=== PATIENT | female | born 1950 | race Caucasian/White ===

== ENCOUNTER → 2018-02-03 10:30 | Outpatient (CLI) | payer MEDICARE, MEDICAID, SELFPAY | PROVIDERS: PCP Nurse Practitioner Family; Visit Provider Nurse Practitioner Gerontology | DX: R33.9 Retention of urine, unspecified (principal); E11.9 Type 2 diabetes mellitus without complications | CPT/HCPCS: 51705 ==

== ENCOUNTER 2018-03-01 09:16 | Outpatient (CLI) | payer MEDICARE, MEDICAID, SELFPAY | END 2018-03-01 09:36 | PROVIDERS: PCP Nurse Practitioner Family; Visit Provider Nurse Practitioner Gerontology | DX: R33.9 Retention of urine, unspecified (principal) | CPT/HCPCS: 51705; 99213 ==

== ENCOUNTER → 2018-03-24 09:18 | Outpatient (BNVA) | payer MEDICARE, MEDICAID, SELFPAY | PROVIDERS: Visit Provider Nurse Practitioner Gerontology | DX: R33.9 Retention of urine, unspecified (principal) | CPT/HCPCS: 51705; 99213 ==

== ENCOUNTER → 2018-04-19 09:18 | Outpatient (BNVA) | payer MEDICARE, MEDICAID, SELFPAY | PROVIDERS: PCP Nurse Practitioner Family; Visit Provider Urology | DX: R33.9 Retention of urine, unspecified (principal) | CPT/HCPCS: 51705; 99211 ==

== ENCOUNTER → 2018-05-10 09:15 | Outpatient (BNVA) | payer MEDICARE, MEDICAID, SELFPAY | PROVIDERS: PCP Nurse Practitioner Family; Visit Provider Nurse Practitioner Gerontology | DX: R33.9 Retention of urine, unspecified (principal) | CPT/HCPCS: 51705; 99213 ==

== ENCOUNTER 2018-05-16 19:58 | Emergency (ER) | payer MEDICARE, MEDICAID, SELFPAY ==
[2018-05-16 20:00] VITALS: BP 107/50; PULSE 79; RESP 20; TEMP 36.2; O2SAT 97
--- NOTE | 2018-05-16 20:11 | W.ED.GENAD ---
Discharge Plan Disposition Patient Disposition: HOME Condition: Stable Discharge Details Chief Complaint: Diabetes Clinical Impression: Hypoglycemia Reason For Visit: SAVANA Primary Care Provider: Bruna Cardenas ED Provider: Guillermo Ford Home Meds and New Rx's Prescriptions: Continue nystatin (bulk) 1 EACH powder 1 ea Miscellaneous QID PRNQty: 1 RF: 12 diaper,brief,adult,disposable [Depend Underwear For Women S-M] 1 EACH misc 1 ea Miscellaneous TID Qty: 100 RF: 12 omeprazole 20 MG capsule,delayed release(DR/EC) 20 mg PO DAILY RF: 0 rivaroxaban [Xarelto] 20 MG tablet 20 mg PO DAILY RF: 0 diltiazem HCl [Cartia XT] 120 MG capsule,extended release 24hr 240 mg PO DAILY Qty: 0 RF: 0 metformin [Glucophage] 1,000 MG tablet 1 tab PO BID RF: 0 metoprolol succinate [Toprol XL] 100 MG tablet extended release 24 hr 100 mg PO BID RF: 0 magnesium oxide [MagOx] 400 MG tablet 400 mg PO DAILY Qty: 30 RF: 0 insulin glargine [Lantus Solostar U-100 Insulin] 300 UNITS/3 ML insulin pen 40 units Sub-Q HS RF: 0 atorvastatin 20 mg Tablet 20 mg PO DAILY RF: 0 insulin aspart U-100 [Novolog PenFill U-100 Insulin] 100 UNIT/ML cartridge 10 - 12 units Sub-Q BID RF: 0 Discharge Instructions Instructions: Diabetic Hypoglycemia (ED) Additional Instructions: follow up with your primary care provider within 1-2 weeks IF you have difficulty breathing, chest pain/pressure, or fevers return to the emergency department Medical Decision Making 68 yo female comes in after she started to feel general weaknes and became sweaty. She states her normal blood sugar is 130, didn't eat dinner and when she had these symptoms she called ems. EMS reports sugar was 70 on their arrival and she states these symptmos are typical for her when she is in the 70's. Was givfen maple syrup and is now with bgfs of 130 and has no complaints. Denies loc, headache, fevers, urinary symptoms, chest pain or sob. Given her symptoms resolved with improvement in her blood sugar and has no residual symptoms will have her eat and d/c home Differential Diagnosis hypoglycemia, diabetes HPI General Mode of arrival: EMS. Date/Time Provider Initiated Documentation: 05/16/18 20:07. Limitations to Documentation: no limitations. Information obtained by: patient. History of Present Illness 68 year old F presents to the emergency department with the chief complaint of weakness, described as moderate, with intensity rated at 4. Patient started experiencing this hour(s) (1) and it has been now resolved. No relieving factors improve symptom(s), Other factors that worsen symptoms (low blood sugar) . Patient did receive the following treatments prior to arrival, other (maple syrup) Related Data Home Medications Medication Instructions Recorded Confirmed omeprazole 20 mg PO DAILY 09/22/12 05/16/18 rivaroxaban [Xarelto] 20 mg PO DAILY 04/20/15 05/16/18 diltiazem HCl [Cartia XT] 240 mg PO DAILY #0 09/16/15 05/16/18 metformin [Glucophage] 1 tab PO BID 11/24/16 05/16/18 metoprolol succinate [Toprol XL] 100 mg PO BID 05/18/17 05/16/18 magnesium oxide [MagOx] 400 mg PO DAILY #30 tab 05/19/17 05/16/18 insulin glargine [Lantus Solostar 40 units SUB-Q HS 07/19/17 05/16/18 U-100 Insulin] nystatin (bulk) 1 ea MISCELLANEOUS QID PRN #1 09/21/17 05/16/18 bottle diaper,brief,adult,disposable #100 ea 10/19/17 05/10/18 [Depend Underwear For Women S-M] atorvastatin 20 mg PO DAILY 05/16/18 05/16/18 insulin aspart U-100 [Novolog 10 - 12 units SUB-Q BID 05/16/18 05/16/18 PenFill U-100 Insulin] Previous Rx's Medication Instructions Recorded diltiazem HCl [Cartia XT] 240 mg PO DAILY #0 09/16/15 magnesium oxide [MagOx] 400 mg PO DAILY #30 tab 05/19/17 diaper,brief,adult,disposable #100 ea 10/19/17 [Depend Underwear For Women S-M] Allergies Allergy/AdvReac Type Severity Reaction Status Date / Time trazodone AdvReac Intermediate NIGHTMARES Verified 05/16/18 20:08 General Stated Complaint: Diabetes ARGENIS: 3 Review of Systems Review of Systems All systems reviewed & are unremarkable except as noted in HPI and below Constitutional Denies chills and Denies fever(s) Eyes Denies loss of vision Cardiovascular Denies chest pain and Denies dyspnea Respiratory Denies dyspnea Gastrointestinal Denies abdominal pain, Denies nausea and Denies vomiting Genitourinary Denies dysuria Musculoskeletal Denies joint swelling Integumentary/Breasts Denies rash Neurologic Denies loss of vision Psychiatric Denies depression Endocrine Denies cold intolerance and Denies heat intolerance Exam Const General: no acute distress Orientation: alert [facility] Head: normal to inspection Ears: external ears normal General nose exam: external nose normal Mouth: moist mucous membranes Eyes General: appearance normal, both eyes and all related structures Neck Neck: normal visual inspection Resp Effort & Inspection: normal respiratory effort and able to speak in complete sentences Cardio Rate: regular rate Skin General skin exam: no rashes or lesions noted Neuro General: alert and oriented x3 Extrem General: normal to inspection Psych Mental Status: mental status grossly normal Course Vital Signs Temperature 36.2 C L 05/16/18 20:00 Pulse 79 05/16/18 20:00 Respiratory Rate 20 05/16/18 20:00 Blood Pressure 107/50 L 05/16/18 20:00 Pulse Oximetry 97 05/16/18 20:00 Temperature 36.2 C L 05/16/18 20:00 Temperature Source Temporal Artery Scan 05/16/18 20:00 Pulse 79 05/16/18 20:00 Respiratory Rate 20 05/16/18 20:00 Respiratory Effort Non-Labored 05/16/18 20:03 Blood Pressure 107/50 L 05/16/18 20:00 Blood Pressure Position Sitting 05/16/18 20:00 Pulse Oximetry 97 05/16/18 20:00 Oxygen Delivery Method Room Air 05/16/18 20:00 Oxygen Flow Rate 0 05/16/18 20:00 Pain Level 0 05/16/18 20:00
--- NOTE | 2018-05-16 20:15 | ED.GENADUL_ITS ---
Discharge Plan Disposition Patient Disposition: HOME Condition: Stable Discharge Details Chief Complaint: Diabetes Clinical Impression: Hypoglycemia Reason For Visit: SAVANA Primary Care Provider: Bruna Cardenas ED Provider: Guillermo Ford Home Meds and New Rx's Prescriptions: Continue nystatin (bulk) 1 EACH powder 1 ea Miscellaneous QID PRNQty: 1 RF: 12 diaper,brief,adult,disposable [Depend Underwear For Women S-M] 1 EACH misc 1 ea Miscellaneous TID Qty: 100 RF: 12 omeprazole 20 MG capsule,delayed release(DR/EC) 20 mg PO DAILY RF: 0 rivaroxaban [Xarelto] 20 MG tablet 20 mg PO DAILY RF: 0 diltiazem HCl [Cartia XT] 120 MG capsule,extended release 24hr 240 mg PO DAILY Qty: 0 RF: 0 metformin [Glucophage] 1,000 MG tablet 1 tab PO BID RF: 0 metoprolol succinate [Toprol XL] 100 MG tablet extended release 24 hr 100 mg PO BID RF: 0 magnesium oxide [MagOx] 400 MG tablet 400 mg PO DAILY Qty: 30 RF: 0 insulin glargine [Lantus Solostar U-100 Insulin] 300 UNITS/3 ML insulin pen 40 units Sub-Q HS RF: 0 atorvastatin 20 mg Tablet 20 mg PO DAILY RF: 0 insulin aspart U-100 [Novolog PenFill U-100 Insulin] 100 UNIT/ML cartridge 10 - 12 units Sub-Q BID RF: 0 Discharge Instructions Instructions: Diabetic Hypoglycemia (ED) Additional Instructions: follow up with your primary care provider within 1-2 weeks IF you have difficulty breathing, chest pain/pressure, or fevers return to the emergency department Medical Decision Making 68 yo female comes in after she started to feel general weaknes and became sweaty. She states her normal blood sugar is 130, didn't eat dinner and when she had these symptoms she called ems. EMS reports sugar was 70 on their arrival and she states these symptmos are typical for her when she is in the 70' s. Was givfen maple syrup and is now with bgfs of 130 and has no complaints. Denies loc, headache, fevers, urinary symptoms, chest pain or sob. Given her symptoms resolved with improvement in her blood sugar and has no residual symptoms will have her eat and d/c home Differential Diagnosis hypoglycemia, diabetes HPI General Mode of arrival: EMS . Date/Time Provider Initiated Documentation: 05/16/18 20:07 . Limitations to Documentation: no limitations . Information obtained by: patient . History of Present Illness 68 year old F presents to the emergency department with the chief complaint of weakness, described as moderate, with intensity rated at 4. Patient started experiencing this hour(s) (1) and it has been now resolved. No relieving factors improve symptom(s), Other factors that worsen symptoms (low blood sugar) . Patient did receive the following treatments prior to arrival , other (maple syrup) Related Data Home Medications Medication Instructions Recorded Confirmed omeprazole 20 mg PO DAILY 09/22/12 05/16/18 rivaroxaban [Xarelto] 20 mg PO DAILY 04/20/15 05/16/18 diltiazem HCl [Cartia XT] 240 mg PO DAILY #0 09/16/15 05/16/18 metformin [Glucophage] 1 tab PO BID 11/24/16 05/16/18 metoprolol succinate [Toprol XL] 100 mg PO BID 05/18/17 05/16/18 magnesium oxide [MagOx] 400 mg PO DAILY #30 tab 05/19/17 05/16/18 insulin glargine [Lantus Solostar 40 units SUB-Q HS 07/19/17 05/16/18 U-100 Insulin] nystatin (bulk) 1 ea MISCELLANEOUS QID PRN #1 09/21/17 05/16/18 bottle diaper,brief,adult,disposable #100 ea 10/19/17 05/10/18 [Depend Underwear For Women S-M] atorvastatin 20 mg PO DAILY 05/16/18 05/16/18 insulin aspart U-100 [Novolog 10 - 12 units SUB-Q BID 05/16/18 05/16/18 PenFill U-100 Insulin] Previous Rx's Medication Instructions Recorded diltiazem HCl [Cartia XT] 240 mg PO DAILY #0 09/16/15 magnesium oxide [MagOx] 400 mg PO DAILY #30 tab 05/19/17 diaper,brief,adult,disposable #100 ea 10/19/17 [Depend Underwear For Women S-M] Allergies Allergy/AdvReac Type Severity Reaction Status Date / Time trazodone AdvReac Intermediate NIGHTMARES Verified 05/16/18 20:08 General Stated Complaint: Diabetes ARGENIS: 3 Review of Systems Review of Systems All systems reviewed & are unremarkable except as noted in HPI and below Constitutional Denies chills and Denies fever(s) Eyes Denies loss of vision Cardiovascular Denies chest pain and Denies dyspnea Respiratory Denies dyspnea Gastrointestinal Denies abdominal pain, Denies nausea and Denies vomiting Genitourinary Denies dysuria Musculoskeletal Denies joint swelling Integumentary/Breasts Denies rash Neurologic Denies loss of vision Psychiatric Denies depression Endocrine Denies cold intolerance and Denies heat intolerance Exam Const General: no acute distress Orientation: alert [facility] Head: normal to inspection Ears: external ears normal General nose exam: external nose normal Mouth: moist mucous membranes Eyes General: appearance normal, both eyes and all related structures Neck Neck: normal visual inspection Resp Effort & Inspection: normal respiratory effort and able to speak in complete sentences Cardio Rate: regular rate Skin General skin exam: no rashes or lesions noted Neuro General: alert and oriented x3 Extrem General: normal to inspection Psych Mental Status: mental status grossly normal Course Vital Signs Temperature 36.2 C L 05/16/18 20:00 Pulse 79 05/16/18 20:00 Respiratory Rate 20 05/16/18 20:00 Blood Pressure 107/50 L 05/16/18 20:00 Pulse Oximetry 97 05/16/18 20:00 Temperature 36.2 C L 05/16/18 20:00 Temperature Source Temporal Artery Scan 05/16/18 20:00 Pulse 79 05/16/18 20:00 Respiratory Rate 20 05/16/18 20:00 Respiratory Effort Non-Labored 05/16/18 20:03 Blood Pressure 107/50 L 05/16/18 20:00 Blood Pressure Position Sitting 05/16/18 20:00 Pulse Oximetry 97 05/16/18 20:00 Oxygen Delivery Method Room Air 05/16/18 20:00 Oxygen Flow Rate 0 05/16/18 20:00 Pain Level 0 05/16/18 20:00
== END 2018-05-16 20:53 | disposition home or self-care (01) ==
LOC: ER 20:52
PROVIDERS: Emergency Provider Emergency Medicine; PCP Nurse Practitioner Family
DX: E11.649 Type 2 diabetes mellitus with hypoglycemia without coma (principal); Z79.4 Long term (current) use of insulin; I10 Essential (primary) hypertension
CPT/HCPCS: 99283

== ENCOUNTER → 2018-06-02 09:26 | Outpatient (BNVA) | payer MEDICARE, MEDICAID, SELFPAY | PROVIDERS: PCP Nurse Practitioner Family; Visit Provider Nurse Practitioner Gerontology | DX: R33.9 Retention of urine, unspecified (principal) | CPT/HCPCS: 51705; 99213 ==

== ENCOUNTER → 2018-07-12 09:18 | Outpatient (BNVA) | payer MEDICARE, MEDICAID, SELFPAY | PROVIDERS: PCP Nurse Practitioner Family; Visit Provider Urology | DX: R33.9 Retention of urine, unspecified (principal); Z46.6 Encounter for fitting and adjustment of urinary device | CPT/HCPCS: 51705; 99212 ==

== ENCOUNTER → 2018-08-09 09:17 | Outpatient (BNVA) | payer MEDICARE, MEDICAID, SELFPAY | PROVIDERS: PCP Nurse Practitioner Family; Visit Provider Nurse Practitioner Gerontology | DX: R33.9 Retention of urine, unspecified (principal) | CPT/HCPCS: 51705; 99213 ==

== ENCOUNTER 2018-09-07 13:50 | Outpatient (REF) | payer MEDICARE, MEDICAID, SELFPAY ==
[2018-09-07 13:36] LABS: HCT 35.9 % (36.0-46.0); HGB 11.1 g/dL (12.0-15.5); Mean Corp. HGB Concentration 30.9 g/dL (32.0-36.0); Mean Corpuscular Hemoglobin 26.3 pg (27.0-33.0); Mean Corpuscular Volume 85.1 fL (80-95); Platelet Count 423 x1000/uL (130-400); RBC 4.22 m/cumm (4.00-5.20); RBC Distribution Width 14.7 % (11.7-14.6); White Blood Cell Count 7.85 k/cumm (4.4-10.8)
[2018-09-07 14:09] LABS: TSH (W/Ref FT4) 0.88 uIU/mL (0.358-3.74)
== END 2018-09-07 14:10 ==
LOC: NCHCN 13:50
PROVIDERS: PCP Nurse Practitioner Family; Visit Provider Nurse Practitioner Family
DX: D64.9 Anemia, unspecified (principal); R53.83 Other fatigue
CPT/HCPCS: 85027; 84443

== ENCOUNTER → 2018-09-20 09:17 | Outpatient (BNVA) | payer MEDICARE, MEDICAID, SELFPAY | PROVIDERS: PCP Nurse Practitioner Family; Visit Provider Urology | DX: R33.9 Retention of urine, unspecified (principal) | CPT/HCPCS: 51705; 99211 ==

== ENCOUNTER 2018-10-10 19:45 | Emergency (ER) | payer MEDICARE, MEDICAID, SELFPAY ==
[2018-10-10] VITALS (37 sets, daily range): BP systolic 112–133; BP diastolic 46–75; PULSE 71–98; RESP 9–28; TEMP 36.8; O2SAT 93–97
--- NOTE | 2018-10-10 20:02 | DI.RAD_ITS ---
SYMPTOM/DIAGNOSIS: CHEST PAIN PA AND LATERAL CHEST: Comparison is made with 01/07/18. The heart size is within normal limits. The lungs are clear. No infiltrate, effusion or pulmonary edema is seen. There are degenerative changes in the spine. IMPRESSION: No acute abnormality.
[2018-10-10 20:14] LABS: Abs Immature Grans 0.02 k/cumm (0.0-0.09); Absolute Basophil Count 0.04 k/cumm (0.0-0.2); Absolute Eosinophil Count 0.15 k/cumm (0.0-0.7); Absolute Monocyte Count 1.02 k/cumm (0.11-0.7); Absolute Neutrophil Count 7.16 k/cumm (1.2-6.7); Basophils % 0.4; Eosinophils % 1.4; HCT 40.7 % (36.0-46.0); HGB 12.6 g/dL (12.0-15.5); Immature Grans % 0.2; Lymphocytes % 22.9; Mean Corpuscular Volume 83.9 fL (80-95); Mean Platelet Volume 10.7 fL (8.0-11.0); Monocytes % 9.4; Neutrophils % 65.7; Platelet Count 417 x1000/uL (130-400); RBC 4.85 m/cumm (4.00-5.20)
--- NOTE | 2018-10-10 20:17 | ED.GENADUL_ITS ---
Discharge Plan Disposition Patient Disposition: [facility] Condition: Stable Discharge Details Chief Complaint: Chest Pain Clinical Impression: Chest pain Primary Care Provider: Bruna Cardenas ED Provider: Cullen Ponce Home Meds and New Rx's Prescriptions: No Action calcium citrate 200 mg (950 mg) tablet 200 mg PO DAILY RF: 0 nystatin (bulk) 1 EACH powder 1 ea Miscellaneous QID PRNQty: 1 RF: 12 Depend Underwear For Women S-M 1 EACH misc 1 ea Miscellaneous TID Qty: 100 RF: 12 omeprazole 20 MG capsule,delayed release(DR/EC) 20 mg PO DAILY RF: 0 Xarelto 20 MG tablet 20 mg PO DAILY RF: 0 diltiazem HCl [Cartia XT] 120 MG capsule,extended release 24hr 240 mg PO DAILY Qty: 0 RF: 0 metformin [Glucophage] 1,000 MG tablet 1 tab PO BID RF: 0 metoprolol succinate [Toprol XL] 100 MG tablet extended release 24 hr 100 mg PO BID RF: 0 magnesium oxide [MagOx] 400 MG tablet 400 mg PO DAILY Qty: 30 RF: 0 Lantus Solostar U-100 Insulin 300 UNITS/3 ML insulin pen 40 units Sub-Q HS RF: 0 atorvastatin 20 mg Tablet 20 mg PO DAILY RF: 0 Novolog PenFill U-100 Insulin 100 UNIT/ML cartridge 10 - 12 units Sub-Q BID RF: 0 Medical Decision Making This is a 68-year-old female with a past medical history of diabetes, hypertension, high cholesterol, A. fib on Xarelto, who presents today for karen luation of chest symptoms. At noon the patient had notable fatigue multiple episodes of nonexertional diaphoresis. She denied any fever or chills otherwise. And then roughly 2 hours ago she had episodes of notable severe chest tightness over her left chest, with no radiation. She has no history of cardiac ischemia however she has a strong family history of it. In addition to multiple risk factors. Exam demonstrates no evidence of shingles, no reproducible component of her chest pain. Vital signs are reassuring. No significant PE red flags on clinical history or exam. Differential certainly includes cardiac etiology, infectious etiology, versus mild musculoskeletal component. Patient will receive serial troponins here in the ED, evaluate for the aforementioned potential etiologies. We will do a nitroglycerin trial. 10:03 PM Chest x-ray is negative, EKG shows no evidence of STEMI. Initial troponin is less than 0.02. Vital signs remained stable. Patient was given nitroglycerin and had complete resolution of her symptoms. With the patient's risk factors of age, diabetes, high cholesterol, hypertension, and strong family history, in conjunction with symptoms relieved with nitroglycerin and a concerning story with diaphoresis and chest pain, I do feel that the patient would benefit from serial troponins, serial EKGs, and not provocative stress testing. Unfortunate ly at this time we have no telemetry beds available, no ICU beds available, and I do feel that this patient would qualify for telemetry needs. We have contacted [facility] and they do not have any beds available. We have [place] [facility] [place] are not accepting transfers until tomorrow morning, we have contacted [facility], they do have some bed availability will reach back to us for acceptance potentially. 11:09 PM The [facility] hospitalist , he and the nurse practitioner agree with the assessment and plan. Patient will be transferred to [facility] for further management, serial troponins and EKG, and provocative stress testing. Of note a urinalysis was drawn from her chronic Barber, there is a small amount of leuk esterase, negative nitrate, WBCs are 20-50, RBCs of 3-5, since this is a chronic Barber we will not immediately start antibiotics, we will wait for cultures return. I have extensively reviewed the treatment plan and discharge instructions with the patient. I have addressed all patient concerns at this time. The patient was made aware of what symptoms to monitor for that would warrant a return to the emergency department. Discussed the plan with the mandy t, they demonstrate verbal understanding and agreement with our assessment and plan at this time. EKG 19: 44 Rate 76, QTc 420, QRS 86, atrial fibrillation, no significant ST elevations or depressions, inverted T wave is present in lead III. Small questionable Q waves in lead III. No other significant abnormalities Comparison: [place] CHEST 2 VIEWS PA,LAT 01/07/2018 8:25 PM Findings: Lungs: Lungs are adequately inflated and symmetric. No focal consolidation or pulmonary edema. Mild eventration right hemidiaphragm. Pleural space: No pleural effusion. No pneumothorax. Heart/Mediastinum: Cardiomediastinal contours within normal limits. Bones/joints: No acute osseous finding. Soft tissues: No focal soft tissue abnormailty. Impression: No acute findings. Dictated and Authenticated by: Tahir Salcedo MD. HPI General Date/Time Provider Initiated Documentation: 10/10/18 19:50 . HPI Narrative: This is a 68-year-old female with a past medical history of A. fib, on Xarelto, congestive heart failure, hypertension, high cholesterol, who presents today for evaluation of chest tightness, fatigue, diaphoresis, and lightheadedness. The patient states that at noon she was feeling poorly and had multiple episodes of unprovoked diaphoresis. It was while sitting and doing nothing, and not during exertional episodes. She did have a mild cough, but denies any pleuritic chest pain, or productivity. She denies any fever or chills. She does admit to occasional diarrhea over the last day. At 6:30 PM roughly 2 hours ago the patient had a notable chest tightness which she describes as a tight-like sensation in the left chest and under the left breast. No radiation to her arm neck or shoulders. No vomiting or diarrhea. No numbness, tingling, or weakness. She denies any history of cardiac disease in regards to cardiac ischemia, she has not had any stents. She does admit to a strong family history of cardiac disease and myocardial infarction. She denies any other complaints or modifying factors at this time. Denies PE risk factors such as recent long car rides, immobilization, recent surgery, prior history of DVT or PE, family history of PE or DVT, morbid obesity, exogenous estrogen and smoking, hemoptysis, history of cancer. Related Data Home Medications Medication Instructions Recorded Confirmed omeprazole 20 mg PO DAILY 09/22/12 10/10/18 Xarelto 20 mg PO DAILY 04/20/15 10/10/18 diltiazem HCl [Cartia XT] 240 mg PO DAILY #0 09/16/15 10/10/18 metformin [Glucophage] 1 tab PO BID 11/24/16 10/10/18 metoprolol succinate [Toprol XL] 100 mg PO BID 05/18/17 10/10/18 magnesium oxide [MagOx] 400 mg PO DAILY #30 tab 05/19/17 10/10/18 Lantus Solostar U-100 Insulin 40 units SUB-Q HS 07/19/17 10/10/18 nystatin (bulk) 1 ea MISCELLANEOUS QID PRN #1 09/21/17 10/10/18 bottle Depend Underwear For Women S-M #100 ea 10/19/17 10/10/18 Novolog PenFill U-100 Insulin 10 - 12 units SUB-Q BID 05/16/18 10/10/18 atorvastatin 20 mg PO DAILY 05/16/18 10/10/18 calcium citrate 200 mg (950 mg) 200 mg PO DAILY tab 09/20/18 10/10/18 tablet Previous Rx's Medication Instructions Recorded diltiazem HCl [Cartia XT] 240 mg PO DAILY #0 09/16/15 magnesium oxide [MagOx] 400 mg PO DAILY #30 tab 05/19/17 Depend Underwear For Women S-M #100 ea 10/19/17 Allergies Allergy/AdvReac Type Severity Reaction Status Date / Time trazodone AdvReac Intermediate NIGHTMARES Verified 10/10/18 19:47 General Stated Complaint: Chest Pain ARGENIS: 2 Review of Systems Review of Systems All systems reviewed & are unremarkable except as noted in HPI and below PFSH Social History Smoking/Tobacco Use Status: Former Tobacco Use Alcohol Intake: never Drug use: Never Substance use type: does not use Do you feel safe at home: Yes Do you feel safe in your relationship?: Yes Exam Narrative Exam Narrative: 1.Const: Well-nourished, Well-developed, appearing stated age 2.Eyes: PERRL, no conjunctival injection, and symmetrical lids. 3.ENT: Atraumatic external nose and ears. Moist MM. Neck: Symmetric, trachea midline, No thyromegaly. 4.CVS: +S1/S2, No murmurs or gallops. Peripheral pulses 2+ and equal in all extremities. Brisk capillary refill in all extremities. 5.RESP: Unlabored respiratory effort. crackles in the left base, no wheezes or ronchi 6.GI: Soft, Nontender/Nondistended, No hepatosplenomegaly. No guarding or rebound. 7.MSK: Normocephalic/Atraumatic, Extremities w/o deformity or ttp No cyanosis or clubbing, Normal movement of all extremities 8.Skin: Warm, Dry. No rashes or lesions. 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 Sensation grossly intact, no focal neurologic deficits. 10.Psych: (AAO) x3. Appropriate mood and affect Course Vital Signs Temperature 36.8 C 10/10/18 19:47 Pulse 88 10/10/18 19:47 Respiratory Rate 16 10/10/18 19:47 Blood Pressure 125/46 L 10/10/18 19:47 Pulse Oximetry 96 10/10/18 19:47 Temperature 36.8 C 10/10/18 19:47 Temperature Source Temporal Artery Scan 10/10/18 19:47 Pulse 88 10/10/18 19:47 Respiratory Rate 18 10/10/18 19:50 Respiratory Effort 10/10/18 19:50 Respiratory Depth Normal 10/10/18 19:50 Respiratory Pattern Normal 10/10/18 19:50 Blood Pressure 125/46 L 10/10/18 19:47 Blood Pressure Position Sitting 10/10/18 19:47 Pulse Oximetry 96 10/10/18 19:47 Oxygen Delivery Method Room Air 10/10/18 19:47 Oxygen Flow Rate 0 10/10/18 19:47 Lab/Test Results Lab/Test Results: Laboratory Tests Range/Units 10/10/18 19:58 WBC (4.4-10.8) k/cumm 10.90 H RBC (4.00-5.20) m/cumm 4.85 Hgb (12.0-15.5) g/dL 12.6 Hct (36.0-46.0) % 40.7 MCV (80-95) fL 83.9 MCH (27.0-33.0) pg 26.0 L MCHC (32.0-36.0) g/dL 31.0 L RDW (11.7-14.6) % 15.0 H Plt Count (130-400) x1000/uL 417 H MPV (8.0-11.0) fL 10.7 Immature Gran % 0.2 Neutrophils % 65.7 Lymphocytes % 22.9 Monocytes % 9.4 Eosinophils % 1.4 Basophils % 0.4 Absolute Neutrophils (1.2-6.7) k/cumm 7.16 H Absolute Lymphocytes (1.2-3.4) k/cumm 2.50 Absolute Monocytes (0.11-0.7) k/cumm 1.02 H Absolute Eosinophils (0.0-0.7) k/cumm 0.15 Absolute Basophils (0.0-0.2) k/cumm 0.04
[2018-10-10 20:27] LABS: ALT 18 U/L (12-78); AST 17 U/L (15-37); Albumin 3.6 g/dL (3.4-5.0); Alkaline Phosphatase 58 U/L (46-116); Anion Gap 14.6 mmol/L (3-11); BUN 21 mg/dL (7-18); Bilirubin, Total 0.2 mg/dL (0.2-1.0); CO2 24.4 mmol/L (21.0-32.0); CREATININE 1.18 mg/dL (0.55-1.02); Calcium 8.9 mg/dL (8.5-10.1); Chloride 101 mmol/L (98-107); Estimated GFR 45.28 (mL/min/1.73m2); Glucose 70 mg/dL (70-100); Potassium 4.4 mmol/L (3.5-5.1); Sodium 140 mmol/L (136-145)
[2018-10-10 20:28] LABS: INR 1.1 (0.9-1.1); PTT Activated 26.3 sec (21.0-31.4); Prothrombin Time 10.6 sec (9.3-11.0)
--- NOTE | 2018-10-10 20:39 | DI.VRAD_ITS ---
EXAM: XR Chest, 2 Views EXAM DATE/TIME: 10/10/2018 8:13 PM CLINICAL HISTORY: 68 years old, female; Chest pain; Type not specified TECHNIQUE: Imaging protocol: XR of the chest, 2 views. COMPARISON: [facility] CHEST 2 VIEWS PA,LAT 01/07/2018 8:25 PM FINDINGS: Lungs: Lungs are adequately inflated and symmetric. No focal consolidation or pulmonary edema. Mild eventration right hemidiaphragm. Pleural space: No pleural effusion. No pneumothorax. Heart/Mediastinum: Cardiomediastinal contours within normal limits. Bones/joints: No acute osseous finding. Soft tissues: No focal soft tissue abnormailty. IMPRESSION: No acute findings. Dictated and Authenticated by: Tahir Salcedo MD. Ordering:CARLEY Berman MD
[2018-10-10 21:03] LABS: Troponin I < 0.02 ng/mL (0.00-0.06)
[2018-10-10] MEDS: Aspirin 325 MG TAB PO (21:07)
[2018-10-10 22:40] LABS: Bilirubin Negative (Negative); Blood Trace-intact (Negative); Clarity Sl Cloudy; Glucose Negative (Negative); Ketones Trace mg/dL (Negative); Leukocyte Esterase Small (Negative); Nitrite Negative (Negative)
[2018-10-10 22:47] LABS: Bacteria Many HPF (Negative); C & S Indicated? Yes; Casts Negative LPF (Negative); Crystals Negative HPF (Negative); Epithelial Cells Few HPF (Negative); Mucus Heavy (Negative); WBC 20-50 HPF (0-5)
[2018-10-10 23:34] LABS: Troponin I 0.02 ng/mL (0.00-0.06)
== END 2018-10-10 23:34 | disposition short-term general hospital (02) ==
PROVIDERS: Emergency Provider Student in an Organized Health Care Education/Training Program; PCP Nurse Practitioner Family
DX: R07.9 Chest pain, unspecified (principal); R42 Dizziness and giddiness; I10 Essential (primary) hypertension; I50.9 Heart failure, unspecified
CPT/HCPCS: 36415; 80053; 87077; 93005; 99285; 71046; 81003; 81015; 84443; 84484; 85025; 85610; 85730; 87086; 87186; 93010

== ENCOUNTER → 2018-10-20 09:36 | Outpatient (BNVA) | payer MEDICARE, MEDICAID, SELFPAY | PROVIDERS: PCP Nurse Practitioner Family; Visit Provider Nurse Practitioner Gerontology | DX: R33.9 Retention of urine, unspecified (principal); Z46.6 Encounter for fitting and adjustment of urinary device | CPT/HCPCS: 51705; 99213 ==

== ENCOUNTER → 2018-11-17 09:17 | Outpatient (BNVA) | payer MEDICARE, MEDICAID, SELFPAY | PROVIDERS: PCP Nurse Practitioner Family; Visit Provider Nurse Practitioner Gerontology | DX: R33.9 Retention of urine, unspecified (principal); R32 Unspecified urinary incontinence; Z43.5 Encounter for attention to cystostomy | CPT/HCPCS: 51705; 99213 ==

== ENCOUNTER → 2018-12-14 09:19 | Outpatient (BNVA) | payer MEDICARE, MEDICAID, SELFPAY | PROVIDERS: PCP Nurse Practitioner Family; Visit Provider Urology | DX: Z46.6 Encounter for fitting and adjustment of urinary device (principal); R33.9 Retention of urine, unspecified | CPT/HCPCS: 99211; 51705 ==

== ENCOUNTER → 2019-01-07 09:19 | Outpatient (BNVA) | payer MEDICARE, MEDICAID, SELFPAY | PROVIDERS: PCP Nurse Practitioner Family; Visit Provider Urology | DX: R33.9 Retention of urine, unspecified (principal); Z46.6 Encounter for fitting and adjustment of urinary device | CPT/HCPCS: 51705; 99211 ==

== ENCOUNTER → 2019-02-01 09:24 | Outpatient (BNVA) | payer MEDICARE, MEDICAID, SELFPAY | PROVIDERS: PCP Nurse Practitioner Family; Visit Provider Nurse Practitioner Gerontology | DX: R33.9 Retention of urine, unspecified (principal); R32 Unspecified urinary incontinence; Z46.6 Encounter for fitting and adjustment of urinary device | CPT/HCPCS: 51705; 99202; 99213 ==

== ENCOUNTER → 2019-02-25 09:27 | Outpatient (BNVA) | payer MEDICARE, MEDICAID, SELFPAY | PROVIDERS: PCP Nurse Practitioner Family; Visit Provider Urology | DX: R33.9 Retention of urine, unspecified (principal); Z46.6 Encounter for fitting and adjustment of urinary device | CPT/HCPCS: 51705; 99212 ==

== ENCOUNTER → 2019-03-28 09:23 | Outpatient (BNVA) | payer MEDICARE, MEDICAID, SELFPAY | PROVIDERS: PCP Nurse Practitioner Family; Referring Provider Nurse Practitioner Family; Visit Provider Nurse Practitioner Gerontology | DX: R33.9 Retention of urine, unspecified (principal); R32 Unspecified urinary incontinence; Z46.6 Encounter for fitting and adjustment of urinary device | CPT/HCPCS: 51705; 99212 ==

== ENCOUNTER 2019-04-21 12:30 | Outpatient (REF) | payer MEDICARE, MEDICAID, SELFPAY ==
[2019-04-21 20:09] LABS: HCT 38.3 % (36.0-46.0); HGB 11.5 g/dL (12.0-15.5); Mean Corpuscular Hemoglobin 25.4 pg (27.0-33.0); Mean Corpuscular Volume 84.5 fL (80-95); Mean Platelet Volume 11.3 fL (8.0-11.0); Platelet Count 463 x1000/uL (130-400); RBC 4.53 m/cumm (4.00-5.20); RBC Distribution Width 14.9 % (11.7-14.6); White Blood Cell Count 6.86 k/cumm (4.4-10.8)
[2019-04-21 20:41] LABS: ALT 23 U/L (14-59); AST 17 U/L (15-37); Albumin 3.8 g/dL (3.4-5.0); Alkaline Phosphatase 52 U/L (46-116); Anion Gap 9.9 mmol/L (3-11); BUN 5 mg/dL (7-18); Bilirubin, Total 0.3 mg/dL (0.2-1.0); CO2 28.1 mmol/L (21.0-32.0); CREATININE 0.87 mg/dL (0.55-1.02); Calcium 8.9 mg/dL (8.5-10.1); Chloride 103 mmol/L (98-107); Glucose 194 mg/dL (70-100); Potassium 4.3 mmol/L (3.5-5.1); Sodium 141 mmol/L (136-145); Total Protein 7.8 g/dL (6.4-8.2)
[2019-04-21 20:53] LABS: COMMENT (LAB VIEW ONLY) 192.32 mg/dL; PROTEIN 72.2 mg/dL; Prot/Crea Ur Ratio 0.37
[2019-04-21 21:03] LABS: COMMENT (LAB VIEW ONLY) 191.91 mg/dL
[2019-04-21 21:05] LABS: Microalb ug/mg Crea 111.7 ug/mg Cr
[2019-04-25 16:12] LABS: Hepatitis C Ab w Rflx HCV PCR Negative (NEGAT)
== END 2019-04-21 12:50 ==
LOC: NCHCN 12:30
PROVIDERS: PCP Nurse Practitioner Family; Visit Provider Nurse Practitioner Family
DX: E11.9 Type 2 diabetes mellitus without complications (principal); I10 Essential (primary) hypertension; D64.9 Anemia, unspecified; R94.4 Abnormal results of kidney function studies; Z11.59 Encounter for screening for other viral diseases
CPT/HCPCS: 80053; 85027; 86803; 82043; 82565; 82570; 84156

== ENCOUNTER → 2019-04-25 09:20 | Outpatient (BNVA) | payer MEDICARE, MEDICAID, SELFPAY | PROVIDERS: PCP Nurse Practitioner Family; Referring Provider Nurse Practitioner Family; Visit Provider Nurse Practitioner Gerontology | DX: R33.9 Retention of urine, unspecified (principal); R32 Unspecified urinary incontinence; Z46.6 Encounter for fitting and adjustment of urinary device | CPT/HCPCS: 51705; 99212 ==

== ENCOUNTER 2019-05-12 09:11 | Emergency (ER) | payer MEDICARE, MEDICAID, SELFPAY ==
[2019-05-12] VITALS (41 sets, daily range): BP systolic 122–144; BP diastolic 61–88; PULSE 79–113; RESP 11–26; TEMP 36.5; O2SAT 94–99
[2019-05-12] MEDS: Normal Saline 1,000 ML 1000 ML IV (09:15)
--- NOTE | 2019-05-12 09:40 | DI.RAD_ITS ---
EXAM: XR CHEST 2V PA LATERAL INDICATION: dizziness, nausea. COMPARISON: XR CHEST 2V PA LATERAL from 10/10/2018 TECHNIQUE: 2D digital imaging was performed. FINDINGS: The heart size and pulmonary vasculature are within normal limits. The lungs are clear. No pleural effusion or pneumothorax is identified. Degenerative changes are seen in the spine. IMPRESSION: No acute pulmonary process.
--- NOTE | 2019-05-12 09:45 | ED.GENADUL_ITS ---
Discharge Plan Disposition Patient Disposition: HOME Condition: Good Discharge Details Chief Complaint: Urinary Clinical Impression: Medication reaction, Acute dehydration Primary Care Provider: Raheem Lew ED Provider: Meenakshi Hammond Home Meds and New Rx's Prescriptions: Discontinued Ozempic 1 mg/dose (2 mg/1.5 mL) Pen Injector 1 mg SUBCUT .WEEKLY RF: 0 No Action nystatin 100,000 unit/gram powder 1 applic TP TID PRN (Reason: rash) Qty: 60 RF: 6 calcium citrate 200 mg (950 mg) tablet 200 mg PO DAILY RF: 0 (DME) Depend Underwear For Women S-M 1 EACH misc 1 ea Miscellaneous TID Qty: 100 RF: 12 omeprazole 20 MG capsule,delayed release(DR/EC) 20 mg PO DAILY RF: 0 Xarelto 20 MG tablet 20 mg PO DAILY RF: 0 diltiazem HCl [Cartia XT] 120 MG capsule,extended release 24hr 240 mg PO DAILY Qty: 0 RF: 0 metformin [Glucophage] 1,000 MG tablet 1 tab PO BID RF: 0 metoprolol succinate [Toprol XL] 100 MG tablet extended release 24 hr 100 mg PO BID RF: 0 magnesium oxide [MagOx] 400 MG tablet 400 mg PO DAILY Qty: 30 RF: 0 Lantus Solostar U-100 Insulin 300 UNITS/3 ML insulin pen 40 units Sub-Q HS RF: 0 lisinopril 10 mg Tablet 10 mg PO DAILY RF: 0 Tresiba FlexTouch U-200 200 unit/mL (3 mL) Insulin Pen 45 unit SUBCUT DAILY RF: 0 atorvastatin 20 mg Tablet 20 mg PO DAILY RF: 0 Novolog PenFill U-100 Insulin 100 UNIT/ML cartridge 10 - 12 units Sub-Q BID RF: 0 Discharge Instructions Instructions: Dehydration (ED) Additional Instructions: Drink plenty of fluids by mouth. Rest activities as tolerated. Please follow-up promptly with your primary care doctor for reevaluation. Stop your new diabetic medication as discussed. Continue your other daily medications. Closely monitor your blood sugars. Return to the emergency room for any worsening, alarming or increase in your symptoms. Medical Decision Making 69-year-old patient who presents for 1 week of vague nausea. Patient attributes this nausea and mild malaise to starting a new diabetic medication. Patient reports she recently started Ozempic 2 weeks ago. Patient reports she has tried this medication once in the past and was unsuccessful due to side effects. Patient reports she receives subcu injection once a week. Patient reports in the last week she noted onset of nausea and mild malaise. Denies any focal pain. She did report a single episode of diarrhea 2 days ago. No associated blood with bowel movements. Patient reports due to the nausea she has had decreased p.o. intake of food and fluid. Patient reports today she is feeling quite dehydrated. Patient has a chronic indwelling urinary catheter which is changed once monthly. Patient reports overnight urine output was very scant when she awoke this morning. Urine was noted to be darker with a bit of a malodorous scent. Patient initially reported mild abdominal discomfort but reports no significant abdominal pain on exam. Patient describes her abdominal discomfort is mild. Patient denies fever or chills. Patient reports no active chest pain, difficulty breathing with shortness of breath or wheezing. She does report mild dizziness without associated headache. No gait instability. Patient denies any back pain. She denies any swelling of her legs. Denies any pain in her legs. Of note patient is on Xarelto for history of A. fib. She denies palpitations. On exam patient appears to have mildly dry mucous membranes. Clear breath sounds bilaterally. No regular rhythm is noted. Patient has a benign abdominal exam. No obvious abdominal distention. Patient provided 1 L of IV fluid. She reports her symptoms are significantly improved. Trial of p.o. fluids was successful, no difficulty drinking. Patient given a few crackers after p.o. trial of fluids which she also tolerated without difficulty. Patient now reports she has an increase in her appetite. I spoke with patient's primary care doctor EKG reveals atrial fibrillation. Heart rate of 92. Irregular rhythm. No ST segment changes noted. No significant change compared to EKG on on 01/07/2018. This was reviewed with Dr. Guillermo Ford Spoke with patient's primary care practitioner, Raheem. Discussed patient's symptoms. She recommends discontinuation of the new medication at this time. We will follow-up with the patient in the office. Patient's urinalysis is not noted to have leukocyte esterase, white blood cells as well as bacteria which has been seen on her previous urinalysis. Patient's urine is normal-appearing at this time. Patient continues to have benign abdominal exam, no CVA tenderness. Is feeling significantly improved. Has no elevated leukocytosis or fever. I do not feel this patient needs to be treated aggressively with antibiotics rather will send urine culture given her complaints of malodorous urine however I do suspect the patient was likely dehydrated which is the cause of her urinary changes and decreased urine output. Patient agrees with plan of care of holding on antibiotic treatment at this time, will follow up with Dr. Monaco. Again patient has no associated leukocytosis. Troponin initially was negative. Patient's creatinine mildly elevated which is consistent with likely dehydration but this is not a significant change compared to her baseline. Initial and repeat troponins both negative. Patient feeling significantly improved. The patient was stable and requested discharge. Prior to discharge, my usual and customary return precautions were reviewed with the patient - this included follow-up instructions and reasons to return to the Emergency Department if conditions worsens, does not improve as expected, or other new concerns arise. HPI General Date/Time Provider Initiated Documentation: 05/12/19 09:14 . HPI Narrative: This is a 69-year-old medically complicated patient who has a history of A. fib as well as type 2 diabetes managed both with metformin and insulin history of CHF, hyperlipidemia. Patient is currently taking Xarelto for her A. fib management. Patient presents to the emergency room today for complaints of 1 week of vague nausea without vomiting which is interfering with her ability to eat and drink. Patient reports she can drink fluids by mouth however has food aversion at this time due to her nausea. No active vomiting. Patient denies significant abdominal pain. Patient is concerned as she has very scant urine output overnight significantly less than she expected. Patient reports foul odo r to the urine was noted this morning. Patient's indwelling urine catheter was placed 2 weeks ago and is changed once monthly. Patient reports symptoms began when she started a new diabetes medication once a week SC insulin. Patient reports the medication, Ozempic, she had taken once in the past and was unable to tolerate the medication therefore it was discontinued. Patient restarted this medication 2 weeks ago. Patient reports vague nausea and ill feeling for the last week. Patient specifically denies headache. Admits to mild dizziness. Admits to feeling dehydrated. Patient denies any chest pain or palpitations at this time. No associated back pain. Patient denies any obvious sites of pain. Patient denies any fluid in the legs or swelling in the legs distally. Related Data Home Medications Medication Instructions Recorded Confirmed omeprazole 20 mg PO DAILY 09/22/12 05/12/19 Xarelto 20 mg PO DAILY 04/20/15 05/12/19 diltiazem HCl [Cartia XT] 240 mg PO DAILY #0 09/16/15 05/12/19 metformin [Glucophage] 1 tab PO BID 11/24/16 05/12/19 metoprolol succinate [Toprol XL] 100 mg PO BID 05/18/17 05/12/19 magnesium oxide [MagOx] 400 mg PO DAILY #30 tab 05/19/17 05/12/19 Lantus Solostar U-100 Insulin 40 units SUB-Q HS 07/19/17 05/12/19 Depend Underwear For Women S-M #100 ea 10/19/17 04/25/19 Novolog PenFill U-100 Insulin 10 - 12 units SUB-Q BID 05/16/18 05/12/19 atorvastatin 20 mg PO DAILY 05/16/18 05/12/19 calcium citrate 200 mg (950 mg) 200 mg PO DAILY tab 09/20/18 05/12/19 tablet nystatin 100,000 unit/gram topical 1 applic TP TID PRN #60 gm 11/17/18 05/12/19 powder insulin degludec [Tresiba 45 unit SUBCUT DAILY 05/12/19 05/12/19 FlexTouch U-200] lisinopril 10 mg PO DAILY 05/12/19 05/12/19 Previous Rx's Medication Instructions Recorded diltiazem HCl [Cartia XT] 240 mg PO DAILY #0 09/16/15 magnesium oxide [MagOx] 400 mg PO DAILY #30 tab 05/19/17 Depend Underwear For Women S-M #100 ea 10/19/17 nystatin 100,000 unit/gram topical 1 applic TP TID PRN #60 gm 11/17/18 powder Allergies Allergy/AdvReac Type Severity Reaction Status Date / Time trazodone AdvReac Intermediate NIGHTMARES Verified 10/10/18 19:47 General Stated Complaint: Urinary ARGENIS: 3 Review of Systems All systems reviewed & are unremarkable except as noted in HPI and below Constitutional Constitutional: Denies chills, Reports excessive sweating, Denies fever(s), Den ies headache(s) and Reports malaise ENT Ears, Nose, Mouth, and Throat: Denies vertigo, Denies dizziness, Denies headache(s), Reports nasal discharge, Reports post nasal drip, Denies sinus pain, Denies sinus pressure, Denies sore throat and Denies throat swelling Cardiovascular Cardiovascular: Denies chest pain, Denies chest pain at rest, Denies syncope, Denies edema and Denies palpitations Respiratory Respiratory: Denies cough, Denies pain with cough and Denies wheezing Gastrointestinal Gastrointestinal: Reports abdominal pain, Reports diarrhea, Reports nausea and Denies vomiting Genitourinary Genitourinary: Denies hematuria and Denies flank pain Neurologic Neurologic: Denies vertigo, Denies dizziness, Denies syncope and Denies headache(s) Endocrine Endocrine: Reports excessive sweating and Denies palpitations Allergic/Immunologic Allergic/Immunologic: Denies throat swelling and Denies wheezing [facility] Medical History Atrial fibrillation Cataracts, bilateral CHF (congestive heart failure) Diabetes Hyperlipidemia Social History Smoking/Tobacco Use Status: Former Tobacco Use Alcohol Intake: never Drug use: Never Substance use type: does not use Do you feel safe at home: Yes Do you feel safe in your relationship?: Yes Exam Narrative Exam Narrative: CONST: Healthy appearing patient, in no acute distress. Alert and alert. HENMT: Head nomocephalic, normal to inspection. Atraumatic. Hearing grossly normal. External ear canal no erythema or swelling. TM normal bilaterally. Nose normal to inspection. No rhinnorhea. Normal facial exam. Oral mucosa normal. Tounge normal. Dentition normal. Normal posterior oropharynx. Uvula midline. EYES: General normal appearance. Alignment normal. Eyelids normal. Conjunctiva normal. Sclera normal. PERRL. NECK: Normal visual inspection. FROM. No lymphadenopathy. Trachea midline. No Midline tenderness. CHEST: Normal insepection of the chest. RESP: Normal respiratory effort. Speaking full sentences. No cough. No wheezing. No retractions. Clear to auscaltation. Breath sound equal and present bilaterally. CARDIO: No JVD. Normal PMI. Regular Rate. Irregular rhythm. Normal peripheral pulses. GI: Normal inspection of abdomen. No distension. Soft. Nontender. Bowel sounds present in all 4 quadrants. No rebound. No gaurding. MUSCULOSKELETAL: Normal Gait. FROM of all extremities. Distal neurovascularly intact. Sensation intact distally. No distal edema in lower extremities noted SKIN: Normal. Dry. No rashes. NEURO: Alert and awake. Speech clear. PSYCH: Normal affect. Cooperative. Course Vital Signs Vital signs: Vital Signs Temperature 36.5 C 05/12/19 09:16 Pulse 91 H 05/12/19 09:16 Respiratory Rate 16 05/12/19 09:16 Blood Pressure 134/68 05/12/19 09:16 Pulse Oximetry 94 L 05/12/19 09:16 Temperature 36.5 C 05/12/19 09:16 Temperature Source Oral 05/12/19 09:16 Pulse 91 H 05/12/19 09:16 Respiratory Rate 16 05/12/19 09:16 Respiratory Effort Non-Labored 05/12/19 09:16 Blood Pressure 134/68 05/12/19 09:16 Blood Pressure Position Sitting 05/12/19 09:16 Pulse Oximetry 94 L 05/12/19 09:16 Oxygen Delivery Method Room Air 05/12/19 09:16 Oxygen Flow Rate 0 05/12/19 09:16 Pain Level 0 05/12/19 09:16
[2019-05-12 09:58] LABS: Abs Immature Grans 0.01 k/cumm (0.0-0.09); Absolute Basophil Count 0.02 k/cumm (0.0-0.2); Absolute Eosinophil Count 0.04 k/cumm (0.0-0.7); Absolute Lymphocyte Count 2.46 k/cumm (1.2-3.4); Absolute Monocyte Count 1.04 k/cumm (0.11-0.7); Absolute Neutrophil Count 5.13 k/cumm (1.2-6.7); Basophils % 0.2; Eosinophils % 0.5; HCT 38.3 % (36.0-46.0); HGB 11.8 g/dL (12.0-15.5); Immature Grans % 0.1; Lymphocytes % 28.3; Mean Corp. HGB Concentration 30.8 g/dL (32.0-36.0); Mean Corpuscular Hemoglobin 25.6 pg (27.0-33.0); Mean Corpuscular Volume 83.1 fL (80-95); Mean Platelet Volume 10.3 fL (8.0-11.0); Neutrophils % 58.9; Platelet Count 515 x1000/uL (130-400); RBC 4.61 m/cumm (4.00-5.20); RBC Distribution Width 15.3 % (11.7-14.6)
[2019-05-12 10:10] LABS: ALT 18 U/L (14-59); AST 17 U/L (15-37); Albumin 3.5 g/dL (3.4-5.0); Alkaline Phosphatase 47 U/L (46-116); BUN 24 mg/dL (7-18); Bilirubin, Total 0.3 mg/dL (0.2-1.0); CREATININE 1.28 mg/dL (0.55-1.02); Calcium 8.5 mg/dL (8.5-10.1); Chloride 103 mmol/L (98-107); Estimated GFR 41.11 (mL/min/1.73m2); Glucose 85 mg/dL (74-106); Lipase 423 U/L (73-393); Sodium 139 mmol/L (136-145); Total Protein 7.7 g/dL (6.4-8.2)
[2019-05-12 10:10] LABS: Bilirubin Small (Negative); Blood Trace-lysed (Negative); Clarity Cloudy (Clear); Glucose Negative (Negative); Ketones Trace mg/dL (Negative); Leukocyte Esterase Moderate (Negative); Nitrite Negative (Negative); Urobilinogen 0.2 EU/dL (Up TO 0.2); pH 7.5 (5-8)
[2019-05-12 10:11] LABS: Troponin I < 0.05 ng/Ml (<0.06)
[2019-05-12 10:14] LABS: NT-proBNP 640 pg/mL (<300)
[2019-05-12 10:20] LABS: WBC >50 HPF (0-5)
[2019-05-12 10:21] LABS: Bacteria Many HPF (Negative); C & S Indicated? C&S Done As Ordered; Epithelial Cells Few HPF (Negative)
--- NOTE | 2019-05-12 12:47 | NUR.NOTE ---
Nursing Note: provided pt with snack. pt tolerated well.
[2019-05-12 13:49] LABS: Troponin I < 0.05 ng/Ml (<0.06)
== END 2019-05-12 14:19 | disposition home or self-care (01) ==
PROVIDERS: Emergency Provider Physician Assistant; PCP Nurse Practitioner Family
DX: E86.0 Dehydration (principal); R11.0 Nausea; R53.81 Other malaise; T50.995A Adverse effect of other drugs, medicaments and biological substances, initial encounter; E11.9 Type 2 diabetes mellitus without complications; Z79.4 Long term (current) use of insulin; Z79.01 Long term (current) use of anticoagulants; I48.91 Unspecified atrial fibrillation; Z96.0 Presence of urogenital implants
CPT/HCPCS: 36415; 36416; 80053; 82962; 83690; 93005; 96360; 96361; 99285; 71046; 81003; 81015; 83880; 84484; 85025; 87086; 93010

== ENCOUNTER → 2019-05-23 09:22 | Outpatient (BNVA) | payer MEDICARE, MEDICAID, SELFPAY | PROVIDERS: PCP Nurse Practitioner Family; Referring Provider Nurse Practitioner Family; Visit Provider Nurse Practitioner Gerontology | DX: R33.9 Retention of urine, unspecified (principal); R32 Unspecified urinary incontinence; Z46.6 Encounter for fitting and adjustment of urinary device | CPT/HCPCS: 51705; 99213 ==

== ENCOUNTER → 2019-06-16 09:27 | Outpatient (BNVA) | payer MEDICARE, MEDICAID, SELFPAY | PROVIDERS: PCP Nurse Practitioner Family; Referring Provider Nurse Practitioner Family; Visit Provider Urology | DX: R33.9 Retention of urine, unspecified (principal); Z46.6 Encounter for fitting and adjustment of urinary device | CPT/HCPCS: 51705; 99212 ==

== ENCOUNTER 2019-07-14 09:24 | Inpatient (IN) | payer MEDICARE, MEDICAID, SELFPAY ==
[2019-07-14] VITALS (26 sets, daily range): BP systolic 136–177; BP diastolic 81–113; PULSE 93–140; RESP 13–25; TEMP 36–37.3; O2SAT 93–99
--- NOTE | 2019-07-14 09:25 | ED.GENADUL_ITS ---
Discharge Plan Disposition Patient Disposition: [facility] INPATIENT Condition: Stable Discharge Details Chief Complaint: CVA/TIA Clinical Impression: TIA (transient ischemic attack), UTI (urinary tract infection) Admit Date/Time: 07/14/19 11:26 Admit Provider: Amarilis May Attending Provider: Amarilis May Primary Care Provider: Raheem Lew ED Provider: Stephanie Crenshaw Discharge Data Discharge Date/Time-TO BE ENTERED AT DEPARTURE: 07/14/19 12:37 Medical Decision Making <Stephanie Crenshaw - Last Filed: 07/15/19 08:23> 69-year-old female presents with resolving left-sided weakness and left thigh vi sual disturbance. Onset was approximately 8 AM this morning upon wakening. Patient does have a history of diabetes atrial fibrillation is and on Xarelto for anticoagulation. Upon arrival she is deficit free. 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 And vision loss is resolved. CT ordered and labs. ABCD2 score is 6 points, high risk CT Head negative for mass or bleed, no change from previous. EXAM: XR CHEST 2V AP LATERAL CLINICAL HISTORY: Weakness. TECHNIQUE: 2D digital imaging was performed. COMPARISON: XR CHEST 2V PA LATERAL from 05/12/2019 FINDINGS: LUNGS: Clear. No pleural abnormality seen. HEART: Normal. MEDIASTINUM: Normal. OTHER FINDINGS:Normal. BONE:Normal. IMPRESSION: No acute pulmonary findings. Ordered By: Stephanie Crenshaw EXAM: CT HEAD WO CLINICAL HISTORY: Resolving left sided weakness TECHNIQUE: The exam was performed without contrast. COMPARISON: HEAD WITHOUT CONTRAST from 01/07/2018 FINDINGS: The ventricles and sulci are consistent with the patient's age. There are areas of decreased attenuation in the white matter consistent with small vessel ischemic disease. No evidence of an acute territorial infarct are seen. No acute intracranial hemorrhage is present. There is no acute midline shift or mass effect. The ventricles are intact. The calvarium is intact. There is mild mucosal thickening in the visualized paranasal sinuses. No fluid levels are seen. The mastoid air cells are well pneumatized. IMPRESSION: No acute intracranial process. The findings were discussed with the emergency department on the date of the examination. [id number]: Total DLP = 0.00 mGy-cm Ordered By: Stephanie Crenshaw CC: Dictated By: Andi Shelley M.D. Plan is to consult with hospitalist for possible TIA EXAM: XR SHOULDER LT COMPLETE 2+V INDICATION: Fall, pain. COMPARISON: XR CHEST 2V PA LATERAL from 05/12/2019 TECHNIQUE: 2D digital imaging was performed. FINDINGS: There are degenerative changes seen at the acromioclavicular joint and the glenohumeral joint. No acute fracture or dislocation is present. The soft tissues are unremarkable. IMPRESSION: No acute abnormality. Ordered By: Stephanie Crenshaw [id number]: Spoke with Dr. May who is on for hospitalist services she agrees to admit patient for TIA and UTI due to patient being at high risk with a history of Diabetes and A-fib. Patient aware of plan for admission and verbalizes understanding. Lab Data Lab results reviewed: Yes I reviewed the patient's lab results. <Cullen Ponce DO - Last Filed: 07/14/19 09:40> EKG 9: 32 Rate 100, atrial fibrillation, QTc 451, QRS 86, no significant ST elevations or depressions, no evidence of STEMI. No significant inverted T waves. <KATHLEEN Lrasen - Last Filed: 07/14/19 11:35> My name was added to this chart is error. HPI <Stephanie Crenshaw - Last Filed: 07/15/19 08:23> General Mode of arrival: EMS . Date/Time Provider Initiated Documentation: 07/14/19 09:28 . Limitations to Documentation: no limitations . Information obtained by: patient . HPI Narrative: 69-year-old female presents via EMS for left-sided weakness which began this morning after waking up. It has since resolved. She reports that her left side felt numb and out of control. Upon arrival there is no facial droop, no slurred speech, no complaints of headache. No observed arm drift. She is alert and oriented x4 and able to follow all commands. CT ordered. Related Data Home Medications Medication Instructions Recorded Confirmed omeprazole 20 mg PO DAILY 09/22/12 07/14/19 Xarelto 20 mg PO DAILY 04/20/15 07/14/19 metformin [Glucophage] 1 tab PO BID 11/24/16 07/14/19 metoprolol succinate [Toprol XL] 100 mg PO BID 05/18/17 07/14/19 magnesium oxide [MagOx] 400 mg PO DAILY #30 tab 05/19/17 07/14/19 Depend Underwear For Women S-M #100 ea 10/19/17 05/23/19 atorvastatin 20 mg PO DAILY 05/16/18 07/14/19 insulin aspart U-100 [Novolog 12 units SUB-Q BID 05/16/18 07/14/19 PenFill U-100 Insulin] insulin degludec [Tresiba 45 unit SUBCUT DAILY 05/12/19 07/14/19 FlexTouch U-200] lisinopril 10 mg PO DAILY 05/12/19 07/14/19 diltiazem HCl 180 mg PO DAILY 07/14/19 07/14/19 Previous Rx's Medication Instructions Recorded magnesium oxide [MagOx] 400 mg PO DAILY #30 tab 05/19/17 Depend Underwear For Women S-M #100 ea 10/19/17 Allergies Allergy/AdvReac Type Severity Reaction Status Date / Time trazodone AdvReac Intermediate NIGHTMARES Verified 07/14/19 09:59 General ARGENIS: 3 Review of Systems <Stephanie Crenshaw - Last Filed: 07/15/19 08:23> Constitutional Constitutional: Reports as per HPI and Reports weakness Eyes Eyes: Reports loss of vision (Left eye, now resolved) ENT Ears, Nose, Mouth, and Throat: Reports system reviewed and no additional complaints, except as docu, Denies vertigo, Denies dizziness and Denies nasal trauma Cardiovascular Cardiovascular: Denies chest pain, Denies syncope, Reports irregular heart rhythm (History of atrial fibrillation) and Denies dyspnea Respiratory Respiratory: Denies cough, Denies hemoptysis and Denies dyspnea Gastrointestinal Gastrointestinal: Reports system reviewed and no additional complaints, except as docu Genitourinary Genitourinary: Reports other (Has hodge in place, reports cloudy output last couple of days. Gets Hodge c) Musculoskeletal Musculoskeletal: Reports numbness and Reports tingling Neurologic Neurologic: Denies vertigo, Denies dizziness, Denies syncope, Reports loss of vision (Left eye, now resolved), Reports numbness, Denies convulsions, Reports tingling and Reports weakness PFSH <Stephanie Den - Last Filed: 07/15/19 08:23> Medical History Atrial fibrillation Cataracts, bilateral CHF (congestive heart failure) Diabetes Hyperlipidemia Social History Smoking/Tobacco Use Status: Former Tobacco Use Alcohol Intake: never Drug use: Never Substance use type: does not use Do you feel safe at home: Yes Do you feel safe in your relationship?: Yes Exam <Stephanie Crenshaw - Last Filed: 07/15/19 08:23> Const General: cooperative and no acute distress Orientation: alert, awake and oriented x3 HENMT Head: normal to inspection Eyes General: appearance normal, both eyes and all related structures Alignment and Position: alignment normal Pupils: PERRL Resp Effort & Inspection: normal respiratory effort Auscultation: clear to auscultation bilaterally Cardio Rate: regular rate (irregular) Rhythm: regular rhythm Heart Sounds: S1 normal and S2 normal Neuro General: alert, awake, oriented x3, moves all extremities and CN's II-XI intact bilaterally Cranial Nerves: PERRL, EOM intact bilaterally, no nystagmus, facial strength normal and tongue midline Cognition: normal cognition Speech: speech normal Pupils: Normal pupillary reactivity/response: bilateral Other: Intact finger to nose Extrem Left upper extremity: shoulder/upper arm Details: tenderness and abnormal ROM; no deformity
[2019-07-14 10:10] LABS: Abs Immature Grans 0.08 k/cumm (0.0-0.09); Absolute Basophil Count 0.02 k/cumm (0.0-0.2); Absolute Eosinophil Count 0.05 k/cumm (0.0-0.7); Absolute Lymphocyte Count 2.07 k/cumm (1.2-3.4); Absolute Monocyte Count 0.62 k/cumm (0.11-0.7); Absolute Neutrophil Count 5.33 k/cumm (1.2-6.7); Basophils % 0.2; Eosinophils % 0.6; HCT 39.3 % (36.0-46.0); HGB 12.1 g/dL (12.0-15.5); Lymphocytes % 25.3; Mean Corp. HGB Concentration 30.8 g/dL (32.0-36.0); Mean Corpuscular Hemoglobin 26.1 pg (27.0-33.0); Mean Corpuscular Volume 84.7 fL (80-95); Mean Platelet Volume 10.4 fL (8.0-11.0); Monocytes % 7.6; Neutrophils % 65.3; Platelet Count 431 x1000/uL (130-400); RBC 4.64 m/cumm (4.00-5.20); RBC Distribution Width 16.4 % (11.7-14.6); White Blood Cell Count 8.17 k/cumm (4.4-10.8)
--- NOTE | 2019-07-14 10:12 | DI.CT_ITS ---
EXAM: CT HEAD WO CLINICAL HISTORY: Resolving left sided weakness TECHNIQUE: The exam was performed without contrast. COMPARISON: HEAD WITHOUT CONTRAST from 01/07/2018 FINDINGS: The ventricles and sulci are consistent with the patient's age. There are areas of decreased attenua tion in the white matter consistent with small vessel ischemic disease. No evidence of an acute terr itorial infarct are seen. No acute intracranial hemorrhage is present. There is no acute midline sh ift or mass effect. The ventricles are intact. The calvarium is intact. There is mild mucosal thic kening in the visualized paranasal sinuses. No fluid levels are seen. The mastoid air cells are wel l pneumatized. IMPRESSION: No acute intracranial process. The findings were discussed with the emergency department on the date of the examination.
[2019-07-14 10:15] LABS: ALT 20 U/L (14-59); AST 22 U/L (15-37); Albumin 3.5 g/dL (3.4-5.0); Alkaline Phosphatase 58 U/L (46-116); Anion Gap 12.6 mmol/L (3-11); BUN 23 mg/dL (7-18); Bilirubin, Total 0.3 mg/dL (0.2-1.0); CO2 26.4 mmol/L (21.0-32.0); CREATININE 1.36 mg/dL (0.55-1.02); Calcium 8.7 mg/dL (8.5-10.1); Chloride 103 mmol/L (98-107); Estimated GFR 38.33 (mL/min/1.73m2); Glucose 86 mg/dL (74-106); Potassium 4.3 mmol/L (3.5-5.1); Sodium 142 mmol/L (136-145); Total Protein 7.9 g/dL (6.4-8.2)
--- NOTE | 2019-07-14 10:18 | DI.RAD_ITS ---
EXAM: XR SHOULDER LT COMPLETE 2+V INDICATION: Fall, pain. COMPARISON: XR CHEST 2V PA LATERAL from 05/12/2019 TECHNIQUE: 2D digital imaging was performed. FINDINGS: There are degenerative changes seen at the acromioclavicular joint and the glenohumeral joint. No ac nils fracture or dislocation is present. The soft tissues are unremarkable. IMPRESSION: No acute abnormality.
[2019-07-14] MEDS: Normal Saline Flush 10 ML SYR IVP ×3 (10:30→19:31)
[2019-07-14] MEDS: Doxycycline Hyclate 100 MG CAP PO (10:30)
[2019-07-14] MEDS: Acetaminophen 500 MG TAB 1000 MG PO (10:30)
[2019-07-14] MEDS: cefTRIAXone 1 GM/50 ML BAG IVPB (10:31)
--- NOTE | 2019-07-14 10:42 | DI.RAD_ITS ---
EXAM: XR CHEST 2V AP LATERAL CLINICAL HISTORY: Weakness. TECHNIQUE: 2D digital imaging was performed. COMPARISON: XR CHEST 2V PA LATERAL from 05/12/2019 FINDINGS: LUNGS: Clear. No pleural abnormality seen. HEART: Normal. MEDIASTINUM: Normal. OTHER FINDINGS:Normal. BONE:Normal. IMPRESSION: No acute pulmonary findings.
[2019-07-14 10:57] LABS: Bilirubin Negative (Negative); Blood Small (Negative); Clarity Clear (Clear); Glucose Negative (Negative); Ketones Negative (Negative); Leukocyte Esterase Large (Negative); Nitrite Positive (Negative); Specific Gravity 1.025 (1.005-1.025); Urobilinogen 0.2 EU/dL (Up TO 0.2)
[2019-07-14 11:26] LABS: Bacteria Moderate HPF (Negative); C & S Indicated? Yes; Casts Negative LPF (Negative); Crystals Negative HPF (Negative); Epithelial Cells Few HPF (Negative); Mucus Negative (Negative); RBC 0-2 HPF (0-2); WBC >50 HPF (0-5)
--- NOTE | 2019-07-14 13:53 | PDOC.CMIN ---
- If Service Date Differs Date of service: 07/14/19 Time of Service: 13:53 Care Management Initial Assess REASON FOR HOSPITALIZATION:: Transient neurologic deficit, UTI PAST MEDICAL HISTORY/PAST SURGICAL HISTORY:: UTI, Atrial flutter/fib, PSVT, abnormal vaginal bleeding, DM, hypomagnesemia, right hip fracture, urine retention, supra pubic cath PREVIOUS FUNCTIONAL STATUS/SOCIAL/FAMILY SUPPORTS:: Hope lives by herself with her cat, rabbit and pariot (echo). She has a walker and a cane for ambulation. She is independent with ADL's uses [facility] for transportation and recieves supports through [facility], [facility] [facility] aging and moderate needs home and school visitor services. CURRENT FUNCTIONAL STATUS:: Hope, is alert and engaged during assessment she states that she has people that will feed her animals. Hope states she has regular visits with Nathaly from [facility] and that she has lots of friends and supports in the building. Hope receives supports from Julio at [facility] as well as a wellness nurse, they are trying to establish life line for her. ADVANCE DIRECTIVES:: None on file, patient states she does not want one and when she dies she dies Has patient been provided with information about the portal?: Yes Did the patient sign up for the portal?: No CODE STATUS:: Full Code INSURANCE COVERAGE / FINANCIAL ISSUES:: Medicare and Medicaid CURRENT HOME/COMMUNITY SERVICES/EQUIPMENT:: [facility], [facility], [facility], Moderate Needs, [facility] therapy PRIMARY CARE PHYSICIAN:: Raheem Lew NP POTENTIAL DISCHARGE NEEDS:: Follow up with primary care, and specility as directed. PATIENT/FAMILY EDUCATION NEEDS:: Discharge education, limitations, follow-up medications, ask me 3 and self-management. ANTICIPATED BARRIERS TO DISCHARGE:: None identified TRANSPORTATION:: Via [facility] coordinated by CM at time of discharge PLAN:: Hope is being observed anticipate she will be discharged home with no additional services. Hope has community support, including counseling aging and [facility]. CM to continue to provide support ongoing discharge planning and disposition.
--- NOTE | 2019-07-14 14:07 | DI.US_ITS ---
EXAM: US CAROTID CLINICAL HISTORY: TIA TECHNIQUE: Ultrasound performed using standard protocol. COMPARISON: [facility] DES[facility] ENGINEER ULTRASOUND from 04/26/2015 FINDINGS: On the right, no significant calcific plaque is present. No hemodynamically significant velocity berna vations are present. The right vertebral artery is antegrade. On the left, there is calcific plaque seen in the carotid bulb. No hemodynamically significant veloc ity elevations are present. Left vertebral artery is antegrade. IMPRESSION: No evidence of hemodynamically significant cervical carotid artery stenosis.
[2019-07-14 14:36] LABS: TSH 0.94 uIU/mL (0.36-3.74)
[2019-07-14 14:46] LABS: Troponin I < 0.05 ng/Ml (<0.06)
[2019-07-14] MEDS: LORazepam 2 MG/ML VIAL 0.5 MG IVP (15:35)
--- NOTE | 2019-07-14 16:12 | DI.MRI_ITS ---
EXAM: MR ANGIO BRAIN WO CLINICAL HISTORY: TIA. TECHNIQUE: Multiplanar multisequence MRI was performed. COMPARISON: No exams were available for comparison FINDINGS: MR angiography of the region [place] of [place] was performed according to the usual protocol. Interna l carotid, anterior middle and posterior cerebral, basilar, and vertebral arteries are within normal limits bilaterally. No evidence of aneurysm, dissection, or stenosis. IMPRESSION: Negative MRA [place] of [place] region
--- NOTE | 2019-07-14 16:14 | NCONE_ITS ---
Date of service: 07/14/19 Time of Service: 16:14 History of Present Illness History of Present Illness Chief Complaint: TIA Narrative: Handedness: right. Consults Requesting physician: Amarilis May [facility] Social History Smoking/Tobacco Use Status: Former Tobacco Use Alcohol Intake: never Drug use: Never Substance use type: does not use Do you feel safe at home: Yes Do you feel safe in your relationship?: Yes Visit Medication and Allergies Active Medications Generic Name Dose Route Start Last Admin Trade Name Freq PRN Reason Stop Dose Admin Acetaminophen 0 mg 07/14/19 11:23 Tylenol PO Q4H PRN PRN Al Hydrox/Mg Hydrox/Simethicone 30 ml 07/14/19 11:23 Mylanta Liquid PO Q2H PRN PRN Aspirin 81 mg 07/15/19 08:30 Ecotrin PO DAILY DANNI Aspirin 325 mg 07/14/19 17:00 Ecotrin PO 07/14/19 17:01 NOW ONE Dimethicone/Zinc Oxide 0 gm 07/14/19 11:23 Carol Protect Cream TP PRN PRN Docusate Sodium 100 mg 07/14/19 11:23 Colace PO TID PRN PRN Ceftriaxone Sodium/Dextrose 1 gm in 50 mls @ 100 mls/hr 07/15/19 10:00 Rocephin IVPB Q24H DANNI IV Miscellaneous Supplies 1 each 07/14/19 09:30 IV DIRECTED DANNI Magnesium Hydroxide 30 ml 07/14/19 11:23 Milk Of Magnesia PO DAILY PRN PRN Sodium Chloride 0 ml 07/14/19 09:28 07/14/19 10:30 Saline Flush 10 Ml Syringe IVP 10 ml PRN PRN Administration Allergies trazodone Adverse Reaction (Intermediate, Verified 07/14/19 09:59) NIGHTMARES Results Last Vital Signs Temp 36.8 C 07/14/19 12:57 Pulse 114 H 07/14/19 12:57 Resp 18 07/14/19 12:57 BP 157/90 H 07/14/19 12:57 Pulse Ox 96 07/14/19 12:57 Labs Result diagrams: 07/14/19 09:53 07/14/19 09:53 Labs: Laboratory Results - last 24 hr 07/14/19 07/14/19 07/14/19 09:53 09:53 09:53 WBC 8.17 RBC 4.64 Hgb 12.1 Hct 39.3 MCV 84.7 MCH 26.1 L MCHC 30.8 L RDW 16.4 H Plt Count 431 H MPV 10.4 Immature Gran % 1.0 Neutrophils % 65.3 Lymphocytes % 25.3 Monocytes % 7.6 Eosinophils % 0.6 Basophils % 0.2 Absolute Neutrophils 5.33 Absolute Lymphocytes 2.07 Absolute Monocytes 0.62 Absolute Eosinophils 0.05 Absolute Basophils 0.02 Sodium 142 Potassium 4.3 Chloride 103 Carbon Dioxide 26.4 Anion Gap 12.6 H BUN 23 H Creatinine 1.36 H Estimated GFR/1.73 m2 38.33 Glucose 86 Calcium 8.7 Total Bilirubin 0.3 AST 22 ALT 20 Alkaline Phosphatase 58 Troponin I < 0.05 Total Protein 7.9 Albumin 3.5 TSH 0.94 Free T4 1.20 Urine Color Urine Clarity Urine pH Ur Specific [place] Urine Protein Urine Ketones Urine Blood Urine Nitrite Urine Bilirubin Urine Urobilinogen Ur Leukocyte Esterase Urine RBC Urine WBC Ur Epithelial Cells Urine Crystals Urine Bacteria Urine Casts Urine Mucus Ur Culture Indicated? Urine Glucose 07/14/19 10:47 WBC RBC Hgb Hct MCV MCH MCHC RDW Plt Count MPV Immature Gran % Neutrophils % Lymphocytes % Monocytes % Eosinophils % Basophils % Absolute Neutrophils Absolute Lymphocytes Absolute Monocytes Absolute Eosinophils Absolute Basophils Sodium Potassium Chloride Carbon Dioxide Anion Gap BUN Creatinine Estimated GFR/1.73 m2 Glucose Calcium Total Bilirubin AST ALT Alkaline Phosphatase Troponin I Total Protein Albumin TSH Free T4 Urine Color Yellow Urine Clarity Clear Urine pH 6.0 Ur Specific [place] 1.025 Urine Protein 30 H Urine Ketones Negative Urine Blood Small H Urine Nitrite Positive H Urine Bilirubin Negative Urine Urobilinogen 0.2 Ur Leukocyte Esterase Large H Urine RBC 0-2 Urine WBC >50 H Ur Epithelial Cells Few Urine Crystals Negative Urine Bacteria Moderate Urine Casts Negative Urine Mucus Negative Ur Culture Indicated? Yes Urine Glucose Negative
--- NOTE | 2019-07-14 16:25 | DI.VRAD_ITS ---
PROCEDURE INFORMATION: Exam: MR Angiogram Head Without Contrast, Arteries Exam date and time: 07/14/2019 4:15 PM Age: 69 years old Clinical indication: Other: TIA TECHNIQUE: Imaging protocol: MR angiogram head without contrast. Exam focused on the arteries. 3D rendering: MIP and/or 3D reconstructed images were created by the technologist. COMPARISON: MRA HEAD WO 05/19/2017 4:04 PM FINDINGS: Right internal carotid artery: Unremarkable. Intracranial segment is patent with no significant stenosis. No aneurysm. Right anterior cerebral artery: Unremarkable. No occlusion or significant stenosis. No aneurysm. Right middle cerebral artery: Unremarkable. No occlusion or significant stenosis. No aneurysm. Right posterior cerebral artery: Unremarkable. No occlusion or significant stenosis. No aneurysm. Right vertebral artery: Unremarkable. No occlusion or significant stenosis. No aneurysm. Left internal carotid artery: Unremarkable. Intracranial segment is patent with no significant stenosis. No aneurysm. Left anterior cerebral artery: Unremarkable. No occlusion or significant stenosis. No aneurysm. Left middle cerebral artery: Unremarkable. No occlusion or significant stenosis. No aneurysm. Left posterior cerebral artery: Unremarkable. No occlusion or significant stenosis. No aneurysm. Left vertebral artery: Unremarkable. No occlusion or significant stenosis. No aneurysm. Basilar artery: Unremarkable. No occlusion or significant stenosis. No aneurysm. IMPRESSION: No acute abnormality. Dictated and Authenticated by: Pillo Coronado MD. Ordering:JODY Olmos MD
--- NOTE | 2019-07-14 16:37 | DI.MRI_ITS ---
EXAM: MR BRAIN WO CLINICAL HISTORY: TIA. TECHNIQUE: Multiplanar multisequence MRI was performed. COMPARISON: No exams were available for comparison FINDINGS: MR examination of brain was performed according to the usual protocol. There is moderate generalized cerebral atrophy. There are multiple areas of abnormal signal in periventricular white matter bilat erally in a pattern consistent with microvascular ischemic change. No other significant signal abnor mality identified in the brain. Diffusion weighted imaging shows no evidence of infarction. Suscept ibility weighted imaging shows no evidence intracranial hemorrhage. The orbital and temporal bone structures appear intact. Pituitary is unremarkable as visualized. IMPRESSION: Cerebral atrophy and diffuse mitral grow vascular ischemic changes. No acute findings.
--- NOTE | 2019-07-14 16:48 | DI.VRAD_ITS ---
PROCEDURE INFORMATION: Exam: MR Head Without Contrast Exam date and time: 07/14/2019 4:30 PM Age: 69 years old Clinical indication: Other: TIA TECHNIQUE: Imaging protocol: MR of the head without contrast. 3D rendering: MIP and/or 3D reconstructed images were created by the technologist. COMPARISON: MRI - BRAIN WO CONTRAST 05/19/2017 4:03 PM FINDINGS: Brain: No acute infarct. Minimal chronic microvascular ischemic changes. Ventricles: Normal. No ventriculomegaly. Bones/joints: Unremarkable. Soft tissues: Unremarkable. Sinuses: Normal as visualized. No acute sinusitis. Mastoid air cells: Normal as visualized. No mastoid effusion. Orbits: Unremarkable. Other findings: No hemorrhage. IMPRESSION: No acute intracranial abnormality. Mild chronic microvascular ischemic changes. Dictated and Authenticated by: Pillo Coronado MD. Ordering:JODY Olmos MD
[2019-07-14] MEDS: Aspirin E.C. 325 MG TABEC PO (16:51)
[2019-07-14] MEDS: Acetaminophen 325 MG TAB PO (17:01)
--- NOTE | 2019-07-14 18:39 | HPE_ITS ---
Date of service: 07/14/19 Time of Service: 18:40 Assessment and Plan Assessment and plan (1) Transient neurologic deficit: Status: Acute Assessment and plan: MRI/MRA negative for acute CVA. My impression is that this was due to toxic metabolic encephalopathy due to UTI - however, will await a formal neurology opinion. Will monitor on tele, monitor neuro checks. For echocardiogram/US carotid. Continue xarelto; likely ok to d/c asa, but will await results of the ultrasound of the carotids.. (2) UTI (urinary tract infection): Status: Acute Assessment and plan: present on admission, associated with indwelling suprapubic catheter. Consult urology for exchange of catheter. Continue empiric ceftriaxone. Await urine C&S. (3) Atrial fibrillation and flutter: Status: Acute Assessment and plan: Mildly rapid since arrival - likely, in setting of missed am meds. Will monitor on tele. As we are also trying to pursue permissive hypertension, we will slowly reintroduce AV tasia agents. Has prn IV lopressor for tonight. R/o ACS. (4) Poorly controlled type 2 diabetes mellitus: Status: Acute Assessment and plan: Continue home regimen; add moderate sliding scale. Check A1C. (5) Left shoulder pain: Status: Acute Assessment and plan: No evidence of fx on XR. If pain persists, consider ortho consult. PT consulted. (6) Fungal dermatitis: Status: Acute Assessment and plan: Rx'ed clotrimazole/vitamin A/zinc ointment. May do better with nystatin powder - will monitor. (7) Urinary retention: Status: Acute Assessment and plan: Urology consulted for exchange of suprapubic catheter. (8) DVT prophylaxis: Status: Acute Assessment and plan: On therapeutic xarelto (9) Discharge planning issues: Status: Acute Assessment and plan: Full code May be able to discharge home tomorrow if clinically better. History of Present Illness History of Present Illness Chief Complaint: I couldn't get out of bed Narrative: Ms Busby is a 69 year old female with PMHx of Afib on xarelto, IDDM2, indwelling suprapubic catheter for urinary retention, mention of CHF in the medical record, but unknown EF, who woke up this morning with a sensation of numbness in tingling in her LUE, LLE, and the left side of her face/eye. She states that her speech has been slurred as well. Denies dysphagia. She could move both the LUE and LLE, but they did not quite move in the way she expected. She also said that they were restless. The symptoms lasted for about an hour. They resolved by the time the patient arrived to [facility] ED by EMS. In the ED, she had a negative CT of the head, which was negative. She was found to have a UTI and was initiated on ceftriaxone. We were asked to admit the patient for further care. Review of Systems Narrative: 12 systems reviewed. Pertinent positives and negatives are as per HPI. Additionally, the patient endorses palpitations at home. She states that she fell when she was being helped up by ambulance, hitting her left side of the back on the floor. Her left shoulder hurts to move. Her suprapubic catheter was last changed on 06/17/2019. [facility] Social History Smoking/Tobacco Use Status: Former Tobacco Use Alcohol Intake: never Drug use: Never Substance use type: does not use Do you feel safe at home: Yes Do you feel safe in your relationship?: Yes Meds Home Medications and Allergies Home Medications Medication Instructions Recorded Confirmed Type omeprazole 20 mg PO DAILY 09/22/12 07/14/19 History Xarelto 20 mg PO DAILY 04/20/15 07/14/19 History metformin [Glucophage] 1 tab PO BID 11/24/16 07/14/19 History metoprolol succinate [Toprol XL] 100 mg PO BID 05/18/17 07/14/19 History magnesium oxide [MagOx] 400 mg PO DAILY #30 tab 05/19/17 07/14/19 Rx Depend Underwear For Women S-M #100 ea 10/19/17 05/23/19 Rx atorvastatin 20 mg PO DAILY 05/16/18 07/14/19 History insulin aspart U-100 [Novolog 12 units SUB-Q BID 05/16/18 07/14/19 History PenFill U-100 Insulin] insulin degludec [Tresiba 45 unit SUBCUT DAILY 05/12/19 07/14/19 History FlexTouch U-200] lisinopril 10 mg PO DAILY 05/12/19 07/14/19 History diltiazem HCl 180 mg PO DAILY 07/14/19 07/14/19 History Allergies Allergy/AdvReac Type Severity Reaction Status Date / Time trazodone AdvReac Intermediate NIGHTMARES Verified 07/14/19 09:59 Exam Narrative Exam Narrative: General: Obese female who is uncomfortable moving her LUE, otherwise, providing her story fluently Neurological: A&Ox3, CN II - XII intact, PERRLA, sensory intact, 1+ DTRs B, no clonus, plantar response flexion B, no pronator drift, finger to nose intact B Psychiatric: anxious Skin: visible skin intact, including B feet, with the exception of what appears to be fungal dermatitis around suprapubic catheter HEENT: Atraumatic, normocephalic, EOMI, MMM, clear oropharynx, so submandibular or cervical lymphadenopathy; hirsutism, + mild goiter, no JVD Cardiovascular: irregularly irregular rhythm, no m/r/g Lungs: CTAB Gastrointestinal: abdomen is soft, nontender, nondistended Genitourinary: suprapubic catheter in place Extremities: no e/c/c BLE's, 1+ pedal pulses B, no skin lesions Results Imaging Additional studies: CT head without contrast: No acute intracranial process. XR L shoulder: No acute abnormality. CXR: No acute pulmonary findings. US carotid: No evidence of hemodynamically significant cervical carotid artery stenosis. MRI brain: No acute intracranial abnormality. Mild chronic microvascular ischemic changes. MRA brain: No acute abnormality. EKG: HR 100, Afib,no acute ischemia Labs Result diagrams: 07/14/19 09:53 07/14/19 09:53 Labs: Laboratory Results - last 24 hr 07/14/19 07/14/19 07/14/19 09:53 09:53 09:53 WBC 8.17 RBC 4.64 Hgb 12.1 Hct 39.3 MCV 84.7 MCH 26.1 L MCHC 30.8 L RDW 16.4 H Plt Count 431 H MPV 10.4 Immature Gran % 1.0 Neutrophils % 65.3 Lymphocytes % 25.3 Monocytes % 7.6 Eosinophils % 0.6 Basophils % 0.2 Absolute Neutrophils 5.33 Absolute Lymphocytes 2.07 Absolute Monocytes 0.62 Absolute Eosinophils 0.05 Absolute Basophils 0.02 Sodium 142 Potassium 4.3 Chloride 103 Carbon Dioxide 26.4 Anion Gap 12.6 H BUN 23 H Creatinine 1.36 H Estimated GFR/1.73 m2 38.33 Glucose 86 Calcium 8.7 Total Bilirubin 0.3 AST 22 ALT 20 Alkaline Phosphatase 58 Troponin I < 0.05 Total Protein 7.9 Albumin 3.5 TSH 0.94 Free T4 1.20 Urine Color Urine Clarity Urine pH Ur Specific [place] Urine Protein Urine Ketones Urine Blood Urine Nitrite Urine Bilirubin Urine Urobilinogen Ur Leukocyte Esterase Urine RBC Urine WBC Ur Epithelial Cells Urine Crystals Urine Bacteria Urine Casts Urine Mucus Ur Culture Indicated? Urine Glucose 07/14/19 10:47 WBC RBC Hgb Hct MCV MCH MCHC RDW Plt Count MPV Immature Gran % Neutrophils % Lymphocytes % Monocytes % Eosinophils % Basophils % Absolute Neutrophils Absolute Lymphocytes Absolute Monocytes Absolute Eosinophils Absolute Basophils Sodium Potassium Chloride Carbon Dioxide Anion Gap BUN Creatinine Estimated GFR/1.73 m2 Glucose Calcium Total Bilirubin AST ALT Alkaline Phosphatase Troponin I Total Protein Albumin TSH Free T4 Urine Color Yellow Urine Clarity Clear Urine pH 6.0 Ur Specific [place] 1.025 Urine Protein 30 H Urine Ketones Negative Urine Blood Small H Urine Nitrite Positive H Urine Bilirubin Negative Urine Urobilinogen 0.2 Ur Leukocyte Esterase Large H Urine RBC 0-2 Urine WBC >50 H Ur Epithelial Cells Few Urine Crystals Negative Urine Bacteria Moderate Urine Casts Negative Urine Mucus Negative Ur Culture Indicated? Yes Urine Glucose Negative Last Vital Signs Temp 36.8 C 07/14/19 12:57 Pulse 114 H 07/14/19 16:45 Resp 18 07/14/19 12:57 BP 157/90 H 07/14/19 12:57 Pulse Ox 96 07/14/19 12:57
[2019-07-14 18:51] LABS: Troponin I < 0.05 ng/Ml (<0.06)
[2019-07-14] MEDS: dilTIAZem 30 MG TAB PO (18:51)
[2019-07-14] MEDS: Metoprolol 5 MG/5 ML VIAL 2.5 MG IVP (19:30)
[2019-07-14] MEDS: Atorvastatin 20 MG TAB PO (20:17)
[2019-07-14] MEDS: dilTIAZem 60 MG TAB PO (20:53)
[2019-07-14] MEDS: Insulin Aspart 300 UNITS/3 ML PEN SC (22:03)
[2019-07-14 22:27] LABS: Troponin I < 0.05 ng/Ml (<0.06)
[2019-07-15] VITALS (90 sets, daily range): BP systolic 103–177; BP diastolic 53–102; PULSE 74–150; RESP 8–28; TEMP 36.2–36.8; O2SAT 91–98
[2019-07-15] MEDS: Acetaminophen 325 MG TAB PO ×3 (00:47→22:22)
[2019-07-15] MEDS: Normal Saline Flush 10 ML SYR IVP ×3 (04:48→15:19)
[2019-07-15] MEDS: Metoprolol 5 MG/5 ML VIAL 2.5 MG IVP ×2 (04:48→08:34)
[2019-07-15 07:39] LABS: Abs Immature Grans 0.04 k/cumm (0.0-0.09); Absolute Eosinophil Count 0.03 k/cumm (0.0-0.7); Absolute Lymphocyte Count 1.22 k/cumm (1.2-3.4); Absolute Monocyte Count 0.93 k/cumm (0.11-0.7); Absolute Neutrophil Count 10.51 k/cumm (1.2-6.7); Basophils % 0.2; Eosinophils % 0.2; HCT 38.5 % (36.0-46.0); HGB 12.2 g/dL (12.0-15.5); Immature Grans % 0.3 %; Lymphocytes % 9.6; Mean Corp. HGB Concentration 31.7 g/dL (32.0-36.0); Mean Corpuscular Hemoglobin 26.3 pg (27.0-33.0); Mean Platelet Volume 10.9 fL (8.0-11.0); Monocytes % 7.3; Neutrophils % 82.4; Platelet Count 420 x1000/uL (130-400); RBC 4.64 m/cumm (4.00-5.20); RBC Distribution Width 16.4 % (11.7-14.6); White Blood Cell Count 12.75 k/cumm (4.4-10.8)
[2019-07-15 07:42] LABS: Absolute Basophil Count 0.03 k/cumm (0.0-0.2)
[2019-07-15 07:46] LABS: Anion Gap 13.9 mmol/L (3-11); BUN 19 mg/dL (7-18); CO2 25.1 mmol/L (21.0-32.0); CREATININE 1.07 mg/dL (0.55-1.02); Chloride 98 mmol/L (98-107); Estimated GFR 50.55 (mL/min/1.73m2); Glucose 234 mg/dL (74-106); Magnesium 0.8 mg/dL (1.8-2.4); Sodium 137 mmol/L (136-145)
[2019-07-15] MEDS: Lidocaine 5% Patch 1 PATCH TP (08:15)
[2019-07-15] MEDS: Insulin Aspart 300 UNITS/3 ML PEN SC ×3 (08:18→17:05)
[2019-07-15] MEDS: Insulin Aspart 300 UNITS/3 ML PEN 12 UNITS SC ×2 (08:19→17:05)
--- NOTE | 2019-07-15 08:47 | NT_ITS ---
Date of service: 07/15/19 Time of Service: 08:20 Occupational Therapy Notes 07/15/19 OT consult received and pt's chart was reviewed. OT attempted to consult with pt this morning and was put on hold per RN due to rapid A-Fib. Pt was then placed back into her bed. OT and pt discussed pts living situation which she notes that she lives in an apartment building and has a cat, rabbit and parrot named echo. 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 She states that she has a difficult time performing her own laundry. She has a tub/shower and states that she sits when she performs this. She has fair ROM of (B) UE but OT was unable to get an accurate assessment due to pts pain in her chest. Pt states that she feels like she is going to vomit. RN comes into room to administer medication and OT will hold on consult for this morning. Pt is in agreement with this plan. Maribell Hernandez, OTR/L [facility]
--- NOTE | 2019-07-15 09:00 | DI.US_ITS ---
APPROVED REPORT EXAM: Comprehensive 2D, Doppler, and color-flow Echocardiogram Patient Location: In-Patient [facility] Fire Management Officer: Mindi Ahmadi RDCS (AE) Rhythm: afib tachy Indications: TIA, bubble study please Conclusion Left Ventricle : The left ventricle is normal size. The left ventricular systolic function is normal. Mild concentric ventricular hypertrophy. There is normal LV segmental wall motion. Diastolic functi on could not be determined due to atrial fibrillation but there is evidence of elevated filling press ures. LVEF is estimated to be 50-55%. Right Ventricle : The right ventricle is normal size. The right ventricular systolic function appears normal. Atria : Left atrium is mildly dilated. The right atrium size is normal. There is no evidence of PFO/A SD on color Doppler. Bubble study was not performed. Aortic Valve : Aortic valve is trileaflet. The Aortic valve is sclerotic. Mild aortic regurgitation. There is no aortic valvular stenosis. Mitral Valve : Mitral valve leaflets are mildly thickened, but seem to open well. Mild mitral annular calcification. cordal calcifications. Moderate mitral regurgitation. Tricuspid Valve : The tricuspid valve is normal in structure. Mild to moderate tricuspid regurgitatio n. There is no prior echocardiogram available for comparison. Wall motion Left Ventricle The left ventricle is normal size. The left ventricular systolic function is normal. Mild concentric ventricular hypertrophy. There is normal LV segmental wall motion. Diastolic function could not be de termined due to atrial fibrillation but there is evidence of elevated filling pressures. LVEF is torrey mated to be 50-55%. Right Ventricle The right ventricle is normal size. The right ventricular systolic function appears normal. Atria Left atrium is mildly dilated. The right atrium size is normal. There is no evidence of PFO/ASD on co [place] Doppler. Bubble study was not performed. Aortic Valve Aortic valve is trileaflet. The Aortic valve is sclerotic. There is no aortic valvular stenosis. Mild aortic regurgitation. Mitral Valve Mitral valve leaflets are mildly thickened, but seem to open well. Mild mitral annular calcification. cordal calcifications. Moderate mitral regurgitation. Tricuspid Valve The tricuspid valve is normal in structure. Mild to moderate tricuspid regurgitation. Pulmonic Valve Pulmonic valve is not well visualized. Great Vessels The aortic root is normal in size. IVC is normal in size and collapses >50% with inspiration. Estimat ed RVSP is 45-50 mmHg. Pericardium Prominent anterior epicardial fat pad is present. 2D Dimensions IVSd 1.20 cm F: 0.6-1.0 LV EDV A2C 53.7 mL PWd 1.15 cm F: 0.6 - 1.0 LV EDV A4C 60.8 mL LVDd 3.95 cm F: 3.8 - 5.2 LA Volume Index Biplane 37.3 mL/m2 LVDs 3.00 cm F: 2.2 - 3.5 LA Area A4C 23.84 cm2 Aortic Root 3.35 cm F: 2.7 - 3.3 LA Area A2C 22.32 cm2 RVID Base (AP4) 3.46 cm (M/F) 2.5-4.1 EF AP4 65.5 % RA Area A4C 18.05 cm2 EF AP2 41.2 % LVOT 1.75 cm (M/F) 1.5-2.5 EF BP 51.3 % LVEF (Teich) 47.4 % IVC 1.57 cm LVEF (Parry's) 51.26 % F: 54 - 74 LV Volume 43.70 mL F: 46 - 106 LV Volume Index 21.52 mL/m2 F: 29 - 61 FS 23.35 % LV Diastology MV E' medial 0.090 (>0.07 m/s) PV S/D Ratio 0.87 LV E/e MED 16.00 (<14) TR Peak Velocity 3.45 m/s Pulm Vein s 0.46 m/s Pulm Vein d 0.52 m/s LA vol/ BSA A2C s A-L 34.9 mL/m2 LA vol/ BSA A4C s A-L 38.9 mL/m2 Aortic Valve LVOT Area 2.48 cm2 AoV Area Vmax 1.48 cm2 LVOT Vmax 0.89 m/s AoV Area/ BSA (Vmax) 0.73 cm2/m2 LVOT Mean Alfredo. 0.68 m/s GREGORIO Mean Alfredo. 1.48 cm2 LVOT Peak Gr. 3.2 mmHg GREGORIO Mean Alfredo. Index 0.73 cm2/m2 LVOT Mean Gr. 2.0 mmHg LVOT VTI 0.159 m AoV Vmax 1.49 (0.5-1.3 m/s) AoV Mean Alfredo. 1.14 m/s AoV Peak Grad 8.9 mmHg LVOT SV 39.29 mL AoV Mean Grad 5.6 (<5 mmHg) AoV VTI 0.245 (0.18-0.25 m) AoV Area VTI 1.60 (2.5-4.5 cm2) AoV Area/ BSA (VTI) 0.79 cm/m2 Mitral Valve MV E Max Alfredo. 1.44 (0.4-1.3 m/s) MVA VTI 3.56 (4.0-6.0 cm2) MV Regurg Volume 42.91 mL MV RF 52.00 % Tricuspid Valve TR P. Gradient 47.5 mmHg TV Regurg Vmax 3.45 m/s RAP Estimate 3.00 mmHg RVSP 50.5 mmHg
--- NOTE | 2019-07-15 09:01 | W.NEUROCONSU ---
Date of service: 07/15/19 Time of Service: 09:01 Assessment and Plan Assessment and plan (1) TIA (transient ischemic attack): Status: Acute (2) Atrial flutter: Status: Acute (3) UTI (urinary tract infection): Status: Acute (4) Hypomagnesemia: Status: Acute (5) Poorly controlled diabetes mellitus: Status: Acute Assessment and plan: Ms. Busby is a 69 year-old, left-handed woman with complicated PMH including atrial fibrillation on Xarelto as well as hypertension, hyperlipidemia, and poorly controlled diabetes who was admitted with apparent transient focal neurological deficits in the setting of a UTI and hypomagnesmia. She has no prior clinical or radiographical history of stroke. I don't think that we can reliably blame her symptoms on either of her metabolic conditions given lack of prior focal injury. Her symptoms, while not entirely clear, have all been consistently focal in their description. Thus, I think we have to assume that this is a TIA and treat her so. Her TTE is pending along with updated A1c/LDL. I don't have any reason to think this is a Xarelto failure and she reports good medication adherence. Thus, I recommend adding 81mg daily aspirin for secondary stroke prevention. ADRs were discussed including further risk of bleeding. Her statin should be titrated to a goal LDL <70. Goal A1c <7.0. Ok to re-start BP/rate control meds. She should follow-up in the neurology clinic in 4-6 weeks. Please call with any questions or concerns. History of Present Illness History of Present Illness Chief Complaint: TIA Narrative: Handedness: LEFT (son and grandson also LH) HPI: Ms. Busby is a 69 year-old with a past medical history of hypertension, hyperlipidemia, poorly-controlled DM, atrial fibrillation on Xarelto 20mg daily, reported CHF, urinary retention with a suprapubic catheter, and cataracts. She presented to the [facility] ER by ambulance on 07/14/19 after waking up with various transient symptoms. The exact symptoms are unclear and different variations have been told. To the ER, she reported left sided weakness and left eye vision problems. To the hospitalist, she reported L F/A/L numbness x1 hour. Today, she tells me she had L leg weakness and prickling below the knee [id number], with L eye vision loss x5min, L face prickling [id number], and slurred speech lasting 5min. She denies any arm symptoms today. In the ER, she had a CTH which was unremarkable. Her BP was at her baseline of 145/133. She was in afib. Labs were significant for Cr 1.36 (baseline) and magnesium 0.8 (very low). She was also found to have a UTI. She was started on aspirin 81mg daily along with Xarelto and admitted for further work-up. She is already on atorvastatin. She has been on Xarleto for 5+ years. She has not been on any other anticoagulants. She lives alone at the [facility]. She does not drive. Work-up: -CTH: no acute findings. I reviewed these images personally. -MRI brain w/o : no acute findings, mild atrophy and chronic white matter changes. I reviewed these images personally. -MRA head w/o: unremarkable. I reviewed these images personally. -CUS: no stenosis. -Labs (2017): LDL 68 and A1c 7.7. Consults Requesting physician: Amarilis May Review of Systems All systems reviewed & are unremarkable except as noted in HPI and below PFSH Medical History Atrial fibrillation Cataracts, bilateral CHF (congestive heart failure) Diabetes Hyperlipidemia Hypertension (Chronic) PSVT (paroxysmal supraventricular tachycardia) (Acute) S/P right hip fracture (Acute) Urinary retention (Acute 03/31/16) Surgical History History of suprapubic catheter (Acute) Status post right hip replacement (Acute) Family History Other Diabetes Heart disease Hyperlipidemia Hypertension Stroke Social History Smoking/Tobacco Use Status: Former Tobacco Use Alcohol Intake: never Drug use: Never Substance use type: does not use Household members: none Do you feel safe at home: Yes Do you feel safe in your relationship?: Yes Additional Social history: Lives alone. [address] Does not drive. Visit Medication and Allergies Active Medications Generic Name Dose Route Start Last Admin Trade Name Emily PRN Reason Stop Dose Admin Acetaminophen 0 mg 07/14/19 11:23 07/15/19 04:38 Tylenol PO 650 mg Q4H PRN PRN Administration Al Hydrox/Mg Hydrox/Simethicone 30 ml 07/14/19 11:23 Mylanta Liquid PO Q2H PRN PRN Aspirin 81 mg 07/15/19 08:30 Ecotrin PO DAILY [facility] Atorvastatin Calcium 20 mg 07/14/19 20:00 07/14/19 20:17 Lipitor PO 20 mg QPM [facility] Administration Clotrimazole 60 gm/ Zinc Oxide 0 gm 07/14/19 20:00 07/14/19 20:55 60 gm/ Vitamin A/Vitamin D 60 TP 1 applicatio gm TID [facility] Administration Dextrose 0 gm 07/14/19 18:39 Insta-Glucose PO DIRECTED PRN Dextrose/Water 0 gm 07/14/19 18:39 IVP DIRECTED PRN Diltiazem HCl 180 mg 07/15/19 08:30 Cardizem Cd PO DAILY [facility] Dimethicone/Zinc Oxide 0 gm 07/14/19 11:23 Carol Protect Cream TP PRN PRN Docusate Sodium 100 mg 07/14/19 11:23 Colace PO TID PRN PRN Ceftriaxone Sodium/Dextrose 1 gm in 50 mls @ 100 mls/hr 07/15/19 10:00 Rocephin IVPB Q24H [facility] IV Miscellaneous Supplies 1 each 07/14/19 09:30 IV DIRECTED [facility] Insulin Aspart 0 units 07/14/19 22:00 07/15/19 08:18 Novolog Flexpen SC 6 units AC & HS [facility] Administration Protocol Insulin Aspart 12 units 07/15/19 08:00 07/15/19 08:19 Novolog Flexpen SC 12 units BID INSULIN [facility] Administration Lidocaine 1 patch 07/15/19 08:30 07/15/19 08:15 Lidoderm 5% Patch TP 1 patch DAILY [facility] Administration Magnesium Hydroxide 30 ml 07/14/19 11:23 Milk Of Magnesia PO DAILY PRN PRN Magnesium Oxide 400 mg 07/15/19 08:30 Mag-Ox 400 PO DAILY [facility] Metoprolol Succinate 100 mg 07/15/19 08:30 Toprol Xl PO BID [facility] Metoprolol Tartrate 2.5 mg 07/14/19 18:50 07/15/19 04:48 Lopressor Injection IVP 2.5 mg Q6H PRN PRN Administration Miscellaneous 1 each 07/14/19 20:00 07/14/19 20:18 Remove Patch TP Not Given QPM DANNI [Tresiba Flextouch U 45 unit 07/15/19 08:30 -200] Patient Own SC Medication DAILY DANNI Omeprazole 20 mg 07/15/19 08:30 Prilosec PO DAILY [facility] Rivaroxaban 20 mg 07/15/19 08:30 Xarelto PO DAILY [facility]AN[facility] Sodium Chloride 0 ml 07/14/19 09:28 07/15/19 08:38 Saline Flush 10 Ml Syringe IVP 20 ml PRN PRN Administration Allergies trazodone Adverse Reaction (Intermediate, Verified 07/14/19 09:59) NIGHTMARES Exam Narrative Exam Narrative: Physical Exam: Gen: Patient of apparent stated age, NAD Head and face: no facial or cranial abnormalities Neck: Supple, no meningismus, no occipital tenderness CV: irregular Resp: CTA B/L Abd: soft, nontender, nondistended Ext: Compression stockings on up to knees. No clubbing or cyanosis. No bony deformity. Neuro Exam: Language: fluency, naming, repetition, and comprehension intact; Mental Status: AAOx3, current events intact and fund of knowledge somewhat muddied; thought she came to the hospital 2 days ago initially Speech: no dysarthria Cranial nerves: Funduscopy: not performed CN II: visual michel intact CN III, IV, : extraocular movements intact, no nystagmus, pupils symmetric and reactive to light CN V: face sensation intact to LT and PP CN VII: no facial asymmetry noted CN VIII: hearing intact bilaterally CN IX, X: palate rises symmetrically CN XI: trapezius/SCM 5/5 bilaterally CN XII: protrudes tongue symmetrically Sensory: intact to LT, PP (above knee - had compression stockings on), and joint position in all extremities; absent vibration in the toes and reduced below the knees Motor: bulk and tone intact. Fine motor movements reduced bilaterally. No pronator drift. Strength 5/5 throughout including the deltoids, biceps, triceps, wrist extensors, hip flexors, knee flexors, knee extensors, ankle flexors, and ankle extensors. Hampered by left shoulder pain. Reflexes: 2+ at the biceps, triceps, and brachioradialis; absent at the patella and achilles tendons bilaterally; toes neutral bilaterally; Coordination: FTN and HTS intact bilaterally Gait: not performed Results Last Vital Signs Temp 36.3 C L 07/15/19 08:46 Pulse 132 H 07/15/19 08:46 Resp 20 07/15/19 08:46 BP 169/82 H 07/15/19 08:46 Pulse Ox 92 L 07/15/19 08:46 Labs Result diagrams: 07/15/19 07:00 07/15/19 07:00 Labs: Laboratory Results - last 24 hr 07/14/19 07/14/19 07/14/19 09:53 09:53 09:53 WBC 8.17 RBC 4.64 Hgb 12.1 Hct 39.3 MCV 84.7 MCH 26.1 L MCHC 30.8 L RDW 16.4 H Plt Count 431 H MPV 10.4 Immature Gran % 1.0 Neutrophils % 65.3 Lymphocytes % 25.3 Monocytes % 7.6 Eosinophils % 0.6 Basophils % 0.2 Absolute Neutrophils 5.33 Absolute Lymphocytes 2.07 Absolute Monocytes 0.62 Absolute Eosinophils 0.05 Absolute Basophils 0.02 Sodium 142 Potassium 4.3 Chloride 103 Carbon Dioxide 26.4 Anion Gap 12.6 H BUN 23 H Creatinine 1.36 H Estimated GFR/1.73 m2 38.33 Glucose 86 Calcium 8.7 Magnesium Total Bilirubin 0.3 AST 22 ALT 20 Alkaline Phosphatase 58 Troponin I < 0.05 Total Protein 7.9 Albumin 3.5 TSH 0.94 Free T4 1.20 Urine Color Urine Clarity Urine pH Ur Specific [place] Urine Protein Urine Ketones Urine Blood Urine Nitrite Urine Bilirubin Urine Urobilinogen Ur Leukocyte Esterase Urine RBC Urine WBC Ur Epithelial Cells Urine Crystals Urine Bacteria Urine Casts Urine Mucus Ur Culture Indicated? Urine Glucose 07/14/19 07/14/19 07/14/19 10:47 18:30 22:05 WBC RBC Hgb Hct MCV MCH MCHC RDW Plt Count MPV Immature Gran % Neutrophils % Lymphocytes % Monocytes % Eosinophils % Basophils % Absolute Neutrophils Absolute Lymphocytes Absolute Monocytes Absolute Eosinophils Absolute Basophils Sodium Potassium Chloride Carbon Dioxide Anion Gap BUN Creatinine Estimated GFR/1.73 m2 Glucose Calcium Magnesium Total Bilirubin AST ALT Alkaline Phosphatase Troponin I < 0.05 < 0.05 Total Protein Albumin TSH Free T4 Urine Color Yellow Urine Clarity Clear Urine pH 6.0 Ur Specific [place] 1.025 Urine Protein 30 H Urine Ketones Negative Urine Blood Small H Urine Nitrite Positive H Urine Bilirubin Negative Urine Urobilinogen 0.2 Ur Leukocyte Esterase Large H Urine RBC 0-2 Urine WBC >50 H Ur Epithelial Cells Few Urine Crystals Negative Urine Bacteria Moderate Urine Casts Negative Urine Mucus Negative Ur Culture Indicated? Yes Urine Glucose Negative 07/15/19 07/15/19 07:00 07:00 WBC 12.75 H D RBC 4.64 Hgb 12.2 Hct 38.5 MCV 83.0 MCH 26.3 L MCHC 31.7 L RDW 16.4 H Plt Count 420 H MPV 10.9 Immature Gran % 0.3 Neutrophils % 82.4 Lymphocytes % 9.6 Monocytes % 7.3 Eosinophils % 0.2 Basophils % 0.2 Absolute Neutrophils 10.51 H Absolute Lymphocytes 1.22 Absolute Monocytes 0.93 H Absolute Eosinophils 0.03 Absolute Basophils 0.03 Sodium 137 Potassium 4.0 Chloride 98 Carbon Dioxide 25.1 Anion Gap 13.9 H BUN 19 H Creatinine 1.07 H Estimated GFR/1.73 m2 50.55 Glucose 234 H D Calcium 9.0 Magnesium 0.8 L Total Bilirubin AST ALT Alkaline Phosphatase Troponin I Total Protein Albumin TSH Free T4 Urine Color Urine Clarity Urine pH Ur Specific [place] Urine Protein Urine Ketones Urine Blood Urine Nitrite Urine Bilirubin Urine Urobilinogen Ur Leukocyte Esterase Urine RBC Urine WBC Ur Epithelial Cells Urine Crystals Urine Bacteria Urine Casts Urine Mucus Ur Culture Indicated? Urine Glucose
[2019-07-15] MEDS: Aspirin E.C. 81 MG TABEC PO (09:09)
[2019-07-15] MEDS: Rivaroxaban 10 MG TABLET 20 MG PO (09:10)
[2019-07-15] MEDS: Metoprolol CR 100 MG TABCR PO (09:10)
[2019-07-15] MEDS: Magnesium Oxide 400 MG TAB PO (09:10)
[2019-07-15] MEDS: Omeprazole 20 MG CAPCR PO (09:10)
[2019-07-15] MEDS: dilTIAZem CD 180 MG CAPCR PO (09:10)
[2019-07-15 10:46] LABS: Calculated LDL 56 mg/dL; Cholesterol 127 mg/dL (<200); HDL Cholesterol 62 mg/dL (40-60); Triglyceride 47 mg/dL (<150)
[2019-07-15] MEDS: cefTRIAXone 1 GM/50 ML BAG IVPB (10:48)
[2019-07-15 10:51] LABS: Hemoglobin A1C 7.9 % (3.8-5.6)
[2019-07-15] MEDS: Magnesium Chloride 64 MG TABCR 128 MG PO ×2 (10:52→20:28)
[2019-07-15] MEDS: Lisinopril 10 MG TAB PO (10:52)
[2019-07-15] MEDS: MAGNESIUM SULFATE 4 GM/100 ML BAG IVPB (11:38)
[2019-07-15] MEDS: dilTIAZem 30 MG TAB PO (12:25)
--- NOTE | 2019-07-15 13:23 | PDOC.CMPRO ---
- If Service Date Differs Date of service: 07/15/19 Time of Service: 13:23 Care Management Progress Note S/O: Hope was changed to inpatient today, she continues to need abx to treat UTI, she gonzales have her supra pubic cath changed today. She will resume supports through [facility], [facility] and [facility] at time of discharge and coordination of transportation home through [facility] at time of discharge. A: Hope is a 69 year old male Neurological Transient deficit and UTI P:Hope is being observed anticipate she will be discharged home with no additional services. Hope [facility] provide support ongoing discharge planning and disposition.
--- NOTE | 2019-07-15 13:48 | W.NUTCONSULT ---
Date of service: 07/19/19 Time of Service: 15:13
--- NOTE | 2019-07-15 14:45 | UCONE_ITS ---
Date of service: 07/15/19 Time of Service: 13:09 Assessment and Plan Assessment and plan (1) Urinary retention: Status: Acute Assessment and plan: We will cancel this months suprapubic tube change and arrange for a tube change about a month from now. History of Present Illness History of Present Illness Chief Complaint: Urunary retention Narrative: This is a 69-year-old woman who has a history of urinary retention. She was unable to perform intermittent catheterization, so she was treated with placement of an suprapubic tube. She comes into our office monthly to have the tube changed. Her next scheduled tube change would have been in the next week. She was admitted to the hospital with concerns for urinary tract infection. We have been asked to change her catheter while she is hospitalized. [facility] Medical History Atrial fibrillation Cataracts, bilateral CHF (congestive heart failure) Diabetes Hyperlipidemia Social History Smoking/Tobacco Use Status: Former Tobacco Use Alcohol Intake: never Drug use: Never Substance use type: does not use Do you feel safe at home: Yes Do you feel safe in your relationship?: Yes Exam Narrative Exam Narrative: The patient is seen sitting in a recliner at her bedside She does not appear septic or toxic She is awake and alert The urine in her current drainage bag is grossly clear. Results Last Vital Signs Temp 36.6 C 07/15/19 12:00 Pulse 125 H 07/15/19 12:00 Resp 18 07/15/19 12:00 BP 121/61 07/15/19 12:00 Pulse Ox 98 07/15/19 12:00 Labs Result diagrams: 07/15/19 07:00 07/15/19 07:00 Labs: Laboratory Results - last 24 hr 07/14/19 07/14/19 07/14/19 09:53 18:30 22:05 WBC RBC Hgb Hct MCV MCH MCHC RDW Plt Count MPV Immature Gran % Neutrophils % Lymphocytes % Monocytes % Eosinophils % Basophils % Absolute Neutrophils Absolute Lymphocytes Absolute Monocytes Absolute Eosinophils Absolute Basophils Sodium Potassium Chloride Carbon Dioxide Anion Gap BUN Creatinine Estimated GFR/1.73 m2 Glucose Hemoglobin A1c Calcium Magnesium Troponin I < 0.05 < 0.05 < 0.05 Triglycerides Total Cholesterol LDL Cholesterol, Calc HDL Cholesterol TSH 0.94 Free T4 1.20 07/15/19 07/15/19 07/15/19 07:00 07:00 07:00 WBC 12.75 H D RBC 4.64 Hgb 12.2 Hct 38.5 MCV 83.0 MCH 26.3 L MCHC 31.7 L RDW 16.4 H Plt Count 420 H MPV 10.9 Immature Gran % 0.3 Neutrophils % 82.4 Lymphocytes % 9.6 Monocytes % 7.3 Eosinophils % 0.2 Basophils % 0.2 Absolute Neutrophils 10.51 H Absolute Lymphocytes 1.22 Absolute Monocytes 0.93 H Absolute Eosinophils 0.03 Absolute Basophils 0.03 Sodium 137 Potassium 4.0 Chloride 98 Carbon Dioxide 25.1 Anion Gap 13.9 H BUN 19 H Creatinine 1.07 H Estimated GFR/1.73 m2 50.55 Glucose 234 H D Hemoglobin A1c 7.9 H Calcium 9.0 Magnesium 0.8 L Troponin I Triglycerides 47 Total Cholesterol 127 LDL Cholesterol, Calc 56 HDL Cholesterol 62 TSH Free T4 Insert Bladder Catheter Text: The patient's indwelling suprapubic tube was identified. We deflated the balloon and remove the suprapubic tube in its entirety We then prepped the suprapubic tract with Betadine. We instilled 2% Xylocaine jelly into the bladder and passed a new 16 [place] catheter through the suprapubic tract into the bladder. The catheter balloon was inflated with 10 cc of sterile water. Clear urine was seen draining from the end of the catheter. The catheter was then hooked to a new drainage bag. The patient tolerated this procedure well.
--- NOTE | 2019-07-15 15:55 | IN_ITS ---
Date of service: 07/15/19 Time of Service: 14:35 PT Notes Visit Reasons: transient neurologic deficit, uti Physical Therapy Inpatient Initial Evaluation Date: 07/15/2019 Referring Doctor: Amarilis May M.D. PT Orders: PT CONSULT: Limited Ability Precautions: Fall. Standard. Activity as tolerated. Patient Profile/Admitting Diagnosis: Pt is a 69-year-old female who presented to the ER on 07/14/2019 for left-sided weakness and left vision problems. She was admitted to the hospital with diagnoses of TIA, UTI, atrial flutter, and poorly controlled diabetes mellitus. PMHX: Diabetes mellitus Fungal dermatitis Urinary retention Atrial flutter Paroxysmal supraventricular tachycardia Vaginal bleeding Hypomagnesemia Fracture of femoral neck, right Hyperkalemia Social History/Home Situation: Pt lives alone at [address] on the third floor with her parrot, rabbit, and cat. She notes there is a ramp and elevators to enter the apartment. Equipment Owned/DME: rollator, front-wheeled walker, cane Subjective: Pt notes that she had initially called emergency services as she could feel that her heart was ?acting up,? felt weak, and that she needed to get to the ER. She states that on the way out of her apartment she fell onto her back and hit her head. Now experiences back pain on the left side from her shoulder down. Notes that she has only had one fall within the past years. Pt states that she is no longer experiencing numbness and her weakness feels as if it is now equal to the right side. She states that she needs to get better to get home. Reports that she uses a cane when walking outside and a walker when she will be walking longer distances. Objective: General Observation: suprapubic catheter and telemonitor in place. Lidocaine patch on L scapular area. Mental Status: alert and oriented x4 Pain: reports experiencing pain in her left scapula and below Vital Signs: at rest: BP 151/86 mmHg, HR 110 bpm, SpO2 90% ROM: Right Upper Extremity: Shoulder Flexion WFL. Shoulder abduction WFL. Elbow flexion WFL. Wrist flexion WFL. Opening and closing of hand WFL. Left Upper Extremity: Shoulder Flexion WFL. Shoulder abduction WFL. Elbow flexion WFL. Wrist flexion WFL. Opening and closing of hand WFL. Right Lower Extremity: Hip flexion WFL. Hip abduction WFL. Knee flexion WFL. Ankle dorsiflexion WFL. Ankle plantarflexion WFL. Left Lower Extremity: Hip flexion WFL. Hip abduction WFL. Knee flexion WFL. Ankle dorsiflexion WFL. Ankle plantarflexion WFL. Strength: Right Upper Extremity: Shoulder flexors 3-/5. Shoulder abductors 3-/5. Elbow flexors 4+/5. Elbow extensors 4/5. [place] Inspector strong. Left Upper Extremity: Shoulder flexors 3-/5. Shoulder abductors 3-/5. Elbow flexors 4+/5. Elbow extensors 4/5. [place] Inspector strong. Right Lower Extremity: Hip flexors 4+/5. Hip abductors 5/5. Knee flexors 5/5. Knee extensors 4+/5. Ankle dorsiflexors 5/5. Ankle plantarflexors 5/5. Left Lower Extremity: Hip flexors 4+/5. Hip abductors 5/5. Knee flexors 5/5. Knee extensors 4+/5. Ankle dorsiflexors 5/5. Ankle plantarflexors 5/5. Sensation: Intact as to pain and pressure on bilateral lower extremities. Bed Mobility/Transfers: Rolling CGA Supine to sit CGA Sit to supine CGA Sit to stand CGA Stand to sit CGA Bed to chair CGA Chair to bed CGA Gait: Pt was only able tolerate ambulating 25 feet + 5 feet FWB using a front- wheeled walker. Demonstrates decreased tiffany. CGA provided by PT with wheelchair follow by PT student. BP remained within her normal limits, however, HR dropped to 50 bpm and gradually increased to 100 bpm after a standing rest break. Pt denied chest pain, SOB, and dizziness. Exercise was discontinued and the patient transferred back to her chair. Balance: Static Sitting: Normal Dynamic Sitting: Normal Static Standing: Fair Dynamic Standing: Fair Special Tests: Mobility Limitations Standardized Measure [facility] AM-PAC 6 clicks Basic Mobility Inpatient Short Form: Raw Score: 18 CMS Score: 47% deficit Informed Consent/Education: Patient instructed in purpose of PT consult and plan of care. Assessment: Pt is a 69-year-old female who presented to the ER on 07/14/2019 for left-sided weakness and left vision problems. She was admitted to the hospital with diagnoses of TIA, UTI, atrial flutter, and poorly controlled diabetes mellitus. Pt presents to physical therapy on initial evaluation with impairment level findings that limit her ability to safely return home. She would benefit from skilled physical therapy at this time. L shoulder and scapular muscles are in guarding due to recent fall and is contributing to pain. Strength is symmetric on B UE/LE. No focal neurologic deficits seen on evaluation. Patient presents with clinical signs and symptoms consistent with current/admitting diagnoses that have resulted to mobility limitations, gait instability, and generalized weakness, as demonstrated by the following impairment level findings: 1. Decreased strength to B LE and UE major muscle groups 2. Impaired sitting/standing balance 3. Impaired activity tolerance 4. Impaired cardiovascular endurance Impairments are contributing to the following functional limitations: 1. Dependent bed mobility skills 2. Increased dependence with transfers 3. Inability to safely ambulate without assistive device and physical assistance 4. Increase completion time for mobility ADL performance 5. Increased fall risk Patient is assessed as a 26521 moderate complexity based on the following: History: Pt is a 69-year-old female who presented to the ER on 07/14/2019 for left-sided weakness and left vision problems. She was admitted to the hospital with diagnoses of TIA, UTI, atrial flutter, and poorly controlled diabetes mellitus. She presents with impairment level finings. AM-PAC raw score of 18 with 47% deficit. Examination: Demonstrable impairment in strength, balance, and range of motion with underlying impairments and functional limitations as documented above Presentation: Evolving Decision Makin moderate complexity Goals: Goals X1 week 1. Supine-Sit independent 2. Sit-Supine independent 3. Sit-Stand independent 4. Stand-Sit independent 5. Bed-Chair independent 6. Chair-Bed independent 7. Independent gait on level surface with use of least restrictive device for at least 300 feet without report of pain nor dyspnea 8. Independent stair negotiation while holding onto bilateral rails for at least 5 steps without report of pain nor dyspnea 9. Independent with home exercise program 10. Good static and dynamic standing balance/tolerance Plan of Care/Treatment Plan: 1-2x/day, 7 days/week x 1 week. Plan of care has been reviewed with the ORGAN PIPE FINISHER providing the service under Physical Therapy direction. Initiate Physical Therapy intervention for strengthening, bed mobility, transfers, gait, stairs, balance training, use of assistive device. DISCHARGE RECOMMENDATIONS: Discharge to home when medically cleared. Recommend home health physical therapy for continued strengthening and improved cardiovascular endurance. No assistive devices recommendations. TREATMENT CODE/TIME: 33187 x 25 minutes beginning at 14:35 P.M. Thank you very much for this referral. Brianda Hawk, SPT Doctor of Physical Therapy Student [facility] Supervision provided by Sue Dejesus PT, DPT, CLT [facility] [place], [place]
--- NOTE | 2019-07-15 16:01 | W.PM.PROGNOT ---
Date of Service Date of service: 07/15/19 Time of Service: 16:01 Assessment and Plan Assessment and plan (1) Atrial fibrillation and flutter: Status: Acute Assessment and plan: Not rate controlled - rapid. Transfer to ICU for cardizem gtt, increase dose of beta blockers. Treat underlying infection and hydrate gently. (2) Transient neurologic deficit: Status: Acute Assessment and plan: Likely due to a TIA, per neurology. Continue asa and anticoagulation. Awaiting results of fasting lipid panel and A1C. (3) UTI (urinary tract infection): Status: Acute Assessment and plan: present on admission, associated with indwelling suprapubic catheter. Polymicrobial. WBC went up since yesterday, however, so I feel I have to change coverage - change to levofloxacin. S/p suprapubic catheter exchange today. (4) Poorly controlled type 2 diabetes mellitus: Status: Acute Assessment and plan: Await A1c. Continue current regimen. (5) Left shoulder pain: Status: Acute Assessment and plan: Post-fall. No evidence of fx on XR. Pain is better. PT consulted (6) Fungal dermatitis: Status: Acute Assessment and plan: Rx'ed clotrimazole/vitamin A/zinc ointment. (7) Urinary retention: Status: Acute Assessment and plan: Suprapubic catheter exchanged today (8) Hypomagnesemia: Status: Acute Assessment and plan: Replete both PO and IV. (9) DVT prophylaxis: Status: Acute Assessment and plan: On therapeutic xarelto (10) Discharge planning issues: Status: Acute Assessment and plan: Full code Transfer to ICU. Total Critical Care time 35 minutes. Subjective Subjective Interval history since last seen: Denies dizziness, chest pain, shortness of breath. Had nausea earlier today - and now, she states, all week. Denies abdominal pain, vomiting. HR have been elevated through the night and most of the morning. Afib - up to 150's, despite aggressive AV tasia blockade with oral meds. Being transferred to ICU for better rate control Exam Narrative Exam Narrative: General: Very pleasant elderly female, A&Ox3, sitting comfortably in a chair, no focal neuro deficits HEENT: EOMI, MMM Heart: irregularly irregular rhythm, tachycardic Lungs: CTAB Abdomen: soft, nontender, nondistended Extremities: no e/c/c BLE's Objective Objective Clinical Data: Abnormal lab results 07/15/19 07/15/19 07/15/19 Range/Units 07:00 07:00 07:00 WBC 12.75 H D (4.4-10.8) k/cumm MCH 26.3 L (27.0-33.0) pg MCHC 31.7 L (32.0-36.0) g/dL RDW 16.4 H (11.7-14.6) % Plt Count 420 H (130-400) x1000/uL Absolute Neutrophils 10.51 H (1.2-6.7) k/cumm Absolute Monocytes 0.93 H (0.11-0.7) k/cumm Anion Gap 13.9 H (3-11) mmol/L BUN 19 H (7-18) mg/dL Creatinine 1.07 H (0.55-1.02) mg/dL Glucose 234 H D (74-106) mg/dL Hemoglobin A1c 7.9 H (3.8-5.6) % Magnesium 0.8 L (1.8-2.4) mg/dL Vital Signs Temperature 36.6 C 07/15/19 15:38 Temperature Source Temporal Artery Scan 07/15/19 15:38 Pulse 121 H 07/15/19 15:38 Pulse Rhythm Irregular 07/15/19 08:30 Pulse 108 H 07/14/19 12:20 Respiratory Rate 18 07/15/19 15:38 Respiratory Effort Non-Labored 07/15/19 08:30 Respiratory Depth Normal 07/15/19 08:30 Respiratory Pattern Normal 07/15/19 08:30 Blood Pressure 154/97 H 07/15/19 15:38 Blood Pressure Mean 120 07/14/19 09:36 Blood Pressure Position Supine 07/14/19 09:33 Pulse Oximetry 96 07/15/19 15:38 Oxygen Delivery Method Room Air 07/15/19 15:38 Oxygen Flow Rate 0 07/15/19 15:38 Pain Level 8 07/15/19 15:38 Comment 07/15/19 15:38 Intake & Output 07/14/19 07/15/19 07/15/19 23:59 11:59 23:59 Intake Total 250 / 260 63 / 83.417 20.417 / 83.417 Output Total 850 / 850 1225 / 1225 Balance -600 / -590 -1162 / -1141.583 20.417 / -1141.583 Weight 92.2 kg 92.5 kg Intake: IV 63 / 83.417 20.417 / 83.417 Oral 240 / 240 Output: Urine 850 / 850 1225 / 1225 Other: Urine Color Straw Yellow Light Anna Urine Appearance Clear Clear Comment hodge bag changed Stool Size Small Small Stool Characteristics Soft Soft Brown Laboratory Results WBC 12.75 k/cumm (4.4-10.8) H D 07/15/19 07:00 RBC 4.64 m/cumm (4.00-5.20) 07/15/19 07:00 Hgb 12.2 g/dL (12.0-15.5) 07/15/19 07:00 Hct 38.5 % (36.0-46.0) 07/15/19 07:00 MCV 83.0 fL (80-95) 07/15/19 07:00 MCH 26.3 pg (27.0-33.0) L 07/15/19 07:00 MCHC 31.7 g/dL (32.0-36.0) L 07/15/19 07:00 RDW 16.4 % (11.7-14.6) H 07/15/19 07:00 Plt Count 420 x1000/uL (130-400) H 07/15/19 07:00 MPV 10.9 fL (8.0-11.0) 07/15/19 07:00 Immature Gran % 0.3 % 07/15/19 07:00 Neutrophils % 82.4 07/15/19 07:00 Lymphocytes % 9.6 07/15/19 07:00 Monocytes % 7.3 07/15/19 07:00 Eosinophils % 0.2 07/15/19 07:00 Basophils % 0.2 07/15/19 07:00 Absolute Neutrophils 10.51 k/cumm (1.2-6.7) H 07/15/19 07:00 Absolute Lymphocytes 1.22 k/cumm (1.2-3.4) 07/15/19 07:00 Absolute Monocytes 0.93 k/cumm (0.11-0.7) H 07/15/19 07:00 Absolute Eosinophils 0.03 k/cumm (0.0-0.7) 07/15/19 07:00 Absolute Basophils 0.03 k/cumm (0.0-0.2) 07/15/19 07:00 Sodium 137 mmol/L (136-145) 07/15/19 07:00 Potassium 4.0 mmol/L (3.5-5.1) 07/15/19 07:00 Chloride 98 mmol/L (98-107) 07/15/19 07:00 Carbon Dioxide 25.1 mmol/L (21.0-32.0) 07/15/19 07:00 Anion Gap 13.9 mmol/L (3-11) H 07/15/19 07:00 BUN 19 mg/dL (7-18) H 07/15/19 07:00 Creatinine 1.07 mg/dL (0.55-1.02) H 07/15/19 07:00 Estimated GFR/1.73 m2 50.55 (mL/min/1.73m2) 07/15/19 07:00 Glucose 234 mg/dL (74-106) H D 07/15/19 07:00 Hemoglobin A1c 7.9 % (3.8-5.6) H 07/15/19 07:00 Calcium 9.0 mg/dL (8.5-10.1) 07/15/19 07:00 Magnesium 0.8 mg/dL (1.8-2.4) L 07/15/19 07:00 Total Bilirubin 0.3 mg/dL (0.2-1.0) 07/14/19 09:53 AST 22 U/L (15-37) 07/14/19 09:53 ALT 20 U/L (14-59) 07/14/19 09:53 Alkaline Phosphatase 58 U/L (46-116) 07/14/19 09:53 Troponin I < 0.05 ng/Ml (<0.06) 07/14/19 22:05 Total Protein 7.9 g/dL (6.4-8.2) 07/14/19 09:53 Albumin 3.5 g/dL (3.4-5.0) 07/14/19 09:53 Triglycerides 47 mg/dL (<150) 07/15/19 07:00 Total Cholesterol 127 mg/dL (<200) 07/15/19 07:00 LDL Cholesterol, Calc 56 mg/dL 07/15/19 07:00 HDL Cholesterol 62 mg/dL (40-60) 07/15/19 07:00 TSH 0.94 uIU/mL (0.36-3.74) 07/14/19 09:53 Free T4 1.20 ng/dL (0.76-1.46) 07/14/19 09:53 Urine Color Yellow (Yellow) 07/14/19 10:47 Urine Clarity Clear (Clear) 07/14/19 10:47 Urine pH 6.0 (5-8) 07/14/19 10:47 Ur Specific [place] 1.025 (1.005-1.025) 07/14/19 10:47 Urine Protein 30 mg/dL (Negative) H 07/14/19 10:47 Urine Ketones Negative mg/dL (Negative) 07/14/19 10:47 Urine Blood Small (Negative) H 07/14/19 10:47 Urine Nitrite Positive (Negative) H 07/14/19 10:47 Urine Bilirubin Negative (Negative) 07/14/19 10:47 Urine Urobilinogen 0.2 EU/dL (Up TO 0.2) 07/14/19 10:47 Ur Leukocyte Esterase Large (Negative) H 07/14/19 10:47 Urine RBC 0-2 HPF (0-2) 07/14/19 10:47 Urine WBC >50 HPF (0-5) H 07/14/19 10:47 Ur Epithelial Cells Few HPF (Negative) 07/14/19 10:47 Urine Crystals Negative HPF (Negative) 07/14/19 10:47 Urine Bacteria Moderate HPF (Negative) 07/14/19 10:47 Urine Casts Negative LPF (Negative) 07/14/19 10:47 Urine Mucus Negative (Negative) 07/14/19 10:47 Ur Culture Indicated? Yes 07/14/19 10:47 Urine Glucose Negative mg/dL (Negative) 07/14/19 10:47
--- NOTE | 2019-07-15 17:36 | NUR.NOTE ---
Nursing Note: Report given to Fariba Talbot, [employer] SUPPORT SPECIALIST and then patient transferred into ICU room 221 at 1730
[2019-07-15] MEDS: dilTIAZem 125 MG in Normal Saline 100 ML IV (18:05)
[2019-07-15] MEDS: Atorvastatin 20 MG TAB PO (20:28)
[2019-07-15] MEDS: levoFLOXacin 750 MG/150 ML BAG 100 MG IVPB (20:29)
[2019-07-15] MEDS: Patch Removal 1 EACH TP (21:35)
[2019-07-16] VITALS (123 sets, daily range): BP systolic 101–153; BP diastolic 52–96; PULSE 57–114; RESP 7–29; TEMP 36.2–36.8; O2SAT 87–97
[2019-07-16] MEDS: dilTIAZem 125 MG in Normal Saline 100 ML 15 MG IV (02:28)
[2019-07-16] MEDS: Omeprazole 20 MG CAPCR PO (06:38)
[2019-07-16 07:41] LABS: Anion Gap 8.9 mmol/L (3-11); BUN 22 mg/dL (7-18); CO2 27.1 mmol/L (21.0-32.0); CREATININE 1.24 mg/dL (0.55-1.02); Calcium 8.8 mg/dL (8.5-10.1); Chloride 96 mmol/L (98-107); Estimated GFR 42.64 (mL/min/1.73m2); Glucose 187 mg/dL (74-106); Magnesium 1.9 mg/dL (1.8-2.4); Potassium 3.9 mmol/L (3.5-5.1); Sodium 132 mmol/L (136-145); Vitamin B12 134 pg/mL (193-986)
[2019-07-16] MEDS: Lidocaine 5% Patch 1 PATCH TP (07:59)
[2019-07-16] MEDS: Acetaminophen 325 MG TAB PO ×3 (08:02→19:56)
[2019-07-16] MEDS: Aspirin E.C. 81 MG TABEC PO (08:02)
[2019-07-16] MEDS: Magnesium Chloride 64 MG TABCR 128 MG PO ×2 (08:02→19:57)
[2019-07-16] MEDS: Lisinopril 10 MG TAB PO (08:27)
[2019-07-16] MEDS: Rivaroxaban 10 MG TABLET 20 MG PO (08:27)
[2019-07-16] MEDS: dilTIAZem CD 120 MG CAPCR 240 MG PO (09:35)
[2019-07-16] MEDS: Normal Saline 500 ML IV (10:22)
[2019-07-16] MEDS: Insulin Aspart 300 UNITS/3 ML PEN SC ×5 (11:57→21:13)
--- NOTE | 2019-07-16 12:48 | PHARADMIT ---
Admission Pharmacy Clinical Review transient neurologic deficit, UTI Code Status Full Code Current Weight 92.5 kg Renally Cleared and Narrow Therapeutic Index Meds Crcl ~48.2 mL/min using adjusted body weight -tramadol dosing: max dose entered due to age, renal function, opioid status -levofloxacin dosing was okay when initiated, now boarderline for adjustments. will mention to MD -rivaroxaban dosing also boarderline for adjustments. will mention to MD QTc Value / Action Taken QTc 418 BP Control, Fever BP 144/82 afebrile Electrolytes reviewed Na 132 Cl96 DVT Prophylaxis pt is on rivaroxaban Opiate Usage / Scheduled Bowel Regimen Ordered prn/prn Plt/SCr for Heparin / Enoxaparin plt 420 SCr 1.24 INR for Warfarin n/a H/H stable, WBC/Bands h/h 12.2/38.5 WBC 12.75 Antibiotic appropriateness levofloxacin for UTI Cultures and Sensitivities urine culture growing E.coli and other gram negative rods Surgical ABX d/c within 24 hr n/a DM control / Insulin Dosing BG 187 scheduled and sliding scale aspart; pts own tresiba ordered but not available Heart Failure (Check EF%) (PARUL's, B-Block, Diuretics) diltiazem, lisinopril, metoprolol, IV to PO Switch n/a Home Meds Reviewed atorvastatin and diltiazem may increase the serum concentrations of each other, consider lower doses when used in combination Home Meds Not Ordered tesiba(discontinued as was unavailable), magnesium oxide (has mag chloride ordered), metformin Comments -md to enter order for lantus as pts own tresiba unavailable -watch renal function and for dosing adjustments if needed, MD aware -watch for stop of dilt drip since PO dilt started -watch for abx adjustments as cultures results/sensitivities return
--- NOTE | 2019-07-16 12:51 | PGE_ITS ---
Date of Service Date of service: 07/16/19 Time of Service: 12:51 Assessment and Plan Assessment and plan (1) Atrial fibrillation and flutter: Status: Acute Assessment and plan: Rate is under improved control. She has been weaned off of her IV diltiazem. I have converted her to diltiazem CD 240 mg every morning and Toprol-XL 200 mg in the evening. Continue current anticoagulation with Xarelto and baby aspirin.. (2) Transient neurologic deficit: Status: Acute Assessment and plan: As for her diabetes her A1c isNo further transient neurologic defects. MRA of the brain was negative for occlusive cerebrovascular disease. MRI of the brain demonstrated cerebral atrophy and microvascular changes. Echocardiogram showed normal left ventricular systolic function with an ejection fraction of 55 to 50% with mild concentric LVH. No PFO was seen by color Doppler but a bubble study was not performed. RV function and size was normal. She has moderate mitral regurgitation and MAC as well as tricuspid regurgitation. Lipid profile shows her lipids are well controlled with an LDL under 60 and triglycerides of 47. I will continue current dose of atorvastatin 20 mg nightly. 7.9% which is less than optimal. Currently we have added de-escalate her insulin dosing because of poor oral intake. (3) UTI (urinary tract infection): Status: Acute Assessment and plan: She remains afebrile. She was switched to Levaquin 750 mg daily beginning yesterday. However her white cell count was elevated yesterday but not repeated today. Urine culture taken after her suprapubic catheter exchange is now growing 3 different gram-negative rods 1 of which is an E. coli. Sensitivities are pending. I would recheck her CBC as well as other inflammatory markers including procalcitonin ESR and CRP. If her white count is higher or at least if it is not declining I may need to broaden her antibiotic coverage pending the culture and sensitivity results. Qualifiers: Encounter type: initial encounter Indwelling urinary catheter type: cy stostomy catheter Urinary tract infection type: catheter-associated UTI Qualified Code(s): T83.510A - Infection and inflammatory reaction due to cys tostomy catheter, initial encounter; N39.0 - Urinary tract infection, site not specified (4) Poorly controlled type 2 diabetes mellitus: Status: Acute Assessment and plan: Because of poor oral intake I had to de-escalate her insulin dosing. I put her on carb coverage at a 1-10 ratio and put her on sen sitive sliding scale. However will reorder her long-acting insulin. Apparently she was on Tresiba which is not available so I will put her on Lantus 45 units nightly which would be a one-to-one ratio to her Tresiba. Her A1c is not well controlled at 7.9%. (5) Left shoulder pain: Status: Acute Assessment and plan: Pain is less than optimally controlled. I added tramadol in addition to her Lidoderm patches. Will check x-ray of her thoracic spine as her pain seems to be more centered over the left upper thoracic area. (6) Fungal dermatitis: Status: Acute Assessment and plan: Rx'ed clotrimazole/vitamin A/zinc ointment. (7) Urinary retention: Status: Acute Assessment and plan: Suprapubic catheter exchanged yesterday (8) Hypomagnesemia: Status: Acute Assessment and plan: Replete both PO (9) DVT prophylaxis: Status: Acute Assessment and plan: On therapeutic xarelto (10) Discharge planning issues: Status: Acute Assessment and plan: She will resume supports through [facility], [facility] and [facility] [place] at time of discharge and coordination of transportation home through [facility] at time of discharge. (11) Epigastric abdominal pain: Status: Acute (12) Fracture, lumbar vertebra, compression: Status: Acute Assessment and plan: Patient has L1 and L2 vertebral compression fractures probably due to underlying osteoporosis and complicated by frequent falls. I will start her on calcitonin and calcium with vitamin D while here in the hospital. She should be evaluated with a bone DEXA scan as an outpatient and started on either a bisphosphonate or a parathyroid hormone analog. (13) Multiple rib fractures involving four or more ribs: Status: Acute Assessment and plan: We will treat her vertebral back pain and multiple left-sided rib fractures with narcotic analgesics and Lidoderm patches. We will start her on calcitonin along with vitamin D and calcium carbonate. Subjective Subjective Interval history since last seen: Patient's had poor oral intake this morning. I did resume her IV fluids. She has had nausea just has no appetite. She has some mild epigastric and left upper quadrant tenderness. She is also complaining of increased upper back pain status post recent fall. Will check a x-ray of her thoracic spine. She already has Lidoderm patches applied Ambien and tramadol to her pain regimen. She states she already had a bowel movement this morning. Her atrial fibrillation rate is come under improved control. I will to consolidate her treatment by putting her on long-acting diltiazem CD 180 mg in the morning and Toprol-XL 200 mg each evening. Her atrial fibrillation is anticoagulated chronically with Xarelto we will continue the same. Of note her B12 is low this morning at 134. I will put her on daily shots of B12 for the next week and then start her on oral supplementation. Exam Narrative Exam Narrative: Elderly female who is kyphotic sitting up in her chair has an indwelling suprapubic catheter which was changed during this admission. Lungs are clear to auscultation She has parathoracic tenderness over her left upper back. Heart is irregularly irregular at a controlled rate in the 90s. Abdomen is obese soft with normoactive bowel sounds with some slight tenderness in the epigastrium and left upper quadrant. No guarding or rebound tenderness. Legs without peripheral edema. Objective Objective Clinical Data: Abnormal lab results 07/16/19 Range/Units 06:20 Sodium 132 L (136-145) mmol/L Chloride 96 L (98-107) mmol/L BUN 22 H (7-18) mg/dL Creatinine 1.24 H (0.55-1.02) mg/dL Glucose 187 H (74-106) mg/dL Vitamin B12 134 L (193-986) pg/mL Vital Signs Temperature 36.5 C 07/16/19 08:30 Temperature Source Temporal Artery Scan 07/16/19 08:30 Pulse 98 H 07/16/19 11:00 Pulse Rhythm Irregular 07/15/19 08:30 Pulse 100 H 07/16/19 11:00 Respiratory Rate 15 07/16/19 11:00 Respiratory Effort Non-Labored 07/16/19 08:30 Respiratory Depth Normal 07/16/19 08:30 Respiratory Pattern Normal 07/16/19 08:30 Blood Pressure 144/82 H 07/16/19 11:00 Blood Pressure Mean 98 07/16/19 11:00 Blood Pressure Position Sitting 07/16/19 08:30 Pulse Oximetry 96 07/16/19 10:10 Oxygen Delivery Method Room Air 07/16/19 08:30 Oxygen Flow Rate 0 07/16/19 08:30 Pain Level 10 07/16/19 11:56 Comment 07/15/19 15:38 Intake & Output 07/15/19 07/16/19 07/16/19 23:59 11:59 23:59 Intake Total 506.125 / 671.969 0196.917 / 1227.917 Output Total 650 / 650 Balance 506.125 / -655.875 577.917 / 577.917 Weight 92.5 kg Intake: IV 206.125 / 269.125 637.917 / 637.917 Oral 300 / 300 590 / 590 Output: Urine 650 / 650 Other: Urine Color Yellow Yellow Urine Appearance Clear Clear Comment Draining clear yellow urine Patient has supra pubic catheter--draining clear yellow urine. Stool Occult Blood Negative Stool Size Small Stool Characteristics Soft Formed Laboratory Results WBC 12.75 k/cumm (4.4-10.8) H D 07/15/19 07:00 RBC 4.64 m/cumm (4.00-5.20) 07/15/19 07:00 Hgb 12.2 g/dL (12.0-15.5) 07/15/19 07:00 Hct 38.5 % (36.0-46.0) 07/15/19 07:00 MCV 83.0 fL (80-95) 07/15/19 07:00 MCH 26.3 pg (27.0-33.0) L 07/15/19 07:00 MCHC 31.7 g/dL (32.0-36.0) L 07/15/19 07:00 RDW 16.4 % (11.7-14.6) H 07/15/19 07:00 Plt Count 420 x1000/uL (130-400) H 07/15/19 07:00 MPV 10.9 fL (8.0-11.0) 07/15/19 07:00 Immature Gran % 0.3 % 07/15/19 07:00 Neutrophils % 82.4 07/15/19 07:00 Lymphocytes % 9.6 07/15/19 07:00 Monocytes % 7.3 07/15/19 07:00 Eosinophils % 0.2 07/15/19 07:00 Basophils % 0.2 07/15/19 07:00 Absolute Neutrophils 10.51 k/cumm (1.2-6.7) H 07/15/19 07:00 Absolute Lymphocytes 1.22 k/cumm (1.2-3.4) 07/15/19 07:00 Absolute Monocytes 0.93 k/cumm (0.11-0.7) H 07/15/19 07:00 Absolute Eosinophils 0.03 k/cumm (0.0-0.7) 07/15/19 07:00 Absolute Basophils 0.03 k/cumm (0.0-0.2) 07/15/19 07:00 Sodium 132 mmol/L (136-145) L 07/16/19 06:20 Potassium 3.9 mmol/L (3.5-5.1) 07/16/19 06:20 Chloride 96 mmol/L (98-107) L 07/16/19 06:20 Carbon Dioxide 27.1 mmol/L (21.0-32.0) 07/16/19 06:20 Anion Gap 8.9 mmol/L (3-11) 07/16/19 06:20 BUN 22 mg/dL (7-18) H 07/16/19 06:20 Creatinine 1.24 mg/dL (0.55-1.02) H 07/16/19 06:20 Estimated GFR/1.73 m2 42.64 (mL/min/1.73m2) 07/16/19 06:20 Glucose 187 mg/dL (74-106) H 07/16/19 06:20 Hemoglobin A1c 7.9 % (3.8-5.6) H 07/15/19 07:00 Calcium 8.8 mg/dL (8.5-10.1) 07/16/19 06:20 Magnesium 1.9 mg/dL (1.8-2.4) 07/16/19 06:20 Total Bilirubin 0.3 mg/dL (0.2-1.0) 07/14/19 09:53 AST 22 U/L (15-37) 07/14/19 09:53 ALT 20 U/L (14-59) 07/14/19 09:53 Alkaline Phosphatase 58 U/L (46-116) 07/14/19 09:53 Troponin I < 0.05 ng/Ml (<0.06) 07/14/19 22:05 Total Protein 7.9 g/dL (6.4-8.2) 07/14/19 09:53 Albumin 3.5 g/dL (3.4-5.0) 07/14/19 09:53 Triglycerides 47 mg/dL (<150) 07/15/19 07:00 Total Cholesterol 127 mg/dL (<200) 07/15/19 07:00 LDL Cholesterol, Calc 56 mg/dL 07/15/19 07:00 HDL Cholesterol 62 mg/dL (40-60) 07/15/19 07:00 Vitamin B12 134 pg/mL (193-986) L 07/16/19 06:20 TSH 0.94 uIU/mL (0.36-3.74) 07/14/19 09:53 Free T4 1.20 ng/dL (0.76-1.46) 07/14/19 09:53 Urine Color Yellow (Yellow) 07/14/19 10:47 Urine Clarity Clear (Clear) 07/14/19 10:47 Urine pH 6.0 (5-8) 07/14/19 10:47 Ur Specific [place] 1.025 (1.005-1.025) 07/14/19 10:47 Urine Protein 30 mg/dL (Negative) H 07/14/19 10:47 Urine Ketones Negative mg/dL (Negative) 07/14/19 10:47 Urine Blood Small (Negative) H 07/14/19 10:47 Urine Nitrite Positive (Negative) H 07/14/19 10:47 Urine Bilirubin Negative (Negative) 07/14/19 10:47 Urine Urobilinogen 0.2 EU/dL (Up TO 0.2) 07/14/19 10:47 Ur Leukocyte Esterase Large (Negative) H 07/14/19 10:47 Urine RBC 0-2 HPF (0-2) 07/14/19 10:47 Urine WBC >50 HPF (0-5) H 07/14/19 10:47 Ur Epithelial Cells Few HPF (Negative) 07/14/19 10:47 Urine Crystals Negative HPF (Negative) 07/14/19 10:47 Urine Bacteria Moderate HPF (Negative) 07/14/19 10:47 Urine Casts Negative LPF (Negative) 07/14/19 10:47 Urine Mucus Negative (Negative) 07/14/19 10:47 Ur Culture Indicated? Yes 07/14/19 10:47 Urine Glucose Negative mg/dL (Negative) 07/14/19 10:47
[2019-07-16] MEDS: traMADol 50 MG TAB PO ×4 (13:00→23:49)
[2019-07-16] MEDS: POTASSIUM CHLORIDE/0.9% NACL 1,000 ML 75 MEQ IV (13:01)
[2019-07-16 13:30] LABS: Abs Immature Grans 0.06 k/cumm (0.0-0.09); Absolute Eosinophil Count 0.08 k/cumm (0.0-0.7); Absolute Monocyte Count 1.11 k/cumm (0.11-0.7); Absolute Neutrophil Count 11.45 k/cumm (1.2-6.7); Basophils % 0.1; Eosinophils % 0.6; HCT 35.7 % (36.0-46.0); HGB 11.6 g/dL (12.0-15.5); Immature Grans % 0.4 %; Lymphocytes % 9.3; Mean Corp. HGB Concentration 32.5 g/dL (32.0-36.0); Mean Corpuscular Hemoglobin 26.8 pg (27.0-33.0); Mean Corpuscular Volume 82.4 fL (80-95); Mean Platelet Volume 10.6 fL (8.0-11.0); Monocytes % 7.9; Neutrophils % 81.7; Platelet Count 380 x1000/uL (130-400); RBC 4.33 m/cumm (4.00-5.20); RBC Distribution Width 16.2 % (11.7-14.6); White Blood Cell Count 14.02 k/cumm (4.4-10.8)
[2019-07-16 13:31] LABS: Absolute Basophil Count 0.01 k/cumm (0.0-0.2)
[2019-07-16 13:39] LABS: BUN 26 mg/dL (7-18); C-Reactive Protein 3.32 mg/dL (0.0-0.3); CREATININE 1.28 mg/dL (0.55-1.02); Calcium 8.7 mg/dL (8.5-10.1); Chloride 93 mmol/L (98-107); Estimated GFR 41.11 (mL/min/1.73m2); Glucose 320 mg/dL (74-106); Potassium 4.3 mmol/L (3.5-5.1); Sodium 128 mmol/L (136-145)
[2019-07-16 14:07] LABS: ESR 45 mm/hr (0-30)
--- NOTE | 2019-07-16 14:31 | DI.CT_ITS ---
EXAM: CT ABDOMEN AND PELVIS WO CLINICAL HISTORY: NAUSEA AND ABDOMINAL PAIN TECHNIQUE: Noncontrast COMPARISON: CHEST FOR PULMONARY EMBOLUS from 11/24/2016 XR CHEST 2V PA LATERAL from 05/12/2019 FINDINGS: There are mild dependent changes at the lung bases. No pneumothorax is visible. There are fractures of the left anterior 6th and 7th ribs. There are fractures of the posterior left 8th and 9th ribs. There is an acute-appearing fracture of the superior endplate of L1 without evidence of retropulsion or posterior element involvement. No pleural or pericardial effusions are seen. The liver, spleen, kidneys, pancreas and adrenals appear intact. The gallbladder is unremarkable. There is no evidenc e of biliary dilatation. No free air, free fluid or bowel dilatation is seen. IMPRESSION: Left rib fractures. No visible pneumothorax or internal organ injury. L1 superior endplate fracture .
--- NOTE | 2019-07-16 14:39 | DI.RAD_ITS ---
EXAM: XR THORACIC SPINE COMPLETE INDICATION: Upper back pain. COMPARISON: XR SHOULDER LT COMPLETE 2+V from 07/14/2019 XR CHEST 2V PA LATERAL from 07/14/2019 CT ABDOMEN PELVIS WO from 07/16/2019 TECHNIQUE: 2D digital imaging was performed. FINDINGS: There is mild wedging of the anterior superior endplate of L1 which was not seen on the previous exa m. Degenerative changes are noted, greatest at T11-12. The remaining vertebral bodies appear unchan ged from previous chest x-ray. IMPRESSION: Mild compression of the anterosuperior endplate of L1.
--- NOTE | 2019-07-16 14:45 | DI.RAD_ITS ---
EXAM: XR RIBS ONLY LT INDICATION: rib fx. COMPARISON: CT ABDOMEN PELVIS WO from 07/16/2019 XR THORACIC SPINE COMPLETE from 07/16/2019 CT ABDOMEN PELVIS WO from 07/16/2019 TECHNIQUE: 2D digital imaging was performed. FINDINGS: There are fractures of the left 5th through 8th ribs. The exam is limited by multiple leads overlyin g the chest. Lower ribs are not well seen. No pneumothorax is visible. No focal area of consolidat ion or pulmonary contusion is seen. IMPRESSION: Mildly displaced fractures of the left 5th through 8th ribs.
--- NOTE | 2019-07-16 15:21 | DI.VRAD_ITS ---
Addendum created by Gil Sheikh MD on 07/16/2019 3:22:22 PM EST The vertebral body fracture is actually at L1 not L2. Initial report created on 07/16/2019 3:20:48 PM EST PROCEDURE INFORMATION: Exam: CT Abdomen And Pelvis Without Contrast Exam date and time: 07/16/2019 12:45 PM Age: 69 years old Clinical indication: Pain and injury or trauma; Fall; Initial encounter; Nausea; Blunt; Luq; Abdominal pain TECHNIQUE: Imaging protocol: Computed tomography of the abdomen and pelvis without contrast. COMPARISON: CR RT HIP COMPLETE AP PELVIS 04/03/2016 11:08 AM FINDINGS: No basilar pneumothorax. Mild left basilar atelectasis posteriorly. Liver, spleen, and kidneys appear intact allowing for the lack of IV contrast. Mild lobulation of the right kidney. Suggestion of mild acute compression of the L2 vertebral body without significant posterior bony protrusion. Mildly displaced left posterior 8th and 9th rib fractures. Minimal left pleural effusion possibly representing a tiny hemothorax. IMPRESSION: Left-sided posterior rib fractures and a minimally depressed fracture of the L2 vertebral body as outlined above. Dictated and Authenticated by: Gil Sheikh MD. Ordering:[facility] Yelitza Canchola MD
--- NOTE | 2019-07-16 15:23 | DI.VRAD_ITS ---
PROCEDURE INFORMATION: Exam: XR Thoracic Spine, 3 Views Exam date and time: 07/16/2019 2:43 PM Age: 69 years old Clinical indication: Other: Fall pain subscapular TECHNIQUE: Imaging protocol: XR of the thoracic spine, 3 views. COMPARISON: No relevant prior studies available. FINDINGS: Slight irregularity to the anterior superior aspect of the L1 vertebral body suggesting a minimally displaced compression fracture. No other acute fracture identified. Degenerative spurring of the thoracic spine. IMPRESSION: Mild acute compression of the L1 vertebral body. Dictated and Authenticated by: Gil Sheikh MD. Ordering:[facility] Yelitza Canchola MD
--- NOTE | 2019-07-16 15:24 | DI.VRAD_ITS ---
PROCEDURE INFORMATION: Exam: XR Left Ribs with PA Chest, 3 Views Exam date and time: 07/16/2019 2:50 PM Age: 69 years old Clinical indication: Other: Pain, fall, subscapular TECHNIQUE: Imaging protocol: XR Left ribs 3 views with PA chest. COMPARISON: CR XR CHEST 2V PA LATERAL 07/14/2019 10:18 AM FINDINGS: Mildly displaced left 5th through 8th rib fractures posteriorly. No evidence of pneumothorax. No focal consolidation. IMPRESSION: Left-sided posterior rib fractures. Dictated and Authenticated by: Gil Sheikh MD. Ordering:AIDE Clark MD
--- NOTE | 2019-07-16 16:52 | CMPROGNOTE_ITS ---
- If Service Date Differs Date of service: 07/16/19 Time of Service: 16:52 Care Management Progress Note S/O: Hope was sitting up in a chair when CM met with her. She stated that the pain in her back is getting worse. She was given Tylenol with no relief. Orders were written by provider for prn Dilaudid which she received about 1530. Hope did state that her heart rate is lower and that she feels better in that way. She talked about a bit about her pets; rabbit, parrot and cat A: Hope is a 69 year old male Neurological Transient deficit and UTI P:Hope will likely be discharged home with no additional services. She has community support, including [place] [facility] and [facility]. CM to continue to provide support to patient, ongoing discharge planning and disposition.
[2019-07-16 17:08] LABS: Procalcitonin 0.1 ng/mL
[2019-07-16] MEDS: Normal Saline Flush 10 ML SYR IVP (17:34)
[2019-07-16] MEDS: levoFLOXacin 750 MG/150 ML BAG 100 MG IVPB (17:34)
[2019-07-16] MEDS: Patch Removal 1 EACH TP (19:56)
[2019-07-16] MEDS: Calcium 600mg/Vit D 200U TAB 1 TAB PO (19:56)
[2019-07-16] MEDS: Atorvastatin 20 MG TAB PO (19:58)
[2019-07-16] MEDS: Metoprolol CR 100 MG TABCR 200 MG PO (19:58)
[2019-07-16] MEDS: Insulin Glargine 300 UNITS/3 ML PEN 45 UNITS SC (21:14)
[2019-07-16] MEDS: Docusate Sodium 100 MG CAP PO (23:49)
[2019-07-17] VITALS (15 sets, daily range): BP systolic 119–132; BP diastolic 63–79; PULSE 78–104; RESP 10–18; TEMP 35.5–36.8; O2SAT 92–97
[2019-07-17] MEDS: HYDROmorphone 2 MG TAB PO (02:26)
[2019-07-17] MEDS: POTASSIUM CHLORIDE/0.9% NACL 1,000 ML 75 MEQ IV (04:09)
[2019-07-17] MEDS: Omeprazole 20 MG CAPCR PO (06:00)
[2019-07-17] MEDS: Acetaminophen 325 MG TAB PO ×3 (06:00→23:10)
[2019-07-17] MEDS: Normal Saline Flush 10 ML SYR IVP ×3 (06:01→20:19)
[2019-07-17 07:02] LABS: Abs Immature Grans 0.04 k/cumm (0.0-0.09); Absolute Eosinophil Count 0.25 k/cumm (0.0-0.7); Absolute Monocyte Count 1.36 k/cumm (0.11-0.7); Absolute Neutrophil Count 8.44 k/cumm (1.2-6.7); Basophils % 0.3; Eosinophils % 2.1; HCT 36.1 % (36.0-46.0); HGB 11.6 g/dL (12.0-15.5); Immature Grans % 0.3 %; Mean Corp. HGB Concentration 32.1 g/dL (32.0-36.0); Mean Corpuscular Hemoglobin 26.7 pg (27.0-33.0); Mean Corpuscular Volume 83.2 fL (80-95); Monocytes % 11.4; Neutrophils % 70.9; Platelet Count 343 x1000/uL (130-400); RBC 4.34 m/cumm (4.00-5.20); RBC Distribution Width 16.1 % (11.7-14.6)
[2019-07-17 07:12] LABS: Absolute Basophil Count 0.04 k/cumm (0.0-0.2); Absolute Lymphocyte Count 1.79 k/cumm (1.2-3.4); BUN 23 mg/dL (7-18); CREATININE 1.03 mg/dL (0.55-1.02); Calcium 8.7 mg/dL (8.5-10.1); Chloride 98 mmol/L (98-107); Estimated GFR 52.82 (mL/min/1.73m2); Glucose 214 mg/dL (74-106); Potassium 4.6 mmol/L (3.5-5.1); Sodium 133 mmol/L (136-145)
[2019-07-17] MEDS: Insulin Aspart 300 UNITS/3 ML PEN SC ×7 (07:41→21:31)
[2019-07-17] MEDS: Aspirin E.C. 81 MG TABEC PO (08:01)
[2019-07-17] MEDS: Calcium 600mg/Vit D 200U TAB 1 TAB PO ×2 (08:01→20:00)
[2019-07-17] MEDS: Cyanocobalamin 1000 MCG/ML VIAL IM/SC (08:02)
[2019-07-17] MEDS: dilTIAZem CD 120 MG CAPCR 240 MG PO (08:02)
[2019-07-17] MEDS: Cholecalciferol (Vitamin D3) 400 UNIT TAB PO (08:02)
[2019-07-17] MEDS: Lidocaine 5% Patch 2 PATCH TP (08:03)
[2019-07-17] MEDS: Lisinopril 10 MG TAB PO (08:05)
[2019-07-17] MEDS: Magnesium Chloride 64 MG TABCR 128 MG PO ×2 (08:05→19:59)
[2019-07-17] MEDS: Rivaroxaban 10 MG TABLET 20 MG PO (08:06)
[2019-07-17] MEDS: Calcitonin-Salmon, Synthetic 3.7 ML BTL NS (08:26)
--- NOTE | 2019-07-17 08:48 | PDOC.CMPRO ---
- If Service Date Differs Date of service: 07/17/19 Time of Service: 08:48 Care Management Progress Note S/O: Hope was sitting up in a chair when CM met with her. She stated that the pain in her back is slowly improving. Her pain medication has been adjusted and seems to be working. Yesterday Dr. Torre ordered x-rays and discovered that Hope has several posterior rib fractures as well as a lumbar compression fracture. Hope shared that she checked on her animals today and they are all well, and she feels better knowing they are OK. A: Hope is a 69 year old male Neurological Transient deficit and UTI P:Hope will likely be discharged home with no additional services. She has community support, including [place] [facility] and [facility]. CM to continue to provide support to patient, ongoing discharge planning and disposition.
--- NOTE | 2019-07-17 08:56 | PGE_ITS ---
Date of Service Date of service: 07/17/19 Time of Service: 08:57 Assessment and Plan Assessment and plan (1) Atrial fibrillation and flutter: Status: Acute Assessment and plan: Atrial fibrillation rate is under much improved control on the increased dose of diltiazem CD 240 mg every morning and Toprol-XL 200 mg every afternoon. She remains anticoagulated with Xarelto and low-dose aspirin. She has been off IV diltiazem for over 24 hours therefore she can be transferred out to the medical/surgical floor on continued telemetry monitoring. 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 She is complete a work-up including carotid Doppler scan, MRI/MRA of the brain and echocardiogram. She has no evidence of acute stroke. She has microvascular disease by MRI and hemodynamically significant cerebral vascular occlusive disease. (3) UTI (urinary tract infection): Status: Acute Assessment and plan: Urine culture is growing 3 different gram-negative species. 2 of them have been identified as [place] and E. coli both of which are sensitive to Levaquin. She remains afebrile and her leukocytosis is trending downward. I will switch her over from IV Levaquin to oral Levaquin.. Qualifiers: Urinary tract infection type: catheter-associated UTI Indwelling urinary catheter type: cystostomy catheter Encounter type: initial encounter Qualified Code(s): T83.510A - Infection and inflammatory reaction due to cystostomy catheter, initial encounter; N39.0 - Urinary tract infection, site not specified (4) Poorly controlled type 2 diabetes mellitus: Status: Acute Assessment and plan: I am going to resume her metformin and continue to treat her with basal bolus insulin while she is here in the hospital.. (5) Left shoulder pain: Status: Acute Assessment and plan: Pain is under much better control. We found the root cause of her pain is due to multiple left-sided rib fractures ribs 5 through 8. She also has L1 and L2 vertebral compression fractures. I started her on calcitonin nasal spray along with vitamin D and calcium carbonate supplements. Tramadol seems to be controlling her pain pretty well for breakthrough pain she has oral Dilaudid.. Qualifiers: Chronicity: acute Qualified Code(s): M25.512 - Pain in left shoulder (6) Fungal dermatitis: Status: Acute Assessment and plan: Rx'ed clotrimazole/vitamin A/zinc ointment. Nursing requested nystatin powder for under her breasts. (7) Urinary retention: Status: Acute Assessment and plan: Suprapubic catheter exchanged on Thursday (8) Hypomagnesemia: Status: Acute Assessment and plan: Replete both PO (9) DVT prophylaxis: Status: Acute Assessment and plan: On therapeutic xarelto (10) Epigastric abdominal pain: Status: Resolved (11) Fracture, lumbar vertebra, compression: Status: Acute Assessment and plan: Patient has L1 and L2 vertebral compression fractures probably due to underlying osteoporosis and complicated by frequent falls. I will start her on calcitonin and calcium with vitamin D while here in the hospital. She should be evaluated with a bone DEXA scan as an outpatient and started on either a bisphosphonate or a parathyroid hormone analog. Qualifiers: Encounter type: initial encounter Lumbar vertebra fracture level: L1 Qualified Code(s): S32.010A - Wedge compression fracture of first lumbar vertebra, initial encounter for closed fracture (12) Multiple rib fractures involving four or more ribs: Status: Acute Assessment and plan: We will treat her vertebral back pain and multiple left-sided rib fractures with narcotic analgesics and Lidoderm patches. We will start her on calcitonin along with vitamin D and calcium carbonate. (13) Discharge planning issues: Status: Acute Assessment and plan: She will resume supports through [facility], [facility] and [facility] at time of discharge and coordination of transportation home through [facility] at time of discharge. Subjective Subjective Interval history since last seen: Patient continues to improve. She has much better control of her pain. X-rays yesterday confirmed that she has multiple rib fractures on her left side as well as lumbar compression fractures. I started on calcitonin nasal spray along with vitamin D and calcium carbonate supplements. I put her on tramadol for mild to moderate pain and oral Dilaudid for severe pain. She slept well overnight. Appetite is still only fair but no nausea or vomiting. Heart rate and blood pressure been well controlled. A. fib rate is well controlled in the 90s. But a transfer out of the ICU to the medical/surgical floor on continued telemetry. I will increase her activity level. She lives at home alone and is fearful of being sent home too soon. However she refuses to go to a rehab center. Will encourage participation in PT and OT while she is here. Hopefully she will continue to progress over the next 1 to 2 days and be able to be discharged home with home health services early part of this week. Exam Narrative Exam Narrative: Elderly female who is kyphotic sitting up in her chair has an indwelling suprapubic catheter which was changed during this admission. Lungs are clear to auscultation Her parathoracic chest wall tenderness is much better.. Heart is irregularly irregular at a controlled rate in the 90s. Abdomen is obese soft with normoactive bowel and nontender to palpation Legs without peripheral edema. Objective Objective Clinical Data: Abnormal lab results 07/16/19 07/16/19 07/16/19 Range/Units 13:25 13:25 13:25 WBC 14.02 H (4.4-10.8) k/cumm Hgb 11.6 L (12.0-15.5) g/dL Hct 35.7 L (36.0-46.0) % MCH 26.8 L (27.0-33.0) pg RDW 16.2 H (11.7-14.6) % Absolute Neutrophils 11.45 H (1.2-6.7) k/cumm Absolute Monocytes 1.11 H (0.11-0.7) k/cumm ESR 45 H (0-30) mm/hr Sodium 128 L (136-145) mmol/L Chloride 93 L (98-107) mmol/L Anion Gap 12.0 H (3-11) mmol/L BUN 26 H (7-18) mg/dL Creatinine 1.28 H (0.55-1.02) mg/dL Glucose 320 H D (74-106) mg/dL C-Reactive Protein 3.32 H (0.0-0.3) mg/dL 07/17/19 07/17/19 Range/Units 06:25 06:25 WBC 11.90 H (4.4-10.8) k/cumm Hgb 11.6 L (12.0-15.5) g/dL Hct (36.0-46.0) % MCH 26.7 L (27.0-33.0) pg RDW 16.1 H (11.7-14.6) % Absolute Neutrophils 8.44 H (1.2-6.7) k/cumm Absolute Monocytes 1.36 H (0.11-0.7) k/cumm ESR (0-30) mm/hr Sodium 133 L (136-145) mmol/L Chloride (98-107) mmol/L Anion Gap (3-11) mmol/L BUN 23 H (7-18) mg/dL Creatinine 1.03 H (0.55-1.02) mg/dL Glucose 214 H D (74-106) mg/dL C-Reactive Protein (0.0-0.3) mg/dL Vital Signs Temperature 35.5 C L 07/17/19 07:46 Temperature Source Temporal Artery Scan 07/17/19 07:46 Pulse 97 H 07/17/19 07:46 Pulse Rhythm Irregular 07/15/19 08:30 Pulse 92 H 07/17/19 06:01 Respiratory Rate 11 L 07/17/19 07:46 Respiratory Effort 07/17/19 03:12 Respiratory Depth Shallow 07/17/19 03:12 Respiratory Pattern Normal 07/17/19 03:12 Blood Pressure 128/71 07/17/19 07:46 Blood Pressure Mean 78 07/17/19 06:01 Blood Pressure Position Sitting 07/16/19 13:13 Pulse Oximetry 95 07/17/19 07:46 Oxygen Delivery Method Room Air 07/17/19 07:46 Oxygen Flow Rate 0 07/17/19 07:46 Pain Level 6 07/17/19 07:46 Comment 07/15/19 15:38 Intake & Output 07/16/19 07/16/19 07/17/19 11:59 23:59 11:59 Intake Total 1227.917 / 3556.367 2328.45 / 3556.367 982.75 / 982.75 Output Total 650 / 1040 390 / 1040 1450 / 1450 Balance 577.917 / 2516.367 1938.45 / 2516.367 -467.25 / -467.25 Intake: IV 637.917 / 1136.367 498.45 / 1136.367 658.75 / 658.75 Oral 590 / 2420 1830 / 2420 324 / 324 Output: Urine 650 / 1040 390 / 1040 1450 / 1450 Other: Urine Color Yellow Yellow Pale Urine Appearance Clear Clear Clear Comment Patient has supra pubic catheter--draining clear yellow urine. Suprapubic catheter draining clear yellow urine. Insertion site viewed. Cream has been applied. No reddening noted. Stool Occult Blood Negative Stool Size Small Stool Characteristics Soft Formed Laboratory Results WBC 11.90 k/cumm (4.4-10.8) H 07/17/19 06:25 RBC 4.34 m/cumm (4.00-5.20) 07/17/19 06:25 Hgb 11.6 g/dL (12.0-15.5) L 07/17/19 06:25 Hct 36.1 % (36.0-46.0) 07/17/19 06:25 MCV 83.2 fL (80-95) 07/17/19 06:25 MCH 26.7 pg (27.0-33.0) L 07/17/19 06:25 MCHC 32.1 g/dL (32.0-36.0) 07/17/19 06:25 RDW 16.1 % (11.7-14.6) H 07/17/19 06:25 Plt Count 343 x1000/uL (130-400) 07/17/19 06:25 MPV 11.0 fL (8.0-11.0) 07/17/19 06:25 Immature Gran % 0.3 % 07/17/19 06:25 Neutrophils % 70.9 07/17/19 06:25 Lymphocytes % 15.0 07/17/19 06:25 Monocytes % 11.4 07/17/19 06:25 Eosinophils % 2.1 07/17/19 06:25 Basophils % 0.3 07/17/19 06:25 Absolute Neutrophils 8.44 k/cumm (1.2-6.7) H 07/17/19 06:25 Absolute Lymphocytes 1.79 k/cumm (1.2-3.4) 07/17/19 06:25 Absolute Monocytes 1.36 k/cumm (0.11-0.7) H 07/17/19 06:25 Absolute Eosinophils 0.25 k/cumm (0.0-0.7) 07/17/19 06:25 Absolute Basophils 0.04 k/cumm (0.0-0.2) 07/17/19 06:25 ESR 45 mm/hr (0-30) H 07/16/19 13:25 Sodium 133 mmol/L (136-145) L 07/17/19 06:25 Potassium 4.6 mmol/L (3.5-5.1) 07/17/19 06:25 Chloride 98 mmol/L (98-107) 07/17/19 06:25 Carbon Dioxide 24.0 mmol/L (21.0-32.0) 07/17/19 06:25 Anion Gap 11.0 mmol/L (3-11) 07/17/19 06:25 BUN 23 mg/dL (7-18) H 07/17/19 06:25 Creatinine 1.03 mg/dL (0.55-1.02) H 07/17/19 06:25 Estimated GFR/1.73 m2 52.82 (mL/min/1.73m2) 07/17/19 06:25 Glucose 214 mg/dL (74-106) H D 07/17/19 06:25 Hemoglobin A1c 7.9 % (3.8-5.6) H 07/15/19 07:00 Calcium 8.7 mg/dL (8.5-10.1) 07/17/19 06:25 Magnesium 1.9 mg/dL (1.8-2.4) 07/16/19 06:20 Total Bilirubin 0.3 mg/dL (0.2-1.0) 07/14/19 09:53 AST 22 U/L (15-37) 07/14/19 09:53 ALT 20 U/L (14-59) 07/14/19 09:53 Alkaline Phosphatase 58 U/L (46-116) 07/14/19 09:53 Troponin I < 0.05 ng/Ml (<0.06) 07/14/19 22:05 C-Reactive Protein 3.32 mg/dL (0.0-0.3) H 07/16/19 13:25 Total Protein 7.9 g/dL (6.4-8.2) 07/14/19 09:53 Albumin 3.5 g/dL (3.4-5.0) 07/14/19 09:53 Triglycerides 47 mg/dL (<150) 07/15/19 07:00 Total Cholesterol 127 mg/dL (<200) 07/15/19 07:00 LDL Cholesterol, Calc 56 mg/dL 07/15/19 07:00 HDL Cholesterol 62 mg/dL (40-60) 07/15/19 07:00 Vitamin B12 134 pg/mL (193-986) L 07/16/19 06:20 TSH 0.94 uIU/mL (0.36-3.74) 07/14/19 09:53 Free T4 1.20 ng/dL (0.76-1.46) 07/14/19 09:53 Procalcitonin 0.1 ng/mL 07/16/19 13:25 Urine Color Yellow (Yellow) 07/14/19 10:47 Urine Clarity Clear (Clear) 07/14/19 10:47 Urine pH 6.0 (5-8) 07/14/19 10:47 Ur Specific [place] 1.025 (1.005-1.025) 07/14/19 10:47 Urine Protein 30 mg/dL (Negative) H 07/14/19 10:47 Urine Ketones Negative mg/dL (Negative) 07/14/19 10:47 Urine Blood Small (Negative) H 07/14/19 10:47 Urine Nitrite Positive (Negative) H 07/14/19 10:47 Urine Bilirubin Negative (Negative) 07/14/19 10:47 Urine Urobilinogen 0.2 EU/dL (Up TO 0.2) 07/14/19 10:47 Ur Leukocyte Esterase Large (Negative) H 07/14/19 10:47 Urine RBC 0-2 HPF (0-2) 07/14/19 10:47 Urine WBC >50 HPF (0-5) H 07/14/19 10:47 Ur Epithelial Cells Few HPF (Negative) 07/14/19 10:47 Urine Crystals Negative HPF (Negative) 07/14/19 10:47 Urine Bacteria Moderate HPF (Negative) 07/14/19 10:47 Urine Casts Negative LPF (Negative) 07/14/19 10:47 Urine Mucus Negative (Negative) 07/14/19 10:47 Ur Culture Indicated? Yes 07/14/19 10:47 Urine Glucose Negative mg/dL (Negative) 07/14/19 10:47
[2019-07-17] MEDS: Nystatin POWDER 60 GM JAR TP ×2 (10:14→20:05)
[2019-07-17] MEDS: Normal Saline 1,000 ML 50 ML IV ×2 (10:33→20:20)
[2019-07-17] MEDS: traMADol 50 MG TAB PO ×4 (11:16→23:11)
--- NOTE | 2019-07-17 13:00 | W.INDIABCONS ---
Date of service: 07/17/19 Time of Service: 13:02 Diabetes Inpatient Consult DESCRIPTION/ASSESSMENT: Appreciate diabetes consult for Hope Busby who is hospitalized with heart concerns and UTI. BMI 32 A1c 7.9 for 69 year old. At admission Hope had blood sugar 82, subsequently in 299s and now with blood sugar in 100s occasionally taking her usual 45u basal insulin as well as mealtime insulin at 1 unit for 120 grams carbohydrate and sensitive insulin correction. At home she takes 12u Novolog twice daily according to outpatient medication list in addition to Metformin. Met with Hope briefly. She is content with current regimen while hospitalized. INTERVENTION: She may benefit from higher insulin correction to moderate to address persistent hyperglycemia. If that does not correct hyperglycemia, a more resistant insulin:carb of 1 unit covers 5 grams may be beneficial. She has had self management support in the past. PLAN: Will follow blood sugars; suggest increase in insulin correction. Time Spent in Nutritional Counseling and Treatment: 5 minutes face to face
[2019-07-17] MEDS: metFORMIN 500 MG TAB 1000 MG PO (17:16)
--- NOTE | 2019-07-17 19:32 | NUR.NOTE ---
Nursing Note: Patient transferred from unit to floor via wheelchair. Patient alert and oriented. HR irregular. Lungs clear. Normal bowel sounds. Barber in place. Reports pain getting better. Up with 1 assist and a walker. Sitting in chair. Reports is comfortable.
[2019-07-17] MEDS: levoFLOXacin 500 MG, levoFLOXacin 250 MG 750 MG PO (19:59)
[2019-07-17] MEDS: Metoprolol CR 100 MG TABCR 200 MG PO (20:00)
[2019-07-17] MEDS: Atorvastatin 20 MG TAB PO (20:01)
[2019-07-17] MEDS: Patch Removal 1 EACH TP (20:05)
[2019-07-17] MEDS: Insulin Glargine 300 UNITS/3 ML PEN 45 UNITS SC (21:32)
[2019-07-18] VITALS (7 sets, daily range): BP systolic 106–124; BP diastolic 69–87; PULSE 72–100; RESP 17–19; TEMP 36–37; O2SAT 93–96
--- NOTE | 2019-07-18 00:04 | NUR.NOTE ---
At approx 2230 on 07/17 pt became unresponsive for a period of 5-7 seconds while in bed. Pt had just ambulated back to bed from [facility]. Pt was with PIG MACHINE OPERATOR HELPER at the time, this RN was called to the room and pt was fully responsive when I arrived. Per pt, she was repositioning in bed when she turned and had a sharp pain in her Left shoulder, she remembers closing her eyes then hearing her name and opening them up. PIG MACHINE OPERATOR HELPER reports closed eyes and lack of response lasting only 5-7 seconds, and response to verbal stimuli. VS were WNL. FS 231. No changes on tele. Pt denies dizziness, nausea, SMITH, any odd sensations or changes in vision or hearing either before or after event. Pt was monitored by this RN for approx 5 minutes, VS were retaken, no changes. Pt was then medicated for pain per MAR as her pain level remained a 9/10 and a heating pad was given. At 0010 07/18 pts pain down to 4/10 which she states is comfortable. Bed alarms remain ON, increased supervision, [id number].
[2019-07-18] MEDS: traMADol 50 MG TAB PO ×2 (03:20→12:26)
[2019-07-18] MEDS: Acetaminophen 325 MG TAB PO (03:21)
[2019-07-18 06:59] LABS: Abs Immature Grans 0.05 k/cumm (0.0-0.09); Absolute Basophil Count 0.01 k/cumm (0.0-0.2); Absolute Eosinophil Count 0.26 k/cumm (0.0-0.7); Absolute Lymphocyte Count 1.66 k/cumm (1.2-3.4); Absolute Monocyte Count 1.06 k/cumm (0.11-0.7); Absolute Neutrophil Count 7.58 k/cumm (1.2-6.7); Basophils % 0.1; Eosinophils % 2.4; HCT 36.5 % (36.0-46.0); HGB 11.6 g/dL (12.0-15.5); Immature Grans % 0.5 %; Lymphocytes % 15.6; Mean Corp. HGB Concentration 31.8 g/dL (32.0-36.0); Mean Corpuscular Hemoglobin 26.7 pg (27.0-33.0); Mean Corpuscular Volume 84.1 fL (80-95); Mean Platelet Volume 10.7 fL (8.0-11.0); Neutrophils % 71.4; Platelet Count 396 x1000/uL (130-400); RBC 4.34 m/cumm (4.00-5.20); RBC Distribution Width 15.9 % (11.7-14.6); White Blood Cell Count 10.62 k/cumm (4.4-10.8)
[2019-07-18 07:09] LABS: Anion Gap 9.1 mmol/L (3-11); BUN 24 mg/dL (7-18); CO2 24.9 mmol/L (21.0-32.0); CREATININE 1.14 mg/dL (0.55-1.02); Calcium 8.9 mg/dL (8.5-10.1); Chloride 102 mmol/L (98-107); Estimated GFR 46.99 (mL/min/1.73m2); Glucose 125 mg/dL (74-106); Potassium 4.3 mmol/L (3.5-5.1); Sodium 136 mmol/L (136-145)
--- NOTE | 2019-07-18 07:40 | NT_ITS ---
Date of service: 07/18/19 Time of Service: 07:40 Occupational Therapy Notes 07/18/19 Pt was transferred to the ICU on 07/16/19. Due to a decline in medical status, OT will need a new referral if MD feels that pt is appropriate for skilled OT services at this time. Maribell Hernandez, OTR/L [facility]
[2019-07-18] MEDS: dilTIAZem CD 120 MG CAPCR 240 MG PO (08:51)
[2019-07-18] MEDS: Omeprazole 20 MG CAPCR PO (08:51)
[2019-07-18] MEDS: Rivaroxaban 10 MG TABLET 20 MG PO (08:51)
[2019-07-18] MEDS: metFORMIN 500 MG TAB 1000 MG PO ×2 (08:51→16:55)
[2019-07-18] MEDS: Calcium 600mg/Vit D 200U TAB 1 TAB PO ×2 (08:51→20:23)
[2019-07-18] MEDS: Lisinopril 10 MG TAB PO (08:52)
[2019-07-18] MEDS: Aspirin E.C. 81 MG TABEC PO (08:52)
[2019-07-18] MEDS: Cholecalciferol (Vitamin D3) 400 UNIT TAB PO (08:52)
[2019-07-18] MEDS: Magnesium Chloride 64 MG TABCR 128 MG PO ×2 (08:52→20:19)
[2019-07-18] MEDS: Cyanocobalamin 1000 MCG/ML VIAL IM/SC (08:52)
[2019-07-18] MEDS: Insulin Aspart 300 UNITS/3 ML PEN SC ×5 (09:00→21:36)
[2019-07-18] MEDS: Lidocaine 5% Patch 2 PATCH TP (09:01)
[2019-07-18] MEDS: Calcitonin-Salmon, Synthetic 3.7 ML BTL NS (09:27)
[2019-07-18] MEDS: Nystatin POWDER 60 GM JAR TP ×2 (09:28→20:24)
--- NOTE | 2019-07-18 12:46 | PDOC.CMPRO ---
- If Service Date Differs Date of service: 07/18/19 Time of Service: 12:46 Care Management Progress Note S/O:Hope remains inpatient today, no change in the plan of care. A: Hope is a 69 year old male Neurological Transient deficit, UTI, Afib, and found to have multiple fractured ribs and compression fracture of L1, L2. P:Hope will likely be discharged home with no additional services. She has community support, including [place] [facility] and [facility]. to continue to provide support to patient, ongoing discharge planning and disposition.
--- NOTE | 2019-07-18 13:03 | INDS_ITS ---
Date of service: 07/18/19 Time of Service: 08:00 PT Notes Visit Reasons: transient neurologic deficit, uti Physical Therapy Inpatient Discharge Summary Date: 07/18/2019 Dates of Service: 07/15/2019 This is a clinical summary of care provided on the duration of dates listed abov emili. No charge was made in the completion of this documentation. Patient Profile/Admitting Diagnosis: Patient is discharged from acute care level to ICU level on 07/15/2019 for close cardiac monitoring and management. She was sent back to the med surg unit on 07/17/2019. Pt is a 69-year-old female who presented to the ER on 07/14/2019 for left-sided weakness and left vision problems. She was admitted to the hospital with diagnoses of TIA, UTI, atrial flutter, and poorly controlled diabetes mellitus. PMHX: Diabetes mellitus Fungal dermatitis Urinary retention Atrial flutter Paroxysmal supraventricular tachycardia Vaginal bleeding Hypomagnesemia Fracture of femoral neck, right Hyperkalemia Social History/Home Situation: Pt lives alone at [address] on the third floor with her parrot, rabbit, and cat. She notes there is a ramp and elevators to enter the apartment. Equipment Owned/DME: rollator, front-wheeled walker, cane Objective: General Observation: suprapubic catheter and telemonitor in place. Pain: reports experiencing pain in her left scapula and below Vital Signs: at rest: BP 151/86 mmHg, HR 110 bpm, SpO2 90% ROM: Right Upper Extremity: Shoulder Flexion WFL. Shoulder abduction WFL. Elbow flexion WFL. Wrist flexion WFL. Opening and closing of hand WFL. Left Upper Extremity: Shoulder Flexion WFL. Shoulder abduction WFL. Elbow flexion WFL. Wrist flexion WFL. Opening and closing of hand WFL. Right Lower Extremity: Hip flexion WFL. Hip abduction WFL. Knee flexion WFL. Ankle dorsiflexion WFL. Ankle plantarflexion WFL. Left Lower Extremity: Hip flexion WFL. Hip abduction WFL. Knee flexion WFL. Ankle dorsiflexion WFL. Ankle plantarflexion WFL. Strength: Right Upper Extremity: Shoulder flexors 3-/5. Shoulder abductors 3-/5. Elbow flexors 4+/5. Elbow extensors 4/5. Parliamentary Counsel strong. Left Upper Extremity: Shoulder flexors 3-/5. Shoulder abductors 3-/5. Elbow flexors 4+/5. Elbow extensors 4/5. Parliamentary Counsel strong. Right Lower Extremity: Hip flexors 4+/5. Hip abductors 5/5. Knee flexors 5/5. Knee extensors 4+/5. Ankle dorsiflexors 5/5. Ankle plantarflexors 5/5. Left Lower Extremity: Hip flexors 4+/5. Hip abductors 5/5. Knee flexors 5/5. Knee extensors 4+/5. Ankle dorsiflexors 5/5. Ankle plantarflexors 5/5. Sensation: Intact as to pain and pressure on bilateral lower extremities. Bed Mobility/Transfers: Rolling CGA Supine to sit CGA Sit to supine CGA Sit to stand CGA Stand to sit CGA Bed to chair CGA Chair to bed CGA Gait: Pt was only able tolerate ambulating 25 feet + 5 feet FWB using a front- wheeled walker. Demonstrates decreased tiffany. CGA provided by PT with wheelchair follow by PT student. BP remained within her normal limits, however, HR dropped to 50 bpm and gradually increased to 100 bpm after a standing rest break. Pt denied chest pain, SOB, and dizziness. Exercise was discontinued and the patient transferred back to her chair. Balance: Static Sitting: Normal Dynamic Sitting: Normal Static Standing: Fair Dynamic Standing: Fair Assessment: Pt is a 69-year-old female who presented to the ER on 07/14/2019 for left-sided weakness and left vision problems. She was admitted to the hospital with diagnoses of TIA, UTI, atrial flutter, and poorly controlled diabetes mellitus. Pt presents to physical therapy on initial evaluation with impairment level findings that limit her ability to safely return home. She would continue benefit from skilled physical therapy at this time, however, was transferred to the ICU and will require a second referral due to decline in the pt status. Patient presented with clinical signs and symptoms consistent with current/admitting diagnoses that have resulted to mobility limitations, gait instability, and generalized weakness, as demonstrated by the following impairment level findings: 1. Decreased strength to B LE and UE major muscle groups 2. Impaired sitting/standing balance 3. Impaired activity tolerance 4. Impaired cardiovascular endurance Impairments continue to contribute to the following functional limitations: 1. Dependent bed mobility skills 2. Increased dependence with transfers 3. Inability to safely ambulate without assistive device and physical assistance 4. Increase completion time for mobility ADL performance 5. Increased fall risk Patient is assessed as a 28011 moderate complexity based on the following: History: Pt is a 69-year-old female who presented to the ER on 07/14/2019 for left-sided weakness and left vision problems. She was admitted to the hospital with diagnoses of TIA, UTI, atrial flutter, and poorly controlled diabetes mellitus. She presented with impairment level finings. AM-PAC raw score of 18 with 47% deficit on initial evaluation. Examination: Demonstrable impairment in strength, balance, and range of motion with underlying impairments and functional limitations as documented above Presentation: Evolving Decision Makin moderate complexity Goals: Goals X1 week 1. Supine-Sit independent -NOT MET 2. Sit-Supine independent -NOT MET 3. Sit-Stand independent -NOT MET 4. Stand-Sit independent -NOT MET 5. Bed-Chair independent -NOT MET 6. Chair-Bed independent -NOT MET 7. Independent gait on level surface with use of least restrictive device for at least 300 feet without report of pain nor dyspnea -NOT MET 8. Independent stair negotiation while holding onto bilateral rails for at least 5 steps without report of pain nor dyspnea -NOT MET 9. Independent with home exercise program -NOT MET 10. Good static and dynamic standing balance/tolerance -NOT MET DISCHARGE RECOMMENDATIONS: Pt would continue to benefit from skilled physical therapy, due to decline in status and transfer to ICU she will require a second referral to physical therapy. Discharge to home when medically cleared. Recom mend home health physical therapy for continued strengthening and improved cardiovascular endurance. No assistive devices recommendations as pt currently has a front-wheeled walker, rollator, and cane at home. Thank you very much for this referral. Brianda Hawk, JUANITA Doctor of Physical Therapy Student [facility] Supervision provided by Sue Dejesus PT, DPT, CLT [facility] [place], [place]
--- NOTE | 2019-07-18 13:07 | PT.INIE ---
Date of service: 07/18/19 Time of Service: 11:40 PT Notes Visit Reasons: transient neurologic deficit, uti Physical Therapy Inpatient Initial EValuation Date: 07/18/2019 Referring Doctor: Sushant Torre M.D. PT Orders: PT CONSULT: Safety consult for D/C Precautions: Fall. Standard. Activity as tolerated. Patient Profile/Admitting Diagnosis: Pt is a 69-year-old female who presented to the ER on 07/14/2019 for left-sided weakness and left vision problems. She was transferred from [facility] on 07/15/2019 to the ICU for three days and transferred back to the unit on 07/17/2019 with diagnoses of atrial fibrillation and flutter, transient neurologic deficit, UTI, poorly controlled diabetes mellitus, L shoulder pain due to L1-2 vertebral compression fracture and mildly displaced ribs 5-8 posteriorly, fungal dermatitis, and urinary retention. PMHX: PMHX: Diabetes mellitus Fungal dermatitis Urinary retention Atrial flutter Paroxysmal supraventricular tachycardia Vaginal bleeding Hypomagnesemia Fracture of femoral neck, right Hyperkalemia Social History/Home Situation: Pt lives alone at [facility] [address] on the third floor with her parrot, rabbit, and cat. She notes there is a ramp and elevators to enter the apartment. Equipment Owned/DME: rollator, front-wheeled walker, cane Subjective: Pt notes that she had initially called emergency services as she could feel that her heart was ?acting up,? felt weak, and that she needed to get to the ER. She states that on the way out of her apartment she fell onto her back and hit her head. Now experiences back pain on the left side from her shoulder down. Notes that she has only had one fall within the past years. Pt states that she is no longer experiencing numbness and her weakness feels as if it is now equal to the right side. She states that she needs to get better to get home. Reports that she uses a cane when walking outside and a walker when she will be walking longer distances. She states that she is feeling much better today than she had been on Thursday and over the weekend. Objective: General Observation: suprapubic catheter and telemonitor in place. IV line in LUE Mental Status: alert and oriented x4 Pain: 7/10 Vital Signs: at rest: BP 138/87 mmHg, HR 90 bpm, SpO2 95% ROM: Right Upper Extremity: Shoulder Flexion WFL. Shoulder abduction WFL. Elbow flexion WFL. Wrist flexion WFL. Opening and closing of hand WFL. Left Upper Extremity: Shoulder Flexion WFL. Shoulder abduction WFL. Elbow flexion WFL. Wrist flexion WFL. Opening and closing of hand WFL. Right Lower Extremity: Hip flexion WFL. Hip abduction WFL. Knee flexion WFL. Ankle dorsiflexion WFL. Ankle plantarflexion WFL. Left Lower Extremity: Hip flexion WFL. Hip abduction WFL. Knee flexion WFL. Ankle dorsiflexion WFL. Ankle plantarflexion WFL. Strength: Right Upper Extremity: Shoulder flexors 3-/5. Shoulder abductors 3-/5. Elbow flexors 5/5. Elbow extensors 5/5. Utility Locate Technician strong. Left Upper Extremity: Shoulder flexors 3-/5. Shoulder abductors 3-/5. Elbow flexors 5/5. Elbow extensors 5/5. Utility Locate Technician strong. Right Lower Extremity: Hip flexors 4+/5. Hip abductors 5/5. Knee flexors 5/5. Knee extensors 4+/5. Ankle dorsiflexors 5/5. Ankle plantarflexors 5/5. Left Lower Extremity: Hip flexors 4+/5. Hip abductors 5/5. Knee flexors 5/5. Knee extensors 4+/5. Ankle dorsiflexors 5/5. Ankle plantarflexors 5/5. Sensation: Intact as to pain and pressure on bilateral lower extremities. Bed Mobility/Transfers: Rolling SBA Supine to sit SBA Sit to supine SBA Sit to stand SBA Stand to sit SBA Bed to chair CGA Chair to bed CGA Gait: Pt was only able tolerate ambulating 25 feet + 120 feet + 25 feet using a front-wheeled walker. Demonstrates decreased tiffany. CGA provided by PT with wheelchair follow by PT student. Pt required one standing rest break due to complaints of feeling ?winded? and one standing rest break to adjust the height of the walker. Pt denied chest pain, SOB, and dizziness with exertion. Vitals following exercise: BP 134/86, HR initially following exercise was 30bpm, but rapidly recovered and ranged from 85-95 bpm, SpO2 97%. Balance: Static Sitting: Normal Dynamic Sitting: Normal Static Standing: Fair Dynamic Standing: Fair Special Tests: Mobility Limitations Standardized Measure [facility] 6 clicks Basic Mobility Inpatient Short Form: Raw Score: 21 CMS Score: 29% deficit Informed Consent/Education: Patient instructed in purpose of PT consult and plan of care. Assessment: Pt is a 69-year-old female who presented to the ER on 07/14/2019 for left-sided weakness and left vision problems. She was admitted to the hospital with diagnoses of TIA, UTI, atrial flutter, and poorly controlled diabetes mellitus. Pt presents to physical therapy on initial evaluation with impairment level findings that limit her ability to safely return home. She does not appear to present with any neurological deficits at the time of initial evaluation, strength and sensation are equal bilaterally. Pt demonstrates improves in strength and endurance compared to PT evaluation on Thursday. She would continue to benefit from skilled physical therapy at this time. Patient presents with clinical signs and symptoms consistent with current/admitting diagnoses that have resulted to mobility limitations, gait instability, and generalized weakness, as demonstrated by the following impairment level findings: 1. Decreased strength to B LE and UE major muscle groups 2. Impaired standing balance 3. Impaired activity tolerance 4. Impaired cardiovascular endurance Impairments are contributing to the following functional limitations: 1. Dependent bed mobility skills 2. Increased dependence with transfers 3. Inability to safely ambulate without assistive device and physical assistance 4. Increase completion time for mobility ADL performance 5. Increased fall risk Patient is assessed as a [id number] moderate complexity based on the following: History: Pt is a 69-year-old female who presented to the ER on 07/14/2019 for left-sided weakness and left vision problems. She presents with impairment level finings. AM-PAC raw score of 21 with 29% deficit. She was transferred from med-surg on 07/15/2019 to the ICU for three days and transferred back to the unit on 07/17/2019 with diagnoses of atrial fibrillation and flutter, transient neurologic deficit, UTI, poorly controlled diabetes mellitus, L shoulder pain due to L1-2 vertebral compression fracture and mildly displaced ribs 5-8 posteriorly, fungal dermatitis, and urinary retention. Examination: Demonstrable impairment in strength, balance, and range of motion with underlying impairments and functional limitations as documented above Presentation: Evolving Decision Makin moderate complexity Goals: Goals X1 week 1. Supine-Sit independent 2. Sit-Supine independent 3. Sit-Stand independent 4. Stand-Sit independent 5. Bed-Chair independent 6. Chair-Bed independent 7. Independent gait on level surface with use of least restrictive device for at least 300 feet without report of pain nor dyspnea 8. Independent stair negotiation while holding onto bilateral rails for at least 5 steps without report of pain nor dyspnea 9. Independent with home exercise program 10. Good static and dynamic standing balance/tolerance Plan of Care/Treatment Plan: 1-2x/day, 7 days/week x 1 week. Plan of care has been reviewed with the INSTRUMENT TECH providing the service under Physical Therapy direction. Initiate Physical Therapy intervention for strengthening, bed mobility, transfers, gait, stairs, balance training, use of assistive device. DISCHARGE RECOMMENDATIONS: Discharge to home when medically cleared. Recommend home health physical therapy for continued strengthening and improved cardiovascular endurance. No assistive devices recommendations. TREATMENT CODE/TIME: 11236 x22 minutes beginning at 11:40 A.M. Thank you very much for this referral. Brianda Hawk, SPT Doctor of Physical Therapy Student [facility] Supervision provided by Sue Dejesus PT, DPT, CLT [facility]
--- NOTE | 2019-07-18 13:35 | W.PM.PROGNOT ---
Date of Service Date of service: 07/18/19 Time of Service: 13:36 Assessment and Plan Assessment and plan (1) Atrial fibrillation and flutter: Status: Acute Assessment and plan: Continue rate control with metoprolol XL and anticoagulation with Xarelto. 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 She is complete a work-up including carotid Doppler scan, MRI/MRA of the brain and echocardiogram. She has no evidence of acute stroke. She has microvascular disease by MRI and hemodynamically significant cerebral vascular occlusive disease. (3) UTI (urinary tract infection): Status: Acute Assessment and plan: Continue Levaquin for a total of 7 days for a UTI associated with chronic indwelling suprapubic catheter. Last dose will be July 20, 2019 Qualifiers: Urinary tract infection type: catheter-associated UTI Indwelling urinary catheter type: cystostomy catheter Encounter type: initial encounter Qualified Code(s): T83.510A - Infection and inflammatory reaction due to cystostomy catheter, initial encounter; N39.0 - Urinary tract infection, site not specified (4) Poorly controlled type 2 diabetes mellitus: Status: Acute Assessment and plan: I am going to resume her metformin and continue to treat her with basal bolus insulin while she is here in the hospital.. (5) Left shoulder pain: Status: Ruled-out Assessment and plan: Pain is under much better control. We found the root cause of her pain is due to multiple left-sided rib fractures ribs 5 through 8. She also has L1 and L2 vertebral compression fractures. I started her on calcitonin nasal spray along with vitamin D and calcium carbonate supplements. Tramadol seems to be controlling her pain pretty well for breakthrough pain she has oral Dilaudid.. Qualifiers: Chronicity: acute Qualified Code(s): M25.512 - Pain in left shoulder (6) Fungal dermatitis: Status: Acute Assessment and plan: Rx'ed clotrimazole/vitamin A/zinc ointment. Nursing requested nystatin powder for under her breasts. (7) Urinary retention: Status: Acute Assessment and plan: Suprapubic catheter exchanged on Thursday (8) Hypomagnesemia: Status: Acute Assessment and plan: Replete both PO (9) DVT prophylaxis: Status: Acute Assessment and plan: On therapeutic xarelto (10) Epigastric abdominal pain: Status: Resolved (11) Fracture, lumbar vertebra, compression: Status: Acute Assessment and plan: Patient has L1 and L2 vertebral compression fractures probably due to underlying osteoporosis and complicated by frequent falls. I will start her on calcitonin and calcium with vitamin D while here in the hospital. She should be evaluated with a bone DEXA scan as an outpatient and started on either a bisphosphonate or a parathyroid hormone analog. Qualifiers: Encounter type: initial encounter Lumbar vertebra fracture level: L1 Qualified Code(s): S32.010A - Wedge compression fracture of first lumbar vertebra, initial encounter for closed fracture (12) Multiple rib fractures involving four or more ribs: Status: Acute Assessment and plan: We will treat her vertebral back pain and multiple left-sided rib fractures with narcotic analgesics and Lidoderm patches. We will start her on calcitonin along with vitamin D and calcium carbonate. (13) Discharge planning issues: Status: Acute Assessment and plan: She will resume supports through [facility], [facility] and [facility] at time of discharge and coordination of transportation home through [facility] at time of discharge. We will plan for discharge tomorrow Subjective Subjective Patient reports: still having pain and pain is less Interval history since last seen: Patient is moving around a little better with physical therapy using a front wheel walker. She is still fearful of going home because of worried about having increased pain. She is currently receiving oral pain medications including tramadol and Dilaudid for severe pain in addition to the Lidoderm patches to treat her pain from her vertebral compression fractures and multiple rib fractures. I agreed to give her 1 more day of to continue with therapy as the patient lives alone and I want to be sure that she is able to perform her ADLs independently. She no longer drives but has a neighbor bring in groceries for but otherwise she does all of her own cooking and housekeeping. Exam Narrative Exam Narrative: Elderly female who is kyphotic sitting up in her chair has an indwelling suprapubic catheter which was changed during this admission. Lungs are clear to auscultation Her parathoracic chest wall tenderness is much better.. Heart is irregularly irregular at a controlled rate in the 90s. Abdomen is obese soft with normoactive bowel and nontender to palpation Legs without peripheral edema. Objective Objective Clinical Data: Abnormal lab results 07/18/19 07/18/19 Range/Units 06:05 06:05 Hgb 11.6 L (12.0-15.5) g/dL MCH 26.7 L (27.0-33.0) pg MCHC 31.8 L (32.0-36.0) g/dL RDW 15.9 H (11.7-14.6) % Absolute Neutrophils 7.58 H (1.2-6.7) k/cumm Absolute Monocytes 1.06 H (0.11-0.7) k/cumm BUN 24 H (7-18) mg/dL Creatinine 1.14 H (0.55-1.02) mg/dL Glucose 125 H D (74-106) mg/dL Vital Signs Temperature 36.0 C L 07/18/19 11:08 Temperature Source Tympanic 07/18/19 11:08 Pulse 77 07/18/19 11:08 Pulse Rhythm Irregular 07/18/19 10:40 Pulse 92 H 07/17/19 06:01 Respiratory Rate 18 07/18/19 11:08 Respiratory Effort Non-Labored 07/18/19 10:40 Respiratory Depth Shallow 07/18/19 10:40 Respiratory Pattern Bradypnea 07/18/19 10:40 Blood Pressure 124/87 07/18/19 11:08 Blood Pressure Mean 90 07/17/19 08:00 Blood Pressure Position Sitting 07/17/19 08:00 Pulse Oximetry 95 07/18/19 11:08 Oxygen Delivery Method Room Air 07/18/19 11:08 Oxygen Flow Rate 0 07/18/19 11:08 Pain Level 8 07/18/19 12:26 Comment 07/15/19 15:38 Intake & Output 07/17/19 07/18/19 07/18/19 23:59 11:59 23:59 Intake Total 729.167 / 2155.667 250 / 250 Output Total 2049 Balance 729.167 / 505.667 -1800 / -1800 Weight 93.8 kg Intake: IV 489.167 / 1591.667 10 Oral 240 / 564 240 / 240 Output: Urine 2049 Other: Urine Color Yellow Yellow Urine Appearance Cloudy Clear Comment Not drained at this time, clear yellow/lt carin urine in bag Stool Occult Blood Negative Stool Size Small Stool Characteristics Soft Liquid Laboratory Results WBC 10.62 k/cumm (4.4-10.8) 07/18/19 06:05 RBC 4.34 m/cumm (4.00-5.20) 07/18/19 06:05 Hgb 11.6 g/dL (12.0-15.5) L 07/18/19 06:05 Hct 36.5 % (36.0-46.0) 07/18/19 06:05 MCV 84.1 fL (80-95) 07/18/19 06:05 MCH 26.7 pg (27.0-33.0) L 07/18/19 06:05 MCHC 31.8 g/dL (32.0-36.0) L 07/18/19 06:05 RDW 15.9 % (11.7-14.6) H 07/18/19 06:05 Plt Count 396 x1000/uL (130-400) 07/18/19 06:05 MPV 10.7 fL (8.0-11.0) 07/18/19 06:05 Immature Gran % 0.5 % 07/18/19 06:05 Neutrophils % 71.4 07/18/19 06:05 Lymphocytes % 15.6 07/18/19 06:05 Monocytes % 10.0 07/18/19 06:05 Eosinophils % 2.4 07/18/19 06:05 Basophils % 0.1 07/18/19 06:05 Absolute Neutrophils 7.58 k/cumm (1.2-6.7) H 07/18/19 06:05 Absolute Lymphocytes 1.66 k/cumm (1.2-3.4) 07/18/19 06:05 Absolute Monocytes 1.06 k/cumm (0.11-0.7) H 07/18/19 06:05 Absolute Eosinophils 0.26 k/cumm (0.0-0.7) 07/18/19 06:05 Absolute Basophils 0.01 k/cumm (0.0-0.2) 07/18/19 06:05 ESR 45 mm/hr (0-30) H 07/16/19 13:25 Sodium 136 mmol/L (136-145) 07/18/19 06:05 Potassium 4.3 mmol/L (3.5-5.1) 07/18/19 06:05 Chloride 102 mmol/L (98-107) 07/18/19 06:05 Carbon Dioxide 24.9 mmol/L (21.0-32.0) 07/18/19 06:05 Anion Gap 9.1 mmol/L (3-11) 07/18/19 06:05 BUN 24 mg/dL (7-18) H 07/18/19 06:05 Creatinine 1.14 mg/dL (0.55-1.02) H 07/18/19 06:05 Estimated GFR/1.73 m2 46.99 (mL/min/1.73m2) 07/18/19 06:05 Glucose 125 mg/dL (74-106) H D 07/18/19 06:05 Hemoglobin A1c 7.9 % (3.8-5.6) H 07/15/19 07:00 Calcium 8.9 mg/dL (8.5-10.1) 07/18/19 06:05 Magnesium 1.9 mg/dL (1.8-2.4) 07/16/19 06:20 Total Bilirubin 0.3 mg/dL (0.2-1.0) 07/14/19 09:53 AST 22 U/L (15-37) 07/14/19 09:53 ALT 20 U/L (14-59) 07/14/19 09:53 Alkaline Phosphatase 58 U/L (46-116) 07/14/19 09:53 Troponin I < 0.05 ng/Ml (<0.06) 07/14/19 22:05 C-Reactive Protein 3.32 mg/dL (0.0-0.3) H 07/16/19 13:25 Total Protein 7.9 g/dL (6.4-8.2) 07/14/19 09:53 Albumin 3.5 g/dL (3.4-5.0) 07/14/19 09:53 Triglycerides 47 mg/dL (<150) 07/15/19 07:00 Total Cholesterol 127 mg/dL (<200) 07/15/19 07:00 LDL Cholesterol, Calc 56 mg/dL 07/15/19 07:00 HDL Cholesterol 62 mg/dL (40-60) 07/15/19 07:00 Vitamin B12 134 pg/mL (193-986) L 07/16/19 06:20 TSH 0.94 uIU/mL (0.36-3.74) 07/14/19 09:53 Free T4 1.20 ng/dL (0.76-1.46) 07/14/19 09:53 Procalcitonin 0.1 ng/mL 07/16/19 13:25 Urine Color Yellow (Yellow) 07/14/19 10:47 Urine Clarity Clear (Clear) 07/14/19 10:47 Urine pH 6.0 (5-8) 07/14/19 10:47 Ur Specific [place] 1.025 (1.005-1.025) 07/14/19 10:47 Urine Protein 30 mg/dL (Negative) H 07/14/19 10:47 Urine Ketones Negative mg/dL (Negative) 07/14/19 10:47 Urine Blood Small (Negative) H 07/14/19 10:47 Urine Nitrite Positive (Negative) H 07/14/19 10:47 Urine Bilirubin Negative (Negative) 07/14/19 10:47 Urine Urobilinogen 0.2 EU/dL (Up TO 0.2) 07/14/19 10:47 Ur Leukocyte Esterase Large (Negative) H 07/14/19 10:47 Urine RBC 0-2 HPF (0-2) 07/14/19 10:47 Urine WBC >50 HPF (0-5) H 07/14/19 10:47 Ur Epithelial Cells Few HPF (Negative) 07/14/19 10:47 Urine Crystals Negative HPF (Negative) 07/14/19 10:47 Urine Bacteria Moderate HPF (Negative) 07/14/19 10:47 Urine Casts Negative LPF (Negative) 07/14/19 10:47 Urine Mucus Negative (Negative) 07/14/19 10:47 Ur Culture Indicated? Yes 07/14/19 10:47 Urine Glucose Negative mg/dL (Negative) 07/14/19 10:47
--- NOTE | 2019-07-18 14:01 | PT.INTREAT ---
Date of service: 07/18/19 Time of Service: 14:02 PT Notes Visit Reasons: transient neurologic deficit, uti 07/18/19 SUBJECTIVE: Hope stating she is doing pretty good today. She thinks she will go home later today or tomorrow. OBJECTIVE: Seated in her chair. Agreeable to PT treatment. TRANSFERS Sit to stand: SBA Stand to sit: SBA GAIT Device: FWW Weight bearing. Full Assist: CGA Distance: 150' Deviation: No rest breaks required this afternoon. VITALS: 63-95 b/m, 95% Sa02. ASSESSMENT: Pt progressing with her mobility despite some discomfort through the left flank. No rest required this PM with pt increasing her gait distance and tiffany. PLAN: Continue current POC. Treatment time: 15 Nicike Spear PTA
--- NOTE | 2019-07-18 15:13 | CHAPLAIN ---
Hope was sitting up in a chair when I visited. She told me about her fall when the secondary school special ed teacher were with her. She said she just dropped while walking with an EMT in front of her and one behind her, at her apartment. She fractured some ribs and she said even breathing is sore. oHpe lives in the [facility]. She said she is not sure anyone will be in to visit her. I will continue to visit.
[2019-07-18] MEDS: Atorvastatin 20 MG TAB PO (20:22)
[2019-07-18] MEDS: levoFLOXacin 500 MG, levoFLOXacin 250 MG 750 MG PO (20:22)
[2019-07-18] MEDS: Metoprolol CR 100 MG TABCR 200 MG PO (20:22)
[2019-07-18] MEDS: Patch Removal 1 EACH TP (20:26)
[2019-07-18] MEDS: Insulin Glargine 300 UNITS/3 ML PEN 45 UNITS SC (21:37)
[2019-07-18] MEDS: HYDROmorphone 2 MG TAB PO (22:10)
[2019-07-19 04:00] VITALS: BP 132/75; PULSE 88; RESP 18; TEMP 35.9; O2SAT 95
[2019-07-19] MEDS: Acetaminophen 325 MG TAB PO ×2 (04:53→09:16)
[2019-07-19 07:27] VITALS: PULSE 78
[2019-07-19 07:30] VITALS: BP 136/85; PULSE 81; RESP 18; TEMP 36.9; O2SAT 96
[2019-07-19] MEDS: Rivaroxaban 10 MG TABLET 20 MG PO (09:00)
[2019-07-19] MEDS: metFORMIN 500 MG TAB 1000 MG PO (09:00)
[2019-07-19] MEDS: dilTIAZem CD 120 MG CAPCR 240 MG PO (09:00)
[2019-07-19] MEDS: Lidocaine 5% Patch 2 PATCH TP (09:00)
[2019-07-19] MEDS: Lisinopril 10 MG TAB PO (09:01)
[2019-07-19] MEDS: Cholecalciferol (Vitamin D3) 400 UNIT TAB PO (09:01)
[2019-07-19] MEDS: Calcium 600mg/Vit D 200U TAB 1 TAB PO (09:01)
[2019-07-19] MEDS: Magnesium Chloride 64 MG TABCR 128 MG PO (09:01)
[2019-07-19] MEDS: Aspirin E.C. 81 MG TABEC PO (09:01)
[2019-07-19] MEDS: Nystatin POWDER 60 GM JAR TP (09:02)
[2019-07-19] MEDS: Cyanocobalamin 1000 MCG/ML VIAL IM/SC (09:06)
[2019-07-19] MEDS: Calcitonin-Salmon, Synthetic 3.7 ML BTL NS (09:17)
[2019-07-19] MEDS: Insulin Aspart 300 UNITS/3 ML PEN SC ×2 (09:18→13:09)
[2019-07-19] MEDS: Omeprazole 20 MG CAPCR PO (09:49)
--- NOTE | 2019-07-19 10:44 | PTTR_ITS ---
Date of service: 07/19/19 Time of Service: 10:45 PT Notes Visit Reasons: transient neurologic deficit, uti 07/19/19 SUBJECTIVE: Hope stating she continues to do better. She thinks she may be going home today. OBJECTIVE: Seated in her chair. Agreeable to PT treatment. TRANSFERS Sit to stand: SBA Stand to sit: SBA GAIT Device: FWW Weight bearing: Full Assist: CGA Distance: 75'x2 Deviation: 1 sit rest break due to fatigue in her LE's ASSESSMENT: Doing well with her functional mobility today. No LOB during gait although does require one sit rest break due to fatigue in her LE's. Some sharp discomfort in her left flank with sit to stand transfers. PLAN: Continue current POC. Treatment time: 20 minutes [id number] Nickie Spear, BRIM WELT SEWING MACHINE OPERATOR
[2019-07-19 11:30] VITALS: BP 110/73; PULSE 89; RESP 20; TEMP 36.5; O2SAT 96
--- NOTE | 2019-07-19 14:28 | PT.INTREAT ---
Date of service: 07/19/19 Time of Service: 14:28 PT Notes Visit Reasons: transient neurologic deficit, uti 07/19/19 SUBJECTIVE: Complains of rib and and back discomfort with ambulation. Notes she is going to rehab to get stronger prior to going home. OBJECTIVE: Seated in her chair. Agreeable to PT treatment. TRANSFERS Sit to stand: SBA Stand to sit: SBA GAIT Device: FWW Weight bearing: Full Assist: CGA Distance: 75'x2 Deviation: 1 sit rest break ASSESSMENT: Continues to experience discomfort with ambulation although no LOB noted. Her tiffany is normalizing. PLAN: [facility] today. See discharge summary for details. Treatment time: 15 minutes [id number] Nickie Spear, FOREMAN SHIPPING DEPARTMENT
--- NOTE | 2019-07-19 16:29 | W.PM.DS.N ---
Date of service: 07/19/19 Time of Service: 16:29 DS: Diagnosis Discharge Diagnosis (1) Atrial fibrillation and flutter: Status: Acute Asessment and Plan: Patient developed a rapid ventricular response and required IV diltiazem briefly. Her metoprolol and Cardizem doses were increased. She continues on anticoagulation. (2) Transient neurologic deficit: Status: Acute Asessment and Plan: Patient had about 1 hour of transient right upper and lower extremity numbness and tingling. She had no recurrence of symptoms. Her work-up for cerebrovascular disease was negative including head CT, head MRI, carotid ultrasound, echocardiogram. Prolonged telemetry monitoring revealed atrial fibrillation. (3) UTI (urinary tract infection): Status: Acute Asessment and Plan: Urine culture grew out procidentia stuartii, greater than 100,000 colonies, E. coli, greater than 100,000 colonies, gram-negative chanell #3, less than 10,000 colonies. Sensitive to levofloxacin. She had her suprapubic catheter changed during this admission by Dr. Monaco. Antibiotics were stopped at the time of discharge. (4) Poorly controlled type 2 diabetes mellitus: Status: Acute (5) Left shoulder pain: Status: Ruled-out (6) Fungal dermatitis: Status: Acute (7) Urinary retention: Status: Acute Asessment and Plan: Chronic indwelling suprapubic catheter, changed during this admission. 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 She was found to have multiple fractures on the left fifth through eighth ribs. She was started on a lidocaine patch and tramadol with reasonably good pain control. Discharge Plan Disposition Patient Disposition: SNF (LEVEL 1) [facility] Condition: Stable Discharge Details Chief Complaint: CVA/TIA Clinical Impression: TIA (transient ischemic attack), UTI (urinary tract infection) Reason For Visit: transient neurologic deficit, uti, rib fractures Admit Date/Time: 07/15/19 10:00 Admit Provider: Amarilis May Attending Provider: Amarilis May Primary Care Provider: Raheem Lew ED Provider: [facility] Course Hospital Course: This is a 69-year-old woman who presented for admission on 07/15/2019. Her chief complaint was I could not get out of bed. She notified EMS and was being transported to the emergency room when she fell backwards onto the stretcher. She suffered some left-sided rib pain. In the emergency room she complained of numbness and tingling in her left upper extremity and left lower extremity as well as the left side of her face. She stated that her speech had been slurred as well. The symptoms lasted for about an hour and resolved completely by the time the patient arrived in the emergency room. She had a negative head CT. Her urine was positive and she was started empirically on ceftriaxone. She is followed by Dr. Fredis Monaco for chronic urinary retention. She has an indwelling suprapubic catheter. Dr. Monaco saw her on 07/15/2019 and changed her catheter. Her coverage was changed to levofloxacin. The patient had issues with atrial fibrillation with rapid ventricular response. She got transferred to the ICU for a Cardizem drip and modification of her beta-alicia dosing. Her work-up for the neurologic event was completely negative and was presumed due to a transient ischemic attack. Dr. Myers recommended aspirin 81 mg daily for secondary stroke prevention. She was found to have L1 and L2 vertebral compression fractures likely secondary to underlying osteoporosis and complicated by frequent falls. She was started on calcitonin and calcium with vitamin D. She continued to have some left shoulder pain and x-rays revealed multiple left-sided rib fractures on ribs 5 through 8. She was started on tramadol and a lidocaine patch. This seem to be limiting her mobility to some extent. Physical therapy worked with her extensively. Because she lives alone and has these new fractures the plan is to transition to [facility] and rehab for continued rehabilitation. Home Meds and New Rx's Prescriptions: New metoprolol succinate 100 mg Tablet Extended Release 24 Hr 200 mg PO QPM Qty: 60 RF: 0 calcium carbonate-vitamin D3 [Calcium 600 + D(3)] 600 mg(1,500mg) -200 unit Tablet 1 tab PO BID Qty: 60 RF: 0 aspirin 81 mg Tablet,Delayed Release (Dr/Ec) 81 mg PO DAILY Qty: 30 RF: 0 tramadol 50 mg Tablet 50 - 100 mg PO Q4H PRN PRN (Reason: pain) Qty: 60 RF: 0 calcitonin (salmon) 200 unit/actuation [place],Non-Aerosol 0 ml NS DAILY Qty: 30 RF: 0 lidocaine [Lidoderm] 5 % Adhesive Patch,Medicated 2 patch topical DAILY Qty: 60 RF: 0 diltiazem HCl 120 mg Capsule,Extended Release 24hr 240 mg PO QAM Qty: 60 RF: 0 Continued (DME) Depend Underwear For Women S-M 1 EACH misc 1 ea Miscellaneous TID Qty: 100 RF: 12 omeprazole 20 MG capsule,delayed release(DR/EC) 20 mg PO DAILY RF: 0 Xarelto 20 MG tablet 20 mg PO DAILY RF: 0 metformin [Glucophage] 1,000 MG tablet 1 tab PO BID RF: 0 magnesium oxide [MagOx] 400 MG tablet 400 mg PO DAILY Qty: 30 RF: 0 lisinopril 10 mg Tablet 10 mg PO DAILY RF: 0 Tresiba FlexTouch U-200 200 unit/mL (3 mL) Insulin Pen 45 unit SUBCUT DAILY RF: 0 atorvastatin 20 mg Tablet 20 mg PO DAILY RF: 0 insulin aspart U-100 [Novolog PenFill U-100 Insulin] 100 UNIT/ML cartridge 12 units Sub-Q BID RF: 0 Discontinued metoprolol succinate [Toprol XL] 100 MG tablet extended release 24 hr 100 mg PO BID RF: 0 diltiazem HCl 180 mg Capsule,Extended Release 24hr 180 mg PO DAILY RF: 0 Discharge Instructions Instructions: Rib Fracture (DC) Stand Alone Forms: Nursing Discharge Form Referrals: Raheem Lew NP [Primary Care Provider] - 07/25/19 9:00 am Activity:: Activity as Tolerated Equipment/Supplies:: No Equipment Needed Diet:: Carb Counting Discharge Orders Discharge Orders: Discharge Order (Routine); Ordered 07/19/19 Ordered By: Guillermo aPppas Discharge Data Discharge Date/Time-TO BE ENTERED AT DEPARTURE: 07/19/19 15:40 DS: Summary Status at Discharge Functional status at discharge: uses cane/walker Overall status at discharge: patient is not back to baseline Mental Status: mental status grossly normal Speech and Movement: speech and movement normal Mood: congruent mood Affect: normal affect Time Spent with Patient providing and/or coordinating discharge services: Greater than 30 minutes Exam Narrative Exam Narrative: On the day of discharge patient was sitting up in the chair with reasonable comfort. Most of her discomfort comes from movement such as getting up and down from the chair. She had no respiratory difficulties. Her lung exam was clear on the right and left. Her heart sounds were regular. Abdomen quite massively obese but nontender. Her lower extremities show fat replacement but no significant edema. Otherwise well perfused. Neurologically she had normal and equal upper motor strength and normal straight leg raising on the right and left lower extremities. No focal deficits were found. Psych Mental Status: mental status grossly normal Speech and Movement: speech and movement normal Mood: congruent mood Affect: normal affect DS: Data Vitals/I&O Vitals and I&O: Vital Signs Temperature 36.5 C 07/19/19 11:30 Temperature Source Tympanic 07/19/19 11:30 Pulse 89 07/19/19 11:30 Pulse Rhythm Irregular 07/19/19 08:40 Pulse 92 H 07/17/19 06:01 Respiratory Rate 20 07/19/19 11:30 Respiratory Effort Non-Labored 07/19/19 08:40 Respiratory Depth Normal 07/19/19 08:40 Respiratory Pattern Normal 07/19/19 08:40 Blood Pressure 110/73 07/19/19 11:30 Blood Pressure Mean 90 07/17/19 08:00 Blood Pressure Position Sitting 07/17/19 08:00 Pulse Oximetry 96 07/19/19 11:30 Oxygen Delivery Method Room Air 07/19/19 11:30 Oxygen Flow Rate 0 07/19/19 11:30 Pain Level 7 07/19/19 11:30 Comment 07/15/19 15:38 Intake & Output 07/18/19 07/19/19 07/19/19 23:59 11:59 23:59 Intake Total 250 / 500 450 / 930 480 / 930 Output Total 300 / 2350 650 / 650 Balance -50 / -1850 -200 / 280 480 / 280 Weight 94.8 kg Intake: IV 10 Oral 240 / 480 440 / 920 480 / 920 Output: Urine 300 / 2350 650 / 650 Other: Urine Color Light Anna Yellow Urine Appearance Clear Clear Stool Size Small Moderate Small Stool Characteristics Mucoid Soft Liquid Formed Data Completed and Pending Completed studies during hospitalization [Text1]: Chest x-ray 07/14/2019, brain MRI with MRA 07/14/2019, shoulder x-ray 07/14/2019, head CT 07/14/2019, carotid artery ultrasound 07/14/2019, echocardiogram 07/14/2019, rib x-rays 07/19/2019, abdominal pelvic CT 07/19/2019 [facility] Medical History Atrial fibrillation Cataracts, bilateral CHF (congestive heart failure) Diabetes Hyperlipidemia Hypertension (Chronic) PSVT (paroxysmal supraventricular tachycardia) (Acute) S/P right hip fracture (Acute) Urinary retention (Acute 03/31/16) Surgical History History of suprapubic catheter (Acute) Status post right hip replacement (Acute) Family History Other Diabetes Heart disease Hyperlipidemia Hypertension Stroke Social History Smoking/Tobacco Use Status: Former Tobacco Use Alcohol Intake: never Drug use: Never Substance use type: does not use Household members: none Do you feel safe at home: Yes Do you feel safe in your relationship?: Yes Additional Social history: Lives alone. [address] Does not drive.
--- NOTE | 2019-07-19 16:34 | INDS_ITS ---
Date of service: 07/19/19 Time of Service: 16:34 PT Notes Visit Reasons: transient neurologic deficit, uti, rib fractures Physical Therapy Inpatient Discharge summary Date: 07/19/2019 Dates of Service: 07/18/2019 through 07/19/2019 This is a clinical summary of care provided on the duration of dates listed above. No charge was made in the completion of this documentation. Referring Doctor: Sushant Torre M.D. PT Orders: PT CONSULT: Safety consult for D/C Precautions: Fall. Standard. Activity as tolerated. Patient Profile/Admitting Diagnosis: Pt is a 69-year-old female who presented to the ER on 07/14/2019 for left-sided weakness and left vision problems. She was transferred from [facility] on 07/15/2019 to the ICU for three days and transferred back to the unit on 07/17/2019 with diagnoses of atrial fibrillation and flutter, transient neurologic deficit, UTI, poorly controlled diabetes mellitus, L shoulder pain due to L1-2 vertebral compression fracture and mildly displaced ribs 5-8 posteriorly, fungal dermatitis, and urinary retention. PMHX: Diabetes mellitus Fungal dermatitis Urinary retention Atrial flutter Paroxysmal supraventricular tachycardia Vaginal bleeding Hypomagnesemia Fracture of femoral neck, right Hyperkalemia Social History/Home Situation: Pt lives alone at [address] on the third floor with her parrot, rabbit, and cat. She notes there is a ramp and elevators to enter the apartment. Equipment Owned/DME: rollator, front-wheeled walker, cane Subjective: Per [employer], pt is anxious about returning home as she is still experiencing pain. Objective: General Observation: suprapubic catheter and telemonitor in place. IV line in LUE Pain: 7/10 Vital Signs: at rest: BP 138/87 mmHg, HR 90 bpm, SpO2 95% ROM: Right Upper Extremity: Shoulder Flexion WFL. Shoulder abduction WFL. Elbow flexion WFL. Wrist flexion WFL. Opening and closing of hand WFL. Left Upper Extremity: Shoulder Flexion WFL. Shoulder abduction WFL. Elbow flexion WFL. Wrist flexion WFL. Opening and closing of hand WFL. Right Lower Extremity: Hip flexion WFL. Hip abduction WFL. Knee flexion WFL. Ankle dorsiflexion WFL. Ankle plantarflexion WFL. Left Lower Extremity: Hip flexion WFL. Hip abduction WFL. Knee flexion WFL. Ankle dorsiflexion WFL. Ankle plantarflexion WFL. Strength: Right Upper Extremity: Shoulder flexors 3-/5. Shoulder abductors 3-/5. Elbow flexors 5/5. Elbow extensors 5/5. Supervisor Treating And Pumping strong. Left Upper Extremity: Shoulder flexors 3-/5. Shoulder abductors 3-/5. Elbow flexors 5/5. Elbow extensors 5/5. Supervisor Treating And Pumping strong. Right Lower Extremity: Hip flexors 4+/5. Hip abductors 5/5. Knee flexors 5/5. Knee extensors 4+/5. Ankle dorsiflexors 5/5. Ankle plantarflexors 5/5. Left Lower Extremity: Hip flexors 4+/5. Hip abductors 5/5. Knee flexors 5/5. Knee extensors 4+/5. Ankle dorsiflexors 5/5. Ankle plantarflexors 5/5. Sensation: Intact as to pain and pressure on bilateral lower extremities. Bed Mobility/Transfers: Rolling SBA Supine to sit SBA Sit to supine SBA Sit to stand SBA Stand to sit SBA Bed to chair CGA Chair to bed CGA Gait: Pt was only able tolerate ambulating 75 feet FWB using a front-wheeled walker. Demonstrates decreased tiffany. CGA provided by [employer]. Required only one rest break. Balance: Static Sitting: Normal Dynamic Sitting: Normal Static Standing: Fair Dynamic Standing: Fair Assessment: Pt is a 69-year-old female who presented to the ER on 07/14/2019 for left-sided weakness and left vision problems. She was admitted to the hospital with diagnoses of TIA, UTI, atrial flutter, and poorly controlled diabetes mellitus. Pt presented to physical therapy on initial evaluation with impairment level findings that limited her ability to safely return home. She does not appear to present with any neurological deficits at the time of initial evaluation, strength and sensation were equal bilaterally. Pt demonstrated improvements in strength and endurance compared to her PT evaluation on the previous Thursday. She continues to require contact guard assistance with ambulation. Patient presented with clinical signs and symptoms consistent with current/admitting diagnoses that have resulted to mobility limitations, gait instability, and generalized weakness, as demonstrated by the following impairment level findings: 1. Decreased strength to B LE and UE major muscle groups 2. Impaired standing balance 3. Impaired activity tolerance 4. Impaired cardiovascular endurance Impairments continue to contribute to the following functional limitations: 1. Dependent bed mobility skills 2. Increased dependence with transfers 3. Inability to safely ambulate without assistive device and physical assistance 4. Increase completion time for mobility ADL performance 5. Increased fall risk Patient is assessed as a 04560 moderate complexity based on the following: History: Pt is a 69-year-old female who presented to the ER on 07/14/2019 for left-sided weakness and left vision problems. She presents with impairment level finings. AM-PAC raw score of 21 with 29% deficit. She was transferred from med- surg on 07/15/2019 to the ICU for three days and transferred back to the unit on 07/17/2019 with diagnoses of atrial fibrillation and flutter, transient neurologic deficit, UTI, poorly controlled diabetes mellitus, L shoulder pain due to L1-2 vertebral compression fracture and mildly displaced ribs 5-8 posteriorly, fungal dermatitis, and urinary retention. Examination: Demonstrable impairment in strength, balance, and range of motion with underlying impairments and functional limitations as documented above Presentation: Evolving Decision Makin moderate complexity Goals: Goals X1 week 1. Supine-Sit independent -NOT MET 2. Sit-Supine independent -NOT MET 3. Sit-Stand independent -NOT MET 4. Stand-Sit independent -NOT MET 5. Bed-Chair independent -NOT MET 6. Chair-Bed independent -NOT MET 7. Independent gait on level surface with use of least restrictive device for at least 300 feet without report of pain nor dyspnea -NOT MET 8. Independent stair negotiation while holding onto bilateral rails for at least 5 steps without report of pain nor dyspnea -NOT MET 9. Independent with home exercise program -NOT MET 10. Good static and dynamic standing balance/tolerance -NOT MET Plan of Care/Treatment Plan: 1-2x/day, 7 days/week x 1 week. Plan of care has been reviewed with the [employer] providing the service under Physical Therapy direction. Initiate Physical Therapy intervention for strengthening, bed mobility, transfers, gait, stairs, balance training, use of assistive device. DISCHARGE RECOMMENDATIONS: Discharge to home when medically cleared. Recommend home health physical therapy for continued strengthening and improved cardiovascular endurance. No assistive devices recommendations. TREATMENT CODE/TIME: 96918 x22 minutes beginning at 11:40 A.M. Thank you very much for this referral. Brianda Hawk, SPT Doctor of Physical Therapy Student [facility] Supervision provided by Sue Dejesus PT, DPT, CLT [facility] [place], [place]
--- NOTE | 2019-07-19 16:38 | CMDISCH_ITS ---
- If Service Date Differs Date of service: 07/19/19 Time of Service: 16:38 LACE Index Scoring Tool - Questions: Length of Stay (in days): 4 - 6 Acuity (Admit via E.D.?): Yes Comorbidities: Cerebrovascular Disease, Diabetes w/o Complication E.D. Visits: 3 - Answers: Total Score: 12 Risk of Readmission: High Risk Care Management Discharge Reason for Hospitalization: Transient neurologic deficit, UTI Discharge Plan: Hope will go to [facility] for a short, skilled stay prior to returning home. She will transport by [facility] w/c van. She is agreeable to the plan. Patient/Family Education Needs: Review discharge instructions with [facility] and [facility] staff, discussion of self care needs including Ask Me Three and goals of care. Services Needed at Discharge: [facility] Facility - MH Services (Omit if N/A) Current MH Services: [facility]
== END 2019-07-19 15:40 | disposition skilled nursing facility (03) | DRG 69 ==
LOC: ER 12:30 → MS 12:40 → ICU 07-17 10:00 → MS 07-18 12:00 → ICU 07-20 14:26
PROVIDERS: Internal Medicine; Admitting Provider Internal Medicine; Emergency Provider Registered Nurse Emergency; PCP Nurse Practitioner Family; Visit Provider Family Medicine
DX: G45.9 Transient cerebral ischemic attack, unspecified (principal); S32.010A Wedge compression fracture of first lumbar vertebra, initial encounter for closed fracture; S22.41XA Multiple fractures of ribs, right side, initial encounter for closed fracture; T83.510A Infection and inflammatory reaction due to cystostomy catheter, initial encounter; N39.0 Urinary tract infection, site not specified; Z16.11 Resistance to penicillins; Z16.19 Resistance to other specified beta lactam antibiotics; Z16.29 Resistance to other single specified antibiotic; I48.92 Unspecified atrial flutter; B96.89 Other specified bacterial agents as the cause of diseases classified elsewhere; B96.20 Unspecified Escherichia coli [E. coli] as the cause of diseases classified elsewhere; E83.42 Hypomagnesemia; W08.XXXA Fall from other furniture, initial encounter; Z87.440 Personal history of urinary (tract) infections; Z93.51 Cutaneous-vesicostomy status; R29.818 Other symptoms and signs involving the nervous system; I48.91 Unspecified atrial fibrillation; E11.65 Type 2 diabetes mellitus with hyperglycemia; M25.512 Pain in left shoulder; B36.9 Superficial mycosis, unspecified; R33.9 Retention of urine, unspecified; M81.0 Age-related osteoporosis without current pathological fracture; R29.6 Repeated falls; Z60.2 Problems related to living alone; Z79.4 Long term (current) use of insulin; E78.5 Hyperlipidemia, unspecified; I10 Essential (primary) hypertension; Z79.01 Long term (current) use of anticoagulants; I08.1 Rheumatic disorders of both mitral and tricuspid valves; Z71.3 Dietary counseling and surveillance
CPT/HCPCS: 36415; 36416; 51705; 70544; 80048; 80053; 80061; 82962; 84145; 85652; 87077; 93005; 93306; 96365; 96366; 97162; 97530; 99220; 99221; 99223; 99232; 99233; 99239; 99285; 99291; 70450; 70551; 71046; 71100; 72072; 73030; 74176; 81003; 81015; 82607; 83036; 83735; 84439; 84443; 84484; 85025; 86140; 87086; 87186; 93010; 93880; J0696; J1956; J2060; J3420; J3475; J3490

== ENCOUNTER → 2019-08-22 09:24 | Outpatient (BNVA) | payer MEDICARE, MEDICAID, SELFPAY | PROVIDERS: PCP Nurse Practitioner Family; Referring Provider Nurse Practitioner Family; Visit Provider Nurse Practitioner Gerontology | DX: R33.8 Other retention of urine (principal); R32 Unspecified urinary incontinence; Z46.6 Encounter for fitting and adjustment of urinary device | CPT/HCPCS: 51705; 99213 ==

== ENCOUNTER → 2019-10-11 11:47 | Outpatient (BNVA) | payer MEDICARE, MEDICAID, SELFPAY | PROVIDERS: PCP Nurse Practitioner Family; Referring Provider Nurse Practitioner Family; Visit Provider Nurse Practitioner Gerontology | DX: R33.8 Other retention of urine (principal); R32 Unspecified urinary incontinence; Z46.6 Encounter for fitting and adjustment of urinary device | CPT/HCPCS: 51705; 99213 ==

== ENCOUNTER → 2019-11-07 10:30 | Outpatient (BNVA) | payer MEDICARE, MEDICAID, SELFPAY | PROVIDERS: PCP Nurse Practitioner Family; Referring Provider Nurse Practitioner Family; Visit Provider Nurse Practitioner Gerontology | DX: R33.8 Other retention of urine (principal); R32 Unspecified urinary incontinence; Z46.6 Encounter for fitting and adjustment of urinary device | CPT/HCPCS: 51705; 99213 ==

== ENCOUNTER → 2019-12-06 09:44 | Outpatient (BNVA) | payer MEDICARE, MEDICAID, SELFPAY | PROVIDERS: PCP Nurse Practitioner Family; Referring Provider Nurse Practitioner Family; Visit Provider Nurse Practitioner Gerontology | DX: R33.8 Other retention of urine (principal); R32 Unspecified urinary incontinence; Z46.6 Encounter for fitting and adjustment of urinary device | CPT/HCPCS: 51705; 99213 ==

== ENCOUNTER → 2020-01-05 10:43 | Outpatient (BNVA) | payer MEDICARE, MEDICAID, SELFPAY | PROVIDERS: PCP Nurse Practitioner Family; Referring Provider Nurse Practitioner Family; Visit Provider Nurse Practitioner Gerontology | DX: R33.8 Other retention of urine (principal); R32 Unspecified urinary incontinence; Z46.6 Encounter for fitting and adjustment of urinary device | CPT/HCPCS: 51705; 99213 ==

== ENCOUNTER → 2020-01-30 09:24 | Outpatient (BNVA) | payer MEDICARE, MEDICAID, SELFPAY | PROVIDERS: PCP Nurse Practitioner Family; Referring Provider Nurse Practitioner Family; Visit Provider Nurse Practitioner Gerontology | DX: R33.8 Other retention of urine (principal); Z46.6 Encounter for fitting and adjustment of urinary device; R32 Unspecified urinary incontinence; E11.9 Type 2 diabetes mellitus without complications; I11.0 Hypertensive heart disease with heart failure; I50.9 Heart failure, unspecified | CPT/HCPCS: 51705; 99213 ==

== ENCOUNTER → 2020-02-21 09:20 | Outpatient (BNVA) | payer MEDICARE, MEDICAID, SELFPAY | PROVIDERS: PCP Nurse Practitioner Family; Referring Provider Nurse Practitioner Family; Visit Provider Nurse Practitioner Gerontology | DX: R33.8 Other retention of urine (principal); R32 Unspecified urinary incontinence; Z46.6 Encounter for fitting and adjustment of urinary device; E11.9 Type 2 diabetes mellitus without complications; I11.0 Hypertensive heart disease with heart failure; I50.9 Heart failure, unspecified | CPT/HCPCS: 51705; 99213 ==

== ENCOUNTER → 2020-03-19 09:18 | Outpatient (BNVA) | payer MEDICARE, MEDICAID, SELFPAY | PROVIDERS: PCP Nurse Practitioner Family; Referring Provider Nurse Practitioner Family; Visit Provider Nurse Practitioner Gerontology | DX: R33.8 Other retention of urine (principal); R32 Unspecified urinary incontinence; E11.9 Type 2 diabetes mellitus without complications; Z46.6 Encounter for fitting and adjustment of urinary device; I11.0 Hypertensive heart disease with heart failure; I50.9 Heart failure, unspecified | CPT/HCPCS: 51705; 99213 ==

== ENCOUNTER 2020-03-29 14:46 | Emergency (ER) | payer MEDICARE, MEDICAID, SELFPAY ==
[2020-03-29] VITALS (27 sets, daily range): BP systolic 44–161; BP diastolic 28–131; PULSE 60–89; RESP 11–22; TEMP 36.5–36.7; O2SAT 95–98
--- NOTE | 2020-03-29 14:45 | RT.EKG_ITS ---
APPROVED REPORT Exam: Resting ECG Patient Location: E HR:83 bpm ECG Measurements Heart Rate 83 AXIS NC [id number] P [id number] QRSd 84 QRS 14 QT 368 T 13 QTc 433 Conclusion Atrial fibrillation. Rate 83 Low voltage
--- NOTE | 2020-03-29 14:53 | ED.GENADUL_ITS ---
Discharge Plan Disposition Patient Disposition: HOME Condition: Stable Discharge Details Clinical Impression: Acute hyperglycemia Primary Care Provider: Raheem Lew ED Provider: Roni Isaac Home Meds and New Rx's Prescriptions: Continued (DME) Depend Underwear For Women S-M Misc 1 ea Miscellaneous TID Qty: 100 RF: 12 nystatin 100,000 unit/gram powder 1 applic Topical BID PRN (Reason: itching) Qty: 60 RF: 11 omeprazole 20 MG capsule,delayed release(DR/EC) 20 mg PO DAILY RF: 0 Xarelto 20 MG tablet 20 mg PO DAILY RF: 0 metformin [Glucophage] 1,000 MG tablet 1 tab PO BID RF: 0 magnesium oxide [MagOx] 400 MG tablet 400 mg PO DAILY Qty: 30 RF: 0 lisinopril 10 mg Tablet 10 mg PO DAILY RF: 0 Tresiba FlexTouch U-200 200 unit/mL (3 mL) Insulin Pen 45 unit SUBCUT DAILY RF: 0 atorvastatin 20 mg Tablet 20 mg PO DAILY RF: 0 insulin aspart U-100 [Novolog PenFill U-100 Insulin] 100 UNIT/ML cartridge 12 units Sub-Q BID RF: 0 metoprolol succinate 100 mg Tablet Extended Release 24 Hr 200 mg PO QPM Qty: 60 RF: 0 calcium carbonate-vitamin D3 [Calcium 600 + D(3)] 600 mg(1,500mg) -200 unit Tablet 1 tab PO BID Qty: 60 RF: 0 aspirin 81 mg Tablet,Delayed Release (Dr/Ec) 81 mg PO DAILY Qty: 30 RF: 0 calcitonin (salmon) 200 unit/actuation [place],Non-Aerosol 0 ml NS DAILY Qty: 30 RF: 0 lidocaine [Lidoderm] 5 % Adhesive Patch,Medicated 2 patch topical DAILY Qty: 60 RF: 0 diltiazem HCl 120 mg Capsule,Extended Release 24hr 240 mg PO QAM Qty: 60 RF: 0 Discharge Instructions Instructions: Diabetic Hyperglycemia (ED) Additional Instructions: Your medication refills are ready for pickup at [facility] pharmacy, open till 8pm. Moving forward, your prescriptions have been switched to [facility] so that they may be delivered. [place] eat an evening meal. 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 Follow-up with Raheem Lew in the office next week. We will ask care management to arrange a follow-up appointment for you. Return to the ER for any acute concerns. Medical Decision Making 69-year-old female diabetic who has a history of A. fib for which he is anticoagulated. She states she ran out of her medications and is only been taking her insulin as prescribed, but not taking her heart medications or metformin. She felt generally weak and foggy headed this morning. She called her primary care office and had refills phoned to her pharmacy. Due to some question of slurred speech EMS was called and the patient was transported to the ED. She arrives to the ER slightly hypertensive but engaging and in no acute distress without evidence of focal neurologic deficit. Likely this is related to hyperglycemia and may have some associated metabolic changes. Must exclude TIA. Patient IV access established, given fluid bolus, peripheral laboratory testing, EKG, screen chest x-ray and CT scan of the head. Patient has a white count of 8, hematocrit 36, platelets are 429. Probable pseudohyponatremia with a glucose of 575 and sodium 132. BUN is 26 and creatinine 1.49. Hemoglobin A1c 12.8%. CT scan of the head without acute findings. Chest x-ray without acute findings. Patient given 20 units regular insulin for hyperglycemia without anion gap. She was seen in consultation by care management and arrangements made to ease her ability to get her medications in the community. After insulin and fluids, patient's glucose improving to 300s. She feels dramatically better and has no complaints. We will arrange outpatient follow-up for her for recheck as she may need tighter long-term control of her diabetes.. Lab Data Lab results reviewed: Yes I reviewed the patient's lab results. Labs: Laboratory Results - last 24 hr 03/29/20 03/29/20 03/29/20 14:50 14:50 14:50 WBC 8.23 RBC 4.43 Hgb 11.5 Hct 36.5 MCV 82.4 MCH 26.0 L MCHC 31.5 L RDW 14.1 Plt Count 429 H MPV 10.9 Immature Gran % 0.4 Neutrophils % 60.1 Lymphocytes % 26.6 Monocytes % 10.7 Eosinophils % 1.6 Basophils % 0.6 Nucleated RBC % 0 Absolute Neutrophils 4.95 Absolute Lymphocytes 2.19 Absolute Monocytes 0.88 H Absolute Eosinophils 0.13 Absolute Basophils 0.05 Sodium 132 L Potassium 4.6 Chloride 97 L Carbon Dioxide 24.7 Anion Gap 10.3 BUN 26 H Creatinine 1.49 H Estimated GFR/1.73 m2 34.50 Glucose 575 H* Hemoglobin A1c 12.8 H Calcium 9.1 Magnesium 1.7 L Total Bilirubin 0.3 AST 11 L ALT 18 Alkaline Phosphatase 62 Troponin I < 0.05 Total Protein 8.0 Albumin 3.7 Urine Color Urine Clarity Urine pH Ur Specific [place] Urine Protein Urine Ketones Urine Blood Urine Nitrite Urine Bilirubin Urine Urobilinogen Ur Leukocyte Esterase Urine Glucose 03/29/20 15:25 WBC RBC Hgb Hct MCV MCH MCHC RDW Plt Count MPV Immature Gran % Neutrophils % Lymphocytes % Monocytes % Eosinophils % Basophils % Nucleated RBC % Absolute Neutrophils Absolute Lymphocytes Absolute Monocytes Absolute Eosinophils Absolute Basophils Sodium Potassium Chloride Carbon Dioxide Anion Gap BUN Creatinine Estimated GFR/1.73 m2 Glucose Hemoglobin A1c Calcium Magnesium Total Bilirubin AST ALT Alkaline Phosphatase Troponin I Total Protein Albumin Urine Color Yellow Urine Clarity Clear Urine pH 5.5 Ur Specific [place] 1.010 Urine Protein Negative Urine Ketones Negative Urine Blood Negative Urine Nitrite Negative Urine Bilirubin Negative Urine Urobilinogen 0.2 Ur Leukocyte Esterase Negative Urine Glucose 500 H HPI General Mode of arrival: EMS . Date/Time Provider Initiated Documentation: 03/29/20 15:01 . Limitations to Documentation: no limitations . Information obtained by: patient and EMS . History of Present Illness 69 year old F presents to the emergency department with the chief complaint of Elevated blood glucose, ran out of medicines, head feels foggy, described as mild and similar to prior episodes, Quality is described as dull and constant, and is localized to the head. Patient reports no radiation. Patient started experiencing this hour(s) and it has been constant. No relieving factors improve symptom(s), No exacerbating factors reported . Patient notes denies headaches, shortness of breath and syncope. Patient did receive the following treatments prior to arrival, none Related Data Home Medications Medication Instructions Recorded Confirmed omeprazole 20 mg PO DAILY 09/22/12 03/29/20 Xarelto 20 mg PO DAILY 04/20/15 03/29/20 metformin [Glucophage] 1 tab PO BID 11/24/16 03/29/20 magnesium oxide [MagOx] 400 mg PO DAILY #30 tab 05/19/17 03/29/20 atorvastatin 20 mg PO DAILY 05/16/18 03/29/20 insulin aspart U-100 [Novolog 12 units SUB-Q BID 05/16/18 03/29/20 PenFill U-100 Insulin] Tresiba FlexTouch U-200 45 unit SUBCUT DAILY 05/12/19 03/29/20 lisinopril 10 mg PO DAILY 05/12/19 03/29/20 aspirin 81 mg PO DAILY #30 tab 07/19/19 03/29/20 calcitonin (salmon) 0 ml NS DAILY #30 ml 07/19/19 03/29/20 calcium carbonate-vitamin D3 1 tab PO BID #60 tab 07/19/19 03/29/20 [Calcium 600 + D(3)] diltiazem HCl 240 mg PO QAM #60 cap 07/19/19 03/29/20 lidocaine [Lidoderm] 2 patch TOPICAL DAILY #60 ea 07/19/19 03/19/20 metoprolol succinate 200 mg PO QPM #60 tab 07/19/19 03/29/20 diaper,brief,adult,disposable #100 ea 10/11/19 03/19/20 nystatin 100,000 unit/gram topical 1 applic TOPICAL BID PRN #60 gm 10/11/19 03/29/20 powder Previous Rx's Medication Instructions Recorded magnesium oxide [MagOx] 400 mg PO DAILY #30 tab 05/19/17 aspirin 81 mg PO DAILY #30 tab 07/19/19 calcitonin (salmon) 0 ml NS DAILY #30 ml 07/19/19 calcium carbonate-vitamin D3 1 tab PO BID #60 tab 07/19/19 [Calcium 600 + D(3)] diltiazem HCl 240 mg PO QAM #60 cap 07/19/19 lidocaine [Lidoderm] 2 patch TOPICAL DAILY #60 ea 07/19/19 metoprolol succinate 200 mg PO QPM #60 tab 07/19/19 diaper,brief,adult,disposable #100 ea 10/11/19 nystatin 100,000 unit/gram topical 1 applic TOPICAL BID PRN #60 gm 10/11/19 powder Allergies Allergy/AdvReac Type Severity Reaction Status Date / Time trazodone AdvReac Intermediate NIGHTMARES Verified 03/29/20 14:59 General ARGENIS: 2 Review of Systems Narrative: Ran out of medications except for insulin. No other significant pain. No fall, no headache. 6 systems reviewed and otherwise negative [facility] Medical History (Updated 03/29/20 @ 17:19 by Roni Isaac MD) Atrial fibrillation Cataracts, bilateral CHF (congestive heart failure) Diabetes Hyperlipidemia Hypertension PSVT (paroxysmal supraventricular tachycardia) S/P right hip fracture Urinary retention (03/31/16) Surgical History History of suprapubic catheter Status post right hip replacement Family History Other Diabetes Heart disease Hyperlipidemia Hypertension Stroke Social History Smoking/Tobacco Use Status: Former Tobacco Use Alcohol Intake: never Drug use: Never Substance use type: does not use Household members: none Do you feel safe at home: Yes Do you feel safe in your relationship?: Yes Additional Social history: Lives alone[address] Does not drive. Exam Narrative Exam Narrative: GEN: awake, alert, oriented 3. Pleasant, well groomed, interactive. HEAD: Normocephalic, atraumatic ENT: Mucous membranes moist, oropharynx unremarkable, External ear exam unremarkable EYES: PERRL, EOMI NECK: Full ROM, no WAI, no menigismus CHEST/RESP: Nontender, clear to auscultation bilateral, no wheeze/rhonchi/rales CARDIOVASCULAR: Irregularly irregular, no murmur, rub valencia. 2+ Rad pulse bilateral ABDOMEN: Soft, nontender, no mass. +Bowel sounds EXT: Full ROM, no edema, no rash Neuro: Grossly normal neurologic exam, conversant, interactive. No focal neurologic deficits appreciated. Psych: Speech fluent, thoughts congruent, affect normal
[2020-03-29 15:01] LABS: Abs Immature Grans 0.03 10^3/uL (0.0-0.06); Absolute Basophil Count 0.05 10^3/uL (0.0-0.2); Absolute Eosinophil Count 0.13 10^3/uL (0.0-0.7); Absolute Lymphocyte Count 2.19 10^3/uL (1.2-3.4); Absolute Monocyte Count 0.88 10^3/uL (0.1-0.8); Absolute Neutrophil Count 4.95 10^3/uL (1.2-6.7); Basophils % 0.6; Eosinophils % 1.6; HCT 36.5 % (36.0-46.0); HGB 11.5 g/dL (11.2-15.7); Immature Grans % 0.4; Lymphocytes % 26.6; MCHC 31.5 % (32.0-36.0); MCV 82.4 fL (80-95); MPV 10.9 fL (8.0-11.0); Monocytes % 10.7; Neutrophils % 60.1; Nucleated RBC 0 %; Platelet Count 429 10^3/uL (130-400); RBC 4.43 10^6/uL (3.93-5.22); RDW 14.1 % (11.7-14.6); RDW-SD 42.3 fL; WBC 8.23 10^3/uL (4.4-10.8)
[2020-03-29] MEDS: Normal Saline 1,000 ML 1000 ML IV (15:10)
[2020-03-29 15:16] LABS: ALT 18 U/L (14-59); AST 11 U/L (15-37); Albumin 3.7 g/dL (3.4-5.0); Alkaline Phosphatase 62 U/L (46-116); Anion Gap 10.3 mmol/L (3-11); BUN 26 mg/dL (7-18); Bilirubin, Total 0.3 mg/dL (0.2-1.0); CO2 24.7 mmol/L (21.0-32.0); CREATININE 1.49 mg/dL (0.55-1.02); Calcium 9.1 mg/dL (8.5-10.1); Chloride 97 mmol/L (98-107); Magnesium 1.7 mg/dL (1.8-2.4); Potassium 4.6 mmol/L (3.5-5.1); Sodium 132 mmol/L (136-145)
--- NOTE | 2020-03-29 15:30 | CMPROGNOTE_ITS ---
- If Service Date Differs Date of service: 03/29/20 Time of Service: 15:30 Care Management Progress Note CM meets with Hope at the request of JENNIFER Barry nurse. Hope reports she is having difficulty getting her prescriptions picked up from the [facility]. She doesn't drive and the nearest family member lives 40 miles away. Hope expresses a desire to change her pharmacy from [facility] to [facility] as they deliver. We discuss that in the meantime, she can set up rides with [facility] to the pharmacy. She states she frequently uses [facility] for rides to and from doctor's appointments and knows how to contact them.
--- NOTE | 2020-03-29 15:31 | NUR.NOTE ---
Nursing Note: Care management has seen pt- pt states wants to change pharmacy for any subsequent Rx fills to [facility] in [place] so that she can get delivery. UBALDO aware, spoke with Jolie - [facility] nurse.
[2020-03-29 15:36] LABS: Bilirubin Negative (Negative); Blood Negative (Negative); Clarity Clear (Clear); Glucose 500 mg/dL (Negative); Ketones Negative (Negative); Leukocyte Esterase Negative (Negative); Nitrite Negative (Negative); Urobilinogen 0.2 EU/dL (Up TO 0.2); pH 5.5 (5-8)
[2020-03-29 15:38] LABS: Glucose 575 mg/dL (74-106); Hemoglobin A1C 12.8 % (<5.7); Troponin I < 0.05 ng/mL (<0.06)
--- NOTE | 2020-03-29 15:45 | DI.RAD_ITS ---
EXAM: XR CHEST 2V PA LATERAL CLINICAL HISTORY: weakness, elev blood glucose TECHNIQUE: COMPARISON: CR XR CHEST 2V PA LATERAL from 07/14/2019 CR,XR XR RIBS ONLY LT from 07/16/2019 FINDINGS: Heart is not enlarged. Lungs are clear. There are multiple old healed left rib fractures. No pleur al effusion seen IMPRESSION: Negative examination of the chest. RADIATION DOSE DELIVERED: Total DLP
[2020-03-29] MEDS: Insulin REGULAR-Human 100 UNITS/ML UNIT 10 UNITS IV ×2 (15:52→17:01)
--- NOTE | 2020-03-29 17:06 | NUR.NOTE ---
Nursing Note: Referral faxed to PCP for follow up next week. Ciera Hutchins
[2020-03-29] MEDS: Normal Saline Flush 10 ML SYR IVP (17:09)
--- NOTE | 2020-03-29 18:35 | DI.CT_ITS ---
EXAM: CT HEAD WO CLINICAL HISTORY: slurred speech, elev glucose, hx tia TECHNIQUE: COMPARISON: CT CT HEAD WO from 07/14/2019 FINDINGS: Noncontrast cranial CT was performed. There is mild generalized cerebral atrophy. There is no evide nce of acute intracranial hemorrhage, mass effect, midline shift. The orbital and temporal bone stru ctures appear intact. Visualized mastoid air cells and paranasal sinuses are clear. IMPRESSION: No evidence of acute intracranial process. RADIATION DOSE DELIVERED: 709.45mGy.cm Total DLP
== END 2020-03-29 18:16 | disposition home or self-care (01) ==
PROVIDERS: Emergency Provider Emergency Medicine; PCP Nurse Practitioner Family
DX: E11.65 Type 2 diabetes mellitus with hyperglycemia (principal); Z76.0 Encounter for issue of repeat prescription; Z79.4 Long term (current) use of insulin; Z79.01 Long term (current) use of anticoagulants; I48.91 Unspecified atrial fibrillation
CPT/HCPCS: 36415; 36416; 80053; 82962; 93005; 96361; 96374; 96376; 99285; 70450; 71046; 81003; 83036; 83735; 84484; 85025; 93010; 99284

== ENCOUNTER → 2020-04-10 09:19 | Outpatient (BNVA) | payer MEDICARE, MEDICAID, SELFPAY | PROVIDERS: PCP Nurse Practitioner Family; Referring Provider Nurse Practitioner Family; Visit Provider Nurse Practitioner Gerontology | DX: R33.8 Other retention of urine (principal); R32 Unspecified urinary incontinence; Z46.6 Encounter for fitting and adjustment of urinary device; I11.0 Hypertensive heart disease with heart failure; I50.9 Heart failure, unspecified | CPT/HCPCS: 51705; 99213 ==

== ENCOUNTER → 2020-05-30 09:21 | Outpatient (BNVA) | payer MEDICARE, MEDICAID, SELFPAY | PROVIDERS: PCP Nurse Practitioner Family; Referring Provider Nurse Practitioner Family; Visit Provider Nurse Practitioner Gerontology | DX: R33.8 Other retention of urine (principal); R32 Unspecified urinary incontinence; Z43.5 Encounter for attention to cystostomy | CPT/HCPCS: 51705; 99213 ==

== ENCOUNTER → 2020-07-04 12:13 | Outpatient (BNVA) | payer OTHER, MEDICAID, SELFPAY | PROVIDERS: PCP Nurse Practitioner Family; Referring Provider Nurse Practitioner Family; Visit Provider Nurse Practitioner Gerontology | DX: R33.9 Retention of urine, unspecified (principal); R32 Unspecified urinary incontinence; Z43.5 Encounter for attention to cystostomy | CPT/HCPCS: 51705 ==

== ENCOUNTER 2020-07-08 19:06 | Observation (INO) | payer OTHER, MEDICAID, SELFPAY ==
[2020-07-08] VITALS (33 sets, daily range): BP systolic 104–138; BP diastolic 55–79; PULSE 49–101; RESP 8–21; TEMP 36.1–36.5; O2SAT 94–98
--- NOTE | 2020-07-08 19:09 | ED.GENADUL_ITS ---
Discharge Plan Disposition Patient Disposition: [facility] INPATIENT Condition: Fair Discharge Details Chief Complaint: GI Bleed Clinical Impression: MELVA (acute kidney injury), GI bleed, Hyperkalemia, Atrial flutter Admit Date/Time: 07/08/20 22:03 Admit Provider: Sunil Borrero Attending Provider: Sunil Borrero Primary Care Provider: Raheem Lew ED Provider: Yuliana Braxton Medical Decision Making Patient is a pleasant 70-year-old female presenting today with chief complaint of diarrhea and rectal bleeding. She reports that she had diarrhea for the past 3 days. At baseline, patient reports that she had 5 bowel movements a per day. She reports that this is increased approximately 9/day. Describes it as soft but nonwatery. She reports that today she started noting some bright red blood per rectum. Some of the past few hours. States that she does have some the leaks out of her rectum when she is not having a bowel movement. Patient is anticoagulated as she has had TIAs historically and is in atrial fibrillation. She denies feeling lightheaded or weak. Unclear how much blood has passed. No clots. Reports that she does have some rectal pain but this seems to be primarily elicited with wiping. She denies any fevers or chills. No cough. No chest pain or shortness of breath. No recent antibiotics. On exam, patient is resting comfortably. She appears to be no acute distress. Patient is known to have a low pulse at 58 which is irregularly irregular. Patient is on a beta-alicia. States that her blood pressure and pulse are typically low. Abdomen is benign. She is denying any abdominal pain at this time. She does have a suprapubic catheter which appears to be normal. She denies any feelings of UTI. Rectal exam reveals some raw and irritated skin. We will apply a barrier cream to this area. She does have blood-tinged stool on rectal exam. I do feel a internal hemorrhoid. No external hemorrhoids. I discussed the findings with the patient. Unclear how much blood she has passed at this point. Plan to obtain a CBC to evaluate for potential anemia. She has been having diarrhea for the past 3 days loss obtain a CMP look for any electrolyte abnormalities and give a small 500 cc bolus. Not see any evidence to suggest an acute surgical abdomen. Patient does not have bleeding or bruising elsewhere and she denies any easy bruising historically. Labs reviewed. Patient has a white count of 12.14. She is slightly anemic with hemoglobin of 10.4. She has been anemic like this historically but her most recent reading last fall was 11.5. Patient's BUN is elevated 28 with a creatinine of 1.9. Patient baseline creatinine is around 1.3. I discussed the findings with the patient. Given her age and comorbidities, I am concerned for potential mass or other source of bleeding. Will obtain a noncontrast CT of her abdomen for further evaluation. FINDINGS: Tubes, catheters and devices: There is a suprapubic catheter in place with its tip within the anterior aspect of the bladder lumen. Liver: Normal. No mass. Gallbladder and bile ducts: Normal. No calcified stones. No ductal dilation. Pancreas: The pancreas is moderately atrophic but appears otherwise unremarkable without focal lesion or evidence of acute inflammation. Spleen: Normal. No splenomegaly. Adrenal glands: Normal. No mass. Kidneys and ureters: There is a 2.9 cm right lower pole renal cyst as well as a sub cm low-dense right upper pole renal lesion which is too small to characterize but likely represents a cyst. There are no urinary tract stones. There is no hydronephrosis or hydroureter. Stomach and bowel: There is no evidence for small or large bowel inflammation. Again noted are multiple prominent air-filled loops of small bowel, which could reflect some degree of ileus. There is no evidence obstruction. Appendix: The appendix is well visualized and appears. Intraperitoneal space: Unremarkable. No free air. No significant fluid collection. Vasculature: There is mild atherosclerotic calcification of the abdominal aorta iliac arteries without aneurysm formation. Lymph nodes: Unremarkable. No enlarged lymph nodes. Urinary bladder: Bladder contains a small to moderate amount of urine. There may be mild diffuse bladder wall thickening. Reproductive: Unremarkable as visualized. Bones/joints: The prior left posterior 8th and 9th rib fractures appear mostly healed, as seen on axial images 4 and 10, series 2. There is a moderate anterior wedge compression fracture the L1 vertebra with 34% loss of anterior vertebral body height. The fracture appears subacute. Again noted is moderate facet arthrosis of lower lumbar spine with multilevel [id number] spondylosis of the lower thoracic and upper lumbar spine. Soft tissues: Unremarkable. IMPRESSION: 1. No acute process within the abdomen or pelvis identified. 2. The suprapubic catheter appears in good position. There may be mild diffuse bladder wall thickening which can be seen in the setting of cystitis. Recommend clinical correlation. 3. New moderate compression fracture of the L1 vertebra which appears subacute. 4. Prior left posterior rib fractures now appear mostly healed. Discussed these findings with the patient. She and I discussed disposition at length. She lives alone and I am concerned that she is anticoagulated has had bright red blood per rectum today. She does feel a small amount of blood near her rectum at this time has not had any bowel movements since being here. She is hemodynamically stable. She does not have any orthostatic hypotension on testing by nursing staff. I feel that patient would best be served with inp atient observation. She agrees to this plan. Consulted with Dr. Borrero who agrees to admission. HPI General Mode of arrival: EMS . Date/Time Provider Initiated Documentation: 07/08/20 19:08 . Limitations to Documentation: no limitations . Information obtained by: patient, EMS and RN notes reviewed . History of Present Illness 70 year old F presents to the emergency department with the chief complaint of diarrhea and recal bleeding, described as moderate, Quality is described as other (denies any pain currently), and is localized to the buttocks (states that she has some pain from frequent wiping). Patient reports no radiation. Patient started experiencing this day(s) (diarrhea x 3 days, BRBPR today) and it has been intermittent. No relieving factors improve symptom(s), No exacerbating factors reported . Patient notes denies chest pain, cough, fever/chills, headaches, loss of appetite, nausea/vomiting, shortness of breath, syncope and weakness. Patient did receive the following treatments prior to arrival, none Related Data Home Medications Medication Instructions Recorded Confirmed omeprazole 20 mg PO DAILY 09/22/12 07/08/20 Xarelto 20 mg PO DAILY 04/20/15 07/08/20 metformin [Glucophage] 1 tab PO BID 11/24/16 07/08/20 magnesium oxide [MagOx] 400 mg PO DAILY #30 tab 05/19/17 07/08/20 atorvastatin 20 mg PO DAILY 05/16/18 07/08/20 insulin aspart U-100 [Novolog 12 units SUB-Q BID 05/16/18 07/08/20 PenFill U-100 Insulin] Tresiba FlexTouch U-200 45 unit SUBCUT DAILY 05/12/19 07/08/20 lisinopril 10 mg PO DAILY 05/12/19 07/08/20 aspirin 81 mg PO DAILY #30 tab 07/19/19 07/08/20 calcitonin (salmon) 0 ml NS DAILY #30 ml 07/19/19 07/08/20 calcium carbonate-vitamin D3 1 tab PO BID #60 tab 07/19/19 07/08/20 [Calcium 600 + D(3)] diltiazem HCl 240 mg PO QAM #60 cap 07/19/19 07/08/20 lidocaine [Lidoderm] 2 patch TOPICAL DAILY #60 ea 07/19/19 07/08/20 metoprolol succinate 200 mg PO QPM #60 tab 07/19/19 07/08/20 diaper,brief,adult,disposable #100 ea 10/11/19 05/30/20 nystatin 100,000 unit/gram topical 1 applic TOPICAL BID PRN #60 gm 10/11/19 07/08/20 powder Previous Rx's Medication Instructions Recorded magnesium oxide [MagOx] 400 mg PO DAILY #30 tab 05/19/17 aspirin 81 mg PO DAILY #30 tab 07/19/19 calcitonin (salmon) 0 ml NS DAILY #30 ml 07/19/19 calcium carbonate-vitamin D3 1 tab PO BID #60 tab 07/19/19 [Calcium 600 + D(3)] diltiazem HCl 240 mg PO QAM #60 cap 07/19/19 lidocaine [Lidoderm] 2 patch TOPICAL DAILY #60 ea 07/19/19 metoprolol succinate 200 mg PO QPM #60 tab 07/19/19 diaper,brief,adult,disposable #100 ea 10/11/19 nystatin 100,000 unit/gram topical 1 applic TOPICAL BID PRN #60 gm 10/11/19 powder Allergies Allergy/AdvReac Type Severity Reaction Status Date / Time trazodone AdvReac Intermediate NIGHTMARES Verified 07/08/20 19:15 General ARGENIS: 3 Review of Systems Constitutional Constitutional: Reports as per HPI, Denies chills, Denies fatigue, Denies fever(s) and Denies headache(s) ENT Ears, Nose, Mouth, and Throat: Denies headache(s) Cardiovascular Cardiovascular: Reports as per HPI, Denies chest pain and Denies dyspnea Respiratory Respiratory: Reports as per HPI, Denies cough and Denies dyspnea Gastrointestinal Gastrointestinal: Reports as per HPI Musculoskeletal Musculoskeletal: Reports as per HPI and Denies back pain Integumentary/Breasts Skin/Breast: Reports as per HPI and Denies rash Neurologic Neurologic: Reports as per HPI and Denies headache(s) Endocrine Endocrine: Denies fatigue [facility] Medical History (Updated 07/08/20 @ 23:24 by KATHLEEN Larsen) Atrial fibrillation Cataracts, bilateral CHF (congestive heart failure) Diabetes Hyperlipidemia Hypertension PSVT (paroxysmal supraventricular tachycardia) S/P right hip fracture Urinary retention (03/31/16) Surgical History History of suprapubic catheter Status post right hip replacement Family History Other Diabetes Heart disease Hyperlipidemia Hypertension Stroke Social History Smoking/Tobacco Use Status: Former Tobacco Use Smoking risk assessment performed?: Yes Alcohol Intake: never Drug use: Never Substance use type: does not use Household members: none Do you feel safe at home: Yes Do you feel safe in your relationship?: Yes Additional Social history: Lives alone[address] Does not drive. Exam Const General: cooperative, healthy appearing, comfortable, no acute distress and well developed Nutritional Appearance: well nourished and overweight Orientation: alert and awake HENMA Head: normal to inspection Mouth: moist mucous membranes and tongue abnormal (round growth on the back of her tongue, pink, no bleeding or pain) Resp Effort & Inspection: normal respiratory effort, able to speak in complete sentences and no respiratory distress Auscultation: clear to auscultation bilaterally, no rales, no rhonchi and no wheezes Cardio Rate: regular rate Rhythm: abnormal rhythm irregularly irregular Heart Sounds: S1 normal and S2 normal GI Inspection: normal to inspection and non-distended Palpation: soft, no hepatosplenomegaly, not firm, no guarding and nontender Percussion: normal to percussion Auscultation: normal bowel sounds Rectal Exam - female: visual inspection normal, normal sphincter tone, abnormal stool Rectal exam abnormal stool - female: blood-tinged stool, No fecal impaction, No fissure, heme positive stool and hemorrhoids (internal hemorrhoid palpated) Back/Spine/Pelvis Back: no CVA tenderness Skin General skin exam: erythema (skin around her anus is raw and irritated, not consistent with infection, n) Neuro General: patient alert and patient awake Cognition: normal cognition Speech: speech normal Psych Appearance: grossly normal and well kempt Mental Status: mental status grossly normal Speech and Movement: speech and movement normal
--- NOTE | 2020-07-08 19:15 | RT.EKG_ITS ---
APPROVED REPORT Exam: Resting ECG Patient Location: E HR:43 bpm ECG Measurements Heart Rate 43 AXIS MD [id number] P [id number] QRSd 89 QRS 11 QT 455 T 19 QTc 406 Conclusion Atrial fibrillation...V-rate 34- 70, irreg A-activity Probable lateral infarct, old...Q>35mS, abnormal ST-T, V5-6 I aVL I have reviewed and interpreted ECG and agree with software generated interpretation.
[2020-07-08] MEDS: Normal Saline 500 ML IV (19:50)
[2020-07-08 20:08] LABS: Abs Immature Grans 0.06 10^3/uL (0.0-0.06); Absolute Basophil Count 0.06 10^3/uL (0.0-0.2); Absolute Eosinophil Count 0.28 10^3/uL (0.0-0.7); Absolute Lymphocyte Count 2.89 10^3/uL (1.2-3.4); Absolute Monocyte Count 1.26 10^3/uL (0.1-0.8); Absolute Neutrophil Count 7.59 10^3/uL (1.2-6.7); Basophils % 0.5; Eosinophils % 2.3; HCT 34.4 % (36.0-46.0); HGB 10.4 g/dL (11.2-15.7); Immature Grans % 0.5; Lymphocytes % 23.8; MCHC 30.2 % (32.0-36.0); MPV 11.8 fL (8.0-11.0); Monocytes % 10.4; Neutrophils % 62.5; Nucleated RBC 0 %; Platelet Count 394 10^3/uL (130-400); RDW 15.5 % (11.7-14.6); RDW-SD 48.9 fL; WBC 12.14 10^3/uL (4.4-10.8)
[2020-07-08 20:17] LABS: ALT 28 U/L (14-59); AST 24 U/L (15-37); Albumin 3.7 g/dL (3.4-5.0); Alkaline Phosphatase 49 U/L (46-116); Anion Gap 12.1 mmol/L (3-11); BUN 28 mg/dL (7-18); Bilirubin, Total 0.2 mg/dL (0.2-1.0); CO2 23.9 mmol/L (21.0-32.0); Calcium 8.7 mg/dL (8.5-10.1); Chloride 99 mmol/L (98-107); Estimated GFR 25.98 (mL/min/1.73m2); Glucose 206 mg/dL (74-106); PTT Activated 34.5 sec (21.0-27.5); Potassium 5.4 mmol/L (3.5-5.1); Prothrombin Time 14.4 sec (9.3-11.0); Sodium 135 mmol/L (136-145); Total Protein 8.2 g/dL (6.4-8.2)
[2020-07-08 20:18] LABS: INR 1.4 (0.9-1.1)
--- NOTE | 2020-07-08 20:45 | DI.CT_ITS ---
EXAM: CT ABDOMEN PELVIS WO CLINICAL HISTORY: diarrhea, discomfort, rectal bleeding. TECHNIQUE: Imaging Protocol: Axial computed tomography images with coronal and sagittal reformatted images were created and reviewed. COMPARISON: CT CT ABDOMEN PELVIS WO from 07/16/2019 CR XR CHEST 2V PA LATERAL from 03/29/2020 FINDINGS: The examination is limited due to patient motion artifact. ABDOMEN: Lung Bases: Normal where visualized. Liver: Normal density. No measurable mass. Gallbladder and biliary tract: No radiodense calculus or biliary ductal dilation. Pancreas: Normal density, no abnormal calcifications or inflammatory process. Spleen: Normal. Kidneys: Normal size, contour and axis.No radiodense stones or obstructive uropathy. Stable 3 cm cyst in the right kidney. Adrenal glands: No mass is seen. Lymph nodes: Within normal limits. Abdominal Aorta: Abdominal portion non-dilated. Atherosclerosis. PELVIS: Bladder:There is diffuse thickening of the wall of the urinary bladder. This may be due to chronic b ladder outlet obstruction. Inflammatory infectious process cannot be excluded. Please correlate cli nically. There is a suprapubic catheter. Bowel: No obstruction or bowel wall thickening. Normal appendix is visualized. Peritoneal cavity: No ascites, collection or mesenteric inflammatory response Reproductive organs: Within normal limits. Bones: Patient has a right total hip arthroplasty. Degenerative changes are seen in the spine. Ther e has been further decrease in height of the L1 compression fracture when compared to the chest x-ray from 03/29/2020. There is now approximately 30 percent loss of height of the anterior vertebral body . Stable grade 1 anterolisthesis of L4 on L5 is noted. Soft Tissues: Within normal limits. IMPRESSION: 1. No acute abdominal pelvic process. 2. Mild diffuse urinary bladder wall thickening. This may be due to chronic bladder outlet obstructi on, infectious or inflammatory process. Please correlate clinically. 3. Suprapubic catheter in good position. 4. Continued loss of height of the L1 compression fracture since 03/29/2020. There is now approximate ly 30 percent loss of height of the vertebral body. RADIATION DOSE DELIVERED: 1,291.59mGy.cm Total DLP DATA REPOSITORY: All CT scans at this facility are submitted to the National Radiology Data Registry (NRDR) Dose Index Registry (DIR) with the [employer] (A[employer]). RADIATION OPTIMIZATION: All CT scans at this facility use at least one of these dose optimization te chniques: automated exposure control; mA and/or kV adjustment per patient size (includes targeted exa ms where dose is matched to clinical indication); or iterative reconstruction.
--- NOTE | 2020-07-08 21:50 | DI.VRAD_ITS ---
PROCEDURE INFORMATION: Exam: CT Abdomen And Pelvis Without Contrast Exam date and time: 07/08/2020 8:47 PM Age: 70 years old Clinical indication: Other: Diarrhea and rectal bleeding; Abdominal pain; Generalized; Prior surgery; Surgery date: 6+ months; Surgery type: Supra pubic cath, hip replacement, and c section; Patient HX: Diarrhea, rectal bleeding, abdominal discomfort TECHNIQUE: Imaging protocol: Computed tomography of the abdomen and pelvis without contrast. Radiation optimization: All CT scans at this facility use at least one of these dose optimization techniques: automated exposure control; mA and/or kV adjustment per patient size (includes targeted exams where dose is matched to clinical indication); or iterative reconstruction. COMPARISON: CT ABDOMEN PELVIS WO 07/16/2019 2:31 PM FINDINGS: Tubes, catheters and devices: There is a suprapubic catheter in place with its tip within the anterior aspect of the bladder lumen. Liver: Normal. No mass. Gallbladder and bile ducts: Normal. No calcified stones. No ductal dilation. Pancreas: The pancreas is moderately atrophic but appears otherwise unremarkable without focal lesion or evidence of acute inflammation. Spleen: Normal. No splenomegaly. Adrenal glands: Normal. No mass. Kidneys and ureters: There is a 2.9 cm right lower pole renal cyst as well as a sub cm low-dense right upper pole renal lesion which is too small to characterize but likely represents a cyst. There are no urinary tract stones. There is no hydronephrosis or hydroureter. Stomach and bowel: There is no evidence for small or large bowel inflammation. Again noted are multiple prominent air-filled loops of small bowel, which could reflect some degree of ileus. There is no evidence obstruction. Appendix: The appendix is well visualized and appears. Intraperitoneal space: Unremarkable. No free air. No significant fluid collection. Vasculature: There is mild atherosclerotic calcification of the abdominal aorta iliac arteries without aneurysm formation. Lymph nodes: Unremarkable. No enlarged lymph nodes. Urinary bladder: Bladder contains a small to moderate amount of urine. There may be mild diffuse bladder wall thickening. Reproductive: Unremarkable as visualized. Bones/joints: The prior left posterior 8th and 9th rib fractures appear mostly healed, as seen on axial images 4 and 10, series 2. There is a moderate anterior wedge compression fracture the L1 vertebra with 34% loss of anterior vertebral body height. The fracture appears subacute. Again noted is moderate facet arthrosis of lower lumbar spine with multilevel [id number] spondylosis of the lower thoracic and upper lumbar spine. Soft tissues: Unremarkable. IMPRESSION: 1. No acute process within the abdomen or pelvis identified. 2. The suprapubic catheter appears in good position. There may be mild diffuse bladder wall thickening which can be seen in the setting of cystitis. Recommend clinical correlation. 3. New moderate compression fracture of the L1 vertebra which appears subacute. 4. Prior left posterior rib fractures now appear mostly healed. Dictated and Authenticated by: Sonny Ocampo MD. Ordering:DOUG Bridges MD
--- NOTE | 2020-07-08 22:18 | HPE_ITS ---
Date of service: 07/08/20 Time of Service: 22:18 Assessment and Plan Assessment and plan (1) GI bleed: Start date: 07/08/20 Status: Acute Assessment and plan: This is a 70-year-old lady who has had a bout of diarrhea recently with blood in her stools. This was concerning to her and she came to the ED for evaluation. She has had no evidence of cardiovascular compromise from bloody stools with chronic atrial fibrillation and on Xarelto along with aspirin as possible contributors to GI blood loss. She has no upper GI symptoms. She will be observed overnight with type and screen performed. Surgical consultation should be entertained in the morning especially if she drops her hemoglobin or continues to have blood in her stools. She appears to be stable. She is a full code. Qualifiers: GI bleed type/associated pathology: unspecified gastrointestinal hemorrhage type Qualified Code(s): K92.2 - Gastrointestinal hemorrhage, unspecified (2) MELVA (acute kidney injury): Start date: 07/08/20 Status: Acute Assessment and plan: Patient appears to have increased her creatinine and has acute kidney injury on chronic kidney disease with her fluid loss. Gentle IV hydration and follow-up labs in the morning. Watch for fluid overload. (3) Atrial fibrillation and flutter: Status: Chronic Assessment and plan: Patient appears to have rate controlled atrial fibrillation will have anticoagulation held Xarelto and aspirin not being given during this hospital stay. Long-term she will need at least lower GI evaluation before restarting Xarelto. (4) Poorly controlled diabetes mellitus: Status: Chronic Assessment and plan: Patient is on basal insulin and short-acting insulin for treatment of her diabetes which by history is poorly controlled. Hold basal insulin while in the hospital and cover with sliding scale short acting insulin before meals at bedtime. If patient is n.p.o. for GI endoscopies this should be a safe approach to treating her hyperglycemia. She will be on a diabetic diet. History of Present Illness History of Present Illness Chief Complaint: Diarrheal stools with bright red blood Narrative: This is a 70-year-old female patient who presented to the ED with a 3-day history of diarrhea and up to 5 bowel movements a day with increase in 9 bowel movements a day and blood in her stool. The blood began later during her diarrheal history. In the ED she did have some bright red blood on rectal exam which were thought to be from hemorrhoids. She was asymptomatic other than her reported history though she was on Xarelto for atrial fibrillation. She also was on aspirin for TIAs. She has had no palpitations or dizziness. Did have some rectal pain with wiping only. She denies any fever or nausea and vomiting. She has had no respiratory or GI complaints. After evaluation in the ED, the patient was more comfortable staying overnight for observation and trending her lab work in the morning with a type and screen performed. If she has no further bleeding or significant drop in her hemoglobin she could be karen luated further by surgery as an outpatient for possible sources of her bloody stool. CT of the abdomen was performed in the ED and did not reveal any acute process but did reveal the suprapubic catheter in place for chronic urinary retention. Review of Systems Narrative: 13 point review of systems otherwise unrevealing or stable. [facility] Medical History (Updated 07/09/20 @ 00:44 by Sunil Borrero) Atrial fibrillation Cataracts, bilateral CHF (congestive heart failure) Diabetes Hyperlipidemia Hypertension PSVT (paroxysmal supraventricular tachycardia) S/P right hip fracture Urinary retention (03/31/16) Surgical History History of suprapubic catheter Status post right hip replacement Family History Other Diabetes Heart disease Hyperlipidemia Hypertension Stroke Social History Smoking/Tobacco Use Status: Former Tobacco Use Smoking risk assessment performed?: Yes Alcohol Intake: never Drug use: Never Substance use type: does not use Household members: none Do you feel safe at home: Yes Do you feel safe in your relationship?: Yes Additional Social history: Lives alone. [address] Does not drive. Meds Home Medications and Allergies Home Medications Medication Instructions Recorded Confirmed Type omeprazole 20 mg PO DAILY 09/22/12 07/08/20 History Xarelto 20 mg PO DAILY 04/20/15 07/08/20 History metformin [Glucophage] 1 tab PO BID 11/24/16 07/08/20 History magnesium oxide [MagOx] 400 mg PO DAILY #30 tab 05/19/17 07/08/20 Rx atorvastatin 20 mg PO DAILY 05/16/18 07/08/20 History insulin aspart U-100 [Novolog 12 units SUB-Q BID 05/16/18 07/08/20 History PenFill U-100 Insulin] Tresiba FlexTouch U-200 45 unit SUBCUT DAILY 05/12/19 07/08/20 History lisinopril 10 mg PO DAILY 05/12/19 07/08/20 History aspirin 81 mg PO DAILY #30 tab 07/19/19 07/08/20 Rx calcitonin (salmon) 0 ml NS DAILY #30 ml 07/19/19 07/08/20 Rx calcium carbonate-vitamin D3 1 tab PO BID #60 tab 07/19/19 07/08/20 Rx [Calcium 600 + D(3)] diltiazem HCl 240 mg PO QAM #60 cap 07/19/19 07/08/20 Rx lidocaine [Lidoderm] 2 patch TOPICAL DAILY #60 ea 07/19/19 07/08/20 Rx metoprolol succinate 200 mg PO QPM #60 tab 07/19/19 07/08/20 Rx diaper,brief,adult,disposable #100 ea 10/11/19 05/30/20 Rx nystatin 100,000 unit/gram topical 1 applic TOPICAL BID PRN #60 gm 10/11/19 07/08/20 Rx powder Allergies Allergy/AdvReac Type Severity Reaction Status Date / Time trazodone AdvReac Intermediate NIGHTMARES Verified 07/08/20 19:15 Exam Narrative Exam Narrative: General: Patient appears older than stated age and is hard of hearing. She appears alert and oriented to person place and time. She is in no acute distress. HEENT: Normocephalic, coarsened features, eyes with pupils equal and reactive to light symmetrically, extraocular movement intact and sclera anicteric. Oropharynx with moist mucosa. Neck: Supple without JVD. Lungs: Clear to auscultation and percussion. Back: Stooped posture without CVA tenderness. Breast: Exam deferred but nurse reports intertriginous rash consistent with candidiasis under both breasts. Heart: Irregular irregular rhythm with normal rate. No appreciable murmurs or gallops. Abdomen: Obese contour, soft and nontender to palpation with no palpable hepato splenomegaly. Suprapubic catheter in place with yellow urine draining. Genitalia/rectal: Exam deferred. ED did examine the rectal with some irritated skin around the rectum and probable hemorrhoid palpated. There was some streaky blood on the glove with exam. Extremities: Without clubbing, cyanosis or pitting edema. Joints do have fair range of motion. Peripheral pulses intact. Skin: Slightly pale, warm and dry with intertriginous rash under breasts as mentioned. Neuro: Cranial nerves II through XII grossly intact except decreased hearing acuity, no focalizing motor deficits. Psych: Speech is loud patient appears to have normal mood and no abnormal thought processes. Remote and recent memory appear to be grossly intact. Results Imaging Imaging Studies: Exam: CT Abdomen And Pelvis Without Contrast Exam date and time: 07/08/2020 8:47 PM Age: 70 years old Clinical indication: Other: Diarrhea and rectal bleeding; Abdominal pain; Generalized; Prior surgery; Surgery date: 6+ months; Surgery type: Supra pubic cath, hip replacement, and c section; Patient HX: Diarrhea, rectal bleeding, abdominal discomfort TECHNIQUE: Imaging protocol: Computed tomography of the abdomen and pelvis without contrast. Radiation optimization: All CT scans at this facility use at least one of these dose optimization techniques: automated exposure control; mA and/or kV adjustment per patient size (includes targeted exams where dose is matched to clinical indication); or iterative reconstruction. COMPARISON: CT ABDOMEN PELVIS WO 07/16/2019 2:31 PM FINDINGS: Tubes, catheters and devices: There is a suprapubic catheter in place with its tip within the anterior aspect of the bladder lumen. Liver: Normal. No mass. Gallbladder and bile ducts: Normal. No calcified stones. No ductal dilation. Pancreas: The pancreas is moderately atrophic but appears otherwise unremarkable without focal lesion or evidence of acute inflammation. Spleen: Normal. No splenomegaly. Adrenal glands: Normal. No mass. Kidneys and ureters: There is a 2.9 cm right lower pole renal cyst as well as a sub cm low-dense right upper pole renal lesion which is too small to characterize but likely represents a cyst. There are no urinary tract stones. There is no hydronephrosis or hydroureter. Stomach and bowel: There is no evidence for small or large bowel inflammation. Again noted are multiple prominent air-filled loops of small bowel, which could reflect some degree of ileus. There is no evidence obstruction. Appendix: The appendix is well visualized and appears. Intraperitoneal space: Unremarkable. No free air. No significant fluid collection. Vasculature: There is mild atherosclerotic calcification of the abdominal aorta iliac arteries without aneurysm formation. Lymph nodes: Unremarkable. No enlarged lymph nodes. Urinary bladder: Bladder contains a small to moderate amount of urine. There may be mild diffuse bladder wall thickening. Reproductive: Unremarkable as visualized. Bones/joints: The prior left posterior 8th and 9th rib fractures appear mostly healed, as seen on axial images 4 and 10, series 2. There is a moderate anterior wedge compression fracture the L1 vertebra with 34% loss of anterior vertebral body height. The fracture appears subacute. Again noted is moderate facet arthrosis of lower lumbar spine with multilevel [id number] spondylosis of the lower thoracic and upper lumbar spine. Soft tissues: Unremarkable. IMPRESSION: 1. No acute process within the abdomen or pelvis identified. 2. The suprapubic catheter appears in good position. There may be mild diffuse bladder wall thickening which can be seen in the setting of cystitis. Recommend clinical correlation. 3. New moderate compression fracture of the L1 vertebra which appears subacute. 4. Prior left posterior rib fractures now appear mostly healed. Dictated and Authenticated by: Sonny Ocampo MD. Labs Result diagrams: 07/08/20 19:20 07/08/20 19:20 Labs: Laboratory Results - last 24 hr 07/08/20 07/08/20 07/08/20 19:20 19:20 19:20 WBC 12.14 H RBC 4.00 Hgb 10.4 L Hct 34.4 L MCV 86.0 MCH 26.0 L MCHC 30.2 L RDW 15.5 H Plt Count 394 MPV 11.8 H Immature Gran % 0.5 Neutrophils % 62.5 Lymphocytes % 23.8 Monocytes % 10.4 Eosinophils % 2.3 Basophils % 0.5 Nucleated RBC % 0 Absolute Neutrophils 7.59 H Absolute Lymphocytes 2.89 Absolute Monocytes 1.26 H Absolute Eosinophils 0.28 Absolute Basophils 0.06 PT 14.4 H INR 1.4 H APTT 34.5 H Sodium 135 L Potassium 5.4 H Chloride 99 Carbon Dioxide 23.9 Anion Gap 12.1 H BUN 28 H Creatinine 1.90 H Estimated GFR/1.73 m2 25.98 Glucose 206 H Calcium 8.7 Total Bilirubin 0.2 AST 24 ALT 28 Alkaline Phosphatase 49 Total Protein 8.2 Albumin 3.7 Last Vital Signs Temp 36.5 C 07/08/20 19:06 Pulse 60 07/08/20 20:46 Resp 20 07/08/20 21:20 BP 138/62 07/08/20 20:46 Pulse Ox 96 07/08/20 21:20 COVID-19 Screening Have you, or household traveled for leisure in last 14 days?: No Had IN PERSON contact w/suspected or confirmed C-19 person: No
[2020-07-09 00:13] VITALS: PULSE 90
[2020-07-09] MEDS: Normal Saline 1,000 ML 125 ML IV (01:03)
[2020-07-09 03:58] VITALS: BP 128/78; PULSE 90; RESP 17; TEMP 36.1; O2SAT 93
[2020-07-09 07:11] LABS: Abs Immature Grans 0.03 10^3/uL (0.0-0.06); Absolute Basophil Count 0.05 10^3/uL (0.0-0.2); Absolute Eosinophil Count 0.29 10^3/uL (0.0-0.7); Absolute Lymphocyte Count 2.25 10^3/uL (1.2-3.4); Absolute Monocyte Count 0.95 10^3/uL (0.1-0.8); Basophils % 0.6; Eosinophils % 3.4; HCT 31.8 % (36.0-46.0); HGB 9.8 g/dL (11.2-15.7); Immature Grans % 0.4; Lymphocytes % 26.3; MCH 26.6 pg (27.0-33.0); MCHC 30.8 % (32.0-36.0); MCV 86.4 fL (80-95); MPV 10.7 fL (8.0-11.0); Monocytes % 11.1; Neutrophils % 58.2; Nucleated RBC 0 %; Platelet Count 377 10^3/uL (130-400); RBC 3.68 10^6/uL (3.93-5.22); RDW 15.4 % (11.7-14.6); RDW-SD 48.9 fL; WBC 8.57 10^3/uL (4.4-10.8)
[2020-07-09 07:25] LABS: ALT 22 U/L (14-59); AST 16 U/L (15-37); Albumin 2.9 g/dL (3.4-5.0); Alkaline Phosphatase 39 U/L (46-116); Anion Gap 8.5 mmol/L (3-11); BUN 24 mg/dL (7-18); Bilirubin, Total 0.2 mg/dL (0.2-1.0); CO2 26.5 mmol/L (21.0-32.0); CREATININE 1.34 mg/dL (0.55-1.02); Calcium 8.1 mg/dL (8.5-10.1); Chloride 106 mmol/L (98-107); Estimated GFR 38.88 (mL/min/1.73m2); Glucose 139 mg/dL (74-106); Potassium 4.4 mmol/L (3.5-5.1); Sodium 141 mmol/L (136-145); Total Protein 6.8 g/dL (6.4-8.2)
[2020-07-09 07:41] VITALS: PULSE 87
[2020-07-09 07:47] VITALS: BP 146/86; PULSE 82; RESP 18; TEMP 36.6; O2SAT 91
[2020-07-09] MEDS: Atorvastatin 20 MG TAB PO (07:55)
[2020-07-09] MEDS: dilTIAZem CD 120 MG CAPCR 240 MG PO (07:55)
[2020-07-09] MEDS: Magnesium Oxide 400 MG TAB PO (07:55)
[2020-07-09] MEDS: Omeprazole 20 MG CAPCR PO (07:56)
[2020-07-09] MEDS: Nystatin POWDER 60 GM JAR TP (09:29)
[2020-07-09 09:45] LABS: Hemoglobin A1C 10.6 % (<5.7)
[2020-07-09 11:13] LABS: Bilirubin Negative (Negative); Blood Small (Negative); Clarity Cloudy (Clear); Glucose 250 mg/dL (Negative); Ketones Negative (Negative); Leukocyte Esterase Large (Negative); Nitrite Negative (Negative); Urobilinogen 0.2 EU/dL (Up TO 0.2)
[2020-07-09 11:22] LABS: Bacteria Many HPF (Negative)
[2020-07-09 11:24] LABS: C & S Indicated? Yes; WBC >50 HPF (0-5)
[2020-07-09 11:32] VITALS: BP 127/79; PULSE 81; RESP 18; TEMP 36.4; O2SAT 91
--- NOTE | 2020-07-09 11:34 | W.PM.DS.N ---
Date of service: 07/09/20 Time of Service: 11:35 DS: Diagnosis Discharge Diagnosis (1) GI bleed: Status: Acute (2) MELVA (acute kidney injury): Status: Acute (3) Atrial fibrillation and flutter: Status: Chronic (4) Poorly controlled diabetes mellitus: Status: Chronic Discharge Plan Disposition Patient Disposition: HOME Condition: Stable Discharge Details Reason For Visit: GI BLEED, ACUTE KIDNEY INJURY, ATRIAL FIBRILATATIO Admit Date/Time: 07/08/20 22:03 Admit Provider: Sunil Borreor Attending Provider: Sunil Borrero Primary Care Provider: Raheem Lew Hospital Course Hospital Course: This is a 70-year-old female patient who presented to the ED with a 3-day history of diarrhea and up to 5 bowel movements a day with increase in 9 bowel movements a day and blood in her stool. The blood began later during her diarrheal history. In the ED she did have some bright red blood on rectal exam which were thought to be from hemorrhoids. She was asymptomatic other than her reported history though she was on Xarelto for atrial fibrillation. She also was on aspirin for TIAs. She has had no palpitations or dizziness. Did have some rectal pain with wiping only. She denies any fever or nausea and vomiting. She has had no respiratory or GI complaints. After evaluation in the ED, the patient was more comfortable staying overnight for observation and trending her lab work in the morning with a type and screen performed. She had no further bleeding or significant drop in her hemoglobin so she can be evaluated further by surgery as an outpatient for possible sources of her bloody stool. CT of the abdomen was performed in the ED and did not reveal any acute process. Her suprapubic catheter was replaced while here. Of note urine culture pending but no fever and normalized white count. Her xarelto and asa has been place on hold pending this evaluation. discharge discussed with Dr Ruggiero Home Meds and New Rx's Prescriptions: New ferrous sulfate 325 mg (65 mg iron) Tablet 325 mg PO BID Qty: 60 RF: 0 Continued (DME) Depend Underwear For Women S-M Misc 1 ea Miscellaneous TID Qty: 100 RF: 12 nystatin 100,000 unit/gram powder 1 applic Topical BID PRN (Reason: itching) Qty: 60 RF: 11 omeprazole 20 MG capsule,delayed release(DR/EC) 20 mg PO DAILY RF: 0 metformin [Glucophage] 1,000 MG tablet 1 tab PO BID RF: 0 magnesium oxide [MagOx] 400 MG tablet 400 mg PO DAILY Qty: 30 RF: 0 lisinopril 10 mg Tablet 10 mg PO DAILY RF: 0 Tresiba FlexTouch U-200 200 unit/mL (3 mL) Insulin Pen 45 unit SUBCUT DAILY RF: 0 atorvastatin 20 mg Tablet 20 mg PO DAILY RF: 0 insulin aspart U-100 [Novolog PenFill U-100 Insulin] 100 UNIT/ML cartridge 12 units Sub-Q BID RF: 0 metoprolol succinate 100 mg Tablet Extended Release 24 Hr 200 mg PO QPM Qty: 60 RF: 0 calcium carbonate-vitamin D3 [Calcium 600 + D(3)] 600 mg(1,500mg) -200 unit Tablet 1 tab PO BID Qty: 60 RF: 0 calcitonin (salmon) 200 unit/actuation [place],Non-Aerosol 0 ml NS DAILY Qty: 30 RF: 0 lidocaine [Lidoderm] 5 % Adhesive Patch,Medicated 2 patch topical DAILY Qty: 60 RF: 0 diltiazem HCl 120 mg Capsule,Extended Release 24hr 240 mg PO QAM Qty: 60 RF: 0 Discontinued Xarelto 20 MG tablet 20 mg PO DAILY RF: 0 aspirin 81 mg Tablet,Delayed Release (Dr/Ec) 81 mg PO DAILY Qty: 30 RF: 0 Discharge Instructions Instructions: Rectal Bleeding (DC) Additional Instructions: continue to hold your aspirin and xarelto until instructed by your doctor. return for new or worsening symptoms including but not limited to ongoing bleeding, lightheadedness, shortness of breath or chest pain. your urine culture is pending but you had no fevers and a normal white count. should you develop symptoms of urinary tract infection, please call Dr Monaco or your primary care provider Stand Alone Forms: Nursing Discharge Form Referrals: Raheem Lew NP [Primary Care Provider] - 07/23/20 8:30 am Zoey Alberto DO [OSTEOPATHIC DOCTOR] - 07/19/20 9:30 am Activity:: Activity as Tolerated Equipment/Supplies:: No Equipment Needed Diet:: Carb Counting Discharge Orders Discharge Orders: Discharge Order (Routine); Ordered 07/09/20 Ordered By: Rema Santana DS: Summary Status at Discharge Functional status at discharge: independent ambulation Overall status at discharge: patient is back to baseline Mental Status: mental status grossly normal Speech and Movement: speech and movement normal Mood: congruent mood Affect: normal affect Exam Const General: cooperative, healthy appearing, comfortable, no acute distress and well developed Nutritional Appearance: well nourished and overweight Orientation: alert and awake HENMT Head: normal to inspection Mouth: moist mucous membranes Resp Effort & Inspection: normal respiratory effort, able to speak in complete sentences and no respiratory distress Auscultation: clear to auscultation bilaterally, no rales, no rhonchi and no wheezes Cardio Rate: regular rate Rhythm: abnormal rhythm irregularly irregular Heart Sounds: S1 normal and S2 normal GI Inspection: normal to inspection and non-distended Palpation: soft, no hepatosplenomegaly, not firm, no guarding and nontender Percussion: normal to percussion Auscultation: normal bowel sounds General: other (suprapubic catheter intact, draining clear yellow urine) Back/Spine/Pelvis Back: no CVA tenderness Neuro General: patient alert and patient awake Cognition: normal cognition Speech: speech normal Psych Appearance: grossly normal and well kempt Mental Status: mental status grossly normal Speech and Movement: speech and movement normal Mood: congruent mood Affect: normal affect DS: Data Vitals/I&O Vitals and I&O: Vital Signs Temperature 36.6 C 07/09/20 07:47 Temperature Source Tympanic 07/09/20 07:47 Pulse 82 07/09/20 07:47 Pulse Rhythm Irregular 07/09/20 08:00 Pulse 79 07/08/20 22:41 Respiratory Rate 18 07/09/20 07:47 Respiratory Effort Non-Labored 07/09/20 08:00 Respiratory Depth Normal 07/09/20 08:00 Respiratory Pattern Normal 07/09/20 08:00 Blood Pressure 146/86 H 07/09/20 07:47 Blood Pressure Mean 85 07/08/20 22:40 Blood Pressure Position Sitting 07/08/20 19:06 Pulse Oximetry 91 L 07/09/20 07:47 Oxygen Delivery Method Room Air 07/09/20 07:47 Oxygen Flow Rate 0 07/09/20 07:47 Pain Level 0 07/09/20 07:47 Intake & Output 07/08/20 07/08/20 07/09/20 11:59 23:59 11:59 Intake Total 500 / 500 1000 / 1000 Output Total 2300 / 2300 Balance 500 / 500 -1300 / -1300 Weight 97.522 kg 108 kg Intake: IV 500 / 500 1000 / 1000 Output: Urine 2300 / 2300 Other: Urine Color Yellow Urine Appearance Cloudy Stool Size Moderate Stool Characteristics Soft Formed Brown Verduzco Emesis Description None Data Completed and Pending Labs on day of discharge: Labs from last 24 hours 07/09/20 07/09/20 07/09/20 12:00 10:44 06:45 WBC RBC Hgb Pending Hct Pending MCV MCH MCHC RDW Plt Count MPV Immature Gran % Neutrophils % Lymphocytes % Monocytes % Eosinophils % Basophils % Nucleated RBC % Absolute Neutrophils Absolute Lymphocytes Absolute Monocytes Absolute Eosinophils Absolute Basophils PT INR APTT Sodium Potassium Chloride Carbon Dioxide Anion Gap BUN Creatinine Estimated GFR/1.73 m2 Glucose Hemoglobin A1c 10.6 H Calcium Total Bilirubin AST ALT Alkaline Phosphatase Total Protein Albumin Urine Color Yellow Urine Clarity Cloudy Urine pH 6.0 Ur Specific [place] 1.020 Urine Protein Trace H Urine Ketones Negative Urine Blood Small H Urine Nitrite Negative Urine Bilirubin Negative Urine Urobilinogen 0.2 Ur Leukocyte Esterase Large H Urine RBC Not Applicable Urine WBC >50 H Ur Epithelial Cells Not Applicable Urine Crystals Not Applicable Urine Bacteria Many Urine Mucus Not Applicable Ur Culture Indicated? Yes Urine Glucose 250 H SARS-CoV-2 (PCR) Nasopharyn COVID-19 PCR Ref Test Perform Site Patient ABO/Rh Antibody Screen 07/09/20 07/09/20 07/08/20 06:45 06:45 22:15 WBC 8.57 RBC 3.68 L Hgb 9.8 L Hct 31.8 L MCV 86.4 MCH 26.6 L MCHC 30.8 L RDW 15.4 H Plt Count 377 MPV 10.7 Immature Gran % 0.4 Neutrophils % 58.2 Lymphocytes % 26.3 Monocytes % 11.1 Eosinophils % 3.4 Basophils % 0.6 Nucleated RBC % 0 Absolute Neutrophils 5.00 Absolute Lymphocytes 2.25 Absolute Monocytes 0.95 H Absolute Eosinophils 0.29 Absolute Basophils 0.05 PT INR APTT Sodium 141 Potassium 4.4 Chloride 106 Carbon Dioxide 26.5 Anion Gap 8.5 BUN 24 H Creatinine 1.34 H Estimated GFR/1.73 m2 38.88 Glucose 139 H Hemoglobin A1c Calcium 8.1 L Total Bilirubin 0.2 AST 16 ALT 22 Alkaline Phosphatase 39 L Total Protein 6.8 Albumin 2.9 L Urine Color Urine Clarity Urine pH Ur Specific [place] Urine Protein Urine Ketones Urine Blood Urine Nitrite Urine Bilirubin Urine Urobilinogen Ur Leukocyte Esterase Urine RBC Urine WBC Ur Epithelial Cells Urine Crystals Urine Bacteria Urine Mucus Ur Culture Indicated? Urine Glucose SARS-CoV-2 (PCR) Pending Nasopharyn COVID-19 PCR Pending Ref Test Perform Site Pending Patient ABO/Rh Antibody Screen 07/08/20 07/08/20 07/08/20 19:20 19:20 19:20 WBC 12.14 H RBC 4.00 Hgb 10.4 L Hct 34.4 L MCV 86.0 MCH 26.0 L MCHC 30.2 L RDW 15.5 H Plt Count 394 MPV 11.8 H Immature Gran % 0.5 Neutrophils % 62.5 Lymphocytes % 23.8 Monocytes % 10.4 Eosinophils % 2.3 Basophils % 0.5 Nucleated RBC % 0 Absolute Neutrophils 7.59 H Absolute Lymphocytes 2.89 Absolute Monocytes 1.26 H Absolute Eosinophils 0.28 Absolute Basophils 0.06 PT 14.4 H INR 1.4 H APTT 34.5 H Sodium Potassium Chloride Carbon Dioxide Anion Gap BUN Creatinine Estimated GFR/1.73 m2 Glucose Hemoglobin A1c Calcium Total Bilirubin AST ALT Alkaline Phosphatase Total Protein Albumin Urine Color Urine Clarity Urine pH Ur Specific [place] Urine Protein Urine Ketones Urine Blood Urine Nitrite Urine Bilirubin Urine Urobilinogen Ur Leukocyte Esterase Urine RBC Urine WBC Ur Epithelial Cells Urine Crystals Urine Bacteria Urine Mucus Ur Culture Indicated? Urine Glucose [facility] Ref Test Perform Site Patient ABO/Rh A Positive Antibody Screen Negative 07/08/20 19:20 WBC RBC Hgb Hct MCV MCH MCHC RDW Plt Count MPV Immature Gran % Neutrophils % Lymphocytes % Monocytes % Eosinophils % Basophils % Nucleated RBC % Absolute Neutrophils Absolute Lymphocytes Absolute Monocytes Absolute Eosinophils Absolute Basophils PT INR APTT Sodium 135 L Potassium 5.4 H Chloride 99 Carbon Dioxide 23.9 Anion Gap 12.1 H BUN 28 H Creatinine 1.90 H Estimated GFR/1.73 m2 25.98 Glucose 206 H Hemoglobin A1c Calcium 8.7 Total Bilirubin 0.2 AST 24 ALT 28 Alkaline Phosphatase 49 Total Protein 8.2 Albumin 3.7 Urine Color Urine Clarity Urine pH Ur Specific [place] Urine Protein Urine Ketones Urine Blood Urine Nitrite Urine Bilirubin Urine Urobilinogen Ur Leukocyte Esterase Urine RBC Urine WBC Ur Epithelial Cells Urine Crystals Urine Bacteria Urine Mucus Ur Culture Indicated? Urine Glucose SARS-CoV-2 (PCR) Nasopharyn COVID-19 PCR Ref Test Perform Site Patient ABO/Rh Antibody Screen 07/09/20 10:44 Urine - Reflex from Ua Urine Culture - Pending Preliminary micro results at discharge 07/09/20 10:44 Urine Culture - Pending Urine - Reflex from [facility] Medical History (Updated 07/09/20 @ 00:44 by Sunil Borrero) Atrial fibrillation Cataracts, bilateral CHF (congestive heart failure) Diabetes Hyperlipidemia Hypertension PSVT (paroxysmal supraventricular tachycardia) S/P right hip fracture Urinary retention (03/31/16) Surgical History History of suprapubic catheter Status post right hip replacement Family History Other Diabetes Heart disease Hyperlipidemia Hypertension Stroke Social History Smoking/Tobacco Use Status: Former Tobacco Use Smoking risk assessment performed?: Yes Alcohol Intake: never Drug use: Never Substance use type: does not use Household members: none Do you feel safe at home: Yes Do you feel safe in your relationship?: Yes Additional Social history: Lives alone. [address] Does not drive.
[2020-07-09] MEDS: Insulin Aspart 300 UNITS/3 ML PEN SC (11:54)
[2020-07-09] MEDS: Ferrous Sulfate 325 MG TAB PO (11:54)
[2020-07-09 12:21] LABS: HCT 35.8 % (36.0-46.0); HGB 10.8 g/dL (11.2-15.7)
[2020-07-09 13:19] VITALS: PULSE 66
--- NOTE | 2020-07-09 17:36 | PDOC.CMIN ---
- If Service Date Differs Date of service: 07/09/20 Time of Service: 17:36 Care Management Initial Assess REASON FOR HOSPITALIZATION:: GI bleed, MELVA, Atrial Fibrilation PAST MEDICAL HISTORY/PAST SURGICAL HISTORY:: Medical History. Atrial fibrillation. Cataracts, bilateral. CHF (congestive heart failure). Diabetes. Hyperlipidemia. Hypertension. PSVT (paroxysmal supraventricular tachycardia). S/P right hip fracture. Urinary retention (03/31/16). Surgical History. History of suprapubic catheter. Status post right hip replacement. Family History . Other. Diabetes. Heart disease. Hyperlipidemia. Hypertension. Stroke PREVIOUS FUNCTIONAL STATUS/SOCIAL/FAMILY SUPPORTS:: Hope lives in the [facility] with her talking parrot. She is independent with ADL's and uses a cane for ambulation. She has many community supports including [facility] moderate needs, SASH, [facility] and [facility] for transportation. CURRENT FUNCTIONAL STATUS:: Hope was sitting up in her chair when CM met with her. She reported that she was feeling well, and was ready to retrun home. She requested that CM coordinate a ride for her. CM called and provided her with a ride with private vehicle by [facility]. She stated that she received very good care while at [facility]. CM will continue to follow. ADVANCE DIRECTIVES:: None on file, patient states she does not want one and when she dies she dies Has patient been provided with info about the portal/API?: Yes Did the patient sign up for the portal?: No CODE STATUS:: Full Code INSURANCE COVERAGE / FINANCIAL ISSUES:: [facility]/ [facility] CURRENT HOME/COMMUNITY SERVICES/EQUIPMENT:: [facility], Cane, Walker, [employer] Moderate needs, COA, MOW, SASH. PRIMARY CARE PHYSICIAN:: Raheem Lew POTENTIAL DISCHARGE NEEDS:: Evaluations for further needs, follow up appointments. PATIENT/FAMILY EDUCATION NEEDS:: Review discharge instructions regarding activitiy levels and medications, discussion of self care needs including ask me three. ANTICIPATED BARRIERS TO DISCHARGE:: None identified. TRANSPORTATION:: Via private vehicle vs Bus RCT PLAN:: Anticipate Hope will return home when medically cleared with a resumption of community supports. She will be driven home via private vehicle [facility], coordinated by CM. She will follow up with her PCP and discharge plan of care. CM will continue to follow.
--- NOTE | 2020-07-09 17:54 | PDOC.CMDIS ---
- If Service Date Differs Date of service: 07/09/20 Time of Service: 17:54 LACE Index Scoring Tool - Questions: Length of Stay (in days): 2 Acuity (Admit via E.D.?): Yes Comorbidities: Cerebrovascular Disease, Diabetes w/o Complication E.D. Visits: 3 - Answers: Total Score: 10 Risk of Readmission: High Risk Care Management Discharge Reason for Hospitalization: GI bleed, MELVA, Atrial Fibrilation Discharge Plan: Hope will return home with a resumption of community supports including COA, MOW, and C moderate needs. CM coordinated [facility] private vehicle to drive her home. She will follow up with her PCP and discharge plan of care. She is happy to be going home. Patient/Family Education Needs: Review discharge instructions regarding activity levels and medications, discussion of self care needs and goals of care. Services Needed at Discharge: Home Delivered Meals (MOW), Homemaking Services ([employer] moderate needs), Transportation ([facility] private vehicle)
[2020-07-09 21:15] LABS: COVID-19 RT-PCR UVMMC Result Negative (Negative)
== END 2020-07-09 14:12 | disposition home or self-care (01) ==
LOC: ER 22:16 → MS 23:16
PROVIDERS: Family Medicine; Admitting Provider Family Medicine; Emergency Provider Physician Assistant; PCP Nurse Practitioner Family; Visit Provider Family Medicine
DX: K92.1 Melena (principal); N17.9 Acute kidney failure, unspecified; E11.65 Type 2 diabetes mellitus with hyperglycemia; I48.91 Unspecified atrial fibrillation; I11.0 Hypertensive heart disease with heart failure; I50.9 Heart failure, unspecified; E78.5 Hyperlipidemia, unspecified; Z79.01 Long term (current) use of anticoagulants; Z79.82 Long term (current) use of aspirin; Z93.51 Cutaneous-vesicostomy status; R33.9 Retention of urine, unspecified; I48.92 Unspecified atrial flutter
CPT/HCPCS: 36415; 80053; 86850; 86900; 86901; 93005; 96360; 96361; 99220; 99239; 99285; U0003; 74176; 81003; 81015; 83036; 85014; 85018; 85025; 85610; 85730; 87086; 93010; 99217; G0378

== ENCOUNTER → 2020-07-30 09:20 | Outpatient (BNVA) | payer OTHER, MEDICAID, SELFPAY | PROVIDERS: PCP Nurse Practitioner Family; Referring Provider Nurse Practitioner Family; Visit Provider Nurse Practitioner Gerontology | DX: R33.9 Retention of urine, unspecified (principal); R32 Unspecified urinary incontinence; Z43.5 Encounter for attention to cystostomy | CPT/HCPCS: 51705 ==

== ENCOUNTER → 2020-08-27 09:20 | Outpatient (BNVA) | payer OTHER, MEDICAID, SELFPAY | PROVIDERS: PCP Nurse Practitioner Family; Referring Provider Nurse Practitioner Family; Visit Provider Nurse Practitioner Gerontology | DX: R33.8 Other retention of urine (principal); R32 Unspecified urinary incontinence; Z43.5 Encounter for attention to cystostomy | CPT/HCPCS: 51705 ==

== ENCOUNTER → 2020-10-17 09:20 | Outpatient (BNVA) | payer OTHER, MEDICAID, SELFPAY | PROVIDERS: PCP Nurse Practitioner Family; Referring Provider Nurse Practitioner Family; Visit Provider Nurse Practitioner Gerontology | DX: R33.8 Other retention of urine (principal); R32 Unspecified urinary incontinence; Z43.5 Encounter for attention to cystostomy; Z65.8 Other specified problems related to psychosocial circumstances | CPT/HCPCS: 51705; 99213 ==

== ENCOUNTER → 2020-10-31 09:23 | Outpatient (BNVA) | payer OTHER, MEDICAID, SELFPAY | PROVIDERS: PCP Nurse Practitioner Family; Referring Provider Nurse Practitioner Family; Visit Provider Nurse Practitioner Gerontology | DX: R33.8 Other retention of urine (principal); Z46.6 Encounter for fitting and adjustment of urinary device | CPT/HCPCS: 51705; 99213 ==

== ENCOUNTER 2020-11-25 19:31 | Inpatient (IN) | payer OTHER, MEDICAID, SELFPAY ==
[2020-11-25] VITALS (39 sets, daily range): BP systolic 90–138; BP diastolic 44–94; PULSE 31–101; RESP 8–23; TEMP 36.6; O2SAT 87–99
--- NOTE | 2020-11-25 19:30 | RT.EKG_ITS ---
APPROVED REPORT Exam: Resting ECG Reason for Exam: chest heavy Patient Location: E HR:33 bpm ECG Measurements Heart Rate 33 AXIS MI 256 P 0 QRSd 88 QRS 9 QT 551 T 26 QTc 403 Conclusion Sinus bradycardia...rate< 60 Atrial premature complex...SV complex w/ short R-R interval Prolonged MI interval...MI >230, V-rate 30- 49 Low voltage, extremity and precordial leads...extremity<0.5mV, precordial<1.0mV. No STEMI I have reviewed and interpreted ECG and agree with software generated interpretation.
[2020-11-25] MEDS: Normal Saline 1,000 ML 1000 ML IV (19:35)
[2020-11-25] MEDS: Atropine 1 MG/10 ML SYRINGE ×2 (19:35→19:40)
[2020-11-25] MEDS: fentaNYL 100 MCG/2 ML VIAL IVP (19:53)
[2020-11-25] MEDS: Lactated Ringers 1,000 ML 1000 ML IV (20:20)
[2020-11-25 20:28] LABS: BE (Venous) -8 mmol/L (-2-3); HCO3 (Venous) 18 mmol/L (23-28); O2 Sat (Venous) 77 %; TCO2 (Venous) 17 mmol/L (24-29); pCO2 (Venous) 35 mmHg (41-51); pH (Venous) 7.32 (7.31-7.41); pO2 (Venous) 44 mmHg
[2020-11-25 20:32] LABS: Abs Immature Grans 0.12 10^3/uL (0.0-0.06); Absolute Eosinophil Count 0.11 10^3/uL (0.0-0.7); Absolute Lymphocyte Count 1.92 10^3/uL (1.2-3.4); Absolute Monocyte Count 1.14 10^3/uL (0.1-0.8); Basophils % 0.4; HCT 36.4 % (36.0-46.0); HGB 11.3 g/dL (11.2-15.7); Immature Grans % 1.1; Lymphocytes % 17.2; MCH 27.8 pg (27.0-33.0); MCV 89.4 fL (80-95); MPV 11.3 fL (8.0-11.0); Monocytes % 10.2; Neutrophils % 70.1; Nucleated RBC 0 %; Platelet Count 332 10^3/uL (130-400); RBC 4.07 10^6/uL (3.93-5.22); RDW 14.9 % (11.7-14.6); RDW-SD 49.2 fL; WBC 11.19 10^3/uL (4.4-10.8)
--- NOTE | 2020-11-25 20:32 | W.ED.GENAD ---
Discharge Plan Disposition Patient Disposition: [facility] INPATIENT Condition: Serious Discharge Details Clinical Impression: MELVA (acute kidney injury), Hypomagnesemia, Hyperkalemia, Hyperosmolar hyperglycemic state (HHS) Admit Date/Time: 11/25/20 22:26 Admit Provider: Sunil Hair Attending Provider: Sunil Hair Primary Care Provider: Raheem Lew ED Provider: nAdi Contreras Discharge Data Discharge Date/Time-TO BE ENTERED AT DEPARTURE: 11/25/20 23:00 Medical Decision Making Patient presenting with bradycardia and hypotension. Initially treated with atropine and 500 of fluid. No real response in terms of heart rate. Transcutaneous pacer was applied but not started. I feel that this is a slow atrial fibrillation. She has history of same. She is on Cardizem and metoprolol. She is mentating perfectly fine. Her sugar is too high to read and blood pressure is low and I suspect the heart rate is a red lopez and the patient is just dehydrated, may be some renal insufficiency causing the buildup of metoprolol and diltiazem. My plan is to hydrate and wait for labs to return. 21:15 - Patient remained stable. Heart rate now in the 40s. Blood pressure has been sustained in the high 90s. Laboratory studies significant for MELVA with bicarb of 18.6, potassium 7.4, anion gap 12.4. Glucose is 636. Trace ketones in urine. This is not DKA. This is hyperosmolar hyperglycemia with dehydration and MELVA. Suspect the hyperkalemia is not helping with the patient's bradycardia though she is stable. Will treat with IV calcium, IV bicarbonate, IV insulin and p.o. Lokelma. Patient also with low magnesium which we will need to replace. Her venous pH is 7.32 and venous PCO2 35 so she is compensating. Urine with greater than 50 white blood cells but she is a suprapubic catheter and likely colonized. She has no fever and no significantly elevated white count. Will not treat at this point but will follow cultures. Will discuss with hospitalist for ICU admission and further management. Medical Records Medical records reviewed: Yes I reviewed the patient's medical records. Lab Data Lab results reviewed: Yes I reviewed the patient's lab results. ECG Data Attestation: I personally reviewed and interpreted this ECG (s) as follows: Prior ECG tracings: available for review Interpretation: see EKG: slow a-fib with NS ST changes but no acute elevation HPI General Mode of arrival: EMS. Date/Time Provider Initiated Documentation: 11/25/20 19:35. Limitations to Documentation: no limitations. Information obtained by: patient, EMS, RN notes reviewed and old records reviewed. HPI Narrative: Patient brought in by EMS with bradycardia and hypotension. 911 had been activated due to weakness and chest heaviness. Patient transported in with fluid running and 1 dose of atropine given. Patient initially seen by Dr. Nair as patient arrived about 10 minutes before my shift started. Patient received 2 more doses of atropine without significant response. Blood pressure reportedly 60-70 systolic. Blood sugar too high to read for EMS glucometer. Transcutaneous pacer pads were in place and patient had just received fentanyl. I arrived and care was transitioned to me. Patient states that her mouth is extremely dry and she is having trouble swallowing. Denies significant chest pain or pressure currently. She is awake and conversant. She reports no vomiting or diarrhea. She reports continued urine output. She denies fever or cough. Quick review of her medication shows that she is on metoprolol and Cardizem both for atrial fibrillation. My review of EMS rhythm strip, cafeteria monitor in the room, EKG performed here suggest patient is in a slow atrial fibrillation. I do not feel that she is in heart block. She has had about 500 mL's of saline. Forearm blood pressure with a systolic in the 90s. I elected not to start transcutaneous pacing. My suspicion is that the patient has been running high sugars for days with dehydration and probable MELVA leading to the metoprolol and diltiazem effects lasting longer with resultant bradycardia. Previous EKGs reveal bradycardia at baseline. Suspect blood pressure will resolve and normalize with fluids. Patient does report weakness and chest heaviness. She denies chest pain. Again denies fever, cough, headache, abdominal pain, vomiting, diarrhea, focal weakness, confusion. Related Data Home Medications Medication Instructions Recorded Confirmed omeprazole 20 mg PO DAILY 09/22/12 10/31/20 metformin [Glucophage] 1 tab PO BID 11/24/16 11/25/20 magnesium oxide [MagOx] 400 mg PO DAILY #30 tab 05/19/17 10/31/20 atorvastatin 20 mg PO DAILY 05/16/18 11/25/20 insulin aspart U-100 [Novolog 12 units SUB-Q BID 05/16/18 11/25/20 PenFill U-100 Insulin] Tresiba FlexTouch U-200 45 unit SUBCUT DAILY 05/12/19 10/31/20 lisinopril 10 mg PO DAILY 05/12/19 11/25/20 calcitonin (salmon) 0 ml NS DAILY #30 ml 07/19/19 11/25/20 calcium carbonate-vitamin D3 1 tab PO BID #60 tab 07/19/19 10/31/20 [Calcium 600 + D(3)] diltiazem HCl 240 mg PO QAM #60 cap 07/19/19 11/25/20 lidocaine [Lidoderm] 2 patch TOPICAL DAILY #60 ea 07/19/19 11/25/20 ferrous sulfate 325 mg PO BID #60 tab 07/09/20 11/25/20 diaper,brief,adult,disposable #100 ea 10/31/20 10/31/20 nystatin 100,000 unit/gram topical 1 applic TOPICAL BID PRN #60 gm 10/31/20 10/31/20 powder aspirin [Aspir-81] 81 mg PO DAILY 11/25/20 11/25/20 insulin degludec [Tresiba 20 unit SUBCUT DAILY 11/25/20 11/25/20 FlexTouch U-200] metoprolol succinate 100 mg PO BID 11/25/20 11/25/20 rivaroxaban [Xarelto] 20 mg PO DAILY 11/25/20 11/25/20 Previous Rx's Medication Instructions Recorded magnesium oxide [MagOx] 400 mg PO DAILY #30 tab 05/19/17 calcitonin (salmon) 0 ml NS DAILY #30 ml 07/19/19 calcium carbonate-vitamin D3 1 tab PO BID #60 tab 07/19/19 [Calcium 600 + D(3)] diltiazem HCl 240 mg PO QAM #60 cap 07/19/19 lidocaine [Lidoderm] 2 patch TOPICAL DAILY #60 ea 07/19/19 ferrous sulfate 325 mg PO BID #60 tab 07/09/20 diaper,brief,adult,disposable #100 ea 10/31/20 nystatin 100,000 unit/gram topical 1 applic TOPICAL BID PRN #60 gm 10/31/20 powder Allergies Allergy/AdvReac Type Severity Reaction Status Date / Time trazodone AdvReac Intermediate NIGHTMARES Verified 07/08/20 19:15 General Stated Complaint: Chest Pain ARGENIS: 1 Review of Systems Narrative: 04/04 Review of Systems completed and is negative except as stated above in HPI (Systems reviewed: Const, Eyes, ENT, Resp, CV, GI, , MSK, Skin, Neuro) [facility] Medical History Atrial fibrillation Cataracts, bilateral CHF (congestive heart failure) Diabetes Hyperlipidemia Hypertension PSVT (paroxysmal supraventricular tachycardia) S/P right hip fracture Urinary retention (03/31/16) Surgical History History of suprapubic catheter Status post right hip replacement Family History Other Diabetes Heart disease Hyperlipidemia Hypertension Stroke Social History Smoking/Tobacco Use Status: Former Tobacco Use Smoking risk assessment performed?: Yes Alcohol Intake: never Drug use: Never Substance use type: does not use Household members: none Do you feel safe at home: Yes Do you feel safe in your relationship?: Yes Additional Social history: Lives alone. [address] Does not drive. Exam Narrative Exam Narrative: Const: Elderly female in NAD. HEENT: NC/AT. Normal facial exam. Dry MM. Eyes: Normal conjunctiva and sclera. Neck: Supple. Trachea midline. Lungs: Normal respiratory effort. Lungs are clear. Cor: Irregular, very slow, no murmur. GI: Soft. NT/ND. Neuro: A+O x 3. Normal speech, mentation. Cranial nerves II - XII grossly intact. No gross motor or sensory deficit. Ext: No C/C/E. Skin: Warm and dry without rash. Course Vital Signs Vital signs: Vital Signs Respiratory Rate 9 L 11/25/20 19:35 Pulse Oximetry 87 L 11/25/20 19:35 Pulse 43 L 11/25/20 20:16 Pulse 70 11/25/20 20:20 Respiratory Rate 13 11/25/20 20:20 Respiratory Effort Non-Labored 11/25/20 20:06 Blood Pressure 98/50 L 11/25/20 20:16 Blood Pressure Mean 62 11/25/20 20:16 Blood Pressure Position Sitting 11/25/20 19:39 Pulse Oximetry 97 11/25/20 20:20 Oxygen Delivery Method Room Air 11/25/20 19:39 Oxygen Flow Rate 0 11/25/20 19:39 Critical Care Time Critical Care Time Critical Care Time: Yes Total Critical Care Time: 60 Attestation: Upon my evaluation, this patient had a high probability of imminent or life-threatening deterioration, which required my direct attention, intervention, and personal management. I have personally provided 60 minutes of critical care time exclusive of time spent on separately billable procedures. Time includes review of laboratory data, radiology results, discussion with consultants, and monitoring for potential decompensation. Interventions were performed as documented above.
[2020-11-25 20:35] LABS: Absolute Basophil Count 0.04 10^3/uL (0.0-0.2); Absolute Neutrophil Count 7.84 10^3/uL (1.2-6.7)
[2020-11-25 20:36] LABS: Lactate 5.4 mmol/L (0.6-1.4)
[2020-11-25 20:54] LABS: Troponin I < 0.05 ng/mL (<0.06)
[2020-11-25 20:57] LABS: ALT 63 U/L (14-59); AST 61 U/L (15-37); Albumin 3.2 g/dL (3.4-5.0); Alkaline Phosphatase 52 U/L (46-116); Anion Gap 12.4 mmol/L (3-11); BUN 33 mg/dL (7-18); Bilirubin, Total 0.4 mg/dL (0.2-1.0); CO2 18.6 mmol/L (21.0-32.0); Calcium 8.3 mg/dL (8.5-10.1); Chloride 100 mmol/L (98-107); Estimated GFR 24.49 (mL/min/1.73m2); Magnesium 1.4 mg/dL (1.8-2.4); Sodium 131 mmol/L (136-145); TSH (W/Ref FT4) 1.82 uIU/mL (0.36-3.74); Total Protein 6.8 g/dL (6.4-8.2)
--- NOTE | 2020-11-25 20:58 | DI.RAD_ITS ---
Exam(s) XR PORTABLE CHEST AP EXAM: XR PORTABLE CHEST AP CLINICAL HISTORY: chest tightness, r/o acute disease TECHNIQUE: 2D digital imaging was performed. COMPARISON: No exams were available for comparison FINDINGS: MEDIASTINUM: Normal. HEART: Normal. PULMONARY VASCULATURE: Normal. LUNGS: Clear. PLEURAL SPACE: No pleural effusion or pneumothorax. BONE:There are old left healed rib fractures. No acute osseous abnormalities identified. OTHER FINDINGS:Normal. IMPRESSION: No acute pulmonary findings. DATA REPOSITORY: RADIATION DOSE DELIVERED:
[2020-11-25 21:01] LABS: Glucose 636 mg/dL (74-106); Potassium 7.4 mmol/L (3.5-5.1)
[2020-11-25 21:09] LABS: Bilirubin Negative (Negative); Blood Large (Negative); Clarity Cloudy (Clear); Glucose 500 mg/dL (Negative); Ketones Trace mg/dL (Negative); Leukocyte Esterase Trace (Negative); Nitrite Negative (Negative); Specific Gravity >= 1.030 (1.005-1.025); Urobilinogen 0.2 EU/dL (Up TO 0.2); pH 5.5 (5-8)
[2020-11-25 21:19] LABS: C & S Indicated? Yes; WBC >50 HPF (0-5)
[2020-11-25] MEDS: Insulin REGULAR-Human 100 UNITS/ML UNIT 10 UNITS IV (21:23)
[2020-11-25] MEDS: Normal Saline 50 ML 100 ML (21:26)
[2020-11-25] MEDS: Sodium Bicarbonate 50 MEQ/50 ML SYR IVP (21:26)
[2020-11-25] MEDS: Calcium Gluconate 4.65 MEQ/10 ML VIAL 4.65 MG IVP (21:26)
[2020-11-25] MEDS: MAGNESIUM SULFATE 2 GM/50 ML BAG IVPB (21:29)
--- NOTE | 2020-11-25 22:07 | HPE_ITS ---
Date of service: 11/25/20 Time of Service: 22:07 Assessment and Plan Assessment and plan (1) Hyperosmolar hyperglycemic state (HHS): Status: Acute Assessment and plan: HHS. Will continue aggressive fluid replacement, begin insulin qtt and monitor electrolytes closely; I suspect probably total body potassium deficient, will hold on any further Lokelma, and d/c PARUL. Pyuria noted, will cover for presumed UTI with Rocephin pending cxx AF with slow rate, combination of tasia blocking agents plus HHS electrolyte disturbances. Resolving, will monitor as is for now. History of Present Illness History of Present Illness Chief Complaint: weakness Narrative: 70 female with h/o poorly controlled DM, h/o AF -- EMS called for unspecified period of weakness. On arrival pulse in 30s noted, received Atropine en route x 2. In ER pulse 31, BP 90/sys on arrival. Findings of note for glucose 636, K 7.4, Mg 1.4, HCO3 18, pH 7.32, EKG AF. Given Atropine x 1, Ca Gluconate, amp HCO3, regular insulin 10 IV, 2 gm Mg, 10 gm Lokelma and bolus IVF. Patient states she is feeling better. Cannot provide any detail as to how she has been feeling unwell. States she takes most of her meds. Review of Systems All systems reviewed & are unremarkable except as noted in HPI and below PFSH Medical History Atrial fibrillation Cataracts, bilateral CHF (congestive heart failure) Diabetes Hyperlipidemia Hypertension PSVT (paroxysmal supraventricular tachycardia) S/P right hip fracture Urinary retention (03/31/16) Surgical History History of suprapubic catheter Status post right hip replacement Family History Other Diabetes Heart disease Hyperlipidemia Hypertension Stroke Social History Smoking/Tobacco Use Status: Former Tobacco Use Smoking risk assessment performed?: Yes Alcohol Intake: never Drug use: Never Substance use type: does not use Household members: none Do you feel safe at home: Yes Do you feel safe in your relationship?: Yes Additional Social history: Lives alone. [address] Does not drive. Meds Allergies and Home Medications Allergies Allergy/AdvReac Type Severity Reaction Status Date / Time trazodone AdvReac Intermediate NIGHTMARES Verified 07/08/20 19:15 Home Medications Medication Instructions Recorded Confirmed Type omeprazole 20 mg PO DAILY 09/22/12 10/31/20 History metformin [Glucophage] 1 tab PO BID 11/24/16 11/25/20 History magnesium oxide [MagOx] 400 mg PO DAILY #30 tab 05/19/17 10/31/20 Rx atorvastatin 20 mg PO DAILY 05/16/18 11/25/20 History insulin aspart U-100 [Novolog 12 units SUB-Q BID 05/16/18 11/25/20 History PenFill U-100 Insulin] Tresiba FlexTouch U-200 45 unit SUBCUT DAILY 05/12/19 10/31/20 History lisinopril 10 mg PO DAILY 05/12/19 11/25/20 History calcitonin (salmon) 0 ml NS DAILY #30 ml 07/19/19 11/25/20 Rx calcium carbonate-vitamin D3 1 tab PO BID #60 tab 07/19/19 10/31/20 Rx [Calcium 600 + D(3)] diltiazem HCl 240 mg PO QAM #60 cap 07/19/19 11/25/20 Rx lidocaine [Lidoderm] 2 patch TOPICAL DAILY #60 ea 07/19/19 11/25/20 Rx ferrous sulfate 325 mg PO BID #60 tab 07/09/20 11/25/20 Rx diaper,brief,adult,disposable #100 ea 10/31/20 10/31/20 Rx nystatin 100,000 unit/gram topical 1 applic TOPICAL BID PRN #60 gm 10/31/20 10/31/20 Rx powder aspirin [Aspir-81] 81 mg PO DAILY 11/25/20 11/25/20 History insulin degludec [Tresiba 20 unit SUBCUT DAILY 11/25/20 11/25/20 History FlexTouch U-200] metoprolol succinate 100 mg PO BID 11/25/20 11/25/20 History rivaroxaban [Xarelto] 20 mg PO DAILY 11/25/20 11/25/20 History Exam Narrative Exam Narrative: 132/71, 72, 36.4, 23, 91-97% RA. HEENT atraumatic, oral mucosa dry; neck supple; lungs clear; heart irr/irr; abdomen soft and NT, suprapubic tube in place; extremities trace pedal edema; neuro Ox3, moves all 4s Results Labs Result diagrams: 11/25/20 20:00 11/25/20 20:00 Labs: Laboratory Results - last 24 hr 11/25/20 11/25/20 11/25/20 20:00 20:00 20:00 WBC 11.19 H RBC 4.07 Hgb 11.3 Hct 36.4 MCV 89.4 MCH 27.8 MCHC 31.0 L RDW 14.9 H Plt Count 332 MPV 11.3 H Immature Gran % 1.1 Neutrophils % 70.1 Lymphocytes % 17.2 Monocytes % 10.2 Eosinophils % 1.0 Basophils % 0.4 Nucleated RBC % 0 Absolute Neutrophils 7.84 H Absolute Lymphocytes 1.92 Absolute Monocytes 1.14 H Absolute Eosinophils 0.11 Absolute Basophils 0.04 VBG pH VBG pCO2 VBG pO2 VBG HCO3 VBG Total CO2 VBG O2 Saturation VBG Base Excess VBG Lactate 5.4 H* Sodium 131 L Potassium 7.4 H* Chloride 100 Carbon Dioxide 18.6 L Anion Gap 12.4 H BUN 33 H Creatinine 2.0 H Estimated GFR/1.73 m2 24.49 Glucose 636 H* Calcium 8.3 L Magnesium 1.4 L Total Bilirubin 0.4 AST 61 H ALT 63 H Alkaline Phosphatase 52 Troponin I Total Protein 6.8 Albumin 3.2 L TSH 1.82 Urine Color Urine Clarity Urine pH Ur Specific [place] Urine Protein Urine Ketones Urine Blood Urine Nitrite Urine Bilirubin Urine Urobilinogen Ur Leukocyte Esterase Urine RBC Urine WBC Ur Epithelial Cells Urine Crystals Urine Bacteria Urine Mucus Ur Culture Indicated? Urine Glucose 11/25/20 11/25/20 11/25/20 20:00 20:00 20:40 WBC RBC Hgb Hct MCV MCH MCHC RDW Plt Count MPV Immature Gran % Neutrophils % Lymphocytes % Monocytes % Eosinophils % Basophils % Nucleated RBC % Absolute Neutrophils Absolute Lymphocytes Absolute Monocytes Absolute Eosinophils Absolute Basophils VBG pH 7.32 VBG pCO2 35 L VBG pO2 44 VBG HCO3 18 L VBG Total CO2 17 L VBG O2 Saturation 77 VBG Base Excess -8 L VBG Lactate Sodium Potassium Chloride Carbon Dioxide Anion Gap BUN Creatinine Estimated GFR/1.73 m2 Glucose Calcium Magnesium Total Bilirubin AST ALT Alkaline Phosphatase Troponin I < 0.05 Total Protein Albumin TSH Urine Color Yellow Urine Clarity Cloudy Urine pH 5.5 Ur Specific [place] >= 1.030 H Urine Protein >=300 H Urine Ketones Trace H Urine Blood Large H Urine Nitrite Negative Urine Bilirubin Negative Urine Urobilinogen 0.2 Ur Leukocyte Esterase Trace H Urine RBC Not Applicable Urine WBC >50 H Ur Epithelial Cells Not Applicable Urine Crystals Not Applicable Urine Bacteria Not Applicable Urine Mucus Not Applicable Ur Culture Indicated? Yes Urine Glucose 500 H Last Vital Signs Pulse 48 L 11/25/20 21:06 Resp 19 11/25/20 21:01 BP 107/51 L 11/25/20 21:01 Pulse Ox 97 11/25/20 21:01 COVID-19 Screening Have you, or household traveled for leisure in last 14 days?: No
--- NOTE | 2020-11-25 22:15 | DI.VRAD_ITS ---
PROCEDURE INFORMATION: Exam: XR Chest Exam date and time: 11/25/2020 7:49 PM Age: 70 years old Clinical indication: Other: Chest tightness TECHNIQUE: Imaging protocol: XR of the chest. Views: 1 view. COMPARISON: CR XR CHEST 2V PA LATERAL 03/29/2020 3:39 PM FINDINGS: Lungs: Unremarkable. No consolidation. Pleural spaces: Unremarkable. No pleural effusion. No pneumothorax. Heart/Mediastinum: Unremarkable. No cardiomegaly. Bones/joints: Old left rib fractures. IMPRESSION: No acute finding Dictated and Authenticated by: Patsy Sanchez MD. Ordering:BRENDA Golden MD
[2020-11-25 22:34] LABS: Anion Gap 8.7 mmol/L (3-11); BUN 33 mg/dL (7-18); CO2 22.3 mmol/L (21.0-32.0); Calcium 8.5 mg/dL (8.5-10.1); Chloride 103 mmol/L (98-107); Estimated GFR 24.49 (mL/min/1.73m2); Potassium 5.8 mmol/L (3.5-5.1); Sodium 134 mmol/L (136-145)
[2020-11-25] MEDS: Sodium Zirconium Cyclosilicate 10 GM PKT PO (22:35)
[2020-11-25 22:36] LABS: Glucose 538 mg/dL (74-106)
[2020-11-25 22:40] LABS: Troponin I < 0.05 ng/mL (<0.06)
[2020-11-26] VITALS (33 sets, daily range): BP systolic 102–163; BP diastolic 78–103; PULSE 70–100; RESP 11–22; TEMP 36.3–36.7; O2SAT 90–97
[2020-11-26 00:14] LABS: COVID-19 PCR Negative (Negative); Source Nasal/Nares
[2020-11-26] MEDS: INSULIN REGULAR IN 0.9 % NACL 100 UNIT/100 ML BAG IV (00:27)
[2020-11-26] MEDS: Lactated Ringers 1,000 ML 200 ML IV ×4 (00:28→16:20)
[2020-11-26] MEDS: Normal Saline 250 ML 500 ML IV (00:36)
[2020-11-26] MEDS: cefTRIAXone 1,000 MG in Normal Saline 50 ML 100 MG IVPB (00:44)
[2020-11-26 02:11] LABS: Anion Gap 9.8 mmol/L (3-11); CO2 23.2 mmol/L (21.0-32.0); Chloride 102 mmol/L (98-107); Potassium 5.9 mmol/L (3.5-5.1); Sodium 135 mmol/L (136-145)
[2020-11-26] MEDS: Normal Saline Flush 10 ML SYR IVP ×2 (04:19→09:47)
[2020-11-26 07:15] LABS: Anion Gap 7.3 mmol/L (3-11); BUN 27 mg/dL (7-18); CO2 25.7 mmol/L (21.0-32.0); CREATININE 1.5 mg/dL (0.55-1.02); Calcium 8.5 mg/dL (8.5-10.1); Chloride 104 mmol/L (98-107); Estimated GFR 34.13 (mL/min/1.73m2); Glucose 325 mg/dL (74-106); Potassium 4.8 mmol/L (3.5-5.1); Sodium 137 mmol/L (136-145)
[2020-11-26] MEDS: Metoprolol CR 100 MG TABCR PO (07:43)
[2020-11-26] MEDS: Aspirin E.C. 81 MG TABEC PO (07:44)
[2020-11-26 11:58] LABS: Anion Gap 10.2 mmol/L (3-11); BUN 20 mg/dL (7-18); CO2 24.8 mmol/L (21.0-32.0); CREATININE 1.3 mg/dL (0.55-1.02); Calcium 8.5 mg/dL (8.5-10.1); Chloride 104 mmol/L (98-107); Estimated GFR 40.26 (mL/min/1.73m2); Glucose 249 mg/dL (74-106); Potassium 4.1 mmol/L (3.5-5.1); Sodium 139 mmol/L (136-145)
--- NOTE | 2020-11-26 12:49 | DM INPTCON_ITS ---
Date of service: 11/26/20 Time of Service: 12:49 Diabetes Inpatient Consult DESCRIPTION/ASSESSMENT: 70 year old female admitted with HHS with BS of 538 mg/dl in ER. PMH: IDDM, HLD, HTN, CHF. BMI indicates class 1 obesity. Lives with her niece who cares for her. Reports in future, would like to have her niece involved in diabetic self management education. Has lost 30 lbs in last 6 months by reducing portions. Dm meds: 12 u novolog BID, 45 u tresiba qd, metformin 500 mg BID. Most recent A1C; 10.6% indicating poorly controlled IDDM. Hope reports it has been difficult keeping her numbers in check as niece makes the meals and includes a lot of simple carbs. Hope is interested in getting a CGM to help her with day to day glycemic management. She would like to follow up as outpatient after discharge and would like senior mortgage underwriter to contact PCP and start process of getting script for Katheryn 2 CGM. Plan: senior mortgage underwriter will follow up with PCP and start process of referral to [facility] to provide CGM. Physical Damage Appraiser to call pt next week and set up outpatient diabetes self management education with herself and niece. Recommend novolog at all meals, along with tresiba for better glycemic management. Time Spent in Nutritional Counseling and Treatment: 20
--- NOTE | 2020-11-26 13:55 | INITIAL_ITS ---
- If Service Date Differs Date of service: 11/26/20 Time of Service: 13:55 Care Management Initial Assess REASON FOR HOSPITALIZATION:: [facility] PAST MEDICAL HISTORY/PAST SURGICAL HISTORY:: Medical History. Atrial fibrillation. Cataracts, bilateral. CHF (congestive heart failure). Diabetes. Hyperlipidemia. Hypertension. PSVT (paroxysmal supraventricular tachycardia). S/P right hip fracture. Urinary retention (03/31/16). Surgical History. History of suprapubic catheter. Status post right hip replacement PREVIOUS FUNCTIONAL STATUS/SOCIAL/FAMILY SUPPORTS:: Hope [place] the [place] with her nejazlyn, who lives with her rent free in exchange for help around the house including cooking, cleaning, and support when she needs it. She has a community health advocate, Zoey Noyola, who supports her in the community. S he also has support from [facility] and [facility]. She is independent at baseline, and uses a cane at baseline. CURRENT FUNCTIONAL STATUS:: Hope was sitting up in bed when CM met with her. She was pleasant and engaged in conversation. She stated that she feels much better today, and is unsure of her plan at this time, as she has not yet seen her provider. She is having a diabetes assessment today. She remains at ICU level of care at this time. CM will continue to follow. ADVANCE DIRECTIVES:: None on file, patient states she does not want one and when she dies she dies Has patient been provided with info about the portal/API?: Yes Did the patient sign up for the portal?: No CODE STATUS:: Full Code INSURANCE COVERAGE / FINANCIAL ISSUES:: MCR/ FRANCISCO J CURRENT HOME/COMMUNITY SERVICES/EQUIPMENT:: RCT, [facility], [employer], [facility] eds, [facility], [facility], [facility]. PRIMARY CARE PHYSICIAN:: Raheem Lew POTENTIAL DISCHARGE NEEDS:: Evaluations for further needs, follow up appointments. PATIENT/FAMILY EDUCATION NEEDS:: Review discharge instructions regarding activity levels and medications, discussion of self care needs including ask me three. ANTICIPATED BARRIERS TO DISCHARGE:: None identified. TRANSPORTATION:: Via private vehicle vs Bus RCT PLAN:: Anticipate Hope will return home when medically cleared with a resumption of community supports. She will be driven home via private vehicle RCT, coordinated by CM. She will follow up with her PCP and discharge plan of care. CM will continue to follow.
--- NOTE | 2020-11-26 14:50 | W.PM.PROGNOT ---
Date of Service Date of service: 11/26/20 Time of Service: 14:50 Assessment and Plan Assessment and plan (1) Hyperosmolar hyperglycemic state (HHS): Status: Acute Assessment and plan: cont. iv fluids and insulin; will convert to basal/bolus insulin this evening; decr. iv fluids. Patient admit to 3 or 4 days of missing some doses of her insulin. (2) MELVA (acute kidney injury): Status: Acute Assessment and plan: improving. she is now taking po; can decr. her iv fluid rate this evening (3) UTI (urinary tract infection): Status: Acute Assessment and plan: patient on ceftriaxone for possible UTI. she denies any hx of dysuria but admitted to occasional hematuria. I will check bladder and renal US in the a.m. check urine C&s results (right now mixed gram positives and gram negatives 10,000 to 50,000 CFU Qualifiers: Urinary tract infection type: catheter-associated UTI Indwelling urinary catheter type: cystostomy catheter Encounter type: initial encounter Qualified Code(s): T83.510A - Infection and inflammatory reaction due to cystostomy catheter, initial encounter; N39.0 - Urinary tract infection, site not specified (4) Atrial fibrillation: Status: None Assessment and plan: rate now controlled. I am not sure why she is getting bid dosing of Toprol XL. I will decr to 100 mg once per day. I will withold starting her back on her diltiazem for now. She usually is anticoagulated w/ Rivaroxaban but it is unclear as to why Dr. Hair did not reorder this. I have resumed this dose of Xarelto 20 mg daily beginning today. Qualifiers: Atrial fibrillation type: persistent (not longstanding) Qualified Code(s): I48.19 - Other persistent atrial fibrillation Subjective Subjective Interval history since last seen: Patient presented w/ HNKH w/ glucose of 636 and hyperkalemia w/ K+ of 7.4 and MELVA w/ BUN 33 and creatinine 2.0. She had mild incr. AG of 12.4 but no ketones on her urine. Her original sx included nausea, vomiting and dizziness and slow HR. On EMS evaluation she was found to be in slow afib in the 30's. See ER notes and Dr. Hair's H&P for details. She had been treated w/ multiple doses of atropine between the EMS and ER and was put on external pacer but never required pacing. Her hyperkalemia was treated w/ Lokelma and iv calcium gluconate and an ampule of bicarbonate 50 meq. She was started on iv fluids and insulin drip. Her labs have continued to improve and she is making a large amount of urine. She is feeling better. Her bradycardia resolved and Dr. Hair had to put her back on her beta alicia. She remains in afib in the 70's. She is still on insulin drip at 3 units/hr but her glucose continues to improve. Now down to 153 and her BUN and creatinine are down to 20 and 1.3 and her potassium is down to 4.1. Sodium is at 139. She should be able to come off the insulin drip and converted to basal/bolus insulin this evening. She remains on LR at 200 mL/hr. This also can be decreased. Exam Narrative Exam Narrative: Elderly white female lying in bed. She is very hard of hearing. She is watching TV. Lungs clear Heart irregularly irregular Abdomen: benign Legs/feet w/out ulcers but normal pedal pulses; thickened toenails Objective Last Vital Signs Temp 36.3 C L 11/26/20 12:00 Pulse 95 H 11/26/20 12:00 Resp 16 11/26/20 13:00 BP 143/95 H 11/26/20 12:00 Pulse Ox 97 11/26/20 13:00 Laboratory Results - last 24 hr 11/25/20 11/25/20 11/25/20 20:00 20:00 20:00 WBC 11.19 H RBC 4.07 Hgb 11.3 Hct 36.4 MCV 89.4 MCH 27.8 MCHC 31.0 L RDW 14.9 H Plt Count 332 MPV 11.3 H Immature Gran % 1.1 Neutrophils % 70.1 Lymphocytes % 17.2 Monocytes % 10.2 Eosinophils % 1.0 Basophils % 0.4 Nucleated RBC % 0 Absolute Neutrophils 7.84 H Absolute Lymphocytes 1.92 Absolute Monocytes 1.14 H Absolute Eosinophils 0.11 Absolute Basophils 0.04 VBG pH VBG pCO2 VBG pO2 VBG HCO3 VBG Total CO2 VBG O2 Saturation VBG Base Excess VBG Lactate 5.4 H* Sodium 131 L Potassium 7.4 H* Chloride 100 Carbon Dioxide 18.6 L Anion Gap 12.4 H BUN 33 H Creatinine 2.0 H Estimated GFR/1.73 m2 24.49 Glucose 636 H* Calcium 8.3 L Magnesium 1.4 L Total Bilirubin 0.4 AST 61 H ALT 63 H Alkaline Phosphatase 52 Troponin I Total Protein 6.8 Albumin 3.2 L TSH 1.82 Urine Color Urine Clarity Urine pH Ur Specific [place] Urine Protein Urine Ketones Urine Blood Urine Nitrite Urine Bilirubin Urine Urobilinogen Ur Leukocyte Esterase Urine RBC Urine WBC Ur Epithelial Cells Urine Crystals Urine Bacteria Urine Mucus Ur Culture Indicated? Urine Glucose COVID-19 Source SARS-CoV-2 (PCR) 11/25/20 11/25/20 11/25/20 20:00 20:00 20:40 WBC RBC Hgb Hct MCV MCH MCHC RDW Plt Count MPV Immature Gran % Neutrophils % Lymphocytes % Monocytes % Eosinophils % Basophils % Nucleated RBC % Absolute Neutrophils Absolute Lymphocytes Absolute Monocytes Absolute Eosinophils Absolute Basophils VBG pH 7.32 VBG pCO2 35 L VBG pO2 44 VBG HCO3 18 L VBG Total CO2 17 L VBG O2 Saturation 77 VBG Base Excess -8 L VBG Lactate Sodium Potassium Chloride Carbon Dioxide Anion Gap BUN Creatinine Estimated GFR/1.73 m2 Glucose Calcium Magnesium Total Bilirubin AST ALT Alkaline Phosphatase Troponin I < 0.05 Total Protein Albumin TSH Urine Color Yellow Urine Clarity Cloudy Urine pH 5.5 Ur Specific [place] >= 1.030 H Urine Protein >=300 H Urine Ketones Trace H Urine Blood Large H Urine Nitrite Negative Urine Bilirubin Negative Urine Urobilinogen 0.2 Ur Leukocyte Esterase Trace H Urine RBC Not Applicable Urine WBC >50 H Ur Epithelial Cells Not Applicable Urine Crystals Not Applicable Urine Bacteria Not Applicable Urine Mucus Not Applicable Ur Culture Indicated? Yes Urine Glucose 500 H COVID-19 Source SARS-CoV-2 (PCR) 11/25/20 11/25/20 11/25/20 21:40 22:10 22:10 WBC RBC Hgb Hct MCV MCH MCHC RDW Plt Count MPV Immature Gran % Neutrophils % Lymphocytes % Monocytes % Eosinophils % Basophils % Nucleated RBC % Absolute Neutrophils Absolute Lymphocytes Absolute Monocytes Absolute Eosinophils Absolute Basophils VBG pH VBG pCO2 VBG pO2 VBG HCO3 VBG Total CO2 VBG O2 Saturation VBG Base Excess VBG Lactate Sodium 134 L Potassium 5.8 H Chloride 103 Carbon Dioxide 22.3 Anion Gap 8.7 BUN 33 H Creatinine 2.0 H Estimated GFR/1.73 m2 24.49 Glucose 538 H* Calcium 8.5 Magnesium Total Bilirubin AST ALT Alkaline Phosphatase Troponin I < 0.05 Total Protein Albumin TSH Urine Color Urine Clarity Urine pH Ur Specific [place] Urine Protein Urine Ketones Urine Blood Urine Nitrite Urine Bilirubin Urine Urobilinogen Ur Leukocyte Esterase Urine RBC Urine WBC Ur Epithelial Cells Urine Crystals Urine Bacteria Urine Mucus Ur Culture Indicated? Urine Glucose COVID-19 Source Nasal/nares SARS-CoV-2 (PCR) Negative 11/25/20 11/26/20 11/26/20 22:28 01:59 06:18 WBC RBC Hgb Hct MCV MCH MCHC RDW Plt Count MPV Immature Gran % Neutrophils % Lymphocytes % Monocytes % Eosinophils % Basophils % Nucleated RBC % Absolute Neutrophils Absolute Lymphocytes Absolute Monocytes Absolute Eosinophils Absolute Basophils VBG pH VBG pCO2 VBG pO2 VBG HCO3 VBG Total CO2 VBG O2 Saturation VBG Base Excess VBG Lactate Sodium Cancelled 135 L 137 Potassium Cancelled 5.9 H 4.8 Chloride Cancelled 102 104 Carbon Dioxide Cancelled 23.2 25.7 Anion Gap Cancelled 9.8 7.3 BUN 27 H Creatinine 1.5 H Estimated GFR/1.73 m2 34.13 Glucose 325 H D Calcium 8.5 Magnesium Total Bilirubin AST ALT Alkaline Phosphatase Troponin I Total Protein Albumin TSH Urine Color Urine Clarity Urine pH Ur Specific [place] Urine Protein Urine Ketones Urine Blood Urine Nitrite Urine Bilirubin Urine Urobilinogen Ur Leukocyte Esterase Urine RBC Urine WBC Ur Epithelial Cells Urine Crystals Urine Bacteria Urine Mucus Ur Culture Indicated? Urine Glucose COVID-19 Source SARS-CoV-2 (PCR) 11/26/20 11:30 WBC RBC Hgb Hct MCV MCH MCHC RDW Plt Count MPV Immature Gran % Neutrophils % Lymphocytes % Monocytes % Eosinophils % Basophils % Nucleated RBC % Absolute Neutrophils Absolute Lymphocytes Absolute Monocytes Absolute Eosinophils Absolute Basophils VBG pH VBG pCO2 VBG pO2 VBG HCO3 VBG Total CO2 VBG O2 Saturation VBG Base Excess VBG Lactate Sodium 139 Potassium 4.1 Chloride 104 Carbon Dioxide 24.8 Anion Gap 10.2 BUN 20 H D Creatinine 1.3 H Estimated GFR/1.73 m2 40.26 Glucose 249 H D Calcium 8.5 Magnesium Total Bilirubin AST ALT Alkaline Phosphatase Troponin I Total Protein Albumin TSH Urine Color Urine Clarity Urine pH Ur Specific [place] Urine Protein Urine Ketones Urine Blood Urine Nitrite Urine Bilirubin Urine Urobilinogen Ur Leukocyte Esterase Urine RBC Urine WBC Ur Epithelial Cells Urine Crystals Urine Bacteria Urine Mucus Ur Culture Indicated? Urine Glucose COVID-19 Source SARS-CoV-2 (PCR)
[2020-11-26 16:39] LABS: Lactate 1.9 mmol/L (0.6-1.4)
[2020-11-26 16:48] LABS: Anion Gap 7.7 mmol/L (3-11); BUN 18 mg/dL (7-18); CO2 28.3 mmol/L (21.0-32.0); CREATININE 1.2 mg/dL (0.55-1.02); Calcium 8.8 mg/dL (8.5-10.1); Chloride 106 mmol/L (98-107); Estimated GFR 44.16 (mL/min/1.73m2); Glucose 113 mg/dL (74-106); Potassium 3.7 mmol/L (3.5-5.1); Sodium 142 mmol/L (136-145)
[2020-11-26] MEDS: Insulin Glargine 300 UNITS/3 ML PEN 20 UNITS SC (22:43)
[2020-11-26] MEDS: Insulin Aspart 300 UNITS/3 ML PEN SC (22:45)
[2020-11-26] MEDS: Lactated Ringers 1,000 ML 100 ML IV (23:54)
[2020-11-26] MEDS: cefTRIAXone 1 GM/50 ML BAG IVPB (23:54)
[2020-11-27] VITALS (8 sets, daily range): BP systolic 147–160; BP diastolic 79–94; PULSE 69–93; RESP 12–19; TEMP 36.4–36.5; O2SAT 92–98
[2020-11-27] MEDS: Aspirin E.C. 81 MG TABEC PO (09:17)
[2020-11-27] MEDS: Insulin Aspart 300 UNITS/3 ML PEN SC ×3 (09:17→13:04)
[2020-11-27] MEDS: Metoprolol CR 100 MG TABCR PO (09:18)
--- NOTE | 2020-11-27 11:30 | PT.INIE ---
Date of service: 11/27/20 Time of Service: 09:35 PT Notes Visit Reasons: [facility] Physical Therapy Inpatient Initial Evaluation Date: 11/27/2020 Referring Doctor: Sushant Torre MD PT Orders: PT CONSULT: Safety consult for D/C Precautions: Fall. Standard. Activity as tolerated. Patient Profile/Admitting Diagnosis: Hope is a 70-year-old female who presented to the ED on 11/25/2020 with low heart rate, low blood pressure, and generalized weakness. Patient diagnosed with hyperosmolar hyperglycemic state, acute kidney injury, urinary tract infection, and atrial fibrillation. PMHX: Medical History Atrial fibrillation Cataracts, bilateral CHF (congestive heart failure) Diabetes Hyperlipidemia Hypertension PSVT (paroxysmal supraventricular tachycardia) S/P right hip fracture Urinary retention (03/31/16) Surgical History History of suprapubic catheter Status post right hip replacement Social History/Home Situation: Lives on the third floor of the [facility] apartment. She has a ramp to enter in an elevator that leads to her apartment. Niece lives with her and does house chores and laundry. Goes to doctor's appointments through [facility]. Equipment Owned/DME: Standard walker, 4WW, FWW, SPC Subjective: Agreeable to PT consult. Denies headache, chest pain, and dizziness throughout session. Indicnates that she has had 2 falls in the past year. Objective: General Observation: Seated on chair. Telemetry monitoring in place. Mental Status: Alert and oriented as to person, place, time, and purpose. Able to pay attention, focus, and respond appropriately. Pain: 0/10 Vital Signs: WFL as closely monitored ROM: Right Upper Extremity: Shoulder Flexion WFL. Shoulder abduction WFL. Shoulder ER/IR WFL. Elbow flexion WFL. Forearm pronation/supination WFL. Wrist flexion WFL. Opening and closing of hand WFL. Left Upper Extremity: Shoulder Flexion WFL. Shoulder abduction WFL. Shoulder ER/IR WFL. Elbow flexion WFL. Forearm pronation/supination WFL. Wrist flexion WFL. Opening and closing of hand WFL. Right Lower Extremity: Hip flexion WFL. Hip abduction WFL. Hip ER/IR WFL. Knee flexion WFL. Knee extension. Ankle dorsiflexion/eversion WFL. Ankle plantarflexion/inversion WFL. Left Lower Extremity: Hip flexion WFL. Hip abduction WFL. Hip ER/IR WFL. Knee flexion WFL. Knee extension. Ankle dorsiflexion WFL. Ankle plantarflexion WFL. Strength: Right Upper Extremity: Grossly 4/5 Left Upper Extremity: Grossly 4/5 Right Lower Extremity: Grossly 4/5 Left Lower Extremity: Grossly 4/5 Bed Mobility/Transfers: Rolling independent Supine to sit independent Sit to supine independent Sit to stand independent Stand to sit independent Bed to chair supervision Chair to bed supervision Gait: Distance of 200 feet requiring standby assist. Anna decreased decreased. Step height . Step length decreased. Balance: Static Sitting: Normal Dynamic Sitting: Normal Static Standing: Good Dynamic Standing: Fair Special Tests: Mobility Limitations Standardized Measure [facility] AM-PAC 6 clicks Basic Mobility Inpatient Short Form: Raw Score: 23 CMS Score: 11% deficit Informed Consent/Education: Patient instructed in purpose of PT consult and plan of care. Agreeable to proceed with established PT POC to achieve personal goals. Assessment: Hope requires the use of a front wheeled walker for all mobility ADL performance and standby assist only of PT at time of evaluation. She is in no need of any equipment as she has them all at home. Patient presents with clinical signs and symptoms consistent with current/admitting diagnoses that have resulted to mobility limitations, gait instability, generalized weakness, and impairment of motor control as demonstrated by the following impairment level findings: 1. Decreased strength to B LE major muscle groups 2. Impaired sitting/standing balance 3. Impaired activity tolerance Impairments are contributing to the following functional limitations: 1. Inability to safely ambulate without assistive device 2. Increase completion time for mobility ADL performance [place] [id number] moderate complexity based on the following: History: 70 [id number] with past medical history as indicated above Examination: Demonstrable impairment in strength, balance, and mobility level with underlying impairments and functional limitations as exhibited above as well as deficit score of 11% utilizing the [facility] Mobility Inpatient Short Form Presentation: Stable Decision Makin moderate complexity Goals: N/A. PT evaluation and 1 treatment session only for pre-discharge safety assessment and planning. Plan of Care/Treatment Plan: N/A. PT evaluation and 1 treatment session only for predischarge safety assessment and planning. DISCHARGE RECOMMENDATIONS: Patient will benefit from home health PT services in order to progress mobility level using least restrictive assistive ambulatory device, assess home safety, identify additional equipment needs, and establish a functional maintenance program that will increase ability of patient to remain at home. TREATMENT CODE/TIME: 90616 x 29 minutes beginning at 11:30 AM. Thank you for the opportunity to participate in the care of this patient. Sue Dejesus PT, DPT, CLT [facility] [place], [place]
[2020-11-27] MEDS: Fosfomycin Tromethamine 3 GM PACKET PO (12:35)
[2020-11-27] MEDS: dilTIAZem 30 MG TAB 60 MG PO (14:33)
--- NOTE | 2020-11-27 14:33 | DSE_ITS ---
Date of service: 11/27/20 Time of Service: 14:30 DS: Diagnosis Discharge Diagnosis (1) Hyperosmolar hyperglycemic state (HHS): Status: Resolved Asessment and Plan: readily corrected w/ iv fluid hydration and iv insulin (2) MELVA (acute kidney injury): Status: Resolved Asessment and Plan: readily corrected w/ iv hydration. discharge BUN 18, creatinine 1.2 (3) UTI (urinary tract infection): Status: Resolved Asessment and Plan: treated w/ Rocephin iv and given fosfomycin on the day of discharge. no further antibiotics needed. (4) Atrial fibrillation: Status: Chronic Asessment and Plan: patient's Toprol XL dose was resumed at decr. frequency of 100 mg daily. At discharge patient was resumed on diltiazem cd at reduced dose of 120 mg daily. Discharge Plan Disposition Patient Disposition: HOME W/HOME HEALTH SERVICE Condition: Improving Discharge Details Reason For Visit: [facility] Admit Date/Time: 11/25/20 22:26 Admit Provider: Sunil Hair Attending Provider: Sunil Hair Primary Care Provider: Raheem Lew Hospital Course Hospital Course: This 70-year-old white female with a history of poorly controlled diabetes mellitus requiring insulin, history of atrial fibrillation called EMS for complaints of generalized weakness. On arrival EMS noted her pulse to be in the 30s and gave her atropine x2 doses. In the ER her pulse remained 31 in atrial fibrillation with a systolic blood pressure of 90. Blood glucose was noted to be elevated at 636 with a potassium of 7.4 and a magnesium of 1.4 and a bicarbonate of 18 with a pH of 7.32. She was given additional dose of atropine and was given calcium gluconate and an amp of bicarbonate and 10 units of regular insulin and 2 g of magnesium along with Lokelma and IV fluid bolus. She was admitted to the intensive care unit for treatment of hyperosmolar nonketotic hyperglycemia and atrial fibrillation with severe bradycardia. 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 Hair resumed her Toprol-XL to 100 mg twice a day which I reduced down to once a day. Diltiazem was withheld. Potassium level came down to 4.8 the next day. While her anion gap was minimally elevated on admission at 12.4 it rapidly corrected with IV fluids and came down to 8.7. Carbon dioxide charly to 22.3 and remained within normal limits the rest of her hospitalization. She did not require any further doses of Lokelma. Blood glucose came down overnight to 113 and she was taken off insulin drip. She was started back on basal bolus insulin therapy. She was watched for another day on basal bolus insulin treatment. On the day of discharge her fasting glucose was 96 and her lunchtime blood sugar was 241. It was learned that the patient had been skipping doses of her insulin and it sounds like she may not have had her basal insulin at home which has been Tresiba. Is unclear as to whether or not she was able to afford this. At the time of discharge I switched her to Lantus at the same dose of 20 units nightly. She was kept on her usual dose of NovoLog 12 units twice a day. Request was made for home health to follow-up with the patient as an outpatient to include nursing as well as diabetic education and home physical therapy. Physical therapy consult was obtained on the day of discharge. Please see their note for recommendations. At the time of discharge her diltiazem dose was reduced to 120 mg daily and her Toprol-XL dose was decreased in the frequency down to 100 mg once a day. An outpatient Holter was ordered for her to monitor the stability of her atrial fibrillation. Is unclear as to why she had the severe bradycardia whether it was a case of taking too many of her diltiazem and Toprol-XL or whether it was due to the acute kidney injury decreasing her clearance. Either way her renal function returned to normal and her discharge BUN was 18 and creatinine 1.2. Her atrial fibrillation was reasonably controlled at the time of discharge. Home Meds and New Rx's Prescriptions: New Lantus Solostar U-100 Insulin 100 unit/mL (3 mL) Insulin Pen 20 unit subcut HS Qty: 15 RF: 1 Continued nystatin 100,000 unit/gram powder 1 applic Topical BID PRN (Reason: itching) Qty: 60 RF: 11 (DME) Depend Underwear For Women S-M Misc 1 ea Miscellaneous TID Qty: 100 RF: 12 omeprazole 20 MG capsule,delayed release(DR/EC) 20 mg PO DAILY RF: 0 metformin [Glucophage] 1,000 MG tablet 1 tab PO BID RF: 0 magnesium oxide [MagOx] 400 MG tablet 400 mg PO DAILY Qty: 30 RF: 0 lisinopril 10 mg Tablet 10 mg PO DAILY RF: 0 aspirin 81 mg Tablet,Delayed Release (Dr/Ec) 81 mg PO DAILY RF: 0 Xarelto 20 mg tablet 20 mg PO DAILY RF: 0 atorvastatin 20 mg Tablet 20 mg PO DAILY RF: 0 insulin aspart U-100 [Novolog PenFill U-100 Insulin] 100 UNIT/ML cartridge 12 units Sub-Q BID RF: 0 calcium carbonate-vitamin D3 [Calcium 600 + D(3)] 600 mg(1,500mg) -200 unit Tablet 1 tab PO BID Qty: 60 RF: 0 calcitonin (salmon) 200 unit/actuation Wilkinson,Non-Aerosol 0 ml NS DAILY Qty: 30 RF: 0 lidocaine [Lidoderm] 5 % Adhesive Patch,Medicated 2 patch topical DAILY Qty: 60 RF: 0 ferrous sulfate 325 mg (65 mg iron) tablet,delayed release (DR/EC) 325 mg PO BID Qty: 60 RF: 0 Changed metoprolol succinate 100 mg tablet extended release 24 hr 100 mg PO DAILY Qty: 0 RF: 0 diltiazem HCl 120 mg Capsule,Extended Release 24hr 120 mg PO QAM Qty: 60 RF: 0 Discontinued Tresiba FlexTouch U-200 200 unit/mL (3 mL) Insulin Pen 45 unit SUBCUT DAILY RF: 0 Tresiba FlexTouch U-200 200 unit/mL (3 mL) insulin pen 20 unit SUBCUT DAILY RF: 0 Discharge Instructions Instructions: A-fib (Atrial Fibrillation) (DC), Diabetic Hyperglycemia (DC) Additional Instructions: you are being discharged w/ folllow up with home health nursing and physical therapy to assist you in home. You should make an appointment to see your primary care provider within the next week and you should follow up with the community nutrition educator for further instruction in management of your high glucose and what to do for sick day management w/ your insulin. Referrals: Dean Camilo [ NON-[facility] STAFF PHYSICIAN] - 12/18/20 11:30 am ([facility] will schedule your Diabetic Education appointment.) Activity:: Activity as Tolerated Equipment/Supplies:: No Equipment Needed Diet:: Carb Counting Discharge Orders Discharge Orders: Discharge Order (Routine); Ordered 11/27/20 Ordered By: Sushant Torre Discharge Data Discharge Date/Time-TO BE ENTERED AT DEPARTURE: 11/27/20 16:30 Discharge Comment: picked up from RCT DS: Summary Time Spent with Patient providing and/or coordinating discharge services: Less than 30 minutes Status at Discharge Functional status at discharge: uses cane/walker Overall status at discharge: patient is progressing back to baseline Mental Status: mental status grossly normal Speech and Movement: speech and movement normal Mood: congruent mood Affect: normal affect Exam Narrative Exam Narrative: Elderly white female sitting up in her chaire. She is very hard of hearing. She is watching TV. Lungs clear Heart irregularly irregular but controlled rate Abdomen: benign Legs/feet w/out edema Psych Mental Status: mental status grossly normal Speech and Movement: speech and movement normal Mood: congruent mood Affect: normal affect DS: Data Vitals/I&O Vitals and I&O: Vital Signs Temperature 36.4 C L 11/27/20 04:00 Temperature Source Temporal Artery Scan 11/27/20 04:00 Pulse 69 11/27/20 04:01 Pulse Rhythm Irregular 11/25/20 22:15 Pulse Strength Weak 11/25/20 22:15 Pulse 82 11/27/20 04:01 Respiratory Rate 13 11/27/20 04:01 Respiratory Effort 11/27/20 04:00 Respiratory Depth Normal 11/27/20 04:00 Respiratory Pattern Normal 11/27/20 04:00 Blood Pressure 147/80 H 11/27/20 04:01 Blood Pressure Mean 97 11/27/20 04:01 Blood Pressure Position Supine 11/26/20 16:08 Pulse Oximetry 98 11/27/20 04:01 Oxygen Delivery Method Nasal Cannula 11/27/20 06:45 Oxygen Flow Rate 2 11/27/20 06:45 Pain Level 0 11/27/20 04:00 Comment 11/25/20 21:06 Intake & Output 11/26/20 11/27/20 11/27/20 23:59 11:59 23:59 Intake Total 5.783 / 5537.016 2160 / 2210 50 / 2210 Output Total 5925 / 8225 185 / 1850 Balance -3829.217 / -2687.984 310 / 360 50 / 360 Intake: IV 1855.783 / 4202.016 1680 / 1730 50 / 1730 Oral 240 / 1335 480 / 480 Output: Urine 5925 / 8225 185 / 1850 Other: Urine Color Pale Pale Yellow Yellow Urine Appearance Clear Stool Size Small Stool Characteristics Soft Formed Brown Data Completed and Pending Labs on day of discharge: Labs from last 24 hours 11/26/20 11/26/20 16:15 16:15 VBG Lactate 1.9 H Sodium 142 Potassium 3.7 Chloride 106 Carbon Dioxide 28.3 Anion Gap 7.7 BUN 18 Creatinine 1.2 H Estimated GFR/1.73 m2 44.16 Glucose 113 H D Calcium 8.8 PFS Medical History (Updated 11/28/20 @ 07:48 by Sushant Torre) Atrial fibrillation Cataracts, bilateral CHF (congestive heart failure) Diabetes Hyperlipidemia Hypertension PSVT (paroxysmal supraventricular tachycardia) S/P right hip fracture Urinary retention (03/31/16) Surgical History History of suprapubic catheter Status post right hip replacement Family History Other Diabetes Heart disease Hyperlipidemia Hypertension Stroke Social History Smoking/Tobacco Use Status: Former Tobacco Use Smoking risk assessment performed?: Yes Alcohol Intake: never Drug use: Never Substance use type: does not use Household members: none Do you feel safe at home: Yes Do you feel safe in your relationship?: Yes Additional Social history: Lives alone. [address] Does not [address].
--- NOTE | 2020-11-27 14:41 | CHAPLAIN ---
Hope was sitting up in her chair when I visited. She said she is feeling better and described feeling like she'd snapped and was having crisscrossing thoughts before but is feeling more like her usual self now. She expects to go home today. She lives in the [facility] [address] and looks out over [facility] where she can see people using the labyrinth at the [place], and watch weddings there. Hope said her niece lives with her.
--- NOTE | 2020-11-27 15:45 | HOLTER_ITS ---
APPROVED REPORT Conclusion There is a 48-hour monitor ordered for indication of atrial fibrillation. ???The patient was in atrial fibrillation for almost the entirety of the recording with an average he art rate of 103 bpm. Peak heart rate while in atrial fibrillation was 133 bpm (for a total of 2 subha lisandro) ???There were no episodes of ventricular tachycardia and rare (1.3%) PVCs. ???There were no pauses greater than 3 seconds and no evidence of high degree heart block. ???There was 1 patient triggered event associated with baseline atrial fibrillation and a couplet.
--- NOTE | 2020-11-27 15:45 | CMDISCH_ITS ---
- If Service Date Differs Date of service: 11/27/20 Time of Service: 15:45 LACE Index Scoring Tool - Questions: Length of Stay (in days): 2 Acuity (Admit via E.D.?): Yes Comorbidities: Diabetes w/o Complication, Congestive Heart Failure E.D. Visits: 3 - Answers: Total Score: 11 Risk of Readmission: High Risk Care Management Discharge Reason for Hospitalization: [facility] Discharge Plan: Hope will return home today with new RN and PT. CM called and informed of the new referral. She will be transported via [facility] private vehicle, coordinated by RONNIE. She will follow up with her PCP, diabetic education, and her discharge plan of care. She is happy to be going home. Patient/Family Education Needs: Review discharge instructions regarding activity levels and medications, discussion of self care needs including ask me three. Services Needed at Discharge: Home Health Care Services ([facility] RN, PT), Transportation ([facility] private vehicle)
--- NOTE | 2020-11-28 08:54 | PDOC.HHF2F_ITS ---
Home Health Certification Home Health Certification: 1. Encounter Date and Reason I certify that Hope Busby was seen by Sushant Torre on 11/28/20 and that I had a [id number] encounter with this patient that meets the physician face to face encounter requirements. 2. Clinical Findings Supporting Skilled Need and Homebound Status I certify that home health services are medically necessary, include either intermittent senior care and/or physical/speech therapy, and that this pa tient is homebound in that absences from the home require considerable and taxing effort and are infrequent or of short duration, or are attributable to the need to receive medical care. [X] (a) Attached documentation from encounter provides clinical findings supporting skilled need and homebound status (including what assistance patient requires to leave the home). The encounter with the patient was in whole, or in part, for the following medical condition, which is the primary reason for home health care: [facility] Snf: to assess patient's glycemic control and to educate patient and her family on handling sick day management and adjustment of basal/bolus dosing and how to watch for hyperglycemia/hypoglycemia Physical Therapy: physical therapy to evaluate and treat for generalized weakness Speech Therapy: Homebound: patient's generalized weakness from hyperglycemia has caused her to be unsafe for travel outside her home due to ambulatory dyfunction. 3. Certification and Authentication I certify that I composed the above information based on my clinical judgement relating to this patient's medical condition and, if applicable, clinical findings communicated to me by the NPP or inpatient physician who performed the Home Health Referral. All further orders will be obtained through ____Louann Maciel NP (Community Based Physician - PCP)
== END 2020-11-27 16:30 | disposition home health service (06) | DRG 682 ==
LOC: ER 22:11 → ICU 23:01
PROVIDERS: Internal Medicine; Physician Assistant; Admitting Provider General Practice; Emergency Provider Emergency Medicine; PCP Nurse Practitioner Family; Visit Provider General Practice
DX: N17.9 Acute kidney failure, unspecified (principal); E11.00 Type 2 diabetes mellitus with hyperosmolarity without nonketotic hyperglycemic-hyperosmolar coma (NKHHC); I47.1 Supraventricular tachycardia; T83.510A Infection and inflammatory reaction due to cystostomy catheter, initial encounter; N39.0 Urinary tract infection, site not specified; E83.42 Hypomagnesemia; E87.6 Hypokalemia; R00.1 Bradycardia, unspecified; I95.9 Hypotension, unspecified; I48.91 Unspecified atrial fibrillation; I11.0 Hypertensive heart disease with heart failure; I50.9 Heart failure, unspecified; E78.5 Hyperlipidemia, unspecified; Z96.641 Presence of right artificial hip joint; R33.9 Retention of urine, unspecified; H26.8 Other specified cataract; Z79.4 Long term (current) use of insulin; Z20.822 Contact with and (suspected) exposure to COVID-19
CPT/HCPCS: 36415; 36416; 80048; 80051; 80053; 82805; 82962; 87635; 93005; 96361; 96365; 96375; 97162; 99291; 71045; 81003; 81015; 83605; 83735; 84443; 84484; 85025; 87086; 93010; 93225; 93226; 99223; 99233; J0610; J0696; J3010; J3490

== ENCOUNTER 2020-11-30 03:41 | Emergency (ER) | payer OTHER, MEDICAID, SELFPAY ==
[2020-11-30 03:42] VITALS: BP 155/83; PULSE 114; RESP 18; TEMP 36.6; O2SAT 96
--- NOTE | 2020-11-30 03:49 | W.ED.GENAD ---
Discharge Plan Disposition Patient Disposition: HOME Condition: Good Discharge Details Clinical Impression: Hip pain, right Primary Care Provider: Raheem Lew ED Provider: Cullen Ponce Home Meds and New Rx's Prescriptions: Continued nystatin 100,000 unit/gram powder 1 applic Topical BID PRN (Reason: itching) Qty: 60 RF: 11 (DME) Depend Underwear For Women S-M Misc 1 ea Miscellaneous TID Qty: 100 RF: 12 omeprazole 20 MG capsule,delayed release(DR/EC) 20 mg PO DAILY RF: 0 metformin [Glucophage] 1,000 MG tablet 1 tab PO BID RF: 0 magnesium oxide [MagOx] 400 MG tablet 400 mg PO DAILY Qty: 30 RF: 0 lisinopril 10 mg Tablet 10 mg PO DAILY RF: 0 aspirin 81 mg Tablet,Delayed Release (Dr/Ec) 81 mg PO DAILY RF: 0 Xarelto 20 mg tablet 20 mg PO DAILY RF: 0 Lantus Solostar U-100 Insulin 100 unit/mL (3 mL) Insulin Pen 20 unit subcut HS Qty: 15 RF: 1 metoprolol succinate 100 mg tablet extended release 24 hr 100 mg PO DAILY Qty: 0 RF: 0 diltiazem HCl 120 mg Capsule,Extended Release 24hr 120 mg PO QAM Qty: 60 RF: 0 atorvastatin 20 mg Tablet 20 mg PO DAILY RF: 0 insulin aspart U-100 [Novolog PenFill U-100 Insulin] 100 UNIT/ML cartridge 12 units Sub-Q BID RF: 0 calcium carbonate-vitamin D3 [Calcium 600 + D(3)] 600 mg(1,500mg) -200 unit Tablet 1 tab PO BID Qty: 60 RF: 0 calcitonin (salmon) 200 unit/actuation Herman,Non-Aerosol 0 ml NS DAILY Qty: 30 RF: 0 lidocaine [Lidoderm] 5 % Adhesive Patch,Medicated 2 patch topical DAILY Qty: 60 RF: 0 ferrous sulfate 325 mg (65 mg iron) tablet,delayed release (DR/EC) 325 mg PO BID Qty: 60 RF: 0 Discharge Instructions Instructions: Hip Pain (ED) Additional Instructions: Your x-ray shows no evidence of new problem or fracture. Please follow-up closely with the administrative program specialist for reassessment. Please use your cane and walker at all times. If you notice any worsening of your symptoms, or any new symptoms such as vomiting, diarrhea, fever, chills, shortness of breath, chest pain, numbness, weakness, or fainting , please return immediately to the emergency department for reevaluation. Please follow up with your primary care provider as soon as possible for reassessment and reevaluation. As always, it was a pleasure participating in your medical care today. Referrals: Raheem Lew NP [Primary Care Provider] - Kiko Cho MD [ [facility] STAFF PHYSICIAN] - Medical Decision Making This is a 70-year-old female with a past medical history of atrial fibrillation, poorly controlled type 2 diabetes, Xarelto use, previous right hip fracture and subsequent replacement, who presents today for evaluation of right hip pain. Patient was recently discharged from the hospital. She states that when she was discharged she was discharged without her cane. While going home she noticed some pain in her right hip. No falls, no trauma. She states that she sits throughout most of the day and does not get up much or ambulate, however this evening she felt that her leg was somewhat sore compared to normal in the hip region. She called EMS for further assistance and requested transfer to the ED for further assessment. Currently the patient admits to a small amount of pain in the right hip, but is able to move her leg. She states that the pain is worse with movement and palpation. She denies taking any Tylenol for the pain. She denies any numbness or tingling. No saddle anesthesia. No back pain. No falls or trauma. No other complaints at this time. Exam is fairly unremarkable. Patient has mild tenderness over the greater trochanter of the right hip. Otherwise no pain with logroll or any significant pain with movement. Mild achiness. Normal sensation and strength throughout the knee foot and leg in general. Suspect potential degradation of joint from previous hip replacement due to the natural course of time, less likely loosening of the orthotic device. We will get an x-ray to evaluate for any significant cracks changes or fractures although I feel this less likely as the patient has had no falls. We will give Tylenol. Of note patient does have both a cane and a walker at home. 4 4:50 AM Patient's pain is notably relieved with Tylenol. Patient feels much better. X-ray negative for acute process. Patient ambulates well and at baseline. Recommend close follow-up with her administrative program specialist and PCP. Recommend continued acetaminophen throughout the day. Discussed red flags for which to return. No evidence of acute fracture, infection, or other etiology requiring admission at this time. I have extensively reviewed the treatment plan and discharge instructions with the patient. I have addressed all patient concerns at this time. The patient was made aware of what symptoms to monitor for that would warrant a return to the emergency department. Discussed the plan with the patient, they demonstrate verbal understanding and agreement with our assessment and plan at this time. The documentation in this chart was dictated using [employer] dictation software. Please excuse any dictation errors. HPI General Date/Time Provider Initiated Documentation: 11/30/20 03:56. HPI Narrative: This is a 70-year-old female with a past medical history of atrial fibrillation, poorly controlled type 2 diabetes, Xarelto use, previous right hip fracture and subsequent replacement, who presents today for evaluation of right hip pain. Patient was recently discharged from the hospital. She states that when she was discharged she was discharged without her cane. While going home she noticed some pain in her right hip. No falls, no trauma. She states that she sits throughout most of the day and does not get up much or ambulate, however this evening she felt that her leg was somewhat sore compared to normal in the hip region. She called EMS for further assistance and requested transfer to the ED for further assessment. Currently the patient admits to a small amount of pain in the right hip, but is able to move her leg. She states that the pain is worse with movement and palpation. She denies taking any Tylenol for the pain. She denies any numbness or tingling. No saddle anesthesia. No back pain. No falls or trauma. No other complaints at this time. Related Data Home Medications Medication Instructions Recorded Confirmed omeprazole 20 mg PO DAILY 09/22/12 10/31/20 metformin [Glucophage] 1 tab PO BID 11/24/16 11/25/20 magnesium oxide [MagOx] 400 mg PO DAILY #30 tab 05/19/17 10/31/20 atorvastatin 20 mg PO DAILY 05/16/18 11/25/20 insulin aspart U-100 [Novolog 12 units SUB-Q BID 05/16/18 11/25/20 PenFill U-100 Insulin] lisinopril 10 mg PO DAILY 05/12/19 11/25/20 calcitonin (salmon) 0 ml NS DAILY #30 ml 07/19/19 11/25/20 calcium carbonate-vitamin D3 1 tab PO BID #60 tab 07/19/19 10/31/20 [Calcium 600 + D(3)] lidocaine [Lidoderm] 2 patch TOPICAL DAILY #60 ea 07/19/19 11/25/20 ferrous sulfate 325 mg PO BID #60 tab 07/09/20 11/25/20 diaper,brief,adult,disposable #100 ea 10/31/20 10/31/20 nystatin 100,000 unit/gram topical 1 applic TOPICAL BID PRN #60 gm 10/31/20 10/31/20 powder Xarelto 20 mg PO DAILY 11/25/20 11/25/20 aspirin 81 mg PO DAILY 11/25/20 11/25/20 Lantus Solostar U-100 Insulin 20 unit SUBCUT HS #15 ml 11/27/20 diltiazem HCl 120 mg PO QAM #60 cap 11/27/20 11/25/20 metoprolol succinate 100 mg PO DAILY #0 tab 11/27/20 11/25/20 Previous Rx's Medication Instructions Recorded magnesium oxide [MagOx] 400 mg PO DAILY #30 tab 05/19/17 calcitonin (salmon) 0 ml NS DAILY #30 ml 07/19/19 calcium carbonate-vitamin D3 1 tab PO BID #60 tab 07/19/19 [Calcium 600 + D(3)] lidocaine [Lidoderm] 2 patch TOPICAL DAILY #60 ea 07/19/19 ferrous sulfate 325 mg PO BID #60 tab 07/09/20 diaper,brief,adult,disposable #100 ea 10/31/20 nystatin 100,000 unit/gram topical 1 applic TOPICAL BID PRN #60 gm 10/31/20 powder Lantus Solostar U-100 Insulin 20 unit SUBCUT HS #15 ml 11/27/20 diltiazem HCl 120 mg PO QAM #60 cap 11/27/20 metoprolol succinate 100 mg PO DAILY #0 tab 11/27/20 Allergies Allergy/AdvReac Type Severity Reaction Status Date / Time trazodone AdvReac Intermediate NIGHTMARES Verified 07/08/20 19:15 General Stated Complaint: Orthopedic ARGENIS: 4 Review of Systems All systems reviewed & are unremarkable except as noted in HPI and below PFSH Medical History Atrial fibrillation Cataracts, bilateral CHF (congestive heart failure) Diabetes Hyperlipidemia Hypertension PSVT (paroxysmal supraventricular tachycardia) S/P right hip fracture Urinary retention (03/31/16) Surgical History History of suprapubic catheter Status post right hip replacement Family History Other Diabetes Heart disease Hyperlipidemia Hypertension Stroke Social History Smoking/Tobacco Use Status: Former Tobacco Use Smoking risk assessment performed?: Yes Alcohol Intake: never Drug use: Never Substance use type: does not use Household members: none Do you feel safe at home: Yes Do you feel safe in your relationship?: Yes Additional Social history: Lives alone. [address] Does not [address]. Exam Narrative Exam Narrative: 1.Const: Well-nourished, Well-developed, appearing stated age 2.Eyes: PERRL, no conjunctival injection, and symmetrical lids. 3.ENT: Atraumatic external nose and ears. Moist MM. Neck: Symmetric, trachea midline, No thyromegaly. 4.CVS: +S1/S2, No murmurs or gallops. Peripheral pulses 2+ and equal in all extremities. Brisk capillary refill in all extremities. 5.RESP: Unlabored respiratory effort. Clear to auscultation bilaterally. No wheezes rales or rhonchi 6.GI: Soft, Nontender/Nondistended, No hepatosplenomegaly. No guarding or rebound. 7.MSK: Normocephalic/Atraumatic, Extremities w/o deformity or ttp No cyanosis or clubbing, Normal movement of all extremities. Patient is able to flex and extend hip without pain or difficulty. Logroll is negative for pain for the right hip. Mild tenderness over the greater trochanter. Normal sensation for the foot, saddle region, and leg. Good dorsalis pedis and posterior tibial pulse. Good capillary refill. Good movement of the knee and foot. Normal strength throughout. 8.Skin: Warm, Dry. No rashes or lesions. 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 Sensation grossly intact, no focal neurologic deficits. 10.Psych: (AAO) x3. Appropriate mood and affect Course Vital Signs Vital signs: Vital Signs Temperature 36.6 C 11/30/20 03:42 Pulse 114 H 11/30/20 03:42 Respiratory Rate 18 11/30/20 03:42 Blood Pressure 155/83 H 11/30/20 03:42 Pulse Oximetry 96 11/30/20 03:42 Temperature 36.6 C 11/30/20 03:42 Temperature Source Skin 11/30/20 03:42 Pulse 114 H 11/30/20 03:42 Respiratory Rate 18 11/30/20 03:42 Respiratory Effort Non-Labored 11/30/20 03:47 Blood Pressure 155/83 H 11/30/20 03:42 Pulse Oximetry 96 11/30/20 03:42 Oxygen Delivery Method Room Air 11/30/20 03:42 Oxygen Flow Rate 0 11/30/20 03:42 Pain Level 8 11/30/20 03:48
--- NOTE | 2020-11-30 04:11 | DI.RAD_ITS ---
Exam(s) XR HIP RT COMPLETE AP PELVIS EXAM: XR HIP RT COMPLETE AP PELVIS CLINICAL HISTORY: right hip pain, r/o fx. TECHNIQUE: 2D digital imaging was performed. COMPARISON: No exams were available for comparison FINDINGS: BONES: No acute fracture is present. No bony destructive lesion is seen. JOINTS: No dislocation present. The patient has a right hip replacement which appears intact. SOFT TISSUE: Normal. IMPRESSION: No acute fracture or dislocation. DATA REPOSITORY: RADIATION DOSE DELIVERED:
[2020-11-30] MEDS: Acetaminophen 500 MG TAB 1000 MG PO (04:16)
--- NOTE | 2020-11-30 04:37 | DI.VRAD_ITS ---
PROCEDURE INFORMATION: Exam: XR Right Hip Exam date and time: 11/30/2020 3:48 AM Age: 70 years old Clinical indication: Hip pain; Right hip; Prior surgery; Surgery date: 6+ months; Surgery type: Thr TECHNIQUE: Imaging protocol: XR Right hip. Views: 2 or 3 views hip with pelvis when performed. COMPARISON: CT ABDOMEN PELVIS WO 07/08/2020 9:04 PM FINDINGS: Bones/joints: right hip prosthesis with intact hardware. No acute fracture. Soft tissues: Unremarkable. IMPRESSION: No acute finding. Dictated and Authenticated by: Guillermo Anderson MD. Ordering:CARLEY Berman MD
[2020-11-30 06:20] VITALS: PULSE 100; RESP 20; O2SAT 97
== END 2020-11-30 06:20 | disposition home or self-care (01) ==
LOC: ER 04:51
PROVIDERS: Emergency Provider Student in an Organized Health Care Education/Training Program; PCP Nurse Practitioner Family
DX: M25.551 Pain in right hip (principal)
CPT/HCPCS: 99283; 73502; 99282

== ENCOUNTER → 2020-12-05 09:21 | Outpatient (BNVA) | payer OTHER, MEDICAID, SELFPAY | PROVIDERS: PCP Nurse Practitioner Family; Referring Provider Nurse Practitioner Family; Visit Provider Nurse Practitioner Gerontology | DX: R33.8 Other retention of urine (principal); R32 Unspecified urinary incontinence; Z43.5 Encounter for attention to cystostomy | CPT/HCPCS: 51705 ==

== ENCOUNTER → 2021-01-02 09:18 | Outpatient (BNVA) | payer OTHER, MEDICAID, SELFPAY | PROVIDERS: PCP Nurse Practitioner Family; Referring Provider Nurse Practitioner Family; Visit Provider Nurse Practitioner Gerontology | DX: R33.8 Other retention of urine (principal); R32 Unspecified urinary incontinence; Z43.5 Encounter for attention to cystostomy | CPT/HCPCS: 51705 ==

== ENCOUNTER 2021-01-14 16:04 | Outpatient (CLI) | payer OTHER, MEDICAID, MEDICARE, SELFPAY ==
--- NOTE | 2021-01-14 15:45 | DI.RAD_ITS ---
Exam(s) XR ANKLE RT COMPLETE EXAM: XR ANKLE RT COMPLETE CLINICAL HISTORY: right ankle pain. TECHNIQUE: 2D digital imaging was performed. COMPARISON: CR RIGHT ANKLE COMPLETE from 01/07/2018 FINDINGS: BONES: No acute fracture is present. No bony destructive lesion is seen. There is an enthesophyte at the Achilles insertion site. There is a small plantar calcaneal spur. JOINTS: The ankle mortise is normally aligned. SOFT TISSUE: Mild soft tissue swelling about the ankle. IMPRESSION: No acute fracture or dislocation. Mild soft tissue swelling about the ankle. DATA REPOSITORY: RADIATION DOSE DELIVERED:
--- NOTE | 2021-01-14 15:45 | DI.RAD_ITS ---
Exam(s) XR KNEE RT 3V AP,LAT,NADEGE EXAM: XR KNEE RT 3V AP,LAT,NADEGE CLINICAL HISTORY: right ankle pain. TECHNIQUE: 2D digital imaging was performed. COMPARISON: No exams were available for comparison FINDINGS: BONES: No acute fracture is present. No bony destructive lesion is seen. Enthesophytes are seen at jose th the superior and inferior patella. JOINTS: The knee is normally aligned. No joint effusion is seen. Minimal degenerative changes are see n in the knee. SOFT TISSUE: Atherosclerosis. IMPRESSION: Minimal degenerative changes of the right knee. DATA REPOSITORY: RADIATION DOSE DELIVERED:
== END 2021-01-14 16:05 | disposition home or self-care (01) ==
LOC: DIORS 16:05
PROVIDERS: PCP Nurse Practitioner Family; Referring Provider Nurse Practitioner Family; Visit Provider Student in an Organized Health Care Education/Training Program
DX: M25.571 Pain in right ankle and joints of right foot (principal); S93.401A Sprain of unspecified ligament of right ankle, initial encounter; M70.61 Trochanteric bursitis, right hip; W19.XXXA Unspecified fall, initial encounter; E11.69 Type 2 diabetes mellitus with other specified complication; M25.561 Pain in right knee
CPT/HCPCS: 73562; 99214; 73610

== ENCOUNTER → 2021-03-07 09:26 | Outpatient (BNVA) | payer OTHER, MEDICAID, MEDICARE, SELFPAY | PROVIDERS: PCP Physician Assistant; Referring Provider Nurse Practitioner Family; Visit Provider Nurse Practitioner Gerontology | DX: R33.8 Other retention of urine (principal); R32 Unspecified urinary incontinence; Z43.5 Encounter for attention to cystostomy | CPT/HCPCS: 51705 ==

== ENCOUNTER → 2021-04-04 09:20 | Outpatient (BNVA) | payer MEDICARE, MEDICAID, SELFPAY | PROVIDERS: PCP Physician Assistant; Referring Provider Physician Assistant; Visit Provider Nurse Practitioner Gerontology | DX: R33.8 Other retention of urine (principal); Z43.5 Encounter for attention to cystostomy; R32 Unspecified urinary incontinence; R21 Rash and other nonspecific skin eruption | CPT/HCPCS: 51705; 99213 ==

== ENCOUNTER → 2021-05-02 09:19 | Outpatient (BNVA) | payer MEDICARE, MEDICAID, SELFPAY | PROVIDERS: PCP Physician Assistant; Referring Provider Physician Assistant; Visit Provider Nurse Practitioner Gerontology | DX: R33.9 Retention of urine, unspecified (principal); R32 Unspecified urinary incontinence; Z43.5 Encounter for attention to cystostomy | CPT/HCPCS: 51705 ==

== ENCOUNTER 2021-05-03 14:50 | Outpatient (REF) | payer MEDICARE, MEDICAID, SELFPAY ==
[2021-05-03 15:14] LABS: HCT 37.6 % (36.0-46.0); HGB 11.6 g/dL (11.2-15.7); MCH 27.9 pg (27.0-33.0); MCHC 30.9 % (32.0-36.0); MCV 90.4 fL (80-95); MPV 11.3 fL (8.0-11.0); Platelet Count 326 10^3/uL (130-400); RBC 4.16 10^6/uL (3.93-5.22); RDW 13.4 % (11.7-14.6); RDW-SD 44.5 fL; WBC 6.79 10^3/uL (4.4-10.8)
[2021-05-03 15:59] LABS: Albumin 3.6 g/dL (3.4-5.0); Alkaline Phosphatase 56 U/L (46-116); BUN 22 mg/dL (7-18); Bilirubin, Total 0.3 mg/dL (0.2-1.0); CREATININE 1.1 mg/dL (0.55-1.02); Calcium 9.2 mg/dL (8.5-10.1); Calculated LDL 52 mg/dL (<100); Cholesterol 129 mg/dL (<200); Estimated GFR 48.82 (mL/min/1.73m2); Glucose 350 mg/dL (74-106); HDL Cholesterol 60 mg/dL (40-60); Total Protein 7.4 g/dL (6.4-8.2); Triglyceride 85 mg/dL (<150)
[2021-05-03 16:00] LABS: ALT 19 U/L (14-59); AST 13 U/L (15-37); Anion Gap 9.8 mmol/L (3-11); CO2 25.2 mmol/L (21.0-32.0); Chloride 102 mmol/L (98-107); Potassium 5.3 mmol/L (3.5-5.1); Sodium 137 mmol/L (136-145)
[2021-05-03 17:17] LABS: Hemoglobin A1C 10.9 % (<5.7)
== END 2021-05-03 14:51 | disposition home or self-care (01) ==
LOC: NCHCN 14:50
PROVIDERS: PCP Physician Assistant; Visit Provider Physician Assistant
DX: D64.9 Anemia, unspecified; E11.40 Type 2 diabetes mellitus with diabetic neuropathy, unspecified; E78.5 Hyperlipidemia, unspecified
CPT/HCPCS: 80053; 80061; 85027; 83036

== ENCOUNTER → 2021-05-30 09:19 | Outpatient (BNVA) | payer MEDICARE, MEDICAID, SELFPAY | PROVIDERS: PCP Physician Assistant; Referring Provider Physician Assistant; Visit Provider Nurse Practitioner Gerontology | DX: R33.8 Other retention of urine (principal); R32 Unspecified urinary incontinence; Z43.5 Encounter for attention to cystostomy | CPT/HCPCS: 51705 ==

== ENCOUNTER 2021-06-13 00:44 | Emergency (ER) | payer MEDICARE, MEDICAID, SELFPAY ==
--- NOTE | 2021-06-13 00:45 | DI.CT_ITS ---
Exam(s) CT HEAD FACIAL WO EXAM: CT HEAD FACIAL WO CLINICAL HISTORY: trauma/fall. TECHNIQUE: Imaging Protocol: Axial computed tomography images with coronal and sagittal reformatted images were created and reviewed COMPARISON: CT CT HEAD WO from 03/29/2020 FINDINGS: Head CT: Ventricles and Extra axial spaces: Normal in size and morphology for the patient's age. Hemorrhage: None. Cerebral parenchyma: Minimal atrophy. Mild white matter changes consistent with small vessel disea se. Midline shift: None. Brainstem/Cerebellum: Normal. Calvarium: Normal. Visualized Paranasal sinuses/Mastoids: Mucous retention anteromedial right maxillary sinus. Facial CT: No facial fractures. Globes are intact. Mucosal thickening and mucous retention in the right maxill geronimo sinus. IMPRESSION: No acute intracranial abnormality.No facial fractures. RADIATION DOSE DELIVERED: 1,199.39mGy.cm Total DLP DATA REPOSITORY: All CT scans at this facility are submitted to the National Radiology Data Registry (NRDR) Dose Index Registry (DIR) with the [employer] (A[employer]). RADIATION OPTIMIZATION: All CT scans at this facility use at least one of these dose optimization te chniques: automated exposure control; mA and/or kV adjustment per patient size (includes targeted exa ms where dose is matched to clinical indication); or iterative reconstruction.
--- NOTE | 2021-06-13 00:45 | ED.GENADUL_ITS ---
Discharge Plan Disposition Patient Disposition: HOME Condition: Good Discharge Details Clinical Impression: Scalp contusion, Abrasion of face, Fall at home Primary Care Provider: Dean Camilo ED Provider: Andi Contreras [place] Meds and New Rx's Prescriptions: Continued nystatin 100,000 unit/gram powder 1 applic Topical BID PRN (Reason: itching) Qty: 60 RF: 11 (DME) Depend Underwear For Women S-M Misc 1 ea Miscellaneous TID Qty: 100 RF: 12 diclofenac sodium 1 % gel 4 g topical QID Qty: 100 RF: 1 Chair liners (CHUX) 1 ea miscellaneous BID PRN Qty: 60 RF: 11 omeprazole 20 MG capsule,delayed release(DR/EC) 20 mg PO DAILY RF: 0 metformin [Glucophage] 1,000 MG tablet 1 tab PO BID RF: 0 magnesium oxide [MagOx] 400 MG tablet 400 mg PO DAILY Qty: 30 RF: 0 lisinopril 10 mg Tablet 10 mg PO DAILY RF: 0 aspirin 81 mg Tablet,Delayed Release (Dr/Ec) 81 mg PO DAILY RF: 0 Xarelto 20 mg tablet 20 mg PO DAILY RF: 0 Lantus Solostar U-100 Insulin 100 unit/mL (3 mL) Insulin Pen 20 unit subcut HS Qty: 15 RF: 1 metoprolol succinate 100 mg tablet extended release 24 hr 100 mg PO DAILY Qty: 0 RF: 0 diltiazem HCl 120 mg Capsule,Extended Release 24hr 120 mg PO QAM Qty: 60 RF: 0 atorvastatin 20 mg Tablet 20 mg PO DAILY RF: 0 insulin aspart U-100 [Novolog PenFill U-100 Insulin] 100 UNIT/ML cartridge 12 units Sub-Q BID RF: 0 calcium carbonate-vitamin D3 [Calcium 600 + D(3)] 600 mg(1,500mg) -200 unit Tablet 1 tab PO BID Qty: 60 RF: 0 calcitonin (salmon) 200 unit/actuation [place],Non-Aerosol 0 ml NS DAILY Qty: 30 RF: 0 lidocaine [Lidoderm] 5 % Adhesive Patch,Medicated 2 patch topical DAILY Qty: 60 RF: 0 ferrous sulfate 325 mg (65 mg iron) tablet,delayed release (DR/EC) 325 mg PO BID Qty: 60 RF: 0 Discharge Instructions Instructions: Head Injury (ED) Additional Instructions: CT scan of the head and face reveal no traumatic injury, specifically no bleeding within the skull and no fractures. You may apply ice to the hematoma of your scalp to help with pain and swelling. You may take Tylenol if needed. Return to ED for severe worsening headache, confusion, persistent vomiting, neurologic change. Follow-up with primary care as needed. Medical Decision Making Status post fall out of her recliner with head and face injury. She is on Xarelto but has no neurologic symptoms and minimal if any headache. Pain is related to the hematoma of the left parietal scalp. Cervical spine is cleared clinically. CT scan of head and face ordered. CT head and face are negative for acute traumatic injury. Patient will be discharged home with instructions to return for worsening headache, persistent vomiting, confusion, neurologic change. HPI General Mode of arrival: EMS . Date/Time Provider Initiated Documentation: 06/13/21 00:45 . Limitations to Documentation: no limitations . Information obtained by: patient, RN notes reviewed and old records reviewed . HPI Narrative: Patient presents to ED by ambulance after falling out of her recliner and striking her head and face. She had fallen asleep in the recliner when she fell out of it. She was not able to get up. She dragged herself across the floor to the phone and called EMS. She complains of head and face pain. She is on Xarelto. She has no neurologic change, neck pain, chest pain, shortness of breath, extremity pain or deformity. Related Data Home Medications Medication Instructions Recorded Confirmed omeprazole 20 mg PO DAILY 09/22/12 06/13/21 metformin [Glucophage] 1 tab PO BID 11/24/16 06/13/21 magnesium oxide [MagOx] 400 mg PO DAILY #30 tab 05/19/17 06/13/21 atorvastatin 20 mg PO DAILY 05/16/18 06/13/21 insulin aspart U-100 [Novolog 12 units SUB-Q BID 05/16/18 06/13/21 PenFill U-100 Insulin] lisinopril 10 mg PO DAILY 05/12/19 06/13/21 calcitonin (salmon) 0 ml NS DAILY #30 ml 07/19/19 06/13/21 calcium carbonate-vitamin D3 1 tab PO BID #60 tab 07/19/19 06/13/21 [Calcium 600 + D(3)] lidocaine [Lidoderm] 2 patch TOPICAL DAILY #60 ea 07/19/19 06/13/21 ferrous sulfate 325 mg PO BID #60 tab 07/09/20 06/13/21 diaper,brief,adult,disposable #100 ea 10/31/20 05/02/21 nystatin 100,000 unit/gram topical 1 applic TOPICAL BID PRN #60 gm 10/31/20 06/13/21 powder Xarelto 20 mg PO DAILY 11/25/20 06/13/21 aspirin 81 mg PO DAILY 11/25/20 06/13/21 Lantus Solostar U-100 Insulin 20 unit SUBCUT HS #15 ml 11/27/20 06/13/21 diltiazem HCl 120 mg PO QAM #60 cap 11/27/20 06/13/21 metoprolol succinate 100 mg PO DAILY #0 tab 11/27/20 06/13/21 Chair liners (CHUX) 1 ea MISCELLANEOUS BID PRN #60 ea 12/06/20 05/02/21 diclofenac sodium 1 % topical gel 4 g TOPICAL QID #100 g 01/14/21 06/13/21 Previous Rx's Medication Instructions Recorded magnesium oxide [MagOx] 400 mg PO DAILY #30 tab 05/19/17 calcitonin (salmon) 0 ml NS DAILY #30 ml 07/19/19 calcium carbonate-vitamin D3 1 tab PO BID #60 tab 07/19/19 [Calcium 600 + D(3)] lidocaine [Lidoderm] 2 patch TOPICAL DAILY #60 ea 07/19/19 ferrous sulfate 325 mg PO BID #60 tab 07/09/20 diaper,brief,adult,disposable #100 ea 10/31/20 nystatin 100,000 unit/gram topical 1 applic TOPICAL BID PRN #60 gm 10/31/20 powder Lantus Solostar U-100 Insulin 20 unit SUBCUT HS #15 ml 11/27/20 diltiazem HCl 120 mg PO QAM #60 cap 11/27/20 metoprolol succinate 100 mg PO DAILY #0 tab 11/27/20 Chair liners (CHUX) 1 ea MISCELLANEOUS BID PRN #60 ea 12/06/20 diclofenac sodium 1 % topical gel 4 g TOPICAL QID #100 g 01/14/21 Allergies Allergy/AdvReac Type Severity Reaction Status Date / Time trazodone AdvReac Intermediate NIGHTMARES Verified 06/13/21 00:49 General ARGENIS: 4 Review of Systems Narrative: As documented in HPI otherwise negative as below. Const: no fever, chills, weakness Resp: no cough, SOB, pleuritic pain CV: no CP, diaphoresis, edema, syncope GI: no abdominal pain, nausea, vomiting, diarrhea Neuro: no numbness, focal weakness, confusion PFSH All Active Problems (Updated 06/13/21 @ 01:59 by Andi Contreras MD) Scalp contusion (Acute) Abrasion of face (Acute) Fall at home (Acute) Trochanteric bursitis, right hip (Acute) Right ankle sprain (Acute) Hip pain, right (Acute) GI bleed (Acute) Fracture, lumbar vertebra, compression (Acute) Multiple rib fractures involving four or more ribs (Acute) Hypomagnesemia (Acute) PSVT (paroxysmal supraventricular tachycardia) (Acute) Urinary retention (Acute 03/31/16) Poorly controlled diabetes mellitus (Chronic) Transient neurologic deficit (Acute) Fungal dermatitis (Acute) Atrial flutter (Acute) Vaginal bleeding, abnormal (Acute) Atrial fibrillation and flutter (Chronic) Poorly controlled type 2 diabetes mellitus (Acute) Hypomagnesemia (Acute) Diabetes mellitus type 2 in obese (Acute) Fracture of femoral neck, right (Acute) Retention, urine (Acute) Hyperkalemia (Acute) Medical History Atrial fibrillation Cataracts, bilateral CHF (congestive heart failure) Diabetes Hyperlipidemia Hypertension S/P right hip fracture TIA (transient ischemic attack) Surgical History History of suprapubic catheter Status post right hip replacement Family History Other Diabetes Heart disease Hyperlipidemia Hypertension Stroke Social History Smoking/Tobacco Use Status: Former Tobacco Use Smoking risk assessment performed?: Yes Alcohol Intake: never Drug use: Never Substance use type: does not use Household members: none Do you feel safe at home: Yes Do you feel safe in your relationship?: Yes Additional Social history: Lives alone[address] Does not drive. Exam Narrative Exam Narrative: Const: Obese elderly female in NAD. HEENT: NC. Left sided parietal hematoma/abrasion. Left periorbital abrasion with some tenderness. Eyes: EOMI Neck: Supple. Trachea midline. No posterior midline tenderness. Lungs: Normal respiratory effort. Lungs are clear. No chest wall tenderness. Cor: RRR without murmur/gallop. Good radial pulses. GI: Soft. NT/ND Neuro: A+O x 3. Normal speech, mentation, gait. Cranial nerves II - XII grossly intact. No gross motor or sensory deficit. Ext: No deformity or tenderness with good ROM Skin: Warm and dry without lacs.
[2021-06-13 00:46] VITALS: BP 147/88; PULSE 95; RESP 18; TEMP 36.2; O2SAT 96
--- NOTE | 2021-06-13 01:53 | DI.VRAD_ITS ---
PROCEDURE INFORMATION: Exam: CT Head Without Contrast Exam date and time: 06/13/2021 12:55 AM Age: 71 years old Clinical indication: Other: Fall TECHNIQUE: Imaging protocol: Computed tomography of the head without contrast. COMPARISON: CT HEAD WO 03/29/2020 3:34 PM FINDINGS: Brain: Normal. No hemorrhage. Unremarkable white matter. No mass effect. Extra-axial space: No evidence of subdural hemorrhage. Cerebral ventricles: No ventriculomegaly. Paranasal sinuses: Moderate mucosal thickening noted in the right maxillary sinus. Mastoid air cells: Visualized mastoid air cells are well aerated. Vasculature: Moderate calcifications noted in the vertebral and carotid arteries. Bones/joints: Unremarkable. No acute fracture. Soft tissues: Unremarkable. IMPRESSION: Negative for intracranial hemorrhage or other acute intracranial abnormality. PROCEDURE INFORMATION: Exam: CT Maxillofacial Without Contrast Exam date and time: 06/13/2021 12:55 AM Age: 71 years old Clinical indication: Other: Fall TECHNIQUE: Imaging protocol: Computed tomography images of the face without contrast. COMPARISON: CT HEAD WO 03/29/2020 3:34 PM FINDINGS: Orbital cavity: Orbits are normal. Globes are unremarkable. Bones/joints: No acute fracture. Maxillary and mandibular alveolar ridges are atrophic. Patient is edentulous. Paranasal sinuses: Moderate mucosal thickening noted in the right maxillary sinus. Mild mucosal thickening present in ethmoid air cells. No air-fluid levels. Soft tissues: Unremarkable. IMPRESSION: No acute osseous abnormality. If symptoms persist, follow-up imaging advised. Dictated and Authenticated by: Guillermo Monaco MD. Ordering:AKOSUA Escamilla MD
[2021-06-13 02:38] VITALS: BP 138/76; PULSE 68; RESP 18; TEMP 36.4; O2SAT 98
== END 2021-06-13 02:39 | disposition home or self-care (01) ==
LOC: ER 02:06
PROVIDERS: Emergency Provider Emergency Medicine; PCP Physician Assistant
DX: S00.03XA Contusion of scalp, initial encounter (principal); S00.212A Abrasion of left eyelid and periocular area, initial encounter; W07.XXXA Fall from chair, initial encounter; I48.91 Unspecified atrial fibrillation; Z79.01 Long term (current) use of anticoagulants
CPT/HCPCS: 99284; 70450; 70486; 99283

== ENCOUNTER → 2021-06-26 09:24 | Outpatient (BNVA) | payer MEDICARE, MEDICAID, SELFPAY | PROVIDERS: PCP Physician Assistant; Visit Provider Nurse Practitioner Gerontology | DX: R33.9 Retention of urine, unspecified (principal); R32 Unspecified urinary incontinence; Z43.5 Encounter for attention to cystostomy | CPT/HCPCS: 51705 ==

== ENCOUNTER 2021-07-10 16:05 | Outpatient (REF) | payer MEDICARE, MEDICAID, SELFPAY | END 2021-07-10 16:06 | disposition home or self-care (01) | LOC: NCHCN 16:05 | PROVIDERS: PCP Physician Assistant; Visit Provider Family Medicine | DX: E11.622 Type 2 diabetes mellitus with other skin ulcer (principal) | CPT/HCPCS: 87077; 87070; 87186; 87205 ==

== ENCOUNTER 2021-07-30 23:15 | Inpatient (IN) | payer MEDICARE, MEDICAID, SELFPAY ==
[2021-07-30] VITALS (7 sets, daily range): BP systolic 180–193; BP diastolic 112–120; PULSE 96–141; RESP 10–20; TEMP 36.6; O2SAT 95–98
--- NOTE | 2021-07-30 23:00 | RT.EKG_ITS ---
APPROVED REPORT Exam: Resting ECG Reason for Exam: confusion Patient Location: E HR:108 bpm ECG Measurements Heart Rate 108 AXIS TN [id number] P [id number] QRSd 88 QRS 34 QT 336 T 51 QTc 450 Conclusion Atrial fibrillation...V-rate 71-124, irreg A-activity Low voltage, extremity and precordial leads...extremity<0.5mV, precordial<1.0mV
--- NOTE | 2021-07-30 23:35 | ED.GENADUL_ITS ---
Discharge Plan Disposition Patient Disposition: [facility] INPATIENT Condition: Serious Discharge Details Chief Complaint: Diabetes Clinical Impression: Retention, urine, Hyperglycemia, Urinary tract infection, Altered mental status, Hyperkalemia Primary Care Provider: Dean Camilo ED Provider: Guillermo Ford Home Meds and New Rx's Prescriptions: No Action nystatin 100,000 unit/gram powder 1 applic Topical BID PRN (Reason: itching) Qty: 60 RF: 11 (DME) Depend Underwear For Women S-M Misc 1 ea Miscellaneous TID Qty: 100 RF: 12 diclofenac sodium 1 % gel 4 g topical QID Qty: 100 RF: 1 Chair liners (CHUX) 1 ea miscellaneous BID PRN Qty: 60 RF: 11 omeprazole 20 MG capsule,delayed release(DR/EC) 20 mg PO DAILY RF: 0 metformin [Glucophage] 1,000 MG tablet 1 tab PO BID RF: 0 magnesium oxide [MagOx] 400 MG tablet 400 mg PO DAILY Qty: 30 RF: 0 lisinopril 10 mg Tablet 10 mg PO DAILY RF: 0 aspirin 81 mg Tablet,Delayed Release (Dr/Ec) 81 mg PO DAILY RF: 0 Lantus Solostar U-100 Insulin 100 unit/mL (3 mL) Insulin Pen 20 unit subcut HS Qty: 15 RF: 1 metoprolol succinate 100 mg tablet extended release 24 hr 100 mg PO DAILY Qty: 0 RF: 0 furosemide 20 mg tablet 20 mg PO DAILY RF: 0 Xarelto 15 mg Tablet 15 mg PO DAILY RF: 0 diltiazem HCl 120 mg capsule,extended release 24hr 240 mg PO QAM RF: 0 atorvastatin 20 mg Tablet 20 mg PO DAILY RF: 0 insulin aspart U-100 [Novolog PenFill U-100 Insulin] 100 UNIT/ML cartridge 12 units Sub-Q BID RF: 0 calcium carbonate-vitamin D3 [Calcium 600 + D(3)] 600 mg(1,500mg) -200 unit Tablet 1 tab PO BID Qty: 60 RF: 0 calcitonin (salmon) 200 unit/actuation [place],Non-Aerosol 0 ml NS DAILY Qty: 30 RF: 0 lidocaine [Lidoderm] 5 % Adhesive Patch,Medicated 2 patch topical DAILY Qty: 60 RF: 0 ferrous sulfate 325 mg (65 mg iron) tablet,delayed release (DR/EC) 325 mg PO BID Qty: 60 RF: 0 Medical Decision Making 71 yo female with multiple medical problems and has an indwelling suprapubic catheter in place due to urinary retention and unable to self cath, comes in with ems with altered mental status for unknown length of time. Apparently PD was called as neighbors noted she was yelling out her [place], when pd arrived they noted she was not oriented so called ems who brought her here and noted a finger stick glucose of 500. She had a urology visit at the beginning of June and apparently gets monthly catheter changes and doesn't appear she's had her appointment yet this month. Her catheter was noted to be capped off and not draining and she is unable to answer when she last drained the catheter and there is sediment in the catheter. Nursing flushed easily and after a bag was placed urine did drain. She arrives oriented only to place, when I ask her name she says she's not here and when I ask the month or year she says I need to pee. She is moving all her extremities equally, and can say that she feels me touching all her extremities. She is quite agitated in the bed constantly moving around. I suspect her source of the altered mental status is a urinary tract infection, will evaluate as well for electrolyte abnormalities. She has no signs of head trauma, perrl, doubt ich but given unclear story will obtain ct head to evaluate for this and also ct renal colic to evaluate for possible infected kidney stone. pt would not hold still for CT so was given Iv ativan to assist with this pt stable after CT, labs show glucose over 800 with reassuring Vbg, K of 6.0, Na of 122, mild [place] with creatinine of 1.6 and urine with evidence of uti, no leukocytosis and reassuring procalcitonin. CT head unremarkable, CT renal colic shows right sided obstructing calculus in the right ureter, bilateral hydronephrosis with bladder distention. She did have over 2400 drained from the catheter after CT per nursing so it is draining. IV insulin initated for likely HHS, and will consult with urology about if this kidney stone needs emergent transfer for intervention spoke with Dr. [place] [facility] [place] urologist who reviewed case and did not feel she required emergent transfer given no evidence of sepsis at this time and needs treatment of her other medical issues (hyponatremia, hhs), if worsening or no improvement with treatment of other causes would consider possible urostomy tube. Discussed with Dr. Torres who accepts for admission Differential Diagnosis Differential Diagnosis: uti, electrolyte abnormality, sdh Medical Records Medical records reviewed: Yes I reviewed the patient's medical records. Imaging Data Radiologic Study: Attestation: I personally reviewed and interpreted this imaging study as follows: Imaging: CT Scan Radiologist's impression: IMPRESSION: No acute intracranial abnormality on head ct Radiologic Study #2: Attestation: I personally reviewed and interpreted this imaging study as follows: Imaging: CT Scan Radiologist's impression: IMPRESSION: 1. Motion limited study. 2. Obstructing calculus in distal right ureter. 3. Bilateral hydronephrosis and hydroureter, worse on the left, at least in part due to bladder distension on the left and to obstructing calculus on the right. 4. Distended urinary bladder. Correlate clinically for proper functioning of the catheter or if it was clamped at the time of imaging. 5. Perinephric stranding of fat which could have several possible etiologies including scarring, third spacing of fluid, inflammatory process/infection and obstructive uropathy Lab Data Lab results reviewed: Yes I reviewed the patient's lab results. ECG Data Attestation: I personally reviewed and interpreted this ECG (s) as follows: Prior ECG tracings: available for review Interpretation: afib, rate of 108, no acute st t wave ischemic findings HPI General Mode of arrival: EMS . Date/Time Provider Initiated Documentation: 07/30/21 23:35 . Limitations to Documentation: altered mental status . Information obtained by: EMS . History of Present Illness 71 year old F presents to the emergency department with the chief complaint of altered mental status, described as moderate, Patient started experiencing this unknown and it has been constant. No relieving factors improve symptom(s), No exacerbating factors reported . Patient notes confusion; denies shortness of breath. Patient did receive the following treatments prior to arrival, none Related Data Home Medications Medication Instructions Recorded Confirmed omeprazole 20 mg PO DAILY 09/22/12 07/31/21 metformin [Glucophage] 1 tab PO BID 11/24/16 06/26/21 magnesium oxide [MagOx] 400 mg PO DAILY #30 tab 05/19/17 06/26/21 atorvastatin 20 mg PO DAILY 05/16/18 06/26/21 insulin aspart U-100 [Novolog 12 units SUB-Q BID 05/16/18 06/26/21 PenFill U-100 Insulin] lisinopril 10 mg PO DAILY 05/12/19 07/31/21 calcitonin (salmon) 0 ml NS DAILY #30 ml 07/19/19 06/26/21 calcium carbonate-vitamin D3 1 tab PO BID #60 tab 07/19/19 06/26/21 [Calcium 600 + D(3)] lidocaine [Lidoderm] 2 patch TOPICAL DAILY #60 ea 07/19/19 06/26/21 ferrous sulfate 325 mg PO BID #60 tab 07/09/20 06/26/21 diaper,brief,adult,disposable #100 ea 10/31/20 06/26/21 nystatin 100,000 unit/gram topical 1 applic TOPICAL BID PRN #60 gm 10/31/20 07/31/21 powder aspirin 81 mg PO DAILY 11/25/20 06/26/21 Lantus Solostar U-100 Insulin 20 unit SUBCUT HS #15 ml 11/27/20 06/26/21 metoprolol succinate 100 mg PO DAILY #0 tab 11/27/20 07/31/21 Chair liners (CHUX) 1 ea MISCELLANEOUS BID PRN #60 ea 12/06/20 06/26/21 diclofenac sodium 1 % topical gel 4 g TOPICAL QID #100 g 01/14/21 06/26/21 diltiazem HCl 240 mg PO QAM 07/31/21 07/31/21 furosemide 20 mg PO DAILY 07/31/21 07/31/21 rivaroxaban [Xarelto] 15 mg PO DAILY 07/31/21 07/31/21 Previous Rx's Medication Instructions Recorded magnesium oxide [MagOx] 400 mg PO DAILY #30 tab 05/19/17 calcitonin (salmon) 0 ml NS DAILY #30 ml 07/19/19 calcium carbonate-vitamin D3 1 tab PO BID #60 tab 07/19/19 [Calcium 600 + D(3)] lidocaine [Lidoderm] 2 patch TOPICAL DAILY #60 ea 07/19/19 ferrous sulfate 325 mg PO BID #60 tab 07/09/20 diaper,brief,adult,disposable #100 ea 10/31/20 nystatin 100,000 unit/gram topical 1 applic TOPICAL BID PRN #60 gm 10/31/20 powder Lantus Solostar U-100 Insulin 20 unit SUBCUT HS #15 ml 11/27/20 metoprolol succinate 100 mg PO DAILY #0 tab 11/27/20 Chair liners (CHUX) 1 ea MISCELLANEOUS BID PRN #60 ea 12/06/20 diclofenac sodium 1 % topical gel 4 g TOPICAL QID #100 g 01/14/21 Allergies Allergy/AdvReac Type Severity Reaction Status Date / Time trazodone AdvReac Intermediate NIGHTMARES Verified 06/13/21 00:49 General Stated Complaint: Diabetes ARGENIS: 3 Review of Systems Unobtainable due to mental status PFS All Active Problems (Updated 07/31/21 @ 01:18 by Guillermo Ford MD) Hyperglycemia (Acute) Urinary tract infection (Acute) Altered mental status (Acute) Trochanteric bursitis, right hip (Acute) Right ankle sprain (Acute) Hip pain, right (Acute) GI bleed (Acute) Fracture, lumbar vertebra, compression (Acute) Multiple rib fractures involving four or more ribs (Acute) Hypomagnesemia (Acute) PSVT (paroxysmal supraventricular tachycardia) (Acute) Urinary retention (Acute 03/31/16) Poorly controlled diabetes mellitus (Chronic) Transient neurologic deficit (Acute) Fungal dermatitis (Acute) Atrial flutter (Acute) Vaginal bleeding, abnormal (Acute) Atrial fibrillation and flutter (Chronic) Poorly controlled type 2 diabetes mellitus (Acute) Hypomagnesemia (Acute) Diabetes mellitus type 2 in obese (Acute) Fracture of femoral neck, right (Acute) Retention, urine (Acute) Hyperkalemia (Acute) Medical History Atrial fibrillation Cataracts, bilateral CHF (congestive heart failure) Diabetes Hyperlipidemia Hypertension S/P right hip fracture TIA (transient ischemic attack) Surgical History History of suprapubic catheter Status post right hip replacement Family History Other Diabetes Heart disease Hyperlipidemia Hypertension Stroke Social History Smoking/Tobacco Use Status: Former Tobacco Use Smoking risk assessment performed?: Yes Alcohol Intake: never Drug use: Never Substance use type: does not use Household members: none Do you feel safe at home: Yes Do you feel safe in your relationship?: Yes Additional Social history: Lives alone[address] Does not drive. Exam Const General: no acute distress Orientation: alert HENMT Head: normal to inspection Ears: external ears normal General nose exam: external nose normal Mouth: moist mucous membranes Eyes General: appearance normal, both eyes and all related structures Neck Neck: normal visual inspection Resp Effort & Inspection: normal respiratory effort Cardio Rate: regular rate Skin General skin exam: turgor normal Neuro General: patient alert Extrem General: normal to inspection Psych Mental Status: mental status grossly normal Course Vital Signs Vital signs: Vital Signs Temperature 36.6 C 07/30/21 23:15 Pulse 105 H 07/30/21 23:15 Respiratory Rate 20 07/30/21 23:15 Blood Pressure 193/112 H 07/30/21 23:15 Pulse Oximetry 95 07/30/21 23:15 Temperature 36.6 C 07/30/21 23:15 Temperature Source Temporal Artery Scan 07/30/21 23:15 Pulse 105 H 07/30/21 23:15 Respiratory Rate 20 07/30/21 23:15 Respiratory Effort 07/30/21 23:27 Blood Pressure 193/112 H 07/30/21 23:15 Blood Pressure Position Supine 07/30/21 23:15 Pulse Oximetry 95 07/30/21 23:15 Oxygen Delivery Method Room Air 07/30/21 23:15 Oxygen Flow Rate 0 07/30/21 23:15 Pain Level 3 07/30/21 23:15 Critical Care Time Critical Care Time Critical Care Time: Yes Total Critical Care Time: 60 (minutes) Attestation: time spent initiating insulin infusion for patient with hyperglycemic and likely hyperosmolar state and requiring frequent reassessments and hemodynamic monitoring with potential to deteriorate at any time
[2021-07-30 23:41] LABS: Abs Immature Grans 0.02 10^3/uL (0.0-0.06); Absolute Basophil Count 0.04 10^3/uL (0.0-0.2); Absolute Eosinophil Count 0.11 10^3/uL (0.0-0.7); Absolute Lymphocyte Count 1.73 10^3/uL (1.2-3.4); Absolute Neutrophil Count 4.92 10^3/uL (1.2-6.7); Basophils % 0.5; Bilirubin Negative (Negative); Blood Small (Negative); Clarity Cloudy (Clear); Eosinophils % 1.4; Glucose 500 mg/dL (Negative); HCT 38.8 % (36.0-46.0); HGB 11.7 g/dL (11.2-15.7); Immature Grans % 0.3; Ketones Negative (Negative); Leukocyte Esterase Trace (Negative); Lymphocytes % 22.7; MCH 27.7 pg (27.0-33.0); MCHC 30.2 % (32.0-36.0); MCV 91.7 fL (80-95); Monocytes % 10.5; Neutrophils % 64.6; Nitrite Negative (Negative); Nucleated RBC 0 %; Platelet Count 345 10^3/uL (130-400); RBC 4.23 10^6/uL (3.93-5.22); RDW 13.5 % (11.7-14.6); RDW-SD 45.6 fL; Urobilinogen 0.2 EU/dL (Up TO 0.2); WBC 7.62 10^3/uL (4.4-10.8); pH 6.5 (5-8)
[2021-07-30] MEDS: Normal Saline 1,000 ML 1000 ML IV (23:44)
--- NOTE | 2021-07-30 23:45 | DI.CT_ITS ---
Exam(s) CT HEAD WO EXAM: CT HEAD WO CLINICAL HISTORY: ams. TECHNIQUE: Imaging Protocol: Axial computed tomography images with coronal and sagittal reformatted images were created and reviewed COMPARISON: CT CT HEAD FACIAL WO from 06/13/2021 FINDINGS: There are no skull fractures nor fluid in the visualized paranasal sinuses. There is no evidence of intracranial hemorrhage, mass effect, or shift of midline structures. There are no extra-axial fluid collections. The ventricles are not enlarged or shifted and there is no blo od within the ventricular system nor within the basal cisterns. Mild periventricular hypo density consistent with chronic small vessel disease. Mild asymmetry in th e size of lateral ventricles, unchanged from the prior study. Vascular calcification is noted in both vertebral arteries at the skull base. IMPRESSION: No acute intracranial findings on this noninfused CT scan of the brain. RADIATION DOSE DELIVERED: 1,545.81mGy.cm Total DLP DATA REPOSITORY: All CT scans at this facility are submitted to the National Radiology Data Registry (NRDR) Dose Index Registry (DIR) with the [employer] [place] [employer] ([employer]). RADIATION OPTIMIZATION: All CT scans at this facility use at least one of these dose optimization te chniques: automated exposure control; mA and/or kV adjustment per patient size (includes targeted exa ms where dose is matched to clinical indication); or iterative reconstruction.
--- NOTE | 2021-07-30 23:45 | DI.CT_ITS ---
Exam(s) CT RENAL COLIC WO EXAM: CT RENAL COLIC WO CLINICAL HISTORY: ?infected kidney stone. TECHNIQUE: Imaging Protocol: Axial computed tomography images with coronal and sagittal reformatted images were created and reviewed CONTRAST MATERIAL: Intravenous: none Oral: None COMPARISON: CT CT ABDOMEN PELVIS WO from 07/08/2020 FINDINGS: Motion artifact limits interpretation VISUALIZED LUNG BASES: No nodules nor pleural effusions evident. ABDOMEN: There is no ascites. LIVER: There are no obvious focal hepatic lesions evident of this noninfused study. GALLBLADDER/BILIARY: No obvious gallbladder pathology. CBD is not dilated. PANCREAS: No evidence of pancreatic mass nor dilatation of the pancreatic duct. SPLEEN: Spleen is not enlarged. No obvious intrasplenic lesions. ADRENALS: There are no significant adrenal masses. KIDNEYS:There is a 2.5 cm diameter cyst in the right kidney again noted. There are no solid renal ma sses. No intrarenal calculi. Bilateral hydronephrosis and hydroureter noted. This may in part be r elated to the fact that the urinary bladder is quite distended in this patient who has a suprapubic c atheter. This suprapubic catheter appears to be in satisfactory position in the urinary bladder but may be clamped, this responsible for the distension.. On the right side there is a 4 millimeter calc ulus in the lower right ureter just above the ureterovesical junction. There are no calculi seen in the somewhat dilated left ureter.. ABDOMINAL AORTA: Abdominal aorta is not enlarged. LYMPH NODES: There is no retroperitoneal nor paraaortic adenopathy. ABDOMINAL WALL: No evidence of significant anterior abdominal wall nor inguinal hernia. GI: There is no evidence of bowel obstruction, free air, nor abscess. PELVIS: LYMPH NODES: There is no intrapelvic nor inguinal adenopathy. GI: No evidence of appendicitis.No evidence of sigmoid diverticulitis. URINARY BLADDER: Distended. Suprapubic catheter is probably occluded or clamped REPRODUCTIVE: Age-appropriate OSSEOUS: No significant osseous lesions. L1 a compression fracture again noted. Also mild degenerat davi anterolisthesis of L4 upon L5 with approximately 4-5 millimeters slippage again noted at this lev el. No pars defects Right hip prosthesis noted. IMPRESSION: 1. Bilateral hydronephrosis and bilateral hydroureter which is most probably related to the urinary b ladder which distended, possibly due to obstruction or clamping of the well position suprapubic bridgette ter. 2. There appears to be a 4 millimeter calculus in the lower right ureter a few cm above the UVJ. Giv en the amount of motion here is difficult to determine if this is a calculus within the lower right u reter or and intimately associated phlebolith immediately adjacent to the right ureter.. 3. Benign 2.5 cm cyst is again noted in the right kidney. There are no solid renal masses. RADIATION DOSE DELIVERED: 1,232.99mGy.cm Total DLP DATA REPOSITORY: All CT scans at this facility are submitted to the National Radiology Data Registry (NRDR) Dose Index Registry (DIR) with the [employer] ([employer]). RADIATION OPTIMIZATION: All CT scans at this facility use at least one of these dose optimization te chniques: automated exposure control; mA and/or kV adjustment per patient size (includes targeted exa ms where dose is matched to clinical indication); or iterative reconstruction.
[2021-07-30 23:48] LABS: BE (Venous) 1 mmol/L (-2-3); Bacteria Packed HPF (Negative); C & S Indicated? Yes; Crystals Negative HPF (Negative); Epithelial Cells Negative HPF (Negative); HCO3 (Venous) 26 mmol/L (23-28); Mucus Negative (Negative); O2 Sat (Venous) 62 %; TCO2 (Venous) 25 mmol/L (24-29); WBC >50 HPF (0-5); pCO2 (Venous) 49 mmHg (41-51); pH (Venous) 7.34 (7.31-7.41); pO2 (Venous) 34 mmHg
[2021-07-30 23:50] LABS: Lactate 1.7 mmol/L (0.6-1.4)
[2021-07-30 23:59] LABS: INR 1.1 (0.9-1.1); PTT Activated 26.5 sec (21.0-27.5); Prothrombin Time 11.2 sec (9.3-11.0)
[2021-07-31] VITALS (75 sets, daily range): BP systolic 89–173; BP diastolic 41–138; PULSE 74–147; RESP 9–23; TEMP 36.6–37.7; O2SAT 89–100
[2021-07-31 00:17] LABS: Procalcitonin 0.1 ng/mL
[2021-07-31] MEDS: LORazepam 2 MG/ML VIAL 1 MG IVP (00:20)
[2021-07-31 00:28] LABS: ALT 17 U/L (14-59); AST 11 U/L (15-37); Albumin 3.5 g/dL (3.4-5.0); Alkaline Phosphatase 70 U/L (46-116); Anion Gap 9.7 mmol/L (3-11); BUN 36 mg/dL (7-18); Bilirubin, Total 0.3 mg/dL (0.2-1.0); CO2 25.3 mmol/L (21.0-32.0); CREATININE 1.6 mg/dL (0.55-1.02); Chloride 87 mmol/L (98-107); Magnesium 1.5 mg/dL (1.8-2.4); TSH (W/Ref FT4) 0.84 uIU/mL (0.36-3.74); Total Protein 8.3 g/dL (6.4-8.2)
[2021-07-31 00:30] LABS: Sodium 122 mmol/L (136-145)
[2021-07-31] MEDS: cefTRIAXone 2 GM/50 ML BAG IVPB (00:40)
--- NOTE | 2021-07-31 00:41 | DI.VRAD_ITS ---
PROCEDURE INFORMATION: Exam: CT Head Without Contrast Exam date and time: 07/30/2021 11:48 PM Age: 71 years old Clinical indication: Altered mental status/memory loss; Confusion or disorientation; Patient HX: AMS TECHNIQUE: Imaging protocol: Computed tomography of the head without contrast. Radiation optimization: All CT scans at this facility use at least one of these dose optimization techniques: automated exposure control; mA and/or kV adjustment per patient size (includes targeted exams where dose is matched to clinical indication); or iterative reconstruction. COMPARISON: CT HEAD FACIAL WO 06/13/2021 1:03 AM FINDINGS: Mildly limited due to motion artifact Brain: Mild volume loss No hemorrhage. Mild white matter disease. No mass effect. Cerebral ventricles: Mild asymmetry in the left lateral ventricle, grossly stable Paranasal sinuses: Visualized sinuses are unremarkable. No fluid levels. Mastoid air cells: Visualized mastoid air cells are well aerated. Bones/joints: Unremarkable. No acute fracture. Soft tissues: Unremarkable. IMPRESSION: No acute intracranial abnormality. Dictated and Authenticated by: Palmer Jaquez MD. Ordering:CHANDAN Li MD
[2021-07-31 00:47] LABS: Glucose 882 mg/dL (74-106)
[2021-07-31] MEDS: MAGNESIUM SULFATE 1 GM/100 ML BAG IVPB (00:52)
--- NOTE | 2021-07-31 01:01 | DI.VRAD_ITS ---
PROCEDURE INFORMATION: Exam: CT Abdomen And Pelvis Without Contrast Exam date and time: 07/30/2021 11:48 PM Age: 71 years old Clinical indication: Other: AMS; Prior surgery; Surgery date: 6+ months; Surgery type: Hip replacement and suprapubic cath; Patient HX: ? Infected kidney stone TECHNIQUE: Imaging protocol: Computed tomography of the abdomen and pelvis without contrast. Radiation optimization: All CT scans at this facility use at least one of these dose optimization techniques: automated exposure control; mA and/or kV adjustment per patient size (includes targeted exams where dose is matched to clinical indication); or iterative reconstruction. Other technique: Study is limited due to motion degradation of multiple images. COMPARISON: CT ABDOMEN PELVIS WO 07/08/2020 9:04 PM FINDINGS: Tubes, catheters and devices: Suprapubic catheter with balloon tip in bladder lumen. Liver: Normal. No mass. Gallbladder and bile ducts: Normal. No calcified stones. No ductal dilation. Pancreas: Normal. No ductal dilation. Spleen: Normal. No splenomegaly. Adrenal glands: Normal. No mass. Kidneys and ureters: 4 mm radiopaque calculus in distal right ureter, 2/124. No radiopaque renal or left ureteric calculi. Mild to moderate left hydroureter and hydronephrosis. Mild right hydronephrosis and hydroureter. 3 cm simple cyst in right kidney. There is bilateral perinephric stranding which is nonspecific. Stomach and bowel: Unremarkable. No obstruction. No mucosal thickening. Appendix: Normal appendix. Intraperitoneal space: Unremarkable. No free air. No significant fluid collection. Vasculature: Unremarkable. No abdominal aortic aneurysm. Lymph nodes: Unremarkable. No enlarged lymph nodes. Urinary bladder: Urinary bladder distended without wall thickening. Reproductive: Unremarkable as visualized. Bones/joints: Status post total right hip replacement. Chronic L1 vertebral body compression fracture. 5 mm anterior subluxation of L4 on L5 is unchanged.The spine demonstrates mild degenerative changes at multiple levels. Soft tissues: Unremarkable. IMPRESSION: 1. Motion limited study. 2. Obstructing calculus in distal right ureter. 3. Bilateral hydronephrosis and hydroureter, worse on the left, at least in part due to bladder distension on the left and to obstructing calculus on the right. 4. Distended urinary bladder. Correlate clinically for proper functioning of the catheter or if it was clamped at the time of imaging. 5. Perinephric stranding of fat which could have several possible etiologies including scarring, third spacing of fluid, inflammatory process/infection and obstructive uropathy. Dictated and Authenticated by: Jose Manuel Michele MD. Ordering:CHANDAN Li MD
[2021-07-31 01:07] LABS: Source Nasal/Nares
[2021-07-31] MEDS: INSULIN REGULAR IN 0.9 % NACL 100 UNIT/100 ML BAG 9 UNIT IV ×2 (01:08→02:46)
[2021-07-31 01:47] LABS: COVID-19 PCR Negative (Negative)
--- NOTE | 2021-07-31 02:05 | HPE_ITS ---
Date of service: 07/31/21 Time of Service: 02:06 Assessment and Plan Assessment and plan (1) HHNC (hyperglycemic hyperosmolar nonketotic coma): Status: Acute Assessment and plan: Admit to the ICU with insulin gtt, IVF, serial glucose and chemistry checks. Check A1C. Consult DM educator. Will clarify which medications the patient takes through the PCP - it is not clear if she is still on long acting insulin. (2) Toxic metabolic encephalopathy: Status: Acute Assessment and plan: In setting of HHNK, obstructive uropathy, possible UTI. Monitor mental status as all of the above are getting treated. I do not suspect an acute CVA at this time. (3) Obstructive uropathy: Status: Acute Assessment and plan: in setting of a clamped suprapubic catheter. There does seem to also be a 4 mm stone causing ureteral obstruction on the R. [place] [facility] [place] that the patient did not require immediate intervention since there were no clear signs of infection/sepsis. Will consult urology. Continue empiric ceftriaxone. Urology consulted for a suprapubic catheter exchange given presence of leucocyte esterase. (4) Pyuria: Status: Acute Assessment and plan: Trace leucocyte esterase in the UA collected from suprapubic catheter which was clamped for an unknown amount of time. No clear UTI. As above - urology consulted for suprapubic catheter exchange. Continue empiric ceftriaxone. (5) Atrial fibrillation: Assessment and plan: Rates slightly rapid. Continue home diltiazem and metoprolol. Will give a dose of metoprolol IV now and write for prn IV metoprolol. Continue home xarelto. Qualifiers: Atrial fibrillation type: persistent (not longstanding) Qualified Code(s): I48.19 - Other persistent atrial fibrillation (6) Wound of right lower extremity: Status: Acute Assessment and plan: Consult wound care. (7) Sacral decubitus ulcer, stage II: Status: Acute Assessment and plan: Consult wound care (8) Poorly controlled type 2 diabetes mellitus: Status: Chronic Assessment and plan: Check a1c. Consult DM educator. (9) Hyponatremia: Status: Acute Assessment and plan: Component of pseudohyponatremia. Should improve with correction of glucose. (10) Hypomagnesemia: Status: Acute Assessment and plan: Replete. Recheck in am (11) Hyperkalemia: Status: Resolved Assessment and plan: Resolved with IV hydration. Repeat potassium is 5.0. May require repletion as we continue to treat hyperglycemia. (12) DVT prophylaxis: Status: Acute Assessment and plan: Continue home xarelto (13) Discharge planning issues: Status: Acute Assessment and plan: Full code Admit to ICU. Consult palliative care. Consult physical therapy. Total Critical Care Time 60 minutes. 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 ED by ambulance after neighbors requested a well check on the patient, having heard her yelling out of her window. Per EMS, the patient was confused and had a BG of 500. On arrival to the ED, she was unable to provide any history, but moved all 4 extremities. Her blood sugar was actually 882. Her suprapubic catheter had been clamped - unclear for how long - and, when unclamped, drained [address] head w/o contrast was negative. CT abdomen/pelvis revealed a possible 4 mm obstructing calculus in the distal right ureter, bilateral hydronephrosis and hydroureters, worse on the left, due to bladder distention and the obstructing calculus on the R, and nonspecific perinephric stranding. The patient's case was discussed with [facility] [place] who felt that, since the patient does not have evidence of sepsis, given her overall medical picture, she would need to have those concerns addressed first. If she deteriorates, a nephrostomy tube could be considered, but it was not felt to be emergently necessary. As far as sepsis, she does not have a fever, a white count, and her UA is positive for trace leucocyte esterase - collected on the urine from the home suprapubic catheter. She was empirically treated for a UTI. She was initiated on IVF and insulin infusion. She is in rapid Afib, and her HR has improved from 140s to 110s just with above interventions. Hospitalist admission to the ICU was requested. At the time of my exam, the patient is asleep, arousable briefly, but immediately falls back asleep. She did not provide any history. Review of Systems All systems reviewed & are unremarkable except as noted in HPI and below PFSH All Active Problems (Updated 07/31/21 @ 03:18 by Amarilis May MD) Sacral decubitus ulcer, stage II (Acute) Wound of right lower extremity (Acute) Hyponatremia (Acute) Discharge planning issues (Acute) DVT prophylaxis (Acute) Pyuria (Acute) Obstructive uropathy (Acute) Toxic metabolic encephalopathy (Acute) HHNC (hyperglycemic hyperosmolar nonketotic coma) (Acute) Hyperglycemia (Acute) Urinary tract infection (Acute) Altered mental status (Acute) Trochanteric bursitis, right hip (Acute) Right ankle sprain (Acute) Hip pain, right (Acute) GI bleed (Acute) Fracture, lumbar vertebra, compression (Acute) Multiple rib fractures involving four or more ribs (Acute) Hypomagnesemia (Acute) PSVT (paroxysmal supraventricular tachycardia) (Acute) Urinary retention (Acute 03/31/16) Poorly controlled diabetes mellitus (Chronic) Transient neurologic deficit (Acute) Fungal dermatitis (Acute) Atrial flutter (Acute) Vaginal bleeding, abnormal (Acute) Atrial fibrillation and flutter (Chronic) Poorly controlled type 2 diabetes mellitus (Chronic) Hypomagnesemia (Acute) Diabetes mellitus type 2 in obese (Acute) Fracture of femoral neck, right (Acute) Retention, urine (Acute) Medical History (Updated 07/31/21 @ 03:18 by Amarilis May MD) Atrial fibrillation Cataracts, bilateral CHF (congestive heart failure) LVEF 50-55%, diastolic dysfunction Diabetes Hyperlipidemia Hypertension Pulmonary hypertension S/P right hip fracture TIA (transient ischemic attack) Surgical History History of suprapubic catheter Status post right hip replacement Family History Other Diabetes Heart disease Hyperlipidemia Hypertension Stroke Social History Smoking/Tobacco Use Status: Former Tobacco Use Smoking risk assessment performed?: Yes Alcohol Intake: never Drug use: Never Substance use type: does not use Household members: none Do you feel safe at home: Yes Do you feel safe in your relationship?: Yes Additional Social history: Lives alone. [address] Does not drive. Meds Allergies and Home Medications Allergies Allergy/AdvReac Type Severity Reaction Status Date / Time trazodone AdvReac Intermediate NIGHTMARES Verified 06/13/21 00:49 Home Medications Medication Instructions Recorded Confirmed Type omeprazole 20 mg PO DAILY 09/22/12 07/31/21 History metformin [Glucophage] 1 tab PO BID 11/24/16 06/26/21 History magnesium oxide [MagOx] 400 mg PO DAILY #30 tab 05/19/17 06/26/21 Rx atorvastatin 20 mg PO DAILY 05/16/18 06/26/21 History insulin aspart U-100 [Novolog 12 units SUB-Q BID 05/16/18 06/26/21 History PenFill U-100 Insulin] lisinopril 10 mg PO DAILY 05/12/19 07/31/21 History calcitonin (salmon) 0 ml NS DAILY #30 ml 07/19/19 06/26/21 Rx calcium carbonate-vitamin D3 1 tab PO BID #60 tab 07/19/19 06/26/21 Rx [Calcium 600 + D(3)] lidocaine [Lidoderm] 2 patch TOPICAL DAILY #60 ea 07/19/19 06/26/21 Rx ferrous sulfate 325 mg PO BID #60 tab 07/09/20 06/26/21 Rx diaper,brief,adult,disposable #100 ea 10/31/20 06/26/21 Rx nystatin 100,000 unit/gram topical 1 applic TOPICAL BID PRN #60 gm 10/31/20 07/31/21 Rx powder aspirin 81 mg PO DAILY 11/25/20 06/26/21 History Lantus Solostar U-100 Insulin 20 unit SUBCUT HS #15 ml 11/27/20 06/26/21 Rx metoprolol succinate 100 mg PO DAILY #0 tab 11/27/20 07/31/21 Rx Chair liners (CHUX) 1 ea MISCELLANEOUS BID PRN #60 ea 12/06/20 06/26/21 Rx diclofenac sodium 1 % topical gel 4 g TOPICAL QID #100 g 01/14/21 06/26/21 Rx diltiazem HCl 240 mg PO QAM 07/31/21 07/31/21 History furosemide 20 mg PO DAILY 07/31/21 07/31/21 History rivaroxaban [Xarelto] 15 mg PO DAILY 07/31/21 07/31/21 History Exam Narrative Exam Narrative: General: Elderly female who is asleep when I came to examine her, wakes up to tactile stimulation, opens her eyes and moves all 4 extremities, briefly follows commands before falling back asleep; does not verbalize at all during my visit with her Neurological: Somnolent, arousable, no obvious focal deficits; unable to assess speech Psychiatric: Difficult to assess given mental status Skin: dry; facial skin with evidence of mild seborrheic dermatitis, sacral decubitous wound - looks like it is old and already healing stage 2; erythema in the sacram/buttocks, R tibial surface has a wound with dry scab and dry brown secretions and mild erythema of surrounding skin. There is another small open area medially on RLE. HEENT: Atraumatic, normocephalic, EOMI, dry MM, unable to examine oropharynx as the patient did not open her mouth, no submandibular or cervical lymphadenopathy, no goiter or JVD Cardiovascular: irregularly irregular rhythm, mildly tachycardic, no m/r/g Lungs: CTAB Gastrointestinal: soft, nontender, nondistended Genitourinary: suprapubic catheter in place Extremities: trace edema BLE's, see skin exam RLE; both feet with dry skin, no leions, 1+ pedal pulses B, broken toe nails Results Imaging Additional studies: CT abdomen/pelvis w/o contrast: 1. Motion limited study. 2. Obstructing calculus in distal right ureter. 3. Bilateral hydronephrosis and hydroureter, worse on the left, at least in part due to bladder distension on the left and to obstructing calculus on the right. 4. Distended urinary bladder. Correlate clinically for proper functioning of the catheter or if it was clamped at the time of imaging. 5. Perinephric stranding of fat which could have several possible etiologies including scarring, third spacing of fluid, inflammatory process/infection and obstructive uropathy. CT head: No acute intracranial abnormality. EKG: Afib, HR 108, no acute ischemia, T wave morphology is her baseline Labs Result diagrams: 07/30/21 23:34 07/30/21 23:34 Labs: Laboratory Results - last 24 hr 07/30/21 07/30/21 07/30/21 23:34 23:34 23:34 WBC 7.62 RBC 4.23 Hgb 11.7 Hct 38.8 MCV 91.7 MCH 27.7 MCHC 30.2 L RDW 13.5 Plt Count 345 MPV 11.0 Immature Gran % 0.3 Neutrophils % 64.6 Lymphocytes % 22.7 Monocytes % 10.5 Eosinophils % 1.4 Basophils % 0.5 Nucleated RBC % 0 Absolute Neutrophils 4.92 Absolute Lymphocytes 1.73 Absolute Monocytes 0.80 Absolute Eosinophils 0.11 Absolute Basophils 0.04 PT INR APTT VBG pH VBG pCO2 VBG pO2 VBG HCO3 VBG Total CO2 VBG O2 Saturation VBG Base Excess VBG Lactate 1.7 H Sodium 122 L* Potassium 6.0 H Chloride 87 L Carbon Dioxide 25.3 Anion Gap 9.7 BUN 36 H Creatinine 1.6 H Estimated GFR/1.73 m2 31.60 Glucose 882 H* Calcium 9.0 Magnesium 1.5 L Total Bilirubin 0.3 AST 11 L ALT 17 Alkaline Phosphatase 70 Total Protein 8.3 H Albumin 3.5 Procalcitonin 0.1 TSH 0.84 Urine Color Urine Clarity Urine pH Ur Specific [place] Urine Protein Urine Ketones Urine Blood Urine Nitrite Urine Bilirubin Urine Urobilinogen Ur Leukocyte Esterase Urine RBC Urine WBC Ur Epithelial Cells Urine Crystals Urine Bacteria Urine Mucus Ur Culture Indicated? Urine Glucose COVID-19 Source SARS-CoV-2 (PCR) 07/30/21 07/30/21 07/30/21 23:34 23:34 23:34 WBC RBC Hgb Hct MCV MCH MCHC RDW Plt Count MPV Immature Gran % Neutrophils % Lymphocytes % Monocytes % Eosinophils % Basophils % Nucleated RBC % Absolute Neutrophils Absolute Lymphocytes Absolute Monocytes Absolute Eosinophils Absolute Basophils PT 11.2 H INR 1.1 APTT 26.5 VBG pH 7.34 VBG pCO2 49 VBG pO2 34 VBG HCO3 26 VBG Total CO2 25 VBG O2 Saturation 62 VBG Base Excess 1 VBG Lactate Sodium Potassium Chloride Carbon Dioxide Anion Gap BUN Creatinine Estimated GFR/1.73 m2 Glucose Calcium Magnesium Total Bilirubin AST ALT Alkaline Phosphatase Total Protein Albumin Procalcitonin TSH Urine Color Straw Urine Clarity Cloudy Urine pH 6.5 Ur Specific [place] 1.010 Urine Protein Negative Urine Ketones Negative Urine Blood Small H Urine Nitrite Negative Urine Bilirubin Negative Urine Urobilinogen 0.2 Ur Leukocyte Esterase Trace H Urine RBC 3-5 H Urine WBC >50 H Ur Epithelial Cells Negative Urine Crystals Negative Urine Bacteria Packed Urine Mucus Negative Ur Culture Indicated? Yes Urine Glucose 500 H COVID-19 Source SARS-CoV-2 (PCR) 07/31/21 01:03 WBC RBC Hgb Hct MCV MCH MCHC RDW Plt Count MPV Immature Gran % Neutrophils % Lymphocytes % Monocytes % Eosinophils % Basophils % Nucleated RBC % Absolute Neutrophils Absolute Lymphocytes Absolute Monocytes Absolute Eosinophils Absolute Basophils PT INR APTT VBG pH VBG pCO2 VBG pO2 VBG HCO3 VBG Total CO2 VBG O2 Saturation VBG Base Excess VBG Lactate Sodium Potassium Chloride Carbon Dioxide Anion Gap BUN Creatinine Estimated GFR/1.73 m2 Glucose Calcium Magnesium Total Bilirubin AST ALT Alkaline Phosphatase Total Protein Albumin Procalcitonin TSH Urine Color Urine Clarity Urine pH Ur Specific [place] Urine Protein Urine Ketones Urine Blood Urine Nitrite Urine Bilirubin Urine Urobilinogen Ur Leukocyte Esterase Urine RBC Urine WBC Ur Epithelial Cells Urine Crystals Urine Bacteria Urine Mucus Ur Culture Indicated? Urine Glucose COVID-19 Source Nasal/Nares SARS-CoV-2 (PCR) Negative Last Vital Signs Temp 36.6 C 07/30/21 23:15 Pulse 105 H 07/30/21 23:15 Resp 20 07/30/21 23:15 BP 193/112 H 07/30/21 23:15 Pulse Ox 95 07/30/21 23:15
[2021-07-31 02:31] LABS: Lactate 2.8 mmol/L (0.6-1.4)
[2021-07-31 03:04] LABS: NT-proBNP 1990 pg/mL (<300); Troponin I < 50 ng/L (<or=60)
[2021-07-31 03:07] LABS: Glucose 712 mg/dL (74-106)
[2021-07-31 03:09] LABS: Anion Gap 11.8 mmol/L (3-11); BUN 33 mg/dL (7-18); CO2 23.2 mmol/L (21.0-32.0); CREATININE 1.5 mg/dL (0.55-1.02); Calcium 9.5 mg/dL (8.5-10.1); Chloride 91 mmol/L (98-107); Estimated GFR 34.04 (mL/min/1.73m2); Magnesium 1.9 mg/dL (1.8-2.4); PHOSPHORUS 3.4 mg/dL (2.6-4.7); Sodium 126 mmol/L (136-145)
[2021-07-31 03:10] LABS: Glucose 712 mg/dL (74-106)
[2021-07-31] MEDS: Metoprolol 5 MG/5 ML VIAL 2.5 MG IVP ×2 (03:23→09:13)
[2021-07-31] MEDS: MAGNESIUM SULFATE 2 GM/50 ML BAG IVPB (04:18)
[2021-07-31] MEDS: Lactated Ringers 1,000 ML 150 ML IV (04:18)
[2021-07-31 05:36] LABS: Abs Immature Grans 0.02 10^3/uL (0.0-0.06); Absolute Basophil Count 0.03 10^3/uL (0.0-0.2); Absolute Eosinophil Count 0.03 10^3/uL (0.0-0.7); Absolute Lymphocyte Count 1.18 10^3/uL (1.2-3.4); Absolute Monocyte Count 0.61 10^3/uL (0.1-0.8); Absolute Neutrophil Count 6.74 10^3/uL (1.2-6.7); Basophils % 0.3; Eosinophils % 0.3; HCT 38.2 % (36.0-46.0); Immature Grans % 0.2; Lymphocytes % 13.7; MCH 27.1 pg (27.0-33.0); MCHC 31.4 % (32.0-36.0); MCV 86.4 fL (80-95); MPV 10.9 fL (8.0-11.0); Monocytes % 7.1; Neutrophils % 78.4; Nucleated RBC 0 %; Platelet Count 352 10^3/uL (130-400); RBC 4.42 10^6/uL (3.93-5.22); RDW 12.8 % (11.7-14.6); RDW-SD 40.4 fL; WBC 8.61 10^3/uL (4.4-10.8)
[2021-07-31 06:02] LABS: Anion Gap 8.1 mmol/L (3-11); BUN 27 mg/dL (7-18); CO2 26.9 mmol/L (21.0-32.0); CREATININE 1.3 mg/dL (0.55-1.02); Calcium 9.3 mg/dL (8.5-10.1); Chloride 98 mmol/L (98-107); Estimated GFR 40.15 (mL/min/1.73m2); Magnesium 2.2 mg/dL (1.8-2.4); PHOSPHORUS 2.5 mg/dL (2.6-4.7); Potassium 4.6 mmol/L (3.5-5.1); Sodium 133 mmol/L (136-145)
[2021-07-31 06:04] LABS: Glucose 475 mg/dL (74-106)
[2021-07-31 06:05] LABS: Glucose 475 mg/dL (74-106); Hemoglobin A1C 13.4 % (<5.7)
--- NOTE | 2021-07-31 08:41 | PDOC.CMIN ---
- If Service Date Differs Date of service: 07/31/21 Time of Service: 08:41 Care Management Initial Assess REASON FOR HOSPITALIZATION:: Diabetes,Hyperglycemia PAST MEDICAL HISTORY/PAST SURGICAL HISTORY:: All Active Problems (Updated 07/31/21 @ 01:18 by Guillermo Ford MD). Hyperglycemia (Acute). Urinary tract infection (Acute). Altered mental status (Acute). Trochanteric bursitis, right hip (Acute). Right ankle sprain (Acute). Hip pain, right (Acute). GI bleed (Acute). Fracture, lumbar vertebra, compression (Acute). Multiple rib fractures involving four or more ribs (Acute). Hypomagnesemia (Acute). PSVT (paroxysmal supraventricular tachycardia) (Acute). Urinary retention (Acute 03/31/16). Poorly controlled diabetes mellitus (Chronic). Transient neurologic deficit (Acute). Fungal dermatitis (Acute). Atrial flutter (Acute). Vaginal bleeding, abnormal (Acute). Atrial fibrillation and flutter (Chronic). Poorly controlled type 2 diabetes mellitus (Acute). Hypomagnesemia (Acute). Diabetes mellitus type 2 in obese (Acute). Fracture of femoral neck, right (Acute). Retention, urine (Acute). Hyperkalemia (Acute). Medical History . Atrial fibrillation. Cataracts, bilateral. CHF (congestive heart failure). Diabetes. Hyperlipidemia. Hypertension. S/P right hip fracture. TIA (transient ischemic attack). Surgical History . History of suprapubic catheter. Status post right hip replacement PREVIOUS FUNCTIONAL STATUS/SOCIAL/FAMILY SUPPORTS:: Hope [facility] alone [facility]. She has a disease case manager rn, Zoey Noyola, through [place] [employer], who supports her in the community. She also has support from [facility] and [facility] and has [facility] moderate needs. She is independent at baseline, and uses a cane. CURRENT FUNCTIONAL STATUS:: Hope was lying in bed when CM met with her. She was pleasant and agreeable to conversation. Hope stated that she is feeling much better than when she arrived. She acknowledged that she had been pretty sick - sicker than I realized. Hope's niece had been living with her but moved out about 6 months ago. 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 She receives some Meals on Wheels and also does some of her own cooking. ADVANCE DIRECTIVES:: none on file Has patient been provided with info about the portal/API?: Yes Did the patient sign up for the portal?: No INSURANCE COVERAGE / FINANCIAL ISSUES:: AARP Medicare Replacement. Medicaid CURRENT HOME/COMMUNITY SERVICES/EQUIPMENT:: RCT, [employer], [employer], [employer] Moderate needs, COA, MOW, SASH. Case management with Zoey Noyola from [facility] PRIMARY CARE PHYSICIAN:: Dean Camilo POTENTIAL DISCHARGE NEEDS:: follow up with PCP and plan of care PATIENT/FAMILY EDUCATION NEEDS:: Review of discharge instructions, limitations, medications, follow up plan, Ask Me Three TRANSPORTATION:: via RCT coordinated by CM PLAN:: Anticipate Hope will return home when medically cleared with a resumption of community supports. She will be driven home via private vehicle RCT, coordinated by CM. She will follow up with her PCP and discharge plan of care. CM will continue to support Hope and her discharge needs.
[2021-07-31] MEDS: Insulin Glargine 300 UNITS/3 ML PEN 20 UNITS SC (09:13)
--- NOTE | 2021-07-31 09:14 | W.PULMCC ---
General Date of Service Date of service: 07/31/21 Time of Service: 08:00 Reason for Admission to ICU: HHS pyelonephritis AMS Assessment and Plan Assessment and plan (1) Sacral decubitus ulcer, stage II: Status: Acute (2) HHNC (hyperglycemic hyperosmolar nonketotic coma): Status: Acute (3) Altered mental status: Status: Acute (4) Obstructive uropathy: Status: Acute (5) Pyelonephritis: Status: Acute (6) Hypomagnesemia: Status: Acute (7) Poorly controlled diabetes mellitus: Status: Chronic (8) Nephrolithiasis: Status: Chronic Assessment and plan: This is a 71 yo female admitted to the ICU for HHS, confusion and pyelonephritis. She is still confused today, however per reports, possibly slightly improved from yesterday. Head CT was normal and it seems most likely the AMS is due to the HHS and possibly infection. There is bilateral perinephric stranding on CT, which is concerning for pyelonephritis. This is likely directly related to the obstructive nephropathy. She was placed on ceftriaxone, but given the kidney involvement and complicated urologic history, I would recommend broadening antibiotic to Zosyn. Her HHS is significantly improved with insulin. She had yet to be placed on a dextrose infusion and had not been given long acting insulin. I would recommend long acting insulin for her, weight based dosing would be for 20U Lantus daily. Additionally her glucose is improved and so D51/2NS can be started in conjunction with the insulin gtt. As soon as she is able to eat, she should do so. Hopefully she can eat today with plans to then discontinue the insulin gtt and D51/2NS at that time. I am hopeful that her mental status clears. I would recommend contacting next of kin to assess what her baseline is. If she remains altered from baseline then I would recommend an LP for further investigation into this. She also has a small 4mm kidney stone that is non-obstructive, does not need intervention currently. Recommendations Pulmonary: No acute concerns Cardiac: A. fib with RVR - likely in response to acute medical issues ongoing - agree continuing metoprolol, diltiazem and Xarelto Renal: Obstructive uropathy - suprapubic catheter remains unclamped now - agree with urology consultation - hold nephrotoxic home meds Nephrolithiasis - non obstructing, no acute intervention required Hypomagnesemia - replete to 2.0 I&O: Intake & Output 07/28/21 07/29/21 07/30/21 07/31/21 23:59 23:59 23:59 23:59 Intake Total 1233.834 / 1233.834 Output Total 4275 / 4275 Balance -3041.166 / -3041.166 Weight 92 kg 83 kg Daily Fluid Goal:: Will be positive today GI Nutrition: Encourage PO diet Infectious Disease: Pyelonephritis - recommend broadening ceftriaxone to Zosyn for now - should resolve now that obstruction is resolved Hematologic: No acute concerns Neurologic: AMS - likely metabolic encephalopathy, negative head CT - if mental status does not improve over course of the day and remains different than her baseline then I would recommend an LP to rule out infectious etiology Endocrine: HHS - remains on insulin gtt - GAP closed - recommend weight based Lantus subq - 20U - recommend starting D51/2 NS - will D/C LR - recommend PO intake as soon as able - if eating can discontinue both D51/2NS and insulin gtt - once off insulin gtt start ac/hs fingersticks with sliding scale Lines: PIV Prophylaxis: on Xarelto on home omeprazole Code Status: Resuscitation Status Full Code Subjective Critical and life-threatening events over the past 24 hours: This is a 71 yo with a medical history of type 2 DM on insulin, A.fib on Xarelto, CHF, urinary retension with suprapubic catheter who was found to be confused by neighbours. Her suprapubic catheter was clamped for an unknown amount of time, and her CT shows perinephric stranding with bilateral hydronephrosis. This was unclamped with over 2L of urine drained. She was started on ceftriaxone. In the ED she was also found to be in HHS and started on an insulin drip. On my assessment she awoke to touch, not voice. She was not participatory in an interview, however did say no, no, no several times. She also shook her head yes when I asked if she was tired. I am unsure of her baseline mental status. She was having her diabetes management adjusted and was not on any long acting insulin. Exam Const General: no acute distress Nutritional Appearance: well nourished [facility] Head: normocephalic Ears: external ears normal and no periauricular adenopathy General nose exam: nasal mucous membranes and turbinates normal Face and sinus: sinuses nontender Mouth: oropharynx normal and other (dry lips and mouth) Eyes General: appearance normal, both eyes and all related structures Pupils: PERRL Neck Neck: normal visual inspection and no lymphadenopathy Chest Chest: normal inspection of the chest Resp Effort & Inspection: normal respiratory effort Auscultation: clear to auscultation bilaterally, no rales, no rhonchi and no wheezes Cardio Rate: regular rate Rhythm: regular rhythm Heart Sounds: S1 normal, S2 normal and no murmurs Pulses: radial pulses present bilaterally GI Inspection: other (suprapubic catheter in place and draining) Palpation: soft Skin General skin exam: no rashes or lesions noted Neuro General: patient alert, patient awake and patient oriented x3 Extrem General: no clubbing, no cyanosis and edema Psych Mental Status: mental status grossly normal Affect: normal affect Attitude: cooperative Most Recent VS/Results Last Vital Signs Temp 36.6 C 07/31/21 03:35 Pulse 116 H 07/31/21 07:01 Resp 13 07/31/21 07:01 BP 125/51 L 07/31/21 07:01 Pulse Ox 91 L 07/31/21 07:01 Laboratory Results - last 24 hr 07/30/21 07/30/21 07/30/21 23:34 23:34 23:34 WBC 7.62 RBC 4.23 Hgb 11.7 Hct 38.8 MCV 91.7 MCH 27.7 MCHC 30.2 L RDW 13.5 Plt Count 345 MPV 11.0 Immature Gran % 0.3 Neutrophils % 64.6 Lymphocytes % 22.7 Monocytes % 10.5 Eosinophils % 1.4 Basophils % 0.5 Nucleated RBC % 0 Absolute Neutrophils 4.92 Absolute Lymphocytes 1.73 Absolute Monocytes 0.80 Absolute Eosinophils 0.11 Absolute Basophils 0.04 PT INR APTT VBG pH VBG pCO2 VBG pO2 VBG HCO3 VBG Total CO2 VBG O2 Saturation VBG Base Excess VBG Lactate 1.7 H Sodium 122 L* Potassium 6.0 H Chloride 87 L Carbon Dioxide 25.3 Anion Gap 9.7 BUN 36 H Creatinine 1.6 H Estimated GFR/1.73 m2 31.60 Glucose 882 H* Hemoglobin A1c Calcium 9.0 Phosphorus Magnesium 1.5 L Total Bilirubin 0.3 AST 11 L ALT 17 Alkaline Phosphatase 70 Troponin I NT-Pro-B Natriuret Pep Total Protein 8.3 H Albumin 3.5 Procalcitonin 0.1 TSH 0.84 Urine Color Urine Clarity Urine pH Ur Specific [place] Urine Protein Urine Ketones Urine Blood Urine Nitrite Urine Bilirubin Urine Urobilinogen Ur Leukocyte Esterase Urine RBC Urine WBC Ur Epithelial Cells Urine Crystals Urine Bacteria Urine Mucus Ur Culture Indicated? Urine Glucose COVID-19 Source SARS-CoV-2 (PCR) 07/30/21 07/30/21 07/30/21 23:34 23:34 23:34 WBC RBC Hgb Hct MCV MCH MCHC RDW Plt Count MPV Immature Gran % Neutrophils % Lymphocytes % Monocytes % Eosinophils % Basophils % Nucleated RBC % Absolute Neutrophils Absolute Lymphocytes Absolute Monocytes Absolute Eosinophils Absolute Basophils PT 11.2 H INR 1.1 APTT 26.5 VBG pH 7.34 VBG pCO2 49 VBG pO2 34 VBG HCO3 26 VBG Total CO2 25 VBG O2 Saturation 62 VBG Base Excess 1 VBG Lactate Sodium Potassium Chloride Carbon Dioxide Anion Gap BUN Creatinine Estimated GFR/1.73 m2 Glucose Hemoglobin A1c Calcium Phosphorus Magnesium Total Bilirubin AST ALT Alkaline Phosphatase Troponin I NT-Pro-B Natriuret Pep Total Protein Albumin Procalcitonin TSH Urine Color Straw Urine Clarity Cloudy Urine pH 6.5 Ur Specific [place] 1.010 Urine Protein Negative Urine Ketones Negative Urine Blood Small H Urine Nitrite Negative Urine Bilirubin Negative Urine Urobilinogen 0.2 Ur Leukocyte Esterase Trace H Urine RBC 3-5 H Urine WBC >50 H Ur Epithelial Cells Negative Urine Crystals Negative Urine Bacteria Packed Urine Mucus Negative Ur Culture Indicated? Yes Urine Glucose 500 H COVID-19 Source SARS-CoV-2 (PCR) 07/31/21 07/31/21 07/31/21 01:03 02:20 02:20 WBC RBC Hgb Hct MCV MCH MCHC RDW Plt Count MPV Immature Gran % Neutrophils % Lymphocytes % Monocytes % Eosinophils % Basophils % Nucleated RBC % Absolute Neutrophils Absolute Lymphocytes Absolute Monocytes Absolute Eosinophils Absolute Basophils PT INR APTT VBG pH VBG pCO2 VBG pO2 VBG HCO3 VBG Total CO2 VBG O2 Saturation VBG Base Excess VBG Lactate 2.8 H* Sodium 126 L Potassium 5.0 Chloride 91 L Carbon Dioxide 23.2 Anion Gap 11.8 H BUN 33 H Creatinine 1.5 H Estimated GFR/1.73 m2 34.04 Glucose 712 H* Hemoglobin A1c Calcium 9.5 Phosphorus 3.4 Magnesium 1.9 Total Bilirubin AST ALT Alkaline Phosphatase Troponin I NT-Pro-B Natriuret Pep Total Protein Albumin Procalcitonin TSH Urine Color Urine Clarity Urine pH Ur Specific [place] Urine Protein Urine Ketones Urine Blood Urine Nitrite Urine Bilirubin Urine Urobilinogen Ur Leukocyte Esterase Urine RBC Urine WBC Ur Epithelial Cells Urine Crystals Urine Bacteria Urine Mucus Ur Culture Indicated? Urine Glucose COVID-19 Source Nasal/Nares SARS-CoV-2 (PCR) Negative 07/31/21 07/31/21 07/31/21 02:20 02:20 05:20 WBC RBC Hgb Hct MCV MCH MCHC RDW Plt Count MPV Immature Gran % Neutrophils % Lymphocytes % Monocytes % Eosinophils % Basophils % Nucleated RBC % Absolute Neutrophils Absolute Lymphocytes Absolute Monocytes Absolute Eosinophils Absolute Basophils PT INR APTT VBG pH VBG pCO2 VBG pO2 VBG HCO3 VBG Total CO2 VBG O2 Saturation VBG Base Excess VBG Lactate Sodium 133 L Potassium 4.6 Chloride 98 Carbon Dioxide 26.9 Anion Gap 8.1 BUN 27 H Creatinine 1.3 H Estimated GFR/1.73 m2 40.15 Glucose 712 H* 475 H D Hemoglobin A1c Calcium 9.3 Phosphorus 2.5 L Magnesium 2.2 Total Bilirubin AST ALT Alkaline Phosphatase Troponin I < 50 NT-Pro-B Natriuret Pep 1990 H Total Protein Albumin Procalcitonin TSH Urine Color Urine Clarity Urine pH Ur Specific [place] Urine Protein Urine Ketones Urine Blood Urine Nitrite Urine Bilirubin Urine Urobilinogen Ur Leukocyte Esterase Urine RBC Urine WBC Ur Epithelial Cells Urine Crystals Urine Bacteria Urine Mucus Ur Culture Indicated? Urine Glucose COVID-19 Source SARS-CoV-2 (PCR) 07/31/21 07/31/21 07/31/21 05:20 05:20 05:20 WBC 8.61 RBC 4.42 Hgb 12.0 Hct 38.2 MCV 86.4 D MCH 27.1 MCHC 31.4 L RDW 12.8 Plt Count 352 MPV 10.9 Immature Gran % 0.2 Neutrophils % 78.4 Lymphocytes % 13.7 Monocytes % 7.1 Eosinophils % 0.3 Basophils % 0.3 Nucleated RBC % 0 Absolute Neutrophils 6.74 H Absolute Lymphocytes 1.18 L Absolute Monocytes 0.61 Absolute Eosinophils 0.03 Absolute Basophils 0.03 PT INR APTT VBG pH VBG pCO2 VBG pO2 VBG HCO3 VBG Total CO2 VBG O2 Saturation VBG Base Excess VBG Lactate Sodium Potassium Chloride Carbon Dioxide Anion Gap BUN Creatinine Estimated GFR/1.73 m2 Glucose 475 H Hemoglobin A1c 13.4 H Calcium Phosphorus Magnesium Total Bilirubin AST ALT Alkaline Phosphatase Troponin I NT-Pro-B Natriuret Pep Total Protein Albumin Procalcitonin TSH Urine Color Urine Clarity Urine pH Ur Specific [place] Urine Protein Urine Ketones Urine Blood Urine Nitrite Urine Bilirubin Urine Urobilinogen Ur Leukocyte Esterase Urine RBC Urine WBC Ur Epithelial Cells Urine Crystals Urine Bacteria Urine Mucus Ur Culture Indicated? Urine Glucose COVID-19 Source SARS-CoV-2 (PCR) 07/31/21 06:00 WBC RBC Hgb Hct MCV MCH MCHC RDW Plt Count MPV Immature Gran % Neutrophils % Lymphocytes % Monocytes % Eosinophils % Basophils % Nucleated RBC % Absolute Neutrophils Absolute Lymphocytes Absolute Monocytes Absolute Eosinophils Absolute Basophils PT INR APTT VBG pH VBG pCO2 VBG pO2 VBG HCO3 VBG Total CO2 VBG O2 Saturation VBG Base Excess VBG Lactate Sodium Cancelled Potassium Cancelled Chloride Cancelled Carbon Dioxide Cancelled Anion Gap Cancelled BUN Cancelled Creatinine Cancelled Estimated GFR/1.73 m2 Cancelled Glucose Cancelled Hemoglobin A1c Calcium Cancelled Phosphorus Cancelled Magnesium Cancelled Total Bilirubin AST ALT Alkaline Phosphatase Troponin I NT-Pro-B Natriuret Pep Total Protein Albumin Procalcitonin TSH Urine Color Urine Clarity Urine pH Ur Specific [place] Urine Protein Urine Ketones Urine Blood Urine Nitrite Urine Bilirubin Urine Urobilinogen Ur Leukocyte Esterase Urine RBC Urine WBC Ur Epithelial Cells Urine Crystals Urine Bacteria Urine Mucus Ur Culture Indicated? Urine Glucose COVID-19 Source SARS-CoV-2 (PCR) Review of Systems Unobtainable due to mental status Time spent with patient Time spent in Critical Care: 45 Time spent in Critical care included: Coordination of care, Chart review, Documenting critically ill care, Time at immediate bedside and Discussing critically ill care with other medical staff
[2021-07-31] MEDS: Normal Saline Flush 10 ML SYR IVP ×2 (09:15→15:59)
[2021-07-31] MEDS: Rivaroxaban 15 MG TABLET PO (09:34)
[2021-07-31] MEDS: dilTIAZem CD 120 MG CAPCR 240 MG PO (09:34)
[2021-07-31] MEDS: Metoprolol CR 100 MG TABCR PO (09:34)
[2021-07-31] MEDS: Magnesium Oxide 400 MG TAB PO (09:34)
[2021-07-31] MEDS: Calcium 600mg/Vit D 200U TAB 1 TAB PO ×2 (09:34→19:37)
[2021-07-31] MEDS: Omeprazole 20 MG CAPCR PO (09:34)
[2021-07-31] MEDS: Aspirin E.C. 81 MG TABEC PO (09:34)
[2021-07-31] MEDS: PIPERACILLIN/TAZO 3.375 GM in Normal Saline 50 ML IVPB ×3 (09:36→21:14)
[2021-07-31 10:19] LABS: Lactate 1.3 mmol/L (0.6-1.4)
[2021-07-31 10:33] LABS: BUN 23 mg/dL (7-18); CREATININE 1.2 mg/dL (0.55-1.02); Chloride 99 mmol/L (98-107); Estimated GFR 44.04 (mL/min/1.73m2); Glucose 324 mg/dL (74-106); Magnesium 2.2 mg/dL (1.8-2.4); PHOSPHORUS 3.2 mg/dL (2.6-4.7); Potassium 4.3 mmol/L (3.5-5.1); Sodium 133 mmol/L (136-145)
[2021-07-31] MEDS: DEXTROSE 5%-0.45% SALINE 1,000 ML 125 ML IV (11:15)
--- NOTE | 2021-07-31 12:04 | WOUNDCONS_ITS ---
- If Service Date Differs Date of service: 07/31/21 Time of Service: 10:00 Wound Initial Evaluation Narrative: Patient is a 71 yof , she was brought to the ED by ambulance after neighbors her her yelling at the window and called for a welfare check. She is in the ICU on an insulin drip for HHNC and is also seen for Toxic metabolic encephalopathy. Patient is alert and oriented 2 to 3. Knows she lives in [facility], Knows she's in the hospital, but cannot identify the hospital. She is open to the wound consult. Calls her wounds poisoning by bed bugs. Reviewed goals of treatment with her and she signs the consent. H&P labs and other pertinent information were reviewed prior to the consult. - Wound Right Lower Tib/Fib(lower leg) Wound Type: Statis Ulcer Wound General Appearance: Reddened, Draining, Bleeding, Unapproximated Wound Bed Greatest Portion: Yellow (Slough) Wound Bed Lesser Portion: Red (Granulation) Percent of Wound Bed Granulated/Red: 40 Percent of Wound Bed Slough/Yellow: 60 Wound Length: 5.2 cm Wound Width: 1.7 cm Wound Depth: 0.2 cm Wound Drainage Amount: Minimal Wound Drainage Odor: None/Absent Wound Drainage Description: Bloody Wound Topical Solution/Irrigant: Antibiotic Irrigant (Anasept) Wound Debridement Method: Mechanical (Debrisoft sponge) Wound Debridement Result: Healthy Tissue Revealed Wound Debridement Amount of Tissue Removed: Moderate Additional Other Comments: Scabbed area removed leaving area of granulation and slough beneath Lumbar/Sacral Wound Type: Pressure Ulcer Pressure Ulcer Stage: II Wound General Appearance: Reddened, Unapproximated Wound Bed Greatest Portion: Pale [place] Wound Surrounding Tissue Appearance: [place] Percent of Wound Bed Granulated/Red: 0 Wound Length: 3.4 cm Wound Width: 2.2 cm Wound Depth: 0.3 cm Wound Drainage Amount: None Wound Drainage Odor: None/Absent Wound Drainage Description: No drainage Wound Topical Solution/Irrigant: Antibiotic Irrigant (Anasept) Wound Debridement Method: Gauze Wound Debridement Result: Healthy Tissue Revealed Wound Debridement Amount of Tissue Removed: None Left Lumbar/Sacral Wound Type: Pressure Ulcer Pressure Ulcer Stage: II Wound General Appearance: Unapproximated Wound Bed Greatest Portion: Pale [place] Wound Bed Lesser Portion: Red (Granulation) Wound Surrounding Tissue Appearance: [place] Percent of Wound Bed Granulated/Red: 40 Wound Length: 3.7 cm Wound Width: 0.9 cm Wound Depth: 0.1 cm Wound Drainage Amount: None Wound Drainage Odor: None/Absent Wound Drainage Description: No drainage Wound Topical Solution/Irrigant: Antibiotic Irrigant (Anasept) Wound Debridement Method: Gauze Wound Debridement Result: Healthy Tissue Revealed Wound Debridement Amount of Tissue Removed: None Right Lumbar/Sacral Wound Type: Pressure Ulcer Pressure Ulcer Stage: II Wound General Appearance: Reddened, Bleeding, Unapproximated, Other Wound Bed Greatest Portion: Red (Granulation) Wound Bed Lesser Portion: Pale [place] Wound Surrounding Tissue Appearance: [place] Percent of Wound Bed Granulated/Red: 50 Wound Length: 1.6 cm Wound Width: 0.8 cm Wound Depth: 0.1 cm Wound Drainage Amount: None Wound Drainage Odor: None/Absent Wound Drainage Description: No drainage Wound Topical Solution/Irrigant: Antibiotic Irrigant (Anasept) Wound Debridement Method: Gauze Wound Debridement Result: Healthy Tissue Revealed Wound Debridement Amount of Tissue Removed: None - Circulation, Sensation, Motion Edema Degree: 2+ Peripheral Pulse Strength: Weak Capillary Refill: Less than 3 seconds Sensation Description: Within Normal Limits (Patient denied neuropathy) Skin Temperature: Warm Skin Color: Pale - Pain Pain Level: 0 Patient Who is a diabetic, Needs encouragement to offload pressure. She remains in the ICU on an insulin drip. Patient is open to wound consult, she wants the wounds healed. - Photo Photo: - Treatment/Dressing Change Topicals/Ointments: Anasept Gel Cleanse With: Anasept Dressing Types: Hydrocollid (Duoderm), Mepilex (contact layer) - Recomendation Recomendation:: Sacral and Buttock Wounds. Cleanse with Anasept spray and gauze, pat dry. Apply skin prep to the Gabriella skin. Cover with Duoderm. Change every 3 days or PRN. Right Lower Leg. Cleanse with Anasept spray, allow to dwell for 2 minutes. Scrub with Debrisoft sponge, pat dry. Apply nickel layer of Anasept gel to the wound bed. Cover with Mepilex border. Change every other day or PRN. Physcian/Nurse Practioner Notified: Yes (Dr. Ruggiero) Treatment Time - Time Total Time Spent with Patient: 1 hour - Patient Will be Seen Weekly Treatment: 3x/wk - For: For:: 1 week
--- NOTE | 2021-07-31 12:15 | PGE_ITS ---
Date of Service Date of service: 07/31/21 Time of Service: 12:16 Assessment and Plan Assessment and plan (1) HHNC (hyperglycemic hyperosmolar nonketotic coma): Status: Acute Assessment and plan: Glucose trending down Continuing insulin drip. Initiated basal insulin Initiated diet with plan to stop drip 1 hour after eating. A1c 13.4 (2) Toxic metabolic encephalopathy: Status: Acute Assessment and plan: In the setting of HHNC; much improved. Approaching baseline it appears. (3) Obstructive uropathy: Status: Acute Assessment and plan: in setting of a clamped suprapubic catheter. There does seem to also be a 4 mm stone causing ureteral obstruction on the R. Urology at [facility] [place] felt that the patient did not require immediate intervention since there were no clear signs of infection/sepsis. KATHLEEN Owen changed the catheter. Continue empiric ceftriaxone. (4) Atrial fibrillation: Assessment and plan: Rate now in the low 100's to 110's. Continue home diltiazem and metoprolol. Prn IV metoprolol. Continue home xarelto. Qualifiers: Atrial fibrillation type: persistent (not longstanding) Qualified Code(s): I48.19 - Other persistent atrial fibrillation (5) Wound of right lower extremity: Status: Acute Assessment and plan: wound care appreciated. (6) Sacral decubitus ulcer, stage II: Status: Acute Assessment and plan: Wound care appreciated. (7) Poorly controlled type 2 diabetes mellitus: Status: Chronic Assessment and plan: See [facility] tobacco educator consulted. (8) Hyponatremia: Status: Acute Assessment and plan: Component of pseudohyponatremia. Improved with glucose improvement. Now 134. (9) Hypomagnesemia: Status: Acute Assessment and plan: Repleted; now 2.2. (10) Hyperkalemia: Status: Resolved Assessment and plan: Resolved with IV hydration. Repeat potassium is 5.0 > 4.0. May require repletion as we continue to treat hyperglycemia. (11) DVT prophylaxis: Status: Acute Assessment and plan: Continue home xarelto (12) Discharge planning issues: Status: Acute Assessment and plan: Full code Admit to ICU. Consult palliative care. Consult physical therapy. (13) Urinary tract infection: Status: Acute Assessment and plan: Culture growing E.Coli. Does not appear to be pyelonephritis Cont Rocephin Subjective Subjective Patient reports: no new complaints and afebrile; denies diarrhea, nausea, vomiting and shortness of breath Interval history since last seen: No flank pain. Exam Const General: no acute distress Nutritional Appearance: obese Orientation: awake (arouses with verbal commands) Eyes General: appearance normal, both eyes and all related structures Sclera: sclerae normal Resp Effort & Inspection: normal respiratory effort Auscultation: clear to auscultation bilaterally Cardio Rate: regular rate Rhythm: regular rhythm Heart Sounds: S1 normal and S2 normal GI Inspection: other (suprapubic catheter in place) Palpation: soft and nontender Skin Rashes: no rashes Full body images: 1. appx 1/2 cm red base with small amt of bloody discharge. 2. Stage II pressure ulcer Neuro General: moves all extremities Speech: speech normal Extrem General: no pedal edema and no calf tenderness Psych Appearance: grossly normal Affect: blunted Objective Last Vital Signs Temp 37.3 C 07/31/21 11:31 Pulse 103 H 07/31/21 11:31 Resp 12 07/31/21 11:31 BP 108/56 L 07/31/21 11:31 Pulse Ox 94 07/31/21 11:31 Laboratory Results - last 24 hr 07/30/21 07/30/21 07/30/21 23:34 23:34 23:34 WBC 7.62 RBC 4.23 Hgb 11.7 Hct 38.8 MCV 91.7 MCH 27.7 MCHC 30.2 L RDW 13.5 Plt Count 345 MPV 11.0 Immature Gran % 0.3 Neutrophils % 64.6 Lymphocytes % 22.7 Monocytes % 10.5 Eosinophils % 1.4 Basophils % 0.5 Nucleated RBC % 0 Absolute Neutrophils 4.92 Absolute Lymphocytes 1.73 Absolute Monocytes 0.80 Absolute Eosinophils 0.11 Absolute Basophils 0.04 PT INR APTT VBG pH VBG pCO2 VBG pO2 VBG HCO3 VBG Total CO2 VBG O2 Saturation VBG Base Excess VBG Lactate 1.7 H Sodium 122 L* Potassium 6.0 H Chloride 87 L Carbon Dioxide 25.3 Anion Gap 9.7 BUN 36 H Creatinine 1.6 H Estimated GFR/1.73 m2 31.60 Glucose 882 H* Hemoglobin A1c Calcium 9.0 Phosphorus Magnesium 1.5 L Total Bilirubin 0.3 AST 11 L ALT 17 Alkaline Phosphatase 70 Troponin I NT-Pro-B Natriuret Pep Total Protein 8.3 H Albumin 3.5 Procalcitonin 0.1 TSH 0.84 Urine Color Urine Clarity Urine pH Ur Specific [place] Urine Protein Urine Ketones Urine Blood Urine Nitrite Urine Bilirubin Urine Urobilinogen Ur Leukocyte Esterase Urine RBC Urine WBC Ur Epithelial Cells Urine Crystals Urine Bacteria Urine Mucus Ur Culture Indicated? Urine Glucose COVID-19 Source SARS-CoV-2 (PCR) 07/30/21 07/30/21 07/30/21 23:34 23:34 23:34 WBC RBC Hgb Hct MCV MCH MCHC RDW Plt Count MPV Immature Gran % Neutrophils % Lymphocytes % Monocytes % Eosinophils % Basophils % Nucleated RBC % Absolute Neutrophils Absolute Lymphocytes Absolute Monocytes Absolute Eosinophils Absolute Basophils PT 11.2 H INR 1.1 APTT 26.5 VBG pH 7.34 VBG pCO2 49 VBG pO2 34 VBG HCO3 26 VBG Total CO2 25 VBG O2 Saturation 62 VBG Base Excess 1 VBG Lactate Sodium Potassium Chloride Carbon Dioxide Anion Gap BUN Creatinine Estimated GFR/1.73 m2 Glucose Hemoglobin A1c Calcium Phosphorus Magnesium Total Bilirubin AST ALT Alkaline Phosphatase Troponin I NT-Pro-B Natriuret Pep Total Protein Albumin Procalcitonin TSH Urine Color Straw Urine Clarity Cloudy Urine pH 6.5 Ur Specific [place] 1.010 Urine Protein Negative Urine Ketones Negative Urine Blood Small H Urine Nitrite Negative Urine Bilirubin Negative Urine Urobilinogen 0.2 Ur Leukocyte Esterase Trace H Urine RBC 3-5 H Urine WBC >50 H Ur Epithelial Cells Negative Urine Crystals Negative Urine Bacteria Packed Urine Mucus Negative Ur Culture Indicated? Yes Urine Glucose 500 H COVID-19 Source SARS-CoV-2 (PCR) 07/31/21 07/31/21 07/31/21 01:03 02:20 02:20 WBC RBC Hgb Hct MCV MCH MCHC RDW Plt Count MPV Immature Gran % Neutrophils % Lymphocytes % Monocytes % Eosinophils % Basophils % Nucleated RBC % Absolute Neutrophils Absolute Lymphocytes Absolute Monocytes Absolute Eosinophils Absolute Basophils PT INR APTT VBG pH VBG pCO2 VBG pO2 VBG HCO3 VBG Total CO2 VBG O2 Saturation VBG Base Excess VBG Lactate 2.8 H* Sodium 126 L Potassium 5.0 Chloride 91 L Carbon Dioxide 23.2 Anion Gap 11.8 H BUN 33 H Creatinine 1.5 H Estimated GFR/1.73 m2 34.04 Glucose 712 H* Hemoglobin A1c Calcium 9.5 Phosphorus 3.4 Magnesium 1.9 Total Bilirubin AST ALT Alkaline Phosphatase Troponin I NT-Pro-B Natriuret Pep Total Protein Albumin Procalcitonin TSH Urine Color Urine Clarity Urine pH Ur Specific [place] Urine Protein Urine Ketones Urine Blood Urine Nitrite Urine Bilirubin Urine Urobilinogen Ur Leukocyte Esterase Urine RBC Urine WBC Ur Epithelial Cells Urine Crystals Urine Bacteria Urine Mucus Ur Culture Indicated? Urine Glucose COVID-19 Source Nasal/Nares SARS-CoV-2 (PCR) Negative 07/31/21 07/31/21 07/31/21 02:20 02:20 05:20 WBC RBC Hgb Hct MCV MCH MCHC RDW Plt Count MPV Immature Gran % Neutrophils % Lymphocytes % Monocytes % Eosinophils % Basophils % Nucleated RBC % Absolute Neutrophils Absolute Lymphocytes Absolute Monocytes Absolute Eosinophils Absolute Basophils PT INR APTT VBG pH VBG pCO2 VBG pO2 VBG HCO3 VBG Total CO2 VBG O2 Saturation VBG Base Excess VBG Lactate Sodium 133 L Potassium 4.6 Chloride 98 Carbon Dioxide 26.9 Anion Gap 8.1 BUN 27 H Creatinine 1.3 H Estimated GFR/1.73 m2 40.15 Glucose 712 H* 475 H D Hemoglobin A1c Calcium 9.3 Phosphorus 2.5 L Magnesium 2.2 Total Bilirubin AST ALT Alkaline Phosphatase Troponin I < 50 NT-Pro-B Natriuret Pep 1990 H Total Protein Albumin Procalcitonin TSH Urine Color Urine Clarity Urine pH Ur Specific [place] Urine Protein Urine Ketones Urine Blood Urine Nitrite Urine Bilirubin Urine Urobilinogen Ur Leukocyte Esterase Urine RBC Urine WBC Ur Epithelial Cells Urine Crystals Urine Bacteria Urine Mucus Ur Culture Indicated? Urine Glucose COVID-19 Source SARS-CoV-2 (PCR) 07/31/21 07/31/21 07/31/21 05:20 05:20 05:20 WBC 8.61 RBC 4.42 Hgb 12.0 Hct 38.2 MCV 86.4 D MCH 27.1 MCHC 31.4 L RDW 12.8 Plt Count 352 MPV 10.9 Immature Gran % 0.2 Neutrophils % 78.4 Lymphocytes % 13.7 Monocytes % 7.1 Eosinophils % 0.3 Basophils % 0.3 Nucleated RBC % 0 Absolute Neutrophils 6.74 H Absolute Lymphocytes 1.18 L Absolute Monocytes 0.61 Absolute Eosinophils 0.03 Absolute Basophils 0.03 PT INR APTT VBG pH VBG pCO2 VBG pO2 VBG HCO3 VBG Total CO2 VBG O2 Saturation VBG Base Excess VBG Lactate Sodium Potassium Chloride Carbon Dioxide Anion Gap BUN Creatinine Estimated GFR/1.73 m2 Glucose 475 H Hemoglobin A1c 13.4 H Calcium Phosphorus Magnesium Total Bilirubin AST ALT Alkaline Phosphatase Troponin I NT-Pro-B Natriuret Pep Total Protein Albumin Procalcitonin TSH Urine Color Urine Clarity Urine pH Ur Specific [place] Urine Protein Urine Ketones Urine Blood Urine Nitrite Urine Bilirubin Urine Urobilinogen Ur Leukocyte Esterase Urine RBC Urine WBC Ur Epithelial Cells Urine Crystals Urine Bacteria Urine Mucus Ur Culture Indicated? Urine Glucose COVID-19 Source SARS-CoV-2 (PCR) 07/31/21 07/31/21 07/31/21 06:00 10:10 10:10 WBC RBC Hgb Hct MCV MCH MCHC RDW Plt Count MPV Immature Gran % Neutrophils % Lymphocytes % Monocytes % Eosinophils % Basophils % Nucleated RBC % Absolute Neutrophils Absolute Lymphocytes Absolute Monocytes Absolute Eosinophils Absolute Basophils PT INR APTT VBG pH VBG pCO2 VBG pO2 VBG HCO3 VBG Total CO2 VBG O2 Saturation VBG Base Excess VBG Lactate 1.3 Sodium Cancelled 133 L Potassium Cancelled 4.3 Chloride Cancelled 99 Carbon Dioxide Cancelled 27.0 Anion Gap Cancelled 7.0 BUN Cancelled 23 H Creatinine Cancelled 1.2 H Estimated GFR/1.73 m2 Cancelled 44.04 Glucose Cancelled 324 H D Hemoglobin A1c Calcium Cancelled 9.0 Phosphorus Cancelled 3.2 Magnesium Cancelled 2.2 Total Bilirubin AST ALT Alkaline Phosphatase Troponin I NT-Pro-B Natriuret Pep Total Protein Albumin Procalcitonin TSH Urine Color Urine Clarity Urine pH Ur Specific [place] Urine Protein Urine Ketones Urine Blood Urine Nitrite Urine Bilirubin Urine Urobilinogen Ur Leukocyte Esterase Urine RBC Urine WBC Ur Epithelial Cells Urine Crystals Urine Bacteria Urine Mucus Ur Culture Indicated? Urine Glucose COVID-19 Source SARS-CoV-2 (PCR)
--- NOTE | 2021-07-31 12:41 | W.UROLOGYCON ---
Date of service: 07/31/21 Time of Service: 12:00 Assessment and Plan Assessment and plan (1) Urinary retention: Status: Acute Assessment and plan: Suprapubic catheter was changed. We will plan on scheduling this individual for her next suprapubic catheter change in the outpatient clinic for 1 month from now. Recommend at this point that the suprapubic tube be hooked to continuous bedside drainage to allow the hydronephrosis bilaterally time to resolve. Also it appears that she has a 4 millimeter calculus in the lower right ureter a few cm above the UVJ. At this point she is not having any flank pain concerns. Stone the size has a good chance to pass on its own. Dictation was done by [employer] voice recognition. Errors may be present within the note. History of Present Illness Narrative: Hope is a 71-year-old female with a long history of urinary retention. She was unable to perform intermittent catheterization, so she was treated with placement of an suprapubic tube. She comes into our office monthly to have the tube changed. She, however, missed her appointment last week to have her suprapubic tube changed. She was admitted to the hospital for altered mental status. During the emergency room evaluation her suprapubic tube was found to be plugged at the end of the catheter as it typically is to allow Hope to plug and unplug to empty out her bladder. Because of the wheezes mental altered status she reports that she was unable to unplug and was found to have 2400 mils of urine in her bladder. On imaging there was note of bilateral hydronephrosis related to the distention of her bladder with his high volume. We have been asked to change her catheter while she is hospitalized. Currently her suprapubic tube is hooked to continuous drainage. Patient reports no suprapubic discomfort or or concerns for urology. Consults Consult date: 07/31/21 Requesting physician: Amarilis May Review of Systems Constitutional Constitutional: Reports as per HPI Genitourinary Genitourinary: Reports as per HPI PFSH All Active Problems (Updated 07/31/21 @ 10:59 by Estela Decker MD) Nephrolithiasis (Chronic) Pyelonephritis (Acute) Sacral decubitus ulcer, stage II (Acute) Wound of right lower extremity (Acute) Hyponatremia (Acute) Discharge planning issues (Acute) DVT prophylaxis (Acute) Pyuria (Acute) Obstructive uropathy (Acute) Toxic metabolic encephalopathy (Acute) HHNC (hyperglycemic hyperosmolar nonketotic coma) (Acute) Hyperglycemia (Acute) Urinary tract infection (Acute) Altered mental status (Acute) Trochanteric bursitis, right hip (Acute) Right ankle sprain (Acute) Hip pain, right (Acute) GI bleed (Acute) Fracture, lumbar vertebra, compression (Acute) Multiple rib fractures involving four or more ribs (Acute) Hypomagnesemia (Acute) PSVT (paroxysmal supraventricular tachycardia) (Acute) Urinary retention (Acute 03/31/16) Poorly controlled diabetes mellitus (Chronic) Transient neurologic deficit (Acute) Fungal dermatitis (Acute) Atrial flutter (Acute) Vaginal bleeding, abnormal (Acute) Atrial fibrillation and flutter (Chronic) Poorly controlled type 2 diabetes mellitus (Chronic) Hypomagnesemia (Acute) Diabetes mellitus type 2 in obese (Acute) Fracture of femoral neck, right (Acute) Retention, urine (Acute) Medical History (Updated 07/31/21 @ 10:59 by Estela Decker MD) Atrial fibrillation Cataracts, bilateral CHF (congestive heart failure) LVEF 50-55%, diastolic dysfunction Diabetes Hyperlipidemia Hypertension Pulmonary hypertension S/P right hip fracture TIA (transient ischemic attack) Surgical History History of suprapubic catheter Status post right hip replacement Family History Other Diabetes Heart disease Hyperlipidemia Hypertension Stroke Social History Smoking/Tobacco Use Status: Former Tobacco Use Smoking risk assessment performed?: Yes Alcohol Intake: never Drug use: Never Substance use type: does not use Household members: none Do you feel safe at home: Yes Do you feel safe in your relationship?: Yes Additional Social history: Lives alone. [address] Does not drive. Exam Const Orientation: alert, awake and oriented x3 Eyes Sclera: sclerae normal Resp Effort & Inspection: normal respiratory effort GI Inspection: normal to inspection and non-distended Palpation: soft, nontender and other (Suprapubic tube clean dry and intact) Results Last Vital Signs Temp 99.1 F 07/31/21 11:31 Pulse 103 H 07/31/21 11:31 Resp 12 07/31/21 11:31 BP 108/56 L 07/31/21 11:31 Pulse Ox 94 07/31/21 11:31 Labs Result diagrams: 07/31/21 05:20 07/31/21 10:10 Labs: Laboratory Results - last 24 hr 07/30/21 07/30/21 07/30/21 23:34 23:34 23:34 WBC 7.62 RBC 4.23 Hgb 11.7 Hct 38.8 MCV 91.7 MCH 27.7 MCHC 30.2 L RDW 13.5 Plt Count 345 MPV 11.0 Immature Gran % 0.3 Neutrophils % 64.6 Lymphocytes % 22.7 Monocytes % 10.5 Eosinophils % 1.4 Basophils % 0.5 Nucleated RBC % 0 Absolute Neutrophils 4.92 Absolute Lymphocytes 1.73 Absolute Monocytes 0.80 Absolute Eosinophils 0.11 Absolute Basophils 0.04 PT INR APTT VBG pH VBG pCO2 VBG pO2 VBG HCO3 VBG Total CO2 VBG O2 Saturation VBG Base Excess VBG Lactate 1.7 H Sodium 122 L* Potassium 6.0 H Chloride 87 L Carbon Dioxide 25.3 Anion Gap 9.7 BUN 36 H Creatinine 1.6 H Estimated GFR/1.73 m2 31.60 Glucose 882 H* Hemoglobin A1c Calcium 9.0 Phosphorus Magnesium 1.5 L Total Bilirubin 0.3 AST 11 L ALT 17 Alkaline Phosphatase 70 Troponin I NT-Pro-B Natriuret Pep Total Protein 8.3 H Albumin 3.5 Procalcitonin 0.1 TSH 0.84 Urine Color Urine Clarity Urine pH Ur Specific [place] Urine Protein Urine Ketones Urine Blood Urine Nitrite Urine Bilirubin Urine Urobilinogen Ur Leukocyte Esterase Urine RBC Urine WBC Ur Epithelial Cells Urine Crystals Urine Bacteria Urine Mucus Ur Culture Indicated? Urine Glucose COVID-19 Source SARS-CoV-2 (PCR) 07/30/21 07/30/21 07/30/21 23:34 23:34 23:34 WBC RBC Hgb Hct MCV MCH MCHC RDW Plt Count MPV Immature Gran % Neutrophils % Lymphocytes % Monocytes % Eosinophils % Basophils % Nucleated RBC % Absolute Neutrophils Absolute Lymphocytes Absolute Monocytes Absolute Eosinophils Absolute Basophils PT 11.2 H INR 1.1 APTT 26.5 VBG pH 7.34 VBG pCO2 49 VBG pO2 34 VBG HCO3 26 VBG Total CO2 25 VBG O2 Saturation 62 VBG Base Excess 1 VBG Lactate Sodium Potassium Chloride Carbon Dioxide Anion Gap BUN Creatinine Estimated GFR/1.73 m2 Glucose Hemoglobin A1c Calcium Phosphorus Magnesium Total Bilirubin AST ALT Alkaline Phosphatase Troponin I NT-Pro-B Natriuret Pep Total Protein Albumin Procalcitonin TSH Urine Color Straw Urine Clarity Cloudy Urine pH 6.5 Ur Specific [place] 1.010 Urine Protein Negative Urine Ketones Negative Urine Blood Small H Urine Nitrite Negative Urine Bilirubin Negative Urine Urobilinogen 0.2 Ur Leukocyte Esterase Trace H Urine RBC 3-5 H Urine WBC >50 H Ur Epithelial Cells Negative Urine Crystals Negative Urine Bacteria Packed Urine Mucus Negative Ur Culture Indicated? Yes Urine Glucose 500 H COVID-19 Source SARS-CoV-2 (PCR) 07/31/21 07/31/21 07/31/21 01:03 02:20 02:20 WBC RBC Hgb Hct MCV MCH MCHC RDW Plt Count MPV Immature Gran % Neutrophils % Lymphocytes % Monocytes % Eosinophils % Basophils % Nucleated RBC % Absolute Neutrophils Absolute Lymphocytes Absolute Monocytes Absolute Eosinophils Absolute Basophils PT INR APTT VBG pH VBG pCO2 VBG pO2 VBG HCO3 VBG Total CO2 VBG O2 Saturation VBG Base Excess VBG Lactate 2.8 H* Sodium 126 L Potassium 5.0 Chloride 91 L Carbon Dioxide 23.2 Anion Gap 11.8 H BUN 33 H Creatinine 1.5 H Estimated GFR/1.73 m2 34.04 Glucose 712 H* Hemoglobin A1c Calcium 9.5 Phosphorus 3.4 Magnesium 1.9 Total Bilirubin AST ALT Alkaline Phosphatase Troponin I NT-Pro-B Natriuret Pep Total Protein Albumin Procalcitonin TSH Urine Color Urine Clarity Urine pH Ur Specific [place] Urine Protein Urine Ketones Urine Blood Urine Nitrite Urine Bilirubin Urine Urobilinogen Ur Leukocyte Esterase Urine RBC Urine WBC Ur Epithelial Cells Urine Crystals Urine Bacteria Urine Mucus Ur Culture Indicated? Urine Glucose COVID-19 Source Nasal/Nares SARS-CoV-2 (PCR) Negative 07/31/21 07/31/21 07/31/21 02:20 02:20 05:20 WBC RBC Hgb Hct MCV MCH MCHC RDW Plt Count MPV Immature Gran % Neutrophils % Lymphocytes % Monocytes % Eosinophils % Basophils % Nucleated RBC % Absolute Neutrophils Absolute Lymphocytes Absolute Monocytes Absolute Eosinophils Absolute Basophils PT INR APTT VBG pH VBG pCO2 VBG pO2 VBG HCO3 VBG Total CO2 VBG O2 Saturation VBG Base Excess VBG Lactate Sodium 133 L Potassium 4.6 Chloride 98 Carbon Dioxide 26.9 Anion Gap 8.1 BUN 27 H Creatinine 1.3 H Estimated GFR/1.73 m2 40.15 Glucose 712 H* 475 H D Hemoglobin A1c Calcium 9.3 Phosphorus 2.5 L Magnesium 2.2 Total Bilirubin AST ALT Alkaline Phosphatase Troponin I < 50 NT-Pro-B Natriuret Pep 1990 H Total Protein Albumin Procalcitonin TSH Urine Color Urine Clarity Urine pH Ur Specific [place] Urine Protein Urine Ketones Urine Blood Urine Nitrite Urine Bilirubin Urine Urobilinogen Ur Leukocyte Esterase Urine RBC Urine WBC Ur Epithelial Cells Urine Crystals Urine Bacteria Urine Mucus Ur Culture Indicated? Urine Glucose COVID-19 Source SARS-CoV-2 (PCR) 07/31/21 07/31/21 07/31/21 05:20 05:20 05:20 WBC 8.61 RBC 4.42 Hgb 12.0 Hct 38.2 MCV 86.4 D MCH 27.1 MCHC 31.4 L RDW 12.8 Plt Count 352 MPV 10.9 Immature Gran % 0.2 Neutrophils % 78.4 Lymphocytes % 13.7 Monocytes % 7.1 Eosinophils % 0.3 Basophils % 0.3 Nucleated RBC % 0 Absolute Neutrophils 6.74 H Absolute Lymphocytes 1.18 L Absolute Monocytes 0.61 Absolute Eosinophils 0.03 Absolute Basophils 0.03 PT INR APTT VBG pH VBG pCO2 VBG pO2 VBG HCO3 VBG Total CO2 VBG O2 Saturation VBG Base Excess VBG Lactate Sodium Potassium Chloride Carbon Dioxide Anion Gap BUN Creatinine Estimated GFR/1.73 m2 Glucose 475 H Hemoglobin A1c 13.4 H Calcium Phosphorus Magnesium Total Bilirubin AST ALT Alkaline Phosphatase Troponin I NT-Pro-B Natriuret Pep Total Protein Albumin Procalcitonin TSH Urine Color Urine Clarity Urine pH Ur Specific [place] Urine Protein Urine Ketones Urine Blood Urine Nitrite Urine Bilirubin Urine Urobilinogen Ur Leukocyte Esterase Urine RBC Urine WBC Ur Epithelial Cells Urine Crystals Urine Bacteria Urine Mucus Ur Culture Indicated? Urine Glucose COVID-19 Source SARS-CoV-2 (PCR) 07/31/21 07/31/21 07/31/21 06:00 10:10 10:10 WBC RBC Hgb Hct MCV MCH MCHC RDW Plt Count MPV Immature Gran % Neutrophils % Lymphocytes % Monocytes % Eosinophils % Basophils % Nucleated RBC % Absolute Neutrophils Absolute Lymphocytes Absolute Monocytes Absolute Eosinophils Absolute Basophils PT INR APTT VBG pH VBG pCO2 VBG pO2 VBG HCO3 VBG Total CO2 VBG O2 Saturation VBG Base Excess VBG Lactate 1.3 Sodium Cancelled 133 L Potassium Cancelled 4.3 Chloride Cancelled 99 Carbon Dioxide Cancelled 27.0 Anion Gap Cancelled 7.0 BUN Cancelled 23 H Creatinine Cancelled 1.2 H Estimated GFR/1.73 m2 Cancelled 44.04 Glucose Cancelled 324 H D Hemoglobin A1c Calcium Cancelled 9.0 Phosphorus Cancelled 3.2 Magnesium Cancelled 2.2 Total Bilirubin AST ALT Alkaline Phosphatase Troponin I NT-Pro-B Natriuret Pep Total Protein Albumin Procalcitonin TSH Urine Color Urine Clarity Urine pH Ur Specific [place] Urine Protein Urine Ketones Urine Blood Urine Nitrite Urine Bilirubin Urine Urobilinogen Ur Leukocyte Esterase Urine RBC Urine WBC Ur Epithelial Cells Urine Crystals Urine Bacteria Urine Mucus Ur Culture Indicated? Urine Glucose COVID-19 Source SARS-CoV-2 (PCR) Change Bladder Catheter Procedure performed by: Paola Owen Informed consent given: Yes Position of patient: supine Inplace catheter size (Fr): 16 Inplace catheter type: supra pubic Water amount removed from catheter balloon: 9cc Catheter removed: without difficulty Catheter intact: Yes Sterilizing agent: Yes Type of anesthesia: topical gel Catheter size (Fr): 16 Catheter type: supra pubic Lubrication: Yes Catheter inserted: without difficulty Volume instilled into catheter balloon: 10cc Urine color: yellow Urine clarity: clear Clots present: No Irrigation: No Catheter attached to: bedside drainage bag Patient tolerated procedure: well Complications: No
[2021-07-31 12:45] LABS: Anion Gap 5.5 mmol/L (3-11); BUN 23 mg/dL (7-18); CO2 27.5 mmol/L (21.0-32.0); CREATININE 1.1 mg/dL (0.55-1.02); Calcium 8.9 mg/dL (8.5-10.1); Chloride 101 mmol/L (98-107); Estimated GFR 48.69 (mL/min/1.73m2); Glucose 297 mg/dL (74-106); Sodium 134 mmol/L (136-145)
--- NOTE | 2021-07-31 13:40 | PT.INIE ---
Date of service: 07/31/21 Time of Service: 13:40 PT Notes Visit Reasons: HHNK,Toxic Metabolic Encephalopathy,Obstructive Physical Therapy Inpatient Initial Evaluation Date: 07/31/2021 Referring Doctor: Amarilis May MD PT Orders: PT CONSULT: Limited ability Precautions: Fall. Standard. Activity as tolerated. Patient Profile/Admitting Diagnosis: Hope is a 71-year-old female who presented to the ED via EMS on 07/24/2021 with altered mental status and generalized weakness. Patient is diagnosed with hyperglycemic hyperosmolar nonketotic coma, also metabolic encephalopathy, obstructive uropathy, pyuria, right lower extremity wound, stage II sacral decubitus, poorly controlled type is mellitus type II, hyponatremia,-hyperkalemia and atrial fibrillation. PMHX: All Active Problems (Updated 07/31/21 @ 03:18 by Amarilis May MD) Sacral decubitus ulcer, stage II (Acute) Wound of right lower extremity (Acute) Hyponatremia (Acute) Discharge planning issues (Acute) DVT prophylaxis (Acute) Pyuria (Acute) Obstructive uropathy (Acute) Toxic metabolic encephalopathy (Acute) HHNC (hyperglycemic hyperosmolar nonketotic coma) (Acute) Hyperglycemia (Acute) Urinary tract infection (Acute) Altered mental status (Acute) Trochanteric bursitis, right hip (Acute) Right ankle sprain (Acute) Hip pain, right (Acute) GI bleed (Acute) Fracture, lumbar vertebra, compression (Acute) Multiple rib fractures involving four or more ribs (Acute) Hypomagnesemia (Acute) PSVT (paroxysmal supraventricular tachycardia) (Acute) Urinary retention (Acute 03/31/16) Poorly controlled diabetes mellitus (Chronic) Transient neurologic deficit (Acute) Fungal dermatitis (Acute) Atrial flutter (Acute) Vaginal bleeding, abnormal (Acute) Atrial fibrillation and flutter (Chronic) Poorly controlled type 2 diabetes mellitus (Chronic) Hypomagnesemia (Acute) Diabetes mellitus type 2 in obese (Acute) Fracture of femoral neck, right (Acute) Retention, urine (Acute) Medical History (Updated 07/31/21 @ 03:18 by Amarilis May MD) Atrial fibrillation Cataracts, bilateral CHF (congestive heart failure) LVEF 50-55%, diastolic dysfunction Diabetes Hyperlipidemia Hypertension Pulmonary hypertension S/P right hip fracture TIA (transient ischemic attack) Surgical History History of suprapubic catheter Status post right hip replacement Social History/Home Situation: Lives on the third floor of the [facility] apartment. She has a ramp to enter and an elevator that leads to her apartment. Transportation via RCT. Modified independent using single-point cane prior to admission. Equipment Owned/DME: Standard walker, 4WW, FWW, SPC Subjective: Agreeable to PT consult. Reports being a little woozy when she first stood up from the edge of the bed. Denies headache and chest pain throughout session. Objective: General Observation: Supine in bed. Telemetry monitoring in place. Dressing to skin breakdown sacral area and left distal third of anterior leg Mental Status: Alert but disoriented as to place and time. Able to follow single step commands. Pain: 0/10 Vital Signs: WFL as closely monitored by telemetry ROM: Right Upper Extremity: Shoulder Flexion WFL. Shoulder abduction WFL. Shoulder ER/IR WFL. Elbow flexion WFL. Forearm pronation/supination WFL. Wrist flexion WFL. Opening and closing of hand WFL. Left Upper Extremity: Shoulder Flexion WFL. Shoulder abduction WFL. Shoulder ER/IR WFL. Elbow flexion WFL. Forearm pronation/supination WFL. Wrist flexion WFL. Opening and closing of hand WFL. Right Lower Extremity: Hip flexion WFL. Hip abduction WFL. Hip ER/IR WFL. Knee flexion 10 to 90 degrees. Knee extension -10 degrees. Ankle dorsiflexion to neutral only. Ankle plantarflexion/inversion WFL. Left Lower Extremity: Hip flexion WFL. Hip abduction WFL. Hip ER/IR WFL. Knee flexion 30 to 90 degrees. Knee extension -30 degrees. Ankle dorsiflexion to neutral only. Ankle plantarflexion WFL. Strength: Right Upper Extremity: Shoulder flexors 4-/5. Shoulder abductors 4-/5. Elbow flexors 4-/5. Elbow extensors 4-/5. B2B Outside Sales Representative strong. Left Upper Extremity: Shoulder flexors 4-/5. Shoulder abductors 4-/5. Elbow flexors 4-/5. Elbow extensors 4-/5. B2B Outside Sales Representative strong. Right Lower Extremity: Hip flexors 4-/5. Hip abductors 4-/5. Knee flexors 3-/5. Knee extensors 3-/5. Ankle dorsiflexors 3-/5. Ankle plantarflexors 4-/5. Left Lower Extremity: Hip flexors 4-/5. Hip abductors 4-/5. Knee flexors 3-/5. Knee extensors 3-/5. Ankle dorsiflexors 3-/5. Ankle plantarflexors 4-/5. Sensation: Intact as to pain and light pressure in bilateral lower extremities Bed Mobility/Transfers: Supine to sit contact-guard HOB at 30 degrees Sit to stand contact-guard assist Stand to sit contact-guard assist Bed to chair contact-guard assist Chair to bed contact-guard assist Gait: Distance of 12 feet requiring contact-guard assist. Anna decreased decreased. Step height . Step length decreased. Balance: Static Sitting: Normal Dynamic Sitting: Normal Static Standing: Fair Dynamic Standing: Fair Special Tests: Mobility Limitations Standardized Measure [facility] AM-PAC 6 clicks Basic Mobility Inpatient Short Form: Raw Score: 18 CMS Score: 47 % deficit 4-Stage Balance test: Unable to do 4 positions indicating high risk for falls at this time. Informed Consent/Education: Patient instructed in purpose of PT consult and plan of care. Agreeable to proceed with established PT POC to achieve personal goals. Assessment: Hope requires the use of a front-wheeled walker for all mobility ADL performance and s contact-guard assist PT at time of evaluation. She is in no need of any equipment as she has them all at home. Patient presents with clinical signs and symptoms consistent with current/admitting diagnoses that have resulted to mobility limitations, gait instability, generalized weakness, and impairment of motor control as demonstrated by the following impairment level findings: 1. Decreased strength to B LE major muscle groups 2. Impaired standing balance 3. Impaired activity tolerance 4. Skin breakdown to sacral area and left anterior distal leg 5. Mild confusion Impairments are contributing to the following functional limitations: 1. Inability to safely ambulate without assistive device and physical assistance 2. Increase completion time for mobility ADL performance 3. Increased risk for falls Patient is assessed as a 57482 moderate complexity based on the following: History: 71 [id number] with past medical history as indicated above Examination: Demonstrable impairment in strength, balance, and mobility level with underlying impairments and functional limitations as exhibited above as well as deficit score of 47% utilizing the [facility] Mobility Inpatient Short Form Presentation: Evolving Decision Makin moderate complexity Goals: Goals X1 week 1. Supine-Sit independent 2. Sit-Supine independent 3. Sit-Stand independent 4. Stand-Sit independent 5. Bed-Chair independent 6. Chair-Bed independent 7. Independent gait on level surface with use of least restrictive device for at least 300 feet without report of pain nor dyspnea 8. Independent stair negotiation while holding onto bilateral rails for at least 10 steps without report of pain nor dyspnea 9. Independent with home exercise program 10. Good static and dynamic standing balance/tolerance Plan of Care/Treatment Plan: 1-2x/day, 7 days/week x 1 week. Plan of care has been reviewed with the THERMAL INTELLIGENCE ANALYST providing the service under Physical Therapy direction. Initiate Physical Therapy intervention for pain management as needed, strengthening, bed mobility, transfers, gait, stairs, balance training, and use of assistive device. DISCHARGE RECOMMENDATIONS: [] Home with no services [] [X] Home with services. Patient will benefit from home health PT services in order to progress mobility level using least restrictive assistive ambulatory device, assess home safety, identify additional equipment needs, and establish a functional maintenance program that will increase ability of patient to remain at home. [] Home with outpatient PT [] [] SNF for continued rehabilitation [] [] [facility] [] [] SNF versus LTC based on ability to participate and progress [] TREATMENT CODE/TIME: 02425 x 20 minutes, 74145 x 10 minutes beginning at 13:40 PM. Thank you for the opportunity to participate in the care of this patient. Sue Dejesus PT, DPT, CLT [facility] [place], [place]
--- NOTE | 2021-07-31 13:44 | NUR.NOTE ---
Urology called in regards to patients follow up appointment. Appointment is on Friday, September 03, 2021 Appointment card was made and put in patients chart to go with her when discharged. Nursing Note:
[2021-07-31 14:15] LABS: BUN 23 mg/dL (7-18); CREATININE 1.3 mg/dL (0.55-1.02); Calcium 8.6 mg/dL (8.5-10.1); Chloride 100 mmol/L (98-107); Estimated GFR 40.15 (mL/min/1.73m2); Glucose 355 mg/dL (74-106); Magnesium 2.1 mg/dL (1.8-2.4); Sodium 135 mmol/L (136-145)
[2021-07-31] MEDS: Insulin Glargine 300 UNITS/3 ML PEN 10 UNITS SC (14:34)
--- NOTE | 2021-07-31 14:39 | PHA.REVIEW ---
Pharmacy Admission Review - Admission Clinical Review (Last Updated 07/31/21 @ 02:21 by Amarilis May MD) Pyelonephritis (Acute) Sacral decubitus ulcer, stage II (Acute) Wound of right lower extremity (Acute) Hyponatremia (Acute) Discharge planning issues (Acute) DVT prophylaxis (Acute) Pyuria (Acute) Obstructive uropathy (Acute) Toxic metabolic encephalopathy (Acute) HHNC (hyperglycemic hyperosmolar nonketotic coma) (Acute) Hyperglycemia (Acute) Urinary tract infection (Acute) Altered mental status (Acute) Hypomagnesemia (Acute) Urinary retention (Acute 03/31/16) Hypomagnesemia (Acute) trazodone Adverse Reaction (Intermediate, Verified 06/13/21 00:49) NIGHTMARES Resuscitation Status Full Code Height 5 ft 2 in Weight 83 kg - Renal Dosing Renal Dosing: BUN 23 mg/dL (7-18) H 07/31/21 14:00 Creatinine 1.3 mg/dL (0.55-1.02) H 07/31/21 14:00 Medications needing adjustments: Reviewed List of meds needing interventions: eCrCl 45.5 ml/min using abw - Anticoagulation Anticoagulation: Hgb 12.0 g/dL (11.2-15.7) 07/31/21 05:20 Hct 38.2 % (36.0-46.0) 07/31/21 05:20 Plt Count 352 10^3/uL (130-400) 07/31/21 05:20 INR 1.1 (0.9-1.1) 07/30/21 23:34 Creatinine 1.3 mg/dL (0.55-1.02) H 07/31/21 14:00 DVT Prophylaxis: N/A Therapeutic Anticoagulation: Reviewed Medications: Rivaroxaban - Opiate Usage Evaluate Pain Scale/Pains Meds: N/A - Relevant Labs Sodium 135 mmol/L (136-145) L 07/31/21 14:00 Potassium 4.0 mmol/L (3.5-5.1) 07/31/21 14:00 Chloride 100 mmol/L (98-107) 07/31/21 14:00 Phosphorus 3.2 mg/dL (2.6-4.7) 07/31/21 10:10 Magnesium 2.1 mg/dL (1.8-2.4) 07/31/21 14:00 Electrolytes, C-Reactive P, ESR: Reviewed - DM Control DM Control: Glucose 355 mg/dL (74-106) H 07/31/21 14:00 Hemoglobin A1c 13.4 % (<5.7) H 07/31/21 05:20 Finger Stick Blood Glucose 371 Finger Stick Blood Glucose 371 Finger Stick Blood Glucose 371 Finger Stick Blood Glucose 287 Finger Stick Blood Glucose 287 Finger Stick Blood Glucose 265 Finger Stick Blood Glucose 265 Finger Stick Blood Glucose 316 Finger Stick Blood Glucose 316 Finger Stick Blood Glucose 290 Finger Stick Blood Glucose 290 Finger Stick Blood Glucose 370 Finger Stick Blood Glucose 370 Finger Stick Blood Glucose 370 Finger Stick Blood Glucose 314 Finger Stick Blood Glucose 314 Insulin Dosing: Reviewed (weaning insulin gtt, starting basal lantus and scheduled aspart with meals) - Heart Failure/AR Heart Failure/AR: Troponin I < 50 ng/L (<or=60) 07/31/21 02:20 NT-Pro-B Natriuret Pep 1990 pg/mL (<300) H 07/31/21 02:20 - BP Control BP Control: Blood Pressure [Left Arm] 108/56 Blood Pressure [Left Arm] 112/64 Blood Pressure 117/63 Blood Pressure 104/73 Blood Pressure 108/56 Blood Pressure 108/59 Blood Pressure 120/66 Blood Pressure 116/68 Blood Pressure 112/64 Blood Pressure 112/64 Blood Pressure 124/66 Blood Pressure 125/51 Blood Pressure 110/97 Blood Pressure 165/80 Blood Pressure 144/84 Blood Pressure 144/84 Blood Pressure 140/117 Blood Pressure 163/85 If elevated: Reviewed List meds needing interventions: home med list from [facility] lists only diltiazem 120mg ER capsule but pharmacy records reveal shes been filling BOTH 120 + 240 within days of eachother for the past 9 months... - Qtc Review If Elevated: Reviewed - IV to PO Switch IV Medications: Reviewed - Home Meds Home Med List reviewed: Intervened Relevent Home Meds Not ordered & why?: Reviewed med list from [facility] and updated accordingly; she has several active meds that she should be well past due for according to her pharmacy record: lantus (last filled 02/09 x75 days), humalog (LF 03/06 x90 days), jardiance (LF 05/24 x30 days), metformin (LF 03/21 x90 days), atorvastatin (LF 03/05 x 90 days), I will mention this to the care mgmt team in the AM and will hopefully address any medication barriers she may be facing prior to discharge - Current meds Current Medication Order Review: Reviewed (Aura started this AM at 3.375G Q6H)
[2021-07-31] MEDS: Insulin Aspart 300 UNITS/3 ML PEN 10 UNITS SC (15:39)
[2021-07-31] MEDS: Insulin Aspart 300 UNITS/3 ML PEN 15 UNITS SC (16:29)
[2021-07-31 17:58] LABS: Glucose 360 mg/dL (74-106)
[2021-07-31] MEDS: Atorvastatin 20 MG TAB PO (19:37)
[2021-07-31] MEDS: Normal Saline 500 ML 250 ML IV (19:38)
[2021-08-01] VITALS (50 sets, daily range): BP systolic 82–129; BP diastolic 47–101; PULSE 61–111; RESP 9–25; TEMP 36.2–37.1; O2SAT 87–99
[2021-08-01] MEDS: PIPERACILLIN/TAZO 3.375 GM in Normal Saline 50 ML IVPB ×4 (03:23→22:28)
[2021-08-01 07:16] LABS: Anion Gap 7.9 mmol/L (3-11); BUN 25 mg/dL (7-18); CO2 27.1 mmol/L (21.0-32.0); CREATININE 1.2 mg/dL (0.55-1.02); Calcium 8.5 mg/dL (8.5-10.1); Chloride 102 mmol/L (98-107); Estimated GFR 44.04 (mL/min/1.73m2); Glucose 256 mg/dL (74-106); Magnesium 1.8 mg/dL (1.8-2.4); Sodium 137 mmol/L (136-145)
[2021-08-01] MEDS: Rivaroxaban 15 MG TABLET PO (08:25)
[2021-08-01] MEDS: Magnesium Oxide 400 MG TAB PO (08:25)
[2021-08-01] MEDS: dilTIAZem CD 120 MG CAPCR 240 MG PO (08:25)
[2021-08-01] MEDS: Aspirin E.C. 81 MG TABEC PO (08:25)
[2021-08-01] MEDS: Calcium 600mg/Vit D 200U TAB 1 TAB PO ×2 (08:26→19:56)
[2021-08-01] MEDS: Metoprolol CR 100 MG TABCR PO (08:26)
[2021-08-01] MEDS: Insulin Glargine 300 UNITS/3 ML PEN 30 UNITS SC (08:26)
[2021-08-01] MEDS: Insulin Aspart 300 UNITS/3 ML PEN SC ×2 (08:28→12:17)
[2021-08-01] MEDS: Insulin Aspart 300 UNITS/3 ML PEN 20 UNITS SC ×3 (08:30→17:06)
--- NOTE | 2021-08-01 09:52 | PDOC.CMPRO ---
- If Service Date Differs Date of service: 08/01/21 Time of Service: 16:10 Care Management Progress Note S/O: Hope is more alert and oriented today, she will meet with Ellen of Palliative Care to discuss goals of care. Hope was lying in bed when CM met with her, she reported not being willing to discharge to SNF if recommended upon discharge. She reviewed previous stays and shared confidence that she could recover better at home. She was pleasant in interaction and fully engaged with the headline writer. She continues to be followed by wound care and to work with PT. CM continues to follow. A: 71 year old admitted to [facility] on 07/31/21 for HHNK, Toxic Metabolic Encephalopathy, Obstructive P: Anticipate Hope will return home when medically cleared with a resumption of community supports including SASH, RCT, [facility] Mod, and [facility] urology for catheter changes. She will be driven home via private vehicle RCT, coordinated by RONNIE. She will follow up with her PCP and discharge plan of care. CM will continue to support Hope and her discharge needs.
--- NOTE | 2021-08-01 10:31 | W.PALLCONSUL ---
Date of service: 08/01/21 Time of Service: 10:30 History of Present Illness Narrative: Ms. Arnett is a 71 y/o new to [facility] pt currently inpatient at [facility] ICU unit 2/2 toxic metabolic encephalopathy; PMHx include IDDM2, a fib, CHF w/EF 50-55% on 2019 echo, HTN, urinary retention w/suprapubic cath Pt presented to ER 2/8 w/altered MS, found to have BS of 882; suprapubic catheter clamped; rapid A fib and wounds; on IVF and insulin infusion, BS improving; CT abd found possible 4mm obstructing calculus w/bilateral hydronephrosis and hydroureters, L >R, [facility] consulted: d/t no sepsis can address more urgent things first, f/u w/urology, if deteriorates consider nephrostomy tube but not consider emergent; empirically being treated for UTI w/ceftriaxone; rapid A fib improved w/tx above; wound care consulted RLE lower leg stasis ulcer, lumbar/sacral 3 stage II pressure ulcers; goal to transition from ICU to med surg as was cleared from toxic metabolic encephalopathy this morning; overall pt is doing much better throughout hospital course, consult placed for code status and goals of care, specifically discharge care needs: SNF vs home on Pt aware that ?I was looney? on admission to hospital, was unsure of cause, thinking it could be low BS d/t h/o low BS and feeling similar, reports ?does alright? w/insulins at home, not interested in checking BS, would prefer to call and present to hospital in the setting of feeling unwell; Reports has suprapubic catheter changed 1x/mo at [facility], denies concerns w/resuming these visits, able to present to hospital w/RCT or bus; reports wounds 2/2 bed bugs in apartment, have been appropriately treated, but sores remain, agreeable to wound care assistance; Pt reports [facility], iADLs at baseline; pt is adamant to not return to SNF, has had 2 previous experiences, ?I want no part of it?; agreeable to RN, PT/OT, SW, is currently f/b CM Zoey Noyola w/ [facility], has MONSERRAT RN coming in 1x/mo, [facility] moderate needs, MOW and help w/laundry and some chores; reports feels safe returning home, w/services; Pts biggest concern is cecelia Echo at home, needs to be fed in 1-2 days; 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 who could be helpful in working w/landlord to improve living conditions; pt reports ?I don?t want to ? however would like to be DNR/I today, COLST and HCA completed: Katharina Busby [phone] Assessment and Plan Assessment and plan (1) Poorly controlled diabetes mellitus: Status: Chronic Assessment and plan: BS improving, continue to monitor, recommend f/u w/PCP, HH RN for assistance w/medications (2) Hyperglycemia: Status: Acute (3) Sacral decubitus ulcer, stage II: Status: Acute Assessment and plan: f/b wound care, HH RN for wound care f/u on discharge (4) Wound of right lower extremity: Status: Acute (5) Urinary retention: Status: Acute Assessment and plan: suprapubic catheter in place, continue q1mo changes at [facility] (6) Atrial fibrillation and flutter: Status: Chronic Assessment and plan: improved (7) Palliative care encounter: Status: Acute Assessment and plan: continue to follow, home visit 1-2 wks upon discharge home (8) Need for home health care: Status: Acute Assessment and plan: recommend [facility], PT, OT, SW, RN; continue SASH, RCT< CFC, MOW (9) Decreased activities of daily living (ADL): Status: Acute Assessment and plan: need for HH on discharge continue to follow; called janis Posadas in visit, agrees to care plan, will visit pt tomorrow and check in on cecelia Blackmon at [facility] to assist w/heating complaints, Zoey Noyola w/[place] [facility] following for additional assistance HCA and COLST completed, DNR/I Review of Systems Narrative: Const?All systems are reviewed & are unremarkable except as noted in HPI and below? PFSH All Active Problems (Updated 08/03/21 @ 10:51 by Ellen Prince NP) Decreased activities of daily living (ADL) (Acute) Need for home health care (Acute) Palliative care encounter (Acute) Nephrolithiasis (Chronic) Sacral decubitus ulcer, stage II (Acute) Wound of right lower extremity (Acute) Hyperglycemia (Acute) Trochanteric bursitis, right hip (Acute) Right ankle sprain (Acute) Hip pain, right (Acute) GI bleed (Acute) Fracture, lumbar vertebra, compression (Acute) Multiple rib fractures involving four or more ribs (Acute) PSVT (paroxysmal supraventricular tachycardia) (Acute) Urinary retention (Acute 03/31/16) Poorly controlled diabetes mellitus (Chronic) Transient neurologic deficit (Acute) Fungal dermatitis (Acute) Atrial flutter (Acute) Vaginal bleeding, abnormal (Acute) Atrial fibrillation and flutter (Chronic) Diabetes mellitus type 2 in obese (Acute) Fracture of femoral neck, right (Acute) Retention, urine (Acute) Medical History Atrial fibrillation Cataracts, bilateral CHF (congestive heart failure) LVEF 50-55%, diastolic dysfunction Diabetes Hyperlipidemia Hypertension Pulmonary hypertension S/P right hip fracture TIA (transient ischemic attack) Surgical History History of suprapubic catheter Status post right hip replacement Family History Other Diabetes Heart disease Hyperlipidemia Hypertension Stroke Social History Smoking/Tobacco Use Status: Former Tobacco Use Smoking risk assessment performed?: Yes Alcohol Intake: never Drug use: Never Substance use type: does not use Household members: none Do you feel safe at home: Yes Do you feel safe in your relationship?: Yes Additional Social history: Lives alone. [address] Does not drive. Exam Narrative Exam Narrative: Const?Other: pt walking w/PT w/walker on first arrival in ICU, sitting comfortably in chair on return?Resp?Effort & Inspection: normal respiratory effort, able to speak in complete sentences, no audible wheezes and no cough??Other: pale yellow urine noted in catheter?Skin?Other: wound care following, wounds not visualized today?HENMT?Head: normal to inspection, normocephalic and atraumatic?Ears: hearing grossly normal bilaterally?Psych?Speech and Movement: speech clear?Thought Process: normal?Insight: fair?Judgment: fair?Other: struggles w/use of phone w/causes short bursts of frustration, able to calm self Affect: normal affect?Const?General: cooperative, comfortable and no acute distress?Orientation: alert, awake, oriented to time and other (required reinorientation to [facility])? Results Last Vital Signs Temp 97.5 F L 08/02/21 07:37 Pulse 83 08/02/21 07:37 Resp 14 08/02/21 07:37 BP 117/71 08/02/21 07:37 Pulse Ox 97 08/02/21 07:37 Labs Result diagrams: 07/31/21 05:20 08/01/21 06:10
[2021-08-01] MEDS: Normal Saline Flush 10 ML SYR IVP ×2 (11:40→22:29)
--- NOTE | 2021-08-01 12:14 | W.INDIABCONS ---
Date of service: 08/01/21 Time of Service: 12:15 Diabetes Inpatient Consult Reason for Visit: Diabetes Management Consult DESCRIPTION/ASSESSMENT: Ms. Busby was admitted with NK. Blood sugars are improving but not yet at target. She also has a stage II sacral decubitus ulcer so of course tight blood sugar control is extremely important. Weight has been stable over the years. She has lost 9 kg on this admission likely r/t diuresis with HHNK. Her BMI is 33.5 kg/m2 which is c/w class 1 (mild) obesity. PO intake has been good. Ms. Busby is getting 30 units of Glargine at HS. 20 units Aspart with meals as well as a correction scale with Aspart. A1C on admission was 13.4 indicating poor glycemic control. Her A1C two years ago was 7.9 and has increased consistently each time. I am not sure if Ms. Busby was taking her Glargine at home as well as her 12 units of lispro with meals. I will talk about home with her when she is feeling better. INTERVENTION: Will check in with Ms. Busby when she is feeling better to review her home regimen as well as her DSMES needs. If in fact she had been taking the Glargine and the Lispro consistently, she will need to titrate up her dosing of those at home which I can help her with. If her home regimen has been too intensive for her to manage, perhaps she could be better served by a 70/30 twice a day for more simplicity. PLAN: Will continue to monitor her progress. Will follow up with her as she is feeling better to assess her DSMES needs. Will evaluate nutrition and diabetes care plan ongoing and adjust as needed. Time Spent in Nutritional Counseling and Treatment: 0
--- NOTE | 2021-08-01 12:44 | PGE_ITS ---
Date of Service Date of service: 08/01/21 Time of Service: 12:44 Assessment and Plan Assessment and plan (1) HHNC (hyperglycemic hyperosmolar nonketotic coma): Status: Acute Assessment and plan: Now on basal/bolus insulin; adjusting dosage Diabetic diet. She endorses not using her insulin for appx 2 weeks. Pharmacy states she hasn't refilled Glargine insulin since Feb. A1c 13.4 (2) Toxic metabolic encephalopathy: Status: Acute Assessment and plan: In the setting of HHNC Resolved. (3) Obstructive uropathy: Status: Acute Assessment and plan: in setting of a clamped suprapubic catheter. There does seem to also be a 4 mm stone causing ureteral obstruction on the R. She tells me she has had left sided symptoms. [facility] at [facility] felt that the patient did not require immediate intervention since there were no clear signs of infection/sepsis. KATHLEEN Owen changed the catheter. Continue empiric ceftriaxone. (4) Atrial fibrillation: Assessment and plan: Rate now in the 90 to low 100's range. Continue home diltiazem and metoprolol. Prn IV metoprolol. Continue home xarelto. Qualifiers: Atrial fibrillation type: persistent (not longstanding) Qualified Co de(s): I48.19 - Other persistent atrial fibrillation (5) Wound of right lower extremity: Status: Acute Assessment and plan: wound care appreciated. (6) Sacral decubitus ulcer, stage II: Status: Acute Assessment and plan: Wound care appreciated. (7) Poorly controlled type 2 diabetes mellitus: Status: Chronic Assessment and plan: See [facility] timber hand consulted. (8) Hyponatremia: Status: Acute Assessment and plan: Component of pseudohyponatremia. Now normalized. (9) Hypomagnesemia: Status: Acute Assessment and plan: Repleted; now 2.2. (10) Hyperkalemia: Status: Resolved Assessment and plan: Resolved with IV hydration. Repeat potassium is 5.0 > 4.0. May require repletion as we continue to treat hyperglycemia. (11) DVT prophylaxis: Status: Acute Assessment and plan: Continue home xarelto (12) Discharge planning issues: Status: Acute Assessment and plan: Full code Admit to ICU. Consult palliative care. Consult physical therapy. (13) Urinary tract infection: Status: Acute Assessment and plan: Culture growing E.Coli / pansensitive Does not appear to be pyelonephritis Cont Rocephin Subjective Subjective Patient reports: no new complaints, feels better, tolerating a regular diet and afebrile; denies nausea, vomiting or shortness of breath Interval history since last seen: She descrbes that she had been experiencing intermittent L flank pain into the groin. No pain today. Exam Const General: no acute distress Nutritional Appearance: obese Orientation: alert and oriented x3 Eyes General: appearance normal, both eyes and all related structures Sclera: sclerae normal Resp Effort & Inspection: normal respiratory effort Auscultation: clear to auscultation bilaterally Cardio Rate: regular rate Rhythm: regular rhythm Heart Sounds: S1 normal and S2 normal GI Inspection: other (suprapubic catheter in place) Palpation: soft and nontender Skin Rashes: no rashes Neuro General: moves all extremities Speech: speech normal Extrem General: no pedal edema and no calf tenderness Psych Appearance: grossly normal Affect: blunted Objective Last Vital Signs Temp 36.8 C 08/01/21 08:00 Pulse 98 H 08/01/21 12:00 Resp 20 08/01/21 12:01 BP 99/62 L 08/01/21 12:00 Pulse Ox 98 08/01/21 12:01 Laboratory Results - last 24 hr 07/31/21 07/31/21 07/31/21 12:30 14:00 17:25 Sodium 134 L 135 L Potassium 4.0 4.0 Chloride 101 100 Carbon Dioxide 27.5 26.0 Anion Gap 5.5 9.0 BUN 23 H 23 H Creatinine 1.1 H 1.3 H Estimated GFR/1.73 m2 48.69 40.15 Glucose 297 H 355 H 360 H Calcium 8.9 8.6 Magnesium 2.1 08/01/21 06:10 Sodium 137 Potassium 4.0 Chloride 102 Carbon Dioxide 27.1 Anion Gap 7.9 BUN 25 H Creatinine 1.2 H Estimated GFR/1.73 m2 44.04 Glucose 256 H D Calcium 8.5 Magnesium 1.8
--- NOTE | 2021-08-01 15:38 | PTTR_ITS ---
Date of service: 08/01/21 Time of Service: 15:38 PT Notes Visit Reasons: HHNK,Toxic Metabolic Encephalopathy,Obstructive Physical Therapy Inpatient Treatment Note Date: 08/01/2021 Precautions: Fall. Standard. Activity as tolerated. Subjective: Agreeable to PT session.? Denies wooziness but complained of being queasy in the stomach which disappeared when she had a bowel movement later in the morning. Denies headache and chest pain throughout session. Objective: General Observation: Supine in bed.? Telemetry monitoring in place.? Wound dressing to skin breakdown in sacral area and left distal third of anterior leg Mental Status: Alert but disoriented as to place and time.? Able to follow single step commands. Pain: 0/10 Vital Signs: WFL as closely monitored by telemetry Bed Mobility/Transfers: Supine to sit stand by assist with HOB at 30 degrees Sit to stand stand by assist Stand to sit stand by assist Bed to chair stand by assist Chair to bed stand by assist Gait: Distance of 120 feet in the morning and 200 feet + 75 feet in the afternoon requiring stand by assist. Anna increasing. Step height increasing. Mild SOB. Balance: Static Sitting: Normal Dynamic Sitting: Normal Static Standing: Fair Dynamic Standing: Fair Assessment: Confusion subsiding. Per Nurse, BP has been softening at least 2-3x today. Hope exhibits increasing activity tolerance for mobility ADL performance and exercise participation. requires the use of a front-wheeled walker for all mobility ADL performance with contact-guard assist She is in no need of any equipment as she has them all at home. DISCHARGE RECOMMENDATIONS: [] ? Home with no services [] [X] ? Home with services.? Patient will benefit from home health PT services in order to progress mobility level using least restrictive assistive ambulatory device, assess home safety, identify additional equipment needs, and establish a functional maintenance program that will increase ability of patient to remain at home. [] ? Home with outpatient PT [] [] ? SNF for continued rehabilitation [] [] ? [facility] [] [] ? SNF versus LTC based on ability to participate and progress [] TREATMENT CODE/TIME: Session 1--96574 x 15 minutes, 35714 x 13 minutes beginning at 10:08 AM. Session 2--[id number] x 23 minutes beginning at 15:38 PM.
[2021-08-01] MEDS: Atorvastatin 20 MG TAB PO (19:56)
--- NOTE | 2021-08-01 23:52 | NUR.NOTE ---
pt was wheeled into the unit with a wheelchair by the nurse at about 2114. she was alert and oriented with no obvious distress. suprapubic catheter insitu draining clear yellow urine. wound covered with mepilex on the right chin. she was made comfortable and tuck in the room
[2021-08-02] MEDS: Normal Saline Flush 10 ML SYR IVP (03:54)
[2021-08-02] MEDS: PIPERACILLIN/TAZO 3.375 GM in Normal Saline 50 ML IVPB (03:54)
[2021-08-02 07:37] VITALS: BP 117/71; PULSE 83; RESP 14; TEMP 36.4; O2SAT 97
[2021-08-02] MEDS: Insulin Aspart 300 UNITS/3 ML PEN 20 UNITS SC ×2 (09:00→14:16)
[2021-08-02] MEDS: Calcium 600mg/Vit D 200U TAB 1 TAB PO (09:52)
[2021-08-02] MEDS: Omeprazole 20 MG CAPCR PO (09:52)
[2021-08-02] MEDS: dilTIAZem CD 120 MG CAPCR 240 MG PO (09:52)
[2021-08-02] MEDS: Magnesium Oxide 400 MG TAB PO (09:52)
[2021-08-02] MEDS: Aspirin E.C. 81 MG TABEC PO (09:53)
[2021-08-02] MEDS: Metoprolol CR 100 MG TABCR PO (09:53)
[2021-08-02] MEDS: Rivaroxaban 15 MG TABLET PO (09:53)
--- NOTE | 2021-08-02 10:03 | W.PM.DS.N ---
Date of service: 08/02/21 Time of Service: 10:04 DS: Diagnosis Discharge Diagnosis (1) HHNC (hyperglycemic hyperosmolar nonketotic coma): Status: Acute (2) Toxic metabolic encephalopathy: Status: Acute (3) Obstructive uropathy: Status: Acute (4) Atrial fibrillation: (5) Wound of right lower extremity: Status: Acute (6) Sacral decubitus ulcer, stage II: Status: Acute (7) Poorly controlled type 2 diabetes mellitus: Status: Chronic (8) Hyponatremia: Status: Acute (9) Hypomagnesemia: Status: Acute (10) Hyperkalemia: Status: Resolved (11) DVT prophylaxis: Status: Acute (12) Discharge planning issues: Status: Acute (13) Urinary tract infection: Status: Acute Discharge Plan Disposition Patient Disposition: HOME W/HOME HEALTH SERVICE Condition: Fair Discharge Details Reason For Visit: HHNK,Toxic Metabolic Encephalopathy,Obstructive Admit Date/Time: 07/31/21 01:52 Admit Provider: Amarilis May Attending Provider: Amarilis May Primary Care Provider: Dean Camilo Hospital Course Hospital Course: Ms Busby is a 71 year old female with PMHx of IDDM2, Afib on xarelto, 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 Per EMS, the patient was confused and had a BG of 500. On arrival to the ED, she was unable to provide any history, but moved all 4 extremities. Her blood sugar was actually 882. Her suprapubic catheter had been clamped - unclear for how long - and, when unclamped, drained [address] head w/o contrast was negative. CT abdomen/pelvis revealed a possible 4 mm obstructing calculus in the distal right ureter, bilateral hydronephrosis and hydroureters, worse on the left, due to bladder distention and the obstructing calculus on the R, and nonspecific perinephric stranding. The patient's case was discussed with [facility] urology who felt that, since the patient does not have evidence of sepsis, given her overall medical picture, she would need to have those concerns addressed first. If she deteriorates, a nephrostomy tube could be considered, but it was not felt to be emergently necessary. As far as sepsis, she does not have a fever, a white count, and her UA is positive for trace leucocyte esterase - collected on the urine from the home suprapubic catheter. She was empirically treated for a UTI. She was initiated on IVF and insulin infusion. She is in rapid Afib, and her HR has improved from 140s to 110s just with above interventions. Hospitalist admission to the ICU was requested. At the time of hospitalists initial exam the patient was asleep, arousable briefly, but immediately falls back asleep. She did not provide any history. Glargine insulin initiated. Glucose improved and insulin drip stopped. Basal/bolus insulin continued. She endorsed not taking her insulin for several weeks. outreach educator consulted. Urology consulted and her suprapubic catheter was changed. Urine culture grew E.Coli; pansensitive. She had been empirically started on Zosyn and it was felt she had adequate treatment during the course of the hospitalization. She will continue her home dosing of basal/bolus insulin. Home Health nursing and PT F/U with PCP in 1-2 weeks. Cont routine f/u with urology for suprapubic catheter changes. Home Meds and New Rx's Prescriptions: Continued nystatin 100,000 unit/gram powder 1 applic Topical BID PRN (Reason: itching) Qty: 60 11RF Rx Instructions: Apply to abdominal fold and under breasts. (DME) Depend Underwear For Women S-M Misc 1 ea Miscellaneous TID Qty: 100 12RF Rx Instructions: DEPEND PULL UP FOR WOMEN SIZE LARGE insulin lispro [Humalog KwikPen Insulin] 100 unit/mL insulin pen 12 unit SUBCUT QMEALS 0RF Label Comments: INJECT 12 UNITS SUBCUTANEOUSLY DIRECTED WITH MEALS lisinopril 10 mg Tablet 10 mg PO DAILY 0RF aspirin 81 mg Tablet,Delayed Release (Dr/Ec) 81 mg PO DAILY 0RF Lantus Solostar U-100 Insulin 100 unit/mL (3 mL) Insulin Pen 20 unit subcut HS Qty: 15 1RF metoprolol succinate 100 mg tablet extended release 24 hr 100 mg PO DAILY Qty: 0 0RF Xarelto 15 mg Tablet 15 mg PO DAILY 0RF atorvastatin 20 mg Tablet 20 mg PO HS Qty: 30 0RF magnesium oxide [MagOx] 400 MG tablet 400 mg PO DAILY Qty: 30 0RF omeprazole 20 MG capsule,delayed release(DR/EC) 20 mg PO DAILY Qty: 30 0RF furosemide 20 mg tablet 20 mg PO DAILY Qty: 30 0RF calcitonin (salmon) 200 unit/actuation [place],Non-Aerosol 0 ml NS DAILY Qty: 30 0RF Rx Instructions: active on PCPs med list but no recent fill history per pharmacy record -Pharm 08/01/21 Changed metformin 1,000 mg tablet 1,000 mg PO BID Qty: 60 0RF diltiazem HCl 120 mg capsule,extended release 24hr 240 mg PO QAM Qty: 60 0RF Discontinued metronidazole 1 % gel 1 applic topical DAILY 0RF Label Comments: APPLY A THIN LAYER TOFACE ONCE DAILY UNTIL RASH RESOLVES No Action calcium carbonate-vitamin D3 [Calcium 600 + D(3)] 600 mg(1,500mg) -200 unit Tablet 1 tab PO BID Qty: 60 0RF Discharge Instructions Instructions: Encephalopathy (DC) Stand Alone Forms: Nursing Discharge Form Referrals: Dean Camilo [Primary Care Provider] - 08/07/21 9:15 am Activity:: Activity as Tolerated Equipment/Supplies:: No Equipment Needed Diet:: diabetic diet Discharge Orders Discharge Orders: Discharge Order (Routine); Ordered 08/02/21 Ordered By: Bebeto Ruggiero Discharge Data Discharge Date/Time-TO BE ENTERED AT DEPARTURE: 08/02/21 14:22 DS: Summary Time Spent with Patient providing and/or coordinating discharge services: Greater than 30 minutes Status at Discharge Functional status at discharge: independent ambulation Overall status at discharge: patient is progressing back to baseline Mental Status: mental status grossly normal Speech and Movement: speech and movement normal Mood: congruent mood Affect: normal affect Exam Const General: no acute distress Nutritional Appearance: obese Orientation: alert, awake (arouses with verbal commands) and oriented x3 Eyes General: appearance normal, both eyes and all related structures Sclera: sclerae normal Resp Effort & Inspection: normal respiratory effort Auscultation: clear to auscultation bilaterally Cardio Rate: regular rate Rhythm: regular rhythm Heart Sounds: S1 normal and S2 normal GI Inspection: other (suprapubic catheter in place) Palpation: soft and nontender Skin Rashes: no rashes Neuro General: moves all extremities Speech: speech normal Extrem General: no pedal edema and no calf tenderness Psych Appearance: grossly normal Mental Status: mental status grossly normal Speech and Movement: speech and movement normal Mood: congruent mood Affect: normal affect DS: Data Vitals/I&O Vitals and I&O: Vital Signs Temperature 36.4 C L 08/02/21 07:37 Temperature Source Tympanic 08/02/21 07:37 Pulse 83 08/02/21 07:37 Pulse Rhythm Irregular 08/02/21 00:07 Pulse 85 08/01/21 18:00 Respiratory Rate 14 08/02/21 07:37 Respiratory Effort 08/02/21 00:07 Respiratory Depth Normal 08/02/21 00:07 Respiratory Pattern Normal 08/02/21 00:07 Blood Pressure 117/71 08/02/21 07:37 Blood Pressure Mean 61 08/01/21 19:52 Blood Pressure Position Sitting 08/01/21 13:18 Pulse Oximetry 97 08/02/21 07:37 Oxygen Delivery Method Room Air 08/02/21 07:37 Oxygen Flow Rate 0 08/02/21 07:37 Pain Level 2 08/02/21 07:37 Comment 08/01/21 23:35 Intake & Output 08/01/21 08/01/21 08/02/21 11:59 23:59 11:59 Intake Total 860 / 1730 870 / 1730 50 / 50 Output Total 175 / 425 250 / 425 2049 Balance 685 / 1305 620 / 1305 -1999 / Intake: IV 600 / 750 150 / 750 50 / 50 Oral 260 / 980 720 / 980 Output: Urine 175 / 425 250 / 425 2049 Other: Urine Color Yellow Yellow Yellow Urine Appearance Clear Clear Clear Urine Odor Normal None Comment suprapubic cath in place and patent. suprapubic cath in place and patent. Stool Occult Blood Negative Stool Size Large Moderate Stool Characteristics Formed Soft Verduzco Formed Brown Data Completed and Pending Labs on day of discharge: Preliminary micro results at discharge 07/31/21 03:00 Blood Culture - Preliminary Blood NO GROWTH 48 HOURS 07/31/21 02:20 Blood Culture - Preliminary Blood NO GROWTH 48 HOURS PFSH All Active Problems Nephrolithiasis (Chronic) Pyelonephritis (Acute) Sacral decubitus ulcer, stage II (Acute) Wound of right lower extremity (Acute) Hyponatremia (Acute) Discharge planning issues (Acute) DVT prophylaxis (Acute) Pyuria (Acute) Obstructive uropathy (Acute) Toxic metabolic encephalopathy (Acute) HHNC (hyperglycemic hyperosmolar nonketotic coma) (Acute) Hyperglycemia (Acute) Urinary tract infection (Acute) Altered mental status (Acute) Trochanteric bursitis, right hip (Acute) Right ankle sprain (Acute) Hip pain, right (Acute) GI bleed (Acute) Fracture, lumbar vertebra, compression (Acute) Multiple rib fractures involving four or more ribs (Acute) Hypomagnesemia (Acute) PSVT (paroxysmal supraventricular tachycardia) (Acute) Urinary retention (Acute 03/31/16) Poorly controlled diabetes mellitus (Chronic) Transient neurologic deficit (Acute) Fungal dermatitis (Acute) Atrial flutter (Acute) Vaginal bleeding, abnormal (Acute) Atrial fibrillation and flutter (Chronic) Poorly controlled type 2 diabetes mellitus (Chronic) Hypomagnesemia (Acute) Diabetes mellitus type 2 in obese (Acute) Fracture of femoral neck, right (Acute) Retention, urine (Acute) Medical History Atrial fibrillation Cataracts, bilateral CHF (congestive heart failure) LVEF 50-55%, diastolic dysfunction Diabetes Hyperlipidemia Hypertension Pulmonary hypertension S/P right hip fracture TIA (transient ischemic attack) Surgical History History of suprapubic catheter Status post right hip replacement Family History Other Diabetes Heart disease Hyperlipidemia Hypertension Stroke Social History Smoking/Tobacco Use Status: Former Tobacco Use Smoking risk assessment performed?: Yes Alcohol Intake: never Drug use: Never Substance use type: does not use Household members: none Do you feel safe at home: Yes Do you feel safe in your relationship?: Yes Additional Social history: Lives alone. [address] Does not [address].
[2021-08-02] MEDS: Insulin Aspart 300 UNITS/3 ML PEN SC ×2 (10:51→14:16)
--- NOTE | 2021-08-02 10:52 | PDOC.HHF2F_ITS ---
Home Health Certification Home Health Certification: 1. Encounter Date and Reason I certify that Hope Busby was seen by Bebeto Ruggiero MD on 08/02/21 and that I had a [id number] encounter with this patient that meets the physician face to face encounter requirements. 2. Clinical Findings Supporting Skilled Need and Homebound Status I certify that home health services are medically necessary, include either intermittent [place] [facility] and/or physical/speech therapy, and that this patient is homebound in that absences from the home require considerable and taxing effort and are infrequent or of short duration, or are attributable to the need to receive medical care. [X] (a) Attached documentation from encounter provides clinical findings supporting skilled need and homebound status (including what assistance patient requires to leave the home). The encounter with the patient was in whole, or in part, for the following medical condition, which is the primary reason for home health care: HHNK,Toxic Metabolic Encephalopathy,Obstructive Alf: Monitor compliance with medications, blood glucose control, wound on padilla. Physical Therapy:Evaluate for generalized weakness d/t recent illness and hospitalization. Implement therapy. Speech Therapy: Homebound: Requires another person to assist in safe ambulation outside of the home. 3. Certification and Authentication I certify that I composed the above information based on my clinical judgement relating to this patient's medical condition and, if applicable, clinical findings communicated to me by the NPP or inpatient physician who performed the Home Health Referral. All further orders will be obtained through Dean Camilo (Community Based Physician - PCP)
--- NOTE | 2021-08-02 14:51 | CHAPLAIN ---
Hope was sitting up in the chair watching tv when I visited. We remembered meeting each other some where before, she thought it was at the [facility], for an event there. Hope told me that bedbugs has been found in her apartment building and she'd reacted to what was used to kill them. Hope was very pleasant and we had a friendly conversation. I received a page while we were talking, and she was later discharged before I could return to see her again.
--- NOTE | 2021-08-02 16:43 | PDOC.CMDIS ---
- If Service Date Differs Date of service: 08/02/21 Time of Service: 16:43 LACE Index Scoring Tool - Questions: Length of Stay (in days): 2 Acuity (Admit via E.D.?): Yes Comorbidities: Diabetes w/o Complication, Congestive Heart Failure E.D. Visits: 1 - Answers: Total Score: 9 Risk of Readmission: Low Risk Care Management Discharge Reason for Hospitalization: Diabetes,Hyperglycemia Discharge Plan: Hope will return home when medically cleared with a resumption of community supports. She will be driven home via private vehicle RCT, coordinated by CM. She will follow up with her PCP and discharge plan of care. Patient/Family Education Needs: Review of discharge instructions, limitations, medications, follow up plan, Ask Me Three Services Needed at Discharge: Home Health Care Services (Resumption)
--- NOTE | 2021-08-05 08:09 | INDS_ITS ---
Date of service: 08/05/21 PT Notes Visit Reasons: HHNK,Toxic Metabolic Encephalopathy,Obstructive Physical Therapy Inpatient Initial Evaluation Date: 08/05/2021 Dates of Service: 07/31/2021 through 08/02/2021 This is a clinical summary of care provided for the duration of dates listed ab ove. No charge was made in the completion of this documentation. Referring Doctor: Amarilis May MD PT Orders: PT CONSULT: Limited ability Precautions: Fall. Standard. Activity as tolerated. Patient Profile/Admitting Diagnosis: Hope is a 71-year-old female who presented to the ED via EMS on 07/24/2021 with altered mental status and generalized weakness.? Patient is diagnosed with hyperglycemic hyperosmolar nonketotic coma, also metabolic encephalopathy, obstructive uropathy, pyuria, right lower extremity wound, stage II sacral decubitus, poorly controlled type is mellitus type II, hyponatremia,-hyperkalemia and atrial fibrillation. PMHX: All Active Problems?(Updated 07/31/21 @ 03:18 by Amarilis May MD) Sacral decubitus ulcer, stage II (Acute) Wound of right lower extremity (Acute) Hyponatremia (Acute) Discharge planning issues (Acute) DVT prophylaxis (Acute) Pyuria (Acute) Obstructive uropathy (Acute) Toxic metabolic encephalopathy (Acute) HHNC (hyperglycemic hyperosmolar nonketotic coma) (Acute) Hyperglycemia (Acute) Urinary tract infection (Acute) Altered mental status (Acute) Trochanteric bursitis, right hip (Acute) Right ankle sprain (Acute) Hip pain, right (Acute) GI bleed (Acute) Fracture, lumbar vertebra, compression (Acute) Multiple rib fractures involving four or more ribs (Acute) Hypomagnesemia (Acute) PSVT (paroxysmal supraventricular tachycardia) (Acute) Urinary retention (Acute 03/31/16) Poorly controlled diabetes mellitus (Chronic) Transient neurologic deficit (Acute) Fungal dermatitis (Acute) Atrial flutter (Acute) Vaginal bleeding, abnormal (Acute) Atrial fibrillation and flutter (Chronic) Poorly controlled type 2 diabetes mellitus (Chronic) Hypomagnesemia (Acute) Diabetes mellitus type 2 in obese (Acute) Fracture of femoral neck, right (Acute) Retention, urine (Acute) Medical History?(Updated 07/31/21 @ 03:18 by Amarilis May MD) Atrial fibrillation Cataracts, bilateral CHF (congestive heart failure) LVEF 50-55%, diastolic dysfunction Diabetes Hyperlipidemia Hypertension Pulmonary hypertension S/P right hip fracture TIA (transient ischemic attack) Surgical History? History of suprapubic catheter Status post right hip replacement Social History/Home Situation: Lives on the third floor of the [facility] apartment.? She has a ramp to enter and an elevator that leads to her apartment.? Transportation via [facility].? Modified independent using single-point ca ne prior to admission. Equipment Owned/DME: Standard walker, 4WW, FWW, SPC Subjective: NT. See most recent [employer] notes. Objective: General Observation: NT. See most recent [employer] notes. Mental Status: NT. See most recent [employer] notes. Pain: NT. See most recent [employer] notes. Vital Signs: NT. See most recent [employer] notes. ROM: Right Upper Extremity: ? Shoulder Flexion WFL. Shoulder abduction WFL. Shoulder ER/IR WFL. Elbow flexion WFL. Forearm pronation/supination WFL. Wrist flexion WFL. Opening and closing of hand WFL. Left Upper Extremity:? Shoulder Flexion WFL. Shoulder abduction WFL. Shoulder ER/IR WFL. Elbow flexion WFL. Forearm pronation/supination WFL. Wrist flexion WFL. Opening and closing of hand WFL. Right Lower Extremity: Hip flexion WFL. Hip abduction WFL. Hip ER/IR WFL. Knee flexion 10 to 90 degrees. Knee extension -10 degrees. Ankle dorsiflexion to neutral only. Ankle plantarflexion/inversion WFL. Left Lower Extremity: Hip flexion WFL. Hip abduction WFL. Hip ER/IR WFL. Knee flexion 30 to 90 degrees. Knee extension -30 degrees. Ankle dorsiflexion to neutral only. Ankle plantarflexion WFL. Strength: Right Upper Extremity: Shoulder flexors 4-/5. Shoulder abductors 4-/5. Elbow flexors 4-/5. Elbow extensors 4-/5. Broth Mixer strong. Left Upper Extremity: Shoulder flexors 4-/5. Shoulder abductors 4-/5. Elbow flexors 4-/5. Elbow extensors 4-/5. Broth Mixer strong. Right Lower Extremity: Hip flexors 4-/5. Hip abductors 4-/5. Knee flexors 3-/5. Knee extensors 3-/5. Ankle dorsiflexors 3-/5. Ankle plantarflexors 4-/5. Left Lower Extremity: Hip flexors 4-/5. Hip abductors 4-/5. Knee flexors 3-/5. Knee extensors 3-/5. Ankle dorsiflexors 3-/5. Ankle plantarflexors 4-/5. Sensation: Intact as to pain and light pressure in bilateral lower extremities Bed Mobility/Transfers: Supine to sit contact-guard HOB at 30 degrees Sit to stand contact-guard assist Stand to sit contact-guard assist Bed to chair contact-guard assist Chair to bed contact-guard assist Gait: Distance of 100 feet requiring stand by assist. Anna decreased decreased. Step height . Step length decreased. Balance: Static Sitting: Normal Dynamic Sitting: Normal Static Standing: Fair Dynamic Standing: Fair Assessment: Hope requires the use of a front-wheeled walker for all mobility ADL performance and stand by assist PT at time of evaluation.? She is in no need of any equipment as she has them all at home. Patient presents with clinical signs and symptoms consistent with current/admitting diagnoses that have resulted to mobility limitations, gait instability, generalized weakness, and impairment of motor control as demonstrated by the following impairment level findings: 1.? Decreased strength to B LE major muscle groups 2.? Impaired standing balance 3.? Impaired activity tolerance 4.? Skin breakdown to sacral area and left anterior distal leg 5.? Mild confusion Impairments are contributing to the following functional limitations: 1.? Inability to safely ambulate without assistive device and physical as sistance 2.? Increase completion time for mobility ADL performance 3.? Increased risk for falls Goals: Goals X1 week 1. Supine-Sit independent NOT MET 2. Sit-Supine independent NOT MET 3. Sit-Stand independent NOT MET 4. Stand-Sit independent NOT MET 5. Bed-Chair independent NOT MET 6. Chair-Bed independent NOT MET 7. Independent gait on level surface with use of least restrictive device for at least 300 feet without report of pain nor dyspnea NOT MET 8. Independent stair negotiation while holding onto bilateral rails for at least 10 steps without report of pain nor dyspnea NOT MET 9. Independent with home exercise program NOT MET 10. Good static and dynamic standing balance/tolerance NOT MET DISCHARGE RECOMMENDATIONS: [] ? Home with no services [] [X] ? Home with services.? Patient will benefit from home health PT services in order to progress mobility level using least restrictive assistive ambulatory device, assess home safety, identify additional equipment needs, and establish a functional maintenance program that will increase ability of patient to remain at home. [] ? Home with outpatient PT [] [] ? SNF for continued rehabilitation [] [] ? [facility] [] [] ? SNF versus LTC based on ability to participate and progress [] TREATMENT CODE/TIME: [place] Thank you for the opportunity to participate in the care of this patient. Sue Dejesus PT, DPT, CLT [facility] [place], [place]
== END 2021-08-02 14:22 | disposition home health service (06) | DRG 637 ==
LOC: ER 07-31 01:54 → ICU 07-31 03:32 → MS 08-01 21:20
PROVIDERS: Family Medicine; Admitting Provider Internal Medicine; Emergency Provider Emergency Medicine; PCP Physician Assistant; Visit Provider Internal Medicine
DX: E11.01 Type 2 diabetes mellitus with hyperosmolarity with coma; G92.8 Other toxic encephalopathy; I48.19 Other persistent atrial fibrillation; I47.1 Supraventricular tachycardia; I48.92 Unspecified atrial flutter; E87.1 Hypo-osmolality and hyponatremia; I50.42 Chronic combined systolic (congestive) and diastolic (congestive) heart failure; L97.811 Non-pressure chronic ulcer of other part of right lower leg limited to breakdown of skin; T83.090A Other mechanical complication of cystostomy catheter, initial encounter; N20.1 Calculus of ureter; T83.510A Infection and inflammatory reaction due to cystostomy catheter, initial encounter; L89.152 Pressure ulcer of sacral region, stage 2; E11.65 Type 2 diabetes mellitus with hyperglycemia; M70.61 Trochanteric bursitis, right hip; R33.9 Retention of urine, unspecified; E83.42 Hypomagnesemia; I11.0 Hypertensive heart disease with heart failure; E78.5 Hyperlipidemia, unspecified; Z86.73 Personal history of transient ischemic attack (TIA), and cerebral infarction without residual deficits; Z93.51 Cutaneous-vesicostomy status; Z79.4 Long term (current) use of insulin; Z79.01 Long term (current) use of anticoagulants; I83.018 Varicose veins of right lower extremity with ulcer other part of lower leg; I87.2 Venous insufficiency (chronic) (peripheral)
CPT/HCPCS: 51705; 36415; 36416; 80048; 80053; 82805; 82947; 82962; 84145; 87040; 87077; 87635; 93005; 96361; 96365; 96366; 96368; 96375; 97110; 97162; 97530; 99221; 99291; 70450; 74176; 81003; 81015; 83036; 83605; 83735; 83880; 84100; 84443; 84484; 85025; 85610; 85730; 87086; 87186; 93010; 99233; 99239; J2060; J2543; J3475; J3490

== ENCOUNTER → 2021-10-18 10:11 | Outpatient (BNVA) | payer MEDICARE, MEDICAID, SELFPAY | PROVIDERS: PCP Physician Assistant; Referring Provider Physician Assistant; Visit Provider Physical Therapy Assistant | DX: Z51.89 Encounter for other specified aftercare (principal); E11.65 Type 2 diabetes mellitus with hyperglycemia; I10 Essential (primary) hypertension | CPT/HCPCS: 99213 ==

== ENCOUNTER 2022-01-05 18:13 | Emergency (ER) | payer MEDICARE, MEDICAID, SELFPAY ==
[2022-01-05 17:47] VITALS: BP 132/80; PULSE 87; RESP 18; TEMP 36.6; O2SAT 97
--- NOTE | 2022-01-05 18:00 | RT.EKG_ITS ---
APPROVED REPORT Exam: Resting ECG Reason for Exam: dizzy Patient Location: E HR:88 bpm ECG Measurements Heart Rate 88 AXIS NM [id number] P [id number] QRSd 81 QRS 25 QT 367 T 29 QTc 445 Conclusion Atrial fibrillation...? atrial activity Low voltage, extremity and precordial leads...extremity<0.5mV, precordial<1.0mV Consider anteroseptal infarct...Q >30mS, dimin R, V1-V2. Afib. No STEMI. I have reviewed and interpreted ECG and agree with software generated interpretation.
--- NOTE | 2022-01-05 18:10 | ED.GENADUL_ITS ---
Discharge Plan Disposition Patient Disposition: HOME Condition: Stable Discharge Details Clinical Impression: Hypoglycemia, UTI (urinary tract infection) Primary Care Provider: Dean Camilo ED Provider: Cullen Ponce Home Meds and New Rx's Prescriptions: New cephalexin 500 mg capsule 500 mg PO QID 7 Days Qty: 28 0RF No Action nystatin 100,000 unit/gram powder 1 applic Topical BID PRN (Reason: itching) Qty: 60 11RF Rx Instructions: Apply to abdominal fold and under breasts. (DME) Depend Underwear For Women S-M Misc 1 ea Miscellaneous TID Qty: 100 12RF Rx Instructions: DEPEND PULL UP FOR WOMEN SIZE LARGE diltiazem HCl 120 mg capsule,extended release 24hr 120 mg PO DAILY Jardiance 10 mg tablet 10 mg PO DAILY insulin lispro [Humalog KwikPen Insulin] 100 unit/mL insulin pen See Rx Instructions SUBCUT QMEALS Label Comments: INJECT 12 UNITS SUBCUTANEOUSLY DIRECTED WITH MEALS Rx Instructions: 12 units in AM and 6 units PM subcutaneously with meals; lisinopril 10 mg Tablet 10 mg PO DAILY insulin glargine [Lantus Solostar U-100 Insulin] 100 unit/mL (3 mL) Insulin Pen 20 unit subcut HS Qty: 15 1RF metoprolol succinate 100 mg tablet extended release 24 hr 100 mg PO DAILY Qty: 0 0RF Xarelto 15 mg Tablet 15 mg PO DAILY atorvastatin 20 mg Tablet 20 mg PO HS Qty: 30 0RF magnesium oxide [MagOx] 400 MG tablet 400 mg PO DAILY Qty: 30 0RF metformin 1,000 mg tablet 1,000 mg PO BID Qty: 60 0RF omeprazole 20 MG capsule,delayed release(DR/EC) 20 mg PO DAILY Qty: 30 0RF furosemide 20 mg tablet 20 mg PO DAILY Qty: 30 0RF Discharge Instructions Instructions: Urinary Tract Infection in Women (ED), Hypoglycemia in a Person with Diabetes (ED) Additional Instructions: At this time you have a urinary tract infection. This may have been a component of the cause of your hypoglycemia, but it is more likely secondary to your diabetes medications. Please eat food regularly to maintain a good blood sugar level. Please monitor your sugar closely to prevent any significant hypoglycemia. Please take the antibiotic as directed to help with your urinary tract infection. It is been sent to your pharmacy on file. You have been given a small amount of antibiotic to hold you over until then. If you notice any worsening of your symptoms, or any new symptoms such as vomiting, diarrhea, fever, chills, shortness of breath, chest pain, numbness, weakness, or fainting , please return immediately to the emergency department for reevaluation. Please follow up with your primary care provider as soon as possible for reassessment and reevaluation. As always, it was a pleasure participating in your medical care today. Referrals: Dean Camilo [Primary Care Provider] - Medical Decision Making <Chantel Nair DO - Last Filed: 01/05/22 20:11> 1800 -- 71-year-old female with a history of diabetes, hypertension, hyperlipidemia, GERD, CHF, atrial fibrillation who presents for hypoglycemia with glucose of 30 this evening. Ate peanut butter at home and given D50 per E MS and glucose 60 on arrival. Patient appears comfortable and nontoxic. She states her symptoms of headache and dizziness have improved. As she denies any complaint of cough, shortness of breath or fever, history and presentation not consistent with pneumonia. She denies any vomiting, abdominal pain or urinary symptoms that does not appear consistent with acute abdominal abnormality but will obtain a urinalysis to rule out UTI. History and presentation does not appear consistent with CVA, ACS, PE or meningitis. Patient given juice and peanut butter on arrival. We will give a dinner tray and continue to monitor glucose. 1999 -- labs reviewed. Normal white blood cell count. Anion gap 14.4. Creatinine 1.4. Repeat glucose after eating is 93. Plan on recheck of glucose 1-2 more times to ensure that it is uptrending. Urinalysis noted 10-20 WBCs, many bacteria, small leukocyte esterase and positive nitrite. We will plan for treatment of UTI. Dose of keflex ordered. Case endorsed to Dr. Ponce to follow-up on repeat glucose 1-2 more times to make sure that it stabilizes. Plan is for follow-up with primary care doctor for reevaluation and diabetes management as she may need adjustment of her insulin. Medical Records Medical records reviewed: Yes I reviewed the patient's medical records. Lab Data Lab results reviewed: Yes I reviewed the patient's lab results. Labs: 01/05/22 19:40 Urine - Reflex from Ua Urine Culture - Pending Laboratory Tests Range/Units 01/05/22 01/05/22 01/05/22 18:48 18:48 19:40 WBC (4.4-10.8) 10^3/uL 9.05 RBC (3.93-5.22) 10^6/uL 4.35 Hgb (11.2-15.7) g/dL 12.1 Hct (36.0-46.0) % 38.5 MCV (80-95) fL 89 MCH (27.0-33.0) pg 27.8 MCHC (32.0-36.0) % 31.4 L RDW (11.7-14.6) % 14.6 Plt Count (130-400) 10^3/uL 342 MPV (8.0-11.0) fL 10.5 Immature Gran % 0.3 Neutrophils % 64.2 Lymphocytes % 21.8 Monocytes % 11.8 Eosinophils % 1.3 Basophils % 0.6 Nucleated RBC % (0.0-0.3) % 0.0 Absolute Neutrophils (1.2-6.7) 10^3/uL 5.81 Absolute Lymphocytes (1.2-3.4) 10^3/uL 1.97 Absolute Monocytes (0.1-0.8) 10^3/uL 1.07 H Absolute Eosinophils (0.0-0.7) 10^3/uL 0.12 Absolute Basophils (0.0-0.2) 10^3/uL 0.05 Sodium (136-145) mmol/L 138 Potassium (3.5-5.1) mmol/L 4.6 Chloride (98-107) mmol/L 101 Carbon Dioxide (21.0-32.0) mmol/L 22.6 Anion Gap (3-11) mmol/L 14.4 H BUN (7-18) mg/dL 30 H Creatinine (0.55-1.02) mg/dL 1.4 H Estimated GFR/1.73 m2 (mL/min/1.73m2) 36.86 Glucose (74-106) mg/dL 96 Calcium (8.5-10.1) mg/dL 9.3 Total Bilirubin (0.2-1.0) mg/dL 0.2 AST (15-37) U/L 18 ALT (14-59) U/L 20 Alkaline Phosphatase (46-116) U/L 51 Total Protein (6.4-8.2) g/dL 7.3 Albumin (3.4-5.0) g/dL 3.3 L Lipase (73-393) U/L 188 Urine Color (Yellow) Yellow Urine Clarity (Clear) Sl Cloudy Urine pH (5-8) 5.5 Ur Specific [place] (1.005-1.025) 1.015 Urine Protein (Negative) mg/dL Negative Urine Ketones (Negative) mg/dL Negative Urine Blood (Negative) Trace-intact H Urine Nitrite (Negative) Positive H Urine Bilirubin (Negative) Negative Urine Urobilinogen (Up TO 0.2) EU/dL 0.2 Ur Leukocyte Esterase (Negative) Small H Urine RBC (0-2) HPF 0-2 Urine WBC (0-5) HPF 10-20 H Ur Epithelial Cells (Negative) HPF Negative Urine Crystals (Negative) HPF Negative Urine Bacteria (Negative) HPF Many Urine Mucus (Negative) Negative Urine Other (Negative) Moderate Yeast Ur Culture Indicated? Yes Urine Glucose (Negative) mg/dL 500 H ECG Data Attestation: I personally reviewed and interpreted this ECG (s) as follows: Interpretation: Rate of 88, atrial fibrillation, no STEMI <Cullen Ponce DO - Last Filed: 01/05/22 20:55> 1800 -- 71-year-old female with a history of diabetes, hypertension, hyperlipidemia, GERD, CHF, atrial fibrillation who presents for hypoglycemia with glucose of 30 this evening. Ate peanut butter at home and given D50 per EMS and glucose 60 on arrival. Patient appears comfortable and nontoxic. She states her symptoms of headache and dizziness have improved. As she denies any complaint of cough, shortness of breath or fever, history and presentation not consistent with pneumonia. She denies any vomiting, abdominal pain or urinary symptoms that does not appear consistent with acute abdominal abnormality but will obtain a urinalysis to rule out UTI. History and presentation does not appear consistent with CVA, ACS, PE or meningitis. Patient given juice and peanut butter on arrival. We will give a dinner tray and continue to monitor glucose. 1999 -- labs reviewed. Normal white blood cell count. Anion gap 14.4. Creatinine 1.4. Repeat glucose after eating is 93. Plan on recheck of glucose 1-2 more times to ensure that it is uptrending. Urinalysis noted 10-20 WBCs, many bacteria, small leukocyte esterase and positive nitrite. We will plan for treatment of UTI. Dose of keflex ordered. Case endorsed to Dr. Ponce to follow-up on repeat glucose 1-2 more times to xander dykes sure that it stabilizes. Plan is for follow-up with primary care doctor for reevaluation and diabetes management as she may need adjustment of her insulin. Dr. La documentation 8:54 PM Patient does have a urinary tract infection, Keflex will be given. Patient's repeat blood sugars x3 have returned increasingly going up. Patient shows no clinical evidence of hypoglycemia at this time. Patient stable for discharge. She is eating well. I have extensively reviewed the treatment plan and discharge instructions with the patient. I have addressed all patient concerns at this time. The patient was made aware of what symptoms to monitor for that would warrant a return to the emergency department. Discussed the plan with the patient, they demonstrate verbal understanding and agreement with our assessment and plan at this time. The documentation in this chart was dictated using [employer] dictation software. Please excuse any dictation errors. HPI <Chantel Nair, - Last Filed: 01/05/22 20:11> General Mode of arrival: ambulatory . Date/Time Provider Initiated Documentation: 01/05/22 19:19 . Limitations to Documentation: no limitations . Information obtained by: patient . HPI Narrative: Patient is a 71-year-old female with a history of diabetes, GERD, hypertension, hyperlipidemia, CHF, atrial fibrillation who presents for hypoglycemia this evening. Patient states her baseline glucoses usually between 60 and 70 but occasionally is 90-100. She states she felt foggy with headache and dizziness and checked her sugar this evening and it was 30. She states she ate peanut butter and called EMS. EMS gave D50 in the field. Patient states her symptoms are currently improved. She states she takes 12 units of lispro insulin in the morning and 6 units of lispro insulin at dinnertime with 20 units of Lantus before bed. She states she took her nighttime insulin last night and her morning insulin this morning but has not yet taken her dinnertime insulin today. She states she has been eating and drinking normally and denies any decreased intake. She denies fever, chest pain, shortness of breath, coughing, abdominal pain, vomiting, diarrhea or urinary symptoms. Related Data Home Medications Medication Instructions Recorded Confirmed lisinopril 10 mg tablet 10 mg PO DAILY 05/12/19 12/17/21 diaper,brief,adult,disposable #100 ea 10/31/20 12/17/21 (Depend Underwear For Women Small-Medium) nystatin 100,000 unit/gram topical 1 applic topical BID PRN itching 10/31/20 12/17/21 powder #60 grams insulin glargine 100 unit/mL (3 20 unit (0.2 mL) subcut HS #15 mL 11/27/20 12/17/21 mL) subcutaneous pen (Lantus Solostar U-100 Insulin) metoprolol succinate 100 mg 100 mg PO DAILY #0 tabs 11/27/20 12/17/21 tablet,extended release 24 hr rivaroxaban 15 mg tablet (Xarelto) 15 mg PO DAILY 07/31/21 12/17/21 atorvastatin 20 mg tablet 20 mg PO HS #30 tabs 08/02/21 12/17/21 furosemide 20 mg tablet 20 mg PO DAILY #30 tabs 08/02/21 12/17/21 magnesium oxide 400 mg (241.3 mg 400 mg PO DAILY #30 tabs 08/02/21 12/17/21 magnesium) tablet (MagOx) metformin 1,000 mg tablet 1,000 mg PO BID #60 tabs 08/02/21 12/17/21 omeprazole 20 mg capsule,delayed 20 mg PO DAILY #30 caps 08/02/21 12/17/21 release diltiazem HCl 120 mg 120 mg PO DAILY 10/16/21 12/17/21 capsule,extended release 24 hr empagliflozin 10 mg tablet 10 mg PO DAILY 10/16/21 12/17/21 (Jardiance) insulin lispro 100 unit/mL See Rx Instructions subcut QMEALS 12/17/21 12/17/21 subcutaneous pen (Humalog KwikPen (U-100) Insulin) cephalexin 500 mg capsule 500 mg PO QID 7 days #28 caps 01/05/22 Previous Rx's Medication Instructions Recorded diaper,brief,adult,disposable #100 ea 10/31/20 (Depend Underwear For Women Small-Medium) nystatin 100,000 unit/gram topical 1 applic topical BID PRN itching 10/31/20 powder #60 grams insulin glargine 100 unit/mL (3 20 unit (0.2 mL) subcut HS #15 mL 11/27/20 mL) subcutaneous pen (Lantus Solostar U-100 Insulin) metoprolol succinate 100 mg 100 mg PO DAILY #0 tabs 11/27/20 tablet,extended release 24 hr atorvastatin 20 mg tablet 20 mg PO HS #30 tabs 08/02/21 furosemide 20 mg tablet 20 mg PO DAILY #30 tabs 08/02/21 magnesium oxide 400 mg (241.3 mg 400 mg PO DAILY #30 tabs 08/02/21 magnesium) tablet (MagOx) metformin 1,000 mg tablet 1,000 mg PO BID #60 tabs 08/02/21 omeprazole 20 mg capsule,delayed 20 mg PO DAILY #30 caps 08/02/21 release cephalexin 500 mg capsule 500 mg PO QID 7 days #28 caps 01/05/22 Allergies Allergy/AdvReac Type Severity Reaction Status Date / Time trazodone AdvReac Intermediate NIGHTMARES Verified 10/18/21 10:22 General Stated Complaint: Diabetes ARGENIS: 3 Review of Systems <Chantel Nair, - Last Filed: 01/05/22 20:11> All systems reviewed & are unremarkable except as noted in HPI and below Constitutional Constitutional: Denies chills, Denies excessive sweating, Denies fatigue, Denies fever(s), Reports headache(s), Denies weakness and Denies weight loss Eyes Eyes: Reports system reviewed and no additional complaints, except as documented and Denies blurry vision ENT Ears, Nose, Mouth, and Throat: Denies vertigo, Reports dizziness, Denies otalgia, Reports headache(s), Denies nasal congestion, Denies sore throat and Denies throat swelling Cardiovascular Cardiovascular: Denies chest pain, Denies syncope, Denies rapid heart rate and Denies dyspnea Respiratory Respiratory: Denies chest congestion, Denies cough, Denies pain on inspiration and Denies dyspnea Gastrointestinal Gastrointestinal: Denies abdominal pain, Denies diarrhea and Denies vomiting Genitourinary Genitourinary: Denies hematuria, Denies dysuria and Denies flank pain Musculoskeletal Musculoskeletal: Denies back pain and Denies joint swelling Integumentary/Breasts Skin/Breast: Denies lesions and Denies rash Neurologic Neurologic: Denies behavioral changes, Denies confusion, Denies vertigo, Reports dizziness, Denies syncope, Reports headache(s), Denies localized weakness and Denies weakness Psychiatric Psychiatric: Denies behavioral changes, Denies confusion and Denies depression Endocrine Endocrine: Denies excessive sweating and Denies fatigue Hematologic/Lymphatic Hematologic/Lymphatic: Denies easy bruising and Denies lymphadenopathy Allergic/Immunologic Allergic/Immunologic: Denies throat swelling PFSH <Chantel Nair DO - Last Filed: 01/05/22 20:11> All Active Problems (Updated 01/05/22 @ 20:11 by Chantel Nair DO) Hypoglycemia (Acute) UTI (urinary tract infection) (Acute) Chronic kidney disease (CKD) (Chronic) Diabetic ulcer of left lower leg (Acute) Venous stasis dermatitis (Acute) Decreased activities of daily living (ADL) (Acute) Need for home health care (Acute) Palliative care encounter (Acute) Nephrolithiasis (Chronic) Sacral decubitus ulcer, stage II (Acute) Wound of right lower extremity (Acute) Hyperglycemia (Acute) Trochanteric bursitis, right hip (Acute) Right ankle sprain (Acute) Hip pain, right (Acute) GI bleed (Acute) Fracture, lumbar vertebra, compression (Acute) Multiple rib fractures involving four or more ribs (Acute) PSVT (paroxysmal supraventricular tachycardia) (Acute) Urinary retention (Acute 03/31/16) Poorly controlled diabetes mellitus (Chronic) Transient neurologic deficit (Acute) Fungal dermatitis (Acute) Atrial flutter (Acute) Vaginal bleeding, abnormal (Acute) Atrial fibrillation and flutter (Chronic) Diabetes mellitus type 2 in obese (Acute) Fracture of femoral neck, right (Acute) Retention, urine (Acute) Medical History Anemia Atrial fibrillation Cataracts, bilateral CHF (congestive heart failure) LVEF 50-55%, diastolic dysfunction Diabetes GERD (gastroesophageal reflux disease) H/O menorrhagia Hard of hearing History of traumatic fracture of hip Hx of malignant melanoma Hyperlipidemia Hypertension Pulmonary hypertension S/P right hip fracture Seronegative rheumatoid arthritis Supraventricular tachycardia TIA (transient ischemic attack) Unsteady gait Vision changes Surgical History History of bilateral cataract extraction History of suprapubic catheter Status post right hip replacement Family History Other Diabetes Heart disease Hyperlipidemia Hypertension Stroke Social History Smoking/Tobacco Use Status: Former Tobacco Use Smoking risk assessment performed?: Yes Alcohol Intake: never Drug use: Never Substance use type: does not use Household members: none Do you feel safe at home: Yes Do you feel safe in your relationship?: Yes Additional Social history: Lives alone[address] Exam <Chantel Nair DO - Last Filed: 01/05/22 20:11> Const General: cooperative and no acute distress Orientation: alert, awake and oriented x3 HENMT Head: normal to inspection Ears: hearing grossly normal bilaterally and external ears normal General nose exam: external nose normal Face and sinus: normal facial exam Mouth: oral mucosae normal Teeth and gingiva: dentition normal Throat: posterior oropharynx normal Eyes General: appearance normal, both eyes and all related structures Eyelids: eyelids normal Pupils: PERRL EOM: EOM intact bilaterally Neck Neck: normal visual inspection Lymphatic: no lymphadenopathy noted Chest Chest: normal inspection of the chest Resp Effort & Inspection: normal respiratory effort and able to speak in complete sentences Auscultation: clear to auscultation bilaterally Cardio Rate: regular rate Rhythm: regular rhythm GI Inspection: normal to inspection Palpation: soft, not firm, no guarding, no hepatosplenomegaly, no masses and nontender Auscultation: normal bowel sounds Skin General skin exam: no rashes or lesions noted Neuro General: patient alert, patient awake, moves all extremities, no meningeal signs and no focal motor deficits Cognition: normal cognition Speech: speech normal Gait: normal gait Motor: muscle tone normal throughout Sensory Exam: no sensory deficits noted Extrem General: full ROM and capillary refill normal Ankle/foot/toe images: 1. 4mm crusted nontender erosion. 2. Erythema. Warm to touch. Nontender. Psych Appearance: grossly normal Mental Status: mental status grossly normal Speech and Movement: speech and movement normal Affect: normal affect Thought Process: normal Course <Chantel Nair DO - Last Filed: 01/05/22 20:11> Vital Signs Vital signs: Vital Signs Temperature 97.8 F 01/05/22 17:47 Pulse 87 01/05/22 17:47 Respiratory Rate 18 01/05/22 17:47 Pulse Oximetry 97 01/05/22 17:47 Temperature 97.8 F 01/05/22 17:47 Temperature Source Temporal Artery Scan 01/05/22 17:47 Pulse 87 01/05/22 17:47 Respiratory Rate 18 01/05/22 17:47 Pulse Oximetry 97 01/05/22 17:47 Oxygen Delivery Method Room Air 01/05/22 17:47 Oxygen Flow Rate 0 01/05/22 17:47 Sign Out <Chantel Nair DO - Last Filed: 01/05/22 20:11> Sign Out Data: Sign Out Comment: Hypoglycemia with glucose of 30 at home. Follow-up on urinalysis and recheck glucose another 1-2 times. If glucose remains stable and patient continues to feel better, will plan for discharge home. Patient will need follow-up with her PCP for diabetes medication management and potential adjusting of her insulin. Last updated by Chantel Nair DO at 01/05/22 19:40
[2022-01-05 19:09] LABS: Abs Immature Grans 0.03 10^3/uL (0.0-0.06); Absolute Basophil Count 0.05 10^3/uL (0.0-0.2); Absolute Eosinophil Count 0.12 10^3/uL (0.0-0.7); Absolute Lymphocyte Count 1.97 10^3/uL (1.2-3.4); Absolute Monocyte Count 1.07 10^3/uL (0.1-0.8); Absolute Neutrophil Count 5.81 10^3/uL (1.2-6.7); Basophils % 0.6; Eosinophils % 1.3; HCT 38.5 % (36.0-46.0); HGB 12.1 g/dL (11.2-15.7); Immature Grans % 0.3; Lymphocytes % 21.8; MCH 27.8 pg (27.0-33.0); MCHC 31.4 % (32.0-36.0); MCV 89 fL (80-95); MPV 10.5 fL (8.0-11.0); Monocytes % 11.8; Neutrophils % 64.2; Platelet Count 342 10^3/uL (130-400); RBC 4.35 10^6/uL (3.93-5.22); RDW 14.6 % (11.7-14.6); RDW-SD 46.9 fL; WBC 9.05 10^3/uL (4.4-10.8)
--- NOTE | 2022-01-05 19:11 | NUR.NOTE ---
Nursing Note: blood glucose 61 in triage - up to 75 after orange juice. Pt is currently eating a full meal.
[2022-01-05 19:26] LABS: ALT 20 U/L (14-59); AST 18 U/L (15-37); Albumin 3.3 g/dL (3.4-5.0); Alkaline Phosphatase 51 U/L (46-116); Anion Gap 14.4 mmol/L (3-11); BUN 30 mg/dL (7-18); Bilirubin, Total 0.2 mg/dL (0.2-1.0); CO2 22.6 mmol/L (21.0-32.0); CREATININE 1.4 mg/dL (0.55-1.02); Calcium 9.3 mg/dL (8.5-10.1); Chloride 101 mmol/L (98-107); Estimated GFR 36.86 (mL/min/1.73m2); Glucose 96 mg/dL (74-106); Lipase 188 U/L (73-393); Potassium 4.6 mmol/L (3.5-5.1); Sodium 138 mmol/L (136-145); Total Protein 7.3 g/dL (6.4-8.2)
[2022-01-05 19:46] LABS: Bilirubin Negative (Negative); Blood Trace-intact (Negative); Clarity Sl Cloudy (Clear); Glucose 500 mg/dL (Negative); Ketones Negative (Negative); Leukocyte Esterase Small (Negative); Nitrite Positive (Negative); Specific Gravity 1.015 (1.005-1.025); Urobilinogen 0.2 EU/dL (Up TO 0.2); pH 5.5 (5-8)
[2022-01-05 19:56] LABS: Bacteria Many HPF (Negative); Crystals Negative HPF (Negative); Epithelial Cells Negative HPF (Negative); Other Cells Moderate Yeast (Negative); RBC 0-2 HPF (0-2)
[2022-01-05 19:57] LABS: C & S Indicated? Yes; Mucus Negative (Negative)
[2022-01-05] MEDS: Cephalexin 500 MG CAP, 4 CAPS/BTL PO (20:57)
--- OUTSIDE RECORDS SUMMARY | 2022-01-05 21:00 | XMS_ITS | Clinical Summary ---
:1950 Author Organization [facility] [place] [address] Care Team Providers Name Role Phone Dean Camilo Primary Care Provider Allergies Active Allergy Reactions Severity Noted Date Comments Trazodone Medium hallucinations Medications Medication Sig Dispensed Refills Start Date End Date Status metFORMIN Take 1,000 mg by 0 Act davi (GLUCOPHAGE) 500 mg mouth 2 times daily tablet (with meals). 1000 mg = 2 tablets MAGNESIUM GLUCONATE Take 500 mg by 0 Active ORAL mouth 3 times daily. omeprazole (PRILOSEC) Take 20 mg by mouth 0 Active 20 mg Capsule, daily. Delayed Release(E.C.) insulin glargine Inject 35 units every mornin g. Check blood glucose before breakfast 3 mL 0 04/03/2014 Active (LANTUS SOLOSTAR) If blood glucose before colt kfast is over 150 for 2 days in a row, add 2 units of insulin to the next LANTUS dose. This increased dose becomes your new dose. Cont. to increase as needed. Insulin Pen If blood glucose before colt kfast is under 90 for 2 days in a row, subtract 2 units of insulin from the next LANTUS dose. This lower dose becomes your new dose, cont. to decrease as needed. Additional Information Patient taking differently: 40 Units, Inject 35 units every morning. Check blood glucose before breakfastIf blood glucose before breakfast is over 150 for 2 days in a row, add 2 units of insulin to the next LANTUS dose. This increased dos e becomes your new dose. Con t. to increase as needed.If blood glucose before breakfast is under 90 for 2 days in a row, subtract 2 units of insulin from the next LANTUS dose. This lower dose becomes you r new dose, cont. to decreas e as needed., Reported on 01/08/2018 insulin aspart (NOVOLOG) Check blood glucose before each meal. 3 mL 0 04/03/2014 Active Insulin Pen Inject 8 units of novolog by pen for breakfast, 8 units for lunch and 8 units for dinner. rivaroxaban 20 mg Take 1 tablet by mouth 90 tablet 3 4 Active TabletIndications: Atrial every evening. With fibrillation meals. (Please run Rx for pricing) metoprolol succinate Take 100 mg by mouth 2 0 Active (TOPROL-XL) 100 mg Tablet times daily. Indications: Sustained Release 24 Ventricular Rate Control hrIndications: ventricular in Atrial Fibrillation rate control in atrial fibrillation DILTiazem (CARDIZEM CD) 180 Take 1 capsule by mouth 30 capsule 3 01/12/2018 Active mg Capsule, Sust. Release daily. 24 hr lisinopril Take 1 tablet by mouth 90 tablet 3 01/12/2018 Active (PRINIVIL;ZESTRIL) 10 mg daily. Tablet atorvastatin (LIPITOR) 20 Take 1 tablet by mouth 90 tablet 3 0 02/02/2018 Active mg TabletIndications: daily. 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 02/15/2021 mellitus, with fat layer exposed Seronegative rheumatoid arthritis 02/01/2018 Heart murmur 02/01/2018 Gastroesophageal reflux 02/01/2018 Pseudophakia, both eyes 02/01/2018 Diabetic peripheral neuropathy 02/01/2018 Hypertension, essential, benign 02/01/2018 Hyperlipidemia 02/01/2018 Syncope 01/08/2018 Symptomatic bradycardia 01/08/2018 Morbid obesity 01/08/2018 SVT (supraventricular tachycardia) 03/29/2014 Diabetes mellitus 03/29/2014 Atrial fibrillation 03/29/2014 Gait instability 10/06/2011 Seronegative arthritis 10/06/2011 Osteoarthrosis, unspecified whether generalized or loc alized, pelvic 10/06/2011 region and thigh Osteoarthrosis, unspecified whether generalized or loc alized, lower leg 10/06/2011 Osteoarthrosis, unspecified whether generalized or loc alized, ankle and 10/06/2011 foot Nevus 07/29/2011 History of malignant melanoma 07/17/2011 History of basal cell carcinoma 07/17/2011 Personal history of malignant melanoma 01/01/2011 Rosacea 01/01/2011 Basal cell carcinoma of back 01/01/2011 Malignant melanoma 12/31/2010 Overview: Apr 2010 - upper central back Immunizations Name Administration Dates Next Due Influenza Vaccine, Unspecified Formulation 03/16/2017 Influenza Vaccine, Whole 05/05/2007 Tdap Vaccine 11/20/2006 Zoster Vaccine, Live 03/26/2015 Family History Medical History Relation Comments Diabetes Mother Heart Disease Mother Multiple Sclerosis Sister Relation Status Comments Mother Sister Social History Tobacco Use Types Packs/Day Years Used Date Former Smoker Cigarettes Quit: 06/22/18 78 Smokeless Tobacco: Never Used Comments: per phone call 01/02/2011 Alcohol Use Standard Drinks/Week Comments Yes 0 (1 standard drink = 0.6 oz pure alcoho l) 1 drink every 3-4 months Alcohol Habits Answer Date Recorded How often do you have a drink containing Not asked alcohol? How many drinks containing alcohol do you have Not asked on a typical day when you are drinking? How often do you have six or more drinks on Not asked one occasion? Comment: 1 drink every 3-4 months 03/29/2014 Sex Assigned at Date Recorded Not on file Last Filed Vital Signs Vital Sign Reading Time Taken Comments Blood Pressure 151/92 02/28/2021 2:15 PM EDT Pulse 61 02/28/2021 2:15 PM EDT Temperature 36.1 ??C (97 ??F) 02/28/2021 2:15 PM EDT Respiratory Rate 18 01/11/2018 11:50 AM EDT Oxygen Saturation 95% 02/28/2021 2:15 PM EDT Inhaled Oxygen Concentration - - Weight 94.7 kg (208 lb 12.4 oz) 01/11/2018 5:00 AM EDT Height 167.6 cm (5' 6) 01/08/2018 1:59 AM EDT Body Mass Index 33.7 01/08/2018 1:59 AM EDT Plan of Treatment Health Maintenance Due Date Last Done Comments Covid-19 Vaccine (#1) 1953 Pneumoccocal Vaccine: 65+ (1 - 1954 PCV) DM Opthalmology Exam 1958 DM Urine Microalbumin yearly 1958 Hepatitis C Screening 1966 Breast Cancer Share Decision 1988 Needed Colonoscopy 1993 Breast Cancer screening 1998 Advance Directive 2003 Bone Density Scan 2013 Zoster vaccine (2 of 3) 05/21/2015 03/26/2015 Tetanus vaccine 11/20/2016 11/20/2006 DM Hemoglobin A1c 04/10/2018 01/08/2018, 03/29/2014 DM Creatinine yearly 01/11/2019 01/11/2018, 01/10/2018, 01/09/2018, Additional history exists Influenza (Flu) vaccine (1 of 1 - 02/20/2022 03/16/2017, Influenza standard series) Tdap adult Completed 11/20/2006 Insurance Payer Benefit Plan / Subscriber ID Effective Dates Phone Addre ss Type Group [facility] [id number] 2020-Presen [phone] [address] [address] MEDICARE MEDICARE t 5 [place] [address] [place] [id number] 2019-Prese [phone] [address] [place] [address] Advance Directives Latest Code Status on File Code Status Date Activated Date Inactivated Comments Full Code 01/08/2018 12:56 AM 01/11/2018 4:40 PM Does patient have capacity to make decision: Yes Full Code 03/29/2014 3:41 AM 03/30/2014 5:27 PM Order Status: Initial Order Does patient have decision making capacity? Yes, Order is based on Patients wishes. Care Teams Automotive Dismantler Relationship Specialty Start Date End Date Dean Camilo PA PCP - General Internal Medicine 02/01/21 [address] [place], [place] [address]
--- OUTSIDE RECORDS SUMMARY | 2022-01-05 21:00 | XMS_ITS | Encounter Summary ---
:1950 Author Organization [facility] [place] [address] Care Team Providers Name Role Phone Dean Camilo Primary Care Provider Encounter Details Date Type Department Care Team Description 07/31/2021 Ancillary Procedure Radiology Library at Sunil Cuba MD [facility] [place] [address] [place] [address] [phone] (Wo rk) Social History Tobacco Use Types Packs/Day Years [...] Assigned at Date Recorded Not on file documented as of this encounter Plan of Treatment Not on filedocumented as of this encounter Procedures Procedure Name Priority Date/Time Associated Diagnosis Comme nts FILM LIBRARY Routine 07/31/2021 2:01 AM Results f or this STORAGE ONLY CT EST procedure ar e in ABDOMEN AND PELVIS the resul ts section. documented in this encounter Results Film Library- Storage Only CT Abdomen & Pelvis (07/31/2021 2:01 AM EST) Specimen (Source) Anatomical Location Collection Method / Collectio n Time Received Time / Laterality Volume Narrative RAD - 07/31/2021 2:01 AM EST This exam is auto-finalizing. It's purpo se is for storage only. Sunil Cuba MD IMG FILM LIBRARY ORDERABLES Performing Organization Address City/State/ZIP Code Phon e Number [place], [place] documented in this encounter Visit Diagnoses Not on filedocumented in this encounter Care Teams Oxidation Engineer Relationship Specialty Start Date End Date Dean Camilo PA PCP - General Internal Medicine 02/01/21 [address] [place] [address] documented as of this encounter
--- OUTSIDE RECORDS SUMMARY | 2022-01-05 21:00 | XMS_ITS | Encounter Summary ---
:1950 Author Organization [place] [address] Care Team Providers Name Role Phone Dean Camilo Primary Care Provider Encounter Details Date Type Department Care Team Description 07/31/2021 Ancillary Procedure Radiology Library at Sunil Cuba MD [facility] PEDIATRIC [place] [address] [place] [address] [phone] (Wo rk) Social History Tobacco Use Types [...] Diagnosis Comme nts FILM LIBRARY Routine 07/31/2021 2:04 AM Results f or this STORAGE ONLY CT EST procedure ar e in HEAD the results section. documented in this encounter Results Film Library- Storage Only CT Head (07/31/2021 2:04 AM EST) Specimen (Source) Anatomical Location Collection Method / Collectio n Time Received Time / Laterality Volume Narrative DH RAD - 07/31/2021 2:04 AM EST This exam is auto-finalizing. It's purpo se is for storage only. Sunil Cuba MD IMG FILM LIBRARY ORDERABLES Performing Organization Address City/State/ZIP Code Phon e Number RAD [place], [place] documented in this encounter Visit Diagnoses Not on filedocumented in this encounter Care Teams Produce Field Merchandiser Relationship Specialty Start Date End Date Dean Camilo PA PCP - General Internal Medicine 02/01/21 [address] [place] [address] documented as of this encounter
--- OUTSIDE RECORDS SUMMARY | 2022-01-05 21:01 | XMS_ITS | Encounter Summary ---
:1950 Author Organization [facility] [place] [address] Care Team Providers Name Role Phone Hoa Jacques APRN Primary Care Provider [phone] Reason for Visit Reason Onset Date Comments Medication Refill 05/01/2014 Encounter Details Date Type Department Care Team Description 05/01/2014 Refill Cardiology at [facility] Cathie Venegas, Medication Refill [facility] [place] [address] [facility] [phone] CARDIOLOGY DEPT [place] [id number] (Wo rk) Social History Tobacco Use Types Packs/Day Years Used Date Former Smoker Cigarettes Quit: 06/22/18 80 Comments: per phone call 01/02/2011 Alcohol Use [...] on file documented as of this encounter Miscellaneous Notes Telephone Encounter - Cathie Venegas MD - 05/01/2014 10:53 AM EST Refilled rivaroxaban and sent out call to patient to ask her to stop her low dose aspirin. She has diabetes, and no history of stroke or CAD, and takes other NSAIDs for arthritis. documented in this encounter Plan of Treatment Not on filedocumented as of this encounter Visit Diagnoses Diagnosis Atrial fibrillation documented in this encounter Care Teams Printing Machine Operator Relationship Specialty Start Date End Date Hoa Jacques, SHO PCP - General 06/24/10 12/19/17 documented as of this encounter
--- OUTSIDE RECORDS SUMMARY | 2022-01-05 21:01 | XMS_ITS | Encounter Summary ---
:1950 [place] [address] Care Team Providers Name Role Phone Ruben Gillette MD Primary Care Provider [phone] Reason for Referral Diagnostic Test (Routine) - Closed Specialty Diagnoses / Procedures Referred By Contact Refer red To Contact Diagnoses Symptomatic bradycardia Myra Cobb APRN Procedures [facility] [place] [address] Referral ID Status Reason Start Date Expiration Date Visits V isits Requested Authorized [id number] Closed Specialty 01/11/2018 01/11/2019 1 1 Service Requested Reason for Visit Auth/Cert Specialty Diagnoses / Procedures Referred By Contact Refer red To Contact Diagnoses Symptomatic bradycardia BRADYCARDIA HYPOTENSION Referral ID Status Reason Start Date Expiration Date Visits Requ ested Visits Authorized [id number] 1 1 Encounter Details Date Type Department Care Team Description 01/11/2018 Hospital Encounter Non-Invasive Symptomat ic brady[place] [address] Social History Tobacco Use Types Packs/Day Years [...] on file documented as of this encounter Medications at Time of Discharge Medication Sig Dispensed Refills Start Date End Date DILTiazem (CARDIZEM Take 1 capsule by 30 capsule 3 8 CD) 180 mg Capsule, mouth daily. Sust. Release 24 hr lisinopril Take 1 tablet by mouth 90 tablet 3 01/12/2018 (PRINIVIL;ZESTRIL) 10 daily. mg Tablet metoprolol succinate Take 100 mg by mouth 2 0 (TOPROL-XL) 100 mg times daily. Tablet Sustained Indications: Release 24 Ventricular Rate hrIndications: Control in Atrial ventricular rate Fibrillation control in atrial fibrillation rivaroxaban 20 mg Take 1 tablet by mouth 90 tablet 3 2013 TabletIndications: every evening. With Atrial fibrillation meals. (Please run Rx for pricing) insulin glargine Inject 35 units every mornin g. Check blood glucose before breakfast 3 mL 0 04/03/2014 (LANTUS SOLOSTAR) If blood glucose before colt [...] new dose, cont. to decrease as needed. insulin aspart Check blood glucose before each meal. 3 mL 0 04/03/2014 (NOVOLOG) Insulin Pen Inject 8 units of novolog by pen for breakfast, 8 units for lunch and 8 units for dinner. MAGNESIUM GLUCONATE Take 500 mg by mouth 3 0 ORAL times daily. omeprazole (PRILOSEC) Take 20 mg by mouth 0 20 mg Capsule, Delayed daily. Release(E.C.) metFORMIN (GLUCOPHAGE) Take 1,000 mg by mouth 0 500 mg tablet 2 times daily (with meals). 1000 mg = 2 tablets atorvastatin (LIPITOR) Take 1 tablet by mouth 30 tablet 3 0 01/11/2018 02/02/2018 20 mg Tablet daily. documented as of this encounter Plan of Treatment Not on filedocumented as of this encounter Procedures Procedure Name Priority Date/Time Associated Diagnosis Comme nts ZIOPATCH Routine 01/11/2018 3:10 PM Symptomatic Results f or this EDT bradycardia procedure are i n the results section. documented in this encounter Results Ziopatch (01/11/2018 3:10 PM EDT) Specimen (Source) Anatomical Location Collection Method / Collectio n Time Received Time / Laterality Volume Narrative Ibrahima Miller MD - 02/01/2018 9:20 PM EDT Cardiac Electrophysiology Zio Monitor Study Initiated: ??11 January 2018 Duration: ?? 1 days 10 hours (after jacobo domingo of ~52 hours of artifact) Indication: Bradycardia Result: The overall heart rate range was 55-171/ minute, and averaged 92/minute. The predominant underlying rhythm throug hout the monitoring period was conducted atrial fibrillation. Artifact and the limited duration of recording interfered with the assessment for diurnal variation of heart rate and heart rate variation. No pauses >3 seconds were seen. There was a <1.0% burden of isolated ect opic ventricular beats detected, but no couplets, triplets, nor runs were detected. The patient wrote in no timed diary entr ies for symptoms. There was 1 patient-triggered event that corresponde d to atrial fibrillation with ventricular rates 96-135/minute. Conclusion: This monitor study was remarkable for pe rsistent atrial fibrillation with a mean ventricular rate of 92/minute. A low overall burden of ventricular ectopy was detected. This evaluation was hampered by substantial artifact and a relatively short duration of signa l collection. ____ Interpreted by Ibrahima Miller MD, [facility] Myra Cobb APRN CARDIAC SERVICES ORDERABLES documented in this encounter Visit Diagnoses Diagnosis Symptomatic bradycardia Other specified cardiac dysrhythmias documented in this encounter Care Teams Glazier Supervisor Relationship Specialty Start Date End Date Ruben Gillette MD PCP - General General Internal Medicine 01/11/[address] [facility] [place] [address] documented as of this encounter
--- OUTSIDE RECORDS SUMMARY | 2022-01-05 21:01 | XMS_ITS | Encounter Summary ---
:1950 Author Organization [facility] [place] [address] Care Team Providers Name Role Phone Bruna Cardenas APRN Primary Care Provider Encounter Details Date Type Department Care Team Description 01/07/2018 Telephone Cardiology Sunshine Rea MD [facility] [place] [address] CARDIOLOGY DEPT [phone] [place] [id number] (Wo rk) Social History Tobacco Use Types [...] this encounter Miscellaneous Notes Telephone Encounter - Sunshine Rea MD - 01/07/2018 8:10 PM EDT Telephone Triage Note Initial Contact Date: 01/07/18 Initial contact time: 8:20pm Referring Provider: Dr. Rascon Patient Location: [facility] Presenting Symptoms per OSH: 67 year old woman with a history of SVT, atrial fibrillation/flutter (on metoprolol and diltiazem usually, eliquis; last took meds 12pm 01/07), DM who presented with symptomatic bradycardia. 2 hours PTAdeveloped dizziness, feeling unwell, chest discomfort (ache, felt like heart wasn't beating), had syncopal episode, called EMS when woke. EMS found her BP 80's, HR 30-40; poor mentation. Gave her 0.5mgatropine x3; HR increased some with each dose, upper 50-60's on arrival to OSH. No chest pain since arrival to OSH ED, mentating OK, HR 50's. Received IVF for hypotension (baseline 90 systolic). EKG with slow afib. Labs notable for Mg 1.3. Troponin negative. Plan: Patient now stable but unclear trigger for today's episode. Recommend repleting magnesium and holding BB/CCB. OSH is without ICU level bed availability. [facility] on level 1. Recommend transfer to [place] for further monitoring. Sunshine Rea MD Marine Underwriter documented in this encounter Plan of Treatment Not on filedocumented as of this encounter Visit Diagnoses Not on filedocumented in this encounter Care Teams Photolettering Machine Operator Relationship Specialty Start Date End Date Bruna Cardenas APRN PCP - General Family Medicine 12/20/17 01/10/18 documented as of this encounter
--- OUTSIDE RECORDS SUMMARY | 2022-01-05 21:01 | XMS_ITS | Encounter Summary ---
:1950 Author Organization [facility] [place] [address] Care Team Providers Name Role Phone Hoa Jacques APRN Primary Care Provider [phone] Reason for Visit Reason Comments Medication Refill Encounter Details Date Type Department Care Team Description 04/09/2015 Refill Internal Medicine at [place], Chronic atrial [facility] MD fibrillation [facility] [place] [address] GENERAL INTERNAL [phone] MEDICINE [place] [phone] (Wo rk) Social History Tobacco Use Types [...] as of this encounter Visit Diagnoses Diagnosis Chronic atrial fibrillation Atrial fibrillation documented in this encounter Care Teams Direct Support Staff Member Relationship Specialty Start Date End Date Hoa Jacques APRN PCP - General 06/24/10 12/19/17 documented as of this encounter
--- OUTSIDE RECORDS SUMMARY | 2022-01-05 21:01 | XMS_ITS | Encounter Summary ---
:1950 Author Organization [facility] [place] [address] Care Team Providers Name Role Phone Dean Camilo Primary Care Provider Reason for Visit Reason Comments Medication Refill Encounter Details Date Type Department Care Team Description 10/21/2014 Refill Cardiology at [facility] Cathie Venegas, Medication Refill [facility] [place] [address] [facility] [phone] CARDIOLOGY DEPT [place], [place] [address] (Wo rk) Social History Tobacco Use Types [...] on filedocumented in this encounter Care Teams Library Media Technician Relationship Specialty Start Date End Date Dean Camilo PA PCP - General Internal Medicine 02/01/21 [address] [place], [place] [id number] documented as of this encounter
--- OUTSIDE RECORDS SUMMARY | 2022-01-05 21:01 | XMS_ITS | Encounter Summary ---
:1950 Author Organization [facility] [place] [address] Care Team Providers Name Role Phone Ruben Gillette MD Primary Care Provider [phone] Reason for Visit Reason Onset Date Comments Transitional Care Management 01/12/2018 Encounter Details Date Type Department Care Team Description 01/12/2018 Patient Outreach Internal Medicine Jessie Bernard ransitional Care at [facility] [place] [address] Social History Tobacco Use Types Packs/Day Years [...] this encounter Miscellaneous Notes Telephone Encounter - Jessie Gonzalez [facility] - 01/12/2018 3:33 PM EDT Post Hospital Discharge Call Transitional Care 01/12/2018 Date of Current Admission 01/08/2018 Facility [facility] Date of most recent discharge to home 01/11/2018 Date of TCM phone call 01/12/2018 Person providing information: patient Discharge Diagnosis: Symptomatic bradycardia Health Status: (Comprehension of reason for hospitalization) Appreciates phone call and reports doing really good FB And yesterday was 168 Reports eating healthy Home health nurse came today and he brought new medicines and set them up for pt to take as directed Aware of med changes Except will review diltiazem dose to ensure taking as directed. Medication Reconciliation: New Medication started: Yes Atorvastatin 20 mg 1 tab daily Lisinopril 10 mg 1 tab daily New dosing: Diltiazem 180 mg 1 capsule daily Lantus 35 units QAM Discontinued Medication: Yes Simvastatin Adherence Issues: (financial/transportation): None identified Clarify Appointments: Assure that patient understands reason for followup appointments and contact information ??? PCP: Yes, 02/04/18 (outside of TCM window) Ruben Gillette MD ??? Specialist: Yes, 02/09/18 Cardiology per DC summary consider referral to EP for bradycardia ??? Diagnostic (lab/radiology) Yes, HR, BP, DC'd on ziopatch Are coordination of discharge services (home care/DME/meals on wheels, example) needed? ?? Yes; if yes assure that patient understands reason for services and contact information and fill out information below HOME HEALTH CARE AGENCY: [facility]. PHONE: [phone] FAX: [phone] Action Plan - assure patient understands action plan ??? What to do if emergent symptoms occur discussed Yes ??? What to do if urgent symptoms occur discussed Yes ??? Plan ahead for your office visit by bringing in your written questions. ??? Bring list of all medications or bring in actual medications to each office visit. Jessie Gonzalez RPH, BCACP 01/12/18 3:33 PM documented in this encounter Plan of Treatment Not on filedocumented as of this encounter Visit Diagnoses Not on filedocumented in this encounter Care Teams Senior Marketing Data Analyst Relationship Specialty Start Date End Date Ruben Gillette MD PCP - General General Internal Medicine 01/11/18 9 [facility] GENERAL INTERNAL [place] [address] documented as of this encounter
--- OUTSIDE RECORDS SUMMARY | 2022-01-05 21:01 | XMS_ITS | Encounter Summary ---
:1950 Author Organization [facility] Address [address] [place] [address] Care Team Providers Name Role Phone Dean Camilo Primary Care Provider Encounter Details Date Type Department Care Team Description 02/28/2021 Tech Visit Vascular Lab at [facility] Dia betic ulcer of toe [facility] associated with type [address] [facility] diabetes mellitus, [place] [address] Social History Tobacco Use Types Packs/Day [...] Name Priority Date/Time Associated Diagnosis Comme nts PATRICK, LEGS, MULTIPLE Routine 02/28/2021 12:51 PM Diabetic ulcer of Results for this LEVELS EDT toe of right foot procedure are in associated with type the res ults 2 diabetes mellitus, section . with fat layer exposed documented in this encounter Results PATRICK, legs, multiple levels (02/28/2021 12:51 PM EDT) Component Value Ref Test Analysis Performed At [facility] Range Method Time Signature VB Text Department: Vascular Surgery Lab VASCUBASE Report Patient: [id number] (DHAVAL YEE) CPT: 52907 ICD10: L97.512;E11.621 Referring Physician: NANCY JEFFRIES ?? Phone: Indications: Patient with right 5th digit ulcer and nocturna l pain, ? PVD Diabetes mellitus: Yes ICD10 Diagnosis Code: L97.512, E11.621 Findings: Right ?Pressure (mm Hg) ?? PATRICK ??Waveform ? TBI ?? Brachial Artery ?143 ? Common Femoral Artery ?Bi- Triphasic ? Popliteal Artery ? Bi-Triphasic ? Dorsalis Pedis (Ankle) Arter y ?173 ? 1.21 ??Bi-Triphasic ? Posterior Tibial (Ankle) Art ray ??185 ? 1.29 ??Bi-Triphasic ? Great Toe ?107 ? 0.75 ?? Left ? Pressure (mm Hg) ?? PATRICK ??Waveform ? TBI ?? Brachial Artery ?138 ? Common Femoral Artery ?Bi- Triphasic ? Popliteal Artery ? Bi-Triphasic ? Dorsalis Pedis (Ankle) Arter y ?173 ? 1.21 ??Bi-Triphasic ? Posterior Tibial (Ankle) Art ray ??175 ? 1.22 ??Bi-Triphasic ? Great Toe ?109 ? 0.76 ?? Interpretation: RIGHT: No significant lower extremity arterial occlusive dis ease. Normal ankle/brachial pressure ratios, ankle Doppler waveforms and toe pressures. LEFT: No significant lower extremity arterial occlusive dise ase. Normal ankle/brachial pressure ratios, ankle Doppler waveforms and toe pressures. Comparison: ??No previous study in our vascular lab da gustavo for comparison. Electronically Signed by: NANCY PORTILLO on 2021-03-04 09:37:53 AM VB Text End of Report VASCUBASE Report Specimen (Source) Anatomical Collection Method Collection Time Re ceived Time Location / / Volume Laterality 02/28/2021 12:51 PM EDT Nancy Jeffries HEAD OF ACQUISITIONS VASCULAR ORDERABLES Performing Organization Address City/State/ZIP Code Phon e Number VASCUBASE documented in this encounter Visit Diagnoses Diagnosis Diabetic ulcer of toe of right foot asso ciated with type 2 diabetes mellitus, with fat layer exposed documented in this encounter Care Teams Surgical Technologist Relationship Specialty Start Date End Date Dean Camilo PA PCP - General Internal Medicine 02/01/21 [address] [place] [address] documented as of this encounter
--- OUTSIDE RECORDS SUMMARY | 2022-01-05 21:01 | XMS_ITS | Encounter Summary ---
:1950 Author Organization [facility] [place] [address] Care Team Providers Name Role Phone Dean Camilo Primary Care Provider Reason for Visit Reason Comments Medication Refill Encounter Details Date Type Department Care Team Description 05/09/2018 Refill Cardiology at [facility] [place] Myra Cobb APRN Medication Refill [facility] [place] [address] [place] [address] [phone] (Wo rk) Social History Tobacco Use Types [...] on filedocumented in this encounter Care Teams Truck Driver Rubbish Collector Relationship Specialty Start Date End Date Dean Camilo PA PCP - General Internal Medicine 02/01/21 [address] [place] [address] documented as of this encounter
--- OUTSIDE RECORDS SUMMARY | 2022-01-05 21:01 | XMS_ITS | Encounter Summary ---
:1950 Author Organization [facility] [place] [address] Care Team Providers Name Role Phone Ruben Gillette MD Primary Care Provider [phone] Reason for Visit Consultation (Routine) - Closed Specialty Diagnoses / Procedures Referred By Contact Refer red To Contact Internal Medicine Diagnoses Symptomatic bradycardia Myra Cobb APRN [address] [place] [address] [place] [address] Phone: Fax: Referral ID Status Reason Start Date Expiration Date Visits V isits Requested Authorized [id number] Closed Consult, 01/11/2018 01/11/2019 1 1 Test & Treat Encounter Details Date Type Department Care Team Description 02/04/2018 Office Visit Internal Medicine at Ruben Gillette PATIENT NOT SEEN Jermaine Vegas MD [address] [place] [address] GENERAL INTERNAL MEDICINE [place] [id number] (Wo rk) Social History Tobacco Use Types [...] on file documented as of this encounter Progress Notes Vanessa Owens MD - 02/05/2018 1:16 PM EDT This patient was not seen in this encounter. This patient was not seen in this encounter. This patient was not seen in this encounter. documented in this encounter Plan of Treatment Not on filedocumented as of this encounter Visit Diagnoses Diagnosis DH PATIENT NOT SEEN documented in this encounter Care Teams Securities Adviser Relationship Specialty Start Date End Date Ruben Gillette MD PCP - General Internal Medicine 01/11/18 9 [facility] GENERAL [place] [address] documented as of this encounter
--- OUTSIDE RECORDS SUMMARY | 2022-01-05 21:01 | XMS_ITS | Encounter Summary ---
:1950 Author Organization [facility] [place] [address] Care Team Providers Name Role Phone Dean Camilo Primary Care Provider Reason for Referral Diagnostic Test (Routine) - New Request Specialty Diagnoses / Procedures Referred By Contact Refer red To Contact Diagnoses Diabetic ulcer of toe of right foot associated with type 2 diabetes mellitus, with fat layer exposed Nancy Jeffries APRN [facility] Vascular Lab 3v Procedures PATRICK, legs, multiple levels [facility] [place] [address] [place] [address] Referral ID Status Reason Start Expiration Visits Visits Date Date Requested Authorized [id number] New Request Specialty 02/15/2021 02/15/2022 1 1 Service Requested Reason for Visit Consultation (Routine) - Closed Specialty Diagnoses / Procedures Referred By Contact Refer red To Contact Wound Care Diagnoses Type 2 diabetes mellitus with hyperglycemia, with long-term current use of insulin Skin ulcer of toe of right foot, limited to breakdown of skin Roni Vargas MD [facility] [place] [address] [place] [address] Referral ID Status Reason Start Date Expiration Date Visits V isits Requested Authorized [id number] Closed Consult, 02/07/2021 02/07/2022 1 1 Test & Treat Encounter Details Date Type Department Care Team Description 02/15/2021 Office Visit Wound Care at [facility] Nancy Jeffries Di abetic ulcer of toe of right foot associated with type 2 diabetes mellitus, with fat layer exposed; [facility] TRANSPORT MEDIC Type 2 diabetes mellitus with hyperglyce robert, with long-term current use of insulin [facility] [address] [place], [place] [address] [phone] Social History Tobacco Use Types Packs/Day Years [...] on file documented as of this encounter Last Filed Vital Signs Vital Sign Reading Time Taken Comments Blood Pressure 172/97 02/15/2021 4:20 PM EDT Pulse 98 02/15/2021 4:20 PM EDT Temperature - - Respiratory Rate - - Oxygen Saturation 99% 02/15/2021 4:20 PM EDT Inhaled Oxygen Concentration - - Weight - - Height - - Body Mass Index - - documented in this encounter Patient Instructions Patient InstructionsNancy Jeffries APRN - 02/15/2021 4:00 PM EDT custodial assesment 3 per week to assess for s/s infection and general nursing assessment as well as wound care. If coming to wound care only need to come twice that week. Right 5th toe Change dressing every 2-3 days or sooner for 50% or greater strike through drainage. 1. Remove old dressing. 2. Cleanser wound bed with wound cleanser or normal saline and gauze. 3. Apply skin prep to periwound skin. 4. Apply 1/8 - 1/4 inch thickness of Iodosorb gel to wound bed(s). 5. Cover wound bed(s) with Mepilex non-bordered foam and Medipore tape OR Mepilex border dressing ORsimilar. 6. Secure edges with skin prep. Please report to the Emergency Department if you develop signs/symptoms of infection, this may include the following: Fever Sweats Chills Nausea, Vomiting or Diarrhea: general malaise Spiking Blood Glucose levels, unprovoked Around the wound site: Redness Warmth Purulent drainage Malodor Try to eat 5-6 servings of following foods: High Protein foods: Beef, chicken, fish Beans, Lentils, peanut butter Uzbek and regular yogurt Cheese, eggs Boost, Ensure shakes Protein powder in a smoothie of your choice Diabetic Foot Care ?? If you have high blood pressure and/or high cholesterol, work with your health care provider to lower it. ?? Never walk barefoot, neither indoors or outdoors. ?? Examine your feet daily for redness, warmth, blisters, ulcers, scratches, cuts and nail problems from shoes or other sources. Look at the bottoms and between toes. Use a mirror or have someone else look for you. ?? Call your doctor immediately if you experience any injury to your feet. Even a minor injury is anemergency for a patient at high risk. ?? Examine your shoes for foreign objects, protruding nails and rough spots inside before putting them one. Look and feel. ?? Buy shoes late in the day. Never buy shoes that need ???breaking in?? . They should be immediately comfortable. Request shoes with deep toe boxes and made of soft leather upper material. ?? Lubricate your entire foot after bathing or if your skin is dry, but avoid putting cream between toes. Avoid Vaseline, petroleum jelly, mineral oil and baby oil. Mike???s wool may be used between toes. Diabetaderm is one good foot cream option. ?? Do not soak your feet. Skin can break down and won???t heal well. ?? Avoid direct heat (heating pads, hot water pads, electric blankets, radiator, fireplaces). You can burn your feet without knowing it. Water temperature should be less than 92 degrees. Estimate with your elbow or bath thermometer (You can get one in any store that sells products.) ?? Don???t use any tape or sticky products such as corn plasters on your feet. The can tear your skin. ?? Do not file, remove or shave calluses or corns yourself, unless instructed otherwise. These should be taken care of by your physician or patcher bowling ball. ?? Avoid using any chemical or strong antiseptic solutions on your feet. Iodine, salicylic acid, corn/callus removers may burn the skin. documented in this encounter Progress Notes Nancy Jeffries APRN - 02/15/2021 4:00 PM EDT Images from the original note were not included. [facility] Initial Consultation Note HPI: Dhaval Yee is a 70 y.o. female referred by Roni Vargas for evaluation of right toe ulcer. She reports about two weeks ago she was wearing a foot brace which caused a wound to her right 5th toethere was bone sticking out. She reports VNA has been covering it with dressing from a shinny package. She reports the wound was more red, but did improve after soaking it. The medical history and recent labs were reviewed prior to the patient's appointment. Home Care: [facility] Patient Active Problem List Diagnosis Code ??? Malignant melanoma C43.9 ??? Personal history of malignant melanoma Z85.820 ??? Rosacea L71.9 ??? Basal cell carcinoma of back C44.519 ??? History of malignant melanoma Z85.820 ??? History of basal cell carcinoma Z85.828 ??? Nevus D22.9 ??? Gait instability R26.81 ??? Seronegative arthritis M13.80 ??? Osteoarthrosis, unspecified whether generalized or localized, pelvic region and thigh M16.9 ??? Osteoarthrosis, unspecified whether generalized or localized, lower leg M17.10 ??? Osteoarthrosis, unspecified whether generalized or localized, ankle and foot M19.079 ??? SVT (supraventricular tachycardia) I47.1 ??? Diabetes mellitus E11.9 ??? Atrial fibrillation I48.91 ??? Syncope R55 ??? Symptomatic bradycardia R00.1 ??? Morbid obesity E66.01 ??? 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 Heart murmur R01.1 ??? Gastroesophageal reflux K21.9 ??? Pseudophakia, both eyes Z96.1 ??? Diabetic peripheral neuropathy E11.42 ??? Hypertension, essential, benign I10 ??? Hyperlipidemia E78.5 Diagnostics: PATRICK's: none Imaging: none Pertinent labs: 11/26/20 01/11/21 Review Of Systems: Denies constitutional symptoms of fever, chills, sweats, fatigue. Neuro: denies SMITH, dizziness CV: Denies CP, SOB GI: denies N/V, diarrhea : Denies voiding issues Diet: Reports she eats well. Wound care: VNA for dressing changes. Leg fatigue + foot pain +, calf cramping +, skin itching - Neuropathy: some to feet Pain: + to bilateral feet and right 5th toe PE: BP (!) 172/97 (BP Location (NBP): Right arm, Patient Position: Sitting, BP Cuff Sizes: Adult (25-34 cm)) Pulse 98 SpO2 99% General: pleasant, 70 y.o. female in NAD. Arrives alone. Mobility: Ambulates with cane. Edema: slight to right 5th toe DP, PT pulses faintly palpable Varicosities: minimal Hemosiderin staining: none Stasis dermatitis: none Callus: + to right 5th toe Nails: long, thick 5.07 filament [place] monofilament exam: 01/29 Wound location Measurement 02/15/21 (Initial) Wound Bed Exudate Periwound skin Odor Right 5th toe 0.2 x 0.2 x 0.1 cm 95% yellow 5% pink Moderate serous Skin tone, dry peeling none Measurements (cm) Right Left Calf girth 38.0 cm 40.0 cm Ankle girth 27.0 cm 26.0 cm The following photo was taken: Right 5th Toe Wound treatment: Wound Location: Cleansed wound with NS. Analgesia: 2% topical lidocain Conservative sharp debridement of necrotic, devitalized tissue on wound bed with #15 scalpel down toand including subcutaneous tissue <20 sq cm. Bleeding easily resolved with normal saline Patient tolerated treatment well. Dressing: Applied Iodosorb, foam and tape. Assessment/ Plan: Dhaval Yee is a 70 y.o. female with diabetic right 5th toe ulcer, suspect due to recent brace causing increased pressure to area. A1C 01/11/21 of 11.8. no recent imaging available. Wound without local signs of infection. Will initiate Iodosorb for debridement, exudate and antimicrobial properties, followed by non border foam and tape for exudate and protection. We reviewed wound healing, signs of infection, nutrition/protein/glucose management and effects on wound care, as well as diabetic foot care. Plan Wound Care PATRICK's prior to next visit Consider Xray if no improvement in wound. Verbal and written wound care instructions were provided. He/she will call with any questions or concerns. Follow up: 7-10 days or sooner with question or concerns. Instructions: custodial assesment 3 per week to assess for s/s infection and general nursing assessment as well as wound care. If coming to wound care only need to come twice that week. Right 5th toe Change dressing every 2-3 days or sooner for 50% or greater strike through drainage. 1. Remove old dressing. 2. Cleanser wound bed with wound cleanser or normal saline and gauze. 3. Apply skin prep to periwound skin. 4. Apply 1/8 - 1/4 inch thickness of Iodosorb gel to wound bed(s). 5. Cover wound bed(s) with Mepilex non-bordered foam and Medipore tape OR Mepilex border dressing ORsimilar. 6. Secure edges with skin prep. Please report to the Emergency Department if you develop signs/symptoms of infection, this may include the following: Fever Sweats Chills Nausea, Vomiting or Diarrhea: general malaise Spiking Blood Glucose levels, unprovoked Around the wound site: Redness Warmth Purulent drainage Malodor Try to eat 5-6 servings of following foods: High Protein foods: Beef, chicken, fish Beans, Lentils, peanut butter Uzbek and regular yogurt Cheese, eggs Boost, Ensure shakes Protein powder in a smoothie of your choice Diabetic Foot Care ?? If you have high blood pressure and/or high cholesterol, work with your health care provider to lower it. ?? Never walk barefoot, neither indoors or outdoors. ?? Examine your feet daily for redness, warmth, blisters, ulcers, scratches, cuts and nail problems from shoes or other sources. Look at the bottoms and between toes. Use a mirror or have someone else look for you. ?? Call your doctor immediately if you experience any injury to your feet. Even a minor injury is anemergency for a patient at high risk. ?? Examine your shoes for foreign objects, protruding nails and rough spots inside before putting them one. Look and feel. ?? Buy shoes late in the day. Never buy shoes that need ???breaking in?? . They should be immediately comfortable. Request shoes with deep toe boxes and made of soft leather upper material. ?? Lubricate your entire foot after bathing or if your skin is dry, but avoid putting cream between toes. Avoid Vaseline, petroleum jelly, mineral oil and baby oil. Mike???s wool may be used between toes. Diabetaderm is one good foot cream option. ?? Do not soak your feet. Skin can break down and won???t heal well. ?? Avoid direct heat (heating pads, hot water pads, electric blankets, radiator, fireplaces). You can burn your feet without knowing it. Water temperature should be less than 92 degrees. Estimate with your elbow or bath thermometer (You can get one in any store that sells infant products.) ?? Don???t use any tape or sticky products such as corn plasters on your feet. The can tear your skin. ?? Do not file, remove or shave calluses or corns yourself, unless instructed otherwise. These should be taken care of by your physician or patcher bowling ball. ?? Avoid using any chemical or strong antiseptic solutions on your feet. Iodine, salicylic acid, corn/callus removers may burn the skin. Cc: Roni Vargas MD [facility] DR ENDO[place]IN[place] [address] PCP: KATHLEEN Retana documented in this encounter Plan of Treatment Not on filedocumented as of this encounter Results PATRICK, legs, multiple levels (02/28/2021 12:51 PM EDT) Component Value Ref Test Analysis Performed At [facility] Range Method Time Signature VB Text Department: Vascular Surgery Lab VASCUBASE Report Patient: [id number] (DHAVAL YEE) CPT: 11145 ICD10: L97.512;E11.621 Referring Physician: NANCY JEFFRIES ?? [...] previous study in our vascular lab da tabase for comparison. Electronically Signed by: NANCY PORTILLO on 2021-03-04 09:37:53 AM VB Text End of Report VASCUBASE Report Specimen (Source) Anatomical Collection Method Collection Time Re ceived Time Location / / Volume Laterality 02/28/2021 12:51 PM EDT Nancy Jeffries TRANSPORT MEDIC VASCULAR ORDERABLES Performing Organization Address City/State/ZIP Code Phon e Number VASCUBASE documented in this encounter Visit Diagnoses Diagnosis Diabetic ulcer of toe of right foot asso ciated with type 2 diabetes mellitus, with fat layer exposed Type 2 diabetes mellitus with hyperglyce robert, with long-term current use of insulin documented in this encounter Care Teams Metal Reed Tuner Relationship Specialty Start Date End Date Dean Camilo PA PCP - General Internal Medicine 02/01/21 [address]irt[address] [place] [address] documented as of this encounter
--- OUTSIDE RECORDS SUMMARY | 2022-01-05 21:01 | XMS_ITS | Encounter Summary ---
:1950 [place] [address] Care Team Providers Name Role Phone Dean Camilo Primary Care Provider Reason for Visit Reason Comments Wound Check Encounter Details Date Type Department Care Team Description 02/28/2021 Office Visit Wound Care at [facility], Type 2 diabetes mellitus with hyperglycemia, with long-term current use of insulin; [facility] Diabetic ulcer of toe of right foot asso ciated with type 2 diabetes mellitus, with fat layer exposed; [facility] Diabetic peripheral neuropat [facility] WOUND [place] [id number] [phone] Social History Tobacco Use Types Packs/Day Years [...] ??F) 02/28/2021 2:15 PM EDT Respiratory Rate - - Oxygen Saturation 95% 02/28/2021 2:15 PM EDT Inhaled Oxygen Concentration - - Weight - - Height - - Body Mass Index - - documented in this encounter Patient Instructions Patient InstructionsCarol Langford APRN - 02/28/2021 2:30 PM EDT Wound care instructions: Right fifth toe - apply bandaid to the right fifth toe, change daily Left fifth toe - Change dressing every 2 days or sooner for 50% or greater strike through drainage. 1. Remove old dressing. 2. Cleanser wound bed with wound cleanser or normal saline and gauze. 3. Apply 1/8 - 1/4 inch thickness of Iodosorb gel to wound bed(s). 4. Cover wound bed(s) with Mepilex non-bordered foam and Medipore tape . Monitor for signs of infection which may include: Fever Sweats Chills Nausea, Vomiting or Diarrhea Unexplained increase in Blood Glucose levels At or around the wound site: Increased pain Swelling or edema Redness Warmth Purulent drainage (thick yellow/green drainage) Malodor Contact the [facility] with any above symptoms Thursday- Thursday 8:00AM-4:30PM ([phone]). If weekends / holidays / evenings, please report to the Emergency Department. documented in this encounter Progress Notes Carol Langford APRN - 02/28/2021 2:30 PM EDT Images from the original note were not included. [facility] Progress Note Chief Complaint: Hope Busby is a 70 y.o. female returns for follow up of right toe ulcer. HPI: Patient was initially referred by Roni Vargas for evaluation of right toe ulcer. She reports about mid January that she was wearing a foot brace which caused a wound to her right 5th toe there was bone sticking out. She reports [facility] has been covering it with dressing from a shinny package. She reports the wound was more red, but did improve after soaking it. ?? The medical history and recent labs were reviewed prior to the patient's appointment. ?? Home Care: [facility] ROS: Negative for constitutional symptoms Appetite: fair, she just fired her caregiver who did cook her meals Pain: no FBS: 220 today and 440 yesterday (due to dietary indiscretion upon discussing with patient) PE: Vital Signs:BP (!) 151/92 (BP Location (NBP): Right arm, Patient Position: Sitting, BP Cuff Sizes: Adult (25-34 cm)) Pulse 61 Temp 36.1 ??C (97 ??F) (Temporal) SpO2 95% Pleasant, 70 y.o., in NAD. Arrives alone. Mobility: wheelchair Edema: none DP/PT pulses: + Venous stasis rash: none Wound location Measurement 02/28/21 Measurement 02/15/21 (Initial) Wound Bed Exudate Periwound skin Odor Right 5th toe ?? healed 0.2 x 0.2 x 0.1 cm 100% epithelial none Skin tone, dry peeling none Left fifth toe 0.4 x 0.6 x < 0.1 cm x 25% adherent slough, 75% pink serous White, macerated, peeling none ?? The following photos were taken: Right fifth toe Left fifth toe Treatment: Cleansed wound with normal saline and gauze. Wound cleansed with VASHE wound cleanser Lidocaine 2% gel applied Removed devitalized tissue, slough with curette down to and including subcutaneous tissue < 20 sqcm. Bleeding: none Dsg: applied adhesive dressing to the right fifth toe Left fifth toe - iodosorb, foam and tape Assessment/Plan: Hope Busby is a 70 y.o. female with healed ulcer on the Right fifth toe and new ulcer on the left fifth toe. No sign of local infection. Will protect the fragile epithelial on the right toe with an adhesive dressing and initiate treatment on the left toe with the iodosorb, foamand tape. Follow up: weekly Wound care instructions: Right fifth toe - apply bandaid to the right fifth toe, change daily Left fifth toe - Change dressing every 2 days or sooner for 50% or greater strike through drainage. 1. Remove old dressing. 2. Cleanser wound bed with wound cleanser or normal saline and gauze. 3. Apply 1/8 - 1/4 inch thickness of Iodosorb gel to wound bed(s). 4. Cover wound bed(s) with Mepilex non-bordered foam and Medipore tape . Monitor for signs of infection which may include: Fever Sweats Chills Nausea, Vomiting or Diarrhea Unexplained increase in Blood Glucose levels At or around the wound site: Increased pain Swelling or edema Redness Warmth Purulent drainage (thick yellow/green drainage) Malodor [facility] with any above symptoms Thursday- Thursday 8:00AM-4:30PM ([phone]). If weekends / holidays / evenings, please report to the Emergency Department. 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
--- OUTSIDE RECORDS SUMMARY | 2022-01-05 21:01 | XMS_ITS | Encounter Summary ---
:1950 Author Organization [facility] [place] [address] Care Team Providers Name Role Phone Dean Camilo Primary Care Provider Reason for Visit Reason Comments Medication Refill Encounter Details Date Type Department Care Team Description 01/11/2019 Refill [place]iology at [facility] Myra Cobb APRN Medication Refill [facility] [place] [address] [place] [address] [phone] (Wo rk) Social History Tobacco Use Types [...] on filedocumented in this encounter Care Teams Tobacco Sieve Operator Relationship Specialty Start Date End Date Dean Camilo PA PCP - General Internal Medicine 02/01/21 [address] [place] [address] documented as of this encounter
--- OUTSIDE RECORDS SUMMARY | 2022-01-05 21:01 | XMS_ITS | Encounter Summary ---
:1950 Author Organization [facility] [place] [address] Care Team Providers Name Role Phone Ruben Gillette MD Primary Care Provider [phone] Reason for Visit Reason Onset Date Comments Other 02/02/2018 Encounter Details Date Type Department Care Team Description 02/02/2018 Telephone Internal Medicine at [facility] [place] [address] Social History Tobacco Use Types Packs/Day [...] this encounter Miscellaneous Notes Telephone Encounter - Mraika Hensley RN - 02/02/2018 11:10 AM EDT Spoke w/ pt-verified name and . Pt would like someone from clinic to call [facility] to schedule transportation to her appointment. Called [facility] and went online to get more information. Relayed to patient that [facility] only requires that patient call ahead to schedule w/c transportation. Did not require telephone call from provider to schedule transportation. Agreed to call and schedule transportation. Will call with further questions or concerns. Telephone Encounter - Avis Kline RN - 02/02/2018 10:41 AM EDT Message forwarded to nurse Htr 2N. Telephone Encounter - Lora Beaulieu - 02/02/2018 7:50 AM EDT Message: pt calling, requesting someone call [facility] to give permission for her transportation to her appt on 02/04. States she spoke with them yesterday and they asked someone from this office call them [phone] Caller and relationship (if other than patient-full name): self Best time to call back: any Ok to leave a message: [y] Ok to send my- message: [] Offered Appointment: MA/Nurse contacted via: Message: y Call: n Pager: n documented in this encounter Plan of Treatment Not on filedocumented as of this encounter Visit Diagnoses Not on filedocumented in this encounter Care Teams Shift Mgr Relationship Specialty Start Date End Date Ruben Gillette MD PCP - General Internal Medicine 01/11/18 9 [facility] [place] [address] documented as of this encounter
--- OUTSIDE RECORDS SUMMARY | 2022-01-05 21:01 | XMS_ITS | Encounter Summary ---
:1950 Author Organization [facility] Address [address] [place] [address] Care Team Providers Name Role Phone Ruben Gillette MD Primary Care Provider [phone] Reason for Visit Reason Comments Atrial Fibrillation Dizziness Hypertension Follow-up Ekg Encounter Details Date Type Department Care Team Description 02/09/2018 Office Visit Cardiology at [facility] Satnam Brady MD Atrial fibrillation, unspecified type (P rimary Dx); [facility] Sym ptomatic bradycardia; Drive Syncope, unspecified syncope type; [place], [place] CARDIOLOGY DEPT. Hypertension, essential, benign; [id number] [place] [address] PATIENT NOT SEEN [phone] Social History Tobacco Use Types Packs/Day Years [...] documented as of this encounter Progress Notes Satnam Brady MD - 02/10/2018 10:47 AM EDT This patient was not seen in this encounter. documented in this encounter Plan of Treatment Not on filedocumented as of this encounter Visit Diagnoses Diagnosis Atrial fibrillation, unspecified type - Primary Symptomatic bradycardia Other specified cardiac dysrhythmias Syncope, unspecified syncope type Hypertension, essential, benign Essential hypertension, benign DH PATIENT NOT SEEN documented in this encounter Care Teams Glass Etcher Helper Relationship Specialty Start Date End Date Ruben Gillette MD PCP - General General Internal Medicine 01/11/18 9 [facility] [place] [address] documented as of this encounter
--- OUTSIDE RECORDS SUMMARY | 2022-01-05 21:01 | XMS_ITS | Encounter Summary ---
:1950 Author Organization [facility] [place] [address] Care Team Providers Name Role Phone Hoa Jacques APRN Primary Care Provider [phone] Reason for Visit Reason Onset Date Comments Medication Refill 04/03/2014 Encounter Details Date Type Department Care Team Description 04/03/2014 Refill Cardiology at [facility] Cathie Venegas, Medication Refill [facility] [place] [address] [facility] [phone] CARDIOLOGY DEPT [place] [address] (Wo rk) Social History Tobacco Use Types [...] on filedocumented in this encounter Care Teams Rubber Flap Cutter Relationship Specialty Start Date End Date Hoa Jacques APRN PCP - General 06/24/10 12/19/17 documented as of this encounter
--- OUTSIDE RECORDS SUMMARY | 2022-01-05 21:01 | XMS_ITS | Encounter Summary ---
:1950 Author Organization [facility] [place] [address] Care Team Providers Name Role Phone None Primary Care Provider Unavailable Encounter Details Date Type Department Care Team Description 11/02/2018 Telephone Internal Medicine at [facility] Myra Clark [address] [place] [address] Social History Tobacco Use Types Packs/Day Years [...] this encounter Miscellaneous Notes Telephone Encounter - Myra Clark - 11/02/2018 8:08 AM EDT Spoke to pt about schedule new patient appt. PCP schedule is not out past the end of November so I will contact her when his schedule is released. Telephone Encounter - Myra Clark - 11/02/2018 8:08 AM EDT ----- Message from Rosalinda Sheikh sent at 11/02/2018 7:57 AM EDT ----- Regarding: No showed Hi, Can one of you please call this patient and see if she wants to reschedule her appointment that she NO SHOWED back in january, if she does not please take him out of the PCP field. If she does want to reschedule please reschedule her with Farhat, or you can also give her the options of the other accepting providers as well! Trudi Evans documented in this encounter Plan of Treatment Not on filedocumented as of this encounter Visit Diagnoses Not on filedocumented in this encounter Care Teams Ornamenter Hand Relationship Specialty Start Date End Date None PCP - General 11/02/18 01/31/21 None documented as of this encounter
--- OUTSIDE RECORDS SUMMARY | 2022-01-05 21:01 | XMS_ITS | Encounter Summary ---
:1950 Author Organization [facility] [place] [address] Care Team Providers Name Role Phone Dean Camilo Primary Care Provider Reason for Visit Reason Comments Medication Refill Encounter Details Date Type Department Care Team Description 01/17/2019 Refill Cardiology at [facility] Myra Cobb APRN Medication Refill [facility] [place] [address] [place] [address] [phone] (Wo rk) Social History Tobacco Use Types [...] on filedocumented in this encounter Care Teams Mortgage Processing Clerk Relationship Specialty Start Date End Date Dean Camilo PA PCP - General Internal Medicine 02/01/21 [address] [place] [address] documented as of this encounter
--- OUTSIDE RECORDS SUMMARY | 2022-01-05 21:01 | XMS_ITS | Encounter Summary ---
:1950 Author Organization [facility] [place] [address] Care Team Providers Name Role Phone Ruben Gillette MD Primary Care Provider [phone] Encounter Details Date Type Department Care Team Description 02/01/2018 Abstract Internal Medicine at [facility], aSra mock , [facility] [address] [place] [address] Social History Tobacco Use Types Packs/Day [...] on filedocumented in this encounter Care Teams Instrument Repair Technician Relationship Specialty Start Date End Date Ruben Gillette MD PCP - General General Internal Medicine 01/11/18 9 [facility] [place] [address] documented as of this encounter
--- OUTSIDE RECORDS SUMMARY | 2022-01-05 21:01 | XMS_ITS | Encounter Summary ---
:1950 [place] [address] Care Team Providers Name Role Phone Ruben Gillette MD Primary Care Provider Reason for Referral Diagnostic Test (Routine) - Closed Specialty Diagnoses / Procedures Referred By Contact Refer red To Contact Diagnoses Symptomatic bradycardia Myra Cobb APRN Procedures [facility] [place] [address] Referral ID Status Reason Start Date Expiration Date Visits V isits Requested Authorized [id number] Closed Specialty 01/11/2018 01/11/2019 1 1 Service Requested Consultation (Routine) - Closed Specialty Diagnoses / Procedures Referred By Contact Refer red To Contact Internal Medicine Diagnoses Symptomatic brady[place] [address] [place] [address] Phone: Fax: Referral ID Status Reason Start Date Expiration Date Visits V isits Requested Authorized [id number] Closed Consult, 01/11/2018 01/11/2019 1 1 Test & Treat Reason for Visit Auth/Cert Specialty Diagnoses / Procedures Referred By Contact Refer red To Contact Diagnoses Symptomatic bradycardia BRADYCARDIA HYPOTENSION Referral ID Status Reason Start Date Expiration Date Visits Requ ested Visits Authorized [id number] 1 1 Encounter Details Date Type Department Care Team Description 01/08/2018 - Hospital Encounter Cardiac Special Joanne Jerome MD [facility] [address] Symptomatic 01/11/2018 Care Unit Satnam Sandoval MD [facility] [place] [address] [address] [facility] [address] Social History Tobacco Use Types Packs/Day Years [...] Sign Reading Time Taken Comments Blood Pressure 144/82 01/11/2018 8:00 AM EDT Pulse 108 01/11/2018 8:00 AM EDT Temperature 36.7 ??C (98.1 ??F) 01/11/2018 11:50 AM EDT Respiratory Rate 18 01/11/2018 11:50 AM EDT Oxygen Saturation 96% 01/11/2018 4:00 AM EDT Inhaled Oxygen Concentration - - Weight 94.7 kg (208 lb 12.4 oz) 01/11/2018 5:00 AM EDT Height 167.6 cm (5' 6) 01/08/2018 1:59 AM EDT Body Mass Index 33.7 01/08/2018 1:59 AM EDT documented in this encounter Discharge Summaries Satnam Brady MD - 01/09/2018 8:49 AM EDT Images from the original note were not included. Discharge Summary Patient Name: Hope Busby Patient Age: 67 y.o. Language: Palauan Race: White Ethnicity: Not nor Admit date: 01/08/2018 Discharge date and time: 01/11/2018 2:25 PM Attending Physician: Satnam Brady MD Discharge Physician: Satnam Brady MD Follow-up Recommendations for Providers: 1. Discharge weight 208 lb 2. Symptomatic Bradycardia -- Discharged on metoprolol succinate 100 mg and diltiazem 180 mg (reduced from metoprolol succinate 100 mg twice a day and diltiazem 240 mg once a day which she was taking prior to admission) 3. Consider referral to EP if patient continues to have significant bradycardia on medical management 4. Please monitor HR and BP. Dose of diltiazem reduced to 240 mg. Please note patient is also on apixaban. 5. Home with zio-patch Inpatient Provider Contact Information: Myra Crook, FAMILY PRACTICE NURSE PRACTITIONER Discharge Diagnoses (Hospital Problems) and Secondary Diagnoses (Chronic Problems): Active Hospital Problems Diagnosis ??? Symptomatic bradycardia ??? Syncope ??? Diabetes mellitus ??? Morbid obesity ??? Atrial fibrillation Resolved Hospital Problems Diagnosis Date Resolved No resolved problems to display. Active Non-Hospital Problems Diagnosis ??? SVT (supraventricular tachycardia) ??? Gait instability ??? Seronegative arthritis ??? Osteoarthrosis, unspecified whether generalized or localized, pelvic region and thigh ??? Osteoarthrosis, unspecified whether generalized or localized, lower leg ??? Osteoarthrosis, unspecified whether generalized or localized, ankle and foot ??? Nevus ??? History of malignant melanoma ??? History of basal cell carcinoma ??? Personal history of malignant melanoma ??? Rosacea ??? Basal cell carcinoma of back ??? Malignant melanoma Operations/Major Procedures: None Studies ?? TTE 01/11/2018 1. There is mild septal hypertrophy of the left ventricle. ?There is normal global left ventricular systolic function. ??e quantitative left ventricular ejection fraction by biplane Parry's method is 70%. ??There are no left ventricular segmental wall motion abnormalities. 2. Right ventricular chamber size, wall thickness, and systolic function are within normal limits. 3. The left atrium is severely dilated.(49.6 ml/m2) 4. There is no hemodynamically significant valve disease. 5. When compared with study dated 03/2014, no significant change was found. ?? History of Presentation: Mrs Hope Busby is a 67 y/o F with h/o Persistent A fib(on metoprolol,cardizem and Xarelto), SVT, DM-2,HTN,HLD and Obesity got transferred from [facility] ([facility]) for syncope and symptomatic bradycardia.She was completely asymptomatic until yesterday evening. She went f or shopping and came home on a bus and started feeling dizziness, chest discomfort and headache.Symptoms lasted for around 15-20 minutes, she checked her blood sugars and they were normal.She found herself on the ground and thought she lost consciousness for few minutes. She was still having symptomsof chest discomfort, headache and dizziness and felt her pulses were very low( as usually measures her pulses by herself ) and then she called EMS. On arrival of EMS she was found to be bradycardic with few episodes of pre syncope and dizziness and her heart rate was around 37-40 and hypotensive (SBP-80 mm of hg).She got 3 does of 0.5mg of atropine by EMS on site. On arrival to [facility] ER ,she denies having any dizziness or chest discomfort but her rate was around 50- 60's and her blood pressure improved to SBP of 110-120 mm of hg. Her troponins were negative and her ekg consistent with bradycardia with a rate of 59/minute. ?? She denies any recent change of medications, denies any fever ,chills or rigors. Denies any palpitations,seizure like activity of bladder/bowel disturbances.She had few episodes of A fib with RVR in the past but denies having any episodEs of bradycardia.She was hospitalized to [facility] in last year for an episode of A fib with RVR and her dose of metoprolol was increased from 50mg to 100mg daily. ?? Labs and Medications from [facility]; ?? Labs; Wbc; 10.66 Hg; 10.9 Platelets; 394 Troponin I; <0.02(0.00-0.06) Mag; 1.3 Na; 139 K; 4.7 Co2; 25.3 BUN; 17 Creatinine; 1.35 LFT's; Normal Glucose; 215 TSH; 1.89 ?? Medications given; Atropine; 0.5mg x 3 by EMS 2gm of magnesium Normal saline; 1 litre ?? Chest X ray; Prominent interstitial markings. ?? X Ray Right Tibia and Fibula;No acute abnormality ?? X ray right ankle; Soft tissue swelling, no fracture ?? CT Head; No acute intra cranial hemorrhage or abnormality ?? Home medications; Omeprazole; 20mg Simvastatin; 20mg Xarelto; 20mg-last dose Thursday evening Cardizem; 240mg Metoprolol XL; 100mg daily Metformin; 1gm BID Insulin aspart Lantus 40 units Magnesium oxide; 400mg ? Hospital Course: Symptomatic Bradycardia with presyncope/syncope Hope Busby is a 67 y.o. female with a history of persistent atrial fibrillation ([id number], on Xarelto), SVT , diabetes type 2, hypertension, hyperlipidemia and obesity who was transferred from [facility] for presyncope/syncope and symptomatic bradycardia. Ms. Gastelum wnsend was admitted to [facility] overnight after being transferred from [facility]. She has a history of atrialfibrillation, on xarelto and does not skip a dose. Her initial symptoms were dizziness, with chest discomfort and a headache which she experienced after getting back to her house from shopping earlier in the day. Glucose was normal. She felt dizzy and later found herself on the ground. She is unsure if she is lost consciousness during this time. She called EMS who found her to be bradycardic with heart rates 37-40 she is on diltiazem 240 mg and metoprolol 100 mg at home. Heart rate found to be in the 30s-40s by EMS, given atropine ??3 with improvement in heart rate. After transfer to [facility] for further workup, diltiazem was reduced to 30mg q6 and metoprolol 100 mg daily (patient was tachycardic withHR 110 at the time). The dose was since increased to 180/day and HR has remained between Heart Rate:[85-108] on the day of discharge with metoprolol 100 mg continued. On the day of discharge the patient ambulated around the unit and was free on anginal/syncopal symptoms. Dysarthric speech CT head and lower extremity x-rays negative for acute abnormality at OSH, head CT repeated here which was negative. Neurology was consulted and noted they thought this was due to poor dentition rather than a neurological deficit. Chest discomfort - NOS Thought to be in the setting of symptomatic bradycardia. Echo showed EF 70% with no wall motion abnormalities. Troponins negative x2. EKG without ischemic changes. The chest discomfort was thought to be in the setting of her tachy- hernán syndrome. Medications have been adjusted. Consider a pacemaker asneeded if symptomatic bradycardia persists. ? Persistent A fib [id number], on xarelto which was held during her inpatient stay due to the possibility of a pacemaker (transitioned to heparin). Medications were adjusted to metoprolol succinate 100 mg daily, diltiazem 180 mg. A pacemaker should be considered if the patient continues to have symptomatic bradycardia in the setting of medical therapy for her atrial fibrillation. ? DM II PO medications held during inpatient stay and the patient was placed on an insulin sliding scale with continuous glucose monitoring. This was well controlled as per her history and denies any recent hypoglycemic episodes to cause dizziness. She will resume her home medications upon discharge. ?? Hx of urinary Retention S/p right hip arthroplasty. She has been using her supra pubic catheter for the last 2 years. ? Hypertension Noted to be hypotensive during her episodes of bradycardia. BP: (118-144)/(58-82) . Discharge meds include diltiazem 180 mg and metoprolol 100 mg. Functional and Cognitive Status: Patient is alert and oriented x3, ambulatory and free of chest painprior to discharge. Important Studies and Lab Data: Labs: Lab Results Component Value Date WBC 7.9 01/10/2018 HGB 11.6 (L) 01/10/2018 HCT 37.3 01/10/2018 PLATELET 371 (H) 01/10/2018 Recent Labs 01/08/18 0129 INR 1.2 Lab Results Component Value Date NA 138 01/11/2018 K 4.4 01/11/2018 CL 102 01/11/2018 CO2 22 01/11/2018 BUN 15 01/11/2018 CREATININE 0.72 01/11/2018 Recent Labs 01/08/18 0129 TSH 1.37 Recent Labs 01/08/18 0129 HA1C 10.8* Recent Labs 01/08/18 1529 01/08/18 0941 01/08/18 0129 CK 101 112 107 TROPONINT <0.01 <0.01 <0.01 Lab Results Component Value Date CHLPL 118 01/08/2018 HDL 51 01/08/2018 CHOLHDL 2.3 01/08/2018 TRIG 51 01/08/2018 LDLCHOL 57 01/08/2018 LDLDIRECT 62 01/08/2018 Pending Studies and Lab Data: Home with zio patch Discharge Conditions/Prognosis: The patient was discharged in stable condition Discharge to: Home Updated Allergies/ADRs: Allergies Allergen Reactions ??? Trazodone hallucinations Immunizations Given this Hospitalization: Immunization History Administered Date(s) Administered ??? Influenza Vaccine, Whole 05/05/2007 Discharge Medications: Your Medications New Medications Dose Details atorvastatin 20 mg Tab Commonly known as: LIPITOR Take 1 tablet by mouth daily. 20 mg Quantity: 30 tablet Refills: 3 lisinopril 10 mg Tab Commonly known as: PRINIVIL;ZESTRIL Take 1 tablet by mouth daily. Start taking on: 01/12/2018 10 mg Quantity: 90 tablet Refills: 3 Continued medications with new dosing Dose Details DILTiazem 180 mg Cp24 Commonly known as: CARDIZEM CD Take 1 capsule by mouth daily. Start taking on: 01/12/2018 What changed: - medication strength - how much to take 180 mg Quantity: 30 capsule Refills: 3 insulin glargine 100 unit/mL (3 mL) pen Commonly known as: LANTUS SOLOSTAR U-100 INSULIN Inject 35 units every morning. Check blood glucose before breakfast If blood glucose before breakfast is over 150 for 2 days in a row, add 2 units of insulin to the next LANTUS dose. This increased dose becomes your new dose. Cont. to increase as needed. If blood glucose before breakfast is under 90 for 2 days in a row, subtract 2 units of insulin from the next LANTUS dose. This lower dose becomes your new dose, cont. to decrease as needed. What changed: - how much to take - additional instructions Quantity: 3 mL Refills: 0 Continued medications, unchanged Dose Details insulin aspart U-100 Inpn Commonly known as: NovoLOG Check blood glucose before each meal. Inject 8 units of novolog by pen for breakfast, 8 units for lunch and 8 units for dinner. Quantity: 3 mL Refills: 0 MAGNESIUM GLUCONATE ORAL Take 500 mg by mouth 3 times daily. 500 mg Refills: 0 metFORMIN 500 mg Tab Commonly known as: GLUCOPHAGE Take 1,000 mg by mouth 2 times daily (with meals). 1000 mg = 2 tablets 1000 mg Refills: 0 metoprolol succinate 100 mg Tablet sr Commonly known as: TOPROL-XL Take 100 mg by mouth 2 times daily. Indications: Ventricular Rate Control in Atrial Fibrillation 100 mg Refills: 0 omeprazole 20 mg Cpdr Commonly known as: PriLOSEC Take 20 mg by mouth daily. 20 mg Refills: 0 rivaroxaban 20 mg Tab Commonly known as: XARELTO Take 1 tablet by mouth every evening. With meals. (Please run Rx for pricing) 20 mg Quantity: 90 tablet Refills: 3 STOPPED Medications simvastatin 20 mg Tab Commonly known as: ZOCOR Smoking Status at Discharge: History Smoking Status ??? Former Smoker ??? Types: Cigarettes ??? Quit date: 06/22/1979 Smokeless Tobacco ??? Never Used Comment: per phone call 01/02/2011 Instructions Given to Patient at Discharge: There are no outpatient Patient Instructions on file for this admission. General Instructions Anti-coagulation follow up: None Call your doctor if: Chest pain, shortness of breath, pain or swelling in legs occurs. If you have non-emergent questions between now and the time of your follow up appointments: During 8am-5pm Thursday through Thursday call [phone] to speak with a nurse in the cardiology clinic All other times call [phone] and ask to speak to the buff wheel fabricator advertising consultant. Return to work: One week Driving: Ok to resume if previously driving Follow up Appointments: PCP -- Dr. Gillette ([facility]) -- Your follow up appointment is scheduled for January at 3:15 Cardiology -- Dr Brady Your follow up appointment is scheduled for January at 3:20 pm Home oxygen therapy: N/A Arrangements for VNA/home care: see orders Future Appointments and Orders Future Appointments Provider Department Dept Phone 02/04/2018 3:30 PM Ruben Gillette MD Primary Care at [facility] [phone] 02/09/2018 3:20 PM Satnam Brady MD Cardiology at [place] [phone] Future Orders Complete By [place] [CAR40 Custom] 01/11/2018 (Approximate) 07/13/2018 Process Instructions: Scheduling Instructions: Questions: Does the patient have a pacemaker? If yes provide HI/LO settings: Which location will this be performed?: [place] Referral to General Internal Medicine [REF40 Custom] As directed Process Instructions: If no progress note charted, please enter Clinical details in comments. Scheduling Instructions: Questions: My question or request is: patient would like to establish with PCP Referral to Home Health - at DISCHARGE [DTD7548 CPT(R)] As directed Process Instructions: Scheduling Instructions: Comments: DOCUMENTATION FOR VNA SERVICES (INCLUDING THOSE PATIENTS WITH MEDICARE COVERAGE REQUIRING HOME VNA SERVICES AND/OR HOSPICE SERVICES) PATIENT'S LOCATION: [facility] [address] [facility] [address] (home) Cloth Winder Machine Operator's Name: self In discussion with the attending physician, it is certified that this patient is under their care and that they, or a Nurse Practitioner,Clinical Nurse specialist or Physician Coding Analyst who is working directly with them, had a face to face encounter that meets the physician face to face encounter requirements with this patient on 01/11/2018 The encounter with the patient was in whole, or in part, for the following medical condition, which is the primary reason for home health care services: 01/11 In discussion with the provider, it is certified that, based on their findings, the following services are medically necessary for home health services. To provide the following care/treatments with the clinical findings supporting the need for servicesas follows: HOME CARE ORDERS: RN ORDERS:Assess wound or incision, vital signs, cardiopulmonary status, nutrition, hydration, elimination, meds effectiveness and management; reinforce education re health issues HOME HEALTH CARE AGENCY: [facility]. PHONE: [phone] FAX: [phone] Start of care:in 48 hrs of d/c FOR MEDICARE ONLY: In discussion with the attending physician, it is certified that the clinical findings support that this patient is homebound because absences from home require considerable and taxing effort due to: post hospitalization for syncope, heart arhythmia evaluation now with new medication regimen for whom home rest is part of initial recovery resolution with the exception of medical appts. Please note that any additional orders needs or changes will need to be obtained from this patient'sPCP: Ruben Gillette MD [facility] INTERNAL MEDICINE / [place]* [phone] All VNA agencies which cover the area of patient's residence have been reviewed, either verbally or in writing, and patient/family have chosen the home health care agency noted Questions: Agency name and contact information: [facility] Patient location post discharge: own home What services are requested: Registered Nurse Start date: Responsible MD post discharge contact info: PCP and [facility] Cardiology Service Discharge References/Attachments Kamini Crook APRN 01/11/2018 documented in this encounter Discharge Instructions Discharge InstructionsMyra Crook APRN - 01/11/2018 2:11 PM EDT Anti-coagulation follow up: None Call your doctor if: Chest pain, shortness of breath, pain or swelling in legs occurs. If you have non-emergent questions between now and the time of your follow up appointments: During 8am-5pm Thursday through Thursday call [phone] to speak with a nurse in the cardiology clinic All other times call [phone] and ask to speak to the buff wheel fabricator advertising consultant. Return to work: One week Driving: Ok to resume if previously driving Follow up Appointments: PCP -- Dr. Gillette ([facility]) -- Your follow up appointment is scheduled for January at 3:15 Cardiology -- Dr Brady Your follow up appointment is scheduled for January at 3:20 pm Home oxygen therapy: N/A Arrangements for VNA/home care: see orders documented in this encounter Medications at Time of Discharge [...] Tablet daily. documented as of this encounter Progress Notes Nasreen Shipley RN - 01/11/2018 2:21 PM EDT Office of Care Management(OCM)/Registered Nurse Renal(CM)/Discharge Planning Service: Cardiology S1 Pager # [phone] RONNIE Shipley RN,BSN,MA,ACM pgr [phone] Referral from RADIO RIGGER CArdiology and AUTO CAMP ATTENDANT that pt would benefit from home RN services as she is on new medication regimen, lives alone and is continuing recovery from hospitalization from syncopal episode. Met w pt to discuss recommendation for home RN services f/u post hospitalization. She agreed and requests the agency she has had in the past and is aware of the homebound expectation. [facility] PHONE: [phone] FAX: [phone] Orders pended for home RN services and info to be made available via [employer] by [facility] Resource Specialists for:above agency. Andi Encinas MSW - 01/11/2018 1:01 PM EDT AUTO CAMP ATTENDANT arranging hospital DC ride with [facility] [phone] ([place] medicaid)R...they will call back with time/warehouse delivery driver info Myra Crook APRN - 01/11/2018 10:25 AM EDT Images from the original note were not included. Inpatient Cardiology Progress Note Patient Name: Hope Busby Service: [employer] RIGGER / PA Responsible Attending: Satnam Brady MD Reason for continued hospitalization: Evaluation and management of arrhythmia / atrial fibrillation Medication adjustment Ambulate today for safety assessment Pending discharge home today Active Problems: Active Hospital Problems Diagnosis ??? Symptomatic bradycardia ??? Syncope ??? Diabetes mellitus ??? Morbid obesity ??? Atrial fibrillation Resolved Hospital Problems Diagnosis Date Resolved No resolved problems to display. Interval History: Patient sitting up in chair, no c/o chest pressure/pain, no trouble breathing. Metoprolol changed to 100 mg succinate today. No presyncope symptoms during admission. Anticipates goinghome today. Patient will need ride arranged with medicaid. Care management team aware. Review of Systems: Review of Systems Constitutional: Negative for activity change, appetite change, chills, diaphoresis and fatigue. HENT: Negative for sore throat and trouble swallowing. Eyes: Negative. Respiratory: Negative for cough, chest tightness (will have chest tightness with presyncopal episodes) and shortness of breath. Cardiovascular: Negative for chest pain, palpitations and leg swelling. Gastrointestinal: Negative for abdominal distention and abdominal pain. Endocrine: Negative. Genitourinary: Negative for difficulty urinating (suprapubic catheter). Musculoskeletal: Negative for back pain. Skin: Negative for color change and pallor. Neurological: Positive for dizziness and speech difficulty (states she gets this underpressure). Negative for syncope, weakness, light-headedness and numbness. Psychiatric/Behavioral: Negative for dysphoric mood. Telemetry: Heart Rate: [77-108] atrial fibrillation Meds: Scheduled Meds: ??? metoprolol succinate 100 mg Oral Daily ??? dilTIAZem 180 mg Oral Daily ??? insulin lispro 3-12 Units Subcutaneous TID AC ??? insulin lispro 8 Units Subcutaneous TID WC ??? insulin glargine 40 Units Subcutaneous Q24H ??? rivaroxaban 20 mg Oral QPM ??? sodium chloride 0.9 % 5 mL Intravenous BID ??? sodium chloride 0.9 % 5 mL Intravenous Q12H ??? famotidine 20 mg Oral Daily ??? docusate sodium 100 mg Oral BID ??? simvastatin 20 mg Oral Nightly ??? lisinopril 10 mg Oral Daily ??? aspirin 81 mg Oral Daily ??? magnesium oxide 400 mg Oral BID Continuous Infusions: PRN Meds:dextrose 50% OR glucagon (human recombinant), sodium chloride 0.9 %, lidocaine, nitroGLYcerin, sodium chloride 0.9 %, acetaminophen Physical Exam: Vital Signs: Last value Range last 24 hrs Temperature Temp: 36.2 ??C (97.2 ??F) Temp: [36.2 ??C (97.2 ??F)-36.8 ??C (98.2 ??F)] Heart Rate Heart Rate: (!) 108 Heart Rate: [73-108] Blood Pressure BP: 144/82 BP: (113-144)/(58-82) Respiratory Rate Resp: 16 Resp: [16-18] SpO2 SpO2: 96 % SpO2: [95 %-96 %] Intake/Output Summary (Last 24 hours) at 01/11/18 1028 Last data filed at 01/11/18 0836 Gross per 24 hour Intake 1900 ml Output 2900 ml Net -1000 ml Patient Vitals for the past 168 hrs: Weight 01/11/18 0500 94.7 kg (208 lb 12.4 oz) 01/08/18 0500 87.8 kg (193 lb 9 oz) 01/08/18 0048 100.9 kg (222 lb 7.1 oz) 01/08/18 0047 100.9 kg (222 lb 7.1 oz) Intake/Output Summary (Last 24 hours) at 01/11/18 1028 Last data filed at 01/11/18 0836 Gross per 24 hour Intake 1900 ml Output 2900 ml Net -1000 ml Patient Vitals for the past 168 hrs: Weight 01/11/18 0500 94.7 kg (208 lb 12.4 oz) 01/08/18 0500 87.8 kg (193 lb 9 oz) 01/08/18 0048 100.9 kg (222 lb 7.1 oz) 01/08/18 0047 100.9 kg (222 lb 7.1 oz) Physical Exam Constitutional: She is oriented to person, place, and time. She appears well- developed. No distress. HENT: Head: Normocephalic and atraumatic. Eyes: Right eye exhibits no discharge. Left eye exhibits no discharge. Neck: Normal range of motion. Neck supple. No JVD present. Cardiovascular: Intact distal pulses. An irregular rhythm present. Exam reveals distant heart sounds. Exam reveals no gallop and no friction rub. No murmur heard. Mild tachycardia pre morning medications Pulmonary/Chest: Effort normal and breath sounds normal. No respiratory distress. She has no wheezes. She has no rales. Abdominal: Soft. Bowel sounds are normal. She exhibits no distension. There is no tenderness. There is no rebound and no guarding. Musculoskeletal: Normal range of motion. She exhibits no edema. Right ankle: She exhibits swelling. She exhibits no ecchymosis and normal pulse. Tenderness (medialand anterior aspect). Feet: Neurological: She is alert and oriented to person, place, and time. Strength RUE 5/5 Strength LUE 5/5 Strength RLE 5/5 Strength LLE 5/5 Denies numbness or tingling Dysarthric Skin: Skin is warm and dry. No rash noted. She is not diaphoretic. No erythema. Nursing note and vitals reviewed. Lab Comments: Recent Labs 01/10/18 0528 01/09/18 0847 01/08/18 0941 WBC 7.9 7.6 7.8 HGB 11.6* 12.3 10.8* HCT 37.3 40.3 35.6* PLATELET 371* 320 383* Recent Labs 01/08/18 0129 INR 1.2 Recent Labs 01/11/18 0437 01/10/18 0528 01/09/18 0847 NA 138 138 137 K 4.4 4.0 4.2 CL 102 101 96* CO2 22 24 24 BUN 15 19* 12 CREATININE 0.72 0.66* 0.91 Recent Labs 01/08/18 0129 AST 11 ALT 13 ALKPHOS 48 BILITOT 0.2 BILIDIR 0.1 Recent Labs 01/11/18 0437 01/10/18 0528 01/09/18 0847 01/08/18 0129 CALCIUM 9.2 9.1 8.7 8.8 MAGNESIUM 0.68* 0.62* 0.65* 0.67* PHOS -- -- -- 3.9 Recent Labs 01/08/18 1529 01/08/18 0941 01/08/18 0129 CK 101 112 107 TROPONINT <0.01 <0.01 <0.01 Pertinent Radiographic/Diagnostic Results: I have independently visualized the following studies: EKG 01/11/2018 Pre-discharge EKG ordered and pending at this time TTE 01/11/2018 1. There is mild septal hypertrophy of the left ventricle. There is normal global left ventricular systolic function. e quantitative left ventricular ejection fraction by biplane Parry's method is 70%. ere are no left ventricular segmental wall motion abnormalities. 2. Right ventricular chamber size, wall thickness, and systolic function are within normal limits. 3. The left atrium is severely dilated.(49.6 ml/m2) 4. There is no hemodynamically significant valve disease. 5. When compared with study dated 03/2014, no significant change was found. Assessment: Hope Busby is a 67 y.o. female with a history of persistent atrial fibrillation ([id number] 4, on Xarelto), SVT , diabetes type 2, hypertension, hyperlipidemia and obesity who was transferred from [facility] for presyncope/syncope and symptomatic bradycardia. Her initial symptoms were dizziness, with chest discomfort and a headache which she experienced after getting back to her house from shopping. Glucose was normal. She felt dizzy and later found herself on the ground. She is unsure if she is lost consciousness during this time. She called EMS whofound her to be bradycardic with heart rates 37-40 she is on diltiazem 240 mg and metoprolol 100 mg at home. She was given0.5mg of atropine by EMS on site. On arrival to [facility] ER ,she denies having any dizziness or chest discomfort but her rate was around 50- 60's and her blood pressure improved to SBP of 110-120 mm of hg. Troponins negative.Initial EKG consistent with bradycardia with a rate of 59/minute. CT head negative at OSH. She was seen by Neuro for some speech difficulties which are chronic for her with no further workup recommended or concerns for CVA. The patient needs to walk some loops on nursing unit, assess exertional HR, as meds continue to be adjusted tailored to avoiding bradycardia, but not too tachy as well as once daily dosing. She has also been somewhat limited with physical activity due to right ankle sprain/discomfort. This has improved overnight with PARUL wrap and icing. She will require assistance with a ride home up north of [facility] and will also need a Ziopatch at discharge. ?? Symptomatic bradycardia with presyncope/syncope Tele: persistent AF, resting rates improving, exertion rates 120'-130's, rare dropped beats, no bradycardia overnight Adjust meds: Metoprolol 50 mg BID and increase diltiazem to goal of 180mg daily (start long acting on 01/10) Ziopatch at discharge F/u with cardiology as outpatient- she wishes to return to [facility] for her PCP/Cardiology care Neuro to consult, no suspicion of CVA or need for further workup at this time ?? Chest discomfort - NOS Troponin negative ECG without ischemic changes Symptom related to presyncopal episode, none since Continue ASA, statin, ACEi, BB ?? Persistent A fib [id number] 4, resume rivaroxiban-stop heparin Continue metoprolol/diltiazem for better rate control-dose adjustments as discussed Telemetry, monitor rate trends She had multiple episodes of SVT before and diagnosed with A fib in 2014 Reports having a cardioversion and adenosine in the past Consider tachy-hernán syndrome, [place] at [place], f/u with cardiology ?? DM II Hold metformin lantus 40 mg daily Insulin sliding scale, + 8 units with meals ACHS BS checks Hx of urinary Retention S/p right hip arthroplasty She has been using her supra pubic catheter for the last 2 years. ?? Hypertension Noted to be hypotensive during her episodes of bradycardia. BP: (118-144)/(58-82) over the last 12 hours. Resumed on lisinopril Right Ankle sprain Symptoms improving Injured during syncopal episode/fall Xray at OSH no Fx Soft tissue swelling noted on medial aspect PARUL wrap, cool compresses Tylenol as needed Discussed with Satnam Brady MD Emily Lubell, APRN 01/11/2018 Associated attestation - Satnam Brady MD - 01/11/2018 11:07 PM EDT Cardiology Attending Addendum I shared this visit with Myra Crook APRN and guided the medical decision-making. More than 30 minutes were spent in [id number] contact with patient and with arranging discharge and coordinating follow-up. Michelle Torres, SHO - 01/10/2018 9:15 AM EDT Inpatient Cardiology Progress Note Patient Name: Hope Busby Service: RADIO RIGGER / PA Responsible Attending: Satnam Brady MD Reason for continued hospitalization: Evaluation and management of arrhythmia / atrial fibrillation Medication adjustment Ambulate today for safety assessment Active Problems: Active Hospital Problems Diagnosis ??? Symptomatic bradycardia ??? Syncope ??? Diabetes mellitus ??? Morbid obesity ??? Atrial fibrillation Resolved Hospital Problems Diagnosis Date Resolved No resolved problems to display. Interval History: Patient sitting up in chair, no c/o chest pressure/pain, no trouble breathing. No presyncope symptoms during admission. Anticipates going home today or tomorrow. Her right ankle is feeling better, but her right knee is a little sore with weightbearing. For now, need more medication adjustment as she does get more tachy with talking and walking to bathroom, late discharge is not likely due to need of ride arrangement 1 hour and a half away. She verbalize understanding Review of Systems: Review of Systems Constitutional: Negative for activity change, appetite change, chills, diaphoresis and fatigue. HENT: Negative for sore throat and trouble swallowing. Eyes: Negative. Respiratory: Negative for cough, chest tightness (will have chest tightness with presyncopal episodes) and shortness of breath. Cardiovascular: Negative for chest pain, palpitations and leg swelling. Gastrointestinal: Negative for abdominal distention and abdominal pain. Endocrine: Negative. Genitourinary: Negative for difficulty urinating (suprapubic catheter). Musculoskeletal: Negative for back pain. Skin: Negative for color change and pallor. Neurological: Positive for dizziness and speech difficulty (states she gets this underpressure). Negative for syncope, weakness, light-headedness and numbness. Psychiatric/Behavioral: Negative for dysphoric mood. Telemetry: HR: 80's-100's, with burst of 120'-130's,atrial fibrillation Meds: Scheduled Meds: ??? metoprolol tartrate 50 mg Oral 2 times per day ??? dilTIAZem 60 mg Oral Q8H DANNI ??? dilTIAZem 30 mg Oral Once ??? dilTIAZem 180 mg Oral Daily ??? insulin lispro 3-12 Units Subcutaneous TID AC ??? insulin lispro 8 Units Subcutaneous TID WC ??? insulin glargine 40 Units Subcutaneous Q24H ??? rivaroxaban 20 mg Oral QPM ??? sodium chloride 0.9 % 5 mL Intravenous BID ??? sodium chloride 0.9 % 5 mL Intravenous Q12H ??? famotidine 20 mg Oral Daily ??? docusate sodium 100 mg Oral BID ??? simvastatin 20 mg Oral Nightly ??? lisinopril 10 mg Oral Daily ??? aspirin 81 mg Oral Daily ??? magnesium oxide 400 mg Oral BID Continuous Infusions: PRN Meds:dextrose 50% OR glucagon (human recombinant), sodium chloride 0.9 %, lidocaine, nitroGLYcerin, sodium chloride 0.9 %, acetaminophen, heparin (porcine) AND [] heparin (porcine) Physical Exam: Vital Signs: Last value Range last 24 hrs Temperature Temp: 36.9 ??C (98.4 ??F) Temp: [36.5 ??C (97.7 ??F)-37 ??C (98.6 ??F)] Heart Rate Heart Rate: 89 Heart Rate: [89-111] Blood Pressure BP: 139/70 BP: (115-140)/(62-83) Respiratory Rate Resp: 18 Resp: [16-18] SpO2 SpO2: 96 % SpO2: [95 %-97 %] Intake/Output Summary (Last 24 hours) at 01/10/18 0916 Last data filed at 01/10/18 0827 Gross per 24 hour Intake 1484 ml Output 1725 ml Net -241 ml Patient Vitals for the past 168 hrs: Weight 01/08/18 0500 87.8 kg (193 lb 9 oz) 01/08/18 0048 100.9 kg (222 lb 7.1 oz) 01/08/18 0047 100.9 kg (222 lb 7.1 oz) Physical Exam Constitutional: She is oriented to person, place, and time. She appears well- developed. No distress. HENT: Head: Normocephalic and atraumatic. Eyes: Right eye exhibits no discharge. Left eye exhibits no discharge. Neck: Normal range of motion. Neck supple. No JVD present. Cardiovascular: Intact distal pulses. An irregular rhythm present. Tachycardia present. Exam revealsdistant heart sounds. Exam reveals no gallop and no friction rub. No murmur heard. Pulmonary/Chest: Effort normal and breath sounds normal. No respiratory distress. She has no wheezes. She has no rales. Abdominal: Soft. Bowel sounds are normal. She exhibits no distension. There is no tenderness. There is no rebound and no guarding. Musculoskeletal: Normal range of motion. She exhibits no edema. Right ankle: She exhibits swelling. She exhibits no ecchymosis and normal pulse. Tenderness (medialand anterior aspect). Feet: Neurological: She is alert and oriented to person, place, and time. Strength RUE 5/5 Strength LUE 5/5 Strength RLE 5/5 Strength LLE 5/5 Denies numbness or tingling Dysarthric Skin: Skin is warm and dry. No rash noted. She is not diaphoretic. No erythema. Nursing note and vitals reviewed. Lab Comments: Recent Labs 01/10/18 0528 01/09/18 0847 01/08/18 0941 WBC 7.9 7.6 7.8 HGB 11.6* 12.3 10.8* HCT 37.3 40.3 35.6* PLATELET 371* 320 383* Recent Labs 01/08/18 0129 INR 1.2 Recent Labs 01/10/18 0528 01/09/18 0847 01/08/18 0129 NA 138 137 137 K 4.0 4.2 4.3 CL 101 96* 98 CO2 24 24 23 BUN 19* 12 16 CREATININE 0.66* 0.91 0.91 Recent Labs 01/08/18 0129 AST 11 ALT 13 ALKPHOS 48 BILITOT 0.2 BILIDIR 0.1 Recent Labs 01/10/18 0528 01/09/18 0847 01/08/18 0129 CALCIUM 9.1 8.7 8.8 MAGNESIUM 0.62* 0.65* 0.67* PHOS -- -- 3.9 Recent Labs 01/08/18 1529 01/08/18 0941 01/08/18 0129 CK 101 112 107 TROPONINT <0.01 <0.01 <0.01 Pertinent Radiographic/Diagnostic Results: I have independently visualized the following studies: TTE: 1. There is mild septal hypertrophy of the left ventricle. There is normal global left ventricular systolic function. e quantitative left ventricular ejection fraction by biplane Parry's method is 70%. ere are no left ventricular segmental wall motion abnormalities. 2. Right ventricular chamber size, wall thickness, and systolic function are within normal limits. 3. The left atrium is severely dilated.(49.6 ml/m2) 4. There is no hemodynamically significant valve disease. 5. When compared with study dated 03/2014, no significant change was found. Assessment: Hope Busby is a 67 y.o. female with a history of persistent atrial fibrillation ([id number] 4, on Xarelto), SVT , diabetes type 2, hypertension, hyperlipidemia and obesity who was transferred from [facility] for presyncope/syncope and symptomatic bradycardia. Her initial symptoms were dizziness, with chest discomfort and a headache which she experienced after getting back to her house from shopping. Glucose was normal. She felt dizzy and later found herself on the ground. She is unsure if she is lost consciousness during this time. She called EMS whofound her to be bradycardic with heart rates 37-40 she is on diltiazem 240 mg and metoprolol 100 mg at home. She was given0.5mg of atropine by EMS on site. On arrival to [facility] ER ,she denies having any dizziness or chest discomfort but her rate was around 50- 60's and her blood pressure improved to SBP of 110-120 mm of hg. Troponins negative.Initial EKG consistent with bradycardia with a rate of 59/minute. CT head negative at OSH. She was seen by Neuro for some speech difficulties which are chronic for her with no further workup recommended or concerns for CVA. The patient needs to walk some loops on nursing unit, assess exertional HR, as meds continue to be adjusted tailored to avoiding bradycardia, but not too tachy as well as once daily dosing. She has also been somewhat limited with physical activity due to right ankle sprain/discomfort. This has improved overnight with PARUL wrap and icing. She will require assistance with a ride home [facility] and will also need a Ziopatch at discharge. ?? Symptomatic bradycardia with presyncope/syncope Tele: persistent AF, resting rates improving, exertion rates 120'-130's, rare dropped beats, no bradycardia overnight Adjust meds: Metoprolol 50 mg BID and increase diltiazem to goal of 180mg daily (start long acting on 01/10) Ziopatch at discharge F/u with cardiology as outpatient- she wishes to return to [facility] for her PCP/Cardiology care Neuro to consult, no suspicion of CVA or need for further workup at this time ?? Chest discomfort - NOS Troponin negative ECG without ischemic changes Symptom related to presyncopal episode, none since Continue ASA, statin, ACEi, BB ?? 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 DM II Hold metformin lantus 40 mg daily Insulin sliding scale, + 8 units with meals ACHS BS checks Hx of urinary Retention S/p right hip arthroplasty She has been using her supra pubic catheter for the last 2 years. ?? Hypertension Noted to be hypotensive during her episodes of bradycardia. BP: (115-139)/(70) over the last 12 hours. Resumed on lisinopril Right Ankle sprain Symptoms improving Injured during syncopal episode/fall Xray at OSH no Fx Soft tissue swelling noted on medial aspect PARUL wrap, cool compresses Tylenol as needed Discussed with Satnam Brady MD Shannon C. SHO Torres 01/10/2018 Associated attestation - Satnam Brady MD - 01/11/2018 12:02 AM EDT Cardiology Attending Addendum I shared this visit with Michelle Torres APRN, and guided the medical decision-making. Michelle Torres APRN - 01/09/2018 10:00 AM EDT Images from the original note were not included. Inpatient Cardiology Progress Note Patient Name: Hope Busby Service: RADIO RIGGER / PA Responsible Attending: Satnam Brady MD Reason for continued hospitalization: Evaluation and management of arrhythmia / atrial fibrillation Medication adjustment Active Problems: Active Hospital Problems Diagnosis ??? Symptomatic bradycardia ??? Syncope ??? Diabetes mellitus ??? Morbid obesity ??? Atrial fibrillation Resolved Hospital Problems Diagnosis Date Resolved No resolved problems to display. Interval History: Patient sitting up in chair, no c/o chest pressure/pain, no trouble breathing. No presyncope symptoms during admission. Review of Systems: Review of Systems Constitutional: Negative for activity change, appetite change, chills, diaphoresis and fatigue. HENT: Negative for sore throat and trouble swallowing. Eyes: Negative. Respiratory: Negative for cough, chest tightness (will have chest tightness with presyncopal episodes) and shortness of breath. Cardiovascular: Negative for chest pain, palpitations and leg swelling. Gastrointestinal: Negative for abdominal distention and abdominal pain. Endocrine: Negative. Genitourinary: Negative for difficulty urinating (suprapubic catheter). Musculoskeletal: Negative for back pain. Skin: Negative for color change and pallor. Neurological: Positive for dizziness and speech difficulty (states she gets this underpressure). Negative for syncope, weakness, light-headedness and numbness. Psychiatric/Behavioral: Negative for dysphoric mood. Telemetry: HR: 51-140,atrial fibrillation, SB Meds: Scheduled Meds: ??? sodium chloride 0.9 % 5 mL Intravenous BID ??? sodium chloride 0.9 % 5 mL Intravenous Q12H ??? famotidine 20 mg Oral Daily ??? docusate sodium 100 mg Oral BID ??? simvastatin 20 mg Oral Nightly ??? lisinopril 10 mg Oral Daily ??? aspirin 81 mg Oral Daily ??? magnesium oxide 400 mg Oral BID ??? metoprolol tartrate 25 mg Oral Q6H DANNI ??? dilTIAZem 30 mg Oral Q6H DANNI ??? insulin lispro 2-8 Units Subcutaneous TID AC Continuous Infusions: ??? heparin (porcine) 1,300 Units/hr (01/09/18 0136) PRN Meds:sodium chloride 0.9 %, lidocaine, nitroGLYcerin, sodium chloride 0.9 %, acetaminophen, heparin (porcine) AND heparin (porcine), dextrose 50% OR glucagon (human recombinant) Physical Exam: Vital Signs: Last value Range last 24 hrs Temperature Temp: 36.4 ??C (97.5 ??F) Temp: [36.4 ??C (97.5 ??F)-37 ??C (98.6 ??F)] Heart Rate Heart Rate: 95 Heart Rate: [83-100] Blood Pressure BP: 120/67 BP: (120-146)/(65-84) Respiratory Rate Resp: 12 Resp: [11-21] SpO2 SpO2: 97 % SpO2: [97 %-98 %] Intake/Output Summary (Last 24 hours) at 01/09/18 1000 Last data filed at 01/09/18 0829 Gross per 24 hour Intake 1483 ml Output 2450 ml Net -967 ml Patient Vitals for the past 168 hrs: Weight 01/08/18 0500 87.8 kg (193 lb 9 oz) 01/08/18 0048 100.9 kg (222 lb 7.1 oz) 01/08/18 0047 100.9 kg (222 lb 7.1 oz) Physical Exam Constitutional: She is oriented to person, place, and time. She appears well- developed. No distress. HENT: Head: Normocephalic and atraumatic. Eyes: Right eye exhibits no discharge. Left eye exhibits no discharge. Neck: Normal range of motion. Neck supple. No JVD present. Cardiovascular: Intact distal pulses. An irregular rhythm present. Tachycardia present. Exam revealsdistant heart sounds. Exam reveals no gallop and no friction rub. No murmur heard. Pulmonary/Chest: Effort normal and breath sounds normal. No respiratory distress. She has no wheezes. She has no rales. Abdominal: Soft. Bowel sounds are normal. She exhibits no distension. There is no tenderness. There is no rebound and no guarding. Musculoskeletal: Normal range of motion. She exhibits no edema. Right ankle: She exhibits swelling. She exhibits no ecchymosis and normal pulse. Tenderness (medialand anterior aspect). Feet: Neurological: She is alert and oriented to person, place, and time. Strength RUE 5/5 Strength LUE 5/5 Strength RLE 5/5 Strength LLE 5/5 Denies numbness or tingling Dysarthric Skin: Skin is warm and dry. No rash noted. She is not diaphoretic. No erythema. Nursing note and vitals reviewed. Lab Comments: Recent Labs 01/09/18 0847 01/08/18 0941 01/08/18 0129 WBC 7.6 7.8 9.1 HGB 12.3 10.8* 10.4* HCT 40.3 35.6* 34.3* PLATELET 320 383* 391* Recent Labs 01/08/18 012 INR 1.2 Recent Labs 01/09/18 0847 01/08/18 0129 NA 137 137 K 4.2 4.3 CL 96* 98 CO2 24 23 BUN 12 16 CREATININE 0.91 0.91 Recent Labs 01/08/18 012 AST 11 ALT 13 ALKPHOS 48 BILITOT 0.2 BILIDIR 0.1 Recent Labs 01/09/18 0847 01/08/18 0129 CALCIUM 8.7 8.8 MAGNESIUM 0.65* 0.67* PHOS -- 3.9 Recent Labs 01/08/18 1529 01/08/18 0941 01/08/18 0129 CK 101 112 107 TROPONINT <0.01 <0.01 <0.01 Pertinent Radiographic/Diagnostic Results: I have independently visualized the following studies: TTE: 1. There is mild septal hypertrophy of the left ventricle. There is normal global left ventricular systolic function. e quantitative left ventricular ejection fraction by biplane Parry's method is 70%. ere are no left ventricular segmental wall motion abnormalities. 2. Right ventricular chamber size, wall thickness, and systolic function are within normal limits. 3. The left atrium is severely dilated.(49.6 ml/m2) 4. There is no hemodynamically significant valve disease. 5. When compared with study dated 03/2014, no significant change was found. Assessment: Hope Busby is a 67 y.o. female with a history of persistent atrial fibrillation ([id number] 4, on Xarelto), SVT , diabetes type 2, hypertension, hyperlipidemia and obesity who was transferred from [facility] for presyncope/syncope and symptomatic bradycardia. Her initial symptoms were dizziness, with chest discomfort and a headache which she experienced after getting back to her house from shopping. Glucose was normal. She felt dizzy and later found herself on the ground. She is unsure if she is lost consciousness during this time. She called EMS whofound her to be bradycardic with heart rates 37-40 she is on diltiazem 240 mg and metoprolol 100 mg at home. She was given0.5mg of atropine by EMS on site. On arrival to [facility] ER ,she denies having any dizziness or chest discomfort but her rate was around 50- 60's and her blood pressure improved to SBP of 110-120 mm of hg. Troponins negative.Initial EKG consistent with bradycardia with a rate of 59/minute. CT head negative at OSH. She was seen by Neuro for some speech difficulties which are chronic for her with no further workup recommended or concerns for CVA. ?? Symptomatic bradycardia with presyncope/syncope Tele: persistent AF rates 110-130's, rare dropped beats, no bradycardia overnight Adjust meds: Metoprolol 50 mg BID and diltiazem 30 mg q6 (change to 120 mg XR tomorrow) Ziopatch at discharge F/u with EP for consideration of PPM for ongoing bradycardia Neuro to consult, no suspicion of CVA or need for further workup at this time ?? Chest discomfort - NOS Troponin negative ECG without ischemic changes Symptom related to presyncopal episode, none since Continue ASA, statin, ACEi, BB ?? 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 DM II Hold metformin lantus 40 mg daily Insulin sliding scale, + 8 units with meals ACHS BS checks Hx of urinary Retention S/p right hip arthroplasty She has been using her supra pubic catheter for the last 2 years. ?? Hypertension Noted to be hypotensive during her episodes of bradycardia. BP: (120-146)/(65-84) over the last 12 hours. Resumed on lisinopril Right Ankle sprain Injured during syncopal episode/fall Xray at OSH no Fx Soft tissue swelling noted on medial aspect PARUL wrap, cool compresses Tylenol as needed Discussed with Satnam Brady MD Shannon C. Schachtner, APRN 01/09/2018 Associated attestation - Satnam Brady MD - 01/09/2018 11:02 PM EDT Cardiology Attending Addendum I shared this visit with Michelle Torres APRN, and guided the medical decision-making. Myra Crook APRN - 01/08/2018 8:04 AM EDT Images from the original note were not included. Inpatient Cardiology Progress Note Patient Name: Hope Busby Service: RADIO RIGGER / PA Responsible Attending: Satnam Brady MD Reason for continued hospitalization: Evaluation and management of arrhythmia / atrial fibrillation Active Problems: Active Hospital Problems Diagnosis ??? Symptomatic bradycardia ??? Syncope ??? Diabetes mellitus ??? Morbid obesity ??? Atrial fibrillation Resolved Hospital Problems Diagnosis Date Resolved No resolved problems to display. Interval History: Admitted overnight from [facility] in the setting of tachybradycardia syndrome, (A. fibwith RVR, symptomatic bradycardia) and recent presyncope versus syncopal event. This morning she is feeling okay, is noted to have garbled speech on rounds. CT negative outside hospital. The patient also states that she tends to have trouble speaking when she feels like she is under pressure and that this is not new for her. Will speak with neuro regarding further workup. Review of Systems: Review of Systems Constitutional: Negative for activity change, appetite change, chills, diaphoresis and fatigue. HENT: Negative for sore throat and trouble swallowing. Eyes: Negative. Respiratory: Positive for chest tightness (with presyncopal episode). Negative for cough and shortness of breath. Cardiovascular: Negative for chest pain, palpitations and leg swelling. Gastrointestinal: Negative for abdominal distention and abdominal pain. Endocrine: Negative. Genitourinary: Negative for difficulty urinating. Musculoskeletal: Negative for back pain. Skin: Negative for color change and pallor. Neurological: Positive for dizziness, speech difficulty (states she gets this underpressure) and light-headedness. Negative for syncope, weakness and numbness. Psychiatric/Behavioral: Negative for dysphoric mood. Telemetry: HR: 51-140,atrial fibrillation, SB Meds: Scheduled Meds: ??? sodium chloride 0.9 % 5 mL Intravenous BID ??? sodium chloride 0.9 % 5 mL Intravenous Q12H ??? famotidine 20 mg Oral Daily ??? docusate sodium 100 mg Oral BID ??? simvastatin 20 mg Oral Nightly ? ? insulin lispro 2-8 Units Subcutaneous 4 Times Daily AC & HS ??? insulin glargine 20 Units Subcutaneous Q24H ??? lisinopril 10 mg Oral Daily ??? aspirin 81 mg Oral Daily ??? magnesium oxide 400 mg Oral BID ??? metoprolol tartrate 25 mg Oral Q6H DANNI ??? dilTIAZem 30 mg Oral Q6H DANNI Continuous Infusions: ??? heparin (porcine) 1,000 Units/hr (01/08/18 0213) PRN Meds:sodium chloride 0.9 %, lidocaine, nitroGLYcerin, sodium chloride 0.9 %, acetaminophen, dextrose 50% OR glucagon (human recombinant), heparin (porcine) AND heparin (porcine) Physical Exam: Vital Signs: Last value Range last 24 hrs Temperature Temp: 36.7 ??C (98.1 ??F) Temp: [36.7 ??C (98.1 ??F)] Heart Rate Heart Rate: (!) 110 Heart Rate: [97-110] Blood Pressure BP: 121/79 BP: (121-139)/(75-79) Respiratory Rate Resp: 20 Resp: [20-21] SpO2 SpO2: 94 % SpO2: [94 %-96 %] Intake/Output Summary (Last 24 hours) at 01/08/18 0806 Last data filed at 01/08/18 0530 Gross per 24 hour Intake 503.33 ml Output 2150 ml Net -1646.67 ml Patient Vitals for the past 168 hrs: Weight 01/08/18 0500 87.8 kg (193 lb 9 oz) 01/08/18 0048 100.9 kg (222 lb 7.1 oz) 01/08/18 0047 100.9 kg (222 lb 7.1 oz) Physical Exam Constitutional: She is oriented to person, place, and time. She appears well- developed. No distress. HENT: Head: Normocephalic and atraumatic. Eyes: Right eye exhibits no discharge. Left eye exhibits no discharge. Neck: Normal range of motion. Neck supple. No JVD present. Cardiovascular: Normal rate, regular rhythm, normal heart sounds and intact distal pulses. Exam reveals no gallop and no friction rub. No murmur heard. Pulmonary/Chest: Effort normal and breath sounds normal. No respiratory distress. She has no wheezes. She has no rales. Abdominal: Soft. Bowel sounds are normal. She exhibits no distension. There is no tenderness. There is no rebound and no guarding. Musculoskeletal: Normal range of motion. She exhibits no edema. Neurological: She is alert and oriented to person, place, and time. Strength RUE 5/5 Strength LUE 5/5 Strength RLE 5/5 Strength LLE 5/5 Denies numbness or tingling Dysarthric Skin: Skin is warm and dry. No rash noted. She is not diaphoretic. No erythema. Nursing note and vitals reviewed. Lab Comments: Recent Labs 01/08/18128 WBC 9.1 HGB 10.4* HCT 34.3* PLATELET 391* Recent Labs 01/08/18128 INR 1.2 Recent Labs 01/08/18128 NA 137 K 4.3 CL 98 CO2 23 BUN 16 CREATININE 0.91 Recent Labs 01/08/18128 AST 11 ALT 13 ALKPHOS 48 BILITOT 0.2 BILIDIR 0.1 Recent Labs 01/08/18128 CALCIUM 8.8 MAGNESIUM 0.67* PHOS 3.9 Recent Labs 01/08/18128 CK 107 TROPONINT <0.01 Pertinent Radiographic/Diagnostic Results: I have independently visualized the following studies: ECG: Atrial fibrillation 96bpm, no ischemic changes noted ECHO: ordered and pending Assessment: Hope Busby is a 67 y.o. female with a history of persistent atrial fibrillation ([id number] 4, on Xarelto), SVT , diabetes type 2, hypertension, hyperlipidemia and obesity who was transferred from [facility] for presyncope/syncope and symptomatic bradycardia. Ms. Busby was admitted to [facility] overnight after being transferred from [facility]. She has a history of atrial fibrillation, on xarelto and does not skip a dose. Her initial symptoms were dizziness, with chest discomfort and a headache which she experienced after getting back to her house from shopping earlier in the day. Glucose was normal. She felt dizzy and later found herself on the ground. Sheis unsure if she is lost consciousness during this time. She called EMS who found her to be bradycardic with heart rates 37-40 she is on diltiazem 240 mg and metoprolol 100 mg at home. She was given0.5mg of atropine by EMS on site. On arrival to [facility] ER ,she denies having any dizziness or chest discomfort but her rate was around 50-60's and her blood pressure improved to SBP of 110-120 mm of hg. Troponins negative.EKG consistent with bradycardia with a rate of 59/minute. CT head negative at OSH. Upon rounds this morning she had no focal deficits. It appears she is having some difficulty with garbled speech,however notes she has trouble getting words out when she is under pressure. ?? Symptomatic bradycardia with presyncope/syncope Patient reports she blacked out however remembers falling to the ground, unclear whether she lost consciousness has been taking diltiazem 240 mg and metoprolol 100 mg daily Heart rate found to be in the 30s-40s by EMS, given atropine ??3 with improvement in heart rate Diltiazem put on hold, patient continued on metoprolol for now as she had heart rates up to [address] head and lower extremity x-rays negative for acute abnormality at OSH, images requested to be sent Consult to neuro given dysarthria on exam Neuro - patient to be sent for a repeat head CT here Trops negative x 2 TSH-1.89 at out side hospital Echo pending Continue on telemetry monitoring She started having A fib with RVR and requiring metoprolol to control her heart rate. ?? Chest discomfort - NOS Thought to be in the setting of symptomatic bradycardia Will hold diltiazem Continue metoprolol 25 mg q6 Pending echocardiogram today, if new wall motion abnormalities found, may require an ischemic work up Troponins negative x 2 EKG without ischemic changes ?? Persistent A fib [id number] 4, on xarelto held at this time transitioned to heparin (now on hold while awaiting repeat head CT) She had multiple episodes of SVT before and diagnosed with A fib in 2014 Reports having a cardioversion and adenosine in the past On Xarelto for anticoagulation with [id number] score of 4. This is likely to be Tachy-Hernán syndrome May require a pacemaker within a few months ?? DM II PO medications held during inpatient stay Insulin sliding scale Continuous glucose monitoring Relatively well controlled as per her history and denies any recent hypoglycemic episodes to cause dizziness. Hx of urinary Retention S/p right hip arthroplasty She has been using her supra pubic catheter for the last 2 years. ?? Hypertension Noted to be hypotensive during her episodes of bradycardia. BP: (121-139)/(72-79) over the last 12 hours. Resumed on lisinopril Discussed with Satnam Brady MD Emily Lubell, SHO 01/08/2018 Associated attestation - Satnam Brady MD - 01/08/2018 3:10 PM EDT Cardiology Attending Addendum I shared this visit with Myra Crook APRN and guided the medical decision-making. Neurology will see patient regarding her history of intermittent dysarthria. Wiliam Benson RN - 01/08/2018 1:18 AM EDT Pt arrived from [facility] 0030 via ambulance. Denied CP or SOB. Placed on tele and noted on afib with HR 90s-110s. BP WNL, see flowsheet. Oriented to room and call puckett system and verbalized understanding. Dr. Rodriguez at bedside. Pt has a port/supra pubic catheter, made aware. documented in this encounter H&P Notes Megan Rodriguez MD - 01/08/2018 12:27 AM EDT Cardiology Admission H&P Patient Name: Hope Busby Date of : 1950 Age: 67 y.o. Hospital Admit Date: 01/08/2018 Inpatient Attending: Rafat Jerome MD PCP: Hoa Jacques APRN Presenting Diagnosis/Chief Complaint: Syncope from possible symptomatic bradycardia. Active Problem List: Active Hospital Problems Diagnosis ??? Symptomatic bradycardia ??? Syncope ??? Diabetes mellitus ??? Morbid obesity ??? Atrial fibrillation Resolved Hospital Problems Diagnosis Date Resolved No resolved problems to display. History of Present Illness: [facility] Mrs Hope Busby is a 67 y/o F with h/o Persistent A fib(on metoprolol,cardizem and Xarelto), SVT, DM-2,HTN,HLD and Obesity got transferred from [facility] ([facility]) for syncope and symptomatic bradycardia.She was completely asymptomatic until yesterday evening. She went f or shopping and came home on a bus and started feeling dizziness, chest discomfort and headache.Symptoms lasted for around 15-20 minutes, she checked her blood sugars and they were normal.She found herself on the ground and thought she lost consciousness for few minutes. She was still having symptomsof chest discomfort, headache and dizziness and felt her pulses were very low( as usually measures her pulses by herself ) and then she called EMS. On arrival of EMS she was found to be bradycardic with few episodes of pre syncope and dizziness and her heart rate was around 37-40 and hypotensive (SBP-80 mm of hg).She got 3 does of 0.5mg of atropine by EMS on site. On arrival to [facility] ER ,she denies having any dizziness or chest discomfort but her rate was around 50- 60's and her blood pressure improved to SBP of 110-120 mm of hg. Her troponins were negative and her ekg consistent with bradycardia with a rate of 59/minute. She denies any recent change of medications, denies any fever ,chills or rigors. Denies any palpitations,seizure like activity of bladder/bowel disturbances.She had few episodes of A fib with RVR in the past but denies having any episodEs of bradycardia.She was hospitalized to [facility] in last year for an episode of A fib with RVR and her dose of metoprolol was increased from 50mg to 100mg daily. Labs and Medications from [facility]; Labs; Wbc; 10.66 Hg; 10.9 Platelets; 394 Troponin I; <0.02(0.00-0.06) Mag; 1.3 Na; 139 K; 4.7 Co2; 25.3 BUN; 17 Creatinine; 1.35 LFT's; Normal Glucose; 215 TSH; 1.89 Medications given; Atropine; 0.5mg x 3 by EMS 2gm of magnesium Normal saline; 1 litre Chest X ray; Prominent interstitial markings. X Ray Right Tibia and Fibula;No acute abnormality X ray right ankle; Soft tissue swelling, no fracture CT Head; No acute intra cranial hemorrhage or abnormality Home medications; Omeprazole; 20mg Simvastatin; 20mg Xarelto; 20mg-last dose Thursday evening Cardizem; 240mg Metoprolol XL; 100mg daily Metformin; 1gm BID Insulin aspart Lantus 40 units Magnesium oxide; 400mg Past Medical History: Past Medical History: Diagnosis Date ??? Atrial fibrillation ??? Diabetes mellitus ??? GERD (gastroesophageal reflux disease) ??? Hypertension ??? Melanoma in situ s/p removal ??? Rheumatoid arthritis ??? SVT (supraventricular tachycardia) Previous Diagnostics: Stress:Had a exercise stress test 8-9 years back and had an episode of SVT during the test Echo:2014 Indication(s): Atrial fibrillation Rhythm: HR BP 131/76 ?? SUMMARY: ?? 1. The left ventricular chamber size is normal. There is mild septal hypertrophy of the left ventricle. There are no left ventricular segmental wall motion abnormalities. There is normal global left ventricular systolic function. The quantitative left ventricular ejection fraction by biplane Parry's method is 74%. Doppler assessment is consistent with elevated left sided filling pressure. 2. Right ventricular chamber size, wall thickness, and systolic function are within normal limits. 3. The left atrium is severely dilated (44 ml/m2) The right atrium is normal in size. 4. There is no hemodynamically significant valve disease. Cath:Never had one Surgical History/Problems: Past Surgical History: Procedure Laterality Date ??? SECTION ??? JOINT REPLACEMENT Significant Family History: Family History Problem Relation Age of Onset ??? Diabetes Mother ??? Heart Disease Mother ??? Multiple Sclerosis Sister Social History: Social History Social History ??? Marital status: Spouse name: N/A ??? Number of children: N/A ??? Years of education: N/A Occupational History ??? Not on file. Social History Main Topics ??? Smoking status: Former Smoker Types: Cigarettes Quit date: 06/22/1979 ??? Smokeless tobacco: Not on file Comment: per phone call 01/02/2011 ??? Alcohol use Yes Comment: 1 drink every 3-4 months ??? Drug use: Yes Special: Marijuana Comment: Rare use when Arthritis acts up ??? Sexual activity: Not on file Comment: Deferred Other Topics Concern ??? Not on file Social History Narrative REVIEW OF SYSTEMS: General ROS: No fatigue or weakness. Psychological: no anxiety / Depression Ophthalmic: No blurred vision or watery or red eyes. ENT: Negative for ear discharge or running nose or cold or throat swelling. Allergy: negative for itchy/watery eyes Heme: Negative for bleeding, bruising, fatigue, jaundice, night sweats Endocrine: negative for polydipsia/polyuria/ heat intolerance Respiratory: Denies any shortness of breath CVS: Chest tightness associated with dizziness and headache GI: No abd pain, change in bowel habits, or black or bloody stools Genitourinary: H/o trouble voiding with supra pubic catheter in place for the last 2 years(after hipsurgery) MSK: negative for joint pain, joint stiffness or joint swelling Neurological: Lost consciousness after that episode of dizziness Medications: Prescriptions Prior to Admission Medication Sig Dispense Refill Last Dose ??? rivaroxaban 20 mg Tablet Take 1 tablet by mouth every evening. With meals. (Please run Rx for pricing) 90 tablet 3 01/06/2018 at Unknown time ??? insulin aspart (NOVOLOG) Insulin Pen Check blood glucose before each meal. Inject 8 units of novolog by pen for breakfast, 8 units for lunch and 8 units for dinner. 3 mL 0 01/07/2018 at Unknown time ??? metoprolol succinate (TOPROL-XL) 50 mg Tablet Sustained Release 24 hr Take 3 tablets by mouth daily. (Patient taking differently: Take 100 mg by mouth daily.) 90 tablet 6 01/07/2018 at Unknown time ??? DILTiazem (TIAZAC) 120 mg Capsule, Sustained Release Take 1 capsule by mouth daily. (Patient taking differently: Take 240 mg by mouth daily.) 30 capsule 6 01/07/2018 at Unknown time ??? MAGNESIUM GLUCONATE ORAL Take 500 mg by mouth 3 times daily. 01/07/2018 at Unknown time ??? omeprazole (PRILOSEC) 20 mg Capsule, Delayed Release(E.C.) Take 20 mg by mouth daily. 01/07/2018 at Unknown time ??? simvastatin (ZOCOR) 20 mg tablet Take 20 mg by mouth nightly. 01/07/2018 at Unknown time ??? metFORMIN (GLUCOPHAGE) 500 mg tablet Take 1,000 mg by mouth 2 times daily (with meals). 1000 mg = 2 tablets 01/07/2018 at Unknown time ??? insulin glargine (LANTUS SOLOSTAR) Insulin Pen Inject 35 units every morning. Check blood glucose before breakfast If blood glucose before breakfast is over 150 for 2 days in a row, add 2 units of insulin to the next LANTUS dose. This increased dose becomes your new dose. Cont. to increase as needed. If blood glucose before breakfast is under 90 for 2 days in a row, subtract 2 units of insulin from the next LANTUS dose. This lower dose becomes your new dose, cont. to decrease as needed. (Patient taking differently: 40 Units. Inject 35 units every morning. Check blood glucose before breakfast If blood glucose before breakfast is over 150 for 2 days in a row, add 2 units of insulin to the next LANTUS dose. This increased dose becomes your new dose. Cont. to increase as needed. If blood glucose before breakfast is under 90 for 2 days in a row, subtract 2 units of insulin from the next LANTUS dose. This lower dose becomes your new dose, cont. to decrease as needed.) 3 mL 0 Allergies: Allergies Allergen Reactions ??? Trazodone hallucinations PHYSICAL EXAM: Last set of vital signs: BP 121/79 (BP Location (NBP): Right arm, Patient Position: Lying) Pulse (!) 110 Temp 36.7 ??C (98.1 ??F) (Oral) Resp 20 Ht 167.6 cm (5' 6) Wt 87.8 kg (193 lb 9 oz) SpO2 94% BMI 31.24 kg/m2 Gen/Constitutional: Alert, appears comfortable-obese. HEENT: ELMER, EOMI, No conjunctival pallor or scleral icterus Cardiac/CVS: Irregularly irregular, S1 S2 No murmurs JVP-9cm Pulm/Chest: No crackles or wheezing Abd/GI: No tenderness, mildly distended, soft, BS present, no organomegaly-supra pubic catheter in place Musculoskeletal: no edema . Pulses palpable, no calf tenderness Neuro/FIELD SERVICE TECH: AAO x 3, No evident deficits Skin/Integumentary: No rash Diagnostics: EKG; Atrial fibrillation, normal axis, low amplitude from her obesity LABS: Recent Results (from the past 24 hour(s)) POCT Glucose Result Value Ref Range POC Glucose 234 (H) 65 - 199 mg/dL Magnesium Result Value Ref Range Magnesium 0.67 (L) 0.69 - 1.07 mmol/L Phosphorus Result Value Ref Range Phosphorus 3.9 2.5 - 4.5 mg/dL TSH Result Value Ref Range TSH 1.37 0.27 - 4.20 mlU/ML pro-Brain Natriuretic Peptide Result Value Ref Range ProBNP 609 (H) <=125 pg/mL Hepatic Function Panel Result Value Ref Range Total Protein 6.9 6.1 - 8.0 gm/dL Albumin 3.6 3.2 - 5.2 gm/dL AST 11 0 - 30 unit/L ALT 13 0 - 30 unit/L Alk Phos 48 40 - 104 unit/L Total Bilirubin 0.2 0.2 - 1.3 mg/dL Bili, Direct 0.1 0.0 - 0.3 mg/dL Prothrombin Time Result Value Ref Range PT 13.1 (H) 9.4 - 12.5 sec INR 1.2 APTT Result Value Ref Range PTT 31 25 - 37 sec Lipid Panel Result Value Ref Range Chol, Total 118 mg/dL Triglycerides 51 mg/dL HDL 51 mg/dL LDL Cholesterol 57 mg/dL Chol/HDL Ratio 2.3 ratio Lipid Interpretation See Note Cardiac Enzymes (LEB/CGP) Result Value Ref Range Troponin-T <0.01 0.00 - 0.00 ng/mL CK, Total 107 0 - 160 unit/L Hemoglobin A1c Result Value Ref Range Hemoglobin A1C 10.8 (H) 4.3 - 5.6 % Est Avg Gluc 263 mg/dL LDL Cholesterol, Direct Result Value Ref Range LDL Chol Direct 62 mg/dL Hemogram Result Value Ref Range WBC 9.1 4.0 - 9.5 x10(3)/mcL RBC 4.22 4.00 - 5.21 x10(6)/mcL Hemoglobin 10.4 (L) 11.7 - 15.5 gm/dL Hematocrit 34.3 (L) 35.7 - 45.8 % MCV 81.3 (L) 82.6 - 94.4 fL MCH 24.6 (L) 27.1 - 32.0 pg MCHC 30.3 (L) 31.7 - 35.0 gm/dL Platelets 391 (H) 145 - 357 x10(3)/mcL RDWSD 43.3 37.0 - 46.0 fL RDWCV 14.8 (H) 11.5 - 14.1 % MPV 10.4 7.6 - 12.9 fL nRBC % Auto 0.0 % nRBC Abs Auto 0.000 0.000 - 0.000 x10(3)/mcL Differential, Automated Result Value Ref Range Neutrophils % 66.1 % Neutr Abs (ANC) 6.01 1.70 - 6.10 x10(3)/mcL Lymphocytes % 23.2 % Lymphocytes Abs 2.1 0.9 - 3.2 x10(3)/mcL Monocytes % 9.0 % Monocyte Abs 0.8 0.3 - 0.9 x10(3)/mcL Eosinophils % 0.7 % Eosinophils Abs 0.1 0.0 - 0.4 x10(3)/mcL Basophils % 0.7 % Basophils Abs 0.1 0.0 - 0.1 x10(3)/mcL Immature Gran % 0.30 % Haley Gran Abs 0.03 0.00 - 0.04 x10(3)/mcL BMP w/fasting Glucose Result Value Ref Range Glucose Fasting 241 (H) 65 - 99 mg/dL BUN 16 8 - 18 mg/dL Creatinine 0.91 0.70 - 1.20 mg/dL Sodium 137 135 - 145 mmol/L Potassium 4.3 3.5 - 5.0 mmol/L Chloride 98 98 - 107 mmol/L CO2 23 22 - 31 mmol/L Anion Gap 16 (H) 5 - 15 mmol/L Calcium 8.8 8.5 - 10.5 mg/dL eGFR 64 >=60 mL/min/1.73 m?? eGFR 75 >=60 mL/min/1.73 m?? A&P: Mrs Hope Busby is a 67 y/o F with h/o Persistent A fib(on metoprolol,cardizem and Xarelto), SVT, DM-2,HTN,HLD and Obesity got transferred from [facility] ([facility]) for syncope and symptomatic bradycardia.She got 3 doses of atropine by EMS at her home with improvement of her heart rate and blood pressure. Denies any further episodes of chest pressure or dizziness.She is almost back to her baseline and denies any complaints at this time. 1; Symptomatic bradycardia with syncope; Mostly from her medications which include high dose of cardizem 240mg and metoprolol 100mg. She was responsive to atropine and heart now went up to low 100's. Will hold tasia blocking agents for now.Will start on low dose of single dose once heart rate started to go up significantly. She had CT head and lower extremity X rays' and all of them were negative for any acute abnormality. Trending troponins TSH-1.89 at out side hospital TTE Tele monitoring Needs ZIO patch for evaluation of her rhythm disturbances. No evidene of pauses or symptomatic bradycardia for the last few hours and unable to find rhythm strips from EMS. She started having A fib with RVR and requiring metoprolol to control her heart rate. Will request EP evalution 2; Chest discomfort with symptomatic bradycardia; Her symptoms are mostly from symptomatic bradycardia but because of the multiple risk factors and she denies having any recent ischemic work up. Trending troponins Aspirin 81mg Lipitor-20mg TTE Will get non ambulating nuclear stress test before discharge. 3; Persistent A fib; She had multiple episodes of SVT before and diagnosed with A fib in 2013. She denies having any cardioversion , she has been taking X arelto for anticoagulation with [id number] score of 4. Her metoprolol and cardizem are held because of her bradycardia but she will need atleast one rate controlling medication with in few hours. Holding X arelto and starting on heparin as a precaution -if she needs any pacemaker. She seems like developing Tachy-Hernán syndrome and she will needs pacemaker with in few months. 4; DM-2 ; Relatively well controlled as per her history and denies any recent hypoglycemic episodes to cause dizziness. Will hold metformin and started on sliding scale of insulin. 5;H/O Urinary retention after right hip arthroplasty; She has been using her supra pubic catheter for the last 2 years. 6; Hypotension with known pt of hypertension;She was mostly hypotensive during her episodes of bradycardia. Her blood pressure will be significantly increased in few hours, started on lisinopril for blood pressure control as we discontinued cardizem and metoprolol because of her bradycardia. 7; Code status; Wants to be full code.Discused with her in detail about the plan of care. She wants her daughter Miss Katharina Busby as her next of kin (her ph no; [phone]). Megan Rodriguez MD Provider #: [id number] 01/08/2018 documented in this encounter Miscellaneous Notes Plan of Care - Amber Burns RN - 01/11/2018 3:05 AM EDT Problem: Patient Care Overview Goal: Plan of Care Review 01/10/18 1808 01/11/18 0301 Plan of Care Review Progress progress toward functional goals as expected -- Coping/Psychosocial Plan Of Care Reviewed With -- patient OUTCOME EVALUATION NOTE: OUTCOME SUMMARY: Overall good night, pt slept most of the night. Afib continues with rates 80's resting and 110-120'swith activity. PLAN MOVING FORWARD: Discharge today with [facility]iop[facility] INDIVIDUALIZED FALL PREVENTION INTERVENTIONS: Patient-specific fall risk factors per assessment: [current deficits]: SP cath, tele Assistance [level of assistance required for transfers and ambulation]: Stand by with walker Supervision [direct monitoring required during toileting and ADLs]: indirect Surveillance [continuous indirect monitoring]: Tele, pulse ox Patient-specific fall prevention interventions for sensory deficits provided, if applicable: [X] N/A [facility] GOAL OUTCOME EVALUATION: Goal: Fall Prevention-Safe Patient Handling 01/11/18 0200 Restraint Interventions Safety Promotion/Fall Prevention activity supervised;safety round/check completed Positioning Body Position supine, head elevated Activity Activity Type activity adjusted per tolerance Activity Assistance Provided assistance, stand-by Assistive Device Utilized front-wheel walker Goal: Infection Control 01/10/181999 Safety Interventions Isolation Precautions standard precautions maintained Infection Prevention single patient room provided Coping Strategies Supportive Measures active listening utilized;positive reinforcement provided Plan of Care - Skye Paris RN - 01/10/2018 6:15 PM EDT Problem: Patient Care Overview Goal: Plan of Care Review Outcome: Ongoing (Interventions Implemented as Appropriate) 01/10/18 1808 Plan of Care Review Progress progress toward functional goals as expected Coping/Psychosocial Plan Of Care Reviewed With patient OUTCOME EVALUATION NOTE: OUTCOME SUMMARY: Pt had a good day, continues to be afib on tele, resting rated 70-90, with activity, HR up to 130, pt otherwise asymptomatic. Pt ambulated around unit a few times, tolerated well. Right ankle pain controlled with ice and tylenol. PLAN MOVING FORWARD: DC with zio patch tomorrow INDIVIDUALIZED FALL PREVENTION INTERVENTIONS: Patient-specific fall risk factors per assessment: [current deficits]: unfamiliar envio, suprapubic catheter, generalized weakness Assistance [level of assistance required for transfers and ambulation]: SBA with front wheel walker Supervision [direct monitoring required during toileting and ADLs]: ind Surveillance [continuous indirect monitoring]: Tele, continuous pulse ox, purposeful rounding Patient-specific fall prevention interventions for sensory deficits provided, if applicable: [X] N/A [facility]PG GOAL OUTCOME EVALUATION: Ongoing Goal: Fall Prevention-Safe Patient Handling 01/10/18 0827 Johns Fall Risk History of Falling 25 Secondary Diagnosis 15 Ambulatory Aids 15 Intravenous Therapy/Heparin/Saline Lock 20 Gait/Transferring 10 Mental Status 0 Score 85 OTHER Johns Fall Risk High Restraint Interventions Safety Promotion/Fall Prevention activity supervised;elopement precautions initiated;fall preventionprogram maintained;safety round/check completed;nonskid shoes/slippers when out of bed Positioning Body Position up in chair Activity Activity Type activity adjusted per tolerance Activity Assistance Provided assistance, stand-by Assistive Device Utilized front-wheel walker Plan of Care - Alana Santoyo RN - 01/10/2018 4:56 AM EDT Problem: Patient Care Overview Goal: Plan of Care Review Outcome: Ongoing (Interventions Implemented as Appropriate) 01/09/18181401/09/182029 Plan of Care Review Progress progress toward functional goals as expected -- Coping/Psychosocial Plan Of Care Reviewed With -- patient OUTCOME EVALUATION NOTE: OUTCOME SUMMARY: VSS, pt c/o right ankle pain, refused PRN acetaminophen, ice pack applied with goodeffect. SP cath with scant amount of drainage, area cleaned, intra-dry placed under skin folds. Pt able to rest between care. PLAN MOVING FORWARD: Discharge planning as appropriate INDIVIDUALIZED FALL PREVENTION INTERVENTIONS: Patient-specific fall risk factors per assessment: [current deficits]: Telemetry, pulse ox, unfamiliar environment Assistance [level of assistance required for transfers and ambulation]: SBA, non-stick socks/slippers Supervision [direct monitoring required during toileting and ADLs]: Eyes on, arms reach, hand on Surveillance [continuous indirect monitoring]: Hourly purposeful rounding, call puckett in reach Patient-specific fall prevention interventions for sensory deficits provided, if applicable: Lighting adjusted for task/safety, glasses CPG GOAL OUTCOME EVALUATION: Ongoing Goal: Fall Prevention-Safe Patient Handling Outcome: Ongoing (Interventions Implemented as Appropriate) 01/09/182029 Johns Fall Risk History of Falling 25 Secondary Diagnosis 15 Ambulatory Aids 15 Intravenous Therapy/Heparin/Saline Lock 20 Gait/Transferring 10 Mental Status 0 Score 85 OTHER Johns Fall Risk High Restraint Interventions Safety Promotion/Fall Prevention activity supervised;fall prevention program maintained;nonskid shoes/slippers when out of bed;safety round/check completed Positioning Body Position up in chair Activity Activity Type activity adjusted per tolerance Activity Assistance Provided assistance, stand-by Assistive Device Utilized front-wheel walker Goal: Infection Control Outcome: Ongoing (Interventions Implemented as Appropriate) 01/09/18 2030 Safety Interventions Isolation Precautions standard precautions maintained Infection Prevention rest/sleep promoted;single patient room provided;environmental surveillance performed Coping Strategies Supportive Measures active listening utilized;decision-making supported;positive reinforcement provided;self-reflection promoted;verbalization of feelings encouraged Plan of Care - Skye Paris RN - 01/09/2018 6:24 PM EDT Problem: Patient Care Overview Goal: Plan of Care Review Outcome: Ongoing (Interventions Implemented as Appropriate) 01/09/181814 Plan of Care Review Progress progress toward functional goals as expected Coping/Psychosocial Plan Of Care Reviewed With patient OUTCOME EVALUATION NOTE: OUTCOME SUMMARY: Pt denies CP or SOB. BG high throughout the day, Insulin sliding scale orders increased per pt home routine with good effect, see MAR/ results review. Heparin gtt discontinued, see MAR. Hot pack applied to right ankle and secured with parul bandage with good effect. PLAN MOVING FORWARD: DC tomorrow? Zio patch? INDIVIDUALIZED FALL PREVENTION INTERVENTIONS: Patient-specific fall risk factors per assessment: [current deficits]: unfamiliar enviro, suprapubiccatheter, tele leads, continuous pulse ox Assistance [level of assistance required for transfers and ambulation]: SBA with walker Supervision [direct monitoring required during toileting and ADLs]: SBA Surveillance [continuous indirect monitoring]: Tele, continuous pulse ox, purposeful rounding Patient-specific fall prevention interventions for sensory deficits provided, if applicable: [X] N/A [facility]PG GOAL OUTCOME EVALUATION: Ongoing Goal: Fall Prevention-Safe Patient Handling 01/09/18 0829 01/09/18 0900 Johns Fall Risk History of Falling 25 -- Secondary Diagnosis 15 -- Ambulatory Aids 15 -- Intravenous Therapy/Heparin/Saline Lock 20 -- Gait/Transferring 10 -- Mental Status 0 -- Score 85 -- OTHER Johns Fall Risk High -- Restraint Interventions Safety Promotion/Fall Prevention activity supervised;fall prevention program maintained;safety round/check completed -- Positioning Body Position -- up in chair Activity Activity Type activity adjusted per tolerance -- Activity Assistance Provided assistance, stand-by -- Assistive Device Utilized front-wheel walker -- Goal: Infection Control 01/09/18 0829 Safety Interventions Isolation Precautions standard precautions maintained Infection Prevention barrier precautions utilized;cohorting utilized;environmental surveillance performed;personal protective equipment utilized;equipment surfaces disinfected;rest/sleep promoted;single patient room provided;visitors restricted/screened Coping Strategies Supportive Measures active listening utilized;decision-making supported;positive reinforcement provided;problem solving facilitated;relaxation techniques promoted;self-care encouraged;self-reflection promoted;self-responsibility promoted Plan of Care - Wiliam Benson RN - 01/09/2018 5:42 AM EDT Problem: Patient Care Overview Goal: Plan of Care Review Outcome: Ongoing (Interventions Implemented as Appropriate) 01/08/18199901/09/18 0536 Plan of Care Review Progress -- progress toward functional goals as expected Coping/Psychosocial Plan Of Care Reviewed With patient -- . OUTCOME EVALUATION NOTE: OUTCOME SUMMARY: Uneventful night. Denied CP and sob. Slept in between care. VS WNL, see flowsheet. Heparin drip maintained per order. Afib on tele, HR 80-105 with rare PVCs/pair PVCs. PLAN MOVING FORWARD: Monitor HR. Discharge planning. INDIVIDUALIZED FALL PREVENTION INTERVENTIONS: Patient-specific fall risk factors per assessment: [current deficits]: Generalized weakness, tele wires, new environment Assistance [level of assistance required for transfers and ambulation]: Standby with walker Supervision [direct monitoring required during toileting and ADLs]: Standby with call puckett within reach Surveillance [continuous indirect monitoring]: Tele, purposeful rounding, call puckett in reach Patient-specific fall prevention interventions for sensory deficits provided, if applicable: no [facility] GOAL OUTCOME EVALUATION: ongoing Goal: Fall Prevention-Safe Patient Handling Outcome: Ongoing (Interventions Implemented as Appropriate) 01/08/181999 Johns Fall Risk History of Falling 25 Secondary Diagnosis 15 Ambulatory Aids 15 Intravenous Therapy/Heparin/Saline Lock 20 Gait/Transferring 10 Mental Status 0 Score 85 OTHER Johns Fall Risk High Restraint Interventions Safety Promotion/Fall Prevention activity supervised;safety round/check completed;nonskid shoes/slippers when out of bed Positioning Body Position independent Activity Activity Type activity adjusted per tolerance;ambulated to bathroom Activity Assistance Provided assistance, 1 person Assistive Device Utilized standard walker Plan of Care - Sánchez Solis RN - 01/08/2018 6:56 PM EDT OUTCOME EVALUATION NOTE: OUTCOME SUMMARY: Pt MD Tristan's questioned garbled speech on rounds, otherwise no neuro deficits. Heparin paused and Head CT performed, no intracranial process seen. Heparin gtt restarted. Pt able to ambulate w/walker to bathroom w/o incident. No episodes of bradycardia or hypotension. No acute events. PLAN MOVING FORWARD: Assess readiness for discharge INDIVIDUALIZED FALL PREVENTION INTERVENTIONS: Patient-specific fall risk factors per assessment: [current deficits]: Weakness Assistance [level of assistance required for transfers and ambulation]: Stand-by w/walker Supervision [direct monitoring required during toileting and ADLs]: Stand-by Surveillance [continuous indirect monitoring]: Purposeful rounding Patient-specific fall prevention interventions for sensory deficits provided, if applicable: [X] No [facility] GOAL OUTCOME EVALUATION: Consult Note - Augie-Rigoberto Britt MD - 01/08/2018 10:01 AM EDT Neurology Admission History and Physical Patient name: Hope Busby Date of : 1950 PCP: Hoa Jacques APRN Onset of symptoms (if witnessed) or time of symptom discovery: 730 AM Last known well: 700 AM CC: Dysarthria HPI: Hope Busby is a 67 y.o. female with past medical history significant for diabetes mellitus, GERD, hypertension, hyperlipidemia, rheumatoid arthritis, and atrial fibrillation (on Xarelto) who is currently admitted to the cardiology service for tachybradycardia syndrome. Patient presents as a transfer from outside hospital from an episode of syncope. Notes that at timesof heart rate is down to the 40s and at times comes to A. fib with RVR in the 140s. Timing is not quite clear, but sometime this morning on evaluation the patient had garbled speech. Patient notes that this is not necessarily new for her and often occurs when she feels anxious/pressured. No other focal neurological deficits were noted on exam at the time of evaluation. Of note CT hadobtained at outside hospital (currently not in our system at the time of this note) was negative fora acute hemorrhage. Initial recommendations prior to seeing the patient were to obtain a CT head. Upon discussion with the patient, she notes that her speech difficulty happens on and off even priorto this hospitalization. She notes that when she talking to someone and she is excited or annoyed itcan happen. She notes that speaking becomes harder when there are 3-4 people around. She notes that her first problem with her speech was about 35 years ago. Notes that right behind her eyes and top of her head and down through the neck, she feels some tightening up and pain. Denies history of headaches and migraines. Notes that she has lacrimation and green seeds when this happens. Denies nausea and vomiting. Patient notes auras, which she describes as circles coming in from all directions which are whitish/silver in color but can be pinkish/bluish as well. Patient also notes that sometimes her imagination with the pain in the head runs wild (i pictureall these circles coming in and I'm just amazed of how it happens. I'm not psych or looney or anything). Sometimes they last for 20 minutes but can last up to 3 hours. Tylenol and advil don't touch itso she just waits till they go away. Sun makes the headaches worse once they have come on. Also notes a trigger for headaches being in a crowd. Sleep: 4.5 - 8 hours of sleep usually, patient notes that she snores. Currently takes xarelto for atrial fibrillation. Notes that she does not miss a dose. Has a pet parrot. Current Medications: Scheduled Meds: ??? sodium chloride 0.9 % 5 mL Intravenous BID ??? sodium chloride 0.9 % 5 mL Intravenous Q12H ??? famotidine 20 mg Oral Daily ??? docusate sodium 100 mg Oral BID ??? simvastatin 20 mg Oral Nightly ? ? insulin lispro 2-8 Units Subcutaneous 4 Times Daily AC & HS ??? insulin glargine 20 Units Subcutaneous Q24H ??? lisinopril 10 mg Oral Daily ??? aspirin 81 mg Oral Daily ??? magnesium oxide 400 mg Oral BID ??? metoprolol tartrate 25 mg Oral Q6H DANNI ??? dilTIAZem 30 mg Oral Q6H DANNI Continuous Infusions: ??? heparin (porcine) 1,000 Units/hr (01/08/18 0218) PRN Meds:.sodium chloride 0.9 %, lidocaine, nitroGLYcerin, sodium chloride 0.9 %, acetaminophen, dextrose 50% OR glucagon (human recombinant), heparin (porcine) AND heparin (porcine) Past Medical & Surgical History: Past Medical History: Diagnosis Date ??? Atrial fibrillation ??? Diabetes mellitus ??? GERD (gastroesophageal reflux disease) ??? Hypertension ??? Melanoma in situ s/p removal ??? Rheumatoid arthritis ??? SVT (supraventricular tachycardia) Past Surgical History: Procedure Laterality Date ??? SECTION ??? JOINT REPLACEMENT Home Medications: No current facility-administered medications on file prior to encounter. Current Outpatient Prescriptions on File Prior to Encounter Medication Sig Dispense Refill ??? rivaroxaban 20 mg Tablet Take 1 tablet by mouth every evening. With meals. (Please run Rx for pricing) 90 tablet 3 ??? insulin aspart (NOVOLOG) Insulin Pen Check blood glucose before each meal. Inject 8 units of novolog by pen for breakfast, 8 units for lunch and 8 units for dinner. 3 mL 0 ??? metoprolol succinate (TOPROL-XL) 50 mg Tablet Sustained Release 24 hr Take 3 tablets by mouth daily. (Patient taking differently: Take 100 mg by mouth daily.) 90 tablet 6 ??? DILTiazem (TIAZAC) 120 mg Capsule, Sustained Release Take 1 capsule by mouth daily. (Patient taking differently: Take 240 mg by mouth daily.) 30 capsule 6 ??? MAGNESIUM GLUCONATE ORAL Take 500 mg by mouth 3 times daily. ??? omeprazole (PRILOSEC) 20 mg Capsule, Delayed Release(E.C.) Take 20 mg by mouth daily. ??? simvastatin (ZOCOR) 20 mg tablet Take 20 mg by mouth nightly. ??? metFORMIN (GLUCOPHAGE) 500 mg tablet Take 1,000 mg by mouth 2 times daily (with meals). 1000 mg = 2 tablets ??? insulin glargine (LANTUS SOLOSTAR) Insulin Pen Inject 35 units every morning. Check blood glucose before breakfast If blood glucose before breakfast is over 150 for 2 days in a row, add 2 units of insulin to the next LANTUS dose. This increased dose becomes your new dose. Cont. to increase as needed. If blood glucose before breakfast is under 90 for 2 days in a row, subtract 2 units of insulin from the next LANTUS dose. This lower dose becomes your new dose, cont. to decrease as needed. (Patient taking differently: 40 Units. Inject 35 units every morning. Check blood glucose before breakfast If blood glucose before breakfast is over 150 for 2 days in a row, add 2 units of insulin to the next LANTUS dose. This increased dose becomes your new dose. Cont. to increase as needed. If blood glucose before breakfast is under 90 for 2 days in a row, subtract 2 units of insulin from the next LANTUS dose. This lower dose becomes your new dose, cont. to decrease as needed.) 3 mL 0 Allergy: Allergies Allergen Reactions ??? Trazodone hallucinations Family History: Family History Problem Relation Age of Onset ??? Diabetes Mother ??? Heart Disease Mother ??? Multiple Sclerosis Sister Social History: Smoking: Former smoker EtOH: Occasionally Illicits: Denies Living situation: Lives alone and has a pet parrot Occupation: Retired and on disability Social History Social History ??? Marital status: Spouse name: N/A ??? Number of children: N/A ??? Years of education: N/A Occupational History ??? Retired Social History Main Topics ??? Smoking status: Former Smoker Types: Cigarettes Quit date: 06/22/1979 ??? Smokeless tobacco: Not on file Comment: per phone call 01/02/2011 ??? Alcohol use Yes Comment: 1 drink every 3-4 months ??? Drug use: Yes Special: Marijuana Comment: Rare use when Arthritis acts up ??? Sexual activity: Not on file Comment: Deferred Other Topics Concern ??? 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 Review of systems: Constitutional: No fevers or chills Eyes: No vision changes, no diplopia, no blurry vision ENT: No rhinorrhea or pharyngitis, no meningismus CV: No chest pain or palpitations Resp: No cough, no shortness of breath GI: No nausea, vomiting, diarrhea or constipation : No dysuria, no incontinence Heme: No bleeding or bruising Endo: No polyuria or cold intolerance Neuro: See HPI Psych: No depression [x] Review of systems otherwise negative Physical Exam: Vitals: Temp: [36.7 ??C (98.1 ??F)] Heart Rate: [97-110] Resp: [20-21] BP: (121-139)/(75-79) SpO2: [94 %-96 %] Heart Rate from SPO2: [128 bpm] Gen: Patient of apparent stated age, well nourished, well developed, awake, alert, NAD HEENT: Supple, no meningismus, no carotid bruit, no occipital tenderness noted; missing all teeth-nodentures in place at time of assessment CV: Regular rate, no murmurs, gallops, or rubs appreciated Resp: CTA B/L with good respiratory effort Abd: +normoactive bowel sounds, soft, nontender, nondistended Ext: No edema. No bony deformity Neuro Exam: MS: AAOx4, clear language and did not have a good quality finding words, no aphasia,, minimal dysarthria (? Dentures not in place), follows commands appropriately CN: PERRL, EOMI, visual michel full Facial sensation intact, no facial asymmetry Hearing intact to voice Palate elevates symmetrically, tongue protrudes midline SCM and trap strength intact Motor: Normal bulk and tone. Able to keep hands up per NIHSS for 10 seconds each without drift UE: 5/5 R, 5/5 L Arm abduction at shoulder 5/5 R, 5/5 L Elbow extension 5/5 R, 5/5 L Elbow flexion 5/5 R, 5/5 L Occupational Health And Safety Manager LE: 5/5 R, 5/5 L Hip flexion 5/5 R, 5/5 L Knee extension 5/5 R, 5/5 L Knee flexion 5/5 R, 5/5 L Foot dorsiflexion 5/5 R, 5/5 L Foot plantar flexion Sensation: Intact to light touch, temperature, and vibration throughout Reflexes: DTRs 2+ R, 2+ L Biceps 2+ R, 2+ L Brachioradialis 2+ R, 2+ L Triceps 2+ R, 2+ L Patellar 1+ R, 2+ L Achilles tendon Toes - R down, L down Coordination: Finger to nose intact, no dysmetria Rapid alternating movements & finger tapping smooth and symmetric Heel-padilla intact No tremor Gait: Not assessed NIH Stroke Scale: (bold applicable choices) NIH Stroke Scale at Initial Evaluation: 1.a. Level of consciousness: 0-Alert 1-Not alert, but arousable with minimal stimulation 2-Not alert, requires repeat stimulation to attend 3-Coma 1.b. Ask patient the month and their age: 0-Answers both correctly 1-Answers one correctly 2-Both incorrect 1.c. Ask patient to open and close eyes: 0-Obeys both correctly 1-Obeys one correctly 2-Both incorrect 2. Best gaze (horizontal eye movement): 0-Normal 1-Partial gaze palsy 2-Forced deviation 3. Visual field testin-No visual field loss 1-Partial hemianopia 2-Complete hemianopia 3-Bilateral hemianopia (blind including cortical blindness) 4. Facial paresis (Ask patient to show teeth or raise eyebrows and close eyes tightly): 0-Normal symmetrical movement 1-Minor paralysis (flattened nasolabial fold, asymmetry on smiling) 2-Partial paralysis (total or near paralysis of lower face) 3-Complete paralysis of one or both sides (absence of facial movement in the upper and lower face) 5. Motor function right arm: 0-Normal (extends arm 90 degrees for 10 seconds without drift) 1-Drift 2-Some effort against gravity 3-No effort against gravity 4-No movement UT-Untestable (Joint fused or limb amputated) 5. Motor function- left arm: 0-Normal (extends arm 90 degrees for 10 seconds without drift) 1-Drift 2-Some effort against gravity 3-No effort against gravity (but baseline) 4-No movement UT-Untestable (Joint fused or limb amputated) 6. Motor function right le-Normal (extends leg 30 degrees for 5 seconds without drift) 1-Drift 2-Some effort against gravity 3-No effort against gravity 4-No movement UT-Untestable (Joint fused or limb amputated) 6. Motor function-left le-Normal (extends leg 30 degrees for 5 seconds without drift) 1-Drift 2-Some effort against gravity 3-No effort against gravity 4-No movement UT-Untestable (Joint fused or limb amputated) 7. Limb ataxia: 0-No ataxia 1-Present in one limb 2-Present in two limbs 8. Sensory (Use pinprick to test arms, legs, trunk and face compare side to side): 0-Normal 1-Mild to moderate decrease in sensation 2-Severe to total sensory loss 9. Best language (describe picture, name items, read sentences): 0-No aphasia 1-Mild to moderate aphasia 2-Severe aphasia 3-Mute 10. Dysarthria (read several words): 0-Normal articulation 1-Mild to moderate slurring of words 2-Near unintelligible or unable to speak UT-Intubated or other physical barrier 11. Extinction and inattention: 0-Normal 1-Inattention or extinction to bilateral simultaneous in one of the sensory modalities 2-Severe igor-inattention or igor-inattention to more than one modality TOTAL SCORE: 1 Labs: Recent Results (from the past 24 hour(s)) POCT Glucose Result Value Ref Range POC Glucose 234 (H) 65 - 199 mg/dL Magnesium Result Value Ref Range Magnesium 0.67 (L) 0.69 - 1.07 mmol/L Phosphorus Result Value Ref Range Phosphorus 3.9 2.5 - 4.5 mg/dL TSH Result Value Ref Range TSH 1.37 0.27 - 4.20 mlU/ML pro-Brain Natriuretic Peptide Result Value Ref Range ProBNP 609 (H) <=125 pg/mL Hepatic Function Panel Result Value Ref Range Total Protein 6.9 6.1 - 8.0 gm/dL Albumin 3.6 3.2 - 5.2 gm/dL AST 11 0 - 30 unit/L ALT 13 0 - 30 unit/L Alk Phos 48 40 - 104 unit/L Total Bilirubin 0.2 0.2 - 1.3 mg/dL Bili, Direct 0.1 0.0 - 0.3 mg/dL Prothrombin Time Result Value Ref Range PT 13.1 (H) 9.4 - 12.5 sec INR 1.2 APTT Result Value Ref Range PTT 31 25 - 37 sec Lipid Panel Result Value Ref Range Chol, Total 118 mg/dL Triglycerides 51 mg/dL HDL 51 mg/dL LDL Cholesterol 57 mg/dL Chol/HDL Ratio 2.3 ratio Lipid Interpretation See Note Cardiac Enzymes (LEB/CGP) Result Value Ref Range Troponin-T <0.01 0.00 - 0.00 ng/mL CK, Total 107 0 - 160 unit/L Hemoglobin A1c Result Value Ref Range Hemoglobin A1C 10.8 (H) 4.3 - 5.6 % Est Avg Gluc 263 mg/dL LDL Cholesterol, Direct Result Value Ref Range LDL Chol Direct 62 mg/dL Hemogram Result Value Ref Range WBC 9.1 4.0 - 9.5 x10(3)/mcL RBC 4.22 4.00 - 5.21 x10(6)/mcL Hemoglobin 10.4 (L) 11.7 - 15.5 gm/dL Hematocrit 34.3 (L) 35.7 - 45.8 % MCV 81.3 (L) 82.6 - 94.4 fL MCH 24.6 (L) 27.1 - 32.0 pg MCHC 30.3 (L) 31.7 - 35.0 gm/dL Platelets 391 (H) 145 - 357 x10(3)/mcL RDWSD 43.3 37.0 - 46.0 fL RDWCV 14.8 (H) 11.5 - 14.1 % MPV 10.4 7.6 - 12.9 fL nRBC % Auto 0.0 % nRBC Abs Auto 0.000 0.000 - 0.000 x10(3)/mcL Differential, Automated Result Value Ref Range Neutrophils % 66.1 % Neutr Abs (ANC) 6.01 1.70 - 6.10 x10(3)/mcL Lymphocytes % 23.2 % Lymphocytes Abs 2.1 0.9 - 3.2 x10(3)/mcL Monocytes % 9.0 % Monocyte Abs 0.8 0.3 - 0.9 x10(3)/mcL Eosinophils % 0.7 % Eosinophils Abs 0.1 0.0 - 0.4 x10(3)/mcL Basophils % 0.7 % Basophils Abs 0.1 0.0 - 0.1 x10(3)/mcL Immature Gran % 0.30 % Haley Gran Abs 0.03 0.00 - 0.04 x10(3)/mcL BMP w/fasting Glucose Result Value Ref Range Glucose Fasting 241 (H) 65 - 99 mg/dL BUN 16 8 - 18 mg/dL Creatinine 0.91 0.70 - 1.20 mg/dL Sodium 137 135 - 145 mmol/L Potassium 4.3 3.5 - 5.0 mmol/L Chloride 98 98 - 107 mmol/L CO2 23 22 - 31 mmol/L Anion Gap 16 (H) 5 - 15 mmol/L Calcium 8.8 8.5 - 10.5 mg/dL eGFR 64 >=60 mL/min/1.73 m?? eGFR 75 >=60 mL/min/1.73 m?? POCT Glucose Result Value Ref Range POC Glucose 272 (H) 65 - 199 mg/dL Diagnostic Tests and Imaging: Head CT w/out: [address] Reid IMPRESSION No acute intracranial process. Swallow Screen Results: PASSED (All YES responses) Time 1123AM Assessment and Plan: Hope Busby is a 67 y.o. female with past medical history significant for diabetes mellitus, GERD, hypertension, hyperlipidemia, rheumatoid arthritis, and atrial fibrillation (on Xarelto) who is currently admitted to the cardiology service for tachybradycardia syndrome. CT head obtained here at [facility] has been reviewed and there is no noted hemorrhage. During my assessment of the patient, I noted minimal dysarthria that appears to be more due to her lack of dentition than a central cause. I did not not any aphasia and she was able to tell me her thought clearly and wasable to perform the tasks for aphasia assessment on the NIHSS without difficulty. She notes a 35 year history of difficulty getting her thoughts/words out when she is surrounded by 3-4 people or when she is excited/annoyed. Taking her atrial fibrillation into account, in addition to her exam, I do notbelieve that further workup is needed at this time to rule out a stroke. If her speech becomes more d ysarthric or she develops weakness on one side vs the other, numbness/tingling on one side vs the other or facial droop, then I think it would be reasonable to obtain a repeat head CT. The above has been discussed with the primary team. Please feel free to page us at the number below if you have any questions or concerns about the above or if you have a new consult question for our vascular neurology team regarding the patient. Thrombolytics were considered and not given secondary to diagnosis unclear . # Possible dysarthria -Neuro check & vitals Q4hrs / Q4hrs for 24 hours then ok to stop -CT head - obtained The above was discussed with Dr. Mendoza prior to the signing of this note. Rigoberto Carrillo MD Neurology Resident - PGY-2 Vascular Neurology (Stroke) team pager: [phone] 01/08/18 Standard [facility] Swallow Screen: This screen is to be used to document a Swallow Screen prior to ingestion of water and /or oral medications for patients with possible stroke (Ischemic or Hemorrhagic). Exclusion Criteria: A swallow screen is not to be performed on patients who: ?? have a decreased level of consciousness. ?? are not able to follow simple commands. ?? are hypoxic, or have increasing O2 needs or may need to be intubated. ?? have a G/J tube for nutrition. ?? have a recent history of a swallowing disorder *These patients should remain NPO (HOLD MEDS) and the physician notified for further orders. Swallow Screen Using Water: None of the Exclusion Criteria as mentioned above is present? Patient is alert and sitting upright? Able to close lips and tongue is midline? Able to cough, manage oral secretions with dry voice? ONLY IF ABOVE ALL YES, Able to swallow 30 ml of water without coughing, displaying a wet voice or choking? Repeat Twice. ??? If YES to all responses, proceed with water and oral medications as well as diet as medical provider deems appropriate. Consider STEAM BOX TENDER consult for full evaluation and diet recommendations. ??? If NO to any of the responses, stop immediately, keep patient NPO and notify physician. ??? Associated attestation - Dinah Mendoza MD - 01/24/2018 6:18 AM EDT I evaluated the patient with the Neurology Residents during bedside rounds on 01/08/2018. I have reviewed the medical records and patient's history, as well as the resident???s and student's history andexamination findings and I agree with the details as written. My neurologic examination confirms theresident???s findings. We formulated the assessment and plan after a detailed discussion, as documented. Initial Assessments - Andi Encinas MSW - 01/08/2018 9:13 AM EDT Office of Care Management Initial Assessment GERMAN Romero reviewed record and discussed patient with Care Team. Source of Information: Patient, Chart, Treatment Team Introduced self/reviewed role; services accepted. Reason for Hospitalization: Syncope from possible symptomatic bradycardia. Past Medical History: Diagnosis Date ??? Atrial fibrillation ??? Diabetes mellitus ??? GERD (gastroesophageal reflux disease) ??? Hypertension ??? Melanoma in situ s/p removal ??? Rheumatoid arthritis ??? SVT (supraventricular tachycardia) Hospitalizations Within the Past 30 Days: n9one Anticipated Length Of Stay (If known): 3 days Current Decision-Making Capacity: A&OX4 Advance Care Planning: none- will consider Current Coping/Education/Information Needs: none Current Functional Ability: SBA Functional Status Prior to Admission: Independent in ADL's Home Environment: skilled nursing housing with elevator Social & Family Supports/Community Resources: 4 children, grandchildren, sister, friends and neighbors Behavioral Health History: had a very bad depression when my SO shot and killed himself Substance Use/Abuse: ??? Smoking status: Former Smoker ? Types: Cigarettes ? Quit date: 06/22/1979 ??? Smokeless tobacco: Not on file ? Comment: per phone call 01/02/2011 ??? Alcohol use Yes ? Comment: 1 drink every 3-4 months ??? Drug use: Yes ? Special: Marijuana ? Comment: Rare use when Arthritis acts up Other Pertinent/Service Specific Information:none Health/Prescription Coverage: Primary Insurance: MEDICARE Secondary Insurance: MEDICAID [place] Prescription Coverage:yes Preferred Pharmacy: [facility] Primary Care Provider: Hoa Jacques, FAMILY PRACTICE NURSE PRACTITIONER [phone] Patient/Caregiver Goals of Treatment: I want to keep my heart level Potential Needs for Transition of Care: Rehab/SNF: NA Home Health: NA DME: NA Dialysis:NA Community Resources: Available Transportation: RCT Anticipated Barriers to Discharge/Special Considerations: none Assessment: 67 y/o F with h/o Persistent A fib(on metoprolol,cardizem and Xarelto), SVT, DM-2,HTN,HLD and Obesity got transferred from [facility]) for syncope and symptomatic bradycardia Plan: Likely home with assistance and follow up A member of the Care Management team will continue to monitor progress, follow for continuity of care and assist with transition of care planning. GERMAN Romero Pager: [phone] documented in this encounter Plan of Treatment Scheduled Orders Name Type Priority Associated Diagnoses Order S chedule EKG 12 Lead ECG Routine Symptomatic bradycardia One Time for 1 Occurrences starting 01/11/2018 unti l 01/11/2018 Scheduled Referrals Name Type Priority Associated Diagnoses Order S chedule Referral to Outpatient Referral Routine Symptomatic Ordered: General Internal bradycardia 01/11/2018 Medicine documented as of this encounter Procedures Procedure Name Priority Date/Time Associated Comments Diagnosis DATABASE MODELER SCAN 01/12/2018 12:00 Res ults for this AM EDT procedure are i n the results section. POCT GLUCOSE Routine 01/11/2018 11:51 Results for this AM EDT procedure are i n the results section. EKG 12-LEAD STAT 01/11/2018 11:06 Symptomatic Results for this AM EDT bradycardia procedure are i n the results section. POCT GLUCOSE Routine 01/11/2018 7:24 Results for this AM EDT procedure are i n the results section. BMP W/FASTING GLUCOSE Routine 01/11/2018 4:37 Res ults for this AM EDT procedure are i n the results section. MAGNESIUM Routine 01/11/2018 4:37 Results for this AM EDT procedure are i n the results section. POCT GLUCOSE Routine 01/10/2018 8:34 Results for this PM EDT procedure are i n the results section. POCT GLUCOSE Routine 01/10/2018 4:37 Results for this PM EDT procedure are i n the results section. POCT GLUCOSE Routine 01/10/2018 1:49 Results for this PM EDT procedure are i n the results section. POCT GLUCOSE Routine 01/10/2018 11:23 Results for this AM EDT procedure are i n the results section. POCT GLUCOSE Routine 01/10/2018 7:10 Results for this AM EDT procedure are i n the results section. BMP W/FASTING GLUCOSE Routine 01/10/2018 5:28 Res ults for this AM EDT procedure are i n the results section. HEMOGRAM Routine 01/10/2018 5:28 Results for this AM EDT procedure are i n the results section. DIFFERENTIAL, AUTOMATED Routine 01/10/2018 5:28 R esults for this AM EDT procedure are i n the results section. LAVENDER TUBE HOLD Routine 01/10/2018 5:28 Result s for this AM EDT procedure are i n the results section. MAGNESIUM Routine 01/10/2018 5:28 Results for this AM EDT procedure are i n the results section. POCT GLUCOSE Routine 01/09/2018 8:29 Results for this PM EDT procedure are i n the results section. POCT GLUCOSE Routine 01/09/2018 4:36 Results for this PM EDT procedure are i n the results section. POCT GLUCOSE Routine 01/09/2018 1:51 Results for this PM EDT procedure are i n the results section. POCT GLUCOSE Routine 01/09/2018 11:33 Results for this AM EDT procedure are i n the results section. POCT GLUCOSE Routine 01/09/2018 10:35 Results for this AM EDT procedure are i n the results section. HEPARIN STAT 01/09/2018 8:47 Results for this (UNFRACTIONATED) LEVEL AM EDT proce dure are in the results section. BMP W/FASTING GLUCOSE Routine 01/09/2018 8:47 Res ults for this AM EDT procedure are i n the results section. HEMOGRAM Routine 01/09/2018 8:47 Results for this AM EDT procedure are i n the results section. DIFFERENTIAL, AUTOMATED Routine 01/09/2018 8:47 R esults for this AM EDT procedure are i n the results section. CBC (WITH DIFF) Routine 01/09/2018 8:47 AM EDT MAGNESIUM Routine 01/09/2018 8:47 Results for this AM EDT procedure are i n the results section. POCT GLUCOSE Routine 01/09/2018 7:42 Results for this AM EDT procedure are i n the results section. DATABASE MODELER SCAN 01/09/2018 12:00 Res ults for this AM EDT procedure are i n the results section. POCT GLUCOSE Routine 01/08/2018 9:00 Results for this PM EDT procedure are i n the results section. HEPARIN STAT 01/08/2018 6:38 Results for this (UNFRACTIONATED) LEVEL PM EDT proce dure are in the results section. POCT GLUCOSE Routine 01/08/2018 6:05 Results for this PM EDT procedure are i n the results section. POCT GLUCOSE Routine 01/08/2018 4:20 Results for this PM EDT procedure are i n the results section. CARDIAC ENZYMES Routine 01/08/2018 3:29 Results f or this ([facility]) PM EDT procedure are i n the results section. POCT GLUCOSE Routine 01/08/2018 12:04 Results for this PM EDT procedure are i n the results section. CT HEAD WO CONTRAST STAT 01/08/2018 11:09 Resu lts for this (GENERIC) AM EDT procedure are i n the results section. ECHOCARDIOGRAM COMPLETE Routine 01/08/2018 9:42 Symptomatic R esults for this W CONTRAST AM EDT bradycardia procedure are i n the results section. HEPARIN STAT 01/08/2018 9:41 Results for this (UNFRACTIONATED) LEVEL AM EDT proce dure are in the results section. HEMOGRAM Routine 01/08/2018 9:41 Results for this AM EDT procedure are i n the results section. DIFFERENTIAL, AUTOMATED Routine 01/08/2018 9:41 R esults for this AM EDT procedure are i n the results section. CARDIAC ENZYMES Routine 01/08/2018 9:41 Results f or this ([facility]) AM EDT procedure are i n the results section. CBC (WITH DIFF) Routine 01/08/2018 9:41 AM EDT POCT GLUCOSE Routine 01/08/2018 7:56 Results for this AM EDT procedure are i n the results section. EKG 12-LEAD Routine 01/08/2018 1:33 Symptomatic Results for this AM EDT bradycardia procedure are i n the results section. BMP W/FASTING GLUCOSE Routine 01/08/2018 1:29 Res ults for this AM EDT procedure are i n the results section. HEMOGRAM Routine 01/08/2018 1:29 Results for this AM EDT procedure are i n the results section. DIFFERENTIAL, AUTOMATED Routine 01/08/2018 1:29 R esults for this AM EDT procedure are i n the results section. CARDIAC ENZYMES Routine 01/08/2018 1:29 Results f or this ([facility]) AM EDT procedure are i n the results section. APTT Routine 01/08/2018 1:29 Results for this AM EDT procedure are i n the results section. PROTHROMBIN TIME Routine 01/08/2018 1:29 Results for this AM EDT procedure are i n the results section. CBC (WITH DIFF) Routine 01/08/2018 1:29 AM EDT TSH Routine 01/08/2018 1:29 Results for this AM EDT procedure are i n the results section. PHOSPHORUS Routine 01/08/2018 1:29 Results for this AM EDT procedure are i n the results section. PRO-BRAIN NATRIURETIC Routine 01/08/2018 1:29 Res ults for this PEPTIDE AM EDT procedure are i n the results section. MAGNESIUM Routine 01/08/2018 1:29 Results for this AM EDT procedure are i n the results section. LDL CHOLESTEROL, DIRECT Routine 01/08/2018 1:29 R esults for this AM EDT procedure are i n the results section. HEMOGLOBIN A1C Routine 01/08/2018 1:29 Results fo r this AM EDT procedure are i n the results section. HEPATIC FUNCTION PANEL Routine 01/08/2018 1:29 Re sults for this AM EDT procedure are i n the results section. LIPID PANEL (REFLEX Routine 01/08/2018 1:29 Resul ts for this DIRECT LDL) AM EDT procedure are i n the results section. POCT GLUCOSE Routine 01/08/2018 1:28 Results for this AM EDT procedure are i n the results section. documented in this encounter Results SCAN DOC: DATABASE MODELER (01/12/2018 12:00 AM EDT) Narrative 01/12/2018 12:00 AM EDT This result has an attachment that is no t available. Ordered by an unspecified provider. Scanning Provider MEDIA MGR SCAN EXT ORDR/RSLT [place] (01/11/2018 3:10 PM EDT) Specimen (Source) [...] collection. ____ Interpreted by Ibrahima Miller MD, [facility] Myra Cobb FAMILY PRACTICE NURSE PRACTITIONER CARDIAC SERVICES ORDERABLES (ABNORMAL) POCT Glucose (01/11/2018 11:51 AM EDT) athologist Signature POC Glucose 248 (H) 65 - 199 [facility] mg/dL [facility] Comment: Supplemental ranges: <140 mg/dL before meals <180 mg/dL all other times of the day Specimen Anatomical Collection Method Collection Time Receive d Time (Source) Location / / Volume Laterality Blood specimen 01/11/2018 11:51 8 (specimen) AM EDT 11:51 AM EDT Satnam Brady MD POINT OF CARE TEST ORDERABLE S Performing Organization Address City/State/[place] [address] EKG 12 Lead (01/11/2018 11:06 AM EDT) Component Value Ref Range Test Analysis Performed Pathologis t Method Time At Signature Ventricular rate 113 BPM MUSE SYSTEM QRS Duration 76 ms MUSE SYSTEM Q-T Interval 324 ms MUSE SYSTEM QTC Calculated 444 ms MUSE SYSTEM (Bezet) Calculated R [place] 9 degrees MUSE SYSTEM Calculated T [place] 6 degrees MUSE SYSTEM INTERPRETATION Atrial fibrillation with rapid ventricular response MUSE SYSTEM Low voltage QRS Abnormal ECG When compared with ECG of 08-JAN-2018 01:33, Nonspecific T wave abnormality, worse in Inferior leads Confirmed by fellow MD Pizano Kristy ([id number]) on 01/11/2018 2:47:42 PM Confirmed by José Manuel Jett MD ([id number]) on 01/11/2018 3:46:00 PM Specimen Anatomical Collection Method Collection Time Receive d Time (Source) Location / / Volume Laterality 01/11/2018 11:06 01/11/2018 3:46 AM EDT PM EDT Megan Rodriguez MD ECG ORDERABLES Performing Organization Address City/State/ZIP Code Phon e Number MUSE SYSTEM POCT Glucose (01/11/2018 7:24 AM EDT) P athologist Signature POC Glucose 161 65 - 199 [facility] mg/dL [facility] Comment: Supplemental ranges: <140 mg/dL before meals <180 mg/dL all other times of the day Specimen Anatomical Collection Method Collection Time Receive d Time (Source) Location / / Volume Laterality Blood specimen 01/11/2018 7:24 AM 018 7:24 (specimen) EDT AM EDT Satnam Brady MD POINT OF CARE TEST ORDERABLE S Performing Organization Address City/[facility]/[place] [address] BMP w/fasting Glucose (01/11/2018 4:37 AM EDT) P athologist Signature Glucose 91 65 - 99 [facility] Fasting mg/dL [facility] Comment: ?Fasting* Glucose Interpretive C riteria Normal ?65-99 mg/dL Impaired Fasting glucose ?100-125 mg/dL Consistent with Diabetes Mellitus ? >or= 126 mg/dL *Fasting is defined as no caloric intake for at least 8 hours In the absence of unequivocal hypergly cemia a plasma glucose value of >or= 126 mg/dL should be repeated on a subseq u day. Diagnosis and Classification of Diabetes Mellitus, Position Statement from the [place] [employer]. ??Diabete s Care, Volume 33, Supplement 1, Jun 2009 BUN 15 8 - 18 mg/dL [facility] Creatinine 0.72 0.70 - 1.20 mg/dL [facility] Sodium 138 135 - 145 mmol/L [facility] Potassium 4.4 3.5 - 5.0 mmol/L [facility] Comment: Please note: ??Patients with WBC >100,00 0 may have falsely elevated Potassium levels. ??For accurate Potassium quantif ication in these patients send serum separator tube (gold top) for subsequent determinations. ??Contact the Clinical Chemistry Laboratory if there are any qu estions. Chloride 102 98 - 107 mmol/L [facility] CO2 22 22 - 31 mmol/L [facility] Anion Gap 14 5 - 15 mmol/L [facility] Calcium 9.2 8.5 - 10.5 mg/dL [facility] Estimated GFR 85 >=60 mL/min/1.73 m?? [facility] Comment: The eGFR was calculated using the CKD-EP I equation. As with all creatinine based estimates of kidney function, eGFR values calculated with the CKD-EPI equation are not accurate in patients wi th acute kidney failure, extremes of body mass or the acutely ill. [email or web address] [email or web address] eGFR 99 >=60 mL/min/1.73 m?? [facility] Comment: The eGFR was calculated using the CKD-EP I equation. As with all creatinine based estimates of kidney function, eGFR values calculated with the CKD-EPI equation are not accurate in patients wi th acute kidney failure, extremes of body mass or the acutely ill. [email or web address] Specimen Anatomical Collection Method Collection Time Receive d Time (Source) Location / / Volume Laterality Blood specimen 01/11/2018 4:37 AM 018 4:55 (specimen) EDT AM EDT Resulting Agency Comment Spec In Lab Michelle Torres APRN CHEMISTRY ORDERABLES Performing Organization Address City/State/[place] [address] (ABNORMAL) Magnesium (01/11/2018 4:37 AM EDT) athologist Signature Magnesium 0.68 (L) 0.69 - 1.07 [facility] mmol/L [facility] Specimen Anatomical Collection Method Collection Time Receive d Time (Source) Location / / Volume Laterality Blood specimen 01/11/2018 4:37 AM 018 4:55 (specimen) EDT AM EDT Resulting Agency Comment Spec In Lab Micehlle Torres APRN CHEMISTRY ORDERABLES Performing Organization Address City/State/ZIP Code Phon e Number [address] POCT Glucose (01/10/2018 8:34 PM EDT) athologist Signature POC Glucose 176 65 - 199 [facility] mg/dL [facility] Comment: Supplemental ranges: <140 mg/dL before meals <180 mg/dL all other times of the day Specimen Anatomical Collection Method Collection Time Receive d Time (Source) Location / / Volume Laterality Blood specimen 01/10/2018 8:34 PM 018 8:34 (specimen) EDT PM EDT Satnam Brady MD POINT OF CARE TEST ORDERABLE S Performing Organization Address City/[facility]/ZIP Code Phon e Number [address] POCT Glucose (01/10/2018 4:37 PM EDT) athologist Signature POC Glucose 173 65 - 199 [facility] mg/dL [facility] Comment: Supplemental ranges: <140 mg/dL before meals <180 mg/dL all other times of the day Specimen Anatomical Collection Method Collection Time Receive d Time (Source) Location / / Volume Laterality Blood specimen 01/10/2018 4:37 PM 018 4:37 (specimen) EDT PM EDT Satnam Brady MD POINT OF CARE TEST ORDERABLE S Performing Organization Address City/[facility]/ZIP Code Phon e Number [address] (ABNORMAL) POCT Glucose (01/10/2018 1:49 PM EDT) athologist Signature POC Glucose 239 (H) 65 - 199 [facility] [place] mg/dL [facility] Comment: Supplemental ranges: <140 mg/dL before meals <180 mg/dL all other times of the day Specimen Anatomical Collection Method Collection Time Receive d Time (Source) Location / / Volume Laterality Blood specimen 01/10/2018 1:49 PM 018 1:49 (specimen) EDT PM EDT Satnam Brady MD POINT OF CARE TEST ORDERABLE S Performing Organization Address City/State/[place] [address] (ABNORMAL) POCT Glucose (01/10/2018 11:23 AM EDT) P athologist Signature POC Glucose 260 (H) 65 - [address] [facility] mg/dL [facility] Comment: Supplemental ranges: <140 mg/dL before meals <180 mg/dL all other times of the day Specimen Anatomical Collection Method Collection Time Receive d Time (Source) Location / / Volume Laterality Blood specimen 01/10/2018 11:23 8 (specimen) AM EDT 11:23 AM EDT Satnam Brady MD POINT OF CARE TEST ORDERABLE S Performing Organization Address City/State/[place] [address] (ABNORMAL) POCT Glucose (01/10/2018 7:10 AM EDT) P athologist Signature POC Glucose 235 (H) 65 - 199 [facility] mg/dL [facility] Comment: Supplemental ranges: <140 mg/dL before meals <180 mg/dL all other times of the day Specimen Anatomical Collection Method Collection Time Receive d Time (Source) Location / / Volume Laterality Blood specimen 01/10/2018 7:10 AM 018 7:10 (specimen) EDT AM EDT Satnam Brady MD POINT OF CARE TEST ORDERABLE S Performing Organization Address City/State/[place] [address] (ABNORMAL) Differential, Automated (01/10/2018 5:28 AM EDT) [facility] gist Method Time Signature Neutrophils % 43.8 % [facility] Neutr Abs (ANC) 3.45 1.70 - [facility] 6.10 [facility] x10(3)/[facility] LABORATORY Lymphocytes % 39.8 % [facility] Lymphocytes Abs 3.1 0.9 - 3.2 [facility] x10(3)/[facility] LABORATORY Monocytes % 12.5 % [facility] Monocyte Abs 1.0 (H) 0.3 - 0.9 [facility] x10(3)/[facility] LABORATORY Eosinophils % 2.9 % [facility] Eosinophils Abs 0.2 0.0 - 0.4 [facility] x10(3)/[facility] LABORATORY Basophils % 0.6 % [facility] Basophils Abs 0.0 0.0 - 0.1 [facility] x10(3)/[facility] LABORATORY Immature Gran % 0.40 % [facility] Comment: Immature granulocytes(IG's)percentage an d absolute count will include metamyelocytes, myelocytes, and promyelo cytes. Blood smears from CBCs yielding IG's will be scanned manually for concor dance. If this scan disagrees with the automated IG or if promyelocytes are not ed, a manual differential will be performed. Haley Gran Abs 0.03 0.00 - 0.04 x10(3)/[facility] Specimen Anatomical Collection Method Collection Time Receive d Time (Source) Location / / Volume Laterality Blood specimen Venous Draw / 01/10/2018 5:28 AM 2017 5:43 (specimen) Unknown EDT AM EDT Resulting Agency Comment Spec In Lab Satnam Brady MD HEMATOLOGY ORDERABLES Performing Organization Address City/State/[place] [address] (ABNORMAL) Hemogram (01/10/2018 5:28 AM EDT) Analysis Performed At Patho logist Time Signature WBC 7.9 4.0 - 9.5 [facility] x10(3)/[facility] LABORATORY RBC 4.54 4.00 - [facility] 5.21 [facility] x10(6)/[facility] LABORATORY Hemoglobin 11.6 (L) 11.7 - [facility] 15.5 gm/dL [facility] LABORATORY Hematocrit 37.3 35.7 - [facility] 45.8 % [facility] LABORATORY MCV 82.2 (L) 82.6 - [facility] 94.4 [facility] LABORATORY MCH 25.6 (L) 27.1 - [facility] 32.0 pg [facility] LABORATORY MCHC 31.1 (L) 31.7 - [facility] 35.0 gm/dL [facility] LABORATORY Platelets 371 (H) 145 - 357 [facility] x10(3)/[facility] LABORATORY RDWSD 44.8 37.0 - [facility] 46.0 [facility] LABORATORY RDWCV 15.0 (H) 11.5 - [facility] 14.1 % [facility] LABORATORY MPV 10.7 7.6 - 12.9 [facility] LABORATORY nRBC % Auto 0.0 % [facility] LABORATORY nRBC Abs Auto 0.000 0.000 [facility] x10(3)/[facility] LABORATORY Specimen Anatomical Collection Method Collection Time Receive d Time (Source) Location / / Volume Laterality Blood specimen Venous Draw / 01/10/2018 5:28 AM 2017 5:43 (specimen) Unknown EDT AM EDT Resulting Agency Comment Spec In Lab Satnam Brady MD HEMATOLOGY ORDERABLES Performing Organization Address City/State/[place] [address] Lavender Tube HOLD (01/10/2018 5:28 AM EDT) [facility] gist Method Time Signature Lavender Hold Sample in [facility] lab. [facility] LABORATORY Specimen Anatomical Collection Method Collection Time Receive d Time (Source) Location / / Volume Laterality Blood specimen Venous Draw / 01/10/2018 5:28 AM 2017 5:43 (specimen) Unknown EDT AM EDT Michelle Torres APRN HEMATOLOGY ORDERABLES Performing Organization Address City/State/[place] [address] (ABNORMAL) BMP w/fasting Glucose (01/10/2018 5:28 AM EDT) athologist Signature Glucose 194 (H) 65 - 99 [facility] Fasting mg/dL [facility] LABORATORY Comment: ?Fasting* Glucose Interpretive C riteria Normal ?65-99 mg/dL Impaired Fasting glucose ?100-125 mg/dL Consistent with Diabetes Mellitus ? >or= 126 mg/dL *Fasting is defined as no caloric intake for at least 8 hours In the absence of unequivocal hypergly cemia a plasma glucose value of >or= 126 mg/dL should be repeated on a subseq uent day. Diagnosis and Classification of Diabetes Mellitus, Position Statement from the [place] [employer]. ??Diabete s Care, Volume 33, Supplement 1, Jun 2009 BUN 19 (H) 8 - 18 mg/dL [facility] LABORATORY Creatinine 0.66 (L) 0.70 - 1.20 mg/dL [facility] LABORATORY Sodium 138 135 - 145 mmol/L [facility] LABORATORY Potassium 4.0 3.5 - 5.0 mmol/L [facility] LABORATORY Comment: Please note: ??Patients with WBC >100,00 0 may have falsely elevated Potassium levels. ??For accurate Potassium quantif ication in these patients send serum separator tube (gold top) for subsequent determinations. ??Contact the Clinical Chemistry Laboratory if there are any qu estions. Chloride 101 98 - 107 mmol/L [facility] LABORATORY CO2 24 22 - 31 mmol/L [facility] LABORATORY Anion Gap 13 5 - 15 mmol/L [facility] LABORATORY Calcium 9.1 8.5 - 10.5 mg/dL [facility] LABORATORY Estimated GFR 90 >=60 mL/min/1.73 m?? [facility] LABORATORY Comment: The eGFR was calculated using the CKD-EP I equation. As with all creatinine based estimates of kidney function, eGFR values calculated with the CKD-EPI equation are not accurate in patients wi th acute kidney failure, extremes of body mass or the acutely ill. [email or web address] eGFR 104 >=60 mL/min/1.73 m?? [facility] LABORATORY Comment: The eGFR was calculated using the CKD-EP I equation. As with all creatinine based estimates of kidney function, eGFR values calculated with the CKD-EPI equation are not accurate in patients wi th acute kidney failure, extremes of body mass or the acutely ill. [email or web address] CITYnkf Specimen Anatomical Collection Method Collection Time Receive d Time (Source) Location / / Volume Laterality Blood specimen 01/10/2018 5:28 AM 018 5:43 (specimen) EDT AM EDT Resulting Agency Comment Spec In Lab Michelle Torres APRN CHEMISTRY ORDERABLES Performing Organization Address City/State/[place] [address] (ABNORMAL) Magnesium (01/10/2018 5:28 AM EDT) P athologist Signature Magnesium 0.62 (L) 0.69 - 1.07 [facility] mmol/L [facility] LABORATORY Specimen Anatomical Collection Method Collection Time Receive d Time (Source) Location / / Volume Laterality Blood specimen 01/10/2018 5:28 AM 018 5:43 (specimen) EDT AM EDT Resulting Agency Comment Spec In Lab Michelle Torres APRN CHEMISTRY ORDERABLES Performing Organization Address City/State/[place] [address] (ABNORMAL) POCT Glucose (01/09/2018 8:29 PM EDT) P athologist Signature POC Glucose 220 (H) 65 - 199 [facility] mg/dL [facility] LABORATORY Comment: Supplemental ranges: <140 mg/dL before meals <180 mg/dL all other times of the day Specimen Anatomical Collection Method Collection Time Receive d Time (Source) Location / / Volume Laterality Blood specimen 01/09/2018 8:29 PM 018 8:29 (specimen) EDT PM EDT Satnam Brady MD POINT OF CARE TEST ORDERABLE S Performing Organization Address City/State/[place] [address] POCT Glucose (01/09/2018 4:36 PM EDT) athologist Signature POC Glucose 181 65 - 199 [facility] mg/dL [facility] LABORATORY Comment: Supplemental ranges: <140 mg/dL before meals <180 mg/dL all other times of the day Specimen Anatomical Collection Method Collection Time Receive d Time (Source) Location / / Volume Laterality Blood specimen 01/09/2018 4:36 PM 018 4:36 (specimen) EDT PM EDT Satnam Brady MD POINT OF CARE TEST ORDERABLE S Performing Organization Address City/State/[place] [address] (ABNORMAL) POCT Glucose (01/09/2018 1:51 PM EDT) athologist Signature POC Glucose 291 (H) 65 - 199 [facility] mg/dL [facility] LABORATORY Comment: Supplemental ranges: <140 mg/dL before meals <180 mg/dL all other times of the day Specimen Anatomical Collection Method Collection Time Receive d Time (Source) Location / / Volume Laterality Blood specimen 01/09/2018 1:51 PM 018 1:51 (specimen) EDT PM EDT Satnam Brady MD POINT OF CARE TEST ORDERABLE S Performing Organization Address City/State/[place] [address] (ABNORMAL) POCT Glucose (01/09/2018 11:33 AM EDT) athologist Signature POC Glucose 298 (H) 65 - 199 [facility] mg/dL [facility] LABORATORY Comment: Supplemental ranges: <140 mg/dL before meals <180 mg/dL all other times of the day Specimen Anatomical Collection Method Collection Time Receive d Time (Source) Location / / Volume Laterality Blood specimen 01/09/2018 11:33 8 (specimen) AM EDT 11:33 AM EDT Satnam Brady MD POINT OF CARE TEST ORDERABLE S Performing Organization Address City/State/[place] [address] (ABNORMAL) POCT Glucose (01/09/2018 10:35 AM EDT) P athologist Signature POC Glucose 329 (H) 65 - 199 [facility] mg/dL [facility] LABORATORY Comment: Supplemental ranges: <140 mg/dL before meals <180 mg/dL all other times of the day Specimen Anatomical Collection Method Collection Time Receive d Time (Source) Location / / Volume Laterality Blood specimen 01/09/2018 10:35 8 (specimen) AM EDT 10:35 AM EDT Satnam Brady MD POINT OF CARE TEST ORDERABLE S Performing Organization Address City/[facility]/[place] [address] (ABNORMAL) BMP w/fasting Glucose (01/09/2018 8:47 AM EDT) P athologist Signature Glucose 315 (H) 65 - 99 [facility] Fasting mg/dL [facility] LABORATORY Comment: ?Fasting* Glucose Interpretive C riteria Normal ?65-99 mg/dL Impaired Fasting glucose ?100-125 mg/dL Consistent with Diabetes Mellitus ? >or= 126 mg/dL *Fasting is defined as no caloric intake for at least 8 hours In the absence of unequivocal hypergly cemia a plasma glucose value of >or= 126 mg/dL should be repeated on a subseq uent day. Diagnosis and Classification of Diabetes Mellitus, Position Statement from the [place] [employer]. ??Diabete s Care, Volume 33, Supplement 1, Jun 2009 BUN 12 8 - 18 mg/dL [facility] LABORATORY Creatinine 0.91 0.70 - 1.20 mg/dL [facility] LABORATORY Sodium 137 135 - 145 mmol/L [facility] LABORATORY Potassium 4.2 3.5 - 5.0 mmol/L [facility] LABOR[facility]ORY Comment: Please note: ??Patients with WBC >100,00 0 may have falsely elevated Potassium levels. ??For accurate Potassium quantif ication in these patients send serum separator tube (gold top) for subsequent determinations. ??Contact the Clinical Chemistry Laboratory if there are any qu estions. Chloride 96 (L) 98 - 107 mmol/L [facility]OR[facility] CO2 24 22 - 31 mmol/L [facility]OR[facility] Anion Gap 17 (H) 5 - 15 mmol/L [facility] LABORATORY Calcium 8.7 8.5 - 10.5 mg/dL [facility] LABORATORY Estimated GFR 64 >=60 mL/min/1.73 m?? [facility] Comment: The eGFR was calculated using the CKD-EP I equation. As with all creatinine based estimates of kidney function, eGFR values calculated with the CKD-EPI equation are not accurate in patients wi th acute kidney failure, extremes of body mass or the acutely ill. [email or web address] [place]f eGFR 75 >=60 mL/min/1.73 m?? [facility] Comment: The eGFR was calculated using the CKD-EP I equation. As with all creatinine based estimates of kidney function, eGFR values calculated with the CKD-EPI equation are not accurate in patients wi th acute kidney failure, extremes of body mass or the acutely ill. [email or web address] Specimen Anatomical Collection Method Collection Time Receive d Time (Source) Location / / Volume Laterality Blood specimen 01/09/2018 8:47 AM 018 9:19 (specimen) EDT AM EDT Resulting Agency Comment Spec In Lab Michelle Torres APRN CHEMISTRY ORDERABLES Performing Organization Address City/State/ZIP Code Phon e Number [address] (ABNORMAL) Magnesium (01/09/2018 8:47 AM EDT) athologist Signature Magnesium 0.65 (L) 0.69 - 1.07 [facility] mmol/L [facility] LABORATORY Specimen Anatomical Collection Method Collection Time Receive d Time (Source) Location / / Volume Laterality Blood specimen 01/09/2018 8:47 AM 018 9:19 (specimen) EDT AM EDT Resulting Agency Comment Spec In Lab Michelle Torres FAMILY PRACTICE NURSE PRACTITIONER CHEMISTRY ORDERABLES Performing Organization Address City/State/ZIP Code Phon e Number [address] Heparin (unfractionated) Level (01/09/2018 8:47 AM EDT) athologist Signature Heparin UFH 0.78 IU/mL [facility] LABORATORY Comment: Guidelines for therapeutic unfractionate d heparin levels are summarized below. Heparin (Anti-Xa) levels should be deter mined in a plasma sample that has been drawn 6 hours after a dose change i.e., steady-state has been reached. DRUG ?Dos ing Schedule ? [facility] Steady-State ?Heparin (Anti-Xa) Levels (Units/mL) Unfractionated ?Continuous inf usion ?0.3-0.7 Heparin ?0.3-0.6 fo r some neurology indications Specimen Anatomical Collection Method Collection Time Receive d Time (Source) Location / / Volume Laterality Blood specimen 01/09/2018 8:47 AM 018 9:19 (specimen) EDT AM EDT Resulting Agency Comment Spec In Lab Myra Cobb FAMILY PRACTICE NURSE PRACTITIONER HEMATOLOGY ORDERABLES Performing Organization Address City/State/ZIP Code Phon e Number [place] [id number] Differential, Automated (01/09/2018 8:47 AM EDT) P athologist Signature Neutrophils % 49.3 % [facility] LABORATORY Neutr Abs (ANC) 3.72 1.70 - [facility] 6.10 [facility] x10(3)/[facility] LABORATORY Lymphocytes % 38.4 % [facility] LABORATORY Lymphocytes Abs 2.9 0.9 - 3.2 [facility] x10(3)/[facility] LABORATORY Monocytes % 8.3 % [facility] LABORATORY Monocyte Abs 0.6 0.3 - 0.9 [facility] x10(3)/[facility] LABORATORY Eosinophils % 3.2 % [facility] LABORATORY Eosinophils Abs 0.2 0.0 - 0.4 [facility] x10(3)/[facility] LABORATORY Basophils % 0.7 % [facility] LABORATORY Basophils Abs 0.0 0.0 - 0.1 [facility] x10(3)/[facility] LABORATORY Immature Gran % 0.10 % [facility] LABORATORY Comment: Immature granulocytes(IG's)percentage an d absolute count will include metamyelocytes, myelocytes, and promyelo cytes. Blood smears from CBCs yielding IG's will be scanned manually for concor dance. If this scan disagrees with the automated IG or if promyelocytes are not ed, a manual differential will be performed. Haley Gran Abs 0.01 0.00 - 0.04 x10(3)/[facility] LABORATORY Specimen Anatomical Collection Method Collection Time Receive d Time (Source) Location / / Volume Laterality Blood specimen 01/09/2018 8:47 AM 018 9:19 (specimen) EDT AM EDT Resulting Agency Comment Spec In Lab Myra Cobb FAMILY PRACTICE NURSE PRACTITIONER HEMATOLOGY ORDERABLES Performing Organization Address City/[facility]/[place] [address] (ABNORMAL) Hemogram (01/09/2018 8:47 AM EDT) Analysis Performed At Patho logist Time Signature WBC 7.6 4.0 - 9.5 [facility] x10(3)/[facility] LABORATORY RBC 4.92 4.00 - [facility] 5.21 [facility] x10(6)/[facility] LABORATORY Hemoglobin 12.3 11.7 - [facility] 15.5 gm/dL [facility] LABORATORY Hematocrit 40.3 35.7 - [facility] 45.8 % [facility] LABORATORY MCV 81.9 (L) 82.6 - [facility] 94.4 [facility] LABORATORY MCH 25.0 (L) 27.1 - [facility] 32.0 pg [facility] LABORATORY MCHC 30.5 (L) 31.7 - [facility]/dL [facility] LAB[facility]ATORY Platelets 320 145 - 357 [facility] x10(3)/[facility] LABORATORY RDWSD 44.8 37.0 - [facility]0 [facility] LABORATORY RDWCV 15.0 (H) 11.5 - [facility] 14.1 % [facility] LABORATORY MPV 11.9 7.6 - 12.9 [facility] LABORATORY nRBC % Auto 0.0 % [facility] LABORATORY nRBC Abs Auto 0.000 0.000 - [facility] x10(3)/[facility] LABORATORY Specimen Anatomical Collection Method Collection Time Receive d Time (Source) Location / / Volume Laterality Blood specimen 01/09/2018 8:47 AM 018 9:19 (specimen) EDT AM EDT Resulting Agency Comment Spec In Lab Myra Cobb APRN HEMATOLOGY ORDERABLES Performing Organization Address City/State/[place] [address] (ABNORMAL) POCT Glucose (01/09/2018 7:42 AM EDT) P athologist Signature POC Glucose 292 (H) 65 - 199 [facility] mg/dL [facility] LABORATORY Comment: Supplemental ranges: <140 mg/dL before meals <180 mg/dL all other times of the day Specimen Anatomical Collection Method Collection Time Receive d Time (Source) Location / / Volume Laterality Blood specimen 01/09/2018 7:42 AM 018 7:42 (specimen) EDT AM EDT Satnam Brady MD POINT OF CARE TEST ORDERABLE S Performing Organization Address [facility]/ZIP [place] [address] SCAN DOC: DATABASE MODELER (01/09/2018 12:00 AM EDT) Narrative 01/09/2018 12:00 AM EDT This result has an attachment that is no t available. Ordered by an unspecified provider. Scanning Provider MEDIA MGR SCAN EXT ORDR/RSLT POCT Glucose (01/08/2018 9:00 PM EDT) athologist Signature POC Glucose 173 65 - 199 [facility] mg/dL [facility] LABORATORY Comment: Supplemental ranges: <140 mg/dL before meals <180 mg/dL all other times of the day Specimen Anatomical Collection Method Collection Time Receive d Time (Source) Location / / Volume Laterality Blood specimen 01/08/2018 9:00 PM 018 9:00 (specimen) EDT PM EDT Satnam Brady MD POINT OF CARE TEST ORDERABLE S Performing Organization Address City/[facility]/[place] [address] Heparin (unfractionated) Level (01/08/2018 6:38 PM EDT) P athologist Signature Heparin UFH 0.46 IU/mL [facility] LABORATORY Comment: Guidelines for therapeutic unfractionate d heparin levels are summarized below. Heparin (Anti-Xa) levels should be deter mined in a plasma sample that has been drawn 6 hours after a dose change i.e., steady-state has been reached. DRUG ?Dos ing Schedule ? [facility] Steady-State ?Heparin (Anti-Xa) Levels (Units/mL) Unfractionated ?Continuous inf usion ?0.3-0.7 Heparin ?0.3-0.6 fo r some neurology indications Specimen Anatomical Collection Method Collection Time Receive d Time (Source) Location / / Volume Laterality Blood specimen 01/08/2018 6:38 PM 018 6:58 (specimen) EDT PM EDT Resulting Agency Comment Spec In Lab Myra Cobb APRN HEMATOLOGY ORDERABLES Performing Organization Address City/[facility]/[place] [address] (ABNORMAL) POCT Glucose (01/08/2018 6:05 PM EDT) P athologist Signature POC Glucose 295 (H) 65 - 199 [facility] mg/dL [facility] LABORATORY Comment: Supplemental ranges: <140 mg/dL before meals <180 mg/dL all other times of the day Specimen Anatomical Collection Method Collection Time Receive d Time (Source) Location / / Volume Laterality Blood specimen 01/08/2018 6:05 PM 018 6:05 (specimen) EDT PM EDT Satnam Brady MD POINT OF CARE TEST ORDERABLE S Performing Organization Address [facility]/[place] [address] (ABNORMAL) POCT Glucose (01/08/2018 4:20 PM EDT) P athologist Signature POC Glucose 288 (H) 65 - 199 [facility] mg/dL [facility] LABORATORY Comment: Supplemental ranges: <140 mg/dL before meals <180 mg/dL all other times of the day Specimen Anatomical Collection Method Collection Time Receive d Time (Source) Location / / Volume Laterality Blood specimen 01/08/2018 4:20 PM 018 4:20 (specimen) EDT PM EDT Satnam Brady MD POINT OF CARE TEST ORDERABLE S Performing Organization Address City/[facility]/[place] [address] Cardiac Enzymes (LEB/CGP) (01/08/2018 3:29 PM EDT) athologist Signature Troponin-T <0.01 0.00 - 0.00 [facility] ng/mL [facility] LABORATORY Comment: The 99th percentile for Troponin T is le ss than 0.01 ng/mL, any detectable cTnT concentration using this assay should be considered elevated. According to the third universal definit ion of myocardial infarction the following criteria with a clinical prese ntation consistent with acute myocardial ischemia meets the diagnosis for a myocardial infarction (AK). Detection of a rise and/or fall of cTnT, with at least one value greater than the 99th percentile (> or = 0.01) and wi th at least one of the following ?? Symptoms of ischemia ?? New or presumed new significant ST-se gment-T wave (ST-T) changes or new left bundle branch block (LBBB) ?? Development of pathologic Q waves in the ECG ?? Imaging evidence of new loss of viabl e myocardium or new regional wall motion abnormality ?? Identification of an intracoronary th rombus by angiography or autopsy Samples for cTnT testing should be obtai bunny serially upon first assessment and again 3 to 6 hours later. If the clinica l suspicion is high and previous samples have been negative an additional sample may be indicated. Reference: Third Clayton Definition of Myocardial Infarction. Journal of the [place] [employer] 2012;60:1581-98 CK, Total 101 0 - 160 unit/L [facility] LABORATORY Specimen Anatomical Collection Method Collection Time Receive d Time (Source) Location / / Volume Laterality Blood specimen 01/08/2018 3:29 PM 018 4:00 (specimen) EDT PM EDT Resulting Agency Comment Spec In Lab Megan Rodriguez MD CHEMISTRY ORDERABLES Performing Organization Address City/State/ZIP Code Phon e Number [address] POCT Glucose (01/08/2018 12:04 PM EDT) athologist Signature POC Glucose 133 65 - [address] [facility] mg/dL [facility] LABORATORY Comment: Supplemental ranges: <140 mg/dL before meals <180 mg/dL all other times of the day Specimen Anatomical Collection Method Collection Time Receive d Time (Source) Location / / Volume Laterality Blood specimen 01/08/2018 12:04 8 (specimen) PM EDT 12:04 PM EDT Satnam Brady MD POINT OF CARE TEST ORDERABLE S Performing Organization Address City/State/[place] [address] Head wo Contrast (Generic) (01/08/2018 11:09 AM EDT) Anatomical Region Laterality Modality Head Computed Tomography Specimen (Source) Anatomical Location Collection Method / Collectio n Time Received Time / Laterality Volume Impressions 01/08/2018 11:17 AM EDT No acute intracranial process. Narrative 01/08/2018 11:17 AM EDT EXAMINATION: CT HEAD WO CONTRAST (GENERIC) CLINICAL HISTORY: patient has dysphagia TECHNIQUE: CT Head was performed without contrast COMPARISON: None FINDINGS: There is no acute intracranial hemorrhage. ??There is no mass effect, midline shift or extra-axial fluid colle ction. The ventricles are normal in size. The visualized paranasal sinuses a nd mastoid air cells are clear. The visualized orbits are unremarkable in ap pearance. ??The campos-white differentiation is preserved. ??No osseo us abnormalities. Procedure Note Sunil Reid MD - 01/08/2018Formatti ng of this note might be different from the original. EXAMINATION: CT HEAD WO CONTRAST (GENERI C) CLINICAL HISTORY: patient has dysphagia TECHNIQUE: CT Head was performed without contrast COMPARISON: None FINDINGS: There is no acute intracranial hemorrhage. There is no mass effect, midline shift or extra-axial fluid colle ction. The ventricles are normal in size. The visualized paranasal sinuses a nd mastoid air cells are clear. The visualized orbits are unremarkable in ap pearance. The campos-white differentiation is preserved. No osseous abnormalities. IMPRESSION No acute intracranial process. Myra Cobb FAMILY PRACTICE NURSE PRACTITIONER IMG CT ORDERABLES ECHOCARDIOGRAM COMPLETE W CONTRAST (01/08/2018 9:42 AM EDT) P athologist Signature EF 70 HEARTLAB SYSTEM Specimen (Source) Anatomical Location Collection Method / Collectio n Time Received Time / Laterality Volume 01/08/2018 Narrative HEARTLAB SYSTEM - 01/08/2018 9:47 AM EDT Procedure: ?Transthoracic Echocardiogram Patient: ?NAKIA Calix ? (Age): 1950(67y) Med Rec#: ? [id number] ?Sex: ?F ? Site Loc: ? [facility] ?Ht / Wt: ??168(cm)/88(kg) Pt. Loc: ?Adult Floor ? BSA: ?1.98 Study Date: ?? 01/08/2018 ?Pt. Type: Inpatient Tape: ? Referring: CAMRON Reading: Jorge Alberto Perry ([id number]) Credit Associate: Audie Mir RDCS Diagnosis: *Bradycardia, unspecified (R00.1) CPT Codes: *Echo Full (80641) *Spectral Doppler (15561) *Color Doppler (89975) *Optison ([id number]) Rhythm: ? A-Fib BP: ? 153/99 SUMMARY: 1. There is mild septal hypertrophy of t he left ventricle. ?? There is normal global left ventricular systolic function. ??e quantitative left ventricular ejection fraction by biplane Parry's method is 70%. ??ere are no left ventricular segmental wall m otion abnormalities. 2. Right ventricular chamber size, wall thickness, and systolic function are within normal limits. 3. The left atrium is severely dilated.( 49.6 ml/m2) 4. There is no hemodynamically significa nt valve disease. 5. When compared with study dated , no significant change was found. 6. See remainder of report for additiona l findings. Findings ? : Study Quality: ? Technically limited Left Ventricle: ? The left ventricul ar chamber size is normal. ?There is mild septal hypertrophy o f the left ventricle. ?No ventricular septal defect is vi sualized. ?There is normal global left ventri cular systolic function. ?The quantitative left ventricular ejection fraction by biplane Parry's method is 70%. ?There are no left ventricular segm ental wall motion abnormalities. ?Left ventricular diastolic functio n is abnormal. ?Doppler assessment is consistent w ith elevated left sided filling pressure. Left Atrium: ? The left atrium is se verely dilated.(49.6 ml/m2) ?No atrial septal defect is visuali zed. Right Ventricle: ? Right ventricular chamber size, wall thickness, and systolic function are within normal limi ts. ?The estimated pulmonary artery sys tolic pressure is 35 mmHg. ?The estimated right atrial pressur e is 3 mmHg. Right Atrium: ? The right atrium is normal in size. Aortic Valve: ? The aortic valve is tricuspid. ?The aortic valve leaflets are mild ly thickened. ?Systolic excursion of the aortic v alve is normal. ?There is no evidence of aortic domingo ve stenosis. ?Mild (1+/4+) aortic valve regurgit ation is present. Mitral Valve: ? The mitral valve tray ears normal in structure and function. ?There is no evidence of mitral domingo ve leaflet prolapse. ?There is mild (1+/4+) mitral regur gitation present. Tricuspid Valve: ? The tricuspid domingo ve appears normal in structure and function. ?There is mild (1+/4+) tricuspid re gurgitation present. Pulmonic Valve: ? The pulmonic valve appears normal in structure and function. ?There is trace pulmonic regurgitat ion present. Pericardium: ? The pericardium appea rs normal and there is no evidence of a pericardial effusion. Aorta: ? The aortic root is normal i n size. ?The ascending aorta is normal in s ize. ?There is no evidence of coarctatio n of the aorta. Pulmonary Artery: ? The main pulmona ry artery appears normal. Venous: ? The inferior vena cava tray ears normal in size. ?There is a greater than 50% respir atory change in the inferior vena cava dimension. Misc: ? See remainder of report for additional findings. ?Two-dimensional echo, spectral Dop pler and color Doppler performed. ?Optison contrast (one 3 ml vial) w as used to enhance endocardial definition. Excess contrast was discarde d. Chambers 2D ?Value ?Units (Range) ? IVSd (2D) ? 1.2 ?cm ? LVPWd (2D) ?1.2 ?cm ? IVS:LVPW ratio (2D) 1 ?ratio ? RWT (2D) ?0.5 ?ratio ? RWT PW (2D) ? 0.5 ?ratio ? LVIDd (2D) ?4.6 ?cm ? LVIDs (2D) ?2.7 ?cm ? LVIDd (2D) index ?2.3 ?cm/m2 ? LVIDs (2D) index ?1.4 ?cm/m2 ? LV FS (2D) ?42 ? % ? EF Teichholz (2D) ?? 73 ? % ? Ao root diameter (2D3.8 ?cm (2.1 - 3.6) ? Ascending Ao ?3.5 ?cm (2 - 3.5) ? Volumes/Mass ?Value ?Units (Range) ? LA Area 4 CH ?27.8 ? cm2 (<21) ? LA ESV BP (A/L) inde49.6 ? ml/m2 ? RA AREA 4CH ? 12.9 ? cm2 ? LV ESV SP 4CH (MOD) 34 ? ml ? LV ESV SP 2CH (MOD) 26 ? ml ? LV EDV BP ? 100.8 ?ml ? LV ESV BP ? 30.6 ? ml ? LV EDV BP index ? 50.9 ? ml/m2 ? LV ESV BP index ? 15.5 ? ml/m2 ? BP EF (MOD) ? 70 ? % ? LV mass (2D) ?204.2 ?g ? LV mass (2D) index ??103.1 ?g/m2 ? Diastolic/Systolic Function ?Value ?Units (Range) ? MV E-wave Vmax ?1.5 ?m/sec ? LV septal e' Vmax ?? 0.1 ?m/sec ? LV lateral e' Vmax ??0.1 ?m/sec ? LV average e' Vmax ??0.1 ?m/sec ? LV E:e' septal ratio18.7 ? ratio ? LV E:e' lateral rati18.7 ? ratio ? LV average E:e' rati18.7 ? ratio ? Tricuspid Valve ?Value ?Units (Range) ? TR Vmax ? 2.8 ?m/sec ? TR peak gradient ?31.8 ? mmHg ? RAP ? 3 ?mmHg ? RVSP ?35 ? mmHg ? Wall Motion: Segment Name ?Rest ? Base-Anteroseptal ?? Normal ? Base-Anterior ? Normal ? Base-Anterolateral ??Normal ? Base-Posterolateral Normal ? Base-Inferior ? Normal ? Base-Inferoseptal ?? Normal ? Mid-Anteroseptal ?Normal ? Mid-Anterior ?Normal ? Mid-Anterolateral ?? Normal ? Mid-Posterolateral ??Normal ? Mid-Inferior ?Normal ? Mid-Inferoseptal ?Normal ? [place]-Septal ? Normal ? [place]-Anterior ? Normal ? [place]-Lateral ?Normal ? [place]-Inferior ? Normal ? [place]-Tip ?Normal ? This report has been electronically sign ed by: _ Jorge Alberto Perry M.D. ? 01/08/2018 09:46:49 Images reviewed and interpretation meghann fonseca [facility] Cardiac Ultrasound Laboratory Procedure Note Jorge Alberto Perry MD - 01/08/2018Format ting of this note might be different from the original. Procedure: Transthoracic Echocardiogram Patient: NAKIA Calix DOB(Age): (67y) Med Rec#: [id number] Sex: F [place] Loc: [facility] [place] Ht / Wt: 168(cm)/88(kg) Pt. Loc: Adult Floor BSA: 1.98 Study Date: 01/08/2018 Pt. Type: Inpatie nt Tape: [facility] Reading: Jorge Alberto Perry ([id number]) Credit Associate: Audie Mir [facility] Diagnosis: *Bradycardia, unspecified (R00.1) CPT Codes: *Echo Full (80473) *Spectral Doppler (36261) *Color Doppler (10717) *Optison ([id number]) Rhythm: A-Fib BP: 153/99 SUMMARY: 1. There is mild septal hypertrophy of t he left ventricle. There is normal global left ventricular systolic function. e quantitative left ventricular ejection fraction by biplane Parry's method is 70%. ere are no left ventricular segmental wall m otion abnormalities. 2. Right ventricular chamber size, wall thickness, and systolic function are within normal limits. 3. The left atrium is severely dilated.( 49.6 ml/m2) 4. There is no hemodynamically significa nt valve disease. 5. When compared with study dated , no significant change was found. 6. See remainder of report for additiona l findings. Findings : Study Quality: Technically limited Left Ventricle: The left ventricular natasha mber size is normal. There is mild septal hypertrophy of the left ventricle. No ventricular septal defect is visuali zed. There is normal global left ventricular systolic function. The quantitative left ventricular eject ion fraction by biplane Parry's method is 70%. There are no left ventricular segmental wall motion abnormalities. Left ventricular diastolic function is abnormal. Doppler assessment is consistent with e levated left sided filling pressure. Left Atrium: The left atrium is severely dilated.(49.6 ml/m2) No atrial septal defect is visualized. Right Ventricle: Right ventricular chamb er size, wall thickness, and systolic function are within normal limi ts. The estimated pulmonary artery systolic pressure is 35 mmHg. The estimated right atrial pressure is 3 mmHg. Right Atrium: The right atrium is normal in size. Aortic Valve: The aortic valve is tricus pid. The aortic valve leaflets are mildly th ickened. Systolic excursion of the aortic valve is normal. There is no evidence of aortic valve st enosis. Mild (1+/4+) aortic valve regurgitation is present. Mitral Valve: The mitral valve appears n ormal in structure and function. There is no evidence of mitral valve le aflet prolapse. There is mild (1+/4+) mitral regurgitat ion present. Tricuspid Valve: The tricuspid valve tray ears normal in structure and function. There is mild (1+/4+) tricuspid regurgi tation present. Pulmonic Valve: The pulmonic valve appea rs normal in structure and function. There is trace pulmonic regurgitation p resent. Pericardium: The pericardium appears nor mal and there is no evidence of a pericardial effusion. Aorta: The aortic root is normal in size . The ascending aorta is normal in size. There is no evidence of coarctation of the aorta. Pulmonary Artery: The main pulmonary art ray appears normal. Venous: The inferior vena cava appears n ormal in size. There is a greater than 50% respiratory change in the inferior vena cava dimension. Misc: See remainder of report for additi onal findings. Two-dimensional echo, spectral Doppler and color Doppler performed. Optison contrast (one 3 ml vial) was us ed to enhance endocardial definition. Excess contrast was discarde d. Chambers 2D Value Units (Range) IVSd (2D) 1.2 cm LVPWd (2D) 1.2 cm IVS:LVPW ratio (2D) 1 ratio RWT (2D) 0.5 ratio RWT PW (2D) 0.5 ratio LVIDd (2D) 4.6 cm LVIDs (2D) 2.7 cm LVIDd (2D) index 2.3 cm/m2 LVIDs (2D) index 1.4 cm/m2 LV FS (2D) 42 % EF Teichholz (2D) 73 % Ao root diameter (2D3.8 cm (2.1 - 3.6) Ascending Ao 3.5 cm (2 - 3.5) Volumes/Mass Value Units (Range) LA Area 4 CH 27.8 cm2 (<21) LA ESV BP (A/L) inde49.6 ml/m2 RA AREA 4CH 12.9 cm2 LV ESV SP 4CH (MOD) 34 ml LV ESV SP 2CH (MOD) 26 ml LV EDV BP 100.8 ml LV ESV BP 30.6 ml LV EDV BP index 50.9 ml/m2 LV ESV BP index 15.5 ml/m2 BP EF (MOD) 70 % LV mass (2D) 204.2 g LV mass (2D) index 103.1 g/m2 Diastolic/Systolic Function Value Units (Range) MV E-wave Vmax 1.5 m/sec LV septal e' Vmax 0.1 m/sec LV lateral e' Vmax 0.1 m/sec LV average e' Vmax 0.1 m/sec LV E:e' septal ratio18.7 ratio LV E:e' lateral rati18.7 ratio LV average E:e' rati18.7 ratio Tricuspid Valve Value Units (Range) TR Vmax 2.8 m/sec TR peak gradient 31.8 mmHg RAP 3 mmHg RVSP 35 mmHg Wall Motion: Segment Name Rest Base-Anteroseptal Normal Base-Anterior Normal Base-Anterolateral Normal Base-Posterolateral Normal Base-Inferior Normal Base-Inferoseptal Normal Mid-Anteroseptal Normal Mid-Anterior Normal Mid-Anterolateral Normal Mid-Posterolateral Normal Mid-Inferior Normal Mid-Inferoseptal Normal [place]-Septal Normal [place]-Anterior Normal [place]-Lateral Normal [place]-Inferior Normal [place]-Tip Normal This report has been electronically sign ed by: _ Jorge Alberto Perry M.D. 01/08/2018 09:46: 49 Images reviewed and interpretation verpierre fonseca [facility] Cardiac Ultrasound Laboratory Megan Rodriguez MD ECHO ORDERABLES Performing Organization Address City/State/ZIP Code Phon e Number HEARTLAB SYSTEM Differential, Automated (01/08/2018 9:41 AM EDT) P athologist Signature Neutrophils % 60.0 % [facility] Neutr Abs (ANC) 4.67 1.70 - [facility] 6.10 [facility] x10(3)/[facility] LABORATORY Lymphocytes % 29.0 % [facility] Lymphocytes Abs 2.2 0.9 - 3.2 [facility] x10(3)/[facility] LABORATORY Monocytes % 8.9 % [facility] Monocyte Abs 0.7 0.3 - 0.9 [facility] x10(3)/[facility] LABORATORY Eosinophils % 1.2 % [facility] Eosinophils Abs 0.1 0.0 - 0.4 [facility] x10(3)/[facility] LABORATORY Basophils % 0.6 % [facility] Basophils Abs 0.0 0.0 - 0.1 [facility] x10(3)/[facility] LABORATORY Immature Gran % 0.30 % [facility] Comment: Immature granulocytes(IG's)percentage an d absolute count will include metamyelocytes, myelocytes, and promyelo cytes. Blood smears from CBCs yielding IG's will be scanned manually for concor dance. If this scan disagrees with the automated IG or if promyelocytes are not ed, a manual differential will be performed. Haley Gran Abs 0.02 0.00 - 0.04 x10(3)/[facility] LABORATORY Specimen Anatomical Collection Method Collection Time Receive d Time (Source) Location / / Volume Laterality Blood specimen 01/08/2018 9:41 AM 018 9:56 (specimen) EDT AM EDT Resulting Agency Comment Spec In Lab Megan Rodriguez MD HEMATOLOGY ORDERABLES Performing Organization Address City/State/[place] [address] (ABNORMAL) Hemogram (01/08/2018 9:41 AM EDT) Analysis Performed At Patho logist Time Signature WBC 7.8 4.0 - 9.5 [facility] x10(3)/[facility] LABORATORY RBC 4.40 4.00 - [facility] 5.21 [facility] x10(6)/[facility] LABORATORY Hemoglobin 10.8 (L) 11.7 - [facility] g[facility]/dL [facility] Hematocrit 35.6 (L) 35.7 - [facility] 45.8 % [facility] MCV 80.9 (L) 82.6 - [facility] 94.4 [facility] LABORATORY MCH 24.5 (L) 27.1 - [facility] 32.0 pg [facility] MCHC 30.3 (L) 31.7 - [facility] 35.0 gm/dL [facility] Platelets 383 (H) 145 - 357 [facility] x10(3)/[facility] LABORATORY RDWSD 44.7 37.0 - [facility] 46.0 [facility] LABORATORY RDWCV 15.0 (H) 11.5 - [facility]A ELE[facility] 14.1 % [facility] MPV 10.5 7.6 - 12.9 [facility] LABORATORY nRBC % Auto 0.0 % [facility] nRBC Abs Auto 0.000 0.000 - KAYE RING 0.000 [facility] x10(3)/[facility] LABORATORY Specimen Anatomical Collection Method Collection Time Receive d Time (Source) Location / / Volume Laterality Blood specimen 01/08/2018 9:41 AM 018 9:56 (specimen) EDT AM EDT Resulting Agency Comment Spec In Lab Megan Rodriguez MD HEMATOLOGY ORDERABLES Performing Organization Address City/State/[place] [address] Heparin (unfractionated) Level (01/08/2018 9:41 AM EDT) P athologist Signature Heparin UFH 0.40 IU/mL [facility] LABORATORY Comment: Guidelines for therapeutic unfractionate d heparin levels are summarized below. Heparin (Anti-Xa) levels should be deter mined in a plasma sample that has been drawn 6 hours after a dose change i.e., steady-state has been reached. DRUG ?Dos ing Schedule ? Target Peak Steady-State ?Heparin (Anti-Xa) Levels (Units/mL) Unfractionated ?Continuous inf usion ?0.3-0.7 Heparin ?0.3-0.6 fo r some neurology indications Specimen Anatomical Collection Method Collection Time Receive d Time (Source) Location / / Volume Laterality Blood specimen 01/08/2018 9:41 AM 018 9:56 (specimen) EDT AM EDT Resulting Agency Comment Spec In Lab Megan Rodriguez MD HEMATOLOGY ORDERABLES Performing Organization Address City/[facility]/ZIP Code Phon e Number [address] Cardiac Enzymes (LEB/CGP) (01/08/2018 9:41 AM EDT) athologist Signature Troponin-T <0.01 0.00 - 0.00 [facility] ng/mL [facility] Comment: The 99th percentile for Troponin T is le ss than 0.01 ng/mL, any detectable cTnT concentration using this assay should be considered elevated. According to the third universal definit ion of myocardial infarction the following criteria with a clinical prese ntation consistent with acute myocardial ischemia meets the diagnosis for a myocardial infarction (AK). Detection of a rise and/or fall of cTnT, with at least one value greater than the 99th percentile (> or = 0.01) and wi th at least one of the following ?? Symptoms of ischemia ?? New or presumed new significant ST-se gment-T wave (ST-T) changes or new left bundle branch block (LBBB) ?? Development of pathologic Q waves in the ECG ?? Imaging evidence of new loss of viabl e myocardium or new regional wall motion abnormality ?? Identification of an intracoronary th rombus by angiography or autopsy Samples for cTnT testing should be obtai bunny serially upon first assessment and again 3 to 6 hours later. If the clinica l suspicion is high and previous samples have been negative an additional sample may be indicated. Reference: Third Clayton Definition of Myocardial Infarction. Journal of the [place] [employer] 2012;60:1581-98 CK, Total 112 0 - 160 unit/L [facility] Specimen Anatomical Collection Method Collection Time Receive d Time (Source) Location / / Volume Laterality Blood specimen 01/08/2018 9:41 AM 018 9:56 (specimen) EDT AM EDT Resulting Agency Comment Spec In Lab Megan Rodriguez MD CHEMISTRY ORDERABLES Performing Organization Address City/[facility]/[place] [address] (ABNORMAL) POCT Glucose (01/08/2018 7:56 AM EDT) P athologist Signature POC Glucose 272 (H) 65 - 199 [facility] mg/dL [facility] Comment: Supplemental ranges: <140 mg/dL before meals <180 mg/dL all other times of the day Specimen Anatomical Collection Method Collection Time Receive d Time (Source) Location / / Volume Laterality Blood specimen 01/08/2018 7:56 AM 018 7:56 (specimen) EDT AM EDT Satnam Brady MD POINT OF CARE TEST ORDERABLE S Performing Organization Address City/State/[place] [address] EKG 12 Lead (01/08/2018 1:33 AM EDT) Component Value Ref Range Test Analysis Performed Pathologis t Method Time At Signature Ventricular rate 96 BPM MUSE SYSTEM Atrial Rate 89 BPM MUSE SYSTEM QRS Duration 74 ms MUSE SYSTEM Q-T Interval 352 ms MUSE SYSTEM QTC Calculated 444 ms MUSE SYSTEM (Bezet) Calculated R [place] 12 degrees MUSE SYSTEM Calculated T [place] 0 degrees MUSE SYSTEM INTERPRETATION Atrial fibrillation MUSE SYSTEM Low voltage QRS Abnormal ECG When compared with ECG of 30-MAR-2014 06:40, Atrial fibrillation has replaced Sinus rhythm Vent. rate has increased BY ??33 BPM Confirmed by José Manuel Jett MD ([id number]) on 01/08/2018 9:22:43 AM Specimen Anatomical Collection Method Collection Time Receive d Time (Source) Location / / Volume Laterality 01/08/2018 1:33 AM 8 9:22 EDT AM EDT Megan Rodriguez MD ECG ORDERABLES Performing Organization Address City/State/ZIP Code Phon e Number MUSE SYSTEM (ABNORMAL) BMP w/fasting Glucose (01/08/2018 1:29 AM EDT) P athologist Signature Glucose 241 (H) 65 - 99 [facility] Fasting mg/dL [facility] Comment: ?Fasting* Glucose Interpretive C riteria Normal ?65-99 mg/dL Impaired Fasting glucose ?100-125 mg/dL Consistent with Diabetes Mellitus ? >or= 126 mg/dL *Fasting is defined as no caloric intake for at least 8 hours In the absence of unequivocal hypergly cemia a plasma glucose value of >or= 126 mg/dL should be repeated on a subseq uent day. Diagnosis and Classification of Diabetes Mellitus, Position Statement from the [place] [employer]. ??Diabete s Care, Volume 33, Supplement 1, Jun 2009 BUN 16 8 - 18 mg/dL [facility] Creatinine 0.91 0.70 - 1.20 mg/dL [facility] Sodium 137 135 - 145 mmol/L [facility] Potassium 4.3 3.5 - 5.0 mmol/L [facility] Comment: Please note: ??Patients with WBC >100,00 0 may have falsely elevated Potassium levels. ??For accurate Potassium quantif ication in these patients send serum separator tube (gold top) for subsequent determinations. ??Contact the Clinical Chemistry Laboratory if there are any qu estions. Chloride 98 98 - 107 mmol/L [facility] CO2 23 22 - 31 mmol/L [facility] Anion Gap 16 (H) 5 - 15 mmol/L [facility] Calcium 8.8 8.5 - 10.5 mg/dL [facility] Estimated GFR 64 >=60 mL/min/1.73 m?? [facility] Comment: The eGFR was calculated using the CKD-EP I equation. As with all creatinine based estimates of kidney function, eGFR values calculated with the CKD-EPI equation are not accurate in patients wi th acute kidney failure, extremes of body mass or the acutely ill. [email or web address] eGFR 75 >=60 mL/min/1.73 m?? [facility] Comment: The eGFR was calculated using the CKD-EP I equation. As with all creatinine based estimates of kidney function, eGFR values calculated with the CKD-EPI equation are not accurate in patients wi th acute kidney failure, extremes of body mass or the acutely ill. [email or web address] Specimen Anatomical Collection Method Collection Time Receive d Time (Source) Location / / Volume Laterality Blood specimen 01/08/2018 1:29 AM 018 1:42 (specimen) EDT AM EDT Resulting Agency Comment Spec In Lab Megan Rodriguez MD CHEMISTRY ORDERABLES Performing Organization Address City/State/[place] [address] Differential, Automated (01/08/2018 1:29 AM EDT) P athologist Signature Neutrophils % 66.1 % [facility] Neutr Abs (ANC) 6.01 1.70 - [facility] 6.10 [facility] x10(3)/[facility] LABORATORY Lymphocytes % 23.2 % [facility] Lymphocytes Abs 2.1 0.9 - 3.2 [facility] x10(3)/[facility] LABORATORY Monocytes % 9.0 % [facility] Monocyte Abs 0.8 0.3 - 0.9 [facility] x10(3)/[facility] LABORATORY Eosinophils % 0.7 % [facility] Eosinophils Abs 0.1 0.0 - 0.4 [facility] x10(3)/[facility] LABORATORY Basophils % 0.7 % [facility] Basophils Abs 0.1 0.0 - 0.1 [facility] x10(3)/[facility] LABORATORY Immature Gran % 0.30 % [facility] Comment: Immature granulocytes(IG's)percentage an d absolute count will include metamyelocytes, myelocytes, and promyelo cytes. Blood smears from CBCs yielding IG's will be scanned manually for concor dance. If this scan disagrees with the automated IG or if promyelocytes are not ed, a manual differential will be performed. Haley Gran Abs 0.03 0.00 - 0.04 x10(3)/[facility] LABORATORY Specimen Anatomical Collection Method Collection Time Receive d Time (Source) Location / / Volume Laterality Blood specimen 01/08/2018 1:29 AM 018 1:42 (specimen) EDT AM EDT Resulting Agency Comment Spec In Lab Megan Rodriguez MD HEMATOLOGY ORDERABLES Performing Organization Address City/State/[place] [address] (ABNORMAL) Hemogram (01/08/2018 1:29 AM EDT) Analysis Performed At Patho logist Time Signature WBC 9.1 4.0 - 9.5 [facility] x10(3)/[facility] LABORATORY RBC 4.22 4.00 - [facility] 5.21 [facility] x10(6)/[facility] LABORATORY Hemoglobin 10.4 (L) 11.7 - [facility] 15.5 gm/dL [facility] Hematocrit 34.3 (L) 35.7 - [facility] 45.8 % [facility] MCV 81.3 (L) 82.6 - [facility] 94.4 [facility] LABORATORY MCH 24.6 (L) 27.1 - [facility] 32.0 pg [facility] LABORAT[facility] MCHC 30.3 (L) 31.7 - [facility] 35.0 gm/dL [facility] LABOR[facility] Platelets 391 (H) 145 - 357 [facility] x10(3)/[facility] LABORATORY RDWSD 43.3 37.[address] [facility] 46.0 [facility] LABORATORY RDWCV 14.8 (H) 11.5 - [facility] 14.1 % [facility] LABORATORY MPV 10.4 7.6 - 12.9 [facility] LABORATORY nRBC % Auto 0.0 % [facility] LABORATORY nRBC Abs Auto 0.000 0.000 - [facility] 0.000 [facility] x10(3)/[facility] LABORATORY Specimen Anatomical Collection Method Collection Time Receive d Time (Source) Location / / Volume Laterality Blood specimen 01/08/2018 1:29 AM 018 1:42 (specimen) EDT AM EDT Resulting Agency Comment Spec In Lab Megan Rodriguez MD HEMATOLOGY ORDERABLES Performing Organization Address City/State/[place] [address] LDL Cholesterol, Direct (01/08/2018 1:29 AM EDT) P athologist Signature LDL Chol 62 mg/dL [facility] LABORATORY Comment: Lowest Risk: <100 mg/dL Lower Risk: 100-129 mg/dL Borderline High Risk: 130-159 mg/dL High Risk: 160-189 mg/dL Very High Risk: >sq=698 mg/dL Specimen Anatomical Collection Method Collection Time Receive d Time (Source) Location / / Volume Laterality Blood specimen 01/08/2018 1:29 AM 018 1:42 (specimen) EDT AM EDT Resulting Agency Comment Spec In Lab Megan Rodriguez MD CHEMISTRY ORDERABLES Performing Organization Address City/State/ZIP Code Phon e Number [address] (ABNORMAL) Hemoglobin A1c (01/08/2018 1:29 AM EDT) Patholo gist Method Time Signature Hemoglobin A1C 10.8 (H) 4.3 - 5.6 [facility] LABORATORY Comment: Reference Range: 4.3 - 5.6% 5.7 - 6.4% - Increased Risk of Developin g Diabetes Mellitus >=6.5% - Consistent with diagnosis of Di abetes Mellitus In the absence of hyperglycemia (i.e. pl asma glucose > 200 mg/dL) or classic symptoms of hyperglycemia a repeat measu rement of HbA1c should be performed on a separate sample to confirm the diagnos is. Diagnosis and Classification of Diabetes Mellitus, Diabetes Care 2013; 36: Suppl. 1, S67-74 Est Avg Gluc 263 mg/dL [facility] LABORATORY Comment: eAG equivalents for HbA1c percentages: HbA1c(%) ?eAG(mg/dL) 6.0 ?126 6.5 ?140 7.0 ?154 7.5 ?169 8.0 ?183 8.5 ?197 9.0 ?212 9.5 ?226 10.0 ? 240 Limitations: The eAG calculation has not been validated on women, individuals below 18 years old and above 70 years old, and individuals with hemoglobinopathies. Additional resources are available on e ADA website. Mike NGUYEN, Jacqueline J, Kadi R, et al. ??Tr anslating the A1C assay into estimated average glucose values. ??Diabetes Care 2008:31(8):1794-4639. Specimen Anatomical Collection Method Collection Time Receive d Time (Source) Location / / Volume Laterality Blood specimen 01/08/2018 1:29 AM 018 1:42 (specimen) EDT AM EDT Resulting Agency Comment Spec In Lab Megan Rodriguez MD CHEMISTRY ORDERABLES Performing Organization Address City/State/ZIP Code Phon e Number [place] [id number]ITAL LAB[address]ORY [address] Cardiac Enzymes (LEB/CGP) (01/08/2018 1:29 AM EDT) P athologist Signature Troponin-T <0.01 0.00 - 0.00 [facility] ng/mL [facility] LABORATORY Comment: The 99th percentile for Troponin T is le ss than 0.01 ng/mL, any detectable cTnT concentration using this assay should be considered elevated. According to the third universal definit ion of myocardial infarction the following criteria with a clinical prese ntation consistent with acute myocardial ischemia meets the diagnosis for a myocardial infarction (AK). Detection of a rise and/or fall of cTnT, with at least one value greater than the 99th percentile (> or = 0.01) and wi th at least one of the following ?? Symptoms of ischemia ?? New or presumed new significant ST-se gment-T wave (ST-T) changes or new left bundle branch block (LBBB) ?? Development of pathologic Q waves in the ECG ?? Imaging evidence of new loss of viabl e myocardium or new regional wall motion abnormality ?? Identification of an intracoronary th rombus by angiography or autopsy Samples for cTnT testing should be obtai bunny serially upon first assessment and again 3 to 6 hours later. If the clinica l suspicion is high and previous samples have been negative an additional sample may be indicated. Reference: Third Clayton Definition of Myocardial Infarction. Journal of the [place] [employer] 2012;60:1581-98 CK, Total 107 0 - 160 unit/L [facility] LABORATORY Specimen Anatomical Collection Method Collection Time Receive d Time (Source) Location / / Volume Laterality Blood specimen 01/08/2018 1:29 AM 018 1:42 (specimen) EDT AM EDT Resulting Agency Comment Spec In Lab Megan Rodriguez MD CHEMISTRY ORDERABLES Performing Organization Address City/State/[place] [address] Lipid Panel (01/08/2018 1:29 AM EDT) athologist Signature Chol, Total 118 mg/dL [facility] LABOR[facility]ORY Comment: Lower Risk: <200 mg/dL Average Risk: 200-239 mg/dL Higher Risk: >tx=785 mg/dL Triglycerides 51 mg/dL [facility] LABORATORY Comment: Average Risk/Lower Risk: <150 mg/dL Borderline High Risk: 150-199 mg/dL High Risk: 200-499 mg/dL Very High Risk: >jd=696 mg/dL HDL 51 mg/dL [facility] LABORATORY Comment: Males: ?? Higher Risk: <40 mg/dL Females: ?? HIgher Risk: <50 mg/dL LDL Cholesterol 57 mg/dL [facility] Comment: Lowest Risk: <100 mg/dL Lower Risk: 100-129 mg/dL Borderline High Risk: 130-159 mg/dL High Risk: 160-189 mg/dL Very High Risk: >oo=053 mg/dL Chol/HDL Ratio 2.3 ratio [facility] Lipid Interpretation See Note [facility] LABORATORY Comment: Lipid management should be guided by a p atient? s ASCVD risk, goals and preferences. ACC/AHA Guidelines recommend high intens ity statin if clinical ASCVD or LDL greater than or equal to 190 mg/dL. [email or web address] Adults aged 40-75 with LDL 70-189 mg/dL should have their 10 year ASCVD risk estimated with the ACC/AHA ASCVD risk es timator http://tools.acc.org/TQTFW-Orsy-Kikkbrrj r/ Statin should be discussed if risk great er than or equal to 7.5% in non-diabetics. With diabetes, moderate i ntensity statin is recommended if risk less than 7.5%, high intensity if risk g reater than or equal to 7.5%. Annual lipid monitoring on statins is no t necessary. Evaluate secondary causes of Triglycerid es greater than 500 mg/dL or LDL greater than 190 mg/dL: See table 6 of A CC/AHA Guideline. Lifestyle modification is a critical com ponent of ASCVD risk reduction. Specimen Anatomical Collection Method Collection Time Receive d Time (Source) Location / / Volume Laterality Blood specimen 01/08/2018 1:29 AM 018 1:42 (specimen) EDT AM EDT Resulting Agency Comment Spec In Lab Megan Rodriguze MD CHEMISTRY ORDERABLES Performing Organization Address City/[facility]/[place] [address] APTT (01/08/2018 1:29 AM EDT) P athologist Signature PTT 31 25 - 37 sec [facility] LAB[facility] Comment: The PTT is NOT appropriate for heparin m onitoring. Use the Anti-Xa level for heparin monitoring (HEP UFH) or LMWH mon itoring (HEP LMW). A PTT less than 37 seconds generally indicates adequate hem ostasis. Specimen Anatomical Collection Method Collection Time Receive d Time (Source) Location / / Volume Laterality Blood specimen 01/08/2018 1:29 AM 018 1:42 (specimen) EDT AM EDT Resulting Agency Comment Spec In Lab Megan Rodriguez MD HEMATOLOGY ORDERABLES Performing Organization Address City/[facility]/[place] [address] (ABNORMAL) Prothrombin Time (01/08/2018 1:29 AM EDT) P athologist Signature PT 13.1 (H) 9.4 - 12.5 [facility] sec [facility] INR 1.2 [facility] Comment: An INR <2.0 indicates adequate procoagul ant activity for hemostasis in most patients without underlying bleeding dis orders, though the INR may not adequately reflect hemostatic capacity i n patients with liver disease and synthetic impairment. The recommended ta rget INR range for therapeutic anticoagulation is 2.0 ? 3.0 for most applications, though lower and higher ranges may be appropriate depending on c linical circumstances. Specimen Anatomical Collection Method Collection Time Receive d Time (Source) Location / / Volume Laterality Blood specimen 01/08/2018 1:29 AM 018 1:42 (specimen) EDT AM EDT Resulting Agency Comment Spec In Lab Megan Rodriguez MD HEMATOLOGY ORDERABLES Performing Organization Address City/[facility]/[place] [address] Hepatic Function Panel (01/08/2018 1:29 AM EDT) P athologist Signature Total Protein 6.9 6.1 - 8.0 [facility] gm/dL [facility] Albumin 3.6 3.2 - 5.2 [facility] gm/dL [facility] AST 11 0 - 30 [facility] unit/L [facility] ALT 13 0 - 30 [facility] unit/L [facility] Alk Phos 48 40 - 104 [facility] unit/L [facility] Total 0.2 0.2 - 1.3 [facility] Bilirubin mg/dL [facility] Bili, Direct 0.1 0.0 - 0.3 [facility] mg/dL [facility]OR[facility]ORY Specimen Anatomical Collection Method Collection Time Receive d Time (Source) Location / / Volume Laterality Blood specimen 01/08/2018 1:29 AM 018 1:42 (specimen) EDT AM EDT Resulting Agency Comment Spec In Lab Megan Rodriguez MD CHEMISTRY ORDERABLES Performing Organization Address City/[facility]/ZIP Code Phon e Number [address] (ABNORMAL) pro-Brain Natriuretic Peptide (01/08/2018 1:29 AM EDT) athologist Signature ProBNP 609 (H) <=125 pg/mL [facility] LABORATORY Specimen Anatomical Collection Method Collection Time Receive d Time (Source) Location / / Volume Laterality Blood specimen 01/08/2018 1:29 AM 018 1:42 (specimen) EDT AM EDT Resulting Agency Comment Spec In Lab Megan Rodriguez MD CHEMISTRY ORDERABLES Performing Organization Address City/State/ZIP Code Phon e Number [address] TSH (01/08/2018 1:29 AM EDT) athologist Signature TSH 1.37 0.27 - 4.20 [facility] mlU/ML [facility] LABORATORY Specimen Anatomical Collection Method Collection Time Receive d Time (Source) Location / / Volume Laterality Blood specimen 01/08/2018 1:29 AM 018 1:42 (specimen) EDT AM EDT Resulting Agency Comment Spec In Lab Megan Rodriguez MD CHEMISTRY ORDERABLES Performing Organization Address City/State/ZIP Code Phon e Number [address] Phosphorus (01/08/2018 1:29 AM EDT) athologist Signature Phosphorus 3.9 2.5 - 4.5 [facility] Specimen Anatomical Collection Method Collection Time Receive d Time (Source) Location / / Volume Laterality Blood specimen 01/08/2018 1:29 AM 018 1:42 (specimen) EDT AM EDT Resulting Agency Comment Spec In Lab Megan Rodriguez MD CHEMISTRY ORDERABLES Performing Organization Address City/[facility]/ZIP Code Phon e Number [address] (ABNORMAL) Magnesium (01/08/2018 1:29 AM EDT) athologist Signature Magnesium 0.67 (L) 0.69 - 1.07 [facility] mmol/L [facility] Specimen Anatomical Collection Method Collection Time Receive d Time (Source) Location / / Volume Laterality Blood specimen 01/08/2018 1:29 AM 018 1:42 (specimen) EDT AM EDT Resulting Agency Comment Spec In Lab Megan Rodriguez MD CHEMISTRY ORDERABLES Performing Organization Address City/State/[place] [address] (ABNORMAL) POCT Glucose (01/08/2018 1:28 AM EDT) P athologist Signature POC Glucose 234 (H) 65 - 199 [facility] mg/dL [facility] LAB[facility]ORY Comment: Supplemental ranges: <140 mg/dL before meals <180 mg/dL all other times of the day Specimen Anatomical Collection Method Collection Time Receive d Time (Source) Location / / Volume Laterality Blood specimen 01/08/2018 1:28 AM 018 1:28 (specimen) EDT AM EDT Rafat Jerome MD POINT OF CARE TEST ORDERABLE S Performing Organization Address City/State/[place] [address] documented in this encounter Visit Diagnoses Diagnosis Symptomatic bradycardia - Primary Other specified cardiac dysrhythmias Diabetes mellitus Type II or unspecified type diabetes michelle litus without mention of complication, not stated as uncontrolled Atrial fibrillation Syncope Syncope and collapse Morbid obesity Symptomatic bradycardia Other specified cardiac dysrhythmias documented in this encounter Administered Medications Inactive Administered Medications - up to 3 most recent administrations Medication Order MAR Action Action Date Dose Rate Site acetaminophen (TYLENOL) tablet 650 Given 01/10/2018 9:32 AM EDT 650 mg mg 650 mg, Oral, EVERY 4 HOURS PRN, Starting on Thu01/08/18 at 0055, Until Thu01/11/18 at 1442, Pain, Headaches, Maximum dose of acetaminophen is 4000 mg from all sources in 24 hours., Routine aspirin chewable tablet 81 mg Given 01/11/2018 8:28 AM EDT 81 mg 81 mg, Oral, DAILY, First dose on Thu01/08/18 at 0145, Until Discontinued, Routine Given 01/10/2018 9:31 AM EDT 81 mg Given 01/09/2018 8:21 AM EDT 81 mg dextrose 50% IV syringe 25-50 mL 25-50 mL (12.5-25 g), Intravenous, EVERY 1 HOUR PRN, S tarting on Thu01/09/18 at 1354, Until Thu01/11/18 at 1442, Low blo od sugar, For BG 50-70: 120 mL Juice or Regular (not diet) soda OR 12.5 gram (25 mL) Dextrose 50% IV OR, if no IV access, 1 mg Glucagon IM. Recheck BG in 30 minut es. May repeat juice, dextrose or glucagon once per episode For BG less than 50: 240 mL Juice or Regular (not diet) soda OR 25 grams (50 mL) Dextrose 50% IV OR, if no IV access, 1 mg Glucagon IM. Recheck BG in 30 minutes. May repeat juice, dext charly, or glucagon once per episode. To avoid extravasation, push Dextrose 50% SLOWLY (3 mL ov er 1 minute) in a patent, running IV, preferably a central line. For persisten t hypoglycemia, consider longer-acting treatment for the duration of the active insulin., Routine DILTiazem (CARDIZEM CD) ER capsule 180 m g Given 01/11/2018 8:29 AM EDT 180 mg 180 mg, Oral, DAILY, First dose on Thu01/11/18 at 0900, Until Discontinued, DO NOT CRUSH OR OPEN, Routine dilTIAZem (CARDIZEM) tablet 30 mg Given 01/10/2018 5:13 AM EDT 30 mg 30 mg, Oral, EVERY 6 HOURS SCHEDULED, First dose on Thu01/08/18 at 0800, Until Discontinued, Routine Given 01/09/2018 11:27 PM EDT 30 mg Given 01/09/2018 5:26 PM EDT 30 mg dilTIAZem (CARDIZEM) tablet 30 mg Given 01/10/2018 9:31 AM EDT 30 mg 30 mg, Oral, ONCE, 1 dose, On Thu01/10/18 at 0900, Routine DILTiazem (CARDIZEM) tablet 60 mg Given 01/10/2018 8:49 PM EDT 60 mg 60 mg, Oral, EVERY 8 HOURS SCHEDULED, 2 doses, First dose (after last modification) on Thu01/10/18 at 1400, Last dose on Thu01/10/18 at 2200, Routine Given 01/10/2018 2:56 PM EDT 60 mg docusate sodium (COLACE) capsule 100 mg Given 01/08/2018 9:44 AM EDT 100 mg 100 mg, Oral, 2 TIMES DAILY, First dose on Thu01/08/18 at 0115, Until Discontinued, Routine famotidine (PEPCID) tablet 20 mg Given 01/11/2018 8:29 AM EDT 20 mg 20 mg, Oral, DAILY, First dose on Thu01/08/18 at 0900, Until Discontinued, Routine Given 01/10/2018 9:32 AM EDT 20 mg Given 01/09/2018 8:21 AM EDT 20 mg glucagon (human recombinant) injection S olR 1 mg 1 mg, Intramuscular, EVERY 1 HOUR PRN, S tarting on Thu01/09/18 at 1354, Until 01/11/18 at 1442, Low blood sugar, For BG 50-70: 120 mL Juice or Regular (not diet) soda OR 12.5 gram (25 mL) Dextrose 50% IV OR, if no IV access, 1 mg Glucagon IM. Recheck BG in 30 minutes. May repeat juice, dext charly or glucagon once per episode For BG less than 50: 240 mL Ju ice or Regular (not diet) soda OR 25 grams (50 mL) Dextrose 50% IV OR, if no IV acc ess, 1 mg Glucagon IM. Recheck BG in 30 minutes. May repeat juice, dextrose, or glucagon once per episode. To avoid extravasation, push Dextrose 50% SLOWLY (3 mL over 1 minute) in a patent, running IV, preferably a central line. For persistent hypogl ycemia, consider longer-acting treatment for the duration of the active insulin., Routine heparin 25,000 units in New Bag 01/08/2018 2:18 AM EDT 1,000 Units /hr 20 mL/hr dextrose 5% 500 mL infusion 0-5,000 Units/hr (0-100 mL/hr), Intravenous, CONTINUOUS, Starting on Thu01/08/18 at 0230, Until Thu01/08/18 at 1008, BEGIN infusion at 1,000 units per hr (12 units/kg/hr). MAX INITIAL infusion rate is 1,000 units/hr. Target Heparin UFH Level (anti-Xa activity) = 0.3 - 0.7 IU/mL Start adjustment schedule 6 hours after starting infusion. If Heparin UFH Level is: - less than 0.1 IU/mL, administer PRN bolus and increase rate by 400 units per hr (4 units/kg/hr) - 0.1 - 0.29 IU/mL, administer PRN bolus and increase rate by 200 units per hr (2 units/kg/hr) - 0.3 - 0.7 IU/mL, No Change - 0.71 - 0.85 IU/mL, decrease rate by 100 units per hr (1 units/kg/hr) - 0.86 - 1.05 IU/mL, stop infusion for 30 minutes, then decrease rate by 200 units per hr (2 units/kg/hr) - Greater than 1.05 IU/mL, stop infusion for 60 minutes, then decrease rate by 300 units per hour (3 units/kg/hr) Repeat Heparin UFH Level 6 hours after initiating heparin. Then 6 hours after each dose adjustment. When 2 consecutive Heparin UFH Level within target range of 0.3 - 0.7 IU/mL, change Heparin UFH Level to once every 24 hours with A.M. labs while on heparin. RN to order required Heparin UFH Level - Per Protocol, Routine heparin 25,000 units in New Bag 01/09/2018 1:36 AM EDT 1,300 Units /hr 26 mL/hr dextrose 5% 500 mL infusion 0-5,000 Units/hr (0-100 mL/hr), Intravenous, CONTINUOUS, Starting on Thu01/08/18 at 1315, Until Thu01/10/18 at 1501, Discontinue 30 minutes after giving Rivaroxiban Begin infusion at 1,300 units per hr (15 units/kg/hr). MAX INITIAL infusion rate is 1,750 units/hr Target Heparin UFH Level (anti-Xa activity) = 0.3 - 0.7 IU/mL Start adjustment schedule 6 hours after starting infusion. If Heparin UFH Level is: - less than 0.1 IU/mL, administer PRN bolus and increase rate by 350 units per hr (4 units/kg/hr) - 0.1 - 0.29 IU/mL, administer PRN bolus and increase rate by 200 units per hr (2 units/kg/hr) - 0.3 - 0.7 IU/mL, No Change - 0.71 - 0.85 IU/mL, decrease rate by 100 units per hr (1 units/kg/hr) - 0.86 - 1.05 IU/mL, stop infusion for 30 minutes, then decrease rate by 200 units per hr (2 units/kg/hr) - Greater than 1.05 IU/mL, stop infusion for 60 minutes, then decrease rate by 250 units per hour (3 units/kg/hr) Repeat Heparin UFH Level 6 hours after initiating heparin. Then 6 hours after each dose adjustment. When 2 consecutive Heparin UFH Level within target range of 0.3 - 0.7 IU/mL, change Heparin UFH Level to once every 24 hours with A.M. labs while on heparin. RN to order required Heparin UFH Level - Per Protocol, Routine Restarted 01/08/2018 1:01 PM EDT 1,300 Units/hr 26 mL/hr insulin glargine VIAL injection 20 Units Given 01/08/2018 2:09 AM EDT 20 Units 20 Units, Subcutaneous, EVERY 24 HOURS, First dose on Thu01/08/18 at 0130, Until Discontinued, Routine insulin glargine VIAL injection 40 Units Given 01/10/2018 8:49 PM EDT 40 Units 40 Units, Subcutaneous, EVERY 24 HOURS, First dose on Thu01/09/18 at 2100, Until Discontinued, Routine Given 01/09/2018 8:22 PM EDT 40 Units insulin lispro (HumaLOG) VIAL injection 2-8 Given 12/21 4:22 PM EDT 8 Units Units 2-8 Units, Subcutaneous, 4 TIMES DAILY BEFORE MEALS & NIGHTLY, First dose on Thu01/08/18 at 0130, Until Discontinued, CORRECTION BOLUS Moderate BG 140 - 160 Give 2 units BG 161 - 200 Give 4 units BG 201 - 240 Give 6 units BG greater than 240, give 8 units and recheck BG in 2 hours.If BG less than 240 after two hours, give no insulin and resume prior schedule. If BG remains greater than 240, repeat 8 units (no more than three times) & call for new basal insulin orders. DO NOT hold if NPO, unless specifically told to do so., Routine Given 01/08/2018 8:39 AM EDT 8 Units Given 01/08/2018 2:04 AM EDT 6 Units insulin lispro (HumaLOG) VIAL injection 2-8 Given 12/21 11:51 AM EDT 8 Units Units 2-8 Units, Subcutaneous, 3 TIMES DAILY BEFORE MEALS, First dose on Thu01/08/18 at 1730, Until Discontinued, CORRECTION BOLUS Moderate BG 140 - 160 Give 2 units BG 161 - 200 Give 4 units BG 201 - 240 Give 6 units BG greater than 240, give 8 units and recheck BG in 2 hours.If BG less than 240 after two hours, give no insulin and resume prior schedule. If BG remains greater than 240, repeat 8 units (no more than three times) & call for new basal insulin orders. DO NOT hold if NPO, unless specifically told to do so., Routine Given 01/09/2018 10:35 AM EDT 8 Units Given 01/09/2018 8:00 AM EDT 8 Units insulin lispro (HumaLOG) VIAL injection Given 01/11/2018 12:18 P M EDT 12 Units 3-12 Units 3-12 Units, Subcutaneous, 3 TIMES DAILY BEFORE MEALS, First dose on Thu01/09/18 at 1630, Until Discontinued, CORRECTION BOLUS Resistant to insulin obese patient or TDD (total daily dose of all insulin needed to achieve glycemic control) greater than 60 units BG 140 - 160 Give 3 units BG 161 - 200 Give 6 units BG 201 - 240 Give 9 units BG greater than 240, give 12 units and recheck BG in 2 hours.If BG less than 240 after two hours, give no insulin and resume prior schedule. If BG remains greater than 240, repeat 12 units (no more than three times) & call for new basal insulin orders. DO NOT hold if NPO, unless specifically told to do so., Routine Given 01/11/2018 8:36 AM EDT 6 Units Given 01/10/2018 5:09 PM EDT 6 Units insulin lispro (HumaLOG) VIAL injection 8 Given 01/11/2018 1:24 PM EDT 8 Units Units 8 Units, Subcutaneous, 3 TIMES DAILY WITH MEALS, First dose on Thu01/09/18 at 1700, Until Discontinued, [employer] If a range is ordered, give smaller dose with less carbohydrate intake. Hold if not eating, Routine Given 01/11/2018 8:37 AM EDT 8 Units Given 01/10/2018 5:09 PM EDT 8 Units lidocaine (XYLOCAINE) 10 mg/mL (1 %) inj ection 3 mg 3 mg (0.3 mL), Subcutaneous, ONCE PRN, 1 dose, Startin g on Thu01/08/18 at 0053, Until Thu01/11/18 at 1442, for discomfort with PIV ins ertion, Routine lisinopril (PRINIVIL;ZESTRIL) tablet 10 mg Given 01/11/2018 8:28 AM EDT 10 mg 10 mg, Oral, DAILY, First dose on Thu01/08/18 at 0900, Until Discontinued, Routine Given 01/10/2018 9:31 AM EDT 10 mg Given 01/09/2018 8:22 AM EDT 10 mg magnesium oxide (MAG-OX) tablet 400 mg Given 01/11/2018 8:28 AM EDT 400 mg 400 mg, Oral, 2 TIMES DAILY, First dose on Thu01/08/18 at 0245, Until Discontinued, Routine Given 01/10/2018 8:49 PM EDT 400 mg Given 01/10/2018 9:32 AM EDT 400 mg magnesium sulfate 1g in dextrose 5% New Bag 01/08/2018 6:32 AM EDT 1 g 100 mL/hr 100mL 1 g, Intravenous, EVERY 2 HOURS, 3 doses, First dose on Thu01/08/18 at 0245, Last dose on Thu01/08/18 at 0645, Administer over 60 Minutes New Bag 01/08/2018 4:28 AM EDT 1 g 100 mL/hr New Bag 01/08/2018 2:42 AM EDT 1 g 100 mL/hr magnesium sulfate 1g in dextrose 5% New Bag 01/10/2018 7:53 AM EDT 1 g 100 mL/hr 100mL 1 g, Intravenous, ONCE, 1 dose, On Thu01/10/18 at 0800, Administer over 60 Minutes metoprolol succinate (TOPROL-XL) XL tablet Given 01/11/2018 8:38 AM EDT 100 mg 100 mg 100 mg, Oral, DAILY, First dose on Thu01/11/18 at 0900, Until Discontinued, DO NOT CRUSH OR OPEN, Routine metoprolol tartrate (LOPRESSOR) tablet 2 5 mg Given 01/08/2018 2:53 AM EDT 25 mg 25 mg, Oral, EVERY 12 HOURS SCHEDULED (2 times per day), First dose on Thu01/08/18 at 0300, Until Discontinued, Routine metoprolol tartrate (LOPRESSOR) tablet 2 5 mg Given 01/09/2018 11:51 AM EDT 25 mg 25 mg, Oral, EVERY 6 HOURS SCHEDULED, First dose (after last modification) on Thu01/08/18 at 0745, Until Discontinued, Routine Given 01/09/2018 6:07 AM EDT 25 mg Given 01/08/2018 11:56 PM EDT 25 mg metoprolol tartrate (LOPRESSOR) tablet 2 5 mg Given 01/09/2018 2:47 PM EDT 25 mg 25 mg, Oral, ONCE, 1 dose, On 01/09/18 at 1245, Routine metoprolol tartrate (LOPRESSOR) tablet 5 0 mg Given 01/09/2018 8:30 PM EDT 50 mg 50 mg, Oral, EVERY 12 HOURS SCHEDULED (2 times per day), First dose (after last modification) on 01/09/18 at 1415, Until Discontinued, Routine metoprolol tartrate (LOPRESSOR) tablet 5 0 mg Given 01/10/2018 8:49 PM EDT 50 mg 50 mg, Oral, EVERY 12 HOURS SCHEDULED (2 times per day), First dose (after last modification) on Thu01/10/18 at 0900, Until Discontinued, Routine Given 01/10/2018 9:31 AM EDT 50 mg nitroGLYcerin (NITROSTAT) SL tablet 0.4 mg 0.4 mg, Sublingual, EVERY 5 MIN PRN, Starting on Thu at 0053, Until Thu01/11/18 at 1442, Chest pain, May repeat every 5 minutes for a total of three doses. Notify provider if chest pain not reliev ed with nitroglycerin. Do not administer nitroglycerin if the patient has received or taken jolly sphodiesterase (PDE-5) inhibitors such as sildenafil, tadalafil or vardenafil within the last 24 to 72 hours., Routine perflutren protein-A microspheres (OPTISON) Given 12/21 9:15 AM EDT 1.5 mLs 0.22 mg/mL injection 1.5 mL 1.5 mL, Intravenous, ONCE PRN, 1 dose, Starting on Thu01/08/18 at 0942, Until Thu01/08/18 at 0915, for enhancement of sub-optimal echo images, Echo Lab (Intra-Procedure), Routine rivaroxaban (XARELTO) tablet 20 mg Given 01/10/2018 5:09 PM EDT 20 mg 20 mg, Oral, EVERY EVENING, First dose on Thu01/09/18 at 1500, Until Discontinued, Routine Given 01/09/2018 2:46 PM EDT 20 mg simvastatin (ZOCOR) tablet 20 mg Given 01/10/2018 8:49 PM EDT 20 mg 20 mg, Oral, NIGHTLY, First dose on Thu01/08/18 at 2100, Until Discontinued, Routine Given 01/09/2018 8:23 PM EDT 20 mg Given 01/08/2018 9:18 PM EDT 20 mg sodium chloride 0.9 % flush 5 mL Given 01/11/2018 1:15 AM EDT 5 mLs 5 mL, Intravenous, EVERY 12 HOURS, First dose on Thu01/08/18 at 0115, Until Discontinued, Routine Given 01/10/2018 8:50 PM EDT 5 mLs Given 01/08/2018 12:23 PM EDT 5 mLs sodium chloride 0.9 % flush 5 mL Given 01/11/2018 9:00 AM EDT 5 mLs 5 mL, Intravenous, 2 TIMES DAILY, First dose on Thu01/08/18 at 0115, Until Discontinued, Routine Given 01/10/2018 8:51 PM EDT 5 mLs Given 01/09/2018 8:24 PM EDT 5 mLs sodium chloride 0.9 % flush 5-20 mL 5-20 mL, Intravenous, EVERY 1 MIN PRN, S tarting on Thu01/08/18 at 0054, Until Thu01/11/18 at 1442, flush, Flush pertains t o all indwelling lines. Flush per protocol found in the job aid using the link prov ided on this medication record., Routine sodium chloride 0.9 % flush 5-20 mL 5-20 mL, Intravenous, EVERY 1 MIN PRN, S tarting on Thu01/08/18 at 0053, Until Thu01/11/18 at 1442, flush, Flush pertains t o all indwelling lines. Flush per protocol found in the job aid using the link prov ided on this medication record., Routine documented in this encounter Active and Recently Administered Medications Times are shown in EDT. Scheduled Medication Order 01/09/2018 01/10/2018 01/11/2018 aspirin chewable tablet 81 mg 0821 (Given - Provider: Skye Paris, RN) 0931 (Given - Provider: Skye Paris RN) 0828 (Given - Provider: Memo Márquez, RN) 81 mg, Oral, DAILY, First dose on Thu at 0145, Until Discontinued, Routine DILTiazem (CARDIZEM CD) ER capsule 180 mg 0829 (Given - Provider: Memo Márquez, RN) 180 mg, Oral, DAILY, First dose on Thu at 0900, Until Discontinued, DO NOT CRUSH OR OPEN, Routine dilTIAZem (CARDIZEM) tablet 30 mg (CANCELED) 0607 (Giv en - Provider: Wiliam Benson RN)1151 (Given - Provider: Skye Paris, KRIS)1726 (Given - Provider: Skye Paris RN)2327 (Given - Provider: Alana Santoyo, KRIS) 0513 (Given - Provider: Alana Santoyo, KRIS) 30 mg, Oral, EVERY 6 HOURS SCHEDULED, Fi rst dose on Thu01/08/18 at 0800, Until Discontinued, Routine dilTIAZem (CARDIZEM) tablet 30 mg (COMPLETED) 09 (Given - Provider: Skye Paris RN) 30 mg, Oral, ONCE, 1 dose, 01/10/18 at 0900, Routine DILTiazem (CARDIZEM) tablet 60 mg (COMPLETED) 1456 (Given - Provider: Skye Paris RN)2049 (Given - Provider: Amber Burns, KRIS)2200 (Not Given - Provider: Amber Burns, KRIS - Reason: See comment - Comment: given [id number] (see mar) per pt request) 60 mg, Oral, EVERY 8 HOURS SCHEDULED, 2 doses, First dose on 01/10/18 at 1400, Last dose on 01/10/18 at 2200, Routine docusate sodium (COLACE) capsule 100 mg 0822 (Not Give n - Provider: Skye Paris RN - Reason: Patient/family refused)2100 (Not Given - Provider: Alana Santoyo RN - Reason: Patient/family refused) 0900 (Not Given - Provider: Skye Paris RN - Reason: Contraindicated)2100 (Not Given - Provider: Amber Burns RN - Reason: Patient/family refused) 0900 (Not Given - Provider: Memo Márquez RN - Reason: Patient/family refused) 100 mg, Oral, 2 TIMES DAILY, First dose on Thu01/08/18 at 0115, Until Discontinued, Routine famotidine (PEPCID) tablet 20 mg 0821 (Given - Provider: Carlin Paris, KRIS) 0932 (Given - Provider: Skye Paris, KRIS) 0829 (Given - Provider: Memo Márquez, RN) 20 mg, Oral, DAILY, First dose on Thu at 0900, Until Discontinued, Routine insulin glargine VIAL injection 40 Units 2021 (Given - Provider: Alana Santoyo RN) 2048 (Given - Provider: Amber Burns RN) 40 Units, Subcutaneous, EVERY 24 HOURS, First dose on Thu01/09/18 at 2100, Until Discontinued, Routine insulin lispro (HumaLOG) VIAL injection 2-8 Units (CAN CELED) 0800 (Given - Provider: Skye Paris RN - Comment: [phone] (Given - Provider: Skye Paris RN - Comment: [phone] (Given - Provider: Skye Paris RN - Comment: [phone]) 2-8 Units, Subcutaneous, 3 TIMES DAILY B EFORE MEALS, First dose on Thu01/08/18 at 1730, Until Discontinued, CORRECTION BOLUS Moderate BG 140 - 160 Give 2 units BG 161 - 200 Give 4 units BG 201 - 240 Give 6 units BG greater than 240, give 8 units and recheck BG in 2 hours.If BG less than 240 after two hours, give no insulin and resume prior schedule. If BG remains greater than 240, repeat 8 units ( no more than three times) & call for new basal insulin orders. DO NOT hold if NPO, unless specifically told to do so., Routine insulin lispro (HumaLOG) VIAL injection 3-12 Units(Christina ked Group 1) 1653 (Given - Provider: Skye Paris RN) 0752 (Given - Provider: Skye Paris RN)1152 (Given - Provider: Skye Paris, KRIS)1709 (Given - Provider: Skye Paris RN) 0836 (Given - Provider: Memo Márquez , RN)1218 (Given - Provider: Memo Márquez, RN) 3-12 Units, Subcutaneous, 3 TIMES DAILY BEFORE MEALS, First dose on 01/09/18 at 1630, Until Discontinued, CORRECTION BOLUS Resistant to insulin obese patient or TDD (total daily dose of all insul in needed to achieve glycemic control) g reater than 60 units BG 140 - 160 Give 3 units BG 161 - 200 Give 6 units BG 201 - 240 Give 9 units BG greater than 240, give 12 units and recheck BG in 2 hours.If BG less than 240 after two hours, give no insulin and resume prior schedule. If BG remains greater than 240, repeat 12 units (no more than three times) & call for new basal insulin orders. DO NOT h old if NPO, unless specifically told to do so., Routine insulin lispro (HumaLOG) VIAL injection 8 Units 1726 ( Given - Provider: Skye Paris, KRIS) 0753 (Given - Provider: Skye Paris RN)1152 (Given - Provider: Skye Paris RN)1709 (Given - Provider: Skye Paris RN) 0837 (Given - Provider: Memo Márquez, RN)1324 (Given - Provider: Sonal Dooley RN) 8 Units, Subcutaneous, 3 TIMES DAILY WIT H MEALS, First dose on 01/09/18 at 1700, Until Discontinued, ME[employer] If a range is ordered, give smaller dose with less carbohydrate intake. Hold if not eating, Routine lisinopril (PRINIVIL;ZESTRIL) tablet 10 mg 0822 (Given - Provider: Skye Paris RN) 0931 (Given - Provider: Skye Paris, KRIS) 0828 (Gi ady - Provider: Memo Márquez, RN) 10 mg, Oral, DAILY, First dose on Thu at 0900, Until Discontinued, Routine magnesium oxide (MAG-OX) tablet 400 mg 0821 (Given - P rovider: Skye Paris RN)2022 (Given - Provider: Alana Santoyo, RN) 09 (Given - Provider: Skye Paris RN)2048 (Given - Provider: Amber Burns, RN) 08 (Given - Provider: Memo Márquez, RN) 400 mg, Oral, 2 TIMES DAILY, First dose on Thu01/08/18 at 0245, Until Discontinued, Routine magnesium sulfate 1g in dextrose 5% 100mL (COMPLETED) 0753 (New Bag - Provider: Skye Paris RN)0853 (Stopped - Provider: Skye Paris RN) 1 g, Intravenous, ONCE, 1 dose, 01/10/18 at 0800, A dminister over 60 Minutes metoprolol succinate (TOPROL-XL) XL tablet 100 mg 0838 (Given - Provider: Memo Márquez RN) 100 mg, Oral, DAILY, First dose on Thu at 0900, Until Discontinued, DO NOT CRUSH OR OPEN, Routine metoprolol tartrate (LOPRESSOR) tablet 25 mg (CANCELED ) 0607 (Given - Provider: Wiliam Benson RN)1151 (Given - Provider: Skye Paris RN) 25 mg, Oral, EVERY 6 HOURS SCHEDULED, Fi rst dose on Thu01/08/18 at 0745, Until Discontinued, Routine metoprolol tartrate (LOPRESSOR) tablet 25 mg (COMPLETE D) 1447 (Given - Provider: Skye Paris, KRIS) 25 mg, Oral, ONCE, 1 dose, 01/09/18 at 1245, Routine metoprolol tartrate (LOPRESSOR) tablet 50 mg (CANCELED ) 2029 (Given - Provider: Alana Santoyo, KRIS) 50 mg, Oral, EVERY 12 HOURS SCHEDULED (2 times per day), First dose on Thu01/09/18 at 1415, Until Discontinued, Routine metoprolol tartrate (LOPRESSOR) tablet 50 mg (CANCELED) 930 (Given - Provider: Skye Paris, KRIS)2048 (Given - Provider: Amber Burns, KRIS) 50 mg, Oral, EVERY 12 HOURS SCHEDULED (2 times per day), First dose on Thu01/10/18 at 0900, Until Discontinued, Routine rivaroxaban (XARELTO) tablet 20 mg 1446 (Given - Provi tacho: Skye Paris RN) 170 (Given - Provider: Skye Paris RN) 20 mg, Oral, EVERY EVENING, First dose o n 01/09/18 at 1500, Until Discontinued, Routine simvastatin (ZOCOR) tablet 20 mg 2022 (Given - Provider: Frank Santoyo RN) 2048 (Given - Provider: Amber Burns RN) 20 mg, Oral, NIGHTLY, First dose on Thu01/08/18 at 2100, Until Discontinued, Routine sodium chloride 0.9 % flush 5 mL 0115 (Not Given - Pro vider: Wiliam Benson RN - Reason: Order parameters not met)131 (Not Given - Provider: Skye Paris RN - Reason: Contraindicated) 011 (Not Given - Provider: Alana Lala erd, RN - Reason: See comment - Comment: given earlier)131 (Not Given - Provider: Skye Paris RN - Reason: Contraindicated)2049 (Given - Provider: Amber Burns RN) 011 (Given - Provider: Amber Burns RN)1315 (Not Given - Provider: Sonal Dooley RN - Reason: Patient/family refused) 5 mL, Intravenous, EVERY 12 HOURS, First dose on Thu01/08/18 at 0115, Until Discontinued, Routine sodium chloride 0.9 % flush 5 mL 0822 (Given - Provide r: Skye Paris RN)2023 (Given - Provider: Alana Santoyo RN) 09 (Not Given - Provider: Skye Paris RN - Reason: Contraindicated)2050 (Given - Provider: Amber Burns RN) 0900 (Given - Provider: Memo Márquez RN) 5 mL, Intravenous, 2 TIMES DAILY, First dose on Thu01/08/18 at 0115, Until Discontinued, Routine Continuous Medication Order 01/09/2018 01/10/2018 01/11/2018 heparin 25,000 units in dextrose 5% 500 mL infusion (C ANCELED) 0136 (New Bag - Provider: Wiliam Benson RN)1518 (Stopped - Provider: Skye Paris RN) 0-5,000 Units/hr (0-100 mL/hr), Intraven ous, at 0-100 mL/hr, CONTINUOUS, Starting Thu01/08/18 at 1315, Until 01/10/18 at 1501, Discontinue 30 minutes after giving Rivaroxiban Begin infusion at 1,300 units per hr (15 units/kg/hr). MAX INITI AL infusion rate is 1,750 units/hr Target Heparin UFH Level (anti-Xa activity) = 0.3 - 0.7 IU/mL Start adjustment schedule 6 hours after starting infusion. If Hep sinan UFH Level is: - less than 0.1 IU/mL , administer PRN bolus and increase rate by 350 units per hr (4 units/kg/hr) - 0.1 - 0.29 IU/mL, administer PRN bolus and increase rate by 200 units per hr (2 uni ts/kg/hr) - 0.3 - 0.7 IU/mL, No Change - 0.71 - 0.85 IU/mL, decrease rate by 100 units per hr (1 units/kg/hr) - 0.86 - 1.05 IU/mL, stop infusion for 30 minutes, then decrease rate by 200 units per hr (2 units/kg/hr) - Greater than 1.05 IU/mL, stop infusion for 60 minutes, then decrease rate by 250 units per hour (3 units/kg/hr) Repeat Heparin UFH Level 6 hours after initiating heparin. Then [address] each dose adjustment. When 2 consecu tive Heparin UFH Level within target range of 0.3 - 0.7 IU/mL, change Heparin UFH Level to once every 24 hours with A.M. labs while on heparin. RN to order required Heparin UFH Level - Per Protocol, Routine PRN Medication Order 01/09/2018 01/10/2018 01/11/2018 acetaminophen (TYLENOL) tablet 650 mg 09 32 (Given - Provider: Skye Paris RN) 650 mg, Oral, EVERY 4 HOURS PRN, Startin g Thu01/08/18 at 0055, Until 01/11/18 at 1442, Pain, Headaches, Maximum dose of acetaminophen is 4000 mg from all sources in 24 hours., Routine dextrose 50% IV syringe 25-50 mL(Linked Group 2) 25-50 mL (12.5-25 g), Intravenous, EVERY 1 HOUR PRN, Starting 01/09/18 at 1354, Until Thu01/11/18 at 1442, Low blood sugar, For BG 50-70: 120 mL Juice or Regular (not diet) soda OR 12.5 gram (25 mL ) Dextrose 50% IV OR, if no IV access, 1 mg Glucagon IM. Recheck BG in 30 minutes. May repeat juice, dextrose or glucagon once per episode For BG less than 50: 240 mL Juice or Regular (not diet) sod a OR 25 grams (50 mL) Dextrose 50% IV OR , if no IV access, 1 mg Glucagon IM. Recheck BG in 30 minutes. May repeat juice, dextrose, or glucagon once per episode. To avoid extravasation, push Dextrose 50% SLOWLY (3 mL over 1 minute) in a pa tent, running IV, preferably a central line. For persistent hypoglycemia, consider longer-acting treatment for the duration of the active insulin., Routine glucagon (human recombinant) injection SolR 1 mg(Linked Group 2) 1 mg, Intramuscular, EVERY 1 HOUR PRN, S tarting 01/09/18 at 1354, Until Thu01/11/18 at 1442, Low blood sugar, For BG 50-70: 120 mL Juice or Regular (not diet) soda OR 12.5 gram (25 mL) Dextrose 50% IV OR, if no IV access, 1 mg Glucagon I M. Recheck BG in 30 minutes. May repeat juice, dextrose or glucagon once per episode For BG less than 50: 240 mL Juice or Regular (not diet) soda OR 25 grams (50 mL) Dextrose 50% IV OR, if no IV acc ess, 1 mg Glucagon IM. Recheck BG in 30 minutes. May repeat juice, dextrose, or glucagon once per episode. To avoid extravasation, push Dextrose 50% SLOWLY (3 mL over 1 minute) in a patent, running IV, preferably a central line. For persistent hypoglycemia, consider longer-acting treatment for the duration of the active insulin., Routine lidocaine (XYLOCAINE) 10 mg/mL (1 %) injection 3 mg 3 mg (0.3 mL), Subcutaneous, ONCE PRN, 1 dose, Starting Thu01/08/18 at 0053, Until Thu01/11/18 at 1442, for discomfort with PIV insertion, Routine nitroGLYcerin (NITROSTAT) SL tablet 0.4 mg 0.4 mg, Sublingual, EVERY 5 MIN PRN, Sta rting Thu01/08/18 at 0053, Until Thu01/11/18 at 1442, Chest pain, May repeat every 5 minutes for a total of three doses. Notify provider if chest pain not relieve d with nitroglycerin. Do not administer nitroglycerin if the patient has received or taken phosphodiesterase (PDE-5) inhibitors such as sildenafil, tadalafil or vardenafil within the last 24 to 72 hours., Routine sodium chloride 0.9 % flush 5-20 mL 5-20 mL, Intravenous, EVERY 1 MIN PRN, S tarting Thu01/08/18 at 0054, Until Thu01/11/18 at 1442, flush, Flush pertains to all indwelling lines. Flush per protocol found in the job aid using the link provided on this medication record., Routine sodium chloride 0.9 % flush 5-20 mL 5-20 mL, Intravenous, EVERY 1 MIN PRN, S tarting Thu01/08/18 at 0053, Until Thu01/11/18 at 1442, flush, Flush pertains to all indwelling lines. Flush per protocol found in the job aid using the link provided on this medication record., Routine Linked Groups Order Group 1: POCT Fingerstick Glucose (CANCELED) Routine, 4 TIMES DAILY BEFORE MEALS & AT BEDTIME, First occurrence on 01/09/18 at 1700, Until Specified
Consider choosing FOUR TIMES A DAY BEFORE MEALS AND AT BEDTIME as frequency fo r: Patients who have a good hypoglycemia awareness: -Patients who are eating meals during the day and sleeping at night -Patient who are otherwise stable And insulin lispro (HumaLOG) VIAL injection 3-12 UnitsJump to med 3-12 Units, Subcutaneous, 3 TIMES DAILY BEFORE MEALS, First dose on 01/09/18 at 1630, Until Discontinued
CORRECTION BOLUS Resistant to insulin obese patient or TDD (to libra daily dose of all insulin needed to achieve glycemic control) greater than 60 units BG 140 - 160 Give 3 units BG 161 - 200 Give 6 units BG 201 - 240 Give 9 units BG greater than 240, give 12 units and recheck BG in 2 hours.If BG less than 240 after two hours, give no insulin and resume prior schedule. If BG remains greater carissa n 240, repeat 12 units (no more than thr ee times) & call for new basal insulin orders. DO NOT hold if NPO, unless specifically told to do so.
Routine Group 2: dextrose 50% IV syringe 25-50 mLJump to med 25-50 mL (12.5-25 g), Intravenous, EVERY 1 HOUR PRN, Starting 01/09/18 at 1354, Until 01/11/18 at 1442, Low blood sugar
For BG 50- 70: 120 mL Juice or Regular (not t) soda OR 12.5 gram (25 mL) Dextrose 50 % IV OR, if no IV access, 1 mg Glucagon IM. Recheck BG in 30 minutes. May repeat juice, dextrose or glucagon once per epis ode For BG less than 50: 240 mL J uice or Regular (not diet) soda OR 25 grams (50 mL) Dextrose 50% IV OR, if no IV access, 1 mg Glucagon IM. Recheck BG in 30 minutes. & nbsp;May repeat juice, dextrose, or gluc agon once per episode. To avoid extravasation, push Dextrose 50% SLOWLY (3 mL over 1 minute) in a patent, running IV, preferably a central line.&nb sp;For persistent hypoglycemia, consid er longer-acting treatment for the duration of the active insulin.
Routine Or glucagon (human recombinant) injection SolR 1 mgJump to med 1 mg, Intramuscular, EVERY 1 HOUR PRN, S tarting 01/09/18 at 1354, Until 01/11/18 at 1442, Low blood sugar
For BG 50-70: 120 mL Juice or Regular (not diet) soda OR 12. 5 gram (25 mL) Dextrose 50% IV OR, if no IV access, 1 mg Glucagon IM. Recheck BG in 30 minutes. May repeat juice, dextrose or glucagon once per episode * *For BG less than 50: 240 mL Juice or Re gular (not diet) soda OR 25 grams (50 mL) Dextrose 50% IV OR, if no IV access, 1 mg Glucagon IM. Recheck BG in 30 minutes. May repea t juice, dextrose, or glucagon once per episode. To avoid extravasation, push Dextrose 50% SLOWLY (3 mL over 1 minute) in a patent, running IV, preferably a central line. For persi stent hypoglycemia, consider longer-acti ng treatment for the duration of the active insulin.
Routine documented in this encounter Care Teams Veneer Layer Relationship Specialty Start Date End Date Ruben Gillette MD PCP - General General Internal Medicine 01/11/18 9 [facility] [place] [address] documented as of this encounter
--- OUTSIDE RECORDS SUMMARY | 2022-01-05 21:01 | XMS_ITS | Encounter Summary ---
:1950 Author Organization [facility] [place] [address] Care Team Providers Name Role Phone Ruben Gillette MD Primary Care Provider Reason for Visit Reason Onset Date Comments VNA Calls 01/21/2018 Encounter Details Date Type Department Care Team Description 01/21/2018 Telephone Internal Medicine at [facility] Charity Landa VNA Calls [address] [place] [address] Social History Tobacco Use Types Packs/Day [...] this encounter Miscellaneous Notes Telephone Encounter - Charity Landa - 01/21/2018 1:44 PM EDT VNA or Hospice nurse calling from patients home: no Name of person calling: Lilibeth Call back number: [phone] ext [phone] Reason for call: calling stating patient has been doing great and completely normal every visit. They are wondering if she can be discharged from [facility] Nurse Contacted via: Message: y Call: n Pager: n documented in this encounter Plan of Treatment Not on filedocumented as of this encounter Visit Diagnoses Not on filedocumented in this encounter Care Teams Tank Builder Relationship Specialty Start Date End Date Ruben Gillette MD PCP - General General Internal Medicine 01/11/[address] [facility] GENERAL [place]NAL [place] [address] documented as of this encounter
--- OUTSIDE RECORDS SUMMARY | 2022-01-05 21:01 | XMS_ITS | Encounter Summary ---
:1950 [place] [address] Care Team Providers Name Role Phone Dean Camilo Primary Care Provider Encounter Details Date Type Department Care Team Description 03/07/2021 Telephone Wound Care at [facility], [facility] [place] [address] Social History Tobacco Use Types Packs/Day [...] this encounter Miscellaneous Notes Telephone Encounter - Kaleigh Sahni LPN - 03/07/2021 2:40 PM EDT Phone call from [place] [employer] [place] [employer]. They need a letter of medical necessity faxed to [place] to get a ride for her appointment tomorrow. Letter written and faxed to [phone]. Kaleigh Sahni LPN documented in this encounter Plan of Treatment Not on filedocumented as of this encounter Visit Diagnoses Not on filedocumented in this encounter Care Teams Crisis Clinician Relationship Specialty Start Date End Date Dean Camilo PA PCP - General Internal Medicine 02/01/21 [facility] [address] [place] [address] documented as of this encounter
--- OUTSIDE RECORDS SUMMARY | 2022-01-05 21:01 | XMS_ITS | Encounter Summary ---
:1950 Author Organization [facility] [place] [address] Care Team Providers Name Role Phone Dean Camilo Primary Care Provider Reason for Referral Consultation (Routine) - Closed Specialty Diagnoses / Procedures Referred By Contact Refer red To Contact Wound Care Diagnoses Type 2 diabetes mellitus with hyperglycemia, with long-term current use of insulin Skin ulcer of toe of right foot, limited to breakdown of skin Roni Vargas MD [facility] [place] [address] [place] [address] Referral ID Status Reason Start Date Expiration Date Visits V isits Requested Authorized [id number] Closed Consult, 02/07/2021 02/07/2022 1 1 Test & Treat Encounter Details Date Type Department Care Team Description 02/07/2021 TH Visit Endocrinology at [facility] Roni Germain, Type 2 diabetes mellitus wit h hyperglycemia, with long-term current use of insulin; (TeleHealth) [facility] Skin ulcer of toe of right foot, limited [place] [address] CENTER [phone] [place] [address] Social History Tobacco Use Types Packs/Day Years [...] documented as of this encounter Progress Notes Roin Vargas MD - 02/07/2021 10:00 AM EDT Images from the original note were not included. We are seeing this 70 year old woman to review diabetes care as part of the [facility] Diabetes Outreach Program: Preliminary material: From Court Correa: Pt lives with her Niece, Alicia. Alicia moved in with Hope 6 years ago. At that time Hope had stage 3 ulcer that took 4 months to heal. Primary Care Provider: Dean Camilo Physician Intervention Nurse Date of Diabetes Diagnosis: Gestational diabetes 1966, Gestational Diabetes 1986, 1991 Diabetes dx Current Diabetes Regimen: ???I have no idea what most of my medications are for, but I take them.? Tresiba 20 units between 10:30pm-3:00am ???before bed when my eyes decide to shut? Humalo units typically eats 2 meals/day, 24 units total. ???If I remember, I take it beforethe meal. Sometimes I take it after the meal? Metformin 2000mg total. 1000mg 9:30am-11:30am takes with breakfast and night time 1000mg egpmxks59:30pm and 3am ??? Current Other Medications: ??? Metoprolol succinate 100mg 1x/day (different than med list) Diabetes Medications Previously tried or failed in the past (indicated if too expensive): ??? She can???t think of any ??? Weight and weight pattern for the past year: (Court insert GRAPH) Summary of diabetes labs and problem list: cre 1.2-1.9 HA1c 11.2, 10 .6 eGFR 30-44 Summary of Home Monitoring: Recent HGBA1c: Not on CGM: Average BG: ____mg/dL (7d), ____ mg/dL (14d), ____ mg/dL (30d - if available) 2-week glucometer report all Fasting BGs and, if available, Average glucose post-meal: (Court Insert CHART as much information as we have) When upset her BGs are high 01/22/2021 3:05am 133 01/16 7:18am 231 01/15 7:08am 143 01/14 6:14pm 177 01/14 8:32am 137 01/13 6:38pm 206 01/13 6:45am 244 01/12 9:48am 95 01/11 9:11am 135 01/10 8:04am 82 01/09 9:32am 122 01/08 7:39am 95 01/07 5:57pm 116 01/07 9:02am 114 01/06 7:44am 141 17 9:07pm 276 01/05 7:04am 124 16 8:34am 85 16 8:05am 70 /15 8:50am 93 Other Information: Diet: Both Alicia and Hope do the grocery shopping. Eats twice a day, sometimes 3x/day Ham mashed potato and mixed vegetables Cereal rice chex 1.5 cups, 2% milk 4oz. There is fruit in the house, doesn???t eat fruit, doesn???t like fruit. Likes vegetables and eats vegetables. 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 Mental Health: did not ask Dental: no teeth, has dentures, they do not fit so she does not wear them. they hurt her mouth and tear her gums. Dr. Gregory made them and is now retired. Pt is willing to see a new dental provider;she suggests [facility]. Court will help facilitate a visit. Feet: states she would like to see a service member for ingrown toenails. She can feel feet, however they are sensitive. Wants/needs new pair of shoes. Current sneakers hurt her feet. she is ok with Aliciasetting up podiatry referral. Diabetes Distress Scale: (CORUT will insert) TODAYS VISIT: Infected R 5th toe ulcer- blister ulcer Needs appt w podiatry Regimen ??? Tresiba 20 units between 10:30pm-3:00am ???before bed when my eyes decide to shut? Humalo units typically eats 2 meals/day, 24 units total. ???If I remember, I take it beforethe meal. Sometimes I take it after the meal? Metformin 2000mg total. 1000mg 9:30am-11:30am takes with breakfast and night time 1000mg [id number]:30pm and 3am Home glucose monitoring: Recommended frequency fbs Results Episodes of hypoglycemia Warning signs: Frequency of self treated episodes Frequency of episodes needing assistance A couple in the past Dietary plan: 24 hour diet recall: 2 x a day, occ popcorn snack Uses MOW Breakast 2 toast Coffee oj AM snack Lunch Grilled cheese Afternoon snack Dinner Hamburger Rice green After dinner snack Exercise routine Preferred exercise walking Frequency A few times a week Diabetes complications review eyes No retinopathy feet NO Abnormal shape NO Symptoms but likely insensate Foot ulcers: YES active ulcer Prior amputations Overall risk of foot problems Low Medium High IN PAST Used prescription Inserts Shoes kidneys none Autonomic neuropathies : NO Early satiety /nausea (gastroparesis) ? Problems emptying bladder NO Unable to detect low sugars cardiac NO chest pain on exertion ? shortness of breath on 1 flight of stairs NO Shortness of breath at rest YES history of AF but NO Cardiac stent NO Cardiac bypass surgery NOCongestive heart failure ?Peripheral vascular disease: Neck arteries (carotids) NO Stroke PE TELEMED Pleasant elderly woman who has trouble hearing R foot 5th toe has a 1.5 x 1 cm shallow appearing ulcer on dorsolateral surface No surrounding erythema 1) DM2 - Ms Kehinde has very poorly controlled diabetes by HA1c (> 10 %) but her fbs looks reasonable and she has had low glucose levels in the past. Her diet is heavy on carbs - meals on wheels, toast, sandwiches , and she may not always be taking her meal insulin with good timing. In addition she has significant diarrhea with incontinence which may be related to using metformin at high dose rather than metformin extended release The goal for her is an HA1c under 8 % but if we can get this under 9 % her risk of signficant dehydration would be diminished and that should be the preliminary goal. To avoid frequent low sugars, I recommend adding a GLP1 like trulicuty 1.5 once a week or ozempic 1 mg a week, while cutting back on the treisba by 10 %. I also recommend reducing The metformin dose to 500 mg of ER form bid to reduce di arrhea. The GLP1 shoud sensitize her to insulin plus induce a 10-15 lb weight loss. A dietary consult to see what can be done to have better diet composition (less reliacne on carbs) would be helpful. 2) foot ulcer - she says there are no available podiatrists. While her current foot lesion seems well contained , it could worsen , never heal or recur unless she gets proper footwear. I will refer [facility] podiatry to get a consultation for a footwear prescription. Recommend trulicity 0.75 go to 1.5 Change metformin to ER or XL Metformin 500 bid Reduce tresiba 10 % [employer] Dates for 2020 ___ consultation with primary care physician practice- 3 x a year ___ consultation with endocrinology/marketing automation specialist- 1-2 times a year ___ consultation with informatics educator 2 times per year ___ consultation with diabetes dietitian 2 times per year documented in this encounter Plan of Treatment Scheduled Referrals Name Type Priority Associated Diagnoses Order S chedule Referral to Outpatient Referral Routine Type 2 diabetes Order ed: Podiatry mellitus with 02/07/2021 hyperglycemia, with long-term current use of insulin Skin ulcer of toe of right foot, limited to breakdown of skin documented as of this encounter Visit Diagnoses Diagnosis Type 2 diabetes mellitus with hyperglyce robert, with long-term current use of insulin Skin ulcer of toe of right foot, limited to breakdown of skin documented in this encounter Care Teams Insurance Sales Manager Relationship Specialty Start Date End Date Dean Camilo PA PCP - General Internal Medicine 02/01/21 [address] [place] [address] documented as of this encounter
--- OUTSIDE RECORDS SUMMARY | 2022-01-05 21:02 | XMS_ITS | Encounter Summary ---
:1950 Author Organization [facility] Address [address] [place] [address] Care Team Providers Name Role Phone Hoa Jacques APRN Primary Care Provider [phone] Encounter Details Date Type Department Care Team Description 10/06/2011 Hospital XRay at [facility] Seronegative arthritis; Encounter [facility] Orlando Encinas MD [facility] [place] [address] Osteoarthrosis, unspecified whether gene ralized or localized, [place] [id number] Social History Tobacco Use Types Packs/Day Years Used Date Former Smoker Cigarettes Quit: 06/22/18 78 Comments: per phone call 01/02/2011 Alcohol Use Standard Drinks/Week Comments Not Asked 0 (1 standard drink = 0.6 oz pure alcoho l) Sex Assigned at Date Recorded Not on file documented as of this encounter Medications at Time of Discharge Medication Sig Dispensed Refills Start Date End Date metFORMIN (GLUCOPHAGE) Take 1,000 mg by 0 500 mg tablet mouth 2 times daily (with meals). 1000 mg = 2 tablets simvastatin (ZOCOR) 20 mg Take 20 mg by mouth 0 01/11/2018 tablet nightly. pioglitazone (ACTOS) 30 Take 30 mg by mouth 0 03/29/2014 mg tablet daily. metoprolol tartrate Take 50 mg by mouth 0 03/30/2014 (LOPRESSOR) 50 mg tablet 2 times daily. glipiZIDE (GLUCOTROL) 10 Take 10 mg by mouth 0 03/29/2014 mg 24 hr tablet daily. CIS Free Text Med - BD 0 05/16/2007 alcohol swabs insulin glargine (LANTUS) 0 05/16/2007 03/29/2014 100 unit/mL injection folic acid (FOLVITE) 1 mg 0 05/16/2007 03/29/2014 tablet CALCIUM ORAL 0 05/16/2007 03/29/2014 documented as of this encounter Plan of Treatment Not on filedocumented as of this encounter Procedures Procedure Name Priority Date/Time Associated Diagnosis Comme nts XR HANDS MIN 3 Routine 10/06/2011 4:06 PM Seronegative Results for this VIEWS BILAT EDT arthritis procedure are in Osteoarthrosis, the results unspecified whether section. generalized or localized, hand documented in this encounter Results XR hands bilateral (10/06/2011 4:06 PM EDT) Anatomical Region Laterality Modality Hand Bilateral Radiographic Imaging Specimen (Source) Anatomical Collection Method Collection Time Re ceived Time Location / / Volume Laterality 10/06/2011 4:06 PM EDT Narrative 10/06/2011 5:18 PM EDT Examination BILATERAL HANDS/BILAT Clinical History Reason for exam and clinical history: H/ O seronegative RA. ?erosions.; Comparison April 2007. Findings The bone mineralization is normal. ??The soft tissues surrounding the right 3rd PIP joint is swollen. Joints- ? 1. Interphalangeal joints-diffuse DIP joint osteoarthropathy characterized by small osteophyte formation and eccent charisma joint space narrowing. ??The cystic changes in the right 2nd and 3rd middle phalangeal heads are more prominent. ?? No ankylosis or periostitis. ??The osteo phytes arising from the right 3rd DIP joint hve also increased. ??And there is newly developed narrowed 3rd PIP joint space narrowing. ??The osteoarthropathy of scattered remaining PIP joints are similar. ? 2. MCP joints-no erosions. ? 3. Radiocarpal joint-there are no erosions. ??Specifically, the ulnar styloid normal. Impression ? 1. Osteoarthropathy of multiple I P joints. ? 2. These cystic change and osteop hyte formation, most prominent in the right 2nd and 5th DIP and right 5th PIP joints have progressed since the last examination. ? 3. Findings likely represent prog ression of osteoarthropathy rather than inflammatory osteoarthropathy. Procedure Note Mary Kay Ding MD - 10/06/2011Formatt ing of this note might be different from the original. Examination BILATERAL HANDS/BILAT Clinical History Reason for exam and clinical history: H/ O seronegative RA. ?erosions.; Comparison April 2007. Findings The bone mineralization is normal. The s oft tissues surrounding the right 3rd PIP joint is swollen. Joints- 1. Interphalangeal joints-diffuse DIP j oint osteoarthropathy characterized by small osteophyte formation and eccent charisma joint space narrowing. The cystic changes in the right 2nd and 3rd middle phalangeal heads are more prominent. No ankylosis or periostitis. The osteoph ytes arising from the right 3rd DIP joint hve also increased. And there is n ewly developed narrowed 3rd PIP joint space narrowing. The osteoarthropathy of scattered remaining PIP joints are similar. 2. MCP joints-no erosions. 3. Radiocarpal joint-there are no erosi ons. Specifically, the ulnar styloid normal. Impression 1. Osteoarthropathy of multiple IP join ts. 2. These cystic change and osteophyte f ormation, most prominent in the right 2nd and 5th DIP and right 5th PIP joints have progressed since the last examination. 3. Findings likely represent progressio n of osteoarthropathy rather than inflammatory osteoarthropathy. Orlando Encinas MD IMG DX ORDERABLES documented in this encounter Visit Diagnoses Diagnosis Seronegative arthritis Other specified arthropathy, site unspec ified Osteoarthrosis, unspecified whether gene ralized or localized, hand documented in this encounter Care Teams Stretcher And Drier Relationship Specialty Start Date End Date Hoa Jacques APRN PCP - General 06/24/10 12/19/17 documented as of this encounter
--- OUTSIDE RECORDS SUMMARY | 2022-01-05 21:02 | XMS_ITS | Encounter Summary ---
:1950 Author Organization [facility] [place] [address] Care Team Providers Name Role Phone Hoa Jacques APRN Primary Care Provider [phone] Reason for Visit Reason Comments Suture / Staple Removal Encounter Details Date Type Department Care Team Description 08/05/2011 Office Visit Dermatology David Ayoub, Visit for suture [address] MD removal (Primary Dx) [address] [place], [place] DERMATOLOGY [id number] [place] [address] [phone] (Wo rk) Social History Tobacco Use Types [...] as of this encounter Visit Diagnoses Diagnosis Visit for suture removal - Primary Encounter for removal of sutures documented in this encounter Care Teams Osteopathic Physician Relationship Specialty Start Date End Date Hoa Jacques APRN PCP - General 06/24/10 12/19/17 documented as of this encounter
--- OUTSIDE RECORDS SUMMARY | 2022-01-05 21:02 | XMS_ITS | Encounter Summary ---
:1950 Author Organization [facility] [place] [address] Care Team Providers Name Role Phone Hoa Jacques APRN Primary Care Provider [phone] Reason for Visit Reason Comments Procedure Encounter Details Date Type Department Care Team Description 07/29/2011 Office Visit Dermatology David Ayoub Nevus (Primary Dx) [address] [place], [place] [address] DERMATOLOGY [phone] [place], [place] [address] (Wo rk) Social History Tobacco Use Types Packs/Day Years Used Date Former Smoker Cigarettes Quit: 06/22/18 80 Comments: per phone call 01/02/2011 Alcohol Use Standard Drinks/Week Comments Not Asked 0 (1 standard drink = 0.6 oz pure alcoho l) Sex Assigned at Date Recorded Not on file documented as of this encounter Progress Notes David Ayoub MD - 07/29/2011 11:10 AM EST Clinical Impression: Painful bothersome nevi: site A right nasal tip, site B right upper nasolabial fold. Presurgical size of lesions: 4mm each Deep Suture: 5-0 vicryl on site A only Surface Suture: 5-0 ethilon both sites A and B F/U: One week for suture removal and biopsy results. Indications for surgery, possible adverse outcomes, and activity restrictions discussed. Informed verbal consent was obtained. Skin surface was prepared with 4% Chlorhexidine and draped in the usual sterile manner. Local anesthesia with 1% Lidocaine, 1/100/000 Epinephrine and 0.1mEq/ml Bicarbonate. Using a number fifteen blade, an elliptical excision was carried out first around site B and then around site A. Undermining performed on site A with specimen to pathology. Cutaneous closure was performed on both sites A and B. End length of suture line of site A was 8cm. Follow-up in seven days for suture removal and biopsy results by Dr. Ayoub in [facility]. Pathology Addendum per [facility] 08/01/11 : Sites A and B : Intradermal nevus documented in this encounter Plan of Treatment Not on filedocumented as of this encounter Visit Diagnoses Diagnosis Nevus - Primary Benign neoplasm of skin, site unspecifie d documented in this encounter Care Teams Artist Mannequin Coloring Relationship Specialty Start Date End Date Hoa Jacques APRN PCP - General 06/24/10 12/19/17 documented as of this encounter
--- OUTSIDE RECORDS SUMMARY | 2022-01-05 21:02 | XMS_ITS | Encounter Summary ---
:1950 Author Organization [facility] [place] [address] Care Team Providers Name Role Phone Lana Ramos MD Primary Care Provider Encounter Details Date Type Department Care Team Description 06/20/2010 Office Visit Dermatology David Ayoub MD [address] DERMATOLOGY [place], [place] [address] [place] [address] [phone] (Wo rk) Social History Tobacco Use Types Packs/Day Years Used Date Never Assessed Sex Assigned at Date Recorded Not on file documented as of this encounter Plan of Treatment Not on filedocumented as of this encounter Visit Diagnoses Not on filedocumented in this encounter Care Teams Carpenter Assistant Relationship Specialty Start Date End Date Lana Ramos MD PCP - General 05/14/10 06/23/10 [address] [place], [place] [id number] documented as of this encounter
--- OUTSIDE RECORDS SUMMARY | 2022-01-05 21:02 | XMS_ITS | Encounter Summary ---
:1950 Author Organization [facility] [place] [address] Care Team Providers Name Role Phone Quin Gordon APRN Primary Care Provider [phone] Reason for Referral Physical Therapy (Routine) - Closed by system - unspecified Specialty Diagnoses / Procedures Referred By Contact Refer red To Contact Physical Therapy Diagnoses Gait instability Osteoarthrosis, unspecified whether generalized or localized, lower leg Proximal leg weakness Orlando Encinas MD [facility] [place] [address] Referral ID Status Reason Start Expiration Visits Visits Date Date Requested Authorized [id number] Closed by Evaluate and 04/03/2012 1 1 system - Treat 2 unspecified Reason for Visit Reason Comments Advice Only Encounter Details Date Type Department Care Team Description 10/06/2011 Office Visit Rheumatology at [facility] Orlando Encinas Gait instability; [facility] MD Zoila Seronegative arthritis; [facility] Osteoarth NOS-l/leg; [place], [place] Osteoarth NOS-ankle; [id number] RHEUMATOLOGY DEPT. Osteoarthrosis, unspecified whether gene ralized or localized, hand; [phone] [place], [place] [address] Proximal leg weakness [phone] (Wo rk) Social History Tobacco Use Types [...] Sign Reading Time Taken Comments Blood Pressure 139/77 10/06/2011 1:53 PM EDT Pulse 85 10/06/2011 1:53 PM EDT Temperature - - Respiratory Rate 20 10/06/2011 1:53 PM EDT Oxygen Saturation - - Inhaled Oxygen Concentration - - Weight 96.6 kg (213 lb) 10/06/2011 1:53 PM EDT Height 171.5 cm (5' 7.5) 10/06/2011 1:53 PM EDT Body Mass Index 32.87 10/06/2011 1:53 PM EDT documented in this encounter Patient Instructions Patient InstructionsOrlando Encinas MD - 10/06/2011 3:17 PM EDT Get labs and x-rays today. Call next week for results. Go to PT for leg strengthening. Follow up in 2 months. Call if problems. documented in this encounter Progress Notes Orlando Encinas MD - 10/06/2011 3:36 PM EDT Rheumatology Clinic: Dr. Encinas 10/06/2011 [id number] Dhaval Yee is a 61 y.o. female patient whom we see in consultation for QUIN GORDON APRN in evaluation of a couple of issues. First of all, this is a woman who we've seen intermittently in the clinic since 1997 with a diagnosis of seronegative rheumatoid arthritis, first treated with Plaquenil and then methotrexate. When I last saw her on 05/05/2007, she was doing well in terms of her inflammatory arthritis, but was having more degenerative symptoms. Interestingly, even at that time she brought up problems with both legs, right greater than left. She complained of a sense of the legs being rubbery, uncomfortable, and jumpy. And most of what she sees us about today is perhaps a continuation of that issue. From the inflammatory arthritis perspective, she reports today that she stoppedthe plaquenil and methotrexate about 2-3 years ago, and really noted no untoward effects from that. Nowadays, she treats her arthritic pain with marijuana. When things act up, she'll smoke some marijuana, and it usually only takes 3-4 good hits for her pain to subside. She is not particularly interested in going back on any remittive medications at the moment. We then talked about some falls that she's taken over the last few months. This began with one in July. She then had 3 in August. She had two last week and one the week before. It's very difficult to pin her down on exactly what happens with these falls, but they usually occur when she's out in [employer] [place] working with her rabbits. 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 Initially we thought she was telling us this occurred when she was squatting or kneeling and going to stand up. But when we actually had her recreate what happens, it's clear that it's when she is standing at the cages and then goes to turn to do something else. She'll have a sense of her legs being wobbly, almost a sense of locking in the knees, some numbness, and some muscle spasm, and then she goes down. She always falls forward. She is able to get herself up off the ground after that. Thus far at least, she has not suffered any serious injuries from these falls, but she is reasonably concerned. She has long-standing diabetes, but doesn't seem to have very significant neuropathy. She complains of some numbness in the third, fourth, and fifth toes on the left side, but that's about it. She still senses temperature and can feel the hot water in a bath or shower. She does not have nocturnal peripheral neuropathy symptoms. She does have charley horses in her leg muscles at night and has to get out of bed to relieve those. Having said that, she does not describe vascular claudication. She can walk pretty much as far she wants without any calf pain etc. She has had problems over the years with some clamminess and sweatiness when she exerts herself. She is rarely short of breath with this. She denies chest pain. Hot weather makes this worse. We then went into specific joints and it's clear that at least one component of this leg unsteadiness is related to her knees. They do bother her, left greater than right. She does experience locking phenomena. When she's had one of these falls and she goes to get up the knees will feel almost as if they are stuck, and that she'll have to stand for a while and flex and extend her knees to loosen it up. She then hears a snap and she's able to continue on. I mentioned the leg cramps which are more common on the right than the left. She does not believe that she is weak in the lower extremities. She has been on simvastatin for about a year, by her recollection, but she doesn't feel the symptoms are re ally coming from the muscles. Past Medical History: Diabetes for 23+ years. Previously in good control on Lantus, but now on 3 oral agents. Insulin has again been discussed. Hypertension. Intermittent atrial fibrillation, by her description. She was cardioverted 3 times, twice on one occasion, and once on another occasion. Now rate-controlled in sinus on metoprolol Hyperlipidemia now on simvastatin for ~1 year. Sleep disorder. Cataracts, S/P removal, npw with excellent vision. Skin cancers. Rosacea. Rheumatic fever at age 4 GERD. Menorrhagia and fibroids. Status post 1986. History of endometrial biopsy Medications Actos. Metformin. Glypizide. Metoprolol. Simvastatin. Updated Social History: She is . She is on disability for her arthritis and diabetes. She smoked, but stopped over 25 years ago. She does not drink. She denies using drugs,other than the marijuana for her arthritis. She had taken care of her father for a long time, but had to put him in a home when it became too diffi cult for her to lift him. He 3 years ago on 's Day. She takes care of her own rabbits in her barn, which is actually her garage. She previously worked at a [employer] selling [employer], et cetera. 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 She walks regularly. She gets around 7 hours of sleep a night and feels she does get goodrest. Updated Family History: She has 4 children, including a now 24-year-old daughter, a 29-year-old daughter, 41-year-old son, and a 43-year-old daughter. They are healthy. I mentioned that her father since the last visit. Her mother . She had vascular disease including stroke, hypertension, and heart disease. Her father also had a stroke. Her mother and grandmother had diabetes. Her grandmother had cancer. Her sister has alcoholism. Review of Systems As on the last visit, remarkably negative except as in HPI, with nocturnal leg cramps, falling episodes, and pain in her hands, shoulders, knees, and left foot. Otherwise, the rheumatology, cardiology,pulmonary, GI, , neurology, dermatology, and hematology review of systems is negative or non-contributory. Physical Exam: She is a pleasant woman, quite talkative, in no acute distress. Blood pressure 139/77, pulse 85, resp. rate 20, height 171.5 cm (5' 7.5), weight 96.616 kg (213 lb). Skin: Facial rosacea of a significant degree. HEENT: PERRL, EOM+, no eye inflammation, no oral ulcers, good moisture, edentulous. Neck: Supple. No lymphadenopathy or thyromegaly. Lungs: Clear. Heart: Regular rhythm and rate with occasional runs of bigeminy. No murmur, gallop, or rub. Abdomen: Overweight. Benign. No masses, tenderness, or organomegaly. Extremities: Trace edema. Good distal pulses, dorsalis pedis less than posterior tibials. Musculoskeletal: She has mild degenerative changes in her hands, particularly affecting the DIPs andthe thumb joints, especially the basilar thumb joint. The real puzzle is her PIP joints where she does have soft tissue swelling and tenderness at the PIPs #2 and 3 bilaterally, as well as #4 on the left and possibly #4 on the right. Her MCPs are spared. Her wrists move well. She intermittently has pain on motion on the right, although that's not reproducible. Her elbows are fine. She's lost significant abduction in both shoulders, left greater than right. She has diminished range of motion of the ne ck in all modalities. It is not painful. There is crepitance with range of motion. Her hips move well. Her right knee is slightly warm and has a small but definite effusion. She has pain on some range of motion there. The left knee is not warm. It has a trace effusion. She does have pain on range of motion there and she's tender along the medial joint line. Her ankles are fine. Midfoot on the right is normal. She has some pain at the distal lateral midfoot on the left to palpation. She has no tenderness at the MTPs on the right. She does have some mild DJD there. On the left side, though, she has fairly exquisite tenderness to direct palpation of the third and fourth MTP and possibly the fifth. She does have lateral squeeze tenderness on that side. Having said that, there is no definite synovitis. She also has some mild DJD on that left side, particularly at the first MTP. She can bend over at the waist and touch her toes. Neuro: 5/5 proximal muscle strength in the upper and lower extremities. DTRs trace and symmetrical at the knees and the ankle jerks. Toes downgoing. Negative Romberg. Assessment & Plan: First of all, in terms of her arthritis, I am not getting a good flavor for alot of activity here. The only really questionable areas are the second and third PIP joints bilaterally, as well as the left third and fourth MTPs. Certainly she is not requesting any further medications. The marijuana seems to control her symptoms when she needs it. We will get x-rays of her hands and feet, but I would not change anything unless they were to show erosions. We do have good baseline films from 5 years ago of the hands that did not show erosions. She also obviously has some definite background osteoarthritis of the hands, the neck, the knees, more symptomatic on the left, but by exam little worse on the right, and the feet. We'll also check some lab work today checking her inflammatory markers, rheumatoid factor, CCP, et cetera. The trouble with falling is a little bit more tricky. We spent a great deal of time today trying to tease this out and yet it's very confusing. This only seems to be happening when she is doing certainactivities, particularly taking care of her rabbits. Initially she indicated it was when she was bending down or squatting, but that's really is not the case. We asked her to demonstrate what she does in the garage when taking care of the rabbits, there is really very little bending over or squatting.Most of it is done at around chest level or higher as the cages are elevated. It sounds like it's more when she turns it starts to walk that she runs into the falling issue. I'm not sure if she's just not paying attention or if, more likely, it's related to her degenerative arthritis of the knees. We'll get x-rays of the knees to see just how bad they are. I asked her to call in a week or two to go over the results of the testing. We agreed not to make any changes now. At the moment at least, I doubt she has active inflammatory arthritis. Several other things are going on which may well be more important. We'll see. I'll see her in followup in 2 months but I asked her to call next week to review the results. She can call the interim if she has any problems. 1. Gait instability (781.2CW) Vitamin B12, TSH, CK, Comprehensive metabolic panel (non-fasting), REFERRAL TO PHYSICAL THERAPY, Vitamin B12, TSH, CK, Comprehensive metabolic panel (non-fasting) 2. Seronegative arthritis (716.80M) XR hands bilateral, XR knee diagnostic 1 or 2 view, XR feet bilateral minimum 3 views, CBC (with Diff), Sedimentation rate, High Sensitivity CRP, Vitamin B12, TSH, CK, Rheumatoid factor, quant, Cyclic Citrullinated Peptide, Comprehensive metabolic panel (non-fasting), CBC (with Diff), Sedimentation rate, High Sensitivity CRP, Vitamin B12, TSH, CK, Rheumatoid factor, quant, Cyclic Citrullinated Peptide, Comprehensive metabolic panel (non-fasting) 3. Osteoarth NOS-l/leg (715.96) XR knee diagnostic 1 or 2 view, REFERRAL TO PHYSICAL THERAPY 4. Osteoarth NOS-ankle (715.97) XR feet bilateral minimum 3 views 5. Osteoarthrosis, unspecified whether generalized or localized, hand (715.94) XR hands bilateral 6. Proximal leg weakness (729.89BG) REFERRAL TO PHYSICAL THERAPY Results for DHAVAL YEE ( ) Ref. Range 10/06/2011 15:38 WBC Latest Range: 4.0-10.0 x10(3)/mcL 7.8 RBC Latest Range: 3.93-5.22 x10(6)/mcL 4.46 Hemoglobin Latest Range: 11.2-15.7 gm/dL 13.1 Hematocrit Latest Range: 34.0-45.0 % 39.0 MCV Latest Range: 79.0-94.0 fL 87.4 MCH Latest Range: 26.6-32.2 pg 29.4 MCHC Latest Range: 32.0-36.5 gm/dL 33.6 RDWSD Latest Range: 35.0-46.0 fL 42.2 RDWCV Latest Range: 10.9-14.4 % 13.2 Platelets Latest Range: 145-370 x10(3)/mcL 324 MPV Latest Range: 9.0-12.0 fL 10.7 Neutr Abs (ANC) Latest Range: 1.50-6.30 x10(3)/mcL 3.85 Neutrophils % Latest Range: 34.0-71.0 % 49.1 Immature Gran % Latest Range: 0.00-0.66 % 0.30 Lymphocytes % Latest Range: 19.0-53.0 % 37.3 Monocytes % Latest Range: 4.0-13.0 % 10.4 Eosinophils % Latest Range: 0.0-7.0 % 2.6 Basophils % Latest Range: 0.0-2.0 % 0.3 Haley Gran Abs Latest Range: 0.00-0.05 x10(3)/mcL 0.02 Lymphocytes Abs Latest Range: 1.0-3.6 x10(3)/mcL 2.9 Monocyte Abs Latest Range: 0.2-1.0 x10(3)/mcL 0.8 Eosinophils Abs Latest Range: 0.0-0.5 x10(3)/mcL 0.2 Basophils Abs Latest Range: 0.0-0.2 x10(3)/mcL 0.0 Sed Rate Latest Range: 0-20 mm/hr 15 Total Bilirubin Latest Range: 0.2-1.3 mg/dL 0.1 (L) Bili, Direct Latest Range: 0.0-0.3 mg/dL <0.1 Alk Phos Latest Range: 40-104 unit/L 43 AST Latest Range: 0-30 unit/L 19 ALT Latest Range: 0-30 unit/L 18 Sodium Latest Range: 135-145 mmol/L 138 Potassium Latest Range: 3.5-5.0 mmol/L 4.7 Chloride Latest Range: 98-107 mmol/L 101 CO2 Latest Range: 22-31 mmol/L 24 Anion Gap Latest Range: 5-15 mmol/L 13 BUN Latest Range: 8-18 mg/dL 19 (H) Creatinine Latest Range: 0.70-1.20 mg/dL 0.85 Estimated GFR Latest Range: >=60 >60 Glucose Lvl Latest Range: 60-199 mg/dL 211 (H) Calcium Latest Range: 8.5-10.5 mg/dL 9.4 Total Protein Latest Range: 6.4-8.3 gm/dL 7.5 Albumin Latest Range: 3.2-5.2 gm/dL 4.3 CK, Total Latest Range: 0-160 unit/L 132 CRP High Sens No range found 0.3 TSH Latest Range: 0.27-4.20 mcIU/mL 0.98 YUNIOR STONE Oct 07, 2011 10:06 AM EDT [phone] BILATERAL FEET, THREE VIEWS EACH SIDE, 10/06/2011 CLINICAL HISTORY: Seronegative rheumatoid arthritis. TECHNIQUE: Three views of the feet were acquired bilaterally with the patient weightbearing and compared to 05/05/2007. FINDINGS: As seen on the previous study, there is proliferative bone at the Achilles insertion bilaterally and there are plantar spurs bilaterally. The contour of the Achilles tendon is normal in appearance bilaterally and no retrocalcaneal bursal fluid is identified. I do not see erosive destruction at the heel. At the ankle no effusion is seen in either foot. There is joint space narrowing, sclerosis and osteophyte formation at the first metatarsophalangeal joints bilaterally. The appearance is most consistent with osteoarthritis. I do not see any definite erosive destruction of bone. There is periarticular calcification at the MTP joint of the left fourth toe. This is a new finding. It suggests hydroxyapatite deposition. The clinical significance is unclear to me. KRISTA JOSE ARMANDO You Oct 06, 2011 5:18 PM EDT [phone] Reason for exam and clinical history: H/O seronegative RA. ?erosions.; Comparison April 2007. Findings The bone mineralization is normal. The soft tissues surrounding the right 3rd PIP joint is swollen. Joints- 1. Interphalangeal joints-diffuse DIP joint osteoarthropathy characterized by small osteophyte formation and eccentric joint space narrowing. The cystic changes in the right 2nd and 3rd middle phalangeal heads are more prominent. No ankylosis or periostitis. The osteophytes arising from the right 3rd DIP joint hve also increased. And there is newly developed narrowed 3rd PIP joint space narrowing. The osteoarthropathy of scattered remaining PIP joints are similar. 2. MCP joints-no erosions. 3. Radiocarpal joint-there are no erosions. Specifically, the ulnar styloid normal. Impression 1. Osteoarthropathy of multiple IP joints. 2. These cystic change and osteophyte formation, most prominent in the right 2nd and 5th DIP and right 5th PIP joints have progressed since the last examination. 3. Findings likely represent progression of osteoarthropathy rather than inflammatory osteoarthropathy. KNEE BILATERAL 1 OR 2 VIEWS/BILAT Reason for exam and clinical history: Pain, instability. OA?; Findings Slightly narrowed medial joint spaces of both knees with small osteophyte formation. No knee effusion. Impression Bilateral osteoarthropathy with medial joint space narrowing. documented in this encounter Plan of Treatment Scheduled Referrals Name Type Priority Associated Diagnoses Order S chedule REFERRAL TO Outpatient Referral Routine Gait instabi lity Ordered: PHYSICAL THERAPY Osteoarth NOS-l /leg 10/06/2011 Proximal leg weakness documented as of this encounter Procedures Procedure Name Priority Date/Time Associated Diagnosis Comme nts DIFFERENTIAL, Routine 10/06/2011 3:38 Results for this AUTOMATED PM EDT procedure are i n the results section. SEDIMENTATION RATE Routine 10/06/2011 3:38 Seronegative Result s for this PM EDT arthritis procedure are i n the results section. CBC (WITH DIFF) Routine 10/06/2011 3:38 Seronegative Results f or this PM EDT arthritis procedure are i n the results section. CRP, CARDIAC RISK (HS Routine 10/06/2011 3:38 Seronegative Res ults for this CRP) PM EDT arthritis procedure are i n the results section. TSH Routine 10/06/2011 3:38 Gait instability Results for this PM EDT Seronegative procedure are i n arthritis the results section. CK Routine 10/06/2011 3:38 Gait instability Results for this PM EDT Seronegative procedure are i n arthritis the results section. COMPREHENSIVE Routine 10/06/2011 3:38 Gait instability Results for this METABOLIC PANEL PM EDT Seronegative procedure ar e in (NON-FASTING) arthritis the results section. documented in this encounter Results XR feet bilateral minimum 3 views (10/06/2011 4:06 PM EDT) Anatomical Region Laterality Modality Foot Bilateral Radiographic Imaging Specimen (Source) Anatomical Collection Method Collection Time Re ceived Time Location / / Volume Laterality 10/06/2011 4:06 PM EDT Narrative 10/07/2011 10:06 AM EDT BILATERAL FEET, THREE VIEWS EACH SIDE, 10/06/2011 CLINICAL HISTORY: ??Seronegative rheumat oid arthritis. TECHNIQUE: ??Three views of the feet wer e acquired bilaterally with the patient weightbearing and compared to 05/05/2007 . FINDINGS: ??As seen on the previous stud y, there is proliferative bone at the Achilles insertion bilaterally and there are plantar spurs bilaterally. ??The contour of the Achilles tendon is normal in appearance bilaterally and no retrocalcaneal bursal fluid is identifie d. ??I do not see erosive destruction at the heel. ??At the ankle no effusion is seen in either foot. ??There is joint space narrowing, sclerosis and osteophyt e formation at the first metatarsophalangeal joints bilaterally. ??The appearance is most consistent with osteoarthritis. ??I do not see any defin ite erosive destruction of bone. ??There is periarticular calcification at the MT P joint of the left fourth toe. ??This is a new finding. ??It suggests hydroxya patite deposition. ??The clinical significance is unclear to me. Procedure Note Yunior Stone MD - 10/07/2011Forma tting of this note might be different from the original. BILATERAL FEET, THREE VIEWS EACH SIDE, 0 10/06/2011 CLINICAL HISTORY: Seronegative rheumatoi d arthritis. TECHNIQUE: Three views of the feet were acquired bilaterally with the patient weightbearing and compared to 05/05/2007 . FINDINGS: As seen on the previous study, there is proliferative bone at the Achilles insertion bilaterally and there are plantar spurs bilaterally. The contour of the Achilles tendon is normal in appearance bilaterally and no retrocalcaneal bursal fluid is identifie d. I do not see erosive destruction at the heel. At the ankle no effusion is se en in either foot. There is joint space narrowing, sclerosis and osteophyt e formation at the first metatarsophalangeal joints bilaterally. The appearance is most consistent with osteoarthritis. I do not see any definit e erosive destruction of bone. There is periarticular calcification at the MT P joint of the left fourth toe. This is a new finding. It suggests hydroxyapa tite deposition. The clinical significance is unclear to me. Orlando Encinas MD IMG DX ORDERABLES XR hands bilateral (10/06/2011 4:06 PM EDT) [...] osteoarthropathy rather than inflammatory osteoarthropathy. Procedure Note Jose Armando Ding MD - 10/06/2011Formatt ing of this [...] osteoarthropathy. Orlando Encinas MD IMG DX ORDERABLES DIFFERENTIAL, AUTOMATED (10/06/2011 3:38 PM EDT) P athologist Signature Neutrophils % 49.1 34.0 - CERNER 71.0 % MILLENNIUM Neutr Abs (ANC) 3.85 1.50 - CERNER 6.30 MILLENNIUM x10(3)/mcL Lymphocytes % 37.3 19.0 - CERNER 53.0 % MILLENNIUM Lymphocytes Abs 2.9 1.0 - 3.6 CERNER x10(3)/mcL MILLENNIUM Monocytes % 10.4 4.0 - 13.0 CERNER % MILLENNIUM Monocyte Abs 0.8 0.2 - 1.0 CERNER x10(3)/mcL MILLENNIUM Eosinophils % 2.6 0.0 - 7.0 CERNER % MILLENNIUM Eosinophils Abs 0.2 0.0 - 0.5 CERNER x10(3)/mcL MILLENNIUM Basophils % 0.3 0.0 - 2.0 CERNER % MILLENNIUM Basophils Abs 0.0 0.0 - 0.2 CERNER x10(3)/mcL MILLENNIUM Immature Gran % 0.30 0.00 - CERNER 0.66 % MILLENNIUM Comment: Immature granulocytes(IG's)percentage an d absolute count will include metamyelocytes, myelocytes, and promyelo cytes. Blood smears from CBCs yielding IG's will be scanned manually for conctomer danchristiano. If this scan disagrees with the automated IG or if promyelocytes are not ed, a manual differential will be performed. Haley Gran Abs 0.02 0.00 - 0.05 x10(3)/mcL CER NER MILLENNIUM Specimen Anatomical Collection Method Collection Time Receive d Time (Source) Location / / Volume Laterality Blood specimen 10/06/2011 3:38 PM 012 3:47 (specimen) EDT PM EDT Orlando Encinas MD HEMATOLOGY ORDERABLES Performing Organization Address City/State/Z[place] [address] CERNER MILLENNIUM (ABNORMAL) Comprehensive metabolic panel (non-fasting) (10/06/2011 3:38 PM EDT) P athologist Signature Glucose Lvl 211 (H) 60 - 199 CERNER mg/dL MILLENNIUM Comment: Diabetes: >=200 mg/dL plus symp toms BUN 19 (H) 8 - 18 mg/dL CERNER MILLENNIUM Creatinine 0.85 0.70 - 1.20 mg/dL CERNER MILL ENNIUM Sodium 138 135 - 145 mmol/L CERNER LUIS ANTONIO NIUM Potassium 4.7 3.5 - 5.0 mmol/L CERNER LUIS ANTONIO NIUM Comment: Please note: ??Patients with WBC >100,00 0 may have falsely elevated Potassium levels. ??For accurate Potassium quantif ication in these patients send serum separator tube (gold top) for subsequent determinations. ??Contact the Clinical Chemistry Laboratory if there are any qu estions. Chloride 101 98 - 107 mmol/L CERNER MILLENN IUM CO2 24 22 - 31 mmol/L CERNER MILLENNI UM Anion Gap 13 5 - 15 mmol/L CERNER MILLENNIU M Calcium 9.4 8.5 - 10.5 mg/dL CERNER LUIS ANTONIO NIUM Total Protein 7.5 6.4 - 8.3 gm/dL CERNER MIL LENNIUM Albumin 4.3 3.2 - 5.2 gm/dL CERNER MILLENN IUM AST 19 0 - 30 unit/L CERNER MILLENNIU M ALT 18 0 - 30 unit/L CERNER MILLENNIU M Alk Phos 43 40 - 104 unit/L CERNER MILLENN IUM Total Bilirubin 0.1 (L) 0.2 - 1.3 mg/dL CERNER M ILLENNIUM Bili, Direct <0.1 0.0 - 0.3 mg/dL CERNER MILL ENNIUM Estimated GFR >60 >=60 CERNER MILLENNIU M Comment: The National Kidney Disease Education Pr ogram (NKDEP) has recommended all laboratories report estimated GFR (eGFR) along with plasma creatinine measurements to assist you with recognit ion of early kidney disease. Caveats: ??Plasma creatinine should be a t steady-state (unchanged within the past week). For patient s multiply eGFR by 1.2. The MDRD equation was developed using patients be tween the ages of 18 and 70 years. ?? The MDRD equation has not been validated for patients < 18 years of age and should not be used to assess renal function in the pediatric population. ??The MDRD eGFR equation will also overestimate the true GFR of patients above the age of 70. ??This overestimation is variable bu t increases with age. At present, NKDEP does NOT recommend usi ng the MDRD equation for drug dosing purposes and pharmacists should continue to use their current dosing methods. In addition, numerical eGFR values great er than 60 ml/min/1.73 square meters should be treated as > 60, and not an ex act number due to greater inaccuracies at these higher values. Per NKDEP, they classify normal renal function as any GFR >60ml/min/1.73 square meters; chronic kidney disease wh en GFR <60, and renal failure when GFR <15. ??This calculation may not be valid for patients with atypical muscle mass (very lean or obese), acute renal failur e, and in patients with diabetic kidney disease. References: http://nkdep.nih.gov/resources/NKDEP_Sug gestn4Labs_0606_508.pdf http://www.kidney.org/professionals/kls/ pdf/faq_gfr.pdf Ольга Javed, Philip NA, Radha AK, Daniel TS, Heather AD, Rissa SHIRA. Relative performance of the MDRD and CKD-EPI equa tions for estimating glomerular filtration rate among patients with vari ed clinical presentations. Clin J Am Soc Nephrol;6:1963-72. Specimen Anatomical Collection Method Collection Time Receive d Time (Source) Location / / Volume Laterality Blood specimen 10/06/2011 3:38 PM 012 3:47 (specimen) EDT PM EDT Resulting Agency Comment Spec In Lab Orlando Encinas MD CHEMISTRY ORDERABLES Performing Organization Address City/[facility]/ZIP [place] [address] CERNER MILLENNIUM CK (10/06/2011 3:38 PM EDT) athologist Signature CK, Total 132 0 - 160 CERNER unit/L MILLENNIUM Specimen Anatomical Collection Method Collection Time Receive d Time (Source) Location / / Volume Laterality Blood specimen 10/06/2011 3:38 PM 012 3:47 (specimen) EDT PM EDT Resulting Agency Comment Spec In Lab Orlando Encinas MD CHEMISTRY ORDERABLES Performing Organization Address City/[facility]/ZIP Code Phon e Number [address] CERNER MILLENNIUM TSH (10/06/2011 3:38 PM EDT) athologist Signature TSH 0.98 0.27 - 4.20 CERNER mcIU/mL MILLENNIUM Specimen Anatomical Collection Method Collection Time Receive d Time (Source) Location / / Volume Laterality Blood specimen 10/06/2011 3:38 PM 012 3:47 (specimen) EDT PM EDT Resulting Agency Comment Spec In Lab Orlando Encinas MD CHEMISTRY ORDERABLES Performing Organization Address City/[facility]/ZIP [facility] Phon e Number [address] CERNER MILLENNIUM High Sensitivity CRP (10/06/2011 3:38 PM EDT) athologist Signature CRP High Sens 0.3 mg/L CERNER MILLENNIUM Comment: Interpretations: 1) For cardiac risk assessment, two valu es (fasting or nonfasting sample acceptable) taken at least 2 weeks apart , should be averaged to provide a more reliable estimate of marker level. ??Thi s laboratory uses the recommendations from the AHA/CDC Scientific Statement fo r interpretations of future risks of cardiovascular events: ? <1.0 mg/L: low risk 1.0 - 3.0 mg/L: moderate risk >3.0 mg/L: high risk groups for future c ardiovascular events 2) The general reference range of appare ntly healthy individuals using this test is <5.0 mg/L (derived from the test package insert) A few words of caution: For cardiac asse ssment, when a value >10 mg/L is encountered, there should be a search fo r an acute inflammatory condition or infection (in patients with acute inflam mation, the concentration can increase to >500 mg/L). ??The >10 mg/L should be discarded if such a situation exists, since the risk for coronary heart diseas e cannot be provided, and a repeat specimen, taken at least two weeks after resolution of the acute inflammatory condition, may allow for appraisal of co ronary risk information. Please note that significantly decreased CRP values may be obtained from samples taken from patients who have bee n treated with carboxypenicillins. References: 1. Nilda HOWE et. al. ??AHA/CDC Scientif ic Statement: Markers of Inflammation and Cardiovascular Disease. ??Circulatio n 2003; 107:499-511 2. Ridker PM. ??Clinical applications of C-reactive protein for cardiovascular disease detection and prevention. ??Circ ulation 2003; 107:363-369 Specimen Anatomical Collection Method Collection Time Receive d Time (Source) Location / / Volume Laterality Blood specimen 10/06/2011 3:38 PM 012 3:47 (specimen) EDT PM EDT Resulting Agency Comment Spec In Lab Orlando Encinas MD CHEMISTRY ORDERABLES Performing Organization Address City/State/[place] [address] CERNER MILLENNIUM Sedimentation rate (10/06/2011 3:38 PM EDT) P athologist Signature Sed Rate 15 0 - 20 CERNER mm/hr MILLENNIUM Specimen Anatomical Collection Method Collection Time Receive d Time (Source) Location / / Volume Laterality Blood specimen 10/06/2011 3:38 PM 012 3:47 (specimen) EDT PM EDT Resulting Agency Comment Spec In Lab Orlando Encinas MD HEMATOLOGY ORDERABLES Performing Organization Address City/[facility]/ZIP Code Phon e Number [address] CERNER MILLENNIUM CBC (with Diff) (10/06/2011 3:38 PM EDT) P athologist Signature WBC 7.8 4.0 - 10.0 CERNER x10(3)/mcL MILLENNIUM RBC 4.46 3.93 - 5.22 CERNER x10(6)/mcL MILLENNIUM Hemoglobin 13.1 11.2 - 15.7 CERNER gm/dL MILLENNIUM Hematocrit 39.0 34.0 - 45.0 CERNER % MILLENNIUM MCV 87.4 79.0 - 94.0 CERNER fL MILLENNIUM MCH 29.4 26.6 - 32.2 CERNER pg MILLENNIUM MCHC 33.6 32.0 - 36.5 CERNER gm/dL MILLENNIUM Platelets 324 145 - 370 CERNER x10(3)/mcL MILLENNIUM RDWSD 42.2 35.0 - 46.0 CERNER fL MILLENNIUM RDWCV 13.2 10.9 - 14.4 CERNER % MILLENNIUM MPV 10.7 9.0 - 12.0 CERNER fL MILLENNIUM Specimen Anatomical Collection Method Collection Time Receive d Time (Source) Location / / Volume Laterality Blood specimen 10/06/2011 3:38 PM 012 3:47 (specimen) EDT PM EDT Resulting Agency Comment Spec In Lab Orlando Encinas MD HEMATOLOGY ORDERABLES Performing Organization Address City/[facility]/ZIP [place] [address] CERNER MILLENNIUM documented in this encounter Visit Diagnoses Diagnosis Gait instability Abnormality of gait Seronegative arthritis Other specified arthropathy, site unspec ified Osteoarthrosis, unspecified whether gene ralized or localized, lower leg Osteoarthrosis, unspecified whether gene ralized or localized, ankle and foot Osteoarthrosis, unspecified whether gene ralized or localized, hand Proximal leg weakness Other musculoskeletal symptoms referable to limbs Seronegative arthritis Other specified arthropathy, site unspec ified Osteoarthrosis, unspecified whether gene ralized or localized, hand Seronegative arthritis Other specified arthropathy, site unspec ified Osteoarthrosis, unspecified whether gene ralized or localized, ankle and foot documented in this encounter Care Teams Video Game Producer Relationship Specialty Start Date End Date Quin Gordon, DIRECTOR INSURANCE PCP - General 06/24/10 12/19/17 documented as of this encounter
--- OUTSIDE RECORDS SUMMARY | 2022-01-05 21:02 | XMS_ITS | Encounter Summary ---
:1950 Author Organization [facility] [place] [address] Care Team Providers Name Role Phone Hoa Jacques APRN Primary Care Provider [phone] Reason for Visit Reason Comments Skin Check Encounter Details Date Type Department Care Team Description 01/01/2011 Office Visit Dermatology David Ayoub, Personal history of malignan t melanoma (Primary Dx); [address] MD Mej[place]; [address] Basal cell carcinoma of back [place], [place] DERMATOLOGY [address] [place] [address] [phone] (Wo rk) Social History Tobacco Use Types Packs/Day Years Used Date Never Assessed Sex Assigned at Date Recorded Not on file documented as of this encounter Progress Notes aDvid Ayoub MD - 01/01/2011 11:13 AM EDT Problems: 1. Six-month skin checkup. 2. History of malignant melanoma 0.48mm Breslow depth, central upper back, 05/2010. 3. 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 Hope follows up and is here for a six-month check. She has noted some new bothersome itchy lesions on the upper central back. Physical examination reveals a pearly flesh colored papule of the left upper back, adjacent to the nape of the neck, consistent with a possible BCCa. Adjacent to it are three skin tags. Below that on the upper central back is a well healed surgical excision site from the melanoma in May. There is no recurrent pigmentation there. Examination of the face reveals moderate inflammatory papular and pustular Rosacea. Examination of the head, neck, chest, back, hands, arms, forearms, thighs and calves is otherwise unremarkable. Assessment & Plan: History of malignant melanoma, 0.48mm Breslow depth, central upper back, 05/2010. a. No evidence of recurrence. b. Patient reassured. c. RTC in six months for repeat check. Rosacea facial, moderate inflammatory papular. a. Recommended that we treat this today with Metronidazole 0.75% Gel applying on a twice daily basis, 30gm dispensed with p.r.n. refills. Probable BCCa, left upper back. a. After obtaining patient consent, the site was anesthetized and shave C & D x3 performed. b. Triple antibiotic ointment and Band-Aid placed. c. Wound care instructions and supplies given. d. RTC in six months. NOTE: Bothersome tags removed today with shave biopsy and electrodesiccation, not submitted for pathologic analysis. Pathology Addendum per [facility] 01/09/11 : Basal Cell Carcinoma, nape of neck documented in this encounter Plan of Treatment Not on filedocumented as of this encounter Visit Diagnoses Diagnosis Personal history of malignant melanoma - Primary Personal history of malignant melanoma o f skin Rosacea Basal cell carcinoma of back Basal cell carcinoma of skin of trunk, e xcept scrotum documented in this encounter Care Teams Operations Officer Relationship Specialty Start Date End Date Hoa Jacques, SHO PCP - General 06/24/10 12/19/17 documented as of this encounter
--- OUTSIDE RECORDS SUMMARY | 2022-01-05 21:02 | XMS_ITS | Encounter Summary ---
:1950 Author Organization [place] [address] Care Team Providers Name Role Phone Hoa Jacques APRN Primary Care Provider [phone] Encounter Details Date Type Department Care Team Description 01/02/2011 Abstract Radiation Oncology a t [facility] Lisbet Cortez, RN [address] [place], [place] [phone] Social History Tobacco Use Types Packs/Day Years [...] on filedocumented in this encounter Care Teams Research Engineer Marine Equipment Relationship Specialty Start Date End Date Hoa Jacques APRN PCP - General 06/24/10 12/19/17 documented as of this encounter
--- OUTSIDE RECORDS SUMMARY | 2022-01-05 21:02 | XMS_ITS | Encounter Summary ---
:1950 [place] [address] Care Team Providers Name Role Phone Hoa Jacques APRN Primary Care Provider [phone] Encounter Details Date Type Department Care Team Description 06/20/2010 Orders Only Lab Tracy Huerta MD [address] [place] [address] [place] [address] [phone] (Wo rk) Social History Tobacco Use Types Packs/Day Years Used Date Never Assessed Sex Assigned at Date Recorded Not on file documented as of this encounter Plan of Treatment Not on filedocumented as of this encounter Procedures Procedure Name Priority Date/Time Associated Diagnosis Comme [facility] SURGICAL PATHOLOGY Routine 06/20/2010 6:37 PM Res ults for this REPORT EST procedure are i n the results section. documented in this encounter Results PATHOLOGY SURGICAL PATHOLOGY FINAL REPORT (06/20/2010 6:37 PM EST) Component Value Ref Test Analysis Performed At [facility] Range Method Time Signature Surgical CERNER Pathology ? [facility] Report ? Provider: ?? PERI MONSALVE ?? Pt. Name: ?? DHAVAL PASCUAL ND ? Acc #: ?[id number] ? Pt. ? Col Date: ?? 06/20/2010 ?/Sex: ?1 07/04/1949,(60 ? years),Female ? Rec Date: ?? 06/24/2010 ?LOC: ?[facility] ? SURGICAL PATHOLOGY ? ---Pathologic Diagnosis--- ? Specimen: ? Central upper back, ex cision ? Histologic Type: ?Malignant melanoma, superficial spreading type ? Ulceration: ? Absent ? Depth of Invasion: ?0.48 mm ? Memo's Level: ?III ? Regression: ? Present ? Vascular Invasion: ?Not identified ? Perineural Invasion: ?Not identified ? Microscopic Satellites: Not identified ? Dermal mitoses per mm2: Less than 1 ? Tumor infiltrating ? lymphocytes: ?Non-brisk ? Solar Elastosis: ?Absent ? Associated Nevus: ? Not identified ? Peripheral Margins: ? Melanoma in situ approaches to 2.8 mm from the ? nearest periph eral margin. ? Invasive melanoma approaches to 6.5 mm from the ? nearest periph eral margin. ? Deep Margin: ?Not involved ? Pathologic TNM Codes: ?? pT1a ? Additional Findings: ?Scar, consistent with prior biopsy site ? CR-0 ? 06/26/10 ? ALEX ? 06/26/10 Verified by: ? Memo Dukes MD ? Dermatopatholo gist ? (Electronic Si gnature) ? The attending pathologist whose signature appears o n this report has ? reviewed all diagnostic slides and has edited the sharon ss and/or ? microscopic portion of the report in rendering the fi nal pathologic ? diagnosis. ? ---Microscopic Description--- ? Slides reviewed, microscopic description not recorded . ? ---Gross Description--- ? Labeled/Fixative: ? Central upper back, formalin. ? Qty/Size/Weight: ?Single, 4.0 x 2.3 x 0.8 cm. ? Tissue Description: ?? Ellipse of unoriented, campos-white, wrinkled skin ? demonstrating centrally circumscribed, variegated, ? [facility] ? Provider: ?? PERI MONSALVE ?? Pt. Name: ?? ANKUR DO, DHAVAL Calix ? Acc #: ?[id number] ? Pt. ? Col Date: ?? 06/20/2010 ?/Sex: ?1 07/04/1949,(60 ? years),Female ? Rec Date: ?? 06/24/2010 ?LOC: ?[facility] ? brown-black macule, covering a 2.0 x 1.6-cm, central ? SURGICAL PATHOLOGY ? area of the skin ell ipse. ? Sections/Processing: ??The specimen is inked and serially sectioned. ??The ? ends are submitted in (1); the remainder of the ? specimen submitted in (2-7). ??(T7) ??aje/SHB ? ---Clinical Information--- ? Specimen Submitted: ? A - Central upper back, excision ? Clinical History: ? Malignant melanoma 0. 41 mm Breslow per FA [id number] punch BX for excision ? Clinical Diagnosis: ? Malignant melanoma ? Report to: ? Peri Monsalve MD, III ? [facility] ? Dermatology ? . [place], [place] ??[address] Specimen (Source) Anatomical Collection Method Collection Time Re ceived Time Location / / Volume Laterality 06/20/2010 6:37 PM EST Peri Monsalve MD PATHOLOGY/CYTOLOGY ORDERABLE S Performing Organization Address City/State/[place] [address] [facility] documented in this encounter Visit Diagnoses Not on filedocumented in this encounter Care Teams Administrative Nursing Supervisor Relationship Specialty Start Date End Date Hoa Jacques, MANAGER PHOTO PCP - General 06/24/10 12/19/17 documented as of this encounter
--- OUTSIDE RECORDS SUMMARY | 2022-01-05 21:02 | XMS_ITS | Encounter Summary ---
:1950 Author Organization [facility] Address [address] [facility] [place] [address] Care Team Providers Name Role Phone Hoa Jacques APRN Primary Care Provider [phone] Encounter Details Date Type Department Care Team Description 10/06/2011 Hospital Encounter XRay at [facility] Seronegative arthritis; [address] [place] [address] Social History Tobacco Use Types Packs/Day [...] Priority Date/Time Associated Diagnosis Comme nts XR FOOT MIN 3 VIEWS Routine 10/06/2011 4:06 PM Seronegative Re sults for this BILAT EDT arthritis procedure are in Osteoarth NOS-ankle the resu lts section. documented in this encounter Results XR [...] significance is unclear to me. Procedure Note Silvano Stone MD - 10/07/2011Forma tting of this [...] me. Orlando Encinas MD IMG DX ORDERABLES documented in this encounter Visit Diagnoses Diagnosis Seronegative arthritis Other specified arthropathy, site unspec ified Osteoarthrosis, unspecified whether gene ralized or localized, ankle and foot documented in this encounter Care Teams Industrial Roof Plumber Relationship Specialty Start Date End Date Hoa Jacques, SCISSORS GRINDER PCP - General 06/24/10 12/19/17 documented as of this encounter
--- OUTSIDE RECORDS SUMMARY | 2022-01-05 21:02 | XMS_ITS | Encounter Summary ---
:1950 Author Organization [facility] [place] [address] Care Team Providers Name Role Phone Hoa Jacques APRN Primary Care Provider [phone] Reason for Visit Reason Comments Skin Check Encounter Details Date Type Department Care Team Description 04/29/2013 Office Visit Dermatology at [facility] Ayoub, History of malignant melanoma (Primary Dx); Jolly REYNOSO History of basal cell carcinoma; [address] [place] Nik [address] DERMATOLOGY [place], [place] [phone] Social History Tobacco Use Types Packs/Day Years Used Date Former Smoker Cigarettes Quit: 06/22/18 80 Comments: per phone call 01/02/2011 Alcohol Use Standard Drinks/Week Comments Not Asked 0 (1 standard drink = 0.6 oz pure alcoho l) Sex Assigned at Date Recorded Not on file documented as of this encounter Progress Notes David Ayoub MD - 04/29/2013 12:00 PM EST Problems: 1. Repeat skin checkup. 2. History of malignant melanoma, 0.48-mm Breslow depth, central upper back, May 2010. 3. History of BCCA, nape of neck, December 2010. 4. 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 Hope follows up for a roughly six-month check. She has been doing well. The nape of neck excision sites have healed well. Her rosacea is mostly controlled with metronidazole. Physical examination reveals a pleasant, now 62-year-old woman who has no evidence of recurrence at either the BCCA treatment site on the nape of her neck, nor the melanoma site on the central upper back. Careful examination of the head and the neck, the chest, the back, hands, arms, forearms, thighs, and calves is otherwise benign. Her rosacea is mildly active, but she is satisfied with the level of control with just the topical MetroGel. Assessment and Plan: 1. History of malignant melanoma/history of BCCA. a. No evidence of recurrence at either site. b. Patient reassured about benign examination. c. It has been now over three years since her melanoma was excised. I recommended now we go to just once-yearly visits for repeat skin checks. 2. Rosacea. a. Patient was given refills for the metronidazole 0.75% gel to apply b.i.d. to her face; 45 grams dispensed with five refills. b. Kxazsr-oc-mfatat reminder in one year. COPY: Lana Ramos M.D. documented in this encounter Plan of Treatment Not on filedocumented as of this encounter Visit Diagnoses Diagnosis History of malignant melanoma - Primary Personal history of malignant melanoma o f skin History of basal cell carcinoma Personal history of other malignant neop lasm of skin Rosacea documented in this encounter Care Teams Postal Supervisor Relationship Specialty Start Date End Date Hoa Jacques APRN PCP - General 06/24/10 12/19/17 documented as of this encounter
--- OUTSIDE RECORDS SUMMARY | 2022-01-05 21:02 | XMS_ITS | Encounter Summary ---
:1950 Author Organization [facility] [place] [address] Care Team Providers Name Role Phone Hoa Jacques APRN Primary Care Provider [phone] Encounter Details Date Type Department Care Team Description 12/31/2010 Abstract Dermatology Lisbet Cortez RN Malignant melanoma [address] [place], [place] [address] Social History Tobacco Use Types Packs/Day Years Used Date Never Assessed Sex Assigned at Date Recorded Not on file documented as of this encounter Plan of Treatment Not on filedocumented as of this encounter Visit Diagnoses Diagnosis Malignant melanoma Melanoma of skin, site unspecified documented in this encounter Care Teams Wire Machine Cutter Relationship Specialty Start Date End Date Hoa Jacques APRN PCP - General 06/24/10 12/19/17 documented as of this encounter
--- OUTSIDE RECORDS SUMMARY | 2022-01-05 21:02 | XMS_ITS | Encounter Summary ---
:1950 Author Organization [facility] Address [address] [place] [address] Care Team Providers Name Role Phone Hoa Jacques APRN Primary Care Provider [phone] Reason for Visit Reason Onset Date Comments Results 10/13/2011 labs and xrays Encounter Details Date Type Department Care Team Description 10/13/2011 Telephone Rheumatology at [facility]ke, Brittany (labs and [facility] Lidia Early LPN xrays) [place] [address] Social History Tobacco Use Types Packs/Day Years Used Date Former Smoker Cigarettes Quit: 06/22/18 80 Comments: per phone call 01/02/2011 Alcohol Use Standard Drinks/Week Comments Not Asked 0 (1 standard drink = 0.6 oz pure alcoho l) Sex Assigned at Date Recorded Not on file documented as of this encounter Miscellaneous Notes Telephone Encounter - Celeste Alanis LPN - 10/13/2011 9:31 AM EDT Called and spoke with patient relayed info below per Dr Espinoza. Patient will call if she has any further questions or concerns. Telephone Encounter - Celeste Alanis LPN - 10/13/2011 9:30 AM EDT Message copied by CELESTE ALANIS on ThuOct 13, 2011 9:30 AM ------ Message from: JERICHO ESPINOZA Created: ThuOct 13, 2011 9:01 AM Please call. Labs all normal. X-rays show wear and tear (OA) of her hands, feet, and knees. I'll see her back in 2 months. Call if problems. Thanks! documented in this encounter Plan of Treatment Not on filedocumented as of this encounter Visit Diagnoses Not on filedocumented in this encounter Care Teams Software Verification Engineer Relationship Specialty Start Date End Date Hoa Jacques APRN PCP - General 06/24/10 12/19/17 documented as of this encounter
--- OUTSIDE RECORDS SUMMARY | 2022-01-05 21:02 | XMS_ITS | Encounter Summary ---
:1950 Author Organization [facility] Address [facility] [place] [address] Care Team Providers Name Role Phone Hoa Jacques APRN Primary Care Provider [phone] Encounter Details Date Type Department Care Team Description 10/06/2011 Hospital Encounter XRay at [facility] [place] Seronegative arthritis; [address] [place] [address] Social History Tobacco Use Types Packs/Day [...] Priority Date/Time Associated Diagnosis Comme nts XR KNEE AP AND LAT Routine 10/06/2011 4:06 PM Other specified Results for this BILAT EDT arthropathy, site procedure are in unspecified the results Osteoarth NOS-l/leg section. documented in this encounter Results XR KNEE BILATERAL1 OR 2 VIEW (10/06/2011 4:06 PM EDT) Anatomical Region Laterality Modality Knee Bilateral Radiographic Imaging Specimen (Source) Anatomical Collection Method Collection Time Re ceived Time Location / / Volume Laterality 10/06/2011 4:06 PM EDT Narrative 10/06/2011 5:19 PM EDT Examination KNEE BILATERAL 1 OR 2 VIEWS/BILAT Clinical History Reason for exam and clinical history: Pa in, instability. OA?; Comparison NONE Findings Slightly narrowed medial joint spaces of both knees with small osteophyte formation. ??No knee effusion. Impression Bilateral osteoarthropathy with medial j oint space narrowing. Procedure Note Mary Kay Ding MD - 10/06/2011Formatt ing of this note might be different from the original. Examination KNEE BILATERAL 1 OR 2 VIEWS/BILAT Clinical History Reason for exam and clinical history: Pa in, instability. OA?; Comparison NONE Findings Slightly narrowed medial joint spaces of both knees with small osteophyte formation. No knee effusion. Impression Bilateral osteoarthropathy with medial j oint space narrowing. Orlando Encinas MD IMG DX ORDERABLES documented in this encounter Visit Diagnoses Diagnosis Seronegative arthritis Other specified arthropathy, site unspec ified Osteoarthrosis, unspecified whether gene ralized or localized, lower leg documented in this encounter Care Teams [place] Measurer Relationship Specialty Start Date End Date Hoa Jacques APRN PCP - General 06/24/10 12/19/17 documented as of this encounter
--- OUTSIDE RECORDS SUMMARY | 2022-01-05 21:02 | XMS_ITS | Encounter Summary ---
:1950 Author Organization [facility] Address [facility] [place] [address] Care Team Providers Name Role Phone Quin Gordon APRN Primary Care Provider [phone] Encounter Details Date Type Department Care Team Description 03/29/2014 - Hospital Encounter [facility] 4 Flex Unit [place], Atrial fibrillation; 03/30/2014 [facility] Cathie Orta MD SVT (supraventricular tachycardia); [facility] Diabetes mellitus [facility] [id number] CARDIOLOGY DEPT [phone] [place] [address] Social History Tobacco Use Types Packs/Day Years [...] Sign Reading Time Taken Comments Blood Pressure 127/73 03/30/2014 11:43 AM EDT Pulse 76 03/30/2014 11:43 AM EDT Temperature 36.6 ??C (97.9 ??F) 03/30/2014 11:43 AM EDT Respiratory Rate 18 03/30/2014 11:43 AM EDT Oxygen Saturation 98% 03/30/2014 11:43 AM EDT Inhaled Oxygen Concentration - - Weight 91.4 kg (201 lb 8 oz) 03/30/2014 5:00 AM EDT Height 170.2 cm (5' 7) 03/29/2014 2:26 AM EDT Body Mass Index 31.56 03/29/2014 2:26 AM EDT documented in this encounter Discharge Instructions Discharge InstructionsLeticia Paz APRN - 03/30/2014 2:55 PM EDT Insulin Discharge Instructions You have a follow-up appointment in Endocrine Clinic Section (5C) with Katy Dickey APRN May 11 at 2:30 pmPlease take your meter, glucose and insulin log with you to the appointment. Resume your metformin 1000 mg by mouth. Take with breakfast and supper Do not take if you are not eating Instructions for Lantus Insulin (LONG ACTING) 1. Inject LANTUS 35 units insulin every morning. Check blood glucose (BG) before breakfast 3. If the blood glucose before breakfast is over 150 for two days in a row, add TWO units of insulinto the next LANTUS dose. This increased dose becomes your new dose, continue to increase as needed. 4. If the blood glucose before breakfast is under 90 for two days in a row, subtract TWO units of insulin from the next LANTUS dose. This lower dose becomes your new dose, continue to decrease as needed. Instructions for Mealtime Novolog insulin (RAPID ACTING) 1. Check blood glucose before each meal. 2. Inject 8 units of novolog by pen for breakfast, 3. 8 units for lunch and 4. 8 units for dinner. ADD the following dose if your blood glucose is over 140 at meal time. Blood Sugar NOVOLOG DOSE 140-159 ADD 2 unit 160-179 ADD 3 units 180-199 ADD 4 units 200-219 ADD 5 units 220-239 ADD 6 units 240-259 ADD 7 units 260-279 ADD 8 units 280-299 ADD 9 units >300 ADD 10 units and call Doctor 6. If you should forget to take your Novolog. If it is less than an hour since you ate your meal, take the calculated dose If more than an hour has passed since you ate, recheck blood glucose and dose accordingly. Try to get some extra exercise and drink a lot of water to help with the high blood sugar. Treatment of Low Blood Sugar (Hypoglycemia) If your BG is lower than 80, you are likely to feel shaky, sweaty and lightheaded. This is a signal that your body needs more sugar. Quickly eat or drink a small serving of something sweet, such as: 4 ounces fruit juice or regular (not diet) soda 6 lifesavers small box of raisins 4 glucose tablets (~15 gm of glucose) If your BG is very low <50, you can double the amount above or take 30 gm of glucose gel/tablets. Sit and rest and you should feel better within a few minutes. Once you are feeling better, try to determine why your BG was so low. Common causes of hypoglycemia include skipping a meal, lots of exercise, too much insulin or any combination of these things. Understanding the cause my help you to avoidanother low BG in the future. Call your doctor for blood sugars less than 80 or greater than 300 twice in one day to have your insulin doses adjusted. [facility] Endocrine clinic office Patient InstructionsKerr, Lana Espinal MD - 03/29/2014 5:33 PM EDT Patient Instructions on Discharge to Home Why you were hospitalized: Fast heart rhythm (arrhythmia due to multiple causes) When to call your doctor: -Chest pain, worsening shortness of breath, fatigue with usual exertion, or new rest/night time symptoms. -If you become short of breath, cannot lie down to sleep, or have swelling in your legs/ankles or abdomen, contact your health care provider. -Call if you have reduced urination during the day or increased urination at night. -Call for signs of increased wound drainage, redness, swelling, or increased pain at the site of your cardiac cath. -Call if you develop a temp >100.5 Activity level: -No heavy lifting (more than five pounds) for 48 hours; no more than 10 pounds for one week. -You may return to work in 1 week. Use common sense. Don't exhaust yourself. -No hunting, skiing, jogging, snow shoveling, snowmobiling, lawn mowing, swimming, golf or tennis until after your return appointment with your family doctor. -Do not ride motorcycles, tractors or horses until cleared by your doctor. Diet: -Heart healthy: low salt, low fat, low concentrated sweets. Remember to avoid added salt, canned foods, processed foods (ie hot dogs, sausage, cold meats), and foods naturally high in salt, such as potato chips or pizza. Driving: -Per your routine after 48 hrs Smoking cessation: -If you are currently a smoker, you are strongly urged to stop smoking! Smoking increases the severity and incidence of heart disease, and is a risk factor for cancer and emphysema. Your health care provider can provide specific measures to assist you, including nicotine supplements, anti-anxiety meds, and support groups in your community. Follow up Appointments: Future Appointments Date Time Provider Department Center 05/01/2014 10:45 AM David Ayoub MD Lit Derm None 05/01/2014 2:30 PM Katy Dickey APRN Le[facility] Endo [facility] 05/11/2014 1:10 PM Jeff Feliciano MD Leb Cardio [facility] With Gracie Gordon at [phone] on Friday, April 04, 2014 at 08:00am PCP: QUIN GORDON APRN at [phone] Your Inpatient Medical Team at [facility] Name(s) of your inpatient provider(s): Dr. Cathie Venegas - Attending Dr. Cornelia Messer - Fellow Dr. González Craven - Resident Dr. Lana Suarez - Wilderness Guide For questions regarding issues relating to your hospitalization on the Cardiology, please contact your inpatient physician through the [facility] Crime Laboratory Analyst [phone]. Issues after hours and on weekends will be handled by the cardiology technician on-call. Your Primary Care Provider QUIN GORDON APRN [phone] documented in this encounter Medications at Time of Discharge Medication Sig Dispensed Refills Start Date End Date MAGNESIUM GLUCONATE Take 500 mg by mouth 0 ORAL 3 times daily. omeprazole (PRILOSEC) Take 20 mg by mouth 0 20 mg Capsule, Delayed daily. Release(E.C.) metFORMIN (GLUCOPHAGE) Take 1,000 mg by 0 500 mg tablet mouth 2 times daily (with meals). 1000 mg = 2 tablets rivaroxaban 20 mg Take 1 tablet by 30 tablet 12 03/30/2014 1 07/01/2013 Tablet mouth every evening. With meals. (Please run Rx for pricing) insulin glargine Inject 35 units every mornin g. Check blood glucose before breakfast 3 mL 12 03/30/2014 04/03/2014 (LANTUS SOLOSTAR) If blood glucose before [...] blood glucose before each meal. 3 mL 12 03/30/2014 04/03/2014 (NOVOLOG) Insulin Pen Inject 8 units of novolog by pen for breakfast, 8 units for lunch and 8 units for dinner. metoprolol succinate Take 3 tablets by 90 tablet 6 03/30/20 14 04/03/2014 (TOPROL-XL) 50 mg mouth daily. Tablet Sustained Release 24 hr DILTiazem (TIAZAC) 120 Take 1 capsule by 30 capsule 6 201304/03/2014 mg Capsule, Sustained mouth daily. Release simvastatin (ZOCOR) 20 Take 20 mg by mouth 0 01/11/2018 mg tablet nightly. documented as of this encounter Progress Notes Kimberly Mejias RN - 03/30/2014 3:07 PM EDT Community Educator assumed care of pt at 0700. A&OX3. VSS on RA. Pt calm and cooperative in care. Pt OOB with standby assist to bathroom. Pt voiding without difficulties. Pt on heparin drip with PTTs checked and heparin adjusted per MAR. Pt with good appetite. Pt continues to be receptive to diabetic teaching. Pt able to make needs known, call light within reach. Please see MAR and interactive view for additional information. 1430: BG rechecked 2hrs after lunch dose because BG was >240 for lunch. Repeat BG was >240 when rechecked ad 8 units of insulin was given per MAR. Attending MD Venegas at bedside and aware ofelevated BG and is ok with pt being discharged with elevated BG. Discharge order and discontinue IV order placed by MD. IVs removed for discharge. Discharge paperwork reviewed with pt. Pt understands and agrees with discharge and discharge paperwork. Pt given medication from outpatient pharmacy to go home with . Pt wheeled out to [facility] for ride home. Pt had belongings with her on discharge. Cathie Venegas MD - 03/30/2014 2:39 PM EDT Cardiology Attending Note I interviewed and examined the patient during comprehensive bedside rounds. I concur with the summary of interval events, active hospital-focused problem list and plan of care. I personally reviewed the medications, laboratory results, treatment decisions and updated the patient on all of these elements. The process of reviewing all findings, answering all questions, and explaining activity limitations and follow up plans required 20 minutes. Cathie Venegas MD [facility] staff boat person/ pager [phone] Lana Suarez MD - 03/30/2014 2:36 PM EDT Cardiology Inpatient- Day of Discharge Note S: The patient was seen with team during rounds. Medications were reviewed. The patient feels ready for discharge. O: Last value 24hr range T 36.6 ??C (97.9 ??F) Temp: [36.5 ??C (97.7 ??F)-36.6 ??C (97.9 ??F)] HR 76 Heart Rate: [58-76] BP 127/73 mmHg BP: (109-150)/(45-73) RR 18 Resp: [12-18] SpO2 98 % SpO2: [97 %-99 %] PE: Gen: female in NAD pleasant conversant HEENT: MMM CV: RRR no m/r/g no JVD Resp: CTA bilaterally Abdomen: soft, non-distended +BS BLE: 2+ DP pulses, no edema Neuro: AOx3 non-focal A: - All questions answered. - OK for discharge - See discharge summary for details and follow-up plans. P: Discharge to home in stable condition on rivaroxiban - Follow-up appointments have been scheduled - Return precautions for worsening or changing symptoms Team pager 201003/30/2014 >30 minutes spent in organizing her discharge Dennis Mitchell MSW - 03/30/2014 12:04 PM EDT Arrangements made for RCT to transport patient home to [place], [place] at 3 pm. Leticia Paz APRN - 03/30/2014 9:46 AM EDT Images from the original note were not included. Follow Up Diabetes Consult Patient Interview Hope was up in her chair anticipating discharge. She has been working with nursing and states she is comfortable with calculating her correction with her meal time dosing, this is confirmed by nursing. Objective Temp: [36.5 ??C (97.7 ??F)-36.6 ??C (97.9 ??F)] Heart Rate: [58-74] Resp: [12-18] BP: (109-150)/(45-76) SpO2: [97 %-99 %] Current Regimen Lantus:28 units at 2100 Novolog 1:8 insulin to carbohydrate ratio Novolog for correction q 4 hours using sensitive sliding scale Recent Glucose Levels ASSESSMENT Patient is a 63 y.o. years old female with PMH significant for DM (Last A1C of 10.4) who was admitted on 03/29/2014 for a-fib and SVT. Diabetes suboptimally controlled and complicated by stress of hospitalization. Currently with variability of blood glucose levels while hospitalized requiring adjustment of insulin regimen and DM medications. Her BG levels remained elevated over night with a FBG of 239 indicating she requires and increase inboth basal and bolus insulin. Discharge instructions provided and reviewed. Appreciate nurse teaching. She will follow up in endocrine clinic, she knows she may call with any questions. PLAN Lantus: 35 units at 2100 Novolog 1:6 insulin to carbohydrate ratio Novolog for correction q 4 hours using moderate sliding scale Leticia Paz APRN [facility] Endocrinology Diabetes Management 20 minutes of this 35 minute visit was spent with the patient in counseling on diabetes and treatment plan, reviewing all glucose and insulin data as well as relevant laboratory results with the patient, and coordination of care on the inpatient unit Insulin Discharge Instructions You have a follow-up appointment in Endocrine Clinic Section (5C) with Katy Dickey APRN May 11 at 2:30 pmPlease take your meter, glucose and insulin log with you to the appointment. Resume your metformin 1000 mg by mouth. Take with breakfast and supper Do not take if you are not eating Instructions for Lantus Insulin (LONG ACTING) 1. Inject LANTUS 35 units insulin every morning. Check blood glucose (BG) before breakfast 3. If the blood glucose before breakfast is over 150 for two days in a row, add TWO units of insulinto the next LANTUS dose. This increased dose becomes your new dose, continue to increase as needed. 4. If the blood glucose before breakfast is under 90 for two days in a row, subtract TWO units of insulin from the next LANTUS dose. This lower dose becomes your new dose, continue to decrease as needed. Instructions for Mealtime Novolog insulin (RAPID ACTING) 1. Check blood glucose before each meal. 2. Inject 8 units of novolog by pen for breakfast, 3. 8 units for lunch and 4. 8 units for dinner. ADD the following dose if your blood glucose is over 140 at meal time. Blood Sugar NOVOLOG DOSE 140-159 ADD 2 unit 160-179 ADD 3 units 180-199 ADD 4 units 200-219 ADD 5 units 220-239 ADD 6 units 240-259 ADD 7 units 260-279 ADD 8 units 280-299 ADD 9 units >300 ADD 10 units and call Doctor 6. If you should forget to take your Novolog. If it is less than an hour since you ate your meal, take the calculated dose If more than an hour has passed since you ate, recheck blood glucose and dose accordingly. Try to get some extra exercise and drink a lot of water to help with the high blood sugar. Treatment of Low Blood Sugar (Hypoglycemia) If your BG is lower than 80, you are likely to feel shaky, sweaty and lightheaded. This is a signal that your body needs more sugar. Quickly eat or drink a small serving of something sweet, such as: 4 ounces fruit juice or regular (not diet) soda 6 lifesavers small box of raisins 4 glucose tablets (~15 gm of glucose) If your BG is very low <50, you can double the amount above or take 30 gm of glucose gel/tablets. Sit and rest and you should feel better within a few minutes. Once you are feeling better, try to determine why your BG was so low. Common causes of hypoglycemia include skipping a meal, lots of exercise, too much insulin or any combination of these things. Understanding the cause my help you to avoidanother low BG in the future. Call your doctor for blood sugars less than 80 or greater than 300 twice in one day to have your insulin doses adjusted. [facility] Endocrine clinic office arghese Jo - 03/29/2014 8:49 AM EDT Nursing Student Encounter Note Patient Name: Hope Busby : [id number] MR#: [id number] Admit Date: 03/29/2014 2:04 AM Hospital Day 0 days Narrative:Visited to introduce and assess acceptance of Nursing Student services. Pt was awake, alert, oriented and in bed. Pt says that she is feeling better now. Pt shared that her three daughters are living in same area [facility] and they are supportive. Assessment:Patient coping positively with stresses of illness/hospitalization at this time. Pt has family care and support and appreciative of family. Pt is hoping to get better and go home. Intervention and Outcome:Provided emotional support and encouraging presence. Nursing Student services accepted. Conversation to build trusting relationship. Provided pastoral presence. Provided spiritual guidance. Follow-up: Yes Time in Direct Care:10 Mins Varghese Chanel 03/29/2014 documented in this encounter H&P Notes Cathie Venegas MD - 03/29/2014 2:30 AM EDT Inpatient Cardiology - Admission History & Physical - M1S1 - Pager [phone] Presenting diagnosis/chief complaint: Atrial Fibrillation/SVT History of present illness: Hope Busby is a 63 y.o. female with PMH of HTN, HLD, DM Type II, SVT/AFib, Rheumatoid Arthritis, GERD, among others, who presents with heart racing/palpitations and not feeling well. Patient states she was having a lazy Deborah at home, not doing much. She was taking a nap on the couch in the afternoon. She awoke and states she had a really bad headache. She didn't feel quite right, but couldn't states specifically what was wrong. She denied CP at that time and states her heart r ate was normal. She states she just felt foggy and had no ambition. She then went back to sleep and woke up again around 1800. She continued to not feel well with dry mouth and shakiness. At that point she tried to eat, but that did not settle how she was feeling. At that point, she went back to sleep on the couch until 2100, when she awoke, still feeling poorly. She states at that time she had a SMITH, stomach turning/nausea and diaphoresis. Then she began to notice her heart racing and tried to stop with vagal and carotid massage (as she was taught to do before). She then became cold and clammy and states her HR was out of control. She denied CP or SOB. Since this was similar to previous episodes, but not resolving, she called 911 and was taken to [facility]. En route, patient was found have a HR of 160-170 range and was given Dilt IV push, which helped reduced her HR and her symptoms. Per EMS report, at that time the rhythm was clearly AFib. Her BP was stable during transport in the 120-130 SBP. When she arrived there, she still felt poorly. Her HR was still elevated. Patient was given Dilt 20 mg IV bolus and started on a gtt. She also received Metoprolol 5 mg IV and Metoprolol 100 mg PO. Her heart rate continued to be elevated in the 130-140 range, again with stable BP. Patient was then discussed with [facility] Cardiology and transferred for further evaluation. En route to [facility], patient spontaneously converted to NSR with rates in the 80-90's and all of her symptoms resolved. She was continued on the Dilt gtt. Upon arrival, patient states she feels back to normal. She only complains of being thirsty and having a dry mouth. OSH Labs/Studies: - WBC 10.4, Hgb 13.5, Hct 41.6, Plt 390 - Na 139, K 4.6, Cl 104, CO2 23, BUN 23, Cr 0.8, Glu 248, Ca 8.6, Mg 1.3 L, Trop <0.02 - EKG: AFib with RVR @ 140; no acute ST-T changes, no delta waves Of note, patient states she has had this problem off and on for 4-5 years. Initially when it started, she was able to control it with carotid massage or vagal maneuvers. She only had to go to the hospital 3-4 times during that period. However, this summer the frequency of the episodes appears to have i ncreased, as she had 4-5 episodes and had to go the hospital many times. She would call EMS after she tried carotid massage and/or vagal maneuvers without effect. She states when she went to the hospital, the doctors called it either SVT or AFib at different times and she is unsure which it is. She states no new medications were started after these episodes. Per a Cardiology note sent with her transfer packet date 03/01/14, she has received Dilt IV and Adenosine during some of these hospital visits with good effect. One particular episode, her HR was found to be in the 190-210 range. She believes there is a correlation between the episodes and heat/humidity. She states she tries to stay in and not go out in the sun. In the Cardiology note, the physician mentions a correlation with low Mg and how her rhythm appears responsive to correction of low Mg. Cardiac History: - SVT/AFib - No history of CAD - No history of COPD, Asthma or other lung pathology Past medical/surgical history: Past Medical History Diagnosis Date ??? Hypertension ??? Diabetes mellitus ??? GERD (gastroesophageal reflux disease) ??? Rheumatoid arthritis ??? SVT (supraventricular tachycardia) ??? Melanoma in situ s/p removal Review of systems: General: -fevers/chills/sweats, -weight loss, -fatigue Eyes: -change in vision, -blurry vision, -loss of vision ENT: -dysphagia, -sore throat, -hearing Cardiovascular: -CP, -palpitations, -orthopnea, -PND, -edema Respiratory: -dyspnea, -cough, -sputum production, -hemoptysis, -wheeze GI: -abdominal pain, +nausea/vomiting, -diarrhea, -constipation, -hematochezia, -melena : -hematuria, -dysuria, -frequency, -urgency Musculoskeletal: +joint pains: feet, knees, arms, shoulders, fingers, +joint swelling, -muscular pain Neuro: +numbness/tingling: feet, -focal weakness Hem/Lymph: no easy bruising or bleeding Medications: - Acarbose 25 mg TID - ASA 81 mg QD - Glipizide 10 mg BID - Ibuprofen 800 mg q8h PRN - Lantus 28U qHS - Lisinopril 5 mg QD - Mag Gluc 500 mg TID - Meloxicam 15 mg QD - Metformin 1000 mg BID - Metoprolol 50 mg BID - Omeprazole 20 mg QD - Simvastatin 20 mg QD Allergies: Allergies Allergen Reactions ??? Trazodone hallucinations Social history: - Tobacco: Quit smoking about 30 years; Smoked 2 ppd for 15 years - EtOH: Quit heavy drinking 30 years ago; rare drink when she goes out (1 drink/3-4 months) - Illicits: Rare Marijuana - Living Situation: Lives at home alone, has 1 cat and a blue crest [employer] parrot - Occupation: Disability Significant family history: - No family history of arrhythmia - Mother had heart disease and diabetes, passed at 65 from both - Father at 92, natural causes - Youngest sister with MS - 2nd youngest sister with diabetes and lazy heart valve - Oldest sister passed from Lung Cancer - No siblings with heart disease Physical Exam: Vitals: Filed Vitals: 03/29/14 0226 BP: 133/82 Pulse: 83 Temp: 37 ??C (98.6 ??F) Resp: 18 Gen: ANOx3, NAD, Obese, Pleasant Eyes: PERRL, EOMI, anicteric ENT: MMM, -erythema/exudate, neck supple, no LAD, no JVD CV: RRR, Regular Rate, Normal S1/S2, -m/r/g appreciated Respiratory: Good Aeration, CTAB posteriorly, -w/r/r GI: Soft, NT/ ND, + BS, -r/g Skin: Warm and Dry, no lesions Neuro: CN 2-12 intact, nl Strength/Sensation, no focal deficits Ext: No edema, 2+ PT pulses Laboratory: - CBC 8.7, Hgb 12.8, Hct 39.4, Plt 407 - PT 12.7, INR 0.9, PTT 27 - Na 138, K 4.8, Cl 103, CO2 22, BUN 23, Cr 0.74, Glu 416, Ca 8.9, Mg 0.66 - Hgb A1c 10.4% - Trop <0.03, CK 77 - TChol 124, HDL 56, TG 102, LDL 48 - TSH 0.62 Microbiology: None Radiology/Other Pertinent Studies: - CXR 03/29: Pending - TTE 03/29: Pending - EKG 03/29: NSR with PACs Assessment/Plan: Hope Busby is a 63 y.o. female with PMH of HTN, HLD, DM Type II, SVT/AFib, Rheumatoid Arthritis, GERD, among others, who presents with heart racing/palpitations and not feeling well. Her history of heart racing/palpitations is consistent with an SVT. It is unclear whether this is truly AFib or another paroxysmal SVT. Her EKG from the OSH is at a rate of 140 and is mostly irregular, which means it is likely Afib vs MAT. There are P-waves that can be found, but they are not similar in any fashion, do not march out nicely and are not present throughout, leading to AFib being more likely. The paroxysmal nature of her episodes can speak to either pAF or pSVT, but her having episodes with HR near 200 (per report) does not sound like AFib/AFlutter. Also, termination with vagal maneuvers, carotid massage (and potentially Adenosine) speak against AFib/AFlutter. Speaking for AFib is the irregular rhythm, lack of regular P-waves and the rate. Her current EKG shows NSR with frequentPACs, however these PACs have a P-wave with different morphology, which means it is conduction from another focus. For now, will continue with rate control and replete her electrolytes. It may be of benefit to have EP see her regardless of the rhythm to talk about strategies (rate vs rhythm) to control these episodes (as she dramatically symptomatic) and consider ablation. If this is truly AFib, willneed to discuss outpatient anticoagulation with her as her [id number] score is 4 (age = 1, sex = 1, HTN = 1, DM = 1) with a 9.3% risk of stroke. #SVT/AFib - Continue Rate control with Dilt gtt - Increased PO Metoprolol to 37.5 mg q6h - Consider EP evaluation - Discuss outpatient anti-coagulation if only AFib/AFlutter; Heparin gtt - Replete Electrolytes PRN - Obtain OSH records from previous episodes #HTN - Continue Lisinopril and Metoprolol #DM Type II - Holding home oral agents - SSI - Lantus 20U nightly (2/3 home) - Consider Diabetes consult and education #HLD - Changed to Atorvastatin while on Dilt gtt #GERD - Esomeprazole 20 mg QD #RA - Ibuprofen PRN - Holding Meloxicam #Diet: NPO #DVT: Heparin gtt #Dispo: Home pending resolution #Code Status: FULL CODE HECTOR COX MD Cardiology S1 Night Float - 3011 03/29/2014 Cardiology Attending Note I interviewed and examined the patient during comprehensive bedside rounds. I concur with the summary of interval events, active hospital-focused problem list and plan of care. I personally reviewed the medications, laboratory results, treatment decisions and updated the patient on all of these elements. Interesting 12 lead ECG demonstrating a very short VA suggesting a tasia- dependent pathway. I appreciate input from EP. Cathie Venegas MD [facility] staff boat person/ pager [phone] documented in this encounter Procedure Notes Provider, Scanning - 03/31/2014 2:06 PM EDTAssociated Order(s): SCAN DOC: ECG Provider, Scanning - 03/31/2014 12:51 PM EDTAssociated Order(s): SCAN DOC: MOCCASIN SEWER documented in this encounter Consult Notes Provider, Scanning - 03/31/2014 2:04 PM EDT documented in this encounter Miscellaneous Notes Discharge Summary - Cathie Venegas MD - 03/30/2014 1:52 PM EDT Discharge Summary Patient Name: Hope Busby Patient Age: 63 y.o. Language: Ukrainian Race: White Ethnicity: Not nor Admit date: 03/29/2014 Discharge date and time: 03/30/2014 Attending Physician: Cathie Venegas MD Discharge Physician: Lana Suarez MD Follow-up Recommendations for Providers: Discussed with triage nurse at [facility] ([phone]) that would appreciate outpatient Holter monitor prior to her appointment with EP. Inpatient Provider Contact Information: Dr. Cathie Venegas - Attending Dr. Cornelia Messer - Fellow Dr. González Craven - Resident Dr. Lana Suarez - Wilderness Guide Discharge Diagnoses (Hospital Problems) and Secondary Diagnoses (Chronic Problems): Active Hospital Problems Diagnosis ??? SVT (supraventricular tachycardia) ??? Diabetes mellitus ??? Atrial fibrillation Resolved Hospital Problems Diagnosis Date Resolved No resolved problems to display. Active Non-Hospital Problems Diagnosis ??? Gait instability ??? Seronegative arthritis ??? Osteoarth NOS-pelvis ??? Osteoarth NOS-l/leg ??? Osteoarth NOS-ankle ??? Nevus ??? History of malignant melanoma ??? History of basal cell carcinoma ??? Personal history of malignant melanoma ??? Rosacea ??? Basal cell carcinoma of back ??? Malignant melanoma Apr 2010 - upper central back Operations/Major Procedures: Operations: * No surgery found * Other Major Procedures: None History of Presentation: Hope Busby is a 63 y.o. female with PMH of HTN, HLD, DM Type II, SVT/AFib, Rheumatoid Arthritis, GERD, among others, who presents with heart racing/palpitations and not feeling well. Patient states she was having a lazy Deborah at home, not doing much. She was taking a nap on the couch in the afternoon. She awoke and states she had a really bad headache. She didn't feel quite right, but couldn't states specifically what was wrong. She denied CP at that time and states her heart r ate was normal. She states she just felt foggy and had no ambition. She then went back to sleep and woke up again around 1800. She continued to not feel well with dry mouth and shakiness. At that point she tried to eat, but that did not settle how she was feeling. At that point, she went back to sleep on the couch until 2100, when she awoke, still feeling poorly. She states at that time she had a SMITH, stomach turning/nausea and diaphoresis. Then she began to notice her heart racing and tried to stop with vagal and carotid massage (as she was taught to do before). She then became cold and clammy and states her HR was out of control. She denied CP or SOB. Since this was similar to previous episodes, but not resolving, she called 911 and was taken to [facility]. En route, patient was found have a HR of 160-170 range and was given Dilt IV push, which helped reduced her HR and her symptoms. Per EMS report, at that time the rhythm was clearly AFib. Her BP was stable during transport in the 120-130 SBP. When she arrived there, she still felt poorly. Her HR was still elevated. Patient was given Dilt 20 mg IV bolus and started on a gtt. She also received Metoprolol 5 mg IV and Metoprolol 100 mg PO. Her heart rate continued to be elevated in the 130-140 range, again with stable BP. Patient was then discussed with [facility] and transferred for further evaluation. En route to [facility], patient spontaneously converted to NSR with rates in the 80-90's and all of her symptoms resolved. She was continued on the Dilt gtt. Upon arrival, patient states she feels back to normal. She only complains of being thirsty and having a dry mouth. OSH Labs/Studies: - WBC 10.4, Hgb 13.5, Hct 41.6, Plt 390 - Na 139, K 4.6, Cl 104, CO2 23, BUN 23, Cr 0.8, Glu 248, Ca 8.6, Mg 1.3 L, Trop <0.02 - EKG: AFib with RVR @ 140; no acute ST-T changes, no delta waves Of note, patient states she has had this problem off and on for 4-5 years. Initially when it started, she was able to control it with carotid massage or vagal maneuvers. She only had to go to the hospital 3-4 times during that period. However, this summer the frequency of the episodes appears to have i ncreased, as she had 4-5 episodes and had to go the hospital many times. She would call EMS after she tried carotid massage and/or vagal maneuvers without effect. She states when she went to the hospital, the doctors called it either SVT or AFib at different times and she is unsure which it is. She states no new medications were started after these episodes. Per a Cardiology note sent with her transfer packet date 03/01/14, she has received Dilt IV and Adenosine during some of these hospital visits with good effect. One particular episode, her HR was found to be in the 190-210 range. She believes there is a correlation between the episodes and heat/humidity. She states she tries to stay in and not go out in the sun. In the Cardiology note, the physician mentions a correlation with low Mg and how her rhythm appears responsive to correction of low Mg. Hospital Course: SVT: The patient was admitted and the patient was found to be in a sinus rhythm on EKG. The diltiazem gttwas continued on HD#1 as she was in sinus rhythm. The EP team was consulted and recommended a Holtermonitor and a follow up appointment in 4-6 weeks. We discussed this with the nurse at the patient's PCP office and she is going to help facilitate prescribing the Holter monitor at her appointment scheduled this week. She was given metoprolol and diltiazem orally while inpatient. She was continued on a heparin gtt during her inpatient stay and prescribed a dose of rivaroxaban. Risks and benefits of detention anticoagulation options were discussed and the patient elected for rivaroxaban as she has a non-valvular arrhythmia. The patient was monitored on tele and found to have no further episodes and was deemed stable for discharge home on metoprolol and diltiazem. Hyperglycemia On admission the patient's HgA1C was >10. The diabetes management team was consulted who went anddiscussed options with the patient. They recommended stopping her sulfanuria (which was done) and discharging her home on meal associated insulin in addition to her lantus and metformin. Functional and Cognitive Status: At baseline Important Studies and Lab Data: Labs: Lab Results Component Value Date WBC 9.1 03/30/2014 HGB 13.1 03/30/2014 HCT 40.2 03/30/2014 PLATELET 386* 03/30/2014 Recent Labs Basename 03/29/14 0319 INR 0.9 Lab Results Component Value Date NA 140 03/30/2014 K 4.1 03/30/2014 CL 103 03/30/2014 CO2 23 03/30/2014 BUN 15 03/30/2014 CREATININE 0.62* 03/30/2014 Recent Labs Basename 03/29/14 031 TSH 0.62 Recent Labs Basename 03/29/14318 HA1C 10.4* Recent Labs Basename 03/29/14318 CK 77 TROPONINT <0.03 Lab Results Component Value Date CHLPL 124 03/29/2014 HDL 56 03/29/2014 CHOLHDL 2.2 03/29/2014 TRIG 102 03/29/2014 LDLCHOL 48 03/29/2014 Pending Studies and Lab Data: Holter-to be completed as an outpatient Discharge Conditions/Prognosis: Stable Discharge to: Home Updated Allergies/ADRs: Allergies Allergen Reactions ??? Trazodone hallucinations Immunizations Given this Hospitalization: Immunization History Administered Date(s) Administered ??? Influenza Vaccine, Whole 05/05/2007 Discharge Medications: Your Medications As of 03/30/2014 2:27 PM Notice Some of the medications listed here do not show instructions, such as how often to take the medication. Ask your doctor or nurse how to use these medications. New Medications Dose Details DILTiazem 120 mg Cpsr Commonly known as: TIAZAC Take 1 capsule by mouth daily. 120 mg Quantity: 30 capsule Refills: 6 insulin aspart Inpn Commonly known as: novoLOG Check blood glucose before each meal. Inject 8 units of novolog by pen for breakfast, 8 units for lunch and 8 units for dinner. Quantity: 3 mL Refills: 12 metoprolol succinate 50 mg Tablet sr Commonly known as: TOPROL-XL Take 3 tablets by mouth daily. 150 mg Quantity: 90 tablet Refills: 6 rivaroxaban 20 mg Tab Take 1 tablet by mouth every evening. With meals. (Please run Rx for pricing) 20 mg Quantity: 30 tablet Refills: 12 Continued medications with new dosing Dose Details insulin glargine Inpn Commonly known as: LANTUS Inject 35 units every morning. Check blood [...] to decrease as needed. What changed: - dose - route (how to take the med) - how often to take the med - doctor's instructions Quantity: 3 mL Refills: 12 Continued medications, unchanged Dose Details aspirin 81 mg Tbec Take 81 mg by mouth daily. 81 mg Refills: 0 lisinopril 5 mg Tab Commonly known as: PRINIVIL;ZESTRIL Take 5 mg by mouth daily. 5 mg Refills: 0 MAGNESIUM GLUCONATE ORAL Take 500 mg by mouth 3 times daily. 500 mg Refills: 0 meloxicam 15 mg Tab Commonly known as: MOBIC Take 15 mg by mouth daily. 15 mg Refills: 0 metFORMIN 500 mg Tab Commonly known as: GLUCOPHAGE Take 1,000 mg by mouth 2 times daily (with meals). 1000 mg = 2 tablets 1000 mg Refills: 0 omeprazole 20 mg Cpdr Commonly known as: PriLOSEC Take 20 mg by mouth daily. 20 mg Refills: 0 simvastatin 20 mg Tab Commonly known as: ZOCOR Take 20 mg by mouth nightly. 20 mg Refills: 0 STOPPED Medications acarbose 25 mg Tab Commonly known as: PRECOSE glipiZIDE 10 mg Tab Commonly known as: GLUCOTROL ibuprofen 800 mg Tab Commonly known as: ADVIL;MOTRIN metoprolol tartrate 50 mg Tab Commonly known as: LOPRESSOR Smoking Status at Discharge: History Smoking status ??? Former Smoker ??? Types: Cigarettes ??? Quit date: 06/22/1979 Smokeless tobacco ??? Not on file Comment: per phone call 01/02/2011 Instructions Given to Patient at Discharge: Patient Instructions Patient Instructions on Discharge to Home Why you were hospitalized: Fast heart rhythm (arrhythmia due to multiple causes) When to call your doctor: -Chest pain, worsening shortness of breath, fatigue with usual exertion, or new rest/night time symptoms. -If you become short of breath, cannot lie down to sleep, or have swelling in your legs/ankles or abdomen, contact your health care provider. -Call if you have reduced urination during the day or increased urination at night. -Call for signs of increased wound drainage, redness, swelling, or increased pain at the site of your cardiac cath. -Call if you develop a temp >100.5 Activity level: -No heavy lifting (more than five pounds) for 48 hours; no more than 10 pounds for one week. -You may return to work in 1 week. Use common sense. Don't exhaust yourself. -No hunting, skiing, jogging, snow shoveling, snowmobiling, lawn mowing, swimming, golf or tennis until after your return appointment with your family doctor. -Do not ride motorcycles, tractors or horses until cleared by your doctor. Diet: -Heart healthy: low salt, low fat, low concentrated sweets. Remember to avoid added salt, canned foods, processed foods (ie hot dogs, sausage, cold meats), and foods naturally high in salt, such as potato chips or pizza. Driving: -Per your routine after 48 hrs Smoking cessation: -If you are currently a smoker, you are strongly urged to stop smoking! Smoking increases the severity and incidence of heart disease, and is a risk factor for cancer and emphysema. Your health care provider can provide specific measures to assist you, including nicotine supplements, anti-anxiety meds, and support groups in your community. Follow up Appointments: Future Appointments Date Time Provider Department Center 05/01/2014 10:45 AM David Ayoub MD Lit Derm None 05/01/2014 2:30 PM Katy Dickey APRN [facility] End[facility] 05/11/2014 1:10 PM Jeff Feliciano MD Leb Cardio [facility] With Gracie Gordon at [phone] on Friday, April 04, 2014 at 08:00am PCP: QUIN GORDON APRN at [phone] Your Inpatient Medical Team at [facility] Name(s) of your inpatient provider(s): Dr. Cathie Venegas - Attending Dr. Cornelia Messer - Fellow Dr. González Craven - Resident Dr. Lana Suarez - Wilderness Guide For questions regarding issues relating to your hospitalization on the Cardiology, please contact your inpatient physician through the [facility] Crime Laboratory Analyst [phone]. Issues after hours and on weekends will be handled by the cardiology technician on-call. Your Primary Care Provider QUIN GORDON APRN [phone] General Instructions Insulin Discharge Instructions You have a follow-up appointment in Endocrine Clinic Section (5C) with Katy Dickey SHO May 11 at 2:30 pmPlease take your meter, glucose and insulin log with you to the appointment. Instructions for Lantus Insulin (LONG ACTING) 1. Inject LANTUS 35 units insulin every morning. Check blood glucose (BG) before breakfast 3. If the blood glucose before breakfast is over 150 for two days in a row, add TWO units of insulinto the next LANTUS dose. This increased dose becomes your new dose, continue to increase as needed. 4. If the blood glucose before breakfast is under 90 for two days in a row, subtract TWO units of insulin from the next LANTUS dose. This lower dose becomes your new dose, continue to decrease as needed. Instructions for Mealtime Novolog insulin (RAPID ACTING) 1. Check blood glucose before each meal. 2. Inject 8 units of novolog by pen for breakfast, 3. 8 units for lunch and 4. 8 units for dinner. ADD the following dose if your blood glucose is over 140 at meal time. Blood Sugar NOVOLOG DOSE 140-159 ADD 2 unit 160-179 ADD 3 units 180-199 ADD 4 units 200-219 ADD 5 units 220-239 ADD 6 units 240-259 ADD 7 units 260-279 ADD 8 units 280-299 ADD 9 units >300 ADD 10 units and call Doctor 6. If you should forget to take your Novolog. If it is less than an hour since you ate your meal, take the calculated dose If more than an hour has passed since you ate, recheck blood glucose and dose accordingly. Try to get some extra exercise and drink a lot of water to help with the high blood sugar. Treatment of Low Blood Sugar (Hypoglycemia) If your BG is lower than 80, you are likely to feel shaky, sweaty and lightheaded. This is a signal that your body needs more sugar. Quickly eat or drink a small serving of something sweet, such as: 4 ounces fruit juice or regular (not diet) soda 6 lifesavers small box of raisins 4 glucose tablets (~15 gm of glucose) If your BG is very low <50, you can double the amount above or take 30 gm of glucose gel/tablets. Sit and rest and you should feel better within a few minutes. Once you are feeling better, try to determine why your BG was so low. Common causes of hypoglycemia include skipping a meal, lots of exercise, too much insulin or any combination of these things. Understanding the cause my help you to avoidanother low BG in the future. Call your doctor for blood sugars less than 80 or greater than 300 twice in one day to have your insulin doses adjusted. [facility] [place] [place] Future Appointments and Orders Future Appointments: Provider: Department: Dept Phone: Center: 05/01/2014 10:45 AM David Ayoub MD [facility] [phone] None 05/01/2014 2:30 PM Katy Dickey APRN Endocrinology [phone] [facility] 05/11/2014 1:10 PM Jeff Feliciano MD Cardiology [phone] [facility] Joint Appt Nurse One Cardiology Intake, RN [place] [phone] [facility] Discharge References/Attachments None Plan of Care - Natalie Zepeda RN - 03/30/2014 6:29 AM EDT Problem: Pain, Acute (Adult, Obstetrics) Goal: Acceptable Pain Control/Comfort Level Patient will demonstrate the desired outcomes. 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 She appeared to sleep well during the night. Addendum - no signs of obstructive sleep apnea observed during the night. Consult Note - Leticia Paz APRN - 03/29/2014 3:16 PM EDT Diabetes Management Team Inpatient Consult Date of Consultation: 03/29/2014 Consult Requested by: Dr Suarez cardiology Reason for Consultation: Hope Busby is a 63 y.o. years old female with PMH significant for Type 2 DM who was admitted on 03/29/2014 currently being treated for a-fib and SVT. We are being consulted to assist with diabetes management and to provide a review of detention diabetes care. Diabetes History: Hope Busby has had diabetes for about 33 years. She had gestational diabetes with both pregnancies then it returned 4 years later. She controlled it by diet for about 4 years. She then started metformin and enjoyed good control for about 10-12 years. She was then started on lots of meds that made me gain weight She reached a maximum weight of 347 lbs and decided to wean myself off the pills. She started walking, horse backriding changed her diet and lost 187 lbs. Then she got sick and heractivity level significantly decreased. She realized she could not ignore her diabetes any more. Grupoesumed metformin, started actos and hated it for the weight gain stopped that and after numerous medication changes she is now on metformin glipizide acarbose and lantus. She states she takes her metformin and glipizide at 10 am and 10 pm and her acarbose before meals and lantus at night. Her diet ismoderately high in carbohydrates. Current outpatient diabetes regimen: Medications: metformin 1000 mg, glipizide 10 mg po bid 10 am 10 pm, acarbose 25 mg po tid before meals Lantus 28 units q pm Monitoring is done 2 times a day Most recent HA1c was done on 03/29/14 and was 10.4%, suggesting an average glucose of 252 mg/dL for the past 6-8 weeks. Typical diet is: 3 meals and rarely snacks a day Typical exercise regimen is walks 1 mile 1-2 times a week, mall in winter time Trouble with hypoglycemia occasionally, last one 2 weeks ago treats with peanut butter. Diabetes Complications Status: Eyes: None Kidneys: None Feet: None Sensory: None Autonomic: neuropathy Cardiac: No known CAD, +dysrhythmias Current Hospital Diabetes Care: Medications: Novolog resistant sliding scale q 4 hrs Monitoring: q 4 hrs Diet: level 2 carb control ROS: Constitutional: No recent weight change Endocrine: No thyroid problems Eyes: No recent vision change ENT: No dysphagia, dental issues Cardiovascular: No chest pain Respiratory: No wheezing , shortness of breath GI: No nausea, vomiting, diarrhea, constipation : No frequent urinary tract infections Neurological: No weakness or numbness PMH Past Medical History Diagnosis Date ??? Hypertension ??? Diabetes mellitus ??? GERD (gastroesophageal reflux disease) ??? Rheumatoid arthritis ??? SVT (supraventricular tachycardia) ??? Melanoma in situ s/p removal Current Hospital Medications: ASA lipitor nexium aspart lisinopril lopressor Allergy: Allergies Allergen Reactions ??? Trazodone hallucinations Social history: History Substance Use Topics ??? Smoking status: Former Smoker Types: Cigarettes Quit date: 06/22/1979 ??? Smokeless tobacco: Not on file Comment: per phone call 01/02/2011 ??? Alcohol Use: Yes Comment: 1 drink every 3-4 months Family history: History reviewed. No pertinent family history. Vitals Last value Range last 24 hrs Temperature Temp: 36.6 ??C (97.9 ??F) Temp: [36.6 ??C (97.9 ??F)-37 ??C (98.6 ??F)] Heart Rate Heart Rate: 68 Heart Rate: [68-83] Blood Pressure BP: 139/61 mmHg BP: (125-139)/(61-82) Respiratory Rate Resp: 16 Resp: [16-18] SpO2 SpO2: 98 % SpO2: [96 %-98 %] Physical Exam: Gen: NAD, talking in clear sentences. Laying in bed comfortably HEENT: no LAD, no thyromegaly Heart: RRR, no murmurs. Radial pulses +2. Lungs: CTAB, breathing non-labored. No wheezes or rhonchi. Good aeration Abd: Soft, non-distended, non-tender x4 quadrants, +bs Ext: No edema Neuro: Moving all extremities. Grossly non-focal Labs: Recent Labs Basename 03/29/14318 WBC 8.7 HGB 12.8 HCT 39.4 PLATELET 407* NEUTROABS 6.50* Recent Labs Basename 03/29/14318 NA 138 K 4.8 CL 103 CO2 22 BUN 23* CREATININE 0.74 GLUCOSE -- Recent Labs Basename 03/29/14318 CALCIUM 8.9 MAGNESIUM 0.66* PHOS 2.6 Recent Labs Basename 03/29/14318 PROT 6.9 ALBUMIN 3.8 AST 15 ALT 16 ALKPHOS 47 BILITOT <0.2* BILIDIR <0.1 Recent Labs Basename 03/29/14318 INR 0.9 PT 12.7 PTT 27 Recent Labs Basename 03/29/14318 TROPONINT <0.03 CK 77 No results found for this basename: GLUCOSE:10 in the last 168 hours Assessment: Patient is a 63 y.o. years old female with PMH significant for DM (Last A1C of 10.4) who was admitted on 03/29/2014 for a-fib and SVT. Diabetes suboptimally controlled and complicated by stress of hospitalization. Currently with variability of blood glucose levels while hospitalized requiring adjustment of insulin regimen and DM medications. Hope had an appointment today to establish care in [facility]. We will reschedule this for her as she states she would like to be followed here. We discussed treating hypoglycemia with a fast acting sugar such as life savers, juice or soda. We also discussed that the metformin and glipizide should be taken before a meal. 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 The [place] [employer] (ADA) and the Association for the Study of Diabetes (EASD) have released a position statement for a patient centered approach to management of hyperglycemia in type 2 diabetes. (Diabetes Care Volume November) This position statement provided a truly holistic approach to choosing treatment options taking into consideration patients attitude and expected treatment efforts, risks potentially associated with hypoglycemia or other adverse events, disease duration (new diabetic or lang standing) life expectancy, important co morbidities, established vascular complications and resources and support systems. They support less stringent HgbA1C goals of 7.5%-8.0% or even slightly higher in patients with history of or risk for severe hypoglycemia, limited life expectancy, advanced complications or extensive comorbid conditions. They recommend initiation of metformin as single agent first line therapy noting that if HgbA1C if >9 combination therapy would bejustified. Insulin therapy as first line treatment should be considered if the patient presents withsignificant hyperglycemic symptoms and/or has dramatically elevated plasma blood glucose > 300-350 or HgbA1C >10-12%. Since her Hgb is >10 on several medications it would be prudent to initiate basal bolus insulin to achieve improved glycemic control. She is only 63 and so far has escaped many of the complications associated with diabetes. She agrees to this approach. We should continue her metformin as this will help decrease her totally daily insulin needs and help combat the weight gain associated with insulin. Since her FBG have been well controlled at 80 to 120 she is likely on the appropriate lantus dose indicating a total daily insulin requirement of 56. Using the rule of 500 she would require 1unit of insulin for every 8 grams of carbohydrates. Using the rule of 1800 she would have a sensitivity of 32 meaning 1 unit of insulin would decrease her BG by 32 points. She may prove to be more insulin resistant since we will be stopping 2 of her oral agents, glipizide and acarbose, but this would be a safe dosing to start with to avoid hypoglycemia. We will continue to follow. Discussed with primary team, they will enter orders. On discharge she will need rapid acting insulin, she would like this in vial with syringes. Plan: 1. Lantus 28 units qd at 2100 may give today's dose early as she missed last night 2. Novolog sensitive sliding scale for BG>140 3. 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 Monitoring - continue BG tid ac & hs Diet - low fat/low carb diet Exercise - weight-bearing exercise 30 min/day, as tolerated Thank you for allowing us to provide care for your patient Consult Note - Jeff Feliciano MD - 03/29/2014 2:40 PM EDT Inpatient Cardiology Consult Note Date of Consultation: 03/29/2014 Admit Date: 03/29/2014 Place of Service: Inpatient Unit Responsible Attending: Gi Feliciano MD Reason for Consult: We are seeing Hope Busby at the request of Dr. Venegas for the evaluation of intermittent tachycardia. I have reviewed the available records, interviewed and examined thepatient. Active Problem List: Active Hospital Problems Diagnosis ??? SVT (supraventricular tachycardia) ??? Diabetes mellitus ??? Atrial fibrillation Resolved Hospital Problems Diagnosis Date Resolved No resolved problems to display. History of Present Illness: Hope Busby is a 63 y.o. female admitted with tachycardia to 170bpm rate controlled with IV diltiazem. She has had many previous episodes of sudden onset tachycardia for which she has sought ED evaluation and these were often, if not always, an apparently adenosine responsive SVT. This episode was slightly different in that she initially felt fatigued and nauseous with a headache, then noted tachycardia. She attempted both vagal and CSM which did not terminate the rhythm. Diltiazem IV slowed the rhythm but did not break to sinus initially. She received additional IV metoprolol and broke sinus during [place] [facility] Since arrival she has remained in sinus rhythm and is now off IV diltiazem. Review of Systems Constitutional: Negative for fever, diaphoresis and fatigue. Respiratory: Negative for cough, choking, chest tightness, shortness of breath, wheezing and stridor. Cardiovascular: Positive for palpitations. Negative for chest pain and leg swelling. Gastrointestinal: Negative for nausea, vomiting, abdominal pain and diarrhea. Genitourinary: Negative for dysuria, frequency and hematuria. Neurological: Negative for dizziness, syncope, speech difficulty and light-headedness. PMH: Past Medical History Diagnosis Date ??? Hypertension ??? Diabetes mellitus ??? GERD (gastroesophageal reflux disease) ??? Rheumatoid arthritis ??? SVT (supraventricular tachycardia) ??? Melanoma in situ s/p removal Pertinent Medications: Current Facility-Administered Medications Ordered in [facility] Medication Dose Route Frequency Provider Last Rate Last Dose ??? aspirin EC tablet 81 mg 81 mg Oral Daily Hector Cox MD 81 mg at 03/29/14 0800 ??? ibuprofen (ADVIL;MOTRIN) tablet 800 mg 800 mg Oral Q8H PRN Hector Cox MD ??? lisinopril (PRINIVIL;ZESTRIL) tablet 5 mg 5 mg Oral Daily Hector Cox MD 5 mg at 03/29/14 0800 ??? metoprolol (LOPRESSOR) pre-split tablet 37.5 mg 37.5 mg Oral Q6H [facility] Hector Cox MD 37.5 mg at 03/29/14 1137 ??? esomeprazole (NexIUM) capsule 20 mg 20 mg Oral Daily Hector Cox MD 20 mg at 03/29/14 0800 ??? nitroGLYcerin (NITROSTAT) SL tablet 0.4 mg 0.4 mg Sublingual Q5 Min PRN Hector Cox MD ??? acetaminophen (TYLENOL) tablet 650 mg 650 mg Oral Q4H PRN Hector Cox MD ??? heparin (porcine) subcutaneous injection 5,000 Units 5,000 Units Subcutaneous Q8H [facility] Hector Cxo MD ??? [COMPLETED] magnesium sulfate 1g in dextrose 5% 100mL 1 g Intravenous Once Hector Cox MD 1 g at 03/29/14 0454 ??? atorvastatin (LIPITOR) tablet 10 mg 10 mg Oral QPM Hector Cox MD ??? heparin (porcine) injection 3,200-6,400 Units 3,200-6,400 Units Intravenous BOLUS HEPARIN PP Hector Cox MD 6,400 Units at 03/29/14 0649 ??? heparin 25,000 units in dextrose 5% 500 mL infusion 500-7,000 Units/hr Intravenous Continuous Hector Cox MD 28 mL/hr at 03/29/14 0650 1,400 Units/hr at 03/29/14 0650 ??? insulin glargine (LANTUS) VIAL injection 28 Units 28 Units Subcutaneous Nightly Hector Cox MD ??? dextrose 50% injection 25-50 mL 12.5-25 g Intravenous Q1H PRN Lana Suarez MD Or ??? glucagon (human recombinant) injection 1 mg 1 mg Intramuscular Q1H PRN Lana Suarez MD ??? insulin aspart (novoLOG) VIAL injection 3-12 Units 3-12 Units Subcutaneous Q4H Lana Ziegler MD 3 Units at 03/29/14 1028 ??? [COMPLETED] perflutren protein-A microspheres (OPTISON) 0.22 mg/mL injection 2.3 mL 2.3 mL Intravenous Once PRN José Manuel Jett MD 2.3 mL at 03/29/14 1139 ??? [DISCONTINUED] dextrose 50% injection 25-50 mL 12.5-25 g Intravenous Q1H PRN Hector Cox MD ??? [DISCONTINUED] glucagon (human recombinant) injection 1 mg 1 mg Intramuscular Q1H PRN Hector Cox MD ??? [DISCONTINUED] insulin aspart (novoLOG) VIAL injection 2-8 Units 2-8 Units Subcutaneous Q4H Hector Canada MD 8 Units at 03/29/14 0758 ??? [DISCONTINUED] simvastatin (ZOCOR) tablet 20 mg 20 mg Oral QPM Hector Cox MD ??? [DISCONTINUED] DILTiazem (CARDIZEM) 125 mg in D5W 125 mL infusion 5 mg/hr Intravenous ContinuousHector Cox MD 5 mg/hr at 03/29/14 0615 ??? [DISCONTINUED] insulin glargine (LANTUS) VIAL injection 20 Units 20 Units Subcutaneous Nightly Hector Cox MD No current Epic-ordered outpatient prescriptions on file. Family History: History reviewed. No pertinent family history. Social History: History Social History ??? Marital Status: Spouse Name: N/A Number of Children: N/A ??? Years of Education: N/A Occupational History ??? Not on file. Social History Main Topics ??? Smoking status: Former Smoker Types: Cigarettes Quit date: 06/22/1979 ??? Smokeless tobacco: Not on file Comment: per phone call 01/02/2011 ??? Alcohol Use: Yes Comment: 1 drink every 3-4 months ??? Drug Use: Yes Special: Marijuana Comment: Rare use when Arthritis acts up ??? Sexually Active: Not on file Other Topics Concern ??? Not on file Social History Narrative ??? No narrative on file Physical Exam: Vital signs: Last value Range last 8 hrs Temperature Temp: 36.6 ??C (97.9 ??F) Temp: [36.6 ??C (97.9 ??F)-36.9 ??C (98.4 ??F)] Heart Rate Heart Rate: 68 Heart Rate: [68-72] Blood Pressure BP: 132/62 mmHg BP: (131-132)/(62-76) Respiratory Rate Resp: 18 Resp: [18] SpO2 SpO2: 98 % SpO2: [97 %-98 %] Physical Exam Nursing note and vitals reviewed. Constitutional: She is oriented to person, place, and time. No distress. Neck: No JVD present. Cardiovascular: Normal rate, regular rhythm, normal heart sounds and intact distal pulses. Pulmonary/Chest: Effort normal and breath sounds normal. Abdominal: Soft. There is no tenderness. Musculoskeletal: Normal range of motion. She exhibits no edema. Neurological: She is alert and oriented to person, place, and time. Skin: Skin is warm and dry. She is not diaphoretic. Labs: Lab Results Component Value Date WBC 8.7 03/29/2014 HGB 12.8 03/29/2014 HCT 39.4 03/29/2014 PLATELET 407* 03/29/2014 Recent Labs Basename 03/29/14 0319 INR 0.9 Lab Results Component Value Date NA 138 03/29/2014 K 4.8 03/29/2014 CL 103 03/29/2014 BUN 23* 03/29/2014 CREATININE 0.74 03/29/2014 MAGNESIUM 0.66* 03/29/2014 Pertinent Radiographic/Diagnostic Results: Echocardiogram: 03/29/2014 1. The left ventricular chamber size is [...] There is no hemodynamically significant valve disease. 12 lead EK03/29/2014 67 BPM Preliminary Atrial Rate 67 BPM Preliminary P-R Interval 200 ms Preliminary QRS Duration 70 msPreliminary Q-T Interval 416 ms Preliminary QTC Calculated (Bezet) 439 CXR: 03/29/2014 Lungs clear, no acute findings Assessment: Hope Busby is a 63 y.o. female admitted with symptomatic atrial fibrillation with RVR. By history she has also had a recurrent, adenosine responsive SVT since childhood that was quiescent for many years until about five years ago and then became more frequent. As she now has evidence of symptomatic atrial fibrillation with elevated [id number] score of 4(age, sex, HTN, DM) she should be formally anticoagulated and be started on regularly dosed rate control medication(beta alicia intially). Severely dilated LA is suggestive of increased likelihood of recurrent atrial arrythmia. Recommendation: Agree with beta alicia - would trial 25mg PO q6 metoprolol tartrate while hospitalized and preferably discharge on long acting metoprolol succinate 100mg QD if tolerated. Coumadin or NOAC for anticoagulation. Bridge is not required as she is currently in sinus rhythm. If SVT is recurrent on rate control medication, can review for feasibility for ablation. I do not currently have EKGs or telemetry data that demonstrates ablatable flutter or AVNRT/ORT. Outpatient monitoring(e.g. Zio) may be useful as would be OSH records related to previous ED visits([facility]; she also indicates she has been evaluated by Dr. Hammond several years ago). Consult service will continue to follow patient. Provider: KATHLEEN Beard Provider#: [id number] Consult attending physician: Gi Feliciano MD Addendum I have personally interviewed and examined the patient and reviewed the available records 63 y.o. woman with DM, HTN, obesity, admitted with symptomatic rapid heart rhythm. Her history is consistent with a nodally dependent re-entry rhythm ; her ecg from [facility] appears to be coarse atrial fibrillation. We had a nice discussion about possible treatment approaches including medical management (eg metoprolol, diltiazem), and invasive procedures (ablation). Her preference at present is for more conservative management and this seems reasonable. She understands that if there were frequent recurrences on medical management, my inclination would be to proceed to the EP lab for ablation of SVT (which mighthave an impact in atrial fibrillation as well) I would note that she has a markedly enlarged left atrium and probably has sleep apnea on the basis of her symptoms She indicates that would like to go home tomorrow. Recs: as above - could transition to oral anticoagulation, treat with beta alicia or calcium channel alicia as tolerated. Outpatient ambulatory monitor to evaluate for symptomatic and asymptomatic arrhythmias Overnight sleep oximetry for sleep apnea might be reasonable to do while here Can follow up in EP clinic in about 6-8 weeks JEFF FELICIANO MD Melissacellaneous - Provider, Scanning - 03/29/2014 6:01 AM EDT Alex - Provider, Scanning - 03/29/2014 6:00 AM EDT documented in this encounter Plan of Treatment Not on filedocumented as of this encounter Procedures Procedure Name Priority Date/Time Associated Diagnosis Comme nts ECG SCAN 03/31/2014 2:06 Results for this PM EDT procedure are i n the results section. MOCCASIN SEWER SCAN 03/31/2014 12:51 Res ults for this PM EDT procedure are i n the results section. POCT GLUCOSE Routine 03/30/2014 2:22 Results for this PM EDT procedure are i n the results section. POCT GLUCOSE Routine 03/30/2014 11:58 Results for this AM EDT procedure are i n the results section. POCT GLUCOSE Routine 03/30/2014 7:32 Results for this AM EDT procedure are i n the results section. HEMOGRAM Routine 03/30/2014 7:14 Results for this AM EDT procedure are i n the results section. DIFFERENTIAL, Routine 03/30/2014 7:14 Results for this AUTOMATED AM EDT procedure are i n the results section. APTT STAT 03/30/2014 7:14 Results for this AM EDT procedure are i n the results section. CBC (WITH DIFF) Routine 03/30/2014 7:14 AM EDT PHOSPHORUS Routine 03/30/2014 7:14 Results for this AM EDT procedure are i n the results section. MAGNESIUM Routine 03/30/2014 7:14 Results for this AM EDT procedure are i n the results section. BASIC METABOLIC PANEL Routine 03/30/2014 7:14 Res ults for this (NON-FASTING) AM EDT procedure are in the results section. EKG 12-LEAD Routine 03/30/2014 6:40 SVT Results for this AM EDT (supraventricular procedure are in tachycardia) the results section. POCT GLUCOSE Routine 03/30/2014 3:47 Results for this AM EDT procedure are i n the results section. POCT GLUCOSE Routine 03/30/2014 12:08 Results for this AM EDT procedure are i n the results section. APTT Routine 03/29/2014 10:18 Results for this PM EDT procedure are i n the results section. POCT GLUCOSE Routine 03/29/2014 9:56 Results for this PM EDT procedure are i n the results section. POCT GLUCOSE Routine 03/29/2014 8:08 Results for this PM EDT procedure are i n the results section. POCT GLUCOSE Routine 03/29/2014 4:15 Results for this PM EDT procedure are i n the results section. APTT STAT 03/29/2014 3:56 Results for this PM EDT procedure are i n the results section. EKG 12-LEAD Routine 03/29/2014 1:03 Atrial fibrillation Resul ts for this PM EDT procedure are i n the results section. POCT GLUCOSE Routine 03/29/2014 12:19 Results for this PM EDT procedure are i n the results section. ECHOCARDIOGRAM Routine 03/29/2014 11:38 Atrial fibrillation Re sults for this TRANSTHORACIC(LEB) AM EDT procedure are in the results section. POCT GLUCOSE Routine 03/29/2014 10:25 Results for this AM EDT procedure are i n the results section. EKG 12-LEAD Routine 03/29/2014 10:21 Atrial fibrillation Resu lts for this AM EDT procedure are i n the results section. POCT GLUCOSE Routine 03/29/2014 7:56 Results for this AM EDT procedure are i n the results section. XR CHEST PA AND Routine 03/29/2014 6:49 Results f or this LATERAL AM EDT procedure are i n the results section. POCT GLUCOSE Routine 03/29/2014 6:22 Results for this AM EDT procedure are i n the results section. EKG 12-LEAD STAT 03/29/2014 4:36 Atrial fibrillation Resul ts for this AM EDT procedure are i n the results section. BMP W/FASTING GLUCOSE STAT 03/29/2014 3:19 Res ults for this AM EDT procedure are i n the results section. HEMOGRAM STAT 03/29/2014 3:19 Results for this AM EDT procedure are i n the results section. DIFFERENTIAL, STAT 03/29/2014 3:19 Results for this AUTOMATED AM EDT procedure are i n the results section. CARDIAC ENZYMES STAT 03/29/2014 3:19 Results f or this ([facility]) AM EDT procedure are i n the results section. APTT STAT 03/29/2014 3:19 Results for this AM EDT procedure are i n the results section. PROTHROMBIN TIME STAT 03/29/2014 3:19 Results for this AM EDT procedure are i n the results section. CBC (WITH DIFF) STAT 03/29/2014 3:19 AM EDT TSH STAT 03/29/2014 3:19 Results for this AM EDT procedure are i n the results section. PHOSPHORUS STAT 03/29/2014 3:19 Results for this AM EDT procedure are i n the results section. MAGNESIUM STAT 03/29/2014 3:19 Results for this AM EDT procedure are i n the results section. HEMOGLOBIN A1C STAT 03/29/2014 3:19 Results fo r this AM EDT procedure are i n the results section. HEPATIC FUNCTION PANEL STAT 03/29/2014 3:19 Re sults for this AM EDT procedure are i n the results section. LIPID PANEL (REFLEX STAT 03/29/2014 3:19 Resul ts for this DIRECT LDL) AM EDT procedure are i n the results section. POCT GLUCOSE Routine 03/29/2014 3:06 Results for this AM EDT procedure are i n the results section. documented in this encounter Results SCAN DOC: ECG (03/31/2014 2:06 PM EDT) Narrative 03/31/2014 2:08 PM EDT Procedure Note Provider, Scanning - 03/31/2014 2:06 PM EDT Scanning Provider MEDIA MGR SCAN EXT ORDR/RSLT SCAN DOC: MOCCASIN SEWER (03/31/2014 12:51 PM EDT) Narrative 03/31/2014 1:07 PM EDT Procedure Note Provider, Scanning - 03/31/2014 12:51 PM EDT Scanning Provider MEDIA MGR SCAN EXT ORDR/RSLT (ABNORMAL) POCT Glucose (03/30/2014 2:22 PM EDT) P athologist Signature POC Glucose 291 (H) 60 - 199 CERNER mg/dL [facility] Comment: Supplemental ranges: <140 mg/dL before meals <180 mg/dL all other times of the day Specimen Anatomical Collection Method Collection Time Receive d Time (Source) Location / / Volume Laterality Blood specimen 03/30/2014 2:22 PM 014 2:22 (specimen) EDT PM EDT Cathie Venegas MD POINT OF CARE TEST ORDERABLE S Performing Organization Address City/State/[place] [address] CERNER MILLENNIUM (ABNORMAL) POCT Glucose (03/30/2014 11:58 AM EDT) athologist Signature POC Glucose 266 (H) 60 - 199 CERNER mg/dL MILLENNIUM Comment: Supplemental ranges: <140 mg/dL before meals <180 mg/dL all other times of the day Specimen Anatomical Collection Method Collection Time Receive d Time (Source) Location / / Volume Laterality Blood specimen 03/30/2014 11:58 4 (specimen) AM EDT 11:58 AM EDT Cathie Venegas MD POINT OF CARE TEST ORDERABLE S Performing Organization Address City/[facility]/ZIP Code Phon e Number [address] CERNER MILLENNIUM (ABNORMAL) POCT Glucose (03/30/2014 7:32 AM EDT) athologist Signature POC Glucose 239 (H) 60 - 199 CERNER mg/dL MILLENNIUM Comment: Supplemental ranges: <140 mg/dL before meals <180 mg/dL all other times of the day Specimen Anatomical Collection Method Collection Time Receive d Time (Source) Location / / Volume Laterality Blood specimen 03/30/2014 7:32 AM 014 7:32 (specimen) EDT AM EDT Cathie Venegas MD POINT OF CARE TEST ORDERABLE S Performing Organization Address City/State/[place] [address] CERNER MILLENNIUM Differential, Automated (03/30/2014 7:14 AM EDT) athologist Signature Neutrophils % 52.8 % CERNER MILLENNIUM Neutr Abs (ANC) 4.82 1.50 - CERNER 6.30 MILLENNIUM x10(3)/mcL Lymphocytes % 32.1 % CERNER MILLENNIUM Lymphocytes Abs 2.9 1.0 - 3.6 CERNER x10(3)/mcL MILLENNIUM Monocytes % 9.7 % CERNER MILLENNIUM Monocyte Abs 0.9 0.2 - 1.0 CERNER x10(3)/mcL MILLENNIUM Eosinophils % 4.9 % CERNER MILLENNIUM Eosinophils Abs 0.4 0.0 - 0.5 CERNER x10(3)/mcL MILLENNIUM Basophils % 0.3 % CERNER MILLENNIUM Basophils Abs 0.0 0.0 - 0.2 CERNER x10(3)/mcL MILLENNIUM Immature Gran % 0.20 % CERNER MILLENNIUM Comment: Immature granulocytes(IG's)percentage an d absolute [...] Location / / Volume Laterality Blood specimen 03/30/2014 7:14 AM 014 7:25 (specimen) EDT AM EDT Resulting Agency Comment Spec In Lab Cathie Venegas MD HEMATOLOGY ORDERABLES Performing Organization Address City/State/ZIP Code Phon e Number [place] [phone] CERNER MILLENNIUM (ABNORMAL) Hemogram (03/30/2014 7:14 AM EDT) P athologist Signature WBC 9.1 4.0 - 10.0 CERNER x10(3)/mcL MILLENNIUM RBC 4.50 3.93 - 5.22 CERNER x10(6)/mcL MILLENNIUM Hemoglobin 13.1 11.2 - 15.7 CERNER gm/dL MILLENNIUM Hematocrit 40.2 34.0 - 45.0 CERNER % MILLENNIUM MCV 89.3 79.0 - 94.0 CERNER fL MILLENNIUM MCH 29.1 26.6 - 32.2 CERNER pg MILLENNIUM MCHC 32.6 32.0 - 36.5 CERNER gm/dL MILLENNIUM Platelets 386 (H) 145 - 370 CERNER x10(3)/mcL MILLENNIUM RDWSD 42.0 35.0 - 46.0 CERNER fL MILLENNIUM RDWCV 13.0 10.9 - 14.4 CERNER % MILLENNIUM MPV 10.4 9.0 - 12.0 [facility] Specimen Anatomical Collection Method Collection Time Receive d Time (Source) Location / / Volume Laterality Blood specimen 03/30/2014 7:14 AM 014 7:25 (specimen) EDT AM EDT Resulting Agency Comment Spec In Lab Cathie Venegas MD HEMATOLOGY ORDERABLES Performing Organization Address City/State/ZIP Code Phon e Number [address] CERNER MILLENNIUM (ABNORMAL) APTT (03/30/2014 7:14 AM EDT) P athologist Signature PTT 61 (H) 25 - 35 sec CERNER MILLENNIUM Comment: Recommended therapeutic PTT range for fu ll dose unfractionated heparin is 80-114 seconds. Specimen Anatomical Collection Method Collection Time Receive d Time (Source) Location / / Volume Laterality Blood specimen 03/30/2014 7:14 AM 014 7:25 (specimen) EDT AM EDT Resulting Agency Comment Spec In Lab Cathie Venegas MD HEMATOLOGY ORDERABLES Performing Organization Address City/[facility]/ZIP Code Phon e Number [address] [facility] MILLENNIUM Phosphorus (03/30/2014 7:14 AM EDT) P athologist Signature Phosphorus 3.5 2.5 - 4.5 CERNER mg/dL [facility] Specimen Anatomical Collection Method Collection Time Receive d Time (Source) Location / / Volume Laterality Blood specimen 03/30/2014 7:14 AM 014 7:25 (specimen) EDT AM EDT Resulting Agency Comment Spec In Lab Cathie Venegas MD CHEMISTRY ORDERABLES Performing Organization Address City/[facility]/ZIP Code Phon e Number [address] CERNER MILLENNIUM Magnesium (03/30/2014 7:14 AM EDT) P athologist Signature Magnesium 0.74 0.69 - 1.07 CERNER mmol/L MILLENNIUM Specimen Anatomical Collection Method Collection Time Receive d Time (Source) Location / / Volume Laterality Blood specimen 03/30/2014 7:14 AM 014 7:25 (specimen) EDT AM EDT Resulting Agency Comment Spec In Lab Cathie Venegas MD CHEMISTRY ORDERABLES Performing Organization Address City/State/ZIP Code Phon e Number [place] [phone] CERNER MILLENNIUM (ABNORMAL) Basic Metabolic Panel (non-fasting) (03/30/2014 7:14 AM EDT) athologist Signature Glucose Lvl 231 (H) 60 - 199 CERNER mg/dL MILLENNIUM Comment: Diabetes: >=200 mg/dL plus symp toms BUN 15 8 - 18 mg/dL CERNER MILLENNIUM Creatinine 0.62 (L) 0.70 - 1.20 mg/dL CERNER MILL ENNIUM Comment: Please note that the pediatric reference intervals supplied above were not validated at [facility]. Results from pediatri c patients should be interpreted in conjunction to the patient's age, height and muscle mass. Sodium 140 135 - 145 mmol/L CERNER LUIS ANTONIO NIUM Potassium 4.1 3.5 - 5.0 mmol/L CERNER LUIS ANTONIO NIUM Comment: Please note: ??Patients with WBC >100,00 0 may have falsely elevated Potassium levels. ??For accurate Potassium quantif ication in these patients send serum separator tube (gold top) for subsequent determinations. ??Contact the Clinical Chemistry Laboratory if there are any qu estions. Chloride 103 98 - 107 mmol/L CERNER MILLENN IUM CO2 23 22 - 31 mmol/L CERNER MILLENNI UM Anion Gap 14 5 - 15 mmol/L CERNER MILLENNIU M Calcium 9.1 8.5 - 10.5 mg/dL CERNER LUIS ANTONIO NIUM Estimated GFR >60 >=60 CERNER MILLENNIU M Comment: This estimated GFR (eGFR) value was calc ulated using the MDRD equation which has been validated on patients between t he ages of 18 and 70. The MDRD should not be used to assess kidney function in patients < 18 years of age or in patients with extremes of body mass, or in patients with acute kidney failure. This value should be multiplied by 1.2 f or patients. For further information please copy and past e the following links into your internet browser. [email or web address] [email or web address] Specimen Anatomical Collection Method Collection Time Receive d Time (Source) Location / / Volume Laterality Blood specimen 03/30/2014 7:14 AM 014 7:25 (specimen) EDT AM EDT Resulting Agency Comment Spec In Lab Cathie Venegas MD CHEMISTRY ORDERABLES Performing Organization Address City/[facility]/ZIP Code Phon e Number [address] CERNER MILLENNIUM EKG 12 Lead (03/30/2014 6:40 AM EDT) Component Value Ref Range Test Analysis Performed Pathologis t Method Time At Signature Ventricular rate 63 BPM MUSE SYSTEM Atrial Rate 63 BPM MUSE SYSTEM P-R Interval 200 ms MUSE SYSTEM QRS Duration 74 ms MUSE SYSTEM Q-T Interval 420 ms MUSE SYSTEM QTC Calculated 429 ms MUSE SYSTEM (Bezet) Calculated P [place] 32 degrees MUSE SYSTEM Calculated R [place] 11 degrees MUSE SYSTEM Calculated T [place] 30 degrees MUSE SYSTEM INTERPRETATION Normal sinus rhythm MUSE SYSTEM Low voltage QRS Borderline ECG When compared with ECG of 29-MAR-2014 13:03, No significant change was found Confirmed by MD CARLOS, NIC ([id number]) on 03/31/2014 5:37:35 AM Specimen Anatomical Collection Method Collection Time Receive d Time (Source) Location / / Volume Laterality 03/30/2014 6:40 AM 4 5:37 EDT AM EDT Cathie Venegas MD ECG ORDERABLES Performing Organization Address City/[facility]/ZIP Code Phon e Number MUSE SYSTEM POCT Glucose (03/30/2014 3:47 AM EDT) P athologist Signature POC Glucose 154 60 - 199 CERNER mg/dL Screen Fix [place] Comment: Supplemental ranges: <140 mg/dL before meals <180 mg/dL all other times of the day Specimen Anatomical Collection Method Collection Time Receive d Time (Source) Location / / Volume Laterality Blood specimen 03/30/2014 3:47 AM 014 3:47 (specimen) EDT AM EDT Cathie Venegas MD POINT OF CARE TEST ORDERABLE S Performing Organization Address City/State/[place] [address] CERNER MILLENNIUM POCT Glucose (03/30/2014 12:08 AM EDT) P athologist Signature POC Glucose 194 60 - 199 CERNER mg/dL [facility] Comment: Supplemental ranges: <140 mg/dL before meals <180 mg/dL all other times of the day Specimen Anatomical Collection Method Collection Time Receive d Time (Source) Location / / Volume Laterality Blood specimen 03/30/2014 12:08 4 (specimen) AM EDT 12:08 AM EDT Cathie Venegas MD POINT OF CARE TEST ORDERABLE S Performing Organization Address City/[facility]/ZIP Code Phon e Number [address] CERNER MILLENNIUM (ABNORMAL) APTT (03/29/2014 10:18 PM EDT) P athologist Signature PTT >160 25 - 35 CERNER (Critical) sec ENNIUM Comment: Called by: AUTUMN, Read back by: TOMAS BRYANT ROOM, Date/Time:03/29/14 23:36. Recommended therapeutic PTT range for fu ll dose unfractionated heparin is 80-114 seconds. Specimen Anatomical Collection Method Collection Time Receive d Time (Source) Location / / Volume Laterality Blood specimen 03/29/2014 10:18 4 (specimen) PM EDT 11:02 PM EDT Resulting Agency Comment Spec In Lab Cathie Venegas MD HEMATOLOGY ORDERABLES Performing Organization Address City/[facility]/ZIP Code Phon e Number [address] CERNER MILLENNIUM (ABNORMAL) POCT Glucose (03/29/2014 9:56 PM EDT) P athologist Signature POC Glucose 275 (H) 60 - 199 CERNER mg/dL [facility] Comment: Supplemental ranges: <140 mg/dL before meals <180 mg/dL all other times of the day Specimen Anatomical Collection Method Collection Time Receive d Time (Source) Location / / Volume Laterality Blood specimen 03/29/2014 9:56 PM 014 9:56 (specimen) EDT PM EDT aCthie Venegas MD POINT OF CARE TEST ORDERABLE S Performing Organization Address City/State/[place] [address] CERNER MILLENNIUM (ABNORMAL) POCT Glucose (03/29/2014 8:08 PM EDT) P athologist Signature POC Glucose 297 (H) 60 - 199 CERNER mg/dL MILLENNIUM Comment: Supplemental ranges: <140 mg/dL before meals <180 mg/dL all other times of the day Specimen Anatomical Collection Method Collection Time Receive d Time (Source) Location / / Volume Laterality Blood specimen 03/29/2014 8:08 PM 014 8:08 (specimen) EDT PM EDT Cathie Venegas MD POINT OF CARE TEST ORDERABLE S Performing Organization Address City/[facility]/[place] [address] CERNER MILLENNIUM (ABNORMAL) POCT Glucose (03/29/2014 4:15 PM EDT) P athologist Signature POC Glucose 273 (H) 60 - 199 CERNER mg/dL MILLENNIUM Comment: Supplemental ranges: <140 mg/dL before meals <180 mg/dL all other times of the day Specimen Anatomical Collection Method Collection Time Receive d Time (Source) Location / / Volume Laterality Blood specimen 03/29/2014 4:15 PM 014 4:15 (specimen) EDT PM EDT Cathie Venegas MD POINT OF CARE TEST ORDERABLE S Performing Organization Address City/State/[place] [address] CERNER MILLENNIUM (ABNORMAL) APTT (03/29/2014 3:56 PM EDT) P athologist Signature PTT 81 (H) 25 - 35 sec CERNER MILLENNIUM Comment: Recommended therapeutic PTT range for fu ll dose unfractionated heparin is 80-114 seconds. Specimen Anatomical Collection Method Collection Time Receive d Time (Source) Location / / Volume Laterality Blood specimen 03/29/2014 3:56 PM 014 4:31 (specimen) EDT PM EDT Resulting Agency Comment Spec In Lab Cathie Venegas MD HEMATOLOGY ORDERABLES Performing Organization Address City/[facility]/[place] [address] CERNER MILLENNIUM EKG 12 Lead (03/29/2014 1:03 PM EDT) Component Value Ref Range Test Analysis Performed Pathologis t Method Time At Signature Ventricular rate 67 BPM MUSE SYSTEM Atrial Rate 67 BPM MUSE SYSTEM P-R Interval 200 ms MUSE SYSTEM QRS Duration 70 ms MUSE SYSTEM Q-T Interval 416 ms MUSE SYSTEM QTC Calculated 439 ms MUSE SYSTEM (Bezet) Calculated P [place] 26 degrees MUSE SYSTEM Calculated R [place] 15 degrees MUSE SYSTEM Calculated T [place] 21 degrees MUSE SYSTEM INTERPRETATION Normal sinus rhythm MUSE SYSTEM Normal ECG When compared with ECG of 29-MAR-2014 10:21, (unconfirmed) No significant change was found Confirmed by MD CARLOS, NIC ([id number]) on 03/29/2014 9:16:12 PM Specimen Anatomical Collection Method Collection Time Receive d Time (Source) Location / / Volume Laterality 03/29/2014 1:03 PM 4 9:16 EDT PM EDT Cathie Venegas MD ECG ORDERABLES Performing Organization Address [facility]/ZIP Code Phon e Number MUSE SYSTEM POCT Glucose (03/29/2014 12:19 PM EDT) P athologist Signature POC Glucose 66 60 - 199 CERNER mg/dL [facility] Comment: Supplemental ranges: <140 mg/dL before meals <180 mg/dL all other times of the day Specimen Anatomical Collection Method Collection Time Receive d Time (Source) Location / / Volume Laterality Blood specimen 03/29/2014 12:19 4 (specimen) PM EDT 12:19 PM EDT Cathie Venegas MD POINT OF CARE TEST ORDERABLE S Performing Organization Address City/[facility]/[place] [address] [facility] Echocardiogram Transthoracic(Leb) (03/29/2014 11:38 AM EDT) athologist Signature EF 74 HEARTLAB SYSTEM Specimen (Source) Anatomical Location Collection Method / Collectio n Time Received Time / Laterality Volume 03/29/2014 Narrative HEARTLAB SYSTEM - 03/29/2014 11:53 AM ED T Procedure: ? Transthoracic Echocardiogram Patient: ? ANKIA Calix ?(Age): 1950(63) Med Rec#: ?[id number] ? Sex: ?F ? [place] [place] Ht / Wt: ??170(cm)/94(kg) Pt. Loc: ? Adult Floor ?BSA: ?2.11 Study Date: ?03/29/2014 ? Pt. Type: Inpatient Tape: ? Referring: Cathie Venegas ?? Referring: CELINA DE LEON A Lap Cutter: Mariama Spicer Diagnosis:CPT Code(s): ??Echo Full (9330 7), ??Spectral Doppler (57103), Color Doppler (49577), ??Optison ([id number]), Indication(s): ??Atrial fibrillation Rhythm: HR ?BP ?131/76 ?? SUMMARY: 1. The left ventricular chamber size is normal. There is mild septal hypertrophy of the left ventricle. ??The re are no left ventricular segmental wall motion abnormalities. The re is normal global left ventricular systolic function. The quant itative left ventricular ejection fraction by biplane Parry's m ethod is 74%. Doppler assessment is consistent with elevated left sided f illing pressure. 2. Right ventricular chamber size, wall thickness, and systolic function are within normal limits. 3. The left atrium is severely dilated ( 44 ml/m2) The right atrium is normal in size. 4. There is no hemodynamically significa nt valve disease. 5. See remainder of report for additiona l findings. FINDINGS: Study Quality ?Technically limited Left Ventricle ?The left ventricular chamber size is normal. ?There is mild septal hypertrophy o f the left ventricle. ?No ventricular septal defect is vi sualized. ?There is normal global left ventri cular systolic function. ?The quantitative left ventricular ejection fraction by biplane Parry's method is 74%. ?There are no left ventricular segm ental wall motion abnormalities. ?Doppler assessment is consistent w ith elevated left sided filling pressure. Left Atrium ?The left atrium is severely dilate d.(44 ml/m2) ?No atrial septal defect is visuali zed. Right Ventricle ?Right ventricular chamber size, wa ll thickness, and systolic function are within normal limits. Right Atrium ?The right atrium is normal in size . Aortic Valve ?The aortic valve is tricuspid. ?The aortic valve leaflets are mild ly thickened. ?Systolic excursion of the aortic v alve is normal. ?There is no evidence of aortic domingo ve stenosis. ?There is a trace of aortic regurgi tation present. Mitral Valve ?The mitral valve appears normal in structure and function. ?There is no evidence of mitral domingo ve leaflet prolapse. ?There is trace mitral regurgitatio n present. Tricuspid Valve ?The tricuspid valve appears normal in structure and function. ?There is trace tricuspid regurgita tion present. Pulmonic Valve ?The pulmonic valve appears normal in structure and function. Pericardium ?The pericardium appears normal and there is no evidence of a pericardial effusion. Aorta ?The aortic root is normal in size. ?The ascending aorta is normal in s ize. ?There is no evidence of coarctatio n of the aorta. Pulmonary Artery ?The main pulmonary artery appears normal. Venous ?The inferior vena cava appears nor mal in size. ?There is a greater than 50% respir atory change in the inferior vena cava dimension. Misc ?Two-dimensional echo, spectral Dop pler and color Doppler performed. ?Optison contrast (one 3 ml vial) w as used to enhance endocardial definition. Excess contrast was discarde d. Wall Motion: Segment Name ?Rest ? Base-Anteroseptal ?? Normal ? Base-Anterior ? Normal ? Base-Anterolateral ??Normal ? Base-Posterolateral Normal ? Base-Inferior ? Normal ? Base-Inferoseptal ?? Normal ? Mid-Anteroseptal ?Normal ? Mid-Anterior ?Normal ? Mid-Anterolateral ?? Normal ? Mid-Posterolateral ??Normal ? Mid-Inferior ?Normal ? Mid-Inferoseptal ?Normal ? Dolores-Septal ? Normal ? Dolores-Anterior ? Normal ? Dolores-Lateral ?Normal ? Dolores-Inferior ? Normal ? Dolores-Tip ?Normal ? Chambers ?Value ?Units (Range) ? EF ??Bi-p Simp ? 74 ? % (55 to 80) ? IVSd 2D ? 1.4 ?cm ? LVIDd 2D ?3.7 ?cm ? PWd 2D ?1.1 ?cm ? LVIDs 2D ?2.6 ?cm ? LVFS 2D ? 31 ? % ? LA area ? 25 ? cm2 (<21) ? RA area ? 13.8 ? cm2 (<18) ? Ao root ? 3.2 ?cm (2.1 to 3.6) ? Asc Ao ?3.2 ?cm (2 to 3.5) ? Mitral Valve ?Value ?Units (Range) ? E peak ?0.85 ? m/sec ? E/A ratio ? 0.8 ?ratio ? MVDT ?187 ?msec ? E1 ?0.05 ? m/sec ? E/E1 ?17 ? ratio ? Tricuspid/Pulmonic Valves ?Value ?Units (Range) ? RAP ? 3 ?mmHg ? This report has been electronically sign ed by: _ Sunil Barriga MD ? 03/29/2014 11 :53:09 Images reviewed and interpretation verif ied [facility] Cardiac Ultrasound Laboratory Procedure Note Sunil Barriga MD - 03/29/2014Formatt ing of this note might be different from the original. Procedure: Transthoracic Echocardiogram Patient: NAKIA SOLOMON(Age): (63) Med Rec#: [id number] Sex: F [place] [facility] [place]t / Wt: 170(cm)/94(kg) Pt. Loc: Adult Floor BSA: 2.11 Study Date: 03/29/2014 Pt. Type: Inpatie nt Tape: Referring: Cathie Venegas Referring: CELINA DE LEON A Lap Cutter: Mariama Spicer Diagnosis:CPT Code(s): Echo Full (37487) , Spectral Doppler (52718), Color Doppler (15739), Optison ([id number]) , Indication(s): Atrial fibrillation Rhythm: HR BP 131/76 SUMMARY: 1. The left ventricular chamber size is normal. There is mild septal hypertrophy of the left ventricle. There are no left ventricular segmental wall motion abnormalities. The re is normal global left ventricular systolic function. The quant itative left ventricular ejection fraction by biplane Parry's m ethod is 74%. Doppler assessment is consistent with elevated left sided f illing pressure. 2. Right ventricular chamber size, wall thickness, and systolic function are within normal limits. 3. The left atrium is severely dilated ( 44 ml/m2) The right atrium is normal in size. 4. There is no hemodynamically significa nt valve disease. 5. See remainder of report for additiona l findings. FINDINGS: Study Quality Technically limited Left Ventricle The left ventricular chamber size is no rmal. There is mild septal hypertrophy of the left ventricle. No ventricular septal defect is visuali zed. There is normal global left ventricular systolic function. The quantitative left ventricular eject ion fraction by biplane Parry's method is 74%. There are no left ventricular segmental wall motion abnormalities. Doppler assessment is consistent with e levated left sided filling pressure. Left Atrium The left atrium is severely dilated.(44 ml/m2) No atrial septal defect is visualized. Right Ventricle Right ventricular chamber size, wall th ickness, and systolic function are within normal limits. Right Atrium The right atrium is normal in size. Aortic Valve The aortic valve is tricuspid. The aortic valve leaflets are mildly th ickened. Systolic excursion of the aortic valve is normal. There is no evidence of aortic valve st enosis. There is a trace of aortic regurgitatio n present. Mitral Valve The mitral valve appears normal in stru cture and function. There is no evidence of mitral valve le aflet prolapse. There is trace mitral regurgitation pre sent. Tricuspid Valve The tricuspid valve appears normal in s tructure and function. There is trace tricuspid regurgitation present. Pulmonic Valve The pulmonic valve appears normal in st ructure and function. Pericardium The pericardium appears normal and ther e is no evidence of a pericardial effusion. Aorta The aortic root is normal in size. The ascending aorta is normal in size. There is no evidence of coarctation of the aorta. Pulmonary Artery The main pulmonary artery appears man l. Venous The inferior vena cava appears normal i n size. There is a greater than 50% respiratory change in the inferior vena cava dimension. Misc Two-dimensional echo, spectral Doppler and color Doppler performed. Optison contrast (one 3 ml vial) was us ed to enhance endocardial definition. Excess contrast was discarde d. Wall Motion: Segment Name Rest Base-Anteroseptal Normal Base-Anterior Normal Base-Anterolateral Normal Base-Posterolateral Normal Base-Inferior Normal Base-Inferoseptal Normal Mid-Anteroseptal Normal Mid-Anterior Normal Mid-Anterolateral Normal Mid-Posterolateral Normal Mid-Inferior Normal Mid-Inferoseptal Normal Dolores-Septal Normal Dolores-Anterior Normal Dolores-Lateral Normal Dolores-Inferior Normal Dolores-Tip Normal Chambers Value Units (Range) EF Bi-p Simp 74 % (55 to 80) IVSd 2D 1.4 cm LVIDd 2D 3.7 cm PWd 2D 1.1 cm LVIDs 2D 2.6 cm LVFS 2D 31 % LA area 25 cm2 (<21) RA area 13.8 cm2 (<18) Ao root 3.2 cm (2.1 to 3.6) Asc Ao 3.2 cm (2 to 3.5) Mitral Valve Value Units (Range) E peak 0.85 m/sec E/A ratio 0.8 ratio MVDT 187 msec E1 0.05 m/sec E/E1 17 ratio Tricuspid/Pulmonic Valves Value Units (Range) RAP 3 mmHg This report has been electronically sign ed by: _ Sunil Barriga MD 03/29/2014 11:53:09 Images reviewed and interpretation verif ied [facility] Cardiac Ultrasound Laboratory Cathie Venegas MD ECHO ORDERABLES Performing Organization Address City/State/ZIP Code Phon e Number HEARTLAB SYSTEM POCT Glucose (03/29/2014 10:25 AM EDT) athologist Signature POC Glucose 159 60 - 199 CERNER mg/dL [facility] Comment: Supplemental ranges: <140 mg/dL before meals <180 mg/dL all other times of the day Specimen Anatomical Collection Method Collection Time Receive d Time (Source) Location / / Volume Laterality Blood specimen 03/29/2014 10:25 4 (specimen) AM EDT 10:25 AM EDT Cathie Venegas MD POINT OF CARE TEST ORDERABLE S Performing Organization Address City/State/[place] [address] CERNER MILLENNIUM EKG 12 Lead (03/29/2014 10:21 AM EDT) [facility] gist Method Time Signature Ventricular rate 69 BPM MUSE SYSTEM Atrial Rate 69 BPM MUSE SYSTEM P-R Interval 176 ms MUSE SYSTEM QRS Duration 74 ms MUSE SYSTEM Q-T Interval 410 ms MUSE SYSTEM QTC Calculated 439 ms MUSE SYSTEM (Bezet) Calculated P [place] 8 degrees MUSE SYSTEM Calculated R [place] 20 degrees MUSE SYSTEM Calculated T [place] 26 degrees MUSE SYSTEM INTERPRETATION Normal sinus rhythm MUSE SYSTEM Normal ECG When compared with ECG of 29-MAR-2014 04:36, Premature atrial complexes are no longer Present Confirmed by MD ANAYELI, USHA ([id number]) on 03/29/2014 2:33:09 PM Specimen Anatomical Collection Method Collection Time Receive d Time (Source) Location / / Volume Laterality 03/29/2014 10:21 03/29/2014 2:33 AM EDT PM EDT Cathie Venegas MD ECG ORDERABLES Performing Organization Address City/State/ZIP Code Phon e Number MUSE SYSTEM (ABNORMAL) POCT Glucose (03/29/2014 7:56 AM EDT) P athologist Signature POC Glucose 345 (H) 60 - 199 CERNER mg/dL [facility] Comment: Supplemental ranges: <140 mg/dL before meals <180 mg/dL all other times of the day Specimen Anatomical Collection Method Collection Time Receive d Time (Source) Location / / Volume Laterality Blood specimen 03/29/2014 7:56 AM 014 7:56 (specimen) EDT AM EDT Cathie Venegas MD POINT OF CARE TEST ORDERABLE S Performing Organization Address City/State/[place] [address] CERNER MILLENNIUM XR chest routine PA & lateral (03/29/2014 6:49 AM EDT) Anatomical Region Laterality Modality Chest N/A Radiographic Imaging Specimen (Source) Anatomical Collection Method Collection Time Re ceived Time Location / / Volume Laterality 03/29/2014 6:49 AM EDT Narrative 03/29/2014 7:44 AM EDT Examination CHEST ROUTINE 2 VIEWS Clinical History 63 yo female with AFIB Comparison None Technique AP and lateral chest radiograph Findings The cardiomediastinal silhouette and pul monary vasculature are normal. The lungs are clear without focal consolidat ion. No pleural effusion or pneumothorax. Bones are unremarkable. Impression No acute cardiopulmonary process. Procedure Note Marlin Keller MD - 03/29/2014 Examination CHEST ROUTINE 2 VIEWS Clinical History 63 yo female with AFIB Comparison None Technique AP and lateral chest radiograph Findings The cardiomediastinal silhouette and pul monary vasculature are normal. The lungs are clear without focal consolidat ion. No pleural effusion or pneumothorax. Bones are unremarkable. Impression No acute cardiopulmonary process. Cathie Venegas MD IMG DX ORDERABLES (ABNORMAL) POCT Glucose (03/29/2014 6:22 AM EDT) athologist Signature POC Glucose 373 (H) 60 - 199 CERNER mg/dL [facility] Comment: Supplemental ranges: <140 mg/dL before meals <180 mg/dL all other times of the day Specimen Anatomical Collection Method Collection Time Receive d Time (Source) Location / / Volume Laterality Blood specimen 03/29/2014 6:22 AM 014 6:22 (specimen) EDT AM EDT Cathie Venegas MD POINT OF CARE TEST ORDERABLE S Performing Organization Address City/State/[place] [address] CERNER [facility] EKG 12 Lead (03/29/2014 4:36 AM EDT) [facility] Method Time Signature Ventricular rate 75 BPM MUSE SYSTEM Atrial Rate 75 BPM MUSE SYSTEM P-R Interval 196 ms MUSE SYSTEM QRS Duration 68 ms MUSE SYSTEM Q-T Interval 388 ms MUSE SYSTEM QTC Calculated 433 ms MUSE SYSTEM (Bezet) Calculated P [place] -21 degrees MUSE SYSTEM Calculated R [place] 31 degrees MUSE SYSTEM Calculated T [place] 14 degrees MUSE SYSTEM INTERPRETATION Sinus rhythm with Premature atrial complexes MUSE SYSTEM Low voltage QRS Borderline ECG No previous ECGs available Confirmed by MD ANAYELI, USHA ([id number]) on 03/29/2014 8:23:52 AM Specimen Anatomical Collection Method Collection Time Receive d Time (Source) Location / / Volume Laterality 03/29/2014 4:36 AM 4 8:23 EDT AM EDT Cathie Venegas MD ECG ORDERABLES Performing Organization Address City/State/ZIP Code Phon e Number MUSE SYSTEM Cardiac Enzymes (03/29/2014 3:19 AM EDT) athologist Signature Troponin-T <0.03 <=0.03 CERNER ng/mL [facility] Comment: 0.03 ng/mL: Represents the 99th percenti le upper reference limit for normals. >0.03 ng/mL: Elevated cardiac troponin T level indicative of myocardial damage. Diagnosis of acute, evolving or recent M I requires a typical rise and gradual fall of cTnT with at least ONE of the fo llowing: a) Ischemic symptoms b) Development of pathologic Q waves on the ECG c) ECG changes indicative of eschemia (S -T segment elevation/depression) d) Coronary artery intervention Serial bloods should be obtained for lisandro ting on admission, at 6 to 9 hrs and again at 12 to 24 hrs if earlier samples are negative and the clinical index of suspicion is high. Reference: [Myocardial infarction redefined? a consensus document of the Joint Society of Cardiology/[employer] [place] [employer] Committee for the redefinition of myocardial infarction. ? ?Journal of the [employer] [place] [employer] 2000; 36: 959-969] CK, Total 77 0 - 160 unit/L CERNER MILLENNI UM Specimen Anatomical Collection Method Collection Time Receive d Time (Source) Location / / Volume Laterality Blood specimen 03/29/2014 3:19 AM 014 3:27 (specimen) EDT AM EDT Resulting Agency Comment Spec In Lab Cathie Venegas MD CHEMISTRY ORDERABLES Performing Organization Address City/State/[place] [address] CERNER MILLENNIUM (ABNORMAL) Differential, Automated (03/29/2014 3:19 AM EDT) [facility] Method Time Signature Neutrophils % 74.7 % CERNER MILLENNIUM Neutr Abs (ANC) 6.50 (H) 1.50 - CERNER 6.30 MILLENNIUM x10(3)/mc L Lymphocytes % 16.6 % CERNER MILLENNIUM Lymphocytes Abs 1.4 1.0 - 3.6 CERNER x10(3)/mc MILLENNIUM L Monocytes % 7.3 % CERNER MILLENNIUM Monocyte Abs 0.6 0.2 - 1.0 CERNER x10(3)/mc MILLENNIUM L Eosinophils % 1.0 % CERNER MILLENNIUM Eosinophils Abs 0.1 0.0 - 0.5 CERNER x10(3)/mc MILLENNIUM L Basophils % 0.2 % CERNER MILLENNIUM Basophils Abs 0.0 0.0 - 0.2 CERNER x10(3)/mc MILLENNIUM L Immature Gran % 0.20 % CERNER MILLENNIUM Comment: Immature granulocytes(IG's)percentage an d absolute [...] Location / / Volume Laterality Blood specimen 03/29/2014 3:19 AM 014 3:25 (specimen) EDT AM EDT Resulting Agency Comment Spec In Lab Cathie Venegas MD HEMATOLOGY ORDERABLES Performing Organization Address City/State/ZIP [facility] Phon e Number [place] [phone] CERNER MILLENNIUM (ABNORMAL) Hemogram (03/29/2014 3:19 AM EDT) P athologist Signature WBC 8.7 4.0 - 10.0 CERNER x10(3)/mcL MILLENNIUM RBC 4.46 3.93 - 5.22 CERNER x10(6)/mcL MILLENNIUM Hemoglobin 12.8 11.2 - 15.7 CERNER gm/dL MILLENNIUM Hematocrit 39.4 34.0 - 45.0 CERNER % MILLENNIUM MCV 88.3 79.0 - 94.0 CERNER fL MILLENNIUM MCH 28.7 26.6 - 32.2 CERNER pg MILLENNIUM MCHC 32.5 32.0 - 36.5 CERNER gm/dL MILLENNIUM Platelets 407 (H) 145 - 370 CERNER x10(3)/mcL MILLENNIUM RDWSD 41.2 35.0 - 46.0 CERNER fL MILLENNIUM RDWCV 12.9 10.9 - 14.4 CERNER % MILLENNIUM MPV 10.2 9.0 - 12.0 CERNER fL MILLENNIUM Specimen Anatomical Collection Method Collection Time Receive d Time (Source) Location / / Volume Laterality Blood specimen 03/29/2014 3:19 AM 014 3:25 (specimen) EDT AM EDT Resulting Agency Comment Spec In Lab Cathie Venegas MD HEMATOLOGY ORDERABLES Performing Organization Address City/State/ZIP [place] [address] [facility] (ABNORMAL) Hemoglobin A1c (03/29/2014 3:19 AM EDT) [facility] Method Time Signature Hemoglobin A1C 10.4 (H) <=5.6 % [facility] Comment: Reference Range: 4.3 - 5.6% 5.7 - 6.4% - Increased Risk of Developin g Diabetes Mellitus 6.5% - Consistent with diagnosis of Diab etes Mellitus In the absence of hyperglycemia (i.e. pl asma glucose > 200 mg/dL) or classic symptoms of hyperglycemia a repeat measu rement of HbA1c should be performed on a separate sample to confirm the diagnos is. Diagnosis and Classification of Diabetes Mellitus, Diabetes Care 2013; 36: Suppl. 1, T17-71 Est Avg Gluc 252 mg/dL [facility] Comment: eAG equivalents for HbA1c percentages: HbA1c(%) ?eAG(mg/dL) 6.0 ?126 6.5 ?140 7.0 ?154 7.5 ?169 8.0 ?183 8.5 ?197 9.0 ?212 9.5 ?226 10.0 ? 240 Limitations: The eAG calculation has not been validated on women, individuals below 18 years old and above 70 years old, and individuals with hemoglobinopathies. Additional resources are available on ADA website: http://[employer]/DHMCadacalc Mike NGUYEN, Jacqueline J, Kadi R, et al. ??Tr anslating the A1C assay into estimated average glucose values. ??Diabetes Care 2008:31(8):2120-3563. Specimen Anatomical Collection Method Collection Time Receive d Time (Source) Location / / Volume Laterality Blood specimen 03/29/2014 3:19 AM 014 3:25 (specimen) EDT AM EDT Resulting Agency Comment Spec In Lab Cathie Venegas MD CHEMISTRY ORDERABLES Performing Organization Address City/State/[place] [address] CERWYATT LIZARRAGAIUM Lipid panel (fasting) (03/29/2014 3:19 AM EDT) P athologist Signature Chol, Total 124 <=199 mg/dL CERWYATT MARIANENNIUM Comment: Recommendations of the NCEP Adult Treatm ent Panel for the following risk cutoff thresholds for the [place] populatio n: Desirable: <200 mg/dL Borderline High: 200-239 mg/dL High: > or = 240 mg/dL Triglycerides 102 <=149 mg/dL CERWYATT MILLENN [facility] Comment: Reference Range: Normal triglycerides: ??<150 mg/dL Borderline high: ??150-199 mg/dL High: ??200-499 mg/dL Very high: ??>dq=715 mg/dL WAYNE 2001; 285(19):6711-1238 HDL 56 >=40 mg/dL CERWYATT MARIANENNIUM Comment: Reference range: ??Low HDL: ?? < 40 mg/dL ??Normal: ?40-60 mg/dL ??Desirable: > 60 mg/dL WAYNE 2001; 285(19):2829-2428 LDL Cholesterol 48 <=99 mg/dL BRADLEY SALMON NICOLLIN Comment: Reference range: ?? Optimal: ?<100 mg/dL ?? Near Optimal/Above Optimal: ?? 100-1 29 mg/dL ?? Borderline high: ?130-159 mg/dL ?? High: ? 160-189 mg/dL ?? Very high: ?>zf=271 mg/dL WAYNE 2001: 285(19):6441-8505 Chol/HDL Ratio 2.2 ratio CERNER MILLENNI UM Comment: A Cholesterol to HDL ratio below 4:1 is desirable. ??Studies suggest that increased CAD risk occurs at ratios abov e 5 for females and above 6 for men. ? [place] [employer] Association ??(htt p://www.americanheart.org) ? Laura Int Med, 1994; 121:641 ? AM J Med, 1998; 105(1A):48S Specimen Anatomical Collection Method Collection Time Receive d Time (Source) Location / / Volume Laterality Blood specimen 03/29/2014 3:19 AM 3:25 (specimen) EDT AM EDT Resulting Agency Comment Spec In Lab Cathie Venegas MD CHEMISTRY ORDERABLES Performing Organization Address [facility] Phon e Number [address] CERNER MILLENNIUM (ABNORMAL) Hepatic Function Panel (03/29/2014 3:19 AM EDT) Analysis Performed At Patho logist Time Signature Total Protein 6.9 6.4 - 8.3 CERNER gm/dL MILLENNIUM Albumin 3.8 3.2 - 5.2 CERNER gm/dL MILLENNIUM AST 15 0 - 30 CERNER unit/L MILLENNIUM ALT 16 0 - 30 CERNER unit/L MILLENNIUM Alk Phos 47 40 - 104 CERNER unit/L MILLENNIUM Total <0.2 (L) 0.2 - 1.3 CERNER Bilirubin mg/dL MILLENNIUM Bili, Direct <0.1 0.0 - 0.3 CERNER mg/dL MILLENNIUM Specimen Anatomical Collection Method Collection Time Receive d Time (Source) Location / / Volume Laterality Blood specimen 03/29/2014 3:19 AM 3:25 (specimen) EDT AM EDT Resulting Agency Comment Spec In Lab Cathie Venegas MD CHEMISTRY ORDERABLES Performing Organization Address [facility] [place] [address] CERNER MILLENNIUM TSH (03/29/2014 3:19 AM EDT) athologist Signature TSH 0.62 0.27 - 4.20 CERNER mcIU/mL [facility] Specimen Anatomical Collection Method Collection Time Receive d Time (Source) Location / / Volume Laterality Blood specimen 03/29/2014 3:19 AM 014 3:25 (specimen) EDT AM EDT Resulting Agency Comment Spec In Lab Cathie Venegas MD CHEMISTRY ORDERABLES Performing Organization Address [facility] Phon e Number [address] [facility] APTT (03/29/2014 3:19 AM EDT) athologist Signature PTT 27 25 - 35 sec [facility] Comment: Recommended therapeutic PTT range for fu ll dose unfractionated heparin is 80-114 seconds. Specimen Anatomical Collection Method Collection Time Receive d Time (Source) Location / / Volume Laterality Blood specimen 03/29/2014 3:19 AM 3:25 (specimen) EDT AM EDT Resulting Agency Comment Spec In Lab Cathie Venegas MD HEMATOLOGY ORDERABLES Performing Organization Address City/[facility] Phon e Number [address] [facility] Prothrombin Time (03/29/2014 3:19 AM EDT) athologist Signature PT 12.7 12.5 - 15.[address] [facility] Comment: [facility] Transfusion Committee Guidelines: I NR less than 2.0, PTT less than OR equal to 43.5 seconds, or Fibrinogen gre ater than or equal to 100 mg/dl indicate adequate procoagulant activity for hemostasis in patients without underlying bleeding disorders. INR 0.9 0.9 - 1.1 [facility] Specimen Anatomical Collection Method Collection Time Receive d Time (Source) Location / / Volume Laterality Blood specimen 03/29/2014 3:19 AM 014 3:25 (specimen) EDT AM EDT Resulting Agency Comment Spec In Lab Cathie Venegas MD HEMATOLOGY ORDERABLES Performing Organization Address City/[facility]/[place] [address] CERNER MILLENNIUM Phosphorus (03/29/2014 3:19 AM EDT) P athologist Signature Phosphorus 2.6 2.5 - 4.5 CERNER mg/dL MILLENNIUM Specimen Anatomical Collection Method Collection Time Receive d Time (Source) Location / / Volume Laterality Blood specimen 03/29/2014 3:19 AM 014 3:25 (specimen) EDT AM EDT Resulting Agency Comment Spec In Lab Cathie Venegas MD CHEMISTRY ORDERABLES Performing Organization Address City/[facility]/[place] [address] CERNER MILLENNIUM (ABNORMAL) Magnesium (03/29/2014 3:19 AM EDT) P athologist Signature Magnesium 0.66 (L) 0.69 - 1.07 CERNER mmol/L [facility] Specimen Anatomical Collection Method Collection Time Receive d Time (Source) Location / / Volume Laterality Blood specimen 03/29/2014 3:19 AM 3:25 (specimen) EDT AM EDT Resulting Agency Comment Spec In Lab Cathie Venegas MD CHEMISTRY ORDERABLES Performing Organization Address City/[facility]/[place] [address] CERNER MILLENNIUM (ABNORMAL) BMP w/fasting Glucose (03/29/2014 3:19 AM EDT) P athologist Signature Glucose 416 (H) 65 - 99 CERNER Fasting mg/dL MILLENNIUM Comment: ?Fasting* Glucose Interpretive C riteria Normal [...] of Diabetes Mellitus, Position Statement from the [place] Diabetes Association. ??Diabete s Care, Volume 33, Supplement 1, Jun 2009 BUN 23 (H) 8 - 18 mg/dL CERNER MILLENNIUM Creatinine 0.74 0.70 - 1.20 mg/dL CERNER MILL ENNIUM Comment: Please note that the pediatric reference intervals supplied above were not validated at [facility]. Results from pediatri c patients should be interpreted in conjunction to the patient's age, height and muscle mass. Sodium 138 135 - 145 mmol/L CERNER LUIS ANTONIO NIUM Potassium 4.8 3.5 - 5.0 mmol/L CERNER LUIS ANTONIO NIUM Comment: Please note: ??Patients with WBC >100,00 0 may have falsely elevated Potassium levels. ??For accurate Potassium quantif ication in these patients send serum separator tube (gold top) for subsequent determinations. ??Contact the Clinical Chemistry Laboratory if there are any qu estions. Chloride 103 98 - 107 mmol/L CERNER MILLENN IUM CO2 22 22 - 31 mmol/L CERNER MILLENNI UM Anion Gap 13 5 - 15 mmol/L CERNER MILLENNIU M Calcium 8.9 8.5 - 10.5 mg/dL CERNER LUIS ANTONIO NIUM Estimated GFR >60 >=60 CERNER MILLENNIU M Comment: This estimated GFR (eGFR) value was calc ulated using the MDRD equation which has been validated on patients between t he ages of 18 and 70. The MDRD should not be used to assess kidney function in patients < 18 years of age or in patients with extremes of body mass, or in patients with acute kidney failure. This value should be multiplied by 1.2 f or patients. For further information please copy and past e the following links into your internet browser. http://[employer]/DHnkdep http://[employer]/DHMCnkf Specimen Anatomical Collection Method Collection Time Receive d Time (Source) Location / / Volume Laterality Blood specimen 03/29/2014 3:19 AM 014 3:25 (specimen) EDT AM EDT Resulting Agency Comment Spec In Lab Cathie Venegas MD CHEMISTRY ORDERABLES Performing Organization Address City/State/ZIP Code Phon e Number [address] [facility] (ABNORMAL) POCT Glucose (03/29/2014 3:06 AM EDT) athologist Signature POC Glucose 362 (H) 60 - 199 CERNER mg/dL [facility] Comment: Supplemental ranges: <140 mg/dL before meals <180 mg/dL all other times of the day Specimen Anatomical Collection Method Collection Time Receive d Time (Source) Location / / Volume Laterality Blood specimen 03/29/2014 3:06 AM 014 3:06 (specimen) EDT AM EDT Cathie Venegas MD POINT OF CARE TEST ORDERABLE S Performing Organization Address City/[facility]/ZIP Code Phon e Number [address] [facility] documented in this encounter Visit Diagnoses Diagnosis SVT (supraventricular tachycardia) - Violeta kaye Other specified cardiac dysrhythmias Atrial fibrillation Diabetes mellitus Type II or unspecified type diabetes michelle litus without mention of complication, not stated as uncontrolled documented in this encounter Administered Medications Inactive Administered Medications - up to 3 most recent administrations Medication Order MAR Action Action Date Dose Rate Site aspirin EC tablet 81 mg Given 03/30/2014 8:26 AM EDT 81 mg 81 mg, Oral, DAILY, First dose on Thu03/29/14 at 0900, Until Discontinued, Routine Given 03/29/2014 8:00 AM EDT 81 mg atorvastatin (LIPITOR) tablet 10 mg Given 03/29/2014 4:18 PM EDT 10 mg 10 mg, Oral, EVERY EVENING, First dose on Thu03/29/14 at 1700, Until Discontinued, Routine DILTiazem (CARDIZEM) 125 mg in D5W New Bag 03/29/2014 6:15 AM EDT 5 mg/hr 5 mL/hr 125 mL infusion 5 mg/hr (rounded to 5 mL/hr), Intravenous, CONTINUOUS, Starting on Thu03/29/14 at 0445, Until Thu03/29/14 at 1006, Infusion: ? ? Titrate to maintain heart rate of 110 ; Call MD for heart less than 60. Initiate infusion at 5 mg/hr and increase every 30 minutes by 5 mg/hr to a maximum dose of 15 mg/hr., Routine DILTiazem (CARDIZEM) tablet 30 mg Given 03/30/2014 11:52 AM EDT 30 mg 30 mg, Oral, EVERY 6 HOURS SCHEDULED, First dose on Thu03/29/14 at 2000, Until Discontinued, Hold for SBP<95, Routine Given 03/30/2014 5:50 AM EDT 30 mg Given 03/30/2014 1:04 AM EDT 30 mg esomeprazole (NexIUM) capsule 20 mg Given 03/30/2014 8:26 AM EDT 20 mg 20 mg, Oral, DAILY, First dose on Thu03/29/14 at 0900, Until Discontinued, Routine Given 03/29/2014 8:00 AM EDT 20 mg heparin (porcine) injection 3,200-6,400 Given 03/29/20 6:49 AM EDT 6,400 Units Units 3,200-6,400 Units, Intravenous, BOLUS PER HEPARIN PROTOCOL, Starting on Thu03/29/14 at 0526, Until Cathy 03/30/14 at 1407, Per Protocol, Adjust to dosing chart, Patient Weight 90-94 kg aPTT less than 60 seconds - 6,400 units aPTT 60-79 seconds - 3,200 units aPTT 80-114 seconds - no bolus Repeat aPTT 6 hours after initiating heparin. Then 6 hours after each dose adjustment. When 2 consecutive aPTT within target range of 80 - 114 seconds, change aPTT to once every 24 hours with A.M. labs while on heparin., RN to order required aPTT - Per Protocol, Routine heparin 25,000 units in Rate/Dose Change 03/30/2014 8:15 1,300 Unit s/hr 26 mL/hr dextrose 5% 500 mL AM EDT infusion 500-7,000 Units/hr (rounded to 10-140 mL/hr), Intravenous, CONTINUOUS, Starting on Thu03/29/14 at 0600, Until Cathy 03/30/14 at 1407, Patient Weight 90-94 kg Initial dose - 1,400 units/hr = 28 mL/hr aPTT less than 60 sec - increase by 350 units/hr = 7 mL/hr aPTT 60-79 sec- increase by 200 units/hr = 4 mL/hr aPTT 80-114 sec - no change aPTT 115-129 sec - decrease by 100 units/hr = 2 mL/hr aPTT 130-145 sec - stop infusion for 30 min then decrease by 200 units/hr = 4 mL/hr aPTT greater than 145 sec - stop infusion for 60 min then decrease by 300 units/hr = 6 mL/hr aPTT greater than 145 sec X 2 - call supervisor vat house See Bolus dosing guidance for aPTT values less than 80 seconds under PRN medications Repeat aPTT 6 hours after initiating heparin. Then 6 hours after each dose adjustment. When 2 consecutive aPTT within target range of 80 - 114 seconds, change aPTT to once every 24 hours with A.M. labs while on heparin. RN to order required aPTT - Per Protocol, Routine New Bag 03/30/2014 12:49 AM EDT 1,100 Units/hr 22 mL/hr Restarted 03/30/2014 12:46 AM EDT 1,100 Units/hr 22 mL/hr insulin aspart (novoLOG) VIAL injection 1-10 Given 02/2014 8:23 AM EDT 7 Units Units 1-10 Units, Subcutaneous, 3 TIMES DAILY WITH MEALS, First dose on Thu03/29/14 at 1700, Until Discontinued, MEAL ASSOCIATED Give 1 unit for every 8 grams carbohydrate. Hold if not eating Given 03/29/2014 5:34 PM EDT 9 Units insulin aspart (novoLOG) VIAL injection Given 03/30/2014 12:28 P M EDT 10 Units 1-12 Units 1-12 Units, Subcutaneous, 3 TIMES DAILY WITH MEALS, First dose on Thu03/30/14 at 1200, Until Discontinued, MEAL ASSOCIATED Give 1 unit for every 6 grams carbohydrate. Hold if not eating insulin aspart (novoLOG) VIAL injection 1-4 Given 02/2014 7:51 AM EDT 3 Units Units 1-4 Units, Subcutaneous, EVERY 4 HOURS SCHEDULED, First dose on Thu03/29/14 at 1600, Until Discontinued, CORRECTION BOLUS Sensitive to insulin lean patient or total daily dose of all insulin needed to achieve glycemic control less than 30 units BG 140 - 160 Give 1 unit BG 161 - 200 Give 2 units BG 201 - 240 Give 3 units BG greater than 240, give 4 units and recheck BG in 2 hours. If BG remains greater than 240, repeat 4 units (no more than three times) & call for new basal insulin orders. If less than 240 after two hours, give no insulin and resume prior schedule. Given 03/30/2014 12:12 AM EDT 2 Units Given 03/29/2014 10:01 PM EDT 4 Units insulin aspart (novoLOG) VIAL injection 2-8 Given 01/2014 7:58 AM EDT 8 Units Units 2-8 Units, Subcutaneous, EVERY 4 HOURS SCHEDULED, First dose on Thu03/29/14 at 0400, Until Discontinued, CORRECTION BOLUS Moderate BG 140 - 160 Give 2 units BG 161 - 200 Give 4 units BG 201 - 240 Give 6 units BG greater than 240, give 8 units and recheck BG in 2 hours. If BG remains greater than 240, repeat 8 units (no more than three times) & call for new basal insulin orders. If less than 240 after two hours, give no insulin and resume prior schedule. Given 03/29/2014 6:29 AM EDT 8 Units Given 03/29/2014 4:33 AM EDT 8 Units insulin aspart (novoLOG) VIAL injection 2-8 Given 02/2014 2:28 PM EDT 8 Units Units 2-8 Units, Subcutaneous, EVERY 4 HOURS SCHEDULED, First dose on Thu03/30/14 at 0900, Until Discontinued, CORRECTION BOLUS Moderate BG 140 - 160 Give 2 units BG 161 - 200 Give 4 units BG 201 - 240 Give 6 units BG greater than 240, give 8 units and recheck BG in 2 hours. If BG remains greater than 240, repeat 8 units (no more than three times) & call for new basal insulin orders. If less than 240 after two hours, give no insulin and resume prior schedule. Given 03/30/2014 12:28 PM EDT 8 Units insulin aspart (novoLOG) VIAL injection Given 03/29/2014 10:28 A M EDT 3 Units 3-12 Units 3-12 Units, Subcutaneous, EVERY 4 HOURS SCHEDULED, First dose on Thu03/29/14 at 0915, Until Discontinued, CORRECTION BOLUS Resistant to insulin obese patient and TDD (total daily dose of all insulin needed to achieve glycemic control) greater than 60 units BG 140 - 160 Give 3 units BG 161 - 200 Give 6 units BG 201 - 240 Give 9 units BG greater than 240, give 12 units and recheck BG in 2 hours. If BG remains greater than 240, repeat 12 units (no more than three times) & call for new basal insulin orders. If less than 240 after two hours, give no insulin and resume prior schedule. insulin glargine (LANTUS) VIAL injection 28 Given 01/2014 9:59 PM EDT 28 Units Units 28 Units, Subcutaneous, NIGHTLY, First dose (after last modification) on Thu03/29/14 at 2100, Until Discontinued, Routine lisinopril (PRINIVIL;ZESTRIL) tablet 5 m g Given 03/30/2014 8:26 AM EDT 5 mg 5 mg, Oral, DAILY, First dose on Thu03/29/14 at 0900, Until Discontinued, Routine Given 03/29/2014 8:00 AM EDT 5 mg magnesium sulfate 1g in dextrose 5% Given 03/29/2014 4:54 AM EDT 1 g 100 mL/hr 100mL 1 g, Intravenous, ONCE, 1 dose, On Thu03/29/14 at 0430, Administer over 60 Minutes magnesium sulfate 2 g in sterile water Given 03/30/2014 11:4 6 AM EDT 2 g 25 mL/hr 50 mL 2 g, Intravenous, ONCE, 1 dose, On Cathy 03/30/14 at 1200, Administer over 120 Minutes metoprolol (LOPRESSOR) pre-split tablet Given 03/30/2014 11:51 A M EDT 37.5 mg 37.5 mg 37.5 mg, Oral, EVERY 6 HOURS SCHEDULED, First dose on Thu03/29/14 at 0600, Until Discontinued, Hold for SBP <90 or HR <55, Routine Given 03/30/2014 6:05 AM EDT 37.5 mg Given 03/30/2014 12:12 AM EDT 37.5 mg perflutren protein-A microspheres (OPTISON) Given 01/2014 11:39 AM EDT 2.3 mLs 0.22 mg/mL injection 2.3 mL 2.3 mL, Intravenous, ONCE PRN, 1 dose, Starting on Thu03/29/14 at 1138, Until Thu03/29/14 at 1139, for enhancement of sub-optimal echo images, Echo Lab (Intra-Procedure), Routine documented in this encounter Active and Recently Administered Medications Times are shown in EDT. Scheduled Medication Order 03/28/2014 03/29/2014 03/30/2014 aspirin EC tablet 81 mg (CANCELED) 0800 (Given - Provider: Liana Hagen RN) 0826 (Given - Provider: Kimberly villavicencio RN) 81 mg, Oral, DAILY, First dose on Thu at 0900, Until Discontinued, Routine atorvastatin (LIPITOR) tablet 10 mg (CANCELED) 1618 (Given - Provider: Liana Hagen RN) 10 mg, Oral, EVERY EVENING, First dose o n Thu03/29/14 at 1700, Until Discontinued, Routine DILTiazem (CARDIZEM) tablet 30 mg (CANCELED) 1946 (Given - Provider: Natalie Zepeda RN) 0104 (Given - Provider: Natalie Zepeda RN)0550 (Given - Provider: Natalie Zepeda RN)1152 (Given - Provider: Kimberly Mejias RN) 30 mg, Oral, EVERY 6 HOURS SCHEDULED, Fi rst dose on Thu03/29/14 at 2000, Until Discontinued, Hold for SBP<95, Routine esomeprazole (NexIUM) capsule 20 mg (CANCELED) 0800 (Given - Provider: Liana Hagen RN) 0826 (Given - Provider: Kimberly villavicencio RN) 20 mg, Oral, DAILY, First dose on Thu at 0900, Until Discontinued, Routine insulin aspart (novoLOG) VIAL injection 1-10 Units (CANCELED ) 1734 (Given - Provider: Liana Hagen RN) 0823 (Given - Provider: Kimberly villavicencio RN - Comment: 56grams carbs /8 =7units) 1-10 Units, Subcutaneous, 3 TIMES DAILY WITH MEALS, First dose on Thu03/29/14 at 1700, Until Discontinued, MEAL ASSOCIATED Give 1 unit for every 8 grams carbohydrate. Hold if not eating, Routine insulin aspart (novoLOG) VIAL injection 1-12 Units (CANCELED) 1228 (Given - Provider: Kimberly Mejias RN - Comment: 59 carbs/ 6 = 10 units) 1-12 Units, Subcutaneous, 3 TIMES DAILY WITH MEALS, First dose on Thu03/30/14 at 1200, Until Discontinued, MEAL ASSOCIATED Give 1 unit for every 6 grams carbohydrate. Hold if not eating, Routine insulin aspart (novoLOG) VIAL injection 1-4 Units (CANCELED) 161 (Given - Provider: Liana Hagen RN)2011 (Given - Provider: Natalie Zepeda, KRIS)2200 (Given - Provider: Natalie Zepeda, KRIS) 11 (Given - Provider: Natalie Zepeda RN)040 (Not Given - Provider: Natalie Zepeda RN - Reason: Patient/family refused)075 (Given - Provider: Kimberly Mejias RN) 1-4 Units, Subcutaneous, EVERY 4 HOURS S CHEDULED, First dose on Thu03/29/14 at 1600, Until Discontinued, CORRECTION BOLUS Sensitive to insulin lean patient or total daily dose of all insulin needed to achieve glycemic control less than 30 units BG 140 - 160 Give 1 unit BG 161 - 200 Give 2 units BG 201 - 240 Give 3 units BG greater than 240, give 4 units and recheck BG in 2 hours. If BG remains gre ater than 240, repeat 4 units (no more t mendoza three times) & call for new basal insulin orders. If less than 240 after two hours, give no insulin and resume prior schedule., Routine insulin aspart (novoLOG) VIAL injection 2-8 Units (CANCELED) 0433 (Given - Provider: Kelly Shelley RN)06 (Given - Provider: Kelly Shelley RN)075 (Given - Provider: Liana Hagen RN) 2-8 Units, Subcutaneous, EVERY 4 HOURS S CHEDULED, First dose on Thu03/29/14 at 0400, Until Discontinued, CORRECTION BOLUS Moderate BG 140 - 160 Give 2 units BG 161 - 200 Give 4 units BG 201 - 240 Gi ve 6 units BG greater than 240, give 8 u nits and recheck BG in 2 hours. If BG remains greater than 240, repeat 8 units (no more than three times) & call for new basal insulin orders. If less than 24 0 after two hours, give no insulin and resume prior schedule., R outine insulin aspart (novoLOG) VIAL injection 2-8 Units (CANCELED) 0900 (Not Given - Provider: Kimberly Mejias RN - Reason: See comment - Comment: coverage given already this am)1228 (Given - Provider: Kimberly Mejias RN) 2-8 Units, Subcutaneous, EVERY 4 HOURS S CHEDULED, First dose on Thu03/30/14 at 0900, Until Discontinued, CORRECTION BOLUS Moderate BG 140 - 160 Give 2 units BG 161 - 200 Give 4 units BG 201 - 240 Gi 1428 (Given - Provider: Kimberly Mejias RN - Comment: BG rechecked 2hrs later for BG >240) ve 6 units BG greater than 240, give 8 u nits and recheck BG in 2 hours. If BG remains greater than 240, repeat 8 units (no more than three times) & call for new basal insulin orders. If less than 24 0 after two hours, give no insulin and resume prior schedule., R outine insulin aspart (novoLOG) VIAL injection 3-12 Units (CANCELED ) 1028 (Given - Provider: Liana Hagen RN)1200 (Not Given - Provider: Liana Hagen RN - Reason: Order parameters not met) 3-12 Units, Subcutaneous, EVERY 4 HOURS SCHEDULED, First dose on Thu03/29/14 at 0915, Until Discontinued, CORRECTION BOLUS Resistant to insulin obese patient and TDD (total daily dose of all insulin needed to achieve glycemic control) gre ater than 60 units BG 140 - 160 Give 3 units BG 161 - 200 Give 6 units BG 201 - 240 Give 9 units BG greater than 240, give 12 units and recheck BG in 2 hours. If BG remains greater than 240, repeat 12 u nits (no more than three times) & call for new basal insulin orders. If less than 240 after two hours, give no insulin and resume prior schedule., Routine insulin glargine (LANTUS) VIAL injection 28 Units (CANCELED) 9 (Given - Provider: Natalie Zepeda RN) 28 Units, Subcutaneous, NIGHTLY, First d ose on Thu03/29/14 at 2100, Until Discontinued, Routine lisinopril (PRINIVIL;ZESTRIL) tablet 5 mg (CANCELED) 0800 (Given - Provider: Liana Hagen RN) 0826 (Given - Provider: Kimberly villavicencio RN) 5 mg, Oral, DAILY, First dose on 02/02 at 0900, Until Discontinued, Routine magnesium sulfate 1g in dextrose 5% 100mL (COMPLETED) 0454 (Given - Provider: Kelly Shelley RN) 1 g, Intravenous, ONCE, 1 dose, Thu03/29/14 at 0430, for 60 Rachael lisandro magnesium sulfate 2 g in sterile water 50 mL (COMPLETED) 1146 (Given - Provider: Kimberly Mejias RN) 2 g, Intravenous, ONCE, 1 dose, Cathy 03/30/14 at 1200, for 120 Min utes metoprolol (LOPRESSOR) pre-split tablet 37.5 mg (CANCELED) 0654 (Given - Provider: Kelly Shelley RN)1137 (Given - Provider: Liana Hagen RN)1741 (Given - Provider: Liana Hagen RN) 0012 (Given - Provider: Natalie Zepeda RN)0605 (Given - Provider: Natalie Zepeda RN)1151 (Given - Provider: Kimberly Mejias RN) 37.5 mg, Oral, EVERY 6 HOURS SCHEDULED, First dose on Thu03/29/14 at 0600, Hold for SBP <90 or HR <55 Continuous Medication Order 03/28/2014 03/29/2014 03/30/2014 DILTiazem (CARDIZEM) 125 mg in D5W 125 mL infusion (CANCELED ) 0615 (New Bag - Provider: Kelly Shelley RN)1009 (Stopped - Provider: Liana Hagen RN) 5 mg/hr = 5 mL/hr, Intravenous, at 5 mL/ hr, CONTINUOUS, Starting Thu03/29/14 at 0445, Until Thu03/29/14 at 1006, Infusion: ? ? Titrate to maintain heart rate of 110 ; Call MD for heart less than 60. Ini tiate infusion at 5 mg/hr and increase e very 30 minutes by 5 mg/hr to a maximum dose of 15 mg/hr., Routine heparin 25,000 units in dextrose 5% 500 mL infusion (CANCELE D) 0650 (New Bag - Provider: Kelly Shelley RN)1600 (Rate/Dose Verify - Provider: Liana Hagen RN)1711 (Rate/Dose Verify - Provider: Liana Hagen RN - Comment: ptt 81) 0046 (Restarted - Provider: Natalie Zepeda, RN)0049 (New Bag - Provider: Natalie Zepeda, KRIS)0815 (Rate/Dose Change - Provider: Kimberly Mejias, RN)1435 (Stopped - Provider: Kimberly Mejias, RN) 500-7,000 Units/hr = 10-140 mL/hr, Intra venous, at 10-140 mL/hr, CONTINUOUS, Starting 03/29/14 at 0600, Until Cathy 03/30/14 at 1407, Patient Weight 90-94 kg Initial dose - 1,400 units/hr = 28 mL/hr aP 2339 (S topped - Provider: Natalie Zepeda RN - Comment: per protocol for PTT>160.) TT less than 60 sec - increase by 350 un its/hr = 7 mL/hr aPTT 60-79 sec- increase by 200 units/hr = 4 mL/hr aPTT 80-114 sec - no change aPTT 115-129 sec - decrease by 100 units/hr = 2 mL/hr aPTT 130-145 sec - stop infusion for 30 min then dec rease by 200 units/hr = 4 mL/hr aPTT greater than 145 sec - stop infusion for 60 min then decrease by 300 units/hr = 6 mL/hr aPTT greater than 145 sec X 2 - call supervisor vat house See Bolus dosing alberta alvarado for aPTT values less than 80 seconds under PRN medications Repeat aPTT 6 hours after initiating heparin. Then 6 hours after each dose adjustment. When 2 consec utive aPTT within target range of 80 - 1 14 seconds, change aPTT to once every 24 hours with A.M. labs while on heparin. RN to order required aPTT - Per Protocol, Routine PRN Medication Order 03/28/2014 03/29/2014 03/30/2014 heparin (porcine) injection 3,200-6,400 Units (CANCELED) 0649 (Given - Provider: Kelly Shelley RN - Comment: PTT 27) 3,200-6,400 Units, Intravenous, BOLUS PE R HEPARIN PROTOCOL, Starting 03/29/14 at 0526, Until Cathy 03/30/14 at 1407, Per Protocol, Adjust to dosing chart, Patient Weight 90-94 kg aPTT less than 60 seco nds - 6,400 units aPTT 60-79 seconds - 3 ,200 units aPTT 80-114 seconds - no bolus Repeat aPTT 6 hours after initiating heparin. Then 6 hours after each dose adjustment. When 2 consecutive aPTT within t arget range of 80 - 114 seconds, change aPTT to once every 24 hours with A.M. labs while on heparin., RN to order required aPTT - Per Protocol, Routine perflutren protein-A microspheres (OPTIS ON) 0.22 mg/mL injection 2.3 mL (COMPLETED) 1139 (Given - Provider: Mariama Spicer) 2.3 mL, Intravenous, ONCE PRN, 1 dose, S tarting Thu03/29/14 at 1138, Until Thu03/29/14 at 1139, for enhancement of sub-optimal echo images, Echo Lab (Intra- Procedure), Routine documented in this encounter Care Teams Sales Representative Publications Relationship Specialty Start Date End Date Quin Gordon, DOPE DRY HOUSE OPERATOR PCP - General 06/24/10 12/19/17 documented as of this encounter
--- OUTSIDE RECORDS SUMMARY | 2022-01-05 21:03 | XMS_ITS | Clinical Summary ---
:1950 Author Organization [facility] Address [address] [place] [address] Care Team Providers Name Role Phone Unknown, Provider Primary Care Provider Social History Tobacco Use Types Packs/Day Years Used Date Never Assessed Sex Assigned at Date Recorded Not on file Plan of Treatment Health Maintenance Due Date Last Done Comments Fall Risk Screening 2013 Care Teams Architecture Drafter Relationship Specialty Start Date End Date Unknown, Provider, PCP - General 05/21/10
--- OUTSIDE RECORDS SUMMARY | 2022-01-05 21:03 | XMS_ITS | Encounter Summary ---
:1950 Author Organization [facility] Address [address] [place] [address] Care Team Providers Name Role Phone Unknown, Provider Primary Care Provider Encounter Details Date Type Department Care Team Description 01/08/2018 Results Only Imaging [facility]- Unknown, PRISM ProviderMD [phone] Social History Tobacco Use Types Packs/Day Years Used Date Never Assessed Sex Assigned at Date Recorded Not on file documented as of this encounter Plan of Treatment Pending Results Name Type Priority Associated Diagnoses Date/Ti me OUTSIDE IMAGES - OTHER Imaging 01/08 8:55 EDT CHEST OUTSIDE IMAGES - CT NEURO Imaging 8:55 EDT documented as of this encounter Visit Diagnoses Not on filedocumented in this encounter Care Teams Mortgage Clerk Relationship Specialty Start Date End Date Unknown, Provider, PCP - General 05/21/10 documented as of this encounter
--- OUTSIDE RECORDS SUMMARY | 2022-01-05 21:03 | XMS_ITS | Encounter Summary ---
:1950 Author Organization [facility] Address [address] [place] [address] Care Team Providers Name Role Phone Unknown, Provider Primary Care Provider Encounter Details Date Type Department Care Team Description 05/20/2010 Results Only [facility]- PRISM Guillermo Valladares MD [phone] [address] [place] [phone] Social History Tobacco Use Types Packs/Day Years Used Date Never Assessed Sex Assigned at Date Recorded Not on file documented as of this encounter Plan of Treatment Not on filedocumented as of this encounter Procedures Procedure Name Priority Date/Time Associated Diagnosis Comme nts SURGICAL PATHOLOGY Routine 05/20/2010 0:00 EST Re sults for this procedure are i n the results section. documented in this encounter Results SURGICAL PATHOLOGY (05/20/2010 0:00 EST) Pathology SURGICAL PATHOLOGY REPORT ? [facility] Report: Reports generated via electr Wickr interface contain original data; ? LAB however they are lacking the format of the original report. ? Caution should be taken when reading/interpreting unformatted reports. ? Name: ? NAKIA, DHAVAL P ? Accession #: ? [id number] ? : ? 1950 (Age: 60) ??F ? Collec t Date: ? 05/20/2010 ? Location: ? [facility] ? R eceive Date: ? 05/20/2010 ? Provider: GUILLERMO P KENIA M D ? Copy to: AARTI CELE MD ? Final Pathologic Diagnosis: ? Skin of back, punch b iopsy: ? 1. ?Malignant m elanoma, invasive (superficial spreading type) (AJCC: ? pT1a, pNX). ??See comment. ? - Maximum tumor (Bres low) thickness: ??0.41 mm. ? - Anatomic (Memo) level: ?? II. ? - Epidermal ulceration: ??No t identified. ? - Lymphovascular invasion: ? ?Not identified. ? - In-transit metastases/sate llite metastases: ??Not able to assess. ? - Desmoplasia: ??Not identif ied. ? - Neurotropism: ??Not identi fied. ? - Tumor regression: ??Not id entified. ? - Mitotic index: ??Less than 1 per millimeter squared. ? - Associated nevus: ??Not id entified. ? - Lymphocytic infiltrate: ?? Present, non-brisk. ? - Margins of punch biopsy sp ecimen: ?- Peripheral margins: ?- Positive for invasiv e melanoma. ?- Invasive melanoma extends to peripheral tissue edge. ?- Positive for melanom a in situ. ?- Melanoma in situ extends to peripheral tissue edge. ?- Deep margin: ?- Negative for invasiv e melanoma. ?- Invasive melanoma present approximately 4.0 mm from deep tissue edge. ? Comment: ? Multiple sections of the biopsy were reviewed. ??The biopsy consists of ? malignant melanoma with a rush perficially invasive component. ??The melanoma is ? transected at the peripheral edges of the punch biopsy specimen. ??(Dr. Mitchell)/luiz ? Microscopic Description: ? Sections consist of a bisected punch biopsy of skin to the deep reticular ?? dermis. ??The epidermis vari es in thickness, with a mildly hyperplastic rete ? ridge pattern in some areas. ??There is a highly cellular compound proliferation of melanocytes that spans th e biopsy specimen. ??The intraepidermal component ? predominates and consists of irregular nests and individual cells. ??Some of the nests are poorly formed and loosely cohesive. ??In many areas, individual cells ?? predominate and are crowded along the dermal-epidermal junction with areas of ?? confluent growth. ??There is focally prominent upward migration of melanocytes ?? into the upper levels of the epidermis, up to and including the granular layer. The proliferation extends in to the epithelium of follicular units. ??The ? melanocytes are enlarged and some are spindle shaped. ??They have high nuclear to ? cytoplasmic ratios with dark irregular nuclei. ??The dermis is expanded by ? fibroplasia. ??At one edge o f the biopsy, there is an invasive component ? consisting of irregular nest s of similar melanocytes. ??No definitive mitotic ? figures are evident. ??There is a patchy lymphomononuclear infiltrate with ? clusters of melanophages. ?? Deeper sections show similar features. ? Immunohistochemical staining was performed on this case to further characterize the lesion. ??Positive and n egative controls stained appropriately. ??( ? Mc/luiz ? Antibody (Clone) ? Result ? Machipongo-1 (Melan-A)(A103 , Lab [facility]) ? Highlights architectural ?? features of melanocytic ?proliferation with well developed ? pagetoid migration ? NOTE: ??One or more of the reagents used in immunohistochemical testing in this case may not have been clear ed or approved by the U.S. Food and Drug ? Administration (FDA). ??The FDA has determined that such clearance or approval is not necessary. ??These tests are used for clinical purposes. ??They should not be regarded as investigational or for research. ??These reagents' ??performance ? characteristics have been de termined by [facility]. ??This ? laboratory is certified unde r the Clinical Laboratory Improvement Amendments of 1988 (CLIA-88) as qualified to perform high complexity clinical laboratory ? testing. ? Document reviewed and electr onically signed by: ? BOBBY L SANJAY MD ? Report ??Date: 05/23/2010 16 :22 ? By the signature above, the attending physician certifies that he/she has ? personally conducted a gross and/or microscopic examination of the described ? specimens and rendered or co nfirmed the above diagnosis. ? Specimen(s) Received: ? Back skin ? Clinical History: ? Nevus ? Gross Description: ? Received in formalin labelled Busby, Dhaval and back ??skin is a ? punch biopsy of rupert sk in measuring 0.4 cm in diameter and 0.4 cm in ? thickness. ??The specimen is bisected and submitted entirely in one cassette. ? /luiz ? End of Report ? Specimen Performing Organization Address City/State/ZIP Code Phon e Number [facility] [address] [place] [address] SERVICES [facility] [address] [place] [address] documented in this encounter Visit Diagnoses Not on filedocumented in this encounter Care Teams Electrocardiograph Repairer Relationship Specialty Start Date End Date Unknown, Provider, PCP - General 05/21/10 documented as of this encounter
--- OUTSIDE RECORDS SUMMARY | 2022-01-05 21:03 | XMS_ITS | Encounter Summary ---
:1950 Author Organization [facility] Address [address] [place] [id number] Care Team Providers Name Role Phone Unavailable Primary Care Provider Unavailable Encounter Details Date Type Department Care Team Description 01/17/2002 Results Only [facility] - Quin Bobby, MAITE conversion [address] [facility] [address] [place] [phone] (Wo rk) Social History Tobacco Use Types Packs/Day Years Used Date Never Assessed Sex Assigned at Date Recorded Not on file documented as of this encounter Plan of Treatment Not on filedocumented as of this encounter Procedures Procedure Name Priority Date/Time Associated Diagnosis Comme nts CYTOPATHOLOGY Routine 01/17/2002 0:00 EDT Results for this procedure are i n the results section . documented in this encounter Results CYTOPATHOLOGY (01/17/2002 0:00 EDT) Pathology Report: CYTOPATHOLOGY REPORT [facility] Reports generated via electronic interface contain alejandro ginal data; however they are lacking the format of the original re port. Caution should be taken when reading/interpreting unfo rmatted reports. Name: ? DHAVAL YEE ? Accession #: ? [id number] : ? 1950 (Age: 51) ??F ?Collect Date: ? 12/21 Location: ? [facility] ? Receive Date : ? 01/19/2002 Provider: ?QUIN GORDON EXTRACTOR PULLER Copy to: ? Specimen/Source: ?ThinPrep Pap Test, Cervix/ Endocervix Last Menstrual Period: ? 06/22 ? SPECIMEN ADEQUACY ? Satisfactory for Evaluation - transformation zone component present GENERAL CATEGORIZATION ? Negative for Intraepithelial Lesion or Malignan cy ? Document reviewed and electronically signed by: ? YOLANDA Warren(ASCP) ? Report Date: ??01/24/2002 11:45 End of Report Specimen Performing Organization Address City/State/ZIP Code Phon e Number [facility] [address] [place] [address] SERVICES [facility] [address] [place] [phone] documented in this encounter Visit Diagnoses Not on filedocumented in this encounter
--- OUTSIDE RECORDS SUMMARY | 2022-01-05 21:03 | XMS_ITS | Encounter Summary ---
:1950 Author Organization [facility] Address [address] [place] [address] Care Team Providers Name Role Phone Unavailable Primary Care Provider Unavailable Encounter Details Date Type Department Care Team Description 05/14/2010 Results Only [facility] Benny Jacques NP Laboratory Services - [address] [place] [address] [address] [facility] [phone] [place] [address] [phone] Social History Tobacco Use Types Packs/Day Years Used Date Never Assessed Sex Assigned at Date Recorded Not on file documented as of this encounter Plan of Treatment Not on filedocumented as of this encounter Procedures Procedure Name Priority Date/Time Associated Diagnosis Comme nts CYTOPATHOLOGY Routine 05/14/2010 0:00 EST Results for this procedure are i n the results section . documented in this encounter Results CYTOPATHOLOGY (05/14/2010 0:00 EST) Pathology Report: CYTOPATHOLOGY REPORT ? [facility] ? LAB Reports generated via [employer] interface contain original data; ? however they are lacking the format of the original report. ? Caution should be taken when reading/interpreting unformatted reports. ? Name: ? DHAVAL YEE Hilaria ? Accession #: ? [id number] ? : ? 1950 (Age: 60) ??F ?Collect Date: ? 05/14/2010 ? Location: ? [facility] ? R eceive Date: ? 05/20/2010 ? Provider: QUIN Orr P ? Copy to: ? Final Report ? SPECIMEN ADEQUACY ? Satisfactory for Eval uation ? - assessment of transformati on zone component not applicable ( e.g. atrophy, ? vaginal sample, hysterectomy ) ? GENERAL CATEGORIZATION ? Negative for Intraepi thelial Lesion or Malignancy ? Last Menstural Period: 2001 ? Hormonal/Contraceptive statu s: Tubal ligation ? Specimen/Source: ??Pap Test, Cervix/Endocervix, ThinPrep Imaging System with ? manual evaluation ? Document reviewed and electr onically signed by: ? Andi Ferguson CT( CP) ? Report ??Date: 11/30/ 2010 11:42 ? HPV with Pap Test ? Date Ordered: ? 1 07/21/2009 ? Status: ?? Signed Out ?Date Complete: ? 05/28/2010 ? By: ??System Interface ? Date Reported: ? 05/28/2010 ? Interpretation ? RESULT: Quantity not suffici ent. ? Comments ? Document reviewed and electr onically signed by: ? System Interface ? Report date: 12/20 10 ? By the signature above, the attending physician certifies that he/she has ? personally conducted a gross and/or microscopic examination of the described ? specimens and rendered or co nfirmed the above diagnosis. ? End of Report ? Specimen Performing Organization Address City/State/ZIP Code Phon e Number [facility] [address] [place] [address] SERVICES [facility] [address] [place] [address] documented in this encounter Visit Diagnoses Not on filedocumented in this encounter
--- OUTSIDE RECORDS SUMMARY | 2022-01-05 21:03 | XMS_ITS | Encounter Summary ---
:1950 Author Organization [facility] Address [address] [place] [address] Care Team Providers Name Role Phone Unavailable Primary Care Provider Unavailable Encounter Details Date Type Department Care Team Description 12/18/1999 Results Only [facility] - Aidee Estrada MD conversion [address] [facility] [address] [place] [phone] Social History Tobacco Use Types Packs/Day Years Used Date Never Assessed Sex Assigned at Date Recorded Not on file documented as of this encounter Plan of Treatment Not on filedocumented as of this encounter Procedures Procedure Name Priority Date/Time Associated Diagnosis Comme nts CYTOPATHOLOGY Routine 12/18/1999 0:00 EDT Results for this procedure are i n the results section . documented in this encounter Results CYTOPATHOLOGY (12/18/1999 0:00 EDT) Pathology Report: CYTOPATHOLOGY REPORT [facility] Reports generated via electronic interface contain alejandro ginal data; however they are lacking the format of the original re port. Caution should be taken when reading/interpreting unfo rmatted reports. Name: ? DHAVAL YEE ? Accession #: ? [id number] : ? 1950 (Age: 49) ??F ?Collect Date: ? 11/21 Location: ? [facility] ? Receive Date : ? 12/20/1999 Provider: ?AIDEE SCHAEFER VIDEO COORDINATOR Copy to: ? Specimen/Source: ?Conventional Pap Test, Cer vix/Endocervix Last Menstrual Period: ? 11/02/99 ? SPECIMEN ADEQUACY ? Satisfactory for evaluation. GENERAL CATEGORIZATION ? Benign Cellular Changes DESCRIPTIVE DIAGNOSIS ? Reactive cellular natasha nges associated with inflammation present (includes repair). ? Document reviewed and electronically signed by: ? ROHIT METZGER MD ? Report Date: ??12/27/1999 15:27 End of Report Specimen Performing Organization Address City/State/ZIP Code Phon e Number [facility] [address] [place] [address] SERVICES [facility] [address] [place] [address] documented in this encounter Visit Diagnoses Not on filedocumented in this encounter
--- OUTSIDE RECORDS SUMMARY | 2022-01-05 21:03 | XMS_ITS | Encounter Summary ---
:1950 Author Organization [facility] Address [address] [place] [address] Care Team Providers Name Role Phone Unavailable Primary Care Provider Unavailable Encounter Details Date Type Department Care Team Description 11/23/[address] [facility] - Quin Bobby, MAITE conversion [address] [phone] (Wo rk) Social History Tobacco Use Types Packs/Day Years Used Date Never Assessed Sex Assigned at Date Recorded Not on file documented as of this encounter Plan of Treatment Not on filedocumented as of this encounter Procedures Procedure Name Priority Date/Time Associated Diagnosis Comme nts CYTOPATHOLOGY Routine 11/23/2000 0:00 EDT Results for this procedure are i n the results section . documented in this encounter Results CYTOPATHOLOGY (11/23/2000 0:00 EDT) Pathology Report: CYTOPATHOLOGY REPORT [facility] Reports generated via electronic interface contain alejandro ginal data; however they are lacking the format of the original re port. Caution should be taken when reading/interpreting unfo rmatted reports. Name: ? DHAVAL YEE ? Accession #: ? [id number] : ? 1950 (Age: 50) ??F ?Collect Date: ? 09/2000 Location: ? [facility] ? Receive Date : ? 11/25/2000 Provider: ?QUIN GORDON OUTSIDE SALES EXECUTIVE Copy to: ? Specimen/Source: ?Conventional Pap Test, Cer vix/Endocervix Last Menstrual Period: ? 09/20 Menstrual/ Status: ? Menorrhagia: Hormonal/Contraceptive Status: ? Provera Treatment History: ? Miscellaneous treatment: Endometrial biopsy ? SPECIMEN ADEQUACY ? Satisfactory for evaluation. GENERAL CATEGORIZATION ? Benign Cellular Changes DESCRIPTIVE DIAGNOSIS ? Atrophy with inflammation (Atrophic Vaginitis). ? Document reviewed and electronically signed by: ? YARIEL JO MD [facility] ? Report Date: ??11/27/2000 18:28 End of Report Specimen Performing Organization Address City/State/ZIP Code Phon e Number [facility] [address] [place] [address] SERVICES [facility] [address] [place] [address] documented in this encounter Visit Diagnoses Not on filedocumented in this encounter
--- OUTSIDE RECORDS SUMMARY | 2022-01-05 21:03 | XMS_ITS | Encounter Summary ---
:1950 Author Organization [facility] Address [address] [place] [address] Care Team Providers Name Role Phone Unknown, Provider Primary Care Provider Encounter Details Date Type Department Care Team Description 07/09/2020 Lab Requisition [facility] Outr Resulting Lab, Pathology & Laboratory Provider [facility] [address] [place] [address] Social History Tobacco Use Types Packs/Day Years Used Date Never Assessed Sex Assigned at Date Recorded Not on file documented as of this encounter Plan of Treatment Not on filedocumented as of this encounter Procedures Procedure Name Priority Date/Time Associated Diagnosis Comme nts COVID-19 TEST [facility] Today 07/08/2020 22:15 LAB PCR EST COVID-19 TESTING Routine 07/08/2020 22:15 Results for this EST procedure are i n the results section. documented in this encounter Results COVID-19 TEST [facility] PCR (07/08/2020 22:15 EST) Specimen Swab - Entire nasopharynx (body structur e) Performing Organization Address City/State/ZIP Code Phon e Number [facility] [address] [place] [address] SERVICES COVID-19 TESTING (07/08/2020 22:15 EST) COVID-19 rt-PCR Negative Negative [facility] Result Comment: [facility] This test has not been FDA c leared or approved. This test has been authorized by FDA under an EUA for use by authorized laboratories. This test has been authorized only for detection of nucleic acid fro SERVICES m 2019-nCoV, not for any oth er viruses or pathogens. This test is only authorized for the duration of the declaration that circumstances exist justifying the authorization of emergency use of in vitro d iagnostic tests for detectio n and/or diagnosis of 2019-nCoV under section 564(b)(1) of Act, 21 U.S.C ?? 360bbb-3(b) (1), unless the authorization is terminated or revoked sooner. Negative results do not prec lude 2019-nCoV infection and should not be used as the sole basis for treatment or other patient management decisions. Negative results must be combined with clinical observa tions, patient history, and epidemiological informatio n. Performed on the Synterventionher Fusion instrument Performing Lab [facility] SERVICES Specimen Swab Performing Organization Address City/State/ZIP Code Phon e Number [facility] [address] [place] [address] SERVICES documented in this encounter Visit Diagnoses Not on filedocumented in this encounter Care Teams Industrial Radiographer Relationship Specialty Start Date End Date Unknown, Provider, PCP - General 05/21/10 documented as of this encounter
[2022-01-05 21:33] VITALS: BP 138/80; PULSE 78; RESP 18; TEMP 36.6; O2SAT 99
== END 2022-01-05 21:30 | disposition home or self-care (01) ==
LOC: ER 20:59
PROVIDERS: Physician Assistant; Emergency Provider Student in an Organized Health Care Education/Training Program; PCP Physician Assistant
DX: E11.649 Type 2 diabetes mellitus with hypoglycemia without coma (principal); N39.0 Urinary tract infection, site not specified; B96.1 Klebsiella pneumoniae [K. pneumoniae] as the cause of diseases classified elsewhere; R42 Dizziness and giddiness
CPT/HCPCS: 36416; 80053; 82962; 83690; 87077; 93005; 99283; 81003; 81015; 85025; 87086; 87186; 93010

== ENCOUNTER 2022-01-20 22:55 | Emergency (ER) | payer MEDICARE, MEDICAID, SELFPAY ==
[2022-01-20 23:02] VITALS: BP 144/81; PULSE 105; RESP 18; TEMP 36.2; O2SAT 96
--- NOTE | 2022-01-20 23:04 | ED.GENADUL_ITS ---
Discharge Plan Disposition Patient Disposition: HOME Condition: Improving Discharge Details Clinical Impression: Blocked urinary catheter, Acute UTI Primary Care Provider: Dean Camilo ED Provider: Bebeto Curtis Home Meds and New Rx's Prescriptions: New cefpodoxime 200 mg tablet 200 mg PO BID 5 Days Qty: 10 0RF Rx Instructions: must administer with a meal/food No Action nystatin 100,000 unit/gram powder 1 applic Topical BID PRN (Reason: itching) Qty: 60 11RF Rx Instructions: Apply to abdominal fold and under breasts. (DME) Depend Underwear For Women S-M Misc 1 ea Miscellaneous TID Qty: 100 12RF Rx Instructions: DEPEND PULL UP FOR WOMEN SIZE LARGE diltiazem HCl 120 mg capsule,extended release 24hr 120 mg PO DAILY Jardiance 10 mg tablet 10 mg PO DAILY insulin lispro [Humalog KwikPen Insulin] 100 unit/mL insulin pen See Rx Instructions SUBCUT QMEALS Label Comments: INJECT 12 UNITS SUBCUTANEOUSLY DIRECTED WITH MEALS Rx Instructions: 12 units in AM and 6 units PM subcutaneously with meals; lisinopril 10 mg Tablet 10 mg PO DAILY insulin glargine [Lantus Solostar U-100 Insulin] 100 unit/mL (3 mL) Insulin Pen 20 unit subcut HS Qty: 15 1RF metoprolol succinate 100 mg tablet extended release 24 hr 100 mg PO DAILY Qty: 0 0RF Xarelto 15 mg Tablet 15 mg PO DAILY atorvastatin 20 mg Tablet 20 mg PO HS Qty: 30 0RF magnesium oxide [MagOx] 400 MG tablet 400 mg PO DAILY Qty: 30 0RF metformin 1,000 mg tablet 1,000 mg PO BID Qty: 60 0RF omeprazole 20 MG capsule,delayed release(DR/EC) 20 mg PO DAILY Qty: 30 0RF furosemide 20 mg tablet 20 mg PO DAILY Qty: 30 0RF Discharge Instructions Instructions: How to Care for Your Suprapubic Catheter (DC) Additional Instructions: Please follow-up with your primary care physician. Please return the emergency department you develop any worsening symptoms such as clogged urinary catheter, dark cloudy or bloody urine, back pain fevers chills nausea vomiting or other abnormal symptoms. Medical Decision Making 71-year-old female history of longstanding suprapubic catheter presents with decreased output out of her urinary catheter. Also feels that she is having overflow urination natively from her urethra. Resulting in some burning in the vaginal region. No discharge or bleeding. Normal external genitalia without signs of bleeding or discharge. Suprapubic catheter stoma clean dry intact, some proteinaceous/calcific deposits within catheter tubing. Slightly cloudy urine. Consider clogged catheter. Will attempt to flush at bedside. If unable to flush will replace at bedside. No systemic signs of illness at this time however given poor compliance with outpatient antibiotics will assess UA for persistent urinary tract infection. Disposition pending results 0: 15 patient resting comfortably no acute distress. Urinary catheter flushed now flowing spontaneously without issue. Evidence of persistent UTI high clinical suspicion for chronic colonization. However given report of intermittent adherence to most recent antibiotic regiment will place on a second regiment. Patient follows up with her HPI General Date/Time Provider Initiated Documentation: 01/20/22 22:55 . HPI Narrative: 71-year-old female history of longstanding suprapubic catheter presents with decreased urine output into catheter bag believes that she is having some urination from her urethra and felt some burning in the vaginal region. No discharge or bleeding. Currently is being treated for UTI however she is not taking her antibiotics as prescribed and still has some leftover. Denies fevers chills nausea vomiting or other systemic symptoms. Is scheduled to have her suprapubic catheter changed early this month as an outpatient. Related Data Home Medications Medication Instructions Recorded Confirmed lisinopril 10 mg tablet 10 mg PO DAILY 05/12/19 01/20/22 diaper,brief,adult,disposable #100 ea 10/31/20 12/17/21 (Depend Underwear For Women Small-Medium) nystatin 100,000 unit/gram topical 1 applic topical BID PRN itching 10/31/20 01/20/22 powder #60 grams insulin glargine 100 unit/mL (3 20 unit (0.2 mL) subcut HS #15 mL 11/27/20 01/20/22 mL) subcutaneous pen (Lantus Solostar U-100 Insulin) metoprolol succinate 100 mg 100 mg PO DAILY #0 tabs 11/27/20 01/20/22 tablet,extended release 24 hr rivaroxaban 15 mg tablet (Xarelto) 15 mg PO DAILY 07/31/21 01/20/22 atorvastatin 20 mg tablet 20 mg PO HS #30 tabs 08/02/21 01/20/22 furosemide 20 mg tablet 20 mg PO DAILY #30 tabs 08/02/21 01/20/22 magnesium oxide 400 mg (241.3 mg 400 mg PO DAILY #30 tabs 08/02/21 01/20/22 magnesium) tablet (MagOx) metformin 1,000 mg tablet 1,000 mg PO BID #60 tabs 08/02/21 01/20/22 omeprazole 20 mg capsule,delayed 20 mg PO DAILY #30 caps 08/02/21 01/20/22 release diltiazem HCl 120 mg 120 mg PO DAILY 10/16/21 01/20/22 capsule,extended release 24 hr empagliflozin 10 mg tablet 10 mg PO DAILY 10/16/21 01/20/22 (Jardiance) insulin lispro 100 unit/mL See Rx Instructions subcut QMEALS 12/17/21 01/20/22 subcutaneous pen (Humalog KwikPen (U-100) Insulin) cefpodoxime 200 mg tablet 200 mg PO BID 5 days #10 tabs 01/21/22 Previous Rx's Medication Instructions Recorded diaper,brief,adult,disposable #100 ea 10/31/20 (Depend Underwear For Women Small-Medium) nystatin 100,000 unit/gram topical 1 applic topical BID PRN itching 10/31/20 powder #60 grams insulin glargine 100 unit/mL (3 20 unit (0.2 mL) subcut HS #15 mL 11/27/20 mL) subcutaneous pen (Lantus Solostar U-100 Insulin) metoprolol succinate 100 mg 100 mg PO DAILY #0 tabs 11/27/20 tablet,extended release 24 hr atorvastatin 20 mg tablet 20 mg PO HS #30 tabs 08/02/21 furosemide 20 mg tablet 20 mg PO DAILY #30 tabs 08/02/21 magnesium oxide 400 mg (241.3 mg 400 mg PO DAILY #30 tabs 08/02/21 magnesium) tablet (MagOx) metformin 1,000 mg tablet 1,000 mg PO BID #60 tabs 08/02/21 omeprazole 20 mg capsule,delayed 20 mg PO DAILY #30 caps 08/02/21 release cefpodoxime 200 mg tablet 200 mg PO BID 5 days #10 tabs 01/21/22 Allergies Allergy/AdvReac Type Severity Reaction Status Date / Time trazodone AdvReac Intermediate NIGHTMARES Verified 01/20/22 23:09 General ARGENIS: 3 Review of Systems Narrative: Review of Systems Constitutional: negative Eyes: negative ENT: negative Cardiovascular: negative Respiratory: negative Gastrointestinal: negative : Decreased output from suprapubic catheter Musculoskeletal: negative Skin: negative Neurologic: negative Psych: negative PFSH All Active Problems (Updated 01/21/22 @ 00:16 by Bebeto Curtis MD) Hypoglycemia (Acute) UTI (urinary tract infection) (Acute) Blocked urinary catheter (Acute) Acute UTI (Acute) Chronic kidney disease (CKD) (Chronic) Diabetic ulcer of left lower leg (Acute) Venous stasis dermatitis (Acute) Decreased activities of daily living (ADL) (Acute) Need for home health care (Acute) Palliative care encounter (Acute) Nephrolithiasis (Chronic) Sacral decubitus ulcer, stage II (Acute) Wound of right lower extremity (Acute) Hyperglycemia (Acute) Trochanteric bursitis, right hip (Acute) Right ankle sprain (Acute) Hip pain, right (Acute) GI bleed (Acute) Fracture, lumbar vertebra, compression (Acute) Multiple rib fractures involving four or more ribs (Acute) PSVT (paroxysmal supraventricular tachycardia) (Acute) Urinary retention (Acute 03/31/16) Poorly controlled diabetes mellitus (Chronic) Transient neurologic deficit (Acute) Fungal dermatitis (Acute) Atrial flutter (Acute) Vaginal bleeding, abnormal (Acute) Atrial fibrillation and flutter (Chronic) Diabetes mellitus type 2 in obese (Acute) Fracture of femoral neck, right (Acute) Retention, urine (Acute) Medical History Anemia Atrial fibrillation Cataracts, bilateral CHF (congestive heart failure) LVEF 50-55%, diastolic dysfunction Diabetes GERD (gastroesophageal reflux disease) H/O menorrhagia Hard of hearing History of traumatic fracture of hip Hx of malignant melanoma Hyperlipidemia Hypertension Pulmonary hypertension S/P right hip fracture Seronegative rheumatoid arthritis Supraventricular tachycardia TIA (transient ischemic attack) Unsteady gait Vision changes Surgical History History of bilateral cataract extraction History of suprapubic catheter Status post right hip replacement Family History Other Diabetes Heart disease Hyperlipidemia Hypertension Stroke Social History Smoking/Tobacco Use Status: Former Tobacco Use Smoking risk assessment performed?: Yes Alcohol Intake: never Drug use: Never Substance use type: does not use Household members: none Do you feel safe at home: Yes Do you feel safe in your relationship?: Yes Additional Social history: Lives alone. [address] Does not drive. Exam Narrative Exam Narrative: Physical Examination General: alert, awake, cooperative, resting comfortably, no acute distress HEENT: normocephalic, atraumatic; PERRL, EOM intact, conjunctiva normal; no nasal discharge; moist mucous membranes, oral and pharyngeal mucosa normal, tolerating secretions Neck: supple, trachea midline; full ROM Chest: normal to inspection Respiratory: normal respiratory effort, speaking in full sentences, clear to auscultation, no wheezing, rales or rhonchi Cardiac: regular rate, regular rhythm, S1S2 intact, no murmurs rubs or gallops GI: abdomen soft, non-tender, non-distended; no palpable mass or hepatosplenomegaly : Suprapubic catheter in place, stoma clean dry intact, normal external genitalia no evidence of bleeding or discharge, cloudy proteinaceous/calcific deposits in catheter tubing Skin: no lesions, rashes or trauma appreciated Neuro: AAOx3, normal speech, moving all extremities Psych: Appropriate mood and affect
[2022-01-20 23:24] LABS: Bilirubin Negative (Negative); Blood Moderate (Negative); Clarity Cloudy (Clear); Glucose 500 mg/dL (Negative); Ketones Negative (Negative); Leukocyte Esterase Small (Negative); Nitrite Positive (Negative); Specific Gravity 1.015 (1.005-1.025); Urobilinogen 0.2 EU/dL (Up TO 0.2)
[2022-01-20 23:33] LABS: C & S Indicated? Yes; WBC >50 HPF (0-5)
--- NOTE | 2022-01-24 09:20 | W.ED.FU ---
Follow Up Plan: Urine culture result from 01/20/2022 noted multidrug resistant ESBL which is usually resistant to cephalosporins. She was given cefpodoxime in on her ED visit on 01/20/22. Called patient at home on number provided and she was advised to stop taking the cefpodoxime. She has no history of antibiotic allergies and no interactions of her medications with ciprofloxacin. We will send a prescription for ciprofloxacin 500 mg twice daily for 7 days to her pharmacy. She has a follow-up appointment with her primary care doctor later this month. Advised to return to the ED with any concerns.
== END 2022-01-21 00:58 | disposition home or self-care (01) ==
LOC: ER 01-21 01:28
PROVIDERS: Emergency Provider Emergency Medicine; PCP Physician Assistant
DX: T83.098A Other mechanical complication of other urinary catheter, initial encounter (principal); N39.0 Urinary tract infection, site not specified; B96.20 Unspecified Escherichia coli [E. coli] as the cause of diseases classified elsewhere; Z16.19 Resistance to other specified beta lactam antibiotics
CPT/HCPCS: 87077; 99283; 81003; 81015; 87086; 87186

== ENCOUNTER 2022-02-04 13:14 | Outpatient (REF) | payer MEDICARE, MEDICAID, SELFPAY | END 2022-02-04 13:15 | disposition home or self-care (01) | LOC: NCHCN 13:14 | PROVIDERS: PCP Physician Assistant; Visit Provider Physician Assistant | DX: N39.0 Urinary tract infection, site not specified (principal) | CPT/HCPCS: 87086 ==

== ENCOUNTER → 2022-03-04 09:24 | Outpatient (BNVA) | payer MEDICARE, MEDICAID, SELFPAY | PROVIDERS: PCP Physician Assistant; Referring Provider Physician Assistant; Visit Provider Nurse Practitioner Gerontology | DX: R33.8 Other retention of urine (principal); R32 Unspecified urinary incontinence | CPT/HCPCS: 51705 ==

== ENCOUNTER → 2022-04-03 09:15 | Outpatient (BNVA) | payer MEDICARE, MEDICAID, SELFPAY | PROVIDERS: PCP Physician Assistant; Referring Provider Physician Assistant; Visit Provider Nurse Practitioner Gerontology | DX: Z46.6 Encounter for fitting and adjustment of urinary device (principal); R33.8 Other retention of urine; L03.116 Cellulitis of left lower limb; E11.9 Type 2 diabetes mellitus without complications; R32 Unspecified urinary incontinence | CPT/HCPCS: 51705; 99214 ==

== ENCOUNTER → 2022-04-30 09:17 | Outpatient (BNVA) | payer MEDICARE, MEDICAID, SELFPAY | PROVIDERS: PCP Physician Assistant; Referring Provider Physician Assistant; Visit Provider Nurse Practitioner Gerontology | DX: R32 Unspecified urinary incontinence; R33.8 Other retention of urine | CPT/HCPCS: 51705 ==

== ENCOUNTER 2022-05-06 13:39 | Outpatient (REF) | payer MEDICARE, MEDICAID, SELFPAY ==
[2022-05-06 15:38] LABS: ALT 15 U/L (14-59); AST 14 U/L (15-37); Albumin 3.7 g/dL (3.4-5.0); Alkaline Phosphatase 53 U/L (46-116); Anion Gap 9.7 mmol/L (3-11); BUN 27 mg/dL (7-18); Bilirubin, Total 0.3 mg/dL (0.2-1.0); CO2 29.3 mmol/L (21.0-32.0); CREATININE 1.3 mg/dL (0.55-1.02); Calcium 9.5 mg/dL (8.5-10.1); Calculated LDL 45 mg/dL (<100); Chloride 98 mmol/L (98-107); Cholesterol 123 mg/dL (<200); Estimated GFR 43.15 (mL/min/1.73m2); Glucose 148 mg/dL (74-106); HDL Cholesterol 62 mg/dL (40-60); Hemoglobin A1C 8.7 % (<5.7); Potassium 4.6 mmol/L (3.5-5.1); Sodium 137 mmol/L (136-145); Total Protein 7.6 g/dL (6.4-8.2); Triglyceride 82 mg/dL (<150)
== END 2022-05-06 13:40 | disposition home or self-care (01) ==
LOC: NCHCN 13:39
PROVIDERS: PCP Physician Assistant; Visit Provider Physician Assistant
DX: E11.8 Type 2 diabetes mellitus with unspecified complications (principal)
CPT/HCPCS: 80053; 80061; 83036

== ENCOUNTER → 2022-05-27 09:22 | Outpatient (BNVA) | payer MEDICARE, MEDICAID, SELFPAY | PROVIDERS: PCP Physician Assistant; Referring Provider Physician Assistant; Visit Provider Urology | DX: Z43.5 Encounter for attention to cystostomy (principal); R33.9 Retention of urine, unspecified | CPT/HCPCS: 99211 ==

== ENCOUNTER → 2022-06-25 09:18 | Outpatient (BNVA) | payer MEDICARE, MEDICAID, SELFPAY | PROVIDERS: PCP Physician Assistant; Referring Provider Physician Assistant; Visit Provider Nurse Practitioner Gerontology | DX: Z43.5 Encounter for attention to cystostomy (principal); R33.9 Retention of urine, unspecified; R32 Unspecified urinary incontinence | CPT/HCPCS: 99212 ==

== ENCOUNTER → 2022-09-23 11:31 | Outpatient (BNVA) | payer MEDICARE, MEDICAID, SELFPAY | PROVIDERS: PCP Physician Assistant; Referring Provider Physician Assistant; Visit Provider Nurse Practitioner Gerontology | DX: Z43.5 Encounter for attention to cystostomy (principal); R33.9 Retention of urine, unspecified | CPT/HCPCS: 99211 ==

== ENCOUNTER → 2022-11-19 09:19 | Outpatient (BNVA) | payer MEDICARE, MEDICAID, SELFPAY | PROVIDERS: PCP Physician Assistant; Visit Provider Nurse Practitioner Gerontology | DX: Z43.5 Encounter for attention to cystostomy (principal); R33.9 Retention of urine, unspecified; R32 Unspecified urinary incontinence | CPT/HCPCS: 99211 ==

== ENCOUNTER → 2022-12-17 09:16 | Outpatient (BNVA) | payer MEDICARE, MEDICAID, SELFPAY | PROVIDERS: PCP Physician Assistant; Visit Provider Nurse Practitioner Gerontology | DX: Z43.5 Encounter for attention to cystostomy (principal); R33.9 Retention of urine, unspecified; R32 Unspecified urinary incontinence | CPT/HCPCS: 99211 ==

== ENCOUNTER 2022-12-30 13:37 | Observation (INO) | payer MEDICARE, MEDICAID, SELFPAY ==
[2022-12-30 13:43] VITALS: BP 99/60; PULSE 114; RESP 20; TEMP 36.9; O2SAT 96
--- NOTE | 2022-12-30 13:45 | RT.EKG_ITS ---
APPROVED REPORT Exam: Resting ECG Reason for Exam: Shortness of breath, dizzy Patient Location: E HR:111 bpm ECG Measurements Heart Rate 111 AXIS VT [id number] P [id number] QRSd 78 QRS 2 QT 329 T 23 QTc 447 Conclusion Atrial fibrillation...V-rate 83-139, irreg A-activity Low voltage, extremity and precordial leads...extremity<0.5mV, precordial<1.0mV A FLUTTER
--- NOTE | 2022-12-30 14:00 | DI.CT_ITS ---
Exam(s) CT HEAD WO EXAM: CT HEAD WO CLINICAL HISTORY: left sided paresthesias. TECHNIQUE: Imaging Protocol: Axial computed tomography images with coronal and sagittal reformatted images were created and reviewed COMPARISON: CT CT HEAD WO from 07/31/2021 FINDINGS: There are no skull fractures. There is no fluid in the visualized paranasal sinuses. There is no evidence of intracranial hemorrhage, mass effect, or shift of midline structures. There are no extra-axial fluid collections. The ventricles are not enlarged or shifted and there is no blo od within the ventricular system nor within the basal cisterns. Again noted is mild periventricular hypodensity consistent with chronic small vessel disease. Also a gain noted is mild asymmetry in the size of the lateral ventricles, unchanged from prior studies. Va scular calcification is again noted in both vertebral arteries at the skull base. IMPRESSION: No acute intracranial findings on this noninfused CT scan of the brain. No significant change from previous study. RADIATION DOSE DELIVERED: 704.72mGy.cm Total DLP DATA REPOSITORY: All CT scans at this facility are submitted to the National Radiology Data Registry (NRDR) Dose Index Registry (DIR) with the [employer] ([employer]). RADIATION OPTIMIZATION: All CT scans at this facility use at least one of these dose optimization te chniques: automated exposure control; mA and/or kV adjustment per patient size (includes targeted exa ms where dose is matched to clinical indication); or iterative reconstruction.
--- NOTE | 2022-12-30 14:15 | DI.RAD_ITS ---
Exam(s) XR PORTABLE CHEST AP EXAM: XR PORTABLE CHEST AP CLINICAL HISTORY: chest pain. TECHNIQUE: 2D digital imaging was performed. COMPARISON: CR,XR XR PORTABLE CHEST AP from 11/25/2020 FINDINGS: Single AP portable view. Heart size is upper normal. The mediastinum is not widened. Multiple healed left-sided rib fractures are noted. No fractures on the right side. Mild increased markings bilaterally are most probably related to suboptimal inspiratory effort. There are no conflu ent infiltrates nor pleural effusions. There is no pneumothorax. IMPRESSION: No acute pulmonary findings on this single AP portable view of the chest. Multiple healed left-sided rib fractures noted. DATA REPOSITORY: RADIATION DOSE DELIVERED:
[2022-12-30] MEDS: Normal Saline 1,000 ML 1000 ML IV (14:25)
[2022-12-30 14:41] LABS: Abs Immature Grans 0.03 10^3/uL (0.0-0.06); Absolute Basophil Count 0.06 10^3/uL (0.0-0.2); Absolute Eosinophil Count 0.12 10^3/uL (0.0-0.7); Absolute Lymphocyte Count 1.44 10^3/uL (1.2-3.4); Absolute Monocyte Count 0.97 10^3/uL (0.1-0.8); Absolute Neutrophil Count 5.32 10^3/uL (1.2-6.7); Basophils % 0.8; Eosinophils % 1.5; HCT 35.8 % (36.0-46.0); HGB 11.2 g/dL (11.2-15.7); Immature Grans % 0.4; Lymphocytes % 18.1; MCHC 31.3 % (32.0-36.0); MCV 83 fL (80-95); MPV 10.6 fL (8.0-11.0); Monocytes % 12.2; Platelet Count 388 10^3/uL (130-400); RDW 16.1 % (11.7-14.6); RDW-SD 48.6 fL; WBC 7.94 10^3/uL (4.4-10.8)
--- NOTE | 2022-12-30 14:45 | DI.MRI_ITS ---
Exam(s) MR BRAIN WO EXAM: MR BRAIN WO CLINICAL HISTORY: left sided paresthesias TECHNIQUE: Multiplanar multisequence MRI of the brain was performed. COMPARISON: CT CT HEAD WO from 07/31/2021 MR MR ANGIO BRAIN WO from 12/30/2022 FINDINGS: CEREBRAL PARENCHYMA: There is no evidence of intracranial hemorrhage, mass effect, or shift of midline structures. There are no extra-axial fluid collections. Ventricles are not enlarged or shifted. There is no significant focal signal abnormality in the cerebellar hemispheres nor within the cristhian, m idbrain, and thalami. Are multiple sub cm patchy FLAIR bright foci of signal abnormality bilateral periventricular white ma tter consistent small vessel disease, not associated with hemorrhage, surrounding edema, nor restrict ed diffusion There is no significant focal signal abnormality evident on diffusion imaging to suggest acute ischem ic event. SWI: No microhemorrhages evident. PITUITARY GLAND: No mass nor parasellar abnormality. No obvious abnormality in the cavernous sinuses. FLOW VOIDS: The expected flow void are noted. No evidence of obvious aneurysm nor obvious vascular ma lformation. PARANASAL SINUSES: The visualized paranasal sinuses appear unremarkable. No obvious finding ORBITS: No obvious findings. IMPRESSION: No acute intracranial findings on this noninfused MRI scan of the brain. Patchy bilateral periventricular signal abnormalities consistent with chronic small vessel ischemic c hanges. No evidence of acute territorial infarct. DATA REPOSITORY:
[2022-12-30 15:08] LABS: ALT 18 U/L (14-59); AST 18 U/L (15-37); Albumin 3.4 g/dL (3.4-5.0); Alkaline Phosphatase 54 U/L (46-116); Anion Gap 10.9 mmol/L (3-11); BUN 28 mg/dL (7-18); Bilirubin, Total 0.4 mg/dL (0.2-1.0); CO2 24.1 mmol/L (21.0-32.0); CREATININE 1.6 mg/dL (0.55-1.02); Calcium 9.2 mg/dL (8.5-10.1); Chloride 102 mmol/L (98-107); Estimated GFR 33.63 (mL/min/1.73m2); Glucose 299 mg/dL (74-106); Potassium 4.2 mmol/L (3.5-5.1); Sodium 137 mmol/L (136-145); TSH 1.03 uIU/mL (0.36-3.74); Total Protein 7.5 g/dL (6.4-8.2); Troponin I < 50 ng/L (<or=60)
--- NOTE | 2022-12-30 15:30 | DI.MRI_ITS ---
Exam(s) MR ANGIO BRAIN WO EXAM: MR ANGIO BRAIN WO CLINICAL HISTORY: left paresthesias TECHNIQUE: Performed on 1.5 vicente unit [id number] technique. COMPARISON: MR MR BRAIN WO from 07/14/2019 FINDINGS: Both internal carotid arteries are patent in the skull base-carotid canals as well as within the cave rnous sinuses. Supraclinoid aspects of these vessels are also patent. Both A1 segments are patent a s are both anterior cerebral arteries. There is no aneurysm at the level of the anterior communicati ng artery nor elsewhere in the plldbf-hy-Rmmiwf. Both middle cerebral arteries are patent without significant stenosis. No aneurysms. Posterior circulation: At the skull base both vertebral arteries exhibit equal luminal diameters in b oth vertebral arteries contribute to the formation of the basilar artery. Basilar artery ascends in the midline with no significant stenosis. Distally the basilar artery gives off patent superior cere bellar arteries and above this level terminates as patent posterior cerebellar arteries. The left P1 segment is hypoplastic. There are posterior communicating arteries noted on both sides of the circl e-of-Garner, larger on the left than the right. There is no aneurysm at the tip of the basilar arter y. IMPRESSION: 1. Patent intracranial arteries. No significant stenosis. 2. No aneurysms evident. DATA REPOSITORY:
--- NOTE | 2022-12-30 15:43 | DI.MRI_ITS ---
Exam(s) MR ANGIO NECK WO EXAM: MRA NECK WITHOUT IV CONTRAST CLINICAL HISTORY: paresthesias left. TECHNIQUE: Performed on 1.5 vicente unit [id number] technique CONTRAST MATERIAL: None COMPARISON: None. FINDINGS: Both common carotid arteries ascend normal luminal diameters. There is no significant stenosis at the carotid bulbs and proximal internal carotid arteries. Both i nternal carotid arteries are also patent in the upper neck. No evidence of significant stenosis nor dissection. Both vertebral arteries are patent and of equal diameters. Both contribute to the formation of the b asilar artery at the skull base. No evidence of vertebral artery thrombosis nor dissection. IMPRESSION: 1. No evidence of significant carotid artery stenosis, thrombosis, nor dissection in the neck 2. No evidence of vertebral artery stenosis, thrombosis, nor dissection. DATA REPOSITORY:
--- NOTE | 2022-12-30 16:22 | W.ED.GENAD ---
Discharge Plan Disposition Patient Disposition: Admit to [facility] Discharge Details Clinical Impression: Atrial fibrillation and flutter, Brain TIA Admit Date/Time: 12/30/22 15:56 Admit Provider: Bebeto Ruggiero Attending Provider: Bebeto Ruggiero Primary Care Provider: Dean Camilo ED Provider: Paola Rajput Discharge Data Discharge Date/Time-TO BE ENTERED AT DEPARTURE: 12/30/22 19:35 Medical Decision Making 72-year-old female with multiple comorbidities presents with left-sided paresthesias Secondary concern for acute stroke I did order CT head which does not show evidence of acute abnormality per radiology interpretation and my review Patient's neurological exam has not changed She was interestingly slightly hypertensive upon arrival, she is in rate controlled atrial fibrillation, her blood pressure stable at time of reassessment Case is discussed with Dr. Myers, neurology and recommendation for MRI and MRA of patient's head and neck I did review patient's prior echocardiogram and vascular studies which do not show evidence of acute abnormality, patient does not endorse dizziness at this time She denies any current chest pain or shortness of breath. She is slightly nauseous. She denies any change in her symptoms other she does report her speech is improved At this time she is pending MRI MRA, case is discussed with Dr. Osborne, he is excepted the patient Recommendation to give high-dose atorvastatin now, aspirin, Xarelto, and telemetry monitoring Patient did receive 324 of aspirin in route via EMS Agreeable to admission at this time pending MRI Confirmed DNR DNI status BUN and creatinine slightly increased, may be some slight dehydration, creatinine typically 1.4 Hyperglycemia, known diabetic, no evidence of diabetic ketoacidosis HPI General Date/Time Provider Initiated Documentation: 12/30/22 14:08. HPI Narrative: This 72-year-old female with multiple comorbidities, CKD, paroxysmal SVT, GI bleed atrial fibrillation, diabetes presents with reports of acute onset of palpitations and left-sided paresthesias which started approximately 1:00 today while patient was standing at the bus stop. She states she had a mild headache. She denies any weakness. She states that her speech is slightly more slurred. She denies any fever or chills. She denies any chest pain and she states that she had strong palpitations. She is chronically anticoagulated received aspirin in route via EMS per patient. She denies any falls or injuries. She denies any difficulty swallowing. She denies any known tick bites or chills. Related Data Home Medications Medication Instructions Recorded Confirmed lisinopril 10 mg tablet 10 mg PO DAILY 05/12/19 12/30/22 nystatin 100,000 unit/gram topical 1 applic topical BID PRN itching 10/31/20 12/30/22 powder #60 grams insulin glargine 100 unit/mL (3 20 unit (0.2 mL) subcut HS #15 mL 11/27/20 12/30/22 mL) subcutaneous pen (Lantus Solostar U-100 Insulin) metoprolol succinate 100 mg 100 mg PO DAILY #0 tabs 11/27/20 12/30/22 tablet,extended release 24 hr rivaroxaban 15 mg tablet (Xarelto) 15 mg PO DAILY 07/31/21 12/30/22 atorvastatin 20 mg tablet 20 mg PO HS #30 tabs 08/02/21 12/30/22 furosemide 20 mg tablet 20 mg PO DAILY #30 tabs 08/02/21 12/30/22 magnesium oxide 400 mg (241.3 mg 400 mg PO DAILY #30 tabs 08/02/21 12/30/22 magnesium) tablet (MagOx) metformin 1,000 mg tablet 1,000 mg PO BID #60 tabs 08/02/21 12/30/22 omeprazole 20 mg capsule,delayed 20 mg PO DAILY #30 caps 08/02/21 12/30/22 release diltiazem HCl 120 mg 120 mg PO DAILY 10/16/21 12/30/22 capsule,extended release 24 hr empagliflozin 10 mg tablet 10 mg PO DAILY 10/16/21 12/30/22 (Jardiance) insulin lispro 100 unit/mL See Rx Instructions subcut QMEALS 12/17/21 12/30/22 subcutaneous pen (Humalog KwikPen (U-100) Insulin) diaper,brief,adult,disposable #100 ea 09/30/22 11/19/22 (Depend Underwear For Women Large) aspirin 81 mg chewable tablet 81 mg PO DAILY #0 tabs 12/31/22 (Children's Aspirin) ciprofloxacin HCl 250 mg tablet 250 mg PO BID #11 tabs 12/31/22 (Cipro) Previous Rx's Medication Instructions Recorded nystatin 100,000 unit/gram topical 1 applic topical BID PRN itching 10/31/20 powder #60 grams insulin glargine 100 unit/mL (3 20 unit (0.2 mL) subcut HS #15 mL 11/27/20 mL) subcutaneous pen (Lantus Solostar U-100 Insulin) metoprolol succinate 100 mg 100 mg PO DAILY #0 tabs 11/27/20 tablet,extended release 24 hr atorvastatin 20 mg tablet 20 mg PO HS #30 tabs 08/02/21 furosemide 20 mg tablet 20 mg PO DAILY #30 tabs 08/02/21 magnesium oxide 400 mg (241.3 mg 400 mg PO DAILY #30 tabs 08/02/21 magnesium) tablet (MagOx) metformin 1,000 mg tablet 1,000 mg PO BID #60 tabs 08/02/21 omeprazole 20 mg capsule,delayed 20 mg PO DAILY #30 caps 08/02/21 release diaper,brief,adult,disposable #100 ea 09/30/22 (Depend Underwear For Women Large) aspirin 81 mg chewable tablet 81 mg PO DAILY #0 tabs 12/31/22 (Children's Aspirin) ciprofloxacin HCl 250 mg tablet 250 mg PO BID #11 tabs 12/31/22 (Cipro) Allergies Allergy/AdvReac Type Severity Reaction Status Date / Time trazodone AdvReac Intermediate NIGHTMARES Verified 12/30/22 13:51 General Stated Complaint: Chest Pain ARGENIS: 3 PFSH All Active Problems (Updated 12/31/22 @ 23:33 by KATHLEEN Curry) Brain TIA (Acute) Vitamin B12 deficiency (Acute) CVA (cerebral vascular accident) (Chronic) Impaired instrumental activities of daily living (Acute) DNR (do not resuscitate) (Acute) Loneliness (Acute) Chronic kidney disease (CKD) (Chronic) Venous stasis dermatitis (Acute) Decreased activities of daily living (ADL) (Acute) Need for home health care (Acute) Palliative care encounter (Acute) Nephrolithiasis (Chronic) Sacral decubitus ulcer, stage II (Acute) Wound of right lower extremity (Acute) Hyperglycemia (Acute) Trochanteric bursitis, right hip (Acute) Right ankle sprain (Acute) Hip pain, right (Acute) GI bleed (Acute) Fracture, lumbar vertebra, compression (Acute) Multiple rib fractures involving four or more ribs (Acute) PSVT (paroxysmal supraventricular tachycardia) (Acute) Urinary retention (Acute 03/31/16) Poorly controlled diabetes mellitus (Chronic) Transient neurologic deficit (Acute) Fungal dermatitis (Acute) Atrial flutter (Acute) Vaginal bleeding, abnormal (Acute) Atrial fibrillation and flutter (Chronic) Diabetes mellitus type 2 in obese (Acute) Fracture of femoral neck, right (Acute) Retention, urine (Acute) Medical History Anemia Atrial fibrillation Cataracts, bilateral CHF (congestive heart failure) LVEF 50-55%, diastolic dysfunction Diabetes Diabetic ulcer of left lower leg GERD (gastroesophageal reflux disease) H/O menorrhagia Hard of hearing History of traumatic fracture of hip Hx of malignant melanoma Hyperlipidemia Hypertension Infestation by bed bug Pulmonary hypertension S/P right hip fracture Seronegative rheumatoid arthritis Supraventricular tachycardia TIA (transient ischemic attack) Unsteady gait Vision changes Surgical History History of bilateral cataract extraction History of suprapubic catheter Status post right hip replacement Family History Other Diabetes Heart disease Hyperlipidemia Hypertension Stroke Social History Smoking/Tobacco Use Status: Former Tobacco Use Smoking risk assessment performed?: Yes Alcohol Intake: never Drug use: Never Substance use type: does not use Household members: none Housing: apartment Do you feel safe at home: Yes Do you feel safe in your relationship?: Yes Additional Social history: Lives alone[address] Does not drive. Course Vital Signs Vital signs: Vital Signs Temperature 36.9 C 12/30/22 13:43 Pulse 114 H 12/30/22 13:43 Respiratory Rate 20 12/30/22 13:43 Blood Pressure 99/60 L 12/30/22 13:43 Pulse Oximetry 96 12/30/22 13:43 Temperature 36.9 C 12/30/22 13:43 Temperature Source Skin 12/30/22 13:43 Pulse 114 H 12/30/22 13:43 Respiratory Rate 20 12/30/22 13:43 Blood Pressure 99/60 L 12/30/22 13:43 Blood Pressure Position Supine 07/11/23 13:43 Pulse Oximetry 96 12/30/22 13:43 Oxygen Delivery Method Room Air 12/30/22 13:43 Oxygen Flow Rate 0 12/30/22 13:43 Pain Level 8 12/30/22 13:43 Lab/Test Results Lab/Test Results: Laboratory Tests Range/Units 12/30/22 12/30/22 14:00 14:00 WBC (4.4-10.8) 10^3/uL 7.94 RBC (3.93-5.22) 10^6/uL 4.30 Hgb (11.2-15.7) g/dL 11.2 Hct (36.0-46.0) % 35.8 L MCV (80-95) fL 83 MCH (27.0-33.0) pg 26.0 L MCHC (32.0-36.0) % 31.3 L RDW (11.7-14.6) % 16.1 H Plt Count (130-400) 10^3/uL 388 MPV (8.0-11.0) fL 10.6 Immature Gran % 0.4 Neutrophils % 67.0 Lymphocytes % 18.1 Monocytes % 12.2 Eosinophils % 1.5 Basophils % 0.8 Nucleated RBC % (0.0-0.3) % 0.0 Absolute Neutrophils (1.2-6.7) 10^3/uL 5.32 Absolute Lymphocytes (1.2-3.4) 10^3/uL 1.44 Absolute Monocytes (0.1-0.8) 10^3/uL 0.97 H Absolute Eosinophils (0.0-0.7) 10^3/uL 0.12 Absolute Basophils (0.0-0.2) 10^3/uL 0.06 Sodium (136-145) mmol/L 137 Potassium (3.5-5.1) mmol/L 4.2 Chloride (98-107) mmol/L 102 Carbon Dioxide (21.0-32.0) mmol/L 24.1 Anion Gap (3-11) mmol/L 10.9 BUN (7-18) mg/dL 28 H Creatinine (0.55-1.02) mg/dL 1.6 H Est GFR (CKD-EPI 2020) (mL/min/1.73m2) 33.63 Glucose (74-106) mg/dL 299 H Calcium (8.5-10.1) mg/dL 9.2 Magnesium (1.8-2.4) mg/dL 2.0 Total Bilirubin (0.2-1.0) mg/dL 0.4 AST (15-37) U/L 18 ALT (14-59) U/L 18 Alkaline Phosphatase (46-116) U/L 54 Troponin I (<or=60) ng/L < 50 Total Protein (6.4-8.2) g/dL 7.5 Albumin (3.4-5.0) g/dL 3.4 TSH (0.36-3.74) uIU/mL 1.03
--- NOTE | 2022-12-30 18:47 | DI.VRAD_ITS ---
PROCEDURE INFORMATION: Exam: MR Head Without Contrast Exam date and time: 12/30/2022 5:51 PM Age: 72 years old Clinical indication: Other: Left sided paresthesias TECHNIQUE: Imaging protocol: Magnetic resonance imaging of the head without contrast. COMPARISON: CT HEAD WO 12/30/2022 2:17 PM FINDINGS: Mildly limited due to motion artifact Brain: No acute infarct. No hemorrhage. Mild white matter disease. No edema. Cerebral ventricles: Normal. No ventriculomegaly. Bones/joints: Unremarkable. Paranasal sinuses: Normal as visualized. No acute sinusitis. Mastoid air cells: Normal as visualized. No mastoid effusion. Orbital cavities: Bilateral lens extractions are noted. Soft tissues: Unremarkable. IMPRESSION: No acute findings. Dictated and Authenticated by: Palmer Jaquez MD. Ordering:PIERRE Guevara MD
--- NOTE | 2022-12-30 18:48 | DI.VRAD_ITS ---
PROCEDURE INFORMATION: Exam: MRA Head Without Contrast; Arteriography Exam date and time: 12/30/2022 5:37 PM Age: 72 years old Clinical indication: Other: Left sided paresthesias TECHNIQUE: Imaging protocol: Magnetic resonance angiography head without contrast. Cczu-[id number]-wqtjmv (TOF) technique was utilized for this exam. Exam focused on the arteries. COMPARISON: MR ANGIO BRAIN WO 07/14/2019 3:57 PM FINDINGS: ANTERIOR CIRCULATION: Right internal carotid artery: Intracranial segment is patent with no significant stenosis. No aneurysm. Right middle cerebral artery: No occlusion or significant stenosis. No aneurysm. Right anterior cerebral artery: No occlusion or significant stenosis. No aneurysm. Left internal carotid artery: Intracranial segment is patent with no significant stenosis. No aneurysm. Left middle cerebral artery: No occlusion or significant stenosis. No aneurysm. Left anterior cerebral artery: No occlusion or significant stenosis. No aneurysm. POSTERIOR CIRCULATION: Right vertebral artery: No occlusion or significant stenosis. No aneurysm. Left vertebral artery: No occlusion or significant stenosis. No aneurysm. Basilar artery: No occlusion or significant stenosis. No aneurysm. Right posterior cerebral artery: No occlusion or significant stenosis. No aneurysm. Left posterior cerebral artery: origin with hypoplasia of the P1 segment, a normal variation No occlusion or significant stenosis. No aneurysm. IMPRESSION: No stenosis or occlusion. Dictated and Authenticated by: Palmer Jaquez MD. Ordering:PIERRE Guevara MD
--- NOTE | 2022-12-30 18:49 | DI.VRAD_ITS ---
PROCEDURE INFORMATION: Exam: MRA Neck Without Contrast Exam date and time: 12/30/2022 5:17 PM Age: 72 years old Clinical indication: Other: Left sided paresthesias TECHNIQUE: Imaging protocol: Magnetic resonance angiography of the neck without contrast. Xfoo-vk-[id number] (TOF) technique was utilized for this exam. COMPARISON: MRA NECK WO 05/19/2017 4:05 PM FINDINGS: Right common carotid artery: No stenosis. No dissection or occlusion. Right internal carotid artery: No stenosis of the extracranial segment. No dissection or occlusion. Right external carotid artery: No stenosis. No dissection or occlusion of the origin. Right vertebral artery: No stenosis. No dissection or occlusion. Left common carotid artery: No stenosis. No dissection or occlusion. Left internal carotid artery: No stenosis of the extracranial segment. No dissection or occlusion. Left external carotid artery: No stenosis. No dissection or occlusion of the origin. Left vertebral artery: No stenosis. No dissection or occlusion. IMPRESSION: No stenosis or occlusion. REFERENCES: NASCET CRITERIA. The degree of stenosis in the cervical segment of the internal carotid artery is based on NASCET criteria. Normal is no stenosis. Mild is less than 50% stenosis. Moderate is 50-69% stenosis. Severe is 70% to 99% stenosis. Total occlusion is no detectable patent lumen. Dictated and Authenticated by: Palmer Jaquez MD. Ordering:PIERRE Guevara MD
[2022-12-30 18:52] VITALS: BP 128/68; PULSE 86; RESP 16; O2SAT 98
[2022-12-30 19:16] LABS: Troponin I < 50 ng/L (<or=60)
--- NOTE | 2022-12-30 19:18 | HPE_ITS ---
Date of service: 12/30/22 Time of Service: 19:18 Assessment and Plan Assessment and plan (1) Chronic kidney disease (CKD): Status: Chronic Assessment and plan: Creatinine 1.6; appears to be mildly higher than baseline. She received 1L NS in ED. Monitor. (2) Atrial fibrillation: Assessment and plan: Ventricular response variablly in the 90's to low 100's. No c/o palpitations or CP. Cont Diltiazem and metoprolol. Cot. Xarelto Telemetry. Qualifiers: Atrial fibrillation type: persistent (not longstanding) Qualified Code(s): I48.19 - Other persistent atrial fibrillation (3) Hyperlipidemia: Assessment and plan: Cont atorvastatin. (4) Hypertension: Assessment and plan: Cont diltiazem and metoprolol Monitor. (5) Multiple rib fractures involving four or more ribs: Status: Acute Assessment and plan: Not acute. No c/o pain. (6) Diabetes mellitus type 2 in obese: Status: Acute Assessment and plan: Cont basal/bolus insulin. Hold metformin. She also states she hasn't had metformin for appx 2 weeks d/t pharmacy issue. Monitor. (7) Sacral decubitus ulcer, stage II: Status: Acute Assessment and plan: History of ulceration that she states opens periodically. Currently using a protective barrier on the area. Nursing to evaluate. (8) Retention, urine: Status: Acute Assessment and plan: Suprapubic catheter; changed at urology office 12/17/22. UA with tr Leuk Est, 10-20 WBCs, many bacteria. Culture pending. Previous Urine Cx on 01/20/22 grew E.Coli resistant to ceftriaxone. Sensitive to cipro. on 01/05/22 grew klebsiella pneum. and Enterococcus faecalis. Both sensitive to cipro. Initiate cipro and monitor current culture. History of Present Illness History of Present Illness Chief Complaint: Left sided parasthesia, palpitations. 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 While standing at the bus stop at appx 1300 on day of admission she noted palpitations and felt numbness sensation of her left side; arm and leg. She also endorsed a mild headache. No weakness of an extremity noted. No F/C, abd pain/N/V. No recent falls. No recent tick bite. ED VS: Temperature ?36.9 C ?12/30/22 13:43 Pulse ?114 H ?12/30/22 13:43 Respiratory Rate ?20 ?12/30/22 13:43 Blood Pressure ?99/60 L ?12/30/22 13:43 Pulse Oximetry ?96 ?12/30/22 13:43 WBC count 7.94. Hgb 11.2. INR 1.1. Lytes normal. BUN 28. Creatinine 1.6. Glucose 299. LFTs normal. TSH 1.03. UA pending. EKG: Afib rate 83-139 CXR: No acute pulmonary findings on this single AP portable view of the chest.Multiple healed left-sided rib fractures noted. CT head w/o acute findings. MR head w/o acute findings. MRA brain w/o stenosis or occlusion. MRA neck w/o stenosis or occlusion. PFSH All Active Problems (Updated 09/30/22 @ 10:57 by Ellen Prince NP) Impaired instrumental activities of daily living (Acute) DNR (do not resuscitate) (Acute) Loneliness (Acute) Chronic kidney disease (CKD) (Chronic) Venous stasis dermatitis (Acute) Decreased activities of daily living (ADL) (Acute) Need for home health care (Acute) Palliative care encounter (Acute) Nephrolithiasis (Chronic) Sacral decubitus ulcer, stage II (Acute) Wound of right lower extremity (Acute) Hyperglycemia (Acute) Trochanteric bursitis, right hip (Acute) Right ankle sprain (Acute) Hip pain, right (Acute) GI bleed (Acute) Fracture, lumbar vertebra, compression (Acute) Multiple rib fractures involving four or more ribs (Acute) PSVT (paroxysmal supraventricular tachycardia) (Acute) Urinary retention (Acute 03/31/16) Poorly controlled diabetes mellitus (Chronic) Transient neurologic deficit (Acute) Fungal dermatitis (Acute) Atrial flutter (Acute) Vaginal bleeding, abnormal (Acute) Atrial fibrillation and flutter (Chronic) Diabetes mellitus type 2 in obese (Acute) Fracture of femoral neck, right (Acute) Retention, urine (Acute) Medical History (Updated 09/30/22 @ 10:57 by Ellen Prince NP) Anemia Atrial fibrillation Cataracts, bilateral CHF (congestive heart failure) LVEF 50-55%, diastolic dysfunction Diabetes Diabetic ulcer of left lower leg GERD (gastroesophageal reflux disease) H/O menorrhagia Hard of hearing History of traumatic fracture of hip Hx of malignant melanoma Hyperlipidemia Hypertension Infestation by bed bug Pulmonary hypertension S/P right hip fracture Seronegative rheumatoid arthritis Supraventricular tachycardia TIA (transient ischemic attack) Unsteady gait Vision changes Surgical History History of bilateral cataract extraction History of suprapubic catheter Status post right hip replacement Family History Other Diabetes Heart disease Hyperlipidemia Hypertension Stroke Social History Smoking/Tobacco Use Status: Former Tobacco Use Smoking risk assessment performed?: Yes Alcohol Intake: never Drug use: Never Substance use type: does not use Household members: none Housing: apartment Do you feel safe at home: Yes Do you feel safe in your relationship?: Yes Additional Social history: Lives alone[address] Does not drive. Meds Allergies and Home Medications Allergies Allergy/AdvReac Type Severity Reaction Status Date / Time trazodone AdvReac Intermediate NIGHTMARES Verified 12/30/22 13:51 Home Medications Medication Instructions Recorded Confirmed Type lisinopril 10 mg tablet 10 mg PO DAILY 05/12/19 12/30/22 History nystatin 100,000 unit/gram topical 1 applic topical BID PRN itching 10/31/20 12/30/22 Rx powder #60 grams insulin glargine 100 unit/mL (3 20 unit (0.2 mL) subcut HS #15 mL 11/27/20 12/30/22 Rx mL) subcutaneous pen (Lantus Solostar U-100 Insulin) metoprolol succinate 100 mg 100 mg PO DAILY #0 tabs 11/27/20 12/30/22 Rx tablet,extended release 24 hr rivaroxaban 15 mg tablet (Xarelto) 15 mg PO DAILY 07/31/21 12/30/22 History atorvastatin 20 mg tablet 20 mg PO HS #30 tabs 08/02/21 12/30/22 Rx furosemide 20 mg tablet 20 mg PO DAILY #30 tabs 08/02/21 12/30/22 Rx magnesium oxide 400 mg (241.3 mg 400 mg PO DAILY #30 tabs 08/02/21 12/30/22 Rx magnesium) tablet (MagOx) metformin 1,000 mg tablet 1,000 mg PO BID #60 tabs 08/02/21 12/30/22 Rx omeprazole 20 mg capsule,delayed 20 mg PO DAILY #30 caps 08/02/21 12/30/22 Rx release diltiazem HCl 120 mg 120 mg PO DAILY 10/16/21 12/30/22 History capsule,extended release 24 hr empagliflozin 10 mg tablet 10 mg PO DAILY 10/16/21 12/30/22 History (Jardiance) insulin lispro 100 unit/mL See Rx Instructions subcut QMEALS 12/17/21 12/30/22 History subcutaneous pen (Humalog KwikPen (U-100) Insulin) diaper,brief,adult,disposable #100 ea 09/30/22 11/19/22 Rx (Depend Underwear For Women Large) Exam Narrative Exam Narrative: Lying in bed. NAD. Conversant and cooperative. Const Nutritional Appearance: obese Orientation: alert and oriented x3 HENMT Head: normocephalic and atraumatic Ears: hearing grossly abnormal bilaterally (mild diminished acuity) Eyes General: appearance normal, both eyes and all related structures Sclera: sclerae normal Resp Effort & Inspection: normal respiratory effort Auscultation: clear to auscultation bilaterally Cardio Rate: tachycardic Rhythm: abnormal rhythm irregularly irregular GI Palpation: soft Auscultation: normal bowel sounds Skin General skin exam: no rashes or lesions noted Neuro General: abnormal to light touch, pain or propio. (diminished on left; face/arm/leg.) and no focal motor deficits Cranial Nerves: facial strength normal Cognition: normal cognition Speech: expressive aphasia (pauses. States she has difficulty at times finding words.) and other (dysarthric. She endorses intermittent chronic slurring. ) Motor: strength 5/5 throughout Results Labs 12/30/22 14:00 12/30/22 14:00 Labs: Laboratory Results - last 24 hr 12/30/22 12/30/22 14:00 14:00 WBC 7.94 RBC 4.30 Hgb 11.2 Hct 35.8 L MCV 83 MCH 26.0 L MCHC 31.3 L RDW 16.1 H Plt Count 388 MPV 10.6 Immature Gran % 0.4 Neutrophils % 67.0 Lymphocytes % 18.1 Monocytes % 12.2 Eosinophils % 1.5 Basophils % 0.8 Nucleated RBC % 0.0 Absolute Neutrophils 5.32 Absolute Lymphocytes 1.44 Absolute Monocytes 0.97 H Absolute Eosinophils 0.12 Absolute Basophils 0.06 Sodium 137 Potassium 4.2 Chloride 102 Carbon Dioxide 24.1 Anion Gap 10.9 BUN 28 H Creatinine 1.6 H Est GFR (CKD-EPI 2020) 33.63 Glucose 299 H Calcium 9.2 Magnesium 2.0 Total Bilirubin 0.4 AST 18 ALT 18 Alkaline Phosphatase 54 Troponin I < 50 Total Protein 7.5 Albumin 3.4 TSH 1.03 Last Vital Signs Temp 36.9 C 12/30/22 13:43 Pulse 86 12/30/22 18:52 Resp 16 12/30/22 18:52 BP 128/68 12/30/22 18:52 Pulse Ox 98 12/30/22 18:52 Time Spent Time spent with Patient: 40-54 minutes Time was spent: preparing to see the patient(eg.review tests), obtaining and/or reviewing separately otained hiistory, ordering medications,tests, procedures, referring, communicating with other health sub acute care nurse, indepentently i nterpreting results and counseling the patient
[2022-12-30 21:00] VITALS: BP 138/80; PULSE 95; RESP 16; TEMP 36; O2SAT 96
[2022-12-30] MEDS: Atorvastatin 20 MG TAB PO (21:21)
[2022-12-30] MEDS: Rivaroxaban 15 MG TABLET PO (21:21)
[2022-12-30 22:06] LABS: Bilirubin Negative (Negative); Blood Trace-intact (Negative); Clarity Clear (Clear); Glucose >=1000 mg/dL (Negative); Ketones Negative (Negative); Leukocyte Esterase Trace (Negative); Nitrite Negative (Negative); Specific Gravity 1.015 (1.005-1.025); Urobilinogen 0.2 mg/dL (Up to 0.2)
[2022-12-30 22:15] VITALS: PULSE 105
[2022-12-30] MEDS: Insulin Glargine 300 UNITS/3 ML PEN 20 UNITS SC (22:15)
[2022-12-30 22:25] LABS: Bacteria Many HPF (Negative); C & S Indicated? Yes; Crystals Negative HPF (Negative); Epithelial Cells Rare HPF (Negative); Mucus Negative (Negative); RBC 0-2 HPF (0-2)
[2022-12-30 23:20] VITALS: BP 126/70; PULSE 84; RESP 16; TEMP 36.6; O2SAT 98
[2022-12-31 07:00] VITALS: PULSE 94
[2022-12-31 07:41] LABS: Anion Gap 9.1 mmol/L (3-11); BUN 22 mg/dL (7-18); CO2 25.9 mmol/L (21.0-32.0); CREATININE 1.2 mg/dL (0.55-1.02); Calcium 9.2 mg/dL (8.5-10.1); Chloride 107 mmol/L (98-107); Glucose 100 mg/dL (74-106); Sodium 142 mmol/L (136-145)
[2022-12-31 07:49] VITALS: BP 119/67; PULSE 93; RESP 16; TEMP 36.7; O2SAT 97
[2022-12-31] MEDS: Magnesium Oxide 400 MG TAB PO (08:19)
[2022-12-31] MEDS: Furosemide 20 MG TAB PO (08:20)
[2022-12-31] MEDS: Empaglifozin 10 MG TAB PO (08:20)
[2022-12-31] MEDS: dilTIAZem CD 120 MG CAPCR PO (08:20)
[2022-12-31] MEDS: Metoprolol CR 100 MG TABCR PO (08:20)
[2022-12-31] MEDS: Omeprazole 20 MG CAPCR PO (08:20)
[2022-12-31] MEDS: CIPROFLOXACIN 200 MG/100 ML BAG 100 MG IVPB (08:59)
--- NOTE | 2022-12-31 09:49 | PDOC.CMIN ---
Date of service: 12/31/22 Time of Service: 09:49 Care Management Initial Assmt Initial Assessment REASON FOR HOSPITALIZATION:: palpitations, left sided paresthesia PREVIOUS FUNCTIONAL STATUS/SOCIAL/FAMILY SUPPORTS:: Hope lives alone in the [address] in [facility]. She has a ed case manager, Zoey Noyola, through [place] [facility] [employer], who supports her in the community. She also has support from [facility] and [facility] and has CF moderate needs. She is independent at baseline, and uses a cane. CURRENT FUNCTIONAL STATUS:: Hope was sitting up in bed when CM met with her. She was open and friendly and engaged well with CM. Hope shared that although she has CFC moderate needs, she is not currently receiving any services. She stated that she was told by her lead case manager, Zoey Noyola with [facility], that they did not have the staffing or money to provide her with the homemaker supports or home health services she had before. Hope stated that she is managing, but really needs the extra help. At discharge, the provider will place new orders for home health services for nursing and PT. CM also contacted her ed case manager at [facility] to inquire if any additional services would be available through her [facility] benefit. ADVANCE DIRECTIVES:: Katharina GAINES Has patient been provided with info about the portal/API?: Yes Did the patient sign up for the portal?: No CODE STATUS:: DNR/DNI INSURANCE COVERAGE / FINANCIAL ISSUES:: [facility] Medicare Replacement Plan CURRENT HOME/COMMUNITY SERVICES/EQUIPMENT:: RCT, Cane, Walker, [facility] Moderate needs, COA, MOW, [facility]. Case management with Zoey Noyola from [facility] PRIMARY CARE PHYSICIAN:: Dean Camilo POTENTIAL DISCHARGE NEEDS:: follow up with PCP and plan of care PATIENT/FAMILY EDUCATION NEEDS:: Review of discharge instructions, limitations, medications, follow up plan, Ask Me Three TRANSPORTATION:: via RCT coordinated by CM PLAN:: Anticipate Hope will return home when medically cleared with a resumption of community supports. She will be driven home via private vehicle RCT, coordinated by . She will follow up with her PCP and discharge plan of care. CM will continue to support Hope and her discharge needs. PFSH All Active Problems (Updated 12/31/22 @ 13:20 by Bebeto Ruggiero MD) CVA (cerebral vascular accident) (Chronic) Impaired instrumental activities of daily living (Acute) DNR (do not resuscitate) (Acute) Loneliness (Acute) Chronic kidney disease (CKD) (Chronic) Venous stasis dermatitis (Acute) Decreased activities of daily living (ADL) (Acute) Need for home health care (Acute) Palliative care encounter (Acute) Nephrolithiasis (Chronic) Sacral decubitus ulcer, stage II (Acute) Wound of right lower extremity (Acute) Hyperglycemia (Acute) Trochanteric bursitis, right hip (Acute) Right ankle sprain (Acute) Hip pain, right (Acute) GI bleed (Acute) Fracture, lumbar vertebra, compression (Acute) Multiple rib fractures involving four or more ribs (Acute) PSVT (paroxysmal supraventricular tachycardia) (Acute) Urinary retention (Acute 03/31/16) Poorly controlled diabetes mellitus (Chronic) Transient neurologic deficit (Acute) Fungal dermatitis (Acute) Atrial flutter (Acute) Vaginal bleeding, abnormal (Acute) Atrial fibrillation and flutter (Chronic) Diabetes mellitus type 2 in obese (Acute) Fracture of femoral neck, right (Acute) Retention, urine (Acute) Medical History Anemia Atrial fibrillation Cataracts, bilateral CHF (congestive heart failure) LVEF 50-55%, diastolic dysfunction Diabetes Diabetic ulcer of left lower leg GERD (gastroesophageal reflux disease) H/O menorrhagia Hard of hearing History of traumatic fracture of hip Hx of malignant melanoma Hyperlipidemia Hypertension Infestation by bed bug Pulmonary hypertension S/P right hip fracture Seronegative rheumatoid arthritis Supraventricular tachycardia TIA (transient ischemic attack) Unsteady gait Vision changes Surgical History History of bilateral cataract extraction History of suprapubic catheter Status post right hip replacement Family History Other Diabetes Heart disease Hyperlipidemia Hypertension Stroke Social History Smoking/Tobacco Use Status: Former Tobacco Use Smoking risk assessment performed?: Yes Alcohol Intake: never Drug use: Never Substance use type: does not use Household members: none Housing: apartment Do you feel safe at home: Yes Do you feel safe in your relationship?: Yes Additional Social history: Lives alone. [address] Does not drive.
[2022-12-31 11:14] LABS: Lab Add On Test DONE
[2022-12-31 11:29] LABS: Hemoglobin A1C 10.1 % (<5.7)
[2022-12-31 11:32] VITALS: BP 106/68; PULSE 84; RESP 17; TEMP 36.9; O2SAT 97
[2022-12-31] MEDS: Insulin Aspart 300 UNITS/3 ML PEN SC (11:35)
[2022-12-31] MEDS: Insulin Aspart 300 UNITS/3 ML PEN 12 UNITS SC (11:35)
[2022-12-31 11:46] LABS: Calculated LDL 65 mg/dL (<100); Cholesterol 139 mg/dL (<200); HDL Cholesterol 63 mg/dL (40-60); Triglyceride 58 mg/dL (<150)
[2022-12-31 11:54] LABS: Vitamin B12 199 pg/mL (193-986)
--- NOTE | 2022-12-31 12:52 | W.NEUROCONSU ---
Date of service: 12/31/22 Time of Service: 12:53 Assessment and Plan Assessment and plan (1) CVA (cerebral vascular accident): Status: Chronic (2) Vitamin B12 deficiency: Status: Acute Assessment and plan: Ms. Busby presents with acute onset L hemisensory loss secondary to acute ischemic stroke. Though the brain MRI shows no acute findings, I suspect that she may have had a small R brainstem (above the mid-cristhian) vs thalamic stroke between slices. I discussed this with her. Most likely etiology of stroke is due to small vessel disease, complicated by her poorly controlled DM. She should continue aspirin 81mg daily in addition to Xarelto for secondary stroke prevention along with statin therapy. Goal LDL <70. Goal SBP 120-140. Goal A1c <7. Agree with PT/OT. She otherwise has low B12. Recommend PO 1000mcg daily supplement. She should follow-up in neurology clinic in 4-6 weeks. History of Present Illness History of Present Illness Chief Complaint: left body numbness Narrative: Handedness: LEFT. HPI: Ms. Busby is a 72 year-old with hypertension, hyperlipidemia, poorly-controlled DM, atrial fibrillation/aflutter on Xarelto 15mg daily, paroxysmal SVT, CHF, urinary retention s/p suprapubic catheter, prior GI bleed, sacral decubitus ulcer, and cataracts.? Yesterday afternoon while waiting for the base, Ms. Busby noted acute onset numbness of the left face, arm, and leg. There was a question of associated dysarthria, but she notes waxing/waning dysarthria of some duration. She had a mild SMITH at that time which has resolved. She notes persistent numbness today though with perhaps some improvement in the leg. She was seen previously here in Jun 2019 for presumed TIA with L hemibody numbness/weakness. Aspirin was added to Xarelto at that time for secondary stroke prevention. She had a GI bleed in Jun 2021 at which time ASA + Xarelto were held. But both were re-started. It appears aspirin fell off her medication list between Jul and September 2021. She is not sure why. She has undergone the work-up as below. Work-up: -MRI brain w/o (12/30/22): No acute findings. Mild-moderate atrophy and chronic vascular changes. L ventricle larger than the right. I reviewed these images personally and this is my personal interpretation. -MRA head/neck (12/30/22): unremarkable. I reviewed these images personally and this is my personal interpretation. -B12 199, A1c 10.1, LDL 65 Review of Systems All systems reviewed & are unremarkable except as noted in HPI and below PFSH All Active Problems (Updated 12/31/22 @ 14:24 by Alcira Myers MD) Vitamin B12 deficiency (Acute) CVA (cerebral vascular accident) (Chronic) Impaired instrumental activities of daily living (Acute) DNR (do not resuscitate) (Acute) Loneliness (Acute) Chronic kidney disease (CKD) (Chronic) Venous stasis dermatitis (Acute) Decreased activities of daily living (ADL) (Acute) Need for home health care (Acute) Palliative care encounter (Acute) Nephrolithiasis (Chronic) Sacral decubitus ulcer, stage II (Acute) Wound of right lower extremity (Acute) Hyperglycemia (Acute) Trochanteric bursitis, right hip (Acute) Right ankle sprain (Acute) Hip pain, right (Acute) GI bleed (Acute) Fracture, lumbar vertebra, compression (Acute) Multiple rib fractures involving four or more ribs (Acute) PSVT (paroxysmal supraventricular tachycardia) (Acute) Urinary retention (Acute 03/31/16) Poorly controlled diabetes mellitus (Chronic) Transient neurologic deficit (Acute) Fungal dermatitis (Acute) Atrial flutter (Acute) Vaginal bleeding, abnormal (Acute) Atrial fibrillation and flutter (Chronic) Diabetes mellitus type 2 in obese (Acute) Fracture of femoral neck, right (Acute) Retention, urine (Acute) Medical History Anemia Atrial fibrillation Cataracts, bilateral CHF (congestive heart failure) LVEF 50-55%, diastolic dysfunction Diabetes Diabetic ulcer of left lower leg GERD (gastroesophageal reflux disease) H/O menorrhagia Hard of hearing History of traumatic fracture of hip Hx of malignant melanoma Hyperlipidemia Hypertension Infestation by bed bug Pulmonary hypertension S/P right hip fracture Seronegative rheumatoid arthritis Supraventricular tachycardia TIA (transient ischemic attack) Unsteady gait Vision changes Surgical History History of bilateral cataract extraction History of suprapubic catheter Status post right hip replacement Family History Other Diabetes Heart disease Hyperlipidemia Hypertension Stroke Social History Smoking/Tobacco Use Status: Former Tobacco Use Smoking risk assessment performed?: Yes Alcohol Intake: never Drug use: Never Substance use type: does not use Household members: none Housing: apartment Do you feel safe at home: Yes Do you feel safe in your relationship?: Yes Additional Social history: Lives alone. [address] Does not [address]. Visit Medication and Allergies Active Medications Generic Name Dose Route Start Last Admin Trade Name Freq PRN Reason Stop Dose Admin Acetaminophen 0 mg 12/30/22 16:01 Acetaminophen 325 Mg Tab PO Q4H PRN PRN Al Hydrox/Mg Hydrox/Simethicone 30 ml 12/30/22 16:01 Mylanta Suspension 30 Ml Cup PO Q2H PRN PRN Aspirin 81 mg 01/01/23 08:30 Aspirin 81 Mg Chew PO DAILY DANNI Atorvastatin Calcium 20 mg 12/30/22 22:00 12/30/22 21:21 Atorvastatin 20 Mg Tab PO 20 mg HS DANNI Administration Dextrose 0 gm 12/30/22 19:48 Glucose Oral Gel 15 Gm/37.5 Gm Tube PO DIRECTED PRN Dextrose/Water 0 gm 12/30/22 19:48 Dextrose 50%-Water 25 Gm/50 Ml Syr IVP DIRECTED PRN Diltiazem HCl 120 mg 12/31/22 08:30 12/31/22 08:20 Diltiazem Cd 120 Mg Capcr PO 120 mg DAILY DANNI Administration Dimethicone/Zinc Oxide 0 gm 12/30/22 15:56 Carol Protect Cream 142 Gm Tube TP PRN PRN Empagliflozin 10 mg 12/31/22 08:30 12/31/22 08:20 Empaglifozin 10 Mg Tab PO 10 mg DAILY DANNI Administration Furosemide 20 mg 12/31/22 08:30 12/31/22 08:20 Furosemide 20 Mg Tab PO 20 mg DAILY DANNI Administration Ciprofloxacin 200 mg in 100 mls @ 100 mls/hr 12/31/22 08:00 12/31/22 08:59 Cipro I.V. IVPB 100 mls/hr Q12H DANNI Administration Insulin Aspart 0 units 12/31/22 08:00 12/31/22 11:35 Insulin Aspart 300 Units/3 Ml Pen SC 3 unit 0800,1200,1700 [facility] Administration Protocol Insulin Aspart 12 units 12/31/22 11:00 12/31/22 11:35 Insulin Aspart 300 Units/3 Ml Pen SC 12 unit 1100 [facility] Administration Insulin Aspart 6 units 12/31/22 17:00 Insulin Aspart 300 Units/3 Ml Pen SC 1700 [facility] Insulin Glargine 20 units 12/30/22 22:00 12/30/22 22:15 Insulin Glargine 300 Units/3 Ml Pen SC 20 units HS [facility] Administration Magnesium Oxide 400 mg 12/31/22 08:30 12/31/22 08:19 Magnesium Oxide 400 Mg Tab PO 400 mg DAILY [facility] Administration Metoprolol Succinate 100 mg 12/31/22 08:30 12/31/22 08:20 Metoprolol Cr 100 Mg Tabcr PO 100 mg DAILY [facility] Administration Nystatin 0 gm 12/30/22 16:01 Nystatin Powder 15 Gm Jar TP BID PRN PRN itching Omeprazole 20 mg 12/31/22 07:30 12/31/22 08:20 Omeprazole 20 Mg Capcr PO 20 mg DAILY@0730 [facility] Administration Polyethylene Glycol 17 gm 12/30/22 16:01 Polyethylene Glycol 3350 17 Gm Packet PO DAILY PRN PRN Constipation Rivaroxaban 15 mg 12/30/22 17:00 12/30/22 21:22 Rivaroxaban 15 Mg Tablet PO Not Given DAILY@1700 [facility] Allergies trazodone Adverse Reaction (Intermediate, Verified 12/30/22 13:51) [place] Exam Narrative Exam Narrative: Physical Exam: Gen: Patient of apparent stated age, NAD Head and face: no facial or cranial abnormalities Neck: Supple, no meningismus, no occipital tenderness CV: + S1, S2, RRR, no murmur Resp: CTA B/L Abd: soft, nontender, nondistended Ext: No edema. No clubbing or cyanosis. No bony deformity. Neuro Exam: Language: fluency, naming, repetition, and comprehension intact; Mental Status: AAOx3, current events intact, fund of knowledge intact; Speech: no dysarthria Cranial nerves: Funduscopy: not performed CN II: visual michel intact CN III, IV, : extraocular movements intact, no nystagmus, pupils symmetric and reactive to light CN V: reduced PP L V1-V3 CN VII: no facial asymmetry noted CN VIII: hearing intact bilaterally CN IX, X: palate rises symmetrically CN XI: trapezius/SCM 5/5 bilaterally CN XII: protrudes tongue symmetrically Sensory: reduced PP in L arm and L leg Motor: bulk and tone intact. Fine motor movements intact bilaterally. No pronator drift. Strength 5/5 throughout the UE and 4++/5 bilateral LE. Reflexes: hyporeflexic throughout with absent ankle reflexes; toes neutral bilaterally; Coordination: FTN and HTS intact bilaterally Gait: not seen Results Last Vital Signs Temp 98.5 F 12/31/22 11:32 Pulse 84 12/31/22 11:32 Resp 17 12/31/22 11:32 BP 106/68 12/31/22 11:32 Pulse Ox 97 12/31/22 11:32 Labs 12/30/22 14:00 12/31/22 07:00 Labs: Laboratory Results - last 24 hr 12/30/22 12/30/22 12/30/22 14:00 14:00 14:00 WBC 7.94 RBC 4.30 Hgb 11.2 Hct 35.8 L MCV 83 MCH 26.0 L MCHC 31.3 L RDW 16.1 H Plt Count 388 MPV 10.6 Immature Gran % 0.4 Neutrophils % 67.0 Lymphocytes % 18.1 Monocytes % 12.2 Eosinophils % 1.5 Basophils % 0.8 Nucleated RBC % 0.0 Absolute Neutrophils 5.32 Absolute Lymphocytes 1.44 Absolute Monocytes 0.97 H Absolute Eosinophils 0.12 Absolute Basophils 0.06 Sodium 137 Potassium 4.2 Chloride 102 Carbon Dioxide 24.1 Anion Gap 10.9 BUN 28 H Creatinine 1.6 H Est GFR (CKD-EPI 2020) 33.63 Glucose 299 H Hemoglobin A1c 10.1 H Calcium 9.2 Magnesium 2.0 Total Bilirubin 0.4 AST 18 ALT 18 Alkaline Phosphatase 54 Troponin I < 50 Total Protein 7.5 Albumin 3.4 Triglycerides Total Cholesterol LDL Cholesterol, Calc HDL Cholesterol Vitamin B12 TSH 1.03 Urine Color Urine Clarity Urine pH Ur Specific [place] Urine Protein Urine Ketones Urine Blood Urine Nitrite Urine Bilirubin Urine Urobilinogen Ur Leukocyte Esterase Urine RBC Urine WBC Ur Epithelial Cells Urine Crystals Urine Bacteria Urine Mucus Ur Culture Indicated? Urine Glucose Add-On Test Request 12/30/22 12/30/22 12/30/22 14:00 18:47 21:30 WBC RBC Hgb Hct MCV MCH MCHC RDW Plt Count MPV Immature Gran % Neutrophils % Lymphocytes % Monocytes % Eosinophils % Basophils % Nucleated RBC % Absolute Neutrophils Absolute Lymphocytes Absolute Monocytes Absolute Eosinophils Absolute Basophils Sodium Potassium Chloride Carbon Dioxide Anion Gap BUN Creatinine Est GFR (CKD-EPI 2020) Glucose Hemoglobin A1c Calcium Magnesium Total Bilirubin AST ALT Alkaline Phosphatase Troponin I < 50 Total Protein Albumin Triglycerides Total Cholesterol LDL Cholesterol, Calc HDL Cholesterol Vitamin B12 199 TSH Urine Color Yellow Urine Clarity Clear Urine pH 7.0 Ur Specific [place] 1.015 Urine Protein Trace H Urine Ketones Negative Urine Blood Trace-intact H Urine Nitrite Negative Urine Bilirubin Negative Urine Urobilinogen 0.2 Ur Leukocyte Esterase Trace H Urine RBC 0-2 Urine WBC 10-20 H Ur Epithelial Cells Rare Urine Crystals Negative Urine Bacteria Many Urine Mucus Negative Ur Culture Indicated? Yes Urine Glucose >=1000 H Add-On Test Request 12/31/22 12/31/22 12/31/22 07:00 07:00 07:00 WBC RBC Hgb Hct MCV MCH MCHC RDW Plt Count MPV Immature Gran % Neutrophils % Lymphocytes % Monocytes % Eosinophils % Basophils % Nucleated RBC % Absolute Neutrophils Absolute Lymphocytes Absolute Monocytes Absolute Eosinophils Absolute Basophils Sodium 142 Potassium 4.0 Chloride 107 Carbon Dioxide 25.9 Anion Gap 9.1 BUN 22 H Creatinine 1.2 H Est GFR (CKD-EPI 2020) 47.50 Glucose 100 Hemoglobin A1c Calcium 9.2 Magnesium Total Bilirubin AST ALT Alkaline Phosphatase Troponin I Total Protein Albumin Triglycerides 58 Total Cholesterol 139 LDL Cholesterol, Calc 65 HDL Cholesterol 63 Vitamin B12 TSH Urine Color Urine Clarity Urine pH Ur Specific [place] Urine Protein Urine Ketones Urine Blood Urine Nitrite Urine Bilirubin Urine Urobilinogen Ur Leukocyte Esterase Urine RBC Urine WBC Ur Epithelial Cells Urine Crystals Urine Bacteria Urine Mucus Ur Culture Indicated? Urine Glucose Add-On Test Request DONE
--- NOTE | 2022-12-31 13:02 | PDOC.HHF2F ---
Home Health Referral Home Health Orders Clinical synopsis of why skilled professionals are needed: Clinically experienced a small brainstem CVA with symptom of parasthesia of the left side / face, arm and leg. MRI negative. Medical diagnosis necessitation home health referral: CVA clinically. Registered Nurse: Check all that apply Instruct on new or changed medication(s)/assess compliance: Ordered Assess for exacerbation of medical condition, instruct patient/caregivers on signs and symptoms to report for early detection: Ordered Physical Therapist: Check all that apply Increase strength & endurance for safe mobility at home: Ordered Home Bound Status Assistance of another person (Describe assistance and medical necessity): Altered sensation of left face/arm/leg. Leg involved concerning for gait instability and need for standby assistance when outside of her home. Describe why leaving home would require a considerable and taxing effort: Requires frequent rest periods Encounter Date and Reason: I certify that a FTF encounter for this patient was performed on December 31, 2022 and that such encounter was related to the primary reason the patient requires home health services. The encounter was conducted in the following manner: By me as the certifying physician, SHOE REPAIRER HELPER, PA or By an inpatient physician, SHOE REPAIRER HELPER or PA during an inpatient stay who communicated findings to me, Certification And Authentication I certify that I composed the above information based on my clinical judgment relating to this patient's medical condition and, if applicable, clinical findings communicated to me by the NPP or inpatient physician who performed the FTF encounter. Name of Provider that will be monitoring home health services: Bebeto Ruggiero
--- NOTE | 2022-12-31 13:05 | DSE_ITS ---
Date of service: 12/31/22 Time of Service: 13:06 DS: Diagnosis Discharge Diagnosis (1) CVA (cerebral vascular accident): Status: Chronic Asessment and Plan: Presented with left facial/arm/leg parasthesia. Decreased sensation to touch. Numb sensation. No motor deficits. CT head, MRI brain, MRA brain and neck all negative for acute findings. Dr Myers consulte / Neurology. Recommends staring aspirin 81mg daily given this is likely a small brainstem CVA. Also encouraged her to optimize her glucose control. (2) Urinary tract infection: Status: Resolved Asessment and Plan: Has chronic indwelling hodge catheter last changed by urology on 12/17/22. Changed during this stay Cipro 200mg IV BID initiated. Home on 250mg po BID for 5 days. (3) Chronic kidney disease (CKD): Status: Chronic Asessment and Plan: Presented with creatinine 1.6 which is above her typical baseline. Improved back to 1.2. (4) Atrial fibrillation: Asessment and Plan: Controlled rate Cont diltiazem, metoprolol and rivaroxaban. (5) Hyperlipidemia: Asessment and Plan: On atorvastatin 20mg daily. LDL cholesterol 65 (6) Hypertension: Asessment and Plan: Cont lisinopril, metoprolol and diltiazem (7) Multiple rib fractures involving four or more ribs: Status: Acute Asessment and Plan: Not acute. No current pain. (8) Diabetes mellitus type 2 in obese: Status: Acute Asessment and Plan: Cont basal/bolus insulin, jardiance and metformin A1c 10.1. Discuss with PCP. Encouraged better control. (9) Sacral decubitus ulcer, stage II: Status: Acute Asessment and Plan: Not currently open. She stated it comes and goes. Cont using protective barrier. (10) Retention, urine: Status: Acute Asessment and Plan: Supprapuci catheter. Changed. 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 [place] the bus stop [place] appx 1300 on day of admission she noted palpitations and felt numbness sensation of her left side; arm and leg.? She also endorsed a mild headache.? No weakness of an extremity noted.? No F/C, abd pain/N/V.? No recent falls.? No recent tick bite. ED VS: Temperature ?36.9 CC ?12/30/22 13:43 Pulse ?114 H ?12/30/22 13:43 Respiratory Rate ?20 ?12/30/22 13:43 Blood Pressure ?99/60 L ?12/30/22 13:43 Pulse Oximetry ?96 ?12/30/22 13:43 WBC count 7.94.? Hgb 11.2. INR 1.1. Lytes normal.? BUN 28. Creatinine 1.6.? Glucose 299. LFTs normal. TSH 1.03. UA pending EKG: Afib rate 83-139 CXR:?No acute pulmonary findings on this single AP portable view of the chest.Multiple healed left-sided rib fractures noted. CT head w/o acute findings. MR head w/o acute findings. MRA brain w/o stenosis or occlusion.? MRA neck w/o stenosis or occlusion. See Diagnosis PCP f/u in 1-2 weeks. Home Meds and New Rx's Prescriptions: New aspirin [Children's Aspirin] 81 mg Tablet,Chewable 81 mg PO DAILY Qty: 0 0RF ciprofloxacin HCl [Cipro] 250 mg tablet 250 mg PO BID Qty: 11 0RF Rx Instructions: First tab tonight; 12/31/22. Continued nystatin 100,000 unit/gram powder 1 applic Topical BID PRN (Reason: itching) Qty: 60 11RF Rx Instructions: Apply to abdominal fold and under breasts. diltiazem HCl 120 mg capsule,extended release 24hr 120 mg PO DAILY Jardiance 10 mg tablet 10 mg PO DAILY insulin lispro [Humalog KwikPen Insulin] 100 unit/mL insulin pen See Rx Instructions SUBCUT QMEALS Patient Comments: INJECT 12 UNITS SUBCUTANEOUSLY DIRECTED WITH MEALS Rx Instructions: 12 units in AM and 6 units PM subcutaneously with meals; (DME) Depend Underwear For Women Lrg Misc See Rx Instructions .Route Qty: 100 11RF Rx Instructions: Depends pull up large lisinopril 10 mg Tablet 10 mg PO DAILY insulin glargine [Lantus Solostar U-100 Insulin] 100 unit/mL (3 mL) Insulin Pen 20 unit subcut HS Qty: 15 1RF metoprolol succinate 100 mg tablet extended release 24 hr 100 mg PO DAILY Qty: 0 0RF Xarelto 15 mg Tablet 15 mg PO DAILY atorvastatin 20 mg Tablet 20 mg PO HS Qty: 30 0RF magnesium oxide [MagOx] 400 MG tablet 400 mg PO DAILY Qty: 30 0RF metformin 1,000 mg tablet 1,000 mg PO BID Qty: 60 0RF omeprazole 20 MG capsule,delayed release(DR/EC) 20 mg PO DAILY Qty: 30 0RF furosemide 20 mg tablet 20 mg PO DAILY Qty: 30 0RF Discharge Instructions Instructions: Urinary Tract Infection in Older Adults (DC) Activity:: Activity as Tolerated Equipment/Supplies:: No Equipment Needed Diet:: resume usual diet Discharge Orders Discharge Orders: Discharge Order (Routine); Ordered 12/31/22 Ordered By: Bebeto Ruggiero DS: Summary Time Spent with Patient providing and/or coordinating discharge services: Greater than 30 minutes Status at Discharge Functional status at discharge: independent ambulation Overall status at discharge: patient is progressing back to baseline Mental Status: mental status grossly normal Speech and Movement: speech and movement normal Mood: congruent mood Affect: normal affect Exam Narrative Exam Narrative: Lying in bed. NAD. Conversant and cooperative. Const Nutritional Appearance: obese Orientation: alert and oriented x3 HENMT Head: normocephalic and atraumatic Ears: hearing grossly abnormal bilaterally (mild diminished acuity) Eyes General: appearance normal, both eyes and all related structures Sclera: sclerae normal Resp Effort & Inspection: normal respiratory effort Auscultation: clear to auscultation bilaterally Cardio Rate: tachycardic Rhythm: abnormal rhythm irregularly irregular GI Palpation: soft Auscultation: normal bowel sounds Skin General skin exam: no rashes or lesions noted Neuro General: abnormal to light touch, pain or propio. (diminished on left; face/arm/leg.) and no focal motor deficits Cranial Nerves: facial strength normal Cognition: normal cognition Speech: expressive aphasia (pauses. States she has difficulty at times finding words.) and other (dysarthric. She endorses intermittent chronic slurring. ) Motor: strength 5/5 throughout Psych Mental Status: mental status grossly normal Speech and Movement: speech and movement normal Mood: congruent mood Affect: normal affect DS: Data Vitals/I&O Vitals and I&O: Vital Signs Temperature 36.9 C 12/31/22 11:32 Temperature Source Tympanic 12/31/22 11:32 Pulse 84 12/31/22 11:32 Pulse Rhythm Regular 12/31/22 08:30 Respiratory Rate 17 12/31/22 11:32 Respiratory Effort Normal, Non-Labored 12/31/22 08:30 Respiratory Depth Normal 12/31/22 08:30 Respiratory Pattern Normal 12/31/22 08:30 Blood Pressure 106/68 12/31/22 11:32 Blood Pressure Position Supine 12/30/22 13:43 Pulse Oximetry 97 12/31/22 11:32 Oxygen Delivery Method Room Air 12/31/22 11:32 Oxygen Flow Rate 0 12/31/22 11:32 Pain Level 4 12/31/22 11:32 Intake & Output 12/30/22 12/31/22 12/31/22 23:59 11:59 23:59 Intake Total 1000 / 1000 Output Total 1350 / 1820 470 / 1820 Balance 1000 / 1000 -1350 / -1820 -470 / -1820 Weight 86.835 kg Intake: IV 1000 / 1000 Output: Urine 1350 / 1820 470 / 1820 Other: Urine Color Yellow Pale Urine Appearance Clear Cloudy Clear Cloudy Sediment Stool Size Large Stool Characteristics Formed Brown Data Completed and Pending Labs on day of discharge: Labs from last 24 hours 12/31/22 12/31/22 12/31/22 07:00 07:00 07:00 WBC RBC Hgb Hct MCV MCH MCHC RDW Plt Count MPV Immature Gran % Neutrophils % Lymphocytes % Monocytes % Eosinophils % Basophils % Nucleated RBC % Absolute Neutrophils Absolute Lymphocytes Absolute Monocytes Absolute Eosinophils Absolute Basophils Sodium 142 Potassium 4.0 Chloride 107 Carbon Dioxide 25.9 Anion Gap 9.1 BUN 22 H Creatinine 1.2 H Est GFR (CKD-EPI 2020) 47.50 Glucose 100 Hemoglobin A1c Calcium 9.2 Magnesium Total Bilirubin AST ALT Alkaline Phosphatase Troponin I Total Protein Albumin Triglycerides 58 Total Cholesterol 139 LDL Cholesterol, Calc 65 HDL Cholesterol 63 Vitamin B12 TSH Urine Color Urine Clarity Urine pH Ur Specific [place] Urine Protein Urine Ketones Urine Blood Urine Nitrite Urine Bilirubin Urine Urobilinogen Ur Leukocyte Esterase Urine RBC Urine WBC Ur Epithelial Cells Urine Crystals Urine Bacteria Urine Mucus Ur Culture Indicated? Urine Glucose Add-On Test Request DONE 12/30/22 12/30/22 12/30/22 21:30 18:47 14:00 WBC RBC Hgb Hct MCV MCH MCHC RDW Plt Count MPV Immature Gran % Neutrophils % Lymphocytes % Monocytes % Eosinophils % Basophils % Nucleated RBC % Absolute Neutrophils Absolute Lymphocytes Absolute Monocytes Absolute Eosinophils Absolute Basophils Sodium Potassium Chloride Carbon Dioxide Anion Gap BUN Creatinine Est GFR (CKD-EPI 2020) Glucose Hemoglobin A1c Calcium Magnesium Total Bilirubin AST ALT Alkaline Phosphatase Troponin I < 50 Total Protein Albumin Triglycerides Total Cholesterol LDL Cholesterol, Calc HDL Cholesterol Vitamin B12 199 TSH Urine Color Yellow Urine Clarity Clear Urine pH 7.0 Ur Specific [place] 1.015 Urine Protein Trace H Urine Ketones Negative Urine Blood Trace-intact H Urine Nitrite Negative Urine Bilirubin Negative Urine Urobilinogen 0.2 Ur Leukocyte Esterase Trace H Urine RBC 0-2 Urine WBC 10-20 H Ur Epithelial Cells Rare Urine Crystals Negative Urine Bacteria Many Urine Mucus Negative Ur Culture Indicated? Yes Urine Glucose >=1000 H Add-On Test Request 12/30/22 12/30/22 12/30/22 14:00 14:00 14:00 WBC 7.94 RBC 4.30 Hgb 11.2 Hct 35.8 L MCV 83 MCH 26.0 L MCHC 31.3 L RDW 16.1 H Plt Count 388 MPV 10.6 Immature Gran % 0.4 Neutrophils % 67.0 Lymphocytes % 18.1 Monocytes % 12.2 Eosinophils % 1.5 Basophils % 0.8 Nucleated RBC % 0.0 Absolute Neutrophils 5.32 Absolute Lymphocytes 1.44 Absolute Monocytes 0.97 H Absolute Eosinophils 0.12 Absolute Basophils 0.06 Sodium 137 Potassium 4.2 Chloride 102 Carbon Dioxide 24.1 Anion Gap 10.9 BUN 28 H Creatinine 1.6 H Est GFR (CKD-EPI 2020) 33.63 Glucose 299 H Hemoglobin A1c 10.1 H Calcium 9.2 Magnesium 2.0 Total Bilirubin 0.4 AST 18 ALT 18 Alkaline Phosphatase 54 Troponin I < 50 Total Protein 7.5 Albumin 3.4 Triglycerides Total Cholesterol LDL Cholesterol, Calc HDL Cholesterol Vitamin B12 TSH 1.03 Urine Color Urine Clarity Urine pH Ur Specific [place] Urine Protein Urine Ketones Urine Blood Urine Nitrite Urine Bilirubin Urine Urobilinogen Ur Leukocyte Esterase Urine RBC Urine WBC Ur Epithelial Cells Urine Crystals Urine Bacteria Urine Mucus Ur Culture Indicated? Urine Glucose Add-On Test Request 12/30/22 21:30 Urine - Reflex from [facility] Urine Culture - Pending Preliminary micro results at discharge 12/30/22 21:30 Urine Culture - Pending Urine - Reflex from [facility] All Active Problems (Updated 12/31/22 @ 13:20 by Bebeto Ruggiero MD) CVA (cerebral vascular accident) (Chronic) Impaired instrumental activities of daily living (Acute) DNR (do not resuscitate) (Acute) Loneliness (Acute) Chronic kidney disease (CKD) (Chronic) Venous stasis dermatitis (Acute) Decreased activities of daily living (ADL) (Acute) Need for home health care (Acute) Palliative care encounter (Acute) Nephrolithiasis (Chronic) Sacral decubitus ulcer, stage II (Acute) Wound of right lower extremity (Acute) Hyperglycemia (Acute) Trochanteric bursitis, right hip (Acute) Right ankle sprain (Acute) Hip pain, right (Acute) GI bleed (Acute) Fracture, lumbar vertebra, compression (Acute) Multiple rib fractures involving four or more ribs (Acute) PSVT (paroxysmal supraventricular tachycardia) (Acute) Urinary retention (Acute 03/31/16) Poorly controlled diabetes mellitus (Chronic) Transient neurologic deficit (Acute) Fungal dermatitis (Acute) Atrial flutter (Acute) Vaginal bleeding, abnormal (Acute) Atrial fibrillation and flutter (Chronic) Diabetes mellitus type 2 in obese (Acute) Fracture of femoral neck, right (Acute) Retention, urine (Acute) Medical History Anemia Atrial fibrillation Cataracts, bilateral CHF (congestive heart failure) LVEF 50-55%, diastolic dysfunction Diabetes Diabetic ulcer of left lower leg GERD (gastroesophageal reflux disease) H/O menorrhagia Hard of hearing History of traumatic fracture of hip Hx of malignant melanoma Hyperlipidemia Hypertension Infestation by bed bug Pulmonary hypertension S/P right hip fracture Seronegative rheumatoid arthritis Supraventricular tachycardia TIA (transient ischemic attack) Unsteady gait Vision changes Surgical History History of bilateral cataract extraction History of suprapubic catheter Status post right hip replacement Family History Other Diabetes Heart disease Hyperlipidemia Hypertension Stroke Social History Smoking/Tobacco Use Status: Former Tobacco Use Smoking risk assessment performed?: Yes Alcohol Intake: never Drug use: Never Substance use type: does not use Household members: none Housing: apartment Do you feel safe at home: Yes Do you feel safe in your relationship?: Yes Additional Social history: Lives alone. [address] Does not [address]. Time Spent with Patient Time Spent with Patient: 45-69 minutes Time was spent: preparing to see the patient(eg.review tests), obtaining and/or reviewing separately otained hiistory, referring, communicating with other health caregivers homecare, indepentently interpreting results, counseling the patient and care coordination
== END 2022-12-31 14:17 | disposition home health service (06) ==
LOC: ER 14:39 → MS 19:43
PROVIDERS: Admitting Provider Family Medicine; Emergency Provider Physician Assistant; PCP Physician Assistant; Visit Provider Family Medicine
DX: I67.89 Other cerebrovascular disease (principal); R51.9 Headache, unspecified; I48.19 Other persistent atrial fibrillation; R20.0 Anesthesia of skin; E78.5 Hyperlipidemia, unspecified; N18.9 Chronic kidney disease, unspecified; E11.65 Type 2 diabetes mellitus with hyperglycemia; N39.0 Urinary tract infection, site not specified; I50.40 Unspecified combined systolic (congestive) and diastolic (congestive) heart failure; I48.92 Unspecified atrial flutter; Z79.01 Long term (current) use of anticoagulants; I47.1 Supraventricular tachycardia; I13.0 Hypertensive heart and chronic kidney disease with heart failure and stage 1 through stage 4 chronic kidney disease, or unspecified chronic kidney disease; Z93.51 Cutaneous-vesicostomy status; R33.9 Retention of urine, unspecified; L89.152 Pressure ulcer of sacral region, stage 2; I87.2 Venous insufficiency (chronic) (peripheral)
CPT/HCPCS: 36415; 70544; 70547; 80048; 80053; 80061; 87077; 93005; 96360; 96361; 96365; 99223; 99285; 70450; 70551; 71045; 81003; 81015; 82607; 83036; 83735; 84443; 84484; 85025; 87086; 87186; 93010; 99239; G0378; J0744

== ENCOUNTER → 2022-12-31 07:11 | Outpatient (BNVA) | payer MEDICARE, MEDICAID, SELFPAY | PROVIDERS: PCP Physician Assistant; Referring Provider Physician Assistant; Visit Provider Psychiatry & Neurology Neurology ==

== ENCOUNTER → 2023-01-14 09:19 | Outpatient (BNVA) | payer MEDICARE, MEDICAID, SELFPAY | PROVIDERS: PCP Physician Assistant; Visit Provider Nurse Practitioner Gerontology | DX: Z43.5 Encounter for attention to cystostomy (principal); R33.9 Retention of urine, unspecified; R32 Unspecified urinary incontinence | CPT/HCPCS: 99211 ==

== ENCOUNTER 2023-01-26 20:28 | Emergency (ER) | payer MEDICARE, MEDICAID, SELFPAY ==
[2023-01-26] VITALS (18 sets, daily range): BP systolic 106–138; BP diastolic 51–92; PULSE 91–107; RESP 18; TEMP 36.3–36.8; O2SAT 86–100
--- NOTE | 2023-01-26 20:30 | DI.CT_ITS ---
Exam(s) CT HEAD WO EXAM: CT HEAD WO CLINICAL HISTORY: right frontal headache. TECHNIQUE: Imaging Protocol: Axial computed tomography images with coronal and sagittal reformatted images were created and reviewed COMPARISON: MR MR BRAIN WO from 12/30/[address] HEAD WO from 12/30/2022 FINDINGS: Ventricles and Extra axial spaces: Normal in size and morphology for the patient's age. Hemorrhage: None. Cerebral parenchyma: No evidence of an acute intracranial infarct. There are areas of decreased atte nuation in the white matter most consistent with small vessel ischemic disease. Midline shift: None. Brainstem/Cerebellum: Normal. Calvarium: Normal. Visualized Paranasal sinuses/Mastoids: Clear. Soft Tissues: Unremarkable. IMPRESSION: No acute intracranial process. RADIATION DOSE DELIVERED: 668.03mGy.cm Total DLP DATA REPOSITORY: All CT scans at this facility are submitted to the National Radiology Data Registry (NRDR) Dose Index Registry (DIR) with the [employer] (ACR). RADIATION OPTIMIZATION: All CT scans at this facility use at least one of these dose optimization te chniques: automated exposure control; mA and/or kV adjustment per patient size (includes targeted exa ms where dose is matched to clinical indication); or iterative reconstruction.
[2023-01-26] MEDS: Acetaminophen 500 MG TAB 1000 MG PO (20:50)
--- NOTE | 2023-01-26 21:02 | ED.GENADUL_ITS ---
Discharge Plan Disposition Patient Disposition: Home Condition: Good Discharge Details Chief Complaint: Headache Clinical Impression: Decubitus ulcer Primary Care Provider: Dean Camilo ED Provider: Cullen Ponce Home Meds and New Rx's Prescriptions: No Action nystatin 100,000 unit/gram powder 1 applic Topical BID PRN (Reason: itching) Qty: 60 11RF Rx Instructions: Apply to abdominal fold and under breasts. diltiazem HCl 120 mg capsule,extended release 24hr 120 mg PO DAILY Jardiance 10 mg tablet 10 mg PO DAILY insulin lispro [Humalog KwikPen Insulin] 100 unit/mL insulin pen See Rx Instructions SUBCUT QMEALS Patient Comments: INJECT 12 UNITS SUBCUTANEOUSLY DIRECTED WITH MEALS Rx Instructions: 12 units in AM and 6 units PM subcutaneously with meals; (DME) Depend Underwear For Women Lrg Misc See Rx Instructions .Route Qty: 100 11RF Rx Instructions: Depends pull up large lisinopril 10 mg Tablet 10 mg PO DAILY insulin glargine [Lantus Solostar U-100 Insulin] 100 unit/mL (3 mL) Insulin Pen 20 unit subcut HS Qty: 15 1RF metoprolol succinate 100 mg tablet extended release 24 hr 100 mg PO DAILY Qty: 0 0RF Xarelto 15 mg Tablet 15 mg PO DAILY magnesium oxide [MagOx] 400 MG tablet 400 mg PO DAILY Qty: 30 0RF metformin 1,000 mg tablet 1,000 mg PO BID Qty: 60 0RF omeprazole 20 MG capsule,delayed release(DR/EC) 20 mg PO DAILY Qty: 30 0RF furosemide 20 mg tablet 20 mg PO DAILY Qty: 30 0RF aspirin [Children's Aspirin] 81 mg Tablet,Chewable 81 mg PO DAILY Qty: 0 0RF ciprofloxacin HCl [Cipro] 250 mg tablet 250 mg PO BID Qty: 11 0RF Rx Instructions: First tab tonight; 12/31/22. atorvastatin 20 mg tablet 80 mg PO HS Discharge Instructions Instructions: How to Prevent Pressure Injuries (ED) Additional Instructions: At this time your decubitus ulcer you are stable. It is been cleaned and r ebandaged. Please continue to apply barrier cream 2-3 times per day. If you notice any worsening of your symptoms, or any new symptoms such as vomiting, diarrhea, fever, chills, shortness of breath, chest pain, numbness, weakness, or fainting , please return immediately to the emergency department for reevaluation. Please follow up with your primary care provider as soon as possible for reassessment and reevaluation. As always, it was a pleasure participating in your medical care today. Referrals: Dean Camilo [Primary Care Provider] - Medical Decision Making 72-year-old female with a past medical history of chronic kidney disease, previous TIA and stroke, DNR/DNI, with a chronic decubitus ulcer, presents today for burning at her ulcer site. Patient states that has been burning for the last day. She does have Mepilex on but this has not been helping today. She also does complain of a mild headache that started when EMS came to get her. It is in her right latter-day. It is notably improved since she has been here, but she is concerned about a stroke. She denies any numbness tingling or weakness. She denies any other complaints. Exam demonstrates well-appearing female, no nuchal rigidity or focal neurologic deficits on exam. Normal neurologic exam. Rectal exam demonstrates evidence of a grade 1 to grade 2 pressure ulcer, there is notable amount of feces around the buttock, bandage, and under the bandage. This was removed and the burning resolved. The feces were cleaned and the burning resolved. Area was given barrier cream, and new bandage was applied. Symptoms notably inconsistent with intracranial bleed, however with patient's concern for headache, we will get a quick CAT scan to rule out any acute process or bleed from previous trauma. We will give Tylenol for pain control. Patient otherwise notably stable. 10:[address] scan negative for acute process. Patient feeling better. Symptoms inconsistent with stroke or bleed clinically. Patient has had her wound dressed. Patient feels well. Patient will be discharged home. I have extensively reviewed the treatment plan and discharge instructions with the patient. I have addressed all patient concerns at this time. The patient was made aware of what symptoms to monitor for that would warrant a return to the emergency department. Discussed the plan with the patient, they demonstrate verbal understanding and agreement with our assessment and plan at this time. The documentation in this chart was dictated using [employer] dictation software. Please excuse any dictation errors. FINDINGS: Brain: Moderate generalized cerebral/cerebellar atrophy. Minimal bilateral white matter hypodensities which are nonspecific but most commonly associated with chronic microvascular ischemia in this age group. The IACs are grossly normal. No extra-axial fluid collections. No evidence of acute intracranial hemorrhage. No CT evidence of large territory acute or subacute intracranial ischemia/infarct. No intracranial mass lesions. No midline shift or herniation. Cerebral ventricles: Moderate compensatory ventriculomegaly secondary to central atrophy. There is mild normal variant lateral ventricular asymmetry. Pituitary gland and sella: The sella is grossly normal. Paranasal sinuses: Visualized paranasal sinuses are clear. Mastoid air cells: Visualized mastoid air cells are clear. Orbital cavities: No acute intraorbital findings. Prior bilateral ocular lens extraction. Bones/joints: The calvarium and visualized facial bones are intact. Soft tissues: The scalp and visualized soft tissues demonstrate no acute abnormality. Vasculature: Moderate calcific atherosclerosis. No asymmetric vascular hyperdensities suggestive of thrombosis are identified. Other findings: Elliott-white matter differentiation is well maintained. IMPRESSION: 1. No acute intracranial process. No intracranial hemorrhage or mass effect. 2. Atrophy and minor microvascular changes consistent with age. 3. Moderate calcific atherosclerosis. Thank you for allowing us to participate in the care of your patient. Dictated and Authenticated by: Sonny Smith MD 01/26/2023 9:57 PM Eastern Time ([place] & [place]) HPI General Date/Time Provider Initiated Documentation: 01/26/23 20:42 . HPI Narrative: 72-year-old female with a past medical history of chronic kidney disease, previous TIA and stroke, DNR/DNI, with a chronic decubitus ulcer, presents today for burning at her ulcer site. Patient states that has been burning for the last day. She does have Mepilex on but this has not been helping today. She also does complain of a mild headache that started when EMS came to get her. It is in her right latter-day. It is notably improved since she has been here, but she is concerned about a stroke. She denies any numbness ti ngling or weakness. She denies any other complaints. Related Data Home Medications Medication Instructions Recorded Confirmed lisinopril 10 mg tablet 10 mg PO DAILY 05/12/19 01/26/23 nystatin 100,000 unit/gram topical 1 applic topical BID PRN itching 10/31/20 01/26/23 powder #60 grams insulin glargine 100 unit/mL (3 20 unit (0.2 mL) subcut HS #15 mL 06/08/21 08/07/23 mL) subcutaneous pen (Lantus Solostar U-100 Insulin) metoprolol succinate 100 mg 100 mg PO DAILY #0 tabs 11/27/20 01/26/23 tablet,extended release 24 hr rivaroxaban 15 mg tablet (Xarelto) 15 mg PO DAILY 07/31/21 01/26/23 furosemide 20 mg tablet 20 mg PO DAILY #30 tabs 08/02/21 01/26/23 magnesium oxide 400 mg (241.3 mg 400 mg PO DAILY #30 tabs 08/02/21 01/26/23 magnesium) tablet (MagOx) metformin 1,000 mg tablet 1,000 mg PO BID #60 tabs 08/02/21 01/26/23 omeprazole 20 mg capsule,delayed 20 mg PO DAILY #30 caps 08/02/21 01/26/23 release diltiazem HCl 120 mg 120 mg PO DAILY 10/16/21 01/26/23 capsule,extended release 24 hr empagliflozin 10 mg tablet 10 mg PO DAILY 10/16/21 01/26/23 (Jardiance) insulin lispro 100 unit/mL See Rx Instructions subcut QMEALS 12/17/21 01/26/23 subcutaneous pen (Humalog KwikPen (U-100) Insulin) diaper,brief,adult,disposable #100 ea 09/30/22 01/26/23 (Depend Underwear For Women Large) aspirin 81 mg chewable tablet 81 mg PO DAILY #0 tabs 12/31/22 01/26/23 (Children's Aspirin) ciprofloxacin HCl 250 mg tablet 250 mg PO BID #11 tabs 12/31/22 01/26/23 (Cipro) atorvastatin 20 mg tablet 80 mg PO HS 01/26/23 01/26/23 Previous Rx's Medication Instructions Recorded nystatin 100,000 unit/gram topical 1 applic topical BID PRN itching 10/31/20 powder #60 grams insulin glargine 100 unit/mL (3 20 unit (0.2 mL) subcut HS #15 mL 11/27/20 mL) subcutaneous pen (Lantus Solostar U-100 Insulin) metoprolol succinate 100 mg 100 mg PO DAILY #0 tabs 11/27/20 tablet,extended release 24 hr furosemide 20 mg tablet 20 mg PO DAILY #30 tabs 08/02/21 magnesium oxide 400 mg (241.3 mg 400 mg PO DAILY #30 tabs 08/02/21 magnesium) tablet (MagOx) metformin 1,000 mg tablet 1,000 mg PO BID #60 tabs 08/02/21 omeprazole 20 mg capsule,delayed 20 mg PO DAILY #30 caps 08/02/21 release diaper,brief,adult,disposable #100 ea 09/30/22 (Depend Underwear For Women Large) aspirin 81 mg chewable tablet 81 mg PO DAILY #0 tabs 12/31/22 (Children's Aspirin) ciprofloxacin HCl 250 mg tablet 250 mg PO BID #11 tabs 12/31/22 (Cipro) Allergies Allergy/AdvReac Type Severity Reaction Status Date / Time trazodone AdvReac Intermediate NIGHTMARES Verified 01/26/23 20:38 General Stated Complaint: Headache ARGENIS: 3 Review of Systems All systems reviewed & are unremarkable except as noted in HPI and below PFSH All Active Problems (Updated 01/26/23 @ 22:32 by Cullen Ponce DO) Decubitus ulcer (Acute) Full code status (Acute) Advance care planning (Acute) Brain TIA (Acute) Vitamin B12 deficiency (Acute) CVA (cerebral vascular accident) (Chronic) Impaired instrumental activities of daily living (Acute) DNR (do not resuscitate) (Acute) Loneliness (Acute) Chronic kidney disease (CKD) (Chronic) Venous stasis dermatitis (Acute) Decreased activities of daily living (ADL) (Acute) Need for home health care (Acute) Palliative care encounter (Acute) Nephrolithiasis (Chronic) Sacral decubitus ulcer, stage II (Acute) Wound of right lower extremity (Acute) Hyperglycemia (Acute) Trochanteric bursitis, right hip (Acute) Right ankle sprain (Acute) Hip pain, right (Acute) GI bleed (Acute) Fracture, lumbar vertebra, compression (Acute) PSVT (paroxysmal supraventricular tachycardia) (Acute) Urinary retention (Acute 03/31/16) Poorly controlled diabetes mellitus (Chronic) Transient neurologic deficit (Acute) Fungal dermatitis (Acute) Atrial flutter (Acute) Vaginal bleeding, abnormal (Acute) Atrial fibrillation and flutter (Chronic) Diabetes mellitus type 2 in obese (Acute) Fracture of femoral neck, right (Acute) Retention, urine (Acute) Medical History Anemia Atrial fibrillation Cataracts, bilateral CHF (congestive heart failure) LVEF 50-55%, diastolic dysfunction Diabetes Diabetic ulcer of left lower leg GERD (gastroesophageal reflux disease) H/O menorrhagia Hard of hearing History of traumatic fracture of hip Hx of malignant melanoma Hyperlipidemia Hypertension Infestation by bed bug Multiple rib fractures involving four or more ribs Pulmonary hypertension S/P right hip fracture Seronegative rheumatoid arthritis Supraventricular tachycardia TIA (transient ischemic attack) Unsteady gait Vision changes Surgical History History of bilateral cataract extraction History of suprapubic catheter Status post right hip replacement Family History Other Diabetes Heart disease Hyperlipidemia Hypertension Stroke Social History Smoking/Tobacco Use Status: Former Tobacco Use Smoking risk assessment performed?: Yes Alcohol Intake: never Drug use: Never Substance use type: does not use Household members: none Housing: apartment Do you feel safe at home: Yes Do you feel safe in your relationship?: Yes Additional Social history: Lives alone. [address] Does not drive. Exam Narrative Exam Narrative: 1.Const: Well-nourished, Well-developed, appearing stated age 2.Eyes: PERRL, no conjunctival injection, and symmetrical lids. 3.ENT: Atraumatic external nose and ears. Moist MM. Neck: Symmetric, trachea midline, No thyromegaly. Patient demonstrates good movement of cervical neck. There is no nuchal rigidity, no nuchal tenderness. Patient is able to flex the neck without any difficulty or significant pain. Negative Kernig's and Brudzinski sign. 4.CVS: +S1/S2, No murmurs or gallops. Peripheral pulses 2+ and equal in all extremities. Brisk capillary refill in all extremities. 5.RESP: Unlabored respiratory effort. Clear to auscultation bilaterally. No wheezes rales or rhonchi 6.GI: Soft, Nontender/Nondistended, No hepatosplenomegaly. No guarding or rebound. Patient's buttock demonstrates a grade 1 to a may be early grade 2 pressure ulcer between her gluteal clefts. There was notable amount of feces in the buttock, as well as on around and under the Mepilex bandage. 7.MSK: Normocephalic/Atraumatic, Extremities w/o deformity or ttp No cyanosis or clubbing, Normal movement of all extremities 8.Skin: Warm, Dry. No rashes or lesions. 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 Sensation grossly intact, no focal neurologic deficits. All 6 cardinal planes of vision are fully intact. No evidence of rotatory or vertical nystagmus. The patient demonstrated a normal [id number], good dexterity. There was no evidence of dysdiadochokinesia. Patient was able to ambulate without difficulty. There was no wide-based gait. Romberg testing was normal. [id number] testing was normal. Sensation was intact bilaterally as well as muscle strength bilaterally for all extremities. Patient was able to verbalize butter cup with no slurring, or miss pronunciation. 10.Psych: (AAO) x3. Appropriate mood and affect Course Vital Signs Vital signs: Vital Signs Temperature 36.3 C L 01/26/23 20:20 Pulse 106 H 01/26/23 20:20 Respiratory Rate 18 01/26/23 20:20 Blood Pressure 122/92 H 01/26/23 20:20 Pulse Oximetry 100 01/26/23 20:20 Temperature 36.3 C L 01/26/23 20:20 Temperature Source Oral 01/26/23 20:20 Pulse 106 H 01/26/23 20:20 Respiratory Rate 18 01/26/23 20:20 Respiratory Effort Normal, Non-Labored 01/26/23 20:24 Blood Pressure 122/92 H 01/26/23 20:20 Blood Pressure Position Supine 01/26/23 20:20 Pulse Oximetry 100 01/26/23 20:20 Oxygen Delivery Method Room Air 01/26/23 20:20 Oxygen Flow Rate 0 01/26/23 20:20 Pain Level 7 01/26/23 20:33
--- NOTE | 2023-01-26 21:58 | DI.VRAD_ITS ---
PROCEDURE INFORMATION: Exam: CT Head Without Contrast Exam date and time: 01/26/2023 9:24 PM Age: 72 years old Clinical indication: Pain; Headache not specified; Patient HX: R frontal headache TECHNIQUE: Imaging protocol: Computed tomography of the head without contrast. Radiation optimization: All CT scans at this facility use at least one of these dose optimization techniques: automated exposure control; mA and/or kV adjustment per patient size (includes targeted exams where dose is matched to clinical indication); or iterative reconstruction. COMPARISON: MR BRAIN WO 12/30/2022 5:51 PM FINDINGS: Brain: Moderate generalized cerebral/cerebellar atrophy. Minimal bilateral white matter hypodensities which are nonspecific but most commonly associated with chronic microvascular ischemia in this age group. The IACs are grossly normal. No extra-axial fluid collections. No evidence of acute intracranial hemorrhage. No CT evidence of large territory acute or subacute intracranial ischemia/infarct. No intracranial mass lesions. No midline shift or herniation. Cerebral ventricles: Moderate compensatory ventriculomegaly secondary to central atrophy. There is mild normal variant lateral ventricular asymmetry. Pituitary gland and sella: The sella is grossly normal. Paranasal sinuses: Visualized paranasal sinuses are clear. Mastoid air cells: Visualized mastoid air cells are clear. Orbital cavities: No acute intraorbital findings. Prior bilateral ocular lens extraction. Bones/joints: The calvarium and visualized facial bones are intact. Soft tissues: The scalp and visualized soft tissues demonstrate no acute abnormality. Vasculature: Moderate calcific atherosclerosis. No asymmetric vascular hyperdensities suggestive of thrombosis are identified. Other findings: Elliott-white matter differentiation is well maintained. IMPRESSION: 1. No acute intracranial process. No intracranial hemorrhage or mass effect. 2. Atrophy and minor microvascular changes consistent with age. 3. Moderate calcific atherosclerosis. Dictated and Authenticated by: Sonny Smith MD. Ordering:CARLEY Berman MD
== END 2023-01-26 23:37 | disposition home or self-care (01) ==
LOC: ER 22:32
PROVIDERS: Emergency Provider Student in an Organized Health Care Education/Training Program; PCP Physician Assistant
DX: L89.152 Pressure ulcer of sacral region, stage 2 (principal)
CPT/HCPCS: 99284; 70450; 99283

== ENCOUNTER → 2023-01-30 12:07 | Outpatient (BNVA) | payer MEDICARE, MEDICAID, SELFPAY | PROVIDERS: PCP Physician Assistant; Referring Provider Physician Assistant; Visit Provider Urology | DX: Z43.5 Encounter for attention to cystostomy (principal); R33.9 Retention of urine, unspecified | CPT/HCPCS: 99211 ==

== ENCOUNTER → 2023-02-18 09:18 | Outpatient (BNVA) | payer MEDICARE, MEDICAID, SELFPAY | PROVIDERS: PCP Physician Assistant; Referring Provider Physician Assistant; Visit Provider Nurse Practitioner Gerontology | DX: Z43.5 Encounter for attention to cystostomy (principal); R33.9 Retention of urine, unspecified; R32 Unspecified urinary incontinence | CPT/HCPCS: 51705 ==

== ENCOUNTER → 2023-04-08 09:27 | Outpatient (BNVA) | payer MEDICARE, MEDICAID, SELFPAY | PROVIDERS: PCP Physician Assistant; Visit Provider Nurse Practitioner Gerontology | DX: Z43.5 Encounter for attention to cystostomy (principal); R33.9 Retention of urine, unspecified; R32 Unspecified urinary incontinence | CPT/HCPCS: 99211 ==

== ENCOUNTER 2023-04-23 06:00 | Inpatient (IN) | payer MEDICARE, MEDICAID, SELFPAY ==
[2023-04-23] VITALS (33 sets, daily range): BP systolic 94–160; BP diastolic 56–99; PULSE 86–147; RESP 9–26; TEMP 36.3–37.7; O2SAT 92–98
--- NOTE | 2023-04-23 | DI.CT_ITS ---
Exam(s) CT HEAD WO EXAM: CT HEAD WO CLINICAL HISTORY: AMS. TECHNIQUE: Imaging Protocol: Axial computed tomography images with coronal and sagittal reformatted images were created and reviewed COMPARISON: CT CT HEAD WO from 01/26/2023 FINDINGS: Ventricles and Extra axial spaces: Normal in size and morphology for the patient's age. Hemorrhage: None. Cerebral parenchyma: There is small vessel ischemic disease. No acute mass effect or midline shift i s seen. Midline shift: None. Brainstem/Cerebellum: Normal. Calvarium: Normal. Visualized Paranasal sinuses/Mastoids: Clear. Soft Tissues: Unremarkable. IMPRESSION: No acute intracranial process. RADIATION DOSE DELIVERED: Total DLP DATA REPOSITORY: All CT scans at this facility are submitted to the National Radiology Data Registry (NRDR) Dose Index Registry (DIR) with the [employer] (A[employer]). RADIATION OPTIMIZATION: All CT scans at this facility use at least one of these dose optimization te chniques: automated exposure control; mA and/or kV adjustment per patient size (includes targeted exa ms where dose is matched to clinical indication); or iterative reconstruction.
--- NOTE | 2023-04-23 05:45 | RT.EKG_ITS ---
APPROVED REPORT Exam: Resting ECG Reason for Exam: tachy Patient Location: E HR:130 bpm ECG Measurements Heart Rate 130 AXIS IA [id number] P [id number] QRSd 86 QRS 19 QT 310 T 57 QTc 456 Conclusion Atrial fibrillation...V-rate 90-146, irreg A-activity Low voltage, extremity and precordial leads...extremity<0.5mV, precordial<1.0mV afib rvr, normal axis, normal intervals, non ischemic
--- NOTE | 2023-04-23 06:00 | DI.RAD_ITS ---
Exam(s) XR PORTABLE CHEST AP EXAM: XR PORTABLE CHEST AP CLINICAL HISTORY: tachycardia, chf, hyperglycemia TECHNIQUE: 2D digital imaging was performed of the chest. One image was obtained. An AP view was ob tained. COMPARISON: CR XR PORTABLE CHEST AP from 12/30/2022 FINDINGS: There is poor inspiration. MEDIASTINUM: Normal. HEART: Normal. PULMONARY VASCULATURE: Normal. LUNGS: Clear. PLEURAL SPACE: No pleural effusion or pneumothorax. BONE:Within normal limits for the patient's age. There are old healed left rib fractures. OTHER FINDINGS:Normal. IMPRESSION: No acute pulmonary findings. DATA REPOSITORY: RADIATION DOSE DELIVERED:
--- NOTE | 2023-04-23 06:15 | W.ED.GENAD ---
Discharge Plan Disposition Patient Disposition: Admit to [facility] Condition: Stable Discharge Details Chief Complaint: GenMedical Clinical Impression: Acute hyperglycemia, Acute UTI, AMS (altered mental status), Diabetic hyperosmolar non-ketotic state Primary Care Provider: Dean Camilo ED Provider: Bebeto Curtis Home Meds and New Rx's Prescriptions: No Action nystatin 100,000 unit/gram powder 1 applic Topical BID PRN (Reason: itching) Qty: 60 11RF Rx Instructions: Apply to abdominal fold and under breasts. diltiazem HCl 120 mg capsule,extended release 24hr 120 mg PO DAILY Jardiance 10 mg tablet 10 mg PO DAILY insulin lispro [Humalog KwikPen Insulin] 100 unit/mL insulin pen See Rx Instructions SUBCUT QMEALS Patient Comments: INJECT 12 UNITS SUBCUTANEOUSLY DIRECTED WITH MEALS Rx Instructions: 12 units in AM and 6 units PM subcutaneously with meals; (DME) Depend Underwear For Women Lrg Misc See Rx Instructions .Route Qty: 100 11RF Rx Instructions: Depends pull up large lisinopril 10 mg Tablet 10 mg PO DAILY insulin glargine [Lantus Solostar U-100 Insulin] 100 unit/mL (3 mL) Insulin Pen 20 unit subcut HS Qty: 15 1RF metoprolol succinate 100 mg tablet extended release 24 hr 100 mg PO DAILY Qty: 0 0RF Xarelto 15 mg Tablet 15 mg PO DAILY magnesium oxide [MagOx] 400 MG tablet 400 mg PO DAILY Qty: 30 0RF metformin 1,000 mg tablet 1,000 mg PO BID Qty: 60 0RF omeprazole 20 MG capsule,delayed release(DR/EC) 20 mg PO DAILY Qty: 30 0RF furosemide 20 mg tablet 20 mg PO DAILY Qty: 30 0RF aspirin [Children's Aspirin] 81 mg Tablet,Chewable 81 mg PO DAILY Qty: 0 0RF ciprofloxacin HCl [Cipro] 250 mg tablet 250 mg PO BID Qty: 11 0RF Rx Instructions: First tab tonight; 12/31/22. atorvastatin 20 mg tablet 80 mg PO HS Medical Decision Making 72-year-old female history of diabetes, TIA, A-fib, presents brought in by EMS for altered mental status, unknown duration, patient is not been taking her medications, patient is suprapubic Barber catheter in place, copious yellow cloudy urine in bag, dry oral mucosa and skin, tachycardic A-fib RVR hypertense on arrival fingerstick reading high, consider hyperosmotic nonketotic versus DKA was also consider UTI versus viral syndrome versus pneumonia patient appears clinically dry will start 1 L of normal saline despite history of CHF, echo in 2019 showing normal LVEF and right ventricular function, no shortness of breath no rales; low suspicion for CVA/TIA no evidence of trauma lower suspicion for ACS PE or aortic pathology. Screening labs imaging fluids will start home meds beginning with diltiazem p.o., will administer subcutaneous insulin 6: 56 patient was comfortably no acute distress, portable chest x-ray clear; blood sugar 723 potassium 5.1 7: 21 patient resting comfortably no acute distress, corrected sodium 134. Covering patient with ceftriaxone given urine appearance and presence of bacteria and leuk esterase. Rate improving to low 120s from the high 140s. Will need admission for fluid hydration blood sugar management and reassessment of mental status. HPI General Date/Time Provider Initiated Documentation: 04/23/23 06:08. HPI Narrative: 72-year-old female brought in by EMS for altered mental status found to be hyperglycemic, suprapubic catheter in place, patient lives alone; no signs of trauma; patient alert to self however not situation; endorses not taking her medications Related Data Home Medications Medication Instructions Recorded Confirmed lisinopril 10 mg tablet 10 mg PO DAILY 05/12/19 04/23/23 nystatin 100,000 unit/gram topical 1 applic topical BID PRN itching 10/31/20 01/26/23 powder #60 grams insulin glargine 100 unit/mL (3 20 unit (0.2 mL) subcut HS #15 mL 11/27/20 01/26/23 mL) subcutaneous pen (Lantus Solostar U-100 Insulin) metoprolol succinate 100 mg 100 mg PO DAILY #0 tabs 11/27/20 04/23/23 tablet,extended release 24 hr rivaroxaban 15 mg tablet (Xarelto) 15 mg PO DAILY 07/31/21 01/26/23 furosemide 20 mg tablet 20 mg PO DAILY #30 tabs 08/02/21 01/26/23 magnesium oxide 400 mg (241.3 mg 400 mg PO DAILY #30 tabs 08/02/21 04/23/23 magnesium) tablet (MagOx) metformin 1,000 mg tablet 1,000 mg PO BID #60 tabs 08/02/21 04/23/23 omeprazole 20 mg capsule,delayed 20 mg PO DAILY #30 caps 08/02/21 01/26/23 release diltiazem HCl 120 mg 120 mg PO DAILY 10/16/21 01/26/23 capsule,extended release 24 hr empagliflozin 10 mg tablet 10 mg PO DAILY 10/16/21 04/23/23 (Jardiance) insulin lispro 100 unit/mL See Rx Instructions subcut QMEALS 12/17/21 01/26/23 subcutaneous pen (Humalog KwikPen (U-100) Insulin) diaper,brief,adult,disposable #100 ea 09/30/22 01/26/23 (Depend Underwear For Women Large) aspirin 81 mg chewable tablet 81 mg PO DAILY #0 tabs 12/31/22 01/26/23 (Children's Aspirin) ciprofloxacin HCl 250 mg tablet 250 mg PO BID #11 tabs 12/31/22 01/26/23 (Cipro) atorvastatin 20 mg tablet 80 mg PO HS 01/26/23 01/26/23 Previous Rx's Medication Instructions Recorded nystatin 100,000 unit/gram topical 1 applic topical BID PRN itching 10/31/20 powder #60 grams insulin glargine 100 unit/mL (3 20 unit (0.2 mL) subcut HS #15 mL 11/27/20 mL) subcutaneous pen (Lantus Solostar U-100 Insulin) metoprolol succinate 100 mg 100 mg PO DAILY #0 tabs 11/27/20 tablet,extended release 24 hr furosemide 20 mg tablet 20 mg PO DAILY #30 tabs 08/02/21 magnesium oxide 400 mg (241.3 mg 400 mg PO DAILY #30 tabs 08/02/21 magnesium) tablet (MagOx) metformin 1,000 mg tablet 1,000 mg PO BID #60 tabs 08/02/21 omeprazole 20 mg capsule,delayed 20 mg PO DAILY #30 caps 08/02/21 release diaper,brief,adult,disposable #100 ea 09/30/22 (Depend Underwear For Women Large) aspirin 81 mg chewable tablet 81 mg PO DAILY #0 tabs 12/31/22 (Children's Aspirin) ciprofloxacin HCl 250 mg tablet 250 mg PO BID #11 tabs 12/31/22 (Cipro) Allergies Allergy/AdvReac Type Severity Reaction Status Date / Time trazodone AdvReac Intermediate NIGHTMARES Verified 04/23/23 06:03 General Stated Complaint: GenMedical ARGENIS: 2 Review of Systems Narrative: Review of Systems Constitutional: AMS Eyes: negative ENT: negative Cardiovascular: Tachycardia Respiratory: negative Gastrointestinal: negative : negative Musculoskeletal: negative Skin: negative Neurologic: AMS Psych: negative PFSH All Active Problems (Updated 04/23/23 @ 07:36 by Bbeeto Curtis MD) Diabetic hyperosmolar non-ketotic state (Acute) AMS (altered mental status) (Acute) Acute UTI (Acute) Acute hyperglycemia (Acute) Full code status (Acute) Advance care planning (Acute) Brain TIA (Acute) Vitamin B12 deficiency (Acute) CVA (cerebral vascular accident) (Chronic) Impaired instrumental activities of daily living (Acute) DNR (do not resuscitate) (Acute) Loneliness (Acute) Chronic kidney disease (CKD) (Chronic) Venous stasis dermatitis (Acute) Decreased activities of daily living (ADL) (Acute) Need for home health care (Acute) Nephrolithiasis (Chronic) Sacral decubitus ulcer, stage II (Acute) Wound of right lower extremity (Acute) Hyperglycemia (Acute) Trochanteric bursitis, right hip (Acute) Right ankle sprain (Acute) Hip pain, right (Acute) GI bleed (Acute) Fracture, lumbar vertebra, compression (Acute) PSVT (paroxysmal supraventricular tachycardia) (Acute) Urinary retention (Acute 03/31/16) Poorly controlled diabetes mellitus (Chronic) Transient neurologic deficit (Acute) Fungal dermatitis (Acute) Atrial flutter (Acute) Vaginal bleeding, abnormal (Acute) Atrial fibrillation and flutter (Chronic) Diabetes mellitus type 2 in obese (Acute) Fracture of femoral neck, right (Acute) Retention, urine (Acute) Medical History (Updated 04/23/23 @ 07:36 by Bebeto Curtis MD) Infestation by bed bug Hx of malignant melanoma GERD (gastroesophageal reflux disease) H/O menorrhagia Supraventricular tachycardia History of traumatic fracture of hip Unsteady gait Hard of hearing Vision changes Anemia 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 Palliative care encounter Pulmonary hypertension Multiple rib fractures involving four or more ribs Hypertension S/P right hip fracture TIA (transient ischemic attack) Hyperlipidemia Atrial fibrillation CHF (congestive heart failure) LVEF 50-55%, diastolic dysfunction Diabetes Cataracts, bilateral Surgical History History of bilateral cataract extraction History of suprapubic catheter Status post right hip replacement Family History Other Diabetes Heart disease Hyperlipidemia Hypertension Stroke Social History Smoking/Tobacco Use Status: Former Tobacco Use Smoking risk assessment performed?: Yes Alcohol Intake: never Drug use: Never Substance use type: does not use Household members: none Housing: apartment Do you feel safe at home: Yes Do you feel safe in your relationship?: Yes Additional Social history: Lives alone. [address] Does not drive. Exam Narrative Exam Narrative: Physical Examination General: alert, awake, cooperative, resting comfortably, no acute distress HEENT: normocephalic, atraumatic; PERRL, EOM intact, conjunctiva normal; no nasal discharge; dry oral mucosa Neck: supple, trachea midline; full ROM Chest: normal to inspection Respiratory: normal respiratory effort, speaking in full sentences, clear to auscultation, no wheezing, rales or rhonchi Cardiac: Tachycardia, regular rhythm, S1S2 intact, no murmurs rubs or gallops GI: abdomen soft, non-tender, non-distended; no palpable mass or hepatosplenomegaly : Suprapubic catheter in place, copious cloudy yellow urine in bag Skin: Dry Neuro: Alert to self however not alert to situation, moving all extremities out of 5 strength following commands Extremities: Chronic appearing edema bilateral ankles and lower extremities with chronic venous stasis changes Course Vital Signs Vital signs: Vital Signs Temperature 37.0 C 04/23/23 06:03 Pulse 144 H 04/23/23 06:03 Respiratory Rate 19 04/23/23 06:03 Blood Pressure 160/99 H 04/23/23 06:03 Temperature 37.0 C 04/23/23 06:05 Temperature Source Temporal Artery Scan 04/23/23 06:05 Pulse 133 H 04/23/23 06:05 Respiratory Rate 19 04/23/23 06:05 Respiratory Effort Normal, Non-Labored 04/23/23 06:05 Respiratory Depth Normal 04/23/23 06:05 Respiratory Pattern Normal 04/23/23 06:05 Blood Pressure 160/99 H 04/23/23 06:05 Blood Pressure Position Sitting 04/23/23 06:05 Pulse Oximetry 98 04/23/23 06:05 Oxygen Delivery Method Room Air 04/23/23 06:05 Oxygen Flow Rate 0 04/23/23 06:03 Pain Level 0 04/23/23 06:05
[2023-04-23] MEDS: Normal Saline 1,000 ML 1000 ML IV (06:22)
--- NOTE | 2023-04-23 06:22 | NUR.NOTE ---
PTs catheter bag that was in place was emptied. the bag contained 2700ml of cloudy pale yellow urine Nursing Note:
[2023-04-23 06:24] LABS: BE (Venous) -3 mmol/L (-2-3); HCO3 (Venous) 22 mmol/L (23-28); O2 Sat (Venous) 68 %; TCO2 (Venous) 21 mmol/L (24-29); pCO2 (Venous) 40 mmHg (41-51); pH (Venous) 7.35 (7.31-7.41); pO2 (Venous) 39 mmHg
[2023-04-23 06:26] LABS: Abs Immature Grans 0.05 10^3/uL (0.0-0.06); Absolute Basophil Count 0.04 10^3/uL (0.0-0.2); Absolute Eosinophil Count 0.04 10^3/uL (0.0-0.7); Absolute Lymphocyte Count 1.11 10^3/uL (1.2-3.4); Absolute Monocyte Count 0.54 10^3/uL (0.1-0.8); Absolute Neutrophil Count 7.15 10^3/uL (1.2-6.7); Basophils % 0.4; Eosinophils % 0.4; HCT 37.8 % (36.0-46.0); HGB 11.9 g/dL (11.2-15.7); Immature Grans % 0.6; Lymphocytes % 12.4; MCH 25.5 pg (27.0-33.0); MCHC 31.5 % (32.0-36.0); MCV 81 fL (80-95); MPV 10.8 fL (8.0-11.0); Neutrophils % 80.2; Platelet Count 406 10^3/uL (130-400); RBC 4.67 10^6/uL (3.93-5.22); RDW 15.5 % (11.7-14.6); RDW-SD 45.8 fL; WBC 8.93 10^3/uL (4.4-10.8)
[2023-04-23 06:34] LABS: Bilirubin Negative (Negative); Blood Trace-intact (Negative); Clarity Cloudy (Clear); Glucose 500 mg/dL (Negative); Ketones 15 mg/dL (Negative); Leukocyte Esterase Small (Negative); Nitrite Negative (Negative); Urobilinogen 0.2 mg/dL (Up to 0.2)
[2023-04-23 06:41] LABS: Bacteria Moderate HPF (Negative); Epithelial Cells Negative HPF (Negative)
[2023-04-23 06:42] LABS: C & S Indicated? Yes; Crystals Moderate Amorphous HPF (Negative); Mucus Negative (Negative)
[2023-04-23 06:43] LABS: INR 1.1 (0.9-1.1); PTT Activated 26.3 sec (23.6-32.8); Prothrombin Time 11.4 sec (9.1-11.1)
--- NOTE | 2023-04-23 06:48 | DI.VRAD_ITS ---
PROCEDURE INFORMATION: Exam: XR Chest Exam date and time: 04/23/2023 6:34 AM Age: 72 years old Clinical indication: Other: Tachycardia, chf, hyperglycemia TECHNIQUE: Imaging protocol: Radiologic exam of the chest. Views: 1 view. COMPARISON: CR XR PORTABLE CHEST AP 12/30/2022 3:29 PM FINDINGS: Lungs: Low lung volumes. Mildly increased pulmonary markings, likely secondary to low lung volumes. Pleural spaces: No large pleural effusion seen. Heart/Mediastinum: No cardiomegaly. Bones/joints: Rib deformities appear nonacute. IMPRESSION: No acute findings to explain reported symptoms. Dictated and Authenticated by: Penny Celestin MD. Ordering:HERNAN Tate MD
--- NOTE | 2023-04-23 06:50 | NUR.NOTE ---
0643: Pt demonstrated 12 beat run of VTACH that spontaneously resolved. MD Curtis updated and aware. Pt denies sxs, but remains very confused. MD at bedside to assess.
[2023-04-23 06:52] LABS: *AMPHETAMINES SCREEN URINE Negative (Negative); *BARBITURATES SCREEN URINE Negative (Negative); *BENZODIAZEPINES SCREEN URINE Negative (Negative); Cannabinoids THC Negative (Negative); Cocaine Screen,Urine Negative (Negative); METHADONE URINE SCREEN Negative (Negative); OPIATES URINE SCREEN Negative (Negative)
[2023-04-23 06:53] LABS: Tricyclic Antidepressants Negative (Negative)
[2023-04-23 06:54] LABS: ALT 22 U/L (14-59); AST 18 U/L (15-37); Albumin 3.8 g/dL (3.4-5.0); Alkaline Phosphatase 66 U/L (46-116); Anion Gap 13.6 mmol/L (3-11); BUN 29 mg/dL (7-18); Bilirubin, Total 0.5 mg/dL (0.2-1.0); CO2 21.4 mmol/L (21.0-32.0); CREATININE 1.6 mg/dL (0.55-1.02); Calcium 9.9 mg/dL (8.5-10.1); Chloride 89 mmol/L (98-107); Estimated GFR 33.63 (mL/min/1.73m2); Magnesium 1.9 mg/dL (1.8-2.4); NT-proBNP 524 pg/mL (<300); Potassium 5.1 mmol/L (3.5-5.1); TSH (W/Ref FT4) 0.64 uIU/mL (0.36-3.74); Total Protein 8.1 g/dL (6.4-8.2)
[2023-04-23 06:57] LABS: Glucose 723 mg/dL (74-106)
[2023-04-23 06:58] LABS: Sodium 124 mmol/L (136-145)
[2023-04-23 07:06] LABS: COVID-19 PCR Negative (Negative); Influenza A PCR Negative (Negative); Influenza B PCR Negative (Negative); RSV PCR Negative (Negative)
[2023-04-23] MEDS: cefTRIAXone 1 GM/50 ML BAG IVPB ×2 (07:16→12:39)
[2023-04-23] MEDS: dilTIAZem CD 120 MG CAPCR PO (07:22)
[2023-04-23 07:23] LABS: Source Nasopharynx
[2023-04-23] MEDS: Insulin REGULAR-Human 100 UNITS/ML UNIT 8 UNITS SC (07:27)
--- NOTE | 2023-04-23 07:54 | NUR.NOTE ---
patient stated she had workman in her wallet. Money was counted with patient, 2 nurses and security. Money was placed in envelope by security officers and guards. Nursing Note:
[2023-04-23] MEDS: Insulin Glargine 300 UNITS/3 ML PEN 20 UNITS SC ×2 (08:31→23:00)
--- NOTE | 2023-04-23 10:28 | HPE_ITS ---
Date of service: 04/23/23 Time of Service: 10:28 Assessment and Plan Assessment and plan (1) Encephalopathy acute: Status: Acute Assessment and plan: multifactorial with acute infection, hyperosmolar state, (2) Acute UTI: Status: Acute Assessment and plan: chronic indwelling suprapubic catheter. cultures pending. will continue ceftriaxone day 06/28 will need catheter change (3) Diabetic hyperosmolar non-ketotic state: Status: Acute Assessment and plan: likely d/t poor compliance and altered mental status. will hydrate, provide insulin with blood sugar checks ac/hs diabetic diet diabetes counseling. hemoglobin A1C 10.1 in December 2022 (4) Chronic kidney disease (CKD): Status: Chronic Assessment and plan: above baseline at 1.6 insetting of dehydration likely. will hydrate, avoid nephrotoxic drugs, renal dosing per pharmacy recommendations close intake and output. maintain hodge catheter. (5) Urinary retention: Status: Acute Assessment and plan: chronic suprapubic catheter will be changed out. monitor I&O, no sign of obstruction (6) Atrial fibrillation and flutter: Status: Chronic Assessment and plan: continue cardizem and metoprolol and monitor fully anticoagulated on xarelto discussed with Dr Bonilla. History of Present Illness History of Present Illness Chief Complaint: altered mental status Review of Systems All systems reviewed & are unremarkable except as noted in HPI and below PFSH All Active Problems (Updated 04/24/23 @ 12:08 by Rema Santana NP) Encephalopathy acute (Acute) Diabetic hyperosmolar non-ketotic state (Acute) AMS (altered mental status) (Acute) Acute UTI (Acute) Acute hyperglycemia (Acute) Full code status (Acute) Advance care planning (Acute) Brain TIA (Acute) Vitamin B12 deficiency (Acute) CVA (cerebral vascular accident) (Chronic) Impaired instrumental activities of daily living (Acute) DNR (do not resuscitate) (Acute) Loneliness (Acute) Chronic kidney disease (CKD) (Chronic) Venous stasis dermatitis (Acute) Decreased activities of daily living (ADL) (Acute) Need for home health care (Acute) Nephrolithiasis (Chronic) Sacral decubitus ulcer, stage II (Acute) Wound of right lower extremity (Acute) Hyperglycemia (Acute) Trochanteric bursitis, right hip (Acute) Right ankle sprain (Acute) Hip pain, right (Acute) GI bleed (Acute) Fracture, lumbar vertebra, compression (Acute) PSVT (paroxysmal supraventricular tachycardia) (Acute) Urinary retention (Acute 03/31/16) Poorly controlled diabetes mellitus (Chronic) Transient neurologic deficit (Acute) Fungal dermatitis (Acute) Atrial flutter (Acute) Vaginal bleeding, abnormal (Acute) Atrial fibrillation and flutter (Chronic) Diabetes mellitus type 2 in obese (Acute) Fracture of femoral neck, right (Acute) Retention, urine (Acute) Medical History (Updated 04/24/23 @ 12:08 by Rema Santana NP) Infestation by bed bug Hx of malignant melanoma GERD (gastroesophageal reflux disease) H/O menorrhagia Supraventricular tachycardia History of traumatic fracture of hip Unsteady gait Hard of hearing Vision changes Anemia 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 Palliative care encounter Pulmonary hypertension Multiple rib fractures involving four or more ribs Hypertension S/P right hip fracture TIA (transient ischemic attack) Hyperlipidemia Atrial fibrillation CHF (congestive heart failure) LVEF 50-55%, diastolic dysfunction Diabetes Cataracts, bilateral Surgical History History of bilateral cataract extraction History of suprapubic catheter Status post right hip replacement Family History Other Diabetes Heart disease Hyperlipidemia Hypertension Stroke Social History Smoking/Tobacco Use Status: Former Tobacco Use Smoking risk assessment performed?: Yes Alcohol Intake: never Drug use: Never Substance use type: does not use Household members: none Housing: apartment Do you feel safe at home: Yes Do you feel safe in your relationship?: Yes Additional Social history: Lives alone. [address] Does not drive. Meds Allergies and Home Medications Allergies Allergy/AdvReac Type Severity Reaction Status Date / Time trazodone AdvReac Intermediate NIGHTMARES Verified 04/23/23 06:03 Home Medications Medication Instructions Recorded Confirmed Type lisinopril 10 mg tablet 10 mg PO DAILY 05/12/19 04/23/23 History nystatin 100,000 unit/gram topical 1 applic topical BID PRN itching 10/31/20 01/26/23 Rx powder #60 grams insulin glargine 100 unit/mL (3 20 unit (0.2 mL) subcut HS #15 mL 06/08/21 08/07/23 Rx mL) subcutaneous pen (Lantus Solostar U-100 Insulin) metoprolol succinate 100 mg 100 mg PO DAILY #0 tabs 11/27/20 04/23/23 Rx tablet,extended release 24 hr rivaroxaban 15 mg tablet (Xarelto) 15 mg PO DAILY 07/31/21 01/26/23 History furosemide 20 mg tablet 20 mg PO DAILY #30 tabs 08/02/21 01/26/23 Rx magnesium oxide 400 mg (241.3 mg 400 mg PO DAILY #30 tabs 08/02/21 04/23/23 Rx magnesium) tablet (MagOx) metformin 1,000 mg tablet 1,000 mg PO BID #60 tabs 08/02/21 04/23/23 Rx omeprazole 20 mg capsule,delayed 20 mg PO DAILY #30 caps 08/02/21 01/26/23 Rx release diltiazem HCl 120 mg 120 mg PO DAILY 10/16/21 01/26/23 History capsule,extended release 24 hr empagliflozin 10 mg tablet 10 mg PO DAILY 10/16/21 04/23/23 History (Jardiance) insulin lispro 100 unit/mL See Rx Instructions subcut QMEALS 12/17/21 01/26/23 History subcutaneous pen (Humalog KwikPen (U-100) Insulin) diaper,brief,adult,disposable #100 ea 09/30/22 01/26/23 Rx (Depend Underwear For Women Large) aspirin 81 mg chewable tablet 81 mg PO DAILY #0 tabs 12/31/22 01/26/23 Rx (Children's Aspirin) ciprofloxacin HCl 250 mg tablet 250 mg PO BID #11 tabs 12/31/22 01/26/23 Rx (Cipro) atorvastatin 20 mg tablet 80 mg PO HS 01/26/23 01/26/23 History Results Labs 04/24/23 06:10 04/24/23 06:10 Labs: Laboratory Results - last 24 hr 04/23/23 04/23/23 04/23/23 06:10 06:10 06:10 WBC 8.93 RBC 4.67 Hgb 11.9 Hct 37.8 MCV 81 MCH 25.5 L MCHC 31.5 L RDW 15.5 H Plt Count 406 H MPV 10.8 Immature Gran % 0.6 Neutrophils % 80.2 Lymphocytes % 12.4 Monocytes % 6.0 Eosinophils % 0.4 Basophils % 0.4 Nucleated RBC % 0.0 Absolute Neutrophils 7.15 H Absolute Lymphocytes 1.11 L Absolute Monocytes 0.54 Absolute Eosinophils 0.04 Absolute Basophils 0.04 PT 11.4 H INR 1.1 APTT 26.3 VBG pH 7.35 VBG pCO2 40 L VBG pO2 39 VBG HCO3 22 L VBG Total CO2 21 L VBG O2 Saturation 68 VBG Base Excess -3 L Sodium 124 L* Potassium 5.1 Chloride 89 L Carbon Dioxide 21.4 Anion Gap 13.6 H BUN 29 H Creatinine 1.6 H Est GFR (CKD-EPI 2020) 33.63 Glucose 723 H* Calcium 9.9 Magnesium 1.9 Cancelled Total Bilirubin 0.5 AST 18 ALT 22 Alkaline Phosphatase 66 NT-Pro-B Natriuret Pep 524 H Cancelled Total Protein 8.1 Albumin 3.8 TSH 0.64 Urine Color Straw Urine Clarity Cloudy Urine pH 6.0 Ur Specific [place] 1.010 Urine Protein Negative Urine Ketones 15 H Urine Blood Trace-intact H Urine Nitrite Negative Urine Bilirubin Negative Urine Urobilinogen 0.2 Ur Leukocyte Esterase Small H Urine RBC Urine WBC 5-10 Ur Epithelial Cells Negative Urine Crystals Moderate Amorphous Urine Bacteria Moderate Urine Mucus Negative Urine Other Many Yeast Ur Culture Indicated? Yes Urine Glucose 500 H Urine Opiates Screen Negative Urine Methadone Screen Negative Ur Barbiturates Screen Negative Ur Tricyclics Screen Negative Ur Amphetamines Screen Negative U Benzodiazepines Scrn Negative Urine Cocaine Screen Negative Ur THC Screen Negative COVID-19 Source Nasopharynx SARS-CoV-2 (PCR) Negative Influenza Type A (PCR) Negative Influenza Type B (PCR) Negative RSV (PCR) Negative Last Vital Signs Temp 37.0 C 04/23/23 06:05 Pulse 134 H 04/23/23 08:30 Resp 16 04/23/23 08:40 BP 132/77 04/23/23 08:30 Pulse Ox 92 04/23/23 08:40 Time Spent Time spent with Patient: 55-74 minutes Time was spent: preparing to see the patient(eg.review tests), obtaining and/or reviewing separately otained hiistory, ordering medications,tests, procedures, referring, communicating with other health wound care coordinator and indepentently interpreting results
[2023-04-23] MEDS: Normal Saline 1,000 ML 250 ML IV (11:23)
[2023-04-23] MEDS: Omeprazole 20 MG CAPCR PO (11:27)
[2023-04-23] MEDS: Metoprolol CR 100 MG TABCR PO (11:27)
[2023-04-23] MEDS: Aspirin 81 MG CHEW PO (11:27)
[2023-04-23] MEDS: Lisinopril 10 MG TAB PO (11:27)
[2023-04-23] MEDS: Insulin Aspart 300 UNITS/3 ML PEN SC ×3 (11:27→21:00)
[2023-04-23] MEDS: Empaglifozin 10 MG TAB PO (11:27)
[2023-04-23] MEDS: Rivaroxaban 15 MG TABLET PO (11:27)
--- NOTE | 2023-04-23 12:00 | W.INDIABCONS ---
Date of service: 04/23/23 Time of Service: 12:00 Diabetes Inpatient Consult Reason for Visit: diabetes education DESCRIPTION/ASSESSMENT: Consult acknowledged for diabetes education for Ms. Busby. She is currently with altered mental status. Her blood sugars are very high and hyperosmolar non ketotic state is noted in her h and P. A1C in December was 10.1. She is ordered for a cho consistent low sodium diet. There is no data yet on how she is eating. BMI is 36.6. kg/m2 which is c/w class 2 obesity. Looking at her weight history, her weight has been stable over the past year. She is getting 20 mg of Glargine SC HS, 10 mg of Empaglifozin daily, and aspart at meal times. INTERVENTION: Will meet with Ms. Busby about her diabetes management when her mental status clears. If not, we can meet with a family member or caregiver. She may end up requiring an increase in her Glargine while she is an inpatient as well as meal time carbohydrate correction in addition to her mealtime correction. PLAN: Will monitor her progress. Will monitor weight, PO, blood sugars and will evaluate her nutrition and diabetes careplan ongoing and adjust as needed. Time Spent in Nutritional Counseling and Treatment: 0
[2023-04-23] MEDS: Insulin Glargine 300 UNITS/3 ML PEN 10 UNITS SC (13:38)
[2023-04-23] MEDS: Insulin Aspart 300 UNITS/3 ML PEN 18 UNITS SC (13:39)
[2023-04-23 13:47] LABS: Anion Gap 15.3 mmol/L (3-11); BUN 26 mg/dL (7-18); CO2 16.7 mmol/L (21.0-32.0); CREATININE 1.5 mg/dL (0.55-1.02); Calcium 9.4 mg/dL (8.5-10.1); Chloride 94 mmol/L (98-107); Estimated GFR 36.34 (mL/min/1.73m2); Potassium 5.7 mmol/L (3.5-5.1); Sodium 126 mmol/L (136-145)
[2023-04-23 13:48] LABS: Glucose 537 mg/dL (74-106)
[2023-04-23] MEDS: Acetaminophen 325 MG TAB PO (20:53)
[2023-04-23] MEDS: Atorvastatin 40 MG TAB 80 MG PO (23:27)
[2023-04-24] VITALS (8 sets, daily range): BP systolic 82–118; BP diastolic 52–88; PULSE 72–110; RESP 16–18; TEMP 36.1–36.4; O2SAT 94–99
[2023-04-24 06:34] LABS: HCT 34.9 % (36.0-46.0); HGB 10.9 g/dL (11.2-15.7); MCH 25.1 pg (27.0-33.0); MCHC 31.2 % (32.0-36.0); MCV 80 fL (80-95); MPV 10.8 fL (8.0-11.0); Platelet Count 379 10^3/uL (130-400); RBC 4.34 10^6/uL (3.93-5.22); RDW 15.4 % (11.7-14.6); RDW-SD 44.9 fL; WBC 9.31 10^3/uL (4.4-10.8)
[2023-04-24 06:54] LABS: Anion Gap 9.6 mmol/L (3-11); BUN 20 mg/dL (7-18); CO2 24.4 mmol/L (21.0-32.0); CREATININE 1.2 mg/dL (0.55-1.02); Calcium 9.3 mg/dL (8.5-10.1); Chloride 102 mmol/L (98-107); Glucose 121 mg/dL (74-106); Magnesium 1.9 mg/dL (1.8-2.4); Potassium 4.1 mmol/L (3.5-5.1); Sodium 136 mmol/L (136-145)
[2023-04-24] MEDS: dilTIAZem CD 120 MG CAPCR PO (08:16)
[2023-04-24] MEDS: Rivaroxaban 15 MG TABLET PO (08:16)
[2023-04-24] MEDS: Aspirin 81 MG CHEW PO (08:16)
[2023-04-24] MEDS: Omeprazole 20 MG CAPCR PO (08:17)
[2023-04-24] MEDS: Empaglifozin 10 MG TAB PO (08:17)
[2023-04-24] MEDS: Lisinopril 10 MG TAB PO (08:17)
[2023-04-24] MEDS: Metoprolol CR 100 MG TABCR PO (08:17)
[2023-04-24] MEDS: Magnesium Oxide 400 MG TAB PO (08:17)
[2023-04-24] MEDS: Insulin Aspart 300 UNITS/3 ML PEN SC ×4 (08:20→21:53)
--- NOTE | 2023-04-24 08:30 | IN_ITS ---
PT Notes Visit Reasons: Hyperglycemic hyperosmolar non-ketotic syndrome, U Physical Therapy Inpatient Initial Evaluation Date:04/24/2023 Referring Doctor: Bebeto Ruggiero MD PT Orders: PT CONSULT: Eval/Treat Precautions: Fall. Standard. Activity as tolerated. Patient Profile/Admitting Diagnosis: Hope is a 72-year-old female who presented to the ED via EMS on 04/23/2023 with altered mental status and generalized weakness. Patient is diagnosed with urinary tract infection, altered mental status, CKD, urinary retention, atrial flutter/fibrillation. PMHX: All Active Problems (Updated 04/24/23 @ 12:08 by Rema Santana NP) Encephalopathy acute (Acute) Diabetic hyperosmolar non-ketotic state (Acute) AMS (altered mental status) (Acute) Acute UTI (Acute) Acute hyperglycemia (Acute) Full code status (Acute) Advance care planning (Acute) Brain TIA (Acute) Vitamin B12 deficiency (Acute) CVA (cerebral vascular accident) (Chronic) Impaired instrumental activities of daily living (Acute) DNR (do not resuscitate) (Acute) Loneliness (Acute) Chronic kidney disease (CKD) (Chronic) Venous stasis dermatitis (Acute) Decreased activities of daily living (ADL) (Acute) Need for home health care (Acute) Nephrolithiasis (Chronic) Sacral decubitus ulcer, stage II (Acute) Wound of right lower extremity (Acute) Hyperglycemia (Acute) Trochanteric bursitis, right hip (Acute) Right ankle sprain (Acute) Hip pain, right (Acute) GI bleed (Acute) Fracture, lumbar vertebra, compression (Acute) PSVT (paroxysmal supraventricular tachycardia) (Acute) Urinary retention (Acute 03/31/16) Poorly controlled diabetes mellitus (Chronic) Transient neurologic deficit (Acute) Fungal dermatitis (Acute) Atrial flutter (Acute) Vaginal bleeding, abnormal (Acute) Atrial fibrillation and flutter (Chronic) Diabetes mellitus type 2 in obese (Acute) Fracture of femoral neck, right (Acute) Retention, urine (Acute) Medical History (Updated 04/24/23 @ 12:08 by Rema Santana NP) Infestation by bed bug Hx of malignant melanoma GERD (gastroesophageal reflux disease) H/O menorrhagia Supraventricular tachycardia History of traumatic fracture of hip Unsteady gait Hard of hearing Vision changes Anemia 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 Palliative care encounter Pulmonary hypertension Multiple rib fractures involving four or more ribs Hypertension S/P right hip fracture TIA (transient ischemic attack) Hyperlipidemia Atrial fibrillation CHF (congestive heart failure) LVEF 50-55%, diastolic dysfunctionDiabetes Cataracts, bilateral Surgical History History of bilateral cataract extraction History of suprapubic catheter Status post right hip replacement Social History/Home Situation: Lives on the third floor of the [facility] apartment. She has a ramp to enter and an elevator that leads to her apartment. Transportation via [facility]. Modified independent using single-point cane prior to admission. Equipment Owned/DME: Standard walker, 4WW, FWW, SPC Subjective: Agreeable to PT consult. Feels much better. Hoping to try out walking using 4WW. Denies headache and chest pain throughout session. Objective: General Observation: Resting on bedside chair. Telemetry monitoring in place. Erythema to L leg. Mental Status: Alert and orieneted x 4 Pain: Denies Vital Signs: WFL as closely monitored by telemetry ROM: Right Upper Extremity: Shoulder Flexion WFL. Shoulder abduction WFL. Shoulder ER/IR WFL. Elbow flexion WFL. Forearm pronation/supination WFL. Wrist flexion WFL. Opening and closing of hand WFL. Left Upper Extremity: Shoulder Flexion WFL. Shoulder abduction WFL. Shoulder ER/IR WFL. Elbow flexion WFL. Forearm pronation/supination WFL. Wrist flexion WFL. Opening and closing of hand WFL. Right Lower Extremity: Hip flexion WFL. Hip abduction WFL. Hip ER/IR WFL. Knee flexion 10 to 90 degrees. Knee extension -10 degrees. Ankle dorsiflexion to neutral only. Ankle plantarflexion/inversion WFL. Left Lower Extremity: Hip flexion WFL. Hip abduction WFL. Hip ER/IR WFL. Knee flexion 30 to 90 degrees. Knee extension -30 degrees. Ankle dorsiflexion to neutral only. Ankle plantarflexion WFL. Strength: Right Upper Extremity: Shoulder flexors 4-/5. Shoulder abductors 4-/5. Elbow flexors 4-/5. Elbow extensors 4-/5. Automobile Racer strong. Left Upper Extremity: Shoulder flexors 4-/5. Shoulder abductors 4-/5. Elbow flexors 4-/5. Elbow extensors 4-/5. Automobile Racer strong. Right Lower Extremity: Hip flexors 4-/5. Hip abductors 4-/5. Knee flexors 3-/5. Knee extensors 3-/5. Ankle dorsiflexors 3-/5. Ankle plantarflexors 4-/5. Left Lower Extremity: Hip flexors 4-/5. Hip abductors 4-/5. Knee flexors 3-/5. Knee extensors 3-/5. Ankle dorsiflexors 3-/5. Ankle plantarflexors 4-/5. Sensation: Intact as to pain and light pressure in bilateral lower extremities Bed Mobility/Transfers: Sit to stand stand by assist with cues provided for use of B hands for support Stand to sit stand by assist with cues provided for use of B hands for support Bed to chair stand by assist with cues provided for use of B hands for support Chair to bed stand by assist with cues provided for use of B hands for support Gait: Facilitated safe and correct performance of level surface ambulation covering a distance of 300 feet using 4 wheeled walker with no report of increased pain, chest pain, and lightheadedness; minimal verbal cueing provided for walker management, posture, and limb advancement. Balance: Static Sitting: Normal Dynamic Sitting: Normal Static Standing: Fair Dynamic Standing: Fair Special Tests: Mobility Limitations Standardized Measure [facility] 6 clicks Basic Mobility Inpatient Short Form: Raw Score: 23 CMS Score: 11% deficit 4-Stage Balance test: Feet together 10 seconds Semi-tandem unable Full tandem unable One-legged stance unable Informed Consent/Education: Patient instructed in purpose of PT consult and plan of care. Agreeable to proceed with established PT POC to achieve personal goals. ASSESSMENT: Hope requires the use of a four-wheeled walker for all mobility ADL performance and s contact-guard assist PT at time of evaluation. She is in no need of any equipment as she has them all at home. She will benefit from PT services to progress mobility level using SPC per prior levl of function. Patient presents with clinical signs and symptoms consistent with current/admitting diagnoses that have resulted to mobility limitations, gait instability, generalized weakness, and impairment of motor control as demonstrated by the following impairment level findings: 1. Decreased strength to B LE major muscle groups 2. Impaired standing balance 3. Impaired activity tolerance Impairments are contributing to the following functional limitations: 1. Inability to safely ambulate without assistive device and physical assistance 2. Increase completion time for mobility ADL performance 3. Increased risk for falls Patient is assessed as a 08522 moderate complexity based on the following: History: 71 [id number] with past medical history as indicated above Examination: Demonstrable impairment in strength, balance, and mobility level with underlying impairments and functional limitations as exhibited above as well as deficit score of 47% utilizing the [facility] Mobility Inpatient Short Form Presentation: Evolving Decision Makin moderate complexity Goals: Goals X1 week 1. Supine-Sit independent 2. Sit-Supine independent 3. Sit-Stand independent 4. Stand-Sit independent 5. Bed-Chair independent 6. Chair-Bed independent 7. Independent gait on level surface with use of least restrictive device for at least 300 feet without report of pain nor dyspnea 8. Independent stair negotiation while holding onto bilateral rails for at least 10 steps without report of pain nor dyspnea 9. Independent with home exercise program 10. Good static and dynamic standing balance/tolerance Plan of Care/Treatment Plan: 1-2x/day, 7 days/week x 1 week. Plan of care has been reviewed with the PLASTIC TECHNICIAN providing the service under Physical Therapy direction. Initiate Physical Therapy intervention for pain management as needed, strengthening, bed mobility, transfers, gait, stairs, balance training, and use of assistive device. DISCHARGE RECOMMENDATIONS: Home with no services [] [X] Home with services. Patient will benefit from home health PT services in order to progress mobility level using least restrictive assistive ambulatory device, assess home safety, identify additional equipment needs, and establish a functional maintenance program that will increase ability of patient to remain at home. [] Home with outpatient PT [] [] SNF for continued rehabilitation [] [] [facility] [] [] SNF versus LTC based on ability to participate and progress [] TREATMENT CODE/TIME: 97119 x 20 minutes for 1 unit beginning at 8:30 AM. Thank you for the opportunity to participate in the care of this patient. Sue Dejesus PT, DPT, CLT [facility] [place], [place]
[2023-04-24] MEDS: cefTRIAXone 2 GM/50 ML BAG IVPB (09:00)
--- NOTE | 2023-04-24 10:27 | INITIAL_ITS ---
Date of service: 04/24/23 Time of Service: 10:27 Care Management Initial Assmt Initial Assessment REASON FOR HOSPITALIZATION:: Hyperglycemic hyperosmolar non-ketotic syndrome, AMS PREVIOUS FUNCTIONAL STATUS/SOCIAL/FAMILY SUPPORTS:: Hope lives alone in the [address] in [facility]. She had a rn case manager hospice, Zoey Noyola, through [employer] [facility], who recently retired; Hope is not sure who has been reassigned; CM will send referral for follow up. She also has support from [facility] and [facility] and has [facility] moderate needs. She is independent at baseline, and uses a cane. CURRENT FUNCTIONAL STATUS:: Hope was sitting up in her chair when CM met with her. She stated that she is doing well today, and that per provider, she will likely be ready for discharge tomorrow. She is happy with this plan. CM discussed HH services with Hope. She stated that she has been doing ok at home without services, but she feels that she may benefit from HH PT for a short time post hospitalization. CM will continue to follow. ADVANCE DIRECTIVES:: Katharina GAINES Has patient been provided with info about the portal/API?: Yes Did the patient sign up for the portal?: No CODE STATUS:: Full Code INSURANCE COVERAGE / FINANCIAL ISSUES:: [facility] MCR replacement. FRANCISCO J. CURRENT HOME/COMMUNITY SERVICES/EQUIPMENT:: [employer] case management, [facility], [facility] PRIMARY CARE PHYSICIAN:: Dean Camilo POTENTIAL DISCHARGE NEEDS:: New services; [facility] transport, follow up appointments. PATIENT/FAMILY EDUCATION NEEDS:: Review discharge instructions and limitations, discussion of self care needs including ask me three. ANTICIPATED BARRIERS TO DISCHARGE:: None identified. TRANSPORTATION:: Via private vehicle [facility] PLAN:: Anticipate Hope will return home when medically cleared. CM will coordinate her [facility] private vehicle transport home. She will follow up with her PCP and discharge plan of care. CM will continue to follow. PFSH All Active Problems (Updated 04/24/23 @ 12:14 by Rema Santana NP) DVT prophylaxis (Acute) Discharge planning issues (Acute) Diabetic hyperosmolar non-ketotic state (Acute) AMS (altered mental status) (Acute) Acute UTI (Acute) Acute hyperglycemia (Acute) Full code status (Acute) Advance care planning (Acute) Brain TIA (Acute) Vitamin B12 deficiency (Acute) CVA (cerebral vascular accident) (Chronic) Impaired instrumental activities of daily living (Acute) DNR (do not resuscitate) (Acute) Loneliness (Acute) Chronic kidney disease (CKD) (Chronic) Venous stasis dermatitis (Acute) Decreased activities of daily living (ADL) (Acute) Need for home health care (Acute) Nephrolithiasis (Chronic) Sacral decubitus ulcer, stage II (Acute) Wound of right lower extremity (Acute) Hyperglycemia (Acute) Trochanteric bursitis, right hip (Acute) Right ankle sprain (Acute) Hip pain, right (Acute) GI bleed (Acute) Fracture, lumbar vertebra, compression (Acute) PSVT (paroxysmal supraventricular tachycardia) (Acute) Urinary retention (Chronic 03/31/16) Poorly controlled diabetes mellitus (Chronic) Transient neurologic deficit (Acute) Fungal dermatitis (Acute) Atrial flutter (Acute) Vaginal bleeding, abnormal (Acute) Atrial fibrillation and flutter (Chronic) Diabetes mellitus type 2 in obese (Acute) Fracture of femoral neck, right (Acute) Retention, urine (Acute) Medical History (Updated 04/24/23 @ 12:14 by Rema Santana NP) Infestation by bed bug Hx of malignant melanoma GERD (gastroesophageal reflux disease) H/O menorrhagia Supraventricular tachycardia History of traumatic fracture of hip Unsteady gait Hard of hearing Vision changes Anemia 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 Palliative care encounter Pulmonary hypertension Multiple rib fractures involving four or more ribs Hypertension S/P right hip fracture TIA (transient ischemic attack) Hyperlipidemia Atrial fibrillation CHF (congestive heart failure) LVEF 50-55%, diastolic dysfunction Diabetes Cataracts, bilateral Surgical History History of bilateral cataract extraction History of suprapubic catheter Status post right hip replacement Family History Other Diabetes Heart disease Hyperlipidemia Hypertension Stroke Social History Smoking/Tobacco Use Status: Former Tobacco Use Smoking risk assessment performed?: Yes Alcohol Intake: never Drug use: Never Substance use type: does not use Household members: none Housing: apartment Do you feel safe at home: Yes Do you feel safe in your relationship?: Yes Additional Social history: Lives alone. [address] Does not drive.
--- NOTE | 2023-04-24 10:58 | NUR.NOTE ---
[employer]EM[employer] places new leads on patient that resolves non stop alarming. Patient's actual heart rate is now showing in the 80's. Telemetry had been counting the T wave but same is no longer the case.Nursing Note:
--- NOTE | 2023-04-24 12:10 | PGE_ITS ---
Date of Service Date of service: 04/24/23 Time of Service: 12:10 Assessment and Plan Assessment and plan (1) Encephalopathy acute: Status: Resolved Assessment and plan: multifactorial with acute infection, hyperosmolar state, resolved and at baseline (2) Acute UTI: Status: Acute Assessment and plan: chronic indwelling suprapubic catheter. cultures pending. will continue ceftriaxone day 2/7 catheter change yesterday (3) Diabetic hyperosmolar non-ketotic state: Status: Acute Assessment and plan: blood sugars improved continue to provide insulin with blood sugar checks ac/hs diabetic diet diabetes counseling. hemoglobin A1C 10.1 in December 2022 (4) Chronic kidney disease (CKD): Status: Chronic Assessment and plan: improved after hydration avoid nephrotoxic drugs, renal dosing per pharmacy recommendations close intake and output. maintain hodge catheter. (5) Urinary retention: Status: Chronic Assessment and plan: chronic suprapubic catheter will be changed out. monitor I&O, no sign of obstruction (6) Atrial fibrillation and flutter: Status: Chronic Assessment and plan: continue cardizem and metoprolol and monitor fully anticoagulated on xarelto (7) DVT prophylaxis: Status: Acute Assessment and plan: fully anticoagulated on xarelto (8) Discharge planning issues: Status: Acute Assessment and plan: palliative pateint, will place consult while hospitalized for continuity of care anticipate discharge to home tomorrow if remains medically stable discussed with Dr Knight Subjective Subjective Patient reports: no new complaints, feels better, tolerating liquids well, tolerating a regular diet and afebrile Interval history since last seen: appears back to her baseline with no current c/o. tolerating oral well, out of bed and ambulating Exam Const General: cooperative and no acute distress Orientation: alert, awake and oriented x3 HENMT Head: normal to inspection General nose exam: external nose normal Face and sinus: normal facial exam Mouth: oral mucosae normal Eyes General: appearance normal, both eyes and all related structures Eyelids: eyelids normal EOM: EOM intact bilaterally Neck Neck: normal visual inspection Lymphatic: no lymphadenopathy noted Chest Chest: normal inspection of the chest Resp Effort & Inspection: normal respiratory effort and able to speak in complete sentences Auscultation: clear to auscultation bilaterally Cardio Rate: regular rate Rhythm: regular rhythm GI Inspection: normal to inspection Palpation: soft and nontender Auscultation: normal bowel sounds Skin General skin exam: no rashes or lesions noted Neuro General: patient alert, patient awake and moves all extremities Cognition: normal cognition Speech: speech normal Gait: normal gait Motor: muscle tone normal throughout Sensory Exam: no sensory deficits noted Extrem General: full ROM and capillary refill normal Psych Appearance: grossly normal Mental Status: mental status grossly normal Speech and Movement: speech and movement normal Affect: normal affect Thought Process: normal Objective Last Vital Signs Temp 36.4 C L 04/24/23 10:59 Pulse 95 H 04/24/23 10:59 Resp 18 04/24/23 10:59 BP 82/53 L 04/24/23 10:59 Pulse Ox 99 04/24/23 10:59 Laboratory Results - last 24 hr 04/23/23 04/24/23 13:05 06:10 WBC 9.31 RBC 4.34 Hgb 10.9 L Hct 34.9 L MCV 80 MCH 25.1 L MCHC 31.2 L RDW 15.4 H Plt Count 379 MPV 10.8 Sodium 126 L 136 D Potassium 5.7 H 4.1 D Chloride 94 L 102 Carbon Dioxide 16.7 L 24.4 Anion Gap 15.3 H 9.6 BUN 26 H 20 H Creatinine 1.5 H 1.2 H Est GFR (CKD-EPI 2020) 36.34 47.50 Glucose 537 H* 121 H Calcium 9.4 9.3 Magnesium 1.9 Time Spent with Patient Time Spent with Patient: 35-49 minutes Time was spent: preparing to see the patient(eg.review tests), obtaining and/or reviewing separately otained hiistory, ordering medications,tests, procedures, referring, communicating with other health district manager primary care sales and indepentently interpreting results
--- NOTE | 2023-04-24 14:18 | PT.INTREAT ---
Date of service: 04/24/23 Time of Service: 14:00 PT Notes Visit Reasons: Hyperglycemic hyperosmolar non-ketotic syndrome, U Inpatient Physical Therapy Treatment Note [facility] Date: 04/24/23 PRECAUTIONS: Fall, standard, activity as tolerated SUBJECTIVE: Patient appears to be very hard of hearing. Reports that she is relieved to be going home tomorrow. OBJECTIVE: Sitting up in chair. Barber in place. IV access LUE. Agreeable to therapy. ? PAIN: none reported VITALS: monitored by nursing staff. ? BED MOBILITY/TRANSFERS? Rolling L/R: not assessed Supine-sit: not assessed ? Sit-supine: not assessed ? Sit-stand: SBA ? Stand-sit: SBA ? Bed-Chair: SBA ? Chair-bed: SBA Gait Training ([id number]): Direct one-on-one instruction and skilled instruction in: [x] employing an assistive device [] modified weight-bearing status [] movement sequencing [x] turning and movement with proper form [x] Provided verbal cues for equipment management and technique [] Provided instruction in gait pattern [] Patient education regarding pacing and breathing techniques to maximize activity tolerance? GAIT? Assistive Device: 4ww, SPC? Weight bearing: full Assist: SBA ? Distance:? 300 feet with 4ww, 150 feet with SPC? Deviation: Gait with 4ww largely unremarkable - adequate toe off, heel strike, symmetrical gait pattern, even step length of approximately 1.5 feet, no LOB, no SOB. Gait with SPC asymmetrical and unsteady, with much shorter step length of ~8-10 inches. Toe out becomes more pronounced, base of support widens. LOB observed x3, patient able to recover independently each time. Recommended that patient use 4ww or fww preferentially over SPC. ? ASSESSMENT:? Patient tolerates therapy well, no c/o pain or dyspnea although she does mention feeling tired especially on her left side, upper and lower extremeties. PLAN: Continue global strengthening per plan of care until patient is medically cleared for discharge. Continue to educate on safe gait patterns, observe ambulation with SPC at least once more. TREATMENT CODE/TIME: 16 minutes beginning at 14:00.
--- NOTE | 2023-04-24 16:28 | CHAPLAIN ---
Hope was up in the chair when I visited. She was very pleasant. We remembered meeting each other on her previous admission. Hope lives at [address] [facility] [address] and said she fell and couldn't get up so she yelled for help and eventually a man came and called 911 for her. Hope said she is getting some good rest and here and feeling better.
[2023-04-24] MEDS: Atorvastatin 40 MG TAB 80 MG PO (21:53)
[2023-04-24] MEDS: Insulin Glargine 300 UNITS/3 ML PEN 20 UNITS SC (21:53)
[2023-04-25 03:10] VITALS: BP 97/61; PULSE 91; RESP 18; TEMP 36.4; O2SAT 92
[2023-04-25 07:39] VITALS: BP 116/78; PULSE 93; RESP 18; TEMP 36.2; O2SAT 97
[2023-04-25] MEDS: Magnesium Oxide 400 MG TAB PO (07:46)
[2023-04-25] MEDS: Metoprolol CR 100 MG TABCR PO (07:46)
[2023-04-25] MEDS: Omeprazole 20 MG CAPCR PO (07:46)
[2023-04-25] MEDS: dilTIAZem CD 120 MG CAPCR PO (07:46)
[2023-04-25] MEDS: Aspirin 81 MG CHEW PO (07:46)
[2023-04-25] MEDS: Lisinopril 10 MG TAB PO (07:46)
[2023-04-25] MEDS: Empaglifozin 10 MG TAB PO (07:47)
[2023-04-25] MEDS: Rivaroxaban 15 MG TABLET PO (07:47)
[2023-04-25] MEDS: Insulin Aspart 300 UNITS/3 ML PEN SC ×4 (07:47→21:22)
[2023-04-25] MEDS: cefTRIAXone 2 GM/50 ML BAG IVPB (11:12)
[2023-04-25] MEDS: Normal Saline Flush 10 ML SYR IVP (11:14)
--- NOTE | 2023-04-25 11:29 | W.PM.DS.N ---
Date of service: 04/26/23 Time of Service: 11:29 DS: Diagnosis Discharge Diagnosis (1) Encephalopathy acute: Status: Resolved (2) Acute UTI: Status: Acute (3) Diabetic hyperosmolar non-ketotic state: Status: Acute (4) Chronic kidney disease (CKD): Status: Chronic (5) Urinary retention: Status: Chronic (6) Atrial fibrillation and flutter: Status: Chronic Discharge Plan Disposition Patient Disposition: Home W/Home Health Services Condition: Stable Discharge Details Reason For Visit: Hyperglycemic hyperosmolar non-ketotic syndrome, U Admit Date/Time: 04/23/23 07:39 Admit Provider: Bebeto Ruggiero Attending Provider: Bebeto Ruggiero Primary Care Provider: Dean Camilo Hospital Course Hospital Course: This is a 72-year-old female with a past medical history significant for diabetes mellitus type 2 urinary retention with suprapubic catheter chronic kidney disease TIA who presented to the emergency department with altered mental status. Her work-up in the emergency department did show diabetic hyperosmolar nonketotic state and urinary tract infection. On admission sodium of 124 but when corrected for glucose was in the normal range. She was given IV fluids, started on ceftriaxone while urine cultures pending. Her suprapubic catheter was changed out, hospitalist services was contacted and she was admitted to the medical surgical unit for further management. Hemodynamically she was stable with no signs of sepsis. Overnight her encephalopathy resolved. Blood sugars better managed. She was thought to be at her baseline. She has been safely really ambulated. She is eating and drinking. She has remained afebrile. Her urine culture grew Serratia marcescens which was sensitive to the cephalosporins. She will be down stepped to cefpodoxime at discharge to complete a 7-day course. There have been no changes to her outpatient medication regimen. She is being discharged to home with home health services including nursing for oversight of her diabetes management and new addition of antibiotic for 5 days and PT OT for routine evaluation including home safety eval and gait training and home exercise program. discussed with DR May Home Meds and New Rx's Prescriptions: New cefpodoxime 200 mg tablet 200 mg PO BID Qty: 10 0RF Rx Instructions: must administer with a meal/food Continued nystatin 100,000 unit/gram powder 1 applic Topical BID PRN (Reason: itching) Qty: 60 11RF Rx Instructions: Apply to abdominal fold and under breasts. diltiazem HCl 120 mg capsule,extended release 24hr 120 mg PO DAILY Jardiance 10 mg tablet 10 mg PO DAILY insulin lispro [Humalog KwikPen Insulin] 100 unit/mL insulin pen See Rx Instructions SUBCUT QMEALS Patient Comments: INJECT 12 UNITS SUBCUTANEOUSLY DIRECTED WITH MEALS Rx Instructions: 12 units in AM and 6 units PM subcutaneously with meals; (DME) Depend Underwear For Women Lrg Misc See Rx Instructions .Route Qty: 100 11RF Rx Instructions: Depends pull up large lisinopril 10 mg Tablet 10 mg PO DAILY insulin glargine [Lantus Solostar U-100 Insulin] 100 unit/mL (3 mL) Insulin Pen 20 unit subcut HS Qty: 15 1RF metoprolol succinate 100 mg tablet extended release 24 hr 100 mg PO DAILY Qty: 0 0RF Xarelto 15 mg Tablet 15 mg PO DAILY magnesium oxide [MagOx] 400 MG tablet 400 mg PO DAILY Qty: 30 0RF metformin 1,000 mg tablet 1,000 mg PO BID Qty: 60 0RF omeprazole 20 MG capsule,delayed release(DR/EC) 20 mg PO DAILY Qty: 30 0RF aspirin [Children's Aspirin] 81 mg Tablet,Chewable 81 mg PO DAILY Qty: 0 0RF atorvastatin 20 mg tablet 80 mg PO HS No Action furosemide 20 mg tablet 20 mg PO DAILY Qty: 30 0RF Patient Comments: pt unsure if they are taking this medication Discharge Instructions Instructions: Catheter-associated Urinary Tract Infection (DC) Additional Instructions: finish antibiotics as prescribed even if you feel better take all your medication as prescribed even if you feel better monitor your blood sugar as directed Stand Alone Forms: Nursing Discharge Form Referrals: Dean Camilo [Primary Care Provider] - Activity:: Activity as Tolerated Equipment/Supplies:: No Equipment Needed Diet:: As Tolerated Discharge Orders Discharge Orders: Discharge Order (Routine); Ordered 04/26/23 Ordered By: Rema Santana DS: Summary Time Spent with Patient providing and/or coordinating discharge services: Greater than 30 minutes Status at Discharge Functional status at discharge: independent ambulation Overall status at discharge: patient is back to baseline Mental Status: mental status grossly normal Speech and Movement: speech and movement normal Mood: congruent mood Affect: normal affect Exam Const General: cooperative and no acute distress Orientation: alert, awake and oriented x3 HENMT Head: normal to inspection General nose exam: external nose normal Face and sinus: normal facial exam Mouth: oral mucosae normal Eyes General: appearance normal, both eyes and all related structures Eyelids: eyelids normal EOM: EOM intact bilaterally Neck Neck: normal visual inspection Lymphatic: no lymphadenopathy noted Chest Chest: normal inspection of the chest Resp Effort & Inspection: normal respiratory effort and able to speak in complete sentences Auscultation: clear to auscultation bilaterally Cardio Rate: regular rate Rhythm: regular rhythm GI Inspection: normal to inspection Palpation: soft and nontender Auscultation: normal bowel sounds Skin General skin exam: no rashes or lesions noted Neuro General: patient alert, patient awake and moves all extremities Cognition: normal cognition Speech: speech normal Gait: normal gait Motor: muscle tone normal throughout Sensory Exam: no sensory deficits noted Extrem General: full ROM and capillary refill normal Psych Appearance: grossly normal Mental Status: mental status grossly normal Speech and Movement: speech and movement normal Mood: congruent mood Affect: normal affect Thought Process: normal DS: Data Vitals/I&O Vitals and I&O: Vital Signs Temperature 36.2 C L 04/25/23 07:39 Temperature Source Tympanic 04/25/23 07:39 Pulse 93 H 04/25/23 07:39 Pulse Rhythm Irregular 04/25/23 07:57 Pulse 123 H 04/23/23 08:40 Respiratory Rate 18 04/25/23 07:39 Respiratory Effort Normal 04/25/23 07:57 Respiratory Depth Normal 04/25/23 07:57 Respiratory Pattern Normal 04/25/23 07:57 Blood Pressure 116/78 04/25/23 07:39 Blood Pressure Mean 95 04/23/23 08:30 Blood Pressure Position Sitting 04/23/23 06:05 Pulse Oximetry 97 04/25/23 07:39 Oxygen Delivery Method Room Air 04/25/23 07:39 Oxygen Flow Rate 0 04/25/23 07:39 Pain Level 6 04/25/23 07:39 Intake & Output 04/24/23 04/24/23 04/25/23 11:59 23:59 11:59 Intake Total 230 / 450 220 / 450 Output Total 1600 / 3225 1625 / 3225 2300 / 2300 Balance -1370 / -2775 -1405 / -2775 -2300 / -2300 Weight 88.5 kg Intake: IV 50 / 50 Oral 180 / 400 220 / 400 Output: Urine 1600 / 3225 1625 / 3225 2300 / 2300 Other: Urine Color Yellow Pale Yellow Urine Appearance Clear Cloudy Mucous Threads Urine Odor Normal Normal Stool Size Small Small Stool Characteristics Hard Formed Brown Hard Voiding Methods Indwelling Catheter Data Completed and Pending Labs on day of discharge: Preliminary micro results at discharge 04/23/23 06:10 Urine Culture - Preliminary Urine - Reflex from Ua Gram Negative Camacho Gram Positive Kristine,Mixed Gram Negative Camacho#2 PFSH All Active Problems (Updated 04/24/23 @ 12:14 by Rema Santana NP) DVT prophylaxis (Acute) Discharge planning issues (Acute) Diabetic hyperosmolar non-ketotic state (Acute) AMS (altered mental status) (Acute) Acute UTI (Acute) Acute hyperglycemia (Acute) Full code status (Acute) Advance care planning (Acute) Brain TIA (Acute) Vitamin B12 deficiency (Acute) CVA (cerebral vascular accident) (Chronic) Impaired instrumental activities of daily living (Acute) DNR (do not resuscitate) (Acute) Loneliness (Acute) Chronic kidney disease (CKD) (Chronic) Venous stasis dermatitis (Acute) Decreased activities of daily living (ADL) (Acute) Need for home health care (Acute) Nephrolithiasis (Chronic) Sacral decubitus ulcer, stage II (Acute) Wound of right lower extremity (Acute) Hyperglycemia (Acute) Trochanteric bursitis, right hip (Acute) Right ankle sprain (Acute) Hip pain, right (Acute) GI bleed (Acute) Fracture, lumbar vertebra, compression (Acute) PSVT (paroxysmal supraventricular tachycardia) (Acute) Urinary retention (Chronic 03/31/16) Poorly controlled diabetes mellitus (Chronic) Transient neurologic deficit (Acute) Fungal dermatitis (Acute) Atrial flutter (Acute) Vaginal bleeding, abnormal (Acute) Atrial fibrillation and flutter (Chronic) Diabetes mellitus type 2 in obese (Acute) Fracture of femoral neck, right (Acute) Retention, urine (Acute) Medical History (Updated 04/24/23 @ 12:14 by Rema Santana NP) Infestation by bed bug Hx of malignant melanoma GERD (gastroesophageal reflux disease) H/O menorrhagia Supraventricular tachycardia History of traumatic fracture of hip Unsteady gait Hard of hearing Vision changes Anemia 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 Palliative care encounter Pulmonary hypertension Multiple rib fractures involving four or more ribs Hypertension S/P right hip fracture TIA (transient ischemic attack) Hyperlipidemia Atrial fibrillation CHF (congestive heart failure) LVEF 50-55%, diastolic dysfunction Diabetes Cataracts, bilateral Surgical History History of bilateral cataract extraction History of suprapubic catheter Status post right hip replacement Family History Other Diabetes Heart disease Hyperlipidemia Hypertension Stroke Social History Smoking/Tobacco Use Status: Former Tobacco Use Smoking risk assessment performed?: Yes Alcohol Intake: never Drug use: Never Substance use type: does not use Household members: none Housing: apartment Do you feel safe at home: Yes Do you feel safe in your relationship?: Yes Additional Social history: Lives alone[address] Does not [address]. Time Spent with Patient Time Spent with Patient: 45-69 minutes Time was spent: preparing to see the patient(eg.review tests), ordering medications,tests, procedures, referring, communicating with other health healthcare sales representative, indepentently interpreting results, counseling the patient and care coordination
--- NOTE | 2023-04-25 11:31 | PTTR_ITS ---
Date of service: 04/25/23 Time of Service: 11:09 PT Notes Visit Reasons: Hyperglycemic hyperosmolar non-ketotic syndrome, U Inpatient Physical Therapy Treatment Note [facility] Date: 04/25/23 PRECAUTIONS: Fall, standard, activity as tolerated. SUBJECTIVE: Patient reports being frustrated. Thought she was going home today, but due to delays and more delays she suspects that she will not be going home today after all. OBJECTIVE: Sitting up in chair, agreeable to therapy. ? PAIN: none reported. VITALS: monitored by nursing staff. ? ? BED MOBILITY/TRANSFERS? Rolling L/R: not assessed Supine-sit: not assessed ? Sit-supine: not assessed ? Sit-stand: SBA ? Stand-sit: SBA ? Bed-Chair: SBA with SPC ? Chair-bed: SBA with SPC ? Therapeutic Exercises (56173e3): Direct one-on-one instruction in therapeutic exercises to develop strength, endurance, range of motion and flexibility. ? Exercises: * LAQ 2x10, cues for full extension, control of velocity of descent * Ankle pumps 2x10. Tactile cues to recruit only the muscles of the ankles. Tactile cues for directionality of movement. * seated marching x10 * sit to stands x5. Verbal cues for respiratory control. Provided skilled instruction in proper exercise performance Provided skilled manual cues to facilitate proper muscle recruitment and/or form. ASSESSMENT:? Patient tolerates therapy well, no c/o pain or dyspnea. PLAN: Continue global strengthening per plan of care until patient is medically cleared for discharge. TREATMENT CODE/TIME: 10 minutes beginning at 11:09
[2023-04-25 11:32] VITALS: BP 100/64; PULSE 89; RESP 18; TEMP 35.9; O2SAT 99
--- NOTE | 2023-04-25 12:01 | W.PM.PROGNOT ---
Date of Service Date of service: 04/25/23 Time of Service: 12:01 Assessment and Plan Assessment and plan (1) Encephalopathy acute: Status: Resolved Assessment and plan: multifactorial with acute infection, hyperosmolar state, resolved and at baseline (2) Acute UTI: Status: Acute Assessment and plan: chronic indwelling suprapubic catheter. cultures pending. will continue ceftriaxone day 3/ catheter change yesterday (3) Diabetic hyperosmolar non-ketotic state: Status: Acute Assessment and plan: blood sugars improved continue to provide insulin with blood sugar checks ac/hs diabetic diet diabetes counseling. hemoglobin A1C 10.1 in December 2022 (4) Chronic kidney disease (CKD): Status: Chronic Assessment and plan: improved after hydration avoid nephrotoxic drugs, renal dosing per pharmacy recommendations close intake and output. maintain hodge catheter. (5) Urinary retention: Status: Chronic Assessment and plan: chronic suprapubic catheter will be changed out. monitor I&O, no sign of obstruction (6) Atrial fibrillation and flutter: Status: Chronic Assessment and plan: continue cardizem and metoprolol and monitor fully anticoagulated on xarelto (7) DVT prophylaxis: Status: Acute Assessment and plan: fully anticoagulated on xarelto (8) Discharge planning issues: Status: Acute Assessment and plan: palliative patient with consult placed anticipate discharge to home tomorrow if remains medically stable discussed with Dr May Subjective Subjective Patient reports: no new complaints, tolerating liquids well, tolerating a regular diet and afebrile; denies shortness of breath Exam Const General: cooperative and no acute distress Orientation: alert, awake and oriented x3 HENMT Head: normal to inspection General nose exam: external nose normal Face and sinus: normal facial exam Mouth: oral mucosae normal Eyes General: appearance normal, both eyes and all related structures Eyelids: eyelids normal EOM: EOM intact bilaterally Neck Neck: normal visual inspection Lymphatic: no lymphadenopathy noted Chest Chest: normal inspection of the chest Resp Effort & Inspection: normal respiratory effort and able to speak in complete sentences Auscultation: clear to auscultation bilaterally Cardio Rate: regular rate Rhythm: regular rhythm GI Inspection: normal to inspection Palpation: soft and nontender Auscultation: normal bowel sounds Skin General skin exam: no rashes or lesions noted Neuro General: patient alert, patient awake and moves all extremities Cognition: normal cognition Speech: speech normal Gait: normal gait Motor: muscle tone normal throughout Sensory Exam: no sensory deficits noted Extrem General: full ROM and capillary refill normal Psych Appearance: grossly normal Mental Status: mental status grossly normal Speech and Movement: speech and movement normal Affect: normal affect Thought Process: normal Objective Last Vital Signs Temp 35.9 C L 04/25/23 11:32 Pulse 89 04/25/23 11:32 Resp 18 04/25/23 11:32 BP 100/64 04/25/23 11:32 Pulse Ox 99 04/25/23 11:32 Time Spent with Patient Time Spent with Patient: 25-34 minutes Time was spent: preparing to see the patient(eg.review tests), ordering medications,tests, procedures, indepentently interpreting results and counseling the patient
--- NOTE | 2023-04-25 14:41 | PDOC.CMDIS ---
Date of service: 04/25/23 Time of Service: 14:41 LACE Index Scoring Tool Questions: Length of Stay (in days): 2 Was the patient admitted via the E.D.?: Yes Comorbidities: Cerebrovascular Disease, Diabetes w/o Complication and Liver or Renal Disease E.D. Visits: 2 Answers: Total Score: 12 Risk of Readmission: High Risk Care Management Discharge Plan Reason for Hospitalization: Hyperglycemic hyperosmolar non-ketotic syndrome, AMS Discharge Plan: Hope will return home when ready per MD. She will follow up with community services and plan of care as prescribed. She will have new orders for VNA RN and PT; CM faxed to [facility]. She will transport via private vehicle with [facility], coordinated by this conventional mortgage underwriter. Patient/Family Education Needs: Review discharge instructions, discuss Ask Me Three. Services Needed at Discharge: Home Health Care Services and Transportation
[2023-04-25 15:31] VITALS: BP 97/61; PULSE 83; RESP 16; TEMP 36.6; O2SAT 97
[2023-04-25 20:00] VITALS: BP 112/76; PULSE 89; RESP 16; TEMP 36.7; O2SAT 96
[2023-04-25] MEDS: Insulin Glargine 300 UNITS/3 ML PEN 20 UNITS SC (21:21)
[2023-04-25] MEDS: Atorvastatin 40 MG TAB 80 MG PO (21:21)
[2023-04-25 23:30] VITALS: BP 118/79; PULSE 85; RESP 16; TEMP 36.4; O2SAT 93
[2023-04-26 03:07] VITALS: BP 132/81; PULSE 99; RESP 16; TEMP 36.4; O2SAT 94
[2023-04-26] MEDS: dilTIAZem CD 120 MG CAPCR PO (06:26)
[2023-04-26] MEDS: Insulin Aspart 300 UNITS/3 ML PEN SC ×2 (07:24→11:50)
[2023-04-26] MEDS: Acetaminophen 325 MG TAB PO (07:25)
[2023-04-26] MEDS: Magnesium Oxide 400 MG TAB PO (07:25)
[2023-04-26] MEDS: Omeprazole 20 MG CAPCR PO (07:26)
[2023-04-26] MEDS: Lisinopril 10 MG TAB PO (07:26)
[2023-04-26] MEDS: cefTRIAXone 2 GM/50 ML BAG IVPB (07:26)
[2023-04-26] MEDS: Metoprolol CR 100 MG TABCR PO (07:26)
[2023-04-26] MEDS: Rivaroxaban 15 MG TABLET PO (07:26)
[2023-04-26] MEDS: Aspirin 81 MG CHEW PO (07:26)
[2023-04-26] MEDS: Empaglifozin 10 MG TAB PO (07:26)
--- NOTE | 2023-04-26 09:31 | PT.INTREAT ---
Date of service: 04/26/23 Time of Service: 09:18 PT Notes Visit Reasons: Hyperglycemic hyperosmolar non-ketotic syndrome, U Inpatient Physical Therapy Treatment Note [facility] Date: 04/26/23 PRECAUTIONS: Fall, standard, activity as tolerated SUBJECTIVE: Patient reports that she should be going home today. Eager to get home to her parrot. OBJECTIVE: Sitting up in chair. IV attached RUE. Barber in place. Chair alarm in place.? PAIN: none initially, then c/o left hip feeling solid and pulling. VITALS: monitored by nursing staff ? BED MOBILITY/TRANSFERS? Rolling L/R: not assessed Supine-sit: not assessed ? Sit-supine: not assessed] ? Sit-stand: SBA ? Stand-sit: SBA ? Bed-Chair: SBA with SPC and assistance managing Barber and IV ? Chair-bed: SBA with SPC and assistance managing Barber and IV Provided skilled cues and instruction on performance and technique throughout. Gait Training ([id number]): Direct one-on-one instruction and skilled instruction in: [x] employing an assistive device [] modified weight-bearing status [x] movement sequencing [x] turning and movement with proper form [x] Provided verbal cues for equipment management and technique [x] Provided instruction in gait pattern [] Patient education regarding pacing and breathing techniques to maximize activity tolerance? GAIT? Assistive Device: SPC?held in Left hand ? Weight bearing: full Assist: SBA with SPC and assistance managing Barber and IV ? Distance:? 200 feet? Deviation: Bilateral trunk lurch noted, R>L, short stride length, wide GINI. In the last ~40 feet, patient feels the need to furniture surf with RUE, becomes increasingly unsteady. ASSESSMENT:? Patient should stick to FWW or 4WW for all ambulation. Patient reports her FWW is buried in the back of a closet somewhere. Encouraged patient to get it out and significantly limit the use of the SPC. PLAN: Continue global strengthening per plan of care until patient is medically cleared for discharge. TREATMENT CODE/TIME: 12 minutes beginning at 9:18
[2023-04-26 11:25] VITALS: BP 109/73; PULSE 88; RESP 17; TEMP 36.7; O2SAT 93
--- NOTE | 2023-04-26 11:49 | PDOC.HHF2F_ITS ---
Home Health Referral Home Health Orders Clinical synopsis of why skilled professionals are needed: oversight of diabetes management, ensuring accurate dosing and self administration of injectable insulin, new antibiotic. Medical diagnosis necessitation home health referral: diabetes mellitus with presentation in hyperosmolar diabetic state. urinary tract infection Registered Nurse: Check all that apply Instruct on new or changed medication(s)/assess compliance: Ordered Assess for exacerbation of medical condition, instruct patient/caregivers on signs and symptoms to report for early detection: Ordered Physical Therapist: Check all that apply Increase strength & endurance for safe mobility at home: Ordered To design/establish home maintenance program: Ordered Fall reduction therapy program for patient with history of frequent falls: Ordered Home safety evaluation and teaching/gait training including stair management (if applicable): Ordered Occupational Therapist: Evaluate and treat for patient unable to perform ADL/IADL/self-care: Ordered Upper extremity strengthening, range and motion: Ordered Home Bound Status Describe why leaving home would require a considerable and taxing effort: Safety Concerns: describe Encounter Date and Reason: I certify that a FTF encounter for this patient was performed on April 26, 2023 and that such encounter was related to the primary reason the patient requires home health services. The encounter was conducted in the following manner: * By me as the certifying physician, CONTACT CENTER ASSOCIATE, PA or * By an inpatient physician, CONTACT CENTER ASSOCIATE or PA during an inpatient stay who communicated findings to me, Certification And Authentication I certify that I composed the above information based on my clinical judgment relating to this patient's medical condition and, if applicable, clinical findings communicated to me by the NPP or inpatient physician who performed the FTF encounter. Name of Provider that will be monitoring home health services: Dean Camilo
== END 2023-04-26 13:54 | disposition home health service (06) | DRG 698 ==
LOC: ER 07:55 → MS 08:46
PROVIDERS: Admitting Provider Family Medicine; Emergency Provider Emergency Medicine; PCP Physician Assistant; Visit Provider Family Medicine
DX: E11.00 Type 2 diabetes mellitus with hyperosmolarity without nonketotic hyperglycemic-hyperosmolar coma (NKHHC) (principal); G93.40 Encephalopathy, unspecified; N39.0 Urinary tract infection, site not specified; I48.92 Unspecified atrial flutter; I47.19 Other supraventricular tachycardia; I50.30 Unspecified diastolic (congestive) heart failure; T83.510A Infection and inflammatory reaction due to cystostomy catheter, initial encounter; I13.0 Hypertensive heart and chronic kidney disease with heart failure and stage 1 through stage 4 chronic kidney disease, or unspecified chronic kidney disease; E11.22 Type 2 diabetes mellitus with diabetic chronic kidney disease; N18.9 Chronic kidney disease, unspecified; R33.9 Retention of urine, unspecified; Z86.73 Personal history of transient ischemic attack (TIA), and cerebral infarction without residual deficits; I48.91 Unspecified atrial fibrillation; Z79.01 Long term (current) use of anticoagulants; E53.8 Deficiency of other specified B group vitamins; Z66 Do not resuscitate; I87.2 Venous insufficiency (chronic) (peripheral); M70.61 Trochanteric bursitis, right hip; K21.9 Gastro-esophageal reflux disease without esophagitis; R26.81 Unsteadiness on feet; D64.9 Anemia, unspecified; M06.00 Rheumatoid arthritis without rheumatoid factor, unspecified site; I27.20 Pulmonary hypertension, unspecified; E78.5 Hyperlipidemia, unspecified; Z79.4 Long term (current) use of insulin; B36.9 Superficial mycosis, unspecified; B96.89 Other specified bacterial agents as the cause of diseases classified elsewhere; Z79.84 Long term (current) use of oral hypoglycemic drugs
CPT/HCPCS: 00123; 36415; 80048; 80053; 80307; 82805; 82962; 85027; 87077; 87637; 93005; 96360; 96365; 97110; 97116; 97162; 99285; 70450; 71045; 81003; 81015; 83735; 83880; 84443; 85025; 85610; 85730; 87086; 87186; 93010; 99223; 99233; 99239; J0696

== ENCOUNTER 2023-05-12 09:41 | Emergency (ER) | payer MEDICARE, MEDICAID, SELFPAY ==
[2023-05-12 09:48] VITALS: BP 110/81; PULSE 107; O2SAT 98
[2023-05-12 10:16] VITALS: BP 110/81; PULSE 86; RESP 16; TEMP 36.5; O2SAT 98
--- NOTE | 2023-05-12 10:30 | RT.EKG_ITS ---
APPROVED REPORT Exam: Resting ECG Reason for Exam: weakness Patient Location: E HR:85 bpm ECG Measurements Heart Rate 85 [place] [id number] P [id number] QRSd 82 QRS 14 QT 352 T 2 QTc 431 Conclusion Atrial fibrillation...? atrial activity Low voltage, extremity leads...all extremity leads <0.5mV Consider anteroseptal infarct...Q >30mS, dimin R, V1-V2
[2023-05-12 11:04] LABS: Abs Immature Grans 0.06 10^3/uL (0.0-0.06); Absolute Basophil Count 0.06 10^3/uL (0.0-0.2); Absolute Eosinophil Count 0.16 10^3/uL (0.0-0.7); Absolute Lymphocyte Count 1.62 10^3/uL (1.2-3.4); Absolute Monocyte Count 0.88 10^3/uL (0.1-0.8); Absolute Neutrophil Count 4.76 10^3/uL (1.2-6.7); Basophils % 0.8; Eosinophils % 2.1; HCT 33.2 % (36.0-46.0); HGB 10.1 g/dL (11.2-15.7); Immature Grans % 0.8; Lymphocytes % 21.5; MCH 25.2 pg (27.0-33.0); MCHC 30.4 % (32.0-36.0); MCV 83 fL (80-95); MPV 10.4 fL (8.0-11.0); Monocytes % 11.7; Neutrophils % 63.1; Platelet Count 428 10^3/uL (130-400); RBC 4.01 10^6/uL (3.93-5.22); RDW-SD 48.7 fL; WBC 7.54 10^3/uL (4.4-10.8)
[2023-05-12 11:07] LABS: Bilirubin Negative (Negative); Blood Small (Negative); Clarity Sl Cloudy (Clear); Glucose 500 mg/dL (Negative); Ketones Negative (Negative); Leukocyte Esterase Trace (Negative); Nitrite Negative (Negative); Specific Gravity 1.015 (1.005-1.025); Urobilinogen 0.2 mg/dL (Up to 0.2)
[2023-05-12 11:15] LABS: Bacteria Few HPF (Negative); C & S Indicated? Yes; Casts Negative LPF (Negative); Crystals Negative HPF (Negative); Epithelial Cells Few HPF (Negative); Mucus Negative (Negative); Other Cells Few Yeast (Negative); WBC >50 HPF (0-5)
[2023-05-12 11:19] LABS: ALT 28 U/L (14-59); AST 17 U/L (15-37); Albumin 2.9 g/dL (3.4-5.0); Alkaline Phosphatase 77 U/L (46-116); Anion Gap 8.8 mmol/L (3-11); BUN 24 mg/dL (7-18); Bilirubin, Total 0.4 mg/dL (0.2-1.0); CO2 25.2 mmol/L (21.0-32.0); CREATININE 1.2 mg/dL (0.55-1.02); Calcium 9.6 mg/dL (8.5-10.1); Chloride 97 mmol/L (98-107); Estimated GFR 47.21 (mL/min/1.73m2); Glucose 387 mg/dL (74-106); Potassium 4.8 mmol/L (3.5-5.1); Sodium 131 mmol/L (136-145); Total Protein 7.6 g/dL (6.4-8.2)
--- NOTE | 2023-05-12 11:32 | DI.CT_ITS ---
Exam(s) CT ABDOMEN PELVIS WO EXAM: CT ABDOMEN PELVIS WO CLINICAL HISTORY: recurrent uti, urinary retention. TECHNIQUE: Imaging Protocol: Axial computed tomography images with coronal and sagittal reformatted images were created and reviewed. COMPARISON: CT CT RENAL COLIC WO from 07/31/2021 FINDINGS: The examination is limited due to patient motion artifact. ABDOMEN: Lung Bases: Normal where visualized. Liver: Normal density. No measurable mass. Gallbladder and biliary tract: Gallstones are present. There is no significant biliary ductal dilata tion. Pancreas: Normal density, no abnormal calcifications or inflammatory process. Spleen: Normal. Kidneys: Normal size, contour and axis.No radiodense stones or obstructive uropathy. Stable right josiah al cysts. Adrenal glands: No mass is seen. Lymph nodes: Within normal limits. Abdominal Aorta: Abdominal portion non-dilated. Atherosclerosis. PELVIS: Bladder:The urinary bladder is markedly distended. There is a suprapubic catheter in place. Bowel: No obstruction or bowel wall thickening. Appendix is unremarkable. Peritoneal cavity: No ascites, collection or mesenteric inflammatory response. No free air. Reproductive organs: Unremarkable as visualized. Bones: Within normal limits. The patient has a right total hip replacement. There is a stable L1 com pression fracture deformity. Grade 1 anterolisthesis of L4 on L5 is present. Soft Tissues: Within normal limits. IMPRESSION: 1. No evidence of nephrolithiasis or hydronephrosis. 2. Marked distension of the urinary bladder. There is a suprapubic catheter in place. 3. Incidental findings in the abdomen and pelvis as described above. 4. Findings were discussed with Paola Rajput at 12:20 p.m. on 05/12/2023. RADIATION DOSE DELIVERED: Total DLP DATA REPOSITORY: All CT scans at this facility are submitted to the National Radiology Data Registry (NRDR) Dose Index Registry (DIR) with the [employer] (A[employer]). RADIATION OPTIMIZATION: All CT scans at this facility use at least one of these dose optimization te chniques: automated exposure control; mA and/or kV adjustment per patient size (includes targeted exa ms where dose is matched to clinical indication); or iterative reconstruction.
--- NOTE | 2023-05-12 14:04 | ED.GENADUL_ITS ---
Discharge Plan Disposition Patient Disposition: Home Discharge Details Clinical Impression: Retention, urine, Blocked suprapubic catheter, Hx of tinea corporis, Hyperglycemia, Diabetes mellitus type 2 in obese Primary Care Provider: Dean Camilo ED Provider: Paola Rajput Home Meds and New Rx's Prescriptions: New fluconazole [Diflucan] 200 mg tablet 200 mg PO DAILY Qty: 7 0RF Rx Instructions: take 1 tablet every 48 hours until completed nystatin 100,000 unit/gram powder 1 applic topical BID Qty: 60 0RF Continued nystatin 100,000 unit/gram powder 1 applic Topical BID PRN (Reason: itching) Qty: 60 11RF Rx Instructions: Apply to abdominal fold and under breasts. diltiazem HCl 120 mg capsule,extended release 24hr 120 mg PO DAILY Jardiance 10 mg tablet 10 mg PO DAILY insulin lispro [Humalog KwikPen Insulin] 100 unit/mL insulin pen See Rx Instructions SUBCUT QMEALS Patient Comments: INJECT 12 UNITS SUBCUTANEOUSLY DIRECTED WITH MEALS Rx Instructions: 12 units in AM and 6 units PM subcutaneously with meals; (DME) Depend Underwear For Women Lrg Misc See Rx Instructions .Route Qty: 100 11RF Rx Instructions: Depends pull up large lisinopril 10 mg Tablet 10 mg PO DAILY insulin glargine [Lantus Solostar U-100 Insulin] 100 unit/mL (3 mL) Insulin Pen 20 unit subcut HS Qty: 15 1RF metoprolol succinate 100 mg tablet extended release 24 hr 100 mg PO DAILY Qty: 0 0RF Xarelto 15 mg Tablet 15 mg PO DAILY magnesium oxide [MagOx] 400 MG tablet 400 mg PO DAILY Qty: 30 0RF metformin 1,000 mg tablet 1,000 mg PO BID Qty: 60 0RF omeprazole 20 MG capsule,delayed release(DR/EC) 20 mg PO DAILY Qty: 30 0RF furosemide 20 mg tablet 20 mg PO DAILY Qty: 30 0RF Patient Comments: pt unsure if they are taking this medication aspirin [Children's Aspirin] 81 mg Tablet,Chewable 81 mg PO DAILY Qty: 0 0RF atorvastatin 20 mg tablet 80 mg PO HS Discharge Instructions Additional Instructions: try to check your blood sugars more frequently If your blood sugars are significantly high, you are at increased risk for having yeast and developing a yeast infection in her suprapubic catheter and urine I am giving you a regimen of Diflucan, recommendation is to take a dose every 48 hours until completed Use the nystatin powder in your skin folds twice daily for the next several weeks, this will likely improve if you have tighter control of your blood glucose Follow-up with urology in 3 weeks, this is very important Should you develop new or worsening complaints, the recommendation is your reevaluated earlier in the emergency department Referrals: Paola Owen, DNP [NURSE PRACTITIONER] - Medical Decision Making This 73-year-old female presenting with report of urinary complaints labs are stable for patient, hyperglycemia without evidence of diabetic ketoacidosis, alert and oriented, ambulatory Creatinine at baseline for patient Tinea corporis noted with suspected yeast along suprapubic catheter Urinalysis with greater than 50 red blood cells, likely colonized secondary to chronic indwelling suprapubic catheter, urinalysis with some yeast noted, init lucinda tried to change suprapubic catheter, however there was resistance and Paola Owen, nurse practitioner was consulted and did evaluate and place new suprapubic catheter, please see her documentation Will after discussion of urinalysis findings, Paola recommends Diflucan, will give a dose every 48 hours Patient's not exhibiting signs of systemic illness Will supply nystatin, Diflucan, 1 tablet every 48 hours, number 7 tablets until completed Lung coverage today Tahir and jonahus care Recheck in 48 hours with primary care physician Will follow-up with urology in 3 weeks Return precautions reviewed and patient expressed understanding HPI General Date/Time Provider Initiated Documentation: 05/12/23 10:21 . HPI Narrative: This 73-year-old female presents with report of urinary retention and malfunctioning suprapubic catheter. Had some lightheadedness today. Denies fever or chills. Denies chest pain or shortness of breath. States Barber catheter was changed approximately 2 weeks ago. She is now having urinary incontinence to her actual urethra per patient. Denies any abdominal pain or weakness. Related Data Home Medications Medication Instructions Recorded Confirmed lisinopril 10 mg tablet 10 mg PO DAILY 05/12/19 05/12/23 nystatin 100,000 unit/gram topical 1 applic topical BID PRN itching 10/31/20 05/12/23 powder #60 grams insulin glargine 100 unit/mL (3 20 unit (0.2 mL) subcut HS #15 mL 11/27/20 05/12/23 mL) subcutaneous pen (Lantus Solostar U-100 Insulin) metoprolol succinate 100 mg 100 mg PO DAILY #0 tabs 11/27/20 05/12/23 tablet,extended release 24 hr rivaroxaban 15 mg tablet (Xarelto) 15 mg PO DAILY 07/31/21 05/12/23 furosemide 20 mg tablet 20 mg PO DAILY #30 tabs 08/02/21 05/12/23 magnesium oxide 400 mg (241.3 mg 400 mg PO DAILY #30 tabs 08/02/21 05/12/23 magnesium) tablet (MagOx) metformin 1,000 mg tablet 1,000 mg PO BID #60 tabs 08/02/21 05/12/23 omeprazole 20 mg capsule,delayed 20 mg PO DAILY #30 caps 08/02/21 05/12/23 release diltiazem HCl 120 mg 120 mg PO DAILY 10/16/21 05/12/23 capsule,extended release 24 hr empagliflozin 10 mg tablet 10 mg PO DAILY 10/16/21 05/12/23 (Jardiance) insulin lispro 100 unit/mL See Rx Instructions subcut QMEALS 12/17/21 05/12/23 subcutaneous pen (Humalog KwikPen (U-100) Insulin) diaper,brief,adult,disposable #100 ea 09/30/22 05/12/23 (Depend Underwear For Women Large) aspirin 81 mg chewable tablet 81 mg PO DAILY #0 tabs 12/31/22 05/12/23 (Children's Aspirin) atorvastatin 20 mg tablet 80 mg PO HS 01/26/23 05/12/23 fluconazole 200 mg tablet 200 mg PO DAILY #7 tabs 05/12/23 (Diflucan) nystatin 100,000 unit/gram topical 1 applic topical BID #60 grams 05/12/23 powder Previous Rx's Medication Instructions Recorded nystatin 100,000 unit/gram topical 1 applic topical BID PRN itching 10/31/20 powder #60 grams insulin glargine 100 unit/mL (3 20 unit (0.2 mL) subcut HS #15 mL 11/27/20 mL) subcutaneous pen (Lantus Solostar U-100 Insulin) metoprolol succinate 100 mg 100 mg PO DAILY #0 tabs 11/27/20 tablet,extended release 24 hr furosemide 20 mg tablet 20 mg PO DAILY #30 tabs 08/02/21 magnesium oxide 400 mg (241.3 mg 400 mg PO DAILY #30 tabs 08/02/21 magnesium) tablet (MagOx) metformin 1,000 mg tablet 1,000 mg PO BID #60 tabs 08/02/21 omeprazole 20 mg capsule,delayed 20 mg PO DAILY #30 caps 08/02/21 release diaper,brief,adult,disposable #100 ea 09/30/22 (Depend Underwear For Women Large) aspirin 81 mg chewable tablet 81 mg PO DAILY #0 tabs 12/31/22 (Children's Aspirin) fluconazole 200 mg tablet 200 mg PO DAILY #7 tabs 05/12/23 (Diflucan) nystatin 100,000 unit/gram topical 1 applic topical BID #60 grams 05/12/23 powder Allergies Allergy/AdvReac Type Severity Reaction Status Date / Time trazodone AdvReac Intermediate NIGHTMARES Verified 05/12/23 10:16 General Stated Complaint: Urinary ARGENIS: 3 PFSH All Active Problems (Updated 05/12/23 @ 14:12 by KATHLEEN Curry) Hx of tinea corporis (Acute) Blocked suprapubic catheter (Acute) Diabetic hyperosmolar non-ketotic state (Acute) AMS (altered mental status) (Acute) Acute UTI (Acute) Acute hyperglycemia (Acute) Full code status (Acute) Advance care planning (Acute) Brain TIA (Acute) Vitamin B12 deficiency (Acute) CVA (cerebral vascular accident) (Chronic) Impaired instrumental activities of daily living (Acute) DNR (do not resuscitate) (Acute) Loneliness (Acute) Chronic kidney disease (CKD) (Chronic) Venous stasis dermatitis (Acute) Decreased activities of daily living (ADL) (Acute) Need for home health care (Acute) Nephrolithiasis (Chronic) Sacral decubitus ulcer, stage II (Acute) Wound of right lower extremity (Acute) Hyperglycemia (Acute) Trochanteric bursitis, right hip (Acute) Right ankle sprain (Acute) Hip pain, right (Acute) GI bleed (Acute) Fracture, lumbar vertebra, compression (Acute) PSVT (paroxysmal supraventricular tachycardia) (Acute) Urinary retention (Chronic 03/31/16) Poorly controlled diabetes mellitus (Chronic) Transient neurologic deficit (Acute) Fungal dermatitis (Acute) Atrial flutter (Acute) Vaginal bleeding, abnormal (Acute) Atrial fibrillation and flutter (Chronic) Diabetes mellitus type 2 in obese (Acute) Fracture of femoral neck, right (Acute) Retention, urine (Acute) Medical History (Updated 05/12/23 @ 14:12 by KATHLEEN Curry) Infestation by bed bug Hx of malignant melanoma GERD (gastroesophageal reflux disease) H/O menorrhagia Supraventricular tachycardia History of traumatic fracture of hip Unsteady gait Hard of hearing Vision changes Anemia 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 Palliative care encounter Pulmonary hypertension Multiple rib fractures involving four or more ribs Hypertension S/P right hip fracture TIA (transient ischemic attack) Hyperlipidemia Atrial fibrillation CHF (congestive heart failure) LVEF 50-55%, diastolic dysfunction Diabetes Cataracts, bilateral Surgical History History of bilateral cataract extraction History of suprapubic catheter Status post right hip replacement Family History Other Diabetes Heart disease Hyperlipidemia Hypertension Stroke Social History Smoking/Tobacco Use Status: Former Tobacco Use Smoking risk assessment performed?: Yes Alcohol Intake: never Drug use: Never Substance use type: does not use Household members: none Housing: apartment Do you feel safe at home: Yes Do you feel safe in your relationship?: Yes Additional Social history: Lives alone[address] Does not drive. Course Vital Signs Vital signs: Vital Signs Pulse 107 H 05/12/23 09:48 Blood Pressure 110/81 05/12/23 09:48 Pulse Oximetry 98 05/12/23 09:48 Temperature 36.5 C 05/12/23 10:16 Temperature Source Oral 05/12/23 10:16 Pulse 86 05/12/23 10:16 Respiratory Rate 16 05/12/23 10:16 Respiratory Effort Normal, Non-Labored 05/12/23 09:52 Blood Pressure 110/81 05/12/23 10:16 Blood Pressure Position Sitting 05/12/23 10:16 Pulse Oximetry 98 05/12/23 10:16 Oxygen Delivery Method Room Air 05/12/23 10:16 Oxygen Flow Rate 0 05/12/23 10:16 Pain Level 0 05/12/23 10:23 Lab/Test Results Lab/Test Results: 05/12/23 10:57 Urine - Reflex from Ua Urine Culture - Pending Laboratory Tests Range/Units 05/12/23 05/12/23 10:55 10:57 WBC (4.4-10.8) 10^3/uL 7.54 RBC (3.93-5.22) 10^6/uL 4.01 Hgb (11.2-15.7) g/dL 10.1 L Hct (36.0-46.0) % 33.2 L MCV (80-95) fL 83 MCH (27.0-33.0) pg 25.2 L MCHC (32.0-36.0) % 30.4 L RDW (11.7-14.6) % 16.0 H Plt Count (130-400) 10^3/uL 428 H MPV (8.0-11.0) fL 10.4 Immature Gran % 0.8 Neutrophils % 63.1 Lymphocytes % 21.5 Monocytes % 11.7 Eosinophils % 2.1 Basophils % 0.8 Nucleated RBC % (0.0-0.3) % 0.0 Absolute Neutrophils (1.2-6.7) 10^3/uL 4.76 Absolute Lymphocytes (1.2-3.4) 10^3/uL 1.62 Absolute Monocytes (0.1-0.8) 10^3/uL 0.88 H Absolute Eosinophils (0.0-0.7) 10^3/uL 0.16 Absolute Basophils (0.0-0.2) 10^3/uL 0.06 Sodium (136-145) mmol/L 131 L Potassium (3.5-5.1) mmol/L 4.8 Chloride (98-107) mmol/L 97 L Carbon Dioxide (21.0-32.0) mmol/L 25.2 Anion Gap (3-11) mmol/L 8.8 BUN (7-18) mg/dL 24 H Creatinine (0.55-1.02) mg/dL 1.2 H Est GFR (CKD-EPI 2020) (mL/min/1.73m2) 47.21 Glucose (74-106) mg/dL 387 H Calcium (8.5-10.1) mg/dL 9.6 Total Bilirubin (0.2-1.0) mg/dL 0.4 AST (15-37) U/L 17 ALT (14-59) U/L 28 Alkaline Phosphatase (46-116) U/L 77 Total Protein (6.4-8.2) g/dL 7.6 Albumin (3.4-5.0) g/dL 2.9 L Urine Color (Yellow) Yellow Urine Clarity (Clear) Sl Cloudy Urine pH (5-8) 7.0 Ur Specific [place] (1.005-1.025) 1.015 Urine Protein (Negative) mg/dL Negative Urine Ketones (Negative) mg/dL Negative Urine Blood (Negative) Small H Urine Nitrite (Negative) Negative Urine Bilirubin (Negative) Negative Urine Urobilinogen (Up to 0.2) mg/dL 0.2 Ur Leukocyte Esterase (Negative) Trace H Urine RBC (0-2) HPF 5-10 H Urine WBC (0-5) HPF >50 H Ur Epithelial Cells (Negative) HPF Few Urine Crystals (Negative) HPF Negative Urine Bacteria (Negative) HPF Few Urine Casts (Negative) LPF Negative Urine Mucus (Negative) Negative Urine Other (Negative) Few Yeast Ur Culture Indicated? Yes Urine Glucose (Negative) mg/dL 500 H
[2023-05-12 14:28] VITALS: BP 142/86; PULSE 94; RESP 16; TEMP 37.2; O2SAT 98
[2023-05-12] MEDS: Fluconazole 100 MG TAB 200 MG PO (14:28)
--- NOTE | 2023-05-12 16:00 | W.UROLOGYCON ---
Date of service: 05/12/23 Time of Service: 13:30 Assessment and Plan Assessment and plan (1) Urinary retention: Status: Chronic Assessment and plan: Suprapubic catheter was changed. See procedure section for more information. We will plan on scheduling this individual for her next suprapubic catheter change in the outpatient clinic for 3 weeks from now. Discussed with patient her amount of no-shows to her appointments and the need to be consistent with making her catheter change appointments to help reduce catheter complications. She expresses understanding. ER provider notes concerns for yeast in the urine. Provided Diflucan recommendation for treatment not only for urine but also for skin folds. Dictation was done by [employer] voice recognition. Errors may be present within the note. History of Present Illness Narrative: Hope is a 73-year-old female with a long history of urinary retention. She was unable to perform intermittent catheterization, so she was treated with placement of an suprapubic tube. She however has missed several appointments over the course of the year to be consistent with changing her suprapubic tube monthly. She recently was inpatient due to altered mental status. While inpatient her suprapubic catheter was changed. She however noted that the catheter was not draining well shortly after getting out of the hospital. She had appointments in the urology clinic to have her catheter evaluated but did not show. She presents to the emergency room noting that her catheter has been plugged. She however has been voiding through her urethra. She notes that today the pressure on her bladder has been really discomforting and she has not had the ability to void through her urethra. Emergency room provider called for consult. Recommended that catheter be changed. Provider attempted to change catheter but was unsuccessful and requested that urology provider assist with changing suprapubic. Patient reports no fevers, chills, nausea, vomiting or flank pain. She notes that she has been ill with other non urology related concerns. Consults Consult date: 05/12/23 Requesting physician: Paola Rajput Review of Systems Narrative: See HPI PFSH All Active Problems (Updated 05/12/23 @ 14:12 by KATHLEEN Curry) Hx of tinea corporis (Acute) Blocked suprapubic catheter (Acute) Diabetic hyperosmolar non-ketotic state (Acute) AMS (altered mental status) (Acute) Acute UTI (Acute) Acute hyperglycemia (Acute) Full code status (Acute) Advance care planning (Acute) Brain TIA (Acute) Vitamin B12 deficiency (Acute) CVA (cerebral vascular accident) (Chronic) Impaired instrumental activities of daily living (Acute) DNR (do not resuscitate) (Acute) Loneliness (Acute) Chronic kidney disease (CKD) (Chronic) Venous stasis dermatitis (Acute) Decreased activities of daily living (ADL) (Acute) Need for home health care (Acute) Nephrolithiasis (Chronic) Sacral decubitus ulcer, stage II (Acute) Wound of right lower extremity (Acute) Hyperglycemia (Acute) Trochanteric bursitis, right hip (Acute) Right ankle sprain (Acute) Hip pain, right (Acute) GI bleed (Acute) Fracture, lumbar vertebra, compression (Acute) PSVT (paroxysmal supraventricular tachycardia) (Acute) Urinary retention (Chronic 03/31/16) Poorly controlled diabetes mellitus (Chronic) Transient neurologic deficit (Acute) Fungal dermatitis (Acute) Atrial flutter (Acute) Vaginal bleeding, abnormal (Acute) Atrial fibrillation and flutter (Chronic) Diabetes mellitus type 2 in obese (Acute) Fracture of femoral neck, right (Acute) Retention, urine (Acute) Medical History (Updated 05/12/23 @ 14:12 by KATHLEEN Curry) Infestation by bed bug Hx of malignant melanoma GERD (gastroesophageal reflux disease) H/O menorrhagia Supraventricular tachycardia History of traumatic fracture of hip Unsteady gait Hard of hearing Vision changes Anemia 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 Palliative care encounter Pulmonary hypertension Multiple rib fractures involving four or more ribs Hypertension S/P right hip fracture TIA (transient ischemic attack) Hyperlipidemia Atrial fibrillation CHF (congestive heart failure) LVEF 50-55%, diastolic dysfunction Diabetes Cataracts, bilateral Surgical History History of bilateral cataract extraction History of suprapubic catheter Status post right hip replacement Family History Other Diabetes Heart disease Hyperlipidemia Hypertension Stroke Social History Smoking/Tobacco Use Status: Former Tobacco Use Smoking risk assessment performed?: Yes Alcohol Intake: never Drug use: Never Substance use type: does not use Household members: none Housing: apartment Do you feel safe at home: Yes Do you feel safe in your relationship?: Yes Additional Social history: Lives alone[address] Does not drive. Exam Const Orientation: alert, awake and oriented x3 Eyes Sclera: sclerae normal Resp Effort & Inspection: normal respiratory effort GI Inspection: normal to inspection and non-distended Palpation: firm other (suprapubic) and tender suprapubicly Skin Other: Erythemic skin folds with white discharge Results Last Vital Signs Temp 99.0 F 05/12/23 14:28 Pulse 94 H 05/12/23 14:28 Resp 16 05/12/23 14:28 BP 142/86 H 05/12/23 14:28 Pulse Ox 98 05/12/23 14:28 Labs 05/12/23 10:55 05/12/23 10:55 Labs: Laboratory Results - last 24 hr 05/12/23 05/12/23 10:55 10:57 WBC 7.54 RBC 4.01 Hgb 10.1 L Hct 33.2 L MCV 83 MCH 25.2 L MCHC 30.4 L RDW 16.0 H Plt Count 428 H MPV 10.4 Immature Gran % 0.8 Neutrophils % 63.1 Lymphocytes % 21.5 Monocytes % 11.7 Eosinophils % 2.1 Basophils % 0.8 Nucleated RBC % 0.0 Absolute Neutrophils 4.76 Absolute Lymphocytes 1.62 Absolute Monocytes 0.88 H Absolute Eosinophils 0.16 Absolute Basophils 0.06 Sodium 131 L Potassium 4.8 Chloride 97 L Carbon Dioxide 25.2 Anion Gap 8.8 BUN 24 H Creatinine 1.2 H Est GFR (CKD-EPI 2020) 47.21 Glucose 387 H Calcium 9.6 Total Bilirubin 0.4 AST 17 ALT 28 Alkaline Phosphatase 77 Total Protein 7.6 Albumin 2.9 L Urine Color Yellow Urine Clarity Sl Cloudy Urine pH 7.0 Ur Specific [place] 1.015 Urine Protein Negative Urine Ketones Negative Urine Blood Small H Urine Nitrite Negative Urine Bilirubin Negative Urine Urobilinogen 0.2 Ur Leukocyte Esterase Trace H Urine RBC 5-10 H Urine WBC >50 H Ur Epithelial Cells Few Urine Crystals Negative Urine Bacteria Few Urine Casts Negative Urine Mucus Negative Urine Other Few Yeast Ur Culture Indicated? Yes Urine Glucose 500 H Change Bladder Catheter Procedure performed by: Paola Owen Indication for procedure: cath change Informed consent given: Yes Position of patient: supine Inplace catheter size (Fr): 16 Inplace catheter type: supra pubic Water amount removed from catheter balloon: 9cc Catheter removed: without difficulty (Slight cuff from deflated balloon ) Catheter intact: Yes Sterilizing agent: Yes Type of anesthesia: topical gel Catheter size (Fr): 16 Catheter type: supra pubic Lubrication: Yes Catheter inserted: without difficulty Volume instilled into catheter balloon: 10cc Amount of urine out: 1400cc total. Catheter clamped at 1000cc then unclamped for remainder. Catheter attached to: other Patient tolerated procedure: well Complications: No
== END 2023-05-12 14:32 | disposition home or self-care (01) ==
PROVIDERS: Emergency Provider Physician Assistant; PCP Physician Assistant
DX: T83.098A Other mechanical complication of other urinary catheter, initial encounter (principal); B35.4 Tinea corporis; R33.9 Retention of urine, unspecified; R42 Dizziness and giddiness; E11.65 Type 2 diabetes mellitus with hyperglycemia; I11.0 Hypertensive heart disease with heart failure; I50.9 Heart failure, unspecified; E66.9 Obesity, unspecified; Z68.30 Body mass index [BMI] 30.0-30.9, adult; Z79.4 Long term (current) use of insulin; Z79.899 Other long term (current) drug therapy; Z79.82 Long term (current) use of aspirin; I48.91 Unspecified atrial fibrillation
CPT/HCPCS: 51705; 80053; 93005; 99283; 99285; 74176; 81003; 81015; 85025; 87086; 93010; 99284

== ENCOUNTER → 2023-06-03 09:15 | Outpatient (BNVA) | payer MEDICARE, MEDICAID, SELFPAY | PROVIDERS: PCP Physician Assistant; Visit Provider Nurse Practitioner Gerontology | DX: Z46.6 Encounter for fitting and adjustment of urinary device (principal); R33.8 Other retention of urine | CPT/HCPCS: 51705 ==

== ENCOUNTER → 2023-07-01 09:16 | Outpatient (BNVA) | payer MEDICARE, MEDICAID, SELFPAY | PROVIDERS: PCP Physician Assistant; Visit Provider Nurse Practitioner Gerontology | DX: Z46.6 Encounter for fitting and adjustment of urinary device (principal); R33.8 Other retention of urine; R32 Unspecified urinary incontinence | CPT/HCPCS: 51705 ==

== ENCOUNTER 2023-11-04 22:45 | Emergency (ER) | payer MEDICARE, MEDICAID, SELFPAY ==
[2023-11-04] VITALS (21 sets, daily range): BP systolic 55–114; BP diastolic 20–50; PULSE 37–83; RESP 13–23; TEMP 35.3; O2SAT 92–98
--- NOTE | 2023-11-04 22:30 | RT.EKG_ITS ---
APPROVED REPORT Exam: Resting ECG Reason for Exam: CHEST PAIN Patient Location: E HR:40 bpm ECG Measurements Heart Rate 40 AXIS VT 208 P 120 QRSd 89 QRS 13 QT 480 T 26 QTc 384 Conclusion Sinus bradycardia...rate< 60 Atrial premature complex...SV complex w/ short R-R interval Anteroseptal infarct, age indeterminate...Q >35mS, T neg, V1-V2 Physician: 3rd degree heart block
[2023-11-04] MEDS: Normal Saline 1,000 ML 1000 ML IV (23:09)
[2023-11-04 23:11] LABS: Abs Immature Grans 0.11 10^3/uL (0.0-0.06); Absolute Basophil Count 0.06 10^3/uL (0.0-0.2); Absolute Eosinophil Count 0.13 10^3/uL (0.0-0.7); Absolute Lymphocyte Count 2.36 10^3/uL (1.2-3.4); Absolute Monocyte Count 1.16 10^3/uL (0.1-0.8); Absolute Neutrophil Count 7.68 10^3/uL (1.2-6.7); Basophils % 0.5 %; Eosinophils % 1.1 %; HCT 33.8 % (36.0-46.0); HGB 9.7 g/dL (11.2-15.7); Lymphocytes % 20.5 %; MCH 23.3 pg (27.0-33.0); MCHC 28.7 % (32.0-36.0); MCV 81 fL (80-95); MPV 10.8 fL (8.0-11.0); Monocytes % 10.1 %; Neutrophils % 66.8 %; Platelet Count 465 10^3/uL (130-400); RBC 4.17 10^6/uL (3.93-5.22); RDW 19.2 % (11.7-14.6)
[2023-11-04] MEDS: Atropine 1 MG/10 ML SYRINGE 0.5 MG IVP (23:11)
[2023-11-04 23:25] LABS: INR 1.4 (0.9-1.1); PTT Activated 33.4 sec (23.6-32.8)
[2023-11-04 23:36] LABS: ALT 77 U/L (14-59); AST 130 U/L (15-37); Albumin 2.8 g/dL (3.4-5.0); Alkaline Phosphatase 88 U/L (46-116); Anion Gap 13.8 mmol/L (3-11); BUN 38 mg/dL (7-18); Bilirubin, Total 0.5 mg/dL (0.2-1.0); CO2 18.2 mmol/L (21.0-32.0); Calcium 8.3 mg/dL (8.5-10.1); Chloride 97 mmol/L (98-107); Estimated GFR 25.57 (mL/min/1.73m2); Sodium 129 mmol/L (136-145); TSH (W/Ref FT4) 1.78 uIU/mL (0.36-3.74); Total Protein 6.7 g/dL (6.4-8.2); Troponin I < 50 ng/L (< or =60)
[2023-11-04 23:40] LABS: Glucose 696 mg/dL (74-106); Potassium 6.8 mmol/L (3.5-5.1)
[2023-11-04] MEDS: Hydrocortisone SOD SUC. 100 MG VIAL IVP (23:50)
[2023-11-04] MEDS: Insulin REGULAR-Human 100 UNITS/ML UNIT 10 UNITS IV (23:51)
[2023-11-05] VITALS (22 sets, daily range): BP systolic 95–132; BP diastolic 33–62; PULSE 46–65; RESP 12–24; O2SAT 90–100
[2023-11-05] MEDS: Calcium Gluconate 4.65 MEQ/10 ML VIAL 4.65 MG IVP (00:05)
--- NOTE | 2023-11-05 00:15 | DI.RAD_ITS ---
Exam(s) XR PORTABLE CHEST AP POST LINE EXAM: XR PORTABLE CHEST AP POST LINE CLINICAL HISTORY: post line. TECHNIQUE: 2D digital imaging was performed. COMPARISON: CR,XR XR PORTABLE CHEST AP POST LINE from 11/05/2023 FINDINGS: Single AP portable view. Cardiac pad noted over the left hemithorax. Heart size is upper normal. The mediastinum is not widened. Distal tip of the right jugular pacemaker has been repositioned and presently in satisfactory positio n in the right atrium. Pulmonary venous hypertension pattern noted. No pleural effusions. No pneumothorax. Multiple heale d left-sided rib fractures again noted. IMPRESSION: Improved position of the pacemaker lead. DATA REPOSITORY: RADIATION DOSE DELIVERED:
--- NOTE | 2023-11-05 00:49 | ED.GENADUL_ITS ---
Discharge Plan Disposition Patient Disposition: Transfer-Acute Inpatient Care Specific Acute Inpt Facility: [facility] Condition: Critical Discharge Details Clinical Impression: Symptomatic bradycardia, Urinary tract infection, Hyperosmolar hyperglycemic state (HHS), Septic shock, Dehydration Primary Care Provider: Dean Camilo ED Provider: Cullen Ponce Home Meds and New Rx's Prescriptions: No Action nystatin 100,000 unit/gram powder 1 applic Topical BID PRN (Reason: itching) Qty: 60 11RF Rx Instructions: Apply to abdominal fold and under breasts. diltiazem HCl 120 mg capsule,extended release 24hr 120 mg PO DAILY Jardiance 10 mg tablet 10 mg PO DAILY insulin lispro [Humalog KwikPen Insulin] 100 unit/mL insulin pen See Rx Instructions SUBCUT QMEALS Patient Comments: INJECT 12 UNITS SUBCUTANEOUSLY DIRECTED WITH MEALS Rx Instructions: 12 units in AM and 6 units PM subcutaneously with meals; (DME) Depend Underwear For Women Lrg Misc See Rx Instructions .Route Qty: 100 11RF Rx Instructions: Depends pull up large lisinopril 10 mg Tablet 10 mg PO DAILY insulin glargine [Lantus Solostar U-100 Insulin] 100 unit/mL (3 mL) Insulin Pen 20 unit subcut HS Qty: 15 1RF metoprolol succinate 100 mg tablet extended release 24 hr 100 mg PO DAILY Qty: 0 0RF Xarelto 15 mg Tablet 15 mg PO DAILY magnesium oxide [MagOx] 400 MG tablet 400 mg PO DAILY Qty: 30 0RF metformin 1,000 mg tablet 1,000 mg PO BID Qty: 60 0RF omeprazole 20 MG capsule,delayed release(DR/EC) 20 mg PO DAILY Qty: 30 0RF furosemide 20 mg tablet 20 mg PO DAILY Qty: 30 0RF Patient Comments: pt unsure if they are taking this medication aspirin [Children's Aspirin] 81 mg Tablet,Chewable 81 mg PO DAILY Qty: 0 0RF atorvastatin 20 mg tablet 80 mg PO HS fluconazole [Diflucan] 200 mg tablet 200 mg PO DAILY Qty: 7 0RF Rx Instructions: take 1 tablet every 48 hours until completed nystatin 100,000 unit/gram powder 1 applic topical BID Qty: 60 0RF Discharge Data Discharge Date/Time-TO BE ENTERED AT DEPARTURE: 11/05/23 02:08 HPI General Date/Time Provider Initiated Documentation: 11/04/23 22:46 . HPI Narrative: This is a 73-year-old female with a past medical history of type 2 diabetes, chronic kidney disease, previously DNR/DNI but now full code on last admission, chronic indwelling Barber catheter, chronic ulcers of the lower extremities, atrial fibrillation on Xarelto, previous TIA/stroke, presents today for evaluation of weakness. Patient states that for the last week or 2 she has been having mild to moderate diarrhea, and then this evening she felt notably weak and lightheaded. Patient called EMS, on their arrival patient was bradycardic in the 30s, hypotensive, blood sugar was measured to be too high to read. Patient was given 0.5 mg of atropine with no effect. She was brought in by EMS. Patient denies any chest pain, headache, syncope, or vomiting. She states that she has been taking her medications as directed but not her nighttime medications tonight. She does feel notably lightheaded and weak every time she gets up or tries to do something. No other complaints at this time. No other modifying factors. Of note patient is on diltiazem 120 mg and metoprolol 100 mg. Related Data Home Medications Medication Instructions Recorded Confirmed lisinopril 10 mg tablet 10 mg PO DAILY 05/12/19 05/12/23 nystatin 100,000 unit/gram topical 1 applic topical BID PRN itching 10/31/20 05/12/23 powder #60 grams insulin glargine 100 unit/mL (3 20 unit (0.2 mL) subcut HS #15 mL 11/27/20 05/12/23 mL) subcutaneous pen (Lantus Solostar U-100 Insulin) metoprolol succinate 100 mg 100 mg PO DAILY #0 tabs 11/27/20 05/12/23 tablet,extended release 24 hr rivaroxaban 15 mg tablet (Xarelto) 15 mg PO DAILY 07/31/21 05/12/23 furosemide 20 mg tablet 20 mg PO DAILY #30 tabs 08/02/21 05/12/23 magnesium oxide 400 mg (241.3 mg 400 mg PO DAILY #30 tabs 08/02/21 05/12/23 magnesium) tablet (MagOx) metformin 1,000 mg tablet 1,000 mg PO BID #60 tabs 08/02/21 05/12/23 omeprazole 20 mg capsule,delayed 20 mg PO DAILY #30 caps 08/02/21 05/12/23 release diltiazem HCl 120 mg 120 mg PO DAILY 10/16/21 05/12/23 capsule,extended release 24 hr empagliflozin 10 mg tablet 10 mg PO DAILY 10/16/21 05/12/23 (Jardiance) insulin lispro 100 unit/mL See Rx Instructions subcut QMEALS 12/17/21 05/12/23 subcutaneous pen (Humalog KwikPen (U-100) Insulin) diaper,brief,adult,disposable #100 ea 09/30/22 05/12/23 (Depend Underwear For Women Large) aspirin 81 mg chewable tablet 81 mg PO DAILY #0 tabs 12/31/22 05/12/23 (Children's Aspirin) atorvastatin 20 mg tablet 80 mg PO HS 01/26/23 05/12/23 fluconazole 200 mg tablet 200 mg PO DAILY #7 tabs 05/12/23 (Diflucan) nystatin 100,000 unit/gram topical 1 applic topical BID #60 grams 05/12/23 powder Previous Rx's Medication Instructions Recorded nystatin 100,000 unit/gram topical 1 applic topical BID PRN itching 10/31/20 powder #60 grams insulin glargine 100 unit/mL (3 20 unit (0.2 mL) subcut HS #15 mL 11/27/20 mL) subcutaneous pen (Lantus Solostar U-100 Insulin) metoprolol succinate 100 mg 100 mg PO DAILY #0 tabs 11/27/20 tablet,extended release 24 hr furosemide 20 mg tablet 20 mg PO DAILY #30 tabs 08/02/21 magnesium oxide 400 mg (241.3 mg 400 mg PO DAILY #30 tabs 08/02/21 magnesium) tablet (MagOx) metformin 1,000 mg tablet 1,000 mg PO BID #60 tabs 08/02/21 omeprazole 20 mg capsule,delayed 20 mg PO DAILY #30 caps 08/02/21 release diaper,brief,adult,disposable #100 ea 09/30/22 (Depend Underwear For Women Large) aspirin 81 mg chewable tablet 81 mg PO DAILY #0 tabs 12/31/22 (Children's Aspirin) fluconazole 200 mg tablet 200 mg PO DAILY #7 tabs 05/12/23 (Diflucan) nystatin 100,000 unit/gram topical 1 applic topical BID #60 grams 05/12/23 powder Allergies Allergy/AdvReac Type Severity Reaction Status Date / Time trazodone AdvReac Intermediate NIGHTMARES Verified 11/04/23 22:57 General Stated Complaint: GenMedical ARGENIS: 2 Exam Narrative Exam Narrative: 1.Const: Well-nourished, Well-developed, appearing stated age 2.Eyes: PERRL, no conjunctival injection, and symmetrical lids. 3.ENT: Atraumatic external nose and ears. Notably dry MM. Neck: Symmetric, trachea midline, No thyromegaly. 4.CVS: +S1/S2, No murmurs or gallops. Peripheral pulses 2+ and equal in all extremities. Brisk capillary refill in all extremities. 5.RESP: Unlabored respiratory effort. Clear to auscultation bilaterally. No wheezes rales or rhonchi 6.GI: Soft, Nontender/Nondistended, No hepatosplenomegaly. No guarding or rebound. 7.MSK: Normocephalic/Atraumatic, Extremities w/o deformity or ttp No cyanosis or clubbing, Normal movement of all extremities 8.Skin: Warm, Dry. Chronic wounds are noted on the lower extremities bilaterally. Fungal infection/dermatitis noted under the breast bilaterally. 9.Neuro: compression molding machine tender II-XII grossly intact. Sensation grossly intact, no focal neurologic deficits. 10.Psych: (AAO) x3. Appropriate mood and affect which is slightly surprising considering her vital sign abnormalities. Course Vital Signs Vital signs: Vital Signs Temperature 35.3 C L 11/04/23 22:46 Pulse 50 L 11/04/23 22:46 Respiratory Rate 18 11/04/23 22:46 Blood Pressure 91/37 L 11/04/23 22:46 Pulse Oximetry 95 11/04/23 22:46 Temperature 35.3 C L 11/04/23 22:46 Temperature Source Temporal Artery Scan 11/04/23 22:46 Pulse 44 L 11/04/23 23:00 Pulse 83 11/04/23 23:10 Respiratory Rate 23 11/04/23 23:10 Respiratory Effort Normal 11/04/23 22:55 Respiratory Depth Normal 11/04/23 22:55 Respiratory Pattern Normal 11/04/23 22:55 Blood Pressure 102/35 L 11/04/23 23:00 Blood Pressure Mean 51 11/04/23 23:00 Pulse Oximetry 97 11/04/23 23:10 Pain Level 0 11/04/23 22:46 Lab/Test Results Lab/Test Results: 11/04/23 23:08 Blood Blood Culture - Pending 11/04/23 23:08 Blood Blood Culture - Pending Laboratory Tests Range/Units 11/04/23 22:55 WBC (4.4-10.8) 10^3/uL 11.50 H RBC (3.93-5.22) 10^6/uL 4.17 Hgb (11.2-15.7) g/dL 9.7 L Hct (36.0-46.0) % 33.8 L MCV (80-95) fL 81 MCH (27.0-33.0) pg 23.3 L MCHC (32.0-36.0) % 28.7 L RDW (11.7-14.6) % 19.2 H Plt Count (130-400) 10^3/uL 465 H MPV (8.0-11.0) fL 10.8 Immature Gran % % 1.0 Neutrophils % % 66.8 Lymphocytes % % 20.5 Monocytes % % 10.1 Eosinophils % % 1.1 Basophils % % 0.5 Nucleated RBC % (0.0-0.3) % 0.0 Absolute Neutrophils (1.2-6.7) 10^3/uL 7.68 H Absolute Lymphocytes (1.2-3.4) 10^3/uL 2.36 Absolute Monocytes (0.1-0.8) 10^3/uL 1.16 H Absolute Eosinophils (0.0-0.7) 10^3/uL 0.13 Absolute Basophils (0.0-0.2) 10^3/uL 0.06 PT (9.1-11.1) sec 14.0 H INR (0.9-1.1) 1.4 H APTT (23.6-32.8) sec 33.4 H Sodium (136-145) mmol/L 129 L Potassium (3.5-5.1) mmol/L 6.8 H* Chloride (98-107) mmol/L 97 L Carbon Dioxide (21.0-32.0) mmol/L 18.2 L Anion Gap (3-11) mmol/L 13.8 H BUN (7-18) mg/dL 38 H Creatinine (0.55-1.02) mg/dL 2.0 H Est GFR (CKD-EPI 2020) (mL/min/1.73m2) 25.57 Glucose (74-106) mg/dL 696 H* Calcium (8.5-10.1) mg/dL 8.3 L Total Bilirubin (0.2-1.0) mg/dL 0.5 AST (15-37) U/L 130 H ALT (14-59) U/L 77 H Alkaline Phosphatase (46-116) U/L 88 Troponin I (< or =60) ng/L < 50 Total Protein (6.4-8.2) g/dL 6.7 Albumin (3.4-5.0) g/dL 2.8 L TSH (0.36-3.74) uIU/mL 1.78 Procedures Central Line Placement Right IJ: Time Out Performed: Yes Patient Placed on Monitor/Pulse Ox: Yes MD Prep: mask, gown and gloves Central Line Prep: Chlorhexidine scrub Local Anesthetic: Lidocaine 1% Amount of anesthesia used (mL): 5 Ultrasound Used for Placement: Yes Central Line Lumen Inserted: single Post Procedure: good blood return, all ports aspirated, flushed, capped and sutured in place with 2-0 silk Post Procedure X-Ray: tip of catheter in good position Patient Tolerated Procedure: well Complications: none Other Description: After Cordis was placed, utilizing sterile technique the transducer was placed through the sheath and advanced to 20 cm. Balloon was then inflated, utilizing ultrasound the balloon was advanced forward until we visualized it going into the right atria. Unfortunately after this despite continued advancement of the wire the tip would not pass the mitral valve. It continued to get hung up on the medial aspect of the mitral valve. Were unable to advance it forward past this. We retracted, rotated, and readvanced with no success. We were able to sweet pickle maker the electrical component on the monitor and EKG, however there was no capture that we are able to perform since it would not pass through the mitral valve. Catheter was left in place. Despite all of this patient tolerated the procedure notably well. Medical Decision Making This is a 73-year-old female with a past medical history of type 2 diabetes, chronic kidney disease, previously DNR/DNI but now full code on last admission, chronic indwelling Barber catheter, chronic ulcers of the lower extremities, atrial fibrillation on Xarelto, previous TIA/stroke, presents today for evaluation of weakness. Patient states that for the last week or 2 she has been having mild to moderate diarrhea, and then this evening she felt notably weak and lightheaded. Patient called EMS, on their arrival patient was bradycardic in the 30s, hypotensive, blood sugar was measured to be too high to read. Patient was given 0.5 mg of atropine with no effect. She was brought in by EMS. Patient denies any chest pain, headache, syncope, or vomiting. She states that she has been taking her medications as directed but not her nighttime medications tonight. She does feel notably lightheaded and weak every time she gets up or tries to do something. No other complaints at this time. No other modifying factors. Of note patient is on diltiazem 120 mg and metoprolol 100 mg. Physical exam demonstrates a bradycardic hypotensive symptomatic patient. Chronic indwelling Barber catheter demonstrates sludge noted in the catheter itself. Patient's blood sugar is over 600, she surprisingly does not demonstrate any focal neurologic deficits. Although she states that she feels lightheaded, she has no significant slurring of her speech, she is able to communicate and interact well, and is moving all extremities without focal deficit. Differential is broad, however severe dehydration, severe electrolyte abnormality versus HHNK, suspect hyperkalemia. EKG shows evidence of sinus bradycardia versus third-degree block. Urinary tract infection is also of high concern. We will place pacer pads, rehydrate with a liter of normal saline, give 0.5 mg of atropine, monitor closely and reassess. 12:30 AM Laboratory workup returned, patient's white count is 11.5, platelets normal, hemoglobin 9.7. Potassium is 6.8, creatinine up at 2. Mild transaminitis of AST of 130 and ALT of 77. Troponin normal, TSH normal. With the patient's potassium of 6.8, we will give calcium gluconate, because her sugar is high will not do additional D50. Will give 10 units of IV insulin, 3 albuterol nebulizers, and continue hydration. Unfortunately after the atropine administration the patient had no improvement whatsoever. Discussed risk and benefits of transvenous pacer, patient still remains notably bradycardic and mildly hypotensive. Patient accepts/consents for procedure. A Cordis was placed in the right IJ without complication, then with the help of my colleague Dr. Ford I floated the pacer and he monitored for cardiac visualization with the ultrasound. Pacer was identified on ultrasound at around 28 to 22 cm, unfortunately despite advancement, rotation of the wire, circular rotation of the wire, and pulling back and replacement we were not able to get the inflated tip to past the medial aspect of the tricuspid valve. The catheter tip kept getting stuck in that area. With the desire to not cause further problems we decided to hold and leave the tip in the right atria. Currently the measured depth of the pacer wire is at 30 cm. During procedure the patient's heart rate improved as therapies were given for her hyperkalemia, heart rate is now in the 50s to 60s, blood pressure has increased to the low 100s systolic. 2 g of ceft riaxone were administered for her suspected urinary tract infection. We contacted cardiology at [facility] and spoke with , she agrees and accepts the patient for admission under . Patient will be transferred via paramedics for further management. 1:20 AM Of note we are pending VBG, there was a delay as the initial order was not able to be run on the first set of blood, there was then a delay getting the second set. Anion gap is only 12-13, VBG has now returned and is 7.2. Will hold off on insulin drip for the time being. Patient remains hemodynamically stable compared to her initial assessment. Patient will be transferred. I have extensively reviewed the treatment plan with the patient. I have addressed all patient concerns at this time. I have also discussed the plan with the admitting physician and they agree with the current assessment and plan and have agreed to assume responsibility for the patient. All parties demonstrate verbal understanding and agreement with our assessment and plan at this time. The documentation in this chart was dictated using [employer] dictation software. Please excuse any dictation errors. At time of transfer the patient was reassessed and continued to demonstrate No signs of acute respiratory distress requiring intubation or rapidly declining mental status. 2 AM After discharge the patient's repeat labs returned, potassium had improved at 5.9, glucose had improved to 520. Quality:SDOH Health Related Social Needs: No Data to Display Critical Care Time Critical Care Time Critical Care Time: Yes Total Critical Care Time: 120 Attestation: Upon my evaluation, this patient had a high probability of imminent or life- threatening deterioration, which required my direct attention, intervention, and personal management. I have personally provided 120 minutes of critical care time exclusive of time spent on separately billable procedures. Time includes review of laboratory data, radiology results, discussion with consultants, and monitoring for potential decompensation. Interventions were performed as documented. [facility] All Active Problems (Updated 11/05/23 @ 01:46 by Cullen Ponce DO) Dehydration (Acute) Septic shock (Acute) Hyperosmolar hyperglycemic state (HHS) (Acute) Urinary tract infection (Acute) Symptomatic bradycardia (Acute) Diabetic hyperosmolar non-ketotic state (Acute) AMS (altered mental status) (Acute) Acute UTI (Acute) Acute hyperglycemia (Acute) Full code status (Acute) Advance care planning (Acute) Brain TIA (Acute) Vitamin B12 deficiency (Acute) CVA (cerebral vascular accident) (Chronic) Impaired instrumental activities of daily living (Acute) DNR (do not resuscitate) (Acute) Loneliness (Acute) Chronic kidney disease (CKD) (Chronic) Venous stasis dermatitis (Acute) Decreased activities of daily living (ADL) (Acute) Need for home health care (Acute) Nephrolithiasis (Chronic) Sacral decubitus ulcer, stage II (Acute) Wound of right lower extremity (Acute) Hyperglycemia (Acute) Trochanteric bursitis, right hip (Acute) Right ankle sprain (Acute) Hip pain, right (Acute) GI bleed (Acute) Fracture, lumbar vertebra, compression (Acute) PSVT (paroxysmal supraventricular tachycardia) (Acute) Urinary retention (Chronic 03/31/16) Poorly controlled diabetes mellitus (Chronic) Transient neurologic deficit (Acute) Fungal dermatitis (Acute) Atrial flutter (Acute) Vaginal bleeding, abnormal (Acute) Atrial fibrillation and flutter (Chronic) Diabetes mellitus type 2 in obese (Acute) Fracture of femoral neck, right (Acute) Retention, urine (Acute) Medical History (Updated 11/05/23 @ 01:46 by Cullen Ponce DO) Infestation by bed bug Hx of malignant melanoma GERD (gastroesophageal reflux disease) H/O menorrhagia Supraventricular tachycardia History of traumatic fracture of hip Unsteady gait Hard of hearing Vision changes Anemia 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 Palliative care encounter Pulmonary hypertension Multiple rib fractures involving four or more ribs Hypertension S/P right hip fracture TIA (transient ischemic attack) Hyperlipidemia Atrial fibrillation CHF (congestive heart failure) LVEF 50-55%, diastolic dysfunction Diabetes Cataracts, bilateral Surgical History History of bilateral cataract extraction History of suprapubic catheter Status post right hip replacement Family History Other Diabetes Heart disease Hyperlipidemia Hypertension Stroke Social History Smoking/Tobacco Use Status: Former Tobacco Use Smoking risk assessment performed?: Yes Alcohol Intake: never Drug use: Never Substance use type: does not use Household members: none Housing: apartment Do you feel safe at home: Yes Do you feel safe in your relationship?: Yes Additional Social history: Lives alone. [address] Does not drive. POCUS Exam (ED) Limited Cardiac Exam DATE OF EXAM: 11/05/23 TIME OF EXAM: 03:16 PROVIDER THAT PERFORMED THE STUDY: Cullen Ponce IS THIS A REPEAT EXAM DURING THIS ENCOUNTER: no REASON FOR EXAM: Syncope VISUALIZED STRUCTURES: Left atrium, Left ventricle, Right atrium, Right ventricle and Interventricular septum VIEW OBTAINED: Subxiphoid PERTINENT FINDINGS/IMPRESSION: No apparent abnormalities INCIDENTAL FINDINGS: Please see procedure note for discussion of transvenous pacer findings Exam complete
[2023-11-05 01:22] LABS: BE (Venous) -11 mmol/L (-2-3); HCO3 (Venous) 17 mmol/L (23-28); O2 Sat (Venous) 44 %; TCO2 (Venous) 16 mmol/L (24-29); pCO2 (Venous) 40 mmHg (41-51); pH (Venous) 7.24 (7.31-7.41); pO2 (Venous) 32 mmHg
[2023-11-05] MEDS: cefTRIAXone 2 GM/50 ML BAG IVPB (01:25)
[2023-11-05] MEDS: Albuterol 2.5 MG/3 ML INH SOLN VIAL 7.5 MG UPD (01:25)
[2023-11-05 01:27] LABS: Bilirubin Negative (Negative); Blood Small (Negative); Clarity Cloudy (Clear); Glucose 500 mg/dL (Negative); Ketones Negative (Negative); Leukocyte Esterase Small (Negative); Nitrite Negative (Negative); Specific Gravity <= 1.005 (1.005-1.025); Urobilinogen 0.2 mg/dL (Up to 0.2)
--- NOTE | 2023-11-05 01:33 | DI.VRAD_ITS ---
PROCEDURE INFORMATION: Exam: XR Chest Exam date and time: 11/05/2023 12:20 AM Age: 73 years old Clinical indication: Device placement; Other: Central line; Patient HX: Post line TECHNIQUE: Imaging protocol: Radiologic exam of the chest. Views: 1 view. COMPARISON: CR XR PORTABLE CHEST AP 04/23/2023 6:34 AM FINDINGS: Tubes, catheters and devices: There is a transvenous pacemaker arising from the right internal jugular vein and present. The tip appears to lie within the right atrium versus right ventricle. Lateral film would be helpful for further evaluation. Clinical correlation is recommended. Lungs: There is pulmonary venous congestion. There is diffuse interstitial edema. Underlying inflammatory or infectious process not excluded. Pleural spaces: There are no pleural effusions. No evidence of pneumothorax. Heart/Mediastinum: The heart is enlarged. There is prominence of the mediastinum. Bones/joints: The skeletal structures and soft tissues show no evidence of fracture or other acute processes. Soft tissues: The soft tissues of the extrathoracic region are unremarkable. IMPRESSION: 1. Probable congestive heart failure. Underlying inflammatory or infectious process not excluded. 2. There is a transvenous pacemaker arising from the right internal jugular vein and present. The tip appears to lie within the right atrium versus right ventricle. Lateral film would be helpful for further evaluation. Clinical correlation is recommended. Dictated and Authenticated by: Sebastian Russell MD. Ordering:CARLEY Berman MD
--- NOTE | 2023-11-05 01:34 | DI.VRAD_ITS ---
PROCEDURE INFORMATION: Exam: XR Chest Exam date and time: 11/05/2023 12:24 AM Age: 73 years old Clinical indication: Device placement; Patient HX: Repositioning of central line TECHNIQUE: Imaging protocol: Radiologic exam of the chest. Views: 1 view. COMPARISON: CR XR PORTABLE CHEST AP 11/05/2023 12:20 AM FINDINGS: Tubes, catheters and devices: The right internal jugular transvenous pacemaker has been reposition and appears to lie at the right atrium. Lungs: There is pulmonary venous congestion. There is diffuse interstitial edema. Underlying inflammatory or infectious process not excluded. Pleural spaces: There are no pleural effusions. No evidence of pneumothorax. Heart/Mediastinum: The heart is enlarged. There is prominence of the mediastinum. Bones/joints: The skeletal structures and soft tissues show no evidence of fracture or other acute processes. Soft tissues: The soft tissues of the extrathoracic region are unremarkable. IMPRESSION: 1. Probable congestive heart failure. Underlying inflammatory or infectious process not excluded. 2. The right internal jugular transvenous pacemaker has been reposition and appears to lie at the right atrium. Dictated and Authenticated by: Sebastian Russell MD. Ordering:CARLEY Berman MD
[2023-11-05 01:36] LABS: Bacteria Moderate HPF (Negative); WBC >50 HPF (0-5)
[2023-11-05 01:37] LABS: C & S Indicated? Yes; Crystals Negative HPF (Negative); Mucus Negative (Negative)
[2023-11-05 01:44] LABS: Anion Gap 14.9 mmol/L (3-11); BUN 37 mg/dL (7-18); CO2 17.1 mmol/L (21.0-32.0); CREATININE 1.8 mg/dL (0.55-1.02); Chloride 101 mmol/L (98-107); Estimated GFR 29.02 (mL/min/1.73m2); Potassium 5.9 mmol/L (3.5-5.1); Sodium 133 mmol/L (136-145)
[2023-11-05 01:46] LABS: Glucose 520 mg/dL (74-106); Troponin I < 50 ng/L (< or =60)
[2023-11-05] MEDS: Nystatin POWDER 15 GM JAR (01:54)
[2023-11-05] MEDS: Ondansetron 4 MG/2 ML VIAL (01:54)
[2023-11-05] MEDS: Normal Saline 50 ML 100 ML (01:55)
--- NOTE | 2023-11-05 04:58 | NUR.NOTE ---
Pt placed on care management referral list, pt needs assistance with taking care a pet bird while she is admitted to [facility]
--- NOTE | 2023-11-05 10:34 | PDOC.CMPRO ---
Date of service: 11/05/23 Time of Service: 10:34 Care Management Progress Note Progress Note Text Progress Note Text: CM was consulted via ED referral regarding Hope's pets at home; Hope was transferred to [facility] last night. CM attempted to call her daughter, who is listed as contact and on HIPAA, with no answer/no VM available. CM contacted her community health nursing director, Nola Castro ([phone]), who stated that he would attempt to reach Hope's supports to check in on her bird. SDOH(Care Management) Screening Will the Patient Participate in the Screening?: Declined to provide
--- NOTE | 2023-11-05 23:00 | DI.RAD_ITS ---
Exam(s) XR PORTABLE CHEST AP POST LINE EXAM: XR PORTABLE CHEST AP POST LINE CLINICAL HISTORY: post procedure. TECHNIQUE: 2D digital imaging was performed. COMPARISON: CR,XR XR PORTABLE CHEST AP from 04/23/2023 CR,XR XR PORTABLE CHEST AP POST LINE from 11/05/2023 FINDINGS: Single AP portable view. There is a right jugular transvenous pacemaker wire which appears coiled in the right atrium. Heart size is upper normal. The mediastinum is not widened. There is a pulmonary venous hypertension pattern but no airspace pulmonary edema. There are multiple healed left-sided rib fractures noted. IMPRESSION: As above. Pacemaker wire requires repositioning DATA REPOSITORY: RADIATION DOSE DELIVERED:
== END 2023-11-05 02:08 | disposition short-term general hospital (02) ==
PROVIDERS: Emergency Provider Student in an Organized Health Care Education/Training Program; PCP Physician Assistant
DX: R00.1 Bradycardia, unspecified (principal); N39.0 Urinary tract infection, site not specified; E11.00 Type 2 diabetes mellitus with hyperosmolarity without nonketotic hyperglycemic-hyperosmolar coma (NKHHC); R65.21 Severe sepsis with septic shock; E86.0 Dehydration; I11.0 Hypertensive heart disease with heart failure; I50.9 Heart failure, unspecified; Z86.73 Personal history of transient ischemic attack (TIA), and cerebral infarction without residual deficits; Z95.0 Presence of cardiac pacemaker; Z79.899 Other long term (current) drug therapy
CPT/HCPCS: 71045; 80048; 80053; 82805; 87040; 87077; 93005; 93308; 94640; 96361; 96365; 99285; 81003; 81015; 84443; 84484; 85025; 85610; 85730; 87086; 87186; 93010; J0461; J0612; J0696; J1720; J1815; J2405; J7613

== ENCOUNTER 2024-02-08 15:12 | Outpatient (REF) | payer MEDICARE, MEDICAID, SELFPAY ==
--- OUTSIDE RECORDS SUMMARY | 2024-02-08 15:29 | XMS_ITS | Clinical Summary ---
Author Organization [facility] [place] [address] Care Team Providers Care Treatment Coordinator Name Role Phone Dean Camilo Primary Care Provider Allergies Active Allergy Reactions Criticality Noted Date Comments Trazodone Medium hallucinations Medications Medication Sig Dispensed Refills Start Date End Date Status MAGNESIUM GLUCONATE ORAL Take 500 mg by mouth 3 times daily. Active omeprazole (PRILOSEC) 20 mg Capsule, Delayed Release(E.C.) Take 20 mg by mouth daily. Active atorvastatin (Lipitor) 20 mg tabletIndications:Hy perlipidemia, unspecified hyperlipidemia type Take 1 tablet by mouth daily. 90 tablet 3 11/23/2023 Active metFORMIN (Glucophage) 500 mg tablet Take 1 tablet by mouth 2 times daily (with meals). 1000 mg = 2 tablets 60 tablet 3 11/23/2023 Active metoprolol succinate XL (Toprol-XL) 100 mg ER 24 hr tabletIndications:ve ntricular rate control in atrial fibrillation Take 3 tablets by mouth daily. Indications: ventricular rate control in atrial fibrillation 90 tablet 3 11/23/2023 Active rivaroxaban (Xarelto) 20 mg tabletIndications:At rial fibrillation Take 1 tablet by mouth every evening. With meals. (Please run Rx for pricing) 90 tablet 3 11/23/2023 Active cyanocobalamin, Vitamin B-12, (Vitamin B-12) 1,000 mcg tablet Take 1 tablet by mouth daily. 30 tablet 3 11/24/2023 Active insulin aspart U-100 (NovoLOG) 100 unit/mL (3 mL) Insulin Pen Check blood glucose before each meal. Inject 12 units of novolog by pen for lunch, 6 units for dinner 3 mL 11/23/2023 Active insulin glargine (Lantus Solostar U-100 Insulin) 100 unit/mL (3 mL) pen Inject 30 units every morning. Check blood glucose before [...] new dose, cont. to decrease as needed. 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, with fat layer exposed 02/15/2021 Seronegative rheumatoid arthritis 02/01/2018 Heart murmur 02/01/2018 Gastroesophageal reflux 02/01/2018 Pseudophakia, both eyes 02/01/2018 Diabetic peripheral neuropathy 02/01/2018 Hypertension, essential, benign 02/01/2018 Hyperlipidemia 02/01/2018 Syncope 01/08/2018 Symptomatic bradycardia 01/08/2018 Morbid obesity 01/08/2018 SVT (supraventricular tachycardia) 03/29/2014 Diabetes mellitus 03/29/2014 Permanent atrial fibrillation 03/29/2014 Gait instability 10/06/2011 Seronegative arthritis 10/06/2011 Osteoarthrosis, unspecified whether generalized or localized, pelvic region and thigh 10/06/2011 Osteoarthrosis, unspecified whether generalized or localized, lower leg 10/06/2011 Osteoarthrosis, unspecified whether generalized or localized, ankle and foot 10/06/2011 Nevus 07/29/2011 History of malignant melanoma 07/17/2011 History of basal cell carcinoma 07/17/2011 Personal history of malignant melanoma 1 Rosacea 01/01/2011 Basal cell carcinoma of back 01/01/2011 Malignant melanoma 12/31/2010 Overview (12/31/2010): Apr 2010 - upper central back Encounters Date Type Department Care Team Description 11/05/2023 2:58 AM EDT - 11/23/2023 2:00 PM EDT Hospital Encounter Surgical Unit Level [address] [place] [address] Kiko Che MD Yang, MD Mark Chatman, MD Armando Inman, MD Cassie Couch, MD Saniya Resendiz, Nicolás Rodriguez MD Persistent atrial fibrillation; Wound of right lower extremity, initial encounter; Chest discomfort; Hyperlipidemia, unspecified hyperlipidemia type; Atrial fibrillation; Diabetic ketoacidosis with coma associated with other specified diabetes mellitus Discharge Disposition: Home with [facility] from Last 3 Months Immunizations Name Administration Dates Next Due Influenza Unspecified Formulation 03/16/2017 Influenza Vaccine, Whole 05/05/2007 Tdap 11/20/2006 Zoster (Zostavax) LIVE 03/26/2015 Family History Medical History Relation Comments Diabetes Mother Heart Disease Mother Multiple Sclerosis Sister Relation Status Comments Mother Sister Social History Tobacco Use Types Packs/Day Years Used Date Smoking Tobacco: Former Cigarettes Q uit: 06/22/1979 Smokeless Tobacco: Never Comments:per phone call 01/02 Alcohol Use Standard Drinks/Week Comments Not Currently 0 (1 standard drink = 0.6 oz pur e alcohol) 1 drink every 3-4 months [facility] Utilities Answer Date Recorded In the past 12 months has th e electric, gas, oil, or water [employer] threatened to shut off services in your home? No 11/05/2023 Hunger Vital Sign Answer Date Recorded Within the past 12 months, y ou worried that your food would run out before you got the money to buy more. Never true 11/05/19 24 Within the past 12 months, t he food you bought just didn't last and you didn't have money to get more. Never true 11/05/2023 PRAPARE - Transportation Answer Date Re corded In the past 12 months, has l ack of transportation kept you from medical appointments or from getting medications? No 10/20 In the past 12 months, has l ack of transportation kept you from meetings, work, or from getting things needed for daily living? No 11/05/2023 Housing Stability Vital Sign Answer Carlos e Recorded In the last 12 months, was t here a time when you were not able to pay the mortgage or rent on time? No 11/05/2023 In the last 12 months, how many places have you lived? 1 11/05/2023 In the last 12 months, was t here a time when you did not have a steady place to sleep or slept in a half-way (including now)? No 11/05/2023 DH IPV Inpatient Questions Answer Date Recorded Does Anyone Try to Keep You From Having Contact with Others or Doing Things Outside Your Home? no 11/06/2023 Feels Threatened by Someone no 10/20 Feels Unsafe at Home or Work/School no 11/06/2023 Physical Signs of Abuse Present no 11/06/2023 Sex and Gender Information Value Date Recorded Sex Assigned at Not on file Gender Identity Not on file Sexual Orientation Not on file Last Filed Vital Signs Vital Sign Reading Time Taken Comments Blood Pressure 114/66 11/23/2023 11:17 AM EDT Pulse 96 11/19/2023 3:29 PM EDT Temperature 36.3 ??C (97.3 ??F) 11/23/2023 11:17 AM E DT Respiratory Rate 18 11/23/2023 11:17 AM EDT Oxygen Saturation 99% 11/23/2023 11:17 AM EDT Inhaled Oxygen Concentration - - Weight 86.2 kg (190 lb) 11/21/2023 2:29 PM EDT Height 168.9 cm (5' 6.5) 11/11/2023 10:46 AM ED T Body Mass Index 30.21 11/11/2023 10:46 AM EDT Plan of Treatment Health Maintenance Due Date Last Done Comments CT Colonography 1948 Colonoscopy 1948 Colorectal Cancer Screening 1948 FIT DNA 1948 FIT 1948 Sigmoidoscopy (10 year) with FIT yearly 1948 Sigmoidoscopy 1948 Pneumoccocal Vaccine: 65+ (1 of 2 - PCV) 1954 DM Opthalmology Exam 1958 DM Urine Microalbumin yearly 1958 Hepatitis C Screening 1966 Bone Density Scan 2013 Zoster vaccine (2 of 3) 05/21/2015 03/26/2015 Tetanus vaccine 11/20/2016 11/20/2006 DM Hemoglobin A1c 02/05/2024 11/05/2023, , 03/29/2014 Influenza (Flu) vaccine (1 o f 1 - Influenza standard series) 02/21/2024 03/16/2017, 05/05/2007 DM Creatinine yearly 11/21/2024 11/22/2023, 11/21/2023, 11/20/2023, Additional history exists Tdap adult Completed 11/20/2006 Covid-19 Vaccine Completed 10/27/2023, 12/2022, 09/23/2022, Additional history exists Procedures Procedure Name Priority Date/Time Associated Diagnosis Comments INTRINSIC FACTOR BLOCKING ANTIBODY STAT 11/23/2023 12:18 PM EDT POCT GLUCOSE Routine 11/23/2023 11:18 AM EDT POCT GLUCOSE Routine 11/23/2023 7:18 AM EDT POCT GLUCOSE Routine 11/22/2023 9:28 PM EDT POCT GLUCOSE Routine 11/22/2023 6:30 PM EDT POCT GLUCOSE Routine 11/22/2023 11:36 AM EDT POCT GLUCOSE Routine 11/22/2023 7:48 AM EDT DIFFERENTIAL, AUTOMATED Routine 11/22/2023 4:25 AM EDT HEMOGRAM Routine 11/22/2023 4:25 AM EDT CBC (WITH DIFF) Routine 11/22/2023 4:25 AM EDT MAGNESIUM Routine 11/22/2023 4:25 AM EDT BASIC METABOLIC PANEL Routine 11/22/2023 4:25 AM EDT POCT GLUCOSE Routine 11/21/2023 11:02 PM EDT POCT GLUCOSE Routine 11/21/2023 10:32 PM EDT POCT GLUCOSE Routine 11/21/2023 3:56 PM EDT POCT GLUCOSE Routine 11/21/2023 12:04 PM EDT POCT GLUCOSE Routine 11/21/2023 8:11 AM EDT POCT GLUCOSE Routine 11/21/2023 4:15 AM EDT DIFFERENTIAL, AUTOMATED Routine 11/21/2023 4:13 AM EDT HEMOGRAM Routine 11/21/2023 4:13 AM EDT CBC (WITH DIFF) Routine 11/21/2023 4:13 AM EDT MAGNESIUM Routine 11/21/2023 4:13 AM EDT BASIC METABOLIC PANEL Routine 11/21/2023 4:13 AM EDT POCT GLUCOSE Routine 11/20/2023 7:37 PM EDT POCT GLUCOSE Routine 11/20/2023 4:14 PM EDT POCT GLUCOSE Routine 11/20/2023 11:13 AM EDT POCT GLUCOSE Routine 11/20/2023 7:34 AM EDT DIFFERENTIAL, AUTOMATED Routine 11/20/2023 5:58 AM EDT HEMOGRAM Routine 11/20/2023 5:58 AM EDT CBC (WITH DIFF) Routine 11/20/2023 5:58 AM EDT MAGNESIUM Routine 11/20/2023 5:58 AM EDT BASIC METABOLIC PANEL Routine 11/20/2023 5:58 AM EDT POCT GLUCOSE Routine 11/19/2023 9:22 PM EDT POCT GLUCOSE Routine 11/19/2023 3:31 PM EDT POCT GLUCOSE Routine 11/19/2023 11:40 AM EDT POCT GLUCOSE Routine 11/19/2023 7:29 AM EDT DIFFERENTIAL, AUTOMATED Routine 11/19/2023 1:48 AM EDT HEMOGRAM Routine 11/19/2023 1:48 AM EDT CBC (WITH DIFF) Routine 11/19/2023 1:48 AM EDT MAGNESIUM Routine 11/19/2023 1:48 AM EDT BASIC METABOLIC PANEL Routine 11/19/2023 1:48 AM EDT POCT GLUCOSE Routine 11/18/2023 7:34 PM EDT POCT GLUCOSE Routine 11/18/2023 5:16 PM EDT POCT GLUCOSE Routine 11/18/2023 3:26 PM EDT POCT GLUCOSE Routine 11/18/2023 12:50 PM EDT POCT GLUCOSE Routine 11/18/2023 11:03 AM EDT POCT GLUCOSE Routine 11/18/2023 7:32 AM EDT DIFFERENTIAL, AUTOMATED Routine 11/18/2023 5:21 AM EDT HEMOGRAM Routine 11/18/2023 5:21 AM EDT CBC (WITH DIFF) Routine 11/18/2023 5:21 AM EDT MAGNESIUM Routine 11/18/2023 5:21 AM EDT BASIC METABOLIC PANEL Routine 11/18/2023 5:21 AM EDT POCT GLUCOSE Routine 11/17/2023 11:36 PM EDT POCT GLUCOSE Routine 11/17/2023 4:35 PM EDT POCT GLUCOSE Routine 11/17/2023 1:49 PM EDT POCT GLUCOSE Routine 11/17/2023 11:44 AM EDT POCT GLUCOSE Routine 11/17/2023 8:08 AM EDT DIFFERENTIAL, AUTOMATED Routine 11/17/2023 5:13 AM EDT HEMOGRAM Routine 11/17/2023 5:13 AM EDT CBC (WITH DIFF) Routine 11/17/2023 5:13 AM EDT MAGNESIUM Routine 11/17/2023 5:13 AM EDT BASIC METABOLIC PANEL Routine 11/17/2023 5:13 AM EDT POCT GLUCOSE Routine 11/17/2023 3:50 AM EDT POCT GLUCOSE Routine 11/16/2023 11:45 PM EDT POCT GLUCOSE Routine 11/16/2023 7:29 PM EDT POCT GLUCOSE Routine 11/16/2023 3:05 PM EDT POCT GLUCOSE Routine 11/16/2023 11:31 AM EDT POCT GLUCOSE Routine 11/16/2023 8:00 AM EDT POCT GLUCOSE Routine 11/16/2023 3:36 AM EDT DIFFERENTIAL, AUTOMATED Routine 11/16/2023 3:22 AM EDT HEMOGRAM Routine 11/16/2023 3:22 AM EDT CBC (WITH DIFF) Routine 11/16/2023 3:22 AM EDT MAGNESIUM Routine 11/16/2023 3:22 AM EDT BASIC METABOLIC PANEL Routine 11/16/2023 3:22 AM EDT POCT GLUCOSE Routine 11/15/2023 11:27 PM EDT POCT GLUCOSE Routine 11/15/2023 8:03 PM EDT POCT GLUCOSE Routine 11/15/2023 6:38 PM EDT POCT GLUCOSE Routine 11/15/2023 6:18 PM EDT POCT GLUCOSE Routine 11/15/2023 6:02 PM EDT POCT GLUCOSE Routine 11/15/2023 3:42 PM EDT EKG 12-LEAD STAT 11/15/2023 2:56 PM EDT Chest discomfort POCT GLUCOSE Routine 11/15/2023 2:38 PM EDT POCT GLUCOSE Routine 11/15/2023 12:28 PM EDT POCT GLUCOSE Routine 11/15/2023 10:32 AM EDT POCT GLUCOSE Routine 11/15/2023 8:24 AM EDT DIFFERENTIAL, AUTOMATED Routine 11/15/2023 3:57 AM EDT HEMOGRAM Routine 11/15/2023 3:57 AM EDT CBC (WITH DIFF) Routine 11/15/2023 3:57 AM EDT MAGNESIUM Routine 11/15/2023 3:57 AM EDT BASIC METABOLIC PANEL Routine 11/15/2023 3:57 AM EDT POCT GLUCOSE Routine 11/15/2023 3:42 AM EDT POCT GLUCOSE Routine 11/15/2023 1:01 AM EDT POCT GLUCOSE Routine 11/15/2023 12:37 AM EDT POCT GLUCOSE Routine 11/14/2023 8:36 PM EDT POCT GLUCOSE Routine 11/14/2023 4:33 PM EDT POCT GLUCOSE Routine 11/14/2023 12:09 PM EDT POCT GLUCOSE Routine 11/14/2023 9:16 AM EDT POCT GLUCOSE Routine 11/14/2023 7:38 AM EDT DIFFERENTIAL, AUTOMATED Routine 11/14/2023 4:33 AM EDT HEMOGRAM Routine 11/14/2023 4:33 AM EDT CBC (WITH DIFF) Routine 11/14/2023 4:33 AM EDT MAGNESIUM Routine 11/14/2023 4:33 AM EDT BASIC METABOLIC PANEL Routine 11/14/2023 4:33 AM EDT POCT GLUCOSE Routine 11/14/2023 4:21 AM EDT POCT GLUCOSE Routine 11/14/2023 12:10 AM EDT POCT GLUCOSE Routine 11/13/2023 9:45 PM EDT POCT GLUCOSE Routine 11/13/2023 7:20 PM EDT POCT GLUCOSE Routine 11/13/2023 4:17 PM EDT POCT GLUCOSE Routine 11/13/2023 1:53 PM EDT POCT GLUCOSE Routine 11/13/2023 11:41 AM EDT POCT GLUCOSE Routine 11/13/2023 9:34 AM EDT POCT GLUCOSE Routine 11/13/2023 7:56 AM EDT POCT GLUCOSE Routine 11/13/2023 3:39 AM EDT POCT GLUCOSE Routine 11/13/2023 12:23 AM EDT DIFFERENTIAL, AUTOMATED Routine 11/13/2023 12:08 AM EDT HEMOGRAM Routine 11/13/2023 12:08 AM EDT MAGNESIUM Routine 11/13/2023 12:08 AM EDT BASIC METABOLIC PANEL Routine 11/13/2023 12:08 AM EDT CBC (WITH DIFF) Routine 11/13/2023 12:08 AM EDT POCT GLUCOSE Routine 11/12/2023 8:21 PM EDT POCT GLUCOSE Routine 11/12/2023 5:58 PM EDT POCT GLUCOSE Routine 11/12/2023 3:48 PM EDT POCT GLUCOSE Routine 11/12/2023 1:41 PM EDT POCT GLUCOSE Routine 11/12/2023 12:26 PM EDT POCT GLUCOSE Routine 11/12/2023 8:17 AM EDT POCT GLUCOSE Routine 11/12/2023 4:07 AM EDT DIFFERENTIAL, AUTOMATED Routine 11/12/2023 12:54 AM EDT HEMOGRAM Routine 11/12/2023 12:54 AM EDT CBC (WITH DIFF) Routine 11/12/2023 12:54 AM EDT MAGNESIUM Routine 11/12/2023 12:54 AM EDT BASIC METABOLIC PANEL Routine 11/12/2023 12:54 AM EDT POCT GLUCOSE Routine 11/12/2023 12:52 AM EDT POCT GLUCOSE Routine 11/11/2023 9:41 PM EDT POCT GLUCOSE Routine 11/11/2023 8:11 PM EDT POCT GLUCOSE Routine 11/11/2023 6:28 PM EDT POCT GLUCOSE Routine 11/11/2023 4:18 PM EDT POCT GLUCOSE Routine 11/11/2023 2:[address] ABDOMEN AND PELVIS WO CONTRAST STAT 11/11/2023 12:20 PM EDT POCT GLUCOSE Routine 11/11/2023 11:51 AM EDT POCT GLUCOSE Routine 11/11/2023 8:17 AM EDT SCAN DOC: TELEMETRY STRIPS 11/11/2023 6:57 AM EDT SHIGA TOXIN ASSAY Routine 11/11/2023 5:4 1 AM EDT CAMPYLOBACTER ANTIGEN Routine 11/11/2023 5:41 AM EDT STOOL CULTURE Routine 11/11/2023 5:41 AM EDT HC STOOL CULTURE Routine 11/11/2023 5:41 AM EDT DIFFERENTIAL, AUTOMATED Routine 11/11/2023 5:13 AM EDT HEMOGRAM Routine 11/11/2023 5:13 AM EDT CBC (WITH DIFF) Routine 11/11/2023 5:13 AM EDT POCT GLUCOSE Routine 11/11/2023 3:00 AM EDT MAGNESIUM Routine 11/11/2023 12:20 AM EDT BASIC METABOLIC PANEL Routine 11/11/2023 12:20 AM EDT POCT GLUCOSE Routine 11/11/2023 12:13 AM EDT POCT GLUCOSE Routine 11/10/2023 7:23 PM EDT POCT GLUCOSE Routine 11/10/2023 3:01 PM EDT POCT GLUCOSE Routine 11/10/2023 11:06 AM EDT OSMOLALITY, URINE, RANDOM Routine 11/10/2023 9:39 AM EDT SODIUM, URINE, RANDOM Routine 11/10/2023 9:39 AM EDT POCT GLUCOSE Routine 11/10/2023 7:33 AM EDT POCT GLUCOSE Routine 11/10/2023 4:08 AM EDT POCT GLUCOSE Routine 11/10/2023 12:18 AM EDT OSMOLALITY Routine 11/10/2023 12:00 AM EDT SCAN, PERIPHERAL BLOOD Routine 12:00 AM EDT DIFFERENTIAL, AUTOMATED Routine 11/10/2023 12:00 AM EDT HEMOGRAM Routine 11/10/2023 12:00 AM EDT CBC (WITH DIFF) Routine 11/10/2023 12:00 AM EDT MAGNESIUM Routine 11/10/2023 12:00 AM EDT BASIC METABOLIC PANEL Routine 11/10/2023 12:00 AM EDT FERRITIN Routine 11/10/2023 12:00 AM EDT FOLATE, SERUM Routine 11/10/2023 12:00 AM EDT VITAMIN B12 Routine 11/10/2023 12:00 AM EDT POCT GLUCOSE Routine 11/09/2023 7:36 PM EDT POCT GLUCOSE Routine 11/09/2023 4:53 PM EDT PATRICK, LEGS, MULTIPLE LEVELS Routine 11/09/2023 4:43 PM EDT Wound of right lower extremity, initial encounter POCT GLUCOSE Routine 11/09/2023 11:53 AM EDT POCT GLUCOSE Routine 11/09/2023 7:41 AM EDT SCAN DOC: TELEMETRY STRIPS 11/09/2023 6:46 AM EDT POCT GLUCOSE Routine 11/09/2023 4:07 AM EDT DIFFERENTIAL, AUTOMATED Routine 11/09/2023 12:00 AM EDT HEMOGRAM Routine 11/09/2023 12:00 AM EDT CBC (WITH DIFF) Routine 11/09/2023 12:00 AM EDT MAGNESIUM Routine 11/09/2023 12:00 AM EDT BASIC METABOLIC PANEL Routine 11/09/2023 12:00 AM EDT HEPATIC FUNCTION PANEL Routine 12:00 AM EDT POCT GLUCOSE Routine 11/08/2023 10:06 PM EDT POCT GLUCOSE Routine 11/08/2023 4:06 PM EDT POCT GLUCOSE Routine 11/08/2023 12:12 PM EDT POCT GLUCOSE Routine 11/08/2023 8:13 AM EDT POCT GLUCOSE Routine 11/08/2023 3:51 AM EDT POCT GLUCOSE Routine 11/08/2023 12:18 AM EDT DIFFERENTIAL, AUTOMATED Routine 11/08/2023 12:18 AM EDT HEMOGRAM Routine 11/08/2023 12:18 AM EDT CBC (WITH DIFF) Routine 11/08/2023 12:18 AM EDT MAGNESIUM Routine 11/08/2023 12:18 AM EDT BASIC METABOLIC PANEL Routine 11/08/2023 12:18 AM EDT HEMOGLOBIN A1C Routine 11/05/2023 6:00 AM EDT from Last 3 Months or Most Recently Relevant to Health Maintenance Results * Intrinsic Factor Blocking Antibody (11/23/2023 12:18 PM EDT) [facility] IF Ab Negative Negative [facility] Comment: Test Performed by: [facility] [address] [place] [address] Electrode Cleaning Machine Operator: Mark Cooney M.D. Ph.D.; CLIA# [id number] IF Ab Comment SEE COMMENTS [facility] Comment: Intrinsic Factor Blocking Antibody (IFBA) antibodies are absent in approximately 50% of individuals with pernicious anemia (PA). The absence of elevated IFBA antibodies does not rule out the presence of PA; further studies such as gastrin testing may be indicated. Test Performed by: [facility] [address] [place] [address] Electrode Cleaning Machine Operator: Mark Cooney M.D. Ph.D.; CLIA# [id number] Blood 11/23/2023 12:1 8 PM EDT 11/23/2023 12:48 PM EDT Nicolás Rodriguez MD LAB SEND OUT ORDERAB LES Performing Organization Address [facility] Co de Phone Number [facility] [place] [address] * POCT Glucose (11/23/2023 11:18 AM EDT) Only the most recent of101 resultswithin the time period is included. Glucose, POC 196 65 - 199 mg/dL [facility] Comment: Supplemental ranges: <140 mg/dL before meals <180 mg/dL all other times of the day Blood 11/23/2023 11:1 8 AM EDT 11/23/2023 11:18 AM EDT Nicolás Rodriguez MD POINT OF CARE TEST O RDERABLES Performing Organization Address City/[facility] Co de Phone Number [facility] [place] [address] * (ABNORMAL) Hemogram (11/22/2023 4:25 AM EDT) Only the most recent of15 resultswithin the time period is included. White Blood Cell 8.7 4.0 - 9.5 x10(3)/mc L [facility] Red Blood Cell 4.16 4.00 - 5.21 x10(6)/mc L [facility] Hemoglobin 9.6(L) 11.7 - 15.5 g/dL [facility] Hematocrit 33.7(L) 35.7 - 45.8 % [facility] Mean Cell Volume 81.0(L) 82.6 - 94.4 fL [facility] Mean Cell Hemoglobin 23.1(L) 27.1 - 32.0 pg [facility] Mean Cell Hemoglobin Concentration 28.5(L) 31.7 - 35.0 g/dL [facility] Platelet 697(H) 145 - 357 x10(3)/mc L [facility] RDW Standard Deviation 55.0(H) 37.0 - 46.0 fL [facility] RDW coefficient of variation 18.6(H) 11.5 - 14.1 % [facility] Mean Platelet Volume 10.1 7.6 - 12.9 fL [facility] NRBC% auto 0.0 % [facility] NRBC Absolute 0.000 0.000 - 0.000 x10(3)/ L [facility] Blood 11/22/2023 4:25 AM EDT 11/22/2023 5:02 AM EDT Narrative Resulting Agency Comment Spec In Lab Francis Roberts MD HEMATOLOGY ORDERABL ES [facility] [place] [address] * (ABNORMAL) Differential, Automated (11/22/2023 4:25 AM EDT) Only the most recent of15 resultswithin the time period is included. Neutrophil % 61.8 % [facility] Neutrophil Absolute 5.37 1.70 - 6.10 x10(3)/mc L [facility] Lymph % 22.4 % [facility] Lymphocytes Abs 2.0 0.9 - 3.2 x10(3)/mc L [facility] Monocyte % 11.5 % [facility] Monocyte Abs 1.0(H) 0.3 - 0.9 x10(3)/ L [facility] Eos % 2.6 % [facility] Eosinophils Abs 0.2 0.0 - 0.4 x10(3)/[facility] Basophil % 0.9 % [facility] Baso Absolute 0.1 0.0 - 0.1 x10(3)/[facility] Immature Gran % 0.80 % [facility] Comment: Immature granulocytes(IG's)percentage and absolute count will include metamyelocytes, myelocytes, and promyelocytes. Blood smears from CBCs yielding IG's will be scanned manually for concordance. If this scan disagrees with the automated IG or if promyelocytes are noted, a manual differential will be performed. Immature Gran Absolute 0.07(H) 0.00 - 0.04 x10(3)/ L [facility] Blood 11/22/2023 4:25 AM EDT 11/22/2023 5:02 AM EDT Narrative Resulting Agency Comment Spec In Lab Francis Roberts MD HEMATOLOGY ORDERABL ES Performing Organization Address City/[facility]/ZIP Co de Phone Number [facility] [place] [address] * Magnesium (11/22/2023 4:25 AM EDT) Only the most recent of15 resultswithin the time period is included. Magnesium 0.75 0.69 - 1.07 mmol/L [facility] Blood 11/22/2023 4:25 AM EDT 11/22/2023 5:02 AM EDT Narrative Resulting Agency Comment Spec In Lab Francis Roberts MD CHEMISTRY ORDERABLE S Performing Organization Address City/[facility]/ZIP Co de Phone Number [facility] [place] [address] * (ABNORMAL) Basic Metabolic Panel (non-fasting) (11/22/2023 4:25 AM EDT) Only the most recent of15 resultswithin the time period is included. Glucose 59(L) 65 - 199 mg/dL [facility] Comment:Diabetes: >=200 mg/d L plus symptoms Blood Urea Nitrogen 38(H) 8 - 18 mg/dL [facility] Creatinine 1.02 0.70 - 1.20 mg/dL [facility] Sodium 137 135 - 145 mmol/L [facility] Potassium 4.4 3.5 - 5.0 mmol/L [facility] Comment: Please note: ??Patients with WBC >100,000 may have falsely elevated Potassium levels. ??For accurate Potassium quantification in these patients send serum separator tube (gold top) for subsequent determinations. ??Contact the Clinical Chemistry Laboratory if there are any questions. Chloride 104 98 - 107 mmol/L [facility] Carbon Dioxide 22 22 - 31 mmol/L [facility] Anion Gap 11 5 - 15 mmol/L [facility] Calcium 9.2 8.5 - 10.5 mg/dL [facility] Est Glomerular Filtration Rate 57(L) >=60 mL/min/1. 73 m?? [facility] Comment: This patient's estimated GFR was calculated using the 2020 CKD-EPI equation. The estimated GFR can vary from the measured GFR by up to 30% in the absence of rapidly changing kidney function. Assessment of the estimated GFR is not appropriate when creatinine concentrations are rapidly changing. For clinical situations in which a more precise estimate of GFR is necessary, consider alternative methods of GFR estimation such as a 24-hour urine creatinine clearance. Assignment of CKD stage 1-5 for patients with an eGFR near the transition point between stages may be based on clinical assessment of muscle mass and symptoms in addition to eGFR. Blood 11/22/2023 4:25 AM EDT 11/22/2023 5:02 AM EDT Narrative Resulting Agency Comment Spec In Lab Francis Roberts MD CHEMISTRY ORDERABLE S Performing Organization Address [facility]/ZIP Co de Phone Number [facility] [place] [address] * EKG 12 Lead (11/15/2023 2:56 PM EDT) Ventricular rate 100 BPM MUSE SYSTEM QRS Duration 74 ms MUSE SYSTEM Q-T Interval 352 ms MUSE SYSTEM QTC Calculated (Bezet) 454 ms MUSE SYSTEM Calculated R [place] 34 degrees MUSE SYSTEM Calculated T [place] 8 degrees MUSE SYSTEM INTERPRETATION Atrial fibrillation Low voltage QRS Abnormal ECG When compared with ECG of 05-NOV-2023 03:10, No significant change was found Confirmed by MD Justus, Rafat ([id number]) on 12/18/2023 11:15:26 AM MUSE SYSTEM 11/15/2023 2:56 PM EDT 12/18/2023 11:15 AM EDT Idania Matthews MD ECG ORDERABLES Performing Organization Address [facility] Co de Phone Number MUSE SYSTEM * CT Abdomen & Pelvis wo Contrast (11/11/2023 12:20 PM EDT) Pathologist [facility] WORKSTATION ID [id number] RAD Anatomical Region Laterality Modality Abdomen, Pelvis Computed Tomogra phy Impressions 11/11/2023 1:06 PM EDT Appropriate position of the suprapubic catheter, however, persistent moderate bladder distention. Possible catheter obstruction/clog; correlate with ability to flush catheter. The overall appearance is similar to 202 when the catheter was in appropriate position and the bladder was distended. Thank you for letting us participate in the care of this patient. ??If you are a health care provider and have any questions regarding this report, please contact the number below. ??For patients who have questions please contact the health disabilities caregiver that requested your imaging first. ? Electronically signed by: SUNSHINE ALEGRE MD, [facility] ([phone]), at 11/11/2023 1:06 PM Narrative 11/11/2023 1:06 PM EDT EXAMINATION: CT ABDOMEN AND PELVIS WO CONTRAST CLINICAL HISTORY: Low urine outpatient from suprapubic catheter, concern or obstruction TECHNIQUE: Helical CT of the abdomen and pelvis without intravenous contrast. Oral contrast was not administered. Multiplanar reformatted images were generated. COMPARISON: CT abdomen pelvis 07/30/2021. FINDINGS: The absence of intravenous contrast limits the evaluation of solid viscera and vasculature. Lower chest: Atelectasis at the lung bases. Mild coronary artery calcification. Liver: Normal size and attenuation. Bile ducts: Nondilated. Gallbladder: Small dependent calculus versus trace dense sludge. Normal caliber wall. Pancreas: Normal attenuation without ductal dilatation. Spleen: Normal size. Low-density lesion in the anterior spleen may represent a cyst or hemangioma. Adrenals: Normal. Right kidney/ureter: No collecting system dilation or calculi. A few cysts are present. Left kidney/ureter: No collecting system dilation or calculi. Urinary Bladder: No bladder or proximal urethral calculi. Despite the presence of a suprapubic catheter with balloon inflated within the bladder lumen, there remains moderate bladder distention with urine. Limited assessment of the bladder wall related to streak artifact. Visualized aspects are normal. Vasculature: No abdominal aortic aneurysm. Lymph Nodes: No enlarged lymph nodes. Bowel: Nondilated small and large bowel. Normal appendix. Peritoneum and retroperitoneum: No free fluid or loculated fluid collection. No pneumoperitoneum. No mesenteric inflammation. Abdominal wall: Nodular opacity in the anterior abdominal wall, possibly a medication injection site. Reproductive organs: Normal uterus. No adnexal mass. Osseous structures: Partially imaged right hip total arthroplasty with well aligned components. Moderate compression deformity of L1 vertebral body is unchanged. Grade 1 anterolisthesis at L4-L5 related to facet arthropathy. Procedure Note Sunshine Alegre MD - 11/11/2023 EXAMINATION: CT ABDOMEN AND PELVIS WO CONTRAST CLINICAL HISTORY: Low urine outpatient from suprapubic catheter, concernor obstruction TECHNIQUE: Helical CT of the abdomen and pelvis without intravenouscontrast. Oral contrast was not administered. Multiplanar reformatted images were generated. COMPARISON: CT abdomen pelvis 07/30/2021. FINDINGS: The absence of intravenous contrast limits the evaluation of solid visceraand vasculature. Lower chest: Atelectasis at the lung bases. Mild coronary arterycalcification. Liver: Normal size and attenuation. Bile ducts: Nondilated. Gallbladder: Small dependent calculus versus trace dense sludge. Normalcaliber wall. Pancreas: Normal attenuation without ductal dilatation. Spleen: Normal size. Low-density lesion in the anterior spleen mayrepresent a cyst or hemangioma. Adrenals: Normal. Right kidney/ureter: No collecting system dilation or calculi. A few cystsare present. Left kidney/ureter: No collecting system dilation or calculi. Urinary Bladder: No bladder or proximal urethral calculi. Despite thepresence of a suprapubic catheter with balloon inflated within the bladder lumen,there remains moderate bladder distention with urine. Limited assessment ofthe bladder wall related to streak artifact. Visualized aspects are normal. Vasculature: No abdominal aortic aneurysm. Lymph Nodes: No enlarged lymph nodes. Bowel: Nondilated small and large bowel. Normal appendix. Peritoneum and retroperitoneum: No free fluid or loculated fluidcollection. No pneumoperitoneum. No mesenteric inflammation. Abdominal wall: Nodular opacity in the anterior abdominal wall, possiblya medication injection site. Reproductive organs: Normal uterus. No adnexal mass. Osseous structures: Partially imaged right hip total arthroplasty withwell aligned components. Moderate compression deformity of L1 vertebral bodyis unchanged. Grade 1 anterolisthesis at L4-L5 related to facetarthropathy. IMPRESSION Appropriate position of the suprapubic catheter, however, persistentmoderate bladder distention. Possible catheter obstruction/clog; correlate withability to flush catheter. The overall appearance is similar to 2021 when thecatheter was in appropriate position and the bladder was distended. Thank you for letting us participate in the care of this patient. If youare a health care provider and have any questions regarding this report,please contact the number below. For patients who have questions please contactthe health disabilities caregiver that requested your imaging first. Electronically signed by: SUNSHINE ALEGRE MD, [facility]([phone]), at 11/11/2023 1:06 PM Francis Roberts MD IMG CT ORDERABLES * Scan Doc: Telemetry Strips (11/11/2023 6:57 AM EDT) Only the most recent of2 resultswithin the time period is included. Narrative 11/11/2023 6:57 AM EDT Ordered by an unspecified provider. Scanning Provider MEDIA MGR SCAN EXT O RDR/RSLT * Campylobacter Antigen (11/11/2023 5:41 AM EDT) Campylobacter Ag Immunoassay Negative for Campylobacter Antigen [facility] Stool 11/11/2023 5:41 AM EDT 11/11/2023 8:06 AM EDT Narrative Resulting Agency Comment Spec In Lab Tad Greenwood MD MICROBIOLOGY - GENE [employer] ORDERABLES Performing Organization Address City/[facility]/ZIP Co de Phone Number [facility] [place] [address] * Shiga Toxin Detection (11/11/2023 5:41 AM EDT) Shiga Toxin Assay Test not performed due to no enteric growth. [facility] Stool 11/11/2023 5:41 AM EDT 11/11/2023 8:06 AM EDT Narrative Resulting Agency Comment Spec In Lab Tad Greenwood MD MICROBIOLOGY - GENE RAL ORDERABLES [facility] [place] [address] * Stool culture (11/11/2023 5:41 AM EDT) Pathologist [facility] Stool Culture No enteric pathogens isolated Reduced normal enteric kb isolated [facility] Stool 11/11/2023 5:41 AM EDT 11/11/2023 8:06 AM EDT Narrative Resulting Agency Comment Spec In Lab Tad Greenwood MD MICROBIOLOGY - GENE RAL ORDERABLES [facility] [place] [address] * Sodium, urine, random (11/10/2023 9:39 AM EDT) Sodium, Urine 108 mmol/L [facility] Urine 11/10/2023 9:39 AM EDT 11/10/2023 9:47 AM EDT Narrative Resulting Agency Comment Spec In Lab Francis Roberts MD URINE ORDERABLES Performing Organization Address [facility]/ZIP Co de Phone Number [facility] [place] [address] * Osmolality, urine, random (11/10/2023 9:39 AM EDT) Osmolality, Urine 454 50 - 1,200 mOsm/kg [facility] Urine Urine / Unknown 11/10/2023 9 :39 AM EDT 11/10/2023 10:09 AM EDT Narrative Resulting Agency Comment Spec In Lab Francis Roberts MD URINE ORDERABLES Performing Organization Address City/[facility]/ZIP Co de Phone Number [facility] [place] [address] * Scan, Peripheral Blood (11/10/2023 12:00 AM EDT) Plat estimate Increased [facility] RBC Morphology Abnormal [facility] Microcyte 1-5 /HPF [facility] Hypochromia Slight [facility] Polychromasia Present >5/HPF [facility] Ovalocytes 1-5 /HPF [facility] Tear Cell 1-5 /HPF [facility] Living[place] Cells 1-5 /HPF [facility] Acanthocytes 1-5 /HPF [facility] Stippled RBC Present >1/HPF [facility] Blood 11/10/2023 11/10/2023 12: 30 AM EDT Narrative Resulting Agency Comment Spec In Lab Francis Roberts MD HEMATOLOGY ORDERABL ES [facility] [place] [address] * Osmolality (11/10/2023 12:00 AM EDT) Osmolality 287 275 - 295 mOsm/kg [facility] Blood Venous Draw / Unknown 11/10/2023 11/10/2023 12:37 AM EDT Narrative Resulting Agency Comment Spec In Lab Francis Roberts MD CHEMISTRY ORDERABLE S Performing Organization Address [facility] Co de Phone Number [facility] [place] [address] * Folate, serum (11/10/2023 12:00 AM EDT) Folate 10.2 4.8 - 24.2 ng/mL [facility] Blood 11/10/2023 11/10/2023 12: 30 AM EDT Narrative Resulting Agency Comment Spec In Lab Francis Roberts MD CHEMISTRY ORDERABLE S Performing Organization Address [facility]/ZIP Co de Phone Number [facility] [place] [address] * Ferritin (11/10/2023 12:00 AM EDT) Ferritin 32 11 - 328 ng/mL [facility] Comment: Please note that as of 05/27/2023, the reference intervals for Ferritin have been updated. Blood 11/10/2023 11/10/2023 12: 30 AM EDT Narrative Resulting Agency Comment Spec In Lab Francis Roberts MD CHEMISTRY ORDERABLE S [facility] [place] [address] * (ABNORMAL) Vitamin B12 (11/10/2023 12:00 AM EDT) [facility] Vitamin B12 200(L) 232 - 1,245 pg/mL [facility] Blood 11/10/2023 11/10/2023 12: 30 AM EDT Narrative Resulting Agency Comment Spec In Lab Francis Roberts MD CHEMISTRY ORDERABLE S Performing Organization Address [facility] Co de Phone Number [facility] [place] [address] * PATRICK, legs, multiple levels (11/09/2023 4:43 PM EDT) [facility] VB Text Report Department: Vascular Surgery Lab Patient: [id number] (DHAVAL YEE) CPT: 45963 Referring Physician: CESAR GEORGES ?? Phone: Indications: Chronic LE wound ? perfusion Diabetes mellitus: Yes Findings: Right ?Pressure (mm Hg) ??Waveform ?TBI ?? Brachial Artery ?134 ? Dorsalis Pedis (Ankle) Artery ?>254 ?Triphasic ? Posterior Tibial (Ankle) Artery ??>254 ?Triphasic ? Great Toe ?113 ?0.84 ?? Left ? Pressure (mm Hg) ??Waveform ?TBI ?? Brachial Artery ?IV ? Dorsalis Pedis (Ankle) Artery ?>254 ?Triphasic ? Posterior Tibial (Ankle) Artery ??>254 ?Triphasic ? Great Toe ?111 ?0.83 ?? Interpretation: RIGHT: No significant lower extremity arterial occlusive disease identifiable at rest. Normal ankle Doppler waveforms. No significant change compared to previous exam on 02/28/2021. LEFT: No significant lower extremity arterial occlusive disease identifiable at rest. Normal ankle Doppler waveforms. No significant change compared to previous exam on 02/28/2021. Comment: The ankle pressures are falsely elevated compared to the Doppler waveforms, most likely due to calcified tibial arteries. Thus, disease severity is based on Doppler waveforms and toe pressures. Previous ABIs with change from previous value: Date ?RIGHT DP ?? RIGHT PT ?? RT GR TOE ??RT Sec TOE ??1.21 ? 1.29 ? 0.75 ? ---- Current ? ---- ? ---- ? 0.84(+.09) ---- Date ?LEFT DP ?LEFT PT ?LT GR TOE LT Sec TOE ??1.21 ? 1.22 ? 0.76 ? ---- Current ? ---- ? ---- ? 0.83(+.07) ---- Electronically Signed by: NANCY PORTILLO on 2023-11-12 10:54:55 AM [facility] VB Text Report End of Report [facility] 11/09/2023 4:43 PM EDT Cesar Georges MD VASCULAR ORDERABLES Performing Organization Address City/[facility]/ZIP Co de Phone Number [facility] * (ABNORMAL) Hepatic Function Panel (11/09/2023 12:00 AM EDT) Protein, Total 6.2 6.1 - 8.0 g/dL [facility] Albumin 3.1(L) 3.2 - 5.2 g/dL [facility] Aspartate Aminotransferase 20 0 - 30 unit/L [facility] Alanine Aminotransferase 47(H) 0 - 30 unit/L [facility] Alkaline Phosphatase 76 35 - 105 unit/L [facility] Bilirubin, Total <0.2(L) 0.2 - 1.3 mg/dL [facility] Bilirubin, Direct <0.1 0.0 - 0.3 mg/dL [facility] Blood 11/09/2023 11/09/2023 12: 19 AM EDT Narrative Resulting Agency Comment Spec In Lab Francis Roberts MD CHEMISTRY ORDERABLE S Performing Organization Address City/[facility] Co de Phone Number [facility] [place] [address] * (ABNORMAL) Hemoglobin A1c (11/05/2023 6:00 AM EDT) Hemoglobin A1c 13.1(H) 4.3 - 5.6 % [facility] Comment: Reference Range: 4.3 - 5.6% 5.7 - 6.4% - Increased Risk of Developing Diabetes Mellitus >= 6.5% - Consistent with diagnosis of Diabetes Mellitus In the absence of hyperglycemia (i.e. plasma glucose > 200 mg/dL) or classic symptoms of hyperglycemia a repeat measurement of HbA1c should be performed on a separate sample to confirm the diagnosis. Diagnosis and Classification of Diabetes Mellitus, Diabetes Care 2013; 36: Suppl. 1, S47-59 Estimated Average Glucose See note mg/dL [facility] Comment: Estimated Average Glucose not appropriate for patients over 70 years of age. 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 Yes PRE Arrest Intubation Permitted? Yes * Do NOT Attempt CPR - Inpatient Date Activated Date Inactivated Comments 11/05/2023 3:29 AM 11/05/2023 3:33 AM Question Answer Comments Code Status decision made by: Patient Independent of Code Status d ecision, are there any PRE Arrest limitations (Intubation, Pressors, Cardioversion / Pacing, etc)? Yes PRE Arrest Intubation Permitted? Yes * Full Code Date Activated Date Inactivated Comments 01/08/2018 12:56 AM 01/11/2018 4:40 PM Question Answer Comments Does patient have capacity to make decision: Yes * Full Code Date Activated Date Inactivated Comments 03/29/2014 3:41 AM 03/30/2014 5:27 PM Question Answer Comments Order Status: Initial Order Does patient have decision m aking capacity? Yes, Order is based on Patients wishes. Care Teams Treatment Coordinator Relationship Specialty Start Date End Date Dean Camilo PA [address] [place] [address] PCP - General Internal Medicine 02/01/21
--- OUTSIDE RECORDS SUMMARY | 2024-02-08 15:31 | XMS_ITS | Encounter Summary ---
[place] [address] Care Team Providers Care Mds Rn Name Role Phone Dean Camilo Primary Care Provider [phone] Reason for Visit * Reason Comments Wound Check Encounter Details Date Type Department Care Team (Late st Contact Info) Description 02/28/2021 2:30 PM EDT Office [place] [address] Carol Langford APRN [facility] [place] [address] Type 2 diabetes mellitus with hyperglycemia, with long-term current use of insulin; Diabetic ulcer of toe of right foot associated with type 2 diabetes mellitus, with fat layer exposed; Diabetic peripheral neuropathy Social History Tobacco Use Types Packs/Day Years Used Date Smoking Tobacco: Former Cigarettes Q uit: 06/22/1979 Smokeless Tobacco: Never Comments:per phone call 01/02 Alcohol Use Standard Drinks/Week Comments Yes 0 (1 standard drink = 0.6 oz pur e alcohol) 1 drink every 3-4 months Sex and Gender Information Value Date Recorded Sex Assigned at Not on file Gender Identity Not on file Sexual Orientation Not on file documented as of this [...] - documented in this encounter Patient Instructions * Patient Instructions* Carol Langford APRN - 02/28/2021 2:30 PM [...] drainage (thick yellow/green drainage) Malodor Contact the [facility] with any above symptoms Thursday- Thursday 8:00AM-4:30PM ([phone]). If weekends / holidays / evenings, please report to the Emergency Department. documented in this encounter Progress Notes * Carol Langford APRN - 02/28/2021 2:30 PM EDT Images from the original note were not included. [facility] Progress Note Chief Complaint: Hope Busby is a 70 y.o. female returns for follow up of right toe ulcer. HPI: Patient was initially referred by Roni Vargas for evaluation of right toe ulcer. She reportsabout mid January that she was wearing a foot brace which caused a wound to her right 5th toe therewas bone sticking out. She reports [facility] has been covering it with dressing from a shinny package. She reports the wound was more red, but did improve after soaking it. ?? The medical history and recent labs were reviewed prior to the patient's appointment. ?? Home Care: [facility] ROS: Negative for constitutional symptoms [...] to and including subcutaneous tissue < 20 sq cm. Bleeding: none Dsg: applied adhesive dressing to the right fifth toe Left fifth toe - iodosorb, foam and tape Assessment/Plan: Hope Busby is a 70 y.o. female with healed ulcer on the Right fifth toe andnew ulcer on the left fifth toe. No sign of local infection. Will protect the fragile epithelial onthe right toe with an adhesive dressing and initiate treatment on the left toe with the iodosorb, foam and tape. Follow up: weekly Wound care instructions: [...] drainage (thick yellow/green drainage) Malodor Contact the [facility] with any above symptoms Thursday- Thursday 8:00AM-4:30PM ([phone]). If weekends / holidays / evenings, please report to the Emergency Department. documented in this encounter Plan of Treatment Not on file documented as of this encounter Visit Diagnoses Diagnosis Type 2 diabetes mellitus with hyperglycemia, with long-term current use of insulin Diabetic ulcer of toe of right foot associated with type 2 diabetes mellitus, with fat layer exposed Diabetic peripheral neuropathy Type II or unspecified type diabetes mellitus with neurological manifestations, not stated as uncontrolled documented in this encounter Care Teams Mds Rn Relationship Specialty Start Date End Date Dean Camilo PA [address] [place] [address] PCP - General Internal Medicine 02/01/21 documented as of this encounter
--- OUTSIDE RECORDS SUMMARY | 2024-02-08 15:31 | XMS_ITS | Encounter Summary ---
Author Organization [facility] Address [facility] [place] [address] Care Team Providers Care Subway Repair Supervisor Name Role Phone Dean Camilo Primary Care Provider Reason for Visit * Reason Comments Medication Refill Encounter Details Date Type Department Care Team (Late st Contact Info) Description 05/09/2018 Refill Cardiology at [address] [phone] Myra Cobb APRN [facility] [place] [address] Medication Refill Social History Tobacco Use Types Packs/Day Years [...] on filedocumented in this encounter Care Teams Subway Repair Supervisor Relationship Specialty Start Date End Date Dean Camilo PA Kirti [address] [place] [id number] PCP - General Internal Medicine 02/01/21 documented as of this encounter
--- OUTSIDE RECORDS SUMMARY | 2024-02-08 15:31 | XMS_ITS | Encounter Summary ---
[place] [address] Care Team Providers Care Dock Pumper Name Role Phone Dean Camilo Primary Care Provider [phone] Reason for Referral * Home Health Care (Routine) - Authorized Specialty Diagnoses / Procedures Referred By Rommel bhat Referred To Contact Diagnoses Diabetic ketoacidosis with coma associated with other specified diabetes mellitus Nicolás Kothari MD [facility] [place] [address] Referral ID Status Reason Start Date Expiration Date Visits Requested Visits Authorized [id number] Authorized Consult, Test & Treat 11/23/2023 05/21/2024 999 999 Reason for Visit * Auth/Cert (Routine) Specialty Diagnoses / Procedures Referred By Rommel bhat Referred To Contact Diagnoses DKA (diabetic ketoacidosis) Bradycardia Procedures ER CHEMOI Kiko Che MD [facility] [place] [address] [facility] Referral ID Status Reason Start Date Expiration Date Visits Re quested Visits Authorized [id number] 1 1 Encounter Details Date Type Department Care Team (Late st Contact Info) Description 11/05/2023 2:58 AM EDT - 11/23/2023 2:00 PM EDT Hospital Encounter Surgical Unit Level 4 [place] [address] Kiko Che MD [facility] [place] [address] [place] [address] [place] [address] [place] [address] [place] [address] [place]ás [place] [address] Persistent atrial fibrillation; Wound of right lower extremity, initial encounter; Chest discomfort; Hyperlipidemia, unspecified hyperlipidemia type; Atrial fibrillation; Diabetic ketoacidosis with coma associated with other specified diabetes mellitus Discharge Disposition: Home with VNA Social History Tobacco Use Types Packs/Day Years Used Date Smoking Tobacco: Former Cigarettes Q uit: 06/22/1979 Smokeless Tobacco: Never Comments:per phone call 01/02 Alcohol Use Standard Drinks/Week Comments Not Currently 0 (1 standard drink = 0.6 oz pur e alcohol) 1 drink every 3-4 months [facility] Utilities Answer Date Recorded In the past 12 months has [employer], gas, oil, or water company threatened to shut off services in your [...] place to sleep or slept in a correction (including now)? No 11/05/2023 DH IPV Inpatient [...] PM EDT Height 168.9 cm (5' 6.5) 11/05/2023 2:59 AM EDT Body Mass Index 30.21 11/11/2023 10:46 AM EDT documented in this encounter Discharge Summaries * Nicolás Kothari MD - 11/23/2023 12:43 PM EDT Discharge Summary Patient Name: Hope Yee Patient Age: 73 y.o. Language: Algerian Race: White Ethnicity: Not nor Admit date: 11/05/2023 Discharge date and time: 11/23/2023 12:42 PM Attending Physician: Nicolás Rodriguez MD Discharge Physician: Nicolás Kothari MD Follow-up Recommendations for Providers: PCP -Consider referral back to [facility] endocrinology if patient's diabetes is still not well-managed -Please restart Farxiga and Trulicity at time of PCP F/U, and consider increase dose of metformin -DKA thought to be due to medication noncompliance, and dietary excess (daughter gives an example of patient eating a whole tub of ice cream without coverage) -B12 deficiency identified, patient started on oral supplementation, intrinsic factor pending at time of discharge. If patient were identified to have pernicious anemia, will need injectable B12 -Please note that lisinopril and diltiazem were discontinued, dosage of metoprolol increased -Patient likely does need assistance in the future, and family has started looking for assisted living facilities. Inpatient Provider Contact Information: For questions regarding this document or issues relating to this hospitalization on the Medical Service, please contact your inpatient physician through the [facility] Scrap Handler . Issues afterhours and on weekends will be handled by the Hospitalist staff on-call. Discharge Diagnoses (Hospital Problems) and Secondary Diagnoses (Chronic Problems): Active Hospital Problems Diagnosis DKA (diabetic ketoacidosis) Permanent atrial fibrillation Resolved Hospital Problems No resolved problems to display. Active Non-Hospital Problems Diagnosis Syncope Symptomatic bradycardia Diabetes mellitus Morbid obesity Diabetic ulcer of toe of right foot associated with type 2 diabetes mellitus, with fat layer exposed Seronegative rheumatoid arthritis Heart murmur Gastroesophageal reflux Pseudophakia, both eyes Diabetic peripheral neuropathy Hypertension, essential, benign Hyperlipidemia SVT (supraventricular tachycardia) Gait instability Seronegative arthritis Osteoarthrosis, unspecified whether generalized or localized, pelvic region and thigh Osteoarthrosis, unspecified whether generalized or localized, lower leg Osteoarthrosis, unspecified whether generalized or localized, ankle and foot Nevus History of malignant melanoma History of basal cell carcinoma Personal history of malignant melanoma Rosacea Basal cell carcinoma of back Malignant melanoma History of Presentation: Per HPI, Hope Yee is a 73 y.o. female with PMH of HTN, atrial fibrillation on rivaroxaban,poorly-controlled T2DM, CKD, chronic indwelling suprapubic catheter, and prior TIA presenting in transfer from [facility] with bradycardia, hypotension, and hyperglycemia. Hope reports severe diarrhea that started about three weeks ago. It started when her Trulicity was on backorder, so she was started on an oral antihyperglycemic (unclear from chart review which this is; she is listed as filling Trulicity, Jardiance, and metformin). She has has decreased PO intake over this time as well. Then yesterday, she was making dinner for herself and her parrot, Echo, when she started to feel out of it. She also had some nausea and chest pain over this time, promptingher to call EMS. When EMS arrived patient noted to be bradycardic in the 30s and hypotensive blood glucose was too high to be read. Patient was given 0.5 mg of atropine without resolution of bradycardia. On arrival to the [facility] ED, patient noted to be hypothermic with a temperature of 35.3 heart rate 44, respiratory rate 18 O2 sat of 95% on room air, blood pressure 91/37. Initial labs were significantfor WBC 11.5, H&H 9.7/33.8, sodium 129, potassium 6.8, CO2 18, anion gap 14 creatinine 2, BUN 38, blood glucose 696, AST 130, ALT 77 and troponin was normal. Patient received dose of calcium gluconate and 10 units of IV insulin 3 units of albuterol nebulizers for her hyperkalemia. A transvenouspacer was placed via Cordis but team was unable to advance past the medial aspect of the tricuspid valve. CXR was notable for pulmonary vascular congestion. Patient also received 2 g of IV ceftriaxone for suspected UTI. [facility] cardiology was consulted who reached out to critical care services. While in the ED patient received a total of 2 L of IV crystalloid fluid boluses but was not started on a insulin infusion. Upon arrival to the MICU, her HR was in the 60s, transvenous pacer wire in place via Cordis. Home metoprolol and diltiazem were held. Glucose was in the 500s, so she was started on an insulin drip, which has brought sugars back down to the 100s. Insulin gtt stopped the afternoon of 11/04. Labs were notable for Na in the 130s, K 6.2->5.3, bicarb 116, Cr 1.4 -> 1.13. She has been eating PO meals. Hope reported feeling much better. No longer having diarrhea, now feeling a bit constipated. No nausea, vomiting, or abdominal pain. She remains in atrial fibrillation with HR in the 90s-100s. At home, Hope says that her blood sugars range anywhere from 100-600. Last A1C was 13.9. She has had 8-9 readings this month as high as 600. She says that she misses doses of her diabetes medications about twice per week. She does check her sugars regularly. Diabetes management team has been consulted while inpatient. She lives alone in [facility]. She has VNA come on Mondays and Fridays for her leg wounds and suprapubic catheter, which was last changed earlier this month. She thinks she did have a fever this week; unclear if she checked her temperature. No hematuria or other color changes to her urine. She thinks that the volume has been her usual amount. Hope quit smoking and drinking over 35 years ago. Hospital Course: #Bradycardia - resolved #Atrial fibrillation # Elevated BNP #Hx of tachybrady syndrome HR in the 30s-40s at [facility], meds were held and temporary pacing wire was placed. HR normalized to 90s-100s after hyperglycemia tx. Temp pacing wire removed 11/04. Bradycardia was likely the result of accumulation of beta blockade and calcium channel blockade in the setting of a prerenal MELVA. Beta-blocking medications were slowly restarted, with metoprolol titrated to 300mg metoprolol succinate XL QD. Diltiazem was held and not restarted. Anticoagulated on home dose of 20mg rivaroxaban nightly. No further episodes of bradycardia on telemetry. Cardiology was consulted for management of recurrent symptomatic bradycardia, potentially in the context of tachybrady symptom, and recommended against permanent pacemaker at this time. #Hyperglycemia #Probable HHS #Poorly-controlled T2DM Glucose in the 500s-700s at presentation, more likely HHS than DKA due to normal AG and no ketones.Last A1C 13.1. Insulin gtt started then stopped afternoon of 11/04, restarted in evening then stopped on 11/05 morning. This episode seems to have been precipitated by both a course of diarrhea due to a new medication along with missing multiple doses of her medications per week. Additionally, in discussion with daughter, it appears that medication noncompliance and dietary indiscretion could be atplay. Patient also does not easily share these details. Patient's oral agents were stopped and in collaboration with the diabetes management team, she was discharged on X units glargine, 1:5mg carb ratio for each meal and snack, and 1:10>140 correctionfactor. Diabetes team advised against restarting an SGLT-2 inhibitor, as those would put patient athigher risk of DKA. Patient's diabetes medications are largely unchanged on discharge. Discussed the importance of compliance with medications and dietary control of diabetes. Consider referral back to [facility] endocrinology if patient's diabetes is still not well-managed. Please restart Agatha and Benjamin at time of PCP F/U #B12 deficiency Intrinsic factor still pending at time of discharge. B12 level of 200. Patient started on oral repletion, but if patient has positive intrinsic factor, and pernicious anemia is identified, will need injectable B12. #MELVA - improving, likely prerenal #Hyperkalemia #Pseudohyponatremia Her blood sugars have been very elevated at home, seemingly in the 400s-600s quite frequently, which would have led to an osmotic diuresis. All of this would have contributed to a prerenal MELVA and associated hyperkalemia. Lokelma used daily until potassium normalized. Patient's hyponatremia on admission was likely pseudohyponatremia in setting of hyperglycemia and improved with treatment of her HHS. However during this admission, patient was intermittently hyponatremic, likely due to a combination of continued hyperglycemia and low PO intake cause hypovolemia. Patient's creatinine was 1.43 on admission, normalized after treatment of her HHS but has been bouncing between 0.76 and 1.18, also likely due to hypovolemia from poor PO intake and intermittent catheter obstruction. #Cognitive impairment MoCA of 15/30 on 11/17. However, patient deemed to have capacity to take care of herself. Additionally, she is able to tell providers in great detail her insulin regimen and what steps she has done toprevent high blood sugars. Patient likely does need assistance in the future, and family has started looking for assisted living facilities. #Potential UTI, possibly associated with suprapubic catheter Patient had slight WBC on admission and soft BPs. Unclear whether she was having symptoms, but she did endorse possible fevers. Urinalysis likely shows contamination over infection, but patient is athigh infection risk with indwelling catheter. Patient's potential UTI was treated with ceftriaxone 2g daily for total 5 day course (11/04-11/08). Suprapubic catheter was exchanged on 11/05 and again on 11/11 after concerns for obstruction due to low UOP and rising creatinine, although CT scan showed catheter in correct position. Patient's catheter intermittently gets obstructed, with decent output with repositioning. #Wounds Followed peripherally by wound care during her hospital stay for her chronic wounds. Vital Signs at Discharge: BP: 114/66, Heart Rate: 96, Temp: 36.3 ??C (97.3 ??F), Resp: 18, Height: 168.9 cm (5' 6.5) (11/05/23 0259) Weight: 86.2 kg (190 lb) (11/21/23 1429) Functional and Cognitive Status: MoCA of on 11/17 Important Studies and Lab Data: Labs: Recent Labs 11/22/2342411/21/23 0413 11/20/23 0558 WBC 8.7 8.5 9.0 HGB 9.6* 10.4* 10.0* PLATELET 697* 674* 607* Recent Labs 11/22/2342411/21/23 0413 11/20/23 0558 NA 137 137 140 K 4.4 4.5 4.2 CL 104 105 105 CO2 22 22 23 BUN 38* 31* 26* CREATININE 1.02 0.92 0.95 Recent Labs 11/22/2342411/21/23 0413 11/20/23 0558 CALCIUM 9.2 9.5 9.6 MAGNESIUM 0.75 0.76 0.73 No results for input(s): AST, ALT, ALKPHOS, BILITOT, BILIDIR in the last 168 hours. No results for input(s): TROPONINT, CK in the last 168 hours. No results for input(s): PHART, ZRI1JIQ, PO2ART, FVW7JLW in the last 168 hours. Pending Studies and Lab Data: Intrinsic factor Discharge Conditions/Prognosis: Stable condition Discharge to: home with services Updated Allergies/ADRs: Allergies Allergen Reactions Trazodone hallucinations Immunizations Given this Hospitalization: Immunization History Administered Date(s) Administered Influenza Unspecified Formulation 03/16/2017 Influenza Vaccine, Whole 05/05/2007 Moderna Covid-19 Monovalent 12Yr+ (Business Relations Manager 100mcg) 05/24/2021, 11/01/2021 Pfizer Covid-19 Bivalent 12Yrs+ (Elliott Cap 30mcg) 09/23/2022 Pfizer(COMIRNATY) Covid-19 Vaccine 12yrs+ (30mcg) 05/28/2023, 10/27/2023 Tdap 11/20/2006 Zoster (Zostavax) LIVE 03/26/2015 Discharge Medications: Your Medications New Medications Dose Details cyanocobalamin (Vitamin B-12) 1,000 mcg tablet Commonly known as: Vitamin B-12 Take 1 tablet by mouth daily. Start taking on: November 24, 2023 1,000 mcg Quantity: 30 tablet Refills: 3 Continued medications with new dosing Dose Details insulin aspart U-100 100 unit/mL (3 mL) Insulin Pen Commonly known as: NovoLOG Check blood glucose before each meal. Inject 12 units of novolog by pen for lunch, 6 units for dinner What changed: additional instructions Quantity: 3 mL Refills: 0 Lantus Solostar U-100 Insulin 100 unit/mL (3 mL) pen Inject 30 [...] new dose, cont. to decrease as needed. Generic drug: insulin glargine What changed: additional instructions Quantity: 3 mL Refills: 0 metFORMIN 500 mg tablet Commonly known as: Glucophage Take 1 tablet by mouth 2 times daily (with meals). 1000 mg = 2 tablets What changed: how much to take 500 mg Quantity: 60 tablet Refills: 3 metoprolol succinate XL 100 mg ER 24 hr tablet Commonly known as: Toprol-XL Take 3 tablets by mouth daily. Indications: ventricular rate control in atrial fibrillation What changed: how much to take when to take this 300 mg Quantity: 90 tablet Refills: 3 Continued medications, unchanged Dose Details atorvastatin 20 mg tablet Commonly known as: Lipitor Take 1 tablet by mouth daily. 20 mg Quantity: 90 tablet Refills: 3 MAGNESIUM GLUCONATE ORAL Take 500 mg by mouth 3 times daily. 500 mg Refills: [address] capsule Commonly known as: PriLOSEC Take 20 mg by mouth daily. 20 mg Refills: 0 rivaroxaban 20 mg tablet Commonly known as: Xarelto Take 1 tablet by mouth every evening. With meals. (Please run Rx for pricing) 20 mg Quantity: 90 tablet Refills: 3 STOPPED Medications dilTIAZem CD 180 mg CD (ER) 24 hr casule Commonly known as: Cardizem CD lisinopriL 10 mg tablet Commonly known as: Zestril Smoking Status at Discharge: Social History Tobacco Use Smoking Status Former Current packs/day: 0.00 Types: Cigarettes Quit date: 06/22/1979 Years since quittin.4 Smokeless Tobacco Never Tobacco Comments per phone call 01/02/2011 Instructions Given to Patient at Discharge: Patient Instructions Instruction after leaving the hospital Why you were hospitalized: You were hospitalized with DKA. Is important to consistently take your diabetes medications. Please do not eat excessive carbohydrates and simple sugars (such as a tub of ice cream) Diabetes Regimen: Lantus 30 units at night Humalog (short acting insulin) 12 units at lunch, 6 units with dinner Metformin 500 mg twice daily (increase dose to 1000 mg if you do not have symptoms as directed by your primary care) Your primary care will restart Trulicity and also Farxiga Please check your blood sugar at least daily, ideally 3 times before meals Call your doctor or seek medical attention if you develop the following: chest pain, shortness of breath, passing out, feeling dizzy upon standing, passing out, diarrhea, constipation lasting longer than 2 days, fevers (temperature over 100.3), chills, abdominal pain, vomiting, difficulty or discomfort when urinating, bloody or black bowel movements, or any other acute or concerning symptom. Activity level: No restrictions Diet: No restrictions Driving: No restrictions, as before admission Shower/Bath: No restrictions Wound Care: VNA services Home Oxygen therapy: None Follow-Up Appointments You have a Primary Care follow up appointment scheduled for 11/25 at 3:00 pm. Your Inpatient Doctor(s) at [facility]: Dr. Nicolás Kothari The Section of Hospital Medicine hopes you have a safe and stress free transition out of the hospital. As an additional safeguard to help this transition happen seamlessly we have created a tool to help us stay in communication in case there are any questions or concerns after your discharge. If you are not being discharged to another care setting, where they will take over your medical care, please anticipate a brief questionnaire from our Section that will help us ensure you do not have any issues with your discharge and are as safe and healthy as possible. This questionnaire will be sent out after your discharge, and will be delivered via text primarily but also email if texting is not possible. If there do happen to be any issues or concerns once you leave [facility], we apologize for any undue stress this may cause. Please do not hesitate to call your PCP office or seek further medical assistance if there are any [facility]. This questionnaire is not meant to provide immediate access to a physician, but has been created to help us ease the transition out of the hospital. Someone from our Section will reach out after the questionnaire is completed if you have raised any concerns, or have requested a callback, to help ensure your concerns are addressed and a plan is made to keep you safe and healthy. Thankyou in advance for your time completing this questionnaire. General Instructions None Future Appointments and Orders Future Orders Complete By Expires Referral to Home Health [REF34 Custom] As directed Process Instructions: If no progress note charted, please enter Clinical details in comments. Scheduling Instructions: Comments: Please evaluate Hope Yee for admission to Home Health. Pts home address is below: [address] [place] [address] [address] [facility] [address] FYI- PT WILL BE DISCHARGING TO HER DAUGHTERS' HOME: at address [address] [place], [place] Beat[place], Phone Number: [phone] (home) [phone] (work) Date of : 1950 Inpatient DOCUMENTATION FOR VNA SERVICES (INCLUDING THOSE PATIENTS WITH MEDICARE COVERAGE REQUIRING HOME VNA SERVICES AND/OR HOSPICE SERVICES) PATIENT'S LOCATION: Hope Yee [address] [place] [phone] (home) Cell: Telephone Information: Register Clerk's Name:self In discussion with the attending physician, it is certified that this patient is under their care and that they, or a Nurse Practitioner, Clinical Nurse specialist or Physician Parimutuel Ticket Seller who is working directly with them, had a face to face encounter that meets the physician face to face encounter requirements with this patient on 11/23/2023 (MD please enter DC date here) The encounter with the patient was in whole, or in part, for the following medical condition, whichis the primary reason for home health care services: DKA In discussion with the provider, it is certified that, based on their findings, the following services are medically necessary for home health services. To provide the following care/treatments with the clinical findings supporting the need for services as follows: HOME CARE ORDERS: RN ORDERS: Assess vital signs, cardiopulmonary status, nutrition, hydration, elimination -Additional Orders: Monitor medication effectiveness and management, Reinforce education regarding health issues, and blood sugars and general ability to administer and remember to administer insulin Wound care: Dermafit Size D Remove Dermafit to assess legs for pressure related injury daily. 1. Cleanse leg(s) with Dermal Wound Cleanser, pat dry. 2. Place Dermafit by pulling Dermafit onto leg up to popliteal space, like you would place a sock. (Keep in single layer, preventing bunching behind the knee). 3. Double back Dermafit upon itself, creating a two layer sock. Make sure the top of the second layer is 1 inch below the top of the first layer to allow for a graduated compression at the proximal end. PT ORDERS: Continue rehab for endurance, gait stability and strength with mobility and transfers. Home safety evaluation. Home exercise program if appropriate. OT ORDERS: Assess and continue rehab for managing ADLs. HOME HEALTH CARE AGENCY: [facility]. [address] [place] [address] START OF CARE: Home Health services requested to start in 24-72 hours form Laura.IF VNA agency/ Home Health, with limited availability of this service at this time, plan for a SOC as soon as possible after that timeframe. The multidisciplinary team members and patient are aware. In discussion with the attending physician, it is certified that the clinical findings support thatthis patient is homebound because absences from home require considerable and taxing effort due to:Unable to ambulate community surfaces or distances unassisted due to pain, lower extermity weaknessor decreased balance and risk for falls Unsteady gait, poor balance, requiring assistive devices and/or assistance of another. Please note that any additional orders needs or changes will need to be obtained from this patient's PCP: KATHLEEN Retana DR [facility] [id number] . All VNA agencies which cover the area of patient's residence have been reviewed, either verbally or in writing, and patient/family have chosen the home health care agency noted. Questions: Disciplines Requested: Nursing Physical Therapy Occupational Therapy Discharge References/Attachments None documented in this encounter Discharge Instructions * Patient Instructions* Nicolás Kothari MD - 11/06/2023 8:27 AM EDT Instruction after leaving the hospital Why you were hospitalized: You were hospitalized with DKA. Is important to consistently take your diabetes medications. Please do not eat excessive carbohydrates and simple sugars (such as a tub of ice cream) Diabetes Regimen: Lantus 30 units at night Humalog (short acting insulin) 12 units at lunch, 6 units with dinner Metformin 500 mg twice daily (increase dose to 1000 mg if you do not have symptoms as directed by your primary care) Your primary care will restart Trulicity and also Farxiga Please check your blood sugar at least daily, ideally 3 times before meals Call your doctor or seek medical attention if you develop the following: chest pain, shortness of breath, passing out, feeling dizzy upon standing, passing out, diarrhea, constipation lasting longer than 2 days, fevers (temperature over 100.3), chills, abdominal pain, vomiting, difficulty or discomfort when urinating, bloody or black bowel movements, or any other acute or concerning symptom. Activity level: No restrictions Diet: No restrictions Driving: No restrictions, as before admission Shower/Bath: No restrictions Wound Care: VNA services Home Oxygen therapy: None Follow-Up Appointments You have a Primary Care follow up appointment scheduled for 11/25 at 3:00 pm. Your Inpatient Doctor(s) at [facility]: Dr. Nicolás Kothari The Section of Hospital Medicine hopes you have a safe and stress free transition out of the hospital. As an additional safeguard to help this transition happen seamlessly we have created a tool to help us stay in communication in case there are any questions or concerns after your discharge. If you are not being discharged to another care setting, where they will take over your medical care, please anticipate a brief questionnaire from our Section that will help us ensure you do not have any issues with your discharge and are as safe and healthy as possible. This questionnaire will be sent out after your discharge, and will be delivered via text primarily but also email if texting is not possible. If there do happen to be any issues or concerns once you leave [facility], we apologize for any undue stress this may cause. Please do not hesitate to call your PCP office or seek further medical assistance if there are any [facility]. This questionnaire is not meant to provide immediate access to a physician, but has been created to help us ease the transition out of the hospital. Someone from our Section will reach out after the questionnaire is completed if you have raised any concerns, or have requested a callback, to help ensure your concerns are addressed and a plan is made to keep you safe and healthy. Thankyou in advance for your time completing this questionnaire. documented in this encounter Medications at Time of Discharge Medication Sig Dispensed Refills Start Date End Date atorvastatin (Lipitor) 20 mg tabletIndications:Hyperl ipidemia, unspecified hyperlipidemia type Take 1 tablet by mouth daily. 90 tablet 3 11/23/2023 metFORMIN (Glucophage) 500 mg tablet Take 1 tablet by mouth 2 times daily (with meals). 1000 mg = 2 tablets 60 tablet 3 11/23/2023 metoprolol succinate XL (Toprol-XL) 100 mg ER 24 hr tabletIndications:ventri cular rate control in atrial fibrillation Take 3 tablets by mouth daily. Indications: ventricular rate control in atrial fibrillation 90 tablet 3 11/23/2023 rivaroxaban (Xarelto) 20 mg tabletIndications:Atrial fibrillation Take 1 tablet by mouth every evening. With meals. (Please run Rx for pricing) 90 tablet 3 11/23/2023 cyanocobalamin, Vitamin B-12, (Vitamin B-12) 1,000 mcg tablet Take 1 tablet by mouth daily. 30 tablet 3 11/24/2023 insulin aspart U-100 (NovoLOG) 100 unit/mL (3 mL) Insulin Pen Check blood glucose before each meal. Inject 12 units of novolog by pen for lunch, 6 units for dinner 3 mL 11/23/2023 insulin glargine (Lantus Solostar U-100 Insulin) 100 [...] to decrease as needed. 3 mL 11/23/2023 MAGNESIUM GLUCONATE ORAL Take 500 mg by mouth 3 times daily. omeprazole (PRILOSEC) 20 mg Capsule, Delayed Release(E.C.) Take 20 mg by mouth daily. documented as of this encounter Progress Notes * Artem Patel RN - 11/23/2023 2:10 PM EDT A&Ox4, cooperative w/ cares. VSS, RA. Pt reporting mild pain to BLE, denies need for PRN Tylenol. OOB x1 assist w/ RW, ambulating in the room and to BR. +BM, suprapubic catheter intact. Pt discharged to daughter's house. Transported off unit via wheelchair, assisted into car. PIV removed. Discharge paperwork given and questions answered. * Nicolás Kothari MD - 11/22/2023 2:49 PM EDT Hospital Medicine Attending Daily Progress Note Admit Date: 11/05/2023 Hospital Day 17 days Active Hospital Problems Diagnosis DKA (diabetic ketoacidosis) Permanent atrial fibrillation Resolved Hospital Problems No resolved problems to display. 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 2 diabetes mellitus, with fat layer exposed Seronegative rheumatoid arthritis Heart murmur Gastroesophageal reflux Pseudophakia, both eyes Diabetic peripheral neuropathy Hypertension, essential, benign Hyperlipidemia SVT (supraventricular tachycardia) Gait instability Seronegative arthritis Osteoarthrosis, unspecified whether generalized or localized, pelvic region and thigh Osteoarthrosis, unspecified whether generalized or localized, lower leg Osteoarthrosis, unspecified whether generalized or localized, ankle and foot Nevus History of malignant melanoma History of basal cell carcinoma Personal history of malignant melanoma Rosacea Basal cell carcinoma of back Malignant melanoma Inpatient Medications: Scheduled metFORMIN 1,000 mg Oral BID WC insulin glargine (Lantus;Semglee) (100 unit/mL) subcutaneous injection 34 Units Subcutaneous Daily rivaroxaban 20 mg Oral Daily with dinner insulin lispro 1-6 Units Subcutaneous TID AC insulin lispro 0-20 Units Subcutaneous TID WC metoprolol succinate XL 300 mg Oral Daily cyanocobalamin (Vitamin B-12) 1,000 mcg Oral Daily sodium chloride 0.9 % (flush) 5 mL Intravenous BID Continuous infusions: PRN: acetaminophen, calcium carbonate, insulin lispro, glucose 40% oral geL OR dextrose OR glucagon, sodium chloride 0.9 % (flush), lidocaine Interval History Patient is able to describe diabetic regimen in detail, including the amount of nighttime insulin she takes, noontime meal associated insulin, and recent changes to nighttime insulin. She also was able to tell me that she takes a shot (likely Victoza), and also takes metformin. Says she would like to go home and could potentially live with her daughter No acute physical concerns on my exam. No CP, SOB, abdominal pain, fevers, chills. Physical Exam Vitals Range last 24 hrs Temperature Temp: [36.3 ??C (97.3 ??F)-36.6 ??C (97.9 ??F)] Heart Rate Heart Rate: -- Blood Pressure BP: (105-116)/(62-73) Respiratory Rate Resp: [18-20] SpO2 SpO2: [94 %-97 %] Intake/Output Summary (Last 24 hours) at 11/22/2023 1449 Last data filed at 11/22/2023 1145 Gross per 24 hour Intake 360 ml Output 2050 ml Net -1690 ml Patient Vitals for the past 168 hrs: Weight 11/21/23 1429 86.2 kg (190 lb) Body mass index is 30.21 kg/m??. Physical Exam General: NAD, oriented HEENT: Anicteric sclera CV: irreg irreg Lungs: CTA bilaterally Abd: Non-tender Ext: no edema, stockings on LABS: Last 3 wbc, hgb, hct plt Recent Labs 11/22/23 0425 11/21/23 0413 11/20/23 0558 WBC 8.7 8.5 9.0 HGB 9.6* 10.4* 10.0* HCT 33.7* 35.9 33.9* PLATELET 697* 674* 607* Last 3 Lytes Recent Labs 11/22/23 0425 11/21/23 0413 11/20/23 0558 NA 137 137 140 K 4.4 4.5 4.2 CL 104 105 105 CO2 22 22 23 BUN 38* 31* 26* CREATININE 1.02 0.92 0.95 Last 3 LFTs Recent Labs 11/09/23 0000 11/05/23 0335 AST 20 268* ALT 47* 174* ALKPHOS 76 119* BILITOT <0.2* 0.3 BILIDIR <0.1 0.2 FSBG Trend Recent Labs 11/22/23 1136 11/22/23 0748 11/21/23 2302 11/21/23 2232 11/21/23 1556 11/21/23 1204 11/21/23 0811 11/21/23 0415 11/20/23 1937 11/20/23 1614 POCGLU 133 89 78 67 180 246* 136 82 168 189 MICRO: No results for input(s): URINECULTURE in the last 720 hours. No results for input(s): GRAMSTAIN, BFCX, LOWERRESPCX, TISSUECX in the last 720 hours. Recent Labs 11/05/23 0400 11/05/23 0415 BLOODCX No growth at 5 days. No growth at 5 days. ECG: Recent Labs 11/15/23 1456 DIAGLINE Atrial fibrillation Low voltage QRS Abnormal ECG When compared with ECG of 05-NOV-2023 03:10, No significant change was found QTCCALC 454 VASCULAR: Recent Labs 11/09/23 1643 VBTEXTRPT Department: Vascular Surgery Lab Patient: [id number] (HOPE YEE) CPT: 84080 Referring Physician: JOAQUIM GEORGES Phone: Indications: Chronic LE wound ? perfusion Diabetes mellitus: Yes Findings: Right Pressure (mm Hg) Waveform TBI Brachial Artery 134 Dorsalis Pedis (Ankle) Artery >254 Triphasic Posterior Tibial (Ankle) Artery >254 Triphasic Great Toe 113 0.84 Left Pressure (mm Hg) Waveform TBI Brachial Artery IV Dorsalis Pedis (Ankle) Artery >254 Triphasic Posterior Tibial (Ankle) Artery >254 Triphasic Great Toe 111 0.83 Interpretation: RIGHT: No significant lower extremity arterial [...] ABIs with change from previous value: Date RIGHT DP RIGHT PT RT GR TOE RT Sec TOE 1.21 1.29 0.75 ---- Current ---- ---- 0.84(+.09) ---- Date LEFT DP LEFT PT LT GR TOE LT Sec TOE 1.21 1.22 0.76 ---- Current ---- ---- 0.83(+.07) ---- End of Report IMAGING: Results for orders placed or performed during the hospital encounter of 11/05/23 XR Chest One View (Exam End: 11/05/2023 3:58 AM) Result Value WORKSTATION ID [id number] Impression Right IJ central venous catheter with tip projecting over the right atrium. I have personally reviewed the image(s) and the resident's interpretation and agree with the findings, Emeka Wolfe MD at 11/05/2023 4:37 AM Thank you for letting us participate in the care of this patient. If you are a health care provider and have any questions regarding this report, please contact the number below. For patients who have questions please contact the health adult day care worker that requested your imaging first. Abdomen & Pelvis wo Contrast (Exam End: 11/11/2023 12:20 PM) Result Value WORKSTATION ID [id number] Impression Appropriate position of the suprapubic catheter, however, persistent moderate bladder distention. Possible catheter obstruction/clog; correlate with ability to flush catheter. The overall appearance is similar to 2021 when the catheter was in appropriate position and the bladder was distended. Thank you for letting us participate in the care of this patient. If you are a health care provider and have any questions regarding this report, please contact the number below. For patients who have questions please contact the health adult day care worker that requested your imaging first. Electronically signed by: SUNSHINE ALCOCER MD, [facility] ([phone]), at 11/11/2023 1:06 PM TTE 11/05/23 Interpretation Summary Normal left ventricular size with hyperdynamic systolic function. Ejection fraction is visually 70%. There are no regional wall motion abnormalities. The right ventricle is mildly dilated with normal systolic function. There is no significant valvular disease. Compared to prior echo from 01/08/18, there are no major changes. ASSESSMENT and PLAN: Hope is a 73 y/o with HTN, AF on rivaroxaban, poorly-controlled T2DM (A1C 13), CKD, chronic indwelling suprapubic catheter requiring exchange this admission, and prior TIA presenting in transfer from [facility] with bradycardia, hypotension, and hyperglycemia. Hyperglycemia improving but with some hypoglycemia and adjusting insulin - appreciate DM assistance. HR overall improved once patient is normoglycemic. Patient describes that medication noncompliance was not the issue that brings her in. Is difficult for me to discern. She is able to describe her complex diabetes regimen in detail. No big changes per diabetes management team. Safe for home alone per PT/OT with daily check-ins and explore daughter if can help support (for DMmanagement and rate control/medications) as worry about her managing her insulin. Son is reportedlyworking on getting her into a [facility] near him in [place]. Anticipate if daughter could stay withher while son explores [facility] that may be viable. 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 #Atrial fibrillation - consulted EP earlier in admit, no ppm for now - Temp pacing wire removed 11/04 - Holding home diltiazem - metop succinate qD, uptitrating for goal HR < 110 at rest - increased to 300mg 11/17 and monitor - consider 200mg BID - Rivaroxaban 20 mg nightly #MELVA obstructive 2/2 malfunctioning SPC, resolved #MELVA, suspect prerenal #Hyperkalemia, possibly 2/2 labile hyperglyclemia - Lokelma intermittent last week - continue to monitor off - ctm K and Cr - Urology consult, tray recs, replaced SPC 11/11 - off mIVF #Hyperglycemia #Probable HHS, resolved #Poorly-controlled T2DM Last A1C 13.1 - Diabetes management following; appreciate recs - Holding home Trulicity, Jardiance, and metformin - SSI and meal associated - adjust as needed - Hypoglycemia on higher lantus - decrease 36U to 34U (was as high as 58U last week) #UTI, possibly associated with suprapubic catheter, in place for prior hx recurrent urinary retention - s/p Ceftriaxone 2g daily for 5 days (completed 11/08) # Sacral decub ulcer: - appreciate wound care consult #Housekeeping: - DVT PPx: Home rivaroxaban - Diet: Carb Control diet 60/60/75 CHO counting level 2 - Level of care: Med/ surg - Code Status: DNR but pre-arrest intubation is permitted Team Pager( Coverage 12/01): #[phone] PCP: KATHLEEN Retana [phone] IPI Certification I certify that I am a D-H credentialed attending provider with admitting privileges and that the patient meets or has met medical necessity to require an inpatient IPI level of care meeting a minimumof two midnights or is on the [facility] inpatient only procedure list (status C) due to: acute kidney injury necessitating close monitoring of fluid balance such as intravenous fluids and/or titration of medication to achieve optimal effect and minimize the chance of immediate or severe side effects Nicolás Kothari MD 11/22/2023 * Nicolás Kothari MD - 11/21/2023 5:01 PM EDT Hospital Medicine Attending Daily Progress Note Admit Date: 11/05/2023 Hospital Day 16 days Active Hospital Problems Diagnosis DKA (diabetic ketoacidosis) Permanent atrial fibrillation Resolved Hospital Problems No resolved problems to display. 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 2 diabetes mellitus, with fat layer exposed Seronegative rheumatoid arthritis Heart murmur Gastroesophageal reflux Pseudophakia, both eyes Diabetic peripheral neuropathy Hypertension, essential, benign Hyperlipidemia SVT (supraventricular tachycardia) Gait instability Seronegative arthritis Osteoarthrosis, unspecified whether generalized or localized, pelvic region and thigh Osteoarthrosis, unspecified whether generalized or localized, lower leg Osteoarthrosis, unspecified whether generalized or localized, ankle and foot Nevus History of malignant melanoma History of basal cell carcinoma Personal history of malignant melanoma Rosacea Basal cell carcinoma of back Malignant melanoma Inpatient Medications: Scheduled insulin glargine (Lantus;Semglee) (100 unit/mL) subcutaneous injection 34 Units Subcutaneous Daily rivaroxaban 20 mg Oral Daily with dinner insulin lispro 1-6 Units Subcutaneous TID AC insulin lispro 0-20 Units Subcutaneous TID WC metoprolol succinate XL 300 mg Oral Daily cyanocobalamin (Vitamin B-12) 1,000 mcg Oral Daily sodium chloride 0.9 % (flush) 5 mL Intravenous BID Continuous infusions: PRN: acetaminophen, calcium carbonate, insulin lispro, glucose 40% oral geL OR dextrose OR glucagon, sodium chloride 0.9 % (flush), lidocaine Interval History Decreased lantus to 34U No acute physical concerns on my exam. No CP, SOB, abdominal pain, fevers, chills. Physical Exam Vitals Range last 24 hrs Temperature Temp: [36.3 ??C (97.3 ??F)-36.9 ??C (98.4 ??F)] Heart Rate Heart Rate: -- Blood Pressure BP: (103-132)/(63-81) Respiratory Rate Resp: [16-18] SpO2 SpO2: [94 %-98 %] Intake/Output Summary (Last 24 hours) at 11/21/2023 1701 Last data filed at 11/21/2023 1600 Gross per 24 hour Intake 1522 ml Output 2095 ml Net -573 ml Patient Vitals for the past 168 hrs: Weight 11/21/23 1429 86.2 kg (190 lb) Body mass index is 30.21 kg/m??. Physical Exam General: NAD, oriented HEENT: Anicteric sclera CV: irreg irreg Lungs: CTA bilaterally Abd: Non-tender Ext: no edema, stockings on LABS: Last 3 wbc, hgb, hct plt Recent Labs 11/21/23 0413 11/20/23 0558 11/19/23 0148 WBC 8.5 9.0 9.8* HGB 10.4* 10.0* 9.6* HCT 35.9 33.9* 32.7* PLATELET 674* 607* 534* Last 3 Lytes Recent Labs 11/21/23 0413 11/20/23 0558 11/19/23 0148 NA 137 140 138 K 4.5 4.2 4.4 CL 105 105 104 CO2 22 23 24 BUN 31* 26* 32* CREATININE 0.92 0.95 0.91 Last 3 LFTs Recent Labs 11/09/23 0000 11/05/23 0335 AST 20 268* ALT 47* 174* ALKPHOS 76 119* BILITOT <0.2* 0.3 BILIDIR <0.1 0.2 FSBG Trend Recent Labs 11/21/23 1556 11/21/23 1204 11/21/23 0811 11/21/23 0415 11/20/23 1937 11/20/23 1614 11/20/23 1113 11/20/23 0734 11/19/23 2122 11/19/23 1531 POCGLU 180 246* 136 82 168 189 137 77 207* 135 MICRO: No results for input(s): URINECULTURE in the last 720 hours. No results for input(s): GRAMSTAIN, BFCX, LOWERRESPCX, TISSUECX in the last 720 hours. Recent Labs 11/05/23 0400 11/05/23 0415 BLOODCX No growth at 5 days. No growth at 5 days. ECG: Recent Labs 11/15/23 1456 DIAGLINE Atrial fibrillation Low voltage QRS Abnormal ECG When compared with ECG of 05-NOV-2023 03:10, No significant change was found QTCCALC 454 VASCULAR: Recent Labs 11/09/23 1643 VBTEXTRPT Department: Vascular Surgery Lab Patient: [id number] (HOPE YEE) CPT: 37405 Referring Physician: JOAQUIM GEORGES Phone: Indications: Chronic LE wound ? perfusion Diabetes mellitus: Yes Findings: Right Pressure (mm Hg) Waveform TBI Brachial Artery 134 Dorsalis Pedis (Ankle) Artery >254 Triphasic Posterior Tibial (Ankle) Artery >254 Triphasic Great Toe 113 0.84 Left Pressure (mm Hg) Waveform TBI Brachial Artery IV Dorsalis Pedis (Ankle) Artery >254 Triphasic Posterior Tibial (Ankle) Artery >254 Triphasic Great Toe 111 0.83 Interpretation: RIGHT: No significant lower extremity arterial [...] ABIs with change from previous value: Date RIGHT DP RIGHT PT RT GR TOE RT Sec TOE 1.21 1.29 0.75 ---- Current ---- ---- 0.84(+.09) ---- Date LEFT DP LEFT PT LT GR TOE LT Sec TOE 1.21 1.22 0.76 ---- Current ---- ---- 0.83(+.07) ---- End of Report IMAGING: Results for orders placed or performed during the hospital encounter of 11/05/23 XR Chest One View (Exam End: 11/05/2023 3:58 AM) Result Value WORKSTATION ID [id number] Impression Right IJ central venous catheter with tip projecting over the right atrium. I have personally reviewed the image(s) and the resident's interpretation and agree with the findings, Emeka Wolfe MD at 11/05/2023 4:37 AM Thank you for letting us participate in the care of this patient. If you are a health care provider and have any questions regarding this report, please contact the number below. For patients who have questions please contact the health adult day care worker that requested your imaging first. Abdomen & Pelvis wo Contrast (Exam End: 11/11/2023 12:20 PM) Result Value WORKSTATION ID [id number] Impression Appropriate position of the suprapubic catheter, however, persistent moderate bladder distention. Possible catheter obstruction/clog; correlate with ability to flush catheter. The overall appearance is similar to 2021 when the catheter was in appropriate position and the bladder was distended. Thank you for letting us participate in the care of this patient. If you are a health care provider and have any questions regarding this report, please contact the number below. For patients who have questions please contact the health adult day care worker that requested your imaging first. Electronically signed by: SUNSHINE ALCOCER MD, [facility] ([phone]), at 11/11/2023 1:06 PM TTE 11/05/23 Interpretation Summary Normal left ventricular size with hyperdynamic systolic function. Ejection fraction is visually 70%. There are no regional wall motion abnormalities. The right ventricle is mildly dilated with normal systolic function. There is no significant valvular disease. Compared to prior echo from 01/08/18, there are no major changes. ASSESSMENT and PLAN: Hope is a 73 y/o with HTN, AF on rivaroxaban, poorly-controlled T2DM (A1C 13), CKD, chronic indwelling suprapubic catheter requiring exchange this admission, and prior TIA presenting in transfer from [facility] with bradycardia, hypotension, and hyperglycemia. Hyperglycemia improving but with some hypoglycemia and adjusting insulin - appreciate DM assistance. HR overall improved. Safe for home alone per PT/OT with daily check-ins and explore daughter if can help support (for DMmanagement and rate control/medications) as worry about her managing her insulin. Son is reportedlyworking on getting her into a [facility] near him in [place]. Anticipate if daughter could stay withher while son explores [facility] that may be viable. 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 #Atrial fibrillation - consulted EP earlier in admit, no ppm for now - Temp pacing wire removed 11/04 - Holding home diltiazem - metop succinate qD, uptitrating for goal HR < 110 at rest - increased to 300mg 11/17 and monitor - consider 200mg BID - Rivaroxaban 20 mg nightly #MELVA obstructive 2/2 malfunctioning SPC, resolved #MELVA, suspect prerenal #Hyperkalemia, possibly 2/2 labile hyperglyclemia - Lokelma intermittent last week - continue to monitor off - ctm K and Cr - Urology consult, tray recs, replaced SPC 11/11 - off mIVF #Hyperglycemia #Probable HHS, resolved #Poorly-controlled T2DM Last A1C 13.1 - Diabetes management following; appreciate recs - Holding home Trulicity, Jardiance, and metformin - SSI and meal associated - adjust as needed - Hypoglycemia on higher lantus - decrease 36U to 34U (was as high as 58U last week) #UTI, possibly associated with suprapubic catheter, in place for prior hx recurrent urinary retention - s/p Ceftriaxone 2g daily for 5 days (completed 11/08) # Sacral decub ulcer: - appreciate wound care consult #Housekeeping: - DVT PPx: Home rivaroxaban - Diet: Carb Control diet 60/60/75 CHO counting level 2 - Level of care: Med/ surg - Code Status: DNR but pre-arrest intubation is permitted Team Pager( Coverage 12/01): #[phone] PCP: KATHLEEN Retana [phone] IPI Certification I certify that I am a D-H credentialed attending provider with admitting privileges and that the patient meets or has met medical necessity to require an inpatient IPI level of care meeting a minimumof two midnights or is on the [facility] inpatient only procedure list (status C) due to: acute kidney injury necessitating close monitoring of fluid balance such as intravenous fluids and/or titration of medication to achieve optimal effect and minimize the chance of immediate or severe side effects Nicolás Kothari MD 11/21/2023 * Paola Ramirez, DT - 11/21/2023 2:00 PM EDT Nutrition Services Note - Low Nutrition Acuity Hope Yee is a 73 y.o. female Reason for intervention: follow up Nutrition Plan: Continue current diet Encourage good po Vitamin B12, insulin noted Monitor wt- requested updated wt Support and encouragement provided Patient screened for follow up and scenario writer spoke with pt over the phone. Pt states her appetite is really good, her UBW is 191-197lbs and she has no nutritional questions or concerns. Pt voiced she is able to finish 100% of her meals and denies difficulty chewing/swallowing or nausea/vomiting. Pt has varying po intakes recorded at either 0 or 100% over the last 4 days per flowsheets. According to dining services pt ordered ~ 1706kcals/day within the same duration. Unable to assess wt changes d/t last recorded wt on 11/10. Please update and trend wts to allow for ongoing assessment of wt changes. Requested updated wt from Rn. Clinical Nutrition to monitor and follow up Active Orders Diet Carb Control diet 60/60/75 CHO counting level 2 Frequency: Effective Now Number of Occurrences: Until Specified Admit Weight: 87.8 kg Estimated body mass index is 30.77 kg/m?? as calculated from the following: Height as of this encounter: 168.9 cm (5' 6.5). Weight as of this encounter: 87.8 kg (193 lb 9 oz). Wt Readings from Last 5 Encounters: 11/05/23 87.8 kg (193 lb 9 oz) 11/11/23 87.8 kg (193 lb 9 oz) 01/11/18 94.7 kg (208 lb 12.4 oz) 10/06/11 96.6 kg (213 lb) Weight loss: Unable to assess d/t last recorded wt on 11/10 Appetite: varying, 0% or 100% Food allergies:no known food allergies Chewing/Swallowing difficulty: none Nausea/Vomiting: no nausea and no vomiting Last Bowel Movement: 11/20/23 Patient education / questions: all nutrition related questions answered at this time Nutrition services to follow weekly through hospital course unless consulted in the interim. [facility] Child Care Provider * Angelika Woody P - 11/20/2023 2:59 PM EDT Called patient's daughter Beatriz around 2pm to assess readiness and willingness to have her mother stay at her house. Beatriz stated she is open to having her mother stay in a camper in [facility] for as long as she needs. Reports she lives on the [place] side of [facility] so would not be living on the same property as her mother, but could provide some support. Beatriz also states that from the camper, her mother would have access to some public transportation to get herself to [facility] or other places to get her medications. Beatriz also reported she would be willing to help her mother clean her apartment. Discussed situation with Mrs Yee herself, who says she would be okay with living in the camper. She wants to have time to go through her things in her apartment and decide what she wants to keep. Mrs. Yee also described sending a money order of around $800 every month to a man named 'Braulio Cristina' or '[employer]' in [place]. She reports that she is somebody who has been helping her since her 'troubles' with the federal government 'a long time ago'. Reports having paid part of a large loan (total loan over $20,000) with a remaining $13,000 to pay off. Although she does not provide a detailed explanation for what the loan is for, she believes that she would go backto residential if she stops paying it. Additionally, she believes that if she does not finish paying off her debt, that all the money she has 'put in' will have been for nothing and she will still have to pay the full loan. She believes Brualio Cristina's business to be legal, as she has known him for multiple decades. Discussed with Hope the importance of understanding what she is spending money on in order to be eligible for Medicaid. Hope expressed understanding that in order to be eligible for Medicaid, herfinances need to be more transparent. She agrees she would benefit from a 'fresh start'. Angelika Woody, Medical Student Pager #[phone] * Idania Matthews MD - 11/20/2023 1:15 PM EDT Hospital Medicine Attending Daily Progress Note Admit Date: 11/05/2023 Hospital Day 15 days Active Hospital Problems Diagnosis DKA (diabetic ketoacidosis) Permanent atrial fibrillation Resolved Hospital Problems No resolved problems to display. 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 2 diabetes mellitus, with fat layer exposed Seronegative rheumatoid arthritis Heart murmur Gastroesophageal reflux Pseudophakia, both eyes Diabetic peripheral neuropathy Hypertension, essential, benign Hyperlipidemia SVT (supraventricular tachycardia) Gait instability Seronegative arthritis Osteoarthrosis, unspecified whether generalized or localized, pelvic region and thigh Osteoarthrosis, unspecified whether generalized or localized, lower leg Osteoarthrosis, unspecified whether generalized or localized, ankle and foot Nevus History of malignant melanoma History of basal cell carcinoma Personal history of malignant melanoma Rosacea Basal cell carcinoma of back Malignant melanoma Inpatient Medications: Scheduled insulin glargine (Lantus;Semglee) (100 unit/mL) subcutaneous injection 36 Units Subcutaneous Daily rivaroxaban 20 mg Oral Daily with dinner insulin lispro 1-6 Units Subcutaneous TID AC insulin lispro 0-20 Units Subcutaneous TID WC metoprolol succinate XL 300 mg Oral Daily cyanocobalamin (Vitamin B-12) 1,000 mcg Oral Daily sodium chloride 0.9 % (flush) 5 mL Intravenous BID Continuous infusions: PRN: acetaminophen, calcium carbonate, insulin lispro, glucose 40% oral geL OR dextrose OR glucagon, sodium chloride 0.9 % (flush), lidocaine Interval History Decreased lantus to 36U - 70s this morning No acute physical concerns on my exam. No CP, SOB, abdominal pain, fevers, chills. Physical Exam Vitals Range last 24 hrs Temperature Temp: [36.3 ??C (97.3 ??F)-36.9 ??C (98.4 ??F)] Heart Rate Heart Rate: [87-96] Blood Pressure BP: (101-137)/(60-76) Respiratory Rate Resp: [16-19] SpO2 SpO2: [96 %-98 %] Intake/Output Summary (Last 24 hours) at 11/20/2023 0847 Last data filed at 11/20/2023 0737 Gross per 24 hour Intake 390 ml Output 1920 ml Net -1530 ml No data found. Body mass index is 30.77 kg/m??. Physical Exam General: NAD, oriented HEENT: Anicteric sclera CV: irreg irreg Lungs: CTA bilaterally Abd: Non-tender Ext: no edema, stockings on LABS: Last 3 wbc, hgb, hct plt Recent Labs 11/20/23 0558 11/19/23 0148 11/18/23 0521 WBC 9.0 9.8* 9.9* HGB 10.0* 9.6* 9.9* HCT 33.9* 32.7* 33.4* PLATELET 607* 534* 472* Last 3 Lytes Recent Labs 11/20/23 0558 11/19/23 0148 11/18/23 0521 NA 140 138 135 K 4.2 4.4 4.9 CL 105 104 101 CO2 BUN 26* 32* 35* CREATININE 0.95 0.91 1.32* Last 3 LFTs Recent Labs 11/09/23 0000 11/05/23 0335 AST 20 268* ALT 47* 174* ALKPHOS 76 119* BILITOT <0.2* 0.3 BILIDIR <0.1 0.2 FSBG Trend Recent Labs 11/20/23 0734 11/19/23 2122 11/19/23 1531 11/19/23 1140 11/19/23 0729 11/18/23 1934 11/18/23 1716 11/18/23 1526 11/18/23 1250 11/18/23 1103 POCGLU 77 207* 135 212* 79 95 152 268* 240* 258* MICRO: No results for input(s): URINECULTURE in the last 720 hours. No results for input(s): GRAMSTAIN, BFCX, LOWERRESPCX, TISSUECX in the last 720 hours. Recent Labs 11/05/23 0400 11/05/23 0415 BLOODCX No growth at 5 days. No growth at 5 days. ECG: Recent Labs 11/15/23 1456 DIAGLINE Atrial fibrillation Low voltage QRS Abnormal ECG When compared with ECG of 05-NOV-2023 03:10, No significant change was found QTCCALC 454 VASCULAR: Recent Labs 11/09/23 1643 VBTEXTRPT Department: Vascular Surgery Lab Patient: [id number] (HOPE YEE) CPT: 09006 Referring Physician: JOAQUIM GEORGES Phone: Indications: Chronic LE wound ? perfusion Diabetes mellitus: Yes Findings: Right Pressure (mm Hg) Waveform TBI Brachial Artery 134 Dorsalis Pedis (Ankle) Artery >254 Triphasic Posterior Tibial (Ankle) Artery >254 Triphasic Great Toe 113 0.84 Left Pressure (mm Hg) Waveform TBI Brachial Artery IV Dorsalis Pedis (Ankle) Artery >254 Triphasic Posterior Tibial (Ankle) Artery >254 Triphasic Great Toe 111 0.83 Interpretation: RIGHT: No significant lower extremity arterial [...] ABIs with change from previous value: Date RIGHT DP RIGHT PT RT GR TOE RT Sec TOE 1.21 1.29 0.75 ---- Current ---- ---- 0.84(+.09) ---- Date LEFT DP LEFT PT LT GR TOE LT Sec TOE 1.21 1.22 0.76 ---- Current ---- ---- 0.83(+.07) ---- End of Report IMAGING: Results for orders placed or performed during the hospital encounter of 05/16/24 XR Chest One View (Exam End: 11/05/2023 3:58 AM) Result Value WORKSTATION ID [id number] Impression Right IJ central venous catheter with tip projecting over the right atrium. I have personally reviewed the image(s) and the resident's interpretation and agree with the findings, Emeka Wolfe MD at 11/05/2023 4:37 AM Thank you for letting us participate in the care of this patient. If you are a health care provider and have any questions regarding this report, please contact the number below. For patients who have questions please contact the health adult day care worker that requested your imaging first. Abdomen & Pelvis wo Contrast (Exam End: 11/11/2023 12:20 PM) Result Value WORKSTATION ID [id number] Impression Appropriate position of the suprapubic catheter, however, persistent moderate bladder distention. Possible catheter obstruction/clog; correlate with ability to flush catheter. The overall appearance is similar to 202 when the catheter was in appropriate position and the bladder was distended. Thank you for letting us participate in the care of this patient. If you are a health care provider and have any questions regarding this report, please contact the number below. For patients who have questions please contact the health adult day care worker that requested your imaging first. Electronically signed by: SUNSHINE ALCOCER MD, [facility] ([phone]), at 11/11/2023 1:06 PM TTE 11/05/23 Interpretation Summary Normal left ventricular size with hyperdynamic systolic function. Ejection fraction is visually 70%. There are no regional wall motion abnormalities. The right ventricle is mildly dilated with normal systolic function. There is no significant valvular disease. Compared to prior echo from 01/08/18, there are no major changes. ASSESSMENT and PLAN: Hope is a 73 y/o with HTN, AF on rivaroxaban, poorly-controlled T2DM (A1C 13), CKD, chronic indwelling suprapubic catheter requiring exchange this admission, and prior TIA presenting in transfer from [facility] with bradycardia, hypotension, and hyperglycemia. Hyperglycemia improving but with some hypoglycemia and adjusting insulin - appreciate DM assistance. HR overall improved. Safe for home alone per PT/OT with daily check-ins and explore daughter if can help support (for DMmanagement and rate control/medications) as worry about her managing her insulin. Son is reportedlyworking on getting her into a [facility] near him in [place]. Anticipate if daughter could stay withher while son explores [facility] that may be viable but continue to explore. 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 #Atrial fibrillation - consulted EP earlier in admit, no ppm for now - Temp pacing wire removed 11/04 - Holding home diltiazem - metop succinate qD, uptitrating for goal HR < 110 at rest - increased to 300mg 11/17 and monitor - consider 200mg BID - Rivaroxaban 20 mg nightly #MELVA obstructive 2/2 malfunctioning SPC, resolved #MELVA, suspect prerenal #Hyperkalemia, possibly 2/2 labile hyperglyclemia - Lokelma intermittent last week - continue to monitor off - ctm K and Cr - Urology consult, tray recs, replaced SPC 11/11 - off mIVF #Hyperglycemia #Probable HHS, resolved #Poorly-controlled T2DM Last A1C 13.1 - Diabetes management following; appreciate recs - Holding home Trulicity, Jardiance, and metformin - SSI and meal associated - adjust as needed - Hypoglycemia on higher lantus - decrease 36U to 34U (was as high as 58U last week) #UTI, possibly associated with suprapubic catheter, in place for prior hx recurrent urinary retention - s/p Ceftriaxone 2g daily for 5 days (completed 11/08) # Sacral decub ulcer: - appreciate wound care consult #Housekeeping: - DVT PPx: Home rivaroxaban - Diet: Carb Control diet 60/60/75 CHO counting level 2 - Level of care: Med/ surg - Code Status: DNR but pre-arrest intubation is permitted Team Pager( Coverage 12/01): #[phone] PCP: KATHLEEN Retana [phone] IPI Certification I certify that I am a [facility] credentialed attending provider with admitting privileges and that the patient meets or has met medical necessity to require an inpatient IPI level of care meeting a minimumof two midnights or is on the CMS inpatient only procedure list (status C) due to: acute kidney injury necessitating close monitoring of fluid balance such as intravenous fluids and/or titration of medication to achieve optimal effect and minimize the chance of immediate or severe side effects Idania Matthews MD 11/20/2023 * Kendra Peterson, OT - 11/20/2023 11:45 AM EDT Occupational Therapy Treatment Note Treatment Number OT: 4 Patient Dx: Hope Yee is a 73 y.o. female with PMH of HTN, atrial fibrillation on rivaroxaban, poorly-controlled T2DM, CKD, chronic indwelling suprapubic catheter, and prior TIA presenting intransfer from [facility] with bradycardia, hypotension, and hyperglycemia. Past Medical History Past Medical History: Diagnosis Date Atrial fibrillation Diabetes mellitus GERD (gastroesophageal reflux disease) Hypertension Melanoma in situ s/p removal Rheumatoid arthritis SVT (supraventricular tachycardia) Past Surgical History Past Surgical History: Procedure Laterality Date SECTION JOINT REPLACEMENT Social History: Patient lives alone in [place], [place] with her Aggie rai Home Setup: apt building w/ elevator access. She has a tub shower with grab bars, no seat DME: cane, 4WW Baseline ADL/Mobility: Pt was independent w/ ADL's and IADL's, though she doesn't drive. She manages her medications, though does admit to having some difficulty at times related to her vision. She receives driving services 2x/month. She enjoys watching TV and going shopping. She has been receivingVNA for her LE wounds Precautions/Special Considerations: at risk to fall, DNR (code limitations), suprapubic catheter (chronic), carb control diet S: Patient agreed to participate in cognitive assessment. O: Patient participated in MoCA (Pasquale Cognitive Assessment) version 8.2 today. Pasquale Cognitive Assessment (MoCA) Results: Comments Visuospatial/Exec 0/1 Trails Test Lenny a line going from [id number] 0/1 Cube Copy Chair orientation was off in the drawing. 0/1 Clock: Contour Noted to be no contour drawn. 0/1 Clock: Numbers Numbers repeated within a circular format with no clock contour drawn. 0/1 Clock: Hands Hands show nine fifty-five instead of ten past nine. Naming 3/3 (of 3) Attention 1/1 Repeat forward 1/ Repeat backwards 06/22 Tapping for letter A 1/3 Serial 7 Subtraction (3pts=4+; 2pts=2+; 1pt=1) Patient able to subtract from 70 once. Language 1/2 Repeating Sentences Fluency 0/1 Word Naming (1pt=11+ words) Patient able to state 8 words within one minutes time. Abstraction 0/2 Similarities (Associations) Delayed Recall 1/5 (uncued) Orientation 06/22 Month 06/22 Date 06/22 Year 06/22 Day of the week 0 Location 06/22 City +1 Add 1 point if 12 years of education or less Less than 12 years TOTAL 15/30 Score of 26 or greater considered normal Cognition: Behavior / Mood: alert and cooperative Alert and oriented to: person, place, and situation Follows commands: 1 step and requires repetition with multi-step Attention: WFL Safety awareness: decreased insight into deficits Scored 15/30 for MoCA version 8.2 on 11/19 Vision: Glasses for reading wore during session. Endurance:Limited standing tolerance Vitals: VSS on RA Pain: denies pain Education: Pt/family/caregiver education ongoing regarding: Role of occupational therapy/rehabilitation, Transfers, Assistive device/technique, ADL, Safety, Functional Mobility, Activity pacing/Energy conservation, Recommendations, and Discharge planning. Staff Communication: Patient status, treatment, and mobility recommendations discussed with nursing/other staff. ASSESSMENT: . Pt participated in the administration of the [place] Cognitive Assessment, (MOCA). Pt received a score of 15/30, with a score of 26 or greater being considered a normal score. Pt demonstrated impairments in the areas of visuospatial/ executive functioning , attention, language, fluency, abstraction, delayed recall, and orientation. The patient reported having a difficult time remembering the instructions at times, but was able to attend throughout the entire session. At this time, still continue to recommend rehab to maximize her safety and help her train in self-management behaviors unless family can step up and provide necessary assistance. Pt will benefit from ongoing therapeutic interventions to achieve pt's and therapy goals Equipment needs at discharge: walker, front wheeled, shower chair Anticipated Discharge Disposition: swing bed rehabilitation facility Daily schedule / Staff Recommendations: Encourage participation in ADL's by providing set up A on tray table and physical assist only as needed. EPM Level 5: Ambulate, Participate in self care Occupational Therapy Goals: Goals: To be achieved within 2 weeks, by 11/23/23: Patient will be modified independent for standing grooming tasks at the sink. (Working on) Patient will be modified independent with LB dressing. (Progressing) Patient will be modified independent with toileting. (Progressing) Patient will be modified independent with sponge bath or shower. (Working on) Patient will participate in further health literacy and self-management assessment. Therapy Frequency (OT): 2-3 times/wk Total Minutes, Occupational Therapy: 25 (cog x2 ([id number])) Pager: [phone] Kendra Peterson, OT 11/21/2023 Occupational Therapy Rehabilitation Department * Siria Peres, PSYCHOLOGICAL OPERATIONS SPECIALIST - 11/20/2023 11:15 AM EDT Follow Up Diabetes Consult Patient Interview Blood glucose values and insulin use reviewed. Lantus reduced for tomorrow with fasting BG of 72. Checks are 4 x daily, Will add a one time overnight POC BG check to evaluate basal coverage. Still spiking after meals suggesting need for tighter carb ratio, will adjust to 1:4. Previously tolerated this carb ratio from previous notes. Objective Temp: [36.3 ??C (97.3 ??F)-36.9 ??C (98.4 ??F)] Heart Rate: [87-96] Resp: [16-19] BP: (101-137)/(60-76) SpO2: [96 %-98 %] Heart Rate from SpO2: [85 bpm-98 bpm] Current Regimen from previous note Lantus: DECREASE 36 units Lispro 1:5 insulin to carbohydrate ratio Lispro for correction q 4 hours based on a correction factor of 20 Diet CC Monitoring: ADJUST correction from TID to 4 x daily ac/hs Recent Glucose Levels Recent Labs 11/20/23 1113 11/20/23 0734 11/19/23 2122 11/19/23 1531 11/19/23 1140 11/19/23 0729 11/18/23 1934 11/18/23 1716 11/18/23 1526 11/18/23 1250 11/18/23 1103 11/18/23 0732 POCGLU 137 77 207* 135 212* 79 95 152 268* 240* 258* 109 ASSESSMENT Patient is a 73 y.o. years old female with PMH significant for DM (Last A1C of 13.1%) who was admitted on 11/05/2023 for DKA. Diabetes uncontrolled and currently complicated by unknown insulin requirements. Currently with variability of blood glucose levels while hospitalized requiring adjustment of insulin regimen and DM medications. We do not think she met criteria for DKA-she did have HHS and osm was 315 at admit Lantus reduced for tomorrow with fasting BG of 72. Checks are 4 x daily, Will add a one time overnight POC BG check to evaluate basal coverage. Still spiking after meals suggesting need for tighter carb ratio, will adjust to 1:4. Previously tolerated this carb ratio from previous notes. PLAN - Adjustments made One time overnight BG check Lantus: DECREASE 34 units Lispro 1:5--> 1:4 insulin to carbohydrate ratio Lispro for correction q 4 hours based on a correction factor of 20 Diet CC Monitoring: correction from TID ac Discharge Considerations: Getting ready for home: She may restart her GLP-1 at the start dose (Trulicity back to 0.75 mg weekly dose from her previous 1.5-ask PCP to do that PA) She may restart her Farxiga at D/C as long as is eating and drinking Her Long acting insulin (Lantus) is 30 units in the night time-this is not AM Metformin is 1000 mg PO BID-she could restart at half doses when goes home Uses humalog 12 units at lunch-suggest using 5-15 based upon coverage once her SGLT-2 is up and working Has worked with [address] up in [facility] and should re-engage Siria Peres APRN [facility] Endocrinology Diabetes Management Pager [phone] Weekends please page [phone] * Jonathan Fall PTA - 11/20/2023 10:53 AM EDT Physical Therapy Intervention Note Treatment Number PT: 4 Total duration of encounter: 15 days Patient profile: Hope Yee is a 73 y.o. female with PMH of HTN, atrial fibrillation on rivaroxaban, poorly-controlled T2DM, CKD, chronic indwelling suprapubic catheter, and prior TIA presenting in transfer from [facility] with bradycardia, hypotension, and hyperglycemia. Interval History: per Hospital Medicine note 11/19 BGs okay overnight, POC glucose low of 79 in the AM. Appropriate output from SPT per nursing with appropriate positioning of catheter. Feeling well this morning. No chest pain, sob, abdominal pain, flank pain, dysuria. Concerned aboutfinances and where she will go upon discharge. Social History: Patient lives alone with her parrot Echo. Lives in [facility] in apt building with elevator access. Normally uses elevator. Uses cane vs 4WW (when carrying things). Does not drive - uses senior bus for appts, groceries etc. Limited social supports. Enjoys watching TV and going shopping. Managesown medications. Some bowel incontinence/urgency. Has VNA (nursing only) for LE wounds. Dtr caring for Zanarot at the moment at her home. Dtr lives 40 miles away, son lives in [place] Precautions/Special Considerations: DNR/limited code, fall risk, PIV, suprapubic catheter, carb control diet Mobility and Positioning Recommendations: Pt. to utilize FWW w/ SBA for transfers and ambulation with nursing. Please encourage up to chair for meal times as able. EPM Level 5: Ambulate, Participate in self care Subjective: My daughter is taking care of my parrot right now Objective: Pt seen for physical therapy treatment today and presented as follows: Pain: No report of pain Vital Signs: VSS on RA Behavior / Mood: alert and cooperative, pleasant, simple Bed Mobility: Supine <> Sit: N/A, pt already OOB and remains in recliner chair at end of session Transfers: Sit to Stand: supervised from recliner chair with FWW. Performed x1 Stand to Sit: supervised with FWW to recliner chair, use of UE for eccentric control Bed to Chair: N/A Gait: Distance: 300 ft Device Used: FWW Level of Assist: SBA Gait Comments: no overt LOB, slow tiffany and gait speed, forward flexed posture Stairs: Ascent/Descent 6 step/stairs with single railing to B railing, step by step gait, min A initially to CGA, cues for techniques. Slightly unsteady Balance: Sitting Static: good Sitting Dynamic: good Standing Static: fair with FWW, SBA Standing Dynamic / Gait: fair with FWW, SBA Education: patient educated on role of therapy, safety, therex, use of protective foot wear, use of walker. Ongoing activity, and DC planning with fair understanding/demonstration. Pt left sitting in recliner chair with RN at bedside, call puckett in reach, all needs met, following visit. Assessment: Hope Yee was seen today for physical therapy intervention. Pt alert and highlymotivated to participated in therapy interventions. Pt demos ability to mobilize fairly well aroundthe unit with FWW with SBA level. No LOB noted with gait training. Pt ambulated up/down 6 step/stairs, she needed min A initially at first few steps up and then CGA. Based on current finding, recommen d home health PT/OT/RN and social work for DC. Would benefit from at least daily check in from family members/social supports. Would also suggest eventual transition to more assisted type living setting. Will continue to follow up with patient for ongoing PT if remains hospitalized for extended period. Pt will benefit from skilled therapy services throughout hospitalization to promote safety, independence, and provide developmental support/caregiver education. Discharge Recommendations: Based on the current findings, Anticipated Discharge Disposition (PT): home with daily check in, home with home health when medically ready for hospital discharge. *recommend resources/looking into [facility] Discharge recommendation is based on the patient's current physical impairments, prior functional status, potential to return to prior level of function, patient motivation, reported home support, potential for functional gains, current level of endurance, reported home environment and anticipated trajectory of progress and may change based on patient progress during this hospitalization. Consult Recommendations: Social Work - needs resources due to low income and can't afford glasses etc. Lives alone with minimal social supports. Diabetes team - education in management Wound care - for LE Equipment Needs: Anticipated Equipment Needs at Discharge (PT): None (has all DME) Inpatient/Acute Care PT Plan: Therapy Frequency (PT): 1-2 more times for therapy. x Consult service will continue to follow patient. PT signing off. Recommendations above, page if further consultation required. Goals: Goals ongoing as of 11/20/23 unless otherwise noted Goals: To be achieved by 11/21/23: Pt. to demonstrate knowledge of safety limitations and precautions Pt. to demonstrate understanding of appropriate exercises. Pt. to perform supine to/from sitting EOB with modified independence MET 11/10 Pt. to perform sit to/from stand transfers with supervision and LRAD MET 11/10 Pt. to ambulate 150 feet with supervision and least restrictive assistive device Pt. to ambulate up/down 3 step/stairs using single railing and/or cane with SBA (not essential for DC home but should be able to for emergency purposes) -Progressing Pt to tolerate upright positioning with VSS MET 11/10 Total Minutes, Physical Therapy: 18 ([id number]) Billing Code: [email or web address] Thank you for this consult. Jonathan Fall PTA Pager: [phone] Physical Therapy Inpatient Rehabilitation Department * Angelika Woody P - 11/20/2023 8:57 AM EDT Inpatient Medicine Progress Note Interval Events/Subjective: BGs okay overnight, POC glucose low of 79 in the AM. Appropriate output from SPT per nursing with appropriate positioning of catheter. Feeling well this morning. No chest pain, sob, abdominal pain, flank pain, dysuria. Concerned aboutfinances and where she will go upon discharge. Physical Exam: Last value Range last 24 hrs Temperature Temp: 36.3 ??C (97.3 ??F) Temp: [36.3 ??C (97.3 ??F)-36.9 ??C (98.4 ??F)] Heart Rate Heart Rate: 96 Heart Rate: [87-96] Blood Pressure BP: 114/75 BP: (101-137)/(60-76) Respiratory Rate Resp: 17 Resp: [16-19] SpO2 SpO2: 97 % SpO2: [96 %-98 %] Intake/Output Summary (Last 24 hours) at 11/20/2023 0857 Last data filed at 11/20/2023 0737 Gross per 24 hour Intake 390 ml Output 1920 ml Net -1530 ml - nursing notes and vitals reviewed Constitutional: NAD, sitting in chair eating breakfast Neck: No JVD Respiratory: no wheezing or crackles CV: irregular, no murmurs GI: soft, NT, ND. Ext: irregular radial pulses 2+ Lymph: no peripheral edema, wearing compression bandages Musculoskeletal: no gross deformities noted Neuro: A+O x3, no neuro deficits noted Skin/Lines: multiple chronic wounds, sacral ulcer with dressing in place, suprapubic catheter in place draining clear urine Labs: Labs reviewed and notable for: - POC glucose: 77 - 212, lab gluc 72 - WBC 9 (from 9.8) - Hb 10.0 (stable 9-10 during this admission) - Lytes normal - Cr 0.95, BUN 26 - Mag 0.73 Microbiology: BCx: NGTD UCx: Not done Pertinent radiology/diagnostic studies: NA Assessment: Hope Yee is a 73 y.o. female with PMH of HTN, atrial fibrillation on rivaroxaban, poorly-controlled T2DM, CKD, chronic indwelling suprapubic catheter, and prior TIA presenting in transfer from [facility] with bradycardia, hypotension, and hyperglycemia. Plan: #Bradycardia - resolved #Atrial fibrillation # Elevated BNP #Hx of ?tachybrady syndrome HR in the 30s-40s at [facility], meds were held and temporary pacing wire was placed. HR normalized to 90s-100s after hyperglycemia tx. Temp pacing wire removed 11/04. Bradycardia was likely the result of accumulation of beta blockade and calcium channel blockade in the setting of a prerenal MELVA. Slowly uptrating home medications (home dose of metoprolol succinate 100mg BID and diltiazem 300mg QD). Anticoagulated on home dose of rivaroxaban, reduced on 11/17 due to decreased renal function. EP consulted, not recommending pacemaker placement at this time. - Holding home diltiazem - 300mg metoprolol succinate QD, titrate as needed - Rivaroxaban 20 mg nightly #MELVA - improving, likely prerenal #Hyperkalemia #Pseudohyponatremia Her blood sugars have been very elevated at home, seemingly in the 400s-600s quite frequently, which would have led to an osmotic diuresis. All of this would have contributed to a prerenal MELVA and associated hyperkalemia. Cr 1.43 on admission, now improved to 0.91. Seems most likely that her hyponatremia was pseudohyponatremia in setting of hyperglycemia. Discontinued daily lokelma on 11/07 due tonormalizing potassium. On 11/09, increasing BUN and O>I, although normal creatinine. On 11/10, increasing creatinine >0.3 over 48 hours, meeting the definition for MELVA, coupled with decreased UOPand bladder scan showing 905mL although interpretation difficult in the context of morbid obesity. CT showed distended bladder with SPT in correct place. Urology consulted, recommended bladder decompression with barber and replaced SPT on 11/11. Creatinine and BUN intermittently elevated in the setting of limited PO intake and dehydration, tends to resolve with fluid administration and catheter repositioning. - Urology consulted, appreciate recs - Daily BMP - Monitor for retention #Hyperglycemia #Probable HHS #Poorly-controlled T2DM Glucose in the 500s-700s at presentation, more likely HHS than DKA due to normal AG and no ketones.Last A1C 13.1. Insulin gtt started then stopped afternoon of 11/04, restarted in evening then stopped on 11/05 morning. This episode seems to have been precipitated by both a course of diarrhea due to a new medication along with missing multiple doses of her medications per week. - Diabetes management following; appreciate the assistance - Holding home Trulicity, Jardiance, and metformin - 1:4 mealtime and snack insulin, added snack insulin on 11/08. 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 Unclear whether she was having symptoms, but she did endorse possible fevers. Urinalysis likely shows contamination over infection, but patient is athigh infection risk with indwelling catheter. Completed 5-day course of ceftriaxone 2g daily 11/04-11/08. Changed suprapubic catheter 11/05, again on 11/11. #Wounds - Followed peripherally by wound care #Vitamin B12 - Started B12 oral supplementation on 11/09 #Cognitive Impairment Patient scored MoCA 16/30 on 11/17, indicating moderate cognitive impairment although baseline is unknown. This is likely the patient's new baseline rather than a temporary state in the setting of hospitalization as patient has not been experiencing delirium. # Housekeeping Diet: Carb-controlled full diet Family Update: NA DVT: Xarelto Code Status: Do NOT Attempt CPR - Inpatient PCP: KATHLEEN Retana at [phone] Angelika Varneret Pager # [phone] * Idania Matthews MD - 11/19/2023 5:29 PM EDT Hospital Medicine Attending Daily Progress Note Admit Date: 11/05/2023 Hospital Day 14 days Active Hospital Problems Diagnosis DKA (diabetic ketoacidosis) Permanent atrial fibrillation Resolved Hospital Problems No resolved problems to display. 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 2 diabetes mellitus, with fat layer exposed Seronegative rheumatoid arthritis Heart murmur Gastroesophageal reflux Pseudophakia, both eyes Diabetic peripheral neuropathy Hypertension, essential, benign Hyperlipidemia SVT (supraventricular tachycardia) Gait instability Seronegative arthritis Osteoarthrosis, unspecified whether generalized or localized, pelvic region and thigh Osteoarthrosis, unspecified whether generalized or localized, lower leg Osteoarthrosis, unspecified whether generalized or localized, ankle and foot Nevus History of malignant melanoma History of basal cell carcinoma Personal history of malignant melanoma Rosacea Basal cell carcinoma of back Malignant melanoma Inpatient Medications: Scheduled insulin glargine (Lantus;Semglee) (100 unit/mL) subcutaneous injection 36 Units Subcutaneous Daily rivaroxaban 20 mg Oral Daily with dinner insulin lispro 1-6 Units Subcutaneous TID AC insulin lispro 0-20 Units Subcutaneous TID WC metoprolol succinate XL 300 mg Oral Daily cyanocobalamin (Vitamin B-12) 1,000 mcg Oral Daily sodium chloride 0.9 % (flush) 5 mL Intravenous BID Continuous infusions: PRN: acetaminophen, calcium carbonate, insulin lispro, glucose 40% oral geL OR dextrose OR glucagon, sodium chloride 0.9 % (flush), lidocaine Interval History Decreased insulin to 40U lantus and decreased SSI. Glc 39 at 1am and 79 at 7am She is asking about discharge planning and what has been heard from her son about MA. Also if someone cleaned out her apt. No other new physical complaints. Physical Exam Vitals Range last 24 hrs Temperature Temp: [36.1 ??C (97 ??F)-36.6 ??C (97.9 ??F)] Heart Rate Heart Rate: [87-96] Blood Pressure BP: (102-152)/(60-80) Respiratory Rate Resp: [15-18] SpO2 SpO2: [91 %-98 %] Intake/Output Summary (Last 24 hours) at 11/19/2023 1729 Last data filed at 11/19/2023 1533 Gross per 24 hour Intake 550 ml Output 2645 ml Net -2095 ml No data found. Body mass index is 30.77 kg/m??. Physical Exam General: NAD, oriented HEENT: Anicteric sclera CV: irreg irreg Lungs: CTA bilaterally Abd: Non-tender Ext: no edema, stockings on LABS: Last 3 wbc, hgb, hct plt Recent Labs 11/19/23 0148 11/18/23 0521 11/17/23 0513 WBC 9.8* 9.9* 8.6 HGB 9.6* 9.9* 10.6* HCT 32.7* 33.4* 36.3 PLATELET 534* 472* 524* Last 3 Lytes Recent Labs 11/19/23 0148 11/18/23 0521 11/17/23 0513 NA 138 135 139 K 4.4 4.9 4.7 CL 104 101 103 CO2 BUN 32* 35* 25* CREATININE 0.91 1.32* 0.96 Last 3 LFTs Recent Labs 11/09/23 0000 11/05/23 0335 AST 20 268* ALT 47* 174* ALKPHOS 76 119* BILITOT <0.2* 0.3 BILIDIR <0.1 0.2 FSBG Trend Recent Labs 11/19/23 1531 11/19/23 1140 11/19/23 0729 11/18/23 1934 11/18/23 1716 11/18/23 1526 11/18/23 1250 11/18/23 1103 11/18/23 0732 11/17/23 2336 POCGLU 135 212* 79 95 152 268* 240* 258* 109 109 MICRO: No results for input(s): URINECULTURE in the last 720 hours. No results for input(s): GRAMSTAIN, BFCX, LOWERRESPCX, TISSUECX in the last 720 hours. Recent Labs 11/05/23 0400 11/05/23 0415 BLOODCX No growth at 5 days. No growth at 5 days. ECG: Recent Labs 11/15/23 1456 DIAGLINE Atrial fibrillation Low voltage QRS Abnormal ECG When compared with ECG of 05-NOV-2023 03:10, No significant change was found QTCCALC 454 VASCULAR: Recent Labs 11/09/23 1643 VBTEXTRPT Department: Vascular Surgery Lab Patient: [id number] (HOPE YEE) CPT: 85933 Referring Physician: JOAQUIM GEORGES Phone: Indications: Chronic LE wound ? perfusion Diabetes mellitus: Yes Findings: Right Pressure (mm Hg) Waveform TBI Brachial Artery 134 Dorsalis Pedis (Ankle) Artery >254 Triphasic Posterior Tibial (Ankle) Artery >254 Triphasic Great Toe 113 0.84 Left Pressure (mm Hg) Waveform TBI Brachial Artery IV Dorsalis Pedis (Ankle) Artery >254 Triphasic Posterior Tibial (Ankle) Artery >254 Triphasic Great Toe 111 0.83 Interpretation: RIGHT: No significant lower extremity arterial [...] ABIs with change from previous value: Date RIGHT DP RIGHT PT RT GR TOE RT Sec TOE 1.21 1.29 0.75 ---- Current ---- ---- 0.84(+.09) ---- Date LEFT DP LEFT PT LT GR TOE LT Sec TOE 1.21 1.22 0.76 ---- Current ---- ---- 0.83(+.07) ---- End of Report IMAGING: Results for orders placed or performed during the hospital encounter of 11/05/23 XR Chest One View (Exam End: 11/05/2023 3:58 AM) Result Value WORKSTATION ID [id number] Impression Right IJ central venous catheter with tip projecting over the right atrium. I have personally reviewed the image(s) and the resident's interpretation and agree with the findings, Emeka Wolfe MD at 11/05/2023 4:37 AM Thank you for letting us participate in the care of this patient. If you are a health care provider and have any questions regarding this report, please contact the number below. For patients who have questions please contact the health adult day care worker that requested your imaging first. Abdomen & Pelvis wo Contrast (Exam End: 11/11/2023 12:20 PM) Result Value WORKSTATION ID [id number] Impression Appropriate position of the suprapubic catheter, however, persistent moderate bladder distention. Possible catheter obstruction/clog; correlate with ability to flush catheter. The overall appearance is similar to 2021 when the catheter was in appropriate position and the bladder was distended. Thank you for letting us participate in the care of this patient. If you are a health care provider and have any questions regarding this report, please contact the number below. For patients who have questions please contact the health adult day care worker that requested your imaging first. Electronically signed by: SUNSHINE ALCOCER MD, [facility] ([phone]), at 11/11/2023 1:06 PM TTE 11/05/23 Interpretation Summary Normal left ventricular size with hyperdynamic systolic function. Ejection fraction is visually 70%. There are no regional wall motion abnormalities. The right ventricle is mildly dilated with normal systolic function. There is no significant valvular disease. Compared to prior echo from 01/08/18, there are no major changes. ASSESSMENT and PLAN: Hope is a 73 y/o with HTN, AF on rivaroxaban, poorly-controlled T2DM (A1C 13), CKD, chronic indwelling suprapubic catheter requiring exchange this admission, and prior TIA presenting in transfer from [facility] with bradycardia, hypotension, and hyperglycemia. Hyperglycemia improving but with some hypoglycemia and adjusting insulin - appreciate DM assistance. HR overall improved. Safe for home alone per PT/OT with daily check-ins and explore daughter if can help support (for DMmanagement and rate control/medications) as worry about her managing her insulin. Son is reportedlyworking on getting her into a [facility] near him in [place]. Anticipate if daughter could stay withher while son explores [facility] that may be viable but continue to explore. 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 #Atrial fibrillation - consulted EP earlier in admit, no ppm for now - Temp pacing wire removed 11/04 - Holding home diltiazem - metop succinate qD, uptitrating for goal HR < 110 at rest - increased to 300mg 11/17 and monitor - consider 200mg BID - Rivaroxaban 20 mg nightly #MELVA obstructive 2/2 malfunctioning SPC, resolved #MELVA, suspect prerenal #Hyperkalemia, possibly 2/2 labile hyperglyclemia - Lokelma intermittent last week - continue to monitor off - ctm K and Cr - Urology consult, tray recs, replaced SPC 11/11 - off mIVF #Hyperglycemia #Probable HHS, resolved #Poorly-controlled T2DM Last A1C 13.1 - Diabetes management following; appreciate recs - Holding home Trulicity, Jardiance, and metformin - SSI and meal associated - adjust as needed - Hypoglycemia on higher lantus - decrease 40U to 36U #UTI, possibly associated with suprapubic catheter, in place for prior hx recurrent urinary retention - s/p Ceftriaxone 2g daily for 5 days (completed 11/08) # Sacral decub ulcer: - appreciate wound care consult #Housekeeping: - DVT PPx: Home rivaroxaban - Diet: Carb Control diet 60/60/75 CHO counting level 2 - Level of care: Med/ surg - Code Status: DNR but pre-arrest intubation is permitted Team Pager( Coverage 12/01): #[phone] PCP: KATHLEEN Retana [phone] IPI Certification I certify that I am a D-H credentialed attending provider with admitting privileges and that the patient meets or has met medical necessity to require an inpatient IPI level of care meeting a minimumof two midnights or is on the CMS inpatient only procedure list (status C) due to: acute kidney injury necessitating close monitoring of fluid balance such as intravenous fluids and/or titration of medication to achieve optimal effect and minimize the chance of immediate or severe side effects Idania Matthews MD 11/19/2023 * Angelika Woody P - 11/19/2023 7:55 AM EDT Inpatient Medicine Progress Note Interval Events/Subjective: BGs okay overnight, POC glucose low of 79 in the AM. Appropriate output from SPT per nursing with appropriate positioning of catheter. Feeling well this morning. No chest pain, sob, abdominal pain, flank pain, dysuria. Concerned that her belongings have been removed from her apartment per report from a neighbor. Physical Exam: Last value Range last 24 hrs Temperature Temp: 36.6 ??C (97.9 ??F) Temp: [36.1 ??C (97 ??F)-36.7 ??C (98.1 ??F)] Heart Rate Heart Rate: 91 Heart Rate: [89-91] Blood Pressure BP: 126/73 BP: (110-152)/(64-80) Respiratory Rate Resp: 15 Resp: [15-18] SpO2 SpO2: 95 % SpO2: [91 %-97 %] Intake/Output Summary (Last 24 hours) at 11/19/2023 0755 Last data filed at 11/19/2023 0726 Gross per 24 hour Intake 325 ml Output 2825 ml Net -2500 ml - nursing notes and vitals reviewed Constitutional: NAD, sitting in chair eating breakfast Neck: No JVD Respiratory: no wheezing or crackles CV: irregular, no murmurs GI: soft, NT, ND. Ext: irregular radial pulses 2+ Lymph: no peripheral edema, wearing compression bandages Musculoskeletal: no gross deformities noted Neuro: A+O x3, no neuro deficits noted Skin/Lines: multiple chronic wounds, sacral ulcer with dressing in place, suprapubic catheter in place draining clear urine Labs: Labs reviewed and notable for: - POC glucose: 79 - 268, lab gluc 59 - WBC 9.8 (from 9.9) - Hb 9.6 (stable 9-10 during this admission) - Lytes normal - normalizing Cr 0.91 (from 1.32), elevated BUN 32 - Mag 0.71 Microbiology: BCx: NGTD UCx: Not done Pertinent radiology/diagnostic studies: NA Assessment: Hope O Yee is a 73 y.o. female with PMH of HTN, atrial fibrillation on rivaroxaban, poorly-controlled T2DM, CKD, chronic indwelling suprapubic catheter, and prior TIA presenting in transfer from [facility] with bradycardia, hypotension, and hyperglycemia. Plan: #Bradycardia - resolved #Atrial fibrillation # Elevated BNP #Hx of ?tachybrady syndrome HR in the 30s-40s at [facility], meds were held and temporary pacing wire was placed. HR normalized to 90s-100s after hyperglycemia tx. Temp pacing wire removed 11/04. Bradycardia was likely the result of accumulation of beta blockade and calcium channel blockade in the setting of a prerenal MELVA. Slowly uptrating home medications (home dose of metoprolol succinate 100mg BID and diltiazem 300mg QD). Anticoagulated on home dose of rivaroxaban, reduced on 11/17 due to decreased renal function. EP consulted, not recommending pacemaker placement at this time. - Holding home diltiazem - 300mg metoprolol succinate QD, titrate as needed - Rivaroxaban 20 mg nightly #MELVA - improving, likely prerenal #Hyperkalemia #Pseudohyponatremia Her blood sugars have been very elevated at home, seemingly in the 400s-600s quite frequently, which would have led to an osmotic diuresis. All of this would have contributed to a prerenal MELVA and associated hyperkalemia. Cr 1.43 on admission, now improved to 0.91. Seems most likely that her hyponatremia was pseudohyponatremia in setting of hyperglycemia. Discontinued daily lokelma on 11/07 due tonormalizing potassium. On 11/09, increasing BUN and O>I, although normal creatinine. On 11/10, increasing creatinine >0.3 over 48 hours, meeting the definition for MELVA, coupled with decreased UOPand bladder scan showing 905mL although interpretation difficult in the context of morbid obesity. CT showed distended bladder with SPT in correct place. Urology consulted, recommended bladder decompression with barber and replaced SPT on 11/11. Creatinine and BUN intermittently elevated in the setting of limited PO intake and dehydration, tends to resolve with fluid administration and catheter repositioning. - Urology consulted, appreciate recs - Daily BMP - Monitor for retention #Hyperglycemia #Probable HHS #Poorly-controlled T2DM Glucose in the 500s-700s at presentation, more likely HHS than DKA due to normal AG and no ketones.Last A1C 13.1. Insulin gtt started then stopped afternoon of 11/04, restarted in evening then stopped on 11/05 morning. This episode seems to have been precipitated by both a course of diarrhea due to a new medication along with missing multiple doses of her medications per week. - Diabetes management following; appreciate the assistance - Holding home Trulicity, Jardiance, and metformin - 1:5 mealtime and snack insulin, added snack insulin on 11/08. 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 Unclear whether she was having symptoms, but she did endorse possible fevers. Urinalysis likely shows contamination over infection, but patient is athigh infection risk with indwelling catheter. Completed 5-day course of ceftriaxone 2g daily 11/04-11/08. Changed suprapubic catheter 11/05, again on 11/11. #Wounds - Followed peripherally by wound care #Vitamin B12 - Started B12 oral supplementation on 11/09 #Cognitive Impairment Patient scored MoCA 16/30 on 11/17, indicating moderate cognitive impairment although baseline is unknown. This is likely the patient's new baseline rather than a temporary state in the setting of hospitalization as patient has not been experiencing delirium. # Housekeeping Diet: Carb-controlled full diet Family Update: NA DVT: Xarelto Code Status: Do NOT Attempt CPR - Inpatient PCP: KATHLEEN Retana at [phone] Angelika Woody Pager # [phone] * Siria Peres APRN - 11/19/2023 7:10 AM EDT Images from the original note were not included. Follow Up Diabetes Consult Patient Interview Blood glucose values and insulin use reviewed. Low BG early am suggesting basal insulin dosing is too strong though pt still spiking BGs following meals with strong insulin to carb ratio. TDD insulinyesterday was 75 units. Suggest a decrease in TDD by 10% and administering 50% of this as basal insulin - adjusting glargine dose to 34 units. Objective Temp: [36.1 ??C (97 ??F)-36.7 ??C (98.1 ??F)] Heart Rate: [89-98] Resp: [16-18] BP: (110-152)/(64-80) SpO2: [91 %-97 %] Heart Rate from SpO2: [82 bpm-96 bpm] Current Regimen from previous note 1. Glargine 40 units in the morning 2.Lispro 1unit: 8 gm carb ratio for each meal and snack 3.Lispro 1:20>140 Recent Glucose Levels Recent Labs 11/18/23 1934 11/18/23 1716 11/18/23 1526 11/18/23 1250 11/18/23 1103 11/18/23 0732 11/17/23 2336 11/17/23 1635 11/17/23 1349 11/17/23 1144 11/17/23 0808 11/17/23 0350 POCGLU 95 152 268* 240* 258* 109 109 212* 310* 259* 117 69 ASSESSMENT Patient is a 73 y.o. years old female with PMH significant for DM (Last A1C of 13.1%) who was admitted on 11/05/2023 for DKA. Diabetes uncontrolled and currently complicated by unknown insulin requirements. Currently with variability of blood glucose levels while hospitalized requiring adjustment of insulin regimen and DM medications. We do not think she met criteria for DKA-she did have HHS and osm was 315 at admit Low BG early am suggesting basal insulin dosing is too strong though pt still spiking BGs followingmeals with strong insulin to carb ratio. TDD insulin yesterday was 75 units. Suggest a decrease in TDD by 10% and administering 50% of this as basal insulin - adjusting glargine dose to 34 units. PLAN - suggested - no changes made Lantus: DECREASE 36 units Lispro 1:5 insulin to carbohydrate ratio Lispro for correction q 4 hours based on a correction factor of 20 Diet CC Monitoring: ADJUST correction from TID to 4 x daily ac/hs Discharge Considerations: Getting ready for home: She may restart her GLP-1 at the start dose (Trulicity back to 0.75 mg weekly dose from her previous 1.5-ask PCP to do that PA) She may restart her Farxiga at D/C as long as is eating and drinking Her Long acting insulin (Lantus) is 30 units in the night time-this is not AM Metformin is 1000 mg PO BID-she could restart at half doses when goes home Uses humalog 12 units at lunch-suggest using 5-15 based upon coverage once her SGLT-2 is up and working Has worked with [facility] up [facility] and should re-engage Siria Peres APRN [facility] [place] [facility] Diabetes Management Pager [phone] Weekends please page [phone] * Idania Matthews MD - 11/18/2023 6:17 PM EDT Hospital Medicine Attending Daily Progress Note Admit Date: 11/05/2023 Hospital Day 13 days Active Hospital Problems Diagnosis DKA (diabetic ketoacidosis) Permanent atrial fibrillation Resolved Hospital Problems No resolved problems to display. 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 2 diabetes mellitus, with fat layer exposed Seronegative rheumatoid arthritis Heart murmur Gastroesophageal reflux Pseudophakia, both eyes Diabetic peripheral neuropathy Hypertension, essential, benign Hyperlipidemia SVT (supraventricular tachycardia) Gait instability Seronegative arthritis Osteoarthrosis, unspecified whether generalized or localized, pelvic region and thigh Osteoarthrosis, unspecified whether generalized or localized, lower leg Osteoarthrosis, unspecified whether generalized or localized, ankle and foot Nevus History of malignant melanoma History of basal cell carcinoma Personal history of malignant melanoma Rosacea Basal cell carcinoma of back Malignant melanoma Inpatient Medications: Scheduled rivaroxaban 15 mg Oral Daily with dinner insulin glargine (Lantus;Semglee) (100 unit/mL) subcutaneous injection 40 Units Subcutaneous Daily insulin lispro 1-6 Units Subcutaneous TID AC insulin lispro 0-20 Units Subcutaneous TID WC metoprolol succinate XL 300 mg Oral Daily cyanocobalamin (Vitamin B-12) 1,000 mcg Oral Daily sodium chloride 0.9 % (flush) 5 mL Intravenous BID Continuous infusions: PRN: acetaminophen, calcium carbonate, insulin lispro, glucose 40% oral geL OR dextrose OR glucagon, sodium chloride 0.9 % (flush), lidocaine Interval History Decreased insulin to 40U lantus and decreased SSI. She is asking about discharge planning and what has been heard from her son about MA. No f/c, n/v. Legs can ache. Physical Exam Vitals Range last 24 hrs Temperature Temp: [36.2 ??C (97.2 ??F)-36.9 ??C (98.4 ??F)] Heart Rate Heart Rate: [89-98] Blood Pressure BP: (110-128)/(64-83) Respiratory Rate Resp: [16-18] SpO2 SpO2: [94 %-97 %] Intake/Output Summary (Last 24 hours) at 11/18/2023 1817 Last data filed at 11/18/2023 1524 Gross per 24 hour Intake 515 ml Output 1000 ml Net -485 ml No data found. Body mass index is 30.77 kg/m??. Physical Exam General: NAD, oriented HEENT: Anicteric sclera CV: irreg irreg Lungs: CTA bilaterally Abd: Non-tender Ext: no edema, stockings on LABS: Last 3 wbc, hgb, hct plt Recent Labs 11/18/23 0521 11/17/23 0513 11/16/23 0322 WBC 9.9* 8.6 8.1 HGB 9.9* 10.6* 9.9* HCT 33.4* 36.3 33.9* PLATELET 472* 524* 555* Last 3 Lytes Recent Labs 11/18/23 0521 11/17/23 0513 11/16/23 0322 NA 135 139 140 K 4.9 4.7 4.3 CL 101 103 105 CO2 24 23 25 BUN 35* 25* 19* CREATININE 1.32* 0.96 0.71 Last 3 LFTs Recent Labs 11/09/23 0000 11/05/23 0335 AST 20 268* ALT 47* 174* ALKPHOS 76 119* BILITOT <0.2* 0.3 BILIDIR <0.1 0.2 FSBG Trend Recent Labs 11/18/23 1716 11/18/23 1526 11/18/23 1250 11/18/23 1103 11/18/23 0732 11/17/23 2336 11/17/23 1635 11/17/23 1349 11/17/23 1144 11/17/23 0808 POCGLU 152 268* 240* 258* 109 109 212* 310* 259* 117 MICRO: No results for input(s): URINECULTURE in the last 720 hours. No results for input(s): GRAMSTAIN, BFCX, LOWERRESPCX, TISSUECX in the last 720 hours. Recent Labs 11/05/23 0400 11/05/23 0415 BLOODCX No growth at 5 days. No growth at 5 days. ECG: Recent Labs 11/15/23 1456 DIAGLINE Atrial fibrillation Low voltage QRS Abnormal ECG When compared with ECG of 05-NOV-2023 03:10, No significant change was found QTCCALC 454 VASCULAR: Recent Labs 11/09/23 1643 VBTEXTRPT Department: Vascular Surgery Lab Patient: [id number] (HOPE YEE) CPT: 22818 Referring Physician: JOAQUIM GEORGES Phone: Indications: Chronic LE wound ? perfusion Diabetes mellitus: Yes Findings: Right Pressure (mm Hg) Waveform TBI Brachial Artery 134 Dorsalis Pedis (Ankle) Artery >254 Triphasic Posterior Tibial (Ankle) Artery >254 Triphasic Great Toe 113 0.84 Left Pressure (mm Hg) Waveform TBI Brachial Artery IV Dorsalis Pedis (Ankle) Artery >254 Triphasic Posterior Tibial (Ankle) Artery >254 Triphasic Great Toe 111 0.83 Interpretation: RIGHT: No significant lower extremity arterial [...] ABIs with change from previous value: Date RIGHT DP RIGHT PT RT GR TOE RT Sec TOE 1.21 1.29 0.75 ---- Current ---- ---- 0.84(+.09) ---- Date LEFT DP LEFT PT LT GR TOE LT Sec TOE 1.21 1.22 0.76 ---- Current ---- ---- 0.83(+.07) ---- End of Report IMAGING: Results for orders placed or performed during the hospital encounter of 11/05/23 XR Chest One View (Exam End: 11/05/2023 3:58 AM) Result Value WORKSTATION ID [id number] Impression Right IJ central venous catheter with tip projecting over the right atrium. I have personally reviewed the image(s) and the resident's interpretation and agree with the findings, Emeka Wolfe MD at 11/05/2023 4:37 AM Thank you for letting us participate in the care of this patient. If you are a health care provider and have any questions regarding this report, please contact the number below. For patients who have questions please contact the health adult day care worker that requested your imaging first. Abdomen & Pelvis wo Contrast (Exam End: 11/11/2023 12:20 PM) Result Value WORKSTATION ID [id number] Impression Appropriate position of the suprapubic catheter, however, persistent moderate bladder distention. Possible catheter obstruction/clog; correlate with ability to flush catheter. The overall appearance is similar to 2021 when the catheter was in appropriate position and the bladder was distended. Thank you for letting us participate in the care of this patient. If you are a health care provider and have any questions regarding this report, please contact the number below. For patients who have questions please contact the health adult day care worker that requested your imaging first. Electronically signed by: SUNSHINE ALCOCER MD, [facility] ([phone]), at 11/11/2023 1:06 PM TTE 11/05/23 Interpretation Summary Normal left ventricular size with hyperdynamic systolic function. Ejection fraction is visually 70%. There are no regional wall motion abnormalities. The right ventricle is mildly dilated with normal systolic function. There is no significant valvular disease. Compared to prior echo from 01/08/18, there are no major changes. ASSESSMENT and PLAN: Hope is a 73 y/o with HTN, AF on rivaroxaban, poorly-controlled T2DM (A1C 13), CKD, chronic indwelling suprapubic catheter requiring exchange this admission, and prior TIA presenting in transfer from [facility] with bradycardia, hypotension, and hyperglycemia. Hyperglycemia improving but with some hypoglycemia and adjusting insulin - appreciate DM assistance. HR overall improved. Safe for home alone per PT/OT with daily check-ins and explore daughter if can help support (for DMmanagement and rate control/medications). Son is reportedly working on getting her into a [facility] near him in [place]. Anticipate if daughter could stay with her while son explores [facility] that may be viable. Check MOCA today. 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 #Atrial fibrillation - consulted EP earlier in admit, no ppm for now - Temp pacing wire removed 11/04 - Holding home diltiazem - metop succinate qD, uptitrating for goal HR < 110 at rest - increased to 300mg and monitor - consider 200mg BID - Rivaroxaban 20 mg nightly (does adjust to 15 when has MELVA) #MELVA obstructive 2/2 malfunctioning SPC, resolved #MELVA, suspect prerenal #Hyperkalemia, possibly 2/2 labile hyperglyclemia - Lokelma intermittent last week - continue to monitor off - ctm K and Cr - Urology consult, tray recs, replaced SPC 11/11 - off mIVF #Hyperglycemia #Probable HHS, resolved #Poorly-controlled T2DM Last A1C 13.1 - Diabetes management following; appreciate recs - Holding home Trulicity, Jardiance, and metformin - SSI and meal associated - adjust as needed - Hypoglycemia on higher lantus - currently lantus 40U #UTI, possibly associated with suprapubic catheter, in place for prior hx recurrent urinary retention - s/p Ceftriaxone 2g daily for 5 days (completed 11/08) # Sacral decub ulcer: - appreciate wound care consult #Housekeeping: - DVT PPx: Home rivaroxaban - Diet: Carb Control diet 60/60/75 CHO counting level 2 - Level of care: Med/ surg - Code Status: DNR but pre-arrest intubation is permitted Team Pager( Coverage 12/01): #[phone] PCP: KATHLEEN Retana [phone] IPI Certification I certify that I am a D-H credentialed attending provider with admitting privileges and that the patient meets or has met medical necessity to require an inpatient IPI level of care meeting a minimumof two midnights or is on the [facility] inpatient only procedure list (status C) due to: acute kidney injury necessitating close monitoring of fluid balance such as intravenous fluids and/or titration of medication to achieve optimal effect and minimize the chance of immediate or severe side effects Idania Matthews MD 11/18/2023 * Angelika Woody P - 11/18/2023 12:56 PM EDT Inpatient Medicine Progress Note Interval Events/Subjective: BGs okay overnight, no lows in the AM. Appropriate output from SPT per nursing after appropriate repositioning of catheter. Feeling well this morning. No chest pain, sob, abdominal pain, flank pain, dysuria. Physical Exam: Last value Range last 24 hrs Temperature Temp: 36.7 ??C (98.1 ??F) Temp: [36.2 ??C (97.2 ??F)-36.9 ??C (98.4 ??F)] Heart Rate Heart Rate: 89 Heart Rate: [89-98] Blood Pressure BP: 118/67 BP: (110-128)/(64-83) Respiratory Rate Resp: 16 Resp: [16-18] SpO2 SpO2: 96 % SpO2: [93 %-97 %] Intake/Output Summary (Last 24 hours) at 11/18/2023 1256 Last data filed at 11/18/2023 1105 Gross per 24 hour Intake 680 ml Output 1025 ml Net -345 ml - nursing notes and vitals reviewed Constitutional: NAD Neck: No JVD Respiratory: no wheezing or crackles CV: irregular, no murmurs GI: soft, NT, ND. Ext: irregular radial pulses 2+ Lymph: no peripheral edema, wearing compression bandages Musculoskeletal: no gross deformities noted Neuro: A+O x3, no neuro deficits noted Skin/Lines: multiple chronic wounds, sacral ulcer with dressing in place, suprapubic catheter in place draining clear urine Labs: Labs reviewed and notable for: - POC glucose: 117 - 310 - WBC 9.9 (from 8.6) - Hb 9,9 (stable 9-10 during this admission) - Lytes normal - increased Cr 1.32, BUN 35 - Mag 0.79 Microbiology: BCx: NGTD UCx: Not done Pertinent radiology/diagnostic studies: NA Assessment: Hope Yee is a 73 y.o. female with PMH of HTN, atrial fibrillation on rivaroxaban, poorly-controlled T2DM, CKD, chronic indwelling suprapubic catheter, and prior TIA presenting in transfer from [facility] with bradycardia, hypotension, and hyperglycemia. Plan: #Bradycardia - resolved #Atrial fibrillation # Elevated BNP #Hx of ?tachybrady syndrome HR in the 30s-40s at [facility], meds were held and temporary pacing wire was placed. HR normalized to 90s-100s after hyperglycemia tx. Temp pacing wire removed 11/04. Bradycardia was likely the result of accumulation of beta blockade and calcium channel blockade in the setting of a prerenal MELVA. Slowly uptrating home medications (home dose of metoprolol succinate 100mg BID and diltiazem 300mg QD). Anticoagulated on home dose of rivaroxaban, reduced on 11/17 due to decreased renal function. EP consulted, not recommending pacemaker placement at this time. - Holding home diltiazem - 300mg metoprolol succinate QD, titrate as needed - Rivaroxaban 15 mg nightly due to increased creatinine #MELVA - improving, likely prerenal #Hyperkalemia #Pseudohyponatremia Her blood sugars have been very elevated at home, seemingly in the 400s-600s quite frequently, which would have led to an osmotic diuresis. All of this would have contributed to a prerenal MELVA and associated hyperkalemia. Cr 1.43 on admission, now improved to 0.91. Seems most likely that her hyponatremia was pseudohyponatremia in setting of hyperglycemia. Discontinued daily lokelma on 11/07 due tonormalizing potassium. On 11/09, increasing BUN and O>I, although normal creatinine. On 11/10, increasing creatinine >0.3 over 48 hours, meeting the definition for MELVA, coupled with decreased UOPand bladder scan showing 905mL although interpretation difficult in the context of morbid obesity. CT showed distended bladder with SPT in correct place. Urology consulted, recommended bladder decompression with barber and replaced SPT on 11/11. Creatinine and BUN intermittently elevated in the setting of limited PO intake and dehydration, tends to resolve with fluid administration. - Urology consulted, appreciate recs - Daily BMP - Monitor for retention - Holding off on additional IV fluids given pulmonary vascular congestion #Hyperglycemia #Probable HHS #Poorly-controlled T2DM Glucose in the 500s-700s at presentation, more likely HHS than DKA due to normal AG and no ketones.Last A1C 13.1. Insulin gtt started then stopped afternoon of 11/04, restarted in evening then stopped on 11/05 morning. This episode seems to have been precipitated by both a course of diarrhea due to a new medication along with missing multiple doses of her medications per week. - Diabetes management following; appreciate the assistance - Holding home Trulicity, Jardiance, and metformin - 1:5 mealtime and snack insulin, added snack insulin on 11/08. 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 Unclear whether she was having symptoms, but she did endorse possible fevers. Urinalysis likely shows contamination over infection, but patient is athigh infection risk with indwelling catheter. Completed 5-day course of ceftriaxone 2g daily 11/04-11/08. Changed suprapubic catheter 11/05, again on 11/11. #Wounds - Followed peripherally by wound care #Vitamin B12 - Started B12 oral supplementation on 11/09 # Housekeeping Diet: Carb-controlled full diet Family Update: NA DVT: Xarelto Code Status: Do NOT Attempt CPR - Inpatient PCP: KATHLEEN Retana at [phone] Angelika Woody Pager # [phone] * Idania Matthews MD - 11/17/2023 5:45 PM EDT Hospital Medicine Attending Daily Progress Note Admit Date: 11/05/2023 Hospital Day 12 days Active Hospital Problems Diagnosis DKA (diabetic ketoacidosis) Permanent atrial fibrillation Resolved Hospital Problems No resolved problems to display. 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 2 diabetes mellitus, with fat layer exposed Seronegative rheumatoid arthritis Heart murmur Gastroesophageal reflux Pseudophakia, both eyes Diabetic peripheral neuropathy Hypertension, essential, benign Hyperlipidemia SVT (supraventricular tachycardia) Gait instability Seronegative arthritis Osteoarthrosis, unspecified whether generalized or localized, pelvic region and thigh Osteoarthrosis, unspecified whether generalized or localized, lower leg Osteoarthrosis, unspecified whether generalized or localized, ankle and foot Nevus History of malignant melanoma History of basal cell carcinoma Personal history of malignant melanoma Rosacea Basal cell carcinoma of back Malignant melanoma Inpatient Medications: Scheduled insulin glargine (Lantus;Semglee) (100 unit/mL) subcutaneous injection 40 Units Subcutaneous Daily insulin lispro 1-6 Units Subcutaneous TID AC insulin lispro 0-20 Units Subcutaneous TID WC metoprolol succinate XL 300 mg Oral Daily cyanocobalamin (Vitamin B-12) 1,000 mcg Oral Daily sodium chloride 0.9 % (flush) 5 mL Intravenous BID rivaroxaban 20 mg Oral Daily with dinner Continuous infusions: PRN: acetaminophen, calcium carbonate, insulin lispro, glucose 40% oral geL OR dextrose OR glucagon, sodium chloride 0.9 % (flush), lidocaine Interval History Glc 69 at 3am - decreased lantus 48 to 40 this am No acute complaints other than some urine from urethra when having BM/sitting for BR. No dysuria and SPC draining. Physical Exam Vitals Range last 24 hrs Temperature Temp: [36.3 ??C (97.3 ??F)-36.6 ??C (97.9 ??F)] Heart Rate Heart Rate: -- Blood Pressure BP: (122-139)/(77-86) Respiratory Rate Resp: [18] SpO2 SpO2: [90 %-98 %] Intake/Output Summary (Last 24 hours) at 11/17/2023 1745 Last data filed at 11/17/2023 1639 Gross per 24 hour Intake 1000 ml Output 475 ml Net 525 ml No data found. Body mass index is 30.77 kg/m??. Physical Exam General: NAD, oriented HEENT: Anicteric sclera CV: irreg irreg Lungs: CTA bilaterally Abd: Non-tender Ext: no edema, stockings on LABS: Last 3 wbc, hgb, hct plt Recent Labs 11/17/23 0513 11/16/23 0322 11/15/23 0357 WBC 8.6 8.1 9.6* HGB 10.6* 9.9* 11.1* HCT 36.3 33.9* 38.9 PLATELET 524* 555* 555* Last 3 Lytes Recent Labs 11/17/23 0513 11/16/23 0322 11/15/23 0357 NA 139 140 137 K 4.7 4.3 5.0 CL 103 105 104 CO2 24 BUN 25* 19* 21* CREATININE 0.96 0.71 0.79 Last 3 LFTs Recent Labs 11/09/23 0000 11/05/23 0335 AST 20 268* ALT 47* 174* ALKPHOS 76 119* BILITOT <0.2* 0.3 BILIDIR <0.1 0.2 FSBG Trend Recent Labs 11/17/23 1635 11/17/23 1349 11/17/23 1144 11/17/23 0808 11/17/23 0350 11/16/23 2345 11/16/23 1929 11/16/23 1505 11/16/23 1131 11/16/23 0800 POCGLU 212* 310* 259* 117 69 90 128 122 227* 86 MICRO: No results for input(s): URINECULTURE in the last 720 hours. No results for input(s): GRAMSTAIN, BFCX, LOWERRESPCX, TISSUECX in the last 720 hours. Recent Labs 11/05/23 0400 11/05/23 0415 BLOODCX No growth at 5 days. No growth at 5 days. ECG: Recent Labs 11/15/23 1456 DIAGLINE Atrial fibrillation Low voltage QRS Abnormal ECG When compared with ECG of 05-NOV-2023 03:10, No significant change was found QTCCALC 454 VASCULAR: Recent Labs 11/09/23 1643 VBTEXTRPT Department: Vascular Surgery Lab Patient: [id number] (HOPE YEE) CPT: 95542 Referring Physician: JOAQUIM GEORGES Phone: Indications: Chronic LE wound ? perfusion Diabetes mellitus: Yes Findings: Right Pressure (mm Hg) Waveform TBI Brachial Artery 134 Dorsalis Pedis (Ankle) Artery >254 Triphasic Posterior Tibial (Ankle) Artery >254 Triphasic Great Toe 113 0.84 Left Pressure (mm Hg) Waveform TBI Brachial Artery IV Dorsalis Pedis (Ankle) Artery >254 Triphasic Posterior Tibial (Ankle) Artery >254 Triphasic Great Toe 111 0.83 Interpretation: RIGHT: No significant lower extremity arterial [...] ABIs with change from previous value: Date RIGHT DP RIGHT PT RT GR TOE RT Sec TOE 1.21 1.29 0.75 ---- Current ---- ---- 0.84(+.09) ---- Date LEFT DP LEFT PT LT GR TOE LT Sec TOE 1.21 1.22 0.76 ---- Current ---- ---- 0.83(+.07) ---- End of Report IMAGING: Results for orders placed or performed during the hospital encounter of 11/05/23 XR Chest One View (Exam End: 11/05/2023 3:58 AM) Result Value WORKSTATION ID [id number] Impression Right IJ central venous catheter with tip projecting over the right atrium. I have personally reviewed the image(s) and the resident's interpretation and agree with the findings, Emeka Wolfe MD at 11/05/2023 4:37 AM Thank you for letting us participate in the care of this patient. If you are a health care provider and have any questions regarding this report, please contact the number below. For patients who have questions please contact the health adult day care worker that requested your imaging first. Abdomen & Pelvis wo Contrast (Exam End: 11/11/2023 12:20 PM) Result Value WORKSTATION ID [id number] Impression Appropriate position of the suprapubic catheter, however, persistent moderate bladder distention. Possible catheter obstruction/clog; correlate with ability to flush catheter. The overall appearance is similar to 2021 when the catheter was in appropriate position and the bladder was distended. Thank you for letting us participate in the care of this patient. If you are a health care provider and have any questions regarding this report, please contact the number below. For patients who have questions please contact the health adult day care worker that requested your imaging first. Electronically signed by: SUNSHINE ALCOCER MD, [facility] ([phone]), at 11/11/2023 1:06 PM TTE 11/05/23 Interpretation Summary Normal left ventricular size with hyperdynamic systolic function. Ejection fraction is visually 70%. There are no regional wall motion abnormalities. The right ventricle is mildly dilated with normal systolic function. There is no significant valvular disease. Compared to prior echo from 01/08/18, there are no major changes. ASSESSMENT and PLAN: Hope is a 73 y/o with HTN, AF on rivaroxaban, poorly-controlled T2DM (A1C 13), CKD, chronic indwelling suprapubic catheter requiring exchange this admission, and prior TIA presenting in transfer from [facility] with bradycardia, hypotension, and hyperglycemia. Hyperglycemia improving and appreciate DM assistance. HR overall improved. Increased to 300mg today. Safe for home alone per PT/OT with daily check-ins and explore daughter if can help support (for DMmanagement and rate control/medications). Son is reportedly working on getting her into a [facility] near him in [place]. Anticipate if daughter could stay with her while son explores [facility] that may be viable. Ensure stable glc and HR for discharge. 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 #Atrial fibrillation - consult EP tray recs, no ppm for now - Temp pacing wire removed 11/04 - Holding home diltiazem - metop succinate qD, uptitrating for goal HR < 110 at rest - increased to 300mg and monitor - consider 200mg BID - Rivaroxaban 20 mg nightly #MELVA obstructive 2/2 malfunctioning SPC, resolved #MELVA, suspect prerenal #Hyperkalemia, possibly 2/2 labile hyperglyclemia - Lokelma intermittent last week - continue to monitor off - ctm K and Cr - Urology consult, tray recs, replaced SPC 11/11 - off mIVF #Hyperglycemia #Probable HHS, resolved #Poorly-controlled T2DM Last A1C 13.1 - Diabetes management following; appreciate recs - Holding home Trulicity, Jardiance, and metformin - SSI and meal associated - adjust as needed - Hypoglycemia - decrease lantus 40U #UTI, possibly associated with suprapubic catheter, in place for prior hx recurrent urinary retention - s/p Ceftriaxone 2g daily for 5 days (completed 11/08) # Sacral decub ulcer: - appreciate wound care consult #Housekeeping: - DVT PPx: Home rivaroxaban - Diet: Carb Control diet 60/60/75 CHO counting level 2 - Level of care: Med/ surg - Code Status: DNR but pre-arrest intubation is permitted Team Pager(MD Coverage 12/01): #[phone] PCP: KATHLEEN Retana [phone] IPI Certification I certify that I am a D-H credentialed attending provider with admitting privileges and that the patient meets or has met medical necessity to require an inpatient IPI level of care meeting a minimumof two midnights or is on the [facility] inpatient only procedure list (status C) due to: acute kidney injury necessitating close monitoring of fluid balance such as intravenous fluids and/or titration of medication to achieve optimal effect and minimize the chance of immediate or severe side effects Idania Matthews MD 11/17/2023 * Varghese Chanel - 11/17/2023 2:24 PM EDT Job Lithographer Encounter Note Patient Name: Hope Yee : [id number] MR#: [id number] Admit Date: 11/05/2023 2:58 AM Hospital Day 12 days Narrative:Visited to introduce and assess acceptance of Job Lithographer services. Pt was not available and I will visit another time. Assessment: Intervention and Outcome: Follow-up: Time in Direct Care: Varghese Chanel 11/17/2023 * Eugenie Mauricio, PSYCHOLOGICAL OPERATIONS SPECIALIST - 11/17/2023 11:41 AM EDT Images from the original note were not included. .Follow Up Diabetes Consult Patient Interview Patient blood sugar is variable and tendin to low She was admitted for DKA and was thought to NOW be a T1/ or questioned if that was Eu DKA (was on Jardiance)-however her C-peptide is 2 suggesting she is capable of manufacturing insulin and her BOHBwas only 0.45 at admit. She is requiring less insulin now that she has cleaned up her hyperglycemia. She is on a GLP-1 and and SGLT-2 at home as well as short and long acting acting insulin Objective Temp: [36.3 ??C (97.3 ??F)-36.6 ??C (97.9 ??F)] Heart Rate: -- Resp: [16-18] BP: (124-139)/(79-91) SpO2: [90 %-98 %] Heart Rate from SpO2: [84 bpm-103 bpm] Current Regimen 1. Glargine units in the morning 2.Lispro 1unit: 4 gm carb ratio for each meal and snack 3.Lispro 1:10>140 Recent Glucose Levels Recent Labs 11/17/23 0808 11/17/23 0350 11/16/23 2345 11/16/23 1929 11/16/23 1505 11/16/23 1131 11/16/23 0800 11/16/23 0336 11/15/23 2327 11/15/23200211/15/23 1838 11/15/23 1818 POCGLU 117 69 90 128 122 227* 86 105 264* 174 70 52* ASSESSMENT Patient is a 73 y.o. years old female with PMH significant for DM (Last A1C of 13.1%) who was admitted on 11/05/2023 for DKA. Diabetes uncontrolled and currently complicated by unknown insulin requirements. Currently with variability of blood glucose levels while hospitalized requiring adjustment of insulin regimen and DM medications. Patient used 94 units insulin yesterday. Has not had GLP-1 in > 2 weeks We do not think she met criteria for DKA-she did have HHS and osm was 315 at admit. PLAN SUGGEST 1. Glargine 40 units in the morning 2.Lispro 1unit: 8 gm carb ratio for each meal and snack 3.Lispro 1:20>140 Getting ready for home: She may restart her GLP-1 at the start dose (Trulicity back to 0.75 mg weekly dose from her previous 1.5-ask PCP to do that PA) She may restart her Farxiga at D/C as long as is eating and drinking Her Long acting insulin (Lantus) is 30 units in the night time-this is not AM Metformin is 1000 mg PO BID-she could restart at half doses when goes home Uses humalog 12 units at lunch-suggest using 5-15 based upon coverage once her SGLT-2 is up and working Has worked with Court sánchez in [facility] and should re-engage 40 minutes of this 50 minute visit was spent with the patient in counseling on diabetes and treatment plan, reviewing all glucose and insulin data as well as relevant laboratory results with the patient, and coordination of care on the inpatient unit including nursing and primary team. * Kendra Peterson, OT - 11/17/2023 11:03 AM EDT Occupational Therapy Treatment Note Treatment Number OT: 3 Patient Dx: Hope Yee is a 73 y.o. female with PMH of HTN, atrial fibrillation on rivaroxaban, poorly-controlled T2DM, CKD, chronic indwelling suprapubic catheter, and prior TIA presenting intransfer from [facility] with bradycardia, hypotension, and hyperglycemia. Past Medical History Past Medical History: Diagnosis Date Atrial fibrillation Diabetes mellitus GERD (gastroesophageal reflux disease) Hypertension Melanoma in situ s/p removal Rheumatoid arthritis SVT (supraventricular tachycardia) Past Surgical History Past Surgical History: Procedure Laterality Date SECTION JOINT REPLACEMENT Social History: Patient lives alone in [place], [place] with her Aggie rai Home Setup: apt building w/ elevator access. She has a tub shower with grab bars, no seat DME: cane, 4WW Baseline ADL/Mobility: Pt was independent w/ ADL's and IADL's, though she doesn't drive. She manages her medications, though does admit to having some difficulty at times related to her vision. She receives driving services 2x/month. She enjoys watching TV and going shopping. She has been receiving[facility] for her LE wounds Precautions/Special Considerations: at risk to fall, DNR (code limitations), suprapubic catheter (chronic), carb control diet S: Just my feet hurt re: when asked about pain O: Patient seen for skilled OT treatment, and demonstrated the following: Self-care: Pt up in recliner upon arrival, on room air. Pt still with suprapubic catheter to gravity bag. Sit to Stand with CGA and increased time with verbal cues for hand placement on walker Patient walked to the bathroom ~10ft total with CGA and verbal cues for staying close to the walker Stand to Sit onto the toilet with CGA with good use of grab bar Patient reported headache (4/10 pain) and RN provided meds. Toileting routine performed with CGA and minimal verbal cues for wiping front to back direction. Patient has difficulty reaching from the side for wiping. Patient stood at the sink for hand hygiene Stand to Sit onto commode for short rest break Sponge bathing routine seated with set-up assistance to minimal assistance Donned pants threading catheter bag through the left side with minimal to moderate assistance and instructions on sequencing the task. Patient reports she usually keeps the catheter through the top of her pants versus threading through pant legs. Patient walked back to the recliner chair with needs met, call puckett, and RN notified. Cognition: Behavior / Mood: alert and cooperative Alert and oriented to: person, place, and situation Follows commands: 1 step and requires repetition with multi-step Attention: WFL Safety awareness: decreased insight into deficits Vision:limited as noted on evaluation, unable to read mouthwash container. Asking therapist what itwas before using it. Endurance:Limited standing tolerance Vitals: Patient reported some dizziness with BP: 125/86. HR: 90s and Spo2: 96% on RA Pain: denies pain Education: Pt/family/caregiver education ongoing regarding: Role of occupational therapy/rehabilitation, Transfers, Assistive device/technique, ADL, Safety, Functional Mobility, Activity pacing/Energy conservation, Recommendations, and Discharge planning. Staff Communication: Patient status, treatment, and mobility recommendations discussed with nursing/other staff. ASSESSMENT: Patient seen today for OT treatment focused on self care and functional mobility. The patient demonstrated toileting routine, bathing and dressing in the bathroom performed seated with intermitted standing. Patient performed lower body dressing with minimal to moderate assistance with managing the catheter bag with the pants. The patient demonstrates decreased standing tolerance and endurance for performing self care tasks. The patient benefits from verbal cues to participate in self care tasks in the room and encouragement from staffing branch manager. Pt lives alone with limited social support. At this time, still continue to recommend rehab to maximize her safety and help her train in self-m anagement behaviors unless family can step up and provide necessary assistance. Pt will benefit from ongoing therapeutic interventions to achieve pt's and therapy goals Equipment needs at discharge: walker, front wheeled, shower chair Anticipated Discharge Disposition: swing bed rehabilitation facility (versus home with family support and home health services) Daily schedule / Staff Recommendations: Encourage participation in ADL's by providing set up A on tray table and physical assist only as needed. EPM Level 5: Ambulate, Participate in self care Occupational Therapy Goals: Goals: To be achieved within 2 weeks, by 11/23/23: Patient will be modified independent for standing grooming tasks at the sink. (Working on) Patient will be modified independent with LB dressing. (Progressing) Patient will be modified independent with toileting. (Progressing) Patient will be modified independent with sponge bath or shower. (Working on) Patient will participate in further health literacy and self-management assessment. Therapy Frequency (OT): 2-3 times/wk Total Minutes, Occupational Therapy: 43 ([facility] x3 ([phone])) Pager: [phone] Kendra Peterson OT 11/17/2023 Occupational Therapy Rehabilitation Department * [place] P - 11/17/2023 7:45 AM EDT Inpatient Medicine Progress Note Interval Events/Subjective: BGs okay overnight, with low of 69 this AM. Appropriate output from SPT per nursing note. Feeling well this morning. No chest pain, sob, abdominal pain, flank pain, dysuria. Concerned that she is having some urine voiding through urethra and not just through SPT. Physical Exam: Last value Range last 24 hrs Temperature Temp: 36.5 ??C (97.7 ??F) Temp: [36.3 ??C (97.3 ??F)-36.6 ??C (97.9 ??F)] Heart Rate Heart Rate: 100 Heart Rate: -- Blood Pressure BP: 133/83 BP: (124-167)/(79-96) Respiratory Rate Resp: 18 Resp: [16-18] SpO2 SpO2: 96 % SpO2: [90 %-97 %] Intake/Output Summary (Last 24 hours) at 11/17/2023 0745 Last data filed at 11/17/2023 0400 Gross per 24 hour Intake 1051 ml Output 1000 ml Net 51 ml - nursing notes and vitals reviewed Constitutional: NAD Neck: No JVD Respiratory: no wheezing or crackles CV: irregular, no murmurs GI: soft, NT, ND. Ext: irregular radial pulses 2+ Lymph: no peripheral edema, wearing compression bandages Musculoskeletal: no gross deformities noted Neuro: A+O x3, no neuro deficits noted Skin/Lines: multiple chronic wounds, sacral ulcer with dressing in place, suprapubic catheter in place draining clear urine Labs: Labs reviewed and notable for: - POC glucose: 69 - 227 - WBC 8.6 - Hb 10.6 (stable 9-10 during this admission) - Lytes normal - Cr 0.96, BUN 25 - Mag 0.73 Microbiology: BCx: NGTD UCx: Not done Pertinent radiology/diagnostic studies: NA Assessment: Hope Yee is a 73 y.o. female with PMH of HTN, atrial fibrillation on rivaroxaban, poorly-controlled T2DM, CKD, chronic indwelling suprapubic catheter, and prior TIA presenting in transfer from [facility] with bradycardia, hypotension, and hyperglycemia. Plan: #Bradycardia - resolved #Atrial fibrillation # Elevated BNP #Hx of ?tachybrady syndrome HR in the 30s-40s at [facility], meds were held and temporary pacing wire was placed. HR normalized to 90s-100s after hyperglycemia tx. Temp pacing wire removed 11/04. Bradycardia was likely the result of accumulation of beta blockade and calcium channel blockade in the setting of a prerenal MELVA. Slowly uptrating home medications (home dose of metoprolol succinate 100mg BID and diltiazem 300mg QD). Anticoagulated on home dose of rivaroxaban. EP consulted, not recommending pacemaker placement at this time. - Telemetry - Holding home diltiazem - 300mg metoprolol succinate QD, titrate as needed - Rivaroxaban 20 mg nightly #MELVA - improving, likely prerenal #Hyperkalemia #Pseudohyponatremia Her blood sugars have been very elevated at home, seemingly in the 400s-600s quite frequently, which would have led to an osmotic diuresis. All of this would have contributed to a prerenal MELVA and associated hyperkalemia. Cr 1.43 on admission, now improved to 0.91. Seems most likely that her hyponatremia was pseudohyponatremia in setting of hyperglycemia. Discontinued daily lokelma on 11/07 due tonormalizing potassium. On 11/09, increasing BUN and O>I, although normal creatinine. On 11/10, increasing creatinine >0.3 over 48 hours, meeting the definition for MELVA, coupled with decreased UOPand bladder scan showing 905mL although interpretation difficult in the context of morbid obesity. CT showed distended bladder with SPT in correct place. Urology consulted, recommended bladder decompression with barber and replaced SPT on 11/11. Creatinine and BUN intermittently elevated in the setting of limited PO intake and dehydration, resolved with fluid administration. - Urology consulted, appreciate recs - Daily BMP - Monitor for retention - Holding off on additional IV fluids given pulmonary vascular congestion #Hyperglycemia #Probable HHS #Poorly-controlled T2DM Glucose in the 500s-700s at presentation, more likely HHS than DKA due to normal AG and no ketones.Last A1C 13.1. Insulin gtt started then stopped afternoon of 11/04, restarted in evening then stopped on 11/05 morning. This episode seems to have been precipitated by both a course of diarrhea due to a new medication along with missing multiple doses of her medications per week. - Diabetes management following; appreciate the assistance - Holding home Trulicity, Jardiance, and metformin - 1:5 mealtime and snack insulin, added snack insulin on 11/08. 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 Unclear whether she was having symptoms, but she did endorse possible fevers. Urinalysis likely shows contamination over infection, but patient is athigh infection risk with indwelling catheter. Completed 5-day course of ceftriaxone 2g daily 11/04-11/08. Changed suprapubic catheter 11/05, again on 11/11. #Wounds - Followed peripherally by wound care #Vitamin B12 - Started B12 oral supplementation on 11/09 # Housekeeping Diet: Carb-controlled full diet Family Update: NA DVT: Xarelto Code Status: Do NOT Attempt CPR - Inpatient PCP: KATHLEEN Retana at [phone] Angelika Manrique [place] Pager # [phone] * Idania Matthews MD - 11/16/2023 9:31 AM EDT Hospital Medicine Attending Daily Progress Note Admit Date: 11/05/2023 Hospital Day 11 days Active Hospital Problems Diagnosis DKA (diabetic ketoacidosis) Permanent atrial fibrillation Resolved Hospital Problems No resolved problems to display. 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 2 diabetes mellitus, with fat layer exposed Seronegative rheumatoid arthritis Heart murmur Gastroesophageal reflux Pseudophakia, both eyes Diabetic peripheral neuropathy Hypertension, essential, benign Hyperlipidemia SVT (supraventricular tachycardia) Gait instability Seronegative arthritis Osteoarthrosis, unspecified whether generalized or localized, pelvic region and thigh Osteoarthrosis, unspecified whether generalized or localized, lower leg Osteoarthrosis, unspecified whether generalized or localized, ankle and foot Nevus History of malignant melanoma History of basal cell carcinoma Personal history of malignant melanoma Rosacea Basal cell carcinoma of back Malignant melanoma Inpatient Medications: Scheduled metoprolol succinate XL 300 mg Oral Daily insulin lispro 2-12 Units Subcutaneous Q4H DANNI insulin glargine (Lantus;Semglee) (100 unit/mL) subcutaneous injection 48 Units Subcutaneous Daily insulin lispro 0-25 Units Subcutaneous TID WC cyanocobalamin (Vitamin B-12) 1,000 mcg Oral Daily sodium chloride 0.9 % (flush) 5 mL Intravenous BID rivaroxaban 20 mg Oral Daily with dinner Continuous infusions: PRN: acetaminophen, calcium carbonate, insulin lispro, glucose 40% oral geL OR dextrose OR glucagon, sodium chloride 0.9 % (flush), lidocaine Interval History Glc to 52 last evening - 90s this am; up to 270s during day. Decreased lantus 58 to 48 today and meal associated 1:5 from 1:4 Chest discomfort improved with tums - no current chest discomfort. Noting how variable her glc is. No other acute concerns. Asking if we know anything from bother for JAIL. Physical Exam Vitals Range last 24 hrs Temperature Temp: [35.9 ??C (96.6 ??F)-36.6 ??C (97.9 ??F)] Heart Rate Heart Rate: [100-107] Blood Pressure BP: (132-167)/(70-99) Respiratory Rate Resp: [12-20] SpO2 SpO2: [96 %-99 %] Intake/Output Summary (Last 24 hours) at 11/16/2023 09 Last data filed at 11/16/2023 0900 Gross per 24 hour Intake 1382 ml Output 3625 ml Net -2243 ml No data found. Body mass index is 30.77 kg/m??. Physical Exam General: NAD, oriented HEENT: Anicteric sclera CV: irreg irreg Lungs: CTA bilaterally Abd: Non-tender Ext: no edema, stockings on LABS: Last 3 wbc, hgb, hct plt Recent Labs 11/16/23 0322 11/15/23 0357 11/14/23 0433 WBC 8.1 9.6* 8.8 HGB 9.9* 11.1* 10.0* HCT 33.9* 38.9 34.3* PLATELET 555* 555* 530* Last 3 Lytes Recent Labs 11/16/23 0322 11/15/23 0357 11/14/23 0433 NA 140 137 142 K 4.3 5.0 4.4 CL 105 104 107 CO2 BUN 19* 21* 26* CREATININE 0.71 0.79 0.79 Last 3 LFTs Recent Labs 11/09/23 0000 11/05/23 0335 AST 20 268* ALT 47* 174* ALKPHOS 76 119* BILITOT <0.2* 0.3 BILIDIR <0.1 0.2 FSBG Trend Recent Labs 11/16/23 0800 11/16/23 0336 11/15/23 2327 11/15/23200211/15/23 1838 11/15/23 1818 11/15/23 1802 11/15/23 1542 11/15/23 1438 11/15/23 1228 POCGLU 86 105 264* 174 70 52* 55* 159 193 249* MICRO: No results for input(s): URINECULTURE in the last 720 hours. No results for input(s): GRAMSTAIN, BFCX, LOWERRESPCX, TISSUECX in the last 720 hours. Recent Labs 11/05/23 0400 11/05/23 0415 BLOODCX No growth at 5 days. No growth at 5 days. ECG: Recent Labs 11/15/23 1456 DIAGLINE Atrial fibrillation Low voltage QRS Abnormal ECG When compared with ECG of 05-NOV-2023 03:10, No significant change was found QTCCALC 454 VASCULAR: Recent Labs 11/09/23 1643 VBTEXTRPT Department: Vascular Surgery Lab Patient: [id number] (HOPE YEE) CPT: 16505 Referring Physician: JOAQUIM GEORGES Phone: Indications: Chronic LE wound ? perfusion Diabetes mellitus: Yes Findings: Right Pressure (mm Hg) Waveform TBI Brachial Artery 134 Dorsalis Pedis (Ankle) Artery >254 Triphasic Posterior Tibial (Ankle) Artery >254 Triphasic Great Toe 113 0.84 Left Pressure (mm Hg) Waveform TBI Brachial Artery IV Dorsalis Pedis (Ankle) Artery >254 Triphasic Posterior Tibial (Ankle) Artery >254 Triphasic Great Toe 111 0.83 Interpretation: RIGHT: No significant lower extremity arterial [...] ABIs with change from previous value: Date RIGHT DP RIGHT PT RT GR TOE RT Sec TOE 1.21 1.29 0.75 ---- Current ---- ---- 0.84(+.09) ---- Date LEFT DP LEFT PT LT GR TOE LT Sec TOE 1.21 1.22 0.76 ---- Current ---- ---- 0.83(+.07) ---- End of Report IMAGING: Results for orders placed or performed during the hospital encounter of 11/05/23 XR Chest One View (Exam End: 11/05/2023 3:58 AM) Result Value WORKSTATION ID [id number] Impression Right IJ central venous catheter with tip projecting over the right atrium. I have personally reviewed the image(s) and the resident's interpretation and agree with the findings, Emeka Wolfe MD at 11/05/2023 4:37 AM Thank you for letting us participate in the care of this patient. If you are a health care provider and have any questions regarding this report, please contact the number below. For patients who have questions please contact the health adult day care worker that requested your imaging first. Abdomen & Pelvis wo Contrast (Exam End: 11/11/2023 12:20 PM) Result Value WORKSTATION ID [id number] Impression Appropriate position of the suprapubic catheter, however, persistent moderate bladder distention. Possible catheter obstruction/clog; correlate with ability to flush catheter. The overall appearance is similar to 2021 when the catheter was in appropriate position and the bladder was distended. Thank you for letting us participate in the care of this patient. If you are a health care provider and have any questions regarding this report, please contact the number below. For patients who have questions please contact the health adult day care worker that requested your imaging first. Electronically signed by: SUNSHINE ALCOCER MD, [facility] ([phone]), at 11/11/2023 1:06 PM TTE 11/05/23 Interpretation Summary Normal left ventricular size with hyperdynamic systolic function. Ejection fraction is visually 70%. There are no regional wall motion abnormalities. The right ventricle is mildly dilated with normal systolic function. There is no significant valvular disease. Compared to prior echo from 01/08/18, there are no major changes. ASSESSMENT and PLAN: Hope is a 73 y/o with HTN, AF on rivaroxaban, poorly-controlled T2DM (A1C 13), CKD, chronic indwelling suprapubic catheter requiring exchange this admission, and prior TIA presenting in transfer from [facility] with bradycardia, hypotension, and hyperglycemia. Hyperglycemia improving and appreciate DM assistance. HR overall improved. For ease of dosing will change to 300mg for tomorrow and monitor (instead of 5 50mg tabs or 100mg and 50mg tabs for 250mg). Safe for home alone per PT/OT with daily check-ins and explore daughter if can help support (for DMmanagement and rate control/medications). Son is working on getting her into a JAIL near him in [place]. Anticipate if daughter could stay with her while son explores JAIL that may be viable. Also report of bed bugs thus would need to ensure home is suitable. Ensure stable glc and HR for discharge. 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 #Atrial fibrillation - consult EP tray recs, no ppm for now - Temp pacing wire removed 11/04 - Holding home diltiazem - metop succinate qD, uptitrating for goal HR < 110 at rest - increase to 300mg today for ease of dosing - if remains elevated in am - consider succinate 200mg BID - Rivaroxaban 20 mg nightly #MELVA obstructive 2/2 malfunctioning SPC, resolved #MELVA, suspect prerenal #Hyperkalemia, possibly 2/2 labile hyperglyclemia - Lokelma intermittent last week - continue to monitor off - ctm K and Cr - Urology consult, tray recs, replaced SPC 11/11 - off mIVF #Hyperglycemia #Probable HHS, resolved #Poorly-controlled T2DM Last A1C 13.1 - Diabetes management following; appreciate recs - Holding home Trulicity, Jardiance, and metformin - SSI and meal associated - Hypoglycemia - decrease lantus 58U to 48U #UTI, possibly associated with suprapubic catheter, in place for prior hx recurrent urinary retention - s/p Ceftriaxone 2g daily for 5 days (completed 11/08) # Sacral decub ulcer: - appreciate wound care consult #Housekeeping: - DVT PPx: Home rivaroxaban - Diet: Carb Control diet 60/60/75 CHO counting level 2 - Level of care: Med/ surg - Code Status: DNR but pre-arrest intubation is permitted Team Pager(MD Coverage 12/01): #[phone] PCP: KATHLEEN Retana [phone] IPI Certification I certify that I am a [facility] credentialed attending provider with admitting privileges and that the patient meets or has met medical necessity to require an inpatient IPI level of care meeting a minimumof two midnights or is on the [facility] inpatient only procedure list (status C) due to: acute kidney injury necessitating close monitoring of fluid balance such as intravenous fluids and/or titration of medication to achieve optimal effect and minimize the chance of immediate or severe side effects Idania Matthews MD 11/16/2023 * Judy Gould RN - 11/15/2023 3:43 PM EDT 11/15/23 1501 Adult Vital Signs Heart Rate from SpO2 98 bpm Heart Rate Source Monitor BP (!) 163/97 MAP (NBP) 119 mmHg BP Method Automatic BP Location (NBP) Right arm Patient Position Sitting SpO2 99 % Pt returned to chair from commode and started reporting a strange feeling in L chest. Denied pain, vision changes or SOB. MD paged. EKG done showing afib (known history). Neuro WNL other than pt reporting a dry mouth and some difficulty swallowing. Thin liquids given while upright in chair and patient able to swallow without coughing, but reported feeling like it got stuck before going down. Repeat VS show BP elevated to 163/97. Pt reported feeling SOB when laying down, O2 sats 98% on RA. HOB sat up with resolution of SOB, but continues to feel tightness in throat. updated and advised will assess at bedside. Pt resting in bed comfortably with this RN at bedside. * Idania Matthews MD - 11/15/2023 12:35 PM EDT Hospital Medicine Attending Daily Progress Note Admit Date: 11/05/2023 Hospital Day 10 days Active Hospital Problems Diagnosis DKA (diabetic ketoacidosis) Permanent atrial fibrillation Resolved Hospital Problems No resolved problems to display. 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 2 diabetes mellitus, with fat layer exposed Seronegative rheumatoid arthritis Heart murmur Gastroesophageal reflux Pseudophakia, both eyes Diabetic peripheral neuropathy Hypertension, essential, benign Hyperlipidemia SVT (supraventricular tachycardia) Gait instability Seronegative arthritis Osteoarthrosis, unspecified whether generalized or localized, pelvic region and thigh Osteoarthrosis, unspecified whether generalized or localized, lower leg Osteoarthrosis, unspecified whether generalized or localized, ankle and foot Nevus History of malignant melanoma History of basal cell carcinoma Personal history of malignant melanoma Rosacea Basal cell carcinoma of back Malignant melanoma Inpatient Medications: Scheduled insulin glargine (Lantus;Semglee) (100 unit/mL) subcutaneous injection 58 Units Subcutaneous Daily insulin lispro 0-25 Units Subcutaneous TID WC metoprolol succinate XL 250 mg Oral Daily insulin lispro 2-12 Units Subcutaneous Q4H DANNI cyanocobalamin (Vitamin B-12) 1,000 mcg Oral Daily sodium chloride 0.9 % (flush) 5 mL Intravenous BID rivaroxaban 20 mg Oral Daily with dinner Continuous infusions: PRN: insulin lispro, glucose 40% oral geL OR dextrose OR glucagon, sodium chloride 0.9 % (flush), lidocaine Interval History Glc to 58 MN; to 275 today Remains on 250mg Toprol - HR 90s-100s. Denied CP, SOB, fevers, chills, abdominal pain on initial visit. After lunch and commode noted discomfort chest and upper neck - wondered if indigestion. Has been drinking more diet soda. No SOB or palpitations - EKG unchanged with AF. Physical Exam Vitals Range last 24 hrs Temperature Temp: [36.2 ??C (97.2 ??F)-36.8 ??C (98.2 ??F)] Heart Rate Heart Rate: -- Blood Pressure BP: (104-146)/(70-91) Respiratory Rate Resp: [18-20] SpO2 SpO2: [90 %-100 %] Intake/Output Summary (Last 24 hours) at 11/15/2023 1235 Last data filed at 11/15/2023 1232 Gross per 24 hour Intake 1972 ml Output 3400 ml Net -1428 ml No data found. Body mass index is 30.77 kg/m??. Physical Exam General: NAD, oriented HEENT: Anicteric sclera CV: irreg irreg Lungs: CTA bilaterally Abd: Non-tender Ext: no edema LABS: Last 3 wbc, hgb, hct plt Recent Labs 11/15/23 0357 11/14/23 0433 11/13/23 0008 WBC 9.6* 8.8 9.7* HGB 11.1* 10.0* 9.3* HCT 38.9 34.3* 31.6* PLATELET 555* 530* 448* Last 3 Lytes Recent Labs 11/15/23 0357 11/14/23 0433 11/13/23 0008 NA 137 142 136 K 5.0 4.4 5.0 CL 104 107 103 CO2 BUN 21* 26* 34* CREATININE 0.79 0.79 1.17 Last 3 LFTs Recent Labs 11/09/23 0000 11/05/23 0335 AST 20 268* ALT 47* 174* ALKPHOS 76 119* BILITOT <0.2* 0.3 BILIDIR <0.1 0.2 FSBG Trend Recent Labs 11/15/23 1228 11/15/23 1032 11/15/23 0824 11/15/23 0342 11/15/23 0101 11/15/23 0037 11/14/23 2036 11/14/23 1633 11/14/23 1209 11/14/23 0916 POCGLU 249* 275* 254* 128 81 58* 149 175 162 109 MICRO: No results for input(s): URINECULTURE in the last 720 hours. No results for input(s): GRAMSTAIN, BFCX, LOWERRESPCX, TISSUECX in the last 720 hours. Recent Labs 11/05/23 0400 11/05/23 0415 BLOODCX No growth at 5 days. No growth at 5 days. ECG: Recent Labs 11/05/23 0310 DIAGLINE Atrial fibrillation Low voltage QRS Prolonged QTc Abnormal ECG When compared with ECG of 11-JAN-2018 11:06, Nonspecific T wave abnormality no longer evident in Inferior leads Confirmed by fellow DeLago, MD, Mateo ([id number]) on 11/05/2023 2:07:55 PM Confirmed by MD Funk Danette ([id number]) on 11/06/2023 5:30:09 PM QTCCALC 492 VASCULAR: Recent Labs 11/09/23 1643 VBTEXTRPT Department: Vascular Surgery Lab Patient: [id number] (HOPE YEE) CPT: 01829 Referring Physician: JOAQUIM GEORGES Phone: Indications: Chronic LE wound ? perfusion Diabetes mellitus: Yes Findings: Right Pressure (mm Hg) Waveform TBI Brachial Artery 134 Dorsalis Pedis (Ankle) Artery >254 Triphasic Posterior Tibial (Ankle) Artery >254 Triphasic Great Toe 113 0.84 Left Pressure (mm Hg) Waveform TBI Brachial Artery IV Dorsalis Pedis (Ankle) Artery >254 Triphasic Posterior Tibial (Ankle) Artery >254 Triphasic Great Toe 111 0.83 Interpretation: RIGHT: No significant lower extremity arterial [...] ABIs with change from previous value: Date RIGHT DP RIGHT PT RT GR TOE RT Sec TOE 1.21 1.29 0.75 ---- Current ---- ---- 0.84(+.09) ---- Date LEFT DP LEFT PT LT GR TOE LT Sec TOE 1.21 1.22 0.76 ---- Current ---- ---- 0.83(+.07) ---- End of Report IMAGING: Results for orders placed or performed during the hospital encounter of 11/05/23 XR Chest One View (Exam End: 11/05/2023 3:58 AM) Result Value WORKSTATION ID [id number] Impression Right IJ central venous catheter with tip projecting over the right atrium. I have personally reviewed the image(s) and the resident's interpretation and agree with the findings, Emeka Wolfe MD at 11/05/2023 4:37 AM Thank you for letting us participate in the care of this patient. If you are a health care provider and have any questions regarding this report, please contact the number below. For patients who have questions please contact the health adult day care worker that requested your imaging first. Abdomen & Pelvis wo Contrast (Exam End: 11/11/2023 12:20 PM) Result Value WORKSTATION ID [id number] Impression Appropriate position of the suprapubic catheter, however, persistent moderate bladder distention. Possible catheter obstruction/clog; correlate with ability to flush catheter. The overall appearance is similar to 2021 when the catheter was in appropriate position and the bladder was distended. Thank you for letting us participate in the care of this patient. If you are a health care provider and have any questions regarding this report, please contact the number below. For patients who have questions please contact the health adult day care worker that requested your imaging first. Electronically signed by: SUNSHINE ALCOCER MD, [facility] ([phone]), at 11/11/2023 1:06 PM TTE 11/05/23 Interpretation Summary Normal left ventricular size with hyperdynamic systolic function. Ejection fraction is visually 70%. There are no regional wall motion abnormalities. The right ventricle is mildly dilated with normal systolic function. There is no significant valvular disease. Compared to prior echo from 01/08/18, there are no major changes. ASSESSMENT and PLAN: Hope is a 73 y/o with HTN, AF on rivaroxaban, poorly-controlled T2DM (A1C 13), CKD, chronic indwelling suprapubic catheter requiring exchange this admission, and prior TIA presenting in transfer from [facility] with bradycardia, hypotension, and hyperglycemia. Hyperglycemia improving and appreciate DM assistance. HR overall improved. For ease of dosing will change to 300mg for tomorrow and monitor (instead of 5 50mg tabs or 100mg and 50mg tabs for 250mg). Safe for home alone per PT/OT with daily check-ins and explore daughter if can help support (for DMmanagement and rate control/medications). Son is working on getting her into a [facility] near him in [place]. Anticipate if daughter could stay with her while son explores JAIL that may be viable. Also report of bed bugs thus would need to ensure home is suitable. Ensure stable glc and HR for discharge. 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 #Atrial fibrillation - consult EP tray recs, no ppm for now - Temp pacing wire removed 11/04 - Holding home diltiazem - metop succinate qD, uptitrating for goal HR < 110 at rest - increase to 300mg for ease of dosing - Rivaroxaban 20 mg nightly #MELVA obstructive 2/2 malfunctioning SPC, resolved #MELVA, suspect prerenal #Hyperkalemia, possibly 2/2 labile hyperglyclemia - Lokelma intermittent last week - continue to monitor off - ctm K and Cr - Urology consult, tray recs, replaced SPC 11/11 - off mIVF #Hyperglycemia #Probable HHS, resolved #Poorly-controlled T2DM Last A1C 13.1 - Diabetes management following; appreciate recs - Holding home Trulicity, Jardiance, and metformin - SSI and meal associated - 58 at MN - may need to decrease short acting at night - glargine 58U - keep for now with hyperglycemia in day but monitor hypoglycemia #UTI, possibly associated with suprapubic catheter, in place for prior hx recurrent urinary retention - s/p Ceftriaxone 2g daily for 5 days (completed 11/08) # Sacral decub ulcer: - appreciate wound care consult #Housekeeping: - DVT PPx: Home rivaroxaban - Diet: Carb Control diet 60/60/75 CHO counting level 2 - Level of care: Med/ surg - Code Status: DNR but pre-arrest intubation is permitted Team Pager( Coverage 12/01): #[phone] PCP: KATHLEEN Retana [phone] IPI Certification I certify that I am a D-H credentialed attending provider with admitting privileges and that the patient meets or has met medical necessity to require an inpatient IPI level of care meeting a minimumof two midnights or is on the CMS inpatient only procedure list (status C) due to: acute kidney injury necessitating close monitoring of fluid balance such as intravenous fluids and/or titration of medication to achieve optimal effect and minimize the chance of immediate or severe side effects Idania Matthews MD 11/15/2023 * Idania Matthews MD - 11/14/2023 4:32 PM EDT Hospital Medicine Attending Daily Progress Note Admit Date: 11/05/2023 Hospital Day 9 days Active Hospital Problems Diagnosis DKA (diabetic ketoacidosis) Permanent atrial fibrillation Resolved Hospital Problems No resolved problems to display. 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 2 diabetes mellitus, with fat layer exposed Seronegative rheumatoid arthritis Heart murmur Gastroesophageal reflux Pseudophakia, both eyes Diabetic peripheral neuropathy Hypertension, essential, benign Hyperlipidemia SVT (supraventricular tachycardia) Gait instability Seronegative arthritis Osteoarthrosis, unspecified whether generalized or localized, pelvic region and thigh Osteoarthrosis, unspecified whether generalized or localized, lower leg Osteoarthrosis, unspecified whether generalized or localized, ankle and foot Nevus History of malignant melanoma History of basal cell carcinoma Personal history of malignant melanoma Rosacea Basal cell carcinoma of back Malignant melanoma Inpatient Medications: Scheduled insulin glargine (Lantus;Semglee) (100 unit/mL) subcutaneous injection 58 Units Subcutaneous Daily insulin lispro 0-25 Units Subcutaneous TID WC metoprolol succinate XL 250 mg Oral Daily insulin lispro 2-12 Units Subcutaneous Q4H DANNI cyanocobalamin (Vitamin B-12) 1,000 mcg Oral Daily sodium chloride 0.9 % (flush) 5 mL Intravenous BID rivaroxaban 20 mg Oral Daily with dinner Continuous infusions: PRN: insulin lispro, glucose 40% oral geL OR dextrose OR glucagon, sodium chloride 0.9 % (flush), lidocaine Interval History Seen by DM team Remains on 250mg Toprol - HR 90s-100s. Denies CP, SOB, fevers, chills, abdominal pain. Physical Exam Vitals Range last 24 hrs Temperature Temp: [36.4 ??C (97.5 ??F)-36.9 ??C (98.4 ??F)] Heart Rate Heart Rate: -- Blood Pressure BP: (104-146)/(70-86) Respiratory Rate Resp: [16-18] SpO2 SpO2: [93 %-100 %] Intake/Output Summary (Last 24 hours) at 11/14/2023 1632 Last data filed at 11/14/2023 1537 Gross per 24 hour Intake 2870 ml Output 1970 ml Net 900 ml No data found. Body mass index is 30.77 kg/m??. Physical Exam General: NAD, oriented HEENT: Anicteric sclera (No stethoscope on initial exam and on contact) Pulse irreg irreg Abd: Non-tender Ext: no edema LABS: Last 3 wbc, hgb, hct plt Recent Labs 11/14/23 0433 11/13/23 0008 11/12/23 0054 WBC 8.8 9.7* 10.8* HGB 10.0* 9.3* 9.3* HCT 34.3* 31.6* 31.2* PLATELET 530* 448* 441* Last 3 Lytes Recent Labs 11/14/23 0433 11/13/23 0008 11/12/23 0054 NA 142 136 136 K 4.4 5.0 5.0 CL 107 103 104 CO2 BUN 26* 34* 27* CREATININE 0.79 1.17 0.85 Last 3 LFTs Recent Labs 11/09/23 0000 11/05/23 0335 AST 20 268* ALT 47* 174* ALKPHOS 76 119* BILITOT <0.2* 0.3 BILIDIR <0.1 0.2 FSBG Trend Recent Labs 11/14/23 1209 11/14/23 0916 11/14/23 0738 11/14/23 0421 11/14/23 0010 11/13/23 2145 11/13/23 1920 11/13/23 1617 11/13/23 1353 11/13/23 1141 POCGLU 162 109 93 81 126 200* 245* 263* 171 199 MICRO: No results for input(s): URINECULTURE in the last 720 hours. No results for input(s): GRAMSTAIN, BFCX, LOWERRESPCX, TISSUECX in the last 720 hours. Recent Labs 11/05/23 0400 11/05/23 0415 BLOODCX No growth at 5 days. No growth at 5 days. ECG: Recent Labs 11/05/23 0310 DIAGLINE Atrial fibrillation Low voltage QRS Prolonged QTc Abnormal ECG When compared with ECG of 11-JAN-2018 11:06, Nonspecific T wave abnormality no longer evident in Inferior leads Confirmed by fellow MD Johnson Augustin ([id number]) on 11/05/2023 2:07:55 PM Confirmed by MD Funk Danette ([id number]) on 11/06/2023 5:30:09 PM QTCCALC 492 VASCULAR: Recent Labs 11/09/23 1643 VBTEXTRPT Department: Vascular Surgery Lab Patient: [id number] (HOPE YEE) CPT: 91390 Referring Physician: JOAQUIM GEORGES Phone: Indications: Chronic LE wound ? perfusion Diabetes mellitus: Yes Findings: Right Pressure (mm Hg) Waveform TBI Brachial Artery 134 Dorsalis Pedis (Ankle) Artery >254 Triphasic Posterior Tibial (Ankle) Artery >254 Triphasic Great Toe 113 0.84 Left Pressure (mm Hg) Waveform TBI Brachial Artery IV Dorsalis Pedis (Ankle) Artery >254 Triphasic Posterior Tibial (Ankle) Artery >254 Triphasic Great Toe 111 0.83 Interpretation: RIGHT: No significant lower extremity arterial [...] ABIs with change from previous value: Date RIGHT DP RIGHT PT RT GR TOE RT Sec TOE 1.21 1.29 0.75 ---- Current ---- ---- 0.84(+.09) ---- Date LEFT DP LEFT PT LT GR TOE LT Sec TOE 1.21 1.22 0.76 ---- Current ---- ---- 0.83(+.07) ---- End of Report IMAGING: Results for orders placed or performed during the hospital encounter of 11/05/23 XR Chest One View (Exam End: 11/05/2023 3:58 AM) Result Value WORKSTATION ID [id number] Impression Right IJ central venous catheter with tip projecting over the right atrium. I have personally reviewed the image(s) and the resident's interpretation and agree with the findings, Emeka Wolfe MD at 11/05/2023 4:37 AM Thank you for letting us participate in the care of this patient. If you are a health care provider and have any questions regarding this report, please contact the number below. For patients who have questions please contact the health adult day care worker that requested your imaging first. Abdomen & Pelvis wo Contrast (Exam End: 11/11/2023 12:20 PM) Result Value WORKSTATION ID [id number] Impression Appropriate position of the suprapubic catheter, however, persistent moderate bladder distention. Possible catheter obstruction/clog; correlate with ability to flush catheter. The overall appearance is similar to 2021 when the catheter was in appropriate position and the bladder was distended. Thank you for letting us participate in the care of this patient. If you are a health care provider and have any questions regarding this report, please contact the number below. For patients who have questions please contact the health adult day care worker that requested your imaging first. Electronically signed by: SUNSHINE ALCOCER MD, [facility] ([phone]), at 11/11/2023 1:06 PM TTE 11/05/23 Interpretation Summary Normal left ventricular size with hyperdynamic systolic function. Ejection fraction is visually 70%. There are no regional wall motion abnormalities. The right ventricle is mildly dilated with normal systolic function. There is no significant valvular disease. Compared to prior echo from 01/08/18, there are no major changes. ASSESSMENT and PLAN: Hope is a 73 y/o with HTN, AF on rivaroxaban, poorly-controlled T2DM (A1C 13), CKD, chronic indwelling suprapubic catheter requiring exchange this admission, and prior TIA presenting in transfer from [facility] with bradycardia, hypotension, and hyperglycemia. Hyperglycemia improving and appreciate DM assistance. HR overall improved. Consider from 250mg to 300mg in coming days as may be easier for dosing. Safe for home alone per PT/OT with daily check-ins and would be helpful to address with daughter ifcan help support (for DM management and rate control/medications. Son is working on getting her into a [facility] near him in [place]. Anticipate if daughter could stay with her while son explores JAIL that may be viable. Also report of bed bugs thus would need to ensure home is suitable. 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 #Atrial fibrillation - consult EP tray recs, no ppm for now - Temp pacing wire removed 11/04 - Holding home diltiazem - metop succinate qD, uptitrating for goal HR < 110 at rest - for dosing 300mg may be easier (instead of 2 dosages with 200mg and a 50mg tab) - Rivaroxaban 20 mg nightly #MELVA obstructive 2/2 malfunctioning SPC, resolved #MELVA, suspect prerenal #Hyperkalemia, possibly 2/2 labile hyperglyclemia - Lokelma 5 g - K improved today - ctm K and Cr - Urology consult, tray recs, replaced SPC 11/11 - mIVF - stop today #Hyperglycemia #Probable HHS, resolved #Poorly-controlled T2DM Last A1C 13.1 - Diabetes management following; appreciate recs - Holding home Trulicity, Jardiance, and metformin - SSI - MC - glargine #UTI, possibly associated with suprapubic catheter, in place for prior hx recurrent urinary retention - s/p Ceftriaxone 2g daily for 5 days (completed 11/08) # Sacral decub ulcer: - appreciate wound care consult #Housekeeping: - DVT PPx: Home rivaroxaban - Diet: Carb Control diet 60/60/75 CHO counting level 2 - Level of care: Med/ surg - Code Status: DNR but pre-arrest intubation is permitted Team Pager( Coverage 12/01): #[phone] PCP: KATHLEEN Retana [phone] IPI Certification I certify that I am a D-H credentialed attending provider with admitting privileges and that the patient meets or has met medical necessity to require an inpatient IPI level of care meeting a minimumof two midnights or is on the [facility] inpatient only procedure list (status C) due to: acute kidney injury necessitating close monitoring of fluid balance such as intravenous fluids and/or titration of medication to achieve optimal effect and minimize the chance of immediate or severe side effects Idania Matthews MD 11/14/2023 * Angelika Woody - 11/14/2023 7:50 AM EDT Inpatient Medicine Progress Note Interval Events/Subjective: BGs okay overnight, with low of 72 this AM. Appropriate output from SPT per nursing note. Feeling well this morning. No chest pain, sob, abdominal pain, flank pain, dysuria. Wondering if she can take the pressure stockings off. Physical Exam: Last value Range last 24 hrs Temperature Temp: 36.9 ??C (98.4 ??F) Temp: [36.4 ??C (97.5 ??F)-36.9 ??C (98.4 ??F)] Heart Rate Heart Rate: 91 Heart Rate: -- Blood Pressure BP: 136/82 BP: (122-146)/(68-86) Respiratory Rate Resp: 17 Resp: [16-18] SpO2 SpO2: 100 % SpO2: [93 %-100 %] Intake/Output Summary (Last 24 hours) at 11/14/2023 1149 Last data filed at 11/14/2023 1046 Gross per 24 hour Intake 2930 ml Output 2410 ml Net 520 ml - nursing notes and vitals reviewed Constitutional: NAD Neck: No JVD Respiratory: no wheezing or crackles CV: irregular, no murmurs GI: soft, NT, ND. Ext: irregular radial pulses 2+ Lymph: no peripheral edema, wearing compression bandages Musculoskeletal: no gross deformities noted Neuro: A+O x3, no neuro deficits noted Skin/Lines: multiple chronic wounds, sacral ulcer with dressing in place, suprapubic catheter in place draining clear urine Labs: Labs reviewed and notable for: - POC glucose: 72 - 263 - WBC 8.8 - Hb 10 (stable 9-10 during this admission) - Lytes normal - Cr 0.79, BUN 26 - Mag 0.66 (repleted) Microbiology: BCx: NGTD UCx: Not done Pertinent radiology/diagnostic studies: NA Assessment: Hope Yee is a 73 y.o. female with PMH of HTN, atrial fibrillation on rivaroxaban, poorly-controlled T2DM, CKD, chronic indwelling suprapubic catheter, and prior TIA presenting in transfer from [facility] with bradycardia, hypotension, and hyperglycemia. Plan: #Bradycardia - resolved #Atrial fibrillation # Elevated BNP #Hx of ?tachybrady syndrome HR in the 30s-40s at [facility], meds were held and temporary pacing wire was placed. HR normalized to 90s-100s after hyperglycemia tx. Temp pacing wire removed 11/04. Bradycardia was likely the result of accumulation of beta blockade and calcium channel blockade in the setting of a prerenal MELAV. Slowly uptrating home medications (home dose of metoprolol succinate 100mg BID and diltiazem 300mg QD). Anticoagulated on home dose of rivaroxaban. EP consulted, not recommending pacemaker placement at this time. - Telemetry - Holding home diltiazem - 250mg metoprolol succinate QD, titrate as needed - Rivaroxaban 20 mg nightly #MELVA - improving, likely prerenal #Hyperkalemia #Pseudohyponatremia Her blood sugars have been very elevated at home, seemingly in the 400s-600s quite frequently, which would have led to an osmotic diuresis. All of this would have contributed to a prerenal MELVA and associated hyperkalemia. Cr 1.43 on admission, now improved to 0.91. Seems most likely that her hyponatremia was pseudohyponatremia in setting of hyperglycemia. Discontinued daily lokelma on 11/07 due tonormalizing potassium. On 11/09, increasing BUN and O>I, although normal creatinine. On 11/10, increasing creatinine >0.3 over 48 hours, meeting the definition for MELVA, coupled with decreased UOPand bladder scan showing 905mL although interpretation difficult in the context of morbid obesity. CT showed distended bladder with SPT in correct place. Urology consulted, recommended bladder decompression with barber and replaced SPT on 11/11. Creatinine and BUN elevated on 11/12, no evidence of obstruction at this time so potentially pre- renal, resolved on 11/13 after fluid administration. - Urology consulted, appreciate recs - Daily BMP - Monitor for retention - Holding off on additional IV fluids given pulmonary vascular congestion #Hyperglycemia #Probable HHS #Poorly-controlled T2DM Glucose in the 500s-700s at presentation, more likely HHS than DKA due to normal AG and no ketones.Last A1C 13.1. Insulin gtt started then stopped afternoon of 11/04, restarted in evening then stopped on 11/05 morning. This episode seems to have been precipitated by both a course of diarrhea due to a new medication along with missing multiple doses of her medications per week. - Diabetes management following; appreciate the assistance - Holding home Trulicity, Jardiance, and metformin - 1:4 mealtime and snack insulin, added snack insulin on 11/08. 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 Unclear whether she was having symptoms, but she did endorse possible fevers. Urinalysis likely shows contamination over infection, but patient is athigh infection risk with indwelling catheter. Completed 5-day course of ceftriaxone 2g daily 11/04-11/08. Changed suprapubic catheter 11/05, again on 11/11. #Wounds - Followed peripherally by wound care #Vitamin B12 - Started B12 oral supplementation on 11/09 # Housekeeping Diet: Carb-controlled full diet Family Update: NA DVT: Xarelto Code Status: Do NOT Attempt CPR - Inpatient PCP: KATHLEEN Retana at [phone] Angelika Woody Pager # [phone] * Paola Ramirez DT - 11/13/2023 3:21 PM EDT Nutrition Services Note - Low Nutrition Acuity Hope eYe is a 73 y.o. female Reason for intervention: hospital day 9 Nutrition Plan: Continue current diet Encourage good po Vitamin B12 and insulin noted Wound noted Patient screened for hospital length of stay and scenario writer attempted to meet pt at bedside, unsuccessful. Chart reviewed per formed. Pt has excellent po intakes recorded at 75-100% over the last 4 days per flowsheets. According to dining services, pt ordered ~ 1812kcals/day within the same duration. No wt loss observed per graph. Clinical Nutrition to monitor and follow up Active Orders Diet Carb Control diet 60/60/75 CHO counting level 2 Frequency: Effective Now Number of Occurrences: Until Specified Admit Weight: 87.8 kg Estimated body mass index is 30.77 kg/m?? as calculated from the following: Height as of this encounter: 168.9 cm (5' 6.5). Weight as of this encounter: 87.8 kg (193 lb 9 oz). Wt Readings from Last 5 Encounters: 11/05/23 87.8 kg (193 lb 9 oz) 11/11/23 87.8 kg (193 lb 9 oz) 01/11/18 94.7 kg (208 lb 12.4 oz) 10/06/11 96.6 kg (213 lb) *The following information was obtained via pt chart* Weight loss: none Appetite: Excellent (75%-100%) Food allergies:no known food allergies Chewing/Swallowing difficulty: none Nausea/Vomiting: no nausea and no vomiting Last Bowel Movement: 11/12/23 Patient education / questions: all nutrition related questions answered at this time Nutrition services to follow weekly through hospital course unless consulted in the interim. [facility] Provider * Zoe Cleveland, PSYCHOLOGICAL OPERATIONS SPECIALIST - 11/13/2023 1:55 PM EDT Follow Up Diabetes Consult Patient Interview Spent time today reviewing patient's glucose levels, insulin use and chart notes. Reviewed recommendations with patient . Objective Temp: [36.4 ??C (97.5 ??F)-37.1 ??C (98.8 ??F)] Heart Rate: -- Resp: [18] BP: (118-137)/(69-87) SpO2: [93 %-97 %] Heart Rate from SpO2: [82 bpm-104 bpm] Current Regimen from previous note 1. Glargine 40 units in the morning (starting tomorrow) 2.Lispro 1unit: 5 gm carb ratio for each meal and snack 3.Lispro 1:10>140 Recent Glucose Levels Recent Labs 11/13/23 1353 11/13/23 1141 11/13/23 0934 11/13/23 0756 11/13/23 0339 11/13/23 0023 11/12/23 20211/12/23 1758 11/12/23 1548 11/12/23 1341 11/12/23 1226 11/12/23 0817 POCGLU 171 199 115 101 99 94 88 215* 338* 284* 245* 147 ASSESSMENT Patient is a 73 y.o. years old female with PMH significant for DM (Last A1C of 13.1%) who was admitted on 11/05/2023 for DKA. Diabetes uncontrolled and currently complicated by unknown insulin requirements. Currently with variability of blood glucose levels while hospitalized requiring adjustment of insulin regimen and DM medications. Patient used 117 units yesterday. Recommend 58 of glargine and 1:4 carb ratio PLAN 1. Glargine 58 units in the morning (starting tomorrow) 2.Lispro 1unit: 4 gm carb ratio for each meal and snack 3.Lispro 1:10>140 Zoe Cleveland APRN [facility] [facility] Diabetes Management Pager [phone] 35 minute visit was spent evaluating diabetes and treatment plan, reviewing all glucose and insulindata as well as relevant laboratory results , and coordination of care on the inpatient unit including nursing and primary team. Discharge considerations: discontinue SGLT2. Consider reducing Metformin. Diabetes Discharge Instructions Please test blood sugars 4 times daily prior to breakfast, lunch, dinner, and bedtime. Please test blood sugars with any symptoms. Please work on eating a diet that is lower in fat and carbohydrates. Please work on staying active.The goal is thirty minutes daily, as tolerated. Instructions for Lantus Insulin (LONG ACTING) Please inject Lantus 58 units every morning. If your fasting blood sugars are above 150mg/dl two days in a row, please increase your Lantus by 2units. If your fasting blood sugars are below 90mg/dl two days in a row, please decrease your Lantus by 2 units. This dose now becomes your new daily dose unless it need to be further adjusted based on future glucose readings. Instructions for Mealtime Humalog Insulin While in the hospital: Your insulin was based on 1 units for every 4 grams of carbohydrates. Your average meal sizes were between 40-70 grams of carbohydrates. The below meal doses are based on that information. Please inject a base dose of Humalog 12 units with meals. If you are eating a larger meal, please increase your Humalog to 15units. If you are eating a smaller meal, please decrease your Humalog to 10 units. If you are not eating any carbohydrates or skipping a meal, please skip base dose of Humalog. If your blood sugar before a meal is elevated, please add the following correction of 1 unit for every 10 points above a blood sugar of 140mg/dl . Please follow the scale below. This is to be added to you base dose of Humalog. Your correction dose is 1 unit for every 10 points that your BG is above 140. Which means 1 units of insulin will decrease your blood glucose level by 10 points. ADD the following insulin if your before-meal BG is higher than 140: Blood Sugar HUMALOG DOSE 141-150 ADD 1 unit 151-160 ADD 2 units 161-170 ADD 3 units 171-180 ADD 4 units 181-190 ADD 5 units 191-200 ADD 6 units 201-210 ADD 7 units 211-220 ADD 8 units 221-230 ADD 9 units 231-240 ADD 10 units 241-250 ADD 11 units 251-260 ADD 12 units 261-270 ADD 13 units 271-280 ADD 14 units 281-290 ADD 15 units 291-300 ADD 16 units >300 or HI ADD 17 units and call Doctor Please remember to take your Humalog at the start of your meal. 1. If you forget to take it at the start of your meal and it has been less than an hour, please take the full amount of insulin you had calculated before starting to eat. 2. If it has been over an hour since you started eating, please recheck your blood sugar and give acorrection only. 3. Try to stay active and drink lots of water, this will help bring down your blood sugars. Also try an avoid eating additional carbohydrates. Remember that blood sugars can be elevated by other thing than carbohydrates. So it is important tocheck prior to meal times even if you are not eating and give correction dose. NEW TO YOU : High Blood Sugar (Hyperglycemia) and Ketones When blood sugar is >180 the kidneys attempt to rid the body of excess glucose by producing moreurine. You may to need to use the bathroom more frequently. These occasions include periods of stress, illness, over-eating, fasting, and lack of exercise. High blood sugars are generally not an emergency. You could become hernandez or experience emotional swings. Occasionally, high blood sugars indicate a more serious problem! KETONES Ketones are made when the body lacks insulin and is using fat for energy. If allowed to build up inthe body, they can cause YOU to have nausea, vomiting, and severe illness. CHECK FOR KETONES with ketone blood strips or ketone urine strips When blood sugar is > 250 When YOU ARE ill, don't feel well or are having abdominal pain. If no ketones are present, this is not an urgent situation. Drink sugar-free fluids such as water. If ketones are positive TAKE extra insulin for high blood sugars - add 25-50% more to your correction. Example. If correction dose for 200 is 2 units, take 3 units. Continue taking extra correction until Ketones are negative and BG are back under 200. Drink lots of sugar-free fluids Continue testing ketones every 4 hours until negative. If Ketones are positive, and you cannot eat or drink because of nausea/vomiting, go to the emergency room. Treatment of Low Blood Sugar (Hypoglycemia) If your BG is lower than 80, you are likely to feel shaky, sweaty and lightheaded. This is a signalthat your body needs more sugar. Quickly eat [...] Understanding the cause my help you to avoid another low BG in the future. Please test blood sugars prior to driving, make sure glucose levels are greater than 100mg/dl. If not have a snack and retest blood sugars in 15 minutes. Please carry a glucose source on you at all times. If blood sugar prior to bed is less than 110mg/dl, have a small 15 g of carbohydrate snack. Call your doctor for blood sugars less than 80 or greater than 300 twice in one day to have your insulin doses adjusted. * Francis Roberts MD - 11/13/2023 1:43 PM EDT Hospital Medicine Attending Daily Progress Note Admit Date: 11/05/2023 Hospital Day 8 days Active Hospital Problems Diagnosis DKA (diabetic ketoacidosis) Permanent atrial fibrillation Resolved Hospital Problems No resolved problems to display. 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 2 diabetes mellitus, with fat layer exposed Seronegative rheumatoid arthritis Heart murmur Gastroesophageal reflux Pseudophakia, both eyes Diabetic peripheral neuropathy Hypertension, essential, benign Hyperlipidemia SVT (supraventricular tachycardia) Gait instability Seronegative arthritis Osteoarthrosis, unspecified whether generalized or localized, pelvic region and thigh Osteoarthrosis, unspecified whether generalized or localized, lower leg Osteoarthrosis, unspecified whether generalized or localized, ankle and foot Nevus History of malignant melanoma History of basal cell carcinoma Personal history of malignant melanoma Rosacea Basal cell carcinoma of back Malignant melanoma Inpatient Medications: Scheduled insulin glargine (Lantus;Semglee) (100 unit/mL) subcutaneous injection 58 Units Subcutaneous Daily insulin lispro 0-25 Units Subcutaneous TID WC metoprolol succinate XL 250 mg Oral Daily insulin lispro 2-12 Units Subcutaneous Q4H DANNI cyanocobalamin (Vitamin B-12) 1,000 mcg Oral Daily sodium chloride 0.9 % (flush) 5 mL Intravenous BID rivaroxaban 20 mg Oral Daily with dinner Continuous infusions: sodium chloride 0.9% PRN: insulin lispro, glucose 40% oral geL OR dextrose OR glucagon, sodium chloride 0.9 % (flush), lidocaine Interval History NAEO No complaints Physical Exam Vitals Range last 24 hrs Temperature Temp: [36.4 ??C (97.5 ??F)-37.1 ??C (98.8 ??F)] Heart Rate Heart Rate: -- Blood Pressure BP: (118-137)/(69-87) Respiratory Rate Resp: [18] SpO2 SpO2: [93 %-97 %] Intake/Output Summary (Last 24 hours) at 11/13/2023 1343 Last data filed at 11/13/2023 1200 Gross per 24 hour Intake 1540 ml Output 1735 ml Net -195 ml No data found. Body mass index is 30.77 kg/m??. Physical Exam General: NAD, alert and oriented HEENT: EOMI, MMM CV: radial pulses 2+ bl, IRR Lungs: norm WOB Abd: NTND Ext: no edema LABS: Last 3 wbc, hgb, hct plt Recent Labs 11/13/23 0008 11/12/23 0054 11/11/23 0513 WBC 9.7* 10.8* 11.0* HGB 9.3* 9.3* 10.0* HCT 31.6* 31.2* 33.4* PLATELET 448* 441* 431* Last 3 Lytes Recent Labs 11/13/23 0008 11/12/23 0054 11/11/23 0020 NA 136 136 133* K 5.0 5.0 4.9 CL 103 104 99 CO2 BUN 34* 27* 22* CREATININE 1.17 0.85 1.18 Last 3 LFTs Recent Labs 11/09/23 0000 11/05/23 0335 AST 20 268* ALT 47* 174* ALKPHOS 76 119* BILITOT <0.2* 0.3 BILIDIR <0.1 0.2 FSBG Trend Recent Labs 11/13/23 1141 11/13/23 0934 11/13/23 0756 11/13/23 0339 11/13/23 0023 11/12/23 2021 11/12/23 1758 11/12/23 1548 11/12/23 1341 11/12/23 1226 POCGLU 199 115 101 99 94 88 215* 338* 284* 245* MICRO: No results for input(s): URINECULTURE in the last 720 hours. No results for input(s): GRAMSTAIN, BFCX, LOWERRESPCX, TISSUECX in the last 720 hours. Recent Labs 11/05/23 0400 11/05/23 0415 BLOODCX No growth at 5 days. No growth at 5 days. ECG: Recent Labs 11/05/23 0310 DIAGLINE Atrial fibrillation Low voltage QRS Prolonged QTc Abnormal ECG When compared with ECG of 11-JAN-2018 11:06, Nonspecific T wave abnormality no longer evident in Inferior leads Confirmed by fellow MD Johnson Augustin ([id number]) on 11/05/2023 2:07:55 PM Confirmed by MD Funk Danette ([id number]) on 11/06/2023 5:30:09 PM QTCCALC 492 VASCULAR: Recent Labs 11/09/23 1643 VBTEXTRPT Department: Vascular Surgery Lab Patient: [id number] (HOPE YEE) CPT: 28291 Referring Physician: JOAQUIM GEORGES Phone: Indications: Chronic LE wound ? perfusion Diabetes mellitus: Yes Findings: Right Pressure (mm Hg) Waveform TBI Brachial Artery 134 Dorsalis Pedis (Ankle) Artery >254 Triphasic Posterior Tibial (Ankle) Artery >254 Triphasic Great Toe 113 0.84 Left Pressure (mm Hg) Waveform TBI Brachial Artery IV Dorsalis Pedis (Ankle) Artery >254 Triphasic Posterior Tibial (Ankle) Artery >254 Triphasic Great Toe 111 0.83 Interpretation: RIGHT: No significant lower extremity arterial [...] ABIs with change from previous value: Date RIGHT DP RIGHT PT RT GR TOE RT Sec TOE 1.21 1.29 0.75 ---- Current ---- ---- 0.84(+.09) ---- Date LEFT DP LEFT PT LT GR TOE LT Sec TOE 1.21 1.22 0.76 ---- Current ---- ---- 0.83(+.07) ---- End of Report IMAGING: Results for orders placed or performed during the hospital encounter of 11/05/23 XR Chest One View (Exam End: 11/05/2023 3:58 AM) Result Value WORKSTATION ID [id number] Impression Right IJ central venous catheter with tip projecting over the right atrium. I have personally reviewed the image(s) and the resident's interpretation and agree with the findings, Emeka Wolfe MD at 11/05/2023 4:37 AM Thank you for letting us participate in the care of this patient. If you are a health care provider and have any questions regarding this report, please contact the number below. For patients who have questions please contact the health adult day care worker that requested your imaging first. Abdomen & Pelvis wo Contrast (Exam End: 11/11/2023 12:20 PM) Result Value WORKSTATION ID [id number] Impression Appropriate position of the suprapubic catheter, however, persistent moderate bladder distention. Possible catheter obstruction/clog; correlate with ability to flush catheter. The overall appearance is similar to 2021 when the catheter was in appropriate position and the bladder was distended. Thank you for letting us participate in the care of this patient. If you are a health care provider and have any questions regarding this report, please contact the number below. For patients who have questions please contact the health adult day care worker that requested your imaging first. Electronically signed by: SUNSHINE ALCOCER MD, [facility] ([phone]), at 11/11/2023 1:06 PM TTE 11/05/23 Interpretation Summary Normal left ventricular size with hyperdynamic systolic function. Ejection fraction is visually 70%. There are no regional wall motion abnormalities. The right ventricle is mildly dilated with normal systolic function. There is no significant valvular disease. Compared to prior echo from 01/08/18, there are no major changes. ASSESSMENT and PLAN: Hope Yee is a 73 y.o. female with PMH of HTN, atrial fibrillation on rivaroxaban, poorly-controlled T2DM, CKD, chronic indwelling suprapubic catheter, and prior TIA presenting in transfer from [facility] with bradycardia, hypotension, and hyperglycemia. Somewhat challenge disposition. Safe for home alone per PT/OT with daily check- ins but I have concerns she will not be able to manage her home or medications on her own as she likely was taking her rate control and diabetes medications inconsistently and family reported her home is infested with bed bugs. Son is working on getting her into a [facility] near him in [place] which would be her preferred discharge plan as well. 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 #Atrial fibrillation - consult EP tray recs, no ppm for now - Temp pacing wire removed 11/04 - Holding home diltiazem - metop succinate qD, uptitrating for goal HR < 110 at rest - Rivaroxaban 20 mg nightly #MELVA obstructive 2/2 malfunctioning SPC, resolved #MELVA, suspect prerenal #Hyperkalemia, possibly 2/2 labile hyperglyclemia - Lokelma 5 g today - ctm K and Cr - Urology consult, tray recs, replaced SPC 11/11 - mIVF until tomorrow morning #Hyperglycemia #Probable HHS, resolved #Poorly-controlled T2DM Last A1C 13.1 - Diabetes management following; appreciate recs - Holding home Trulicity, Jardiance, and metformin - SSI - MC - glargine #UTI, possibly associated with suprapubic catheter, in place for prior hx recurrent urinary retention - s/p Ceftriaxone 2g daily for 5 days (completed 11/08) # Sacral decub ulcer: - appreciate wound care consult #Housekeeping: - DVT PPx: Home rivaroxaban - Diet: Carb Control diet 60/60/75 CHO counting level 2 - Level of care: Med/ surg - Code Status: DNR but pre-arrest intubation is permitted Team Pager( Coverage 12/01): #[phone] PCP: KATHLEEN Retana [phone] IPI Certification I certify that I am a [facility] credentialed attending provider with admitting privileges and that the patient meets or has met medical necessity to require an inpatient IPI level of care meeting a minimumof two midnights or is on the [facility] inpatient only procedure list (status C) due to: acute kidney injury necessitating close monitoring of fluid balance such as intravenous fluids and/or titration of medication to achieve optimal effect and minimize the chance of immediate or severe side effects Francis Roberts MD 11/13/2023 * Angelika Woody - 11/13/2023 7:48 AM EDT Inpatient Medicine Progress Note Interval Events/Subjective: BGs okay overnight. Appropriate output from SPT per nursing note. Feeling well this morning. No chest pain, sob, abdominal pain, flank pain, dysuria. Physical Exam: Last value Range last 24 hrs Temperature Temp: 36.8 ??C (98.2 ??F) Temp: [36.4 ??C (97.5 ??F)-37.3 ??C (99.1 ??F)] Heart Rate Heart Rate: 91 Heart Rate: -- Blood Pressure BP: 137/87 BP: (118-137)/(69-87) Respiratory Rate Resp: 18 Resp: [18] SpO2 SpO2: 96 % SpO2: [93 %-99 %] Intake/Output Summary (Last 24 hours) at 11/13/2023 1139 Last data filed at 11/13/2023 0753 Gross per 24 hour Intake 440 ml Output 1625 ml Net -1185 ml - nursing notes and vitals reviewed Constitutional: NAD Neck: No JVD Respiratory: no wheezing or crackles CV: irregular, no murmurs GI: soft, NT, ND. Ext: irregular radial pulses 2+ Lymph: no peripheral edema, wearing compression bandages Musculoskeletal: no gross deformities noted Neuro: A+O x3, no neuro deficits noted Skin/Lines: multiple chronic wounds, sacral ulcer with dressing in place, suprapubic catheter in place draining clear urine Labs: Labs reviewed and notable for: - POC glucose: 133-306 - WBC 9.7 (from 10.8 yesterday) - Hb 9.3 (stable 9-10 during this admission) - Lytes normal - Cr 1.17 uptrending (0.85 yesterday), but BUN increased from 27 to 34 - Mag 0.72 Microbiology: BCx: NGTD UCx: Not done Pertinent radiology/diagnostic studies: NA Assessment: Hope Yee is a 73 y.o. female with PMH of HTN, atrial fibrillation on rivaroxaban, poorly-controlled T2DM, CKD, chronic indwelling suprapubic catheter, and prior TIA presenting in transfer from [facility] with bradycardia, hypotension, and hyperglycemia. Plan: #Bradycardia - resolved #Atrial fibrillation # Elevated BNP #Hx of ?tachybrady syndrome HR in the 30s-40s at [facility], meds were held and temporary pacing wire was placed. HR normalized to 90s-100s after hyperglycemia tx. Temp pacing wire removed 11/04. Bradycardia was likely the result of accumulation of beta blockade and calcium channel blockade in the setting of a prerenal MELVA. Slowly uptrating home medications (home dose of metoprolol succinate 100mg BID and diltiazem 300mg QD). Anticoagulated on home dose of rivaroxaban. EP consulted, not recommending pacemaker placement at this time. - Telemetry - Holding home diltiazem - 250mg metoprolol succinate QD, titrate as needed - Rivaroxaban 20 mg nightly #MELVA - improving, likely prerenal #Hyperkalemia #Pseudohyponatremia Her blood sugars have been very elevated at home, seemingly in the 400s-600s quite frequently, which would have led to an osmotic diuresis. All of this would have contributed to a prerenal MELVA and associated hyperkalemia. Cr 1.43 on admission, now improved to 0.91. Seems most likely that her hyponatremia was pseudohyponatremia in setting of hyperglycemia. Discontinued daily lokelma on 11/07 due tonormalizing potassium. On 11/09, increasing BUN and O>I, although normal creatinine. On 11/10, increasing creatinine >0.3 over 48 hours, meeting the definition for MELVA, coupled with decreased UOPand bladder scan showing 905mL although interpretation difficult in the context of morbid obesity. CT showed distended bladder with SPT in correct place. Urology consulted, recommended bladder decompression with barber and replaced SPT on 11/11. Creatinine and BUN elevated on 11/12, no evidence of obstruction at this time so potentially pre-renal. - Urology consulted, appreciate recs - Daily BMP - Monitor for retention - Holding off on additional IV fluids given pulmonary vascular congestion #Hyperglycemia #Probable HHS #Poorly-controlled T2DM Glucose in the 500s-700s at presentation, more likely HHS than DKA due to normal AG and no ketones.Last A1C 13.1. Insulin gtt started then stopped afternoon of 11/04, restarted in evening then stopped on 11/05 morning. This episode seems to have been precipitated by both a course of diarrhea due to a new medication along with missing multiple doses of her medications per week. - Diabetes management following; appreciate the assistance - Holding home Trulicity, Jardiance, and metformin - 1:4 mealtime and snack insulin, added snack insulin on 11/08. 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 Unclear whether she was having symptoms, but she did endorse possible fevers. Urinalysis likely shows contamination over infection, but patient is athigh infection risk with indwelling catheter. Completed 5-day course of ceftriaxone 2g daily 11/04-11/08. Changed suprapubic catheter 11/05, again on 11/11. #Wounds - Followed peripherally by wound care #Vitamin B12 - Started B12 oral supplementation on 11/09 # Housekeeping Diet: Carb-controlled full diet Family Update: NA DVT: Xarelto Code Status: Do NOT Attempt CPR - Inpatient PCP: KATHLEEN Retana at [phone] Angelika Manrique [place] Pager # [phone] * Francis Roberts MD - 11/12/2023 3:55 PM EDT Hospital Medicine Attending Daily Progress Note Admit Date: 11/05/2023 Hospital Day 7 days Active Hospital Problems Diagnosis DKA (diabetic ketoacidosis) Permanent atrial fibrillation Resolved Hospital Problems No resolved problems to display. 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 2 diabetes mellitus, with fat layer exposed Seronegative rheumatoid arthritis Heart murmur Gastroesophageal reflux Pseudophakia, both eyes Diabetic peripheral neuropathy Hypertension, essential, benign Hyperlipidemia SVT (supraventricular tachycardia) Gait instability Seronegative arthritis Osteoarthrosis, unspecified whether generalized or localized, pelvic region and thigh Osteoarthrosis, unspecified whether generalized or localized, lower leg Osteoarthrosis, unspecified whether generalized or localized, ankle and foot Nevus History of malignant melanoma History of basal cell carcinoma Personal history of malignant melanoma Rosacea Basal cell carcinoma of back Malignant melanoma Inpatient Medications: Scheduled [START ON 11/13/2023] metoprolol succinate XL 250 mg Oral Daily insulin lispro 0-20 Units Subcutaneous TID WC [START ON 11/13/2023] insulin glargine (Lantus;Semglee) (100 unit/mL) subcutaneous injection 55 Units Subcutaneous Daily insulin lispro 2-12 Units Subcutaneous Q4H DANNI cyanocobalamin (Vitamin B-12) 1,000 mcg Oral Daily sodium chloride 0.9 % (flush) 5 mL Intravenous BID rivaroxaban 20 mg Oral Daily with dinner Continuous infusions: PRN: insulin lispro, glucose 40% oral geL OR dextrose OR glucagon, sodium chloride 0.9 % (flush), lidocaine Interval History NAEO No complaints Physical Exam Vitals Range last 24 hrs Temperature Temp: [36.6 ??C (97.9 ??F)-37.3 ??C (99.1 ??F)] Heart Rate Heart Rate: -- Blood Pressure BP: (118-134)/(69-80) Respiratory Rate Resp: -- SpO2 SpO2: [93 %-99 %] Intake/Output Summary (Last 24 hours) at 11/12/20231954 Last data filed at 11/12/2023 1553 Gross per 24 hour Intake 400 ml Output 1585 ml Net -1185 ml No data found. Body mass index is 30.77 kg/m??. Physical Exam General: NAD, alert and oriented HEENT: EOMI, MMM CV: radial pulses 2+ bl, IRR Lungs: norm WOB Abd: NTND Ext: no edema LABS: Last 3 wbc, hgb, hct plt Recent Labs 11/12/23 0054 11/11/23 0513 11/10/23 0000 WBC 10.8* 11.0* 9.3 HGB 9.3* 10.0* 9.4* HCT 31.2* 33.4* 31.1* PLATELET 441* 431* 401* Last 3 Lytes Recent Labs 11/12/23 0054 11/11/23 0020 11/10/23 0000 NA 136 133* 134* K 5.0 4.9 4.6 CL 104 99 100 CO2 BUN 27* 22* 21* CREATININE 0.85 1.18 0.95 Last 3 LFTs Recent Labs 11/09/23 0000 11/05/23 0335 AST 20 268* ALT 47* 174* ALKPHOS 76 119* BILITOT <0.2* 0.3 BILIDIR <0.1 0.2 FSBG Trend Recent Labs 11/12/23 1758 11/12/23 1548 11/12/23 1341 11/12/23 1226 11/12/23 0817 11/12/23 0407 11/12/23 0052 11/11/23 2141 11/11/23201011/11/23 1828 POCGLU 215* 338* 284* 245* 147 108 95 162 263* 245* MICRO: No results for input(s): URINECULTURE in the last 720 hours. No results for input(s): GRAMSTAIN, BFCX, LOWERRESPCX, TISSUECX in the last 720 hours. Recent Labs 11/05/23 0400 11/05/23 0415 BLOODCX No growth at 5 days. No growth at 5 days. ECG: Recent Labs 11/05/23 0310 DIAGLINE Atrial fibrillation Low voltage QRS Prolonged QTc Abnormal ECG When compared with ECG of 11-JAN-2018 11:06, Nonspecific T wave abnormality no longer evident in Inferior leads Confirmed by fellow MD Johnson Augustin ([id number]) on 11/05/2023 2:07:55 PM Confirmed by MD Funk Danette ([id number]) on 11/06/2023 5:30:09 PM QTCCALC 492 VASCULAR: Recent Labs 11/09/23 1643 VBTEXTRPT Department: Vascular Surgery Lab Patient: [id number] (HOPE YEE) CPT: 66872 Referring Physician: JOAQUIM GEORGES Phone: Indications: Chronic LE wound ? perfusion Diabetes mellitus: Yes Findings: Right Pressure (mm Hg) Waveform TBI Brachial Artery 134 Dorsalis Pedis (Ankle) Artery >254 Triphasic Posterior Tibial (Ankle) Artery >254 Triphasic Great Toe 113 0.84 Left Pressure (mm Hg) Waveform TBI Brachial Artery IV Dorsalis Pedis (Ankle) Artery >254 Triphasic Posterior Tibial (Ankle) Artery >254 Triphasic Great Toe 111 0.83 Interpretation: RIGHT: No significant lower extremity arterial [...] ABIs with change from previous value: Date RIGHT DP RIGHT PT RT GR TOE RT Sec TOE 1.21 1.29 0.75 ---- Current ---- ---- 0.84(+.09) ---- Date LEFT DP LEFT PT LT GR TOE LT Sec TOE 1.21 1.22 0.76 ---- Current ---- ---- 0.83(+.07) ---- End of Report IMAGING: Results for orders placed or performed during the hospital encounter of 11/05/23 XR Chest One View (Exam End: 11/05/2023 3:58 AM) Result Value WORKSTATION ID [id number] Impression Right IJ central venous catheter with tip projecting over the right atrium. I have personally reviewed the image(s) and the resident's interpretation and agree with the findings, Emeka Wolfe MD at 11/05/2023 4:37 AM Thank you for letting us participate in the care of this patient. If you are a health care provider and have any questions regarding this report, please contact the number below. For patients who have questions please contact the health adult day care worker that requested your imaging first. Abdomen & Pelvis wo Contrast (Exam End: 11/11/2023 12:20 PM) Result Value WORKSTATION ID [id number] Impression Appropriate position of the suprapubic catheter, however, persistent moderate bladder distention. Possible catheter obstruction/clog; correlate with ability to flush catheter. The overall appearance is similar to 2021 when the catheter was in appropriate position and the bladder was distended. Thank you for letting us participate in the care of this patient. If you are a health care provider and have any questions regarding this report, please contact the number below. For patients who have questions please contact the health adult day care worker that requested your imaging first. 11/05/23 Interpretation Summary Normal left ventricular size with hyperdynamic systolic function. Ejection fraction is visually 70%. There are no regional wall motion abnormalities. The right ventricle is mildly dilated with normal systolic function. There is no significant valvular disease. Compared to prior echo from 01/08/18, there are no major changes. ASSESSMENT and PLAN: Hope Yee is a 73 y.o. female with PMH of HTN, atrial fibrillation on rivaroxaban, poorly-controlled T2DM, CKD, chronic indwelling suprapubic catheter, and prior TIA presenting in transfer from [facility] with bradycardia, hypotension, and hyperglycemia. 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 #Atrial fibrillation - consult EP tray recs, no ppm for now - Temp pacing wire removed 11/04 - Holding home diltiazem - metop succinate qD, uptitrating for goal HR < 110 at rest - Rivaroxaban 20 mg nightly #MELVA suspect obstructive 2/2 malfunctioning SPC #Hyperkalemia, possible 2/2 labile hyperglyclemia - Lokelma 5 g today - ctm K and Cr - Urology consult, tray recs, replaced SPC 11/11 #Hyperglycemia #Probable HHS, resolved #Poorly-controlled T2DM Last A1C 13.1 - Diabetes management following; appreciate recs - Holding home Trulicity, Jardiance, and metformin - SSI - MC - glargine #UTI, possibly associated with suprapubic catheter, in place for prior hx recurrent urinary retention - s/p Ceftriaxone 2g daily for 5 days (completed 11/08) # Sacral decub ulcer: - appreciate wound care consult #Housekeeping: - DVT PPx: Home rivaroxaban - Diet: Carb Control diet 60/60/75 CHO counting level 2 - Level of care: Med/ surg - Code Status: DNR but pre-arrest intubation is permitted Team Pager( Coverage 12/01): #[phone] PCP: KATHLEEN Retana [phone] Attestation: IPI Certification I certify that I am a D-H credentialed attending provider with admitting privileges and that the patient meets or has met medical necessity to require an inpatient IPI level of care meeting a minimumof two midnights or is on the [facility] inpatient only procedure list (status C) due to: labile serum glucose with frequent hyperglycemia c/b hyperkalemia and monitoring new suprapubic catheter for proper functioning w/o obstruction Francis Roberts MD 11/12/2023 * Angelika Woody - 11/12/2023 7:59 AM EDT Inpatient Medicine Progress Note Interval Events/Subjective: High Bgs overnight (high 200s), insulin dosage increased. UOP throughout night (200mL through SPT, 1L through barber since 8pm). Feeling well this morning, like she is getting stronger. No chest pain, sob, abdominal pain, flank pain, dysuria. Physical Exam: Last value Range last 24 hrs Temperature Temp: 36.6 ??C (97.9 ??F) Temp: [36.6 ??C (97.9 ??F)-36.9 ??C (98.4 ??F)] Heart Rate Heart Rate: 91 Heart Rate: -- Blood Pressure BP: 130/71 BP: (115-130)/(69-78) Respiratory Rate Resp: 13 Resp: -- SpO2 SpO2: 99 % SpO2: [95 %-99 %] - nursing notes and vitals reviewed Constitutional: NAD Neck: No JVD Respiratory: no wheezing or crackles CV: irregular, no murmurs GI: soft, NT, ND. Ext: irregular radial pulses 2+ Lymph: no peripheral edema, wearing compression bandages Musculoskeletal: no gross deformities noted Neuro: A+O x3, no neuro deficits noted Skin/Lines: multiple chronic wounds, sacral ulcer, suprapubic and barber catheter in place draining clear urine Labs: Labs reviewed and notable for: - POC glucose: 133-306 - WBC 10.8 (from 11 yesterday) - Hb 9.3 (stable 9-10 during this admission) - Lytes normal - Cr 0.85 downtrending (1.18 yesterday), but BUN increased from 22 to 27 - Mag 0.72 Microbiology: BCx: NGTD UCx: Not done Pertinent radiology/diagnostic studies: NA Assessment: Hope Yee is a 73 y.o. female with PMH of HTN, atrial fibrillation on rivaroxaban, poorly-controlled T2DM, CKD, chronic indwelling suprapubic catheter, and prior TIA presenting in transfer from [facility] with bradycardia, hypotension, and hyperglycemia. Plan: #Bradycardia - resolved #Atrial fibrillation # Elevated BNP #Hx of ?tachybrady syndrome HR in the 30s-40s at [facility], meds were held and temporary pacing wire was placed. HR normalized to 90s-100s after hyperglycemia tx. Temp pacing wire removed 11/04. Bradycardia was likely the result of accumulation of beta blockade and calcium channel blockade in the setting of a prerenal MELVA. Slowly uptrating home medications (home dose of metoprolol succinate 100mg BID and diltiazem 300mg QD). Anticoagulated on home dose of rivaroxaban. EP consulted, not recommending pacemaker placement at this time. - Telemetry - Holding home diltiazem - 50mg metoprolol tartrate Q6H, titrate as needed - Rivaroxaban 20 mg nightly #MELVA - improving, likely prerenal #Hyperkalemia #Pseudohyponatremia Her blood sugars have been very elevated at home, seemingly in the 400s-600s quite frequently, which would have led to an osmotic diuresis. All of this would have contributed to a prerenal MELVA and associated hyperkalemia. Cr 1.43 on admission, now improved to 0.91. Seems most likely that her hyponatremia was pseudohyponatremia in setting of hyperglycemia. Discontinued daily lokelma on 11/07 due tonormalizing potassium. On 11/09, increasing BUN and O>I, although normal creatinine. On 11/10, increasing creatinine >0.3 over 48 hours, meeting the definition for MELVA, coupled with decreased UOPand bladder scan showing 905mL although interpretation difficult in the context of morbid obesity. CT showed distended bladder with SPT in correct place. Urology consulted, recommended bladder decompression with barber and replaced SPT on 11/11. - Urology consulted, appreciate recs - Daily BMP - D/c barber, Monitor for retention - Holding off on additional IV fluids given pulmonary vascular congestion and concern for obstruction #Hyperglycemia #Probable HHS #Poorly-controlled T2DM Glucose in the 500s-700s at presentation, more likely HHS than DKA due to normal AG and no ketones.Last A1C 13.1. Insulin gtt started then stopped afternoon of 11/04, restarted in evening then stopped on 11/05 morning. This episode seems to have been precipitated by both a course of diarrhea due to a new medication along with missing multiple doses of her medications per week. - Diabetes management following; appreciate the assistance - Holding home Trulicity, Jardiance, and metformin - 1:6 mealtime and snack insulin, added snack insulin on 11/08. - Sensitive SSI (lispro 1:20>140) - 40 units of basal insulin daily based on diabetes team recs (30u at home) - Daily BMP, mag, phos #UTI Patient had slight WBC on admission and soft BPs. Unclear whether she was having symptoms, but she did endorse possible fevers. Urinalysis likely shows contamination over infection, but patient is athigh infection risk with indwelling catheter. Completed 5-day course of ceftriaxone 2g daily 11/04-11/08. Changed suprapubic catheter 11/05, again on 11/11. #Wounds - Followed peripherally by wound care #Vitamin B12 - Started B12 oral supplementation on 11/09 # Housekeeping Diet: Carb-controlled full diet Family Update: NA DVT: Xarelto Code Status: Do NOT Attempt CPR - Inpatient PCP: KATHLEEN Retana at [phone] Angelika Woody Pager # [phone] * Zoe Cleveland, PSYCHOLOGICAL OPERATIONS SPECIALIST - 11/12/2023 7:14 AM EDT Follow Up Diabetes Consult Patient Interview Spent time today reviewing patient's glucose levels, insulin use and chart notes. Reviewed recommendations with patient . Objective Temp: [36.6 ??C (97.9 ??F)-36.9 ??C (98.4 ??F)] Heart Rate: [91] Resp: -- BP: (109-126)/(60-78) SpO2: [95 %-99 %] Heart Rate from SpO2: [81 bpm-97 bpm] Current Regimen from previous note 1. Glargine 30 units 2.Lispro 1unit: 6 gm carb ratio for each snack, changed to 1:10 for meal 3.Lispro 1:20>140 Recent Glucose Levels Recent Labs 11/12/23 0407 11/12/23 0052 11/11/23 2141 11/11/23 2011 11/11/23 1828 11/11/23 1618 11/11/23 1420 11/11/23 1151 11/11/23 0817 11/11/23 0300 11/11/23 0013 11/10/23 1923 POCGLU 108 95 162 263* 245* 295* 306* 268* 133 258* 195 278* ASSESSMENT Patient is a 73 y.o. years old female with PMH significant for DM (Last A1C of 13.1%) who was admitted on 11/05/2023 for DKA. Diabetes uncontrolled and currently complicated by unknown insulin requirements. Currently with variability of blood glucose levels while hospitalized requiring adjustment of insulin regimen and DM medications. Pt used 100 units. Increased glargine to 40 and carb ratio back to 1:6 Glucose still elevated, recommend changing carb ratio to 1:5 and glargine to 55 untis tomorrow morning. PLAN 1. Glargine 55 units in the morning (starting tomorrow) 2.Lispro 1unit: 5 gm carb ratio for each meal and snack 3.Lispro 1:10>140 Zoe Cleveland APRN [facility] End[facility]ology Diabetes Management Pager [phone] 35 minute visit was spent evaluating diabetes and treatment plan, reviewing all glucose and insulindata as well as relevant laboratory results , and coordination of care on the inpatient unit including nursing and primary team. * Francis Roberts MD - 11/11/2023 4:38 PM EDT Hospital Medicine Attending Daily Progress Note Admit Date: 11/05/2023 Hospital Day 6 days Active Hospital Problems Diagnosis DKA (diabetic ketoacidosis) Permanent atrial fibrillation Resolved Hospital Problems No resolved problems to display. 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 2 diabetes mellitus, with fat layer exposed Seronegative rheumatoid arthritis Heart murmur Gastroesophageal reflux Pseudophakia, both eyes Diabetic peripheral neuropathy Hypertension, essential, benign Hyperlipidemia SVT (supraventricular tachycardia) Gait instability Seronegative arthritis Osteoarthrosis, unspecified whether generalized or localized, pelvic region and thigh Osteoarthrosis, unspecified whether generalized or localized, lower leg Osteoarthrosis, unspecified whether generalized or localized, ankle and foot Nevus History of malignant melanoma History of basal cell carcinoma Personal history of malignant melanoma Rosacea Basal cell carcinoma of back Malignant melanoma Inpatient Medications: Scheduled insulin lispro 0-15 Units Subcutaneous TID WC insulin glargine (Lantus;Semglee) (100 unit/mL) subcutaneous injection 30 Units Subcutaneous Daily cyanocobalamin (Vitamin B-12) 1,000 mcg Oral Daily metoprolol succinate XL 200 mg Oral Daily insulin lispro 1-6 Units Subcutaneous Q4H DANNI sodium chloride 0.9 % (flush) 5 mL Intravenous BID rivaroxaban 20 mg Oral Daily with dinner Continuous infusions: PRN: insulin lispro, glucose 40% oral geL OR dextrose OR glucagon, sodium chloride 0.9 % (flush), lidocaine Interval History NAEO No complaints Physical Exam Vitals Range last 24 hrs Temperature Temp: [36.6 ??C (97.9 ??F)-36.9 ??C (98.4 ??F)] Heart Rate Heart Rate: [91-111] Blood Pressure BP: (109-142)/(60-105) Respiratory Rate Resp: -- SpO2 SpO2: [97 %-99 %] Intake/Output Summary (Last 24 hours) at 11/11/20232037 Last data filed at 11/11/20231999 Gross per 24 hour Intake 210 ml Output 1675 ml Net -1465 ml Patient Vitals for the past 168 hrs: Weight 11/05/23 0305 87.8 kg (193 lb 9 oz) Body mass index is 30.77 kg/m??. Physical Exam General: NAD, alert and oriented HEENT: EOMI, MMM CV: radial pulses 2+ bl, IRR Lungs: norm WOB Abd: NTND Ext: no edema LABS: Last 3 wbc, hgb, hct plt Recent Labs 11/11/23 0513 11/10/23 0000 11/09/23 0000 WBC 11.0* 9.3 9.7* HGB 10.0* 9.4* 9.7* HCT 33.4* 31.1* 32.0* PLATELET 431* 401* 391* Last 3 Lytes Recent Labs 11/11/23 0020 11/10/23 0000 11/09/23 0000 NA 133* 134* 135 K 4.9 4.6 4.5 CL 99 100 102 CO2 24 BUN 22* 21* 17 CREATININE 1.18 0.95 0.86 Last 3 LFTs Recent Labs 11/09/23 0000 11/05/23 0335 AST 20 268* ALT 47* 174* ALKPHOS 76 119* BILITOT <0.2* 0.3 BILIDIR <0.1 0.2 FSBG Trend Recent Labs 11/11/23201011/11/23 1828 11/11/23 1618 11/11/23 1420 11/11/23 1151 11/11/23 0817 11/11/23 0300 11/11/23 0013 11/10/23 1923 11/10/23 1501 POCGLU 263* 245* 295* 306* 268* 133 258* 195 278* 264* MICRO: No results for input(s): URINECULTURE in the last 720 hours. No results for input(s): GRAMSTAIN, BFCX, LOWERRESPCX, TISSUECX in the last 720 hours. Recent Labs 11/05/23 0400 11/05/23 0415 BLOODCX No growth at 5 days. No growth at 5 days. ECG: Recent Labs 11/05/23 0310 DIAGLINE Atrial fibrillation Low voltage QRS Prolonged QTc Abnormal ECG When compared with ECG of 11-JAN-2018 11:06, Nonspecific T wave abnormality no longer evident in Inferior leads Confirmed by fellow MD Johnson Augustin ([id number]) on 11/05/2023 2:07:55 PM Confirmed by MD Funk Danette ([id number]) on 11/06/2023 5:30:09 PM QTCCALC 492 VASCULAR: Recent Labs 11/09/23 1643 VBTEXTRPT Department: Vascular Surgery Lab Patient: [id number] (HOPE YEE) CPT: 85578 Referring Physician: JOAQUIM GEORGES Phone: Indications: Chronic LE wound ? perfusion Diabetes mellitus: Yes Findings: Right Pressure (mm Hg) Waveform TBI Brachial Artery 134 Dorsalis Pedis (Ankle) Artery >254 Triphasic Posterior Tibial (Ankle) Artery >254 Triphasic Great Toe 113 0.84 Left Pressure (mm Hg) Waveform TBI Brachial Artery IV Dorsalis Pedis (Ankle) Artery >254 Triphasic Posterior Tibial (Ankle) Artery >254 Triphasic Great Toe 111 0.83 Interpretation: RIGHT: No significant lower extremity arterial [...] ABIs with change from previous value: Date RIGHT DP RIGHT PT RT GR TOE RT Sec TOE 1.21 1.29 0.75 ---- Current ---- ---- 0.84(+.09) ---- Date LEFT DP LEFT PT LT GR TOE LT Sec TOE 1.21 1.22 0.76 ---- Current ---- ---- 0.83(+.07) ---- End of Report IMAGING: Results for orders placed or performed during the hospital encounter of 11/05/23 XR Chest One View (Exam End: 11/05/2023 3:58 AM) Result Value WORKSTATION ID [id number] Impression Right IJ central venous catheter with tip projecting over the right atrium. I have personally reviewed the image(s) and the resident's interpretation and agree with the findings, Emeka Wolfe MD at 11/05/2023 4:37 AM Thank you for letting us participate in the care of this patient. If you are a health care provider and have any questions regarding this report, please contact the number below. For patients who have questions please contact the health adult day care worker that requested your imaging first. Abdomen & Pelvis wo Contrast (Exam End: 11/11/2023 12:20 PM) Result Value WORKSTATION ID [id number] Impression Appropriate position of the suprapubic catheter, however, persistent moderate bladder distention. Possible catheter obstruction/clog; correlate with ability to flush catheter. The overall appearance is similar to 2021 when the catheter was in appropriate position and the bladder was distended. Thank you for letting us participate in the care of this patient. If you are a health care provider and have any questions regarding this report, please contact the number below. For patients who have questions please contact the health adult day care worker that requested your imaging first. Electronically signed by: SUNSHINE ALCOCER MD, [facility] ([phone]), at 11/11/2023 1:06 PM TTE 11/05/23 Interpretation Summary Normal left ventricular size with hyperdynamic systolic function. Ejection fraction is visually 70%. There are no regional wall motion abnormalities. The right ventricle is mildly dilated with normal systolic function. There is no significant valvular disease. Compared to prior echo from 01/08/18, there are no major changes. ASSESSMENT and PLAN: Hope Yee is a 73 y.o. female with PMH of HTN, atrial fibrillation on rivaroxaban, poorly-controlled T2DM, CKD, chronic indwelling suprapubic catheter, and prior TIA presenting in transfer from [facility] with bradycardia, hypotension, and hyperglycemia. 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 #Atrial fibrillation - consult EP tray recs, no ppm for now - Temp pacing wire removed 11/04 - Holding home diltiazem - metop tartrate q6h, uptitrating for goal HR < 110 at rest - Rivaroxaban 20 mg nightly #MELVA suspect obstructive 2/2 malfunctioning SPC #Hyperkalemia, improving - hold lokelma - ctm K and Cr - straight cathed for 800 cc urine, barber placed - Urology consult, tray recs, plan to replaced SPC 11/11 #Hyperglycemia #Probable HHS, resolved #Poorly-controlled T2DM Last A1C 13.1 - Diabetes management following; appreciate recs - Holding home Trulicity, Jardiance, and metformin - SSI - MC - glargine #UTI, possibly associated with suprapubic catheter, in place for prior hx recurrent urinary retention - s/p Ceftriaxone 2g daily for 5 days (completed 11/08) # Sacral decub ulcer: - appreciate wound care consult #Housekeeping: - DVT PPx: Home rivaroxaban - Diet: Carb Control diet 60/60/75 CHO counting level 2 - Level of care: Med/ surg - Code Status: DNR but pre-arrest intubation is permitted Team Pager( Coverage 12/01): #[phone] PCP: KATHLEEN Retana [phone] Attestation: IPI Certification I certify that I am a D-H credentialed attending provider with admitting privileges and that the patient meets or has met medical necessity to require an inpatient IPI level of care meeting a minimumof two midnights or is on the [facility] inpatient only procedure list (status C) due to: arranging supervision for home prior to discharge Francis Roberts MD 11/11/2023 * Laurie Perez, PT - 11/11/2023 2:37 PM EDT Physical Therapy Intervention Note Treatment Number PT: 3 Total duration of encounter: 6 days Patient profile: Hope Yee is a 73 y.o. female with PMH of HTN, atrial fibrillation on rivaroxaban, poorly-controlled T2DM, CKD, chronic indwelling suprapubic catheter, and prior TIA presenting in transfer from [facility] with bradycardia, hypotension, and hyperglycemia. Interval History/Events: -rule out c diff, MELVA, contact precautions due to bed bugs at home, malfunctioning suprapubic catheter. Not yet MR today Social History: Patient lives alone with her bridget Echo. Lives in [facility] in [facility] building with elevator access. Normally uses elevator. Uses cane vs 4WW (when carrying things). Does not drive - uses senior bus for appts, groceries etc. Limited social supports. Enjoys watching TV and going shopping. Managesown medications. Some bowel incontinence/urgency. Has VNA (nursing only) for LE wounds. Dtr caring for Bridget at the moment at her home. Dtr lives 40 miles away, son lives in [place] Precautions/Special Considerations: DNR/limited code, Contact precautions (bed bugs), fall risk, PIV, suprapubic catheter, carb controldiet Mobility and Positioning Recommendations: Pt. to utilize FWW w/ SBA for transfers and ambulation with nursing. Please encourage up to chair for meal times as able. EPM Level 5: Ambulate, Participate in self care Subjective: ???see I could stand at the sink and do dishes or cook just like this Objective: Pt seen for physical therapy treatment today and presented as follows: Pain: Number Location At rest none With activity Discomfort/stretching Lower back with standing therex Vital Signs: At Rest With Activity SpO2 (RA) 99% 95% BP (MAP) 115/69 (83)mmHg HR 90bpm 95bpm Behavior / Mood: alert and cooperative, pleasant, simple Oriented to: person, place, and date Follows commands: multi step and 100% of the time Attention: WFL Safety awareness: WFL RASS: 0 CAM: N/A Vision: had cataracts removed, needs glasses but can't afford Skin: intact but at risk for breakdown, dressings to bilateral LE below knees (reports hx of bilateral Le wound and edema) Musculoskeletal: ROM: WFL full AROM UE and LE Sensation: diminished protective sensation to bilateral feet, at risk for DFU, recommended use of shoes at all times for patient Tone: normal Strength: WFL UE and LE Bed Mobility: Supine to Sit: modified independent to L side EOB, increased time needed, min use of bed rail Sit to Supine: modified independent to flat bed, used feet on EOB/bed rail to assist herself Transfers: Sit to Stand: supervised from EOB with FWW, slow, increased time needed, increased forward trunk flexion. Performed x8 stands total during session Stand to Sit: supervised to EOB with use of UE for eccentric control Bed to Chair: n/A - chair deferred at this time Other: 5 x STS performed Five Times Sit to Stand Test Time to complete 5 stands: 28 seconds Comments: from EOB with use of UE Normal Values: Greater than 13.6 seconds indicates increased disability and morbidity. - (Kyree, 2000) The optimal cutoff time for performing the FTSS test in predicting recurrent falls is 15 seconds. -(Zion et al., 2008) References: Loni Adorno L. Ferrucci, et al. (2000). Lower extremity function and subsequent disability: consistency across studies, predictive models, and value of gait speed alone compared with the short physical performance battery. J Gerontol A Biol Sci Med Sci 55(4): M221-31. Zion S, Bakari D, Yohannes P, Casimiro R, Aravind P, Nora G et al. Five times sit to stand test is a predictor of recurrent falls in healthy community?living subjects aged 65 and older. J Am Geriatr Soc 2008; 56(8):1575?1577 Gait: Distance: 20 feet (limited to in room due to contact precautions) Device Used: FWW Level of Assist: supervised Gait Comments: no overt LOB, slow tiffany and gait speed Stairs: N/A Balance: Sitting Static: good Sitting Dynamic: fair/good - no use of UE at EOB Standing Static: fair with single UE support, SBA Standing Dynamic / Gait: fair with bilateral UE support (leaning on counter) SBA Self Care: Washed hands standing at sink with bilateral elbow support, supervision otherwise indep. Discussed self management of suprapubic catheter during transfers bed mobility gait etc. Therex: (VC and demo for proper technique throughout) x10 each standing: - bilateral hip ABD - bilateral hip ext -bilateral hip flexion -alternating standing marches -heel raises -mini squat with walker support x5 Education: patient educated on role of therapy, safety, therex, use of protective foot wear, use of walker. Ongoing activity, and DC planning (rehab vs home), with fair understanding/demonstration. Patient status, treatment, and mobility recommendations discussed with nursing. Pt left supine in bed, with all needs met, with call puckett in reach, and with bed alarm active following visit. Team Communication: communication with nursing staff pre/post session regarding readiness and response to therapy intervention. Assessment: Hope Yogi ChoiYee was seen today for physical therapy intervention. Pt continues to be pleasant and motivated to participate in therapy interventions. Pt eager to regain independence and progress toward a home DC. Able to perform all mobility tasks today without physical hands-on assistance. Tolerated several standing transfers and standing exercises, with minimal rest breaks. Ambulation distance limited due to new contact precautions.Otherwise, pt has met acute PT goals sufficiently for DC home. Recommend home health PT/OT/RN and social work for DC. Would benefit from at least daily check in from family members/social supports. Would also suggest eventual transition to more assisted type living setting. Will continue to follow up with patient for ongoing PT if remains hospitalized for extended period. Pt will benefit from skilled therapy services throughout hospitalization to promote safety, independence, and provide developmental support/caregiver education. Discharge Recommendations: Based on the current findings, Anticipated Discharge Disposition (PT): home with daily check in, home with home health when medically ready for hospital discharge. *recommend resources/looking into [facility] Discharge recommendation is based on the patient's current physical impairments, prior functional status, potential to return to prior level of function, patient motivation, reported home support, potential for functional gains, current level of endurance, reported home environment and anticipated trajectory of progress and may change based on patient progress during this hospitalization. Consult Recommendations: Social Work - needs resources due to low income and can't afford glasses etc. Lives alone with minimal social supports. Diabetes team - education in management Wound care - for LE Equipment Needs: Anticipated Equipment Needs at Discharge (PT): None (has all DME) Inpatient/Acute Care PT Plan: Therapy Frequency (PT): 1-2 more times for therapy. x Consult service will continue to follow patient. PT signing off. Recommendations above, page if further consultation required. Goals: Goals ongoing as of 11/11/23 unless otherwise noted Goals: To be achieved by 11/21/23: Pt. to demonstrate knowledge of safety limitations and precautions Pt. to demonstrate understanding of appropriate exercises. Pt. to perform supine to/from sitting EOB with modified independence MET 11/10 Pt. to perform sit to/from stand transfers with supervision and LRAD MET 11/10 Pt. to ambulate 150 feet with supervision and least restrictive assistive device Pt. to ambulate up/down 3 step/stairs using single railing and/or cane with SBA (not essential for DC home but should be able to for emergency purposes) Pt to tolerate upright positioning with VSS MET 11/10 Time IN / OUT: 2105-5660 Total Minutes, Physical Therapy: 30 Billing Code: x2 TEF Thank you for this consult. Laurie Perez, PT Pager: [phone] Physical Therapy Inpatient Rehabilitation Department * Zoe Cleveland, PSYCHOLOGICAL OPERATIONS SPECIALIST - 11/11/2023 12:19 PM EDT Follow Up Diabetes Consult Patient Interview Spent time today reviewing patient's glucose levels, insulin use and chart notes. Reviewed recommendations with patient. Objective Temp: [36.6 ??C (97.9 ??F)-36.9 ??C (98.4 ??F)] Heart Rate: [91-111] Resp: -- BP: (109-142)/(60-105) SpO2: [97 %-98 %] Heart Rate from SpO2: [90 bpm-116 bpm] Current Regimen from previous note 1. Glargine 26 untis 2.Lispro 1unit: 8 gm carb ratio for each meal and snack 3.Lispro 1:20>140 Recent Glucose Levels Recent Labs 11/11/23 1151 11/11/23 0817 11/11/23 0300 11/11/23 0013 11/10/23 1923 11/10/23 1501 11/10/23 1106 11/10/23 0733 11/10/23 0408 11/10/23 0018 11/09/23 1936 11/09/23 1653 POCGLU 268* 133 258* 195 278* 264* 256* 126 201* 147 264* 213* ASSESSMENT Patient is a 73 y.o. years old female with PMH significant for DM (Last A1C of 13.1%) who was admitted on 11/05/2023 for DKA. Diabetes uncontrolled and currently complicated by unknown insulin requirements. Currently with variability of blood glucose levels while hospitalized requiring adjustment of insulin regimen and DM medications. Due to elevated base line, increased glargine to 30 units and changed carb ratio to 1:6 PLAN 1. Glargine 30 units 2.Lispro 1unit: 6 gm carb ratio for each meal and snack 3.Lispro 1:20>140 Zoe Cleveland APRN [facility] [facility] Diabetes Management Pager [phone] 35 minute visit was spent evaluating diabetes and treatment plan, reviewing all glucose and insulindata as well as relevant laboratory results , and coordination of care on the inpatient unit including nursing and primary team. * Angelika Woody - 11/11/2023 11:04 AM EDT Inpatient Medicine Progress Note Interval Events/Subjective: Decreasing UOP, with no urine output from 11pm to 3am through catheter, although patient was able to void a little bit via urethra. Urine has remained clear although with some sediments in draining tube. Feeling well this morning. No chest pain, sob, abdominal pain, flank pain, dysuria. Physical Exam: Last value Range last 24 hrs Temperature Temp: 36.9 ??C (98.4 ??F) Temp: [36.6 ??C (97.9 ??F)-36.9 ??C (98.4 ??F)] Heart Rate Heart Rate: 91 Heart Rate: [91-111] Blood Pressure BP: 109/60 BP: (106-142)/(60-105) Respiratory Rate Resp: 13 Resp: -- SpO2 SpO2: 97 % SpO2: [97 %-99 %] - nursing notes and vitals reviewed Constitutional: NAD Neck: No JVD Respiratory: no wheezing or crackles CV: irregular, no murmurs GI: soft, NT, ND. Ext: irregular radial pulses 2+ Lymph: no peripheral edema, wearing compression bandages Musculoskeletal: no gross deformities noted Neuro: A+O x3, no neuro deficits noted Skin/Lines: multiple chronic wounds, suprapubic catheter in place draining clear urine Labs: Labs reviewed and notable for: - POC glucose: 200-278 - WBC 11 (from 9.3 - Hb 10 (from 9.4) - Na 133, other lytes normal. - Cr 1.18 (0.95 yesterday), BUN 22 - Mag 0.71 Microbiology: BCx: NGTD UCx: Not done Pertinent radiology/diagnostic studies: NA Assessment: Hope Yee is a 73 y.o. female with PMH of HTN, atrial fibrillation on rivaroxaban, poorly-controlled T2DM, CKD, chronic indwelling suprapubic catheter, and prior TIA presenting in transfer from [facility] with bradycardia, hypotension, and hyperglycemia. Plan: #Bradycardia - resolved #Atrial fibrillation # Elevated BNP #Hx of ?tachybrady syndrome HR in the 30s-40s at [facility], meds were held and temporary pacing wire was placed. HR normalized to 90s-100s after hyperglycemia tx. Temp pacing wire removed 11/04. Bradycardia was likely the result of accumulation of beta blockade and calcium channel blockade in the setting of a prerenal MELVA. Slowly uptrating home medications (home dose of metoprolol succinate 100mg BID and diltiazem 180mg QD). Anticoagulated on home dose of rivaroxaban. EP consulted, not recommending pacemaker placement at this time. - Telemetry - Holding home diltiazem - 50mg metoprolol tartrate Q6H, titrate as needed - Rivaroxaban 20 mg nightly #MELVA - improving, likely prerenal #Hyperkalemia #Pseudohyponatremia Her blood sugars have been very elevated at home, seemingly in the 400s-600s quite frequently, which would have led to an osmotic diuresis. All of this would have contributed to a prerenal MELVA and associated hyperkalemia. Cr 1.43 on admission, now improved to 0.91. Seems most likely that her hyponatremia was pseudohyponatremia in setting of hyperglycemia. Discontinued daily lokelma on 11/07 due tonormalizing potassium. On 11/09, increasing BUN and O>I, although normal creatinine. On 11/10, increasing creatinine >0.3 over 48 hours, meeting the definition for MELVA, coupled with decreased UOP. Bladder scan showing 905mL although interpretation difficult in the context of morbid obesity. Concern for obstruction. - Daily BMP - Urine lytes - Non-contrast CT scan of abdomen/ pelvis - Holding off on additional IV fluids given pulmonary vascular congestion and concern for obstruction #Hyperglycemia #Probable HHS #Poorly-controlled T2DM Glucose in the 500s-700s at presentation, more likely HHS than DKA due to normal AG and no ketones.Last A1C 13.1. Insulin gtt started then stopped afternoon of 11/04, restarted in evening then stopped on 11/05 morning. This episode seems to have been precipitated by both a course of diarrhea due to a new medication along with missing multiple doses of her medications per week. - Diabetes management following; appreciate the assistance - Holding home Trulicity, Jardiance, and metformin - 1:8 mealtime and snack insulin, added snack insulin on 11/08. - Sensitive SSI (lispro 1:20>140) - 26 units of basal insulin daily based on diabetes team recs (home dose 30u of lantus nightly) - Daily BMP, mag, phos #UTI Patient had slight WBC on admission and soft BPs. Unclear whether she was having symptoms, but she did endorse possible fevers. Urinalysis likely shows contamination over infection, but patient is athigh infection risk with indwelling catheter. Completed 5-day course of ceftriaxone 2g daily 11/04-11/08. Changed suprapubic catheter 11/05. #Wounds - Followed peripherally by wound care #Vitamin B12 - Started B12 oral supplementation on 11/09 # Housekeeping Diet: Carb-controlled full diet Family Update: NA DVT: Xarelto Code Status: Do NOT Attempt CPR - Inpatient PCP: KATHLEEN Retana at [phone] Angelika Woody Pager # [phone] * Ita Qiu - 11/11/2023 9:31 AM EDT 11/11/23921 Director Career Services Care Medicaid Referral Date 11/11/23 Referral By Jania Stout Received a referral to assist patient and their family in applying for [facility] Medicaid. * Francis Roberts MD - 11/10/2023 4:20 PM EDT Hospital Medicine Attending Daily Progress Note Admit Date: 11/05/2023 Hospital Day 5 days Active Hospital Problems Diagnosis DKA (diabetic ketoacidosis) Permanent atrial fibrillation Resolved Hospital Problems No resolved problems to display. 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 2 diabetes mellitus, with fat layer exposed Seronegative rheumatoid arthritis Heart murmur Gastroesophageal reflux Pseudophakia, both eyes Diabetic peripheral neuropathy Hypertension, essential, benign Hyperlipidemia SVT (supraventricular tachycardia) Gait instability Seronegative arthritis Osteoarthrosis, unspecified whether generalized or localized, pelvic region and thigh Osteoarthrosis, unspecified whether generalized or localized, lower leg Osteoarthrosis, unspecified whether generalized or localized, ankle and foot Nevus History of malignant melanoma History of basal cell carcinoma Personal history of malignant melanoma Rosacea Basal cell carcinoma of back Malignant melanoma Inpatient Medications: Scheduled insulin glargine (Lantus;Semglee) (100 unit/mL) subcutaneous injection 26 Units Subcutaneous Daily cyanocobalamin (Vitamin B-12) 1,000 mcg Oral Daily [START ON 11/11/2023] metoprolol succinate XL 200 mg Oral Daily metoproloL tartrate 50 mg Oral Q6H DANNI insulin lispro 0-10 Units Subcutaneous TID WC insulin lispro 1-6 Units Subcutaneous Q4H DANNI sodium chloride 0.9 % (flush) 5 mL Intravenous BID rivaroxaban 20 mg Oral Daily with dinner Continuous infusions: PRN: insulin lispro, glucose 40% oral geL OR dextrose OR glucagon, sodium chloride 0.9 % (flush), lidocaine Interval History NAEO No complaints Physical Exam Vitals Range last 24 hrs Temperature Temp: [36.6 ??C (97.9 ??F)-36.9 ??C (98.4 ??F)] Heart Rate Heart Rate: -- Blood Pressure BP: (106-145)/(71-89) Respiratory Rate Resp: [13] SpO2 SpO2: [98 %-100 %] Intake/Output Summary (Last 24 hours) at 11/10/20232019 Last data filed at 11/10/2023 1300 Gross per 24 hour Intake 266 ml Output 1400 ml Net -1134 ml Patient Vitals for the past 168 hrs: Weight 11/05/23 0305 87.8 kg (193 lb 9 oz) Body mass index is 30.77 kg/m??. Physical Exam General: NAD, alert and oriented HEENT: EOMI, MMM CV: radial pulses 2+ bl, IRR Lungs: norm WOB Abd: NTND Ext: no edema LABS: Last 3 wbc, hgb, hct plt Recent Labs 11/10/23 0000 11/09/23 0000 11/08/23 0018 WBC 9.3 9.7* 10.7* HGB 9.4* 9.7* 10.1* HCT 31.1* 32.0* 33.6* PLATELET 401* 391* 389* Last 3 Lytes Recent Labs 11/10/23 0000 11/09/23 0000 11/08/23 0018 NA 134* 135 137 K 4.6 4.5 4.3 CL 100 102 103 CO2 24 24 25 BUN 21* 17 11 CREATININE 0.95 0.86 0.76 Last 3 LFTs Recent Labs 11/09/23 0000 11/05/23 0335 AST 20 268* ALT 47* 174* ALKPHOS 76 119* BILITOT <0.2* 0.3 BILIDIR <0.1 0.2 FSBG Trend Recent Labs 11/10/23 1923 11/10/23 1501 11/10/23 1106 11/10/23 0733 11/10/23 0408 11/10/23 0018 11/09/23 1936 11/09/23 1653 11/09/23 1153 11/09/23 0741 POCGLU 278* 264* 256* 126 201* 147 264* 213* 193 108 MICRO: No results for input(s): URINECULTURE in the last 720 hours. No results for input(s): GRAMSTAIN, BFCX, LOWERRESPCX, TISSUECX in the last 720 hours. Recent Labs 11/05/23 0400 11/05/23 0415 BLOODCX No growth at 5 days. No growth at 5 days. ECG: Recent Labs 11/05/23 0310 DIAGLINE Atrial fibrillation Low voltage QRS Prolonged QTc Abnormal ECG When compared with ECG of 11-JAN-2018 11:06, Nonspecific T wave abnormality no longer evident in Inferior leads Confirmed by fellow MD Johnson Augustin ([id number]) on 11/05/2023 2:07:55 PM Confirmed by MD Funk Danette ([id number]) on 11/06/2023 5:30:09 PM QTCCALC 492 VASCULAR: Recent Labs 11/09/23 1643 VBTEXTRPT Department: Vascular Surgery Lab Patient: [id number] (HOPE YEE) CPT: 24670 Referring Physician: JOAQUIM GEORGES Phone: Indications: Chronic LE wound ? perfusion Diabetes mellitus: Yes Findings: Right Pressure (mm Hg) Waveform TBI Brachial Artery 134 Dorsalis Pedis (Ankle) Artery >254 Triphasic Posterior Tibial (Ankle) Artery >254 Triphasic [place] Toe 113 0.84 Left Pressure (mm Hg) Waveform TBI Brachial Artery IV Dorsalis Pedis (Ankle) Artery >254 Triphasic Posterior Tibial (Ankle) Artery >254 Triphasic [place]e 111 0.83 Interpretation: RIGHT: No significant lower extremity arterial [...] ABIs with change from previous value: Date RIGHT DP RIGHT PT RT GR TOE RT Sec TOE 1.21 1.29 0.75 ---- Current ---- ---- 0.84(+.09) ---- Date LEFT DP LEFT PT LT GR TOE LT Sec TOE 1.21 1.22 0.76 ---- Current ---- ---- 0.83(+.07) ---- End of Report IMAGING: Results for orders placed or performed during the hospital encounter of 11/05/23 XR Chest One View (Exam End: 11/05/2023 3:58 AM) Result Value WORKSTATION ID [id number] Impression Right IJ central venous catheter with tip projecting over the right atrium. I have personally reviewed the image(s) and the resident's interpretation and agree with the findings, Emeka Wolfe MD at 11/05/2023 4:37 AM Thank you for letting us participate in the care of this patient. If you are a health care provider and have any questions regarding this report, please contact the number below. For patients who have questions please contact the health adult day care worker that requested your imaging first. 11/05/23 Interpretation Summary Normal left ventricular size with hyperdynamic systolic function. Ejection fraction is visually 70%. There are no regional wall motion abnormalities. The right ventricle is mildly dilated with normal systolic function. There is no significant valvular disease. Compared to prior echo from 01/08/18, there are no major changes. ASSESSMENT and PLAN: Hope Yee is a 73 y.o. female with PMH of HTN, atrial fibrillation on rivaroxaban, poorly-controlled T2DM, CKD, chronic indwelling suprapubic catheter, and prior TIA presenting in transfer from [facility] with bradycardia, hypotension, and hyperglycemia. 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 #Atrial fibrillation - Telemetry - consult EP tray recs, no ppm for now - Temp pacing wire removed 11/04 - Holding home diltiazem - metop tartrate q6h, uptitrating for goal HR < 110 at rest - Rivaroxaban 20 mg nightly #MELVA suspect prerenal, resolved #Hyperkalemia, improving - hold lokelma - ctm K and Cr #Hyperglycemia #Probable HHS, resolved #Poorly-controlled T2DM Last A1C 13.1 - Diabetes management following; appreciate recs - Holding home Trulicity, Jardiance, and metformin - SSI - MC - glargine #UTI, possibly associated with suprapubic catheter, in place for prior hx recurrent urinary retention - s/p Ceftriaxone 2g daily for 5 days (completed 11/08) # Sacral decub ulcer: - appreciate wound care consult #Housekeeping: - DVT PPx: Home rivaroxaban - Diet: Carb Control diet 60/60/75 CHO counting level 2 - Level of care: Med/ surg - Code Status: DNR but pre-arrest intubation is permitted Team Pager( Coverage 12/01): #[phone] PCP: KATHLEEN Retana [phone] Attestation: IPI Certification I certify that I am a D-H credentialed attending provider with admitting privileges and that the patient meets or has met medical necessity to require an inpatient IPI level of care meeting a minimumof two midnights or is on the [facility] inpatient only procedure list (status C) due to: arranging supervision for home prior to discharge Francis Roberts MD 11/10/2023 * Rebel Marrero, OT - 11/10/2023 10:47 AM EDT Occupational Therapy Treatment Note Treatment Number OT: 2 Patient Dx:Hope Yee is a 73 y.o. female with PMH of HTN, atrial fibrillation on rivaroxaban, poorly-controlled T2DM, CKD, chronic indwelling suprapubic catheter, and prior TIA presenting in transfer from [facility] with bradycardia, hypotension, and hyperglycemia. Past Medical History Past Medical History: Diagnosis Date Atrial fibrillation Diabetes mellitus GERD (gastroesophageal reflux disease) Hypertension Melanoma in situ s/p removal Rheumatoid arthritis SVT (supraventricular tachycardia) Past Surgical History Past Surgical History: Procedure Laterality Date SECTION JOINT REPLACEMENT Social History: Patient lives alone in [place], [place] with her bridgetAggie Home Setup: apt building w/ elevator access. She has a tub shower with grab bars, no seat DME: cane, 4WW Baseline ADL/Mobility: Pt was independent w/ ADL's and IADL's, though she doesn't drive. She manages her medications, though does admit to having some difficulty at times related to her vision. She receives driving services 2x/month. She enjoys watching TV and going shopping. She has been receiving[facility]NA for her LE wounds Precautions/Special Considerations: at risk to fall, DNR (code limitations), suprapubic catheter (chronic), carb control diet S: Much better today.' O: Patient seen for skilled OT treatment, and demonstrated the following: Self-care: Pt up in recliner upon arrival, on room air. Pt still with suprapubic catheter to gravity bag. Pt was able to stand from chair with CG A to walker, transition slow. Pt was able to ambulate to the sink and back using walker with CG A/stand by assistance and cues tostay close to the walker. Pt was able to stand at sink to rinse her mouth, wash her face, and comb her hair with prompts, andstand by assistance. Pt seeking to sit vs. Stand for bathing 2' fatigue. Pt usually stands to shower at home and states a shower seat won't fit in the shower. Pt requiring min A 2' difficulties reaching her back, and verbal prompts for sequencing to completeCHG bath seated on commode at the sink. Pt required CG A and cues for technique with completing jocelyn-care in stance, as again wiped from from back to front. Pt left in recliner at end of session, alarmed. Cognition: Behavior / Mood: alert and cooperative Alert and oriented to: person, place, and situation Follows commands: 1 step and requires repetition with multi-step Attention: WFL Safety awareness: decreased insight into deficits Vision:limited as noted on evaluation, unable to read mouthwash container. Asking therapist what itwas before using it. Endurance:Limited standing tolerance Vitals: stable on room air. 96%, HR 100. BP 136/118 upon arrival, and 120/72 when repeated prior togetting up. Pain: denies pain Education: Pt/family/caregiver education ongoing regarding: Role of occupational therapy/rehabilitation, Transfers, Assistive device/technique, ADL, Safety, Functional Mobility, Activity pacing/Energy conservation, Recommendations, and Discharge planning. Staff Communication: Patient status, treatment, and mobility recommendations discussed with nursing/other staff. ASSESSMENT: Pt feeling stronger than yesterday, but still requiring CG A, and modifications at times to complete ADLs that she usually does standing (ie. Bathing) 2' limited standing tolerance. Pt has poor vision and is in need of glasses prescription but can't afford them. Today she struggled withidentifying what the ADL items were on the counter. Pt lives alone with limited social support. At this time, still continue to recommend rehab to maximize her safety and help her train in self-management behaviors unless family can step up and provide necessary assistance. Pt will benefit from ongoing therapeutic interventions to achieve pt's and therapy goals Equipment needs at discharge: walker, front wheeled, shower chair Anticipated Discharge Disposition: swing bed rehabilitation facility (vs. home to [facility] with home health services.) Daily schedule / Staff Recommendations: Encourage participation in ADL's by providing set up A on tray table and physical assist only as needed. EPM Level 5: Ambulate, Participate in self care Occupational Therapy Goals: Goals: To be achieved within 2 weeks, by 11/23/23: Patient will be modified independent for standing grooming tasks at the sink. (Working on) Patient will be modified independent with LB dressing. Patient will be modified independent with toileting. Patient will be modified independent with sponge bath or shower. (Working on) Patient will participate in further health literacy and self-management assessment. Therapy Frequency (OT): 2-3 times/wk Total Minutes, Occupational Therapy: 33 (10:47-11:20 (self care mgmt x2)) Pager: [phone] REBEL MARRERO, YVONNE 11/10/2023 Occupational Therapy Rehabilitation Department * Laurie Perez, PT - 11/10/2023 8:31 AM EDT Physical Therapy Intervention Note Treatment Number PT: 2 Total duration of encounter: 5 days Patient profile: Hope Yee is a 73 y.o. female with PMH of HTN, atrial fibrillation on rivaroxaban, poorly-controlled T2DM, CKD, chronic indwelling suprapubic catheter, and prior TIA presenting in transfer from [facility] with bradycardia, hypotension, and hyperglycemia. Interval History/Events: No significant events Social History: Patient lives alone with her bridget Echo. Lives in [facility] in apt building with elevator access. Normally uses elevator. Uses cane vs 4WW (when carrying things). Does not drive - uses senior bus for appts, groceries etc. Limited social supports. Enjoys watching TV and going shopping. Managesown medications. Some bowel incontinence/urgency. Has [facility] (nursing only) for LE wounds. Dtr caring for Bridget at the moment at her home. Dtr lives 40 miles away, son lives in [place] Precautions/Special Considerations: DNR/limited code, fall risk, PIV, suprapubic catheter, carb control diet Mobility and Positioning Recommendations: Pt. to utilize FWW w/ 1A for transfers and ambulation with nursing. Please encourage up to chair for meal times as able. EPM Level 5: Ambulate, Participate in self care Subjective: ???I have to feel really safe before going home. I take care of myself?? Objective: Pt seen for physical therapy treatment today and presented as follows: Pain: Number Location At rest none With activity none Vital Signs: At Rest With Activity SpO2 (RA) 95% 93% BP (MAP) 139/83 (99)mmHg 136/118 (126)mmHg HR 97bpm 120sbpm Behavior / Mood: alert and cooperative Oriented to: person, place, and date Follows commands: multi step and 100% of the time Attention: WFL Safety awareness: WFL RASS: 0 CAM: N/A Vision: had cataracts removed, needs glasses but can't afford Skin: intact but at risk for breakdown, dressings to bilateral LE below knees (reports hx of bilateral Le wound and edema) Musculoskeletal: ROM: WFL full AROM UE and LE Sensation: diminished protective sensation to bilateral feet, at risk for DFU, recommended use of shoes at all times for patient Tone: normal Strength: WFL UE and LE Bed Mobility: Supine to Sit: supervised to L side EOB, increased time needed, HOB elevated Sit to Supine: N/A - left OOB after PT Transfers: Sit to Stand: CGA from EOB and toilet and recliner with FWW, increased time and effort with flexionof trunk Stand to Sit: CGA to recliner, toilet Bed to Chair: stand step with FWW, CGA Other: commode transfer with CGA and FWW Gait: Distance: 150 feet Device Used: FWW Level of Assist: CGAx1 Gait Comments: no overt LOB, slow tiffany and gait speed. x1 seated rest break Timed Up & Go (TUG) Average of two trials (seconds): 67 seconds Assistive device used: FWW Comments: from recliner chair, use of UE to push up, CGA provided for safety Normal test = < 10 seconds > 13.5 seconds = fall risk References: Maribeth Bishop, Sharda SANDERS, Kaushik Muse. Balance in Elderly Patients:THe Get-up and Go Test. Arch Phys MedRehabil 1986; [phone]. Stairs: N/A Balance: Sitting Static: good Sitting Dynamic: fair -posterior lean and near LOB while attempting to don socks in figure-4 Standing Static: fair with FWW, CGA Standing Dynamic / Gait: fair with FWW, CGA. [place] on two-handed assistive device Self Care: Changed gown with assist, able to perform pericare after commode use with set up and CGA for standing balance Education: patient educated on role of therapy, safety, use of protective foot wear, use of walker. Ongoing activity, and DC planning (rehab vs home), with fair understanding/demonstration. Patient status, treatment, and mobility recommendations discussed with nursing. Pt left in bedside recliner chair, with all needs met, with call puckett in reach, and with chair alarm active following visit. Team Communication: communication with nursing staff pre/post session regarding readiness and response to therapy intervention. Assessment: Hope Calix Yee was seen today for physical therapy intervention. Pt continues to be very pleasant and motivated to participate in therapy interventions. HR much improved today allowingfor further activity. Able to mobilize well needing only CGA/SBA with walker for activity. Pt did score poorly on Timed Up and Go Test, however, indicating an increased risk of falling. Despite this,anticipate she is relatively close to her baseline level of functioning, but would recommend use ofwalker instead of cane on DC home. Overall progressing toward rehab goals and a DC home w/ services/check ins. Recommend eventual transition to more assisted type living setting. Pt will benefit from skilled therapy services throughout hospitalization to promote safety, independence, and provide developmental support/caregiver education. Discharge Recommendations: Based on the current findings, Anticipated Discharge Disposition (PT): home with daily check in, home with home health (phone call check in from family) when medically ready for hospital discharge. *recommend resources/looking into [facility] Discharge recommendation is based on the patient's current physical impairments, prior functional status, potential to return to prior level of function, patient motivation, reported home support, potential for functional gains, current level of endurance, reported home environment and anticipated trajectory of progress and may change based on patient progress during this hospitalization. Consult Recommendations: Social Work - needs resources due to low income and can't afford glasses etc. Lives alone with minimal social supports. Diabetes team - education in management Wound care - for LE Equipment Needs: Anticipated Equipment Needs at Discharge (PT): None (plans to use 4WW) Inpatient/Acute Care PT Plan: Therapy Frequency (PT): 1-3 more times for therapy. x Consult service will continue to follow patient. PT signing off. Recommendations above, page if further consultation required. Goals: Goals ongoing as of 11/10/23 unless otherwise noted Goals: To be achieved by 11/21/23: Pt. to demonstrate knowledge of safety limitations and precautions Pt. to demonstrate understanding of appropriate exercises. Pt. to perform supine to/from sitting EOB with modified independence Pt. to perform sit to/from stand transfers with supervision and LRAD Pt. to ambulate 150 feet with supervision and least restrictive assistive device Pt. to ambulate up/down 3 step/stairs using single railing and/or cane with SBA (not essential for DC home but should be able to for emergency purposes) Pt to tolerate upright positioning with VSS Time IN / OUT: 6543-3571 Total Minutes, Physical Therapy: 35 Billing Code: x2 TEF Thank you for this consult. Laurie Perez, PT Pager: [phone] Physical Therapy Inpatient Rehabilitation Department * Angelika Woody - 11/10/2023 7:53 AM EDT Inpatient Medicine Progress Note Interval Events/Subjective: Mag repleted overnight. Feeling well this morning. No chest pain, sob, abdominal pain. No catheter leaking, urine has been clear. Physical Exam: Last value Range last 24 hrs Temperature Temp: 36.8 ??C (98.3 ??F) Temp: [36.6 ??C (97.9 ??F)-37.1 ??C (98.8 ??F)] Heart Rate Heart Rate: 97 Heart Rate: [96-106] Blood Pressure BP: 139/83 BP: (123-145)/(67-89) Respiratory Rate Resp: 13 Resp: [11-20] SpO2 SpO2: 100 % SpO2: [96 %-100 %] - nursing notes and vitals reviewed Constitutional: NAD Neck: No JVD Respiratory: no wheezing or crackles CV: irregular, no murmurs GI: soft, NT, ND. Ext: irregular radial pulses 2+ Lymph: no peripheral edema, wearing compression bandages Musculoskeletal: no gross deformities noted Neuro: A+O x3, no neuro deficits noted Skin/Lines: multiple chronic wounds, suprapubic catheter in place draining clear urine Labs: Labs reviewed and notable for: - POC glucose: 102-236 overnight, 412 around 2200 - WBC 9.3 - Hb 9.4 - K normalizing 4.6 - Mag 0.63 (repleted) - Na normal 134 - Cr normal at 0.95 Microbiology: BCx: NGTD UCx: Not done Pertinent radiology/diagnostic studies: NA Assessment: Hope Yee is a 73 y.o. female with PMH of HTN, atrial fibrillation on rivaroxaban, poorly-controlled T2DM, CKD, chronic indwelling suprapubic catheter, and prior TIA presenting in transfer from [facility] with bradycardia, hypotension, and hyperglycemia. Plan: #Bradycardia - resolved #Atrial fibrillation # Elevated BNP #Hx of ?tachybrady syndrome HR in the 30s-40s at [facility], meds were held and temporary pacing wire was placed. HR normalized to 90s-100s after hyperglycemia tx. Temp pacing wire removed 11/04. Bradycardia was likely the result of accumulation of beta blockade and calcium channel blockade in the setting of a prerenal MELVA. Slowly uptrating home medications (home dose of metoprolol succinate 100mg BID and diltiazem 180mg QD). Anticoagulated on home dose of rivaroxaban. EP consulted, not recommending pacemaker placement at this time. - Telemetry - Holding home diltiazem - 50mg metoprolol tartrate Q6H, titrate as needed - Rivaroxaban 20 mg nightly #MELVA - improving, likely prerenal #Hyperkalemia #Pseudohyponatremia Her blood sugars have been very elevated at home, seemingly in the 400s-600s quite frequently, which would have led to an osmotic diuresis. All of this would have contributed to a prerenal MELVA and associated hyperkalemia. Cr 1.43 on admission, now improved to 0.91. Seems most likely that her hyponatremia was pseudohyponatremia in setting of hyperglycemia. Discontinued daily lokelma on 11/07 due tonormalizing potassium. On 11/09, increasing BUN and O>I, although normal creatinine. - Daily BMP - Urine lytes - Holding off on additional IV fluids given pulmonary vascular congestion #Hyperglycemia #Probable HHS #Poorly-controlled T2DM Glucose in the 500s-700s at presentation, more likely HHS than DKA due to normal AG and no ketones.Last A1C 13.1. Insulin gtt started then stopped afternoon of 11/04, restarted in evening then stopped on 11/05 morning. This episode seems to have been precipitated by both a course of diarrhea due to a new medication along with missing multiple doses of her medications per week. - Diabetes management following; appreciate the assistance - Holding home Trulicity, Jardiance, and metformin - 1:8 mealtime and snack insulin, added snack insulin on 11/08. - Sensitive SSI (lispro 1:20>140) - 23 units of basal insulin daily based on diabetes team recs (home dose 30u of lantus nightly) - Daily BMP, mag, phos #UTI Patient had slight WBC on admission and soft BPs. Unclear whether she was having symptoms, but she did endorse possible fevers. Urinalysis likely shows contamination over infection, but patient is athigh infection risk with indwelling catheter. Completed 5-day course of ceftriaxone 2g daily 11/04-11/08. - Changed suprapubic catheter 11/05 #Wounds - Followed peripherally by wound care #Vitamin B12 - Start B12 oral supplementation # Housekeeping Diet: Carb-controlled full diet Family Update: NA DVT: Xarelto Code Status: Do NOT Attempt CPR - Inpatient PCP: KATHLEEN Retana at [phone] Angelika Woody Pager # [phone] * Zoe Cleveland, PSYCHOLOGICAL OPERATIONS SPECIALIST - 11/10/2023 6:42 AM EDT Follow Up Diabetes Consult Patient Interview Spent time today reviewing patient's glucose levels, insulin use and chart notes. Reviewed recommendations with patient . Objective Temp: [36.4 ??C (97.5 ??F)-37.1 ??C (98.8 ??F)] Heart Rate: [96-106] Resp: [11-20] BP: (123-145)/(67-91) SpO2: [96 %-100 %] Heart Rate from SpO2: [92 bpm-107 bpm] Current Regimen from previous note 1. Glargine 23 untis 2.Lispro 1unit: 8 gm carb ratio for each meal and snack 3.Lispro 1:20>140 Recent Glucose Levels Recent Labs 11/10/23 0408 11/10/23 0018 11/09/23 1936 11/09/23 1653 11/09/23 1153 11/09/23 0741 11/09/23 0407 11/08/23 2206 11/08/23 1606 11/08/23 1212 11/08/23 0813 11/08/23 0351 POCGLU 201* 147 264* 213* 193 108 188 412* 236* 221* 126 108 ASSESSMENT Patient is a 73 y.o. years old female with PMH significant for DM (Last A1C of 13.1%) who was admitted on 11/05/2023 for DKA. Diabetes uncontrolled and currently complicated by unknown insulin requirements. Currently with variability of blood glucose levels while hospitalized requiring adjustment of insulin regimen and DM medications. Patient used 54 units and 56 units of insulin respectively in last couple of days. Recommend increasing glargine to 26 untis. PLAN 1. Glargine 26 untis 2.Lispro 1unit: 8 gm carb ratio for each meal and snack 3.Lispro 1:20>140 Zoe Cleveland APRN [facility] Diabetes Management Pager [phone] Recommend discontinuing Farxiga or any SGLT2 due to DKA. Diabetes Discharge Instructions Please test blood sugars 4 times daily prior to breakfast, lunch, dinner, and bedtime. Please test blood sugars with any symptoms. Please work on eating a diet that is lower in fat and carbohydrates. Please work on staying active.The goal is thirty minutes daily, as tolerated. Instructions for Lantus Insulin (LONG ACTING) Please inject Lantus 26 units every morning. If your fasting blood sugars are above 150mg/dl two days in a row, please increase your Lantus by 2units. If your fasting blood sugars are below 90mg/dl two days in a row, please decrease your Lantus by 2 units. This dose now becomes your new daily dose unless it need to be further adjusted based on future glucose readings. Instructions for Mealtime Humalog Insulin Please inject a base dose of Humalog 6 units with meals. If you are eating a larger meal, please increase your Humalog to 8 units. If you are eating a smaller meal, please decrease your Humalog to 4 units. If you are not eating any carbohydrates or skipping a meal, please skip base dose of Humalog. If your blood sugar before a meal is elevated, please add the following correction of 1 unit for every 20 points above a blood sugar of 140mg/dl . Please follow the scale below. This is to be added to you base dose of Humalog. Blood Sugar HUMALOG DOSE 140-160 ADD 1 unit 161-180 ADD 2 units 181-200 ADD 3 units 201-220 ADD 4 units 221-240 ADD 5 units 241- 260 ADD 6 units 261-280 ADD 7 units 281-300 ADD 8 units >300 or HI ADD 9 units and call Doctor Please remember to take your Humalog at the start of your meal. 1. If you forget to take it at the start of your meal and it has been less than an hour, please take the full amount of insulin you had calculated before starting to eat. 2. If it has been over an hour since you started eating, please recheck your blood sugar and give acorrection only. 3. Try to stay active and drink lots of water, this will help bring down your blood sugars. Also try an avoid eating additional carbohydrates. Remember that blood sugars can be elevated by other thing than carbohydrates. So it is important tocheck prior to meal times even if you are not eating and give correction dose. Treatment of Low Blood Sugar (Hypoglycemia) If your BG is lower than 80, you are likely to feel shaky, sweaty and lightheaded. This is a signalthat your body needs more sugar. Quickly eat [...] Understanding the cause my help you to avoid another low BG in the future. Please test blood sugars prior to driving, make sure glucose levels are greater than 100mg/dl. If not have a snack and retest blood sugars in 15 minutes. Please carry a glucose source on you at all times. If blood sugar prior to bed is less than 110mg/dl, have a small 15 g of carbohydrate snack. Call your doctor for blood sugars less than 80 or greater than 300 twice in one day to have your insulin doses adjusted. 35 minute visit was spent evaluating diabetes and treatment plan, reviewing all glucose and insulindata as well as relevant laboratory results , and coordination of care on the inpatient unit including nursing and primary team. * Raysa Urban OT - 11/09/2023 2:24 PM EDT Occupational Therapy Evaluation Patient profile:Hope Yee is a 73 y.o. female with PMH of HTN, atrial fibrillation on rivaroxaban, poorly-controlled T2DM, CKD, chronic indwelling suprapubic catheter, and prior TIA presenting in transfer from [facility] with bradycardia, hypotension, and hyperglycemia. Past Medical History: Diagnosis Date Atrial fibrillation Diabetes mellitus GERD (gastroesophageal reflux disease) Hypertension Melanoma in situ s/p removal Rheumatoid arthritis SVT (supraventricular tachycardia) Past Surgical History: Procedure Laterality Date SECTION JOINT REPLACEMENT Social History: Patient lives alone in [place], [place] with her Aggie rai Home Setup: apt building w/ elevator access. She has a tub shower with grab bars, no seat DME: cane, 4WW Baseline ADL/Mobility: Pt was independent w/ ADL's and IADL's, though she doesn't drive. She manages her medications, though does admit to having some difficulty at times related to her vision. She receives driving services 2x/month. She enjoys watching TV and going shopping. She has been receiving[facility] for her LE wounds Precautions/Special Considerations: at risk to fall, DNR (code limitations), suprapubic catheter (chronic), carb control diet Subjective: My bones don't feel like they can hold me. Objective: Seen today for OT evaluation. Cognitive Status/Behavior: Behavior / Mood: alert and cooperative Alert and oriented to: person, place, date, month, year, day of week, time of day, and situation Follows commands: 1 step, 100% of the time, and requires repetition Attention: grossly WFL Safety awareness: decreased insight into deficits ? 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 Health literacy--has poorly managed DM Vision & Perception: H/o cataract surgery Reports she had a prescription for glasses but can't afford them Reports low vision r/t Diabetic Retinopathy-endorses some difficulty drawing her insulin accurately--benefits form extra light--discussed potential for a task light-may benefit from and/or [place] [employer] referral Communication: WFL Range of motion, strength, coordination: Hand dominance: left Bilateral UEs are within functional limitations for ROM, strength is grossly 4/5, coordination grossly intat LE limitations: max A Sensation: reports tingling in her R hand and poor sensation in her feet; has leg wounds that are wrapped; discussed need for her to wear shoes/slippers w/ heavy soles all the time to avoid stepping on things and causing a wound (she reports preferring to be barefoot) Activities of Daily Living: Self-feeding: carb control diet; not observed; do not anticipate deficits Grooming: seated w/ setup, edentulous Dressing: unable to reach her feet to don socks; reports she doesn't wear them; reviewed strong recommendation to wear a slip on shoe or slipper at all times to avoid wounds on her feet Bathing: anticipate mod A Toileting: has suprapubic catheter for urine-needs to empty /manage herself Transfer: min to commode w/ FWW Hygiene: difficulty w/ perineal hygiene; provided education re: front to back--may benefit from a toilet aid Self-management: h/o uncontrolled DM with variable blood sugar levels, neuropathy and visual impairment (assumed Diabetic Retinopathy); 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 Functional Mobility: Supine to sit: to L EOB w/ mod A (handhold) Sit to stand: CGA w/ FWW, increased time, pulling up on FWW Ambulation: pt pivoted bed to chair w/ FWW and CGA, increased time, tachycardic Stand to sit: decreased eccentric control, cue for positioning on commode then chair Pt was left sitting upright in the chair at the end of session Balance: Sitting balance: CGA, tendency to lean posteriorly during dynamic tasks Standing balance:CGA w/ FWW Vitals: HR: 104-120 sitting EOB, 139-165 w/ transfer to the chair--RN was made aware (limited further activity), BP: 125/71 (87), 122/91 (107) s/p transfer; Sp02: 97% on RA Pain: no c/o pain Skin: LE wounds dressed; suprpapubic catheter, long toenails Education: patient was educated on Role of occupational therapy/rehabilitation, Transfers, Assistive device/technique, ADL, Exercise, Positioning, Safety, Precautions/Protocol, Functional Mobility, Balance, Recommendations, and Discharge planning and needs reinforcement. Patient status, treatment, and mobility recommendations discussed with nursing. Assessment: Hope was seen for occupational therapy evaluation. Hope Yee presents with the following performance skill deficits and client factors: decreased activity tolerance, decreased flexibility/ROM, decreased strength, decreased sitting/standing balance, tachycardia, visual deficits, cognitive deficits, compromised mobility status, and skin integrity. Pt was limited this session by tachycardia but was able to transfer with CGA to min A and is currently requiring min-mod A for ADL's. She reports having low vision and being unable to afford her glasses prescription. She may alsobenefit from further diabetes and self-management education and practice. She lives alone with limited social support. At this time, recommend acute rehab before home to maximize her safety and help her train in self-management behaviors. Pt will benefit from further inpatient OT interventions to address performance deficits and maximize participation and independence with occupations of daily living. Equipment Recommendations: Equipment Needs Upon Discharge (OT): to be determined Anticipated Discharge Disposition (OT): acute rehabilitation facility, assisted living facility EP Level 4: Pivot to chair/commode, Participate in self care Other Recommendations: Transfer to recliner chair as appropriate with CGA to min A and FWW, ambulate as tolerated Encourage participation in ADL's by providing set up A on tray table and physical assist only as needed. Other Recommendations: No other consults recommended at this time Goals: To be achieved within 2 weeks, by 11/23/23: Patient will be modified independent for standing grooming tasks at the sink. Patient will be modified independent with LB dressing. Patient will be modified independent with toileting. Patient will be modified independent with sponge bath or shower. Patient will participate in further health literacy and self-management assessment. Plan: OT: Therapy Frequency (OT): 2-3 times/wk Planned OT interventions: Role of occupational therapy/rehabilitation, Transfers, Assistive device/technique, Adaptive equipment training, ADL, Exercise, Safety, Precautions/Protocol, Functional Mobility, Activity pacing/Energy conservation, Home Management, Balance, Recommendations, and Discharge planning. Total Minutes, Occupational Therapy: 36 (initial evaluation, 14:24-15:00) OT Evaluation Code Rationale: Diagnosis & Pertinent Co-Morbidities affecting Plan of Care: see PMHx Occupational Profile & Client History: Brief Expanded Extensive x Assessment of Occupational Performance: 1-3 performance deficits 3-5 performance deficits 5 + performance deficits x Clinical Decision Making: Low Moderate High x Clinical decision making of high complexity using standardized patient assessment instrument and measurable assessment of functional outcome. Pager: [phone] RAYSA URBAN OT 11/09/2023 Occupational Therapy Rehabilitation Department * Francis Roberts MD - 11/09/2023 1:33 PM EDT Hospital Medicine Attending Daily Progress Note Admit Date: 11/05/2023 Hospital Day 4 days Active Hospital Problems Diagnosis DKA (diabetic ketoacidosis) Permanent atrial fibrillation Resolved Hospital Problems No resolved problems to display. 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 2 diabetes mellitus, with fat layer exposed Seronegative rheumatoid arthritis Heart murmur Gastroesophageal reflux Pseudophakia, both eyes Diabetic peripheral neuropathy Hypertension, essential, benign Hyperlipidemia SVT (supraventricular tachycardia) Gait instability Seronegative arthritis Osteoarthrosis, unspecified whether generalized or localized, pelvic region and thigh Osteoarthrosis, unspecified whether generalized or localized, lower leg Osteoarthrosis, unspecified whether generalized or localized, ankle and foot Nevus History of malignant melanoma History of basal cell carcinoma Personal history of malignant melanoma Rosacea Basal cell carcinoma of back Malignant melanoma Inpatient Medications: Scheduled metoproloL tartrate 50 mg Oral Q6H DANNI insulin lispro 1-6 Units Subcutaneous Q4H DANNI insulin lispro 0-8 Units Subcutaneous TID WC insulin glargine (Lantus;Semglee) (100 unit/mL) subcutaneous injection 23 Units Subcutaneous Daily sodium chloride 0.9 % (flush) 5 mL Intravenous BID rivaroxaban 20 mg Oral Daily with dinner Continuous infusions: PRN: insulin lispro, glucose 40% oral geL OR dextrose OR glucagon, sodium chloride 0.9 % (flush), lidocaine Interval History NAEO No complaints Physical Exam Vitals Range last 24 hrs Temperature Temp: [36.4 ??C (97.5 ??F)-36.7 ??C (98.1 ??F)] Heart Rate Heart Rate: [102-112] Blood Pressure BP: (127-153)/(77-113) Respiratory Rate Resp: [11-27] SpO2 SpO2: [96 %-99 %] Intake/Output Summary (Last 24 hours) at 11/09/2023 1333 Last data filed at 11/09/2023 1155 Gross per 24 hour Intake 688 ml Output 3025 ml Net -2337 ml Patient Vitals for the past 168 hrs: Weight 11/05/23 0305 87.8 kg (193 lb 9 oz) Body mass index is 30.77 kg/m??. Physical Exam General: NAD, alert and oriented HEENT: EOMI, MMM CV: radial pulses 2+ bl, IRR Lungs: norm WOB Abd: NTND Ext: no edema LABS: Last 3 wbc, hgb, hct plt Recent Labs 11/09/23 0000 11/08/23 0018 11/07/23 0022 WBC 9.7* 10.7* 10.7* HGB 9.7* 10.1* 9.5* HCT 32.0* 33.6* 31.7* PLATELET 391* 389* 368* Last 3 Lytes Recent Labs 11/09/23 0000 11/08/23 0018 11/07/23 0754 NA 135 137 139 K 4.5 4.3 4.7 CL 102 103 103 CO2 24 25 28 BUN 17 11 12 CREATININE 0.86 0.76 0.89 Last 3 LFTs Recent Labs 11/09/23 0000 11/05/23 0335 AST 20 268* ALT 47* 174* ALKPHOS 76 119* BILITOT <0.2* 0.3 BILIDIR <0.1 0.2 FSBG Trend Recent Labs 11/09/23 1153 11/09/23 0741 11/09/23 0407 11/08/23 2206 11/08/23 1606 11/08/23 1212 11/08/23 0813 11/08/23 0351 11/08/23 0018 11/07/23 1924 POCGLU 193 108 188 412* 236* 221* 126 108 99 188 MICRO: No results for input(s): URINECULTURE in the last 720 hours. No results for input(s): GRAMSTAIN, BFCX, LOWERRESPCX, TISSUECX in the last 720 hours. Recent Labs 11/05/23 0400 11/05/23 0415 BLOODCX No growth at 4 days. No growth at 4 days. ECG: Recent Labs 11/05/23 0310 DIAGLINE Atrial fibrillation Low voltage QRS Prolonged QTc Abnormal ECG When compared with ECG of 11-JAN-2018 11:06, Nonspecific T wave abnormality no longer evident in Inferior leads Confirmed by fellow MD Johnson Augustin ([id number]) on 11/05/2023 2:07:55 PM Confirmed by MD Funk Danette ([id number]) on 11/06/2023 5:30:09 PM QTCCALC 492 VASCULAR: Recent Labs 11/09/23 1643 VBTEXTRPT Department: Vascular Surgery Lab Patient: [id number] (HOPE YEE) CPT: 08418 Referring Physician: JOAQUIM GEORGES Phone: Indications: Chronic LE wound ? perfusion Diabetes mellitus: Yes Findings: Right Pressure (mm Hg) Waveform TBI Brachial Artery 134 Dorsalis Pedis (Ankle) Artery >254 Triphasic Posterior Tibial (Ankle) Artery >254 Triphasic Great Toe 113 0.84 Left Pressure (mm Hg) Waveform TBI Brachial Artery IV Dorsalis Pedis (Ankle) Artery >254 Triphasic Posterior Tibial (Ankle) Artery >254 Triphasic Great Toe 111 0.83 Interpretation: RIGHT: No significant lower extremity arterial [...] ABIs with change from previous value: Date RIGHT DP RIGHT PT RT GR TOE RT Sec TOE 1.21 1.29 0.75 ---- Current ---- ---- 0.84(+.09) ---- Date LEFT DP LEFT PT LT GR TOE LT Sec TOE 1.21 1.22 0.76 ---- Current ---- ---- 0.83(+.07) ---- End of Report IMAGING: Results for orders placed or performed during the hospital encounter of 11/05/23 XR Chest One View (Exam End: 11/05/2023 3:58 AM) Result Value WORKSTATION ID [id number] Impression Right IJ central venous catheter with tip projecting over the right atrium. I have personally reviewed the image(s) and the resident's interpretation and agree with the findings, Emeka Wolfe MD at 11/05/2023 4:37 AM Thank you for letting us participate in the care of this patient. If you are a health care provider and have any questions regarding this report, please contact the number below. For patients who have questions please contact the health adult day care worker that requested your imaging first. 11/05/23 Interpretation Summary Normal left ventricular size with hyperdynamic systolic function. Ejection fraction is visually 70%. There are no regional wall motion abnormalities. The right ventricle is mildly dilated with normal systolic function. There is no significant valvular disease. Compared to prior echo from 01/08/18, there are no major changes. ASSESSMENT and PLAN: Hope Yee is a 73 y.o. female with PMH of HTN, atrial fibrillation on rivaroxaban, poorly-controlled T2DM, CKD, chronic indwelling suprapubic catheter, and prior TIA presenting in transfer from [facility] with bradycardia, hypotension, and hyperglycemia. 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 #Atrial fibrillation - Telemetry - consult EP tray recs, no ppm for now - Temp pacing wire removed 11/04 - Holding home diltiazem - metop tartrate q6h, uptitrating for goal HR < 110 at rest - Rivaroxaban 20 mg nightly #MELVA suspect prerenal, resolved #Hyperkalemia, improving - hold lokelma - ctm K and Cr #Hyperglycemia #Probable HHS, resolved #Poorly-controlled T2DM Last A1C 13.1 - Diabetes management following; appreciate recs - Holding home Trulicity, Jardiance, and metformin - SSI - MC - glargine #UTI, possibly associated with suprapubic catheter, in place for prior hx recurrent urinary retention - s/p Ceftriaxone 2g daily for 5 days (completed 11/08) # Sacral decub ulcer: - appreciate wound care consult #Housekeeping: - DVT PPx: Home rivaroxaban - Diet: Carb Control diet 60/60/75 CHO counting level 2 - Level of care: Med/ surg - Code Status: DNR but pre-arrest intubation is permitted Team Pager( Coverage 12/01): #[phone] PCP: KATHLEEN Retana [phone] Attestation: IPI Certification I certify that I am a D-H credentialed attending provider with admitting privileges and that the patient meets or has met medical necessity to require an inpatient IPI level of care meeting a minimumof two midnights or is on the [facility] inpatient only procedure list (status C) due to: afib RVR and awaiting PT eval. Francis Roberts MD 11/09/2023 * Laurie Perez, PT - 11/09/2023 1:04 PM EDT Physical Therapy Evaluation Total duration of encounter: 4 days Patient profile: Hope Yee is a 73 y.o. female with PMH of HTN, atrial fibrillation on rivaroxaban, poorly-controlled T2DM, CKD, chronic indwelling suprapubic catheter, and prior TIA presenting in transfer from [facility] with bradycardia, hypotension, and hyperglycemia. Patient with the following active problems: Past Medical History: Diagnosis Date Atrial fibrillation Diabetes mellitus GERD (gastroesophageal reflux disease) Hypertension Melanoma in situ s/p removal Rheumatoid arthritis SVT (supraventricular tachycardia) Past Surgical History: Procedure Laterality Date SECTION JOINT REPLACEMENT Social History: Patient lives alone with her parrot Echo. Lives in [facility] in apt building with elevator access. Normally uses elevator. Uses cane vs 4WW (when carrying things). Does not drive - uses senior bus for appts, groceries etc. Limited social supports. Enjoys watching TV and going shopping. Managesown medications. Some bowel incontinence/urgency. Has VNA (nursing only) for LE wounds Precautions/Special Considerations: DNR/limited code, fall risk, PIV, suprapubic catheter, carb control diet Mobility and Positioning Recommendations: Pt. to utilize FWW w/ 1A for transfers and ambulation with nursing. Please encourage up to chair for meal times as able. EPM Level 5: Ambulate, Participate in self care Subjective: ???my bones don't feel like they'll hold me up?? Objective: Pt seen for initial evaluation today. Pain: Number Location At rest none With activity none Vital Signs: At Rest With Activity SpO2 (RA) 98% 98% BP (MAP) 125/71 (87)mmHg 122/92 mmHg HR 110bpm 140s-160 bpm Behavior / Mood: alert and cooperative Oriented to: person, place, and date Follows commands: multi step and 100% of the time Attention: WFL Safety awareness: WFL RASS: 0 CAM: N/A Vision: had cataracts removed, needs glasses but can't afford Skin: intact but at risk for breakdown, dressings to bilateral LE below knees (reports hx of bilateral Le wound and edema) Musculoskeletal: ROM: WFL full AROM UE and LE Sensation: diminished protective sensation to bilateral feet, at risk for DFU, recommended use of shoes at all times for patient Tone: normal Strength: WFL UE and LE Bed Mobility: Supine to Sit: to L side EOB, mod A x1 vis hand hold Sit to Supine: N/A - left up in chair after PT Transfers: Sit to Stand: CGA from EOB with walker, increased time and effort, reliance on UE Stand to Sit: min A x1 for eccentric control and lowering Bed to Chair: stand step/ambulated with x1 min A and walker Other: commode transfer with x1 min A and walker Gait: Distance: 5 feet in room Device Used: FWW Level of Assist: CGAx1 Gait Comments: shortened step length, decreased tiffany. Limited due to tachycardia otherwise anticipate could ambulate household distances Stairs: N/A Balance: Sitting Static: good Sitting Dynamic: fair -posterior lean and near LOB while attempting to don socks in figure-4 Standing Static: fair with FWW, CGA Standing Dynamic / Gait: fair with FWW, min A Self Care: See OT note for details Education: patient educated on role of therapy, safety, use of protective foot wear, use of walker. Ongoing activity, and DC planning (rehab vs home), with fair understanding/demonstration. Patient status, treatment, and mobility recommendations discussed with nursing. Assessment: Hope Yee was seen today for physical therapy evaluation. Pt presented with impairments of balance, activity tolerance, hemodynamic instability, fatigue, activity tolerance, whichare currently contributing to functional limitations. Pt very pleasant and motivated to participatein therapy evaluation. Able to mobilize fairly well, with anticipation that she is near functional baseline (though deconditioned from prolonged bedrest/hospital stay). Mobility ultimately limited bytachycardia to 160s with activity, therefore unable to progress further. Expect once more hemodynamically stable will progress well. Should be able to make enough progress during hospital course to DC home. Recommend home health follow up for OT, PT, and nursing. Also recommend SW follow up due to limited resources. Additionally, would benefit from ongoing diabetes education and resources for assisted living environments. Pt will benefit from skilled therapy services throughout hospitalization to promote safety, independence, and provide developmental support/caregiver education. Discharge Recommendations: Based on the current findings, Anticipated Discharge Disposition (PT): home with home health (recommend start exploring assisted living environments) when medically ready for hospital discharge. Discharge recommendation is based on the patient's current physical impairments, prior functional status, potential to return to prior level of function, patient motivation, reported home support, potential for functional gains, current level of endurance, reported home environment and anticipated trajectory of progress and may change based on patient progress during this hospitalization. Consult Recommendations: Social Work - needs resources due to low income and can't afford glasses etc. Lives alone with minimal social supports. Diabetes team - education in management Wound care - for LE Equipment Needs: Anticipated Equipment Needs at Discharge (PT): None Inpatient/Acute Care PT Plan: Therapy Frequency (PT): 2-4 times/wk for therapy including balance training, bed mobility training, gait training, home exercise program, patient/family education, stairtraining, strengthening, and transfer training. X Consult service will continue to follow patient. PT signing off. Recommendations above, page if further consultation required. Goals: To be achieved by 11/21/23: Pt. to demonstrate knowledge of safety limitations and precautions Pt. to demonstrate understanding of appropriate exercises. Pt. to perform supine to/from sitting EOB with modified independence Pt. to perform sit to/from stand transfers with supervision and LRAD Pt. to ambulate 150 feet with supervision and least restrictive assistive device Pt. to ambulate up/down 3 step/stairs using single railing and/or cane with SBA (not essential for DC home but should be able to for emergency purposes) Pt to tolerate upright positioning with VSS 2017 PT Evaluation Code Rationale: Diagnosis & Pertinent Co-Morbidities, personal factors, and present illness affecting Plan of Care: (see above); Additional personal factors or co- morbidities that impact plan: Total # of Factors: (lives alone, DM, vision, poor sensation, hx LE wounds) 0 1-2 3+ x Examination of body system impairments, functional limitations and behaviors, and/or participation restrictions. Addressing 1-2 elements Addressing 3 + elements Addressing 4 + elements x Clinical presentation: See assessment above. (tachycardia) Stable/Uncomplicated Evolving/Fluctuating Symptoms Unstable/Unpredictable x Clinical decision making of high complexity based on pt's functional performance as outlined in this evaluation. Time IN / OUT: 7038-0353 Total Minutes, Physical Therapy: 38 Billing Code: x1 [place] Thank you for this consult. Laurie Perez, PT Pager: [phone] Physical Therapy Inpatient Rehabilitation Department * Zoe Cleveland, PSYCHOLOGICAL OPERATIONS SPECIALIST - 11/09/2023 8:08 AM EDT Follow Up Diabetes Consult Patient Interview Spent time today reviewing patient's glucose levels, insulin use and chart notes. Reviewed recommendations with patient. Patient denies any snacks. Had one small glass of diet soda. Objective Temp: [36.4 ??C (97.5 ??F)-36.7 ??C (98.1 ??F)] Heart Rate: [102-112] Resp: [11-27] BP: (127-153)/(77-113) SpO2: [96 %-99 %] Heart Rate from SpO2: [100 bpm-114 bpm] Current Regimen from previous note 1. Glargine 23 untis 2.Lispro 1unit: 10 gm carb ratio for each meal and snack 3.Lispro 1:20>160 Recent Glucose Levels Recent Labs 11/09/23 1153 11/09/23 0741 11/09/23 0407 11/08/23 2206 11/08/23 1606 11/08/23 1212 11/08/23 0813 11/08/23 0351 11/08/23 0018 11/07/23 1924 11/07/23 1742 11/07/23 1542 POCGLU 193 108 188 412* 236* 221* 126 108 99 188 153 176 ASSESSMENT Patient is a 73 y.o. years old female with PMH significant for DM (Last A1C of 13.1%) who was admitted on 11/05/2023 for DKA. Diabetes uncontrolled and currently complicated by unknown insulin requirements. Currently with variability of blood glucose levels while hospitalized requiring adjustment of insulin regimen and DM medications. Due to elevated baseline, changed carb ratio to 1:8 and added snack insulin. PLAN 1. Glargine 23 untis 2.Lispro 1unit: 8 gm carb ratio for each meal and snack 3.Lispro 1:20>140 Zoe Cleveland APRN [facility] End[facility]ology Diabetes Management Pager [phone] 35 minute visit was spent evaluating diabetes and treatment plan, reviewing all glucose and insulindata as well as relevant laboratory results , and coordination of care on the inpatient unit including nursing and primary team. * Angelika Woody P - 11/09/2023 7:51 AM EDT Inpatient Medicine Progress Note Interval Events/Subjective: BG 412 at 2200, received 6 units. Feeling well this morning. No chest pain, sob, abdominal pain. No catheter leaking, urine has been clear. Physical Exam: Last value Range last 24 hrs Temperature Temp: 36.4 ??C (97.5 ??F) Temp: [36.4 ??C (97.5 ??F)-37 ??C (98.6 ??F)] Heart Rate Heart Rate: (!) 106 Heart Rate: [102-112] Blood Pressure BP: (!) 127/91 BP: (127-153)/(77-113) Respiratory Rate Resp: 15 Resp: [13-27] SpO2 SpO2: 98 % SpO2: [96 %-99 %] - nursing notes and vitals reviewed Constitutional: NAD Neck: No JVD Respiratory: no wheezing or crackles CV: irregular, no murmurs GI: soft, NT, ND. Ext: irregular radial pulses 2+ Lymph: no peripheral edema, wearing compression bandages Musculoskeletal: no gross deformities noted Neuro: A+O x3, no neuro deficits noted Skin/Lines: multiple chronic wounds, suprapubic catheter in place draining clear urine Labs: Labs reviewed and notable for: - POC glucose: 102-236 overnight, 412 around 2200 - WBC 9.7 - Hb 9.7 - K normalizing 4.5 - Mag 0.68 (repleted) - Na normal 135 - Cr normal at 0.86 Microbiology: BCx: NGTD UCx: Not done Pertinent radiology/diagnostic studies: NA Assessment: Hope Yee is a 73 y.o. female with PMH of HTN, atrial fibrillation on rivaroxaban, poorly-controlled T2DM, CKD, chronic indwelling suprapubic catheter, and prior TIA presenting in transfer from [facility] with bradycardia, hypotension, and hyperglycemia. Plan: #Bradycardia - resolved #Atrial fibrillation # Elevated BNP #Hx of ?tachybrady syndrome HR in the 30s-40s at [facility], meds were held and temporary pacing wire was placed. HR normalized to 90s-100s after hyperglycemia tx. Temp pacing wire removed 11/04. Bradycardia was likely the result of accumulation of beta blockade and calcium channel blockade in the setting of a prerenal MELVA. Slowly uptrating home medications (home dose of metoprolol succinate 100mg BID and diltiazem 180mg QD). Anticoagulated on home dose of rivaroxaban. EP consulted, not recommending pacemaker placement at this time. - Telemetry - Holding home diltiazem - 37.25mg metoprolol tartrate Q6H, titrate as needed - Rivaroxaban 20 mg nightly #MELVA - improving, likely prerenal #Hyperkalemia #Pseudohyponatremia Her blood sugars have been very elevated at home, seemingly in the 400s-600s quite frequently, which would have led to an osmotic diuresis. All of this would have contributed to a prerenal MELVA and associated hyperkalemia. Cr 1.43 on admission, now improved to 0.91. Seems most likely that her hyponatremia was pseudohyponatremia in setting of hyperglycemia. Discontinued daily lokelma on 11/07 due tonormalizing potassium. - Daily BMP - Holding off on additional IV fluids given pulmonary vascular congestion #Hyperglycemia #Probable HHS #Poorly-controlled T2DM Glucose in the 500s-700s at presentation, more likely HHS than DKA due to normal AG and no ketones.Last A1C 13.1. Insulin gtt started then stopped afternoon of 11/04, restarted in evening then stopped on 11/05 morning. This episode seems to have been precipitated by both a course of diarrhea due to a new medication along with missing multiple doses of her medications per week. - Diabetes management following; appreciate the assistance - Holding home Trulicity, Jardiance, and metformin - 1:10 mealtime insulin, added snack insulin on 11/08. - Sensitive SSI - Starting 23 units of basal insulin daily based on diabetes team recs (home dose 30u of lantus nightly) - Daily BMP, mag, phos #UTI Patient had slight WBC on admission and soft BPs. Unclear whether she was having symptoms, but she did endorse possible fevers. Urinalysis likely shows contamination over infection, but patient is athigh infection risk with indwelling catheter. - Ceftriaxone 2g daily for total 5 day course (11/04-11/08) - Changed suprapubic catheter 11/05 #Wounds - Followed peripherally by wound care # Housekeeping Diet: Carb-controlled full diet Family Update: NA DVT: Xarelto Code Status: Do NOT Attempt CPR - Inpatient PCP: KATHLEEN Retana at [phone] Angelika Woody Pager # [phone] * Francis Roberts MD - 11/08/2023 3:44 PM EDT Hospital Medicine Attending Daily Progress Note Admit Date: 11/05/2023 Hospital Day 3 days Active Hospital Problems Diagnosis DKA (diabetic ketoacidosis) Permanent atrial fibrillation Resolved Hospital Problems No resolved problems to display. 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 2 diabetes mellitus, with fat layer exposed Seronegative rheumatoid arthritis Heart murmur Gastroesophageal reflux Pseudophakia, both eyes Diabetic peripheral neuropathy Hypertension, essential, benign Hyperlipidemia SVT (supraventricular tachycardia) Gait instability Seronegative arthritis Osteoarthrosis, unspecified whether generalized or localized, pelvic region and thigh Osteoarthrosis, unspecified whether generalized or localized, lower leg Osteoarthrosis, unspecified whether generalized or localized, ankle and foot Nevus History of malignant melanoma History of basal cell carcinoma Personal history of malignant melanoma Rosacea Basal cell carcinoma of back Malignant melanoma Inpatient Medications: Scheduled sodium zirconium cyclosilicate 10 g Oral Daily insulin lispro 1-6 Units Subcutaneous TID AC metoproloL tartrate 37.5 mg Oral Q6H DANNI insulin lispro 0-8 Units Subcutaneous TID WC insulin glargine (Lantus;Semglee) (100 unit/mL) subcutaneous injection 23 Units Subcutaneous Daily sodium chloride 0.9 % (flush) 5 mL Intravenous BID cefTRIAXone 2 g Intravenous Q24H rivaroxaban 20 mg Oral Daily with dinner Continuous infusions: PRN: glucose 40% oral geL OR dextrose OR glucagon, sodium chloride 0.9 % (flush), lidocaine Interval History NAEO No complaints Physical Exam Vitals Range last 24 hrs Temperature Temp: [36.7 ??C (98.1 ??F)-37 ??C (98.6 ??F)] Heart Rate Heart Rate: [98-131] Blood Pressure BP: (127-144)/(81-96) Respiratory Rate Resp: [13-32] SpO2 SpO2: [94 %-100 %] Intake/Output Summary (Last 24 hours) at 11/08/2023 1544 Last data filed at 11/08/2023 1200 Gross per 24 hour Intake 1216 ml Output 3375 ml Net -2159 ml Patient Vitals for the past 168 hrs: Weight 11/05/23 0305 87.8 kg (193 lb 9 oz) Body mass index is 30.77 kg/m??. Physical Exam General: NAD, alert and oriented HEENT: EOMI, MMM CV: radial pulses 2+ bl, IRR Lungs: norm WOB Abd: NTND Ext: no edema LABS: Last 3 wbc, hgb, hct plt Recent Labs 11/08/23 0018 11/07/23 0022 11/05/23 0335 WBC 10.7* 10.7* 10.3* HGB 10.1* 9.5* 9.7* HCT 33.6* 31.7* 32.4* PLATELET 389* 368* 428* Last 3 Lytes Recent Labs 11/08/23 0018 11/07/23 0754 11/07/23 0022 NA 137 139 140 K 4.3 4.7 5.0 CL 103 103 106 CO2 25 28 26 BUN 11 12 17 CREATININE 0.76 0.89 0.96 Last 3 LFTs Recent Labs 11/05/23 0335 AST 268* ALT 174* ALKPHOS 119* BILITOT 0.3 BILIDIR 0.2 FSBG Trend Recent Labs 11/08/23 1212 11/08/23 0813 11/08/23 0351 11/08/23 0018 11/07/23 1924 11/07/23 1742 11/07/23 1542 11/07/23 1146 11/07/23 0752 11/07/23 0410 POCGLU 221* 126 108 99 188 153 176 167 97 98 MICRO: No results for input(s): URINECULTURE in the last 720 hours. No results for input(s): GRAMSTAIN, BFCX, LOWERRESPCX, TISSUECX in the last 720 hours. Recent Labs 11/05/23 0400 11/05/23 0415 BLOODCX No growth at 3 days. No growth at 3 days. ECG: Recent Labs 11/05/23 0310 DIAGLINE Atrial fibrillation Low voltage QRS Prolonged QTc Abnormal ECG When compared with ECG of 11-JAN-2018 11:06, Nonspecific T wave abnormality no longer evident in Inferior leads Confirmed by fellow MD Johnson Augustin ([id number]) on 11/05/2023 2:07:55 PM Confirmed by MD Funk Danette ([id number]) on 11/06/2023 5:30:09 PM QTCCALC 492 VASCULAR: No results for input(s): VBTEXTRPT in the last 720 hours. IMAGING: Results for orders placed or performed during the hospital encounter of 11/05/23 XR Chest One View (Exam End: 11/05/2023 3:58 AM) Result Value WORKSTATION ID [id number] Impression Right IJ central venous catheter with tip projecting over the right atrium. I have personally reviewed the image(s) and the resident's interpretation and agree with the findings, Emeka Wolfe MD at 11/05/2023 4:37 AM Thank you for letting us participate in the care of this patient. If you are a health care provider and have any questions regarding this report, please contact the number below. For patients who have questions please contact the health adult day care worker that requested your imaging first. 11/05/23 Interpretation Summary Normal left ventricular size with hyperdynamic systolic function. Ejection fraction is visually 70%. There are no regional wall motion abnormalities. The right ventricle is mildly dilated with normal systolic function. There is no significant valvular disease. Compared to prior echo from 01/08/18, there are no major changes. ASSESSMENT and PLAN: Hope Yee is a 73 y.o. female with PMH of HTN, atrial fibrillation on rivaroxaban, poorly-controlled T2DM, CKD, chronic indwelling suprapubic catheter, and prior TIA presenting in transfer from [facility] with bradycardia, hypotension, and hyperglycemia. 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 #Atrial fibrillation - Telemetry - consult EP tray recs - Temp pacing wire removed 11/04 - Holding home diltiazem - metop tartrate q6h - Rivaroxaban 20 mg nightly #MELVA suspect prerenal, resolved #Hyperkalemia - Lokelma daily - ctm K and Cr #Hyperglycemia #Probable HHS, resolved #Poorly-controlled T2DM Last A1C 13.1 - Diabetes management following; appreciate recs - Holding home Trulicity, Jardiance, and metformin - SSI - MC - glargine #UTI, possibly associated with suprapubic catheter, in place for prior hx recurrent urinary retention - Ceftriaxone 2g daily for 5 days # Sacral decub ulcer: - appreciate wound care consult #Housekeeping: - DVT PPx: Home rivaroxaban - Diet: Carb Control diet 60/60/75 CHO counting level 2 - Level of care: Med/ surg - Code Status: DNR but pre-arrest intubation is permitted Team Pager( Coverage 12/01): #[phone] PCP: KATHLEEN Retana [phone] Attestation: IPI Certification I certify that I am a D-H credentialed attending provider with admitting privileges and that the patient meets or has met medical necessity to require an inpatient IPI level of care meeting a minimumof two midnights or is on the [facility] inpatient only procedure list (status C) due to: afib RVR Francis Roberts MD 11/08/2023 * Francis Roberts MD - 11/07/2023 3:57 PM EDT Hospital Medicine Attending Daily Progress Note Admit Date: 11/05/2023 Hospital Day 2 days Active Hospital Problems Diagnosis DKA (diabetic ketoacidosis) Resolved Hospital Problems No resolved problems to display. PMH Active Non-Hospital Problems Diagnosis Syncope Symptomatic bradycardia Diabetes mellitus Morbid obesity Atrial fibrillation Diabetic ulcer of toe of right foot associated with type 2 diabetes mellitus, with fat layer exposed Seronegative rheumatoid arthritis Heart murmur Gastroesophageal reflux Pseudophakia, both eyes Diabetic peripheral neuropathy Hypertension, essential, benign Hyperlipidemia SVT (supraventricular tachycardia) Gait instability Seronegative arthritis Osteoarthrosis, unspecified whether generalized or localized, pelvic region and thigh Osteoarthrosis, unspecified whether generalized or localized, lower leg Osteoarthrosis, unspecified whether generalized or localized, ankle and foot Nevus History of malignant melanoma History of basal cell carcinoma Personal history of malignant melanoma Rosacea Basal cell carcinoma of back Malignant melanoma Inpatient Medications: Scheduled insulin lispro 0-8 Units Subcutaneous TID WC insulin glargine (Lantus;Semglee) (100 unit/mL) subcutaneous injection 23 Units Subcutaneous Daily insulin lispro 1-6 Units Subcutaneous Q4H DANNI metoproloL tartrate 25 mg Oral Q6H DANNI sodium chloride 0.9 % (flush) 5 mL Intravenous BID cefTRIAXone 2 g Intravenous Q24H sodium zirconium cyclosilicate 10 g Oral Daily rivaroxaban 20 mg Oral Daily with dinner Continuous infusions: PRN: glucose 40% oral geL OR dextrose OR glucagon, sodium chloride 0.9 % (flush), lidocaine Interval History NAEO No complaints. Denies CP, SOB Physical Exam Vitals Range last 24 hrs Temperature Temp: [36.4 ??C (97.5 ??F)-36.9 ??C (98.4 ??F)] Heart Rate Heart Rate: [90-118] Blood Pressure BP: (127-143)/(65-96) Respiratory Rate Resp: [11-20] SpO2 SpO2: [94 %-100 %] Intake/Output Summary (Last 24 hours) at 11/07/20232057 Last data filed at 11/07/20231999 Gross per 24 hour Intake 1296 ml Output 3850 ml Net -2554 ml Patient Vitals for the past 168 hrs: Weight 11/05/23 0305 87.8 kg (193 lb 9 oz) Body mass index is 30.77 kg/m??. Physical Exam General: NAD, alert and oriented HEENT: EOMI, MMM CV: RRR, nrml S1/2, no MRGs Lungs: CTAB, no w/r/s/r Abd: NTND Ext: no edema LABS: Last 3 wbc, hgb, hct plt Recent Labs 11/07/23 0022 11/05/23 0335 WBC 10.7* 10.3* HGB 9.5* 9.7* HCT 31.7* 32.4* PLATELET 368* 428* Last 3 Lytes Recent Labs 11/07/23 0754 11/07/23 0022 11/06/23 1533 NA 139 140 135 K 4.7 5.0 4.8 CL 103 106 103 CO2 28 26 23 BUN 12 17 17 CREATININE 0.89 0.96 0.92 Last 3 LFTs Recent Labs 11/05/23 0335 AST 268* ALT 174* ALKPHOS 119* BILITOT 0.3 BILIDIR 0.2 FSBG Trend Recent Labs 11/07/23 1924 11/07/23 1742 11/07/23 1542 11/07/23 1146 11/07/23 0752 11/07/23 0410 11/07/23 0018 11/06/23 1930 11/06/23 1810 11/06/23 1552 POCGLU 188 153 176 167 97 98 117 192 186 179 MICRO: No results for input(s): URINECULTURE in the last 720 hours. No results for input(s): GRAMSTAIN, BFCX, LOWERRESPCX, TISSUECX in the last 720 hours. Recent Labs 11/05/23 0400 11/05/23 0415 BLOODCX No growth at 2 days. No growth at 2 days. ECG: Recent Labs 11/05/23 0310 DIAGLINE Atrial fibrillation Low voltage QRS Prolonged QTc Abnormal ECG When compared with ECG of 11-JAN-2018 11:06, Nonspecific T wave abnormality no longer evident in Inferior leads Confirmed by fellow MD Johnson Augustin ([id number]) on 11/05/2023 2:07:55 PM Confirmed by MD Funk Danette ([id number]) on 11/06/2023 5:30:09 PM QTCCALC 492 VASCULAR: No results for input(s): VBTEXTRPT in the last 720 hours. IMAGING: Results for orders placed or performed during the hospital encounter of 11/05/23 XR Chest One View (Exam End: 11/05/2023 3:58 AM) Result Value WORKSTATION ID [id number] Impression Right IJ central venous catheter with tip projecting over the right atrium. I have personally reviewed the image(s) and the resident's interpretation and agree with the findings, Emeka Wolfe MD at 11/05/2023 4:37 AM Thank you for letting us participate in the care of this patient. If you are a health care provider and have any questions regarding this report, please contact the number below. For patients who have questions please contact the health adult day care worker that requested your imaging first. 11/05/23 Interpretation Summary Normal left ventricular size with hyperdynamic systolic function. Ejection fraction is visually 70%. There are no regional wall motion abnormalities. The right ventricle is mildly dilated with normal systolic function. There is no significant valvular disease. Compared to prior echo from 01/08/18, there are no major changes. ASSESSMENT and PLAN: Hope Yee is a 73 y.o. female with PMH of HTN, atrial fibrillation on rivaroxaban, poorly-controlled T2DM, CKD, chronic indwelling suprapubic catheter, and prior TIA presenting in transfer from [facility] with bradycardia, hypotension, and hyperglycemia. 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 #Atrial fibrillation - Telemetry - consult EP tray recs - Temp pacing wire removed 11/04 - Holding home diltiazem - metop tartrate q6h - Rivaroxaban 20 mg nightly #MELVA suspect prerenal, resolved #Hyperkalemia - Lokelma daily - ctm K and Cr #Hyperglycemia #Probable HHS, resolved #Poorly-controlled T2DM Last A1C 13.1 - Diabetes management following; appreciate recs - Holding home Trulicity, Jardiance, and metformin - SSI - MC - glargine #UTI with suprapubic catheter in place for prior hx recurrent urinary retention - Ceftriaxone 2g daily for 5 days # Sacral decub ulcer: - appreciate wound care consult #Housekeeping: - DVT PPx: Home rivaroxaban - Diet: Carb Control diet 60/60/75 CHO counting level 2 - Level of care: Med/ surg - Code Status: DNR but pre-arrest intubation is permitted Team Pager( Coverage 12/01): #[phone] PCP: KATHLEEN Retana [phone] Attestation: IPI Certification I certify that I am a D-H credentialed attending provider with admitting privileges and that the patient meets or has met medical necessity to require an inpatient IPI level of care meeting a minimumof two midnights or is on the [facility] inpatient only procedure list (status C) due to: recent symptomatic bradycardia and concern for tachybrady syndrome with ongoing urgent work-up Francis Roberts MD 11/07/2023 * Angelika Woody P - 11/07/2023 8:01 AM EDT Inpatient Medicine Progress Note Interval Events/Subjective: Mag 0.68, repleted overnight. Feeling well this morning. No chest pain, sob, abdominal pain. No catheter leaking after replacement yesterday. Physical Exam: Last value Range last 24 hrs Temperature Temp: 36.8 ??C (98.2 ??F) Temp: [36.4 ??C (97.5 ??F)-36.9 ??C (98.4 ??F)] Heart Rate Heart Rate: 90 Heart Rate: [90-132] Blood Pressure BP: 128/65 BP: (121-144)/(65-113) Respiratory Rate Resp: 13 Resp: [13-22] SpO2 SpO2: 99 % SpO2: [88 %-99 %] - nursing notes and vitals reviewed Constitutional: NAD Neck: No JVD Respiratory: no wheezing or crackles CV: irregular, no murmurs GI: soft, NT, ND. Ext: irregular radial pulses 2+ and DP pulses 1+ bilaterally Lymph: no peripheral edema, wearing compression bandages Musculoskeletal: no gross deformities noted Neuro: A+O x3, no neuro deficits noted Skin/Lines: multiple chronic wounds, suprapubic catheter in place Labs: Labs reviewed and notable for: - BNP 4733 - POC glucose: 97-107 overnight, 138 around 8am after drip stopped WBC 10.7 Hb 9.5 - K normalizing (5.3 -> 5) - Mag 0.68 (repleted) - Na normal (140) - Cr normal at 0.96 Microbiology: BCx: NGTD UCx: Not done Pertinent radiology/diagnostic studies: NA Assessment: Hope Yee is a 73 y.o. female with PMH of HTN, atrial fibrillation on rivaroxaban, poorly-controlled T2DM, CKD, chronic indwelling suprapubic catheter, and prior TIA presenting in transfer from [facility] with bradycardia, hypotension, and hyperglycemia. Plan: #Bradycardia - resolved #Atrial fibrillation # Elevated BNP #Hx of ?tachybrady syndrome HR in the 30s-40s at [facility], meds were held and temporary pacing wire was placed. HR normalized to 90s-100s after hyperglycemia tx. Temp pacing wire removed 11/04. Bradycardia was likely the result of accumulation of beta blockade and calcium channel blockade in the setting of a prerenal MELVA. Slowly uptrating home medications (home dose of metoprolol succinate 100mg BID and diltiazem 180mg QD). Anticoagulated on home dose of rivaroxaban. - Telemetry - Holding home diltiazem - 25mg metoprolol tartrate Q6H, titrate as needed - Rivaroxaban 20 mg nightly - consulted cardiology EP, appreciate recs #MELVA - improving, likely prerenal #Hyperkalemia #Pseudohyponatremia Her blood sugars have been very elevated at home, seemingly in the 400s-600s quite frequently, which would have led to an osmotic diuresis. All of this would have contributed to a prerenal MELVA and associated hyperkalemia. Cr 1.43 on admission, now improved to 0.91. Seems most likely that her hyponatremia was pseudohyponatremia in setting of hyperglycemia. - Daily BMP - Lokelma daily until potassium normalizes - Holding off on additional IV fluids given pulmonary vascular congestion #Hyperglycemia #Probable HHS #Poorly-controlled T2DM Glucose in the 500s-700s at presentation, more likely HHS than DKA due to normal AG and no ketones.Last A1C 13.1. Insulin gtt started then stopped afternoon of 11/04, restarted in evening then stopped on 11/05 morning. This episode seems to have been precipitated by both a course of diarrhea due to a new medication along with missing multiple doses of her medications per week. - Diabetes management following; appreciate the assistance - Holding home Trulicity, Jardiance, and metformin - 1:10 mealtime insulin - Sensitive SSI - Starting 23 units of basal insulin daily based on diabetes team recs (home dose 30u of lantus nightly) - Daily BMP, mag, phos #UTI Patient had slight WBC on admission and soft BPs. Unclear whether she was having symptoms, but she did endorse possible fevers. Urinalysis likely shows contamination over infection, but patient is athigh infection risk with indwelling catheter. - Ceftriaxone 2g daily for total 5 day course (11/04-11/08) - Changed suprapubic catheter 11/05 #Wounds - Followed peripherally by wound care # Housekeeping Diet: Carb-controlled full diet Family Update: NA DVT: Xarelto Code Status: Do NOT Attempt CPR - Inpatient PCP: KATHLEEN Retana at [phone] Angelika Woody Pager # [phone] * Darlyn Flores MD - 11/06/2023 12:16 PM EDT Hospital Medicine Attending Daily Progress Note Admit Date: 11/05/2023 Hospital Day 1 day Active Hospital Problems Diagnosis DKA (diabetic ketoacidosis) Resolved Hospital Problems No resolved problems to display. PMH Active Non-Hospital Problems Diagnosis Syncope Symptomatic bradycardia Diabetes mellitus Morbid obesity Atrial fibrillation Diabetic ulcer of toe of right foot associated with type 2 diabetes mellitus, with fat layer exposed Seronegative rheumatoid arthritis Heart murmur Gastroesophageal reflux Pseudophakia, both eyes Diabetic peripheral neuropathy Hypertension, essential, benign Hyperlipidemia SVT (supraventricular tachycardia) Gait instability Seronegative arthritis Osteoarthrosis, unspecified whether generalized or localized, pelvic region and thigh Osteoarthrosis, unspecified whether generalized or localized, lower leg Osteoarthrosis, unspecified whether generalized or localized, ankle and foot Nevus History of malignant melanoma History of basal cell carcinoma Personal history of malignant melanoma Rosacea Basal cell carcinoma of back Malignant melanoma Inpatient Medications: Scheduled insulin lispro 0-8 Units Subcutaneous TID WC insulin glargine (Lantus;Semglee) (100 unit/mL) subcutaneous injection 23 Units Subcutaneous Daily insulin lispro 1-6 Units Subcutaneous Q4H DANNI sodium chloride 0.9 % (flush) 5 mL Intravenous BID cefTRIAXone 2 g Intravenous Q24H sodium zirconium cyclosilicate 10 g Oral Daily metoproloL tartrate 12.5 mg Oral Q6H DANNI rivaroxaban 20 mg Oral Daily with dinner Continuous infusions: PRN: glucose 40% oral geL OR dextrose OR glucagon, sodium chloride 0.9 % (flush), lidocaine Interval History feeling better today. SP cath leaking, thinks that urine got in her wounds and is burning. Otherwise no sob, chest pain, abd pain, n/v/d Physical Exam Vitals Range last 24 hrs Temperature Temp: [36.3 ??C (97.3 ??F)-37.3 ??C (99.1 ??F)] Heart Rate Heart Rate: [83-132] Blood Pressure BP: (108-144)/(57-96) Respiratory Rate Resp: [11-22] SpO2 SpO2: [91 %-98 %] Intake/Output Summary (Last 24 hours) at 11/06/2023 1216 Last data filed at 11/06/2023 1100 Gross per 24 hour Intake 970.3 ml Output 2352 ml Net -1381.7 ml Patient Vitals for the past 168 hrs: Weight 11/05/23 0305 87.8 kg (193 lb 9 oz) Body mass index is 30.77 kg/m??. Physical Exam General: Awake, alert, sitting up in bed in no apparent distress HEENT: atraumatic and normocephalic; anicteric sclera, oropharynx clear with moist mucous membranes Cardiovascular: Regular rate, irregularly irregular rhythm, normal S1 and S2, no murmurs, gallops, or rubs; 2+ radial pulse Respiratory: Lungs clear to auscultation bilaterally with good air movement; no wheezes, crackles, or rhonchi, normal work of breathing on NC GI: Abdomen soft, non-tender, and non-distended without rebound or guarding; normoactive bowel sounds, SP cath in place Extremities: Legs wrapped in compression bandages; sensation intact in distal feet; chronic wounds present under bandages Skin: sacrum , RLE pressure ulcers - see photos in wound care note Neuro: A&0x3, speech grossly intact, moving all extremities against gravity Studies reviewed in eDH. Remarkable for the following: LABS: Last 3 wbc, hgb, hct plt Recent Labs 11/05/23 0335 WBC 10.3* HGB 9.7* HCT 32.4* PLATELET 428* Last 3 Lytes Recent Labs 11/06/23 0745 11/06/23 0144 11/05/23 2345 11/05/23 1224 NA 141 -- 140 137 K 5.3* 4.9 Not Perf 4.8 CL 106 -- 109* 106 CO2 24 -- 24 21* BUN 19* -- 22* 27* CREATININE 0.91 -- 1.03 1.13 Last 3 LFTs Recent Labs 11/05/23 0335 AST 268* ALT 174* ALKPHOS 119* BILITOT 0.3 BILIDIR 0.2 FSBG Trend Recent Labs 11/06/23 0748 11/06/23 0419 11/06/23 0308 11/06/23 0204 11/06/23 0116 11/06/23 0046 11/06/23 0018 11/05/23 2343 11/05/23 2304 11/05/23 2203 POCGLU 138 107 97 102 86 75 75 91 114 179 MICRO: No results for input(s): URINECULTURE in the last 720 hours. No results for input(s): GRAMSTAIN, BFCX, LOWERRESPCX, TISSUECX in the last 720 hours. Recent Labs 11/05/23 0400 11/05/23 0415 BLOODCX No growth at 1 day. No growth at 1 day. ECG: No results for input(s): DIAGLINE, QTCCALC in the last 720 hours. VASCULAR: No results for input(s): VBTEXTRPT in the last 720 hours. IMAGING: Results for orders placed or performed during the hospital encounter of 11/05/23 XR Chest One View (Exam End: 11/05/2023 3:58 AM) Result Value WORKSTATION ID [id number] Impression Right IJ central venous catheter with tip projecting over the right atrium. I have personally reviewed the image(s) and the resident's interpretation and agree with the findings, Emeka Wolfe MD at 11/05/2023 4:37 AM Thank you for letting us participate in the care of this patient. If you are a health care provider and have any questions regarding this report, please contact the number below. For patients who have questions please contact the health adult day care worker that requested your imaging first. 11/05/23 Interpretation Summary Normal left ventricular size with hyperdynamic systolic function. Ejection fraction is visually 70%. There are no regional wall motion abnormalities. The right ventricle is mildly dilated with normal systolic function. There is no significant valvular disease. Compared to prior echo from 01/08/18, there are no major changes. ASSESSMENT and PLAN: Hope Yee is a 73 y.o. female with PMH of HTN, atrial fibrillation on rivaroxaban, poorly-controlled T2DM, CKD, chronic indwelling suprapubic catheter, and prior TIA presenting in transfer from [facility] with bradycardia, hypotension, and hyperglycemia. It seems that her bradycardia is the result of accumulation of beta blockade and calcium channel blockade in the setting of a prerenal MELVA. She has been having several days of diarrhea, likely a sideeffect of her outpatient diabetes medications. Her blood sugars have been very elevated at home, seemingly in the 400s-600s quite frequently, which would have led to an osmotic diuresis. All of this would have contributed to a prerenal MELVA and associated hyperkalemia. Reassuringly, her HR has been in the 80s-100s since arrival, and her MELVA and electrolyte derangements are improving. Seems most likely that her hyponatremia was pseudohyponatremia in setting of hyperglycemia. We will slowly re-introduce beta blockade as her kidney function is improving. Continuing home rivaroxaban for AC for herAF. Given that her anion gap and BOHB were not elevated, it is unlikely that her presentation was DKA. More likely HHS or just chronically subobtimally controlled T2DM. She will need close blood sugar monitoring and titration of her home diabetes regimen. Appreciate Diabetes Management team's assistance. Her insulin gtt was stopped this afternoon due to persistent blood glucose in the low 100s. We will continue meal-time insulin and start SSI for dose finding, with a plan to restart basal insulin tomorrow. She will benefit from a simplified outpatient regimen and ongoing education. Hope is being treated with CTX for a possible UTI. It is unclear whether she was having symptoms,but she did endorse possible fevers. Will plan for 5-day course of abx. #Bradycardia - resolved #Atrial fibrillation - HR in the 30s-40s at [facility], now in the 90s-100s - Telemetry - Temp pacing wire removed 11/04 - Holding home diltiazem - Restart metoprolol tartrate 12.5 mg q6h, increase very slowly - Rivaroxaban 20 mg nightly #MELVA - improving, likely prerenal #Hyperkalemia #Pseudohyponatremia - Cr 1.43 on admission, now improving - Daily BMP - Lokelma daily - Holding off on additional IV fluids given pulmonary vascular congestion - K slightly worse today but creatinine improved #Hyperglycemia #Probable HHS #Poorly-controlled T2DM - Glucose in the 500s-700s at presentation - Last A1C 13.1 - Insulin gtt stopped afternoon of 11/04 - Diabetes management following; appreciate the assistance - Holding home Trulicity, Jardiance, and metformin - 1:10 mealtime insulin - Sensitive SSI - restart basal inusiln at 23 units today - d/c the gtt. D/w DM team and appreciate their input - Daily BMP, mag, phos #UTI with suprapubic catheter in place for prior hx recurrent urinary retention - Ceftriaxone 2g daily for 5 days # Sacral decub: appreciate wound care consult #Housekeeping: - DVT PPx: Home rivaroxaban - GI PPx: Not indicated - Diet: Carb Control diet 60/60/75 CHO counting level 2 - Level of care: Med/ surg - Vitals: q4h Team Pager( Coverage 12/01): #[phone] PCP: KATHLEEN Retana [phone] Attestation: IPI Certification I certify that I am a D-H credentialed attending provider with admitting privileges and that the patient meets or has met medical necessity to require an inpatient IPI level of care meeting a minimumof two midnights or is on the [facility] inpatient only procedure list (status C) due to: hyperglycemia DARLYN Flores MD 11/06/2023 * Zoe Cleveland, PSYCHOLOGICAL OPERATIONS SPECIALIST - 11/06/2023 8:16 AM EDT Follow Up Diabetes Consult Patient Interview Spent time today reviewing patient's glucose levels, insulin use and chart notes. Reviewed recommendations with patient . Objective Temp: [36.4 ??C (97.5 ??F)-37.3 ??C (99.1 ??F)] Heart Rate: [83-132] Resp: [11-22] BP: (108-144)/(57-88) SpO2: [91 %-98 %] Heart Rate from SpO2: [83 bpm-111 bpm] Current Regimen from previous note 1. Continue titratable drip 2.Lispro 1unit: 10 gm carb ratio for each meal and snack 3.Recommend ordering a fasting glucose and cpeptide Recent Glucose Levels Recent Labs 11/06/23 1552 11/06/23 1219 11/06/23 0748 11/06/23 0419 11/06/23 0308 11/06/23 0204 11/06/23 0116 11/06/23 0046 11/06/23 0018 11/05/23 2343 11/05/23 2304 11/05/23 2203 POCGLU 179 215* 138 107 97 102 86 75 75 91 114 179 ASSESSMENT Patient is a 73 y.o. years old female with PMH significant for DM (Last A1C of 13.1%) who was admitted on 11/05/2023 for DKA. Diabetes uncontrolled and currently complicated by unknown insulin requirements. Currently with variability of blood glucose levels while hospitalized requiring adjustment of insulin regimen and DM medications. Patient used 47 units in 24 hours. This translates 23 of glargine and lispro 1:10 CR and 1:30 correction Plan: 1. Glargine 23 untis 2.Lispro 1unit: 10 gm carb ratio for each meal and snack 3.Lispro 1;30>160 Zoe Cleveland APRN [facility] Diabetes Management Pager [phone] 35 minute visit was spent evaluating diabetes and treatment plan, reviewing all glucose and insulindata as well as relevant laboratory results , and coordination of care on the inpatient unit including nursing and primary team. * Angelika Woody - 11/06/2023 7:59 AM EDT Inpatient Medicine Progress Note Interval Events/Subjective: Insulin drip stopped around 3am due to BG around 100. Feeling well this AM. Reporting itchiness on left neck near dressing. Also reporting burning with suprapubic catheter leaks. Physical Exam: Last value Range last 24 hrs Temperature Temp: 37.3 ??C (99.1 ??F) Temp: [36.3 ??C (97.3 ??F)-37.3 ??C (99.1 ??F)] Heart Rate Heart Rate: (!) 132 Heart Rate: [83-132] Blood Pressure BP: 144/88 BP: (108-144)/(57-96) Respiratory Rate Resp: 16 Resp: [11-22] SpO2 SpO2: 97 % SpO2: [91 %-98 %] - nursing notes and vitals reviewed Constitutional: NAD Neck: No JVD Respiratory: no wheezing or crackles CV: irregular, no murmurs GI: soft, NT, ND. Ext: irregular radial pulses 2+ and DP pulses 1+ bilaterally Lymph: no peripheral edema, wearing compression bandages Musculoskeletal: no gross deformities noted Neuro: A+O x3, no neuro deficits noted Skin/Lines: multiple chronic wounds, suprapubic catheter in place Labs: Labs reviewed and notable for: - POC glucose: 97-107 overnight, 138 around 8am after drip stopped - K elevated 5.3 (up from 4.9) - Na normalizing (140-141) - Cr normalizing at 0.91 Microbiology: BCx: NGTD UCx: Not done Pertinent radiology/diagnostic studies: NA Assessment: Hope Yee is a 73 y.o. female with PMH of HTN, atrial fibrillation on rivaroxaban, poorly-controlled T2DM, CKD, chronic indwelling suprapubic catheter, and prior TIA presenting in transfer from [facility] with bradycardia, hypotension, and hyperglycemia. Plan: #Bradycardia - resolved #Atrial fibrillation HR in the 30s-40s at [facility], meds were held and temporary pacing wire was placed. HR normalized to 90s-100s after hyperglycemia tx. Temp pacing wire removed 11/04. Has been stating at HR of 110-130 without bradycardia on 50mg total dose of metoprolol tartrate. Bradycardia was likely the result of accumulation of beta blockade and calcium channel blockade in the setting of a prerenal MELVA. Anticoagulated on home dose of rivaroxaban. - Telemetry - Holding home diltiazem - Alternate metoprolol tartrate between 12.5mg and 25mg every 6 hours, titrate as needed - Rivaroxaban 20 mg nightly #MELVA - improving, likely prerenal #Hyperkalemia #Pseudohyponatremia Her blood sugars have been very elevated at home, seemingly in the 400s-600s quite frequently, which would have led to an osmotic diuresis. All of this would have contributed to a prerenal MELVA and associated hyperkalemia. Cr 1.43 on admission, now improved to 0.91. Seems most likely that her hyponatremia was pseudohyponatremia in setting of hyperglycemia. - Daily BMP - Lokelma daily until potassium normalizes - Holding off on additional IV fluids given pulmonary vascular congestion #Hyperglycemia #Probable HHS #Poorly-controlled T2DM Glucose in the 500s-700s at presentation, more likely HHS than DKA due to normal AG and no ketones.Last A1C 13.1. Insulin gtt started then stopped afternoon of 11/04, restarted in evening then stopped on 11/05 morning. This episode seems to have been precipitated by both a course of diarrhea due to a new medication along with missing multiple doses of her medications per week. - Diabetes management following; appreciate the assistance - Holding home Trulicity, Jardiance, and metformin - 1:10 mealtime insulin - Sensitive SSI - Starting 23 units of basal insulin daily based on diabetes team recs (home dose 30u of lantus nightly) - Daily BMP, mag, phos #UTI Patient had slight WBC on admission and soft BPs. Unclear whether she was having symptoms, but she did endorse possible fevers. Urinalysis likely shows contamination over infection, but patient is athigh infection risk with indwelling catheter. - Ceftriaxone 2g daily for total 5 day course (11/04-11/08) - Changed suprapubic catheter #Wounds - Followed peripherally by wound care # Housekeeping Diet: Carb-controlled full diet Family Update: NA DVT: Xarelto Code Status: Do NOT Attempt CPR - Inpatient PCP: KATHLEEN Retana at [phone] Angelika Woody Pager # [phone] * Ruben Wright MD - 11/05/2023 7:06 AM EDT MICU STAFF PROGRESS NOTE Critical Care Medicine Author: RUBEN WRIGHT Patient seen and examined on critical care rounds. Active problems: Symptomatic bradycardia, possible beta alicia toxicity Hypotension Hyperkalemia DKA vs HHS Lactic acidosis, ? Metformin toxicity UTI MELVA Chronic indwelling barber Interval Events: Admitted to MICU. HR has been in the normal range without intervention. Reports she feels better. Denies nausea, chest pain, chest pressure. Intake/output in past 24 hours: +627 Vitals: Last value Range last 24 hrs Temperature Temp: 36.4 ??C (97.5 ??F) Temp: [36.4 ??C (97.5 ??F)-37 ??C (98.6 ??F)] Heart Rate Heart Rate: 78 Heart Rate: [71-78] Blood Pressure BP: 119/70 BP: (88-126)/(47-73) Respiratory Rate Resp: 17 Resp: [16-21] SpO2 SpO2: 96 % SpO2: [82 %-97 %] Art BP BP (Arterial Line): -- Ventilator: 3L NC Current Drips: insulin Physical Exam: Sleeping but easily arousable Lungs clear anterolaterally Heart regular, not bradycardic Abdomen soft, non-tender No extremity edema Labs/studies: WBC 10.3 Hg 9.7 plt 428 Na 130 --> 134 K 6.2 --> 5.3 Cl 99 CO2 16 BUN 35 Creat 1.41 --> 1.23 AST 268 ALT 174 TB 0.3 Alk phos 119 VBG 7.29/34/48 INR 1.7 BOHB 0.45 lactate 4.1 CK 90 trop 29 U/A with 92 WBCs glucose >1000 rare bacteria +cystine crystals CXR - pacing wire extending into the RA, central pulmonary vascular congestion TTE - normal LV size, hyperdynamic function, RV mildly dilated with normal RV function ASSESSMENT, MANAGEMENT, and DECISION MAKIN73 y/o woman with poorly controlled diabetes presenting with unstable bradycardia in the context ofmetabolic acidosis, MELVA, hyperkalemia, and ongoing tasia-blocking therapy with both diltiazem and metoprolol. The picture is more consistent with hyperosmolar syndrome and a UTI precipitating hypovolemia, pre- renal azotemia with resulting poor clearance of her medications and hyperkalemia which in turn led to symptomatic bradycarcdia. 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 Her HR and BP have improved with time and improvement in her volume status and potassium levels. She can safely transition out of the ICU and have her temporary pacemaker removed. She will need careful attention to her home DM regimen and sequential re-introduction of her calcium channel blockers and beta blockers. The diabetes management team has been consulted and will continue tofollow after transfer. We will also continue her home anticoagulation and ceftriaxone for a UTI. Urine and blood cultures are pending. MICU Quality Checklist Unnecessary medications discontinued? Medications reviewed, all felt appropriate Antibiotics narrowed/discontinued? No, already narrowed Unnecessary lines or urinary catheter removed? NA, no lines Sedation/analgesia reduced if possible? NA, no sedation or analgesia SBT planned or done? NA, not on ventilator Glycemic control reviewed and optimized (140 to 180) No, insulin adjusted Nutrition plan in place? Advancing diet GI prophylaxis indication reviewed and treatment adjusted? Not indicated DVT prophylaxis ordered? On full anticoagulation Mobility/PT/OT plan discussed? Mobilize from bed to chair/sitting Family communication plan in place? Patient updated Serial Labs Serial labs reviewed and felt appropriate IS PATIENT CRITICALLY ILL ? Is there a high potential of sudden, clinically significant, or life threatening deterioration? Yes Is there a need for direct personal assessment and management to treat/prevent multiple vital organfailure/deterioration? No If this patient is not critically ill, I certify the patient requires continued in-patient hospitalization for hyperosmolar syndrome, poorly controlled diabetes, hyperkalemia, renal failure. RUBEN WRIGHT * Deny Pierre MD - 11/05/2023 4:04 AM EDT [facility] TeleICU Initial Assessment Note I established audio/visual communication with the patient's room, reviewed the eDH, and discussed the patient's case with bedside RN. HPI: The patient just arrived to ICU as a direct admit awaiting for orders, labs and imaging. Briefly, a73 y.o. female with a history of persistent atrial fibrillation ([id number], on Xarelto), SVT ,diabetes type 2, hypertension, hyperlipidemia and obesity who was transferred from [facility] for diarrhea and fatigue. In the OSH her vitals were notable for bradycardia with HR in 30's and hypotension with SBP in 70s. Home meds include Metoprolol 100 mg daily and Diltiazem 120 mg daily. Also found to have metabolic derangements including BG >700, K 6.8. Received Calcium Gluconate, IVF at OSH with placement of TVP for bradycardia. Camera: On brief telemetry exam, patient is awake, alert, currently on RA, in no apparent distress. She is comfortably resting in bed, moving all 4 extremities, has bilaterally symmetrical chest rise. Vitals: Reviewed. Temp 37 C, HR 60/min, paced. BP 104/55 mmHg, RR 16/min on RA. Labs: OSH labs Reviewed, notable for BG >700, K 6.8. Most of the admit labs here are still pending. Hb10.9, Na 130, K 6.0, Cl 100, lactate 5.2. VBG with pH 7.25, PCO2 40, PO2 33. Imaging: Imaging studies pending. Assessment/Plan: # Bradycardia / Hypotension: - 12 lead EKG s/o high grade AV block per transfer records. - Now s/p TVP and HR in 60s, paced rhythm. Hypotension now resolved. - Likely from metabolic derangements including hyperkalemia as well as from AV tasia blocking meds (home meds metoprolol and Diltiazem). - Hold all AV tasia blocking agents for time being. - Consider Dopamine or isupril infusion if TVP not capturing. - Correct underlying metabolic issues including DKA and hyperkalemia. - Order TTE and Cardiology consultation. # DKA at OSH: - Still awaiting for admit labs here in . - Once DKA confirmed, start IVF and insulin drip per DKA protocol. - Correct electrolytes aggressively per DKA protocol. ICU Bundle: # FEN: NPO except meds. Start IVF per DKA protocol. # Glucose: Uncontrolled. C/w Q1 hours Accu checks, insulin drip per DKA protocol and BG goal 120-180. # Prophylaxis: Start heparin subcu + SCDs for DVT prophylaxis. No strong indication for stress ulcer prophylaxis. # Lines/Tubes: PIV, TVP # Code status: Full Code # Disposition: Admit to ICU Deny Pierre MD eICU, Critical Care Medicine This is a non-billable note. documented in this encounter H&P Notes * Ivy Peres MD - 11/05/2023 2:16 PM EDT Medicine Admission H&P Patient Name: HOPE YEE Date of : 1950 Age: 73 y.o. Hospital Admit Date: 11/05/2023 Inpatient Attending: Kiko Che MD PCP: KATHLEEN Retana Presenting Diagnosis/Chief Complaint: Diarrhea, malaise History of Present Illness: Hope Yee is a 73 y.o. female with PMH of HTN, atrial fibrillation on rivaroxaban, poorly-controlled T2DM, CKD, chronic indwelling suprapubic catheter, and prior TIA presenting in transfer from [facility] with bradycardia, hypotension, and hyperglycemia. Hope reports severe diarrhea that started about three weeks ago. It started when her Trulicity was on backorder, so she was started on an oral antihyperglycemic (unclear from chart review which this is; she is listed as filling Trulicity, Jardiance, and metformin). She has has decreased PO intake over this time as well. Then yesterday, she was making dinner for herself and her parrot, Echo, when she started to feel out of it. She also had some nausea and chest pain over this time, promptingher to call EMS. At [facility], she was found to be bradycardic in the 30s-40s with hypotension (91/37). A transvenous pacing wire was placed. Glucose was in the 700s with low Na, elevated K, and non-anion gap acidosis. AST 120, ALT 77. CXR was notable for pulmonary vascular congestion. She was given calcium gluconate and insulin, as well as 2L IV fluids. She received 2g CTX for a possible UTI and transferred to [facility] for further management of her bradycardia. Upon arrival to the MICU, her HR was in the 80s. Home metoprolol and diltiazem were held. Glucose was in the 500s, so she was started on an insulin drip, which has brought sugars back down to the 100s. Insulin gtt stopped the afternoon of 11/04. Labs were notable for Na in the 130s, K 6.2->5.3, bicarb 116, Cr 1.4 -> 1.13. She has been eating PO meals. On my interview today, Hope says she is feeling much better. No longer having diarrhea, now feeling a bit constipated. No nausea, vomiting, or abdominal pain. She remains in atrial fibrillation with HR in the 90s-100s. At home, Hope says that her blood sugars range anywhere from 100-600. Last A1C was 13.9. She has had 8-9 readings this month as high as 600. She says that she misses doses of her diabetes medications about twice per week. She does check her sugars regularly. Diabetes management team has been consulted while inpatient. She lives alone in [facility]. She has VNA come on Mondays and Fridays for her leg wounds and suprapubic catheter, which was last changed earlier this month. She thinks she did have a fever this week; unclear if she checked her temperature. No hematuria or other color changes to her urine. She thinks that the volume has been her usual amount. Hope quit smoking and drinking over 35 years ago. Past Medical History: Past Medical History: Diagnosis Date Atrial fibrillation Diabetes mellitus GERD (gastroesophageal reflux disease) Hypertension Melanoma in situ s/p removal Rheumatoid arthritis SVT (supraventricular tachycardia) Patient Active Problem List Diagnosis Code Malignant melanoma C43.9 Personal history of malignant melanoma Z85.820 Rosacea L71.9 Basal cell carcinoma of back C44.519 History of malignant melanoma Z85.820 History of basal cell carcinoma Z85.828 Nevus D22.9 Gait instability R26.81 Seronegative arthritis M13.80 Osteoarthrosis, unspecified whether generalized or localized, pelvic region and thigh M16.10 Osteoarthrosis, unspecified whether generalized or localized, lower leg [id number] Osteoarthrosis, unspecified whether generalized or localized, ankle and foot M19.079 SVT (supraventricular tachycardia) I47.10 Diabetes mellitus E11.9 Atrial fibrillation I48.91 Syncope R55 Symptomatic bradycardia R00.1 Morbid obesity E66.01 Seronegative rheumatoid arthritis M06.00 Heart murmur R01.1 Gastroesophageal reflux K21.9 Pseudophakia, both eyes Z96.1 Diabetic peripheral neuropathy E11.42 Hypertension, essential, benign I10 Hyperlipidemia E78.5 Diabetic ulcer of toe of right foot associated with type 2 diabetes mellitus, with fat layer exposed E11.621, L97.512 DKA (diabetic ketoacidosis) E11.10 Past Surgical History: Past Surgical History: Procedure Laterality Date SECTION JOINT REPLACEMENT Social History: Social History Socioeconomic History Marital status: Spouse name: Not on file Number of children: Not on file Years of education: Not on file Highest education level: Not on file Occupational History Occupation: Retired Tobacco Use Smoking status: Former Types: Cigarettes Quit date: 06/22/1979 Years since quittin.4 Smokeless tobacco: Never Tobacco comments: per phone call 01/02/2011 Vaping Use Vaping Use: Never used Substance and Sexual Activity Alcohol use: Yes Comment: 1 drink every 3-4 months Drug use: Yes Types: Marijuana Comment: Rare use when Arthritis acts up Sexual activity: Not on file Comment: Deferred Other Topics Concern Not on file Social History Narrative Lives by herself.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 Social Determinants of Health Financial Resource Strain: Not on file Food Insecurity: No Food Insecurity (11/05/2023) Hunger Vital Sign Worried About Running Out of Food in the Last Year: Never true Ran Out of Food in the Last Year: Never true Transportation Needs: No Transportation Needs (11/05/2023) PRAPARE - Transportation Lack of Transportation (Medical): No Lack of Transportation (Non-Medical): No Physical Activity: Not on file Intimate Partner Violence: Not on file Housing Stability: Low Risk (11/05/2023) Housing Stability Vital Sign Unable to Pay for Housing in the Last Year: No Number of Places Lived in the Last Year: 1 Unstable Housing in the Last Year: No Family History: Family History Problem Relation Age of Onset Diabetes Mother Heart Disease Mother Multiple Sclerosis Sister Allergies: Allergies Allergen Reactions Trazodone hallucinations Medications: Medications Prior to Admission Medication Sig Dispense Refill Last Dose atorvastatin (LIPITOR) 20 mg Tablet Take 1 tablet by mouth daily. 90 tablet 3 DILTiazem (CARDIZEM CD) 180 mg Capsule, Sust. Release 24 hr Take 1 capsule by mouth daily. 30 capsule 3 lisinopril (PRINIVIL;ZESTRIL) 10 mg Tablet Take 1 tablet by mouth daily. 90 tablet 3 metoprolol succinate (TOPROL-XL) 100 mg Tablet Sustained Release 24 hr Take 100 mg by mouth 2 timesdaily. Indications: Ventricular Rate Control in Atrial Fibrillation rivaroxaban 20 mg Tablet Take 1 tablet by mouth every evening. With meals. (Please run Rx for pricing) 90 tablet 3 insulin glargine (LANTUS SOLOSTAR) Insulin Pen Inject [...] a row, subtract 2 units of insulin fromthe next LANTUS dose. This lower dose becomes [...] a row, subtract 2 units of insulin fromthe next LANTUS dose. This lower dose becomes your new dose, cont. to decrease as needed.) 3 mL 0 insulin aspart (NOVOLOG) Insulin Pen Check blood glucose before each meal. Inject 8 units of novolog by pen for breakfast, 8 units for lunch and 8 units for dinner. 3 mL 0 MAGNESIUM GLUCONATE ORAL Take 500 mg by mouth 3 times daily. omeprazole (PRILOSEC) 20 mg Capsule, Delayed Release(E.C.) Take 20 mg by mouth daily. metFORMIN (GLUCOPHAGE) 500 mg tablet Take 1,000 mg by mouth 2 times daily (with meals). 1000 mg = 2tablets PHYSICAL EXAM: Last value Range last 24 hrs Temperature Temp: 36.3 ??C (97.3 ??F) Temp: [36.3 ??C (97.3 ??F)-37 ??C (98.6 ??F)] Heart Rate Heart Rate: 90 Heart Rate: [71-92] Blood Pressure BP: 123/71 BP: (88-128)/(47-94) Respiratory Rate Resp: 19 Resp: [13-21] SpO2 SpO2: 96 % SpO2: [82 %-97 %] I/O last 3 completed shifts: In: 1002 [I.V.:1002] Out: 375 [Urine:375] General: Awake, alert, sitting up in bed in no apparent distress HEENT: atraumatic and normocephalic; anicteric sclera, oropharynx clear with moist mucous membranes Cardiovascular: Regular rate, irregularly irregular rhythm, normal S1 and S2, no murmurs, gallops, or rubs; 2+ radial pulse Respiratory: Lungs clear to auscultation bilaterally with good air movement; no wheezes, crackles, or rhonchi, normal work of breathing on NC GI: Abdomen soft, non-tender, and non-distended without rebound or guarding; normoactive bowel sounds Extremities: Legs wrapped in compression bandages; sensation intact in distal feet; chronic wounds present under bandages Skin: Warm and dry; no rashes, ecchymosis, or lesions Neuro: A&0x3, speech grossly intact, moving all extremities against gravity LABS: Recent Labs 11/05/23 0335 WBC 10.3* HGB 9.7* HCT 32.4* PLATELET 428* Recent Labs 11/05/23 1224 11/05/23 0800 11/05/23 0335 NA 137 134* 130* K 4.8 5.3* 6.2* CL 106 103 99 CO2 21* 18* 16* BUN 27* 30* 35* CREATININE 1.13 1.23* 1.41* Recent Labs 11/05/23 1224 11/05/23 0800 11/05/23 0335 CALCIUM 8.3* 8.3* 8.6 MAGNESIUM -- -- 0.62* PHOS -- -- 4.0 Recent Labs 11/05/23 0335 PT 18.9* PTT 37 Recent Labs 11/05/23 0335 INR 1.7 Recent Labs 11/05/23 0335 AST 268* ALT 174* ALKPHOS 119* BILITOT 0.3 BILIDIR 0.2 Recent Labs 11/05/23 0335 CK 90 Recent Labs 11/05/23 0600 HA1C 13.1* Lab Results Component Value Date CHLPL 118 01/08/2018 HDL 51 01/08/2018 CHOLHDL 2.3 01/08/2018 TRIG 51 01/08/2018 LDLCHOL 57 01/08/2018 LDLDIRECT 62 01/08/2018 Imaging/Diagnostics: CXR 11/15/23 Low lung volumes with central pulmonary vascular congestion. No focal consolidation. No pneumothorax or pleural effusion. Cardiac mediastinal silhouette is within normal limits. Multiple mildly displaced age-indeterminate left rib fractures. TTE 11/05/23 Interpretation Summary Normal left ventricular size with hyperdynamic systolic function. Ejection fraction is visually 70%. There are no regional wall motion abnormalities. The right ventricle is mildly dilated with normal systolic function. There is no significant valvular disease. Compared to prior echo from 01/08/18, there are no major changes. ASSESSMENT and PLAN: Hope Yee is a 73 y.o. female with PMH of HTN, atrial fibrillation on rivaroxaban, poorly-controlled T2DM, CKD, chronic indwelling suprapubic catheter, and prior TIA presenting in transfer from [facility] with bradycardia, hypotension, and hyperglycemia. It seems that her bradycardia is the result of accumulation of beta blockade and calcium channel blockade in the setting of a prerenal MELVA. She has been having several days of diarrhea, likely a sideeffect of her outpatient diabetes medications. Her blood sugars have been very elevated at home, seemingly in the 400s-600s quite frequently, which would have led to an osmotic diuresis. All of this would have contributed to a prerenal MELVA and associated hyperkalemia. Reassuringly, her HR has been in the 80s-100s since arrival, and her MELVA and electrolyte derangements are improving. Seems most likely that her hyponatremia was pseudohyponatremia in setting of hyperglycemia. We will slowly re-introduce beta blockade as her kidney function is improving. Continuing home rivaroxaban for AC for herAF. Given that her anion gap and BOHB were not elevated, it is unlikely that her presentation was DKA. More likely HHS or just chronically subobtimally controlled T2DM. She will need close blood sugar monitoring and titration of her home diabetes regimen. Appreciate Diabetes Management team's assistance. Her insulin gtt was stopped this afternoon due to persistent blood glucose in the low 100s. We will continue meal-time insulin and start SSI for dose finding, with a plan to restart basal insulin tomorrow. She will benefit from a simplified outpatient regimen and ongoing education. Hope is being treated with CTX for a possible UTI. It is unclear whether she was having symptoms,but she did endorse possible fevers. Will plan for 5-day course of abx. #Bradycardia - resolved #Atrial fibrillation - HR in the 30s-40s at [facility], now in the 90s-100s - Telemetry - Temp pacing wire removed 11/04 - Holding home diltiazem - Restart metoprolol tartrate 12.5 mg q6h - Rivaroxaban 20 mg nightly #MELVA - improving, likely prerenal #Hyperkalemia #Pseudohyponatremia - Cr 1.43 on admission, now improving - Daily BMP - Lokelma daily - Holding off on additional IV fluids given pulmonary vascular congestion #Hyperglycemia #Probable HHS #Poorly-controlled T2DM - Glucose in the 500s-700s at presentation - Last A1C 13.1 - Insulin gtt stopped afternoon of 11/04 - Diabetes management following; appreciate the assistance - Holding home Trulicity, Jardiance, and metformin - 1:10 mealtime insulin - Sensitive SSI - Will plan to start basal insulin tomorrow after 24 hours of dose finding - She takes 30 U lantus nightly - It seems that she has been missing multiple doses of her medications per week - Daily BMP, mag, phos #UTI - Ceftriaxone 2g daily for 5 days #Housekeeping: - DVT PPx: Home rivaroxaban - GI PPx: Not indicated - Diet: Carb Control diet 60/60/75 CHO counting level 2 - Level of care: Med/ surg - Vitals: q4h Discussed Advanced Directives and Code Status. The patient wishes to be Do NOT Attempt CPR - Inpatient, OK for trial of intubation. Ivy Peres MD Internal Medicine PGY-2 Pager: #[phone] 11/05/23 Associated attestation - Joaquim Georges MD - 11/05/2023 4:19 PM EDT Attending Attestation and Certification Please see Ivy Peres MD's note for details of the patient history of presentation and data. I have discussed, reviewed and agree with the documented History, Physical findings, Assessmentand Plan of care. I have examined the patient myself and personally reviewed all studies. In addition, I certify thatI am a [facility] credentialed attending provider with admitting privileges and that the patient meets or has met medical necessity to require an inpatient IPI level of care meeting a minimum of two midnights or is on the CMS inpatient only procedure list (status C) due to: monitoring of fluid status given an inability to regulate fluid balance and the need for administration or restriction of fluids, acute kidney injury necessitating close monitoring of fluid balance such as intravenous fluids and/ortitration of medication to achieve optimal effect and minimize the chance of immediate or severe side effects, and HHS Insulin drip paused due to drop to normoglycemia, will monitor trend on meal- associated insulin + sliding scale for now. Interestingly patient seems well- versed in her home insulin regimen, however acknowledges missing at least 1-2 doses of basal insulin weekly and also reports blood glucoses in the 600s on average. Will need careful adjustment of insulin regimen here and education. Presentation is largely due to volume depletion related to weeks of severe diarrhea, resulting in prerenal MELVA (now resolved) associated with hyperkalemia (also resolved), which potentiated activity of home beta alicia leading to high grade AV block. Had temp pacing wire placed prior to transfer, though ultimately this was not able to be positioned in the ventricle and she never required pacing.Has been stable in Afib with rates 70s-90s here. Given resolved bradycardia and MELVA/hyperkalemia, will cautiously reintroduce beta blockade with tartrate at reduced dose. Joaquim Georges MD [facility] Medicine 11/05/2023 * Abran Reyna APRN - 11/05/2023 3:33 AM EDT Images from the original note were not included. Critical Care Admission Note Hope Yee is a 73 y.o. female with a PMH significant for Obesity (BMI30.7), HTN, Afib (on Xeralto), SVT, bradycardia, DM type 2, CKD, chronic indwelling Barber catheter, TIA, who presented to [facility] with bradycardia, hypotension and hyperglycemia now transferring to the ICU with Bradycardia and presumed DKA vs HHS. HPI:Hope Yee is a 73-year-old female with the above past medical history who presented to the [facility] ED via EMS with a few days of weakness, diarrhea, and dry heaving. As per patient and outside hospital records she has not been feeling well she was noted to have a cough, diarrhea, dry heaving late last night and also developed some mild chest pain ultimately called EMS. When EMS arrived patient noted to be bradycardic in the 30s and hypotensive blood glucose was too high to be read. Patient was given 0.5 mg of atropine without resolution of bradycardia. On arrival to the ED patient noted to be hypothermic with a temperature of 35.3 heart rate 44, respiratory rate 18 O2 sat of 95% on room air blood pressure 91/37. Initial labs were significant for WBC 11.5, H&H 9.7/33.8, sodium 129, potassium 6.8, CO2 18, anion gap 14 creatinine 2, BUN 38, blood glucose 696, AST 130, ALT 77 and troponin was normal. Patient received dose of calcium gluconate and 10 units of IV insulin 3 units of albuterol nebulizers for her hyperkalemia. A transvenous pacer was placed via Cordis but team was unable to advance past the medial aspect of the tricuspid valve. A follow-up chest x-ray revealed the transvenous pacemaker tip to lie within the right atrium vs vent ricle, also revealed diffuse interstitial edema/venous congestion. Patient also received 2 g of IV ceftriaxone for suspected UTI. [facility] cardiology was consulted who reached out to critical care services. While in the ED patient received a total of 2 L of IV crystalloid fluid boluses but was not started on a insulin infusion. No significant events in route. On arrival to the ICU patient is hemodynamically stable, with a heart rate in the 60s, transvenous pacer wire in place via Cordis. ROS: .Review of Systems - History obtained from chart review and the patient General ROS: positive for - fatigue and malaise Psychological ROS: negative Ophthalmic ROS: negative ENT ROS: positive for - sore throat Allergy and Immunology ROS: negative Hematological and Lymphatic ROS: negative Endocrine ROS: negative Breast ROS: negative Respiratory ROS: positive for - cough Cardiovascular ROS: positive for - chest pain Gastrointestinal ROS: positive for - diarrhea and dry heaving Genito-Urinary ROS: positive for - chronic indwelling barber Musculoskeletal ROS: positive for - muscle pain Neurological ROS: no TIA or stroke symptoms Dermatological ROS: negative Last value Range last 24 hrs Temperature Temp: 37 ??C (98.6 ??F) Temp: [37 ??C (98.6 ??F)] Heart Rate Heart Rate: 74 Heart Rate: [71-75] Blood Pressure BP: 104/70 BP: (88-104)/(47-73) Respiratory Rate Resp: 16 Resp: [16-21] SpO2 SpO2: 97 % SpO2: [82 %-97 %] Art BP BP (Arterial Line): -- Past Medical History: Diagnosis Date Atrial fibrillation Diabetes mellitus GERD (gastroesophageal reflux disease) Hypertension Melanoma in situ s/p removal Rheumatoid arthritis SVT (supraventricular tachycardia) Past Surgical History: Procedure Laterality Date SECTION JOINT REPLACEMENT Family History Problem Relation Age of Onset Diabetes Mother Heart Disease Mother Multiple Sclerosis Sister Social History: Patient lives alone Ventilator Settings: Room air Physical Exam: General: No acute distress HEENT: Normocephalic, trachea midline, no JVD noted Neuro: Awake and alert oriented x 3, PERRL, nonfocal Pulmonary: Chest Wall symmetrical, clear bilateral breath sounds Cardiovascular: Irregular rate and rhythm, no murmur/gallop/rub appreciated Abdomen: Soft, nontender, obese : Chronic indwelling Barebr present, draining yellow urine Extremities: 2+ edema Skin: Intact Labs: Last 3 wbc, hgb, hct plt Recent Labs 11/05/23 0335 WBC 10.3* HGB 9.7* HCT 32.4* PLATELET 428* Last 3 Lytes Recent Labs 11/05/23 033 NA 130* K 6.2* CL 99 CO2 16* BUN 35* CREATININE 1.41* Last 3 LFTs Recent Labs 11/05/23 033 AST 268* ALT 174* ALKPHOS 119* BILITOT 0.3 BILIDIR 0.2 Last Ca, Mg, Phos Recent Labs 11/05/23 0335 CALCIUM 8.6 PHOS 4.0 MAGNESIUM 0.62* Last 3 Coags Recent Labs 11/05/23 0335 PT 18.9* INR 1.7 PTT 37 Last 3 ProBNP, Trop, CK Recent Labs 11/05/23 033 CK 90 EKG: Twelve-lead EKG negative for ACS-atrial fibrillation Results for orders placed or performed during the hospital encounter of 11/05/23 XR Chest One View (Exam End: 11/05/2023 3:58 AM) Result Value WORKSTATION ID [id number] Impression Right IJ central venous catheter with tip projecting over the right atrium. I have personally reviewed the image(s) and the resident's interpretation and agree with the findings, Emeka Wolfe MD at 11/05/2023 4:37 AM Thank you for letting us participate in the care of this patient. If you are a health care provider and have any questions regarding this report, please contact the number below. For patients who have questions please contact the health adult day care worker that requested your imaging first. Assessment: Hope Yee is a 73 y.o. female with a significant history for HTN, Afib (on Xeralto), SVT, bradycardia, DM type 2, CKD, chronic indwelling Barber, TIA, who presented to [facility] with bradycardia, hypotension and hyperglycemia now transferring to the ICU with Bradycardia and presumed DKA. Patient bradycardia seem to be resolved most likely was in the setting of metabolic derangementsnotably hyperkalemia, MELVA and home beta and calcium channel blockers. Although her blood glucose isquite elevated her BOH be is barely high and her anion gap is normal still waiting for UA but this may be more consistent with HHS rather than DKA although her lactate is also elevated.will start patient on DKA protocol and continue with IV fluid resuscitation. Patient had leukocytosis and reportedly a UA that was indicative of a possible UTI, will follow culture data, we will continue with antibiotics for now but is unclear if patient has an infection. Had goals of care conversation with the patient would be amenable for short-term intubation, however patient requested to be DNR would be okay with cardioversion. Plan: Neuro: History of TIA Tylenol for pain and fever Pulm: ? Pulmonary edema Outside hospital chest x-ray reveals pulmonary venous congestion and diffuse additional edema Repeat chest x-ray Titrate oxygen to SpO2 greater than 92% VBG CV: Atrial fibrillation/SVT/bradycardia Repeat twelve-lead EKG Transvenous pacer placed by outside hospital team Cardiac enzymes Formal TTE Cardiology initially consulted by outside hospital-felt bradycardia and block is secondary to disturbances Hold home beta-blockers for now Hold home calcium channel blockers for now GI: Diarrhea/transaminitis Advance diet as tolerated LFTs Renal/FEK: Acute on chronic renal failure/hyperkalemia/lactic acidosis/DKA/chronic indwelling Barber Continue with IV fluids resuscitation Serial BMPs UA Correct sodium 6 to 8 mmol per 24 hours Lokelma for hyperkalemia Hematology: Systemic anticoagulation for atrial fibrillation Continue home Xarelto adjust renally as needed Coags Transfuse for hemoglobin less than 7 ID: possible UTI Continue Ceftriaxone Collect blood cultures Collect sputum sample Respiratory viral panel UA Endocrine: DKA DKA protocol Insulin infusion A1c Diabetes management team TSH in outside hospital 1.78 Other prophylaxis: Xarelto for DVT prophylaxis No GI prophylaxis indicated HOB > 30 Chlorhexidine mouth care Mepliex to sacrum PT/OT Patient Lines/Drains/Airways Status Active Tubes/Lines/Drains Name Placement date Placement time Site Days PIV 11/04/23 2200 18 gauge basilic vein (medial side of arm), left 11/04/23 2200 -- 1 PIV 11/05/23 0000 20 gauge median cubital vein (antecubital fossa), left 11/05/23 0000 -- less than1 Suprapubic Catheter 01/08/18 0030 01/08/18 0030 -- 2126 Consults: Diabetes management team Decision Making: Self Code Status: DNR/okay with short-term intubation IS PATIENT CRITICALLY ILL ? Is there a high potential of sudden, clinically significant, or life threatening deterioration? Yes Is there a need for direct personal assessment and management to treat/prevent multiple vital organfailure/deterioration? Yes PATIENT IS CRITICALLY ILL WITH THESE DIAGNOSES BEING MANAGED BY [facility] TEAM: Acidosis Metabolic Lactic Arrhythmia Atrial fibrillation Chronic and Bradycardia Hyperkalemia Hyponatremia Hypotension Unspecified Renal Disease/Failure Unspecified I personally performed 50 of aggregate critical care time exclusive of procedures and teaching [id number]. This includes time spent during direct patient evaluation and reassessment, interpreting diagnostic tests, directing life and/or organ supporting interventions and documentation on the unit. ABRAN REYNA APRN November 05, 2023 Critical Care [place] Team (pager [phone]) Dr. Che is the attending of record for this admission documented in this encounter Procedure Notes * Vincenzo Plaza MD - 11/12/2023 10:17 AM EDT Urology Consult Note Urology Procedure Note Hope Yee is a 73 y.o. female we are asked to assist with suprapubic tube exchange. The suprapubic tube and urethral catheter were clamped. The abdomen was prepped and draped to include the catheter. ~100cc of sterile saline were instilled through the SPT into the bladder and the catheter was removed from the patient. An 18Fr barber catheter was then inserted through the SPT tract with immediate efflux of fibrinous urine. 10cc of sterile water were instilled through the balloon port and the catheter was seated in the bladder. The SPT was connected to the bag and hazy urine was drained. The urethral catheter was unclamped. She tolerated the tube exchange without complications. Findings: - SPT placed with ease Recommendations: - Consider removing urethral catheter to see if SPT manages bladder decompression - Continue SPT to gravity, next planned change in 1 month (if she discharges, she will need to have[facility]NA reordered, who previously managed this for her) - follow up with Urologist at [facility] for further SPT care Urology will sign off at this time, please reach out further with additional concerns as needed. Vincenzo Plaza MD 11/12/2023 documented in this encounter Miscellaneous Notes * Care Management - Chanell Acosta - 11/23/2023 12:46 PM EDTSummary: Discharge ride A medicaid discharge ride was scheduled through [facility] ([phone]) by [employer] for 2:00pm at entrance #2. * Care Management Discharge - Jolie Woods RN - 11/23/2023 11:28 AM EDT CARE MANAGEMENT FINAL DISCHARGE NOTE Chart reviewed, care reviewed with primary team and at interdisciplinary rounds. Patient is medically ready for discharge to her daughter , Pelon' home ( [address] [place], [place]). Needs for Transition of Care: home health Plan for discharge is: Home w/ Services Outpatient Agency/Support Group Needs: Homecare agency Home Health Services: Occupational Therapy, Registered Nurse, Physical Therapy Agency Referrals & Follow-up Care: I reviewed a list of Home Health Agencies/DME vendors with patients daughter, which serve the preferred geographic area. If patient chooses one of our affiliates, I will provide our affiliate letter.Education was provided about the right to choose where referrals are placed. Patient requests referral to [facility] [address] [place] [address] PHONE: [phone] FAX: [phone]. Expected date of discharge: 11/23/2023. Referral routed to the [employer] for matching with agency/vendor and to provide any required information. Transportation: health plan transportation MacrinaANNALEE, has set up Medicaid ride to transport pt to her daughters' home ( see address above) at 1400 today on 11/23/2023. KRIS TRUJILLO called and spoke to Beatriz to update on planned DC time, Wheelchair van/Ambulance? No Functional status prior to admission: Assistive Equipment Home Environment: Others in the home: pet(s). Current Living Arrangements: home/apartment/condo. Accessibility Concerns:Pt lives in 3rd floor apartment with elevator access and no NIKI. Current Functional Ability: FWW/supervision DME used at home: (Pt uses a walker outside, a cane inside, and has shower bars) DME Needed at Discharge: n/a Patient is insured through: Primary Insurance: [facility] Payor: [facility] / Plan: [facility] MEDICARE / Product Type: *No Product type* / Secondary Insurance: MEDICAID [place] Prescription Coverage: Yes This plan was formulated with input from patient, MD team. All are in agreement with plan. I have reviewed the Important Message from Medicare (IMM) with patient. Patient verbalizes understanding of right to appeal this discharge if feeling not medically ready. Offered a copy of this letter. Jolie Woods RN CM, BSN, [facility]- Ext [phone] * Care Management - Chanell Acosta - 11/23/2023 11:10 AM EDTSummary: Advance Directive Patient completed Advance Directive with [employer]. Sunil Boyd (son) named as primary agent. Beatriz Boyd (daughter) named as secondary agent. * Plan of Care - Torsten Mendenhall RN - 11/22/2023 11:05 AM EDT OUTCOME EVALUATION NOTE: OUTCOME SUMMARY: Pt. Is resting comfortably in chair. Vss. BS monitored per order. Wound dressing done, wound healing. Pt . Is encouraged to ask questions and verbalizes understanding of POC PLAN MOVING FORWARD: Placement INDIVIDUALIZED FALL PREVENTION INTERVENTIONS: Patient-specific fall risk factors per assessment: [current deficits]: 1 assist with walker and catheter Assistance [level of assistance required for transfers and ambulation]: 1 assist Supervision [direct monitoring required during toileting and ADLs]: 1 assist Surveillance [continuous indirect monitoring]: masimo Patient-specific fall prevention interventions for sensory deficits provided, if applicable: [X] No CARE PLAN GOAL OUTCOME EVALUATION: ongoing Problem: Adult Inpatient Plan of Care Goal: Plan of Care Review Outcome: Ongoing (Interventions Implemented as Appropriate) Flowsheets (Taken 11/13/2023444 by Marry Oquendo, RN) Plan of Care Reviewed With: patient Goal: Patient-Specific Goal (Individualized) Outcome: Ongoing (Interventions Implemented as Appropriate) Goal: Absence of Hospital-Acquired Illness or Injury Outcome: Ongoing (Interventions Implemented as Appropriate) Intervention: Identify and Manage Fall Risk Flowsheets (Taken 11/22/2023 110) Safety Promotion/Fall Prevention: assistive device/personal items within reach fall prevention program maintained Intervention: Prevent and Manage VTE (Venous Thromboembolism) Risk Flowsheets (Taken 11/20/20231999 by Keerthi Sinclair, RN) VTE Prevention/Management: compression stockings on Intervention: Prevent Infection Flowsheets (Taken 11/21/20231944 by Andrade Ramirez, RN) Infection Prevention: hand hygiene promoted single patient room provided Goal: Optimal Comfort and Wellbeing Outcome: Ongoing (Interventions Implemented as Appropriate) Goal: Readiness for Transition of Care Outcome: Ongoing (Interventions Implemented as Appropriate) Intervention: Mutually Develop Transition Plan Flowsheets Taken 11/22/2023 110 by Torsten Mendenhall RN Readmission Within the Last 30 Days: no previous admission in last 30 days Taken 11/05/2023 1328 by Elodia Dahl MSW Transportation Anticipated: health plan transportation Problem: Fall Injury Risk Goal: Absence of Fall and Fall-Related Injury Outcome: Ongoing (Interventions Implemented as Appropriate) Intervention: Identify and Manage Contributors Flowsheets (Taken 11/22/2023 1103) Medication Review/Management: medications reviewed Self-Care Promotion: independence encouraged Intervention: Promote Injury-Free Environment Flowsheets (Taken 11/22/2023 1103) Safety Promotion/Fall Prevention: assistive device/personal items within reach fall prevention program maintained Problem: Diabetes Comorbidity Goal: Blood Glucose Level Within Targeted Range Outcome: Ongoing (Interventions Implemented as Appropriate) Intervention: Monitor and Manage Glycemia Flowsheets (Taken 11/22/2023 110) Glycemic Management: blood glucose monitored Problem: Hypertension Comorbidity Goal: Blood Pressure in Desired Range Outcome: Ongoing (Interventions Implemented as Appropriate) Intervention: Maintain Blood Pressure Management Flowsheets (Taken 11/22/2023 1103) Medication Review/Management: medications reviewed * Plan of Care - Artem Patel RN - 11/20/2023 5:58 PM EDT A&Ox4, cooperative w/ cares. RA. Suprapubic catheter intact w/ adequate output. Fingersticks ACHS w/ sliding scale given per orders. New order for blood sugar check @0200. OOB x1 assist w/ RW, PT/OT following. Call puckett within reach, safety maintained. Problem: Adult Inpatient Plan of Care Goal: Plan of Care Review Outcome: Ongoing (Interventions Implemented as Appropriate) Goal: Patient-Specific Goal (Individualized) Outcome: Ongoing (Interventions Implemented as Appropriate) Goal: Absence of Hospital-Acquired Illness or Injury Outcome: Ongoing (Interventions Implemented as Appropriate) Goal: Optimal Comfort and Wellbeing Outcome: Ongoing (Interventions Implemented as Appropriate) Goal: Readiness for Transition of Care Outcome: Ongoing (Interventions Implemented as Appropriate) Problem: Fall Injury Risk Goal: Absence of Fall and Fall-Related Injury Outcome: Ongoing (Interventions Implemented as Appropriate) Problem: Diabetes Comorbidity Goal: Blood Glucose Level Within Targeted Range Outcome: Ongoing (Interventions Implemented as Appropriate) Problem: Hypertension Comorbidity Goal: Blood Pressure in Desired Range Outcome: Ongoing (Interventions Implemented as Appropriate) * Plan of Care - Doris Miranda RN - 11/20/2023 3:58 AM EDT OUTCOME EVALUATION NOTE: OUTCOME SUMMARY: Hope reported lower back pain, was medicated with PRN Tylenol and was repositioned in bed. Had a formed BM this shift. Suprapubic catheter intact, UOP adequate. NO acute events overnight. Repositioned q2hrs. PLAN MOVING FORWARD: FSBG 4x/day. Wound care, RLE dressing change q3days due on 11/22/23. Discharge planning. INDIVIDUALIZED FALL PREVENTION INTERVENTIONS: Patient-specific fall risk factors per assessment: [current deficits]: needs assistance getting OOB, tethering lines Assistance [level of assistance required for transfers and ambulation]: SBA with FWW Supervision [direct monitoring required during toileting and ADLs]: arms reach Surveillance [continuous indirect monitoring]: purposeful rounding, call puckett within reach Patient-specific fall prevention interventions for sensory deficits provided, if applicable: YES. Light adjusted for tasks/safety CPG GOAL OUTCOME EVALUATION: Problem: Adult Inpatient Plan of Care Goal: Plan of Care Review Outcome: Ongoing (Interventions Implemented as Appropriate) Goal: Patient-Specific Goal (Individualized) Outcome: Ongoing (Interventions Implemented as Appropriate) Goal: Absence of Hospital-Acquired Illness or Injury Outcome: Ongoing (Interventions Implemented as Appropriate) Goal: Optimal Comfort and Wellbeing Outcome: Ongoing (Interventions Implemented as Appropriate) Goal: Readiness for Transition of Care Outcome: Ongoing (Interventions Implemented as Appropriate) Problem: Fall Injury Risk Goal: Absence of Fall and Fall-Related Injury Outcome: Ongoing (Interventions Implemented as Appropriate) Problem: Diabetes Comorbidity Goal: Blood Glucose Level Within Targeted Range Outcome: Ongoing (Interventions Implemented as Appropriate) Problem: Hypertension Comorbidity Goal: Blood Pressure in Desired Range Outcome: Ongoing (Interventions Implemented as Appropriate) * Plan of Care - Artem Patel RN - 11/19/2023 6:15 PM EDT A&Ox4, cooperative w/ cares. VSS. OOB x1 assist w/ RW. +BM in bathroom this shift. Suprapubic catheter intact. Fingersticks ACHS w/ sliding scale given per orders. Dressings changed. Call puckett within reach, safety maintained. Problem: Adult Inpatient Plan of Care Goal: Plan of Care Review Outcome: Ongoing (Interventions Implemented as Appropriate) Goal: Patient-Specific Goal (Individualized) Outcome: Ongoing (Interventions Implemented as Appropriate) Goal: Absence of Hospital-Acquired Illness or Injury Outcome: Ongoing (Interventions Implemented as Appropriate) Goal: Optimal Comfort and Wellbeing Outcome: Ongoing (Interventions Implemented as Appropriate) Goal: Readiness for Transition of Care Outcome: Ongoing (Interventions Implemented as Appropriate) Problem: Fall Injury Risk Goal: Absence of Fall and Fall-Related Injury Outcome: Ongoing (Interventions Implemented as Appropriate) Problem: Diabetes Comorbidity Goal: Blood Glucose Level Within Targeted Range Outcome: Ongoing (Interventions Implemented as Appropriate) Problem: Hypertension Comorbidity Goal: Blood Pressure in Desired Range Outcome: Ongoing (Interventions Implemented as Appropriate) * Plan of Care - Erma Vargas RN - 11/19/2023 3:01 AM EDT OUTCOME EVALUATION NOTE: OUTCOME SUMMARY: Pt A&Ox4 throughout shift. Pt tolerating cc diet w/out complaints of N/V. Pts PIV saline locked, tolerating well. Pt did not ambulate during shift. Pt w/Coccyx Wound and LE ulcer, tolerating w/out complaints of pain. Pt voiding QS via suprapubic catheter, no c/o pain. Pt has moved bowels over this shift. Pt able to rest between care. PLAN MOVING FORWARD: Monitor Pain, Monitor I&O, Encourage Ambulation, Monitor PO tolerance, Maintain Safety, Discharge Planning INDIVIDUALIZED FALL PREVENTION INTERVENTIONS: Patient-specific fall risk factors per assessment: [current deficits]: Needs assistance getting outof bed or chair, Pain with movement/ambulation. Assistance [level of assistance required for transfers and ambulation]: Walker, on-skid shoes/slippers, 1 person assist Supervision [direct monitoring required during toileting and ADLs]: Hands on Surveillance [continuous indirect monitoring]: Purposeful rounding, Call puckett in reach, Direct observation Patient-specific fall prevention interventions for sensory deficits provided, if applicable: [X] Yes Light adjusted for task/safety CPG GOAL OUTCOME EVALUATION: Problem: Adult Inpatient Plan of Care Goal: Plan of Care Review Outcome: Ongoing (Interventions Implemented as Appropriate) Goal: Patient-Specific Goal (Individualized) Outcome: Ongoing (Interventions Implemented as Appropriate) Goal: Absence of Hospital-Acquired Illness or Injury Outcome: Ongoing (Interventions Implemented as Appropriate) Goal: Optimal Comfort and Wellbeing Outcome: Ongoing (Interventions Implemented as Appropriate) Goal: Readiness for Transition of Care Outcome: Ongoing (Interventions Implemented as Appropriate) Problem: Fall Injury Risk Goal: Absence of Fall and Fall-Related Injury Outcome: Ongoing (Interventions Implemented as Appropriate) Problem: Diabetes Comorbidity Goal: Blood Glucose Level Within Targeted Range Outcome: Ongoing (Interventions Implemented as Appropriate) Problem: Hypertension Comorbidity Goal: Blood Pressure in Desired Range Outcome: Ongoing (Interventions Implemented as Appropriate) * Plan of Care - Jourdan Domingo RN - 11/18/2023 11:41 AM EDT OUTCOME EVALUATION NOTE: OUTCOME SUMMARY: I assumed care at 0700. Patient is alert and orient. Currently on room air. The patient has a suprapubic cath present. The patient is a blood sugar check. She is a one person assist up. Has a stage two pressure injury on sacrum. On my shift I monitor vitals. Monitor inns and outs. Monitor blood sugar. Turned patient as appropriate. Gave medication as prescribed. Made sure barber care was done. Patient is currently resting. Will continue to monitor. PLAN MOVING FORWARD: Monitor pain Monitor I&O Encourage ambulation INDIVIDUALIZED FALL PREVENTION INTERVENTIONS: Patient-specific fall risk factors per assessment: [current deficits]: Needs assistance getting outof bed Assistance [level of assistance required for transfers and ambulation]: Walker, up x 1 assist Supervision [direct monitoring required during toileting and ADLs]: Hands on Surveillance [continuous indirect monitoring]: Call light within reach, bed alarm on Patient-specific fall prevention interventions for sensory deficits provided, if applicable: [X] Yes CPG GOAL OUTCOME EVALUATION: Problem: Adult Inpatient Plan of Care Goal: Plan of Care Review Outcome: Ongoing (Interventions Implemented as Appropriate) Goal: Patient-Specific Goal (Individualized) Outcome: Ongoing (Interventions Implemented as Appropriate) Goal: Absence of Hospital-Acquired Illness or Injury Outcome: Ongoing (Interventions Implemented as Appropriate) Goal: Optimal Comfort and Wellbeing Outcome: Ongoing (Interventions Implemented as Appropriate) Goal: Readiness for Transition of Care Outcome: Ongoing (Interventions Implemented as Appropriate) Problem: Fall Injury Risk Goal: Absence of Fall and Fall-Related Injury Outcome: Ongoing (Interventions Implemented as Appropriate) Problem: Diabetes Comorbidity Goal: Blood Glucose Level Within Targeted Range Outcome: Ongoing (Interventions Implemented as Appropriate) Problem: Hypertension Comorbidity Goal: Blood Pressure in Desired Range Outcome: Ongoing (Interventions Implemented as Appropriate) * Plan of Care - Naman Ireland RN - 11/18/2023 1:07 AM EDT OUTCOME EVALUATION NOTE: OUTCOME SUMMARY: A&0x4. VSS. RA. BM tonoc. Repositioned indep in bed. Ambulated to BR multiple times w/SBA &FWW. Wt shifting indep,. SP Catheter yielding moderate volume yellow/sediment urine.Denies c/o pain/discomfort. Denies c/o N/V. Sacral Mepilex remains CDI. BLE compression wraps intact. PLAN Moving forward Pain Management Monitor I&0 D/C Planning Encourage Ambulation INDIVIDUALIZED FALL PREVENTION INTERVENTIONS: Patient-specific fall risk factors per assessment: [current deficits]: Generalized weakness, Deconditioned, Unfamiliar environment, Tethering drain. Assistance [level of assistance required for transfers and ambulation]: SBA w/ fww Supervision [direct monitoring required during toileting and ADLs]: FWW Surveillance [continuous indirect monitoring]: Bertram Santana lt within reach, Purposeful rounding Patient-specific fall prevention interventions for sensory deficits provided, if applicable: Yes CARE PLAN GOAL OUTCOME EVALUATION: Problem: Adult Inpatient Plan of Care Goal: Plan of Care Review Outcome: Ongoing (Interventions Implemented as Appropriate) Goal: Patient-Specific Goal (Individualized) Outcome: Ongoing (Interventions Implemented as Appropriate) Goal: Absence of Hospital-Acquired Illness or Injury Outcome: Ongoing (Interventions Implemented as Appropriate) Goal: Optimal Comfort and Wellbeing Outcome: Ongoing (Interventions Implemented as Appropriate) Goal: Readiness for Transition of Care Outcome: Ongoing (Interventions Implemented as Appropriate) Problem: Fall Injury Risk Goal: Absence of Fall and Fall-Related Injury Outcome: Ongoing (Interventions Implemented as Appropriate) Problem: Diabetes Comorbidity Goal: Blood Glucose Level Within Targeted Range Outcome: Ongoing (Interventions Implemented as Appropriate) Problem: Hypertension Comorbidity Goal: Blood Pressure in Desired Range Outcome: Ongoing (Interventions Implemented as Appropriate) * Plan of Care - Jany Perez RN - 11/17/2023 5:24 PM EDT OUTCOME EVALUATION NOTE: OUTCOME SUMMARY: Patient alert and oriented x 4, on room air. Patient walked to the bathroom this shift with 1 assist and walker. No complaints of pain. Patient had BM this shift. Voids per suprapubic catheter. No complaints of pain. Patient up to chair for meals. PLAN MOVING FORWARD: Monitor pain Monitor I&O Encourage ambulation INDIVIDUALIZED FALL PREVENTION INTERVENTIONS: Patient-specific fall risk factors per assessment: [current deficits]: Needs assistance getting outof bed Assistance [level of assistance required for transfers and ambulation]: Walker, up x 1 assist Supervision [direct monitoring required during toileting and ADLs]: Hands on Surveillance [continuous indirect monitoring]: Call light within reach, bed alarm on Patient-specific fall prevention interventions for sensory deficits provided, if applicable: [X] Yes CPG GOAL OUTCOME EVALUATION: Problem: Adult Inpatient Plan of Care Goal: Plan of Care Review Outcome: Ongoing (Interventions Implemented as Appropriate) Goal: Patient-Specific Goal (Individualized) Outcome: Ongoing (Interventions Implemented as Appropriate) Goal: Absence of Hospital-Acquired Illness or Injury Outcome: Ongoing (Interventions Implemented as Appropriate) Goal: Optimal Comfort and Wellbeing Outcome: Ongoing (Interventions Implemented as Appropriate) Goal: Readiness for Transition of Care Outcome: Ongoing (Interventions Implemented as Appropriate) Problem: Fall Injury Risk Goal: Absence of Fall and Fall-Related Injury Outcome: Ongoing (Interventions Implemented as Appropriate) Problem: Diabetes Comorbidity Goal: Blood Glucose Level Within Targeted Range Outcome: Ongoing (Interventions Implemented as Appropriate) Problem: Hypertension Comorbidity Goal: Blood Pressure in Desired Range Outcome: Ongoing (Interventions Implemented as Appropriate) * Consult Note - Marlin Cabrera MSW - 11/17/2023 4:49 PM EDTSummary: RESORT HOST consult RESORT HOST spoke with out patient family caseworker Alexis from [facility] [facility]. CM noted that they have not [place] able to [place] due to [place]'s current financial situation and her giving money toa scam monthly. Pt has been paying them roughly $800 monthly and is not open to discussing the situation per CM. CM also reports that pt's current housing situation includes hoarding and bed bugs. RESORT HOST concerned that home situation will be a barrier to VNA services if d/c to home. RESORT HOST to follow up with pt and pt's daughter and son as there has been discussion of going to live with them. RESORT HOST will follow with pt, family, and pt's outpatient team for continuation of care. [facility], Social Work Office of Care Management Pager: [phone] * Consult Note - Marlin Cabrera MSW - 11/17/2023 4:22 PM EDTSummary: RESORT HOST consult follow up RESORT HOST spoke to PCP Dr. Stapleton, who shared some psychosocial background regarding patients current situation and barriers to d/c planning/ factors to please consider. Per Dr. Stapleton: Prior to this admission Hope was in an apartment with mostly independent living. But, she is very much in danger of losing that housing. She has not been paying that rent. There has been a real fear for months that landlord would start eviction process. We think it would be great if she could bein assisted living. Not really sure if the family is aware that Hope has been getting scammed. Dr. Stapleton gave further insight into the past couple months of Jose Rafael's social situation, and shared that Hope is service connected to a welfare case worker through the [place] [facility] [place]. Per PCP: I would like to give you a phone number for her [place] [facility] welfare case worker, who may beaware of if senior property accountant medicaid is started. His name is Alexis, and number is [phone] My understanding was that she had wanted to go to her son's in [place]. RESORT HOST thanked PCP for the background information and plans to follow up with Alexis (welfare case worker) and ideally with the family regarding a goals of care/ senior property accountant plan for Hope at d/c. [facility], Social Work Office of Care Management Pager: [phone] * Consult Note - Marlin Cabrera MSW - 11/17/2023 1:25 PM EDTSummary: RESORT HOST consult follow up This RESORT HOST was asked by colleague to follow up with pt's PCP per a message left on her answering machine regarding pt and pt's d/c plan/background. RESORT HOST called PCP (Pieter) at the number provided by [facility] RESORT HOST ([phone]) -- no answer so RESORT HOST left a message requesting a return call. RESORT HOST will continue to follow up. [facility], Social Work Office of Care Management Pager: [phone] * Plan of Care - Erma Vargas RN - 11/17/2023 4:15 AM EDT OUTCOME EVALUATION NOTE: OUTCOME SUMMARY: Pt A&Ox4 throughout shift. Pt tolerating cc diet w/out complaints of N/V. Pts PIV saline locked, tolerating well. Pt did have fingerstick glucose of 69 at 0400 check, pt given OJ. Pt did not ambulate during shift. Pt w/Coccyx Wound and LE ulcer, tolerating w/out complaints of pain. Pt voiding QS via suprapubic catheter, no c/o pain. Pt has not moved bowels over this shift. Pt able to rest between care. Bed Alarm activated for safety. PLAN MOVING FORWARD: Monitor Pain, Monitor I&O, Encourage Ambulation, Monitor PO tolerance, Maintain Safety, Discharge Planning INDIVIDUALIZED FALL PREVENTION INTERVENTIONS: Patient-specific fall risk factors per assessment: [current deficits]: Mobility aid at home, History of falls, Needs assistance getting out of bed or chair, Pain with movement/ambulation. Assistance [level of assistance required for transfers and ambulation]: Walker, Non-skid shoes/slippers, 1 person assist Supervision [direct monitoring required during toileting and ADLs]: Hands on Surveillance [continuous indirect monitoring]: Purposeful rounding, Call puckett in reach, Bed alarm, Direct observation Patient-specific fall prevention interventions for sensory deficits provided, if applicable: [X] Yes Light adjusted for task/safety CPG GOAL OUTCOME EVALUATION: Problem: Adult Inpatient Plan of Care Goal: Plan of Care Review Outcome: Ongoing (Interventions Implemented as Appropriate) Goal: Patient-Specific Goal (Individualized) Outcome: Ongoing (Interventions Implemented as Appropriate) Goal: Absence of Hospital-Acquired Illness or Injury Outcome: Ongoing (Interventions Implemented as Appropriate) Goal: Optimal Comfort and Wellbeing Outcome: Ongoing (Interventions Implemented as Appropriate) Goal: Readiness for Transition of Care Outcome: Ongoing (Interventions Implemented as Appropriate) Problem: Fall Injury Risk Goal: Absence of Fall and Fall-Related Injury Outcome: Ongoing (Interventions Implemented as Appropriate) Problem: Diabetes Comorbidity Goal: Blood Glucose Level Within Targeted Range Outcome: Ongoing (Interventions Implemented as Appropriate) Problem: Hypertension Comorbidity Goal: Blood Pressure in Desired Range Outcome: Ongoing (Interventions Implemented as Appropriate) * Plan of Care - Judy Gould RN - 11/16/2023 6:09 PM EDT OUTCOME EVALUATION NOTE: OUTCOME SUMMARY: Hope is A&Ox4. VSS on RA. Reported SMITH this AM resolved with tylenol. Denies CP, SOB or nausea. Up to chair this AM and HR noted to reach 150's. BP stable. Pt denies chest pain or fluttering. HRreturned to 80-110's at rest. notified. Adequate UOP via SP catheter. No BM today. BLE with compression stockings. FS treated per AUG today. RLE dsg changed today. [facility] PLAN MOVING FORWARD: Q4 FS D/C planning for [facility] INDIVIDUALIZED FALL PREVENTION INTERVENTIONS: Patient-specific fall risk factors per assessment: [current deficits]: Tethering lines and drains, generalized weakness, unfamiliar environment. Assistance [level of assistance required for transfers and ambulation]: 1 assist w/ FWW Supervision [direct monitoring required during toileting and ADLs]: Hands on Surveillance [continuous indirect monitoring]: Environmental monitoring, purposeful rounding, ringscall puckett appropriately Patient-specific fall prevention interventions for sensory deficits provided, if applicable: Non-skid slippers on, lighting adjusted, belongings within reach. CPG GOAL OUTCOME EVALUATION: Problem: Adult Inpatient Plan of Care Goal: Plan of Care Review Outcome: Ongoing (Interventions Implemented as Appropriate) Goal: Patient-Specific Goal (Individualized) Outcome: Ongoing (Interventions Implemented as Appropriate) Goal: Absence of Hospital-Acquired Illness or Injury Outcome: Ongoing (Interventions Implemented as Appropriate) Goal: Optimal Comfort and Wellbeing Outcome: Ongoing (Interventions Implemented as Appropriate) Goal: Readiness for Transition of Care Outcome: Ongoing (Interventions Implemented as Appropriate) Problem: Fall Injury Risk Goal: Absence of Fall and Fall-Related Injury Outcome: Ongoing (Interventions Implemented as Appropriate) Problem: Diabetes Comorbidity Goal: Blood Glucose Level Within Targeted Range Outcome: Ongoing (Interventions Implemented as Appropriate) Problem: Hypertension Comorbidity Goal: Blood Pressure in Desired Range Outcome: Ongoing (Interventions Implemented as Appropriate) * Plan of Care - Judy Gould RN - 11/15/2023 6:46 PM EDT OUTCOME EVALUATION NOTE: OUTCOME SUMMARY: Hope is A&Ox4. VSS on RA. Denies CP, SOB or nausea. Reports some pain in bilateral feet managed with scheduled meds. Suprapubic catheter draining cloudy, yellow urine. BM x1 today. Mepilex applied to sacrum, skin intact. Interdry applied along IMF. BLE stockings in place. Contact precautions maintained - no evidence of bed bugs. Up in chair today. WCTM Pt c/o a strange sensation in L chest this afternoon after using commode. See other note from this RN. MD at bedside and tums ordered with good effect. 1800 - dinner brought to patient. Noted to be diaphoretic. FS 55. OJ given and pt eating dinner. Re-check 52. More OJ given and pt drinking milk from dinner. Remains diaphoretic, but alert. MD notified. Re-check 70, pt given more OJ and pudding. PLAN MOVING FORWARD: D/C planning Contact precautions INDIVIDUALIZED FALL PREVENTION INTERVENTIONS: Patient-specific fall risk factors per assessment: [current deficits]: Tethering lines and drains, generalized weakness, unfamiliar environment. Assistance [level of assistance required for transfers and ambulation]: 1 assist w/ FWW Supervision [direct monitoring required during toileting and ADLs]: hands on Surveillance [continuous indirect monitoring]: Environmental monitoring, purposeful rounding, ringscall puckett appropriately Patient-specific fall prevention interventions for sensory deficits provided, if applicable: Non-skid slippers on, lighting adjusted, belongings within reach. CPG GOAL OUTCOME EVALUATION: Problem: Adult Inpatient Plan of Care Goal: Plan of Care Review Outcome: Ongoing (Interventions Implemented as Appropriate) Goal: Patient-Specific Goal (Individualized) Outcome: Ongoing (Interventions Implemented as Appropriate) Goal: Absence of Hospital-Acquired Illness or Injury Outcome: Ongoing (Interventions Implemented as Appropriate) Goal: Optimal Comfort and Wellbeing Outcome: Ongoing (Interventions Implemented as Appropriate) Goal: Readiness for Transition of Care Outcome: Ongoing (Interventions Implemented as Appropriate) Problem: Fall Injury Risk Goal: Absence of Fall and Fall-Related Injury Outcome: Ongoing (Interventions Implemented as Appropriate) Problem: Diabetes Comorbidity Goal: Blood Glucose Level Within Targeted Range Outcome: Ongoing (Interventions Implemented as Appropriate) Problem: Hypertension Comorbidity Goal: Blood Pressure in Desired Range Outcome: Ongoing (Interventions Implemented as Appropriate) * Plan of Care - Marry Oquendo RN - 11/15/2023 2:16 AM EDT OUTCOME SUMMARY: Pt A&Ox4, able to make needs known, uses call puckett appropriately, appropriate and jovial with staff. VSS. Afebrile. No c/o nausea. Pt voiding adequate amounts via suprapubic barber. Pt passing gas; pt had 0 BMs this shift, had BM during day shift Patient denies pain Wounds clean,dry,intact to sacrum and RLE Suprapubic barber in place, output charted for shift Pt up in chair for majority of day, tolerated well. Assisted patient back to bed with walker -tolerated well Patient had hypoglycemic episode at 0037 - blood sugar 58 - patient alert and oriented x 4, followscommands, woke up and drank 236cc of orange juice - took blood sugar 15min after intervention and blood sugar came up to 81. MD notified and made aware through page and epic chat (Sammy Bose MD) Call puckett in ann, verbalized understanding of POC, Will continue with the current plan of care and update as indicated. Patient Vitals for the past 8 hrs: BP Temp Temp src Resp SpO2 11/15/23 0215 -- -- -- -- 94 % 11/15/23 0101 -- -- -- -- 91 % 11/15/23 0100 -- -- -- -- 90 % 11/15/23 0042 146/85 36.2 ??C (97.2 ??F) Oral 18 90 % 11/14/232099 -- -- -- -- 96 % 11/14/232041 113/71 -- -- 18 98 % 11/14/232038 -- 36.5 ??C (97.7 ??F) Oral -- 98 % PLAN MOVING FORWARD: Encourage independence. Encourage ambulation. Encourage fluids/nutrition. Maintain pain control. Monitor blood sugar levels INDIVIDUALIZED FALL PREVENTION INTERVENTIONS: Patient-specific fall risk factors per assessment: [current deficits]: Tethering of lines, new environment, assistive devices, generalized weakness, unsteady gait Assistance [level of assistance required for transfers and ambulation]: SBA with walker Supervision [direct monitoring required during toileting and ADLs]: (eyes on/arms reach/hands on) Surveillance [continuous indirect monitoring]: Room near nurses station purposeful rounding call puckett in reach Patient-specific fall prevention interventions for sensory deficits provided, if applicable: [X] Yes, environmental modifications, lights adjusted to task, non- skid socks CPG GOAL OUTCOME EVALUATION: Ongoing Problem: Adult Inpatient Plan of Care Goal: Plan of Care Review Outcome: Ongoing (Interventions Implemented as Appropriate) Flowsheets (Taken 11/13/2023 0445) Plan of Care Reviewed With: patient Progress: improving Goal: Patient-Specific Goal (Individualized) Outcome: Ongoing (Interventions Implemented as Appropriate) Flowsheets (Taken 11/06/2023 1514 by Sun Aviles RN) Anxieties, Fears or Concerns: none, I feel comfortable about what is going on Individualized Care Needs: none Patient-Specific Goals (Include Timeframe): none Goal: Absence of Hospital-Acquired Illness or Injury Outcome: Ongoing (Interventions Implemented as Appropriate) Intervention: Identify and Manage Fall Risk Flowsheets (Taken 11/14/20232041) Safety Promotion/Fall Prevention: activity supervised assistive device/personal items within reach clutter free environment maintained elopement precautions initiated fall prevention program maintained lighting adjusted mobility aid in reach nonskid shoes/slippers when out of bed room organization consistent safety round/check completed toileting scheduled Intervention: Prevent Skin Injury Flowsheets (Taken 11/15/2023 0215) Body Position: position changed independently side-lying up in chair Intervention: Prevent and Manage VTE (Venous Thromboembolism) Risk Flowsheets (Taken 11/14/20232041) VTE Prevention/Management: anticoagulant therapy Intervention: Prevent Infection Flowsheets (Taken 11/14/20232041) Infection Prevention: environmental surveillance performed equipment surfaces disinfected hand hygiene promoted personal protective equipment utilized rest/sleep promoted single patient room provided Goal: Optimal Comfort and Wellbeing Outcome: Ongoing (Interventions Implemented as Appropriate) Intervention: Provide Person-Centered Care Flowsheets (Taken 11/14/20232041) Trust Relationship/Rapport: care explained choices provided emotional support provided empathic listening provided questions encouraged reassurance provided questions answered thoughts/feelings acknowledged Goal: Readiness for Transition of Care Outcome: Ongoing (Interventions Implemented as Appropriate) Problem: Fall Injury Risk Goal: Absence of Fall and Fall-Related Injury Outcome: Ongoing (Interventions Implemented as Appropriate) Intervention: Identify and Manage Contributors Flowsheets (Taken 11/14/20232041) Medication Review/Management: medications reviewed Self-Care Promotion: BADL personal objects within reach independence encouraged BADL personal routines maintained meal set-up provided safe use of adaptive equipment encouraged Intervention: Promote Injury-Free Environment Flowsheets (Taken 11/14/20232041) Safety Promotion/Fall Prevention: activity supervised assistive device/personal items within reach clutter free environment maintained elopement precautions initiated fall prevention program maintained lighting adjusted mobility aid in reach nonskid shoes/slippers when out of bed room organization consistent safety round/check completed toileting scheduled Problem: Diabetes Comorbidity Goal: Blood Glucose Level Within Targeted Range Outcome: Ongoing (Interventions Implemented as Appropriate) Intervention: Monitor and Manage Glycemia Flowsheets (Taken 11/14/20232041) Glycemic Management: blood glucose monitored Problem: Hypertension Comorbidity Goal: Blood Pressure in Desired Range Outcome: Ongoing (Interventions Implemented as Appropriate) Intervention: Maintain Blood Pressure Management Flowsheets (Taken 11/14/20232041) Medication Review/Management: medications reviewed * Plan of Care - Jeanine Mejias RN - 11/14/2023 2:31 PM EDT Patient aao x 4. Speech clear. Denies pain. Chg bath given. Suprapubic cath in place . Po fluids provided. Diabetic management in progress. Appetite good. Patient sitting in chair. Magnesium replaced. Iv fluids discontinued. BM x1. Denies pain . Safety and comfort maintained. Bed in lowest position. Problem: Adult Inpatient Plan of Care Goal: Plan of Care Review Outcome: Unable to achieve outcome by discharge Goal: Patient-Specific Goal (Individualized) Outcome: Unable to achieve outcome by discharge Goal: Absence of Hospital-Acquired Illness or Injury Outcome: Unable to achieve outcome by discharge Goal: Optimal Comfort and Wellbeing Outcome: Unable to achieve outcome by discharge Goal: Readiness for Transition of Care Outcome: Unable to achieve outcome by discharge Problem: Fall Injury Risk Goal: Absence of Fall and Fall-Related Injury Outcome: Unable to achieve outcome by discharge Problem: Diabetes Comorbidity Goal: Blood Glucose Level Within Targeted Range Outcome: Unable to achieve outcome by discharge Problem: Hypertension Comorbidity Goal: Blood Pressure in Desired Range Outcome: Unable to achieve outcome by discharge * Plan of Care - Marry Oquendo RN - 11/14/2023 2:21 AM EDT OUTCOME SUMMARY: Pt A&Ox4, able to make needs known, uses call puckett appropriately, appropriate and jovial with staff. VSS. Afebrile. No c/o nausea. Pt voiding adequate amounts via suprapubic catheter. Pt passing gas; pt had 0 BMs this shift. Pain denies any pain throughout shift Barber in place, CDI, draining well. Patient on continous IV fluids, tolerating okay Blood sugars checked every 4 hours and more frequently per protocol Call puckett in reach, verbalized understanding of POC, Will continue with the current plan of care and update as indicated. Patient Vitals for the past 8 hrs: BP Temp Temp src Resp SpO2 11/14/23 0012 146/80 36.6 ??C (97.9 ??F) Oral 18 93 % 11/13/23 1950 130/71 36.4 ??C (97.5 ??F) Oral 18 97 % PLAN MOVING FORWARD: Encourage independence. Encourage ambulation. Encourage fluids/nutrition. Maintain pain control. Monitor blood glucose levels INDIVIDUALIZED FALL PREVENTION INTERVENTIONS: Patient-specific fall risk factors per assessment: [current deficits]: Tethering of lines, new environment, assistive devices, generalized weakness Assistance [level of assistance required for transfers and ambulation]: SBA for tethering of lines, x1 asst with walker/cane Supervision [direct monitoring required during toileting and ADLs]: eyes on/arms reach/hands on Surveillance [continuous indirect monitoring]: Room near nurses station purposeful rounding call puckett in reach Patient-specific fall prevention interventions for sensory deficits provided, if applicable: [X] Yes, environmental modifications, lights adjusted to task, non- skid socks CPG GOAL OUTCOME EVALUATION: Ongoing Problem: Adult Inpatient Plan of Care Goal: Plan of Care Review Outcome: Ongoing (Interventions Implemented as Appropriate) Flowsheets (Taken 11/13/2023444) Plan of Care Reviewed With: patient Progress: improving Goal: Patient-Specific Goal (Individualized) Outcome: Ongoing (Interventions Implemented as Appropriate) Goal: Absence of Hospital-Acquired Illness or Injury Outcome: Ongoing (Interventions Implemented as Appropriate) Intervention: Identify and Manage Fall Risk Flowsheets (Taken 11/13/20231949) Safety Promotion/Fall Prevention: activity supervised clutter free environment maintained assistive device/personal items within reach elopement precautions initiated fall prevention program maintained lighting adjusted mobility aid in reach nonskid shoes/slippers when out of bed room organization consistent toileting scheduled safety round/check completed Intervention: Prevent Skin Injury Flowsheets (Taken 11/13/20231949) Body Position: position changed independently Intervention: Prevent and Manage VTE (Venous Thromboembolism) Risk Flowsheets (Taken 11/13/20231949) VTE Prevention/Management: anticoagulant therapy Intervention: Prevent Infection Flowsheets (Taken 11/13/20231949) Infection Prevention: environmental surveillance performed equipment surfaces disinfected hand hygiene promoted personal protective equipment utilized single patient room provided rest/sleep promoted Goal: Optimal Comfort and Wellbeing Outcome: Ongoing (Interventions Implemented as Appropriate) Intervention: Provide Person-Centered Care Flowsheets (Taken 11/13/20231949) Trust Relationship/Rapport: care explained choices provided emotional support provided empathic listening provided questions answered reassurance provided questions encouraged thoughts/feelings acknowledged Goal: Readiness for Transition of Care Outcome: Ongoing (Interventions Implemented as Appropriate) Problem: Fall Injury Risk Goal: Absence of Fall and Fall-Related Injury Outcome: Ongoing (Interventions Implemented as Appropriate) Intervention: Identify and Manage Contributors Flowsheets (Taken 11/13/20231949) Medication Review/Management: medications reviewed Self-Care Promotion: independence encouraged BADL personal objects within reach BADL personal routines maintained meal set-up provided safe use of adaptive equipment encouraged Intervention: Promote Injury-Free Environment Flowsheets (Taken 11/13/20231949) Safety Promotion/Fall Prevention: activity supervised clutter free environment maintained assistive device/personal items within reach elopement precautions initiated fall prevention program maintained lighting adjusted mobility aid in reach nonskid shoes/slippers when out of bed room organization consistent toileting scheduled safety round/check completed Problem: Diabetes Comorbidity Goal: Blood Glucose Level Within Targeted Range Outcome: Ongoing (Interventions Implemented as Appropriate) Intervention: Monitor and Manage Glycemia Flowsheets (Taken 11/13/20231949) Glycemic Management: blood glucose monitored Problem: Hypertension Comorbidity Goal: Blood Pressure in Desired Range Outcome: Ongoing (Interventions Implemented as Appropriate) Intervention: Maintain Blood Pressure Management Flowsheets (Taken 11/13/20231949) Medication Review/Management: medications reviewed * Plan of Care - Jeanine Mejias RN - 11/13/2023 5:09 PM EDT Patient aao x 4. Denies pain. Wound care provided. Remains on every 4 hour blood glucose monitoring. Assist of one with transfers. Bm x 1 for shift. Suprapubic catheter care rendered. Straight cath x1 as ordered. Fluids started on shift ns @ 75ml/hr. Po fluid encouraged. CHG bath provided. Safety and comfort maintained Problem: Adult Inpatient Plan of Care Goal: Plan of Care Review Outcome: Ongoing (Interventions Implemented as Appropriate) Goal: Patient-Specific Goal (Individualized) Outcome: Ongoing (Interventions Implemented as Appropriate) Goal: Absence of Hospital-Acquired Illness or Injury Outcome: Ongoing (Interventions Implemented as Appropriate) Goal: Optimal Comfort and Wellbeing Outcome: Ongoing (Interventions Implemented as Appropriate) Goal: Readiness for Transition of Care Outcome: Ongoing (Interventions Implemented as Appropriate) Problem: Fall Injury Risk Goal: Absence of Fall and Fall-Related Injury Outcome: Ongoing (Interventions Implemented as Appropriate) Problem: Diabetes Comorbidity Goal: Blood Glucose Level Within Targeted Range Outcome: Ongoing (Interventions Implemented as Appropriate) Problem: Hypertension Comorbidity Goal: Blood Pressure in Desired Range Outcome: Ongoing (Interventions Implemented as Appropriate) * Plan of Care - Marry Oquendo RN - 11/13/2023 4:46 AM EDT OUTCOME SUMMARY: Pt A&Ox4, able to make needs known, uses call puckett appropriately, appropriate and jovial with staff. VSS. Afebrile. No c/o nausea. Pt voiding adequate amounts via suprapubic catheter. Pt passing gas; pt had 1 BMs this shift Patient denies any pain/shortness of breath Suprapubic barber in place, draining well/output charted for shift Pt ambulates with walker, standby assist, tolerated well-unsteady gait Call puckett in reach, verbalized understanding of POC, Will continue with the current plan of care and update as indicated. Patient Vitals for the past 8 hrs: BP Temp Temp src Resp SpO2 11/13/23 0325 120/69 36.4 ??C (97.5 ??F) Axillary 18 95 % 11/13/23 0323 -- -- -- -- 95 % 11/13/23 0000 126/73 36.7 ??C (98.1 ??F) Axillary -- 97 % PLAN MOVING FORWARD: Encourage independence. Encourage ambulation. Encourage fluids/nutrition. Maintain pain control Monitor blood glucose levels INDIVIDUALIZED FALL PREVENTION INTERVENTIONS: Patient-specific fall risk factors per assessment: [current deficits]: new environment, assistive devices, generalized weakness, unsteady gait Assistance [level of assistance required for transfers and ambulation]: SBA with walker - to bedside commode Supervision [direct monitoring required during toileting and ADLs]: (eyes on/arms reach/hands on) Surveillance [continuous indirect monitoring]: Room near nurses station purposeful rounding call puckett in reach Patient-specific fall prevention interventions for sensory deficits provided, if applicable: [X] Yes, environmental modifications, lights adjusted to task, non- skid socks CPG GOAL OUTCOME EVALUATION: Ongoing Problem: Adult Inpatient Plan of Care Goal: Plan of Care Review Outcome: Ongoing (Interventions Implemented as Appropriate) Flowsheets (Taken 11/13/2023444) Plan of Care Reviewed With: patient Progress: improving Goal: Patient-Specific Goal (Individualized) Outcome: Ongoing (Interventions Implemented as Appropriate) Flowsheets (Taken 11/06/2023 1514 by Sun Aviles, RN) Anxieties, Fears or Concerns: none, I feel comfortable about what is going on Individualized Care Needs: none Patient-Specific Goals (Include Timeframe): none Goal: Absence of Hospital-Acquired Illness or Injury Outcome: Ongoing (Interventions Implemented as Appropriate) Intervention: Identify and Manage Fall Risk Flowsheets (Taken 11/13/2023324) Safety Promotion/Fall Prevention: activity supervised assistive device/personal items within reach clutter free environment maintained elopement precautions initiated fall prevention program maintained lighting adjusted mobility aid in reach room organization consistent nonskid shoes/slippers when out of bed toileting scheduled safety round/check completed Intervention: Prevent Skin Injury Flowsheets (Taken 11/13/2023444) Body Position: position changed independently right side-lying Intervention: Prevent and Manage VTE (Venous Thromboembolism) Risk Flowsheets (Taken 11/13/2023324) VTE Prevention/Management: anticoagulant therapy compression stockings on Intervention: Prevent Infection Flowsheets (Taken 11/13/2023324) Infection Prevention: environmental surveillance performed equipment surfaces disinfected hand hygiene promoted personal protective equipment utilized single patient room provided rest/sleep promoted Goal: Optimal Comfort and Wellbeing Outcome: Ongoing (Interventions Implemented as Appropriate) Intervention: Provide Person-Centered Care Flowsheets (Taken 11/13/2023324) Trust Relationship/Rapport: care explained emotional support provided choices provided empathic listening provided questions answered questions encouraged reassurance provided thoughts/feelings acknowledged Goal: Readiness for Transition of Care Outcome: Ongoing (Interventions Implemented as Appropriate) Problem: Fall Injury Risk Goal: Absence of Fall and Fall-Related Injury Outcome: Ongoing (Interventions Implemented as Appropriate) Intervention: Identify and Manage Contributors Flowsheets (Taken 11/13/2023324) Medication Review/Management: medications reviewed Self-Care Promotion: independence encouraged BADL personal objects within reach BADL personal routines maintained Intervention: Promote Injury-Free Environment Flowsheets (Taken 11/13/2023324) Safety Promotion/Fall Prevention: activity supervised assistive device/personal items within reach clutter free environment maintained elopement precautions initiated fall prevention program maintained lighting adjusted mobility aid in reach room organization consistent nonskid shoes/slippers when out of bed toileting scheduled safety round/check completed Problem: Diabetes Comorbidity Goal: Blood Glucose Level Within Targeted Range Outcome: Ongoing (Interventions Implemented as Appropriate) Intervention: Monitor and Manage Glycemia Flowsheets (Taken 11/06/20231999 by Rema Cedeno, RN) Glycemic Management: blood glucose monitored Problem: Hypertension Comorbidity Goal: Blood Pressure in Desired Range Outcome: Ongoing (Interventions Implemented as Appropriate) Intervention: Maintain Blood Pressure Management Flowsheets (Taken 11/13/2023324) Medication Review/Management: medications reviewed * Plan of Care - Beth Quarles RN - 11/13/2023 3:15 AM EDT OUTCOME EVALUATION NOTE: OUTCOME SUMMARY: Pt with no acute events overnight. A/Ox4. VSS on RA. Suprapubic cath with AUOP. 1 soft BM overnight. Safety maintained, pt able to rest between care. Pt received bed on 4W. Report given to receiving RN. Pt transported via wheelchair with transporter driver and pt belongings, all double bagged. PLAN MOVING FORWARD: Q4 vitals Q4 BGL Contact precautions - bed bugs Transfer to floor INDIVIDUALIZED FALL PREVENTION INTERVENTIONS: Patient-specific fall risk factors per assessment: [current deficits]: Lines, drains, pain, generalized weakness, altered mental status, medication effects, hospital equipment, and mobility limitations Assistance [level of assistance required for transfers and ambulation]: 2 assist Supervision [direct monitoring required during toileting and ADLs]: Hands on Surveillance [continuous indirect monitoring]: [facility], bed alarm, purposeful rounding, room near nurses station Patient-specific fall prevention interventions for sensory deficits provided, if applicable: [X] Yes CARE PLAN GOAL OUTCOME EVALUATION: Problem: Adult Inpatient Plan of Care Goal: Plan of Care Review Outcome: Ongoing (Interventions Implemented as Appropriate) Goal: Patient-Specific Goal (Individualized) Outcome: Ongoing (Interventions Implemented as Appropriate) Goal: Absence of Hospital-Acquired Illness or Injury Outcome: Ongoing (Interventions Implemented as Appropriate) Goal: Optimal Comfort and Wellbeing Outcome: Ongoing (Interventions Implemented as Appropriate) Goal: Readiness for Transition of Care Outcome: Ongoing (Interventions Implemented as Appropriate) Problem: Fall Injury Risk Goal: Absence of Fall and Fall-Related Injury Outcome: Ongoing (Interventions Implemented as Appropriate) Problem: Diabetes Comorbidity Goal: Blood Glucose Level Within Targeted Range Outcome: Ongoing (Interventions Implemented as Appropriate) Problem: Hypertension Comorbidity Goal: Blood Pressure in Desired Range Outcome: Ongoing (Interventions Implemented as Appropriate) Beth Quarles, KRIS * Plan of Care - Rere Saavedra RN - 11/12/2023 5:49 PM EDT OUTCOME EVALUATION NOTE: OUTCOME SUMMARY: Pt remains on room air. Up to chair with walker and stand by assist. Suprapubic cath exchanged by urology at bedside. Barber dc. Pt up to commode for BM multiple times. Multiple high glucose rechecks,insulin given protocol. Pt seen by wound care. Diet adjusted. PLAN MOVING FORWARD: Q4 FS Transfer to floor INDIVIDUALIZED FALL PREVENTION INTERVENTIONS: Patient-specific fall risk factors per assessment: [current deficits]: Lines, drains, generalized weakness, medication effects, hospital equipment, mobility limitations. Assistance [level of assistance required for transfers and ambulation]: Walker stand by assist Supervision [direct monitoring required during toileting and ADLs]: Hands on Surveillance [continuous indirect monitoring]: [facility], bed alarm, purposeful rounding, room near nurses station. Patient-specific fall prevention interventions for sensory deficits provided, if applicable: YES CARE PLAN GOAL OUTCOME EVALUATION: Problem: Adult Inpatient Plan of Care Goal: Plan of Care Review Outcome: Ongoing (Interventions Implemented as Appropriate) Goal: Patient-Specific Goal (Individualized) Outcome: Ongoing (Interventions Implemented as Appropriate) Goal: Absence of Hospital-Acquired Illness or Injury Outcome: Ongoing (Interventions Implemented as Appropriate) Goal: Optimal Comfort and Wellbeing Outcome: Ongoing (Interventions Implemented as Appropriate) Goal: Readiness for Transition of Care Outcome: Ongoing (Interventions Implemented as Appropriate) Problem: Fall Injury Risk Goal: Absence of Fall and Fall-Related Injury Outcome: Ongoing (Interventions Implemented as Appropriate) Problem: Diabetes Comorbidity Goal: Blood Glucose Level Within Targeted Range Outcome: Ongoing (Interventions Implemented as Appropriate) Problem: Hypertension Comorbidity Goal: Blood Pressure in Desired Range Outcome: Ongoing (Interventions Implemented as Appropriate) * Consult Note - Patty Cornelius RN - 11/12/2023 3:20 PM EDT Images from the original note were not included. Certified Wound Care Nurse Note Situation: Follow up to see Hope Yee for stage 2 sacral pressure injury and right lower leg venous wound. Background: eD-H notes reviewed for history, admitting diagnosis and active problem list. Per MD note of today: Hope Yee is a 73 y.o. female with PMH of HTN, atrial fibrillation on rivaroxaban, poorly-controlled T2DM, CKD, chronic indwelling suprapubic catheter, and prior TIA presenting in transfer from [facility] with bradycardia, hypotension, and hyperglycemia. Noted PATRICK's have been updated, patient has no significant arterial disease. Wound Assessment and Care Provided: Patient seen this morning in room IC15-A in bed, reason for visit explained to patient, permission received to assess skin. Patient on the phone during visit. Dermafits remain on the bilateral lower legs. Patient has no complaints about the Dermafits. Dermafit moved up to assess the right lower leg wound, Mepilex Border removed. This wound has resurfaced, Mepilex Border applied to protect the area and Dermafit placed back. Patient was able to turn to the right with assist. Mepilex Border Sacrum changed. Pressure injury at the sacrum is resolved and the buttocks wounds are near resolution. Right lower leg: Sacrum and buttocks: Antony Score: 18 Last Pressure Ulcer Prevention assessment: Shift Pressure Injury Prevention Occiput: No Injury Thoracic Spine: No Injury Sacral: Existing Injury prior to this admission Ischial - left: No Injury Ischial - right: No Injury Heel - left: No Injury Heel - right: No Injury Elbow - left: No Injury Elbow - right: No Injury Device Sites: BP Cuff, barber, IV sites, O2 sat monitor, SCD's / venodynes Other Sites: (SPC, IDB) Existing Wounds: Wound 11/05/23 1642 Right;medial;lower leg ulceration, venous (Active) Base epithelialization;closed/resurfaced 11/12/23 1500 Dressing dressing removed;dressing applied;foam 11/12/23 1500 Pressure Injury 11/05/23 0309 coccyx Stage 2 (Active) Pressure Injury Appearance closed/resurfaced 11/12/23 1500 Dressing foam 11/12/23 1500 Nutritional Status Wt Readings from Last 1 Encounters: 11/05/23 87.8 kg (193 lb 9 oz) Body mass index is 30.77 kg/m??. Nutritional Intake Nutrition Diet/Nutrition Received: consistent carb/diabetic diet Diet/Feeding Assistance: none Diet/Feeding Tolerance: good Intake (%): 100% Nutrition Interventions Glycemic Management: blood glucose monitored Current bed: Progressa Assessment: Right leg venous wound is now resurfaced. PATRICK's indicate it continues to be safe to apply compression, continue with Dermafits. Sacral pressure injury is resolved and moisture damage to the buttocks close to resolution. Excellent nursing care provided has most likely contributed to healing. Wound Care Recommendations: Mepilex Border Sacrum dressing to sacrum-Assess beneath the dressing daily and reapply, sealing edges with skin prep. Change every 3 days and PRN: 1. Cleanse skin with dermal wound cleanser. 2. Apply Mepilex Border Sacrum dressing making sure to apply directly against the skin. 3. Seal edges with skin prep. If the Mepilex Border Sacrum needs to be changed more than once a day due to soiling then discontinue and use shield barrier wipes and apply zinc barrier cream to denuded skin Dermafit Size D Remove Dermafit to assess legs for pressure related injury daily. 1. Cleanse leg(s) with Dermal Wound Cleanser, pat dry. 2. Place Dermafit by pulling Dermafit onto leg up to popliteal space, like you would place a sock. (Keep in single layer, preventing bunching behind the knee). 3. Double back Dermafit upon itself, creating a two layer sock. Make sure the top of the second layer is 1 inch below the top of the first layer to allow for a graduated compression at the proximal end. Refer to adult/pediatric pressure ulcer prevention job aid in the clinical policy library highlighting the following points: Mobility: Turn and reposition every 2 hours and document in ED-H. Place a pillow above and below sacral area while in bed to off load pressure to the sacrum Offload pressure from heels by placing pillows lengthwise beneath legs while in bed. Offload pressure from heels by adjusting length of foot of bed. Activity: Implement reminder system for repositioning every two hours while in bed Limit time OOB to the chair to 2 hour intervals. (Including placing bed in chair position, or having HOB higher than 30 degrees) Use a K121 chair cushion beneath patient at all times while in the chair. Reinforce teaching to shift weight every 15 minutes while in the chair. This can be done by shifting weight side to side to off load pressure to ischial tuberosities. Place a pillow at the lumbar spine to off load pressure to the sacral spine. Moisture: Follow a bowel and bladder schedule for incontinence patients and document. Cleanse skin gently after each incontinence episode with Shield Barrier Wipes. Apply Zinc Oxide Protect Paste to denuded perineal skin bid and prn. Assess skin for fungal infections, notify provider. Use disposable air pads with low air loss or fluidized air surfaces to maintain dry skin and prevent fungal infections. Avoid adult diapers except when patient is out of bed to ambulate or in a chair. Place InterDry Ag in a single layer into skin folds, making sure that 2 inches of the fabric extends out beyond the skin fold to the air. Follow up: Wound Care will follow peripherally as an inpatient (will not see weekly) please notify Wound Care if there are issues with the plan of care. Secure chat with: /ABRAHAM/PA: Francis Roberts RN: Please contact PATTY CORNELIUS RN on pager [phone] or the wound care team at [phone] or pager [phone] with skin and wound care concerns or questions. Electronically Signed By: PATTY CORNELIUS RN * Care Management - Elodia Dahl MSW - 11/12/2023 11:56 AM EDTSummarjerrod: VICKI Consult Response Social Work Response to Consult Consult: needs resources due to low income and can't afford glasses etc. Lives alone with minimal social supports. Social Work Response: RESORT HOST re-introduced self, role, and reason for consult to pt. RESORT HOST and pt discussed pt's finances: her monthly social security and SNAP benefits income versus her monthly expenses (rent, electricity, cable, phone, and tv). Pt expressed that when all of her expenses are paid, she has an extra $280 per month. RESORT HOST and pt discussed pt's short and half-way plan for discharge. In the short term, pt will stay with her daughter Beatriz for a bit in [place], [place]. In the half-way, pt will relocate to [place] to be closer to her son Sunil and will likely move into low income housing or the assisted living facility across the street from the housing, whichever is appropriate. RN RONNIE Jania Stout and pt's son Sunil are working on these two options in [place]. Pt expressed that she is okay with both of these plans and that her end goal is to end up in [place]. Pt expressed that at the moment, she is able to pay her bills and put a little bit of money away herberth time to be able to build her savings. Since she is planning on discharging to Beatriz's house then to [place], she denies the need for [place] resources. Follow Up Needed: None at this time. RESORT HOST encouraged pt to reach out should she decide that she doeswant [place] resources or with any questions, concerns, and/or need for support. GERMAN [employer] Supervisor Office of Care Management * Plan of Care - Beth Quarles RN - 11/12/2023 6:36 AM EDT OUTCOME EVALUATION NOTE: OUTCOME SUMMARY: No acute events overnight. A/Ox4. VSS on RA. Urethral and suprapubic catheter draining cloudy/yellow urine. BMx1 overnight. Sliding scale insulin increased d/t elevated BS throughout the day and intothe night. Pt able to rest between care. PLAN MOVING FORWARD: Tx to floor INDIVIDUALIZED FALL PREVENTION INTERVENTIONS: Patient-specific fall risk factors per assessment: [current deficits]: Lines, drains, pain, generalized weakness, altered mental status, medication effects, hospital equipment, and mobility limitations Assistance [level of assistance required for transfers and ambulation]: 2 assist Supervision [direct monitoring required during toileting and ADLs]: Hands on Surveillance [continuous indirect monitoring]: [facility], bed alarm, purposeful rounding, room near nurses station Patient-specific fall prevention interventions for sensory deficits provided, if applicable: [X] Yes CARE PLAN GOAL OUTCOME EVALUATION: Problem: Adult Inpatient Plan of Care Goal: Plan of Care Review Outcome: Ongoing (Interventions Implemented as Appropriate) Goal: Patient-Specific Goal (Individualized) Outcome: Ongoing (Interventions Implemented as Appropriate) Goal: Absence of Hospital-Acquired Illness or Injury Outcome: Ongoing (Interventions Implemented as Appropriate) Goal: Optimal Comfort and Wellbeing Outcome: Ongoing (Interventions Implemented as Appropriate) Goal: Readiness for Transition of Care Outcome: Ongoing (Interventions Implemented as Appropriate) Problem: Fall Injury Risk Goal: Absence of Fall and Fall-Related Injury Outcome: Ongoing (Interventions Implemented as Appropriate) Problem: Diabetes Comorbidity Goal: Blood Glucose Level Within Targeted Range Outcome: Ongoing (Interventions Implemented as Appropriate) Problem: Hypertension Comorbidity Goal: Blood Pressure in Desired Range Outcome: Ongoing (Interventions Implemented as Appropriate) Beth Quarles RN * Plan of Care - Rere Saavedra RN - 11/11/2023 5:48 PM EDT OUTCOME EVALUATION NOTE: OUTCOME SUMMARY: Pt on RA, not endorsing pain, AOx4. Pt up to commode for multiple BM/hr. Sample sent last night, unable to be run by per lab (too solid), soap and water precautions dc per Medicine. Suprapubic cath not flowing, flushed x2 with clear/ cloudy return, wo resistance, team notified. Bladder scan for 905ml, team aware. CT scan performed (see results). Urology consult placed. Straight cath for 800ml. Barber placed per Medicine. Pt glucose high throughout shift, multiple rechecks, team notified, no changes to insulin orders. PLAN MOVING FORWARD: FS Q4 Monitor UO INDIVIDUALIZED FALL PREVENTION INTERVENTIONS: Patient-specific fall risk factors per assessment: [current deficits]: Lines, drains, pain, generalized weakness, altered mental status, medication effects, hospital equipment, mobility limitations. Assistance [level of assistance required for transfers and ambulation]: 2 assist Supervision [direct monitoring required during toileting and ADLs]: Hands on Surveillance [continuous indirect monitoring]: [facility], bed alarm, purposeful rounding, room near nurses station. Patient-specific fall prevention interventions for sensory deficits provided, if applicable: YES CARE PLAN GOAL OUTCOME EVALUATION: Problem: Adult Inpatient Plan of Care Goal: Plan of Care Review Outcome: Ongoing (Interventions Implemented as Appropriate) Goal: Patient-Specific Goal (Individualized) Outcome: Ongoing (Interventions Implemented as Appropriate) Goal: Absence of Hospital-Acquired Illness or Injury Outcome: Ongoing (Interventions Implemented as Appropriate) Goal: Optimal Comfort and Wellbeing Outcome: Ongoing (Interventions Implemented as Appropriate) Goal: Readiness for Transition of Care Outcome: Ongoing (Interventions Implemented as Appropriate) Problem: Fall Injury Risk Goal: Absence of Fall and Fall-Related Injury Outcome: Ongoing (Interventions Implemented as Appropriate) Problem: Diabetes Comorbidity Goal: Blood Glucose Level Within Targeted Range Outcome: Ongoing (Interventions Implemented as Appropriate) Problem: Hypertension Comorbidity Goal: Blood Pressure in Desired Range Outcome: Ongoing (Interventions Implemented as Appropriate) * Consult Note - Vincenzo Plaza MD - 11/11/2023 3:34 PM EDT Images from the original note were not included. UROLOGY CONSULT NOTE Reason for Consultation: obstructed SPT, urinary retention Referring Provider: Francis Roberts MD History of Present Illness: Hope Yee is a 73 y.o. female with a PMH significant for Obesity (BMI30.7), HTN, Afib (on Xeralto), SVT, bradycardia, DM type 2, CKD, chronic indwelling Barber catheter, TIA, who presented to [facility] with bradycardia, hypotension and hyperglycemia now transferring to the ICU with Bradycardia and presumed DKA vs HHS. Urology was consulted for assistance with obstructed SPT and urinary retention. Hope states that she had abdominal trauma causing bladder rupture 8-9 years ago and has been managed with a suprapubic tube since, with routine changes every month (last changed during this admission on 11/05). She was treated for ?UTI with 5 days Cftx earlier this admission.The tube was noted to be draining spontaneously until today when she was found to be retaining 800cc urine on bladder scan. Denies fevers, chills, abdominal pain. CT imaging obtained that demonstrates the tube/balloon appropriately within a dilated bladder. Notably she was straight cath'd x1 per urethra by the SICU RN for ~800cc Past Medical History: Past Medical History: Diagnosis Date Atrial fibrillation Diabetes mellitus GERD (gastroesophageal reflux disease) Hypertension Melanoma in situ s/p removal Rheumatoid arthritis SVT (supraventricular tachycardia) Past Surgical History: Past Surgical History: Procedure Laterality Date SECTION JOINT REPLACEMENT Social History: Social History Socioeconomic History Marital status: Spouse name: None Number of children: None Years of education: None Highest education level: None Occupational History Occupation: Retired Tobacco Use Smoking status: Former Current packs/day: 0.00 Types: Cigarettes Quit date: 06/22/1979 Years since quittin.4 Smokeless tobacco: Never Tobacco comments: per phone call 01/02/2011 Vaping Use Vaping status: Never Used Substance and Sexual Activity Alcohol use: Not Currently Comment: 1 drink every 3-4 months Drug use: Not Currently Comment: Rare use when Arthritis acts up Sexual activity: Not Currently Comment: Deferred Other Topics Concern None Social History Narrative Lives by herself.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 Social Determinants of Health Financial Resource Strain: Not on file Food Insecurity: No Food Insecurity (11/05/2023) Hunger Vital Sign Worried About Running Out of Food in the Last Year: Never true Ran Out of Food in the Last Year: Never true Transportation Needs: No Transportation Needs (11/05/2023) PRAPARE - Transportation Lack of Transportation (Medical): No Lack of Transportation (Non-Medical): No Physical Activity: Not on file Intimate Partner Violence: Not At Risk (11/06/2023) IPV Inpatient Questions Prevent Contact with Others: no Feels Threatened by Someone: no Feels Unsafe at Home: no Physical Signs of Abuse Present: no Housing Stability: Low Risk (11/05/2023) Housing Stability Vital Sign Unable to Pay for Housing in the Last Year: No Number of Places Lived in the Last Year: 1 Unstable Housing in the Last Year: No Family History: Family History Problem Relation Age of Onset Diabetes Mother Heart Disease Mother Multiple Sclerosis Sister Allergies: Allergies Allergen Reactions Trazodone hallucinations Review of Systems: As indicated in HPI, otherwise negative. Physical Exam: Temp: [36.6 ??C (97.9 ??F)-36.9 ??C (98.4 ??F)] Heart Rate: [91-111] Resp: -- BP: (109-142)/(60-105) SpO2: [97 %-99 %] Heart Rate from SpO2: [83 bpm-116 bpm] Physical Exam: General: Awake, alert, NAD Cardiac: RRR, no m/g/r Pulm: CTAB, no adventitial respiratory sounds Abd: Soft, nontender, nondistended : SPT in place to gravity with cloudy urine in bag. Extremities: WWPx4 Neuro: AOx3, moves all extremities to command, conversing appropriately Labs: Recent Labs 11/11/23 0513 11/11/23 0020 11/10/23 0000 11/09/23 0000 WBC 11.0* -- 9.3 9.7* HGB 10.0* -- 9.4* 9.7* PLATELET 431* -- 401* 391* NA -- 133* 134* 135 K -- 4.9 4.6 4.5 CL -- 99 100 102 CO2 -- BUN -- 22* 21* 17 CREATININE -- 1.18 0.95 0.86 CALCIUM -- 9.9 9.4 8.8 MAGNESIUM -- 0.71 0.63* 0.68* Kidney function Recent Labs 11/11/23 0020 11/10/23 0000 11/09/23 0000 BUN 22* 21* 17 CREATININE 1.18 0.95 0.86 Estimated Creatinine Clearance: 46.4 mL/min (by Cockcroft-Gault based on SCr of 1.18 mg/dL). Imaging: Non-con CT A/P 11/11/23. IMPRESSION Appropriate position of the suprapubic catheter, however, persistent moderate bladder distention. Possible catheter obstruction/clog; correlate with ability to flush catheter. The overall appearance is similar to 2021 when the catheter was in appropriate position and the bladder was distended. Assessment: Hope Yee is a 73 y.o. female with a PMH significant for Obesity (BMI30.7), HTN, Afib (on Xeralto), SVT, bradycardia, DM type 2, CKD, chronic indwelling Barber catheter, TIA, who presented to [facility] with bradycardia, hypotension and hyperglycemia now transferring to the ICU with Bradycardia and presumed DKA vs HHS. Urology was consulted for assistance with obstructed SPT and urinary retention. The tube appears to be in appropriate position on imaging. The tube was irrigated with saline and cloudy urine was withdrawn via kike syringe. Unclear why she was obstructed earlier but would benefit from catheter exchange. Recommendations: - We will perform SPT exchange on 11/12/23 This patient has been discussed with Dr. Hyman, Urology Attending. x Consult service will continue to follow patient. Recommendations are above, please page if further consultation required. Vincenzo Plaza MD Urology PGY-2 Daytime Consult Pager #[phone] * Care Management - Sunshine Stout RN - 11/11/2023 10:04 AM EDT OFFICE OF CARE MANAGEMENT PROGRESS NOTE LOS: Hospital Day 6 days Chart reviewed, care reviewed with primary team and at interdisciplinary rounds. Patient continues to meet inpatient level of care related to: Patient with pending stool sample for rule out c-diff, new MELVA, and suprapubic cath was plugged. Decision Maker: Self Functional status prior to admission: Assistive Equipment Home Environment: Others in the home: pet(s). Current Living Arrangements: home/apartment/condo. Accessibility Concerns: Pt lives in 3rd floor apartment with elevator access and no NIKI. Current Functional Ability: *2 assist DME used at home: (Pt uses a walker outside, a cane inside, and has shower bars) DME Needed at Discharge: No Patient is insured through: Primary Insurance: [facility] Payor: [facility] / Plan: [facility]IC[facility] / Product Type: *No Product type* / Secondary Insurance: MEDICAID [place] Last Physical Therapy Recommendation: home with daily check in, home with home health (phone call check in from family) with None (plans to use [facility]) Last Occupational Therapy Recommendation: swing bed rehabilitation facility (vs. home to children'oren with home health services.) with walker, front wheeled, shower chair Plan for discharge is: Home w/ Services Outpatient Agency/Support Group Needs: None Agency Referrals: Not Applicable - patient will be going to her daughters at time of discharge. Transportation: health plan transportation Barriers to discharge: Discharge planning Plan going forward: Patient will be able to go to her daughter Beatriz's home at time of discharge. Son is looking into low in come housing at [facility] in [facility]. Reached out to Patric at ext [phone] to speak to him about the chance of getting her an apt. Care Management will continue to follow and assist with discharge planning and coordination of care as indicated. Anticipated Date of Discharge: 11/16/2023 Sunshine MACSORRO, RN CM Phone: [phone] Pager: [phone] * Plan of Care - Kimberly Weaver RN - 11/11/2023 5:55 AM EDT OUTCOME EVALUATION NOTE: OUTCOME SUMMARY: Pt had multiple lose bm over the coarse of the night, cbc sent which showed increase in WBC, Cdiff rule out ordered, stool sample sent. Suprapubic catheter stopped working, per pt she said that this happens sometimes, and it usually fixes itself, team made aware. Pt able to pee via urethra when catheter not working. Pt able to rest b/t care. PLAN MOVING FORWARD: C diff rule out Maintain contact precautions INDIVIDUALIZED FALL PREVENTION INTERVENTIONS: Patient-specific fall risk factors per assessment: [current deficits]: ICU environment Assistance [level of assistance required for transfers and ambulation]: x1 assist Supervision [direct monitoring required during toileting and ADLs]: eyes on Surveillance [continuous indirect monitoring]: purposeful hourly rounding Patient-specific fall prevention interventions for sensory deficits provided, if applicable: [X] N/A CPG GOAL OUTCOME EVALUATION: Problem: Adult Inpatient Plan of Care Goal: Plan of Care Review Outcome: Ongoing (Interventions Implemented as Appropriate) Goal: Patient-Specific Goal (Individualized) Outcome: Ongoing (Interventions Implemented as Appropriate) Goal: Absence of Hospital-Acquired Illness or Injury Outcome: Ongoing (Interventions Implemented as Appropriate) Goal: Optimal Comfort and Wellbeing Outcome: Ongoing (Interventions Implemented as Appropriate) Goal: Readiness for Transition of Care Outcome: Ongoing (Interventions Implemented as Appropriate) Problem: Fall Injury Risk Goal: Absence of Fall and Fall-Related Injury Outcome: Ongoing (Interventions Implemented as Appropriate) Problem: Diabetes Comorbidity Goal: Blood Glucose Level Within Targeted Range Outcome: Ongoing (Interventions Implemented as Appropriate) Problem: Hypertension Comorbidity Goal: Blood Pressure in Desired Range Outcome: Ongoing (Interventions Implemented as Appropriate) * Plan of Care - Kimberly Weaver RN - 11/10/2023 4:53 AM EDT OUTCOME EVALUATION NOTE: OUTCOME SUMMARY: BM x1. Mag replaced, see mar. Pt able to rest b/t care. PLAN MOVING FORWARD: Q4 FS Discharge to rehab Side to side turns INDIVIDUALIZED FALL PREVENTION INTERVENTIONS: Patient-specific fall risk factors per assessment: [current deficits]: ICU environment Assistance [level of assistance required for transfers and ambulation]: x1 assist Supervision [direct monitoring required during toileting and ADLs]: eyes on Surveillance [continuous indirect monitoring]: purposeful hourly rounding Patient-specific fall prevention interventions for sensory deficits provided, if applicable: [X] N/A CPG GOAL OUTCOME EVALUATION: Problem: Adult Inpatient Plan of Care Goal: Plan of Care Review Outcome: Ongoing (Interventions Implemented as Appropriate) Goal: Patient-Specific Goal (Individualized) Outcome: Ongoing (Interventions Implemented as Appropriate) Goal: Absence of Hospital-Acquired Illness or Injury Outcome: Ongoing (Interventions Implemented as Appropriate) Goal: Optimal Comfort and Wellbeing Outcome: Ongoing (Interventions Implemented as Appropriate) Goal: Readiness for Transition of Care Outcome: Ongoing (Interventions Implemented as Appropriate) Problem: Fall Injury Risk Goal: Absence of Fall and Fall-Related Injury Outcome: Ongoing (Interventions Implemented as Appropriate) Problem: Diabetes Comorbidity Goal: Blood Glucose Level Within Targeted Range Outcome: Ongoing (Interventions Implemented as Appropriate) Problem: Hypertension Comorbidity Goal: Blood Pressure in Desired Range Outcome: Ongoing (Interventions Implemented as Appropriate) * Plan of Care - Leslie Carcamo RN - 11/09/2023 5:44 PM EDT Pt. A+O x4; follows x4. Afib. RA once awake. Suprapubic cath patent and draining. Side to side turns continued. Up to chair x1. PLAN MOVING FORWARD: Side to side turns Q4 BG Patient-specific fall risk factors per assessment: [current deficits]: bed in low position, call puckett within reach, side rails raised, room near nursing station, frequent purposeful rounding Assistance [level of assistance required for transfers and ambulation]: dependent, 2 assist Supervision [direct monitoring required during toileting and ADLs]: Direct Surveillance [continuous indirect monitoring]: telemetry, pulse oximetry, apnea Patient-specific fall prevention interventions for sensory deficits provided, if applicable: yes Problem: Adult Inpatient Plan of Care Goal: Plan of Care Review Outcome: Ongoing (Interventions Implemented as Appropriate) Goal: Absence of Hospital-Acquired Illness or Injury Outcome: Ongoing (Interventions Implemented as Appropriate) Goal: Optimal Comfort and Wellbeing Outcome: Ongoing (Interventions Implemented as Appropriate) Goal: Readiness for Transition of Care Outcome: Ongoing (Interventions Implemented as Appropriate) * Care Management - Sunshine Stout RN - 11/09/2023 1:11 PM EDT OFFICE OF CARE MANAGEMENT PROGRESS NOTE LOS: Hospital Day 4 days Chart reviewed, care reviewed with primary team and at interdisciplinary rounds. Patient continues to meet inpatient level of care related to: Close monitoring of BG, will need to work with PT/OT. Decision Maker: Self Functional status prior to admission: Assistive Equipment Home Environment: Others in the home: pet(s). Current Living Arrangements: home/apartment/condo. Accessibility Concerns: Pt lives in 3rd floor apartment with elevator access and no NIKI. Current Functional Ability: *2 assist DME used at home: (Pt uses a walker outside, a cane inside, and has shower bars) DME Needed at Discharge: No Patient is insured through: Primary Insurance: [facility] Payor: [facility] / Plan: [facility] MEDICARE / Product Type: *No Product type* / Secondary Insurance: MEDICAID [place] Plan for discharge is: Pending Hospital Course and PT/OT Recommendations Outpatient Agency/Support Group Needs: None Agency Referrals: Not Applicable Transportation: health plan transportation Barriers to discharge: Discharge planning Plan going forward: Patient will need to work with PT/OT to determine next level of care. Care Management will continue to follow and assist with discharge planning and coordination of care as indicated. Anticipated Date of Discharge: 11/10/2023 Sunshine MASCORRO RN Phone: [phone] Pager: [phone] * Plan of Care - Kimberly Weaver RN - 11/09/2023 5:07 AM EDT OUTCOME EVALUATION NOTE: OUTCOME SUMMARY: Pt BG at 2200 was 412, team made aware, pt switched back to q4 FS. Pt able to rest b/t care. PLAN MOVING FORWARD: Q4 BG Side to side turns only INDIVIDUALIZED FALL PREVENTION INTERVENTIONS: Patient-specific fall risk factors per assessment: [current deficits]: ICU environment Assistance [level of assistance required for transfers and ambulation]: x1 assist Supervision [direct monitoring required during toileting and ADLs]: eyes on Surveillance [continuous indirect monitoring]: purposeful hourly rounding Patient-specific fall prevention interventions for sensory deficits provided, if applicable: [X] N/A CPG GOAL OUTCOME EVALUATION: Problem: Adult Inpatient Plan of Care Goal: Plan of Care Review Outcome: Ongoing (Interventions Implemented as Appropriate) Goal: Patient-Specific Goal (Individualized) Outcome: Ongoing (Interventions Implemented as Appropriate) Goal: Absence of Hospital-Acquired Illness or Injury Outcome: Ongoing (Interventions Implemented as Appropriate) Goal: Optimal Comfort and Wellbeing Outcome: Ongoing (Interventions Implemented as Appropriate) Goal: Readiness for Transition of Care Outcome: Ongoing (Interventions Implemented as Appropriate) Problem: Fall Injury Risk Goal: Absence of Fall and Fall-Related Injury Outcome: Ongoing (Interventions Implemented as Appropriate) Problem: Diabetes Comorbidity Goal: Blood Glucose Level Within Targeted Range Outcome: Ongoing (Interventions Implemented as Appropriate) Problem: Hypertension Comorbidity Goal: Blood Pressure in Desired Range Outcome: Ongoing (Interventions Implemented as Appropriate) * Plan of Care - Michelle Martinez RN - 11/08/2023 3:37 PM EDT Hope has had a good day. Back and forth from bed to chair multiple times. When in bed she will beturned to her side but will instantly scoot her bottom off the pillows. She is aware that she needsto be offloading her bottom but still does it. The pressure sore on her sacrum is healing well and Mepilex was changed. The other sore on her bottom is healing as well. New Mepilex applied there as well however, stool keeps getting up under the dressing so it was removed and zinc oxide applied Bothcompression socks were removed and the Mepilex on her RLE was changed. This wound is granulating but more slowly and tends to be more wet then her other wounds. Legs moisturized after wound redressedand compression sleeves reapplied. She has periods of apnea when sleeping that causes her O2 Sat to drop to mid/low 80s. 1L NC keeps her at 99%. I took her for a walk using her walker. She was able to do 40 feet with noted HR increaseto the 160s (asymptomatic) and increase in tiredness. She did great though and had a good nap after. At dinner Hope started choking on a piece of lettuce. Multiple staff in to assist. Other than herHR going into the 180's, she maintained her oxygen levels and was able to cough up the lettuce on her own. Problem: Adult Inpatient Plan of Care Goal: Plan of Care Review Outcome: Ongoing (Interventions Implemented as Appropriate) Goal: Patient-Specific Goal (Individualized) Outcome: Ongoing (Interventions Implemented as Appropriate) Goal: Absence of Hospital-Acquired Illness or Injury Outcome: Ongoing (Interventions Implemented as Appropriate) Goal: Optimal Comfort and Wellbeing Outcome: Ongoing (Interventions Implemented as Appropriate) Problem: Diabetes Comorbidity Goal: Blood Glucose Level Within Targeted Range Outcome: Ongoing (Interventions Implemented as Appropriate) * Consult Note - Alex Blackburn MD - 11/08/2023 8:35 AM EDT Images from the original note were not included. Inpatient Cardiac Electrophysiology Consult Note Date of Consultation: 11/08/2023 Admit Date: 11/05/2023 Place of Service: [facility] Responsible Attending: Dr. Morro Roberts Reason for Consult: We are seeing Hope Yee at the request of Dr. Roberts for the evaluationof atrial fibrillation. I have reviewed the available records, interviewed and examined the patient. Active Problem List: Active Hospital Problems Diagnosis DKA (diabetic ketoacidosis) Resolved Hospital Problems No resolved problems to display. History of Present Illness: Hope Yee is a 73 y.o. woman, admitted in transfer from [facility] on 516, for evaluation and treatment of DKA, bradycardia and hypotension. She had initially presented at [facility] for evaluation of diarrhea and fatigue. On presentation she was noted to be bradycardic with a heart rate of 30 to 40s, hypotensive and with a blood glucose level that was too high to read. Initial serum potassium was 6.8, with a creatinine of 2.0, and anion gap of 14, elevated transaminases, and with a normal troponin. Her initial temperature was 35.3, WBCs 11.5 and she was treated empirically with 2 g of IV ceftriaxone for suspected UTI. Her hyperkalemia was acutely treated with calcium gluconate, IV insulin, IV hydration and albuterol. She received 2 doses of IV atropine 0.5 mg without improvement and a transvenous pacing wire was placed, and she was transferred to for additional evaluation and treatment. Her HR improved and her pacing wire was removed. Note: EKG with bradycardia on transfer is read as sinus with HB however it is actually atrial fibrillation with slow ventricular response. Significant history includes persistent atrial fibrillation (which on review of EKGs Holter and ZIO appears to be permanent), SVT, DM type II, hypertension, previous TIA, suprapubic catheter, hyperlipidemia and obesity (BMI 30.8). Her home cardiac medications include metoprolol succinate 100 mg daily, diltiazem 120 mg daily and anticoagulation with rivaroxaban. Review of Systems Constitutional: Positive for fatigue. Negative for chills, diaphoresis and fever. Respiratory: Negative for chest tightness. Neurological: Negative for syncope and light-headedness. PMH: Past Medical History: Diagnosis Date Atrial fibrillation Diabetes mellitus GERD (gastroesophageal reflux disease) Hypertension Melanoma in situ s/p removal Rheumatoid arthritis SVT (supraventricular tachycardia) Pertinent Medications: Current Facility-Administered Medications Ordered in [facility] Medication Dose Route Frequency Provider Last Rate Last Admin sodium zirconium cyclosilicate (Lokelma) oral powder packet 10 g 10 g Oral Daily Francis Roberts MD glucose (Glutose) 40% oral geL 15-30 g of glucose Buccal Q15 Min PRN Sammy Bose MD Or dextrose 10% infusion 250 mL Intravenous Q15 Min PRN Sammy Bose MD Or glucagon (Glucagen) (1 mg/mL) injection solution 1 mg 1 mg Intramuscular Q15 Min PRN Sammy Bose MD insulin lispro (HumaLOG;Admelog) (100 unit/mL) subcutaneous injection vial 0-8 Units 0-8 Units Subcutaneous TID Sammy Bose MD 4 Units at 11/07/23 1742 insulin glargine-ygfn (Semglee) (100 unit/mL) subcutaneous injection vial 23 Units 23 Units Subcutaneous Daily Zoe Cleveland APRN 23 Units at 11/07/23 0836 insulin lispro (HumaLOG;Admelog) (100 unit/mL) subcutaneous injection vial 1-6 Units 1-6 Units Subcutaneous Q4H [facility] Zoe Cleveland, PSYCHOLOGICAL OPERATIONS SPECIALIST 1 Units at 11/07/23 1929 metoproloL tartrate (Lopressor) tablet 25 mg 25 mg Oral Q6H [facility] Darlyn Flores MD 25 mg at 11/08/23 0626 sodium chloride 0.9 % (flush) (BD PosiFlush Normal Saline 0.9) flush 5 mL 5 mL Intravenous BID Ivy Peres MD 5 mL at 11/07/23 2034 sodium chloride 0.9 % (flush) (BD PosiFlush Normal Saline 0.9) flush 5-20 mL 5- 20 mL Intravenous Q1Min PRN Ivy Peres MD lidocaine (Xylocaine) 1% (10 mg/mL) injection 3 mg 0.3 mL Subcutaneous Once PRN Ivy Peres MD cefTRIAXone (Rocephin) 2 g vial attach to sodium chloride 0.9% 50 mL Mini-Bag Plus 2 g Intravenous Q24H Ivy Peres MD Stopped at 11/08/23 0656 rivaroxaban (Xarelto) tablet 20 mg 20 mg Oral Daily with dinner Ivy Peres MD 20 mg at 11/07/23 1739 No current [facility]-ordered outpatient medications on file. Family History: Family History Problem Relation Age of Onset Diabetes Mother Heart Disease Mother Multiple Sclerosis Sister Social History: Social History Socioeconomic History Marital status: Spouse name: Not on file Number of children: Not on file Years of education: Not on file Highest education level: Not on file Occupational History Occupation: Retired Tobacco Use Smoking status: Former Current packs/day: 0.00 Types: Cigarettes Quit date: 06/22/1979 Years since quittin.4 Smokeless tobacco: Never Tobacco comments: per phone call 01/02/2011 Vaping Use Vaping status: Never Used Substance and Sexual Activity Alcohol use: Not Currently Comment: 1 drink every 3-4 months Drug use: Not Currently Comment: Rare use when Arthritis acts up Sexual activity: Not Currently Comment: Deferred Other Topics Concern Not on file Social History Narrative Lives by herself.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 Social Determinants of Health Financial Resource Strain: Not on file Food Insecurity: No Food Insecurity (11/05/2023) Hunger Vital Sign Worried About Running Out of Food in the Last Year: Never true Ran Out of Food in the Last Year: Never true Transportation Needs: No Transportation Needs (11/05/2023) PRAPARE - Transportation Lack of Transportation (Medical): No Lack of Transportation (Non-Medical): No Physical Activity: Not on file Intimate Partner Violence: Not At Risk (11/06/2023) IPV Inpatient Questions Prevent Contact with Others: no Feels Threatened by Someone: no Feels Unsafe at Home: no Physical Signs of Abuse Present: no Housing Stability: Low Risk (11/05/2023) Housing Stability Vital Sign Unable to Pay for Housing in the Last Year: No Number of Places Lived in the Last Year: 1 Unstable Housing in the Last Year: No Physical Exam: Vital signs: Last value Range last 12 hrs Temperature Temp: 36.9 ??C (98.4 ??F) Temp: [36.9 ??C (98.4 ??F)] Heart Rate Heart Rate: (!) 131 Heart Rate: [104-131] Blood Pressure BP: 127/86 BP: (127-144)/(86-96) Respiratory Rate Resp: 13 Resp: [13-19] SpO2 SpO2: 98 % SpO2: [95 %-98 %] Physical Exam Vitals and nursing note reviewed. Constitutional: Appearance: She is ill-appearing. Cardiovascular: Rate and Rhythm: Tachycardia present. Rhythm irregularly irregular. Pulses: Normal pulses. Heart sounds: Normal heart sounds. Pulmonary: Effort: Pulmonary effort is normal. Breath sounds: Normal breath sounds. Genitourinary: Comments: Suprapubic catheter in place Musculoskeletal: General: Normal range of motion. Skin: General: Skin is warm and dry. Comments: Sacral and lower extremity skin reddening and mild breakdown Neurological: General: No focal deficit present. Mental Status: She is alert and oriented to person, place, and time. Labs: Recent Results (from the past 24 hour(s)) POCT Glucose Result Value Ref Range POC Glucose 167 65 - 199 mg/dL Green Tube HOLD Result Value Ref Range Green Hold Sample in lab. POCT Glucose Result Value Ref Range POC Glucose 176 65 - 199 mg/dL POCT Glucose Result Value Ref Range POC Glucose 153 65 - 199 mg/dL POCT Glucose Result Value Ref Range POC Glucose 188 65 - 199 mg/dL Basic Metabolic Panel (non-fasting) Result Value Ref Range Glucose Lvl 102 65 - 199 mg/dL BUN 11 8 - 18 mg/dL Creatinine 0.76 0.70 - 1.20 mg/dL Sodium 137 135 - 145 mmol/L Potassium 4.3 3.5 - 5.0 mmol/L Chloride 103 98 - 107 mmol/L CO2 25 22 - 31 mmol/L Anion Gap 9 5 - 15 mmol/L Calcium 8.5 8.5 - 10.5 mg/dL Estimated GFR 82 >=60 mL/min/1.73 m?? Magnesium Result Value Ref Range Magnesium 0.71 0.69 - 1.07 mmol/L POCT Glucose Result Value Ref Range POC Glucose 99 65 - 199 mg/dL Hemogram Result Value Ref Range WBC 10.7 (H) 4.0 - 9.5 x10(3)/mcL RBC 4.34 4.00 - 5.21 x10(6)/mcL Hemoglobin 10.1 (L) 11.7 - 15.5 g/dL Hematocrit 33.6 (L) 35.7 - 45.8 % MCV 77.4 (L) 82.6 - 94.4 fL MCH 23.3 (L) 27.1 - 32.0 pg MCHC 30.1 (L) 31.7 - 35.0 g/dL Platelets 389 (H) 145 - 357 x10(3)/mcL RDWSD 52.9 (H) 37.0 - 46.0 fL RDWCV 18.9 (H) 11.5 - 14.1 % MPV 10.2 7.6 - 12.9 fL nRBC % Auto 0.0 % nRBC Abs Auto 0.000 0.000 - 0.000 x10(3)/mcL Differential, Automated Result Value Ref Range Neutrophils % 67.2 % Neutr Abs (ANC) 7.18 (H) 1.70 - 6.10 x10(3)/mcL Lymphocytes % 16.9 % Lymphocytes Abs 1.8 0.9 - 3.2 x10(3)/mcL Monocytes % 12.9 % Monocyte Abs 1.4 (H) 0.3 - 0.9 x10(3)/mcL Eosinophils % 2.1 % Eosinophils Abs 0.2 0.0 - 0.4 x10(3)/mcL Basophils % 0.5 % Basophils Abs 0.0 0.0 - 0.1 x10(3)/mcL Immature Gran % 0.40 % Haley Gran Abs 0.04 0.00 - 0.04 x10(3)/mcL POCT Glucose Result Value Ref Range POC Glucose 108 65 - 199 mg/dL POCT Glucose Result Value Ref Range POC Glucose 126 65 - 199 mg/dL Pertinent Radiographic/Diagnostic Results: 12 lead EK11/05/2023 12 lead EKG: [facility] 07/30/2021 atrial fibrillation 01/05/2022 atrial fibrillation 12/30/2022 atrial fibrillation 04/23/2023 atrial fibrillation 05/12/2023 atrial fibrillation Telemetry: 11/06/2023 @ 1233 Echocardiogram: 11/05/2023 Normal left ventricular size with hyperdynamic systolic function. Ejection fraction is visually 70%. There are no regional wall motion abnormalities. The right ventricle is mildly dilated with normal systolic function. LA mildly dilated. There is no significant valvular disease. Compared to prior echo from 01/08/18, there are no major changes. Zio: 01/11/2018 Duration: 1 days 10 hours (after removal of ~52 hours of artifact) Indication: Bradycardia The overall heart rate range was 55-171/minute, and averaged 92/minute. The predominant underlying rhythm throughout the monitoring period was conducted atrial fibrillation. Artifact and the limited duration of recording interfered with the assessment for diurnal variation of heart rate and heart rate variation. No pauses >3 seconds were seen. 48 hr Holter: 11/27/2020 100% AF; no sustained bradycardia; upper rates to 140 Assessment: Hope Yee is a 73 y.o. woman admitted in transfer on 11/04 with acute DKA, bradycardia and hypotension. Her hyperglycemia was aggressively treated and her home beta alicia and calcium channel blockers were held. Her heart rates and blood pressure subsequently improved. Recent systolic blood pressures are 130s to 140s with heart rates from 90-140. Metoprolol tartrate has been reintroduced at 25 mg p.o. every 6 H. She remains anticoagulated with rivaroxaban. It is not completely clear whether this may have been briefly interrupted. Updated echocardiogram reveals LVEF of 70% with a mildly dilated left atrium and no significant valvular disease. I was able to review twelve-lead EKGs and ambulatory monitor data directly from the [facility] portal. There are a number of studies dating back to 2018, all of which demonstrate atrial fibrillation with rates from 50-140 without sustained bradycardia. Despite only a mildly dilated left atrium, I suspect her atrial fibrillation is now permanent. I believe it would be futile to attempt cardioversion without an antiarrhythmic. She currently has a transaminitis and I would not favor amiodarone. It seems most likely that her bradycardic events are related to her comorbid DKA and hyperkalemia. Reintroduction of beta-alicia has moderated but not yet achieved excellent rate control. As she continues to have good blood pressure and has a preserved LVEF, it would be reasonable to continue to uptitrate her beta-alicia to 50mg p.o. every 6 H, and if insufficient then reintroduce diltiazem. If she indeed develops recurrent profound sustained bradycardia, permanent pacing could be considered. She is at extremely high risk for infection given her history of diabetes, current/recent UTI, chronic suprapubic catheter and existing sacral and leg lesions. If pacing were considered, a leadless Medtronic Micra would be most appropriate(permanent AF). Plan: #1 continue up titration of metoprolol to tartrate from 25 mg to 50 mg every 6h #2 If rate control is inadequate with persistent heart rate greater than 100 bpm, would reintroduce diltiazem 120 mg daily #3 current blood pressures appear adequate to tolerate increased beta-alicia or calcium channel alicia, however if hypotension occurs, could consider using digoxin #4 if adequate rate control is achieved, would defer permanent pacing at this time and continue with rate control strategy Consult service will continue to follow patient. Provider: KATHLEEN Beard EP Consult attending physician: Estee Blackburn MD EP Consult positional pager #[phone](EPMD) EP Device interrogation positional pager # [phone] I met with the patient today and independently confirmed the history, physical exam, and testing. Ipersonally reviewed and interpreted the available ECGs and additional cardiac testing (echo), as well as the labs. I agree with the detailed management plan as written in the PA note today. I discussed this plan with the patient, who is also in agreement. These notes are in addition to the history, exam and plan that I reviewed in detail, listed above: Ms. Yee presents with transient, symptomatic bradycardia in the setting of renal failure, metabolic disarray, hyperkalemia. She has not, to my knowledge, had documented symptomatic bradycardia in the past. She is at high risk for pacemaker infection, if this were pursued in the future. She prefers to avoid pacemaker implantation if possible. For now, I recommend cautious rate control of whatis likely permanent atrial fibrillation. Goal heart rate is <110 bpm at rest. This can be achieved with beta and calcium channel blockers. Pacemaker implantation is not recommended at this time but can be considered in the future if symptomatic bradycardia recurs. She should follow up with her primary doctor and with EP as needed. EP will sign off at this time. Dr. Alex Blackburn, electrophysiology attending ([id number]) * Plan of Care - Rema Cedeno RN - 11/08/2023 6:52 AM EDT OUTCOME EVALUATION NOTE: OUTCOME SUMMARY: Q2 side to side turns maintained, pt educated on not shifting herself off pillows to help her sacral wound heal. BM x2 overnight. PLAN MOVING FORWARD: Q4 vitals Q4 I/Os Q4 BG Q2 side to side turns Discharge planning PT/OT? INDIVIDUALIZED FALL PREVENTION INTERVENTIONS: Patient-specific fall risk factors per assessment: [current deficits]: Hospital environment, lines/drains, weakness, medications Assistance [level of assistance required for transfers and ambulation]: 2 assist Supervision [direct monitoring required during toileting and ADLs]: Moderate assistance Surveillance [continuous indirect monitoring]: Pulse oximetry, telemetry, call light in reach, bed alarm set, room near nurses station, frequent rounding CARE PLAN GOAL OUTCOME EVALUATION: Problem: Adult Inpatient Plan of Care Goal: Plan of Care Review Outcome: Ongoing (Interventions Implemented as Appropriate) Goal: Patient-Specific Goal (Individualized) Outcome: Ongoing (Interventions Implemented as Appropriate) Goal: Absence of Hospital-Acquired Illness or Injury Outcome: Ongoing (Interventions Implemented as Appropriate) Goal: Optimal Comfort and Wellbeing Outcome: Ongoing (Interventions Implemented as Appropriate) Goal: Readiness for Transition of Care Outcome: Ongoing (Interventions Implemented as Appropriate) Problem: Fall Injury Risk Goal: Absence of Fall and Fall-Related Injury Outcome: Ongoing (Interventions Implemented as Appropriate) Problem: Diabetes Comorbidity Goal: Blood Glucose Level Within Targeted Range Outcome: Ongoing (Interventions Implemented as Appropriate) Problem: Hypertension Comorbidity Goal: Blood Pressure in Desired Range Outcome: Ongoing (Interventions Implemented as Appropriate) * Plan of Care - Leslie Carcamo RN - 11/07/2023 6:10 PM EDT OUTCOME SUMMARY: Pt. A+O x4; follows x4. Afib. RA once awake. Suprapubic cath patent and draining with some new red tinged output. Team was made aware. Side to side turns continued- Pt. Self adjusts back onto rear end despite education. PLAN MOVING FORWARD: Side to side turns Q4 BG Patient-specific fall risk factors per assessment: [current deficits]: bed in low position, call puckett within reach, side rails raised, room near nursing station, frequent purposeful rounding Assistance [level of assistance required for transfers and ambulation]: dependent, 2 assist Supervision [direct monitoring required during toileting and ADLs]: Direct Surveillance [continuous indirect monitoring]: telemetry, pulse oximetry, apnea Patient-specific fall prevention interventions for sensory deficits provided, if applicable: yes Problem: Adult Inpatient Plan of Care Goal: Plan of Care Review Outcome: Ongoing (Interventions Implemented as Appropriate) Goal: Absence of Hospital-Acquired Illness or Injury Outcome: Ongoing (Interventions Implemented as Appropriate) Goal: Optimal Comfort and Wellbeing Outcome: Ongoing (Interventions Implemented as Appropriate) Goal: Readiness for Transition of Care Outcome: Ongoing (Interventions Implemented as Appropriate) * Plan of Care - Rema Cedeno RN - 11/07/2023 6:35 AM EDT OUTCOME EVALUATION NOTE: OUTCOME SUMMARY: Mg+ replaced. Q2 side to side turns maintain. PLAN MOVING FORWARD: Q4 vitals Q4 I/Os Q4 BG Q8 BMP Q2 side to side turns Discharge planning PT/OT? INDIVIDUALIZED FALL PREVENTION INTERVENTIONS: Patient-specific fall risk factors per assessment: [current deficits]: Hospital environment, lines/drains, weakness, medications Assistance [level of assistance required for transfers and ambulation]: 2 assist Supervision [direct monitoring required during toileting and ADLs]: Moderate assistance Surveillance [continuous indirect monitoring]: Pulse oximetry, telemetry, call light in reach, bed alarm set, room near nurses station, frequent rounding CARE PLAN GOAL OUTCOME EVALUATION: Problem: Adult Inpatient Plan of Care Goal: Plan of Care Review Outcome: Ongoing (Interventions Implemented as Appropriate) Goal: Patient-Specific Goal (Individualized) Outcome: Ongoing (Interventions Implemented as Appropriate) Goal: Absence of Hospital-Acquired Illness or Injury Outcome: Ongoing (Interventions Implemented as Appropriate) Goal: Optimal Comfort and Wellbeing Outcome: Ongoing (Interventions Implemented as Appropriate) Goal: Readiness for Transition of Care Outcome: Ongoing (Interventions Implemented as Appropriate) Problem: Fall Injury Risk Goal: Absence of Fall and Fall-Related Injury Outcome: Ongoing (Interventions Implemented as Appropriate) Problem: Diabetes Comorbidity Goal: Blood Glucose Level Within Targeted Range Outcome: Ongoing (Interventions Implemented as Appropriate) Problem: Hypertension Comorbidity Goal: Blood Pressure in Desired Range Outcome: Ongoing (Interventions Implemented as Appropriate) * Plan of Care - Sun Aviles RN - 11/06/2023 6:21 PM EDT OUTCOME EVALUATION NOTE: OUTCOME SUMMARY: Pt A/O x4, able to follow commands. Pt on RA - 2L NC. Pt afib RVR 90s-140s, team aware, MAP >65.Pt suprapubic catheter leaking & causing wound irritation/ burning despite pt repositioning, catheter repositioning, balloon check; team aware & catheter exchanged. Pt AUOP & BM x2. Pt OOB to chair with x1 assist. PLAN MOVING FORWARD: Q4 VS, I/O & FS AM Labs INDIVIDUALIZED FALL PREVENTION INTERVENTIONS: Patient-specific fall risk factors per assessment: [current deficits]: generalized weakness Assistance [level of assistance required for transfers and ambulation]: x1 assist Supervision [direct monitoring required during toileting and ADLs]: x1 assist Surveillance [continuous indirect monitoring]: telemetry & pulse-ox Patient-specific fall prevention interventions for sensory deficits provided, if applicable: [X] No CARE PLAN GOAL OUTCOME EVALUATION: Problem: Adult Inpatient Plan of Care Goal: Plan of Care Review Outcome: Ongoing (Interventions Implemented as Appropriate) Goal: Patient-Specific Goal (Individualized) Outcome: Ongoing (Interventions Implemented as Appropriate) Goal: Absence of Hospital-Acquired Illness or Injury Outcome: Ongoing (Interventions Implemented as Appropriate) Goal: Optimal Comfort and Wellbeing Outcome: Ongoing (Interventions Implemented as Appropriate) Goal: Readiness for Transition of Care Outcome: Ongoing (Interventions Implemented as Appropriate) Problem: Fall Injury Risk Goal: Absence of Fall and Fall-Related Injury Outcome: Ongoing (Interventions Implemented as Appropriate) Problem: Diabetes Comorbidity Goal: Blood Glucose Level Within Targeted Range Outcome: Ongoing (Interventions Implemented as Appropriate) * Plan of Care - Rema Cedeno RN - 11/06/2023 6:45 AM EDT OUTCOME EVALUATION NOTE: OUTCOME SUMMARY: BG 254 @ 2015, insulin gtt restarted per medicine team, titrated throughout shift per protocol, seeflowsheets, gtt off at 0315, sliding scale insulin ordered by team. Q2 side to side turns continued. PLAN MOVING FORWARD: Q4 vitals Q4 I/Os Q4 BG Q8 BMP Q2 side to side turns Discharge planning PT/OT? INDIVIDUALIZED FALL PREVENTION INTERVENTIONS: Patient-specific fall risk factors per assessment: [current deficits]: Hospital environment, lines/drains, weakness, medications Assistance [level of assistance required for transfers and ambulation]: 2 assist Supervision [direct monitoring required during toileting and ADLs]: Moderate assistance Surveillance [continuous indirect monitoring]: Pulse oximetry, telemetry, call light in reach, bed alarm set, room near nurses station, frequent rounding CARE PLAN GOAL OUTCOME EVALUATION: Problem: Adult Inpatient Plan of Care Goal: Plan of Care Review Outcome: Ongoing (Interventions Implemented as Appropriate) Goal: Patient-Specific Goal (Individualized) Outcome: Ongoing (Interventions Implemented as Appropriate) Goal: Absence of Hospital-Acquired Illness or Injury Outcome: Ongoing (Interventions Implemented as Appropriate) Goal: Optimal Comfort and Wellbeing Outcome: Ongoing (Interventions Implemented as Appropriate) Goal: Readiness for Transition of Care Outcome: Ongoing (Interventions Implemented as Appropriate) Problem: Fall Injury Risk Goal: Absence of Fall and Fall-Related Injury Outcome: Ongoing (Interventions Implemented as Appropriate) Problem: Diabetes Comorbidity Goal: Blood Glucose Level Within Targeted Range Outcome: Ongoing (Interventions Implemented as Appropriate) Problem: Hypertension Comorbidity Goal: Blood Pressure in Desired Range Outcome: Ongoing (Interventions Implemented as Appropriate) * Plan of Care - Sun Aviles RN - 11/05/2023 6:36 PM EDT OUTCOME EVALUATION NOTE: OUTCOME SUMMARY: Pt intermittently A/Ox4 this shift, team aware. Pt able to follow commands, PERRLA. Pt on 2L NC. Ptafib, HR 80s-100s, MAP>65, afebrile. Pt tolerating carb/count diet. Insulin gtt off at 1340. PLAN MOVING FORWARD: Q4 VS & I/O Q4 FS Wound dressing change every third day INDIVIDUALIZED FALL PREVENTION INTERVENTIONS: Patient-specific fall risk factors per assessment: [current deficits]: generalized weakness Assistance [level of assistance required for transfers and ambulation]: x2 assist Supervision [direct monitoring required during toileting and ADLs]: x1 assist Surveillance [continuous indirect monitoring]: pulse-ox, telemetry Patient-specific fall prevention interventions for sensory deficits provided, if applicable: [X] No CARE PLAN GOAL OUTCOME EVALUATION: Problem: Adult Inpatient Plan of Care Goal: Plan of Care Review Outcome: Ongoing (Interventions Implemented as Appropriate) Goal: Patient-Specific Goal (Individualized) Outcome: Ongoing (Interventions Implemented as Appropriate) Goal: Absence of Hospital-Acquired Illness or Injury Outcome: Ongoing (Interventions Implemented as Appropriate) Goal: Optimal Comfort and Wellbeing Outcome: Ongoing (Interventions Implemented as Appropriate) Goal: Readiness for Transition of Care Outcome: Ongoing (Interventions Implemented as Appropriate) Problem: Fall Injury Risk Goal: Absence of Fall and Fall-Related Injury Outcome: Ongoing (Interventions Implemented as Appropriate) * Consult Note - Patty Cornelius RN - 11/05/2023 3:13 PM EDT Images from the original note were not included. Certified Wound Care Nurse Note Situation: Asked to see Hope Yee by Kendra Harding RN for sacrum, open wounds, present on admission. Background: [facility] notes reviewed for history, admitting diagnosis and active problem list. Per MD note: Hope Yee is a 73 y.o. female with a PMH significant for Obesity (BMI30.7), HTN, Afib (on Xeralto), SVT, bradycardia, DM type 2, CKD, chronic indwelling Barber catheter, TIA, [facility], [facility] and hyperglycemia now transferring to the ICU with Bradycardia and presumed DKA vs HHS. Wound Assessment and Care Provided: Patient seen this afternoon in room IC15-A in bed, reason for visit explained to patient, permission received to assess skin. RN requested skin under breasts and pannus be checked and also assess leg wounds, states patient has a suprapubic catheter. Patient on the phone periodically during visit. Skin under breasts and pannus moist, Interdry Ag in place. Some pinkness under the left breast. 2 layer compression wraps on (Coflex), permission received to remove. Patient does confirm she getsedema if wraps not on. Bilateral pedal pulses present. Only one open area noted on the right medialleg, partial thickness with epidermal loss. Cleansed and a Mepilex Border applied, Silicone cream applied to the legs. Left calf measures 31 cm, right calf measures 32 cm. Dermafits size D applied toprovide 20-30 mmHg of compression. Patient uses pull ups at home. States she had diarrhea x 3 weeks and that her bed sore was present 2 weeks before the diarrhea started. She does have visiting nurses that help with her wounds at home. She was able to turn to the left side for assessment, partial thickness wounds noted at the bilateral buttocks and coccyx. Mepilex Borders present. Right medial leg: Legs: Buttocks and coccyx: Antony Score: 13 Last Pressure Ulcer Prevention assessment: Shift Pressure Injury Prevention Occiput: No Injury Thoracic Spine: No Injury Sacral: Existing Injury prior to this admission Ischial - left: No Injury Ischial - right: No Injury Heel - left: other (see comment) (NIKKY, Richar wrap) Heel - right: other (see comment) (NIKKY, RICHAR wrap) Elbow - left: No Injury Elbow - right: No Injury Device Sites: richar wraps, BP Cuff, ECG Leads, IV sites, O2 sat monitor, SCD's / venodynes, oxygen tubing Other Sites: suprpubic catheter Existing Wounds: Pressure Injury 11/05/23 0309 coccyx Stage 2 (Active) Pressure Injury Appearance yellow;moist;pink 11/05/23 1500 Wound Length (cm) 0.3 cm 11/05/23 1500 Wound Width (cm) 0.3 cm 11/05/23 1500 Wound Surface Area (cm^2) 0.09 cm^2 11/05/23 1500 Dressing foam 11/05/23 1500 Wound Image 11/05/23 1500 Nutritional Status Wt Readings from Last 1 Encounters: 11/05/23 87.8 kg (193 lb 9 oz) Body mass index is 30.77 kg/m??. Labs Lab Results Component Value Date ALBUMIN 3.7 11/05/2023 ALBUMIN 3.6 01/08/2018 ALBUMIN 3.8 03/29/2014 CRP 0.3 10/06/2011 HA1C 13.1 (H) 11/05/2023 HA1C 10.8 (H) 01/08/2018 HA1C 10.4 (H) 03/29/2014 WBC 10.3 (H) 11/05/2023 WBC 7.9 01/10/2018 WBC 7.6 01/09/2018 HGB 9.7 (L) 11/05/2023 HGB 11.6 (L) 01/10/2018 HGB 12.3 01/09/2018 HCT 32.4 (L) 11/05/2023 HCT 37.3 01/10/2018 HCT 40.3 01/09/2018 PLATELET 428 (H) 11/05/2023 PLATELET 371 (H) 01/10/2018 PLATELET 320 01/09/2018 INR 1.7 11/05/2023 INR 1.2 01/08/2018 INR 0.9 03/29/2014 PT 18.9 (H) 11/05/2023 PT 13.1 (H) 01/08/2018 PT 12.7 03/29/2014 Nutritional Intake Nutrition Diet/Nutrition Received: NPO Current bed: Progressa Assessment: Patient has pinkness on the lower legs and has edema without compression, most likely a mix of lymphedema and chronic venous insufficiency. Compression is appropriate, recommend obtaining updated PATRICK's. Buttocks and coccyx wounds with moisture playing a part due to diarrhea, the moisture most likely weakened the skin leading to a stage 2 pressure injury on the coccyx present on admission. Wound Care Recommendations: Wound Related Tests: PATRICK/TBI's (vascular lab) Mepilex Border Sacrum dressing to sacrum-Assess beneath the dressing daily and reapply, sealing edges with skin prep. Change every 3 days and PRN: 1. Cleanse skin with dermal wound cleanser. 2. Apply Mepilex Border Sacrum dressing making sure to apply directly against the skin. 3. Seal edges with skin prep. If the Mepilex Border Sacrum needs to be changed more than once a day due to soiling then discontinue and use shield barrier wipes and apply zinc barrier cream to denuded skin Mepilex Border dressing to right lower leg-nursing to change every 3 days and as needed for dressing with 50% or greater strike though drainage. 1. Cleanse wound with dermal wound cleanser and gauze. 2. Apply Mepilex Border dressing Dermafit Size D Remove Dermafit to assess legs for pressure related injury daily. 1. Cleanse leg(s) with Dermal Wound Cleanser, pat dry. 2. Place Dermafit by pulling Dermafit onto leg up to popliteal space, like you would place a sock. (Keep in single layer, preventing bunching behind the knee). 3. Double back Dermafit upon itself, creating a two layer sock. Make sure the top of the second layer is 1 inch below the top of the first layer to allow for a graduated compression at the proximal end. Refer to adult/pediatric pressure ulcer prevention job aid in the clinical policy library highlighting the following points: Mobility: Turn and reposition every 2 hours and document in ED-H, side to side only. Place a pillow above and below sacral area while in bed to off load pressure to the sacrum Offload pressure from heels by placing pillows lengthwise beneath legs while in bed. Offload pressure from heels by adjusting length of foot of bed. Activity: Implement reminder system for repositioning every two hours while in bed Limit time OOB to the chair to 1 hour intervals. (Including placing bed in chair position, or having HOB higher than 30 degrees) Use a K121 chair cushion beneath patient at all times while in the chair. Reinforce teaching to shift weight every 15 minutes while in the chair. This can be done by shifting weight side to side to off load pressure to ischial tuberosities. Place a pillow at the lumbar spine to off load pressure to the sacral spine. Moisture: Follow a bowel and bladder schedule for incontinence patients and document. Cleanse skin gently after each incontinence episode with Shield Barrier Wipes. Apply Zinc Oxide Protect Paste to denuded perineal skin bid and prn. Assess skin for fungal infections, notify provider. Use disposable air pads with low air loss or fluidized air surfaces to maintain dry skin and prevent fungal infections. Avoid adult diapers except when patient is out of bed to ambulate or in a chair. Place InterDry Ag in a single layer into skin folds, making sure that 2 inches of the fabric extends out beyond the skin fold to the air. Follow up: Wound Care will follow peripherally as an inpatient (will not see weekly) please notify Wound Care if there are issues with the plan of care. Discussed plan with: /ABRAHAM/PA: Ivy Peres RN: Sun Please contact PATTY CORNELIUS RN on pager [phone] or the wound care team at [phone] or pager [phone] skin and wound care concerns or questions. Electronically Signed By: PATTY CORNELIUS RN * Initial Assessments - Elodia Dahl MSW - 11/05/2023 1:33 PM EDT Summary: Initial Assessment Office of Care Management Initial Assessment GERMAN Stewart reviewed record and discussed patient with Care Team. Source of Information: Team, bedside nurse, medical record, and Patient GERMAN Introduced self/reviewed role; services accepted. Admitted From: Transfer from another hospital Location: [facility] Reason for Hospitalization: my heart was going too slow Covid Vaccination Status: (Pt up to date all doses, most recent booster 10 days ago) Last COVID test: Past medical History: Past Medical History: Diagnosis Date Atrial fibrillation Diabetes mellitus GERD (gastroesophageal reflux disease) Hypertension Melanoma in situ s/p removal Rheumatoid arthritis SVT (supraventricular tachycardia) Hospitalizations Within the Past 30 Days: no previous admission in last 30 days Current Decision-Making Capacity: Self If AD's have not been completed the following surrogate would be surrogate decision maker per [place] surrogate decision making law. (Only good for 180 days) Any patient receiving care in [place] must abide by [place] law. The hierarchy for surrogate decision making is: (a) Patient???s spouse or civil union partner unless there is a divorce proceeding, separation agreement, or restraining order limiting that person???s relationship with the patient. (b) Any adult son or daughter of the patient. (c) Either parent of the patient. (d) Any adult brother or sister of the patient. (e) Any adult grandchild of the patient. (f) Any grandparent of the patient. (g) Any adult aunt, uncle, niece, or nephew of the patient. (h) A close friend of the patient. (i) The agent with financial power of attorney lawyer or a conservator appointed in accordance with RSA 464-A. (j) The guardian of the patient???s estate. Advance Care Planning: Do NOT Attempt CPR - Inpatient <no information> -Advanced Directive: No, need to discuss Current Coping/Education/Information Needs: Pt awake, alert, and conversant; expresses understanding of circumstances of hospitalization Current Functional Ability: 2 assist Functional Status Prior to Admission: Assistive Equipment Prior ADLs & IADLs: Independent with all ADLs & IADLs Home Environment: Others in the home: pet(s). Current Living Arrangements: home/apartment/condo. Accessibility Concerns:Pt lives in 3rd floor apartment with elevator access and no NIKI. In the last 12 months, was there a time when you were not able to pay the mortgage or rent on time?: No In the last 12 months, how many places have you lived?: 1 In the last 12 months, was there a time when you did not have a steady place to sleep or slept in [place] (including now)?: No In the past 12 months has the electric, gas, oil, or water company threatened to shut off services in your home?: No Within the past 12 months, you worried that your food would run out before you got the money to buymore.: Never true Within the past 12 months, the food you bought just didn't last and you didn't have money to get more.: Never true Resource / Environmental Concerns: Resource/Environmental Concerns: none In the past 12 months, has lack of transportation kept you from medical appointments or from getting medications?: No In the past 12 months, has lack of transportation kept you from meetings, work, or from getting things needed for daily living?: No Current DME: (Pt uses a walker outside, a cane inside, and has shower bars) Home Address confirmed as: [address] [place] [id number] Social & Family Supports: All names listed below confirmed with patient as current and correct Extended Emergency Contact Information Primary Emergency Contact: Katharina Yee Relation: Child Secondary Emergency Contact: Sunil Boyd Mobile Relation: Child Current Care Provided by: self Provides Primary Care For: no one Caregiver if needed: child(josiha), adult Quality of Family relationships: helpful, involved, supportive Community Resources being provided currently: none Behavioral Health History: Pt denied Substance Use/Abuse confirmed: Pt denied. Social History Tobacco Use Smoking Status Former Types: Cigarettes Quit date: 06/22/1979 Years since quittin.4 Smokeless Tobacco Never Tobacco Comments per phone call 01/02/2011 0 No problems reported 1-2 Low level 3-5 Moderate level 6-8 Substantial level 9- 10 Severe level 0 to 7 points: Low risk 8 to 15 points: Medium risk 16 to 19 points: High risk 20 to 40 points: Addiction likely Other Pertinent/Service Specific Information: Pt lives alone with her parrot Echo in an apartment in [facility]. Pt has four children: Ciera ([place]) - estranged Katharina ([place]) - point of contact Sunil VILLEDA) - helping pt to find animal care for parrot while pt is hospitalized Beatriz ([place]) don't talk a lot Health/Prescription Coverage: Primary Insurance: [facility] MEDIC[facility] Payor: [facility] MED[facility] / Plan: [facility]IC[facility] / Product Type: *No Product type* / Secondary Insurance: MEDICAID [place] ; Prescription Coverage: Yes Preferred Pharmacy: [id number] - [place], [place] - [address] [facility] [id number] [facility] - [place], [place] - [address] [facility] [address] [facility] [id number] [id number] - [place], [place] - [address] [facility] [address] [facility] [id number] [place] Status: Patient is a : No Primary Care Provider confirmed: KATHLEEN Retana [phone] Patient/Caregiver Goals of Treatment: Pt's goal is to return back to apartment at discharge to be with parrot Echo Potential Needs for Transition of Care: (Pending) Agency Referrals: Not Applicable Transportation: no concerns Pt uses Medicaid rides and public bus system. Transportation Anticipated: health plan transportation Concerns to be Addressed: pet needs Assessment: Ms. Yee is a 73 year old female who was transferred from [facility] and [facility] ([facility]abetic [facility]eto[facility]osis). Plan: Pt is currently alert and oriented. Team will continue to monitor and discharge planning willfollow. A member of the Care Management team will continue to monitor progress, follow for continuity of care and assist with transition of care planning. GERMAN [employer] Supervisor Office of Care Management * Consult Note - Zoe Cleveland APRN - 11/05/2023 11:34 AM EDT Diabetes Management Team Inpatient Consult Date of Consultation: 11/05/2023 Consult Requested by: Critical Care Green Reason for Consultation: Hope Yee is a 73 y.o. female with PMH significant for T2DM who was admitted on 11/05/2023 currently being treated for DKA. We are being consulted to assist with diabetes management and to provide a review of half-way diabetes care. Diabetes History: Hope Yee has had diabetes since 1991.. Current outpatient diabetes regimen: Diabetes Provider: was previously seen by Dr Vargas in 2020. Currently follows with PCP Medications: Trulicity 1.5mg weekly, Farxiga 5mg daily, Metformin 1000mg twice daily, Lantus 30 units at bedtime, Humalog 12 units with lunch. Monitoring is done 1 times a day (FBS) Most recent HA1c was done on 11/05/23 and was 13.1%, suggesting an average glucose of 329 mg/dL. Trouble with hypoglycemia no Current Weight 87.8kg Diabetes Complications Status: Eyes: None, last eye exam was 4 years ago Kidneys: GFR 39 on 11/05/23 Sensory: denies, notes +neuropathy Autonomic: None Cardiovascular : +Afib Current Hospital Diabetes Care: Medications: DKA protocol Monitoring: every 1 hour Diet: NPO ROS: deferred PMH Past Medical History: Diagnosis Date Atrial fibrillation Diabetes mellitus GERD (gastroesophageal reflux disease) Hypertension Melanoma in situ s/p removal Rheumatoid arthritis SVT (supraventricular tachycardia) Current Hospital Medications: sodium chloride 0.9 % (flush) 5 mL Intravenous BID sodium chloride 0.9 % (flush) 5 mL Intravenous BID cefTRIAXone 2 g Intravenous Q24H sodium zirconium cyclosilicate 10 g Oral Daily PRN: sodium chloride 0.9 % (flush), lidocaine, sodium chloride 0.9 % (flush), lidocaine, glucose 40% oral geL OR dextrose OR glucagon, insulin regular human Allergy: Allergies Allergen Reactions Trazodone hallucinations Social history: Social History Tobacco Use Smoking status: Former Types: Cigarettes Quit date: 06/22/1979 Years since quittin.4 Smokeless tobacco: Never Tobacco comments: per phone call 01/02/2011 Vaping Use Vaping Use: Never used Substance Use Topics Alcohol use: Yes Comment: 1 drink every 3-4 months Drug use: Yes Types: Marijuana Comment: Rare use when Arthritis acts up Family history: Family History Problem Relation Age of Onset Diabetes Mother Heart Disease Mother Multiple Sclerosis Sister Vitals Last value Range last 24 hrs Temperature Temp: 36.7 ??C (98.1 ??F) Temp: [36.4 ??C (97.5 ??F)-37 ??C (98.6 ??F)] Heart Rate Heart Rate: 81 Heart Rate: [71-81] Blood Pressure BP: 111/59 BP: (88-126)/(47-94) Respiratory Rate Resp: 13 Resp: [13-21] SpO2 SpO2: 93 % SpO2: [82 %-97 %] Physical Exam: Gen: talking in clear sentences. Laying in bed comfortably Lungs: breathing non-labored. Neuro: Moving all extremities. Grossly non-focal Labs: Lab Results Component Value Date BUN 30 (H) 11/05/2023 CREATININE 1.23 (H) 11/05/2023 GLUCOSE 301 (H) 11/05/2023 GLUCFASTING 91 01/11/2018 ESTGFR 46 (L) 11/05/2023 Lab Results Component Value Date HA1C 13.1 (H) 11/05/2023 No results found for: MICROALBUR Lab Results Component Value Date CHLPL 118 01/08/2018 Lab Results Component Value Date HDL 51 01/08/2018 Lab Results Component Value Date LDLCHOL 57 01/08/2018 Lab Results Component Value Date TRIG 51 01/08/2018 Lab Results Component Value Date CHOLHDL 2.3 01/08/2018 Assessment: Patient is a 73 y.o. years old female with PMH significant for DM (Last A1C of 13.1%) who was admitted on 11/05/2023 for DKA. Diabetes uncontrolled and currently complicated by unknown insulin requirements. Currently with variability of blood glucose levels while hospitalized requiring adjustment of insulin regimen and DM medications. Weight based considerations: Calculated TDD would be: 60 Glargine dosin Carb ratio: 8.3 Correction Scale:25 Patient's home TDD is 42 units recommend starting with weight based dosing. Glargine 30 units. Keeping 1;25 correction scale. Being a little more conservative with meals and starting at 1:10 carb ratio. Due to unknown insulin requirement and elevated A1c, recommend titratable drip and meal insulin Plan: Primary team to enter in orders 1. Continue titratable drip 2.Lispro 1unit: 10 gm carb ratio for each meal and snack 3.Recommend ordering a fasting glucose and cpeptide Diabetes Discharge Planning Medications - Discontinue SGLT2, Dependent on kidney function metfomrin may need to be reduced. Monitoring - continue BG 4 times daily, ac & hs Diet - low fat/low carb diet Exercise - weight-bearing exercise 30 min/day, as tolerated Thank you for allowing us to provide care for your patient Zoe Cleveland APRN [facility] Endocrinology Diabetes Management Pager [phone] 80 minute visit was spent evaluating diabetes and treatment plan, reviewing all glucose and insulindata as well as relevant laboratory results , and coordination of care on the inpatient unit including nursing and primary team. * Plan of Care - Antoinette Jones RN - 11/05/2023 7:37 AM EDT OUTCOME EVALUATION NOTE: OUTCOME SUMMARY: Assumed care of pt 0300. Pt arrived via EMS as transfer from [facility]. A+Ox4. Afib on tele, O2 weaned to 2L NC. Labs collected. Insulin gtt and fluids per order. Pt denies pain, CP, SOB. Q1 BG checks, Q2VS and I/O. Wound care consult placed. Pt able to rest between care. documented in this encounter Plan of Treatment Scheduled Referrals Name Type Priority Associated Diagnoses Orde r Schedule Referral to Home Health Outpatient Referral Routine Diabetic ketoacidosis with coma associated with other specified diabetes mellitus Ordered: 11/23/2023 documented as of this encounter Procedures Procedure [...] POCT GLUCOSE Routine 11/22/2023 7:48 AM EDT HEMOGRAM Routine 11/22/2023 4:25 AM EDT DIFFERENTIAL, AUTOMATED Routine 11/22/19 4:25 AM EDT CBC (WITH DIFF) Routine [...] POCT GLUCOSE Routine 11/21/2023 4:15 AM EDT HEMOGRAM Routine 11/21/2023 4:13 AM EDT DIFFERENTIAL, AUTOMATED Routine 11/21/19 24 4:13 AM EDT CBC (WITH DIFF) Routine 11/21/2023 4:13 AM EDT MAGNESIUM Routine 11/21/2023 4:13 AM EDT BASIC METABOLIC PANEL Routine 11/21/2023 4:13 AM EDT POCT GLUCOSE Routine 11/20/2023 7:37 PM EDT POCT GLUCOSE Routine 11/20/2023 4:14 PM EDT POCT GLUCOSE Routine 11/20/2023 11:13 AM EDT POCT GLUCOSE Routine 11/20/2023 7:34 AM EDT HEMOGRAM Routine 11/20/2023 5:58 AM EDT DIFFERENTIAL, AUTOMATED Routine 11/20/19 24 5:58 AM EDT CBC (WITH DIFF) Routine 11/20/2023 5:58 AM EDT MAGNESIUM Routine 11/20/2023 5:58 AM EDT BASIC METABOLIC PANEL Routine 11/20/2023 5:58 AM EDT POCT GLUCOSE Routine 11/19/2023 9:22 PM EDT POCT GLUCOSE Routine 11/19/2023 3:31 PM EDT POCT GLUCOSE Routine 11/19/2023 11:40 AM EDT POCT GLUCOSE Routine 11/19/2023 7:29 AM EDT HEMOGRAM Routine 11/19/2023 1:48 AM EDT DIFFERENTIAL, AUTOMATED Routine 11/19/19 24 1:48 AM EDT CBC (WITH DIFF) Routine [...] POCT GLUCOSE Routine 11/18/2023 7:32 AM EDT HEMOGRAM Routine 11/18/2023 5:21 AM EDT DIFFERENTIAL, AUTOMATED Routine 11/18/19 5:21 AM EDT CBC (WITH DIFF) Routine 11/18/2023 5:21 AM EDT MAGNESIUM Routine 11/18/2023 5:21 AM EDT BASIC METABOLIC PANEL Routine 11/18/2023 5:21 AM EDT POCT GLUCOSE Routine 11/17/2023 11:36 PM EDT POCT GLUCOSE Routine 11/17/2023 4:35 PM EDT POCT GLUCOSE Routine 11/17/2023 1:49 PM EDT POCT GLUCOSE Routine 11/17/2023 11:44 AM EDT POCT GLUCOSE Routine 11/17/2023 8:08 AM EDT HEMOGRAM Routine 11/17/2023 5:13 AM EDT DIFFERENTIAL, AUTOMATED Routine 11/17/19 5:13 AM EDT CBC (WITH DIFF) Routine [...] POCT GLUCOSE Routine 11/16/2023 3:36 AM EDT HEMOGRAM Routine 11/16/2023 3:22 AM EDT DIFFERENTIAL, AUTOMATED Routine 11/16/19 3:22 AM EDT CBC (WITH DIFF) Routine [...] POCT GLUCOSE Routine 11/15/2023 8:24 AM EDT HEMOGRAM Routine 11/15/2023 3:57 AM EDT DIFFERENTIAL, AUTOMATED Routine 11/15/19 3:57 AM EDT CBC (WITH DIFF) Routine [...] POCT GLUCOSE Routine 11/14/2023 7:38 AM EDT HEMOGRAM Routine 11/14/2023 4:33 AM EDT DIFFERENTIAL, AUTOMATED Routine 11/14/19 4:33 AM EDT CBC (WITH DIFF) Routine [...] POCT GLUCOSE Routine 11/13/2023 12:23 AM EDT HEMOGRAM Routine 11/13/2023 12:08 AM EDT DIFFERENTIAL, AUTOMATED Routine 11/13/19 12:08 AM EDT CBC (WITH DIFF) Routine 11/13/2023 12:08 AM EDT MAGNESIUM Routine 11/13/2023 12:08 AM EDT BASIC METABOLIC PANEL Routine 11/13/2023 12:08 AM EDT POCT GLUCOSE Routine 11/12/2023 8:21 PM EDT POCT GLUCOSE Routine 11/12/2023 5:58 PM EDT POCT GLUCOSE Routine 11/12/2023 3:48 PM EDT POCT GLUCOSE Routine 11/12/2023 1:41 PM EDT POCT GLUCOSE Routine 11/12/2023 12:26 PM EDT POCT GLUCOSE Routine 11/12/2023 8:17 AM EDT POCT GLUCOSE Routine 11/12/2023 4:07 AM EDT HEMOGRAM Routine 11/12/2023 12:54 AM EDT DIFFERENTIAL, AUTOMATED Routine 11/12/19 12:54 AM EDT CBC (WITH DIFF) Routine [...] POCT GLUCOSE Routine 11/11/2023 8:17 AM EDT HC STOOL CULTURE Routine 11/11/2023 5:41 AM EDT CAMPYLOBACTER ANTIGEN Routine 11/11/2023 5:41 AM EDT SHIGA TOXIN ASSAY Routine 11/11/2023 5:4 1 AM EDT STOOL CULTURE Routine 11/11/2023 5:41 AM EDT HEMOGRAM Routine 11/11/2023 5:13 AM EDT DIFFERENTIAL, AUTOMATED Routine 11/11/19 5:13 AM EDT CBC (WITH DIFF) Routine 11/11/2023 5:13 AM EDT POCT GLUCOSE Routine 11/11/2023 3:00 AM EDT MAGNESIUM Routine 11/11/2023 12:20 AM EDT BASIC METABOLIC PANEL Routine 11/11/2023 12:20 AM EDT POCT GLUCOSE Routine 11/11/2023 12:13 AM EDT POCT GLUCOSE Routine 11/10/2023 7:23 PM EDT POCT GLUCOSE Routine 11/10/2023 3:01 PM EDT POCT GLUCOSE Routine 11/10/2023 11:06 AM EDT SODIUM, URINE, RANDOM Routine 11/10/2023 9:39 AM EDT OSMOLALITY, URINE, RANDOM Routine 11/10/2023 9:39 AM EDT POCT GLUCOSE Routine 11/10/2023 7:33 AM EDT POCT GLUCOSE Routine 11/10/2023 4:08 AM EDT POCT GLUCOSE Routine 11/10/2023 12:18 AM EDT SCAN, PERIPHERAL BLOOD Routine 12:00 AM EDT HEMOGRAM Routine 11/10/2023 12:00 AM EDT DIFFERENTIAL, AUTOMATED Routine 11/10/19 12:00 AM EDT CBC (WITH DIFF) Routine 11/10/2023 12:00 AM EDT OSMOLALITY Routine 11/10/2023 12:00 AM EDT MAGNESIUM Routine 11/10/2023 12:00 AM EDT FOLATE, SERUM Routine 11/10/2023 12:00 AM EDT FERRITIN Routine 11/10/2023 12:00 AM EDT VITAMIN B12 Routine 11/10/2023 12:00 AM EDT BASIC METABOLIC PANEL Routine 11/10/2023 12:00 AM EDT POCT GLUCOSE Routine 11/09/2023 7:36 PM EDT POCT GLUCOSE Routine 11/09/2023 4:53 PM EDT PATRICK, LEGS, MULTIPLE LEVELS Routine 11/09/2023 4:43 PM EDT Wound of right lower extremity, initial encounter POCT GLUCOSE Routine 11/09/2023 11:53 AM EDT POCT GLUCOSE Routine 11/09/2023 7:41 AM EDT POCT GLUCOSE Routine 11/09/2023 4:07 AM EDT HEMOGRAM Routine 11/09/2023 12:00 AM EDT DIFFERENTIAL, AUTOMATED Routine 11/09/19 12:00 AM EDT CBC (WITH DIFF) Routine 11/09/2023 12:00 AM EDT MAGNESIUM Routine 11/09/2023 12:00 AM EDT HEPATIC FUNCTION PANEL Routine 12:00 AM EDT BASIC METABOLIC PANEL Routine 11/09/2023 12:00 AM EDT POCT GLUCOSE Routine 11/08/2023 10:06 PM EDT POCT GLUCOSE Routine 11/08/2023 4:06 PM EDT POCT GLUCOSE Routine 11/08/2023 12:12 PM EDT POCT GLUCOSE Routine 11/08/2023 8:13 AM EDT POCT GLUCOSE Routine 11/08/2023 3:51 AM EDT POCT GLUCOSE Routine 11/08/2023 12:18 AM EDT HEMOGRAM Routine 11/08/2023 12:18 AM EDT DIFFERENTIAL, AUTOMATED Routine 11/08/19 12:18 AM EDT CBC (WITH DIFF) Routine 11/08/2023 12:18 AM EDT MAGNESIUM Routine 11/08/2023 12:18 AM EDT BASIC METABOLIC PANEL Routine 11/08/2023 12:18 AM EDT POCT GLUCOSE Routine 11/07/2023 7:24 PM EDT POCT GLUCOSE Routine 11/07/2023 5:42 PM EDT POCT GLUCOSE Routine 11/07/2023 3:42 PM EDT GREEN TUBE HOLD Routine 11/07/2023 3:40 PM EDT POCT GLUCOSE Routine 11/07/2023 11:46 AM EDT PRO-BRAIN NATRIURETIC PEPTIDE STAT 11/07/2023 7:54 AM EDT BASIC METABOLIC PANEL STAT 11/07/2023 7:54 AM EDT POCT GLUCOSE Routine 11/07/2023 7:52 AM EDT POCT GLUCOSE Routine 11/07/2023 4:10 AM EDT HEMOGRAM Routine 11/07/2023 12:22 AM EDT DIFFERENTIAL, AUTOMATED Routine 11/07/19 12:22 AM EDT CBC (WITH DIFF) Routine 11/07/2023 12:22 AM EDT PHOSPHORUS Routine 11/07/2023 12:22 AM EDT MAGNESIUM Routine 11/07/2023 12:22 AM EDT BASIC METABOLIC PANEL STAT 11/07/2023 12:22 AM EDT POCT GLUCOSE Routine 11/07/2023 12:18 AM EDT POCT GLUCOSE Routine 11/06/2023 7:30 PM EDT POCT GLUCOSE Routine 11/06/2023 6:10 PM EDT POCT GLUCOSE Routine 11/06/2023 3:52 PM EDT BASIC METABOLIC PANEL STAT 11/06/2023 3:33 PM EDT POCT GLUCOSE Routine 11/06/2023 12:19 PM EDT POCT GLUCOSE Routine 11/06/2023 7:48 AM EDT BASIC METABOLIC PANEL STAT 11/06/2023 7:45 AM EDT POCT GLUCOSE Routine 11/06/2023 4:19 AM EDT POCT GLUCOSE Routine 11/06/2023 3:08 AM EDT POCT GLUCOSE Routine 11/06/2023 2:04 AM EDT C-PEPTIDE Routine 11/06/2023 1:44 AM EDT POTASSIUM Routine 11/06/2023 1:44 AM EDT POCT GLUCOSE Routine 11/06/2023 1:16 AM EDT POCT GLUCOSE Routine 11/06/2023 12:46 AM EDT POCT GLUCOSE Routine 11/06/2023 12:18 AM EDT PHOSPHORUS Routine 11/05/2023 11:45 PM EDT MAGNESIUM Routine 11/05/2023 11:45 PM EDT BASIC METABOLIC PANEL STAT 11/05/2023 11:45 PM EDT POCT GLUCOSE Routine 11/05/2023 11:43 PM EDT POCT GLUCOSE Routine 11/05/2023 11:04 PM EDT POCT GLUCOSE Routine 11/05/2023 10:03 PM EDT POCT GLUCOSE Routine 11/05/2023 9:09 PM EDT POCT GLUCOSE Routine 11/05/2023 8:15 PM EDT POCT GLUCOSE Routine 11/05/2023 6:46 PM EDT POCT GLUCOSE Routine 11/05/2023 5:55 PM EDT BLOOD GAS VENOUS POC Routine 11/05/2023 4:16 PM EDT POCT GLUCOSE Routine 11/05/2023 4:11 PM EDT POCT GLUCOSE Routine 11/05/2023 2:58 PM EDT POCT GLUCOSE Routine 11/05/2023 2:01 PM EDT POCT GLUCOSE Routine 11/05/2023 1:29 PM EDT POCT GLUCOSE Routine 11/05/2023 1:02 PM EDT BMP W/FASTING GLUCOSE Routine 11/05/2023 12:24 PM EDT C-PEPTIDE Routine 11/05/2023 12:24 PM EDT POCT GLUCOSE Routine 11/05/2023 12:09 PM EDT POCT GLUCOSE Routine 11/05/2023 11:40 AM EDT POCT GLUCOSE Routine 11/05/2023 11:03 AM EDT ECHO COMPLETE W CONTRAST Routine 11/05/2023 10:22 AM EDT Persistent atrial fibrillation POCT GLUCOSE Routine 11/05/2023 10:03 AM EDT POCT GLUCOSE Routine 11/05/2023 9:13 AM EDT BASIC METABOLIC PANEL STAT 11/05/2023 8:00 AM EDT POCT GLUCOSE Routine 11/05/2023 7:52 AM EDT POCT GLUCOSE Routine 11/05/2023 6:55 AM EDT BLOOD GAS VENOUS POC Routine 11/05/2023 6:04 AM EDT HC TROPONIN T STAT 11/05/2023 6:00 AM EDT HEMOGLOBIN A1C Routine 11/05/2023 6:00 AM EDT POCT GLUCOSE Routine 11/05/2023 5:58 AM EDT HC URINALYSIS ROUTINE STAT 11/05/2023 5:35 AM EDT POCT GLUCOSE Routine 11/05/2023 5:08 AM EDT POCT GLUCOSE Routine 11/05/2023 4:25 AM EDT RESPIRATORY PANEL PCR Routine 11/05/2023 4:20 AM EDT BLOOD CULTURE STAT 11/05/2023 4:15 AM EDT BLOOD CULTURE STAT 11/05/2023 4:00 AM EDT XR CHEST ONE VIEW STAT 11/05/2023 3:5 8 AM EDT BLOOD GAS VENOUS POC Routine 11/05/2023 3:39 AM EDT HC TROPONIN T STAT 11/05/2023 3:35 AM EDT SCAN, PERIPHERAL BLOOD STAT 4 3:35 AM EDT HEMOGRAM STAT 11/05/2023 3:35 AM EDT DIFFERENTIAL, AUTOMATED STAT 11/05/19 3:35 AM EDT BETA HYDROXYBUTYRATE STAT 11/05/2023 3:35 AM EDT HC PARTIAL THROMBOPLASTIN TIME STAT 11/05/2023 3:35 AM EDT PROTHROMBIN TIME STAT 11/05/2023 3:35 AM EDT CBC (WITH DIFF) STAT 11/05/2023 3:35 AM EDT PHOSPHORUS STAT 11/05/2023 3:35 AM EDT OSMOLALITY STAT 11/05/2023 3:35 AM EDT MAGNESIUM STAT 11/05/2023 3:35 AM EDT CK Routine 11/05/2023 3:35 AM EDT HEPATIC FUNCTION PANEL Routine 3:35 AM EDT BASIC METABOLIC PANEL STAT 11/05/2023 3:35 AM EDT POCT GLUCOSE Routine 11/05/2023 3:30 AM EDT EKG 12-LEAD STAT 11/05/2023 3:10 AM EDT Persistent atrial fibrillation POCT GLUCOSE Routine 11/05/2023 3:03 AM EDT documented in this encounter Results * Intrinsic Factor Blocking Antibody (11/23/2023 12:18 PM EDT) IF Ab Negative Negative [facility] Comment: Test Performed by: [facility] [place] [address] [employer]ence Manufact[employer] Supervisor: Mark Cooney M.D. Ph.D.; CLIA# [id number] IF Ab Comment SEE COMMENTS [facility] Comment: Intrinsic Factor Blocking Antibody (IFBA) antibodies are absent in approximately 50% of individuals with pernicious anemia (PA). The absence of elevated IFBA antibodies does not rule out the presence of PA; further studies such as gastrin testing may be indicated. Test Performed by: [facility] - [address] [address] [employer]ence Manufact[employer] Supervisor: Mark Cooney M.D. Ph.D.; CLIA# [id number] Blood 11/23/2023 12:1 8 PM EDT 11/23/2023 12:48 PM EDT Nicolás Rodriguez MD LAB SEND OUT ORDERAB LES [facility] [place] [address] * POCT Glucose (11/23/2023 11:18 AM EDT) Glucose, POC 196 65 - 199 mg/dL [facility] Comment: Supplemental ranges: <140 mg/dL before meals <180 mg/dL all other times of the day Blood 11/23/2023 11:1 8 AM EDT 11/23/2023 11:18 AM EDT Nicolás Rodriguez MD POINT OF CARE TEST O RDERABLES Performing Organization Address City/[facility]/ZIP Co de Phone Number [facility] [place] [address] * POCT Glucose (11/23/2023 7:18 AM EDT) Glucose, POC 112 65 - 199 mg/dL [facility] Comment: Supplemental ranges: <140 mg/dL before meals <180 mg/dL all other times of the day Blood 11/23/2023 7:18 AM EDT 11/23/2023 7:18 AM EDT Nicolás Rodriguez MD POINT OF CARE TEST O RUBEN [facility] [place] [place] [address] * POCT Glucose (11/22/2023 9:28 PM EDT) Glucose, POC 118 65 - 199 mg/dL [facility] Comment: Supplemental ranges: <140 mg/dL before meals <180 mg/dL all other times of the day Blood 11/22/2023 9:28 PM EDT 11/22/2023 9:28 PM EDT Nicolás Rodriguez MD POINT OF CARE TEST O RUBEN Performing Organization Address [facility]/ZIP Co de Phone Number [facility] [place] [address] * POCT Glucose (11/22/2023 6:30 PM EDT) Glucose, POC 110 65 - 199 mg/dL [facility] Comment: Supplemental ranges: <140 mg/dL before meals <180 mg/dL all other times of the day Blood 11/22/2023 6:30 PM EDT 11/22/2023 6:30 PM EDT Nicolás Rodriguez MD POINT OF CARE TEST O RDERAMICHELE [facility] [place] [address] * POCT Glucose (11/22/2023 11:36 AM EDT) Glucose, POC 133 65 - 199 mg/dL [facility] Comment: Supplemental ranges: <140 mg/dL before meals <180 mg/dL all other times of the day Blood 11/22/2023 11:3 6 AM EDT 11/22/2023 11:36 AM EDT Nicolás Rodriguez MD POINT OF CARE TEST O RUBEN Performing Organization Address City/[facility] Co de Phone Number [facility] [place] [address] * POCT Glucose (11/22/2023 7:48 AM EDT) Glucose, POC 89 65 - 199 mg/dL [facility] Comment: Supplemental ranges: <140 mg/dL before meals <180 mg/dL all other times of the day Blood 11/22/2023 7:48 AM EDT 11/22/2023 7:48 AM EDT Nicolás Rodriguez MD POINT OF CARE TEST O RUBEN Performing Organization Address City/[facility] Co de Phone Number [facility] [place] [address] * (ABNORMAL) Differential, Automated (11/22/2023 4:25 AM EDT) Pathologist [facility] Neutrophil % 61.8 % [facility] Neutrophil Absolute 5.37 1.70 - 6.10 x10(3)/mc L [facility] Lymph % 22.4 % [facility] Lymphocytes Abs 2.0 0.9 - 3.2 x10(3)/mc L [facility] Monocyte % 11.5 % [facility] Monocyte Abs 1.0(H) 0.3 - 0.9 x10(3)/mc L [facility] Eos % 2.6 % [facility] Eosinophils Abs 0.2 0.0 - 0.4 x10(3)/mc L [facility] Basophil % 0.9 % [facility] Baso Absolute 0.1 0.0 - 0.1 x10(3)/mc L [facility] Immature Gran % 0.80 % [facility] Comment: Immature granulocytes(IG's)percentage and absolute count will include metamyelocytes, myelocytes, and promyelocytes. Blood smears from CBCs yielding IG's will be scanned manually for concordance. If this scan disagrees with the automated IG or if promyelocytes are noted, a manual differential will be performed. Immature Gran Absolute 0.07(H) 0.00 - 0.04 x10(3)/[facility] Blood 11/22/2023 4:25 AM EDT 11/22/2023 5:02 AM EDT Narrative Resulting Agency Comment Spec In Lab Francis Roberts MD HEMATOLOGY ORDERABL ES [facility] [place] [place] [address] * (ABNORMAL) Hemogram (11/22/2023 4:25 AM EDT) White Blood Cell 8.7 4.0 - 9.5 x10(3)/[facility] Red Blood Cell 4.16 4.00 - 5.21 x10(6)/[facility] Hemoglobin 9.6(L) 11.7 - 15.5 g/dL [facility] Hematocrit 33.7(L) 35.7 - 45.8 % [facility] Mean Cell Volume 81.0(L) 82.6 - 94.4 fL [facility] Mean Cell Hemoglobin 23.1(L) 27.1 - 32.0 pg [facility] Mean Cell Hemoglobin Concentration 28.5(L) 31.7 - 35.0 g/dL [facility] Platelet 697(H) 145 - 357 x10(3)/ L [facility] RDW Standard Deviation 55.0(H) 37.0 - 46.0 fL [facility] RDW coefficient of variation 18.6(H) 11.5 - 14.1 % [facility] Mean Platelet Volume 10.1 7.6 - 12.9 fL [facility] NRBC% auto 0.0 % [facility] NRBC Absolute 0.000 0.000 - 0.000 x10(3)/mc L [facility] Blood 11/22/2023 4:25 AM EDT 11/22/2023 5:02 AM EDT Narrative Resulting Agency Comment Spec In Lab Francis Roberts MD HEMATOLOGY ORDERABL ES Performing Organization Address [facility]/ZIP Co de Phone Number [facility] [place] [address] * Magnesium (11/22/2023 4:25 AM EDT) Magnesium 0.75 0.69 - 1.07 mmol/L [facility] Blood 11/22/2023 4:25 AM EDT 11/22/2023 5:02 AM EDT Narrative Resulting Agency Comment Spec In Lab Francis Roberts MD CHEMISTRY ORDERABLE S Performing Organization Address [facility] Co de Phone Number [facility] [place] [address] * (ABNORMAL) Basic Metabolic Panel (non-fasting) (11/22/2023 4:25 AM EDT) Glucose 59(L) 65 - 199 mg/dL [facility] Comment:Diabetes: >=200 mg/d L plus symptoms Blood Urea Nitrogen 38(H) 8 - 18 mg/dL [facility] Creatinine 1.02 0.70 - 1.20 mg/dL [facility] Sodium 137 135 - 145 mmol/L [facility] Potassium 4.4 3.5 - 5.0 mmol/L [facility] Comment: Please note: ??Patients with WBC >100,000 may have falsely elevated Potassium levels. ??For accurate Potassium quantification in these patients send serum separator tube (gold top) for subsequent determinations. ??Contact the Clinical Chemistry Laboratory if there are any questions. Chloride 104 98 - 107 mmol/L [facility] Carbon Dioxide 22 22 - 31 mmol/L [facility] Anion Gap 11 5 - 15 mmol/L [facility] Calcium 9.2 8.5 - 10.5 mg/dL [facility] Est Glomerular Filtration Rate 57(L) >=60 mL/min/1. 73 m?? [facility] Comment: This patient's estimated GFR was [...] MD CHEMISTRY ORDERABLE S Performing Organization Address City/[facility]/ZIP Co de Phone Number [facility] [place] [address] * POCT Glucose (11/21/2023 11:02 PM EDT) Glucose, POC 78 65 - 199 mg/dL [facility] Comment: Supplemental ranges: <140 mg/dL before meals <180 mg/dL all other times of the day Blood 11/21/2023 11:0 2 PM EDT 11/21/2023 11:02 PM EDT Nicolás Rodriguez MD POINT OF CARE TEST O RDERABLES Performing Organization Address City/[facility]/ZIP Co de Phone Number [facility] [place] [address] * POCT Glucose (11/21/2023 10:32 PM EDT) Glucose, POC 67 65 - 199 mg/dL [facility] Comment: Supplemental ranges: <140 mg/dL before meals <180 mg/dL all other times of the day Blood 11/21/2023 10:3 2 PM EDT 11/21/2023 10:32 PM EDT Nicolás Rodriguez MD POINT OF CARE TEST O RDERICKA [facility] [place] [address] * POCT Glucose (11/21/2023 3:56 PM EDT) Glucose, POC 180 65 - 199 mg/dL [facility] Comment: Supplemental ranges: <140 mg/dL before meals <180 mg/dL all other times of the day Blood 11/21/2023 3:56 PM EDT 11/21/2023 3:56 PM EDT Nicolás Rodriguez MD POINT OF CARE TEST O RUBEN Performing Organization Address [facility] Co de Phone Number [facility] [place] [address] * (ABNORMAL) POCT Glucose (11/21/2023 12:04 PM EDT) Glucose, POC 246(H) 65 - 199 mg/dL [facility] Comment: Supplemental ranges: <140 mg/dL before meals <180 mg/dL all other times of the day Blood 11/21/2023 12:0 4 PM EDT 11/21/2023 12:04 PM EDT Nicolás Rodriguez MD POINT OF CARE TEST O JUAN MANUELERAMICHELE Performing Organization Address City/[facility]/ZIP Co de Phone Number [facility] [place] [address] * POCT Glucose (11/21/2023 8:11 AM EDT) Glucose, POC 136 65 - 199 mg/dL [facility] Comment: Supplemental ranges: <140 mg/dL before meals <180 mg/dL all other times of the day Blood 11/21/2023 8:11 AM EDT 11/21/2023 8:11 AM EDT Idania Matthews MD POINT OF CARE TEST ORDERABLES [facility] [place] [place] [address] * POCT Glucose (11/21/2023 4:15 AM EDT) Glucose, POC 82 65 - 199 mg/dL [facility] Comment: Supplemental ranges: <140 mg/dL before meals <180 mg/dL all other times of the day Blood 11/21/2023 4:15 AM EDT 11/21/2023 4:15 AM EDT Idania Matthews MD POINT OF CARE TEST ORDERABLES Performing Organization Address City/[facility]/ZIP Co de Phone Number [facility] [place] [address] * (ABNORMAL) Differential, Automated (11/21/2023 4:13 AM EDT) Neutrophil % 72.4 % [facility] Neutrophil Absolute 6.17(H) 1.70 - 6.10 x10(3)/mc L [facility] Lymph % 17.5 % [facility] Lymphocytes Abs 1.5 0.9 - 3.2 x10(3)/mc L [facility] Monocyte % 7.5 % [facility] Monocyte Abs 0.6 0.3 - 0.9 x10(3)/mc L [facility] Eos % 1.3 % [facility] Eosinophils Abs 0.1 0.0 - 0.4 x10(3)/mc L [facility] Basophil % 0.6 % [facility] Baso Absolute 0.0 0.0 - 0.1 x10(3)/[facility] Immature Gran % 0.70 % [facility] Comment: Immature granulocytes(IG's)percentage and absolute count will include metamyelocytes, myelocytes, and promyelocytes. Blood smears from CBCs yielding IG's will be scanned manually for concordance. If this scan disagrees with the automated IG or if promyelocytes are noted, a manual differential will be performed. Immature Gran Absolute 0.06(H) 0.00 - 0.04 x10(3)/[facility] Blood 11/21/2023 4:13 AM EDT 11/21/2023 4:41 AM EDT Narrative Resulting Agency Comment Spec In Lab Francis Roberts MD HEMATOLOGY ORDERABL ES Performing Organization Address City/State/[facility] Co de Phone Number [facility] [place] [address] * (ABNORMAL) Hemogram (11/21/2023 4:13 AM EDT) White Blood Cell 8.5 4.0 - 9.5 x10(3)/[facility] Red Blood Cell 4.42 4.00 - 5.21 x10(6)/[facility] Hemoglobin 10.4(L) 11.7 - 15.5 g/dL [facility] Hematocrit 35.9 35.7 - 45.8 % [facility] Mean Cell Volume 81.2(L) 82.6 - 94.4 fL [facility] Mean Cell Hemoglobin 23.5(L) 27.1 - 32.0 pg [facility] Mean Cell Hemoglobin Concentration 29.0(L) 31.7 - 35.0 g/dL [facility] Platelet 674(H) 145 - 357 x10(3)/[facility] RDW Standard Deviation 54.4(H) 37.0 - 46.0 fL [facility] RDW coefficient of variation 18.5(H) 11.5 - 14.1 % [facility] Mean Platelet Volume 9.9 7.6 - 12.9 fL [facility] NRBC% auto 0.0 % [facility] NRBC Absolute 0.000 0.000 - 0.000 x10(3)/mc L [facility] Blood 11/21/2023 4:13 AM EDT 11/21/2023 4:41 AM EDT Narrative Resulting Agency Comment Spec In Lab Francis Roberts MD HEMATOLOGY ORDERABL ES Performing Organization Address [facility]/ZIP Co de Phone Number [facility] [place] [address] * Magnesium (11/21/2023 4:13 AM EDT) Magnesium 0.76 0.69 - 1.07 mmol/L [facility] Blood 11/21/2023 4:13 AM EDT 11/21/2023 4:41 AM EDT Narrative Resulting Agency Comment Spec In Lab Francis Roberts MD CHEMISTRY ORDERABLE S Performing Organization Address [facility]/ZIP Co de Phone Number [facility] [place] [address] * (ABNORMAL) Basic Metabolic Panel (non-fasting) (11/21/2023 4:13 AM EDT) Glucose 76 65 - 199 mg/dL [facility] Comment:Diabetes: >=200 mg/d L plus symptoms Blood Urea Nitrogen 31(H) 8 - 18 mg/dL [facility] Creatinine 0.92 0.70 - 1.20 mg/dL [facility] Sodium 137 135 - 145 mmol/L [facility] Potassium 4.5 3.5 - 5.0 mmol/L [facility] Comment: Please note: ??Patients with WBC >100,000 may have falsely elevated Potassium levels. ??For accurate Potassium quantification in these patients send serum separator tube (gold top) for subsequent determinations. ??Contact the Clinical Chemistry Laboratory if there are any questions. Chloride 105 98 - 107 mmol/L [facility] Carbon Dioxide 22 22 - 31 mmol/L [facility] Anion Gap 10 5 - 15 mmol/L [facility] Calcium 9.5 8.5 - 10.5 mg/dL [facility] Est Glomerular Filtration Rate 65 >=60 mL/min/1. 73 m?? [facility] Comment: This patient's estimated GFR was [...] and symptoms in addition to eGFR. Blood 11/21/2023 4:13 AM EDT 11/21/2023 4:41 AM EDT Narrative Resulting Agency Comment Spec In Lab Francis Roberts MD CHEMISTRY ORDERABLE S [facility] [address] * POCT Glucose (11/20/2023 7:37 PM EDT) Glucose, POC 168 65 - 199 mg/dL [facility] Comment: Supplemental ranges: <140 mg/dL before meals <180 mg/dL all other times of the day Blood 11/20/2023 7:37 PM EDT 11/20/2023 7:37 PM EDT Idania Matthews MD POINT OF CARE TEST ORDERABLES Performing Organization Address City/[facility]/ZIP Co de Phone Number [facility] [place] [address] * POCT Glucose (11/20/2023 4:14 PM EDT) Glucose, POC 189 65 - 199 mg/dL [facility] Comment: Supplemental ranges: <140 mg/dL before meals <180 mg/dL all other times of the day Blood 11/20/2023 4:14 PM EDT 11/20/2023 4:14 PM EDT Idania Matthews MD POINT OF CARE TEST ORDERABLES Performing Organization Address City/[facility] Co de Phone Number [facility] [place] [address] * POCT Glucose (11/20/2023 11:13 AM EDT) Glucose, POC 137 65 - 199 mg/dL [facility] Comment: Supplemental ranges: <140 mg/dL before meals <180 mg/dL all other times of the day Blood 11/20/2023 11:1 3 AM EDT 11/20/2023 11:13 AM EDT Idania Matthews MD POINT OF CARE TEST ORDERABLES Performing Organization Address City/[facility] Co de Phone Number [facility] [place] [address] * POCT Glucose (11/20/2023 7:34 AM EDT) Glucose, POC 77 65 - 199 mg/dL [facility] Comment: Supplemental ranges: <140 mg/dL before meals <180 mg/dL all other times of the day Blood 11/20/2023 7:34 AM EDT 11/20/2023 7:34 AM EDT Idania Matthews MD POINT OF CARE TEST ORDERABLES [facility] [address] * (ABNORMAL) Differential, Automated (11/20/2023 5:58 AM EDT) Neutrophil % 58.2 % [facility] Neutrophil Absolute 5.22 1.70 - 6.10 x10(3)/mc L [facility] Lymph % 28.1 % [facility] Lymphocytes Abs 2.5 0.9 - 3.2 x10(3)/mc L [facility] Monocyte % 9.3 % [facility] Monocyte Abs 0.8 0.3 - 0.9 x10(3)/mc L [facility] Eos % 3.0 % [facility] Eosinophils Abs 0.3 0.0 - 0.4 x10(3)/ L [facility] Basophil % 0.7 % [facility] Baso Absolute 0.1 0.0 - 0.1 x10(3)/mc L [facility] Immature Gran % 0.70 % [facility] Comment: Immature granulocytes(IG's)percentage and absolute count will include metamyelocytes, myelocytes, and promyelocytes. Blood smears from CBCs yielding IG's will be scanned manually for concordance. If this scan disagrees with the automated IG or if promyelocytes are noted, a manual differential will be performed. Immature Gran Absolute 0.06(H) 0.00 - 0.04 x10(3)/mc L [facility] Blood 11/20/2023 5:58 AM EDT 11/20/2023 6:31 AM EDT Narrative Resulting Agency Comment Spec In Lab Francis Roberts MD HEMATOLOGY ORDERABL ES Performing Organization Address City/[facility]/ZIP Co de Phone Number [facility] [place] [address] * (ABNORMAL) Hemogram (11/20/2023 5:58 AM EDT) White Blood Cell 9.0 4.0 - 9.5 x10(3)/[facility] Red Blood Cell 4.20 4.00 - 5.21 x10(6)/ L [facility] Hemoglobin 10.0(L) 11.7 - 15.5 g/dL [facility] Hematocrit 33.9(L) 35.7 - 45.8 % [facility] Mean Cell Volume 80.7(L) 82.6 - 94.4 fL [facility] Mean Cell Hemoglobin 23.8(L) 27.1 - 32.0 pg [facility] Mean Cell Hemoglobin Concentration 29.5(L) 31.7 - 35.0 g/dL [facility] Platelet 607(H) 145 - 357 x10(3)/[facility] RDW Standard Deviation 53.7(H) 37.0 - 46.0 [facility] RDW coefficient of variation 18.5(H) 11.5 - 14.1 % [facility] Mean Platelet Volume 9.7 7.6 - 12.9 fL [facility] NRBC% auto 0.0 % [facility] NRBC Absolute 0.000 0.000 - 0.000 x10(3)/[facility] Blood 11/20/2023 5:58 AM EDT 11/20/2023 6:31 AM EDT Narrative Resulting Agency Comment Spec In Lab Francis Roberts MD HEMATOLOGY ORDERABL ES [facility] [place] [address] * Magnesium (11/20/2023 5:58 AM EDT) Magnesium 0.73 0.69 - 1.07 mmol/L [facility] Blood 11/20/2023 5:58 AM EDT 11/20/2023 6:31 AM EDT Narrative Resulting Agency Comment Spec In Lab Francis Roberts MD CHEMISTRY ORDERABLE S [facility] [place] [address] * (ABNORMAL) Basic Metabolic Panel (non-fasting) (11/20/2023 5:58 AM EDT) Glucose 72 65 - 199 mg/dL [facility] Comment:Diabetes: >=200 mg/d L plus symptoms Blood Urea Nitrogen 26(H) 8 - 18 mg/dL [facility] Creatinine 0.95 0.70 - 1.20 mg/dL [facility] Sodium 140 135 - 145 mmol/L [facility] Potassium 4.2 3.5 - 5.0 mmol/L [facility] Comment: Please note: ??Patients with WBC >100,000 may have falsely elevated Potassium levels. ??For accurate Potassium quantification in these patients send serum separator tube (gold top) for subsequent determinations. ??Contact the Clinical Chemistry Laboratory if there are any questions. Chloride 105 98 - 107 mmol/L [facility] Carbon Dioxide 23 22 - 31 mmol/L [facility] Anion Gap 12 5 - 15 mmol/L [facility] Calcium 9.6 8.5 - 10.5 mg/dL [facility] Est Glomerular Filtration Rate 62 >=60 mL/min/1. 73 m?? [facility] Comment: This patient's estimated GFR was [...] and symptoms in addition to eGFR. Blood 11/20/2023 5:58 AM EDT 11/20/2023 6:31 AM EDT Narrative Resulting Agency Comment Spec In Lab Francis Roberts MD CHEMISTRY ORDERABLE S [facility] [place] [address] * (ABNORMAL) POCT Glucose (11/19/2023 9:22 PM EDT) Glucose, POC 207(H) 65 - 199 mg/dL [facility] Comment: Supplemental ranges: <140 mg/dL before meals <180 mg/dL all other times of the day Blood 11/19/2023 9:22 PM EDT 11/19/2023 9:22 PM EDT Idania Matthews MD POINT OF CARE TEST ORDERABLES Performing Organization Address [facility]/ZIP Co de Phone Number [facility] [place] [address] * POCT Glucose (11/19/2023 3:31 PM EDT) Glucose, POC 135 65 - 199 mg/dL [facility] Comment: Supplemental ranges: <140 mg/dL before meals <180 mg/dL all other times of the day Blood 11/19/2023 3:31 PM EDT 11/19/2023 3:31 PM EDT Idania Matthews MD POINT OF CARE TEST ORDERABLES Performing Organization Address City/[facility]/ZIP Co de Phone Number [facility] [place] [address] * (ABNORMAL) POCT Glucose (11/19/2023 11:40 AM EDT) Glucose, POC 212(H) 65 - 199 mg/dL [facility] Comment: Supplemental ranges: <140 mg/dL before meals <180 mg/dL all other times of the day Blood 11/19/2023 11:4 0 AM EDT 11/19/2023 11:40 AM EDT Idania Matthews MD POINT OF CARE TEST ORDERABLES [facility] [place] [address] * POCT Glucose (11/19/2023 7:29 AM EDT) Glucose, POC 79 65 - 199 mg/dL [facility] Comment: Supplemental ranges: <140 mg/dL before meals <180 mg/dL all other times of the day Blood 11/19/2023 7:29 AM EDT 11/19/2023 7:29 AM EDT Idania Matthews MD POINT OF CARE TEST ORDERABLES Performing Organization Address City/[facility] Co de Phone Number [facility] [place] [place] [address] * (ABNORMAL) Differential, Automated (11/19/2023 1:48 AM EDT) Neutrophil % 57.0 % [facility] Neutrophil Absolute 5.60 1.70 - 6.10 x10(3)/mc L [facility] Lymph % 29.9 % [facility] Lymphocytes Abs 2.9 0.9 - 3.2 x10(3)/mc L [facility] Monocyte % 9.0 % [facility] Monocyte Abs 0.9 0.3 - 0.9 x10(3)/mc L [facility] Eos % 2.7 % [facility] Eosinophils Abs 0.3 0.0 - 0.4 x10(3)/mc L [facility] Basophil % 0.7 % [facility] Baso Absolute 0.1 0.0 - 0.1 x10(3)/mc L [facility] Immature Gran % 0.70 % [facility] Comment: Immature granulocytes(IG's)percentage and absolute count will include metamyelocytes, myelocytes, and promyelocytes. Blood smears from CBCs yielding IG's will be scanned manually for concordance. If this scan disagrees with the automated IG or if promyelocytes are noted, a manual differential will be performed. Immature Gran Absolute 0.07(H) 0.00 - 0.04 x10(3)/ L [facility] Blood 11/19/2023 1:48 AM EDT 11/19/2023 2:11 AM EDT Narrative Resulting Agency Comment Spec In Lab Francis Roberts MD HEMATOLOGY ORDERABL ES [facility] [place] [place] [address] * (ABNORMAL) Hemogram (11/19/2023 1:48 AM EDT) White Blood Cell 9.8(H) 4.0 - 9.5 x10(3)/[facility] Red Blood Cell 4.05 4.00 - 5.21 x10(6)/ L [facility] Hemoglobin 9.6(L) 11.7 - 15.5 g/dL [facility] Hematocrit 32.7(L) 35.7 - 45.8 % [facility] Mean Cell Volume 80.7(L) 82.6 - 94.4 fL [facility] Mean Cell Hemoglobin 23.7(L) 27.1 - 32.0 pg [facility] Mean Cell Hemoglobin Concentration 29.4(L) 31.7 - 35.0 g/dL [facility] Platelet 534(H) 145 - 357 x10(3)/ L [facility] RDW Standard Deviation 54.8(H) 37.0 - 46.0 fL [facility] RDW coefficient of variation 18.6(H) 11.5 - 14.1 % [facility] Mean Platelet Volume 9.8 7.6 - 12.9 fL [facility] NRBC% auto 0.0 % [facility] NRBC Absolute 0.000 0.000 - 0.000 x10(3)/mc L [facility] Blood 11/19/2023 1:48 AM EDT 11/19/2023 2:11 AM EDT Narrative Resulting Agency Comment Spec In Lab Francis Roberts MD HEMATOLOGY ORDERABL ES Performing Organization Address [facility] Co de Phone Number [facility] [place] [address] * Magnesium (11/19/2023 1:48 AM EDT) Pathologist [facility] Magnesium 0.71 0.69 - 1.07 mmol/L [facility] Blood 11/19/2023 1:48 AM EDT 11/19/2023 2:11 AM EDT Narrative Resulting Agency Comment Spec In Lab Francis Roberts MD CHEMISTRY ORDERABLE S Performing Organization Address [facility] de Phone Number [facility] [place] [place] [address] * (ABNORMAL) Basic Metabolic Panel (non-fasting) (11/19/2023 1:48 AM EDT) Glucose 59(L) 65 - 199 mg/dL [facility] Comment:Diabetes: >=200 mg/d L plus symptoms Blood Urea Nitrogen 32(H) 8 - 18 mg/dL [facility] Creatinine 0.91 0.70 - 1.20 mg/dL [facility] Sodium 138 135 - 145 mmol/L [facility] Potassium 4.4 3.5 - 5.0 mmol/L [facility] Comment: Please note: ??Patients with WBC >100,000 may have falsely elevated Potassium levels. ??For accurate Potassium quantification in these patients send serum separator tube (gold top) for subsequent determinations. ??Contact the Clinical Chemistry Laboratory if there are any questions. Chloride 104 98 - 107 mmol/L [facility] Carbon Dioxide 24 22 - 31 mmol/L [facility] Anion Gap 10 5 - 15 mmol/L [facility] Calcium 9.4 8.5 - 10.5 mg/dL [facility] Est Glomerular Filtration Rate 66 >=60 mL/min/1. 73 m?? [facility] Comment: This patient's estimated GFR was [...] and symptoms in addition to eGFR. Blood 11/19/2023 1:48 AM EDT 11/19/2023 2:11 AM EDT Narrative Resulting Agency Comment Spec In Lab Francis Roberts MD CHEMISTRY ORDERABLE S [facility] [place] [address] * POCT Glucose (11/18/2023 7:34 PM EDT) Glucose, POC 95 65 - 199 mg/dL [facility] Comment: Supplemental ranges: <140 mg/dL before meals <180 mg/dL all other times of the day Blood 11/18/2023 7:34 PM EDT 11/18/2023 7:34 PM EDT Idania Matthews MD POINT OF CARE TEST ORDERABLES [facility] [place] [address] * POCT Glucose (11/18/2023 5:16 PM EDT) Glucose, POC 152 65 - 199 mg/dL [facility] Comment: Supplemental ranges: <140 mg/dL before meals <180 mg/dL all other times of the day Blood 11/18/2023 5:16 PM EDT 11/18/2023 5:16 PM EDT Idania Matthews MD POINT OF CARE TEST ORDERABLES [facility] [place] [address] * (ABNORMAL) POCT Glucose (11/18/2023 3:26 PM EDT) Glucose, POC 268(H) 65 - 199 mg/dL [facility] Comment: Supplemental ranges: <140 mg/dL before meals <180 mg/dL all other times of the day Blood 11/18/2023 3:26 PM EDT 11/18/2023 3:26 PM EDT Idania Matthews MD POINT OF CARE TEST ORDERABLES Performing Organization Address City/[facility]/ZIP Co de Phone Number [facility] [place] [address] * (ABNORMAL) POCT Glucose (11/18/2023 12:50 PM EDT) Glucose, POC 240(H) 65 - 199 mg/dL [facility] Comment: Supplemental ranges: <140 mg/dL before meals <180 mg/dL all other times of the day Blood 11/18/2023 12:5 0 PM EDT 11/18/2023 12:50 PM EDT Idania Matthews MD POINT OF CARE TEST ORDERABLES Performing Organization Address City/[facility]/ZIP Co de Phone Number [facility] [place] [place] [address] * (ABNORMAL) POCT Glucose (11/18/2023 11:03 AM EDT) Glucose, POC 258(H) 65 - 199 mg/dL [facility] Comment: Supplemental ranges: <140 mg/dL before meals <180 mg/dL all other times of the day Blood 11/18/2023 11:0 3 AM EDT 11/18/2023 11:03 AM EDT Idania Matthews MD POINT OF CARE TEST ORDERABLES Performing Organization Address [facility] Co de Phone Number [facility] [place] [address] * POCT Glucose (11/18/2023 7:32 AM EDT) Glucose, POC 109 65 - 199 mg/dL [facility] Comment: Supplemental ranges: <140 mg/dL before meals <180 mg/dL all other times of the day Blood 11/18/2023 7:32 AM EDT 11/18/2023 7:32 AM EDT Idania Matthews MD POINT OF CARE TEST ORDERABLES Performing Organization Address [facility] de Phone Number [facility] [place] [place] [address] * (ABNORMAL) Differential, Automated (11/18/2023 5:21 AM EDT) Neutrophil % 53.4 % [facility] Neutrophil Absolute 5.29 1.70 - 6.10 x10(3)/mc L [facility] Lymph % 31.7 % [facility] Lymphocytes Abs 3.1 0.9 - 3.2 x10(3)/mc L [facility] Monocyte % 11.0 % [facility] Monocyte Abs 1.1(H) 0.3 - 0.9 x10(3)/mc L [facility] Eos % 2.3 % [facility] Eosinophils Abs 0.2 0.0 - 0.4 x10(3)/[facility] Basophil % 0.8 % [facility] Baso Absolute 0.1 0.0 - 0.1 x10(3)/[facility] Immature Gran % 0.80 % [facility] Comment: Immature granulocytes(IG's)percentage and absolute count will include metamyelocytes, myelocytes, and promyelocytes. Blood smears from CBCs yielding IG's will be scanned manually for concordance. If this scan disagrees with the automated IG or if promyelocytes are noted, a manual differential will be performed. Immature Gran Absolute 0.08(H) 0.00 - 0.04 x10(3)/[facility] Blood 11/18/2023 5:21 AM EDT 11/18/2023 5:33 AM EDT Narrative Resulting Agency Comment Spec In Lab Francis Roberts MD HEMATOLOGY ORDERABL ES [facility] [place] [address] * (ABNORMAL) Hemogram (11/18/2023 5:21 AM EDT) White Blood Cell 9.9(H) 4.0 - 9.5 x10(3)/[facility] Red Blood Cell 4.16 4.00 - 5.21 x10(6)/[facility] Hemoglobin 9.9(L) 11.7 - 15.5 g/dL [facility] Hematocrit 33.4(L) 35.7 - 45.8 % [facility] Mean Cell Volume 80.3(L) 82.6 - 94.4 fL [facility] Mean Cell Hemoglobin 23.8(L) 27.1 - 32.0 pg [facility] Mean Cell Hemoglobin Concentration 29.6(L) 31.7 - 35.0 g/dL [facility] Platelet 472(H) 145 - 357 x10(3)/mc L [facility] RDW Standard Deviation 54.4(H) 37.0 - 46.0 fL [facility] RDW coefficient of variation 18.9(H) 11.5 - 14.1 % [facility] Mean Platelet Volume 10.2 7.6 - 12.9 [facility] NRBC% auto 0.0 % [facility] NRBC Absolute 0.000 0.000 - 0.000 x10(3)/mc L [facility] Blood 11/18/2023 5:21 AM EDT 11/18/2023 5:33 AM EDT Narrative Resulting Agency Comment Spec In Lab Francis Roberts MD HEMATOLOGY ORDERABL ES Performing Organization Address [facility] de Phone Number [facility] [place] [place] [address] * Magnesium (11/18/2023 5:21 AM EDT) Magnesium 0.79 0.69 - 1.07 mmol/L [facility] Blood 11/18/2023 5:21 AM EDT 11/18/2023 5:33 AM EDT Narrative Resulting Agency Comment Spec In Lab Francis Roberts MD CHEMISTRY ORDERABLE S Performing Organization Address [facility] Co de Phone Number [facility] [place] [address] * (ABNORMAL) Basic Metabolic Panel (non-fasting) (11/18/2023 5:21 AM EDT) Glucose 104 65 - 199 mg/dL [facility] Comment:Diabetes: >=200 mg/d L plus symptoms Blood Urea Nitrogen 35(H) 8 - 18 mg/dL [facility] Creatinine 1.32(H) 0.70 - 1.20 mg/dL [facility] Sodium 135 135 - 145 mmol/L [facility] Potassium 4.9 3.5 - 5.0 mmol/L [facility] Comment: Please note: ??Patients with WBC >100,000 may have falsely elevated Potassium levels. ??For accurate Potassium quantification in these patients send serum separator tube (gold top) for subsequent determinations. ??Contact the Clinical Chemistry Laboratory if there are any questions. Chloride 101 98 - 107 mmol/L [facility] Carbon Dioxide 24 22 - 31 mmol/L [facility] Anion Gap 10 5 - 15 mmol/L [facility] Calcium 10.2 8.5 - 10.5 mg/dL [facility] Est Glomerular Filtration Rate 42(L) >=60 mL/min/1. 73 m?? [facility] Comment: This patient's estimated GFR was [...] and symptoms in addition to eGFR. Blood 11/18/2023 5:21 AM EDT 11/18/2023 5:33 AM EDT Narrative Resulting Agency Comment Spec In Lab Francis Roberts MD CHEMISTRY ORDERABLE S [facility] [place] [address] * POCT Glucose (11/17/2023 11:36 PM EDT) Glucose, POC 109 65 - 199 mg/dL [facility] Comment: Supplemental ranges: <140 mg/dL before meals <180 mg/dL all other times of the day Blood 11/17/2023 11:3 6 PM EDT 11/17/2023 11:36 PM EDT Idania Matthews MD POINT OF CARE TEST ORDERABLES Performing Organization Address City/[facility] Co de Phone Number [facility] [place] [address] * (ABNORMAL) POCT Glucose (11/17/2023 4:35 PM EDT) Glucose, POC 212(H) 65 - 199 mg/dL [facility] Comment: Supplemental ranges: <140 mg/dL before meals <180 mg/dL all other times of the day Blood 11/17/2023 4:35 PM EDT 11/17/2023 4:35 PM EDT Idania Matthews MD POINT OF CARE TEST ORDERABLES Performing Organization Address [facility] Co de Phone Number [facility] [place] [address] * (ABNORMAL) POCT Glucose (11/17/2023 1:49 PM EDT) Glucose, POC 310(H) 65 - 199 mg/dL [facility] Comment: Supplemental ranges: <140 mg/dL before meals <180 mg/dL all other times of the day Blood 11/17/2023 1:49 PM EDT 11/17/2023 1:49 PM EDT Idania Matthews MD POINT OF CARE TEST ORDERABLES Performing Organization Address City/[facility] Co de Phone Number [facility] [place] [place] [address] * (ABNORMAL) POCT Glucose (11/17/2023 11:44 AM EDT) Glucose, POC 259(H) 65 - 199 mg/dL [facility] Comment: Supplemental ranges: <140 mg/dL before meals <180 mg/dL all other times of the day Blood 11/17/2023 11:4 4 AM EDT 11/17/2023 11:44 AM EDT Idania Matthews MD POINT OF CARE TEST ORDERABLES [facility] [place] [address] * POCT Glucose (11/17/2023 8:08 AM EDT) Glucose, POC 117 65 - 199 mg/dL [facility] Comment: Supplemental ranges: <140 mg/dL before meals <180 mg/dL all other times of the day Blood 11/17/2023 8:08 AM EDT 11/17/2023 8:08 AM EDT Idania Matthews MD POINT OF CARE TEST ORDERABLES Performing Organization Address City/[facility]/ZIP Co de Phone Number [facility] [place] [address] * (ABNORMAL) Differential, Automated (11/17/2023 5:13 AM EDT) [facility] Neutrophil % 57.9 % [facility] Neutrophil Absolute 4.96 1.70 - 6.10 x10(3)/mc L [facility] Lymph % 27.8 % [facility] Lymphocytes Abs 2.4 0.9 - 3.2 x10(3)/mc L [facility] Monocyte % 10.0 % [facility] Monocyte Abs 0.9 0.3 - 0.9 x10(3)/mc L [facility] Eos % 2.6 % [facility] Eosinophils Abs 0.2 0.0 - 0.4 x10(3)/mc L [facility] Basophil % 0.8 % [facility] Baso Absolute 0.1 0.0 - 0.1 x10(3)/mc L [facility] Immature Gran % 0.90 % [facility] Comment: Immature granulocytes(IG's)percentage and absolute count will include metamyelocytes, myelocytes, and promyelocytes. Blood smears from CBCs yielding IG's will be scanned manually for concordance. If this scan disagrees with the automated IG or if promyelocytes are noted, a manual differential will be performed. Immature Gran Absolute 0.08(H) 0.00 - 0.04 x10(3)/[facility] Blood 11/17/2023 5:13 AM EDT 11/17/2023 5:44 AM EDT Narrative Resulting Agency Comment Spec In Lab Francis Roberts MD HEMATOLOGY ORDERABL ES [facility] [place] [address] * (ABNORMAL) Hemogram (11/17/2023 5:13 AM EDT) White Blood Cell 8.6 4.0 - 9.5 x10(3)/[facility] Red Blood Cell 4.46 4.00 - 5.21 x10(6)/[facility] Hemoglobin 10.6(L) 11.7 - 15.5 g/dL [facility] Hematocrit 36.3 35.7 - 45.8 % [facility] Mean Cell Volume 81.4(L) 82.6 - 94.4 fL [facility] Mean Cell Hemoglobin 23.8(L) 27.1 - 32.0 pg [facility] Mean Cell Hemoglobin Concentration 29.2(L) 31.7 - 35.0 g/dL [facility] Platelet 524(H) 145 - 357 x10(3)/[facility] RDW Standard Deviation 55.8(H) 37.0 - 46.0 fL [facility] RDW coefficient of variation 19.0(H) 11.5 - 14.1 % [facility] Mean Platelet Volume 10.3 7.6 - 12.9 fL [facility] NRBC% auto 0.0 % [facility] NRBC Absolute 0.000 0.000 - 0.000 x10(3)/mc L [facility] Blood 11/17/2023 5:13 AM EDT 11/17/2023 5:44 AM EDT Narrative Resulting Agency Comment Spec In Lab Francis Roberts MD HEMATOLOGY ORDERABL ES Performing Organization Address City/[facility]/ZIP Co de Phone Number [facility] [place] [address] * Magnesium (11/17/2023 5:13 AM EDT) Magnesium 0.73 0.69 - 1.07 mmol/L [facility] Blood 11/17/2023 5:13 AM EDT 11/17/2023 5:44 AM EDT Narrative Resulting Agency Comment Spec In Lab Francis Roberts MD CHEMISTRY ORDERABLE S Performing Organization Address City/[facility] Co de Phone Number [facility] [place] [address] * (ABNORMAL) Basic Metabolic Panel (non-fasting) (11/17/2023 5:13 AM EDT) Glucose 111 65 - 199 mg/dL [facility] Comment:Diabetes: >=200 mg/d L plus symptoms Blood Urea Nitrogen 25(H) 8 - 18 mg/dL [facility] Creatinine 0.96 0.70 - 1.20 mg/dL [facility] Sodium 139 135 - 145 mmol/L [facility] Potassium 4.7 3.5 - 5.0 mmol/L [facility] Comment: Please note: ??Patients with WBC >100,000 may have falsely elevated Potassium levels. ??For accurate Potassium quantification in these patients send serum separator tube (gold top) for subsequent determinations. ??Contact the Clinical Chemistry Laboratory if there are any questions. Chloride 103 98 - 107 mmol/L [facility] Carbon Dioxide 23 22 - 31 mmol/L [facility] Anion Gap 13 5 - 15 mmol/L [facility] Calcium 9.8 8.5 - 10.5 mg/dL [facility] Est Glomerular Filtration Rate 62 >=60 mL/min/1. 73 m?? [facility] Comment: This patient's estimated GFR was [...] and symptoms in addition to eGFR. Blood 11/17/2023 5:13 AM EDT 11/17/2023 5:44 AM EDT Narrative Resulting Agency Comment Spec In Lab Francis Roberts MD CHEMISTRY ORDERABLE S [facility] [place] [address] * POCT Glucose (11/17/2023 3:50 AM EDT) Glucose, POC 69 65 - 199 mg/dL [facility] Comment: Supplemental ranges: <140 mg/dL before meals <180 mg/dL all other times of the day Blood 11/17/2023 3:50 AM EDT 11/17/2023 3:50 AM EDT Idania Matthews MD POINT OF CARE TEST ORDERABLES [facility] [place] [address] * POCT Glucose (11/16/2023 11:45 PM EDT) Glucose, POC 90 65 - 199 mg/dL [facility] Comment: Supplemental ranges: <140 mg/dL before meals <180 mg/dL all other times of the day Blood 11/16/2023 11:4 5 PM EDT 11/16/2023 11:45 PM EDT Idania Matthews MD POINT OF CARE TEST ORDERABLES Performing Organization Address City/[facility]/ZIP Co de Phone Number [facility] [place] [address] * POCT Glucose (11/16/2023 7:29 PM EDT) Glucose, POC 128 65 - 199 mg/dL [facility] Comment: Supplemental ranges: <140 mg/dL before meals <180 mg/dL all other times of the day Blood 11/16/2023 7:29 PM EDT 11/16/2023 7:29 PM EDT Idania Matthews MD POINT OF CARE TEST ORDERABLES Performing Organization Address City/[facility]/ZIP Co de Phone Number [facility] [place] [address] * POCT Glucose (11/16/2023 3:05 PM EDT) Glucose, POC 122 65 - 199 mg/dL [facility] Comment: Supplemental ranges: <140 mg/dL before meals <180 mg/dL all other times of the day Blood 11/16/2023 3:05 PM EDT 11/16/2023 3:05 PM EDT Idania Matthews MD POINT OF CARE TEST ORDERABLES [facility] [address] * (ABNORMAL) POCT Glucose (11/16/2023 11:31 AM EDT) Glucose, POC 227(H) 65 - 199 mg/dL [facility] Comment: Supplemental ranges: <140 mg/dL before meals <180 mg/dL all other times of the day Blood 11/16/2023 11:3 1 AM EDT 11/16/2023 11:31 AM EDT Idania Matthews MD POINT OF CARE TEST ORDERABLES Performing Organization Address City/[facility]/ZIP Co de Phone Number [facility] [place] [address] * POCT Glucose (11/16/2023 8:00 AM EDT) Glucose, POC 86 65 - 199 mg/dL [facility] Comment: Supplemental ranges: <140 mg/dL before meals <180 mg/dL all other times of the day Blood 11/16/2023 8:00 AM EDT 11/16/2023 8:00 AM EDT Idania Matthews MD POINT OF CARE TEST ORDERABLES Performing Organization Address [facility] Co de Phone Number [facility] [place] [place] [address] * POCT Glucose (11/16/2023 3:36 AM EDT) Glucose, POC 105 65 - 199 mg/dL [facility] Comment: Supplemental ranges: <140 mg/dL before meals <180 mg/dL all other times of the day Blood 11/16/2023 3:36 AM EDT 11/16/2023 3:36 AM EDT Idania Matthews MD POINT OF CARE TEST ORDERABLES Performing Organization Address City/[facility] Co de Phone Number [facility] [place] [address] * (ABNORMAL) Differential, Automated (11/16/2023 3:22 AM EDT) Neutrophil % 59.5 % [facility] Neutrophil Absolute 4.81 1.70 - 6.10 x10(3)/[facility] Lymph % 27.5 % [facility] Lymphocytes Abs 2.2 0.9 - 3.2 x10(3)/[facility] Monocyte % 10.4 % [facility] Monocyte Abs 0.8 0.3 - 0.9 x10(3)/[facility] Eos % 1.1 % [facility] Eosinophils Abs 0.1 0.0 - 0.4 x10(3)/[facility] Basophil % 0.6 % [facility] Baso Absolute 0.0 0.0 - 0.1 x10(3)/[facility] Immature Gran % 0.90 % [facility] Comment: Immature granulocytes(IG's)percentage and absolute count will include metamyelocytes, myelocytes, and promyelocytes. Blood smears from CBCs yielding IG's will be scanned manually for concordance. If this scan disagrees with the automated IG or if promyelocytes are noted, a manual differential will be performed. Immature Gran Absolute 0.07(H) 0.00 - 0.04 x10(3)/[facility] Blood 11/16/2023 3:22 AM EDT 11/16/2023 3:51 AM EDT Narrative Resulting Agency Comment Spec In Lab Francis Roberts MD HEMATOLOGY ORDERABL ES [facility] [place] [address] * (ABNORMAL) Hemogram (11/16/2023 3:22 AM EDT) White Blood Cell 8.1 4.0 - 9.5 x10(3)/[facility] Red Blood Cell 4.29 4.00 - 5.21 x10(6)/[facility] Hemoglobin 9.9(L) 11.7 - 15.5 g/dL [facility] Hematocrit 33.9(L) 35.7 - 45.8 % [facility] Mean Cell Volume 79.0(L) 82.6 - 94.4 fL [facility] Mean Cell Hemoglobin 23.1(L) 27.1 - 32.0 pg [facility] Mean Cell Hemoglobin Concentration 29.2(L) 31.7 - 35.0 g/dL [facility] Platelet 555(H) 145 - 357 x10(3)/mc L [facility] RDW Standard Deviation 53.9(H) 37.0 - 46.0 fL [facility] RDW coefficient of variation 18.9(H) 11.5 - 14.1 % [facility] Mean Platelet Volume 10.0 7.6 - 12.9 fL [facility] NRBC% auto 0.0 % [facility] NRBC Absolute 0.000 0.000 - 0.000 x10(3)/mc L [facility] Blood 11/16/2023 3:22 AM EDT 11/16/2023 3:51 AM EDT Narrative Resulting Agency Comment Spec In Lab Francis Roberts MD HEMATOLOGY ORDERABL ES Performing Organization Address [facility] Co de Phone Number [facility] [place] [address] * Magnesium (11/16/2023 3:22 AM EDT) Magnesium 0.72 0.69 - 1.07 mmol/L [facility] Blood 11/16/2023 3:22 AM EDT 11/16/2023 3:50 AM EDT Narrative Resulting Agency Comment Spec In Lab Francis Roberts MD CHEMISTRY ORDERABLE S Performing Organization Address [facility]/ZIP Co de Phone Number [facility] [place] [address] * (ABNORMAL) Basic Metabolic Panel (non-fasting) (11/16/2023 3:22 AM EDT) Glucose 125 65 - 199 mg/dL [facility] Comment:Diabetes: >=200 mg/d L plus symptoms Blood Urea Nitrogen 19(H) 8 - 18 mg/dL [facility] Creatinine 0.71 0.70 - 1.20 mg/dL [facility] Sodium 140 135 - 145 mmol/L [facility] Potassium 4.3 3.5 - 5.0 mmol/L [facility] Comment: Please note: ??Patients with WBC >100,000 may have falsely elevated Potassium levels. ??For accurate Potassium quantification in these patients send serum separator tube (gold top) for subsequent determinations. ??Contact the Clinical Chemistry Laboratory if there are any questions. Chloride 105 98 - 107 mmol/L [facility] Carbon Dioxide 25 22 - 31 mmol/L [facility] Anion Gap 10 5 - 15 mmol/L [facility] Calcium 9.9 8.5 - 10.5 mg/dL [facility] Est Glomerular Filtration Rate 89 >=60 mL/min/1. 73 m?? [facility] Comment: This patient's estimated GFR was [...] and symptoms in addition to eGFR. Blood 11/16/2023 3:22 AM EDT 11/16/2023 3:50 AM EDT Narrative Resulting Agency Comment Spec In Lab Francis Roberts MD CHEMISTRY ORDERABLE S [facility] [place] [address] * (ABNORMAL) POCT Glucose (11/15/2023 11:27 PM EDT) Glucose, POC 264(H) 65 - 199 mg/dL [facility] Comment: Supplemental ranges: <140 mg/dL before meals <180 mg/dL all other times of the day Blood 11/15/2023 11:2 7 PM EDT 11/15/2023 11:27 PM EDT Idania Matthews MD POINT OF CARE TEST ORDERABLES [facility] [place] [address] * POCT Glucose (11/15/2023 8:03 PM EDT) Glucose, POC 174 65 - 199 mg/dL [facility] Comment: Supplemental ranges: <140 mg/dL before meals <180 mg/dL all other times of the day Blood 11/15/2023 8:03 PM EDT 11/15/2023 8:03 PM EDT Idania Matthews MD POINT OF CARE TEST ORDERABLES [facility] [place] [address] * POCT Glucose (11/15/2023 6:38 PM EDT) Glucose, POC 70 65 - 199 mg/dL [facility] Comment: Supplemental ranges: <140 mg/dL before meals <180 mg/dL all other times of the day Blood 11/15/2023 6:38 PM EDT 11/15/2023 6:38 PM EDT Idania Matthews MD POINT OF CARE TEST ORDERABLES [facility] [place] [address] * (ABNORMAL) POCT Glucose (11/15/2023 6:18 PM EDT) Glucose, POC 52(Critica l) 65 - 199 mg/dL [facility] Comment: Supplemental ranges: <140 mg/dL before meals <180 mg/dL all other times of the day Blood 11/15/2023 6:18 PM EDT 11/15/2023 6:18 PM EDT Idania Matthews MD POINT OF CARE TEST ORDERABLES [facility] [place] [address] * (ABNORMAL) POCT Glucose (11/15/2023 6:02 PM EDT) Glucose, POC 55(L) 65 - 199 mg/dL [facility] Comment: Supplemental ranges: <140 mg/dL before meals <180 mg/dL all other times of the day Blood 11/15/2023 6:02 PM EDT 11/15/2023 6:02 PM EDT Idania Matthews MD POINT OF CARE TEST ORDERABLES [facility] [place] [address] * POCT Glucose (11/15/2023 3:42 PM EDT) Glucose, POC 159 65 - 199 mg/dL [facility] Comment: Supplemental ranges: <140 mg/dL before meals <180 mg/dL all other times of the day Blood 11/15/2023 3:42 PM EDT 11/15/2023 3:42 PM EDT Idania Matthews MD POINT OF CARE TEST ORDERABLES [facility] [place] [address] * EKG 12 Lead (11/15/2023 2:56 PM EDT) Ventricular rate 100 BPM MUSE SYSTEM QRS Duration 74 ms MUSE SYSTEM Q-T Interval 352 ms MUSE SYSTEM QTC Calculated (Bezet) 454 ms MUSE SYSTEM Calculated R Kennett 34 degrees MUSE SYSTEM Calculated T Kennett 8 degrees MUSE SYSTEM INTERPRETATION Atrial fibrillation Low voltage QRS Abnormal ECG When compared with ECG of 05-NOV-2023 03:10, No significant change was found Confirmed by MD Justus, Rafat ([id number]) on 12/18/2023 11:15:26 AM MUSE SYSTEM 11/15/2023 2:56 PM EDT 12/18/2023 11:15 AM EDT Idania Matthews MD ECG ORDERABLES MUSE SYSTEM * POCT Glucose (11/15/2023 2:38 PM EDT) Glucose, POC 193 65 - 199 mg/dL [facility] Comment: Supplemental ranges: <140 mg/dL before meals <180 mg/dL all other times of the day Blood 11/15/2023 2:38 PM EDT 11/15/2023 2:38 PM EDT Idania Matthews MD POINT OF CARE TEST ORDERABLES [facility] [place] [address] * (ABNORMAL) POCT Glucose (11/15/2023 12:28 PM EDT) Glucose, POC 249(H) 65 - 199 mg/dL [facility] Comment: Supplemental ranges: <140 mg/dL before meals <180 mg/dL all other times of the day Blood 11/15/2023 12:2 8 PM EDT 11/15/2023 12:28 PM EDT Idania Matthews MD POINT OF CARE TEST ORDERABLES Performing Organization Address [facility] Co de Phone Number [facility] [place] [address] * (ABNORMAL) POCT Glucose (11/15/2023 10:32 AM EDT) Glucose, POC 275(H) 65 - 199 mg/dL [facility] Comment: Supplemental ranges: <140 mg/dL before meals <180 mg/dL all other times of the day Blood 11/15/2023 10:3 2 AM EDT 11/15/2023 10:32 AM EDT Idania Matthews MD POINT OF CARE TEST ORDERABLES Performing Organization Address [facility] Co de Phone Number [facility] [place] [address] * (ABNORMAL) POCT Glucose (11/15/2023 8:24 AM EDT) Glucose, POC 254(H) 65 - 199 mg/dL [facility] Comment: Supplemental ranges: <140 mg/dL before meals <180 mg/dL all other times of the day Blood 11/15/2023 8:24 AM EDT 11/15/2023 8:24 AM EDT Idania Matthews MD POINT OF CARE TEST ORDERABLES Performing Organization Address [facility] Co de Phone Number [facility] [place] [address] * (ABNORMAL) Differential, Automated (11/15/2023 3:57 AM EDT) Neutrophil % 75.7 % [facility] Neutrophil Absolute 7.24(H) 1.70 - 6.10 x10(3)/mc L [facility] Lymph % 13.4 % [facility] Lymphocytes Abs 1.3 0.9 - 3.2 x10(3)/mc L [facility] Monocyte % 8.9 % [facility] Monocyte Abs 0.8 0.3 - 0.9 x10(3)/[facility] Eos % 0.6 % [facility] Eosinophils Abs 0.1 0.0 - 0.4 x10(3)/[facility] Basophil % 0.5 % [facility] Baso Absolute 0.0 0.0 - 0.1 x10(3)/[facility] Immature Gran % 0.90 % [facility] Comment: Immature granulocytes(IG's)percentage and absolute count will include metamyelocytes, myelocytes, and promyelocytes. Blood smears from CBCs yielding IG's will be scanned manually for concordance. If this scan disagrees with the automated IG or if promyelocytes are noted, a manual differential will be performed. Immature Gran Absolute 0.09(H) 0.00 - 0.04 x10(3)/[facility] Blood 11/15/2023 3:57 AM EDT 11/15/2023 4:07 AM EDT Narrative Resulting Agency Comment Spec In Lab Francis Roberts MD HEMATOLOGY ORDERABL ES [facility] [place] [address] * (ABNORMAL) Hemogram (11/15/2023 3:57 AM EDT) White Blood Cell 9.6(H) 4.0 - 9.5 x10(3)/[facility] Red Blood Cell 4.76 4.00 - 5.21 x10(6)/[facility] Hemoglobin 11.1(L) 11.7 - 15.5 g/dL [facility] Hematocrit 38.9 35.7 - 45.8 % [facility] Mean Cell Volume 81.7(L) 82.6 - 94.4 fL [facility] Mean Cell Hemoglobin 23.3(L) 27.1 - 32.0 pg [facility] Mean Cell Hemoglobin Concentration 28.5(L) 31.7 - 35.0 g/dL [facility] Platelet 555(H) 145 - 357 x10(3)/mc L [facility] RDW Standard Deviation 55.8(H) 37.0 - 46.0 fL [facility] RDW coefficient of variation 18.8(H) 11.5 - 14.1 % [facility] Mean Platelet Volume 9.9 7.6 - 12.9 fL [facility] NRBC% auto 0.0 % [facility] NRBC Absolute 0.000 0.000 - 0.000 x10(3)/mc L [facility] Blood 11/15/2023 3:57 AM EDT 11/15/2023 4:07 AM EDT Narrative Resulting Agency Comment Spec In Lab Francis Roberts MD HEMATOLOGY ORDERABL ES Performing Organization Address City/[facility]/ZIP Co de Phone Number [facility] [place] [address] * Magnesium (11/15/2023 3:57 AM EDT) Pathologist [facility] Magnesium 0.84 0.69 - 1.07 mmol/L [facility] Blood 11/15/2023 3:57 AM EDT 11/15/2023 4:07 AM EDT Narrative Resulting Agency Comment Spec In Lab Francis Roberts MD CHEMISTRY ORDERABLE S Performing Organization Address City/[facility]/ZIP Co de Phone Number [facility] [place] [address] * (ABNORMAL) Basic Metabolic Panel (non-fasting) (11/15/2023 3:57 AM EDT) Glucose 135 65 - 199 mg/dL [facility] Comment:Diabetes: >=200 mg/d L plus symptoms Blood Urea Nitrogen 21(H) 8 - 18 mg/dL [facility] Creatinine 0.79 0.70 - 1.20 mg/dL [facility] Sodium 137 135 - 145 mmol/L [facility] Potassium 5.0 3.5 - 5.0 mmol/L [facility] Comment: Please note: ??Patients with WBC >100,000 may have falsely elevated Potassium levels. ??For accurate Potassium quantification in these patients send serum separator tube (gold top) for subsequent determinations. ??Contact the Clinical Chemistry Laboratory if there are any questions. Chloride 104 98 - 107 mmol/L [facility] Carbon Dioxide 24 22 - 31 mmol/L [facility] Anion Gap 9 5 - 15 mmol/L [facility] Calcium 9.8 8.5 - 10.5 mg/dL [facility] Est Glomerular Filtration Rate 78 >=60 mL/min/1. 73 m?? [facility] Comment: This patient's estimated GFR was [...] and symptoms in addition to eGFR. Blood 11/15/2023 3:57 AM EDT 11/15/2023 4:07 AM EDT Narrative Resulting Agency Comment Spec In Lab Francis Roberts MD CHEMISTRY ORDERABLE S [facility] [place] [address] * POCT Glucose (11/15/2023 3:42 AM EDT) Glucose, POC 128 65 - 199 mg/dL [facility] Comment: Supplemental ranges: <140 mg/dL before meals <180 mg/dL all other times of the day Blood 11/15/2023 3:42 AM EDT 11/15/2023 3:42 AM EDT Idania Matthews MD POINT OF CARE TEST ORDERABLES Performing Organization Address City/[facility]/ZIP Co de Phone Number [facility] [place] [address] * POCT Glucose (11/15/2023 1:01 AM EDT) Glucose, POC 81 65 - 199 mg/dL [facility] Comment: Supplemental ranges: <140 mg/dL before meals <180 mg/dL all other times of the day Blood 11/15/2023 1:01 AM EDT 11/15/2023 1:01 AM EDT Idania Matthews MD POINT OF CARE TEST ORDERABLES Performing Organization Address City/[facility]/ZIP Co de Phone Number [facility] [place] [address] * (ABNORMAL) POCT Glucose (11/15/2023 12:37 AM EDT) Glucose, POC 58(L) 65 - 199 mg/dL [facility] Comment: Supplemental ranges: <140 mg/dL before meals <180 mg/dL all other times of the day Blood 11/15/2023 12:3 7 AM EDT 11/15/2023 12:37 AM EDT Idania Matthews MD POINT OF CARE TEST ORDERABLES Performing Organization Address City/[facility]/ZIP Co de Phone Number [facility] [place] [address] * POCT Glucose (11/14/2023 8:36 PM EDT) Glucose, POC 149 65 - 199 mg/dL [facility] Comment: Supplemental ranges: <140 mg/dL before meals <180 mg/dL all other times of the day Blood 11/14/2023 8:36 PM EDT 11/14/2023 8:36 PM EDT Idania Matthews MD POINT OF CARE TEST ORDERABLES [facility] [place] [address] * POCT Glucose (11/14/2023 4:33 PM EDT) Glucose, POC 175 65 - 199 mg/dL [facility] Comment: Supplemental ranges: <140 mg/dL before meals <180 mg/dL all other times of the day Blood 11/14/2023 4:33 PM EDT 11/14/2023 4:33 PM EDT Idania Matthews MD POINT OF CARE TEST ORDERABLES [facility] [place] [address] * POCT Glucose (11/14/2023 12:09 PM EDT) Glucose, POC 162 65 - 199 mg/dL [facility] Comment: Supplemental ranges: <140 mg/dL before meals <180 mg/dL all other times of the day Blood 11/14/2023 12:0 9 PM EDT 11/14/2023 12:09 PM EDT dIania Matthews MD POINT OF CARE TEST ORDERABLES [facility] [address] * POCT Glucose (11/14/2023 9:16 AM EDT) Glucose, POC 109 65 - 199 mg/dL [facility] Comment: Supplemental ranges: <140 mg/dL before meals <180 mg/dL all other times of the day Blood 11/14/2023 9:16 AM EDT 11/14/2023 9:16 AM EDT Idania Matthews MD POINT OF CARE TEST ORDERABLES [facility] [place] [address] * POCT Glucose (11/14/2023 7:38 AM EDT) Glucose, POC 93 65 - 199 mg/dL [facility] Comment: Supplemental ranges: <140 mg/dL before meals <180 mg/dL all other times of the day Blood 11/14/2023 7:38 AM EDT 11/14/2023 7:38 AM EDT Idania Matthews MD POINT OF CARE TEST ORDERABLES Performing Organization Address City/[facility]/ZIP Co de Phone Number [facility] [place] [phone] * (ABNORMAL) Differential, Automated (11/14/2023 4:33 AM EDT) Pathologist [facility] Neutrophil % 57.8 % [facility] Neutrophil Absolute 5.08 1.70 - 6.10 x10(3)/mc L [facility] Lymph % 25.2 % [facility] Lymphocytes Abs 2.2 0.9 - 3.2 x10(3)/mc L [facility] Monocyte % 12.4 % [facility] Monocyte Abs 1.1(H) 0.3 - 0.9 x10(3)/mc L [facility] Eos % 2.7 % [facility] Eosinophils Abs 0.2 0.0 - 0.4 x10(3)/mc L [facility] Basophil % 0.8 % [facility] Baso Absolute 0.1 0.0 - 0.1 x10(3)/mc L [facility] Immature Gran % 1.10 % [facility] Comment: Immature granulocytes(IG's)percentage and absolute count will include metamyelocytes, myelocytes, and promyelocytes. Blood smears from CBCs yielding IG's will be scanned manually for concordance. If this scan disagrees with the automated IG or if promyelocytes are noted, a manual differential will be performed. Immature Gran Absolute 0.10(H) 0.00 - 0.04 x10(3)/ L [facility] Blood 11/14/2023 4:33 AM EDT 11/14/2023 5:31 AM EDT Narrative Resulting Agency Comment Spec In Lab Francis Roberts MD HEMATOLOGY ORDERABL ES [facility] [place] [address] * (ABNORMAL) Hemogram (11/14/2023 4:33 AM EDT) White Blood Cell 8.8 4.0 - 9.5 x10(3)/[facility] Red Blood Cell 4.33 4.00 - 5.21 x10(6)/ L [facility] Hemoglobin 10.0(L) 11.7 - 15.5 g/dL [facility] Hematocrit 34.3(L) 35.7 - 45.8 % [facility] Mean Cell Volume 79.2(L) 82.6 - 94.4 fL [facility] Mean Cell Hemoglobin 23.1(L) 27.1 - 32.0 pg [facility] Mean Cell Hemoglobin Concentration 29.2(L) 31.7 - 35.0 g/dL [facility] Platelet 530(H) 145 - 357 x10(3)/ L [facility] RDW Standard Deviation 54.4(H) 37.0 - 46.0 fL [facility] RDW coefficient of variation 18.8(H) 11.5 - 14.1 % [facility] Mean Platelet Volume 10.2 7.6 - 12.9 fL [facility] NRBC% auto 0.0 % [facility] NRBC Absolute 0.000 0.000 - 0.000 x10(3)/mc L [facility] Blood 11/14/2023 4:33 AM EDT 11/14/2023 5:31 AM EDT Narrative Resulting Agency Comment Spec In Lab Francis Roberts MD HEMATOLOGY ORDERABL ES Performing Organization Address [facility] Co de Phone Number [facility] [place] [address] * (ABNORMAL) Magnesium (11/14/2023 4:33 AM EDT) Magnesium 0.66(L) 0.69 - 1.07 mmol/L [facility] Blood 11/14/2023 4:33 AM EDT 11/14/2023 5:31 AM EDT Narrative Resulting Agency Comment Spec In Lab Francis Roberts MD CHEMISTRY ORDERABLE S Performing Organization Address [facility] de Phone Number [facility] [place] [address] * (ABNORMAL) Basic Metabolic Panel (non-fasting) (11/14/2023 4:33 AM EDT) Glucose 72 65 - 199 mg/dL [facility] Comment:Diabetes: >=200 mg/d L plus symptoms Blood Urea Nitrogen 26(H) 8 - 18 mg/dL [facility] Creatinine 0.79 0.70 - 1.20 mg/dL [facility] Sodium 142 135 - 145 mmol/L [facility] Potassium 4.4 3.5 - 5.0 mmol/L [facility] Comment: Please note: ??Patients with WBC >100,000 may have falsely elevated Potassium levels. ??For accurate Potassium quantification in these patients send serum separator tube (gold top) for subsequent determinations. ??Contact the Clinical Chemistry Laboratory if there are any questions. Chloride 107 98 - 107 mmol/L [facility] Carbon Dioxide 24 22 - 31 mmol/L [facility] Anion Gap 11 5 - 15 mmol/L [facility] Calcium 9.5 8.5 - 10.5 mg/dL [facility] Est Glomerular Filtration Rate 78 >=60 mL/min/1. 73 m?? [facility] Comment: This patient's estimated GFR was [...] and symptoms in addition to eGFR. Blood 11/14/2023 4:33 AM EDT 11/14/2023 5:31 AM EDT Narrative Resulting Agency Comment Spec In Lab Francis Roberts MD CHEMISTRY ORDERABLE S [facility] [place] [id number] * POCT Glucose (11/14/2023 4:21 AM EDT) Glucose, POC 81 65 - 199 mg/dL [facility] Comment: Supplemental ranges: <140 mg/dL before meals <180 mg/dL all other times of the day Blood 11/14/2023 4:21 AM EDT 11/14/2023 4:21 AM EDT Francis Roberts MD POINT OF CARE TEST ORDERABLES [facility] [place] [address] * POCT Glucose (11/14/2023 12:10 AM EDT) Glucose, POC 126 65 - 199 mg/dL [facility] Comment: Supplemental ranges: <140 mg/dL before meals <180 mg/dL all other times of the day Blood 11/14/2023 12:1 0 AM EDT 11/14/2023 12:10 AM EDT Francis Roberts MD POINT OF CARE TEST ORDERABLES Performing Organization Address City/[facility]/ZIP Co de Phone Number [facility] [place] [address] * (ABNORMAL) POCT Glucose (11/13/2023 9:45 PM EDT) Glucose, POC 200(H) 65 - 199 mg/dL [facility] Comment: Supplemental ranges: <140 mg/dL before meals <180 mg/dL all other times of the day Blood 11/13/2023 9:45 PM EDT 11/13/2023 9:45 PM EDT Francis Roberts MD POINT OF CARE TEST ORDERABLES Performing Organization Address [facility] Co de Phone Number [facility] [place] [address] * (ABNORMAL) POCT Glucose (11/13/2023 7:20 PM EDT) Glucose, POC 245(H) 65 - 199 mg/dL [facility] Comment: Supplemental ranges: <140 mg/dL before meals <180 mg/dL all other times of the day Blood 11/13/2023 7:20 PM EDT 11/13/2023 7:20 PM EDT Francis Roberts MD POINT OF CARE TEST ORDERABLES Performing Organization Address City/[facility]/ZIP Co de Phone Number [facility] [place] [place] [address] * (ABNORMAL) POCT Glucose (11/13/2023 4:17 PM EDT) Glucose, POC 263(H) 65 - 199 mg/dL [facility] Comment: Supplemental ranges: <140 mg/dL before meals <180 mg/dL all other times of the day Blood 11/13/2023 4:17 PM EDT 11/13/2023 4:17 PM EDT Francis Roberts MD POINT OF CARE TEST ORDERABLES [facility] [place] [address] * POCT Glucose (11/13/2023 1:53 PM EDT) Glucose, POC 171 65 - 199 mg/dL [facility] Comment: Supplemental ranges: <140 mg/dL before meals <180 mg/dL all other times of the day Blood 11/13/2023 1:53 PM EDT 11/13/2023 1:53 PM EDT Francis Roberts MD POINT OF CARE TEST ORDERABLES [facility] [place] [address] * POCT Glucose (11/13/2023 11:41 AM EDT) Glucose, POC 199 65 - 199 mg/dL [facility] Comment: Supplemental ranges: <140 mg/dL before meals <180 mg/dL all other times of the day Blood 11/13/2023 11:4 1 AM EDT 11/13/2023 11:41 AM EDT Francis Roberts MD POINT OF CARE TEST ORDERABLES [facility] [place] [address] * POCT Glucose (11/13/2023 9:34 AM EDT) Glucose, POC 115 65 - 199 mg/dL [facility] Comment: Supplemental ranges: <140 mg/dL before meals <180 mg/dL all other times of the day Blood 11/13/2023 9:34 AM EDT 11/13/2023 9:34 AM EDT Francis Roberts MD POINT OF CARE TEST ORDERABLES Performing Organization Address City/[facility]/ZIP Co de Phone Number [facility] [place] [address] * POCT Glucose (11/13/2023 7:56 AM EDT) Glucose, POC 101 65 - 199 mg/dL [facility] Comment: Supplemental ranges: <140 mg/dL before meals <180 mg/dL all other times of the day Blood 11/13/2023 7:56 AM EDT 11/13/2023 7:56 AM EDT Joaquim Georges MD POINT OF CARE TEST O RDERABLES Performing Organization Address [facility] Co de Phone Number [facility] [place] [address] * POCT Glucose (11/13/2023 3:39 AM EDT) Glucose, POC 99 65 - 199 mg/dL [facility] Comment: Supplemental ranges: <140 mg/dL before meals <180 mg/dL all other times of the day Blood 11/13/2023 3:39 AM EDT 11/13/2023 3:39 AM EDT Joaquim Georges MD POINT OF CARE TEST O RDERABLES Performing Organization Address City/[facility]/ZIP Co de Phone Number [facility] [place] [address] * POCT Glucose (11/13/2023 12:23 AM EDT) Glucose, POC 94 65 - 199 mg/dL [facility] Comment: Supplemental ranges: <140 mg/dL before meals <180 mg/dL all other times of the day Blood 11/13/2023 12:2 3 AM EDT 11/13/2023 12:23 AM EDT Francis Roberts MD POINT OF CARE TEST ORDERABLES [facility] [place] [address] * (ABNORMAL) Differential, Automated (11/13/2023 12:08 AM EDT) Neutrophil % 59.6 % [facility] Neutrophil Absolute 5.76 1.70 - 6.10 x10(3)/ L [facility] Lymph % 24.9 % [facility] Lymphocytes Abs 2.4 0.9 - 3.2 x10(3)/ L [facility] Monocyte % 11.4 % [facility] Monocyte Abs 1.1(H) 0.3 - 0.9 x10(3)/ L [facility] Eos % 2.5 % [facility] Eosinophils Abs 0.2 0.0 - 0.4 x10(3)/[facility] Basophil % 0.8 % [facility] Baso Absolute 0.1 0.0 - 0.1 x10(3)/ L [facility] Immature Gran % 0.80 % [facility] Comment: Immature granulocytes(IG's)percentage and absolute count will include metamyelocytes, myelocytes, and promyelocytes. Blood smears from CBCs yielding IG's will be scanned manually for concordance. If this scan disagrees with the automated IG or if promyelocytes are noted, a manual differential will be performed. Immature Gran Absolute 0.08(H) 0.00 - 0.04 x10(3)/mc L [facility] Blood 11/13/2023 12:0 8 AM EDT 11/13/2023 12:30 AM EDT Narrative Resulting Agency Comment Spec In Lab Emily Mckenna MD HEMATOLOGY ORDERABLE S [facility] [place] [address] * (ABNORMAL) Hemogram (11/13/2023 12:08 AM EDT) White Blood Cell 9.7(H) 4.0 - 9.5 x10(3)/mc L [facility] Red Blood Cell 3.98(L) 4.00 - 5.21 x10(6)/mc L [facility] Hemoglobin 9.3(L) 11.7 - 15.5 g/dL [facility] Hematocrit 31.6(L) 35.7 - 45.8 % [facility] Mean Cell Volume 79.4(L) 82.6 - 94.4 fL [facility] Mean Cell Hemoglobin 23.4(L) 27.1 - 32.0 pg [facility] Mean Cell Hemoglobin Concentration 29.4(L) 31.7 - 35.0 g/dL [facility] Platelet 448(H) 145 - 357 x10(3)/mc L [facility] RDW Standard Deviation 54.3(H) 37.0 - 46.0 fL [facility] RDW coefficient of variation 18.8(H) 11.5 - 14.1 % [facility] Mean Platelet Volume 10.1 7.6 - 12.9 fL [facility] NRBC% auto 0.0 % [facility] NRBC Absolute 0.000 0.000 - 0.000 x10(3)/mc L [facility] Blood 11/13/2023 12:0 8 AM EDT 11/13/2023 12:30 AM EDT Narrative Resulting Agency Comment Spec In Lab Emily Mckenna MD HEMATOLOGY ORDERABLE S [facility] [place] [address] * Magnesium (11/13/2023 12:08 AM EDT) Magnesium 0.70 0.69 - 1.07 mmol/L [facility] Blood 11/13/2023 12:0 8 AM EDT 11/13/2023 12:31 AM EDT Narrative Resulting Agency Comment Spec In Lab Francis Roberts MD CHEMISTRY ORDERABLE S Performing Organization Address City/[facility]/ZIP Co de Phone Number [facility] [place] [address] * (ABNORMAL) Basic Metabolic Panel (non-fasting) (11/13/2023 12:08 AM EDT) Glucose 97 65 - 199 mg/dL [facility] Comment:Diabetes: >=200 mg/d L plus symptoms Blood Urea Nitrogen 34(H) 8 - 18 mg/dL [facility] Creatinine 1.17 0.70 - 1.20 mg/dL [facility] Sodium 136 135 - 145 mmol/L [facility] Potassium 5.0 3.5 - 5.0 mmol/L [facility] Comment: Please note: ??Patients with WBC >100,000 may have falsely elevated Potassium levels. ??For accurate Potassium quantification in these patients send serum separator tube (gold top) for subsequent determinations. ??Contact the Clinical Chemistry Laboratory if there are any questions. Chloride 103 98 - 107 mmol/L [facility] Carbon Dioxide 23 22 - 31 mmol/L [facility] Anion Gap 10 5 - 15 mmol/L [facility] Calcium 9.4 8.5 - 10.5 mg/dL [facility] Est Glomerular Filtration Rate 49(L) >=60 mL/min/1. 73 m?? [facility] Comment: This patient's estimated GFR was [...] and symptoms in addition to eGFR. Blood 11/13/2023 12:0 8 AM EDT 11/13/2023 12:30 AM EDT Narrative Resulting Agency Comment Spec In Lab Francis Roberts MD CHEMISTRY ORDERABLE S Performing Organization Address [facility] Co de Phone Number [facility] [place] [address] * POCT Glucose (11/12/2023 8:21 PM EDT) Glucose, POC 88 65 - 199 mg/dL [facility] Comment: Supplemental ranges: <140 mg/dL before meals <180 mg/dL all other times of the day Blood 11/12/2023 8:21 PM EDT 11/12/2023 8:21 PM EDT Francis Roberts MD POINT OF CARE TEST ORDERABLES Performing Organization Address [facility] Co de Phone Number [facility] [place] [address] * (ABNORMAL) POCT Glucose (11/12/2023 5:58 PM EDT) Glucose, POC 215(H) 65 - 199 mg/dL [facility] Comment: Supplemental ranges: <140 mg/dL before meals <180 mg/dL all other times of the day Blood 11/12/2023 5:58 PM EDT 11/12/2023 5:58 PM EDT Francis Roberts MD POINT OF CARE TEST ORDERABLES Performing Organization Address City/[facility]/ZIP Co de Phone Number [facility] [address] * (ABNORMAL) POCT Glucose (11/12/2023 3:48 PM EDT) Glucose, POC 338(H) 65 - 199 mg/dL [facility] Comment: Supplemental ranges: <140 mg/dL before meals <180 mg/dL all other times of the day Blood 11/12/2023 3:48 PM EDT 11/12/2023 3:48 PM EDT Francis Roberts MD POINT OF CARE TEST ORDERABLES Performing Organization Address City/[facility]/ZIP Co de Phone Number [facility] [place] [address] * (ABNORMAL) POCT Glucose (11/12/2023 1:41 PM EDT) Glucose, POC 284(H) 65 - 199 mg/dL [facility] Comment: Supplemental ranges: <140 mg/dL before meals <180 mg/dL all other times of the day Blood 11/12/2023 1:41 PM EDT 11/12/2023 1:41 PM EDT Francis Roberts MD POINT OF CARE TEST ORDERABLES Performing Organization Address City/[facility]/ZIP Co de Phone Number [facility] [place] [address] * (ABNORMAL) POCT Glucose (11/12/2023 12:26 PM EDT) Glucose, POC 245(H) 65 - 199 mg/dL [facility] Comment: Supplemental ranges: <140 mg/dL before meals <180 mg/dL all other times of the day Blood 11/12/2023 12:2 6 PM EDT 11/12/2023 12:26 PM EDT Francis Roberts MD POINT OF CARE TEST ORDERABLES [facility] [place] [address] * POCT Glucose (11/12/2023 8:17 AM EDT) Glucose, POC 147 65 - 199 mg/dL [facility] Comment: Supplemental ranges: <140 mg/dL before meals <180 mg/dL all other times of the day Blood 11/12/2023 8:17 AM EDT 11/12/2023 8:17 AM EDT Francis Roberts MD POINT OF CARE TEST ORDERABLES [facility] [place] [address] * POCT Glucose (11/12/2023 4:07 AM EDT) Glucose, POC 108 65 - 199 mg/dL [facility] Comment: Supplemental ranges: <140 mg/dL before meals <180 mg/dL all other times of the day Blood 11/12/2023 4:07 AM EDT 11/12/2023 4:07 AM EDT Francis Roberts MD POINT OF CARE TEST ORDERABLES [facility] [place] [address] * (ABNORMAL) Differential, Automated (11/12/2023 12:54 AM EDT) Neutrophil % 63.2 % [facility] Neutrophil Absolute 6.81(H) 1.70 - 6.10 x10(3)/mc L [facility] Lymph % 21.6 % [facility] Lymphocytes Abs 2.3 0.9 - 3.2 x10(3)/mc L [facility] Monocyte % 12.1 % [facility] Monocyte Abs 1.3(H) 0.3 - 0.9 x10(3)/mc L [facility] Eos % 1.9 % [facility] Eosinophils Abs 0.2 0.0 - 0.4 x10(3)/[facility] Basophil % 0.6 % [facility] Baso Absolute 0.1 0.0 - 0.1 x10(3)/ L [facility] Immature Gran % 0.60 % [facility] Comment: Immature granulocytes(IG's)percentage and absolute count will include metamyelocytes, myelocytes, and promyelocytes. Blood smears from CBCs yielding IG's will be scanned manually for concordance. If this scan disagrees with the automated IG or if promyelocytes are noted, a manual differential will be performed. Immature Gran Absolute 0.07(H) 0.00 - 0.04 x10(3)/[facility] Blood 11/12/2023 12:5 4 AM EDT 11/12/2023 1:01 AM EDT Narrative Resulting Agency Comment Spec In Lab Emily Mckenna MD HEMATOLOGY ORDERABLE S [facility] [place] [address] * (ABNORMAL) Hemogram (11/12/2023 12:54 AM EDT) White Blood Cell 10.8(H) 4.0 - 9.5 x10(3)/ L [facility] Red Blood Cell 4.00 4.00 - 5.21 x10(6)/ L [facility] Hemoglobin 9.3(L) 11.7 - 15.5 g/dL [facility] Hematocrit 31.2(L) 35.7 - 45.8 % [facility] Mean Cell Volume 78.0(L) 82.6 - 94.4 fL [facility] Mean Cell Hemoglobin 23.3(L) 27.1 - 32.0 pg [facility] Mean Cell Hemoglobin Concentration 29.8(L) 31.7 - 35.0 g/dL [facility] Platelet 441(H) 145 - 357 x10(3)/mc L [facility] RDW Standard Deviation 52.8(H) 37.0 - 46.0 fL [facility] RDW coefficient of variation 18.8(H) 11.5 - 14.1 % [facility] Mean Platelet Volume 10.5 7.6 - 12.9 fL [facility] NRBC% auto 0.0 % [facility] NRBC Absolute 0.000 0.000 - 0.000 x10(3)/mc L [facility] Blood 11/12/2023 12:5 4 AM EDT 11/12/2023 1:01 AM EDT Narrative Resulting Agency Comment Spec In Lab Emily Mckenna MD HEMATOLOGY ORDERABLE S Performing Organization Address City/[facility]/ZIP Co de Phone Number [facility] [place] [address] * Magnesium (11/12/2023 12:54 AM EDT) Magnesium 0.72 0.69 - 1.07 mmol/L [facility] Blood 11/12/2023 12:5 4 AM EDT 11/12/2023 1:01 AM EDT Narrative Resulting Agency Comment Spec In Lab Francis Roberts MD CHEMISTRY ORDERABLE S [facility] [place] [address] * (ABNORMAL) Basic Metabolic Panel (non-fasting) (11/12/2023 12:54 AM EDT) Glucose 94 65 - 199 mg/dL [facility] Comment:Diabetes: >=200 mg/d L plus symptoms Blood Urea Nitrogen 27(H) 8 - 18 mg/dL [facility] Creatinine 0.85 0.70 - 1.20 mg/dL [facility] Sodium 136 135 - 145 mmol/L [facility] Potassium 5.0 3.5 - 5.0 mmol/L [facility] Comment: Please note: ??Patients with WBC >100,000 may have falsely elevated Potassium levels. ??For accurate Potassium quantification in these patients send serum separator tube (gold top) for subsequent determinations. ??Contact the Clinical Chemistry Laboratory if there are any questions. Chloride 104 98 - 107 mmol/L [facility] Carbon Dioxide 24 22 - 31 mmol/L [facility] Anion Gap 8 5 - 15 mmol/L [facility] Calcium 9.8 8.5 - 10.5 mg/dL [facility] Est Glomerular Filtration Rate 71 >=60 mL/min/1. 73 m?? [facility] Comment: This patient's estimated GFR was [...] and symptoms in addition to eGFR. Blood 11/12/2023 12:5 4 AM EDT 11/12/2023 1:01 AM EDT Narrative Resulting Agency Comment Spec In Lab Francis Roberts MD CHEMISTRY ORDERABLE S [facility] [place] [address] * POCT Glucose (11/12/2023 12:52 AM EDT) Glucose, POC 95 65 - 199 mg/dL [facility] Comment: Supplemental ranges: <140 mg/dL before meals <180 mg/dL all other times of the day Blood 11/12/2023 12:5 2 AM EDT 11/12/2023 12:52 AM EDT Francis Roberts MD POINT OF CARE TEST ORDERABLES Performing Organization Address City/[facility]/ZIP Co de Phone Number [facility] [place] [address] * POCT Glucose (11/11/2023 9:41 PM EDT) Glucose, POC 162 65 - 199 mg/dL [facility] Comment: Supplemental ranges: <140 mg/dL before meals <180 mg/dL all other times of the day Blood 11/11/2023 9:41 PM EDT 11/11/2023 9:41 PM EDT Francis Roberts MD POINT OF CARE TEST ORDERABLES Performing Organization Address [facility] Co de Phone Number [facility] [place] [address] * (ABNORMAL) POCT Glucose (11/11/2023 8:11 PM EDT) Glucose, POC 263(H) 65 - 199 mg/dL [facility] Comment: Supplemental ranges: <140 mg/dL before meals <180 mg/dL all other times of the day Blood 11/11/2023 8:11 PM EDT 11/11/2023 8:11 PM EDT Francis Roberts MD POINT OF CARE TEST ORDERABLES Performing Organization Address City/[facility]/ZIP Co de Phone Number [facility] [place] [address] * (ABNORMAL) POCT Glucose (11/11/2023 6:28 PM EDT) Glucose, POC 245(H) 65 - 199 mg/dL [facility] Comment: Supplemental ranges: <140 mg/dL before meals <180 mg/dL all other times of the day Blood 11/11/2023 6:28 PM EDT 11/11/2023 6:28 PM EDT Francis Roberts MD POINT OF CARE TEST ORDERABLES Performing Organization Address City/[facility] Co de Phone Number [facility] [place] [address] * (ABNORMAL) POCT Glucose (11/11/2023 4:18 PM EDT) Glucose, POC 295(H) 65 - 199 mg/dL [facility] Comment: Supplemental ranges: <140 mg/dL before meals <180 mg/dL all other times of the day Blood 11/11/2023 4:18 PM EDT 11/11/2023 4:18 PM EDT Francis Roberts MD POINT OF CARE TEST ORDERABLES Performing Organization Address [facility] Co de Phone Number [facility] [place] [address] * (ABNORMAL) POCT Glucose (11/11/2023 2:20 PM EDT) Glucose, POC 306(H) 65 - 199 mg/dL [facility] Comment: Supplemental ranges: <140 mg/dL before meals <180 mg/dL all other times of the day Blood 11/11/2023 2:20 PM EDT 11/11/2023 2:20 PM EDT Francis Roberts MD POINT OF CARE TEST ORDERABLES Performing Organization Address City/[facility]/ZIP Co de Phone Number [facility] [place] [address] * CT Abdomen & Pelvis wo Contrast (11/11/2023 12:20 PM EDT) WORKSTATION ID [id number] RAD Anatomical Region Laterality Modality Abdomen, Pelvis Computed Tomogra phy Impressions 11/11/2023 1:06 PM EDT Appropriate position of the suprapubic catheter, however, persistent moderate bladder distention. Possible catheter obstruction/clog; correlate with ability to flush catheter. The overall appearance is similar to 2021 when the catheter was in appropriate position and the bladder was distended. Thank you for letting us participate in the care of this patient. ??If you are a health care provider and have any questions regarding this report, please contact the number below. ??For patients who have questions please contact the health adult day care worker that requested your imaging first. ? Electronically signed by: SUNSHINE ALCOCER MD, [facility] ([phone]), at 11/11/2023 1:06 PM Narrative 11/11/2023 1:06 [...] related to facet arthropathy. Procedure Note Sunshine Alcocer MD - 11/11/2023 EXAMINATION: CT ABDOMEN AND [...] overall appearance is similar to 202 when thecatheter was in appropriate position and the bladder was distended. Thank you for letting us participate in the care of this patient. If youare a health care provider and have any questions regarding this report,please contact the number below. For patients who have questions please contactthe health adult day care worker that requested your imaging first. Francis Roberts MD IMG CT ORDERABLES * (ABNORMAL) POCT Glucose (11/11/2023 11:51 AM EDT) Glucose, POC 268(H) 65 - 199 mg/dL [facility] Comment: Supplemental ranges: <140 mg/dL before meals <180 mg/dL all other times of the day Blood 11/11/2023 11:5 1 AM EDT 11/11/2023 11:51 AM EDT Francis Roberts MD POINT OF CARE TEST ORDERABLES Performing Organization Address [facility]/ZIP Co de Phone Number [facility] [place] [address] * POCT Glucose (11/11/2023 8:17 AM EDT) Glucose, POC 133 65 - 199 mg/dL [facility] Comment: Supplemental ranges: <140 mg/dL before meals <180 mg/dL all other times of the day Blood 11/11/2023 8:17 AM EDT 11/11/2023 8:17 AM EDT Francis Roberts MD POINT OF CARE TEST ORDERABLES [facility] [place] [address] * Shiga Toxin Detection (11/11/2023 5:41 AM EDT) Pathologist [facility] Shiga Toxin Assay Test not performed due to no enteric growth. [facility] Stool 11/11/2023 5:41 AM EDT 11/11/2023 8:06 AM EDT Narrative Resulting Agency Comment Spec In Lab Tad Greenwood MD MICROBIOLOGY - GENE RAL ORDERABLES Performing Organization Address [facility]/ZIP Co de Phone Number [facility] [place] [address] * Campylobacter Antigen (11/11/2023 5:41 AM EDT) Pathologist [place] Emergency Department Campylobacter Ag Immunoassay Negative for Campylobacter Antigen [facility] Stool 11/11/2023 5:41 AM EDT 11/11/2023 8:06 AM EDT Narrative Resulting Agency Comment Spec In Lab Tad Greenwood MD MICROBIOLOGY - GENE RAL ORDERABLES Performing Organization Address [facility]/ZIP Co de Phone Number [facility] [place] [address] * Stool culture (11/11/2023 5:41 AM EDT) Pathologist [facility] Stool Culture No enteric pathogens isolated Reduced normal enteric kb isolated [facility] Stool 11/11/2023 5:41 AM EDT 11/11/2023 8:06 AM EDT Narrative Resulting Agency Comment Spec In Lab Tad Greenwood MD MICROBIOLOGY - GENE RAL ORDERABLES Performing Organization Address [facility] Co de Phone Number [facility] [place] [place] [address] * (ABNORMAL) Differential, Automated (11/11/2023 5:13 AM EDT) Neutrophil % 68.0 % [facility] Neutrophil Absolute 7.51(H) 1.70 - 6.10 x10(3)/ L [facility] Lymph % 15.2 % [facility] Lymphocytes Abs 1.7 0.9 - 3.2 x10(3)/[facility] Monocyte % 14.1 % [facility] Monocyte Abs 1.6(H) 0.3 - 0.9 x10(3)/[facility] Eos % 1.7 % [facility] Eosinophils Abs 0.2 0.0 - 0.4 x10(3)/[facility] Basophil % 0.5 % [facility] Baso Absolute 0.0 0.0 - 0.1 x10(3)/[facility] Immature Gran % 0.50 % [facility] Comment: Immature granulocytes(IG's)percentage and absolute count will include metamyelocytes, myelocytes, and promyelocytes. Blood smears from CBCs yielding IG's will be scanned manually for concordance. If this scan disagrees with the automated IG or if promyelocytes are noted, a manual differential will be performed. Immature Gran Absolute 0.05(H) 0.00 - 0.04 x10(3)/[facility] Blood 11/11/2023 5:13 AM EDT 11/11/2023 5:25 AM EDT Narrative Resulting Agency Comment Spec In Lab Tad Greenwood MD HEMATOLOGY ORDERABL ES [facility] [place] [address] * (ABNORMAL) Hemogram (11/11/2023 5:13 AM EDT) White Blood Cell 11.0(H) 4.0 - 9.5 x10(3)/[facility] Red Blood Cell 4.26 4.00 - 5.21 x10(6)/[facility] Hemoglobin 10.0(L) 11.7 - 15.5 g/dL [facility] Hematocrit 33.4(L) 35.7 - 45.8 % [facility] Mean Cell Volume 78.4(L) 82.6 - 94.4 fL [facility] Mean Cell Hemoglobin 23.5(L) 27.1 - 32.0 pg [facility] Mean Cell Hemoglobin Concentration 29.9(L) 31.7 - 35.0 g/dL [facility] Platelet 431(H) 145 - 357 x10(3)/mc L [facility] RDW Standard Deviation 53.0(H) 37.0 - 46.0 fL [facility] RDW coefficient of variation 18.8(H) 11.5 - 14.1 % [facility] Mean Platelet Volume 10.4 7.6 - 12.9 fL [facility] NRBC% auto 0.0 % [facility] NRBC Absolute 0.000 0.000 - 0.000 x10(3)/mc L [facility] Blood 11/11/2023 5:13 AM EDT 11/11/2023 5:25 AM EDT Narrative Resulting Agency Comment Spec In Lab Tad Greenwood MD HEMATOLOGY ORDERABL ES [facility] [place] [place] [address] * (ABNORMAL) POCT Glucose (11/11/2023 3:00 AM EDT) Glucose, POC 258(H) 65 - 199 mg/dL [facility] Comment: Supplemental ranges: <140 mg/dL before meals <180 mg/dL all other times of the day Blood 11/11/2023 3:00 AM EDT 11/11/2023 3:00 AM EDT Francis Roberts MD POINT OF CARE TEST ORDERABLES [facility] [place] [address] * Magnesium (11/11/2023 12:20 AM EDT) Magnesium 0.71 0.69 - 1.07 mmol/L [facility] Blood 11/11/2023 12:2 0 AM EDT 11/11/2023 12:22 AM EDT Narrative Resulting Agency Comment Spec In Lab Francis Roberts MD CHEMISTRY ORDERABLE S Performing Organization Address City/[facility]/ZIP Co de Phone Number [facility] [place] [address] * (ABNORMAL) Basic Metabolic Panel (non-fasting) (11/11/2023 12:20 AM EDT) Glucose 200(H) 65 - 199 mg/dL [facility] Comment:Diabetes: >=200 mg/d L plus symptoms Blood Urea Nitrogen 22(H) 8 - 18 mg/dL [facility] Creatinine 1.18 0.70 - 1.20 mg/dL [facility] Sodium 133(L) 135 - 145 mmol/L [facility] Potassium 4.9 3.5 - 5.0 mmol/L [facility] Comment: Please note: ??Patients with WBC >100,000 may have falsely elevated Potassium levels. ??For accurate Potassium quantification in these patients send serum separator tube (gold top) for subsequent determinations. ??Contact the Clinical Chemistry Laboratory if there are any questions. Chloride 99 98 - 107 mmol/L [facility] Carbon Dioxide 24 22 - 31 mmol/L [facility] Anion Gap 10 5 - 15 mmol/L [facility] Calcium 9.9 8.5 - 10.5 mg/dL [facility] Est Glomerular Filtration Rate 48(L) >=60 mL/min/1. 73 m?? [facility] Comment: This patient's estimated GFR was calculated using the 2021 CKD-EPI equation. The estimated GFR can vary [...] and symptoms in addition to eGFR. Blood 11/11/2023 12:2 0 AM EDT 11/11/2023 12:22 AM EDT Narrative Resulting Agency Comment Spec In Lab Francis Roberts MD CHEMISTRY ORDERABLE S Performing Organization Address [facility] Co de Phone Number [facility] [place] [place] [address] * POCT Glucose (11/11/2023 12:13 AM EDT) Glucose, POC 195 65 - 199 mg/dL [facility] Comment: Supplemental ranges: <140 mg/dL before meals <180 mg/dL all other times of the day Blood 11/11/2023 12:1 3 AM EDT 11/11/2023 12:13 AM EDT Francis Roberts MD POINT OF CARE TEST ORDERABLES Performing Organization Address [facility] Co de Phone Number [facility] [place] [address] * (ABNORMAL) POCT Glucose (11/10/2023 7:23 PM EDT) Glucose, POC 278(H) 65 - 199 mg/dL [facility] Comment: Supplemental ranges: <140 mg/dL before meals <180 mg/dL all other times of the day Blood 11/10/2023 7:23 PM EDT 11/10/2023 7:23 PM EDT Francis Roberts MD POINT OF CARE TEST ORDERABLES Performing Organization Address City/[facility]/ZIP Co de Phone Number [facility] [place] [address] * (ABNORMAL) POCT Glucose (11/10/2023 3:01 PM EDT) Glucose, POC 264(H) 65 - 199 mg/dL [facility] Comment: Supplemental ranges: <140 mg/dL before meals <180 mg/dL all other times of the day Blood 11/10/2023 3:01 PM EDT 11/10/2023 3:01 PM EDT Francis Roberts MD POINT OF CARE TEST ORDERABLES Performing Organization Address [facility] Co de Phone Number [facility] [place] [address] * (ABNORMAL) POCT Glucose (11/10/2023 11:06 AM EDT) Glucose, POC 256(H) 65 - 199 mg/dL [facility] Comment: Supplemental ranges: <140 mg/dL before meals <180 mg/dL all other times of the day Blood 11/10/2023 11:0 6 AM EDT 11/10/2023 11:06 AM EDT Francis Roberts MD POINT OF CARE TEST ORDERABLES Performing Organization Address [facility] Co de Phone Number [facility] [place] [address] * Osmolality, urine, random (11/10/2023 9:39 AM EDT) Osmolality, Urine 454 50 - 1,200 mOsm/kg [facility] Urine Urine / Unknown 11/10/2023 9 :39 AM EDT 11/10/2023 10:09 AM EDT Narrative Resulting Agency Comment Spec In Lab Francis Roberts MD URINE ORDERABLES Performing Organization Address City/[facility]/ZIP Co de Phone Number [facility] [place] [address] * Sodium, urine, random (11/10/2023 9:39 AM EDT) Sodium, Urine 108 mmol/L [facility] Urine 11/10/2023 9:39 AM EDT 11/10/2023 9:47 AM EDT Narrative Resulting Agency Comment Spec In Lab Francis Roberts MD URINE ORDERABLES [facility] [place] [address] * POCT Glucose (11/10/2023 7:33 AM EDT) Glucose, POC 126 65 - 199 mg/dL [facility] Comment: Supplemental ranges: <140 mg/dL before meals <180 mg/dL all other times of the day Blood 11/10/2023 7:33 AM EDT 11/10/2023 7:33 AM EDT Francis Roberts MD POINT OF CARE TEST ORDERABLES Performing Organization Address City/[facility]/ZIP Co de Phone Number [facility] [place] [address] * (ABNORMAL) POCT Glucose (11/10/2023 4:08 AM EDT) Glucose, POC 201(H) 65 - 199 mg/dL [facility] Comment: Supplemental ranges: <140 mg/dL before meals <180 mg/dL all other times of the day Blood 11/10/2023 4:08 AM EDT 11/10/2023 4:08 AM EDT Francis Roberts MD POINT OF CARE TEST ORDERABLES [facility] [place] [address] * POCT Glucose (11/10/2023 12:18 AM EDT) Glucose, POC 147 65 - 199 mg/dL [facility] Comment: Supplemental ranges: <140 mg/dL before meals <180 mg/dL all other times of the day Blood 11/10/2023 12:1 8 AM EDT 11/10/2023 12:18 AM EDT Francis Roberts MD POINT OF CARE TEST ORDERABLES Performing Organization Address [facility] Co de Phone Number [facility] [place] [address] * Osmolality (11/10/2023 12:00 AM EDT) [facility] Osmolality 287 275 - 295 mOsm/kg [facility] Blood Venous Draw / Unknown 11/10/2023 11/10/2023 12:37 AM EDT Narrative Resulting Agency Comment Spec In Lab Francis Roberts MD CHEMISTRY ORDERABLE S Performing Organization Address [facility] de Phone Number [facility] [place] [address] * Scan, Peripheral Blood (11/10/2023 12:00 AM EDT) [facility] Plat estimate Increased [facility] RBC Morphology Abnormal [facility] Microcyte 1-5 /HPF [facility] Hypochromia Slight [facility] Polychromasia Present >5/HPF [facility] Ovalocytes 1-5 /HPF [facility] Tear Cell 1-5 /HPF [facility] Taberg Cells 1-5 /HPF [facility] Acanthocytes 1-5 /HPF [facility] Stippled RBC Present >1/HPF [facility] Blood 11/10/2023 11/10/2023 12: 30 AM EDT Narrative Resulting Agency Comment Spec In Lab Francis Roberts MD HEMATOLOGY ORDERABL ES Performing Organization Address City/[facility] Co de Phone Number [facility] [place] [address] * (ABNORMAL) Differential, Automated (11/10/2023 12:00 AM EDT) [facility] Neutrophil % 57.0 % [facility] Neutrophil Absolute 5.31 1.70 - 6.10 x10(3)/mc L [facility] Lymph % 22.4 % [facility] Lymphocytes Abs 2.1 0.9 - 3.2 x10(3)/ L [facility] Monocyte % 17.2 % [facility] Monocyte Abs 1.6(H) 0.3 - 0.9 x10(3)/ L [facility] Eos % 2.2 % [facility] Eosinophils Abs 0.2 0.0 - 0.4 x10(3)/[facility] Basophil % 0.4 % [facility] Baso Absolute 0.0 0.0 - 0.1 x10(3)/ L [facility] Immature Gran % 0.80 % [facility] Comment: Immature granulocytes(IG's)percentage and absolute count will include metamyelocytes, myelocytes, and promyelocytes. Blood smears from CBCs yielding IG's will be scanned manually for concordance. If this scan disagrees with the automated IG or if promyelocytes are noted, a manual differential will be performed. Immature Gran Absolute 0.07(H) 0.00 - 0.04 x10(3)/mc L [facility] Blood 11/10/2023 11/10/2023 12: 30 AM EDT Narrative Resulting Agency Comment Spec In Lab Francis Roberts MD HEMATOLOGY ORDERABL ES [facility] [place] [address] * (ABNORMAL) Hemogram (11/10/2023 12:00 AM EDT) White Blood Cell 9.3 4.0 - 9.5 x10(3)/[facility] Red Blood Cell 4.07 4.00 - 5.21 x10(6)/[facility] Hemoglobin 9.4(L) 11.7 - 15.5 g/dL [facility] Hematocrit 31.1(L) 35.7 - 45.8 % [facility] Mean Cell Volume 76.4(L) 82.6 - 94.4 fL [facility] Mean Cell Hemoglobin 23.1(L) 27.1 - 32.0 pg [facility] Mean Cell Hemoglobin Concentration 30.2(L) 31.7 - 35.0 g/dL [facility] Platelet 401(H) 145 - 357 x10(3)/[facility] RDW Standard Deviation 51.8(H) 37.0 - 46.0 [facility] RDW coefficient of variation 18.9(H) 11.5 - 14.1 % [facility] Mean Platelet Volume 10.3 7.6 - 12.9 fL [facility] NRBC% auto 0.0 % [facility] NRBC Absolute 0.000 0.000 - 0.000 x10(3)/[facility] Blood 11/10/2023 11/10/2023 12: 30 AM EDT Narrative Resulting Agency Comment Spec In Lab Francis Roberts MD HEMATOLOGY ORDERABL ES [facility] [place] [address] * (ABNORMAL) Magnesium (11/10/2023 12:00 AM EDT) Pathologist [facility] Magnesium 0.63(L) 0.69 - 1.07 mmol/L [facility] Blood 11/10/2023 11/10/2023 12: 30 AM EDT Narrative Resulting Agency Comment Spec In Lab Francis Roberts MD CHEMISTRY ORDERABLE S [facility] [place] [address] * (ABNORMAL) Basic Metabolic Panel (non-fasting) (11/10/2023 12:00 AM EDT) Glucose 155 65 - 199 mg/dL [facility] Comment:Diabetes: >=200 mg/d L plus symptoms Blood Urea Nitrogen 21(H) 8 - 18 mg/dL [facility] Creatinine 0.95 0.70 - 1.20 mg/dL [facility] Sodium 134(L) 135 - 145 mmol/L [facility] Potassium 4.6 3.5 - 5.0 mmol/L [facility] Comment: Please note: ??Patients with WBC >100,000 may have falsely elevated Potassium levels. ??For accurate Potassium quantification in these patients send serum separator tube (gold top) for subsequent determinations. ??Contact the Clinical Chemistry Laboratory if there are any questions. Chloride 100 98 - 107 mmol/L [facility] Carbon Dioxide 24 22 - 31 mmol/L [facility] Anion Gap 10 5 - 15 mmol/L [facility] Calcium 9.4 8.5 - 10.5 mg/dL [facility] Est Glomerular Filtration Rate 62 >=60 mL/min/1. 73 m?? [facility] Comment: This patient's estimated GFR was [...] and symptoms in addition to eGFR. Blood 11/10/2023 11/10/2023 12: 30 AM EDT Narrative Resulting Agency Comment Spec In Lab Francis Roberts MD CHEMISTRY ORDERABLE S [facility] [place] [address] * Ferritin (11/10/2023 12:00 AM EDT) Ferritin 32 11 - 328 ng/mL [facility] Comment: Please note that as of 05/27/2023, the reference intervals for Ferritin have been updated. Blood 11/10/2023 11/10/2023 12: 30 AM EDT Narrative Resulting Agency Comment Spec In Lab Francis Roberts MD CHEMISTRY ORDERABLE S Performing Organization Address City/[facility]/ZIP Co de Phone Number [facility] [place] [address] * Folate, serum (11/10/2023 12:00 AM EDT) Folate 10.2 4.8 - 24.2 ng/mL [facility] Blood 11/10/2023 11/10/2023 12: 30 AM EDT Narrative Resulting Agency Comment Spec In Lab Francis Roberts MD CHEMISTRY ORDERABLE S [facility] [place] [address] * (ABNORMAL) Vitamin B12 (11/10/2023 12:00 AM EDT) Vitamin B12 200(L) 232 - 1,245 pg/mL [facility] Blood 11/10/2023 11/10/2023 12: 30 AM EDT Narrative Resulting Agency Comment Spec In Lab Francis Roberts MD CHEMISTRY ORDERABLE S [facility] [place] [place] [address] * (ABNORMAL) POCT Glucose (11/09/2023 7:36 PM EDT) Glucose, POC 264(H) 65 - 199 mg/dL [facility] Comment: Supplemental ranges: <140 mg/dL before meals <180 mg/dL all other times of the day Blood 11/09/2023 7:36 PM EDT 11/09/2023 7:36 PM EDT Francis Roberts MD POINT OF CARE TEST ORDERABLES Performing Organization Address [facility] Co de Phone Number [facility] [place] [address] * (ABNORMAL) POCT Glucose (11/09/2023 4:53 PM EDT) Glucose, POC 213(H) 65 - 199 mg/dL [facility] Comment: Supplemental ranges: <140 mg/dL before meals <180 mg/dL all other times of the day Blood 11/09/2023 4:53 PM EDT 11/09/2023 4:53 PM EDT Francis Roberts MD POINT OF CARE TEST ORDERABLES Performing Organization Address [facility] Co de Phone Number [facility] [place] [address] * PATRICK, legs, multiple levels (11/09/2023 4:43 PM EDT) VB Text Report Department: Vascular Surgery Lab Patient: [id number] (HOPE YEE) CPT: 27771 Referring Physician: JOAQUIM GEORGES ?? Phone: Indications: Chronic LE wound [...] of Report [facility] 11/09/2023 4:43 PM EDT Joaquim Georges MD VASCULAR ORDERABLES Performing Organization Address [facility]/ZIP Co de Phone Number [email or web address] * POCT Glucose (11/09/2023 11:53 AM EDT) Glucose, POC 193 65 - 199 mg/dL [facility] Comment: Supplemental ranges: <140 mg/dL before meals <180 mg/dL all other times of the day Blood 11/09/2023 11:5 3 AM EDT 11/09/2023 11:53 AM EDT Francis Roberts MD POINT OF CARE TEST ORDERABLES Performing Organization Address [facility] Co de Phone Number [facility] [place] [address] * POCT Glucose (11/09/2023 7:41 AM EDT) Glucose, POC 108 65 - 199 mg/dL [facility] Comment: Supplemental ranges: <140 mg/dL before meals <180 mg/dL all other times of the day Blood 11/09/2023 7:41 AM EDT 11/09/2023 7:41 AM EDT Francis Roberts MD POINT OF CARE TEST ORDERABLES [facility] [place] [address] * POCT Glucose (11/09/2023 4:07 AM EDT) Pathologist [facility] Glucose, POC 188 65 - 199 mg/dL [facility] Comment: Supplemental ranges: <140 mg/dL before meals <180 mg/dL all other times of the day Blood 11/09/2023 4:07 AM EDT 11/09/2023 4:07 AM EDT Francis Roberts MD POINT OF CARE TEST ORDERABLES Performing Organization Address City/[facility]/ZIP Co de Phone Number [facility] [place] [address] * (ABNORMAL) Differential, Automated (11/09/2023 12:00 AM EDT) [facility] Neutrophil % 65.6 % [facility] Neutrophil Absolute 6.35(H) 1.70 - 6.10 x10(3)/mc L [facility] Lymph % 17.3 % [facility] Lymphocytes Abs 1.7 0.9 - 3.2 x10(3)/mc L [facility] Monocyte % 15.1 % [facility] Monocyte Abs 1.5(H) 0.3 - 0.9 x10(3)/mc L [facility] Eos % 1.1 % [facility] Eosinophils Abs 0.1 0.0 - 0.4 x10(3)/mc L [facility] Basophil % 0.5 % [facility] Baso Absolute 0.0 0.0 - 0.1 x10(3)/ L [facility] Immature Gran % 0.40 % [facility] Comment: Immature granulocytes(IG's)percentage and absolute count will include metamyelocytes, myelocytes, and promyelocytes. Blood smears from CBCs yielding IG's will be scanned manually for concordance. If this scan disagrees with the automated IG or if promyelocytes are noted, a manual differential will be performed. Immature Gran Absolute 0.04 0.00 - 0.04 x10(3)/[facility] Blood 11/09/2023 11/09/2023 12: 19 AM EDT Narrative Resulting Agency Comment Spec In Lab Francis Roberts MD HEMATOLOGY ORDERABL ES [facility] [place] [address] * (ABNORMAL) Hemogram (11/09/2023 12:00 AM EDT) White Blood Cell 9.7(H) 4.0 - 9.5 x10(3)/[facility] Red Blood Cell 4.12 4.00 - 5.21 x10(6)/[facility] Hemoglobin 9.7(L) 11.7 - 15.5 g/dL [facility] Hematocrit 32.0(L) 35.7 - 45.8 % [facility] Mean Cell Volume 77.7(L) 82.6 - 94.4 fL [facility] Mean Cell Hemoglobin 23.5(L) 27.1 - 32.0 pg [facility] Mean Cell Hemoglobin Concentration 30.3(L) 31.7 - 35.0 g/dL [facility] Platelet 391(H) 145 - 357 x10(3)/[facility] RDW Standard Deviation 52.9(H) 37.0 - 46.0 fL [facility] RDW coefficient of variation 19.0(H) 11.5 - 14.1 % [facility] Mean Platelet Volume 10.2 7.6 - 12.9 fL [facility] NRBC% auto 0.0 % [facility] NRBC Absolute 0.000 0.000 - 0.000 x10(3)/mc L [facility] Blood 11/09/2023 11/09/2023 12: 19 AM EDT Narrative Resulting Agency Comment Spec In Lab Francis Roberts MD HEMATOLOGY ORDERABL ES Performing Organization Address [facility] Co de Phone Number [facility] [place] [address] * (ABNORMAL) Magnesium (11/09/2023 12:00 AM EDT) Magnesium 0.68(L) 0.69 - 1.07 mmol/L [facility] Blood 11/09/2023 11/09/2023 12: 19 AM EDT Narrative Resulting Agency Comment Spec In Lab Francis Roberts MD CHEMISTRY ORDERABLE S Performing Organization Address [facility] Co de Phone Number [facility] [place] [address] * (ABNORMAL) Basic Metabolic Panel (non-fasting) (11/09/2023 12:00 AM EDT) Glucose 202(H) 65 - 199 mg/dL [facility] Comment:Diabetes: >=200 mg/d L plus symptoms Blood Urea Nitrogen 17 8 - 18 mg/dL [facility] Creatinine 0.86 0.70 - 1.20 mg/dL [facility] Sodium 135 135 - 145 mmol/L [facility] Potassium 4.5 3.5 - 5.0 mmol/L [facility] Comment: Please note: ??Patients with WBC >100,000 may have falsely elevated Potassium levels. ??For accurate Potassium quantification in these patients send serum separator tube (gold top) for subsequent determinations. ??Contact the Clinical Chemistry Laboratory if there are any questions. Chloride 102 98 - 107 mmol/L [facility] Carbon Dioxide 24 22 - 31 mmol/L [facility] Anion Gap 9 5 - 15 mmol/L [facility] Calcium 8.8 8.5 - 10.5 mg/dL [facility] Est Glomerular Filtration Rate 70 >=60 mL/min/1. 73 m?? [facility] Comment: This patient's estimated GFR was [...] and symptoms in addition to eGFR. Blood 11/09/2023 11/09/2023 12: 19 AM EDT Narrative Resulting Agency Comment Spec In Lab Francis Roberts MD CHEMISTRY ORDERABLE S [facility] [place] [address] * (ABNORMAL) Hepatic Function Panel (11/09/2023 12:00 AM EDT) Protein, Total 6.2 6.1 - 8.0 g/dL [facility] Albumin 3.1(L) 3.2 - 5.2 g/dL [facility] Aspartate Aminotransferase 20 0 - 30 unit/L [facility] Alanine Aminotransferase 47(H) 0 - 30 unit/L [facility] Alkaline Phosphatase 76 35 - 105 unit/L [facility] Bilirubin, Total <0.2(L) 0.2 - 1.3 mg/dL [facility] Bilirubin, Direct <0.1 0.0 - 0.3 mg/dL [facility] Blood 11/09/2023 11/09/2023 12: 19 AM EDT Narrative Resulting Agency Comment Spec In Lab Francis Roberts MD CHEMISTRY ORDERABLE S Performing Organization Address City/[facility]/ZIP Co de Phone Number [facility] [place] [address] * (ABNORMAL) POCT Glucose (11/08/2023 10:06 PM EDT) Glucose, POC 412(H) 65 - 199 mg/dL [facility] Comment: Supplemental ranges: <140 mg/dL before meals <180 mg/dL all other times of the day Blood 11/08/2023 10:0 6 PM EDT 11/08/2023 10:06 PM EDT Francis Roberts MD POINT OF CARE TEST ORDERABLES Performing Organization Address [facility]/ZIP Co de Phone Number [facility] [place] [address] * (ABNORMAL) POCT Glucose (11/08/2023 4:06 PM EDT) Glucose, POC 236(H) 65 - 199 mg/dL [facility] Comment: Supplemental ranges: <140 mg/dL before meals <180 mg/dL all other times of the day Blood 11/08/2023 4:06 PM EDT 11/08/2023 4:06 PM EDT Francis Roberts MD POINT OF CARE TEST ORDERABLES Performing Organization Address [facility]/ZIP Co de Phone Number [facility] [place] [address] * (ABNORMAL) POCT Glucose (11/08/2023 12:12 PM EDT) Glucose, POC 221(H) 65 - 199 mg/dL [facility] Comment: Supplemental ranges: <140 mg/dL before meals <180 mg/dL all other times of the day Blood 11/08/2023 12:1 2 PM EDT 11/08/2023 12:12 PM EDT Francis Roberts MD POINT OF CARE TEST ORDERABLES Performing Organization Address City/[facility] Co de Phone Number [facility] [place] [address] * POCT Glucose (11/08/2023 8:13 AM EDT) Glucose, POC 126 65 - 199 mg/dL [facility] Comment: Supplemental ranges: <140 mg/dL before meals <180 mg/dL all other times of the day Blood 11/08/2023 8:13 AM EDT 11/08/2023 8:13 AM EDT Francis Roberts MD POINT OF CARE TEST ORDERABLES Performing Organization Address [facility] Co de Phone Number [facility] [place] [address] * POCT Glucose (11/08/2023 3:51 AM EDT) Glucose, POC 108 65 - 199 mg/dL [facility] Comment: Supplemental ranges: <140 mg/dL before meals <180 mg/dL all other times of the day Blood 11/08/2023 3:51 AM EDT 11/08/2023 3:51 AM EDT Francis Roberts MD POINT OF CARE TEST ORDERABLES Performing Organization Address City/[facility] Co de Phone Number [facility] [place] [address] * (ABNORMAL) Differential, Automated (11/08/2023 12:18 AM EDT) Neutrophil % 67.2 % [facility] Neutrophil Absolute 7.18(H) 1.70 - 6.10 x10(3)/mc L [facility] Lymph % 16.9 % [facility] Lymphocytes Abs 1.8 0.9 - 3.2 x10(3)/[facility] Monocyte % 12.9 % [facility] Monocyte Abs 1.4(H) 0.3 - 0.9 x10(3)/[facility] Eos % 2.1 % [facility] Eosinophils Abs 0.2 0.0 - 0.4 x10(3)/[facility] Basophil % 0.5 % [facility] Baso Absolute 0.0 0.0 - 0.1 x10(3)/[facility] Immature Gran % 0.40 % [facility] Comment: Immature granulocytes(IG's)percentage and absolute count will include metamyelocytes, myelocytes, and promyelocytes. Blood smears from CBCs yielding IG's will be scanned manually for concordance. If this scan disagrees with the automated IG or if promyelocytes are noted, a manual differential will be performed. Immature Gran Absolute 0.04 0.00 - 0.04 x10(3)/[facility] Blood 11/08/2023 12:1 8 AM EDT 11/08/2023 12:45 AM EDT Narrative Resulting Agency Comment Spec In Lab Francis Roberts MD HEMATOLOGY ORDERABL ES [facility] [place] [address] * (ABNORMAL) Hemogram (11/08/2023 12:18 AM EDT) White Blood Cell 10.7(H) 4.0 - 9.5 x10(3)/[facility] Red Blood Cell 4.34 4.00 - 5.21 x10(6)/[facility] Hemoglobin 10.1(L) 11.7 - 15.5 g/dL [facility] Hematocrit 33.6(L) 35.7 - 45.8 % [facility] Mean Cell Volume 77.4(L) 82.6 - 94.4 fL [facility] Mean Cell Hemoglobin 23.3(L) 27.1 - 32.0 pg [facility] Mean Cell Hemoglobin Concentration 30.1(L) 31.7 - 35.0 g/dL [facility] Platelet 389(H) 145 - 357 x10(3)/mc L [facility] RDW Standard Deviation 52.9(H) 37.0 - 46.0 fL [facility] RDW coefficient of variation 18.9(H) 11.5 - 14.1 % [facility] Mean Platelet Volume 10.2 7.6 - 12.9 [facility] NRBC% auto 0.0 % [facility] NRBC Absolute 0.000 0.000 - 0.000 x10(3)/mc L [facility] Blood 11/08/2023 12:1 8 AM EDT 11/08/2023 12:45 AM EDT Narrative Resulting Agency Comment Spec In Lab Francis Roberts MD HEMATOLOGY ORDERABL ES Performing Organization Address City/[facility]/ZIP Co de Phone Number [facility] [place] [address] * POCT Glucose (11/08/2023 12:18 AM EDT) Glucose, POC 99 65 - 199 mg/dL [facility] Comment: Supplemental ranges: <140 mg/dL before meals <180 mg/dL all other times of the day Blood 11/08/2023 12:1 8 AM EDT 11/08/2023 12:18 AM EDT Francis Roberts MD POINT OF CARE TEST ORDERABLES Performing Organization Address City/[facility]/ZIP Co de Phone Number [facility] [place] [address] * Magnesium (11/08/2023 12:18 AM EDT) Magnesium 0.71 0.69 - 1.07 mmol/L [facility] Blood 11/08/2023 12:1 8 AM EDT 11/08/2023 12:45 AM EDT Narrative Resulting Agency Comment Spec In Lab Francis Roberts MD CHEMISTRY ORDERABLE S [facility] [place] [address] * Basic Metabolic Panel (non-fasting) (11/08/2023 12:18 AM EDT) Glucose 102 65 - 199 mg/dL [facility] Comment:Diabetes: >=200 mg/d L plus symptoms Blood Urea Nitrogen 11 8 - 18 mg/dL [facility] Creatinine 0.76 0.70 - 1.20 mg/dL [facility] Sodium 137 135 - 145 mmol/L [facility] Potassium 4.3 3.5 - 5.0 mmol/L [facility] Comment: Please note: ??Patients with WBC >100,000 may have falsely elevated Potassium levels. ??For accurate Potassium quantification in these patients send serum separator tube (gold top) for subsequent determinations. ??Contact the Clinical Chemistry Laboratory if there are any questions. Chloride 103 98 - 107 mmol/L [facility] Carbon Dioxide 25 22 - 31 mmol/L [facility] Anion Gap 9 5 - 15 mmol/L [facility] Calcium 8.5 8.5 - 10.5 mg/dL [facility] Est Glomerular Filtration Rate 82 >=60 mL/min/1. 73 m?? [facility] Comment: This patient's estimated GFR was [...] and symptoms in addition to eGFR. Blood 11/08/2023 12:1 8 AM EDT 11/08/2023 12:45 AM EDT Narrative Resulting Agency Comment Spec In Lab Francis Roberts MD CHEMISTRY ORDERABLE S [facility] [place] [address] * POCT Glucose (11/07/2023 7:24 PM EDT) Glucose, POC 188 65 - 199 mg/dL [facility] Comment: Supplemental ranges: <140 mg/dL before meals <180 mg/dL all other times of the day Blood 11/07/2023 7:24 PM EDT 11/07/2023 7:24 PM EDT Francis Roberts MD POINT OF CARE TEST ORDERABLES Performing Organization Address [facility]/ZIP Co de Phone Number [facility] [place] [address] * POCT Glucose (11/07/2023 5:42 PM EDT) Glucose, POC 153 65 - 199 mg/dL [facility] Comment: Supplemental ranges: <140 mg/dL before meals <180 mg/dL all other times of the day Blood 11/07/2023 5:42 PM EDT 11/07/2023 5:42 PM EDT Francis Roberts MD POINT OF CARE TEST ORDERABLES [facility] [place] [address] * POCT Glucose (11/07/2023 3:42 PM EDT) Glucose, POC 176 65 - 199 mg/dL [facility] Comment: Supplemental ranges: <140 mg/dL before meals <180 mg/dL all other times of the day Blood 11/07/2023 3:42 PM EDT 11/07/2023 3:42 PM EDT Francis Roberts MD POINT OF CARE TEST ORDERABLES Performing Organization Address City/[facility]/ZIP Co de Phone Number [facility] [place] [address] * Green Tube HOLD (11/07/2023 3:40 PM EDT) Green Hold Sample in lab. [facility] Blood No Charge / Unknown 11/07/2023 3:40 PM EDT 11/07/2023 3:46 PM EDT Ivy Peres MD CHEMISTRY ORDERAB LES Performing Organization Address City/[facility] Co de Phone Number [facility] [place] [address] * POCT Glucose (11/07/2023 11:46 AM EDT) Glucose, POC 167 65 - 199 mg/dL [facility] Comment: Supplemental ranges: <140 mg/dL before meals <180 mg/dL all other times of the day Blood 11/07/2023 11:4 6 AM EDT 11/07/2023 11:46 AM EDT Francis Roberts MD POINT OF CARE TEST ORDERABLES Performing Organization Address [facility] Co de Phone Number [facility] [place] [address] * (ABNORMAL) pro-Brain Natriuretic Peptide (11/07/2023 7:54 AM EDT) NT-proBNP 4,733(H) <=124 pg/mL [facility] Blood Venous Draw / Unknown 11/07/2023 7:54 AM EDT 11/07/2023 8:34 AM EDT Narrative Resulting Agency Comment Spec In Lab Francis Roberts MD CHEMISTRY ORDERABLE S [facility] [place] [address] * Basic Metabolic Panel (non-fasting) (11/07/2023 7:54 AM EDT) Glucose 111 65 - 199 mg/dL [facility] Comment:Diabetes: >=200 mg/d L plus symptoms Blood Urea Nitrogen 12 8 - 18 mg/dL [facility] Creatinine 0.89 0.70 - 1.20 mg/dL [facility] Sodium 139 135 - 145 mmol/L [facility] Potassium 4.7 3.5 - 5.0 mmol/L [facility] Comment: Please note: ??Patients with WBC >100,000 may have falsely elevated Potassium levels. ??For accurate Potassium quantification in these patients send serum separator tube (gold top) for subsequent determinations. ??Contact the Clinical Chemistry Laboratory if there are any questions. Chloride 103 98 - 107 mmol/L [facility] Carbon Dioxide 28 22 - 31 mmol/L [facility] Anion Gap 8 5 - 15 mmol/L [facility] Calcium 9.3 8.5 - 10.5 mg/dL [facility] Est Glomerular Filtration Rate 68 >=60 mL/min/1. 73 m?? [facility] Comment: This patient's estimated GFR was [...] and symptoms in addition to eGFR. Blood 11/07/2023 7:54 AM EDT 11/07/2023 8:01 AM EDT Narrative Resulting Agency Comment Spec In Lab Joaquim Georges MD CHEMISTRY ORDERABLES Performing Organization Address City/[facility]/ZIP Co de Phone Number [facility] [place] [address] * POCT Glucose (11/07/2023 7:52 AM EDT) Glucose, POC 97 65 - 199 mg/dL [facility] Comment: Supplemental ranges: <140 mg/dL before meals <180 mg/dL all other times of the day Blood 11/07/2023 7:52 AM EDT 11/07/2023 7:52 AM EDT Darlyn Flores MD POINT OF CARE CHANCE T ORDERABLES Performing Organization Address [facility] Co de Phone Number [facility] [place] [address] * POCT Glucose (11/07/2023 4:10 AM EDT) Glucose, POC 98 65 - 199 mg/dL [facility] Comment: Supplemental ranges: <140 mg/dL before meals <180 mg/dL all other times of the day Blood 11/07/2023 4:10 AM EDT 11/07/2023 4:10 AM EDT Darlyn Flores MD POINT OF CARE CHANCE T ORDERABLES Performing Organization Address City/[facility] Co de Phone Number [facility] [place] [address] * (ABNORMAL) Differential, Automated (11/07/2023 12:22 AM EDT) Neutrophil % 64.8 % [facility] Neutrophil Absolute 6.96(H) 1.70 - 6.10 x10(3)/mc L [facility] Lymph % 21.7 % [facility] Lymphocytes Abs 2.3 0.9 - 3.2 x10(3)/ L [facility] Monocyte % 10.6 % [facility] Monocyte Abs 1.1(H) 0.3 - 0.9 x10(3)/ L [facility] Eos % 2.0 % [facility] Eosinophils Abs 0.2 0.0 - 0.4 x10(3)/[facility] Basophil % 0.5 % [facility] Baso Absolute 0.0 0.0 - 0.1 x10(3)/[facility] Immature Gran % 0.40 % [facility] Comment: Immature granulocytes(IG's)percentage and absolute count will include metamyelocytes, myelocytes, and promyelocytes. Blood smears from CBCs yielding IG's will be scanned manually for concordance. If this scan disagrees with the automated IG or if promyelocytes are noted, a manual differential will be performed. Immature Gran Absolute 0.04 0.00 - 0.04 x10(3)/[facility] Blood 11/07/2023 12:2 2 AM EDT 11/07/2023 12:42 AM EDT Narrative Resulting Agency Comment Spec In Lab Darlyn Flores MD HEMATOLOGY ORDERA BLES [facility] [place] [address] * (ABNORMAL) Hemogram (11/07/2023 12:22 AM EDT) White Blood Cell 10.7(H) 4.0 - 9.5 x10(3)/[facility] Red Blood Cell 4.05 4.00 - 5.21 x10(6)/[facility] Hemoglobin 9.5(L) 11.7 - 15.5 g/dL [facility] Hematocrit 31.7(L) 35.7 - 45.8 % [facility] Mean Cell Volume 78.3(L) 82.6 - 94.4 fL [facility] Mean Cell Hemoglobin 23.5(L) 27.1 - 32.0 pg [facility] Mean Cell Hemoglobin Concentration 30.0(L) 31.7 - 35.0 g/dL [facility] Platelet 368(H) 145 - 357 x10(3)/mc L [facility] RDW Standard Deviation 53.1(H) 37.0 - 46.0 fL [facility] RDW coefficient of variation 18.9(H) 11.5 - 14.1 % [facility] Mean Platelet Volume 10.1 7.6 - 12.9 fL [facility] NRBC% auto 0.0 % [facility] NRBC Absolute 0.000 0.000 - 0.000 x10(3)/mc L [facility] Blood 11/07/2023 12:2 2 AM EDT 11/07/2023 12:42 AM EDT Narrative Resulting Agency Comment Spec In Lab Darlyn Flores MD HEMATOLOGY ORDERA BLES [facility] [place] [address] * Basic Metabolic Panel (non-fasting) (11/07/2023 12:22 AM EDT) Glucose 123 65 - 199 mg/dL [facility] Comment:Diabetes: >=200 mg/d L plus symptoms Blood Urea Nitrogen 17 8 - 18 mg/dL [facility] Creatinine 0.96 0.70 - 1.20 mg/dL [facility] Sodium 140 135 - 145 mmol/L [facility] Potassium 5.0 3.5 - 5.0 mmol/L [facility] Comment: Please note: ??Patients with WBC >100,000 may have falsely elevated Potassium levels. ??For accurate Potassium quantification in these patients send serum separator tube (gold top) for subsequent determinations. ??Contact the Clinical Chemistry Laboratory if there are any questions. Chloride 106 98 - 107 mmol/L [facility] Carbon Dioxide 26 22 - 31 mmol/L [facility] Anion Gap 8 5 - 15 mmol/L [facility] Calcium 8.7 8.5 - 10.5 mg/dL [facility] Est Glomerular Filtration Rate 62 >=60 mL/min/1. 73 m?? [facility] Comment: This patient's estimated GFR was [...] and symptoms in addition to eGFR. Blood 11/07/2023 12:2 2 AM EDT 11/07/2023 12:42 AM EDT Narrative Resulting Agency Comment Spec In Lab Joaquim Georges MD CHEMISTRY ORDERABLES Performing Organization Address [facility]/ZIP Co de Phone Number [facility] [place] [address] * Phosphorus (11/07/2023 12:22 AM EDT) Phosphorus 3.1 2.5 - 4.5 mg/dL [facility] Blood 11/07/2023 12:2 2 AM EDT 11/07/2023 12:42 AM EDT Narrative Resulting Agency Comment Spec In Lab Amber Pulido APRN CHEMISTRY ORDERABL ES Performing Organization Address City/[facility]/ZIP Co de Phone Number [facility] [place] [address] * (ABNORMAL) Magnesium (11/07/2023 12:22 AM EDT) Magnesium 0.68(L) 0.69 - 1.07 mmol/L [facility] Blood 11/07/2023 12:2 2 AM EDT 11/07/2023 12:42 AM EDT Narrative Resulting Agency Comment Spec In Lab Amber Pulido APRN CHEMISTRY ORDERABL ES Performing Organization Address City/[facility]/ZIP Co de Phone Number [facility] [address] * POCT Glucose (11/07/2023 12:18 AM EDT) Glucose, POC 117 65 - 199 mg/dL [facility] Comment: Supplemental ranges: <140 mg/dL before meals <180 mg/dL all other times of the day Blood 11/07/2023 12:1 8 AM EDT 11/07/2023 12:18 AM EDT Darlyn Flores MD POINT OF CARE CHANCE T ORDERABLES Performing Organization Address [facility]/ZIP Co de Phone Number [facility] [address] * POCT Glucose (11/06/2023 7:30 PM EDT) Glucose, POC 192 65 - 199 mg/dL [facility] Comment: Supplemental ranges: <140 mg/dL before meals <180 mg/dL all other times of the day Blood 11/06/2023 7:30 PM EDT 11/06/2023 7:30 PM EDT Darlyn Flores MD POINT OF CARE CHANCE T ORDERABLES Performing Organization Address City/[facility]/ZIP Co de Phone Number [facility] [place] [address] * POCT Glucose (11/06/2023 6:10 PM EDT) Glucose, POC 186 65 - 199 mg/dL [facility] Comment: Supplemental ranges: <140 mg/dL before meals <180 mg/dL all other times of the day Blood 11/06/2023 6:10 PM EDT 11/06/2023 6:10 PM EDT Darlyn Flores MD POINT OF CARE CHANCE T ORDERABLES Performing Organization Address City/[facility] Co de Phone Number [facility] [place] [address] * POCT Glucose (11/06/2023 3:52 PM EDT) Glucose, POC 179 65 - 199 mg/dL [facility] Comment: Supplemental ranges: <140 mg/dL before meals <180 mg/dL all other times of the day Blood 11/06/2023 3:52 PM EDT 11/06/2023 3:52 PM EDT Darlyn Flores MD POINT OF CARE CHANCE T ORDERABLES Performing Organization Address City/[facility] Co de Phone Number [facility] [address] * Basic Metabolic Panel (non-fasting) (11/06/2023 3:33 PM EDT) Glucose 178 65 - 199 mg/dL [facility] Comment:Diabetes: >=200 mg/d L plus symptoms Blood Urea Nitrogen 17 8 - 18 mg/dL [facility] Creatinine 0.92 0.70 - 1.20 mg/dL [facility] Sodium 135 135 - 145 mmol/L [facility] Potassium 4.8 3.5 - 5.0 mmol/L [facility] Comment: Please note: ??Patients with WBC >100,000 may have falsely elevated Potassium levels. ??For accurate Potassium quantification in these patients send serum separator tube (gold top) for subsequent determinations. ??Contact the Clinical Chemistry Laboratory if there are any questions. Chloride 103 98 - 107 mmol/L [facility] Carbon Dioxide 23 22 - 31 mmol/L [facility] Anion Gap 9 5 - 15 mmol/L [facility] Calcium 8.6 8.5 - 10.5 mg/dL [facility] Est Glomerular Filtration Rate 65 >=60 mL/min/1. 73 m?? [facility] Comment: This patient's estimated GFR was [...] and symptoms in addition to eGFR. Blood 11/06/2023 3:33 PM EDT 11/06/2023 4:06 PM EDT Narrative Resulting Agency Comment Spec In Lab Joaquim Georges MD CHEMISTRY ORDERABLES [facility] [place] [address] * (ABNORMAL) POCT Glucose (11/06/2023 12:19 PM EDT) Glucose, POC 215(H) 65 - 199 mg/dL [facility] Comment: Supplemental ranges: <140 mg/dL before meals <180 mg/dL all other times of the day Blood 11/06/2023 12:1 9 PM EDT 11/06/2023 12:19 PM EDT Darlyn Flores MD POINT OF CARE CHANCE T ORDERABLES [facility] [place] [address] * POCT Glucose (11/06/2023 7:48 AM EDT) Glucose, POC 138 65 - 199 mg/dL [facility] Comment: Supplemental ranges: <140 mg/dL before meals <180 mg/dL all other times of the day Blood 11/06/2023 7:48 AM EDT 11/06/2023 7:48 AM EDT Joaquim Georges MD POINT OF CARE TEST O RDERABLES [facility] [place] [address] * (ABNORMAL) Basic Metabolic Panel (non-fasting) (11/06/2023 7:45 AM EDT) Glucose 137 65 - 199 mg/dL [facility] Comment:Diabetes: >=200 mg/d L plus symptoms Blood Urea Nitrogen 19(H) 8 - 18 mg/dL [facility] Creatinine 0.91 0.70 - 1.20 mg/dL [facility] Sodium 141 135 - 145 mmol/L [facility] Potassium 5.3(H) 3.5 - 5.0 mmol/L [facility] Comment: Please note: ??Patients with WBC >100,000 may have falsely elevated Potassium levels. ??For accurate Potassium quantification in these patients send serum separator tube (gold top) for subsequent determinations. ??Contact the Clinical Chemistry Laboratory if there are any questions. Chloride 106 98 - 107 mmol/L [facility] Carbon Dioxide 24 22 - 31 mmol/L [facility] Anion Gap 11 5 - 15 mmol/L [facility] Calcium 8.5 8.5 - 10.5 mg/dL [facility] Est Glomerular Filtration Rate 66 >=60 mL/min/1. 73 m?? [facility] Comment: This patient's estimated GFR was [...] and symptoms in addition to eGFR. Blood 11/06/2023 7:45 AM EDT 11/06/2023 7:54 AM EDT Narrative Resulting Agency Comment Spec In Lab Joaquim Georges MD CHEMISTRY ORDERABLES Performing Organization Address City/[facility]/ZIP Co de Phone Number [facility] [place] [address] * POCT Glucose (11/06/2023 4:19 AM EDT) Glucose, POC 107 65 - 199 mg/dL [facility] Comment: Supplemental ranges: <140 mg/dL before meals <180 mg/dL all other times of the day Blood 11/06/2023 4:19 AM EDT 11/06/2023 4:19 AM EDT Joaquim Georges MD POINT OF CARE TEST O RDERABLES Performing Organization Address [facility] Co de Phone Number [facility] [place] [address] * POCT Glucose (11/06/2023 3:08 AM EDT) Glucose, POC 97 65 - 199 mg/dL [facility] Comment: Supplemental ranges: <140 mg/dL before meals <180 mg/dL all other times of the day Blood 11/06/2023 3:08 AM EDT 11/06/2023 3:08 AM EDT Joaquim Georges MD POINT OF CARE TEST O RDERAMICHELE Performing Organization Address [facility]/ZIP Co de Phone Number [facility] [place] [address] * POCT Glucose (11/06/2023 2:04 AM EDT) Pathologist [facility] Glucose, POC 102 65 - 199 mg/dL [facility] Comment: Supplemental ranges: <140 mg/dL before meals <180 mg/dL all other times of the day Blood 11/06/2023 2:04 AM EDT 11/06/2023 2:04 AM EDT Joaqumi Georges MD POINT OF CARE TEST O RDERABLES [facility] [place] [address] * C-peptide (11/06/2023 1:44 AM EDT) [facility] C-Peptide 2.0 1.1 - 4.4 ng/mL [facility] Comment:Reference intervals derived from fasting individuals Blood Venous Draw / Unknown 11/06/2023 1:44 AM EDT 11/06/2023 1:50 AM EDT Narrative Resulting Agency Comment Spec In Lab Zoe Cleveland APRN CHEMISTRY ORDERABLE S Performing Organization Address [facility]/ZIP Co de Phone Number [facility] [place] [address] * Potassium (11/06/2023 1:44 AM EDT) [facility] Potassium 4.9 3.5 - 5.0 mmol/L [facility] Comment: Please note: ??Patients with WBC >100,000 may have falsely elevated Potassium levels. ??For accurate Potassium quantification in these patients send serum separator tube (gold top) for subsequent determinations. ??Contact the Clinical Chemistry Laboratory if there are any questions. Blood 11/06/2023 1:44 AM EDT 11/06/2023 1:49 AM EDT Narrative Resulting Agency Comment Spec In Lab Joaquim Georges MD CHEMISTRY ORDERABLES Performing Organization Address City/[facility]/ZIP Co de Phone Number [facility] [place] [address] * POCT Glucose (11/06/2023 1:16 AM EDT) Glucose, POC 86 65 - 199 mg/dL [facility] Comment: Supplemental ranges: <140 mg/dL before meals <180 mg/dL all other times of the day Blood 11/06/2023 1:16 AM EDT 11/06/2023 1:16 AM EDT Joaquim Georges MD POINT OF CARE TEST O RDERICKA [facility] [place] [address] * POCT Glucose (11/06/2023 12:46 AM EDT) Glucose, POC 75 65 - 199 mg/dL [facility] Comment: Supplemental ranges: <140 mg/dL before meals <180 mg/dL all other times of the day Blood 11/06/2023 12:4 6 AM EDT 11/06/2023 12:46 AM EDT Joaquim Georges MD POINT OF CARE TEST O RUBEN [facility] [place] [address] * POCT Glucose (11/06/2023 12:18 AM EDT) Glucose, POC 75 65 - 199 mg/dL [facility] Comment: Supplemental ranges: <140 mg/dL before meals <180 mg/dL all other times of the day Blood 11/06/2023 12:1 8 AM EDT 11/06/2023 12:18 AM EDT Joaquim Georges MD POINT OF CARE TEST O RUBEN [facility] [place] [address] * (ABNORMAL) Basic Metabolic Panel (non-fasting) (11/05/2023 11:45 PM EDT) Glucose 85 65 - 199 mg/dL [facility] Comment:Diabetes: >=200 mg/d L plus symptoms Blood Urea Nitrogen 22(H) 8 - 18 mg/dL [facility] Creatinine 1.03 0.70 - 1.20 mg/dL [facility] Sodium 140 135 - 145 mmol/L [facility] Potassium Not Perf 3.5 - 5.0 [facility] Comment: Unable to quantitate due to sample hemolysis. ??Sample redraw suggested. Called by: , Read back by: Rema Cedeno, Date/Time:11/06/23 00:33. Please note: ??Patients with WBC >100,000 may have falsely elevated Potassium levels. ??For accurate Potassium quantification in these patients send serum separator tube (gold top) for subsequent determinations. ??Contact the Clinical Chemistry Laboratory if there are any questions. Chloride 109(H) 98 - 107 mmol/L [facility] Carbon Dioxide 24 22 - 31 mmol/L [facility] Anion Gap 7 5 - 15 mmol/L [facility] Calcium 8.6 8.5 - 10.5 mg/dL [facility] Est Glomerular Filtration Rate 57(L) >=60 mL/min/1. 73 m?? [facility] Comment: This patient's estimated GFR was [...] and symptoms in addition to eGFR. Blood 11/05/2023 11:4 5 PM EDT 11/05/2023 11:56 PM EDT Narrative Resulting Agency Comment Spec In Lab Joaquim Georges MD CHEMISTRY ORDERABLES Performing Organization Address [facility] Co de Phone Number [facility] [place] [address] * Phosphorus (11/05/2023 11:45 PM EDT) Phosphorus 3.3 2.5 - 4.5 mg/dL [facility] Blood 11/05/2023 11:4 5 PM EDT 11/05/2023 11:56 PM EDT Narrative Resulting Agency Comment Spec In Lab Amber Rangel Pulido PSYCHOLOGICAL OPERATIONS SPECIALIST CHEMISTRY ORDERABL ES Performing Organization Address [facility] Phone Number [facility] [place] [address] * Magnesium (11/05/2023 11:45 PM EDT) Magnesium 0.88 0.69 - 1.07 mmol/L [facility] Blood 11/05/2023 11:4 5 PM EDT 11/05/2023 11:56 PM EDT Narrative Resulting Agency Comment Spec In Lab Amber Pulido PSYCHOLOGICAL OPERATIONS SPECIALIST CHEMISTRY ORDERABL ES Performing Organization Address [facility] de Phone Number [facility] [place] [address] * POCT Glucose (11/05/2023 11:43 PM EDT) Glucose, POC 91 65 - 199 mg/dL [facility] Comment: Supplemental ranges: <140 mg/dL before meals <180 mg/dL all other times of the day Blood 11/05/2023 11:4 3 PM EDT 11/05/2023 11:43 PM EDT Joaquim Georges MD POINT OF CARE TEST O RDERABLES Performing Organization Address [facility] Co de Phone Number [facility] [place] [address] * POCT Glucose (11/05/2023 11:04 PM EDT) Glucose, POC 114 65 - 199 mg/dL [facility] Comment: Supplemental ranges: <140 mg/dL before meals <180 mg/dL all other times of the day Blood 11/05/2023 11:0 4 PM EDT 11/05/2023 11:04 PM EDT Joaquim Georges MD POINT OF CARE TEST O RDERAMICHELE [facility] [place] [address] * POCT Glucose (11/05/2023 10:03 PM EDT) Glucose, POC 179 65 - 199 mg/dL [facility] Comment: Supplemental ranges: <140 mg/dL before meals <180 mg/dL all other times of the day Blood 11/05/2023 10:0 3 PM EDT 11/05/2023 10:03 PM EDT Joaquim Georges MD POINT OF CARE TEST O RDERAMICHELE [facility] [place] [address] * (ABNORMAL) POCT Glucose (11/05/2023 9:09 PM EDT) Glucose, POC 247(H) 65 - 199 mg/dL [facility] Comment: Supplemental ranges: <140 mg/dL before meals <180 mg/dL all other times of the day Blood 11/05/2023 9:09 PM EDT 11/05/2023 9:09 PM EDT Joaquim Georges MD POINT OF CARE TEST O RDERAMICHELE [facility] [place] [address] * (ABNORMAL) POCT Glucose (11/05/2023 8:15 PM EDT) Glucose, POC 254(H) 65 - 199 mg/dL [facility] Comment: Supplemental ranges: <140 mg/dL before meals <180 mg/dL all other times of the day Blood 11/05/2023 8:15 PM EDT 11/05/2023 8:15 PM EDT Joaquim Georges MD POINT OF CARE TEST O RDERAMICHELE [facility] [place] [address] * POCT Glucose (11/05/2023 6:46 PM EDT) Glucose, POC 165 65 - 199 mg/dL [facility] Comment: Supplemental ranges: <140 mg/dL before meals <180 mg/dL all other times of the day Blood 11/05/2023 6:46 PM EDT 11/05/2023 6:46 PM EDT Joaquim Georges MD POINT OF CARE TEST O JUAN MANUELERAMICHELE Performing Organization Address City/[facility]/ZIP Co de Phone Number [facility] [place] [address] * POCT Glucose (11/05/2023 5:55 PM EDT) Glucose, POC 131 65 - 199 mg/dL [facility] Comment: Supplemental ranges: <140 mg/dL before meals <180 mg/dL all other times of the day Blood 11/05/2023 5:55 PM EDT 11/05/2023 5:55 PM EDT Joaquim Georges MD POINT OF CARE TEST O RDERAMICHELE [facility] [place] [address] * (ABNORMAL) BLOOD GAS 2 VENOUS (11/05/2023 4:16 PM EDT) pH, Venous 7.34 7.32 - 7.42 [facility] PCO2, Venous 42 41 - 51 mmHg [facility] PO2, Venous 32 25 - 40 mmHg [facility] Bicarbonate, Venous 22.0 mmol/L [facility] Base Excess, Venous -3.7 mmol/L [facility] Hgb Blood Gas 10.0(L) 11.7 - 15.5 g/dL [facility] Oxyhemoglobin, Venous 53.9 % [facility] Carboxyhemoglob in, Venous 0.3 % [facility] Comment: Nonsmokers: 0.5-1.5% COHB Smokers: Variable, but usually less than 10% Toxic: 20-30% COHB Lethal: Greater than 60% COHB Methemoglobin, Venous 0.7 <=1.5 % [facility] Na Whole Blood 134(L) 135 - 145 mmol/L [facility] K Whole Blood 4.8 3.5 - 5.0 mmol/L [facility] Comment: Please note: Patients with WBC >100,000 may have falsely elevated Potassium levels. Contact the Clinical Chemistry Laboratory if there are any questions. ICa Whole Blood 1.17 1.15 - 1.33 mmol/L [facility] Comment: Note: ??Total bilirubin higher than 20 mg/dL may lead to falsely low ionized calcium. CL Whole Blood 104 98 - 107 mmol/L [facility] Gluc Whole Bld 143 65 - 199 mg/dL [facility] Comment:Diabetes: >=200 mg/d L plus symptoms Lactate WB 1.6 0.5 - 2.2 mmol/L [facility] Flow, Jorge 2.0 LPM [facility] Blood Gas Source Venous [facility] Blood 11/05/2023 4:16 PM EDT 11/05/2023 4:16 PM EDT Joaquim Georges MD POINT OF CARE TEST O RUBEN Performing Organization Address City/[facility]/ZIP Co de Phone Number [facility] [place] [address] * POCT Glucose (11/05/2023 4:11 PM EDT) Glucose, POC 143 65 - 199 mg/dL [facility] Comment: Supplemental ranges: <140 mg/dL before meals <180 mg/dL all other times of the day Blood 11/05/2023 4:11 PM EDT 11/05/2023 4:11 PM EDT Joaquim Georges MD POINT OF CARE TEST O RUBEN Performing Organization Address [facility]/ZIP Co de Phone Number [facility] [place] [place] [address] * POCT Glucose (11/05/2023 2:58 PM EDT) Glucose, POC 188 65 - 199 mg/dL [facility] Comment: Supplemental ranges: <140 mg/dL before meals <180 mg/dL all other times of the day Blood 11/05/2023 2:58 PM EDT 11/05/2023 2:58 PM EDT Joaquim Georges MD POINT OF CARE TEST O RUBEN Performing Organization Address City/[facility]/ZIP Co de Phone Number [facility] [place] [address] * POCT Glucose (11/05/2023 2:01 PM EDT) Glucose, POC 107 65 - 199 mg/dL [facility] Comment: Supplemental ranges: <140 mg/dL before meals <180 mg/dL all other times of the day Blood 11/05/2023 2:01 PM EDT 11/05/2023 2:01 PM EDT Kiko Che MD POINT OF CARE TEST ORDERABLES Performing Organization Address [facility] Co de Phone Number [facility] [place] [address] * POCT Glucose (11/05/2023 1:29 PM EDT) Glucose, POC 106 65 - 199 mg/dL [facility] Comment: Supplemental ranges: <140 mg/dL before meals <180 mg/dL all other times of the day Blood 11/05/2023 1:29 PM EDT 11/05/2023 1:29 PM EDT Kiko Che MD POINT OF CARE TEST ORDERABLES Performing Organization Address [facility] de Phone Number [facility] [place] [address] * POCT Glucose (11/05/2023 1:02 PM EDT) Glucose, POC 110 65 - 199 mg/dL [facility] Comment: Supplemental ranges: <140 mg/dL before meals <180 mg/dL all other times of the day Blood 11/05/2023 1:02 PM EDT 11/05/2023 1:02 PM EDT Kiko Che MD POINT OF CARE TEST ORDERABLES Performing Organization Address [facility] Co de Phone Number [facility] [place] [address] * (ABNORMAL) BMP w/fasting Glucose (11/05/2023 12:24 PM EDT) Glucose Fasting 115(H) 65 - 99 mg/dL [facility] Comment: ?Fasting* Glucose Interpretive Criteria Normal ?65-99 mg/dL Impaired Fasting glucose ?100-125 mg/dL Consistent with Diabetes Mellitus ? >or= 126 mg/dL *Fasting is defined as no caloric intake for at least 8 hours In the absence of unequivocal hyperglycemia a plasma glucose value of >or= 126 mg/dL should be repeated on a subsequent day. Diagnosis and Classification of Diabetes Mellitus, Position Statement from the [place] [employer]. ??Diabetes Care, Volume 33, Supplement 1, Jun 2009 Blood Urea Nitrogen 27(H) 8 - 18 mg/dL [facility] Creatinine 1.13 0.70 - 1.20 mg/dL [facility] Sodium 137 135 - 145 mmol/L [facility] Potassium 4.8 3.5 - 5.0 mmol/L [facility] Comment: Please note: ??Patients with WBC >100,000 may have falsely elevated Potassium levels. ??For accurate Potassium quantification in these patients send serum separator tube (gold top) for subsequent determinations. ??Contact the Clinical Chemistry Laboratory if there are any questions. Chloride 106 98 - 107 mmol/L [facility] Carbon Dioxide 21(L) 22 - 31 mmol/L [facility] Anion Gap 10 5 - 15 mmol/L [facility] Calcium 8.3(L) 8.5 - 10.5 mg/dL [facility] Est Glomerular Filtration Rate 51(L) >=60 mL/min/1. 73 m?? [facility] Comment: This patient's estimated GFR was [...] and symptoms in addition to eGFR. Blood 11/05/2023 12:2 4 PM EDT 11/05/2023 12:41 PM EDT Narrative Resulting Agency Comment Spec In Lab Kianna WANG CHEMISTRY ORDERABLES Performing Organization Address City/[facility]/ZIP Co de Phone Number [facility] [place] [address] * C-peptide (11/05/2023 12:24 PM EDT) C-Peptide 1.5 1.1 - 4.4 ng/mL [facility] Comment:Reference intervals derived from fasting individuals Blood 11/05/2023 12:2 4 PM EDT 11/05/2023 12:34 PM EDT Narrative Resulting Agency Comment Spec In Lab Kiko Che MD CHEMISTRY ORDERABL ES Performing Organization Address [facility] Co de Phone Number [facility] [place] [address] * POCT Glucose (11/05/2023 12:09 PM EDT) Glucose, POC 135 65 - 199 mg/dL [facility] Comment: Supplemental ranges: <140 mg/dL before meals <180 mg/dL all other times of the day Blood 11/05/2023 12:0 9 PM EDT 11/05/2023 12:09 PM EDT Kiko Che MD POINT OF CARE TEST ORDERABLES Performing Organization Address [facility]/ZIP Co de Phone Number [facility] [place] [place] [address] * POCT Glucose (11/05/2023 11:40 AM EDT) Glucose, POC 130 65 - 199 mg/dL [facility] Comment: Supplemental ranges: <140 mg/dL before meals <180 mg/dL all other times of the day Blood 11/05/2023 11:4 0 AM EDT 11/05/2023 11:40 AM EDT Kiko Che MD POINT OF CARE TEST ORDERABLES [facility] [place] [address] * POCT Glucose (11/05/2023 11:03 AM EDT) Glucose, POC 137 65 - 199 mg/dL [facility] Comment: Supplemental ranges: <140 mg/dL before meals <180 mg/dL all other times of the day Blood 11/05/2023 11:0 3 AM EDT 11/05/2023 11:03 AM EDT Kiko Che MD POINT OF CARE TEST ORDERABLES Performing Organization Address [facility] de Phone Number [facility] [place] [place] [address] * ECHO COMPLETE W CONTRAST (11/05/2023 10:22 AM EDT) EF 70 HEARTLAB SYSTEM Anatomical Region Laterality Modality Cardiac Other 11/05/2023 8:42 AM EDT Narrative 11/05/2023 10:39 AM [place] [address] [place] [address] ? Echocardiogram Report Name: HOPE YEE ?Study Date: 11/05/2023 08:42 AM ? Patient Location: [facility] IC15 A : 1950 ? Height: 168 cm ? Account: [id number] Age: 73 yrs ? Weight: 88 kg Gender: Female ?BSA: 2.0 m2 Ordering Physician: ABRAN REYNA Referring Physician: ELSIE OLIVARES Performed By: Chio Ibanez RDCS Reason For Study: atrial fibrillation Interpreting Fellow: Andrade Osborn. Exam Location: [facility]. Interpretation Summary Normal left ventricular size with hyperdynamic systolic function. Ejection fraction is visually 70%. There are no regional wall motion abnormalities. The right ventricle is mildly dilated with normal systolic function. There is no significant valvular disease. Compared to prior echo from 01/08/18, there are no major changes. Procedure Complete-[id number]. Image enhancement Optison was used for left ventricular opacification. Suboptimal quality. Left Ventricle Left ventricle is of normal size. Wall thickness is normal. Left ventricular systolic function is hyperdynamic. Left ventricular ejection fraction is estimated visually at 70%. There are no segmental wall motion abnormalities. Right Ventricle Right ventricle is mildly dilated. Right ventricular systolic function is normal. Left Atrium The left atrium is mildly dilated. No abnormality of the interatrial septum is identified. Right Atrium The right atrium is probably normal in size. Aortic Valve The aortic valve is structurally and functionally normal. There is no aortic stenosis. There is no aortic regurgitation. Mitral Valve The mitral valve is structurally and functionally normal. There is no mitral stenosis. There is mild mitral regurgitation. Tricuspid Valve The tricuspid valve is structurally and functionally normal. There is no tricuspid stenosis. There is mild tricuspid regurgitation. Pulmonic Valve The pulmonic valve is not well visualized. There is trace pulmonic valve regurgitation. Great Arteries The aortic root is of normal size. No abnormalities are identified. The ascending aorta is not well visualized. Venous Inferior vena cava is normal in size. Inferior vena cava collapse greater than 50% with respiration. Pericardium/Pleural A pericardial fat pad is present. Ejection Fraction ?2D Measurements ? Volumes EF(MOD-bp): 77.6 % ?IVSd: 0.91 cm ?LAV(MOD- bp) Indexed: ?LVIDd: 3.9 cm ?35.6 ml/m2 ?LVIDs: 2.2 cm ?EDV(MOD-bp) Indexed: ?LVPWd: 0.84 cm ?RWT: 0.43 {ratio} ?32.7 ml/m2 ?LV mass(C)d: 102.0 grams ? ESV(MOD- bp) Indexed: ? 7.3 ml/m2 ?LV mass(C)dI: 51.8 grams/m2 ?SV(LVOT): 59.0 ml ?Ao root diam: 2.8 cm ?Ao root diam index: 1.4 ?SI(LVOT): 29.9 ml/m2 ?LVOT diam: 1.9 cm ?TAPSE_phl: 1.8 cm Doppler LV V1 VTI: 21.3 cm Ao V2 VTI: 25.3 cm Ao Max: 151.7 cm/sec Ao valve max: 9.2 mmHg Ao valve mean: 4.8 mmHg MV E max rebecca: 145.8 cm/sec MV dec time: 0.21 sec Lat Peak E' Rebecca: 9.9 cm/sec E/ e' (lat): 14.7 Med Peak E' Rebecca: 9.9 cm/sec E/e' (med): 14.7 E/e' Average: 14.7 GREGORIO(I,D): 2.3 cm2 Dimensionless index Aov: 0.84 TR max rebecca: 270.3 cm/sec I ?WMSI = 1.00 ? % Normal = 100 ?Segments ??Size X - Cannot ?? 1 - Normal ?? 2 - ? 3 - Akinetic 4 - ?1-2 ? small Interpret ? Hypokinetic ?Dyskinetic ?? 3-5 ? moderate 5 - ? 6-14 ?large Aneurysmal ?15-16 ?? diffuse Procedure Note Ran Tran MD - 11/05/2023 [address] [place] [address] Echocardiogram Report Name: HOPE YEE Study Date: 408:42 AM Patient Location: [address] : 1950 Height: 168 cm Account: [id number] Age: 73 yrs Weight: 88 kg Gender: Female BSA: 2.0 m2 Ordering Physician: ABRAN REYNA Referring Physician: ELSIE OLIVARES Performed By: Chio Ibanez RDCS Reason For Study: atrial fibrillation Interpreting Fellow: Andrade Osborn. Exam Location: [facility]. Interpretation Summary Normal left ventricular size with hyperdynamic systolic function.Ejection fraction is visually 70%. There are no regional wall motionabnormalities. The right ventricle is mildly dilated with normal systolic function. There is no significant valvular disease. Compared to prior echo from 01/08/18, there are no major changes. Procedure Complete-[id number]. Image enhancement Optison was used for left ventricular opacification. Suboptimal quality. Left Ventricle Left ventricle is of normal size. Wall thickness is normal. Leftventricular systolic function is hyperdynamic. Left ventricular ejection fraction isestimated visually at 70%. There are no segmental wall motion abnormalities. Right Ventricle Right ventricle is mildly dilated. Right ventricular systolic function isnormal. Left Atrium The left atrium is mildly dilated. No abnormality of the interatrialseptum is identified. Right Atrium The right atrium is probably normal in size. Aortic Valve The aortic valve is structurally and functionally normal. There is noaortic stenosis. There is no aortic regurgitation. Mitral Valve The mitral valve is structurally and functionally normal. There is nomitral stenosis. There is mild mitral regurgitation. Tricuspid Valve The tricuspid valve is structurally and functionally normal. There is notricuspid stenosis. There is mild tricuspid regurgitation. Pulmonic Valve The pulmonic valve is not well visualized. There is trace pulmonic valve regurgitation. Great Arteries The aortic root is of normal size. No abnormalities are identified. Theascending aorta is not well visualized. Venous Inferior vena cava is normal in size. Inferior vena cava collapse greaterthan 50% with respiration. Pericardium/Pleural A pericardial fat pad is present. Ejection Fraction 2D Measurements Volumes EF(MOD-bp): 77.6 % IVSd: 0.91 cm LAV(MOD-bp)Indexed: LVIDd: 3.9 cm 35.6 ml/m2 LVIDs: 2.2 cm EDV(MOD-bp)Indexed: LVPWd: 0.84 cm RWT: 0.43 {ratio} 32.7 ml/m2 LV mass(C)d: 102.0 grams ESV(MOD-bp)Indexed: 7.3 ml/m2 LV mass(C)dI: 51.8 grams/m2 SV(LVOT): 59.0ml Ao root diam: 2.8 cm Ao root diam index: 1.4 SI(LVOT): 29.9ml/m2 LVOT diam: 1.9 cm TAPSE_phl: 1.8 cm Doppler LV V1 VTI: 21.3 cm Ao V2 VTI: 25.3 cm Ao Max: 151.7 cm/sec Ao valve max: 9.2 mmHg Ao valve mean: 4.8 mmHg MV E max rebecca: 145.8 cm/sec MV dec time: 0.21 sec Lat Peak E' Rebecca: 9.9 cm/sec E/ e' (lat): 14.7 Med Peak E' Rebecca: 9.9 cm/sec E/e' (med): 14.7 E/e' Average: 14.7 GREGORIO(I,D): 2.3 cm2 Dimensionless index Aov: 0.84 TR max rebecca: 270.3 cm/sec I WMSI = 1.00 % Normal = 100 SegmentsSize X - Cannot 1 - Normal 2 - 3 - Akinetic 4 - 1-2small Interpret Hypokinetic Dyskinetic 3-5moderate 5 - 6-14large Aneurysmal 15-16diffuse Abran Reyna APRN ECHO ORDERABLES * POCT Glucose (11/05/2023 10:03 AM EDT) Glucose, POC 165 65 - 199 mg/dL [facility] Comment: Supplemental ranges: <140 mg/dL before meals <180 mg/dL all other times of the day Blood 11/05/2023 10:0 3 AM EDT 11/05/2023 10:03 AM EDT Kiko Che MD POINT OF CARE TEST ORDERABLES [facility] [place] [address] * (ABNORMAL) POCT Glucose (11/05/2023 9:13 AM EDT) Glucose, POC 204(H) 65 - 199 mg/dL [facility] Comment: Supplemental ranges: <140 mg/dL before meals <180 mg/dL all other times of the day Blood 11/05/2023 9:13 AM EDT 11/05/2023 9:13 AM EDT Kiko Che MD POINT OF CARE TEST ORDERABLES [facility] [place] [address] * (ABNORMAL) Basic Metabolic Panel (non-fasting) (11/05/2023 8:00 AM EDT) Glucose 301(H) 65 - 199 mg/dL [facility] Comment:Diabetes: >=200 mg/d L plus symptoms Blood Urea Nitrogen 30(H) 8 - 18 mg/dL [facility] Creatinine 1.23(H) 0.70 - 1.20 mg/dL [facility] Sodium 134(L) 135 - 145 mmol/L [facility] Potassium 5.3(H) 3.5 - 5.0 mmol/L [facility] Comment: Please note: ??Patients with WBC >100,000 may have falsely elevated Potassium levels. ??For accurate Potassium quantification in these patients send serum separator tube (gold top) for subsequent determinations. ??Contact the Clinical Chemistry Laboratory if there are any questions. Chloride 103 98 - 107 mmol/L [facility] Carbon Dioxide 18(L) 22 - 31 mmol/L [facility] Anion Gap 13 5 - 15 mmol/L [facility] Calcium 8.3(L) 8.5 - 10.5 mg/dL [facility] Est Glomerular Filtration Rate 46(L) >=60 mL/min/1. 73 m?? [facility] Comment: This patient's estimated GFR was [...] and symptoms in addition to eGFR. Blood 11/05/2023 8:00 AM EDT 11/05/2023 8:19 AM EDT Narrative Resulting Agency Comment Spec In Lab Abran Reyna APRN CHEMISTRY ORDERABLES [facility] [place] [address] * (ABNORMAL) POCT Glucose (11/05/2023 7:52 AM EDT) Glucose, POC 276(H) 65 - 199 mg/dL [facility] Comment: Supplemental ranges: <140 mg/dL before meals <180 mg/dL all other times of the day Blood 11/05/2023 7:52 AM EDT 11/05/2023 7:52 AM EDT Kiko Che MD POINT OF CARE TEST ORDERABLES [facility] [place] [address] * (ABNORMAL) POCT Glucose (11/05/2023 6:55 AM EDT) Glucose, POC 333(H) 65 - 199 mg/dL [facility] Comment: Supplemental ranges: <140 mg/dL before meals <180 mg/dL all other times of the day Blood 11/05/2023 6:55 AM EDT 11/05/2023 6:55 AM EDT Kiko Che MD POINT OF CARE TEST ORDERABLES [facility] [place] [address] * (ABNORMAL) BLOOD GAS 2 VENOUS (11/05/2023 6:04 AM EDT) pH, Venous 7.29(Criti sanjuana) 7.32 - 7.42 [facility] Comment:Noted by brass wind instruments tube bender. PCO2, Venous 34(L) 41 - 51 mmHg [facility] PO2, Venous 48(H) 25 - 40 mmHg [facility] Bicarbonate, Venous 15.9 mmol/L [facility] Base Excess, Venous -10.7 mmol/L [facility] Hgb Blood Gas 10.5(L) 11.7 - 15.5 g/dL [facility] Oxyhemoglobin, Venous 76.9 % [facility] Carboxyhemoglo bin, Venous 0.3 % [facility] Comment: Nonsmokers: 0.5-1.5% COHB Smokers: Variable, but usually less than 10% Toxic: 20-30% COHB Lethal: Greater than 60% COHB Methemoglobin, Venous 0.5 <=1.5 % [facility] Na Whole Blood 129(L) 135 - 145 mmol/L [facility] K Whole Blood 5.5(H) 3.5 - 5.0 mmol/L [facility] Comment: Please note: Patients with WBC >100,000 may have falsely elevated Potassium levels. Contact the Clinical Chemistry Laboratory if there are any questions. ICa Whole Blood 1.14(L) 1.15 - 1.33 mmol/L [facility] Comment: Note: ??Total bilirubin higher than 20 mg/dL may lead to falsely low ionized calcium. CL Whole Blood 100 98 - 107 mmol/L [facility] Gluc Whole Bld 450(H) 65 - 199 mg/dL [facility] Comment:Diabetes: >=200 mg/d L plus symptoms Lactate WB 4.1(Critic al) 0.5 - 2.2 mmol/L [facility] Comment:Noted by brass wind instruments tube bender. Flow, Jorge 3.0 LPM [facility] Blood Gas Source Venous [facility] Temperature, Venous 37.0 Celsius [facility] Blood 11/05/2023 6:04 AM EDT 11/05/2023 6:04 AM EDT Kiko Che MD POINT OF CARE TEST ORDERABLES [facility] [place] [address] * (ABNORMAL) Hemoglobin A1c (11/05/2023 6:00 AM EDT) Hemoglobin A1c 13.1(H) 4.3 - 5.6 % [facility] Comment: Reference Range: 4.3 - 5.6% [...] Mellitus, Diabetes Care 2013; 36: Suppl. 1, S65-52 Estimated Average Glucose See note mg/dL [facility] Comment: Estimated Average Glucose not appropriate for patients over 70 years of age. Blood 11/05/2023 6:00 AM EDT 11/05/2023 6:06 AM EDT Narrative Resulting Agency Comment Spec In Lab Abran Reyna SHO CHEMISTRY ORDERABLES [facility] [place] [id number] * (ABNORMAL) Troponin (11/05/2023 6:00 AM EDT) Troponin-T, High Sensitivity 29(H) <=14 ng/L [facility] Comment: This patient's troponin T concentration was determined using the Michelle 5th Generation troponin T assay. The 99th percentile for Troponin T for this test is 14 ng/L for females, and 22 ng/L for males. According to the fourth universal definition of myocardial infarction, the term acute myocardial infarction should be used when there is acute myocardial injury with clinical evidence of acute myocardial ischemia and with detection of a rise and/or fall of cardiac troponin values with at least one value above the 99th percentile and at least one of the following: - Symptoms of myocardial ischemia; - New ischemic ECG changes; - Development of pathological Q waves; - Imaging evidence of new loss of viable myocardium or new regional wall motion abnormality in a pattern consistent with an ischemic etiology; - Identification of a coronary thrombus by angiography or autopsy (not for type 2 or 3 MIs) Serial measurement of troponin and the change in troponin concentration over time (delta) is crucial for the diagnosis of acute myocardial infarction. Guidance on the interpretation of the new 5th Generation Troponin T values and the delta troponin value can be found in the [facility] Test Catalog Troponin - [facility] Test Catalog Reference: Fourth [place] Definition of Myocardial Infarction. Journal of the [place] College [employer] 2018;72:4731-4510 Blood 11/05/2023 6:00 AM EDT 11/05/2023 6:06 AM EDT Narrative Resulting Agency Comment Spec In Lab Abran Reyna APRN CHEMISTRY ORDERABLES Performing Organization Address City/[facility]/ZIP Co de Phone Number [facility] [place] [address] * (ABNORMAL) POCT Glucose (11/05/2023 5:58 AM EDT) Glucose, POC 443(H) 65 - 199 mg/dL [facility] Comment: Supplemental ranges: <140 mg/dL before meals <180 mg/dL all other times of the day Blood 11/05/2023 5:58 AM EDT 11/05/2023 5:58 AM EDT Kiko Che MD POINT OF CARE TEST ORDERABLES Performing Organization Address [facility]/ZIP Co de Phone Number [facility] [place] [address] * (ABNORMAL) _Urinalysis with microscopic (11/05/2023 5:35 AM EDT) Glucose, Urine Dipstick >=1000(Criti sanjuana) Negative mg/dL [facility] Comment: Urinalysis result NOT critical without a combination of Glucose greater than or equal to 500 mg/dL AND Ketones greater than or equal to 80 mg/dL Protein, Urine Dipstick Negative Negative mg/dL [facility] Bilirubin, Urine Dipstick Negative Negative mg/dL [facility] Comment: Clinical correlation required for positive Urine Bilirubin results as false positive may occur with some drugs and drug related products. If a false positive is suspected a serum total bilirubin should be considered if clinically indicated. Urobilinogen, Urine Dipstick Normal Normal mg/dL [facility] pH, Urn (dipstick) 5.5 5.0 - 8.0 [facility] Blood, Urine Dipstick Negative Negative mg/dL [facility] Ketone, Urine Dipstick Negative Negative mg/dL [facility] Nitrite, Urine Dipstick Negative Negative [facility] Leukocytes, Urine Dipstick Small(A) Negative [facility] Appearance, Urine Dipstick Clear Clear [facility] Specific [place] Urine Automated 1.026 1.005 - 1.030 [facility] Color, Urine Dipstick Yellow Yellow [facility] RBC, Urine 2 0 - 4 /HPF [facility] WBC, Urine 92(H) 0 - 5 /HPF [facility] Bacteria, Urine Rare(A) None /HPF [facility] Hyaline Casts, Urine 4(H) 0 - 2 /LPF [facility] Cystine Crystal, Urine Positive(A) None /HPF [facility] Urine 11/05/2023 5:35 AM EDT 11/05/2023 6:07 AM EDT Narrative Resulting Agency Comment Spec In Lab Abran Reyna APRN URINE ORDERABLES [facility] [place] [address] * (ABNORMAL) POCT Glucose (11/05/2023 5:08 AM EDT) Glucose, POC 490(H) 65 - 199 mg/dL [facility] Comment: Supplemental ranges: <140 mg/dL before meals <180 mg/dL all other times of the day Blood 11/05/2023 5:08 AM EDT 11/05/2023 5:08 AM EDT Kiko Che MD POINT OF CARE TEST ORDERABLES [facility] [place] [address] * (ABNORMAL) POCT Glucose (11/05/2023 4:25 AM EDT) Pathologist [facility] Glucose, POC 532(Critic al) 65 - 199 mg/dL [facility] Comment: Supplemental ranges: <140 mg/dL before meals <180 mg/dL all other times of the day Blood 11/05/2023 4:25 AM EDT 11/05/2023 4:25 AM EDT Kiko Che MD POINT OF CARE TEST ORDERABLES Performing Organization Address [facility] Co de Phone Number [facility] [place] [address] * Respiratory Panel PCR (11/05/2023 4:20 AM EDT) [facility] Respiratory Panel Source INSTRUMENTATION TECHNOLOGIST Swab [facility] Respiratory Panel PCR Negative Negative [facility] Comment: Respiratory Panels are performed on the Vint, using multiplexed PCR nucleic acid detection. ??Negative results do not preclude respiratory infection and should not be used as the sole basis for diagnosis, treatment or other management decisions. Adenovirus Not Detected Not Detected [facility] Coronavirus HKU1 Not Detected Not Detected [facility] Coronavirus NL63 Not Detected Not Detected [facility] Coronavirus 229E Not Detected Not Detected [facility] Coronavirus OC43 Not Detected Not Detected [facility] SARS-CoV-2 Not Detected Not Detected [facility] Comment: Testing for SARS-CoV-2 (Severe acute respiratory syndrome coronavirus 2) to aid in the diagnosis of COVID-19 is performed using the Bio[employer] Respiratory Panel 2.1 (VMTurbo) as authorized by the FDA issued Emergency Use Authorization (EUA). This panel also tests for multiple other viral and bacterial pathogens. This assay is intended for In-vitro Diagnostic (IVD) use with nasopharyngeal swabs in viral transport media. The assay is performed based on the instructions for use and additional guidance provided by the FDA. Testing is performed in laboratories within the [facility], each of which is certified under the Clinical Laboratory Improvement Amendments of 1988 (CLIA), 42 U.S.C. section 263a, to perform high-complexity tests. Assay performance has been verified according to clinical laboratory regulatory requirements. The test result for SARS-CoV-2 provided above should be interpreted in combination with the clinical observation, patient history and epidemiological information. For testing of asymptomatic individuals, assay performance characteristics and clinical utility have not been evaluated. ??A result of Not Detected indicates that the viral RNA target is not present but does not preclude SARS-CoV-2 infection. False negative results may occur if a specimen is improperly collected, transported or handled; if amplification inhibitors are present; or if inadequate numbers of viral particles are present in the specimen. When a diagnostic test is negative, the possibility of a false negative result should be considered in the context of a patient's recent exposures and the presence of clinical signs and symptoms consistent with COVID-19. A result of Detected suggests a current or recent infection. Positive and negative predictive values for this test are dependent on disease prevalence. A result of Invalid indicates the inability to conclusively determine the presence or absence of SARS-CoV-2 RNA in the sample which can be due to a variety of factors. ??Collection of a new sample for repeat testing is recommended in the case of an invalid result. CDC COVID-19 criteria for testing on human specimens and clinical management guidance information are available at the CDC Coronavirus Disease 2019 (COVID-19) webpage under Information for Healthcare Professionals (https://www.cdc.gov/coronavirus/2019-ncov/hcp/index.html). Additional information about this and other EUA tests can be found in provider and patient fact sheets at the following FDA website: https://www.fda.gov/medical-devices/moopmwqskcy-rjtiwxb-5741-ahipk-58-cmhsgxecw- use-a nayqmdgluxfed-bblfaie-ngaftus/zuqmo-rbhtpchlwvf-ezds Human Metapneumovirus Not Detected Not Detected [facility] Human Rhinovirus/Enterov irus Not Detected Not Detected [facility] Influenza A Not Detected Not Detected [facility] Influenza B Not Detected Not Detected [facility] Parainfluenza 1 Not Detected Not Detected [facility] Parainfluenza 2 Not Detected Not Detected [facility] Parainfluenza 3 Not Detected Not Detected [facility] Parainfluenza 4 Not Detected Not Detected [facility] Respiratory Syncytial Virus Not Detected Not Detected [facility] Chlamydophila pneumoniae Not Detected Not Detected [facility] Mycoplasma pneumoniae Not Detected Not Detected [facility] Nasopharyngeal Swab 11/05/19 4:20 AM EDT 11/05/2023 5:06 AM EDT Narrative Resulting Agency Comment Spec In Lab Abran Reyna APRN MICROBIOLOGY - [place] [address] * Blood culture (11/05/2023 4:15 AM EDT) Blood Culture No growth at 5 days. [facility] Blood STRUCTURE OF LEFT FOREARM / Unknown 11/05/2023 4:15 AM EDT 11/05/2023 5:05 AM EDT Narrative Resulting Agency Comment Spec In Lab Abran Reyna APRN MICROBIOLOGY - BLOOD ORDERABLES Performing Organization Address City/[facility]/ZIP [place] [address] * Blood culture (11/05/2023 4:00 AM EDT) Blood Culture No growth at 5 days. [facility] Blood STRUCTURE OF LEFT UPPER LIMB / Unknown 11/05/2023 4:00 AM EDT 11/05/2023 5:03 AM EDT Narrative Resulting Agency Comment Spec In Lab Abran Reyna APRN MICROBIOLOGY - BLOOD ORDERABLES [place] [address] * XR Chest One View (11/05/2023 3:58 AM EDT) WORKSTATION ID [id number] RAD Anatomical Region Laterality Modality Chest N/A Digital Radiogra phy Impressions 11/05/2023 4:37 AM EDT Right IJ central venous catheter with tip projecting over the right atrium. I have personally reviewed the image(s) and the resident's interpretation and agree with the findings, Emeka Wolfe MD at 11/05/2023 4:37 AM Thank you for letting us participate in the care of this patient. ??If you are a health care provider and have any questions regarding this report, please contact the number below. ??For patients who have questions please contact the health adult day care worker that requested your imaging first. ? Narrative 11/05/2023 4:37 AM EDT EXAMINATION: XR CHEST ONE VIEW CLINICAL HISTORY: s/p transvenous pacer placement TECHNIQUE: 1 view of the chest COMPARISON: Radiographs of the chest 03/29/2014 FINDINGS: There is a right IJ central venous catheter with tip projecting over the right atrium. Defibrillation pad and EKG wires project over the chest. Low lung volumes with central pulmonary vascular congestion. No focal consolidation. No pneumothorax or pleural effusion. Cardiac mediastinal silhouette is within normal limits. Multiple mildly displaced age-indeterminate left rib fractures. Procedure Note Emeka Wolfe MD - 11/05/2023 EXAMINATION: XR CHEST ONE VIEW CLINICAL HISTORY: s/p transvenous pacer placement TECHNIQUE: 1 view of the chest COMPARISON: Radiographs of the chest 03/29/2014 FINDINGS: There is a right IJ central venous catheter with tip projecting over theright atrium. Defibrillation pad and EKG wires project over the chest. Low lung volumes with central pulmonary vascular congestion. No focal consolidation. No pneumothorax or pleural effusion. Cardiac mediastinal silhouette is within normal limits. Multiple mildly displacedage-indeterminate left rib fractures. IMPRESSION Right IJ central venous catheter with tip projecting over the rightatrium. I have personally reviewed the image(s) and the resident's interpretationand agree with the findings, Emeka Wolfe MD at 11/05/2023 4:37 AM Thank you for letting us participate in the care of this patient. If youare a health care provider and have any questions regarding this report,please contact the number below. For patients who have questions please contactthe health adult day care worker that requested your imaging first. Abran Reyna SHO IMG DX ORDERABLES * (ABNORMAL) BLOOD GAS 2 VENOUS (11/05/2023 3:39 AM EDT) pH, Venous 7.25(Criti sanjuana) 7.32 - 7.42 [facility] Comment:Noted by brass wind instruments tube bender. PCO2, Venous 40(L) 41 - 51 mmHg [facility] PO2, Venous 33 25 - 40 mmHg [facility] Bicarbonate, Venous 16.9 mmol/L [facility] Base Excess, Venous -10.4 mmol/L [facility] Hgb Blood Gas 10.9(L) 11.7 - 15.5 g/dL [facility] Oxyhemoglobin, Venous 51.9 % [facility] Carboxyhemoglob in, Venous 0.3 % [facility] Comment: Nonsmokers: 0.5-1.5% COHB Smokers: Variable, but usually less than 10% Toxic: 20-30% COHB Lethal: Greater than 60% COHB Methemoglobin, Venous 0.7 <=1.5 % [facility] Na Whole Blood 130(L) 135 - 145 mmol/L [facility] K Whole Blood 6.0(H) 3.5 - 5.0 mmol/L [facility] Comment: Please note: Patients with WBC >100,000 may have falsely elevated Potassium levels. Contact the Clinical Chemistry Laboratory if there are any questions. ICa Whole Blood 1.15 1.15 - 1.33 mmol/L [facility] Comment: Note: ??Total bilirubin higher than 20 mg/dL may lead to falsely low ionized calcium. CL Whole Blood 100 98 - 107 mmol/L [facility] Gluc Whole Bld 573(Critic al) 65 - 199 mg/dL [facility] Comment: Noted by brass wind instruments tube bender. Diabetes: >=200 mg/dL plus symptoms Lactate WB 5.2(Critic al) 0.5 - 2.2 mmol/L [facility] Comment:Noted by brass wind instruments tube bender. Flow, Jorge 6.0 LPM [facility] Blood Gas Source Venous [facility] Blood 11/05/2023 3:39 AM EDT 11/05/2023 3:39 AM EDT Kiko Che MD POINT OF CARE TEST ORDERABLES [facility] [place] [address] * Scan, Peripheral Blood (11/05/2023 3:35 AM EDT) Plat estimate Increased [facility] RBC Morphology Abnormal [facility] Hypochromia Slight [facility] Ovalocytes 1-5 /HPF [facility] Sidney Cells gtr than 10 /HPF [facility] Blood 11/05/2023 3:35 AM EDT 11/05/2023 3:59 AM EDT Narrative Resulting Agency Comment Spec In Lab Abran Reyna PSYCHOLOGICAL OPERATIONS SPECIALIST HEMATOLOGY ORDERABLE S [facility] [place] [address] * (ABNORMAL) Differential, Automated (11/05/2023 3:35 AM EDT) Neutrophil % 87.3 % [facility] Neutrophil Absolute 8.98(H) 1.70 - 6.10 x10(3)/mc L [facility] Lymph % 7.6 % [facility] Lymphocytes Abs 0.8(L) 0.9 - 3.2 x10(3)/mc L [facility] Monocyte % 3.6 % [facility] Monocyte Abs 0.4 0.3 - 0.9 x10(3)/mc L [facility] Eos % 0.1 % [facility] Eosinophils Abs 0.0 0.0 - 0.4 x10(3)/mc L [facility] Basophil % 0.4 % [facility] Baso Absolute 0.0 0.0 - 0.1 x10(3)/mc L [facility] Immature Gran % 1.00 % [facility] Comment: Immature granulocytes(IG's)percentage and absolute count will include metamyelocytes, myelocytes, and promyelocytes. Blood smears from CBCs yielding IG's will be scanned manually for concordance. If this scan disagrees with the automated IG or if promyelocytes are noted, a manual differential will be performed. Immature Gran Absolute 0.10(H) 0.00 - 0.04 x10(3)/mc L [facility] Blood 11/05/2023 3:35 AM EDT 11/05/2023 3:59 AM EDT Narrative Resulting Agency Comment Spec In Lab Abran Reyna APRN HEMATOLOGY ORDERABLE S Performing Organization Address City/[facility]/ZIP Co de Phone Number [facility] [place] [address] * (ABNORMAL) Hemogram (11/05/2023 3:35 AM EDT) White Blood Cell 10.3(H) 4.0 - 9.5 x10(3)/mc L [facility] Red Blood Cell 4.09 4.00 - 5.21 x10(6)/mc L [facility] Hemoglobin 9.7(L) 11.7 - 15.5 g/dL [facility] Hematocrit 32.4(L) 35.7 - 45.8 % [facility] Mean Cell Volume 79.2(L) 82.6 - 94.4 fL [facility] Mean Cell Hemoglobin 23.7(L) 27.1 - 32.0 pg [facility] Mean Cell Hemoglobin Concentration 29.9(L) 31.7 - 35.0 g/dL [facility] Platelet 428(H) 145 - 357 x10(3)/mc L [facility] RDW Standard Deviation 54.1(H) 37.0 - 46.0 fL [facility] RDW coefficient of variation 18.8(H) 11.5 - 14.1 % [facility] Mean Platelet Volume 10.3 7.6 - 12.9 fL [facility] NRBC% auto 0.0 % [facility] NRBC Absolute 0.000 0.000 - 0.000 x10(3)/ L [facility] Blood 11/05/2023 3:35 AM EDT 11/05/2023 3:59 AM EDT Narrative Resulting Agency Comment Spec In Lab Abran Reyna APRN HEMATOLOGY ORDERABLE S [facility] [place] [address] * (ABNORMAL) Osmolality (11/05/2023 3:35 AM EDT) Osmolality 315(H) 275 - 295 mOsm/kg [facility] Blood 11/05/2023 3:35 AM EDT 11/05/2023 3:58 AM EDT Narrative Resulting Agency Comment Spec In Lab Abran Reyna PSYCHOLOGICAL OPERATIONS SPECIALIST CHEMISTRY ORDERABLES Performing Organization Address City/[facility]/ZIP Co de Phone Number [facility] [place] [address] * (ABNORMAL) Troponin (11/05/2023 3:35 AM EDT) Troponin-T, High Sensitivity 34(H) <=14 ng/L [facility] Comment: This patient's troponin T concentration was determined using the Michelle 5th Generation troponin T assay. The 99th percentile for Troponin T for this test is 14 ng/L for females, and 22 ng/L for males. According to the fourth universal definition of myocardial infarction, the term acute myocardial infarction should be used when there is acute myocardial injury with clinical evidence of acute myocardial ischemia and with detection of a rise and/or fall of cardiac troponin values with at least one value above the 99th percentile and at least one of the following: - Symptoms of myocardial ischemia; - New ischemic ECG changes; - Development of pathological Q waves; - Imaging evidence of new loss of viable myocardium or new regional wall motion abnormality in a pattern consistent with an ischemic etiology; - Identification of a coronary thrombus by angiography or autopsy (not for type 2 or 3 MIs) Serial measurement of troponin and the change in troponin concentration over time (delta) is crucial for the diagnosis of acute myocardial infarction. Guidance on the interpretation of the new 5th Generation Troponin T values and the delta troponin value can be found in the [facility] Test Catalog Troponin - [facility] Test Catalog Reference: Fourth [place] Definition of Myocardial Infarction. Journal of the [place] [employer] 2018;72:9673-0489 Blood 11/05/2023 3:35 AM EDT 11/05/2023 3:58 AM EDT Narrative Resulting Agency Comment Spec In Lab Abran Reyna PSYCHOLOGICAL OPERATIONS SPECIALIST CHEMISTRY ORDERABLES [facility] [place] [address] * CK (11/05/2023 3:35 AM EDT) Pathologist [facility] Creatine Kinase 90 0 - 160 unit/L [facility] Blood 11/05/2023 3:35 AM EDT 11/05/2023 3:58 AM EDT Narrative Resulting Agency Comment Spec In Lab Abran Reyna APRN CHEMISTRY ORDERABLES Performing Organization Address [facility] de Phone Number [facility] [place] [address] * (ABNORMAL) Beta Hydroxybutyrate (11/05/2023 3:35 AM EDT) [facility] Beta-hydroxybuturat e 0.45(H) 0.00 - 0.30 mmol/L [facility] Comment: This test has not been cleared by the [place] FDA. Performance characteristics of this test were determined by [facility] in accordance with CLIA requirements. This laboratory is qualified under CLIA to perform high-complexity testing. Blood 11/05/2023 3:35 AM EDT 11/05/2023 3:58 AM EDT Narrative Resulting Agency Comment Spec In Lab Abran Reyna PSYCHOLOGICAL OPERATIONS SPECIALIST CHEMISTRY ORDERABLES Performing Organization Address [facility] de Phone Number [facility] [place] [address] * (ABNORMAL) Hepatic Function Panel (11/05/2023 3:35 AM EDT) Pathologist [facility] Protein, Total 6.6 6.1 - 8.0 g/dL [facility] Albumin 3.7 3.2 - 5.2 g/dL [facility] Aspartate Aminotransferase 268(H) 0 - 30 unit/L [facility] Alanine Aminotransferase 174(H) 0 - 30 unit/L [facility] Alkaline Phosphatase 119(H) 35 - 105 unit/L [facility] Bilirubin, Total 0.3 0.2 - 1.3 mg/dL [facility] Bilirubin, Direct 0.2 0.0 - 0.3 mg/dL [facility] Blood 11/05/2023 3:35 AM EDT 11/05/2023 3:59 AM EDT Narrative Resulting Agency Comment Spec In Lab Abran Reyna PSYCHOLOGICAL OPERATIONS SPECIALIST CHEMISTRY ORDERABLES [facility] [place] [address] * Phosphorus (11/05/2023 3:35 AM EDT) Phosphorus 4.0 2.5 - 4.5 mg/dL [facility] Blood 11/05/2023 3:35 AM EDT 11/05/2023 3:59 AM EDT Narrative Resulting Agency Comment Spec In Lab Abran Reyna PSYCHOLOGICAL OPERATIONS SPECIALIST CHEMISTRY ORDERABLES Performing Organization Address City/[facility]/ZIP Co de Phone Number [facility] [place] [address] * (ABNORMAL) Magnesium (11/05/2023 3:35 AM EDT) Magnesium 0.62(L) 0.69 - 1.07 mmol/L [facility] Blood 11/05/2023 3:35 AM EDT 11/05/2023 3:59 AM EDT Narrative Resulting Agency Comment Spec In Lab Abran Reyna PSYCHOLOGICAL OPERATIONS SPECIALIST CHEMISTRY ORDERABLES Performing Organization Address City/[facility]/ZIP Co de Phone Number [facility] [place] [address] * (ABNORMAL) Basic Metabolic Panel (non-fasting) (11/05/2023 3:35 AM EDT) Glucose 574(Criti sanjuana) 65 - 199 mg/dL [facility] Comment: called by HADLEY/read back by Maribel Jones / 11/05/23 0456 Diabetes: >=200 mg/dL plus symptoms Blood Urea Nitrogen 35(H) 8 - 18 mg/dL [facility] Creatinine 1.41(H) 0.70 - 1.20 mg/dL [facility] Sodium 130(L) 135 - 145 mmol/L [facility] Potassium 6.2(Criti sanjuana) 3.5 - 5.0 mmol/L [facility] Comment: called by [place] /read back by maribel Jones / 11/05/23 0456 Please note: ??Patients with WBC >100,000 may have falsely elevated Potassium levels. ??For accurate Potassium quantification in these patients send serum separator tube (gold top) for subsequent determinations. ??Contact the Clinical Chemistry Laboratory if there are any questions. Chloride 99 98 - 107 mmol/L [facility] Carbon Dioxide 16(L) 22 - 31 mmol/L [facility] Anion Gap 15 5 - 15 mmol/L [facility] Calcium 8.6 8.5 - 10.5 mg/dL [facility] Est Glomerular Filtration Rate 39(L) >=60 mL/min/1. 73 m?? [facility] Comment: This patient's estimated GFR was [...] and symptoms in addition to eGFR. Blood 11/05/2023 3:35 AM EDT 11/05/2023 3:59 AM EDT Narrative Resulting Agency Comment Spec In Lab Abran Reyna APRN CHEMISTRY ORDERABLES [facility] [place] [address] * APTT (11/05/2023 3:35 AM EDT) Partial Thromboplastin Time 37 25 - 37 sec [facility] Comment: The PTT is NOT appropriate for heparin monitoring. Use the Anti-Xa level for heparin monitoring (HEP UFH) or LMWH monitoring (HEP LMW). A PTT less than 37 seconds generally indicates adequate hemostasis. Blood 11/05/2023 3:35 AM EDT 11/05/2023 3:59 AM EDT Narrative Resulting Agency Comment Spec In Lab Abran Reyna SHO HEMATOLOGY ORDERABLE S Performing Organization Address [facility] Co de Phone Number [facility] [place] [address] * (ABNORMAL) Prothrombin Time (11/05/2023 3:35 AM EDT) Prothrombin Time 18.9(H) 9.4 - 12.5 sec [facility] International Normalization Ratio 1.7 [facility] Comment: An INR <2.0 indicates adequate procoagulant activity for hemostasis in most patients without underlying bleeding disorders, though the INR may not adequately reflect hemostatic capacity in patients with liver disease and synthetic impairment. The recommended target INR range for therapeutic anticoagulation is 2.0 ? 3.0 for most applications, though lower and higher ranges may be appropriate depending on clinical circumstances. Blood 11/05/2023 3:35 AM EDT 11/05/2023 3:59 AM EDT Narrative Resulting Agency Comment Spec In Lab Abran Reyna APRN HEMATOLOGY ORDERABLE S Performing Organization Address City/[facility]/ZIP Co de Phone Number [facility] [place] [address] * (ABNORMAL) POCT Glucose (11/05/2023 3:30 AM EDT) Glucose, POC 508(Critic al) 65 - 199 mg/dL [facility] Comment: Supplemental ranges: <140 mg/dL before meals <180 mg/dL all other times of the day Blood 11/05/2023 3:30 AM EDT 11/05/2023 3:30 AM EDT Kiko Che MD POINT OF CARE TEST ORDERABLES Performing Organization Address [facility] Co de Phone Number [facility] [place] [address] * EKG 12 Lead (11/05/2023 3:10 AM EDT) Ventricular rate 92 BPM MUSE SYSTEM QRS Duration 74 ms MUSE SYSTEM Q-T Interval 398 ms MUSE SYSTEM QTC Calculated (Bezet) 492 ms MUSE SYSTEM Calculated R Kennett 84 degrees MUSE SYSTEM Calculated T Kennett 33 degrees MUSE SYSTEM INTERPRETATION Atrial fibrillation Low voltage QRS Prolonged QTc Abnormal ECG When compared with ECG of 11-JAN-2018 11:06, Nonspecific T wave abnormality no longer evident in Inferior leads Confirmed by fellow MD Johnson Augustin ([id number]) on 11/05/2023 2:07:55 PM Confirmed by MD Funk Danette ([id number]) on 11/06/2023 5:30:09 PM MUSE SYSTEM 11/05/2023 3:10 AM EDT 11/06/2023 5:30 PM EDT Joaquim Georges MD ECG ORDERABLES Performing Organization Address [facility] Co de Phone Number MUSE SYSTEM * (ABNORMAL) POCT Glucose (11/05/2023 3:03 AM EDT) Glucose, POC 496(H) 65 - 199 mg/dL [facility] Comment: Supplemental ranges: <140 mg/dL before meals <180 mg/dL all other times of the day Blood 11/05/2023 3:03 AM EDT 11/05/2023 3:03 AM EDT Kiko Che MD POINT OF CARE TEST ORDERABLES [facility] [address] [place] [address] documented in this encounter Visit Diagnoses Diagnosis DKA (diabetic ketoacidosis)- Primary Type II or unspecified type diabetes mellitus with ketoacidosis, not stated as uncontrolled Persistent atrial fibrillation Atrial fibrillation Wound of right lower extremity, initial encounter Chest discomfort Other chest pain Hyperlipidemia, unspecified hyperlipidemia type Atrial fibrillation Diabetic ketoacidosis with coma associated with other specified diabetes mellitus Permanent atrial fibrillation Atrial fibrillation documented in this encounter Admitting Diagnoses Diagnosis DKA (diabetic ketoacidosis) Type II or unspecified type diabetes mellitus with ketoacidosis, not stated as uncontrolled documented in this encounter Administered Medications Inactive Administered Medications - up to 3 most recent administrations Medication Order MAR Action Action Date Dose Rate Site acetaminophen (Tylenol) tablet 650 mg 650 mg, Oral, EVERY 4 HOURS PRN, Starting on 11/15/23 at 1444, Until 11/23/23 at 1655, Pain, Maximum dose of acetaminophen is 4,000 mg from all sources in 24 hours. When ordered for pain, acetaminophen should be given even when other ordered pain medications are indicated., Routine Given 11/22/2023 8:22 AM EDT 650 mg Given 11/20/2023 3:50 AM EDT 650 mg Given 11/17/2023 10:33 AM EDT 650 mg calcium carbonate (TUMS) chewable tablet 500-1,000 mg 500-1,000 mg, Oral, EVERY 4 HOURS PRN, Starting on 11/15/23 at 1619, Until Thu11/23/23 at 1655, Heartburn, Give 500 mg (1 tablet) for mild to moderate heartburn. Give 1,000 mg (2 tablets) for severe heartburn., Routine Given 11/17/2023 7:54 PM EDT 1,000 mg Given 11/15/2023 8:57 PM EDT 1,000 mg Given 11/15/2023 4:46 PM EDT 1,000 mg cefTRIAXone (Rocephin) 2 g vial attach to sodium chloride 0.9% 50 mL Mini-Bag Plus 2 g, Intravenous, EVERY 24 HOURS, 5 doses, First dose on Cathy 11/05/23 at 0600, Last dose on 11/09/23 at 0600, Administer over 30 Minutes, Indication for (Active or Suspected): Bacteremia/Sepsis New Bag 11/09/2023 6:03 AM EDT 2 g 100 mL/hr New Bag 11/08/2023 6:26 AM EDT 2 g 100 mL/hr New Bag 11/07/2023 6:14 AM EDT 2 g 100 mL/hr cyanocobalamin (Vitamin B-12) (Vitamin B-12) tablet 1,000 mcg 1,000 mcg, Oral, DAILY, First dose on Thu11/10/23 at 1000, Until Discontinued, Routine Given 11/23/2023 8:23 AM EDT 1,000 mcg Given 11/22/2023 8:22 AM EDT 1,000 mcg Given 11/21/2023 9:45 AM EDT 1,000 mcg dextrose 10% infusion 250 mL, at 1,000 mL/hr, Intravenous, EVERY 15 MIN PRN, Starting on Thu11/11/23 at 2041, Until Thu11/23/23 at 1655, For BG 50-70 mg/dL: Oral treatment preferred: If able to drink, give 120 mL juice or regular (not diet) soda OR if NPO, give 15 gram glucose 40% oral gel massaged into buccal mucosa OR if unconscious or uncooperative, give 25 gram (250 mL) dextrose 10% IV over 15 minutes per protocol OR, if no IV access, 1 mg glucagon IM. For BG less than 50 mg/dL: Oral treatment preferred: If able to drink, give 240 mL juice or regular (not diet) soda OR if NPO, give 30 gram glucose 40% oral gel massaged in buccal mucosa OR if unconscious or uncooperative, give 25 gram (250 mL) dextrose 10% IV over 15 minutes per protocol OR, if no IV access, 1 mg glucagon IM. Recheck BG in 15 minutes. May repeat juice/soda, gel, dextrose or glucagon once per episode. Notify provider if hypoglycemia does not resolve after two treatments. Providers should consider the following: administering longer-acting treatments for the duration of active insulin or hypoglycemia agent for persistent hypoglycemia and re-evaluating active insulin orders before administering the next dose. glucagon (Glucagen) (1 mg/mL) injection solution 1 mg 1 mg, Intramuscular, EVERY 15 MIN PRN, Starting on Thu11/11/23 at 2041, Until Thu11/23/23 at 1655, Low blood sugar, For BG 50-70 mg/dL: Oral treatment preferred: If able to drink, give 120 mL juice or regular (not diet) soda OR if NPO, give 15 gram glucose 40% oral gel massaged into buccal mucosa OR if unconscious or uncooperative, give 25 gram (250 mL) dextrose 10% IV over 15 minutes per protocol OR, if no IV access, 1 mg glucagon IM. For BG less than 50 mg/dL: Oral treatment preferred: If able to drink, give 240 mL juice or regular (not diet) soda OR if NPO, give 30 gram glucose 40% oral gel massaged in buccal mucosa OR if unconscious or uncooperative, give 25 gram (250 mL) dextrose 10% IV over 15 minutes per protocol OR, if no IV access, 1 mg glucagon IM. Recheck BG in 15 minutes. May repeat juice/soda, gel, dextrose or glucagon once per episode. Notify provider if hypoglycemia does not resolve after two treatments. Providers should consider the following: administering longer-acting treatments for the duration of active insulin or hypoglycemia agent for persistent hypoglycemia and re-evaluating active insulin orders before administering the next dose. , Routine glucose (Glutose) 40% oral geL 15-30 g of glucose, Buccal, EVERY 15 MIN PRN, Starting on Thu11/11/23 at 204, Until Thu11/23/23 at 1655, Low blood sugar, For BG 50-70 mg/dL: Oral treatment preferred: If able to drink, give 120 mL juice or regular (not diet) soda OR if NPO, give 15 gram glucose 40% oral gel massaged into buccal mucosa OR if unconscious or uncooperative, give 25 gram (250 mL) dextrose 10% IV over 15 minutes per protocol OR, if no IV access, 1 mg glucagon IM. For BG less than 50 mg/dL: Oral treatment preferred: If able to drink, give 240 mL juice or regular (not diet) soda OR if NPO, give 30 gram glucose 40% oral gel massaged in buccal mucosa OR if unconscious or uncooperative, give 25 gram (250 mL) dextrose 10% IV over 15 minutes per protocol OR, if no IV access, 1 mg glucagon IM. Recheck BG in 15 minutes. May repeat juice/soda, gel, dextrose or glucagon once per episode. Notify provider if hypoglycemia does not resolve after two treatments. Providers should consider the following: administering longer-acting treatments for the duration of active insulin or hypoglycemia agent for persistent hypoglycemia and re-evaluating active insulin orders before administering the next dose. 1 tube of Glutose-15 contains 15 grams of glucose (net weight of tube = 37.5 grams.), Routine hydrALAZINE (Apresoline) tablet 25 mg 25 mg, Oral, ONCE, 1 dose, On Thu11/15/23 at 2100, Take with Food, Routine Given 11/15/2023 8:58 PM EDT 25 mg insulin glargine-ygfn (Semglee) (100 unit/mL) subcutaneous injection vial 23 Units 23 Units, Subcutaneous, DAILY, First dose on Thu11/06/23 at 1000, Until Discontinued, Routine Given 11/09/2023 7:52 AM EDT 23 Units Given 11/08/2023 8:53 AM EDT 23 Units Given 11/07/2023 8:36 AM EDT 23 Units insulin glargine-ygfn (Semglee) (100 unit/mL) subcutaneous injection vial 26 Units 26 Units, Subcutaneous, DAILY, First dose (after last modification) on Thu11/10/23 at 0900, Until Discontinued, Routine Given 11/10/2023 8:26 AM EDT 26 Units insulin glargine-ygfn (Semglee) (100 unit/mL) subcutaneous injection vial 30 Units 30 Units, Subcutaneous, DAILY, First dose (after last modification) on Thu11/11/23 at 0900, Until Discontinued, Routine Given 11/11/2023 8:18 AM EDT 30 Units insulin glargine-ygfn (Semglee) (100 unit/mL) subcutaneous injection vial 34 Units 34 Units, Subcutaneous, DAILY, First dose (after last modification) on Thu11/21/23 at 0900, Until Discontinued, Routine Given 11/23/2023 8:26 AM EDT 34 Units Given 11/22/2023 8:26 AM EDT 34 Units Given 11/21/2023 9:45 AM EDT 34 Units insulin glargine-ygfn (Semglee) (100 unit/mL) subcutaneous injection vial 36 Units 36 Units, Subcutaneous, DAILY, First dose (after last modification) on Thu11/19/23 at 0900, Until Discontinued, Routine Given 11/20/2023 9:44 AM EDT 36 Units Given 11/19/2023 8:47 AM EDT 36 Units insulin glargine-ygfn (Semglee) (100 unit/mL) subcutaneous injection vial 40 Units 40 Units, Subcutaneous, DAILY, First dose (after last modification) on Thu11/12/23 at 0900, Until Discontinued, Routine Given 11/12/2023 8:30 AM EDT 40 Units insulin glargine-ygfn (Semglee) (100 unit/mL) subcutaneous injection vial 40 Units 40 Units, Subcutaneous, DAILY, First dose (after last modification) on Thu11/17/23 at 0900, Until Discontinued, Routine Given 11/18/2023 8:34 AM EDT 40 Units Given 11/17/2023 9:17 AM EDT 40 Units insulin glargine-ygfn (Semglee) (100 unit/mL) subcutaneous injection vial 48 Units 48 Units, Subcutaneous, DAILY, First dose (after last modification) on Thu11/16/23 at 0900, Until Discontinued, Routine Given 11/16/2023 8:58 AM EDT 48 Units insulin glargine-ygfn (Semglee) (100 unit/mL) subcutaneous injection vial 58 Units 58 Units, Subcutaneous, DAILY, First dose (after last modification) on Thu11/13/23 at 0900, Until Discontinued, Routine Given 11/15/2023 8:27 AM EDT 58 Units Given 11/14/2023 9:16 AM EDT 58 Units Given 11/13/2023 9:39 AM EDT 58 Units insulin lispro (HumaLOG;Admelog) (100 unit/mL) subcutaneous injection vial 0-10 Units 0-10 Units, Subcutaneous, 3 TIMES DAILY WITH MEALS, First dose (after last modification) on Thu11/09/23 at 1700, Until Discontinued, MEAL ASSOCIATED Give 1 unit for every 8 grams carbohydrate. Hold if not eating or if BG less than 70 mg/dL. , Routine Given 11/10/2023 6:03 PM EDT 9 Units Given 11/10/2023 1:18 PM EDT 7 Units Given 11/10/2023 8:24 AM EDT 8 Units insulin lispro (HumaLOG;Admelog) (100 unit/mL) subcutaneous injection vial 0-15 Units 0-15 Units, Subcutaneous, 3 TIMES DAILY WITH MEALS, First dose (after last modification) on Thu11/11/23 at 0800, Until Discontinued, MEAL ASSOCIATED Give 1 unit for every 6 grams carbohydrate. Hold if not eating or if BG less than 70 mg/dL. , Routine Given 11/11/2023 5:33 PM EDT 13 Units Given 11/11/2023 12:54 PM EDT 9 Units Given 11/11/2023 10:13 AM EDT 7 Units insulin lispro (HumaLOG;Admelog) (100 unit/mL) subcutaneous injection vial 0-15 Units 0-15 Units, Subcutaneous, 3 TIMES DAILY WITH MEALS, First dose (after last modification) on Thu11/12/23 at 0800, Until Discontinued, MEAL ASSOCIATED Give 1 unit for every 6 grams carbohydrate. Hold if not eating or if BG less than 70 mg/dL. , Routine Given 11/12/2023 12:28 PM EDT 10 Units Given 11/12/2023 8:20 AM EDT 10 Units insulin lispro (HumaLOG;Admelog) (100 unit/mL) subcutaneous injection vial 0-20 Units 0-20 Units, Subcutaneous, 3 TIMES DAILY WITH MEALS, First dose (after last modification) on Thu11/12/23 at 1700, Until Discontinued, MEAL ASSOCIATED Give 1 unit for every 5 grams carbohydrate. Hold if not eating or if BG less than 70 mg/dL. , Routine Given 11/12/2023 5:59 PM EDT 11 Units insulin lispro (HumaLOG;Admelog) (100 unit/mL) subcutaneous injection vial 0-20 Units 0-20 Units, Subcutaneous, 3 TIMES DAILY WITH MEALS, First dose (after last modification) on Thu11/17/23 at 1700, Until Discontinued, MEAL ASSOCIATED Give 1 unit for every 6 grams carbohydrate. Hold if not eating or if BG less than 70 mg/dL. , Routine Given 11/23/2023 12:30 PM EDT 6 Units Given 11/23/2023 8:26 AM EDT 10 Units Given 11/22/2023 6:30 PM EDT 11 Units insulin lispro (HumaLOG;Admelog) (100 unit/mL) subcutaneous injection vial 0-25 Units 0-25 Units, Subcutaneous, 3 TIMES DAILY PRN, Starting on Thu11/13/23 at 0724, Until Thu11/23/23 at 1655, with snacks, SNACK ASSOCIATED Give 1 unit for every 6 grams carbohydrate. Hold if not eating or if BG less than 70 mg/dL., Routine Given 11/21/2023 6:22 PM EDT 15 Uni ts insulin lispro (HumaLOG;Admelog) (100 unit/mL) subcutaneous injection vial 0-25 Units 0-25 Units, Subcutaneous, 3 TIMES DAILY WITH MEALS, First dose (after last modification) on Thu11/13/23 at 0815, Until Discontinued, MEAL ASSOCIATED Give 1 unit for every 5 grams carbohydrate. Hold if not eating or if BG less than 70 mg/dL. , Routine Given 11/17/2023 12:00 PM EDT 10 Units Given 11/17/2023 9:16 AM EDT 5 Units Given 11/16/2023 6:27 PM EDT 3 Units insulin lispro (HumaLOG;Admelog) (100 unit/mL) subcutaneous injection vial 0-8 Units 0-8 Units, Subcutaneous, 3 TIMES DAILY WITH MEALS, First dose on Thu11/05/23 at 1300, Until Discontinued, MEAL ASSOCIATED Give 1 unit for every 10 grams carbohydrate. Hold if not eating or if BG less than 70 mg/dL. , Routine Given 11/05/2023 6:44 PM EDT 6 Units Given 11/05/2023 2:55 PM EDT 0 Units insulin lispro (HumaLOG;Admelog) (100 unit/mL) subcutaneous injection vial 0-8 Units 0-8 Units, Subcutaneous, 3 TIMES DAILY WITH MEALS, First dose on Thu11/06/23 at 0800, Until Discontinued, MEAL ASSOCIATED Give 1 unit for every 10 grams carbohydrate. Hold if not eating or if BG less than 70 mg/dL. , Routine Given 11/09/2023 12:16 PM EDT 3 Units Given 11/09/2023 7:51 AM EDT 5 Units Given 11/08/2023 6:04 PM EDT 7 Units insulin lispro (HumaLOG;Admelog) (100 unit/mL) subcutaneous injection vial 1-6 Units 1-6 Units, Subcutaneous, EVERY 4 HOURS SCHEDULED, First dose (after last modification) on Thu11/06/23 at 1200, Until Discontinued, CORRECTION BOLUS [1-5 Units] Custom Sliding Scale (BG in mg/dL): Correction factor 30 (1 unit of insulin is expected to drop the glucose 30 mg/dL) BG 160 - 190 Give 1 units BG 191 - 220 Give 2 units BG 221 - 250 Give 3 units BG 251 - 280 Give 4 units BG 281 - 310 Give 5 units BG greater than 310, give 6 units and recheck BG in 2 hours. If recheck BG remains GREATER THAN 240, GIVE 3 units & call for new insulin orders. If recheck BG is less than 240 after two hours, give no insulin and resume prior schedule. DO NOT hold if NPO, unless specifically directed to do so by written order. Per Blood Glucose Monitoring Policy, re-check a BG of > 240 mg/dL in 2 hours. , Routine Given 11/07/2023 7:29 PM EDT 1 Units Given 11/07/2023 3:43 PM EDT 1 Units Given 11/07/2023 11:47 AM EDT 1 Units insulin lispro (HumaLOG;Admelog) (100 unit/mL) subcutaneous injection vial 1-6 Units 1-6 Units, Subcutaneous, 3 TIMES DAILY BEFORE MEALS, First dose on Thu11/08/23 at 1130, Until Discontinued, CORRECTION BOLUS [1-6 Units] Moderate Sliding Scale (BG in mg/dL): Correction factor 20 (1 unit of insulin is expected to drop the glucose 20 mg/dL) BG 140 - 160 Give 1 unit BG 161 - 180 Give 2 units BG 181 - 200 Give 3 units BG 201 - 220 Give 4 units BG 221 - 240 Give 5 units BG greater than 240, give 6 units and recheck BG in 2 hours. - If recheck BG is LESS than 240, give no insulin and resume schedule. - If recheck BG is GREATER than or EQUAL to 240, give 6 units and repeat BG in 2 hours & call for new insulin orders. DO NOT hold if NPO, unless specifically told to do so. ?? Per Inpatient Subcutaneous Insulin Policy, recheck a BG of greater than 240 mg/dL in 2 hours., Routine Given 11/08/2023 4:09 PM EDT 5 Units Given 11/08/2023 12:23 PM EDT 5 Units insulin lispro (HumaLOG;Admelog) (100 unit/mL) subcutaneous injection vial 1-6 Units 1-6 Units, Subcutaneous, EVERY 4 HOURS SCHEDULED, First dose on Thu11/08/23 at 2230, Until Discontinued, CORRECTION BOLUS [1-6 Units] Moderate Sliding Scale (BG in mg/dL): Correction factor 20 (1 unit of insulin is expected to drop the glucose 20 mg/dL) BG 140 - 160 Give 1 unit BG 161 - 180 Give 2 units BG 181 - 200 Give 3 units BG 201 - 220 Give 4 units BG 221 - 240 Give 5 units BG greater than 240, give 6 units and recheck BG in 2 hours. - If recheck BG is LESS than 240, give no insulin and resume schedule. - If recheck BG is GREATER than or EQUAL to 240, give 6 units and repeat BG in 2 hours (no more than 3 times) & call for new insulin orders. DO NOT hold if NPO, unless specifically directed to do so by written order. ?? Per Inpatient Subcutaneous Insulin Policy, recheck a BG of greater than 240 mg/dL in 2 hours., Routine Given 11/11/2023 8:12 PM EDT 6 Units Given 11/11/2023 6:29 PM EDT 6 Units Given 11/11/2023 4:19 PM EDT 6 Units insulin lispro (HumaLOG;Admelog) (100 unit/mL) subcutaneous injection vial 1-6 Units 1-6 Units, Subcutaneous, 3 TIMES DAILY BEFORE MEALS, First dose on Thu11/17/23 at 1245, Until Discontinued, CORRECTION BOLUS [1-6 Units] Moderate Sliding Scale (BG in mg/dL): Correction factor 20 (1 unit of insulin is expected to drop the glucose 20 mg/dL) BG 140 - 160 Give 1 unit BG 161 - 180 Give 2 units BG 181 - 200 Give 3 units BG 201 - 220 Give 4 units BG 221 - 240 Give 5 units BG greater than 240, give 6 units and recheck BG in 2 hours. - If recheck BG is LESS than 240, give no insulin and resume schedule. - If recheck BG is GREATER than or EQUAL to 240, give 6 units and repeat BG in 2 hours & call for new insulin orders. DO NOT hold if NPO, unless specifically told to do so. ?? Per Inpatient Subcutaneous Insulin Policy, recheck a BG of greater than 240 mg/dL in 2 hours., Routine Given 11/23/2023 11:24 AM EDT 3 Units Given 11/21/2023 4:56 PM EDT 3 Units Given 11/21/2023 12:09 PM EDT 6 Units insulin lispro (HumaLOG;Admelog) (100 unit/mL) subcutaneous injection vial 2-12 Units 2-12 Units, Subcutaneous, EVERY 4 HOURS SCHEDULED, First dose on Thu11/11/23 at 2130, Until Discontinued, CORRECTION BOLUS [2-12 Units] Resistant Sliding Scale (BG in mg/dL) Correction Factor 10 (1 unit of insulin is expected to drop the glucose 10 mg/dL) ?? BG 140 - 160 Give 2 units BG 161 - 180 Give 4 units BG 181 - 200 Give 6 units BG 201 - 220 Give 8 units BG 221 - 240 Give 10 units BG greater than 240, give 12 units and recheck BG in 2 hours. - If recheck BG is LESS than 240, give no insulin and resume schedule. - If recheck BG is GREATER than or EQUAL to 240, give 12 units and repeat BG in 2 hours (no more than 3 times) & call for new insulin orders. DO NOT hold if NPO, unless specifically directed to do so by written order. ?? Per Inpatient Subcutaneous Insulin Policy, recheck a BG of greater than 240 mg/dL in 2 hours, Routine Given 11/15/2023 12:28 PM EDT 12 Units Given 11/15/2023 10:33 AM EDT 12 Units Given 11/15/2023 8:26 AM EDT 12 Units insulin lispro (HumaLOG;Admelog) (100 unit/mL) subcutaneous injection vial 2-12 Units 2-12 Units, Subcutaneous, EVERY 4 HOURS SCHEDULED, First dose (after last modification) on Thu11/15/23 at 2000, Until Discontinued, CORRECTION BOLUS [2-12 Units] Resistant Sliding Scale (BG in mg/dL) Correction Factor 10 (1 unit of insulin is expected to drop the glucose 10 mg/dL) ?? BG 140 - 160 Give 2 units BG 161 - 180 Give 4 units BG 181 - 200 Give 6 units BG 201 - 220 Give 8 units BG 221 - 240 Give 10 units BG greater than 240, give 12 units and recheck BG in 2 hours. - If recheck BG is LESS than 240, give no insulin and resume schedule. - If recheck BG is GREATER than or EQUAL to 240, give 10 units and repeat BG in 2 hours (no more than 3 times) & call for new insulin orders. DO NOT hold if NPO, unless specifically directed to do so by written order. ?? Per Inpatient Subcutaneous Insulin Policy, recheck a BG of greater than 240 mg/dL in 2 hours, Routine Given 11/17/2023 11:46 AM EDT 12 Units Given 11/16/2023 11:32 AM EDT 10 Units Given 11/16/2023 12:35 AM EDT 12 Units insulin regular (Myxredlin) (1 unit/mL) bolus from infusion 0-16 Units 0-16 Units, Intravenous, PER INSULIN PROTOCOL, Starting on Cathy 11/05/23 at 0822, Until Cathy 11/05/23 at 1512, Per Protocol, BOLUS order. Type 2 Initial bolus 8 Units. Adjustment bolus per insulin infusion protocol: IV insulin Bolus scale: For blood glucose (BG) in mg/dL (250-299 = 8 units, 300-359 = 12 units, greater than 360 = 16 units), Routine Bolus from Bag 11/05/2023 8:32 AM EDT 8 Units insulin regular (Myxredlin) (1 unit/mL) bolus from infusion 8.8 Units 8.8 Units (rounded from 8.78 Units = 0.1 Units/kg ? 87.8 kg), Intravenous, ONCE PRN, 1 dose, Starting on Cathy 11/05/23 at 0434, Until Cathy 11/05/23 at 0521, Per Protocol, Hyperglycemia - see infusion admin instr, See insulin infusion admin instructions for bolus guidance., Routine Bolus from Bag 11/05/2023 5:21 AM EDT 8.8 Units insulin regular (Myxredlin) (1 unit/mL) in sodium chloride 0.9% 100 mL infusion 0-0.1 Units/kg/hr ? 87.8 kg (0-8.78 mL/hr, rounded to 0-8.8 mL/hr), Intravenous, CONTINUOUS, Starting on Cathy 11/05/23 at 0430, Until Cathy 11/05/23 at 0731, Initiate insulin infusion at 0.1 units/kg/hr (8.78 units per hr, max rate of 30 units per hr); Hold insulin drip if potassium level is less than 3.3 mMol/L. ?? If GLUCOSE level does not decrease by at least 50 mg/dL from the initial value after the first hour: - Administer bolus 0.1 unit/kg & document on Bolus Dose order. - Continue same infusion rate and follow IV fluids titration. ?? GLUCOSE GREATER THAN OR EQUAL TO 150 mg/dL: - Continue same infusion rate and follow IV fluids titration. ?? GLUCOSE 70 - 149 mg/dL: - DECREASE insulin infusion rate by 50% ONLY ONCE if not already done and follow IV fluids titration. - Notify team if continues to be LESS than 100 mg/dL consecutively x2 readings with the next POC for further adjustments ?? GLUCOSE LESS than 70 mg/dL: - Pause insulin. Treat Hypoglycemia. Recheck blood glucose in 20 minutes. - If glucose is GREATER than 70 mg/dL on Recheck AND anion gap greater than 12, Restart insulin at 50% of prior infusion rate. - Notify team if continues to be LESS than 70 mg/dL with the next POC for further adjustments. ?? GLUCOSE level LESS than 200 mg/dL and anion gap is LESS than 12 and/or BHOB LESS than 1 (RESOLUTION OF DKA) - Notify team to consider transition to basal-bolus insulin. - Discontinue insulin drip 2 hours after initiation of long acting insulin., Routine New Bag 11/05/2023 3:51 AM EDT 0.1 Units/kg/hr 8.8 mL/hr insulin regular (Myxredlin) (1 unit/mL) in sodium chloride 0.9% 100 mL infusion 0.5-16 Units/hr (0.5-16 mL/hr), Intravenous, CONTINUOUS, Starting on Cathy 11/05/23 at 0915, Until Cathy 11/05/23 at 1512, CHANGE BAG EVERY EVENING. Type 2 diabetes. Current blood glucose (BG) 240 - 299 Titration- aim for target range of 140 - 180 mg/dL. Check BG every hour unless otherwise indicated. [[ Initial bolus of 8 units, then begin continuous infusion at 5 units/hour. ]] If BG at the time the infusion is started outside of the CURRENT BLOOD GLUCOSE range above, contact MD for new starting rate/bolus order. When infusion is paused, turn it back on as soon as possible per protocol. If BG at the time the infusion is started is outside of the CURRENT BLOOD GLUCOSE range above, contact provider for new starting rate/bolus order. Current BG less than 80 - Stop insulin. If BG less than 70, treat per hypoglycemia protocol. Re-check BG in 30 minutes and as soon as BG is greater than 80, restart with rate 50% of previous rate. If infusion stopped after previous rate had been 0.5 unit/hour, recheck every hour and when BG greater than 100 and higher than last test restart at 0.5 unit/hour. IF INFUSION IS PAUSED, TURN IT BACK ON SOON POSSIBLE, PER PROTOCOL. Current BG 80 - 139 - If BG dropped 10 mg/dL or more since last test, decrease rate by 50% and re-check in 30 minutes. Otherwise, decrease rate by 0.5 units/hour. Current BG 140 - 180 - If BG dropped 50 mg/dL or more since last test, decrease rate by 1 unit/hour. Otherwise, maintain same rate. Current BG 181 - 220 - If BG is lower than last test, maintain same rate. Otherwise, increase rate by 0.5 units/hour. Current BG 221 - 250 - If BG dropped 30 mg/dL or more since last test, maintain same rate. Otherwise, increase rate by 1 unit/hour. Current BG greater than 250 - Increase rate by 1 unit/hour AND bolus with Regular insulin IV as per IV Bolus Scale. Re-check BG in 30 minutes. THE FIRST DOSE OF SC INSULIN OUGHT TO BE ADMINISTERED BEFORE DISCONTINUING THE INFUSION. AN OVERLAP OF 2-3 HOURS IS RECOMMENDED. Continue to monitor the BG hourly., Routine Rate/Dose Change 11/05/2023 1:03 PM EDT 0.75 Units/hr 0.8 mL/hr Rate/Dose Change 11/05/2023 12:15 PM EDT 1.5 Units/hr 1.5 mL/hr Rate/Dose Change 11/05/2023 11:41 AM EDT 2 Units/hr 2 mL/h r insulin regular (Myxredlin) (1 unit/mL) in sodium chloride 0.9% 100 mL infusion 0.5-16 Units/hr (0.5-16 mL/hr), Intravenous, CONTINUOUS, Starting on Cathy 11/05/23 at 1815, Until Thu11/06/23 at 0332, CHANGE BAG EVERY EVENING. Type 2 diabetes. Current blood glucose (BG) 140 - 179 Titration- aim for target range of 140 - 180 mg/dL. Check BG every hour unless otherwise indicated. [[ No initial bolus. Begin continuous infusion at 4 units/hour. ]] If BG at the time the infusion is started outside of the CURRENT BLOOD GLUCOSE range above, contact MD for new starting rate/bolus order. When infusion is paused, turn it back on as soon as possible per protocol. If BG at the time the infusion is started is outside of the CURRENT BLOOD GLUCOSE range above, contact provider for new starting rate/bolus order. Current BG less than 80 - Stop insulin. If BG less than 70, treat per hypoglycemia protocol. Re-check BG in 30 minutes and as soon as BG is greater than 80, restart with rate 50% of previous rate. If infusion stopped after previous rate had been 0.5 unit/hour, recheck every hour and when BG greater than 100 and higher than last test restart at 0.5 unit/hour. IF INFUSION IS PAUSED, TURN IT BACK ON SOON POSSIBLE, PER PROTOCOL. Current BG 80 - 139 - If BG dropped 10 mg/dL or more since last test, decrease rate by 50% and re-check in 30 minutes. Otherwise, decrease rate by 0.5 units/hour. Current BG 140 - 180 - If BG dropped 50 mg/dL or more since last test, decrease rate by 1 unit/hour. Otherwise, maintain same rate. Current BG 181 - 220 - If BG is lower than last test, maintain same rate. Otherwise, increase rate by 0.5 units/hour. Current BG 221 - 250 - If BG dropped 30 mg/dL or more since last test, maintain same rate. Otherwise, increase rate by 1 unit/hour. Current BG greater than 250 - Increase rate by 1 unit/hour AND bolus with Regular insulin IV as per IV Bolus Scale. Re-check BG in 30 minutes. THE FIRST DOSE OF SC INSULIN OUGHT TO BE ADMINISTERED BEFORE DISCONTINUING THE INFUSION. AN OVERLAP OF 2-3 HOURS IS RECOMMENDED. Continue to monitor the BG hourly., Routine Restarted 11/06/2023 2:12 AM EDT 0.5 Units/hr 0.5 mL/hr Rate/Dose Change 11/05/2023 11:44 PM EDT 1 Units/hr 1 mL/h r Rate/Dose Change 11/05/2023 11:04 PM EDT 2 Units/hr 2 mL/h r lactated ringers infusion 0-250 mL/hr, Intravenous, CONTINUOUS, Starting on Thu11/05/23 at 0445, Until Thu11/05/23 at 0731, There are two IV fluid orders for this patient. The TOTAL RATE for IV fluids combined is 250 mL/hr. If blood glucose is greater than 250: - Infuse LR at full rate of 250 mL/hr. AND - HOLD infusion of D10 + LR. If blood glucose is between 150 - 250: - Infuse LR at 125 mL/hr AND - Infuse D10 + LR at 125 mL/hr. If blood glucose is less than 150, - HOLD infusion of LR. AND - Infuse D10 + LR at full rate of 250 mL/hr. New Bag 11/05/2023 3:51 AM EDT 250 mL/hr 250 mL/hr lidocaine (Xylocaine) 1% (10 mg/mL) injection 3 mg 3 mg (0.3 mL), Subcutaneous, ONCE PRN, 1 dose, Starting on Thu11/05/23 at 0330, Until Thu11/23/23 at 1655, for discomfort with PIV insertion, Routine magnesium oxide (Mag-Ox) tablet 200 mg 200 mg, Oral, ONCE, 1 dose, On Thu11/13/23 at 1045, Routine Given 11/13/2023 11:36 AM EDT 200 mg magnesium oxide (Mag-Ox) tablet 400 mg 400 mg, Oral, ONCE, 1 dose, On Thu11/09/23 at 1030, Routine Given 11/09/2023 10:46 AM EDT 400 mg magnesium sulfate 2 g in sterile water 50 mL infusion 2 g, Intravenous, EVERY 2 HOURS, 2 doses, First dose on Thu11/05/23 at 0545, Last dose on Thu11/05/23 at 0745, Administer over 120 Minutes New Bag 11/05/2023 8:38 AM EDT 2 g 25 mL/hr New Bag 11/05/2023 6:23 AM EDT 2 g 25 mL/hr magnesium sulfate 2 g in sterile water 50 mL infusion 2 g, Intravenous, EVERY 2 HOURS, 2 doses, First dose on Thu11/07/23 at 0230, Last dose on Thu11/07/23 at 0430, Administer over 120 Minutes New Bag 11/07/2023 5:31 AM EDT 2 g 25 mL/hr New Bag 11/07/2023 3:25 AM EDT 2 g 25 mL/hr magnesium sulfate 2 g in sterile water 50 mL infusion 2 g, Intravenous, ONCE, 1 dose, On Thu11/10/23 at 0215, Administer over 120 Minutes New Bag 11/10/2023 2:15 AM EDT 2 g 25 mL/hr magnesium sulfate 2 g in sterile water 50 mL infusion 2 g, Intravenous, ONCE, 1 dose, On Thu11/14/23 at 1100, Administer over 120 Minutes New Bag 11/14/2023 12:04 PM EDT 2 g 25 mL/hr metFORMIN (Glucophage) tablet 1,000 mg 1,000 mg, Oral, 2 TIMES DAILY WITH MEALS, First dose (after last modification) on Thu11/22/23 at 1145, Until Discontinued, Routine Given 11/23/2023 8:23 AM EDT 1,000 mg Given 11/22/2023 1:16 PM EDT 1,000 mg metoprolol succinate XL (Toprol-XL) tablet 200 mg 200 mg, Oral, DAILY, First dose on Thu11/11/23 at 1200, Until Discontinued, DO NOT CRUSH OR OPEN, Routine Given 11/12/2023 8:29 AM EDT 200 mg Given 11/11/2023 11:53 AM EDT 200 mg metoprolol succinate XL (Toprol-XL) tablet 250 mg 250 mg, Oral, DAILY, First dose (after last modification) on Thu11/13/23 at 0900, Until Discontinued, DO NOT CRUSH OR OPEN, Routine Given 11/15/2023 8:18 AM EDT 250 mg Given 11/14/2023 9:07 AM EDT 250 mg Given 11/13/2023 9:30 AM EDT 250 mg metoprolol succinate XL (Toprol-XL) tablet 300 mg 300 mg, Oral, DAILY, First dose (after last modification) on Thu11/16/23 at 0900, Until Discontinued, DO NOT CRUSH OR OPEN, Routine Given 11/23/2023 8:23 AM EDT 300 mg Given 11/22/2023 8:22 AM EDT 300 mg Given 11/21/2023 9:45 AM EDT 300 mg metoproloL tartrate (Lopressor) tablet 12.5 mg 12.5 mg, Oral, EVERY 6 HOURS SCHEDULED, First dose on Thu11/05/23 at 1800, Until Discontinued, Routine Given 11/06/2023 11:15 AM EDT 12.5 mg Given 11/06/2023 6:16 AM EDT 12.5 mg Given 11/06/2023 12:47 AM EDT 12.5 mg metoproloL tartrate (Lopressor) tablet 25 mg 25 mg, Oral, EVERY 6 HOURS SCHEDULED, First dose (after last modification) on Thu11/06/23 at 1430, Until Discontinued, Routine Given 11/08/2023 12:22 PM EDT 25 mg Given 11/08/2023 6:26 AM EDT 25 mg Given 11/08/2023 12:19 AM EDT 25 mg metoproloL tartrate (Lopressor) tablet 37.5 mg 37.5 mg, Oral, EVERY 6 HOURS SCHEDULED, First dose (after last modification) on Thu11/08/23 at 1800, Until Discontinued, Routine Given 11/09/2023 6:03 AM EDT 37.5 mg Given 11/09/2023 12:01 AM EDT 37.5 mg Given 11/08/2023 5:27 PM EDT 37.5 mg metoprolol tartrate (Lopressor) tablet 50 mg 50 mg, Oral, EVERY 6 HOURS SCHEDULED, 8 doses, First dose (after last modification) on Thu11/09/23 at 1245, Last dose on Thu11/11/23 at 0600, Routine Given 11/11/2023 5:15 AM EDT 50 mg Given 11/10/2023 11:51 PM EDT 50 mg Given 11/10/2023 6:02 PM EDT 50 mg perflutren protein-A microsphers (Optison) (0.22 mg/mL) injection 0.5 mL 0.5 mL, Intravenous, ONCE PRN, 1 dose, Starting on Thu11/05/23 at 1022, Until Thu11/05/23 at 1022, for enhancement of sub-optimal echo images, Echo Lab (Intra-Procedure), Routine Given 11/05/2023 10:22 AM EDT 0.5 mLs rivaroxaban (Xarelto) tablet 15 mg 15 mg, Oral, DAILY WITH DINNER, First dose (after last modification) on Thu11/18/23 at 1700, Until Discontinued, Must be administered with food., Routine, rivaroxabain (Xarelto) Indication: Non-Valvular Atrial Fibrillation Given 11/18/2023 5:17 PM EDT 15 mg rivaroxaban (Xarelto) tablet 20 mg 20 mg, Oral, DAILY WITH DINNER, First dose on Thu11/05/23 at 1700, Until Discontinued, Must be administered with food., Routine, rivaroxabain (Xarelto) Indication: Non-Valvular Atrial Fibrillation Given 11/17/2023 4:36 PM EDT 20 mg Given 11/16/2023 5:37 PM EDT 20 mg Given 11/15/2023 6:05 PM EDT 20 mg rivaroxaban (Xarelto) tablet 20 mg 20 mg, Oral, DAILY WITH DINNER, First dose (after last modification) on Thu11/19/23 at 1700, Until Discontinued, Must be administered with food., Routine, rivaroxabain (Xarelto) Indication: Non-Valvular Atrial Fibrillation Given 11/22/2023 6:32 PM EDT 20 mg Given 11/21/2023 6:13 PM EDT 20 mg Given 11/20/2023 4:15 PM EDT 20 mg sodium chloride 0.9 % (flush) (BD PosiFlush Normal Saline 0.9) flush 5 mL 5 mL, Intravenous, 2 TIMES DAILY, First dose on Thu11/05/23 at 0900, Until Discontinued, Routine Given 11/23/2023 8:26 AM EDT 5 mLs Given 11/22/2023 9:26 PM EDT 5 mLs Given 11/22/2023 8:29 AM EDT 5 mLs sodium chloride 0.9 % (flush) (BD PosiFlush Normal Saline 0.9) flush 5 mL 5 mL, Intravenous, 2 TIMES DAILY, First dose on Thu11/05/23 at 0900, Until Discontinued, Routine Given 11/05/2023 8:38 AM EDT 5 mLs sodium chloride 0.9 % (flush) (BD PosiFlush Normal Saline 0.9) flush 5-20 mL 5-20 mL, Intravenous, EVERY 1 MIN PRN, Starting on Cathy 11/05/23 at 0330, Until 11/23/23 at 1655, flush, Flush pertains to all indwelling lines. Flush per protocol found in the job aid using the link provided on this medication record., Routine sodium chloride 0.9% infusion 75 mL/hr, Intravenous, CONTINUOUS, Starting on Thu11/13/23 at 1345, Until 11/14/23 at 0744 Rate/Dose Verify 11/14/2023 5:24 AM EDT 75 mL/hr 75 mL/hr Rate/Dose Verify 11/14/2023 3:04 AM EDT 75 mL/hr 75 mL/h r Rate/Dose Verify 11/14/2023 2:23 AM EDT 75 mL/hr 75 mL/h r sodium zirconium cyclosilicate (Lokelma) oral powder packet 10 g 10 g, Oral, DAILY, First dose on Cathy 11/05/23 at 0600, Until Discontinued, Empty entire contents of packet into cup containing at least 3 tablespoons (45 mL) or more of water. Stir well and have patient drink immediately. If powder remains, add water, stir and drink. Repeat until no powder remains. Avoid giving other oral medications 2 hours before or after sodium zirconium cyclosilicate., STAT Given 11/07/2023 7:41 AM EDT 10 g Given 11/06/2023 7:51 AM EDT 10 g Given 11/05/2023 6:16 AM EDT 10 g sodium zirconium cyclosilicate (Lokelma) oral powder packet 10 g 10 g, Oral, DAILY, First dose (after last reorder) on Thu11/08/23 at 0900, Until Discontinued, Empty entire contents of packet into cup containing at least 3 tablespoons (45 mL) or more of water. Stir well and have patient drink immediately. If powder remains, add water, stir and drink. Repeat until no powder remains. Avoid giving other oral medications 2 hours before or after sodium zirconium cyclosilicate., Routine Given 11/08/2023 8:55 AM EDT 10 g sodium zirconium cyclosilicate (Lokelma) oral powder packet 5 g 5 g, Oral, ONCE, 1 dose, On Cathy 11/12/23 at 1445, Empty entire contents of packet into cup containing at least 3 tablespoons (45 mL) or more of water. Stir well and have patient drink immediately. If powder remains, add water, stir and drink. Repeat until no powder remains. Avoid giving other oral medications 2 hours before or after sodium zirconium cyclosilicate., Routine Given 11/12/2023 2:19 PM EDT 5 g sodium zirconium cyclosilicate (Lokelma) oral powder packet 5 g 5 g, Oral, ONCE, 1 dose, On 11/13/23 at 1445, Empty entire contents of packet into cup containing at least 3 tablespoons (45 mL) or more of water. Stir well and have patient drink immediately. If powder remains, add water, stir and drink. Repeat until no powder remains. Avoid giving other oral medications 2 hours before or after sodium zirconium cyclosilicate., Routine Given 11/13/2023 3:45 PM EDT 5 g documented in this encounter Active and Recently Administered Medications Times are shown in EDT. Scheduled Medication Order 11/21/2023 11/22/2023 11/23/2023 cyanocobalamin (Vitamin B-12) (Vitamin B-12) tablet 1,000 mcg 1,000 mcg, Oral, DAILY, First dose on Thu11/10/23 at 1000, Until Discontinued, Routine 0945 (Given - Provider: Eliel Abreu RN) 08 (Given - Provider: Torsten Mendenhall RN) 0823 (Given - Provider: Artem Patel RN) insulin glargine-ygfn (Semglee) (100 unit/mL) subcutaneous injection vial 34 Units 34 Units, Subcutaneous, DAILY, First dose (after last modification) on Thu11/21/23 at 0900, Until Discontinued, Routine 0945 (Given - Provider: Eliel Abreu RN) 0826 (Given - Provider: Torsten Mendenhall RN) 0826 (Given - Provider: Artem Patel RN) insulin lispro (HumaLOG;Admelog) (100 unit/mL) subcutaneous injection vial 0-20 Units 0-20 Units, Subcutaneous, 3 TIMES DAILY WITH MEALS, First dose (after last modification) on Thu11/17/23 at 1700, Until Discontinued, MEAL ASSOCIATED Give 1 unit for every 6 grams carbohydrate. Hold if not eating or if BG less than 70 mg/dL. , Routine 0946 (Given - Provider: Eliel Abreu RN)1402 (Given - Provider: Eliel Abreu RN)1700 (Not Given - Provider: Eliel Abreu RN - Reason: Contraindicated) 0825 (Given - Provider: Torsten Mendenhall, KRIS)1316 (Given - Provider: Torsten Mendenhall, KRIS)1830 (Given - Provider: Torsten Mendenhall RN) 0826 (Given - Provider: Artem Patel, KRIS)1230 (Given - Provider: Artem Patel, KRIS) insulin lispro (HumaLOG;Admelog) (100 unit/mL) subcutaneous injection vial 1-6 Units(Linked Group 1) 1-6 Units, Subcutaneous, 3 TIMES DAILY BEFORE MEALS, First dose on Thu11/17/23 at 1245, Until Discontinued, CORRECTION BOLUS [1-6 Units] Moderate Sliding Scale (BG in mg/dL): Correction factor 20 (1 unit of insulin is expected to drop the glucose 20 mg/dL) BG 140 - 160 Give 1 unit BG 161 - 180 Give 2 units BG 181 - 200 Give 3 units BG 201 - 220 Give 4 units BG 221 - 240 Give 5 units BG greater than 240, give 6 units and recheck BG in 2 hours. - If recheck BG is LESS than 240, give no insulin and resume schedule. - If recheck BG is GREATER than or EQUAL to 240, give 6 units and repeat BG in 2 hours & call for new insulin orders. DO NOT hold if NPO, unless specifically told to do so. ?? Per Inpatient Subcutaneous Insulin Policy, recheck a BG of greater than 240 mg/dL in 2 hours., Routine 0730 (Not Given - Provider: Eliel Abreu RN - Reason: Order parameters not met)1209 (Given - Provider: Eliel Abreu RN)1656 (Given - Provider: Eliel Abreu RN) 0730 (Not Given - Provider: Torsten Mendenhall RN - Reason: Contraindicated)1130 (Not Given - Provider: Torsten Mendenhall RN - Reason: Contraindicated)1630 (Not Given - Provider: Torsten Mendenhall RN - Reason: Contraindicated) 0730 (Not Given - Provider: Artem Patel RN - Reason: Order parameters not met)1124 (Given - Provider: Artem Patel RN - Comment: 196) metFORMIN (Glucophage) tablet 1,000 mg 1,000 mg, Oral, 2 TIMES DAILY WITH MEALS, First dose (after last modification) on Thu11/22/23 at 1145, Until Discontinued, Routine 1316 (Given - Provider: Torsten Mendenhall RN)1700 (Hold - Provider: Torsten Mendenhall RN - Reason: Contraindicated) 0823 (Given - Provider: Artem Patel RN) metoprolol succinate XL (Toprol-XL) tablet 300 mg 300 mg, Oral, DAILY, First dose (after last modification) on Thu11/16/23 at 0900, Until Discontinued, DO NOT CRUSH OR OPEN, Routine 0945 (Given - Provider: Eliel Abreu RN) 0822 (Given - Provider: Torsten Mendenhall RN) 0823 (Given - Provider: Artem Patel RN) rivaroxaban (Xarelto) tablet 20 mg 20 mg, Oral, DAILY WITH DINNER, First dose (after last modification) on Cathy 11/19/23 at 1700, Until Discontinued, Must be administered with food., Routine, rivaroxabain (Xarelto) Indication: Non-Valvular Atrial Fibrillation 1812 (Given - Provider: Eliel Abreu RN) 183 (Given - Provider: Torsten Mendenhall RN) sodium chloride 0.9 % (flush) (BD PosiFlush Normal Saline 0.9) flush 5 mL 5 mL, Intravenous, 2 TIMES DAILY, First dose on Cathy 11/05/23 at 0900, Until Discontinued, Routine 0949 (Given - Provider: Eliel Abreu RN)194 (Given - Provider: Andrade Ramirez RN) 08 (Given - Provider: Torsten Mendenhall RN)212 (Given - Provider: Andrade Ramirez RN) 825 (Given - Provider: Artem Patel RN) PRN Medication Order 11/21/2023 11/22/2023 11/23/2023 acetaminophen (Tylenol) tablet 650 mg 650 mg, Oral, EVERY 4 HOURS PRN, Starting on 11/15/23 at 1444, Until Thu11/23/23 at 1655, Pain, Maximum dose of acetaminophen is 4,000 mg from all sources in 24 hours. When ordered for pain, acetaminophen should be given even when other ordered pain medications are indicated., Routine 821 (Given - Provider: Torsten Mendenhall RN) calcium carbonate (TUMS) chewable tablet 500-1,000 mg 500-1,000 mg, Oral, EVERY 4 HOURS PRN, Starting on 11/15/23 at 1619, Until 11/23/23 at 1655, Heartburn, Give 500 mg (1 tablet) for mild to moderate heartburn. Give 1,000 mg (2 tablets) for severe heartburn., Routine dextrose 10% infusion(Linked Group 2) 250 mL, at 1,000 mL/hr, Intravenous, EVERY 15 MIN PRN, Starting on 11/11/23 at 2042, Until Thu11/23/23 at 1655, For BG 50-70 mg/dL: Oral treatment preferred: If able to drink, give 120 mL juice or regular (not diet) soda OR if NPO, give 15 gram glucose 40% oral gel massaged into buccal mucosa OR if unconscious or uncooperative, give 25 gram (250 mL) dextrose 10% IV over 15 minutes per protocol OR, if no IV access, 1 mg glucagon IM. For BG less than 50 mg/dL: Oral treatment preferred: If able to drink, give 240 mL juice or regular (not diet) soda OR if NPO, give 30 gram glucose 40% oral gel massaged in buccal mucosa OR if unconscious or uncooperative, give 25 gram (250 mL) dextrose 10% IV over 15 minutes per protocol OR, if no IV access, 1 mg glucagon IM. Recheck BG in 15 minutes. May repeat juice/soda, gel, dextrose or glucagon once per episode. Notify provider if hypoglycemia does not resolve after two treatments. Providers should consider the following: administering longer-acting treatments for the duration of active insulin or hypoglycemia agent for persistent hypoglycemia and re-evaluating active insulin orders before administering the next dose. glucagon (Glucagen) (1 mg/mL) injection solution 1 mg(Linked Group 2) 1 mg, Intramuscular, EVERY 15 MIN PRN, Starting on Thu11/11/23 at 2041, Until Thu11/23/23 at 1655, Low blood sugar, For BG 50-70 mg/dL: Oral treatment preferred: If able to drink, give 120 mL juice or regular (not diet) soda OR if NPO, give 15 gram glucose 40% oral gel massaged into buccal mucosa OR if unconscious or uncooperative, give 25 gram (250 mL) dextrose 10% IV over 15 minutes per protocol OR, if no IV access, 1 mg glucagon IM. For BG less than 50 mg/dL: Oral treatment preferred: If able to drink, give 240 mL juice or regular (not diet) soda OR if NPO, give 30 gram glucose 40% oral gel massaged in buccal mucosa OR if unconscious or uncooperative, give 25 gram (250 mL) dextrose 10% IV over 15 minutes per protocol OR, if no IV access, 1 mg glucagon IM. Recheck BG in 15 minutes. May repeat juice/soda, gel, dextrose or glucagon once per episode. Notify provider if hypoglycemia does not resolve after two treatments. Providers should consider the following: administering longer-acting treatments for the duration of active insulin or hypoglycemia agent for persistent hypoglycemia and re-evaluating active insulin orders before administering the next dose. , Routine glucose (Glutose) 40% oral geL(Linked Group 2) 15-30 g of glucose, Buccal, EVERY 15 MIN PRN, Starting on Thu11/11/23 at 2041, Until Thu11/23/23 at 1655, Low blood sugar, For BG 50-70 mg/dL: Oral treatment preferred: If able to drink, give 120 mL juice or regular (not diet) soda OR if NPO, give 15 gram glucose 40% oral gel massaged into buccal mucosa OR if unconscious or uncooperative, give 25 gram (250 mL) dextrose 10% IV over 15 minutes per protocol OR, if no IV access, 1 mg glucagon IM. For BG less than 50 mg/dL: Oral treatment preferred: If able to drink, give 240 mL juice or regular (not diet) soda OR if NPO, give 30 gram glucose 40% oral gel massaged in buccal mucosa OR if unconscious or uncooperative, give 25 gram (250 mL) dextrose 10% IV over 15 minutes per protocol OR, if no IV access, 1 mg glucagon IM. Recheck BG in 15 minutes. May repeat juice/soda, gel, dextrose or glucagon once per episode. Notify provider if hypoglycemia does not resolve after two treatments. Providers should consider the following: administering longer-acting treatments for the duration of active insulin or hypoglycemia agent for persistent hypoglycemia and re-evaluating active insulin orders before administering the next dose. 1 tube of Glutose-15 contains 15 grams of glucose (net weight of tube = 37.5 grams.), Routine insulin lispro (HumaLOG;Admelog) (100 unit/mL) subcutaneous injection vial 0-25 Units 0-25 Units, Subcutaneous, 3 TIMES DAILY PRN, Starting on Thu11/13/23 at 0724, Until Thu11/23/23 at 1655, with snacks, SNACK [employer]IATED Give 1 unit for every 6 grams carbohydrate. Hold if not eating or if BG less than 70 mg/dL., Routine 1822 (Given - Provider: Eliel Abreu RN) lidocaine (Xylocaine) 1% (10 mg/mL) injection 3 mg 3 mg (0.3 mL), Subcutaneous, ONCE PRN, 1 dose, Starting on Thu11/05/23 at 0330, Until Thu11/23/23 at 1655, for discomfort with PIV insertion, Routine sodium chloride 0.9 % (flush) (BD PosiFlush Normal Saline 0.9) flush 5-20 mL 5-20 mL, Intravenous, EVERY 1 MIN PRN, Starting on Thu11/05/23 at 0330, Until Thu11/23/23 at 1655, flush, Flush pertains to all indwelling lines. Flush per protocol found in the job aid using the link provided on this medication record., Routine Linked Groups Order Group 1: POCT Fingerstick Glucose (CANCELED) Routine, 4 TIMES DAILY BEFORE MEALS & AT BEDTIME, First occurrence on Thu11/17/23 at 1700, Until Specified, Consider choosing FOUR TIMES A DAY BEFORE MEALS AND AT BEDTIME as frequency for: Patients who have a good hypoglycemia awareness: -Patients who are eating meals during the day and sleeping at night -Patients who are otherwise stable And insulin lispro (HumaLOG;Admelog) (100 unit/mL) subcutaneous injection vial 1-6 UnitsJump to med 1-6 Units, Subcutaneous, 3 TIMES DAILY BEFORE MEALS, First dose on Thu11/17/23 at 1245, Until Discontinued, CORRECTION BOLUS [1-6 Units] Moderate Sliding Scale (BG in mg/dL): Correction factor 20 (1 unit of insulin is expected to drop the glucose 20 mg/dL) BG 140 - 160 Give 1 unit BG 161 - 180 Give 2 units BG 181 - 200 Give 3 units BG 201 - 220 Give 4 units BG 221 - 240 Give 5 units BG greater than 240, give 6 units and recheck BG in 2 hours. - If recheck BG is LESS than 240, give no insulin and resume schedule. - If recheck BG is GREATER than or EQUAL to 240, give 6 units and repeat BG in 2 hours & call for new insulin orders. DO NOT hold if NPO, unless specifically told to do so. ?? Per Inpatient Subcutaneous Insulin Policy, recheck a BG of greater than 240 mg/dL in 2 hours., Routine Group 2: glucose (Glutose) 40% oral geLJump to med 15-30 g of glucose, Buccal, EVERY 15 MIN PRN, Starting on Thu11/11/23 at 2042, Until Thu11/23/23 at 1655, Low blood sugar, For BG 50-70 mg/dL: Oral treatment preferred: If able to drink, give 120 mL juice or regular (not diet) soda OR if NPO, give 15 gram glucose 40% oral gel massaged into buccal mucosa OR if unconscious or uncooperative, give 25 gram (250 mL) dextrose 10% IV over 15 minutes per protocol OR, if no IV access, 1 mg glucagon IM. For BG less than 50 mg/dL: Oral treatment preferred: If able to drink, give 240 mL juice or regular (not diet) soda OR if NPO, give 30 gram glucose 40% oral gel massaged in buccal mucosa OR if unconscious or uncooperative, give 25 gram (250 mL) dextrose 10% IV over 15 minutes per protocol OR, if no IV access, 1 mg glucagon IM. Recheck BG in 15 minutes. May repeat juice/soda, gel, dextrose or glucagon once per episode. Notify provider if hypoglycemia does not resolve after two treatments. Providers should consider the following: administering longer-acting treatments for the duration of active insulin or hypoglycemia agent for persistent hypoglycemia and re-evaluating active insulin orders before administering the next dose. 1 tube of Glutose-15 contains 15 grams of glucose (net weight of tube = 37.5 grams.), Routine Or dextrose 10% infusionJump to med 250 mL, at 1,000 mL/hr, Intravenous, EVERY 15 MIN PRN, Starting on Thu11/11/23 at 2041, Until Thu11/23/23 at 1655, For BG 50-70 mg/dL: Oral treatment preferred: If able to drink, give 120 mL juice or regular (not diet) soda OR if NPO, give 15 gram glucose 40% oral gel massaged into buccal mucosa OR if unconscious or uncooperative, give 25 gram (250 mL) dextrose 10% IV over 15 minutes per protocol OR, if no IV access, 1 mg glucagon IM. For BG less than 50 mg/dL: Oral treatment preferred: If able to drink, give 240 mL juice or regular (not diet) soda OR if NPO, give 30 gram glucose 40% oral gel massaged in buccal mucosa OR if unconscious or uncooperative, give 25 gram (250 mL) dextrose 10% IV over 15 minutes per protocol OR, if no IV access, 1 mg glucagon IM. Recheck BG in 15 minutes. May repeat juice/soda, gel, dextrose or glucagon once per episode. Notify provider if hypoglycemia does not resolve after two treatments. Providers should consider the following: administering longer-acting treatments for the duration of active insulin or hypoglycemia agent for persistent hypoglycemia and re-evaluating active insulin orders before administering the next dose. Or glucagon (Glucagen) (1 mg/mL) injection solution 1 mgJump to med 1 mg, Intramuscular, EVERY 15 MIN PRN, Starting on Thu11/11/23 at 2041, Until Thu11/23/23 at 1655, Low blood sugar, For BG 50-70 mg/dL: Oral treatment preferred: If able to drink, give 120 mL juice or regular (not diet) soda OR if NPO, give 15 gram glucose 40% oral gel massaged into buccal mucosa OR if unconscious or uncooperative, give 25 gram (250 mL) dextrose 10% IV over 15 minutes per protocol OR, if no IV access, 1 mg glucagon IM. For BG less than 50 mg/dL: Oral treatment preferred: If able to drink, give 240 mL juice or regular (not diet) soda OR if NPO, give 30 gram glucose 40% oral gel massaged in buccal mucosa OR if unconscious or uncooperative, give 25 gram (250 mL) dextrose 10% IV over 15 minutes per protocol OR, if no IV access, 1 mg glucagon IM. Recheck BG in 15 minutes. May repeat juice/soda, gel, dextrose or glucagon once per episode. Notify provider if hypoglycemia does not resolve after two treatments. Providers should consider the following: administering longer-acting treatments for the duration of active insulin or hypoglycemia agent for persistent hypoglycemia and re-evaluating active insulin orders before administering the next dose. , Routine documented in this encounter Additional Health Concerns Infection Onset Date Last Indicated Resolved Time Rule Out Respiratory 11/05/2023 11/05/2023 024 6:01 AM EDT Rule Out COVID-19 11/05/2023 11/05/2023 11/05/2023 6:01 AM EDT Rule Out C. difficile 11/11/2023 11/11/20232023 10:49 AM EDT documented as of this encounter Care Teams Dock Pumper Relationship Specialty Start Date End Date Dean Camilo PA [address] [place] [address] PCP - General Internal Medicine 02/01/21 documented as of this encounter
--- OUTSIDE RECORDS SUMMARY | 2024-02-08 15:31 | XMS_ITS | Encounter Summary ---
Author Organization [facility] [place] [address] Care Team Providers Care Security Rep Name Role Phone Dean Camilo Primary Care Provider Encounter Details Date Type Department Care Team (Late st Contact Info) Description 11/06/2023 Telephone [place] [id number] Edwige Rand, RN Social History Tobacco Use Types Packs/Day Years Used Date Smoking Tobacco: Former Cigarettes Q uit: 06/22/1979 Smokeless Tobacco: Never Comments:per phone call 01/02 Alcohol Use Standard Drinks/Week Comments Not Currently 0 (1 standard drink = 0.6 oz pur e alcohol) 1 drink every 3-4 months [facility] Utilities Answer Date Recorded In the past 12 months has [employer], gas, oil, or water [employer] threatened to shut off services in your [...] place to sleep or slept in a long-term (including now)? No 11/05/2023 IPV Inpatient Questions Answer Date Recorded Does [...] documented as of this encounter Miscellaneous Notes * Telephone Encounter - Edwige Rand, RN - 11/06/2023 2:27 PM EDT Copied from [facility] #[id number]. Topic: Specialty Dept CRMs - Generic Call >> November 06, 2023 1:57 PM Bebeto Javed wrote: Specialist: None Relationship (if other than patient-full name): Shayla - charge nurse [facility] Surgical ICU - [phone] Reason for Call: Shayla called to ask if the clinic has an 18 greenlandic hodge catheter they could have. Please contact Shayla to advise. documented in this encounter Plan of Treatment Not on file documented as of this encounter Visit Diagnoses Not on filedocumented in this encounter Care Teams Security Rep Relationship Specialty Start Date End Date Dean Camilo PA [address] [place] [address] PCP - General Internal Medicine 02/01/21 documented as of this encounter
--- OUTSIDE RECORDS SUMMARY | 2024-02-08 15:31 | XMS_ITS | Encounter Summary ---
Author Organization [facility] [place] [address] Care Team Providers Care Field Consultant Name Role Phone Ruben Gillette MD Primary Care Provider + Reason for Visit * Reason Onset Date Comments VNA Calls 01/21/2018 Encounter Details Date Type Department Care Team ([facility] Contact Info) Description 01/21/[address] [facility] [address] [place] [phone] Charity Landa VNA Calls Social History Tobacco Use Types Packs/Day Years [...] encounter Miscellaneous Notes * Telephone Encounter - Charity Landa - 01/21/2018 1:44 PM EDT VNA or Hospice nurse calling from patients home: no Name of person calling: Lilibeth Call back number: [phone] ext [phone] Reason for call: calling stating patient has been doing great and completely normal every visit. They are wondering if she can be discharged from [facility] Nurse Contacted via: Message: y Call: n Pager: n documented in this encounter Plan of Treatment Not on file documented as of this encounter Visit Diagnoses Not on filedocumented in this encounter Care Teams Field Consultant Relationship Specialty Start Date End Date Ruben Gillette MD [facility] [place] [address] PCP - General General Internal Medicine 01/11/1810/20 documented as of this encounter
--- OUTSIDE RECORDS SUMMARY | 2024-02-08 15:31 | XMS_ITS | Encounter Summary ---
Author Organization [facility] [place] [address] Care Team Providers Care E Business Consultant Name Role Phone Dean Camilo Primary Care Provider [phone] Reason for Referral * Consultation (Routine) - Closed Specialty Diagnoses / Procedures Referred By Rommel bhat Referred To Contact Wound Care Diagnoses Type 2 diabetes mellitus with hyperglycemia, with long-term current use of insulin Skin ulcer of toe of right foot, limited to breakdown of skin Roni Vargas MD [facility] [place] [address] [facility] [place] [address] Referral ID Status Reason Start Date Expiration Date V isits Requested Visits Authorized [id number] Closed Consult, Test & Treat 02/07/2021 02/07/2022 1 1 Encounter Details Date Type Department Care Team (Latest Contact Info) Description 02/07/2021 10:00 AM EDT TH Visit (TeleHealth) [place] [address] Roni Vargas MD [facility] [place] [address] Type 2 diabetes mellitus with hyperglycemia, with long-term current use of insulin; Skin ulcer of toe of right foot, limited to breakdown of skin Social History Tobacco Use Types Packs/Day Years [...] as of this encounter Progress Notes * Roni Vargas MD - 02/07/2021 10:00 AM EDT Images from the original note were not included. We are seeing this 70 year old woman to review diabetes care as part of the [facility] Diabetes Outreach Program: Preliminary material: From Court Correa: Pt lives with her Niece, Alicia. Alicia moved in with Hope 6 years ago. At that time Hope had stage 3 ulcer that took 4 months to heal. Primary Care Provider: Dean Camilo Physician Certified Teacher Assistant Date of Diabetes Diagnosis: Gestational diabetes 1966, Gestational Diabetes 1986, 1991 Diabetes dx Current Diabetes Regimen: ???I have no idea what most of my medications are for, but I take them.? Tresiba 20 units between 10:30pm-3:00am ???before bed when my eyes decide to shut? Humalo units typically eats 2 meals/day, 24 units total. ???If I remember, I take it before the meal. Sometimes I take it after the meal? Metformin 2000mg total. 1000mg 9:30am-11:30am takes with breakfast and night time 1000mg between 10:30pm and 3am ??? Current Other Medications: ??? 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 Mental Health: did not ask Dental: no teeth, has dentures, they do not fit so she does not wear them. they hurt her mouth and tear her gums. Dr. Gregory made them and is now retired. Pt is willing to see a new dental provider; she suggests [facility]. Court will help facilitate a visit. Feet: states she would like to see a active directory specialist for ingrown toenails. She can feel feet, however they are sensitive. Wants/needs new pair of shoes. Current sneakers hurt her feet. she is ok with Court setting up podiatry referral. Diabetes Distress Scale: (COURT will insert) TODAYS VISIT: Infected R 5th toe ulcer- blister ulcer Needs appt w podiatry Regimen ??? Tresiba 20 units between 10:30pm-3:00am ???before bed when my eyes decide to shut? Humalo units typically eats 2 meals/day, 24 units total. ???If I remember, I take it before the meal. Sometimes I take it after the meal? Metformin 2000mg total. 1000mg 9:30am-11:30am takes with breakfast and night time 1000mg between 10:30pm and 3am Home glucose monitoring: Recommended frequency [...] is heavy on carbs - meals on wheels,toast, sandwiches , and she may not always be taking her meal insulin with good timing. In additionshe has significant diarrhea with incontinence which may be related to using metformin at high doserather than metformin extended release The goal for her is an HA1c under 8 % but if we can get this under 9 % her risk of signficant dehydration would be diminished and that should be the preliminary goal. To avoid frequent low sugars, I recommend adding a GLP1 like trulicuty 1.5 once a week or ozempic 1 mg a week, while cutting back onthe treisba by 10 %. I also recommend reducing The metformin dose to 500 mg of ER form bid to reduce diarrhea. The GLP1 shoud sensitize her to insulin [...] she gets proper footwear. I will refer her to [facility] podiatry to get a consultation for a footwear prescription. Recommend trulicity 0.75 go to 1.5 Change metformin to ER or XL Metformin 500 bid Reduce tresiba 10 % [employer] Dates for 2020 ___ consultation with primary care physician practice- 3 x a year ___ consultation with endocrinology/supervisory training specialist- 1-2 times a year ___ consultation with extension educator 2 times per year ___ consultation with diabetes dietitian 2 times per year documented in this encounter Plan of Treatment Scheduled Referrals Name Type Priority Associated Diagnoses Orde r Schedule Referral to Podiatry Outpatient Referral Routine Type 2 diabetes mellitus with hyperglycemia, with long-term current use of insulin Skin ulcer of toe of right foot, limited to breakdown of skin Ordered: 02/07/2021 documented as of this encounter Visit Diagnoses Diagnosis Type 2 diabetes mellitus with hyperglycemia, with long-term current use of insulin Skin ulcer of toe of right foot, limited to breakdown of skin documented in this encounter Care Teams E Business Consultant Relationship Specialty Start Date End Date Dean Camilo PA [address] [place] [address] PCP - General Internal Medicine 02/01/21 documented as of this encounter
--- OUTSIDE RECORDS SUMMARY | 2024-02-08 15:31 | XMS_ITS | Encounter Summary ---
[place] [address] Care Team Providers Care Fuel Verification Technician Name Role Phone Ruben Gillette MD Primary Care Provider + Reason for Referral * Diagnostic Test (Routine) - Closed Specialty Diagnoses / Procedures Referred By Rommel bhat Referred To Contact Diagnoses Symptomatic bradycardia Procedures Myra Fournier APRN [facility] [place] [address] Referral ID Status Reason Start Date Expiration Date V isits Requested Visits Authorized [id number] Closed Specialty Service Requested 01/11/2018 01/11/2019 1 1 Reason for Visit * Auth/Cert Specialty Diagnoses / Procedures Referred By Rommel bhat Referred To Contact Diagnoses Symptomatic bradycardia BRADYCARDIA HYPOTENSION Referral ID Status Reason Start Date Expiration Date Visits Re quested Visits Authorized [id number] 1 1 Encounter Details Date Type Department Care Team (Latest Contact Info) Description 01/11/2018 2:30 PM EDT - 01/11/2018 11:59 PM EDT Hospital Encounter [place] [address] Symptomatic bradycardia Discharge Disposition: Home Social History Tobacco Use Types Packs/Day Years [...] Refills Start Date End Date MAGNESIUM GLUCONATE ORAL Take 500 mg by mouth 3 times daily. omeprazole (PRILOSEC) 20 mg Capsule, Delayed Release(E.C.) Take 20 mg by mouth daily. DILTiazem (CARDIZEM CD) 180 mg Capsule, Sust. Release 24 hr Take 1 capsule by mouth daily. 30 capsule 3 01/12/2018 11/23/2023 lisinopril (PRINIVIL;ZESTRIL) 10 mg Tablet Take 1 tablet by mouth daily. 90 tablet 3 01/12/2018 11/23/2023 atorvastatin (LIPITOR) 20 mg Tablet Take 1 tablet by mouth daily. 30 tablet 3 01/11/2018 02/02/2018 metoprolol succinate (TOPROL-XL) 100 mg Tablet Sustained Release 24 hrIndications:ventric ular rate control in atrial fibrillation Take 100 mg by mouth 2 times daily. Indications: Ventricular Rate Control in Atrial Fibrillation 11/23/2023 rivaroxaban 20 mg TabletIndications:Atr ial fibrillation Take 1 tablet by mouth every evening. With meals. (Please run Rx for pricing) 90 tablet 3 05/01/2014 11/23/2023 insulin glargine (LANTUS SOLOSTAR) Insulin Pen Inject [...] cont. to decrease as needed. 3 mL 0 04/03/2014 11/23/2023 insulin aspart (NOVOLOG) Insulin Pen Check blood glucose before each meal. Inject 8 units of novolog by pen for breakfast, 8 units for lunch and 8 units for dinner. 3 mL 0 04/03/2014 11/23/2023 metFORMIN (GLUCOPHAGE) 500 mg tablet Take 1,000 mg by mouth 2 times daily (with meals). 1000 mg = 2 tablets 11/23/2023 documented as of this encounter Plan of Treatment Not on file documented as of this encounter Procedures Procedure Name Priority Date/Time Associated Diagnosis Comments ZIOPATCH Routine 01/11/2018 3:10 PM EDT Symptomatic bradycardia documented in this encounter Results * Ziopatch (01/11/2018 3:10 PM EDT) Anatomical Region Laterality Modality Other Narrative 02/01/2018 9:20 PM EDT Cardiac Electrophysiology Zio Monitor Study Initiated: ??11 January 2018 Duration: ?? 1 days 10 hours (after removal of ~52 hours of artifact) Indication: Bradycardia Result: The overall heart rate range was 55-171/minute, and averaged 92/minute. The predominant underlying rhythm throughout the monitoring period was conducted atrial fibrillation. Artifact and the limited duration of recording interfered with the assessment for diurnal variation of heart rate and heart rate variation. No pauses >3 seconds were seen. There was a <1.0% burden of isolated ectopic ventricular beats detected, but no couplets, triplets, nor runs were detected. The patient wrote in no timed diary entries for symptoms. There was 1 patient-triggered event that corresponded to atrial fibrillation with ventricular rates 96-135/minute. Conclusion: This monitor study was remarkable for persistent atrial fibrillation with a mean ventricular rate of 92/minute. A low overall burden of ventricular ectopy was detected. This evaluation was hampered by substantial artifact and a relatively short duration of signal collection. ____ Interpreted by Ibrahima Miller MD, [facility] Myra Cobb APRN CARDIAC SERVICES ORD ERABLES documented in this encounter Visit Diagnoses Diagnosis Symptomatic bradycardia Other specified cardiac dysrhythmias documented in this encounter Care Teams Fuel Verification Technician Relationship Specialty Start Date End Date Ruben Gillette MD [facility] [place] [address] PCP - General General Internal Medicine 01/11/1810/20 documented as of this encounter
--- OUTSIDE RECORDS SUMMARY | 2024-02-08 15:31 | XMS_ITS | Encounter Summary ---
Author Organization [facility] Address [facility] [place] [address] Care Team Providers Care Marine Rigger Name Role Phone None Primary Care Provider Unavailabl e Encounter Details Date Type Department Care Team (Late st Contact Info) Description 11/02/2018 Telephone Internal Medicine at [facility] [address] [place] [phone] Myra Clark Social History Tobacco Use Types Packs/Day Years [...] encounter Miscellaneous Notes * Telephone Encounter - Myra Clark - 11/02/2018 8:08 AM EDT Spoke to pt about schedule new patient appt. PCP schedule is not out past the end of November so I willcontact her when his schedule is released. * Telephone Encounter - Myra Clark - 11/02/2018 8:08 AM EDT ----- Message from Rosalinda Sheikh sent at 11/02/2018 7:57 AM EDT ----- Regarding: No showed Hi, Can one of you please call this patient and see if she wants to reschedule her appointment that Odell SHOWED back in january, if she does not please take him out of the PCP field. If she does want toreschedule please reschedule her with Farhat, or you can also give her the options of the other accepting providers as well! Thanks, Trudi documented in this encounter Plan of Treatment Not on file documented as of this encounter Visit Diagnoses Not on filedocumented in this encounter Care Teams Marine Rigger Relationship Specialty Start Date End Date None None PCP - General 11/02/18 01/31/21 documented as of this encounter
--- OUTSIDE RECORDS SUMMARY | 2024-02-08 15:31 | XMS_ITS | Encounter Summary ---
[place] [address] Care Team Providers Care Fisheries Specialist Name Role Phone Ruben Gillette MD Primary Care Provider + Reason for Visit * Reason Onset Date Comments Other 02/02/2018 Encounter Details Date Type Department Care Team ([facility] st Contact Info) Description 02/02/2018 Telephone [place] [address] Lora Beaulieu Other Social History Tobacco Use Types Packs/Day Years [...] encounter Miscellaneous Notes * Telephone Encounter - Marika Hensley RN - 02/02/2018 11:10 AM EDT [...] Will call with further questions or concerns. * Telephone Encounter - Avis Kline RN - 02/02/2018 10:41 AM EDT Message forwarded to nurse Linsey 2N. * Telephone Encounter - Lora Beaulieu - 02/02/2018 7:50 AM EDT Message: pt calling, requesting someone call RTC to give permission for her transportation to her appt on 02/04. States she spoke with them yesterday and they asked someone from this office call them at [phone] Caller and relationship (if other than patient-full name): self Best time to call back: any Ok to leave a message: [y] Ok to send my- message: [] Offered Appointment: MA/Nurse contacted via: Message: y Call: n Pager: n documented in this encounter Plan of Treatment Not on file documented as of this encounter Visit Diagnoses Not on filedocumented in this encounter Care Teams Fisheries Specialist Relationship Specialty Start Date End Date Ruben Gillette MD [facility] GENERAL [place] [address] PCP - General General Internal Medicine 01/11/1810/20 documented as of this encounter
--- OUTSIDE RECORDS SUMMARY | 2024-02-08 15:31 | XMS_ITS | Encounter Summary ---
Author Organization [facility] [place] [address] Care Team Providers Care Development Assistant Name Role Phone Ruben Gillette MD Primary Care Provider + Encounter Details Date Type Department Care Team (Late st Contact Info) Description 01/14/2018 Telephone Cardiology at [address] [phone] Mandy Peterson, RN Social History Tobacco Use Types Packs/Day [...] encounter Miscellaneous Notes * Telephone Encounter - Mandy Peterson, RN - 01/14/2018 1:41 PM EDT [facility] Health nurse calling on behalf of patient Calling to report HR 104 irregularly irregular. BP 108/64, O2 97%. Afebrile at 97.3 Feels good, denies CP, dizziness, SOB. Denies fevers, chills, N/V. Pt is keeping adequately hydrated but it was discovered that pt drank half a pot of caffeinated coffee. Pt currently wearing Zio. Took metoprolol, diltiazem this AM. Will take Xarelto this PM. 01/11 EKG shows Afib RVR vent rate 113, at the time of DC note from Myra Crook APRN on 01/11 statesAn irregular rhythm present. Pt has f/u w/ Dr. Brady scheduled 02/09. Notified nurse that if pt becomes symptomatic or if heartrate increases to call our office or have pt visit nearest ED. Home health nurse will visit pt tomorrow and call [facility] w/ update. Spoke with KRIS Cleveland (cell [phone]). If any issues/orders arise triage nurse for [facility] can be called at [phone]. documented in this encounter Plan of Treatment Not on file documented as of this encounter Visit Diagnoses Not on filedocumented in this encounter Care Teams Development Assistant Relationship Specialty Start Date End Date Ruben Gillette MD [facility] GENER[place] [address] PCP - General General Internal Medicine 01/11/1810/20 documented as of this encounter
--- OUTSIDE RECORDS SUMMARY | 2024-02-08 15:31 | XMS_ITS | Encounter Summary ---
[place] [address] Care Team Providers Care Truck Driver Name Role Phone Dean Camilo Primary Care Provider Encounter Details Date Type Department Care Team (Late st Contact Info) Description 03/07/2021 Telephone [place] [phone] Kaleigh Sahni LPN Social History Tobacco Use Types Packs/Day Years [...] encounter Miscellaneous Notes * Telephone Encounter - Kaleigh Sahni LPN - 03/07/2021 2:40 PM EDT Phone call from [place] medicaid ride share. They need a letter of medical necessity faxed to [place] Medicaid for patient to get a ride for her appointment tomorrow. Letter written and faxed to [phone]. Kaleigh Sahni LPN documented in this encounter Plan of Treatment Not on file documented as of this encounter Visit Diagnoses Not on filedocumented in this encounter Care Teams Truck Driver Relationship Specialty Start Date End Date Dean Camilo PA [address] [place] [address] PCP - General Internal Medicine 02/01/21 documented as of this encounter
--- OUTSIDE RECORDS SUMMARY | 2024-02-08 15:31 | XMS_ITS | Encounter Summary ---
Author [facility] Address [facility] [place] [address] Care Team Providers Care Cribber Name Role Phone Dean Cmailo Primary Care Provider Reason for Visit * Reason Comments Medication Refill Encounter Details Date Type Department Care Team (Late st Contact Info) Description 01/17/2019 Refill Cardiology at [address] [address] Myra Cobb APRN [facility] [place] [address] Medication Refill Social History Tobacco Use Types [...] on filedocumented in this encounter Care Teams Cribber Relationship Specialty Start Date End Date Dean Camilo PA Kirti [address] [place] [id number] PCP - General Internal Medicine 02/01/21 documented as of this encounter
--- OUTSIDE RECORDS SUMMARY | 2024-02-08 15:31 | XMS_ITS | Encounter Summary ---
Author Organization [facility] [place] [address] Care Team Providers Care Assayer Name Role Phone Dean Camilo Primary Care Provider Encounter Details Date Type Department Care Team (Late st Contact Info) Description 07/31/2021 2:05 AM EST Ancillary Procedure [place] [address] Sunil Cuba MD [facility] [place] [address] Social History Tobacco Use Types Packs/Day Years [...] Procedure Name Priority Date/Time Associated Diagnosis Comments FILM LIBRARY STORAGE ONLY CT ABDOMEN AND PELVIS Routine 07/31/2021 2:01 AM EST documented in this encounter Results * Film Library- Storage Only CT Abdomen & Pelvis (07/31/2021 2:01 AM EST) Narrative RAD - 07/31/2021 2:01 AM EST This exam is auto-finalizing. It's purpose is for storage only. Sunil Cuba MD IM FILM LIBRARY ORD ERABLES [place], [place] documented in this encounter Visit Diagnoses Not on filedocumented in this encounter Care Teams Assayer Relationship Specialty Start Date End Date Dean Camilo PA [address] [place] [address] PCP - General Internal Medicine 02/01/21 documented as of this encounter
--- OUTSIDE RECORDS SUMMARY | 2024-02-08 15:31 | XMS_ITS | Encounter Summary ---
Author Organization [facility] Address [facility] [place] [address] Care Team Providers Care Geotechnical Field Technician Name Role Phone Dean Camilo Primary Care Provider [phone] Encounter Details Date Type Department Care Team (Late st Contact Info) Description 11/05/2023 Telephone Cardiology at [address] [address] MD [facility] [place] [address] Social History Tobacco Use Types Packs/Day Years Used Date Smoking Tobacco: Former Cigarettes Q uit: 06/22/1979 Smokeless Tobacco: Never Comments:per phone call 01/02 Alcohol Use Standard Drinks/Week Comments Yes 0 (1 standard drink = 0.6 oz pur e alcohol) 1 drink every 3-4 months [facility] Utilities Answer Date Recorded In the past 12 months has th e electric, gas, oil, or water company threatened [...] place to sleep or slept in a longterm (including now)? No 11/05/2023 DH IPV Inpatient [...] encounter Miscellaneous Notes * Telephone Encounter - Marlen St MD - 11/05/2023 12:17 AM EDT Images from the original note were not included. Initial Contact Date: 11/05/23 Referring Provider: [facility] Patient Location: [facility], HPI: Hope Busby is a 73 y.o. female with a history of persistent atrial fibrillation ([id number] 4, on Xarelto), SVT , diabetes type 2, hypertension, hyperlipidemia and obesity who was transferred from [facility] for diarrhea and fatigue. In the OSH her vitals were notable for bradycardia and hypotension- course as follows: OSH findings/interventions: HR 30's BP 70 S/p 0.5 atropine x2 Started IVF K 6.8 Gluc 700 VBG pending - started on IVF and insulin. S/p calcium gluconate TVP floated to the atria but got stuck on valve. Home meds include: Metop 100 daily and Dilt 120 which patient has been taking. BP most recently is 106/39 Assessment: Ms. Busby presents to OSH with HHS/DKA and metabolic derrangements with what appears to be high grade heart block. She is now hemodynamically stable and her HR's are ~40-50. Patient's presentation is most concerning for HHS/DKA, and I believe her heart block is likely due to (1) AV tasia blockade medications and (2) electrolyte abnormalities. I reached out to our MICU colleagues who agreed to accept this patient to their service for furthertreatment. Provided OSH the contingency to trial Dobutamine or Epi if patient is extremely bradycardic and hemodynamically unstable and not responding to Atropine. Would not utilize the TVP if it is not capturing in the LV. Would recommend holding all AVNB until bradycardia is resolved and gently re- introduce. Please feelfree to reach out to Cardiology as needed for further assistance for high grade heart block. Marlen St MD [employer] documented in this encounter Plan of Treatment Not on file documented as of this encounter Visit Diagnoses Not on filedocumented in this encounter Care Teams Geotechnical Field Technician Relationship Specialty Start Date End Date Dean Camilo PA [address] [place] [address] PCP - General Internal Medicine 02/01/21 documented as of this encounter
--- OUTSIDE RECORDS SUMMARY | 2024-02-08 15:31 | XMS_ITS | Encounter Summary ---
[place] [address] Care Team Providers Care Value Advisor Name Role Phone Dean Camilo Primary Care Provider [phone] Reason for Visit * Reason Onset Date Comments Appointment 02/06/2021 Encounter Details Date Type Department Care Team ([facility] Contact Info) Description 02/06/2021 Telephone [place] [address] Zaynab Jerome I Appointment Social History Tobacco Use Types Packs/Day Years [...] encounter Miscellaneous Notes * Telephone Encounter - Zaynab Lau I - 02/06/2021 9:06 AM EDT Unable to contact patient to schedule from referral. Letter sent and referral closed documented in this encounter Plan of Treatment Not on file documented as of this encounter Visit Diagnoses Not on filedocumented in this encounter Care Teams Value Advisor Relationship Specialty Start Date End Date Dean Camilo PA [address] [place] [address] PCP - General Internal Medicine 02/01/21 documented as of this encounter
--- OUTSIDE RECORDS SUMMARY | 2024-02-08 15:31 | XMS_ITS | Encounter Summary ---
Author Organization [facility] [place] [address] Care Team Providers Care Nursery School Attendant Name Role Phone Dean Camilo Primary Care Provider Encounter Details Date Type Department Care Team (Late st Contact Info) Description 07/31/2021 2:10 AM EST Ancillary Procedure [place] [address] Sunil Cuba MD [facility] DR [place] [address] Social History Tobacco Use Types Packs/Day Years [...] Diagnosis Comments FILM LIBRARY STORAGE ONLY CT HEAD Routine 07/31/2021 2:04 AM EST documented in this encounter Results * Film Library- Storage Only CT Head (07/31/2021 2:04 AM EST) Narrative RAD - 07/31/2021 2:04 AM EST This exam is auto-finalizing. It's purpose is for storage only. Sunil Cuba MD IMG FILM LIBRARY ORD ERABLES [place], [place] documented in this encounter Visit Diagnoses Not on filedocumented in this encounter Care Teams Nursery School Attendant Relationship Specialty Start Date End Date Dean Camilo PA [address] [place] [address] PCP - General Internal Medicine 02/01/21 documented as of this encounter
--- OUTSIDE RECORDS SUMMARY | 2024-02-08 15:31 | XMS_ITS | Encounter Summary ---
Author Organization [facility] Address [facility] [place] [address] Care Team Providers Care Double Reamer Operator Name Role Phone Ruben Gillette MD Primary Care Provider + Encounter Details Date Type Department Care Team ([facility] st Contact Info) Description 02/01/2018 Abstract Internal Medicine at [facility] [address] [place] [address] Rosalinda Martino, [facility] Social History Tobacco Use Types Packs/Day Years [...] on filedocumented in this encounter Care Teams Double Reamer Operator Relationship Specialty Start Date End Date Ruben Gillette MD [facility] [place] [address] PCP - General General Internal Medicine 01/11/1810/20 documented as of this encounter
--- OUTSIDE RECORDS SUMMARY | 2024-02-08 15:31 | XMS_ITS | Encounter Summary ---
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 Phone: Indications: Patient with right 5th digit ulcer and nocturnal pain, ? PVD Diabetes mellitus: Yes ICD10 Diagnosis Code: L97.512, E11.621 Findings: Right ?Pressure (mm Hg) ?? PATRICK ??Waveform ? TBI ?? Brachial Artery ?143 ? Common Femoral Artery ?Bi-Triphasic ? Popliteal Artery ? Bi-Triphasic ? Dorsalis Pedis (Ankle) Artery ?173 ? 1.21 ??Bi-Triphasic ? Posterior Tibial (Ankle) Artery ??185 ? 1.29 ??Bi-Triphasic ? Great Toe ?107 ? 0.75 ?? Left ? Pressure (mm Hg) ?? PATRICK ??Waveform ? TBI ?? Brachial Artery ?138 ? Common Femoral Artery ?Bi-Triphasic ? Popliteal Artery ? Bi-Triphasic ? Dorsalis Pedis (Ankle) Artery ?173 ? 1.21 ??Bi-Triphasic ? Posterior Tibial (Ankle) Artery ??175 ? 1.22 ??Bi-Triphasic ? Great Toe ?109 ? 0.76 ?? Interpretation: RIGHT: No significant lower extremity arterial occlusive disease. Normal ankle/brachial pressure ratios, ankle Doppler waveforms and toe pressures. LEFT: No significant lower extremity arterial occlusive disease. Normal ankle/brachial pressure ratios, ankle Doppler waveforms and toe pressures. Comparison: ??No previous study in our vascular lab database for comparison. Electronically Signed by: NANCY PORTILLO on 2021-03-04 09:37:53 AM VASCUBASE VB Text Report End of Report VASCUBASE 02/28/2021 12:5 1 PM EDT Nancy Jeffries HANDLE LATHE OPERATOR VASCULAR ORDERABL ES VASCUBASE documented in this encounter Visit Diagnoses Diagnosis Diabetic ulcer of toe of right foot associated with type 2 diabetes mellitus, with fat layer exposed documented in this encounter Care Teams M1 Armor Crewman Relationship Specialty Start Date End Date Dean Camilo PA [address] [place] [address] PCP - General Internal Medicine 02/01/21 documented as of this encounter
--- OUTSIDE RECORDS SUMMARY | 2024-02-08 15:31 | XMS_ITS | Encounter Summary ---
[place] [address] Care Team Providers Care Optical Glass Wet Inspector Name Role Phone Dean Camilo Primary Care Provider [phone] Encounter Details Date Type Department Care Team (Late st Contact Info) Description 11/04/2023 External [place] [address] Social History Tobacco Use Types Packs/Day Years Used Date Smoking Tobacco: Former Cigarettes Q uit: 06/22/1979 Smokeless Tobacco: Never Comments:per phone call 01/02 Alcohol Use Standard Drinks/Week Comments Yes 0 (1 standard drink = 0.6 oz pur e alcohol) 1 drink every 3-4 months [facility] Utilities Answer Date Recorded In the past 12 months has e [employer]!, gas, oil, or water [employer] threatened to shut off services in your [...] place to sleep or slept in a fpc (including now)? No 11/05/2023 DH IPV Inpatient [...] Procedure Name Priority Date/Time Associated Diagnosis Comments ECG SCAN Routine 11/04/2023 11:34 PM EDT documented in this encounter Results * Scan Doc: ECG (11/04/2023 11:34 PM EDT) Historical Provider MD ROBBINS MGR SCAN EX T ORDR/RSLT documented in this encounter Visit Diagnoses Not on filedocumented in this encounter Additional Health Concerns Infection Onset Date Last Indicated Resolved Time Rule Out Respiratory 11/05/2023 11/05/2023 024 6:01 AM EDT Rule Out COVID-19 11/05/2023 11/05/2023 11/05/2023 6:01 AM EDT documented as of this encounter Care Teams Optical Glass Wet Inspector Relationship Specialty Start Date End Date Dean Camilo PA [address] [place] [address] PCP - General Internal Medicine 02/01/21 documented as of this encounter
--- OUTSIDE RECORDS SUMMARY | 2024-02-08 15:31 | XMS_ITS | Encounter Summary ---
Author Organization [facility] Address [facility] [place] [address] Care Team Providers Care Field Irrigation Worker Name Role Phone Dean Camilo Primary Care Provider Reason for Referral * Diagnostic Test (Routine) - Closed Specialty Diagnoses / Procedures Referred By Romeml bhat Referred To Contact Diagnoses Diabetic ulcer of toe of right foot associated with type 2 diabetes mellitus, with fat layer exposed Procedures PATRICK, legs, multiple levels Nancy Jeffries APRN [facility] [place] [address] [facility] Vascular Lab [address] [place] [address] Referral ID Status Reason Start Date Expiration Date V isits Requested Visits Authorized [id number] Closed Specialty Service Requested 02/15/2021 02/15/2022 1 1 Reason for Visit * Consultation (Routine) - Closed Specialty Diagnoses / Procedures Referred By Contjohn t Referred To Contact Wound Care Diagnoses Type 2 diabetes mellitus with hyperglycemia, with long-term current use of insulin Skin ulcer of toe of right foot, limited to breakdown of skin Roni Vargas MD [facility] [place] [address] [facility] [place] [address] Referral ID Status Reason Start Date Expiration Date V isits Requested Visits Authorized [id number] Closed Consult, Test & Treat 02/07/2021 02/07/2022 1 1 Encounter Details Date Type Department Care Team (Late st Contact Info) Description 02/15/2021 4:00 PM EDT Office [place] [address] Nancy Jeffries APRN [facility] [place] [address] Diabetic ulcer of toe of right foot associated with type 2 diabetes mellitus, with fat layer exposed; Type 2 diabetes mellitus with hyperglycemia, with long-term current use of insulin Social History Tobacco Use Types Packs/Day Years [...] this encounter Patient Instructions * Patient Instructions* Nancy Jeffries APRN - 02/15/2021 4:00 PM [...] and Medipore tape OR Mepilex border dressing OR similar. 6. Secure edges with skin prep. Please [...] Beef, chicken, fish Beans, Lentils, peanut butter Portuguese and regular yogurt Cheese, eggs Boost, Ensure shakes Protein powder in a smoothie of your choice Diabetic Foot Care ?? If you have high blood pressure and/or high cholesterol, work with your health care provider to lower it. ?? Never walk barefoot, neither indoors or outdoors. ?? Examine your feet daily for redness, warmth, blisters, ulcers, scratches, cuts and nail problemsfrom shoes or other sources. Look at the bottoms and between toes. Use a mirror or have someone else look for you. ?? Call your doctor immediately if you experience any injury to your feet. Even a minor injury is an emergency for a patient at high risk. ?? [...] skin is dry, but avoid putting cream betweentoes. Avoid Vaseline, petroleum jelly, mineral oil and [...] taken care of by your physician or director of corporate sales. ?? Avoid using any chemical or strong antiseptic solutions on your feet. Iodine, salicylic acid, corn/callus removers may burn the skin. documented in this encounter Progress Notes * Nancy Jeffries APRN - 02/15/2021 4:00 PM [...] prior to the patient's appointment. Home Care: [facility] Patient Active Problem List Diagnosis Code [...] Patient Position: Sitting, BP Cuff Sizes: Adult (25-34cm)) Pulse 98 SpO2 99% General: pleasant, 70 y.o. female in NAD. Arrives alone. Mobility: Ambulates with cane. Edema: slight to right 5th toe DP, PT pulses faintly palpable Varicosities: minimal Hemosiderin staining: none Stasis dermatitis: none Callus: + to right 5th toe Nails: long, thick 5.07 filament Montandon Lorne monofilament exam: 01/29 Wound location Measurement [...] on wound bed with #15 scalpel down to and including subcutaneous tissue <20 sq cm. Bleeding [...] and Medipore tape OR Mepilex border dressing OR similar. 6. Secure edges with skin prep. Please [...] Beef, chicken, fish Beans, Lentils, peanut butter Portuguese and regular yogurt Cheese, eggs Boost, Ensure shakes Protein powder in a smoothie of your choice Diabetic Foot Care ?? If you have high blood pressure and/or high cholesterol, work with your health care provider to lower it. ?? Never walk barefoot, neither indoors or outdoors. ?? Examine your feet daily for redness, warmth, blisters, ulcers, scratches, cuts and nail problemsfrom shoes or other sources. Look at the bottoms and between toes. Use a mirror or have someone else look for you. ?? Call your doctor immediately if you experience any injury to your feet. Even a minor injury is an emergency for a patient at high risk. ?? [...] skin is dry, but avoid putting cream betweentoes. Avoid Vaseline, petroleum jelly, mineral oil and [...] taken care of by your physician or director of corporate sales. ?? Avoid using any chemical or strong antiseptic solutions on your feet. Iodine, salicylic acid, corn/callus removers may burn the skin. Cc: Roni Vargas MD [facility] [place] [address] PCP: KATHLEEN Retana documented in this encounter Plan of Treatment Not on file documented as of this encounter Results * PATRICK, legs, multiple levels (02/28/2021 12:51 PM EDT) VB Text Report Department: Vascular Surgery Lab Patient: [id number] (DHAVAL YEE) CPT: 73066 ICD10: L97.512;E11.621 Referring Physician: NANCY JEFFRIES ?? [...] 02/28/2021 12:5 1 PM EDT Nancy Jeffries LAY OUT HELPER VASCULAR ORDERABL ES VASCUBASE documented in this encounter Visit Diagnoses Diagnosis Diabetic ulcer of toe of right foot associated with type 2 diabetes mellitus, with fat layer exposed Type 2 diabetes mellitus with hyperglycemia, with long-term current use of insulin documented in this encounter Care Teams Field Irrigation Worker Relationship Specialty Start Date End Date Dean Camilo PA [address] [place] [address] PCP - General Internal Medicine 02/01/21 documented as of this encounter
--- OUTSIDE RECORDS SUMMARY | 2024-02-08 15:31 | XMS_ITS | Encounter Summary ---
Author Organization [facility] Address [facility] [place] [address] Care Team Providers Care Train Operations Supervisor Name Role Phone Dean Camilo Primary Care Provider [phone] Reason for Visit * Reason Comments Medication Refill Encounter Details Date Type Department Care Team (Late st Contact Info) Description 01/11/2019 Refill Cardiology at [address] [address] Myra Cobb APRN [facility] [place] [address] Medication Refill Social History Tobacco Use Types [...] on filedocumented in this encounter Care Teams Train Operations Supervisor Relationship Specialty Start Date End Date Dean Camilo PA [address] [place] [phone] PCP - General Internal Medicine 02/01/21 documented as of this encounter
--- OUTSIDE RECORDS SUMMARY | 2024-02-08 15:31 | XMS_ITS | Encounter Summary ---
Author Organization [facility] Address [facility] [place] [address] Care Team Providers Care Lead Dental Assistant Name Role Phone Ruben Gillette MD Primary Care Provider + Reason for Visit * Reason Onset Date Comments Medication Refill 02/02/2018 Encounter Details Date Type Department Care Team (Late st Contact Info) Description 02/02/2018 Refill Cardiology at [address] [address] Myra Cobb, UNDERGROUND DISTRIBUTION ENGINEER [facility] [place] [address] Medication Refill Social History Tobacco Use Types [...] encounter Miscellaneous Notes * Telephone Encounter - Radha Hernandez RN - 02/02/2018 1:31 PM EDT Patient requesting 90 day supply of atorvastatin 20 mg tablet once daily-. Reviewed patient 01/08/18 hospital discharge. Patient is due for post-hospital check with Dr. Brady on 02/09/18- Ordered prepped for 90 days with refills and forwarded to Dr. Brady for approval Radha Hernandez RN, BSN Ambulatory Cardiology Department documented in this encounter Plan of Treatment Not on file documented as of this encounter Visit Diagnoses Diagnosis Hyperlipidemia, unspecified hyperlipidemia type- Primary documented in this encounter Care Teams Lead Dental Assistant Relationship Specialty Start Date End Date Ruben Gillette MD [facility] [place] [address] PCP - General General Internal Medicine 01/11/1810/20 documented as of this encounter
--- OUTSIDE RECORDS SUMMARY | 2024-02-08 15:31 | XMS_ITS | Encounter Summary ---
[place] [address] Care Team Providers Care River Pilot Name Role Phone Ruben Gillette MD Primary Care Provider + Reason for Visit * Reason Onset Date Comments Transitional Care Management 01/12/2018 Encounter Details Date Type Department Care Team (Late st Contact Info) Description 01/12/2018 Patient Outreach [place] [address] Jessie Bernard [facility] Transitional Care Management Social History Tobacco Use Types Packs/Day Years [...] encounter Miscellaneous Notes * Telephone Encounter - Jessie Gonzalez [facility] - 01/12/2018 3:33 PM EDT Post Hospital Discharge Call Transitional Care 01/12/2018 Date of Current Admission 01/08/2018 Facility [facility] [place] of most recent discharge to home [...] reason for services and contact information and fillout information below HOME HEALTH CARE AGENCY: [facility] PHONE: [phone] FAX: [phone] Action Plan - assure patient understands action [...] on filedocumented in this encounter Care Teams River Pilot Relationship Specialty Start Date End Date Ruben Gillette MD [facility] [place] [address] PCP - General General Internal Medicine 01/11/1810/20 documented as of this encounter
--- OUTSIDE RECORDS SUMMARY | 2024-02-08 15:31 | XMS_ITS | Encounter Summary ---
Author Organization [facility] [place] [address] Care Team Providers Care Rotary Drum Tanner Name Role Phone Dean Camilo Primary Care Provider [phone] Encounter Details Date Type Department Care Team (Late st Contact Info) Description 07/31/2021 Telephone [place] [address] Karley Cuba MD [facility] [place] [address] Social History Tobacco Use Types Packs/Day Years [...] encounter Miscellaneous Notes * Telephone Encounter - Karley Cuba MD - 07/31/2021 1:44 AM EST 71 yo female present to ED with a clamped chronic SP tube with altered mental status, serum Na 122,glucose of > 800, nl WBC, HR of 105, R 20, BP 160/72 and a 4 mm right distal obstructing ureteral stone. No films are available to review. We have no beds for transfers at this time according to the Transfer Center. I suggested if their hospitalist was uncomfortable admitting this patient and jesus calix treating her multiple medical issues that could be the cause of the altered mental status in Mrs. Busby they needed to consult another hospital that can offer internal medical services and possibly place a right PCN. In her present condition see is not a good candidate for surgical placement of a right internal ureteral stent under general or spinal anesthesia. If we had a bed and if our MICU or Hospitalist service had a bed we could offer more assistance. KARLEY CUBA MD documented in this encounter Plan of Treatment Not on file documented as of this encounter Visit Diagnoses Not on filedocumented in this encounter Care Teams Rotary Drum Tanner Relationship Specialty Start Date End Date Dean Camilo PA [address] [place] [address] PCP - General Internal Medicine 02/01/21 documented as of this encounter
--- OUTSIDE RECORDS SUMMARY | 2024-02-08 15:32 | XMS_ITS | Encounter Summary ---
Author Organization [facility] [place] [address] Care Team Providers Care Sales Agent Trading Stamps Name Role Phone Bruna Cardenas APRN Primary Care Provider [phone] Encounter Details Date Type Department Care Team (Late st Contact Info) Description 01/07/2018 [place] [address] Sunshine Rea MD [facility] [place] [address] Social History Tobacco Use Types Packs/Day Years Used Date Smoking Tobacco: Former Cigarettes Q uit: 06/22/1979 Comments:per phone call 01/02 Alcohol Use Standard Drinks/Week Comments Yes 0 (1 standard drink = 0.6 oz pur e alcohol) 1 drink every 3-4 months Sex and Gender Information Value Date Recorded Sex Assigned at Not on file Gender Identity Not on file Sexual Orientation Not on file documented as of this encounter Miscellaneous Notes * Telephone Encounter - Sunshine Rea - 01/07/2018 8:10 PM EDT Telephone Triage Note Initial Contact Date: 01/07/18 Initial contact time: 8:20pm Referring Provider: Dr. Rascon Patient [facility]: [facility] Presenting Symptoms per OSH: 67 year old woman with a history of SVT, atrial fibrillation/flutter (on metoprolol and diltiazem usually, eliquis; last took meds 12pm 01/07), DM who presented with symptomatic bradycardia. 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 EMS found her BP 80's, HR 30-40; poor mentation. Gave her 0.5mg atropine x3; HR increased some with each dose, [...] OSH is without ICU level bed availability. [facility] on level 1. Recommend transfer to [place] for further monitoring. Sunshine Rea MD Billposting Supervisor documented in this encounter Plan of Treatment Not on file documented as of this encounter Visit Diagnoses Not on filedocumented in this encounter Care Teams Sales Agent Trading Stamps Relationship Specialty Start Date End Date Bruna Cardenas APRN PCP - General Family Medicine 12/20/17 01/10/18 documented as of this encounter
--- OUTSIDE RECORDS SUMMARY | 2024-02-08 15:32 | XMS_ITS | Encounter Summary ---
Author Organization [facility] Address One [facility] [place] [address] Care Team Providers Care Dental Office Manager Name Role Phone Hoa Jacques APRN Primary Care Provider + Encounter Details Date Type Department Care Team (Latest Contact Info) Description 10/06/2011 3:45 PM EDT - 10/06/2011 11:59 PM EDT Hospital Encounter XRay at [address] [place] [address] Seronegative arthritis; Osteoarth NOS-l/leg Social History Tobacco Use Types Packs/Day Years Used Date Smoking Tobacco: Former Cigarettes Q uit: 06/22/1979 Comments:per phone call 01/02 Alcohol Use Standard Drinks/Week Comments Not Asked 0 (1 standard drink = 0.6 oz pur e alcohol) Sex and Gender Information Value Date Recorded Sex Assigned at Not on file Gender Identity Not on file Sexual Orientation Not on file documented as of this encounter Medications at Time of Discharge Medication Sig Dispensed Refills Start Date End Date simvastatin (ZOCOR) 20 mg tablet Take 20 mg by mouth nightly. 01/11/2018 pioglitazone (ACTOS) 30 mg tablet Take 30 mg by mouth daily. 03/29/2014 metoprolol tartrate (LOPRESSOR) 50 mg tablet Take 50 mg by mouth 2 times daily. 03/30/2014 glipiZIDE (GLUCOTROL) 10 mg 24 hr tablet Take 10 mg by mouth daily. 03/29/2014 metFORMIN (GLUCOPHAGE) 500 mg tablet Take 1,000 mg by mouth 2 times daily (with meals). 1000 mg = 2 tablets 11/23/2023 CIS Free Text Med - BD alcohol swabs 05/16/2007 03/29/2014 insulin glargine (LANTUS) 100 unit/mL injection 05/16/2007 03/29/2014 folic acid (FOLVITE) 1 mg tablet 05/16/2007 03/29/2014 CALCIUM ORAL 05/16/2007 03/29/2014 documented as of this encounter Plan of Treatment Not on file documented as of this encounter Procedures Procedure Name Priority Date/Time Associated Diagnosis Comments XR KNEE AP AND LAT BILAT Routine 10/06/2011 4:06 PM EDT Other specified arthropathy, site unspecified Osteoarth NOS-l/leg documented in this encounter Results * XR KNEE BILATERAL1 OR 2 VIEW (10/06/2011 4:06 PM EDT) Anatomical Region Laterality Modality Knee Bilateral Radiographic Shawna ging 10/06/2011 4:06 PM EDT Narrative 10/06/2011 5:19 PM EDT Examination KNEE BILATERAL 1 OR 2 VIEWS/BILAT Clinical History Reason for exam and clinical history: Pain, instability. OA?; Comparison NONE Findings Slightly narrowed medial joint spaces of both knees with small osteophyte formation. ??No knee effusion. Impression Bilateral osteoarthropathy with medial joint space narrowing. Procedure Note Mary Kay Ding MD - 10/06/2011 Examination KNEE BILATERAL 1 OR 2 VIEWS/BILAT Clinical History Reason for exam and clinical history: Pain, instability. OA?; Comparison NONE Findings Slightly narrowed medial joint spaces of both knees with small osteophyte formation. No knee effusion. Impression Bilateral osteoarthropathy with medial joint space narrowing. Orlando Encinas MD IMG DX ORDERABLES documented in this encounter Visit Diagnoses Diagnosis Seronegative arthritis Other specified arthropathy, site unspecified Osteoarthrosis, unspecified whether generalized or localized, lower leg documented in this encounter Care Teams Dental Office Manager Relationship Specialty Start Date End Date Hoa Jacques APRN PCP - General 06/24/10 12/19/17 documented as of this encounter
--- OUTSIDE RECORDS SUMMARY | 2024-02-08 15:32 | XMS_ITS | Encounter Summary ---
[place] [address] Care Team Providers Care Garden Labourer Name Role Phone Hoa Jacques APRN Primary Care Provider + Reason for Visit * Reason Comments Skin Check Encounter Details Date Type Department Care Team (Late st Contact Info) Description 04/29/2013 11:15 AM EST Office Visit Dermatology at [address] [place] [address] David Ayoub MD [address] [place] [address], [place] [address] History of malignant melanoma (Primary Dx); History of basal cell carcinoma; Rosacea Social History Tobacco Use Types Packs/Day Years [...] as of this encounter Progress Notes * David Ayoub MD - 04/29/2013 12:00 PM [...] 45 grams dispensed with five refills. b. [id number] reminder in one year. COPY: Lana Ramos M.D. documented in this encounter Plan of Treatment Not on file documented as of this encounter Visit Diagnoses Diagnosis History of malignant melanoma- Primary Personal history of malignant melanoma of skin History of basal cell carcinoma Personal history of other malignant neoplasm of skin Rosacea documented in this encounter Care Teams Garden Labourer Relationship Specialty Start Date End Date Hoa Jacques APRN PCP - General 06/24/10 12/19/17 documented as of this encounter
--- OUTSIDE RECORDS SUMMARY | 2024-02-08 15:32 | XMS_ITS | Encounter Summary ---
Author Organization [facility] [place] [address] Care Team Providers Care Ticket Manager Name Role Phone Hoa Jacques APRN Primary Care Provider + Reason for Visit * Reason Onset Date Comments Medication Refill 04/03/2014 Encounter Details Date Type Department Care Team (Late st Contact Info) Description 04/03/2014 Refill Cardiology at [address] [address] Cathie Venegas MD [facility] [place] [address] Medication Refill Social History Tobacco Use Types [...] on filedocumented in this encounter Care Teams Ticket Manager Relationship Specialty Start Date End Date Hoa Jacques APRN PCP - General 06/24/10 12/19/17 documented as of this encounter
--- OUTSIDE RECORDS SUMMARY | 2024-02-08 15:32 | XMS_ITS | Encounter Summary ---
Author Organization [facility] [place] [address] Care Team Providers Care Leather Goods Sales Representative Name Role Phone Bruna Cardenas APRN Primary Care Provider [phone] Encounter Details Date Type Department Care Team ([facility] st Contact Info) Description 01/07/2018 External [place] [address] Perry Greene MD [address] [place] [id number] Social History Tobacco Use Types Packs/Day Years [...] Date/Time Associated Diagnosis Comments ECG SCAN Routine 01/07/2018 documented in this encounter Results * Scan Doc: ECG (01/07/2018) Perry Greene MD MEDIA MGR SCAN EXT O RDR/RSLT documented in this encounter Visit Diagnoses Not on filedocumented in this encounter Care Teams Leather Goods Sales Representative Relationship Specialty Start Date End Date Bruna Cardenas APRN PCP - General Family Medicine 12/20/17 01/10/18 documented as of this encounter
--- OUTSIDE RECORDS SUMMARY | 2024-02-08 15:32 | XMS_ITS | Encounter Summary ---
Author Organization [facility] Address [facility] [place] [address] Care Team Providers Care Mapping Analyst Name Role Phone Hoa Jacques APRN Primary Care Provider + Encounter Details Date Type Department Care Team (Late st Contact Info) Description 10/06/2011 3:44 PM EDT - 10/06/2011 11:59 PM EDT Hospital Encounter XRay at [address] [place] [address] CLINIC, Orlando Hogue MD [facility] [place] [address] Seronegative arthritis; Osteoarthrosis, unspecified whether generalized or localized, hand Discharge Disposition: Home Social History Tobacco Use [...] Name Priority Date/Time Associated Diagnosis Comments XR HANDS MIN 3 VIEWS BILAT Routine 10/06/2011 4:06 PM EDT Seronegative arthritis Osteoarthrosis, unspecified whether generalized or localized, hand documented in this encounter Results * XR hands bilateral (10/06/2011 4:06 PM EDT) Anatomical Region Laterality Modality Hand Bilateral Radiographic Shawna ging 10/06/2011 4:06 PM EDT Narrative 10/06/2011 5:18 PM EDT Examination BILATERAL HANDS/BILAT Clinical History Reason for exam and clinical history: H/O seronegative RA. ?erosions.; Comparison April 2007. Findings The bone mineralization is normal. ??The soft tissues surrounding the right 3rd PIP joint is swollen. Joints- ? 1. Interphalangeal joints-diffuse DIP joint osteoarthropathy characterized by small osteophyte formation and eccentric joint space narrowing. ??The cystic changes in the right 2nd and 3rd middle phalangeal heads are more prominent. ?? No ankylosis or periostitis. ??The osteophytes arising from the right 3rd DIP joint hve also increased. ??And there is newly developed narrowed 3rd PIP joint space narrowing. ??The osteoarthropathy of scattered remaining PIP joints are similar. ? 2. MCP joints-no erosions. ? 3. Radiocarpal joint-there are no erosions. ??Specifically, the ulnar styloid normal. Impression ? 1. Osteoarthropathy of multiple IP joints. ? 2. These cystic change and osteophyte formation, most prominent in the right 2nd and 5th DIP and right 5th PIP joints have progressed since the last examination. ? 3. Findings likely represent progression of osteoarthropathy rather than inflammatory osteoarthropathy. Procedure Note Mary Kay Ding MD - 10/06/2011 Examination BILATERAL HANDS/BILAT Clinical History Reason for exam and clinical history: H/O seronegative RA. ?erosions.; Comparison April 2007. Findings The bone mineralization is normal. The soft tissues surrounding the [id number] PIP joint is swollen. Joints- 1. Interphalangeal joints-diffuse DIP joint osteoarthropathycharacterized by small osteophyte formation and eccentric joint space narrowing. Thecystic changes in the right 2nd and 3rd middle phalangeal heads are moreprominent. No ankylosis or periostitis. The osteophytes arising from the right 3rdDIP joint hve also increased. And there is newly developed narrowed 3rd PIPjoint space narrowing. The osteoarthropathy of scattered remaining PIP jointsare similar. 2. MCP joints-no erosions. 3. Radiocarpal joint-there are no erosions. Specifically, the ulnar styloid normal. Impression 1. Osteoarthropathy of multiple IP joints. 2. These cystic change and osteophyte formation, most prominent inthe right 2nd and 5th DIP and right 5th PIP joints have progressed since thelast examination. 3. Findings likely represent progression of osteoarthropathy ratherthan inflammatory osteoarthropathy. Orlando Encinas MD IMG DX ORDERABLES documented in this encounter Visit Diagnoses Diagnosis Seronegative arthritis Other specified arthropathy, site unspecified Osteoarthrosis, unspecified whether generalized or localized, hand documented in this encounter Care Teams Mapping Analyst Relationship Specialty Start Date End Date Hoa Jacques, SUPERVISOR ESTIMATOR AND DRAFTER PCP - General 06/24/10 12/19/17 documented as of this encounter
--- OUTSIDE RECORDS SUMMARY | 2024-02-08 15:32 | XMS_ITS | Encounter Summary ---
[place] [address] Care Team Providers Care Mental Health Associate Name Role Phone Hoa Jacques APRN Primary Care Provider + Reason for Visit * Reason Onset Date Comments Results 10/13/2011 labs and xrays Encounter Details Date Type Department Care Team (Late st Contact Info) Description 10/13/2011 Telephone [place] [phone] Celeste Alanis LPN Results (labs and xrays) Social History Tobacco Use Types Packs/Day Years [...] encounter Miscellaneous Notes * Telephone Encounter - Celeste Alanis LPN - 10/13/2011 9:31 AM EDT Called and spoke with patient relayed info below per Dr Espinoza. Patient will call if she has any further questions or concerns. * Telephone Encounter - Celeste Alanis LPN - [...] on filedocumented in this encounter Care Teams Mental Health Associate Relationship Specialty Start Date End Date Hoa Jacques APRN PCP - General 06/24/10 12/19/17 documented as of this encounter
--- OUTSIDE RECORDS SUMMARY | 2024-02-08 15:32 | XMS_ITS | Encounter Summary ---
Author Organization [facility] Address One [facility] [place] [address] Care Team Providers Care Barn And Property Manager Name Role Phone Hoa Jacques APRN Primary Care Provider + Encounter Details Date Type Department Care Team (Latest Contact Info) Description 10/06/2011 3:45 PM EDT - 10/06/2011 11:59 PM EDT Hospital Encounter XRay at [address] [place] [address] Seronegative arthritis; Osteoarth NOS-ankle Social History Tobacco Use Types Packs/Day Years [...] Name Priority Date/Time Associated Diagnosis Comments XR FOOT MIN 3 VIEWS BILAT Routine 10/06/2011 4:06 PM EDT Seronegative arthritis Osteoarth NOS-ankle documented in this encounter Results * XR feet bilateral minimum 3 views (10/06/2011 4:06 PM EDT) Anatomical Region Laterality Modality Foot Bilateral Radiographic Shawna ging 10/06/2011 4:06 PM EDT Narrative 10/07/2011 10:06 AM EDT BILATERAL FEET, THREE VIEWS EACH SIDE, 10/06/2011 CLINICAL HISTORY: ??Seronegative rheumatoid arthritis. TECHNIQUE: ??Three views of the feet were acquired bilaterally with the patient weightbearing and compared to 05/05/2007. FINDINGS: ??As seen on the previous study, there is proliferative bone at the Achilles insertion bilaterally and there are plantar spurs bilaterally. ??The contour of the Achilles tendon is normal in appearance bilaterally and no retrocalcaneal bursal fluid is identified. ??I do not see erosive destruction at the heel. ??At the ankle no effusion is seen in either foot. ??There is joint space narrowing, sclerosis and osteophyte formation at the first metatarsophalangeal joints bilaterally. ??The appearance is most consistent with osteoarthritis. ??I do not see any definite erosive destruction of bone. ??There is periarticular calcification at the MTP joint of the left fourth toe. ??This is a new finding. ??It suggests hydroxyapatite deposition. ??The clinical significance is unclear to me. Procedure Note Silvano Stone MD - 10/07/2011 BILATERAL FEET, THREE VIEWS EACH SIDE, 10/06/2011 CLINICAL HISTORY: Seronegative rheumatoid arthritis. TECHNIQUE: Three views of the feet were acquired bilaterally with thepatient weightbearing and compared to 05/05/2007. FINDINGS: As seen on the previous study, there is proliferative bone atthe Achilles insertion bilaterally and there are plantar spurs bilaterally.The contour of the Achilles tendon is normal in appearance bilaterally and no retrocalcaneal bursal fluid is identified. I do not see erosivedestruction at the heel. At the ankle no effusion is seen in either foot. There isjoint space narrowing, sclerosis and osteophyte formation at the first metatarsophalangeal joints bilaterally. The appearance is most consistentwith osteoarthritis. I do not see any definite erosive destruction of bone.There is periarticular calcification at the MTP joint of the left fourth toe.This is a new finding. It suggests hydroxyapatite deposition. The clinical significance is unclear to me. Orlando Encinas MD IMG DX ORDERABLES documented in this encounter Visit Diagnoses Diagnosis Seronegative arthritis Other specified arthropathy, site unspecified Osteoarthrosis, unspecified whether generalized or localized, ankle and foot documented in this encounter Care Teams Barn And Property Manager Relationship Specialty Start Date End Date Hoa Jacques APRN PCP - General 06/24/10 12/19/17 documented as of this encounter
--- OUTSIDE RECORDS SUMMARY | 2024-02-08 15:32 | XMS_ITS | Encounter Summary ---
Author Organization [facility] [place] [address] Care Team Providers Care Electrical Cad Technician Name Role Phone Dean Camilo Primary Care Provider Reason for Visit * Reason Comments Medication Refill Encounter Details Date Type Department Care Team (Late st Contact Info) Description 06/09/2014 Refill Cardiology at [address] [address] Cathie Venegas MD [facility] [place] [address] Medication Refill Social History Tobacco Use Types [...] on filedocumented in this encounter Care Teams Electrical Cad Technician Relationship Specialty Start Date End Date Dean Camilo PA [address] [place] [id number] PCP - General Internal Medicine 02/01/21 documented as of this encounter
--- OUTSIDE RECORDS SUMMARY | 2024-02-08 15:32 | XMS_ITS | Encounter Summary ---
Author Organization [facility] [place] [address] Care Team Providers Care Protozoologist Name Role Phone Quin Gordon APRN Primary Care Provider + Encounter Details Date Type Department Care Team (Latest Contact Info) Description 03/29/2014 2:04 AM EDT - 03/30/2014 3:27 PM EDT Hospital Encounter [facility] [address] [place] [address] Cathie Venegas MD [facility] [place] [address] Atrial fibrillation; SVT (supraventricular tachycardia); Diabetes mellitus Discharge Disposition: Home Social History Tobacco Use [...] 36.6 ??C (97.9 ??F) 03/30/2014 11:43 AM E DT Respiratory Rate 18 03/30/2014 11:43 AM EDT Oxygen Saturation 98% 03/30/2014 11:43 AM EDT Inhaled Oxygen Concentration - - Weight 91.4 kg (201 lb 8 oz) 03/30/2014 5:00 AM EDT Height 170.2 cm (5' 7) 03/29/2014 2:26 AM EDT Body Mass Index 31.56 03/29/2014 2:26 AM EDT documented in this encounter Discharge Instructions * Discharge Instructions* Leticia Paz APRN - 03/30/2014 2:55 PM EDT [...] in a row, add TWO units of insulin to the next LANTUS [...] avoid another low BG in the future. Call your doctor for blood sugars less than 80 or greater than 300 twice in one day to have your insulin doses adjusted. [facility] Endocrine clinic office * Patient Instructions* Lana Suarez - 03/29/2014 5:33 PM EDT Patient Instructions [...] [facility] With Gracie Gordon at [phone] on Friday, April 04, 2014 at 08:00am PCP: QUIN GORDON APRN at [phone] Your Inpatient Medical Team at [facility] Name(s) of your inpatient provider(s): Dr. Cathie Venegas - Attending Dr. Cornelia Messer - Fellow Dr. González Craven - Resident Dr. Lana Suarez - Plasterer Spray Gun For questions regarding issues relating to your hospitalization on the Cardiology, please contact your inpatient physician through the [facility] Road Supervisor Of Engines [phone]. Issues after hours and on weekendswill be handled by the gas meter installer helper on-call. Your Primary Care Provider QUIN GORDON APRN [phone] documented in this encounter Medications at Time of Discharge Medication Sig Dispensed Refills Start Date End Date MAGNESIUM GLUCONATE ORAL Take 500 mg by mouth 3 times daily. omeprazole (PRILOSEC) 20 mg Capsule, Delayed Release(E.C.) Take 20 mg by mouth daily. rivaroxaban 20 mg Tablet Take 1 tablet by mouth every evening. With meals. (Please run Rx for pricing) 30 tablet 12 03/30/2014 05/01/2014 insulin glargine (LANTUS SOLOSTAR) Insulin Pen Inject [...] cont. to decrease as needed. 3 mL 12 03/30/2014 04/03/2014 insulin aspart (NOVOLOG) Insulin Pen Check blood glucose before each meal. Inject 8 units of novolog by pen for breakfast, 8 units for lunch and 8 units for dinner. 3 mL 12 03/30/2014 04/03/2014 metoprolol succinate (TOPROL-XL) 50 mg Tablet Sustained Release 24 hr Take 3 tablets by mouth daily. 90 tablet 6 03/30/2014 04/03/2014 DILTiazem (TIAZAC) 120 mg Capsule, Sustained Release Take 1 capsule by mouth daily. 30 capsule 6 03/30/2014 04/03/2014 simvastatin (ZOCOR) 20 mg tablet Take 20 mg by mouth nightly. 01/11/2018 metFORMIN (GLUCOPHAGE) 500 mg tablet Take 1,000 mg by mouth 2 times daily (with meals). 1000 mg = 2 tablets 11/23/2023 documented as of this encounter Progress Notes * Kimberly Mejias RN - 03/30/2014 3:07 PM EDT Drum Straightener assumed care of pt at 0700. A&OX3. VSS on RA. Pt calm and cooperative in care. Pt OOB with standby assist to bathroom. Pt voiding without difficulties. Pt on heparin drip with PTTs checkedand heparin adjusted per AUG. Pt with good appetite. Pt continues to be receptive to diabetic teaching. Pt able to make needs known, call light within reach. Please see MAR and interactive view for ad ditional information. 1430: BG rechecked 2hrs after lunch dose because BG was >240 for lunch. Repeat BG was >240 when rechecked ad 8 units of insulin was given per MAR. Attending MD Venegas at bedside and aware of elevated BG and is ok with pt being discharged with elevated BG. Discharge order and discontinue IV order placed by MD. IVs removed for discharge. Discharge paperwork reviewed with pt. Pt understands and agrees with discharge and discharge paperwork. Pt given medication from outpatient pharmacy to go home with . Pt wheeled [facility] to major hospital for ride home. Pthad belongings with her on discharge. * Cathie Venegas MD - 03/30/2014 2:39 PM [...] findings, answering all questions, and explaining activity limitationsand follow up plans required 20 minutes. Cathie Venegas MD [facility] staff diversified crops farmworker/ pager [phone] * Lana Suarez - 03/30/2014 2:36 PM EDT Cardiology Inpatient- [...] >30 minutes spent in organizing her discharge * Dennis Mitchell MSW - 03/30/2014 12:04 PM EDT Arrangements made for RCT to transport patient home to [place], [place] at 3 pm. * Leticia Paz APRN - 03/30/2014 9:46 AM EDT Images from the original note were not included. Follow Up Diabetes Consult Patient Interview Dhaval was up in her chair anticipating discharge. She has been working with nursing and states sheis comfortable with calculating her correction with her [...] of 239 indicating she requires and increase in both basal and bolus insulin. Discharge instructions provided and reviewed. Appreciate nurse teaching. She will follow up in endocrine clinic, she knows she may call with any questions. PLAN Lantus: 35 units at 2100 Novolog 1:6 insulin to carbohydrate ratio Novolog for correction q 4 hours using moderate sliding scale Leticia Paz APRN [facility] Endocrinology Diabetes Management 20 minutes of this [...] in a row, add TWO units of insulin to the next LANTUS [...] avoid another low BG in the future. Call your doctor for blood sugars less than 80 or greater than 300 twice in one day to have your insulin doses adjusted. [facility] Endocrine clinic office * Varghese Chanel - 03/29/2014 8:49 AM EDT Backwinder Encounter Note Patient Name: Dhaval Yee : [id number] MR#: [id number] Admit Date: 03/29/2014 2:04 AM Hospital Day 0 days Narrative:Visited to introduce and assess acceptance of Backwinder services. Pt was awake, alert, oriented and in bed. Pt says that she is feeling better now. Pt shared that her three daughters are living in same area [facility] and they are supportive. Assessment:Patient coping positively with stresses of illness/hospitalization at this time. Pt has family care and support and appreciative of family. Pt is hoping to get better and go home. Intervention and Outcome:Provided emotional support and encouraging presence. Backwinder services accepted. Conversation to build trusting relationship. Provided pastoral presence. Provided spiritualguidance. Follow-up: Yes Time in Direct Care:10 Mins Varghese Chanel 03/29/2014 documented in this encounter H&P Notes * Cathie Venegas MD - 03/29/2014 2:30 AM EDT Inpatient Cardiology - Admission History & Physical - M1S1 - Pager [phone] Presenting diagnosis/chief complaint: Atrial Fibrillation/SVT History of present illness: Dhaval Yee is a 63 y.o. female with PMH of HTN, HLD, DM Type II,SVT/AFib, Rheumatoid Arthritis, GERD, among others, who presents with heart racing/palpitations andnot feeling well. Patient states she was having a lazy Deborah at home, not doing much. She was taking a nap on the couch in the afternoon. She awoke and states she had a really bad headache. She didn't feel quite right, but couldn't states specifically what was wrong. She denied CP at that time and states her heart rate was normal. She states she just felt [...] poorly. She states at that time she h ad a SMITH, stomach turning/nausea and diaphoresis. Then [...] she called 911 and was taken to [facility]. En route, patient was found have a HR of 160-170 range and was given Dilt IV push, which helped reduced her HR and her symptoms. Per EMS report, at that time the rhythm was clearly AFib. Her BP was stable during transport in the 120-130 SBP. When she arrived there, she still felt poorly. Her HR was still elevated. Patient was given Dilt 20mg IV bolus and started on a gtt. She also received Metoprolol 5 mg IV and Metoprolol 100 mg PO. Her heart rate continued to be elevated in the 130-140 range, again with stable BP. Patient was then discussed with [facility] Cardiology and transferred for further evaluation. En route to [facility], patient spontaneously converted to NSR with rates [...] frequency of the episodes appears to have increased, as she had 4-5 episodes and had [...] episodes. Per a Cardiology note sent with hertransfer packet date 03/01/14, she has received Dilt [...] - EKG 03/29: NSR with PACs Assessment/Plan: Dhaval Yee is a 63 y.o. female with PMH [...] to either pAF or pSVT, but her havin g episodes with HR near 200 (per report) does not sound like AFib/AFlutter. Also, termination with vagal maneuvers, carotid massage (and potentially Adenosine) speak against AFib/AFlutter. Speaking for AFib is the irregular rhythm, lack of regular P-waves and the rate. Her current EKG shows NSR with frequent PACs, however these PACs have a P-wave with [...] consider ablation. If this is truly AFib, will need to discuss outpatient anticoagulation with her as her [id number] score is 4 (age = 1, sex [...] 12 lead ECG demonstrating a very short CA suggesting a tasia- dependent pathway. I appreciate input from EP. Cathie Venegas MD [facility] staff diversified crops farmworker/ pager [phone] documented in this encounter Procedure Notes * Provider, Scanning - 03/31/2014 2:06 PM EDTAssociated Order(s): SCAN DOC: ECG * Provider, Scanning - 03/31/2014 12:51 PM EDTAssociated Order(s): SCAN DOC: ANTIQUE FURNITURE RESTORER documented in this encounter Consult Notes * Provider, Scanning - 03/31/2014 2:04 PM EDT documented in this encounter Miscellaneous Notes * Discharge Summary - Cathie Venegas MD - 03/30/2014 1:52 PM EDT Discharge Summary Patient Name: Dhaval Yee Patient Age: 63 y.o. Language: Sri Lankan Race: White Ethnicity: Not nor Admit date: 03/29/2014 Discharge date and time: 03/30/2014 Attending Physician: Cathie Venegas MD Discharge Physician: Lana Suarez MD Follow-up Recommendations for Providers: [phone][facility] that would appreciate outpatient Holter monitor prior to her appointment with EP. Inpatient Provider Contact Information: Dr. Cathie Venegas - Attending Dr. Cornelia Messer - Fellow Dr. González Craven - Resident Dr. Lana Suarez - Plasterer Spray Gun Discharge Diagnoses (Hospital Problems) and Secondary Diagnoses [...] Other Major Procedures: None History of Presentation: Dhaval Yee is a 63 y.o. female with PMH of HTN, HLD, DM Type II, SVT/AFib, Rheumatoid Arthritis, GERD, among others, who presents with heart racing/palpitations and not feeling well. Patient states she was having a lazy Thursday at home, not doing much. She was taking a nap on the couch in the afternoon. She awoke and states she had a really bad headache. She didn't feel quite right, but couldn't states specifically what was wrong. She denied CP at that time and states her heart rate was normal. She states she just felt [...] poorly. She states at that time she h ad a SMITH, stomach turning/nausea and diaphoresis. Then [...] she called 911 and was taken to [facility]. En route, patient was found have a HR of 160-170 range and was given Dilt IV push, which helped reduced her HR and her symptoms. Per EMS report, at that time the rhythm was clearly AFib. Her BP was stable during transport in the 120-130 SBP. When she arrived there, she still felt poorly. Her HR was still elevated. Patient was given Dilt 20mg IV bolus and started on a gtt. She also received Metoprolol 5 mg IV and Metoprolol 100 mg PO. Her heart rate continued to be elevated in the 130-140 range, again with stable BP. Patient was then discussed with [facility] Cardiology and transferred for further evaluation. En route to [facility], patient spontaneously converted to NSR with rates [...] frequency of the episodes appears to have increased, as she had 4-5 episodes and had [...] episodes. Per a Cardiology note sent with hertransfer packet date 03/01/14, she has received Dilt [...] a sinus rhythm on EKG. The diltiazem gtt was continued on HD#1 as she was in sinus rhythm. The EP team was consulted and recommended a Holter monitor and a follow up appointment in 4-6 [...] dose of rivaroxaban. Risks and benefits of substitute nurse anticoagulation options were discussed and the patient elected for rivaroxaban as shehas a non-valvular arrhythmia. The patient was monitored on tele and found to have no further episodes and was deemed stable for discharge home on metoprolol and diltiazem. Hyperglycemia On admission the patient's HgA1C was >10. The diabetes management team was consulted who went and discussed options with the patient. They recommended stopping [...] 03/30/2014 CREATININE 0.62* 03/30/2014 Recent Labs Basename 03/29/14318 TSH 0.62 Recent Labs Basename 03/29/14318 HA1C [...] [facility] With Gracie Gordon at [phone] on Friday, April 04, 2014 at 08:00am PCP: QUIN GORDON APRN at [phone] Your Inpatient Medical Team at [facility] Name(s) of your inpatient provider(s): Dr. Cathie Venegas - Attending Dr. Cornelia Messer - Fellow Dr. González Craven - Resident Dr. Lana Suarez - Plasterer Spray Gun For questions regarding issues relating to your hospitalization on the Cardiology, please contact your inpatient physician through the [facility] Road Supervisor Of Engines [phone]. Issues after hours and on weekendswill be handled by the gas meter installer helper on-call. Your Primary Care Provider QUIN GORDON APRN [phone] General Instructions Insulin Discharge Instructions You have [...] in a row, add TWO units of insulin to the next LANTUS [...] avoid another low BG in the future. Call your doctor for blood sugars less than 80 or greater than 300 twice in one day to have your insulin doses adjusted. [facility] Endocrine clinic office Future Appointments and Orders Future Appointments: Provider: Department: Dept Phone: Center: 05/01/2014 10:45 AM David Ayoub MD [facility] [phone] None 05/01/2014 2:30 PM Katy Dickey APRN Endocrinology [phone] [facility] 05/11/2014 1:10 PM Jeff Feliciano MD Cardiology [phone] [facility] Joint Appt Nurse One Cardiology Intake, RN [place] [phone] [facility] Discharge References/Attachments None * Plan of Care - Natalie Zepeda RN - 03/30/2014 6:29 AM EDT Problem: Pain, Acute (Adult, Obstetrics) Goal: Acceptable Pain Control/Comfort Level Patient will demonstrate the desired outcomes. Outcome: Absent and monitoring Ms. Yee has consistnelty denied pain thoughout this certified surgical technologist. She appeared to sleep well during the night. Addendum - no signs of obstructive sleep apnea observed during the night. * Consult Note - Leticia Paz APRN - 03/29/2014 3:16 PM EDT Diabetes Management Team Inpatient Consult Date of Consultation: 03/29/2014 Consult Requested by: Dr Suarez cardiology Reason for Consultation: Dhaval Yee is a 63 y.o. years old female with PMH significant for Type 2 DM who was admitted on 03/29/2014 currently being treated for a-fib and SVT. We are being consulted to assist with diabetes management and to provide a review of fdc diabetes care. Diabetes History: Dhaval Yee has had diabetes for about 33 years. She had gestational diabetes with both pregnancies then it returned 4 years later. She controlled it by diet for about 4 years. She then startedmetformin and enjoyed good control for about 10-12 years. She was then started on lots of meds that made me gain weight She reached a maximum weight of 347 lbs and decided to wean myself off the pills. She started walking, horse backriding changed her diet and lost 187 lbs. Then she got sick and her activity level significantly decreased. She realized she could not ignore her diabetes any more. She resumed metformin, started actos and hated it for the weight gain stopped that and after numerous medication changes she is now on metformin glipizide acarbose and lantus. She states she takes her metformin and glipizide at 10 am and 10 pm and her acarbose before meals and lantus at night. Her diet is moderately high in carbohydrates. Current outpatient diabetes regimen: [...] adjustment of insulin regimen and DM medications. Dhaval had an appointment today to establish care in [facility] Endocrinology clinic. We will reschedule this for her as she states she would like to be followed here. We discussed treating hypoglycemia with a fast acting sugar such as life savers, juice or soda. We also discussed that the metformin and glipizide should be taken before a meal. She agrees to increase her walking to 3-4 times a week if OK with her diversified crops farmworker. The [place] Diabetes Association (ADA) and the Association for the Study of Diabetes (EASD) have released a position statement for a patient centered approach to management of hyperglycemiain type 2 diabetes. (Diabetes Care Volume November) [...] if HgbA1C if >9 combination therapy would be justified. Insulin therapy as first line treatment should be considered if the patient presents with significant hyperglycemic symptoms and/or has dramatically elevated plasma blood glucose> 300-350 or HgbA1C >10-12%. Since her Hgb [...] 8 gm carb ratio for each meal) single pointed operator diabetes care: Medications - Outpatient treatment regimen recommendations pending based on the hospital course. Monitoring - continue BG tid ac & hs Diet - low fat/low carb diet Exercise - weight-bearing exercise 30 min/day, as tolerated Thank you for allowing us to provide care for your patient * Consult Note - Jeff Feliciano MD - 03/29/2014 2:40 PM EDT Inpatient Cardiology Consult Note Date of Consultation: 03/29/2014 Admit Date: 03/29/2014 Place of Service: Inpatient Unit Responsible Attending: Gi Feliciano MD Reason for Consult: We are seeing Dhaval Yee at the request of Dr. Venegas for the evaluation of intermittent tachycardia. I have reviewed the available records, interviewed and examined the patient. Active Problem List: Active Hospital Problems Diagnosis ??? SVT (supraventricular tachycardia) ??? Diabetes mellitus ??? Atrial fibrillation Resolved Hospital Problems Diagnosis Date Resolved No resolved problems to display. History of Present Illness: Dhaval Yee is a 63 y.o. female admitted with [...] metoprolol and broke sinus during transfer to [facility]. Since arrival she has remained in sinus [...] Pertinent Medications: Current Facility-Administered Medications Ordered in Epic Medication Dose Route Frequency Provider Last Rate Last Dose ??? aspirin EC tablet 81 mg 81 mg Oral Daily Hector Cox MD 81 mg at 03/29/14 0800 ??? ibuprofen (ADVIL;MOTRIN) tablet 800 mg 800 mg Oral Q8H PRN Hector Cox MD ??? lisinopril (PRINIVIL;ZESTRIL) tablet 5 mg 5 mg Oral Daily Hector Cox MD 5 mg at [id number] ??? metoprolol (LOPRESSOR) pre-split tablet 37.5 mg 37.5 mg Oral Q6H [facility] Hector Cox MD 37.5 mg at 03/29/14 [...] injection 5,000 Units 5,000 Units Subcutaneous Q8H [facility] Hector Cox MD ??? [COMPLETED] magnesium sulfate 1g in dextrose 5% 100mL 1 g Intravenous Once Hector Cox MD1 g at 03/29/14 0454 ??? atorvastatin (LIPITOR) [...] 2-8 Units 2-8 Units Subcutaneous Q4H Hector Cr MD 8 Units at 03/29/14 0758 ??? [DISCONTINUED] simvastatin (ZOCOR) tablet 20 mg 20 mg Oral QPM eHctor Cox MD ??? [DISCONTINUED] DILTiazem (CARDIZEM) 125 mg in D5W 125 mL infusion 5 mg/hr Intravenous Continuous Hector Cox MD 5 mg/hr at 03/29/14 0615 [...] Interval 200 ms Preliminary QRS Duration 70 ms Preliminary Q-T Interval 416 ms Preliminary QTC Calculated (Bezet) 439 CXR: 03/29/2014 Lungs clear, no acute findings Assessment: Dhaval Yee is a 63 y.o. female admitted with symptomatic atrial fibrillation with RVR. By history she has also had a recurrent, adenosine responsive SVT since childhood that was quiescent for many years until about five years ago and then became more frequent. As she now has evidence of sympt omatic atrial fibrillation with elevated [id number] score of 4(age, sex, HTN, DM) she [...] be OSH records related to previous ED visits([facility]; she also indicates she has been evaluated by Dr. Hammond several years ago). Consult service will continue to follow patient. Provider: KATHLEEN Beard Provider#: [id number] Consult attending physician: Gi Feliciano MD Addendum I have personally interviewed and examined the patient and reviewed the available records 63 y.o. woman with DM, HTN, obesity, admitted with symptomatic rapid heart rhythm. Her history is consistent with a nodally dependent re-entry rhythm ; her ecg from [facility] appears to be coarse atrial fibrillation. [...] EP lab for ablation of SVT (which might have an impact in atrial fibrillation as well) I would note that she has a markedly enlarged left atrium and probably has sleep apnea on the basisof her symptoms She indicates that would like [...] in about 6-8 weeks JEFF FELICIANO MD * Miscellaneous - Provider, Scanning - 03/29/2014 6:01 AM EDT * Miscellaneous - Provider, Scanning - 03/29/2014 6:00 AM EDT documented in this encounter Plan of Treatment Not on file documented as of this encounter Procedures Procedure Name Priority Date/Time Associated Diagnosis Comments ECG SCAN 03/31/2014 2:06 PM EDT ANTIQUE FURNITURE RESTORER SCAN 03/31/2014 12:51 PM EDT POCT GLUCOSE Routine 03/30/2014 2:22 PM EDT POCT GLUCOSE Routine 03/30/2014 11:58 AM EDT POCT GLUCOSE Routine 03/30/2014 7:32 AM EDT HEMOGRAM Routine 03/30/2014 7:14 AM EDT DIFFERENTIAL, AUTOMATED Routine 03/30/2014 7:14 AM EDT APTT STAT 03/30/2014 7:14 AM EDT CBC (WITH DIFF) Routine 03/30/2014 7:14 AM EDT PHOSPHORUS Routine 03/30/2014 7:14 AM EDT MAGNESIUM Routine 03/30/2014 7:14 AM EDT BASIC METABOLIC PANEL Routine 03/30/2014 7:14 AM EDT EKG 12-LEAD Routine 03/30/2014 6:40 AM EDT SVT (supraventricular tachycardia) POCT GLUCOSE Routine 03/30/2014 3:47 AM EDT POCT GLUCOSE Routine 03/30/2014 12:08 AM EDT APTT Routine 03/29/2014 10:18 PM EDT POCT GLUCOSE Routine 03/29/2014 9:56 PM EDT POCT GLUCOSE Routine 03/29/2014 8:08 PM EDT POCT GLUCOSE Routine 03/29/2014 4:15 PM EDT APTT STAT 03/29/2014 3:56 PM EDT EKG 12-LEAD Routine 03/29/2014 1:03 PM EDT Atrial fibrillation POCT GLUCOSE Routine 03/29/2014 12:19 PM EDT ECHOCARDIOGRAM TRANSTHORACIC Routine 03/29/2014 11:38 AM EDT Atrial fibrillation POCT GLUCOSE Routine 03/29/2014 10:25 AM EDT EKG 12-LEAD Routine 03/29/2014 10:21 AM EDT Atrial fibrillation POCT GLUCOSE Routine 03/29/2014 7:56 AM EDT XR CHEST PA AND LATERAL Routine 03/29/2014 6:49 AM EDT POCT GLUCOSE Routine 03/29/2014 6:22 AM EDT EKG 12-LEAD STAT 03/29/2014 4:36 AM EDT Atrial fibrillation BMP W/FASTING GLUCOSE STAT 03/29/2014 3:19 AM EDT HEMOGRAM STAT 03/29/2014 3:19 AM EDT DIFFERENTIAL, AUTOMATED STAT 03/29/2014 3:19 AM EDT CARDIAC ENZYMES ([facility]/CGP) STAT 03/29/2014 3:19 AM EDT APTT STAT 03/29/2014 3:19 AM EDT PROTHROMBIN TIME STAT 03/29/2014 3:19 AM EDT CBC (WITH DIFF) STAT 03/29/2014 3:19 AM EDT TSH STAT 03/29/2014 3:19 AM EDT PHOSPHORUS STAT 03/29/2014 3:19 AM EDT MAGNESIUM STAT 03/29/2014 3:19 AM EDT HEMOGLOBIN A1C STAT 03/29/2014 3:19 AM EDT HEPATIC FUNCTION PANEL STAT 4 3:19 AM EDT LIPID PANEL (REFLEX DIRECT LDL) STAT 03/29/2014 3:19 AM EDT POCT GLUCOSE Routine 03/29/2014 3:06 AM EDT documented in this encounter Results * SCAN DOC: ECG (03/31/2014 2:06 PM EDT) Narrative 03/31/2014 2:08 PM EDT Procedure Note Provider, Scanning - 03/31/2014 2:06 PM EDT Scanning Provider MEDIA MGR SCAN EXT O RDR/RSLT * SCAN DOC: ANTIQUE FURNITURE RESTORER (03/31/2014 12:51 PM EDT) Anatomical Region Laterality Modality Other Narrative 03/31/2014 1:07 PM EDT Procedure Note Provider, Scanning - 03/31/2014 12:51 PM EDT Scanning Provider MEDIA MGR SCAN EXT O RDR/RSLT * (ABNORMAL) POCT Glucose (03/30/2014 2:22 PM EDT) [facility] Glucose, POC 291(H) 60 - 199 mg/dL [facility] Comment: Supplemental ranges: <140 mg/dL before meals <180 mg/dL all other times of the day Blood specimen (specimen) 03/30/2014 2:22 PM EDT 03/30/2014 2:22 PM EDT Cathie Venegas MD POINT OF CARE CHANCE T ORDERABLES Performing Organization Address [facility] Co de Phone Number BRADLEY LIZARRAGAIUM * (ABNORMAL) POCT Glucose (03/30/2014 11:58 AM EDT) Glucose, POC 266(H) 60 - 199 mg/dL CERNER MARIANENNIUM Comment: Supplemental ranges: <140 mg/dL before meals <180 mg/dL all other times of the day Blood specimen (specimen) 03/30/2014 11:58 AM EDT 03/30/2014 11:58 AM EDT Cathie Venegas MD POINT OF CARE CHANCE T ORDERABLES Performing Organization Address [facility] de Phone Number BRADLEY LIZARRAGAIUM * (ABNORMAL) POCT Glucose (03/30/2014 7:32 AM EDT) Glucose, POC 239(H) 60 - 199 mg/dL [facility] Comment: Supplemental ranges: <140 mg/dL before meals <180 mg/dL all other times of the day Blood specimen (specimen) 03/30/2014 7:32 AM EDT 03/30/2014 7:32 AM EDT Cathie Venegas MD POINT OF CARE CHANCE T ORDERABLES Performing Organization Address [facility] de Phone Number BRADLEY LIZARRAGAIUM * Differential, Automated (03/30/2014 7:14 AM EDT) Neutrophil % 52.8 % CERNER MILLENNIUM Neutrophil Absolute 4.82 1.50 - 6.30 x10(3)/mcL CERNER MILLENNIUM Lymph % 32.1 % CERNER MILLENNIUM Lymphocytes Abs 2.9 1.0 - 3.6 x10(3)/mcL CERNER MILLENNIUM Monocyte % 9.7 % CERNER MILLENNIUM Monocyte Abs 0.9 0.2 - 1.0 x10(3)/mcL CERNER MILLENNIUM Eos % 4.9 % CERNER MILLENNIUM Eosinophils Abs 0.4 0.0 - 0.5 x10(3)/mcL CERNER MILLENNIUM Basophil % 0.3 % CERNER MILLENNIUM Baso Absolute 0.0 0.0 - 0.2 x10(3)/mcL CERNER MILLENNIUM Immature Gran % 0.20 % CERN ER MILLENNIUM Comment: Immature granulocytes(IG's)percentage and absolute count will include metamyelocytes, myelocytes, and promyelocytes. Blood smears from CBCs yielding IG's will be scanned manually for concordance. If this scan disagrees with the automated IG or if promyelocytes are noted, a manual differential will be performed. Immature Gran Absolute 0.02 0.00 - 0.05 x10(3)/mcL CERNER MILLENNIUM Blood specimen (specimen) 03/30/2014 7:14 AM EDT 03/30/2014 7:25 AM EDT Narrative Resulting Agency Comment Spec In Lab Cathie Venegas MD HEMATOLOGY ORDERA BLES [facility] MILLENNIUM * (ABNORMAL) Hemogram (03/30/2014 7:14 AM EDT) White Blood Cell 9.1 4.0 - 10.0 x10(3)/mc L CERNER MILLENNIUM Red Blood Cell 4.50 3.93 - 5.22 x10(6)/mc L CERNER MILLENNIUM Hemoglobin 13.1 11.2 - 15.7 gm/dL CERNER MILLENNIUM Hematocrit 40.2 34.0 - 45.0 % CERNER MILLENNIUM Mean Cell Volume 89.3 79.0 - 94.0 fL CERNER MILLENNIUM Mean Cell Hemoglobin 29.1 26.6 - 32.2 pg CERNER MILLENNIUM Mean Cell Hemoglobin Concentration 32.6 32.0 - 36.5 gm/dL CERNER MILLENNIUM Platelet 386(H) 145 - 370 x10(3)/mc L CERNER MILLENNIUM RDW Standard Deviation 42.0 35.0 - 46.0 fL CERNER MILLENNIUM RDW coefficient of variation 13.0 10.9 - 14.4 % CERNER MILLENNIUM Mean Platelet Volume 10.4 9.0 - 12.0 fL CERNER MILLENNIUM Blood specimen (specimen) 03/30/2014 7:14 AM EDT 03/30/2014 7:25 AM EDT Narrative Resulting Agency Comment Spec In Lab Cathie Venegas MD HEMATOLOGY ORDERA BLES Performing Organization Address [facility] Co de Phone Number BRADLEY HESTER * (ABNORMAL) APTT (03/30/2014 7:14 AM EDT) Partial Thromboplastin Time 61(H) 25 - 35 sec CERWYATT FONSECAENNIUM Comment: Recommended therapeutic PTT range for full dose unfractionated heparin is 80-114 seconds. Blood specimen (specimen) 03/30/2014 7:14 AM EDT 03/30/2014 7:25 AM EDT Narrative Resulting Agency Comment Spec In Lab Cathie Venegas MD HEMATOLOGY ORDERA BLES Performing Organization Address [facility] de Phone Number BRADLEY LIZARRAGAIUM * Phosphorus (03/30/2014 7:14 AM EDT) Phosphorus 3.5 2.5 - 4.5 mg/dL [facility] Blood specimen (specimen) 03/30/2014 7:14 AM EDT 03/30/2014 7:25 AM EDT Narrative Resulting Agency Comment Spec In Lab Cathie Venegas MD CHEMISTRY ORDERAB LES Performing Organization Address [facility] de Phone Number BRADLEY LIZARRAGAIUM * Magnesium (03/30/2014 7:14 AM EDT) Magnesium 0.74 0.69 - 1.07 mmol/L BRADLEY LIZARRAGAIUM Blood specimen (specimen) 03/30/2014 7:14 AM EDT 03/30/2014 7:25 AM EDT Narrative Resulting Agency Comment Spec In Lab Cathie Venegas MD CHEMISTRY ORDERAB LES Performing Organization Address [facility] Co de Phone Number BRADLEY LIZARRAGAIUM * (ABNORMAL) Basic Metabolic Panel (non-fasting) (03/30/2014 7:14 AM EDT) Glucose 231(H) 60 - 199 mg/dL CERNER MILLENNIUM Comment:Diabetes: >=200 mg/d L plus symptoms Blood Urea Nitrogen 15 8 - 18 mg/dL CERNER MILLENNIUM Creatinine 0.62(L) 0.70 - 1.20 mg/dL CERNER MILLENNIUM Comment: Please note that the pediatric reference intervals supplied above were not validated at [facility]. Results from pediatric patients should be interpreted in conjunction to the patient's age, height and muscle mass. Sodium 140 135 - 145 mmol/L CERNER MILLENNIUM Potassium 4.1 3.5 - 5.0 mmol/L CERNER MILLENNIUM Comment: Please note: ??Patients with WBC >100,000 may have falsely elevated Potassium levels. ??For accurate Potassium quantification in these patients send serum separator tube (gold top) for subsequent determinations. ??Contact the Clinical Chemistry Laboratory if there are any questions. Chloride 103 98 - 107 mmol/L CERNER MILLENNIUM Carbon Dioxide 23 22 - 31 mmol/L CERNER MILLENNIUM Anion Gap 14 5 - 15 mmol/L CERNER MILLENNIUM Calcium 9.1 8.5 - 10.5 mg/dL CERNER MILLENNIUM Est Glomerular Filtration Rate >60 >=60 CERNER MILLENNIUM Comment: This estimated GFR (eGFR) value was calculated using the MDRD equation which has been validated on patients between the ages of 18 and 70. The MDRD should not be used to assess kidney function in patients < 18 years of age or in patients with extremes of body mass, or in patients with acute kidney failure. This value should be multiplied by 1.2 for patients. For further information please copy and paste the following links into your internet browser. [email or web address] Blood specimen (specimen) 03/30/2014 7:14 AM EDT 03/30/2014 7:25 AM EDT Narrative Resulting Agency Comment Spec In Lab Cathie Venegas MD CHEMISTRY ORDERAB LES BRADLEY LIZARRAGAIUM * EKG 12 Lead (03/30/2014 6:40 AM EDT) Ventricular rate 63 BPM MUSE SYSTEM Atrial Rate 63 BPM MUSE SYSTEM P-R Interval 200 ms MUSE SYSTEM QRS Duration 74 ms MUSE SYSTEM Q-T Interval 420 ms MUSE SYSTEM QTC Calculated (Bezet) 429 ms MUSE SYSTEM Calculated P [place] 32 degrees MUSE SYSTEM Calculated R [place] 11 degrees MUSE SYSTEM Calculated T [place] 30 degrees MUSE SYSTEM INTERPRETATION Normal sinus rhythm Low voltage QRS Borderline ECG When compared with ECG of 29-MAR-2014 13:03, No significant change was found Confirmed by MD GONZALEZ ALAN ([id number]) on 03/31/2014 5:37:35 AM MUSE SYSTEM 03/30/2014 6:40 AM EDT 03/31/2014 5:37 AM EDT Cathie Venegas MD ECG ORDERABLES Performing Organization Address [facility] Phone Number MUSE SYSTEM * POCT Glucose (03/30/2014 3:47 AM EDT) Glucose, POC 154 60 - 199 mg/dL [facility] Comment: Supplemental ranges: <140 mg/dL before meals <180 mg/dL all other times of the day Blood specimen (specimen) 03/30/2014 3:47 AM EDT 03/30/2014 3:47 AM EDT Cathie Venegas MD POINT OF CARE CHANCE T ORDERABLES Performing Organization Address [facility] Phone Number [facility] [employer] [facility] * POCT Glucose (03/30/2014 12:08 AM EDT) Glucose, POC 194 60 - 199 mg/dL [facility] Comment: Supplemental ranges: <140 mg/dL before meals <180 mg/dL all other times of the day Blood specimen (specimen) 03/30/2014 12:08 AM EDT 03/30/2014 12:08 AM EDT Cathie Venegas MD POINT OF CARE CHANCE T ORDERABLES Performing Organization Address [facility] Phone Number [facility] * (ABNORMAL) APTT (03/29/2014 10:18 PM EDT) Partial Thromboplastin Time >160(Crit ical) 25 - 35 sec [facility] Comment: Called by: AUTUMN, Read back by: TOMAS KAYE, Date/Time:03/29/14 23:36. Recommended therapeutic PTT range for full dose unfractionated heparin is 80-114 seconds. Blood specimen (specimen) 03/29/2014 10:18 PM EDT 03/29/2014 11:02 PM EDT Narrative Resulting Agency Comment Spec In Lab Cathie Venegas MD HEMATOLOGY ORDERA BLES Performing Organization Address [facility] Phone Number [facility] * (ABNORMAL) POCT Glucose (03/29/2014 9:56 PM EDT) Glucose, POC 275(H) 60 - 199 mg/dL [facility] Comment: Supplemental ranges: <140 mg/dL before meals <180 mg/dL all other times of the day Blood specimen (specimen) 03/29/2014 9:56 PM EDT 03/29/2014 9:56 PM EDT Cathie Venegas MD POINT OF CARE CHANCE T ORDERABLES Performing Organization Address [facility] Phone Number [facility] * (ABNORMAL) POCT Glucose (03/29/2014 8:08 PM EDT) Glucose, POC 297(H) 60 - 199 mg/dL [facility] Comment: Supplemental ranges: <140 mg/dL before meals <180 mg/dL all other times of the day Blood specimen (specimen) 03/29/2014 8:08 PM EDT 03/29/2014 8:08 PM EDT Cathie Venegas MD POINT OF CARE CHANCE T ORDERABLES Performing Organization Address [facility] de Phone Number [facility] * (ABNORMAL) POCT Glucose (03/29/2014 4:15 PM EDT) Glucose, POC 273(H) 60 - 199 mg/dL [facility] Comment: Supplemental ranges: <140 mg/dL before meals <180 mg/dL all other times of the day Blood specimen (specimen) 03/29/2014 4:15 PM EDT 03/29/2014 4:15 PM EDT Cathie Venegas MD POINT OF CARE CHANCE T ORDERABLES Performing Organization Address [facility] Co de Phone Number [facility] * (ABNORMAL) APTT (03/29/2014 3:56 PM EDT) Pathologist [facility] Partial Thromboplastin Time 81(H) 25 - 35 sec [facility] Comment: Recommended therapeutic PTT range for full dose unfractionated heparin is 80-114 seconds. Blood specimen (specimen) 03/29/2014 3:56 PM EDT 03/29/2014 4:31 PM EDT Narrative Resulting Agency Comment Spec In Lab Cathie Venegas MD HEMATOLOGY ORDERA BLES Performing Organization Address [facility] Phone Number [facility] * EKG 12 Lead (03/29/2014 1:03 PM EDT) Ventricular rate 67 BPM MUSE SYSTEM Atrial Rate 67 BPM MUSE SYSTEM P-R Interval 200 ms MUSE SYSTEM QRS Duration 70 ms MUSE SYSTEM Q-T Interval 416 ms MUSE SYSTEM QTC Calculated (Bezet) 439 ms MUSE SYSTEM Calculated P [place] 26 degrees MUSE SYSTEM Calculated R [place] 15 degrees MUSE SYSTEM Calculated T [place] 21 degrees MUSE SYSTEM INTERPRETATION Normal sinus rhythm Normal ECG When compared with ECG of 29-MAR-2014 10:21, (unconfirmed) No significant change was found Confirmed by MD CARLOS, NIC ([id number]) on 03/29/2014 9:16:12 PM MUSE SYSTEM 03/29/2014 1:03 PM EDT 03/29/2014 9:16 PM EDT Cathie Venegas MD ECG ORDERABLES MUSE SYSTEM * POCT Glucose (03/29/2014 12:19 PM EDT) Glucose, POC 66 60 - 199 mg/dL [facility] Comment: Supplemental ranges: <140 mg/dL before meals <180 mg/dL all other times of the day Blood specimen (specimen) 03/29/2014 12:19 PM EDT 03/29/2014 12:19 PM EDT Cathie Venegas MD POINT OF CARE CHANCE T ORDERABLES Performing Organization Address [facility] Co de Phone Number [facility] * Echocardiogram Transthoracic(Leb) (03/29/2014 11:38 AM EDT) EF 74 HEARTLAB SYSTEM Anatomical Region Laterality Modality Other 03/29/2014 Narrative 03/29/2014 11:53 AM EDT Procedure: ? Transthoracic Echocardiogram Patient: ? YEE DHAVAL O ?(Age): 1950(63) Med Rec#: ?[id number] ? Sex: ?F ? Site Loc: ?[facility] ? Ht / Wt: ??170(cm)/94(kg) Pt. Loc: ? Adult Floor ?BSA: ?2.11 Study Date: ?03/29/2014 ? Pt. Type: Inpatient Tape: ? Referring: Cathie Venegas ?? Referring: CELINA DE LEON A Thread Winder Automatic: Mariama Spicer Diagnosis:CPT Code(s): ??Echo Full (99432), ??Spectral Doppler (83349), Color Doppler (24938), ??Optison (85131FS), Indication(s): ??Atrial fibrillation Rhythm: HR ?BP ?131/76 ?? SUMMARY: 1. The left ventricular chamber size is normal. There is mild septal hypertrophy of the left ventricle. ??There are no left ventricular segmental wall [...] is no hemodynamically significant valve disease. 5. See remainder of report for additional findings. FINDINGS: Study Quality ?Technically limited Left Ventricle ?The left ventricular chamber size is normal. ?There is mild septal hypertrophy of the left ventricle. ?No ventricular septal defect is visualized. ?There is normal global left ventricular systolic function. ?The quantitative left ventricular ejection fraction by biplane Parry's method is 74%. ?There are no left ventricular segmental wall motion abnormalities. ?Doppler assessment is consistent with elevated left sided filling pressure. Left Atrium ?The left atrium is severely dilated.(44 ml/m2) ?No atrial septal defect is visualized. Right Ventricle ?Right ventricular chamber size, wall thickness, and systolic function are within normal limits. Right Atrium ?The right atrium is normal in size. Aortic Valve ?The aortic valve is tricuspid. ?The aortic valve leaflets are mildly thickened. ?Systolic excursion of the aortic valve is normal. ?There is no evidence of aortic valve stenosis. ?There is a trace of aortic regurgitation present. Mitral Valve ?The mitral valve appears normal in structure and function. ?There is no evidence of mitral valve leaflet prolapse. ?There is trace mitral regurgitation present. Tricuspid Valve ?The tricuspid valve appears normal in structure and function. ?There is trace tricuspid regurgitation present. Pulmonic Valve ?The pulmonic valve appears normal in structure and function. Pericardium ?The pericardium appears normal and there is no evidence of a pericardial effusion. Aorta ?The aortic root is normal in size. ?The ascending aorta is normal in size. ?There is no evidence of coarctation of the aorta. Pulmonary Artery ?The main pulmonary artery appears normal. Venous ?The inferior vena cava appears normal in size. ?There is a greater than 50% respiratory change in the inferior vena cava dimension. Misc ?Two-dimensional echo, spectral Doppler and color Doppler performed. ?Optison contrast (one 3 ml vial) was used to enhance endocardial definition. Excess contrast was discarded. Wall Motion: Segment Name ?Rest ? Base-Anteroseptal ?? Normal ? Base-Anterior ? Normal ? Base-Anterolateral ??Normal ? Base-Posterolateral Normal ? Base-Inferior ? Normal ? Base-Inferoseptal ?? Normal ? Mid-Anteroseptal ?Normal ? Mid-Anterior ?Normal ? Mid-Anterolateral ?? Normal ? Mid-Posterolateral ??Normal ? Mid-Inferior ?Normal ? Mid-Inferoseptal ?Normal ? [place]-Septal ? Normal ? [place]-Anterior ? Normal ? [place]-Lateral ?Normal ? [place]-Inferior ? Normal ? [place]-Tip ?Normal ? Chambers ?Value ?Units (Range) ? [...] ?mmHg ? This report has been electronically signed by: Sunil Barriga MD ? 03/29/2014 11:53:09 Images reviewed and interpretation verified [facility] Cardiac Ultrasound Laboratory Procedure Note Sunil Barriga MD - 03/29/2014 Procedure: Transthoracic Echocardiogram Patient: NAKIA Calix DOB(Age): 1950(63) Med Rec#: [id number] Sex: F Site Loc: [facility] Ht / Wt: 170(cm)/94(kg) Pt. Loc: Adult Floor BSA: 2.11 Study Date: 03/29/2014 Pt. Type: Inpatient Tape: Referring: Cathie Venegas Referring: CELINA DE LEON A Thread Winder Automatic: Mariama Spicer Diagnosis:CPT Code(s): Echo Full (57270), Spectral Doppler (74701), Color Doppler (89295), Optison ([id number]), Indication(s): Atrial fibrillation Rhythm: HR BP 131/76 [...] is no hemodynamically significant valve disease. 5. See remainder of report for additional findings. FINDINGS: Study Quality Technically limited Left Ventricle The left ventricular chamber size is normal. There is mild septal hypertrophy of the left ventricle. No ventricular septal defect is visualized. There is normal global left ventricular systolic function. The quantitative left ventricular ejection fraction by biplane Parry's method is 74%. There are no left ventricular segmental wall motion abnormalities. Doppler assessment is consistent with elevated left sided filling pressure. Left Atrium The left atrium is severely dilated.(44 ml/m2) No atrial septal defect is visualized. Right Ventricle Right ventricular chamber size, wall thickness, and systolic function are within normal limits. Right Atrium The right atrium is normal in size. Aortic Valve The aortic valve is tricuspid. The aortic valve leaflets are mildly thickened. Systolic excursion of the aortic valve is normal. There is no evidence of aortic valve stenosis. There is a trace of aortic regurgitation present. Mitral Valve The mitral valve appears normal in structure and function. There is no evidence of mitral valve leaflet prolapse. There is trace mitral regurgitation present. Tricuspid Valve The tricuspid valve appears normal in structure and function. There is trace tricuspid regurgitation present. Pulmonic Valve The pulmonic valve appears normal in structure and function. Pericardium The pericardium appears normal and there is no evidence of a pericardial effusion. Aorta The aortic root is normal in size. The ascending aorta is normal in size. There is no evidence of coarctation of the aorta. Pulmonary Artery The main pulmonary artery appears normal. Venous The inferior vena cava appears normal in size. There is a greater than 50% respiratory change in the inferior vena cava dimension. [facility] Two-dimensional echo, spectral Doppler and color Doppler performed. Optison contrast (one 3 ml vial) was used to enhance endocardial definition. Excess contrast was discarded. Wall Motion: Segment Name Rest Base-Anteroseptal Normal Base-Anterior Normal Base-Anterolateral Normal Base-Posterolateral Normal Base-Inferior Normal Base-Inferoseptal Normal Mid-Anteroseptal Normal Mid-Anterior Normal Mid-Anterolateral Normal Mid-Posterolateral Normal Mid-Inferior Normal Mid-Inferoseptal Normal [place]-Septal Normal [place]-Anterior Normal [place]-Lateral Normal [place]-Inferior Normal [place]-Tip Normal Chambers Value Units (Range) EF Bi-p [...] 3 mmHg This report has been electronically signed by: Sunil Barriga MD 03/29/2014 11:53:09 Images reviewed and interpretation verified [facility] Cardiac Ultrasound Laboratory Cathie Venegas MD ECHO ORDERABLES * POCT Glucose (03/29/2014 10:25 AM EDT) Pathologist [facility] Glucose, POC 159 60 - 199 mg/dL [facility] Comment: Supplemental ranges: <140 mg/dL before meals <180 mg/dL all other times of the day Blood specimen (specimen) 03/29/2014 10:25 AM EDT 03/29/2014 10:25 AM EDT Cathie Venegas MD POINT OF CARE CHANCE T ORDERABLES [facility] * EKG 12 Lead (03/29/2014 10:21 AM EDT) Ventricular rate 69 BPM MUSE SYSTEM Atrial Rate 69 BPM MUSE SYSTEM P-R Interval 176 ms MUSE SYSTEM QRS Duration 74 ms MUSE SYSTEM Q-T Interval 410 ms MUSE SYSTEM QTC Calculated (Bezet) 439 ms MUSE SYSTEM Calculated P [place] 8 degrees MUSE SYSTEM Calculated R [place] 20 degrees MUSE SYSTEM Calculated T [place] 26 degrees MUSE SYSTEM INTERPRETATION Normal sinus rhythm Normal ECG When compared with ECG of 29-MAR-2014 04:36, Premature atrial complexes are no longer Present Confirmed by MD ANAYELI, USHA ([id number]) on 03/29/2014 2:33:09 PM MUSE SYSTEM 03/29/2014 10:2 1 AM EDT 03/29/2014 2:33 PM EDT Cathie Venegas MD ECG ORDERABLES Performing Organization Address [facility] Co de Phone Number MUSE SYSTEM * (ABNORMAL) POCT Glucose (03/29/2014 7:56 AM EDT) Glucose, POC 345(H) 60 - 199 mg/dL [facility] Comment: Supplemental ranges: <140 mg/dL before meals <180 mg/dL all other times of the day Blood specimen (specimen) 03/29/2014 7:56 AM EDT 03/29/2014 7:56 AM EDT Cathie Venegas MD POINT OF CARE CHANCE T ORDERABLES Performing Organization Address [facility] de Phone Number [facility] * XR chest routine PA & lateral (03/29/2014 6:49 AM EDT) Anatomical Region Laterality Modality Chest N/A Radiographic Shawna ging 03/29/2014 6:49 AM EDT Narrative 03/29/2014 7:44 AM EDT Examination CHEST ROUTINE 2 VIEWS Clinical History 63 yo female with AFIB Comparison None Technique AP and lateral chest radiograph Findings The cardiomediastinal silhouette and pulmonary vasculature are normal. The lungs are clear without focal consolidation. No pleural effusion or pneumothorax. Bones are unremarkable. Impression No acute cardiopulmonary process. Procedure Note Marlin Keller MD - 03/29/2014 Examination CHEST ROUTINE 2 VIEWS Clinical History 63 yo female with AFIB Comparison None Technique AP and lateral chest radiograph Findings The cardiomediastinal silhouette and pulmonary vasculature are normal. The lungs are clear without focal consolidation. No pleural effusion or pneumothorax. Bones are unremarkable. Impression No acute cardiopulmonary process. Cathie Venegas MD IMG DX ORDERABLES * (ABNORMAL) POCT Glucose (03/29/2014 6:22 AM EDT) [facility] Glucose, POC 373(H) 60 - 199 mg/dL [facility] Comment: Supplemental ranges: <140 mg/dL before meals <180 mg/dL all other times of the day Blood specimen (specimen) 03/29/2014 6:22 AM EDT 03/29/2014 6:22 AM EDT Cathie Venegas MD POINT OF CARE CHANCE T ORDERABLES Performing Organization Address [facility] Phone Number [facility] * EKG 12 Lead (03/29/2014 4:36 AM EDT) [facility] Ventricular rate 75 BPM MUSE SYSTEM Atrial Rate 75 BPM MUSE SYSTEM P-R Interval 196 ms MUSE SYSTEM QRS Duration 68 ms MUSE SYSTEM Q-T Interval 388 ms MUSE SYSTEM QTC Calculated (Bezet) 433 ms MUSE SYSTEM Calculated P [place] -21 degrees MUSE SYSTEM Calculated R [place] 31 degrees MUSE SYSTEM Calculated T [place] 14 degrees MUSE SYSTEM INTERPRETATION Sinus rhythm with Premature atrial complexes Low voltage QRS Borderline ECG No previous ECGs available Confirmed by MD ANAYELI, USHA ([id number]) on 03/29/2014 8:23:52 AM MUSE SYSTEM 03/29/2014 4:36 AM EDT 03/29/2014 8:23 AM EDT Cathie Venegas MD ECG ORDERABLES Performing Organization Address [facility] Phone Number MUSE SYSTEM * Cardiac Enzymes (03/29/2014 3:19 AM EDT) [facility] Troponin-T <0.03 <=0.03 ng/mL [facility] Comment: 0.03 ng/mL: Represents the 99th percentile upper reference limit for normals. >0.03 ng/mL: Elevated cardiac troponin T level indicative of myocardial damage. Diagnosis of acute, evolving or recent PR requires a typical rise and gradual fall of cTnT with at least ONE of the following: a) Ischemic symptoms b) Development of pathologic Q waves on the ECG c) ECG changes indicative of eschemia (S-T segment elevation/depression) d) Coronary artery intervention Serial bloods should be obtained for testing on admission, at 6 to 9 hrs and again at 12 to 24 hrs if earlier samples are negative and the clinical index of suspicion is high. Reference: [Myocardial infarction redefined? a consensus document of the Joint Society of Cardiology/[place] College [employer] Committee for the redefinition of myocardial infarction. ??Journal of the [place] College of [employer]iology 2000; 36: 959-969] Creatine Kinase 77 0 - 160 unit/L CERNER MILLENNIUM Blood specimen (specimen) 03/29/2014 3:19 AM EDT 03/29/2014 3:27 AM EDT Narrative Resulting Agency Comment Spec In Lab Cathie Venegas MD CHEMISTRY ORDERAB LES CERNER MILLENNIUM * (ABNORMAL) Differential, Automated (03/29/2014 3:19 AM EDT) Neutrophil % 74.7 % CERNER MILLENNIUM Neutrophil Absolute 6.50(H) 1.50 - 6.30 x10(3)/mc L CERNER MILLENNIUM Lymph % 16.6 % CERNER MILLENNIUM Lymphocytes Abs 1.4 1.0 - 3.6 x10(3)/mc L CERNER MILLENNIUM Monocyte % 7.3 % CERNER MILLENNIUM Monocyte Abs 0.6 0.2 - 1.0 x10(3)/mc L CERNER MILLENNIUM Eos % 1.0 % CERNER MILLENNIUM Eosinophils Abs 0.1 0.0 - 0.5 x10(3)/mc L CERNER MILLENNIUM Basophil % 0.2 % CERNER MILLENNIUM Baso Absolute 0.0 0.0 - 0.2 x10(3)/mc L CERNER MILLENNIUM Immature Gran % 0.20 % CERN ER MILLENNIUM Comment: Immature granulocytes(IG's)percentage and absolute count will include metamyelocytes, myelocytes, and promyelocytes. Blood smears from CBCs yielding IG's will be scanned manually for concordance. If this scan disagrees with the automated IG or if promyelocytes are noted, a manual differential will be performed. Immature Gran Absolute 0.02 0.00 - 0.05 x10(3)/mc L CERNER MILLENNIUM Blood specimen (specimen) 03/29/2014 3:19 AM EDT 03/29/2014 3:25 AM EDT Narrative Resulting Agency Comment Spec In Lab Cathie Venegas MD HEMATOLOGY ORDERA BLES Performing Organization Address [facility] Co de Phone Number CERNER MILLENNIUM * (ABNORMAL) Hemogram (03/29/2014 3:19 AM EDT) White Blood Cell 8.7 4.0 - 10.0 x10(3)/mc L CERNER MILLENNIUM Red Blood Cell 4.46 3.93 - 5.22 x10(6)/mc L CERNER MILLENNIUM Hemoglobin 12.8 11.2 - 15.7 gm/dL CERNER MILLENNIUM Hematocrit 39.4 34.0 - 45.0 % CERNER MILLENNIUM Mean Cell Volume 88.3 79.0 - 94.0 fL CERNER MILLENNIUM Mean Cell Hemoglobin 28.7 26.6 - 32.2 pg CERNER MILLENNIUM Mean Cell Hemoglobin Concentration 32.5 32.0 - 36.5 gm/dL CERNER MILLENNIUM Platelet 407(H) 145 - 370 x10(3)/mc L CERNER MILLENNIUM RDW Standard Deviation 41.2 35.0 - 46.0 fL CERNER MILLENNIUM RDW coefficient of variation 12.9 10.9 - 14.4 % CERNER MILLENNIUM Mean Platelet Volume 10.2 9.0 - 12.0 fL CERNER MILLENNIUM Blood specimen (specimen) 03/29/2014 3:19 AM EDT 03/29/2014 3:25 AM EDT Narrative Resulting Agency Comment Spec In Lab Cathie Venegas MD HEMATOLOGY ORDERA BLES Performing Organization Address [facility]/ZIP Co de Phone Number CERNER MILLENNIUM * (ABNORMAL) Hemoglobin A1c (03/29/2014 3:19 AM EDT) Hemoglobin A1c 10.4(H) <=5.6 % CERNE R MILLENNIUM Comment: Reference Range: 4.3 - 5.6% 5.7 - 6.4% - Increased Risk of Developing Diabetes Mellitus 6.5% - Consistent with diagnosis of Diabetes Mellitus In the absence of hyperglycemia (i.e. plasma glucose > 200 mg/dL) or classic symptoms of hyperglycemia a repeat measurement of HbA1c should be performed on a separate sample to confirm the diagnosis. Diagnosis and Classification of Diabetes Mellitus, Diabetes Care 2013; 36: Suppl. 1, S67-42 Estimated Average Glucose 252 mg/dL [facility] Comment: eAG equivalents for HbA1c percentages: HbA1c(%) ?eAG(mg/dL) 6.0 ?126 6.5 ?140 7.0 ?154 7.5 ?169 8.0 ?183 8.5 ?197 9.0 ?212 9.5 ?226 10.0 ? 240 Limitations: The eAG calculation has not been validated on women, individuals below 18 years old and above 70 years old, and individuals with hemoglobinopathies. Additional resources are available on the ADA website: http://[email or web address].com/DHMCadacalc Mike NGUYEN, Jacqueline J, Kadi R, et al. ??Translating the A1C assay into estimated average glucose values. ??Diabetes Care 2008:31(8):8241-3710. Blood specimen (specimen) 03/29/2014 3:19 AM EDT 03/29/2014 3:25 AM EDT Narrative Resulting Agency Comment Spec In Lab Cathie Venegas MD CHEMISTRY ORDERAB LES [facility] * Lipid panel (fasting) (03/29/2014 3:19 AM EDT) Cholesterol, Total 124 <=199 mg/dL CERNER MILLENNIUM Comment: Recommendations of the NCEP Adult Treatment Panel for the following risk cutoff thresholds for the [place] population: Desirable: <200 mg/dL Borderline High: 200-239 mg/dL High: > or = 240 mg/dL Triglyceride 102 <=149 mg/dL CERNER MILLENNIUM Comment: Reference Range: Normal triglycerides: ??<150 mg/dL Borderline high: ??150-199 mg/dL High: ??200-499 mg/dL Very high: ??>hh=614 mg/dL WAYNE 2001; 285(19):0754-2125 HDL Cholesterol 56 >=40 mg/dL CER NER MILLENNIUM Comment: Reference range: ??Low HDL: ?? < 40 mg/dL ??Normal: ?40-60 mg/dL ??Desirable: > 60 mg/dL WAYNE 2001; 285(19):8820-0372 LDL Cholesterol 48 <=99 mg/dL CER NER MILLENNIUM Comment: Reference range: ?? Optimal: ?<100 mg/dL ?? Near Optimal/Above Optimal: ?? 100-129 mg/dL ?? Borderline high: ?130-159 mg/dL ?? High: ? 160-189 mg/dL ?? Very high: ?>lq=949 mg/dL WAYNE 2001: 285(19):0747-3691 Cholesterol/HDL Ratio 2.2 ratio CERNER MILLENNIUM Comment: A Cholesterol to HDL ratio below 4:1 is desirable. ??Studies suggest that increased CAD risk occurs at ratios above 5 for females and above 6 for men. ? [place] Heart Association ??(http://www.americanheart.org) ? Laura Int Med, 1994; 121:641 ? AM J Med, 1998; 105(1A):48S Blood specimen (specimen) 03/29/2014 3:19 AM EDT 03/29/2014 3:25 AM EDT Narrative Resulting Agency Comment Spec In Lab Cathie Venegas MD CHEMISTRY ORDERAB LES Performing Organization Address [facility] Co de Phone Number BRADLEY FONSECAENNIUM * (ABNORMAL) Hepatic Function Panel (03/29/2014 3:19 AM EDT) Protein, Total 6.9 6.4 - 8.3 gm/dL CERNER MILLENNIUM Albumin 3.8 3.2 - 5.2 gm/dL CERNER MILLENNIUM Aspartate Aminotransferase 15 0 - 30 unit/L CERNER MILLENNIUM Alanine Aminotransferase 16 0 - 30 unit/L CERNER MILLENNIUM Alkaline Phosphatase 47 40 - 104 unit/L CERNER MILLENNIUM Bilirubin, Total <0.2(L) 0.2 - 1.3 mg/dL CERNER MILLENNIUM Bilirubin, Direct <0.1 0.0 - 0.3 mg/dL CERNER MILLENNIUM Blood specimen (specimen) 03/29/2014 3:19 AM EDT 03/29/2014 3:25 AM EDT Narrative Resulting Agency Comment Spec In Lab Cathie Venegas MD CHEMISTRY ORDERAB LES Performing Organization Address [facility] de Phone Number BRADLEY FONSECAENNIUM * TSH (03/29/2014 3:19 AM EDT) Thyroid Stimulating Hormone 0.62 0.27 - 4.20 mcIU/mL CERNER MILLENNIUM Blood specimen (specimen) 03/29/2014 3:19 AM EDT 03/29/2014 3:25 AM EDT Narrative Resulting Agency Comment Spec In Lab Cathie Venegas MD CHEMISTRY ORDERAB LES Performing Organization Address [facility] Co de Phone Number BRADLEY FONSECAENNIUM * APTT (03/29/2014 3:19 AM EDT) Partial Thromboplastin Time 27 25 - 35 sec CERNER MILLENNIUM Comment: Recommended therapeutic PTT range for full dose unfractionated heparin is 80-114 seconds. Blood specimen (specimen) 03/29/2014 3:19 AM EDT 03/29/2014 3:25 AM EDT Narrative Resulting Agency Comment Spec In Lab Cathie Venegas MD HEMATOLOGY ORDERA BLES Performing Organization Address [facility] de Phone Number BRADLEY HESTER * Prothrombin Time (03/29/2014 3:19 AM EDT) Prothrombin Time 12.7 12.5 - 15.5 sec CERWYATT FONSECAENNIUM Comment: [facility] Transfusion Committee Guidelines: INR less than 2.0, PTT less than OR equal to 43.5 seconds, or Fibrinogen greater than or equal to 100 mg/dl indicate adequate procoagulant activity for hemostasis in patients without underlying bleeding disorders. International Normalization Ratio 0.9 0.9 - 1.1 CERWYATT FONSECAENNIUM Blood specimen (specimen) 03/29/2014 3:19 AM EDT 03/29/2014 3:25 AM EDT Narrative Resulting Agency Comment Spec In Lab Cathie Venegas MD HEMATOLOGY ORDERA BLES Performing Organization Address [facility] Phone Number BRADLEY HESTER * Phosphorus (03/29/2014 3:19 AM EDT) Phosphorus 2.6 2.5 - 4.5 mg/dL CERWYATT FONSECAENNIUM Blood specimen (specimen) 03/29/2014 3:19 AM EDT 03/29/2014 3:25 AM EDT Narrative Resulting Agency Comment Spec In Lab Cathie Venegas MD CHEMISTRY ORDERAB LES Performing Organization Address [facility] de Phone Number BRADLEY HESTER * (ABNORMAL) Magnesium (03/29/2014 3:19 AM EDT) Magnesium 0.66(L) 0.69 - 1.07 mmol/L BRADLEY FONSECAENNIUM Blood specimen (specimen) 03/29/2014 3:19 AM EDT 03/29/2014 3:25 AM EDT Narrative Resulting Agency Comment Spec In Lab Cathie Venegas MD CHEMISTRY ORDERAB LES BRADLEY HESTER * (ABNORMAL) BMP w/fasting Glucose (03/29/2014 3:19 AM EDT) Glucose Fasting 416(H) 65 - 99 mg/dL CERNER MILLENNIUM Comment: ?Fasting* Glucose Interpretive Criteria Normal ?65-99 [...] of Diabetes Mellitus, Position Statement from the [place] Diabetes Association. ??Diabetes Care, Volume 33, Supplement 1, Jun 2009 Blood Urea Nitrogen 23(H) 8 - 18 mg/dL CERNER MILLENNIUM Creatinine 0.74 0.70 - 1.20 mg/dL CERNER MILLENNIUM Comment: Please note that the pediatric reference intervals supplied above were not validated at [facility]. Results from pediatric patients should be interpreted in conjunction to the patient's age, height and muscle mass. Sodium 138 135 - 145 mmol/L CERNER MILLENNIUM Potassium 4.8 3.5 - 5.0 mmol/L CERNER MILLENNIUM Comment: Please note: ??Patients with WBC >100,000 may have falsely elevated Potassium levels. ??For accurate Potassium quantification in these patients send serum separator tube (gold top) for subsequent determinations. ??Contact the Clinical Chemistry Laboratory if there are any questions. Chloride 103 98 - 107 mmol/L CERNER MILLENNIUM Carbon Dioxide 22 22 - 31 mmol/L CERNER MILLENNIUM Anion Gap 13 5 - 15 mmol/L CERNER MILLENNIUM Calcium 8.9 8.5 - 10.5 mg/dL CERNER MILLENNIUM Est Glomerular Filtration Rate >60 >=60 CERNER MILLENNIUM Comment: This estimated GFR (eGFR) value was calculated using the MDRD equation which has been validated on patients between the ages of 18 and 70. The MDRD should not be used to assess kidney function in patients < 18 years of age or in patients with extremes of body mass, or in patients with acute kidney failure. This value should be multiplied by 1.2 for patients. For further information please copy and paste the following links into your internet browser. [email or web address]://[email or web address]/[email or web address] [email or web address]://[email or web address]/[email or web address] Blood specimen (specimen) 03/29/2014 3:19 AM EDT 03/29/2014 3:25 AM EDT Narrative Resulting Agency Comment Spec In Lab Cathie Venegas MD CHEMISTRY ORDERAB LES Performing Organization Address [facility] Phone Number BRADLEY vendome [phone] * (ABNORMAL) POCT Glucose (03/29/2014 3:06 AM EDT) Glucose, POC 362(H) 60 - 199 mg/dL CERWYATT MILLENNIUM Comment: Supplemental ranges: <140 mg/dL before meals <180 mg/dL all other times of the day Blood specimen (specimen) 03/29/2014 3:06 AM EDT 03/29/2014 3:06 AM EDT Cathie Venegas MD POINT OF CARE CHANCE T ORDERABLES Performing Organization Address [facility] Phone Number BRADLEY HESTER documented in this encounter Visit Diagnoses Diagnosis SVT (supraventricular tachycardia)- Primary Other specified cardiac dysrhythmias Atrial fibrillation SVT (supraventricular tachycardia) Other specified cardiac dysrhythmias Diabetes mellitus Type II or unspecified type diabetes mellitus without mention of complication, not stated as uncontrolled Diabetes mellitus Type II or unspecified type diabetes mellitus without mention of complication, not stated as uncontrolled Atrial fibrillation documented in this encounter Administered Medications Inactive Administered Medications - up to 3 most recent administrations Medication Order MAR Action Action Date Dose Rate Site aspirin EC tablet 81 mg 81 mg, Oral, DAILY, First dose on Thu03/29/14 at 0900, Until Discontinued, Routine Given 03/30/2014 8:26 AM EDT 81 mg Given 03/29/2014 8:00 AM EDT 81 mg atorvastatin (LIPITOR) tablet 10 mg 10 mg, Oral, EVERY EVENING, First dose on Thu03/29/14 at 1700, Until Discontinued, Routine Given 03/29/2014 4:18 PM EDT 10 mg DILTiazem (CARDIZEM) 125 mg in D5W 125 mL infusion 5 mg/hr (rounded to 5 mL/hr), Intravenous, CONTINUOUS, Starting on Thu03/29/14 at 0445, Until Thu03/29/14 at 1006, Infusion: ? ? Titrate to maintain heart rate of 110 ; Call MD for heart less than 60. Initiate infusion at 5 mg/hr and increase every 30 minutes by 5 mg/hr to a maximum dose of 15 mg/hr., Routine New Bag 03/29/2014 6:15 AM EDT 5 mg/hr 5 mL/hr DILTiazem (CARDIZEM) tablet 30 mg 30 mg, Oral, EVERY 6 HOURS SCHEDULED, First dose on Thu03/29/14 at 2000, Until Discontinued, Hold for SBP<95, Routine Given 03/30/2014 11:52 AM EDT 30 mg Given 03/30/2014 5:50 AM EDT 30 mg Given 03/30/2014 1:04 AM EDT 30 mg esomeprazole (NexIUM) capsule 20 mg 20 mg, Oral, DAILY, First dose on Thu03/29/14 at 0900, Until Discontinued, Routine Given 03/30/2014 8:26 AM EDT 20 mg Given 03/29/2014 8:00 AM EDT 20 mg heparin (porcine) injection 3,200-6,400 Units 3,200-6,400 Units, Intravenous, BOLUS PER HEPARIN [...] order required aPTT - Per Protocol, Routine Given 03/29/2014 6:49 AM EDT 6,400 Units heparin 25,000 units in dextrose 5% 500 mL infusion 500-7,000 Units/hr (rounded to 10-140 mL/hr), [...] than 145 sec X 2 - call char house supervisor See Bolus dosing guidance for aPTT values less than 80 seconds under PRN medications Repeat aPTT 6 hours after initiating heparin. Then 6 hours after each dose adjustment. When 2 consecutive aPTT within target range of 80 - 114 seconds, change aPTT to once every 24 hours with A.M. labs while on heparin. RN to order required aPTT - Per Protocol, Routine Rate/Dose Change 03/30/2014 8:15 AM EDT 1,300 Units/hr 26 mL/hr New Bag 03/30/2014 12:49 AM EDT 1,100 Units/hr 22 mL/hr Restarted 03/30/2014 12:46 AM EDT 1,100 Units/hr 22 mL/hr insulin aspart (novoLOG) VIAL injection 1-10 Units 1-10 Units, Subcutaneous, 3 TIMES DAILY WITH MEALS, First dose on Thu03/29/14 at 1700, Until Discontinued, MEAL ASSOCIATED Give 1 unit for every 8 grams carbohydrate. Hold if not eating Given 03/30/2014 8:23 AM EDT 7 Units Given 03/29/2014 5:34 PM EDT 9 Units insulin aspart (novoLOG) VIAL injection 1-12 Units 1-12 Units, Subcutaneous, 3 TIMES DAILY WITH MEALS, First dose on Thu03/30/14 at 1200, Until Discontinued, MEAL ASSOCIATED Give 1 unit for every 6 grams carbohydrate. Hold if not eating Given 03/30/2014 12:28 PM EDT 10 Units insulin aspart (novoLOG) VIAL injection 1-4 Units 1-4 Units, Subcutaneous, EVERY 4 HOURS [...] insulin and resume prior schedule. Given 03/30/2014 7:51 AM EDT 3 Units Given 03/30/2014 12:12 AM EDT 2 Units Given 03/29/2014 10:01 PM EDT 4 Units insulin aspart (novoLOG) VIAL injection 2-8 Units 2-8 Units, Subcutaneous, EVERY 4 HOURS [...] insulin and resume prior schedule. Given 03/29/2014 7:58 AM EDT 8 Units Given 03/29/2014 6:29 AM EDT 8 Units Given 03/29/2014 4:33 AM EDT 8 Units insulin aspart (novoLOG) VIAL injection 2-8 Units 2-8 Units, Subcutaneous, EVERY 4 HOURS [...] insulin and resume prior schedule. Given 03/30/2014 2:28 PM EDT 8 Units Given 03/30/2014 12:28 PM EDT 8 Units insulin aspart (novoLOG) VIAL injection 3-12 Units 3-12 Units, Subcutaneous, EVERY 4 [...] insulin and resume prior schedule. Given 03/29/2014 10:28 AM EDT 3 Units insulin glargine (LANTUS) VIAL injection 28 Units 28 Units, Subcutaneous, NIGHTLY, First dose (after last modification) on Thu03/29/14 at 2100, Until Discontinued, Routine Given 03/29/2014 9:59 PM EDT 28 Units lisinopril (PRINIVIL;ZESTRIL) tablet 5 mg 5 mg, Oral, DAILY, First dose on Thu03/29/14 at 0900, Until Discontinued, Routine Given 03/30/2014 8:26 AM EDT 5 mg Given 03/29/2014 8:00 AM EDT 5 mg magnesium sulfate 1g in dextrose 5% 100mL 1 g, Intravenous, ONCE, 1 dose, On Thu03/29/14 at 0430, Administer over 60 Minutes Given 03/29/2014 4:54 AM EDT 1 g 100 mL/hr magnesium sulfate 2 g in sterile water 50 mL 2 g, Intravenous, ONCE, 1 dose, On Thu03/30/14 at 1200, Administer over 120 Minutes Given 03/30/2014 11:46 AM EDT 2 g 25 mL/hr metoprolol (LOPRESSOR) pre-split tablet 37.5 mg 37.5 mg, Oral, EVERY 6 HOURS SCHEDULED, First dose on Thu03/29/14 at 0600, Until Discontinued, Hold for SBP <90 or HR <55, Routine Given 03/30/2014 11:51 AM EDT 37.5 mg Given 03/30/2014 6:05 AM EDT 37.5 mg Given 03/30/2014 12:12 AM EDT 37.5 mg perflutren protein-A microspheres (OPTISON) 0.22 mg/mL injection 2.3 mL 2.3 mL, Intravenous, ONCE PRN, 1 dose, Starting on Thu03/29/14 at 1138, Until Thu03/29/14 at 1139, for enhancement of sub-optimal echo images, Echo Lab (Intra-Procedure), Routine Given 03/29/2014 11:39 AM EDT 2.3 mLs documented in this encounter Active and Recently Administered Medications Times are shown in EDT. Scheduled Medication Order 03/28/2014 03/29/2014 03/30/2014 aspirin EC tablet 81 mg (CANCELED) 81 mg, Oral, DAILY, First dose on Thu03/29/14 at 0900, Until Discontinued, Routine 0800 (Given - Provider: Liana Hagen RN) 0826 (Given - Provider: Kimberly Mejias RN) atorvastatin (LIPITOR) tablet 10 mg (CANCELED) 10 mg, Oral, EVERY EVENING, First dose on Thu03/29/14 at 1700, Until Discontinued, Routine 1618 (Given - Provider: Liana Hagen RN) DILTiazem (CARDIZEM) tablet 30 mg (CANCELED) 30 mg, Oral, EVERY 6 HOURS SCHEDULED, First dose on Thu03/29/14 at 2000, Until Discontinued, Hold for SBP<95, Routine 1946 (Given - Provider: Natalie Zepeda RN) 0104 (Given - Provider: Natalie Zepeda RN)0550 (Given - Provider: Natalie Zepeda, KRIS)1152 (Given - Provider: Kimberly Mejias, KRIS) esomeprazole (NexIUM) capsule 20 mg (CANCELED) 20 mg, Oral, DAILY, First dose on Thu03/29/14 at 0900, Until Discontinued, Routine 0800 (Given - Provider: Liana Hagen RN) 0826 (Given - Provider: Kimberly Mjeias, KRIS) insulin aspart (novoLOG) VIAL injection 1-10 Units (CANCELED) 1-10 Units, Subcutaneous, 3 TIMES DAILY WITH MEALS, First dose on Thu03/29/14 at 1700, Until Discontinued, MEAL ASSOCIATED Give 1 unit for every 8 grams carbohydrate. Hold if not eating 1734 (Given - Provider: Liana Hagen RN) 0823 (Given - Provider: Kimberly Mejias RN - Comment: 56grams carbs /8 =7units) insulin aspart (novoLOG) VIAL injection 1-12 Units (CANCELED) 1-12 Units, Subcutaneous, 3 TIMES DAILY WITH MEALS, First dose on Thu03/30/14 at 1200, Until Discontinued, MEAL ASSOCIATED Give 1 unit for every 6 grams carbohydrate. Hold if not eating 1228 (Given - Provid er: Kimberly Mejias RN - Comment: 59 carbs/ 6 = 10 units) insulin aspart (novoLOG) VIAL injection 1-4 Units (CANCELED) 1-4 Units, Subcutaneous, EVERY 4 HOURS SCHEDULED, [...] give no insulin and resume prior schedule. 1618 (Given - Provider: Liana Hagen RN)2011 (Given - Provider: Natalie Zepeda, KRIS)2200 (Given - Provider: Natalie Zepeda, KRIS) 11 (Given - Provider: Natalie Zepeda, KRIS)0400 (Not Given - Provider: Natalie eZpeda RN - Reason: Patient/family refused)0751 (Given - Provider: Kimberly Mejias RN) insulin aspart (novoLOG) VIAL injection 2-8 Units (CANCELED) 2-8 Units, Subcutaneous, EVERY 4 HOURS SCHEDULED, [...] give no insulin and resume prior schedule. 0433 (Given - Provider: Kelly Shelley RN)0629 (Given - Provider: Kelly Shelley RN)0758 (Given - Provider: Liana Hagen RN) insulin aspart (novoLOG) VIAL injection 2-8 Units (CANCELED) 2-8 Units, Subcutaneous, EVERY 4 HOURS SCHEDULED, [...] give no insulin and resume prior schedule. 0900 (Not Given - Provider: Kimberly Mejias RN - Reason: See comment - Comment: coverage given already this am)1228 (Given - Provider: Kimberly Mejias RN)1428 (Given - Provider: Kimberly Mejias RN - Comment: BG rechecked 2hrs later for BG >240) insulin aspart (novoLOG) VIAL injection 3-12 Units (CANCELED) 3-12 Units, Subcutaneous, EVERY 4 HOURS SCHEDULED, [...] give no insulin and resume prior schedule. 1028 (Given - Provider: Liana Hagen RN)1200 (Not Given - Provider: Liana Hagen RN - Reason: Order parameters not met) insulin glargine (LANTUS) VIAL injection 28 Units (CANCELED) 28 Units, Subcutaneous, NIGHTLY, First dose (after last modification) on Thu03/29/14 at 2100, Until Discontinued, Routine 2159 (Given - Provider: Natalie Zepeda, KRIS) lisinopril (PRINIVIL;ZESTRIL) tablet 5 mg (CANCELED) 5 mg, Oral, DAILY, First dose on Thu03/29/14 at 0900, Until Discontinued, Routine 0800 (Given - Provider: Liana Hagen RN) 0826 (Given - Provider: Kimberly Mejias, KRIS) magnesium sulfate 1g in dextrose 5% 100mL (COMPLETED) 1 g, Intravenous, ONCE, 1 dose, On Thu03/29/14 at 0430, Administer over 60 Minutes 0454 (Given - Provider: Kelly Shelley RN) magnesium sulfate 2 g in sterile water 50 mL (COMPLETED) 2 g, Intravenous, ONCE, 1 dose, On Thu03/30/14 at 1200, Administer over 120 Minutes 1146 (Given - Provid er: Kimberly Mejias RN) metoprolol (LOPRESSOR) pre-split tablet 37.5 mg (CANCELED) 37.5 mg, Oral, EVERY 6 HOURS SCHEDULED, First dose on Thu03/29/14 at 0600, Until Discontinued, Hold for SBP <90 or HR <55, Routine 0654 (Given - Provider: Kelly Shelley RN)1137 (Given - Provider: Liana Hagen RN)1741 (Given - Provider: Liana Hagen RN) 0012 (Given - Provider: Natalie Zepeda, KRIS)0605 (Given - Provider: Natalie Zepeda, KRIS)1151 (Given - Provider: Kimberly Mejias RN) Continuous Medication Order 03/28/2014 03/29/2014 03/30/2014 DILTiazem (CARDIZEM) 125 mg in D5W 125 mL infusion (CANCELED) 5 mg/hr (rounded to 5 mL/hr), Intravenous, CONTINUOUS, Starting on Thu03/29/14 at 0445, Until Thu03/29/14 at 1006, Infusion: ? ? Titrate to maintain heart rate of 110 ; Call MD for heart less than 60. Initiate infusion at 5 mg/hr and increase every 30 minutes by 5 mg/hr to a maximum dose of 15 mg/hr., Routine 0615 (New Bag - Provider: Kelly Shelley RN)1009 (Stopped - Provider: Liana Hagen RN) heparin 25,000 units in dextrose 5% 500 mL infusion (CANCELED) 500-7,000 Units/hr (rounded to 10-140 mL/hr), Intravenous, [...] than 145 sec X 2 - call char house supervisor See Bolus dosing guidance for aPTT values less than 80 seconds under PRN medications Repeat aPTT 6 hours after initiating heparin. Then 6 hours after each dose adjustment. When 2 consecutive aPTT within target range of 80 - 114 seconds, change aPTT to once every 24 hours with A.M. labs while on heparin. RN to order required aPTT - Per Protocol, Routine 0650 (New Bag - Provider: Kelly Shelley RN)1600 (Rate/Dose Verify - Provider: Liana Hagen RN)1711 (Rate/Dose Verify - Provider: Liana Hagen RN - Comment: ptt 81)2339 (Stopped - Provider: Natalie Zepeda RN - Comment: per protocol for PTT>160.) 0046 (Restarted - Provider: Natalie Zepeda RN)0049 (New Bag - Provider: Natalie Zepeda, KRIS)0815 (Rate/Dose Change - Provider: Kimberly Mejisa RN)1435 (Stopped - Provider: Kimberly Mejias RN) PRN Medication Order 03/28/2014 03/29/2014 03/30/2014 heparin (porcine) injection 3,200-6,400 Units (CANCELED) 3,200-6,400 Units, Intravenous, BOLUS PER HEPARIN PROTOCOL, Starting on 03/29/14 at 0526, Until Cathy 03/30/14 at [...] order required aPTT - Per Protocol, Routine 0649 (Given - Provider: Kelly Shelley RN - Comment: PTT 27) perflutren protein-A microspheres (OPTISON) 0.22 mg/mL injection 2.3 mL (COMPLETED) 2.3 mL, Intravenous, ONCE PRN, 1 dose, Starting on Thu03/29/14 at 1138, Until 03/29/14 at 1139, for enhancement of sub-optimal echo images, Echo Lab (Intra-Procedure), Routine 1139 (Given - Provider: Winifred Spicer) documented in this encounter Care Teams Protozoologist Relationship Specialty Start Date End Date Quin Gordon APRN PCP - General 06/24/10 12/19/17 documented as of this encounter
--- OUTSIDE RECORDS SUMMARY | 2024-02-08 15:32 | XMS_ITS | Encounter Summary ---
Author Organization [facility] [place] [address] Care Team Providers Care Signal Supervisor Name Role Phone Dean Camilo Primary Care Provider Reason for Visit * Reason Comments Medication Refill Encounter Details Date Type Department Care Team (Late st Contact Info) Description 10/21/2014 Refill Cardiology at [address] [phone] Cathie Venegas MD [facility] [place] [address] Medication Refill Social History Tobacco Use Types [...] on filedocumented in this encounter Care Teams Signal Supervisor Relationship Specialty Start Date End Date Dean Camilo PA [address] [place] [address] [id number] PCP - General Internal Medicine 02/01/21 documented as of this encounter
--- OUTSIDE RECORDS SUMMARY | 2024-02-08 15:32 | XMS_ITS | Encounter Summary ---
[place] [address] Care Team Providers Care Flat Finisher Name Role Phone Ruben Gillette MD Primary Care Provider + Reason for Referral * Diagnostic Test (Routine) - Closed Specialty Diagnoses / Procedures Referred By Rommel bhat Referred To Contact Diagnoses Symptomatic bradycardia Procedures Myra Fournier BABY COUNSELOR [facility] [place] [address] Referral ID Status Reason Start Date Expiration Date V isits Requested Visits Authorized [id number] Closed Specialty Service Requested 01/11/2018 01/11/2019 1 1 * Consultation (Routine) - Closed Specialty Diagnoses / Procedures Referred By Rommel bhat Referred To Contact Internal Medicine Diagnoses Symptomatic bradycardia Myra Cobb [facility] [place] [address] [address] Referral ID Status Reason Start Date Expiration Date V isits Requested Visits Authorized [id number] Closed Consult, Test & Treat 01/11/2018 01/11/2019 1 1 Reason for Visit * Auth/Cert Specialty Diagnoses / Procedures Referred By Contac t Referred To Contact Diagnoses Symptomatic bradycardia BRADYCARDIA HYPOTENSION Referral ID Status Reason Start Date Expiration Date Visits Re quested Visits Authorized [id number] 1 1 Encounter Details Date Type Department Care Team (Latest Contact Info) Description 01/08/2018 12:22 AM EDT - 01/11/2018 2:40 PM EDT Hospital Encounter [place] [address] Rafat Jerome MD [facility] [place] [address] Satnam Brady MD [facility] [place] [address] Symptomatic bradycardia Discharge Disposition: Home Social History [...] EDT Temperature 36.7 ??C (98.1 ??F) 01/11/2018 1 1:50 AM EDT Respiratory Rate 18 01/11/2018 11:5 0 AM EDT Oxygen Saturation 96% 01/11/2018 4:00 AM EDT Inhaled Oxygen Concentration - - Weight 94.7 kg (208 lb 12.4 oz) 01/11/2018 5:00 AM EDT Height 167.6 cm (5' 6) 01/08/2018 1:59 AM EDT Body Mass Index 33.7 01/08/2018 1:59 AM EDT documented in this encounter Discharge Summaries * Satnam Brady MD - 01/09/2018 8:49 AM EDT Images from the original note were not included. Discharge Summary Patient Name: Hope Busby Patient Age: 67 y.o. Language: Gabonese Race: White Ethnicity: Not nor Admit date: [...] mg once a day which she was takingprior to admission) 3. Consider referral to EP if patient continues to have significant bradycardia on medical management 4. Please monitor HR and BP. Dose of diltiazem reduced to 240 mg. Please note patient is also on apixaban. 5. Home with zio-patch Inpatient Provider Contact Information: Myra Crook, BABY COUNSELOR Discharge Diagnoses (Hospital Problems) and Secondary Diagnoses [...] SVT, DM-2,HTN,HLD and Obesity got transferred from [facility] ([facility]) forsyncope and symptomatic bradycardia.She was completely asymptomatic until yesterday evening. She went for shopping and came home on a bus and started feeling dizziness, chest discomfort and headache.Symptoms lasted for around 15-20 minutes, she checked her blood sugars and they were normal.She found her self on the ground and thought she lost consciousness for few minutes. She was still having symptoms of chest discomfort, headache and dizziness and felt [...] by EMS on site. On arrival to [facility] ER ,she denies having any [...] any episodEs of bradycardia.She was hospitalized to [facility] in last year for an episode of A fib with RVR and her dose of metoprolol was increased from 50mg to 100mg daily. ?? Labs and Medications from [facility]; ?? Labs; Wbc; 10.66 Hg; 10.9 [...] with a history of persistent atrial fibrillation ([id number] 4, on Xarelto), SVT , diabetes type 2, hypertension, hyperlipidemia and obesity who was transferred from [facility] for presyncope/syncope and symptomatic bradycardia. Ms. Busby was [place] [facility] [place] after being transferred from [facility]. She has a history of atrial [...] 100 mg at home. Heart rate found nir in the 30s-40s by EMS, given atropine ??3 with improvement in heart rate. [place] [facility] [place] diltiazem was reduced to 30mg q6 and metoprolol 100 mg daily (patient was tachycardic with HR 110 at the time). The dose was since increased to 180/day and HR has remained betweenHeart Rate: [85-108] on the day of discharge with metoprolol [...] ischemic changes. The chest discomfort was thought nir in the setting of her tachy-hernán syndrome. Medications have been adjusted. Consider a pacemakeras needed if symptomatic bradycardia persists. ? Persistent A fib [id number] 4, on xarelto which was held during [...] oriented x3, ambulatory and free of chest pain prior to discharge. Important Studies and Lab Data: [...] appointments: During 8am-5pm Thursday through Thursday call [phone] to speak with a nurse in the cardiology clinic All other times call [phone] and ask to speak to the doweling machine operator concrete mixer operator helper. Return to work: One week Driving: Ok to resume if previously driving Follow up Appointments: PCP -- Dr. Gillette ([facility]) -- Your follow up appointment is scheduled for Januaryat 3:15 Cardiology -- Dr Brady Your follow up appointment is scheduled for January at 3:20 pm Home oxygen therapy: N/A Arrangements for VNA/home care: see orders Future Appointments and Orders Future Appointments Provider Department Dept Phone 02/04/2018 3:30 PM Ruben Gillette MD Primary Care at [facility] [phone] 02/09/2018 3:20 PM Satnam Brady MD Cardiology at [place] [phone] Future Orders Complete By [place] [CAR40 Custom] 01/11/2018 (Approximate) 07/13/2018 Process Instructions: Scheduling Instructions: Questions: Does the patient have a pacemaker? If yes provide HI/LO settings: Which location will this be performed?: [place] Referral to General Internal Medicine [REF40 Custom] As directed Process Instructions: If no progress note charted, please enter Clinical details in comments. Scheduling Instructions: Questions: My question or request is: patient would like to establish with PCP Referral to Home Health - at DISCHARGE [GTB8803 CPT(R)] As directed Process Instructions: Scheduling Instructions: Comments: DOCUMENTATION FOR VNA SERVICES (INCLUDING THOSE PATIENTS WITH MEDICARE COVERAGE REQUIRING HOME VNA SERVICES AND/OR HOSPICE SERVICES) PATIENT'S LOCATION: [facility] [address] [place] [phone] (home) Blanking Press Operator's Name: self In discussion with the attending physician, it is certified that this patient is under their care and that they, or a Nurse Practitioner,Clinical Nurse specialist or Physician Anger Control Counselor who is working directly with them, had [...] services as follows: HOME CARE ORDERS: RN ORDERS:Assess wound or incision, vital signs, cardiopulmonary status, nutrition, hydration, elimination, meds effectiveness and management; reinforce education re health issues HOME HEALTH CARE AGENCY: [facility]. PHONE: [phone] FAX: [phone] Start of care:in 48 hrs of d/c FOR MEDICARE ONLY: In discussion with the attending physician, it is certified that the clinical findings support thatthis patient is homebound because absences from home require considerable and taxing effort due to:post hospitalization for syncope, heart arhythmia evaluation now with new medication regimen for whom home rest is part of initial recovery resolution with the exception of medical appts. Please note that any additional orders needs or changes will need to be obtained from this patient's PCP: Ruben Gillette MD [facility] GENER[facility] INTERNAL MEDICINE / NEGIN N* [phone] All VNA agencies which cover the area of patient's residence have been reviewed, either verbally christine writing, and patient/family have chosen the home health care agency noted Questions: Agency name and contact information: [place] Patient location post discharge: own home What services are requested: Registered Nurse Start date: Responsible MD post discharge contact info: PCP and [facility] [place] Service Discharge References/Attachments None Myra Crook APRN 01/11/2018 documented in this encounter Discharge Instructions * Discharge Instructions* Myra Crook APRN - 01/11/2018 2:11 PM EDT Anti-coagulation follow up: None Call your doctor if: Chest pain, shortness of breath, pain or swelling in legs occurs. If you have non-emergent questions between now and the time of your follow up appointments: During 8am-5pm Thursday through Thursday call [phone] to speak with a nurse in the cardiology clinic All other times call [phone] and ask to speak to the doweling machine operator concrete mixer operator helper. Return to work: One week Driving: Ok to resume if previously driving Follow up Appointments: PCP -- Dr. Gillette ([facility]) -- Your follow up appointment is scheduled for Januaryat 3:15 Cardiology -- Dr Brady Your follow [...] as of this encounter Progress Notes * Nasreen Shipley RN - 01/11/2018 2:21 PM EDT Office of Care Management(OCM)/Composition Floor Setter(CM)/Discharge Planning Service: Cardiology S1 Pager # [phone] RONNIE ShipleyRN,BSN,MA,[facility] pgr [phone] Referral from MANIFEST/ORDER ORGANIZER [employer] and [employer] that pt would benefit from home RN services as she is on new medication regimen, lives alone and is continuing recovery from hospitalization from syncopal episode. Met w pt to discuss recommendation for home RN services f/u post hospitalization. She agreed and requests the agency she has had in the past and is aware of the homebound expectation. [facility] PHONE: [phone] FAX: [phone] Orders pended for home RN services and info to be made available via [employer] by [facility] Resource Specialists for:above agency. * Andi Encinas MSW - 01/11/2018 1:01 PM EDT [employer] arranging hospital DC ride with [facility] [phone] ([place] medicaid)R...they will call back with time/hazmat cdl a driver info * Myra Crook APRN - 01/11/2018 10:25 AM EDT Images from the original note were not included. Inpatient Cardiology Progress Note Patient Name: Hope Busby Service: MANIFEST/ORDER ORGANIZER [employer] / PA Responsible Attending: Satnam Brady MD [...] today. No presyncope symptoms during admission. Anticipates going home today. Patient will need ride arranged with [...] exhibits no distension. There is no tenderness. Thereis no rebound and no guarding. Musculoskeletal: Normal [...] with a history of persistent atrial fibrillation ([id number] 4, on Xarelto), SVT , diabetes type 2, hypertension, hyperlipidemia and obesity who was transferred from [facility] for presyncope/syncope and symptomatic bradycardia. Her initial [...] by EMS on site. On arrival to [facility] ER ,she denies having any dizziness or chest discomfort but her rate was around 50- 60's and her blood pressure improved to SBP of 110-120 mm of hg. Troponins negative.Initial EKG consistent with bradycardia with a rateof 59/minute. CT head negative at OSH. She was seen by Neuro for some speech difficulties which arechronic for her with no further workup recommended [...] with a ride home up north of [facility] and will also need a Ziopatch at discharge. ?? Symptomatic bradycardia with presyncope/syncope Tele: persistent AF, resting rates improving, exertion rates 120'-130's, rare dropped beats, no bradycardia overnight Adjust meds: Metoprolol 50 mg BID and increase diltiazem to goal of 180mg daily (start long acting on 01/10) Ziopatch at discharge F/u with cardiology as outpatient- she wishes to return [place] [facility] [place] her [place]CP/Cardiology care Neuro to consult, no suspicion of CVA or need for further workup at this time ?? Chest discomfort - NOS Troponin negative ECG without ischemic changes Symptom related to presyncopal episode, none since Continue ASA, statin, ACEi, BB ?? 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 DM II Hold [...] More than 30 minutes were spent in ngjo-py-bupe contact with patient and with arranging discharge and coordinating follow-up. * Michelle Torres APRN - 01/10/2018 9:15 AM EDT Inpatient Cardiology Progress Note Patient Name: Hope Busby Service: MANIFEST/ORDER ORGANIZER [employer] / PA Responsible Attending: Satnam Brady MD [...] no c/o chest pressure/pain, no trouble breathing. Nopresyncope symptoms during admission. Anticipates going home today [...] An irregular rhythm present. Tachycardia present. Exam reveals distant heart sounds. Exam reveals no gallop and no friction rub. No murmur heard. Pulmonary/Chest: Effort normal and breath sounds normal. No respiratory distress. She has no wheezes. She has no rales. Abdominal: Soft. Bowel sounds are normal. She exhibits no distension. There is no tenderness. Thereis no rebound and no guarding. Musculoskeletal: Normal [...] PLATELET 371* 320 383* Recent Labs 01/08/18 012 INR 1.2 Recent Labs 01/10/18 0528 01/09/18 [...] with a history of persistent atrial fibrillation ([id number] 4, on Xarelto), SVT , diabetes type 2, hypertension, hyperlipidemia and obesity who was transferred from [facility] for presyncope/syncope and symptomatic bradycardia. Her initial [...] by EMS on site. On arrival to [facility] ER ,she denies having any dizziness or chest discomfort but her rate was around 50- 60's and her blood pressure improved to SBP of 110-120 mm of hg. Troponins negative.Initial EKG consistent with bradycardia with a rateof 59/minute. CT head negative at OSH. She was seen by Neuro for some speech difficulties which arechronic for her with no further workup recommended [...] with a ride home up north of [facility] and will also need a Ziopatch at discharge. ?? Symptomatic bradycardia with presyncope/syncope Tele: persistent AF, resting rates improving, exertion rates 120'-130's, rare dropped beats, no bradycardia overnight Adjust meds: Metoprolol 50 mg BID and increase diltiazem to goal of 180mg daily (start long acting on 01/10) Ziopatch at discharge F/u with cardiology as outpatient- she wishes to return [place] [facility] [place] her PCP/Cardiology care Neuro to consult, no suspicion of CVA or need for further workup at this time ?? Chest discomfort - NOS Troponin negative ECG without ischemic changes Symptom related to presyncopal episode, none since Continue ASA, statin, ACEi, BB ?? 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 DM II Hold [...] Satnam Brady MD Shannon C. Schachtner, APRN 01/10/2018 Associated attestation - Satnam Brady MD - 01/11/2018 12:02 AM EDT Cardiology Attending Addendum I shared this visit with Michelle Torres APRN, and guided the medical decision-making. * Michelle Torres APRN - 01/09/2018 10:00 AM EDT Images from the original note were not included. Inpatient Cardiology Progress Note Patient Name: Hope Busby Service: MANIFEST/ORDER ORGANIZER [employer]DERS / PA Responsible Attending: Satnam Brady MD [...] no c/o chest pressure/pain, no trouble breathing. Nopresyncope symptoms during admission. Review of Systems: Review [...] An irregular rhythm present. Tachycardia present. Exam reveals distant heart sounds. Exam reveals no gallop and no friction rub. No murmur heard. Pulmonary/Chest: Effort normal and breath sounds normal. No respiratory distress. She has no wheezes. She has no rales. Abdominal: Soft. Bowel sounds are normal. She exhibits no distension. There is no tenderness. Thereis no rebound and no guarding. Musculoskeletal: Normal [...] PLATELET 320 383* 391* Recent Labs 01/08/18 0129 INR 1.2 Recent Labs 01/09/18 0847 01/08/18 0129 NA 137 137 K 4.2 4.3 CL 96* 98 CO2 24 23 BUN 12 16 CREATININE 0.91 0.91 Recent Labs 01/08/18 0129 AST [...] with a history of persistent atrial fibrillation ([id number] 4, on Xarelto), SVT , diabetes type 2, hypertension, hyperlipidemia and obesity who was transferred from [facility] for presyncope/syncope and symptomatic bradycardia. Her initial [...] by EMS on site. On arrival to [facility] ER ,she denies having any dizziness or chest discomfort but her rate was around 50- 60's and her blood pressure improved to SBP of 110-120 mm of hg. Troponins negative.Initial EKG consistent with bradycardia with a rateof 59/minute. CT head negative at OSH. She was seen by Neuro for some speech difficulties which arechronic for her with no further workup recommended [...] statin, ACEi, BB ?? Persistent A fib [id number] 4, resume rivaroxiban-stop heparin Continue metoprolol/diltiazem for [...] Torres APRN, and guided the medical decision-making. * Myra Crook APRN - 01/08/2018 8:04 AM EDT Images from the original note were not included. Inpatient Cardiology Progress Note Patient Name: Hope Busby Service: MANIFEST/ORDER ORGANIZER [employer] / PA Responsible Attending: Satnam Brady MD Reason for continued hospitalization: Evaluation and management of arrhythmia / atrial fibrillation Active Problems: Active Hospital Problems Diagnosis ??? Symptomatic bradycardia ??? Syncope ??? Diabetes mellitus ??? Morbid obesity ??? Atrial fibrillation Resolved Hospital Problems Diagnosis Date Resolved No resolved problems to display. Interval History: Admitted overnight from [facility] in the setting of tachybradycardia syndrome, (A. fib with RVR, symptomatic bradycardia) and recent presyncope versus syncopal event. This morning she is feeling okay, is noted to have garbled speech on rounds. CT negative outside hospital. The patientalso states that she tends to have trouble [...] heparin (porcine) 1,000 Units/hr (01/08/18 0218) PRN Meds:sodium chloride 0.9 %, lidocaine, nitroGLYcerin, [...] Intake/Output Summary (Last 24 hours) at 01/08/18 0827 Last data filed at 01/08/18 0530 Gross [...] exhibits no distension. There is no tenderness. Thereis no rebound and no guarding. Musculoskeletal: Normal [...] and vitals reviewed. Lab Comments: Recent Labs 01/08/18 012 WBC 9.1 HGB 10.4* HCT 34.3* PLATELET 391* Recent Labs 01/08/18128 INR 1.2 Recent Labs 01/08/18128 NA 137 K 4.3 CL 98 CO2 23 BUN 16 CREATININE 0.91 Recent Labs 01/08/18128 AST 11 ALT 13 ALKPHOS 48 BILITOT 0.2 BILIDIR 0.1 Recent Labs 01/08/18 012 CALCIUM 8.8 MAGNESIUM 0.67* PHOS 3.9 Recent Labs 01/08/18128 CK 107 TROPONINT <0.01 Pertinent Radiographic/Diagnostic Results: I have independently visualized the following studies: ECG: Atrial fibrillation 96bpm, no ischemic changes noted ECHO: ordered and pending Assessment: Hope Busby is a 67 y.o. female with a history of persistent atrial fibrillation ([id number] 4, on Xarelto), SVT , diabetes type 2, hypertension, hyperlipidemia and obesity who was transferred from [facility] for presyncope/syncope and symptomatic bradycardia. Ms. Busby was admitted [place] [facility] [place] after being transferred from [facility]. She has a history of atrial fibrillation, on xarelto and does not skip a dose. Her initial symptoms were dizziness, with chest discomfort and a headache which she experienced after getting back to her house fromshopping earlier in the day. Glucose was normal. She felt dizzy and later found herself on the ground. She is unsure if she is lost consciousness during this time. She called EMS who found her to be bradycardic with heart rates 37-40 she is on diltiazem 240 mg and metoprolol 100 mg at home. She wasgiven0.5mg of atropine by EMS on site. On arrival to [facility] ER ,she denies having any dizziness or chest discomfort but her rate was around 50-60's and her blood pressure improved to SBP of 110-120 mm of hg. Troponins negative.EKG consistent with bradycardia with a rate of 59/minute. CT head negativeat OSH. Upon rounds this morning she had no focal deficits. It appears she is having some difficulty with garbled speech,however notes she has trouble getting words out when she is under pressure. ?? Symptomatic bradycardia with presyncope/syncope Patient reports she blacked out however remembers falling to the ground, unclear whether she lostconsciousness has been taking diltiazem 240 mg and metoprolol 100 mg daily Heart rate found to be in the 30s-40s by EMS, given atropine ??3 with improvement in heart rate Diltiazem put on hold, patient continued on metoprolol for now as she had heart rates up to [address] head and lower extremity x-rays negative [...] without ischemic changes ?? Persistent A fib [id number] 4, on xarelto held at this time transitioned to heparin (now on hold while awaiting repeat head CT) She had multiple episodes of SVT before and diagnosed with A fib in 2014 Reports having a cardioversion and adenosine in the past On Xarelto for anticoagulation with [id number] score of 4. This is likely to [...] patient regarding her history of intermittent dysarthria. * Wiliam Benson RN - 01/08/2018 1:18 AM EDT Pt arrived from [facility] 003 via ambulance. Denied CP or SOB. Placed on tele and noted on afib with HR 90s-110s. BP WNL, see flowsheet. Oriented to room and call puckett system and verbalized understanding. Dr. Rodriguez at bedside. Pt has a port/supra pubic catheter, made aware. documented in this encounter H&P Notes * Megan Rodriguez MD - 01/08/2018 12:27 AM [...] problems to display. History of Present Illness: HPI Mrs Hope Busby is a 67 y/o F with h/o Persistent A fib(on metoprolol,cardizem and Xarelto), SVT, DM-2,HTN,HLD and Obesity got transferred from [facility] ([facility]) forsyncope and symptomatic bradycardia.She was completely asymptomatic until yesterday evening. She went for shopping and came home on a bus and started feeling dizziness, chest discomfort and headache.Symptoms lasted for around 15-20 minutes, she checked her blood sugars and they were normal.She found her self on the ground and thought she lost consciousness for few minutes. She was still having symptoms of chest discomfort, headache and dizziness and felt [...] by EMS on site. On arrival to [facility] ER ,she denies having any [...] any episodEs of bradycardia.She was hospitalized to [facility] in last year for an episode of A fib with RVR and her dose of metoprolol was increased from 50mg to 100mg daily. Labs and Medications from [facility]; Labs; Wbc; 10.66 Hg; 10.9 Platelets; [...] in place for the last 2 years(after hip surgery) MSK: negative for joint pain, joint stiffness [...] Release(E.C.) Take 20 mg by mouth daily. 01/07/2018at Unknown time ??? simvastatin (ZOCOR) 20 mg tablet Take 20 mg by mouth nightly. 01/07/2018 at Unknown time ??? metFORMIN (GLUCOPHAGE) 500 mg tablet Take 1,000 mg by mouth 2 times daily (with meals). 1000 mg= 2 tablets 01/07/2018 at Unknown time ??? [...] edema . Pulses palpable, no calf tenderness Neuro/SPIRAL BINDER: AAO x 3, No evident deficits Skin/Integumentary: [...] SVT, DM-2,HTN,HLD and Obesity got transferred from [facility] ([facility]) for syncope and symptomatic bradycardia.She [...] been taking X arelto for anticoagulation with [id number] score of 4. Her metoprolol and cardizem [...] her history and denies any recent hypoglycemic episodesto cause dizziness. Will hold metformin and started [...] detail about the plan of care. She wantsher daughter Miss Katharina Busby as her next of kin (her ph no; [phone]). Megan Rodriguez MD Provider #: [id number] 01/08/2018 documented in this encounter Miscellaneous Notes * Plan of Care - Amber Burns RN [...] Afib continues with rates 80's resting and 110-120's with activity. PLAN MOVING FORWARD: Discharge today with [...] Supportive Measures active listening utilized;positive reinforcement provided * Plan of Care - Skye Paris RN [...] factors per assessment: [current deficits]: unfamiliar envio, suprapubiccatheter, generalized weakness Assistance [level of assistance required for transfers and ambulation]: SBA with front wheel walker Supervision [direct monitoring required during toileting and ADLs]: ind Surveillance [continuous indirect monitoring]: Tele, continuous pulse ox, purposeful rounding Patient-specific fall prevention interventions for sensory deficits provided, if applicable: [X] N/A CPG GOAL OUTCOME EVALUATION: Ongoing Goal: Fall Prevention-Safe Patient Handling 01/10/18 08 Johns Fall Risk History of Falling 25 Secondary Diagnosis 15 Ambulatory Aids 15 Intravenous Therapy/Heparin/Saline Lock 20 Gait/Transferring 10 Mental Status 0 Score 85 OTHER Johns Fall Risk High Restraint Interventions Safety Promotion/Fall Prevention activity supervised;elopement precautions initiated;fall prevention program maintained;safety round/check completed;nonskid shoes/slippers when out of bed Positioning Body Position up in chair Activity Activity Type activity adjusted per tolerance Activity Assistance Provided assistance, stand-by Assistive Device Utilized front-wheel walker * Plan of Care - Alana Santoyo RN [...] refused PRN acetaminophen, ice pack applied with good effect. SP cath with scant amount of drainage, area cleaned, intra-dry placed under skin folds. Ptable to rest between care. PLAN MOVING FORWARD: [...] Control Outcome: Ongoing (Interventions Implemented as Appropriate) 01/09/182029 Safety Interventions Isolation Precautions standard precautions maintained Infection Prevention rest/sleep promoted;single patient room provided;environmental surveillance performed Coping Strategies Supportive Measures active listening utilized;decision-making supported;positive reinforcement provided;self-reflection promoted;verbalization of feelings encouraged * Plan of Care - Skye Paris RN [...] Insulin sliding scale orders increased per pt homeroutine with good effect, see MAR/ results review. Heparin gtt discontinued, see MAR. Hot pack applied to right ankle and secured with parul bandage with good effect. PLAN MOVING FORWARD: DC tomorrow? Zio patch? INDIVIDUALIZED FALL PREVENTION INTERVENTIONS: Patient-specific fall risk factors per assessment: [current deficits]: unfamiliar enviro, suprapubic catheter, tele leads, continuous pulse ox Assistance [level [...] supported;positive reinforcement provided;problem solving facilitated;relaxation techniques promoted;self-care encouraged;self-reflectionpromoted;self-responsibility promoted * Plan of Care - Wiliam Benson RN [...] 1 person Assistive Device Utilized standard walker * Plan of Care - Sánchez Solis RN - 01/08/2018 6:56 PM EDT OUTCOME EVALUATION NOTE: OUTCOME SUMMARY: Pt MD Tristan's questioned garbled speech on rounds, otherwise no neuro deficits. Heparin paused and Head CT performed, no intracranial process seen. Heparin gtt restarted. Pt able to ambulate w/walkerto bathroom w/o incident. No episodes of bradycardia [...] applicable: [X] No CPG GOAL OUTCOME EVALUATION: * Consult Note - Rigoberto Carrillo MD - 01/08/2018 10:01 AM EDT Neurology [...] an episode of syncope. Notes that at times of heart rate is down to the 40s [...] the time of evaluation. Of note CT had obtained at outside hospital (currently not in our system at the time of this note) was negativefor a acute hemorrhage. Initial recommendations prior to seeing the patient were to obtain a CT head. Upon discussion with the patient, she notes that her speech difficulty happens on and off even prior to this hospitalization. She notes that when she talking to someone and she is excited or annoyed it can happen. She notes that speaking becomes harder [...] vomiting. Patient notes auras, which she describes ascircles coming in from all directions which are whitish/silver in color but can be pinkish/bluish as well. Patient also notes that sometimes her imagination with the pain in the head runs wild (i picture all these circles coming in and I'm just amazed of how it happens. I'm not psych or looney or anything). Sometimes they last for 20 minutes but can last up to 3 hours. Tylenol and advil don't to uch it so she just waits till they go away. [...] Infusions: ??? heparin (porcine) 1,000 Units/hr (01/08/18 021) PRN Meds:.sodium chloride 0.9 %, lidocaine, nitroGLYcerin, [...] mouth 2 times daily (with meals). 1000 mg= 2 tablets ??? 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 CT [place] [facility] been [place] and there is no noted hemorrhage. During my assessment of the patient, I noted minimal dysarthria that appears to be more due to her lack of dentition than a central cause. I did not not any aphasia and she was able to tell me her thought clearly and was able to perform the tasks for aphasia assessment on the NIHSS without difficulty. She notes a 35year history of difficulty getting her thoughts/words out when she is surrounded by 3-4 people or when she is excited/annoyed. Taking her atrial fibrillation into account, in addition to her exam, I do not believe that further workup is needed at this time to rule out a stroke. If her speech becomes more dysarthric or she develops weakness on one side [...] - PGY-2 Vascular Neurology (Stroke) team pager: [phone] 01/08/18 Standard [facility] [place]allow Screen: This screen [...] diet as medical provider deems appropriate. Consider DIRECTOR OF CONSULTING SERVICES consult for full evaluation and diet recommendations. [...] well as the resident???s and student's history and examination findings and I agree with the details as written. My neurologic examination confirms the resident???s findings. We formulated the assessment and plan after a detailed discussion, as documented. * Initial Assessments - Andi Encinas MSW - [...] Elle Pelaez Primary Care Provider: Hoa Jacques, BABY COUNSELOR [phone] Patient/Caregiver Goals of Treatment: I want to keep my heart level Potential Needs for Transition of Care: Rehab/SNF: NA Home Health: NA DME: NA Dialysis:NA Community Resources: Available Transportation: RCT Anticipated Barriers to Discharge/Special Considerations: none Assessment: 67 y/o F with h/o Persistent A fib(on metoprolol,cardizem and Xarelto), SVT, DM-2,HTN,HLD and Obesity got transferred from [facility] ([facility]) for syncope and symptomatic bradycardia Plan: Likely home with assistance and follow up A member of the Care Management team will continue to monitor progress, follow for continuity of care and assist with transition of care planning. GERMAN Romero Pager: [phone] documented in this encounter Plan of Treatment Scheduled Orders Name Type Priority Associated Diagnoses Orde r Schedule EKG 12 Lead ECG Routine Symptomatic bradycardia One Time for 1 Occurrences starting 01/11/2018 until 01/11/2018 Scheduled Referrals Name Type Priority Associated Diagnoses Orde r Schedule Referral to General Internal Medicine Outpatient Referral Routine Symptomatic bradycardia Ordered: 01/11/2018 documented as of this encounter Procedures Procedure Name Priority Date/Time Associated Diagnosis Comments [employer] ARCHITECT SCAN 01/12/2018 12:00 AM EDT POCT GLUCOSE Routine 01/11/2018 11:51 AM EDT EKG 12-LEAD STAT 01/11/2018 11:06 AM EDT Symptomatic bradycardia POCT GLUCOSE Routine 01/11/2018 7:24 AM EDT BMP W/FASTING GLUCOSE Routine 01/11/2018 4:37 AM EDT MAGNESIUM Routine 01/11/2018 4:37 AM EDT POCT GLUCOSE Routine 01/10/2018 8:34 PM EDT POCT GLUCOSE Routine 01/10/2018 4:37 PM EDT POCT GLUCOSE Routine 01/10/2018 1:49 PM EDT POCT GLUCOSE Routine 01/10/2018 11:23 AM EDT POCT GLUCOSE Routine 01/10/2018 7:10 AM EDT BMP W/FASTING GLUCOSE Routine 01/10/2018 5:28 AM EDT HEMOGRAM Routine 01/10/2018 5:28 AM EDT DIFFERENTIAL, AUTOMATED Routine 01/10/2018 5:28 AM EDT LAVENDER TUBE HOLD Routine 01/10/2018 5: 28 AM EDT MAGNESIUM Routine 01/10/2018 5:28 AM EDT POCT GLUCOSE Routine 01/09/2018 8:29 PM EDT POCT GLUCOSE Routine 01/09/2018 4:36 PM EDT POCT GLUCOSE Routine 01/09/2018 1:51 PM EDT POCT GLUCOSE Routine 01/09/2018 11:33 AM EDT POCT GLUCOSE Routine 01/09/2018 10:35 AM EDT HEPARIN (UNFRACTIONATED) LEVEL STAT 01/09/2018 8:47 AM EDT BMP W/FASTING GLUCOSE Routine 01/09/2018 8:47 AM EDT HEMOGRAM Routine 01/09/2018 8:47 AM EDT DIFFERENTIAL, AUTOMATED Routine 01/09/2018 8:47 AM EDT CBC (WITH DIFF) Routine 01/09/2018 8:47 AM EDT MAGNESIUM Routine 01/09/2018 8:47 AM EDT POCT GLUCOSE Routine 01/09/2018 7:42 AM EDT [employer] ARCHITECT SCAN 01/09/2018 12:00 AM EDT POCT GLUCOSE Routine 01/08/2018 9:00 PM EDT HEPARIN (UNFRACTIONATED) LEVEL STAT 01/08/2018 6:38 PM EDT POCT GLUCOSE Routine 01/08/2018 6:05 PM EDT POCT GLUCOSE Routine 01/08/2018 4:20 PM EDT CARDIAC ENZYMES ([facility]) Routine 01/08/2018 3:29 PM EDT POCT GLUCOSE Routine 01/08/2018 12:[address] HEAD WO CONTRAST (GENERIC) STAT 01/08/2018 11:09 AM EDT ECHO COMPLETE W CONTRAST Routine 01/08/2018 9:42 AM EDT Symptomatic bradycardia HEPARIN (UNFRACTIONATED) LEVEL STAT 01/08/2018 9:41 AM EDT HEMOGRAM Routine 01/08/2018 9:41 AM EDT DIFFERENTIAL, AUTOMATED Routine 01/08/2018 9:41 AM EDT CARDIAC ENZYMES ([facility] Routine 01/08/2018 9:41 AM EDT CBC (WITH DIFF) Routine 01/08/2018 9:41 AM EDT POCT GLUCOSE Routine 01/08/2018 7:56 AM EDT EKG 12-LEAD Routine 01/08/2018 1:33 AM EDT Symptomatic bradycardia BMP W/FASTING GLUCOSE Routine 01/08/2018 1:29 AM EDT HEMOGRAM Routine 01/08/2018 1:29 AM EDT DIFFERENTIAL, AUTOMATED Routine 01/08/2018 1:29 AM EDT CARDIAC ENZYMES [place] [place] Routine 01/08/2018 1:29 AM EDT APTT Routine 01/08/2018 1:29 AM EDT PROTHROMBIN TIME Routine 01/08/2018 1:29 AM EDT CBC (WITH DIFF) Routine 01/08/2018 1:29 AM EDT TSH Routine 01/08/2018 1:29 AM EDT PHOSPHORUS Routine 01/08/2018 1:29 AM EDT PRO-BRAIN NATRIURETIC PEPTIDE Routine 01/08/2018 1:29 AM EDT MAGNESIUM Routine 01/08/2018 1:29 AM EDT LDL CHOLESTEROL, DIRECT Routine 01/08/2018 1:29 AM EDT HEMOGLOBIN A1C Routine 01/08/2018 1:29 AM EDT HEPATIC FUNCTION PANEL Routine 01/08/2018 1:29 AM EDT LIPID PANEL (REFLEX DIRECT LDL) Routine 01/08/2018 1:29 AM EDT POCT GLUCOSE Routine 01/08/2018 1:28 AM EDT documented in this encounter Results * SCAN DOC: [employer] ARCHITECT (01/12/2018 12:00 AM EDT) Anatomical Region Laterality Modality Other Narrative 01/12/2018 12:00 AM EDT Ordered by an unspecified provider. Scanning Provider MEDIA MGR SCAN EXT O RDR/RSLT * [place]iop[place] (01/11/2018 3:10 PM EDT) Anatomical [...] collection. ____ Interpreted by Ibrahima Miller MD, [facility] Myra Cobb APRN CARDIAC SERVICES ORD ERABLES * (ABNORMAL) POCT Glucose (01/11/2018 11:51 AM EDT) [facility] Glucose, POC 248(H) 65 - 199 mg/dL [facility] Comment: Supplemental ranges: <140 mg/dL before meals <180 mg/dL all other times of the day Blood specimen (specimen) 01/11/2018 11:51 AM EDT 01/11/2018 11:51 AM EDT Satnam Brady MD POINT OF CARE TEST O RDERABLES [facility] [place] [address] * EKG 12 Lead (01/11/2018 11:06 AM EDT) [facility] Ventricular rate 113 BPM MUSE SYSTEM QRS Duration 76 ms MUSE SYSTEM Q-T Interval 324 ms MUSE SYSTEM QTC Calculated (Bezet) 444 ms MUSE SYSTEM Calculated R [place] 9 degrees MUSE SYSTEM Calculated T [place] 6 degrees MUSE SYSTEM INTERPRETATION Atrial fibrillation with rapid ventricular response Low voltage QRS Abnormal ECG When compared with ECG of 08-JAN-2018 01:33, Nonspecific T wave abnormality, worse in Inferior leads Confirmed by fellow MD Pizano Kristy ([id number]) on 01/11/2018 2:47:42 PM Confirmed by José Manuel Jett MD ([id number]) on 01/11/2018 3:46:00 PM MUSE SYSTEM 01/11/2018 11:0 6 AM EDT 01/11/2018 3:46 PM EDT Megan Rodriguez MD ECG ORDERABLES Performing Organization Address [facility]/ZIP Co de Phone Number MUSE SYSTEM * POCT Glucose (01/11/2018 7:24 AM EDT) Glucose, POC 161 65 - 199 mg/dL [facility] Comment: Supplemental ranges: <140 mg/dL before meals <180 mg/dL all other times of the day Blood specimen (specimen) 01/11/2018 7:24 AM EDT 01/11/2018 7:24 AM EDT Satnam Brady MD POINT OF CARE TEST O RDERABLES Performing Organization Address [facility] Co de Phone Number [facility] [place] [address] * BMP w/fasting Glucose (01/11/2018 4:37 AM EDT) Glucose Fasting 91 65 - 99 mg/dL [facility] Comment: ?Fasting* Glucose Interpretive Criteria Normal [...] of Diabetes Mellitus, Position Statement from the [place] [employer]. ??Diabetes Care, Volume 33, Supplement 1, Jun 2009 Blood Urea Nitrogen 15 8 - 18 mg/dL [facility] Creatinine 0.72 0.70 - 1.20 mg/dL [facility] Sodium 138 135 - 145 mmol/L [facility] Potassium 4.4 3.5 - 5.0 mmol/L [facility] Comment: Please note: ??Patients with WBC >100,000 may have falsely elevated Potassium levels. ??For accurate Potassium quantification in these patients send serum separator tube (gold top) for subsequent determinations. ??Contact the Clinical Chemistry Laboratory if there are any questions. Chloride 102 98 - 107 mmol/L [facility] Carbon Dioxide 22 22 - 31 mmol/L [facility] Anion Gap 14 5 - 15 mmol/L [facility] Calcium 9.2 8.5 - 10.5 mg/dL [facility] Est Glomerular Filtration Rate 85 >=60 mL/min/1. 73 m?? [facility] Comment: The eGFR was calculated using the CKD-EPI equation. As with all creatinine based estimates of kidney function, eGFR values calculated with the CKD-EPI equation are not accurate in patients with acute kidney failure, extremes of body mass or the acutely ill. [email or web address]nkdep [email or web address] [place] [place] eGFR 99 >=60 mL/min/1. 73 m?? [facility] Comment: The eGFR was calculated using the CKD-EPI equation. As with all creatinine based estimates of kidney function, eGFR values calculated with the CKD-EPI equation are not accurate in patients with acute kidney failure, extremes of body mass or the acutely ill. [email or web address] [email or web address] [place] [place] Blood specimen (specimen) 01/11/2018 4:37 AM EDT 01/11/2018 4:55 AM EDT Narrative Resulting Agency Comment Spec In Lab Michelle Torres APRN CHEMISTRY MOE WANG [facility] [place] [address] * (ABNORMAL) Magnesium (01/11/2018 4:37 AM EDT) Magnesium 0.68(L) 0.69 - 1.07 mmol/L [facility] Blood specimen (specimen) 01/11/2018 4:37 AM EDT 01/11/2018 4:55 AM EDT Narrative Resulting Agency Comment Spec In Lab Michelle Torres APRN CHEMISTRY MOE WANG [facility] [place] [address] * POCT Glucose (01/10/2018 8:34 PM EDT) Glucose, POC 176 65 - 199 mg/dL [facility] Comment: Supplemental ranges: <140 mg/dL before meals <180 mg/dL all other times of the day Blood specimen (specimen) 01/10/2018 8:34 PM EDT 01/10/2018 8:34 PM EDT Satnam Brady MD POINT OF CARE TEST O RUBEN Performing Organization Address [facility] Co de Phone Number [facility] [place] [address] * POCT Glucose (01/10/2018 4:37 PM EDT) Glucose, POC 173 65 - 199 mg/dL [facility] Comment: Supplemental ranges: <140 mg/dL before meals <180 mg/dL all other times of the day Blood specimen (specimen) 01/10/2018 4:37 PM EDT 01/10/2018 4:37 PM EDT Satnam Brady MD POINT OF CARE TEST O RUBEN Performing Organization Address [facility]/ZIP Co de Phone Number [facility] [place] [address] * (ABNORMAL) POCT Glucose (01/10/2018 1:49 PM EDT) Glucose, POC 239(H) 65 - 199 mg/dL [facility] Comment: Supplemental ranges: <140 mg/dL before meals <180 mg/dL all other times of the day Blood specimen (specimen) 01/10/2018 1:49 PM EDT 01/10/2018 1:49 PM EDT Satnam Brady MD POINT OF CARE TEST O RDERABLES Performing Organization Address City/[facility] Co de Phone Number [facility] [place] [address] * (ABNORMAL) POCT Glucose (01/10/2018 11:23 AM EDT) Glucose, POC 260(H) 65 - 199 mg/dL [facility] Comment: Supplemental ranges: <140 mg/dL before meals <180 mg/dL all other times of the day Blood specimen (specimen) 01/10/2018 11:23 AM EDT 01/10/2018 11:23 AM EDT Satnam Brady MD POINT OF CARE TEST O RDERICKA Performing Organization Address [facility] Co de Phone Number [facility] [place] [address] * (ABNORMAL) POCT Glucose (01/10/2018 7:10 AM EDT) Glucose, POC 235(H) 65 - 199 mg/dL [facility] Comment: Supplemental ranges: <140 mg/dL before meals <180 mg/dL all other times of the day Blood specimen (specimen) 01/10/2018 7:10 AM EDT 01/10/2018 7:10 AM EDT Satnam Brady MD POINT OF CARE TEST O RDERABLES Performing Organization Address City/[facility] Co de Phone Number [facility] [place] [address] * (ABNORMAL) Differential, Automated (01/10/2018 5:28 AM EDT) Neutrophil % 43.8 % [facility] Neutrophil Absolute 3.45 1.70 - 6.10 x10(3)/[facility] Lymph % 39.8 % [facility] Lymphocytes Abs 3.1 0.9 - 3.2 x10(3)/[facility] Monocyte % 12.5 % [facility] Monocyte Abs 1.0(H) 0.3 - 0.9 x10(3)/[facility] Eos % 2.9 % [facility] Eosinophils Abs 0.2 0.0 - 0.4 x10(3)/[facility] Basophil % 0.6 % [facility] Baso Absolute 0.0 0.0 - 0.1 x10(3)/[facility] Immature Gran % 0.40 % [facility] Comment: Immature granulocytes(IG's)percentage and absolute count will include metamyelocytes, myelocytes, and promyelocytes. Blood smears from CBCs yielding IG's will be scanned manually for concordance. If this scan disagrees with the automated IG or if promyelocytes are noted, a manual differential will be performed. Immature Gran Absolute 0.03 0.00 - 0.04 x10(3)/[facility] Blood specimen (specimen) Venous Draw / Unknown 01/10/2018 5:28 AM EDT 01/10/2018 5:43 AM EDT Narrative Resulting Agency Comment Spec In Lab Satnam Brady MD HEMATOLOGY ORDERABLE S [facility] [place] [address] * (ABNORMAL) Hemogram (01/10/2018 5:28 AM EDT) Pathologist [facility] White Blood Cell 7.9 4.0 - 9.5 x10(3)/[facility] Red Blood Cell 4.54 4.00 - 5.21 x10(6)/mc L [facility] Hemoglobin 11.6(L) 11.7 - 15.5 gm/dL [facility] Hematocrit 37.3 35.7 - 45.8 % [facility] Mean Cell Volume 82.2(L) 82.6 - 94.[address] [facility] Mean Cell Hemoglobin 25.6(L) 27.1 - 32.[address] [facility] Mean Cell Hemoglobin Concentration 31.1(L) 31.7 - 35.0 gm/dL [facility] Platelet 371(H) 145 - 357 x10(3)/mc L [facility] RDW Standard Deviation 44.8 37.0 - 46.[address] [facility] RDW coefficient of variation 15.0(H) 11.5 - 14.1 % [facility] Mean Platelet Volume 10.7 7.6 - 12.[address] [facility] NRBC% auto 0.0 % [facility] NRBC Absolute 0.000 0.000 - 0.000 x10(3)/mc L [facility] Blood specimen (specimen) Venous Draw / Unknown 01/10/2018 5:28 AM EDT 01/10/2018 5:43 AM EDT Narrative Resulting Agency Comment Spec In Lab Satnam Brady MD HEMATOLOGY ORDERABLE S Performing Organization Address City/State/[facility] Co de Phone Number [facility] [place] [address] * Lavender Tube HOLD (01/10/2018 5:28 AM EDT) Lavender Hold Sample in lab. [facility] Blood specimen (specimen) Venous Draw / Unknown 01/10/2018 5:28 AM EDT 01/10/2018 5:43 AM EDT Michelle Torres APRN HEMATOLOGY ORD ERABLES [facility] [place] [address] * (ABNORMAL) BMP w/fasting Glucose (01/10/2018 5:28 AM EDT) Glucose Fasting 194(H) 65 - 99 mg/dL [facility] Comment: ?Fasting* Glucose Interpretive Criteria Normal [...] of Diabetes Mellitus, Position Statement from the [place] [employer]. ??Diabetes Care, Volume 33, Supplement 1, Jun 2009 Blood Urea Nitrogen 19(H) 8 - 18 mg/dL [facility] Creatinine 0.66(L) 0.70 - 1.20 mg/dL [facility] Sodium 138 135 - 145 mmol/L [facility] Potassium 4.0 3.5 - 5.0 mmol/L [facility] Comment: Please note: ??Patients with WBC >100,000 may have falsely elevated Potassium levels. ??For accurate Potassium quantification in these patients send serum separator tube (gold top) for subsequent determinations. ??Contact the Clinical Chemistry Laboratory if there are any questions. Chloride 101 98 - 107 mmol/L [facility] Carbon Dioxide 24 22 - 31 mmol/L [facility] Anion Gap 13 5 - 15 mmol/L [facility] Calcium 9.1 8.5 - 10.5 mg/dL [facility] Est Glomerular Filtration Rate 90 >=60 mL/min/1. 73 m?? [facility] Comment: The eGFR was calculated using the CKD-EPI equation. As with all creatinine based estimates of kidney function, eGFR values calculated with the CKD-EPI equation are not accurate in patients with acute kidney failure, extremes of body mass or the acutely ill. [email or web address]nkdep http://[email or web address]mentsnkf eGFR 104 >=60 mL/min/1. 73 m?? [facility] Comment: The eGFR was calculated using the CKD-EPI equation. As with all creatinine based estimates of kidney function, eGFR values calculated with the CKD-EPI equation are not accurate in patients with acute kidney failure, extremes of body mass or the acutely ill. [email or web address]nkdep [email or web address]/[facility] [place] Blood specimen (specimen) 01/10/2018 5:28 AM EDT 01/10/2018 5:43 AM EDT Narrative Resulting Agency Comment Spec In Lab Michelle Torres APRN CHEMISTRY ORDE [employer]ULIA [facility] [place] [address] * (ABNORMAL) Magnesium (01/10/2018 5:28 AM EDT) Pathologist [facility] Magnesium 0.62(L) 0.69 - 1.07 mmol/L [facility] Blood specimen (specimen) 01/10/2018 5:28 AM EDT 01/10/2018 5:43 AM EDT Narrative Resulting Agency Comment Spec In Lab Michelle Torres APRN CHEMISTRY ORDE [employer] [facility] [place] [address] * (ABNORMAL) POCT Glucose (01/09/2018 8:29 PM EDT) Glucose, POC 220(H) 65 - 199 mg/dL [facility] Comment: Supplemental ranges: <140 mg/dL before meals <180 mg/dL all other times of the day Blood specimen (specimen) 01/09/2018 8:29 PM EDT 01/09/2018 8:29 PM EDT Satnam Brady MD POINT OF CARE TEST O RDERABLES [facility] [place] [address] * POCT Glucose (01/09/2018 4:36 PM EDT) Glucose, POC 181 65 - 199 mg/dL [facility] Comment: Supplemental ranges: <140 mg/dL before meals <180 mg/dL all other times of the day Blood specimen (specimen) 01/09/2018 4:36 PM EDT 01/09/2018 4:36 PM EDT Satnam Brady MD POINT OF CARE TEST O RDERABLES Performing Organization Address [facility]/ZIP Co de Phone Number [facility] [place] [address] * (ABNORMAL) POCT Glucose (01/09/2018 1:51 PM EDT) Glucose, POC 291(H) 65 - 199 mg/dL [facility] Comment: Supplemental ranges: <140 mg/dL before meals <180 mg/dL all other times of the day Blood specimen (specimen) 01/09/2018 1:51 PM EDT 01/09/2018 1:51 PM EDT Satnam Brady MD POINT OF CARE TEST O RDERABLES [facility] [place] [address] * (ABNORMAL) POCT Glucose (01/09/2018 11:33 AM EDT) Glucose, POC 298(H) 65 - 199 mg/dL [facility] Comment: Supplemental ranges: <140 mg/dL before meals <180 mg/dL all other times of the day Blood specimen (specimen) 01/09/2018 11:33 AM EDT 01/09/2018 11:33 AM EDT Satnam Brady MD POINT OF CARE TEST O RUBEN Performing Organization Address [facility] Co de Phone Number [facility] [place] [address] * (ABNORMAL) POCT Glucose (01/09/2018 10:35 AM EDT) Glucose, POC 329(H) 65 - 199 mg/dL [facility] Comment: Supplemental ranges: <140 mg/dL before meals <180 mg/dL all other times of the day Blood specimen (specimen) 01/09/2018 10:35 AM EDT 01/09/2018 10:35 AM EDT Satnam Brady MD POINT OF CARE TEST O RUBEN Performing Organization Address [facility] de Phone Number [facility] [place] [address] * (ABNORMAL) BMP w/fasting Glucose (01/09/2018 8:47 AM EDT) Glucose Fasting 315(H) 65 - 99 mg/dL [facility] Comment: ?Fasting* Glucose Interpretive Criteria Normal [...] of Diabetes Mellitus, Position Statement from the [place] Diabetes [employer]. ??Diabetes Care, Volume 33, Supplement 1, Jun 2009 Blood Urea Nitrogen 12 8 - 18 mg/dL [facility] Creatinine 0.91 0.70 - 1.20 mg/dL [facility] Sodium 137 135 - 145 mmol/L [facility] Potassium 4.2 3.5 - 5.0 mmol/L [facility] Comment: Please note: ??Patients with WBC >100,000 may have falsely elevated Potassium levels. ??For accurate Potassium quantification in these patients send serum separator tube (gold top) for subsequent determinations. ??Contact the Clinical Chemistry Laboratory if there are any questions. Chloride 96(L) 98 - 107 mmol/L [facility] Carbon Dioxide 24 22 - 31 mmol/L [facility] Anion Gap 17(H) 5 - 15 mmol/L [facility] Calcium 8.7 8.5 - 10.5 mg/dL [facility] Est Glomerular Filtration Rate 64 >=60 mL/min/1. 73 m?? [facility] Comment: The eGFR was calculated using the CKD-EPI equation. As with all creatinine based estimates of kidney function, eGFR values calculated with the CKD-EPI equation are not accurate in patients with acute kidney failure, extremes of body mass or the acutely ill. [email or web address] [email or web address] [place] CITY[place]f eGFR 75 >=60 mL/min/1. 73 m?? [facility] Comment: The eGFR was calculated using the CKD-EPI equation. As with all creatinine based estimates of kidney function, eGFR values calculated with the CKD-EPI equation are not accurate in patients with acute kidney failure, extremes of body mass or the acutely ill. [email or web address] [email or web address] Blood specimen (specimen) 01/09/2018 8:47 AM EDT 01/09/2018 9:19 AM EDT Narrative Resulting Agency Comment Spec In Lab Michelle Torres APRN CHEMISTRY MOE WANG [facility] [place] [address] * (ABNORMAL) Magnesium (01/09/2018 8:47 AM EDT) Pathologist [facility] Magnesium 0.65(L) 0.69 - 1.07 mmol/L [facility] Blood specimen (specimen) 01/09/2018 8:47 AM EDT 01/09/2018 9:19 AM EDT Narrative Resulting Agency Comment Spec In Lab Michelle Torres BABY COUNSELOR CHEMISTRY ORDE KATHLEEN Performing Organization Address [facility] de Phone Number [facility] [place] [address] * Heparin (unfractionated) Level (01/09/2018 8:47 AM EDT) [facility] UF Heparin 0.78 IU/mL [facility] Comment: Guidelines for therapeutic unfractionated heparin levels are summarized below. Heparin (Anti-Xa) levels should be determined in a plasma sample that has been drawn 6 hours after a dose change i.e., steady-state has been reached. DRUG ?Dosing Schedule ? Target Peak Steady-State ?Heparin (Anti-Xa) Levels (Units/mL) Unfractionated ?Continuous infusion ?0.3-0.7 Heparin ?0.3-0.6 for some neurology indications Blood specimen (specimen) 01/09/2018 8:47 AM EDT 01/09/2018 9:19 AM EDT Narrative Resulting Agency Comment Spec In Lab Myra Cobb BABY COUNSELOR HEMATOLOGY ORDERABLE S Performing Organization Address [facility]/ZIP Co [place] [address] * Differential, Automated (01/09/2018 8:47 AM EDT) Pathologist [facility] Neutrophil % 49.3 % [facility] Neutrophil Absolute 3.72 1.70 - 6.10 x10(3)/[facility] Lymph % 38.4 % [facility] Lymphocytes Abs 2.9 0.9 - 3.2 x10(3)/[facility] Monocyte % 8.3 % [facility] Monocyte Abs 0.6 0.3 - 0.9 x10(3)/[facility] Eos % 3.2 % [facility] Eosinophils Abs 0.2 0.0 - 0.4 x10(3)/[facility] Basophil % 0.7 % [facility] Baso Absolute 0.0 0.0 - 0.1 x10(3)/[facility] Immature Gran % 0.10 % [facility] Comment: Immature granulocytes(IG's)percentage and absolute count will include metamyelocytes, myelocytes, and promyelocytes. Blood smears from CBCs yielding IG's will be scanned manually for concordance. If this scan disagrees with the automated IG or if promyelocytes are noted, a manual differential will be performed. Immature Gran Absolute 0.01 0.00 - 0.04 x10(3)/[facility] Blood specimen (specimen) 01/09/2018 8:47 AM EDT 01/09/2018 9:19 AM EDT Narrative Resulting Agency Comment Spec In Lab Myra Cobb [place] [address] * (ABNORMAL) Hemogram (01/09/2018 8:47 AM EDT) [facility] White Blood Cell 7.6 4.0 - 9.5 x10(3)/[facility] LABORATORY Red Blood Cell 4.92 4.00 - 5.21 x10(6)/[facility] LABORATORY Hemoglobin 12.3 11.7 - 15.5 gm/dL [facility] Hematocrit 40.3 35.7 - 45.8 % [facility] Mean Cell Volume 81.9(L) 82.6 - 94.4 [facility] Mean Cell Hemoglobin 25.0(L) 27.1 - 32.[address] [facility] Mean Cell Hemoglobin Concentration 30.5(L) 31.7 - 35.0 gm/dL [facility] Platelet 320 145 - 357 x10(3)/[facility] LABORATORY RDW Standard Deviation 44.8 37.0 - 46.0 [facility] RDW coefficient of variation 15.0(H) 11.5 - 14.1 % [facility] Mean Platelet Volume 11.9 7.6 - 12.9 [facility] LABORATORY NRBC% auto 0.0 % [facility] NRBC Absolute 0.000 0.000 - 0.000 x10(3)/[facility] LABORATORY Blood specimen (specimen) 01/09/2018 8:47 AM EDT 01/09/2018 9:19 AM EDT Narrative Resulting Agency Comment Spec In Lab Myra Cobb APRN HEMATOLOGY ORDERABLE S [facility] [place] [address] * (ABNORMAL) POCT Glucose (01/09/2018 7:42 AM EDT) Glucose, POC 292(H) 65 - 199 mg/dL [facility] Comment: Supplemental ranges: <140 mg/dL before meals <180 mg/dL all other times of the day Blood specimen (specimen) 01/09/2018 7:42 AM EDT 01/09/2018 7:42 AM EDT Satnam Brady MD POINT OF CARE TEST O RUBEN Performing Organization Address [facility] Co de Phone Number [facility] [place] [address] * SCAN DOC: [employer]CHITECT (01/09/2018 12:00 AM EDT) Anatomical Region Laterality Modality Other Narrative 01/09/2018 12:00 AM EDT Ordered by an unspecified provider. Scanning Provider MEDIA MGR SCAN EXT O RDR/RSLT * POCT Glucose (01/08/2018 9:00 PM EDT) Pathologist [facility] Glucose, POC 173 65 - 199 mg/dL [facility] Comment: Supplemental ranges: <140 mg/dL before meals <180 mg/dL all other times of the day Blood specimen (specimen) 01/08/2018 9:00 PM EDT 01/08/2018 9:00 PM EDT Satnam Brady MD POINT OF CARE TEST O RUBEN Performing Organization Address [facility] Co de Phone Number [facility] [place] [address] * Heparin (unfractionated) Level (01/08/2018 6:38 PM EDT) UF Heparin 0.46 IU/mL [facility] Comment: Guidelines for therapeutic unfractionated heparin levels are summarized below. Heparin (Anti-Xa) levels should be determined in a plasma sample that has been drawn 6 hours after a dose change i.e., steady-state has been reached. DRUG ?Dosing Schedule ? Target Peak Steady-State ?Heparin (Anti-Xa) Levels (Units/mL) Unfractionated ?Continuous infusion ?0.3-0.7 Heparin ?0.3-0.6 for some neurology indications Blood specimen (specimen) 01/08/2018 6:38 PM EDT 01/08/2018 6:58 PM EDT Narrative Resulting Agency Comment Spec In Lab Myra Cobb APRN HEMATOLOGY ORDERABLE S Performing Organization Address [facility] Co de Phone Number [facility] [place] [address] * (ABNORMAL) POCT Glucose (01/08/2018 6:05 PM EDT) Glucose, POC 295(H) 65 - 199 mg/dL [facility] Comment: Supplemental ranges: <140 mg/dL before meals <180 mg/dL all other times of the day Blood specimen (specimen) 01/08/2018 6:05 PM EDT 01/08/2018 6:05 PM EDT Satnam Brady MD POINT OF CARE TEST O RDERABLES Performing Organization Address [facility] Phone Number [facility] [place] [address] * (ABNORMAL) POCT Glucose (01/08/2018 4:20 PM EDT) Glucose, POC 288(H) 65 - 199 mg/dL [facility] Comment: Supplemental ranges: <140 mg/dL before meals <180 mg/dL all other times of the day Blood specimen (specimen) 01/08/2018 4:20 PM EDT 01/08/2018 4:20 PM EDT Satnam Brady MD POINT OF CARE TEST O RDERABLES Performing Organization Address [facility] Co de Phone Number [facility] [place] [address] * Cardiac Enzymes (LEB/CGP) (01/08/2018 3:29 PM EDT) [facility] Troponin-T <0.01 0.00 - 0.00 ng/mL [facility] Comment: The 99th percentile for Troponin T is less than 0.01 ng/mL, any detectable cTnT concentration using this assay should be considered elevated. According to the third universal definition of myocardial infarction the following criteria with a clinical presentation consistent with acute myocardial ischemia meets the diagnosis for a myocardial infarction ([place]). Detection of a rise and/or fall of cTnT, with at least one value greater than the 99th percentile (> or = 0.01) and with at least one of the following ?? Symptoms of ischemia ?? New or presumed new significant VO-xaaqiwr-T wave (ST-T) changes or new left bundle branch block (LBBB) ?? Development of pathologic Q waves in the ECG ?? Imaging evidence of new loss of viable myocardium or new regional wall motion abnormality ?? Identification of an intracoronary thrombus by angiography or autopsy Samples for cTnT testing should be obtained serially upon first assessment and again 3 to 6 hours later. If the clinical suspicion is high and previous samples have been negative an additional sample may be indicated. Reference: Third [place] Definition of Myocardial Infarction. Journal of the [place] College of [employer]iology 2012;60:1581-98 Creatine Kinase 101 0 - 160 unit/L [facility] Blood specimen (specimen) 01/08/2018 3:29 PM EDT 01/08/2018 4:00 PM EDT Narrative Resulting Agency Comment Spec In Lab Megan Rodriguez MD CHEMISTRY ORDERABLES [facility] [place] [address] * POCT Glucose (01/08/2018 12:04 PM EDT) [facility] Glucose, POC 133 65 - 199 mg/dL [facility] Comment: Supplemental ranges: <140 mg/dL before meals <180 mg/dL all other times of the day Blood specimen (specimen) 01/08/2018 12:04 PM EDT 01/08/2018 12:04 PM EDT Satnam Brady MD POINT OF CARE TEST O RDERABLES [facility] [place] [address] * CT Head wo Contrast (Generic) (01/08/2018 11:09 AM EDT) Anatomical Region Laterality Modality Head Computed Tomogra phy Impressions 01/08/2018 11:17 AM EDT No acute intracranial process. Narrative 01/08/2018 11:17 AM EDT EXAMINATION: CT HEAD WO CONTRAST (GENERIC) CLINICAL HISTORY: patient has dysphagia TECHNIQUE: CT Head was performed without contrast COMPARISON: None FINDINGS: There is no acute intracranial hemorrhage. ??There is no mass effect, midline shift or extra-axial fluid collection. The ventricles are normal in size. The visualized paranasal sinuses and mastoid air cells are clear. The visualized orbits are unremarkable in appearance. ??The campos-white differentiation is preserved. ??No osseous abnormalities. Procedure Note Sunil Reid MD - 01/08/2018 EXAMINATION: CT HEAD WO CONTRAST (GENERIC) CLINICAL HISTORY: patient has dysphagia TECHNIQUE: CT Head was performed without contrast COMPARISON: None FINDINGS: There is no acute intracranial hemorrhage. There is no masseffect, midline shift or extra-axial fluid collection. The ventricles are normalin size. The visualized paranasal sinuses and mastoid air cells are clear.The visualized orbits are unremarkable in appearance. The campos-white differentiation is preserved. No osseous abnormalities. IMPRESSION No acute intracranial process. Myra Cobb APRN IMG CT ORDERABLES * ECHO COMPLETE W CONTRAST (01/08/2018 9:42 AM EDT) EF 70 HEARTLAB SYSTEM Anatomical Region Laterality Modality Other 01/08/2018 Narrative 01/08/2018 9:47 AM EDT Procedure: ?Transthoracic Echocardiogram Patient: ?NAKIA PUENTES O ? (Age): 1950(67y) Med Rec#: ? [id number] ?Sex: ?F ? Site Loc: ? [facility] ?Ht / Wt: ??168(cm)/88(kg) Pt. Loc: ?Adult Floor ? BSA: ?1.98 Study Date: ?? 01/08/2018 ?Pt. Type: Inpatient Tape: ? [facility] Reading: Jorge Alberto Perry ([id number]) Tobacco Grader: Audie Mir FORREST Diagnosis: *Bradycardia, unspecified (R00.1) CPT Codes: *Echo Full (28917) *Spectral Doppler (62480) *Color Doppler (68670) *Optison ([id number]) Rhythm: ? A-Fib BP: ? 153/99 SUMMARY: 1. There is mild septal hypertrophy of the left ventricle. ?? There is normal global left ventricular systolic function. ??e quantitative left ventricular ejection fraction by biplane Parry's method is 70%. ??ere are no left ventricular segmental wall motion abnormalities. 2. Right ventricular chamber size, wall thickness, and systolic function are within normal limits. 3. The left atrium is severely dilated.(49.6 ml/m2) 4. There is no hemodynamically significant valve disease. 5. When compared with study dated 03/2014, no significant change was found. 6. See remainder of report for additional findings. Findings ? : Study Quality: ? Technically limited Left Ventricle: ? The left ventricular chamber size is normal. ?There is mild septal hypertrophy of the left ventricle. ?No ventricular septal defect is visualized. ?There is normal global left ventricular systolic function. ?The quantitative left ventricular ejection fraction by biplane Parry's method is 70%. ?There are no left ventricular segmental wall motion abnormalities. ?Left ventricular diastolic function is abnormal. ?Doppler assessment is consistent with elevated left sided filling pressure. Left Atrium: ? The left atrium is severely dilated.(49.6 ml/m2) ?No atrial septal defect is visualized. Right Ventricle: ? Right ventricular chamber size, wall thickness, and systolic function are within normal limits. ?The estimated pulmonary artery systolic pressure is 35 mmHg. ?The estimated right atrial pressure is 3 mmHg. Right Atrium: ? The right atrium is normal in size. Aortic Valve: ? The aortic valve is tricuspid. ?The aortic valve leaflets are mildly thickened. ?Systolic excursion of the aortic valve is normal. ?There is no evidence of aortic valve stenosis. ?Mild (1+/4+) aortic valve regurgitation is present. Mitral Valve: ? The mitral valve appears normal in structure and function. ?There is no evidence of mitral valve leaflet prolapse. ?There is mild (1+/4+) mitral regurgitation present. Tricuspid Valve: ? The tricuspid valve appears normal in structure and function. ?There is mild (1+/4+) tricuspid regurgitation present. Pulmonic Valve: ? The pulmonic valve appears normal in structure and function. ?There is trace pulmonic regurgitation present. Pericardium: ? The pericardium appears normal and there is no evidence of a pericardial effusion. Aorta: ? The aortic root is normal in size. ?The ascending aorta is normal in size. ?There is no evidence of coarctation of the aorta. Pulmonary Artery: ? The main pulmonary artery appears normal. Venous: ? The inferior vena cava appears normal in size. ?There is a greater than 50% respiratory change in the inferior vena cava dimension. Misc: ? See remainder of report for additional findings. ?Two-dimensional echo, spectral Doppler and color Doppler performed. ?Optison contrast (one 3 ml vial) was used to enhance endocardial definition. Excess contrast was discarded. Chambers 2D ?Value ?Units (Range) ? IVSd [...] ? Mid-Inferior ?Normal ? Mid-Inferoseptal ?Normal ? Range-Septal ? Normal ? Range-Anterior ? Normal ? Range-Lateral ?Normal ? Range-Inferior ? Normal ? Range-Tip ?Normal ? This report has been electronically signed by: Jorge Alberto Perry M.D. ? 01/08/2018 09:46:49 Images reviewed and interpretation verified [facility] Cardiac Ultrasound Laboratory Procedure Note Jorge Alberto Perry MD - 01/08/2018 Procedure: Transthoracic Echocardiogram Patient: NAKIA SOLOMON(Age): 1950(67y) Med Rec#: [id number] Sex: F [place] [facility] [place]t / Wt: 168(cm)/88(kg) Pt. Loc: Adult Floor BSA: 1.98 Study Date: 01/08/2018 Pt. Type: Inpatient Tape: Referring: [facility] Reading: Jorge Alberto Perry ([id number]) Tobacco Grader: Audie Mir [facility] Diagnosis: *Bradycardia, unspecified (R00.1) CPT Codes: *Echo Full (46303) *Spectral Doppler (57628) *Color Doppler (51056) *Optison ([id number]) Rhythm: A-Fib BP: 153/99 SUMMARY: 1. There [...] dated 03/2014, no significant change was found. 6. See remainder of report for additional findings. Findings : Study Quality: Technically limited Left Ventricle: The left ventricular chamber size is normal. There is mild septal hypertrophy of the left ventricle. No ventricular septal defect is visualized. There is normal global left ventricular systolic function. The quantitative left ventricular ejection fraction by biplane Parry's method is 70%. There are no left ventricular segmental wall motion abnormalities. Left ventricular diastolic function is abnormal. Doppler assessment is consistent with elevated left sided filling pressure. Left Atrium: The left atrium is severely dilated.(49.6 ml/m2) No atrial septal defect is visualized. Right Ventricle: Right ventricular chamber size, wall thickness, and systolic function are within normal limits. The estimated pulmonary artery systolic pressure is 35 mmHg. The estimated right atrial pressure is 3 mmHg. Right Atrium: The right atrium is normal in size. Aortic Valve: The aortic valve is tricuspid. The aortic valve leaflets are mildly thickened. Systolic excursion of the aortic valve is normal. There is no evidence of aortic valve stenosis. Mild (1+/4+) aortic valve regurgitation is present. Mitral Valve: The mitral valve appears normal in structure and function. There is no evidence of mitral valve leaflet prolapse. There is mild (1+/4+) mitral regurgitation present. Tricuspid Valve: The tricuspid valve appears normal in structure and function. There is mild (1+/4+) tricuspid regurgitation present. Pulmonic Valve: The pulmonic valve appears normal in structure and function. There is trace pulmonic regurgitation present. Pericardium: The pericardium appears normal and there is no evidence of a pericardial effusion. Aorta: The aortic root is normal in size. The ascending aorta is normal in size. There is no evidence of coarctation of the aorta. Pulmonary Artery: The main pulmonary artery appears normal. Venous: The inferior vena cava appears normal in size. There is a greater than 50% respiratory change in the inferior vena cava dimension. Misc: See remainder of report for additional findings. Two-dimensional echo, spectral Doppler and color Doppler performed. Optison contrast (one 3 ml vial) was used to enhance endocardial definition. Excess contrast was discarded. Chambers 2D Value Units (Range) IVSd (2D) [...] Normal Mid-Posterolateral Normal Mid-Inferior Normal Mid-Inferoseptal Normal Range-Septal Normal Range-Anterior Normal Range-Lateral Normal Range-Inferior Normal Range-Tip Normal This report has been electronically signed by: Jorge Alberto Perry M.D. 01/08/2018 09:46:49 Images reviewed and interpretation verified [facility] Cardiac Ultrasound Laboratory Megan Rodriguez MD ECHO ORDERABLES * Differential, Automated (01/08/2018 9:41 AM EDT) Neutrophil % 60.0 % [facility] Neutrophil Absolute 4.67 1.70 - 6.10 x10(3)/[facility] LABORATORY Lymph % 29.0 % [facility] Lymphocytes Abs 2.2 0.9 - 3.2 x10(3)/[facility] LABORATORY Monocyte % 8.9 % [facility] Monocyte Abs 0.7 0.3 - 0.9 x10(3)/[facility] LABORATORY Eos % 1.2 % [facility] Eosinophils Abs 0.1 0.0 - 0.4 x10(3)/[facility] LABORAT[facility] Basophil % 0.6 % [facility] Baso Absolute 0.0 0.0 - 0.1 x10(3)/[facility] LABORATORY Immature Gran % 0.30 % [facility] Comment: Immature granulocytes(IG's)percentage and absolute count will include metamyelocytes, myelocytes, and promyelocytes. Blood smears from CBCs yielding IG's will be scanned manually for concordance. If this scan disagrees with the automated IG or if promyelocytes are noted, a manual differential will be performed. Immature Gran Absolute 0.02 0.00 - 0.04 x10(3)/[facility] LABORATORY Blood specimen (specimen) 01/08/2018 9:41 AM EDT 01/08/2018 9:56 AM EDT Narrative Resulting Agency Comment Spec In Lab Megan Rodriguez MD HEMATOLOGY ORDERABLE S [facility] [place] [address] * (ABNORMAL) Hemogram (01/08/2018 9:41 AM EDT) White Blood Cell 7.8 4.0 - 9.5 x10(3)/[facility] LABORATORY Red Blood Cell 4.40 4.00 - 5.21 x10(6)/[facility] LABORATORY Hemoglobin 10.8(L) 11.7 - 15.5 gm/dL [facility] Hematocrit 35.6(L) 35.7 - 45.8 % [facility] Mean Cell Volume 80.9(L) 82.6 - 94.[address] [facility] Mean Cell Hemoglobin 24.5(L) 27.1 - 32.[address] [facility] Mean Cell Hemoglobin Concentration 30.3(L) 31.7 - 35.0 gm/dL [facility] Platelet 383(H) 145 - 357 x10(3)/[facility] LABORATORY RDW Standard Deviation 44.7 37.0 - 46.0 [facility] LABORATORY RDW coefficient of variation 15.0(H) 11.5 - 14.1 % [facility] Mean Platelet Volume 10.5 7.6 - 12.9 [facility] LABORATORY NRBC% auto 0.0 % [facility] NRBC Absolute 0.000 0.000 - 0.000 x10(3)/[facility] LABORATORY Blood specimen (specimen) 01/08/2018 9:41 AM EDT 01/08/2018 9:56 AM EDT Narrative Resulting Agency Comment Spec In Lab Megan Rodriguez MD HEMATOLOGY ORDERABLE S [facility] [place] [address] * Heparin (unfractionated) Level (01/08/2018 9:41 AM EDT) Pathologist [facility] UF Heparin 0.40 IU/mL [facility] Comment: Guidelines for therapeutic unfractionated heparin levels are summarized below. Heparin (Anti-Xa) levels should be determined in a plasma sample that has been drawn 6 hours after a dose change i.e., steady-state has been reached. DRUG ?Dosing Schedule ? Target Peak Steady-State ?Heparin (Anti-Xa) Levels (Units/mL) Unfractionated ?Continuous infusion ?0.3-0.7 Heparin ?0.3-0.6 for some neurology indications Blood specimen (specimen) 01/08/2018 9:41 AM EDT 01/08/2018 9:56 AM EDT Narrative Resulting Agency Comment Spec In Lab Megan Rodriguez MD HEMATOLOGY ORDERABLE S [facility] [place] [address] * Cardiac Enzymes (LEB/CGP) (01/08/2018 9:41 AM EDT) Pathologist [facility] Troponin-T <0.01 0.00 - 0.00 ng/mL [facility] Comment: The 99th percentile for Troponin T is less than 0.01 ng/mL, any detectable cTnT concentration using this assay should be considered elevated. According to the third universal definition of myocardial infarction the following criteria with a clinical presentation consistent with acute myocardial ischemia meets the diagnosis for a myocardial infarction ([place]). Detection of a rise and/or fall of cTnT, with at least one value greater than the 99th percentile (> or = 0.01) and with at least one of the following ?? Symptoms of ischemia ?? New or presumed new significant LB-iovqibm-F wave (ST-T) changes or new left bundle branch block (LBBB) ?? Development of pathologic Q waves in the ECG ?? Imaging evidence of new loss of viable myocardium or new regional wall motion abnormality ?? Identification of an intracoronary thrombus by angiography or autopsy Samples for cTnT testing should be obtained serially upon first assessment and again 3 to 6 hours later. If the clinical suspicion is high and previous samples have been negative an additional sample may be indicated. Reference: Third [place] Definition of Myocardial Infarction. Journal of the [place] [employer] 2012;60:1581-98 Creatine Kinase 112 0 - 160 unit/L [facility] Blood specimen (specimen) 01/08/2018 9:41 AM EDT 01/08/2018 9:56 AM EDT Narrative Resulting Agency Comment Spec In Lab Megan Rodriguez MD CHEMISTRY ORDERABLES Performing Organization Address [facility] Co de Phone Number [facility] [place] [address] * (ABNORMAL) POCT Glucose (01/08/2018 7:56 AM EDT) [facility] Glucose, POC 272(H) 65 - 199 mg/dL [facility] Comment: Supplemental ranges: <140 mg/dL before meals <180 mg/dL all other times of the day Blood specimen (specimen) 01/08/2018 7:56 AM EDT 01/08/2018 7:56 AM EDT Satnam Brady MD POINT OF CARE TEST O RDERABLES Performing Organization Address [facility] Co de Phone Number [facility] [place] [address] * EKG 12 Lead (01/08/2018 1:33 AM EDT) Pathologist [facility] Ventricular rate 96 BPM MUSE SYSTEM Atrial Rate 89 BPM MUSE SYSTEM QRS Duration 74 ms MUSE SYSTEM Q-T Interval 352 ms MUSE SYSTEM QTC Calculated (Bezet) 444 ms MUSE SYSTEM Calculated R [place] 12 degrees MUSE SYSTEM Calculated T [place] 0 degrees MUSE SYSTEM INTERPRETATION Atrial fibrillation Low voltage QRS Abnormal ECG When compared with ECG of 30-MAR-2014 06:40, Atrial fibrillation has replaced Sinus rhythm Vent. rate has increased BY ??33 BPM Confirmed by José Manuel Jett MD ([id number]) on 01/08/2018 9:22:43 AM MUSE SYSTEM 01/08/2018 1:33 AM EDT 01/08/2018 9:22 AM EDT Megan Rodriguez MD ECG ORDERABLES MUSE SYSTEM * (ABNORMAL) BMP w/fasting Glucose (01/08/2018 1:29 AM EDT) Glucose Fasting 241(H) 65 - 99 mg/dL [facility] Comment: ?Fasting* Glucose Interpretive Criteria Normal [...] of Diabetes Mellitus, Position Statement from the [place] [employer]. ??Diabetes Care, Volume 33, Supplement 1, Jun 2009 Blood Urea Nitrogen 16 8 - 18 mg/dL [facility] Creatinine 0.91 0.70 - 1.20 mg/dL [facility] Sodium 137 135 - 145 mmol/L [facility] Potassium 4.3 3.5 - 5.0 mmol/L [facility] Comment: Please note: ??Patients with WBC >100,000 may have falsely elevated Potassium levels. ??For accurate Potassium quantification in these patients send serum separator tube (gold top) for subsequent determinations. ??Contact the Clinical Chemistry Laboratory if there are any questions. Chloride 98 98 - 107 mmol/L [facility] Carbon Dioxide 23 22 - 31 mmol/L [facility] Anion Gap 16(H) 5 - 15 mmol/L [facility] Calcium 8.8 8.5 - 10.5 mg/dL [facility] Est Glomerular Filtration Rate 64 >=60 mL/min/1. 73 m?? [facility] Comment: The eGFR was calculated using the CKD-EPI equation. As with all creatinine based estimates of kidney function, eGFR values calculated with the CKD-EPI equation are not accurate in patients with acute kidney failure, extremes of body mass or the acutely ill. [email or web address]mentsnkdep [email or web address]mentsnkf eGFR 75 >=60 mL/min/1. 73 m?? [facility] Comment: The eGFR was calculated using the CKD-EPI equation. As with all creatinine based estimates of kidney function, eGFR values calculated with the CKD-EPI equation are not accurate in patients with acute kidney failure, extremes of body mass or the acutely ill. [email or web address]nkdep [email or web address] – [place] Blood specimen (specimen) 01/08/2018 1:29 AM EDT 01/08/2018 1:42 AM EDT Narrative Resulting Agency Comment Spec In Lab Megan Rodriguez MD CHEMISTRY ORDERABLES [facility] [place] [address] * Differential, Automated (01/08/2018 1:29 AM EDT) Neutrophil % 66.1 % [facility] Neutrophil Absolute 6.01 1.70 - 6.10 x10(3)/[facility] LABORATORY Lymph % 23.2 % [facility] Lymphocytes Abs 2.1 0.9 - 3.2 x10(3)/[facility] LABORATORY Monocyte % 9.0 % [facility] Monocyte Abs 0.8 0.3 - 0.9 x10(3)/[facility] LABORATORY Eos % 0.7 % [facility] Eosinophils Abs 0.1 0.0 - 0.4 x10(3)/[facility] LABORATORY Basophil % 0.7 % [facility] Baso Absolute 0.1 0.0 - 0.1 x10(3)/[facility] LABORATORY Immature Gran % 0.30 % [facility] Comment: Immature granulocytes(IG's)percentage and absolute count will include metamyelocytes, myelocytes, and promyelocytes. Blood smears from CBCs yielding IG's will be scanned manually for concordance. If this scan disagrees with the automated IG or if promyelocytes are noted, a manual differential will be performed. Immature Gran Absolute 0.03 0.00 - 0.04 x10(3)/[facility] LABORATORY Blood specimen (specimen) 01/08/2018 1:29 AM EDT 01/08/2018 1:42 AM EDT Narrative Resulting Agency Comment Spec In Lab Megan Rodriguez MD HEMATOLOGY ORDERABLE S [facility] [place] [address] * (ABNORMAL) Hemogram (01/08/2018 1:29 AM EDT) White Blood Cell 9.1 4.0 - 9.5 x10(3)/ L [facility] Red Blood Cell 4.22 4.00 - 5.21 x10(6)/mc L [facility] Hemoglobin 10.4(L) 11.7 - 15.5 gm/dL [facility] Hematocrit 34.3(L) 35.7 - 45.8 % [facility] Mean Cell Volume 81.3(L) 82.6 - 94.[address] [facility] Mean Cell Hemoglobin 24.6(L) 27.1 - 32.[address] [facility] Mean Cell Hemoglobin Concentration 30.3(L) 31.7 - 35.0 gm/dL [facility] Platelet 391(H) 145 - 357 x10(3)/mc L [facility] RDW Standard Deviation 43.3 37.0 - 46.[address] [facility] RDW coefficient of variation 14.8(H) 11.5 - 14.1 % [facility] Mean Platelet Volume 10.4 7.6 - 12.[address] [facility] NRBC% auto 0.0 % [facility] NRBC Absolute 0.000 0.000 - 0.000 x10(3)/mc L [facility] Blood specimen (specimen) 01/08/2018 1:29 AM EDT 01/08/2018 1:42 AM EDT Narrative Resulting Agency Comment Spec In Lab Megan Rodriguez MD HEMATOLOGY ORDERABLE S Performing Organization Address City/[facility]/ZIP Co de Phone Number [facility] [place] [address] * LDL Cholesterol, Direct (01/08/2018 1:29 AM EDT) LDL Cholesterol, Direct 62 mg/dL [facility] Comment: Lowest Risk: <100 mg/dL Lower Risk: 100-129 mg/dL Borderline High Risk: 130-159 mg/dL High Risk: 160-189 mg/dL Very High Risk: >rb=780 mg/dL Blood specimen (specimen) 01/08/2018 1:29 AM EDT 01/08/2018 1:42 AM EDT Narrative Resulting Agency Comment Spec In Lab Megan Rodriguez MD CHEMISTRY ORDERABLES Performing Organization Address City/[facility]/ZIP Co de Phone Number [facility] [place] [address] * (ABNORMAL) Hemoglobin A1c (01/08/2018 1:29 AM EDT) Hemoglobin A1c 10.8(H) 4.3 - 5.6 % [facility] Comment: Reference Range: 4.3 - 5.6% 5.7 - 6.4% - Increased Risk of Developing Diabetes Mellitus >=6.5% - Consistent with diagnosis of Diabetes Mellitus In the absence of hyperglycemia (i.e. plasma glucose > 200 mg/dL) or classic symptoms of hyperglycemia a repeat measurement of HbA1c should be performed on a separate sample to confirm the diagnosis. Diagnosis and Classification of Diabetes Mellitus, Diabetes Care 2013; 36: Suppl. 1, S67-74 Estimated Average Glucose 263 mg/dL [facility] Comment: eAG equivalents for HbA1c percentages: HbA1c(%) ?eAG(mg/dL) 6.0 ?126 6.5 ?140 7.0 ?154 7.5 ?169 8.0 ?183 8.5 ?197 9.0 ?212 9.5 ?226 10.0 ? 240 Limitations: The eAG calculation has not been validated on women, individuals below 18 years old and above 70 years old, and individuals with hemoglobinopathies. Additional resources are available on the ADA website. Mike NGUYEN, Jacqueline J, Kadi R, et al. ??Translating the A1C assay into estimated average glucose values. ??Diabetes Care 2008:31(8):2702-7779. Blood specimen (specimen) 01/08/2018 1:29 AM EDT 01/08/2018 1:42 AM EDT Narrative Resulting Agency Comment Spec In Lab Megan Rodriguez MD CHEMISTRY ORDERABLES [facility] [place] [address] * Cardiac Enzymes (LEB/CGP) (01/08/2018 1:29 AM EDT) Pathologist [facility] Troponin-T <0.01 0.00 - 0.00 ng/mL [facility] Comment: The 99th percentile for Troponin T is less than 0.01 ng/mL, any detectable cTnT concentration using this assay should be considered elevated. According to the third universal definition of myocardial infarction the following criteria with a clinical presentation consistent with acute myocardial ischemia meets the diagnosis for a myocardial infarction ([place]). Detection of a rise and/or fall of cTnT, with at least one value greater than the 99th percentile (> or = 0.01) and with at least one of the following ?? Symptoms of ischemia ?? New or presumed new significant KM-qyrxdgz-M wave (ST-T) changes or new left bundle branch block (LBBB) ?? Development of pathologic Q waves in the ECG ?? Imaging evidence of new loss of viable myocardium or new regional wall motion abnormality ?? Identification of an intracoronary thrombus by angiography or autopsy Samples for cTnT testing should be obtained serially upon first assessment and again 3 to 6 hours later. If the clinical suspicion is high and previous samples have been negative an additional sample may be indicated. Reference: Third [place] Definition of Myocardial Infarction. Journal of the [place] College [employer]iology 2012;60:1581-98 Creatine Kinase 107 0 - 160 unit/L [facility] Blood specimen (specimen) 01/08/2018 1:29 AM EDT 01/08/2018 1:42 AM EDT Narrative Resulting Agency Comment Spec In Lab Megan Rodriguez MD CHEMISTRY ORDERABLES [facility] [place] [address] * Lipid Panel (01/08/2018 1:29 AM EDT) [facility] Cholesterol, Total 118 mg/dL [facility] Comment: Lower Risk: <200 mg/dL Average Risk: 200-239 mg/dL Higher Risk: >te=311 mg/dL Triglyceride 51 mg/dL [facility] Comment: Average Risk/Lower Risk: <150 mg/dL Borderline High Risk: 150-199 mg/dL High Risk: 200-499 mg/dL Very High Risk: >yh=667 mg/dL HDL Cholesterol 51 mg/dL [facility] Comment: Males: ?? Higher Risk: <40 mg/dL Females: ?? HIgher Risk: <50 mg/dL LDL Cholesterol 57 mg/dL [facility] Comment: Lowest Risk: <100 mg/dL Lower Risk: 100-129 mg/dL Borderline High Risk: 130-159 mg/dL High Risk: 160-189 mg/dL Very High Risk: >jh=337 mg/dL Cholesterol/HDL Ratio 2.[address] [facility] Lipid Interpretation See Note [facility] Comment: Lipid management should be guided by a patient? s ASCVD risk, goals and preferences. ACC/AHA Guidelines recommend high intensity statin if clinical ASCVD or LDL greater than or equal to 190 mg/dL. http://theeventwall.com/FQJ-FOF-Msyrvqgjb Adults aged 40-75 with LDL 70-189 mg/dL should have their 10 year ASCVD risk estimated with the ACC/AHA ASCVD risk senior designer http://tools.acc.org/WJUCE-Upna-Hetulbiem/ Statin should be discussed if risk greater than or equal to 7.5% in non-diabetics. With diabetes, moderate intensity statin is recommended if risk less than 7.5%, high intensity if risk greater than or equal to 7.5%. Annual lipid monitoring on statins is not necessary. Evaluate secondary causes of Triglycerides greater than 500 mg/dL or LDL greater than 190 mg/dL: See table 6 of ACC/AHA Guideline. Lifestyle modification is a critical component of ASCVD risk reduction. Blood specimen (specimen) 01/08/2018 1:29 AM EDT 01/08/2018 1:42 AM EDT Narrative Resulting Agency Comment Spec In Lab Megan Rodriguez MD CHEMISTRY ORDERABLES [facility] [place] [address] * APTT (01/08/2018 1:29 AM EDT) Partial Thromboplastin Time 31 25 - [address] [facility] Comment: The PTT is NOT appropriate for heparin monitoring. Use the Anti-Xa level for heparin monitoring (HEP UFH) or LMWH monitoring (HEP LMW). A PTT less than 37 seconds generally indicates adequate hemostasis. Blood specimen (specimen) 01/08/2018 1:29 AM EDT 01/08/2018 1:42 AM EDT Narrative Resulting Agency Comment Spec In Lab Megan Rodriguez MD HEMATOLOGY ORDERABLE S Performing Organization Address [facility] Co de Phone Number [facility] [place] [address] * (ABNORMAL) Prothrombin Time (01/08/2018 1:29 AM EDT) Prothrombin Time 13.1(H) 9.4 - 12.[address] [facility] International Normalization Ratio 1.2 [facility] Comment: An INR <2.0 indicates [...] be appropriate depending on clinical circumstances. Blood specimen (specimen) 01/08/2018 1:29 AM EDT 01/08/2018 1:42 AM EDT Narrative Resulting Agency Comment Spec In Lab Megan Rodriguez MD HEMATOLOGY ORDERABLE S Performing Organization Address [facility] Co de Phone Number [facility] [place] [address] * Hepatic Function Panel (01/08/2018 1:29 AM EDT) Protein, Total 6.9 6.1 - 8.0 gm/dL [facility] Albumin 3.6 3.2 - 5.2 gm/dL [facility] Aspartate Aminotransferase 11 0 - 30 unit/L [facility] Alanine Aminotransferase 13 0 - 30 unit/L [facility] Alkaline Phosphatase 48 40 - 104 unit/L [facility] Bilirubin, Total 0.2 0.2 - 1.3 mg/dL [facility] Bilirubin, Direct 0.1 0.0 - 0.3 mg/dL [facility] Blood specimen (specimen) 01/08/2018 1:29 AM EDT 01/08/2018 1:42 AM EDT Narrative Resulting Agency Comment Spec In Lab Megan Rodriguez MD CHEMISTRY ORDERABLES [facility] [place] [address] * (ABNORMAL) pro-Brain Natriuretic Peptide (01/08/2018 1:29 AM EDT) NT-proBNP 609(H) <=125 pg/mL [facility] Blood specimen (specimen) 01/08/2018 1:29 AM EDT 01/08/2018 1:42 AM EDT Narrative Resulting Agency Comment Spec In Lab Megan Rodriguez MD CHEMISTRY ORDERABLES Performing Organization Address City/[facility]/ZIP Co de Phone Number [facility] [place] [address] * TSH (01/08/2018 1:29 AM EDT) Thyroid Stimulating Hormone 1.37 0.27 - 4.20 mlU/ML [facility] Blood specimen (specimen) 01/08/2018 1:29 AM EDT 01/08/2018 1:42 AM EDT Narrative Resulting Agency Comment Spec In Lab Megan Rodriguez MD CHEMISTRY ORDERABLES [facility] [place] [address] * Phosphorus (01/08/2018 1:29 AM EDT) Phosphorus 3.9 2.5 - 4.5 mg/dL [facility] Blood specimen (specimen) 01/08/2018 1:29 AM EDT 01/08/2018 1:42 AM EDT Narrative Resulting Agency Comment Spec In Lab Megan Rodriguez MD CHEMISTRY ORDERABLES Performing Organization Address [facility] Co de Phone Number [facility] [place] [address] * (ABNORMAL) Magnesium (01/08/2018 1:29 AM EDT) Magnesium 0.67(L) 0.69 - 1.07 mmol/L [facility] Blood specimen (specimen) 01/08/2018 1:29 AM EDT 01/08/2018 1:42 AM EDT Narrative Resulting Agency Comment Spec In Lab Megan Rodriguez MD CHEMISTRY ORDERABLES Performing Organization Address [facility] de Phone Number [facility] [place] [address] * (ABNORMAL) POCT Glucose (01/08/2018 1:28 AM EDT) Glucose, POC 234(H) 65 - 199 mg/dL [facility] Comment: Supplemental ranges: <140 mg/dL before meals <180 mg/dL all other times of the day Blood specimen (specimen) 01/08/2018 1:28 AM EDT 01/08/2018 1:28 AM EDT Rafat Jerome MD POINT OF CARE TEST O RDERABLES Performing Organization Address [facility] Co de Phone Number [facility] [place] [address] documented in this encounter Visit Diagnoses Diagnosis Symptomatic bradycardia- Primary Other specified cardiac dysrhythmias Symptomatic bradycardia Other specified cardiac dysrhythmias Diabetes mellitus Type [...] Dose Rate Site acetaminophen (TYLENOL) tablet 650 mg 650 mg, Oral, EVERY 4 HOURS PRN, Starting on Thu01/08/18 at 0055, Until Thu01/11/18 at 1442, Pain, Headaches, Maximum dose of acetaminophen is 4000 mg from all sources in 24 hours., Routine Given 01/10/2018 9:32 AM EDT 650 mg aspirin chewable tablet 81 mg 81 mg, Oral, DAILY, First dose on Thu01/08/18 at 0145, Until Discontinued, Routine Given 01/11/2018 8:28 AM EDT 81 mg Given 01/10/2018 9:31 AM EDT 81 mg Given 01/09/2018 8:21 AM EDT 81 mg dextrose 50% IV syringe 25-50 mL 25-50 mL (12.5-25 g), Intravenous, EVERY 1 HOUR PRN, Starting on Thu01/09/18 at 1354, Until Thu01/11/18 at [...] DILTiazem (CARDIZEM CD) ER capsule 180 mg 180 mg, Oral, DAILY, First dose on Thu01/11/18 at 0900, Until Discontinued, DO NOT CRUSH OR OPEN, Routine Given 01/11/2018 8:29 AM EDT 180 mg dilTIAZem (CARDIZEM) tablet 30 mg 30 mg, Oral, EVERY 6 HOURS SCHEDULED, First dose on Thu01/08/18 at 0800, Until Discontinued, Routine Given 01/10/2018 5:13 AM EDT 30 mg Given 01/09/2018 11:27 PM EDT 30 mg Given 01/09/2018 5:26 PM EDT 30 mg dilTIAZem (CARDIZEM) tablet 30 mg 30 mg, Oral, ONCE, 1 dose, On Thu01/10/18 at 0900, Routine Given 01/10/2018 9:31 AM EDT 30 mg DILTiazem (CARDIZEM) tablet 60 mg 60 mg, Oral, EVERY 8 HOURS SCHEDULED, 2 doses, First dose (after last modification) on Thu01/10/18 at 1400, Last dose on Thu01/10/18 at 2200, Routine Given 01/10/2018 8:49 PM EDT 60 mg Given 01/10/2018 2:56 PM EDT 60 mg docusate sodium (COLACE) capsule 100 mg 100 mg, Oral, 2 TIMES DAILY, First dose on Thu01/08/18 at 0115, Until Discontinued, Routine Given 01/08/2018 9:44 AM EDT 100 mg famotidine (PEPCID) tablet 20 mg 20 mg, Oral, DAILY, First dose on Thu01/08/18 at 0900, Until Discontinued, Routine Given 01/11/2018 8:29 AM EDT 20 mg Given 01/10/2018 9:32 AM EDT 20 mg Given 01/09/2018 8:21 AM EDT 20 mg glucagon (human recombinant) injection SolR 1 mg 1 mg, Intramuscular, EVERY 1 HOUR PRN, Starting on 01/09/18 at 1354, Until 01/11/18 at 1442, [...] active insulin., Routine heparin 25,000 units in dextrose 5% 500 mL infusion 0-5,000 Units/hr [...] required Heparin UFH Level - Per Protocol, Routine, Indication: ACS (STEMI vs NSTEMI vs UA) New Bag 01/08/2018 2:18 AM EDT 1,000 Units/hr 20 mL/hr heparin 25,000 units in dextrose 5% 500 mL infusion 0-5,000 Units/hr [...] required Heparin UFH Level - Per Protocol, Routine, Indication: Atrial Fibrillation New Bag 01/09/2018 1:36 AM EDT 1,300 Units/hr 26 mL/hr Restarted 01/08/2018 1:01 PM EDT 1,300 Units/hr 26 mL/hr insulin glargine VIAL injection 20 Units 20 Units, Subcutaneous, EVERY 24 HOURS, First dose on Thu01/08/18 at 0130, Until Discontinued, Routine Given 01/08/2018 2:09 AM EDT 20 Units insulin glargine VIAL injection 40 Units 40 Units, Subcutaneous, EVERY 24 HOURS, First dose on Thu01/09/18 at 2100, Until Discontinued, Routine Given 01/10/2018 8:49 PM EDT 40 Units Given 01/09/2018 8:22 PM EDT 40 Units insulin lispro (HumaLOG) VIAL injection 2-8 Units 2-8 Units, Subcutaneous, 4 TIMES DAILY [...] told to do so., Routine Given 01/08/2018 4:22 PM EDT 8 Units Given 01/08/2018 8:39 AM EDT 8 Units Given 01/08/2018 2:04 AM EDT 6 Units insulin lispro (HumaLOG) VIAL injection 2-8 Units 2-8 Units, Subcutaneous, 3 TIMES DAILY [...] told to do so., Routine Given 01/09/2018 11:51 AM EDT 8 Unit s Given 01/09/2018 10:35 AM EDT 8 Units Given 01/09/2018 8:00 AM EDT 8 Units insulin lispro (HumaLOG) VIAL injection 3-12 Units 3-12 Units, Subcutaneous, 3 TIMES [...] told to do so., Routine Given 01/11/2018 12:18 PM EDT 12 Units Given 01/11/2018 8:36 AM EDT 6 Units Given 01/10/2018 5:09 PM EDT 6 Units insulin lispro (HumaLOG) VIAL injection 8 Units 8 Units, Subcutaneous, 3 TIMES DAILY WITH MEALS, First dose on Thu01/09/18 at 1700, Until Discontinued, [employer] If a range is ordered, give smaller dose with less carbohydrate intake. Hold if not eating, Routine Given 01/11/2018 1:24 PM EDT 8 Units Given 01/11/2018 8:37 AM EDT 8 Units Given 01/10/2018 5:09 PM EDT 8 Units lidocaine (XYLOCAINE) 10 mg/mL (1 %) injection 3 mg 3 mg (0.3 mL), Subcutaneous, ONCE PRN, 1 dose, Starting on Thu01/08/18 at 0053, Until Thu01/11/18 at 1442, for discomfort with PIV insertion, Routine lisinopril (PRINIVIL;ZESTRIL) tablet 10 mg 10 mg, Oral, DAILY, First dose on Thu01/08/18 at 0900, Until Discontinued, Routine Given 01/11/2018 8:28 AM EDT 10 mg Given 01/10/2018 9:31 AM EDT 10 mg Given 01/09/2018 8:22 AM EDT 10 mg magnesium oxide (MAG-OX) tablet 400 mg 400 mg, Oral, 2 TIMES DAILY, First dose on Thu01/08/18 at 0245, Until Discontinued, Routine Given 01/11/2018 8:28 AM EDT 400 mg Given 01/10/2018 8:49 PM EDT 400 mg Given 01/10/2018 9:32 AM EDT 400 mg magnesium sulfate 1g in dextrose 5% 100mL 1 g, Intravenous, EVERY 2 HOURS, 3 doses, First dose on Thu01/08/18 at 0245, Last dose on Thu01/08/18 at 0645, Administer over 60 Minutes New Bag 01/08/2018 6:32 AM EDT 1 g 100 mL/hr New Bag 01/08/2018 4:28 AM EDT 1 g 100 mL/hr New Bag 01/08/2018 2:42 AM EDT 1 g 100 mL/hr magnesium sulfate 1g in dextrose 5% 100mL 1 g, Intravenous, ONCE, 1 dose, On Thu01/10/18 at 0800, Administer over 60 Minutes New Bag 01/10/2018 7:53 AM EDT 1 g 100 mL/hr metoprolol succinate (TOPROL-XL) XL tablet 100 mg 100 mg, Oral, DAILY, First dose on Thu01/11/18 at 0900, Until Discontinued, DO NOT CRUSH OR OPEN, Routine Given 01/11/2018 8:38 AM EDT 100 mg metoprolol tartrate (LOPRESSOR) tablet 25 mg 25 mg, Oral, EVERY 12 HOURS SCHEDULED (2 times per day), First dose on Thu01/08/18 at 0300, Until Discontinued, Routine Given 01/08/2018 2:53 AM EDT 25 mg metoprolol tartrate (LOPRESSOR) tablet 25 mg 25 mg, Oral, EVERY 6 HOURS SCHEDULED, First dose (after last modification) on Thu01/08/18 at 0745, Until Discontinued, Routine Given 01/09/2018 11:51 AM EDT 25 mg Given 01/09/2018 6:07 AM EDT 25 mg Given 01/08/2018 11:56 PM EDT 25 mg metoprolol tartrate (LOPRESSOR) tablet 25 mg 25 mg, Oral, ONCE, 1 dose, On 01/09/18 at 1245, Routine Given 01/09/2018 2:47 PM EDT 25 mg metoprolol tartrate (LOPRESSOR) tablet 50 mg 50 mg, Oral, EVERY 12 HOURS SCHEDULED (2 times per day), First dose (after last modification) on 01/09/18 at 1415, Until Discontinued, Routine Given 01/09/2018 8:30 PM EDT 50 mg metoprolol tartrate (LOPRESSOR) tablet 50 mg 50 mg, Oral, EVERY 12 HOURS SCHEDULED (2 times per day), First dose (after last modification) on Thu01/10/18 at 0900, Until Discontinued, Routine Given 01/10/2018 8:49 PM EDT 50 mg Given 01/10/2018 9:31 AM EDT 50 mg nitroGLYcerin (NITROSTAT) SL tablet 0.4 mg 0.4 mg, Sublingual, EVERY 5 MIN PRN, Starting on Thu01/08/18 at 0053, Until Thu01/11/18 at 1442, Chest pain, May repeat every 5 minutes for a total of three doses. Notify provider if chest pain not relieved with nitroglycerin. Do not administer nitroglycerin if the patient has received or taken phosphodiesterase (PDE-5) inhibitors such as sildenafil, tadalafil or vardenafil within the last 24 to 72 hours., Routine perflutren protein-A microspheres (OPTISON) 0.22 mg/mL injection 1.5 mL 1.5 mL, Intravenous, ONCE PRN, 1 dose, Starting on Thu01/08/18 at 0942, Until Thu01/08/18 at 0915, for enhancement of sub-optimal echo images, Echo Lab (Intra-Procedure), Routine Given 01/08/2018 9:15 AM EDT 1.5 mLs rivaroxaban (XARELTO) tablet 20 mg 20 mg, Oral, EVERY EVENING, First dose on Thu01/09/18 at 1500, Until Discontinued, Routine, Restricted anticoagulant, choose the most appropriate response: Approved indication of non-valvular atrial fibrillation Given 01/10/2018 5:09 PM EDT 20 mg Given 01/09/2018 2:46 PM EDT 20 mg simvastatin (ZOCOR) tablet 20 mg 20 mg, Oral, NIGHTLY, First dose on Thu01/08/18 at 2100, Until Discontinued Given 01/10/2018 8:49 PM EDT 20 mg Given 01/09/2018 8:23 PM EDT 20 mg Given 01/08/2018 9:18 PM EDT 20 mg sodium chloride 0.9 % flush 5 mL 5 mL, Intravenous, EVERY 12 HOURS, First dose on Thu01/08/18 at 0115, Until Discontinued, Routine Given 01/11/2018 1:15 AM EDT 5 mLs Given 01/10/2018 8:50 PM EDT 5 mLs Given 01/08/2018 12:23 PM EDT 5 mLs sodium chloride 0.9 % flush 5 mL 5 mL, Intravenous, 2 TIMES DAILY, First dose on Thu01/08/18 at 0115, Until Discontinued, Routine Given 01/11/2018 9:00 AM EDT 5 mLs Given 01/10/2018 8:51 PM EDT 5 mLs Given 01/09/2018 8:24 PM EDT 5 mLs sodium chloride 0.9 % flush 5-20 mL 5-20 mL, Intravenous, EVERY 1 MIN PRN, Starting on Thu01/08/18 at 0054, Until Thu01/11/18 at 1442, flush, Flush pertains to all indwelling lines. Flush per protocol found in the job aid using the link provided on this medication record., Routine sodium chloride 0.9 % flush 5-20 mL 5-20 mL, Intravenous, EVERY 1 MIN PRN, Starting on Thu01/08/18 at 0053, Until Thu01/11/18 at 1442, flush, Flush pertains to all indwelling lines. Flush per protocol found in the job aid using the link provided on this medication record., Routine documented in this encounter Active and Recently Administered Medications Times are shown in EDT. Scheduled Medication Order 01/09/2018 01/10/2018 01/11/2018 aspirin chewable tablet 81 mg 81 mg, Oral, DAILY, First dose on Thu01/08/18 at 0145, Until Discontinued, Routine 0821 (Given - Provider: Skye Paris RN) 0931 (Given - Provider: Skye Paris RN) 0828 (Given - Provider: Memo Márquez RN) DILTiazem (CARDIZEM CD) ER capsule 180 mg 180 mg, Oral, DAILY, First dose on Thu01/11/18 at 0900, Until Discontinued, DO NOT CRUSH OR OPEN, Routine 0829 (Given - Provider: Memo Márquez RN) dilTIAZem (CARDIZEM) tablet 30 mg (CANCELED) 30 mg, Oral, EVERY 6 HOURS SCHEDULED, First dose on Thu01/08/18 at 0800, Until Discontinued, Routine 0607 (Given - Provider: Wiliam Benson RN)1151 (Given - Provider: Skye Paris RN)1726 (Given - Provider: Skye Paris, KRIS)2327 (Given - Provider: Alana Santoyo, KRIS) 0513 (Given - Provider: Alana Santoyo, KRIS) dilTIAZem (CARDIZEM) tablet 30 mg (COMPLETED) 30 mg, Oral, ONCE, 1 dose, On Thu01/10/18 at 0900, Routine 0931 (Given - Provider: Skye Paris RN) DILTiazem (CARDIZEM) tablet 60 mg (COMPLETED) 60 mg, Oral, EVERY 8 HOURS SCHEDULED, 2 doses, First dose (after last modification) on Thu01/10/18 at 1400, Last dose on Thu01/10/18 at 2200, Routine 1456 (Given - Provider: Skye Paris RN)2048 (Given - Provider: Amber Burns, RN)2199 (Not Given - Provider: Amber Burns, RN - Reason: See comment - Comment: given [id number] (see mar) per pt request) docusate sodium (COLACE) capsule 100 mg 100 mg, Oral, 2 TIMES DAILY, First dose on Thu01/08/18 at 0115, Until Discontinued, Routine 08 (Not Given - Provider: Skye Paris RN - Reason: Patient/family refused)2099 (Not Given - Provider: Alana Santoyo RN - Reason: Patient/family refused) 09 (Not Given - Provider: Skye Paris RN - Reason: Contraindicated)2099 (Not Given - Provider: Amber Burns RN - Reason: Patient/family refused) 09 (Not Given - Provider: Memo Márquez RN - Reason: Patient/family refused) famotidine (PEPCID) tablet 20 mg 20 mg, Oral, DAILY, First dose on Thu01/08/18 at 0900, Until Discontinued, Routine 08 (Given - Provider: Skye Paris RN) 09 (Given - Provider: Skye Paris RN) 08 (Given - Provider: Memo Márquez, KRIS) insulin glargine VIAL injection 40 Units 40 Units, Subcutaneous, EVERY 24 HOURS, First dose on Thu01/09/18 at 2100, Until Discontinued, Routine 2021 (Given - Provider: Alana Santoyo, KRIS) 2048 (Given - Provider: Amber Burns, KRIS) insulin lispro (HumaLOG) VIAL injection 2-8 Units (CANCELED)(Linked Group 1) 2-8 Units, Subcutaneous, 3 TIMES DAILY BEFORE [...] unless specifically told to do so., Routine 0800 (Given - Provider: Skye Paris RN - Comment: [phone] (Given - Provider: Skye Paris RN - Comment: [phone] (Given - Provider: Skye Paris RN - Comment: [phone]) insulin lispro (HumaLOG) VIAL injection 3-12 Units(Linked Group 2) 3-12 Units, Subcutaneous, 3 TIMES DAILY BEFORE [...] unless specifically told to do so., Routine 1653 (Given - Provider: Skye Paris RN) 0752 (Given - Provider: Skye Paris RN)1152 (Given - Provider: Skye Paris, KRIS)1709 (Given - Provider: Skye Paris RN) 0836 (Given - Provider: Memo Márquez, KRIS)1218 (Given - Provider: Memo Márquez, RN) insulin lispro (HumaLOG) VIAL injection 8 Units 8 Units, Subcutaneous, 3 TIMES DAILY WITH MEALS, First dose on 01/09/18 at 1700, Until Discontinued, [employer] If a range is ordered, give smaller dose with less carbohydrate intake. Hold if not eating, Routine 1726 (Given - Provider: Skye Paris RN) 0753 (Given - Provider: Skye Paris RN)1152 (Given - Provider: Skye Paris, KRIS)1709 (Given - Provider: Skye Paris RN) 0837 (Given - Provider: Memo Márquez, KRIS)1324 (Given - Provider: Sonal Dooley, KRIS) lisinopril (PRINIVIL;ZESTRIL) tablet 10 mg 10 mg, Oral, DAILY, First dose on Thu01/08/18 at 0900, Until Discontinued, Routine 0822 (Given - Provider: Skye Paris, KRIS) 0931 (Given - Provider: Skye Paris, KRIS) 0828 (Given - Provider: Memo Márquez, KRIS) magnesium oxide (MAG-OX) tablet 400 mg 400 mg, Oral, 2 TIMES DAILY, First dose on Thu01/08/18 at 0245, Until Discontinued, Routine 0821 (Given - Provider: Skye Paris, KRIS)2022 (Given - Provider: Alana Santoyo RN) 0932 (Given - Provider: Skye Paris, KRIS)204 (Given - Provider: Amber Burns RN) 0828 (Given - Provider: Memo Márquez RN) magnesium sulfate 1g in dextrose 5% 100mL (COMPLETED) 1 g, Intravenous, ONCE, 1 dose, On Thu01/10/18 at 0800, Administer over 60 Minutes 0753 (New Bag - Provider: Skye Paris, KRIS)0853 (Stopped - Provider: Skye Paris RN) metoprolol succinate (TOPROL-XL) XL tablet 100 mg 100 mg, Oral, DAILY, First dose on Thu01/11/18 at 0900, Until Discontinued, DO NOT CRUSH OR OPEN, Routine 0838 (Given - Provider: Memo Márquez RN) metoprolol tartrate (LOPRESSOR) tablet 25 mg (CANCELED) 25 mg, Oral, EVERY 6 HOURS SCHEDULED, First dose (after last modification) on Thu01/08/18 at 0745, Until Discontinued, Routine 0607 (Given - Provider: Wiliam Benson RN)1151 (Given - Provider: Skye Paris RN) metoprolol tartrate (LOPRESSOR) tablet 25 mg (COMPLETED) 25 mg, Oral, ONCE, 1 dose, On Thu01/09/18 at 1245, Routine 1447 (Given - Provider: Skye Paris, KRIS) metoprolol tartrate (LOPRESSOR) tablet 50 mg (CANCELED) 50 mg, Oral, EVERY 12 HOURS SCHEDULED (2 times per day), First dose (after last modification) on 01/09/18 at 1415, Until Discontinued, Routine 2029 (Given - Provider: Alana Santoyo RN) metoprolol tartrate (LOPRESSOR) tablet 50 mg (CANCELED) 50 mg, Oral, EVERY 12 HOURS SCHEDULED (2 times per day), First dose (after last modification) on Thu01/10/18 at 0900, Until Discontinued, Routine 930 (Given - Provider: Skye Paris RN)2048 (Given - Provider: Amber Burns RN) rivaroxaban (XARELTO) tablet 20 mg 20 mg, Oral, EVERY EVENING, First dose on Thu01/09/18 at 1500, Until Discontinued, Routine, Restricted anticoagulant, choose the most appropriate response: Approved indication of non-valvular atrial fibrillation 1446 (Given - Provider: Skye Paris RN) 170 (Given - Provider: Skye Paris RN) simvastatin (ZOCOR) tablet 20 mg 20 mg, Oral, NIGHTLY, First dose on Thu01/08/18 at 2100, Until Discontinued 2022 (Given - Provider: Alana Santoyo RN) 2048 (Given - Provider: Amber Burns RN) sodium chloride 0.9 % flush 5 mL 5 mL, Intravenous, EVERY 12 HOURS, First dose on Thu01/08/18 at 0115, Until Discontinued, Routine 114 (Not Given - Provider: Wiliam Benson RN - Reason: Order parameters not met)131 (Not Given - Provider: Skye Paris RN - Reason: Contraindicated) 011 (Not Given - Provider: Alana Santoyo RN - Reason: See comment - Comment: given earlier)131 (Not Given - Provider: Skye Paris RN - Reason: Contraindicated)2049 (Given - Provider: Amber Burns RN) 011 (Given - Provider: Amber Burns RN)131 (Not Given - Provider: Sonal Dooley RN - Reason: Patient/family refused) sodium chloride 0.9 % flush 5 mL 5 mL, Intravenous, 2 TIMES DAILY, First dose on Thu01/08/18 at 0115, Until Discontinued, Routine 0822 (Given - Provider: Skye Paris, RN)2023 (Given - Provider: Alana Santoyo, KRIS) 0900 (Not Given - Provider: Skye Paris RN - Reason: Contraindicated)2050 (Given - Provider: Amber Burns RN) 0900 (Given - Provider: Memo Márquez, KRIS) Continuous Medication Order 01/09/2018 01/10/2018 01/11/2018 heparin 25,000 units in dextrose 5% 500 mL infusion (CANCELED)(Linked Group 3) 0-5,000 Units/hr (0-100 mL/hr), Intravenous, CONTINUOUS, Starting [...] required Heparin UFH Level - Per Protocol, Routine, Indication: Atrial Fibrillation 0136 (New Bag - Provider: Wiliam Benson, RN)1518 (Stopped - Provider: Skye Paris, RN) PRN Medication Order 01/09/2018 01/10/2018 01/11/2018 acetaminophen (TYLENOL) tablet 650 mg 650 mg, Oral, EVERY 4 HOURS PRN, Starting on 01/08/18 at 0055, Until 01/11/18 at 1442, Pain, Headaches, Maximum dose of acetaminophen is 4000 mg from all sources in 24 hours., Routine 09 (Given - Provider: Skye Paris, RN) dextrose 50% IV syringe 25-50 mL(Linked Group 4) 25-50 mL (12.5-25 g), Intravenous, EVERY 1 HOUR PRN, Starting on 01/09/18 at 1354, Until 01/11/18 at 1442, [...] (human recombinant) injection SolR 1 mg(Linked Group 4) 1 mg, Intramuscular, EVERY 1 HOUR PRN, Starting on 01/09/18 at 1354, Until 01/11/18 at 1442, [...] Subcutaneous, ONCE PRN, 1 dose, Starting on Thu01/08/18 at 0053, Until Thu01/11/18 at 1442, for discomfort with PIV insertion, Routine nitroGLYcerin (NITROSTAT) SL tablet 0.4 mg 0.4 mg, Sublingual, EVERY 5 MIN PRN, Starting on Thu01/08/18 at 0053, Until Thu01/11/18 at 1442, Chest pain, May repeat every 5 minutes for a total of three doses. Notify provider if chest pain not relieved with nitroglycerin. Do not administer nitroglycerin if the patient has received or taken phosphodiesterase (PDE-5) inhibitors such as sildenafil, tadalafil or vardenafil within the last 24 to 72 hours., Routine sodium chloride 0.9 % flush 5-20 mL 5-20 mL, Intravenous, EVERY 1 MIN PRN, Starting on Thu01/08/18 at 0054, Until Thu01/11/18 at 1442, flush, Flush pertains to all indwelling lines. Flush per protocol found in the job aid using the link provided on this medication record., Routine sodium chloride 0.9 % flush 5-20 mL 5-20 mL, Intravenous, EVERY 1 MIN PRN, Starting on Thu01/08/18 at 0053, Until Thu01/11/18 at 1442, flush, Flush pertains to all indwelling lines. Flush per protocol found in the job aid using the link provided on this medication record., Routine Linked Groups Order Group 1: POCT Fingerstick Glucose (CANCELED) Routine, 4 TIMES DAILY BEFORE MEALS & AT BEDTIME, First occurrence on Thu01/08/18 at 2200, Until Specified, Consider choosing FOUR TIMES A DAY BEFORE MEALS AND AT BEDTIME as frequency for: Patients who have a good hypoglycemia awareness: -Patients who are eating meals during the day and sleeping at night -Patient who are otherwise stable And insulin lispro (HumaLOG) VIAL injection 2-8 Units (CANCELED)Jump to med 2-8 Units, Subcutaneous, 3 TIMES DAILY BEFORE [...] unless specifically told to do so., Routine Group 2: POCT Fingerstick Glucose (CANCELED) Routine, 4 TIMES DAILY BEFORE MEALS & AT BEDTIME, First occurrence on Thu01/09/18 at 1700, Until Specified, Consider choosing FOUR [...] unless specifically told to do so., Routine Group 3: heparin (porcine) injection 0-8,000 Units (CANCELED) 0-8,000 Units, Intravenous, BOLUS PER HEPARIN PROTOCOL, Starting on Thu01/08/18 at 1244, Until Thu01/10/18 at 1501, Per Protocol, START ADJUSTMENT SCHEDULE 6 HOURS AFTER STARTING INFUSION Heparin UFH Level between 0.1 - 0.29 IU/mL: Bolus 3,050 units Heparin UFH Level less than 0.1 IU/mL: Bolus 6,150 units, Routine And heparin 25,000 units in dextrose 5% 500 mL infusion (CANCELED)Jump to med 0-5,000 Units/hr (0-100 mL/hr), Intravenous, CONTINUOUS, Starting on Thu01/08/18 at 1315, Until 01/10/18 at 1501, [...] required Heparin UFH Level - Per Protocol, Routine, Indication: Atrial Fibrillation Group 4: dextrose 50% IV syringe 25-50 mLJump to med 25-50 mL (12.5-25 g), Intravenous, EVERY 1 HOUR PRN, Starting on 01/09/18 at 1354, Until 01/11/18 at 1442, [...] the duration of the active insulin., Routine Or glucagon (human recombinant) injection SolR 1 mgJump to med 1 mg, Intramuscular, EVERY 1 HOUR PRN, Starting on 01/09/18 at 1354, Until 01/11/18 at 1442, [...] the duration of the active insulin., Routine documented in this encounter Care Teams Flat Finisher Relationship Specialty Start Date End Date Ruben Gillette MD [facility] [place] [address] PCP - General Internal Medicine 01/11/1810/20 documented as of this encounter
--- OUTSIDE RECORDS SUMMARY | 2024-02-08 15:32 | XMS_ITS | Encounter Summary ---
Author Organization [facility] Address [facility] [place] [address] Care Team Providers Care Valve Repairer Name Role Phone Quin Gordon APRN Primary Care Provider + Reason for Referral * Physical Therapy (Routine) - Closed by system - unspecified Specialty Diagnoses / Procedures Referred By Contac t Referred To Contact Physical Therapy Diagnoses Gait instability Osteoarthrosis, unspecified whether generalized or localized, lower leg Proximal leg weakness Orlando Encinas MD [facility] [address] Referral ID Status Reason Start Date Expiration Date Visits Requested Visits Authorized [id number] Closed by system - unspecified Evaluate and Treat 10/06/2011 04/03/2012 1 1 Reason for Visit * Reason Comments Advice Only Encounter Details Date Type Department Care Team ([facility] st Contact Info) Description 10/06/2011 1:45 PM EDT Office [place] [address] Orlando Encinas MD [facility] [place] [address] Gait instability; Seronegative arthritis; Osteoarth NOS-l/leg; Osteoarth NOS-ankle; Osteoarthrosis, unspecified whether generalized or localized, hand; Proximal leg weakness Discharge Disposition: Home Social History Tobacco Use [...] EDT documented in this encounter Patient Instructions * Patient Instructions* Orlando Encinas MD - 10/06/2011 3:17 PM EDT Get labs and x-rays today. Call next week for results. Go to PT for leg strengthening. Follow up in 2 months. Call if problems. documented in this encounter Progress Notes * Orlando Encinas MD - 10/06/2011 3:36 PM EDT Rheumatology Clinic: Dr. Encinas 10/06/2011 [id number] Dhaval Yee is a 61 y.o. female patient whom we see in consultation for QUIN GORDON APRN in evaluation of a couple of issues. First of all, this is a woman who we've seen intermittentlyin the clinic since 1997 with a diagnosis of seronegative rheumatoid arthritis, first treated with Plaquenil and then methotrexate. When I last saw her on 05/05/2007, she was doing well in terms of her inflammatory arthritis, but was having more degenerative symptoms. Interestingly, even at that time she brought up problems with both legs, right greater than left. She complained of a sense of thelegs being rubbery, uncomfortable, and jumpy. And most of what she sees us about today is perhaps a continuation of that issue. From the inflammatory arthritis perspective, she reports today that shestopped the plaquenil and methotrexate about 2-3 years ago, [...] and one the week before. It's very difficultto pin her down on exactly what happens with these falls, but they usually occur when she's out in her garage working with her rabbits. 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 Initially we thought she was telling us this occurred when she was squatting orkneeling and going to stand up. But when we actually had her recreate what happens, it's clear thatit's when she is standing at the cages [...] seem to have very significant neuropathy. She complainsof some numbness in the third, fourth, and [...] left greater than right. She does experience lockingphenomena. When she's had one of these falls [...] that she is weak in the lower extremities.She has been on simvastatin for about a year, by her recollection, but she doesn't feel the symptoms are really coming from the muscles. Past Medical History: Diabetes for 23+ years. Previously in good control on Lantus, but now on 3 oral agents. Insulin hasagain been discussed. Hypertension. Intermittent atrial fibrillation, by [...] using drugs,other than the marijuana for her arthritis.She had taken care of her father for a long time, but had to put him in a home when it became too di fficult for her to lift him. He 3 years ago on . Dean's Day. She takes care of her own rabbits in her barn, which is actually her garage. 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 She walks regularly. She gets around 7 hours of sleep a night and feels she does get good rest. Updated Family History: She has 4 children, including a now 24-year-old daughter, a 29-year-old daughter, 41-year-old son, and a 43-year-old daughter. They are healthy. I mentioned that her father since the last visit.Her mother . She had vascular disease including stroke, hypertension, and heart disease.Her father also had a stroke. Her mother and grandmother had diabetes. Her grandmother had cancer. Her sister has alcoholism. Review of Systems As on the last visit, remarkably negative except as in HPI, with nocturnal leg cramps, falling episodes, and pain in her hands, shoulders, knees, and left foot. Otherwise, the rheumatology, cardiology, pulmonary, GI, , neurology, dermatology, and hematology review [...] in her hands, particularly affecting the DIPs and the thumb joints, especially the basilar thumb joint. The real puzzle is her PIP joints where she does have soft tissue swelling and tenderness at the PIPs #2 and 3 bilaterally, as well as #4 on theleft and possibly #4 on the right. Her MCPs are spared. Her wrists move well. She intermittently has pain on motion on the right, although that's not reproducible. Her elbows are fine. She's lost significant abduction in both shoulders, left greater than right. She has diminished range of motion ofthe neck in all modalities. It is not painful. [...] line. Her ankles are fine. Midfoot on th e right is normal. She has some pain [...] side, particularly at the first MTP. She canbend over at the waist and touch her toes. Neuro: 5/5 proximal muscle strength in the upper and lower extremities. DTRs trace and symmetrical at the knees and the ankle jerks. Toes downgoing. Negative Romberg. Assessment & Plan: First of all, in terms of her arthritis, I am not getting a good flavor for a lot of activity here. The only really questionable [...] the knees, more symptomatic on the left, butby exam little worse on the right, and the feet. We'll also check some lab work today checking her inflammatory markers, rheumatoid factor, CCP, et cetera. The trouble with falling is a little bit more tricky. We spent a great deal of time today trying totease this out and yet it's very confusing. This only seems to be happening when she is doing certain activities, particularly taking care of her rabbits. Initially she indicated it was when she was bending down or squatting, but that's really is not the case. We asked her to demonstrate what she does in the garage when taking care of the rabbits, there is really very little bending over or squatting. Most of it is done at around chest [...] doubt she has active inflammatory arthritis. Several otherthings are going on which may well be [...] Sedimentation rate, High Sensitivity CRP, Vitamin B12, TSH,CK, Rheumatoid factor, quant, Cyclic Citrullinated Peptide, Comprehensive [...] STONE Oct 07, 2011 10:06 AM EDT [phone] BILATERAL FEET, THREE VIEWS EACH SIDE, 10/06/2011 [...] The clinical significance is unclear to me. JOSE ARMANDO VELASCO Oct 06, 2011 5:18 PM EDT [phone] Reason for exam and clinical history: H/O [...] Type Priority Associated Diagnoses Orde r Schedule REFERRAL TO PHYSICAL THERAPY Outpatient Referral Routine Gait instability Osteoarth NOS-l/leg Proximal leg weakness Ordered: 10/06/2011 documented as of this encounter Procedures Procedure Name Priority Date/Time Associated Diagnosis Comments DIFFERENTIAL, AUTOMATED Routine 10/06/2011 3:38 PM EDT SEDIMENTATION RATE Routine 10/06/2011 3: 38 PM EDT Seronegative arthritis CBC (WITH DIFF) Routine 10/06/2011 3:38 PM EDT Seronegative arthritis CRP, CARDIAC RISK (HS CRP) Routine 10/06/2011 3:38 PM EDT Seronegative arthritis TSH Routine 10/06/2011 3:38 PM EDT Gait instability Seronegative arthritis CK Routine 10/06/2011 3:38 PM EDT Gait instability Seronegative arthritis COMPREHENSIVE METABOLIC PANEL Routine 10/06/2011 3:38 PM EDT Gait instability Seronegative arthritis documented in this encounter Results * XR [...] me. Procedure Note Yunior Stone MD - 10/07/2011 BILATERAL FEET, THREE [...] me. Orlando Encinas MD IMG DX ORDERABLES * XR hands bilateral (10/06/2011 4:06 PM [...] than inflammatory osteoarthropathy. Procedure Note Jose Armando Velasco MD - 10/06/2011 Examination BILATERAL HANDS/BILAT Clinical History Reason for exam and clinical history: H/O seronegative RA. ?erosions.; Comparison April 2007. Findings The bone mineralization is normal. The soft tissues surrounding the [id number] PIP joint is swollen. Joints- 1. Interphalangeal [...] osteoarthropathy. Orlando Encinas MD IMG DX ORDERABLES * DIFFERENTIAL, AUTOMATED (10/06/2011 3:38 PM EDT) Neutrophil % 49.1 34.0 - 71.0 % CERNER MILLENNIUM Neutrophil Absolute 3.85 1.50 - 6.30 x10(3)/mcL CERNER MILLENNIUM Lymph % 37.3 19.0 - 53.0 % CERNER MILLENNIUM Lymphocytes Abs 2.9 1.0 - 3.6 x10(3)/mcL CERNER MILLENNIUM Monocyte % 10.4 4.0 - 13.0 % CERNER MILLENNIUM Monocyte Abs 0.8 0.2 - 1.0 x10(3)/mcL CERNER MILLENNIUM Eos % 2.6 0.0 - 7.0 % CERNER MILLENNIUM Eosinophils Abs 0.2 0.0 - 0.5 x10(3)/mcL CERNER MILLENNIUM Basophil % 0.3 0.0 - 2.0 % CERNER MILLENNIUM Baso Absolute 0.0 0.0 - 0.2 x10(3)/mcL CERNER MILLENNIUM Immature Gran % 0.30 0.00 - 0.66 % CERNER MILLENNIUM Comment: Immature granulocytes(IG's)percentage and absolute count will include metamyelocytes, myelocytes, and promyelocytes. Blood smears from CBCs yielding IG's will be scanned manually for concordance. If this scan disagrees with the automated IG or if promyelocytes are noted, a manual differential will be performed. Immature Gran Absolute 0.02 0.00 - 0.05 x10(3)/mcL CERNER MILLENNIUM Blood specimen (specimen) 10/06/2011 3:38 PM EDT 10/06/2011 3:47 PM EDT Orlando Encinas MD HEMATOLOGY ORDERA BLES CERNER MILLENNIUM * (ABNORMAL) Comprehensive metabolic panel (non-fasting) (10/06/2011 3:38 PM EDT) Glucose 211(H) 60 - 199 mg/dL CERNER MILLENNIUM Comment:Diabetes: >=200 mg/d L plus symptoms Blood Urea Nitrogen 19(H) 8 - 18 mg/dL CERNER MILLENNIUM Creatinine 0.85 0.70 - 1.20 mg/dL CERNER MILLENNIUM Sodium 138 135 - 145 mmol/L CERNER MILLENNIUM Potassium 4.7 3.5 - 5.0 mmol/L CERNER MILLENNIUM Comment: Please note: ??Patients with WBC >100,000 may have falsely elevated Potassium levels. ??For accurate Potassium quantification in these patients send serum separator tube (gold top) for subsequent determinations. ??Contact the Clinical Chemistry Laboratory if there are any questions. Chloride 101 98 - 107 mmol/L CERNER MILLENNIUM Carbon Dioxide 24 22 - 31 mmol/L CERNER MILLENNIUM Anion Gap 13 5 - 15 mmol/L CERNER MILLENNIUM Calcium 9.4 8.5 - 10.5 mg/dL CERNER MILLENNIUM Protein, Total 7.5 6.4 - 8.3 gm/dL CERNER MILLENNIUM Albumin 4.3 3.2 - 5.2 gm/dL CERNER MILLENNIUM Aspartate Aminotransferase 19 0 - 30 unit/L CERNER MILLENNIUM Alanine Aminotransferase 18 0 - 30 unit/L CERNER MILLENNIUM Alkaline Phosphatase 43 40 - 104 unit/L CERNER MILLENNIUM Bilirubin, Total 0.1(L) 0.2 - 1.3 mg/dL CERNER MILLENNIUM Bilirubin, Direct <0.1 0.0 - 0.3 mg/dL CERNER MILLENNIUM Est Glomerular Filtration Rate >60 >=60 CERNER MILLENNIUM Comment: The National Kidney Disease Education Program (NKDEP) has recommended all laboratories report estimated GFR (eGFR) along with plasma creatinine measurements to assist you with recognition of early kidney disease. Caveats: ??Plasma creatinine should be at steady-state (unchanged within the past week). For patients multiply eGFR by 1.2. The MDRD equation was developed using patients between the ages of 18 and 70 years. ?? The MDRD equation has not been validated for patients < 18 years of age and should not be used to assess renal function in the pediatric population. ??The MDRD eGFR equation will also overestimate the true GFR of patients above the age of 70. ??This overestimation is variable but increases with age. At present, NKDEP does NOT recommend using the MDRD equation for drug dosing purposes and pharmacists should continue to use their current dosing methods. In addition, numerical eGFR values greater than 60 ml/min/1.73 square meters should be treated as > 60, and not an exact number due to greater inaccuracies at these higher values. Per NKDEP, they classify normal renal function as any GFR >60ml/min/1.73 square meters; chronic kidney disease when GFR <60, and renal failure when GFR <15. ??This calculation may not be valid for patients with atypical muscle mass (very lean or obese), acute renal failure, and in patients with diabetic kidney disease. References: http://nkdep.nih.gov/resources/NKDEP_Suggestn4Labs_0606_508.pdf http://www.kidney.org/professionals/kls/pdf/faq_gfr.pdf Ольга K, Philip NA, Radha AK, Daniel TS, Heather AD, Rissa SHIRA. Relative performance of the MDRD and CKD-EPI equations for estimating glomerular filtration rate among patients with varied clinical presentations. Clin J Am Soc Nephrol;6:1963-72. Blood specimen (specimen) 10/06/2011 3:38 PM EDT 10/06/2011 3:47 PM EDT Narrative Resulting Agency Comment Spec In Lab Orlando Encinas MD CHEMISTRY ORDERAB LES Performing Organization Address [facility] Co de Phone Number BRADLEY LIZARRAGAIUM * CK (10/06/2011 3:38 PM EDT) Creatine Kinase 132 0 - 160 unit/L BRADLEY FONSECAENNIUM Blood specimen (specimen) 10/06/2011 3:38 PM EDT 10/06/2011 3:47 PM EDT Narrative Resulting Agency Comment Spec In Lab Orlando Encinas MD CHEMISTRY ORDERAB LES Performing Organization Address [facility] Co de Phone Number BRADLEY LIZARRAGAIUM * TSH (10/06/2011 3:38 PM EDT) Thyroid Stimulating Hormone 0.98 0.27 - 4.20 mcIU/mL [facility] Blood specimen (specimen) 10/06/2011 3:38 PM EDT 10/06/2011 3:47 PM EDT Narrative Resulting Agency Comment Spec In Lab Orlando Encinas MD CHEMISTRY ORDERAB LES Performing Organization Address [facility] Co de Phone Number BRADLEY LIZARRAGAIUM * High Sensitivity CRP (10/06/2011 3:38 PM EDT) C-Reactive Protein High Sensitivity 0.3 mg/L [facility] Comment: Interpretations: 1) For cardiac risk assessment, two values (fasting or nonfasting sample acceptable) taken at least 2 weeks apart, should be averaged to provide a more reliable estimate of marker level. ??This laboratory uses the recommendations from the AHA/CDC Scientific Statement for interpretations of future risks of cardiovascular events: ? <1.0 mg/L: low risk 1.0 - 3.0 mg/L: moderate risk >3.0 mg/L: high risk groups for future cardiovascular events 2) The general reference range of apparently healthy individuals using this test is <5.0 mg/L (derived from the test package insert) A few words of caution: For cardiac assessment, when a value >10 mg/L is encountered, there should be a search for an acute inflammatory condition or infection (in patients with acute inflammation, the concentration can increase to >500 mg/L). ??The >10 mg/L should be discarded if such a situation exists, since the risk for coronary heart disease cannot be provided, and a repeat specimen, taken at least two weeks after resolution of the acute inflammatory condition, may allow for appraisal of coronary risk information. Please note that significantly decreased CRP values may be obtained from samples taken from patients who have been treated with carboxypenicillins. References: 1. Nilda HOWE et. al. ??AHA/CDC Scientific Statement: Markers of Inflammation and Cardiovascular Disease. ??Circulation 2003; 107:499-511 2. Ridker PM. ??Clinical applications of C-reactive protein for cardiovascular disease detection and prevention. ??Circulation 2003; 107:363-369 Blood specimen (specimen) 10/06/2011 3:38 PM EDT 10/06/2011 3:47 PM EDT Narrative Resulting Agency Comment Spec In Lab Orlando Encinas MD CHEMISTRY ORDERAB LES BRADLEY LIZARRAGAIUM * Sedimentation rate (10/06/2011 3:38 PM EDT) Sedimentation Rate Automated 15 0 - 20 mm/hr CERWYATT MILLENNIUM Blood specimen (specimen) 10/06/2011 3:38 PM EDT 10/06/2011 3:47 PM EDT Narrative Resulting Agency Comment Spec In Lab Orlando Encinas MD HEMATOLOGY ORDERA BLES Performing Organization Address [facility]/State/ZIP Co de Phone Number CERWYATT LIZARRAGAIUM * CBC (with Diff) (10/06/2011 3:38 PM EDT) White Blood Cell 7.8 4.0 - 10.0 x10(3)/mcL CERNER MILLENNIUM Red Blood Cell 4.46 3.93 - 5.22 x10(6)/mcL CERNER MILLENNIUM Hemoglobin 13.1 11.2 - 15.7 gm/dL CERNER MILLENNIUM Hematocrit 39.0 34.0 - 45.0 % CERNER MILLENNIUM Mean Cell Volume 87.4 79.0 - 94.0 fL CERNER MILLENNIUM Mean Cell Hemoglobin 29.4 26.6 - 32.2 pg CERNER MILLENNIUM Mean Cell Hemoglobin Concentration 33.6 32.0 - 36.5 gm/dL CERNER MILLENNIUM Platelet 324 145 - 370 x10(3)/mcL CERNER MILLENNIUM RDW Standard Deviation 42.2 35.0 - 46.0 fL CERNER MILLENNIUM RDW coefficient of variation 13.2 10.9 - 14.4 % CERNER MILLENNIUM Mean Platelet Volume 10.7 9.0 - 12.0 fL CERNER MILLENNIUM Blood specimen (specimen) 10/06/2011 3:38 PM EDT 10/06/2011 3:47 PM EDT Narrative Resulting Agency Comment Spec In Lab Orlando Encinas MD HEMATOLOGY ORDERA BLES BRADLEY HESTER documented in this encounter Visit Diagnoses Diagnosis Gait instability Abnormality of gait Seronegative arthritis Other specified arthropathy, site unspecified Osteoarthrosis, unspecified whether generalized or localized, lower leg Osteoarthrosis, unspecified whether generalized or localized, ankle and foot Osteoarthrosis, unspecified whether generalized or localized, hand Proximal leg weakness Other musculoskeletal symptoms referable to limbs Seronegative arthritis Other specified arthropathy, site unspecified Osteoarthrosis, unspecified whether generalized or localized, hand Seronegative arthritis Other specified arthropathy, site unspecified Osteoarthrosis, unspecified whether generalized or localized, ankle and foot documented in this encounter Care Teams Valve Repairer Relationship Specialty Start Date End Date Quin Gordon APRN PCP - General 06/24/10 12/19/17 documented as of this encounter
--- OUTSIDE RECORDS SUMMARY | 2024-02-08 15:32 | XMS_ITS | Encounter Summary ---
Author Organization [facility] [place] [address] Care Team Providers Care Cut Off Worker Name Role Phone Hoa Jacques APRN Primary Care Provider + Reason for Visit * Reason Onset Date Comments Medication Refill 05/01/2014 Encounter Details Date Type Department Care Team (Late st Contact Info) Description 05/01/2014 Refill Cardiology at [address] [phone] Cathie Venegas MD [facility] [place] [address] Medication Refill Social History Tobacco Use Types [...] encounter Miscellaneous Notes * Telephone Encounter - Cathie Venegas MD - [...] fibrillation documented in this encounter Care Teams Cut Off Worker Relationship Specialty Start Date End Date Hoa Jacques APRN PCP - General 06/24/10 12/19/17 documented as of this encounter
--- OUTSIDE RECORDS SUMMARY | 2024-02-08 15:32 | XMS_ITS | Encounter Summary ---
Author Organization [facility] [place] [address] Care Team Providers Care Associate Professor Of Library Science Name Role Phone Hoa Jacques APRN Primary Care Provider + Reason for Visit * Reason Comments Medication Refill Encounter Details Date Type Department Care Team ([facility] Contact Info) Description 04/09/2015 Refill [place] [address] González Craven MD [facility] [place] [address] Chronic atrial fibrillation Social History Tobacco Use Types Packs/Day Years [...] fibrillation documented in this encounter Care Teams Associate Professor Of Library Science Relationship Specialty Start Date End Date Hoa Jacques APRN PCP - General 06/24/10 12/19/17 documented as of this encounter
--- OUTSIDE RECORDS SUMMARY | 2024-02-08 15:33 | XMS_ITS | Encounter Summary ---
[place] [address] Care Team Providers Care Departure Clerk Name Role Phone Hoa Jacques APRN Primary Care Provider + Encounter Details Date Type Department Care Team (Late st Contact Info) Description 07/04/2010 1:45 PM EST Office Visit Dermatology [address] [place] [address] David Ayoub MD [address], [place] [address] Social History Tobacco Use Types Packs/Day Years Used Date Smoking Tobacco: Never Assessed Sex and Gender Information Value Date Recorded Sex Assigned at Not on file Gender Identity Not on file Sexual Orientation Not on file documented as of this encounter Plan of Treatment Not on file documented as of this encounter Visit Diagnoses Not on filedocumented in this encounter Care Teams Departure Clerk Relationship Specialty Start Date End Date Hoa Jacques APRN PCP - General 06/24/10 12/19/17 documented as of this encounter
--- OUTSIDE RECORDS SUMMARY | 2024-02-08 15:33 | XMS_ITS | Encounter Summary ---
Author Organization [facility] Address [address] [place] [address] Care Team Providers Care Earth Science Technician Name Role Phone Unavailable Primary Care Provider Unavailabl e Encounter Details Date Type Department Care Team (Late st Contact Info) Description 05/14/2010 Results Only [facility] ([facility] [address] [place] [address] Quin Jacques, [place]ITE [address] [place] [address] Social History Tobacco Use Types Packs/Day Years Used Date Smoking Tobacco: Never Assessed Sex and Gender Information Value Date Recorded Sex Assigned at Not on file Gender Identity Not on file Sexual Orientation Not on file documented as of this encounter Plan of Treatment Not on file documented as of this encounter Procedures Procedure Name Priority Date/Time Associated Diagnosis Comments CYTOPATHOLOGY Routine 05/14/2010 0:00 EST documented in this encounter Results * CYTOPATHOLOGY (05/14/2010 0:00 EST) Pathology Report: CYTOPATHOLOGY REPORT ? Reports generated via electronic interface contain original data; ? however they are lacking the format of the original report. ? Caution should be taken when reading/interpreti ng unformatted reports. ? Name: ? DHAVAL YEE ? Accession #: ? [id number] ? : ? 1950 (Age: 60) ??F ?Collect Date: ? 05/14/2010 ? Location: ? [facility] ? Receive Date: ? 05/20/2010 ? Provider: QUIN JACQUES NP ? Copy to: ? Final Report ? SPECIMEN ADEQUACY ? Satisfactory for Evaluation ? - assessment of transformation zone component not applicable ( e.g. atrophy, ? vaginal sample, hysterectomy) ? GENERAL CATEGORIZATION ? Negative for Intraepithelial Lesion or Malignancy ? Last Menstural Period: 2001 ? Hormonal/Contracep tive status: Tubal ligation ? Specimen/Source: ??Pap Test, Cervix/Endocervix, ThinPrep Imaging System with ? manual evaluation ? Document reviewed and electronically signed by: ? Andi Stumler, CT(ASCP) ? Report ??Date: 05/21/2010 11:42 ? HPV with Pap Test ? Date Ordered: ? 05/21/2010 ? Status: ?? Signed Out ?Date Complete: ? 05/28/2010 ? By: ??System Interface ? Date Reported: ? 05/28/2010 ? Interpretation ? RESULT: Quantity not sufficient. ? Comments ? Document reviewed and electronically signed by: ? System Interface ? Report date: 05/28/2010 ? By the signature above, the attending physician certifies that he/she has ? personally conducted a gross and/or microscopic examination of the described ? specimens and rendered or confirmed the above diagnosis. ? End of Report ? [facility] 05/14/2010 05/20/2010 Quin Jacques CUTTING MACHINE OFFBEARER PATHOLOGY ORDERABLES [facility] [address] [place] [address] documented in this encounter Visit Diagnoses Not on filedocumented in this encounter
--- OUTSIDE RECORDS SUMMARY | 2024-02-08 15:33 | XMS_ITS | Encounter Summary ---
Author Organization [facility] Address [address] [place] [address] Care Team Providers Care Surgical Pathologist Name Role Phone Unavailable Primary Care Provider Unavailabl e Encounter Details Date Type Department Care Team (Late st Contact Info) Description 12/18/1999 Results Only [facility] [place] conversion [address] [place] [address] Aidee Schaefer MD [address] [place] [address] Social History Tobacco Use Types Packs/Day Years Used Date Smoking Tobacco: Never Assessed Sex and Gender Information Value Date Recorded Sex Assigned at Not on file Gender Identity Not on file Sexual Orientation Not on file documented as of this encounter Plan of Treatment Not on file documented as of this encounter Procedures Procedure Name Priority Date/Time Associated Diagnosis Comments CYTOPATHOLOGY Routine 12/18/1999 0:00 EDT documented in this encounter Results * CYTOPATHOLOGY (12/18/1999 0:00 EDT) Pathology Report: CYTOPATHOLOGY REPORT Reports generated via electronic interface contain original data; however they are lacking the format of the original report. Caution should be taken when reading/interpreti ng unformatted reports. Name: ? DHAVAL YEE ? Accession #: ? [id number] : ? 1950 (Age: 49) ??F ?Collect Date: ? 12/18/1999 Location: ? [facility] ? Receive Date: ? 12/20/1999 Provider: ?AIDEE SCHAEFER SAP SD ANALYST Copy to: ? Specimen/Source: ?Conventional Pap Test, Cervix/Endocervix Last Menstrual Period: ? 11/02/99 ? SPECIMEN ADEQUACY ? Satisfactory for evaluation. GENERAL CATEGORIZATION ? Benign Cellular Changes DESCRIPTIVE DIAGNOSIS ? Reactive cellular changes associated with inflammation present (includes repair). ? Document reviewed and electronically signed by: ? ROHIT METZGER MD ? Report Date: ??12/27/1999 15:27 End of Report JERALD FLOREZ 12/18/1999 12/20/1999 Aidee Schaefer MD PATHOLOGY ORDERABLES [facility] [address] [place] [address] documented in this encounter Visit Diagnoses Not on filedocumented in this encounter
--- OUTSIDE RECORDS SUMMARY | 2024-02-08 15:33 | XMS_ITS | Encounter Summary ---
Author Organization [facility] Address [address] [place] [address] Care Team Providers Care Organ Tuner Name Role Phone Unavailable Primary Care Provider Unavailabl e Encounter Details Date Type Department Care Team (Late st Contact Info) Description 11/23/2000 Results Only [facility] [place] conversion [address] [place] [address] Quin Jacques, MEDICAL OFFICE CLERK [address] [place] [address] Social History Tobacco Use Types [...] Priority Date/Time Associated Diagnosis Comments CYTOPATHOLOGY Routine 11/23/2000 0:00 EDT documented in this encounter Results * CYTOPATHOLOGY (11/23/2000 0:00 EDT) Pathology Report: CYTOPATHOLOGY REPORT Reports generated via electronic interface contain original data; however they are lacking the format of the original report. Caution should be taken when reading/interpreti ng unformatted reports. Name: ? DHAVAL YEE ? Accession #: ? [id number] : ? 1950 (Age: 50) ??F ?Collect Date: ? 11/23/2000 Location: ? [facility] ? Receive Date: ? 11/25/2000 Provider: ?QUIN JACQUES MEDICAL OFFICE CLERK Copy to: ? Specimen/Source: ?Conventional Pap Test, Cervix/Endocervix Last Menstrual Period: ? 09/20 Menstrual/Pregnanc y Status: ? Menorrhagia: Hormonal/Contracep tive Status: ? Provera Treatment History: ? Miscellaneous treatment: Endometrial biopsy ? SPECIMEN ADEQUACY ? Satisfactory for evaluation. GENERAL CATEGORIZATION ? Benign Cellular Changes DESCRIPTIVE DIAGNOSIS ? Atrophy with inflammation (Atrophic Vaginitis). ? Document reviewed and electronically signed by: ? [facility] ? Report Date: ??11/27/2000 18:28 End of Report JERALD FLOREZ 11/23/2000 11/25/2000 Quin Jacques NP PATHOLOGY ORDERABLES Performing Organization Address City/State/[facility] Co de Phone Number JERALD FLOREZ [address] [place] [address] documented in this encounter Visit Diagnoses Not on filedocumented in this encounter
--- OUTSIDE RECORDS SUMMARY | 2024-02-08 15:33 | XMS_ITS | Encounter Summary ---
Author Organization [facility] Address [address] [place] [address] Care Team Providers Care Regulatory Affairs Analyst Name Role Phone Unknown, Provider Primary Care Provider [phone] Encounter Details Date Type Department Care Team (Late st Contact Info) Description 01/08/2018 Results Only Imaging [facility] [phone] Unknown, Provider, Social History Tobacco Use Types Packs/Day Years Used Date Smoking Tobacco: Never Assessed Sex and Gender Information Value Date Recorded Sex Assigned at Not on file Gender Identity Not on file Sexual Orientation Not on file documented as of this encounter Plan of Treatment Pending Results Name Type Priority Associated Diagnoses Date /Time OUTSIDE IMAGES - OTHER CHEST Imaging 01/08/2018 8:55 EDT OUTSIDE IMAGES - CT NEURO Imaging 01/08/2018 8:55 EDT documented as of this encounter Visit Diagnoses Not on filedocumented in this encounter Care Teams Regulatory Affairs Analyst Relationship Specialty Start Date End Date Unknown, Provider, PCP - General 05/21/10 documented as of this encounter
--- OUTSIDE RECORDS SUMMARY | 2024-02-08 15:33 | XMS_ITS | Encounter Summary ---
Author Organization [facility] Address [address] [place] [address] Care Team Providers Care Weaver Hand Loom Name Role Phone Unavailable Primary Care Provider Unavailabl e Encounter Details Date Type Department Care Team (Late st Contact Info) Description 10/20/2005 Results Only [facility] - [place] conversion [address] [place] [address] Quin Jacques, PHARMACY INTAKE COORDINATOR [address] [place] [address] Social History Tobacco Use Types [...] Priority Date/Time Associated Diagnosis Comments CYTOPATHOLOGY Routine 10/20/2005 0:00 EDT documented in this encounter Results * CYTOPATHOLOGY (10/20/2005 0:00 EDT) Pathology Report: CYTOPATHOLOGY REPORT Reports generated via electronic interface contain original data; however they are lacking the format of the original report. Caution should be taken when reading/interpreti ng unformatted reports. Name: ? DHAVAL YEE ? Accession #: ? [id number] : ? 1950 (Age: 55) ??F ?Collect Date: ? 10/20/2005 Location: ? [facility] ? Receive Date: ? 10/22/2005 Provider: ?QUIN JACQUES PHARMACY INTAKE COORDINATOR Copy to: ? Specimen/Source: ?ThinPrep Pap Test, Cervix/Endocervix, processed on [employer] ThinPrep Imaging System, with manual evaluation Last Menstrual Period: ? 2000 Other: ? HPVA - HPV testing requested if ASC-US on the current ThinPrep Pap test. ? SPECIMEN ADEQUACY ? Satisfactory for Evaluation - transformation zone component present GENERAL CATEGORIZATION ? Negative for Intraepithelial Lesion or Malignancy ? Document reviewed and electronically signed by: ? YOLANDA Negron(ASCP) ? Report Date: ??10/23/2005 12:42 End of Report JERALD FLOREZ 10/20/2005 10/22/2005 Quin Jacques NP PATHOLOGY ORDERABLES [facility] [address] [place] [address] documented in this encounter Visit Diagnoses Not on filedocumented in this encounter
--- OUTSIDE RECORDS SUMMARY | 2024-02-08 15:33 | XMS_ITS | Clinical Summary ---
Author Organization [facility] Address [address] [place] [address] Care Team Providers Care Cigarette Packer Name Role Phone Unknown, Provider Primary Care Provider Social History Tobacco Use Types Packs/Day Years Used Date Smoking Tobacco: Never Assessed Sex and Gender Information Value Date Recorded Sex Assigned at Not on file Gender Identity Not on file Sexual Orientation Not on file Plan of Treatment Health Maintenance Due Date Last Done Comments Hepatitis C Screen 1950 RSV Immunization ( o r 60+ Years) (1 - 1-dose 60+ series) 2008 Fall Risk Screening 2013 COVID-19 Vaccine ( season) 2023 Care Teams Cigarette Packer Relationship Specialty Start Date End Date Unknown, Provider, PCP - General 05/21/10
--- OUTSIDE RECORDS SUMMARY | 2024-02-08 15:33 | XMS_ITS | Encounter Summary ---
[place] [address] Care Team Providers Care Pleater Hand Name Role Phone Lana Ramos MD Primary Care Provider [phone] Encounter Details Date Type Department Care Team (Late st Contact Info) Description 06/20/2010 3:45 PM EST Office Visit Dermatology [address] [place], [place] [address] David Ayoub MD [address], [place] [address] Social History Tobacco Use Types Packs/Day Years Used Date Smoking Tobacco: Never Assessed Sex and Gender Information Value Date Recorded Sex Assigned at Not on file Gender Identity Not on file Sexual Orientation Not on file documented as of this encounter Plan of Treatment Not on file documented as of this encounter Visit Diagnoses Not on filedocumented in this encounter Care Teams Pleater Hand Relationship Specialty Start Date End Date Lana Ramos MD [facility] [address] [place], [place] [id number] PCP - General 05/14/10 06/23/10 documented as of this encounter
--- OUTSIDE RECORDS SUMMARY | 2024-02-08 15:33 | XMS_ITS | Encounter Summary ---
Author Organization [facility] [place] [address] Care Team Providers Care Display Designer Name Role Phone Hoa Jacques APRN Primary Care Provider + Reason for Visit * Reason Comments Skin Check Encounter Details Date Type Department Care Team (Late st Contact Info) Description 01/01/2011 10:30 AM EDT Office Visit Dermatology [address] [place] [address] [address] [place] [address] David Ayoub MD [address] [place] [address] RD, [facility] [address] Personal history of malignant melanoma (Primary Dx); Rosacea; Basal cell carcinoma of back Social History Tobacco Use Types Packs/Day Years Used Date Smoking Tobacco: Never Assessed Sex and Gender Information Value Date Recorded Sex Assigned at Not on file Gender Identity Not on file Sexual Orientation Not on file documented as of this encounter Progress Notes * David Ayoub MD - 01/01/2011 11:13 AM EDT [...] submitted for pathologic analysis. Pathology Addendum per [facility] 01/09/11 : Basal Cell Carcinoma, nape of neck documented in this encounter Plan of Treatment Not on file documented as of this encounter Visit Diagnoses Diagnosis Personal history of malignant melanoma- Primary Personal history of malignant melanoma of skin Rosacea Basal cell carcinoma of back Basal cell carcinoma of skin of trunk, except scrotum documented in this encounter Care Teams Display Designer Relationship Specialty Start Date End Date Hoa Jacques APRN PCP - General 06/24/10 12/19/17 documented as of this encounter
--- OUTSIDE RECORDS SUMMARY | 2024-02-08 15:33 | XMS_ITS | Encounter Summary ---
Author Organization [facility] Address [address] [place] [address] Care Team Providers Care Easement Man Name Role Phone Unavailable Primary Care Provider Unavailabl e Encounter Details Date Type Department Care Team (Late st Contact Info) Description 01/17/2002 Results Only [facility] - [place] conversion [address] [place] [address] Quin Jacques, REVERSE LOGISTICS ANALYST [address] [place] [address] Social History Tobacco Use Types [...] Priority Date/Time Associated Diagnosis Comments CYTOPATHOLOGY Routine 01/17/2002 0:00 EDT documented in this encounter Results * CYTOPATHOLOGY (01/17/2002 0:00 EDT) Pathology Report: CYTOPATHOLOGY REPORT Reports generated via electronic interface contain original data; however they are lacking the format of the original report. Caution should be taken when reading/interpreti ng unformatted reports. Name: ? DHAVAL YEE ? Accession #: ? [id number] : ? 1950 (Age: 51) ??F ?Collect Date: ? 01/17/2002 Location: ? [facility] ? Receive Date: ? 01/19/2002 Provider: ?QUIN JACQUES REVERSE LOGISTICS ANALYST Copy to: ? Specimen/Source: ?ThinPrep Pap Test, Cervix/Endocervix Last Menstrual Period: ? 06/22 ? SPECIMEN ADEQUACY ? Satisfactory for Evaluation - transformation zone component present GENERAL CATEGORIZATION ? Negative for Intraepithelial Lesion or Malignancy ? Document reviewed and electronically signed by: ? YOLANDA Warren(ASCP) ? Report Date: ??01/24/2002 11:45 End of Report JERALD FLOREZ 01/17/2002 01/19/2002 Quin Jacques NP PATHOLOGY ORDERABLES [facility] [address] [place] [address] documented in this encounter Visit Diagnoses Not on filedocumented in this encounter
--- OUTSIDE RECORDS SUMMARY | 2024-02-08 15:33 | XMS_ITS | Encounter Summary ---
[place] [address] Care Team Providers Care Nut Processing Supervisor Name Role Phone Hoa Jacques APRN Primary Care Provider + Reason for Visit * Reason Comments Suture / Staple Removal Encounter Details Date Type Department Care Team (Late st Contact Info) Description 08/05/2011 10:15 AM EST Office Visit Dermatology [address] [place] [address] [address] [place] [address] David Ayoub MD [address] [place] [address] RD, [place] [address] Visit for suture removal (Primary Dx) Social History Tobacco Use Types Packs/Day Years [...] encounter Visit Diagnoses Diagnosis Visit for suture removal- Primary Encounter for removal of sutures documented in this encounter Care Teams Nut Processing Supervisor Relationship Specialty Start Date End Date Hoa Jacques APRN PCP - General 06/24/10 12/19/17 documented as of this encounter
--- OUTSIDE RECORDS SUMMARY | 2024-02-08 15:33 | XMS_ITS | Encounter Summary ---
Author Organization [facility] [place] [address] Care Team Providers Care Surtass Analyst Name Role Phone Hoa Jacques APRN Primary Care Provider + Reason for Visit * Reason Comments Procedure Encounter Details Date Type Department Care Team (Late st Contact Info) Description 07/29/2011 10:15 AM EST Office Visit Dermatology [address] [place] [address] [address] [place] [address] David Ayoub MD [address], [facility] [place] [address] Nevus (Primary Dx) Social History Tobacco Use Types [...] Progress Notes * David Ayoub MD - 07/29/2011 11:10 AM [...] suture removal and biopsy results by Dr. Ayobu in [facility]. Pathology Addendum per [facility] 08/01/11 : Sites A and B : Intradermal nevus documented in this encounter Plan of Treatment Not on file documented as of this encounter Visit Diagnoses Diagnosis Nevus- Primary Benign neoplasm of skin, site unspecified documented in this encounter Care Teams Surtass Analyst Relationship Specialty Start Date End Date Hoa Jacques, TRACK REPAIRER PCP - General 06/24/10 12/19/17 documented as of this encounter
--- OUTSIDE RECORDS SUMMARY | 2024-02-08 15:33 | XMS_ITS | Encounter Summary ---
[place] [address] Care Team Providers Care Denture Laboratory Technician Name Role Phone Hoa Jacques APRN Primary Care Provider + Reason for Visit * Reason Comments Skin Check Encounter Details Date Type Department Care Team (Late st Contact Info) Description 07/17/2011 11:15 AM EST Office Visit Dermatology [address] [place] [address] [address] [place] [address] David Ayoub MD [address] [place] [address] RD, [facility] [place] [address] History of malignant melanoma (Primary Dx); History [...] Progress Notes * David Ayoub MD - 07/17/2011 12:09 PM EST Problem: 1. Six-month skin checkup. 2. History of malignant melanoma, 0.48mm Breslow depth, central upper back, 05/2010. 3. History of BCCa, nape of neck, 12/2010. 4. 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 Hope follows up for a six-month check. She has been doing well. Physical examination shows good healing without evidence of recurrence at both of the BCCa treatment sites on the nape of her neck as well as the melanoma site on the central upper back. Careful examination of the head, neck, chest, back, hands, arms, forearms, thighs and calves is otherwise benign. Her Rosacea is moderately active but she is satisfied with the level of control with just the topical MetroGel. She points to some compound versus intradermal nevi on the right nasal alar sill and on the right nasal tip and would like to have these removed because they are often sore and irritated. Assessment & Plan: Rosacea. a. Mild diffuse papulopustular disease across face and nose today. b. Continue Metronidazole 0.75% Gel on a BID basis when she does not have a cold, this controls her to her satisfaction. History of malignant melanoma, 0.48mm Breslow depth, central upper back, 05/2010. a. No evidence of recurrence. b. Patient reassured. c. RTC in six months for repeat check. History of BCCa, left upper back. a. No evidence of recurrence. b. Patient reassured. Painful nevi, right nasal tip and right nasal alar sill. a. Will schedule a 45-minute appointment for excision of these in the near future. Copy: Lana Ramos MD documented in this encounter Plan of Treatment Not on file documented as of this encounter Visit Diagnoses Diagnosis History of malignant melanoma- Primary Personal history of malignant melanoma of skin History of basal cell carcinoma Personal history of other malignant neoplasm of skin Rosacea documented in this encounter Care Teams Denture Laboratory Technician Relationship Specialty Start Date End Date Hoa Jacques, SHO PCP - General 06/24/10 12/19/17 documented as of this encounter
--- OUTSIDE RECORDS SUMMARY | 2024-02-08 15:33 | XMS_ITS | Referral Summary ---
Author Organization [facility] Address [address] [place] [address] Care Team Providers Care Interactive Media Designer Name Role Phone Unknown, Provider Primary Care Provider [phone] Social History Tobacco Use Types Packs/Day Years Used Date Smoking Tobacco: Never Assessed Sex and Gender Information Value Date Recorded Sex Assigned at Not on file Gender Identity Not on file Sexual Orientation Not on file Plan of Treatment Not on file Care Teams Interactive Media Designer Relationship Specialty Start Date End Date Unknown, Provider, PCP - General 05/21/10
--- OUTSIDE RECORDS SUMMARY | 2024-02-08 15:33 | XMS_ITS | Encounter Summary ---
Author Organization [facility] [place] [address] Care Team Providers Care Network Strategist Name Role Phone Dean Camilo Primary Care Provider [phone] Encounter Details Date Type Department Care Team (Late st Contact Info) Description 06/20/2010 Orders Only Dermatology at [address] [place] [address] David Ayoub MD [address], N[address] Claire DERMATOLOGY [place], [place] [address] Social History Tobacco Use Types Packs/Day Years Used Date Smoking Tobacco: Never Assessed [facility] Utilities Answer Date Recorded In the past 12 months has [facility] electric, gas, oil, or water company threatened [...] Procedure Name Priority Date/Time Associated Diagnosis Comments SURGICAL PATHOLOGY REPORT Routine 06/20/2010 6:37 PM EST documented in this encounter Results * Surgical Pathology Report (06/20/2010 6:37 PM EST) Surgical Pathology Report [id number] ? Location: [facility] The signing pathologist has (i) examined the relevant preparation(s) for the specimen(s) and (ii) rendered or confirmed the diagnosis(es). . ?Pathology Surgical Pathology Final Report Clinical Information Specimen Submitted: A - Central upper back, excision Clinical History: Malignant melanoma 0.41 mm Breslow per FA [id number] punch BX for excision Clinical Diagnosis: Malignant melanoma Report to: David Ayoub MD, III [facility] Dermatology [place], [place] ??[address] Gross Description Labeled/Fixative : ? Central upper back, formalin. Qty/Size/Weight: ?Single, 4.0 x 2.3 x 0.8 cm. Tissue Description: ?? Ellipse of unoriented, campos-white, wrinkled skin ?demonstrating centrally circumscribed, variegated, ?brown-black macule, covering a 2.0 x 1.6-cm, central ?area of the skin ellipse. Sections/Process ing: ??The specimen is inked and serially sectioned. ??The ?ends are submitted in (1); the remainder of the ?specimen submitted in (2-7). ??(T7) ??aje/SHB Microscopic Description Slides reviewed, microscopic description not recorded. Diagnosis Specimen: ? Central upper back, excision Histologic Type: ?Malignant melanoma, superficial spreading type Ulceration: ? Absent Depth of Invasion: ?0.48 mm Memo's Level: ?III Regression: ? Present Vascular Invasion: ?Not identified Perineural Invasion: ?Not identified Microscopic Satellites: Not identified Dermal mitoses per mm2: Less than 1 Tumor infiltrating ??lymphocytes: ?Non-brisk Solar Elastosis: ?Absent Associated Nevus: ? Not identified Peripheral Margins: ? Melanoma in situ approaches to 2.8 mm from the ?nearest peripheral margin. ?Invasive melanoma approaches to 6.5 mm from the ?nearest peripheral margin. Deep Margin: ?Not involved Pathologic TNM Codes: ?? pT1a Additional Findings: ?Scar, consistent with prior biopsy site . Diagnosis CR-0 06/26/10 ALEX 06/26/10 Verified by: ? Memo Dukes MD ?Dermatopatholo gist ?(Electronic Signature) The attending pathologist whose signature appears on this report has reviewed all diagnostic slides and has edited the gross and/or microscopic portion of the report in rendering the final pathologic diagnosis. BRADLEY HESTER 06/20/2010 6:37 PM EST David Ayoub MD PATHOLOGY/CYTOLOGY O RDERABLES BRADLEY HESTER documented in this encounter Visit Diagnoses Not on filedocumented in this encounter Additional Health Concerns Infection Onset Date Last Indicated Resolved Time Rule Out Respiratory 11/05/2023 11/05/2023 024 6:01 AM EDT Rule Out COVID-19 11/05/2023 11/05/2023 11/05/2023 6:01 AM EDT Rule Out C. difficile 11/11/2023 11/11/20232023 10:49 AM EDT documented as of this encounter Care Teams Network Strategist Relationship Specialty Start Date End Date Dean Camilo PA [address] [place] [address] PCP - General Internal Medicine 02/01/21 documented as of this encounter
--- OUTSIDE RECORDS SUMMARY | 2024-02-08 15:33 | XMS_ITS | Encounter Summary ---
[place] [address] Care Team Providers Care Professional Services Manager Name Role Phone Hoa Jacques APRN Primary Care Provider + Encounter Details Date Type Department Care Team (Late st Contact Info) Description 06/20/2010 [place] [phone] David Monsalve MD [address] [place] [address], [place] [address] Social History Tobacco Use Types Packs/Day Years [...] EST documented in this encounter Results * PATHOLOGY SURGICAL PATHOLOGY FINAL REPORT (06/20/2010 6:37 PM EST) Surgical Pathology Report ? [facility] ? Provider: ?? DAVID MONSALVE ?? Pt. Name: ?? DHAVAL YEE ? Acc #: ?[id number] ? Pt. ? Col Date: ?? 06/20/2010 ?/Sex: ?1950,(60 ? years),Female ? Rec Date: ?? 06/24/2010 ?LOC: ?[facility] ? SURGICAL PATHOLOGY ? ---Pathologic Diagnosis--- ? Specimen: ? Central upper back, excision ? Histologic Type: ?Malignant melanoma, superficial spreading [...] to 2.8 mm from the ? nearest peripheral margin. ? Invasive melanoma approaches to 6.5 mm from the ? nearest peripheral margin. ? Deep Margin: ?Not involved ? Pathologic TNM Codes: ?? pT1a ? Additional Findings: ?Scar, consistent with prior biopsy site ? CR-0 ? 06/26/10 ? ALEX ? 06/26/10 Verified by: ? Memo Dukes MD ? Dermatopathologist ? (Electronic Signature) ? The attending pathologist whose signature appears on this report has ? reviewed all diagnostic slides and has edited the gross and/or ? microscopic portion of the report in rendering the final pathologic ? diagnosis. ? ---Microscopic Description--- ? Slides reviewed, microscopic description not recorded. ? ---Gross Description--- ? Labeled/Fixative: ? Central upper back, formalin. ? Qty/Size/Weight: ?Single, 4.0 x 2.3 x 0.8 cm. ? Tissue Description: ?? Ellipse of unoriented, campos-white, wrinkled skin ? demonstrating centrally circumscribed, variegated, ? [facility] ? Provider: ?? DAVID MONSALVE ?? Pt. Name: ?? DHAVAL YEE ? Acc #: ?[id number] ? Pt. ? Col Date: ?? 06/20/2010 ?/Sex: ?1950,(60 ? years),Female ? Rec Date: ?? 06/24/2010 ?LOC: ?[facility] ? brown-black macule, covering a 2.0 x 1.6-cm, central ? SURGICAL PATHOLOGY ? area of the skin ellipse. ? Sections/Processing: ??The specimen is inked and serially sectioned. ??The ? ends are submitted in (1); the remainder of the ? specimen submitted in (2-7). ??(T7) ??aje/SHB ? ---Clinical Information--- ? Specimen Submitted: ? A - Central upper back, excision ? Clinical History: ? Malignant melanoma 0.41 mm Breslow per [id number] punch BX for excision ? Clinical Diagnosis: ? Malignant melanoma ? Report to: ? David Monsalve MD, III ? [facility] ? Dermatology ? . [place], [place] ??[address] BRADLEY HESTER 06/20/2010 6:37 PM EST David Monsalve MD PATHOLOGY/CYTOLOGY O RDERABLES BRADLEY HESTER documented in this encounter Visit Diagnoses Not on filedocumented in this encounter Care Teams Professional Services Manager Relationship Specialty Start Date End Date Hoa Jacques APRN PCP - General 06/24/10 12/19/17 documented as of this encounter
--- OUTSIDE RECORDS SUMMARY | 2024-02-08 15:33 | XMS_ITS | Encounter Summary ---
[facility] Organization [facility] [place] [address] Care Team Providers Care Pearl Diver Name Role Phone Hoa Jacques APRN Primary Care Provider + Encounter Details Date Type Department Care Team (Late st Contact Info) Description 01/02/2011 Abstract Radiation Oncology at [address] [phone] Lisbet Cortez, KRIS Social History Tobacco Use Types Packs/Day Years [...] on filedocumented in this encounter Care Teams Pearl Diver Relationship Specialty Start Date End Date Hoa Jacques APRN PCP - General 06/24/10 12/19/17 documented as of this encounter
--- OUTSIDE RECORDS SUMMARY | 2024-02-08 15:33 | XMS_ITS | Encounter Summary ---
Author Organization [facility] Address [address] [place] [address] Care Team Providers Care Wedding Florist Name Role Phone Unknown, Provider Primary Care Provider Encounter Details Date Type Department Care Team (Late st Contact Info) Description 07/09/2020 Lab Requisition [facility] Pathology & Laboratory Medicine - [facility] [address] [place] [address] Outr Resulting Lab, Provider Social History Tobacco Use Types Packs/Day Years Used Date Smoking Tobacco: Never Assessed Sex and Gender Information Value Date Recorded Sex Assigned at Not on file Gender Identity Not on file Sexual Orientation Not on file documented as of this encounter Plan of Treatment Not on file documented as of this encounter Procedures Procedure Name Priority Date/Time Associated Diagnosis Comments ZZCOVID-19 TEST [facility] PCR Today 07/08/2020 22:15 EST COVID-19 TESTING Routine 07/08/2020 22:1 5 EST documented in this encounter Results * COVID-19 TEST [facility] PCR (07/08/2020 22:15 EST) Swab ENTIRE NASOPHARYNX / Unknown 07/08/2020 22:15 EST 07/09/2020 15:51 EST Provider Outr Resulting Lab MICROBIOLOGY - GENERAL ORDERABLES [facility] [address] [place] [address] * COVID-19 TESTING (07/08/2020 22:15 EST) COVID-19 rt-PCR Result Negative Negative 07/09/2020 21:11 EST [facility] Comment: This test has not been FDA cleared or approved. This test has been authorized by FDA under an EUA for use by authorized laboratories. This test has been authorized only for detection of nucleic acid from 2019-nCoV, not for any other viruses or pathogens. This test is only authorized for the duration of the declaration that circumstances exist justifying the authorization of emergency use of in vitro diagnostic tests for detection and/or diagnosis of 2019-nCoV under section 564(b)(1) of Act, 21 U.S.C ?? 360bbb-3(b) (1), unless the authorization is terminated or revoked sooner. Negative results do not preclude 2019-nCoV infection and should not be used as the sole basis for treatment or other patient management decisions. Negative results must be combined with clinical observations, patient history, and epidemiological information. Performed on the [employer] Fusion instrument Performing Lab [facility] 07/09/2020 21:11 [facility] Swab 07/08/2020 22:1 5 EST 07/09/2020 15:51 EST Provider Outr Resulting Lab MICROBIOLOGY - GENERAL ORDERABLES [facility] [address] [place] [address] documented in this encounter Visit Diagnoses Not on filedocumented in this encounter Care Teams Wedding Florist Relationship Specialty Start Date End Date Unknown, Provider, PCP - General 05/21/10 documented as of this encounter
--- OUTSIDE RECORDS SUMMARY | 2024-02-08 15:33 | XMS_ITS | Encounter Summary ---
Author Organization [facility] Address [address] [place] [address] Care Team Providers Care Patient Services Rep Name Role Phone Unknown, Provider Primary Care Provider Encounter Details Date Type Department Care Team (Late st Contact Info) Description 05/20/2010 Results Only [facility] [phone] Guillermo Valladares MD [address] [place] [phone] Social History Tobacco Use Types Packs/Day Years Used Date Smoking Tobacco: Never Assessed Sex and Gender Information Value Date Recorded Sex Assigned at Not on file Gender Identity Not on file Sexual Orientation Not on file documented as of this encounter Plan of Treatment Not on file documented as of this encounter Procedures Procedure Name Priority Date/Time Associated Diagnosis Comments SURGICAL PATHOLOGY Routine 05/20/2010 0:00 EST documented in this encounter Results * SURGICAL PATHOLOGY (05/20/2010 0:00 EST) Pathology Report: SURGICAL PATHOLOGY REPORT ? Reports generated via electronic interface contain original data; ? however they are lacking the format of the original report. ? Caution should be taken when reading/interpreting unformatted reports. ? Name: ? YEE, DHAVAL P ? Accession #: ? [id number] ? : ? 1950 (Age: 60) ??F ? Collect Date: ? 05/20/2010 ? Location: ? [facility] ? Receive Date: ? 05/20/2010 ? Provider: GUILLERMO P KENIA MD ? Copy to: AARTI OAKLEY MD ? Final Pathologic Diagnosis: ? Skin of back, punch biopsy: ? 1. ?Malignant melanoma, invasive (superficial spreading type) (AJCC: ? pT1a, pNX). ??See comment. ? - Maximum tumor (Breslow) thickness: ??0.41 mm. ? - Anatomic (Memo) level: ??II. ? - Epidermal ulceration: ??Not identified. ? - Lymphovascular invasion: ??Not identified. ? - In-transit metastases/satellite metastases: ??Not able to assess. ? - Desmoplasia: ??Not identified. ? - Neurotropism: ??Not identified. ? - Tumor regression: ??Not identified. ? - Mitotic index: ??Less than 1 per millimeter squared. ? - Associated nevus: ??Not identified. ? - Lymphocytic infiltrate: ??Present, non-brisk. ? - Margins of punch biopsy specimen: ?- Peripheral margins: ?- Positive for invasive melanoma. ?- Invasive melanoma extends to peripheral tissue edge. ?- Positive for melanoma in situ. ?- Melanoma in situ extends to peripheral tissue edge. ?- Deep margin: ?- Negative for invasive melanoma. ?- Invasive melanoma present approximately 4.0 mm from deep tissue edge. ? Comment: ? Multiple sections of the biopsy were reviewed. ??The biopsy consists of ? malignant melanoma with a superficially invasive component. ??The melanoma is ? transected at the peripheral edges of the punch biopsy specimen. ??(Dr. Mitchell)/luiz ? Microscopic Description: ? Sections consist of a bisected punch biopsy of skin to the deep reticular ?? dermis. ??The epidermis varies in thickness, with a mildly hyperplastic rete ? ridge pattern in some areas. ??There is a highly cellular compound proliferation of melanocytes that spans the biopsy specimen. ??The intraepidermal component ? predominates [...] including the granular layer. The proliferation extends into the epithelium of follicular units. ??The ? melanocytes are enlarged and some are spindle shaped. ??They have high nuclear to ? cytoplasmic ratios with dark irregular nuclei. ??The dermis is expanded by ? fibroplasia. ??At one edge of the biopsy, there is an invasive component ? consisting of irregular nests of similar melanocytes. ??No definitive mitotic ? figures are evident. ??There is a patchy lymphomononuclear infiltrate with ? clusters of melanophages. ??Deeper sections show similar features. ? Immunohistochemical staining was performed on this case to further characterize the lesion. ??Positive and negative controls stained appropriately. ??( ? Mc/luiz ? Antibody (Clone) ? Result ? [place]-1 (Melan-A)(A103, [facility]) ? Highlights architectural ?? features of melanocytic ?proliferation with well developed ? pagetoid migration ? NOTE: ??One or more of the reagents used in immunohistochemical testing in this case may not have been cleared or approved by the U.S. Food and Drug ? Administration (FDA). ??The FDA has determined that such clearance or approval is not necessary. ??These tests are used for clinical purposes. ??They should not be regarded as investigational or for research. ??These reagents' ??performance ? characteristics have been determined by [facility]. ??This ? laboratory is certified under the Clinical Laboratory Improvement Amendments of 1988 (CLIA-88) as qualified to perform high complexity clinical laboratory ? testing. ? Document reviewed and electronically signed by: ? BOBBY L COOK MD ? Report ??Date: 05/23/2010 16:22 ? By the signature above, the attending physician certifies that he/she has ? personally conducted a gross and/or microscopic examination of the described ? specimens and rendered or confirmed the above diagnosis. ? Specimen(s) Received: ? Back skin ? Clinical History: ? Nevus ? Gross Description: ? Received in formalin labelled Yee, Dhaval and back ??skin is a ? punch biopsy of alaniz-brown skin measuring 0.4 cm in diameter and 0.4 cm in ? thickness. ??The specimen is bisected and submitted entirely in one cassette. ? (Gayatri Dominguez)/luiz ? End of Report ? [facility] 05/20/2010 05/20/2010 11: 22 EST Guillermo Valladares MD PATHOLOGY ORDERABLES [facility] [address] [place] [address] documented in this encounter Visit Diagnoses Not on filedocumented in this encounter Care Teams Patient Services Rep Relationship Specialty Start Date End Date Unknown, Provider, PCP - General 05/21/10 documented as of this encounter
--- OUTSIDE RECORDS SUMMARY | 2024-02-08 15:33 | XMS_ITS | Encounter Summary ---
[place] [address] Care Team Providers Care Assistant Surveyor Name Role Phone Hoa Jacques APRN Primary Care Provider + Encounter Details Date Type Department Care Team (Late st Contact Info) Description 12/31/2010 Abstract Dermatology [address] [facility] [address] [place] [address] Lisbet Cortez RN Malignant melanoma Social History Tobacco Use Types Packs/Day Years [...] unspecified documented in this encounter Care Teams Assistant Surveyor Relationship Specialty Start Date End Date Hoa Jacques APRN PCP - General 06/24/10 12/19/17 documented as of this encounter
[2024-02-08 19:02] LABS: HCT 41.9 % (36.0-46.0); HGB 11.7 g/dL (11.2-15.7); MCH 22.7 pg (27.0-33.0); MCHC 27.9 % (32.0-36.0); MCV 81 fL (80-95); MPV 10.4 fL (8.0-11.0); Platelet Count 478 10^3/uL (130-400); RBC 5.16 10^6/uL (3.93-5.22); RDW 17.9 % (11.7-14.6); RDW-SD 52.7 fL; WBC 8.59 10^3/uL (4.4-10.8)
[2024-02-08 19:23] LABS: ALT 21 U/L (14-59); AST 18 U/L (15-37); Albumin 3.2 g/dL (3.4-5.0); Alkaline Phosphatase 68 U/L (46-116); Anion Gap 11.9 mmol/L (3-11); BUN 18 mg/dL (7-18); Bilirubin, Total 0.26 mg/dL (0.2-1.0); CO2 23.1 mmol/L (21.0-32.0); CREATININE 1.2 mg/dL (0.55-1.02); Calcium 9.3 mg/dL (8.5-10.1); Calculated LDL 66 mg/dL (<100); Chloride 99 mmol/L (98-107); Cholesterol 140 mg/dL (<200); Estimated GFR 47.21 (mL/min/1.73m2); Glucose 357 mg/dL (74-106); HDL Cholesterol 60 mg/dL (40-60); Sodium 134 mmol/L (136-145); Total Protein 7.5 g/dL (6.4-8.2); Triglyceride 70 mg/dL (<150)
[2024-02-08 19:47] LABS: Hemoglobin A1C > 13.0 % (<5.7)
== END 2024-02-08 15:13 | disposition home or self-care (01) ==
LOC: NCHCN 15:12
PROVIDERS: PCP Physician Assistant; Visit Provider Physician Assistant
DX: E11.9 Type 2 diabetes mellitus without complications (principal); I48.0 Paroxysmal atrial fibrillation
CPT/HCPCS: 80053; 80061; 85027; 83036

== ENCOUNTER 2024-02-24 16:59 | Inpatient (IN) | payer MEDICARE, MEDICAID, SELFPAY ==
[2024-02-24] VITALS (144 sets, daily range): BP systolic 72–180; BP diastolic 36–109; PULSE 88–147; RESP 3–28; TEMP 36.1; O2SAT 91–98
--- NOTE | 2024-02-24 17:00 | RT.EKG_ITS ---
APPROVED REPORT Exam: Resting ECG Reason for Exam: syncope Patient Location: E HR:132 bpm ECG Measurements Heart Rate 132 AXIS NE [id number] P [id number] QRSd 81 QRS 43 QT 315 T 17 QTc 468 Conclusion Atrial fibrillation...V-rate 91-158, irreg A-activity Low voltage, extremity and precordial leads...extremity<0.5mV, precordial<1.0mV Consider anteroseptal infarct...Q >30mS, dimin R, V1-V2 I have reviewed and interpreted ECG and agree with software generated interpretation.
--- NOTE | 2024-02-24 17:08 | DI.CT_ITS ---
Exam(s) CT CHEST/ABD/PEL W EXAM: CT CHEST/ABD/PEL W CLINICAL HISTORY: fall on thinners, R hip abd pain. TECHNIQUE: Imaging Protocol: Axial computed tomography images with coronal and sagittal reformatted images were created and reviewed CONTRAST MATERIAL: Intravenous: Omnipaque 350 Contrast volume:100 ml Oral: None COMPARISON: CT CT ABDOMEN PELVIS WO from 05/12/2023 FINDINGS: CHEST: LUNGS: No infiltrates nor evidence of lung contusion or pleural effusion or pneumothorax. No lung ma sses.. MEDIASTINUM: No evidence of sternal fracture nor mediastinal hematoma. Visualized thyroid unremarkab le.No incidental hilar nor mediastinal adenopathy. No axillary adenopathy. CARDIAC: Heart size is normal. There is no pericardial effusion.Diameter of the ascending thoracic a michael is enlarged at 3.9 cm. Otherwise intact with no evidence of dissection. The diameter of the mi d thoracic arch and descending thoracic aorta are normal. OSSEOUS: There is a compression fracture of L1 vertebral body which is unchanged from CT scan of [facility] 2022. No new fractures evident.. ABDOMEN: There is no ascites. No evidence of mesenteric nor bowel wall hematoma. LIVER: Intact. Normal size. No laceration or subcapsular hematoma. No lesions. No dilated intrahe patic ducts. GALLBLADDER/BILIARY: No obvious gallbladder pathology. CBD is not dilated. PANCREAS: No evidence of pancreatic mass nor dilatation of the pancreatic duct. SPLEEN: Spleen size is normal. There is no splenic laceration. There is a E well-defined 1.7 x 1.7 cm probable cyst in the anterior spleen. Better evident than on the prior noninfused study 2022. spl enic and portal veins are patent. ADRENALS: There are no significant adrenal masses. KIDNEYS: No evidence of renal laceration or subcapsular hematomas. No significant focal findings in the left kidney there is a benign cyst in the inferior pole of the left kidney measuring 4 x 3.5 cm, unchanged from April 2023. Smaller benign cyst in the superior pole of the left kidney noted romeo uring up to 1.5 cm, also unchanged. These benign cysts do not require further workup. No ominous so lid renal masses. No calculi. No hydronephrosis nor hydroureter.. ABDOMINAL AORTA: Abdominal aorta is intact and there is no evidence of aneurysm. Aortic bifurcation is intact as are the aortoiliac segments. LYMPH NODES: There is no retroperitoneal nor paraaortic adenopathy. ABDOMINAL WALL: No evidence of significant anterior abdominal wall nor inguinal hernia. There is a s ubcutaneous density in the midline pannus measuring 2.5 x 2.2 cm, slightly right of center. This is unchanged from April 2023. There is some overlying skin thickening. GI: There is no evidence of bowel obstruction. PELVIS: LYMPH NODES: There is no intrapelvic nor inguinal adenopathy. GI: No evidence of appendicitis.No evidence of sigmoid diverticulitis. URINARY BLADDER: There is a suprapubic catheter in place again noted. Urinary bladder is collapsed a round the catheter. REPRODUCTIVE: Uterus is partially obscured by beam hardening artifact from right hip prosthesis. Andra ears unremarkable. No obvious abnormal adnexal masses identified and no free fluid. OSSEOUS: There is a right hip prosthesis again noted. L1 compression fractures unchanged from prior study. Multilevel facet arthropathy noted. IMPRESSION: 1. No acute trauma findings in the chest. Diameter of the thoracic aorta is slightly prominent measu ring 3.9 cm. No dissection evident. 2. There is an L1 compression fracture which is not acute. It appears unchanged from CT scan of 04/23. 3. No significant trauma sequelae in the abdomen and pelvis. 4. There is a 1.7 x 1.7 cm benign cyst in the anterior aspect of the spleen. Spleen size is normal. 5. There is a suprapubic catheter in the urinary bladder. The bladder is not distended. RADIATION DOSE DELIVERED: 804.4mGy.cm Total DLP DATA REPOSITORY: All CT scans at this facility are submitted to the National Radiology Data Registry (NRDR) Dose Index Registry (DIR) with the [employer] (ACR). RADIATION OPTIMIZATION: All CT scans at this facility use at least one of these dose optimization te chniques: automated exposure control; mA and/or kV adjustment per patient size (includes targeted exa ms where dose is matched to clinical indication); or iterative reconstruction.
--- NOTE | 2024-02-24 17:16 | ED.GENADUL_ITS ---
Discharge Plan Disposition Patient Disposition: Home Condition: Stable Discharge Details Clinical Impression: Accident due to mechanical fall without injury, Atrial fibrillation with rapid ventricular response Primary Care Provider: Dean Camilo ED Provider: [facility] Home Meds and New Rx's Prescriptions: No Action nystatin 100,000 unit/gram powder 1 applic Topical BID PRN (Reason: itching) Qty: 60 11RF Rx Instructions: Apply to abdominal fold and under breasts. diltiazem HCl 120 mg capsule,extended release 24hr 120 mg PO DAILY Jardiance 10 mg tablet 10 mg PO DAILY insulin lispro [Humalog KwikPen Insulin] 100 unit/mL insulin pen See Rx Instructions SUBCUT QMEALS Patient Comments: INJECT 12 UNITS SUBCUTANEOUSLY DIRECTED WITH MEALS Rx Instructions: 12 units in AM and 6 units PM subcutaneously with meals; (DME) Depend Underwear For Women Lrg Misc See Rx Instructions .Route Qty: 100 11RF Rx Instructions: Depends pull up large lisinopril 10 mg Tablet 10 mg PO DAILY insulin glargine [Lantus Solostar U-100 Insulin] 100 unit/mL (3 mL) Insulin Pen 20 unit subcut HS Qty: 15 1RF metoprolol succinate 100 mg tablet extended release 24 hr 100 mg PO DAILY Qty: 0 0RF Xarelto 15 mg Tablet 15 mg PO DAILY magnesium oxide [MagOx] 400 MG tablet 400 mg PO DAILY Qty: 30 0RF metformin 1,000 mg tablet 1,000 mg PO BID Qty: 60 0RF omeprazole 20 MG capsule,delayed release(DR/EC) 20 mg PO DAILY Qty: 30 0RF furosemide 20 mg tablet 20 mg PO DAILY Qty: 30 0RF Patient Comments: pt unsure if they are taking this medication aspirin [Children's Aspirin] 81 mg Tablet,Chewable 81 mg PO DAILY Qty: 0 0RF atorvastatin 20 mg tablet 80 mg PO HS fluconazole [Diflucan] 200 mg tablet 200 mg PO DAILY Qty: 7 0RF Rx Instructions: take 1 tablet every 48 hours until completed nystatin 100,000 unit/gram powder 1 applic topical BID Qty: 60 0RF Discharge Instructions Instructions: Preventing Falls ED, Atrial Fibrillation and Atrial Flutter ED Additional Instructions: You were seen in the emergency department for your mechanical fall at home, you stated you had some right hip as well as a headache and some neck pain. We performed CT scans from your head through your pelvis and found no acute injuries. You have a stable L1 compression fracture from an old injury. As we discussed, there was a lytic lesion on your C4 vertebrae. You do state that you have had skin cancer in the past please follow-up with your primary care provider in investigating this issue. There is no acute bleeding, no intracranial bleeding, no acute fractures and you did passed an ambulatory trial here in the department, we did give you a smaller dose of your at home atrial fibrillation medicine called diltiazem by IV which resolved your atrial fibrilla tion with mild rapid ventricular response in the 120s to 130s. You were rate controlled on discharge and had some food. Please take the at home medications that you missed today once you arrive home including your diltiazem. Please do not hesitate to return to the emergency department for any acute concerns like dizziness, further falls, chest pain, shortness of breath, confusion, fever, abdominal. Referrals: Dean Camilo [Primary Care Provider] - HPI General Date/Time Provider Initiated Documentation: 02/24/24 17:08 . HPI Narrative: 73 year-old female presents to ED today by EMS with a chief complaint of mechanical fall at home, rapid heart rate with onset just prior to arrival. Quality described as patient went to answer her door and stumbled backwards- states she is on Xarelto, has a headache, mild neck pain, abdominal pain, and R hip pain, no radiation to bruising, hematoma, altered mentation, chest pain, shortness of breath, known syncope. Severity is described as moderate. Palliating factors include nothing specific attempted, placed in C-collar by EMS. Provoking factors include nothing specific, denies palpitations at time of events. Events leading up to the incident/Associated Symptoms: Patient has known atrial fibrillation. Patient is anticoagulated on Xarelto. Related Data Home Medications ?Medication ?Instructions ?Recorded ?Confirmed lisinopril 10 mg tablet 10 mg PO DAILY 05/12/19 05/12/23 nystatin 100,000 unit/gram topical 1 applic topical BID PRN itching 10/31/20 05/12/23 powder #60 grams insulin glargine 100 unit/mL (3 20 unit (0.2 mL) subcut HS #15 mL 11/27/20 05/12/23 mL) subcutaneous pen (Lantus Solostar U-100 Insulin) metoprolol succinate 100 mg 100 mg PO DAILY #0 tabs 11/27/20 05/12/23 tablet,extended release 24 hr rivaroxaban 15 mg tablet (Xarelto) 15 mg PO DAILY 07/31/21 05/12/23 furosemide 20 mg tablet 20 mg PO DAILY #30 tabs 08/02/21 05/12/23 magnesium oxide 400 mg (241.3 mg 400 mg PO DAILY #30 tabs 08/02/21 05/12/23 magnesium) tablet (MagOx) metformin 1,000 mg tablet 1,000 mg PO BID #60 tabs 08/02/21 05/12/23 omeprazole 20 mg capsule,delayed 20 mg PO DAILY #30 caps 08/02/21 05/12/23 release diltiazem HCl 120 mg 120 mg PO DAILY 10/16/21 05/12/23 capsule,extended release 24 hr empagliflozin 10 mg tablet 10 mg PO DAILY 10/16/21 05/12/23 (Jardiance) insulin lispro 100 unit/mL See Rx Instructions subcut QMEALS 12/17/21 05/12/23 subcutaneous pen (Humalog KwikPen (U-100) Insulin) diaper,brief,adult,disposable #100 ea 09/30/22 05/12/23 (Depend Underwear For Women Large) aspirin 81 mg chewable tablet 81 mg PO DAILY #0 tabs 12/31/22 05/12/23 (Children's Aspirin) atorvastatin 20 mg tablet 80 mg PO HS 01/26/23 05/12/23 fluconazole 200 mg tablet 200 mg PO DAILY #7 tabs 05/12/23 (Diflucan) nystatin 100,000 unit/gram topical 1 applic topical BID #60 grams 05/12/23 powder Previous Rx's ?Medication ?Instructions ?Recorded nystatin 100,000 unit/gram topical 1 applic topical BID PRN itching 10/31/20 powder #60 grams insulin glargine 100 unit/mL (3 20 unit (0.2 mL) subcut HS #15 mL 11/27/20 mL) subcutaneous pen (Lantus Solostar U-100 Insulin) metoprolol succinate 100 mg 100 mg PO DAILY #0 tabs 11/27/20 tablet,extended release 24 hr furosemide 20 mg tablet 20 mg PO DAILY #30 tabs 08/02/21 magnesium oxide 400 mg (241.3 mg 400 mg PO DAILY #30 tabs 08/02/21 magnesium) tablet (MagOx) metformin 1,000 mg tablet 1,000 mg PO BID #60 tabs 08/02/21 omeprazole 20 mg capsule,delayed 20 mg PO DAILY #30 caps 08/02/21 release diaper,brief,adult,disposable #100 ea 09/30/22 (Depend Underwear For Women Large) aspirin 81 mg chewable tablet 81 mg PO DAILY #0 tabs 12/31/22 (Children's Aspirin) fluconazole 200 mg tablet 200 mg PO DAILY #7 tabs 05/12/23 (Diflucan) nystatin 100,000 unit/gram topical 1 applic topical BID #60 grams 05/12/23 powder Allergies Allergy/AdvReac Type Severity Reaction Status Date / Time trazodone AdvReac Intermediate NIGHTMARES Verified 02/24/24 17:09 General Stated Complaint: [id number] ARGENIS: 2 Review of Systems All systems reviewed & are unremarkable except as noted in HPI and below Exam Narrative Exam Narrative: GENERAL APPEARANCE: Well-nourished, non-toxic, awake and alert, atraumatic, no acute distress. SKIN: Warm, pink, dry, i diffuse fungal dermatitis most focal on abdomen and torso, mild erythema to bilateral shins with a small 1 cm bullae at the left padilla- chronic skin changes of t2DM HEAD: Normocephalic, atraumatic-no scalp hematoma, no Malik sign, no periorbital ecchymosis, normal hair distribution for gender/age. EYES: Normal conjunctiva, no exudates on lids/lashes. ENT: Nares patent, no circumoral cyanosis, no facial swelling NECK: Supple, trachea midline, painless cervical ROM, mild midline vertebral tenderness without crepitus or step-offs LUNGS/CHEST: Lungs CTA bilaterally-no rhonchi/rales/wheezes diffusely, non- labored respirations, normal A/P diameter, symmetrical expansion, no chest wall deformity HEART (CV/PV): Tacky irregular rate and rhythm without murmur, no peripheral edema, no JVD. ABDOMEN: Soft, non-distended, no guarding mild diffuse tenderness without Coles sign, no rigidity, no Murphy John, no CVA tenderness bilaterally to percussion. MSK: Normal ROM, no swelling/deformity to bilateral UEs or LEs, moving all extremities without weakness, no cyanosis, spine midline without tenderness, normal curvature, tenderness to right hip without crepitus, able to SLR with only mild limited range of motion due to pain. NEURO: Mental Status AAOx4 - alert to person, place, time, events No facial droop, no forehead involvement, no dysmetria with cerebellar testing. Motor: No focal weakness - strength 5/5 in bilateral UEs and LEs, proximal and distal, symmetric. Sensory: sensation intact to light touch globally. Gait normal: patient ambulated without ataxia in ED with cane at baseline post imaging for ambulatory trial. PSYCH: euthymic, cooperative, pleasant, appropriate speech Course Vital Signs Vital signs: Vital Signs Temperature 36.1 C L 02/24/24 16:59 Pulse 141 H 02/24/24 16:59 Respiratory Rate 22 02/24/24 16:59 Blood Pressure 163/69 H 02/24/24 16:59 Pulse Oximetry 97 02/24/24 16:59 Temperature 36.1 C L 02/24/24 16:59 Temperature Source Skin 02/24/24 16:59 Pulse 141 H 02/24/24 16:59 Respiratory Rate 22 02/24/24 16:59 Blood Pressure 163/69 H 02/24/24 16:59 Blood Pressure Position Supine 02/24/24 16:59 Pulse Oximetry 97 02/24/24 16:59 Oxygen Delivery Method Room Air 02/24/24 16:59 Oxygen Flow Rate 0 02/24/24 16:59 Pain Level 7 02/24/24 16:59 Medical Decision Making This dictation utilizes [id number] dictation software and may contain unedited grammatical errors. 73 year-old female presents to ED today by EMS with a chief complaint of mechanical fall at home, rapid heart rate with onset just prior to arrival. Quality described as patient went to answer her door and stumbled backwards- states she is on Xarelto, has a headache, mild neck pain, abdominal pain, and R hip pain, no radiation to bruising, hematoma, altered mentation, chest pain, shortness of breath, known syncope. Severity is described as moderate. Palliating factors include nothing specific attempted, placed in C-collar by EMS. Provoking factors include nothing specific, denies palpitations at time of events. Events leading up to the incident/Associated Symptoms: Patient has known atrial fibrillation. Patient is anticoagulated on Xarelto. Patients' medical history: History of malignant melanoma, GERD, atrial fibrillation, pulmonary hypertension, TIA, CHF, T2DM, DNR status, fungal dermatitis. Family and social history: lives at home, no exercises, eats normal diet. Pertinent exam findings / vital signs include states headache without scalp hematoma, no periorbital ecchymosis or Malik sign, no midline vertebral cervical tenderness/crepitus/step-offs, moving all extremities without issue, mild right hip tenderness without crepitus, able to SLR with some mild pain, diffuse abdominal pain without rigidity or peritoneal signs, irregular tachycardic rhythm, significant fungal dermatitis on anterior chest, mild erythema to bilateral shins with bullae present on left padilla consistent with cellulitis. Differential / pathologies of concern include ICH, fracture, strain/sprain, atrial fibrillation with RVR. Diagnostic studies of: -CBC, CMP, BNP, serial troponins, lipase, amylase, CT head and C-spine without contrast, CT chest abdomen pelvis with contrast, thoracic and lumbar recons. -CBC shows chronic anemia improved from last visit -CMP shows no actionable abnormality, glucose 266 -Serial troponins negative -BNP 1531 -Amylase negative -All lipase is elevated but patient has no nausea vomiting, not 3 times the upper limit of normal -CT scans are negative for intracranial bleeding, any acute fracture, there is a note of a lytic lesion at C4 I did discuss with the patient about her prior melanoma she says she can follow-up with her primary care provider. -EKG showed A-fib with RVR without any acute ST changes or T wave inversions, do not suspect ACS without chest pain Interventions of: -Initially given 500mL saline, given 20mg IV diltiazem push with resolution of RVR, completed ambulatory trial without return to RVR. Just prior to discharge, patients vitals showed return of RVR, her IV had been removed at this time, she will need to await RCT, will give her PO dose diltiazem and monitor- does take 100mg metoprolol- could be given this if no improvement in rate as well, just would like meds spaced out a bit. -Maintaining RVR from 135-150bpm, will give 5mg Lopressor with re-evaluation and home-PO dose given likely by Dr. Russell after shift-change. ED Course/Assessment/Plan: 73-year-old female got up to answer her door at home, stumbled and fell backwards hitting her head, reporting right hip pain most focal with a mild headache and mild neck pain as well as abdominal pain, hand scan is negative for any acute injury we did discuss at length her possible lytic lesion on C4 with her history of malignant melanoma. She will follow-up with primary care to pursue investigation of this. She was found to be in RVR in the 120s by EMS, was given 1 dose of IV diltiazem here with complete resolution of her RVR. She did not return to RVR with significant ambulatory trial here in the department. She was awaiting discharge after eating an egg salad sandwich and a ride home by RCT, discharge vitals showed her heart rate was back into RVR in the 130s. At this time we will give her her p.o. meds as her IV had been removed of 120 mg of CD Cardizem, she also takes 100 mg of home dose metoprolol but has not taken it yet today, I will avoid giving a beta-alicia and calcium channel alicia at the same time p.o. Patient is signed out to oncoming provider Dr. Madyson Russell at shift change with reevaluation of her heart rate and likely discharge, she may need further IV intervention but likely does not need electrical cardioversion. Findings not consistent with intracranial hemorrhage, new fracture, solid or hollow organ injury, pneumonia, ACS. Disposition of Accident due to Mechanical Fall Without Injury, Atrial Fibrillation with Rapid Ventricular Response. Patient verbalized understanding of the plan and return to ED criteria and eng aged in shared decision making. Medical Records Medical records reviewed: Yes I reviewed the patient's medical records. Imaging Data Radiologic Study: Attestation: I personally reviewed and interpreted this imaging study as follows: Imaging: CT Scan Radiologist's impression: EXAM: CT HEAD CERVICAL SPINE WO CLINICAL HISTORY: fall at home, on thinners, head neck pain. TECHNIQUE: Imaging Protocol: Axial computed tomography images with coronal and sagittal reformatted images were created and reviewed COMPARISON: No exams were available for comparison FINDINGS: BRAIN: There are no skull fractures nor fluid in the visualized paranasal sinuses. There is no evidence of intracranial hemorrhage, mass effect, or shift of midline structures. There are no extra-axial fluid collections. The ventricles are not enlarged or shifted and there is no blood within the ventricular system nor within the basal cisterns. CERVICAL SPINE: There is no evidence of fracture nor listhesis. No significant prevertebral soft tissue swelling. C1 arch and odontoid process appear unremarkable. Disc spaces are well maintained. Facet joints appear unremarkable. No obvious degenerative changes. There is no significant facet joint malalignment. However, there is an abnormal lucent area in the left side of the C 4 vertebral body and pedicle which appears possibly lytic, this measuring 11 mm wide by 9 mm AP by 7 mm craniocaudal. IMPRESSION: No acute intracranial findings on this noninfused CT scan of the brain. No evidence of acute cervical spine fracture, malalignment, nor acute compromise of the cervical spinal canal. Incidentally noted is an abnormal lucent area in the left side of C4 vertebral body measuring 11 x 9 x 7 mm. This may be lytic. Radiologic Study #2: Attestation: I personally reviewed and interpreted this imaging study as follows: Imaging: CT Scan Radiologist's impression: EXAM: CT CHEST/ABD/PEL W CLINICAL HISTORY: fall on thinners, R hip abd pain. TECHNIQUE: Imaging Protocol: Axial computed tomography images with coronal and sagittal reformatted images were created and reviewed CONTRAST MATERIAL: Intravenous: Omnipaque 350 Contrast volume:100 ml Oral: None COMPARISON: CT CT ABDOMEN PELVIS WO from 05/12/2023 FINDINGS: CHEST: LUNGS: No infiltrates nor evidence of lung contusion or pleural effusion or pneumothorax. No lung masses.. MEDIASTINUM: No evidence of sternal fracture nor mediastinal hematoma. Visualized thyroid unremarkable.No incidental hilar nor mediastinal adenopathy. No axillary adenopathy. CARDIAC: Heart size is normal. There is no pericardial effusion.Diameter of the ascending thoracic aorta is enlarged at 3.9 cm. Otherwise intact with no evidence of dissection. The diameter of the mid thoracic arch and descending thoracic aorta are normal. OSSEOUS: There is a compression fracture of L1 vertebral body which is unchanged from CT scan of April 2023. No new fractures evident.. ABDOMEN: There is no ascites. No evidence of mesenteric nor bowel wall hematoma. LIVER: Intact. Normal size. No laceration or subcapsular hematoma. No lesions. No dilated intrahepatic ducts. GALLBLADDER/BILIARY: No obvious gallbladder pathology. CBD is not dilated. PANCREAS: No evidence of pancreatic mass nor dilatation of the pancreatic duct. SPLEEN: Spleen size is normal. There is no splenic laceration. There is a E well-defined 1.7 x 1.7 cm probable cyst in the anterior spleen. Better evident than on the prior noninfused study 2022. splenic and portal veins are patent. ADRENALS: There are no significant adrenal masses. KIDNEYS: No evidence of renal laceration or subcapsular hematomas. No significant focal findings in the left kidney there is a benign cyst in the inferior pole of the left kidney measuring 4 x 3.5 cm, unchanged from April 2023. Smaller benign cyst in the superior pole of the left kidney noted measuring up to 1.5 cm, also unchanged. These benign cysts do not require furt her workup. No ominous solid renal masses. No calculi. No hydronephrosis nor hydroureter.. ABDOMINAL AORTA: Abdominal aorta is intact and there is no evidence of aneurysm. Aortic bifurcation is intact as are the aortoiliac segments. LYMPH NODES: There is no retroperitoneal nor paraaortic adenopathy. ABDOMINAL WALL: No evidence of significant anterior abdominal wall nor inguinal hernia. There is a subcutaneous density in the midline pannus measuring 2.5 x 2.2 cm, slightly right of center. This is unchanged from April 2023. There is some overlying skin thickening. GI: There is no evidence of bowel obstruction. PELVIS: LYMPH NODES: There is no intrapelvic nor inguinal adenopathy. GI: No evidence of appendicitis.No evidence of sigmoid diverticulitis. URINARY BLADDER: There is a suprapubic catheter in place again noted. Urinary bladder is collapsed around the catheter. REPRODUCTIVE: Uterus is partially obscured by beam hardening artifact from right hip prosthesis. Appears unremarkable. No obvious abnormal adnexal masses identified and no free fluid. OSSEOUS: There is a right hip prosthesis again noted. L1 compression fractures unchanged from prior study. Multilevel facet arthropathy noted. IMPRESSION: 1. No acute trauma findings in the chest. Diameter of the thoracic aorta is slightly prominent measuring 3.9 cm. No dissection evident. 2. There is an L1 compression fracture which is not acute. It appears unchanged from CT scan of 05/12/2023. 3. No significant trauma sequelae in the abdomen and pelvis. 4. There is a 1.7 x 1.7 cm benign cyst in the anterior aspect of the spleen. Spleen size is normal. 5. There is a suprapubic catheter in the urinary bladder. The bladder is not distended. Lab Data Lab results reviewed: Yes I reviewed the patient's lab results. Labs: Laboratory Tests Range/Units 02/24/24 02/24/24 02/24/24 17:16 17:31 19:14 WBC (4.4-10.8) 10^3/uL 9.47 RBC (3.93-5.22) 10^6/uL 4.90 Hgb (11.2-15.7) g/dL 11.1 L Hct (36.0-46.0) % 38.7 MCV (80-95) fL 79 L MCH (27.0-33.0) pg 22.7 L MCHC (32.0-36.0) % 28.7 L RDW (11.7-14.6) % 17.8 H Plt Count (130-400) 10^3/uL 397 MPV (8.0-11.0) fL 9.8 Immature Gran % % 0.4 Neutrophils % % 77.1 Lymphocytes % % 12.6 Monocytes % % 8.4 Eosinophils % % 1.0 Basophils % % 0.5 Nucleated RBC % (0.0-0.3) % 0.0 Absolute Neutrophils (1.2-6.7) 10^3/uL 7.30 H Absolute Lymphocytes (1.2-3.4) 10^3/uL 1.19 L Absolute Monocytes (0.1-0.8) 10^3/uL 0.80 Absolute Eosinophils (0.0-0.7) 10^3/uL 0.09 Absolute Basophils (0.0-0.2) 10^3/uL 0.05 VBG Lactate (0.6-1.4) mmol/L 1.3 Sodium (136-145) mmol/L 136 Potassium (3.5-5.1) mmol/L 4.3 Chloride (98-107) mmol/L 102 Carbon Dioxide (21.0-32.0) mmol/L 26.0 Anion Gap (3-11) mmol/L 8.0 BUN (7-18) mg/dL 12 Creatinine (0.55-1.02) mg/dL 1.0 Est GFR (CKD-EPI 2020) (mL/min/1.73m2) 58.75 Glucose (74-106) mg/dL 266 H Calcium (8.5-10.1) mg/dL 9.6 Total Bilirubin (0.2-1.0) mg/dL 0.51 AST (15-37) U/L 17 ALT (14-59) U/L 17 Alkaline Phosphatase (46-116) U/L 78 Creatine Kinase (26-192) U/L 106 Troponin I High Sens (< or =60) ng/L < 50 < 50 NT-Pro-B Natriuret Pep (<300) pg/mL 1531 H Total Protein (6.4-8.2) g/dL 8.0 Albumin (3.4-5.0) g/dL 3.1 L Amylase (25-115) U/L 49 Lipase (16-77) U/L 120 H ABO/Rh A Positive Antibody Screen NEGATIVE Range/Units 02/24/24 20:07 WBC (4.4-10.8) 10^3/uL RBC (3.93-5.22) 10^6/uL Hgb (11.2-15.7) g/dL Hct (36.0-46.0) % MCV (80-95) fL MCH (27.0-33.0) pg MCHC (32.0-36.0) % RDW (11.7-14.6) % Plt Count (130-400) 10^3/uL MPV (8.0-11.0) fL Immature Gran % % Neutrophils % % Lymphocytes % % Monocytes % % Eosinophils % % Basophils % % Nucleated RBC % (0.0-0.3) % Absolute Neutrophils (1.2-6.7) 10^3/uL Absolute Lymphocytes (1.2-3.4) 10^3/uL Absolute Monocytes (0.1-0.8) 10^3/uL Absolute Eosinophils (0.0-0.7) 10^3/uL Absolute Basophils (0.0-0.2) 10^3/uL VBG Lactate (0.6-1.4) mmol/L Sodium (136-145) mmol/L Potassium (3.5-5.1) mmol/L Chloride (98-107) mmol/L Carbon Dioxide (21.0-32.0) mmol/L Anion Gap (3-11) mmol/L BUN (7-18) mg/dL Creatinine (0.55-1.02) mg/dL Est GFR (CKD-EPI 2020) (mL/min/1.73m2) Glucose (74-106) mg/dL Calcium (8.5-10.1) mg/dL Total Bilirubin (0.2-1.0) mg/dL AST (15-37) U/L ALT (14-59) U/L Alkaline Phosphatase (46-116) U/L Creatine Kinase (26-192) U/L Troponin I High Sens (< or =60) ng/L < 50 NT-Pro-B Natriuret Pep (<300) pg/mL Total Protein (6.4-8.2) g/dL Albumin (3.4-5.0) g/dL Amylase (25-115) U/L Lipase (16-77) U/L ABO/Rh Antibody Screen Quality:SDOH Health Related Social Needs: No Data to Display PFSH All Active Problems (Updated 02/24/24 @ 21:27 by KATHLEEN Servin) Atrial fibrillation with rapid ventricular response (Acute) Accident due to mechanical fall without injury (Acute) Diabetic hyperosmolar non-ketotic state (Acute) AMS (altered mental status) (Acute) Acute UTI (Acute) Acute hyperglycemia (Acute) Full code status (Acute) Advance care planning (Acute) Brain TIA (Acute) Vitamin B12 deficiency (Acute) CVA (cerebral vascular accident) (Chronic) Impaired instrumental activities of daily living (Acute) DNR (do not resuscitate) (Acute) Loneliness (Acute) Chronic kidney disease (CKD) (Chronic) Venous stasis dermatitis (Acute) Decreased activities of daily living (ADL) (Acute) Need for home health care (Acute) Nephrolithiasis (Chronic) Sacral decubitus ulcer, stage II (Acute) Wound of right lower extremity (Acute) Hyperglycemia (Acute) Trochanteric bursitis, right hip (Acute) Right ankle sprain (Acute) Hip pain, right (Acute) GI bleed (Acute) Fracture, lumbar vertebra, compression (Acute) PSVT (paroxysmal supraventricular tachycardia) (Acute) Urinary retention (Chronic 03/31/16) Poorly controlled diabetes mellitus (Chronic) Transient neurologic deficit (Acute) Fungal dermatitis (Acute) Atrial flutter (Acute) Vaginal bleeding, abnormal (Acute) Atrial fibrillation and flutter (Chronic) Diabetes mellitus type 2 in obese (Acute) Fracture of femoral neck, right (Acute) Retention, urine (Acute) Medical History (Updated 02/24/24 @ 21:27 by KATHLEEN Servin) Infestation by bed bug Hx of malignant melanoma GERD (gastroesophageal reflux disease) H/O menorrhagia Supraventricular tachycardia History of traumatic fracture of hip Unsteady gait Hard of hearing Vision changes Anemia 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 Palliative care encounter Pulmonary hypertension Multiple rib fractures involving four or more ribs Hypertension S/P right hip fracture TIA (transient ischemic attack) Hyperlipidemia Atrial fibrillation CHF (congestive heart failure) LVEF 50-55%, diastolic dysfunction Diabetes Cataracts, bilateral Surgical History History of bilateral cataract extraction History of suprapubic catheter Status post right hip replacement Family History Other Diabetes Heart disease Hyperlipidemia Hypertension Stroke Social History Smoking/Tobacco Use Status: Former Tobacco Use Smoking risk assessment performed?: Yes Alcohol Intake: never Drug use: Never Substance use type: does not use Household members: none Housing: apartment Do you feel safe at home: Yes Do you feel safe in your relationship?: Yes Additional Social history: Lives alone[address] Does not drive. Sign Out Sign Out Data: Sign Out Comment: Patient was seen with mechanical fall on thinners- no injury with myers-scan Serial trops negative Was in AF w RVR, was given IV dilt, passed ambulatory trial, returned to RVR while awaiting RCT. Remaining tachy in 150's, was given PO 120mg dilt at that time. Getting re-IV, 5mg IV lopressor, +/- PO doses after re-eval. Last updated by Cullen Hill PA at 02/24/24 22:56
[2024-02-24 17:29] LABS: Lactate 1.3 mmol/L (0.6-1.4)
[2024-02-24 17:31] LABS: Abs Immature Grans 0.04 10^3/uL (0.0-0.06); Absolute Basophil Count 0.05 10^3/uL (0.0-0.2); Absolute Eosinophil Count 0.09 10^3/uL (0.0-0.7); Absolute Lymphocyte Count 1.19 10^3/uL (1.2-3.4); Basophils % 0.5 %; HCT 38.7 % (36.0-46.0); HGB 11.1 g/dL (11.2-15.7); Immature Grans % 0.4 %; Lymphocytes % 12.6 %; MCH 22.7 pg (27.0-33.0); MCHC 28.7 % (32.0-36.0); MCV 79 fL (80-95); MPV 9.8 fL (8.0-11.0); Monocytes % 8.4 %; Neutrophils % 77.1 %; Platelet Count 397 10^3/uL (130-400); RDW 17.8 % (11.7-14.6); WBC 9.47 10^3/uL (4.4-10.8)
[2024-02-24 17:46] LABS: Amylase 49 U/L (25-115); Creatine Kinase 106 U/L (26-192)
[2024-02-24 17:54] LABS: ALT 17 U/L (14-59); AST 17 U/L (15-37); Albumin 3.1 g/dL (3.4-5.0); Alkaline Phosphatase 78 U/L (46-116); BUN 12 mg/dL (7-18); Bilirubin, Total 0.51 mg/dL (0.2-1.0); Chloride 102 mmol/L (98-107); Estimated GFR 58.75 (mL/min/1.73m2); Glucose 266 mg/dL (74-106); Lipase 120 U/L (16-77); NT-proBNP 1531 pg/mL (<300); Potassium 4.3 mmol/L (3.5-5.1); Sodium 136 mmol/L (136-145); Troponin I < 50 ng/L (< or =60)
[2024-02-24 18:02] LABS: Calcium 9.6 mg/dL (8.5-10.1)
[2024-02-24] MEDS: ACETAMINOPHEN 1,000 MG/100 ML BTL 400 MG IVPB (18:10)
[2024-02-24] MEDS: Normal Saline 500 ML 250 ML IV (18:11)
--- NOTE | 2024-02-24 18:49 | DI.CT_ITS ---
Exam(s) CT HEAD CERVICAL SPINE WO EXAM: CT HEAD CERVICAL SPINE WO CLINICAL HISTORY: fall at home, on thinners, head neck pain. TECHNIQUE: Imaging Protocol: Axial computed tomography images with coronal and sagittal reformatted images were created and reviewed COMPARISON: No exams were available for comparison FINDINGS: BRAIN: There are no skull fractures nor fluid in the visualized paranasal sinuses. There is no evidence of intracranial hemorrhage, mass effect, or shift of midline structures. There are no extra-axial fluid collections. The ventricles are not enlarged or shifted and there is no blo od within the ventricular system nor within the basal cisterns. CERVICAL SPINE: There is no evidence of fracture nor listhesis. No significant prevertebral soft tissue swelling. C1 arch and odontoid process appear unremarkable. Disc spaces are well maintained. Facet joints appear unremarkable. No obvious degenerative changes. There is no significant facet joint malalignment. However, there is an abnormal lucent area in the left side of the C 4 vertebral body and pedicle whic h appears possibly lytic, this measuring 11 mm wide by 9 mm AP by 7 mm craniocaudal. IMPRESSION: No acute intracranial findings on this noninfused CT scan of the brain. No evidence of acute cervical spine fracture, malalignment, nor acute compromise of the cervical spin al canal. Incidentally noted is an abnormal lucent area in the left side of C4 vertebral body measuring 11 x 9 x 7 mm. This may be lytic. RADIATION DOSE DELIVERED: 1,306.19mGy.cm Total DLP DATA REPOSITORY: All CT scans at this facility are submitted to the National Radiology Data Registry (NRDR) Dose Index Registry (DIR) with the [employer] ([employer]). RADIATION OPTIMIZATION: All CT scans at this facility use at least one of these dose optimization te chniques: automated exposure control; mA and/or kV adjustment per patient size (includes targeted exa ms where dose is matched to clinical indication); or iterative reconstruction.
--- NOTE | 2024-02-24 18:49 | DI.CT_ITS ---
Exam(s) CT THORACIC LUMBAR SPINE REC EXAM: CT THORACIC LUMBAR SPINE REC CLINICAL HISTORY: recons- trauma TECHNIQUE: COMPARISON: CT CT ABDOMEN PELVIS WO from 05/12/[address] CHEST/ABD/PEL W from 02/24/2024 FINDINGS: THORACIC SPINAL CANAL: No fractures in the thoracic vertebrae. No listhesis. No acute compromise of the thoracic spinal canal. No facet malalignment. LUMBOSACRAL SPINAL CANAL: There is a stable appearing compression fracture of L1 which is unchanged f rom prior CT scan of 05/04/2023. There are no other lumbar vertebral fractures. There is stable mil d anterolisthesis of L4 upon L5 again noted related to facet degenerative changes. There is no disc space narrowing at this level nor other levels. IMPRESSION: No acute fractures in the thoracic and lumbar spine. There is a stable appearing compression fractur e of L1 which is unchanged from 05/12/2023. Also stable mild anterolisthesis L4 upon L5. All of this patient's CT reports were called by myself to the ER provider 02/24/2024 7:40 p.m.
[2024-02-24] MEDS: Normal Saline - Diluent 50 ML VIAL IJ (19:25)
[2024-02-24 19:35] LABS: Troponin I < 50 ng/L (< or =60)
--- OUTSIDE RECORDS SUMMARY | 2024-02-24 19:37 | XMS_ITS | Continuity of Care Document ---
Author Organization [facility] Address [address] [place] [address] Care Team Providers Care Gaming Surveillance Observer Name Role Phone Ton [facility] Primary [facility] Physician Encounter [facility] Date(s): 11/24/23 - 11/26/[address] [phone] Encounter Diagnosis Hypovolemic shock(Discharge Diagnosis) - 11/24/23 Urinary tract infection(Discharge Diagnosis) - 11/25/23 Atrial fibrillation(Discharge Diagnosis) - 11/25/23 Urinary tract infection, site not specified(Final) - Hypovolemic shock(Final) - Systemic inflammatory response syndrome (SIRS) of non-infectious origin without acute organ dysfunction(Final) - Unspecified atrial fibrillation(Final) - Disorientation, unspecified(Final) - Type 2 diabetes mellitus without complications(Final) - Other fdc (current) drug therapy(Final) - 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) - dedicated 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 truck driver (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) use of anticoagulants(Final) - Encounter for screening for COVID-19(Final) - Presence of urogenital implants(Final) - Discharge Disposition: Home w/ Home Health Care Attending Physician: David Leung DO Admitting Physician: Lilibeth Peck Allergies, Adverse Reactions, Alerts Substance Reaction Severity Status traZODone 1 hallucinations Severe Active 1pt reports she was given trazodone prior to a surgery and experienced severe hallucinations Assessment and Plan Extracted from: Title:Discharge Note Author:Dutch Landa PA-C Date:11/26/23 Discharge Plan 1.??Urinary tract infection??N39.0 2.??Hypovolemic shock??R57.1 3.??Atrial fibrillation??I48.91 Orders: ciprofloxacin 500 mg oral tablet, 500 mg = 1 tab, Oral, every 12 hr, # 14 tab, 0 Refill(s), Pharmacy: [facility] #[id number], 87.18, kg, 11/25/23 3:41:00 EDT, Weight Dosing Diet Order, 11/25/23 0:34:00 EDT, Cardiac, Regular Texture/IDDSI7, Heart Healthy Discharge Diet Instruction, Diabetic Diet Discharge Patient, 11/26/23 10:29:00 EDT, Home with VNA Services- resume all home health services including SN, PT, and OT Follow Up With When Contact Information Ton [facility], Dean WANG Within 1 to 2 weeks [facility] [address] [facility] [address] [place] [address]- Additional Instructions: Addendum by David Leung DO on November 26, 2023 16:47:06 EDT Patient was seen and examined independently. Agree with the assessment and plan developed by Dutch Landa PAC.?? Extracted from: Title:ED Provider Note Author:Pawan Mcfarlane MD Date:11/25/23 1.??Urinary tract infection? ?N39.0 2.??Hypovolemic shock??R57.1 3.??Atrial fibrillation??I48.91 Orders: Blood Culture, Blood, Stat collect, ST - Stat, 11/24/23 20:27:00 EDT, Once, Nurse collect, Print Label Blood Culture, Blood, Stat collect, ST - Stat, 11/24/23 20:27:00 EDT, Once, Nurse collect, Print Label CV EKG ED, 11/24/23 20:08:00 EDT, Routine, Reason: ED - empiric, Stop date and time 11/24/23 20:08:00 EDT, ORD_SET_REQ_DT_RANGEMarlin's Internal Person Id Notify Provider of Vital Signs, 11/24/23 21:06:00 EDT, Notify provider of abnormal vital signs, Constant Indicator Urine Culture, Urine, Stat collect, ST - Stat, 11/24/23 23:07:00 EDT, Once, Nurse collect, Collected, 11/24/23 23:07:00 EDT, Print Label, [id number] Vital Signs, 11/24/23 21:06:00 EDT, Constant order, Obtain baseline vitals prior to beginning transfusion then vitals every 15 minutes during transfusion Extracted from: Title:H & P Author:Lilibeth Peck ate:11/25/23 1.??Urinary tract infection? ?N39.0 ??Urine -?3+ glucose??2+ blood??2+ leuk esterase??culture pending ?? Patient was started on ceftriaxone for UTI Monitor VS MIVF Suprapubic catheter changed ? 2.??Hypovolemic shock??R57.1 Given 1500 ml NS in ED BP on arrival?86/63; after fluids ~100S?? MAP > 65 ? Ordered: PSO Admit to Inpatient, Semi-Private Telemetry, Inpatient, David Leung DO, 11/25/23 0:15:00 EDT, 11/25/23 0:15:00 EDT, 11/25/23 0:15:00 EDT, 2 midnights or more but less than 96 hrs ?? 3.??Atrial fibrillation??I48.91 Chronic; stable On Xarelto ?? Orders: acetaminophen, 650 mg = 2 tab, Oral, Tab, every 6 hr, PRN pain, mild, First Dose: 11/25/23 0:34:00 EDT, Routine Mylanta, 15 mL, Oral, Susp, every 6 hr, PRN dyspepsia, First Dose: 11/25/23 0:34:00 EDT, Routine Lipitor, 20 mg = 2 tab, Oral, Tab, Daily, First Dose: 11/25/23 17:00:00 EDT, Routine GlucaGen, 1 mg = 1 EA, Intramuscular, Kit, As Directed, PRN low blood sugar, First Dose: 11/25/23 2:22:00 EDT, Routine Dextrose 50% intravenous solution, 12.5 g 25 mL, IV Push, Soln-IV, As Directed, PRN low blood sugar, First Dose: 11/25/23 2:22:00 EDT, Routine glucose 40% oral gel, 30 g = 75 mL, Oral, Gel, As Directed, PRN low blood sugar, First Dose: 11/25/23 2:22:00 EDT, Routine glucose 40% oral gel, 15 g = 37.5 mL, Oral, Gel, As Directed, PRN low blood sugar, First Dose: 11/25/23 2:22:00 EDT, Routine Dextrose 50% intravenous solution, 25 g 50 mL, IV Push, Soln-IV, As Directed, PRN low blood sugar, First Dose: 11/25/23 2:22:00 EDT, Routine Lantus, 30 units = 0.3 mL, Subcutaneous, Soln, Daily, First Dose: 11/25/23 9:00:00 EDT, Routine insulin lispro (HumaLog) correction- moderate, Moderate Scale, Subcutaneous, Soln, AC & bedtime, First Dose: 11/25/23 7:30:00 EDT lidocaine 1% injectable solution, 1 mg 0.1 mL, Intradermal, Soln, As Directed, PRN other (see comment), First Dose: 11/25/23 0:34:00 EDT, Routine LORazepam, 0.5 mg = 0.25 mL, IV Push, Soln, every 6 hr, PRN anxiety, First Dose: 11/25/23 0:34:00 EDT, Routine Toprol-XL 100 mg oral tablet, extended release, 300 mg = 3 tab, Oral, Tab-ER, Daily, First Dose: 11/25/23 9:00:00 EDT, Routine Narcan, 0.4 mg = 1 mL, IV Push, Soln, Once, PRN Opioid Overdose, First Dose: 11/25/23 0:34:00 EDT, Physician Stop, Routine ondansetron, 4 mg = 2 mL, IV Push, Soln, every 6 hr, PRN nausea/vomiting, First Dose: 11/25/23 0:34:00 EDT, Routine pantoprazole, 40 mg = 1 EA, IV Push, Powder-Inj, Daily, First Dose: 11/25/23 6:00:00 EDT, Routine polyethylene glycol 3350, 17 g = 1 packets, Oral, Powder-Recon, Daily, PRN constipation, First Dose: 11/25/23 0:34:00 EDT, Routine Xarelto, 20 mg = 1 tab, Oral, Tab, every evening, First Dose: 11/25/23 18:00:00 EDT, Routine Normal Saline Flush, 10 mL, IV Push, Soln, every 12 hr (samuel), First Dose: 11/25/23 9:00:00 EDT, Routine Sodium Chloride 0.9% 1,000 mL, Total Volume (mL): 1,000, 1,000 mL, Soln-IV, IV, 30 mL/hr, Start Date: 11/25/23 0:34:00 EDT, Populate Charting Weight From Order traMADol, 50 mg = 1 tab, Oral, Tab, every 4 hr, PRN pain, moderate, First Dose: 11/25/23 0:34:00 EDT, Routine Ambulate as Tolerated, 11/25/23 0:34:00 EDT, PRN Basic Metabolic Panel, Blood, Routine, 11/25/23 0:34:00 EDT, every morning, for 3 days, Lab Collect Blood Glucose Monitoring POC, 11/25/23 2:22:00 EDT, QID(ACHS), 11/25/23 7:30:00 EDT Cardiac Monitoring, 11/25/23 0:34:00 EDT, Telemetry CBC w/ Diff, Blood, Routine, 11/25/23 0:34:00 EDT, every morning, for 3 days, Lab Collect Diet Order, 11/25/23 0:34:00 EDT, Cardiac, Regular Texture/IDDSI7, Heart Healthy Magnesium Level, Blood, Routine, 11/25/23 0:34:00 EDT, every morning, for 3 days, Lab Collect Notify Provider of Vital Signs, 11/25/23 0:34:00 EDT, SpO2 < 92% on 2L O2 NC, T > 101.5, HR > 100, HR < 50, SBP greater than 160, SBP less than 90, DBP greater than 90, DBP less than 50, Resp Rate greater than 30, Resp Rate less than 8, Constant Indicator Nursing Task, 11/25/23 2:22:00 EDT, Constant order Nursing Task, 11/25/23 2:22:00 EDT, Constant order Oxygen Therapy, SpO2 goal 90% or greater, PRN, Lilibeth Peck Resuscitation Status, 11/25/23 0:34:00 EDT, Full Code Saline Lock Insert, 11/25/23 0:34:00 EDT, Once, Stop date 11/25/23 0:34:00 EDT Urine Culture, Urine, Routine collect, RT - Routine, 11/25/23 3:30:00 EDT, Once, Nurse collect, Collected, 11/25/23 3:30:00 EDT, Print Label, [id number] Vital Signs, 11/25/23 0:34:00 EDT, Constant order, every 4 hrs Weight, 11/25/23 0:34:00 EDT, every morning Functional Status 11/26/23 Lunch Percent 100 11/26/23 Breakfast Percent 100 11/25/23 Activity Status ADL Up to chair Positioning/Pressure Reducing Devices Pi llow 11/25/23 Personal Care Provided Gown change, Hair care, Shampoo, Shower 11/25/23 Living Environment No Living Environmen t Information Available Lives In Mobile home Lives With Child(josiah) 1 Living Situation Home with family car e, Home with home health Home Barriers None 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 2Result Comment: built in to the bathroom. Medications calcium (as carbonate)-vitamin D 600 mg-800 intl units oral tablet 2 tab, Oral, Daily, # 60 tab, 0 Refill(s) Start Date: 11/25/23 Status: Ordered ciprofloxacin 500 mg oral tablet 500 mg = 1 tab, Oral, every 12 hr, # 14 tab, 0 Refill(s), Pharmacy: [facility] #58, 87.18, kg, 11/25/23 3:41:00 EDT, Weight Dosing Start Date: 11/26/23 Stop Date: 12/03/23 Status: Ordered Farxiga 5 mg oral tablet 5 mg = 1 tab, Oral, Daily, # 90 tab, 0 Refill(s) Start Date: 11/25/23 Status: Ordered Lantus 100 units/mL subcutaneous solution 30 units =, Subcutaneous, every night at bedtime, # 10 mL, 0 Refill(s) Start Date: 11/25/23 Status: Ordered Lipitor 10 mg oral tablet 20 mg =, Oral, Daily, # 30 tab, 0 Refill(s) Start Date: 11/25/23 Status: Ordered metFORMIN 500 mg oral tablet 500 mg = 1 tab, Oral, BID, # 60 tab, 0 Refill(s) Start Date: 11/25/23 Status: Ordered NovoLOG 100 units/mL injectable solution 12 units =, Subcutaneous, Daily, 0 Refill(s) Start Date: 11/25/23 Status: Ordered NovoLOG FlexPen 100 units/mL injectable solution 6 units =, Subcutaneous, every evening, # 3 mL, 0 Refill(s) Start Date: 11/25/23 Status: Ordered PriLOSEC 20 mg =, Oral, Daily, 0 Refill(s) Start Date: 11/25/23 Status: Ordered Toprol-XL 100 mg oral tablet, extended release 300 mg = 3 tab, Oral, Daily, # 30 tab, 0 Refill(s) Start Date: 11/25/23 Status: Ordered Trulicity Pen 1.5 mg/0.5 mL subcutaneous solution 1.5 mg = 0.5 mL, Subcutaneous, every week, rotate injection sites, # 2 mL, 0 Refill(s) Start Date: 11/25/23 Status: Ordered Vitamin B-12 1000 mcg oral tablet 1,000 mcg = 1 tab, Oral, Daily, # 30 tab, 0 Refill(s) Start Date: 11/25/23 Status: Ordered Xarelto 20 mg oral tablet 20 mg = 1 tab, Oral, every evening, with evening meal, # 30 tab, 0 Refill(s) Start Date: 11/25/23 Status: Ordered Mental Status 11/25/23 Eye Opening Response Karlos Spontaneous ly Best Verbal Response [place] Oriented Best Motor Response [place] Obeys comman ds [place] Coma Score 15 Problem List Condition Confirmation Course Effective Dates Status Health St atus Informant Atrial fibrillation Confirmed Active Results Laboratory List Name Date Glucose POCT 11/26/23 Glucose POCT 11/26/23 .Manual Differential (NCTY) 11/26/23 Basic Metabolic Panel 11/26/23 CBC w/ Diff 11/26/23 Lactic Acid 11/26/23 Magnesium Level 11/26/23 Glucose Level 11/25/23 Glucose POCT 11/25/23 Basic Metabolic Panel 11/25/23 CBC w/ Diff 11/25/23 Magnesium Level 11/25/23 .Morphology (NCTY) 11/25/23 C-Reactive Protein (CRP) 11/25/23 Automated Diff 11/25/23 Lactic Acid 11/25/23 Urinalysis Microscopic 11/25/23 Urinalysis with Micro if Indicated and C ulture if Indicated 11/25/23 Lactic Acid 11/24/23 Urinalysis Microscopic 11/24/23 Urinalysis with Micro if Indicated and C ulture if Indicated 11/24/23 .Morphology (NCTY) 11/24/23 ABO/Rh 11/24/23 Antibody Screen Gel 11/24/23 CBC w/ Diff 11/24/23 Comprehensive Metabolic Panel 11/24/23 NT- Pro BNP 11/24/23 PT/ INR 11/24/23 Procalcitonin 11/24/23 Thyroid Stimulating Hormone (TSH) 11/24/23 Influenza A/B (ID NOW) 11/24/23 SARS-CoV-2 (COVID-19) RNA (ID Now) 4 Automated Diff 11/24/23 Most recent to oldest [Reference Range]: 1 2 3 WBC [5.0-10.0 x10^3/mcL] 12.5 x10^3/mcL *HI* (11/26/23 7:03 AM) 12.7 x10^3/mcL *HI* (11/25/23 7:09 AM) 13.0 x10^3/mcL *HI* (11/24/23 8:55 PM) RBC [4.1-5.3 x10^6/mcL] 3.7 x10^6/mcL *LOW* (11/26/23 7:03 AM) 3.6 x10^6/mcL *LOW* (11/25/23 7:09 AM) 4.2 x10^6/mcL (11/24/23 8:55 PM) Segs Man [40-75 %] 84 % *HI* (11/26/23 7:03 AM) Lymph Man [20-50 %] 7 % *LOW* (11/26/23 7:03 AM) Neutro Auto [40.0-75.0 %] 69.0 % (11/25/23 7:09 AM) 79.7 % *HI* (11/24/23 8:55 PM) Lymph Auto [20.0-50.0 %] 18.7 % *LOW* (11/25/23 7:09 AM) 10.4 % *LOW* (11/24/23 8:55 PM) Blaine Auto [2.0-15.0 %] 11.2 % (11/25/23 7:09 AM) 8.8 % (11/24/23 8:55 PM) Basophil Auto [0.0-1.0 %] 0.5 % (11/25/23 7:09 AM) 0.5 % (11/24/23 8:55 PM) Blaine Man [2-15 %] 7 % (11/26/23 7:03 AM) Eos Man [1-6 %] 0 % *LOW* (11/26/23 7:03 AM) Prothrombin Time [9.0-11.0 seconds] 12.0 seconds *HI* (11/24/23 8:55 PM) INR 1.2 1 *NA* (11/24/23 8:55 PM) BUN [7-18 mg/dL] 26 mg/dL *HI* (11/26/23 7:03 AM) 32 mg/dL *HI* (11/25/23 7:09 AM) 35 mg/dL *HI* (11/24/23 8:55 PM) Glucose POC [74-106 mg/dL] 299 mg/dL *HI* (11/26/23 11:32 AM) 146 mg/dL *HI* (11/26/23 7:21 AM) 357 mg/dL *CRIT* (11/25/23 7:52 PM) UA Color Pale Yellow (11/25/23 3:30 AM) Yellow (11/24/23 11:07 PM) UA WBC [0-3] >100 *ABN* (11/25/23 3:30 AM) 50-100 *ABN* (11/24/23 11:07 PM) ABO/Rh Type A POS *Unknown* (11/24/23 8:55 PM) Glucose Level [74-106 mg/dL] 145 mg/dL *HI* (11/26/23 7:03 AM) 397 mg/dL *HI* (11/25/23 8:20 PM) 197 mg/dL *HI* (11/25/23 7:09 AM) Lymph, Atyp Man 1 % *NA* (11/26/23 7:03 AM) Acanthocyte Small (11/26/23 7:03 AM) Moderate (11/25/23 7:09 AM) Potassium Level [3.5-5.1 mmol/L] 4.8 mmol/L (11/26/23 7:03 AM) 4.7 mmol/L (11/25/23 7:09 AM) 5.4 mmol/L *HI* (11/24/23 8:55 PM) MCV [80.0-96.0 fL] 80.9 fL (11/26/23 7:03 AM) 80.4 fL (11/25/23 7:09 AM) 81.0 fL (11/24/23 8:55 PM) UA Urobilinogen Normal (11/25/23 3:30 AM) Normal (11/24/23 11:07 PM) RBC Morph Abnormal (11/26/23 7:03 AM) Abnormal (11/25/23 7:09 AM) Abnormal (11/24/23 8:55 PM) UA Bili [Negative] Negative (11/25/23 3:30 AM) Negative (11/24/23 11:07 PM) CRP [<=10.0 mg/L] 22.9 mg/L 2 *HI* (11/25/23 7:09 AM) UA Ketones Trace *ABN* (11/25/23 3:30 AM) Negative (11/24/23 11:07 PM) AST [15-37 unit/L] 31 unit/L (11/24/23 8:55 PM) ALT [14-59 unit/L] 49 unit/L (11/24/23 8:55 PM) MCHC [31.0-35.0 g/dL] 29.7 g/dL *LOW* (11/26/23 7:03 AM) 29.6 g/dL *LOW* (11/25/23 7:09 AM) 29.2 g/dL *LOW* (11/24/23 8:55 PM) Sodium Level [136-145 mmol/L] 135 mmol/L *LOW* (11/26/23 7:03 AM) 136 mmol/L 3 (11/25/23 7:09 AM) 132 mmol/L *LOW* (11/24/23 8:55 PM) UA RBC [0-2] 10-25 (11/25/23 3:30 AM) 25-50 (11/24/23 11:07 PM) UA Leuk Est 2+ *ABN* (11/25/23 3:30 AM) 2+ *ABN* (11/24/23 11:07 PM) UA Nitrite Negative (11/25/23 3:30 AM) Negative (11/24/23 11:07 PM) UA Glucose [Negative] 3+ *ABN* (11/25/23 3:30 AM) 3+ *ABN* (11/24/23 11:07 PM) Hct [37.0-47.0 %] 30.0 % *LOW* (11/26/23 7:03 AM) 29.1 % *LOW* (11/25/23 7:09 AM) 33.6 % *LOW* (11/24/23 8:55 PM) Microcyte Small (11/26/23 7:03 AM) Small (11/25/23 7:09 AM) UA Bacteria Moderate /HPF *ABN* (11/25/23 3:30 AM) Many /HPF *ABN* (11/24/23 11:07 PM) Schistocytes Rare (11/26/23 7:03 AM) Rare (11/25/23 7:09 AM) Rare (11/24/23 8:55 PM) Hypochromia Rare (11/26/23 7:03 AM) Small (11/25/23 7:09 AM) Calcium Level [8.5-10.1 mg/dL] 8.7 mg/dL (11/26/23 7:03 AM) 8.4 mg/dL *LOW* (11/25/23 7:09 AM) 9.0 mg/dL (11/24/23 8:55 PM) Albumin Level [3.4-5.0 g/dL] 2.8 g/dL *LOW* (11/24/23 8:55 PM) Protein Total [6.4-8.2 g/dL] 7.9 g/dL (11/24/23 8:55 PM) UA Protein 2+ *ABN* (11/25/23 3:30 AM) 1+ *ABN* (11/24/23 11:07 PM) MCH [26.0-32.0 pg] 24.0 pg *LOW* (11/26/23 7:03 AM) 23.8 pg *LOW* (11/25/23 7:09 AM) 23.6 pg *LOW* (11/24/23 8:55 PM) Magnesium Level [1.8-2.4 mg/dL] 2.1 mg/dL (11/26/23 7:03 AM) 1.6 mg/dL *LOW* (11/25/23 7:09 AM) Neutro Absolute 8.8 x10^3/mcL *NA* (11/25/23 7:09 AM) 10.4 x10^3/mcL *NA* (11/24/23 8:55 PM) Bilirubin Total [0.2-1.0 mg/dL] 0.4 mg/dL (11/24/23 8:55 PM) Hgb [12.0-16.0 g/dL] 8.9 g/dL *LOW* (11/26/23 7:03 AM) 8.6 g/dL *LOW* (11/25/23 7:09 AM) 9.8 g/dL *LOW* (11/24/23 8:55 PM) Alk Phos [46-146 unit/L] 84 unit/L (11/24/23 8:55 PM) UA Blood 2+ *ABN* (11/25/23 3:30 AM) 2+ *ABN* (11/24/23 11:07 PM) UA Mucous None Seen /HPF (11/25/23 3:30 AM) None Seen /HPF (11/24/23 11:07 PM) Band Man [0-5 %] 0 % (11/26/23 7:03 AM) Teardrop Cells Rare (11/26/23 7:03 AM) Rare (11/24/23 8:55 PM) UA Spec Grav 1.025 *NA* (11/25/23 3:30 AM) 1.010 *NA* (11/24/23 11:07 PM) Polychrom Rare (11/26/23 7:03 AM) Rare (11/25/23 7:09 AM) Platelets [130-450 x10^3/mcL] 672 x10^3/mcL *HI* (11/26/23 7:03 AM) 671 x10^3/mcL *HI* (11/25/23 7:09 AM) 766 x10^3/mcL 4 *CRIT* (11/24/23 8:55 PM) CO2 [21-32 mmol/L] 23 mmol/L (11/26/23 7:03 AM) 22 mmol/L (11/25/23 7:09 AM) 23 mmol/L (11/24/23 8:55 PM) Lactic Acid Lvl [0.7-2.0 mmol/L] 0.9 mmol/L (11/26/23 7:03 AM) 2.2 mmol/L 5 *CRIT* (11/25/23 4:40 AM) 2.1 mmol/L 6 *CRIT* (11/24/23 11:43 PM) UA Squam Epithelial [None Seen] None Seen (11/25/23 3:30 AM) None Seen (11/24/23 11:07 PM) TSH [0.358-3.740 mcIntlUnit/mL] 2.310 mcIntlUnit/mL (11/24/23 8:55 PM) Macrocyte Rare (11/26/23 7:03 AM) Rare (11/25/23 7:09 AM) UA pH 6.0 *NA* (11/25/23 3:30 AM) 6.0 *NA* (11/24/23 11:07 PM) eGFR Non-AA [>=60] 50 *LOW* (11/26/23 7:03 AM) 36 *LOW* (11/25/23 7:09 AM) 29 *LOW* (11/24/23 8:55 PM) eGFR AA [>=60] 50 *LOW* (11/26/23 7:03 AM) 36 *LOW* (11/25/23 7:09 AM) 29 *LOW* (11/24/23 8:55 PM) UA Appear Cloudy *ABN* (11/25/23 3:30 AM) Cloudy *ABN* (11/24/23 11:07 PM) NT-proBNP [0-450 pg/mL] 2378 pg/mL *HI* (11/24/23 8:55 PM) Chloride Level [98-107 mmol/L] 104 mmol/L (11/26/23 7:03 AM) 103 mmol/L (11/25/23 7:09 AM) 100 mmol/L (11/24/23 8:55 PM) Procalcitonin [0.00-0.50 ng/mL] <0.15 ng/mL (11/24/23 8:55 PM) RDW-CV [11.5-14.5 %] 18.6 % *HI* (11/26/23 7:03 AM) 18.6 % *HI* (11/25/23 7:09 AM) 18.5 % *HI* (11/24/23 8:55 PM) Sidney Cells Rare (11/26/23 7:03 AM) Rare (11/24/23 8:55 PM) Ovalocytes Small (11/26/23 7:03 AM) Small (11/25/23 7:09 AM) Small (11/24/23 8:55 PM) Vacuoles Noted (11/26/23 7:03 AM) Imm Gran Auto [0.0-0.9 %] 0.4 % (11/25/23 7:09 AM) 0.4 % (11/24/23 8:55 PM) Plt Giant Rare (11/26/23 7:03 AM) Slide Review Man Diff (11/26/23 7:03 AM) Morph Only (11/25/23 7:09 AM) Morph Only (11/24/23 8:55 PM) UA Culture Ind?. Indicated (11/25/23 3:30 AM) Indicated (11/24/23 11:07 PM) Abs Neut Man 10.5 x10^3/mcL *NA* (11/26/23 7:03 AM) Anisocyte Large (11/26/23 7:03 AM) Moderate (11/25/23 7:09 AM) Small (11/24/23 8:55 PM) Influenza A -IDNOW Not Detected (11/24/23 8:25 PM) Influenza B -IDNOW Not Detected (11/24/23 8:25 PM) Creatinine Level [0.55-1.02 mg/dL] 1.14 mg/dL *HI* (11/26/23 7:03 AM) 1.52 mg/dL *HI* (11/25/23 7:09 AM) 1.79 mg/dL *HI* (11/24/23 8:55 PM) Antibody Screen Gel Negative ABSC (11/24/23 8:55 PM) SARS-CoV-2 (COVID-19) RNA (ID Now) [Not Detected] Not Detected (11/24/23 8:25 PM) Plt Estimation [Adequate] Increased *ABN* (11/24/23 8:55 PM) Baso Man [0-1 %] 1 % (11/26/23 7:03 AM) Eos, Auto [1.0-6.0 %] 0.2 % *LOW* (11/25/23 7:09 AM) 0.2 % *LOW* (11/24/23 8:55 PM) UA Yeast [None Seen] Few *ABN* (11/25/23 3:30 AM) Many *ABN* (11/24/23 11:07 PM) 1Interpretive Data: INR 2-2.5 Prophylaxis: Short term DVT INR 2-3 Prophylaxis: hip and femur surgery Therapy: DVT (3 mos) PE (3-6 mos) TIA (fdc) Atr Fib (fdc) Syst. 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 3Result Comment: Result verified by repeat analysis 4Result Comment: Called to and verbally verified by Jessie Diego at 11/24/2023 21:27:39 EDT. 5Result Comment: Called to and verbally verified by Esperanza Mccurdy at 11/25/2023 04:48:59 EDT. 6Result Comment: Called to and verbally verified by Montez Fleming at 11/24/2023 23:54:26 EDT. Orders for Microbiology Reports Name Date Urine Culture 11/25/23 Urine Culture 11/24/23 Blood Culture 11/24/23 Blood Culture 11/24/23 Microbiology Reports TEST:Urine Culture STATUS:Auth (Verified) BODY SITE: SOURCE:Urine COLLECTED DATE/TIME:11/25/23 3:30 AM FINAL REPORT >100,000 cfu/ml Enterobacter cloacae complex ORGANISM:Enterobacter cloacae complex Susceptibilty: Enterobacter cloacae complex Tested Drug THOMAS Dilution THOMAS Urine Interp retation Trimethoprim/Sulfa <=0.5/9.5 S Tobramycin <=2 S Tigecycline <=2 S Tetracycline <=4 S Piperacillin/Tazobactam <=8 S Nitrofurantoin <=32 S Minocycline <=4 S Meropenem <=1 S Levofloxacin <=0.5 S Imipenem <=1 S Gentamicin <=2 S Ertapenem <=0.5 S Ciprofloxacin <=0.25 S Cefuroxime <=4 S Ceftriaxone <=1 S Ceftazidime <=1 S Cefoxitin >16 R Cefepime <=2 S Cefazolin >16 R Aztreonam <=4 S Ampicillin/Sulbactam 8/4 R* Ampicillin 16 R* Amoxicillin/Clavulanate >16/8 R TEST:Urine Culture STATUS:Auth (Verified) BODY SITE: SOURCE:Urine COLLECTED DATE/TIME:11/24/23 11:07 PM FINAL REPORT >100,000 cfu/ml Enterobacter cloacae complex ORGANISM:Enterobacter cloacae complex Susceptibilty: Enterobacter cloacae complex Tested Drug THOMAS Dilution THOMAS Urine Interp retation Trimethoprim/Sulfa <=0.5/9.5 S Tobramycin <=2 S Tigecycline <=2 S Tetracycline <=4 S Piperacillin/Tazobactam <=8 S Nitrofurantoin <=32 S Minocycline <=4 S Meropenem <=1 S Levofloxacin <=0.5 S Imipenem <=1 S Gentamicin <=2 S Ertapenem <=0.5 S Ciprofloxacin <=0.25 S Cefuroxime <=4 S Ceftriaxone <=1 S Ceftazidime <=1 S Cefoxitin >16 R Cefepime <=2 S Cefazolin >16 R Aztreonam <=4 S Ampicillin/Sulbactam <=4/2 R* Ampicillin >16 R Amoxicillin/Clavulanate >16/8 R TEST:Blood Culture STATUS:Order in Progress BODY SITE: SOURCE:Blood COLLECTED DATE/TIME:11/24/23 9:25 PM PRELIMINARY REPORT No growth at 24 hours. TEST:Blood Culture STATUS:Order in Progress BODY SITE: SOURCE:Blood COLLECTED DATE/TIME:11/24/23 8:55 PM PRELIMINARY REPORT No growth at 24 hours. Vital Signs Most recent to oldest [Reference Range]: 1 2 3 Temperature Temporal Artery [36-38 Deg C] 36.3 Deg C (11/26/23 11:31 AM) 36.6 Deg C (11/26/23 7:20 AM) 36.5 Deg C (11/26/23 4:27 AM) Peripheral Pulse Rate [60-100 bpm] 94 bpm (11/26/23 11:31 AM) 103 bpm *HI* (11/26/23 7:20 AM) 86 bpm (11/26/23 4:27 AM) Heart Rate Monitored [60-100 bpm] 84 bpm (11/25/23 2:10 AM) 78 bpm (11/25/23 2:05 AM) 84 bpm (11/25/23 1:55 AM) Respiratory Rate [12-24 br/min] 16 br/min (11/26/23 11:31 AM) 16 br/min (11/26/23 7:20 AM) 20 br/min (11/26/23 4:27 AM) Blood Pressure [90-140/60-90 mmHg] 112/64mmHg (11/26/23 11:31 AM) 119/66mmHg (11/26/23 7:20 AM) 128/76mmHg (11/26/23 4:27 AM) Mean Arterial Pressure, Cuff [65-140 mmHg] 72 mmHg (11/25/23 2:10 AM) 72 mmHg (11/25/23 2:05 AM) 78 mmHg (11/25/23 1:55 AM) Mean Arterial Pressure Cuff 79 mmHg (11/26/23 11:31 AM) 82 mmHg (11/26/23 7:20 AM) 84 mmHg (11/26/23 12:43 AM) Weight 86.25 kg (11/25/23 7:55 AM) 87.18 kg (11/25/23 3:41 AM) Weight Measured (lbs) 190.148 lb (11/25/23 7:55 AM) Weight Dosing 87.18 kg (11/25/23 3:41 AM) Weight Estimated 87.18 kg (11/25/23 3:41 AM) 86.18 kg (11/24/23 8:21 PM) BSA Estimated 0 m2 (11/25/23 3:41 AM) Body Mass Index Estimated 30.56 kg/m2 (11/25/23 3:41 AM) 30.67 kg/m2 (11/24/23 8:21 PM) Height/Length Estimated 168.91 cm (11/25/23 3:41 AM) 167.64 cm (11/24/23 8:21 PM) Social History Social History Type Response Tobacco Never tobacco user T obacco Use:. Sex Hospital Discharge Instructions Patient Education 11/26/2023 08:37:38 Urinary Tract Infection, Adult Urinary Tract Infection, Adult A urinary tract infection (UTI) is an infection of any part of the urinary tract. The urinary tractincludes the kidneys, ureters, bladder, and urethra. These organs make, store, and get rid of urinein the body. An upper UTI affects the ureters and kidneys. A lower UTI affects the bladder and urethra. What are the causes? Most urinary tract infections are caused by bacteria in your genital area around your urethra, where urine leaves your body. These bacteria grow and cause inflammation of your urinary tract. What increases the risk? You are more likely to develop this condition if: ??? You have a urinary catheter that stays in place. ??? You are not able to control when you urinate or have a bowel movement (incontinence). ??? You are female and you: ??? Use a spermicide or diaphragm for control. ??? Have low estrogen levels. ??? Are . ??? You have certain genes that increase your risk. ??? You are sexually active. ??? You take antibiotic medicines. ??? You have a condition that causes your flow of urine to slow down, such as: ??? An enlarged prostate, if you are male. ??? Blockage in your urethra. ??? A kidney stone. ??? A nerve condition that affects your bladder control (neurogenic bladder). ??? Not getting enough to drink, or not urinating often. ??? You have certain medical conditions, such as: ??? Diabetes. ??? A weak disease-fighting system (immunesystem). ??? Sickle cell disease. ??? Gout. ??? Spinal cord injury. What are the signs or symptoms? Symptoms of this condition include: ??? Needing to urinate right away (urgency). ??? Frequent urination. This may include small amounts of urine each time you urinate. ??? Pain or burning with urination. ??? Blood in the urine. ??? Urine that smells bad or unusual. ??? Trouble urinating. ??? Cloudy urine. ??? Vaginal discharge, if you are female. ??? Pain in the abdomen or the lower back. You may also have: ??? Vomiting or a decreased appetite. ??? Confusion. ??? Irritability or tiredness. ??? A fever or chills. ??? Diarrhea. The first symptom in older adults may be confusion. In some cases, they may not have any symptoms until the infection has worsened. How is this diagnosed? This condition is diagnosed based on your medical history and a physical exam. You may also have other tests, including: ??? Urine tests. ??? Blood tests. ??? Tests for STIs (sexually transmitted infections). If you have had more than one UTI, a cystoscopy or imaging studies may be done to determine the cause of the infections. How is this treated? Treatment for this condition includes: ??? Antibiotic medicine. ??? Kmqk-azo-kjffgys medicines to treat discomfort. ??? Drinking enough water to stay hydrated. If you have frequent infections or have other conditions such as a kidney stone, you may need to see a health care provider who specializes in the urinary tract (urologist). In rare cases, urinary tract infections can cause sepsis. Sepsis is a life- threatening condition that occurs when the body responds to an infection. Sepsis is treated in the hospital with IV antibiotics, fluids, and other medicines. Follow these instructions at home: Medicines ??? Take qadt-rmz-ouqrxyp and prescription medicines only as told by your health care provider. ??? If you were prescribed an antibiotic medicine, take it as told by your health care provider. Donot stop using the antibiotic even if you start to feel better. General instructions ??? Make sure you: ??? Empty your bladder often and completely. Do not hold urine for long periods of time. ??? Empty your bladder after sex. ??? Wipe from front to back after urinating or having a bowel movement if you are female. Use each tissue only one time when you wipe. ??? Drink enough fluid to keep your urine pale yellow. ??? Keep all follow-up visits. This is important. Contact a health care provider if: ??? Your symptoms do not get better after 1???2 days. ??? Your symptoms go away and then return. Get help right away if: ??? You have severe pain in your back or your lower abdomen. ??? You have a fever or chills. ??? You have nausea or vomiting. Summary ??? A urinary tract infection (UTI) is an infection of any part of the urinary tract, which includes the kidneys, ureters, bladder, and urethra. ??? Most urinary tract infections are caused by bacteria in your genital area. ??? Treatment for this condition often includes antibiotic medicines. ??? If you were prescribed an antibiotic medicine, take it as told by your health care provider. Donot stop using the antibiotic even if you start to feel better. ??? Keep all follow-up visits. This is important. This information is not intended to replace advice given to you by your health care provider. Make sure you discuss any questions you have with your health care provider. Document Revised: 01/18/2021 Document Reviewed: 01/18/2021 [employer] Patient Education ?? 2022 [employer]. 11/26/2023 08:37:26 Suprapubic Catheter Home Guide Suprapubic Catheter Home Guide A suprapubic catheter is a flexible tube that is used to drain urine from the bladder into a collection bag outside the body. The catheter is inserted into the bladder through a small opening in the lower abdomen, above the pubic bone (suprapubic area) and a few inches below your belly button (navel). A tiny balloon filled with germ-free (sterile) water helps to keep the catheter in place. The collection bag must be emptied at least once a day and cleaned at least every other day. The collection bag can be put beside your bed at night and attached to your leg during the day. You may have a large collection bag to use at night and a smaller one to use during the day. Your suprapubic catheter may need to be changed every 4???6 weeks, or as often as recommended by your health care provider. Healing of the tract where the catheter is placed can take 6 weeks to 6 months. During that time, your health care provider may change your catheter. Once the tract is well healed, you or a caregiver will change your suprapubic catheter at home. What are the risks? This catheter is safe to use. However, problems can occur, including: ??? Blocked urine flow. This can occur if the catheter stops working, or if you have a blood clot in your bladder or in the catheter. ??? Irritation of the skin around the catheter. ??? Infection. This can happen if bacteria gets into your bladder. Supplies needed: ??? Two pairs of sterile gloves. ??? Paper towels. ??? Catheter. ??? Two syringes. ??? Sterile water. ??? Sterile cleaning solution. ??? Lubricant. ??? Collection bags. How to change the catheter 1. Drink plenty of fluids during the hours before you change the catheter. 2. Wash your hands with soap and water. If soap and water are not available, use hand coater slate. 3. Draw up sterile water into a syringe to have ready to fill the new catheter balloon. The amount will depend on the size of the balloon. 4. Have all of your supplies ready and close to you on a paper towel. 5. Lie on your back, sitting slightly upright so that you can see the catheter and opening. 6. Put on sterile gloves. 7. Clean the skin around the catheter opening using the sterile cleaning solution. 8. Remove the water from the balloon in the catheter using a syringe. 9. Slowly remove the catheter. If the catheter seems stuck, or if you have difficulty removing it: ??? Do not pull on it. ??? Call your health care provider right away. 10. Place the old catheter on a paper towel to discard later. 11. Take off the used gloves, and put on a new pair. 12. Put lubricant on the end of the new catheter that will go into your bladder. 13. Clean the skin around the catheter opening using the sterile cleaning solution. 14. Gently slide the catheter through the opening in your abdomen and into the tract that leads to your bladder. 15. Wait for some urine to start flowing through the catheter. 16. When urine starts to flow through the catheter, attach the collection bag to the end of the catheter. Make sure the connection is tight. 17. Use a syringe to fill the catheter balloon with sterile water. Fill to the amount directed by your health care provider. 18. Remove the gloves and wash your hands with soap and water. How to care for the skin around the catheter Follow your health care provider's instructions on caring for your skin. ??? Use a clean washcloth and soapy water to clean the skin around your catheter every day. Pat thearea dry with a clean paper towel. ??? Do not pull on the catheter. ??? Do not use ointment or lotion on this area, unless told by your health care provider. ??? Check the skin around the catheter every day for signs of infection. Check for: ??? Redness, swelling, or pain. ??? Fluid or blood. ??? Warmth. ??? Pus or a bad smell. How to empty and clean the collection bag Empty the large collection bag every 8 hours. Empty the small collection bag when it is about ??? full. Clean the collection bag every 2???3 days, or as often as told by your health care provider. Todo this: 1. Wash your hands with soap and water. If soap and water are not available, use hand coater slate. 2. Disconnect the bag from the catheter and immediately attach a new bag to the catheter. 3. Hold the used bag over the toilet or another container. 4. Turn the valve (spigot) at the bottom of the bag to empty the urine. Empty the used bag completely. ??? Do not touch the opening of the spigot. ??? Do not let the opening touch the toilet or container. 5. Close the spigot tightly when the bag is empty. 6. Clean the used bag in one of the following methods: ??? According to the oil separator's instructions. ??? As told by your health care provider. 7. Let the bag dry completely. Put it in a clean plastic bag before storing it. General tips ??? Always wash your hands before and after caring for your catheter and collection bag. Use a mild, fragrance-free soap. If soap and water are not available, use hand coater slate. ??? Clean the outside of the catheter with soap and water as often as told by your health care provider. ??? Always make sure there are no twists or kinks in the catheter tube. ??? Always make sure there are no leaks in the catheter or collection bag. ??? Always wear the leg bag below your knee. ??? Make sure the overnight drainage bag is always lower than the level of your bladder, but do notlet it touch the floor. Before you go to sleep, hang the bag inside a wastebasket that is covered by a clean plastic bag. ??? Drink enough fluid to keep your urine pale yellow. ??? Do not take baths, swim, or use a hot tub until your health care provider approves. Ask your health care provider if you may take showers. Contact a marina care provider if: ??? You leak urine. ??? You have redness, swelling, or pain around your catheter. ??? You have fluid or blood coming from your catheter opening. ??? Your catheter opening feels warm to the touch. ??? You have pus or a bad smell coming from your catheter opening. ??? You have a fever or chills. ??? Your urine flow slows down. ??? Your urine becomes cloudy or smelly. Get help right away if: ??? Your catheter comes out. ??? You have: ??? Nausea. ??? Back pain. ??? Difficulty changing your catheter. ??? Blood in your urine. ??? No urine flow for 1 hour. Summary ??? A suprapubic catheter is a flexible tube that is used to drain urine from the bladder into a collection bag outside the body. ??? Your suprapubic catheter may need to be changed every 4???6 weeks, or as recommended by your health care provider. ??? Follow instructions on how to change the catheter and how to empty and clean the collection bag. ??? Always wash your hands before and after caring for your catheter and collection bag. Drink enough fluid to keep your urine pale yellow. ??? Get help right away if you have difficulty changing your catheter or if there is blood in your urine. This information is not intended to replace advice given to you by your health care provider. Make sure you discuss any questions you have with your health care provider. Document Revised: 11/11/2022 Document Reviewed: 07/13/2019 [employer] Patient Education ?? 2022 [employer] Follow Up Care 11/24/2023 19:59:50 With:[facility] Address: [facility] [address] [place], [place] [id number]- When:1 to 2 weeks Discharge instructions * Violeta Muñoz RN: PERFORM Event Display: Discharge Instructions Authored Date: [id number] DHAVAL YEE :1950 Age:73 years Sex:Female Visit Date:11/24/2023 Primary Care Physician: [facility] Discharge Instructions We would like to thank you for allowing us to assist you with your healthcare needs. The following includes patient education materials and information regarding your injury/illness. Your Next Steps Discharge Orders Discharge Diet Instruction, Diabetic Diet Follow Up Appointments Follow Up with??[facility] When:??Within 1 to 2 weeks Where: [facility] [address] [place] [address]- The Following Services Have Been Arranged for You Occupational Therapy, Physical Therapy Anticipated ADL Needs - None Special Serv & Comm Res, Anticipated - None Special Services and Community Resources - Other: [facility] Medications What How Much When Instructions Next Dose New ciprofloxacin (ciprofloxacin 500 mg oral tablet) 1 tab Oral (given by mouth) Every 12 hours Duration: 7 Days Pickup at [facility] Changed insulin aspart (NovoLOG 100 units/ mL injectable solution) 12 Units Subcutaneous (under the skin) Every day Changed insulin aspart (NovoLOG FlexPen 100 units/ mL injectable solution) 6 Units Subcutaneous (under the skin) Every evening Changed insulin glargine (Lantus 100 units/ mL subcutaneous solution) 30 Units Subcutaneous (under the skin) Every night at bedtime Unchanged atorvastatin (Lipitor 10 mg oral tablet) 20 Milligrams Oral (given by mouth) Every day Unchanged calcium-vitamin D (calcium (as carbonate)-vitamin D 600 mg-800 intl units oral tablet) 2 tab Oral (given by mouth) Every day Unchanged cyanocobalamin (Vitamin B-12 1000 mcg oral tablet) 1 tab Oral (given by mouth) Every day Unchanged dapagliflozin (Farxiga 5 mg oral tablet) 1 tab Oral (given by mouth) Every day Unchanged dulaglutide (Trulicity Pen 1.5 mg/ 0.5 mL subcutaneous solution) 0.5 Milliliters Subcutaneous (under the skin) Every week rotate injection sites ?? Unchanged metFORMIN (metFORMIN 500 mg oral tablet) 1 tab Oral (given by mouth) 2 times a day Unchanged metoprolol (Toprol-XL 100 mg oral tablet, extended release) 3 tab Oral (given by mouth) Every day Unchanged omeprazole (PriLOSEC) 20 Milligrams Oral (given by mouth) Every day Unchanged rivaroxaban (Xarelto 20 mg oral tablet) 1 tab Oral (given by mouth) Every evening with evening meal ?? Pharmacy Information [id number]: [address], [place] [id number] [phone] ?? What How Much When Comments Stop Taking dilTIAZem (dilTIAZem 300 mg/ 24 hours oral tablet, extended release) 1 tab Oral (given by mouth) Every day Stop Taking furosemide (Lasix 20 mg oral tablet) 1 tab Oral (given by mouth) Every day Stop Taking lisinopril (lisinopril 10 mg oral tablet) 1 tab Oral (given by mouth) Every day Stop Taking magnesium gluconate (magnesium gluconate 500 mg oral tablet) 1 tab Oral (given by mouth) 3 times a day Duration: 10 Days Your Summary Your Care Team Admitting Physician - Lilibeth Peck Attending Physician - David Leung DO Primary Care Physician - Ton [facility] Your Diagnosis Urinary tract infection Hypovolemic shock Atrial fibrillation Education Materials Urinary Tract Infection, Adult A urinary tract infection (UTI) is an infection of any part of the urinary tract. The urinary tractincludes the kidneys, ureters, bladder, and urethra. These organs make, store, and get rid of urinein the body. An upper UTI affects the ureters and kidneys. A lower UTI affects the bladder and urethra. What are the causes? Most urinary tract infections are caused by bacteria in your genital area around your urethra, where urine leaves your body. These bacteria grow and cause inflammation of your urinary tract. What increases the risk? You are more likely to develop this condition if: ? You have a urinary catheter that stays in place. ? You are not able to control when you urinate or have a bowel movement (incontinence). ? You are female and you: ? Use a spermicide or diaphragm for control. ? Have low estrogen levels. ? Are . ? You have certain genes that increase your risk. ? You are sexually active. ? You take antibiotic medicines. ? You have a condition that causes your flow of urine to slow down, such as: ? An enlarged prostate, if you are male. ? Blockage in your urethra. ? A kidney stone. ? A nerve condition that affects your bladder control (neurogenic bladder). ? Not getting enough to drink, or not urinating often. ? You have certain medical conditions, such as: ? Diabetes. ? A weak disease-fighting system (immunesystem). ? Sickle cell disease. ? Gout. ? Spinal cord injury. What are the signs or symptoms? Symptoms of this condition include: ? Needing to urinate right away (urgency). ? Frequent urination. This may include small amounts of urine each time you urinate. ? Pain or burning with urination. ? Blood in the urine. ? Urine that smells bad or unusual. ? Trouble urinating. ? Cloudy urine. ? Vaginal discharge, if you are female. ? Pain in the abdomen or the lower back. You may also have: ? Vomiting or a decreased appetite. ? Confusion. ? Irritability or tiredness. ? A fever or chills. ? Diarrhea. The first symptom in older adults may be confusion. In some cases, they may not have any symptoms until the infection has worsened. How is this diagnosed? This condition is diagnosed based on your medical history and a physical exam. You may also have other tests, including: ? Urine tests. ? Blood tests. ? Tests for STIs (sexually transmitted infections). If you have had more than one UTI, a cystoscopy or imaging studies may be done to determine the cause of the infections. How is this treated? Treatment for this condition includes: ? Antibiotic medicine. ? Hrba-eyg-sdppmmc medicines to treat discomfort. ? Drinking enough water to stay hydrated. If you have frequent infections or have other conditions such as a kidney stone, you may need to see a health care provider who specializes in the urinary tract (urologist). In rare cases, urinary tract infections can cause sepsis. Sepsis is a life- threatening condition that occurs when the body responds to an infection. Sepsis is treated in the hospital with IV antibiotics, fluids, and other medicines. Follow these instructions at home: Medicines ? Take aaib-uve-vqkwcwj and prescription medicines only as told by your health care provider. ? If you were prescribed an antibiotic medicine, take it as told by your health care provider. Do notstop using the antibiotic even if you start to feel better. General instructions ? Make sure you: ? Empty your bladder often and completely. Do not hold urine for long periods of time. ? Empty your bladder after sex. ? Wipe from front to back after urinating or having a bowel movement if you are female. Use each tissue only one time when you wipe. ? Drink enough fluid to keep your urine pale yellow. ? Keep all follow-up visits. This is important. Contact a health care provider if: ? Your symptoms do not get better after 1???2 days. ? Your symptoms go away and then return. Get help right away if: ? You have severe pain in your back or your lower abdomen. ? You have a fever or chills. ? You have nausea or vomiting. Summary ? A urinary tract infection (UTI) is an infection of any part of the urinary tract, which includes the kidneys, ureters, bladder, and urethra. ? Most urinary tract infections are caused by bacteria in your genital area. ? Treatment for this condition often includes antibiotic medicines. ? If you were prescribed an antibiotic medicine, take it as told by your health care provider. Do notstop using the antibiotic even if you start to feel better. ? Keep all follow-up visits. This is important. This information is not intended to replace advice given to you by your health care provider. Make sure you discuss any questions you have with your health care provider. Document Revised: 01/18/2021 Document Reviewed: 01/18/2021 [employer] Patient Education ?? 2022 [employer]. Suprapubic Catheter Home Guide A suprapubic catheter is a flexible tube that is used to drain urine from the bladder into a collection bag outside the body. The catheter is inserted into the bladder through a small opening in the lower abdomen, above the pubic bone (suprapubic area) and a few inches below your belly button (navel). A tiny balloon filled with germ-free (sterile) water helps to keep the catheter in place. The collection bag must be emptied at least once a day and cleaned at least every other day. The collection bag can be put beside your bed at night and attached to your leg during the day. You may have a large collection bag to use at night and a smaller one to use during the day. Your suprapubic catheter may need to be changed every 4???6 weeks, or as often as recommended by your health care provider. Healing of the tract where the catheter is placed can take 6 weeks to 6 months. During that time, your health care provider may change your catheter. Once the tract is well healed, you or a caregiver will change your suprapubic catheter at home. What are the risks? This catheter is safe to use. However, problems can occur, including: ? Blocked urine flow. This can occur if the catheter stops working, or if you have a blood clot in your bladder or in the catheter. ? Irritation of the skin around the catheter. ? Infection. This can happen if bacteria gets into your bladder. Supplies needed: ? Two pairs of sterile gloves. ? Paper towels. ? Catheter. ? Two syringes. ? Sterile water. ? Sterile cleaning solution. ? Lubricant. ? Collection bags. How to change the catheter 1.?? Drink plenty of fluids during the hours before you change the catheter. 2.?? Wash your hands with soap and water. If soap and water are not available, use hand coater slate. 3.?? Draw up sterile water into a syringe to have ready to fill the new catheter balloon. The amount will depend on the size of the balloon. 4.?? Have all of your supplies ready and close to you on a paper towel. 5.?? Lie on your back, sitting slightly upright so that you can see the catheter and opening. 6.?? Put on sterile gloves. 7.?? Clean the skin around the catheter opening using the sterile cleaning solution. 8.?? Remove the water from the balloon in the catheter using a syringe. 9.?? Slowly remove the catheter. If the catheter seems stuck, or if you have difficulty removing it: ? Do not pull on it. ? Call your health care provider right away. 10.?? Place the old catheter on a paper towel to discard later. 11.?? Take off the used gloves, and put on a new pair. 12.?? Put lubricant on the end of the new catheter that will go into your bladder. 13.?? Clean the skin around the catheter opening using the sterile cleaning solution. 14.?? Gently slide the catheter through the opening in your abdomen and into the tract that leads to yourbladder. 15.?? Wait for some urine to start flowing through the catheter. 16.?? When urine starts to flow through the catheter, attach the collection bag to the end of the catheter. Make sure the connection is tight. 17.?? Use a syringe to fill the catheter balloon with sterile water. Fill to the amount directed by your health care provider. 18.?? Remove the gloves and wash your hands with soap and water. How to care for the skin around the catheter Follow your health care provider's instructions on caring for your skin. ? Use a clean washcloth and soapy water to clean the skin around your catheter every day. Pat the area dry with a clean paper towel. ? Do not pull on the catheter. ? Do not use ointment or lotion on this area, unless told by your health care provider. ? Check the skin around the catheter every day for signs of infection. Check for: ? Redness, swelling, or pain. ? Fluid or blood. ? Warmth. ? Pus or a bad smell. How to empty and clean the collection bag Empty the large collection bag every 8 hours. Empty the small collection bag when it is about ??? full. Clean the collection bag every 2???3 days, or as often as told by your health care provider. Todo this: 1.?? Wash your hands with soap and water. If soap and water are not available, use hand coater slate. 2.?? Disconnect the bag from the catheter and immediately attach a new bag to the catheter. 3.?? Hold the used bag over the toilet or another container. 4.?? Turn the valve (spigot) at the bottom of the bag to empty the urine. Empty the used bag completely. ? Do not touch the opening of the spigot. ? Do not let the opening touch the toilet or container. 5.?? Close the spigot tightly when the bag is empty. 6.?? Clean the used bag in one of the following methods: ? According to the oil separator's instructions. ? As told by your health care provider. 7.?? Let the bag dry completely. Put it in a clean plastic bag before storing it. General tips ? Always wash your hands before and after caring for your catheter and collection bag. Use a mild, fragrance-free soap. If soap and water are not available, use hand coater slate. ? Clean the outside of the catheter with soap and water as often as told by your health care provider. ? Always make sure there are no twists or kinks in the catheter tube. ? Always make sure there are no leaks in the catheter or collection bag. ? Always wear the leg bag below your knee. ? Make sure the overnight drainage bag is always lower than the level of your bladder, but do not letit touch the floor. Before you go to sleep, hang the bag inside a wastebasket that is covered by a clean plastic bag. ? Drink enough fluid to keep your urine pale yellow. ? Do not take baths, swim, or use a hot tub until your health care provider approves. Ask your healthcare provider if you may take showers. Contact a marina care provider if: ? You leak urine. ? You have redness, swelling, or pain around your catheter. ? You have fluid or blood coming from your catheter opening. ? Your catheter opening feels warm to the touch. ? You have pus or a bad smell coming from your catheter opening. ? You have a fever or chills. ? Your urine flow slows down. ? Your urine becomes cloudy or smelly. Get help right away if: ? Your catheter comes out. ? You have: ? Nausea. ? Back pain. ? Difficulty changing your catheter. ? Blood in your urine. ? No urine flow for 1 hour. Summary ? A suprapubic catheter is a flexible tube that is used to drain urine from the bladder into a collection bag outside the body. ? Your suprapubic catheter may need to be changed every 4???6 weeks, or as recommended by your healthcare provider. ? Follow instructions on how to change the catheter and how to empty and clean the collection bag. ? Always wash your hands before and after caring for your catheter and collection bag. Drink enough fluid to keep your urine pale yellow. ? Get help right away if you have difficulty changing your catheter or if there is blood in your urine. This information is not intended to replace advice given to you by your health care provider. Make sure you discuss any questions you have with your health care provider. Document Revised: 11/11/2022 Document Reviewed: 07/13/2019 Elsevier Patient Education ?? 2022 [employer] Patient/Associate Professor Of Geography Signature Patient Name:DHAVAL YEE I have received this information and my questions have been answered. Patient/Associate Professor Of Geography Name: Patient/Associate Professor Of Geography Signature: Relationship to Patient: Witness Name/Signature: Date: Electronically Signed on: 11/26/2023 12:00 EDTSigned by:PRIMITIVO SARAH study * Event Display: Telemetry Strips Please click on link to view image. * Event Display: Telemetry Strips Please click on link to view image. * Event Display: Telemetry Strips Please click on link to view image. Pharmacology Progress note * Colleen Richardson: PERFORM Event Display: Pharmacy Progress Note Authored Date: [id number] Pharmacy Progress Note done by Colleen Richardson verified with patient interview, call to [facility] and pt had her DC papers with new med list from recent [facility]. pt appears be good historian She was aware of multiple med changes from her last hospitalization. niko encarnacion Electronically Signed on 11/25/2023 11:53 EDT Colleen Richardson Respiratory therapy Hospital Progress note * Lindsey Gan: MODIFY, PERFORM Event Display: Respiratory Therapy Progress Note Authored Date: [id number] ??DHAVAL YEE 73 Years MEASURED Weight: 87.18 kg (11/25/23 03:41:00) DOSING Weight Dosin.18 kg (11/25/23 03:41:00) Respiratory Shift Summary Breath Sounds: Clear/Diminished in bases Shift Treatments: None Shift Events: 55- Pt a/o sitting up in bed this AM. Pt remains on 2 L/min d/t uncontrolled HR overnight. Pt denies SOB/cough this morning and wants to get OOB to the chair. Pt placed on RA, WCTM. 0740- Recheck RA SpO2, 98%. Pt sitting in chair @ this time, no SOB noted. Respiratory Goals/Plan of Care: Maintain RA SpO2, no further respiratory needs. Respiratory Protocol??Aerosol Therapy Assessment and Scoring Home Medication Routine: Lung History (0) No Lung History and Non-Smoker Breath Sounds (1) Clear to slightly diminished or crackles in bases Respiratory Rate (0) Less than or equal to 18 Modified Kadi Scale or Observed Dyspnea (0) None Oxygen Therapy (0) Room air, at baseline home O2, post-op, or CHF Home Respiratory Medications (0) None Inhaler Use Assessment ? Clinically Stable? Yes? Can take a slow deep breath on command? Yes? Can perform a 3 second breath hold? Yes Respiratory total Score: 1 Respiratory Guidelines 0-2 pts - No Therapy indicated Electronically Signed on 11/25/2023 08:24 EDT Lindsey Gan * Denise Morales: PERFORM Event Display: Respiratory Therapy Progress Note Authored Date: [id number] ??DHAVAL YEE 73 Years MEASURED Weight: 87.18 kg (11/25/23 03:41:00) DOSING Weight Dosin.18 kg (11/25/23 03:41:00) Respiratory Shift Summary Breath Sounds: CTA Shift Treatments: None Shift Events: On Oxygen at 2 lpm nc Respiratory Goals/Plan of Care: ABG???s: Inital _??Settings: End of Shift _Settings: Respirtory Treatment or Medication Changes: Respiratory Protocol??Aerosol Therapy Assessment and Scoring Home Medication Routine: Lung History (0) No Lung History and Non-Smoker Breath Sounds (0) Clear in all michel Respiratory Rate (1)??19-25 Modified Kadi Scale or Observed Dyspnea (0) None Oxygen Therapy (1) 1-2 L/min Home Respiratory Medications (0) None Inhaler Use Assessment ? Clinically Stable? Yes? Can take a slow deep breath on command? Yes? Can perform a 3 second breath hold? Yes Respiratory total Score: 2 Respiratory Guidelines 0-2 pts - No Therapy indicated Electronically Signed on 11/25/2023 05:27 EDT Denise Morales Physician Emergency department Note * Pawan Mcfarlane MD: PERFORM Event Display: ED Note Physician Authored Date: [id number] DHAVAL YEE :1950 Age:73 years Sex:Female Visit Date:11/24/2023 Primary Care Physician: Ton MORRISON, Dean WANG Basic Information Time Seen: Pawan Mcfarlane MD / 11/24/2023 20:15 Chief Complaint BIBA from home with C/O weakness, N/V/D, incontinence. Reports recent admission at [facility] for blood sugar and heart issues. History Of Present Illness: Patient presents emergency department with a chief complaint of confusion. ??She recently was discharged from [facility] for an extended??hospital admission of 17 days. ??Patient states this was secondary to complications related to her diabetes.?? She is limited historian. ?? She denies any cough, shortness of breath, chest pain, abdominal pain??or??pain of the lower extremities or open wounds or ulcers. ?? Normally ambulates with the assistance of a walker and now cannot get up. Review of Systems: CONST: Negative for fever, body aches and chills. ?? HENT: Negative for neck pain/stiffness, headache, congestion, sore throat, swelling. ?? EYES: Negative for discharge/pain or vision changes. ?? RESP: Negative for cough/hemoptysis and shortness of breath. ?? CV: Negative chest pain, difficulty breathing, palpitations. ?? ABD: Negative pain, nausea, vomiting. ?? : suprpubic cathter long dwelling in place.? MUSC: Negative for muscle aches, edema. ?? SKIN: Negative rash, lesions/sores. ?? NEURO: Negative headache, dizziness, weakness. Physical Exam Vitals & Measurements T:??35.9?C ??(Temporal Artery)?? HR:??89??(Peripheral)?? RR:??20?? BP:??94/63?? SpO2:??97%?? HT:??168.91??cm?? WT:??87.18??kg?? WT:??87.18??kg??(Estimated)?? BMI:??30.56?? Pain Score:??6?? O2 Flow Rate:??2?? O2 Therapy:??Nasal cannula?? Gen: Awake/confused NAD ?? HEENT: Pale conjunctiva? Neck: Supple, full range of motion, no observable masses, No meningeal sign. ?? Lungs: No Respiratory distress. ?? CV: Irregularly irregular, no edema. ?? Abdomen: Soft, nondistended, No rebound tenderness. ?? MSK: No joint swelling, no redness. ?? Skin: No rashes, petechiae, lesions. Normal color per patient. ?? Neuro:?? Grossly intact, no lateralizing deficits ?? Psych: confused Medical Decision Making: Patient with SIRS possibly sepsis from a urinary??source however she has no fevers no chills??and??minimal elevation of her white count. ??That said she does have an elevation of her lactate of over 3.?? Initial fluid bolus??improved the patient markedly. ??Lactate went from 3-2 and her perfusion improved and her mental status improved.?? She was started on??2 g of Rocephin for suspected urinary source of infection??and her suprapubic catheter was??exchanged.?? The??urinary catheter was obstructed and not properly draining. ??Upon changing the catheter??fluid flowed freely again. ?? She was presented to the hospitalist service with a diagnosis of??SIRS and urinary tract infection. Critical Care Time Spent Total critical care time: Approximately 36 minutes Due to a high probability of clinically significant, life threatening deterioration, the patient required my highest level of preparedness to intervene emergently and I personally spent this criticalcare time directly and personally managing the patient. This critical care time included obtaining a history; examining the patient; pulse oximetry; ordering and review of studies; arranging urgent treatment with development of a management plan; evaluation of patient's response to treatment; frequent reassessment; and, discussions with other providers. This critical care time was performed to assess and manage the high probability of imminent, life-threatening deterioration that could result in multi-organ failure. It was exclusive of separately billable procedures and treating other patients and teaching time. Please see MDM section and the rest of the note for further information on patient assessment and treatment. Procedure No Qualifying Data Reexamination/Reevaluation Patient contacted EMS because she was having difficulty ambulating.?? She was just released from [facility] after 17-day admission. ??She says related to??difficulty regulating blood sugar. ?? Denies hematemesis she denies red blood per rectum??or black stool however patient is obviously pale, hypotensive, bradycardic??and will not lethargic she is slow to respond to questions.?? Unknown baseline will attempt to contact family. ?? Will evaluate for sepsis versus severe anemia. Assessment/Plan 1.??Urinary tract infection??N39.0 2.??Hypovolemic shock??R57.1 3.??Atrial fibrillation??I48.91 Orders: Blood Culture, Blood, Stat collect, ST - Stat, 11/24/23 20:27:00 EDT, Once, Nurse collect, Print Label Blood Culture, Blood, Stat collect, ST - Stat, 11/24/23 20:27:00 EDT, Once, Nurse collect, Print Label CV EKG ED, 11/24/23 20:08:00 EDT, Routine, Reason: ED - empiric, Stop date and time 11/24/23 20:08:00 EDT, [email or web address]'s Internal Person Id Notify Provider of Vital Signs, 11/24/23 21:06:00 EDT, Notify provider of abnormal vital signs, Constant Indicator Urine Culture, Urine, Stat collect, ST - Stat, 11/24/23 23:07:00 EDT, Once, Nurse collect, Collected, 11/24/23 23:07:00 EDT, Print Label, [id number] Vital Signs, 11/24/23 21:06:00 EDT, Constant order, Obtain baseline vitals prior to beginning transfusion then vitals every 15 minutes during transfusion Medication Reconciliation Unchanged atorvastatin (Lipitor 10 mg oral tablet)20 Milligrams Oral (given by mouth) every day. ?? cyanocobalamin (Vitamin B-12 1000 mcg oral tablet)1 tab Oral (given by mouth) every day. ?? insulin aspart (NovoLOG 100 units/mL injectable solution)12 Units Subcutaneous (under the skin) 2 times a day (before meals). ?? insulin glargine (Lantus 100 units/mL subcutaneous solution)30 Units Subcutaneous (under the skin) every day. ?? magnesium gluconate (magnesium gluconate 500 mg oral tablet)1 tab Oral (given by mouth) 3 times a day for 10 Days. ?? metFORMIN (metFORMIN 500 mg oral tablet)1 tab Oral (given by mouth) 2 times a day. ?? metoprolol (Toprol-XL 100 mg oral tablet, extended release)3 tab Oral (given by mouth) every day. ?? omeprazole (PriLOSEC)20 Milligrams Oral (given by mouth) every day. ?? rivaroxaban (Xarelto 20 mg oral tablet)1 tab Oral (given by mouth) every evening. with evening meal. Problem List/Past Medical History Ongoing No qualifying data Historical No qualifying data Medication Administration Given 0.9% NaCl bolus, 1 L, Medication Bolus NS bolus, 500 mL, Hydration Bolus pantoprazole, 40 mg, IV Push Rocephin, IV Piggyback Allergies traZODone??(hallucinations) Social History Electronic Cigarette/Vaping Electronic Cigarette Use: Never. Tobacco Never tobacco user Tobacco Use:. Lab Results CBC and Differential?? LATEST RESULTS?? WBC?? 11/25/23 07:09?? 12.7 ??High?? RBC?? 11/25/23 07:09?? 3.6 ??Low?? Hgb?? 11/25/23 07:09?? 8.6 ??Low?? Hct?? 11/25/23 07:09?? 29.1 ??Low?? MCV?? 11/25/23 07:09?? 80.4?? MCH?? 11/25/23 07:09?? 23.8 ??Low?? MCHC?? 11/25/23 07:09?? 29.6 ??Low?? RDW-CV?? 11/25/23 07:09?? 18.6 ??High?? Platelets?? 11/25/23 07:09?? 671 ??High?? Neutro Auto?? 11/25/23 07:09?? 69.0?? Lymph Auto?? 11/25/23 07:09?? 18.7 ??Low?? Blaine Auto?? 11/25/23 07:09?? 11.2?? Eos, Auto?? 11/25/23 07:09?? 0.2 ??Low?? Basophil Auto?? 11/25/23 07:09?? 0.5?? Imm Gran Auto?? 11/25/23 07:09?? 0.4?? Neutro Absolute?? 11/25/23 07:09?? 8.8? Routine Chemistry?? LATEST RESULTS?? Lactic Acid Lvl?? 11/25/23 04:40?? 2.2 ??Critical?? Glucose POC?? 11/25/23 07:26?? 179 ??High? UA Macroscopic?? LATEST RESULTS?? UA Color?? 11/25/23 03:30?? Pale Yellow?? UA Appear?? 11/25/23 03:30?? Cloudy Abnormal?? UA Glucose?? 11/25/23 03:30?? 3+ Abnormal?? UA Bili?? 11/25/23 03:30?? Negative?? UA Ketones?? 11/25/23 03:30?? Trace Abnormal?? UA Spec Grav?? 11/25/23 03:30?? 1.025?? UA Blood?? 11/25/23 03:30?? 2+ Abnormal?? UA pH?? 11/25/23 03:30?? 6.0?? UA Protein?? 11/25/23 03:30?? 2+ Abnormal?? UA Urobilinogen?? 11/25/23 03:30?? Normal?? UA Nitrite?? 11/25/23 03:30?? Negative?? UA Leuk Est?? 11/25/23 03:30?? 2+ Abnormal?? UA Culture Ind?.?? 11/25/23 03:30?? Indicated? UA Microscopic?? LATEST RESULTS?? UA WBC?? 11/25/23 03:30?? >100 Abnormal?? UA RBC?? 11/25/23 03:30?? 10-25?? UA Squam Epithelial?? 11/25/23 03:30?? None Seen?? UA Yeast?? 11/25/23 03:30?? Few Abnormal?? UA Mucous?? 11/25/23 03:30?? None Seen?? UA Bacteria?? 11/25/23 03:30?? Moderate Abnormal? Electronically Signed on 11/25/2023 07:36 EDT Pawan Mcfarlane MD History and physical note * [facility] PERFORM Event Display: History and Physical Authored Date: [id number] NAKIA DHAVAL :1950 Age:73 years Sex:Female Visit Date:11/24/2023 Primary Care Physician: Dean Wilson Chief Complaint BIBA from home with C/O weakness, N/V/D, incontinence. Reports recent admission at [facility] for blood sugar and heart issues. History of Present Illness This 73-year-old female patient??who presented to the [facility] ED??for evaluation of confusion.?? Patient was at [facility] for 17 days recently??discharged??for??treatment for herdiabetes.?? She arrived here pale, hypotensive,?she has suprapubic catheter.?? She was found to have a UTI.?? The catheter was changed.?? 2 g Rocephin IV given??chest x-ray unremarkable.? Labs in the ED WBC 13.0 hemoglobin 9.8??sodium 32??potassium 5.4 lactic??3.3 and at??decreased to 2.1??patient's proBNP 2378 ?? Urine -?3+ glucose??2+ blood??2+ leuk esterase??culture pending ?? Patient was started on ceftriaxone for UTI Chest xray no acute findings. ?? Patient was given 1500 mL of normal saline.?? Patient's blood pressure improved.?? Patient is less confused. ?Patient is admitted to the medical floor for further??testing and treatment. ?? Patient is a full code. Review of Systems per HPI?? Physical Exam Vitals & Measurements T:??36.3?C ??(Temporal Artery)?? TMIN:??36.0?C ??(Temporal Artery)?? TMAX:??36.3?C ??(Temporal Artery)?? HR:??105??(Peripheral)?? RR:??18?? BP:??108/59?? SpO2:??94%?? HT:??168.91??cm?? WT:??87.18??kg?? WT:??87.18??kg??(Estimated)?? BMI:??30.56?? Pain Score:??6?? O2 Flow Rate:??2?? O2 Therapy:??Nasal cannula?? Vital signs and nursing notes reviewed ?? CONSTITUTIONAL: _well appearing in no acute distress SKIN: _Warm, dry, and intact without rash EYES: _extraocular movements are grossly intact, clear conjunctiva HENT: _Normocephalic, atraumatic, moist mucus membranes NECK: _no obvious swelling, normal range of motion PULMONARY: _normal chest rise and fall, no respiratory distress or stridor CARDIOVASCULAR: _regular rate, distal extremities are warm and well perfused GASTROINTESTINAL: _nondistended GENITOURINARY: _deferred NEUROLOGIC: _normal speech, moves all extremities with equal strength and coordination MUSCULOSKELETAL: _no gross deformities, atraumatic PSYCHIATRIC: _normal mood and affect ? Assessment/Plan 1.??Urinary tract infection??N39.0 ??Urine -?3+ glucose??2+ blood??2+ leuk esterase??culture pending ?? Patient was started on ceftriaxone for UTI Monitor VS MIVF Suprapubic catheter changed ?? 2.??Hypovolemic shock??R57.1 Given 1500 ml NS in ED BP on arrival?86/63; after fluids ~100S?? MAP > 65 ?? Ordered: PSO Admit to Inpatient, Semi-Private Telemetry, Inpatient, David Leung DO, 11/25/23 0:15:00 EDT, 11/25/23 0:15:00 EDT, 11/25/23 0:15:00 EDT, 2 midnights or more but less than 96 hrs ?? 3.??Atrial fibrillation??I48.91 Chronic; stable On Xarelto ?? Orders: acetaminophen, 650 mg = 2 tab, Oral, Tab, every 6 hr, PRN pain, mild, First Dose: 11/25/23 0:34:00 EDT, Routine Mylanta, 15 mL, Oral, Susp, every 6 hr, PRN dyspepsia, First Dose: 11/25/23 0:34:00 EDT, Routine Lipitor, 20 mg = 2 tab, Oral, Tab, Daily, First Dose: 11/25/23 17:00:00 EDT, Routine GlucaGen, 1 mg = 1 EA, Intramuscular, Kit, As Directed, PRN low blood sugar, First Dose: 11/25/23 2:22:00 EDT, Routine Dextrose 50% intravenous solution, 12.5 g 25 mL, IV Push, Soln-IV, As Directed, PRN low blood sugar, First Dose: 11/25/23 2:22:00 EDT, Routine glucose 40% oral gel, 30 g = 75 mL, Oral, Gel, As Directed, PRN low blood sugar, First Dose: 11/25/23 2:22:00 EDT, Routine glucose 40% oral gel, 15 g = 37.5 mL, Oral, Gel, As Directed, PRN low blood sugar, First Dose: 11/25/23 2:22:00 EDT, Routine Dextrose 50% intravenous solution, 25 g 50 mL, IV Push, Soln-IV, As Directed, PRN low blood sugar, First Dose: 11/25/23 2:22:00 EDT, Routine Lantus, 30 units = 0.3 mL, Subcutaneous, Soln, Daily, First Dose: 11/25/23 9:00:00 EDT, Routine insulin lispro (HumaLog) correction- moderate, Moderate Scale, Subcutaneous, Soln, AC & bedtime, First Dose: 11/25/23 7:30:00 EDT lidocaine 1% injectable solution, 1 mg 0.1 mL, Intradermal, Soln, As Directed, PRN other (see comment), First Dose: 11/25/23 0:34:00 EDT, Routine LORazepam, 0.5 mg = 0.25 mL, IV Push, Soln, every 6 hr, PRN anxiety, First Dose: 11/25/23 0:34:00 EDT, Routine Toprol-XL 100 mg oral tablet, extended release, 300 mg = 3 tab, Oral, Tab-ER, Daily, First Dose: 11/25/23 9:00:00 EDT, Routine Narcan, 0.4 mg = 1 mL, IV Push, Soln, Once, PRN Opioid Overdose, First Dose: 11/25/23 0:34:00 EDT, Physician Stop, Routine ondansetron, 4 mg = 2 mL, IV Push, Soln, every 6 hr, PRN nausea/vomiting, First Dose: 11/25/23 0:34:00 EDT, Routine pantoprazole, 40 mg = 1 EA, IV Push, Powder-Inj, Daily, First Dose: 11/25/23 6:00:00 EDT, Routine polyethylene glycol 3350, 17 g = 1 packets, Oral, Powder-Recon, Daily, PRN constipation, First Dose: 11/25/23 0:34:00 EDT, Routine Xarelto, 20 mg = 1 tab, Oral, Tab, every evening, First Dose: 11/25/23 18:00:00 EDT, Routine Normal Saline Flush, 10 mL, IV Push, Soln, every 12 hr (samuel), First Dose: 11/25/23 9:00:00 EDT, Routine Sodium Chloride 0.9% 1,000 mL, Total Volume (mL): 1,000, 1,000 mL, Soln-IV, IV, 30 mL/hr, Start Date: 11/25/23 0:34:00 EDT, Populate Charting Weight From Order traMADol, 50 mg = 1 tab, Oral, Tab, every 4 hr, PRN pain, moderate, First Dose: 11/25/23 0:34:00 EDT, Routine Ambulate as Tolerated, 11/25/23 0:34:00 EDT, PRN Basic Metabolic Panel, Blood, Routine, 11/25/23 0:34:00 EDT, every morning, for 3 days, Lab Collect Blood Glucose Monitoring POC, 11/25/23 2:22:00 EDT, QID([facility]), 11/25/23 7:30:00 EDT Cardiac Monitoring, 11/25/23 0:34:00 EDT, Telemetry CBC w/ Diff, Blood, Routine, 11/25/23 0:34:00 EDT, every morning, for 3 days, Lab Collect Diet Order, 11/25/23 0:34:00 EDT, Cardiac, Regular Texture/[id number], Heart Healthy Magnesium Level, Blood, Routine, 11/25/23 0:34:00 EDT, every morning, for 3 days, Lab Collect Notify Provider of Vital Signs, 11/25/23 0:34:00 EDT, SpO2 < 92% on 2L O2 NC, T > 101.5, HR > 100, HR < 50, SBP greater than 160, SBP less than 90, DBP greater than 90, DBP less than 50, Resp Rate greater than 30, Resp Rate less than 8, Constant Indicator Nursing Task, 11/25/23 2:22:00 EDT, Constant order Nursing Task, 11/25/23 2:22:00 EDT, Constant order Oxygen Therapy, SpO2 goal 90% or greater, PRN, Lilibeth Peck Resuscitation Status, 11/25/23 0:34:00 EDT, Full Code Saline Lock Insert, 11/25/23 0:34:00 EDT, Once, Stop date 11/25/23 0:34:00 EDT Urine Culture, Urine, Routine collect, RT - Routine, 11/25/23 3:30:00 EDT, Once, Nurse collect, Collected, 11/25/23 3:30:00 EDT, Print Label, [id number] Vital Signs, 11/25/23 0:34:00 EDT, Constant order, every 4 hrs Weight, 11/25/23 0:34:00 EDT, every morning Problem List/Past Medical History Ongoing No qualifying data Historical No qualifying data Medications Inpatient acetaminophen, 650 mg= 2 tab, Oral, every 6 hr, PRN Dextrose 50% intravenous solution, 12.5 g= 25 mL, IV Push, As Directed, PRN Dextrose 50% intravenous solution, 25 g= 50 mL, IV Push, As Directed, PRN GlucaGen, 1 mg= 1 EA, Intramuscular, As Directed, PRN glucose 40% oral gel, 15 g= 37.5 mL, Oral, As Directed, PRN glucose 40% oral gel, 30 g= 75 mL, Oral, As Directed, PRN insulin lispro (HumaLog) correction- moderate, Moderate Scale, Subcutaneous, AC & bedtime Lantus, 30 units, Subcutaneous, Daily lidocaine 1% injectable solution, 1 mg= 0.1 mL, Intradermal, As Directed, PRN Lipitor, 20 mg= 2 tab, Oral, Daily LORazepam, 0.5 mg= 0.25 mL, IV Push, every 6 hr, PRN Mylanta, 15 mL, Oral, every 6 hr, PRN Narcan, 0.4 mg= 1 mL, IV Push, Once, PRN Normal Saline Flush, 10 mL, IV Push, every 12 hr (samuel) ondansetron, 4 mg= 2 mL, IV Push, every 6 hr, PRN pantoprazole, 40 mg= 1 EA, IV Push, Daily polyethylene glycol 3350, 17 g= 1 packets, Oral, Daily, PRN Sodium Chloride 0.9% 1,000 mL, 1000 mL, IV Toprol-XL 100 mg oral tablet, extended release, 300 mg= 3 tab, Oral, Daily traMADol, 50 mg= 1 tab, Oral, every 4 hr, PRN Xarelto, 20 mg= 1 tab, Oral, every evening Home Lantus 100 units/mL subcutaneous solution, 30 units, Subcutaneous, Daily Lipitor 10 mg oral tablet, 20 mg, Oral, Daily magnesium gluconate 500 mg oral tablet, 500 mg= 1 tab, Oral, TID metFORMIN 500 mg oral tablet, 500 mg= 1 tab, Oral, BID NovoLOG 100 units/mL injectable solution, 12 units, Subcutaneous, BID(AC) PriLOSEC, 20 mg, Oral, Daily Toprol-XL 100 mg oral tablet, extended release, 300 mg= 3 tab, Oral, Daily Vitamin B-12 1000 mcg oral tablet, 1000 mcg= 1 tab, Oral, Daily Xarelto 20 mg oral tablet, 20 mg= 1 tab, Oral, every evening Allergies traZODone??(hallucinations) Social History Electronic Cigarette/Vaping Electronic Cigarette Use: Never. Tobacco Never tobacco user Tobacco Use:. Lab Results Test Name Test Result Date/Time WBC 13.0 x10^3/mcL 11/24/2023 20:55 EDT RBC 4.2 x10^6/mcL 11/24/2023 20:55 EDT Hgb 9.8 g/dL 11/24/2023 20:55 EDT Hct 33.6 % 11/24/2023 20:55 EDT MCV 81.0 fL 11/24/2023 20:55 EDT MCH 23.6 pg 11/24/2023 20:55 EDT MCHC 29.2 g/dL 11/24/2023 20:55 EDT RDW-CV 18.5 % 11/24/2023 20:55 EDT Platelets 766 x10^3/mcL 11/24/2023 20:55 EDT Neutro Auto 79.7 % 11/24/2023 20:55 EDT Lymph Auto 10.4 % 11/24/2023 20:55 EDT Blaine Auto 8.8 % 11/24/2023 20:55 EDT Eos, Auto 0.2 % 11/24/2023 20:55 EDT Basophil Auto 0.5 % 11/24/2023 20:55 EDT Imm Gran Auto 0.4 % 11/24/2023 20:55 EDT Neutro Absolute 10.4 x10^3/mcL 11/24/2023 20:55 EDT RBC Morph Abnormal 11/24/2023 20:55 EDT Anisocyte Small 11/24/2023 20:55 EDT Camden Cells Rare 11/24/2023 20:55 EDT Ovalocytes Small 11/24/2023 20:55 EDT Plt Estimation Increased 11/24/2023 20:55 EDT Schistocytes Rare 11/24/2023 20:55 EDT Teardrop Cells Rare 11/24/2023 20:55 EDT Slide Review Morph Only 11/24/2023 20:55 EDT Prothrombin Time 12.0 seconds 11/24/2023 20:55 EDT INR 1.2 11/24/2023 20:55 EDT Sodium Level 132 mmol/L 11/24/2023 20:55 EDT Potassium Level 5.4 mmol/L 11/24/2023 20:55 EDT Chloride Level 100 mmol/L 11/24/2023 20:55 EDT CO2 23 mmol/L 11/24/2023 20:55 EDT Alk Phos 84 unit/L 11/24/2023 20:55 EDT AST 31 unit/L 11/24/2023 20:55 EDT ALT 49 unit/L 11/24/2023 20:55 EDT BUN 35 mg/dL 11/24/2023 20:55 EDT Glucose Level 240 mg/dL 11/24/2023 20:55 EDT Creatinine Level 1.79 mg/dL 11/24/2023 20:55 EDT eGFR AA 29 11/24/2023 20:55 EDT eGFR Non-AA 11/24/2023 20:55 EDT Calcium Level 9.0 mg/dL 11/24/2023 20:55 EDT Protein Total 7.9 g/dL 11/24/2023 20:55 EDT Albumin Level 2.8 g/dL 11/24/2023 20:55 EDT Bilirubin Total 0.4 mg/dL 11/24/2023 20:55 EDT Lactic Acid Lvl 2.2 mmol/L 11/25/2023 04:40 EDT Lactic Acid Lvl 2.1 mmol/L 11/24/2023 23:43 EDT Lactic Acid Lvl 3.3 mmol/L 11/24/2023 20:55 EDT Glucose POC 240 mg/dL 11/25/2023 03:12 EDT NT-proBNP 2378 pg/mL 11/24/2023 20:55 EDT TSH 2.310 mcIntlUnit/mL 11/24/2023 20:55 EDT Procalcitonin <0.15 ng/mL 11/24/2023 20:55 EDT UA Color Pale Yello 11/25/2023 03:30 EDT UA Color YELLOW. 11/24/2023 23:07 EDT UA Appear CLOUDY. 11/25/2023 03:30 EDT UA Appear CLOUDY. 11/24/2023 23:07 EDT UA Glucose 3+ 11/25/2023 03:30 EDT UA Glucose 3+ 11/24/2023 23:07 EDT UA Bili NEGATIVE 11/25/2023 03:30 EDT UA Bili NEGATIVE 11/24/2023 23:07 EDT UA Ketones TRACE. 11/25/2023 03:30 EDT UA Ketones NEGATIVE 11/24/2023 23:07 EDT UA Spec Grav 1.025 11/25/2023 03:30 EDT UA Spec Grav 1.010 11/24/2023 23:07 EDT UA Blood 2+ 11/25/2023 03:30 EDT UA Blood 2+ 11/24/2023 23:07 EDT UA pH 6.0 11/25/2023 03:30 EDT UA pH 6.0 11/24/2023 23:07 EDT UA Protein 2+ 11/25/2023 03:30 EDT UA Protein 1+ 11/24/2023 23:07 EDT UA Urobilinogen 0.2 Uro 11/25/2023 03:30 EDT UA Urobilinogen 0.2 Uro 11/24/2023 23:07 EDT UA Nitrite NEGATIVE 11/25/2023 03:30 EDT UA Nitrite NEGATIVE 11/24/2023 23:07 EDT UA Leuk Est 2+ 11/25/2023 03:30 EDT UA Leuk Est 2+ 11/24/2023 23:07 EDT UA Culture Ind?. Indicated 11/25/2023 03:30 EDT UA Culture Ind?. Indicated 11/24/2023 23:07 EDT UA WBC >100 11/25/2023 03:30 EDT UA WBC 50-100 11/24/2023 23:07 EDT UA RBC 10-25 11/25/2023 03:30 EDT UA RBC 25-50 11/24/2023 23:07 EDT UA Squam Epithelial None Seen 11/25/2023 03:30 EDT UA Squam Epithelial None Seen 11/24/2023 23:07 EDT UA Yeast Few 11/25/2023 03:30 EDT UA Yeast Many 11/24/2023 23:07 EDT UA Mucous None Seen 11/25/2023 03:30 EDT UA Mucous None Seen 11/24/2023 23:07 EDT UA Bacteria Moderate 11/25/2023 03:30 EDT UA Bacteria Many 11/24/2023 23:07 EDT Influenza A -IDNOW NOT DETECTED. 11/24/2023 20:25 EDT Influenza B -IDNOW NOT DETECTED. 11/24/2023 20:25 EDT SARS-CoV-2 (COVID-19) RNA (ID Now) Not Detected 11/24/2023 20:25 EDT ABO/Rh Type A POS 11/24/2023 20:55 EDT Antibody Screen Gel Negative ABSC 11/24/2023 20:55 EDT Diagnostic Results XR Chest 1 View PROCEDURE INFORMATION:?? Exam: XR Chest?? Exam date and time: 11/24/2023 9:35 PM?? Age: 73 years old?? Clinical indication: Dyspnea? TECHNIQUE:?? Imaging protocol: Radiologic exam of the chest.?? Views: 1 view.? COMPARISON:?? No relevant prior studies available.? FINDINGS:?? Lungs: Unremarkable. No consolidation.?? Pleural spaces: Unremarkable. No pleural effusion. No pneumothorax.?? Heart/Mediastinum: Unremarkable. No cardiomegaly.?? Bones/joints: ??Chronic left rib fracture deformities.? IMPRESSION:?? No acute findings.? Report signed by: Guillermo Anderson On 11/25/2023 ??00:18:42 ECG Atrial fibrillation...V-rate ??46- 57, irreg A-activity Low voltage, extremity and precordial leads...extremity<0.5mV, precordial<1.0mV Probable anteroseptal infarct, old...Q >30mS & abn ST-T, V1-V2 Electronically Signed on 11/25/2023 06:29 EDT Lilibeth Peck Reviewed by: David Leung DO Discharge summary * Dutch Landa PA-C: PERFORM Event Display: Discharge Summary Authored Date: [id number] NAKIA DHAVAL :1950 Age:73 years Sex:Female Visit Date:11/24/2023 Primary Care Physician: Dean Wilson Hospital Course Discharge Summary ?? Date of admission: 11/25/23 ?? Date of discharge: 11/26/23 ?? Discharge diagnoses: Urinary tract infection? Consultations: N/A ?? CODE STATUS: FULL CODE ?? Operations/procedures: ?? Chest XR (11/23): no acute findings ?? Summary of presentation and course ?? This is a 73-year-old female patient??with past medical history significant for but not limited to??diabetes and atrial fibrillation who presented to the emergency department on??11/24/2023 for evaluation of confusion.?? Patient had admitted that she was recently discharged from [facility] for an extended hospital admission of 17 days??due to??complications related to her diabetes.?? Patient was a poor historian in the emergency department however on exam she was pale and hypotensive??with a suprapubic catheter in place. ?? Workup in the emergency department revealed leukocytosis with white blood cell count of 13.0??and lactic acid elevated??at 3.3. ??Patient was given IV fluids and??lactic decreased??to 2.1 prior to admission.?? Workup in the emergency department also revealed that the patient had a??urinary tract infection??with 2+ blood??and 2+ leukocytesterase. Urine cultures obtained.? Patient was initiated on ceftriaxone for UTI in the emergency dept and after IV fluid resuscitationpatient blood pressure improved and confusion improved as well. Patient was ultimately admitted to the medical floor for further testing and treatment.? During hospital course antibiotics were adjusted and patient was treated with IV cefepime. Suprapubic catheter was changed at the time of admission. Patient improved well with IV antibiotic therapy.? Urine cultures resulted positive for Enterobacter cloacae complex.?? Susceptibilities came back prior to time of discharge and it appears urine is sensitive to ciprofloxacin.? Patient will be discharged to home. [facility] services should be resumed including [facility], PT and OT.?? Patient was sent with ciprofloxacin 500 mg BID x 7 days. Patient should follow up with primary care provider in 1-2 weeks.? Greater than 30 minutes was spent on the day of discharge in coordinating care and arranging outpatient follow-up. Physical Exam Vitals & Measurements T:??36.6?C ??(Temporal Artery)?? TMIN:??35.8?C ??(Temporal Artery)?? TMAX:??36.6?C ??(Temporal Artery)?? HR:??103??(Peripheral)?? RR:??16?? BP:??119/66?? SpO2:??90%?? Pain Score:??0?? O2 Therapy:??Room air?? Social History Electronic Cigarette/Vaping Electronic Cigarette Use: Never. Tobacco Never tobacco user Tobacco Use:. Lab Results Last 24 Hours?? Chemistry ? Event Name?? Event Result?? Date/Time?? Sodium Level 135 mmol/L??Low 11/26/23 07:03:00 Potassium Level 4.8 mmol/L 11/26/23 07:03:00 Chloride Level 104 mmol/L 11/26/23 07:03:00 CO2 23 mmol/L 11/26/23 07:03:00 BUN 26 mg/dL??High 11/26/23 07:03:00 Glucose Level 145 mg/dL??High 11/26/23 07:03:00 Creatinine Level 1.14 mg/dL??High 11/26/23 07:03:00 eGFR AA 50??Low 11/26/23 07:03:00 eGFR Non-AA 50??Low 11/26/23 07:03:00 Calcium Level 8.7 mg/dL 11/26/23 07:03:00 Lactic Acid Lvl 0.9 mmol/L 11/26/23 07:03:00 Magnesium Level 2.1 mg/dL 11/26/23 07:03:00 Glucose POC 146 mg/dL??High 11/26/23 07:21:00 ? Hematology ? Event Name?? Event Result?? Date/Time?? WBC 12.5 x10^3/mcL??High 11/26/23 07:03:00 RBC 3.7 x10^6/mcL??Low 11/26/23 07:03:00 Hgb 8.9 g/dL??Low 11/26/23 07:03:00 Hct 30 %??Low 11/26/23 07:03:00 MCV 80.9 fL 11/26/23 07:03:00 MCH 24 pg??Low 11/26/23 07:03:00 MCHC 29.7 g/dL??Low 11/26/23 07:03:00 RDW-CV 18.6 %??High 11/26/23 07:03:00 Platelets 672 x10^3/mcL??High 11/26/23 07:03:00 Segs Man 84 %??High 11/26/23 07:03:00 Lymph Man 7 %??Low 11/26/23 07:03:00 Blaine Man 7 % 11/26/23 07:03:00 Eos Man 0 %??Low 11/26/23 07:03:00 Baso Man 1 % 11/26/23 07:03:00 Band Man 0 % 11/26/23 07:03:00 Lymph, Atyp Man 1 % 11/26/23 07:03:00 Abs Neut Man 10.5 x10^3/mcL 11/26/23 07:03:00 RBC Morph Abnormal 11/26/23 07:03:00 Acanthocyte Small 11/26/23 07:03:00 Anisocyte Large 11/26/23 07:03:00 Sidney Cells Rare 11/26/23 07:03:00 Hypochromia Rare 11/26/23 07:03:00 Microcyte Small 11/26/23 07:03:00 Macrocyte Rare 11/26/23 07:03:00 Ovalocytes Small 11/26/23 07:03:00 Plt Giant Rare 11/26/23 07:03:00 Polychrom Rare 11/26/23 07:03:00 Schistocytes Rare 11/26/23 07:03:00 Teardrop Cells Rare 11/26/23 07:03:00 Vacuoles Noted 11/26/23 07:03:00 Slide Review Man Diff 11/26/23 07:03:00 ? Discharge Plan 1.??Urinary tract infection??N39.0 2.??Hypovolemic shock??R57.1 3.??Atrial fibrillation??I48.91 Orders: ciprofloxacin 500 mg oral tablet, 500 mg = 1 tab, Oral, every 12 hr, # 14 tab, 0 Refill(s), Pharmacy: [facility] #[id number], 87.18, kg, 11/25/23 3:41:00 EDT, Weight Dosing Diet Order, 11/25/23 0:34:00 EDT, Cardiac, Regular Texture/IDDSI7, Heart Healthy Discharge Diet Instruction, Diabetic Diet Discharge Patient, 11/26/23 10:29:00 EDT, Home with VNA Services- resume all home health services including SN, PT, and OT All Diagnoses This Visit Urinary tract infection Hypovolemic shock Atrial fibrillation Patient Education Urinary Tract Infection, Adult Suprapubic Catheter Home Guide Follow Up With When Contact Information Ton [facility], Dean WANG Within 1 to 2 weeks [facility] [address] [place] [address]- Additional Instructions: Medication Reconciliation New Prescription ciprofloxacin (ciprofloxacin 500 mg oral tablet)1 tab Oral (given by mouth) every 12 hours for 7 Days. Refills: 0. ?? Changed insulin aspart (NovoLOG 100 units/mL injectable solution)12 Units Subcutaneous (under the skin) every day. ?? insulin aspart (NovoLOG FlexPen 100 units/mL injectable solution)6 Units Subcutaneous (under the skin) every evening. ?? insulin glargine (Lantus 100 units/mL subcutaneous solution)30 Units Subcutaneous (under the skin) every night at bedtime. ?? Unchanged atorvastatin (Lipitor 10 mg oral tablet)20 Milligrams Oral (given by mouth) every day. ?? calcium-vitamin D (calcium (as carbonate)-vitamin D 600 mg-800 intl units oral tablet)2 tab Oral (given by mouth) every day. ?? cyanocobalamin (Vitamin B-12 1000 mcg oral tablet)1 tab Oral (given by mouth) every day. ?? dapagliflozin (Farxiga 5 mg oral tablet)1 tab Oral (given by mouth) every day. ?? dulaglutide (Trulicity Pen 1.5 mg/0.5 mL subcutaneous solution)0.5 Milliliters Subcutaneous (under the skin) every week. rotate injection sites. ?? metFORMIN (metFORMIN 500 mg oral tablet)1 tab Oral (given by mouth) 2 times a day. ?? metoprolol (Toprol-XL 100 mg oral tablet, extended release)3 tab Oral (given by mouth) every day. ?? omeprazole (PriLOSEC)20 Milligrams Oral (given by mouth) every day. ?? rivaroxaban (Xarelto 20 mg oral tablet)1 tab Oral (given by mouth) every evening. with evening meal. ?? Discontinued dilTIAZem (dilTIAZem 300 mg/24 hours oral tablet, extended release)1 tab Oral (given by mouth) every day. ?? furosemide (Lasix 20 mg oral tablet)1 tab Oral (given by mouth) every day. ?? lisinopril (lisinopril 10 mg oral tablet)1 tab Oral (given by mouth) every day. ?? magnesium gluconate (magnesium gluconate 500 mg oral tablet)1 tab Oral (given by mouth) 3 times a day for 10 Days. Electronically Signed on 11/26/2023 10:41 EDT Dutch Landa PA-C * David Leung DO: PERFORM Event Display: Discharge Summary Authored Date: Patient was seen and examined independently. Agree with the assessment and plan developed by LILY Rabago.?? Electronically Signed on 11/26/2023 16:47 EDT David Leung DO Patient Care team information Care Team Personnel Name: [facility] Position: No Access Member Role: Informed Provider Address: Address: [address] [place] [address]- Care Team Related Persons Name: ZENOBIA ORNELAS Address: Home [address] [place], [place] [id number] Name: BILL MOONEY Address: Home [address] [place], [place] [id number]
--- OUTSIDE RECORDS SUMMARY | 2024-02-24 19:37 | XMS_ITS | Data Portability ---
Author Organization [place] [facility] [address] [place] [address] Care Team Providers Care Fleet Administrator Name Role Phone ROZ CAMILO Primary Care Provider [facility] Manager Heart HENNA QUIGLEY OTHER TRI CORREA Diabetes Education NISHA CALIA OTHER JAYANT DIAZ Urologist Assessment Encounter Date Assessment Date Assessment LastModified by Organization Details LastModified Time 01/06/2024 01/06/2024 I am Progressive ly concerned about her safety. She is currently living with her daughter, and Hope does not feel comfortable staying there. Their relationship is combative, and Hope does not trust her daughter to manage her medications. She feels her daughter has made a number of errors since this arrangement began following her hospitalization in October. I also do not feel Hope is safe to live independently. She has had several infections and medical issues that nearly cost her life due to not seeking medical care in a proper time frame. She is a very complicated patient, and requires 24/7 care at this point. She was be best suited for placement in and assisted living facility. aleksandra Not available 01/06/2024 16:07:30 Plan of Treatment Reminders Order Date Submit Date Provider Last Modified By Organization Details Last Modified Time Details Appointments Medical Nutrition Therapy 2023 03:00P M Not available Not available Not available Follow Up 30 2023 10:30A M Not available Not available Not available Lab HbA1c (hemoglob in A1c), blood 2023 024 [facility] (Registration ), [address] [place] [address] , [place], [address], 02/23/2024 07:55:15 lipid panel, serum 2023 024 [facility] (Registration ), [address] [place] [address] [place], [address], 02/23/2024 07:55:07 CMP, serum or plasma 2023 024 [facility] (Registration ), [address] [place] [address] Dr [facility] [place], [address], 02/08/2024 19:26:39 CBC 2023 024 [facility] (Registration ), [address] [place] [address] Dr [facility] [place], [address], 02/08/2024 19:24:34 Referral home health: wound care nurse referral - daily dressing changes for ulcer left lower leg with daily silvadene applicati on 2022 023 [email or web address] [facility], [address], [place], [address], 01/12/2024 16:24:[address] referral - longstand ing progressi ve hearing loss. Intereste d in hearing aids 2023 024 [facility], [address] [facility], [place], [address], 02/04/2024 04:47:37 diabetic nutrition education referral - Medical diabetic education , and cgm start [address], [address], [place], [address], 11/17/2023 12:22:[address] referral - overdue for diabetic eye exam 2023 024 [email or web address] [facility], [address] [place] [address] [place], [address], 01/28/2024 15:07:54 Procedures None recorded. Surgeries None recorded. Imaging None recorded. Medication Orders cephalexi n 500 mg tablet 2022 023 [facility], [address] [place] [address], [id number], 09/03/2023 09:02:43 Silvadene 1 % topical cream 2022 023 [facility], [address] [place] [address], [id number], 06/19/2023 11:27:13 nystatin 100,000 unit/gram topical powder 2023 024 [email or web address] 63 [facility], [address] [place] [address], [id number], 10/27/2023 11:54:00 diltiazem ER 300 mg capsule,2 4 hr,extend ed release 2023 024 [facility], [address] [place], [address], 01/06/2024 14:34:39 Lantus Solostar U-100 Insulin 100 unit/mL (3 mL) subcutane ous pen 2023 024 [facility], [address] [place] [address], [id number], 02/09/2024 13:41:52 nystatin 100,000 unit/gram topical powder 2023 024 [email or web address] 63 [facility], [address] [place] [address], [id number], 01/06/2024 15:27:32 omeprazol e 20 mg capsule,d elayed release 2023 024 [facility], [address] [place], [address], 02/09/2024 13:41:45 nystatin 100,000 unit/gram topical powder 2023 024 [facility], [address] [place], [address], 02/08/2024 12:24:43 Patient TargetsNo targets recorded. Patient Instructions Encounter Date Encounter Id Patient Instructions Last Modified By Organization Details Last Modified Time 10/27/2023 [id number] Hope - we will increase lantus back up to 30 units daily. We will look into getting you a cgm. I will make a referral to [facility]. I will refer you to audiology to consider hearing aids. We will increase diltiazem back to 300 mg daily - your heart rate is fast today. We will see you back in 2 months, and get blood work at that visit. aleksandra Not available 10/27/2023 11:51:30 01/06/2024 [id number] Hope Sparks I will send omeprazole 20 mg to [facility] for your stomach. I will send nystatin powder to use on your skin yeast infection. We need to increase your lantus to 55 units daily. We will continue to try to get you a cgm. aleksandra Not available 01/06/2024 14:50:14 02/08/2024 [id number] Hope Sparks I will call you with results of blood work, and will sent in a prescription for nystatin powder. aleksandra Not available 02/08/2024 12:04:46 Reason for Referral Accounts Executive Referral f or Referral needed type 2 DM, A1C>9%, CGM referral Referring Physician: Family L[facility]ey [facility], Encounter Date: 05/28/2023 Home Health: Wound Care Nurs e Referral for Cellulitis of left lower limb left lower leg cellulities with weeping ulcer daily dressing changes for ulcer left lower leg with daily silvadene application Referring Physician: Family Lainey Medicine, Encounter Date: 06/19/2023 Maintenance And Operations Supervisor Referral for Type 2 diabetes mellitus without complication Nail care Referring Physician: Family Mary Anne Reza, Encounter Date: 10/05/2023 Diabetic Nutrition Education Referral for Type 2 diabetes mellitus Medical diabetic education, and cgm start Referring Physician: Family Mary Anne Reza, Encounter Date: 10/27/2023 Dog Handler Referral for Typ e 2 diabetes mellitus overdue for diabetic eye exam Referring Physician: Family Mary Anne Reza, Encounter Date: 10/27/2023 School Commissioner Referral for Kaz ateral hearing loss longstanding progressive hearing loss. Interested in hearing aids Referring Physician: Family Mary Anne Reza, Encounter Date: 10/27/2023 Dent Remover Referral for I mpairment of balance Referring Physician: Family Mary Anne Reza, Encounter Date: 11/30/2023 Maintenance And Operations Supervisor Referral for Neur opathy due to type 2 diabetes mellitus Diabetic Shoes Referring Physician: Family Mary Anne Reza, Encounter Date: 01/08/2024 Maintenance And Operations Supervisor Referral for Type 2 diabetes mellitus without complication foot care Referring Physician: Family Mary Anne Reza, Encounter Date: 01/26/2024 Results Created Date Observation Date Name Description Value Unit Range Abnormal Flag Note LastModifiedBy Organization Detail LastModifiedTime 11/04/1911/04/2023 COMPL ETE BLOOD COUNT W/DIF F WBC 11.50 10_3/ uL 4.4-10 .8 high Not Available [address] [place], [address] 11/04/2023 23:13:35 11/04/19 24 11/04/2023 COMPL ETE BLOOD COUNT W/DIF F RBC 4.17 10_6/ uL 3.93-5 .22 normal Not Available [address] [place], [address] 11/04/2023 23:13:35 11/04/19 24 11/04/2023 COMPL ETE BLOOD COUNT W/DIF F HGB 9.7 g/dL 11.2-1 5.7 low Not Available [address] [place], [address] 11/04/2023 23:13:35 11/04/19 24 11/04/2023 COMPL ETE BLOOD COUNT W/DIF F HCT 33.8 % 36.0-4 6.0 low Not Available [address] [place], [address] 11/04/2023 23:13:35 11/04/19 24 11/04/2023 COMPL ETE BLOOD COUNT W/DIF F MCV 81 fL 80-95 normal Not Available Brennen mesa [address] [place], [address] 11/04/2023 23:13:35 11/04/19 24 11/04/2023 COMPL ETE BLOOD COUNT W/DIF F MCH 23.3 pg 27.0-3 3.0 low Not Available [address] [place], [address] 11/04/2023 23:13:35 11/04/19 24 11/04/2023 COMPL ETE BLOOD COUNT W/DIF F MCHC 28.7 % 32.0-3 6.0 low Not Available [address] [place], [address] 11/04/2023 23:13:35 11/04/19 24 11/04/2023 COMPL ETE BLOOD COUNT W/DIF F RDW 19.2 % 11.7-1 4.6 high Not Available [address] [place], [address] 11/04/2023 23:13:35 11/04/19 24 11/04/2023 COMPL ETE BLOOD COUNT W/DIF F platelet count 465 10_3/ uL 130-40 0 high Not Available [address] [place], [address] 11/04/2023 23:13:35 11/04/19 24 11/04/2023 COMPL ETE BLOOD COUNT W/DIF F MPV 10.8 fL 8.0-11 .0 normal Not Available [address] [place], [address] 11/04/2023 23:13:35 11/04/19 24 11/04/2023 COMPL ETE BLOOD COUNT W/DIF F neutrophils % 66.8 % Not Available [address] [place], [address] 11/04/2023 23:13:35 11/04/19 24 11/04/2023 COMPL ETE BLOOD COUNT W/DIF F lymphocytes % 20.5 % Not Available [address] [facility] [place], [address] 11/04/2023 23:13:35 11/04/19 24 11/04/2023 COMPL ETE BLOOD COUNT W/DIF F monocytes % 10.1 % Not Available [address] [place], [address] 11/04/2023 23:13:35 11/04/19 24 11/04/2023 COMPL ETE BLOOD COUNT W/DIF F eosinophils % 1.1 % Not Available [address] [place], [address] 11/04/2023 23:13:35 11/04/19 24 11/04/2023 COMPL ETE BLOOD COUNT W/DIF F basophils % 0.5 % Not Available [address] [facility] [place], [address] 11/04/2023 23:13:35 11/04/19 24 11/04/2023 COMPL ETE BLOOD COUNT W/DIF F immature grans % 1.0 % Not Available [address] [place], [address] 11/04/2023 23:13:35 11/04/19 24 11/04/2023 COMPL ETE BLOOD COUNT W/DIF F nucleated RBC 0.0 % 0.0-0. 3 normal Not Available [address] [place], [address] 11/04/2023 23:13:35 11/04/19 24 11/04/2023 COMPL ETE BLOOD COUNT W/DIF F absolute neutrophil count 7.68 10_3/ uL 1.2-6. 7 high Not Available [address] [place], [address] 11/04/2023 23:13:35 11/04/19 24 11/04/2023 COMPL ETE BLOOD COUNT W/DIF F absolute lymphocyte count 2.36 10_3/ uL 1.2-3. 4 normal Not Available [address] [place], [address] 11/04/2023 23:13:35 11/04/19 24 11/04/2023 COMPL ETE BLOOD COUNT W/DIF F absolute monocyte count 1.16 10_3/ uL 0.1-0. 8 high Not Available [address] [place], [address] 11/04/2023 23:13:35 11/04/19 24 11/04/2023 COMPL ETE BLOOD COUNT W/DIF F absolute eosinophil count 0.13 10_3/ uL 0.0-0. 7 normal Not Available [address] [place], [address] 11/04/2023 23:13:35 11/04/19 24 11/04/2023 COMPL ETE BLOOD COUNT W/DIF F absolute basophil count 0.06 10_3/ uL 0.0-0. 2 normal Not Available [address] [place], [address] 11/04/2023 23:13:35 11/04/19 24 11/04/2023 PROTH ROMBI N TIME prothrombin time 14.0 sec 9.1-11 .1 high Not Available [address] [place], [address] 11/04/2023 23:28:36 11/04/19 24 11/04/2023 PROTH ROMBI N TIME INR 1.4 0.9-1. 1 high Recom nacny d INR thera peuti c range s for orall y admin ister ed drugs are as follo ws: -Bernard dard Inten sity 2.0 to 3.0 -High er Inten sity 3.0 to 4.5 Not Available [address] [place], [address] 11/04/2023 23:28:36 11/04/19 24 11/04/2023 PTT ACTIV ATED PTT activated 33.4 sec 23.6-3 2.8 high Hepar in Thera peuti c Range for PTT = 52-84 secon ds New Hepar in Thera peuti c Range 07/28 Not Available [address] [place], [address] 11/04/2023 23:28:36 11/04/19 24 11/04/2023 COMPR EHENS JUAN JOSE METAB OLIC PANEL calcium 8.3 mg/dL 8.5-10 .1 low Not Available [address] [place], [address] 11/04/2023 23:42:36 11/04/19 24 11/04/2023 COMPR EHENS JUAN JOSE METAB OLIC PANEL glucose 696 mg/dL 74-106 panic high Criti sanjuana value repor brent to and readb ack from Lakia Winkler, ER at 2338 11/03 by LAB.K PAM bhat verpierre ied by repekristopher t ghsasan sis Not Available [address] [place], [address] 11/04/2023 23:42:36 11/04/19 24 11/04/2023 COMPR EHENS JUAN JOSE METAB OLIC PANEL BUN 38 mg/dL 7-18 high Not Available [address] [place], [address] 11/04/2023 23:42:36 11/04/19 24 11/04/2023 COMPR EHENS JUAN JOSE METAB OLIC PANEL creatinine 2.0 mg/dL 0.55-1 .02 high Not Available [address] [place], [address] 11/04/2023 23:42:36 11/04/19 24 11/04/2023 COMPR EHENS JUAN JOSE METAB OLIC PANEL estimated GFR 25.57 mL/min /1.73m 2 The eGFR is calcu lated from a serum creat inine using the CKD-E PI 2020 equat ion. Other varia bles requi red for the equat ion are gende r and age; this equat ion does not inclu de a race coeff icien t. This equat ion has simil ar overa ll perfo rmanc e to previ ous equat ions excep t value s may diffe r, in parti cular , in patie nts with highe r value s of eGFR and young er-ag ed adult s. Not Available [address] [place], [address] 11/04/2023 23:42:36 11/04/19 24 11/04/2023 COMPR EHENS JUAN JOSE METAB OLIC PANEL total protein 6.7 g/dL 6.4-8. 2 normal Not Available [address] [place], [address] 11/04/2023 23:42:36 11/04/19 24 11/04/2023 COMPR EHENS JUAN JOSE METAB OLIC PANEL albumin 2.8 g/dL 3.4-5. 0 low Not Available [address] [place], [address] 11/04/2023 23:42:36 11/04/19 24 11/04/2023 COMPR EHENS JUAN JOSE METAB OLIC PANEL bilirubin, total 0.5 mg/dL 0.2-1. 0 normal Not Available [address] [place], [address] 11/04/2023 23:42:36 11/04/19 24 11/04/2023 COMPR EHENS JUAN JOSE METAB OLIC PANEL alk phos 88 U/L 46-116 normal Not Available [address] [place], [address] 11/04/2023 23:42:36 11/04/19 24 11/04/2023 COMPR EHENS JUAN JOSE METAB OLIC PANEL sodium 129 mmol/ L 136-14 5 low Not Available [address] [place], [address] 11/04/2023 23:42:36 11/04/19 24 11/04/2023 COMPR EHENS JUAN JOSE METAB OLIC PANEL potassium 6.8 mmol/ L 3.5-5. 1 panic high Criti sanjuana value repor brent to and readb ack from Lakia Winkler, ER at 2338 11/03 by LAB.K PAM Resul t verif ied by repekristopher t ghassan sis Not Available [address] [place], [address] 11/04/2023 23:42:36 11/04/19 24 11/04/2023 COMPR EHENS JUAN JOSE METAB OLIC PANEL chloride 97 mmol/ L 98-107 low Not Available [address] [place], [address] 11/04/2023 23:42:36 11/04/19 24 11/04/2023 COMPR EHENS JUAN JOSE METAB OLIC PANEL CO2 18.2 mmol/ L 21.0-3 2.0 low Not Available [address] [place], [address] 11/04/2023 23:42:36 11/04/19 24 11/04/2023 COMPR EHENS JUAN JOSE METAB OLIC PANEL anion gap 13.8 mmol/ L 3-11 high Not Available [address] [place], [address] 11/04/2023 23:42:36 11/04/19 24 11/04/2023 COMPR EHENS JUAN JOSE METAB OLIC PANEL AST 130 U/L 15-37 high Not Available Brennen [address] [place], [address] 11/04/2023 23:42:36 11/04/19 24 11/04/2023 COMPR EHENS JUAN JOSE METAB OLIC PANEL ALT 77 U/L 14-59 high Not Available Brennen [address] [place], [address] 11/04/2023 23:42:36 11/04/19 24 11/04/2023 TSH (W/RE F FT4) TSH (w/ref FT4) 1.78 uIU/m L 0.36-3 .74 normal Not Available [address] [place], [address] 11/04/2023 23:42:36 11/04/19 24 11/04/2023 TROPO THU I troponin I < 50 NG/L < or =60 Not Available [address] [place], [address] 11/04/2023 23:42:37 11/04/19 24 11/06/2023 BLOOD CULTU RE ( AGE => 8 YRS) blood culture ( age => 8 yrs) Blood Cultu re ( Age => 8 Yrs) NO GROWT H 24 HOURS Not Available [address] [place], [address] 11/06/2023 01:18:12 11/04/19 24 11/06/2023 BLOOD CULTU RE ( AGE => 8 YRS) blood culture ( age => 8 yrs) Blood Cultu re ( Age => 8 Yrs) NO GROWT H 24 HOURS Not Available [address] [place], [address] 11/06/2023 01:18:13 11/04/1911/07/2023 BLOOD CULTU RE ( AGE => 8 YRS) blood culture ( age => 8 yrs) Blood Cultu re ( Age => 8 Yrs) NO GROWT H 48 HOURS Not Available [address] [place], [address] 11/07/2023 01:17:31 11/04/19 24 11/07/2023 BLOOD CULTU RE ( AGE => 8 YRS) blood culture ( age => 8 yrs) Blood Cultu re ( Age => 8 Yrs) NO GROWT H 48 HOURS Not Available [address] [place], [address] 11/07/2023 01:17:33 11/04/19 24 11/08/2023 BLOOD CULTU RE ( AGE => 8 YRS) blood culture ( age => 8 yrs) Blood Cultu re ( Age => 8 Yrs) NO GROWT H 72 HOURS Not Available [address] [place], [address] 11/08/2023 01:17:35 11/04/1911/08/2023 BLOOD CULTU RE ( AGE => 8 YRS) blood culture ( age => 8 yrs) Blood Cultu re ( Age => 8 Yrs) NO GROWT H 72 HOURS Not Available [address] [place], [address] 11/08/2023 01:19:36 11/04/19 24 11/09/2023 BLOOD CULTU RE ( AGE => 8 YRS) blood culture ( age => 8 yrs) Blood Cultu re ( Age => 8 Yrs) NO GROWT H 96 HOURS Not Available [address] [place], [address] 11/09/2023 01:18:10 11/04/19 24 11/09/2023 BLOOD CULTU RE ( AGE => 8 YRS) blood culture ( age => 8 yrs) Blood Cultu re ( Age => 8 Yrs) NO GROWT H 96 HOURS Not Available [address] [place], [address] 11/09/2023 01:18:11 11/04/19 24 11/10/2023 BLOOD CULTU RE ( AGE => 8 YRS) blood culture ( age => 8 yrs) Blood Cultu re ( Age => 8 Yrs) NO GROWT H 120 HOURS Not Available [address] [place], [address] 11/10/2023 01:18:44 11/04/19 24 11/10/2023 BLOOD CULTU RE ( AGE => 8 YRS) blood culture ( age => 8 yrs) Blood Cultu re ( Age => 8 Yrs) NO GROWT H 120 HOURS Not Available [address] [place], [address] 11/10/2023 01:18:45 11/05/1911/05/2023 VENOU S BLOOD GAS pH (venous) 7.24 7.31-7 .41 low Not Available [address] [place], [address] 11/05/2023 01:24:59 11/05/1911/05/2023 VENOU S BLOOD GAS pCO2 (venous) 40 mmHg 41-51 low Not Available [address] [place], [address] 11/05/2023 01:24:59 11/05/1911/05/2023 VENOU S BLOOD GAS pO2 (venous) 32 mmHg Not Available [address] [place], [address] 11/05/2023 01:24:59 05/16/11/05/2023 VENOU S BLOOD GAS TCO2 (venous) 16 mmol/ L 24-29 low Not Available [address] [place], [address] 11/05/2023 01:24:59 11/05/1911/05/2023 VENOU S BLOOD GAS HCO3 (venous) 17 mmol/ L 23-28 low Not Available [address] [place], [address] 11/05/2023 01:24:59 11/05/1911/05/2023 VENOU S BLOOD GAS BE (venous) -11 mmol/ L -2-3 low Not Available [address] [place], [address] 11/05/2023 01:24:59 11/05/1911/05/2023 VENOU S BLOOD GAS O2 sat (venous) 44 % Not Available Erin negrete [address] [place], [address] 11/05/2023 01:24:59 11/05/1911/05/2023 URINA LYSIS color Yellow yellow Not Available Brennen mesa [address] [place], [address] 11/05/2023 01:30:01 11/05/1911/05/2023 URINA LYSIS clarity Cloudy clear Not Available Brennen [address] [place] [place], [address] 11/05/2023 01:30:01 11/05/1911/05/2023 URINA LYSIS specific gravity <= 1.005 1.005- 1.025 normal Not Available [address] [place], [address] 11/05/2023 01:30:01 11/05/1911/05/2023 URINA LYSIS pH 5.0 5-8 normal Not Available Brennen mesa [address] [place], [address] 11/05/2023 01:30:01 11/05/19 24 11/05/2023 URINA LYSIS leukocyte esterase Small negati ve abnormal Not Available [address] [place], [address] 11/05/2023 01:30:01 11/05/19 24 11/05/2023 URINA LYSIS nitrite Negati ve negati ve Not Available [address] [place], [address] 11/05/2023 01:30:01 11/05/19 24 11/05/2023 URINA LYSIS protein Negati ve mg/dL neg-tr richar Not Available [address] [place], [address] 11/05/2023 01:30:01 11/05/19 24 11/05/2023 URINA LYSIS glucose 500 mg/dL negati ve abnormal Not Available [address] [place], [address] 11/05/2023 01:30:01 11/05/19 24 11/05/2023 URINA LYSIS ketones Negati ve mg/dL negati ve Not Available [address] [place], [address] 11/05/2023 01:30:01 11/05/19 24 11/05/2023 URINA LYSIS urobilinogen 0.2 mg/dL up to 0.2 Not Available [address] [place], [address] 11/05/2023 01:30:01 11/05/19 24 11/05/2023 URINA LYSIS bilirubin Negati ve negati ve Not Available [address] [place], [address] 11/05/2023 01:30:01 11/05/19 24 11/05/2023 URINA LYSIS blood Small negati ve abnormal Not Available [address] [place], [address] 11/05/2023 01:30:01 11/05/19 24 11/05/2023 URINA LYSIS color Yellow yellow Not Available Brennen mesa [address] [place], [address] 11/05/2023 01:40:02 11/05/19 24 11/05/2023 URINA LYSIS clarity Cloudy clear Not Available Brennen mesa [address] [place], [address] 11/05/2023 01:40:02 11/05/19 24 11/05/2023 URINA LYSIS specific gravity <= 1.005 1.005- 1.025 normal Not Available [address] [place], [address] 11/05/2023 01:40:02 11/05/19 24 11/05/2023 URINA LYSIS pH 5.0 5-8 normal Not Available Brennen mesa [address] [place], [address] 11/05/2023 01:40:02 11/05/19 24 11/05/2023 URINA LYSIS leukocyte esterase Small negati ve abnormal Not Available [address] [place], [address] 11/05/2023 01:40:02 11/05/19 24 11/05/2023 URINA LYSIS nitrite Negati ve negati ve Not Available [address] [place], [address] 11/05/2023 01:40:02 11/05/19 24 11/05/2023 URINA LYSIS protein Negati ve mg/dL neg-tr richar Not Available [address] [place], [address] 11/05/2023 01:40:02 11/05/19 24 11/05/2023 URINA LYSIS glucose 500 mg/dL negati ve abnormal Not Available [address] [place], [address] 11/05/2023 01:40:02 11/05/19 24 11/05/2023 URINA LYSIS ketones Negati ve mg/dL negati ve Not Available [address] [place], [address] 11/05/2023 01:40:02 11/05/19 24 11/05/2023 URINA LYSIS urobilinogen 0.2 mg/dL up to 0.2 Not Available [address] [place], [address] 11/05/2023 01:40:02 11/05/19 24 11/05/2023 URINA LYSIS bilirubin Negati ve negati ve Not Available [address] [place], [address] 11/05/2023 01:40:02 11/05/19 24 11/05/2023 URINA LYSIS blood Small negati ve abnormal Not Available [address] [place], [address] 11/05/2023 01:40:02 11/05/19 24 11/05/2023 MICRO SCOPI C FINDI NGS WBC >50 hpf 0-5 abnormal Not Available [address] [place], [address] 11/05/2023 01:40:03 11/05/19 24 11/05/2023 MICRO SCOPI C FINDI NGS RBC hpf 0-2 WBC's obscu re micro scopi c exam. Not Available [address] [place], [address] 11/05/2023 01:40:03 11/05/19 24 11/05/2023 MICRO SCOPI C FINDI NGS epithelial cells hpf negati ve WBC's obscu re micro scopi c exam. Not Available [address] [place], [address] 11/05/2023 01:40:03 11/05/19 24 11/05/2023 MICRO SCOPI C FINDI NGS other cells Many Yeast negati ve Not Available [address] [place], [address] 11/05/2023 01:40:03 11/05/19 24 11/05/2023 MICRO SCOPI C FINDI NGS bacteria Modera te hpf negati ve Not Available [address] [place], [address] 11/05/2023 01:40:03 11/05/19 24 11/05/2023 MICRO SCOPI C FINDI NGS crystals Negati ve hpf negati ve Not Available [address] [place], [address] 11/05/2023 01:40:03 11/05/19 24 11/05/2023 MICRO SCOPI C FINDI NGS mucus Negati ve negati ve Not Available [address] [place], [address] 11/05/2023 01:40:03 11/05/19 24 11/05/2023 MICRO SCOPI C FINDI NGS C S indicated? Yes Not Available [address] [place], [address] 11/05/2023 01:40:03 11/05/19 24 11/05/2023 BASIC METAB OLIC PANEL calcium 8.0 mg/dL 8.5-10 .1 low Not Available [address] [place], [address] 11/05/2023 01:49:01 11/05/19 24 11/05/2023 BASIC METAB OLIC PANEL glucose 520 mg/dL 74-106 panic high Criti sanjuana value GLUCO SE repor brent to and readb ack from LAKIA WINKLER, JENNIFERT (ER) at 0145 11/04 by LAB.B ONC Not Available [address] [place], [address] 11/05/2023 01:49:01 11/05/1911/05/2023 BASIC METAB OLIC PANEL BUN 37 mg/dL 7-18 high Not Available Brennen mesa [address] [place], [address] 11/05/2023 01:49:01 11/05/1911/05/2023 BASIC METAB OLIC PANEL creatinine 1.8 mg/dL 0.55-1 .02 high Not Available [address] [place], [address] 11/05/2023 01:49:01 11/05/1911/05/2023 BASIC METAB OLIC PANEL estimated GFR 29.02 mL/min /1.73m 2 The eGFR is calcu lated from a serum creat inine using the CKD-E PI 2020 equat ion. Other varia bles requi red for the equat ion are gende r and age; this equat ion does not inclu de a race coeff icien t. This equat ion has simil ar overa ll perfo rmanc e to previ ous equat ions excep t value s may diffe r, in parti cular , in patie nts with highe r value s of eGFR and young er-ag ed adult s. Not Available [address] [place], [address] 11/05/2023 01:49:01 11/05/19 24 11/05/2023 BASIC METAB OLIC PANEL sodium 133 mmol/ L 136-14 5 low Not Available [address] [place], [address] 11/05/2023 01:49:01 11/05/19 24 11/05/2023 BASIC METAB OLIC PANEL potassium 5.9 mmol/ L 3.5-5. 1 high Not Available [address] [place], [address] 11/05/2023 01:49:01 11/05/1911/05/2023 BASIC METAB OLIC PANEL chloride 101 mmol/ L 98-107 normal Not Available [address] [place], [address] 11/05/2023 01:49:01 11/05/19 24 11/05/2023 BASIC METAB OLIC PANEL CO2 17.1 mmol/ L 21.0-3 2.0 low Not Available [address] [place], [address] 11/05/2023 01:49:01 11/05/1911/05/2023 BASIC METAB OLIC PANEL anion gap 14.9 mmol/ L 3-11 high Not Available [address] [place], [address] 11/05/2023 01:49:01 11/05/1911/05/2023 TROPO THU I troponin I < 50 NG/L < or =60 Not Available [address] [place], [address] 11/05/2023 01:49:03 11/05/19 24 11/06/2023 URINE CULTU RE urine culture Urine Cultu re ACTIO N ID AND SUSCE PTIBI LITY TO FOLLO W APPEA TARA Gram Negat juan jose Inge APPEA TARA Yeast COLON Y COUNT Not Available [address] [place], [address] 11/06/2023 12:36:12 11/05/19 24 11/06/2023 URINE CULTU RE urine culture colon ies/m L 10,00 0 - 50,00 0 COLON Y COUNT >100, 000 Day 1 Resul t ISOLA CHANCE BELOW O:GNR (ORGA NISM ID: 1.1) - GRAM NEGAT JUAN JOSE INGE Urine Cultu re (ORGA NISM ID: 1.1) - COLON Y COUNT (ORGA NISM ID: 1.1) - 10,00 0 - 50,00 0 O:YEA (ORGA NISM ID: 1.2) - YEAST Urine Cultu re (ORGA NISM ID: 1.2) - COLON Y COUNT (ORGA NISM ID: 1.2) - >100, 000 Not Available [address] [place], [address] 11/06/2023 12:36:12 11/05/19 24 11/07/2023 URINE CULTU RE urine culture Urine Cultu re Presu mptiv e ident ifica tion of CIRILO DA ALBIC ANS based on colon y morph ology . ACTIO N ID AND SUSCE PTIBI LITY TO FOLLO W ACTIO N ID AND SUSCE PTIBI LITY TO FOLLO W APPEA TARA Gram Negat juan jose Inge APPEA TARA Yeast APPEA TRAA Gram Negat juan jose Inge APPEA TARA Yeast COLON Y COUNT Not Available [address] [place], [address] 11/07/2023 09:14:13 11/05/19 24 11/07/2023 URINE CULTU RE urine culture colon ies/m L 10,00 0 - 50,00 0 COLON Y COUNT >100, 000 COLON Y COUNT 10,00 0 - 50,00 0 COLON Y COUNT >100, 000 Day 1 Resul t ISOLA CHANCE BELOW Day 2 Resul t ISOLA CHANCE BELOW O:GNR (ORGA NISM ID: 1.1) - GRAM NEGAT JUAN JOSE INGE Urine Cultu re (ORGA NISM ID: 1.1) - COLON Y COUNT (ORGA NISM ID: 1.1) - 10,00 0 - 50,00 0 O:CAN ALB (ORGA NISM ID: 1.2) - CIRILO DA ALBIC ANS Urine Cultu re (ORGA NISM ID: 1.2) - COLON Y COUNT (ORGA NISM ID: 1.2) - >100, 000 Not Available [address] [place], [address] 11/07/2023 09:14:13 11/05/19 24 11/08/2023 URINE CULTU RE urine culture Urine Cultu re Presu mptiv e ident ifica tion of CIRILO DA ALBIC ANS based on colon y morph ology . ACTIO N ID AND SUSCE PTIBI LITY TO FOLLO W ACTIO N ID AND SUSCE PTIBI LITY TO FOLLO W APPEA TARA Gram Negat juan jose Inge APPEA TARA Yeast APPEA TARA Gram Negat juan jose Inge APPEA TARA Yeast APPEA TARA Gram Negat juan jose Inge APPEA TARA Yeast COLON Y COUNT Not Available [address] [place], [address] 11/08/2023 09:12:53 11/05/19 24 11/08/2023 URINE CULTU RE urine culture colon ies/m L 10,00 0 - 50,00 0 COLON Y COUNT >100, 000 COLON Y COUNT 10,00 0 - 50,00 0 COLON Y COUNT >100, 000 COLON Y COUNT 10,00 0 - 50,00 0 COLON Y COUNT >100, 000 Day 1 Resul t ISOLA CHANCE BELOW Day 2 Resul t ISOLA CHANCE BELOW Day 3 Resul t ISOLA CHANCE BELOW O:ENT CPX (ORGA NISM ID: 1.1) - ENTER OBACT ER CLOAC AE COMPL EX Urine Cultu re (ORGA NISM ID: 1.1) - COLON Y COUNT (ORGA NISM ID: 1.1) - 10,00 0 - 50,00 0 O:CAN ALB (ORGA NISM ID: 1.2) - CIRILO DA ALBIC ANS Urine Cultu re (ORGA NISM ID: 1.2) - COLON Y COUNT (ORGA NISM ID: 1.2) - >100, 000 ORGAN ISM ID: 1.1 ANTIB IOTIC INTER PRETA TION THOMAS STATU S Cefaz jayce R >=64 F Cefta zidim e S <=1 F CEFTR IAXON E S <=1 F Cipro floxa lukas S <=0.2 5 F Genta micin S <=1 F Nitro furan toin S 32 F Imipe nem S 0.5 F Levof loxac in S <=0.1 2 F Tobra mycin S <=1 F Trime thopr im/Machado lfame thoxa zole S <=20 F Piper acill in/Ta zobac munson S <=4 F Not Available [address] [place], [address] 11/08/2023 09:12:53 02/08/20 24 02/08/2024 COMPL ETE BLOOD COUNT NO DIFF WBC 8.59 10_3/ uL 4.4-10 .8 normal Not Available [address] [place], [address] 02/08/2024 19:24:34 02/08/20 24 02/08/2024 COMPL ETE BLOOD COUNT NO DIFF RBC 5.16 10_6/ uL 3.93-5 .22 normal Not Available [address] [place], [address] 02/08/2024 19:24:34 02/08/20 24 02/08/2024 COMPL ETE BLOOD COUNT NO DIFF HGB 11.7 g/dL 11.2-1 5.7 normal Not Available [address] [place], [address] 02/08/2024 19:24:34 02/08/20 24 02/08/2024 COMPL ETE BLOOD COUNT NO DIFF HCT 41.9 % 36.0-4 6.0 normal Not Available [address] [place], [address] 02/08/2024 19:24:34 02/08/20 24 02/08/2024 COMPL ETE BLOOD COUNT NO DIFF MCV 81 fL 80-95 normal Not Available Brennen mesa [address] [place], [address] 02/08/2024 19:24:34 02/08/20 24 02/08/2024 COMPL ETE BLOOD COUNT NO DIFF MCH 22.7 pg 27.0-3 3.0 low Not Available [address] [place], [address] 02/08/2024 19:24:34 02/08/20 24 02/08/2024 COMPL ETE BLOOD COUNT NO DIFF MCHC 27.9 % 32.0-3 6.0 low Not Available [address] [place], [address] 02/08/2024 19:24:34 02/08/20 24 02/08/2024 COMPL ETE BLOOD COUNT NO DIFF RDW 17.9 % 11.7-1 4.6 high Not Available [address] [place], [address] 02/08/2024 19:24:34 02/08/20 24 02/08/2024 COMPL ETE BLOOD COUNT NO DIFF platelet count 478 10_3/ uL 130-40 0 high Not Available [address] [place], [address] 02/08/2024 19:24:34 02/08/20 24 02/08/2024 COMPL ETE BLOOD COUNT NO DIFF MPV 10.4 fL 8.0-11 .0 normal Not Available [address] [place], [address] 02/08/2024 19:24:34 02/08/20 24 02/08/2024 COMPR EHENS JUAN JOSE METAB OLIC PANEL calcium 9.3 mg/dL 8.5-10 .1 normal Not Available [address] [place], [address] 02/08/2024 19:26:39 02/08/20 24 02/08/2024 COMPR EHENS JUAN JOSE METAB OLIC PANEL glucose 357 mg/dL 74-106 high Not Available Brennen mesa [address] [place], [address] 02/08/2024 19:26:39 02/08/20 24 02/08/2024 COMPR EHENS JUAN JOSE METAB OLIC PANEL BUN 18 mg/dL 7-18 normal Not Available Brennen mesa [address] [place], [address] 02/08/2024 19:26:39 02/08/20 24 02/08/2024 COMPR EHENS JUAN JOSE METAB OLIC PANEL creatinine 1.2 mg/dL 0.55-1 .02 high Not Available [address] [place], [address] 02/08/2024 19:26:39 02/08/20 24 02/08/2024 COMPR EHENS JUAN JOSE METAB OLIC PANEL estimated GFR 47.21 mL/min /1.73m 2 The eGFR is calcu lated from a serum creat inine using the CKD-E PI 2020 equat ion. Other varia bles requi red for the equat ion are gende r and age; this equat ion does not inclu de a race coeff icien t. This equat ion has simil ar overa ll perfo rmanc e to previ ous equat ions excep t value s may diffe r, in parti cular , in patie nts with highe r value s of eGFR and young er-ag ed adult s. Not Available [address] [place], [address] 02/08/2024 19:26:39 02/08/20 24 02/08/2024 COMPR EHENS JUAN JOSE METAB OLIC PANEL total protein 7.5 g/dL 6.4-8. 2 normal Not Available [address] [place], [address] 02/08/2024 19:26:39 02/08/20 24 02/08/2024 COMPR EHENS JUAN JOSE METAB OLIC PANEL albumin 3.2 g/dL 3.4-5. 0 low Not Available [address] [place], [address] 02/08/2024 19:26:39 02/08/20 24 02/08/2024 COMPR EHENS JUAN JOSE METAB OLIC PANEL bilirubin, total 0.26 mg/dL 0.2-1. 0 normal Not Available [address] [place], [address] 02/08/2024 19:26:39 02/08/20 24 02/08/2024 COMPR EHENS JUAN JOSE METAB OLIC PANEL alk phos 68 U/L 46-116 normal Not Available [address] [place], [address] 02/08/2024 19:26:39 02/08/20 24 02/08/2024 COMPR EHENS JUAN JOSE METAB OLIC PANEL sodium 134 mmol/ L 136-14 5 low Not Available [address] [place], [address] 02/08/2024 19:26:39 02/08/20 24 02/08/2024 COMPR EHENS JUAN JOSE METAB OLIC PANEL potassium 5.0 mmol/ L 3.5-5. 1 normal Not Available [address] [place], [address] 02/08/2024 19:26:39 02/08/20 24 02/08/2024 COMPR EHENS JUAN JOSE METAB OLIC PANEL chloride 99 mmol/ L 98-107 normal Not Available [address] [place], [address] 02/08/2024 19:26:39 02/08/20 24 02/08/2024 COMPR EHENS JUAN JOSE METAB OLIC PANEL CO2 23.1 mmol/ L 21.0-3 2.0 normal Not Available [address] [place], [address] 02/08/2024 19:26:39 02/08/20 24 02/08/2024 COMPR EHENS JUAN JOSE METAB OLIC PANEL anion gap 11.9 mmol/ L 3-11 high Not Available [address] [place], [address] 02/08/2024 19:26:39 02/08/20 24 02/08/2024 COMPR EHENS JUAN JOSE METAB OLIC PANEL AST 18 U/L 15-37 normal Not Available Brennen mesa [address] [place], [address] 02/08/2024 19:26:39 02/08/20 24 02/08/2024 COMPR EHENS JUAN JOSE METAB OLIC PANEL ALT 21 U/L 14-59 normal Not Available Brennen mesa [address] [place], [address] 02/08/2024 19:26:39 02/08/20 24 02/08/2024 LIPID 2 cholesterol 140 mg/dL <200 Not Available [facility] (Registration ) [address] [place] [address] [place], [address], 02/08/2024 19:26:39 02/08/20 24 02/08/2024 LIPID 2 triglyceride 70 mg/dL <150 Not Available [facility] (Registration ) [address] [place] [address] [place], [address], 02/08/2024 19:26:39 02/08/20 24 02/08/2024 LIPID 2 HDL cholesterol 60 mg/dL 40-60 Not Available [facility] (Registration ) [address] [place] [address] [place], [address], 02/08/2024 19:26:39 02/08/20 24 02/08/2024 LIPID 2 calculated LDL 66 mg/dL <100 Natio nal Loan stero l Educa tion Progr am (NCEP -ATPI II) class ifica tions : Loan stero l <200 mg/dL Dinorah able Loan stero l 200-2 39 mg/dL Borde rline High Loan stero l >or=2 40 mg/dL High HDL <40 mg/dL Low HDL >or=6 0 mg/dL High LDL <100 mg/dL Optim al LDL 100-1 29 mg/dL Near Optim al/Ab ove Optim al LDL 130-1 59 mg/dL Borde rline High LDL 160-1 89 mg/dL High LDL >or=1 90 mg/dL Very High *The above refer ence range is for adult s 18 years or older . Not Available [facility] (Registration ) [address] [place] [address] [place], [address], 02/08/2024 19:26:39 02/08/20 24 02/08/2024 HEMOG LOBIN A1C hemoglobin A1C > 13.0 % <5.7 high Resul t verif ied by dilut ion and repea t ghassan sis Refer ence Range s <5.7 Elissa l 5.7-6 .4% Predi abete s 6.5% or great er Diagn ostic for diabe chance (if confi rmed) Refer ences : 1. [facility]i can Diabe chance [facility] iatio n. Clas sific ation and Diagn osis of Diabe chance. Diabe chance [facility] 2018; 2(Sup pleme nt 1):S1 3-s28 . Not Available [facility] (Registration ) [address] [place] [address] Dr, [place], [address], 02/08/2024 19:50:36 11/05/19 24 11/05/2023 vrad repor t Patien t Name: Lucita Antony nd Unit #: [id number] Loc: ER Orderi ng Provid er: Accoun t #: [id number] Status : REG ER Primar y Care Provid er: Gary on,Pat jesus Date of Exam: Sex: F : 1949 Age: 73 Exam(s ) PROCED URE INFORM ATION: Exam: XR Chest Exam date and time: 024 12:20 AM Age: 73 years old Clinic al indica tion: Device placem ent; Other: Centra l line; Patien t HX: Post line TECHNI QUE: Imagin g protoc ol: Radiol ogic exam of the chest. Views: 1 view. COMPAR JITENDRA: CR XR PORTAB LE CHEST AP 023 6:34 AM FINDIN GS: Tubes, cathet ers and device s: There is a transv enous pacema ker arisin g from the right senior internal auditor al jugula r vein and presen t. The tip appear s to lie within the right atrium versus right ventri juan. Latera l film would be helpfu l for furthe r evalua tion. Clinic al correl ation is recomm ended. Lungs: There is pulmon geronimo venous conges tion. There is diffus e inters titial edema. Underl jaskaran inflam matory or infect ious proces s not exclud ed. Pleura l spaces : There are no pleura l effusi ons. No eviden ce of pneumo thorax . Heart/ Medias tinum: The heart is enlarg ed. There is promin ence of the medias tinum. Bones/ joints : The skelet al struct ures and soft tissue s show no eviden ce of fractu re or other acute proces ses. Soft tissue s: The soft tissue s of the extrat horaci c region are unrema rkable . IMPRES RONNY: 1. Probab le conges tive heart failur e. Underl jaskaran inflam matory or infect ious proces s not exclud ed. 2. There is a transv enous pacema ker judd g from the right senior internal auditor al jugula r vein and presen t. The tip appear s to lie within the right atrium versus right ventri juan. Latera l film would be helpfu l for furthe r evalua tion. Clinic al correl ation is recomm ended. Dictat ed and Authen ticate d by: Sebastian Russell MD. Orderi ng:Zuhair Berman MD Access ion#=[id number] Ordere d By: CC: ------ ------ ------ ------ ------ ------ ------ ------ ------ ------ ------ ------ ---- Dictat ed By: Report s vrad 0020 0133 Transc ribed By: Di Merge 0020 This is privil eged, confid ential inform ation intend ed only for the provid er named. Any use or distri bution by any person other than this provid er is strict ly prohib ited. If you receiv e this report in error, please notify us immedi ately at and return the origin al report to us at the addres s above. Thank- you. [facility] [address] [place], [address] 11/05/2023 09:28:08 11/05/19 24 11/05/2023 vrad repor t Melinda t Name: Lucita Antony nd Unit #: [id number] Loc: ER Ordermary beth ng Provid er: Accoun t #: [id number] Status : REG ER Primar y Care Provid er: Gary on,Pat jesus Date of Exam: Sex: F : 1949 Age: 73 Exam(s ) PROCED URE INFORM ATION: Exam: XR Chest Exam date and time: 12:24 AM Age: 73 years old Clinic al indica tion: Device placem ent; Patien t HX: Reposi tionin g of centra l line TECHNI QUE: Imagin g protoc ol: Radiol ogic exam of the chest. Views: 1 view. COMPAR JITENDRA: CR XR PORTAB LE CHEST AP 12:20 AM FINDIN GS: Tubes, cathet ers and device s: The right senior internal auditor al jugula r transv enous pacema ker has been reposi tion and appear s to lie at the right atrium . Lungs: There is pulmon geronimo venous conges tion. There is diffus e inters titial edema. Underl jaskaran inflam matory or infect ious proces s not exclud ed. Pleura l spaces : There are no pleura l effusi ons. No eviden ce of pneumo thorax . Heart/ Medias tinum: The heart is enlarg ed. There is promin ence of the medias tinum. Bones/ joints : The skelet al struct ures and soft tissue s show no eviden ce of fractu re or other acute proces ses. Soft tissue s: The soft tissue s of the extrat horaci c region are unrema rkable . IMPRES RONNY: 1. Probab le conges tive heart failur e. Underl jaskaran inflam matory or infect ious proces s not exclud ed. 2. The right senior internal auditor al jugula r transv enous pacema ker has been reposi tion and appear s to lie at the right atrium . Dictat ed and Luz davis d by: Sebastian Russell MD. Orderi ng:PKay Berman MD Access ion#=[id number] Ordere d By: CC: ------ ------ ------ ------ ------ ------ ------ ------ ------ ------ ------ ------ ---- Dictat ed By: Report s vrad 0024 0134 Transc ribed By: Verona Merge 0024 This is privil eged, confid ential inform ation intend ed only for the provid er named. Any use or distri bution by any person other than this provid er is strict ly prohib ited. If you receiv e this report in error, please notify us immedi maximusly at [phone] and return the origin al report to us at the addres s above. Thank- you. [facility] [address], [place], [address] 11/05/2023 09:28:09 11/05/19 24 11/05/2023 x-ray imagi ng sammy Lawrence t Name: Lucita Antony nd Unit #: [id number] Loc: ER Orderi ng Provid er: Andriy Ponce DO Accoun t #: [id number] Status : DEP ER Primar y Care Provid er: Tricia Au Date of Exam: Sex: F Admiss ion Date: : 1949 Age: 73 Exam(s ) XR PORTAB LE CHEST AP POST LINE EXAM: XR PORTAB LE CHEST AP POST LINE CLINIC AL HISTOR Y: post proced ure. TECHNI QUE: 2D digita l imagin g was perfor med. COMPAR JITENDRA: CR,XR XR PORTAB LE CHEST AP from 2022 CR,XR XR PORTAB LE CHEST AP POST LINE from 2023 FINDIN GS: Single AP portab le view. There is a right jugula r transv enous pacema ker wire which appear s coiled in the right atrium . Heart size is upper normal . The medias tinum is not widene d. There is a pulmon geronimo venous hypert ension patter n but no airspa ce pulmon geronimo edema. There are multip le healed left-s ided rib fractu res noted. IMPRES RONNY: As above. Pacema ker wire requir es reposi tionin g DATA REPOSI TORY: RADIAT ION DOSE DELIVE RED: Ordere d By: Andriy Ponce DO CC: ------ ------ ------ ------ ------ ------ ------ ------ ------ ------ ------ ------ - Dictat ed By: Boni Harris M.D. 821 Transc ribed By: Kimberly REYNOSO,Stephanie christopher 821 This is privil eged, confid ential inform ation intend ed only for the provid er named. Any use or distri bution by any person other than this provid er is strict ly prohib ited. If you receiv e this report in error, please notify us immedi maximusly at and return the origin al report to us at the addres s above. Thank- you. [facility] [address] [place], [address] 11/05/2023 09:28:09 11/05/19 24 11/05/2023 x-ray imagi ng repor t Patiharitha t Name: Lucita Antony nd Unit #: [id number] Loc: ER Orderi ng Provid er: Andriy Ponce DO Accoun t #: [id number] Status : DEP ER Primar y Care Provid er: Tricia Au Date of Exam: Sex: F Admiss ion Date: : 1949 Age: 73 Exam(s ) XR PORTAB LE CHEST AP POST LINE EXAM: XR PORTAB LE CHEST AP POST LINE CLINIC AL HISTOR Y: post line. TECHNI QUE: 2D digita l imagin g was perfor med. COMPAR JITENDRA: CR,XR XR PORTAB LE CHEST AP POST LINE from 2023 FINDIN GS: Single AP portab le view. Cardia c pad noted over the left hemith orax. Heart size is upper normal . The medias tinum is not widene d. Distal tip of the right jugula r pacema ker has been reposi tioned and presen tly in satisf actory positi on in the right atrium . Pulmon geronimo venous hypert ension patter n noted. No pleura l effusi ons. No pneumo thorax . Multip le healed left-s ided rib fractu res again noted. IMPRES RONNY: Improv ed positi on of the pacema ker lead. DATA REPOSI TORY: RADIAT ION DOSE DELIVE RED: Ordere d By: Andriy Ponce DO CC: ------ ------ ------ ------ ------ ------ ------ ------ ------ ------ ------ ------ - Dictat ed By: Boni Harris M.D. 822 Transc ribed By: Kimberly REYNOSO,Stephanie white 822 This is privil eged, confid ential inform ation intend ed only for the provid er named. Any use or distri bution by any person other than this provid er is strict ly prohib ited. If you receiv e this report in error, please notify us immedi ately at and return the origin al report to us at the addres s above. Thank- you. [facility] [address], [place], [address] 11/05/2023 09:28:09 11/06/19 24 11/05/2023 x-ray imagi ng sammy t Melinda t Name: Lucita Antony nd Unit #: [id number] Loc: ER Orderi ng Provid er: Andriy Ponce DO Accoun t #: [id number] Status : DEP ER Primar y Care Provid er: Gary onTricia Date of Exam: Sex: F Admiss ion Date: : 1949 Age: 73 Exam(s ) XR PORTAB LE CHEST AP POST LINE EXAM: XR PORTAB LE CHEST AP POST LINE CLINIC AL HISTOR Y: post proced ure. TECHNI QUE: 2D digita l miguelin g was perfor med. COMPAR JITENDRA: CR,XR XR PORTAB LE CHEST AP from 2022 CR,XR XR PORTAB LE CHEST AP POST LINE from 2023 FINDIN GS: Single AP portab le view. There is a right jugula r transv enous pacema ker wire which appear s coiled in the right atrium . Heart size is upper normal . The medias tinum is not widene d. There is a pulmon geronimo venous hypert ension patter n but no airspa ce pulmon geronimo edema. There are multip le healed left-s ided rib fractu res noted. IMPRES RONNY: As above. Pacema ker wire requir es reposi tionin g DATA REPOSI TORY: RADIAT ION DOSE DELIVE RED: Ordere d By: Andriy Ponce DO CC: ------ ------ ------ ------ ------ ------ ------ ------ ------ ------ ------ ------ - Dictat ed By: Boni Harris M.D. 821 Transc ribed By: Kimberly REYNOSO,Stephanie christopher 821 This is privil eged, confid ential inform ation intend ed only for the provid er named. Any use or distri bution by any person other than this provid er is strict ly prohib ited. If you receiv e this report in error, please notify us immedi ately at and return the origin al report to us at the addres s above. Thank- you. [facility] [address] [place], [address] 11/06/2023 08:52:50 11/25/1911/24/2023 XR, chest , 1 view PROCED URE INFORM ATION: Exam: XR Chest Exam date and time: 11/24/19 9:35 PM Age: 73 years old Clinic al indica tion: Dyspne a TECHNI QUE: Imagin g protoc ol: Radiol ogic exam of the chest. Views: 1 view. COMPAR JITENDRA: No releva nt prior studie s availa ble. FINDIN GS: Lungs: Unrema rkable . No consol idatio n. Pleura l spaces : Unrema rkable . No pleura l effusi on. No pneumo thorax . Heart/ Medias tinum: Unrema rkable . No cardio megaly . Bones/ joints : Chroni c left rib fractu re deform ities. IMPRES RONNY: No acute findin gs. Report signed by: Ed Anderson On 2023 00:18: [address] [place], [place], [address], 11/25/2023 07:01:58 12/17/19 24 12/17/2023 XR, chest , 1 view PROCED URE INFORM ATION: Exam: XR Chest Exam date and time: 024 4:43 PM Age: 73 years old Clinic al indica tion: Left chest pain TECHNI QUE: Imagin g protoc ol: Radiol ogic exam of the chest. Views: 1 view. COMPAR JITENDRA: CR XR CHEST 1 VW 11/24/19 24 9:35 PM FINDIN GS: Lungs: Unrema rkable . No consol idatio n. Pleura l spaces : Unrema rkable . No pleura l effusi on. No pneumo thorax . Heart/ Medias tinum: Unrema rkable . No cardio megaly . Bones/ joints : Unrema rkable . IMPRES RONNY: No acute findin gs. Report signed by: Jesus Ramirez On 2023 17:26: [address], [place], [address], 12/18/2023 07:26:37 02/24/20 24 02/24/2024 CT imagi mimi bhat Name: Lucita Antony nd Unit #: [id number] Loc: ER Luis E le Provid er: Aashish Bills Accoun t #: [id number] Status : PRE ER Primar y Care Provid er: Gary on,Tricia lee Date of Exam: Sex: F : 1949 Age: 73 Exam(s ) a CT:CT head cervic al spine wo Exam(s ) CT HEAD CERVIC AL SPINE WO EXAM: CT HEAD CERVIC AL SPINE WO CLINIC AL HISTOR Y: fall at home, on thinne rs, head neck pain. TECHNI QUE: Imagin g Protoc ol: Axial comput ed tomogr aphy images with wilson l and sagitt al reform atted images were create d and review ed COMPAR JITENDRA: No exams were availa ble for compar jitendra FINDIN GS: BRAIN: There are no skull fractu res nor fluid in the visual ized parana huseyin sinuse s. There is no eviden ce of intrac ranial hemorr la, mass effect , or shift of midlin e struct ures. There are no extra- axial fluid collec tions. The ventri cles are not enlarg ed or shifte d and there is no blood within the ventri cular system nor within the basal cister ns. CERVIC AL SPINE: There is no eviden ce of fractu re nor listhe sis. No signif icant prever tebral soft tissue swelli ng. C1 arch and odonto id proces s appear unrema rkable . Disc spaces are well mainta ined. Facet joints appear unrema rkable . No obviou s degene rative change s. There is no signif icant facet joint malali gnment . Howeve r, there is an abnorm al lucent area in the left side of the C 4 verteb ral body and pedicl e which appear s possib ly lytic, this measur ing 11 mm wide by 9 mm AP by 7 mm cranio caudal . IMPRES RONNY: No acute intrac ranial findin gs on this noninf used CT scan of the brain. No eviden ce of acute cervic al spine fractu re, malali gnment , nor acute compro mise of the cervic al spinal canal. Incide ntally noted is an abnorm al lucent area in the left side of C4 verteb ral body measur ing 11 x 9 x 7 mm. This may be lytic. RADIAT ION DOSE DELIVE RED: 1,306. 19mGy. cm Total DLP DATA REPOSI TORY: All CT scans at this facili ty are submit brent to the Nation al Radiol ogy Data Regist ry (NRDR) Dose Index Regist ry (DIR) with the Americ renetta mock of Radiol ogjerrod (ACR). RADIAT ION OPTIMI ZATION : All CT scans at this facili ty use at least one of these dose optimi zation techni ques: automa brent exposu re contro l; mA and/or kV adjust ment per patien t size (inclu shiv target ed exams where dose is matche d to clinic al indica tion); or iterat juan jose recons tructi on. 041: Total DLP = 0.00 mGy-cm Ordere d By: Aashish Bills CC: ------ ------ ------ ------ ------ ------ ------ ------ ------ ------ ------ ------ ---- Dictat ed By: Boni Harris M.D. 1923 Transc ribed By: Kimberly REYNOSO,Stephanie white 1923 This is privil eged, confid ential inform ation intend ed only for the provid er named. Any use or distri bution by any person other than this provid er is strict ly prohib ited. If you receiv e this report in error, please notify us immedi maximusly at and return the origin al report to us at the addres s above. Thank- you. INTERFACE [facility] [address], [place], [address] 02/24/2024 19:28:20 Result Notes Documentation Provider Name and Address Organization Details Recorded Time Xr, Chest, 1 View : PROCEDURE INFORMATION: Exam: XR Chest Exam date and time: 11/24/2023 9:35 PM Age: 73 years old Clinical indication: Dyspnea TECHNIQUE: Imaging protocol: Radiologic exam of the chest. Views: 1 view. COMPARISON: No relevant prior studies available. FINDINGS: Lungs: Unremarkable. No consolidation. Pleural spaces: Unremarkable. No pleural effusion. No pneumothorax. Heart/Mediastinum: Unremarkable. No cardiomegaly. Bones/joints: Chronic left rib fracture deformities. IMPRESSION: No acute findings. Report signed by: Guillermo Anderson On 11/25/2023 00:18:[address], [place], [address], [facility] 11/25/2023 07:01:58 Xr, Chest, 1 View : PROCEDURE INFORMATION: Exam: XR Chest Exam date and time: 12/17/2023 4:43 PM Age: 73 years old Clinical indication: Left chest pain TECHNIQUE: Imaging protocol: Radiologic exam of the chest. Views: 1 view. COMPARISON: CR XR CHEST 1 VW 11/24/2023 9:35 PM FINDINGS: Lungs: Unremarkable. No consolidation. Pleural spaces: Unremarkable. No pleural effusion. No pneumothorax. Heart/Mediastinum: Unremarkable. No cardiomegaly. Bones/joints: Unremarkable. IMPRESSION: No acute findings. Report signed by: Jesus Ramirez On 12/17/2023 17:26:[address], [place], [address], [facility] 12/18/2023 07:26:38 Problems Name Problem SNOMED Code Status Onset Date Resolution Date Notes Provider Name and Address Organization Details Recorded Time Hyperlip idemia 87674046 Active 195909/24/19 23 - Comments only - Roz Camilo RPA - She continue s on statin. No change made today. Problem Code: E78.5; Problem Code Type: ICD-10; Not Available [facility] 3 04:12:27 [facility] hyperten ronny 36090629 Active 195905/06/20 22 - Comments only - Roz Camilo RPA - Reasonab le controll ed on current medicait on manageme nt. No changes made today. Problem Code: I10; Problem Code Type: ICD-10; Not Available [facility] 3 04:12:27 Neuropat hy due to type 2 diabetes mellitus 46932078961 9106 Active 2011 Problem Code: E11.40; Problem Code Type: ICD-10; Not Available [facility] 3 04:12:27 History of malignan t melanoma of the skin 83768168557 8 Active 2010 Problem Code: Z85.820; Problem Code Type: ICD-10; Not Available [facility] 3 04:12:27 Seronega tive rheumato id arthdipak s 169409587 Active 1996 Problem Code: M06.00; Problem Code Type: ICD-10; Not Available [facility] 3 04:12:27 Paroxysm al atrial fibrilla tion 931399572 Active 201401/13/20 23 - Comments only - Roz Camilo RPA - This continue s to be rate controll ed. She is on anticoag ulation. No changes to medicati on manageme nt made today. Problem Code: I48.0; Problem Code Type: ICD-10; Not Available [facility] 3 04:12:27 Retentio n of urine 700524233 Completed 201502/12/2016 12/31/19 16 - Comments only - Lana Ramos MD - We'll continue to use bladder scanning and when necessar y straight catheter . Hopefull y this will improve over the next 24-48 hours. Problem Code: R33.9; Problem Code Type: ICD-10; Not Available [facility] 3 04:12:28 History of fracture 228952476 Active 2015 Problem Code: Z87.81; Problem Code Type: ICD-10; Not Available [facility] 3 04:12:28 Hearing loss 12185760 Active 2019 Problem Code: H91.90; Problem Code Type: ICD-10; Not Available [facility] 3 04:12:28 Retentio n of urine 607637736 Active 202005/06/20 22 - Comments only - Roz Camilo RPA - Supra pubic cath getting rouine changes. no recent uti's. Problem Code: R33.9; Problem Code Type: ICD-10; Not Available [facility] 3 04:12:28 Visual disturba nce 18457447 Active 202002/22/20 21 - Comments only - oRz Camilo RPA - mild nonprofl ierative diabetic rethinop athy on 11/2020 exam Problem Code: H53.9; Problem Code Type: ICD-10; Not Available [facility] 3 04:12:28 Anemia 558243211 Active 2020 Problem Code: D64.9; Problem Code Type: ICD-10; [address], [place], [address] , [facility] 4 11:40:45 Chronic kidney disease stage 3A 521041673 Active 2021 Problem Code: N18.31; Problem Code Type: ICD-10; Not Available [facility] 3 04:12:28 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 Schedule d for suprapub ic cath change today. Not Available [facility] 3 04:12:28 Cerebral infarcti on 754827370 Active 202201/13/20 23 - Comments only - Roz Camilo RPA - Presente d 2 weeks ago with ascendin g numbness of her left side. Mild persiste nt loss in strength . Numbness has subsided . She is taking a daily baby aspirin. We will titrate atorvast atin to 80 mg daily. Schedule carotid ultrasou nd. She is receivin g occupati onal therapy, physical therapy, and speech therapy at home. She has mild left foot drop on exam. Reviewed tripping hazards. Problem Code: I63.9; Problem Code Type: ICD-10; Not Available [facility] 3 04:12:29 Pressure injury of buttock 824997999 Active 2022 Problem Code: L89.309; Problem Code Type: ICD-10; Not Available [facility] 3 04:12:29 Diabetes mellitus 17032380 Completed 200912/05/2014 Not Available [facility] 3 04:12:31 Fatigue 64452644 Completed 201803/12/2021 Problem Code: R53.83; Problem Code Type: ICD-10; Not Available [facility] 3 04:12:31 Screenin g for malignan t neoplasm of colon Completed 201803/12/2021 Problem Code: Z12.11; Problem Code Type: ICD-10; Not Available [facility] 3 04:12:31 Malignan t melanoma of skin 71701526 Completed 201003/18/2023 Problem Code: 172.9; Problem Code Type: ICD-9; Not Available [facility] 3 04:12:31 Screenin g mammogra phy Completed 201409/06/2021 Problem Code: Z12.31; Problem Code Type: ICD-10; Not Available [facility] 3 04:12:32 Gastroes ophageal reflux disease without esophagi tis 356103141 Completed 195909/06/2021 Problem Code: K21.9; Problem Code Type: ICD-10; Not Available [facility] 3 04:12:32 Supraven tricular tachycar enid 0121261 Completed 199509/06/2021 Problem Code: I47.1; Problem Code Type: ICD-10; Not Available [facility] 3 04:12:32 Anemia 352545361 Completed 201703/12/2021 Problem Code: D64.9; Problem Code Type: ICD-10; [address], [place], [address] , [facility]. 4 11:40:45 General unsteadi ness 484330518 Completed 201809/06/2021 Problem Code: R26.81; Problem Code Type: ICD-10; Not Available [facility] 3 04:12:32 Heart murmur 23454860 Completed 199703/12/2021 Not Available [facility] 3 04:12:33 Pain of left shoulder joint 49091962024 307433 Completed 201703/12/2021 Problem Code: M25.512; Problem Code Type: ICD-10; Not Available [facility] 3 04:12:33 Type 2 diabetes mellitus without complica tion 452813678 Completed 199503/18/2023 05/24/20 21 - Comments only - Roz Ton RPA - Fragile diabetic . She recogniz es her low blood sugars. Trial of Jardianc e in the morning. She relies on suprapub ic cath for urinatio n. I reviewed the side effect profile. Problem Code: E11.9; Problem Code Type: ICD-10; Not Available [facility] 3 04:12:33 Rheumato id arthriti s 83229008 Completed 199603/18/2023 Problem Code: 714.0; Problem Code Type: ICD-9; Not Available [facility] 3 04:12:33 Skin ulcer due to type 2 diabetes mellitus 18429040290 9101 Completed 202109/23/2022 Problem Code: E11.622; Problem Code Type: ICD-10; Not Available [facility] 3 04:12:33 Pernicio us anemia 37969148 Completed 201103/26/2015 Not Available [facility] 3 04:12:33 Urinary tract infectio us disease 25383232 Completed 202109/23/2022 Problem Code: N39.0; Problem Code Type: ICD-10; Not Available [facility] 3 04:12:34 Renal function tests outside referenc e range 713435716 Completed 201703/12/2021 Problem Code: R94.4; Problem Code Type: ICD-10; Not Available [facility] 3 04:12:34 Peripher al nerve disease 927645042 Completed 201103/18/2023 Not Available [facility] 3 04:12:35 Dyssomni a 78576185 Completed Not Available [facility] 3 04:12:35 Urinary tract infectio us disease 77017580 Completed 199712/07/2020 Problem Code: 599.0; Problem Code Type: ICD-9; Not Available [facility] 3 04:12:35 History of artifici al eye lens 708960549 Completed 200209/06/2021 Problem Code: Z96.1; Problem Code Type: ICD-10; Not Available [facility] 3 04:12:36 Menorrha kathia 105050696 Completed 199509/06/2021 Not Available [facility] 3 04:12:36 Disorder of tongue 62541955 Completed 201803/12/2021 Problem Code: K14.8; Problem Code Type: ICD-10; Not Available [facility] 3 04:12:36 Hyperten sive disorder 33077226 Completed Not Available [facility] 3 04:12:36 Bilatera l cataract s 20332603 Completed 200203/18/2023 Not Available [facility] 3 04:12:36 Rheumati c fever 43566881 Completed Not Available [facility] 3 04:12:37 Conducti on disorder of the heart 55398809 Completed 199503/18/2023 Problem Code: 427.9; Problem Code Type: ICD-9; Not Available [facility] 3 04:12:37 Gastroes ophageal reflux disease 238299925 Completed Not Available [facility] 3 04:12:37 Cellulit is of left lower limb 00936517545 466531 Active [address], [place], [address] , [facility]. 3 13:01:35 Problem Notes None recorded. Procedures Surgical History None recorded. Imaging Results Imaging Date Name Status LastModified by Organiz ation Details LastModified Time 11/05/2023 vrad report [email or web address] [facility] [address] , [place], [address] 11/05/2023 09:28:08 11/05/2023 vrad report completed [address] [place], [address] 11/05/2023 09:28:09 11/05/2023 x-ray imaging report completed [address] [place], [address] 11/05/2023 09:28:09 11/05/2023 x-ray imaging report completed [address] [place], [address] 11/05/2023 09:28:09 11/05/2023 x-ray imaging report completed [address] [place], [address] 11/06/2023 08:52:50 11/24/2023 XR, chest, 1 view completed [address] [place], [address], 11/25/2023 07:01:58 12/17/2023 XR, chest, 1 view completed [address] [place], [address], 12/18/2023 07:26:37 02/24/2024 CT imaging report active INTERFACE [address] [place], [address] 02/24/2024 19:28:20 Procedure Notes None recorded. Medical Equipment None Reported. Allergies Allergen ID Allergen Name Allergen Category Reaction Reaction Severity Criticality Documentation Date Start Date Code Code System Note Provider Name and Address Organization Details Recorded Time 82806 trazodone medicatio n hallucina tions Not available Not available 05/01/20232004 58068 RxNorm HALLU CINAT IONS Not Available [facility] 16:18:57 Medications Name Sig Start Date Stop Date Status Note LastModified by Organization Details LastModified Time aspirin 81 mg capsule Take 1 capsule by mouth active s/p suspecte d cva 12/2022 Not Available Not Available Not Available clotrimaz ole 10 mg ara Dissolve 1 lozenge in mouth five times a day 01/13 completed Not Available Not Available Not Available metformin 500 mg tablet Take 1 tablet twice a day by oral route with meal(s), for diabetes . active Not Available Not Available No t Available Lopressor 50 mg tablet 1TAB bid 05/09 completed Not Available Not Available Not Available atorvasta tin 80 mg tablet Take 1 tablet every day by oral route at bedtime. active Not Available Not Available No t Available magnesium 500 mg tablet 1TAB tid 06/12 completed Not Available Not Available Not Available atorvasta tin 20 mg tablet TAKE ONE TABLET BY MOUTH EVERY DAY 02/08 completed Not Available Not Available Not Available Lopressor 100 mg tablet 1TAB in the morning 12/28 completed Not Available Not Available Not Available diltiazem ER 180 mg capsule,2 4 hr,extend ed release TAKE 1 CAPSULE BY MOUTH EVERY DAY 2018 active [facility] Armaan Renteria Generic name Taztia Not Available Not Available Not Available desoximet asone 0.05 % topical cream APPLY TO LOWER LEGS TWO TIMES A DAY NEEDED FOR REDNESS AND ITCHING 01/05 completed Not Available Not Available Not Available metoprolo l succinate ER 100 mg tablet,ex tended release 1CAP bid 07/24 completed Not Available Not Available Not Available cefpodoxi me 200 mg tablet TAKE 1 TABLET BY MOUTH TWO TIMES A DAY; MUST ADMINIST ER WITH MEAL/NICOLE D 05/28 completed Not Available Not Available Not Available diltiazem CD 240 mg capsule,e xtended release 24 hr TAKE ONE CAPSULE BY MOUTH EVERY DAY 10/29 completed Not Available Not Available Not Available fluconazo le 200 mg tablet TAKE ONE TABLET BY MOUTH EVERY 48 HOURS UNTIL COMPLETE D active Not Available Not Available No t Available metoprolo l succinate ER 200 mg tablet,ex tended release 24 hr take 0.5 tab BID. 2014 active Not Available Not Available Not Avai lable glipizide 10 mg tablet Take 1 tab by mouth daily 11/25 completed Not Available Not Available Not Available metoprolo l succinate ER 100 mg tablet,ex tended release 24 hr Take 3 tablets every day by oral route, for your heart. 2023 active Not Available Not Available Not Avai lable Lantus U-100 Insulin 100 unit/mL subcutane ous solution 35 units SQ qhs 03/26 completed Not Available Not Available Not Available cyanocoba steve (vit B-12) 1,000 mcg tablet TAKE ONE TABLET BY MOUTH EVERY DAY active Not Available Not Available No t Available diltiazem ER 240 mg capsule,2 4 hr,extend ed release Take 1 capsule by mouth once a day 12/10 completed [facility] Armaan Renteria Generic name Taztia Not Available Not Available Not Available diltiazem ER 300 mg capsule,2 4 hr,extend ed release TAKE ONE CAPSULE BY MOUTH EVERY DAY 01/05 completed Not Available Not Available Not Available ciproflox acin 250 mg tablet TAKE ONE TABLET BY MOUTH EVERY 12 HOURS 06/18 completed Not Available Not Available Not Available ciproflox acin 500 mg tablet TAKE ONE TABLET BY MOUTH EVERY 12 HOURS FOR 7 DAYS 01/05 completed Not Available Not Available Not Available sulfameth oxazole 800 mg-trimet hoprim 160 mg tablet Take 1 tablet by mouth twice a day 07/17 completed Not Available Not Available Not Available aspirin 81 mg tablet,de layed release Take 1 tablet every day by oral route. 2023 active Not Available Not Available Not Avai lable triamcino lone acetonide 0.1 % topical cream crm BID 03/14 completed Not Available Not Available Not Available Celebrex 200 mg capsule Take 1 by mouth daily (d/c at [facility]) 12/15 completed Not Available Not Available Not Available Mobic 15 mg tablet 1 tab dialy 12/25 completed Not Available Not Available Not Available magnesium oxide 400 mg (241.3 mg magnesium ) tablet TAKE ONE TABLET BY MOUTH EVERY DAY 11/25 completed Not Available Not Available Not Available glyburide 5 mg-metfor min 500 mg tablet Take 1 tab twice daily. 2014 active Not Available Not Available Not Avai lable Precose 25 mg tablet 1TAB tid 05/19 completed Not Available Not Available Not Available diltiazem ER 120 mg capsule,2 4 hr,extend ed release Take 2 capsules one time a day 2013 active [facility] Not Available Not Available Not Avai lable calcitoni n (salmon) 200 unit/actu ation nasal spray 1 spray once a day 09/06 completed Not Available Not Available Not Available Glucotrol XL 10 mg tablet,ex tended release 1TAB .bid 05/19 completed Not Available Not Available Not Available cephalexi n 500 mg capsule Take 1 capsule by mouth four times a day 06/19 completed Not Available Not Available Not Available simvastat in 20 mg tablet take 1 tablet by mouth once daily 2017 active Not Available Not Available Not Avai lable ferrous sulfate 325 mg (65 mg iron) tablet Take 1 tablet by mouth once a day 05/24 completed Not Available Not Available Not Available metformin 1,000 mg tablet TAKE ONE TABLET BY MOUTH TWICE A DAY 11/24 completed 11/17/23 discharg e at half-dos ing per [facility] Not Available Not Available Not Available lisinopri l 10 mg tablet TAKE ONE TABLET BY MOUTH EVERY DAY 01/05 completed Not Available Not Available Not Available oxycodone 5 mg capsule ONE TABLET q 3 hours as needed for pain 01/15 completed Not Available Not Available Not Available Magnesium -Oxide 400 mg tablet TAKE 1 TABLET BY MOUTH EVERY DAY 2019 active Not Available Not Available Not Avai lable omeprazol e 20 mg capsule,d elayed release Take 1 capsule every day by oral route, for acid reflux. active Not Available Not Available No t Available cephalexi n 500 mg tablet Take 1 tablet every 6 hours by oral route for 7 days. 09/02 completed Not Available Not Available Not Available metoprolo l succinate ER 200 mg tablet,ex tended release 0.5cap bid 10/13 completed Not Available Not Available Not Available diltiazem CD 120 mg capsule,e xtended release 24 hr TAKE ONE CAPSULE BY MOUTH EVERY DAY 2020 active Not Available Not Available Not Avai lable magnesium 250 mg tablet 1 daily 12/14 completed Not Available Not Available Not Available lisinopri l 5 mg tablet 1TAB qd DM 07/03/ 2013 12/22 /2014 completed Not Available Not Available Not Available furosemid e 20 mg tablet TAKE ONE TABLET BY MOUTH EVERY MORNING 11/25 completed Stopped by [facility] 11/26/23 Not Available Not Available Not Available Diltiazem HCL ER 120 mg capsule,e xtended release 1CAP daily 10/27 completed Not Available Not Available Not Available nystatin 100,000 unit/gram topical powder APPLY TO AFFECTED AREA(S) TWO TIMES A DAY active Not Available Not Available No t Available SSD 1 % topical cream APPLY A THIN FILM TO LEFT LOWER LEGS WITH DAILY DRESSING CHANGESE active Not Available Not Available No t Available metformin ER 500 mg tablet,ex tended release 24 hr Take 1 tablet by mouth twice a day 02/14 completed Not Available Not Available Not Available Actos 30 mg tablet 1 .qd dm 12/28 completed Not Available Not Available Not Available ciclopiro x 0.77 % topical cream APPLY TO AFFECTED AND SURROUND ING AREAS OF SKIN TOPICALL Y TWO TIMES A DAY IN THE MORNING AND EVENING active Not Available Not Available No t Available Novolog FlexPen U-100 Insulin aspart 100 unit/mL (3 mL) subcutane ous INJECT 12 UNITS SUBCUTAN EOUSLY WITH MEALS DIRECTED 12/07 completed Not Available Not Available Not Available OneTouch UltraSoft Lancets Use 1 lancet subcutan eously three times a day 12/05 completed Not Available Not Available Not Available BD Ultra-Fin e Mini Pen Needle 31 gauge x 3/16 Inject three times a day 08/13 completed Not Available Not Available Not Available Byetta 10 mcg/dose( 250 mcg/mL)2. 4 mL subcutane ous pen injector inj bid 12/28 completed Not Available Not Available Not Available metronida zole 1 % topical gel APPLY A THIN LAYER TOPICALL Y TO FACE DAILY UNTIL RASH RESOLVES 09/23 completed Not Available Not Available Not Available Lantus U-100 Insulin INJ SQ at bedtime 08/22 completed Not Available Not Available Not Available Novolog U-100 Insulin aspart tidwith meals 06/23 completed Not Available Not Available Not Available Vitamin B12 1,000 mcg daily active Not Available Not Available No t Available calcium carbonate 600 mg-vitami n D3 10 mcg (400 unit) tablet Take 2 tablets every day by oral route. 2023 active Not Available Not Available Not Avai lable FreeStyle Lite Strips test qid 08/11 completed Not Available Not Available Not Available magnesium oxide 500 mg capsule 1 tab three times a day (d/c at [facility]) 06/01 completed Not Available Not Available Not Available Lantus Solostar U-100 Insulin 100 unit/mL (3 mL) subcutane ous pen Inject 50 unit subcutan eously once a day active Not Available Not Available No t Available Humalog KwikPen (U-100) Insulin 100 unit/mL subcutane ous INJECT 12 UNITS UNDER THE SKIN BEFORE BREAKFAS T AND 12 UNITS BEFORE DINNER DIRECTED active Not Available Not Available No t Available omeprazol e 20 mg tablet,de layed release Take 1 by mouth once a day 01/11 completed Not Available Not Available Not Available Calcium 500 + D (D3) 1 tab po qd 2019 active Not Available Not Available Not Avai lable Xarelto 15 mg tablet TAKE ONE TABLET BY MOUTH EVERY DAY 11/25 completed dose increase d Not Available Not Available Not Available Xarelto 20 mg tablet Take 1 tablet every day by oral route at dinner, for your heart. active Not Available Not Available No t Available OneTouch Verio test strips Use 1 strip via meter three times a day as directed 2022 active Not Available Not Available Not Avai lable Unifine Pentips Plus 31 gauge x 1/4 needle to use with flexpen daily injectio ns 2014 active Not Available Not Available Not Avai lable Farxiga 5 mg tablet Take 1 tablet every day by oral route, for diabetes . active Not Available Not Available No t Available Levemir FlexTouch U-100 Insulin 100 unit/mL (3 mL) subcutane ous pen inject 40 units sub Q at bedtime 2015 active [facility] Not Available Not Available Not Avai lable Jardiance 10 mg tablet Take 1 tablet every day by oral route in the morning, for diabetes . 2023 active Not Available Not Available Not Avai lable Trulicity 1.5 mg/0.5 mL subcutane ous pen injector INJECT 1 PEN SUBCUTAN EOUSLY ONCE A WEEK 01/05 completed Not Available Not Available Not Available Trulicity 0.75 mg/0.5 mL subcutane ous pen injector Inject 0.75 mg every week by subcutan eous route. 11/30 completed NOT taking. Didn't think it helped Not Available Not Available Not Available Tresiba FlexTouch U-200 insulin 200 unit/mL (3 mL) subcutane ous pen Take 45 unit once a day 05/10 completed taking 20 units daily Not Available Not Available Not Available OneTouch Verio Flex Meter USE THREE TIMES A DAY DIRECTED active Not Available Not Available No t Available TechLITE Pen Needle 31 gauge x 5/16 USE SUBCUTAN EOUSLY THREE TIMES A DAY active Not Available Not Available No t Available Ozempic 1 mg/dose (2 mg/1.5 mL) subcutane ous pen injector Take 1mg subcutan eously weekly 05/13 completed Not Available Not Available Not Available magnesium 400 mg (as magnesium oxide) tablet Take 1 tablet every day by oral route. 09/02 completed duplicat e Not Available Not Available Not Available OneTouch Delica Plus Lancet 33 gauge TEST BLOOD SUGAR FOUR TIMES A DAY active Not Available Not Available No t Available Vitals Date Recorded Body height Body mass index (BMI) Body weight Body temperature Respiratory rate Heart rate Systolic blood pressure Diastolic blood pressure Provider Name and Address Organization Details Last Updated DateTime 3 166.598 6 cm 32.3 kg/m2 15632.1 3 g 97.9 [degF] 16 /min 108 /min 136 mm[Hg] 70 mm[Hg] HONG ABDUL RN [facility] 3 11:05:33 Date Recorded Body height Body mass index (BMI) Body weight Body temperature Oxygen saturation Oxygen saturation in Arterial blood by Pulse oximetry Respiratory rate Heart rate Systolic blood pressure Diastolic blood pressure Provider Name and Address Organization Details Last Updated DateTime 4 166.598 6 cm 31.2 kg/m2 39122.1 4 g 98.7 [degF] 97 % 97 % 18 /min 110 /min 126 mm[Hg] 65 mm[Hg] JERSEY DENNIS RN [facility] 4 10:05:01 Date Recorded Body height Body mass index (BMI) Body weight Body temperature Oxygen saturation Oxygen saturation in Arterial blood by Pulse oximetry Heart rate Respiratory rate Systolic blood pressure Diastolic blood pressure Provider Name and Address Organization Details Last Updated DateTime 4 166.598 6 cm 29.4 kg/m2 85733.6 3 g 98.6 [degF] 99 % 99 % 78 /min 14 /min 110 mm[Hg] 72 mm[Hg] JERSEY DENNIS RN [facility] 4 14:07:26 Date Recorded Body height Body mass index (BMI) Body weight Body temperature Oxygen saturation Oxygen saturation in Arterial blood by Pulse oximetry Respiratory rate Systolic blood pressure Diastolic blood pressure Provider Name and Address Organization Details Last Updated DateTime 4 166.598 6 cm 29.9 kg/m2 79524.4 g 98.4 [degF] 98 % 98 % 15 /min 132 mm[Hg] 78 mm[Hg] JERSEY DENNIS RN [facility], [facility] 4 11:29:31 Social History Question Answer Notes LastModified by Organizat ion Details LastModified Time Tobacco Smoking Status Former Smoker HONG ABDUL RN [facility], [facility], [facility] 05/28/2023 11:13:14 When Did You Quit Smoking? 14+yearssi ncelastcig arette Information not available 05/28/2023 Date Care Plan Printed: 10/27/2023 Information not available 10/27/2023 Assigned Underground Electrician: Henna Quigley RN [email or web address] Information not available 10/27/2023 Is [facility] The Lead Underground Electrician? No [place] [facility] [place] Information not available 10/27/2023 Level Of Intensity: Monthly Information not available 12/01/2023 Team Based Care: Yes Informat ion not available 10/27/2023 Hearing Barrier No Informati on not available 10/27/2023 Vision Barrier No Informatio n not available 10/27/2023 Social Barrier Yes Informatio n not available 10/27/2023 Medical Literacy Yes Informat ion not available 10/27/2023 Other Barriers To Care (See Note) No Information not available 10/27/2023 Learning Barrier Yes Informat ion not available 10/27/2023 Last Care Team Meeting 12/01/2023 Home Health Team Meeting On 11/05/23 COA On 11/17/23 COA And SAS 12/01/23 Information not available 12/01/2023 Transportation Barrier No Takes RCT Bus Route Information not available 10/27/2023 Financial Barrier Yes Is Behind In Rent, Is Involved With Financial [employer] Information not available 10/27/2023 Behavioral Health Yes Informa tion not available 10/27/2023 Community Electronic Systems Security Assessment Yes Information not available 10/27/2023 Dental Services No Informati on not available 10/27/2023 Diabetes Education Yes Inform ation not available 10/27/2023 Food Resources No Informatio n not available 10/27/2023 Fuel Assistance No Informati on not available 10/27/2023 Hospice No Information no t available 10/27/2023 Housing Yes Information no t available 10/27/2023 Insurance Enrollment Yes Information not available 10/27/2023 [facility] Care No Informatio n not available 10/27/2023 Meals On Wheels No Informati on not available 10/27/2023 Medication Assistance No Information not available 10/27/2023 Physical Activity Programs No Information not available 10/27/2023 Long Term Yes Informati on not available 10/27/2023 Social Security/Disabilit y No Information not available 10/27/2023 Transportation Yes Informatio n not available 10/27/2023 Chronic Disease Management No Information not available 10/27/2023 Chronic Pain Management No Information not available 10/27/2023 Diabetes Prevention Program No Information n ot available 10/27/2023 Diabetes Self Management Program No Information n ot available 10/27/2023 Diabetes Support Group No Information not available 10/27/2023 Health Commercial Service Technician For HTN Control No Information not available 10/27/2023 Tobacco Cessation No Informa tion not available 10/27/2023 Weight Loss Program No Information not available 10/27/2023 WRAP No Information no t available 10/27/2023 AHS (Colorer) No Information not available 10/27/2023 Adult Protective Services No Information not available 10/27/2023 BAART No Information no t available 10/27/2023 Community Behavioral Services Yes Information not available 10/27/2023 Community Restorative Justice No Information not available 10/27/2023 DCF No Information no t available 10/27/2023 Department Of Labor No Information not available 10/27/2023 Economic Services No Informa tion not available 10/27/2023 EMS No Information no t available 10/27/2023 [place] Support Services No Information not available 10/27/2023 HireAbility No Information n ot available 10/27/2023 [facility] No Information not available 10/27/2023 NECKA No Information no t available 10/27/2023 NEKYS No Information no t available 10/27/2023 RCT Yes Information no t available 10/27/2023 Rural Edge No Information no t available 10/27/2023 Sa[employer]ida No Information no t available 10/27/2023 School Counselor No Informat ion not available 10/27/2023 School Nurse No Information not available 10/27/2023 Umbrella No Information no t available 10/27/2023 VCCi No Information no t available 10/27/2023 [place] [facility] No Information not available 10/27/2023 Newspaper Manager On Aging Yes Informat ion not available 10/27/2023 Designated Agency No Informa tion not available 10/27/2023 Home Health Agency Yes Inform ation not available 10/27/2023 Providers Yes Information no t available 10/27/2023 SASH Yes Information no t available 10/27/2023 Other Support System Yes Bridget Is A Huge Support And Friend To Hope Information not available 10/27/2023 At What Age Did You Start Smoking Tobacco? 13 Information not available 05/28/2023 Do You Or Have You Ever Used Any Other Forms Of Tobacco Or Nicotine? No Information not available 05/28/2023 Sex: Female Functional Status None recorded. Mental Status None recorded. Family History Nothing Reported Notes:*Problem: Multiple Scl erosis Diabetes Mellitus Type 2 Apparently no cancers or heart disease Medical History No medical history recorded. Gynecological HistoryNo gynecological history recorded. Obstetrics History GPAL:G 0 P 0 0 0 0 Immunizations Vaccine Type Date Status Provider Name and Address Organization Details Recorded Time COVID-19, mRNA, LNP-S, PF, ezio-sucrose, 30 mcg/0.3 mL 10/27/2023 completed JERSEY DENNIS RN [facility], [place] [facility] 10/27/2023 12:03:12 Td (adult), 5 Lf tetanus toxoid, preservative free, adsorbed 04/13/2018 completed Not Available [facility] 05/01/2023 04:09:41 Tdap 10/20/2006 completed Not Available [facility] 04:09:42 zoster live 03/26/2015 completed Not Available [facility] 05/01/2023 04:09:42 Pneumococcal conjugate PCV 13 04/13/2018 completed Not Available [facility] 05/01/2023 04:09:42 Influenza, high-dose, trivalent, PF 04/21/2019 completed Not Available [facility] 05/01/2023 04:09:43 Influenza, high-dose, trivalent, PF 05/06/2016 completed Not Available [facility] 05/01/2023 04:09:43 Td(adult) unspecified formulation 06/22/1994 completed Not Available [facility] 05/01/2023 04:09:43 Influenza, split virus, trivalent, preservative 03/26/2015 completed Not Available [facility] 05/01/2023 04:09:43 Influenza, split virus, quadrivalent, preservative 03/16/2017 completed Not Available [facility] 05/01/2023 04:09:43 Influenza, adjuvanted, trivalent, PF 03/01/2018 completed Not Available [facility] 05/01/2023 04:09:43 Influenza, high-dose, quadrivalent, PF 03/12/2021 completed Not Available [facility] 05/01/2023 04:09:43 Influenza, high-dose, quadrivalent, PF 05/06/2022 completed Not Available [facility] 05/01/2023 04:09:44 COVID-19, mRNA, LNP-S, PF, 100 mcg/0.5mL dose or 50 mcg/0.25mL dose 11/01/2021 completed Not Available [facility] 05/01/2023 04:09:44 COVID-19, mRNA, LNP-S, PF, 100 mcg/0.5mL dose or 50 mcg/0.25mL dose 05/24/2021 completed Not Available [facility] 05/01/2023 04:09:44 SARS-COV-2 (COVID-19) vaccine, UNSPECIFIED 09/14/2020 completed Not Available [facility] 05/01/2023 04:09:45 COVID-19, mRNA, LNP-S, bivalent, PF, 30 mcg/0.3 mL dose 09/23/2022 completed Not Available [facility] 05/01/20 04:09:45 pneumococcal polysaccharide PPV23 04/21/2019 completed Not Available [facility] 2022 04:09:46 influenza, unspecified formulation 02/12/2012 completed Not Available [facility] 05/01/2023 04:09:46 influenza, unspecified formulation 02/25/2013 completed Not Available [facility] 05/01/2023 04:09:46 influenza, unspecified formulation 02/28/2011 completed Not Available [facility] 05/01/2023 04:09:46 influenza, unspecified formulation 03/08/2020 completed Not Available [facility] 05/01/2023 04:09:46 influenza, unspecified formulation 03/14/2014 completed Not Available [facility] 05/01/2023 04:09:46 influenza, unspecified formulation 03/22/2010 completed Not Available [facility] 05/01/2023 04:09:46 Influenza, high-dose, quadrivalent, PF 05/28/2023 completed ROZ CAMILO PA-C [address], [place], [address], [facility] 05/28/2023 13:29:03 COVID-19, mRNA, LNP-S, PF, ezio-sucrose, 30 mcg/0.3 mL 05/28/[address] [place], [address], [facility] 05/28/2023 13:29:03 Past Encounters Encounter ID Performer Location Encounter Start Date Encounter Closed Date Diagnosis/Indication Diagnosis SNOMED-CT Code Diagnosis ICD10 Code [id number] ROZ CAMILO PA-C [facility] [address] [place] [address] 05/28/2023 10:41:35 05/28/2023 12:19:59 Administration of influenza vaccine 33099541 Z23 Administra tion of SARS-CoV-2 vaccine 7781206380 Z23 Cellulitis of left lower limb 6141521734 7935510 L03.116 Disorder d ue to type 2 diabetes mellitus 028119151 E11.8 Hyperlipidemia 05452111 E78.5 Paroxysmal atrial fibrillation 912452692 I48.0 Type 2 enid betes mellitus without complication 329671732 E11.9 [id number] ROZ CAMILO PA-C [facility] [address] [place] [address] 06/04/2023 10:39:23 06/04/2023 11:16:34 Cellulitis of left lower limb 5778639192 9711944 L03.491 [id number] ROZ CAMILO PA-C [facility] [address] [place] [address] 06/09/2023 12:07:19 06/09/2023 13:30:48 Edema of lower extremity 855110580 R60.0 [id number] HONG ABDUL RN [facility] [address] [place] [address] 06/12/2023 09:17:20 06/12/2023 10:06:05 [id number] TK DELAROSA [facility] [address] [place] [address] 06/18/2023 10:40:08 06/18/2023 12:11:52 Cellulitis of left lower limb 4098173223 8720769 L03.288 [id number] ROZ CAMILO PA-C [facility] [address] [place] [address] 06/19/2023 10:40:09 06/19/2023 11:49:00 Cellulitis of left lower limb 1518301156 5136684 L03.236 [id number] ROZ CAMILO PA-C [facility] [address] [place] [address] 10/27/2023 09:19:33 10/27/2023 11:00:25 Candidiasis of skin 30911319 B37.2 Hyperlipidemia 73469278 E78.5 Type 2 enid betes mellitus 26083715 E11.9 Paroxysmal atrial fibrillation 568020952 I48.0 Essential hypertension 89528811 I10 Bilateral hearing loss 05290575 H91.93 Active or passive immunization 779408620 Z23 [id number] ROZ CAMILO PA-C [facility] [address] [place] [address] 01/06/2024 14:00:59 01/06/2024 14:58:34 Candidiasis of skin 00086252 B37.2 Gastroesop hageal reflux disease without esophagitis 475322741 K21.9 Essential hypertension 90755775 I10 Hyperlipidemia 63063621 E78.5 Neuropathy due to type 2 diabetes mellitus 9859917363 04474 E11.40 Paroxysmal atrial fibrillation 481151523 I48.0 Type 2 enid betes mellitus 25735450 E11.9 Onychomyco sis of toenails 285549992 B35.1 [id number] ROZ CAMILO PA-C [facility] [address] [place] [address] 02/08/2024 11:15:20 02/08/2024 12:19:49 Essential hypertension 85133881 I10 Chronic ki dney disease stage 3A 096259371 N18.31 Hyperlipidemia 70073767 E78.5 Paroxysmal atrial fibrillation 584866488 I48.0 Type 2 enid betes mellitus 30628279 E11.9 Candidal intertrigo 2661 45292 B37.2 Goals Section Goal Description Status Start Date LastModified by Organization Details LastModified Time I want to be as healthy as I can be. I like going shopping and getting around Hope wants to stay independent. She enjoys taking the bus and running errands Goal not achieved LEONEL QUIGLEY Information not available 10/27/2023 19:35:37 Id like to visit my grandson in [place], but i don't know how I will get there or pay for it. None Recorded Goal not achieved LEONEL QUIGLEY Information not available 10/27/2023 19:37:24 I want to be in assisted living by february I want to be in Assisted Living by february Goal not achieved LEONEL QUIGLEY Information not available 12/01/2023 14:36:50 Health Concerns Section Related Observation LastModified by Organization Detai ls LastModified Time None Recorded Concern Status LastModified by Organization Details LastModified Time Essential hypertension Active LEONEL QUIGLEY Not Available 10/27/2023 19:3 6:11 Edema of lower extremity Active LEONEL QUIGLEY Not Available 10/27/2023 19:3 5:58 Disorder due to type 2 diabetes mellitus Active LEONEL QUIGLEY Not Available 10/27/2023 19:35:37 Advance Directives Directive None Recorded Payers Encounter Date Sequence Insurance Name Policy Number Policy Adams Covered Member ID Adams Member ID Guarantor Name 06/18/2023 2 [facility] (MEDICAID) Hope Choiend [id number] Hope Busby 06/18/2023 1 [facility] (MEDICARE REPLACEMENT/A DVANTAGE - PPO) [id number] Hope Choiend [id number] Hope Calix Busby 06/19/2023 2 [facility] (MEDICAID) [facility]end [id number] 06/19/2023 1 [facility] (MEDICARE REPLACEMENT/A DVANTAGE - PPO) [id number] Hope Calix Busby [id number] Hope Yogi Busby 10/27/2023 2 [facility] (MEDICAID) [facility]oiend [id number] 10/27/2023 1 [facility] (MEDICARE REPLACEMENT/A DVANTAGE - PPO) [id number] Hope Calix Busby [id number] [facility] 01/06/2024 2 [facility] (MEDICAID) [facility]oiend [id number] [facility] 01/06/2024 1 [facility] (MEDICARE REPLACEMENT/A DVANTAGE - PPO) [id number] Hope Choiend [id number] Hope Yogi Busby 02/08/2024 2 [facility] (MEDICAID) Hope Choiend [id number] Hope Yogi Busby 02/08/2024 1 [facility] (MEDICARE REPLACEMENT/A DVANTAGE - PPO) [id number] Hope Calix Busby [id number] Hope Yogi Savery Notes Date Note Type Note Provider Name and Address Organization Details Recorded Time 06/19/2023 text/html HPI Notes: Here to reassess left lower leg cellulitis and ulcerations. She is feeling that things have improved. She spent a lot of yesterday walking around without significant discomfort. No fevers or chills. Still getting discharge. [address], [place], [address], [facility]. 06/19/2023 12:14:36 10/27/2023 text/html HPI Notes: Jose Rafael mock is here for followup of type 2 diabetes, hypertension, atrial fibrillation, hyperlipidemia. She continues to follow with urology for chronic urinary retention. Suprapubic cath changes every month. Home health is coming to her house routinely to monitor venous stasis ulcers on both lower extremities. These have been doing well. She just restarted Trulicity after not being able to get it for 2 months. Her sugars have been running high. She is currently taking 23 units of Lantus and using short acting with meals. KRIS MONAE, [facility]. 10/27/2023 12:03:19 01/06/2024 text/html HPI Notes: Jose Rafael mock is here for follow-up of poorly controlled, poorly compliant diabetes, atrial fibrillation, chronic venous insufficiency, and chronic urinary retention. She was hospitalized for 17 days in October for Hyperosmotic hyperglycemic state with secondary bradycardia. Medications were adjusted. She was taken off diltiazem and lisinopril. Metoprolol was titrated to 300 mg daily. Improved blood sugar control with medication compliance. She was discharged to the care of her daughter. Relationship is a bit tumultuous. Her daughter is managing her medications but christiane Arnett has difficulty with this responsibility. Looking into getting a trailer on her daughter's a lot so she can have Her own place. She is scheduled for a catheter change with urology in a couple weeks. Feeling okay. Home health is coming into care for a wound on her left lower leg. [address], [place], [address], [facility]. 01/06/2024 16:12:58 02/08/2024 text/html HPI Notes: Jose Rafael mock is here for followup of atrial fibrillation, diabetes, chronic kidney disease, hyperlipidemia, and hypertension. She is excited to be [facility] after our visit today. She is feeling well and has build her strength back up at her daughter's house. Her legs have healed. She claims to have used an old family remedy of applying cow manure for 4 hours for 4 consecutive days and then cleaning with peroxide after application. Feeling well. Her daughter did not increase the dose of Lantus after last visit. She has continued with 30 units of Lantus at night. Taking 12 units of Humalog in the morning and 60 units before supper. She has not had any hypoglycemic episodes but has not been checking her blood sugars either. She feels her diet has been healthier. Less junk food. Fungal infection beneath her breasts have improved but she no longer has the nystatin powder. Still red and a bit tender ROZ CAMILO PA-C [address], [place], [address], [facility]. 02/08/2024 12:25:02 OBGyn Episode No OBEpisode recorded.
--- OUTSIDE RECORDS SUMMARY | 2024-02-24 19:37 | XMS_ITS | Continuity of Care Document ---
Author Organization 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 Name Role Phone Ton COUNT [facility] Physician Encounter NCTY_AL Date(s): 12/17/23 - 12/17/23 [facility] [address] [place] [address] Encounter Diagnosis Obstruction of urinary catheter(Discharge Diagnosis) - 12/17/23 Atypical chest pain(Discharge Diagnosis) - 12/17/23 Yeast cystitis(Discharge Diagnosis) - 12/17/23 Other chest pain(Final) - Other mechanical complication of other urinary catheter, initial encounter (Final) - Candidal cystitis and urethritis(Final) - Other terminal carman (current) drug therapy(Final) - Discharge Disposition: Home or Self Care Attending Physician: Andi Conley MD Admitting Physician: Andi Conley MD Allergies, Adverse Reactions, Alerts Substance Reaction Severity Status traZODone 1 hallucinations Severe Active 1pt reports she was given trazodone prior to a surgery and experienced severe hallucinations Assessment and Plan Extracted from: Title:ED Provider Note Author:Andi Conley MD Date:12/17/23 1.??Obstruction of urinary c atheter??T83.098A Ordered: cefTRIAXone, 1 g = 1 EA, IV Piggyback, Powder-Inj, every 24 hr, Antibiotic Indication Other (specify in order comments), Administer over: 0.5 hr, First Dose: 12/17/23 18:56:00 EDT, STAT, 200 mL/hr fluconazole 200 mg oral tablet, 200 mg = 1 tab, Oral, Daily, X 14 days, # 14 tab, 0 Refill(s), 12/31/23 19:05:00 EDT, Pharmacy: [facility], 87.5, kg, 12/17/23 16:20:00 EDT, Weight Dosing fluconazole, 200 mg = 2 tab, Oral, Tab, Once, Antibiotic Indication UTI, other, First Dose: 12/17/23 19:04:00 EDT, Stop Date: 12/17/23 19:04:00 EDT, Physician Stop, STAT Discharge Patient, 12/17/23 19:06:00 EDT, Home Independently, Constant Indicator ?? 2.??Atypical chest pain??R07.89 Ordered: fluconazole 200 mg oral tablet, 200 mg = 1 tab, Oral, Daily, X 14 days, # 14 tab, 0 Refill(s), 12/31/23 19:05:00 EDT, Pharmacy: [facility], 87.5, kg, 12/17/23 16:20:00 EDT, Weight Dosing fluconazole, 200 mg = 2 tab, Oral, Tab, Once, Antibiotic Indication UTI, other, First Dose: 12/17/23 19:04:00 EDT, Stop Date: 12/17/23 19:04:00 EDT, Physician Stop, STAT Discharge Patient, 12/17/23 19:06:00 EDT, Home Independently, Constant Indicator ?? 3.??Yeast cystitis??B37.41 Ordered: fluconazole 200 mg oral tablet, 200 mg = 1 tab, Oral, Daily, X 14 days, # 14 tab, 0 Refill(s), 12/31/23 19:05:00 EDT, Pharmacy: [facility], 87.5, kg, 12/17/23 16:20:00 EDT, Weight Dosing fluconazole, 200 mg = 2 tab, Oral, Tab, Once, Antibiotic Indication UTI, other, First Dose: 12/17/23 19:04:00 EDT, Stop Date: 12/17/23 19:04:00 EDT, Physician Stop, STAT Discharge Patient, 12/17/23 19:06:00 EDT, Home Independently, Constant Indicator ?? Orders: Urine Culture, Urine, Stat collect, ST - Stat, 12/17/23 18:16:36 EDT, Once, Nurse collect, Collected, 12/17/23 18:16:36 EDT, Print Label, [id number] Diagnostic Tests Pending * Urine Culture 12/17/23 Medications calcium (as carbonate)-vitamin D 600 mg-800 intl units oral tablet 2 tab, Oral, Daily, # 60 tab, 0 Refill(s) Start Date: 11/25/23 Status: Ordered ciprofloxacin 500 mg oral tablet 500 mg = 1 tab, Oral, every 12 hr, # 14 tab, 0 Refill(s), Pharmacy: [facility], 87.18, kg, 11/25/23 3:41:00 EDT, Weight Dosing Start Date: 11/26/23 Stop Date: 12/03/23 Status: Ordered Farxiga 5 mg oral tablet 5 mg = 1 tab, Oral, Daily, # 90 tab, 0 Refill(s) Start Date: 11/25/23 Status: Ordered fluconazole 200 mg oral tablet 200 mg = 1 tab, Oral, Daily, X 14 days, # 14 tab, 0 Refill(s), 12/31/23 6:05:00 PM CDT, Pharmacy: [facility], 87.5, kg, 12/17/23 16:20:00 EDT, Weight Dosing Start Date: 12/17/23 Stop Date: 12/31/23 Status: Ordered Lantus 100 units/mL subcutaneous solution [...] 0 Refill(s) Start Date: 11/25/23 Status: Ordered Problem List Condition Confirmation Course Effective Dates Status Health St atus Informant Atrial fibrillation Confirmed Active Results Laboratory List Name Date Urinalysis with Micro if Indicated and C ulture if Indicated 12/17/23 Urinalysis Microscopic 12/17/23 CBC w/ Diff 12/17/23 Comprehensive Metabolic Panel (CMP) 12/16 Troponin-I 12/17/23 .Morphology (NCTY) 12/17/23 Automated Diff 12/17/23 Most recent to oldest [Reference Range]: 1 WBC [5.0-10.0 x10^3/mcL] 12.9 x10^3/mcL *HI* (12/17/23 4:18 PM) RBC [4.1-5.3 x10^6/mcL] 4.2 x10^6/mcL (12/17/23 4:18 PM) Neutro Auto [40.0-75.0 %] 70.4 % (12/17/23 4:18 PM) Lymph Auto [20.0-50.0 %] 14.2 % *LOW* (12/17/23 4:18 PM) [place] Auto [2.0-15.0 %] 14.1 % (12/17/23 4:18 PM) Basophil Auto [0.0-1.0 %] 0.3 % (12/17/23 4:18 PM) BUN [7-18 mg/dL] 24 mg/dL *HI* (12/17/23 4:18 PM) UA Color Pale Yellow (12/17/23 6:16 PM) UA WBC [0-3] 5-10 *ABN* (12/17/23 6:16 PM) Glucose Level [74-106 mg/dL] 375 mg/dL *HI* (12/17/23 4:18 PM) Acanthocyte Small (12/17/23 4:18 PM) Potassium Level [3.5-5.1 mmol/L] 4.7 mmo l/L (12/17/23 4:18 PM) MCV [80.0-96.0 fL] 78.5 fL *LOW* (12/17/23 4:18 PM) UA Urobilinogen Normal *NA* (12/17/23 6:16 PM) RBC Morph Abnormal (12/17/23 4:18 PM) UA Bili [Negative] Negative *NA* (12/17/23 6:16 PM) UA Ketones Negative *NA* (12/17/23 6:16 PM) AST [15-37 unit/L] 13 unit/L *LOW* (12/17/23 4:18 PM) ALT [14-59 unit/L] 21 unit/L (12/17/23 4:18 PM) MCHC [31.0-35.0 g/dL] 29.5 g/dL *LOW* (12/17/23 4:18 PM) Troponin-I [0.0-51.4 pg/mL] 6.2 pg/mL (12/17/23 4:18 PM) Sodium Level [136-145 mmol/L] 134 mmol/L *LOW* (12/17/23 4:18 PM) UA RBC [0-2] 3-5 (12/17/23 6:16 PM) UA Leuk Est 1+ *ABN* (12/17/23 6:16 PM) UA Nitrite Negative *NA* (12/17/23 6:16 PM) UA Glucose [Negative] 3+ *NA* (12/17/23 6:16 PM) Hct [37.0-47.0 %] 32.9 % *LOW* (12/17/23 4:18 PM) Microcyte Small (12/17/23 4:18 PM) UA Bacteria Few /HPF *ABN* (12/17/23 6:16 PM) Schistocytes Rare (12/17/23 4:18 PM) Hypochromia Rare (12/17/23 4:18 PM) Rouleaux Small (12/17/23 4:18 PM) Calcium Level [8.5-10.1 mg/dL] 9.2 mg/dL (12/17/23 4:18 PM) Albumin Level [3.4-5.0 g/dL] 2.8 g/dL *LOW* (12/17/23 4:18 PM) Protein Total [6.4-8.2 g/dL] 7.7 g/dL (12/17/23 4:18 PM) UA Protein Trace *NA* (12/17/23 6:16 PM) Poik Moderate (12/17/23 4:18 PM) MCH [26.0-32.0 pg] 23.2 pg *LOW* (12/17/23 4:18 PM) Neutro Absolute 9.0 x10^3/mcL *NA* (12/17/23 4:18 PM) Bilirubin Total [0.2-1.0 mg/dL] 0.3 mg/d L (12/17/23 4:18 PM) Hgb [12.0-16.0 g/dL] 9.7 g/dL *LOW* (12/17/23 4:18 PM) Alk Phos [46-146 unit/L] 75 unit/L (12/17/23 4:18 PM) UA Blood 2+ *ABN* (12/17/23 6:16 PM) UA Mucous None Seen /HPF (12/17/23 6:16 PM) Teardrop Cells Rare (12/17/23 4:18 PM) UA Spec Grav <=1.005 *NA* (12/17/23 6:16 PM) Polychrom Rare (12/17/23 4:18 PM) Platelets [130-450 x10^3/mcL] 647 x10^3/ mcL *HI* (12/17/23 4:18 PM) CO2 [21-32 mmol/L] 23 mmol/L (12/17/23 4:18 PM) UA Squam Epithelial [None Seen] None See n (12/17/23 6:16 PM) Macrocyte Rare (12/17/23 4:18 PM) UA pH 6.0 *NA* (12/17/23 6:16 PM) Target Cells Rare (12/17/23 4:18 PM) eGFR Non-AA [>=60] 36 *LOW* (12/17/23 4:18 PM) eGFR AA [>=60] 36 *LOW* (12/17/23 4:18 PM) UA Appear Hazy *ABN* (12/17/23 6:16 PM) Chloride Level [98-107 mmol/L] 97 mmol/L *LOW* (12/17/23 4:18 PM) RDW-CV [11.5-14.5 %] 17.5 % *HI* (12/17/23 4:18 PM) [place] Cells Rare (12/17/23 4:18 PM) Ovalocytes Small (12/17/23 4:18 PM) Imm Gran Auto [0.0-0.9 %] 0.4 % (12/17/23 4:18 PM) NRBC Auto 0.2 % *NA* (12/17/23 4:18 PM) Plt Giant Rare (12/17/23 4:18 PM) Slide Review Morph Only (12/17/23 4:18 PM) UA Culture Ind?. Indicated (12/17/23 6:16 PM) Anisocyte Large (12/17/23 4:18 PM) Creatinine Level [0.55-1.02 mg/dL] 1.52 mg/dL *HI* (12/17/23 4:18 PM) Eos, Auto [1.0-6.0 %] 0.6 % *LOW* (12/17/23 4:18 PM) UA Yeast [None Seen] Many 1 *ABN* (12/17/23 6:16 PM) 1Result Comment: Yeast w/ hyphae present Vital Signs Most recent to oldest [Reference Range]: 1 2 3 Temperature Temporal Artery [36-38 Deg C] 36.5 Deg C (12/17/23 4:11 PM) Peripheral Pulse Rate [60-100 bpm] 92 bpm (12/17/23 6:31 PM) 99 bpm (12/17/23 6:23 PM) 99 bpm (12/17/23 6:22 PM) Heart Rate Monitored [60-100 bpm] 133 bpm *HI* (12/17/23 6:31 PM) 120 bpm *HI* (12/17/23 6:23 PM) 126 bpm *HI* (12/17/23 6:22 PM) Respiratory Rate [12-24 br/min] 17 br/min (12/17/23 6:31 PM) 25 br/min *HI* (12/17/23 6:23 PM) 26 br/min *HI* (12/17/23 6:22 PM) Blood Pressure [90-140/60-90 mmHg] 111/46mmHg (12/17/23 6:31 PM) 103/63mmHg (12/17/23 6:17 PM) 128/70mmHg (12/17/23 5:03 PM) Mean Arterial Pressure, Cuff [65-140 mmHg] 68 mmHg (12/17/23 6:31 PM) 76 mmHg (12/17/23 6:17 PM) 89 mmHg (12/17/23 5:03 PM) Weight 87.5 kg (12/17/23 4:11 PM) Weight Dosing 87.500 kg (12/17/23 4:11 PM) Body Mass Index Estimated 30.28 kg/m2 (12/17/23 4:11 PM) Height/Length Estimated 170 cm (12/17/23 4:11 PM) Social History Social History Type Response Tobacco Former tobacco user Tobacco Use:. quit 35 years ago, lives w/ daughter who heavily smokes per day. Sex Physician Emergency department Note * Andi Conley MD: PERFORM Event Display: ED Note Physician Authored Date: [id number] DHAVAL YEE :1950 Age:73 years Sex:Female Visit Date:12/17/2023 Primary Care Physician: Ton GUTIERREZ-JOSEE, Dean WANG Basic Information Time Seen: Andi Conley MD / 12/17/2023 16:16 Chief Complaint BIBA for CP that radiates down left arm, onset while working w/ PT. Pt has stroke and cardiac hx. BGL 370 per EMS.Pt requesting to be checked for UTI, has hodge. Pt reports daughter heavily smokes, making her breathing worse. History Of Present Illness: Presenting concern is chest pain. ??Context is patient who has moved in with her??daughter. ??She reports??chest pain began around 130. ??610 intensity. ??Location of the left chest.?? Aggravated bycoughing.?? Quality is sharp and stabbing.?? Precipitated by??smoke??from her??granddaughter smoking.?? 4 prior episodes over the past month??since she has moved in with her??daughter. Review of Systems: Review of systems??positive for vomiting last p.m.??otherwise noncontributory. Physical Exam Vitals & Measurements T:??36.5?C ??(Temporal Artery)?? HR:??92??(Peripheral)?? HR:??133??(Monitored)?? RR:??17?? BP:??111/46?? SpO2:??97%?? HT:??170??cm?? WT:??87.5??kg?? BMI:??30.28?? Pain Score:??2?? O2 Therapy:??Room air?? No distress. ??Speaks slowly. ??Respirations normal. ??Tender left anterior chest wall.?? Heart irregular. ??Abdomen??obese, Hodge catheter in place. ??Extremities normal. Medical Decision Making: Problem complexity is low. ??Data complexity is low. ??Management risk are low. ??[facility] coding 83997 Procedure No Qualifying Data Assessment/Plan 1.??Obstruction of urinary catheter??T83.098A Ordered: cefTRIAXone, 1 g = 1 EA, IV Piggyback, Powder-Inj, every 24 hr, Antibiotic Indication Other (specify in order comments), Administer over: 0.5 hr, First Dose: 12/17/23 18:56:00 EDT, STAT, 200 mL/hr fluconazole 200 mg oral tablet, 200 mg = 1 tab, Oral, Daily, X 14 days, # 14 tab, 0 Refill(s), 12/31/23 19:05:00 EDT, Pharmacy: [facility], 87.5, kg, 12/17/23 16:20:00 EDT, Weight Dosing fluconazole, 200 mg = 2 tab, Oral, Tab, Once, Antibiotic Indication UTI, other, First Dose: 12/17/23 19:04:00 EDT, Stop Date: 12/17/23 19:04:00 EDT, Physician Stop, STAT Discharge Patient, 12/17/23 19:06:00 EDT, Home Independently, Constant Indicator ?? 2.??Atypical chest pain??R07.89 Ordered: fluconazole 200 mg oral tablet, 200 mg = 1 tab, Oral, Daily, X 14 days, # 14 tab, 0 Refill(s), 12/31/23 19:05:00 EDT, Pharmacy: [facility], 87.5, kg, 12/17/23 16:20:00 EDT, Weight Dosing fluconazole, 200 mg = 2 tab, Oral, Tab, Once, Antibiotic Indication UTI, other, First Dose: 12/17/23 19:04:00 EDT, Stop Date: 12/17/23 19:04:00 EDT, Physician Stop, STAT Discharge Patient, 12/17/23 19:06:00 EDT, Home Independently, Constant Indicator ?? 3.??Yeast cystitis??B37.41 Ordered: fluconazole 200 mg oral tablet, 200 mg = 1 tab, Oral, Daily, X 14 days, # 14 tab, 0 Refill(s), 12/31/23 19:05:00 EDT, Pharmacy: [facility], 87.5, kg, 12/17/23 16:20:00 EDT, Weight Dosing fluconazole, 200 mg = 2 tab, Oral, Tab, Once, Antibiotic Indication UTI, other, First Dose: 12/17/23 19:04:00 EDT, Stop Date: 12/17/23 19:04:00 EDT, Physician Stop, STAT Discharge Patient, 12/17/23 19:06:00 EDT, Home Independently, Constant Indicator ?? Orders: Urine Culture, Urine, Stat collect, ST - Stat, 12/17/23 18:16:36 EDT, Once, Nurse collect, Collected, 12/17/23 18:16:36 EDT, Print Label, [id number] Medication Reconciliation New Prescription fluconazole (fluconazole 200 mg oral tablet)1 tab Oral (given by mouth) every day for 14 Days. Refills: 0. ?? Unchanged atorvastatin (Lipitor 10 mg oral tablet)20 Milligrams Oral (given by mouth) every day. ?? calcium-vitamin D (calcium (as carbonate)-vitamin D 600 mg-800 intl units oral tablet)2 tab Oral (given by mouth) every day. ?? ciprofloxacin (ciprofloxacin 500 mg oral tablet)1 tab Oral (given by mouth) every 12 hours for 7 Days. Refills: 0. ?? cyanocobalamin (Vitamin B-12 1000 mcg oral tablet)1 tab Oral (given by mouth) every day. ?? dapagliflozin (Farxiga 5 mg oral tablet)1 tab Oral (given by mouth) every day. ?? dulaglutide (Trulicity Pen 1.5 mg/0.5 mL subcutaneous solution)0.5 Milliliters Subcutaneous (under the skin) every week. rotate injection sites. ?? insulin aspart (NovoLOG 100 units/mL injectable solution)12 Units Subcutaneous (under the skin) every day. ?? insulin aspart (NovoLOG FlexPen 100 units/mL injectable solution)6 Units Subcutaneous (under the skin) every evening. ?? insulin glargine (Lantus 100 units/mL subcutaneous solution)30 Units Subcutaneous (under the skin) every night at bedtime. ?? metFORMIN (metFORMIN 500 mg oral tablet)1 [...] evening meal. Problem List/Past Medical History Ongoing Atrial fibrillation Historical No qualifying data Medication Administration Given acetaminophen, 1000 mg, IV Piggyback Allergies traZODone??(hallucinations) Social History Electronic Cigarette/Vaping Electronic Cigarette Use: Never. Tobacco Former tobacco user Tobacco Use:. quit 35 years ago, lives w/ daughter who heavily smokes per day. Lab Results CBC and Differential?? LATEST RESULTS?? HISTORICAL RESULTS?? WBC?? 12/17/23 16:18?? 12.9 ??High?? 11/26/23?? 12.5 ??High?? RBC?? 12/17/23 16:18?? 4.2?? 11/26/23?? 3.7 ??Low?? Hgb?? 12/17/23 16:18?? 9.7 ??Low?? 11/26/23?? 8.9 ??Low?? Hct?? 12/17/23 16:18?? 32.9 ??Low?? 11/26/23?? 30.0 ??Low?? MCV?? 12/17/23 16:18?? 78.5 ??Low?? 11/26/23?? 80.9?? MCH?? 12/17/23 16:18?? 23.2 ??Low?? 11/26/23?? 24.0 ??Low?? MCHC?? 12/17/23 16:18?? 29.5 ??Low?? 11/26/23?? 29.7 ??Low?? RDW-CV?? 12/17/23 16:18?? 17.5 ??High?? 11/26/23?? 18.6 ??High?? Platelets?? 12/17/23 16:18?? 647 ??High?? 11/26/23?? 672 ??High?? Neutro Auto?? 12/17/23 16:18?? 70.4?? 11/25/23?? 69.0?? Lymph Auto?? 12/17/23 16:18?? 14.2 ??Low?? 11/25/23?? 18.7 ??Low?? [place] Auto?? 12/17/23 16:18?? 14.1?? 11/25/23?? 11.2?? Eos, Auto?? 12/17/23 16:18?? 0.6 ??Low?? 11/25/23?? 0.2 ??Low?? Basophil Auto?? 12/17/23 16:18?? 0.3?? 11/25/23?? 0.5?? Imm Gran Auto?? 12/17/23 16:18?? 0.4?? 11/25/23?? 0.4?? NRBC Auto?? 12/17/23 16:18?? 0.2? Neutro Absolute?? 12/17/23 16:18?? 9.0?? 11/25/23?? 8.8?? RBC Morph?? 12/17/23 16:18?? Abnormal?? 11/26/23?? Abnormal?? Acanthocyte?? 12/17/23 16:18?? Small?? 11/26/23?? Small?? Anisocyte?? 12/17/23 16:18?? Large?? 11/26/23?? Large?? [place] Cells?? 12/17/23 16:18?? Rare?? 11/26/23?? Rare?? Hypochromia?? 12/17/23 16:18?? Rare?? 11/26/23?? Rare?? Microcyte?? 12/17/23 16:18?? Small?? 11/26/23?? Small?? Macrocyte?? 12/17/23 16:18?? Rare?? 11/26/23?? Rare?? Ovalocytes?? 12/17/23 16:18?? Small?? 11/26/23?? Small?? Plt Giant?? 12/17/23 16:18?? Rare?? 11/26/23?? Rare?? Poik?? 12/17/23 16:18?? Moderate? Polychrom?? 12/17/23 16:18?? Rare?? 11/26/23?? Rare?? Rouleaux?? 12/17/23 16:18?? Small? Schistocytes?? 12/17/23 16:18?? Rare?? 11/26/23?? Rare?? Target Cells?? 12/17/23 16:18?? Rare? Teardrop Cells?? 12/17/23 16:18?? Rare?? 11/26/23?? Rare?? Slide Review?? 12/17/23 16:18?? Morph Only?? 11/26/23?? Man Diff? Routine Chemistry?? LATEST RESULTS?? HISTORICAL RESULTS?? Sodium Level?? 12/17/23 16:18?? 134 ??Low?? 11/26/23?? 135 ??Low?? Potassium Level?? 12/17/23 16:18?? 4.7?? 11/26/23?? 4.8?? Chloride Level?? 12/17/23 16:18?? 97 ??Low?? 11/26/23?? 104?? CO2?? 12/17/23 16:18?? 23?? 11/26/23?? 23?? Alk Phos?? 12/17/23 16:18?? 75?? 11/24/23?? 84?? AST?? 12/17/23 16:18?? 13 ??Low?? 11/24/23?? 31?? ALT?? 12/17/23 16:18?? 21?? 11/24/23?? 49?? BUN?? 12/17/23 16:18?? 24 ??High?? 11/26/23?? 26 ??High?? Glucose Level?? 12/17/23 16:18?? 375 ??High?? 11/26/23?? 145 ??High?? Creatinine Level?? 12/17/23 16:18?? 1.52 ??High?? 11/26/23?? 1.14 ??High?? eGFR AA?? 12/17/23 16:18?? 36 ??Low?? 11/26/23?? 50 ??Low?? eGFR Non-AA?? 12/17/23 16:18?? 36 ??Low?? 11/26/23?? 50 ??Low?? Calcium Level?? 12/17/23 16:18?? 9.2?? 11/26/23?? 8.7?? Protein Total?? 12/17/23 16:18?? 7.7?? 11/24/23?? 7.9?? Albumin Level?? 12/17/23 16:18?? 2.8 ??Low?? 11/24/23?? 2.8 ??Low?? Bilirubin Total?? 12/17/23 16:18?? 0.3?? 11/24/23?? 0.4? Cardiac Isoenzymes?? LATEST RESULTS?? Troponin-I?? 12/17/23 16:18?? 6.2? UA Macroscopic?? LATEST RESULTS?? HISTORICAL RESULTS?? UA Color?? 12/17/23 18:16?? Pale Yellow?? 11/25/23?? Pale Yellow?? UA Appear?? 12/17/23 18:16?? Hazy Abnormal?? 11/25/23?? Cloudy Abnormal?? UA Glucose?? 12/17/23 18:16?? 3+?? 11/25/23?? 3+ Abnormal?? UA Bili?? 12/17/23 18:16?? Negative?? 11/25/23?? Negative?? UA Ketones?? 12/17/23 18:16?? Negative?? 11/25/23?? Trace Abnormal?? UA Spec Grav?? 12/17/23 18:16?? <=1.005?? 11/25/23?? 1.025?? UA Blood?? 12/17/23 18:16?? 2+ Abnormal?? 11/25/23?? 2+ Abnormal?? UA pH?? 12/17/23 18:16?? 6.0?? 11/25/23?? 6.0?? UA Protein?? 12/17/23 18:16?? Trace?? 11/25/23?? 2+ Abnormal?? UA Urobilinogen?? 12/17/23 18:16?? Normal?? 11/25/23?? Normal?? UA Nitrite?? 12/17/23 18:16?? Negative?? 11/25/23?? Negative?? UA Leuk Est?? 12/17/23 18:16?? 1+ Abnormal?? 11/25/23?? 2+ Abnormal?? UA Culture Ind?.?? 12/17/23 18:16?? Indicated?? 11/25/23?? Indicated? UA Microscopic?? LATEST RESULTS?? HISTORICAL RESULTS?? UA WBC?? 12/17/23 18:16?? 5-10 Abnormal?? 11/25/23?? >100 Abnormal?? UA RBC?? 12/17/23 18:16?? 3-5?? 11/25/23?? 10-25?? UA Squam Epithelial?? 12/17/23 18:16?? None Seen?? 11/25/23?? None Seen?? UA Yeast?? 12/17/23 18:16?? Many Abnormal?? 06/05/24?? Few Abnormal?? UA Mucous?? 12/17/23 18:16?? None Seen?? 11/25/23?? None Seen?? UA Bacteria?? 12/17/23 18:16?? Few Abnormal?? 11/25/23?? Moderate Abnormal? Electronically Signed on 12/17/2023 19:07 EDT Andi Conley MD Emergency department Discharge instructions * Andi Conley MD: PERFORM Event Display: ED Discharge Information Authored Date: [id number] DHAVAL YEE :1950 Age:73 years Sex:Female Visit Date:12/17/2023 Primary Care Physician: Dean Wilson Discharge Instructions We would like to thank you for allowing us to assist you with your healthcare needs. The following includes patient education materials and information regarding your injury/illness. Diagnosis from Today's Visit Obstruction of urinary catheter Atypical chest pain Yeast cystitis Discharge Vitals Temperature??(Temporal Artery) 97.7 ??F (36.5 ??C) Heart Rate??(Peripheral) 92 Heart Rate??(Monitored) 133 Respiratory Rate?? 17 Blood Pressure?? 111/46?? SpO2?? 97% Height?? 66.93 in (170 cm) Weight?? 192.94 lb (87.5 kg) BMI?? 30.28 Allergies traZODone??(hallucinations) What to Do Next Instructions from Your Care Team I cannot explain your chest pain. ??Your??urinary tract obstruction certainly may cause significantdiscomfort.?? Continue with your current medications.?? It would seem that an environment??that does not??have significant??cigarette smoke would be more conducive to your health. ?? You have a yeast infecition??in your bladder take fluconazole 200 mg daily for the next 2 weeks.? Follow-up with your primary care provider. ?? Andi Conley MD You were treated today on an emergency basis; it may be mari to contact your primary care provider to notify them of your visit today. You may have been referred to your regular doctor or a specialist, please follow up as instructed. If your condition worsens or you can't get in to see the doctor, contact the Emergency Department. Medications What How Much When Why Instructions Next Dose New fluconazole (fluconazole 200 mg oral tablet) 1 tab Oral (given by mouth) Every day Obstruction of urinary catheter Atypical chest pain Yeast cystitis Duration: 14 Days Pickup at [facility] Unchanged atorvastatin (Lipitor 10 mg oral tablet) 20 Milligrams Oral (given by mouth) Every day Unchanged calcium-vitamin D (calcium (as carbonate)-vitamin D 600 mg-800 intl units oral tablet) 2 tab Oral (given by mouth) Every day Unchanged ciprofloxacin (ciprofloxacin 500 mg oral tablet) 1 tab Oral (given by mouth) Every 12 hours Duration: 7 Days Unchanged cyanocobalamin (Vitamin B-12 1000 mcg oral tablet) 1 tab Oral (given by mouth) Every day Unchanged dapagliflozin (Farxiga 5 mg oral tablet) 1 tab Oral (given by mouth) Every day Unchanged dulaglutide (Trulicity Pen 1.5 mg/ 0.5 mL subcutaneous solution) 0.5 Milliliters Subcutaneous (under the skin) Every week rotate injection sites ?? Unchanged insulin aspart (NovoLOG 100 units/ mL injectable solution) 12 Units Subcutaneous (under the skin) Every day Unchanged insulin aspart (NovoLOG FlexPen 100 units/ mL injectable solution) 6 Units Subcutaneous (under the skin) Every evening Unchanged insulin glargine (Lantus 100 units/ mL subcutaneous solution) 30 Units Subcutaneous (under the skin) Every night at bedtime Unchanged metFORMIN (metFORMIN 500 mg oral tablet) [...] evening with evening meal ?? Pharmacy Information [facility]: [address], [place] [id number] [phone] Tests Performed Medications and Immunizations Administered Given acetaminophen, 1000 mg, IV Piggyback Lab Test Name Test Result Date/Time WBC 12.9 x10^3/mcL 12/17/2023 16:18 EDT RBC 4.2 x10^6/mcL 12/17/2023 16:18 EDT Hgb 9.7 g/dL 12/17/2023 16:18 EDT Hct 32.9 % 12/17/2023 16:18 EDT MCV 78.5 fL 12/17/2023 16:18 EDT MCH 23.2 pg 12/17/2023 16:18 EDT MCHC 29.5 g/dL 12/17/2023 16:18 EDT RDW-CV 17.5 % 12/17/2023 16:18 EDT Platelets 647 x10^3/mcL 12/17/2023 16:18 EDT Neutro Auto 70.4 % 12/17/2023 16:18 EDT Lymph Auto 14.2 % 12/17/2023 16:18 EDT [place] Auto 14.1 % 12/17/2023 16:18 EDT Eos, Auto 0.6 % 12/17/2023 16:18 EDT Basophil Auto 0.3 % 12/17/2023 16:18 EDT Imm Gran Auto 0.4 % 12/17/2023 16:18 EDT NRBC Auto 0.2 % 12/17/2023 16:18 EDT Neutro Absolute 9.0 x10^3/mcL 12/17/2023 16:18 EDT RBC Morph Abnormal 12/17/2023 16:18 EDT Acanthocyte Small 12/17/2023 16:18 EDT Anisocyte Large 12/17/2023 16:18 EDT [place] Cells Rare 12/17/2023 16:18 EDT Hypochromia Rare 12/17/2023 16:18 EDT Microcyte Small 12/17/2023 16:18 EDT Macrocyte Rare 12/17/2023 16:18 EDT Ovalocytes Small 12/17/2023 16:18 EDT Plt Giant Rare 12/17/2023 16:18 EDT Poik Moderate 12/17/2023 16:18 EDT Polychrom Rare 12/17/2023 16:18 EDT Rouleaux Small 12/17/2023 16:18 EDT Schistocytes Rare 12/17/2023 16:18 EDT Target Cells Rare 12/17/2023 16:18 EDT Teardrop Cells Rare 12/17/2023 16:18 EDT Slide Review Morph Only 12/17/2023 16:18 EDT Sodium Level 134 mmol/L 12/17/2023 16:18 EDT Potassium Level 4.7 mmol/L 12/17/2023 16:18 EDT Chloride Level 97 mmol/L 12/17/2023 16:18 EDT CO2 23 mmol/L 12/17/2023 16:18 EDT Alk Phos 75 unit/L 12/17/2023 16:18 EDT AST 13 unit/L 12/17/2023 16:18 EDT ALT 21 unit/L 12/17/2023 16:18 EDT BUN 24 mg/dL 12/17/2023 16:18 EDT Glucose Level 375 mg/dL 12/17/2023 16:18 EDT Creatinine Level 1.52 mg/dL 12/17/2023 16:18 EDT eGFR AA 36 12/17/2023 16:18 EDT eGFR Non-AA 36 12/17/2023 16:18 EDT Calcium Level 9.2 mg/dL 12/17/2023 16:18 EDT Protein Total 7.7 g/dL 12/17/2023 16:18 EDT Albumin Level 2.8 g/dL 12/17/2023 16:18 EDT Bilirubin Total 0.3 mg/dL 12/17/2023 16:18 EDT Troponin-I 6.2 pg/mL 12/17/2023 16:18 EDT UA Color Pale Yello 12/17/2023 18:16 EDT UA Appear Hazy- Clinitek 12/17/2023 18:16 EDT UA Glucose 3+ 12/17/2023 18:16 EDT UA Bili NEGATIVE 12/17/2023 18:16 EDT UA Ketones NEGATIVE 12/17/2023 18:16 EDT UA Spec Grav <=1.005 12/17/2023 18:16 EDT UA Blood 2+ 12/17/2023 18:16 EDT UA pH 6.0 12/17/2023 18:16 EDT UA Protein TRACE. 12/17/2023 18:16 EDT UA Urobilinogen 0.2 Uro 12/17/2023 18:16 EDT UA Nitrite NEGATIVE 12/17/2023 18:16 EDT UA Leuk Est 1+ 12/17/2023 18:16 EDT UA Culture Ind?. Indicated 12/17/2023 18:16 EDT UA WBC 5-10 12/17/2023 18:16 EDT UA RBC 3-5 12/17/2023 18:16 EDT UA Squam Epithelial None Seen 12/17/2023 18:16 EDT UA Yeast Many 12/17/2023 18:16 EDT UA Mucous None Seen 12/17/2023 18:16 EDT UA Bacteria Few 12/17/2023 18:16 EDT Patient/Manufacturing Maintenance Manager Signature Patient Name:DHAVAL YEE I have received this information and my questions have been answered. Patient/Manufacturing Maintenance Manager Name: Patient/Manufacturing Maintenance Manager Signature: Relationship to Patient: Witness Name/Signature: Date: Electronically Signed on: 12/17/2023 19:07 EDTSigned by:[email or web address] Discharge summary * Smith Lozano: PERFORM Event Display: Discharge Summary Authored Date: [id number] Patient Care team information Care Team Personnel Name: [facility] Dean WANG Position: No Access Member Role: Informed Provider Address: Address: [address] [place], [place] [id number] Care Team Related Persons Name: ZENOBIA ORNELAS Address: Home [address] [place], [place] [id number] Name: BILL MOONEY Address: Home [address] [place] [place], [place] [id number]
--- OUTSIDE RECORDS SUMMARY | 2024-02-24 19:37 | XMS_ITS | Continuity of Care Document ---
Author Organization [facility] Address [address] [place] [address] Care Team Providers Care Record Center Coordinator Name Role Phone Ton [facility] Primary Care Physician Encounter [facility] Date(s): 01/12/24 - 01/12/24 [facility] [address] [place] [address] Encounter Diagnosis Atrial fibrillation(Discharge Diagnosis) - 01/12/24 Discharge Disposition: Home or Self Care Attending Physician: Cayetano Santamaria MD Admitting Physician: Cayetano Santamaria MD Allergies, Adverse Reactions, Alerts Substance Reaction Severity Status traZODone 1 hallucinations Severe Active 1pt reports she was given trazodone prior to a surgery and experienced severe hallucinations Assessment and Plan Extracted from: Title:ED Provider Note Author:Ganga Galaviz MD Date:01/12/24 Assessment/Plan 1.??Atrial fibrillation??I48.91 ??With ambulation patient was said to go up to 105??patient ranges knee from 95- 1 20s but mostly in the low 100s. ??Patient will continue her metoprolol succinate 300 mg/day. ??Spoke with patient's primary care provider who will follow-up with patient.?? Patient would like to eventually be in assisted living??place??our clinic??case management associate met with patient patient will need to follow-up with [facility] and her primary care clinical case coordination as well.?? Records were received from patient's primary care office patient had been on Cardizem however??during recent hospitalization she had bradycardia??with a Cardizem??this will not be restarted. Ordered: Discharge Patient, 01/12/24 17:45:00 EDT, Home Independently, Constant Indicator ?? Patient Education Atrial Fibrillation Follow Up With When Contact Information Follow up with primary care provider Within 1 to 2 weeks Additional Instructions: Medications calcium (as carbonate)-vitamin D 600 mg-800 intl units oral tablet 2 tab, Oral, Daily, # 60 tab, 0 Refill(s) Start Date: 11/25/23 Status: Ordered ciprofloxacin 500 mg oral tablet 500 mg = 1 tab, Oral, every 12 hr, # 14 tab, 0 Refill(s), Pharmacy: [facility], 87.18, kg, 11/25/23 3:41:00 EDT, Weight [...] Confirmed Active Results Laboratory List Name Date CBC w/ Diff 01/12/24 Comprehensive Metabolic Panel 01/12/24 Magnesium Level 01/12/24 Troponin-I 01/12/24 .Morphology ([facility]) 01/12/24 Automated Diff 01/12/24 Most recent to oldest [Reference Range]: 1 WBC [5.0-10.0 x10^3/mcL] 10.2 x10^3/mcL *HI* (01/12/24 2:56 PM) RBC [4.1-5.3 x10^6/mcL] 5.3 x10^6/mcL (01/12/24 2:56 PM) Neutro Auto [40.0-75.0 %] 67.7 % (01/12/24 2:56 PM) Lymph Auto [20.0-50.0 %] 22.0 % (01/12/24 2:56 PM) Gage Auto [2.0-15.0 %] 8.1 % (01/12/24 2:56 PM) Basophil Auto [0.0-1.0 %] 0.7 % (01/12/24 2:56 PM) BUN [7-18 mg/dL] 20 mg/dL *HI* (01/12/24 2:56 PM) Glucose Level [74-106 mg/dL] 388 mg/dL *HI* (01/12/24 2:56 PM) Acanthocyte Small (01/12/24 2:56 PM) Potassium Level [3.5-5.1 mmol/L] 4.7 mmo l/L (01/12/24 2:56 PM) MCV [80.0-96.0 fL] 78.0 fL *LOW* (01/12/24 2:56 PM) RBC Morph Abnormal (01/12/24 2:56 PM) AST [15-37 unit/L] 20 unit/L (01/12/24 2:56 PM) ALT [14-59 unit/L] 18 unit/L (01/12/24 2:56 PM) MCHC [31.0-35.0 g/dL] 28.7 g/dL *LOW* (01/12/24 2:56 PM) Troponin-I [0.0-51.4 pg/mL] 7.2 pg/mL (01/12/24 2:56 PM) Sodium Level [136-145 mmol/L] 129 mmol/L *LOW* (01/12/24 2:56 PM) Hct [37.0-47.0 %] 41.5 % (01/12/24 2:56 PM) Microcyte Small (01/12/24 2:56 PM) Schistocytes Rare (01/12/24 2:56 PM) Hypochromia Rare (01/12/24 2:56 PM) Calcium Level [8.5-10.1 mg/dL] 9.0 mg/dL (01/12/24 2:56 PM) Albumin Level [3.4-5.0 g/dL] 2.9 g/dL *LOW* (01/12/24 2:56 PM) Protein Total [6.4-8.2 g/dL] 8.0 g/dL (01/12/24 2:56 PM) Poik Rare (01/12/24 2:56 PM) MCH [26.0-32.0 pg] 22.4 pg *LOW* (01/12/24 2:56 PM) Magnesium Level [1.8-2.4 mg/dL] 1.8 mg/d L (01/12/24 2:56 PM) Neutro Absolute 6.9 x10^3/mcL *NA* (01/12/24 2:56 PM) Bilirubin Total [0.2-1.0 mg/dL] 0.3 mg/d L (01/12/24 2:56 PM) Hgb [12.0-16.0 g/dL] 11.9 g/dL *LOW* (01/12/24 2:56 PM) Alk Phos [46-146 unit/L] 72 unit/L (01/12/24 2:56 PM) Teardrop Cells Rare (01/12/24 2:56 PM) Platelets [130-450 x10^3/mcL] 542 x10^3/ mcL *HI* (01/12/24 2:56 PM) CO2 [21-32 mmol/L] 24 mmol/L (01/12/24 2:56 PM) Target Cells Rare (01/12/24 2:56 PM) eGFR Non-AA [>=60] 45 *LOW* (01/12/24 2:56 PM) eGFR AA [>=60] 45 *LOW* (01/12/24 2:56 PM) Chloride Level [98-107 mmol/L] 96 mmol/L *LOW* (01/12/24 2:56 PM) RDW-CV [11.5-14.5 %] 17.6 % *HI* (01/12/24 2:56 PM) [place] Cells Rare (01/12/24 2:56 PM) Ovalocytes Small (01/12/24 2:56 PM) Imm Gran Auto [0.0-0.9 %] 0.5 % (01/12/24 2:56 PM) Slide Review Morph Only (01/12/24 2:56 PM) Anisocyte Moderate (01/12/24 2:56 PM) Creatinine Level [0.55-1.02 mg/dL] 1.26 mg/dL *HI* (01/12/24 2:56 PM) Plt Estimation [Adequate] Increased *ABN* (01/12/24 2:56 PM) Eos, Auto [1.0-6.0 %] 1.0 % (01/12/24 2:56 PM) Vital Signs Most recent to oldest [Reference Range]: 1 2 3 Temperature Temporal Artery [36-38 Deg C] 35.8 Deg C *LOW* (01/12/24 2:35 PM) Heart Rate Monitored [60-100 bpm] 112 bpm *HI* (01/12/24 3:56 PM) 103 bpm *HI* (01/12/24 3:00 PM) 118 bpm *HI* (01/12/24 2:35 PM) Respiratory Rate [12-24 br/min] 18 br/min (01/12/24 3:56 PM) 15 br/min (01/12/24 3:00 PM) 22 br/min (01/12/24 2:35 PM) Blood Pressure [90-140/60-90 mmHg] 126/73mmHg (01/12/24 3:56 PM) 122/68mmHg (01/12/24 3:00 PM) 109/93mmHg (01/12/24 2:35 PM) Mean Arterial Pressure, Cuff [65-140 mmHg] 91 mmHg (01/12/24 3:56 PM) 86 mmHg (01/12/24 3:00 PM) 98 mmHg (01/12/24 2:35 PM) Weight 82.8 kg (01/12/24 2:35 PM) Weight Dosing 82.800 kg (01/12/24 2:35 PM) Social History Social History Type Response Tobacco Former tobacco user Tobacco Use:. quit 35 years ago, lives w/ daughter who heavily smokes per day. Sex Hospital Discharge Instructions Patient Education 01/12/2024 16:45:32 Atrial Fibrillation Atrial Fibrillation Atrial fibrillation is a type of irregular or rapid heartbeat (arrhythmia). In atrial fibrillation,the top part of the heart (atria) beats in an irregular pattern. This makes the heart unable to pump blood normally and effectively. The goal of treatment is to prevent blood clots from forming, control your heart rate, or restore your heartbeat to a normal rhythm. If this condition is not treated, it can cause serious problems, such as a weakened heart muscle (cardiomyopathy) or a stroke. What are the causes? This condition is often caused by medical conditions that damage the heart's electrical system. These include: ??? High blood pressure (hypertension). This is the most common cause. ??? Certain heart problems or conditions, such as heart failure, coronary artery disease, heart valve problems, or heart surgery. ??? Diabetes. ??? Overactive thyroid (hyperthyroidism). ??? Obesity. ??? Chronic kidney disease. In some cases, the cause of this condition is not known. What increases the risk? This condition is more likely to develop in: ??? Older people. ??? People who smoke. ??? Athletes who do endurance exercise. ??? People who have a family history of atrial fibrillation. ??? Men. ??? People who use drugs. ??? People who drink a lot of alcohol. ??? People who have lung conditions, such as emphysema, pneumonia, or COPD. ??? People who have obstructive sleep apnea. What are the signs or symptoms? Symptoms of this condition include: ??? A feeling that your heart is racing or beating irregularly. ??? Discomfort or pain in your chest. ??? Shortness of breath. ??? Sudden light-headedness or weakness. ??? Tiring easily during exercise or activity. ??? Fatigue. ??? Syncope (fainting). ??? Sweating. In some cases, there are no symptoms. How is this diagnosed? Your health care provider may detect atrial fibrillation when taking your pulse. If detected, this condition may be diagnosed with: ??? An electrocardiogram (ECG) to check electrical signals of the heart. ??? An ambulatory business office coordinator to record your heart's activity for a few days. ??? A transthoracic echocardiogram (TTE) to create pictures of your heart. ??? A transesophageal echocardiogram (PAZ) to create even closer pictures of your heart. ??? A stress test to check your blood supply while you exercise. ??? Imaging tests, such as a CT scan or chest X-ray. ??? Blood tests. How is this treated? Treatment depends on underlying conditions and how you feel when you experience atrial fibrillation. This condition may be treated with: ??? Medicines to prevent blood clots or to treat heart rate or heart rhythm problems. ??? Electrical cardioversion to reset the heart's rhythm. ??? A pacemaker to correct abnormal heart rhythm. ??? Ablation to remove the heart tissue that sends abnormal signals. ??? Left atrial appendage closure to seal the area where blood clots can form. In some cases, underlying conditions will be treated. Follow these instructions at home: Medicines ??? Take over-the counter and prescription medicines only as told by your health care provider. ??? Do not take any new medicines without talking to your health care provider. ??? If you are taking blood thinners: ??? Talk with your health care provider before you take any medicines that contain aspirin or NSAIDs, such as ibuprofen. These medicines increase your risk for dangerous bleeding. ??? Take your medicine exactly as told, at the same time every day. ??? Avoid activities that could cause injury or bruising, and follow instructions about how to prevent falls. ??? Wear a medical alert bracelet or carry a card that lists what medicines you take. Lifestyle ??? Do not use any products that contain nicotine or tobacco, such as cigarettes, e-cigarettes, andchewing tobacco. If you need help quitting, ask your health care provider. ??? Eat heart-healthy foods. Talk with a dietitian to make an eating plan that is right for you. ??? Exercise regularly as told by your health care provider. ??? Do not drink alcohol. ??? Lose weight if you are overweight. ??? Do not use drugs, including cannabis. General instructions ??? If you have obstructive sleep apnea, manage your condition as told by your health care provider. ??? Do not use diet pills unless your health care provider approves. Diet pills can make heart problems worse. ??? Keep all follow-up visits as told by your health care provider. This is important. Contact a health care provider if you: ??? Notice a change in the rate, rhythm, or strength of your heartbeat. ??? Are taking a blood thinner and you notice more bruising. ??? Tire more easily when you exercise or do heavy work. ??? Have a sudden change in weight. Get help right away if you have: ??? Chest pain, abdominal pain, sweating, or weakness. ??? Trouble breathing. ??? Side effects of blood thinners, such as blood in your vomit, stool, or urine, or bleeding that cannot stop. ??? Any symptoms of a stroke. BE FAST is an easy way to remember the main warning signs of a stroke: ??? B - Balance. Signs are dizziness, sudden trouble walking, or loss of balance. ??? E - Eyes. Signs are trouble seeing or a sudden change in vision. ??? F - Face. Signs are sudden weakness or numbness of the face, or the face or eyelid drooping on one side. ??? A - Arms. Signs are weakness or numbness in an arm. This happens suddenly and usually on one side of the body. ??? S - Speech. Signs are sudden trouble speaking, slurred speech, or trouble understanding what people say. ??? T - Time. Time to call emergency services. Write down what time symptoms started. ??? Other signs of a stroke, such as: ??? A sudden, severe headache with no known cause. ??? Nausea or vomiting. ??? Seizure. These symptoms may represent a serious problem that is an emergency. Do not wait to see if the symptoms will go away. Get medical help right away. Call your local emergency services (911 in the [place] Do not drive yourself to the hospital. Summary ??? Atrial fibrillation is a type of irregular or rapid heartbeat (arrhythmia). ??? Symptoms include a feeling that your heart is beating fast or irregularly. ??? You may be given medicines to prevent blood clots or to treat heart rate or heart rhythm problems. ??? Get help right away if you have signs or symptoms of a stroke. ??? Get help right away if you cannot catch your breath or have chest pain or pressure. This information is not intended to replace advice given to you by your health care provider. Make sure you discuss any questions you have with your health care provider. Document Revised: 11/30/2019 Document Reviewed: 11/30/2019 [employer] Patient Education ?? 2022 [employer]. Follow Up Care 01/12/2024 14:31:30 With:Follow up with primary care provider Address: When:1 to 2 weeks hris manager Note * Crissy Escalante RN: PERFORM Event Display: Case Management Note Authored Date: [id number] Late Entry - met with pt last night - currently she is living with her. She is asking about assisted living options. She would [facility] to go to the [facility]. Pt updated the assisted living at the [facility] and thy no longer are accepting pts for that level of care. Discussed [facility] and [facility] as they are local facilities. Application given to pt for MM - she will take home andgo over with her daughter. Agreed that I would push her information to [facility] and follow up with her lead case manager at [facility] [phone]. [facility] a bed - spoke with Henna. Pts face sheet and med list (not updated) forwarded to Henna as well as PCP information and Alexis . Pt has a letter in hand for Department[facility] Disabilities - aging and Independent Living - she was declined clinically for [facility]. TC to Alexis - he has been working with pt for a few months. She is living with her dtr because her place has a bed bug infestation. Discussed AL options. He is unsure how much her insurance will cover. He has tried to call pt several times and her phone is off. He has also left messages on [employer] phone(dtr) and no call has been returned. TC to Beatriz - she is not happy that her mother got declined by [facility]. Stated that she has been busting her ass helping her mother. Stated that her mother probably did not hear anything that I said to her as she is [place], however, pt did not ask me to repeat myself and her answers to my questions - appropriate. Beatriz said they have a plan for pt to live in a camper - it will have het and her meals will be taken care of - she will have everything she needs per dtr. Spoke to Dhaval - she is aware [facility] will have a bed if appropriate. Discussed that she needs to call Alexis - she is aware he has been trying to contact her and is agreeable to call him back. Sheis aware of the [facility] arranges but states she is not sure if she wants that. She will call Alexis. TC to Alexis - he is aware I spoke to pt by calling Beatriz - pts phone going right to and mailbox is full. He is aware of the plan with the [facility] but his understanding it was on a different propertyand had no power/water. He will reach out to them in an hour or so if he has not heard back. Pt gets her care normally in [facility]. [facility] sent in her yesterday for rapid heart rate. Alexis will follow pt along. Physician Emergency department Note * Arlyn Galaviz MD: PERFORM Event Display: ED Note Physician Authored Date: [id number] DHAVAL YEE :1950 Age:73 years Sex:Female Visit Date:01/12/2024 Primary Care Physician: Ton GUTIERREZ-Dean TRIPP Basic Information Time Seen: Arlyn Galaviz MD / 01/12/2024 14:32 Chief Complaint pt BIBA from home after [facility] was concerned for an elevated heart rate, pt states that it feels irregaular. no chest pain, pain on left leg. wound noted on the top of left lshin. History Of Present Illness: Patient had been seen by [facility]??after she had gotten home from shopping this morning. ??Patient with known atrial fibrillation and found to have a heart??rate that was elevated. ??EMS reports that patient's primary care provider has been doing some changes??to her atrial fibrillation medication.?? Patient reports she was feeling her heart skip beats at times??patient denies any pain or discomfort??other than in her left anterior lower extremity.?? No fevers no chills??no chest pain??no shortness of breath no cough??no abdominal pain??no extremity edema??patient has had a left anterior??sore??padilla area??for a number of months she states since getting out of [facility] at [facility] point.?[facility] had wanted patient to come in??to be monitored/checked out. ??Patient reports her daughter who lives with her??drinks beer??and smokes??marijuana.?? Patient's primary care office reports patient was there onJuly 2023??we have asked for records Review of Systems: see hpi for ros Physical Exam Vitals & Measurements T:??35.8?C ??(Temporal Artery)?? HR:??112??(Monitored)?? RR:??18?? BP:??126/73?? SpO2:??99%?? WT:??82.8??kg?? O2 Therapy:??Room air?? General: Alert and oriented, well nourished,?No??acute distress, slight hard of hearing Eye: PER?Normal??conjunctiva,??No??scleral icterus HENT: Normocephalic,??nontraumatic??Normal hearing Lungs: Clear to auscultation,?Non-labored?? respiration Heart:?Normal?? rate,?Regular??rhythm,?No??murmur,?No??gallop,?No??edema Chest: wall excursion wnl no abnormal movements no obvious deformities Abdomen: Soft, non-tender, non-distended,?? No??masses Musculoskeletal:?Normal?? range of motion and strength,?No??tenderness,?No??swelling Skin: Skin is warm, dry and pink,?No??rashes,??positive erythema anterior left padilla??that appears to be healing??wound/ulceration Neurologic: Awake, alert and oriented X4 Psychiatric: Cooperative, appropriate mood and affect Medical Decision Making: For MDM please see under assessment and plan Procedure No Qualifying Data Assessment/Plan 1.??Atrial fibrillation??I48.91 ??With ambulation patient was said to go up to 105??patient ranges knee from 95- 1 20s but mostly inthe low 100s. ??Patient will continue her metoprolol succinate 300 mg/day. ??Spoke with patient's primary care provider who will follow-up with patient.?? Patient would like to eventually be in assisted living??place??our clinic??case management associate met with patient [facility] primary care clinical case coordination as well.?? Records were received from patient's primary care office patient had been on Cardizem however??during recent hospitalization she had bradycardia??with a Cardizem??this will not be restarted. Ordered: Discharge Patient, 01/12/24 17:45:00 EDT, Home Independently, Constant Indicator ?? Patient Education Atrial Fibrillation Follow Up With When Contact Information Follow up with primary care provider Within 1 to 2 weeks Additional Instructions: Medication Reconciliation Unchanged atorvastatin (Lipitor 10 mg [...] Ongoing Atrial fibrillation Historical No qualifying data Allergies traZODone??(hallucinations) Social History Electronic Cigarette/Vaping Electronic Cigarette Use: Never. Tobacco Former tobacco user Tobacco Use:. quit 35 years ago, lives w/ daughter who heavily smokes per day. Lab Results CBC and Differential?? LATEST RESULTS?? HISTORICAL RESULTS?? WBC?? 01/12/24 14:56?? 10.2 ??High?? 12/17/23?? 12.9 ??High?? RBC?? 01/12/24 14:56?? 5.3?? 12/17/23?? 4.2?? Hgb?? 01/12/24 14:56?? 11.9 ??Low?? 12/17/23?? 9.7 ??Low?? Hct?? 01/12/24 14:56?? 41.5?? 12/17/23?? 32.9 ??Low?? MCV?? 01/12/24 14:56?? 78.0 ??Low?? 12/17/23?? 78.5 ??Low?? MCH?? 01/12/24 14:56?? 22.4 ??Low?? 12/17/23?? 23.2 ??Low?? MCHC?? 01/12/24 14:56?? 28.7 ??Low?? 12/17/23?? 29.5 ??Low?? RDW-CV?? 01/12/24 14:56?? 17.6 ??High?? 12/17/23?? 17.5 ??High?? Platelets?? 01/12/24 14:56?? 542 ??High?? 12/17/23?? 647 ??High?? Neutro Auto?? 01/12/24 14:56?? 67.7?? 12/17/23?? 70.4?? Lymph Auto?? 01/12/24 14:56?? 22.0?? 12/17/23?? 14.2 ??Low?? Gage Auto?? 01/12/24 14:56?? 8.1?? 12/17/23?? 14.1?? Eos, Auto?? 01/12/24 14:56?? 1.0?? 12/17/23?? 0.6 ??Low?? Basophil Auto?? 01/12/24 14:56?? 0.7?? 12/17/23?? 0.3?? Imm Gran Auto?? 01/12/24 14:56?? 0.5?? 12/17/23?? 0.4?? Neutro Absolute?? 01/12/24 14:56?? 6.9?? 12/17/23?? 9.0?? RBC Morph?? 01/12/24 14:56?? Abnormal?? 12/17/23?? Abnormal?? Acanthocyte?? 01/12/24 14:56?? Small?? 12/17/23?? Small?? Anisocyte?? 01/12/24 14:56?? Moderate?? 12/17/23?? Large?? [place] Cells?? 01/12/24 14:56?? Rare?? 12/17/23?? Rare?? Hypochromia?? 01/12/24 14:56?? Rare?? 12/17/23?? Rare?? Microcyte?? 01/12/24 14:56?? Small?? 12/17/23?? Small?? Ovalocytes?? 01/12/24 14:56?? Small?? 12/17/23?? Small?? Plt Estimation?? 01/12/24 14:56?? Increased Abnormal?? 11/24/23?? Increased Abnormal?? Poik?? 01/12/24 14:56?? Rare?? 12/17/23?? Moderate?? Schistocytes?? 01/12/24 14:56?? Rare?? 12/17/23?? Rare?? Target Cells?? 01/12/24 14:56?? Rare?? 12/17/23?? Rare?? Teardrop Cells?? 01/12/24 14:56?? Rare?? 12/17/23?? Rare?? Slide Review?? 01/12/24 14:56?? Morph Only?? 12/17/23?? Morph Only? Routine Chemistry?? LATEST RESULTS?? HISTORICAL RESULTS?? Sodium Level?? 01/12/24 14:56?? 129 ??Low?? 12/17/23?? 134 ??Low?? Potassium Level?? 01/12/24 14:56?? 4.7?? 12/17/23?? 4.7?? Chloride Level?? 01/12/24 14:56?? 96 ??Low?? 12/17/23?? 97 ??Low?? CO2?? 01/12/24 14:56?? 24?? 12/17/23?? 23?? Alk Phos?? 01/12/24 14:56?? 72?? 12/17/23?? 75?? AST?? 01/12/24 14:56?? 20?? 12/17/23?? 13 ??Low?? ALT?? 01/12/24 14:56?? 18?? 12/17/23?? 21?? BUN?? 01/12/24 14:56?? 20 ??High?? 12/17/23?? 24 ??High?? Glucose Level?? 01/12/24 14:56?? 388 ??High?? 12/17/23?? 375 ??High?? Creatinine Level?? 01/12/24 14:56?? 1.26 ??High?? 12/17/23?? 1.52 ??High?? eGFR AA?? 01/12/24 14:56?? 45 ??Low?? 12/17/23?? 36 ??Low?? eGFR Non-AA?? 01/12/24 14:56?? 45 ??Low?? 12/17/23?? 36 ??Low?? Calcium Level?? 01/12/24 14:56?? 9.0?? 12/17/23?? 9.2?? Protein Total?? 01/12/24 14:56?? 8.0?? 12/17/23?? 7.7?? Albumin Level?? 01/12/24 14:56?? 2.9 ??Low?? 12/17/23?? 2.8 ??Low?? Bilirubin Total?? 01/12/24 14:56?? 0.3?? 12/17/23?? 0.3?? Magnesium Level?? 01/12/24 14:56?? 1.8?? 11/26/23?? 2.1? Cardiac Isoenzymes?? LATEST RESULTS?? HISTORICAL RESULTS?? Troponin-I?? 01/12/24 14:56?? 7.2?? 12/17/23?? 6.2? Electronically Signed on 01/12/2024 17:47 EDT Arlyn Galaviz MD Emergency department Discharge instructions * Arlyn Galaviz MD: PERFORM Event Display: ED Discharge Information Authored Date: [id number] DHAVAL YEE :1950 Age:73 years Sex:Female Visit Date:01/12/2024 Primary Care Physician: eDan Wilson Discharge Instructions We would like to thank you for allowing us to assist you with your healthcare needs. The following includes patient education materials and information regarding your injury/illness. Diagnosis from Today's Visit Atrial fibrillation Discharge Vitals Temperature??(Temporal Artery) 96.4 ??F (35.8 ??C) Heart Rate??(Monitored) 112 Respiratory Rate?? 18 Blood Pressure?? 126/73?? SpO2?? 99% Weight?? 182.57 lb (82.8 kg) Allergies traZODone??(hallucinations) What to Do Next Instructions from Your Care Team Please call tomorrow to schedule a follow-up with your primary care provider.?? You also need to meet with clinical case coordination through their office. You Need to Schedule the Following Appointments Follow Up with??Follow up with primary care provider When:??Within 1 to 2 weeks You were treated today on an emergency [...] Emergency Department. Medications What How Much When Instructions Next Dose Unchanged atorvastatin (Lipitor 10 mg oral tablet) [...] mouth) Every evening with evening meal ?? Education Materials Atrial Fibrillation Atrial fibrillation is a type of irregular or rapid heartbeat (arrhythmia). In atrial fibrillation,the top part of the heart (atria) beats in an irregular pattern. This makes the heart unable to pump blood normally and effectively. The goal of treatment is to prevent blood clots from forming, control your heart rate, or restore your heartbeat to a normal rhythm. If this condition is not treated, it can cause serious problems, such as a weakened heart muscle (cardiomyopathy) or a stroke. What are the causes? This condition is often caused by medical conditions that damage the heart's electrical system. These include: ? High blood pressure (hypertension). This is the most common cause. ? Certain heart problems or conditions, such as heart failure, coronary artery disease, heart valve problems, or heart surgery. ? Diabetes. ? Overactive thyroid (hyperthyroidism). ? Obesity. ? Chronic kidney disease. In some cases, the cause of this condition is not known. What increases the risk? This condition is more likely to develop in: ? Older people. ? People who smoke. ? Athletes who do endurance exercise. ? People who have a family history of atrial fibrillation. ? Men. ? People who use drugs. ? People who drink a lot of alcohol. ? People who have lung conditions, such as emphysema, pneumonia, or COPD. ? People who have obstructive sleep apnea. What are the signs or symptoms? Symptoms of this condition include: ? A feeling that your heart is racing or beating irregularly. ? Discomfort or pain in your chest. ? Shortness of breath. ? Sudden light-headedness or weakness. ? Tiring easily during exercise or activity. ? Fatigue. ? Syncope (fainting). ? Sweating. In some cases, there are no symptoms. How is this diagnosed? Your health care provider may detect atrial fibrillation when taking your pulse. If detected, this condition may be diagnosed with: ? An electrocardiogram (ECG) to check electrical signals of the heart. ? An ambulatory business office coordinator to record your heart's activity for a few days. ? A transthoracic echocardiogram (TTE) to create pictures of your heart. ? A transesophageal echocardiogram (PAZ) to create even closer pictures of your heart. ? A stress test to check your blood supply while you exercise. ? Imaging tests, such as a CT scan or chest X-ray. ? Blood tests. How is this treated? Treatment depends on underlying conditions and how you feel when you experience atrial fibrillation. This condition may be treated with: ? Medicines to prevent blood clots or to treat heart rate or heart rhythm problems. ? Electrical cardioversion to reset the heart's rhythm. ? A pacemaker to correct abnormal heart rhythm. ? Ablation to remove the heart tissue that sends abnormal signals. ? Left atrial appendage closure to seal the area where blood clots can form. In some cases, underlying conditions will be treated. Follow these instructions at home: Medicines ? Take over-the counter and prescription medicines only as told by your health care provider. ? Do not take any new medicines without talking to your health care provider. ? If you are taking blood thinners: ? Talk with your health care provider before you take any medicines that contain aspirin or NSAIDs, such as ibuprofen. These medicines increase your risk for dangerous bleeding. ? Take your medicine exactly as told, at the same time every day. ? Avoid activities that could cause injury or bruising, and follow instructions about how to prevent falls. ? Wear a medical alert bracelet or carry a card that lists what medicines you take. Lifestyle ? Do not use any products that contain nicotine or tobacco, such as cigarettes, e- cigarettes, and chewing tobacco. If you need help quitting, ask your health care provider. ? Eat heart-healthy foods. Talk with a dietitian to make an eating plan that is right for you. ? Exercise regularly as told by your health care provider. ? Do not drink alcohol. ? Lose weight if you are overweight. ? Do not use drugs, including cannabis. General instructions ? If you have obstructive sleep apnea, manage your condition as told by your health care provider. ? Do not use diet pills unless your health care provider approves. Diet pills can make heart problemsworse. ? Keep all follow-up visits as told by your health care provider. This is important. Contact a health care provider if you: ? Notice a change in the rate, rhythm, or strength of your heartbeat. ? Are taking a blood thinner and you notice more bruising. ? Tire more easily when you exercise or do heavy work. ? Have a sudden change in weight. Get help right away if you have: ? Chest pain, abdominal pain, sweating, or weakness. ? Trouble breathing. ? Side effects of blood thinners, such as blood in your vomit, stool, or urine, or bleeding that cannot stop. ? Any symptoms of a stroke. BE FAST is an easy way to remember the main warning signs of a stroke: ? B - Balance. Signs are dizziness, sudden trouble walking, or loss of balance. ? E - Eyes. Signs are trouble seeing or a sudden change in vision. ? F - Face. Signs are sudden weakness or numbness of the face, or the face or eyelid drooping on one side. ? A - Arms. Signs are weakness or numbness in an arm. This happens suddenly and usually on one side of the body. ? S - Speech. Signs are sudden trouble speaking, slurred speech, or trouble understanding what peoplesay. ? T - Time. Time to call emergency services. Write down what time symptoms started. ? Other signs of a stroke, such as: ? A sudden, severe headache with no known cause. ? Nausea or vomiting. ? Seizure. These symptoms may represent a serious problem that is an emergency. Do not wait to see if the symptoms will go away. Get medical help right away. Call your local emergency services (911 in the [place] Do not drive yourself to the hospital. Summary ? Atrial fibrillation is a type of irregular or rapid heartbeat (arrhythmia). ? Symptoms include a feeling that your heart is beating fast or irregularly. ? You may be given medicines to prevent blood clots or to treat heart rate or heart rhythm problems. ? Get help right away if you have signs or symptoms of a stroke. ? Get help right away if you cannot catch your breath or have chest pain or pressure. This information is not intended to replace advice given to you by your health care provider. Make sure you discuss any questions you have with your health care provider. Document Revised: 11/30/2019 Document Reviewed: 11/30/2019 [employer] Patient Education ?? 2022 [employer] [place]. Tests Performed Lab Test Name Test Result Date/Time WBC 10.2 x10^3/mcL 01/12/2024 14:56 EDT RBC 5.3 x10^6/mcL 01/12/2024 14:56 EDT Hgb 11.9 g/dL 01/12/2024 14:56 EDT Hct 41.5 % 01/12/2024 14:56 EDT MCV 78.0 fL 01/12/2024 14:56 EDT MCH 22.4 pg 01/12/2024 14:56 EDT MCHC 28.7 g/dL 01/12/2024 14:56 EDT RDW-CV 17.6 % 01/12/2024 14:56 EDT Platelets 542 x10^3/mcL 01/12/2024 14:56 EDT Neutro Auto 67.7 % 01/12/2024 14:56 EDT Lymph Auto 22.0 % 01/12/2024 14:56 EDT Gage Auto 8.1 % 01/12/2024 14:56 EDT Eos, Auto 1.0 % 01/12/2024 14:56 EDT Basophil Auto 0.7 % 01/12/2024 14:56 EDT Imm Gran Auto 0.5 % 01/12/2024 14:56 EDT Neutro Absolute 6.9 x10^3/mcL 01/12/2024 14:56 EDT RBC Morph Abnormal 01/12/2024 14:56 EDT Acanthocyte Small 01/12/2024 14:56 EDT Anisocyte Moderate 01/12/2024 14:56 EDT Sidney Cells Rare 01/12/2024 14:56 EDT Hypochromia Rare 01/12/2024 14:56 EDT Microcyte Small 01/12/2024 14:56 EDT Ovalocytes Small 01/12/2024 14:56 EDT Plt Estimation Increased 01/12/2024 14:56 EDT Poik Rare 01/12/2024 14:56 EDT Schistocytes Rare 01/12/2024 14:56 EDT Target Cells Rare 01/12/2024 14:56 EDT Teardrop Cells Rare 01/12/2024 14:56 EDT Slide Review Morph Only 01/12/2024 14:56 EDT Sodium Level 129 mmol/L 01/12/2024 14:56 EDT Potassium Level 4.7 mmol/L 01/12/2024 14:56 EDT Chloride Level 96 mmol/L 01/12/2024 14:56 EDT CO2 24 mmol/L 01/12/2024 14:56 EDT Alk Phos 72 unit/L 01/12/2024 14:56 EDT AST 20 unit/L 01/12/2024 14:56 EDT ALT 18 unit/L 01/12/2024 14:56 EDT BUN 20 mg/dL 01/12/2024 14:56 EDT Glucose Level 388 mg/dL 01/12/2024 14:56 EDT Creatinine Level 1.26 mg/dL 01/12/2024 14:56 EDT eGFR AA 45 01/12/2024 14:56 EDT eGFR Non-AA 45 01/12/2024 14:56 EDT Calcium Level 9.0 mg/dL 01/12/2024 14:56 EDT Protein Total 8.0 g/dL 01/12/2024 14:56 EDT Albumin Level 2.9 g/dL 01/12/2024 14:56 EDT Bilirubin Total 0.3 mg/dL 01/12/2024 14:56 EDT Magnesium Level 1.8 mg/dL 01/12/2024 14:56 EDT Troponin-I 7.2 pg/mL 01/12/2024 14:56 EDT Patient/Construction Stonemason Signature Patient Name:DHAVAL YEE I have received this information and my questions have been answered. Patient/Construction Stonemason Name: Patient/Construction Stonemason Signature: Relationship to Patient: Witness Name/Signature: Date: Electronically Signed on: 01/12/2024 17:46 EDTSigned by:AMS Patient Care team information Care Team Personnel Name: Ton HARMAN-WADean Position: No Access Member Role: Informed Provider Address: Address: [facility] [address] [place], [place] [address] Care Team Related Persons Name: BEATRIZ ORNELAS Address: Home [address] [place], [place] [id number] Name: BILL MOONEY Address: [address] [place], [place] [id number]
--- OUTSIDE RECORDS SUMMARY | 2024-02-24 19:38 | XMS_ITS | Continuity of Care Document ---
Author Organization [place] - [facility], formerly [facility] Address [address] [place] [address] Care Team Providers Care Grazing Examiner Name Role Phone DEAN CAMILO Primary Care Provider [facility] Pin Drafting Machine Operator HENNA QUIGLEY OTHER TRI MCGEE Diabetes Education NISHA CALIA OTHER JAYANT DIAZ Urologist Assessment No assessment recorded. Plan of Treatment Reminders Order Date Submit Date Provider Last Modified By Organization Details Last Modified Time Details Appointments Medical Nutrition Therapy 2023 03:00P M Not available Not available Not available Follow Up 30 2023 10:30A M Not available Not available Not available Lab HbA1c (hemoglob in A1c), blood 2023 024 [facility] (Registration ), [address] [place] [address] [place], [address], 02/23/2024 07:55:15 lipid panel, serum 2023 024 [facility] (Registration ), [address] [place] [address] [place], [address], 02/23/2024 07:55:07 CMP, serum or plasma 2023 024 [facility] (Registration ), [address] [place] [address] [place], [address], 02/08/2024 19:26:39 CBC 2023 024 [facility] (Registration ), [address] [place] [address] Dr, [place], [address], 02/08/2024 19:24:34 Referral None recorded. Procedures None recorded. Surgeries None recorded. Imaging None recorded. Medication Orders nystatin 100,000 unit/gram topical powder 2023 024 [id number], [address] [facility], [place], [address], 02/08/2024 12:24:43 Patient TargetsNo targets recorded. Patient Instructions Encounter Date Encounter Id Patient Instructions Last Modified By Organization Details Last Modified Time 02/08/2024 [id number] Hope Sparks I will call you with results of blood work, and will sent in a prescription for nystatin powder. aleksandra Not available 02/08/2024 12:04:46 Reason for Referral Hose Tester Referral f or Referral needed type 2 DM, A1C>9%, CGM referral Referring Physician: Family Mary Anne Reza, Encounter Date: 05/28/2023 Home Health: Wound Care Nurs e Referral for Cellulitis of left lower limb left lower leg cellulities with weeping ulcer daily dressing changes for ulcer left lower leg with daily silvadene application Referring Physician: Family Mary Anne Reza, Encounter Date: 06/19/2023 Salt Miner Referral for Type 2 diabetes mellitus without complication Nail care Referring Physician: Family Mary Anne Reza, Encounter Date: 10/05/2023 Diabetic Nutrition Education Referral for Type 2 diabetes mellitus Medical diabetic education, and cgm start Referring Physician: Family Mary Anne Reza, Encounter Date: 10/27/2023 Marshmallow Runner Referral for Typ e 2 diabetes mellitus overdue for diabetic eye exam Referring Physician: Family Mary Anne Reza, Encounter Date: 10/27/2023 Sole Buffer Referral for Kaz ateral hearing loss longstanding progressive hearing loss. Interested in hearing aids Referring Physician: Family Mary Anne Reza, Encounter Date: 10/27/2023 Membership Sales Manager Referral for I mpairment of balance Referring Physician: Dean Camilo [facility] Mary Anne, Encounter Date: 11/30/2023 [place]er Referral for Neur opathy due to type 2 diabetes mellitus Diabetic Shoes Referring Physician: Dean Camilo [facility] Mary Anne, Encounter Date: 01/08/2024 [place] Referral for Type 2 diabetes mellitus without complication foot care Referring Physician: Dean Camilo [facility], Encounter Date: 01/26/2024 Results Created Date Observation Date Name Description Value Unit Range Abnormal Flag Note LastModifiedBy Organization Detail LastModifiedTime 02/24/2002/24/2024 CT imagi mimi bhat Name: Lucita Antony nd Unit #: [id number] Loc: ER Orderi ng Provid er: Aashish Bills Accoun t #: [id number] Status : PRE ER Primar y Care [...] were create d and review ed COMPAR JAYY: No exams were availa ble for compar jayy FINDIN GS: BRAIN: There are no skull [...] by 7 mm cranio caudal . IMPRES SUJATA: No acute intrac ranial findin gs on [...] facili ty are submit brent to the [facility] al Radiol ogy Data Regist ry (NRDR) Dose Index Regist ry (DIR) with the [place] renetta mock of Radiol ogy (ACR). RADIAT ION OPTIMI ZATION : All CT [facility] at [facility] use at least one of these dose optimi zation techni ques: automa brent exposu re contro l; mA and/or kV adjust ment per patien t size (inclu shiv target ed exams where dose is matche d to clinic al indica tion); or iterat davi recons tructi on 041: Total DLP = 0.00 mGy-cm Ordere d By: Aashish Bills CC: ------ ------ ------ ------ ------ ------ ------ ------ ------ ------ ------ ------ ---- Dictat ed By: Boni Harris M.D. 1923 Transc ribed By: Kimberly REYNOSO,Stephanie christopher 1923 This is privil eged, confid ential [...] the addres s above. Thank- you. INTERFACE [facility] [address], [place], [address] 02/24/2024 19:28:20 Result Notes None recorded. Problems Name Problem SNOMED Code Status Onset Date Resolution Date Notes Provider Name and Address Organization Details Recorded Time Hyperlip idemia 16255636 Active 195909/24/19 23 - Comments only - Dean Camilo RPA - She continue s on statin. No change made today. Problem Code: E78.5; Problem Code Type: ICD-10; Not Available [facility] 3 04:12:27 Essentia l hyperten sujata 56030131 Active 195905/06/20 22 - Comments only - Dean Camilo RPA - Reasonab le controll ed on current medicait on manageme nt. No changes made today. Problem Code: I10; Problem Code Type: ICD-10; Not Available [facility] 3 04:12:27 Neuropat hy due to type 2 diabetes mellitus 05278180439 9106 Active 2011 Problem Code: E11.40; Problem Code Type: ICD-10; Not Available [facility] 3 04:12:27 History of malignan t melanoma of the skin 72369621317 8 Active 2010 Problem Code: Z85.820; Problem Code Type: ICD-10; Not Available [facility] 3 04:12:27 Seronega tive rheumato id arthriti s 481916006 Active 1996 Problem Code: M06.00; Problem Code Type: ICD-10; Not Available [facility] 3 04:12:27 Paroxysm al atrial fibrilla tion 560139839 Active 201401/13/20 23 - Comments only - Dean Camilo RPA - This continue s to be rate controll ed. She is on anticoag ulation. No changes to medicati on manageme nt made today. Problem Code: I48.0; Problem Code Type: ICD-10; Not Available [facility] 3 04:12:27 Retentio n of urine 058446088 Completed 201502/12/2016 12/31/19 16 - Comments only - Lana Ramos MD - We'll continue to use bladder scanning and when necessar y straight catheter . Hopefull y this will improve over the next 24-48 hours. Problem Code: R33.9; Problem Code Type: ICD-10; Not Available [facility] 3 04:12:28 History of fracture 667643845 Active 2015 Problem Code: Z87.81; Problem Code Type: ICD-10; Not Available [facility] 3 04:12:28 Hearing loss 72049697 Active 2019 Problem Code: H91.90; Problem Code Type: ICD-10; Not Available [facility] 3 04:12:28 Retentio n of urine 540905607 Active 202005/06/20 22 - Comments only - Dean Camilo RPA - Supra pubic cath getting rouine changes. no recent uti's. Problem Code: R33.9; Problem Code Type: ICD-10; Not Available [facility] 3 04:12:28 Visual disturba nce 12643320 Active 202002/22/20 21 - Comments only - Dean Camilo RPA - mild nonprofl ierative diabetic rethinop athy on 11/2020 exam Problem Code: H53.9; Problem Code Type: ICD-10; Not Available [facility] 3 04:12:28 Anemia 657507921 Active 2020 Problem Code: D64.9; Problem Code Type: ICD-10; [address], [place], [address] , 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 Schedule d for suprapub ic cath change today. Not Available [facility] 3 04:12:28 Cerebral infarcti on 473608190 Active 202201/13/20 23 - Comments only - Dean Camilo RPA - Presente d 2 weeks [...] I63.9; Problem Code Type: ICD-10; Not Available [facility] 3 04:12:29 Pressure injury of buttock 641839545 Active 2022 Problem Code: L89.309; Problem Code Type: ICD-10; Not Available [facility] 3 04:12:29 Diabetes mellitus 77454818 Completed 200912/05/2014 Not Available [facility] 3 04:12:31 Fatigue 42532358 Completed 201803/12/2021 Problem Code: R53.83; Problem Code Type: ICD-10; Not Available [facility] 3 04:12:31 Screenin g for malignan t neoplasm of colon Completed 201803/12/2021 Problem Code: Z12.11; Problem Code Type: ICD-10; Not Available [facility] 3 04:12:31 Malignan t melanoma of skin 26225872 Completed 201003/18/2023 Problem Code: 172.9; Problem Code Type: ICD-9; Not Available [facility] 3 04:12:31 Screent[place]ana vila mammogra phy Completed 201409/06/2021 Problem Code: Z12.31; Problem Code Type: ICD-10; Not Available [facility] 3 04:12:32 Gastroes ophageal reflux disease without esophagi tis 131585692 Completed 195909/06/2021 Problem Code: K21.9; Problem Code Type: ICD-10; Not Available [facility] 3 04:12:32 Supraven tricular tachycar enid 1115602 Completed 199509/06/2021 Problem Code: I47.1; Problem Code Type: ICD-10; Not Available [facility] 3 04:12:32 Anemia 936793469 Completed 201703/12/2021 Problem Code: D64.9; Problem Code Type: ICD-10; DEAN CAMILO PA-C [facility] [address], [place], [address] , [facility] 4 11:40:45 General unsteadi ness 155531973 Completed 201809/06/2021 Problem Code: R26.81; Problem Code Type: ICD-10; Not Available [facility] 3 04:12:32 Heart murmur 31078164 Completed 199703/12/2021 Not Available [facility] 3 04:12:33 Pain of left shoulder joint 30340778206 127777 Completed 201703/12/2021 Problem Code: M25.512; Problem Code Type: ICD-10; Not Available [facility] 3 04:12:33 Type 2 diabetes mellitus without complica tion 371166866 Completed 199503/18/2023 05/24/20 21 - Comments only - Dean Camilo RPA - Fragile diabetic . She recogniz es her low blood sugars. Trial of Jardianc e in the morning. She relies on suprapub ic cath for urinatio n. I reviewed the side effect profile. Problem Code: E11.9; Problem Code Type: ICD-10; Not Available [facility] 3 04:12:33 Rheumato id arthdipak s 57297702 Completed 199603/18/2023 Problem Code: 714.0; Problem Code Type: ICD-9; Not Available [facility] 3 04:12:33 Skin ulcer due to type 2 diabetes mellitus 83152059987 9101 Completed 202109/23/2022 Problem Code: E11.622; Problem Code Type: ICD-10; Not Available [facility] 3 04:12:33 Pernicio us anemia 88507869 Completed 201103/26/2015 Not Available [facility] 3 04:12:33 Urinary tract infectio us disease 06749782 Completed 202109/23/2022 Problem Code: N39.0; Problem Code Type: ICD-10; Not Available [facility] 3 04:12:34 Renal function tests outside referenc e range 433989618 Completed 201703/12/2021 Problem Code: R94.4; Problem Code Type: ICD-10; Not Available [facility] 3 04:12:34 Peripher al nerve disease 787839334 Completed 201103/18/2023 Not Available [facility] 3 04:12:35 Dyssomni a 43434048 Completed Not Available [facility] 3 04:12:35 Urinary tract infectio us disease 81219459 Completed 199712/07/2020 Problem Code: 599.0; Problem Code Type: ICD-9; Not Available [facility] 3 04:12:35 History of artifici al eye lens 065950212 Completed 200209/06/2021 Problem Code: Z96.1; Problem Code Type: ICD-10; Not Available [facility] 3 04:12:36 Menorrha kathia 525102803 Completed 199509/06/2021 Not Available [facility] 3 04:12:36 Disorder of tongue 69397006 Completed 201803/12/2021 Problem Code: K14.8; Problem Code Type: ICD-10; Not Available [facility] 3 04:12:36 Hyperten sive disorder 67676628 Completed Not Available [facility] 3 04:12:36 Bilatera l cataract s 92719873 Completed 200203/18/2023 Not Available [facility] 3 04:12:36 Rheumati c fever 52684619 Completed Not Available [facility] 3 04:12:37 Conducti on disorder of the heart 20390685 Completed 199503/18/2023 Problem Code: 427.9; Problem Code Type: ICD-9; Not Available [facility] 3 04:12:37 Gastroes ophageal reflux disease 698237549 Completed Not Available [facility] 3 04:12:37 Cellulit is of left lower limb 25500126152 583698 Active [address], [place], [address] , [facility] 3 13:01:35 Problem Notes None recorded. Medical Equipment None Reported. Allergies Allergen ID Allergen Name Allergen Category Reaction Reaction Severity Criticality Documentation Date Start Date Code Code System Note Provider Name and Address Organization Details Recorded Time 71335 trazodone medicatio n hallucina tions Not available Not available 05/01/20232004 85765 RxNorm HALLU CINAT IONS Not Available [facility] 3 16:18:57 Medications Name Sig Start Date Stop [...] by mouth once a day 12/10 completed [facility] Armaan Renteria Generic name Taztia Not Available [...] Take 1 by mouth daily (d/c at [facility]) 12/15 completed Not Available Not Available Not [...] 11/17/23 discharg e at half-dos ing per [facility] Not Available Not Available Not Available lisinopri [...] l 5 mg tablet 1TAB qd DM 06/12 completed Not Available Not Available Not Available furosemid e 20 mg tablet TAKE ONE TABLET BY MOUTH EVERY MORNING 11/[address] [facility] 11/26/23 Not Available Not Available Not Available [...] tab three times a day (d/c at [facility]) 06/01 completed Not Available Not Available Not [...] units sub Q at bedtime 2015 active [facility] Not Available Not Available Not Avai lable [...] DateTime 4 166.598 6 cm 29.9 kg/m2 33359.4 g 98.4 [degF] 98 % 98 % 15 /min 132 mm[Hg] 78 mm[Hg] JERSEY DENNIS RN [place] [facility]. 4 11:29:31 Social History Question Answer Notes LastModified by Organizat ion Details LastModified Time Tobacco Smoking Status Former Smoker HONG FAUVER, RN [facility], [facility] 05/28/2023 11:13:14 When Did You Quit Smoking? 14+yearssi arsalan james Information not available 05/28/2023 Date Care Plan Printed: 10/27/2023 Information not available 10/27/2023 Assigned Web Interface Developer: Henna Quigley RN Information not available 10/27/2023 [facility] The Lead Web Interface Developer? No [facility] Information not available 10/27/2023 Level Of Intensity: [...] On 11/05/23 COA On 11/17/23 COA And [facility] 12/01/23 Information not available 12/01/2023 Transportation Barrier No Takes RCT Bus Route Information not available 10/27/2023 Financial Barrier Yes Is Behind In Rent, Is Involved With Financial [employer]-Data Information not available 10/27/2023 Behavioral Health Yes Informa tion not available 10/27/2023 Community Gate Manager Yes Information not available 10/27/2023 Dental Services No Informati on not available 10/27/2023 Diabetes Education Yes Inform ation not available 10/27/2023 Food Resources No Informatio n not available 10/27/2023 Fuel Assistance No Informati on not available 10/27/2023 Hospice No Information no t available 10/27/2023 Housing Yes Information no t available 10/27/2023 Insurance Enrollment Yes Information not available 10/27/2023 Italian Lecturer Care No Informatio n not available 10/27/2023 Meals On Wheels No Informati on not available 10/27/2023 Medication Assistance No Information not available 10/27/2023 Physical Activity Programs No Information not available 10/27/2023 Senior Care Yes Informati on not available 10/27/2023 Social [...] Group No Information not available 10/27/2023 Health Seater Assembler For HTN Control No Information not available 10/27/2023 Tobacco Cessation No Informa tion not available 10/27/2023 Weight Loss Program No Information not available 10/27/2023 WRAP No Information no t available 10/27/2023 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 10/27/2023 12:03:12 Td (adult), 5 Lf tetanus toxoid, preservative free, adsorbed 04/13/2018 completed Not Available [facility] 05/01/2023 04:09:41 Tdap 10/20/2006 completed Not Available [facility] 04:09:42 zoster live 03/26/2015 completed Not Available [facility] 05/01/2023 04:09:42 Pneumococcal conjugate PCV 13 04/13/2018 completed Not Available [facility] 05/01/2023 04:09:42 Influenza, high-dose, trivalent, PF 04/21/2019 completed Not Available [facility] 05/01/2023 04:09:43 Influenza, high-dose, trivalent, PF 05/06/2016 completed Not Available [facility] 05/01/2023 04:09:43 Td(adult) unspecified formulation 06/22/1994 completed Not Available [facility] 05/01/2023 04:09:43 Influenza, split virus, trivalent, preservative 03/26/2015 completed Not Available [facility] 05/01/2023 04:09:43 Influenza, split virus, quadrivalent, preservative 03/16/2017 completed Not Available [facility] 05/01/2023 04:09:43 Influenza, adjuvanted, trivalent, PF 03/01/2018 completed Not Available [facility] 05/01/2023 04:09:43 Influenza, high-dose, quadrivalent, PF 03/12/2021 completed Not Available [facility] 05/01/2023 04:09:43 Influenza, high-dose, quadrivalent, PF 05/06/2022 completed Not Available [facility] 05/01/2023 04:09:44 COVID-19, mRNA, LNP-S, PF, 100 mcg/0.5mL dose or 50 mcg/0.25mL dose 11/01/2021 completed Not Available [facility] 05/01/2023 04:09:44 COVID-19, mRNA, LNP-S, PF, 100 mcg/0.5mL dose or 50 mcg/0.25mL dose 05/24/2021 completed Not Available [facility] 05/01/2023 04:09:44 SARS-COV-2 (COVID-19) vaccine, UNSPECIFIED 09/14/2020 completed Not Available [facility] 05/01/2023 04:09:45 COVID-19, mRNA, LNP-S, bivalent, PF, 30 mcg/0.3 mL dose 09/23/2022 completed Not Available [facility] 05/01/20 04:09:45 pneumococcal polysaccharide PPV23 04/21/2019 completed Not Available [facility] 2022 04:09:46 influenza, unspecified formulation 02/12/2012 completed Not Available [facility] 05/01/2023 04:09:46 influenza, unspecified formulation 02/25/2013 completed Not Available [facility] 05/01/2023 04:09:46 influenza, unspecified formulation 02/28/2011 completed Not Available [facility] 05/01/2023 04:09:46 influenza, unspecified formulation 03/08/2020 completed Not Available [facility] 05/01/2023 04:09:46 influenza, unspecified formulation 03/14/2014 completed Not Available [facility] 05/01/2023 04:09:46 influenza, unspecified formulation 03/22/2010 completed Not Available [facility] 05/01/2023 04:09:46 Influenza, high-dose, quadrivalent, PF 05/28/2023 completed DEAN CAMILO PA-C [address], [place], [address], [facility]. 05/28/2023 13:29:03 COVID-19, mRNA, LNP-S, PF, ezio-sucrose, 30 mcg/0.3 mL 05/28/2023 completed DEAN CAMILO PA-C [address], [place], [address], [facility]. 05/28/2023 13:29:03 Past Encounters Encounter ID Performer Location Encounter Start Date Encounter Closed Date Diagnosis/Indication Diagnosis SNOMED-CT Code Diagnosis ICD10 Code [id number] DEAN CAMILO PA-C [facility] [address] [place] [address] 02/08/2024 11:15:20 02/08/2024 12:19:49 Essential hypertension 38057427 I10 Chronic ki dney disease stage 3A 889507514 N18.31 Hyperlipidemia 02040682 E78.5 Paroxysmal atrial fibrillation 199920099 I48.0 Type 2 enid betes mellitus 41316955 E11.9 Candidal intertrigo 2661 51185 B37.2 Goals Section Goal Description Status Start Date LastModified by Organization Details LastModified Time I want to be as healthy as I can be. I like going shopping and getting around Hope wants to stay independent. She enjoys taking the bus and running errands Goal not achieved LEONEL QUIGLEY Information not available 10/27/2023 19:35:37 Id like to visit my grandson in [place], but i don't know how I will [...] Active LEONEL QUIGLEY Not Available 10/27/2023 19:35:37 Payers Encounter Date Sequence Insurance Name Policy Number Policy Adams Covered Member ID Adams Member ID Guarantor Name 02/08/2024 2 [facility] (MEDICAID) Hope Busby [id number] Hope Busby 02/08/2024 1 [facility] (MEDICARE REPLACEMENT/A DVANTAGE - PPO) [id number] Hope Busby [id number] Hope Busby Notes Date Note Type Note Provider Name and Address Organization Details Recorded Time 02/08/2024 text/html HPI Notes: Jose Rafael mock is here for followup of atrial fibrillation, diabetes, chronic kidney disease, hyperlipidemia, and hypertension. She is excited to be moving back into [address] after our visit today. She is [...] powder. Still red and a bit tender DEAN CAMILO PA-C [address], [place], [address], [facility]. 02/08/2024 12:25:02 OBGyn Episode No OBEpisode recorded.
--- OUTSIDE RECORDS SUMMARY | 2024-02-24 19:38 | XMS_ITS | Clinical Summary ---
Author Organization [facility] [place] [address] Care Team Providers Care Loom Fixer Helper Name Role Phone Dean Camilo Primary Care [...] (12/31/2010): Apr 2010 - upper central back Immunizations [...] e alcohol) 1 drink every 3-4 months [facility] Utilities Answer Date Recorded In the [...] place to sleep or slept in a retirement (including now)? No 11/05/2023 [facility] IPV Inpatient [...] Procedure Name Priority Date/Time Associated Diagnosis Comments BASIC METABOLIC PANEL Routine 11/22/2023 4:25 AM EDT HEMOGLOBIN A1C Routine 11/05/2023 6:00 AM EDT from Last 3 Months or Most Recently Relevant to Health Maintenance Results * (ABNORMAL) Basic Metabolic Panel (non-fasting) (11/22/2023 4:25 AM EDT) Glucose 59(L) 65 - 199 mg/dL [facility] Comment:Diabetes: >=200 mg/d L plus symptoms Blood Urea Nitrogen 38(H) 8 - 18 mg/dL [facility] Creatinine 1.02 0.70 - 1.20 mg/dL [facility] Sodium 137 135 - 145 mmol/L [facility] Potassium 4.4 3.5 - 5.0 mmol/L [facility] Comment: Please note: ??Patients with WBC >100,000 may have falsely elevated Potassium levels. ??For accurate Potassium quantification in these patients send serum separator tube (gold top) for subsequent determinations. ??Contact the Clinical Chemistry Laboratory if there are any questions. Chloride 104 98 - 107 mmol/L [facility] Carbon Dioxide 22 22 - 31 mmol/L [facility] Anion Gap 11 5 - 15 mmol/L [facility] Calcium 9.2 8.5 - 10.5 mg/dL [facility] Est Glomerular Filtration Rate 57(L) >=60 mL/min/1. 73 m?? [facility] Comment: This patient's estimated [...] Lab Francis Roberts MD CHEMISTRY ORDERABLE S [facility] [place] [address] * (ABNORMAL) Hemoglobin A1c (11/05/2023 6:00 AM EDT) Hemoglobin A1c 13.1(H) 4.3 - 5.6 % [facility] Comment: Reference Range: 4.3 [...] Mellitus, Diabetes Care 2013; 36: Suppl. 1, S67-39 Estimated Average Glucose See note mg/dL [facility] Comment: Estimated Average Glucose not appropriate for patients over 70 years of age. Blood 11/05/2023 6:00 AM EDT 11/05/2023 6:06 AM EDT Narrative Resulting Agency Comment Spec In Lab Abran Shailesh BERKOWITZ CHEMISTRY ORDERABLES [facility] [place] [address] from Last 3 Months or Most Recently Relevant to Health Maintenance Advance Directives Documents on File Type Date Recorded Patient Stuffing Machine Operator Expl anation Advance Directives and Livin g [...] is based on Patients wishes. Care Teams Loom Fixer Helper Relationship Specialty Start Date End Date Dean Camilo PA [address] [place] [address] PCP - General Internal Medicine 02/01/21
--- OUTSIDE RECORDS SUMMARY | 2024-02-24 19:38 | XMS_ITS | Continuity of Care Document ---
Author Organization [place] - [facility] Address Kirti Chirinos [facility] [place] [address] Care Team Providers Care Bullet Charging Machine Operator Name Role Phone DEAN CAMILO Primary Care Provider [phone] [facility] ON AGING Television Antenna Installer HENNA QUIGLEY OTHER TRI MCGEE Diabetes Education NISHA CHONG OTHER [phone] JAYANT DIAZ Urologist Assessment Encounter Date Assessment [...] available Not available Not available Follow Up 2023 10:30A M Not available Not available Not available Lab None recorded. Referral None recorded. Procedures None recorded. Surgeries None recorded. Imaging None recorded. Medication Orders Lantus Solostar U-100 Insulin 100 unit/mL (3 mL) subcutane ous pen 2023 024 [facility] [address] [place], [address], 02/09/2024 13:41:52 nystatin 100,000 unit/gram topical powder 2023 024 [email or web address] [facility] [address] [place], [address], 01/06/2024 15:27:32 omeprazol e 20 mg capsule,d elayed release 2023 024 [facility] [address] [place], [address], 02/09/2024 13:41:45 Patient TargetsNo targets recorded. Patient Instructions Encounter Date Encounter Id Patient Instructions Last Modified By Organization Details Last Modified Time 01/06/2024 [id number] Hope - I will send omeprazole 20 mg to [facility] for your stomach. I will send nystatin powder to use on your skin yeast infection. We need to increase your lantus to 55 units daily. We will continue to try to get you a cgm. Not available 01/06/2024 14:50:14 Reason for Referral Site Lead Referral f or Referral needed type 2 DM, A1C>9%, CGM referral Referring Physician: Family Lainey Medicine, Encounter Date: 05/28/2023 Home Health: Wound Care Nurs e Referral for Cellulitis of left lower limb left lower leg cellulities with weeping ulcer daily dressing changes for ulcer left lower leg with daily silvadene application Referring Physician: Family Lainey Medicine, Encounter Date: 06/19/2023 Builder'S Labourer Referral for Type 2 diabetes mellitus without complication Nail care Referring Physician: Family Lainey Medicine, Encounter Date: 10/05/2023 Diabetic Nutrition Education Referral for Type 2 diabetes mellitus Medical diabetic education, and cgm start Referring Physician: Family Mary Anne Reza, Encounter Date: 10/27/2023 Flash Welding Machine Operator Referral for Typ e 2 diabetes mellitus overdue for diabetic eye exam Referring Physician: Family Mary Anne Reza, Encounter Date: 10/27/2023 Food And Beverage Lead Referral for Kaz ateral hearing loss longstanding progressive hearing loss. Interested in hearing aids Referring Physician: Family Mary Anne Reza, Encounter Date: 10/27/2023 Rubber Production Machine Operator Referral for I mpairment of balance Referring Physician: Family Mary Anne Reza, Encounter Date: 11/30/2023 Builder'S Labourer Referral for Neur opathy due to type 2 diabetes mellitus Diabetic Shoes Referring Physician: Family Mary Anne Reza, Encounter Date: 01/08/2024 Builder'S Labourer Referral for Type 2 diabetes mellitus without complication foot care Referring Physician: Family Mary Anne Reza, Encounter Date: 01/26/2024 Results Created Date Observation Date Name Description Value Unit Range Abnormal Flag Note LastModifiedBy Organization Detail LastModifiedTime 12/17/19 24 12/17/2023 XR, chest , 1 view PROCED URE INFORM ATION: Exam: XR Chest Exam date and time: 024 4:43 PM Age: 73 years old Clinic al indica tion: Left chest pain TECHNI QUE: Imagin g protoc ol: Radiol ogic exam of the chest. Views: 1 view. COMPAR JAYY: CR XR CHEST 1 VW 11/24/19 24 9:35 PM FINDIN GS: Lungs: Unrema rkable . No consol idatio n. Pleura l spaces : Unrema rkable . No pleura l effusi on. No pneumo thorax . Heart/ Medias tinum: Unrema rkable . No cardio megaly . Bones/ joints : Unrema rkable . IMPRES SUJATA: No acute findin gs. Report signed by: Jesus Ramirez On 2023 17:26: [address] [id number] [address], [place], [address], 12/18/2023 07:26:37 02/24/20 24 02/24/2024 CT imagi ng repor t Melinda t Name: Lucita Antony nd Unit #: [id number] Loc: ER Orderi ng Provid er: Benjie le,Aashish WANG Accoun t #: [id number] Status : PRE ER Primar y Care [...] indica tion); or iterat davi recons tructi on. 041: Total DLP = [...] the addres s above. Thank- you. INTERFACE [facility] [address] [place], [address] 02/24/2024 19:28:20 Result Notes None recorded. Problems Name Problem SNOMED Code Status Onset Date Resolution Date Notes Provider Name and Address Organization Details Recorded Time Hyperlip idemia 92441166 Active 195909/24/19 23 - Comments only - Dean Camilo RPA - She continue s on statin. No change made today. Problem Code: E78.5; Problem Code Type: ICD-10; Not Available [facility] 3 04:12:27 Essentia l hyperten sujata 77761634 Active 195905/06/20 22 - Comments only - Dean Camilo RPA - Reasonab le controll ed on current medicait on manageme nt. No changes made today. Problem Code: I10; Problem Code Type: ICD-10; Not Available [facility] 3 04:12:27 Neuropat hy due to type 2 diabetes mellitus 73850316966 9106 Active 2011 Problem Code: E11.40; Problem Code Type: ICD-10; Not Available [facility] 3 04:12:27 History of malignan t melanoma of the skin 65852072576 8 Active 2010 Problem Code: Z85.820; Problem Code Type: ICD-10; Not Available [facility] 3 04:12:27 Seronega tive rheumato id arthriti s 913810295 Active 1996 Problem Code: M06.00; Problem Code Type: ICD-10; Not Available [facility] 3 04:12:27 Paroxysm al atrial fibrilla tion 307074007 Active 201401/13/20 23 - Comments only - Dean Camilo RPA - This continue s to be rate controll ed. She is on anticoag ulation. No changes to medicati on manageme nt made today. Problem Code: I48.0; Problem Code Type: ICD-10; Not Available [facility] 3 04:12:27 Retentio n of urine 527478012 Completed 201502/12/2016 12/31/19 16 - Comments only - Lana Ramos MD - We'll continue to use bladder scanning and when necessar y straight catheter . Hopefull y this will improve over the next 24-48 hours. Problem Code: R33.9; Problem Code Type: ICD-10; Not Available [facility] 3 04:12:28 History of fracture 485849243 Active 2015 Problem Code: Z87.81; Problem Code Type: ICD-10; Not Available [facility] 3 04:12:28 Hearing loss 73241827 Active 2019 Problem Code: H91.90; Problem Code Type: ICD-10; Not Available [facility] 3 04:12:28 Retentio n of urine 445260205 Active 202005/06/20 22 - Comments only - Dean Camilo RPA - Supra pubic cath getting rouine changes. no recent uti's. Problem Code: R33.9; Problem Code Type: ICD-10; Not Available [facility] 3 04:12:28 Visual disturba nce 57686143 Active 202002/22/20 21 - Comments only - Dean Camilo RPA - mild nonprofl ierative diabetic rethinop athy on 11/2020 exam Problem Code: H53.9; Problem Code Type: ICD-10; Not Available [facility] 3 04:12:28 Anemia 770045397 Active 2020 Problem Code: D64.9; Problem Code Type: ICD-10; [address] [place], [address] , [facility] 4 11:40:45 Chronic kidney disease stage 3A 085752206 Active 2021 Problem Code: N18.31; Problem Code Type: ICD-10; Not Available [facility] 3 04:12:28 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 Schedule d for suprapub ic cath change today. Not Available [facility] 3 04:12:28 Cerebral infarcti on 745308711 Active 202201/13/20 23 - Comments only - [...] I63.9; Problem Code Type: ICD-10; Not Available [facility] 3 04:12:29 Pressure injury of buttock 555594051 Active 2022 Problem Code: L89.309; Problem Code Type: ICD-10; Not Available [facility] 3 04:12:29 Diabetes mellitus 23301409 Completed 200912/05/2014 Not Available [facility] 3 04:12:31 Fatigue 15322764 Completed 201803/12/2021 Problem Code: R53.83; Problem Code Type: ICD-10; Not Available [facility] 3 04:12:31 Screenin g for malignan t neoplasm of colon Completed 201803/12/2021 Problem Code: Z12.11; Problem Code Type: ICD-10; Not Available [facility] 3 04:12:31 Malignan t melanoma of skin 99246172 Completed 201003/18/2023 Problem Code: 172.9; Problem Code Type: ICD-9; Not Available [facility] 3 04:12:31 Screenin g mammogra phy Completed 201409/06/2021 Problem Code: Z12.31; Problem Code Type: ICD-10; Not Available [facility] 3 04:12:32 Gastroes ophageal reflux disease without esophagi tis 307965616 Completed 195909/06/2021 Problem Code: K21.9; Problem Code Type: ICD-10; Not Available [facility] 3 04:12:32 Supraven tricular tachycar enid 2264906 Completed 199509/06/2021 Problem Code: I47.1; Problem Code Type: ICD-10; Not Available [facility] 3 04:12:32 Anemia 785739334 Completed 201703/12/2021 Problem Code: D64.9; Problem Code Type: ICD-10; DEAN CAMILO PA-C [address], [place], [address] [facility] 4 11:40:45 General unsteadi ness 485852063 Completed 201809/06/2021 Problem Code: R26.81; Problem Code Type: ICD-10; Not Available [facility] 3 04:12:32 Heart murmur 39852403 Completed 199703/12/2021 Not Available [facility] 3 04:12:33 Pain of left shoulder joint 98466218684 024823 Completed 201703/12/2021 Problem Code: M25.512; Problem Code Type: ICD-10; Not Available [facility] 3 04:12:33 Type 2 diabetes mellitus without complica tion 394180310 Completed 199503/18/2023 05/24/20 21 - Comments only - Dean Camilo RPA - Fragile diabetic . She recogniz es her low blood sugars. Trial of Jardianc e in the morning. She relies on suprapub ic cath for urinatio n. I reviewed the side effect profile. Problem Code: E11.9; Problem Code Type: ICD-10; Not Available [facility] 3 04:12:33 Rheumato id arthriti s 30882713 Completed 199603/18/2023 Problem Code: 714.0; Problem Code Type: ICD-9; Not Available [facility] 3 04:12:33 Skin ulcer due to type 2 diabetes mellitus 90920914279 9101 Completed 202109/23/2022 Problem Code: E11.622; Problem Code Type: ICD-10; Not Available [facility] 3 04:12:33 Pernicio us anemia 11965632 Completed 201103/26/2015 Not Available [facility] 3 04:12:33 Urinary tract infectio us disease 57227013 Completed 202109/23/2022 Problem Code: N39.0; Problem Code Type: ICD-10; Not Available [facility] 3 04:12:34 Renal function tests outside referenc e range 387849962 Completed 201703/12/2021 Problem Code: R94.4; Problem Code Type: ICD-10; Not Available [facility] 3 04:12:34 Peripher al nerve disease 660577690 Completed 201103/18/2023 Not Available [facility] 3 04:12:35 Dyssomni a 05461492 Completed Not Available [facility] 3 04:12:35 Urinary tract infectio us disease 12762680 Completed 199712/07/2020 Problem Code: 599.0; Problem Code Type: ICD-9; Not Available [facility] 3 04:12:35 History of artifici al eye lens 680948425 Completed 200209/06/2021 Problem Code: Z96.1; Problem Code Type: ICD-10; Not Available [facility] 3 04:12:36 Menorrha kathia 042742819 Completed 199509/06/2021 Not Available [facility] 3 04:12:36 Disorder of tongue 30583556 Completed 201803/12/2021 Problem Code: K14.8; Problem Code Type: ICD-10; Not Available [facility] 3 04:12:36 Hyperten sive disorder 17628928 Completed Not Available [facility] 3 04:12:36 Bilatera l cataract s 02054133 Completed 200203/18/2023 Not Available [facility] 3 04:12:36 Rheumati c fever 35121829 Completed Not Available [facility] 3 04:12:37 Conducti on disorder of the heart 48936608 Completed 199503/18/2023 Problem Code: 427.9; Problem Code Type: ICD-9; Not Available [facility] 3 04:12:37 Gastroes ophageal reflux disease 725485069 Completed Not Available [facility] 3 04:12:37 Cellulit is of left lower limb 71435897423 691805 Active 2022 DEAN CAMILO PA-C [address], [place], [address] , [facility] 3 13:01:35 Problem Notes None recorded. Medical Equipment None Reported. Allergies Allergen ID Allergen Name Allergen Category Reaction Reaction Severity Criticality Documentation Date Start Date Code Code System Note Provider Name and Address Organization Details Recorded Time 15096 trazodone medicatio n hallucina tions Not available Not available 05/01/20232004 15565 RxNorm HALLU CINAT IONS Not Available [facility] 3 16:18:57 Medications Name Sig [...] by mouth once a day 12/10 completed [facility] Armaan Renteria Generic name Taztia Not [...] Take 1 by mouth daily (d/c at [facility]) 12/15 completed Not Available Not Available [...] capsules one time a day 2013 active [facility] Not Available Not Available Not Avai [...] 11/17/23 discharg e at [place] [facility] Not Available Not Available [...] MOUTH EVERY MORNING 11/25 completed Stopped by [facility] 11/26/23 Not Available Not Available [...] tab three times a day (d/c at [facility]) 06/01 completed Not Available Not Available [...] units sub Q at bedtime 2015 active [facility] Not Available Not Available Not [...] DateTime 4 166.598 6 cm 29.4 kg/m2 48575.6 3 g 98.6 [degF] 99 % 99 % 78 /min 14 /min 110 mm[Hg] 72 mm[Hg] JERSEY DENNIS RN [facility] 14:07:26 Social History Question Answer Notes LastModified by Organizat ion Details LastModified Time Tobacco Smoking Status Former Smoker HONG ABDUL RN [facility], [facility] 05/28/2023 11:13:14 When Did You Quit Smoking? 16+yearssi ncelastcig arette Information not available 05/28/2023 Date Care Plan Printed: 10/27/2023 Information not available 10/27/2023 Assigned Women'S Ministry Director: Henna Quigley RN Information not available 10/27/2023 Is [facility] The Lead Women'S Ministry Director? No [facility] [place] pk Information not available 10/27/2023 Level Of Intensity: [...] On 11/05/23 COA On 11/17/23 COA And [facility] 12/01/23 Information not available 12/01/2023 Transportation Barrier No Takes RCT Bus Route Information not available 10/27/2023 Financial Barrier Yes Is Behind In Rent, Is Involved With [employer] Information not available 10/27/2023 Behavioral Health Yes Informa tion not available 10/27/2023 Community Real Time Operator Yes Information not available 10/27/2023 Dental Services No Informati on not available 10/27/2023 Diabetes Education Yes Inform ation not available 10/27/2023 Food Resources No Informatio n not available 10/27/2023 Fuel Assistance No Informati on not available 10/27/2023 Hospice No Information no t available 10/27/2023 Housing Yes Information no t available 10/27/2023 Insurance Enrollment Yes Information not available 10/27/2023 [facility] No Informatio n not available 10/27/2023 Meals On Wheels No Informati on not available 10/27/2023 Medication Assistance No Information not available 10/27/2023 Physical Activity Programs No Information not available 10/27/2023 Jail Yes Informati on not available 10/27/2023 Social [...] Group No Information not available 10/27/2023 Health Rubber Tester For HTN Control No Information not available 10/27/2023 Tobacco Cessation No Informa tion not available 10/27/2023 Weight Loss Program No Information not available 10/27/2023 WRAP No Information no t available 10/27/2023 AHS (Spot [facility]) No Information not available 10/27/2023 Adult Protective [...] EMS No Information no t available 10/27/2023 [place] Support Services No Information not available 10/27/2023 [employer] No Information n ot available 10/27/2023 [facility] No Information not available 10/27/2023 NECKA No [...] [facility] No Information no t available 10/27/2023 [place] [facility] No Information not available 10/27/2023 Fiber Design Engineer On Aging Yes Informat ion not available [...] mcg/0.3 mL 10/27/2023 completed JERSEY DENNIS RN [facility], [place] [facility] 10/27/2023 12:03:12 Td (adult), 5 Lf tetanus toxoid, preservative free, adsorbed 04/13/2018 completed Not Available [facility] 05/01/2023 04:09:41 Tdap 10/20/2006 completed Not Available [facility] 04:09:42 zoster live 03/26/2015 completed Not Available [facility] 05/01/2023 04:09:42 Pneumococcal conjugate PCV 13 04/13/2018 completed Not Available [facility] 05/01/2023 04:09:42 Influenza, high-dose, trivalent, PF 04/21/2019 completed Not Available [facility] 05/01/2023 04:09:43 Influenza, high-dose, trivalent, PF 05/06/2016 completed Not Available [facility] 05/01/2023 04:09:43 Td(adult) unspecified formulation 06/22/1994 completed Not Available [facility] 05/01/2023 04:09:43 Influenza, split virus, trivalent, preservative 03/26/2015 completed Not Available [facility] 05/01/2023 04:09:43 Influenza, split virus, quadrivalent, preservative 03/16/2017 completed Not Available [facility] 05/01/2023 04:09:43 Influenza, adjuvanted, trivalent, PF 03/01/2018 completed Not Available [facility] 05/01/2023 04:09:43 Influenza, high-dose, quadrivalent, PF 03/12/2021 completed Not Available [facility] 05/01/2023 04:09:43 Influenza, high-dose, quadrivalent, PF 05/06/2022 completed Not Available [facility] 05/01/2023 04:09:44 COVID-19, mRNA, LNP-S, PF, 100 mcg/0.5mL dose or 50 mcg/0.25mL dose 11/01/2021 completed Not Available [facility] 05/01/2023 04:09:44 COVID-19, mRNA, LNP-S, PF, 100 mcg/0.5mL dose or 50 mcg/0.25mL dose 05/24/2021 completed Not Available [facility] 05/01/2023 04:09:44 SARS-COV-2 (COVID-19) vaccine, UNSPECIFIED 09/14/2020 completed Not Available [facility] 05/01/2023 04:09:45 COVID-19, mRNA, LNP-S, bivalent, PF, 30 mcg/0.3 mL dose 09/23/2022 completed Not Available [facility] 05/01/20 04:09:45 pneumococcal polysaccharide PPV23 04/21/2019 completed Not Available [facility] 2022 04:09:46 influenza, unspecified formulation 02/12/2012 completed Not Available [facility] 05/01/2023 04:09:46 influenza, unspecified formulation 02/25/2013 completed Not Available [facility] 05/01/2023 04:09:46 influenza, unspecified formulation 02/28/2011 completed Not Available [facility] 05/01/2023 04:09:46 influenza, unspecified formulation 03/08/2020 completed Not Available [facility] 05/01/2023 04:09:46 influenza, unspecified formulation 03/14/2014 completed Not Available [facility] 05/01/2023 04:09:46 influenza, unspecified formulation 03/22/2010 completed Not Available [facility] 05/01/2023 04:09:46 Influenza, high-dose, quadrivalent, PF 05/28/2023 completed DEAN CAMILO PA-C [address], [place], [address], [facility] 05/28/2023 13:29:03 COVID-19, mRNA, LNP-S, PF, ezio-sucrose, 30 mcg/0.3 mL 05/28/[address] [place], [address], [facility] 05/28/2023 13:29:03 Past Encounters Encounter ID Performer Location Encounter Start Date Encounter Closed Date Diagnosis/Indication Diagnosis SNOMED-CT Code Diagnosis ICD10 Code [id number] DEAN CAMILO PA-C [facility] [address] [place] [address] 01/06/2024 14:00:59 01/06/2024 14:58:34 Candidiasis of skin 16321824 B37.2 Gastroesop hageal reflux disease without esophagitis 937036407 K21.9 Essential hypertension 27370416 I10 Hyperlipidemia 43081732 E78.5 Neuropathy due to type 2 diabetes mellitus 2212790180 20922 E11.40 Paroxysmal atrial fibrillation 727645370 I48.0 Type 2 enid betes mellitus 50732643 E11.9 Onychomyco sis of toenails 108824895 B35.1 Goals Section Goal Description Status Start Date LastModified by Organization Details LastModified Time I want to be as healthy as I can be. I like going shopping and getting around Hope wants to stay independent. She enjoys taking the bus and running errands Goal not achieved LEONEL QUIGLEY Information not available 10/27/2023 19:35:37 Id like to visit my grandson in [place], but i don't know how I will [...] Member ID Adams Member ID Guarantor Name 01/06/2024 2 [facility] (MEDICAID) Hope Yogi Busby [id number] Hope Busby 01/06/2024 1 [facility] (MEDICARE REPLACEMENT/A DVANTAGE - PPO) [id number] Hope Busby [id number] Hope Busby Notes Date Note Type Note Provider Name and Address Organization Details Recorded Time 01/06/2024 text/html HPI Notes: Jose Rafael mock [...] her left lower leg. [address], [place], [address], [facility]. 01/06/2024 16:12:58 OBGyn Episode No OBEpisode recorded.
--- OUTSIDE RECORDS SUMMARY | 2024-02-24 19:39 | XMS_ITS | Encounter Summary ---
Author Organization [facility] [place] [address] Care Team Providers Care Sfd[employer] Developer Name Role Phone Dean Camilo Primary Care Provider Encounter Details Date Type Department Care Team (Late st Contact Info) Description 11/06/2023 [place] [id number] Edwige Rand, RN Social History Tobacco Use Types Packs/Day Years Used Date Smoking Tobacco: Former Cigarettes Q uit: 06/22/1979 Smokeless Tobacco: Never Comments:per phone call 01/02 Alcohol Use Standard Drinks/Week Comments Not Currently 0 (1 standard drink = 0.6 oz pur e alcohol) 1 drink every 3-4 months [facility] Utilities Answer Date Recorded In the past 12 months has [employer], gas, oil, or water [employer] threatened to shut off services in your [...] place to sleep or slept in a senior living (including now)? No 11/05/2023 IPV Inpatient Questions [...] - 11/06/2023 2:27 PM EDT Copied from [facility] #[id number]. Topic: Specialty Dept CRMs - Generic Call >> November 06, 2023 1:57 PM Bebeto Javed wrote: Specialist: None Relationship (if other than patient-full name): Shayla - charge nurse [facility] - [phone] Reason for Call: Shayla called to ask if the clinic has an 18 arabic hodge catheter they could have. Please contact Shayla to advise. documented in this encounter Plan of Treatment Not on file documented as of this encounter Visit Diagnoses Not on filedocumented in this encounter Care Teams Sfdc Developer Relationship Specialty Start Date End Date Dean Camilo PA [address] [place] [address] PCP - General Internal Medicine 02/01/21 documented as of this encounter
--- OUTSIDE RECORDS SUMMARY | 2024-02-24 19:39 | XMS_ITS | Encounter Summary ---
[place] [address] Care Team Providers Care Sticker Operator Name Role Phone Dean Camilo Primary Care Provider [phone] Reason for Referral * Home Health Care (Routine) - Authorized Specialty Diagnoses / Procedures Referred By Rommel bhat Referred To Contact Diagnoses Diabetic ketoacidosis with coma associated with other specified diabetes mellitus Nicolás Kothari MD [facility] [place] [address] Referral ID Status Reason Start Date Expiration Date Visits Requested Visits Authorized [id number] Authorized Consult, Test & Treat 11/23/2023 05/21/2024 999 999 Reason for Visit * Auth/Cert (Routine) Specialty Diagnoses / Procedures Referred By Rommel bhat Referred To Contact Diagnoses DKA (diabetic ketoacidosis) Bradycardia Procedures ER CHEMOI Kiko Che MD [facility] [place] [address] [facility] Referral ID Status Reason Start Date Expiration Date Visits Re quested Visits Authorized [id number] 1 1 Encounter Details Date Type Department Care Team (Late st Contact Info) Description 11/05/2023 2:58 AM EDT - 11/23/2023 2:00 PM EDT Hospital Encounter Surgical Unit Level 4 [place] [address] Kiko Che MD [facility] [place] [address] [place] [address] [place] [address] [place] [address] [place] [address] [place]ás [place] [address] Persistent atrial fibrillation; Wound of right lower [...] e alcohol) 1 drink every 3-4 months [facility] Utilities Answer Date Recorded In the past 12 months has e spigit, gas, oil, or water company threatened to [...] a senior living (including now)? No 11/05/2023 DH IPV Inpatient [...] Hope Yee Patient Age: 73 y.o. Language: Dutch Race: White Ethnicity: Not nor Admit date: 11/05/2023 Discharge date and time: 11/23/2023 12:42 PM Attending Physician: Nicolás Rodriguez MD Discharge Physician: Nicolás Kothari MD Follow-up Recommendations for Providers: PCP -Consider referral back to [facility] endocrinology if patient's diabetes is still not [...] please contact your inpatient physician through the [facility] Crystal Lapper . Issues afterhours and on weekends will [...] and prior TIA presenting in transfer from [facility] with bradycardia, hypotension, and hyperglycemia. Hope reports [...] resolution of bradycardia. On arrival to the [facility] ED, patient noted to be hypothermic with [...] g of IV ceftriaxone for suspected UTI. [facility] cardiology was consulted who reached out to [...] consulted while inpatient. She lives alone in [facility]. She has VNA come on Mondays and [...] tachybrady syndrome HR in the 30s-40s at [facility], meds were held and temporary pacing wire [...] control of diabetes. Consider referral back to [facility] endocrinology if patient's diabetes is still not [...] 168 hours. No results for input(s): PHART, AFJ0GRE, PO2ART, BQF6JND in the last 168 hours. Pending Studies and Lab Data: Intrinsic factor Discharge Conditions/Prognosis: Stable condition Discharge to: home with services Updated Allergies/ADRs: Allergies Allergen Reactions Trazodone hallucinations Immunizations Given this Hospitalization: Immunization History Administered Date(s) Administered Influenza Unspecified Formulation 03/16/2017 Influenza Vaccine, Whole 05/05/2007 Moderna Covid-19 Monovalent 12Yr+ (Electronic Page Makeup System Operator 100mcg) 05/24/2021, 11/01/2021 Pfizer Covid-19 Bivalent 12Yrs+ [...] at 3:00 pm. Your Inpatient Doctor(s) at [facility]: Dr. Nicolás Kothari [facility] [...] any issues or concerns once you leave [facility], we apologize for any undue stress this may cause. Please do not hesitate to call your PCP office or seek further medical assistance if there are any immediate [facility]. This questionnaire is not meant to [...] Home Health. Pts home address is below: [address] [place] [address] [address] [facility] [address] FYI- PT WILL BE DISCHARGING TO HER DAUGHTERS' HOME: at address [address] [place], [place] Beatriz, Phone Number: [phone] (home) [phone] (work) Date of : 1950 Inpatient DOCUMENTATION FOR VNA SERVICES (INCLUDING THOSE PATIENTS WITH MEDICARE COVERAGE REQUIRING HOME VNA SERVICES AND/OR HOSPICE SERVICES) PATIENT'S LOCATION: Hope Yee [address] [place] [phone] (home) Cell: Telephone Information: Exhaust Emissions Automotive Technician's Name:self In discussion with the attending physician, it is certified that this patient is under their care and that they, or a Nurse Practitioner, Clinical Nurse specialist or Physician Certified Medication Aide who is working directly with them, had [...] for managing ADLs. HOME HEALTH CARE AGENCY: [facility]. [address] [place] [address] START OF CARE: Home Health services requested [...] from this patient's PCP: KATHLEEN Retana [facility] [address] . All VNA agencies which cover the [...] at 3:00 pm. Your Inpatient Doctor(s) at [facility]: Dr. Nicolás Kothari [facility] [...] any issues or concerns once you leave [facility], we apologize for any undue stress this may cause. Please do not hesitate to call your PCP office or seek further medical assistance if there are any immediate [facility]. This questionnaire is not meant to [...] 1643 VBTEXTRPT Department: Vascular Surgery Lab Patient: [id number] (HOPE YEE) CPT: 07089 Referring Physician: JOAQUIM GEORGES Phone: Indications: Chronic [...] 11/05/2023 3:58 AM) Result Value WORKSTATION ID [id number] Impression Right IJ central venous catheter with [...] who have questions please contact the health career professional that requested your imaging first. Electronically signed by: Emeka Wolfe MD, [facility] ([phone]), at 11/05/2023 4:[address] Abdomen & Pelvis wo Contrast (Exam End: 11/11/2023 12:20 PM) Result Value WORKSTATION ID [id number] Impression Appropriate position of the suprapubic catheter, [...] who have questions please contact the health career professional that requested your imaging first. Electronically signed by: SUNSHINE ALCOCER MD, [facility] ([phone]), at 11/11/2023 1:06 PM TTE 11/05/23 Interpretation [...] and prior TIA presenting in transfer from [facility] with bradycardia, hypotension, and hyperglycemia. Hyperglycemia improving [...] her into a [place] near him in [place]. Anticipate if daughter could stay withher while [...] intubation is permitted Team Pager( Coverage 12/01): #[phone] PCP: KATHLEEN Retana [phone] IPI Certification I certify that I am a D-H credentialed attending provider with admitting privileges and that the patient meets or has met medical necessity to require an inpatient IPI level of care meeting a minimumof two midnights or is on the [facility] inpatient only procedure list (status C) due to: acute kidney injury necessitating close monitoring of fluid balance such as intravenous fluids and/or titration of medication to achieve optimal effect and minimize the chance of immediate or severe side effects iNcolás Kothari MD 11/22/2023 * Nicolás Kothari MD [...] 1643 VBTEXTRPT Department: Vascular Surgery Lab Patient: [id number] (HOPE YEE) CPT: 60684 Referring Physician: JOAQUIM GEORGES Phone: Indications: Chronic [...] 11/05/2023 3:58 AM) Result Value WORKSTATION ID [id number] Impression Right IJ central venous catheter with [...] who have questions please contact the health career professional that requested your imaging first. Electronically signed by: Emeka Wolfe MD, [facility] ([phone]), at 11/05/2023 4:[address] Abdomen & Pelvis wo Contrast (Exam End: 11/11/2023 12:20 PM) Result Value WORKSTATION ID [id number] Impression Appropriate position of the suprapubic catheter, [...] who have questions please contact the health career professional that requested your imaging first. Electronically signed by: SUNSHINE ALCOCER MD, [facility] ([phone]), at 11/11/2023 1:06 PM TTE 11/05/23 Interpretation [...] and prior TIA presenting in transfer from [facility] with bradycardia, hypotension, and hyperglycemia. Hyperglycemia improving but with some hypoglycemia and adjusting insulin - appreciate DM assistance. HR overall improved. Safe for home alone per PT/OT with daily check-ins and explore daughter if can help support (for DMmanagement and rate control/medications) as worry about her managing her insulin. Son is reportedlyworking on getting her into a [place] near him in [place]. Anticipate if daughter could stay withher while son explores [facility]TER[facility] that may be viable. #Recurrent symptomatic Bradycardia, [...] intubation is permitted Team Pager( Coverage 12/01): #[phone] PCP: KATHLEEN Retana [phone] IPI Certification I certify that I am a D-H credentialed attending provider with admitting privileges and that the patient meets or has met medical necessity to require an inpatient IPI level of care meeting a minimumof two midnights or is on the [facility] inpatient only procedure list (status C) due [...] provided Patient screened for follow up and junior underwriter spoke with pt over the phone. Pt [...] unless consulted in the interim. MG Elliott Drawer Upfitter * Angelika Woody P - 11/20/2023 2:59 PM EDT Called patient's daughter Beatriz around 2pm to assess readiness and willingness to have her mother stay at her house. Beatriz stated she is open to having her mother stay in a camper in [facility] for as long as she needs. Reports she lives [place] the [place] [facility] so would not be living on the same property as her mother, but could provide some support. Beatriz also states that from the camper, her mother would have access to some public transportation to get herself to [facility] or other places to get her medications. [...] '[employer]' or '[employer]' in [place]. She reports that she is somebody who has been helping her since her 'troubles' with the federal government 'a long time ago'. Reports having paid part of a large loan (total loan over $20,000) with a remaining $13,000 to pay off. Although she does not provide a detailed explanation for what the loan is for, she believes that she would go backto custodial if she stops paying it. Additionally, she believes that if she does not finish paying off her debt, that all the money she has 'put in' will have been for nothing and she will still have to pay the full loan. She believes Braulio Cristina's business to be legal, as she [...] 'fresh start'. Angelika Woody, Medical Student Pager #[phone] * Idania Matthews MD - 11/20/2023 1:15 [...] 1643 VBTEXTRPT Department: Vascular Surgery Lab Patient: [id number] (HOPE YEE) CPT: 98801 Referring Physician: JOAQUIM GEORGES Phone: Indications: Chronic [...] 11/05/2023 3:58 AM) Result Value WORKSTATION ID [id number] Impression Right IJ central venous catheter with [...] who have questions please contact the health career professional that requested your imaging first. Electronically signed by: Emeka Wolfe MD, [facility] ([phone]), at 11/05/2023 4:[address] Abdomen & Pelvis wo Contrast (Exam End: 11/11/2023 12:20 PM) Result Value WORKSTATION ID [id number] Impression Appropriate position of the suprapubic catheter, [...] who have questions please contact the health career professional that requested your imaging first. Electronically signed by: SUNSHINE ALCOCER MD, [facility] ([phone]), at 11/11/2023 1:06 PM TTE 11/05/23 Interpretation [...] and prior TIA presenting in transfer from [facility] with bradycardia, hypotension, and hyperglycemia. Hyperglycemia improving but with some hypoglycemia and adjusting insulin - appreciate DM assistance. HR overall improved. Safe for home alone per PT/OT with daily check-ins and explore daughter if can help support (for DMmanagement and rate control/medications) as worry about her managing her insulin. Son is reportedlyworking on getting her into a [facility] near him in [place]. Anticipate if daughter could stay withher while son explores LONGTER[facility] that may be viable but continue to [...] intubation is permitted Team Pager( Coverage 12/01): #[phone] PCP: KATHLEEN Retana [phone] IPI Certification I certify that I am [...] catheter, and prior TIA presenting intransfer from [facility] with bradycardia, hypotension, and hyperglycemia. Past Medical History Past Medical History: Diagnosis Date Atrial fibrillation Diabetes mellitus GERD (gastroesophageal reflux disease) Hypertension Melanoma in situ s/p removal Rheumatoid arthritis SVT (supraventricular tachycardia) Past Surgical History Past Surgical History: Procedure Laterality Date SECTION JOINT REPLACEMENT Social History: Patient lives alone in [place], [place] with her Aggie rai Home Setup: [...] cognitive assessment. O: Patient participated in MoCA ([place] Cognitive Assessment) version 8.2 today. Pasquale Cognitive Assessment (MoCA) Results: Comments Visuospatial/Exec 0/1 Trails Test Lenny a line going from p-g-l-3-4-1-d-c 0/1 Cube Copy Chair orientation was off [...] Pt participated in the administration of the [place] Cognitive Assessment, (MOCA). Pt received a score [...] Total Minutes, Occupational Therapy: 25 (cog x2 ([id number])) Pager: [phone] Kendra Peterson, OT 11/21/2023 Occupational Therapy Rehabilitation Department * Siria Peres, MECHANIC RECOVERY - 11/20/2023 11:15 AM EDT Follow Up [...] worked with Court [address] up in [facility] and should re-engage Siria Peres APRN [facility] Endocrinology Diabetes Management Pager [phone] Weekends please page [phone] * Jonathan Fall PTA - 11/20/2023 10:53 AM EDT Physical Therapy Intervention Note Treatment Number PT: 4 Total duration of encounter: 15 days Patient profile: Hope Yee is a 73 y.o. female with PMH of HTN, atrial fibrillation on rivaroxaban, poorly-controlled T2DM, CKD, chronic indwelling suprapubic catheter, and prior TIA presenting in transfer from [facility] with bradycardia, hypotension, and hyperglycemia. Interval History: [...] alone with her parrot Echo. Lives in [facility] in apt building with elevator [...] lives 40 miles away, son lives in [place] Precautions/Special Considerations: DNR/limited code, fall risk, PIV, [...] MET 11/10 Total Minutes, Physical Therapy: 18 ([id number]) Billing Code: TEFx1 Thank you for this consult. Jonathan Fall PTA Pager: [phone] Physical Therapy Inpatient Rehabilitation Department * Angelika [...] and prior TIA presenting in transfer from [facility] with bradycardia, hypotension, and hyperglycemia. 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 MAKEUP ARTIST, have gone up to 58 units during [...] CPR - Inpatient PCP: KATHLEEN Retana at [phone] Angelika Varneret Pager # [phone] * Idania Matthews MD - 11/19/2023 5:29 [...] 1643 VBTEXTRPT Department: Vascular Surgery Lab Patient: [id number] (HOPE YEE) CPT: 38849 Referring Physician: JOAQUIM GEORGES Phone: Indications: Chronic [...] 11/05/2023 3:58 AM) Result Value WORKSTATION ID [id number] Impression Right IJ central venous catheter with [...] who have questions please contact the health career professional that requested your imaging first. Electronically signed by: Emeka Wolfe MD, [facility] ([phone]), at 11/05/2023 4:[address] Abdomen & Pelvis wo Contrast (Exam End: 11/11/2023 12:20 PM) Result Value WORKSTATION ID [id number] Impression Appropriate position of the suprapubic catheter, [...] who have questions please contact the health career professional that requested your imaging first. Electronically signed by: SUNSHINE ALCOCER MD, [facility] ([phone]), at 11/11/2023 1:06 PM TTE 11/05/23 Interpretation [...] and prior TIA presenting in transfer from [facility] with bradycardia, hypotension, and hyperglycemia. Hyperglycemia improving but with some hypoglycemia and adjusting insulin - appreciate DM assistance. HR overall improved. Safe for home alone per PT/OT with daily check-ins and explore daughter if can help support (for DMmanagement and rate control/medications) as worry about her managing her insulin. Son is reportedlyworking on getting her into a [facility] near him in [place]. Anticipate if daughter could stay withher while [...] intubation is permitted Team Pager( Coverage 12/01): #[phone] PCP: KATHLEEN Retana [phone] IPI Certification I certify that I am [...] and prior TIA presenting in transfer from [facility] with bradycardia, hypotension, and hyperglycemia. 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 MAKEUP ARTIST, have gone up to 58 units during [...] CPR - Inpatient PCP: KATHLEEN Retana at [phone] Angelika Woody Pager # [phone] * Siria Peres APRN - 11/19/2023 7:10 [...] Has worked with Court NEGRO up in [facility] and should re-engage Siria Peres APRN [facility] Endocrinology Diabetes Management Pager [phone] Weekends please page [phone] * Idania Matthews MD - 11/18/2023 6:17 [...] 1643 VBTEXTRPT Department: Vascular Surgery Lab Patient: [id number] (HOPE YEE) CPT: 87555 Referring Physician: JOAQUIM GEORGES Phone: Indications: Chronic [...] 11/05/2023 3:58 AM) Result Value WORKSTATION ID [id number] Impression Right IJ central venous catheter with [...] who have questions please contact the health career professional that requested your imaging first. Electronically signed by: Emeka Wolfe MD, [facility] ([phone]), at 11/05/2023 4:[address] Abdomen & Pelvis wo Contrast (Exam End: 11/11/2023 12:20 PM) Result Value WORKSTATION ID [id number] Impression Appropriate position of the suprapubic catheter, [...] who have questions please contact the health career professional that requested your imaging first. Electronically signed by: SUNSHINE ALCOCER MD, [facility] ([phone]), at 11/11/2023 1:06 PM TTE 11/05/23 Interpretation [...] and prior TIA presenting in transfer from [facility] with bradycardia, hypotension, and hyperglycemia. Hyperglycemia improving but with some hypoglycemia and adjusting insulin - appreciate DM assistance. HR overall improved. Safe for home alone per PT/OT with daily check-ins and explore daughter if can help support (for DMmanagement and rate control/medications). Son is reportedly working on getting her into a [facility] near him in [place]. Anticipate if daughter could stay with her while son explores LONGTERM that may be viable. Check MOCA today. [...] intubation is permitted Team Pager( Coverage 12/01): #[phone] PCP: KATHLEEN Retana [phone] IPI Certification I certify that I am a D-H credentialed attending provider with admitting privileges and that the patient meets or has met medical necessity to require an inpatient IPI level of care meeting a minimumof two midnights or is on the [facility] inpatient only procedure list (status C) due [...] and prior TIA presenting in transfer from [facility] with bradycardia, hypotension, and hyperglycemia. 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 Electronically signed by: Emeka Wolfe MD, [facility] ([phone]), at 11/05/2023 4:[address] Abdomen & Pelvis wo Contrast (Exam End: 11/11/2023 12:20 PM) Result Value WORKSTATION ID [id number] Impression Appropriate position of the suprapubic catheter, [...] who have questions please contact the health career professional that requested your imaging first. Electronically signed by: SUNSHINE ALCOCER MD, [facility] ([phone]), at 11/11/2023 1:06 PM TTE 11/05/23 Interpretation [...] and prior TIA presenting in transfer from [facility] with bradycardia, hypotension, and hyperglycemia. Hyperglycemia improving and appreciate DM assistance. HR overall improved. Increased to 300mg today. Safe for home alone per PT/OT with daily check-ins and explore daughter if can help support (for DMmanagement and rate control/medications). Son is reportedly working on getting her into a [facility] near him in [place]. Anticipate if daughter could stay with her [...] intubation is permitted Team Pager(MD Coverage 12/01): #[phone] PCP: KATHLEEN Retana [phone] IPI Certification I certify that I am a D-H credentialed attending provider with admitting privileges and that the patient meets or has met medical necessity to require an inpatient IPI level of care meeting a minimumof two midnights or is on the [facility] inpatient only procedure list (status C) due to: acute kidney injury necessitating close monitoring of fluid balance such as intravenous fluids and/or titration of medication to achieve optimal effect and minimize the chance of immediate or severe side effects Idania Matthews MD 11/17/2023 * Varghese Chanel - 11/17/2023 2:24 PM EDT Blood Tester Encounter Note Patient Name: Hope Yee : [id number] MR#: [id number] Admit Date: 11/05/2023 2:58 AM Hospital Day 12 days Narrative:Visited to introduce and assess acceptance of Blood Tester services. Pt was not available and I will visit another time. Assessment: Intervention and Outcome: Follow-up: Time in Direct Care: Varghese Chanel 11/17/2023 * Eugenie Mauricio, MECHANIC RECOVERY - 11/17/2023 11:41 AM EDT Images from [...] working Has worked with Court sánchez in [facility] and should re-engage 40 minutes of this [...] catheter, and prior TIA presenting intransfer from [facility] with bradycardia, hypotension, and hyperglycemia. Past Medical History Past Medical History: Diagnosis Date Atrial fibrillation Diabetes mellitus GERD (gastroesophageal reflux disease) Hypertension Melanoma in situ s/p removal Rheumatoid arthritis SVT (supraventricular tachycardia) Past Surgical History Past Surgical History: Procedure Laterality Date SECTION JOINT REPLACEMENT Social History: Patient lives alone in [place], [place] with her Aggie rai Home Setup: [...] tasks in the room and encouragement from medical staffing coordinator. Pt lives alone with limited social support. [...] 2-3 times/wk Total Minutes, Occupational Therapy: 43 ([facility] x3 ([phone])) Pager: [phone] Kendra Peterson OT 11/17/2023 Occupational Therapy Rehabilitation Department * Oak Hills[place] bentonance P - 11/17/2023 7:45 AM EDT [...] and prior TIA presenting in transfer from [facility] with bradycardia, hypotension, and hyperglycemia. 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 MAKE[employer] ARTIST, have gone up to 58 units during [...] CPR - Inpatient PCP: KATHLEEN Retana at [phone] Angelika Manrique [place] Pager # [phone] * Idania Matthews MD - 11/16/2023 9:31 [...] if we know anything from bother for MAGAL[facility]. Physical Exam Vitals Range last 24 hrs [...] 1643 VBTEXTRPT Department: Vascular Surgery Lab Patient: [id number] (HOPE YEE) CPT: 24240 Referring Physician: JOAQUIM GEORGES Phone: Indications: Chronic [...] 11/05/2023 3:58 AM) Result Value WORKSTATION ID [id number] Impression Right IJ central venous catheter with [...] who have questions please contact the health career professional that requested your imaging first. Electronically signed by: Emeka Wolfe MD, [facility] ([phone]), at 11/05/2023 4:[address] Abdomen & Pelvis wo Contrast (Exam End: 11/11/2023 12:20 PM) Result Value WORKSTATION ID [id number] Impression Appropriate position of the suprapubic catheter, [...] who have questions please contact the health career professional that requested your imaging first. Electronically signed by: SUNSHINE ALCOCER MD, [facility] ([phone]), at 11/11/2023 1:06 PM TTE 11/05/23 Interpretation [...] and prior TIA presenting in transfer from [facility] with bradycardia, hypotension, and hyperglycemia. Hyperglycemia improving [...] is working on getting her into a [facility] near him in [place]. Anticipate if daughter could stay with her while son explores MAGAL[facility] that may be viable. Also report of [...] intubation is permitted Team Pager(MD Coverage 12/01): #[phone] PCP: KATHLEEN Retana [phone] IPI Certification I certify that I am a D-H credentialed attending provider with admitting privileges and that the patient meets or has met medical necessity to require an inpatient IPI level of care meeting a minimumof two midnights or is on the [facility] inpatient only procedure list (status C) due to: acute kidney injury necessitating close monitoring of fluid balance such as intravenous fluids and/or titration of medication to achieve optimal effect and minimize the chance of immediate or severe side effects Idania aMtthews MD 11/16/2023 * Judy Gould RN - [...] leads Confirmed by fellow DeLago, MD, Mateo ([id number]) on 11/05/2023 2:07:55 PM Confirmed by MD Funk Danette ([id number]) on 11/06/2023 5:30:09 PM QTCCALC 492 VASCULAR: Recent Labs 11/09/23 1643 VBTEXTRPT Department: Vascular Surgery Lab Patient: [id number] (HOPE YEE) CPT: 82286 Referring Physician: JOAQUIM GEORGES Phone: Indications: Chronic [...] 11/05/2023 3:58 AM) Result Value WORKSTATION ID [id number] Impression Right IJ central venous catheter with [...] who have questions please contact the health career professional that requested your imaging first. Electronically signed by: Emeka Wolfe MD, [facility] ([phone]), at 11/05/2023 4:[address] Abdomen & Pelvis wo Contrast (Exam End: 11/11/2023 12:20 PM) Result Value WORKSTATION ID [id number] Impression Appropriate position of the suprapubic catheter, [...] who have questions please contact the health career professional that requested your imaging first. Electronically signed by: SUNSHINE ALCOCER MD, [facility] ([phone]), at 11/11/2023 1:06 PM TTE 11/05/23 Interpretation [...] and prior TIA presenting in transfer from [facility] with bradycardia, hypotension, and hyperglycemia. Hyperglycemia improving [...] is working on getting her into a [facility] near him in [place]. Anticipate if daughter could stay with her while son explores [facility] that may be viable. Also report of [...] intubation is permitted Team Pager( Coverage 12/01): #[phone] PCP: KATHLEEN Retana [phone] IPI Certification I certify that I am [...] leads Confirmed by fellow MD Johnson Augustin ([id number]) on 11/05/2023 2:07:55 PM Confirmed by MD Funk Danette ([id number]) on 11/06/2023 5:30:09 PM QTCCALC 492 VASCULAR: Recent Labs 11/09/23 1643 VBTEXTRPT Department: Vascular Surgery Lab Patient: [id number] (HOPE YEE) CPT: 24389 Referring Physician: JOAQUIM GEORGES Phone: Indications: Chronic [...] 11/05/2023 3:58 AM) Result Value WORKSTATION ID [id number] Impression Right IJ central venous catheter with [...] who have questions please contact the health career professional that requested your imaging first. Electronically signed by: Emeka Wolfe MD, [facility] ([phone]), at 11/05/2023 4:[address] Abdomen & Pelvis wo Contrast (Exam End: 11/11/2023 12:20 PM) Result Value WORKSTATION ID [id number] Impression Appropriate position of the suprapubic catheter, [...] who have questions please contact the health career professional that requested your imaging first. Electronically signed by: SUNSHINE ALCOCER MD, [facility] ([phone]), at 11/11/2023 1:06 PM TTE 11/05/23 Interpretation [...] and prior TIA presenting in transfer from [facility] with bradycardia, hypotension, and hyperglycemia. Hyperglycemia improving and appreciate DM assistance. HR overall improved. Consider from 250mg to 300mg in coming days as may be easier for dosing. Safe for home alone per PT/OT with daily check-ins and would be helpful to address with daughter ifcan help support (for DM management and rate control/medications. Son is working on getting her into a [facility] near him in [place]. Anticipate if daughter could stay with her while son explores [facility]TER[facility] that may be viable. Also report of [...] intubation is permitted Team Pager( Coverage 12/01): #[phone] PCP: KATHLEEN Retana [phone] IPI Certification I certify that I am a D-H credentialed attending provider with admitting privileges and that the patient meets or has met medical necessity to require an inpatient IPI level of care meeting a minimumof two midnights or is on the [facility] inpatient only procedure list (status C) due [...] and prior TIA presenting in transfer from [facility] with bradycardia, hypotension, and hyperglycemia. 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) - Daily BMP, mag, phos #UTI Patient [...] CPR - Inpatient PCP: KATHLEEN Retana at [phone] Angelika Woody Pager # [phone] * Paola Ramirez DT - 11/13/2023 3:21 PM EDT Nutrition Services Note - Low Nutrition Acuity Hope Yee is a 73 y.o. female Reason for intervention: hospital day 9 Nutrition Plan: Continue current diet Encourage good po Vitamin B12 and insulin noted Wound noted Patient screened for hospital length of stay and junior underwriter attempted to meet pt at bedside, unsuccessful. [...] unless consulted in the interim. MG Elliott Drawer Upfitter * Zoe Cleveland, MECHANIC RECOVERY - 11/13/2023 1:55 PM EDT Follow Up [...] and snack 3.Lispro 1:10>140 Zoe Cleveland APRN [facility] Endocrinology Diabetes Management Pager [phone] 35 minute visit was spent evaluating diabetes [...] leads Confirmed by fellow MD Johnson Augustin ([id number]) on 11/05/2023 2:07:55 PM Confirmed by MD Funk Danette ([id number]) on 11/06/2023 5:30:09 PM QTCCALC 492 VASCULAR: Recent Labs 11/09/23 1643 VBTEXTRPT Department: Vascular Surgery Lab Patient: [id number] (HOPE YEE) CPT: 79661 Referring Physician: JOAQUIM GEORGES Phone: Indications: Chronic [...] 11/05/2023 3:58 AM) Result Value WORKSTATION ID [id number] Impression Right IJ central venous catheter with [...] who have questions please contact the health career professional that requested your imaging first. Electronically signed by: Emeka Wolfe MD, [facility] ([phone]), at 11/05/2023 4:[address] Abdomen & Pelvis wo Contrast (Exam End: 11/11/2023 12:20 PM) Result Value WORKSTATION ID [id number] Impression Appropriate position of the suprapubic catheter, [...] who have questions please contact the health career professional that requested your imaging first. Electronically signed by: SUNSHINE ALCOCER MD, [facility] ([phone]), at 11/11/2023 1:06 PM TTE 11/05/23 Interpretation [...] and prior TIA presenting in transfer from [facility] with bradycardia, hypotension, and hyperglycemia. Somewhat challenge [...] is working on getting her into a [employer] near him in [place] which would be her preferred discharge plan [...] intubation is permitted Team Pager( Coverage 12/01): #[phone] PCP: KATHLEEN Retana [phone] IPI Certification I certify that I am a D-H credentialed attending provider with admitting privileges and that the patient meets or has met medical necessity to require an inpatient IPI level of care meeting a minimumof two midnights or is on the [facility] inpatient only procedure list (status C) due [...] and prior TIA presenting in transfer from [facility] with bradycardia, hypotension, and hyperglycemia. 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) - Daily BMP, mag, phos #UTI Patient [...] CPR - Inpatient PCP: KATHLEEN Retana at [phone] Angelika Manrique [place] Pager # [phone] * Francis Roberts MD - 11/12/2023 3:55 [...] leads Confirmed by fellow MD Johnson Augustin ([id number]) on 11/05/2023 2:07:55 PM Confirmed by MD Funk Danette ([id number]) on 11/06/2023 5:30:09 PM QTCCALC 492 VASCULAR: Recent Labs 11/09/23 1643 VBTEXTRPT Department: Vascular Surgery Lab Patient: [id number] (HOPE YEE) CPT: 38108 Referring Physician: JOAQUIM GEORGES Phone: Indications: Chronic [...] 11/05/2023 3:58 AM) Result Value WORKSTATION ID [id number] Impression Right IJ central venous catheter with [...] who have questions please contact the health career professional that requested your imaging first. Electronically signed by: Emeka Wolfe MD, [facility] ([phone]), at 11/05/2023 4:[address] Abdomen & Pelvis wo Contrast (Exam End: 11/11/2023 12:20 PM) Result Value WORKSTATION ID [id number] Impression Appropriate position of the suprapubic catheter, [...] who have questions please contact the health career professional that requested your imaging first. Electronically signed by: SUNSHINE ALCOCER MD, [facility] ([phone]), at 11/11/2023 1:06 PM TTE 11/05/23 Interpretation [...] and prior TIA presenting in transfer from [facility] with bradycardia, hypotension, and hyperglycemia. #Recurrent symptomatic [...] intubation is permitted Team Pager( Coverage 12/01): #[phone] PCP: KATHLEEN Retana [phone] Attestation: IPI Certification I certify that I am a D-H credentialed attending provider with admitting privileges and that the patient meets or has met medical necessity to require an inpatient IPI level of care meeting a minimumof two midnights or is on the [facility] inpatient only procedure list (status C) due [...] and prior TIA presenting in transfer from [facility] with bradycardia, hypotension, and hyperglycemia. Plan: #Bradycardia - resolved #Atrial fibrillation # Elevated BNP #Hx of ?tachybrady syndrome HR in the 30s-40s at [facility], meds were held and temporary pacing wire [...] CPR - Inpatient PCP: KATHLEEN Retana at [phone] Angelika Woody Pager # [phone] * Zoe Cleveland, MECHANIC RECOVERY - 11/12/2023 7:14 AM EDT Follow Up [...] and snack 3.Lispro 1:10>140 Zoe Cleveland APRN [facility] Endocrinology Diabetes Management Pager [phone] 35 minute visit was spent evaluating diabetes [...] leads Confirmed by fellow MD Johnson Augustin ([id number]) on 11/05/2023 2:07:55 PM Confirmed by MD Funk Danette ([id number]) on 11/06/2023 5:30:09 PM QTCCALC 492 VASCULAR: Recent Labs 11/09/23 1643 VBTEXTRPT Department: Vascular Surgery Lab Patient: [id number] (HOPE YEE) CPT: 20224 Referring Physician: JOAQUIM GEORGES Phone: Indications: Chronic [...] 11/05/2023 3:58 AM) Result Value WORKSTATION ID [id number] Impression Right IJ central venous catheter with [...] who have questions please contact the health career professional that requested your imaging first. Electronically signed by: Emeka Wolfe MD, [facility] ([phone]), at 11/05/2023 4:[address] Abdomen & Pelvis wo Contrast (Exam End: 11/11/2023 12:20 PM) Result Value WORKSTATION ID [id number] Impression Appropriate position of the suprapubic catheter, [...] who have questions please contact the health career professional that requested your imaging first. Electronically signed by: SUNSHINE ALCOCER MD, [facility] ([phone]), at 11/11/2023 1:06 PM TTE 11/05/23 Interpretation [...] and prior TIA presenting in transfer from [facility] with bradycardia, hypotension, and hyperglycemia. #Recurrent symptomatic [...] intubation is permitted Team Pager( Coverage 12/01): #[phone] PCP: KATHLEEN Retana [phone] Attestation: IPI Certification I certify that I am a D-H credentialed attending provider with admitting privileges and that the patient meets or has met medical necessity to require an inpatient IPI level of care meeting a minimumof two midnights or is on the [facility] inpatient only procedure list (status C) due [...] and prior TIA presenting in transfer from [facility] with bradycardia, hypotension, and hyperglycemia. Interval History/Events: -rule out c diff, MELVA, contact precautions due to bed bugs at home, malfunctioning suprapubic catheter. Not yet MR today Social History: Patient lives alone with her bridget Echo. Lives in [facility] in [facility] with elevator access. Normally uses elevator. [...] lives 40 miles away, son lives in [place] Precautions/Special Considerations: DNR/limited code, Contact precautions (bed [...] VSS MET 11/10 Time IN / OUT: 4312-3606 Total Minutes, Physical Therapy: 30 Billing Code: x2 TEF Thank you for this consult. Laurie Perez, PT Pager: [phone] Physical Therapy Inpatient Rehabilitation Department * Zoe Cleveland, MECHANIC RECOVERY - 11/11/2023 12:19 PM EDT Follow Up [...] and snack 3.Lispro 1:20>140 Zoe Cleveland APRN [facility] Endocrinology Diabetes Management Pager [phone] 35 minute visit was spent evaluating diabetes [...] and prior TIA presenting in transfer from [facility] with bradycardia, hypotension, and hyperglycemia. Plan: #Bradycardia - resolved #Atrial fibrillation # Elevated BNP #Hx of ?tachybrady syndrome HR in the 30s-40s at [facility], meds were held and temporary pacing wire [...] CPR - Inpatient PCP: KATHLEEN Retana at [phone] Angelika Woody Pager # [phone] * Ita Qiu - 11/11/2023 9:31 AM EDT 11/11/23921 [facility] Care Medicaid Referral Date 11/11/23 Referral By Jania Stout Received a referral to assist patient and their family in applying for [facility] Medicaid. * Francis Roberts MD - 11/10/2023 [...] leads Confirmed by fellow MD Johnson Augustin ([id number]) on 11/05/2023 2:07:55 PM Confirmed by MD Funk Danette ([id number]) on 11/06/2023 5:30:09 PM QTCCALC 492 VASCULAR: Recent Labs 11/09/23 1643 VBTEXTRPT Department: Vascular Surgery Lab Patient: [id number] (HOPE YEE) CPT: 88035 Referring Physician: JOAQUIM GEORGES Phone: Indications: Chronic [...] 11/05/2023 3:58 AM) Result Value WORKSTATION ID [id number] Impression Right IJ central venous catheter with [...] who have questions please contact the health career professional that requested your imaging first. Electronically signed by: Emeka Wolfe MD, [facility] ([phone]), at 11/05/2023 4:37 AM TTE 11/05/23 Interpretation Summary Normal left ventricular [...] and prior TIA presenting in transfer from [facility] with bradycardia, hypotension, and hyperglycemia. #Recurrent symptomatic [...] intubation is permitted Team Pager( Coverage 12/01): #[phone] PCP: KATHLEEN Retana [phone] Attestation: IPI Certification I certify that I am a D-H credentialed attending provider with admitting privileges and that the patient meets or has met medical necessity to require an inpatient IPI level of care meeting a minimumof two midnights or is on the [facility] inpatient only procedure list (status C) due [...] and prior TIA presenting in transfer from [facility] with bradycardia, hypotension, and hyperglycemia. Past Medical History Past Medical History: Diagnosis Date Atrial fibrillation Diabetes mellitus GERD (gastroesophageal reflux disease) Hypertension Melanoma in situ s/p removal Rheumatoid arthritis SVT (supraventricular tachycardia) Past Surgical History Past Surgical History: Procedure Laterality Date SECTION JOINT REPLACEMENT Social History: Patient lives alone in [place], [place] with her bridgetAggie Home Setup: apt [...] swing bed rehabilitation facility (vs. home to [facility] with home health services.) Daily schedule / [...] 33 (10:47-11:20 (self care mgmt x2)) Pager: [phone] REBEL MARRERO, YVONNE 11/10/2023 Occupational Therapy Rehabilitation Department * Laurie Perez, PT - 11/10/2023 8:31 AM EDT Physical Therapy Intervention Note Treatment Number PT: 2 Total duration of encounter: 5 days Patient profile: Hope Yee is a 73 y.o. female with PMH of HTN, atrial fibrillation on rivaroxaban, poorly-controlled T2DM, CKD, chronic indwelling suprapubic catheter, and prior TIA presenting in transfer from [facility] with bradycardia, hypotension, and hyperglycemia. Interval History/Events: No significant events Social History: Patient lives alone with her bridget Echo. Lives in [facility] in apt building with elevator [...] lives 40 miles away, son lives in [place] Precautions/Special Considerations: DNR/limited code, fall risk, PIV, [...] Dynamic / Gait: fair with FWW, CGA. [place] on two-handed assistive device Self Care: Changed [...] ready for hospital discharge. *recommend resources/looking into [facility] Discharge recommendation is based on the patient's [...] positioning with VSS Time IN / OUT: 4177-2483 Total Minutes, Physical Therapy: 35 Billing Code: x2 TEF Thank you for this consult. Laurie Perez, PT Pager: [phone] Physical Therapy Inpatient Rehabilitation Department * Angelika [...] and prior TIA presenting in transfer from [facility] with bradycardia, hypotension, and hyperglycemia. Plan: #Bradycardia - resolved #Atrial fibrillation # Elevated BNP #Hx of ?tachybrady syndrome HR in the 30s-40s at [facility], meds were held and temporary pacing wire [...] CPR - Inpatient PCP: KATHLEEN Retana at [phone] Angelika Woody Pager # [phone] * Zoe Cleveland, MECHANIC RECOVERY - 11/10/2023 6:42 AM EDT Follow Up [...] and snack 3.Lispro 1:20>140 Zoe Cleveland APRN [facility] Endocrinology Diabetes Management Pager [phone] Recommend discontinuing Farxiga or any SGLT2 due [...] and prior TIA presenting in transfer from [facility] with bradycardia, hypotension, and hyperglycemia. Past Medical History: Diagnosis Date Atrial fibrillation Diabetes mellitus GERD (gastroesophageal reflux disease) Hypertension Melanoma in situ s/p removal Rheumatoid arthritis SVT (supraventricular tachycardia) Past Surgical History: Procedure Laterality Date SECTION JOINT REPLACEMENT Social History: Patient lives alone in [place], [place] with her Aggie rai Home Setup: [...] for a task light-may benefit from and/or [place] [employer] referral Communication: WFL [...] and measurable assessment of functional outcome. Pager: [phone] RAYSA URBAN OT 11/09/2023 Occupational Therapy Rehabilitation [...] leads Confirmed by fellow MD Johnson Augustin ([id number]) on 11/05/2023 2:07:55 PM Confirmed by MD Funk Danette ([id number]) on 11/06/2023 5:30:09 PM QTCCALC 492 VASCULAR: Recent Labs 11/09/23 1643 VBTEXTRPT Department: Vascular Surgery Lab Patient: [id number] (HOPE YEE) CPT: 46418 Referring Physician: JOAQUIM GEORGES Phone: Indications: Chronic [...] 11/05/2023 3:58 AM) Result Value WORKSTATION ID [id number] Impression Right IJ central venous catheter with [...] who have questions please contact the health career professional that requested your imaging first. 11/05/23 Interpretation [...] and prior TIA presenting in transfer from [facility] with bradycardia, hypotension, and hyperglycemia. #Recurrent symptomatic [...] intubation is permitted Team Pager( Coverage 12/01): #[phone] PCP: KATHLEEN Retana [phone] Attestation: IPI Certification I certify that I am a D-H credentialed attending provider with admitting privileges and that the patient meets or has met medical necessity to require an inpatient IPI level of care meeting a minimumof two midnights or is on the [facility] inpatient only procedure list (status C) due [...] and prior TIA presenting in transfer from [facility] with bradycardia, hypotension, and hyperglycemia. Patient with the following active problems: Past Medical History: Diagnosis Date Atrial fibrillation Diabetes mellitus GERD (gastroesophageal reflux disease) Hypertension Melanoma in situ s/p removal Rheumatoid arthritis SVT (supraventricular tachycardia) Past Surgical History: Procedure Laterality Date SECTION JOINT REPLACEMENT Social History: Patient lives alone with her parrot Echo. Lives in [facility] in apt building with elevator [...] in this evaluation. Time IN / OUT: 0321-1717 Total Minutes, Physical Therapy: 38 Billing Code: x1 [place] Thank you for this consult. Laurie Perez, PT Pager: [phone] Physical Therapy Inpatient Rehabilitation Department * Zoe Cleveland, MECHANIC RECOVERY - 11/09/2023 8:08 AM EDT Follow Up [...] and snack 3.Lispro 1:20>140 Zoe Cleveland APRN [facility] Endocrinology Diabetes Management Pager [phone] 35 minute visit was spent evaluating diabetes [...] and prior TIA presenting in transfer from [facility] with bradycardia, hypotension, and hyperglycemia. Plan: #Bradycardia - resolved #Atrial fibrillation # Elevated BNP #Hx of ?tachybrady syndrome HR in the 30s-40s at [facility], meds were held and temporary pacing wire [...] CPR - Inpatient PCP: KATHLEEN Retana at [phone] Angelika Woody Pager # [phone] * Francis Roberts MD - 11/08/2023 3:44 [...] leads Confirmed by fellow MD Johnson Augustin ([id number]) on 11/05/2023 2:07:55 PM Confirmed by MD Funk Danette ([id number]) on 11/06/2023 5:30:09 PM QTCCALC 492 VASCULAR: No results for input(s): VBTEXTRPT in the last 720 hours. IMAGING: Results for orders placed or performed during the hospital encounter of 11/05/23 XR Chest One View (Exam End: 11/05/2023 3:58 AM) Result Value WORKSTATION ID [id number] Impression Right IJ central venous catheter with [...] who have questions please contact the health career professional that requested your imaging first. 11/05/23 Interpretation [...] and prior TIA presenting in transfer from [facility] with bradycardia, hypotension, and hyperglycemia. #Recurrent symptomatic [...] intubation is permitted Team Pager( Coverage 12/01): #[phone] PCP: KATHLEEN Retana [phone] Attestation: IPI Certification I certify that I am a D-H credentialed attending provider with admitting privileges and that the patient meets or has met medical necessity to require an inpatient IPI level of care meeting a minimumof two midnights or is on the [facility] inpatient only procedure list (status C) due [...] leads Confirmed by fellow MD Johnson Augustin ([id number]) on 11/05/2023 2:07:55 PM Confirmed by MD Funk Danette ([id number]) on 11/06/2023 5:30:09 PM QTCCALC 492 VASCULAR: No results for input(s): VBTEXTRPT in the last 720 hours. IMAGING: Results for orders placed or performed during the hospital encounter of 11/05/23 XR Chest One View (Exam End: 11/05/2023 3:58 AM) Result Value WORKSTATION ID [id number] Impression Right IJ central venous catheter with [...] who have questions please contact the health career professional that requested your imaging first. Electronically signed by: Emeka Wolfe MD, [facility] ([phone]), at 11/05/2023 4:37 AM TTE 11/05/23 Interpretation Summary Normal left ventricular [...] and prior TIA presenting in transfer from [facility] with bradycardia, hypotension, and hyperglycemia. #Recurrent symptomatic [...] intubation is permitted Team Pager( Coverage 12/01): #[phone] PCP: KATHLEEN Retana [phone] Attestation: IPI Certification I certify that I am a D-H credentialed attending provider with admitting privileges and that the patient meets or has met medical necessity to require an inpatient IPI level of care meeting a minimumof two midnights or is on the [facility] inpatient only procedure list (status C) due [...] and prior TIA presenting in transfer from [facility] with bradycardia, hypotension, and hyperglycemia. Plan: #Bradycardia - resolved #Atrial fibrillation # Elevated BNP #Hx of ?tachybrady syndrome HR in the 30s-40s at [facility], meds were held and temporary pacing wire [...] CPR - Inpatient PCP: KATHLEEN Retana at [phone] Angelika Woody Pager # [phone] * Darlyn Flores MD - 11/06/2023 12:16 [...] 11/05/2023 3:58 AM) Result Value WORKSTATION ID [id number] Impression Right IJ central venous catheter with [...] who have questions please contact the health career professional that requested your imaging first. Electronically signed by: Emeka Wolfe MD, [facility] ([phone]), at 11/05/2023 4:37 AM TTE 11/05/23 Interpretation Summary Normal left ventricular [...] and prior TIA presenting in transfer from [facility] with bradycardia, hypotension, and hyperglycemia. It seems [...] fibrillation - HR in the 30s-40s at [facility], now in the 90s-100s - Telemetry - Temp pacing wire removed 11/04 - Holding home diltiazem - Restart metoprolol tartrate 12.5 mg q6h, increase very slowly - Rivaroxaban 20 mg nightly #MLEVA - improving, likely prerenal #Hyperkalemia #Pseudohyponatremia - [...] - Vitals: q4h Team Pager( Coverage 12/01): #[phone] PCP: KATHLEEN Retana [phone] Attestation: IPI Certification I certify that I am a D-H credentialed attending provider with admitting privileges and that the patient meets or has met medical necessity to require an inpatient IPI level of care meeting a minimumof two midnights or is on the [facility] inpatient only procedure list (status C) due to: hyperglycemia DARLYN Flores MD 11/06/2023 * Zoe Cleveland, [employer] - 11/06/2023 8:16 AM EDT Follow Up [...] and snack 3.Lispro 1;30>160 Zoe Cleveland APRN [facility] Endocrinology Diabetes Management Pager [phone] minute visit was spent evaluating diabetes [...] and prior TIA presenting in transfer from [facility] with bradycardia, hypotension, and hyperglycemia. Plan: #Bradycardia - resolved #Atrial fibrillation HR in the 30s-40s at [facility], meds were held and temporary pacing wire [...] CPR - Inpatient PCP: KATHLEEN Retana at [phone] Angelika Woody Pager # [phone] * Ruben Wright MD - 11/05/2023 7:06 [...] DKA but this is not likely the courtesy driver of herpresentation. Her HR and BP [...] Pierre MD - 11/05/2023 4:04 AM EDT [facility] TeleICU Initial Assessment Note I established audio/visual communication with the patient's room, reviewed the eDH, and discussed the patient's case with bedside RN. HPI: The patient just arrived to ICU as a direct admit awaiting for orders, labs and imaging. Briefly, a73 y.o. female with a history of persistent atrial fibrillation ([id number] 4, on Xarelto), SVT ,diabetes type 2, hypertension, hyperlipidemia and obesity who was transferred from [facility] for diarrhea and fatigue. In [...] and prior TIA presenting in transfer from [facility] with bradycardia, hypotension, and hyperglycemia. Hope reports [...] this time, promptingher to call EMS. At [facility], she was found to be bradycardic in [...] for a possible UTI and transferred to [facility] for further management of her bradycardia. Upon [...] consulted while inpatient. She lives alone in [facility]. She has VNA come on Mondays and [...] unspecified whether generalized or localized, lower leg [id number] Osteoarthrosis, unspecified whether generalized or localized, ankle [...] and prior TIA presenting in transfer from [facility] with bradycardia, hypotension, and hyperglycemia. It seems [...] fibrillation - HR in the 30s-40s at [facility], now in the 90s-100s - Telemetry - [...] Ivy Peres MD Internal Medicine PGY-2 Pager: #[phone] 11/05/23 Associated attestation - Joaquim Georges MD [...] tartrate at reduced dose. Joaquim Georges MD [facility] Medicine 11/05/2023 * Abran Reyna APRN - 11/05/2023 3:33 AM EDT Images from the original note were not included. Critical Care Admission Note Hope Yee is a 73 y.o. female with a PMH significant for Obesity (BMI30.7), HTN, Afib (on Xeralto), SVT, bradycardia, DM type 2, CKD, chronic indwelling Barber catheter, TIA, who presented to [facility] with bradycardia, hypotension and hyperglycemia now transferring to the ICU with Bradycardia and presumed DKA vs HHS. HPI:Hope Yee is a 73-year-old female with the above past medical history who presented to the [facility] ED via EMS with a few days [...] g of IV ceftriaxone for suspected UTI. [facility] cardiology was consulted who reached out to [...] Abdomen: Soft, nontender, obese : Chronic indwelling Barber present, draining yellow urine Extremities: 2+ edema [...] 11/05/2023 3:58 AM) Result Value WORKSTATION ID [id number] Impression Right IJ central venous catheter with [...] who have questions please contact the health career professional that requested your imaging first. Electronically signed by: Emeka Wolfe MD, [facility] ([phone]), at 11/05/2023 4:37 AM Assessment: Hope Yee is a 73 y.o. female with a significant history for HTN, Afib (on Xeralto), SVT, bradycardia, DM type 2, CKD, chronic indwelling Barber, TIA, who presented to [facility] with bradycardia, hypotension and hyperglycemia now transferring [...] care time exclusive of procedures and teaching [id number] to [id number]. This includes time spent during direct patient evaluation and reassessment, interpreting diagnostic tests, directing life and/or organ supporting interventions and documentation on the unit. ABRAN REYNA APRN November 05, 2023 Critical Care [place] Team (pager [phone]) Dr. Che is the attending of record [...] her) - follow up with Urologist at [facility] for further SPT care Urology will sign off at this time, please reach out further with additional concerns as needed. Vincenzo Plaza MD 11/12/2023 documented in this encounter Miscellaneous Notes * Care Management - Chanell Acosta - 11/23/2023 12:46 PM EDTSummary: Discharge ride A medicaid discharge ride was scheduled through [facility] ([phone]) by [employer] for 2:00pm at entrance #2. * Care Management Discharge - Jolie Woods RN - 11/23/2023 11:28 AM EDT CARE MANAGEMENT FINAL DISCHARGE NOTE Chart reviewed, care reviewed with primary team and at interdisciplinary rounds. Patient is medically ready for discharge to her daughter , Pelon' home ( [address] [place], [place]). Needs for Transition of Care: home [...] referrals are placed. Patient requests referral to [facility] [address] [place] [address] PHONE: [phone] FAX: [phone]. Expected date of discharge: 11/23/2023. Referral routed to the [employer] for matching with agency/vendor and to provide [...] n/a Patient is insured through: Primary Insurance: [facility] [employer] Payor: [facility] [employer] / Plan: [employer] [employer] / Product Type: *No [...] this letter. Jolie Woods RN CM, BSN, [facility]- Ext [phone] * Care Management - Chanell Acosta - 11/23/2023 11:10 AM EDTSummary: Advance Directive Patient completed Advance Directive with [employer]. Sunil Boyd (son) named as primary agent. [...] Cabrera MSW - 11/17/2023 4:49 PM EDTSummary: [facility]SPORTER [facility] consult TRANSPORTER RADIOLOGY spoke with out patient complex case manager Alexis from [facility]. CM noted that they have not been able to apply for [place] due to patient's current financial situation and her giving money toa scam monthly. Pt has been paying them roughly $800 monthly and is not open to discussing the situation per CM. CM also reports that pt's current housing situation includes hoarding and bed bugs. [facility]ORTER [facility] concerned that home situation will be a barrier to VNA services if d/c to home. [facility]SPORTER [employer]I[facility] to follow up with pt and pt's daughter and son as there has been discussion of going to live with them. [facility]SPORTER [employer]I[facility] will follow with pt, family, and pt's outpatient team for continuation of care. [facility], Social Work Office of Care Management Pager: [phone] * Consult Note - Marlin Cabrera MSW - 11/17/2023 4:22 PM EDTSummary: [facility]SPORTER [facility] consult follow up [facility]SPORTER [facility] spoke to PCP Dr. Stapleton, who shared [...] that Hope is service connected to a complex case manager through the [employer] [facility]. Per PCP: I would like to give you a phone number for her [employer] [facility] complex case manager, who may beaware of if [facility] medicaid is started. His name is Alexis, and number is [phone] My understanding was that she had wanted to go to her son's in [place]. TRANSPORTER RADIOLOGY thanked PCP for the background information and plans to follow up with Alexis (complex case manager) and ideally with the family regarding a goals of care/ superintendent container terminal plan for Hope at d/c. [facility], Social Work Office of Care Management Pager: [phone] * Consult Note - Marlin Cabrera MSW - 11/17/2023 1:25 PM EDTSummary: TRANSPORTER RADIOLOGY consult follow up This [facility]SPORTER RADI[facility]Y was asked by colleague to follow up with pt's PCP per a message left on her answering machine regarding pt and pt's d/c plan/background. TRANSPORTER RADIOLOGY called PCP (Pieter) at the number provided by [facility]TER [facility] ([phone]) -- no answer so TRANSPORTER RADIOLOG[facility] left a message requesting a return call. TRANSPORTER RADIOLOGY will continue to follow up. [facility], Social Work Office of Care Management Pager: [phone] * Plan of Care - Erma Vargas [...] per AUG today. RLE dsg changed today. [facility] PLAN MOVING FORWARD: Q4 FS D/C planning for [facility] INDIVIDUALIZED FALL PREVENTION INTERVENTIONS: Patient-specific fall risk [...] aware through page and epic chat (Sammy Bsoe MD) Call puckett in ann, verbalized understanding [...] hours and more frequently per protocol Call pucktet in reach, verbalized understanding of POC, Will [...] RN. Pt transported via wheelchair with transporter radiology and pt belongings, all double bagged. PLAN [...] and prior TIA presenting in transfer from [facility] with bradycardia, hypotension, and hyperglycemia. Noted PATRICK's [...] HOB higher than 30 degrees) Use a PacketFront chair cushion beneath patient at all times [...] Please contact PATTY CORNELIUS RN on pager [phone] or the wound care team at [phone] or pager [phone] with skin and wound care concerns or questions. Electronically Signed By: PATTY CORNELIUS RN * Care Management - Elodia Dahl MSW - 11/12/2023 11:56 AM EDTSummarjerrod: VICKI Consult Response Social Work Response to Consult Consult: needs resources due to low income and can't afford glasses etc. Lives alone with minimal social supports. Social Work Response: TRANSPORTER RADIOLOGY re-introduced self, role, and reason for consult to pt. TRANSPORTER RADIOLOGY and pt discussed pt's finances: her monthly social security and SNAP benefits income versus her monthly expenses (rent, electricity, cable, phone, and tv). Pt expressed that when all of her expenses are paid, she has an extra $280 per month. TRANSPORTER RADIOLOGY and pt discussed pt's short and superintendent container terminal plan for discharge. In the short term, pt will stay with her daughter Beatriz for a bit in [place], [place]. In the [facility], pt will relocate to [place] to be closer to her son Sunil and will likely move into low income housing or the assisted living facility across the street from the housing, whichever is appropriate. RN RONNIE Jania Stout and pt's son Sunil are working on these two options in [place]. Pt expressed that she is okay with both of these plans and that her end goal is to end up in [place]. Pt expressed that at the moment, she is able to pay her bills and put a little bit of money away herberth time to be able to build her savings. Since she is planning on discharging to Beatriz's house then to [place], she denies the need for [place] resources. Follow Up Needed: None at this time. TRANSPORTER RADIOLOGY encouraged pt to reach out should she decide that she doeswant [place] resources or with any questions, concerns, and/or need for support. GERMAN Rick[facility] Paint Specialist Office of Care Management * Plan of [...] indwelling Barber catheter, TIA, who presented to [facility] with bradycardia, hypotension and hyperglycemia now transferring [...] indwelling Barber catheter, TIA, who presented to [facility] with bradycardia, hypotension and hyperglycemia now transferring [...] Plaza MD Urology PGY-2 Daytime Consult Pager #[phone] * Care Management - Sunshine Stout RN [...] No Patient is insured through: Primary Insurance: [facility] Payor: [facility] [employer] / Plan: [employer] [employer] / Product Type: *No [...] looking into low in come housing at [facility] in [facility]. Reached out to Patric at ext [phone] to speak to him about the chance of getting her an apt. Care Management will continue to follow and assist with discharge planning and coordination of care as indicated. Anticipated Date of Discharge: 11/16/2023 Sunshine MASCORRO, RN CM Phone: [phone] Pager: [phone] * Plan of Care - Kimberly Weaver [...] No Patient is insured through: Primary Insurance: [facility] Payor: [facility] / Plan: [facility] [employer] [employer] / Product Type: *No [...] of Discharge: 11/10/2023 Sunshine MASCORRO RN Phone: [phone] Pager: [phone] * Plan of Care - Kimberly Weaver [...] 11/08/2023 Admit Date: 11/05/2023 Place of Service: [facility] Responsible Attending: Dr. Morro Roberts Reason for [...] 73 y.o. woman, admitted in transfer from [facility] on 516, for evaluation and treatment of DKA, bradycardia and hypotension. She had initially presented at [facility] for evaluation of diarrhea and fatigue. On [...] Pertinent Medications: Current Facility-Administered Medications Ordered in [facility] Medication Dose Route Frequency Provider Last Rate [...] vial 1-6 Units 1-6 Units Subcutaneous Q4H [facility] Zoe Cleveland, MECHANIC RECOVERY 1 Units at 11/07/23 1929 metoproloL tartrate (Lopressor) tablet 25 mg 25 mg Oral Q6H [facility] Darlyn Flores MD 25 mg at 11/08/23 [...] 20 mg at 11/07/23 1739 No current [facility]-ordered outpatient medications on file. Family History: Family [...] and ambulatory monitor data directly from the [facility] portal. There are a number of studies [...] Estee Blackburn MD EP Consult positional pager #[phone](EPMD) EP Device interrogation positional pager # [phone] I met with the patient today and [...] this time. Dr. Alex Blackburn, electrophysiology attending ([id number]) * Plan of Care - Rema Cedeno [...] HOB higher than 30 degrees) Use a PacketFront chair cushion beneath patient at all times [...] Please contact PATTY CORNELIUS RN on pager [phone] or the wound care team at [phone] or pager [phone] skin and wound care concerns or questions. [...] Admitted From: Transfer from another hospital Location: [facility] Reason for Hospitalization: my heart was going [...] surrogate would be surrogate decision maker per [place] surrogate decision making law. (Only good for 180 days) Any patient receiving care in [place] must abide by [place] law. The hierarchy for surrogate decision making [...] The agent with financial power of attorney law clerk or a conservator appointed in accordance with [...] steady place to sleep or slept in [place]ter (including now)?: No In the past 12 [...] has shower bars) Home Address confirmed as: [address] [place] [id number] Social & Family Supports: All names listed below confirmed with patient as current and correct Extended Emergency Contact Information Primary Emergency Contact: Katharina Yee Relation: Child Secondary Emergency Contact: Sunil Boyd Mobile Relation: Child Current Care Provided by: self Provides Primary Care For: no one Caregiver if needed: child(josiah), adult Quality of Family relationships: helpful, involved, [...] her parrot Echo in an apartment in [place] [facility]. Pt has four children: Ciera ([place]) - estranged Katharina ([place]) - point of contact Sunil VILLEDA) - helping pt to find animal care for parrot while pt is hospitalized Beatriz ([place]) don't talk a lot Health/Prescription Coverage: Primary Insurance: [facility] Payor: [facility] MEDIC[facility] / Plan: [facility] / Product Type: *No Product type* / Secondary Insurance: MEDICAID [place] ; Prescription Coverage: Yes Preferred Pharmacy: [id number] - [place], [place] - [address] [facility] [address] [facility] [place] [address] [facility] [address] [facility] [address] [id number] - [place], [place] - [address] [facility] [address] [facility] [id number] Status: Patient is a : No Primary Care Provider confirmed: KATHLEEN Retana [phone] Patient/Caregiver Goals of Treatment: Pt's goal is [...] year old female who was transferred from [facility] and [facility] (diabetic ketoacidosis). Plan: Pt is currently alert and oriented. Team will continue to monitor and discharge planning willfollow. A member of the Care Management team will continue to monitor progress, follow for continuity of care and assist with transition of care planning. GERMAN [employer] Specialist Office of Care Management * Consult Note [...] management and to provide a review of superintendent container terminal diabetes care. Diabetes History: Hope Yee has [...] care for your patient Zoe Cleveland APRN [facility] Endocrinology Diabetes Management Pager [phone] minute visit was spent evaluating diabetes [...] Pt arrived via EMS as transfer from [facility]. A+Ox4. Afib on tele, O2 weaned to [...] 12:18 PM EDT) IF Ab Negative Negative [facility] Comment: Test Performed by: [facility] [place] [address] Dance Entertainer: Mark Cooney M.D. Ph.D.; CLIA# [id number] IF Ab Comment SEE COMMENTS [facility] Comment: Intrinsic Factor Blocking Antibody (IFBA) antibodies are absent in approximately 50% of individuals with pernicious anemia (PA). The absence of elevated IFBA antibodies does not rule out the presence of PA; further studies such as gastrin testing may be indicated. Test Performed by: [facility] - [address] [address] Dance Entertainer: Mark Cooney M.D. Ph.D.; CLIA# [id number] Blood 11/23/2023 12:1 8 PM EDT 11/23/2023 12:48 PM EDT Nicolás Rodriguez MD LAB SEND OUT ORDERAB LES [facility] [place] [address] * POCT Glucose (11/23/2023 11:18 AM EDT) Glucose, POC 196 65 - 199 mg/dL [facility] Comment: Supplemental ranges: <140 mg/dL before meals <180 mg/dL all other times of the day Blood 11/23/2023 11:1 8 AM EDT 11/23/2023 11:18 AM EDT Nicolás Rodriguez MD POINT OF CARE TEST O RDERABLES Performing Organization Address City/[facility]/ZIP Co de Phone Number [facility] [place] [address] * POCT Glucose (11/23/2023 7:18 AM EDT) Glucose, POC 112 65 - 199 mg/dL [facility] Comment: Supplemental ranges: <140 mg/dL before meals <180 mg/dL all other times of the day Blood 11/23/2023 7:18 AM EDT 11/23/2023 7:18 AM EDT Nicolás Rodriguez MD POINT OF CARE TEST O RUBEN [facility] [place] [address] * POCT Glucose (11/22/2023 9:28 PM EDT) Glucose, POC 118 65 - 199 mg/dL [facility] Comment: Supplemental ranges: <140 mg/dL before meals <180 mg/dL all other times of the day Blood 11/22/2023 9:28 PM EDT 11/22/2023 9:28 PM EDT Nicolás Rodriguez MD POINT OF CARE TEST O RUBEN Performing Organization Address [facility]/ZIP Co de Phone Number [facility] [place] [address] * POCT Glucose (11/22/2023 6:30 PM EDT) Glucose, POC 110 65 - 199 mg/dL [facility] Comment: Supplemental ranges: <140 mg/dL before meals <180 mg/dL all other times of the day Blood 11/22/2023 6:30 PM EDT 11/22/2023 6:30 PM EDT Nicolás Rodriguez MD POINT OF CARE TEST O RDERAMICHELE [facility] [place] [address] * POCT Glucose (11/22/2023 11:36 AM EDT) Glucose, POC 133 65 - 199 mg/dL [facility] Comment: Supplemental ranges: <140 mg/dL before meals <180 mg/dL all other times of the day Blood 11/22/2023 11:3 6 AM EDT 11/22/2023 11:36 AM EDT Nicolás Rodriguez MD POINT OF CARE TEST O RUBEN Performing Organization Address City/[facility] Co de Phone Number [facility] [place] [address] * POCT Glucose (11/22/2023 7:48 AM EDT) Glucose, POC 89 65 - 199 mg/dL [facility] Comment: Supplemental ranges: <140 mg/dL before meals <180 mg/dL all other times of the day Blood 11/22/2023 7:48 AM EDT 11/22/2023 7:48 AM EDT Nicolás Rodriguez MD POINT OF CARE TEST O RUBEN Performing Organization Address City/[facility] Co de Phone Number [facility] [place] [address] * (ABNORMAL) Differential, Automated (11/22/2023 4:25 AM EDT) Pathologist [facility] Neutrophil % 61.8 % [facility] Neutrophil Absolute 5.37 1.70 - 6.10 x10(3)/mc L [facility] Lymph % 22.4 % [facility] Lymphocytes Abs 2.0 0.9 - 3.2 x10(3)/mc L [facility] Monocyte % 11.5 % [facility] Monocyte Abs 1.0(H) 0.3 - 0.9 x10(3)/mc L [facility] Eos % 2.6 % [facility] Eosinophils Abs 0.2 0.0 - 0.4 x10(3)/mc L [facility] Basophil % 0.9 % [facility] Baso Absolute 0.1 0.0 - 0.1 x10(3)/mc L [facility] Immature Gran % 0.80 % [facility] Comment: Immature granulocytes(IG's)percentage and absolute count will include metamyelocytes, myelocytes, and promyelocytes. Blood smears from CBCs yielding IG's will be scanned manually for concordance. If this scan disagrees with the automated IG or if promyelocytes are noted, a manual differential will be performed. Immature Gran Absolute 0.07(H) 0.00 - 0.04 x10(3)/[facility] LABORATORY Blood 11/22/2023 4:25 AM EDT 11/22/2023 5:02 AM EDT Narrative Resulting Agency Comment Spec In Lab Francis Roberts MD HEMATOLOGY ORDERABL ES [facility] [place] [address] * (ABNORMAL) Hemogram (11/22/2023 4:25 AM EDT) White Blood Cell 8.7 4.0 - 9.5 x10(3)/[facility] LABORATORY Red Blood Cell 4.16 4.00 - 5.21 x10(6)/[facility] LABORATORY Hemoglobin 9.6(L) 11.7 - 15.5 g/dL [facility] Hematocrit 33.7(L) 35.7 - 45.8 % [facility] Mean Cell Volume 81.0(L) 82.6 - 94.4 fL [facility] Mean Cell Hemoglobin 23.1(L) 27.1 - 32.0 pg [facility] Mean Cell Hemoglobin Concentration 28.5(L) 31.7 - 35.0 g/dL [facility] Platelet 697(H) 145 - 357 x10(3)/ L [facility] RDW Standard Deviation 55.0(H) 37.0 - 46.0 fL [facility] RDW coefficient of variation 18.6(H) 11.5 - 14.1 % [facility] Mean Platelet Volume 10.1 7.6 - 12.9 fL [facility] NRBC% auto 0.0 % [facility] NRBC Absolute 0.000 0.000 - 0.000 x10(3)/mc L [facility] Blood 11/22/2023 4:25 AM EDT 11/22/2023 5:02 AM EDT Narrative Resulting Agency Comment Spec In Lab Francis Roberts MD HEMATOLOGY ORDERABL ES Performing Organization Address [facility]/ZIP Co de Phone Number [facility] [place] [address] * Magnesium (11/22/2023 4:25 AM EDT) Magnesium 0.75 0.69 - 1.07 mmol/L [facility] Blood 11/22/2023 4:25 AM EDT 11/22/2023 5:02 AM EDT Narrative Resulting Agency Comment Spec In Lab Francis Roberts MD CHEMISTRY ORDERABLE S Performing Organization Address [facility] Co de Phone Number [facility] [place] [address] * (ABNORMAL) Basic Metabolic Panel (non-fasting) (11/22/2023 4:25 AM EDT) Glucose 59(L) 65 - 199 mg/dL [facility] Comment:Diabetes: >=200 mg/d L plus symptoms Blood Urea Nitrogen 38(H) 8 - 18 mg/dL [facility] Creatinine 1.02 0.70 - 1.20 mg/dL [facility] Sodium 137 135 - 145 mmol/L [facility] Potassium 4.4 3.5 - 5.0 mmol/L [facility] Comment: Please note: ??Patients with WBC >100,000 may have falsely elevated Potassium levels. ??For accurate Potassium quantification in these patients send serum separator tube (gold top) for subsequent determinations. ??Contact the Clinical Chemistry Laboratory if there are any questions. Chloride 104 98 - 107 mmol/L [facility] Carbon Dioxide 22 22 - 31 mmol/L [facility] Anion Gap 11 5 - 15 mmol/L [facility] Calcium 9.2 8.5 - 10.5 mg/dL [facility] Est Glomerular Filtration Rate 57(L) >=60 mL/min/1. 73 m?? [facility] Comment: This patient's estimated [...] MD CHEMISTRY ORDERABLE S Performing Organization Address City/[facility]/ZIP Co de Phone Number [facility] [place] [address] * POCT Glucose (11/21/2023 11:02 PM EDT) Glucose, POC 78 65 - 199 mg/dL [facility] Comment: Supplemental ranges: <140 mg/dL before meals <180 mg/dL all other times of the day Blood 11/21/2023 11:0 2 PM EDT 11/21/2023 11:02 PM EDT Nicolás Rodriguez MD POINT OF CARE TEST O RDERABLES Performing Organization Address City/[facility]/ZIP Co de Phone Number [facility] [place] [address] * POCT Glucose (11/21/2023 10:32 PM EDT) Glucose, POC 67 65 - 199 mg/dL [facility] Comment: Supplemental ranges: <140 mg/dL before meals <180 mg/dL all other times of the day Blood 11/21/2023 10:3 2 PM EDT 11/21/2023 10:32 PM EDT Nicolás Rodriguez MD POINT OF CARE TEST O RDERICKA [facility] [place] [address] * POCT Glucose (11/21/2023 3:56 PM EDT) Glucose, POC 180 65 - 199 mg/dL [facility] Comment: Supplemental ranges: <140 mg/dL before meals <180 mg/dL all other times of the day Blood 11/21/2023 3:56 PM EDT 11/21/2023 3:56 PM EDT Nicolás Rodriguez MD POINT OF CARE TEST O RUBEN Performing Organization Address [facility] Co de Phone Number [facility] [place] [address] * (ABNORMAL) POCT Glucose (11/21/2023 12:04 PM EDT) Glucose, POC 246(H) 65 - 199 mg/dL [facility] Comment: Supplemental ranges: <140 mg/dL before meals <180 mg/dL all other times of the day Blood 11/21/2023 12:0 4 PM EDT 11/21/2023 12:04 PM EDT Nicolás Rodriguez MD POINT OF CARE TEST O JUAN MANUELERAMICHELE Performing Organization Address City/[facility]/ZIP Co de Phone Number [facility] [place] [address] * POCT Glucose (11/21/2023 8:11 AM EDT) Glucose, POC 136 65 - 199 mg/dL [facility] Comment: Supplemental ranges: <140 mg/dL before meals <180 mg/dL all other times of the day Blood 11/21/2023 8:11 AM EDT 11/21/2023 8:11 AM EDT Idania Matthews MD POINT OF CARE TEST ORDERABLES [facility] [place] [address] * POCT Glucose (11/21/2023 4:15 AM EDT) Glucose, POC 82 65 - 199 mg/dL [facility] Comment: Supplemental ranges: <140 mg/dL before meals <180 mg/dL all other times of the day Blood 11/21/2023 4:15 AM EDT 11/21/2023 4:15 AM EDT Idania Matthews MD POINT OF CARE TEST ORDERABLES Performing Organization Address City/[facility]/ZIP Co de Phone Number [facility] [place] [address] * (ABNORMAL) Differential, Automated (11/21/2023 4:13 AM EDT) Neutrophil % 72.4 % [facility] Neutrophil Absolute 6.17(H) 1.70 - 6.10 x10(3)/mc L [facility] Lymph % 17.5 % [facility] Lymphocytes Abs 1.5 0.9 - 3.2 x10(3)/mc L [facility] Monocyte % 7.5 % [facility] Monocyte Abs 0.6 0.3 - 0.9 x10(3)/mc L [facility] Eos % 1.3 % [facility] Eosinophils Abs 0.1 0.0 - 0.4 x10(3)/mc L [facility] Basophil % 0.6 % [facility] Baso Absolute 0.0 0.0 - 0.1 x10(3)/[facility] LABORATORY Immature Gran % 0.70 % [facility] Comment: Immature granulocytes(IG's)percentage and absolute count will include metamyelocytes, myelocytes, and promyelocytes. Blood smears from CBCs yielding IG's will be scanned manually for concordance. If this scan disagrees with the automated IG or if promyelocytes are noted, a manual differential will be performed. Immature Gran Absolute 0.06(H) 0.00 - 0.04 x10(3)/[facility] LABORATORY Blood 11/21/2023 4:13 AM EDT 11/21/2023 4:41 AM EDT Narrative Resulting Agency Comment Spec In Lab Francis Roberts MD HEMATOLOGY ORDERABL ES Performing Organization Address City/State/[facility] Co de Phone Number [facility] [place] [address] * (ABNORMAL) Hemogram (11/21/2023 4:13 AM EDT) White Blood Cell 8.5 4.0 - 9.5 x10(3)/[facility] LABORATORY Red Blood Cell 4.42 4.00 - 5.21 x10(6)/[facility] LABORATORY Hemoglobin 10.4(L) 11.7 - 15.5 g/dL [facility] Hematocrit 35.9 35.7 - 45.8 % [facility] Mean Cell Volume 81.2(L) 82.6 - 94.4 fL [facility] Mean Cell Hemoglobin 23.5(L) 27.1 - 32.0 pg [facility] Mean Cell Hemoglobin Concentration 29.0(L) 31.7 - 35.0 g/dL [facility] Platelet 674(H) 145 - 357 x10(3)/[facility] LABORATORY RDW Standard Deviation 54.4(H) 37.0 - 46.0 fL [facility] RDW coefficient of variation 18.5(H) 11.5 - 14.1 % [facility] Mean Platelet Volume 9.9 7.6 - 12.9 fL [facility] NRBC% auto 0.0 % [facility] NRBC Absolute 0.000 0.000 - 0.000 x10(3)/mc L [facility] Blood 11/21/2023 4:13 AM EDT 11/21/2023 4:41 AM EDT Narrative Resulting Agency Comment Spec In Lab Francis Roberts MD HEMATOLOGY ORDERABL ES Performing Organization Address [facility]/ZIP Co de Phone Number [facility] [place], [place] [address] * Magnesium (11/21/2023 4:13 AM EDT) Magnesium 0.76 0.69 - 1.07 mmol/L [facility] Blood 11/21/2023 4:13 AM EDT 11/21/2023 4:41 AM EDT Narrative Resulting Agency Comment Spec In Lab Francis Roberts MD CHEMISTRY ORDERABLE S Performing Organization Address [facility]/ZIP Co de Phone Number [facility] [place] [address] * (ABNORMAL) Basic Metabolic Panel (non-fasting) (11/21/2023 4:13 AM EDT) Glucose 76 65 - 199 mg/dL [facility] Comment:Diabetes: >=200 mg/d L plus symptoms Blood Urea Nitrogen 31(H) 8 - 18 mg/dL [facility] Creatinine 0.92 0.70 - 1.20 mg/dL [facility] Sodium 137 135 - 145 mmol/L [facility] Potassium 4.5 3.5 - 5.0 mmol/L [facility] Comment: Please note: ??Patients with WBC >100,000 may have falsely elevated Potassium levels. ??For accurate Potassium quantification in these patients send serum separator tube (gold top) for subsequent determinations. ??Contact the Clinical Chemistry Laboratory if there are any questions. Chloride 105 98 - 107 mmol/L [facility] Carbon Dioxide 22 22 - 31 mmol/L [facility] Anion Gap 10 5 - 15 mmol/L [facility] Calcium 9.5 8.5 - 10.5 mg/dL [facility] Est Glomerular Filtration Rate 65 >=60 mL/min/1. 73 m?? [facility] Comment: This patient's estimated [...] Lab Francis Roberts MD CHEMISTRY ORDERABLE S [facility] [place] [address] * POCT Glucose (11/20/2023 7:37 PM EDT) Glucose, POC 168 65 - 199 mg/dL [facility] Comment: Supplemental ranges: <140 mg/dL before meals <180 mg/dL all other times of the day Blood 11/20/2023 7:37 PM EDT 11/20/2023 7:37 PM EDT Idania Matthews MD POINT OF CARE TEST ORDERABLES Performing Organization Address City/[facility]/ZIP Co de Phone Number [facility] [place] [address] * POCT Glucose (11/20/2023 4:14 PM EDT) Glucose, POC 189 65 - 199 mg/dL [facility] Comment: Supplemental ranges: <140 mg/dL before meals <180 mg/dL all other times of the day Blood 11/20/2023 4:14 PM EDT 11/20/2023 4:14 PM EDT Idania Matthews MD POINT OF CARE TEST ORDERABLES Performing Organization Address City/[facility] Co de Phone Number [facility] [place] [address] * POCT Glucose (11/20/2023 11:13 AM EDT) Glucose, POC 137 65 - 199 mg/dL [facility] Comment: Supplemental ranges: <140 mg/dL before meals <180 mg/dL all other times of the day Blood 11/20/2023 11:1 3 AM EDT 11/20/2023 11:13 AM EDT Idania Matthews MD POINT OF CARE TEST ORDERABLES Performing Organization Address City/[facility] Co de Phone Number [facility] [place] [address] * POCT Glucose (11/20/2023 7:34 AM EDT) Glucose, POC 77 65 - 199 mg/dL [facility] Comment: Supplemental ranges: <140 mg/dL before meals <180 mg/dL all other times of the day Blood 11/20/2023 7:34 AM EDT 11/20/2023 7:34 AM EDT Idania Matthews MD POINT OF CARE TEST ORDERABLES [facility] [place] [address] * (ABNORMAL) Differential, Automated (11/20/2023 5:58 AM EDT) Neutrophil % 58.2 % [facility] Neutrophil Absolute 5.22 1.70 - 6.10 x10(3)/mc L [facility] Lymph % 28.1 % [facility] Lymphocytes Abs 2.5 0.9 - 3.2 x10(3)/mc L [facility] Monocyte % 9.3 % [facility] Monocyte Abs 0.8 0.3 - 0.9 x10(3)/mc L [facility] Eos % 3.0 % [facility] Eosinophils Abs 0.3 0.0 - 0.4 x10(3)/ L [facility] Basophil % 0.7 % [facility] Baso Absolute 0.1 0.0 - 0.1 x10(3)/mc L [facility] Immature Gran % 0.70 % [facility] Comment: Immature granulocytes(IG's)percentage and absolute count will include metamyelocytes, myelocytes, and promyelocytes. Blood smears from CBCs yielding IG's will be scanned manually for concordance. If this scan disagrees with the automated IG or if promyelocytes are noted, a manual differential will be performed. Immature Gran Absolute 0.06(H) 0.00 - 0.04 x10(3)/mc L [facility] Blood 11/20/2023 5:58 AM EDT 11/20/2023 6:31 AM EDT Narrative Resulting Agency Comment Spec In Lab Francis Roberts MD HEMATOLOGY ORDERABL ES Performing Organization Address City/[facility]/ZIP Co de Phone Number [facility] [place] [address] * (ABNORMAL) Hemogram (11/20/2023 5:58 AM EDT) White Blood Cell 9.0 4.0 - 9.5 x10(3)/[facility] LABORATORY Red Blood Cell 4.20 4.00 - 5.21 x10(6)/ L [facility] Hemoglobin 10.0(L) 11.7 - 15.5 g/dL [facility] Hematocrit 33.9(L) 35.7 - 45.8 % [facility] Mean Cell Volume 80.7(L) 82.6 - 94.4 fL [facility] Mean Cell Hemoglobin 23.8(L) 27.1 - 32.0 pg [facility] Mean Cell Hemoglobin Concentration 29.5(L) 31.7 - 35.0 g/dL [facility] Platelet 607(H) 145 - 357 x10(3)/[facility] LABORATORY RDW Standard Deviation 53.7(H) 37.0 - 46.0 [facility] LABORATORY RDW coefficient of variation 18.5(H) 11.5 - 14.1 % [facility] Mean Platelet Volume 9.7 7.6 - 12.9 fL [facility] NRBC% auto 0.0 % [facility] NRBC Absolute 0.000 0.000 - 0.000 x10(3)/[facility] LABORATORY Blood 11/20/2023 5:58 AM EDT 11/20/2023 6:31 AM EDT Narrative Resulting Agency Comment Spec In Lab Francis Roberts MD HEMATOLOGY ORDERABL ES [facility] [place] [address] * Magnesium (11/20/2023 5:58 AM EDT) Magnesium 0.73 0.69 - 1.07 mmol/L [facility] Blood 11/20/2023 5:58 AM EDT 11/20/2023 6:31 AM EDT Narrative Resulting Agency Comment Spec In Lab Francis Roberts MD CHEMISTRY ORDERABLE S [facility] [place] [address] * (ABNORMAL) Basic Metabolic Panel (non-fasting) (11/20/2023 5:58 AM EDT) Glucose 72 65 - 199 mg/dL [facility] Comment:Diabetes: >=200 mg/d L plus symptoms Blood Urea Nitrogen 26(H) 8 - 18 mg/dL [facility] Creatinine 0.95 0.70 - 1.20 mg/dL [facility] Sodium 140 135 - 145 mmol/L [facility] Potassium 4.2 3.5 - 5.0 mmol/L [facility] Comment: Please note: ??Patients with WBC >100,000 may have falsely elevated Potassium levels. ??For accurate Potassium quantification in these patients send serum separator tube (gold top) for subsequent determinations. ??Contact the Clinical Chemistry Laboratory if there are any questions. Chloride 105 98 - 107 mmol/L [facility] Carbon Dioxide 23 22 - 31 mmol/L [facility] Anion Gap 12 5 - 15 mmol/L [facility] Calcium 9.6 8.5 - 10.5 mg/dL [facility] Est Glomerular Filtration Rate 62 >=60 mL/min/1. 73 m?? [facility] Comment: This patient's estimated [...] Lab Francis Roberts MD CHEMISTRY ORDERABLE S [facility] [place] [address] * (ABNORMAL) POCT Glucose (11/19/2023 9:22 PM EDT) Glucose, POC 207(H) 65 - 199 mg/dL [facility] Comment: Supplemental ranges: <140 mg/dL before meals <180 mg/dL all other times of the day Blood 11/19/2023 9:22 PM EDT 11/19/2023 9:22 PM EDT Idania Matthews MD POINT OF CARE TEST ORDERABLES Performing Organization Address [facility]/ZIP Co de Phone Number [facility] [place] [address] * POCT Glucose (11/19/2023 3:31 PM EDT) Glucose, POC 135 65 - 199 mg/dL [facility] Comment: Supplemental ranges: <140 mg/dL before meals <180 mg/dL all other times of the day Blood 11/19/2023 3:31 PM EDT 11/19/2023 3:31 PM EDT Idania Matthews MD POINT OF CARE TEST ORDERABLES Performing Organization Address City/[facility]/ZIP Co de Phone Number [facility] [place] [address] * (ABNORMAL) POCT Glucose (11/19/2023 11:40 AM EDT) Glucose, POC 212(H) 65 - 199 mg/dL [facility] Comment: Supplemental ranges: <140 mg/dL before meals <180 mg/dL all other times of the day Blood 11/19/2023 11:4 0 AM EDT 11/19/2023 11:40 AM EDT Idania Matthews MD POINT OF CARE TEST ORDERABLES [facility] [place] [address] * POCT Glucose (11/19/2023 7:29 AM EDT) Glucose, POC 79 65 - 199 mg/dL [facility] Comment: Supplemental ranges: <140 mg/dL before meals <180 mg/dL all other times of the day Blood 11/19/2023 7:29 AM EDT 11/19/2023 7:29 AM EDT Idania Matthews MD POINT OF CARE TEST ORDERABLES Performing Organization Address City/[facility] Co de Phone Number [facility] [place] [address] * (ABNORMAL) Differential, Automated (11/19/2023 1:48 AM EDT) Neutrophil % 57.0 % [facility] Neutrophil Absolute 5.60 1.70 - 6.10 x10(3)/mc L [facility] Lymph % 29.9 % [facility] Lymphocytes Abs 2.9 0.9 - 3.2 x10(3)/mc L [facility] Monocyte % 9.0 % [facility] Monocyte Abs 0.9 0.3 - 0.9 x10(3)/mc L [facility] Eos % 2.7 % [facility] Eosinophils Abs 0.3 0.0 - 0.4 x10(3)/mc L [facility] Basophil % 0.7 % [facility] Baso Absolute 0.1 0.0 - 0.1 x10(3)/mc L [facility] Immature Gran % 0.70 % [facility] Comment: Immature granulocytes(IG's)percentage and absolute count will include metamyelocytes, myelocytes, and promyelocytes. Blood smears from CBCs yielding IG's will be scanned manually for concordance. If this scan disagrees with the automated IG or if promyelocytes are noted, a manual differential will be performed. Immature Gran Absolute 0.07(H) 0.00 - 0.04 x10(3)/ L [facility] Blood 11/19/2023 1:48 AM EDT 11/19/2023 2:11 AM EDT Narrative Resulting Agency Comment Spec In Lab Francis Roberts MD HEMATOLOGY ORDERABL ES [facility] [place] [address] * (ABNORMAL) Hemogram (11/19/2023 1:48 AM EDT) White Blood Cell 9.8(H) 4.0 - 9.5 x10(3)/[facility] LABORATORY Red Blood Cell 4.05 4.00 - 5.21 x10(6)/ L [facility] Hemoglobin 9.6(L) 11.7 - 15.5 g/dL [facility] Hematocrit 32.7(L) 35.7 - 45.8 % [facility] Mean Cell Volume 80.7(L) 82.6 - 94.4 fL [facility] Mean Cell Hemoglobin 23.7(L) 27.1 - 32.0 pg [facility] Mean Cell Hemoglobin Concentration 29.4(L) 31.7 - 35.0 g/dL [facility] Platelet 534(H) 145 - 357 x10(3)/ L [facility] RDW Standard Deviation 54.8(H) 37.0 - 46.0 fL [facility] RDW coefficient of variation 18.6(H) 11.5 - 14.1 % [facility] Mean Platelet Volume 9.8 7.6 - 12.9 fL [facility] NRBC% auto 0.0 % [facility] NRBC Absolute 0.000 0.000 - 0.000 x10(3)/mc L [facility] Blood 11/19/2023 1:48 AM EDT 11/19/2023 2:11 AM EDT Narrative Resulting Agency Comment Spec In Lab Francis Roberts MD HEMATOLOGY ORDERABL ES Performing Organization Address [facility] Co de Phone Number [facility] [place] [address] * Magnesium (11/19/2023 1:48 AM EDT) Pathologist [facility] Magnesium 0.71 0.69 - 1.07 mmol/L [facility] Blood 11/19/2023 1:48 AM EDT 11/19/2023 2:11 AM EDT Narrative Resulting Agency Comment Spec In Lab Francis Roberts MD CHEMISTRY ORDERABLE S Performing Organization Address [facility] de Phone Number [facility] [place] [address] * (ABNORMAL) Basic Metabolic Panel (non-fasting) (11/19/2023 1:48 AM EDT) Glucose 59(L) 65 - 199 mg/dL [facility] Comment:Diabetes: >=200 mg/d L plus symptoms Blood Urea Nitrogen 32(H) 8 - 18 mg/dL [facility] Creatinine 0.91 0.70 - 1.20 mg/dL [facility] Sodium 138 135 - 145 mmol/L [facility] Potassium 4.4 3.5 - 5.0 mmol/L [facility] Comment: Please note: ??Patients with WBC >100,000 may have falsely elevated Potassium levels. ??For accurate Potassium quantification in these patients send serum separator tube (gold top) for subsequent determinations. ??Contact the Clinical Chemistry Laboratory if there are any questions. Chloride 104 98 - 107 mmol/L [facility] Carbon Dioxide 24 22 - 31 mmol/L [facility] Anion Gap 10 5 - 15 mmol/L [facility] Calcium 9.4 8.5 - 10.5 mg/dL [facility] Est Glomerular Filtration Rate 66 >=60 mL/min/1. 73 m?? [facility] Comment: This patient's estimated [...] Lab Francis Roberts MD CHEMISTRY ORDERABLE S [facility] [place] [address] * POCT Glucose (11/18/2023 7:34 PM EDT) Glucose, POC 95 65 - 199 mg/dL [facility] Comment: Supplemental ranges: <140 mg/dL before meals <180 mg/dL all other times of the day Blood 11/18/2023 7:34 PM EDT 11/18/2023 7:34 PM EDT Idania Matthews MD POINT OF CARE TEST ORDERABLES [facility] [place] [address] * POCT Glucose (11/18/2023 5:16 PM EDT) Glucose, POC 152 65 - 199 mg/dL [facility] Comment: Supplemental ranges: <140 mg/dL before meals <180 mg/dL all other times of the day Blood 11/18/2023 5:16 PM EDT 11/18/2023 5:16 PM EDT Idania Matthews MD POINT OF CARE TEST ORDERABLES [facility] [place] [address] * (ABNORMAL) POCT Glucose (11/18/2023 3:26 PM EDT) Glucose, POC 268(H) 65 - 199 mg/dL [facility] Comment: Supplemental ranges: <140 mg/dL before meals <180 mg/dL all other times of the day Blood 11/18/2023 3:26 PM EDT 11/18/2023 3:26 PM EDT Idania Matthews MD POINT OF CARE TEST ORDERABLES Performing Organization Address City/[facility]/ZIP Co de Phone Number [facility] [place] [address] * (ABNORMAL) POCT Glucose (11/18/2023 12:50 PM EDT) Glucose, POC 240(H) 65 - 199 mg/dL [facility] Comment: Supplemental ranges: <140 mg/dL before meals <180 mg/dL all other times of the day Blood 11/18/2023 12:5 0 PM EDT 11/18/2023 12:50 PM EDT Idania Matthews MD POINT OF CARE TEST ORDERABLES Performing Organization Address City/[facility]/ZIP Co de Phone Number [facility] [place] [address] * (ABNORMAL) POCT Glucose (11/18/2023 11:03 AM EDT) Glucose, POC 258(H) 65 - 199 mg/dL [facility] Comment: Supplemental ranges: <140 mg/dL before meals <180 mg/dL all other times of the day Blood 11/18/2023 11:0 3 AM EDT 11/18/2023 11:03 AM EDT Idania Matthews MD POINT OF CARE TEST ORDERABLES Performing Organization Address [facility] Co de Phone Number [facility] [place] [address] * POCT Glucose (11/18/2023 7:32 AM EDT) Glucose, POC 109 65 - 199 mg/dL [facility] Comment: Supplemental ranges: <140 mg/dL before meals <180 mg/dL all other times of the day Blood 11/18/2023 7:32 AM EDT 11/18/2023 7:32 AM EDT Idania Matthews MD POINT OF CARE TEST ORDERABLES Performing Organization Address [facility] de Phone Number [facility] [place] [address] * (ABNORMAL) Differential, Automated (11/18/2023 5:21 AM EDT) Neutrophil % 53.4 % [facility] Neutrophil Absolute 5.29 1.70 - 6.10 x10(3)/mc L [facility] Lymph % 31.7 % [facility] Lymphocytes Abs 3.1 0.9 - 3.2 x10(3)/mc L [facility] Monocyte % 11.0 % [facility] Monocyte Abs 1.1(H) 0.3 - 0.9 x10(3)/mc L [facility] Eos % 2.3 % [facility] Eosinophils Abs 0.2 0.0 - 0.4 x10(3)/[facility]OR[facility]ORY Basophil % 0.8 % [facility] Baso Absolute 0.1 0.0 - 0.1 x10(3)/[facility] LABORATORY Immature Gran % 0.80 % [facility] Comment: Immature granulocytes(IG's)percentage and absolute count will include metamyelocytes, myelocytes, and promyelocytes. Blood smears from CBCs yielding IG's will be scanned manually for concordance. If this scan disagrees with the automated IG or if promyelocytes are noted, a manual differential will be performed. Immature Gran Absolute 0.08(H) 0.00 - 0.04 x10(3)/[facility] LABORATORY Blood 11/18/2023 5:21 AM EDT 11/18/2023 5:33 AM EDT Narrative Resulting Agency Comment Spec In Lab Francis Roberts MD HEMATOLOGY ORDERABL ES [facility] [place] [address] * (ABNORMAL) Hemogram (11/18/2023 5:21 AM EDT) White Blood Cell 9.9(H) 4.0 - 9.5 x10(3)/[facility] LABORATORY Red Blood Cell 4.16 4.00 - 5.21 x10(6)/[facility]ATORY Hemoglobin 9.9(L) 11.7 - 15.5 g/dL [facility] Hematocrit 33.4(L) 35.7 - 45.8 % [facility] Mean Cell Volume 80.3(L) 82.6 - 94.4 fL [facility] Mean Cell Hemoglobin 23.8(L) 27.1 - 32.0 pg [facility] Mean Cell Hemoglobin Concentration 29.6(L) 31.7 - 35.0 g/dL [facility] Platelet 472(H) 145 - 357 x10(3)/mc L [facility] RDW Standard Deviation 54.4(H) 37.0 - 46.0 fL [facility] RDW coefficient of variation 18.9(H) 11.5 - 14.1 % [facility] Mean Platelet Volume 10.2 7.6 - 12.9 [facility] NRBC% auto 0.0 % [facility] NRBC Absolute 0.000 0.000 - 0.000 x10(3)/mc L [facility] Blood 11/18/2023 5:21 AM EDT 11/18/2023 5:33 AM EDT Narrative Resulting Agency Comment Spec In Lab Francis Roberts MD HEMATOLOGY ORDERABL ES Performing Organization Address [facility] de Phone Number [facility] [place] [address] * Magnesium (11/18/2023 5:21 AM EDT) Magnesium 0.79 0.69 - 1.07 mmol/L [facility] Blood 11/18/2023 5:21 AM EDT 11/18/2023 5:33 AM EDT Narrative Resulting Agency Comment Spec In Lab Francis Roberts MD CHEMISTRY ORDERABLE S Performing Organization Address [facility] Co de Phone Number [facility] [place] [address] * (ABNORMAL) Basic Metabolic Panel (non-fasting) (11/18/2023 5:21 AM EDT) Glucose 104 65 - 199 mg/dL [facility] Comment:Diabetes: >=200 mg/d L plus symptoms Blood Urea Nitrogen 35(H) 8 - 18 mg/dL [facility] Creatinine 1.32(H) 0.70 - 1.20 mg/dL [facility] Sodium 135 135 - 145 mmol/L [facility] Potassium 4.9 3.5 - 5.0 mmol/L [facility] Comment: Please note: ??Patients with WBC >100,000 may have falsely elevated Potassium levels. ??For accurate Potassium quantification in these patients send serum separator tube (gold top) for subsequent determinations. ??Contact the Clinical Chemistry Laboratory if there are any questions. Chloride 101 98 - 107 mmol/L [facility] Carbon Dioxide 24 22 - 31 mmol/L [facility] Anion Gap 10 5 - 15 mmol/L [facility] Calcium 10.2 8.5 - 10.5 mg/dL [facility] Est Glomerular Filtration Rate 42(L) >=60 mL/min/1. 73 m?? [facility] Comment: This patient's estimated [...] Lab Francis Roberts MD CHEMISTRY ORDERABLE S [facility] [place] [address] * POCT Glucose (11/17/2023 11:36 PM EDT) Glucose, POC 109 65 - 199 mg/dL [facility] Comment: Supplemental ranges: <140 mg/dL before meals <180 mg/dL all other times of the day Blood 11/17/2023 11:3 6 PM EDT 11/17/2023 11:36 PM EDT Idania Matthews MD POINT OF CARE TEST ORDERABLES Performing Organization Address City/[facility] Co de Phone Number [facility] [place] [address] * (ABNORMAL) POCT Glucose (11/17/2023 4:35 PM EDT) Glucose, POC 212(H) 65 - 199 mg/dL [facility] Comment: Supplemental ranges: <140 mg/dL before meals <180 mg/dL all other times of the day Blood 11/17/2023 4:35 PM EDT 11/17/2023 4:35 PM EDT Idania Matthews MD POINT OF CARE TEST ORDERABLES Performing Organization Address [facility] Co de Phone Number [facility] [place] [address] * (ABNORMAL) POCT Glucose (11/17/2023 1:49 PM EDT) Glucose, POC 310(H) 65 - 199 mg/dL [facility] Comment: Supplemental ranges: <140 mg/dL before meals <180 mg/dL all other times of the day Blood 11/17/2023 1:49 PM EDT 11/17/2023 1:49 PM EDT Idania Matthews MD POINT OF CARE TEST ORDERABLES Performing Organization Address City/[facility] Co de Phone Number [facility] [place] [address] * (ABNORMAL) POCT Glucose (11/17/2023 11:44 AM EDT) Glucose, POC 259(H) 65 - 199 mg/dL [facility] Comment: Supplemental ranges: <140 mg/dL before meals <180 mg/dL all other times of the day Blood 11/17/2023 11:4 4 AM EDT 11/17/2023 11:44 AM EDT Idania Matthews MD POINT OF CARE TEST ORDERABLES [facility] [place] [address] * POCT Glucose (11/17/2023 8:08 AM EDT) Glucose, POC 117 65 - 199 mg/dL [facility] Comment: Supplemental ranges: <140 mg/dL before meals <180 mg/dL all other times of the day Blood 11/17/2023 8:08 AM EDT 11/17/2023 8:08 AM EDT Idania Matthews MD POINT OF CARE TEST ORDERABLES Performing Organization Address City/[facility]/ZIP Co de Phone Number [facility] [place] [address] * (ABNORMAL) Differential, Automated (11/17/2023 5:13 AM EDT) [facility] Neutrophil % 57.9 % [facility] Neutrophil Absolute 4.96 1.70 - 6.10 x10(3)/mc L [facility] Lymph % 27.8 % [facility] Lymphocytes Abs 2.4 0.9 - 3.2 x10(3)/mc L [facility] Monocyte % 10.0 % [facility] Monocyte Abs 0.9 0.3 - 0.9 x10(3)/mc L [facility] Eos % 2.6 % [facility] Eosinophils Abs 0.2 0.0 - 0.4 x10(3)/mc L [facility] Basophil % 0.8 % [facility] Baso Absolute 0.1 0.0 - 0.1 x10(3)/mc L [facility] Immature Gran % 0.90 % [facility] Comment: Immature granulocytes(IG's)percentage and absolute count will include metamyelocytes, myelocytes, and promyelocytes. Blood smears from CBCs yielding IG's will be scanned manually for concordance. If this scan disagrees with the automated IG or if promyelocytes are noted, a manual differential will be performed. Immature Gran Absolute 0.08(H) 0.00 - 0.04 x10(3)/[facility] LABORATORY Blood 11/17/2023 5:13 AM EDT 11/17/2023 5:44 AM EDT Narrative Resulting Agency Comment Spec In Lab Francis Roberts MD HEMATOLOGY ORDERABL ES [facility] [place] [address] * (ABNORMAL) Hemogram (11/17/2023 5:13 AM EDT) White Blood Cell 8.6 4.0 - 9.5 x10(3)/[facility] LABORATORY Red Blood Cell 4.46 4.00 - 5.21 x10(6)/[facility] LABORATORY Hemoglobin 10.6(L) 11.7 - 15.5 g/dL [facility] Hematocrit 36.3 35.7 - 45.8 % [facility] Mean Cell Volume 81.4(L) 82.6 - 94.4 fL [facility] Mean Cell Hemoglobin 23.8(L) 27.1 - 32.0 pg [facility] Mean Cell Hemoglobin Concentration 29.2(L) 31.7 - 35.0 g/dL [facility] Platelet 524(H) 145 - 357 x10(3)/[facility] LABORATORY RDW Standard Deviation 55.8(H) 37.0 - 46.0 fL [facility] RDW coefficient of variation 19.0(H) 11.5 - 14.1 % [facility] Mean Platelet Volume 10.3 7.6 - 12.9 fL [facility] NRBC% auto 0.0 % [facility] NRBC Absolute 0.000 0.000 - 0.000 x10(3)/mc L [facility] Blood 11/17/2023 5:13 AM EDT 11/17/2023 5:44 AM EDT Narrative Resulting Agency Comment Spec In Lab Francis Roberts MD HEMATOLOGY ORDERABL ES Performing Organization Address City/[facility]/ZIP Co de Phone Number [facility] [place] [address] * Magnesium (11/17/2023 5:13 AM EDT) Magnesium 0.73 0.69 - 1.07 mmol/L [facility] Blood 11/17/2023 5:13 AM EDT 11/17/2023 5:44 AM EDT Narrative Resulting Agency Comment Spec In Lab Francis Roberts MD CHEMISTRY ORDERABLE S Performing Organization Address City/[facility] Co de Phone Number [facility] [place] [address] * (ABNORMAL) Basic Metabolic Panel (non-fasting) (11/17/2023 5:13 AM EDT) Glucose 111 65 - 199 mg/dL [facility] Comment:Diabetes: >=200 mg/d L plus symptoms Blood Urea Nitrogen 25(H) 8 - 18 mg/dL [facility] Creatinine 0.96 0.70 - 1.20 mg/dL [facility] Sodium 139 135 - 145 mmol/L [facility] Potassium 4.7 3.5 - 5.0 mmol/L [facility] Comment: Please note: ??Patients with WBC >100,000 may have falsely elevated Potassium levels. ??For accurate Potassium quantification in these patients send serum separator tube (gold top) for subsequent determinations. ??Contact the Clinical Chemistry Laboratory if there are any questions. Chloride 103 98 - 107 mmol/L [facility] Carbon Dioxide 23 22 - 31 mmol/L [facility] Anion Gap 13 5 - 15 mmol/L [facility] Calcium 9.8 8.5 - 10.5 mg/dL [facility] Est Glomerular Filtration Rate 62 >=60 mL/min/1. 73 m?? [facility] Comment: This patient's estimated [...] Lab Francis Roberts MD CHEMISTRY ORDERABLE S [facility] [place] [address] * POCT Glucose (11/17/2023 3:50 AM EDT) Glucose, POC 69 65 - 199 mg/dL [facility] Comment: Supplemental ranges: <140 mg/dL before meals <180 mg/dL all other times of the day Blood 11/17/2023 3:50 AM EDT 11/17/2023 3:50 AM EDT Idania Matthews MD POINT OF CARE TEST ORDERABLES [facility] [place] [address] * POCT Glucose (11/16/2023 11:45 PM EDT) Glucose, POC 90 65 - 199 mg/dL [facility] Comment: Supplemental ranges: <140 mg/dL before meals <180 mg/dL all other times of the day Blood 11/16/2023 11:4 5 PM EDT 11/16/2023 11:45 PM EDT Idania Matthews MD POINT OF CARE TEST ORDERABLES Performing Organization Address City/[facility]/ZIP Co de Phone Number [facility] [place] [address] * POCT Glucose (11/16/2023 7:29 PM EDT) Glucose, POC 128 65 - 199 mg/dL [facility] Comment: Supplemental ranges: <140 mg/dL before meals <180 mg/dL all other times of the day Blood 11/16/2023 7:29 PM EDT 11/16/2023 7:29 PM EDT Idania Matthews MD POINT OF CARE TEST ORDERABLES Performing Organization Address City/[facility]/ZIP Co de Phone Number [facility] [place] [address] * POCT Glucose (11/16/2023 3:05 PM EDT) Glucose, POC 122 65 - 199 mg/dL [facility] Comment: Supplemental ranges: <140 mg/dL before meals <180 mg/dL all other times of the day Blood 11/16/2023 3:05 PM EDT 11/16/2023 3:05 PM EDT Idania Matthews MD POINT OF CARE TEST ORDERABLES [facility] [place] [address] * (ABNORMAL) POCT Glucose (11/16/2023 11:31 AM EDT) Glucose, POC 227(H) 65 - 199 mg/dL [facility] Comment: Supplemental ranges: <140 mg/dL before meals <180 mg/dL all other times of the day Blood 11/16/2023 11:3 1 AM EDT 11/16/2023 11:31 AM EDT Idania Matthews MD POINT OF CARE TEST ORDERABLES Performing Organization Address City/[facility]/ZIP Co de Phone Number [facility] [place] [address] * POCT Glucose (11/16/2023 8:00 AM EDT) Glucose, POC 86 65 - 199 mg/dL [facility] Comment: Supplemental ranges: <140 mg/dL before meals <180 mg/dL all other times of the day Blood 11/16/2023 8:00 AM EDT 11/16/2023 8:00 AM EDT Idania Matthews MD POINT OF CARE TEST ORDERABLES Performing Organization Address [facility] Co de Phone Number [facility] [place] [address] * POCT Glucose (11/16/2023 3:36 AM EDT) Glucose, POC 105 65 - 199 mg/dL [facility] Comment: Supplemental ranges: <140 mg/dL before meals <180 mg/dL all other times of the day Blood 11/16/2023 3:36 AM EDT 11/16/2023 3:36 AM EDT Idania Matthews MD POINT OF CARE TEST ORDERABLES Performing Organization Address City/[facility] Co de Phone Number [facility] [place] [address] * (ABNORMAL) Differential, Automated (11/16/2023 3:22 AM EDT) Neutrophil % 59.5 % [facility] Neutrophil Absolute 4.81 1.70 - 6.10 x10(3)/[facility] LABORATORY Lymph % 27.5 % [facility] Lymphocytes Abs 2.2 0.9 - 3.2 x10(3)/[facility] LABORATORY Monocyte % 10.4 % [facility] Monocyte Abs 0.8 0.3 - 0.9 x10(3)/[facility] LABORATORY Eos % 1.1 % [facility] Eosinophils Abs 0.1 0.0 - 0.4 x10(3)/[facility] LABORATORY Basophil % 0.6 % [facility] Baso Absolute 0.0 0.0 - 0.1 x10(3)/[facility] LABORATORY Immature Gran % 0.90 % [facility] Comment: Immature granulocytes(IG's)percentage and absolute count will include metamyelocytes, myelocytes, and promyelocytes. Blood smears from CBCs yielding IG's will be scanned manually for concordance. If this scan disagrees with the automated IG or if promyelocytes are noted, a manual differential will be performed. Immature Gran Absolute 0.07(H) 0.00 - 0.04 x10(3)/[facility] LABORATORY Blood 11/16/2023 3:22 AM EDT 11/16/2023 3:51 AM EDT Narrative Resulting Agency Comment Spec In Lab Francis Roberts MD HEMATOLOGY ORDERABL ES [facility] [place] [address] * (ABNORMAL) Hemogram (11/16/2023 3:22 AM EDT) White Blood Cell 8.1 4.0 - 9.5 x10(3)/[facility] LABORATORY Red Blood Cell 4.29 4.00 - 5.21 x10(6)/[facility] LABORATORY Hemoglobin 9.9(L) 11.7 - 15.5 g/dL [facility] Hematocrit 33.9(L) 35.7 - 45.8 % [facility] Mean Cell Volume 79.0(L) 82.6 - 94.4 fL [facility] Mean Cell Hemoglobin 23.1(L) 27.1 - 32.0 pg [facility] Mean Cell Hemoglobin Concentration 29.2(L) 31.7 - 35.0 g/dL [facility] Platelet 555(H) 145 - 357 x10(3)/mc L [facility] RDW Standard Deviation 53.9(H) 37.0 - 46.0 fL [facility] RDW coefficient of variation 18.9(H) 11.5 - 14.1 % [facility] Mean Platelet Volume 10.0 7.6 - 12.9 fL [facility] NRBC% auto 0.0 % [facility] NRBC Absolute 0.000 0.000 - 0.000 x10(3)/mc L [facility] Blood 11/16/2023 3:22 AM EDT 11/16/2023 3:51 AM EDT Narrative Resulting Agency Comment Spec In Lab Francis Roberts MD HEMATOLOGY ORDERABL ES Performing Organization Address [facility] Co de Phone Number [facility] [place] [address] * Magnesium (11/16/2023 3:22 AM EDT) Magnesium 0.72 0.69 - 1.07 mmol/L [facility] Blood 11/16/2023 3:22 AM EDT 11/16/2023 3:50 AM EDT Narrative Resulting Agency Comment Spec In Lab Francis Roberts MD CHEMISTRY ORDERABLE S Performing Organization Address [facility]/ZIP Co de Phone Number [facility] [place] [address] * (ABNORMAL) Basic Metabolic Panel (non-fasting) (11/16/2023 3:22 AM EDT) Glucose 125 65 - 199 mg/dL [facility] Comment:Diabetes: >=200 mg/d L plus symptoms Blood Urea Nitrogen 19(H) 8 - 18 mg/dL [facility] Creatinine 0.71 0.70 - 1.20 mg/dL [facility] Sodium 140 135 - 145 mmol/L [facility] Potassium 4.3 3.5 - 5.0 mmol/L [facility] Comment: Please note: ??Patients with WBC >100,000 may have falsely elevated Potassium levels. ??For accurate Potassium quantification in these patients send serum separator tube (gold top) for subsequent determinations. ??Contact the Clinical Chemistry Laboratory if there are any questions. Chloride 105 98 - 107 mmol/L [facility] Carbon Dioxide 25 22 - 31 mmol/L [facility] Anion Gap 10 5 - 15 mmol/L [facility] Calcium 9.9 8.5 - 10.5 mg/dL [facility] Est Glomerular Filtration Rate 89 >=60 mL/min/1. 73 m?? [facility] Comment: This patient's estimated [...] Lab Francis Roberts MD CHEMISTRY ORDERABLE S [facility] [place] [address] * (ABNORMAL) POCT Glucose (11/15/2023 11:27 PM EDT) Glucose, POC 264(H) 65 - 199 mg/dL [facility] Comment: Supplemental ranges: <140 mg/dL before meals <180 mg/dL all other times of the day Blood 11/15/2023 11:2 7 PM EDT 11/15/2023 11:27 PM EDT Idania Matthews MD POINT OF CARE TEST ORDERABLES [facility] [place] [address] * POCT Glucose (11/15/2023 8:03 PM EDT) Glucose, POC 174 65 - 199 mg/dL [facility] Comment: Supplemental ranges: <140 mg/dL before meals <180 mg/dL all other times of the day Blood 11/15/2023 8:03 PM EDT 11/15/2023 8:03 PM EDT Idania Matthews MD POINT OF CARE TEST ORDERABLES [facility] [place] [address] * POCT Glucose (11/15/2023 6:38 PM EDT) Glucose, POC 70 65 - 199 mg/dL [facility] Comment: Supplemental ranges: <140 mg/dL before meals <180 mg/dL all other times of the day Blood 11/15/2023 6:38 PM EDT 11/15/2023 6:38 PM EDT Idania Matthews MD POINT OF CARE TEST ORDERABLES [facility] [place] [address] * (ABNORMAL) POCT Glucose (11/15/2023 6:18 PM EDT) Glucose, POC 52(Critica l) 65 - 199 mg/dL [facility] Comment: Supplemental ranges: <140 mg/dL before meals <180 mg/dL all other times of the day Blood 11/15/2023 6:18 PM EDT 11/15/2023 6:18 PM EDT Idania Matthews MD POINT OF CARE TEST ORDERABLES [facility] [place] [address] * (ABNORMAL) POCT Glucose (11/15/2023 6:02 PM EDT) Glucose, POC 55(L) 65 - 199 mg/dL [facility] Comment: Supplemental ranges: <140 mg/dL before meals <180 mg/dL all other times of the day Blood 11/15/2023 6:02 PM EDT 11/15/2023 6:02 PM EDT Idania Matthews MD POINT OF CARE TEST ORDERABLES [facility] [place] [address] * POCT Glucose (11/15/2023 3:42 PM EDT) Glucose, POC 159 65 - 199 mg/dL [facility] Comment: Supplemental ranges: <140 mg/dL before meals <180 mg/dL all other times of the day Blood 11/15/2023 3:42 PM EDT 11/15/2023 3:42 PM EDT Idania Matthews MD POINT OF CARE TEST ORDERABLES [facility] [place] [address] * EKG 12 Lead (11/15/2023 2:56 PM EDT) Ventricular rate 100 BPM MUSE SYSTEM QRS Duration 74 ms MUSE SYSTEM Q-T Interval 352 ms MUSE SYSTEM QTC Calculated (Bezet) 454 ms MUSE SYSTEM Calculated R Twilight 34 degrees MUSE SYSTEM Calculated T Twilight 8 degrees MUSE SYSTEM INTERPRETATION Atrial fibrillation [...] Glucose, POC 193 65 - 199 mg/dL [facility] Comment: Supplemental ranges: <140 mg/dL before meals <180 mg/dL all other times of the day Blood 11/15/2023 2:38 PM EDT 11/15/2023 2:38 PM EDT Idania Matthews MD POINT OF CARE TEST ORDERABLES [facility] [place] [address] * (ABNORMAL) POCT Glucose (11/15/2023 12:28 PM EDT) Glucose, POC 249(H) 65 - 199 mg/dL [facility] Comment: Supplemental ranges: <140 mg/dL before meals <180 mg/dL all other times of the day Blood 11/15/2023 12:2 8 PM EDT 11/15/2023 12:28 PM EDT Idania Matthews MD POINT OF CARE TEST ORDERABLES Performing Organization Address [facility] Co de Phone Number [facility] [place] [address] * (ABNORMAL) POCT Glucose (11/15/2023 10:32 AM EDT) Glucose, POC 275(H) 65 - 199 mg/dL [facility] Comment: Supplemental ranges: <140 mg/dL before meals <180 mg/dL all other times of the day Blood 11/15/2023 10:3 2 AM EDT 11/15/2023 10:32 AM EDT Idania Matthews MD POINT OF CARE TEST ORDERABLES Performing Organization Address [facility] Co de Phone Number [facility] [place] [address] * (ABNORMAL) POCT Glucose (11/15/2023 8:24 AM EDT) Glucose, POC 254(H) 65 - 199 mg/dL [facility] Comment: Supplemental ranges: <140 mg/dL before meals <180 mg/dL all other times of the day Blood 11/15/2023 8:24 AM EDT 11/15/2023 8:24 AM EDT Idania Matthews MD POINT OF CARE TEST ORDERABLES Performing Organization Address [facility] [facility] Co de Phone Number [facility] [place] [address] * (ABNORMAL) Differential, Automated (11/15/2023 3:57 AM EDT) Neutrophil % 75.7 % [facility] Neutrophil Absolute 7.24(H) 1.70 - 6.10 x10(3)/mc L [facility] Lymph % 13.4 % [facility] Lymphocytes Abs 1.3 0.9 - 3.2 x10(3)/mc L [facility] Monocyte % 8.9 % [facility] Monocyte Abs 0.8 0.3 - 0.9 x10(3)/[facility] LABORATORY Eos % 0.6 % [facility] Eosinophils Abs 0.1 0.0 - 0.4 x10(3)/[facility]ORATORY Basophil % 0.5 % [facility] Baso Absolute 0.0 0.0 - 0.1 x10(3)/[facility] LABORATORY Immature Gran % 0.90 % [facility] Comment: Immature granulocytes(IG's)percentage and absolute count will include metamyelocytes, myelocytes, and promyelocytes. Blood smears from CBCs yielding IG's will be scanned manually for concordance. If this scan disagrees with the automated IG or if promyelocytes are noted, a manual differential will be performed. Immature Gran Absolute 0.09(H) 0.00 - 0.04 x10(3)/[facility] LABORATORY Blood 11/15/2023 3:57 AM EDT 11/15/2023 4:07 AM EDT Narrative Resulting Agency Comment Spec In Lab Francis Roberts MD HEMATOLOGY ORDERABL ES [facility] [place] [address] * (ABNORMAL) Hemogram (11/15/2023 3:57 AM EDT) White Blood Cell 9.6(H) 4.0 - 9.5 x10(3)/[facility] LABORATORY Red Blood Cell 4.76 4.00 - 5.21 x10(6)/[facility]ATORY Hemoglobin 11.1(L) 11.7 - 15.5 g/dL [facility] Hematocrit 38.9 35.7 - 45.8 % [facility] Mean Cell Volume 81.7(L) 82.6 - 94.4 fL [facility] Mean Cell Hemoglobin 23.3(L) 27.1 - 32.0 pg [facility] Mean Cell Hemoglobin Concentration 28.5(L) 31.7 - 35.0 g/dL [facility] Platelet 555(H) 145 - 357 x10(3)/mc L [facility] RDW Standard Deviation 55.8(H) 37.0 - 46.0 fL [facility] RDW coefficient of variation 18.8(H) 11.5 - 14.1 % [facility] Mean Platelet Volume 9.9 7.6 - 12.9 fL [facility] NRBC% auto 0.0 % [facility] NRBC Absolute 0.000 0.000 - 0.000 x10(3)/mc L [facility] Blood 11/15/2023 3:57 AM EDT 11/15/2023 4:07 AM EDT Narrative Resulting Agency Comment Spec In Lab Francis Roberts MD HEMATOLOGY ORDERABL ES Performing Organization Address City/[facility]/ZIP Co de Phone Number [facility] [place] [address] * Magnesium (11/15/2023 3:57 AM EDT) Pathologist [facility] Magnesium 0.84 0.69 - 1.07 mmol/L [facility] Blood 11/15/2023 3:57 AM EDT 11/15/2023 4:07 AM EDT Narrative Resulting Agency Comment Spec In Lab Francis Roberts MD CHEMISTRY ORDERABLE S Performing Organization Address City/[facility]/ZIP Co de Phone Number [facility] [place] [address] * (ABNORMAL) Basic Metabolic Panel (non-fasting) (11/15/2023 3:57 AM EDT) Glucose 135 65 - 199 mg/dL [facility] Comment:Diabetes: >=200 mg/d L plus symptoms Blood Urea Nitrogen 21(H) 8 - 18 mg/dL [facility] Creatinine 0.79 0.70 - 1.20 mg/dL [facility] Sodium 137 135 - 145 mmol/L [facility] Potassium 5.0 3.5 - 5.0 mmol/L [facility] Comment: Please note: ??Patients with WBC >100,000 may have falsely elevated Potassium levels. ??For accurate Potassium quantification in these patients send serum separator tube (gold top) for subsequent determinations. ??Contact the Clinical Chemistry Laboratory if there are any questions. Chloride 104 98 - 107 mmol/L [facility] Carbon Dioxide 24 22 - 31 mmol/L [facility] Anion Gap 9 5 - 15 mmol/L [facility] Calcium 9.8 8.5 - 10.5 mg/dL [facility] Est Glomerular Filtration Rate 78 >=60 mL/min/1. 73 m?? [facility] Comment: This patient's estimated [...] Lab Francis Roberts MD CHEMISTRY ORDERABLE S [facility] [place] [address] * POCT Glucose (11/15/2023 3:42 AM EDT) Glucose, POC 128 65 - 199 mg/dL [facility] Comment: Supplemental ranges: <140 mg/dL before meals <180 mg/dL all other times of the day Blood 11/15/2023 3:42 AM EDT 11/15/2023 3:42 AM EDT Idania Matthews MD POINT OF CARE TEST ORDERABLES Performing Organization Address City/[facility]/ZIP Co de Phone Number [facility] [place] [address] * POCT Glucose (11/15/2023 1:01 AM EDT) Glucose, POC 81 65 - 199 mg/dL [facility] Comment: Supplemental ranges: <140 mg/dL before meals <180 mg/dL all other times of the day Blood 11/15/2023 1:01 AM EDT 11/15/2023 1:01 AM EDT Idania Matthews MD POINT OF CARE TEST ORDERABLES Performing Organization Address City/[facility]/ZIP Co de Phone Number [facility] [place] [address] * (ABNORMAL) POCT Glucose (11/15/2023 12:37 AM EDT) Glucose, POC 58(L) 65 - 199 mg/dL [facility] Comment: Supplemental ranges: <140 mg/dL before meals <180 mg/dL all other times of the day Blood 11/15/2023 12:3 7 AM EDT 11/15/2023 12:37 AM EDT Idania Matthews MD POINT OF CARE TEST ORDERABLES Performing Organization Address City/[facility]/ZIP Co de Phone Number [facility] [place] [address] * POCT Glucose (11/14/2023 8:36 PM EDT) Glucose, POC 149 65 - 199 mg/dL [facility] Comment: Supplemental ranges: <140 mg/dL before meals <180 mg/dL all other times of the day Blood 11/14/2023 8:36 PM EDT 11/14/2023 8:36 PM EDT Idania Matthews MD POINT OF CARE TEST ORDERABLES [facility] [place] [address] * POCT Glucose (11/14/2023 4:33 PM EDT) Glucose, POC 175 65 - 199 mg/dL [facility] Comment: Supplemental ranges: <140 mg/dL before meals <180 mg/dL all other times of the day Blood 11/14/2023 4:33 PM EDT 11/14/2023 4:33 PM EDT Idania Matthews MD POINT OF CARE TEST ORDERABLES [facility] [place] [address] * POCT Glucose (11/14/2023 12:09 PM EDT) Glucose, POC 162 65 - 199 mg/dL [facility] Comment: Supplemental ranges: <140 mg/dL before meals <180 mg/dL all other times of the day Blood 11/14/2023 12:0 9 PM EDT 11/14/2023 12:09 PM EDT Idania Matthews MD POINT OF CARE TEST ORDERABLES [facility] [place] [address] * POCT Glucose (11/14/2023 9:16 AM EDT) Glucose, POC 109 65 - 199 mg/dL [facility] Comment: Supplemental ranges: <140 mg/dL before meals <180 mg/dL all other times of the day Blood 11/14/2023 9:16 AM EDT 11/14/2023 9:16 AM EDT Idaina Matthews MD POINT OF CARE TEST ORDERABLES [facility] [place] [address] * POCT Glucose (11/14/2023 7:38 AM EDT) Glucose, POC 93 65 - 199 mg/dL [facility] Comment: Supplemental ranges: <140 mg/dL before meals <180 mg/dL all other times of the day Blood 11/14/2023 7:38 AM EDT 11/14/2023 7:38 AM EDT Idania Matthews MD POINT OF CARE TEST ORDERABLES Performing Organization Address City/[facility]/ZIP Co de Phone Number [facility] [place] [phone] * (ABNORMAL) Differential, Automated (11/14/2023 4:33 AM EDT) Pathologist [facility] Neutrophil % 57.8 % [facility] Neutrophil Absolute 5.08 1.70 - 6.10 x10(3)/mc L [facility] Lymph % 25.2 % [facility] Lymphocytes Abs 2.2 0.9 - 3.2 x10(3)/mc L [facility] Monocyte % 12.4 % [facility] Monocyte Abs 1.1(H) 0.3 - 0.9 x10(3)/mc L [facility] Eos % 2.7 % [facility] Eosinophils Abs 0.2 0.0 - 0.4 x10(3)/mc L [facility] Basophil % 0.8 % [facility] Baso Absolute 0.1 0.0 - 0.1 x10(3)/mc L [facility] Immature Gran % 1.10 % [facility] Comment: Immature granulocytes(IG's)percentage and absolute count will include metamyelocytes, myelocytes, and promyelocytes. Blood smears from CBCs yielding IG's will be scanned manually for concordance. If this scan disagrees with the automated IG or if promyelocytes are noted, a manual differential will be performed. Immature Gran Absolute 0.10(H) 0.00 - 0.04 x10(3)/ L [facility] Blood 11/14/2023 4:33 AM EDT 11/14/2023 5:31 AM EDT Narrative Resulting Agency Comment Spec In Lab Francis Roberts MD HEMATOLOGY ORDERABL ES [facility] [place] [address] * (ABNORMAL) Hemogram (11/14/2023 4:33 AM EDT) White Blood Cell 8.8 4.0 - 9.5 x10(3)/[facility] LABORATORY Red Blood Cell 4.33 4.00 - 5.21 x10(6)/ L [facility] Hemoglobin 10.0(L) 11.7 - 15.5 g/dL [facility] Hematocrit 34.3(L) 35.7 - 45.8 % [facility] Mean Cell Volume 79.2(L) 82.6 - 94.4 fL [facility] Mean Cell Hemoglobin 23.1(L) 27.1 - 32.0 pg [facility] Mean Cell Hemoglobin Concentration 29.2(L) 31.7 - 35.0 g/dL [facility] Platelet 530(H) 145 - 357 x10(3)/ L [facility] RDW Standard Deviation 54.4(H) 37.0 - 46.0 fL [facility] RDW coefficient of variation 18.8(H) 11.5 - 14.1 % [facility] Mean Platelet Volume 10.2 7.6 - 12.9 fL [facility] NRBC% auto 0.0 % [facility] NRBC Absolute 0.000 0.000 - 0.000 x10(3)/mc L [facility] Blood 11/14/2023 4:33 AM EDT 11/14/2023 5:31 AM EDT Narrative Resulting Agency Comment Spec In Lab Francis Roberts MD HEMATOLOGY ORDERABL ES Performing Organization Address [facility] Co de Phone Number [facility] [place] [address] * (ABNORMAL) Magnesium (11/14/2023 4:33 AM EDT) Magnesium 0.66(L) 0.69 - 1.07 mmol/L [facility] Blood 11/14/2023 4:33 AM EDT 11/14/2023 5:31 AM EDT Narrative Resulting Agency Comment Spec In Lab Francis Roberts MD CHEMISTRY ORDERABLE S Performing Organization Address [facility] de Phone Number [facility] [place] [address] * (ABNORMAL) Basic Metabolic Panel (non-fasting) (11/14/2023 4:33 AM EDT) Glucose 72 65 - 199 mg/dL [facility] Comment:Diabetes: >=200 mg/d L plus symptoms Blood Urea Nitrogen 26(H) 8 - 18 mg/dL [facility] Creatinine 0.79 0.70 - 1.20 mg/dL [facility] Sodium 142 135 - 145 mmol/L [facility] Potassium 4.4 3.5 - 5.0 mmol/L [facility] Comment: Please note: ??Patients with WBC >100,000 may have falsely elevated Potassium levels. ??For accurate Potassium quantification in these patients send serum separator tube (gold top) for subsequent determinations. ??Contact the Clinical Chemistry Laboratory if there are any questions. Chloride 107 98 - 107 mmol/L [facility] Carbon Dioxide 24 22 - 31 mmol/L [facility] Anion Gap 11 5 - 15 mmol/L [facility] Calcium 9.5 8.5 - 10.5 mg/dL [facility] Est Glomerular Filtration Rate 78 >=60 mL/min/1. 73 m?? [facility] Comment: This patient's estimated [...] Lab Francis Roberts MD CHEMISTRY ORDERABLE S [facility] [place] [address] * POCT Glucose (11/14/2023 4:21 AM EDT) Glucose, POC 81 65 - 199 mg/dL [facility] Comment: Supplemental ranges: <140 mg/dL before meals <180 mg/dL all other times of the day Blood 11/14/2023 4:21 AM EDT 11/14/2023 4:21 AM EDT Francis Roberts MD POINT OF CARE TEST ORDERABLES [facility] [place] [address] * POCT Glucose (11/14/2023 12:10 AM EDT) Glucose, POC 126 65 - 199 mg/dL [facility] Comment: Supplemental ranges: <140 mg/dL before meals <180 mg/dL all other times of the day Blood 11/14/2023 12:1 0 AM EDT 11/14/2023 12:10 AM EDT Francis Roberts MD POINT OF CARE TEST ORDERABLES Performing Organization Address City/[facility]/ZIP Co de Phone Number [facility] [place] [address] * (ABNORMAL) POCT Glucose (11/13/2023 9:45 PM EDT) Glucose, POC 200(H) 65 - 199 mg/dL [facility] Comment: Supplemental ranges: <140 mg/dL before meals <180 mg/dL all other times of the day Blood 11/13/2023 9:45 PM EDT 11/13/2023 9:45 PM EDT Francis Roberst MD POINT OF CARE TEST ORDERABLES Performing Organization Address [facility] Co de Phone Number [facility] [place] [address] * (ABNORMAL) POCT Glucose (11/13/2023 7:20 PM EDT) Glucose, POC 245(H) 65 - 199 mg/dL [facility] Comment: Supplemental ranges: <140 mg/dL before meals <180 mg/dL all other times of the day Blood 11/13/2023 7:20 PM EDT 11/13/2023 7:20 PM EDT Francis Roberts MD POINT OF CARE TEST ORDERABLES Performing Organization Address City/[facility]/ZIP Co de Phone Number [facility] [place] [address] * (ABNORMAL) POCT Glucose (11/13/2023 4:17 PM EDT) Glucose, POC 263(H) 65 - 199 mg/dL [facility] Comment: Supplemental ranges: <140 mg/dL before meals <180 mg/dL all other times of the day Blood 11/13/2023 4:17 PM EDT 11/13/2023 4:17 PM EDT Francis Roberts MD POINT OF CARE TEST ORDERABLES [facility] [place] [address] * POCT Glucose (11/13/2023 1:53 PM EDT) Glucose, POC 171 65 - 199 mg/dL [facility] Comment: Supplemental ranges: <140 mg/dL before meals <180 mg/dL all other times of the day Blood 11/13/2023 1:53 PM EDT 11/13/2023 1:53 PM EDT Francis Roberts MD POINT OF CARE TEST ORDERABLES [facility] [place] [address] * POCT Glucose (11/13/2023 11:41 AM EDT) Glucose, POC 199 65 - 199 mg/dL [facility] Comment: Supplemental ranges: <140 mg/dL before meals <180 mg/dL all other times of the day Blood 11/13/2023 11:4 1 AM EDT 11/13/2023 11:41 AM EDT Francis Roberts MD POINT OF CARE TEST ORDERABLES [facility] [place] [address] * POCT Glucose (11/13/2023 9:34 AM EDT) Glucose, POC 115 65 - 199 mg/dL [facility] Comment: Supplemental ranges: <140 mg/dL before meals <180 mg/dL all other times of the day Blood 11/13/2023 9:34 AM EDT 11/13/2023 9:34 AM EDT Francis Roberts MD POINT OF CARE TEST ORDERABLES Performing Organization Address City/[facility]/ZIP Co de Phone Number [facility] [place] [place] [address] * POCT Glucose (11/13/2023 7:56 AM EDT) Glucose, POC 101 65 - 199 mg/dL [facility] Comment: Supplemental ranges: <140 mg/dL before meals <180 mg/dL all other times of the day Blood 11/13/2023 7:56 AM EDT 11/13/2023 7:56 AM EDT Joaquim Georges MD POINT OF CARE TEST O RDERABLES Performing Organization Address [facility] Co de Phone Number [facility] [place] [address] * POCT Glucose (11/13/2023 3:39 AM EDT) Glucose, POC 99 65 - 199 mg/dL [facility] Comment: Supplemental ranges: <140 mg/dL before meals <180 mg/dL all other times of the day Blood 11/13/2023 3:39 AM EDT 11/13/2023 3:39 AM EDT Joaquim Georges MD POINT OF CARE TEST O RDERABLES Performing Organization Address City/[facility]/ZIP Co de Phone Number [facility] [place] [address] * POCT Glucose (11/13/2023 12:23 AM EDT) Glucose, POC 94 65 - 199 mg/dL [facility] Comment: Supplemental ranges: <140 mg/dL before meals <180 mg/dL all other times of the day Blood 11/13/2023 12:2 3 AM EDT 11/13/2023 12:23 AM EDT Francis Roberts MD POINT OF CARE TEST ORDERABLES [facility] [place] [address] * (ABNORMAL) Differential, Automated (11/13/2023 12:08 AM EDT) Neutrophil % 59.6 % [facility] Neutrophil Absolute 5.76 1.70 - 6.10 x10(3)/ L [facility] Lymph % 24.9 % [facility] Lymphocytes Abs 2.4 0.9 - 3.2 x10(3)/ L [facility] Monocyte % 11.4 % [facility] Monocyte Abs 1.1(H) 0.3 - 0.9 x10(3)/ L [facility] Eos % 2.5 % [facility] Eosinophils Abs 0.2 0.0 - 0.4 x10(3)/[facility] LABORATORY Basophil % 0.8 % [facility] Baso Absolute 0.1 0.0 - 0.1 x10(3)/ L [facility] Immature Gran % 0.80 % [facility] Comment: Immature granulocytes(IG's)percentage and absolute count will include metamyelocytes, myelocytes, and promyelocytes. Blood smears from CBCs yielding IG's will be scanned manually for concordance. If this scan disagrees with the automated IG or if promyelocytes are noted, a manual differential will be performed. Immature Gran Absolute 0.08(H) 0.00 - 0.04 x10(3)/mc L [facility] Blood 11/13/2023 12:0 8 AM EDT 11/13/2023 12:30 AM EDT Narrative Resulting Agency Comment Spec In Lab Emily Mckenna MD HEMATOLOGY ORDERABLE S [facility] [place] [address] * (ABNORMAL) Hemogram (11/13/2023 12:08 AM EDT) White Blood Cell 9.7(H) 4.0 - 9.5 x10(3)/mc L [facility] Red Blood Cell 3.98(L) 4.00 - 5.21 x10(6)/mc L [facility] Hemoglobin 9.3(L) 11.7 - 15.5 g/dL [facility] Hematocrit 31.6(L) 35.7 - 45.8 % [facility] Mean Cell Volume 79.4(L) 82.6 - 94.4 fL [facility] Mean Cell Hemoglobin 23.4(L) 27.1 - 32.0 pg [facility] Mean Cell Hemoglobin Concentration 29.4(L) 31.7 - 35.0 g/dL [facility] Platelet 448(H) 145 - 357 x10(3)/mc L [facility] RDW Standard Deviation 54.3(H) 37.0 - 46.0 fL [facility] RDW coefficient of variation 18.8(H) 11.5 - 14.1 % [facility] Mean Platelet Volume 10.1 7.6 - 12.9 fL [facility] NRBC% auto 0.0 % [facility] NRBC Absolute 0.000 0.000 - 0.000 x10(3)/mc L [facility] Blood 11/13/2023 12:0 8 AM EDT 11/13/2023 12:30 AM EDT Narrative Resulting Agency Comment Spec In Lab Emily Mckenna MD HEMATOLOGY ORDERABLE S [facility] [place] [address] * Magnesium (11/13/2023 12:08 AM EDT) Magnesium 0.70 0.69 - 1.07 mmol/L [facility] Blood 11/13/2023 12:0 8 AM EDT 11/13/2023 12:31 AM EDT Narrative Resulting Agency Comment Spec In Lab Francis Roberts MD CHEMISTRY ORDERABLE S Performing Organization Address City/[facility]/ZIP Co de Phone Number [facility] [place] [address] * (ABNORMAL) Basic Metabolic Panel (non-fasting) (11/13/2023 12:08 AM EDT) Glucose 97 65 - 199 mg/dL [facility] Comment:Diabetes: >=200 mg/d L plus symptoms Blood Urea Nitrogen 34(H) 8 - 18 mg/dL [facility] Creatinine 1.17 0.70 - 1.20 mg/dL [facility] Sodium 136 135 - 145 mmol/L [facility] Potassium 5.0 3.5 - 5.0 mmol/L [facility] Comment: Please note: ??Patients with WBC >100,000 may have falsely elevated Potassium levels. ??For accurate Potassium quantification in these patients send serum separator tube (gold top) for subsequent determinations. ??Contact the Clinical Chemistry Laboratory if there are any questions. Chloride 103 98 - 107 mmol/L [facility] Carbon Dioxide 23 22 - 31 mmol/L [facility] Anion Gap 10 5 - 15 mmol/L [facility] Calcium 9.4 8.5 - 10.5 mg/dL [facility] Est Glomerular Filtration Rate 49(L) >=60 mL/min/1. 73 m?? [facility] Comment: This patient's estimated [...] MD CHEMISTRY ORDERABLE S Performing Organization Address [facility] Co de Phone Number [facility] [place] [address] * POCT Glucose (11/12/2023 8:21 PM EDT) Glucose, POC 88 65 - 199 mg/dL [facility] Comment: Supplemental ranges: <140 mg/dL before meals <180 mg/dL all other times of the day Blood 11/12/2023 8:21 PM EDT 11/12/2023 8:21 PM EDT Francis Roberts MD POINT OF CARE TEST ORDERABLES Performing Organization Address [facility] Co de Phone Number [facility] [place] [address] * (ABNORMAL) POCT Glucose (11/12/2023 5:58 PM EDT) Glucose, POC 215(H) 65 - 199 mg/dL [facility] Comment: Supplemental ranges: <140 mg/dL before meals <180 mg/dL all other times of the day Blood 11/12/2023 5:58 PM EDT 11/12/2023 5:58 PM EDT Francis Roberts MD POINT OF CARE TEST ORDERABLES Performing Organization Address City/[facility]/ZIP Co de Phone Number [facility] [place] [address] * (ABNORMAL) POCT Glucose (11/12/2023 3:48 PM EDT) Glucose, POC 338(H) 65 - 199 mg/dL [facility] Comment: Supplemental ranges: <140 mg/dL before meals <180 mg/dL all other times of the day Blood 11/12/2023 3:48 PM EDT 11/12/2023 3:48 PM EDT Francis Roberts MD POINT OF CARE TEST ORDERABLES Performing Organization Address City/[facility]/ZIP Co de Phone Number [facility] [place] [address] * (ABNORMAL) POCT Glucose (11/12/2023 1:41 PM EDT) Glucose, POC 284(H) 65 - 199 mg/dL [facility] Comment: Supplemental ranges: <140 mg/dL before meals <180 mg/dL all other times of the day Blood 11/12/2023 1:41 PM EDT 11/12/2023 1:41 PM EDT Francis Roberts MD POINT OF CARE TEST ORDERABLES Performing Organization Address City/[facility]/ZIP Co de Phone Number [facility] [place] [address] * (ABNORMAL) POCT Glucose (11/12/2023 12:26 PM EDT) Glucose, POC 245(H) 65 - 199 mg/dL [facility] Comment: Supplemental ranges: <140 mg/dL before meals <180 mg/dL all other times of the day Blood 11/12/2023 12:2 6 PM EDT 11/12/2023 12:26 PM EDT Francis Roberts MD POINT OF CARE TEST ORDERABLES [facility] [place] [address] * POCT Glucose (11/12/2023 8:17 AM EDT) Glucose, POC 147 65 - 199 mg/dL [facility] Comment: Supplemental ranges: <140 mg/dL before meals <180 mg/dL all other times of the day Blood 11/12/2023 8:17 AM EDT 11/12/2023 8:17 AM EDT Francis Roberts MD POINT OF CARE TEST ORDERABLES [facility] [place] [address] * POCT Glucose (11/12/2023 4:07 AM EDT) Glucose, POC 108 65 - 199 mg/dL [facility] Comment: Supplemental ranges: <140 mg/dL before meals <180 mg/dL all other times of the day Blood 11/12/2023 4:07 AM EDT 11/12/2023 4:07 AM EDT Francis Roberts MD POINT OF CARE TEST ORDERABLES [facility] [place] [address] * (ABNORMAL) Differential, Automated (11/12/2023 12:54 AM EDT) Neutrophil % 63.2 % [facility] Neutrophil Absolute 6.81(H) 1.70 - 6.10 x10(3)/mc L [facility] Lymph % 21.6 % [facility] Lymphocytes Abs 2.3 0.9 - 3.2 x10(3)/mc L [facility] Monocyte % 12.1 % [facility] Monocyte Abs 1.3(H) 0.3 - 0.9 x10(3)/mc L [facility] Eos % 1.9 % [facility] Eosinophils Abs 0.2 0.0 - 0.4 x10(3)/[facility] Basophil % 0.6 % [facility] Baso Absolute 0.1 0.0 - 0.1 x10(3)/ L [facility] Immature Gran % 0.60 % [facility] Comment: Immature granulocytes(IG's)percentage and absolute count will include metamyelocytes, myelocytes, and promyelocytes. Blood smears from CBCs yielding IG's will be scanned manually for concordance. If this scan disagrees with the automated IG or if promyelocytes are noted, a manual differential will be performed. Immature Gran Absolute 0.07(H) 0.00 - 0.04 x10(3)/[facility] Blood 11/12/2023 12:5 4 AM EDT 11/12/2023 1:01 AM EDT Narrative Resulting Agency Comment Spec In Lab Emily Mckenna MD HEMATOLOGY ORDERABLE S [facility] [place] [address] * (ABNORMAL) Hemogram (11/12/2023 12:54 AM EDT) White Blood Cell 10.8(H) 4.0 - 9.5 x10(3)/ L [facility] Red Blood Cell 4.00 4.00 - 5.21 x10(6)/ L [facility] Hemoglobin 9.3(L) 11.7 - 15.5 g/dL [facility] Hematocrit 31.2(L) 35.7 - 45.8 % [facility] Mean Cell Volume 78.0(L) 82.6 - 94.4 fL [facility] Mean Cell Hemoglobin 23.3(L) 27.1 - 32.0 pg [facility] Mean Cell Hemoglobin Concentration 29.8(L) 31.7 - 35.0 g/dL [facility] Platelet 441(H) 145 - 357 x10(3)/mc L [facility] RDW Standard Deviation 52.8(H) 37.0 - 46.0 fL [facility] RDW coefficient of variation 18.8(H) 11.5 - 14.1 % [facility] Mean Platelet Volume 10.5 7.6 - 12.9 fL [facility] NRBC% auto 0.0 % [facility] NRBC Absolute 0.000 0.000 - 0.000 x10(3)/mc L [facility] Blood 11/12/2023 12:5 4 AM EDT 11/12/2023 1:01 AM EDT Narrative Resulting Agency Comment Spec In Lab Emily Mckenna MD HEMATOLOGY ORDERABLE S Performing Organization Address City/[facility]/ZIP Co de Phone Number [facility] [place] [place] [address] * Magnesium (11/12/2023 12:54 AM EDT) Magnesium 0.72 0.69 - 1.07 mmol/L [facility] Blood 11/12/2023 12:5 4 AM EDT 11/12/2023 1:01 AM EDT Narrative Resulting Agency Comment Spec In Lab Francis Roberts MD CHEMISTRY ORDERABLE S [facility] [place] [address] * (ABNORMAL) Basic Metabolic Panel (non-fasting) (11/12/2023 12:54 AM EDT) Glucose 94 65 - 199 mg/dL [facility] Comment:Diabetes: >=200 mg/d L plus symptoms Blood Urea Nitrogen 27(H) 8 - 18 mg/dL [facility] Creatinine 0.85 0.70 - 1.20 mg/dL [facility] Sodium 136 135 - 145 mmol/L [facility] Potassium 5.0 3.5 - 5.0 mmol/L [facility] Comment: Please note: ??Patients with WBC >100,000 may have falsely elevated Potassium levels. ??For accurate Potassium quantification in these patients send serum separator tube (gold top) for subsequent determinations. ??Contact the Clinical Chemistry Laboratory if there are any questions. Chloride 104 98 - 107 mmol/L [facility] Carbon Dioxide 24 22 - 31 mmol/L [facility] Anion Gap 8 5 - 15 mmol/L [facility] Calcium 9.8 8.5 - 10.5 mg/dL [facility] Est Glomerular Filtration Rate 71 >=60 mL/min/1. 73 m?? [facility] Comment: This patient's estimated [...] Lab Francis Roberts MD CHEMISTRY ORDERABLE S [facility] [place] [address] * POCT Glucose (11/12/2023 12:52 AM EDT) Glucose, POC 95 65 - 199 mg/dL [facility] Comment: Supplemental ranges: <140 mg/dL before meals <180 mg/dL all other times of the day Blood 11/12/2023 12:5 2 AM EDT 11/12/2023 12:52 AM EDT Francis Roberts MD POINT OF CARE TEST ORDERABLES Performing Organization Address City/[facility]/ZIP Co de Phone Number [facility] [place] [address] * POCT Glucose (11/11/2023 9:41 PM EDT) Glucose, POC 162 65 - 199 mg/dL [facility] Comment: Supplemental ranges: <140 mg/dL before meals <180 mg/dL all other times of the day Blood 11/11/2023 9:41 PM EDT 11/11/2023 9:41 PM EDT Francis Roberts MD POINT OF CARE TEST ORDERABLES Performing Organization Address [facility] Co de Phone Number [facility] [place] [address] * (ABNORMAL) POCT Glucose (11/11/2023 8:11 PM EDT) Glucose, POC 263(H) 65 - 199 mg/dL [facility] Comment: Supplemental ranges: <140 mg/dL before meals <180 mg/dL all other times of the day Blood 11/11/2023 8:11 PM EDT 11/11/2023 8:11 PM EDT Francis Roberts MD POINT OF CARE TEST ORDERABLES Performing Organization Address City/[facility]/ZIP Co de Phone Number [facility] [place] [address] * (ABNORMAL) POCT Glucose (11/11/2023 6:28 PM EDT) Glucose, POC 245(H) 65 - 199 mg/dL [facility] Comment: Supplemental ranges: <140 mg/dL before meals <180 mg/dL all other times of the day Blood 11/11/2023 6:28 PM EDT 11/11/2023 6:28 PM EDT Francis Roberts MD POINT OF CARE TEST ORDERABLES Performing Organization Address City/[facility] Co de Phone Number [facility] [place] [address] * (ABNORMAL) POCT Glucose (11/11/2023 4:18 PM EDT) Glucose, POC 295(H) 65 - 199 mg/dL [facility] Comment: Supplemental ranges: <140 mg/dL before meals <180 mg/dL all other times of the day Blood 11/11/2023 4:18 PM EDT 11/11/2023 4:18 PM EDT Francis Roberts MD POINT OF CARE TEST ORDERABLES Performing Organization Address [facility] Co de Phone Number [facility] [place] [address] * (ABNORMAL) POCT Glucose (11/11/2023 2:20 PM EDT) Glucose, POC 306(H) 65 - 199 mg/dL [facility] Comment: Supplemental ranges: <140 mg/dL before meals <180 mg/dL all other times of the day Blood 11/11/2023 2:20 PM EDT 11/11/2023 2:20 PM EDT Francis Roberts MD POINT OF CARE TEST ORDERABLES Performing Organization Address City/[facility]/ZIP Co de Phone Number [facility] [place] [address] * CT Abdomen & Pelvis wo Contrast (11/11/2023 12:20 PM EDT) WORKSTATION ID [id number] RAD Anatomical Region Laterality Modality Abdomen, Pelvis [...] who have questions please contact the health career professional that requested your imaging first. ? Electronically signed by: SUNSHINE ALCOCER MD, [facility] ([phone]), at 11/11/2023 1:06 PM Narrative 11/11/2023 1:06 [...] patients who have questions please contactthe health career professional that requested your imaging first. Francis Roberts MD IMG CT ORDERABLES * (ABNORMAL) POCT Glucose (11/11/2023 11:51 AM EDT) Glucose, POC 268(H) 65 - 199 mg/dL [facility] Comment: Supplemental ranges: <140 mg/dL before meals <180 mg/dL all other times of the day Blood 11/11/2023 11:5 1 AM EDT 11/11/2023 11:51 AM EDT Francis Roberts MD POINT OF CARE TEST ORDERABLES Performing Organization Address [facility]/ZIP Co de Phone Number [facility] [place] [place] [address] * POCT Glucose (11/11/2023 8:17 AM EDT) Glucose, POC 133 65 - 199 mg/dL [facility] Comment: Supplemental ranges: <140 mg/dL before meals <180 mg/dL all other times of the day Blood 11/11/2023 8:17 AM EDT 11/11/2023 8:17 AM EDT Francis Roberts MD POINT OF CARE TEST ORDERABLES [facility] [place] [address] * Shiga Toxin Detection (11/11/2023 5:41 AM EDT) Pathologist [facility] Shiga Toxin Assay Test not performed due to no enteric growth. [facility] Stool 11/11/2023 5:41 AM EDT 11/11/2023 8:06 AM EDT Narrative Resulting Agency Comment Spec In Lab Tad Greenwood MD MICROBIOLOGY - GENE RAL ORDERABLES Performing Organization Address [facility]/ZIP Co de Phone Number [facility] [place] [address] * Campylobacter Antigen (11/11/2023 5:41 AM EDT) Pathologist [facility] Campylobacter Ag Immunoassay Negative for Campylobacter Antigen [facility] Stool 11/11/2023 5:41 AM EDT 11/11/2023 8:06 AM EDT Narrative Resulting Agency Comment Spec In Lab Tad Greenwood MD MICROBIOLOGY - GENE RAL ORDERABLES Performing Organization Address [facility]/ZIP Co de Phone Number [facility] [place] [address] * Stool culture (11/11/2023 5:41 AM EDT) Pathologist [facility] Stool Culture No enteric pathogens isolated Reduced normal enteric kb isolated [facility] Stool 11/11/2023 5:41 AM EDT 11/11/2023 8:06 AM EDT Narrative Resulting Agency Comment Spec In Lab Tad Greenwood MD MICROBIOLOGY - GENE RAL ORDERABLES Performing Organization Address [facility] Co de Phone Number [facility] [place] [address] * (ABNORMAL) Differential, Automated (11/11/2023 5:13 AM EDT) Neutrophil % 68.0 % [facility] Neutrophil Absolute 7.51(H) 1.70 - 6.10 x10(3)/ L [facility] Lymph % 15.2 % [facility] Lymphocytes Abs 1.7 0.9 - 3.2 x10(3)/[facility] Monocyte % 14.1 % [facility] Monocyte Abs 1.6(H) 0.3 - 0.9 x10(3)/[facility] Eos % 1.7 % [facility] Eosinophils Abs 0.2 0.0 - 0.4 x10(3)/[facility] Basophil % 0.5 % [facility] Baso Absolute 0.0 0.0 - 0.1 x10(3)/[facility] Immature Gran % 0.50 % [facility] Comment: Immature granulocytes(IG's)percentage and absolute count will include metamyelocytes, myelocytes, and promyelocytes. Blood smears from CBCs yielding IG's will be scanned manually for concordance. If this scan disagrees with the automated IG or if promyelocytes are noted, a manual differential will be performed. Immature Gran Absolute 0.05(H) 0.00 - 0.04 x10(3)/[facility] Blood 11/11/2023 5:13 AM EDT 11/11/2023 5:25 AM EDT Narrative Resulting Agency Comment Spec In Lab Tad Greenwood MD HEMATOLOGY ORDERABL ES [facility] [place] [address] * (ABNORMAL) Hemogram (11/11/2023 5:13 AM EDT) White Blood Cell 11.0(H) 4.0 - 9.5 x10(3)/[facility] Red Blood Cell 4.26 4.00 - 5.21 x10(6)/[facility] Hemoglobin 10.0(L) 11.7 - 15.5 g/dL [facility] Hematocrit 33.4(L) 35.7 - 45.8 % [facility] Mean Cell Volume 78.4(L) 82.6 - 94.4 fL [facility] Mean Cell Hemoglobin 23.5(L) 27.1 - 32.0 pg [facility] Mean Cell Hemoglobin Concentration 29.9(L) 31.7 - 35.0 g/dL [facility] Platelet 431(H) 145 - 357 x10(3)/mc L [facility] RDW Standard Deviation 53.0(H) 37.0 - 46.0 fL [facility] RDW coefficient of variation 18.8(H) 11.5 - 14.1 % [facility] Mean Platelet Volume 10.4 7.6 - 12.9 fL [facility] NRBC% auto 0.0 % [facility] NRBC Absolute 0.000 0.000 - 0.000 x10(3)/mc L [facility] Blood 11/11/2023 5:13 AM EDT 11/11/2023 5:25 AM EDT Narrative Resulting Agency Comment Spec In Lab Tad Greenwood MD HEMATOLOGY ORDERABL ES [facility] [place] [address] * (ABNORMAL) POCT Glucose (11/11/2023 3:00 AM EDT) Glucose, POC 258(H) 65 - 199 mg/dL [facility] Comment: Supplemental ranges: <140 mg/dL before meals <180 mg/dL all other times of the day Blood 11/11/2023 3:00 AM EDT 11/11/2023 3:00 AM EDT Francis Roberts MD POINT OF CARE TEST ORDERABLES [facility] [place] [address] * Magnesium (11/11/2023 12:20 AM EDT) Magnesium 0.71 0.69 - 1.07 mmol/L [facility] Blood 11/11/2023 12:2 0 AM EDT 11/11/2023 12:22 AM EDT Narrative Resulting Agency Comment Spec In Lab Francis Roberts MD CHEMISTRY ORDERABLE S Performing Organization Address City/[facility]/ZIP Co de Phone Number [facility] [place] [address] * (ABNORMAL) Basic Metabolic Panel (non-fasting) (11/11/2023 12:20 AM EDT) Glucose 200(H) 65 - 199 mg/dL [facility] Comment:Diabetes: >=200 mg/d L plus symptoms Blood Urea Nitrogen 22(H) 8 - 18 mg/dL [facility] Creatinine 1.18 0.70 - 1.20 mg/dL [facility] Sodium 133(L) 135 - 145 mmol/L [facility] Potassium 4.9 3.5 - 5.0 mmol/L [facility] Comment: Please note: ??Patients with WBC >100,000 may have falsely elevated Potassium levels. ??For accurate Potassium quantification in these patients send serum separator tube (gold top) for subsequent determinations. ??Contact the Clinical Chemistry Laboratory if there are any questions. Chloride 99 98 - 107 mmol/L [facility] Carbon Dioxide 24 22 - 31 mmol/L [facility] Anion Gap 10 5 - 15 mmol/L [facility] Calcium 9.9 8.5 - 10.5 mg/dL [facility] Est Glomerular Filtration Rate 48(L) >=60 mL/min/1. 73 m?? [facility] Comment: This patient's estimated [...] MD CHEMISTRY ORDERABLE S Performing Organization Address [facility] Co de Phone Number [facility] [place] [address] * POCT Glucose (11/11/2023 12:13 AM EDT) Glucose, POC 195 65 - 199 mg/dL [facility] Comment: Supplemental ranges: <140 mg/dL before meals <180 mg/dL all other times of the day Blood 11/11/2023 12:1 3 AM EDT 11/11/2023 12:13 AM EDT Francis Roberts MD POINT OF CARE TEST ORDERABLES Performing Organization Address [facility] Co de Phone Number [facility] [place] [address] * (ABNORMAL) POCT Glucose (11/10/2023 7:23 PM EDT) Glucose, POC 278(H) 65 - 199 mg/dL [facility] Comment: Supplemental ranges: <140 mg/dL before meals <180 mg/dL all other times of the day Blood 11/10/2023 7:23 PM EDT 11/10/2023 7:23 PM EDT Francis Roberts MD POINT OF CARE TEST ORDERABLES Performing Organization Address City/[facility]/ZIP Co de Phone Number [facility] [place] [address] * (ABNORMAL) POCT Glucose (11/10/2023 3:01 PM EDT) Glucose, POC 264(H) 65 - 199 mg/dL [facility] Comment: Supplemental ranges: <140 mg/dL before meals <180 mg/dL all other times of the day Blood 11/10/2023 3:01 PM EDT 11/10/2023 3:01 PM EDT Francis Roberts MD POINT OF CARE TEST ORDERABLES Performing Organization Address [facility] Co de Phone Number [facility] [place] [address] * (ABNORMAL) POCT Glucose (11/10/2023 11:06 AM EDT) Glucose, POC 256(H) 65 - 199 mg/dL [facility] Comment: Supplemental ranges: <140 mg/dL before meals <180 mg/dL all other times of the day Blood 11/10/2023 11:0 6 AM EDT 11/10/2023 11:06 AM EDT Francis Roberts MD POINT OF CARE TEST ORDERABLES Performing Organization Address [facility] Co de Phone Number [facility] [place] [address] * Osmolality, urine, random (11/10/2023 9:39 AM EDT) Osmolality, Urine 454 50 - 1,200 mOsm/kg [facility] Urine Urine / Unknown 11/10/2023 9 :39 AM EDT 11/10/2023 10:09 AM EDT Narrative Resulting Agency Comment Spec In Lab Francis Roberts MD URINE ORDERABLES Performing Organization Address City/[facility]/ZIP Co de Phone Number [facility] [place] [address] * Sodium, urine, random (11/10/2023 9:39 AM EDT) Sodium, Urine 108 mmol/L [facility] Urine 11/10/2023 9:39 AM EDT 11/10/2023 9:47 AM EDT Narrative Resulting Agency Comment Spec In Lab Francis Roberts MD URINE ORDERABLES [facility] [place] [address] * POCT Glucose (11/10/2023 7:33 AM EDT) Glucose, POC 126 65 - 199 mg/dL [facility] Comment: Supplemental ranges: <140 mg/dL before meals <180 mg/dL all other times of the day Blood 11/10/2023 7:33 AM EDT 11/10/2023 7:33 AM EDT Francis Roberts MD POINT OF CARE TEST ORDERABLES Performing Organization Address City/[facility]/ZIP Co de Phone Number [facility] [place] [address] * (ABNORMAL) POCT Glucose (11/10/2023 4:08 AM EDT) Glucose, POC 201(H) 65 - 199 mg/dL [facility] Comment: Supplemental ranges: <140 mg/dL before meals <180 mg/dL all other times of the day Blood 11/10/2023 4:08 AM EDT 11/10/2023 4:08 AM EDT Francis Roberts MD POINT OF CARE TEST ORDERABLES [facility] [place] [address] * POCT Glucose (11/10/2023 12:18 AM EDT) Glucose, POC 147 65 - 199 mg/dL [facility] Comment: Supplemental ranges: <140 mg/dL before meals <180 mg/dL all other times of the day Blood 11/10/2023 12:1 8 AM EDT 11/10/2023 12:18 AM EDT Francis Roberts MD POINT OF CARE TEST ORDERABLES Performing Organization Address [facility] Co de Phone Number [facility] [place] [address] * Osmolality (11/10/2023 12:00 AM EDT) [facility] Osmolality 287 275 - 295 mOsm/kg [facility] Blood Venous Draw / Unknown 11/10/2023 11/10/2023 12:37 AM EDT Narrative Resulting Agency Comment Spec In Lab Francis Roberts MD CHEMISTRY ORDERABLE S Performing Organization Address [facility] de Phone Number [facility] [place] [address] * Scan, Peripheral Blood (11/10/2023 12:00 AM EDT) [facility] Plat estimate Increased [facility] RBC Morphology Abnormal [facility] Microcyte 1-5 /HPF [facility] Hypochromia Slight [facility] Polychromasia Present >5/HPF [facility] Ovalocytes 1-5 /HPF [facility] Tear Cell 1-5 /HPF [facility] [place] Cells 1-5 /HPF [facility] Acanthocytes 1-5 /HPF [facility] Stippled RBC Present >1/HPF [facility] Blood 11/10/2023 11/10/2023 12: 30 AM EDT Narrative Resulting Agency Comment Spec In Lab Francis Roberts MD HEMATOLOGY ORDERABL ES Performing Organization Address City/[facility] Co de Phone Number [facility] [place] [address] * (ABNORMAL) Differential, Automated (11/10/2023 12:00 AM EDT) [facility] Neutrophil % 57.0 % [facility] Neutrophil Absolute 5.31 1.70 - 6.10 x10(3)/mc L [facility] Lymph % 22.4 % [facility] Lymphocytes Abs 2.1 0.9 - 3.2 x10(3)/ L [facility] Monocyte % 17.2 % [facility] Monocyte Abs 1.6(H) 0.3 - 0.9 x10(3)/ L [facility] Eos % 2.2 % [facility] Eosinophils Abs 0.2 0.0 - 0.4 x10(3)/[facility] Basophil % 0.4 % [facility] Baso Absolute 0.0 0.0 - 0.1 x10(3)/ L [facility] Immature Gran % 0.80 % [facility] Comment: Immature granulocytes(IG's)percentage and absolute count will include metamyelocytes, myelocytes, and promyelocytes. Blood smears from CBCs yielding IG's will be scanned manually for concordance. If this scan disagrees with the automated IG or if promyelocytes are noted, a manual differential will be performed. Immature Gran Absolute 0.07(H) 0.00 - 0.04 x10(3)/mc L [facility] Blood 11/10/2023 11/10/2023 12: 30 AM EDT Narrative Resulting Agency Comment Spec In Lab Francis Roberts MD HEMATOLOGY ORDERABL ES [facility] [place] [address] * (ABNORMAL) Hemogram (11/10/2023 12:00 AM EDT) White Blood Cell 9.3 4.0 - 9.5 x10(3)/[facility] Red Blood Cell 4.07 4.00 - 5.21 x10(6)/[facility] Hemoglobin 9.4(L) 11.7 - 15.5 g/dL [facility] Hematocrit 31.1(L) 35.7 - 45.8 % [facility] Mean Cell Volume 76.4(L) 82.6 - 94.4 fL [facility] Mean Cell Hemoglobin 23.1(L) 27.1 - 32.0 pg [facility] Mean Cell Hemoglobin Concentration 30.2(L) 31.7 - 35.0 g/dL [facility] Platelet 401(H) 145 - 357 x10(3)/[facility] RDW Standard Deviation 51.8(H) 37.0 - 46.0 [facility] RDW coefficient of variation 18.9(H) 11.5 - 14.1 % [facility] Mean Platelet Volume 10.3 7.6 - 12.9 fL [facility] NRBC% auto 0.0 % [facility] NRBC Absolute 0.000 0.000 - 0.000 x10(3)/[facility] Blood 11/10/2023 11/10/2023 12: 30 AM EDT Narrative Resulting Agency Comment Spec In Lab Francis Roberts MD HEMATOLOGY ORDERABL ES [facility] [place] [address] * (ABNORMAL) Magnesium (11/10/2023 12:00 AM EDT) Pathologist [facility] Magnesium 0.63(L) 0.69 - 1.07 mmol/L [facility] Blood 11/10/2023 11/10/2023 12: 30 AM EDT Narrative Resulting Agency Comment Spec In Lab Francis Roberts MD CHEMISTRY ORDERABLE S [facility] [place] [address] * (ABNORMAL) Basic Metabolic Panel (non-fasting) (11/10/2023 12:00 AM EDT) Glucose 155 65 - 199 mg/dL [facility] Comment:Diabetes: >=200 mg/d L plus symptoms Blood Urea Nitrogen 21(H) 8 - 18 mg/dL [facility] Creatinine 0.95 0.70 - 1.20 mg/dL [facility] Sodium 134(L) 135 - 145 mmol/L [facility] Potassium 4.6 3.5 - 5.0 mmol/L [facility] Comment: Please note: ??Patients with WBC >100,000 may have falsely elevated Potassium levels. ??For accurate Potassium quantification in these patients send serum separator tube (gold top) for subsequent determinations. ??Contact the Clinical Chemistry Laboratory if there are any questions. Chloride 100 98 - 107 mmol/L [facility] Carbon Dioxide 24 22 - 31 mmol/L [facility] Anion Gap 10 5 - 15 mmol/L [facility] Calcium 9.4 8.5 - 10.5 mg/dL [facility] Est Glomerular Filtration Rate 62 >=60 mL/min/1. 73 m?? [facility] Comment: This patient's estimated [...] Lab Francis Roberts MD CHEMISTRY ORDERABLE S [facility] [place] [address] * Ferritin (11/10/2023 12:00 AM EDT) Ferritin 32 11 - 328 ng/mL [facility] Comment: Please note that as of 05/27/2023, the reference intervals for Ferritin have been updated. Blood 11/10/2023 11/10/2023 12: 30 AM EDT Narrative Resulting Agency Comment Spec In Lab Francis Roberts MD CHEMISTRY ORDERABLE S Performing Organization Address City/[facility]/ZIP Co de Phone Number [facility] [place] [address] * Folate, serum (11/10/2023 12:00 AM EDT) Folate 10.2 4.8 - 24.2 ng/mL [facility] Blood 11/10/2023 11/10/2023 12: 30 AM EDT Narrative Resulting Agency Comment Spec In Lab Francis Roberts MD CHEMISTRY ORDERABLE S [facility] [place] [address] * (ABNORMAL) Vitamin B12 (11/10/2023 12:00 AM EDT) Vitamin B12 200(L) 232 - 1,245 pg/mL [facility] Blood 11/10/2023 11/10/2023 12: 30 AM EDT Narrative Resulting Agency Comment Spec In Lab Francis Roberts MD CHEMISTRY ORDERABLE S [facility] [place] [address] * (ABNORMAL) POCT Glucose (11/09/2023 7:36 PM EDT) Glucose, POC 264(H) 65 - 199 mg/dL [facility] Comment: Supplemental ranges: <140 mg/dL before meals <180 mg/dL all other times of the day Blood 11/09/2023 7:36 PM EDT 11/09/2023 7:36 PM EDT Francis Roberts MD POINT OF CARE TEST ORDERABLES Performing Organization Address [facility] Co de Phone Number [facility] [place] [address] * (ABNORMAL) POCT Glucose (11/09/2023 4:53 PM EDT) Glucose, POC 213(H) 65 - 199 mg/dL [facility] Comment: Supplemental ranges: <140 mg/dL before meals <180 mg/dL all other times of the day Blood 11/09/2023 4:53 PM EDT 11/09/2023 4:53 PM EDT Francis Roberts MD POINT OF CARE TEST ORDERABLES Performing Organization Address [facility] Co de Phone Number [facility] [place] [address] * PATRICK, legs, multiple levels (11/09/2023 4:43 PM EDT) VB Text Report Department: Vascular Surgery Lab Patient: [id number] (HOPE YEE) CPT: 99989 Referring Physician: JOAQUIM GEORGES ?? Phone: Indications: [...] Georges MD VASCULAR ORDERABLES Performing Organization Address [facility]/ZIP Co de Phone Number [id number] * POCT Glucose (11/09/2023 11:53 AM EDT) Glucose, POC 193 65 - 199 mg/dL [facility] Comment: Supplemental ranges: <140 mg/dL before meals <180 mg/dL all other times of the day Blood 11/09/2023 11:5 3 AM EDT 11/09/2023 11:53 AM EDT Francis Roberts MD POINT OF CARE TEST ORDERABLES Performing Organization Address [facility] Co de Phone Number [facility] [place] [address] * POCT Glucose (11/09/2023 7:41 AM EDT) Glucose, POC 108 65 - 199 mg/dL [facility] Comment: Supplemental ranges: <140 mg/dL before meals <180 mg/dL all other times of the day Blood 11/09/2023 7:41 AM EDT 11/09/2023 7:41 AM EDT Francis Roberts MD POINT OF CARE TEST ORDERABLES [facility] [place] [address] * POCT Glucose (11/09/2023 4:07 AM EDT) Pathologist [facility] Glucose, POC 188 65 - 199 mg/dL [facility] Comment: Supplemental ranges: <140 mg/dL before meals <180 mg/dL all other times of the day Blood 11/09/2023 4:07 AM EDT 11/09/2023 4:07 AM EDT Francis Roberts MD POINT OF CARE TEST ORDERABLES Performing Organization Address City/[facility]/ZIP Co de Phone Number [facility] [place] [address] * (ABNORMAL) Differential, Automated (11/09/2023 12:00 AM EDT) [facility] Neutrophil % 65.6 % [facility] Neutrophil Absolute 6.35(H) 1.70 - 6.10 x10(3)/mc L [facility] Lymph % 17.3 % [facility] Lymphocytes Abs 1.7 0.9 - 3.2 x10(3)/mc L [facility] Monocyte % 15.1 % [facility] Monocyte Abs 1.5(H) 0.3 - 0.9 x10(3)/mc L [facility] Eos % 1.1 % [facility] Eosinophils Abs 0.1 0.0 - 0.4 x10(3)/mc L [facility] Basophil % 0.5 % [facility] Baso Absolute 0.0 0.0 - 0.1 x10(3)/ L [facility] Immature Gran % 0.40 % [facility] Comment: Immature granulocytes(IG's)percentage and absolute count will include metamyelocytes, myelocytes, and promyelocytes. Blood smears from CBCs yielding IG's will be scanned manually for concordance. If this scan disagrees with the automated IG or if promyelocytes are noted, a manual differential will be performed. Immature Gran Absolute 0.04 0.00 - 0.04 x10(3)/[facility] Blood 11/09/2023 11/09/2023 12: 19 AM EDT Narrative Resulting Agency Comment Spec In Lab rFancis Roberts MD HEMATOLOGY ORDERABL ES [facility] [place] [address] * (ABNORMAL) Hemogram (11/09/2023 12:00 AM EDT) White Blood Cell 9.7(H) 4.0 - 9.5 x10(3)/[facility] Red Blood Cell 4.12 4.00 - 5.21 x10(6)/[facility] Hemoglobin 9.7(L) 11.7 - 15.5 g/dL [facility] Hematocrit 32.0(L) 35.7 - 45.8 % [facility] Mean Cell Volume 77.7(L) 82.6 - 94.4 fL [facility] Mean Cell Hemoglobin 23.5(L) 27.1 - 32.0 pg [facility] Mean Cell Hemoglobin Concentration 30.3(L) 31.7 - 35.0 g/dL [facility] Platelet 391(H) 145 - 357 x10(3)/[facility] RDW Standard Deviation 52.9(H) 37.0 - 46.0 fL [facility] RDW coefficient of variation 19.0(H) 11.5 - 14.1 % [facility] Mean Platelet Volume 10.2 7.6 - 12.9 fL [facility] NRBC% auto 0.0 % [facility] NRBC Absolute 0.000 0.000 - 0.000 x10(3)/mc L [facility] Blood 11/09/2023 11/09/2023 12: 19 AM EDT Narrative Resulting Agency Comment Spec In Lab Francis Roberts MD HEMATOLOGY ORDERABL ES Performing Organization Address [facility] Co de Phone Number [facility] [place] [address] * (ABNORMAL) Magnesium (11/09/2023 12:00 AM EDT) Magnesium 0.68(L) 0.69 - 1.07 mmol/L [facility] Blood 11/09/2023 11/09/2023 12: 19 AM EDT Narrative Resulting Agency Comment Spec In Lab Francis Roberts MD CHEMISTRY ORDERABLE S Performing Organization Address [facility] Co de Phone Number [facility] [place] [address] * (ABNORMAL) Basic Metabolic Panel (non-fasting) (11/09/2023 12:00 AM EDT) Glucose 202(H) 65 - 199 mg/dL [facility] Comment:Diabetes: >=200 mg/d L plus symptoms Blood Urea Nitrogen 17 8 - 18 mg/dL [facility] Creatinine 0.86 0.70 - 1.20 mg/dL [facility] Sodium 135 135 - 145 mmol/L [facility] Potassium 4.5 3.5 - 5.0 mmol/L [facility] Comment: Please note: ??Patients with WBC >100,000 may have falsely elevated Potassium levels. ??For accurate Potassium quantification in these patients send serum separator tube (gold top) for subsequent determinations. ??Contact the Clinical Chemistry Laboratory if there are any questions. Chloride 102 98 - 107 mmol/L [facility] Carbon Dioxide 24 22 - 31 mmol/L [facility] Anion Gap 9 5 - 15 mmol/L [facility] Calcium 8.8 8.5 - 10.5 mg/dL [facility] Est Glomerular Filtration Rate 70 >=60 mL/min/1. 73 m?? [facility] Comment: This patient's estimated [...] Lab Francis Roberts MD CHEMISTRY ORDERABLE S [facility] [place] [address] * (ABNORMAL) Hepatic Function Panel (11/09/2023 12:00 AM EDT) Protein, Total 6.2 6.1 - 8.0 g/dL [facility] Albumin 3.1(L) 3.2 - 5.2 g/dL [facility] Aspartate Aminotransferase 20 0 - 30 unit/L [facility] Alanine Aminotransferase 47(H) 0 - 30 unit/L [facility] Alkaline Phosphatase 76 35 - 105 unit/L [facility] Bilirubin, Total <0.2(L) 0.2 - 1.3 mg/dL [facility] Bilirubin, Direct <0.1 0.0 - 0.3 mg/dL [facility] Blood 11/09/2023 11/09/2023 12: 19 AM EDT Narrative Resulting Agency Comment Spec In Lab Francis Roberts MD CHEMISTRY ORDERABLE S Performing Organization Address City/[facility]/ZIP Co de Phone Number [facility] [place] [address] * (ABNORMAL) POCT Glucose (11/08/2023 10:06 PM EDT) Glucose, POC 412(H) 65 - 199 mg/dL [facility] Comment: Supplemental ranges: <140 mg/dL before meals <180 mg/dL all other times of the day Blood 11/08/2023 10:0 6 PM EDT 11/08/2023 10:06 PM EDT Francis Roberts MD POINT OF CARE TEST ORDERABLES Performing Organization Address [facility]/ZIP Co de Phone Number [facility] [place] [address] * (ABNORMAL) POCT Glucose (11/08/2023 4:06 PM EDT) Glucose, POC 236(H) 65 - 199 mg/dL [facility] Comment: Supplemental ranges: <140 mg/dL before meals <180 mg/dL all other times of the day Blood 11/08/2023 4:06 PM EDT 11/08/2023 4:06 PM EDT Francis Roberts MD POINT OF CARE TEST ORDERABLES Performing Organization Address [facility]/ZIP Co de Phone Number [facility] [place] [address] * (ABNORMAL) POCT Glucose (11/08/2023 12:12 PM EDT) Glucose, POC 221(H) 65 - 199 mg/dL [facility] Comment: Supplemental ranges: <140 mg/dL before meals <180 mg/dL all other times of the day Blood 11/08/2023 12:1 2 PM EDT 11/08/2023 12:12 PM EDT Francis Roberts MD POINT OF CARE TEST ORDERABLES Performing Organization Address City/[facility] Co de Phone Number [facility] [place] [address] * POCT Glucose (11/08/2023 8:13 AM EDT) Glucose, POC 126 65 - 199 mg/dL [facility] Comment: Supplemental ranges: <140 mg/dL before meals <180 mg/dL all other times of the day Blood 11/08/2023 8:13 AM EDT 11/08/2023 8:13 AM EDT Francis Roberts MD POINT OF CARE TEST ORDERABLES Performing Organization Address [facility] Co de Phone Number [facility] [place] [address] * POCT Glucose (11/08/2023 3:51 AM EDT) Glucose, POC 108 65 - 199 mg/dL [facility] Comment: Supplemental ranges: <140 mg/dL before meals <180 mg/dL all other times of the day Blood 11/08/2023 3:51 AM EDT 11/08/2023 3:51 AM EDT Francis Roberts MD POINT OF CARE TEST ORDERABLES Performing Organization Address City/[facility] Co de Phone Number [facility] [place] [address] * (ABNORMAL) Differential, Automated (11/08/2023 12:18 AM EDT) Neutrophil % 67.2 % [facility] Neutrophil Absolute 7.18(H) 1.70 - 6.10 x10(3)/mc L [facility] Lymph % 16.9 % [facility] Lymphocytes Abs 1.8 0.9 - 3.2 x10(3)/[facility] Monocyte % 12.9 % [facility] Monocyte Abs 1.4(H) 0.3 - 0.9 x10(3)/[facility] Eos % 2.1 % [facility] Eosinophils Abs 0.2 0.0 - 0.4 x10(3)/[facility] Basophil % 0.5 % [facility] Baso Absolute 0.0 0.0 - 0.1 x10(3)/[facility] Immature Gran % 0.40 % [facility] Comment: Immature granulocytes(IG's)percentage and absolute count will include metamyelocytes, myelocytes, and promyelocytes. Blood smears from CBCs yielding IG's will be scanned manually for concordance. If this scan disagrees with the automated IG or if promyelocytes are noted, a manual differential will be performed. Immature Gran Absolute 0.04 0.00 - 0.04 x10(3)/[facility] Blood 11/08/2023 12:1 8 AM EDT 11/08/2023 12:45 AM EDT Narrative Resulting Agency Comment Spec In Lab Francis Roberts MD HEMATOLOGY ORDERABL ES [facility] [place] [address] * (ABNORMAL) Hemogram (11/08/2023 12:18 AM EDT) White Blood Cell 10.7(H) 4.0 - 9.5 x10(3)/[facility] Red Blood Cell 4.34 4.00 - 5.21 x10(6)/[facility] Hemoglobin 10.1(L) 11.7 - 15.5 g/dL [facility] Hematocrit 33.6(L) 35.7 - 45.8 % [facility] Mean Cell Volume 77.4(L) 82.6 - 94.4 fL [facility] Mean Cell Hemoglobin 23.3(L) 27.1 - 32.0 pg [facility] Mean Cell Hemoglobin Concentration 30.1(L) 31.7 - 35.0 g/dL [facility] Platelet 389(H) 145 - 357 x10(3)/mc L [facility] RDW Standard Deviation 52.9(H) 37.0 - 46.0 fL [facility] RDW coefficient of variation 18.9(H) 11.5 - 14.1 % [facility] Mean Platelet Volume 10.2 7.6 - 12.9 [facility] NRBC% auto 0.0 % [facility] NRBC Absolute 0.000 0.000 - 0.000 x10(3)/mc L [facility] Blood 11/08/2023 12:1 8 AM EDT 11/08/2023 12:45 AM EDT Narrative Resulting Agency Comment Spec In Lab Francis Roberts MD HEMATOLOGY ORDERABL ES Performing Organization Address City/[facility]/ZIP Co de Phone Number [facility] [place] [address] * POCT Glucose (11/08/2023 12:18 AM EDT) Glucose, POC 99 65 - 199 mg/dL [facility] Comment: Supplemental ranges: <140 mg/dL before meals <180 mg/dL all other times of the day Blood 11/08/2023 12:1 8 AM EDT 11/08/2023 12:18 AM EDT Francis Roberts MD POINT OF CARE TEST ORDERABLES Performing Organization Address City/[facility]/ZIP Co de Phone Number [facility] [place] [address] * Magnesium (11/08/2023 12:18 AM EDT) Magnesium 0.71 0.69 - 1.07 mmol/L [facility] Blood 11/08/2023 12:1 8 AM EDT 11/08/2023 12:45 AM EDT Narrative Resulting Agency Comment Spec In Lab Francis Roberts MD CHEMISTRY ORDERABLE S [facility] [place] [address] * Basic Metabolic Panel (non-fasting) (11/08/2023 12:18 AM EDT) Glucose 102 65 - 199 mg/dL [facility] Comment:Diabetes: >=200 mg/d L plus symptoms Blood Urea Nitrogen 11 8 - 18 mg/dL [facility] Creatinine 0.76 0.70 - 1.20 mg/dL [facility] Sodium 137 135 - 145 mmol/L [facility] Potassium 4.3 3.5 - 5.0 mmol/L [facility] Comment: Please note: ??Patients with WBC >100,000 may have falsely elevated Potassium levels. ??For accurate Potassium quantification in these patients send serum separator tube (gold top) for subsequent determinations. ??Contact the Clinical Chemistry Laboratory if there are any questions. Chloride 103 98 - 107 mmol/L [facility] Carbon Dioxide 25 22 - 31 mmol/L [facility] Anion Gap 9 5 - 15 mmol/L [facility] Calcium 8.5 8.5 - 10.5 mg/dL [facility] Est Glomerular Filtration Rate 82 >=60 mL/min/1. 73 m?? [facility] Comment: This patient's estimated [...] Lab Francis Roberts MD CHEMISTRY ORDERABLE S [facility] [place] [address] * POCT Glucose (11/07/2023 7:24 PM EDT) Glucose, POC 188 65 - 199 mg/dL [facility] Comment: Supplemental ranges: <140 mg/dL before meals <180 mg/dL all other times of the day Blood 11/07/2023 7:24 PM EDT 11/07/2023 7:24 PM EDT Francis Roberts MD POINT OF CARE TEST ORDERABLES Performing Organization Address [facility]/ZIP Co de Phone Number [facility] [place] [address] * POCT Glucose (11/07/2023 5:42 PM EDT) Glucose, POC 153 65 - 199 mg/dL [facility] Comment: Supplemental ranges: <140 mg/dL before meals <180 mg/dL all other times of the day Blood 11/07/2023 5:42 PM EDT 11/07/2023 5:42 PM EDT Francis Roberts MD POINT OF CARE TEST ORDERABLES [facility] [place] [address] * POCT Glucose (11/07/2023 3:42 PM EDT) Glucose, POC 176 65 - 199 mg/dL [facility] Comment: Supplemental ranges: <140 mg/dL before meals <180 mg/dL all other times of the day Blood 11/07/2023 3:42 PM EDT 11/07/2023 3:42 PM EDT Francis Roberts MD POINT OF CARE TEST ORDERABLES Performing Organization Address City/[facility]/ZIP Co de Phone Number [facility] [place] [address] * Green Tube HOLD (11/07/2023 3:40 PM EDT) Green Hold Sample in lab. [facility] Blood No Charge / Unknown 11/07/2023 3:40 PM EDT 11/07/2023 3:46 PM EDT Ivy Bennett MD CHEMISTRY ORDERABL ES Performing Organization Address [facility] Co de Phone Number [facility] [place] [address] * POCT Glucose (11/07/2023 11:46 AM EDT) Glucose, POC 167 65 - 199 mg/dL [facility] Comment: Supplemental ranges: <140 mg/dL before meals <180 mg/dL all other times of the day Blood 11/07/2023 11:4 6 AM EDT 11/07/2023 11:46 AM EDT Francis Roberts MD POINT OF CARE TEST ORDERABLES Performing Organization Address [facility] Co de Phone Number [facility] [place] [address] * (ABNORMAL) pro-Brain Natriuretic Peptide (11/07/2023 7:54 AM EDT) NT-proBNP 4,733(H) <=124 pg/mL [facility] Blood Venous Draw / Unknown 11/07/2023 7:54 AM EDT 11/07/2023 8:34 AM EDT Narrative Resulting Agency Comment Spec In Lab Francis Roberts MD CHEMISTRY ORDERABLE S [facility] [place] [address] * Basic Metabolic Panel (non-fasting) (11/07/2023 7:54 AM EDT) Glucose 111 65 - 199 mg/dL [facility] Comment:Diabetes: >=200 mg/d L plus symptoms Blood Urea Nitrogen 12 8 - 18 mg/dL [facility] Creatinine 0.89 0.70 - 1.20 mg/dL [facility] Sodium 139 135 - 145 mmol/L [facility] Potassium 4.7 3.5 - 5.0 mmol/L [facility] Comment: Please note: ??Patients with WBC >100,000 may have falsely elevated Potassium levels. ??For accurate Potassium quantification in these patients send serum separator tube (gold top) for subsequent determinations. ??Contact the Clinical Chemistry Laboratory if there are any questions. Chloride 103 98 - 107 mmol/L [facility] Carbon Dioxide 28 22 - 31 mmol/L [facility] Anion Gap 8 5 - 15 mmol/L [facility] Calcium 9.3 8.5 - 10.5 mg/dL [facility] Est Glomerular Filtration Rate 68 >=60 mL/min/1. 73 m?? [facility] Comment: This patient's estimated [...] Narrative Resulting Agency Comment Spec In Lab Joauqim Georges MD CHEMISTRY ORDERABLES Performing Organization Address City/[facility]/ZIP Co de Phone Number [facility] [place] [address] * POCT Glucose (11/07/2023 7:52 AM EDT) Glucose, POC 97 65 - 199 mg/dL [facility] Comment: Supplemental ranges: <140 mg/dL before meals <180 mg/dL all other times of the day Blood 11/07/2023 7:52 AM EDT 11/07/2023 7:52 AM EDT Darlyn Flores MD POINT OF CARE CHANCE T ORDERABLES Performing Organization Address [facility] Co de Phone Number [facility] [place] [address] * POCT Glucose (11/07/2023 4:10 AM EDT) Glucose, POC 98 65 - 199 mg/dL [facility] Comment: Supplemental ranges: <140 mg/dL before meals <180 mg/dL all other times of the day Blood 11/07/2023 4:10 AM EDT 11/07/2023 4:10 AM EDT Darlyn Flores MD POINT OF CARE CHANCE T ORDERABLES Performing Organization Address City/[facility] Co de Phone Number [facility] [place] [address] * (ABNORMAL) Differential, Automated (11/07/2023 12:22 AM EDT) Neutrophil % 64.8 % [facility] Neutrophil Absolute 6.96(H) 1.70 - 6.10 x10(3)/mc L [facility] Lymph % 21.7 % [facility] Lymphocytes Abs 2.3 0.9 - 3.2 x10(3)/ L [facility] Monocyte % 10.6 % [facility] Monocyte Abs 1.1(H) 0.3 - 0.9 x10(3)/ L [facility] Eos % 2.0 % [facility] Eosinophils Abs 0.2 0.0 - 0.4 x10(3)/[facility] Basophil % 0.5 % [facility] Baso Absolute 0.0 0.0 - 0.1 x10(3)/[facility] Immature Gran % 0.40 % [facility] Comment: Immature granulocytes(IG's)percentage and absolute count will include metamyelocytes, myelocytes, and promyelocytes. Blood smears from CBCs yielding IG's will be scanned manually for concordance. If this scan disagrees with the automated IG or if promyelocytes are noted, a manual differential will be performed. Immature Gran Absolute 0.04 0.00 - 0.04 x10(3)/[facility] Blood 11/07/2023 12:2 2 AM EDT 11/07/2023 12:42 AM EDT Narrative Resulting Agency Comment Spec In Lab Darlyn Flores MD HEMATOLOGY ORDERA BLES [facility] [place] [address] * (ABNORMAL) Hemogram (11/07/2023 12:22 AM EDT) White Blood Cell 10.7(H) 4.0 - 9.5 x10(3)/[facility] Red Blood Cell 4.05 4.00 - 5.21 x10(6)/[facility] Hemoglobin 9.5(L) 11.7 - 15.5 g/dL [facility] Hematocrit 31.7(L) 35.7 - 45.8 % [facility] Mean Cell Volume 78.3(L) 82.6 - 94.4 fL [facility] Mean Cell Hemoglobin 23.5(L) 27.1 - 32.0 pg [facility] Mean Cell Hemoglobin Concentration 30.0(L) 31.7 - 35.0 g/dL [facility] Platelet 368(H) 145 - 357 x10(3)/mc L [facility] RDW Standard Deviation 53.1(H) 37.0 - 46.0 fL [facility] RDW coefficient of variation 18.9(H) 11.5 - 14.1 % [facility] Mean Platelet Volume 10.1 7.6 - 12.9 fL [facility] [facility] NRBC% auto 0.0 % [facility] NRBC Absolute 0.000 0.000 - 0.000 x10(3)/mc L [facility] Blood 11/07/2023 12:2 2 AM EDT 11/07/2023 12:42 AM EDT Narrative Resulting Agency Comment Spec In Lab Darlyn Flores MD HEMATOLOGY ORDERA BLES [facility] [place] [address] * Basic Metabolic Panel (non-fasting) (11/07/2023 12:22 AM EDT) Glucose 123 65 - 199 mg/dL [facility] Comment:Diabetes: >=200 mg/d L plus symptoms Blood Urea Nitrogen 17 8 - 18 mg/dL [facility] Creatinine 0.96 0.70 - 1.20 mg/dL [facility] Sodium 140 135 - 145 mmol/L [facility] Potassium 5.0 3.5 - 5.0 mmol/L [facility] Comment: Please note: ??Patients with WBC >100,000 may have falsely elevated Potassium levels. ??For accurate Potassium quantification in these patients send serum separator tube (gold top) for subsequent determinations. ??Contact the Clinical Chemistry Laboratory if there are any questions. Chloride 106 98 - 107 mmol/L [facility] Carbon Dioxide 26 22 - 31 mmol/L [facility] Anion Gap 8 5 - 15 mmol/L [facility] Calcium 8.7 8.5 - 10.5 mg/dL [facility] Est Glomerular Filtration Rate 62 >=60 mL/min/1. 73 m?? [facility] Comment: This patient's estimated [...] Georges MD CHEMISTRY ORDERABLES Performing Organization Address [facility]/ZIP Co de Phone Number [facility] [place] [address] * Phosphorus (11/07/2023 12:22 AM EDT) Phosphorus 3.1 2.5 - 4.5 mg/dL [facility] Blood 11/07/2023 12:2 2 AM EDT 11/07/2023 12:42 AM EDT Narrative Resulting Agency Comment Spec In Lab Amber Pulido APRN CHEMISTRY ORDERABL ES Performing Organization Address City/[facility]/ZIP Co de Phone Number [facility] [place] [address] * (ABNORMAL) Magnesium (11/07/2023 12:22 AM EDT) Magnesium 0.68(L) 0.69 - 1.07 mmol/L [facility] Blood 11/07/2023 12:2 2 AM EDT 11/07/2023 12:42 AM EDT Narrative Resulting Agency Comment Spec In Lab Amber Pulido APRN CHEMISTRY ORDERABL ES Performing Organization Address City/[facility]/ZIP Co de Phone Number [facility] [place] [address] * POCT Glucose (11/07/2023 12:18 AM EDT) Glucose, POC 117 65 - 199 mg/dL [facility] Comment: Supplemental ranges: <140 mg/dL before meals <180 mg/dL all other times of the day Blood 11/07/2023 12:1 8 AM EDT 11/07/2023 12:18 AM EDT Darlyn Flores MD POINT OF CARE CHANCE T ORDERABLES Performing Organization Address [facility]/ZIP Co de Phone Number [facility] [place] [address] * POCT Glucose (11/06/2023 7:30 PM EDT) Glucose, POC 192 65 - 199 mg/dL [facility] Comment: Supplemental ranges: <140 mg/dL before meals <180 mg/dL all other times of the day Blood 11/06/2023 7:30 PM EDT 11/06/2023 7:30 PM EDT Darlyn Flores MD POINT OF CARE CHANCE T ORDERABLES Performing Organization Address City/[facility]/ZIP Co de Phone Number [facility] [place] [address] * POCT Glucose (11/06/2023 6:10 PM EDT) Glucose, POC 186 65 - 199 mg/dL [facility] Comment: Supplemental ranges: <140 mg/dL before meals <180 mg/dL all other times of the day Blood 11/06/2023 6:10 PM EDT 11/06/2023 6:10 PM EDT Darlyn Flores MD POINT OF CARE CHANCE T ORDERABLES Performing Organization Address City/[facility] Co de Phone Number [facility] [place] [address] * POCT Glucose (11/06/2023 3:52 PM EDT) Glucose, POC 179 65 - 199 mg/dL [facility] Comment: Supplemental ranges: <140 mg/dL before meals <180 mg/dL all other times of the day Blood 11/06/2023 3:52 PM EDT 11/06/2023 3:52 PM EDT Darlyn Flores MD POINT OF CARE CHANCE T ORDERABLES Performing Organization Address City/[facility] Co de Phone Number [facility] [place] [address] * Basic Metabolic Panel (non-fasting) (11/06/2023 3:33 PM EDT) Glucose 178 65 - 199 mg/dL [facility] Comment:Diabetes: >=200 mg/d L plus symptoms Blood Urea Nitrogen 17 8 - 18 mg/dL [facility] Creatinine 0.92 0.70 - 1.20 mg/dL [facility] Sodium 135 135 - 145 mmol/L [facility] Potassium 4.8 3.5 - 5.0 mmol/L [facility] Comment: Please note: ??Patients with WBC >100,000 may have falsely elevated Potassium levels. ??For accurate Potassium quantification in these patients send serum separator tube (gold top) for subsequent determinations. ??Contact the Clinical Chemistry Laboratory if there are any questions. Chloride 103 98 - 107 mmol/L [facility] Carbon Dioxide 23 22 - 31 mmol/L [facility] Anion Gap 9 5 - 15 mmol/L [facility] Calcium 8.6 8.5 - 10.5 mg/dL [facility] Est Glomerular Filtration Rate 65 >=60 mL/min/1. 73 m?? [facility] Comment: This patient's estimated [...] In Lab Joaquim Georges MD CHEMISTRY ORDERABLES [facility] [place] [address] * (ABNORMAL) POCT Glucose (11/06/2023 12:19 PM EDT) Glucose, POC 215(H) 65 - 199 mg/dL [facility] Comment: Supplemental ranges: <140 mg/dL before meals <180 mg/dL all other times of the day Blood 11/06/2023 12:1 9 PM EDT 11/06/2023 12:19 PM EDT Darlyn Flores MD POINT OF CARE CHANCE T ORDERABLES [facility] [place] [address] * POCT Glucose (11/06/2023 7:48 AM EDT) Glucose, POC 138 65 - 199 mg/dL [facility] Comment: Supplemental ranges: <140 mg/dL before meals <180 mg/dL all other times of the day Blood 11/06/2023 7:48 AM EDT 11/06/2023 7:48 AM EDT Joaquim Georges MD POINT OF CARE TEST O RDERABLES [facility] [place] [address] * (ABNORMAL) Basic Metabolic Panel (non-fasting) (11/06/2023 7:45 AM EDT) Glucose 137 65 - 199 mg/dL [facility] Comment:Diabetes: >=200 mg/d L plus symptoms Blood Urea Nitrogen 19(H) 8 - 18 mg/dL [facility] Creatinine 0.91 0.70 - 1.20 mg/dL [facility] Sodium 141 135 - 145 mmol/L [facility] Potassium 5.3(H) 3.5 - 5.0 mmol/L [facility] Comment: Please note: ??Patients with WBC >100,000 may have falsely elevated Potassium levels. ??For accurate Potassium quantification in these patients send serum separator tube (gold top) for subsequent determinations. ??Contact the Clinical Chemistry Laboratory if there are any questions. Chloride 106 98 - 107 mmol/L [facility] Carbon Dioxide 24 22 - 31 mmol/L [facility] Anion Gap 11 5 - 15 mmol/L [facility] Calcium 8.5 8.5 - 10.5 mg/dL [facility] Est Glomerular Filtration Rate 66 >=60 mL/min/1. 73 m?? [facility] Comment: This patient's estimated [...] Georges MD CHEMISTRY ORDERABLES Performing Organization Address City/[facility]/ZIP Co de Phone Number [facility] [place] [address] * POCT Glucose (11/06/2023 4:19 AM EDT) Glucose, POC 107 65 - 199 mg/dL [facility] Comment: Supplemental ranges: <140 mg/dL before meals <180 mg/dL all other times of the day Blood 11/06/2023 4:19 AM EDT 11/06/2023 4:19 AM EDT Joaquim Georges MD POINT OF CARE TEST O RDERABLES Performing Organization Address [facility] Co de Phone Number [facility] [place] [address] * POCT Glucose (11/06/2023 3:08 AM EDT) Glucose, POC 97 65 - 199 mg/dL [facility] Comment: Supplemental ranges: <140 mg/dL before meals <180 mg/dL all other times of the day Blood 11/06/2023 3:08 AM EDT 11/06/2023 3:08 AM EDT Joaquim Georges MD POINT OF CARE TEST O RDERAMICHELE Performing Organization Address [facility]/ZIP Co de Phone Number [facility] [place] [address] * POCT Glucose (11/06/2023 2:04 AM EDT) Pathologist [facility] Glucose, POC 102 65 - 199 mg/dL [facility] Comment: Supplemental ranges: <140 mg/dL before meals <180 mg/dL all other times of the day Blood 11/06/2023 2:04 AM EDT 11/06/2023 2:04 AM EDT Joaquim Georges MD POINT OF CARE TEST O RDERABLES [facility] [place] [address] * C-peptide (11/06/2023 1:44 AM EDT) [facility] C-Peptide 2.0 1.1 - 4.4 ng/mL [facility] Comment:Reference intervals derived from fasting individuals Blood Venous Draw / Unknown 11/06/2023 1:44 AM EDT 11/06/2023 1:50 AM EDT Narrative Resulting Agency Comment Spec In Lab Zoe Cleveland APRN CHEMISTRY ORDERABLE S Performing Organization Address [facility]/ZIP Co de Phone Number [facility] [place] [address] * Potassium (11/06/2023 1:44 AM EDT) [facility] Potassium 4.9 3.5 - 5.0 mmol/L [facility] Comment: Please note: ??Patients [...] Georges MD CHEMISTRY ORDERABLES Performing Organization Address City/[facility]/ZIP Co de Phone Number [facility] [place] [address] * POCT Glucose (11/06/2023 1:16 AM EDT) Glucose, POC 86 65 - 199 mg/dL [facility] Comment: Supplemental ranges: <140 mg/dL before meals <180 mg/dL all other times of the day Blood 11/06/2023 1:16 AM EDT 11/06/2023 1:16 AM EDT Joaquim Georges MD POINT OF CARE TEST O RDERICKA [facility] [place] [address] * POCT Glucose (11/06/2023 12:46 AM EDT) Glucose, POC 75 65 - 199 mg/dL [facility] Comment: Supplemental ranges: <140 mg/dL before meals <180 mg/dL all other times of the day Blood 11/06/2023 12:4 6 AM EDT 11/06/2023 12:46 AM EDT Joaquim Georges MD POINT OF CARE TEST O RUBEN [facility] [place] [address] * POCT Glucose (11/06/2023 12:18 AM EDT) Glucose, POC 75 65 - 199 mg/dL [facility] Comment: Supplemental ranges: <140 mg/dL before meals <180 mg/dL all other times of the day Blood 11/06/2023 12:1 8 AM EDT 11/06/2023 12:18 AM EDT Joaquim Georges MD POINT OF CARE TEST O RUBEN [facility] [place] [address] * (ABNORMAL) Basic Metabolic Panel (non-fasting) (11/05/2023 11:45 PM EDT) Glucose 85 65 - 199 mg/dL [facility] Comment:Diabetes: >=200 mg/d L plus symptoms Blood Urea Nitrogen 22(H) 8 - 18 mg/dL [facility] Creatinine 1.03 0.70 - 1.20 mg/dL [facility] Sodium 140 135 - 145 mmol/L [facility] Potassium Not Perf 3.5 - 5.0 [facility] Comment: Unable to quantitate [...] questions. Chloride 109(H) 98 - 107 mmol/L [facility] Carbon Dioxide 24 22 - 31 mmol/L [facility] Anion Gap 7 5 - 15 mmol/L [facility] Calcium 8.6 8.5 - 10.5 mg/dL [facility] Est Glomerular Filtration Rate 57(L) >=60 mL/min/1. 73 m?? [facility] Comment: This patient's estimated [...] Georges MD CHEMISTRY ORDERABLES Performing Organization Address [facility] Co de Phone Number [facility] [place] [address] * Phosphorus (11/05/2023 11:45 PM EDT) Phosphorus 3.3 2.5 - 4.5 mg/dL [facility] Blood 11/05/2023 11:4 5 PM EDT 11/05/2023 11:56 PM EDT Narrative Resulting Agency Comment Spec In Lab Amber Rangel Pulido [employer] CHEMISTRY ORDERABL ES Performing Organization Address [facility] Phone Number [facility] [place] [address] * Magnesium (11/05/2023 11:45 PM EDT) Magnesium 0.88 0.69 - 1.07 mmol/L [facility] Blood 11/05/2023 11:4 5 PM EDT 11/05/2023 11:56 PM EDT Narrative Resulting Agency Comment Spec In Lab Amber Pulido MECHANIC [employer]OV[employer] CHEMISTRY ORDERABL ES Performing Organization Address [facility] de Phone Number [facility] [place] [address] * POCT Glucose (11/05/2023 11:43 PM EDT) Glucose, POC 91 65 - 199 mg/dL [facility] Comment: Supplemental ranges: <140 mg/dL before meals <180 mg/dL all other times of the day Blood 11/05/2023 11:4 3 PM EDT 11/05/2023 11:43 PM EDT Joaquim Georges MD POINT OF CARE TEST O RDERABLES Performing Organization Address [facility] Co de Phone Number [facility] [place] [address] * POCT Glucose (11/05/2023 11:04 PM EDT) Glucose, POC 114 65 - 199 mg/dL [facility] Comment: Supplemental ranges: <140 mg/dL before meals <180 mg/dL all other times of the day Blood 11/05/2023 11:0 4 PM EDT 11/05/2023 11:04 PM EDT Joaquim Georges MD POINT OF CARE TEST O RDERAMICHELE [facility] [place] [address] * POCT Glucose (11/05/2023 10:03 PM EDT) Glucose, POC 179 65 - 199 mg/dL [facility] Comment: Supplemental ranges: <140 mg/dL before meals <180 mg/dL all other times of the day Blood 11/05/2023 10:0 3 PM EDT 11/05/2023 10:03 PM EDT Joaquim Georges MD POINT OF CARE TEST O RDERAMICHELE [facility] [place] [address] * (ABNORMAL) POCT Glucose (11/05/2023 9:09 PM EDT) Glucose, POC 247(H) 65 - 199 mg/dL [facility] Comment: Supplemental ranges: <140 mg/dL before meals <180 mg/dL all other times of the day Blood 11/05/2023 9:09 PM EDT 11/05/2023 9:09 PM EDT Joaquim Georges MD POINT OF CARE TEST O RDERAMICHELE [facility] [place] [address] * (ABNORMAL) POCT Glucose (11/05/2023 8:15 PM EDT) Glucose, POC 254(H) 65 - 199 mg/dL [facility] Comment: Supplemental ranges: <140 mg/dL before meals <180 mg/dL all other times of the day Blood 11/05/2023 8:15 PM EDT 11/05/2023 8:15 PM EDT Joaquim Georges MD POINT OF CARE TEST O RDERAMICHELE [facility] [place] [address] * POCT Glucose (11/05/2023 6:46 PM EDT) Glucose, POC 165 65 - 199 mg/dL [facility] Comment: Supplemental ranges: <140 mg/dL before meals <180 mg/dL all other times of the day Blood 11/05/2023 6:46 PM EDT 11/05/2023 6:46 PM EDT Joaquim Geogres MD POINT OF CARE TEST O JUAN MANUELERAMICHELE Performing Organization Address City/[facility]/ZIP Co de Phone Number [facility] [place] [address] * POCT Glucose (11/05/2023 5:55 PM EDT) Glucose, POC 131 65 - 199 mg/dL [facility] Comment: Supplemental ranges: <140 mg/dL before meals <180 mg/dL all other times of the day Blood 11/05/2023 5:55 PM EDT 11/05/2023 5:55 PM EDT Joaquim Georges MD POINT OF CARE TEST O RDERAMICHELE [facility] [place] [address] * (ABNORMAL) BLOOD GAS 2 VENOUS (11/05/2023 4:16 PM EDT) pH, Venous 7.34 7.32 - 7.42 [facility] PCO2, Venous 42 41 - 51 mmHg [facility] PO2, Venous 32 25 - 40 mmHg [facility] Bicarbonate, Venous 22.0 mmol/L [facility] Base Excess, Venous -3.7 mmol/L [facility] Hgb Blood Gas 10.0(L) 11.7 - 15.5 g/dL [facility] Oxyhemoglobin, Venous 53.9 % [facility] Carboxyhemoglob in, Venous 0.3 % [facility] Comment: Nonsmokers: 0.5-1.5% COHB Smokers: Variable, but usually less than 10% Toxic: 20-30% COHB Lethal: Greater than 60% COHB Methemoglobin, Venous 0.7 <=1.5 % [facility] Na Whole Blood 134(L) 135 - 145 mmol/L [facility] K Whole Blood 4.8 3.5 - 5.0 mmol/L [facility] Comment: Please note: Patients with WBC >100,000 may have falsely elevated Potassium levels. Contact the Clinical Chemistry Laboratory if there are any questions. ICa Whole Blood 1.17 1.15 - 1.33 mmol/L [facility] Comment: Note: ??Total bilirubin higher than 20 mg/dL may lead to falsely low ionized calcium. CL Whole Blood 104 98 - 107 mmol/L [facility] Gluc Whole Bld 143 65 - 199 mg/dL [facility] Comment:Diabetes: >=200 mg/d L plus symptoms Lactate WB 1.6 0.5 - 2.2 mmol/L [facility] Flow, Jorge 2.0 LPM [facility] Blood Gas Source Venous [facility] Blood 11/05/2023 4:16 PM EDT 11/05/2023 4:16 PM EDT Joaquim Georges MD POINT OF CARE TEST O RUBEN Performing Organization Address City/[facility]/ZIP Co de Phone Number [facility] [place] [address] * POCT Glucose (11/05/2023 4:11 PM EDT) Glucose, POC 143 65 - 199 mg/dL [facility] Comment: Supplemental ranges: <140 mg/dL before meals <180 mg/dL all other times of the day Blood 11/05/2023 4:11 PM EDT 11/05/2023 4:11 PM EDT Joaquim Georges MD POINT OF CARE TEST O RUBEN Performing Organization Address [facility]/ZIP Co de Phone Number [facility] [place] [address] * POCT Glucose (11/05/2023 2:58 PM EDT) Glucose, POC 188 65 - 199 mg/dL [facility] Comment: Supplemental ranges: <140 mg/dL before meals <180 mg/dL all other times of the day Blood 11/05/2023 2:58 PM EDT 11/05/2023 2:58 PM EDT Joaquim Georges MD POINT OF CARE TEST O RUBEN Performing Organization Address City/[facility]/ZIP Co de Phone Number [facility] [place] [address] * POCT Glucose (11/05/2023 2:01 PM EDT) Glucose, POC 107 65 - 199 mg/dL [facility] Comment: Supplemental ranges: <140 mg/dL before meals <180 mg/dL all other times of the day Blood 11/05/2023 2:01 PM EDT 11/05/2023 2:01 PM EDT Kiko Che MD POINT OF CARE TEST ORDERABLES Performing Organization Address [facility] Co de Phone Number [facility] [place] [address] * POCT Glucose (11/05/2023 1:29 PM EDT) Glucose, POC 106 65 - 199 mg/dL [facility] Comment: Supplemental ranges: <140 mg/dL before meals <180 mg/dL all other times of the day Blood 11/05/2023 1:29 PM EDT 11/05/2023 1:29 PM EDT Kiko Che MD POINT OF CARE TEST ORDERABLES Performing Organization Address [facility] de Phone Number [facility] [place] [address] * POCT Glucose (11/05/2023 1:02 PM EDT) Glucose, POC 110 65 - 199 mg/dL [facility] Comment: Supplemental ranges: <140 mg/dL before meals <180 mg/dL all other times of the day Blood 11/05/2023 1:02 PM EDT 11/05/2023 1:02 PM EDT Kiko Che MD POINT OF CARE TEST ORDERABLES Performing Organization Address [facility] Co de Phone Number [facility] [place] [address] * (ABNORMAL) BMP w/fasting Glucose (11/05/2023 12:24 PM EDT) Glucose Fasting 115(H) 65 - 99 mg/dL [facility] Comment: ?Fasting* Glucose Interpretive [...] of Diabetes Mellitus, Position Statement from the [place] [employer]. ??Diabetes Care, Volume 33, Supplement 1, Jun 2009 Blood Urea Nitrogen 27(H) 8 - 18 mg/dL [facility] Creatinine 1.13 0.70 - 1.20 mg/dL [facility] Sodium 137 135 - 145 mmol/L [facility] Potassium 4.8 3.5 - 5.0 mmol/L [facility] Comment: Please note: ??Patients with WBC >100,000 may have falsely elevated Potassium levels. ??For accurate Potassium quantification in these patients send serum separator tube (gold top) for subsequent determinations. ??Contact the Clinical Chemistry Laboratory if there are any questions. Chloride 106 98 - 107 mmol/L [facility] Carbon Dioxide 21(L) 22 - 31 mmol/L [facility] Anion Gap 10 5 - 15 mmol/L [facility] Calcium 8.3(L) 8.5 - 10.5 mg/dL [facility] Est Glomerular Filtration Rate 51(L) >=60 mL/min/1. 73 m?? [facility] Comment: This patient's estimated [...] Kianna WANG CHEMISTRY ORDERABLES Performing Organization Address City/[facility]/ZIP Co de Phone Number [facility] [place] [address] * C-peptide (11/05/2023 12:24 PM EDT) C-Peptide 1.5 1.1 - 4.4 ng/mL [facility] Comment:Reference intervals derived from fasting individuals Blood 11/05/2023 12:2 4 PM EDT 11/05/2023 12:34 PM EDT Narrative Resulting Agency Comment Spec In Lab Kiko Che MD CHEMISTRY ORDERABL ES Performing Organization Address [facility] Co de Phone Number [facility] [place] [address] * POCT Glucose (11/05/2023 12:09 PM EDT) Glucose, POC 135 65 - 199 mg/dL [facility] Comment: Supplemental ranges: <140 mg/dL before meals <180 mg/dL all other times of the day Blood 11/05/2023 12:0 9 PM EDT 11/05/2023 12:09 PM EDT Kiko Che MD POINT OF CARE TEST ORDERABLES Performing Organization Address [facility]/ZIP Co de Phone Number [facility] [place] [address] * POCT Glucose (11/05/2023 11:40 AM EDT) Glucose, POC 130 65 - 199 mg/dL [facility] Comment: Supplemental ranges: <140 mg/dL before meals <180 mg/dL all other times of the day Blood 11/05/2023 11:4 0 AM EDT 11/05/2023 11:40 AM EDT Kiko Che MD POINT OF CARE TEST ORDERABLES [facility] [place] [address] * POCT Glucose (11/05/2023 11:03 AM EDT) Glucose, POC 137 65 - 199 mg/dL [facility] Comment: Supplemental ranges: <140 mg/dL before meals <180 mg/dL all other times of the day Blood 11/05/2023 11:0 3 AM EDT 11/05/2023 11:03 AM EDT Kiko Che MD POINT OF CARE TEST ORDERABLES Performing Organization Address [facility] de Phone Number [facility] [place] [address] * ECHO COMPLETE W CONTRAST (11/05/2023 10:22 AM EDT) EF 70 HEARTLAB SYSTEM Anatomical Region Laterality Modality Cardiac Other 11/05/2023 8:42 AM EDT Narrative 11/05/2023 10:39 AM EDT [address] [place] [address] ? Echocardiogram Report Name: HOPE YEE ?Study Date: 11/05/2023 08:42 AM ? Patient Location: [facility]US IC15 A : 1950 ? Height: 168 cm ? Account: [id number] Age: 73 yrs ? Weight: 88 kg Gender: Female ?BSA: 2.0 m2 Ordering Physician: ABRAN REYNA Referring Physician: ELSIE OLIVARES Performed By: Chio Ibanez RDCS Reason For Study: atrial fibrillation Interpreting Fellow: Andrade Osborn. Exam Location: [facility]. Interpretation Summary Normal left ventricular size with hyperdynamic systolic function. Ejection fraction is visually 70%. There are no regional wall motion abnormalities. The right ventricle is mildly dilated with normal systolic function. There is no significant valvular disease. Compared to prior echo from 01/08/18, there are no major changes. Procedure Complete-[id number]. Image enhancement Optison was used for left [...] Note Ran Tran MD - 11/05/2023 1 [place] [address] Echocardiogram Report Name: HOPE YEE Study Date: 408:42 AM Patient Location: [address] : 1950 Height: 168 cm Account: [id number] Age: 73 yrs Weight: 88 kg Gender: Female BSA: 2.0 m2 Ordering Physician: ABRAN REYNA Referring Physician: ELSIE OLIVARES Performed By: Chio Ibanez RDCS Reason For Study: atrial fibrillation Interpreting Fellow: Andrade Osborn. Exam Location: [facility]. Interpretation Summary Normal left ventricular size with hyperdynamic systolic function.Ejection fraction is visually 70%. There are no regional wall motionabnormalities. The right ventricle is mildly dilated with normal systolic function. There is no significant valvular disease. Compared to prior echo from 01/08/18, there are no major changes. Procedure Complete-[id number]. Image enhancement Optison was used for left [...] Glucose, POC 165 65 - 199 mg/dL [facility] Comment: Supplemental ranges: <140 mg/dL before meals <180 mg/dL all other times of the day Blood 11/05/2023 10:0 3 AM EDT 11/05/2023 10:03 AM EDT Kiko Che MD POINT OF CARE TEST ORDERABLES [facility] [place] [address] * (ABNORMAL) POCT Glucose (11/05/2023 9:13 AM EDT) Glucose, POC 204(H) 65 - 199 mg/dL [facility] Comment: Supplemental ranges: <140 mg/dL before meals <180 mg/dL all other times of the day Blood 11/05/2023 9:13 AM EDT 11/05/2023 9:13 AM EDT Kiko Che MD POINT OF CARE TEST ORDERABLES [facility] [place] [address] * (ABNORMAL) Basic Metabolic Panel (non-fasting) (11/05/2023 8:00 AM EDT) Glucose 301(H) 65 - 199 mg/dL [facility] Comment:Diabetes: >=200 mg/d L plus symptoms Blood Urea Nitrogen 30(H) 8 - 18 mg/dL [facility] Creatinine 1.23(H) 0.70 - 1.20 mg/dL [facility] Sodium 134(L) 135 - 145 mmol/L [facility] Potassium 5.3(H) 3.5 - 5.0 mmol/L [facility] Comment: Please note: ??Patients with WBC >100,000 may have falsely elevated Potassium levels. ??For accurate Potassium quantification in these patients send serum separator tube (gold top) for subsequent determinations. ??Contact the Clinical Chemistry Laboratory if there are any questions. Chloride 103 98 - 107 mmol/L [facility] Carbon Dioxide 18(L) 22 - 31 mmol/L [facility] Anion Gap 13 5 - 15 mmol/L [facility] Calcium 8.3(L) 8.5 - 10.5 mg/dL [facility] Est Glomerular Filtration Rate 46(L) >=60 mL/min/1. 73 m?? [facility] Comment: This patient's estimated [...] In Lab Abran Reyna APRN CHEMISTRY ORDERABLES [facility] [place] [address] * (ABNORMAL) POCT Glucose (11/05/2023 7:52 AM EDT) Glucose, POC 276(H) 65 - 199 mg/dL [facility] Comment: Supplemental ranges: <140 mg/dL before meals <180 mg/dL all other times of the day Blood 11/05/2023 7:52 AM EDT 11/05/2023 7:52 AM EDT Kiko Che MD POINT OF CARE TEST ORDERABLES [facility] [place] [address] * (ABNORMAL) POCT Glucose (11/05/2023 6:55 AM EDT) Glucose, POC 333(H) 65 - 199 mg/dL [facility] Comment: Supplemental ranges: <140 mg/dL before meals <180 mg/dL all other times of the day Blood 11/05/2023 6:55 AM EDT 11/05/2023 6:55 AM EDT Kiko Che MD POINT OF CARE TEST ORDERABLES [facility] [place] [address] * (ABNORMAL) BLOOD GAS 2 VENOUS (11/05/2023 6:04 AM EDT) pH, Venous 7.29(Criti sanjuana) 7.32 - 7.42 [facility] Comment:Noted by instrument designer. PCO2, Venous 34(L) 41 - 51 mmHg [facility] PO2, Venous 48(H) 25 - 40 mmHg [facility] Bicarbonate, Venous 15.9 mmol/L [facility] Base Excess, Venous -10.7 mmol/L [facility] Hgb Blood Gas 10.5(L) 11.7 - 15.5 g/dL [facility] Oxyhemoglobin, Venous 76.9 % [facility] Carboxyhemoglo bin, Venous 0.3 % [facility] Comment: Nonsmokers: 0.5-1.5% COHB Smokers: Variable, but usually less than 10% Toxic: 20-30% COHB Lethal: Greater than 60% COHB Methemoglobin, Venous 0.5 <=1.5 % [facility] Na Whole Blood 129(L) 135 - 145 mmol/L [facility] K Whole Blood 5.5(H) 3.5 - 5.0 mmol/L [facility] Comment: Please note: Patients with WBC >100,000 may have falsely elevated Potassium levels. Contact the Clinical Chemistry Laboratory if there are any questions. ICa Whole Blood 1.14(L) 1.15 - 1.33 mmol/L [facility] Comment: Note: ??Total bilirubin higher than 20 mg/dL may lead to falsely low ionized calcium. CL Whole Blood 100 98 - 107 mmol/L [facility] Gluc Whole Bld 450(H) 65 - 199 mg/dL [facility] Comment:Diabetes: >=200 mg/d L plus symptoms Lactate WB 4.1(Critic al) 0.5 - 2.2 mmol/L [facility] Comment:Noted by instrument designer. Flow, Jorge 3.0 LPM [facility] Blood Gas Source Venous [facility] Temperature, Venous 37.0 Celsius [facility] Blood 11/05/2023 6:04 AM EDT 11/05/2023 6:04 AM EDT Kiko Che MD POINT OF CARE TEST ORDERABLES [facility] [place] [address] * (ABNORMAL) Hemoglobin A1c (11/05/2023 6:00 AM EDT) Hemoglobin A1c 13.1(H) 4.3 - 5.6 % [facility] Comment: Reference Range: 4.3 [...] Mellitus, Diabetes Care 2013; 36: Suppl. 1, S66-75 Estimated Average Glucose See note mg/dL [facility] Comment: Estimated Average Glucose not appropriate for patients over 70 years of age. Blood 11/05/2023 6:00 AM EDT 11/05/2023 6:06 AM EDT Narrative Resulting Agency Comment Spec In Lab Abran Reyna SHO CHEMISTRY ORDERABLES [facility] [place] [id number] * (ABNORMAL) Troponin (11/05/2023 6:00 AM EDT) Troponin-T, High Sensitivity 29(H) <=14 ng/L [facility] Comment: This patient's troponin [...] troponin value can be found in the [facility] Test Catalog Troponin - [facility] Test Catalog Reference: Fourth [place] Definition of Myocardial Infarction. Journal of the [place] [employer] Cardiology 2018;72:3631-5161 Blood 11/05/2023 6:00 AM EDT 11/05/2023 6:06 AM EDT Narrative Resulting Agency Comment Spec In Lab Abran Reyna APRN CHEMISTRY ORDERABLES Performing Organization Address City/[facility]/ZIP Co de Phone Number [facility] [place] [address] * (ABNORMAL) POCT Glucose (11/05/2023 5:58 AM EDT) Glucose, POC 443(H) 65 - 199 mg/dL [facility] Comment: Supplemental ranges: <140 mg/dL before meals <180 mg/dL all other times of the day Blood 11/05/2023 5:58 AM EDT 11/05/2023 5:58 AM EDT Kiko Che MD POINT OF CARE TEST ORDERABLES Performing Organization Address [facility]/ZIP Co de Phone Number [facility] [place] [address] * (ABNORMAL) _Urinalysis with microscopic (11/05/2023 5:35 AM EDT) Glucose, Urine Dipstick >=1000(Criti sanjuana) Negative mg/dL [facility] Comment: Urinalysis result NOT critical without a combination of Glucose greater than or equal to 500 mg/dL AND Ketones greater than or equal to 80 mg/dL Protein, Urine Dipstick Negative Negative mg/dL [facility] Bilirubin, Urine Dipstick Negative Negative mg/dL [facility] Comment: Clinical correlation required for positive Urine Bilirubin results as false positive may occur with some drugs and drug related products. If a false positive is suspected a serum total bilirubin should be considered if clinically indicated. Urobilinogen, Urine Dipstick Normal Normal mg/dL [facility] pH, Urn (dipstick) 5.5 5.0 - 8.0 [facility] Blood, Urine Dipstick Negative Negative mg/dL [facility] Ketone, Urine Dipstick Negative Negative mg/dL [facility] Nitrite, Urine Dipstick Negative Negative [facility] Leukocytes, Urine Dipstick Small(A) Negative [facility] Appearance, Urine Dipstick Clear Clear [facility] Specific [place] Urine Automated 1.026 1.005 - 1.030 [facility] Color, Urine Dipstick Yellow Yellow [facility] RBC, Urine 2 0 - 4 /HPF [facility] WBC, Urine 92(H) 0 - 5 /HPF [facility] Bacteria, Urine Rare(A) None /HPF [facility] Hyaline Casts, Urine 4(H) 0 - 2 /LPF [facility] Cystine Crystal, Urine Positive(A) None /HPF [facility] Urine 11/05/2023 5:35 AM EDT 11/05/2023 6:07 AM EDT Narrative Resulting Agency Comment Spec In Lab Abran Reyna APRN URINE ORDERABLES [facility] [place] [address] * (ABNORMAL) POCT Glucose (11/05/2023 5:08 AM EDT) Glucose, POC 490(H) 65 - 199 mg/dL [facility] Comment: Supplemental ranges: <140 mg/dL before meals <180 mg/dL all other times of the day Blood 11/05/2023 5:08 AM EDT 11/05/2023 5:08 AM EDT Kiko Che MD POINT OF CARE TEST ORDERABLES [facility] [place] [address] * (ABNORMAL) POCT Glucose (11/05/2023 4:25 AM EDT) Pathologist [facility] Glucose, POC 532(Critic al) 65 - 199 mg/dL [facility] Comment: Supplemental ranges: <140 mg/dL before meals <180 mg/dL all other times of the day Blood 11/05/2023 4:25 AM EDT 11/05/2023 4:25 AM EDT Kiko Che MD POINT OF CARE TEST ORDERABLES Performing Organization Address [facility] Co de Phone Number [facility] [place] [address] * Respiratory Panel PCR (11/05/2023 4:20 AM EDT) [facility] Respiratory Panel Source HEART NURSE Swab [facility] Respiratory Panel PCR Negative Negative [facility] Comment: Respiratory Panels are performed on the BuzzElement, using multiplexed PCR nucleic acid detection. ??Negative results do not preclude respiratory infection and should not be used as the sole basis for diagnosis, treatment or other management decisions. Adenovirus Not Detected Not Detected [facility] Coronavirus HKU1 Not Detected Not Detected [facility] Coronavirus NL63 Not Detected Not Detected [facility] Coronavirus 229E Not Detected Not Detected [facility] Coronavirus OC43 Not Detected Not Detected [facility] SARS-CoV-2 Not Detected Not Detected [facility] Comment: Testing for SARS-CoV-2 (Severe acute respiratory syndrome coronavirus 2) to aid in the diagnosis of COVID-19 is performed using the Bio[employer] Respiratory Panel 2.1 ([employer]) as authorized by the FDA issued Emergency Use Authorization (EUA). This panel also tests for multiple other viral and bacterial pathogens. This assay is intended for In-vitro Diagnostic (IVD) use with nasopharyngeal swabs in viral transport media. The assay is performed based on the instructions for use and additional guidance provided by the FDA. Testing is performed in laboratories within the [facility], each of which is certified under the [...] fact sheets at the following FDA website: https://www.fda.gov/medical-devices/ftsgdqbjkwj-dulyhdl-8381-ueqxy-40-uayjezvcq- use-a qwwslafblfgff-hqzdicr-idsrafr/jlgcx-vdihlbdwsxl-ffei Human Metapneumovirus Not Detected Not Detected [facility] Human Rhinovirus/Enterov irus Not Detected Not Detected [facility] Influenza A Not Detected Not Detected [facility] Influenza B Not Detected Not Detected [facility] Parainfluenza 1 Not Detected Not Detected [facility] Parainfluenza 2 Not Detected Not Detected [facility] Parainfluenza 3 Not Detected Not Detected [facility] Parainfluenza 4 Not Detected Not Detected [facility] Respiratory Syncytial Virus Not Detected Not Detected [facility] Chlamydophila pneumoniae Not Detected Not Detected [facility] Mycoplasma pneumoniae Not Detected Not Detected [facility] Nasopharyngeal Swab 11/05/19 4:20 AM EDT 11/05/2023 5:06 AM EDT Narrative Resulting Agency Comment Spec In Lab Abran Reyna APRN MICROBIOLOGY - [place] [address] * Blood culture (11/05/2023 4:15 AM EDT) Blood Culture No growth at 5 days. [facility] Blood STRUCTURE OF LEFT FOREARM / Unknown 11/05/2023 4:15 AM EDT 11/05/2023 5:05 AM EDT Narrative Resulting Agency Comment Spec In Lab Abran Reyna APRN MICROBIOLOGY - BLOOD ORDERABLES Performing Organization Address City/[facility]/[place] [address] * Blood culture (11/05/2023 4:00 AM EDT) Blood Culture No growth at 5 days. [facility] Blood STRUCTURE OF LEFT UPPER LIMB / Unknown 11/05/2023 4:00 AM EDT 11/05/2023 5:03 AM EDT Narrative Resulting Agency Comment Spec In Lab Abran Reyna APRN MICROBIOLOGY - BLOOD ORDERABLES [place] [address] * XR Chest One View (11/05/2023 3:58 AM EDT) WORKSTATION ID [id number] RAD Anatomical Region Laterality Modality Chest N/A [...] who have questions please contact the health career professional that requested your imaging first. ? Electronically signed by: Emeka Wolfe MD, [facility] ([phone]), at 11/05/2023 4:37 AM Narrative 11/05/2023 4:37 AM EDT EXAMINATION: XR [...] patients who have questions please contactthe health career professional that requested your imaging first. Electronically signed by: Emeka Wolfe MD, [facility]([phone]), at 11/05/2023 4:37 AM Abran Reyna SHO IMG DX ORDERABLES * (ABNORMAL) BLOOD GAS 2 VENOUS (11/05/2023 3:39 AM EDT) pH, Venous 7.25(Criti sanjuana) 7.32 - 7.42 [facility] Comment:Noted by instrument designer. PCO2, Venous 40(L) 41 - 51 mmHg [facility] PO2, Venous 33 25 - 40 mmHg [facility] Bicarbonate, Venous 16.9 mmol/L [facility] Base Excess, Venous -10.4 mmol/L [facility] Hgb Blood Gas 10.9(L) 11.7 - 15.5 g/dL [facility] Oxyhemoglobin, Venous 51.9 % [facility] Carboxyhemoglob in, Venous 0.3 % [facility] Comment: Nonsmokers: 0.5-1.5% COHB Smokers: Variable, but usually less than 10% Toxic: 20-30% COHB Lethal: Greater than 60% COHB Methemoglobin, Venous 0.7 <=1.5 % [facility] Na Whole Blood 130(L) 135 - 145 mmol/L [facility] K Whole Blood 6.0(H) 3.5 - 5.0 mmol/L [facility] Comment: Please note: Patients with WBC >100,000 may have falsely elevated Potassium levels. Contact the Clinical Chemistry Laboratory if there are any questions. ICa Whole Blood 1.15 1.15 - 1.33 mmol/L [facility] Comment: Note: ??Total bilirubin higher than 20 mg/dL may lead to falsely low ionized calcium. CL Whole Blood 100 98 - 107 mmol/L [facility] Gluc Whole Bld 573(Critic al) 65 - 199 mg/dL [facility] Comment: Noted by instrument designer. Diabetes: >=200 mg/dL plus symptoms Lactate WB 5.2(Critic al) 0.5 - 2.2 mmol/L [facility] Comment:Noted by instrument designer. Flow, Jorge 6.0 LPM [facility] Blood Gas Source Venous [facility] Blood 11/05/2023 3:39 AM EDT 11/05/2023 3:39 AM EDT Kiko Che MD POINT OF CARE TEST ORDERABLES [facility] [place] [address] * Scan, Peripheral Blood (11/05/2023 3:35 AM EDT) Plat estimate Increased [facility] RBC Morphology Abnormal [facility] Hypochromia Slight [facility] Ovalocytes 1-5 /HPF [facility] [place] Cells gtr than 10 /HPF [facility] Blood 11/05/2023 3:35 AM EDT 11/05/2023 3:59 AM EDT Narrative Resulting Agency Comment Spec In Lab Abran Reyna MECHANIC RECOVERY HEMATOLOGY ORDERABLE S [facility] [place] [address] * (ABNORMAL) Differential, Automated (11/05/2023 3:35 AM EDT) Neutrophil % 87.3 % [facility] Neutrophil Absolute 8.98(H) 1.70 - 6.10 x10(3)/mc L [facility] Lymph % 7.6 % [facility] Lymphocytes Abs 0.8(L) 0.9 - 3.2 x10(3)/mc L [facility] Monocyte % 3.6 % [facility] Monocyte Abs 0.4 0.3 - 0.9 x10(3)/mc L [facility] Eos % 0.1 % [facility] Eosinophils Abs 0.0 0.0 - 0.4 x10(3)/mc L [facility] Basophil % 0.4 % [facility] Baso Absolute 0.0 0.0 - 0.1 x10(3)/mc L [facility] Immature Gran % 1.00 % [facility] Comment: Immature granulocytes(IG's)percentage and absolute count will include metamyelocytes, myelocytes, and promyelocytes. Blood smears from CBCs yielding IG's will be scanned manually for concordance. If this scan disagrees with the automated IG or if promyelocytes are noted, a manual differential will be performed. Immature Gran Absolute 0.10(H) 0.00 - 0.04 x10(3)/mc L [facility] Blood 11/05/2023 3:35 AM EDT 11/05/2023 3:59 AM EDT Narrative Resulting Agency Comment Spec In Lab Abran Reyna APRN HEMATOLOGY ORDERABLE S Performing Organization Address City/[facility]/ZIP Co de Phone Number [facility] [place] [address] * (ABNORMAL) Hemogram (11/05/2023 3:35 AM EDT) White Blood Cell 10.3(H) 4.0 - 9.5 x10(3)/mc L [facility] Red Blood Cell 4.09 4.00 - 5.21 x10(6)/mc L [facility] Hemoglobin 9.7(L) 11.7 - 15.5 g/dL [facility] Hematocrit 32.4(L) 35.7 - 45.8 % [facility] Mean Cell Volume 79.2(L) 82.6 - 94.4 fL [facility] Mean Cell Hemoglobin 23.7(L) 27.1 - 32.0 pg [facility] Mean Cell Hemoglobin Concentration 29.9(L) 31.7 - 35.0 g/dL [facility] Platelet 428(H) 145 - 357 x10(3)/mc L [facility] RDW Standard Deviation 54.1(H) 37.0 - 46.0 fL [facility] RDW coefficient of variation 18.8(H) 11.5 - 14.1 % [facility] Mean Platelet Volume 10.3 7.6 - 12.9 fL [facility] NRBC% auto 0.0 % [facility] NRBC Absolute 0.000 0.000 - 0.000 x10(3)/ L [facility] Blood 11/05/2023 3:35 AM EDT 11/05/2023 3:59 AM EDT Narrative Resulting Agency Comment Spec In Lab Abran Reyna APRN HEMATOLOGY ORDERABLE S [facility] [place] [address] * (ABNORMAL) Osmolality (11/05/2023 3:35 AM EDT) Osmolality 315(H) 275 - 295 mOsm/kg [facility] Blood 11/05/2023 3:35 AM EDT 11/05/2023 3:58 AM EDT Narrative Resulting Agency Comment Spec In Lab Abran Reyna MECHANIC RECOVERY CHEMISTRY ORDERABLES Performing Organization Address City/[facility]/ZIP Co de Phone Number [facility] [place] [address] * (ABNORMAL) Troponin (11/05/2023 3:35 AM EDT) Troponin-T, High Sensitivity 34(H) <=14 ng/L [facility] Comment: This patient's troponin [...] troponin value can be found in the [facility] Test Catalog Troponin - [facility] Test Catalog Reference: Fourth [place] Definition of Myocardial Infarction. Journal of the [place] College [employer] Cardiology 2018;72:2530-0873 Blood 11/05/2023 3:35 AM EDT 11/05/2023 3:58 AM EDT Narrative Resulting Agency Comment Spec In Lab Abran Reyna MECHANIC RECOVERY CHEMISTRY ORDERABLES [facility] [place] [address] * CK (11/05/2023 3:35 AM EDT) Pathologist [facility] Creatine Kinase 90 0 - 160 unit/L [facility] Blood 11/05/2023 3:35 AM EDT 11/05/2023 3:58 AM EDT Narrative Resulting Agency Comment Spec In Lab Abran Reyna APRN CHEMISTRY ORDERABLES Performing Organization Address [facility] de Phone Number [facility] [place] [address] * (ABNORMAL) Beta Hydroxybutyrate (11/05/2023 3:35 AM EDT) [facility] Beta-hydroxybuturat e 0.45(H) 0.00 - 0.30 mmol/L [facility] Comment: This test has not been cleared by the [place] FDA. Performance characteristics of this test were determined by [facility] in accordance with CLIA requirements. This laboratory is qualified under CLIA to perform high-complexity testing. Blood 11/05/2023 3:35 AM EDT 11/05/2023 3:58 AM EDT Narrative Resulting Agency Comment Spec In Lab Abran Reyna MECHANIC RECOVERY CHEMISTRY ORDERABLES Performing Organization Address [facility] de Phone Number [facility] [place] [address] * (ABNORMAL) Hepatic Function Panel (11/05/2023 3:35 AM EDT) Pathologist [facility] Protein, Total 6.6 6.1 - 8.0 g/dL [facility] Albumin 3.7 3.2 - 5.2 g/dL [facility] Aspartate Aminotransferase 268(H) 0 - 30 unit/L [facility] Alanine Aminotransferase 174(H) 0 - 30 unit/L [facility] Alkaline Phosphatase 119(H) 35 - 105 unit/L [facility] Bilirubin, Total 0.3 0.2 - 1.3 mg/dL [facility] Bilirubin, Direct 0.2 0.0 - 0.3 mg/dL [facility] Blood 11/05/2023 3:35 AM EDT 11/05/2023 3:59 AM EDT Narrative Resulting Agency Comment Spec In Lab Abran Reyna MECHANIC RECOVERY CHEMISTRY ORDERABLES [facility] [place] [address] * Phosphorus (11/05/2023 3:35 AM EDT) Phosphorus 4.0 2.5 - 4.5 mg/dL [facility] Blood 11/05/2023 3:35 AM EDT 11/05/2023 3:59 AM EDT Narrative Resulting Agency Comment Spec In Lab Abran Reyna MECHANIC RECOVERY CHEMISTRY ORDERABLES Performing Organization Address City/[facility]/ZIP Co de Phone Number [facility] [place] [address] * (ABNORMAL) Magnesium (11/05/2023 3:35 AM EDT) Magnesium 0.62(L) 0.69 - 1.07 mmol/L [facility] Blood 11/05/2023 3:35 AM EDT 11/05/2023 3:59 AM EDT Narrative Resulting Agency Comment Spec In Lab Abran Reyna MECHANIC RECOVERY CHEMISTRY ORDERABLES Performing Organization Address City/[facility]/ZIP Co de Phone Number [facility] [place] [address] * (ABNORMAL) Basic Metabolic Panel (non-fasting) (11/05/2023 3:35 AM EDT) Glucose 574(Criti sanjuana) 65 - 199 mg/dL [facility] Comment: called by HADLEY/read back by Maribel Jones / 11/05/23 0456 Diabetes: >=200 mg/dL plus symptoms Blood Urea Nitrogen 35(H) 8 - 18 mg/dL [facility] Creatinine 1.41(H) 0.70 - 1.20 mg/dL [facility] Sodium 130(L) 135 - 145 mmol/L [facility] [facility] Potassium 6.2(Criti sanjuana) 3.5 - 5.0 mmol/L [facility] Comment: called by [place] /read back by maribel Jones / 11/05/23 0456 Please note: ??Patients with WBC >100,000 may have falsely elevated Potassium levels. ??For accurate Potassium quantification in these patients send serum separator tube (gold top) for subsequent determinations. ??Contact the Clinical Chemistry Laboratory if there are any questions. Chloride 99 98 - 107 mmol/L [facility] Carbon Dioxide 16(L) 22 - 31 mmol/L [facility] Anion Gap 15 5 - 15 mmol/L [facility] Calcium 8.6 8.5 - 10.5 mg/dL [facility] Est Glomerular Filtration Rate 39(L) >=60 mL/min/1. 73 m?? [facility] Comment: This patient's estimated [...] In Lab Abran Reyna APRN CHEMISTRY ORDERABLES [facility] [place] [address] * APTT (11/05/2023 3:35 AM EDT) Partial Thromboplastin Time 37 25 - 37 sec [facility] Comment: The PTT is NOT appropriate for heparin monitoring. Use the Anti-Xa level for heparin monitoring (HEP UFH) or LMWH monitoring (HEP LMW). A PTT less than 37 seconds generally indicates adequate hemostasis. Blood 11/05/2023 3:35 AM EDT 11/05/2023 3:59 AM EDT Narrative Resulting Agency Comment Spec In Lab Abran Reyna SHO HEMATOLOGY ORDERABLE S Performing Organization Address [facility] Co de Phone Number [facility] [place] [address] * (ABNORMAL) Prothrombin Time (11/05/2023 3:35 AM EDT) Prothrombin Time 18.9(H) 9.4 - 12.5 sec [facility] International Normalization Ratio 1.7 [facility] Comment: An INR <2.0 [...] APRN HEMATOLOGY ORDERABLE S Performing Organization Address City/[facility]/ZIP Co de Phone Number [facility] [place] [address] * (ABNORMAL) POCT Glucose (11/05/2023 3:30 AM EDT) Glucose, POC 508(Critic al) 65 - 199 mg/dL [facility] Comment: Supplemental ranges: <140 mg/dL before meals <180 mg/dL all other times of the day Blood 11/05/2023 3:30 AM EDT 11/05/2023 3:30 AM EDT Kiko Che MD POINT OF CARE TEST ORDERABLES Performing Organization Address [facility] Co de Phone Number [facility] [place] [address] * EKG 12 Lead (11/05/2023 3:10 AM EDT) Ventricular rate 92 BPM MUSE SYSTEM QRS Duration 74 ms MUSE SYSTEM Q-T Interval 398 ms MUSE SYSTEM QTC Calculated (Bezet) 492 ms MUSE SYSTEM Calculated R Twilight 84 degrees MUSE SYSTEM Calculated T Twilight 33 degrees MUSE SYSTEM INTERPRETATION Atrial fibrillation Low voltage QRS Prolonged QTc Abnormal ECG When compared with ECG of 11-JAN-2018 11:06, Nonspecific T wave abnormality no longer evident in Inferior leads Confirmed by fellow MD Johnson Augustin ([id number]) on 11/05/2023 2:07:55 PM Confirmed by MD Funk Danette ([id number]) on 11/06/2023 5:30:09 PM MUSE SYSTEM 11/05/2023 3:10 AM EDT 11/06/2023 5:30 PM EDT Joaquim Georges MD ECG ORDERABLES Performing Organization Address [facility] Co de Phone Number MUSE SYSTEM * (ABNORMAL) POCT Glucose (11/05/2023 3:03 AM EDT) Glucose, POC 496(H) 65 - 199 mg/dL [facility] Comment: Supplemental ranges: <140 mg/dL before meals <180 mg/dL all other times of the day Blood 11/05/2023 3:03 AM EDT 11/05/2023 3:03 AM EDT Kiko Che MD POINT OF CARE TEST ORDERABLES [facility] [address] [facility] [address] [place] [address] documented in this encounter Visit Diagnoses Diagnosis [...] documented as of this encounter Care Teams Sticker Operator Relationship Specialty Start Date End Date Dean Camilo PA [address] [place] [address] PCP - General Internal Medicine 02/01/21 documented as of this encounter
--- OUTSIDE RECORDS SUMMARY | 2024-02-24 19:40 | XMS_ITS | Encounter Summary ---
Author Organization [facility] [place] [address] Care Team Providers Care Historic Interpreter Name Role Phone Hoa Jacques APRN Primary Care Provider + Reason for Visit * Reason Onset Date Comments Medication Refill 05/01/2014 Encounter Details Date Type Department Care Team (Late st Contact Info) Description 05/01/2014 Refill Cardiology at [address] [address] Cathie Venegas MD [facility] [place] [address] Medication Refill Social History Tobacco Use Types [...] fibrillation documented in this encounter Care Teams Historic Interpreter Relationship Specialty Start Date End Date Hoa Jacques APRN PCP - General 06/24/10 12/19/17 documented as of this encounter
--- OUTSIDE RECORDS SUMMARY | 2024-02-24 19:40 | XMS_ITS | Encounter Summary ---
Author Organization [facility] [address] Care Team Providers Care Tarp Repairer Name Role Phone Dean Camilo Primary Care Provider Encounter Details Date Type Department Care Team (Late st Contact Info) Description 07/31/2021 2:10 AM EST Ancillary Procedure [place] [address] Sunil Cuba MD [facility] [place] [address] Social History Tobacco Use Types Packs/Day Years [...] MD IMG FILM LIBRARY ORD ERABLES ARLEEN [place], [place] documented in this encounter Visit Diagnoses Not on filedocumented in this encounter Care Teams Tarp Repairer Relationship Specialty Start Date End Date Dean Camilo PA [address] [place] [address] PCP - General Internal Medicine 02/01/21 documented as of this encounter
--- OUTSIDE RECORDS SUMMARY | 2024-02-24 19:40 | XMS_ITS | Encounter Summary ---
Author Organization [facility] [place] [address] Care Team Providers Care Shoe Repair Cobbler Name Role Phone Dean Camilo Primary Care Provider Reason for Visit * Reason Comments Medication Refill Encounter Details Date Type Department Care Team (Late st Contact Info) Description 06/09/2014 Refill Cardiology at [address] [address] Cathie Venegas MD [facility] [place] [address] Medication Refill Social History Tobacco Use Types [...] on filedocumented in this encounter Care Teams Shoe Repair Cobbler Relationship Specialty Start Date End Date Dean Camilo PA [address] [place] [id number] PCP - General Internal Medicine 02/01/21 documented as of this encounter
--- OUTSIDE RECORDS SUMMARY | 2024-02-24 19:40 | XMS_ITS | Encounter Summary ---
Author Organization [facility] Address [facility] [place] [address] Care Team Providers Care Winery Worker Name Role Phone Dean Camilo Primary Care Provider Reason for Referral * Diagnostic Test (Routine) - Closed Specialty Diagnoses / Procedures Referred By Rommel bhat Referred To Contact Diagnoses Diabetic ulcer of toe of right foot associated with type 2 diabetes mellitus, with fat layer exposed Procedures PATRICK, legs, multiple levels Nancy Jeffries APRN [facility] [place] [address] [facility] [address] [place] [address] Referral ID Status Reason Start Date Expiration Date V isits Requested Visits Authorized [id number] Closed Specialty Service Requested 02/15/2021 02/15/2022 1 1 Reason for Visit * Consultation (Routine) - Closed Specialty Diagnoses / Procedures Referred By Contjohn t Referred To Contact Wound Care Diagnoses Type 2 diabetes mellitus with hyperglycemia, with long-term current use of insulin Skin ulcer of toe of right foot, limited to breakdown of skin Roni Vargas MD [facility] [place] [address] [facility] [place] [address] Referral ID Status Reason Start Date Expiration Date V isits Requested Visits Authorized [id number] Closed Consult, Test & Treat 02/07/2021 02/07/2022 1 1 Encounter Details Date Type Department Care Team (Late st Contact Info) Description 02/15/2021 4:00 PM EDT Office [place] [address] Nancy Jeffries APRN [facility] [place] [address] Diabetic ulcer of toe of right foot [...] Jeffries APRN - 02/15/2021 4:00 PM EDT nursing home assesment 3 per week to assess for [...] Beef, chicken, fish Beans, Lentils, peanut butter Tamazight and regular yogurt Cheese, eggs Boost, Ensure [...] taken care of by your physician or theatre program director. ?? Avoid using any chemical or strong antiseptic solutions on your feet. Iodine, salicylic acid, corn/callus removers may burn the skin. documented in this encounter Progress Notes * Nancy Jeffries APRN - 02/15/2021 4:00 PM EDT Images from the original note were not included. [facility] Initial Consultation Note HPI: [...] prior to the patient's appointment. Home Care: [facility] Patient Active Problem List Diagnosis [...] 5th toe Nails: long, thick 5.07 filament [place] Lorne monofilament exam: 01/29 Wound location Measurement [...] or sooner with question or concerns. Instructions: nursing home assesment 3 per week to assess for [...] Beef, chicken, fish Beans, Lentils, peanut butter Tamazight and regular yogurt Cheese, eggs Boost, Ensure [...] taken care of by your physician or theatre program director. ?? Avoid using any chemical or strong antiseptic solutions on your feet. Iodine, salicylic acid, corn/callus removers may burn the skin. Cc: Roni Vargas MD [facility] [place] [address] PCP: KATHLEEN Retana documented in this encounter Plan of Treatment Not on file documented as of this encounter Results * PATRICK, legs, multiple levels (02/28/2021 12:51 PM EDT) VB Text Report Department: Vascular Surgery Lab Patient: [id number] (DHAVAL YEE) CPT: 62862 ICD10: L97.512;E11.621 Referring Physician: NANCY JEFFRIES ?? [...] 02/28/2021 12:5 1 PM EDT Nancy Jeffries EDI ANALYST VASCULAR ORDERABL ES VASCUBASE documented in this encounter Visit Diagnoses Diagnosis Diabetic ulcer of toe of right foot associated with type 2 diabetes mellitus, with fat layer exposed Type 2 diabetes mellitus with hyperglycemia, with long-term current use of insulin documented in this encounter Care Teams Winery Worker Relationship Specialty Start Date End Date Dean Camilo PA [address] [place] [address] PCP - General Internal Medicine 02/01/21 documented as of this encounter
--- OUTSIDE RECORDS SUMMARY | 2024-02-24 19:40 | XMS_ITS | Encounter Summary ---
[place] [address] Care Team Providers Care Grinder Watch Parts Name Role Phone Dean Camilo Primary Care Provider [phone] Reason for Visit * Reason Comments Wound Check Encounter Details Date Type Department Care Team (Late st Contact Info) Description 02/28/2021 2:30 PM EDT Office [place] [address] Carol Langford APRN [facility] [place] [address] Type 2 diabetes mellitus with hyperglycemia, with [...] drainage (thick yellow/green drainage) Malodor Contact the [facility] with any above symptoms Thursday- Thursday 8:00AM-4:30PM ([phone]). If weekends / holidays / evenings, please report to the Emergency Department. documented in this encounter Progress Notes * Carol Langford APRN - 02/28/2021 2:30 PM EDT Images from the original note were not included. [facility] Progress Note Chief Complaint: [...] to the patient's appointment. ?? Home Care: [facility] ROS: Negative for constitutional symptoms [...] drainage (thick yellow/green drainage) Malodor Contact the [facility] with any above symptoms Thursday- Thursday 8:00AM-4:30PM ([phone]). If weekends / holidays / evenings, please [...] uncontrolled documented in this encounter Care Teams Grinder Watch Parts Relationship Specialty Start Date End Date Dean Camilo PA [address] [place] [address] PCP - General Internal Medicine 02/01/21 documented as of this encounter
--- OUTSIDE RECORDS SUMMARY | 2024-02-24 19:40 | XMS_ITS | Encounter Summary ---
Author Organization [facility] Address [facility] [place] [address] Care Team Providers Care Auto Apprentice Mechanic Name Role Phone Dean Camilo Primary Care Provider [phone] Reason for Visit * Reason Comments Medication Refill Encounter Details Date Type Department Care Team (Late st Contact Info) Description 05/09/2018 Refill Cardiology at [address] [address] [facility] [address] Medication Refill Social History Tobacco Use Types [...] on filedocumented in this encounter Care Teams Auto Apprentice Mechanic Relationship Specialty Start Date End Date Dean Camilo PA Kirti [address] [place] [address] [phone] PCP - General Internal Medicine 02/01/21 documented as of this encounter
--- OUTSIDE RECORDS SUMMARY | 2024-02-24 19:40 | XMS_ITS | Encounter Summary ---
Author Organization [facility] [place] [address] Care Team Providers Care Golf Club Weigher Name Role Phone Hoa Jacques APRN Primary Care Provider + Reason for Visit * Reason Onset Date Comments Medication Refill 04/03/2014 Encounter Details Date Type Department Care Team (Late st Contact Info) Description 04/03/2014 Refill Cardiology at [address] [address] Cathie Venegas MD [facility] [place] [address] Medication Refill Social History Tobacco Use Types [...] on filedocumented in this encounter Care Teams Golf Club Weigher Relationship Specialty Start Date End Date Hoa Jacques APRN PCP - General 06/24/10 12/19/17 documented as of this encounter
--- OUTSIDE RECORDS SUMMARY | 2024-02-24 19:40 | XMS_ITS | Encounter Summary ---
Author Organization [facility] Address [facility] [place] [address] Care Team Providers Care Geotechnician Name Role Phone Dean Camilo Primary Care Provider [phone] Encounter Details Date Type Department Care Team (Late st Contact Info) Description 11/05/2023 Telephone Cardiology at [address] [address] MD [facility] [address] Social History Tobacco Use Types Packs/Day Years [...] included. Initial Contact Date: 11/05/23 Referring Provider: [facility] Patient Location: [facility], HPI: Hope Busby is a 73 y.o. female with a history of persistent atrial fibrillation ([id number] 4, on Xarelto), SVT , diabetes type 2, hypertension, hyperlipidemia and obesity who was transferred from [facility] for diarrhea and fatigue. In the [...] high grade heart block. Marlen St MD Cutter Tender documented in this encounter Plan of Treatment Not on file documented as of this encounter Visit Diagnoses Not on filedocumented in this encounter Care Teams Geotechnician Relationship Specialty Start Date End Date Dean Camilo PA [address] [place] [address] PCP - General Internal Medicine 02/01/21 documented as of this encounter
--- OUTSIDE RECORDS SUMMARY | 2024-02-24 19:40 | XMS_ITS | Encounter Summary ---
[place] [address] Care Team Providers Care Director Of Catering Sales Name Role Phone Dean Camilo Primary Care Provider [phone] Reason for Visit * Reason Onset Date Comments Appointment 02/06/2021 Encounter Details Date Type Department Care Team ([facility] Contact Info) Description 02/06/2021 Telephone [place] [address] Zaynab Jerome I Appointment Social History Tobacco [...] on filedocumented in this encounter Care Teams Director Of Catering Sales Relationship Specialty Start Date End Date Dean Camilo PA [address] [place] [address] PCP - General Internal Medicine 02/01/21 documented as of this encounter
--- OUTSIDE RECORDS SUMMARY | 2024-02-24 19:40 | XMS_ITS | Encounter Summary ---
Author Organization [facility] Address [facility] [place] [address] Care Team Providers Care Agriculture Technician Name Role Phone Ruben Gillette MD Primary Care Provider + Reason for Visit * Reason Onset Date Comments Medication Refill 02/02/2018 Encounter Details Date Type Department Care Team (Late st Contact Info) Description 02/02/2018 Refill Cardiology at [address] [address] Myra Cobb, FELLMONGERY WORKER [facility] [place] [address] Medication Refill Social History Tobacco Use Types [...] Primary documented in this encounter Care Teams Agriculture Technician Relationship Specialty Start Date End Date Ruben Gillette MD [facility] [place] [address] PCP - General General Internal Medicine 01/11/1810/20 documented as of this encounter
--- OUTSIDE RECORDS SUMMARY | 2024-02-24 19:40 | XMS_ITS | Encounter Summary ---
Author Organization [facility] Address [facility] [place] [address] Care Team Providers Care Offshore Wind Turbine Technician Name Role Phone None Primary Care Provider Unavailabl e Encounter Details Date Type Department Care Team (Late st Contact Info) Description 11/02/2018 Telephone Internal Medicine at [facility] [address] [place] [phone] Myra Clark Social History Tobacco Use Types [...] on filedocumented in this encounter Care Teams Offshore Wind Turbine Technician Relationship Specialty Start Date End Date None None PCP - General 11/02/18 01/31/21 documented as of this encounter
--- OUTSIDE RECORDS SUMMARY | 2024-02-24 19:40 | XMS_ITS | Encounter Summary ---
[place] [address] Care Team Providers Care Procurement Inspector Name Role Phone Dean Camilo Primary Care Provider Encounter Details Date Type Department Care Team (Late st Contact Info) Description 03/07/2021 [place] [phone] Kaleigh Sahni LPN Social History Tobacco Use [...] 03/07/2021 2:40 PM EDT Phone call from [place] medicaid ride share. They need a letter of medical necessity faxed to [place] Medicaid for patient to get a ride for her appointment tomorrow. Letter written and faxed to [phone]. Kaleigh Sahni LPN documented in this encounter Plan of Treatment Not on file documented as of this encounter Visit Diagnoses Not on filedocumented in this encounter Care Teams Procurement Inspector Relationship Specialty Start Date End Date Dean Camilo PA [address] [place] [address] PCP - General Internal Medicine 02/01/21 documented as of this encounter
--- OUTSIDE RECORDS SUMMARY | 2024-02-24 19:40 | XMS_ITS | Encounter Summary ---
Author Organization [place] [address] Care Team Providers Care Director Of Graduate Medical Education Name Role Phone Bruna Cardenas APRN Primary Care Provider Encounter Details Date Type Department Care Team (Late st Contact Info) Description 01/07/2018 [place] [address] Sunshine Rea MD [facility] [place] [address] Social History Tobacco Use Types Packs/Day Years [...] 8:20pm Referring Provider: Dr. Rascon Patient Location: [facility] Presenting Symptoms per OSH: 67 year old woman with a history of SVT, atrial fibrillation/flutter (on metoprolol and diltiazem usually, eliquis; last took meds 12pm 01/07), DM who presented with symptomatic bradycardia. 2 hours MEDICAL ENGINEER developed dizziness, feeling unwell, chest discomfort (ache, [...] OSH is without ICU level bed availability. [facility] on level 1. Recommend transfer to [place] for further monitoring. Sunshine Rea MD Tile Power Shear Operator documented in this encounter Plan of Treatment Not on file documented as of this encounter Visit Diagnoses Not on filedocumented in this encounter Care Teams Director Of Graduate Medical Education Relationship Specialty Start Date End Date Bruna Cardenas APRN PCP - General Family Medicine 12/20/17 01/10/18 documented as of this encounter
--- OUTSIDE RECORDS SUMMARY | 2024-02-24 19:40 | XMS_ITS | Encounter Summary ---
[place] [address] Care Team Providers Care Photography Intern Name Role Phone Dean Camilo Primary Care Provider Encounter Details Date Type Department Care Team (Late st Contact Info) Description 07/31/2021 2:05 AM EST Ancillary Procedure [place] [address] Sunil Cuba MD [facility] [place] [address] Social History Tobacco Use Types Packs/Day Years [...] MD IM FILM LIBRARY ORD ERABLES ARLEEN [place], [place] documented in this encounter Visit Diagnoses Not on filedocumented in this encounter Care Teams Photography Intern Relationship Specialty Start Date End Date Dean Camilo PA [address] [place] [address] PCP - General Internal Medicine 02/01/21 documented as of this encounter
--- OUTSIDE RECORDS SUMMARY | 2024-02-24 19:40 | XMS_ITS | Encounter Summary ---
[place] [address] Care Team Providers Care Boom Stick Worker Name Role Phone Ruben Gillette MD Primary Care Provider + Reason for Visit * Reason Onset Date Comments Other 02/02/2018 Encounter Details Date Type Department Care Team ([facility] st Contact Info) Description 02/02/2018 Telephone [place] [address] Lora Beaulieu Other Social History Tobacco Use [...] questions or concerns. * Telephone Encounter - vAis Kline RN - 02/02/2018 10:41 AM EDT Message forwarded to nurse Linsey 2N. * Telephone Encounter - Lora Beaulieu - 02/02/2018 7:50 AM EDT Message: pt calling, requesting someone call [facility] to give permission for her transportation to her appt on 02/04. States she spoke with them yesterday and they asked someone from this office call them at [phone] Caller and relationship (if other than patient-full name): self Best time to call back: any Ok to leave a message: [y] Ok to send my- message: [] Offered Appointment: MA/Nurse contacted via: Message: y Call: n Pager: n documented in this encounter Plan of Treatment Not on file documented as of this encounter Visit Diagnoses Not on filedocumented in this encounter Care Teams Boom Stick Worker Relationship Specialty Start Date End Date Ruben Gillette MD [facility] [place] [address] PCP - General General Internal Medicine 01/11/1810/20 documented as of this encounter
--- OUTSIDE RECORDS SUMMARY | 2024-02-24 19:40 | XMS_ITS | Encounter Summary ---
Author Organization [facility] Address [facility] [place] [address] Care Team Providers Care Cullet Crusher Name Role Phone Dean Camilo Primary Care Provider [phone] Reason for Referral * Consultation (Routine) - Closed Specialty Diagnoses / Procedures Referred By Rommel bhat Referred To Contact Wound Care Diagnoses Type 2 diabetes mellitus with hyperglycemia, with long-term current use of insulin Skin ulcer of toe of right foot, limited to breakdown of skin Roni Vargas MD [facility] [place] [address] [facility] [place] [address] Referral ID Status Reason Start Date Expiration Date V isits Requested Visits Authorized [id number] Closed Consult, Test & Treat 02/07/2021 02/07/2022 1 1 Encounter Details Date Type Department Care Team (Latest Contact Info) Description 02/07/2021 10:00 AM EDT TH Visit (TeleHealth) [place] [address] Roni Vargas MD [facility] [place] [address] Type 2 diabetes mellitus with hyperglycemia, with [...] review diabetes care as part of the [facility] Diabetes Outreach Program: Preliminary material: From Court [place]rea: Pt lives with her Niece, Alicia. Alicia moved in with Hope 6 years ago. At that time Hope had stage 3 ulcer that took 4 months to heal. 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 Mental Health: did not ask Dental: no teeth, has dentures, they do not fit so she does not wear them. they hurt her mouth and tear her gums. Dr. Gregory made them and is now retired. Pt is willing to see a new dental provider; she suggests [facility]. Court will help facilitate a visit. Feet: states she would like to see a material control manager for ingrown toenails. She can feel feet, [...] proper footwear. I will refer her to [facility] podiatry to get a consultation for a footwear prescription. Recommend trulicity 0.75 go to 1.5 Change metformin to ER or XL Metformin 500 bid Reduce tresiba 10 % [employer] Dates for 2020 ___ consultation with primary care physician practice- 3 x a year ___ consultation with endocrinology/exhibit specialist- 1-2 times a year ___ consultation with dice table operator 2 times per year ___ consultation with [...] skin documented in this encounter Care Teams Cullet Crusher Relationship Specialty Start Date End Date Dean Camilo PA [address] [place] [address] PCP - General Internal Medicine 02/01/21 documented as of this encounter
--- OUTSIDE RECORDS SUMMARY | 2024-02-24 19:40 | XMS_ITS | Encounter Summary ---
Author Organization [facility] [place] [address] Care Team Providers Care Graphic Pre Press Trades Worker Name Role Phone Bruna Cardenas APRN Primary Care Provider [phone] Encounter Details Date Type Department Care Team ([facility] st Contact Info) Description 01/07/2018 External Results [place] [address] Perry Greene MD [address] [place] [address] Social History Tobacco Use Types Packs/Day Years [...] on filedocumented in this encounter Care Teams Graphic Pre Press Trades Worker Relationship Specialty Start Date End Date Bruna Cardenas APRN PCP - General Family Medicine 12/20/17 01/10/18 documented as of this encounter
--- OUTSIDE RECORDS SUMMARY | 2024-02-24 19:40 | XMS_ITS | Encounter Summary ---
Author Organization [facility] [place] [address] Care Team Providers Care Skin Lap Bonder Name Role Phone Ruben Gillette MD Primary Care Provider + Encounter Details Date Type Department Care Team (Late st Contact Info) Description 01/14/2018 Telephone Cardiology at [address] [phone] Mandy Peterson, RN Social History Tobacco Use [...] Peterson, RN - 01/14/2018 1:41 PM EDT [facility] nurse calling on behalf of [...] nurse will visit pt tomorrow and call [facility] w/ update. Spoke with KRIS Cleveland (cell [phone]). If any issues/orders arise triage nurse for [facility] can be called at [phone]. documented in this encounter Plan of Treatment Not on file documented as of this encounter Visit Diagnoses Not on filedocumented in this encounter Care Teams Skin Lap Bonder Relationship Specialty Start Date End Date Ruben Gillette MD [facility] [place] [address] PCP - General General Internal Medicine 01/11/1810/20 documented as of this encounter
--- OUTSIDE RECORDS SUMMARY | 2024-02-24 19:40 | XMS_ITS | Encounter Summary ---
Author Organization [facility] Address [facility] [place] [address] Care Team Providers Care Fitter / Welder Name Role Phone Dean Camilo Primary Care Provider Reason for Visit * Reason Comments Medication Refill Encounter Details Date Type Department Care Team (Late st Contact Info) Description 01/11/2019 Refill Cardiology at [address] [phone] Myra Cobb APRN [facility] [place] [address] Medication Refill Social History Tobacco Use Types [...] on filedocumented in this encounter Care Teams Fitter / Welder Relationship Specialty Start Date End Date Dean Camilo PA Kirti PRINCE [address] [place] [phone] PCP - General Internal Medicine 02/01/21 documented as of this encounter
--- OUTSIDE RECORDS SUMMARY | 2024-02-24 19:40 | XMS_ITS | Encounter Summary ---
Author Organization [facility] [place] [address] Care Team Providers Care Tank Setter Helper Name Role Phone Dean Camilo Primary Care Provider Reason for Visit * Reason Comments Medication Refill Encounter Details Date Type Department Care Team (Late st Contact Info) Description 10/21/2014 Refill Cardiology at [address] [phone] [facility] [place] [address] Medication Refill Social History Tobacco Use Types [...] filedocumented in this encounter Care Teams Tank Setter Helper Relationship Specialty Start Date End Date Dean Camilo PA [address] [place] [id number] PCP - General Internal Medicine 02/01/21 documented as of this encounter
--- OUTSIDE RECORDS SUMMARY | 2024-02-24 19:40 | XMS_ITS | Encounter Summary ---
Author Organization [facility] [place] [address] Care Team Providers Care Lens Block Gauger Name Role Phone Dean Camilo Primary Care Provider [phone] Encounter Details Date Type Department Care Team (Late st Contact Info) Description 07/31/2021 [place] [address] Karley Cuba MD [facility] [place] [address] Social History Tobacco Use Types Packs/Day Years [...] on filedocumented in this encounter Care Teams Lens Block Gauger Relationship Specialty Start Date End Date Dean Camilo PA [address] [place] [address] PCP - General Internal Medicine 02/01/21 documented as of this encounter
--- OUTSIDE RECORDS SUMMARY | 2024-02-24 19:40 | XMS_ITS | Encounter Summary ---
[place] [address] Care Team Providers Care Automation And Controls Instructor Name Role Phone Dean Camilo Primary Care Provider [phone] Encounter Details Date Type Department Care Team (Late st Contact Info) Description 11/04/2023 External [place] [phone] Social History Tobacco Use Types Packs/Day Years Used Date Smoking Tobacco: Former Cigarettes Q uit: 06/22/1979 Smokeless Tobacco: Never Comments:per phone call 01/02 Alcohol Use Standard Drinks/Week Comments Yes 0 (1 standard drink = 0.6 oz pur e alcohol) 1 drink every 3-4 months [facility] Utilities Answer Date Recorded In the past 12 months has e [employer], gas, oil, or water [employer] threatened to shut off services in your [...] place to sleep or slept in a chcf (including now)? No 11/05/2023 [facility] IPV Inpatient [...] documented as of this encounter Care Teams Automation And Controls Instructor Relationship Specialty Start Date End Date Dean Camilo PA [address] [place] [address] PCP - General Internal Medicine 02/01/21 documented as of this encounter
--- OUTSIDE RECORDS SUMMARY | 2024-02-24 19:40 | XMS_ITS | Encounter Summary ---
Author Organization [facility] [place] [place] [address] Care Team Providers Care Audio Technician Name Role Phone Ruben Gillette MD Primary Care Provider + Reason for Visit * Reason Onset Date Comments VNA Calls 01/21/2018 Encounter Details Date Type Department Care Team ([facility] Contact Info) Description 01/21/2018 Telephone Internal Medicine at [facility] [address] [place] [address] Charity Landa VNA Calls Social [...] of person calling: Lilibeth Call back number: [phone] ext [phone] Reason for call: calling stating patient has been doing great and completely normal every visit. They are wondering if she can be discharged from [facility] Nurse Contacted via: Message: y Call: n Pager: n documented in this encounter Plan of Treatment Not on file documented as of this encounter Visit Diagnoses Not on filedocumented in this encounter Care Teams Audio Technician Relationship Specialty Start Date End Date Ruben Gillette MD [facility] [place] [address] PCP - General General Internal Medicine 01/11/1810/20 documented as of this encounter
--- OUTSIDE RECORDS SUMMARY | 2024-02-24 19:40 | XMS_ITS | Encounter Summary ---
Author Organization [facility] Address [facility] [place] [address] Care Team Providers Care Leather Cutter Name Role Phone Ruben Gillette MD Primary Care Provider + Encounter Details Date Type Department Care Team ([facility] st Contact Info) Description 02/01/2018 Abstract Internal Medicine at [facility] [address] [place] [address] Rosalinda Martino, [facility] Social History Tobacco Use Types Packs/Day Years [...] filedocumented in this encounter Care Teams Leather Cutter Relationship Specialty Start Date End Date Ruben Gillette MD [facility] [place] [address] PCP - General General Internal Medicine 01/11/1810/20 documented as of this encounter
--- OUTSIDE RECORDS SUMMARY | 2024-02-24 19:40 | XMS_ITS | Encounter Summary ---
[place] [address] Care Team Providers Care Peoplesoft Hcm Consultant Name Role Phone Ruben Gillette MD Primary Care Provider + Reason for Referral * Diagnostic Test (Routine) - Closed Specialty Diagnoses / Procedures Referred By Rommel bhat Referred To Contact Diagnoses Symptomatic bradycardia Procedures Myra Fournier APRN [facility] [place] [address] Referral ID Status Reason Start Date Expiration Date V isits Requested Visits Authorized [id number] Closed Specialty Service Requested 01/11/2018 01/11/2019 1 1 Reason for Visit * Auth/Cert Specialty Diagnoses / Procedures Referred By Rommel bhat Referred To Contact Diagnoses Symptomatic bradycardia BRADYCARDIA HYPOTENSION Referral ID Status Reason Start Date Expiration Date Visits Re quested Visits Authorized [id number] 1 1 Encounter Details Date Type Department Care Team (Latest Contact Info) Description 01/11/2018 2:30 PM EDT - 01/11/2018 11:59 PM EDT Hospital Encounter Non[place] [address] Symptomatic bradycardia Discharge Disposition: Home Social History [...] collection. ____ Interpreted by Ibrahima Miller MD, [facility] Myra Cobb APRN CARDIAC SERVICES ORD ERABLES documented in this encounter Visit Diagnoses Diagnosis Symptomatic bradycardia Other specified cardiac dysrhythmias documented in this encounter Care Teams Peoplesoft Hcm Consultant Relationship Specialty Start Date End Date Ruben Gillette MD [facility] [place] [address] PCP - General General Internal Medicine 01/11/1810/20 documented as of this encounter
--- OUTSIDE RECORDS SUMMARY | 2024-02-24 19:40 | XMS_ITS | Encounter Summary ---
[place] [address] Care Team Providers Care Therapy Director Name Role Phone Dean Camilo Primary Care Provider Encounter Details Date Type Department Care Team (Late st Contact Info) Description 02/28/2021 1:30 PM EDT Tech [place] [address] [place], [place] Diabetic ulcer of toe of right [...] Text Report Department: Vascular Surgery Lab Patient: [id number] (DHAVAL YEE) CPT: 27981 ICD10: L97.512;E11.621 Referring Physician: NANCY JEFFRIES ?? [...] 02/28/2021 12:5 1 PM EDT Nancy Jeffries PSYCH THERAPIST VASCULAR ORDERABL ES VASCUBASE documented in this encounter Visit Diagnoses Diagnosis Diabetic ulcer of toe of right foot associated with type 2 diabetes mellitus, with fat layer exposed documented in this encounter Care Teams Therapy Director Relationship Specialty Start Date End Date Dean Camilo PA [address] [place] [address] PCP - General Internal Medicine 02/01/21 documented as of this encounter
--- OUTSIDE RECORDS SUMMARY | 2024-02-24 19:40 | XMS_ITS | Encounter Summary ---
Author Organization [facility] Address [facility] [place] [address] Care Team Providers Care Manager Field Name Role Phone Dean Camilo Primary Care Provider [phone] Reason for Visit * Reason Comments Medication Refill Encounter Details Date Type Department Care Team (Late st Contact Info) Description 01/17/2019 Refill Cardiology at [address] [address] Myra Cobb APRN [facility] [place] [address] Medication Refill Social History Tobacco Use Types [...] on filedocumented in this encounter Care Teams Manager Field Relationship Specialty Start Date End Date Dean Camilo PA Kirt[address] [place] [phone] PCP - General Internal Medicine 02/01/21 documented as of this encounter
--- OUTSIDE RECORDS SUMMARY | 2024-02-24 19:40 | XMS_ITS | Encounter Summary ---
[place] [address] Care Team Providers Care Sand Shoveler Name Role Phone Ruben Gillette MD Primary Care Provider + Reason for Referral * Diagnostic Test (Routine) - Closed Specialty Diagnoses / Procedures Referred By Rommel bhat Referred To Contact Diagnoses Symptomatic bradycardia Procedures Myra Fournier CHILD SUPPORT OFFICER [facility] [place] [address] Referral ID Status Reason Start Date Expiration Date V isits Requested Visits Authorized [id number] Closed Specialty Service Requested 01/11/2018 01/11/2019 1 1 * Consultation (Routine) - Closed Specialty Diagnoses / Procedures Referred By Rommel bhat Referred To Contact Internal Medicine Diagnoses Symptomatic bradycardia Myra Cobb [facility] [place] [address] [address] Referral ID Status Reason Start Date Expiration Date V isits Requested Visits Authorized [id number] Closed Consult, Test & Treat 01/11/2018 01/11/2019 1 1 Reason for Visit * Auth/Cert Specialty Diagnoses / Procedures Referred By Contac t Referred To Contact Diagnoses Symptomatic bradycardia BRADYCARDIA HYPOTENSION Referral ID Status Reason Start Date Expiration Date Visits Re quested Visits Authorized [id number] 1 1 Encounter Details Date Type Department Care Team (Latest Contact Info) Description 01/08/2018 12:22 AM EDT - 01/11/2018 2:40 PM EDT Hospital Encounter [place] [address] Rafat Jerome MD [facility] [place] [address] Satnam Brady MD [facility] [place] [address] Symptomatic bradycardia Discharge Disposition: Home Social History [...] Hope Busby Patient Age: 67 y.o. Language: Guyanese Race: White Ethnicity: Not nor Admit date: [...] zio-patch Inpatient Provider Contact Information: Myra Crook, CHILD SUPPORT OFFICER Discharge Diagnoses (Hospital Problems) and Secondary Diagnoses [...] SVT, DM-2,HTN,HLD and Obesity got transferred from [facility] ([facility]) forsyncope and symptomatic bradycardia.She was [...] by EMS on site. On arrival to [facility] ER ,she denies having any dizziness [...] any episodEs of bradycardia.She was hospitalized to [facility] in last year for an episode of A fib with RVR and her dose of metoprolol was increased from 50mg to 100mg daily. ?? Labs and Medications from [facility]; ?? Labs; Wbc; 10.66 Hg; [...] with a history of persistent atrial fibrillation ([id number] 4, on Xarelto), SVT , diabetes type 2, hypertension, hyperlipidemia and obesity who was transferred from [facility] for presyncope/syncope and symptomatic bradycardia. Ms. Busby was admitted to [facility] overnight after being transferred from [facility]. She has a history of [...] improvement in heart rate. [facility] diltiazem was reduced to 30mg [...] symptomatic bradycardia persists. ? Persistent A fib [id number] 4, on xarelto which was held during [...] appointments: During 8am-5pm Thursday through Thursday call [phone] to speak with a nurse in the cardiology clinic All other times call [phone] and ask to speak to the physician asst systems applications programming lead. Return to work: One week Driving: Ok to resume if previously driving Follow up Appointments: PCP -- Dr. Gillette ([facility]) -- Your follow up appointment is scheduled for Januaryat 3:15 Cardiology -- Dr Brady Your follow up appointment is scheduled for January at 3:20 pm Home oxygen therapy: N/A Arrangements for VNA/home care: see orders Future Appointments and Orders Future Appointments Provider Department Dept Phone 02/04/2018 3:30 PM Ruben Gillette MD Primary Care at [facility] [phone] 02/09/2018 3:20 PM Satnam Brady MD Cardiology at [facility] [phone] Future Orders Complete By [place] [CAR40 Custom] 01/11/2018 (Approximate) 07/13/2018 Process Instructions: Scheduling Instructions: Questions: Does the patient have a pacemaker? If yes provide HI/LO settings: Which location will this be performed?: [facility] Referral to General Internal Medicine [REF40 Custom] As directed Process Instructions: If no progress note charted, please enter Clinical details in comments. Scheduling Instructions: Questions: My question or request is: patient would like to establish with PCP Referral to Home Health - at DISCHARGE [[id number] CPT(R)] As directed Process Instructions: Scheduling Instructions: Comments: DOCUMENTATION FOR VNA SERVICES (INCLUDING THOSE PATIENTS WITH MEDICARE COVERAGE REQUIRING HOME VNA SERVICES AND/OR HOSPICE SERVICES) PATIENT'S LOCATION: [facility] [address] [place] [id number] (home) Staff Consultant's Name: self In discussion with the attending physician, it is certified that this patient is under their care and that they, or a Nurse Practitioner,Clinical Nurse specialist or Physician Title Abstractor who is working directly with them, had [...] re health issues HOME HEALTH CARE AGENCY: [facility]. PHONE: [phone] FAX: [phone] Start of care:in 48 hrs of d/c [...] from this patient's PCP: Ruben Gillette MD [facility] GENERAL INTERNAL MEDICINE / NEGIN N* [phone] All VNA agencies which cover the area of patient's residence have been reviewed, either verbally christine writing, and patient/family have chosen the home health care agency noted Questions: Agency name and contact information: [place] Patient location post discharge: own home What services are requested: Registered Nurse Start date: Responsible MD post discharge contact info: PCP and [facility] Cardiology Service Discharge References/Attachments None Myra Crook [...] appointments: During 8am-5pm Thursday through Thursday call [phone] to speak with a nurse in the cardiology clinic All other times call [phone] and ask to speak to the physician asst systems applications programming lead. Return to work: One week Driving: Ok to resume if previously driving Follow up Appointments: PCP -- Dr. Gillette ([facility]) -- Your follow up appointment is [...] 01/11/2018 2:21 PM EDT Office of Care Management(OCM)/Studio Set Up Worker(CM)/Discharge Planning Service: Cardiology S1 Pager # [phone] RONNIE ShipleyRN,BSN,MA,[facility] pgr [phone] Referral from [employer] and SCIENTIFIC DIVER that pt would benefit from home RN services as she is on new medication regimen, lives alone and is continuing recovery from hospitalization from syncopal episode. Met w pt to discuss recommendation for home RN services f/u post hospitalization. She agreed and requests the agency she has had in the past and is aware of the homebound expectation. [facility] PHONE: [phone] FAX: [phone] Orders pended for home RN services and info to be made available via [employer] by [facility] Resource Specialists for:above agency. * Andi Encinas MSW - 01/11/2018 1:01 PM EDT SCIENTIFIC DIVER arranging hospital DC ride with [facility] [phone] ([place] medicaid)R...they will call back with time/taxi cab driver info * Myra Crook APRN - 01/11/2018 10:25 AM EDT Images from the original note were not included. Inpatient Cardiology Progress Note Patient Name: Hope Busby Service: [employer] MECH[employer]IC / PA Responsible Attending: Satnam Brady MD [...] with a history of persistent atrial fibrillation (NFH2FV5-[id number] 4, on Xarelto), SVT , diabetes type 2, hypertension, hyperlipidemia and obesity who was transferred from [facility] for presyncope/syncope and symptomatic bradycardia. Her [...] by EMS on site. On arrival to [facility] ER ,she denies having any [...] with a ride home up north of [facility] and will also need a Ziopatch at discharge. ?? Symptomatic bradycardia with presyncope/syncope Tele: persistent AF, resting rates improving, exertion rates 120'-130's, rare dropped beats, no bradycardia overnight Adjust meds: Metoprolol 50 mg BID and increase diltiazem to goal of 180mg daily (start long acting on 01/10) Ziopatch at discharge F/u with cardiology as outpatient- she wishes to return to [facility] for her PCP/Cardiology care Neuro to consult, no suspicion of CVA or need for further workup at this time ?? Chest discomfort - NOS Troponin negative ECG without ischemic changes Symptom related to presyncopal episode, none since Continue ASA, statin, ACEi, BB ?? 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 DM II Hold [...] More than 30 minutes were spent in smoe-qj-zofh contact with patient and with arranging discharge and coordinating follow-up. 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 Her [...] by EMS on site. On arrival to [facility] ER ,she denies having any [...] with a ride home up north of [facility] and will also need a Ziopatch at discharge. ?? Symptomatic bradycardia with presyncope/syncope Tele: persistent AF, resting rates improving, exertion rates 120'-130's, rare dropped beats, no bradycardia overnight Adjust meds: Metoprolol 50 mg BID and increase diltiazem to goal of 180mg daily (start long acting on 01/10) Ziopatch at discharge F/u with cardiology as outpatient- she wishes to return to [facility] for her PCP/Cardiology care Neuro to consult, no suspicion of CVA or need for further workup at this time ?? Chest discomfort - NOS Troponin negative ECG without ischemic changes Symptom related to presyncopal episode, none since Continue ASA, statin, ACEi, BB ?? 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 Her [...] by EMS on site. On arrival to [facility] ER ,she denies having any [...] statin, ACEi, BB ?? 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 Symptomatic bradycardia ??? Syncope ??? Diabetes mellitus ??? Morbid obesity ??? Atrial fibrillation Resolved Hospital Problems Diagnosis Date Resolved No resolved problems to display. Interval History: Admitted overnight from [facility] in the setting of tachybradycardia [...] with a history of persistent atrial fibrillation (PLF2BM3-FCXe 4, on Xarelto), SVT , diabetes type 2, hypertension, hyperlipidemia and obesity who was transferred from [facility] for presyncope/syncope and symptomatic bradycardia. Ms. Busby was admitted to [facility] overnight after being transferred from [facility]. She has a history of [...] by EMS on site. On arrival to [facility] ER ,she denies having any [...] without ischemic changes ?? Persistent A fib JVV3QF4-EECr 4, on xarelto held at this time transitioned to heparin (now on hold while awaiting repeat head CT) She had multiple episodes of SVT before and diagnosed with A fib in 2014 Reports having a cardioversion and adenosine in the past On Xarelto for anticoagulation with [id number] score of 4. This is likely to [...] 01/08/2018 1:18 AM EDT Pt arrived from [facility] 003 via ambulance. Denied CP [...] SVT, DM-2,HTN,HLD and Obesity got transferred from [facility] ([facility]) forsyncope and symptomatic bradycardia.She was [...] by EMS on site. On arrival to [facility] ER ,she denies having any dizziness [...] any episodEs of bradycardia.She was hospitalized to [facility] in last year for an episode of A fib with RVR and her dose of metoprolol was increased from 50mg to 100mg daily. Labs and Medications from [facility]; Labs; Wbc; 10.66 Hg; 10.9 [...] edema . Pulses palpable, no calf tenderness Neuro/SUPERVISOR BLOOMING MILL: AAO x 3, No evident deficits Skin/Integumentary: [...] SVT, DM-2,HTN,HLD and Obesity got transferred from [facility] ([facility]) for syncope and symptomatic bradycardia.She [...] been taking X arelto for anticoagulation with [id number] score of 4. Her metoprolol and cardizem [...] her next of kin (her ph no; [phone]). Megan Rodriguez MD Provider #: [id number] 01/08/2018 [...] L Elbow flexion 5/5 R, 5/5 L Bargeman LE: 5/5 R, 5/5 L Hip flexion [...] tachybradycardia syndrome. CT head obtained here at [facility] has been reviewed and there is no [...] - PGY-2 Vascular Neurology (Stroke) team pager: [phone] 01/08/18 Standard [facility] Swallow Screen: This screen is to be [...] diet as medical provider deems appropriate. Consider MARINE OPERATIONS COORDINATOR consult for full evaluation and diet recommendations. [...] to Admission: Independent in ADL's Home Environment: mcc housing with elevator Social & Family Supports/Community [...] Elle Pelaez Primary Care Provider: Hoa Jacques, CHILD SUPPORT OFFICER [phone] Patient/Caregiver Goals of Treatment: I want to keep my heart level Potential Needs for Transition of Care: Rehab/SNF: NA Home Health: NA DME: NA Dialysis:NA Community Resources: Available Transportation: RCT Anticipated Barriers to Discharge/Special Considerations: none Assessment: 67 y/o F with h/o Persistent A fib(on metoprolol,cardizem and Xarelto), SVT, DM-2,HTN,HLD and Obesity got transferred from [facility] ([facility]) for syncope and symptomatic bradycardia Plan: Likely home with assistance and follow up A member of the Care Management team will continue to monitor progress, follow for continuity of care and assist with transition of care planning. GERMAN Romero Pager: [phone] documented in this encounter Plan of Treatment [...] Procedure Name Priority Date/Time Associated Diagnosis Comments LACTATION NURSE SCAN 01/12/2018 12:00 AM EDT POCT GLUCOSE [...] POCT GLUCOSE Routine 01/09/2018 7:42 AM EDT LACTATION NURSE SCAN 01/09/2018 12:00 AM EDT POCT GLUCOSE [...] Routine 01/08/2018 9:41 AM EDT CARDIAC ENZYMES ([facility]) Routine 01/08/2018 9:41 AM EDT CBC (WITH DIFF) Routine 01/08/2018 9:41 AM EDT POCT GLUCOSE Routine 01/08/2018 7:56 AM EDT EKG 12-LEAD Routine 01/08/2018 1:33 AM EDT Symptomatic bradycardia BMP W/FASTING GLUCOSE Routine 01/08/2018 1:29 AM EDT HEMOGRAM Routine 01/08/2018 1:29 AM EDT DIFFERENTIAL, AUTOMATED Routine 01/08/2018 1:29 AM EDT CARDIAC ENZYMES ([facility]) Routine 01/08/2018 1:29 AM EDT APTT Routine [...] in this encounter Results * SCAN DOC: LACTATION NURSE (01/12/2018 12:00 AM EDT) Anatomical Region Laterality [...] collection. ____ Interpreted by Ibrahima Miller MD, [facility] Myra Cobb APRN CARDIAC SERVICES ORD ERABLES * (ABNORMAL) POCT Glucose (01/11/2018 11:51 AM EDT) [facility] Glucose, POC 248(H) 65 - 199 mg/dL [facility] Comment: Supplemental ranges: <140 mg/dL before meals <180 mg/dL all other times of the day Blood specimen (specimen) 01/11/2018 11:51 AM EDT 01/11/2018 11:51 AM EDT Satnam Brady MD POINT OF CARE TEST O RDERABLES [facility] [place] [address] * EKG 12 Lead (01/11/2018 11:06 AM EDT) [facility] Ventricular rate 113 BPM MUSE SYSTEM QRS Duration 76 ms MUSE SYSTEM Q-T Interval 324 ms MUSE SYSTEM QTC Calculated (Bezet) 444 ms MUSE SYSTEM Calculated R [place] 9 degrees MUSE SYSTEM Calculated T [place] 6 degrees MUSE SYSTEM INTERPRETATION Atrial fibrillation with rapid ventricular response Low voltage QRS Abnormal ECG When compared with ECG of 08-JAN-2018 01:33, Nonspecific T wave abnormality, worse in Inferior leads Confirmed by fellow MD Pizano Kristy ([id number]) on 01/11/2018 2:47:42 PM Confirmed by José Manuel Jett MD ([id number]) on 01/11/2018 3:46:00 PM MUSE SYSTEM 01/11/2018 11:0 6 AM EDT 01/11/2018 3:46 PM EDT Megan Rodriguez MD ECG ORDERABLES Performing Organization Address [facility]/ZIP Co de Phone Number MUSE SYSTEM * POCT Glucose (01/11/2018 7:24 AM EDT) Glucose, POC 161 65 - 199 mg/dL [facility] Comment: Supplemental ranges: <140 mg/dL before meals <180 mg/dL all other times of the day Blood specimen (specimen) 01/11/2018 7:24 AM EDT 01/11/2018 7:24 AM EDT Satnam Brady MD POINT OF CARE TEST O RDERABLES Performing Organization Address [facility] Co de Phone Number [facility] [place] [address] * BMP w/fasting Glucose (01/11/2018 4:37 AM EDT) Glucose Fasting 91 65 - 99 mg/dL [facility] [...] of Diabetes Mellitus, Position Statement from the [place] [employer]. ??Diabetes Care, Volume 33, Supplement 1, Jun 2009 Blood Urea Nitrogen 15 8 - 18 mg/dL [facility] Creatinine 0.72 0.70 - 1.20 mg/dL [facility] [...] mmol/L [facility] Anion Gap 14 5 - 15 mmol/L [facility] Calcium 9.2 8.5 - 10.5 mg/dL [facility] Est Glomerular Filtration Rate 85 >=60 mL/min/1. 73 m?? [facility] Comment: The eGFR was calculated using the CKD-EPI equation. As with all creatinine based estimates of kidney function, eGFR values calculated with the CKD-EPI equation are not accurate in patients with acute kidney failure, extremes of body mass or the acutely ill. http://[employer]/UnBuyThatnkdep http://[employer]/[facility]SAnkf eGFR 99 >=60 mL/min/1. 73 m?? [facility] Comment: The eGFR was calculated using the CKD-EPI equation. As with all creatinine based estimates of kidney function, eGFR values calculated with the CKD-EPI equation are not accurate in patients with acute kidney failure, extremes of body mass or the acutely ill. http://[employer]/DHnkdep http://[employer]/[facility] TULSAnkf Blood specimen (specimen) 01/11/2018 4:37 AM EDT 01/11/2018 4:55 AM EDT Narrative Resulting Agency Comment Spec In Lab Michelle Torres APRN CHEMISTRY MOE WANG [facility] [place] [address] * (ABNORMAL) Magnesium (01/11/2018 4:37 AM EDT) Magnesium 0.68(L) 0.69 - 1.07 mmol/L [facility] Blood specimen (specimen) 01/11/2018 4:37 AM EDT 01/11/2018 4:55 AM EDT Narrative Resulting Agency Comment Spec In Lab Michelle Torres APRN CHEMISTRY MOE WANG [facility] [place] [address] * POCT Glucose (01/10/2018 8:34 PM EDT) Glucose, POC 176 65 - 199 mg/dL [facility] Comment: Supplemental ranges: <140 mg/dL before meals <180 mg/dL all other times of the day Blood specimen (specimen) 01/10/2018 8:34 PM EDT 01/10/2018 8:34 PM EDT Satnam Brady MD POINT OF CARE TEST O RUBEN Performing Organization Address [facility] Co de Phone Number [facility] [place] [address] * POCT Glucose (01/10/2018 4:37 PM EDT) Glucose, POC 173 65 - 199 mg/dL [facility] Comment: Supplemental ranges: <140 mg/dL before meals <180 mg/dL all other times of the day Blood specimen (specimen) 01/10/2018 4:37 PM EDT 01/10/2018 4:37 PM EDT Satnam Brady MD POINT OF CARE TEST O RUBEN Performing Organization Address [facility]/ZIP Co de Phone Number [facility] [place] [address] * (ABNORMAL) POCT Glucose (01/10/2018 1:49 PM EDT) Glucose, POC 239(H) 65 - 199 mg/dL [facility] Comment: Supplemental ranges: <140 mg/dL before meals <180 mg/dL all other times of the day Blood specimen (specimen) 01/10/2018 1:49 PM EDT 01/10/2018 1:49 PM EDT Satnam Brady MD POINT OF CARE TEST O RDERABLES Performing Organization Address City/[facility] Co de Phone Number [facility] [place] [address] * (ABNORMAL) POCT Glucose (01/10/2018 11:23 AM EDT) Glucose, POC 260(H) 65 - 199 mg/dL [facility] Comment: Supplemental ranges: <140 mg/dL before meals <180 mg/dL all other times of the day Blood specimen (specimen) 01/10/2018 11:23 AM EDT 01/10/2018 11:23 AM EDT Satnam Brady MD POINT OF CARE TEST O RDERICKA Performing Organization Address [facility] Co de Phone Number [facility] [place] [address] * (ABNORMAL) POCT Glucose (01/10/2018 7:10 AM EDT) Glucose, POC 235(H) 65 - 199 mg/dL [facility] Comment: Supplemental ranges: <140 mg/dL before meals <180 mg/dL all other times of the day Blood specimen (specimen) 01/10/2018 7:10 AM EDT 01/10/2018 7:10 AM EDT Satnam Brady MD POINT OF CARE TEST O RDERABLES Performing Organization Address City/[facility] Co de Phone Number [facility] [place] [address] * (ABNORMAL) Differential, Automated (01/10/2018 5:28 AM EDT) Neutrophil % 43.8 % [facility] Neutrophil Absolute 3.45 1.70 - 6.10 x10(3)/[facility] Lymph % 39.8 % [facility] Lymphocytes Abs 3.1 0.9 - 3.2 x10(3)/[facility] Monocyte % 12.5 % [facility] Monocyte Abs 1.0(H) 0.3 - 0.9 x10(3)/[facility] Eos % 2.9 % [facility] Eosinophils Abs 0.2 0.0 - 0.4 x10(3)/[facility] Basophil % 0.6 % [facility] Baso Absolute 0.0 0.0 - 0.1 x10(3)/[facility] Immature Gran % 0.40 % [facility] Comment: Immature granulocytes(IG's)percentage and absolute count will include metamyelocytes, myelocytes, and promyelocytes. Blood smears from CBCs yielding IG's will be scanned manually for concordance. If this scan disagrees with the automated IG or if promyelocytes are noted, a manual differential will be performed. Immature Gran Absolute 0.03 0.00 - 0.04 x10(3)/[facility] Blood specimen (specimen) Venous Draw / Unknown 01/10/2018 5:28 AM EDT 01/10/2018 5:43 AM EDT Narrative Resulting Agency Comment Spec In Lab Satnam Brady MD HEMATOLOGY ORDERABLE S [facility] [place] [address] * (ABNORMAL) Hemogram (01/10/2018 5:28 AM EDT) Pathologist [facility] White Blood Cell 7.9 4.0 - 9.5 x10(3)/[facility] LABORATORY Red Blood Cell 4.54 4.00 - 5.21 x10(6)/mc L [facility] Hemoglobin 11.6(L) 11.7 - 15.5 gm/dL [facility] Hematocrit 37.3 35.7 - 45.8 % [facility] Mean Cell Volume 82.2(L) 82.6 - 94.4 fL [facility] Mean Cell Hemoglobin 25.6(L) 27.1 - 32.0 pg [facility] Mean Cell Hemoglobin Concentration 31.1(L) 31.7 - 35.0 gm/dL [facility] Platelet 371(H) 145 - 357 x10(3)/mc L [facility] RDW Standard Deviation 44.8 37.0 - 46.0 fL [facility] RDW coefficient of variation 15.0(H) 11.5 - 14.1 % [facility] Mean Platelet Volume 10.7 7.6 - 12.9 fL [facility] NRBC% auto 0.0 % [facility] NRBC Absolute 0.000 0.000 - 0.000 x10(3)/mc L [facility] Blood specimen (specimen) Venous Draw / Unknown 01/10/2018 5:28 AM EDT 01/10/2018 5:43 AM EDT Narrative Resulting Agency Comment Spec In Lab Satnam Brady MD HEMATOLOGY ORDERABLE S Performing Organization Address City/State/[facility] Co de Phone Number [facility] [place] [address] * Lavender Tube HOLD (01/10/2018 5:28 AM EDT) Lavender Hold Sample in lab. [facility] Blood specimen (specimen) Venous Draw / Unknown 01/10/2018 5:28 AM EDT 01/10/2018 5:43 AM EDT Michelle Torres APRN HEMATOLOGY ORD ERABLES [facility] [place] [address] * (ABNORMAL) BMP w/fasting Glucose (01/10/2018 5:28 AM EDT) Glucose Fasting 194(H) 65 - 99 mg/dL [facility] [...] of Diabetes Mellitus, Position Statement from the [place] [employer]. ??Diabetes Care, Volume 33, Supplement 1, Jun 2009 Blood Urea Nitrogen 19(H) 8 - 18 mg/dL [facility] Creatinine 0.66(L) 0.70 - 1.20 mg/dL [facility] Sodium 138 135 - 145 mmol/L [facility] Potassium 4.0 3.5 - 5.0 mmol/L [facility] [...] 15 mmol/L [facility] Calcium 9.1 8.5 - 10.5 mg/dL [facility] Est Glomerular Filtration Rate 90 >=60 mL/min/1. 73 m?? [facility] Comment: The eGFR was calculated using the CKD-EPI equation. As with all creatinine based estimates of kidney function, eGFR values calculated with the CKD-EPI equation are not accurate in patients with acute kidney failure, extremes of body mass or the acutely ill. http://Yat[employer] Mobile/UnBuyThatnkdep http://[employer] Mobile/UnBuyThatnkf eGFR 104 >=60 mL/min/1. 73 m?? [facility] Comment: The eGFR was calculated using the CKD-EPI equation. As with all creatinine based estimates of kidney function, eGFR values calculated with the CKD-EPI equation are not accurate in patients with acute kidney failure, extremes of body mass or the acutely ill. http://Y[employer] Mobile/UnBuyThatnkdep http://[employer] Mobile/[facility]ULSAnkf Blood specimen (specimen) 01/10/2018 5:28 AM EDT 01/10/2018 5:43 AM EDT Narrative Resulting Agency Comment Spec In Lab Michelle Torres APRN CHEMISTRY ORDE [employer] [facility] [place] [address] * (ABNORMAL) Magnesium (01/10/2018 5:28 AM EDT) Pathologist [facility] Magnesium 0.62(L) 0.69 - 1.07 mmol/L [facility] Blood specimen (specimen) 01/10/2018 5:28 AM EDT 01/10/2018 5:43 AM EDT Narrative Resulting Agency Comment Spec In Lab Michelle Torres APRN CHEMISTRY ORDE [employer] [facility] [place] [address] * (ABNORMAL) POCT Glucose (01/09/2018 8:29 PM EDT) Glucose, POC 220(H) 65 - 199 mg/dL [facility] Comment: Supplemental ranges: <140 mg/dL before meals <180 mg/dL all other times of the day Blood specimen (specimen) 01/09/2018 8:29 PM EDT 01/09/2018 8:29 PM EDT Satnam Brady MD POINT OF CARE TEST O RDERABLES [facility] [place] [address] * POCT Glucose (01/09/2018 4:36 PM EDT) Glucose, POC 181 65 - 199 mg/dL [facility] Comment: Supplemental ranges: <140 mg/dL before meals <180 mg/dL all other times of the day Blood specimen (specimen) 01/09/2018 4:36 PM EDT 01/09/2018 4:36 PM EDT Satnam Brady MD POINT OF CARE TEST O RDERABLES Performing Organization Address [facility]/ZIP Co de Phone Number [facility] [place] [address] * (ABNORMAL) POCT Glucose (01/09/2018 1:51 PM EDT) Glucose, POC 291(H) 65 - 199 mg/dL [facility] Comment: Supplemental ranges: <140 mg/dL before meals <180 mg/dL all other times of the day Blood specimen (specimen) 01/09/2018 1:51 PM EDT 01/09/2018 1:51 PM EDT Satnam Brady MD POINT OF CARE TEST O RDERABLES [facility] [place] [address] * (ABNORMAL) POCT Glucose (01/09/2018 11:33 AM EDT) Glucose, POC 298(H) 65 - 199 mg/dL [facility] Comment: Supplemental ranges: <140 mg/dL before meals <180 mg/dL all other times of the day Blood specimen (specimen) 01/09/2018 11:33 AM EDT 01/09/2018 11:33 AM EDT Satnam Brady MD POINT OF CARE TEST O RUBEN Performing Organization Address [facility] Co de Phone Number [facility] [place] [address] * (ABNORMAL) POCT Glucose (01/09/2018 10:35 AM EDT) Glucose, POC 329(H) 65 - 199 mg/dL [facility] Comment: Supplemental ranges: <140 mg/dL before meals <180 mg/dL all other times of the day Blood specimen (specimen) 01/09/2018 10:35 AM EDT 01/09/2018 10:35 AM EDT Satnam Brady MD POINT OF CARE TEST O RUBEN Performing Organization Address [facility] de Phone Number [facility] [place] [address] * (ABNORMAL) BMP w/fasting Glucose (01/09/2018 8:47 AM EDT) Glucose Fasting 315(H) 65 - 99 mg/dL [facility] [...] of Diabetes Mellitus, Position Statement from the [place] [employer]. ??Diabetes Care, Volume 33, Supplement [...] questions. Chloride 96(L) 98 - 107 mmol/L [facility] Carbon Dioxide 24 22 - 31 mmol/L [facility] Anion Gap 17(H) 5 - 15 mmol/L [facility] Calcium 8.7 8.5 - 10.5 mg/dL [facility] Est Glomerular Filtration Rate 64 >=60 mL/min/1. 73 m?? [facility] Comment: The eGFR was calculated using the CKD-EPI equation. As with all creatinine based estimates of kidney function, eGFR values calculated with the CKD-EPI equation are not accurate in patients with acute kidney failure, extremes of body mass or the acutely ill. http://[employer] Mobile/UnBuyThatnkdep http://[employer] Mobile/[facility]ULSAnkf eGFR 75 >=60 mL/min/1. 73 m?? [facility] Comment: The eGFR was calculated using the CKD-EPI equation. As with all creatinine based estimates of kidney function, eGFR values calculated with the CKD-EPI equation are not accurate in patients with acute kidney failure, extremes of body mass or the acutely ill. http://[employer] Mobile/DHnkdep http://[employer] Mobile/DHMCnkf Blood specimen (specimen) 01/09/2018 8:47 AM EDT 01/09/2018 9:19 AM EDT Narrative Resulting Agency Comment Spec In Lab Michelle Torres APRN CHEMISTRY MOE WANG [facility] [place] [address] * (ABNORMAL) Magnesium (01/09/2018 8:47 AM EDT) Pathologist [facility] Magnesium 0.65(L) 0.69 - 1.07 mmol/L [facility] Blood specimen (specimen) 01/09/2018 8:47 AM EDT 01/09/2018 9:19 AM EDT Narrative Resulting Agency Comment Spec In Lab Michelle Torres CHILD SUPPORT OFFICER CHEMISTRY ORDE KATHLEEN Performing Organization Address [facility] de Phone Number [facility] [place] [address] * Heparin (unfractionated) Level (01/09/2018 8:47 AM EDT) [facility] UF Heparin 0.78 IU/mL [facility] Comment: Guidelines for therapeutic unfractionated [...] Agency Comment Spec In Lab Myra Cobb CHILD SUPPORT OFFICER HEMATOLOGY ORDERABLE S Performing Organization Address [facility]/ZIP [place] [address] * Differential, Automated (01/09/2018 8:47 AM EDT) Pathologist [facility] Neutrophil % 49.3 % [facility] Neutrophil Absolute 3.72 1.70 - 6.10 x10(3)/[facility] LABORATORY Lymph % 38.4 % [facility] Lymphocytes Abs 2.9 0.9 - 3.2 x10(3)/[facility] LABORATORY Monocyte % 8.3 % [facility] Monocyte Abs 0.6 0.3 - 0.9 x10(3)/[facility] LABORATORY Eos % 3.2 % [facility] Eosinophils Abs 0.2 0.0 - 0.4 x10(3)/[facility] LABORATORY Basophil % 0.7 % [facility] Baso Absolute 0.0 0.0 - 0.1 x10(3)/[facility] Immature Gran % 0.10 % [facility] Comment: Immature granulocytes(IG's)percentage and absolute count will include metamyelocytes, myelocytes, and promyelocytes. Blood smears from CBCs yielding IG's will be scanned manually for concordance. If this scan disagrees with the automated IG or if promyelocytes are noted, a manual differential will be performed. Immature Gran Absolute 0.01 0.00 - 0.04 x10(3)/[facility] LABORATORY Blood specimen (specimen) 01/09/2018 8:47 AM EDT 01/09/2018 9:19 AM EDT Narrative Resulting Agency Comment Spec In Lab Myra Cobb APRN [place] [address] * (ABNORMAL) Hemogram (01/09/2018 8:47 AM EDT) [facility] White Blood Cell 7.6 4.0 - 9.5 x10(3)/[facility] LABORATORY Red Blood Cell 4.92 4.00 - 5.21 x10(6)/[facility] LABORATORY Hemoglobin 12.3 11.7 - 15.5 gm/dL [facility] Hematocrit 40.3 35.7 - 45.8 % [facility] Mean Cell Volume 81.9(L) 82.6 - 94.4 [facility] LABORATORY Mean Cell Hemoglobin 25.0(L) 27.1 - 32.0 pg [facility] Mean Cell Hemoglobin Concentration 30.5(L) 31.7 - 35.0 gm/dL [facility] Platelet 320 145 - 357 x10(3)/[facility] LABORATORY RDW Standard Deviation 44.8 37.0 - 46.0 [facility] LABORATORY RDW coefficient of variation 15.0(H) 11.5 - 14.1 % [facility] Mean Platelet Volume 11.9 7.6 - 12.9 [facility] LABORATORY NRBC% auto 0.0 % [facility] NRBC Absolute 0.000 0.000 - 0.000 x10(3)/[facility] LABORATORY Blood specimen (specimen) 01/09/2018 8:47 AM EDT 01/09/2018 9:19 AM EDT Narrative Resulting Agency Comment Spec In Lab Myra Cobb APRN HEMATOLOGY ORDERABLE S [facility] [place] [address] * (ABNORMAL) POCT Glucose (01/09/2018 7:42 AM EDT) Glucose, POC 292(H) 65 - 199 mg/dL [facility] Comment: Supplemental ranges: <140 mg/dL before meals <180 mg/dL all other times of the day Blood specimen (specimen) 01/09/2018 7:42 AM EDT 01/09/2018 7:42 AM EDT Satnam Brady MD POINT OF CARE TEST O RUBEN Performing Organization Address [facility] Co de Phone Number [facility] [place] [address] * SCAN DOC: LACTATION NURSE (01/09/2018 12:00 AM EDT) Anatomical Region Laterality Modality Other Narrative 01/09/2018 12:00 AM EDT Ordered by an unspecified provider. Scanning Provider MEDIA MGR SCAN EXT O RDR/RSLT * POCT Glucose (01/08/2018 9:00 PM EDT) Pathologist [facility] Glucose, POC 173 65 - 199 mg/dL [facility] Comment: Supplemental ranges: <140 mg/dL before meals <180 mg/dL all other times of the day Blood specimen (specimen) 01/08/2018 9:00 PM EDT 01/08/2018 9:00 PM EDT Satnam Brady MD POINT OF CARE TEST O RUBEN Performing Organization Address [facility] Co de Phone Number [facility] [place] [address] * Heparin (unfractionated) Level (01/08/2018 6:38 PM EDT) UF Heparin 0.46 IU/mL [facility] Comment: Guidelines for therapeutic unfractionated [...] APRN HEMATOLOGY ORDERABLE S Performing Organization Address [facility] Co de Phone Number [facility] [place] [address] * (ABNORMAL) POCT Glucose (01/08/2018 6:05 PM EDT) Glucose, POC 295(H) 65 - 199 mg/dL [facility] Comment: Supplemental ranges: <140 mg/dL before meals <180 mg/dL all other times of the day Blood specimen (specimen) 01/08/2018 6:05 PM EDT 01/08/2018 6:05 PM EDT Satnam Brady MD POINT OF CARE TEST O RDERABLES Performing Organization Address [facility] Phone Number [facility] [place] [address] * (ABNORMAL) POCT Glucose (01/08/2018 4:20 PM EDT) Glucose, POC 288(H) 65 - 199 mg/dL [facility] Comment: Supplemental ranges: <140 mg/dL before meals <180 mg/dL all other times of the day Blood specimen (specimen) 01/08/2018 4:20 PM EDT 01/08/2018 4:20 PM EDT Satnam Brady MD POINT OF CARE TEST O RDERABLES Performing Organization Address [facility] Co de Phone Number [facility] [place] [address] * Cardiac Enzymes (LEB/CGP) (01/08/2018 3:29 PM EDT) [facility] Troponin-T <0.01 0.00 - 0.00 ng/mL [facility] Comment: The 99th percentile for Troponin T is less than 0.01 ng/mL, any detectable cTnT concentration using this assay should be considered elevated. According to the third universal definition of myocardial infarction the following criteria with a clinical presentation consistent with acute myocardial ischemia meets the diagnosis for a myocardial infarction (HI). Detection of a rise and/or fall of cTnT, with at least one value greater than the 99th percentile (> or = 0.01) and with at least one of the following ?? Symptoms of ischemia ?? New or presumed new significant OK-txizoje-W wave (ST-T) changes or new left bundle [...] additional sample may be indicated. Reference: Third Sherborn Definition of Myocardial Infarction. Journal of the [place] College [employer]iology 2012;60:1581-98 Creatine Kinase 101 0 - 160 unit/L [facility] Blood specimen (specimen) 01/08/2018 3:29 PM EDT 01/08/2018 4:00 PM EDT Narrative Resulting Agency Comment Spec In Lab Megan Rodriguez MD CHEMISTRY ORDERABLES [facility] [place] [address] * POCT Glucose (01/08/2018 12:04 PM EDT) [facility] Glucose, POC 133 65 - 199 mg/dL [facility] Comment: Supplemental ranges: <140 mg/dL before meals <180 mg/dL all other times of the day Blood specimen (specimen) 01/08/2018 12:04 PM EDT 01/08/2018 12:04 PM EDT Satnam Brady MD POINT OF CARE TEST O RDERABLES [facility] [place] [address] * CT Head wo Contrast (Generic) (01/08/2018 [...] O ? (Age): 1950(67y) Med Rec#: ? [id number] ?Sex: ?F ? Site Loc: ? DH ?Ht / Wt: ??168(cm)/88(kg) Pt. Loc: ?Adult Floor ? BSA: ?1.98 Study Date: ?? 01/08/2018 ?Pt. Type: Inpatient Tape: ? [facility] Reading: Jorge Alberto Perry ([id number]) Career Development Director: Audie Mir FORREST Diagnosis: *Bradycardia, unspecified (R00.1) CPT Codes: *Echo Full (97590) *Spectral Doppler (39033) *Color Doppler (63501) *Optison ([id number]) Rhythm: ? A-Fib BP: ? 153/99 SUMMARY: [...] ? Mid-Inferior ?Normal ? Mid-Inferoseptal ?Normal ? Mobile-Septal ? Normal ? Mobile-Anterior ? Normal ? Mobile-Lateral ?Normal ? Mobile-Inferior ? Normal ? Mobile-Tip ?Normal ? This report has been electronically signed by: Jorge Alberto Perry M.D. ? 01/08/2018 09:46:49 Images reviewed and interpretation verified [facility] Cardiac Ultrasound Laboratory Procedure Note Jorge Alberto Perry MD - 01/08/2018 Procedure: Transthoracic Echocardiogram Patient: NAKIA SOLOMON(Age): 1950(67y) Med Rec#: [id number] Sex: F [place] Loc: [facility] Ht / Wt: 168(cm)/88(kg) Pt. Loc: Adult Floor BSA: 1.98 Study Date: 01/08/2018 Pt. Type: Inpatient Tape: Referring: [facility]RON Reading: Jorge Alberto Perry ([id number]) Career Development Director: Audie Mir [facility] Diagnosis: *Bradycardia, unspecified (R00.1) CPT Codes: *Echo Full (92044) *Spectral Doppler (95917) *Color Doppler (13270) *Optison ([id number]) Rhythm: A-Fib BP: 153/99 SUMMARY: 1. There [...] Normal Mid-Posterolateral Normal Mid-Inferior Normal Mid-Inferoseptal Normal Mobile-Septal Normal Mobile-Anterior Normal Mobile-Lateral Normal Mobile-Inferior Normal Mobile-Tip Normal This report has been electronically signed by: Jorge Alberto Perry M.D. 01/08/2018 09:46:49 Images reviewed and interpretation verified [facility] Cardiac Ultrasound Laboratory Megan Rodriguez MD ECHO ORDERABLES * Differential, Automated (01/08/2018 9:41 AM EDT) Neutrophil % 60.0 % [facility] Neutrophil Absolute 4.67 1.70 - 6.10 x10(3)/[facility] LABORATORY Lymph % 29.0 % [facility] Lymphocytes Abs 2.2 0.9 - 3.2 x10(3)/[facility] LABORATORY Monocyte % 8.9 % [facility] Monocyte Abs 0.7 0.3 - 0.9 x10(3)/[facility] LABORATORY Eos % 1.2 % [facility] Eosinophils Abs 0.1 0.0 - 0.4 x10(3)/[facility] LABORATORY Basophil % 0.6 % [facility] Baso Absolute 0.0 0.0 - 0.1 x10(3)/[facility] LABORATORY Immature Gran % 0.30 % [facility] Comment: Immature granulocytes(IG's)percentage and absolute count will include metamyelocytes, myelocytes, and promyelocytes. Blood smears from CBCs yielding IG's will be scanned manually for concordance. If this scan disagrees with the automated IG or if promyelocytes are noted, a manual differential will be performed. Immature Gran Absolute 0.02 0.00 - 0.04 x10(3)/[facility] LABORATORY Blood specimen (specimen) 01/08/2018 9:41 AM EDT 01/08/2018 9:56 AM EDT Narrative Resulting Agency Comment Spec In Lab Megan Rodriguez MD HEMATOLOGY ORDERABLE S [facility] [place] [address] * (ABNORMAL) Hemogram (01/08/2018 9:41 AM EDT) White Blood Cell 7.8 4.0 - 9.5 x10(3)/[facility] LABORATORY Red Blood Cell 4.40 4.00 - 5.21 x10(6)/[facility] LABORATORY Hemoglobin 10.8(L) 11.7 - 15.5 gm/dL [facility] Hematocrit 35.6(L) 35.7 - 45.8 % [facility] Mean Cell Volume 80.9(L) 82.6 - 94.4 fL [facility] Mean Cell Hemoglobin 24.5(L) 27.1 - 32.0 pg [facility] Mean Cell Hemoglobin Concentration 30.3(L) 31.7 - 35.0 gm/dL [facility] Platelet 383(H) 145 - 357 x10(3)/[facility] LABORATORY RDW Standard Deviation 44.7 37.0 - 46.0 [facility] LABORATORY RDW coefficient of variation 15.0(H) 11.5 - 14.1 % [facility] Mean Platelet Volume 10.5 7.6 - 12.9 [facility] LABORATORY NRBC% auto 0.0 % [facility] NRBC Absolute 0.000 0.000 - 0.000 x10(3)/[facility] LABORATORY Blood specimen (specimen) 01/08/2018 9:41 AM EDT 01/08/2018 9:56 AM EDT Narrative Resulting Agency Comment Spec In Lab Megan Rodriguez MD HEMATOLOGY ORDERABLE S [facility] [place] [address] * Heparin (unfractionated) Level (01/08/2018 9:41 AM EDT) Pathologist [facility] UF Heparin 0.40 IU/mL [facility] Comment: Guidelines for therapeutic unfractionated [...] Lab Megan Rodriguez MD HEMATOLOGY ORDERABLE S [facility] [place] [address] * Cardiac Enzymes (LEB/CGP) (01/08/2018 9:41 AM EDT) Pathologist [facility] Troponin-T <0.01 0.00 - 0.00 ng/mL [facility] Comment: The 99th percentile for Troponin T is less than 0.01 ng/mL, any detectable cTnT concentration using this assay should be considered elevated. According to the third universal definition of myocardial infarction the following criteria with a clinical presentation consistent with acute myocardial ischemia meets the diagnosis for a myocardial infarction (HI). Detection of a rise and/or fall of cTnT, with at least one value greater than the 99th percentile (> or = 0.01) and with at least one of the following ?? Symptoms of ischemia ?? New or presumed new significant CD-bqmfjtq-D wave (ST-T) changes or new left bundle [...] additional sample may be indicated. Reference: Third Sherborn Definition of Myocardial Infarction. Journal of the [place] [employer] 2012;60:1581-98 Creatine Kinase 112 0 - 160 unit/L [facility] Blood specimen (specimen) 01/08/2018 9:41 AM EDT 01/08/2018 9:56 AM EDT Narrative Resulting Agency Comment Spec In Lab Megan Rodriguez MD CHEMISTRY ORDERABLES Performing Organization Address [facility] Co de Phone Number [facility] [place] [address] * (ABNORMAL) POCT Glucose (01/08/2018 7:56 AM EDT) [facility] Glucose, POC 272(H) 65 - 199 mg/dL [facility] Comment: Supplemental ranges: <140 mg/dL before meals <180 mg/dL all other times of the day Blood specimen (specimen) 01/08/2018 7:56 AM EDT 01/08/2018 7:56 AM EDT Satnam Brady MD POINT OF CARE TEST O RDERABLES Performing Organization Address [facility] Co de Phone Number [facility] [place] [address] * EKG 12 Lead (01/08/2018 1:33 AM EDT) Pathologist [facility] Ventricular rate 96 BPM MUSE SYSTEM Atrial Rate 89 BPM MUSE SYSTEM QRS Duration 74 ms MUSE SYSTEM Q-T Interval 352 ms MUSE SYSTEM QTC Calculated (Bezet) 444 ms MUSE SYSTEM Calculated R [place] 12 degrees MUSE SYSTEM Calculated T [place] 0 degrees MUSE SYSTEM INTERPRETATION Atrial fibrillation [...] Glucose Fasting 241(H) 65 - 99 mg/dL [facility] [...] of Diabetes Mellitus, Position Statement from the [place] [employer]. ??Diabetes Care, Volume 33, Supplement 1, Jun 2009 Blood Urea Nitrogen 16 8 - 18 mg/dL [facility] [...] questions. Chloride 98 98 - 107 mmol/L [facility] Carbon Dioxide 23 22 - 31 mmol/L [facility] Anion Gap 16(H) 5 - 15 mmol/L [facility] Calcium 8.8 8.5 - 10.5 mg/dL [facility] Est Glomerular Filtration Rate 64 >=60 mL/min/1. 73 m?? [facility] Comment: The eGFR was calculated using the CKD-EPI equation. As with all creatinine based estimates of kidney function, eGFR values calculated with the CKD-EPI equation are not accurate in patients with acute kidney failure, extremes of body mass or the acutely ill. http://Y[employer] Mobile/UnBuyThatnkdep http://[employer] Mobile/UnBuyThatnkf eGFR 75 >=60 mL/min/1. 73 m?? [facility] Comment: The eGFR was calculated using the CKD-EPI equation. As with all creatinine based estimates of kidney function, eGFR values calculated with the CKD-EPI equation are not accurate in patients with acute kidney failure, extremes of body mass or the acutely ill. http://Y[employer]/UnBuyThatnkdep [email or web address]://Y[employer] Mobile/[email or web address]kf Blood specimen (specimen) 01/08/2018 1:29 AM EDT 01/08/2018 1:42 AM EDT Narrative Resulting Agency Comment Spec In Lab Megan Rodriguez MD CHEMISTRY ORDERABLES [facility] [place] [address] * Differential, Automated (01/08/2018 1:29 AM EDT) Neutrophil % 66.1 % [facility] Neutrophil Absolute 6.01 1.70 - 6.10 x10(3)/[facility] LABORATORY Lymph % 23.2 % [facility] Lymphocytes Abs 2.1 0.9 - 3.2 x10(3)/[facility] LABORATORY Monocyte % 9.0 % [facility] Monocyte Abs 0.8 0.3 - 0.9 x10(3)/[facility] LABORATORY Eos % 0.7 % [facility] Eosinophils Abs 0.1 0.0 - 0.4 x10(3)/[facility] LABORATORY Basophil % 0.7 % [facility] Baso Absolute 0.1 0.0 - 0.1 x10(3)/[facility] LABORATORY Immature Gran % 0.30 % [facility] Comment: Immature granulocytes(IG's)percentage and absolute count will include metamyelocytes, myelocytes, and promyelocytes. Blood smears from CBCs yielding IG's will be scanned manually for concordance. If this scan disagrees with the automated IG or if promyelocytes are noted, a manual differential will be performed. Immature Gran Absolute 0.03 0.00 - 0.04 x10(3)/[facility] LABORATORY Blood specimen (specimen) 01/08/2018 1:29 AM EDT 01/08/2018 1:42 AM EDT Narrative Resulting Agency Comment Spec In Lab Megan Rodriguez MD HEMATOLOGY ORDERABLE S [facility] [place] [address] * (ABNORMAL) Hemogram (01/08/2018 1:29 AM EDT) White Blood Cell 9.1 4.0 - 9.5 x10(3)/ L [facility] Red Blood Cell 4.22 4.00 - 5.21 x10(6)/mc L [facility] Hemoglobin 10.4(L) 11.7 - 15.5 gm/dL [facility] Hematocrit 34.3(L) 35.7 - 45.8 % [facility] Mean Cell Volume 81.3(L) 82.6 - 94.4 fL [facility] Mean Cell Hemoglobin 24.6(L) 27.1 - 32.0 pg [facility] Mean Cell Hemoglobin Concentration 30.3(L) 31.7 - 35.0 gm/dL [facility] Platelet 391(H) 145 - 357 x10(3)/mc L [facility] RDW Standard Deviation 43.3 37.0 - 46.0 fL [facility] RDW coefficient of variation 14.8(H) 11.5 - 14.1 % [facility] Mean Platelet Volume 10.4 7.6 - 12.9 fL [facility] NRBC% auto 0.0 % [facility] NRBC Absolute 0.000 0.000 - 0.000 x10(3)/mc L [facility] Blood specimen (specimen) 01/08/2018 1:29 AM EDT 01/08/2018 1:42 AM EDT Narrative Resulting Agency Comment Spec In Lab Megan Rodriguez MD HEMATOLOGY ORDERABLE S Performing Organization Address City/[facility]/ZIP Co de Phone Number [facility] [place] [address] * LDL Cholesterol, Direct (01/08/2018 1:29 AM EDT) LDL Cholesterol, Direct 62 mg/dL [facility] Comment: Lowest Risk: <100 mg/dL Lower Risk: 100-129 mg/dL Borderline High Risk: 130-159 mg/dL High Risk: 160-189 mg/dL Very High Risk: >xn=387 mg/dL Blood specimen (specimen) 01/08/2018 1:29 AM EDT 01/08/2018 1:42 AM EDT Narrative Resulting Agency Comment Spec In Lab Megan Rodriguez MD CHEMISTRY ORDERABLES Performing Organization Address City/[facility]/ZIP Co de Phone Number [facility] [place] [address] * (ABNORMAL) Hemoglobin A1c (01/08/2018 1:29 AM EDT) Hemoglobin A1c 10.8(H) 4.3 - 5.6 % [facility] [...] 1, S67-74 Estimated Average Glucose 263 mg/dL [facility] Comment: eAG equivalents for [...] into estimated average glucose values. ??Diabetes Care 2008:31(8):3995-7056. Blood specimen (specimen) 01/08/2018 1:29 AM EDT 01/08/2018 1:42 AM EDT Narrative Resulting Agency Comment Spec In Lab Megan Rodriguez MD CHEMISTRY ORDERABLES [facility] [place] [address] * Cardiac Enzymes (LEB/CGP) (01/08/2018 1:29 AM EDT) Pathologist [facility] Troponin-T <0.01 0.00 - 0.00 ng/mL [facility] Comment: The 99th percentile for Troponin T is less than 0.01 ng/mL, any detectable cTnT concentration using this assay should be considered elevated. According to the third universal definition of myocardial infarction the following criteria with a clinical presentation consistent with acute myocardial ischemia meets the diagnosis for a myocardial infarction (HI). Detection of a rise and/or fall of cTnT, with at least one value greater than the 99th percentile (> or = 0.01) and with at least one of the following ?? Symptoms of ischemia ?? New or presumed new significant RC-bukrjyi-X wave (ST-T) changes or new left bundle [...] additional sample may be indicated. Reference: Third Sherborn Definition of Myocardial Infarction. Journal of the [place] College of [employer]iology 2012;60:1581-98 Creatine Kinase 107 0 - 160 unit/L [facility] Blood specimen (specimen) 01/08/2018 1:29 AM EDT 01/08/2018 1:42 AM EDT Narrative Resulting Agency Comment Spec In Lab Megan Rodriguez MD CHEMISTRY ORDERABLES [facility] [place] [address] * Lipid Panel (01/08/2018 1:29 AM EDT) [facility] Cholesterol, Total 118 mg/dL [facility] Comment: Lower Risk: <200 mg/dL Average Risk: 200-239 mg/dL Higher Risk: >bo=702 mg/dL Triglyceride 51 mg/dL [facility] Comment: Average Risk/Lower Risk: <150 mg/dL Borderline High Risk: 150-199 mg/dL High Risk: 200-499 mg/dL Very High Risk: >ss=766 mg/dL HDL Cholesterol 51 mg/dL [facility] Comment: Males: ?? Higher Risk: <40 mg/dL Females: ?? HIgher Risk: <50 mg/dL LDL Cholesterol 57 mg/dL [facility] Comment: Lowest Risk: <100 mg/dL Lower Risk: 100-129 mg/dL Borderline High Risk: 130-159 mg/dL High Risk: 160-189 mg/dL Very High Risk: >lj=989 mg/dL Cholesterol/HDL Ratio 2.3 ratio [facility] Lipid Interpretation See Note [facility] Comment: Lipid management should be guided by a patient? s ASCVD risk, goals and preferences. ACC/AHA Guidelines recommend high intensity statin if clinical ASCVD or LDL greater than or equal to 190 mg/dL. http://Fluid.com/LJZ-LSH-Myzsxucbg Adults aged 40-75 with LDL 70-189 mg/dL should have their 10 year ASCVD risk estimated with the ACC/AHA ASCVD risk automobile repair service estimator http://tools.acc.org/KCVJF-Xuco-Xrpicqedc/ Statin should be discussed if risk greater [...] In Lab Megan Rodriguez MD CHEMISTRY ORDERABLES [facility] [place] [address] * APTT (01/08/2018 1:29 AM EDT) Partial Thromboplastin Time 31 25 - 37 sec [facility] [...] MD HEMATOLOGY ORDERABLE S Performing Organization Address [facility] Co de Phone Number [facility] [place] [address] * (ABNORMAL) Prothrombin Time (01/08/2018 1:29 AM EDT) Prothrombin Time 13.1(H) 9.4 - 12.5 sec [facility] International Normalization Ratio 1.2 [facility] Comment: An INR [...] MD HEMATOLOGY ORDERABLE S Performing Organization Address [facility] Co de Phone Number [facility] [place] [address] * Hepatic Function Panel (01/08/2018 1:29 AM EDT) Protein, Total 6.9 6.1 - 8.0 gm/dL [facility] Albumin 3.6 3.2 - 5.2 gm/dL [facility] Aspartate Aminotransferase 11 0 - 30 unit/L [facility] Alanine Aminotransferase 13 0 - 30 unit/L [facility] Alkaline Phosphatase 48 40 - 104 unit/L [facility] Bilirubin, Total 0.2 0.2 - 1.3 mg/dL [facility] Bilirubin, Direct 0.1 0.0 - 0.3 mg/dL [facility] Blood specimen (specimen) 01/08/2018 1:29 AM EDT 01/08/2018 1:42 AM EDT Narrative Resulting Agency Comment Spec In Lab Megan Rodriguez MD CHEMISTRY ORDERABLES [facility] [place] [address] * (ABNORMAL) pro-Brain Natriuretic Peptide (01/08/2018 1:29 AM EDT) NT-proBNP 609(H) <=125 pg/mL [facility] Blood specimen (specimen) 01/08/2018 1:29 AM EDT 01/08/2018 1:42 AM EDT Narrative Resulting Agency Comment Spec In Lab Megan Rodriguez MD CHEMISTRY ORDERABLES Performing Organization Address City/[facility]/ZIP Co de Phone Number [facility] [place] [address] * TSH (01/08/2018 1:29 AM EDT) Thyroid Stimulating Hormone 1.37 0.27 - 4.20 mlU/ML [facility] Blood specimen (specimen) 01/08/2018 1:29 AM EDT 01/08/2018 1:42 AM EDT Narrative Resulting Agency Comment Spec In Lab Megan Rodriguez MD CHEMISTRY ORDERABLES [facility] [place] [address] * Phosphorus (01/08/2018 1:29 AM EDT) Phosphorus 3.9 2.5 - 4.5 mg/dL [facility] Blood specimen (specimen) 01/08/2018 1:29 AM EDT 01/08/2018 1:42 AM EDT Narrative Resulting Agency Comment Spec In Lab Megan Rodriguez MD CHEMISTRY ORDERABLES Performing Organization Address [facility] Co de Phone Number [facility] [place] [address] * (ABNORMAL) Magnesium (01/08/2018 1:29 AM EDT) Magnesium 0.67(L) 0.69 - 1.07 mmol/L [facility] Blood specimen (specimen) 01/08/2018 1:29 AM EDT 01/08/2018 1:42 AM EDT Narrative Resulting Agency Comment Spec In Lab Megan Rodriguez MD CHEMISTRY ORDERABLES Performing Organization Address [facility] de Phone Number [facility] [place] [address] * (ABNORMAL) POCT Glucose (01/08/2018 1:28 AM EDT) Glucose, POC 234(H) 65 - 199 mg/dL [facility] Comment: Supplemental ranges: <140 mg/dL before meals <180 mg/dL all other times of the day Blood specimen (specimen) 01/08/2018 1:28 AM EDT 01/08/2018 1:28 AM EDT Rafat Jerome MD POINT OF CARE TEST O RDERABLES Performing Organization Address [facility] Co de Phone Number [facility] [place] [address] documented in this encounter Visit Diagnoses Diagnosis [...] - Reason: See comment - Comment: given [id number] (see mar) per pt request) docusate sodium [...] Routine documented in this encounter Care Teams Sand Shoveler Relationship Specialty Start Date End Date Ruben Gillette MD [facility] GENER[facility] [place] [address] PCP - General Internal Medicine 01/11/1810/20 documented as of this encounter
--- OUTSIDE RECORDS SUMMARY | 2024-02-24 19:40 | XMS_ITS | Encounter Summary ---
Author Organization [facility] [place] [address] Care Team Providers Care Department Head [employer] Name Role Phone Hoa Jacques APRN Primary Care Provider + Reason for Visit * Reason Comments Medication Refill Encounter Details Date Type Department Care Team ([facility] Contact Info) Description 04/09/2015 Refill [place] [address] González Craven MD [facility] [place] [address] Chronic atrial fibrillation Social History Tobacco Use [...] fibrillation documented in this encounter Care Teams Department Head [employer] Relationship Specialty Start Date End Date Hoa Jacques APRN PCP - General 06/24/10 12/19/17 documented as of this encounter
--- OUTSIDE RECORDS SUMMARY | 2024-02-24 19:40 | XMS_ITS | Encounter Summary ---
[place] [address] Care Team Providers Care Post Hole Digging Machine Operator Name Role Phone Ruben Gillette MD Primary Care Provider + Reason for Visit * Reason Onset Date Comments Transitional Care Management 01/12/2018 Encounter Details Date Type Department Care Team (Late st Contact Info) Description 01/12/2018 Patient Outreach [place] [address] Jessie Bernard [facility] Transitional Care Management Social History [...] Notes * Telephone Encounter - Jessie Gonzalez [facility] - 01/12/2018 3:33 PM EDT Post Hospital Discharge Call Transitional Care 01/12/2018 Date of Current Admission 01/08/2018 Facility [facility] Date of most recent discharge to home [...] fillout information below HOME HEALTH CARE AGENCY: [facility] PHONE: [phone] FAX: [phone] Action Plan - assure patient understands action [...] on filedocumented in this encounter Care Teams Post Hole Digging Machine Operator Relationship Specialty Start Date End Date Ruben Gillette MD [facility] GENER[facility] INTERNAL [place] [address] PCP - General General Internal Medicine 01/11/1810/20 documented as of this encounter
--- OUTSIDE RECORDS SUMMARY | 2024-02-24 19:41 | XMS_ITS | Encounter Summary ---
[place] [address] Care Team Providers Care Pumper Gauger Apprentice Name Role Phone Hoa Jacques APRN Primary Care Provider + Reason for Visit * Reason Comments Skin Check Encounter Details Date Type Department Care Team (Late st Contact Info) Description 07/17/2011 11:15 AM EST Office Visit Dermatology [address] [place] [address] [address] [place] [address] David Ayoub MD [address] [place] [address] RD, [facility] [place] [address] History of malignant melanoma (Primary Dx); History [...] Rosacea documented in this encounter Care Teams Pumper Gauger Apprentice Relationship Specialty Start Date End Date Hoa Jacques, SHO PCP - General 06/24/10 12/19/17 documented as of this encounter
--- OUTSIDE RECORDS SUMMARY | 2024-02-24 19:41 | XMS_ITS | Encounter Summary ---
Author Organization [facility] Address [facility] [place] [address] Care Team Providers Care Summer School Coordinator Name Role Phone Quin Gordon APRN Primary Care Provider + Reason for Referral * Physical Therapy (Routine) - Closed by system - unspecified Specialty Diagnoses / Procedures Referred By Contjohn t Referred To Contact Physical Therapy Diagnoses Gait instability Osteoarthrosis, unspecified whether generalized or localized, lower leg Proximal leg weakness Orlando Encinas MD [facility] [place] [address] Referral ID Status Reason Start Date Expiration Date Visits Requested Visits Authorized [id number] Closed by system - unspecified Evaluate and Treat 10/06/2011 04/03/2012 1 1 Reason for Visit * Reason Comments Advice Only Encounter Details Date Type Department Care Team ([facility] st Contact Info) Description 10/06/2011 1:45 PM EDT Office [place] [address] [facility] [place] [address] Gait instability; Seronegative arthritis; Osteoarth NOS-l/leg; Osteoarth [...] PM EDT Rheumatology Clinic: Dr. Encinas 10/06/2011 [id number] Dhaval Yee is a 61 y.o. female [...] her garage. 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 She also did [...] STONE Oct 07, 2011 10:06 AM EDT [phone] BILATERAL FEET, THREE VIEWS EACH SIDE, 10/06/2011 [...] VELASCO Oct 06, 2011 5:18 PM EDT [phone] Reason for exam and clinical history: H/O [...] is normal. The soft tissues surrounding the [id number] PIP joint is swollen. Joints- 1. Interphalangeal [...] MD CHEMISTRY ORDERAB LES Performing Organization Address [facility] Co de Phone Number [facility] LIZARRAGAIUM * CK (10/06/2011 3:38 PM EDT) Creatine Kinase 132 0 - 160 unit/L [facility] FONSECAENNI[facility] Blood specimen (specimen) 10/06/2011 3:38 PM EDT 10/06/2011 3:47 PM EDT Narrative Resulting Agency Comment Spec In Lab Orlando Encinas MD CHEMISTRY ORDERAB LES Performing Organization Address [facility] Co de Phone Number [facility] LIZARRAGAI[facility] * TSH (10/06/2011 3:38 PM EDT) Thyroid Stimulating Hormone 0.98 0.27 - 4.20 mcIU/mL [facility] Blood specimen (specimen) 10/06/2011 3:38 PM EDT 10/06/2011 3:47 PM EDT Narrative Resulting Agency Comment Spec In Lab Orlando Encinas MD CHEMISTRY ORDERAB LES Performing Organization Address [facility] Co de Phone Number [facility] LIZARRAGAIUM * High Sensitivity CRP (10/06/2011 3:38 PM EDT) C-Reactive Protein High Sensitivity 0.3 mg/L [facility] Comment: Interpretations: 1) For cardiac risk assessment, [...] MD HEMATOLOGY ORDERA BLES Performing Organization Address [facility]/State/ZIP Co de Phone Number CERWYATT LIZARRAGAIUM * [...] foot documented in this encounter Care Teams Summer School Coordinator Relationship Specialty Start Date End Date Quin Gordon APRN PCP - General 06/24/10 12/19/17 documented as of this encounter
--- OUTSIDE RECORDS SUMMARY | 2024-02-24 19:41 | XMS_ITS | Encounter Summary ---
Author Organization [facility] Address [address] [place] [address] Care Team Providers Care Manager Organizational Name Role Phone Unavailable Primary Care Provider Unavailabl e Encounter Details Date Type Department Care Team (Late st Contact Info) Description 01/17/2002 Results Only [facility] [address] [place] [address] Quin Jacques, IT COMPLIANCE ANALYST [address] [place] [address] Social History Tobacco Use Types [...] ? DHAVAL YEE ? Accession #: ? [id number] : ? 1950 (Age: 51) ??F ?Collect Date: ? 01/17/2002 Location: ? [facility] ? Receive Date: ? 01/19/2002 Provider: ?QUIN JACQUES IT COMPLIANCE ANALYST Copy to: ? Specimen/Source: ?ThinPrep Pap [...] Jacques NP PATHOLOGY ORDERABLES [facility] [address] [place] [address] documented in this encounter Visit Diagnoses Not on filedocumented in this encounter
--- OUTSIDE RECORDS SUMMARY | 2024-02-24 19:41 | XMS_ITS | Encounter Summary ---
[place] [address] Care Team Providers Care Wheel Truing Machine Tender Name Role Phone Hoa Jacques APRN Primary Care Provider + Reason for Visit * Reason Comments Suture / Staple Removal Encounter Details Date Type Department Care Team (Late st Contact Info) Description 08/05/2011 10:15 AM EST Office Visit Dermatology [address] [place] [address] [address] [place] [address] David Ayoub MD [address] [place] [address] RD, [place] [address] Visit for suture removal (Primary Dx) Social [...] sutures documented in this encounter Care Teams Wheel Truing Machine Tender Relationship Specialty Start Date End Date Hoa Jacques APRN PCP - General 06/24/10 12/19/17 documented as of this encounter
--- OUTSIDE RECORDS SUMMARY | 2024-02-24 19:41 | XMS_ITS | Encounter Summary ---
Author Organization [facility] Address [address] [place] [address] Care Team Providers Care Specimen Processor Name Role Phone Unavailable Primary Care Provider Unavailabl e Encounter Details Date Type Department Care Team (Late st Contact Info) Description 10/20/2005 Results Only [facility] [address] [place] [address] Hoa Jacques, APPEALS OFFICER [address] [place] [address] Social History Tobacco Use Types [...] ? DHAVAL YEE ? Accession #: ? [id number] : ? 1950 (Age: 55) ??F ?Collect Date: ? 10/20/2005 Location: ? [facility] ? Receive Date: ? 10/22/2005 Provider: ?HOA JACQUES APPEALS OFFICER Copy to: ? Specimen/Source: ?ThinPrep Pap Test, Cervix/Endocervix, processed on orderbolt ThinPrep Imaging System, with manual evaluation Last [...] End of Report [facility] FLORE[facility] 10/20/2005 10/22/2005 Hoa Jacques NP PATHOLOGY ORDERABLES [facility] [address] [place] [address] documented in this encounter Visit Diagnoses Not on filedocumented in this encounter
--- OUTSIDE RECORDS SUMMARY | 2024-02-24 19:41 | XMS_ITS | Encounter Summary ---
Author Organization [facility] Address [facility] [place] [address] Care Team Providers Care Plant Control Operator Name Role Phone Hoa Jacques APRN Primary Care Provider + Encounter Details Date Type Department Care Team (Latest Contact Info) Description 10/06/2011 3:45 PM EDT - 10/06/2011 11:59 PM EDT Hospital Encounter XRay at [address] [place] [address] Seronegative arthritis; Osteoarth NOS-l/leg Social History Tobacco [...] leg documented in this encounter Care Teams Plant Control Operator Relationship Specialty Start Date End Date Hoa Jacques APRN PCP - General 06/24/10 12/19/17 documented as of this encounter
--- OUTSIDE RECORDS SUMMARY | 2024-02-24 19:41 | XMS_ITS | Encounter Summary ---
Author Organization [facility] Address [address] [place] [address] Care Team Providers Care Director Of Clinical Education Name Role Phone Unknown, Provider Primary Care Provider Encounter Details Date Type Department Care Team (Late st Contact Info) Description 05/20/2010 Results Only [facility] [phone] Guillermo Valladares MD [address] [place] [id number] Social History Tobacco Use Types Packs/Day Years [...] YEE, DHAVAL P ? Accession #: ? [id number] ? : ? 1950 (Age: 60) ??F [...] Mc/luiz ? Antibody (Clone) ? Result ? Girard-1 (Melan-A)(A103, [facility]) ? Highlights architectural ?? [...] ??performance ? characteristics have been determined by [facility]. ??This ? laboratory is certified under the [...] MD PATHOLOGY ORDERABLES [facility] [address] [place] [address] documented in this encounter Visit Diagnoses Not on filedocumented in this encounter Care Teams Director Of Clinical Education Relationship Specialty Start Date End Date Unknown, Provider, PCP - General 05/21/10 documented as of this encounter
--- OUTSIDE RECORDS SUMMARY | 2024-02-24 19:41 | XMS_ITS | Encounter Summary ---
Author Organization [facility] [place] [address] Care Team Providers Care Carpenter'S Assistant Name Role Phone Hoa Jacques APRN Primary Care Provider + Reason for Visit * Reason Comments Skin Check Encounter Details Date Type Department Care Team (Late st Contact Info) Description 01/01/2011 10:30 AM EDT Office Visit Dermatology [address] [place] [address] [address] [place] [address] David Ayoub MD [address] [place] [address] RD, [facility] [place] [address] Personal history of malignant melanoma (Primary Dx); [...] submitted for pathologic analysis. Pathology Addendum per [facility] 01/09/11 : Basal Cell Carcinoma, nape of neck documented in this encounter Plan of Treatment Not on file documented as of this encounter Visit Diagnoses Diagnosis Personal history of malignant melanoma- Primary Personal history of malignant melanoma of skin Rosacea Basal cell carcinoma of back Basal cell carcinoma of skin of trunk, except scrotum documented in this encounter Care Teams Carpenter'S Assistant Relationship Specialty Start Date End Date Hoa Jacques APRN PCP - General 06/24/10 12/19/17 documented as of this encounter
--- OUTSIDE RECORDS SUMMARY | 2024-02-24 19:41 | XMS_ITS | Encounter Summary ---
Author Organization [facility] Address [address] [place] [address] Care Team Providers Care Sales Officer Name Role Phone Unavailable Primary Care Provider Unavailabl e Encounter Details Date Type Department Care Team (Late st Contact Info) Description 05/14/2010 Results Only [facility] Laboratory Services - [facility] ([facility] [address] [place] [address] Quin Jacques, MAITE [address] [place] [address] Social History Tobacco Use Types [...] ? DHAVAL YEE ? Accession #: ? [id number] ? : ? 1950 (Age: 60) ??F [...] [facility] 05/14/2010 05/20/2010 Quin Jacques PRODUCTION CONTROL EXPEDITER PATHOLOGY ORDERABLES [facility] [address] [place] [address] documented in this encounter Visit Diagnoses Not on filedocumented in this encounter
--- OUTSIDE RECORDS SUMMARY | 2024-02-24 19:41 | XMS_ITS | Encounter Summary ---
Author Organization [facility] Address [address] [facility] [place] [address] Care Team Providers Care Wire Bender Hand Name Role Phone Hoa Jacques APRN Primary Care Provider + Encounter Details Date Type Department Care Team (Latest Contact Info) Description 10/06/2011 3:45 PM EDT - 10/06/2011 11:59 PM EDT Hospital Encounter XRay at [address] [place] [address] Seronegative arthritis; Osteoarth NOS-ankle Social History Tobacco [...] foot documented in this encounter Care Teams Wire Bender Hand Relationship Specialty Start Date End Date Hoa Jacques APRN PCP - General 06/24/10 12/19/17 documented as of this encounter
--- OUTSIDE RECORDS SUMMARY | 2024-02-24 19:41 | XMS_ITS | Encounter Summary ---
Author Organization [facility] Address [address] [place] [address] Care Team Providers Care 21 Dealer Name Role Phone Unknown, Provider Primary Care Provider Encounter Details Date Type Department Care Team (Late st Contact Info) Description 01/08/2018 Results Only Imaging [facility]- [facility] [phone] Unknown, Provider, Social History Tobacco Use Types [...] on filedocumented in this encounter Care Teams 21 Dealer Relationship Specialty Start Date End Date Unknown, Provider, PCP - General 05/21/10 documented as of this encounter
--- OUTSIDE RECORDS SUMMARY | 2024-02-24 19:41 | XMS_ITS | Encounter Summary ---
Author Organization [place] [address] Care Team Providers Care Aerospace Engineer Officer Armament Name Role Phone Hoa Jacques APRN Primary Care Provider + Reason for Visit * Reason Comments Procedure Encounter Details Date Type Department Care Team (Late st Contact Info) Description 07/29/2011 10:15 AM EST Office Visit Dermatology [address] [place] [address] [address] [place] [address] David Ayoub MD [address], [facility] [place] [address] Nevus (Primary Dx) Social History Tobacco Use [...] and biopsy results by Dr. Ayoub in [facility]. Pathology Addendum per [facility] 08/01/11 : Sites A and B : Intradermal nevus documented in this encounter Plan of Treatment Not on file documented as of this encounter Visit Diagnoses Diagnosis Nevus- Primary Benign neoplasm of skin, site unspecified documented in this encounter Care Teams Aerospace Engineer Officer Armament Relationship Specialty Start Date End Date Hoa Jacques, COAT CHECKER PCP - General 06/24/10 12/19/17 documented as of this encounter
--- OUTSIDE RECORDS SUMMARY | 2024-02-24 19:41 | XMS_ITS | Encounter Summary ---
Author Organization [facility] Address [address] [place] [address] Care Team Providers Care Seaming Machine Operator Name Role Phone Unavailable Primary Care Provider Unavailabl e Encounter Details Date Type Department Care Team (Late st Contact Info) Description 11/23/2000 Results Only [facility] - Maple conversion [address] [place] [address] Quin Jacques, ELECTRONICS SUPERVISOR [address] [place] [address] Social History Tobacco Use Types [...] ? DHAVAL YEE ? Accession #: ? [id number] : ? 1950 (Age: 50) ??F ?Collect Date: ? 11/23/2000 Location: ? [facility] ? Receive Date: ? 11/25/2000 Provider: ?QUIN JACQUES ELECTRONICS SUPERVISOR Copy to: ? Specimen/Source: ?Conventional Pap Test, Cervix/Endocervix Last Menstrual Period: ? 09/20 Menstrual/Pregnanc y Status: ? Menorrhagia: Hormonal/Contracep tive Status: ? Provera Treatment History: ? Miscellaneous treatment: Endometrial biopsy ? SPECIMEN ADEQUACY ? Satisfactory for evaluation. GENERAL CATEGORIZATION ? Benign Cellular Changes DESCRIPTIVE DIAGNOSIS ? Atrophy with inflammation (Atrophic Vaginitis). ? Document reviewed and electronically signed by: ? [facility] ? Report Date: ??11/27/2000 18:28 End of Report [facility] 11/23/2000 11/25/2000 Quin Jacques NP PATHOLOGY ORDERABLES Performing Organization Address City/State/[facility] Co de Phone Number JERALD [facility] [address] [place] [address] documented in this encounter Visit Diagnoses Not on filedocumented in this encounter
--- OUTSIDE RECORDS SUMMARY | 2024-02-24 19:41 | XMS_ITS | Encounter Summary ---
[place] [address] Care Team Providers Care Bead Inspector Name Role Phone Hoa Jacques APRN Primary Care Provider + Encounter Details Date Type Department Care Team (Late st Contact Info) Description 07/04/2010 1:45 PM EST Office Visit Dermatology [address] [facility] [address] [place] [address] David Ayoub MD [address], [place] [address] Social History Tobacco Use Types Packs/Day Years Used Date Smoking Tobacco: Never Assessed Sex and Gender Information Value Date Recorded Sex Assigned at Not on file Gender Identity Not on file Sexual Orientation Not on file documented as of this encounter Plan of Treatment Not on file documented as of this encounter Visit Diagnoses Not on filedocumented in this encounter Care Teams Bead Inspector Relationship Specialty Start Date End Date Hoa Jacques APRN PCP - General 06/24/10 12/19/17 documented as of this encounter
--- OUTSIDE RECORDS SUMMARY | 2024-02-24 19:41 | XMS_ITS | Encounter Summary ---
Author [facility] [place] [address] Care Team Providers Care Radio News Anchor Name Role Phone Hoa Jacques APRN Primary Care Provider + Encounter Details Date Type Department Care Team (Late st Contact Info) Description 01/02/2011 Abstract Radiation Oncology at [address] [phone] Lisbet Cortez, KRIS Social History Tobacco Use [...] on filedocumented in this encounter Care Teams Radio News Anchor Relationship Specialty Start Date End Date Hoa Jacques APRN PCP - General 06/24/10 12/19/17 documented as of this encounter
--- OUTSIDE RECORDS SUMMARY | 2024-02-24 19:41 | XMS_ITS | Encounter Summary ---
[place] [address] Care Team Providers Care Manager Grocery Name Role Phone Hoa Jacques APRN Primary Care Provider + Encounter Details Date Type Department Care Team (Late st Contact Info) Description 06/20/2010 Orders [place] [address] David Monsalve MD [address] [place] [address], [place] [address] Social History Tobacco Use Types Packs/Day Years [...] 6:37 PM EST) Surgical Pathology Report ? [facility] ? Provider: ?? DAVID MONSALVE ?? Pt. Name: ?? DHAVAL YEE ? Acc #: ?[id number] ? Pt. ? Col Date: ?? 06/20/2010 [...] skin ? demonstrating centrally circumscribed, variegated, ? [facility] ? Provider: ?? DAVID MONSALVE ?? Pt. Name: ?? DHAVAL YEE ? Acc #: ?[id number] ? Pt. ? Col Date: ?? 06/20/2010 [...] ? Malignant melanoma 0.41 mm Breslow per [id number] punch BX for excision ? Clinical Diagnosis: ? Malignant melanoma ? Report to: ? David Monsalve MD, III ? [facility] ? Dermatology ? . [place], [place] ??[address] BRADLEY HESTER 06/20/2010 6:37 PM EST David Monsalve MD PATHOLOGY/CYTOLOGY O RDERABLES BRADLEY HESTER documented in this encounter Visit Diagnoses Not on filedocumented in this encounter Care Teams Manager Grocery Relationship Specialty Start Date End Date Hoa Jacques APRN PCP - General 06/24/10 12/19/17 documented as of this encounter
--- OUTSIDE RECORDS SUMMARY | 2024-02-24 19:41 | XMS_ITS | Encounter Summary ---
[place] [address] Care Team Providers Care Electrical Instrument Technician Name Role Phone Hoa Jacques APRN Primary Care Provider + Reason for Visit * Reason Onset Date Comments Results 10/13/2011 labs and xrays Encounter Details Date Type Department Care Team (Late st Contact Info) Description 10/13/2011 Telephone [place] [phone] Celeste Alanis LPN Results (labs and xrays) [...] filedocumented in this encounter Care Teams Electrical Instrument Technician Relationship Specialty Start Date End Date Hoa Jacques APRN PCP - General 06/24/10 12/19/17 documented as of this encounter
--- OUTSIDE RECORDS SUMMARY | 2024-02-24 19:41 | XMS_ITS | Encounter Summary ---
[place] [address] Care Team Providers Care Testing Machine Operator Name Role Phone Hoa Jacques APRN Primary Care Provider + Reason for Visit * Reason Comments Skin Check Encounter Details Date Type Department Care Team (Late st Contact Info) Description 04/29/2013 11:15 AM EST Office Visit Dermatology at [address] [place] [address] David Ayoub MD [address] [place] [address], [place] [address] History of malignant melanoma (Primary Dx); History [...] 45 grams dispensed with five refills. b. [id number] reminder in one year. COPY: Lana Ramos M.D. documented in this encounter Plan of Treatment Not on file documented as of this encounter Visit Diagnoses Diagnosis History of malignant melanoma- Primary Personal history of malignant melanoma of skin History of basal cell carcinoma Personal history of other malignant neoplasm of skin Rosacea documented in this encounter Care Teams Testing Machine Operator Relationship Specialty Start Date End Date Hoa Jacques APRN PCP - General 06/24/10 12/19/17 documented as of this encounter
--- OUTSIDE RECORDS SUMMARY | 2024-02-24 19:41 | XMS_ITS | Encounter Summary ---
[place] [address] Care Team Providers Care Cps Team Lead Name Role Phone Hoa Jacques APRN Primary Care Provider + Encounter Details Date Type Department Care Team (Late st Contact Info) Description 12/31/2010 Abstract Dermatology [address] [facility] [address] [place] [address] Lisbet Cortez RN Malignant melanoma Social History [...] unspecified documented in this encounter Care Teams Cps Team Lead Relationship Specialty Start Date End Date Hoa Jacques APRN PCP - General 06/24/10 12/19/17 documented as of this encounter
--- OUTSIDE RECORDS SUMMARY | 2024-02-24 19:41 | XMS_ITS | Encounter Summary ---
Author Organization [facility] Address [facility] [place] [address] Care Team Providers Care Adding Machine Servicer Name Role Phone Hoa Jacques APRN Primary Care Provider + Encounter Details Date Type Department Care Team (Late st Contact Info) Description 10/06/2011 3:44 PM EDT - 10/06/2011 11:59 PM EDT Hospital Encounter XRay at [address] [place] [address] CLINIC, Orlando Hogue MD [facility] [place] [address] Seronegative arthritis; Osteoarthrosis, unspecified whether generalized or [...] is normal. The soft tissues surrounding the [id number] PIP joint is swollen. Joints- 1. Interphalangeal [...] hand documented in this encounter Care Teams Adding Machine Servicer Relationship Specialty Start Date End Date Hoa Jacques, SKATE HOP PCP - General 06/24/10 12/19/17 documented as of this encounter
--- OUTSIDE RECORDS SUMMARY | 2024-02-24 19:41 | XMS_ITS | Encounter Summary ---
Author Organization [facility] Address [address] [place] [address] Care Team Providers Care Hydroelectric Systems Technician Name Role Phone Unavailable Primary Care Provider Unavailabl e Encounter Details Date Type Department Care Team (Late st Contact Info) Description 12/18/1999 Results Only [facility] [place] conversion [address] [place] [address] Aidee Schaefer MD [address] [place] [address] Social History Tobacco Use Types [...] ? DHAVAL YEE ? Accession #: ? [id number] : ? 1950 (Age: 49) ??F ?Collect Date: ? 12/18/1999 Location: ? [facility] ? Receive Date: ? 12/20/1999 Provider: ?AIDEE SCHAEFER RESTAURANT FRONT MANAGER Copy to: ? Specimen/Source: ?Conventional Pap Test, [...] MD PATHOLOGY ORDERABLES [facility] [address] [place] [address] documented in this encounter Visit Diagnoses Not on filedocumented in this encounter
--- OUTSIDE RECORDS SUMMARY | 2024-02-24 19:41 | XMS_ITS | Encounter Summary ---
[place] [address] Care Team Providers Care Hoister Name Role Phone Lana Ramos MD Primary Care Provider [phone] Encounter Details Date Type Department Care Team (Late st Contact Info) Description 06/20/2010 3:45 PM EST Office Visit Dermatology [address] [facility] [address] [place], [place] [address] David Ayoub MD [address], [place] [address] Social History Tobacco Use Types Packs/Day Years Used Date Smoking Tobacco: Never Assessed Sex and Gender Information Value Date Recorded Sex Assigned at Not on file Gender Identity Not on file Sexual Orientation Not on file documented as of this encounter Plan of Treatment Not on file documented as of this encounter Visit Diagnoses Not on filedocumented in this encounter Care Teams Hoister Relationship Specialty Start Date End Date Lana Ramos MD [facility] [address] [place], [place] [id number] PCP - General 05/14/10 06/23/10 documented as of this encounter
--- OUTSIDE RECORDS SUMMARY | 2024-02-24 19:41 | XMS_ITS | Encounter Summary ---
Author Organization [facility] [place] [address] Care Team Providers Care Car Detailer Name Role Phone Dean Camilo Primary Care Provider [phone] Encounter Details Date Type Department Care Team (Late st Contact Info) Description 06/20/2010 Orders Only Dermatology at [address] [place] [address] David Ayoub MD [address], NIK Claire DERMATOLOGY [place], [place] [id number] Social History Tobacco Use Types Packs/Day Years Used Date Smoking Tobacco: Never Assessed [facility] Utilities Answer Date Recorded In the past 12 months has [facility] electric, gas, oil, or water company threatened [...] (06/20/2010 6:37 PM EST) Surgical Pathology Report [id number] ? Location: [facility] The signing pathologist has (i) examined the relevant preparation(s) for the specimen(s) and (ii) rendered or confirmed the diagnosis(es). . ?Pathology Surgical Pathology Final Report Clinical Information Specimen Submitted: A - Central upper back, excision Clinical History: Malignant melanoma 0.41 mm Breslow per FA [id number] punch BX for excision Clinical Diagnosis: Malignant melanoma Report to: David Ayoub MD, III [facility] Dermatology [place], [place] ??[address] Gross Description Labeled/Fixative : ? Central upper [...] documented as of this encounter Care Teams Car Detailer Relationship Specialty Start Date End Date Dean Camilo PA [address] [place] [address] PCP - General Internal Medicine 02/01/21 documented as of this encounter
--- OUTSIDE RECORDS SUMMARY | 2024-02-24 19:41 | XMS_ITS | Encounter Summary ---
Author Organization [facility] [place] [address] Care Team Providers Care Cloth Bleaching Range Tender Name Role Phone Quin Gordon APRN Primary Care Provider + Encounter Details Date Type Department Care Team (Latest Contact Info) Description 03/29/2014 2:04 AM EDT - 03/30/2014 3:27 PM EDT Hospital Encounter [facility] 4 [place] [address] Cathie Venegas MD [facility] [place] [address] Atrial fibrillation; SVT (supraventricular tachycardia); Diabetes mellitus [...] day to have your insulin doses adjusted. [facility] Endocrine clinic office * Patient Instructions* Lana [...] [facility]io [facility] With Gracie Gordon at [phone] on Friday, April 04, 2014 at 08:00am PCP: QUIN GORDON APRN at [phone] Your Inpatient Medical Team at [facility] Name(s) of your inpatient provider(s): Dr. Cathie Venegas - Attending Dr. Cornelia Messer - Fellow Dr. González Craven - Resident Dr. Lana Suarez - Standards Analyst For questions regarding issues relating to your hospitalization on the Cardiology, please contact your inpatient physician through the [facility] Office Services Clerk [phone]. Issues after hours and on weekendswill be handled by the factory hand on-call. Your Primary Care Provider QUIN GORDON APRN [phone] documented in this encounter Medications at Time [...] Mejias RN - 03/30/2014 3:07 PM EDT Photo Tube Assembler assumed care of pt at 0700. A&OX3. [...] with . Pt wheeled out to [facility] for ride home. Pthad belongings with her [...] 20 minutes. Cathie Venegas MD MPH staff mobile heavy equipment operator/ pager [phone] * Lana Suarez - 03/30/2014 2:36 PM [...] for RCT to transport patient home to [place], [place] at 3 pm. * Leticia Paz [...] using moderate sliding scale Leticia Paz APRN [facility] Endocrinology Diabetes Management 20 minutes of this [...] day to have your insulin doses adjusted. [facility] Endocrine clinic office * Varghese Chanel - 03/29/2014 8:49 AM EDT Gas Scrubber Operator Encounter Note Patient Name: Dhaval Yee : [id number] MR#: [id number] Admit Date: 03/29/2014 2:04 AM Hospital Day 0 days Narrative:Visited to introduce and assess acceptance of Gas Scrubber Operator services. Pt was awake, alert, oriented and in bed. Pt says that she is feeling better now. Pt shared that her three daughters are living in same area [facility] and they are supportive. Assessment:Patient coping positively with stresses of illness/hospitalization at this time. Pt has family care and support and appreciative of family. Pt is hoping to get better and go home. Intervention and Outcome:Provided emotional support and encouraging presence. Gas Scrubber Operator services accepted. Conversation to build trusting relationship. Provided pastoral presence. Provided spiritualguidance. Follow-up: Yes Time in Direct Care:10 Mins Varghese Chanel 03/29/2014 documented in this encounter H&P Notes * Cathie Venegas MD - 03/29/2014 2:30 AM EDT Inpatient Cardiology - Admission History & Physical - M1S1 - Pager [phone] Presenting diagnosis/chief complaint: Atrial Fibrillation/SVT History of [...] stable BP. Patient was then discussed with [facility] Cardiology and transferred for further evaluation. En route to [facility], patient spontaneously converted to NSR with rates [...] discuss outpatient anticoagulation with her as her [id number] score is 4 (age = 1, sex [...] 12 lead ECG demonstrating a very short TN suggesting a tasia- dependent pathway. I appreciate input from EP. Cathie Venegas MD MPH staff mobile heavy equipment operator/ pager [phone] documented in this encounter Procedure Notes * Provider, Scanning - 03/31/2014 2:06 PM EDTAssociated Order(s): SCAN DOC: ECG * Provider, Scanning - 03/31/2014 12:51 PM EDTAssociated Order(s): SCAN DOC: HAND PACKAGER documented in this encounter Consult Notes * Provider, Scanning - 03/31/2014 2:04 PM EDT documented in this encounter Miscellaneous Notes * Discharge Summary - Cathie Veneags MD - 03/30/2014 1:52 PM EDT Discharge Summary Patient Name: Dhaval Yee Patient Age: 63 y.o. Language: Citizen Of [place] Race: White Ethnicity: Not nor Admit date: 03/29/2014 Discharge date and time: 03/30/2014 Attending Physician: Cathie Venegas MD Discharge Physician: Lana Suarez MD Follow-up Recommendations for Providers: [phone][facility] that would appreciate outpatient Holter monitor prior to her appointment with EP. Inpatient Provider Contact Information: Dr. Cathie Venegas - Attending Dr. Cornelia Messer - Fellow Dr. González Craven - Resident Dr. Lana Suarez - Standards Analyst Discharge Diagnoses (Hospital Problems) and Secondary Diagnoses [...] she called 911 and was taken to [facility]. En route, patient was found have [...] stable BP. Patient was then discussed with [facility] Cardiology and transferred for further evaluation. En route to [facility], patient spontaneously converted to NSR with rates [...] dose of rivaroxaban. Risks and benefits of hr recruiter anticoagulation options were discussed and the patient [...] [facility] With Gracie Gordon at [phone] on Friday, April 04, 2014 at 08:00am PCP: QUIN GORDON APRN at [phone] Your Inpatient Medical Team at [facility] Name(s) of your inpatient provider(s): Dr. Cathie Venegas - Attending Dr. Cornelia Messer - Fellow Dr. González Craven - Resident Dr. Lana Suarez - Standards Analyst For questions regarding issues relating to your hospitalization on the Cardiology, please contact your inpatient physician through the [facility] Office Services Clerk [phone]. Issues after hours and on weekendswill be handled by the factory hand on-call. Your Primary Care Provider QUIN GORDON APRN [phone] General Instructions Insulin Discharge Instructions You have [...] day to have your insulin doses adjusted. [facility] Endocrine clinic office Future Appointments and Orders Future Appointments: Provider: Department: Dept Phone: Center: 05/01/2014 10:45 AM David Ayoub MD [facility] [phone] None 05/01/2014 2:30 PM Katy Dickey APRN Endocrinology [phone] [facility] 05/11/2014 1:10 PM Jeff Feliciano MD Cardiology [phone] [facility] Joint Appt Nurse One Cardiology Intake, RN [place] [phone] [facility] Discharge References/Attachments None * Plan of Care - Natalie Zepeda RN - 03/30/2014 6:29 AM EDT Problem: Pain, Acute (Adult, Obstetrics) Goal: Acceptable Pain Control/Comfort Level Patient will demonstrate the desired outcomes. Outcome: Absent and monitoring Ms. Yee has consistnelty denied pain thoughout this mine shifter. She appeared to sleep well during the [...] management and to provide a review of senior care diabetes care. Diabetes History: Dhaval Yee has [...] an appointment today to establish care in [facility] Endocrinology clinic. We will reschedule this for her as she states she would like to be followed here. We discussed treating hypoglycemia with a fast acting sugar such as life savers, juice or soda. We also discussed that the metformin and glipizide should be taken before a meal. She agrees to increase her walking to 3-4 times a week if OK with her mobile heavy equipment operator. The [place] Diabetes Association (ADA) and the Association for [...] 8 gm carb ratio for each meal) [facility] diabetes care: Medications - Outpatient treatment regimen [...] metoprolol and broke sinus during transfer to [facility]. Since arrival she has remained in sinus [...] Daily Hector Cox MD 5 mg at [id number] ??? metoprolol (LOPRESSOR) pre-split tablet 37.5 mg 37.5 mg Oral Q6H [facility] Hector Cox MD 37.5 mg at 03/29/14 [...] injection 5,000 Units 5,000 Units Subcutaneous Q8H [facility] Hector Cox MD ??? [COMPLETED] magnesium sulfate [...] of sympt omatic atrial fibrillation with elevated [id number] score of 4(age, sex, HTN, DM) she [...] be OSH records related to previous ED visits([facility]; she also indicates she has been evaluated by Dr. Hammond several years ago). Consult service will continue to follow patient. Provider: KATHLEEN Beard Provider#: [id number] Consult attending physician: Gi Feliciano MD Addendum I have personally interviewed and examined the patient and reviewed the available records 63 y.o. woman with DM, HTN, obesity, admitted with symptomatic rapid heart rhythm. Her history is consistent with a nodally dependent re-entry rhythm ; her ecg from [facility] appears to be coarse [...] Comments ECG SCAN 03/31/2014 2:06 PM EDT HAND PACKAGER SCAN 03/31/2014 12:51 PM EDT POCT GLUCOSE [...] SCAN EXT O RDR/RSLT * SCAN DOC: HAND PACKAGER (03/31/2014 12:51 PM EDT) Anatomical Region Laterality Modality Other Narrative 03/31/2014 1:07 PM EDT Procedure Note Provider, Scanning - 03/31/2014 12:51 PM EDT Scanning Provider MEDIA MGR SCAN EXT O RDR/RSLT * (ABNORMAL) POCT Glucose (03/30/2014 2:22 PM EDT) [facility] Glucose, POC 291(H) 60 - 199 mg/dL [facility] Comment: Supplemental ranges: <140 mg/dL before meals <180 mg/dL all other times of the day Blood specimen (specimen) 03/30/2014 2:22 PM EDT 03/30/2014 2:22 PM EDT Cathie Venegas MD POINT OF CARE CHANCE T ORDERABLES Performing Organization Address [facility] Co de Phone Number BRADLEY LIZARRAGAIUM * (ABNORMAL) POCT Glucose (03/30/2014 11:58 AM EDT) Glucose, POC 266(H) 60 - 199 mg/dL [facility] Comment: Supplemental ranges: <140 mg/dL before meals <180 mg/dL all other times of the day Blood specimen (specimen) 03/30/2014 11:58 AM EDT 03/30/2014 11:58 AM EDT Cathie Venegas MD POINT OF CARE CHANCE T ORDERABLES Performing Organization Address [facility] de Phone Number BRADLEY LIZARRAGAIUM * (ABNORMAL) POCT Glucose (03/30/2014 7:32 AM EDT) Glucose, POC 239(H) 60 - 199 mg/dL [facility] Comment: Supplemental ranges: <140 mg/dL before meals <180 mg/dL all other times of the day Blood specimen (specimen) 03/30/2014 7:32 AM EDT 03/30/2014 7:32 AM EDT Cathie Venegas MD POINT OF CARE CHANCE T ORDERABLES Performing Organization Address [facility] de Phone Number BRADLEY LIZARRAGAIUM * Differential, [...] Lab Cathie Venegas MD HEMATOLOGY ORDERA BLES [facility] * (ABNORMAL) Hemogram (03/30/2014 7:14 AM [...] MD HEMATOLOGY ORDERA BLES Performing Organization Address [facility] Co de Phone Number BRADLEY HESTER [...] MD HEMATOLOGY ORDERA BLES Performing Organization Address [facility] de Phone Number BRADLEY LIZARRAGAIUM * Phosphorus (03/30/2014 7:14 AM EDT) Phosphorus 3.5 2.5 - 4.5 mg/dL [facility] Blood specimen (specimen) 03/30/2014 7:14 AM EDT 03/30/2014 7:25 AM EDT Narrative Resulting Agency Comment Spec In Lab Cathie Venegas MD CHEMISTRY ORDERAB LES Performing Organization Address [facility] de Phone Number BRADLEY LIZARRAGAIUM * Magnesium (03/30/2014 7:14 AM EDT) Magnesium 0.74 0.69 - 1.07 mmol/L [facility] LIZARRAGAIUM Blood specimen (specimen) 03/30/2014 7:14 AM EDT 03/30/2014 7:25 AM EDT Narrative Resulting Agency Comment Spec In Lab Cathie Venegas MD CHEMISTRY ORDERAB LES Performing Organization Address [facility] Co de Phone Number BRADLEY LIZARRAGAIUM * (ABNORMAL) Basic Metabolic Panel (non-fasting) (03/30/2014 7:14 AM EDT) Glucose 231(H) 60 - 199 mg/dL [facility] Comment:Diabetes: >=200 mg/d L plus symptoms Blood Urea Nitrogen 15 8 - 18 mg/dL [facility] Creatinine 0.62(L) 0.70 - 1.20 mg/dL [facility] Comment: Please note that the pediatric reference intervals supplied above were not validated at [facility]. Results from pediatric patients should be interpreted [...] the following links into your internet browser. [email or web address] Blood specimen (specimen) 03/30/2014 7:14 AM EDT [...] (Bezet) 429 ms MUSE SYSTEM Calculated P Dawson 32 degrees MUSE SYSTEM Calculated R Dawson 11 degrees MUSE SYSTEM Calculated T Dawson 30 degrees MUSE SYSTEM INTERPRETATION Normal sinus rhythm Low voltage QRS Borderline ECG When compared with ECG of 29-MAR-2014 13:03, No significant change was found Confirmed by MD GONZALEZ ALAN ([id number]) on 03/31/2014 5:37:35 AM MUSE SYSTEM 03/30/2014 6:40 AM EDT 03/31/2014 5:37 AM EDT Cathie Venegas MD ECG ORDERABLES Performing Organization Address [facility] Phone Number MUSE SYSTEM * POCT Glucose (03/30/2014 3:47 AM EDT) Glucose, POC 154 60 - 199 mg/dL [facility] Comment: Supplemental ranges: <140 mg/dL before meals <180 mg/dL all other times of the day Blood specimen (specimen) 03/30/2014 3:47 AM EDT 03/30/2014 3:47 AM EDT Cathie Venegas MD POINT OF CARE CHANCE T ORDERABLES Performing Organization Address [facility] Phone Number [facility] * POCT Glucose (03/30/2014 12:08 AM EDT) Glucose, POC 194 60 - 199 mg/dL [facility] Comment: Supplemental ranges: <140 mg/dL before meals <180 mg/dL all other times of the day Blood specimen (specimen) 03/30/2014 12:08 AM EDT 03/30/2014 12:08 AM EDT Cathie Venegas MD POINT OF CARE CHANCE T ORDERABLES Performing Organization Address [facility] Phone Number [facility] * (ABNORMAL) APTT (03/29/2014 10:18 PM EDT) Partial Thromboplastin Time >160(Crit ical) 25 - 35 sec [facility] Comment: Called by: AUTUMN, Read back by: TOMAS KAYE, Date/Time:03/29/14 23:36. Recommended therapeutic PTT range for full dose unfractionated heparin is 80-114 seconds. Blood specimen (specimen) 03/29/2014 10:18 PM EDT 03/29/2014 11:02 PM EDT Narrative Resulting Agency Comment Spec In Lab Cathie Venegas MD HEMATOLOGY ORDERA BLES Performing Organization Address [facility] Phone Number [facility] * (ABNORMAL) POCT Glucose (03/29/2014 9:56 PM EDT) Glucose, POC 275(H) 60 - 199 mg/dL [facility] Comment: Supplemental ranges: <140 mg/dL before meals <180 mg/dL all other times of the day Blood specimen (specimen) 03/29/2014 9:56 PM EDT 03/29/2014 9:56 PM EDT Cathie Venegas MD POINT OF CARE CHANCE T ORDERABLES Performing Organization Address [facility] Phone Number [facility] * (ABNORMAL) POCT Glucose (03/29/2014 8:08 PM EDT) Glucose, POC 297(H) 60 - 199 mg/dL [facility] Comment: Supplemental ranges: <140 mg/dL before meals <180 mg/dL all other times of the day Blood specimen (specimen) 03/29/2014 8:08 PM EDT 03/29/2014 8:08 PM EDT Cathie Venegas MD POINT OF CARE CHANCE T ORDERABLES Performing Organization Address [facility] de Phone Number [facility] * (ABNORMAL) POCT Glucose (03/29/2014 4:15 PM EDT) Glucose, POC 273(H) 60 - 199 mg/dL [facility] Comment: Supplemental ranges: <140 mg/dL before meals <180 mg/dL all other times of the day Blood specimen (specimen) 03/29/2014 4:15 PM EDT 03/29/2014 4:15 PM EDT Cathie Venegas MD POINT OF CARE CHANCE T ORDERABLES Performing Organization Address [facility] Co de Phone Number [facility] * (ABNORMAL) APTT (03/29/2014 3:56 PM EDT) Pathologist [facility] Partial Thromboplastin Time 81(H) 25 - 35 sec [facility] Comment: Recommended therapeutic PTT range for full dose unfractionated heparin is 80-114 seconds. Blood specimen (specimen) 03/29/2014 3:56 PM EDT 03/29/2014 4:31 PM EDT Narrative Resulting Agency Comment Spec In Lab Cathie Venegas MD HEMATOLOGY ORDERA BLES Performing Organization Address [facility] Phone Number [facility] * EKG 12 Lead (03/29/2014 1:03 PM EDT) Ventricular rate 67 BPM MUSE SYSTEM Atrial Rate 67 BPM MUSE SYSTEM P-R Interval 200 ms MUSE SYSTEM QRS Duration 70 ms MUSE SYSTEM Q-T Interval 416 ms MUSE SYSTEM QTC Calculated (Bezet) 439 ms MUSE SYSTEM Calculated P Dawson 26 degrees MUSE SYSTEM Calculated R Dawson 15 degrees MUSE SYSTEM Calculated T Dawson 21 degrees MUSE SYSTEM INTERPRETATION Normal sinus [...] Glucose, POC 66 60 - 199 mg/dL [facility] Comment: Supplemental ranges: <140 mg/dL before meals <180 mg/dL all other times of the day Blood specimen (specimen) 03/29/2014 12:19 PM EDT 03/29/2014 12:19 PM EDT Cathie Venegas MD POINT OF CARE CHANCE T ORDERABLES Performing Organization Address [facility] Co de Phone Number [facility] * Echocardiogram Transthoracic(Leb) (03/29/2014 11:38 AM EDT) EF 74 HEARTLAB SYSTEM Anatomical Region Laterality Modality Other 03/29/2014 Narrative 03/29/2014 11:53 AM EDT Procedure: ? Transthoracic Echocardiogram Patient: ? YEE DHAVAL O ?(Age): 1950(63) Med Rec#: ?[id number] ? Sex: ?F ? Site Loc: ?[facility] ? Ht / Wt: ??170(cm)/94(kg) Pt. Loc: ? Adult Floor ?BSA: ?2.11 Study Date: ?03/29/2014 ? Pt. Type: Inpatient Tape: ? Referring: Cathie Venegas ?? Referring: CELINA DE LEON A Velvet Cutter: Mariama Spicer Diagnosis:CPT Code(s): ??Echo Full (41833), ??Spectral Doppler (06969), Color Doppler (48596), ??Optison (51470HI), Indication(s): ??Atrial fibrillation Rhythm: HR ?BP ?131/76 [...] ? Mid-Inferior ?Normal ? Mid-Inferoseptal ?Normal ? [place]-Septal ? Normal ? [place]-Anterior ? Normal ? [place]-Lateral ?Normal ? [place]-Inferior ? Normal ? [place]-Tip ?Normal ? Chambers ?Value ?Units (Range) ? [...] 03/29/2014 11:53:09 Images reviewed and interpretation verified [facility] Cardiac Ultrasound Laboratory Procedure Note Sunil Barriga MD - 03/29/2014 Procedure: Transthoracic Echocardiogram Patient: NAKIA Calix DOB(Age): 1950(63) Med Rec#: [id number] Sex: F Site Loc: [facility] Ht / Wt: 170(cm)/94(kg) Pt. Loc: Adult Floor BSA: 2.11 Study Date: 03/29/2014 Pt. Type: Inpatient Tape: Referring: Cathie Venegas Referring: CELINA DE LEON A Velvet Cutter: Mariama Spicer Diagnosis:CPT Code(s): Echo Full (49377), Spectral Doppler (11195), Color Doppler (65436), Optison ([id number]), Indication(s): Atrial fibrillation Rhythm: HR BP 131/76 [...] change in the inferior vena cava dimension. [facility] Two-dimensional echo, spectral Doppler and color Doppler performed. Optison contrast (one 3 ml vial) was used to enhance endocardial definition. Excess contrast was discarded. Wall Motion: Segment Name Rest Base-Anteroseptal Normal Base-Anterior Normal Base-Anterolateral Normal Base-Posterolateral Normal Base-Inferior Normal Base-Inferoseptal Normal Mid-Anteroseptal Normal Mid-Anterior Normal Mid-Anterolateral Normal Mid-Posterolateral Normal Mid-Inferior Normal Mid-Inferoseptal Normal [place]-Septal Normal [place]-Anterior Normal [place]-Lateral Normal [place]-Inferior Normal [place]-Tip Normal Chambers Value Units (Range) EF Bi-p [...] 03/29/2014 11:53:09 Images reviewed and interpretation verified [facility] Cardiac Ultrasound Laboratory Cathie Venegas MD ECHO ORDERABLES * POCT Glucose (03/29/2014 10:25 AM EDT) Pathologist [facility] Glucose, POC 159 60 - 199 mg/dL [facility] Comment: Supplemental ranges: <140 mg/dL before meals <180 mg/dL all other times of the day Blood specimen (specimen) 03/29/2014 10:25 AM EDT 03/29/2014 10:25 AM EDT Cathie Venegas MD POINT OF CARE CHANCE T ORDERABLES [facility] * EKG 12 Lead (03/29/2014 10:21 AM EDT) Ventricular rate 69 BPM MUSE SYSTEM Atrial Rate 69 BPM MUSE SYSTEM P-R Interval 176 ms MUSE SYSTEM QRS Duration 74 ms MUSE SYSTEM Q-T Interval 410 ms MUSE SYSTEM QTC Calculated (Bezet) 439 ms MUSE SYSTEM Calculated P Dawson 8 degrees MUSE SYSTEM Calculated R Dawson 20 degrees MUSE SYSTEM Calculated T Dawson 26 degrees MUSE SYSTEM INTERPRETATION Normal sinus rhythm Normal ECG When compared with ECG of 29-MAR-2014 04:36, Premature atrial complexes are no longer Present Confirmed by MD ANAYELI, USHA ([id number]) on 03/29/2014 2:33:09 PM MUSE SYSTEM 03/29/2014 10:2 1 AM EDT 03/29/2014 2:33 PM EDT Cathie Venegas MD ECG ORDERABLES Performing Organization Address [facility] Co de Phone Number MUSE SYSTEM * (ABNORMAL) POCT Glucose (03/29/2014 7:56 AM EDT) Glucose, POC 345(H) 60 - 199 mg/dL [facility] Comment: Supplemental ranges: <140 mg/dL before meals <180 mg/dL all other times of the day Blood specimen (specimen) 03/29/2014 7:56 AM EDT 03/29/2014 7:56 AM EDT Cathie Venegas MD POINT OF CARE CHANCE T ORDERABLES Performing Organization Address [facility] de Phone Number [facility] * XR chest routine PA & lateral [...] (ABNORMAL) POCT Glucose (03/29/2014 6:22 AM EDT) [facility] Glucose, POC 373(H) 60 - 199 mg/dL [facility] Comment: Supplemental ranges: <140 mg/dL before meals <180 mg/dL all other times of the day Blood specimen (specimen) 03/29/2014 6:22 AM EDT 03/29/2014 6:22 AM EDT Cathie Venegas MD POINT OF CARE CHANCE T ORDERABLES Performing Organization Address [facility] Phone Number [facility] * EKG 12 Lead (03/29/2014 4:36 AM EDT) [facility] Ventricular rate 75 BPM MUSE SYSTEM Atrial Rate 75 BPM MUSE SYSTEM P-R Interval 196 ms MUSE SYSTEM QRS Duration 68 ms MUSE SYSTEM Q-T Interval 388 ms MUSE SYSTEM QTC Calculated (Bezet) 433 ms MUSE SYSTEM Calculated P Dawson -21 degrees MUSE SYSTEM Calculated R Dawson 31 degrees MUSE SYSTEM Calculated T Dawson 14 degrees MUSE SYSTEM INTERPRETATION Sinus rhythm with Premature atrial complexes Low voltage QRS Borderline ECG No previous ECGs available Confirmed by MD ANAYELI, USHA ([id number]) on 03/29/2014 8:23:52 AM MUSE SYSTEM 03/29/2014 4:36 AM EDT 03/29/2014 8:23 AM EDT Cathie Venegas MD ECG ORDERABLES Performing Organization Address [facility] Phone Number MUSE SYSTEM * Cardiac Enzymes (03/29/2014 3:19 AM EDT) [facility] Troponin-T <0.03 <=0.03 ng/mL [facility] Comment: 0.03 ng/mL: Represents the 99th percentile upper reference limit for normals. >0.03 ng/mL: Elevated cardiac troponin T level indicative of myocardial damage. Diagnosis of acute, evolving or recent PA requires a typical rise and gradual fall [...] consensus document of the Joint Society of Cardiology/[place] College of Cardiology Committee for the redefinition of myocardial infarction. ??Journal of the [place] College of Cardiology 2000; 36: 959-969] Creatine [...] MD HEMATOLOGY ORDERA BLES Performing Organization Address [facility] Co de Phone Number CERNER MILLENNIUM [...] MD HEMATOLOGY ORDERA BLES Performing Organization Address [facility]/ZIP Co de Phone Number CERNER MILLENNIUM [...] Mellitus, Diabetes Care 2013; 36: Suppl. 1, S67-30 Estimated Average Glucose 252 mg/dL [facility] Comment: eAG equivalents for HbA1c percentages: HbA1c(%) ?eAG(mg/dL) 6.0 ?126 6.5 ?140 7.0 ?154 7.5 ?169 8.0 ?183 8.5 ?197 9.0 ?212 9.5 ?226 10.0 ? 240 Limitations: The eAG calculation has not been validated on women, individuals below 18 years old and above 70 years old, and individuals with hemoglobinopathies. Additional resources are available on the ADA website: [email or web address].[email or web address] Mike NGUYEN, Jacqueline J, Kadi R, et al. ??Translating the A1C assay into estimated average glucose values. ??Diabetes Care 2008:31(8):9391-9094. Blood specimen (specimen) 03/29/2014 3:19 AM EDT 03/29/2014 3:25 AM EDT Narrative Resulting Agency Comment Spec In Lab Cathie Venegas MD CHEMISTRY ORDERAB LES [facility] * Lipid panel (fasting) (03/29/2014 3:19 AM EDT) Cholesterol, Total 124 <=199 mg/dL CERNER MILLENNIUM Comment: Recommendations of the NCEP Adult Treatment Panel for the following risk cutoff thresholds for the [place] population: Desirable: <200 mg/dL Borderline High: 200-239 mg/dL High: > or = 240 mg/dL Triglyceride 102 <=149 mg/dL CERNER MILLENNIUM Comment: Reference Range: Normal triglycerides: ??<150 mg/dL Borderline high: ??150-199 mg/dL High: ??200-499 mg/dL Very high: ??>cy=436 mg/dL WAYNE 2001; 285(19):8183-3683 HDL Cholesterol 56 >=40 mg/dL CER NER MILLENNIUM Comment: Reference range: ??Low HDL: ?? < 40 mg/dL ??Normal: ?40-60 mg/dL ??Desirable: > 60 mg/dL WAYNE 2001; 285(19):4971-4911 LDL Cholesterol 48 <=99 mg/dL CER NER MILLENNIUM Comment: Reference range: ?? Optimal: ?<100 mg/dL ?? Near Optimal/Above Optimal: ?? 100-129 mg/dL ?? Borderline high: ?130-159 mg/dL ?? High: ? 160-189 mg/dL ?? Very high: ?>tj=043 mg/dL WAYNE 2001: 285(19):7055-9235 Cholesterol/HDL Ratio 2.2 ratio CERNER MILLENNIUM Comment: A Cholesterol to HDL ratio below 4:1 is desirable. ??Studies suggest that increased CAD risk occurs at ratios above 5 for females and above 6 for men. ? [place] Heart Association ??(http://www.americanheart.org) ? Laura Int Med, 1994; 121:641 ? AM J Med, 1998; 105(1A):48S Blood specimen (specimen) 03/29/2014 3:19 AM EDT 03/29/2014 3:25 AM EDT Narrative Resulting Agency Comment Spec In Lab Cathie Venegas MD CHEMISTRY ORDERAB LES Performing Organization Address [facility] Co de Phone Number BRADLEY FONSECAENNIUM [...] MD CHEMISTRY ORDERAB LES Performing Organization Address [facility] de Phone Number [facility] FONSECAENNIUM * TSH (03/29/2014 3:19 AM EDT) Thyroid Stimulating Hormone 0.62 0.27 - 4.20 mcIU/mL CERNER MILLENNIUM Blood specimen (specimen) 03/29/2014 3:19 AM EDT 03/29/2014 3:25 AM EDT Narrative Resulting Agency Comment Spec In Lab Cathie Venegas MD CHEMISTRY ORDERAB LES Performing Organization Address [facility] Co de Phone Number BRADLEY FONSECAENNIUM * APTT (03/29/2014 3:19 AM EDT) Partial Thromboplastin Time 27 25 - 35 sec CERNER MILLENNIUM Comment: Recommended therapeutic PTT range for full dose unfractionated heparin is 80-114 seconds. Blood specimen (specimen) 03/29/2014 3:19 AM EDT 03/29/2014 3:25 AM EDT Narrative Resulting Agency Comment Spec In Lab Cathie Venegas MD HEMATOLOGY ORDERA BLES Performing Organization Address [facility] de Phone Number BR[facility]LEY HESTER * Prothrombin Time (03/29/2014 3:19 AM EDT) Prothrombin Time 12.7 12.5 - 15.5 sec CERWYATT FONSECAENNIUM Comment: [facility] Transfusion Committee Guidelines: INR less than 2.0, [...] MD HEMATOLOGY ORDERA BLES Performing Organization Address [facility] Phone Number BR[facility]LEY HESTER * Phosphorus (03/29/2014 3:19 AM EDT) Phosphorus 2.6 2.5 - 4.5 mg/dL CERWYATT FONSECAENNIUM Blood specimen (specimen) 03/29/2014 3:19 AM EDT 03/29/2014 3:25 AM EDT Narrative Resulting Agency Comment Spec In Lab Cathie Venegas MD CHEMISTRY ORDERAB LES Performing Organization Address [facility] de Phone Number [facility] HESTER * (ABNORMAL) [...] of Diabetes Mellitus, Position Statement from the [place] Diabetes Association. ??Diabetes Care, Volume 33, Supplement 1, Jun 2009 Blood Urea Nitrogen 23(H) 8 - 18 mg/dL CERNER MILLENNIUM Creatinine 0.74 0.70 - 1.20 mg/dL CERNER MILLENNIUM Comment: Please note that the pediatric reference intervals supplied above were not validated at [facility]. Results from pediatric patients should be interpreted [...] the following links into your internet browser. [email or web address] Blood specimen (specimen) 03/29/2014 3:19 AM EDT 03/29/2014 3:25 AM EDT Narrative Resulting Agency Comment Spec In Lab Cathie Venegas MD CHEMISTRY ORDERAB LES Performing Organization Address [facility] Phone Number [facility] * (ABNORMAL) POCT Glucose (03/29/2014 3:06 AM EDT) Glucose, POC 362(H) 60 - 199 mg/dL CERWYATT MILLENNIUM Comment: Supplemental ranges: <140 mg/dL before meals <180 mg/dL all other times of the day Blood specimen (specimen) 03/29/2014 3:06 AM EDT 03/29/2014 3:06 AM EDT Cathie Venegas MD POINT OF CARE CHANCE T ORDERABLES Performing Organization Address [facility] Phone Number BR[facility]LEY HESTER documented in [...] than 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 See Bolus dosing guidance for aPTT values [...] 0826 (Given - Provider: Kimberly Mejias, KRIS) insulin aspart (novoLOG) VIAL injection 1-10 [...] Zepeda, KRIS)0400 (Not Given - Provider: Natalie Zepeda RN - Reason: Patient/family refused)0751 (Given - [...] Kelly Shelley RN)1009 (Stopped - Provider: Liana Haegn RN) heparin 25,000 units in dextrose 5% [...] than 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
--- OUTSIDE RECORDS SUMMARY | 2024-02-24 19:41 | XMS_ITS | Referral Summary ---
Author Organization [facility] Address [address] [place] [address] Care Team Providers Care Training And Documentation Specialist Name Role Phone Unknown, Provider Primary Care Provider [phone] Social History Tobacco Use Types Packs/Day Years Used Date Smoking Tobacco: Never Assessed Sex and Gender Information Value Date Recorded Sex Assigned at Not on file Gender Identity Not on file Sexual Orientation Not on file Plan of Treatment Not on file Care Teams Training And Documentation Specialist Relationship Specialty Start Date End Date Unknown, Provider, PCP - General 05/21/10
--- OUTSIDE RECORDS SUMMARY | 2024-02-24 19:41 | XMS_ITS | Clinical Summary ---
Author Organization [facility] Address [address] [place] [address] Care Team Providers Care Refractory Furnace Designer Name Role Phone Unknown, Provider Primary [...] Risk Screening 2013 COVID-19 Vaccine ( season) 2024 Care Teams Refractory Furnace Designer Relationship Specialty Start Date End Date Unknown, Provider, PCP - General 05/21/10
--- OUTSIDE RECORDS SUMMARY | 2024-02-24 19:41 | XMS_ITS | Encounter Summary ---
Author Organization [facility] Address [address] [place] [address] Care Team Providers Care Family Intervention Specialist Name Role Phone Unknown, Provider Primary Care Provider [phone] Encounter Details Date Type Department Care Team (Late st Contact Info) Description 07/09/2020 Lab Requisition [facility] Pathology & Laboratory Medicine - [facility] [address] [place] [address] Outr Resulting Lab, Provider Social History Tobacco [...] Outr Resulting Lab MICROBIOLOGY - GENERAL ORDERABLES [facility] [address] [place] [address] * COVID-19 TESTING (07/08/2020 22:15 EST) COVID-19 rt-PCR Result Negative Negative 07/09/2020 21:11 EST [facility] Comment: This test has [...] history, and epidemiological information. Performed on the [employer]tr[employer] Fusion instrument Performing Lab [place] [facility] Lab 07/09/2020 21:11 [facility] Swab 07/08/2020 22:1 5 EST 07/09/2020 15:51 EST Provider Outr Resulting Lab MICROBIOLOGY - GENERAL ORDERABLES [facility] [address] [place] [address] documented in this encounter Visit Diagnoses Not on filedocumented in this encounter Care Teams Family Intervention Specialist Relationship Specialty Start Date End Date Unknown, Provider, PCP - General 05/21/10 documented as of this encounter
[2024-02-24] MEDS: dilTIAZem 25 MG/5 ML VIAL 20 MG IVP (20:19)
[2024-02-24 20:35] LABS: Troponin I < 50 ng/L (< or =60)
[2024-02-24] MEDS: Nystatin POWDER 15 GM JAR TP (21:54)
[2024-02-24] MEDS: dilTIAZem CD 120 MG CAPCR PO (22:35)
--- NOTE | 2024-02-24 23:03 | W.EDPROG ---
Date of service: 02/24/24 Time of Service: 23:03 Medical Decision Making This patient was signed out to me. Please see previous notes for H&P and initial eval. In brief, 73yo pt with mechanical fall from standing. Did begin to feel palpitations during EMS transport and found to be in afib RVR (has a hx of this). Given IV dilt with normalization of heart rate, trauma workup negative and planned for discharge home however after IV taken out returned to RVR; given home dose PO diltazem however HR remains 130's-140's. Plan to replace IV, given dose of IV lopressor (on metop at home); when HR stable would discharge home. On reassessment pt is nontoxic appearing, denies symptoms, HR in 90's. Nursing triage note stated pt had episode of syncope with unknown downtime (this hx was reportedly from EMS). I discussed with patient to clarify whether this was a mechanical fall or a syncopal event; she states to me that she felt everything go black and then fell, waking on the ground. Does not think she tripped on anything. No chest pain or shortness of breath at any point. Prior workup reviewed, labs overall reassuring at/near baseline with no indication of provoking factors for RVR and pt denies infectious symptoms. BNP is somewhat elevated however no clinical signs of heart failure and no respiratory distress. Holton Syncope Risk Score 3, medium risk. Given advanced age, known CHF, described syncopal event with unclear prodromal symptoms, warrants overnight observation and echo in the morning. Discussed with [facility] hospitalist Dr. Borrero; pt accepted to medicine service. Awaiting admission orders. Reviewed code status with patient, she confirms full code at this time. Lab Data Lab results reviewed: Yes I reviewed the patient's lab results. Quality:[facility] Health Related Social Needs: No Data to Display Sign Out Sign Out Data: Sign Out Comment: Patient was seen with mechanical fall on thinners- no injury with myers-scan Serial trops negative Was in AF w RVR, was given IV dilt, passed ambulatory trial, returned to RVR while awaiting RCT. Remaining tachy in 150's, was given PO 120mg dilt at that time. Getting re-IV, 5mg IV lopressor, +/- PO doses after re-eval. Last updated by Cullen Hill PA at 02/24/24 22:56 Discharge Plan Disposition Patient Disposition: Admit to [facility] Condition: Stable Discharge Details Clinical Impression: Syncope, Atrial fibrillation with rapid ventricular response, Fall Primary Care Provider: Dean Camilo ED Provider: Alicia Russell Home Meds and New Rx's Prescriptions: No Action nystatin 100,000 unit/gram powder 1 applic Topical BID PRN (Reason: itching) Qty: 60 11RF Rx Instructions: Apply to abdominal fold and under breasts. diltiazem HCl 120 mg capsule,extended release 24hr 120 mg PO DAILY Jardiance 10 mg tablet 10 mg PO DAILY insulin lispro [Humalog KwikPen Insulin] 100 unit/mL insulin pen See Rx Instructions SUBCUT QMEALS Patient Comments: INJECT 12 UNITS SUBCUTANEOUSLY DIRECTED WITH MEALS Rx Instructions: 12 units in AM and 6 units PM subcutaneously with meals; (DME) Depend Underwear For Women Lrg Misc See Rx Instructions .Route Qty: 100 11RF Rx Instructions: Depends pull up large lisinopril 10 mg Tablet 10 mg PO DAILY insulin glargine [Lantus Solostar U-100 Insulin] 100 unit/mL (3 mL) Insulin Pen 20 unit subcut HS Qty: 15 1RF metoprolol succinate 100 mg tablet extended release 24 hr 100 mg PO DAILY Qty: 0 0RF Xarelto 15 mg Tablet 15 mg PO DAILY magnesium oxide [MagOx] 400 MG tablet 400 mg PO DAILY Qty: 30 0RF metformin 1,000 mg tablet 1,000 mg PO BID Qty: 60 0RF omeprazole 20 MG capsule,delayed release(DR/EC) 20 mg PO DAILY Qty: 30 0RF furosemide 20 mg tablet 20 mg PO DAILY Qty: 30 0RF Patient Comments: pt unsure if they are taking this medication metformin 500 mg tablet atorvastatin 80 mg tablet ciclopirox 0.77 % cream TOPICAL Patient Comments: APPLY TO AFFECTED AND SURROUNDING AREAS OF SKIN TOPICALLY TWO TIMES A DAY IN THE MORNING AND EVENING aspirin [Children's Aspirin] 81 mg Tablet,Chewable 81 mg PO DAILY Qty: 0 0RF atorvastatin 20 mg tablet 80 mg PO HS nystatin 100,000 unit/gram powder 1 applic topical BID Qty: 60 0RF Discharge Instructions Instructions: Preventing Falls ED, Atrial Fibrillation and Atrial Flutter ED Additional Instructions: You were seen in the emergency department for your mechanical fall at home, you stated you had some right hip as well as a headache and some neck pain. We performed CT scans from your head through your pelvis and found no acute injuries. You have a stable L1 compression fracture from an old injury. As we discussed, there was a lytic lesion on your C4 vertebrae. You do state that you have had skin cancer in the past please follow-up with your primary care provider in investigating this issue. There is no acute bleeding, no intracranial bleeding, no acute fractures and you did passed an ambulatory trial here in the department, we did give you a smaller dose of your at home atrial fibrillation medicine called diltiazem by IV which resolved your atrial fibrillation with mild rapid ventricular response in the 120s to 130s. You were rate controlled on discharge and had some food. Please take the at home medications that you missed today once you arrive home including your diltiazem. Please do not hesitate to return to the emergency department for any acute concerns like dizziness, further falls, chest pain, shortness of breath, confusion, fever, abdominal. Referrals: Dean Camilo [Primary Care Provider] -
[2024-02-24] MEDS: Metoprolol 5 MG/5 ML VIAL IVP (23:10)
--- NOTE | 2024-02-24 23:47 | HPE_ITS ---
Date of service: 02/24/24 Time of Service: 23:47 Assessment and Plan Assessment and plan (1) Syncope: Start date: 02/24/24 Status: Acute Assessment and plan: This is a 73-year-old lady who had a syncopal episode at home most likely secondary to atrial fibrillation with rapid ventricular response. She had no new injuries from her fall but was having tachycardia upon admission which was slowly responding to reinitiation of IV diltiazem and then oral potassium. Because of her fall and continued tachycardia she will be observed with trending lab and follow-up echocardiogram in the morning if possible. If echocardiogram is not available and her rhythm is controlled she could be discharged home for follow-up outpatient echocardiogram. She is a full code. Qualifiers: Syncope type: unspecified Qualified Code(s): R55 - Syncope and collapse (2) Atrial fibrillation with rapid ventricular response: Start date: 02/24/24 Status: Acute Assessment and plan: Patient has recurrent atrial fibrillation with rapid ventricular response of appropriate medical therapy which was suggested by her daughter after discharge from [facility] in early November 2023. She is now being reinitiated on diltiazem with metoprolol being advanced as needed. Blood pressure may limit this treatment. Should avoid hypotension and overtreatment because of her syncopal episode. (3) CHF (congestive heart failure): Assessment and plan: Continue outpatient medical therapy and follow-up labs. Qualifiers: Heart failure chronicity: chronic Heart failure type: diastolic Q ualified Code(s): I50.32 - Chronic diastolic (congestive) heart failure (4) Diabetes mellitus type 2 in obese: Status: Chronic Assessment and plan: Patient will be on glucometers before meals and at bedtime with sliding scale corrective insulin coverage. Her syncopal episode does not appear to have been from hypoglycemia. History of Present Illness History of Present Illness Chief Complaint: Mechanical fall at home with possible syncope. Narrative: This is a 73-year-old female patient who had recent hospitalization for 1 month at [facility] for sepsis with HHNC and atrial fibrillation with rapid ventricular response having her medications modified at that time. She was discharged 20 November and her daughter was taking care of her at her own home giving her her medications. The daughter stopped diltiazem which was prescribed by her physicians with consulting the physicians. Patient has been off diltiazem up to this point and when she was seen in the ED she had a rapid ventricular sponsor atrial fibrillation off diltiazem which did respond to IV diltiazem. She did receive her dose of long-acting diltiazem late on the day of admission and was still tachycardic at the time I evaluated her. Her troponins were negative and she was to be observed overnight with her blacking out at home with syncope prior to admission with imaging not showing any injuries that were new. She did have a compression fracture of her lumbar spine. She denies any palpitations or chest pain at the time I interviewed her. She did have palpitations in transport to the ED from home. Her daughter was not available during my interview. Patient does need an updated echocardiogram and observation with reinitiation of her medical therapy with risk of fall with her syncopal episode. This most likely was cardiac in nature. She does look forward to living alone and doing her own medications but does appear to have some developmental delay and may need assistance. She has been a DNR DNI in the past but recently has been a full code with review. Review of Systems Narrative: 13 point review of systems otherwise unrevealing or stable. Patient is chronically overweight and chronically has peripheral edema with skin changes over her ankles. [facility] All Active Problems (Updated 02/25/24 @ 01:29 by Sunil Borrero) Fall (Acute) Syncope (Chronic) Syncope (Acute) Atrial fibrillation with rapid ventricular response (Acute) Diabetic hyperosmolar non-ketotic state (Acute) AMS (altered mental status) (Acute) Acute UTI (Acute) Acute hyperglycemia (Acute) Full code status (Acute) Advance care planning (Acute) Brain TIA (Acute) Vitamin B12 deficiency (Acute) CVA (cerebral vascular accident) (Chronic) Impaired instrumental activities of daily living (Acute) DNR (do not resuscitate) (Acute) Loneliness (Acute) Chronic kidney disease (CKD) (Chronic) Venous stasis dermatitis (Acute) Decreased activities of daily living (ADL) (Acute) Need for home health care (Acute) Nephrolithiasis (Chronic) Sacral decubitus ulcer, stage II (Acute) Wound of right lower extremity (Acute) Hyperglycemia (Acute) Trochanteric bursitis, right hip (Acute) Right ankle sprain (Acute) Hip pain, right (Acute) GI bleed (Acute) Fracture, lumbar vertebra, compression (Acute) PSVT (paroxysmal supraventricular tachycardia) (Acute) Urinary retention (Chronic 03/31/16) Poorly controlled diabetes mellitus (Chronic) Transient neurologic deficit (Acute) Fungal dermatitis (Acute) Atrial flutter (Acute) Vaginal bleeding, abnormal (Acute) Atrial fibrillation and flutter (Chronic) Diabetes mellitus type 2 in obese (Chronic) Fracture of femoral neck, right (Acute) Retention, urine (Acute) Medical History Infestation by bed bug Hx of malignant melanoma GERD (gastroesophageal reflux disease) H/O menorrhagia Supraventricular tachycardia History of traumatic fracture of hip Unsteady gait Hard of hearing Vision changes Anemia 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 Palliative care encounter Pulmonary hypertension Multiple rib fractures involving four or more ribs Hypertension S/P right hip fracture TIA (transient ischemic attack) Hyperlipidemia Atrial fibrillation CHF (congestive heart failure) LVEF 50-55%, diastolic dysfunction Diabetes Cataracts, bilateral Surgical History History of bilateral cataract extraction History of suprapubic catheter Status post right hip replacement Family History Other Diabetes Heart disease Hyperlipidemia Hypertension Stroke Social History Smoking/Tobacco Use Status: Former Tobacco Use Smoking risk assessment performed?: Yes Alcohol Intake: never Drug use: Never Substance use type: does not use Household members: none Housing: apartment Do you feel safe at home: Yes Do you feel safe in your relationship?: Yes Additional Social history: Lives alone. [address] Does not drive. Meds Allergies and Home Medications Allergies Allergy/AdvReac Type Severity Reaction Status Date / Time trazodone AdvReac Intermediate NIGHTMARES Verified 02/24/24 17:09 Home Medications ?Medication ?Instructions ?Recorded ?Confirmed ?Type lisinopril 10 mg tablet 10 mg PO DAILY 05/12/19 02/25/24 History nystatin 100,000 unit/gram topical 1 applic topical BID PRN itching 10/31/20 02/25/24 Rx powder #60 grams insulin glargine 100 unit/mL (3 20 unit (0.2 mL) subcut HS #15 mL 11/27/20 02/25/24 Rx mL) subcutaneous pen (Lantus Solostar U-100 Insulin) metoprolol succinate 100 mg 100 mg PO DAILY #0 tabs 11/27/20 02/25/24 Rx tablet,extended release 24 hr rivaroxaban 15 mg tablet (Xarelto) 15 mg PO DAILY 07/31/21 05/12/23 History furosemide 20 mg tablet 20 mg PO DAILY #30 tabs 08/02/21 02/25/24 Rx magnesium oxide 400 mg (241.3 mg 400 mg PO DAILY #30 tabs 08/02/21 02/25/24 Rx magnesium) tablet (MagOx) omeprazole 20 mg capsule,delayed 20 mg PO DAILY #30 caps 08/02/21 02/25/24 Rx release diltiazem HCl 120 mg 120 mg PO DAILY 10/16/21 02/25/24 History capsule,extended release 24 hr empagliflozin 10 mg tablet 10 mg PO DAILY 10/16/21 02/25/24 History (Jardiance) insulin lispro 100 unit/mL See Rx Instructions subcut QMEALS 12/17/21 02/25/24 History subcutaneous pen (Humalog KwikPen (U-100) Insulin) diaper,brief,adult,disposable #100 ea 09/30/22 05/12/23 Rx (Depend Underwear For Women Large) aspirin 81 mg chewable tablet 81 mg PO DAILY #0 tabs 12/31/22 02/25/24 Rx (Children's Aspirin) atorvastatin 20 mg tablet 80 mg PO HS 01/26/23 02/25/24 History nystatin 100,000 unit/gram topical 1 applic topical BID #60 grams 05/12/23 02/25/24 Rx powder atorvastatin 80 mg tablet 80 mg PO DAILY 02/25/24 02/25/24 History ciclopirox 0.77 % topical cream applic topical 02/25/24 History metformin 500 mg tablet 500 mg PO BID 02/25/24 02/25/24 History Exam Narrative Exam Narrative: General: Patient appears appropriate for age, very talkative with some dysarthria and appearance of developmental delay. She is alert and oriented x 3. She is in no acute distress. HEENT: Normocephalic, course and facial features. Eyes with pupils equal and reactive to light symmetrically, extraocular movement intact and sclera anicteric. Oropharynx with moist mucosa. Fair dentition. Neck: Supple without JVD. Back: Kyphotic without CVA tenderness. Lungs: Fair aeration and clear to auscultation percussion. No focalizing rales or rhonchi. No expiratory wheeze. Heart: Irregular irregular rhythm with tachycardia at the time of my exam without appreciable murmur or gallop. Breast: Exam deferred. Abdomen: Obese contour, soft nontender to palpation no palpable hepatosplenomegaly. Bowel sounds positive all quadrants. No guarding or rebound. Genitalia/rectal: Exam deferred. Patient does have a suprapubic catheter. Extremities: Clubbing or cyanosis. Chronic nonpitting edema ankles and feet with atrophy over the ankles and erythema without open ulcerations. Good cap refill. Skin: Normal color except over lower extremities, warm and dry. Neuro: Cranial nerves II to XII gross intact, no focal motor deficits. No tremor. Psych: Slightly anxious affect, normal mood. No abnormal thought processes. Remote and recent memory grossly intact. Results Imaging Imaging Studies: EXAM: CT THORACIC LUMBAR SPINE REC CLINICAL HISTORY: recons- trauma TECHNIQUE: COMPARISON: CT CT ABDOMEN PELVIS WO from 05/12/[address] CHEST/ABD/PEL W from 02/24/2024 FINDINGS: THORACIC SPINAL CANAL: No fractures in the thoracic vertebrae. No listhesis. No acute compromise of the thoracic spinal canal. No facet malalignment. LUMBOSACRAL SPINAL CANAL: There is a stable appearing compression fracture of L1 which is unchanged from prior CT scan of 05/04/2023. There are no other lumbar vertebral fractures. There is stable mild anterolisthesis of L4 upon L5 again noted related to facet degenerative changes. There is no disc space narrowing at this level nor other levels. IMPRESSION: No acute fractures in the thoracic and lumbar spine. There is a stable appearing compression fracture of L1 which is unchanged from 05/12/2023. Also stable mild anterolisthesis L4 upon L5. EXAM: CT CHEST/ABD/PEL W CLINICAL HISTORY: fall on thinners, R hip abd pain. TECHNIQUE: Imaging Protocol: Axial computed tomography images with coronal and sagittal reformatted images were created and reviewed CONTRAST MATERIAL: Intravenous: Omnipaque 350 Contrast volume:100 ml Oral: None COMPARISON: CT CT ABDOMEN PELVIS WO from 05/12/2023 FINDINGS: CHEST: LUNGS: No infiltrates nor evidence of lung contusion or pleural effusion or pneumothorax. No lung masses.. MEDIASTINUM: No evidence of sternal fracture nor mediastinal hematoma. Visualized thyroid unremarkable.No incidental hilar nor mediastinal adenopathy. No axillary adenopathy. CARDIAC: Heart size is normal. There is no pericardial effusion.Diameter of the ascending thoracic aorta is enlarged at 3.9 cm. Otherwise intact with no evidence of dissection. The diameter of the mid thoracic arch and descending thoracic aorta are normal. OSSEOUS: There is a compression fracture of L1 vertebral body which is unchanged from CT scan of April 2023. No new fractures evident.. ABDOMEN: There is no ascites. No evidence of mesenteric nor bowel wall hematoma. LIVER: Intact. Normal size. No laceration or subcapsular hematoma. No lesions. No dilated intrahepatic ducts. GALLBLADDER/BILIARY: No obvious gallbladder pathology. CBD is not dilated. PANCREAS: No evidence of pancreatic mass nor dilatation of the pancreatic duct. SPLEEN: Spleen size is normal. There is no splenic laceration. There is a E well-defined 1.7 x 1.7 cm probable cyst in the anterior spleen. Better evident than on the prior noninfused study 2022. splenic and portal veins are patent. ADRENALS: There are no significant adrenal masses. KIDNEYS: No evidence of renal laceration or subcapsular hematomas. No significant focal findings in the left kidney there is a benign cyst in the inferior pole of the left kidney measuring 4 x 3.5 cm, unchanged from April 2023. Smaller benign cyst in the superior pole of the left kidney noted measuring up to 1.5 cm, also unchanged. These benign cysts do not require further workup. No ominous solid renal masses. No calculi. No hydronephrosis nor hydroureter.. ABDOMINAL AORTA: Abdominal aorta is intact and there is no evidence of aneurysm. Aortic bifurcation is intact as are the aortoiliac segments. LYMPH NODES: There is no retroperitoneal nor paraaortic adenopathy. ABDOMINAL WALL: No evidence of significant anterior abdominal wall nor inguinal hernia. There is a subcutaneous density in the midline pannus measuring 2.5 x 2.2 cm, slightly right of center. This is unchanged from April 2023. There is some overlying skin thickening. GI: There is no evidence of bowel obstruction. PELVIS: LYMPH NODES: There is no intrapelvic nor inguinal adenopathy. GI: No evidence of appendicitis.No evidence of sigmoid diverticulitis. URINARY BLADDER: There is a suprapubic catheter in place again noted. Urinary bladder is collapsed around the catheter. REPRODUCTIVE: Uterus is partially obscured by beam hardening artifact from right hip prosthesis. Appears unremarkable. No obvious abnormal adnexal masses identified and no free fluid. OSSEOUS: There is a right hip prosthesis again noted. L1 compression fractures unchanged from prior study. Multilevel facet arthropathy noted. IMPRESSION: 1. No acute trauma findings in the chest. Diameter of the thoracic aorta is slightly prominent measuring 3.9 cm. No dissection evident. 2. There is an L1 compression fracture which is not acute. It appears unchanged from CT scan of 05/12/2023. 3. No significant trauma sequelae in the abdomen and pelvis. 4. There is a 1.7 x 1.7 cm benign cyst in the anterior aspect of the spleen. Spleen size is normal. 5. There is a suprapubic catheter in the urinary bladder. The bladder is not distended. EXAM: CT HEAD CERVICAL SPINE WO CLINICAL HISTORY: fall at home, on thinners, head neck pain. TECHNIQUE: Imaging Protocol: Axial computed tomography images with coronal and sagittal reformatted images were created and reviewed COMPARISON: No exams were available for comparison FINDINGS: BRAIN: There are no skull fractures nor fluid in the visualized paranasal sinuses. There is no evidence of intracranial hemorrhage, mass effect, or shift of midline structures. There are no extra-axial fluid collections. The ventricles are not enlarged or shifted and there is no blood within the ventricular system nor within the basal cisterns. CERVICAL SPINE: There is no evidence of fracture nor listhesis. No significant prevertebral soft tissue swelling. C1 arch and odontoid process appear unremarkable. Disc spaces are well maintained. Facet joints appear unremarkable. No obvious degenerative changes. There is no significant facet joint malalignment. However, there is an abnormal lucent area in the left side of the C 4 vertebral body and pedicle which appears possibly lytic, this measuring 11 mm wide by 9 mm AP by 7 mm craniocaudal. IMPRESSION: No acute intracranial findings on this noninfused CT scan of the brain. No evidence of acute cervical spine fracture, malalignment, nor acute compromise of the cervical spinal canal. Incidentally noted is an abnormal lucent area in the left side of C4 vertebral body measuring 11 x 9 x 7 mm. This may be lytic. Date: 07/15/19 EXAM: Comprehensive 2D, Doppler, and color-flow Echocardiogram Patient Location: In-Patient [facility] [employer] Ceramist: Mindi Ahmadi RDCS (AE) Rhythm: afib tachy Indications: TIA, bubble study please Conclusion Left Ventricle : The left ventricle is normal size. The left ventricular systolic function is normal. Mild concentric ventricular hypertrophy. There is normal LV segmental wall motion. Diastolic function could not be determined due to atrial fibrillation but there is evidence of elevated filling pressures. LVEF is estimated to be 50-55%. Right Ventricle : The right ventricle is normal size. The right ventricular systolic function appears normal. Atria : Left atrium is mildly dilated. The right atrium size is normal. There is no evidence of PFO/ASD on color Doppler. Bubble study was not performed. Aortic Valve : Aortic valve is trileaflet. The Aortic valve is sclerotic. Mild aortic regurgitation. There is no aortic valvular stenosis. Mitral Valve : Mitral valve leaflets are mildly thickened, but seem to open well. Mild mitral annular calcification. cordal calcifications. Moderate mitral regurgitation. Tricuspid Valve : The tricuspid valve is normal in structure. Mild to moderate tricuspid regurgitation. There is no prior echocardiogram available for comparison. Labs 02/25/24 05:58 02/25/24 05:58 Labs: Laboratory Results - last 24 hr 02/24/24 02/24/24 02/24/24 17:16 17:31 19:14 WBC 9.47 RBC 4.90 Hgb 11.1 L Hct 38.7 MCV 79 L MCH 22.7 L MCHC 28.7 L RDW 17.8 H Plt Count 397 MPV 9.8 Immature Gran % 0.4 Neutrophils % 77.1 Lymphocytes % 12.6 Monocytes % 8.4 Eosinophils % 1.0 Basophils % 0.5 Nucleated RBC % 0.0 Absolute Neutrophils 7.30 H Absolute Lymphocytes 1.19 L Absolute Monocytes 0.80 Absolute Eosinophils 0.09 Absolute Basophils 0.05 VBG Lactate 1.3 Sodium 136 Potassium 4.3 Chloride 102 Carbon Dioxide 26.0 Anion Gap 8.0 BUN 12 Creatinine 1.0 Est GFR (CKD-EPI 2020) 58.75 Glucose 266 H Calcium 9.6 Total Bilirubin 0.51 AST 17 ALT 17 Alkaline Phosphatase 78 Creatine Kinase 106 Troponin I High Sens < 50 < 50 NT-Pro-B Natriuret Pep 1531 H Total Protein 8.0 Albumin 3.1 L Amylase 49 Lipase 120 H ABO/Rh A Positive Antibody Screen NEGATIVE 02/24/24 20:07 WBC RBC Hgb Hct MCV MCH MCHC RDW Plt Count MPV Immature Gran % Neutrophils % Lymphocytes % Monocytes % Eosinophils % Basophils % Nucleated RBC % Absolute Neutrophils Absolute Lymphocytes Absolute Monocytes Absolute Eosinophils Absolute Basophils VBG Lactate Sodium Potassium Chloride Carbon Dioxide Anion Gap BUN Creatinine Est GFR (CKD-EPI 2020) Glucose Calcium Total Bilirubin AST ALT Alkaline Phosphatase Creatine Kinase Troponin I High Sens < 50 NT-Pro-B Natriuret Pep Total Protein Albumin Amylase Lipase ABO/Rh Antibody Screen Last Vital Signs Temp 36.1 C L 02/24/24 16:59 Pulse 126 H 02/24/24 23:10 Resp 22 02/24/24 23:06 BP 156/73 H 02/24/24 23:10 Pulse Ox 95 02/24/24 23:00 Time Spent Time spent with Patient: >75 minutes Time was spent: preparing to see the patient(eg.review tests), obtaining and/or reviewing separately otained hiistory, ordering medications,tests, procedures, referring, communicating with other health healthcare advisory services manager, indepentently interpreting results, counseling the patient and care coordination
[2024-02-25] VITALS (145 sets, daily range): BP systolic 107–157; BP diastolic 55–101; PULSE 71–125; RESP 13–29; TEMP 36.6; O2SAT 86–97
[2024-02-25] MEDS: Metoprolol 50 MG TAB PO ×4 (01:29→21:25)
--- NOTE | 2024-02-25 03:25 | NUR.NOTE ---
Nursing Note: O2 sat dropping to 86%. placed patient on 2L NC. O2 sat 96-97%
[2024-02-25 06:04] LABS: HCT 34.4 % (36.0-46.0); HGB 9.9 g/dL (11.2-15.7); MCHC 28.8 % (32.0-36.0); MCV 80 fL (80-95); MPV 9.6 fL (8.0-11.0); Platelet Count 362 10^3/uL (130-400); RBC 4.31 10^6/uL (3.93-5.22); RDW 17.6 % (11.7-14.6); RDW-SD 51.2 fL; WBC 7.57 10^3/uL (4.4-10.8)
[2024-02-25 06:26] LABS: ALT 12 U/L (14-59); AST 14 U/L (15-37); Albumin 2.5 g/dL (3.4-5.0); Alkaline Phosphatase 66 U/L (46-116); Anion Gap 8.7 mmol/L (3-11); BUN 11 mg/dL (7-18); Bilirubin, Total 0.37 mg/dL (0.2-1.0); CO2 25.3 mmol/L (21.0-32.0); Calcium 8.7 mg/dL (8.5-10.1); Chloride 100 mmol/L (98-107); Estimated GFR 58.75 (mL/min/1.73m2); Glucose 263 mg/dL (74-106); Magnesium 1.4 mg/dL (1.8-2.4); Potassium 4.1 mmol/L (3.5-5.1); Sodium 134 mmol/L (136-145); Total Protein 6.9 g/dL (6.4-8.2); Troponin I < 50 ng/L (< or =60)
[2024-02-25 06:49] LABS: TSH (W/Ref FT4) 0.63 uIU/mL (0.36-3.74)
[2024-02-25] MEDS: Omeprazole 20 MG CAPCR PO (07:36)
[2024-02-25] MEDS: Insulin Aspart 300 UNITS/3 ML PEN SC ×4 (08:10→21:30)
--- NOTE | 2024-02-25 08:39 | NUR.NOTE ---
diabetic breakfast provided Nursing Note:
[2024-02-25] MEDS: Normal Saline Flush 10 ML SYR IVP ×3 (08:45→18:36)
[2024-02-25] MEDS: Empaglifozin 10 MG TAB PO (08:46)
[2024-02-25] MEDS: Lisinopril 10 MG TAB PO (08:46)
[2024-02-25] MEDS: Magnesium Oxide 400 MG TAB PO (08:47)
[2024-02-25] MEDS: dilTIAZem CD 120 MG CAPCR PO (08:47)
[2024-02-25] MEDS: Aspirin 81 MG CHEW PO (08:48)
[2024-02-25] MEDS: Furosemide 20 MG TAB PO (08:48)
[2024-02-25] MEDS: Nystatin POWDER 15 GM JAR TP ×2 (08:49→21:28)
--- NOTE | 2024-02-25 09:30 | DI.US_ITS ---
APPROVED REPORT EXAM: Comprehensive 2D, Doppler, and color-flow Echocardiogram Patient Location: ER Room/Bed: 7 General Expeditor: Christelle Curran RDCS (AE) Indications: Syncope with PAF/RVR Other Information Study Quality: Adequate. Technically limited study due to body habitus, inability to position patient exam done bedside er. Conclusion Normal left ventricular wall thickness and chamber size. Ejection fraction is 65%. Wall motion is n ormal Mildly enlarged right ventricle with preserved systolic function Both atria are mildly dilated Aortic valve is trileaflet with mild regurgitation Mild mitral annular calcification. Trace to mild mitral regurgitation Normal tricuspid valve with mild regurgitation. Estimated right ventricular systolic pressure is 59 mmHg Ascending aorta measures 3.6 cm Wall motion Left Ventricle The left ventricle is normal size. The left ventricular systolic function is normal. The left ventric ular ejection fraction is within the normal range. There is normal left ventricular wall thickness. T here is normal LV segmental wall motion. There is no ventricular septal defect visualized. LVEF is 65 %. Right Ventricle Right ventricle is mildly dilated. The right ventricular systolic function is normal. Atria Left atrium is mildly dilated. Right atrium is mildly dilated. The interatrial septum is intact with no evidence for an atrial septal defect. Aortic Valve The aortic valve is normal in structure. Aortic valve is trileaflet. There is no aortic valvular sten osis. mild aortic regurgitation. Mitral Valve Mild mitral annular calcification. No evidence of mitral valve stenosis. Trace to mild mitral regurgi tation. Tricuspid Valve The tricuspid valve is normal in structure. There is no tricuspid valve stenosis. Mild tricuspid reg urgitation. The RVSP is 59.5_ mmHg. Pulmonic Valve Pulmonic valve is not well visualized. There is no pulmonic valvular stenosis. There is no pulmonic v alvular regurgitation. Great Vessels The aortic root is normal in size. The ascending aorta is mildly dilated. Aortic arch is not well vis ualized. IVC is normal in size and collapses >50% with inspiration. Pericardium There is no pericardial effusion. 2D Dimensions IVSD d PLAX 1.01 cm F: 0.6-1.0 Ao Root d 3.15 cm F: 2.7 - 3.3 LVPW d PLAX 1.04 cm F: 0.6 - 1.0 Ao Asc Diam d 3.60 cm F: 2.3 - 3.1 LVID d PLAX 4.20 cm F: 3.8 - 5.2 LVDs 3.03 cm F: 2.2 - 3.5 LV EF Teichholz 54.0 % FS 27.63 % LV EDV (Teich) 78.0 mL LV ESV (Teich) 35.8 mL Auto EF LV EDV A4C 87.6 mL LV EDV A2C 87.3 mL LV EDV BP 88.1 mL LV ESV A4C 40.1 mL LV ESV A2C 39.1 mL LV ESV BP 39.7 mL LVEF(%) A4C 54.2 % LVEF(%) A2C 55.2 % LVEF(%) BP 55.0 % LV SV A4C 47.5 ml LV SV A2C 48.1 ml LV SV BP 48.4 ml LV CO A4C 3.7 L/min LV CO A2C 3.9 L/min LV CO BP 3.8 L/min HR A4C 78.26 BPM HR A2C 80.68 BPM LV EDV Index (BP) LA Volume LA Length A4C 6.1 cm LA Length A2C 5.8 cm LA Area A4C s 23.16 cm2 LA Area A2C s 22.94 cm2 LA Vol A4C A-L 74.27 mL LA Vol A2C A-L 77.28 mL LA Vol Biplane A-L 78.0 mL LA Vol/BSA A4C A-L LA Vol/BSA A2C A-L LA Vol/BSA BP A-L 39.0 mL/m2 LA Vol A4C MOD 71.9 mL LA Vol A2C MOD 73.0 mL LA Vol BP MOD 74.5 mL RA Volume RA Area A4C 19.9 cm2 RA ESV A4C (A-L) 63.3mL RA Vol/BSA A4C A-L RA Length A4C 5.3 cm RA ESV A4C (MOD) 59.9mL LV Diastology MV E' medial 0.068 (>0.07 m/s) MV E Vmax 1.31 (0.4-1.3 m/s) MV E' lateral 0.077 (>0.1 m/s) Aortic Valve AoV Vmax 1.34 m/s LVOT Vmax 0.91 m/s AoV Peak Grad 33.5 mmHg LVOT Peak Grad 3.3 mmHg AoV Area (Vmax) 2.08 cm2 LVOT VTI 0.157 m AoV VTI 0.249 m LVOT Mean Grad 1.9 mmHg AoV Mean Alfredo. 1.02 m/s LVOT SV 47.96 mL AoV Mean Grad 4.4 mmHg LVOT Diam s 1.95 cm AoV Area (VTI) 1.93 cm2 AV Regurg Peak Gr. 7.18 mmHg Velocity Ratio 0.68 AR Decel Colbert 2.2m/sec2 AR DT 1791 msec AR PHT 519 msec AR Vmax 3.86 m/s Mitral Valve MV Vmax TIPS 1.32 m/s MV Mean Grad 2.5 (<2mmHg) MV Area PHT 3.68 cm2 MV VTI 0.263 m Pulmonary Valve PV Vmax 0.77 (0.5-1.5 m/s) RVOT Vmax 0.85 m/s PV Peak Grad 2.4 mmHg RVOT Peak Gr. 2.9 mmHg PV Mean Alfredo 0.51 m/s RVOT VTI 0.180 m PV Mean Grad 1.2 mmHg RVOT Mean Gr. 1.5 mmHg Tricuspid Valve RA Pressure 3.00 mmHg TR Vmax 3.76 m/s TV S' 0.12 m/s TR Peak Grad 56.4 mmHg RVSP (TR) 59.5 mmHg
[2024-02-25] MEDS: MAGNESIUM SULFATE 2 GM/50 ML BAG IVINF (14:14)
[2024-02-25] MEDS: Fluconazole 100 MG TAB 400 MG PO (14:15)
--- NOTE | 2024-02-25 14:49 | PHACLINREV_ITS ---
Pharmacy Admission Review Admission Clinical Review Admission Pharmacy Review: Syncope (Acute) Atrial fibrillation with rapid ventricular response (Acute) trazodone Adverse Reaction (Intermediate, Verified 02/24/24 17:09) [facility] Resuscitation Status Full Code Height 5 ft 6.5 in Weight 91.2 kg Comments Comments/Follow Ups: Follow up with nursing on home meds (Farxiga and Xarelto dosing). Pharmacy Admission Review Renal Dosing Renal Dosing: BUN 11 mg/dL (7-18) 02/25/24 05:58 Creatinine 1.0 mg/dL (0.55-1.02) 02/25/24 05:58 Medications needing adjustments: Reviewed (CrCl 55.82 mL/min) List of meds needing interventions: Current medications are okay Anticoagulation Anticoagulation: Hgb 9.9 g/dL (11.2-15.7) L 02/25/24 05:58 Hct 34.4 % (36.0-46.0) L 02/25/24 05:58 Plt Count 362 10^3/uL (130-400) 02/25/24 05:58 Creatinine 1.0 mg/dL (0.55-1.02) 02/25/24 05:58 DVT Prophylaxis: Intervened (home med list says 15mg daily but most recently fi lled for 20mg daily (02/23/24) at [facility]. Called nursing to confirm with patient. Waiting to hear back.) Medications: Rivaroxaban (15mg tablet) Relevant Labs Relevant Labs: Sodium 134 mmol/L (136-145) L 02/25/24 05:58 Potassium 4.1 mmol/L (3.5-5.1) 02/25/24 05:58 Chloride 100 mmol/L (98-107) 02/25/24 05:58 Magnesium 1.4 mg/dL (1.8-2.4) L 02/25/24 05:58 Electrolytes, C-Reactive P, ESR: Reviewed (Na 134, Mg 1.4 - repleting with IV infusion) DM Control DM Control: Glucose 263 mg/dL (74-106) H 02/25/24 05:58 Finger Stick Blood Glucose 297 1258 Finger Stick Blood Glucose 297 1130 Finger Stick Blood Glucose 248 0810 Finger Stick Blood Glucose 248 0750 Finger Stick Blood Glucose 248 0750 DM Control: Reviewed Insulin Dosing, Diabetic Medication: Has order for SS insulin and Jardiance Cardiac Review Cardiac Review: NT-Pro-B Natriuret Pep 1531 pg/mL (<300) H 02/24/24 17:16 Blood Pressure 114/55 1405 Blood Pressure 124/56 1101 Blood Pressure 131/87 1031 Blood Pressure 120/56 1001 Blood Pressure 138/67 0901 Blood Pressure 120/85 0831 Blood Pressure 147/69 0806 Blood Pressure 143/70 0731 Blood Pressure 122/64 0700 BP, HR, EF%: Reviewed (HR WNL) List meds needing interventions: Has orders for diltiazem 120mg CR daily, furosemide 20mg daily, lisinopril 10mg daily, metoprolol 50mg IR q6h and metoprolol 5mg IVP PRN QTc Review QTc: Reviewed (468 from 02/24/24) IV to PO Switch IV Medications: Reviewed (metoprolol PRN, magnesium infusion) Home Meds Home Med List reviewed: Intervened Relevent Home Meds Not ordered & why?: ciclopriox, glargine (has order for SS insulin), metformin (has order for SS insulin) Patient recently filled Farxiga and Xarelto 20mg daily but they are not on home med list. Reached out to nursing who is going to ask the patient. Waiting to hear back. Most likely is taking these given patient gets meds at [facility] (bubble packed). Current Meds Current Medication Order Review: Reviewed Comments Comments/Follow Ups: Follow up with nursing on home meds (Farxiga and Xarelto dosing).
--- NOTE | 2024-02-25 15:13 | W.PM.PROGNOT ---
Date of Service Date of service: 02/25/24 Time of Service: 15:13 Assessment and Plan Assessment and plan (1) Syncope: Status: Acute Assessment and plan: Referred to observation on telemetry. Echocardiogram pending Workup unrevealing thus far Qualifiers: Syncope type: unspecified Qualified Code(s): R55 - Syncope and collapse (2) Atrial fibrillation with rapid ventricular response: Status: Acute Assessment and plan: Rate is controlled Diltiazem resumed Fully anticoagulated on Xarelto (3) CHF (congestive heart failure): Assessment and plan: Appears euvolemic Continue furosemide, monitor intake and output, monitor daily weights, echocardiogram pending Qualifiers: Heart failure chronicity: chronic Heart failure type: diastolic Qualified Code(s): I50.32 - Chronic diastolic (congestive) heart failure (4) Diabetes mellitus type 2 in obese: Status: Chronic Assessment and plan: Diabetic diet blood sugar checks before meals and at bedtime with sliding scale coverage as needed Last hemoglobin A1c was greater than 13 (5) Beth infection: Status: Acute Assessment and plan: Will add oral Diflucan to nystatin powder (6) Urinary retention: Status: Chronic Assessment and plan: Chronic suprapubic catheter which will be changed out today Urinalysis is pending and may need additional change prior to discharge home if infected Discussed with Dr. Knight Subjective Subjective Patient reports: tolerating liquids well, tolerating a regular diet and afebrile Interval history since last seen: suprapubic catheter draining cloudy yellow urine skin folds with redness, excoriations, fungal infection Exam Narrative Exam Narrative: Chronically ill-appearing female older than stated age disheveled head is atraumatic eyes nonicteric noninjected oral mucosas slightly dry with poor dentition neck no JVD cardiovascular regular rate and irregular rhythm controlled atrial fibrillation on the monitor respirations even and unlabored Abdomen is benign suprapubic catheter intact draining cloudy yellow urine multiple skin folds with erythema and excoriation consistent with fungal infection Moves all extremities Objective Last Vital Signs Temp 36.1 C L 02/24/24 16:59 Pulse 71 02/25/24 14:05 Resp 19 02/25/24 14:05 BP 114/55 L 02/25/24 14:05 Pulse Ox 97 02/25/24 14:05 Laboratory Results - last 24 hr 02/24/24 02/24/24 02/24/24 17:16 17:31 19:14 WBC 9.47 RBC 4.90 Hgb 11.1 L Hct 38.7 MCV 79 L MCH 22.7 L MCHC 28.7 L RDW 17.8 H Plt Count 397 MPV 9.8 Immature Gran % 0.4 Neutrophils % 77.1 Lymphocytes % 12.6 Monocytes % 8.4 Eosinophils % 1.0 Basophils % 0.5 Nucleated RBC % 0.0 Absolute Neutrophils 7.30 H Absolute Lymphocytes 1.19 L Absolute Monocytes 0.80 Absolute Eosinophils 0.09 Absolute Basophils 0.05 VBG Lactate 1.3 Sodium 136 Potassium 4.3 Chloride 102 Carbon Dioxide 26.0 Anion Gap 8.0 BUN 12 Creatinine 1.0 Est GFR (CKD-EPI 2020) 58.75 Glucose 266 H Calcium 9.6 Magnesium Total Bilirubin 0.51 AST 17 ALT 17 Alkaline Phosphatase 78 Creatine Kinase 106 Troponin I High Sens < 50 < 50 NT-Pro-B Natriuret Pep 1531 H Total Protein 8.0 Albumin 3.1 L Amylase 49 Lipase 120 H TSH ABO/Rh A Positive Antibody Screen NEGATIVE 02/24/24 02/25/24 20:07 05:58 WBC 7.57 RBC 4.31 Hgb 9.9 L Hct 34.4 L MCV 80 MCH 23.0 L MCHC 28.8 L RDW 17.6 H Plt Count 362 MPV 9.6 Immature Gran % Neutrophils % Lymphocytes % Monocytes % Eosinophils % Basophils % Nucleated RBC % Absolute Neutrophils Absolute Lymphocytes Absolute Monocytes Absolute Eosinophils Absolute Basophils VBG Lactate Sodium 134 L Potassium 4.1 Chloride 100 Carbon Dioxide 25.3 Anion Gap 8.7 BUN 11 Creatinine 1.0 Est GFR (CKD-EPI 2020) 58.75 Glucose 263 H Calcium 8.7 Magnesium 1.4 L Total Bilirubin 0.37 AST 14 L ALT 12 L Alkaline Phosphatase 66 Creatine Kinase Troponin I High Sens < 50 < 50 NT-Pro-B Natriuret Pep Total Protein 6.9 Albumin 2.5 L Amylase Lipase TSH 0.63 ABO/Rh Antibody Screen Time Spent with Patient Time Spent with Patient: 35-49 minutes Time was spent: preparing to see the patient(eg.review tests), obtaining and/or reviewing separately otained hiistory, ordering medications,tests, procedures, indepentently interpreting results and counseling the patient
[2024-02-25] MEDS: Rivaroxaban 15 MG TABLET PO (18:34)
[2024-02-25 20:42] LABS: Bilirubin Negative (Negative); Blood Moderate (Negative); Clarity Clear (Clear); Glucose 500 mg/dL (Negative); Ketones Negative (Negative); Leukocyte Esterase Small (Negative); Nitrite Negative (Negative); Urobilinogen 0.2 mg/dL (Up to 0.2); pH 5.5 (5-8)
[2024-02-25 21:00] LABS: Bacteria Few HPF (Negative); C & S Indicated? Yes; Crystals Negative HPF (Negative); Epithelial Cells Rare HPF (Negative); Mucus Negative (Negative); WBC 20-50 HPF (0-5)
[2024-02-25] MEDS: Acetaminophen 325 MG TAB PO (21:24)
[2024-02-25] MEDS: Atorvastatin 40 MG TAB 80 MG PO (21:24)
[2024-02-26] VITALS (87 sets, daily range): BP systolic 105–130; BP diastolic 63–83; PULSE 67–105; RESP 13–28; TEMP 36.1–36.5; O2SAT 88–100
[2024-02-26] MEDS: Normal Saline Flush 10 ML SYR IVP ×3 (02:40→20:22)
[2024-02-26] MEDS: Metoprolol 50 MG TAB PO ×4 (02:40→20:16)
[2024-02-26 04:45] LABS: Abs Immature Grans 0.03 10^3/uL (0.0-0.06); Absolute Basophil Count 0.07 10^3/uL (0.0-0.2); Absolute Eosinophil Count 0.16 10^3/uL (0.0-0.7); Absolute Lymphocyte Count 1.56 10^3/uL (1.2-3.4); Absolute Monocyte Count 0.77 10^3/uL (0.1-0.8); Absolute Neutrophil Count 6.01 10^3/uL (1.2-6.7); Basophils % 0.8 %; Eosinophils % 1.9 %; HCT 36.2 % (36.0-46.0); HGB 10.3 g/dL (11.2-15.7); Immature Grans % 0.3 %; Lymphocytes % 18.1 %; MCHC 28.5 % (32.0-36.0); MCV 81 fL (80-95); MPV 10.2 fL (8.0-11.0); Neutrophils % 69.9 %; Platelet Count 408 10^3/uL (130-400); RBC 4.47 10^6/uL (3.93-5.22); RDW-SD 52.4 fL
[2024-02-26 04:53] LABS: Anion Gap 10.7 mmol/L (3-11); BUN 25 mg/dL (7-18); CO2 24.3 mmol/L (21.0-32.0); CREATININE 1.3 mg/dL (0.55-1.02); Calcium 8.7 mg/dL (8.5-10.1); Chloride 102 mmol/L (98-107); Estimated GFR 42.88 (mL/min/1.73m2); Glucose 237 mg/dL (74-106); Magnesium 1.9 mg/dL (1.8-2.4); Potassium 4.4 mmol/L (3.5-5.1); Sodium 137 mmol/L (136-145)
[2024-02-26] MEDS: Omeprazole 20 MG CAPCR PO (06:53)
[2024-02-26] MEDS: Fluconazole 100 MG TAB 400 MG PO (08:33)
[2024-02-26] MEDS: Aspirin 81 MG CHEW PO (08:33)
[2024-02-26] MEDS: Furosemide 20 MG TAB PO (08:34)
[2024-02-26] MEDS: Empaglifozin 10 MG TAB PO (08:34)
[2024-02-26] MEDS: Lisinopril 10 MG TAB PO (08:34)
[2024-02-26] MEDS: Magnesium Oxide 400 MG TAB PO (08:34)
[2024-02-26] MEDS: dilTIAZem CD 120 MG CAPCR PO (08:35)
[2024-02-26] MEDS: Nystatin POWDER 60 GM JAR TP ×2 (08:38→21:33)
[2024-02-26] MEDS: Insulin Aspart 300 UNITS/3 ML PEN SC ×4 (08:50→21:54)
[2024-02-26] MEDS: cefTRIAXone 1 GM/50 ML BAG IVPB (10:57)
[2024-02-26] MEDS: Normal Saline 500 ML IV (11:01)
--- NOTE | 2024-02-26 11:11 | PGE_ITS ---
Date of Service Date of service: 02/26/24 Time of Service: 11:11 Assessment and Plan Assessment and plan (1) Acute UTI: Status: Acute Assessment and plan: ceftriaxone day 1 while urine culture pending suprapubic catheter changed 02/25 will need change prior to discharge after cultures resulted and UTI treated. (2) Syncope: Status: Acute Assessment and plan: continue telemetry. Echocardiogram with EF 60% vitals stable, no further episodes Qualifiers: Syncope type: unspecified Qualified Code(s): R55 - Syncope and collapse (3) Atrial fibrillation with rapid ventricular response: Status: Acute Assessment and plan: Rate is controlled continue Diltiazem Fully anticoagulated on Xarelto (4) CHF (congestive heart failure): Assessment and plan: Appears euvolemic Continue furosemide, monitor intake and output, monitor daily weights, echocardiogram pending Qualifiers: Heart failure chronicity: chronic Heart failure type: diastolic Qualified Code(s): I50.32 - Chronic diastolic (congestive) heart failure (5) Diabetes mellitus type 2 in obese: Status: Chronic Assessment and plan: Diabetic diet blood sugar checks before meals and at bedtime with sliding scale coverage as needed Last hemoglobin A1c was greater than 13 (6) Beth infection: Status: Acute Assessment and plan: Will add oral Diflucan to nystatin powder (7) Urinary retention: Status: Chronic Assessment and plan: Chronic suprapubic catheter which will be changed out today Urinalysis is pending and may need additional change prior to discharge home if infected Discussed with Dr. Carballo Subjective Subjective Patient reports: no new complaints, tolerating liquids well, tolerating a regular diet and afebrile Interval history since last seen: Sitting up in the chair interactive. Vital signs have been stable with controlled heart rate Exam Narrative Exam Narrative: Chronically ill-appearing female older than stated age disheveled head is atraumatic eyes nonicteric noninjected oral mucosas slightly dry with poor dentition neck no JVD cardiovascular regular rate and irregular rhythm controlled atrial fibrillation on the monitor respirations even and unlabored Abdomen is benign suprapubic catheter intact draining cloudy yellow urine multiple skin folds with erythema and excoriation consistent with fungal infection Moves all extremities Objective Last Vital Signs Temp 36.6 C 02/25/24 15:31 Pulse 86 02/26/24 08:43 Resp 21 02/26/24 09:10 BP 128/67 02/26/24 08:43 Pulse Ox 95 02/26/24 08:50 Laboratory Results - last 24 hr 02/25/24 02/26/24 20:00 04:25 WBC 8.60 RBC 4.47 Hgb 10.3 L Hct 36.2 MCV 81 MCH 23.0 L MCHC 28.5 L RDW 18.0 H Plt Count 408 H MPV 10.2 Immature Gran % 0.3 Neutrophils % 69.9 Lymphocytes % 18.1 Monocytes % 9.0 Eosinophils % 1.9 Basophils % 0.8 Nucleated RBC % 0.0 Absolute Neutrophils 6.01 Absolute Lymphocytes 1.56 Absolute Monocytes 0.77 Absolute Eosinophils 0.16 Absolute Basophils 0.07 Sodium 137 Potassium 4.4 Chloride 102 Carbon Dioxide 24.3 Anion Gap 10.7 BUN 25 H Creatinine 1.3 H Est GFR (CKD-EPI 2020) 42.88 Glucose 237 H Calcium 8.7 Magnesium 1.9 Urine Color Yellow Urine Clarity Clear Urine pH 5.5 Ur Specific [place] 1.010 Urine Protein Negative Urine Ketones Negative Urine Blood Moderate H Urine Nitrite Negative Urine Bilirubin Negative Urine Urobilinogen 0.2 Ur Leukocyte Esterase Small H Urine RBC 10-20 H Urine WBC 20-50 H Ur Epithelial Cells Rare Urine Crystals Negative Urine Bacteria Few Urine Mucus Negative Ur Culture Indicated? Yes Urine Glucose 500 H Time Spent with Patient Time Spent with Patient: 35-49 minutes Time was spent: preparing to see the patient(eg.review tests), obtaining and/or reviewing separately otained hiistory, ordering medications,tests, procedures, indepentently interpreting results and counseling the patient
--- NOTE | 2024-02-26 14:22 | CHAPLAIN ---
Hope and I remembered each other from previous admissions. Today she said started out now well as her breakfast wasn't very good. She is comfortable being here and told me about her daughter and new grandson in [place] and possible plans for family members to meet in [place] over Thanksgiving. Hope said she doesn't know if she'll be strong enough to go.
--- NOTE | 2024-02-26 14:43 | PDOC.CMIN ---
Date of service: 02/26/24 Time of Service: 14:45 Care Management Initial Assmt Initial Assessment Reason for Hospitalization: Syncope, PAF with RVR Functional Status/Living Situation Patient Presentation: Hope was sitting up in her chair when CM met with her. She stated that she is feeling better today. She discussed how she has spent most of the summer in and out of the hospital, and that after a long stay at [facility], she went to stay with her daughter in [place]. She stated that she has been home, in her apartment in [facility]) for about two weeks now. She stated it has been going well, and she feels much stronger than she did earlier this summer. She stated that she is looking forward to going home, and expects to be discharged tomorrow. She is agreeable to to help support her more at home. CM will continue to follow. Resides with: Alone Significant Other/Family: Local Natural Supports: Daughter, Katharina, lives in [place] Employment Status: Retired ([employer]) Instrumental Activities of Daily Living (ADLs): Independent Advance Directives Advance Directives: Do you have an Advance Directive: N 07/08/22 13:33 AD On File at [facility]: N 07/08/22 13:33 Date Asked 02/24/24 02/24/24 19:34 AD Date Reviewed COLST On File at [facility] Yes 04/29/23 05:38 COLST Date Scanned 04/29/23 04/29/23 05:38 Code Status Resuscitation Status Full Code Insurance Coverage/Financial Issues Insurance: [facility] Care Team Visit Care Team Role Provider Type Dean Camilo Primary Care Provider NON-[facility] STAFF PHYSICIAN Alicia Russell MD Emergency Provider [facility] STAFF PHYSICIAN Sunil Borrero Admit Provider NON-[facility] STAFF PHYSICIAN Attending Provider Discharge Potential Discharge Needs: PCP F/U Appt Anticipated Barriers to Discharge: None Identified Patient/Family Education Needs: Review discharge instructions, discuss Ask Me Three Transportation: [facility] Transportation: Private vechicle Plan: Anticipate Hope will return home with new orders for services. She will transport home via [facility], coordinated by CM. She will follow up with her PCP and discharge plan of care. CM will continue to follow. PFSH All Active Problems (Updated 02/25/24 @ 15:15 by Rema Santana NP) Beth infection (Acute) Fall (Acute) Syncope (Chronic) Syncope (Acute) Atrial fibrillation with rapid ventricular response (Acute) Diabetic hyperosmolar non-ketotic state (Acute) AMS (altered mental status) (Acute) Acute UTI (Acute) Acute hyperglycemia (Acute) Full code status (Acute) Advance care planning (Acute) Brain TIA (Acute) Vitamin B12 deficiency (Acute) CVA (cerebral vascular accident) (Chronic) Impaired instrumental activities of daily living (Acute) DNR (do not resuscitate) (Acute) Loneliness (Acute) Chronic kidney disease (CKD) (Chronic) Venous stasis dermatitis (Acute) Decreased activities of daily living (ADL) (Acute) Need for home health care (Acute) Nephrolithiasis (Chronic) Sacral decubitus ulcer, stage II (Acute) Wound of right lower extremity (Acute) Hyperglycemia (Acute) Trochanteric bursitis, right hip (Acute) Right ankle sprain (Acute) Hip pain, right (Acute) GI bleed (Acute) Fracture, lumbar vertebra, compression (Acute) PSVT (paroxysmal supraventricular tachycardia) (Acute) Urinary retention (Chronic 03/31/16) Poorly controlled diabetes mellitus (Chronic) Transient neurologic deficit (Acute) Fungal dermatitis (Acute) Atrial flutter (Acute) Vaginal bleeding, abnormal (Acute) Atrial fibrillation and flutter (Chronic) Diabetes mellitus type 2 in obese (Chronic) Fracture of femoral neck, right (Acute) Retention, urine (Acute) Medical History Infestation by bed bug Hx of malignant melanoma GERD (gastroesophageal reflux disease) H/O menorrhagia Supraventricular tachycardia History of traumatic fracture of hip Unsteady gait Hard of hearing Vision changes Anemia 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 Palliative care encounter Pulmonary hypertension Multiple rib fractures involving four or more ribs Hypertension S/P right hip fracture TIA (transient ischemic attack) Hyperlipidemia Atrial fibrillation CHF (congestive heart failure) LVEF 50-55%, diastolic dysfunction Diabetes Cataracts, bilateral Surgical History History of bilateral cataract extraction History of suprapubic catheter Status post right hip replacement Family History Other Diabetes Heart disease Hyperlipidemia Hypertension Stroke Social History Smoking/Tobacco Use Status: Former Tobacco Use Smoking risk assessment performed?: Yes Alcohol Intake: never Drug use: Never Substance use type: does not use Household members: none Housing: apartment Do you feel safe at home: Yes Do you feel safe in your relationship?: Yes Additional Social history: Lives alone[address] Does not [address]. SDOH(Care Management) Screening Will the Patient Participate in the Screening?: Yes Do you worry about having a steady place to live?: yes Problems where you live: pests such as bugs, ants or mice and water leaks In the past 12 months, have you had to go without electric, gas, oil or water in your home?: no Have you or anyone in your house had to go without enough food to eat?: yes Has lack of transportation kept you from medical appointments or from doing things needed for daily living?: yes Has anyone in your support network made you feel unsafe for any reason?: no Social Determinants of Health Comments(SDOH Details): was behind on electric bill $606 recently paid rct screwed up my schedule pt states missed appointment Health Related Social Needs Health related social needs: inadequate housing(Z59.1), housing instability, housed, with risk of homelessness(Z59.811), food insecurity(Z59.41) and transportation insecurity(Z59.82)
--- NOTE | 2024-02-26 15:24 | W.PC.ACHO ---
Registration Status: Primary Language: Preferred Language: ED Information & Data Chief Complaint [id number] 02/24/24 18:07 Chief Complaint [id number] 02/24/24 17:17 Triage Note syncopal episode resulting 02/24/24 16:59 in a fall while in her apt. bump on her head. pt feels she didn't come to for 2 hours. tachy for ems. A-Fib . right hip pain. Medical / Surgical History (Last Reviewed 02/25/24 @ 01:28 by Sunil Borrero) Infestation by bed bug Hx of malignant melanoma GERD (gastroesophageal reflux disease) H/O menorrhagia Supraventricular tachycardia History of traumatic fracture of hip Unsteady gait Hard of hearing Vision changes Anemia 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 Palliative care encounter Pulmonary hypertension Multiple rib fractures involving four or more ribs Hypertension S/P right hip fracture TIA (transient ischemic attack) Hyperlipidemia Atrial fibrillation CHF (congestive heart failure) Diabetes Cataracts, bilateral (Last Reviewed 02/25/24 @ 01:28 by Sunil Borrero) History of bilateral cataract extraction History of suprapubic catheter Status post right hip replacement Most Recent Vital Signs Temperature 36.5 C 02/26/24 11:55 Temperature Source Temporal Artery Scan 02/26/24 11:55 Pulse 73 02/26/24 12:13 Pulse 80 02/26/24 13:30 Respiratory Rate 19 02/26/24 13:30 Respiratory Effort Normal 02/25/24 15:31 Respiratory Depth Normal 02/25/24 15:31 Respiratory Pattern Normal 02/25/24 15:31 Blood Pressure 105/70 02/26/24 12:13 Blood Pressure Mean 82 02/26/24 12:13 Blood Pressure Position Supine 02/25/24 15:31 Pulse Oximetry 95 02/26/24 13:31 Oxygen Delivery Method Nasal Cannula 02/26/24 13:31 Oxygen Flow Rate 1 02/26/24 13:31 Pain Level 6 02/26/24 11:55 Comment Patient reports throbbing LE/feet pain 11/2902/26/24 11:55 Allergies trazodone Adverse Reaction (Intermediate, Verified 02/24/24 17:09) NIGHTMARES Precautions Isolation Standard precaution 02/24/24 18:07 Active Medications Generic Name Dose Route Start Last Admin Trade Name Freq PRN Reason Stop Dose Admin Acetaminophen 0 mg 02/25/24 00:00 02/25/24 21:24 Acetaminophen 325 Mg Tab PO 650 mg Q4H PRN PRN Administration Aspirin 81 mg 02/25/24 08:30 02/26/24 08:33 Aspirin 81 Mg Chew PO 81 mg DAILY DANNI Administration Atorvastatin Calcium 80 mg 02/25/24 20:00 02/25/24 21:24 Atorvastatin 40 Mg Tab PO 80 mg HS DANNI Administration Diltiazem HCl 120 mg 02/25/24 08:30 02/26/24 08:35 Diltiazem Cd 120 Mg Capcr PO 120 mg DAILY DANNI Administration Empagliflozin 10 mg 02/25/24 08:30 02/26/24 08:34 Empaglifozin 10 Mg Tab PO 10 mg DAILY DANNI Administration Fluconazole 400 mg 02/26/24 08:30 02/26/24 08:33 Fluconazole 100 Mg Tab PO 400 mg DAILY DANNI Administration Furosemide 20 mg 02/25/24 08:30 02/26/24 08:34 Furosemide 20 Mg Tab PO 20 mg DAILY DANNI Administration Ceftriaxone Sodium/Dextrose 1 gm in 50 mls @ 100 mls/hr 02/26/24 10:00 02/26/24 12:13 Rocephin IVPB Infused Q24H DANNI Infusion Sodium Chloride 500 mls @ 0 mls/hr 02/26/24 11:00 02/26/24 11:01 Saline 500ml Bag IV 1 mls/hr PRN PRN Administration As Directed Insulin Aspart 0 units 02/25/24 08:00 02/26/24 12:10 Insulin Aspart 300 Units/3 Ml Pen SC 10 unit 0800,1200,1700,2200 DANNI Administration Protocol Lisinopril 10 mg 02/25/24 08:30 02/26/24 08:34 Lisinopril 10 Mg Tab PO 10 mg DAILY DANNI Administration Magnesium Oxide 400 mg 02/25/24 08:30 02/26/24 08:34 Magnesium Oxide 400 Mg Tab PO 400 mg DAILY DANNI Administration Metoprolol Tartrate 50 mg 02/25/24 08:00 02/26/24 14:11 Metoprolol 50 Mg Tab PO 50 mg Q6H DANNI Administration Nystatin 0 gm 02/26/24 08:30 02/26/24 08:38 Nystatin Powder 60 Gm Jar TP 1 applic BID DANNI Administration Omeprazole 20 mg 02/25/24 07:30 02/26/24 06:53 Omeprazole 20 Mg Capcr PO 20 mg DAILY@0730 DANNI Administration Rivaroxaban 15 mg 02/25/24 17:00 02/25/24 18:34 Rivaroxaban 15 Mg Tablet PO 15 mg DAILY@1700 DANNI Administration Sodium Chloride 0 ml 02/25/24 00:00 02/26/24 02:40 Normal Saline Flush 10 Ml Syr IVP 10 ml PRN PRN Administration Sodium Chloride 0 ml 02/25/24 08:30 02/26/24 08:36 Normal Saline Flush 10 Ml Syr IVP 40 ml BID DANNI Administration IV IV Catheter Type [Left Forearm Saline Lock ] IV Catheter Type [Right Saline Lock Antecubital] IV Catheter Gauge [Left 18 Forearm] IV Catheter Gauge [Right 18 Antecubital] Diagnostics 02/26/24 02/25/24 Range/Units 04:25 20:00 WBC 8.60 (4.4-10.8) 10^3/uL RBC 4.47 (3.93-5.22) 10^6/uL Hgb 10.3 L (11.2-15.7) g/dL Hct 36.2 (36.0-46.0) % MCV 81 (80-95) fL MCH 23.0 L (27.0-33.0) pg MCHC 28.5 L (32.0-36.0) % RDW 18.0 H (11.7-14.6) % Plt Count 408 H (130-400) 10^3/uL MPV 10.2 (8.0-11.0) fL Immature Gran % 0.3 % Neutrophils % 69.9 % Lymphocytes % 18.1 % Monocytes % 9.0 % Eosinophils % 1.9 % Basophils % 0.8 % Nucleated RBC % 0.0 (0.0-0.3) % Absolute Neutrophils 6.01 (1.2-6.7) 10^3/uL Absolute Lymphocytes 1.56 (1.2-3.4) 10^3/uL Absolute Monocytes 0.77 (0.1-0.8) 10^3/uL Absolute Eosinophils 0.16 (0.0-0.7) 10^3/uL Absolute Basophils 0.07 (0.0-0.2) 10^3/uL Sodium 137 (136-145) mmol/L Potassium 4.4 (3.5-5.1) mmol/L Chloride 102 (98-107) mmol/L Carbon Dioxide 24.3 (21.0-32.0) mmol/L Anion Gap 10.7 (3-11) mmol/L BUN 25 H (7-18) mg/dL Creatinine 1.3 H (0.55-1.02) mg/dL Est GFR (CKD-EPI 2020) 42.88 (mL/min/1.73m2) Glucose 237 H (74-106) mg/dL Calcium 8.7 (8.5-10.1) mg/dL Magnesium 1.9 (1.8-2.4) mg/dL Urine Color Yellow (Yellow) Urine Clarity Clear (Clear) Urine pH 5.5 (5-8) Ur Specific [place] 1.010 (1.005-1.025) Urine Protein Negative (Neg-Trace) mg/dL Urine Ketones Negative (Negative) mg/dL Urine Blood Moderate H (Negative) Urine Nitrite Negative (Negative) Urine Bilirubin Negative (Negative) Urine Urobilinogen 0.2 (Up to 0.2) mg/dL Ur Leukocyte Esterase Small H (Negative) Urine RBC 10-20 H (0-2) HPF Urine WBC 20-50 H (0-5) HPF Ur Epithelial Cells Rare (Negative) HPF Urine Crystals Negative (Negative) HPF Urine Bacteria Few (Negative) HPF Urine Mucus Negative (Negative) Ur Culture Indicated? Yes Urine Glucose 500 H (Negative) mg/dL 02/25/24 20:00 Urine Culture - Preliminary Urine - Reflex from Ua Gram Negative Camacho [id number] Documentation Fingerstick Glucose Start: 02/25/24 00:08 Freq: AC & HS Status: Active Protocol: Activity Type Activity Date Activity User E-sign Co-sign Detail Recorded Client Recorded Date Recorded By Document 02/26/24 11:56 ESTEPHANIE DAEMON(3) [id number] 02/26/24 11:58 ESTEPHANIE DAEMON(4) Intake and Output - 24 Hour Total 02/24/24 16:53 thru 02/26/24 12:50 Intake Total 2610 Output Total 4300 Balance -1690 Weight 84 kg Intake: IV 710 Oral 1900 Output: Urine 3650 Urine/Stool Mix 650 Other: Urine Color Yellow Urine Appearance Clear Comment super pubic cathter in tact and draining clear yellow urine Urinary Catheter Urinary Catheter Date of 02/25/24 Insertion [Suprapubic] Time of insertion [Suprapubic] 19:00 Falls Risk Assessment History of Falls Admit Due to Fall 02/25/24 15:31 Contributing Factors Impairments 02/25/24 15:31 Ambulatory Aids Uses ambulatory device + 02/25/24 15:31 Tubes/Lines With any additional score 02/25/24 15:31 Gait Evaluation W/any additional score 02/25/24 15:31 Cognition Cognitive impairment 02/25/24 15:31 Fall Total Score 113 02/25/24 15:31 Level of Risk Maximum Risk 02/25/24 15:31 Problems (Last Reviewed 02/25/24 @ 01:28 by Sunil Borrero) Beth infection (Acute) Syncope (Acute) Atrial fibrillation with rapid ventricular response (Acute) Acute UTI (Acute) Urinary retention (Chronic 03/31/16) Diabetes mellitus type 2 in obese (Chronic) Notes 02/25/24 08:39 Nursing Notes by Elsy Isaac diabetic breakfast provided Nursing Note: Initialized on 02/25/24 08:39 - END OF NOTE 02/25/24 03:25 Nursing Notes by Cathie Godoy Nursing Note: O2 sat dropping to 86%. placed patient on 2L NC. O2 sat 96-97% Initialized on 02/25/24 03:25 - END OF NOTE v v v v v v v v v Sending and/or Receiving Nurses: Please use comment section below to note any information pertinent to the patient hand-off not included above. Information / Comments: Report received from: [facility] at 1500, patient transferred to [facility] unit at 1515.
[2024-02-26] MEDS: Rivaroxaban 15 MG TABLET PO (17:06)
[2024-02-26] MEDS: Atorvastatin 40 MG TAB 80 MG PO (20:16)
[2024-02-27] MEDS: Metoprolol 50 MG TAB PO ×2 (02:37→07:39)
[2024-02-27 02:41] VITALS: BP 121/74; PULSE 83; RESP 18; TEMP 37.1; O2SAT 94
[2024-02-27 03:00] VITALS: O2SAT 94
[2024-02-27 07:20] VITALS: BP 116/67; PULSE 88; RESP 19; TEMP 37.1; O2SAT 90
[2024-02-27] MEDS: Fluconazole 100 MG TAB 400 MG PO (07:38)
[2024-02-27] MEDS: Furosemide 20 MG TAB PO (07:39)
[2024-02-27] MEDS: Aspirin 81 MG CHEW PO (07:39)
[2024-02-27] MEDS: Magnesium Oxide 400 MG TAB PO (07:39)
[2024-02-27] MEDS: Omeprazole 20 MG CAPCR PO (07:39)
[2024-02-27] MEDS: Lisinopril 10 MG TAB PO (07:39)
[2024-02-27] MEDS: Empaglifozin 10 MG TAB PO (07:40)
[2024-02-27] MEDS: Nystatin POWDER 60 GM JAR TP (07:40)
[2024-02-27] MEDS: dilTIAZem CD 120 MG CAPCR PO (07:40)
[2024-02-27] MEDS: Insulin Aspart 300 UNITS/3 ML PEN SC ×2 (07:40→11:54)
[2024-02-27] MEDS: Normal Saline Flush 10 ML SYR IVP (07:40)
[2024-02-27] MEDS: cefTRIAXone 1 GM/50 ML BAG IVPB (09:29)
--- NOTE | 2024-02-27 09:36 | DSE_ITS ---
Date of service: 02/27/24 Time of Service: 09:36 DS: Diagnosis Discharge Diagnosis (1) Acute UTI: Status: Acute (2) Syncope: Status: Acute (3) Atrial fibrillation with rapid ventricular response: Status: Acute (4) CHF (congestive heart failure): (5) Diabetes mellitus type 2 in obese: Status: Chronic (6) Beth infection: Status: Acute (7) Urinary retention: Status: Chronic Discharge Plan Disposition Patient Disposition: Home W/Home Health Services Condition: Improving Discharge Details Reason For Visit: Syncope,PAF with RVR Admit Date/Time: 02/24/24 23:58 Admit Provider: Sunil Borrero Attending Provider: Sunil Borrero Primary Care Provider: Dean Camilo Hospital Course Hospital Course: This is a 73 years old female patient with a past medical history of recent hospitalization at [facility] a month ago for sepsis with HH NK and atrial fibrillation with rapid ventricular response (RVR) concluded by her change in medicine regimen upon discharge on November 20 with her daughter as a caregiver at her home to administer medicine presented to [facility] on 02/24/2024 for evaluation of fall and syncope. The patient was fully anticoagulated on Xarelto. Her other significant past medical history include PSVT, congestive heart failure?HFpEF, uncontrolled diabetes mellitus with noncompliance to treatment and an hemoglobin A1C of over 13 in January 2024, UTI, TIA, CKD, nephrolithiasis, urinary retention with suprapubic catheter.The patient reported stumbling backwards with syncopal episode while answering her door and on arrival to the ED also c/o a headache, mild neck pain, abdominal pain, and R hip pain, no c/o radiation, bruising, hematoma, altered mentation, chest pain, shortness of breath. Severity is described as moderate. Palliating factors include nothing specific attempted, placed in C-collar by EMSReportedly the daughter stopped the diltiazem which was prescribed for atrial fibrillation with rapid regular response. In the ED the patient was found to be in atrial fibrillation with RVR as per EKG which responded to IV diltiazem; the patient also received a dose of long- acting diltiazem. Head CT was negative for any acute findings. Chest CT showed no lung infiltrates, lung contusion or pleural effusion or pneumothorax no lung masses. CT of the of abdomen and pelvis showed no acute trauma in the chest, abdomen or pelvis with noticeable thoracic aorta diameter of 3.9 cm without dissection. Benign skin cyst measuring 1.7 x 1.7 cm. reported and to be followed up by primary care practitioner as an outpatient. The lumbar and thoracic CT without contrast showed no acute fracture of the thoracic or lumbar the lumbar spine. A stable appearing pre-existing compression fracture of L1 and stable my anterolisthesis of L4 upon L5 seen. Other significant workup in the ED included a lipase of 120 without symptoms and evidence of pancreatic mass nor dilatation of the pancreatic duct on CT.No leukocytosis with an ANC of 7.3. The hospitalist was consulted and patient admitted to medical surgical floor with telemetry for evaluation and management of atrial fibrillation with rapid ongoing response syncope and uncontrolled diabetes mellitus. On the subsequent day, the patient was found to have a UTI as per urinalysis and was initiated on ceftriaxone. The patient remained in atrial fibrillation since while on telemetry with her home dose of oral diltiazem 120 mg CD once daily . The patient's was kept on her chronic metoprolol. Diflucan was inititated for yeast infection in combination to nystatin powder. Other chronic conditions were treated as per home medicine regimen. An echocardiogram was completed on 02/25/2024 with the following conclusions: Normal left ventricular wall thickness and chamber size. Ejection fraction is 65%. Wall motion is normal Mildly enlarged right ventricle with preserved systolic function Both atria are mildly dilated Aortic valve is trileaflet with mild regurgitation Mild mitral annular calcification. Trace to mild mitral regurgitation Normal tricuspid valve with mild regurgitation. Estimated right ventricular systolic pressure is 59 mmHg Ascending aorta measures 3.6 cm No intra atrial or intraventricular septum defect seen. Urine microbiology showed gram-negative rods; the patient has been afebrile and will be discharged on cefpodoxime oral with follow-up UA as per her primary care practitioner. A short course of oral fluconazole will be continued upon discharge. The patient will be discharged home with home health physical therapy as per physical therapy recommendations. The patient will also require [employer] for coordination of care, occupational therapy and nursing to monitor for worsening of conditions, medicine compliance and dressing change with Mepilex after cleaning with sterile saline to left lower extremity blister 2 times a week.The patient will need to follow -up with her PCP within 7 days of discharge with recommendation to discuss referral to podiatry. The patient had reported to the ED provider that she have had skin cancer in the past and will need to follow-up with her primary care provider in investigating this issue. Discussed with Dr. Eugene Mora Meds and New Rx's Prescriptions: New fluconazole 100 mg Tablet 400 mg PO DAILY Qty: 12 0RF cefpodoxime 200 mg tablet 200 mg PO BID Qty: 10 0RF Rx Instructions: must administer with a meal/food Continued nystatin 100,000 unit/gram powder 1 applic Topical BID PRN (Reason: itching) Qty: 60 11RF Rx Instructions: Apply to abdominal fold and under breasts. diltiazem HCl 120 mg capsule,extended release 24hr 120 mg PO DAILY Jardiance 10 mg tablet 10 mg PO DAILY insulin lispro [Humalog KwikPen Insulin] 100 unit/mL insulin pen See Rx Instructions SUBCUT QMEALS Patient Comments: INJECT 12 UNITS SUBCUTANEOUSLY DIRECTED WITH MEALS Rx Instructions: 12 units in AM and 6 units PM subcutaneously with meals; (DME) Depend Underwear For Women Lrg Misc See Rx Instructions .Route Qty: 100 11RF Rx Instructions: Depends pull up large lisinopril 10 mg Tablet 10 mg PO DAILY insulin glargine [Lantus Solostar U-100 Insulin] 100 unit/mL (3 mL) Insulin Pen 20 unit subcut HS Qty: 15 1RF metoprolol succinate 100 mg tablet extended release 24 hr 100 mg PO DAILY Qty: 0 0RF Xarelto 15 mg Tablet 15 mg PO DAILY magnesium oxide [MagOx] 400 MG tablet 400 mg PO DAILY Qty: 30 0RF omeprazole 20 MG capsule,delayed release(DR/EC) 20 mg PO DAILY Qty: 30 0RF furosemide 20 mg tablet 20 mg PO DAILY Qty: 30 0RF Patient Comments: pt unsure if they are taking this medication metformin 500 mg tablet 500 mg PO BID atorvastatin 80 mg tablet 80 mg PO DAILY ciclopirox 0.77 % cream TOPICAL Patient Comments: APPLY TO AFFECTED AND SURROUNDING AREAS OF SKIN TOPICALLY TWO TIMES A DAY IN THE MORNING AND EVENING aspirin [Children's Aspirin] 81 mg Tablet,Chewable 81 mg PO DAILY Qty: 0 0RF nystatin 100,000 unit/gram powder 1 applic topical BID Qty: 60 0RF Discharge Instructions Referrals: Dean Camilo [Primary Care Provider] - (F/u within 7 days of discharge please) Activity:: Activity as Tolerated Equipment/Supplies:: Walker Diet:: heart helathy diabetic DS: Summary Time Spent with Patient providing and/or coordinating discharge services: Greater than 30 minutes Status at Discharge Functional status at discharge: uses cane/walker Overall status at discharge: patient is progressing back to baseline Mental Status: mental status grossly normal Speech and Movement: speech and movement normal Mood: congruent mood Affect: normal affect Quality:SDOH Health Related Social Needs: Health related social needs inadequate housing, risk o f homeless, food insecurity, transpo insecurity Exam Narrative Exam Narrative: Constitutional The patient is sitting in chair without acute distress HENMT: Facial structures with normal appearance Neuro:alert and oriented X3 . No neurological focal deficit Chest:Chest is symmetrical and normal appearance Resp: Normal respiratory pattern, speaks in full sentences, unlabored breathing, clear lung bilaterally Cardio:Atrial fibrillation HR 79, irregular rhythm, S1, S2, bilateral radial and dorsalis pedis pulses are positive GI: Abdomen is not distended, soft and non tender, bowel sounds are present : Negative Costovertebral angle tenderness, no bladder distension Back/spine/Pelvis: No back tenderness, normal alignment Integumentary:LLE w redness and blister covered with mepilex Psych: RASS 0, congruent mood and normal affect. Psych Mental Status: mental status grossly normal Speech and Movement: speech and movement normal Mood: congruent mood Affect: normal affect DS: Data Vitals/I&O Vitals and I&O: Vital Signs Temperature 37.1 C 02/27/24 07:20 Temperature Source Tympanic 02/27/24 07:20 Pulse 88 02/27/24 07:20 Pulse 80 02/26/24 13:30 Respiratory Rate 19 02/27/24 07:20 Respiratory Effort Normal 02/25/24 15:31 Respiratory Depth Normal 02/25/24 15:31 Respiratory Pattern Normal 02/25/24 15:31 Blood Pressure 116/67 02/27/24 07:20 Blood Pressure Mean 82 02/26/24 12:13 Blood Pressure Position Supine 02/25/24 15:31 Pulse Oximetry 90 L 02/27/24 07:20 Oxygen Delivery Method Room Air 02/27/24 07:20 Oxygen Flow Rate 0 02/27/24 07:20 Pain Level 5 02/27/24 07:20 Comment patient saturating at 87% on room air while sleeping. O2 applied at 2L 02/27/24 02:41 Intake & Output 02/26/24 02/26/24 02/27/24 11:59 23:59 11:59 Intake Total 240 / 540 300 / 540 Output Total 400 / 2850 2450 / 2850 1000 / 1000 Balance -160 / -2310 -2150 / -2310 -1000 / -1000 Weight 84 kg Intake: IV 60 / 60 Oral 240 / 480 240 / 480 Output: Urine 400 / 2850 2450 / 2850 1000 / 1000 Other: Urine Color Pale Pale Pale Yellow Yellow Urine Appearance Clear Clear Clear Urine Odor Normal Comment dressing around suprapubic insertion site changed. scant amount of blood noted on previous dressing at time of change. suprapubic Stool Size Moderate Stool Characteristics Formed Voiding Methods Indwelling Catheter Data Completed and Pending Labs on day of discharge: Preliminary micro results at discharge 02/25/24 20:00 Urine Culture - Preliminary Urine - Reflex from Ua Gram Negative Camacho Gram Positive Kristine,Mixed PFSH All Active Problems (Updated 02/25/24 @ 15:15 by Rema Santana NP) Beth infection (Acute) Fall (Acute) Syncope (Chronic) Syncope (Acute) Atrial fibrillation with rapid ventricular response (Acute) Diabetic hyperosmolar non-ketotic state (Acute) AMS (altered mental status) (Acute) Acute UTI (Acute) Acute hyperglycemia (Acute) Full code status (Acute) Advance care planning (Acute) Brain TIA (Acute) Vitamin B12 deficiency (Acute) CVA (cerebral vascular accident) (Chronic) Impaired instrumental activities of daily living (Acute) DNR (do not resuscitate) (Acute) Loneliness (Acute) Chronic kidney disease (CKD) (Chronic) Venous stasis dermatitis (Acute) Decreased activities of daily living (ADL) (Acute) Need for home health care (Acute) Nephrolithiasis (Chronic) Sacral decubitus ulcer, stage II (Acute) Wound of right lower extremity (Acute) Hyperglycemia (Acute) Trochanteric bursitis, right hip (Acute) Right ankle sprain (Acute) Hip pain, right (Acute) GI bleed (Acute) Fracture, lumbar vertebra, compression (Acute) PSVT (paroxysmal supraventricular tachycardia) (Acute) Urinary retention (Chronic 03/31/16) Poorly controlled diabetes mellitus (Chronic) Transient neurologic deficit (Acute) Fungal dermatitis (Acute) Atrial flutter (Acute) Vaginal bleeding, abnormal (Acute) Atrial fibrillation and flutter (Chronic) Diabetes mellitus type 2 in obese (Chronic) Fracture of femoral neck, right (Acute) Retention, urine (Acute) Medical History Infestation by bed bug Hx of malignant melanoma GERD (gastroesophageal reflux disease) H/O menorrhagia Supraventricular tachycardia History of traumatic fracture of hip Unsteady gait Hard of hearing Vision changes Anemia 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 Palliative care encounter Pulmonary hypertension Multiple rib fractures involving four or more ribs Hypertension S/P right hip fracture TIA (transient ischemic attack) Hyperlipidemia Atrial fibrillation CHF (congestive heart failure) LVEF 50-55%, diastolic dysfunction Diabetes Cataracts, bilateral Surgical History History of bilateral cataract extraction History of suprapubic catheter Status post right hip replacement Family History Other Diabetes Heart disease Hyperlipidemia Hypertension Stroke Social History Smoking/Tobacco Use Status: Former Tobacco Use Smoking risk assessment performed?: Yes Alcohol Intake: never Drug use: Never Substance use type: does not use Household members: none Housing: apartment Do you feel safe at home: Yes Do you feel safe in your relationship?: Yes Additional Social history: Lives alone. [address] Does not drive. Time Spent with Patient Time Spent with Patient: 70-84 minutes4 Time was spent: preparing to see the patient(eg.review tests), obtaining and/or reviewing separately otained hiistory, ordering medications,tests, procedures, referring, communicating with other health health care specialist, indepentently interpreting results, counseling the patient and care coordination
[2024-02-27 11:27] VITALS: BP 106/59; PULSE 74; RESP 19; TEMP 36.9; O2SAT 94
--- NOTE | 2024-02-27 11:28 | IN_ITS ---
PT Notes Visit Reasons: Syncope,PAF with RVR Physical Therapy Inpatient Initial Evaluation Date: 02/27/2024 Referring Doctor: Rema Santana NP PT Orders: PT CONSULT: Eval/Treat Precautions: Fall. Standard. Activity as tolerated. Patient Profile/Admitting Diagnosis: Hope is a 73-year-old female who presented to the ED due to a mechanical fall with diagnoses of syncope related to AF with RVR, CHF, DM type II, UTI, and urinary retention with urinary tract infection, altered mental status, CKD, urinary retention, atrial flutter/fibrillation. PMHX: All Active Problems (Updated 02/25/24 @ 01:29 by Sunil Borrero) Fall (Acute) Syncope (Chronic) Syncope (Acute) Atrial fibrillation with rapid ventricular response (Acute) Diabetic hyperosmolar non-ketotic state (Acute) AMS (altered mental status) (Acute) Acute UTI (Acute) Acute hyperglycemia (Acute) Full code status (Acute) Advance care planning (Acute) Brain TIA (Acute) Vitamin B12 deficiency (Acute) CVA (cerebral vascular accident) (Chronic) Impaired instrumental activities of daily living (Acute) DNR (do not resuscitate) (Acute) Loneliness (Acute) Chronic kidney disease (CKD) (Chronic) Venous stasis dermatitis (Acute) Decreased activities of daily living (ADL) (Acute) Need for home health care (Acute) Nephrolithiasis (Chronic) Sacral decubitus ulcer, stage II (Acute) Wound of right lower extremity (Acute) Hyperglycemia (Acute) Trochanteric bursitis, right hip (Acute) Right ankle sprain (Acute) Hip pain, right (Acute) GI bleed (Acute) Fracture, lumbar vertebra, compression (Acute) PSVT (paroxysmal supraventricular tachycardia) (Acute) Urinary retention (Chronic 03/31/16) Poorly controlled diabetes mellitus (Chronic) Transient neurologic deficit (Acute) Fungal dermatitis (Acute) Atrial flutter (Acute) Vaginal bleeding, abnormal (Acute) Atrial fibrillation and flutter (Chronic) Diabetes mellitus type 2 in obese (Chronic) Fracture of femoral neck, right (Acute) Retention, urine (Acute) Medical History Infestation by bed bug Hx of malignant melanoma GERD (gastroesophageal reflux disease) H/O menorrhagia Supraventricular tachycardia History of traumatic fracture of hip Unsteady gait Hard of hearing Vision changes Anemia 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 Palliative care encounter Pulmonary hypertension Multiple rib fractures involving four or more ribs Hypertension S/P right hip fracture TIA (transient ischemic attack) Hyperlipidemia Atrial fibrillation CHF (congestive heart failure) LVEF 50-55%, diastolic dysfunction Diabetes Cataracts, bilateral Surgical History History of bilateral cataract extraction History of suprapubic catheter Status post right hip replacement Social History/Home Situation: Lives on the third floor of the [facility] apartment. She has a ramp to enter and an elevator that leads to her apartment. Transportation via [facility]. Modified independent using single-point cane prior to admission. Equipment Owned/DME: Standard walker, 4WW, FWW, SPC Subjective: Okay with HH PT coming i to continue to work on her balance andn Kaleigh strength. Objective: General Observation: Resting on bedside chair. Telemetry monitoring in place. Erythema to L leg. Mental Status: Alert and orieneted x 4 Pain: Denies Vital Signs: WFL as closely monitored by telemetry ROM: Right Upper Extremity: Shoulder Flexion WFL. Shoulder abduction WFL. Shoulder ER/IR WFL. Elbow flexion WFL. Forearm pronation/supination WFL. Wrist flexion WFL. Opening and closing of hand WFL. Left Upper Extremity: Shoulder Flexion WFL. Shoulder abduction WFL. Shoulder ER/IR WFL. Elbow flexion WFL. Forearm pronation/supination WFL. Wrist flexion WFL. Opening and closing of hand WFL. Right Lower Extremity: Hip flexion WFL. Hip abduction WFL. Hip ER/IR WFL. Knee flexion 10 to 90 degrees. Knee extension -10 degrees. Ankle dorsiflexion to neutral only. Ankle plantarflexion/inversion WFL. Left Lower Extremity: Hip flexion WFL. Hip abduction WFL. Hip ER/IR WFL. Knee flexion 30 to 90 degrees. Knee extension -30 degrees. Ankle dorsiflexion to neutral only. Ankle plantarflexion WFL. Strength: Right Upper Extremity: Shoulder flexors 4-/5. Shoulder abductors 4-/5. Elbow flexors 4-/5. Elbow extensors 4-/5. Surgery Scheduling Coordinator strong. Left Upper Extremity: Shoulder flexors 4-/5. Shoulder abductors 4-/5. Elbow flexors 4-/5. Elbow extensors 4-/5. Surgery Scheduling Coordinator strong. Right Lower Extremity: Hip flexors 4-/5. Hip abductors 4-/5. Knee flexors 3-/5. Knee extensors 3-/5. Ankle dorsiflexors 3-/5. Ankle plantarflexors 4-/5. Left Lower Extremity: Hip flexors 4-/5. Hip abductors 4-/5. Knee flexors 3-/5. Knee extensors 3-/5. Ankle dorsiflexors 3-/5. Ankle plantarflexors 4-/5. Sensation: Intact as to pain and light pressure in bilateral lower extremities Bed Mobility/Transfers: Minimal cueing provided for use of B hands as needed for support, movement sequence, AD management, and posture to reduce fall risk and minimize pain report Sit to stand stand by assist with FWW Stand to sit stand by assist with FWW Bed to chair stand by assist with FWW Chair to bed stand by assist with FWW Gait: Facilitated safe and correct performance of level surface ambulation covering a distance of 300 feet using 4 wheeled walker with no report of increased pain, chest pain, and lightheadedness; minimal verbal cueing provided for walker management, posture, and limb advancement. Balance: Static Sitting: Normal Dynamic Sitting: Normal Static Standing: Fair Dynamic Standing: Fair Special Tests: Mobility Limitations Standardized Measure [facility] 6 clicks Basic Mobility Inpatient Short Form: Raw Score: 23 CMS Score: 11% deficit 4-Stage Balance test: Feet together 10 seconds Semi-tandem unable Full tandem unable One-legged stance unable Informed Consent/Education: Patient instructed in purpose of PT consult and plan of care. Agreeable to proceed with established PT POC to achieve personal goals. ASSESSMENT: Hope requires the use of a four-wheeled walker for all mobility ADL performance to maximize indendeence and reduce fall risk. She will benefit from PT services to progress mobility level using SPC per prior levle of function. Patient presents with clinical signs and symptoms consistent with current/admitting diagnoses that have resulted to mobility limitations, gait instability, generalized weakness, and impairment of motor control as demonstrated by the following impairment level findings: 1. Decreased strength to B LE major muscle groups 2. Impaired standing balance 3. Impaired activity tolerance Impairments are contributing to the following functional limitations: 1. Inability to safely ambulate without assistive device and physical assistance 2. Increase completion time for mobility ADL performance 3. Increased risk for falls Patient is assessed as a 13228 moderate complexity based on the following: History: 71 [id number] with past medical history as indicated above Examination: Demonstrable impairment in strength, balance, and mobility level with underlying impairments and functional limitations as exhibited above as well as deficit score of 47% utilizing the [facility] Mobility Inpatient Short Form Presentation: Evolving Decision Makin moderate complexity Goals: Goals X1 week 1. Supine-Sit independent 2. Sit-Supine independent 3. Sit-Stand independent 4. Stand-Sit independent 5. Bed-Chair independent 6. Chair-Bed independent 7. Independent gait on level surface with use of least restrictive device for at least 300 feet without report of pain nor dyspnea 8. Independent stair negotiation while holding onto bilateral rails for at least 10 steps without report of pain nor dyspnea 9. Independent with home exercise program 10. Good static and dynamic standing balance/tolerance Plan of Care/Treatment Plan: 1-2x/day, 7 days/week x 1 week. Plan of care has been reviewed with the COMBER TENDER providing the service under Physical Therapy direction. Initiate Physical Therapy intervention for pain management as needed, strengthening, bed mobility, transfers, gait, stairs, balance training, and use of assistive device. DISCHARGE RECOMMENDATIONS: [X] Home with services. Patient will benefit from home health PT services in order to progress mobility level using least restrictive assistive ambulatory device, assess home safety, identify additional equipment needs, and establish a functional maintenance program that will increase ability of patient to remain at home. TREATMENT CODE/TIME: 38015 x 20 minutes for 1 unit, 31952 x 10 minutes for 1 unit (11:28-11:58). Thank you for the opportunity to participate in the care of this patient. Sue Dejesus PT, DPT, CLT [facility] [place], [place]
--- NOTE | 2024-02-27 12:31 | PDOC.CMDIS ---
Date of service: 02/27/24 Time of Service: 12:31 LACE Index Scoring Tool Questions: Length of Stay (in days): 2 Was the patient admitted via the E.D.?: Yes Comorbidities: Cerebrovascular Disease, Diabetes w/o Complication and Liver or Renal Disease E.D. Visits: 1 Answers: Total Score: 11 Risk of Readmission: High Risk Care Management Discharge Plan Reason for Hospitalization: syncope, PAF with RVR Discharge Plan: Hope will return home today with new orders for HH RN, PT, OT, [facility] [facility]. CM coordinated an [facility] private vehicle transport home. [facility] pharmacy provided her with medications through the weekend, as her pharmacy is closed until Thursday. She will follow up with her PCP and discharge plan of care. She is happy to be going home, and stated that she feels ready for discharge. Patient/Family Education Needs: Review discharge instructions and limitations, discussion of self care needs including ask me three. Services Needed at Discharge: Home Health Care Services (new HH RN, PT, OT, [facility] [address] [facility]) and Transportation ([facility] private vehicle) SDOH Health Related Social Needs: Health related social needs inadequate housing, risk of homeless, food insecurity, transpo insecurity Health related social needs: inadequate housing(Z59.1), housing instability, housed, with risk of homelessness(Z59.811), food insecurity(Z59.41) and transportation insecurity(Z59.82)
--- NOTE | 2024-02-27 13:27 | PDOC.HHF2F_ITS ---
Home Health Referral Home Health Orders Clinical synopsis of why skilled professionals are needed: This is a 73 years old female patient with a past medical history of recent hospitalization at [facility] a month ago for sepsis with HH NK and atrial fibrillation with rapid ventricular response (RVR) concluded by her change in medicine regimen upon discharge on November 20 with her daughter as a caregiver at her home to administer medicine presented to [facility] on 02/24/2024 for evaluation of fall and syncope. The patient was fully anticoagulated on Xarelto. Her other significant past medical history include PSVT, congestive heart failure?HFpEF, uncontrolled diabetes mellitus with noncompliance to treatment and an hemoglobin A1C of over 13 in January 2024, UTI, TIA, CKD, nephrolithiasis, urinary retention with suprapubic catheter.The patient reported stumbling backwards with syncopal episode while answering her door and on arrival to the ED also c/o a headache, mild neck pain, abdominal pain, and R hip pain, no c/o radiation, bruising, hematoma, altered mentation, chest pain, shortness of breath. Severity is described as moderate. Palliating factors include nothing specific attempted, placed in C-collar by EMSReportedly the daughter stopped the diltiazem which was prescribed for atrial fibrillation with rapid regular response. In the ED the patient was found to be in atrial fibrillation with RVR as per EKG which responded to IV diltiazem; the patient also received a dose of long- acting diltiazem. Head CT was negative for any acute findings.Further imaging w/o acute findings. The lumbar and thoracic CT without contrast showed no acute fracture of the thor acic or lumbar the lumbar spine. A stable appearing pre-existing compression fracture of L1 and stable my anterolisthesis of L4 upon L5 seen. Other significant workup in the ED included a lipase of 120 without symptoms and evidence of pancreatic mass nor dilatation of the pancreatic duct on CT.No leukocytosis with an ANC of 7.3. The hospitalist was consulted and patient admitted to medical surgical floor with telemetry for evaluation and management of atrial fibrillation with rapid ongoing response syncope and uncontrolled diabetes mellitus. On the subsequent day, the patient was found to have a UTI as per urinalysis and was initiated on ceftriaxone. The patient remained in atrial fibrillation since while on telemetry with her home dose of oral diltiazem 120 mg CD once daily . The patient's was kept on her chronic metoprolol. Diflucan was inititated for yeast infection in combination to nystatin powder. Other chronic conditions were treated as per home medicine regimen. An echocardiogram was completed on 02/25/2024 with the following conclusions: Normal left ventricular wall thickness and chamber size. Ejection fraction is 65%. Wall motion is normal Urine microbiology showed gram-negative rods; the patient has been afebrile and will be discharged on cefpodoxime oral with follow-up UA as per her primary care practitioner. A short course of oral fluconazole will be continued upon discharge. The patient will be discharged home with home health physical therapy as per physical therapy recommendations. The patient will also require RIBBON HAND for coordination of care, occupational therapy and nursing to monitor for worsening of conditions, medicine compliance and dressing change with Mepilex after cleaning with sterile saline to left lower extremity blister 2 times a week.The patient will need to follow -up with her PCP within 7 days of discharge with recommendation to discuss referral to podiatry. The patient had reported to the ED provider that she have had skin cancer in the past and will need to follow-up with her primary care provider in investigating this issue. Discussed with Dr. Knight Medical diagnosis necessitation home health referral: Atrial fibrillation with RVR, UTI, DM, chronic left leg blister previouslty dressed by HH. The patient will be discharged home with home health physical therapy as per physical therapy recommendations. The patient will also require RIBBON HAND for coordination of care, occupational therapy and nursing to monitor for worsening of conditions, medicine compliance and dressing change with Mepilex after cleaning with sterile saline to left lower extremity blister 2 times a week.The patient will need to follow -up with her PCP within 7 days of discharge with recommendation to discuss referral to podiatry. The patient had reported to the ED provider that she have had skin cancer in the past and will need to follow- up with her primary care provider in investigating this issue. Registered Nurse: Check all that apply Instruct on new or changed medication(s)/assess compliance: Ordered Assess for exacerbation of medical condition, instruct patient/caregivers on signs and symptoms to report for early detection: Ordered Physical Therapist: Check all that apply Increase strength & endurance for safe mobility at home: Ordered To design/establish home maintenance program: Ordered Fall reduction therapy program for patient with history of frequent falls: Ordered Home safety evaluation and teaching/gait training including stair management (if applicable): Ordered Occupational Therapist: Evaluate and treat for patient unable to perform ADL/IADL/self-care: Ordered Commuter Train Operator: Assist with community resources: Ordered Assist with terminal worker care planning: Ordered Home Bound Status Requires the aid of supportive device (check all that apply): Walker Describe why leaving home would require a considerable and taxing effort: Requires frequent rest periods Encounter Date and Reason: I certify that a FTF encounter for this patient was performed on February 27, 2024 and that such encounter was related to the primary reason the patient requires home health services. The encounter was conducted in the following manner: * By me as the certifying physician, HOSE COUPLING JOINER, PA or * By an inpatient physician, HOSE COUPLING JOINER or PA during an inpatient stay who communicated findings to me, Certification And Authentication I certify that I composed the above information based on my clinical judgment relating to this patient's medical condition and, if applicable, clinical findings communicated to me by the NPP or inpatient physician who performed the FTF encounter. Name of Provider that will be monitoring home health services: Dean Camilo
== END 2024-02-27 14:06 | disposition home health service (06) | DRG 309 ==
LOC: ER 02-25 04:32 → ICU 02-25 14:32 → EDHOLD 02-26 11:16 → MS 02-26 15:09
PROVIDERS: Nurse Practitioner Acute Care; Physician Assistant; Admitting Provider Family Medicine; Emergency Provider Student in an Organized Health Care Education/Training Program; PCP Physician Assistant; Visit Provider Family Medicine
DX: I48.91 Unspecified atrial fibrillation (principal); I13.0 Hypertensive heart and chronic kidney disease with heart failure and stage 1 through stage 4 chronic kidney disease, or unspecified chronic kidney disease; I50.32 Chronic diastolic (congestive) heart failure; R55 Syncope and collapse; R33.9 Retention of urine, unspecified; Z86.73 Personal history of transient ischemic attack (TIA), and cerebral infarction without residual deficits; E53.8 Deficiency of other specified B group vitamins; N18.9 Chronic kidney disease, unspecified; I87.2 Venous insufficiency (chronic) (peripheral); I48.92 Unspecified atrial flutter; K21.9 Gastro-esophageal reflux disease without esophagitis; R26.89 Other abnormalities of gait and mobility; E78.5 Hyperlipidemia, unspecified; I27.20 Pulmonary hypertension, unspecified; D64.9 Anemia, unspecified; R47.1 Dysarthria and anarthria; W19.XXXA Unspecified fall, initial encounter; Z79.4 Long term (current) use of insulin; M48.56XD Collapsed vertebra, not elsewhere classified, lumbar region, subsequent encounter for fracture with routine healing; I08.3 Combined rheumatic disorders of mitral, aortic and tricuspid valves; B37.2 Candidiasis of skin and nail; Z93.51 Cutaneous-vesicostomy status; I47.10 Supraventricular tachycardia, unspecified; E11.65 Type 2 diabetes mellitus with hyperglycemia; Z91.148 Patient's other noncompliance with medication regimen for other reason; E11.22 Type 2 diabetes mellitus with diabetic chronic kidney disease; R51.9 Headache, unspecified; M54.2 Cervicalgia; R10.9 Unspecified abdominal pain; M25.551 Pain in right hip; Z79.01 Long term (current) use of anticoagulants
CPT/HCPCS: 00123; 36415; 36416; 74177; 80048; 80053; 82550; 82962; 83690; 85027; 86850; 86900; 86901; 87077; 93005; 93306; 96365; 96366; 96375; 97162; 97530; 99285; 70450; 71260; 72125; 81003; 81015; 82150; 83605; 83735; 83880; 84443; 84484; 85025; 87086; 87186; 93010; 99223; 99232; 99239; G0378; J0131; J0696; J1815; J3475

== ENCOUNTER 2024-03-21 16:12 | Emergency (ER) | payer MEDICARE, MEDICAID, SELFPAY ==
[2024-03-21] VITALS (52 sets, daily range): BP systolic 109–184; BP diastolic 49–150; PULSE 81–114; RESP 11–21; TEMP 36.7; O2SAT 92–98
--- NOTE | 2024-03-21 15:45 | RT.EKG_ITS ---
APPROVED REPORT Exam: Resting ECG Reason for Exam: Chest Pain, Dizziness Patient Location: E HR:109 bpm ECG Measurements Heart Rate 109 AXIS DE [id number] P [id number] QRSd 80 QRS 58 QT 335 T 39 QTc 452 Conclusion Atrial fibrillation...V-rate 74-142, irreg A-activity Low voltage, extremity and precordial leads...extremity<0.5mV, precordial<1.0mV Consider anteroseptal infarct...Q >30mS, dimin R, V1-V2
--- NOTE | 2024-03-21 16:01 | ED.GENADUL_ITS ---
Discharge Plan Discharge Details Chief Complaint: Dizzy/Sync Primary Care Provider: Dean Camilo ED Provider: Arlyn Garcia Home Meds and New Rx's Prescriptions: No Action mecobalamin (vitamin B12) 1,000 mcg tablet,disintegrating 1,000 mcg sublingual DAILY Rx Instructions: place tablet under tongue and allow to dissolve for at least30 secs before swallowing diltiazem HCl 120 mg capsule,extended release 24hr 120 mg PO DAILY Jardiance 10 mg tablet 10 mg PO DAILY insulin lispro [Humalog KwikPen Insulin] 100 unit/mL insulin pen See Rx Instructions SUBCUT QMEALS Patient Comments: INJECT 12 UNITS SUBCUTANEOUSLY DIRECTED WITH MEALS Rx Instructions: 12 units in AM and 6 units PM subcutaneously with meals; (DME) Depend Underwear For Women Lrg Misc See Rx Instructions .Route Qty: 100 11RF Rx Instructions: Depends pull up large lisinopril 10 mg Tablet 10 mg PO DAILY insulin glargine [Lantus Solostar U-100 Insulin] 100 unit/mL (3 mL) Insulin Pen 20 unit subcut HS Qty: 15 1RF metoprolol succinate 100 mg tablet extended release 24 hr 100 mg PO DAILY Qty: 0 0RF Xarelto 15 mg Tablet 15 mg PO DAILY magnesium oxide [MagOx] 400 MG tablet 400 mg PO DAILY Qty: 30 0RF omeprazole 20 MG capsule,delayed release(DR/EC) 20 mg PO DAILY Qty: 30 0RF furosemide 20 mg tablet 20 mg PO DAILY Qty: 30 0RF Patient Comments: pt unsure if they are taking this medication metformin 500 mg tablet 500 mg PO BID atorvastatin 80 mg tablet 80 mg PO DAILY ciclopirox 0.77 % cream TOPICAL Patient Comments: APPLY TO AFFECTED AND SURROUNDING AREAS OF SKIN TOPICALLY TWO TIMES A DAY IN THE MORNING AND EVENING fluconazole 100 mg Tablet 400 mg PO DAILY Qty: 12 0RF cefpodoxime 200 mg tablet 200 mg PO BID Qty: 10 0RF Rx Instructions: must administer with a meal/food aspirin [Children's Aspirin] 81 mg Tablet,Chewable 81 mg PO DAILY Qty: 0 0RF nystatin 100,000 unit/gram powder 1 applic topical BID Qty: 60 0RF HPI General Date/Time Provider Initiated Documentation: 03/21/24 17:06 . HPI Narrative: Hope is a 73 year old female with history of afib on anticoagulation, T2DM on insuline, CKD, and CVA who presents to the emergency dept today via EMS for evaluation of feeling like she has trouble focusing. She reports symptoms started around 10 am with her heart flipping over and feeling like she was going to pass out. She also reports a mild frontal headache since onset and diarrhea x 3 today. Congestion x 3 days as well. Denies fever/chills, vision changes, sore throat, cough, chest pain, nausea/vomiting, abdominal pain, blood in stool or black/tarry stools. She reports she took all of her meds this morn ing. She has a chronic suprapubic catheter in place. Physical exam reassuring. Hope is alert and oriented, in no acute distress. Tachycardia noted, heart rate 105-110, irregularly irregular. Normal heart sounds. Easy work of breathing, lung sounds clear bilaterally. MMM. PERRL, EOMs intact. integrity manager II-XII grossly intact. 5/5 muscle strength to upper and lower extremities. Abdomen is soft, nondistended, nontender to palpation with normoactive bowel sounds. Barber is draining clear yellow urine. D/dx includes but is not limited to: CVA, acute metabolic or electrolyte derangement, DKA/HHS, acute kidney or liver dysfunction, occult infection such as PNA or UTI, viral illness such as COVID/19 I independently interpreted the following tests: VBG, CBC, and CMP reassuring, baseline anemia and creatinine unchanged from baseline. Hypomagnesemia noted, 1.2. Serial troponins flat. COVID/flu/RSV negative. UA significant for trace intact blood, positive nitrites, small leuks, 10-20 WBCs. While in the emergency department Hope received IV magnesium and IV fluids, reports full improvement of symptoms and resolution of tachycardia. Workup today significant for UTI and hypomagnesemia. I did review previous urine culture results, she does have resistance to nitrofurantoin but susceptible to ciprofloxacin. Review of previous records shows that she was recently discharged from [facility] on cefpodoxime for UTI with sepsis. Recommend close follow-up with PCP for recheck of magnesium and reevaluation of symptoms. Magnesium improved, now 1.7. Lactate improved to 1.5 Bj is able to ambulate without dizziness, heart rate does increase to 109, but returns to 80s to 90s at rest. Workup today reassuring, significant for UTI and hypomagnesemia. Recommend magnesium supplement outpatient and follow-up with PCP for recheck. Will treat with ciprofloxacin for complicated UTI due to indwelling catheter and recent UTI. Reviewed discharge instructions with patient, including red flags indicate need for return to emergency care. Related Data Home Medications ?Medication ?Instructions ?Recorded ?Confirmed lisinopril 10 mg tablet 10 mg PO DAILY 05/12/19 03/21/24 insulin glargine 100 unit/mL (3 20 unit (0.2 mL) subcut HS #15 mL 11/27/20 03/21/24 mL) subcutaneous pen (Lantus Solostar U-100 Insulin) metoprolol succinate 100 mg 100 mg PO DAILY #0 tabs 11/27/20 03/21/24 tablet,extended release 24 hr rivaroxaban 15 mg tablet (Xarelto) 15 mg PO DAILY 07/31/21 03/21/24 furosemide 20 mg tablet 20 mg PO DAILY #30 tabs 08/02/21 03/21/24 magnesium oxide 400 mg (241.3 mg 400 mg PO DAILY #30 tabs 08/02/21 03/21/24 magnesium) tablet (MagOx) omeprazole 20 mg capsule,delayed 20 mg PO DAILY #30 caps 08/02/21 03/21/24 release diltiazem HCl 120 mg 120 mg PO DAILY 10/16/21 03/21/24 capsule,extended release 24 hr empagliflozin 10 mg tablet 10 mg PO DAILY 10/16/21 03/21/24 (Jardiance) insulin lispro 100 unit/mL See Rx Instructions subcut QMEALS 12/17/21 03/21/24 subcutaneous pen (Humalog KwikPen (U-100) Insulin) diaper,brief,adult,disposable #100 ea 09/30/22 03/21/24 (Depend Underwear For Women Large) aspirin 81 mg chewable tablet 81 mg PO DAILY #0 tabs 12/31/22 03/21/24 (Children's Aspirin) nystatin 100,000 unit/gram topical 1 applic topical BID #60 grams 05/12/23 03/21/24 powder atorvastatin 80 mg tablet 80 mg PO DAILY 02/25/24 03/21/24 ciclopirox 0.77 % topical cream 1 applic topical PRN 02/25/24 03/21/24 metformin 500 mg tablet 500 mg PO BID 02/25/24 03/21/24 cefpodoxime 200 mg tablet 200 mg PO BID #10 tabs 02/27/24 03/21/24 fluconazole 100 mg tablet 400 mg (4 x 100 mg) PO DAILY #12 02/27/24 03/21/24 tabs mecobalamin (vitamin B12) 1,000 1,000 mcg sublingual DAILY 03/17/24 03/21/24 mcg disintegrating tablet,sublingual Previous Rx's ?Medication ?Instructions ?Recorded insulin glargine 100 unit/mL (3 20 unit (0.2 mL) subcut HS #15 mL 11/27/20 mL) subcutaneous pen (Lantus Solostar U-100 Insulin) metoprolol succinate 100 mg 100 mg PO DAILY #0 tabs 11/27/20 tablet,extended release 24 hr furosemide 20 mg tablet 20 mg PO DAILY #30 tabs 08/02/21 magnesium oxide 400 mg (241.3 mg 400 mg PO DAILY #30 tabs 08/02/21 magnesium) tablet (MagOx) omeprazole 20 mg capsule,delayed 20 mg PO DAILY #30 caps 08/02/21 release diaper,brief,adult,disposable #100 ea 09/30/22 (Depend Underwear For Women Large) aspirin 81 mg chewable tablet 81 mg PO DAILY #0 tabs 12/31/22 (Children's Aspirin) nystatin 100,000 unit/gram topical 1 applic topical BID #60 grams 05/12/23 powder cefpodoxime 200 mg tablet 200 mg PO BID #10 tabs 02/27/24 fluconazole 100 mg tablet 400 mg (4 x 100 mg) PO DAILY #12 02/27/24 tabs Allergies Allergy/AdvReac Type Severity Reaction Status Date / Time trazodone AdvReac Intermediate NIGHTMARES Verified 03/21/24 22:40 General Stated Complaint: Dizzy/Sync ARGENIS: 3 Review of Systems Narrative: see HPI Exam Const General: cooperative, healthy appearing, comfortable, no acute distress, well developed and well groomed Nutritional Appearance: average body habitus Orientation: alert and oriented x3 HENMT Mouth: oral mucosae normal and moist mucous membranes Eyes Pupils: PERRL EOM: EOM intact bilaterally Neck Neck: normal visual inspection and full ROM Resp Effort & Inspection: normal respiratory effort and able to speak in complete sentences Auscultation: clear to auscultation bilaterally Cardio Rate: tachycardic Rhythm: abnormal rhythm irregularly irregular GI Inspection: normal to inspection and non-distended Palpation: soft, not firm and nontender Auscultation: normal bowel sounds Skin General skin exam: no rashes or lesions noted Neuro General: gait normal, tone normal and moves all extremities Cranial Nerves: CN's II-XI intact bilaterally, PERRL, EOM intact bilaterally, no nystagmus and facial strength normal Cognition: normal cognition Gait: gait assisted (cane) Motor: muscle tone normal throughout Sensory Exam: no sensory deficits noted Course Vital Signs Vital signs: Vital Signs Temperature 36.7 C 03/21/24 15:47 Pulse 110 H 03/21/24 15:47 Respiratory Rate 18 03/21/24 15:47 Blood Pressure 134/119 H 03/21/24 15:47 Pulse Oximetry 94 03/21/24 15:47 Temperature 36.7 C 03/21/24 15:47 Pulse 110 H 03/21/24 15:47 Respiratory Rate 18 03/21/24 15:47 Blood Pressure 134/119 H 03/21/24 15:47 Pulse Oximetry 94 03/21/24 15:47 Oxygen Delivery Method Room Air 03/21/24 15:47 Oxygen Flow Rate 0 03/21/24 15:47 Medical Decision Making Imaging Data Radiologic Study: Radiologist's impression: PROCEDURE INFORMATION: Exam: CTA Head Without And With Contrast, Arteriography Exam date and time: 03/21/2024 6:32 PM Age: 73 years old Clinical indication: Pain: Dizzy; Patient HX: Headache with dizziness TECHNIQUE: Imaging protocol: Computed tomographic angiography of the head without and with contrast. Exam focused on the arteries. 3D rendering (Not supervised by radiologist): MIP and/or 3D reconstructed images were created by the technologist. Radiation o ptimization: All CT scans at this facility use at least one of these dose optimization techniques: automated exposure control; mA and/or kV adjustment per patient size (includes targeted exams where dose is matched to clinical indication); or iterative reconstruction. Contrast material: [id number]; Contrast volume: 70 ml; Contrast route: INTRAVENOUS (IV); COMPARISON: MR ANGIO BRAIN WO 12/30/2022 5:37 PM FINDINGS: ANTERIOR CIRCULATION: Right internal carotid artery: Intracranial segment is patent with no significant stenosis or occlusion. No aneurysm. Right middle cerebral artery: No occlusion or significant stenosis. No aneurysm. Right anterior cerebral artery: No occlusion or significant stenosis. No aneurysm. Left internal carotid artery: Intracranial segment is patent with no significant stenosis. No aneurysm. Left middle cerebral artery: No occlusion or significant stenosis. No aneurysm. Left anterior cerebral artery: No occlusion or significant stenosis. No aneurysm. POSTERIOR CIRCULATION: Right vertebral artery: No occlusion or significant stenosis. No aneurysm. Left vertebral artery: No occlusion or significant stenosis. No aneurysm. Basilar artery: No occlusion or significant stenosis. No aneurysm. Right posterior cerebral artery: No occlusion or significant stenosis. No aneurysm. Left posterior cerebral artery: No occlusion or significant stenosis. No aneurysm. HEAD: Brain: There is no acute intracranial hemorrhage, mass effect or midline shift. No large acute territorial infarct identified. There are patchy regions of hypodensity in the periventricular and subcortical white matter, likely on the basis of chronic microvascular ischemic disease. Cerebral ventricles: The ventricles and sulci are prominent in size, which is at least in part due to global cerebral volume loss. Incidentally noted is asymmetry of lateral ventricles, greater on the left. Clinical correlation recommended. Bones: Unremarkable. No acute fracture. Paranasal sinuses: Visualized sinuses are normal. No fluid levels. Mastoid air cells: Visualized mastoids are normal. No mastoid effusion. Soft tissues: Unremarkable. IMPRESSION: 1. No acute intracranial hemorrhage, mass effect or midline shift. 2. No arterial occlusion or significant stenosis. FINDINGS: Right common carotid artery: No stenosis. No dissection or occlusion. Right internal carotid artery: No stenosis of the extracranial segment. No dissection or occlusion. Right external carotid artery: No occlusion or stenosis of the origin. Left common carotid artery: No stenosis. No dissection or occlusion. Left internal carotid artery: No stenosis of the extracranial segment. No dissection or occlusion. Left external carotid artery: No occlusion or stenosis of the origin. Right vertebral artery: No stenosis. No dissection or occlusion. Left vertebral artery: No stenosis. No dissection or occlusion. Soft tissues: Normal. No significant soft tissue swelling. Bones/joints: No acute fracture. IMPRESSION: No stenosis or occlusion Radiologic Study #2: Radiologist's impression: PROCEDURE INFORMATION: Exam: XR Chest Exam date and time: 03/21/2024 6:58 PM Age: 73 years old Clinical indication: Patient HX: Afib, dizzy TECHNIQUE: Imaging protocol: Radiologic exam of the chest. Views: 2 views. COMPARISON: CT CHEST/ABD/PEL W 02/24/2024 6:34 PM FINDINGS: Lungs: Unremarkable. No consolidation. Pleural spaces: Unremarkable. No pleural effusion. No pneumothorax. Heart/Mediastinum: Unremarkable. No cardiomegaly. Bones/joints: Unremarkable. IMPRESSION: No acute findings Quality:SDOH Health Related Social Needs: Health related social needs inadequate housing, risk o f homeless, food insecurity, transpo insecurity PFSH All Active Problems (Updated 03/17/24 @ 14:44 by Jazmyn Burks) Neuropathy due to type 2 diabetes mellitus (Acute) Onychomycosis (Acute) Fall (Acute) Syncope (Chronic) Atrial fibrillation with rapid ventricular response (Acute) Diabetic hyperosmolar non-ketotic state (Acute) AMS (altered mental status) (Acute) Acute UTI (Acute) Acute hyperglycemia (Acute) Full code status (Acute) Advance care planning (Acute) Brain TIA (Acute) Vitamin B12 deficiency (Acute) CVA (cerebral vascular accident) (Chronic) Impaired instrumental activities of daily living (Acute) DNR (do not resuscitate) (Acute) Loneliness (Acute) Chronic kidney disease (CKD) (Chronic) Venous stasis dermatitis (Acute) Decreased activities of daily living (ADL) (Acute) Need for home health care (Acute) Nephrolithiasis (Chronic) Sacral decubitus ulcer, stage II (Acute) Wound of right lower extremity (Acute) Hyperglycemia (Acute) Trochanteric bursitis, right hip (Acute) Right ankle sprain (Acute) Hip pain, right (Acute) GI bleed (Acute) Fracture, lumbar vertebra, compression (Acute) PSVT (paroxysmal supraventricular tachycardia) (Acute) Poorly controlled diabetes mellitus (Chronic) Transient neurologic deficit (Acute) Fungal dermatitis (Acute) Atrial flutter (Acute) Vaginal bleeding, abnormal (Acute) Atrial fibrillation and flutter (Chronic) Diabetes mellitus type 2 in obese (Chronic) Fracture of femoral neck, right (Acute) Retention, urine (Acute) Medical History (Updated 03/17/24 @ 14:44 by Jazmyn Burks) Beth infection Urinary retention (03/31/16) Infestation by bed bug Hx of malignant melanoma GERD (gastroesophageal reflux disease) H/O menorrhagia Supraventricular tachycardia History of traumatic fracture of hip Unsteady gait Hard of hearing Vision changes Anemia 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 Palliative care encounter Pulmonary hypertension Multiple rib fractures involving four or more ribs Hypertension S/P right hip fracture TIA (transient ischemic attack) Hyperlipidemia Atrial fibrillation CHF (congestive heart failure) LVEF 50-55%, diastolic dysfunction Diabetes Cataracts, bilateral Surgical History History of bilateral cataract extraction History of suprapubic catheter Status post right hip replacement Family History Other Diabetes Heart disease Hyperlipidemia Hypertension Stroke Social History Smoking/Tobacco Use Status: Former Tobacco Use Smoking risk assessment performed?: Yes Alcohol Intake: never Drug use: Never Substance use type: does not use Household members: none Housing: apartment Do you feel safe at home: Yes Do you feel safe in your relationship?: Yes Additional Social history: Lives alone. [address] Does not drive.
[2024-03-21 16:24] LABS: Abs Immature Grans 0.04 10^3/uL (0.0-0.06); Absolute Basophil Count 0.08 10^3/uL (0.0-0.2); Absolute Eosinophil Count 0.37 10^3/uL (0.0-0.7); Absolute Lymphocyte Count 2.62 10^3/uL (1.2-3.4); Absolute Monocyte Count 0.97 10^3/uL (0.1-0.8); Absolute Neutrophil Count 4.83 10^3/uL (1.2-6.7); Basophils % 0.9 %; Eosinophils % 4.2 %; HCT 35.5 % (36.0-46.0); HGB 10.3 g/dL (11.2-15.7); Immature Grans % 0.4 %; Lymphocytes % 29.4 %; MCH 22.7 pg (27.0-33.0); MCV 78 fL (80-95); MPV 10.8 fL (8.0-11.0); Monocytes % 10.9 %; Neutrophils % 54.2 %; Platelet Count 350 10^3/uL (130-400); RBC 4.53 10^6/uL (3.93-5.22); RDW 18.2 % (11.7-14.6); RDW-SD 52.1 fL; WBC 8.91 10^3/uL (4.4-10.8)
[2024-03-21 16:25] LABS: BE (Venous) 1 mmol/L (-2-3); HCO3 (Venous) 26 mmol/L (23-28); O2 Sat (Venous) 80 %; TCO2 (Venous) 24 mmol/L (24-29); pCO2 (Venous) 43 mmHg (41-51); pH (Venous) 7.38 (7.31-7.41); pO2 (Venous) 46 mmHg
[2024-03-21 16:28] LABS: Lactate 2.3 mmol/L (0.6-1.4)
[2024-03-21 16:44] LABS: ALT 19 U/L (14-59); AST 16 U/L (15-37); Albumin 2.9 g/dL (3.4-5.0); Alkaline Phosphatase 61 U/L (46-116); Anion Gap 7.9 mmol/L (3-11); BUN 16 mg/dL (7-18); CO2 26.1 mmol/L (21.0-32.0); CREATININE 1.1 mg/dL (0.55-1.02); Calcium 8.8 mg/dL (8.5-10.1); Chloride 102 mmol/L (98-107); Glucose 169 mg/dL (74-106); Magnesium 1.2 mg/dL (1.8-2.4); Potassium 4.6 mmol/L (3.5-5.1); Sodium 136 mmol/L (136-145); Total Protein 6.9 g/dL (6.4-8.2); Troponin I 6 ng/L (<or=51)
[2024-03-21 17:40] LABS: Lab Add On Test DONE
[2024-03-21 17:53] LABS: PHOSPHORUS 3.8 mg/dL (2.6-4.7)
[2024-03-21 17:53] LABS: COVID-19 PCR Negative (Negative); Influenza A PCR Negative (Negative); Influenza B PCR Negative (Negative); RSV PCR Negative (Negative)
[2024-03-21 17:54] LABS: Source Nasopharynx
[2024-03-21 18:23] LABS: Troponin I 7 ng/L (<or=51)
[2024-03-21] MEDS: MAGNESIUM SULFATE 2 GM/50 ML BAG IVINF (18:33)
[2024-03-21] MEDS: Lactated Ringers 1,000 ML 500 ML IV (18:33)
[2024-03-21] MEDS: Omnipaque 350 MG/ML 100 ML BTL IJ (19:10)
[2024-03-21] MEDS: Normal Saline - Diluent 50 ML VIAL IJ (19:11)
--- NOTE | 2024-03-21 19:52 | DI.CT_ITS ---
Exam(s) CT BRAIN NECK CTA EXAM: CT BRAIN NECK CTA CLINICAL HISTORY: headache with dizziness. TECHNIQUE: Imaging Protocol: Axial CT angiography was performed with multi-slice acquisition and mu lti-planar and MIP reconstructions. CONTRAST MATERIAL: Intravenous: Omnipaque 350 Contrast volume:70 ml COMPARISON: CT CT HEAD CERVICAL SPINE WO from 02/24/2024 FINDINGS: CT Head W/O and W contrast: Ventricles and Extra axial spaces: Stable mild dilatation of the left lateral ventricle. Hemorrhage: None. Cerebral parenchyma: No evidence of acute infarct or mass. Atrophy. Mild white matter changes of small vessel disease. Midline shift: None. Brainstem/Cerebellum: No acute findings.. Calvarium: Normal. Visualized Paranasal sinuses/Mastoids: Small mucous retention cyst at the floor of the right maxillar y sinus. Soft Tissues: Unremarkable. Enhancement: Normal. CTA Brain W: Internal Carotid Arteries: Petrous: Normal. Cavernous: Normal. Cerebral: Normal. Middle Cerebral Arteries: Right: No aneurysm, occlusion or significant stenosis. Left: No aneurysm, occlusion or significant stenosis. Anterior Cerebral Arteries: Right: No aneurysm, occlusion or significant stenosis. Left: No aneurysm, occlusion or significant stenosis. Posterior cerebral Arteries: Right: No aneurysm, occlusion or significant stenosis. Left: No aneurysm, occlusion or significant stenosis. Vertebral Arteries: Right: No aneurysm, occlusion or significant stenosis. Left: No aneurysm, occlusion or significant stenosis. Basilar Artery: No aneurysm, occlusion or significant stenosis. CTA Neck W: Common Carotid: Right: No significant plaque. No dissection, occlusion or significant stenosis. Left: Minimal plaque at the bulb. No dissection, occlusion or significant stenosis. External Carotid: Right: No dissection, occlusion or significant stenosis. Left: No dissection, occlusion or significant stenosis. Internal Carotid: No significant plaque Right: No dissection, occlusion or significant stenosis. Left: No dissection, occlusion or significant stenosis. Vertebral Artery: Right: No dissection, occlusion or significant stenosis. Left: No dissection, occlusion or significant stenosis. Lung Apices: No acute findings. Bones: No acute abnormality. Soft Tissues: Normal. IMPRESSION: 1. CTA brain: Normal CTA examination of the [place]. 2. Head CT: Atrophy and mild white matter changes of small vessel disease. 3. CTA neck: Minimal plaque at the left common carotid bulb. No evidence of dissection or significan t stenosis. RADIATION DOSE DELIVERED: 2,127.68mGy.cm Total DLP DATA REPOSITORY: All CT scans at this facility are submitted to the National Radiology Data Registry (NRDR) Dose Index Registry (DIR) with the [employer] (A[employer]). RADIATION OPTIMIZATION: All CT scans at this facility use at least one of these dose optimization te chniques: automated exposure control; mA and/or kV adjustment per patient size (includes targeted exa ms where dose is matched to clinical indication); or iterative reconstruction.
--- NOTE | 2024-03-21 19:53 | DI.RAD_ITS ---
Exam(s) XR CHEST 2V PA LATERAL EXAM: XR CHEST 2V PA LATERAL CLINICAL HISTORY: afib, dizziness TECHNIQUE: 2D digital imaging was performed. Two views. COMPARISON: CT CT CHEST/ABD/PEL W from 02/24/2024 FINDINGS: HEART: Mildly enlarged. Aorta: Not dilated. PULMONARY VASCULATURE: Normal. MEDIASTINUM: Unremarkable. LUNGS: Clear. PLEURAL SPACE: No pleural effusion or pneumothorax. BONE:Degenerative changes in the spine and shoulders. Stable L1 compression fracture. SOFT TISSUES: Unremarkable. IMPRESSION: No acute abnormality. DATA REPOSITORY: RADIATION DOSE DELIVERED:
[2024-03-21 19:56] LABS: Bilirubin Negative (Negative); Blood Trace-intact (Negative); Clarity Clear (Clear); Glucose 500 mg/dL (Negative); Ketones Negative (Negative); Leukocyte Esterase Small (Negative); Nitrite Positive (Negative); Specific Gravity 1.015 (1.005-1.025); Urobilinogen 0.2 mg/dL (Up to 0.2)
[2024-03-21 19:59] LABS: Troponin I 8 ng/L (<or=51)
[2024-03-21 20:07] LABS: Bacteria Moderate HPF (Negative); Crystals Negative HPF (Negative); Epithelial Cells Negative HPF (Negative); Mucus Negative (Negative); RBC 0-2 HPF (0-2)
[2024-03-21 20:08] LABS: C & S Indicated? Yes
--- NOTE | 2024-03-21 20:09 | DI.VRAD_ITS ---
PROCEDURE INFORMATION: Exam: CTA Head Without And With Contrast, Arteriography Exam date and time: 03/21/2024 6:32 PM Age: 73 years old Clinical indication: Pain: Dizzy; Patient HX: Headache with dizziness TECHNIQUE: Imaging protocol: Computed tomographic angiography of the head without and with contrast. Exam focused on the arteries. 3D rendering (Not supervised by radiologist): MIP and/or 3D reconstructed images were created by the technologist. Radiation optimization: All CT scans at this facility use at least one of these dose optimization techniques: automated exposure control; mA and/or kV adjustment per patient size (includes targeted exams where dose is matched to clinical indication); or iterative reconstruction. Contrast material: [id number]; Contrast volume: 70 ml; Contrast route: INTRAVENOUS (IV); COMPARISON: MR ANGIO BRAIN WO 12/30/2022 5:37 PM FINDINGS: ANTERIOR CIRCULATION: Right internal carotid artery: Intracranial segment is patent with no significant stenosis or occlusion. No aneurysm. Right middle cerebral artery: No occlusion or significant stenosis. No aneurysm. Right anterior cerebral artery: No occlusion or significant stenosis. No aneurysm. Left internal carotid artery: Intracranial segment is patent with no significant stenosis. No aneurysm. Left middle cerebral artery: No occlusion or significant stenosis. No aneurysm. Left anterior cerebral artery: No occlusion or significant stenosis. No aneurysm. POSTERIOR CIRCULATION: Right vertebral artery: No occlusion or significant stenosis. No aneurysm. Left vertebral artery: No occlusion or significant stenosis. No aneurysm. Basilar artery: No occlusion or significant stenosis. No aneurysm. Right posterior cerebral artery: No occlusion or significant stenosis. No aneurysm. Left posterior cerebral artery: No occlusion or significant stenosis. No aneurysm. HEAD: Brain: There is no acute intracranial hemorrhage, mass effect or midline shift. No large acute territorial infarct identified. There are patchy regions of hypodensity in the periventricular and subcortical white matter, likely on the basis of chronic microvascular ischemic disease. Cerebral ventricles: The ventricles and sulci are prominent in size, which is at least in part due to global cerebral volume loss. Incidentally noted is asymmetry of lateral ventricles, greater on the left. Clinical correlation recommended. Bones: Unremarkable. No acute fracture. Paranasal sinuses: Visualized sinuses are normal. No fluid levels. Mastoid air cells: Visualized mastoids are normal. No mastoid effusion. Soft tissues: Unremarkable. IMPRESSION: 1. No acute intracranial hemorrhage, mass effect or midline shift. 2. No arterial occlusion or significant stenosis. PROCEDURE INFORMATION: Exam: CTA Neck Without And With Contrast Exam date and time: 03/21/2024 6:32 PM Age: 73 years old Clinical indication: Pain: Dizzy; Patient HX: Headache with dizziness TECHNIQUE: Imaging protocol: Computed tomographic angiography of the neck without and with contrast. Exam focused on the cervical segments of the vasculature. 3D rendering (Not supervised by radiologist): MIP and/or 3D reconstructed images were created by the technologist. Radiation optimization: All CT scans at this facility use at least one of these dose optimization techniques: automated exposure control; mA and/or kV adjustment per patient size (includes targeted exams where dose is matched to clinical indication); or iterative reconstruction. Contrast material: [id number]; Contrast volume: 70 ml; Contrast route: INTRAVENOUS (IV); COMPARISON: MR ANGIO NECK WO 12/30/2022 5:17 PM FINDINGS: Right common carotid artery: No stenosis. No dissection or occlusion. Right internal carotid artery: No stenosis of the extracranial segment. No dissection or occlusion. Right external carotid artery: No occlusion or stenosis of the origin. Left common carotid artery: No stenosis. No dissection or occlusion. Left internal carotid artery: No stenosis of the extracranial segment. No dissection or occlusion. Left external carotid artery: No occlusion or stenosis of the origin. Right vertebral artery: No stenosis. No dissection or occlusion. Left vertebral artery: No stenosis. No dissection or occlusion. Soft tissues: Normal. No significant soft tissue swelling. Bones/joints: No acute fracture. IMPRESSION: No stenosis or occlusion. REFERENCES: NASCET CRITERIA. The degree of stenosis in the cervical segment of the internal carotid artery is based on NASCET criteria. Normal is no stenosis. Mild is less than 50% stenosis. Moderate is 50-69% stenosis. Severe is 70% to 99% stenosis. Total occlusion is no detectable patent lumen. Dictated and Authenticated by: Sharona Russell MD. Ordering:TOSHIA Stoddard MD
--- NOTE | 2024-03-21 20:11 | DI.VRAD_ITS ---
PROCEDURE INFORMATION: Exam: XR Chest Exam date and time: 03/21/2024 6:58 PM Age: 73 years old Clinical indication: Patient HX: Afib, dizzy TECHNIQUE: Imaging protocol: Radiologic exam of the chest. Views: 2 views. COMPARISON: CT CHEST/ABD/PEL W 02/24/2024 6:34 PM FINDINGS: Lungs: Unremarkable. No consolidation. Pleural spaces: Unremarkable. No pleural effusion. No pneumothorax. Heart/Mediastinum: Unremarkable. No cardiomegaly. Bones/joints: Unremarkable. IMPRESSION: No acute findings. Dictated and Authenticated by: Sharona Russell MD. Ordering:TOSHIA Stoddard MD
[2024-03-21 22:06] LABS: Lactate 1.5 mmol/L (0.6-1.4)
[2024-03-21 22:22] LABS: Magnesium 1.7 mg/dL (1.8-2.4)
== END 2024-03-22 00:06 | disposition home or self-care (01) ==
PROVIDERS: Emergency Provider Nurse Practitioner Family; PCP Physician Assistant
DX: R42 Dizziness and giddiness (principal); R55 Syncope and collapse; E11.22 Type 2 diabetes mellitus with diabetic chronic kidney disease; I13.0 Hypertensive heart and chronic kidney disease with heart failure and stage 1 through stage 4 chronic kidney disease, or unspecified chronic kidney disease; N18.9 Chronic kidney disease, unspecified; I50.32 Chronic diastolic (congestive) heart failure; I48.91 Unspecified atrial fibrillation; E78.5 Hyperlipidemia, unspecified; Z79.4 Long term (current) use of insulin; Z79.84 Long term (current) use of oral hypoglycemic drugs; Z79.01 Long term (current) use of anticoagulants; Z79.82 Long term (current) use of aspirin; Z87.891 Personal history of nicotine dependence; Z86.73 Personal history of transient ischemic attack (TIA), and cerebral infarction without residual deficits
CPT/HCPCS: 70496; 70498; 80053; 82805; 82962; 87077; 87637; 93005; 96365; 96366; 99285; 71046; 81003; 81015; 83605; 83735; 84100; 84484; 85025; 87086; 87186; 93010; 99284; J3475; J3490

== ENCOUNTER 2024-04-14 02:30 | Inpatient (IN) | payer MEDICARE, MEDICAID, SELFPAY ==
[2024-04-14] VITALS (102 sets, daily range): BP systolic 106–155; BP diastolic 48–98; PULSE 75–143; RESP 8–24; TEMP 36.1–37.4; O2SAT 89–100
--- NOTE | 2024-04-14 01:45 | RT.EKG_ITS ---
APPROVED REPORT Exam: Resting ECG Reason for Exam: chest pain Patient Location: E HR:129 bpm ECG Measurements Heart Rate 129 AXIS GA [id number] P [id number] QRSd 82 QRS 52 QT 299 T 66 QTc 438 Conclusion Atrial fibrillation...V-rate 106-153, irreg A-activity Low voltage, extremity and precordial leads...extremity<0.5mV, precordial<1.0mV no ST segment or T wave abnormalities to suggest occlusive [place]
--- NOTE | 2024-04-14 02:15 | DI.RAD_ITS ---
Exam(s) XR PORTABLE CHEST AP EXAM: XR PORTABLE CHEST AP CLINICAL HISTORY: chest pain. TECHNIQUE: 2D digital imaging was performed. COMPARISON: CR,XR XR CHEST 2V PA LATERAL from 03/21/2024 FINDINGS: Single AP portable view. Healed left-sided rib fractures again noted. No acute fractures evident. Heart size is upper normal. The mediastinum is not widened. No infiltrates nor pleural effusions. No pneumothorax. IMPRESSION: No acute pulmonary findings on this single AP portable view of the chest. DATA REPOSITORY: RADIATION DOSE DELIVERED:
[2024-04-14 02:27] LABS: BE (Venous) 2 mmol/L (-2-3); HCO3 (Venous) 26 mmol/L (23-28); O2 Sat (Venous) 43 %; TCO2 (Venous) 25 mmol/L (24-29); pCO2 (Venous) 43 mmHg (41-51); pO2 (Venous) 27 mmHg
--- NOTE | 2024-04-14 02:30 | ED.GENADUL_ITS ---
Discharge Plan Disposition Patient Disposition: Admit to [facility] Condition: Improving Discharge Details Chief Complaint: Chest Pain Clinical Impression: Atrial fibrillation with rapid ventricular response, Acute UTI, Chest pain Primary Care Provider: Dean Camilo ED Provider: Alicia Russell Home Meds and New Rx's Prescriptions: No Action mecobalamin (vitamin B12) 1,000 mcg tablet,disintegrating 1,000 mcg sublingual DAILY Rx Instructions: place tablet under tongue and allow to dissolve for at least30 secs before swallowing diltiazem HCl 120 mg capsule,extended release 24hr 120 mg PO DAILY Jardiance 10 mg tablet 10 mg PO DAILY insulin lispro [Humalog KwikPen Insulin] 100 unit/mL insulin pen See Rx Instructions SUBCUT QMEALS Patient Comments: INJECT 12 UNITS SUBCUTANEOUSLY DIRECTED WITH MEALS Rx Instructions: 12 units in AM and 6 units PM subcutaneously with meals; (DME) Depend Underwear For Women Lrg Misc See Rx Instructions .Route Qty: 100 11RF Rx Instructions: Depends pull up large lisinopril 10 mg Tablet 10 mg PO DAILY insulin glargine [Lantus Solostar U-100 Insulin] 100 unit/mL (3 mL) Insulin Pen 20 unit subcut HS Qty: 15 1RF metoprolol succinate 100 mg tablet extended release 24 hr 100 mg PO DAILY Qty: 0 0RF Xarelto 15 mg Tablet 15 mg PO DAILY magnesium oxide [MagOx] 400 MG tablet 400 mg PO DAILY Qty: 30 0RF omeprazole 20 MG capsule,delayed release(DR/EC) 20 mg PO DAILY Qty: 30 0RF furosemide 20 mg tablet 20 mg PO DAILY Qty: 30 0RF Patient Comments: pt unsure if they are taking this medication metformin 500 mg tablet 500 mg PO BID atorvastatin 80 mg tablet 80 mg PO DAILY ciclopirox 0.77 % cream 1 applic TOPICAL PRN Patient Comments: APPLY TO AFFECTED AND SURROUNDING AREAS OF SKIN TOPICALLY TWO TIMES A DAY IN THE MORNING AND EVENING ciprofloxacin HCl 500 mg tablet 500 mg PO BID Qty: 13 0RF aspirin [Children's Aspirin] 81 mg Tablet,Chewable 81 mg PO DAILY Qty: 0 0RF nystatin 100,000 unit/gram powder 1 applic topical BID Qty: 60 0RF HPI General Mode of arrival: EMS . Date/Time Provider Initiated Documentation: 04/14/24 02:50 . Limitations to Documentation: no limitations . Information obtained by: patient, EMS and old records reviewed . HPI Narrative: 73yo F with hx afib, T2DM, CKD, CHF, HTN, presenting for chest pain and palpitations. Symptoms started around midnight. Pain is dull, radiates to the left arm, and is worse with deep breathing. Had a similar episode around 4pm which resolved after around and hour. Has felt similar pain before, not sure what caused it or how she has been treated for it. No prior heart attacks per patient. No difficulty breathing currently. No lightheadedness or presyncope. Thinks she may have a UTI; chronic indwelling hodge with 'cloudy' urine per pt. No fevers or chills. Chronic yeast rash in pannus, unchanged per patient. Otherwise in her usual state of health with no fevers, chills, nausea, vomiting, worsening LE edema, numbness, weakness, or other concerns. Related Data Home Medications ?Medication ?Instructions ?Recorded ?Confirmed lisinopril 10 mg tablet 10 mg PO DAILY 05/12/19 04/14/24 insulin glargine 100 unit/mL (3 20 unit (0.2 mL) subcut HS #15 mL 11/27/20 04/14/24 mL) subcutaneous pen (Lantus Solostar U-100 Insulin) metoprolol succinate 100 mg 100 mg PO DAILY #0 tabs 11/27/20 04/14/24 tablet,extended release 24 hr rivaroxaban 15 mg tablet (Xarelto) 15 mg PO DAILY 07/31/21 04/14/24 furosemide 20 mg tablet 20 mg PO DAILY #30 tabs 08/02/21 04/14/24 magnesium oxide 400 mg (241.3 mg 400 mg PO DAILY #30 tabs 08/02/21 04/14/24 magnesium) tablet (MagOx) omeprazole 20 mg capsule,delayed 20 mg PO DAILY #30 caps 08/02/21 04/14/24 release diltiazem HCl 120 mg 120 mg PO DAILY 10/16/21 04/14/24 capsule,extended release 24 hr empagliflozin 10 mg tablet 10 mg PO DAILY 10/16/21 04/14/24 (Jardiance) insulin lispro 100 unit/mL See Rx Instructions subcut QMEALS 12/17/21 04/14/24 subcutaneous pen (Humalog KwikPen (U-100) Insulin) diaper,brief,adult,disposable #100 ea 09/30/22 04/14/24 (Depend Underwear For Women Large) aspirin 81 mg chewable tablet 81 mg PO DAILY #0 tabs 12/31/22 04/14/24 (Children's Aspirin) nystatin 100,000 unit/gram topical 1 applic topical BID #60 grams 05/12/23 04/14/24 powder atorvastatin 80 mg tablet 80 mg PO DAILY 02/25/24 04/14/24 ciclopirox 0.77 % topical cream 1 applic topical PRN 02/25/24 04/14/24 metformin 500 mg tablet 500 mg PO BID 02/25/24 04/14/24 mecobalamin (vitamin B12) 1,000 1,000 mcg sublingual DAILY 03/17/24 04/14/24 mcg disintegrating tablet,sublingual ciprofloxacin HCl 500 mg tablet 500 mg PO BID #13 tabs 03/21/24 04/14/24 Previous Rx's ?Medication ?Instructions ?Recorded insulin glargine 100 unit/mL (3 20 unit (0.2 mL) subcut HS #15 mL 11/27/20 mL) subcutaneous pen (Lantus Solostar U-100 Insulin) metoprolol succinate 100 mg 100 mg PO DAILY #0 tabs 11/27/20 tablet,extended release 24 hr furosemide 20 mg tablet 20 mg PO DAILY #30 tabs 08/02/21 magnesium oxide 400 mg (241.3 mg 400 mg PO DAILY #30 tabs 08/02/21 magnesium) tablet (MagOx) omeprazole 20 mg capsule,delayed 20 mg PO DAILY #30 caps 08/02/21 release diaper,brief,adult,disposable #100 ea 09/30/22 (Depend Underwear For Women Large) aspirin 81 mg chewable tablet 81 mg PO DAILY #0 tabs 12/31/22 (Children's Aspirin) nystatin 100,000 unit/gram topical 1 applic topical BID #60 grams 05/12/23 powder ciprofloxacin HCl 500 mg tablet 500 mg PO BID #13 tabs 03/21/24 Allergies Allergy/AdvReac Type Severity Reaction Status Date / Time trazodone AdvReac Intermediate NIGHTMARES Verified 04/14/24 03:05 General Stated Complaint: Chest Pain ARGENIS: 3 Review of Systems Narrative: see HPI Exam Narrative Exam Narrative: General: Alert, well appearing, well nourished, in no acute distress. Head: Normocephalic, atraumatic Neck: Trachea midline, ?Neck supple. ENT: ?MMM.? No oropharygeal lesions or exudate. Cardiac: ?Irregular, no murmurs appreciated Resp: No respiratory distress. CTAB. Abd: ?Soft, non-distended, nontender. Candidal rash in skin folds. : ?No suprapubic tenderness. No CVA tenderness. Hodge in place. Extremities: ?No deformities.? Symmetric nonpitting peripheral edema BLE. Neurologic: GCS 15. ? Moves all extremities freely against gravity Course Vital Signs Vital signs: Vital Signs Temperature 36.7 C 04/14/24 01:50 Pulse 138 H 04/14/24 01:50 Respiratory Rate 23 04/14/24 01:50 Blood Pressure 154/98 H 04/14/24 01:50 Temperature 36.7 C 04/14/24 01:50 Temperature Source Oral 04/14/24 01:50 Pulse 138 H 04/14/24 01:50 Respiratory Rate 23 04/14/24 01:50 Respiratory Effort Normal 04/14/24 01:58 Blood Pressure 154/98 H 04/14/24 01:50 Blood Pressure Position Supine 04/14/24 01:50 Oxygen Delivery Method Room Air 04/14/24 01:50 Oxygen Flow Rate 0 04/14/24 01:50 Pain Level 6 04/14/24 01:50 Medical Decision Making 73yo F with hx afib, T2DM, CKD, CHF, HTN, presenting for chest pain and palpitations. Symptoms started around midnight. HR 130's on arrival, normotensive, vital signs otherwise reassuring. EKG with afib with RVR, no ST segment or T wave abnormalities to suggest occlusive [place]. Will evaluate for underlying provoking causes for compensatory tachycardia prior to treating HR. Labs reviewed as below, CBC reassuring with no leuckocytosis or significant anemia, CMP with no actionable electrolyte abnormalities and no acidosis, VBG normal, coags normal, Mg low (IV repalcement ordered), initial lactate 2.6 (nonspecific) with repeat 1.2, troponin negative x 3 (less likely ACS), BNP somewhat elevated at ~3k (pt does not appear to be floridly volume overloaded or in acute decompensated heart failure), procal 0.1 (less likely sepsis), UA + for infection. CT PE independently reviewed, no large PE on my view, radiology read with no acute findings. UTI treated with IV ceftriaxone. Hodge replaced. Pt SIRS negative, not septic. Given a total of 20mg IV diltazaem and 5mg IV lopressor with improvement in HR to low 100's. Pt reports pain has improved though is still present. Pt lives alone. Given her advanced age, ongoing symptoms, and underlying infection warrants hospital stay for treatment of UTI and afib RVR. Discussed with [facility] hospitalist Dr. Knight and accepted to medicine service. Awaiting transfer to the floor. Imaging Data Radiologic Study: Imaging: CT Scan Radiologist's impression: IMPRESSION: 1. No acute findings to explain reported symptoms 2. Nonacute findings as outlined above Lab Data Lab results reviewed: Yes I reviewed the patient's lab results. Labs: 04/14/24 04:00 Urine - Reflex from Ua Urine Culture - Pending Laboratory Tests Range/Units 04/14/24 04/14/24 04/14/24 02:11 04:00 06:08 WBC (4.4-10.8) 10^3/uL 9.83 RBC (3.93-5.22) 10^6/uL 5.03 Hgb (11.2-15.7) g/dL 11.1 L Hct (36.0-46.0) % 38.9 MCV (80-95) fL 77 L MCH (27.0-33.0) pg 22.1 L MCHC (32.0-36.0) % 28.5 L RDW (11.7-14.6) % 19.9 H Plt Count (130-400) 10^3/uL 542 H MPV (8.0-11.0) fL 9.8 Immature Gran % % 0.6 Neutrophils % % 74.7 Lymphocytes % % 12.6 Monocytes % % 11.5 Eosinophils % % 0.3 Basophils % % 0.3 Nucleated RBC % (0.0-0.3) % 0.0 Absolute Neutrophils (1.2-6.7) 10^3/uL 7.34 H Absolute Lymphocytes (1.2-3.4) 10^3/uL 1.24 Absolute Monocytes (0.1-0.8) 10^3/uL 1.13 H Absolute Eosinophils (0.0-0.7) 10^3/uL 0.03 Absolute Basophils (0.0-0.2) 10^3/uL 0.03 PT (9.1-11.1) sec 11.0 INR (0.9-1.1) 1.1 APTT (23.6-32.8) sec 26.7 VBG pH (7.31-7.41) 7.40 VBG pCO2 (41-51) mmHg 43 VBG pO2 mmHg 27 VBG HCO3 (23-28) mmol/L 26 VBG Total CO2 (24-29) mmol/L 25 VBG O2 Saturation % 43 VBG Base Excess (-2-3) mmol/L 2 VBG Lactate (0.6-1.4) mmol/L 2.6 H* Sodium (136-145) mmol/L 136 Potassium (3.5-5.1) mmol/L 4.9 Chloride (98-107) mmol/L 99 Carbon Dioxide (21.0-32.0) mmol/L 26.4 Anion Gap (3-11) mmol/L 10.6 BUN (7-18) mg/dL 20 H Creatinine (0.55-1.02) mg/dL 1.3 H Est GFR (CKD-EPI 2020) (mL/min/1.73m2) 42.88 Glucose (74-106) mg/dL 424 H Calcium (8.5-10.1) mg/dL 9.5 Magnesium (1.8-2.4) mg/dL 1.5 L Total Bilirubin (0.2-1.0) mg/dL 0.60 AST (15-37) U/L 25 ALT (14-59) U/L 47 Alkaline Phosphatase (46-116) U/L 121 H Troponin I (<or=51) ng/L 10 11 NT-Pro-B Natriuret Pep (<300) pg/mL 3019 H Total Protein (6.4-8.2) g/dL 8.4 H Albumin (3.4-5.0) g/dL 3.3 L Procalcitonin ng/mL 0.1 Urine Color (Yellow) Yellow Urine Clarity (Clear) Cloudy Urine pH (5-8) 7.0 Ur Specific Mcleod (1.005-1.025) 1.015 Urine Protein (Neg-Trace) mg/dL Negative Urine Ketones (Negative) mg/dL Negative Urine Blood (Negative) Trace-intact H Urine Nitrite (Negative) Positive H Urine Bilirubin (Negative) Negative Urine Urobilinogen (Up to 0.2) mg/dL 0.2 Ur Leukocyte Esterase (Negative) Moderate H Urine RBC Not Applicable Urine WBC (0-5) HPF >50 H Ur Epithelial Cells Not Applicable Urine Crystals Not Applicable Urine Bacteria Not Applicable Urine Mucus Not Applicable Ur Culture Indicated? Yes Urine Glucose (Negative) mg/dL >=1000 H Range/Units 04/14/24 07:40 WBC (4.4-10.8) 10^3/uL RBC (3.93-5.22) 10^6/uL Hgb (11.2-15.7) g/dL Hct (36.0-46.0) % MCV (80-95) fL MCH (27.0-33.0) pg MCHC (32.0-36.0) % RDW (11.7-14.6) % Plt Count (130-400) 10^3/uL MPV (8.0-11.0) fL Immature Gran % % Neutrophils % % Lymphocytes % % Monocytes % % Eosinophils % % Basophils % % Nucleated RBC % (0.0-0.3) % Absolute Neutrophils (1.2-6.7) 10^3/uL Absolute Lymphocytes (1.2-3.4) 10^3/uL Absolute Monocytes (0.1-0.8) 10^3/uL Absolute Eosinophils (0.0-0.7) 10^3/uL Absolute Basophils (0.0-0.2) 10^3/uL PT (9.1-11.1) sec INR (0.9-1.1) APTT (23.6-32.8) sec VBG pH (7.31-7.41) VBG pCO2 (41-51) mmHg VBG pO2 mmHg VBG HCO3 (23-28) mmol/L VBG Total CO2 (24-29) mmol/L VBG O2 Saturation % VBG Base Excess (-2-3) mmol/L VBG Lactate (0.6-1.4) mmol/L 1.2 Sodium (136-145) mmol/L 139 Potassium (3.5-5.1) mmol/L 4.6 Chloride (98-107) mmol/L 104 Carbon Dioxide (21.0-32.0) mmol/L 26.5 Anion Gap (3-11) mmol/L 8.5 BUN (7-18) mg/dL 16 Creatinine (0.55-1.02) mg/dL 1.0 Est GFR (CKD-EPI 2020) (mL/min/1.73m2) 58.75 Glucose (74-106) mg/dL 312 H Calcium (8.5-10.1) mg/dL 8.8 Magnesium (1.8-2.4) mg/dL 1.9 Total Bilirubin (0.2-1.0) mg/dL AST (15-37) U/L ALT (14-59) U/L Alkaline Phosphatase (46-116) U/L Troponin I (<or=51) ng/L NT-Pro-B Natriuret Pep (<300) pg/mL Total Protein (6.4-8.2) g/dL Albumin (3.4-5.0) g/dL Procalcitonin ng/mL Urine Color (Yellow) Urine Clarity (Clear) Urine pH (5-8) Ur Specific Mcleod (1.005-1.025) Urine Protein (Neg-Trace) mg/dL Urine Ketones (Negative) mg/dL Urine Blood (Negative) Urine Nitrite (Negative) Urine Bilirubin (Negative) Urine Urobilinogen (Up to 0.2) mg/dL Ur Leukocyte Esterase (Negative) Urine RBC Urine WBC (0-5) HPF Ur Epithelial Cells Urine Crystals Urine Bacteria Urine Mucus Ur Culture Indicated? Urine Glucose (Negative) mg/dL Quality:[facility] Health Related Social Needs: Health related social needs inadequate housing(Z59.1), housing instability, housed, with risk of homelessness(Z59.811), food insecurity(Z59.41), transportation insecurity(Z59.82) PFSH All Active Problems (Updated 04/14/24 @ 08:19 by Alicia Russell MD) Chest pain (Acute) Acute UTI (Acute) Atrial fibrillation with rapid ventricular response (Acute) Hypomagnesemia (Acute) Acute UTI (Acute) Neuropathy due to type 2 diabetes mellitus (Acute) Onychomycosis (Acute) Fall (Acute) Syncope (Chronic) Atrial fibrillation with rapid ventricular response (Acute) Diabetic hyperosmolar non-ketotic state (Acute) AMS (altered mental status) (Acute) Acute UTI (Acute) Acute hyperglycemia (Acute) Full code status (Acute) Advance care planning (Acute) Brain TIA (Acute) Vitamin B12 deficiency (Acute) CVA (cerebral vascular accident) (Chronic) Impaired instrumental activities of daily living (Acute) DNR (do not resuscitate) (Acute) Loneliness (Acute) Chronic kidney disease (CKD) (Chronic) Venous stasis dermatitis (Acute) Decreased activities of daily living (ADL) (Acute) Need for home health care (Acute) Nephrolithiasis (Chronic) Sacral decubitus ulcer, stage II (Acute) Wound of right lower extremity (Acute) Hyperglycemia (Acute) Trochanteric bursitis, right hip (Acute) Right ankle sprain (Acute) Hip pain, right (Acute) GI bleed (Acute) Fracture, lumbar vertebra, compression (Acute) PSVT (paroxysmal supraventricular tachycardia) (Acute) Poorly controlled diabetes mellitus (Chronic) Transient neurologic deficit (Acute) Fungal dermatitis (Acute) Atrial flutter (Acute) Vaginal bleeding, abnormal (Acute) Atrial fibrillation and flutter (Chronic) Diabetes mellitus type 2 in obese (Chronic) Fracture of femoral neck, right (Acute) Retention, urine (Acute) Medical History (Updated 04/14/24 @ 08:19 by Alicia Russell MD) Beth infection Urinary retention (03/31/16) Infestation by bed bug Hx of malignant melanoma GERD (gastroesophageal reflux disease) H/O menorrhagia Supraventricular tachycardia History of traumatic fracture of hip Unsteady gait Hard of hearing Vision changes Anemia 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 Palliative care encounter Pulmonary hypertension Multiple rib fractures involving four or more ribs Hypertension S/P right hip fracture TIA (transient ischemic attack) Hyperlipidemia Atrial fibrillation CHF (congestive heart failure) LVEF 50-55%, diastolic dysfunction Diabetes Cataracts, bilateral Surgical History History of bilateral cataract extraction History of suprapubic catheter Status post right hip replacement Family History Other Diabetes Heart disease Hyperlipidemia Hypertension Stroke Social History Smoking/Tobacco Use Status: Former Tobacco Use Smoking risk assessment performed?: Yes Alcohol Intake: never Drug use: Never Substance use type: does not use Household members: none Housing: apartment Do you feel safe at home: Yes Do you feel safe in your relationship?: Yes Additional Social history: Lives alone[address] Does not drive.
[2024-04-14 02:31] LABS: Abs Immature Grans 0.06 10^3/uL (0.0-0.06); Absolute Basophil Count 0.03 10^3/uL (0.0-0.2); Absolute Eosinophil Count 0.03 10^3/uL (0.0-0.7); Absolute Lymphocyte Count 1.24 10^3/uL (1.2-3.4); Absolute Monocyte Count 1.13 10^3/uL (0.1-0.8); Absolute Neutrophil Count 7.34 10^3/uL (1.2-6.7); Basophils % 0.3 %; Eosinophils % 0.3 %; HCT 38.9 % (36.0-46.0); HGB 11.1 g/dL (11.2-15.7); Immature Grans % 0.6 %; Lymphocytes % 12.6 %; MCH 22.1 pg (27.0-33.0); MCHC 28.5 % (32.0-36.0); MCV 77 fL (80-95); MPV 9.8 fL (8.0-11.0); Monocytes % 11.5 %; Neutrophils % 74.7 %; Platelet Count 542 10^3/uL (130-400); RBC 5.03 10^6/uL (3.93-5.22); RDW 19.9 % (11.7-14.6); WBC 9.83 10^3/uL (4.4-10.8)
[2024-04-14 02:38] LABS: Lactate 2.6 mmol/L (0.6-1.4)
[2024-04-14 02:44] LABS: INR 1.1 (0.9-1.1); PTT Activated 26.7 sec (23.6-32.8)
--- NOTE | 2024-04-14 02:45 | DI.CT_ITS ---
Exam(s) CT CHEST PE CTA EXAM: CT CHEST PE CTA CLINICAL HISTORY: chest pain. TECHNIQUE: Imaging Protocol: CT angiography of the chest was performed using pulmonary embolus jennifer col. Multi planar reconstructions were performed. CONTRAST MATERIAL: Intravenous: Omnipaque 350 Contrast volume: 100 cc COMPARISON: CT CT CHEST/ABD/PEL W from 02/24/2024 CR,XR XR PORTABLE CHEST AP from 04/14/2024 FINDINGS: CHEST: PULMONARY ARTERIES: There are no intraluminal filling defects to suggest acute pulmonary emboli. LUNGS: There are no infiltrates nor evidence of pulmonary infarction.. No ominous pulmonary nodules. There are no pleural effusions. MEDIASTINUM: There is no hilar nor mediastinal adenopathy. CARDIAC: Heart size is upper normal. There is no pericardial effusion.Diameter of the ascending thor acic aorta is increased, measuring 4.4 cm. Diameter of the mid aortic arch is increased measuring 3 cm. Diameter of the proximal descending thoracic aorta also measures 3 cm. Mid-lower thoracic desce nding aorta exhibits upper normal diameter. No contrast reflux into the intrahepatic IVC evident. T here is no significant shift of the interventricular septum. PARTIALLY VISUALIZED UPPERMOST ABDOMEN: No obvious findings OSSEOUS: There are multiple healed left-sided rib fractures involving 5th, 6, and 7th and 8th ribs. No acute fractures evident.Also nonacute appearing compression fracture of L1.. IMPRESSION: 1. No evidence of acute pulmonary emboli. No evidence of pulmonary infarction. No infiltrates no pl eural effusions. 2. Enlarged ascending thoracic aorta with diameter 4.4 cm. No pericardial effusion. 3. Nonacute osseous findings in the ribs as well as nonacute appearing fracture of L1 vertebral body. RADIATION DOSE DELIVERED: 214.41mGy.cm Total DLP DATA REPOSITORY: All CT scans at this facility are submitted to the National Radiology Data Registry (NRDR) Dose Index Registry (DIR) with the [employer] (ACR). RADIATION OPTIMIZATION: All CT scans at this facility use at least one of these dose optimization te chniques: automated exposure control; mA and/or kV adjustment per patient size (includes targeted exa ms where dose is matched to clinical indication); or iterative reconstruction.
[2024-04-14 02:54] LABS: Magnesium 1.5 mg/dL (1.8-2.4)
[2024-04-14 02:57] LABS: ALT 47 U/L (14-59); AST 25 U/L (15-37); Albumin 3.3 g/dL (3.4-5.0); Alkaline Phosphatase 121 U/L (46-116); Anion Gap 10.6 mmol/L (3-11); BUN 20 mg/dL (7-18); CO2 26.4 mmol/L (21.0-32.0); CREATININE 1.3 mg/dL (0.55-1.02); Calcium 9.5 mg/dL (8.5-10.1); Chloride 99 mmol/L (98-107); Estimated GFR 42.88 (mL/min/1.73m2); Glucose 424 mg/dL (74-106); NT-proBNP 3019 pg/mL (<300); Potassium 4.9 mmol/L (3.5-5.1); Sodium 136 mmol/L (136-145); Total Protein 8.4 g/dL (6.4-8.2)
[2024-04-14 03:02] LABS: Troponin I 10 ng/L (<or=51)
[2024-04-14 03:24] LABS: Procalcitonin 0.1 ng/mL
--- NOTE | 2024-04-14 03:40 | DI.VRAD_ITS ---
PROCEDURE INFORMATION: Exam: XR Chest Exam date and time: 04/14/2024 2:43 AM Age: 73 years old Clinical indication: Chest wall pain; Additional info: Chest pain TECHNIQUE: Imaging protocol: Radiologic exam of the chest. Views: 1 view. COMPARISON: CR XR CHEST 2V PA LATERAL 03/21/2024 6:58 PM FINDINGS: Lungs: Mild pulmonary vascular redistribution. Pleural spaces: No large pleural effusion seen. Heart/Mediastinum: Cardiac silhouette magnified by AP technique. Bones/joints: Nonacute rib deformities. IMPRESSION: No acute findings to explain reported symptoms. Dictated and Authenticated by: Penny Celestin MD. Ordering:CAROLINA Vargas MD
[2024-04-14] MEDS: Omnipaque 350 MG/ML 100 ML BTL IJ (03:55)
[2024-04-14] MEDS: Normal Saline - Diluent 50 ML VIAL IJ (03:55)
[2024-04-14 04:10] LABS: Bilirubin Negative (Negative); Blood Trace-intact (Negative); Clarity Cloudy (Clear); Glucose >=1000 mg/dL (Negative); Ketones Negative (Negative); Leukocyte Esterase Moderate (Negative); Nitrite Positive (Negative); Specific Gravity 1.015 (1.005-1.025); Urobilinogen 0.2 mg/dL (Up to 0.2)
[2024-04-14 04:14] LABS: C & S Indicated? Yes; WBC >50 HPF (0-5)
[2024-04-14] MEDS: MAGNESIUM SULFATE 2 GM/50 ML BAG IV_INF (04:14)
--- NOTE | 2024-04-14 04:30 | DI.VRAD_ITS ---
PROCEDURE INFORMATION: Exam: CTA Chest With Contrast Exam date and time: 04/14/2024 3:47 AM Age: 73 years old Clinical indication: Chest wall pain; Additional info: Chest pain TECHNIQUE: Imaging protocol: Computed tomographic angiography of the chest with contrast. Exam focused on the arteries. 3D rendering (Not supervised by radiologist): MIP and/or 3D reconstructed images were created by the technologist. Contrast material: OMNI 350; Contrast volume: 100 ml; Contrast route: INTRAVENOUS (IV); COMPARISON: CT CHEST/ABD/PEL W 02/24/2024 6:34 PM FINDINGS: Pulmonary arteries: No pulmonary embolus is appreciated. Mildly prominent central pulmonary arteries. Correlate clinically for pulmonary hypertension. Aorta: Atherosclerotic changes in the aorta and its branches. Lungs: Ground-glass opacities in the lungs, likely underinflation. Pleural spaces: No pleural effusion. Heart: No pericardial effusion. Coronary arteries: Coronary artery calcifications. Lymph nodes: Nonspecific mediastinal lymph nodes. Bones/joints: Chronic compression deformity at L1. Nonacute rib deformities. Soft tissues: No acute pertinent abnormality seen. IMPRESSION: 1. No acute findings to explain reported symptoms. 2. Nonacute findings as outlined above. Dictated and Authenticated by: Penny Celestin MD. Ordering:CAROLINA Vargas MD
[2024-04-14] MEDS: cefTRIAXone 1 GM/50 ML BAG IVPB (04:45)
[2024-04-14] MEDS: dilTIAZem 25 MG/5 ML VIAL 10 MG IVP ×2 (04:46→05:10)
[2024-04-14] MEDS: Acetaminophen 500 MG TAB 1000 MG PO (06:06)
[2024-04-14] MEDS: Metoprolol 5 MG/5 ML VIAL IVP (06:34)
[2024-04-14 06:40] LABS: Troponin I 11 ng/L (<or=51)
[2024-04-14] MEDS: Insulin Aspart 100 UNITS/ML UNIT 20 UNITS SC (07:43)
[2024-04-14 07:48] LABS: Lactate 1.2 mmol/L (0.6-1.4)
--- NOTE | 2024-04-14 08:03 | HPE_ITS ---
Date of service: 04/14/24 Time of Service: 13:40 Assessment and Plan Assessment and plan (1) Atrial fibrillation with rapid ventricular response: Status: Acute Assessment and plan: - Patient initially presented with chest pain that was ultimately determined to be secondary to A-fib RVR -EKG did not show any ST elevations, ST depressions or T wave inversions -Troponins were also 2 times negative -While in the emergency department patient received a total of 10 mg IV Lopressor and 20 mg IV diltiazem -This significantly improved her heart rate and is most recently down to 75 bpm -Her home rate medications have been held -Will continue to monitor patient's heart rates and will initiate her home that rate medications as indicated -Likely cause of exacerbation of A-fib RVR secondary to UTI as discussed below (2) Acute UTI: Status: Acute Assessment and plan: - Patient has chronic indwelling catheter which she noted as being cloudy -UA showed nitrates, leuk esterase, WBCs and bacteria -Was started on ceftriaxone in the emergency department -Will continue antibiotics and follow-up urine culture (3) Neuropathy due to type 2 diabetes mellitus: Status: Acute Assessment and plan: - Continue home insulin regimen (4) Chronic kidney disease (CKD): Status: Chronic Assessment and plan: - Creatinine at baseline 1.0 (5) (HFpEF) heart failure with preserved ejection fraction: Status: Acute Assessment and plan: - Continue home atorvastatin, aspirin, Lasix, lisinopril History of Present Illness History of Present Illness Chief Complaint: Chest pain Narrative: 73-year-old female with a past medical history of paroxysmal A-fib on Xarelto, IDDM, CKD, and HFpEF who presented to the emergency department complaints of chest pain. Patient stated symptoms started around midnight on the morning of 04/14/2024 when she was describing it as a dull achy type of substernal chest pain that radiated to her left arm that is worse with inspiration. She also states that she had an episode the day prior around 4 PM that resolved on its own after about an hour. She denied any lightheadedness, dizziness, nausea, vomiting, shortness of breath or diarrhea. In the emergency department the patient was noted as being in A-fib with RVR with heart rates in the 150s. EKG showed A-fib RVR and troponins were 2 times negative. Otherwise patient had normal vital signs, CBC and CMP. However, she was also noted to have a UTI as her UA showed nitrates, leuk esterase and WBCs with bacteria. She was started on ceftriaxone for urinary tract infection. As for her A-fib RVR, she was given a total of 2 doses of 5 mg IV Lopressor and 2 doses of 10 mg IV diltiazem which did improve her heart rate down to the 100s at rest. Given the amount of IV rate medication the patient was given and that she was soon due for her home metoprolol and p.o. diltiazem, in combination with UTI emergency room edition paged hospitalist for admission with the patient with A- fib RVR and urinary tract infection. Review of Systems All systems reviewed & are unremarkable except as noted in HPI and below PFSH All Active Problems (Updated 04/14/24 @ 13:46 by Audie Knight MD) (HFpEF) heart failure with preserved ejection fraction (Acute) Chest pain (Acute) Acute UTI (Acute) Atrial fibrillation with rapid ventricular response (Acute) Hypomagnesemia (Acute) Acute UTI (Acute) Neuropathy due to type 2 diabetes mellitus (Acute) Onychomycosis (Acute) Fall (Acute) Syncope (Chronic) Atrial fibrillation with rapid ventricular response (Acute) Diabetic hyperosmolar non-ketotic state (Acute) AMS (altered mental status) (Acute) Acute UTI (Acute) Acute hyperglycemia (Acute) Full code status (Acute) Advance care planning (Acute) Brain TIA (Acute) Vitamin B12 deficiency (Acute) CVA (cerebral vascular accident) (Chronic) Impaired instrumental activities of daily living (Acute) DNR (do not resuscitate) (Acute) Loneliness (Acute) Chronic kidney disease (CKD) (Chronic) Venous stasis dermatitis (Acute) Decreased activities of daily living (ADL) (Acute) Need for home health care (Acute) Nephrolithiasis (Chronic) Sacral decubitus ulcer, stage II (Acute) Wound of right lower extremity (Acute) Hyperglycemia (Acute) Trochanteric bursitis, right hip (Acute) Right ankle sprain (Acute) Hip pain, right (Acute) GI bleed (Acute) Fracture, lumbar vertebra, compression (Acute) PSVT (paroxysmal supraventricular tachycardia) (Acute) Poorly controlled diabetes mellitus (Chronic) Transient neurologic deficit (Acute) Fungal dermatitis (Acute) Atrial flutter (Acute) Vaginal bleeding, abnormal (Acute) Atrial fibrillation and flutter (Chronic) Diabetes mellitus type 2 in obese (Chronic) Fracture of femoral neck, right (Acute) Retention, urine (Acute) Medical History (Updated 04/14/24 @ 13:46 by Audie Knight MD) Beth infection Urinary retention (03/31/16) Infestation by bed bug Hx of malignant melanoma GERD (gastroesophageal reflux disease) H/O menorrhagia Supraventricular tachycardia History of traumatic fracture of hip Unsteady gait Hard of hearing Vision changes Anemia 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 Palliative care encounter Pulmonary hypertension Multiple rib fractures involving four or more ribs Hypertension S/P right hip fracture TIA (transient ischemic attack) Hyperlipidemia Atrial fibrillation CHF (congestive heart failure) LVEF 50-55%, diastolic dysfunction Diabetes Cataracts, bilateral Surgical History History of bilateral cataract extraction History of suprapubic catheter Status post right hip replacement Family History Other Diabetes Heart disease Hyperlipidemia Hypertension Stroke Social History Smoking/Tobacco Use Status: Former Tobacco Use Smoking risk assessment performed?: Yes Alcohol Intake: never Drug use: Never Substance use type: does not use Household members: none Housing: apartment Do you feel safe at home: Yes Do you feel safe in your relationship?: Yes Additional Social history: Lives alone. [address] Does not drive. Meds Allergies and Home Medications Allergies Allergy/AdvReac Type Severity Reaction Status Date / Time trazodone AdvReac Intermediate NIGHTMARES Verified 04/14/24 03:05 Home Medications ?Medication ?Instructions ?Recorded ?Confirmed ?Type lisinopril 10 mg tablet 10 mg PO DAILY 05/12/19 04/14/24 History insulin glargine 100 unit/mL (3 20 unit (0.2 mL) subcut HS #15 mL 11/27/20 04/14/24 Rx mL) subcutaneous pen (Lantus Solostar U-100 Insulin) metoprolol succinate 100 mg 100 mg PO DAILY #0 tabs 11/27/20 04/14/24 Rx tablet,extended release 24 hr rivaroxaban 15 mg tablet (Xarelto) 15 mg PO DAILY 07/31/21 04/14/24 History furosemide 20 mg tablet 20 mg PO DAILY #30 tabs 08/02/21 04/14/24 Rx magnesium oxide 400 mg (241.3 mg 400 mg PO DAILY #30 tabs 08/02/21 04/14/24 Rx magnesium) tablet (MagOx) omeprazole 20 mg capsule,delayed 20 mg PO DAILY #30 caps 08/02/21 04/14/24 Rx release diltiazem HCl 120 mg 120 mg PO DAILY 10/16/21 04/14/24 History capsule,extended release 24 hr empagliflozin 10 mg tablet 10 mg PO DAILY 10/16/21 04/14/24 History (Jardiance) insulin lispro 100 unit/mL See Rx Instructions subcut QMEALS 12/17/21 04/14/24 History subcutaneous pen (Humalog KwikPen (U-100) Insulin) diaper,brief,adult,disposable #100 ea 09/30/22 04/14/24 Rx (Depend Underwear For Women Large) aspirin 81 mg chewable tablet 81 mg PO DAILY #0 tabs 12/31/22 04/14/24 Rx (Children's Aspirin) nystatin 100,000 unit/gram topical 1 applic topical BID #60 grams 05/12/23 04/14/24 Rx powder atorvastatin 80 mg tablet 80 mg PO DAILY 02/25/24 04/14/24 History ciclopirox 0.77 % topical cream 1 applic topical PRN 02/25/24 04/14/24 History metformin 500 mg tablet 500 mg PO BID 02/25/24 04/14/24 History mecobalamin (vitamin B12) 1,000 1,000 mcg sublingual DAILY 03/17/24 04/14/24 History mcg disintegrating tablet,sublingual ciprofloxacin HCl 500 mg tablet 500 mg PO BID #13 tabs 03/21/24 04/14/24 Rx Exam Narrative Exam Narrative: Well-appearing older female laying in bed in no acute distress, ANO x 4, heart irregularly irregular with rate in the 90s, lungs clear to auscultation bilaterally, abdomen soft, nontender, nondistended Results Labs 04/14/24 02:11 04/14/24 07:40 Labs: Laboratory Results - last 24 hr 04/14/24 04/14/24 04/14/24 02:11 04:00 06:08 WBC 9.83 RBC 5.03 Hgb 11.1 L Hct 38.9 MCV 77 L MCH 22.1 L MCHC 28.5 L RDW 19.9 H Plt Count 542 H MPV 9.8 Immature Gran % 0.6 Neutrophils % 74.7 Lymphocytes % 12.6 Monocytes % 11.5 Eosinophils % 0.3 Basophils % 0.3 Nucleated RBC % 0.0 Absolute Neutrophils 7.34 H Absolute Lymphocytes 1.24 Absolute Monocytes 1.13 H Absolute Eosinophils 0.03 Absolute Basophils 0.03 PT 11.0 INR 1.1 APTT 26.7 VBG pH 7.40 VBG pCO2 43 VBG pO2 27 VBG HCO3 26 VBG Total CO2 25 VBG O2 Saturation 43 VBG Base Excess 2 VBG Lactate 2.6 H* Sodium 136 Potassium 4.9 Chloride 99 Carbon Dioxide 26.4 Anion Gap 10.6 BUN 20 H Creatinine 1.3 H Est GFR (CKD-EPI 2020) 42.88 Glucose 424 H Calcium 9.5 Magnesium 1.5 L Total Bilirubin 0.60 AST 25 ALT 47 Alkaline Phosphatase 121 H Troponin I 10 11 NT-Pro-B Natriuret Pep 3019 H Total Protein 8.4 H Albumin 3.3 L Procalcitonin 0.1 Urine Color Yellow Urine Clarity Cloudy Urine pH 7.0 Ur Specific [place] 1.015 Urine Protein Negative Urine Ketones Negative Urine Blood Trace-intact H Urine Nitrite Positive H Urine Bilirubin Negative Urine Urobilinogen 0.2 Ur Leukocyte Esterase Moderate H Urine RBC Not Applicable Urine WBC >50 H Ur Epithelial Cells Not Applicable Urine Crystals Not Applicable Urine Bacteria Not Applicable Urine Mucus Not Applicable Ur Culture Indicated? Yes Urine Glucose >=1000 H 04/14/24 07:40 WBC RBC Hgb Hct MCV MCH MCHC RDW Plt Count MPV Immature Gran % Neutrophils % Lymphocytes % Monocytes % Eosinophils % Basophils % Nucleated RBC % Absolute Neutrophils Absolute Lymphocytes Absolute Monocytes Absolute Eosinophils Absolute Basophils PT INR APTT VBG pH VBG pCO2 VBG pO2 VBG HCO3 VBG Total CO2 VBG O2 Saturation VBG Base Excess VBG Lactate 1.2 Sodium Potassium Chloride Carbon Dioxide Anion Gap BUN Creatinine Est GFR (CKD-EPI 2020) Glucose Calcium Magnesium Total Bilirubin AST ALT Alkaline Phosphatase Troponin I NT-Pro-B Natriuret Pep Total Protein Albumin Procalcitonin Urine Color Urine Clarity Urine pH Ur Specific [place] Urine Protein Urine Ketones Urine Blood Urine Nitrite Urine Bilirubin Urine Urobilinogen Ur Leukocyte Esterase Urine RBC Urine WBC Ur Epithelial Cells Urine Crystals Urine Bacteria Urine Mucus Ur Culture Indicated? Urine Glucose Last Vital Signs Temp 98.1 F 04/14/24 01:50 Pulse 115 H 04/14/24 06:34 Resp 14 04/14/24 06:30 BP 134/85 04/14/24 06:01 Pulse Ox 92 04/14/24 06:30 Time Spent Time spent with Patient: >75 minutes Time was spent: preparing to see the patient(eg.review tests), obtaining and/or reviewing separately otained hiistory, ordering medications,tests, procedures, referring, communicating with other health spiritual care coordinator, indepentently interpreting results, counseling the patient and care coordination
[2024-04-14 08:08] LABS: Anion Gap 8.5 mmol/L (3-11); BUN 16 mg/dL (7-18); CO2 26.5 mmol/L (21.0-32.0); Calcium 8.8 mg/dL (8.5-10.1); Chloride 104 mmol/L (98-107); Estimated GFR 58.75 (mL/min/1.73m2); Glucose 312 mg/dL (74-106); Magnesium 1.9 mg/dL (1.8-2.4); Potassium 4.6 mmol/L (3.5-5.1); Sodium 139 mmol/L (136-145)
--- NOTE | 2024-04-14 09:24 | W.PC.ACHO ---
Registration Status: Primary Language: Preferred Language: ED Information & Data Chief Complaint Chest Pain 04/14/24 02:30 Triage Note Pt c/o L sided CP radiating 04/14/24 01:50 to the L arm and difficulty breathing that started at midnight. Pt w hx of AFIB. Pt has BL lower extremity edema which is chronic for pt. 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 AJ=[id number]. Medical / Surgical History (Last Updated 03/17/24 @ 14:44 by Jazmyn Burks) Beth infection Urinary retention (03/31/16) Infestation by bed bug Hx of malignant melanoma GERD (gastroesophageal reflux disease) H/O menorrhagia Supraventricular tachycardia History of traumatic fracture of hip Unsteady gait Hard of hearing Vision changes Anemia 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 Palliative care encounter Pulmonary hypertension Multiple rib fractures involving four or more ribs Hypertension S/P right hip fracture TIA (transient ischemic attack) Hyperlipidemia Atrial fibrillation CHF (congestive heart failure) Diabetes Cataracts, bilateral (Last Reviewed 02/25/24 @ 01:28 by Sunil Borrero) History of bilateral cataract extraction History of suprapubic catheter Status post right hip replacement Most Recent Vital Signs Temperature 36.4 C L 04/14/24 09:14 Temperature Source Tympanic 04/14/24 09:14 Pulse 120 H 04/14/24 09:14 Pulse 110 H 04/14/24 08:35 Respiratory Rate 18 04/14/24 09:14 Respiratory Effort Normal 04/14/24 01:58 Blood Pressure 115/81 04/14/24 09:14 Blood Pressure Mean 85 04/14/24 08:35 Blood Pressure Position Supine 04/14/24 01:50 Pulse Oximetry 96 04/14/24 09:14 Oxygen Delivery Method Room Air 04/14/24 09:14 Oxygen Flow Rate 0 04/14/24 09:14 Pain Level 3 04/14/24 08:41 Allergies trazodone Adverse Reaction (Intermediate, Verified 04/14/24 03:05) NIGHTMARES Active Medications Generic Name Dose Route Start Last Admin Trade Name Freq PRN Reason Stop Dose Admin Iohexol 100 ml 04/14/24 04:00 04/14/24 03:55 Omnipaque 350 Mg/Ml 100 Ml Btl IJ 05/14/24 23:59 100 ml DIRECTED DANNI Administration Sodium Chloride 50 ml 04/14/24 04:00 04/14/24 03:55 Normal Saline - Diluent 50 Ml Vial IJ 50 ml .FOR DI USE DANNI Administration IV IV Catheter Type [Left Saline Lock Antecubital] IV Catheter Gauge [Left 20 Antecubital] Diet Orders Category Date Time Status Diabetes Consistent CHO/Heart Healthy [DIET] Nutrition 04/14/24 Lunch Active Diagnostics 04/14/24 04/14/24 04/14/24 Range/Units 07:40 07:00 06:08 WBC (4.4-10.8) 10^3/uL RBC (3.93-5.22) 10^6/uL Hgb (11.2-15.7) g/dL Hct (36.0-46.0) % MCV (80-95) fL MCH (27.0-33.0) pg MCHC (32.0-36.0) % RDW (11.7-14.6) % Plt Count (130-400) 10^3/uL MPV (8.0-11.0) fL Immature Gran % % Neutrophils % % Lymphocytes % % Monocytes % % Eosinophils % % Basophils % % Nucleated RBC % (0.0-0.3) % Absolute Neutrophils (1.2-6.7) 10^3/uL Absolute Lymphocytes (1.2-3.4) 10^3/uL Absolute Monocytes (0.1-0.8) 10^3/uL Absolute Eosinophils (0.0-0.7) 10^3/uL Absolute Basophils (0.0-0.2) 10^3/uL PT (9.1-11.1) sec INR (0.9-1.1) APTT (23.6-32.8) sec VBG pH (7.31-7.41) VBG pCO2 (41-51) mmHg VBG pO2 mmHg VBG HCO3 (23-28) mmol/L VBG Total CO2 (24-29) mmol/L VBG O2 Saturation % VBG Base Excess (-2-3) mmol/L VBG Lactate 1.2 Pending (0.6-1.4) mmol/L Sodium 139 (136-145) mmol/L Potassium 4.6 (3.5-5.1) mmol/L Chloride 104 (98-107) mmol/L Carbon Dioxide 26.5 (21.0-32.0) mmol/L Anion Gap 8.5 (3-11) mmol/L BUN 16 (7-18) mg/dL Creatinine 1.0 (0.55-1.02) mg/dL Est GFR (CKD-EPI 2020) 58.75 (mL/min/1.73m2) Glucose 312 H (74-106) mg/dL Calcium 8.8 (8.5-10.1) mg/dL Magnesium 1.9 (1.8-2.4) mg/dL Total Bilirubin (0.2-1.0) mg/dL AST (15-37) U/L ALT (14-59) U/L Alkaline Phosphatase (46-116) U/L Troponin I 11 (<or=51) ng/L NT-Pro-B Natriuret Pep (<300) pg/mL Total Protein (6.4-8.2) g/dL Albumin (3.4-5.0) g/dL Procalcitonin ng/mL Urine Color (Yellow) Urine Clarity (Clear) Urine pH (5-8) Ur Specific [place] (1.005-1.025) Urine Protein (Neg-Trace) mg/dL Urine Ketones (Negative) mg/dL Urine Blood (Negative) Urine Nitrite (Negative) Urine Bilirubin (Negative) Urine Urobilinogen (Up to 0.2) mg/dL Ur Leukocyte Esterase (Negative) Urine RBC Urine WBC (0-5) HPF Ur Epithelial Cells Urine Crystals Urine Bacteria Urine Mucus Ur Culture Indicated? Urine Glucose (Negative) mg/dL 04/14/24 04/14/24 Range/Units 04:00 02:11 WBC 9.83 (4.4-10.8) 10^3/uL RBC 5.03 (3.93-5.22) 10^6/uL Hgb 11.1 L (11.2-15.7) g/dL Hct 38.9 (36.0-46.0) % MCV 77 L (80-95) fL MCH 22.1 L (27.0-33.0) pg MCHC 28.5 L (32.0-36.0) % RDW 19.9 H (11.7-14.6) % Plt Count 542 H (130-400) 10^3/uL MPV 9.8 (8.0-11.0) fL Immature Gran % 0.6 % Neutrophils % 74.7 % Lymphocytes % 12.6 % Monocytes % 11.5 % Eosinophils % 0.3 % Basophils % 0.3 % Nucleated RBC % 0.0 (0.0-0.3) % Absolute Neutrophils 7.34 H (1.2-6.7) 10^3/uL Absolute Lymphocytes 1.24 (1.2-3.4) 10^3/uL Absolute Monocytes 1.13 H (0.1-0.8) 10^3/uL Absolute Eosinophils 0.03 (0.0-0.7) 10^3/uL Absolute Basophils 0.03 (0.0-0.2) 10^3/uL PT 11.0 (9.1-11.1) sec INR 1.1 (0.9-1.1) APTT 26.7 (23.6-32.8) sec VBG pH 7.40 (7.31-7.41) VBG pCO2 43 (41-51) mmHg VBG pO2 27 mmHg VBG HCO3 26 (23-28) mmol/L VBG Total CO2 25 (24-29) mmol/L VBG O2 Saturation 43 % VBG Base Excess 2 (-2-3) mmol/L VBG Lactate 2.6 H* (0.6-1.4) mmol/L Sodium 136 (136-145) mmol/L Potassium 4.9 (3.5-5.1) mmol/L Chloride 99 (98-107) mmol/L Carbon Dioxide 26.4 (21.0-32.0) mmol/L Anion Gap 10.6 (3-11) mmol/L BUN 20 H (7-18) mg/dL Creatinine 1.3 H (0.55-1.02) mg/dL Est GFR (CKD-EPI 2020) 42.88 (mL/min/1.73m2) Glucose 424 H (74-106) mg/dL Calcium 9.5 (8.5-10.1) mg/dL Magnesium 1.5 L (1.8-2.4) mg/dL Total Bilirubin 0.60 (0.2-1.0) mg/dL AST 25 (15-37) U/L ALT 47 (14-59) U/L Alkaline Phosphatase 121 H (46-116) U/L Troponin I 10 (<or=51) ng/L NT-Pro-B Natriuret Pep 3019 H (<300) pg/mL Total Protein 8.4 H (6.4-8.2) g/dL Albumin 3.3 L (3.4-5.0) g/dL Procalcitonin 0.1 ng/mL Urine Color Yellow (Yellow) Urine Clarity Cloudy (Clear) Urine pH 7.0 (5-8) Ur Specific [place] 1.015 (1.005-1.025) Urine Protein Negative (Neg-Trace) mg/dL Urine Ketones Negative (Negative) mg/dL Urine Blood Trace-intact H (Negative) Urine Nitrite Positive H (Negative) Urine Bilirubin Negative (Negative) Urine Urobilinogen 0.2 (Up to 0.2) mg/dL Ur Leukocyte Esterase Moderate H (Negative) Urine RBC Not Applicable Urine WBC >50 H (0-5) HPF Ur Epithelial Cells Not Applicable Urine Crystals Not Applicable Urine Bacteria Not Applicable Urine Mucus Not Applicable Ur Culture Indicated? Yes Urine Glucose >=1000 H (Negative) mg/dL 04/14/24 04:00 Urine Culture - Pending Urine - Reflex from Ua [id number] Documentation Fingerstick Glucose Start: 04/14/24 07:20 Freq: Status: Active Protocol: Activity Type Activity Date Activity User E-sign Co-sign Detail Recorded Client Recorded Date Recorded By Document 04/14/24 08:15 BKG DAEMON(3) [id number] 04/14/24 08:16 BKG DAEMON(4) Intake and Output - 24 Hour Total 04/14/24 01:44 thru 04/14/24 09:19 Intake Total 100 Balance 100 Weight 95.5 kg Intake: IV 100 Falls Risk Assessment History of Falls Previous History 04/14/24 01:58 Contributing Factors Unstable,Impairments, 04/14/24 01:58 Incontinence,Medications Ambulatory Aids Uses ambulatory device + 04/14/24 01:58 Tubes/Lines With any additional score 04/14/24 01:58 Gait Evaluation W/any additional score 04/14/24 01:58 Cognition No cognitive impairment 04/14/24 01:58 Fall Total Score 97 04/14/24 01:58 Level of Risk Maximum Risk 04/14/24 01:58 v v v v v v v v v Sending and/or Receiving Nurses: Please use comment section below to note any information pertinent to the patient hand-off not included above. Information / Comments: PT arrives to unit via stretcher, put on contact d/t active bed bug infestation. Report received from: Loni Guzman RN
[2024-04-14] MEDS: Magnesium Oxide 400 MG TAB PO (10:21)
[2024-04-14] MEDS: Furosemide 20 MG TAB PO (10:21)
[2024-04-14] MEDS: Atorvastatin 40 MG TAB 80 MG PO (10:21)
[2024-04-14] MEDS: Metoprolol CR 100 MG TABCR PO (10:21)
[2024-04-14] MEDS: Empaglifozin 10 MG TAB PO (10:21)
[2024-04-14] MEDS: Aspirin 81 MG CHEW PO (10:21)
[2024-04-14] MEDS: dilTIAZem CD 120 MG CAPCR PO (10:21)
[2024-04-14] MEDS: Lisinopril 10 MG TAB PO (10:21)
[2024-04-14] MEDS: Omeprazole 20 MG CAPCR PO (10:21)
[2024-04-14 11:09] LABS: Lactate 3.4 mmol/L (0.6-1.4)
[2024-04-14] MEDS: Cyanocobalamin 500 MCG TAB 1000 MCG PO (12:31)
[2024-04-14] MEDS: Metoprolol 25 MG TAB PO (14:29)
--- NOTE | 2024-04-14 16:11 | WOUNDCONS_ITS ---
Date of service: 04/14/24 Time of Service: 15:15 Wound Initial Evaluation Narrative Narrative: Diabetic patient with fluid filled blister on left fourth dorsal distal metatarsal. No redness of surrounding tissue noted. Also has blood filled blister to left fifth dorsal distal metatarsal. No redness to surrounding tissue. Temperature same as surrounding tissue. Pt states all of her toes at sore and also needs nail care. Due to pt diabetic status on insulin, will defer consult to podiatry. Clinical Lead nurse informed. Body Four View: 2 1. Left fourth and fifth dorsal distal metatarsals Recomendation Recomendation:: Podiatry consult Treatment Time Time Total Time Spent with Patient: 10 minutes
[2024-04-14] MEDS: Nystatin CREAM 30 GM TUBE TP ×2 (16:42→19:56)
[2024-04-14] MEDS: Insulin Aspart 300 UNITS/3 ML PEN 6 UNITS SC (17:04)
[2024-04-14] MEDS: Rivaroxaban 15 MG TABLET PO (17:34)
[2024-04-14] MEDS: Normal Saline Flush 10 ML SYR IVP (19:56)
[2024-04-14] MEDS: Insulin Glargine 300 UNITS/3 ML PEN 50 UNITS SC (19:56)
[2024-04-15] VITALS (9 sets, daily range): BP systolic 102–133; BP diastolic 59–81; PULSE 89–117; RESP 14–18; TEMP 36.1–36.8; O2SAT 90–96
[2024-04-15] MEDS: Normal Saline Flush 10 ML SYR IVP ×3 (00:19→20:20)
[2024-04-15] MEDS: Metoprolol 5 MG/5 ML VIAL 2.5 MG IVP (00:19)
[2024-04-15 07:05] LABS: HCT 32.5 % (36.0-46.0); HGB 9.4 g/dL (11.2-15.7); MCH 22.3 pg (27.0-33.0); MCHC 28.9 % (32.0-36.0); MCV 77 fL (80-95); MPV 10.2 fL (8.0-11.0); Platelet Count 499 10^3/uL (130-400); RBC 4.21 10^6/uL (3.93-5.22); RDW 19.5 % (11.7-14.6); RDW-SD 53.6 fL; WBC 7.89 10^3/uL (4.4-10.8)
[2024-04-15 07:21] LABS: Anion Gap 9.6 mmol/L (3-11); BUN 23 mg/dL (7-18); CO2 26.4 mmol/L (21.0-32.0); CREATININE 1.3 mg/dL (0.55-1.02); Calcium 8.8 mg/dL (8.5-10.1); Chloride 103 mmol/L (98-107); Estimated GFR 42.88 (mL/min/1.73m2); Glucose 213 mg/dL (74-106); Magnesium 1.7 mg/dL (1.8-2.4); Potassium 4.4 mmol/L (3.5-5.1); Sodium 139 mmol/L (136-145)
[2024-04-15] MEDS: Insulin Aspart 300 UNITS/3 ML PEN 12 UNITS SC ×3 (09:19→17:42)
[2024-04-15] MEDS: Nystatin CREAM 30 GM TUBE TP ×3 (09:21→20:20)
[2024-04-15] MEDS: dilTIAZem CD 120 MG CAPCR PO (09:21)
[2024-04-15] MEDS: Empaglifozin 10 MG TAB PO (09:22)
[2024-04-15] MEDS: Atorvastatin 40 MG TAB 80 MG PO (09:22)
[2024-04-15] MEDS: Aspirin 81 MG CHEW PO (09:22)
[2024-04-15] MEDS: Furosemide 20 MG TAB PO (09:22)
[2024-04-15] MEDS: Magnesium Oxide 400 MG TAB PO (09:22)
[2024-04-15] MEDS: Omeprazole 20 MG CAPCR PO (09:22)
[2024-04-15] MEDS: Metoprolol CR 50 MG TABCR 150 MG PO (09:22)
[2024-04-15] MEDS: Cyanocobalamin 500 MCG TAB 1000 MCG PO (09:22)
[2024-04-15] MEDS: Lisinopril 10 MG TAB PO (09:22)
--- NOTE | 2024-04-15 09:59 | INITIAL_ITS ---
Date of service: 04/15/24 Time of Service: 09:59 Care Management Initial Assmt Initial Assessment Reason for Hospitalization: UTI, AFIB RVR Functional Status/Living Situation Patient Presentation: CM is unable to reach patient by phone. Hope is on precautions, unclear etiology. CM will follow. Town of Residence: [place] Resides with: Alone Significant Other/Family: Local (Daughter Katharina lives in [place]. ) Employment Status: Retired Instrumental Activities of Daily Living (ADLs): Independent Medications Medication Management: No Issues/Barriers identified Physical Functioning/Mobility Assistive Device: Walker, Grab bars, tub seat/bench, senior housing, [facility] RN/PT/OT/TELEPHONE CLAIMS REPRESENTATIVE Advance Directives Advance Directives: Do you have an Advance Directive: N 07/08/22 13:33 AD On File at [facility]: N 07/08/22 13:33 Date Asked 04/14/24 04/14/24 08:47 AD Date Reviewed COLST On File at [facility] Yes 04/29/23 05:38 COLST Date Scanned 04/29/23 04/29/23 05:38 Code Status Resuscitation Status Full Code Insurance Coverage/Financial Issues Insurance: [facility] MCR replacement [facility] Care Team Visit Care Team Role Provider Type Dean Camilo Primary Care Provider [facility] STAFF PHYSICIAN Alicia Russell MD Emergency Provider [facility] STAFF PHYSICIAN Audie Knight MD Admit Provider [facility] STAFF PHYSICIAN Attending Provider Discharge Potential Discharge Needs: PCP F/U Appt Anticipated Barriers to Discharge: Medical Status Patient/Family Education Needs: Review discharge instructions, discuss Ask Me Three Transportation: RCT Plan: Inpatient admission for Afib with RVR; requires cardiac monitoring and medication management. Anticipate, patient will discharge home with resumption of RN/PT/OT/TELEPHONE CLAIMS REPRESENTATIVE services. Podiatry is unavailable today, outpatient follow up will be on 04/27/24, as scheduled. She will transport home via RCT, coordinated by CM. She will follow up with her PCP and discharge plan of care. CM will continue to follow. PFSH All Active Problems (Updated 04/14/24 @ 13:46 by Audie Knight MD) (HFpEF) heart failure with preserved ejection fraction (Acute) Chest pain (Acute) Acute UTI (Acute) Atrial fibrillation with rapid ventricular response (Acute) Hypomagnesemia (Acute) Acute UTI (Acute) Neuropathy due to type 2 diabetes mellitus (Acute) Onychomycosis (Acute) Fall (Acute) Syncope (Chronic) Atrial fibrillation with rapid ventricular response (Acute) Diabetic hyperosmolar non-ketotic state (Acute) AMS (altered mental status) (Acute) Acute UTI (Acute) Acute hyperglycemia (Acute) Full code status (Acute) Advance care planning (Acute) Brain TIA (Acute) Vitamin B12 deficiency (Acute) CVA (cerebral vascular accident) (Chronic) Impaired instrumental activities of daily living (Acute) DNR (do not resuscitate) (Acute) Loneliness (Acute) Chronic kidney disease (CKD) (Chronic) Venous stasis dermatitis (Acute) Decreased activities of daily living (ADL) (Acute) Need for home health care (Acute) Nephrolithiasis (Chronic) Sacral decubitus ulcer, stage II (Acute) Wound of right lower extremity (Acute) Hyperglycemia (Acute) Trochanteric bursitis, right hip (Acute) Right ankle sprain (Acute) Hip pain, right (Acute) GI bleed (Acute) Fracture, lumbar vertebra, compression (Acute) PSVT (paroxysmal supraventricular tachycardia) (Acute) Poorly controlled diabetes mellitus (Chronic) Transient neurologic deficit (Acute) Fungal dermatitis (Acute) Atrial flutter (Acute) Vaginal bleeding, abnormal (Acute) Atrial fibrillation and flutter (Chronic) Diabetes mellitus type 2 in obese (Chronic) Fracture of femoral neck, right (Acute) Retention, urine (Acute) Medical History (Updated 04/14/24 @ 13:46 by Audie Knight MD) Beth infection Urinary retention (03/31/16) Infestation by bed bug Hx of malignant melanoma GERD (gastroesophageal reflux disease) H/O menorrhagia Supraventricular tachycardia History of traumatic fracture of hip Unsteady gait Hard of hearing Vision changes Anemia 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 Palliative care encounter Pulmonary hypertension Multiple rib fractures involving four or more ribs Hypertension S/P right hip fracture TIA (transient ischemic attack) Hyperlipidemia Atrial fibrillation CHF (congestive heart failure) LVEF 50-55%, diastolic dysfunction Diabetes Cataracts, bilateral Surgical History History of bilateral cataract extraction History of suprapubic catheter Status post right hip replacement Family History Other Diabetes Heart disease Hyperlipidemia Hypertension Stroke Social History (Reviewed 02/25/24 @ 01:28 by Sunil Olmedo Smoking/Tobacco Use Status: Former Tobacco Use Smoking risk assessment performed?: Yes Alcohol Intake: never Drug use: Never Substance use type: does not use Household members: none Housing: apartment Do you feel safe at home: Yes Do you feel safe in your relationship?: Yes Additional Social history: Lives alone[address] Does not drive. SDOH(Care Management) Screening Will the Patient Participate in the Screening?: Yes Do you worry about having a steady place to live?: no Problems where you live: pests such as bugs, ants or mice In the past 12 months, have you had to go without electric, gas, oil or water in your home?: no Have you or anyone in your house had to go without enough food to eat?: no Has lack of transportation kept you from medical appointments or from doing things needed for daily living?: no Has anyone in your support network made you feel unsafe for any reason?: no Health Related Social Needs Health related social needs: inadequate housing(Z59.1) Anticipated HH Services Anticipated HH Services at Discharge [facility] Resumption, TELEPHONE CLAIMS REPRESENTATIVE, OT, PT and RN Anticipated Date of Discharge: 04/16/24. Following Provider: Dean Camilo.
--- NOTE | 2024-04-15 12:37 | PGE_ITS ---
Date of Service Date of service: 04/15/24 Time of Service: 12:37 Assessment and Plan Assessment and plan (1) Atrial fibrillation with rapid ventricular response: Status: Acute Assessment and plan: - Patient initially presented with chest pain that was ultimately determined to be secondary to A-fib RVR -EKG did not show any ST elevations, ST depressions or T wave inversions -Troponins were also 2 times negative -While in the emergency department patient received a total of 10 mg IV Lopressor and 20 mg IV diltiazem -This significantly improved her heart rate and is most recently down to 75 bpm upon admission -patient recieved home top XL and dilt, but required additional 1x 5mg IV lopressor overnight 04/14 -increased top XL from 100mg to 150mg AM 04/15, HRs down to 70-80's -Likely cause of exacerbation of A-fib RVR secondary to UTI as discussed below (2) Acute UTI: Status: Acute Assessment and plan: - Patient has chronic indwelling catheter which she noted as being cloudy -UA showed nitrates, leuk esterase, WBCs and bacteria -Was started on ceftriaxone in the emergency department -Will continue antibiotics and follow-up urine culture (3) Neuropathy due to type 2 diabetes mellitus: Status: Acute Assessment and plan: - Continue home insulin regimen (4) Chronic kidney disease (CKD): Status: Chronic Assessment and plan: - Creatinine at baseline 1.0 (5) (HFpEF) heart failure with preserved ejection fraction: Status: Acute Assessment and plan: - Continue home atorvastatin, aspirin, Lasix, lisinopril Subjective Subjective Interval history since last seen: Patient states that she is feeling better, and understands that we are continuing to work on controlling her HR. Exam Narrative Exam Narrative: Well-appearing older female laying in bed in no acute distress, ANO x 4, heart irregularly irregular with rate in the 90s, lungs clear to auscultation bilaterally, abdomen soft, nontender, nondistended Objective Last Vital Signs Temp 97.0 F L 04/15/24 11:20 Pulse 92 H 04/15/24 11:20 Resp 18 04/15/24 11:20 BP 117/72 04/15/24 11:20 Pulse Ox 96 04/15/24 11:20 Laboratory Results - last 24 hr 04/15/24 06:14 WBC 7.89 RBC 4.21 Hgb 9.4 L Hct 32.5 L MCV 77 L MCH 22.3 L MCHC 28.9 L RDW 19.5 H Plt Count 499 H MPV 10.2 Sodium 139 Potassium 4.4 Chloride 103 Carbon Dioxide 26.4 Anion Gap 9.6 BUN 23 H Creatinine 1.3 H Est GFR (CKD-EPI 2020) 42.88 Glucose 213 H Calcium 8.8 Magnesium 1.7 L Time Spent with Patient Time Spent with Patient: >50 minutes Time was spent: preparing to see the patient(eg.review tests), obtaining and/or reviewing separately otained hiistory, ordering medications,tests, procedures, referring, communicating with other health care administrative tech, indepentently interpreting results, counseling the patient and care coordination
[2024-04-15] MEDS: Insulin Glargine 300 UNITS/3 ML PEN 50 UNITS SC (17:37)
[2024-04-15] MEDS: Rivaroxaban 15 MG TABLET PO (17:38)
[2024-04-15] MEDS: Acetaminophen 325 MG TAB PO (23:42)
[2024-04-16 03:10] VITALS: BP 135/75; PULSE 95; RESP 14; TEMP 36.2; O2SAT 92
[2024-04-16] MEDS: Omeprazole 20 MG CAPCR PO (07:33)
[2024-04-16 08:10] VITALS: BP 118/79; PULSE 96; RESP 15; TEMP 36.4; O2SAT 96
[2024-04-16] MEDS: Insulin Aspart 300 UNITS/3 ML PEN 12 UNITS SC ×2 (08:16→12:00)
[2024-04-16] MEDS: Atorvastatin 40 MG TAB 80 MG PO (08:18)
[2024-04-16] MEDS: Normal Saline Flush 10 ML SYR IVP (08:18)
[2024-04-16] MEDS: Metoprolol CR 50 MG TABCR 150 MG PO (08:18)
[2024-04-16] MEDS: Cyanocobalamin 500 MCG TAB 1000 MCG PO (08:19)
[2024-04-16] MEDS: Furosemide 20 MG TAB PO (08:19)
[2024-04-16] MEDS: Empaglifozin 10 MG TAB PO (08:19)
[2024-04-16] MEDS: Magnesium Oxide 400 MG TAB PO (08:19)
[2024-04-16] MEDS: Lisinopril 10 MG TAB PO (08:19)
[2024-04-16] MEDS: dilTIAZem CD 120 MG CAPCR PO (08:19)
[2024-04-16] MEDS: Aspirin 81 MG CHEW PO (08:19)
[2024-04-16] MEDS: Nystatin CREAM 30 GM TUBE TP ×2 (08:20→15:12)
[2024-04-16] MEDS: Sulfameth/Trimeth DS TAB 1 TAB PO (09:12)
[2024-04-16] MEDS: Cefpodoxime 200 MG TAB PO (09:12)
--- NOTE | 2024-04-16 11:51 | PHACLINREV_ITS ---
Pharmacy Admission Review Admission Clinical Review Admission Pharmacy Review: (HFpEF) heart failure with preserved ejection fraction (Acute) Acute UTI (Acute) Atrial fibrillation with rapid ventricular response (Acute) Neuropathy due to type 2 diabetes mellitus (Acute) trazodone Adverse Reaction (Intermediate, Verified 04/14/24 03:05) [place] Resuscitation Status Full Code Height 5 ft 6 in Weight 95.5 kg Pharmacy Admission Review Renal Dosing Renal Dosing: BUN 23 mg/dL (7-18) H 04/15/24 06:14 Creatinine 1.3 mg/dL (0.55-1.02) H 04/15/24 06:14 Medications needing adjustments: Reviewed (CrCl 43.52 mL/min) List of meds needing interventions: Current medications are okay Anticoagulation Anticoagulation: Hgb 9.4 g/dL (11.2-15.7) L 04/15/24 06:14 Hct 32.5 % (36.0-46.0) L 04/15/24 06:14 Plt Count 499 10^3/uL (130-400) H 04/15/24 06:14 INR 1.1 (0.9-1.1) 04/14/24 02:11 Creatinine 1.3 mg/dL (0.55-1.02) H 04/15/24 06:14 DVT Prophylaxis: Reviewed Medications: Rivaroxaban (15mg daily) Relevant Labs Relevant Labs: Sodium 139 mmol/L (136-145) 04/15/24 06:14 Potassium 4.4 mmol/L (3.5-5.1) 04/15/24 06:14 Chloride 103 mmol/L (98-107) 04/15/24 06:14 Magnesium 1.7 mg/dL (1.8-2.4) L 04/15/24 06:14 Electrolytes, C-Reactive P, ESR: Reviewed (No new labs for today) DM Control DM Control: Glucose 213 mg/dL (74-106) H 04/15/24 06:14 Finger Stick Blood Glucose 184 0807 Finger Stick Blood Glucose 184 0807 DM Control: Reviewed Insulin Dosing, Diabetic Medication: Has order for SS insulin, Jardiance 10mg daily and 50 units of glargine at bedtime. Cardiac Review Cardiac Review: Troponin I 11 ng/L (<or=51) 04/14/24 06:08 NT-Pro-B Natriuret Pep 3019 pg/mL (<300) H 04/14/24 02:11 BP, HR, EF%: Reviewed (BP WNL, HR 96) List meds needing interventions: Has order for metoprolol XL 150mg daily, lisinopril 10mg daily, furosemide 20mg daily and diltiazem 120mg CD daily QTc Review QTc: Reviewed (438 from 04/14/25) IV to PO Switch IV Medications: Reviewed Home Meds Home Med List reviewed: Intervened Relevent Home Meds Not ordered & why?: ciclopirox (PRN) and metformin (has order for SS insulin) We received an updated med list from patients PCP, following changes were made to home med list. - removed diltiazem, furosemide and lisinopril - changed Xarelto from 15mg daily to 20mg daily Made provider aware of the removed medications. All 3 currently have active ord ers, he plans on discontinuing the furosemide but would like to keep her on the lisinopril and diltiazem for now. Current Xarelto order is for 15mg daily, did not change to 20mg as CrCl is < 50 and recommended dose is 15mg Current Meds Current Medication Order Review: Reviewed Pharmacy Antibiotic Review Relevant Labs: WBC 7.89 10^3/uL (4.4-10.8) 04/15/24 06:14 Procalcitonin 0.1 ng/mL 04/14/24 02:11 Temperature 36.4 C Temperature 36.2 C Microbiology 04/14/24 04:00 Urine Culture - Preliminary Urine - Reflex from Ua Staphylococcus Aureus Pseudomonas aeruginosa Pharmacy Antibiotic Activity: Abx regimen adjustment and C/S review Comments: Patient received 1 dose of ceftriaxone in ED. H+P said to continue antibiotics but no orders were ever put in. I reached out to provider to let them know that orders had not been put in and that the urine culture was growing staph aureus and Pseudomonas. Provider then put in orders for cefpodoxime and Bactrim PO. Cefpodoxime was originally put in as 400mg BID, I spoke with provider regarding recommended dose of 200mg BID for UTI treatment. Provider was okay with order being changed to 200mg BID. Per morning meeting, patient is likely going home today.
--- NOTE | 2024-04-16 12:14 | W.PM.DS.N ---
Date of service: 04/16/24 Time of Service: 12:43 DS: Diagnosis Discharge Diagnosis (1) Atrial fibrillation with rapid ventricular response: Status: Acute (2) Acute UTI: Status: Acute (3) Neuropathy due to type 2 diabetes mellitus: Status: Acute (4) Chronic kidney disease (CKD): Status: Chronic (5) (HFpEF) heart failure with preserved ejection fraction: Status: Acute Discharge Plan Disposition Patient Disposition: Home Condition: Good Discharge Details Reason For Visit: UTI, A-Fib RVR Admit Date/Time: 04/14/24 08:03 Admit Provider: Audie Knight Attending Provider: Audie Knight Primary Care Provider: Dean Camilo Hospital Course Hospital Course: Patient initially presented with chest pain and was ruled out as STEMI or NSTEMI ultimately determined to be secondary to exacerbation of A-fib with RVR likely precipitated by urinary tract infection. Patient's urine culture growing staph and Pseudomonas and patient was initially on ceftriaxone with transition to Bactrim and cefpodoxime which will become continued for additional 6 days at discharge. Additionally, patient received IV Lopressor and diltiazem in the emergency department which did lead to improvement of her rate, and ultimately was restarted on her home diltiazem and had her long-acting metoprolol increased from 100 to 150 mg daily which led to stabilization of her heart rate. Given the patient's UTI was appropriately treated, and heart rate stabilized, was determined that she was stable for discharge home. Additionally, there was some concern for diabetic wounds on her feet for which patient will receive outpatient podiatry referral. Home Meds and New Rx's Prescriptions: New cefpodoxime 200 mg Tablet 200 mg PO BID Qty: 12 0RF metoprolol succinate 50 mg Tablet Extended Release 24 Hr 150 mg PO DAILY Qty: 90 0RF sulfamethoxazole-trimethoprim 800-160 mg Tablet 1 tab PO BID Qty: 12 0RF lisinopril 10 mg Tablet 10 mg PO DAILY Qty: 90 0RF diltiazem HCl 120 mg Capsule,Extended Release 24hr 120 mg PO DAILY Qty: 90 0RF Xarelto 15 mg Tablet 15 mg PO DAILY@1700 Qty: 90 0RF Continued Jardiance 10 mg tablet 10 mg PO DAILY insulin lispro [Humalog KwikPen Insulin] 100 unit/mL insulin pen 12 unit SUBCUT QMEALS Patient Comments: INJECT 12 UNITS SUBCUTANEOUSLY DIRECTED WITH MEALS magnesium oxide [MagOx] 400 MG tablet 400 mg PO DAILY Qty: 30 0RF omeprazole 20 MG capsule,delayed release(DR/EC) 20 mg PO DAILY Qty: 30 0RF metformin 500 mg tablet 500 mg PO BID atorvastatin 80 mg tablet 80 mg PO DAILY ciclopirox 0.77 % cream 1 applic TOPICAL PRN Patient Comments: APPLY TO AFFECTED AND SURROUNDING AREAS OF SKIN TOPICALLY TWO TIMES A DAY IN THE MORNING AND EVENING insulin glargine [Lantus Solostar U-100 Insulin] 100 unit/mL (3 mL) Insulin Pen 50 unit subcut HS Patient Comments: takes 50 units per patient cyanocobalamin (vitamin B-12) 1,000 mcg tablet 1,000 mcg PO DAILY Patient Comments: TAKE ONE TABLET BY MOUTH EVERY DAY aspirin [Children's Aspirin] 81 mg Tablet,Chewable 81 mg PO DAILY Qty: 0 0RF nystatin 100,000 unit/gram powder 1 applic topical BID Qty: 60 0RF Discontinued metoprolol succinate 100 mg tablet extended release 24 hr 100 mg PO DAILY Qty: 0 0RF Xarelto 20 mg tablet 20 mg PO QPM Patient Comments: TAKE ONE TABLET BY MOUTH EVERY EVENING WITH MEALS No Action (DME) Depend Underwear For Women Lrg Misc See Rx Instructions .Route Qty: 100 11RF Rx Instructions: Depends pull up large Discharge Instructions Activity:: Activity as Tolerated Equipment/Supplies:: No Equipment Needed Diet:: As Tolerated Discharge Orders Discharge Orders: Discharge Order (Routine); Ordered 04/16/24 Ordered By: Audie Knight DS: Summary Time Spent with Patient providing and/or coordinating discharge services: Greater than 30 minutes Status at Discharge Functional status at discharge: independent ambulation Overall status at discharge: patient is back to baseline Mental Status: mental status grossly normal Speech and Movement: speech and movement normal Mood: congruent mood Affect: normal affect Quality:SDOH Health Related Social Needs: Health related social needs inadequate housing(Z59.1) Referrals and interventions: Pt already receives services Exam Narrative Exam Narrative: Well-appearing older female laying in bed in no acute distress, ANO x 4, heart irregularly irregular with rate in the 90s, lungs clear to auscultation bilaterally, abdomen soft, nontender, nondistended Psych Mental Status: mental status grossly normal Speech and Movement: speech and movement normal Mood: congruent mood Affect: normal affect DS: Data Vitals/I&O Vitals and I&O: Vital Signs Temperature 97.5 F L 04/16/24 08:10 Temperature Source Temporal Artery Scan 04/16/24 08:10 Pulse 96 H 04/16/24 08:10 Pulse Rhythm Irregular 04/14/24 09:00 Pulse 110 H 04/14/24 08:35 Respiratory Rate 15 04/16/24 08:10 Respiratory Effort Normal 04/14/24 09:00 Respiratory Depth Normal 04/14/24 09:00 Respiratory Pattern Normal 04/14/24 09:00 Blood Pressure 118/79 04/16/24 08:10 Blood Pressure Mean 85 04/14/24 08:35 Blood Pressure Position Supine 04/14/24 01:50 Pulse Oximetry 96 04/16/24 08:10 Oxygen Delivery Method Room Air 04/16/24 08:10 Oxygen Flow Rate 0 04/16/24 08:10 Pain Level 0 04/16/24 08:10 Comment Nurse notified 04/14/24 22:48 Intake & Output 04/15/24 04/16/24 04/16/24 17:59 05:59 17:59 Intake Total 240 / 240 260 / 260 Output Total 1400 / 1400 2250 / 3650 1700 / 1700 Balance -1400 / -1400 -2009 / 3410 -1440 / -1440 Intake: IV 20 / 20 20 / 20 Oral 220 / 220 240 / 240 Output: Urine 1400 / 1400 2250 / 3650 1700 / 1700 Other: Urine Color Yellow Yellow Yellow Urine Appearance Clear Sediment Clear Comment Patients urine was pale yellow in color Stool Size Small Stool Characteristics Hard Brown Data Completed and Pending Labs on day of discharge: Preliminary micro results at discharge 04/14/24 04:00 Urine Culture - Preliminary Urine - Reflex from Ua Staphylococcus Aureus Pseudomonas aeruginosa PFSH All Active Problems (Updated 04/14/24 @ 13:46 by Audie Knight MD) (HFpEF) heart failure with preserved ejection fraction (Acute) Chest pain (Acute) Acute UTI (Acute) Atrial fibrillation with rapid ventricular response (Acute) Hypomagnesemia (Acute) Acute UTI (Acute) Neuropathy due to type 2 diabetes mellitus (Acute) Onychomycosis (Acute) Fall (Acute) Syncope (Chronic) Atrial fibrillation with rapid ventricular response (Acute) Diabetic hyperosmolar non-ketotic state (Acute) AMS (altered mental status) (Acute) Acute UTI (Acute) Acute hyperglycemia (Acute) Full code status (Acute) Advance care planning (Acute) Brain TIA (Acute) Vitamin B12 deficiency (Acute) CVA (cerebral vascular accident) (Chronic) Impaired instrumental activities of daily living (Acute) DNR (do not resuscitate) (Acute) Loneliness (Acute) Chronic kidney disease (CKD) (Chronic) Venous stasis dermatitis (Acute) Decreased activities of daily living (ADL) (Acute) Need for home health care (Acute) Nephrolithiasis (Chronic) Sacral decubitus ulcer, stage II (Acute) Wound of right lower extremity (Acute) Hyperglycemia (Acute) Trochanteric bursitis, right hip (Acute) Right ankle sprain (Acute) Hip pain, right (Acute) GI bleed (Acute) Fracture, lumbar vertebra, compression (Acute) PSVT (paroxysmal supraventricular tachycardia) (Acute) Poorly controlled diabetes mellitus (Chronic) Transient neurologic deficit (Acute) Fungal dermatitis (Acute) Atrial flutter (Acute) Vaginal bleeding, abnormal (Acute) Atrial fibrillation and flutter (Chronic) Diabetes mellitus type 2 in obese (Chronic) Fracture of femoral neck, right (Acute) Retention, urine (Acute) Medical History (Updated 04/14/24 @ 13:46 by Audie Knight MD) Beth infection Urinary retention (03/31/16) Infestation by bed bug Hx of malignant melanoma GERD (gastroesophageal reflux disease) H/O menorrhagia Supraventricular tachycardia History of traumatic fracture of hip Unsteady gait Hard of hearing Vision changes Anemia 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 Palliative care encounter Pulmonary hypertension Multiple rib fractures involving four or more ribs Hypertension S/P right hip fracture TIA (transient ischemic attack) Hyperlipidemia Atrial fibrillation CHF (congestive heart failure) LVEF 50-55%, diastolic dysfunction Diabetes Cataracts, bilateral Surgical History History of bilateral cataract extraction History of suprapubic catheter Status post right hip replacement Family History Other Diabetes Heart disease Hyperlipidemia Hypertension Stroke Social History Smoking/Tobacco Use Status: Former Tobacco Use Smoking risk assessment performed?: Yes Alcohol Intake: never Drug use: Never Substance use type: does not use Household members: none Housing: apartment Do you feel safe at home: Yes Do you feel safe in your relationship?: Yes Additional Social history: Lives alone[address] Does not drive. Time Spent with Patient Time Spent with Patient: <45 minutes Time was spent: preparing to see the patient(eg.review tests), obtaining and/or reviewing separately otained hiistory, ordering medications,tests, procedures, referring, communicating with other health childcare administrator, indepentently interpreting results, counseling the patient and care coordination
--- NOTE | 2024-04-16 12:16 | CMDISCH_ITS ---
Date of service: 04/16/24 Time of Service: 12:16 LACE Index Scoring Tool Questions: Length of Stay (in days): 2 Was the patient admitted via the E.D.?: Yes Comorbidities: Cerebrovascular Disease and Diabetes w/o Complication E.D. Visits: 4 Answers: Total Score: 11 Risk of Readmission: High Risk Care Management Discharge Plan Reason for Hospitalization: UTI, AFIB Discharge Plan: Discharge home with resumption of H RN/PT/OT/HEADING AND PRIMING TOOL SETTER services. Follow up with community providers and discharge plan of care as agreed on. RCT to transport. Patient is sent home with a short supply of meds to get her through until Thursday. RX's are sent to [facility]. Patient/Family Education Needs: Review discharge instructions and plan to follow up with community providers. Discuss ask me three and goals of self care. Services Needed at Discharge: Home Health Care Services (Resume full [facility] services.) and Transportation SDOH Health Related Social Needs: Health related social needs inadequate housing(Z59.1) Health related social needs: inadequate housing(Z59.1) Referrals and interventions: Pt already receives services
[2024-04-16 15:07] VITALS: BP 102/70; PULSE 89; RESP 15; TEMP 36.5; O2SAT 96
== END 2024-04-16 15:44 | disposition home or self-care (01) | DRG 309 ==
LOC: ER 08:19 → MS 08:47
PROVIDERS: Admitting Provider Family Medicine; Emergency Provider Student in an Organized Health Care Education/Training Program; PCP Physician Assistant; Visit Provider Family Medicine
DX: I13.0 Hypertensive heart and chronic kidney disease with heart failure and stage 1 through stage 4 chronic kidney disease, or unspecified chronic kidney disease; I50.30 Unspecified diastolic (congestive) heart failure; N39.0 Urinary tract infection, site not specified; E11.40 Type 2 diabetes mellitus with diabetic neuropathy, unspecified; N18.9 Chronic kidney disease, unspecified; I48.0 Paroxysmal atrial fibrillation; E11.628 Type 2 diabetes mellitus with other skin complications; E11.22 Type 2 diabetes mellitus with diabetic chronic kidney disease; Z79.01 Long term (current) use of anticoagulants; E83.42 Hypomagnesemia; B35.1 Tinea unguium; Z86.73 Personal history of transient ischemic attack (TIA), and cerebral infarction without residual deficits; E53.8 Deficiency of other specified B group vitamins; Z66 Do not resuscitate; I47.10 Supraventricular tachycardia, unspecified; E78.5 Hyperlipidemia, unspecified; Z96.643 Presence of artificial hip joint, bilateral; Z79.4 Long term (current) use of insulin; S90.425A Blister (nonthermal), left lesser toe(s), initial encounter; X58.XXXA Exposure to other specified factors, initial encounter; B95.61 Methicillin susceptible Staphylococcus aureus infection as the cause of diseases classified elsewhere; B96.5 Pseudomonas (aeruginosa) (mallei) (pseudomallei) as the cause of diseases classified elsewhere
CPT/HCPCS: 00123; 36415; 36416; 71275; 80048; 80053; 82805; 82962; 84145; 85027; 87077; 93005; 96365; 96366; 96367; 96375; 99285; 71045; 81003; 81015; 83605; 83735; 83880; 84484; 85025; 85610; 85730; 87086; 87186; 93010; 99223; 99233; 99239; J0696; J1815; J3475; J3490

== ENCOUNTER 2024-04-26 13:37 | Emergency (ER) | payer MEDICARE, MEDICAID, SELFPAY ==
[2024-04-26 13:40] VITALS: BP 127/59; PULSE 99; RESP 18; TEMP 36.6; O2SAT 95
[2024-04-26] MEDS: Acetaminophen 500 MG TAB 1000 MG PO (13:58)
--- NOTE | 2024-04-26 14:42 | W.ED.GENAD ---
Discharge Plan Disposition Patient Disposition: Home Condition: Good Discharge Details Clinical Impression: Headache Primary Care Provider: Dean Camilo ED Provider: Cullen Ponce Home Meds and New Rx's Prescriptions: No Action Jardiance 10 mg tablet 10 mg PO DAILY insulin lispro [Humalog KwikPen Insulin] 100 unit/mL insulin pen 12 unit SUBCUT QMEALS Patient Comments: INJECT 12 UNITS SUBCUTANEOUSLY DIRECTED WITH MEALS (DME) Depend [employer] For Women Lrg Misc See Rx Instructions .Route Qty: 100 11RF Rx Instructions: Depends pull up large magnesium oxide [MagOx] 400 MG tablet 400 mg PO DAILY Qty: 30 0RF omeprazole 20 MG capsule,delayed release(DR/EC) 20 mg PO DAILY Qty: 30 0RF metformin 500 mg tablet 500 mg PO BID atorvastatin 80 mg tablet 80 mg PO DAILY ciclopirox 0.77 % cream 1 applic TOPICAL PRN Patient Comments: APPLY TO AFFECTED AND SURROUNDING AREAS OF SKIN TOPICALLY TWO TIMES A DAY IN THE MORNING AND EVENING insulin glargine [Lantus Solostar U-100 Insulin] 100 unit/mL (3 mL) Insulin Pen 50 unit subcut HS Patient Comments: takes 50 units per patient cyanocobalamin (vitamin B-12) 1,000 mcg tablet 1,000 mcg PO DAILY Patient Comments: TAKE ONE TABLET BY MOUTH EVERY DAY cefpodoxime 200 mg Tablet 200 mg PO BID Qty: 12 0RF metoprolol succinate 50 mg Tablet Extended Release 24 Hr 150 mg PO DAILY Qty: 90 0RF sulfamethoxazole-trimethoprim 800-160 mg Tablet 1 tab PO BID Qty: 12 0RF lisinopril 10 mg Tablet 10 mg PO DAILY Qty: 90 0RF diltiazem HCl 120 mg Capsule,Extended Release 24hr 120 mg PO DAILY Qty: 90 0RF Xarelto 15 mg Tablet 15 mg PO DAILY@1700 Qty: 90 0RF aspirin [Children's Aspirin] 81 mg Tablet,Chewable 81 mg PO DAILY Qty: 0 0RF nystatin 100,000 unit/gram powder 1 applic topical BID Qty: 60 0RF Discharge Instructions Instructions: Headache, Adult ED Additional Instructions: At this time your heart rate is stabilized. You are on the appropriate medication for your infection. Your headache has resolved after the Tylenol. If you notice any worsening of your symptoms, or any new symptoms such as vomiting, diarrhea, fever, chills, shortness of breath, chest pain, numbness, weakness, or fainting , please return immediately to the emergency department for reevaluation. Please follow up with your primary care provider as soon as possible for reassessment and reevaluation. As always, it was a pleasure participating in your medical care today. Referrals: Dean Camilo [Primary Care Provider] - [facility] General Date/Time Provider Initiated Documentation: 04/26/24 13:51. HPI Narrative: This is a 73-year-old female with a past medical history of type 2 diabetes, GERD, previous TIA and stroke, atrial fibrillation on Eliquis, congestive heart failure, high cholesterol, who was recently admitted with UTI, currently with chronic Barber, and currently on both Bactrim and cefpodoxime. She presents today via EMS for headache. Story is notably unclear. Patient has very little complaints whatsoever aside for a mild headache. Per EMS they state that home health was at the home, and noticed that her heart rate was between the values of the 80s to high 90s. 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 EMS was called. EMS reports that home health stated that if EMS did not bring her in now they would not be able to do it later. Patient consented to go to the ER for assessment. EMS demonstrated normal vital signs, and no other complaints. No evidence of SVT or A-fib with RVR. Patient did complain of a mild headache which started about 5 minutes prior to EMS arrival. The patient denies any headache red flags of worst headache of life, thunderclap headache, neck pain, fever, chills, concerning family history of polycystic kidney disease, Marfan syndrome, Sakina-Danlos syndrome, abdominal aortic aneurysm, aortic dissection, or intracranial aneurysm. No other complaints at this time. Related Data Home Medications ?Medication ?Instructions ?Recorded ?Confirmed magnesium oxide 400 mg (241.3 mg 400 mg PO DAILY #30 tabs 08/02/21 04/14/24 magnesium) tablet (MagOx) omeprazole 20 mg capsule,delayed 20 mg PO DAILY #30 caps 08/02/21 04/14/24 release empagliflozin 10 mg tablet 10 mg PO DAILY 10/16/21 04/14/24 (Jardiance) insulin lispro 100 unit/mL 12 unit subcut QMEALS 12/17/21 04/14/24 subcutaneous pen (Humalog KwikPen (U-100) Insulin) diaper,brief,adult,disposable #100 ea 09/30/22 04/14/24 (Depend Underwear For Women Large) aspirin 81 mg chewable tablet 81 mg PO DAILY #0 tabs 12/31/22 04/14/24 (Children's Aspirin) nystatin 100,000 unit/gram topical 1 applic topical BID #60 grams 05/12/23 04/14/24 powder atorvastatin 80 mg tablet 80 mg PO DAILY 02/25/24 04/14/24 ciclopirox 0.77 % topical cream 1 applic topical PRN 02/25/24 04/14/24 metformin 500 mg tablet 500 mg PO BID 02/25/24 04/14/24 insulin glargine 100 unit/mL (3 50 unit subcut HS 04/14/24 04/14/24 mL) subcutaneous pen (Lantus Solostar U-100 Insulin) cyanocobalamin (vitamin B-12) 1,000 mcg PO DAILY 04/15/24 04/15/24 1,000 mcg tablet cefpodoxime 200 mg tablet 200 mg PO BID #12 tabs 04/16/24 diltiazem HCl 120 mg 120 mg PO DAILY #90 caps 04/16/24 capsule,extended release 24 hr lisinopril 10 mg tablet 10 mg PO DAILY #90 tabs 04/16/24 metoprolol succinate 50 mg 150 mg (3 x 50 mg) PO DAILY #90 04/16/24 tablet,extended release 24 hr tabs rivaroxaban 15 mg tablet (Xarelto) 15 mg PO DAILY@1700 #90 tabs 04/16/24 sulfamethoxazole 800 1 tab PO BID #12 tabs 04/16/24 mg-trimethoprim 160 mg tablet Previous Rx's ?Medication ?Instructions ?Recorded magnesium oxide 400 mg (241.3 mg 400 mg PO DAILY #30 tabs 08/02/21 magnesium) tablet (MagOx) omeprazole 20 mg capsule,delayed 20 mg PO DAILY #30 caps 08/02/21 release diaper,brief,adult,disposable #100 ea 09/30/22 ([employer]wear For Women Large) aspirin 81 mg chewable tablet 81 mg PO DAILY #0 tabs 12/31/22 (Children's Aspirin) nystatin 100,000 unit/gram topical 1 applic topical BID #60 grams 05/12/23 powder cefpodoxime 200 mg tablet 200 mg PO BID #12 tabs 04/16/24 diltiazem HCl 120 mg 120 mg PO DAILY #90 caps 04/16/24 capsule,extended release 24 hr lisinopril 10 mg tablet 10 mg PO DAILY #90 tabs 04/16/24 metoprolol succinate 50 mg 150 mg (3 x 50 mg) PO DAILY #90 04/16/24 tablet,extended release 24 hr tabs rivaroxaban 15 mg tablet (Xarelto) 15 mg PO DAILY@1700 #90 tabs 04/16/24 sulfamethoxazole 800 1 tab PO BID #12 tabs 04/16/24 mg-trimethoprim 160 mg tablet Allergies Allergy/AdvReac Type Severity Reaction Status Date / Time trazodone AdvReac Intermediate NIGHTMARES Verified 04/26/24 13:44 General Stated Complaint: Abd Prob ARGENIS: 3 Review of Systems All systems reviewed & are unremarkable except as noted in HPI and below Exam Narrative Exam Narrative: 1.Const: Well-nourished, Well-developed, appearing stated age 2.Eyes: PERRL, no conjunctival injection, and symmetrical lids. 3.ENT: Atraumatic external nose and ears. Moist MM. Neck: Symmetric, trachea midline, No thyromegaly. No neck stiffness. 4.CVS: +S1/S2, Peripheral pulses 2+ and equal in all extremities. Brisk capillary refill in all extremities. 5.RESP: Unlabored respiratory effort. Clear to auscultation bilaterally. No wheezes rales or rhonchi 6.GI: Soft, Nontender/Nondistended, No hepatosplenomegaly. No guarding or rebound. Barber catheter in place 7.MSK: Normocephalic/Atraumatic, Extremities w/o deformity or ttp No cyanosis or clubbing, Normal movement of all extremities 8.Skin: Warm, Dry. No rashes or lesions. 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 Sensation grossly intact, no focal neurologic deficits. 10.Psych: (AAO) x3. Appropriate mood and affect Course Vital Signs Vital signs: Vital Signs Temperature 36.6 C 04/26/24 13:40 Pulse 99 H 04/26/24 13:40 Respiratory Rate 18 04/26/24 13:40 Blood Pressure 127/59 L 04/26/24 13:40 Pulse Oximetry 95 04/26/24 13:40 Temperature 36.6 C 04/26/24 13:40 Pulse 99 H 04/26/24 13:40 Respiratory Rate 18 04/26/24 13:40 Respiratory Effort Normal 04/26/24 13:53 Blood Pressure 127/59 L 04/26/24 13:40 Pulse Oximetry 95 04/26/24 13:40 Oxygen Delivery Method Room Air 04/26/24 13:40 Oxygen Flow Rate 0 04/26/24 13:40 Medical Decision Making This is a 73-year-old female with a past medical history of type 2 diabetes, GERD, previous TIA and stroke, atrial fibrillation on Eliquis, congestive heart failure, high cholesterol, who was recently admitted with UTI, currently with chronic Barber, and currently on both Bactrim and cefpodoxime. She presents today via EMS for headache. Story is notably unclear. Patient has very little complaints whatsoever aside for a mild headache. Per EMS they state that home health was at the home, and noticed that her heart rate was between the values of the 80s to high 90s. 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 EMS was called. EMS reports that home health stated that if EMS did not bring her in now they would not be able to do it later. Patient consented to go to the ER for assessment. EMS demonstrated normal vital signs, and no other complaints. No evidence of SVT or A-fib with RVR. Patient did complain of a mild headache which started about 5 minutes prior to EMS arrival. The patient denies any headache red flags of worst headache of life, thunderclap headache, neck pain, fever, chills, concerning family history of polycystic kidney disease, Marfan syndrome, Sakina-Danlos syndrome, abdominal aortic aneurysm, aortic dissection, or intracranial aneurysm. No other complaints at this time. Exam demonstrates well-appearing female, no evidence of SVT, A-fib with RVR, hypotension or shock. No nuchal rigidity or neck stiffness. Headache is notably mild. No falls to suggest an intracranial bleed or subdural hematoma. No evidence of trauma. Patient was given 1 g of Tylenol for control of the headache. After about 30 minutes she states that the headache resolved. She is feeling much better. No other complaints at this time. Patient demonstrates no other evidence of acute life-threatening etiologies at this time on current clinical exam and assessment. Patient stable for discharge home. Discussed red flags for which to return. I have extensively reviewed the treatment plan and discharge instructions with the patient. I have addressed all patient concerns at this time. The patient was made aware of what symptoms to monitor for that would warrant a return to the emergency department. Discussed the plan with the patient, they demonstrate verbal understanding and agreement with our assessment and plan at this time. The documentation in this chart was dictated using [employer] dictation software. Please excuse any dictation errors. Quality:SDOH Health Related Social Needs: Health related social needs inadequate housing(Z59.1) PFSH All Active Problems Headache (Acute) (HFpEF) heart failure with preserved ejection fraction (Acute) Chest pain (Acute) Hypomagnesemia (Acute) Acute UTI (Acute) Neuropathy due to type 2 diabetes mellitus (Acute) Onychomycosis (Acute) Fall (Acute) Syncope (Chronic) Atrial fibrillation with rapid ventricular response (Acute) Diabetic hyperosmolar non-ketotic state (Acute) AMS (altered mental status) (Acute) Acute UTI (Acute) Acute hyperglycemia (Acute) Full code status (Acute) Advance care planning (Acute) Brain TIA (Acute) Vitamin B12 deficiency (Acute) CVA (cerebral vascular accident) (Chronic) Impaired instrumental activities of daily living (Acute) DNR (do not resuscitate) (Acute) Loneliness (Acute) Chronic kidney disease (CKD) (Chronic) Venous stasis dermatitis (Acute) Decreased activities of daily living (ADL) (Acute) Need for home health care (Acute) Nephrolithiasis (Chronic) Sacral decubitus ulcer, stage II (Acute) Wound of right lower extremity (Acute) Hyperglycemia (Acute) Trochanteric bursitis, right hip (Acute) Right ankle sprain (Acute) Hip pain, right (Acute) GI bleed (Acute) Fracture, lumbar vertebra, compression (Acute) PSVT (paroxysmal supraventricular tachycardia) (Acute) Poorly controlled diabetes mellitus (Chronic) Transient neurologic deficit (Acute) Fungal dermatitis (Acute) Atrial flutter (Acute) Vaginal bleeding, abnormal (Acute) Atrial fibrillation and flutter (Chronic) Diabetes mellitus type 2 in obese (Chronic) Fracture of femoral neck, right (Acute) Retention, urine (Acute) Medical History Beth infection Urinary retention (03/31/16) Infestation by bed bug Hx of malignant melanoma GERD (gastroesophageal reflux disease) H/O menorrhagia Supraventricular tachycardia History of traumatic fracture of hip Unsteady gait Hard of hearing Vision changes Anemia 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 Palliative care encounter Pulmonary hypertension Multiple rib fractures involving four or more ribs Hypertension S/P right hip fracture TIA (transient ischemic attack) Hyperlipidemia Atrial fibrillation CHF (congestive heart failure) LVEF 50-55%, diastolic dysfunction Diabetes Cataracts, bilateral Surgical History History of bilateral cataract extraction History of suprapubic catheter Status post right hip replacement Family History Other Diabetes Heart disease Hyperlipidemia Hypertension Stroke Social History Smoking/Tobacco Use Status: Former Tobacco Use Smoking risk assessment performed?: Yes Alcohol Intake: never Drug use: Never Substance use type: does not use Household members: none Housing: apartment Do you feel safe at home: Yes Do you feel safe in your relationship?: Yes Additional Social history: Lives alone[address] Does not drive.
[2024-04-26 14:53] VITALS: BP 100/55; PULSE 85; RESP 16; O2SAT 97
== END 2024-04-26 14:53 | disposition home or self-care (01) ==
LOC: ER 15:25
PROVIDERS: Emergency Provider Student in an Organized Health Care Education/Training Program; PCP Physician Assistant
DX: I48.91 Unspecified atrial fibrillation (principal); I11.0 Hypertensive heart disease with heart failure; I50.32 Chronic diastolic (congestive) heart failure; E11.9 Type 2 diabetes mellitus without complications; E78.00 Pure hypercholesterolemia, unspecified; Z79.82 Long term (current) use of aspirin; Z79.84 Long term (current) use of oral hypoglycemic drugs; Z79.4 Long term (current) use of insulin; Z79.01 Long term (current) use of anticoagulants; Z87.891 Personal history of nicotine dependence; R51.9 Headache, unspecified; Z96.0 Presence of urogenital implants; Z86.73 Personal history of transient ischemic attack (TIA), and cerebral infarction without residual deficits
CPT/HCPCS: 99283

== ENCOUNTER 2024-05-26 22:03 | Observation (INO) | payer MEDICARE, MEDICAID, SELFPAY ==
[2024-05-26] VITALS (17 sets, daily range): BP systolic 109–143; BP diastolic 54–75; PULSE 79–100; RESP 13–25; O2SAT 90–97
--- NOTE | 2024-05-26 22:00 | DI.RAD_ITS ---
Exam(s) XR PORTABLE CHEST AP EXAM: XR PORTABLE CHEST AP CLINICAL HISTORY: LOWER CHEST PAIN TECHNIQUE: 2D digital imaging was performed. COMPARISON: CR,XR XR PORTABLE CHEST AP from 04/14/[address] CHEST PE CTA from 04/14/2024 FINDINGS: LUNGS: Clear. No evidence of infiltrate or overt Marily pulmonary edema. No pleural abnormality seen. HEART: Mildly enlarged. Mild pulmonary vascular prominence which appears unchanged.. AORTA: Normal diameter. BONES: Multiple old left rib fractures. Degenerative changes in the spine and shoulders. Soft tissues: Unremarkable. IMPRESSION: No acute findings. DATA REPOSITORY: RADIATION DOSE DELIVERED:
--- NOTE | 2024-05-26 22:00 | RT.EKG_ITS ---
APPROVED REPORT Exam: Resting ECG Reason for Exam: chest pain Patient Location: E HR:93 bpm ECG Measurements Heart Rate 93 [place] [id number] P [id number] QRSd 84 QRS 3 QT 365 T 23 QTc 454 Conclusion Atrial fibrillation...V-rate 60-112, irreg A-activity Low voltage, extremity leads...all extremity leads <0.5mV Physician: no stemi
--- NOTE | 2024-05-26 22:20 | ED.GENADUL_ITS ---
Discharge Plan Disposition Patient Disposition: Admit to [facility] Condition: Good Discharge Details Chief Complaint: Chest Pain Clinical Impression: Diarrhea, Acute hyperglycemia, Acute dehydration Primary Care Provider: Dean Camilo ED Provider: Cullen Ponce Home Meds and New Rx's Prescriptions: No Action Jardiance 10 mg tablet 10 mg PO DAILY insulin lispro [Humalog KwikPen Insulin] 100 unit/mL insulin pen 12 unit SUBCUT QMEALS Patient Comments: INJECT 12 UNITS SUBCUTANEOUSLY DIRECTED WITH MEALS (DME) Depend [employer]wear For Women Lrg Misc See Rx Instructions .Route Qty: 100 11RF Rx Instructions: Depends pull up large magnesium oxide [MagOx] 400 MG tablet 400 mg PO DAILY Qty: 30 0RF omeprazole 20 MG capsule,delayed release(DR/EC) 20 mg PO DAILY Qty: 30 0RF metformin 500 mg tablet 500 mg PO BID atorvastatin 80 mg tablet 80 mg PO DAILY ciclopirox 0.77 % cream 1 applic TOPICAL PRN Patient Comments: APPLY TO AFFECTED AND SURROUNDING AREAS OF SKIN TOPICALLY TWO TIMES A DAY IN THE MORNING AND EVENING insulin glargine [Lantus Solostar U-100 Insulin] 100 unit/mL (3 mL) Insulin Pen 50 unit subcut HS Patient Comments: takes 50 units per patient cyanocobalamin (vitamin B-12) 1,000 mcg tablet 1,000 mcg PO DAILY Patient Comments: TAKE ONE TABLET BY MOUTH EVERY DAY cefpodoxime 200 mg Tablet 200 mg PO BID Qty: 12 0RF metoprolol succinate 50 mg Tablet Extended Release 24 Hr 150 mg PO DAILY Qty: 90 0RF sulfamethoxazole-trimethoprim 800-160 mg Tablet 1 tab PO BID Qty: 12 0RF lisinopril 10 mg Tablet 10 mg PO DAILY Qty: 90 0RF diltiazem HCl 120 mg Capsule,Extended Release 24hr 120 mg PO DAILY Qty: 90 0RF Xarelto 15 mg Tablet 15 mg PO DAILY@1700 Qty: 90 0RF aspirin [Children's Aspirin] 81 mg Tablet,Chewable 81 mg PO DAILY Qty: 0 0RF nystatin 100,000 unit/gram powder 1 applic topical BID Qty: 60 0RF HPI General Date/Time Provider Initiated Documentation: 05/26/24 22:05 . HPI Narrative: This is a 74-year-old female with a past medical history significant for type 2 diabetes, GERD, previous TIA and stroke, atrial fibrillation on Eliquis, congestive heart failure, high cholesterol, indwelling chronic Barber catheter who had recently been on a prolonged antibiotic course, who presents today via EMS for evaluation of chest pain. Patient states that she was at home a few hours ago, when she developed an episode of what she describes as cramping in her abdomen and mild chest discomfort. She felt lightheaded during that time. Shortly thereafter she had a large bowel movement. There may have been a component of a syncopal event during this phase, but he does not very clear per patient. Since then the patient had 2 subsequent episodes of diarrhea. She states that she feels totally fine now, and has no more discomfort or pain whatsoever. She stated that all of her symptoms resolved after the large bowel movement. She denies any trauma to her head. She denies any numbness or tingling. She denies weakness. No other complaints at this time. She denies any blood in her stool. Related Data Home Medications ?Medication ?Instructions ?Recorded ?Confirmed magnesium oxide 400 mg (241.3 mg 400 mg PO DAILY #30 tabs 08/02/21 05/26/24 magnesium) tablet (MagOx) omeprazole 20 mg capsule,delayed 20 mg PO DAILY #30 caps 08/02/21 05/26/24 release empagliflozin 10 mg tablet 10 mg PO DAILY 10/16/21 05/26/24 (Jardiance) insulin lispro 100 unit/mL 12 unit subcut QMEALS 12/17/21 05/26/24 subcutaneous pen (Humalog KwikPen (U-100) Insulin) diaper,brief,adult,disposable #100 ea 09/30/22 05/26/24 (Depend [employer] Large) aspirin 81 mg chewable tablet 81 mg PO DAILY #0 tabs 12/31/22 05/26/24 (Children's Aspirin) nystatin 100,000 unit/gram topical 1 applic topical BID #60 grams 05/12/23 05/26/24 powder atorvastatin 80 mg tablet 80 mg PO DAILY 02/25/24 05/26/24 ciclopirox 0.77 % topical cream 1 applic topical PRN 02/25/24 05/26/24 metformin 500 mg tablet 500 mg PO BID 02/25/24 05/26/24 insulin glargine 100 unit/mL (3 50 unit subcut HS 04/14/24 05/26/24 mL) subcutaneous pen (Lantus Solostar U-100 Insulin) cyanocobalamin (vitamin B-12) 1,000 mcg PO DAILY 04/15/24 05/26/24 1,000 mcg tablet cefpodoxime 200 mg tablet 200 mg PO BID #12 tabs 04/16/24 05/26/24 diltiazem HCl 120 mg 120 mg PO DAILY #90 caps 04/16/24 05/26/24 capsule,extended release 24 hr lisinopril 10 mg tablet 10 mg PO DAILY #90 tabs 04/16/24 05/26/24 metoprolol succinate 50 mg 150 mg (3 x 50 mg) PO DAILY #90 04/16/24 05/26/24 tablet,extended release 24 hr tabs rivaroxaban 15 mg tablet (Xarelto) 15 mg PO DAILY@1700 #90 tabs 04/16/24 05/26/24 sulfamethoxazole 800 1 tab PO BID #12 tabs 04/16/24 05/26/24 mg-trimethoprim 160 mg tablet Previous Rx's ?Medication ?Instructions ?Recorded magnesium oxide 400 mg (241.3 mg 400 mg PO DAILY #30 tabs 08/02/21 magnesium) tablet (MagOx) omeprazole 20 mg capsule,delayed 20 mg PO DAILY #30 caps 08/02/21 release diaper,brief,adult,disposable #100 ea 09/30/22 ([employer] Large) aspirin 81 mg chewable tablet 81 mg PO DAILY #0 tabs 12/31/22 (Children's Aspirin) nystatin 100,000 unit/gram topical 1 applic topical BID #60 grams 05/12/23 powder cefpodoxime 200 mg tablet 200 mg PO BID #12 tabs 04/16/24 diltiazem HCl 120 mg 120 mg PO DAILY #90 caps 04/16/24 capsule,extended release 24 hr lisinopril 10 mg tablet 10 mg PO DAILY #90 tabs 04/16/24 metoprolol succinate 50 mg 150 mg (3 x 50 mg) PO DAILY #90 04/16/24 tablet,extended release 24 hr tabs rivaroxaban 15 mg tablet (Xarelto) 15 mg PO DAILY@1700 #90 tabs 04/16/24 sulfamethoxazole 800 1 tab PO BID #12 tabs 04/16/24 mg-trimethoprim 160 mg tablet Allergies Allergy/AdvReac Type Severity Reaction Status Date / Time trazodone AdvReac Intermediate NIGHTMARES Verified 04/26/24 13:44 General Stated Complaint: Chest Pain ARGENIS: 3 Review of Systems All systems reviewed & are unremarkable except as noted in HPI and below Exam Narrative Exam Narrative: 1.Const: Well-nourished, Well-developed, appearing stated age 2.Eyes: PERRL, no conjunctival injection, and symmetrical lids. 3.ENT: Atraumatic external nose and ears. Moist MM. Neck: Symmetric, trachea midline, No thyromegaly. 4.CVS: +S1/S2, Peripheral pulses 2+ and equal in all extremities. Brisk capillary refill in all extremities. 5.RESP: Unlabored respiratory effort. Clear to auscultation bilaterally. No wheezes rales or rhonchi 6.GI: Soft, nondistended. There is a small subcutaneous firm mass noted in the anterior adipose of the abdomen. Minimal tenderness. Does not appear to be a hernia. No erythema or redness to suggest cellulitis. Mild left lower quadrant achiness on palpation. No guarding or rebound to suggest an acute surgical abdomen though. 7.MSK: Normocephalic/Atraumatic, Extremities w/o deformity or ttp No cyanosis or clubbing, Normal movement of all extremities 8.Skin: Warm, Dry. No rashes or lesions. 9.Neuro: kitchen steward II-XII grossly intact. Sensation grossly intact, no focal neurologic deficits. 10.Psych: (AAO) x3. Appropriate mood and affect Course Vital Signs Vital signs: Vital Signs Pulse 87 05/26/24 22:03 Respiratory Rate 18 05/26/24 22:03 Blood Pressure 109/57 L 05/26/24 22:03 Pulse Oximetry 93 05/26/24 22:03 Pulse 87 05/26/24 22:03 Respiratory Rate 18 05/26/24 22:11 Respiratory Effort Normal 05/26/24 22:11 Respiratory Depth Normal 05/26/24 22:11 Respiratory Pattern Normal 05/26/24 22:11 Blood Pressure 109/57 L 05/26/24 22:03 Blood Pressure Position Sitting 05/26/24 22:03 Pulse Oximetry 93 05/26/24 22:03 Oxygen Delivery Method Room Air 05/26/24 22:03 Oxygen Flow Rate 0 05/26/24 22:03 Medical Decision Making This is a 74-year-old female with a past medical history significant for type 2 diabetes, GERD, previous TIA and stroke, atrial fibrillation on Eliquis, congestive heart failure, high cholesterol, indwelling chronic Barber catheter who had recently been on a prolonged antibiotic course, who presents today via EMS for evaluation of chest pain. Patient states that she was at home a few hours ago, when she developed an episode of what she describes as cramping in her abdomen and mild chest discomfort. She felt lightheaded during that time. Shortly thereafter she had a large bowel movement. There may have been a component of a syncopal event during this phase, but he does not very clear per patient. Since then the patient had 2 subsequent episodes of diarrhea. She states that she feels totally fine now, and has no more discomfort or pain whatsoever. She stated that all of her symptoms resolved after the large bowel movement. She denies any trauma to her head. She denies any numbness or tingling. She denies weakness. No other complaints at this time. She denies any blood in her stool. Exam demonstrates well-appearing female, vital signs are stable. Small firm structure is noted in the superficial adipose. Minimal tenderness no redness or erythema to suggest abscess or hernia. Mild left lower quadrant tenderness on palpation although the patient denies any tenderness without palpation. Differential includes C. difficile, gastroenteritis causing diarrhea, diverticulitis. No vital sign abnormality to suggest significant cardiogenic syncope. Potential vasovagal event may have occurred however history is notably challenging to elicit a good understanding of what happened. We will evaluate for these concerning etiologies gently rehydrate, monitor closely and reassess. 2:08 AM Initial laboratory workup had returned, slightly low sodium, minimally elevated potassium. No anion gap. Glucose was in the 580s. 15 units of subcu insulin was given. Patient had multiple watery bowel movements here, including on the CAT scan table, in her room, and elsewhere. Patient made excellent urine outpu t, and her blood pressure improved from initially being slightly low. Repeat basic metabolic panel demonstrates persistently high glucose, repeat glucose was 631, but fingerstick done moments after was down to 515. However with her persistent hyperglycemia we will give an additional 15 units of subcu insulin. C. difficile testing was negative, and the patient was given a dose of Lomotil. Despite this she still had watery bowel movements. Stool cultures were sent. Stool is nonbloody. She has no fever. No antibiotic treatment necessary at this time. Will recommend continued supportive therapy. Although the patient's sodium is slightly low and the potassium is minimally high, with a normal anion gap and the hyperglycemia the patient's symptoms appear clinically inconsistent with adrenal insufficiency. Patient lives alone, she does have nursing, Thursday, but is alone for the weekend otherwise. With the patient's age, persistent diarrhea, and hyperglycemia I do feel that she would be a poor candidate for discharge home tonight. I do feel she would benefit from admission, continued fluids, continued Lomotil use, and blood sugar control. I did contact the hospitalist and discussed the case with Dr. Borrero, he agrees with the assessment and plan. I have extensively reviewed the treatment plan with the patient. I have addressed all patient concerns at this time. I have also discussed the plan with the admitting physician and they agree with the current assessment and plan and have agreed to assume responsibility for the patient. All parties demonstrate verbal understanding and agreement with our assessment and plan at this time. The documentation in this chart was dictated using [employer] dictation software. Please excuse any dictation errors. FINDINGS: Tubes, catheters and devices: Suprapubic cystostomy catheter. Limited evaluation of the urinary bladder due to streak artifact. Possible cystitis. There is an approximately 3 cm well-demarcated irregular soft tissue density in the superficial subcutaneous tissue of the midline low anterior abdominal wall, about 3 cm away from the suprapubic cystostomy catheter. This is potentially an area of scarring or induration. Metastatic nodule not excluded. No abscess or inflammatory fat stranding or soft tissue gas. Liver: Normal. No mass. Gallbladder and biliary ducts: Normal. No calcified stones. No ductal dilation. Pancreas: Unremarkable. Spleen: Normal. Adrenal glands: Normal. No mass. Kidneys and ureters: Right renal cysts. No obstructive uropathy. Stomach and bowel: No bowel wall thickening or intestinal obstruction. Appendix: Appendix not visualized. No evidence of appendicitis. Intraperitoneal space: Unremarkable. No pneumoperitoneum. No abscess. Vasculature: Unremarkable. Lymph nodes: Unremarkable. Urinary bladder: See Tubes, catheters and devices finding. Reproductive: Unremarkable as visualized. Bones/joints: Right hip prosthesis. Right hip prosthesis. Chronic L1 vertebral body compression deformity. Age indeterminate compression fracture deformity of the L4 vertebral body with moderate loss of vertebral body height. Gas within the superior L4 vertebral body may i ndicate osteonecrosis or may have been introduced from the degenerative gas in the L3-L4 disc space. Soft tissues: See Tubes, catheters and devices finding. IMPRESSION: 1. Suprapubic cystostomy catheter. Limited evaluation of the urinary bladder due to streak artifact. Possible cystitis. 2. There is an approximately 3 cm well-demarcated irregular soft tissue density in the superficial subcutaneous tissue of the midline low anterior abdominal wall, about 3 cm away from the suprapubic cystostomy catheter. This is potentially an area of scarring or induration. Metastatic nodule not excluded. No abscess or inflammatory fat stranding or soft tissue gas. 3. Age indeterminate compression fracture deformity of the L4 vertebral body with moderate loss of vertebral body height. Gas within the superior L4 vertebral body may indicate osteonecrosis or may have been introduced from the degenerative gas in the L3-L4 disc space. Thank you for allowing us to participate in the care of your patient. Dictated and Authenticated by: Ruben Boles MD 05/27/2024 12:37 AM Eastern Time ([place] & [place]) Quality:SDOH Health Related Social Needs: Health related social needs inadequate housing(Z59.1) PFSH All Active Problems (Updated 05/27/24 @ 02:13 by Cullen Ponce DO) Acute dehydration (Acute) Acute hyperglycemia (Acute) Diarrhea (Acute) (HFpEF) heart failure with preserved ejection fraction (Acute) Hypomagnesemia (Acute) Acute UTI (Acute) Neuropathy due to type 2 diabetes mellitus (Acute) Onychomycosis (Acute) Fall (Acute) Syncope (Chronic) Atrial fibrillation with rapid ventricular response (Acute) Diabetic hyperosmolar non-ketotic state (Acute) AMS (altered mental status) (Acute) Acute UTI (Acute) Acute hyperglycemia (Acute) Full code status (Acute) Advance care planning (Acute) Brain TIA (Acute) Vitamin B12 deficiency (Acute) CVA (cerebral vascular accident) (Chronic) Impaired instrumental activities of daily living (Acute) DNR (do not resuscitate) (Acute) Loneliness (Acute) Chronic kidney disease (CKD) (Chronic) Venous stasis dermatitis (Acute) Decreased activities of daily living (ADL) (Acute) Need for home health care (Acute) Nephrolithiasis (Chronic) Sacral decubitus ulcer, stage II (Acute) Wound of right lower extremity (Acute) Hyperglycemia (Acute) Trochanteric bursitis, right hip (Acute) Right ankle sprain (Acute) Hip pain, right (Acute) GI bleed (Acute) Fracture, lumbar vertebra, compression (Acute) PSVT (paroxysmal supraventricular tachycardia) (Acute) Poorly controlled diabetes mellitus (Chronic) Transient neurologic deficit (Acute) Fungal dermatitis (Acute) Atrial flutter (Acute) Vaginal bleeding, abnormal (Acute) Atrial fibrillation and flutter (Chronic) Diabetes mellitus type 2 in obese (Chronic) Fracture of femoral neck, right (Acute) Retention, urine (Acute) Medical History Beth infection Urinary retention (03/31/16) Infestation by bed bug Hx of malignant melanoma GERD (gastroesophageal reflux disease) H/O menorrhagia Supraventricular tachycardia History of traumatic fracture of hip Unsteady gait Hard of hearing Vision changes Anemia 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 Palliative care encounter Pulmonary hypertension Multiple rib fractures involving four or more ribs Hypertension S/P right hip fracture TIA (transient ischemic attack) Hyperlipidemia Atrial fibrillation CHF (congestive heart failure) LVEF 50-55%, diastolic dysfunction Diabetes Cataracts, bilateral Surgical History History of bilateral cataract extraction History of suprapubic catheter Status post right hip replacement Family History Other Diabetes Heart disease Hyperlipidemia Hypertension Stroke Social History Smoking/Tobacco Use Status: Former Tobacco Use Smoking risk assessment performed?: Yes Alcohol Intake: never Drug use: Never Substance use type: does not use Household members: none Housing: apartment Do you feel safe at home: Yes Do you feel safe in your relationship?: Yes Additional Social history: Lives alone. [address] Does not drive.
--- NOTE | 2024-05-26 22:45 | DI.CT_ITS ---
Exam(s) CT ABDOMEN PELVIS W EXAM: CT ABDOMEN PELVIS W CLINICAL HISTORY: diarrhea, L lower abd pain,firm mass in adipose TECHNIQUE: Imaging Protocol: Axial computed tomography images with coronal and sagittal reformatted images were created and reviewed. CONTRAST MATERIAL: Intravenous: Omnipaque 350 Contrast volume:75 mL Oral: No COMPARISON: CT HEAD WITHOUT CONTRAST from 09/22/2012 CT HEAD WITHOUT CONTRAST from 12/22/2013 CT CHEST FOR PULMONARY EMBOLUS from 11/24/[address] ABDOMEN PELVIS WO from 07/16/[address] ABDOMEN PELVIS WO from 07/08/[address] RENAL COLIC WO from 07/31/[address] ABDOMEN PELVIS WO from 05/12/[address] THORACIC LUMBAR SPINE REC from 02/24/[address] CHEST/ABD/PEL W from 02/24/2024 CR,XR XR CHEST 2V PA LATERAL from 03/21/[address] CHEST PE CTA from 04/14/2024 FINDINGS: The patient has a right total hip arthroplasty causing artifact in the right pelvis. This limits ev aluation in this region. ABDOMEN: Lung Bases: There is a calcified granuloma in the right middle lobe. Liver: Normal density. No measurable mass. Portal, Superior Mesenteric, and Splenic Veins: Unremarkable. Gallbladder and Biliary Tract: No radiodense calculus or dilation. Pancreas: Normal density, no abnormal calcifications or inflammatory process. Spleen: There is a stable round well-circumscribed hypodense lesion in the spleen which may represent a cyst or hemangioma. Adrenals: No masses seen. Kidneys: Normal size, contour and axis. No radiodense stones or obstructive uropathy. Simple cysts ar e again seen in the right kidney. No follow-up is recommended. The distal right ureter cannot be vi sualized secondary to artifact from the patient's right total hip arthroplasty. The proximal visuali zed ureter is unremarkable. Abdominal Aorta: Abdominal portion non-dilated. Atherosclerotic calcification is present. Bowel: There is no evidence of bowel obstruction. There is mild wall thickening of proximal jejunal bowel loops in the left upper quadrant. This may be due to underdistention but enteritis should also be considered. Appendix is unremarkable. There is a question of thickening of wall of the rectum (s judit 2, image 182). This may be due to underdistention. This area is difficult to visualize due to artifact from the patient's right total hip arthroplasty. Peritoneal Cavity: No ascites, collection or mesenteric inflammatory response. No free air. Lymph Nodes: Within normal limits. Bones: Within normal limits for the patient's age. The patient has a right total hip arthroplasty. There is a stable L1 compression fracture deformity. There is now a superior endplate compression fr acture of the L4 vertebral body there is loss of around 20 percent of the height of the vertebral bod y. There is retropulsion but no significant central spinal canal stenosis. There is stable pre-exis ting grade 1 spondylolisthesis of L4 on L5.. Soft Tissues: There is a stable well-circumscribed 3 cm soft tissue density in the subcutaneous tissu es inferior to the umbilicus. This likely represents an area of scarring. No soft tissue gas or inf lammatory changes are seen. Abscess is considered less likely. PELVIS: Bladder: Portions of the bladder are not well visualized due to the artifact from the patient's hardw are. There is a suprapubic catheter in place. Question of wall thickening of the urinary bladder. This can be seen with cystitis. Underdistention as a cause cannot be excluded. Reproductive Organs: Calcified uterine fibroid is present. Lymph Nodes: Within normal limits. Bones: Within normal limits for the patient's age. IMPRESSION: 1. Examination limited by artifact in the pelvis from the patient's right total hip arthroplasty. 2. Mild bowel wall thickening seen in the proximal jejunum which may represent enteritis. 3. Question of thickening of the wall of the rectum. This may be due to underdistention. Inflammato ry changes or mass cannot be excluded. Follow-up with barium enema or colonoscopy is recommended. 4. Stable 3 cm subcutaneous soft tissue nodule in the anterior abdominal wall. This likely reflects an area of scarring. Infection or abscess is considered less likely. 5. New superior endplate compression fracture of L4 with loss of approximately 20 percent of the heig ht of the vertebral body. This was not present on the examination from 02/24/2024. 6. Question of thickening of the wall of the urinary bladder. Cystitis cannot be excluded. RADIATION DOSE DELIVERED: 627.68mGy.cm Total DLP DATA REPOSITORY: All CT scans at this facility are submitted to the National Radiology Data Registry (NRDR) Dose Index Registry (DIR) with the [employer] (A[employer]). RADIATION OPTIMIZATION: All CT scans at this facility use at least one of these dose optimization te chniques: automated exposure control; mA and/or kV adjustment per patient size (includes targeted exa ms where dose is matched to clinical indication); or iterative reconstruction.
[2024-05-26 22:49] LABS: Abs Immature Grans 0.02 10^3/uL (0.0-0.06); Absolute Basophil Count 0.06 10^3/uL (0.0-0.2); Absolute Eosinophil Count 0.13 10^3/uL (0.0-0.7); Absolute Lymphocyte Count 1.63 10^3/uL (1.2-3.4); Absolute Monocyte Count 0.73 10^3/uL (0.1-0.8); Absolute Neutrophil Count 4.09 10^3/uL (1.2-6.7); Basophils % 0.9 %; HCT 34.9 % (36.0-46.0); HGB 9.9 g/dL (11.2-15.7); Immature Grans % 0.3 %; Lymphocytes % 24.5 %; MCH 22.1 pg (27.0-33.0); MCHC 28.4 % (32.0-36.0); MCV 78 fL (80-95); MPV 9.9 fL (8.0-11.0); Neutrophils % 61.3 %; Platelet Count 513 10^3/uL (130-400); RBC 4.48 10^6/uL (3.93-5.22); RDW 18.7 % (11.7-14.6); RDW-SD 52.7 fL; WBC 6.66 10^3/uL (4.4-10.8)
[2024-05-26 23:27] LABS: INR 1.3 (0.9-1.1); PTT Activated 30.3 sec (23.6-32.8); Prothrombin Time 12.9 sec (9.1-11.1)
[2024-05-26 23:31] LABS: ALT 17 U/L (14-59); AST 12 U/L (15-37); Alkaline Phosphatase 91 U/L (46-116); Anion Gap 8.8 mmol/L (3-11); BUN 27 mg/dL (7-18); Bilirubin, Total 0.27 mg/dL (0.2-1.0); CO2 25.2 mmol/L (21.0-32.0); CREATININE 1.4 mg/dL (0.55-1.02); Calcium 8.8 mg/dL (8.5-10.1); Chloride 99 mmol/L (98-107); Estimated GFR 38.99 (mL/min/1.73m2); Lipase 111 U/L (<78); Potassium 5.2 mmol/L (3.5-5.1); Sodium 133 mmol/L (136-145); Total Protein 7.3 g/dL (6.4-8.2); Troponin I 7 ng/L (<or=51)
[2024-05-26 23:36] LABS: C Diff PCR Negative (Negative)
[2024-05-26 23:37] LABS: Glucose 584 mg/dL (74-106)
[2024-05-27] VITALS (21 sets, daily range): BP systolic 114–136; BP diastolic 64–95; PULSE 84–106; RESP 12–25; TEMP 36.2–36.5; O2SAT 90–99
[2024-05-27] MEDS: Normal Saline - Diluent 50 ML VIAL IJ (00:15)
[2024-05-27] MEDS: Omnipaque 350 MG/ML 100 ML BTL IJ (00:16)
[2024-05-27] MEDS: Insulin REGULAR-Human 100 UNITS/ML UNIT 15 UNITS SC ×2 (00:26→02:06)
[2024-05-27] MEDS: Normal Saline 500 ML IV ×2 (00:27→01:58)
[2024-05-27 00:32] LABS: BE (Venous) -2 mmol/L (-2-3); HCO3 (Venous) 24 mmol/L (23-28); O2 Sat (Venous) 57 %; TCO2 (Venous) 23 mmol/L (24-29); pCO2 (Venous) 46 mmHg (41-51); pH (Venous) 7.33 (7.31-7.41); pO2 (Venous) 35 mmHg
--- NOTE | 2024-05-27 00:37 | DI.VRAD_ITS ---
PROCEDURE INFORMATION: Exam: CT Abdomen And Pelvis With Contrast Exam date and time: 05/26/2024 11:35 PM Age: 74 years old Clinical indication: Other: Diarrhea, L lower abd pain, firm mass in adipose TECHNIQUE: Imaging protocol: Computed tomography of the abdomen and pelvis with contrast. Contrast material: OMNI 350; Contrast volume: 75 ml; Contrast route: INTRAVENOUS (IV); COMPARISON: CT CHEST/ABD/PEL W 02/24/2024 6:34 PM FINDINGS: Tubes, catheters and devices: Suprapubic cystostomy catheter. Limited evaluation of the urinary bladder due to streak artifact. Possible cystitis. There is an approximately 3 cm well-demarcated irregular soft tissue density in the superficial subcutaneous tissue of the midline low anterior abdominal wall, about 3 cm away from the suprapubic cystostomy catheter. This is potentially an area of scarring or induration. Metastatic nodule not excluded. No abscess or inflammatory fat stranding or soft tissue gas. Liver: Normal. No mass. Gallbladder and biliary ducts: Normal. No calcified stones. No ductal dilation. Pancreas: Unremarkable. Spleen: Normal. Adrenal glands: Normal. No mass. Kidneys and ureters: Right renal cysts. No obstructive uropathy. Stomach and bowel: No bowel wall thickening or intestinal obstruction. Appendix: Appendix not visualized. No evidence of appendicitis. Intraperitoneal space: Unremarkable. No pneumoperitoneum. No abscess. Vasculature: Unremarkable. Lymph nodes: Unremarkable. Urinary bladder: See Tubes, catheters and devices finding. Reproductive: Unremarkable as visualized. Bones/joints: Right hip prosthesis. Right hip prosthesis. Chronic L1 vertebral body compression deformity. Age indeterminate compression fracture deformity of the L4 vertebral body with moderate loss of vertebral body height. Gas within the superior L4 vertebral body may indicate osteonecrosis or may have been introduced from the degenerative gas in the L3-L4 disc space. Soft tissues: See Tubes, catheters and devices finding. IMPRESSION: 1. Suprapubic cystostomy catheter. Limited evaluation of the urinary bladder due to streak artifact. Possible cystitis. 2. There is an approximately 3 cm well-demarcated irregular soft tissue density in the superficial subcutaneous tissue of the midline low anterior abdominal wall, about 3 cm away from the suprapubic cystostomy catheter. This is potentially an area of scarring or induration. Metastatic nodule not excluded. No abscess or inflammatory fat stranding or soft tissue gas. 3. Age indeterminate compression fracture deformity of the L4 vertebral body with moderate loss of vertebral body height. Gas within the superior L4 vertebral body may indicate osteonecrosis or may have been introduced from the degenerative gas in the L3-L4 disc space. Dictated and Authenticated by: Ruben Boles MD. Ordering:CARLEY Berman MD
--- NOTE | 2024-05-27 00:38 | DI.VRAD_ITS ---
PROCEDURE INFORMATION: Exam: XR Chest Exam date and time: 05/27/2024 12:09 AM Age: 74 years old Clinical indication: Other: Lower chest pain TECHNIQUE: Imaging protocol: Radiologic exam of the chest. Views: 1 view. COMPARISON: CT CHEST PE CTA 04/14/2024 3:47 AM FINDINGS: Lungs: Unremarkable. No consolidation. Pleural spaces: Unremarkable. No pleural effusion. No pneumothorax. Heart/Mediastinum: Unremarkable. No cardiomegaly. Bones/joints: There are multiple healing left-sided rib fractures. IMPRESSION: There are multiple healing left-sided rib fractures. Dictated and Authenticated by: Ruben Boles MD. Ordering:CARLEY Berman MD
[2024-05-27 00:52] LABS: Troponin I 7 ng/L (<or=51)
[2024-05-27 01:06] LABS: BUN 29 mg/dL (7-18); CO2 23.7 mmol/L (21.0-32.0); CREATININE 1.3 mg/dL (0.55-1.02); Calcium 8.9 mg/dL (8.5-10.1); Chloride 97 mmol/L (98-107); Estimated GFR 42.62 (mL/min/1.73m2)
[2024-05-27 01:12] LABS: Anion Gap 9.3 mmol/L (3-11); Potassium 5.2 mmol/L (3.5-5.1); Sodium 130 mmol/L (136-145)
[2024-05-27 01:14] LABS: Glucose 631 mg/dL (74-106)
--- NOTE | 2024-05-27 02:41 | W.PC.ACHO ---
Registration Status: Primary Language: Preferred Language: ED Information & Data Chief Complaint Chest Pain 05/26/24 22:27 Triage Note Was having chest pain that 05/26/24 22:03 was relieved by 3 bowel movements. pt claims syncopal episode, unwitnessed. Pt has a hodge in place. No symptoms at this time. No meds given by EMS. Got up and walked to stretcher. 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 Palliative care encounter Pulmonary hypertension Multiple rib fractures involving four or more ribs Hypertension S/P right hip fracture TIA (transient ischemic attack) Hyperlipidemia Atrial fibrillation CHF (congestive heart failure) Diabetes Cataracts, bilateral (Last Reviewed 05/26/24 @ 22:56 by Cullen Ponce DO) History of bilateral cataract extraction History of suprapubic catheter Status post right hip replacement Most Recent Vital Signs Pulse 86 05/27/24 02:14 Pulse 94 H 05/27/24 01:30 Respiratory Rate 12 05/27/24 01:30 Respiratory Effort Normal 05/26/24 22:11 Respiratory Depth Normal 05/26/24 22:11 Respiratory Pattern Normal 05/26/24 22:11 Blood Pressure 132/65 05/27/24 00:31 Blood Pressure Mean 87 05/27/24 00:31 Blood Pressure Position Sitting 05/26/24 22:03 Pulse Oximetry 92 05/27/24 02:14 Oxygen Delivery Method Room Air 05/26/24 22:03 Oxygen Flow Rate 0 05/26/24 22:03 Allergies trazodone Adverse Reaction (Intermediate, Verified 04/26/24 13:44) NIGHTMARES Precautions Isolation Standard precaution 05/26/24 22:09 Active Medications Generic Name Dose Route Start Last Admin Trade Name Freq PRN Reason Stop Dose Admin Iohexol 100 ml 05/27/24 00:30 05/27/24 00:16 Omnipaque 350 Mg/Ml 100 Ml Btl IJ 06/26/24 23:59 75 ml DIRECTED DANNI Administration Sodium Chloride 50 ml 05/27/24 00:15 05/27/24 00:15 Normal Saline - Diluent 50 Ml Vial IJ 50 ml .FOR DI USE DANNI Administration IV IV Catheter Type [Left Forearm Saline Lock ] IV Catheter Gauge [Left 20 Forearm] Diagnostics 05/27/24 05/27/24 05/26/24 Range/Units 02:30 00:30 23:06 WBC (4.4-10.8) 10^3/uL RBC (3.93-5.22) 10^6/uL Hgb (11.2-15.7) g/dL Hct (36.0-46.0) % MCV (80-95) fL MCH (27.0-33.0) pg MCHC (32.0-36.0) % RDW (11.7-14.6) % Plt Count (130-400) 10^3/uL MPV (8.0-11.0) fL Immature Gran % % Neutrophils % % Lymphocytes % % Monocytes % % Eosinophils % % Basophils % % Nucleated RBC % (0.0-0.3) % Absolute Neutrophils (1.2-6.7) 10^3/uL Absolute Lymphocytes (1.2-3.4) 10^3/uL Absolute Monocytes (0.1-0.8) 10^3/uL Absolute Eosinophils (0.0-0.7) 10^3/uL Absolute Basophils (0.0-0.2) 10^3/uL PT 12.9 H INR 1.3 H APTT 30.3 VBG pH 7.33 (7.31-7.41) VBG pCO2 46 (41-51) mmHg VBG pO2 35 mmHg VBG HCO3 24 (23-28) mmol/L VBG Total CO2 23 L (24-29) mmol/L VBG O2 Saturation 57 % VBG Base Excess -2 (-2-3) mmol/L Sodium 130 L 133 L Potassium 5.2 H 5.2 H Chloride 97 L 99 Carbon Dioxide 23.7 25.2 Anion Gap 9.3 8.8 BUN 29 H 27 H Creatinine 1.3 H 1.4 H Est GFR (CKD-EPI 2020) 42.62 38.99 Glucose 631 H* 584 H* Calcium 8.9 8.8 Total Bilirubin 0.27 AST 12 L ALT 17 Alkaline Phosphatase 91 Troponin I Pending 7 7 Total Protein 7.3 Albumin 3.0 L Lipase 111 H Stool Campylobacter PCR Stl C.difficile Tox PCR (Negative) Stool Salmonella PCR Stool Shigella PCR Stool Ova & Parasites Shiga Toxin (PCR) 05/26/24 Range/Units 22:41 WBC 6.66 (4.4-10.8) 10^3/uL RBC 4.48 (3.93-5.22) 10^6/uL Hgb 9.9 L (11.2-15.7) g/dL Hct 34.9 L (36.0-46.0) % MCV 78 L (80-95) fL MCH 22.1 L (27.0-33.0) pg MCHC 28.4 L (32.0-36.0) % RDW 18.7 H (11.7-14.6) % Plt Count 513 H (130-400) 10^3/uL MPV 9.9 (8.0-11.0) fL Immature Gran % 0.3 % Neutrophils % 61.3 % Lymphocytes % 24.5 % Monocytes % 11.0 % Eosinophils % 2.0 % Basophils % 0.9 % Nucleated RBC % 0.0 (0.0-0.3) % Absolute Neutrophils 4.09 (1.2-6.7) 10^3/uL Absolute Lymphocytes 1.63 (1.2-3.4) 10^3/uL Absolute Monocytes 0.73 (0.1-0.8) 10^3/uL Absolute Eosinophils 0.13 (0.0-0.7) 10^3/uL Absolute Basophils 0.06 (0.0-0.2) 10^3/uL PT Cancelled INR Cancelled APTT Cancelled VBG pH (7.31-7.41) VBG pCO2 (41-51) mmHg VBG pO2 mmHg VBG HCO3 (23-28) mmol/L VBG Total CO2 (24-29) mmol/L VBG O2 Saturation % VBG Base Excess (-2-3) mmol/L Sodium Cancelled Potassium Cancelled Chloride Cancelled Carbon Dioxide Cancelled Anion Gap Cancelled BUN Cancelled Creatinine Cancelled Est GFR (CKD-EPI 2020) Cancelled Glucose Cancelled Calcium Cancelled Total Bilirubin Cancelled AST Cancelled ALT Cancelled Alkaline Phosphatase Cancelled Troponin I Cancelled Total Protein Cancelled Albumin Cancelled Lipase Cancelled Stool Campylobacter PCR Pending Stl C.difficile Tox PCR Negative (Negative) Stool Salmonella PCR Pending Stool Shigella PCR Pending Stool Ova & Parasites Pending Shiga Toxin (PCR) Pending [id number] Documentation Fingerstick Glucose Start: 05/27/24 00:28 Freq: Status: Active Protocol: Activity Type Activity Date Activity User E-sign Co-sign Detail Recorded Client Recorded Date Recorded By Document 05/27/24 01:18 BKG DAEMON(3) [id number] 05/27/24 01:20 BKG DAEMON(4) Intake and Output - 24 Hour Total 05/26/24 21:57 thru 05/27/24 02:15 Intake Total 775 Output Total 1200 Balance -425 Weight 83.915 kg Intake: IV 775 Output: Urine 1200 Other: # Bowel Movements 1 Falls Risk Assessment History of Falls Previous History 05/26/24 22:13 Contributing Factors Unstable,Impairments 05/26/24 22:13 Ambulatory Aids Uses ambulatory device 05/26/24 22:13 Tubes/Lines W/no contributing factors 05/26/24 22:13 Fall Total Score 46 05/26/24 22:13 Level of Risk Moderate Risk 05/26/24 22:13 v v v v v v v v v Sending and/or Receiving Nurses: Please use comment section below to note any information pertinent to the patient hand-off not included above. Information / Comments: Report taken, Pt going to room 209 Report received from: KRIS [place] @ [id number]
[2024-05-27] MEDS: Lactated Ringers 1,000 ML 125 ML IV (03:12)
[2024-05-27 03:33] LABS: Troponin I 7 ng/L (<or=51)
--- NOTE | 2024-05-27 05:09 | W.PM.HP.N ---
Date of service: 05/27/24 Time of Service: 05:09 Assessment and Plan Assessment and plan (1) Acute dehydration: Start date: 05/27/24 Status: Acute Assessment and plan: This is a 74-year-old lady with a history of multiple medical problems previously DNR now full CODE STATUS presenting with chest discomfort which was relieved when she began to have a large, loose brown stool. She is clinically acutely dehydrated with a history of CKD and chronic anemia. She is on anticoagulation with a history of chronic atrial fibrillation without history of bleeding sequela though she does have a falls. She will be admitted for continued IV hydration and better control of her hyperglycemia with follow-up on stool cultures. Imodium will be used as needed for profuse diarrhea and fluid loss. She is not vomiting. She will remain a full code. (2) Diarrhea: Start date: 05/27/24 Status: Acute Assessment and plan: Profuse loose brown stools with Imodium initiated and C. difficile negative. IV fluid rehydration watch for fluid overload with history of right-sided heart failure and increased PA pressures. (3) Diabetes: Assessment and plan: Poorly controlled chronically now with hyperglycemia without DKA. She does have CKD with associated anemia. Current meds both before meals and at bedtime with clear fluid diet with resistant sliding scale insulin coverage. (4) Atrial fibrillation and flutter: Status: Chronic Assessment and plan: Rate controlled on anticoagulation. She was having chest discomfort which resolved with her diarrhea and had negative troponins. (5) Retention, urine: Status: Chronic Assessment and plan: Status post CVA with patient thinking as well as neurogenic. Patient does have frequent UTIs. Urinalysis with urine culture will be sent. (6) Chronic kidney disease (CKD): Status: Chronic Assessment and plan: This appears stable the patient does have some acute dehydration with hypokalemia. Follow basic metabolic profile every 6 hours. (7) CHF (congestive heart failure): Assessment and plan: Right sided with increased PA pressures. Watch for fluid overload with rehydration. History of Present Illness History of Present Illness Chief Complaint: Profuse diarrhea with dehydration Narrative: This is a 74-year-old female patient who presented to the ED with chest discomfort but then began to have large amounts of loose brown stool which relieved her chest discomfort with negative cardiac evaluation in the ED with atrial fibrillation/flutter and controlled rate on EKG and no acute ST-T changes as well as negative troponin. She continued to have frequent large, loose brown stools despite use of Imodium and her C. difficile was negative. She also has some electrolyte abnormalities and appeared mildly dehydrated with hyponatremia slightly worsening with fluid resuscitation but stable hyperkalemia not requiring treatment. She has a history of CHF with probable pulmonary hypertension and preserved left ventricular ejection fraction. She also had hyperglycemia with exacerbation of diabetes on metformin and insulin chronically. She did receive regular insulin in the ED. Because of her continued profuse diarrhea and dehydration with hyperglycemia, she was admitted for observation for correction of these problems and follow-up on stool cultures with no antibiotic therapy initiated. Her last hemoglobin A1c was greater than 13, showing poor control at home. She does live alone and has a chronic indwelling Barber catheter. Urinalysis will be performed with culture. Patient does have frequent UTIs documented. She also has frequent falls with old subacute fractures of the back and ribs. She is on anticoagulation despite her falls patient said that she may have had this changed or adjusted at the 6 months ago though she is a poor historian. She does live alone and is at high risk of decompensation. The patient is a full code status she does want CPR though she was a DNR status recently. Palliative care consultation can be reinitiated if appropriate. Patient has family that does not live locally and she states I have reasons to stay alive. Review of Systems Narrative: 13 point review of systems otherwise unrevealing or stable. Patient does have residual of her CVA with left facial droop and dysarthria. She also has discomfort over her left ankle with swelling over the right more than left though no increased shortness of breath with a history of CHF which is right-sided with increased PA pressures and preserved ejection fractions. She does have chronic skin and intertriginous rashes on nystatin and creams. There is no increase redness over her lower extremities. [facility] All Active Problems (Updated 05/27/24 @ 05:35 by Sunil Borrero) Acute dehydration (Acute) Acute hyperglycemia (Acute) Diarrhea (Acute) (HFpEF) heart failure with preserved ejection fraction (Acute) Hypomagnesemia (Acute) Acute UTI (Acute) Neuropathy due to type 2 diabetes mellitus (Acute) Onychomycosis (Acute) Fall (Acute) Syncope (Chronic) Atrial fibrillation with rapid ventricular response (Acute) Diabetic hyperosmolar non-ketotic state (Acute) AMS (altered mental status) (Acute) Acute UTI (Acute) Acute hyperglycemia (Acute) Full code status (Acute) Advance care planning (Acute) Brain TIA (Acute) Vitamin B12 deficiency (Acute) CVA (cerebral vascular accident) (Chronic) Impaired instrumental activities of daily living (Acute) DNR (do not resuscitate) (Acute) Loneliness (Acute) Chronic kidney disease (CKD) (Chronic) Venous stasis dermatitis (Acute) Decreased activities of daily living (ADL) (Acute) Need for home health care (Acute) Nephrolithiasis (Chronic) Sacral decubitus ulcer, stage II (Acute) Wound of right lower extremity (Acute) Hyperglycemia (Acute) Trochanteric bursitis, right hip (Acute) Right ankle sprain (Acute) Hip pain, right (Acute) GI bleed (Acute) Fracture, lumbar vertebra, compression (Acute) PSVT (paroxysmal supraventricular tachycardia) (Acute) Poorly controlled diabetes mellitus (Chronic) Transient neurologic deficit (Acute) Fungal dermatitis (Acute) Atrial flutter (Acute) Vaginal bleeding, abnormal (Acute) Atrial fibrillation and flutter (Chronic) Diabetes mellitus type 2 in obese (Chronic) Fracture of femoral neck, right (Acute) Retention, urine (Chronic) Medical History Beth infection Urinary retention (03/31/16) Infestation by bed bug Hx of malignant melanoma GERD (gastroesophageal reflux disease) H/O menorrhagia Supraventricular tachycardia History of traumatic fracture of hip Unsteady gait Hard of hearing Vision changes Anemia 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 Palliative care encounter Pulmonary hypertension Multiple rib fractures involving four or more ribs Hypertension S/P right hip fracture TIA (transient ischemic attack) Hyperlipidemia Atrial fibrillation CHF (congestive heart failure) LVEF 50-55%, diastolic dysfunction Diabetes Cataracts, bilateral Surgical History History of bilateral cataract extraction History of suprapubic catheter Status post right hip replacement Family History Other Diabetes Heart disease Hyperlipidemia Hypertension Stroke Social History Smoking/Tobacco Use Status: Former Tobacco Use Smoking risk assessment performed?: Yes Alcohol Intake: never Drug use: Never Substance use type: does not use Household members: none Housing: apartment Do you feel safe at home: Yes Do you feel safe in your relationship?: Yes Additional Social history: Lives alone. [address] Does not drive. Meds Allergies and Home Medications Allergies Allergy/AdvReac Type Severity Reaction Status Date / Time trazodone AdvReac Intermediate NIGHTMARES Verified 04/26/24 13:44 Home Medications ?Medication ?Instructions ?Recorded ?Confirmed ?Type magnesium oxide 400 mg (241.3 mg 400 mg PO DAILY #30 tabs 08/02/21 05/26/24 Rx magnesium) tablet (MagOx) omeprazole 20 mg capsule,delayed 20 mg PO DAILY #30 caps 08/02/21 05/26/24 Rx release empagliflozin 10 mg tablet 10 mg PO DAILY 10/16/21 05/26/24 History (Jardiance) insulin lispro 100 unit/mL 12 unit subcut QMEALS 12/17/21 05/26/24 History subcutaneous pen (Humalog KwikPen (U-100) Insulin) diaper,brief,adult,disposable #100 ea 09/30/22 05/26/24 Rx (Depend Underwear For Women Large) aspirin 81 mg chewable tablet 81 mg PO DAILY #0 tabs 12/31/22 05/26/24 Rx (Children's Aspirin) nystatin 100,000 unit/gram topical 1 applic topical BID #60 grams 05/12/23 05/26/24 Rx powder atorvastatin 80 mg tablet 80 mg PO DAILY 02/25/24 05/26/24 History ciclopirox 0.77 % topical cream 1 applic topical PRN 02/25/24 05/26/24 History metformin 500 mg tablet 500 mg PO BID 02/25/24 05/26/24 History insulin glargine 100 unit/mL (3 50 unit subcut HS 04/14/24 05/26/24 History mL) subcutaneous pen (Lantus Solostar U-100 Insulin) cyanocobalamin (vitamin B-12) 1,000 mcg PO DAILY 04/15/24 05/26/24 History 1,000 mcg tablet cefpodoxime 200 mg tablet 200 mg PO BID #12 tabs 04/16/24 05/26/24 Rx diltiazem HCl 120 mg 120 mg PO DAILY #90 caps 04/16/24 05/26/24 Rx capsule,extended release 24 hr lisinopril 10 mg tablet 10 mg PO DAILY #90 tabs 04/16/24 05/26/24 Rx metoprolol succinate 50 mg 150 mg (3 x 50 mg) PO DAILY #90 04/16/24 05/26/24 Rx tablet,extended release 24 hr tabs rivaroxaban 15 mg tablet (Xarelto) 15 mg PO DAILY@1700 #90 tabs 04/16/24 05/26/24 Rx sulfamethoxazole 800 1 tab PO BID #12 tabs 04/16/24 05/26/24 Rx mg-trimethoprim 160 mg tablet Exam Narrative Exam Narrative: General: Patient appears appropriate for age, moderately obese, alert and oriented at least to person and place. She is a vague historian with dysarthric speech. She is in no acute distress. HEENT: Normocephalic, course and facial features, left facial droop with dysarthria, eyes with pupils equal and reactive to light symmetrically, extraocular movement intact and sclera anicteric. Oropharynx with dry mucosa and missing teeth. Neck: Supple without JVD. Back: Kyphotic without CVA tenderness. Lungs: Bronchovesicular breath sounds diffusely with fair aeration and no focalizing rales or rhonchi. Breast: Exam deferred. Abdomen: Obese contour, soft and nontender to palpation with no palpable hepatosplenomegaly. Bowel sounds positive all quadrants. Intertriginous rash over pannus with obese abdomen with suprapubic catheter in place draining minimal urine. Genitalia/rectal: Exam deferred. Extremities: Nonpitting edema right ankle with atrophic, slightly erythematous and hyperpigmented skin over left ankle with slight discomfort to palpation but no increased warmth to touch. There is a black marker line over the top of this chronic appearing skin change. No clubbing or cyanosis. Fair cap refill. Joints have fair range of motion. Skin: Chronic skin changes lower extremities as mentioned, intertriginous rashes as mentioned, otherwise normal color, warm and dry. Neuro: Dysarthric speech with facial droop with a left, patient moves all extremities well the left side may be slightly weaker. Cranial nerves II through XII grossly intact. No other focalizing motor deficits other than the lower face and possibly left extremities which is not dramatic. Psych: Flattened affect with normal mood. Patient has little insight. No abnormal thought processes. Remote memory intact with recent memory more vague when taking history. Results Imaging Imaging Studies: Exam: CT Abdomen And Pelvis With Contrast Exam date and time: 05/26/2024 11:35 PM Age: 74 years old Clinical indication: Other: Diarrhea, L lower abd pain, firm mass in adipose COMPARISON: CT CHEST/ABD/PEL W 02/24/2024 6:34 PM FINDINGS: Tubes, catheters and devices: Suprapubic cystostomy catheter. Limited evaluation of the urinary bladder due to streak artifact. Possible cystitis. There is an approximately 3 cm well-demarcated irregular soft tissue density in the superficial subcutaneous tissue of the midline low anterior abdominal wall, about 3 cm away from the suprapubic cystostomy catheter. This is potentially an area of scarring or induration. Metastatic nodule not excluded. No abscess or inflammatory fat stranding or soft tissue gas. Liver: Normal. No mass. Gallbladder and biliary ducts: Normal. No calcified stones. No ductal dilation. Pancreas: Unremarkable. Spleen: Normal. Adrenal glands: Normal. No mass. Kidneys and ureters: Right renal cysts. No obstructive uropathy. Stomach and bowel: No bowel wall thickening or intestinal obstruction. Appendix: Appendix not visualized. No evidence of appendicitis. Intraperitoneal space: Unremarkable. No pneumoperitoneum. No abscess. Vasculature: Unremarkable. Lymph nodes: Unremarkable. Urinary bladder: See Tubes, catheters and devices finding. Reproductive: Unremarkable as visualized. Bones/joints: Right hip prosthesis. Right hip prosthesis. Chronic L1 vertebral body compression deformity. Age indeterminate compression fracture deformity of the L4 vertebral body with moderate loss of vertebral body height. Gas within the superior L4 vertebral body may indicate osteonecrosis or may have been introduced from the degenerative gas in the L3-L4 disc space. Soft tissues: See Tubes, catheters and devices finding. IMPRESSION: 1. Suprapubic cystostomy catheter. Limited evaluation of the urinary bladder due to streak artifact. Possible cystitis. 2. There is an approximately 3 cm well-demarcated irregular soft tissue density in the superficial subcutaneous tissue of the midline low anterior abdominal wall, about 3 cm away from the suprapubic cystostomy catheter. This is potentially an area of scarring or induration. Metastatic nodule not excluded. No abscess or inflammatory fat stranding or soft tissue gas. 3. Age indeterminate compression fracture deformity of the L4 vertebral body with moderate loss of vertebral body height. Gas within the superior L4 vertebral body may indicate osteonecrosis or may have been introduced from the degenerative gas in the L3-L4 disc space. Exam: XR Chest Exam date and time: 05/27/2024 12:09 AM Age: 74 years old Clinical indication: Other: Lower chest pain TECHNIQUE: Imaging protocol: Radiologic exam of the chest. Views: 1 view. COMPARISON: CT CHEST PE CTA 04/14/2024 3:47 AM FINDINGS: Lungs: Unremarkable. No consolidation. Pleural spaces: Unremarkable. No pleural effusion. No pneumothorax. Heart/Mediastinum: Unremarkable. No cardiomegaly. Bones/joints: There are multiple healing left-sided rib fractures. IMPRESSION: There are multiple healing left-sided rib fractures. Exam Date: 02/24/24 EXAM: Comprehensive 2D, Doppler, and color-flow Echocardiogram Patient Location: ER Room/Bed: 7 Mail Superintendent: Christelle Curran RDCS (AE) Indications: Syncope with PAF/RVR Other Information Study Quality: Adequate. Technically limited study due to body habitus, inability to position patient exam done bedside er. Conclusion Normal left ventricular wall thickness and chamber size. Ejection fraction is 65%. Wall motion is normal Mildly enlarged right ventricle with preserved systolic function Both atria are mildly dilated Aortic valve is trileaflet with mild regurgitation Mild mitral annular calcification. Trace to mild mitral regurgitation Normal tricuspid valve with mild regurgitation. Estimated right ventricular systolic pressure is 59 mmHg Ascending aorta measures 3.6 cm Labs 05/26/24 22:41 05/27/24 00:30 Labs: Laboratory Results - last 24 hr 05/26/24 05/26/24 05/27/24 22:41 23:06 00:30 WBC 6.66 RBC 4.48 Hgb 9.9 L Hct 34.9 L MCV 78 L MCH 22.1 L MCHC 28.4 L RDW 18.7 H Plt Count 513 H MPV 9.9 Immature Gran % 0.3 Neutrophils % 61.3 Lymphocytes % 24.5 Monocytes % 11.0 Eosinophils % 2.0 Basophils % 0.9 Nucleated RBC % 0.0 Absolute Neutrophils 4.09 Absolute Lymphocytes 1.63 Absolute Monocytes 0.73 Absolute Eosinophils 0.13 Absolute Basophils 0.06 PT Cancelled 12.9 H INR Cancelled 1.3 H APTT Cancelled 30.3 VBG pH 7.33 VBG pCO2 46 VBG pO2 35 VBG HCO3 24 VBG Total CO2 23 L VBG O2 Saturation 57 VBG Base Excess -2 Sodium Cancelled 133 L 130 L Potassium Cancelled 5.2 H 5.2 H Chloride Cancelled 99 97 L Carbon Dioxide Cancelled 25.2 23.7 Anion Gap Cancelled 8.8 9.3 BUN Cancelled 27 H 29 H Creatinine Cancelled 1.4 H 1.3 H Est GFR (CKD-EPI 2020) Cancelled 38.99 42.62 Glucose Cancelled 584 H* 631 H* Calcium Cancelled 8.8 8.9 Total Bilirubin Cancelled 0.27 AST Cancelled 12 L ALT Cancelled 17 Alkaline Phosphatase Cancelled 91 Troponin I Cancelled 7 7 Total Protein Cancelled 7.3 Albumin Cancelled 3.0 L Lipase Cancelled 111 H Stl C.difficile Tox PCR Negative 05/27/24 03:10 WBC RBC Hgb Hct MCV MCH MCHC RDW Plt Count MPV Immature Gran % Neutrophils % Lymphocytes % Monocytes % Eosinophils % Basophils % Nucleated RBC % Absolute Neutrophils Absolute Lymphocytes Absolute Monocytes Absolute Eosinophils Absolute Basophils PT INR APTT VBG pH VBG pCO2 VBG pO2 VBG HCO3 VBG Total CO2 VBG O2 Saturation VBG Base Excess Sodium Potassium Chloride Carbon Dioxide Anion Gap BUN Creatinine Est GFR (CKD-EPI 2020) Glucose Calcium Total Bilirubin AST ALT Alkaline Phosphatase Troponin I 7 Total Protein Albumin Lipase Stl C.difficile Tox PCR Last Vital Signs Temp 36.2 C L 05/27/24 03:07 Pulse 93 H 05/27/24 03:07 Resp 18 05/27/24 03:07 BP 132/89 05/27/24 03:07 Pulse Ox 98 05/27/24 03:07 Time Spent Time spent with Patient: >75 minutes Time was spent: preparing to see the patient(eg.review tests), obtaining and/or reviewing separately otained hiistory, ordering medications,tests, procedures, indepentently interpreting results and counseling the patient
[2024-05-27 07:11] LABS: Bilirubin Negative (Negative); Blood Negative (Negative); Clarity Clear (Clear); Glucose >=1000 mg/dL (Negative); Ketones Negative (Negative); Leukocyte Esterase Trace (Negative); Nitrite Negative (Negative); Specific Gravity 1.015 (1.005-1.025); Urobilinogen 0.2 mg/dL (Up to 0.2)
[2024-05-27 07:29] LABS: Bacteria Moderate HPF (Negative); C & S Indicated? Yes; Casts Negative LPF (Negative); Crystals Negative HPF (Negative); Epithelial Cells Rare HPF (Negative); Mucus Negative (Negative)
[2024-05-27] MEDS: Glucose Oral Gel 15 GM/37.5 GM TUBE PO (07:33)
[2024-05-27 07:34] LABS: Anion Gap 8.6 mmol/L (3-11); BUN 23 mg/dL (7-18); CO2 25.4 mmol/L (21.0-32.0); CREATININE 0.9 mg/dL (0.55-1.02); Calcium 8.9 mg/dL (8.5-10.1); Chloride 105 mmol/L (98-107); Estimated GFR 66.26 (mL/min/1.73m2); Glucose 73 mg/dL (74-106); Potassium 3.9 mmol/L (3.5-5.1); Sodium 139 mmol/L (136-145)
[2024-05-27 08:19] LABS: Magnesium 1.5 mg/dL (1.8-2.4)
[2024-05-27] MEDS: Aspirin 81 MG CHEW PO (08:42)
[2024-05-27] MEDS: Cyanocobalamin 500 MCG TAB 1000 MCG PO (08:42)
[2024-05-27] MEDS: Empaglifozin 10 MG TAB PO (08:42)
[2024-05-27] MEDS: Magnesium Oxide 400 MG TAB PO (08:42)
[2024-05-27] MEDS: Lisinopril 10 MG TAB PO (08:43)
[2024-05-27] MEDS: dilTIAZem CD 120 MG CAPCR PO (08:43)
[2024-05-27] MEDS: Omeprazole 20 MG CAPCR PO (08:43)
[2024-05-27] MEDS: Metoprolol CR 50 MG TABCR 150 MG PO (08:43)
[2024-05-27] MEDS: Nystatin POWDER 15 GM JAR TP ×2 (09:51→21:51)
--- NOTE | 2024-05-27 10:57 | PCNE_ITS ---
Date of service: 05/27/24 Time of Service: 09:30 History of Present Illness Narrative: Ms. Arnett is an est PC patient, currently inpatient at [facility] 2/2 hyperglycemia; PMHx include IDDM2, a fib, CHF, CKD, HTN, urinary retention w/suprapubic cath w/frequent UTIs Hospital Course: presented to ED on 05/26 w/CC of CP and diarrheal symptoms. on work up found to be hyperglycemic w/BS >500. admitted to [facility] for ongoing monitoring and BS management. - per staff: low BS of 58 this morning w/mild symptoms; 2 stools overnight, none so far today; suprapubic cath in place recent hospitalizations: ED 04/26, initially HH called EMS d/t concerns for tachycardia w/A fib, cleared, SMITH sxs treated; 04/14- in A fib, w/DM wounds, per her report these are healed today Hope lives by herself in apartment in [facility]. She returned there after living w/daughter Beatriz in [facility] for a time s/p discharge from r/t heart problems, presumably A fib, where per her report they were going to try to place a pacemaker, however she was too weak to complete procedure. She has been feeling well at home, happy to be home and living independently by herself again. She feels safe navigating home, able to prepare own meals, use bathroom and clean self up s/p occasional incontinence, use shower herself. She uses [facility] for transportation for shopping etc, though admits these trips knock her out and she has extreme fatigue after, requiring some assistance from new autos delivery driver w/getting things on/off bus. She needs more help with cleaning home, this has been a long standing issue for her. She continues to want to work on downsizing and decluttering apartment, but admits this is hard for her. For example, she is holding on to bird's things bc it hurts my heart to get rid of them. Unfortunately, her apartment building continues to have problem with bed bugs, which previously impacted her ability to have cleaning assistance from her home help agencies. Endorses ongoing bedbug issues today, denies any bites currently, but states still does get some occasionally. She no longer has her bird Echo, she is now w/daughter Beatriz. Hope misses her dearly, but knows this was best for bird. She combats loneliness w/TV, the noises help her not feel alone. Compared to previous visits, she reports financially she is much better, now has some money in my pockets. Continues to make monthly payment to unidentified source, feels much more manageable for her, no plans to discontinue these payments. She reports these payments are all legal, though through conversation indicates it may still be going to person whom previously scammed her. She plans to continue making these payments, w/shot coat tender goal to have a large sum of money paid back to her, which she intends to help herself and set her daughter Katharina and grandson up well for life. She checks her BS regularly at home, svetlana when she is not feeling well. She reports she feels symptomatic when BS >300. She uses insulin 3 times daily, one time w/LA, and twice w/SA. She denies issues w/administering insulin. Does admit on days when she feels off, requires assistance from for administration of insulin. She remains a full code, consistent w/previous conversations. She wants all things done to keep her alive, her goal is to see this lump sum of money before she dies. She does have Katharina's name on all paperwork for this money, so does not need to be alive for Katharina to receive it (as previously stated in past visits). She is aware she would likely need to be hospitalized, would have ventilation, etc. She is consistent in stating that she would want all LST done, trials of everything, for 2 weeks. and if after two weeks unlikely to regain consciousness or be alive on w/machines, she would want transition to comfort directed care. Her HCA remains her daughter Katharina. Assessment and Plan Assessment and plan (1) Acute dehydration: Status: Acute Assessment and plan: continue IVF as needed encouraging PO fluid intake (2) Acute hyperglycemia: Status: Acute Assessment and plan: w/hypoglycemic episode this morning poorly controlled continue insulin SS may benefit from review of home medication dosing/SSI, etc (3) Diarrhea: Status: Acute Assessment and plan: potentially improving, continue to monitor (4) (HFpEF) heart failure with preserved ejection fraction: Status: Acute (5) Atrial fibrillation with rapid ventricular response: Status: Acute Assessment and plan: currently controlled potentially was to be candidate for pacemaker, per her report. see for additional information (6) Full code status: Status: Acute Assessment and plan: reviewed risks of CPR, she is aware; FULL CODE STATUS remains (7) Advance care planning: Status: Acute Assessment and plan: reviewed CODE status as above; would want all LST attempted for 2 weeks, if no chance of recovering to consciousness or living w/o machine intervention, would want transition to comfort directed care. Katharina, daughter HCA goal to return home to her own apartment, if could not return home safely, would want to avoid NH, would not want to return to [facility] but open to other living environments (potentially [facility]?) (8) Palliative care patient: Status: Acute Assessment and plan: PC will resume care with Hope in [facility], HV to be scheduled for around 1 mo Review of Systems Narrative: as per HPI PFSH All Active Problems (Updated 05/27/24 @ 11:35 by Ellen Prince NP) Palliative care patient (Acute) Acute dehydration (Acute) Acute hyperglycemia (Acute) Diarrhea (Acute) (HFpEF) heart failure with preserved ejection fraction (Acute) Hypomagnesemia (Acute) Acute UTI (Acute) Neuropathy due to type 2 diabetes mellitus (Acute) Onychomycosis (Acute) Fall (Acute) Syncope (Chronic) Atrial fibrillation with rapid ventricular response (Acute) Diabetic hyperosmolar non-ketotic state (Acute) AMS (altered mental status) (Acute) Acute UTI (Acute) Acute hyperglycemia (Acute) Full code status (Acute) Advance care planning (Acute) Brain TIA (Acute) Vitamin B12 deficiency (Acute) CVA (cerebral vascular accident) (Chronic) Impaired instrumental activities of daily living (Acute) DNR (do not resuscitate) (Acute) Loneliness (Acute) Chronic kidney disease (CKD) (Chronic) Venous stasis dermatitis (Acute) Decreased activities of daily living (ADL) (Acute) Need for home health care (Acute) Nephrolithiasis (Chronic) Sacral decubitus ulcer, stage II (Acute) Wound of right lower extremity (Acute) Hyperglycemia (Acute) Trochanteric bursitis, right hip (Acute) Right ankle sprain (Acute) Hip pain, right (Acute) GI bleed (Acute) Fracture, lumbar vertebra, compression (Acute) PSVT (paroxysmal supraventricular tachycardia) (Acute) Poorly controlled diabetes mellitus (Chronic) Transient neurologic deficit (Acute) Fungal dermatitis (Acute) Atrial flutter (Acute) Vaginal bleeding, abnormal (Acute) Atrial fibrillation and flutter (Chronic) Diabetes mellitus type 2 in obese (Chronic) Fracture of femoral neck, right (Acute) Retention, urine (Chronic) Medical History Beth infection Urinary retention (03/31/16) Infestation by bed bug Hx of malignant melanoma GERD (gastroesophageal reflux disease) H/O menorrhagia Supraventricular tachycardia History of traumatic fracture of hip Unsteady gait Hard of hearing Vision changes Anemia 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 Palliative care encounter Pulmonary hypertension Multiple rib fractures involving four or more ribs Hypertension S/P right hip fracture TIA (transient ischemic attack) Hyperlipidemia Atrial fibrillation CHF (congestive heart failure) LVEF 50-55%, diastolic dysfunction Diabetes Cataracts, bilateral Surgical History History of bilateral cataract extraction History of suprapubic catheter Status post right hip replacement Family History Other Diabetes Heart disease Hyperlipidemia Hypertension Stroke Social History Smoking/Tobacco Use Status: Former Tobacco Use Smoking risk assessment performed?: Yes Alcohol Intake: never Drug use: Never Substance use type: does not use Household members: none Housing: apartment Do you feel safe at home: Yes Do you feel safe in your relationship?: Yes Additional Social history: Lives alone[address] Does not drive. Exam Narrative Exam Narrative: General: sitting in recliner throughout visit, comfortable, calm, cooperative HEENT: hearing grossly WNL; normocephalic, atraumatic, hearing grossly WNL Resp: even and unlabored, speaks full sentences w/o SOB; no coughing, no audible wheeze : catheter bag w/scant clear yellow urine noted Psych: speech/movement WNL; thought process normal to impoverished/loose association; mood/affect congruent/normal; insight/judgment fair Results Last Vital Signs Temp 97.3 F L 05/27/24 07:45 Pulse 94 H 05/27/24 07:45 Resp 16 05/27/24 07:45 BP 136/82 05/27/24 07:45 Pulse Ox 98 05/27/24 07:45 Labs 05/26/24 22:41 05/27/24 06:24 Labs: Laboratory Results - last 24 hr 05/26/24 05/26/24 05/27/24 22:41 23:06 00:30 WBC 6.66 RBC 4.48 Hgb 9.9 L Hct 34.9 L MCV 78 L MCH 22.1 L MCHC 28.4 L RDW 18.7 H Plt Count 513 H MPV 9.9 Immature Gran % 0.3 Neutrophils % 61.3 Lymphocytes % 24.5 Monocytes % 11.0 Eosinophils % 2.0 Basophils % 0.9 Nucleated RBC % 0.0 Absolute Neutrophils 4.09 Absolute Lymphocytes 1.63 Absolute Monocytes 0.73 Absolute Eosinophils 0.13 Absolute Basophils 0.06 PT Cancelled 12.9 H INR Cancelled 1.3 H APTT Cancelled 30.3 VBG pH 7.33 VBG pCO2 46 VBG pO2 35 VBG HCO3 24 VBG Total CO2 23 L VBG O2 Saturation 57 VBG Base Excess -2 Sodium Cancelled 133 L 130 L Potassium Cancelled 5.2 H 5.2 H Chloride Cancelled 99 97 L Carbon Dioxide Cancelled 25.2 23.7 Anion Gap Cancelled 8.8 9.3 BUN Cancelled 27 H 29 H Creatinine Cancelled 1.4 H 1.3 H Est GFR (CKD-EPI 2020) Cancelled 38.99 42.62 Glucose Cancelled 584 H* 631 H* Calcium Cancelled 8.8 8.9 Magnesium Total Bilirubin Cancelled 0.27 AST Cancelled 12 L ALT Cancelled 17 Alkaline Phosphatase Cancelled 91 Troponin I Cancelled 7 7 Total Protein Cancelled 7.3 Albumin Cancelled 3.0 L Lipase Cancelled 111 H Urine Color Urine Clarity Urine pH Ur Specific [place] Urine Protein Urine Ketones Urine Blood Urine Nitrite Urine Bilirubin Urine Urobilinogen Ur Leukocyte Esterase Urine RBC Urine WBC Ur Epithelial Cells Urine Crystals Urine Bacteria Urine Casts Urine Mucus Ur Culture Indicated? Urine Glucose Stl C.difficile Tox PCR Negative 05/27/24 05/27/24 05/27/24 03:10 06:00 06:24 WBC RBC Hgb Hct MCV MCH MCHC RDW Plt Count MPV Immature Gran % Neutrophils % Lymphocytes % Monocytes % Eosinophils % Basophils % Nucleated RBC % Absolute Neutrophils Absolute Lymphocytes Absolute Monocytes Absolute Eosinophils Absolute Basophils PT INR APTT VBG pH VBG pCO2 VBG pO2 VBG HCO3 VBG Total CO2 VBG O2 Saturation VBG Base Excess Sodium 139 Potassium 3.9 D Chloride 105 Carbon Dioxide 25.4 Anion Gap 8.6 BUN 23 H Creatinine 0.9 Est GFR (CKD-EPI 2020) 66.26 Glucose 73 L Calcium 8.9 Magnesium 1.5 L Total Bilirubin AST ALT Alkaline Phosphatase Troponin I 7 Total Protein Albumin Lipase Urine Color Yellow Urine Clarity Clear Urine pH 7.0 Ur Specific [place] 1.015 Urine Protein Negative Urine Ketones Negative Urine Blood Negative Urine Nitrite Negative Urine Bilirubin Negative Urine Urobilinogen 0.2 Ur Leukocyte Esterase Trace H Urine RBC 3-5 H Urine WBC 10-20 H Ur Epithelial Cells Rare Urine Crystals Negative Urine Bacteria Moderate Urine Casts Negative Urine Mucus Negative Ur Culture Indicated? Yes Urine Glucose >=1000 H Stl C.difficile Tox PCR Time Spent Time Spent with Patient Time Spent(min): 70
--- NOTE | 2024-05-27 11:29 | CHAPLAIN ---
Hope and I remembered each other from her previous admissions. She said she is feeling much better today. Hope talked about growing up in [facility], moving to other states with her family and eventually coming back to [place]. She has a sister in [place] and a daughter who lives near [place], but Hope is not in contact with either of them. She said she is closest to her daughter, Gloria, who lives in [place]. Hope was happy to tell me about Gloria's ten-month old son, Mateo and all that he is doing. [facility] that faces [address]. She said she likes living there.
[2024-05-27] MEDS: Insulin Aspart 300 UNITS/3 ML PEN SC ×3 (12:05→23:21)
[2024-05-27 12:18] LABS: Anion Gap 9.7 mmol/L (3-11); BUN 21 mg/dL (7-18); CO2 25.3 mmol/L (21.0-32.0); Calcium 8.9 mg/dL (8.5-10.1); Chloride 102 mmol/L (98-107); Estimated GFR 58.39 (mL/min/1.73m2); Glucose 278 mg/dL (74-106); Potassium 4.6 mmol/L (3.5-5.1); Sodium 137 mmol/L (136-145)
--- NOTE | 2024-05-27 14:07 | INITIAL_ITS ---
Date of service: 05/27/24 Time of Service: 11:00 Care Management Initial Assmt Initial Assessment Reason for Hospitalization: acute diarrhea, dehydration Functional Status/Living Situation Patient Presentation: Hope was admitted through the ED yesterday when she called EMS due to chest discomfort. The chest pain was relieved when she began to have large amounts of loose brown stool. She continued to have frequent, large loose stools, and became clinically dehydrated. Her C. Diff was negative. Hope was up in the bedside chair when CM met with her. Hope was pleasant and very talkative. She is feeling much better and is hopeful to go home later today. Town of Residence: [facility] Resides with: Alone Significant Other/Family: Out of area (Daughter Beatriz lives in [place]. Daughter, Katharina, lives in [place].) Natural Supports: Daughters. [employer] workers Employment Status: Retired Instrumental Activities of Daily Living (ADLs): Independent Activities/Hobbies/SocialSupport: Enjoys riding the [facility] bus for errands and talking with the other riders. Medications Medication Management: No Issues/Barriers identified (she stated she follows PCP orders. Blood sugar on admit >500) Physical Functioning/Mobility Assistive Device: uses a cane, and has a chronic urinary catheter Advance Directives Advance Directives: Do you have an Advance Directive: N 07/08/22 13:33 AD On File at [facility]: N 07/08/22 13:33 Date Asked 05/27/24 05/27/24 02:43 AD Date Reviewed COLST On File at [facility] Yes 04/29/23 05:38 COLST Date Scanned 04/29/23 04/29/23 05:38 Code Status Resuscitation Status Full Code Insurance Coverage/Financial Issues Insurance: [id number] Mcr replacement, medicaid Financial Issues: denies Care Team Visit Care Team Role Provider Type Dean Camilo Primary Care Provider NON-[facility] STAFF PHYSICIAN Cullen Ponce DO Emergency Provider [facility] STAFF PHYSICIAN Sunil Borrero Admit Provider NON-[facility] STAFF PHYSICIAN Attending Provider Discharge Potential Discharge Needs: PCP F/U Appt Anticipated Barriers to Discharge: None Identified Patient/Family Education Needs: Review discharge instructions, discuss Ask Me Three [facility]: [facility] Plan: Anticipate that Hope will be discharged home with no new services, but will have resumption of her RN and PT. Hope will f/u with her PCP and continue per her plan of care. She will transport home in a private vehicle with [facility]. CM will continue to follow. PFSH All Active Problems (Updated 05/27/24 @ 11:35 by Ellen Prince NP) Palliative care patient (Acute) Acute dehydration (Acute) Acute hyperglycemia (Acute) Diarrhea (Acute) (HFpEF) heart failure with preserved ejection fraction (Acute) Hypomagnesemia (Acute) Acute UTI (Acute) Neuropathy due to type 2 diabetes mellitus (Acute) Onychomycosis (Acute) Fall (Acute) Syncope (Chronic) Atrial fibrillation with rapid ventricular response (Acute) Diabetic hyperosmolar non-ketotic state (Acute) AMS (altered mental status) (Acute) Acute UTI (Acute) Acute hyperglycemia (Acute) Full code status (Acute) Advance care planning (Acute) Brain TIA (Acute) Vitamin B12 deficiency (Acute) CVA (cerebral vascular accident) (Chronic) Impaired instrumental activities of daily living (Acute) DNR (do not resuscitate) (Acute) Loneliness (Acute) Chronic kidney disease (CKD) (Chronic) Venous stasis dermatitis (Acute) Decreased activities of daily living (ADL) (Acute) Need for home health care (Acute) Nephrolithiasis (Chronic) Sacral decubitus ulcer, stage II (Acute) Wound of right lower extremity (Acute) Hyperglycemia (Acute) Trochanteric bursitis, right hip (Acute) Right ankle sprain (Acute) Hip pain, right (Acute) GI bleed (Acute) Fracture, lumbar vertebra, compression (Acute) PSVT (paroxysmal supraventricular tachycardia) (Acute) Poorly controlled diabetes mellitus (Chronic) Transient neurologic deficit (Acute) Fungal dermatitis (Acute) Atrial flutter (Acute) Vaginal bleeding, abnormal (Acute) Atrial fibrillation and flutter (Chronic) Diabetes mellitus type 2 in obese (Chronic) Fracture of femoral neck, right (Acute) Retention, urine (Chronic) Medical History Beth infection Urinary retention (03/31/16) Infestation by bed bug Hx of malignant melanoma GERD (gastroesophageal reflux disease) H/O menorrhagia Supraventricular tachycardia History of traumatic fracture of hip Unsteady gait Hard of hearing Vision changes Anemia 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 Palliative care encounter Pulmonary hypertension Multiple rib fractures involving four or more ribs Hypertension S/P right hip fracture TIA (transient ischemic attack) Hyperlipidemia Atrial fibrillation CHF (congestive heart failure) LVEF 50-55%, diastolic dysfunction Diabetes Cataracts, bilateral Surgical History History of bilateral cataract extraction History of suprapubic catheter Status post right hip replacement Family History Other Diabetes Heart disease Hyperlipidemia Hypertension Stroke Social History Smoking/Tobacco Use Status: Former Tobacco Use Smoking risk assessment performed?: Yes Alcohol Intake: never Drug use: Never Substance use type: does not use Household members: none Housing: apartment Do you feel safe at home: Yes Do you feel safe in your relationship?: Yes Additional Social history: Lives alone. [address] Does not drive. Readmission Within the Past 30 Days Yes or No: No SDOH(Care Management) Screening Will the Patient Participate in the Screening?: Yes Do you worry about having a steady place to live?: no Problems where you live: pests such as bugs, ants or mice (building has a long problem of bed bugs) In the past 12 months, have you had to go without electric, gas, oil or water in your home?: no Have you or anyone in your house had to go without enough food to eat?: no Has lack of transportation kept you from medical appointments or from doing things needed for daily living?: no Has anyone in your support network made you feel unsafe for any reason?: no Health Related Social Needs Health related social needs: inadequate housing(Z59.1) Anticipated HH Services Anticipated HH Services at Discharge [facility] Resumption, PT and RN Anticipated Date of Discharge: 01/12. Following Provider: Dean Camilo.
--- NOTE | 2024-05-27 17:05 | PHA.REVIEW2 ---
Pharmacy Admission Review Admission Clinical Review Admission Pharmacy Review: Palliative care patient (Acute) Acute dehydration (Acute) Acute hyperglycemia (Acute) Diarrhea (Acute) (HFpEF) heart failure with preserved ejection fraction (Acute) Atrial fibrillation with rapid ventricular response (Acute) Full code status (Acute) Advance care planning (Acute) trazodone Adverse Reaction (Intermediate, Verified 04/26/24 13:44) [place] Resuscitation Status Full Code Height 5 ft 6.5 in Weight 83.4 kg Pharmacy Admission Review Renal Dosing Renal Dosing: BUN 21 mg/dL (7-18) H 05/27/24 11:45 Creatinine 1.0 mg/dL (0.55-1.02) 05/27/24 11:45 Medications needing adjustments: Reviewed (crcl = 52, no adjustments needed) Anticoagulation Anticoagulation: Hgb 9.9 g/dL (11.2-15.7) L 05/26/24 22:41 Hct 34.9 % (36.0-46.0) L 05/26/24 22:41 Plt Count 513 10^3/uL (130-400) H 05/26/24 22:41 INR 1.3 (0.9-1.1) H 05/26/24 23:06 Creatinine 1.0 mg/dL (0.55-1.02) 05/27/24 11:45 DVT Prophylaxis: Reviewed Medications: Rivaroxaban Therapeutic Anticoagulation: Reviewed Medications: Rivaroxaban (15 mg daily, indication: Afib) Opiate Usage Evaluate Pain Scale/Pains Meds: Reviewed (not on opiates) Relevant Labs Relevant Labs: Sodium 137 mmol/L (136-145) 05/27/24 11:45 Potassium 4.6 mmol/L (3.5-5.1) 05/27/24 11:45 Chloride 102 mmol/L (98-107) 05/27/24 11:45 Magnesium 1.5 mg/dL (1.8-2.4) L 05/27/24 06:24 Electrolytes, C-Reactive P, ESR: Reviewed (mag ox 400 mg daily) DM Control DM Control: Reviewed Insulin Dosing, Diabetic Medication: insulin aspart ss w/meals + jardiance 10 mg daily. home metformin + lantus (50 units qhs) currently held Cardiac Review Cardiac Review: Troponin I 7 ng/L (<or=51) 05/27/24 03:10 BP, HR, EF%: Reviewed (WNL. on diltiazem, lisinopril, metoprolol succ) QTc Review QTc: Reviewed (QTc = 454 05/26/24) IV to PO Switch IV Medications: Reviewed (no IV meds currently ordered) Home Meds Home Med List reviewed: Reviewed Current Meds Current Medication Order Review: Reviewed
[2024-05-27] MEDS: Rivaroxaban 15 MG TABLET PO (17:44)
[2024-05-27 18:16] LABS: Anion Gap 9.7 mmol/L (3-11); BUN 18 mg/dL (7-18); CO2 24.3 mmol/L (21.0-32.0); Chloride 103 mmol/L (98-107); Estimated GFR 58.39 (mL/min/1.73m2); Glucose 184 mg/dL (74-106); Potassium 4.3 mmol/L (3.5-5.1); Sodium 137 mmol/L (136-145)
[2024-05-27] MEDS: Acetaminophen 325 MG TAB PO (18:39)
[2024-05-27] MEDS: Atorvastatin 40 MG TAB 80 MG PO (19:42)
[2024-05-27] MEDS: Normal Saline Flush 10 ML SYR IVP (19:42)
[2024-05-28 00:31] LABS: Anion Gap 9.9 mmol/L (3-11); BUN 22 mg/dL (7-18); CO2 23.1 mmol/L (21.0-32.0); Calcium 8.6 mg/dL (8.5-10.1); Chloride 102 mmol/L (98-107); Estimated GFR 58.39 (mL/min/1.73m2); Glucose 304 mg/dL (74-106); Sodium 135 mmol/L (136-145)
[2024-05-28 00:56] LABS: Magnesium 1.4 mg/dL (1.8-2.4)
[2024-05-28 03:47] VITALS: BP 133/83; PULSE 76; RESP 16; TEMP 36; O2SAT 95
[2024-05-28 06:33] LABS: HCT 35.1 % (36.0-46.0); HGB 10.2 g/dL (11.2-15.7); MCH 22.5 pg (27.0-33.0); MCHC 29.1 % (32.0-36.0); MCV 78 fL (80-95); Platelet Count 503 10^3/uL (130-400); RBC 4.53 10^6/uL (3.93-5.22); RDW 18.9 % (11.7-14.6); RDW-SD 53.3 fL; WBC 5.88 10^3/uL (4.4-10.8)
[2024-05-28 07:25] VITALS: BP 142/73; PULSE 88; RESP 14; TEMP 36.6; O2SAT 97
[2024-05-28] MEDS: Magnesium Oxide 400 MG TAB PO (08:17)
[2024-05-28] MEDS: Metoprolol CR 50 MG TABCR 150 MG PO (08:18)
[2024-05-28] MEDS: Lisinopril 10 MG TAB PO (08:18)
[2024-05-28] MEDS: Empaglifozin 10 MG TAB PO (08:18)
[2024-05-28] MEDS: dilTIAZem CD 120 MG CAPCR PO (08:18)
[2024-05-28] MEDS: Omeprazole 20 MG CAPCR PO (08:19)
[2024-05-28] MEDS: Cyanocobalamin 500 MCG TAB 1000 MCG PO (08:19)
[2024-05-28] MEDS: Insulin Aspart 300 UNITS/3 ML PEN SC (08:19)
[2024-05-28] MEDS: Aspirin 81 MG CHEW PO (08:19)
[2024-05-28] MEDS: Normal Saline Flush 10 ML SYR IVP (08:19)
--- NOTE | 2024-05-28 08:27 | DSE_ITS ---
Date of service: 05/28/24 Time of Service: 08:28 DS: Diagnosis Discharge Diagnosis (1) Acute dehydration: Status: Acute (2) Acute hyperglycemia: Status: Acute (3) Diarrhea: Status: Acute (4) (HFpEF) heart failure with preserved ejection fraction: Status: Acute (5) Atrial fibrillation with rapid ventricular response: Status: Acute (6) Full code status: Status: Acute (7) Advance care planning: Status: Acute (8) Palliative care patient: Status: Acute Discharge Plan Disposition Patient Disposition: Home W/Home Health Services Condition: Good Discharge Details Reason For Visit: Acute diarrhea, dehydration with CKD.... Admit Date/Time: 05/27/24 02:05 Admit Provider: Sunil Borrero Attending Provider: Sunil Borrero Primary Care Provider: Dean Camilo Hospital Course Hospital Course: Patient was initially admitted under observation for enteritis with ongoing diarrhea and poor p.o. intake with concerns for worsening dehydration. However, shortly after patient was admitted her bowel movements returned to normal and she was able to tolerate normal p.o. intake. She is not had any additional loose or frequent bowel movements. Ultimately was determined that she was stable for discharge home. Home Meds and New Rx's Prescriptions: Continued Jardiance 10 mg tablet 10 mg PO DAILY insulin lispro [Humalog KwikPen Insulin] 100 unit/mL insulin pen 12 unit SUBCUT QMEALS Patient Comments: INJECT 12 UNITS SUBCUTANEOUSLY DIRECTED WITH MEALS (DME) Depend Underwear For Women Lrg Misc See Rx Instructions .Route Qty: 100 11RF Rx Instructions: Depends pull up large magnesium oxide [MagOx] 400 MG tablet 400 mg PO DAILY Qty: 30 0RF omeprazole 20 MG capsule,delayed release(DR/EC) 20 mg PO DAILY Qty: 30 0RF metformin 500 mg tablet 500 mg PO BID atorvastatin 80 mg tablet 80 mg PO DAILY ciclopirox 0.77 % cream 1 applic TOPICAL PRN Patient Comments: APPLY TO AFFECTED AND SURROUNDING AREAS OF SKIN TOPICALLY TWO TIMES A DAY IN THE MORNING AND EVENING insulin glargine [Lantus Solostar U-100 Insulin] 100 unit/mL (3 mL) Insulin Pen 50 unit subcut HS Patient Comments: takes 50 units per patient cyanocobalamin (vitamin B-12) 1,000 mcg tablet 1,000 mcg PO DAILY Patient Comments: TAKE ONE TABLET BY MOUTH EVERY DAY metoprolol succinate 50 mg Tablet Extended Release 24 Hr 150 mg PO DAILY Qty: 90 0RF lisinopril 10 mg Tablet 10 mg PO DAILY Qty: 90 0RF diltiazem HCl 120 mg Capsule,Extended Release 24hr 120 mg PO DAILY Qty: 90 0RF Xarelto 15 mg Tablet 15 mg PO DAILY@1700 Qty: 90 0RF aspirin [Children's Aspirin] 81 mg Tablet,Chewable 81 mg PO DAILY Qty: 0 0RF nystatin 100,000 unit/gram powder 1 applic topical BID Qty: 60 0RF Discontinued cefpodoxime 200 mg Tablet 200 mg PO BID Qty: 12 0RF sulfamethoxazole-trimethoprim 800-160 mg Tablet 1 tab PO BID Qty: 12 0RF Discharge Instructions Activity:: Activity as Tolerated Equipment/Supplies:: No Equipment Needed Diet:: As Tolerated Discharge Orders Discharge Orders: Discharge Order (Routine); Ordered 05/28/24 Ordered By: Audie Knight DS: Summary Time Spent with Patient providing and/or coordinating discharge services: Greater than 30 minutes Status at Discharge Functional status at discharge: independent ambulation Overall status at discharge: patient is back to baseline Mental Status: mental status grossly normal Speech and Movement: speech and movement normal Mood: congruent mood Affect: normal affect Quality:SDOH Health Related Social Needs: Health related social needs inadequate housing(Z59.1) Exam Narrative Exam Narrative: well appearing older female sitting up in the chair in no acute distress, AOx4, heart irregularly irregular, lungs CTAB, abdomen soft, non-tender, non-distended Psych Mental Status: mental status grossly normal Speech and Movement: speech and movement normal Mood: congruent mood Affect: normal affect DS: Data Vitals/I&O Vitals and I&O: Vital Signs Temperature 97.9 F 05/28/24 07:25 Temperature Source Temporal Artery Scan 05/28/24 07:25 Pulse 88 05/28/24 07:25 Pulse Rhythm Irregular 05/27/24 03:15 Pulse 94 H 05/27/24 01:30 Respiratory Rate 14 05/28/24 07:25 Respiratory Effort Normal, Non-Labored 05/27/24 03:15 Respiratory Depth Normal 05/27/24 03:15 Respiratory Pattern Normal 05/27/24 03:15 Blood Pressure 142/73 H 05/28/24 07:25 Blood Pressure Mean 87 05/27/24 00:31 Blood Pressure Position Sitting 05/26/24 22:03 Pulse Oximetry 97 05/28/24 07:25 Oxygen Delivery Method Room Air 05/28/24 07:25 Oxygen Flow Rate 0 05/28/24 07:25 Pain Level 4 05/28/24 07:25 Intake & Output 05/27/24 05/28/24 05/28/24 17:59 05:59 17:59 Intake Total 2009 390 / 390 Output Total 1450 / 1450 2300 / 3750 Balance 560 / 560 -2290 / -1730 390 / 390 Weight 183 lb 13.848 oz Intake: IV 1000 / 1000 10 / 1010 10 10 Oral 1010 / 1010 380 / 380 Output: Urine 1450 / 1450 2300 / 3750 Other: Urine Color Yellow Pale Urine Appearance Clear Clear Stool Size Small Stool Characteristics Formed Brown Data Completed and Pending Labs on day of discharge: Labs from last 24 hours 05/28/24 05/27/24 05/27/24 06:20 23:48 17:43 WBC 5.88 RBC 4.53 Hgb 10.2 L Hct 35.1 L MCV 78 L MCH 22.5 L MCHC 29.1 L RDW 18.9 H Plt Count 503 H MPV 10.0 Sodium 135 L 137 Potassium 4.0 4.3 Chloride 102 103 Carbon Dioxide 23.1 24.3 Anion Gap 9.9 9.7 BUN 22 H 18 Creatinine 1.0 1.0 Est GFR (CKD-EPI 2020) 58.39 58.39 Glucose 304 H 184 H Calcium 8.6 9.0 Magnesium 1.4 L 05/27/24 11:45 WBC RBC Hgb Hct MCV MCH MCHC RDW Plt Count MPV Sodium 137 Potassium 4.6 Chloride 102 Carbon Dioxide 25.3 Anion Gap 9.7 BUN 21 H Creatinine 1.0 Est GFR (CKD-EPI 2020) 58.39 Glucose 278 H Calcium 8.9 Magnesium 05/27/24 06:00 Urine - Reflex from Urine Culture - Pending Preliminary micro results at discharge 05/27/24 06:00 Urine Culture - Pending Urine - Reflex from [facility] All Active Problems (Updated 05/28/24 @ 08:26 by Audie Knight MD) Palliative care patient (Acute) Acute dehydration (Acute) Acute hyperglycemia (Acute) Diarrhea (Acute) (HFpEF) heart failure with preserved ejection fraction (Acute) Hypomagnesemia (Acute) Acute UTI (Acute) Neuropathy due to type 2 diabetes mellitus (Acute) Onychomycosis (Acute) Fall (Acute) Syncope (Chronic) Atrial fibrillation with rapid ventricular response (Acute) Diabetic hyperosmolar non-ketotic state (Acute) AMS (altered mental status) (Acute) Acute UTI (Acute) Acute hyperglycemia (Acute) Full code status (Acute) Advance care planning (Acute) Brain TIA (Acute) Vitamin B12 deficiency (Acute) CVA (cerebral vascular accident) (Chronic) Impaired instrumental activities of daily living (Acute) DNR (do not resuscitate) (Acute) Loneliness (Acute) Chronic kidney disease (CKD) (Chronic) Venous stasis dermatitis (Acute) Decreased activities of daily living (ADL) (Acute) Need for home health care (Acute) Nephrolithiasis (Chronic) Sacral decubitus ulcer, stage II (Acute) Wound of right lower extremity (Acute) Hyperglycemia (Acute) Trochanteric bursitis, right hip (Acute) Right ankle sprain (Acute) Hip pain, right (Acute) GI bleed (Acute) Fracture, lumbar vertebra, compression (Acute) PSVT (paroxysmal supraventricular tachycardia) (Acute) Poorly controlled diabetes mellitus (Chronic) Transient neurologic deficit (Acute) Fungal dermatitis (Acute) Atrial flutter (Acute) Vaginal bleeding, abnormal (Acute) Atrial fibrillation and flutter (Chronic) Diabetes mellitus type 2 in obese (Chronic) Fracture of femoral neck, right (Acute) Retention, urine (Chronic) Medical History Beth infection Urinary retention (03/31/16) Infestation by bed bug Hx of malignant melanoma GERD (gastroesophageal reflux disease) H/O menorrhagia Supraventricular tachycardia History of traumatic fracture of hip Unsteady gait Hard of hearing Vision changes Anemia 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 Palliative care encounter Pulmonary hypertension Multiple rib fractures involving four or more ribs Hypertension S/P right hip fracture TIA (transient ischemic attack) Hyperlipidemia Atrial fibrillation CHF (congestive heart failure) LVEF 50-55%, diastolic dysfunction Diabetes Cataracts, bilateral Surgical History History of bilateral cataract extraction History of suprapubic catheter Status post right hip replacement Family History Other Diabetes Heart disease Hyperlipidemia Hypertension Stroke Social History Smoking/Tobacco Use Status: Former Tobacco Use Smoking risk assessment performed?: Yes Alcohol Intake: never Drug use: Never Substance use type: does not use Household members: none Housing: apartment Do you feel safe at home: Yes Do you feel safe in your relationship?: Yes Additional Social history: Lives alone. [address] Does not drive. Time Spent with Patient Time Spent with Patient: <45 minutes Time was spent: preparing to see the patient(eg.review tests), obtaining and/or reviewing separately otained hiistory, ordering medications,tests, procedures, referring, communicating with other health manager of care, indepentently interpreting results, counseling the patient and care coordination
--- NOTE | 2024-05-28 08:27 | PDOC.HHF2F_ITS ---
Home Health Referral Home Health Orders Clinical synopsis of why skilled professionals are needed: CKD, IDDM, A-fib Registered Nurse: Check all that apply Instruct on new or changed medication(s)/assess compliance: Ordered Assess for exacerbation of medical condition, instruct patient/caregivers on signs and symptoms to report for early detection: Ordered Physical Therapist: Check all that apply Increase strength & endurance for safe mobility at home: Ordered To design/establish home maintenance program: Ordered Fall reduction therapy program for patient with history of frequent falls: Ordered Home safety evaluation and teaching/gait training including stair management (if applicable): Ordered Occupational Therapist: Evaluate and treat for patient unable to perform ADL/IADL/self-care: Ordered Multi Sensor Operator: Assist with community resources: Ordered Assist with [facility] care planning: Ordered Home Bound Status Requires the aid of supportive device (check all that apply): Walker Encounter Date and Reason: I certify that a FTF encounter for this patient was performed on May 28, 2024 and that such encounter was related to the primary reason the patient requires home health services. The encounter was conducted in the following manner: * By me as the certifying physician, PHARMACY TECHNICIAN ASSISTANT, PA or * By an inpatient physician, PHARMACY TECHNICIAN ASSISTANT or PA during an inpatient stay who communicated findings to me, Certification And Authentication I certify that I composed the above information based on my clinical judgment relating to this patient's medical condition and, if applicable, clinical findings communicated to me by the NPP or inpatient physician who performed the FTF encounter. Name of Provider that will be monitoring home health services: Dean Camilo
--- NOTE | 2024-05-28 08:50 | PDOC.CMDIS ---
Date of service: 05/28/24 Time of Service: 08:50 LACE Index Scoring Tool Questions: Length of Stay (in days): 1 Was the patient admitted via the E.D.?: Yes Comorbidities: Cerebrovascular Disease, Diabetes w/o Complication, Congestive Heart Failure and Liver or Renal Disease E.D. Visits: 4 Answers: Total Score: 13 Risk of Readmission: High Risk Care Management Discharge Plan Reason for Hospitalization: Acute diarrhea, dehydration Discharge Plan: Hope will return home today with a resumption of HH RN, PT, and the addition of OT, MANAGER ENVIRONMENTAL HEALTH AND SAFETY. She will transport home via [facility] private vehicle, coordinated by CM. She will follow up with her PCP and discharge plan of care. Patient/Family Education Needs: Review discharge instructions and limitations, discussion of self care needs including ask me three. Services Needed at Discharge: Home Health Care Services (resume HH RN, PT add OT, MANAGER ENVIRONMENTAL HEALTH AND SAFETY) and Transportation ([facility] private vehicle) SDOH Health Related Social Needs: Health related social needs inadequate housing(Z59.1) Health related social needs: inadequate housing(Z59.1)
[2024-05-28 14:01] LABS: Campylobacter PCR Negative (Negative); Salmonella PCR Negative (Negative); Shiga Toxin PCR Negative (Negative); Shigella/Enteroinvasive Ecoli Negative (Negative)
== END 2024-05-28 09:52 | disposition home health service (06) ==
LOC: ER 05-27 02:43 → MS 05-27 02:57
PROVIDERS: Admitting Provider Family Medicine; Emergency Provider Student in an Organized Health Care Education/Training Program; PCP Physician Assistant; Visit Provider Family Medicine
DX: E86.0 Dehydration (principal); E11.65 Type 2 diabetes mellitus with hyperglycemia; I13.0 Hypertensive heart and chronic kidney disease with heart failure and stage 1 through stage 4 chronic kidney disease, or unspecified chronic kidney disease; K52.9 Noninfective gastroenteritis and colitis, unspecified; I48.92 Unspecified atrial flutter; I47.19 Other supraventricular tachycardia; R33.9 Retention of urine, unspecified; I50.32 Chronic diastolic (congestive) heart failure; N18.32 Chronic kidney disease, stage 3b; D64.9 Anemia, unspecified; Z79.01 Long term (current) use of anticoagulants; R29.6 Repeated falls; I69.392 Facial weakness following cerebral infarction; E11.22 Type 2 diabetes mellitus with diabetic chronic kidney disease; I69.322 Dysarthria following cerebral infarction; E11.40 Type 2 diabetes mellitus with diabetic neuropathy, unspecified; K21.9 Gastro-esophageal reflux disease without esophagitis; M06.00 Rheumatoid arthritis without rheumatoid factor, unspecified site; Z79.84 Long term (current) use of oral hypoglycemic drugs; Z93.51 Cutaneous-vesicostomy status; I48.91 Unspecified atrial fibrillation; Z79.4 Long term (current) use of insulin
CPT/HCPCS: 00123; 36415; 36416; 80048; 80053; 82805; 82962; 83690; 85027; 87493; 87505; 93005; 96360; 96361; 99285; 71045; 74177; 81003; 81015; 83735; 84484; 85025; 85610; 85730; 87086; 87177; 93010; 99223; 99239; G0378; J1815; J3490

== ENCOUNTER 2024-06-08 10:56 | Outpatient (REF) | payer MEDICARE, MEDICAID, SELFPAY | END 2024-06-08 10:57 | disposition home or self-care (01) | LOC: NCHCN 10:56 | PROVIDERS: PCP Physician Assistant; Visit Provider Physician Assistant | DX: R82.90 Unspecified abnormal findings in urine (principal); R82.89 Other abnormal findings on cytological and histological examination of urine | CPT/HCPCS: 87077; 87086; 87186 ==

== ENCOUNTER 2024-07-04 02:46 | Emergency (ER) | payer MEDICARE, MEDICAID, SELFPAY ==
[2024-07-04] VITALS (52 sets, daily range): BP systolic 137–181; BP diastolic 64–113; PULSE 86–107; RESP 16–17; TEMP 36.4–36.7; O2SAT 94–98
--- NOTE | 2024-07-04 02:45 | DI.CT_ITS ---
Exam(s) CT ABDOMEN PELVIS WO EXAM: CT ABDOMEN PELVIS WO CLINICAL HISTORY: bilateral flank pain. TECHNIQUE: Imaging Protocol: Axial computed tomography images with coronal and sagittal reformatted images were created and reviewed. Oral: / no COMPARISON: CT CT ABDOMEN PELVIS W from 05/26/2024 FINDINGS: Lung Bases: No acute findings. Liver: Normal density. No suspicious mass. Gallbladder and biliary tract: No radiodense calculus or biliary dilation. Pancreas: Normal density. No abnormal calcifications or inflammatory process. Spleen: Normal. Kidneys: Normal size, contour and axis. No radiodense stones. No obstructive uropathy. Stable simpl e cyst lower pole right kidney. No suspicious masses seen. Adrenal glands: No masses seen. Lymph nodes: Within normal limits. Vasculature: Abdominal aorta non-dilated. Soft tissues: Unremarkable chronic area of scarring in the lower anterior abdominal wall. Bladder: Empty. Suprapubic catheter in place. Bowel: No obstruction or bowel wall thickening. Peritoneal cavity: No ascites. No focal collection. No mesenteric inflammatory response. Reproductive organs: Unremarkable. Bones: Right hip prosthesis. Stable L1 compression fracture. Mild L3 compression fracture, new sinc e prior exam. Stable L4 compression fracture. New L5 mild compression fracture. IMPRESSION: Suprapubic catheter. No evidence of hydronephrosis. Mild compression fractures of L3 and L5 are new since the prior exam. RADIATION DOSE DELIVERED: 695.79mGy.cm Total DLP DATA REPOSITORY: All CT scans at this facility are submitted to the National Radiology Data Registry (NRDR) Dose Index Registry (DIR) with the [employer] (ACR). RADIATION OPTIMIZATION: All CT scans at this facility use at least one of these dose optimization te chniques: automated exposure control; mA and/or kV adjustment per patient size (includes targeted exa ms where dose is matched to clinical indication); or iterative reconstruction.
[2024-07-04 03:12] LABS: Abs Immature Grans 0.04 10^3/uL (0.0-0.06); Absolute Basophil Count 0.07 10^3/uL (0.0-0.2); Absolute Eosinophil Count 0.18 10^3/uL (0.0-0.7); Absolute Lymphocyte Count 1.58 10^3/uL (1.2-3.4); Absolute Monocyte Count 0.83 10^3/uL (0.1-0.8); Absolute Neutrophil Count 3.98 10^3/uL (1.2-6.7); Eosinophils % 2.7 %; HCT 38.1 % (36.0-46.0); HGB 10.8 g/dL (11.2-15.7); Immature Grans % 0.6 %; Lymphocytes % 23.7 %; MCH 22.3 pg (27.0-33.0); MCHC 28.3 % (32.0-36.0); MCV 79 fL (80-95); MPV 9.9 fL (8.0-11.0); Monocytes % 12.4 %; Neutrophils % 59.6 %; Platelet Count 581 10^3/uL (130-400); RBC 4.84 10^6/uL (3.93-5.22); RDW 19.5 % (11.7-14.6); WBC 6.68 10^3/uL (4.4-10.8)
[2024-07-04 03:14] LABS: Lactate 2.5 mmol/L (0.6-1.4)
[2024-07-04 03:24] LABS: Bilirubin Negative (Negative); Blood Large (Negative); Clarity Cloudy (Clear); Glucose 500 mg/dL (Negative); Ketones Negative (Negative); Leukocyte Esterase Trace (Negative); Nitrite Positive (Negative); Specific Gravity 1.015 (1.005-1.025); Urobilinogen 0.2 mg/dL (Up to 0.2)
[2024-07-04 03:24] LABS: INR 1.3 (0.9-1.1); PTT Activated 29.2 sec (20.6-30.2); Prothrombin Time 12.8 sec (9.1-11.1)
[2024-07-04 03:31] LABS: Bacteria Moderate HPF (Negative); C & S Indicated? Yes; Casts Negative LPF (Negative); Crystals Negative HPF (Negative); Epithelial Cells Few HPF (Negative); Mucus Moderate (Negative); RBC 20-50 HPF (0-2)
[2024-07-04 03:31] LABS: ALT 15 U/L (14-59); AST 12 U/L (15-37); Albumin 3.1 g/dL (3.4-5.0); Alkaline Phosphatase 134 U/L (46-116); Anion Gap 8.4 mmol/L (3-11); BUN 27 mg/dL (7-18); Bilirubin, Total 0.35 mg/dL (0.2-1.0); CO2 28.6 mmol/L (21.0-32.0); CREATININE 1.1 mg/dL (0.55-1.02); Calcium 9.5 mg/dL (8.5-10.1); Chloride 102 mmol/L (98-107); Estimated GFR 52.08 (mL/min/1.73m2); Glucose 287 mg/dL (74-106); Potassium 4.6 mmol/L (3.5-5.1); Sodium 139 mmol/L (136-145); Total Protein 7.6 g/dL (6.4-8.2)
--- NOTE | 2024-07-04 04:07 | DI.VRAD_ITS ---
PROCEDURE INFORMATION: Exam: CT Abdomen And Pelvis Without Contrast Exam date and time: 07/04/2024 3:25 AM Age: 74 years old Clinical indication: Prior surgery; Surgery date: 6+ months; Surgery type: R hip, suprapubic cath; Patient HX: Bilat flank pain TECHNIQUE: Imaging protocol: Computed tomography of the abdomen and pelvis without contrast. Radiation optimization: All CT scans at this facility use at least one of these dose optimization techniques: automated exposure control; mA and/or kV adjustment per patient size (includes targeted exams where dose is matched to clinical indication); or iterative reconstruction. COMPARISON: CT ABDOMEN PELVIS W 05/26/2024 11:35 PM FINDINGS: Tubes, catheters and devices: Suprapubic cystostomy catheter. Evaluation of the urinary bladder is limited due to its underdistended state and beam hardening artifact, grossly unremarkable. Liver: Normal. No mass. Gallbladder and biliary ducts: Normal. No calcified stones. No ductal dilation. Pancreas: Unremarkable. Spleen: Normal. Adrenal glands: Normal. No mass. Kidneys and ureters: Right renal cyst. Kidneys otherwise unremarkable. Stomach and bowel: Unremarkable. No bowel wall thickening or intestinal obstruction. Appendix: Normal appendix. Intraperitoneal space: Unremarkable. No pneumoperitoneum. No abscess. Vasculature: Unremarkable. Lymph nodes: Unremarkable. Urinary bladder: See Tubes, catheters and devices finding. Reproductive: Unremarkable as visualized. Bones/joints: Right hip prosthesis with associated beam hardening artifact. Multilevel chronic vertebral body compression fracture deformities. Compression fracture deformities of L3 and L4 are age indeterminate, potentially acute/subacute. L 4 vertebral body fracture is not significantly changed compared to prior study from 05/26/2024; however, the L3 vertebral body compression fracture is new since then. Soft tissues: Unremarkable. IMPRESSION: Compression fracture deformities of L3 and L4 are age indeterminate, potentially acute/subacute. L 4 vertebral body fracture is not significantly changed compared to prior study from 05/26/2024; however, the L3 vertebral body compression fracture is new since then. Dictated and Authenticated by: Ruben Boles MD. Ordering:CARLEY Berman MD
[2024-07-04] MEDS: cefTRIAXone 2 GM/50 ML BAG IVPB (04:36)
[2024-07-04] MEDS: Sulfameth/Trimeth DS TAB 1 TAB PO (04:37)
--- NOTE | 2024-07-04 04:55 | ED.GENADUL_ITS ---
Discharge Plan Disposition Patient Disposition: Home Condition: Good Discharge Details Clinical Impression: Recurrent UTI, Hematuria Primary Care Provider: Dean Camilo ED Provider: Cullen Ponce Home Meds and New Rx's Prescriptions: New cefpodoxime 200 mg tablet 200 mg PO BID 14 Days Qty: 28 0RF Rx Instructions: must administer with a meal/food sulfamethoxazole-trimethoprim [Bactrim DS] 800-160 mg tablet 1 tab PO BID 14 Days Qty: 28 0RF Continued Jardiance 10 mg tablet 10 mg PO DAILY insulin lispro [Humalog KwikPen Insulin] 100 unit/mL insulin pen 12 unit SUBCUT QMEALS Patient Comments: INJECT 12 UNITS SUBCUTANEOUSLY DIRECTED WITH MEALS (DME) Depend [employer] For [employer] Lrg Misc See Rx Instructions .Route Qty: 100 11RF Rx Instructions: Depends pull up large magnesium oxide [MagOx] 400 MG tablet 400 mg PO DAILY Qty: 30 0RF omeprazole 20 MG capsule,delayed release(DR/EC) 20 mg PO DAILY Qty: 30 0RF metformin 500 mg tablet 500 mg PO BID atorvastatin 80 mg tablet 80 mg PO DAILY ciclopirox 0.77 % cream 1 applic TOPICAL PRN Patient Comments: APPLY TO AFFECTED AND SURROUNDING AREAS OF SKIN TOPICALLY TWO TIMES A DAY IN THE MORNING AND EVENING insulin glargine [Lantus Solostar U-100 Insulin] 100 unit/mL (3 mL) Insulin Pen 50 unit subcut HS Patient Comments: takes 50 units per patient cyanocobalamin (vitamin B-12) 1,000 mcg tablet 1,000 mcg PO DAILY Patient Comments: TAKE ONE TABLET BY MOUTH EVERY DAY metoprolol succinate 50 mg Tablet Extended Release 24 Hr 150 mg PO DAILY Qty: 90 0RF diltiazem HCl 120 mg Capsule,Extended Release 24hr 120 mg PO DAILY Qty: 90 0RF Xarelto 15 mg Tablet 15 mg PO DAILY@1700 Qty: 90 0RF cefpodoxime 200 mg tablet 200 mg PO BID Qty: 10 0RF Rx Instructions: must administer with a meal/food aspirin [Children's Aspirin] 81 mg Tablet,Chewable 81 mg PO DAILY Qty: 0 0RF nystatin 100,000 unit/gram powder 1 applic topical BID Qty: 60 0RF Held lisinopril 10 mg Tablet 10 mg PO DAILY Qty: 90 0RF Hold Instructions: Resume on 07/18/24. Hold while on Bactrim Discharge Instructions Instructions: Urinary Tract Infection, Adult ED Additional Instructions: At this time you have evidence of a recurrence of your urinary tract infection. I suspect that this is the cause for the blood in your urine. Because of your previous culture results we will start you on antibiotics that would cover what you are last infected with. These 2 antibiotics have been sent to your pharmacy on file. There is a chance there might be a new bacteria that is the cause of your symptoms. When the culture results return, please make sure your family doctor follows up closely with these to titrate your medication. While on the Bactrim again, please stop taking your lisinopril as these can interact together and cause kidney damage. If you notice any worsening of your symptoms, or any new symptoms such as vomiting, diarrhea, fever, chills, shortness of breath, chest pain, numbness, weakness, or fainting , please return immediately to the emergency department for reevaluation. Please follow up with your primary care provider as soon as possible for reassessment and reevaluation. As always, it was a pleasure participating in your medical care today. Referrals: Dean Camilo [Primary Care Provider] - [facility] General Date/Time Provider Initiated Documentation: 07/04/24 02:52 . [facility] Narrative: This is a 73-year-old female with a past medical history of type 2 diabetes, GERD, previous TIA and stroke, atrial fibrillation on Eliquis, congestive heart failure, high cholesterol, chronic indwelling Barber catheter, recently having a UTI a few weeks ago and just finishing a prescription of Bactrim and cefpodoxime about 1 week ago, presents today for evaluation of hematuria. Patient states that today she noticed some blood in her Barber bag. She suspects that is because she has been drinking that cheap shit soda and that this is caused the bleeding. She admits to some mild low back pain. She denies any recent falls. She denies any fever or chills. No headache or chest pain or shortness of breath. No other complaints at this time. Related Data Home Medications ?Medication ?Instructions ?Recorded ?Confirmed magnesium oxide 400 mg (241.3 mg 400 mg PO DAILY #30 tabs 08/02/21 07/04/24 magnesium) tablet (MagOx) omeprazole 20 mg capsule,delayed 20 mg PO DAILY #30 caps 08/02/21 07/04/24 release empagliflozin 10 mg tablet 10 mg PO DAILY 10/16/21 07/04/24 (Jardiance) insulin lispro 100 unit/mL 12 unit subcut QMEALS 12/17/21 07/04/24 subcutaneous pen (Humalog KwikPen (U-100) Insulin) diaper,brief,adult,disposable #100 ea 09/30/22 05/26/24 (Depend [employer] Large) aspirin 81 mg chewable tablet 81 mg PO DAILY #0 tabs 12/31/22 07/04/24 (Children's Aspirin) nystatin 100,000 unit/gram topical 1 applic topical BID #60 grams 05/12/23 07/04/24 powder atorvastatin 80 mg tablet 80 mg PO DAILY 02/25/24 07/04/24 ciclopirox 0.77 % topical cream 1 applic topical PRN 02/25/24 07/04/24 metformin 500 mg tablet 500 mg PO BID 02/25/24 07/04/24 insulin glargine 100 unit/mL (3 50 unit subcut HS 04/14/24 07/04/24 mL) subcutaneous pen (Lantus Solostar U-100 Insulin) cyanocobalamin (vitamin B-12) 1,000 mcg PO DAILY 04/15/24 07/04/24 1,000 mcg tablet diltiazem HCl 120 mg 120 mg PO DAILY #90 caps 04/16/24 07/04/24 capsule,extended release 24 hr lisinopril 10 mg tablet 10 mg PO DAILY #90 tabs 04/16/24 07/04/24 metoprolol succinate 50 mg 150 mg (3 x 50 mg) PO DAILY #90 04/16/24 07/04/24 tablet,extended release 24 hr tabs rivaroxaban 15 mg tablet (Xarelto) 15 mg PO DAILY@1700 #90 tabs 04/16/24 07/04/24 cefpodoxime 200 mg tablet 200 mg PO BID #10 tabs 05/28/24 07/04/24 cefpodoxime 200 mg tablet 200 mg PO BID 14 days #28 tabs 07/04/24 sulfamethoxazole 800 1 tab PO BID 14 days #28 tabs 07/04/24 mg-trimethoprim 160 mg tablet (Bactrim DS) Previous Rx's ?Medication ?Instructions ?Recorded magnesium oxide 400 mg (241.3 mg 400 mg PO DAILY #30 tabs 08/02/21 magnesium) tablet (MagOx) omeprazole 20 mg capsule,delayed 20 mg PO DAILY #30 caps 08/02/21 release diaper,brief,adult,disposable #100 ea 09/30/22 ([employer] Large) aspirin 81 mg chewable tablet 81 mg PO DAILY #0 tabs 12/31/22 (Children's Aspirin) nystatin 100,000 unit/gram topical 1 applic topical BID #60 grams 05/12/23 powder diltiazem HCl 120 mg 120 mg PO DAILY #90 caps 04/16/24 capsule,extended release 24 hr lisinopril 10 mg tablet 10 mg PO DAILY #90 tabs 04/16/24 metoprolol succinate 50 mg 150 mg (3 x 50 mg) PO DAILY #90 04/16/24 tablet,extended release 24 hr tabs rivaroxaban 15 mg tablet (Xarelto) 15 mg PO DAILY@1700 #90 tabs 04/16/24 cefpodoxime 200 mg tablet 200 mg PO BID #10 tabs 05/28/24 cefpodoxime 200 mg tablet 200 mg PO BID 14 days #28 tabs 07/04/24 sulfamethoxazole 800 1 tab PO BID 14 days #28 tabs 07/04/24 mg-trimethoprim 160 mg tablet (Bactrim DS) Allergies Allergy/AdvReac Type Severity Reaction Status Date / Time trazodone AdvReac Intermediate NIGHTMARES Verified 07/04/24 02:55 General Stated Complaint: Abd Prob ARGENIS: 3 Exam Narrative Exam Narrative: 1.Const: Well-nourished, Well-developed, appearing stated age 2.Eyes: PERRL, no conjunctival injection, and symmetrical lids. 3.ENT: Atraumatic external nose and ears. Moist MM. Neck: Symmetric, trachea midline, No thyromegaly. 4.CVS: +S1/S2, Peripheral pulses 2+ and equal in all extremities. Brisk capillary refill in all extremities. 5.RESP: Unlabored respiratory effort. Clear to auscultation bilaterally. No wheezes rales or rhonchi 6.GI: Soft, Nontender/Nondistended, No hepatosplenomegaly. No guarding or rebound. Barber catheter in place. 7.MSK: Normocephalic/Atraumatic, Extremities w/o deformity or ttp No cyanosis or clubbing, Normal movement of all extremities. No midline cervical thoracic or lumbar spine tenderness. Mild pain on palpation by the sacroiliac joints. No bruising. 8.Skin: Warm, Dry. No rashes or lesions. 9.Neuro: fruit harvester II-XII grossly intact. Sensation grossly intact, no focal neurologic deficits. 10.Psych: (AAO) x3. Appropriate mood and affect Course Vital Signs Vital signs: Vital Signs Temperature 36.7 C 07/04/24 02:47 Pulse 107 H 07/04/24 02:47 Respiratory Rate 17 07/04/24 02:47 Blood Pressure 138/98 H 07/04/24 02:47 Pulse Oximetry 97 07/04/24 02:47 Temperature 36.7 C 07/04/24 02:47 Temperature Source Temporal Artery Scan 07/04/24 02:47 Pulse 107 H 07/04/24 02:47 Respiratory Rate 17 07/04/24 02:47 Blood Pressure 138/98 H 07/04/24 02:47 Pulse Oximetry 97 07/04/24 02:47 Oxygen Delivery Method Room Air 07/04/24 02:47 Oxygen Flow Rate 0 07/04/24 02:47 Pain Level 7 07/04/24 02:47 Lab/Test Results Lab/Test Results: 07/04/24 03:10 Urine - Reflex from Ua Urine Culture - Pending Laboratory Tests Range/Units 07/04/24 07/04/24 03:02 03:10 WBC (4.4-10.8) 10^3/uL 6.68 RBC (3.93-5.22) 10^6/uL 4.84 Hgb (11.2-15.7) g/dL 10.8 L Hct (36.0-46.0) % 38.1 MCV (80-95) fL 79 L MCH (27.0-33.0) pg 22.3 L MCHC (32.0-36.0) % 28.3 L RDW (11.7-14.6) % 19.5 H Plt Count (130-400) 10^3/uL 581 H MPV (8.0-11.0) fL 9.9 Immature Gran % % 0.6 Neutrophils % % 59.6 Lymphocytes % % 23.7 Monocytes % % 12.4 Eosinophils % % 2.7 Basophils % % 1.0 Nucleated RBC % (0.0-0.3) % 0.0 Absolute Neutrophils (1.2-6.7) 10^3/uL 3.98 Absolute Lymphocytes (1.2-3.4) 10^3/uL 1.58 Absolute Monocytes (0.1-0.8) 10^3/uL 0.83 H Absolute Eosinophils (0.0-0.7) 10^3/uL 0.18 Absolute Basophils (0.0-0.2) 10^3/uL 0.07 PT (9.1-11.1) sec 12.8 H INR (0.9-1.1) 1.3 H APTT (20.6-30.2) sec 29.2 VBG Lactate (0.6-1.4) mmol/L 2.5 H* Sodium (136-145) mmol/L 139 Potassium (3.5-5.1) mmol/L 4.6 Chloride (98-107) mmol/L 102 Carbon Dioxide (21.0-32.0) mmol/L 28.6 Anion Gap (3-11) mmol/L 8.4 BUN (7-18) mg/dL 27 H Creatinine (0.55-1.02) mg/dL 1.1 H Est GFR (CKD-EPI 2020) (mL/min/1.73m2) 52.08 Glucose (74-106) mg/dL 287 H Calcium (8.5-10.1) mg/dL 9.5 Total Bilirubin (0.2-1.0) mg/dL 0.35 AST (15-37) U/L 12 L ALT (14-59) U/L 15 Alkaline Phosphatase (46-116) U/L 134 H Total Protein (6.4-8.2) g/dL 7.6 Albumin (3.4-5.0) g/dL 3.1 L Urine Color (Yellow) Brown Urine Clarity (Clear) Cloudy Urine pH (5-8) 6.0 Ur Specific [place] (1.005-1.025) 1.015 Urine Protein (Neg-Trace) mg/dL 30 H Urine Ketones (Negative) mg/dL Negative Urine Blood (Negative) Large H Urine Nitrite (Negative) Positive H Urine Bilirubin (Negative) Negative Urine Urobilinogen (Up to 0.2) mg/dL 0.2 Ur Leukocyte Esterase (Negative) Trace H Urine RBC (0-2) HPF 20-50 H Urine WBC (0-5) HPF 10-20 H Ur Epithelial Cells (Negative) HPF Few Urine Crystals (Negative) HPF Negative Urine Bacteria (Negative) HPF Moderate Urine Casts (Negative) LPF Negative Urine Mucus (Negative) Moderate Ur Culture Indicated? Yes Urine Glucose (Negative) mg/dL 500 H Medical Decision Making This is a 73-year-old female with a past medical history of type 2 diabetes, GERD, previous TIA and stroke, atrial fibrillation on Eliquis, congestive heart failure, high cholesterol, chronic indwelling Barber catheter, recently having a UTI a few weeks ago and just finishing a prescription of Bactrim and cefpodoxime about 1 week ago for Staph aureus and Pseudomonas urine infection, presents today for evaluation of hematuria. Patient states that today she noticed some blood in her Barber bag. She suspects that is because she has been drinking that cheap shit soda and that this is caused the bleeding. She admits to some mild low back pain. She denies any recent falls. She denies any fever or chills. No headache or chest pain or shortness of breath. No other complaints at this time. Exam demonstrates an place Barber catheter with mild hematuria and cloudiness noted. She has mild pain over the posterior sacroiliac joints, but no flank or CVA tenderness. No midline spinal tenderness. Differential includes recurrence of UTI, iatrogenic hematuria from her Eliquis, less likely bony etiology from an acute component. Will evaluate for these, monitor closely and reassess. 5:11 AM Laboratory workup shows no white count, bandemia, or left shift. Platelet count is slightly high at 581 however she appears to be chronically elevated. Electrolytes normal, renal function stable. Creatinine 1.1. Urinalysis shows large blood, positive nitrates, 20-50 RBCs with 10-20 WBCs. Concern for potential recurrence of the UTI with positive nitrates. She did have a negative urinalysis with no nitrites on one of her more recent visits. CT scan shows some old chronic compression deformities of L4, with evidence of an acute component at L3, but no other abnormalities. Patient's pain is well-controlled. Will restart the patient on cefpodoxime and Bactrim. Recommend holding her lisinopril until her Bactrim course is completed. We did give 2 g of ceftriaxone here as well as the first dose of Bactrim. Patient will be discharged home. Recommend close follow-up with her PCP for further monitoring of culture results and potential antibiotic titration. No large clots or evidence of obstruction at this time from the hematuria. We did replace a Barber catheter. Patient will be discharged home. Discussed red flags which to return. I have extensively reviewed the treatment plan and discharge instructions with the patient. I have addressed all patient concerns at this time. The patient was made aware of what symptoms to monitor for that would warrant a return to the emergency department. Discussed the plan with the patient, they demonstrate verbal understanding and agreement with our assessment and plan at this time. The documentation in this chart was dictated using [employer] dictation software. Please excuse any dictation errors. Tubes, catheters and devices: Suprapubic cystostomy catheter. Evaluation of the urinary bladder is limited due to its underdistended state and beam hardening artifact, grossly unremarkable. Liver: Normal. No mass. Gallbladder and biliary ducts: Normal. No calcified stones. No ductal dilation. Pancreas: Unremarkable. Spleen: Normal. Adrenal glands: Normal. No mass. Kidneys and ureters: Right renal cyst. Kidneys otherwise unremarkable. Stomach and bowel: Unremarkable. No bowel wall thickening or intestinal obstruction. Appendix: Normal appendix. Intraperitoneal space: Unremarkable. No pneumoperitoneum. No abscess. Vasculature: Unremarkable. Lymph nodes: Unremarkable. Urinary bladder: See Tubes, catheters and devices finding. Reproductive: Unremarkable as visualized. Bones/joints: Right hip prosthesis with associated beam hardening artifact. Multilevel chronic vertebral body compression fracture deformities. Compression fracture deformities of L3 and L4 are age indeterminate, potentially acute/subacute. L 4 vertebral body fracture is not significantly changed compared to prior study from 05/26/2024; however, the L3 vertebral body compression fracture is new since then. Soft tissues: Unremarkable. IMPRESSION: Compression fracture deformities of L3 and L4 are age indeterminate, potentially acute/subacute. L 4 vertebral body fracture is not significantly changed compared to prior study from 05/26/2024; however, the L3 vertebral body compression fracture is new since then. Thank you for allowing us to participate in the care of your patient. Dictated and Authenticated by: Ruben Boles MD 07/04/2024 4:06 AM Eastern Time ([place] & [place]) Quality:SDOH Health Related Social Needs: No Data to Display PFSH All Active Problems (Updated 07/04/24 @ 04:56 by Cullen Ponce DO) Hematuria (Acute) Recurrent UTI (Acute) (HFpEF) heart failure with preserved ejection fraction (Acute) Hypomagnesemia (Acute) Acute UTI (Acute) Neuropathy due to type 2 diabetes mellitus (Acute) Onychomycosis (Acute) Fall (Acute) Syncope (Chronic) Diabetic hyperosmolar non-ketotic state (Acute) AMS (altered mental status) (Acute) Acute UTI (Acute) Acute hyperglycemia (Acute) Full code status (Acute) Advance care planning (Acute) Brain TIA (Acute) Vitamin B12 deficiency (Acute) CVA (cerebral vascular accident) (Chronic) Impaired instrumental activities of daily living (Acute) DNR (do not resuscitate) (Acute) Loneliness (Acute) Chronic kidney disease (CKD) (Chronic) Venous stasis dermatitis (Acute) Decreased activities of daily living (ADL) (Acute) Need for home health care (Acute) Nephrolithiasis (Chronic) Sacral decubitus ulcer, stage II (Acute) Wound of right lower extremity (Acute) Hyperglycemia (Acute) Trochanteric bursitis, right hip (Acute) Right ankle sprain (Acute) Hip pain, right (Acute) GI bleed (Acute) Fracture, lumbar vertebra, compression (Acute) PSVT (paroxysmal supraventricular tachycardia) (Acute) Poorly controlled diabetes mellitus (Chronic) Transient neurologic deficit (Acute) Fungal dermatitis (Acute) Atrial flutter (Acute) Vaginal bleeding, abnormal (Acute) Atrial fibrillation and flutter (Chronic) Diabetes mellitus type 2 in obese (Chronic) Fracture of femoral neck, right (Acute) Retention, urine (Chronic) Medical History (Updated 07/04/24 @ 04:56 by Cullen Ponce DO) Palliative care patient Beth infection Urinary retention (03/31/16) Infestation by bed bug Hx of malignant melanoma GERD (gastroesophageal reflux disease) H/O menorrhagia Supraventricular tachycardia History of traumatic fracture of hip Unsteady gait Hard of hearing Vision changes Anemia 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 Palliative care encounter Pulmonary hypertension Multiple rib fractures involving four or more ribs Hypertension S/P right hip fracture TIA (transient ischemic attack) Hyperlipidemia Atrial fibrillation CHF (congestive heart failure) LVEF 50-55%, diastolic dysfunction Diabetes Cataracts, bilateral Surgical History History of bilateral cataract extraction History of suprapubic catheter Status post right hip replacement Family History Other Diabetes Heart disease Hyperlipidemia Hypertension Stroke Social History Smoking/Tobacco Use Status: Former Tobacco Use Smoking risk assessment performed?: Yes Alcohol Intake: never Drug use: Never Substance use type: does not use Household members: none Housing: apartment Do you feel safe at home: Yes Do you feel safe in your relationship?: Yes Additional Social history: Lives alone[address] Does not drive.
== END 2024-07-04 06:45 | disposition home or self-care (01) ==
PROVIDERS: Emergency Provider Student in an Organized Health Care Education/Training Program; PCP Physician Assistant
DX: R31.9 Hematuria, unspecified (principal); N39.0 Urinary tract infection, site not specified; E11.9 Type 2 diabetes mellitus without complications; K21.9 Gastro-esophageal reflux disease without esophagitis; Z86.79 Personal history of other diseases of the circulatory system; Z79.01 Long term (current) use of anticoagulants; I10 Essential (primary) hypertension; M54.50 Low back pain, unspecified
CPT/HCPCS: 36415; 80053; 99284; 74176; 81003; 81015; 83605; 85025; 85610; 85730; 87086; J0696

== ENCOUNTER 2024-09-04 15:42 | Emergency (ER) | payer MEDICARE, MEDICAID, SELFPAY ==
[2024-09-04 15:44] VITALS: BP 132/64; PULSE 88; RESP 18; TEMP 36.5; O2SAT 96
--- NOTE | 2024-09-04 16:15 | DI.RAD_ITS ---
Exam(s) XR KNEE RT 3V AP,LAT,NADEGE EXAM: XR KNEE RT 3V AP,LAT,NADEGE CLINICAL HISTORY: pain. TECHNIQUE: 2D digital imaging was performed. Three views. COMPARISON: CR XR KNEE RT 3V AP,LAT,NADEGE from 01/14/2021 FINDINGS: BONES: No acute fracture is present. No bony destructive lesion is seen. Patellar enthesophytes. Th e bones appear osteopenic JOINTS: The knee is normally aligned. Minimal periarticular spurring. No joint effusion is seen. SOFT TISSUE: Medial soft tissue swelling. Severe vascular calcifications. IMPRESSION: Medial soft tissue swelling. No acute bony abnormality DATA REPOSITORY: RADIATION DOSE DELIVERED:
--- NOTE | 2024-09-04 16:20 | ED.GENADUL_ITS ---
Discharge Plan Disposition Patient Disposition: Home Discharge Details Clinical Impression: Right knee sprain Primary Care Provider: Dean Camilo ED Provider: Andrade Jacome Home Meds and New Rx's Prescriptions: No Action Jardiance 10 mg tablet 10 mg PO DAILY insulin lispro [Humalog KwikPen Insulin] 100 unit/mL insulin pen 12 unit SUBCUT QMEALS Patient Comments: INJECT 12 UNITS SUBCUTANEOUSLY DIRECTED WITH MEALS (DME) Depend Underwear For Women Lrg Misc See Rx Instructions .Route Qty: 100 11RF Rx Instructions: Depends pull up large magnesium oxide [MagOx] 400 MG tablet 400 mg PO DAILY Qty: 30 0RF omeprazole 20 MG capsule,delayed release(DR/EC) 20 mg PO DAILY Qty: 30 0RF metformin 500 mg tablet 500 mg PO BID atorvastatin 80 mg tablet 80 mg PO DAILY ciclopirox 0.77 % cream 1 applic TOPICAL PRN Patient Comments: APPLY TO AFFECTED AND SURROUNDING AREAS OF SKIN TOPICALLY TWO TIMES A DAY IN THE MORNING AND EVENING insulin glargine [Lantus Solostar U-100 Insulin] 100 unit/mL (3 mL) Insulin Pen 50 unit subcut HS Patient Comments: takes 50 units per patient cyanocobalamin (vitamin B-12) 1,000 mcg tablet 1,000 mcg PO DAILY Patient Comments: TAKE ONE TABLET BY MOUTH EVERY DAY metoprolol succinate 50 mg Tablet Extended Release 24 Hr 150 mg PO DAILY Qty: 90 0RF lisinopril 10 mg Tablet 10 mg PO DAILY Qty: 90 0RF diltiazem HCl 120 mg Capsule,Extended Release 24hr 120 mg PO DAILY Qty: 90 0RF Xarelto 15 mg Tablet 15 mg PO DAILY@1700 Qty: 90 0RF cefpodoxime 200 mg tablet 200 mg PO BID Qty: 10 0RF Rx Instructions: must administer with a meal/food aspirin [Children's Aspirin] 81 mg Tablet,Chewable 81 mg PO DAILY Qty: 0 0RF nystatin 100,000 unit/gram powder 1 applic topical BID Qty: 60 0RF Discharge Instructions Instructions: Knee Sprain ED Additional Instructions: Continue to use hinged knee brace to help with stability during ambulation but you may remove this during sleeping Please follow-up with your primary care provider for reassessment if not improving in the next 1 to 2 weeks Feel free to return to the emergency department for any new or significant worsening of symptoms Take your medications as normally prescribed Referrals: Dean Camilo [Primary Care Provider] - 1 week (if not improving) Discharge Data Discharge Date/Time-TO BE ENTERED AT DEPARTURE: 09/04/24 18:36 HPI General Mode of arrival: EMS . Date/Time Provider Initiated Documentation: 09/04/24 15:50 . Limitations to Documentation: no limitations . Information obtained by: patient and RN notes reviewed . History of Present Illness 74 year old F presents to the emergency department with the chief complaint of Right knee injury, described as moderate, Quality is described as sharp, Patient started experiencing this hour(s) (5) and it has been constant. Immobilization improves symptom(s), Movement worsens symptoms . Patient notes no other symptoms.. Patient did receive the following treatments prior to arrival, none Related Data Home Medications ?Medication ?Instructions ?Recorded ?Confirmed magnesium oxide 400 mg (241.3 mg 400 mg PO DAILY #30 tabs 08/02/21 09/04/24 magnesium) tablet (MagOx) omeprazole 20 mg capsule,delayed 20 mg PO DAILY #30 caps 08/02/21 09/04/24 release empagliflozin 10 mg tablet 10 mg PO DAILY 10/16/21 09/04/24 (Jardiance) insulin lispro 100 unit/mL 12 unit subcut QMEALS 12/17/21 09/04/24 subcutaneous pen (Humalog KwikPen (U-100) Insulin) diaper,brief,adult,disposable #100 ea 09/30/22 09/04/24 (Depend Underwear For Women Large) aspirin 81 mg chewable tablet 81 mg PO DAILY #0 tabs 12/31/22 09/04/24 (Children's Aspirin) nystatin 100,000 unit/gram topical 1 applic topical BID #60 grams 05/12/23 09/04/24 powder atorvastatin 80 mg tablet 80 mg PO DAILY 02/25/24 09/04/24 ciclopirox 0.77 % topical cream 1 applic topical PRN 02/25/24 09/04/24 metformin 500 mg tablet 500 mg PO BID 02/25/24 09/04/24 insulin glargine 100 unit/mL (3 50 unit subcut HS 04/14/24 09/04/24 mL) subcutaneous pen (Lantus Solostar U-100 Insulin) cyanocobalamin (vitamin B-12) 1,000 mcg PO DAILY 04/15/24 09/04/24 1,000 mcg tablet diltiazem HCl 120 mg 120 mg PO DAILY #90 caps 04/16/24 09/04/24 capsule,extended release 24 hr lisinopril 10 mg tablet 10 mg PO DAILY #90 tabs 04/16/24 09/04/24 metoprolol succinate 50 mg 150 mg (3 x 50 mg) PO DAILY #90 04/16/24 09/04/24 tablet,extended release 24 hr tabs rivaroxaban 15 mg tablet (Xarelto) 15 mg PO DAILY@1700 #90 tabs 04/16/24 09/04/24 cefpodoxime 200 mg tablet 200 mg PO BID #10 tabs 05/28/24 09/04/24 Previous Rx's ?Medication ?Instructions ?Recorded magnesium oxide 400 mg (241.3 mg 400 mg PO DAILY #30 tabs 08/02/21 magnesium) tablet (MagOx) omeprazole 20 mg capsule,delayed 20 mg PO DAILY #30 caps 08/02/21 release diaper,brief,adult,disposable #100 ea 09/30/22 (Depend [employer]wear For Women Large) aspirin 81 mg chewable tablet 81 mg PO DAILY #0 tabs 12/31/22 (Children's Aspirin) nystatin 100,000 unit/gram topical 1 applic topical BID #60 grams 05/12/23 powder diltiazem HCl 120 mg 120 mg PO DAILY #90 caps 04/16/24 capsule,extended release 24 hr lisinopril 10 mg tablet 10 mg PO DAILY #90 tabs 04/16/24 metoprolol succinate 50 mg 150 mg (3 x 50 mg) PO DAILY #90 04/16/24 tablet,extended release 24 hr tabs rivaroxaban 15 mg tablet (Xarelto) 15 mg PO DAILY@1700 #90 tabs 04/16/24 cefpodoxime 200 mg tablet 200 mg PO BID #10 tabs 05/28/24 Allergies Allergy/AdvReac Type Severity Reaction Status Date / Time trazodone AdvReac Intermediate NIGHTMARES Verified 09/04/24 16:51 General Stated Complaint: Orthopedic ARGENIS: 4 Review of Systems Constitutional Constitutional: Denies fever(s) Cardiovascular Cardiovascular: Denies syncope Musculoskeletal Musculoskeletal: Reports as per HPI, Reports arthralgias, Denies joint swelling, Denies limited range of motion, Denies numbness and Denies tingling Neurologic Neurologic: Denies syncope, Denies numbness and Denies tingling Exam Const General: cooperative, no acute distress and not ill appearing Orientation: alert, awake and oriented x3 HENMT Mouth: moist mucous membranes Resp Effort & Inspection: normal respiratory effort, able to speak in complete sentences and no respiratory distress Cardio Rate: regular rate Rhythm: regular rhythm Pulses: normal peripheral pulses Skin General skin exam: no rashes or lesions noted Neuro General: patient alert, patient awake, patient oriented x3 and moves all extremities Sensory Exam: no sensory deficits noted Extrem Right lower extremity: knee Details: normal to inspection, normal ROM and knee ligament exam normal; no tenderness, no swelling, no abrasions, no ecchymosis and no crepitus Course Vital Signs Vital signs: Vital Signs Temperature 36.5 C 09/04/24 15:44 Pulse 88 09/04/24 15:44 Respiratory Rate 18 09/04/24 15:44 Blood Pressure 132/64 09/04/24 15:44 Pulse Oximetry 96 09/04/24 15:44 Temperature 36.5 C 09/04/24 15:44 Temperature Source Oral 09/04/24 15:44 Pulse 88 09/04/24 15:44 Respiratory Rate 18 09/04/24 15:44 Blood Pressure 132/64 09/04/24 15:44 Pulse Oximetry 96 09/04/24 15:44 Oxygen Delivery Method Room Air 09/04/24 15:44 Oxygen Flow Rate 0 09/04/24 15:44 Pain Level 4 09/04/24 15:44 Medical Decision Making Patient presenting to the emergency department for chief complaint of right knee pain. Patient normally uses a walker to get around the house and while she was up walking around 11 AM this morning her right knee buckled. She denies any fall or other injury/trauma but just states since the event her right knee is continued to hurt causing it to be difficult to move around the home. Patient denies all of the symptoms. Physical exam is unremarkable showing no laxity or pain no tenderness no signs of trauma or injury and otherwise benign focal exam. Given patient's age and discomfort will perform radiological imaging. Suspect soft tissue or ligamentous strain/sprain. Radiological imaging reviewed along with radiologist interpretation that shows soft tissue swelling otherwise negative for fracture or dislocation. Patient was able to weight-bear with use of cane which is normal for her and did state some improvement with knee brace. Will discharge patient home to follow-up with primary care provider for reassessment and further imaging as needed if not improving. After discussion of diagnosis and plan of care patient has no further needs, questions, or concerns and states clear understanding to return to the emergency department for any worsening symptoms. This documentation was generated using [employer]elligent [employer] dictation system, please disregard any oddities of phrase or misspellings. Quality:SDOH Health Related Social Needs: Health related social needs housing instability, house d, with risk of homelessness (Z59.811), inadequate housing (Z59.1), food insecurity (Z59.41), tr ansportation insecurity (Z59.82), problems related to housing/economic circumstances (Z59.89), problems with daily activities (Z73.9), feeling lonely/isolated (Z60.8) PFSH All Active Problems (Updated 09/04/24 @ 17:46 by Andrade Jacome NP) Right knee sprain (Acute) (HFpEF) heart failure with preserved ejection fraction (Acute) Hypomagnesemia (Acute) Acute UTI (Acute) Neuropathy due to type 2 diabetes mellitus (Acute) Onychomycosis (Acute) Fall (Acute) Syncope (Chronic) Diabetic hyperosmolar non-ketotic state (Acute) AMS (altered mental status) (Acute) Acute UTI (Acute) Acute hyperglycemia (Acute) Full code status (Acute) Advance care planning (Acute) Brain TIA (Acute) Vitamin B12 deficiency (Acute) CVA (cerebral vascular accident) (Chronic) Impaired instrumental activities of daily living (Acute) DNR (do not resuscitate) (Acute) Loneliness (Acute) Chronic kidney disease (CKD) (Chronic) Venous stasis dermatitis (Acute) Decreased activities of daily living (ADL) (Acute) Need for home health care (Acute) Nephrolithiasis (Chronic) Sacral decubitus ulcer, stage II (Acute) Wound of right lower extremity (Acute) Hyperglycemia (Acute) Trochanteric bursitis, right hip (Acute) Right ankle sprain (Acute) Hip pain, right (Acute) GI bleed (Acute) Fracture, lumbar vertebra, compression (Acute) PSVT (paroxysmal supraventricular tachycardia) (Acute) Poorly controlled diabetes mellitus (Chronic) Transient neurologic deficit (Acute) Fungal dermatitis (Acute) Atrial flutter (Acute) Vaginal bleeding, abnormal (Acute) Atrial fibrillation and flutter (Chronic) Diabetes mellitus type 2 in obese (Chronic) Fracture of femoral neck, right (Acute) Retention, urine (Chronic) Medical History Palliative care patient Beth infection Urinary retention (03/31/16) Infestation by bed bug Hx of malignant melanoma GERD (gastroesophageal reflux disease) H/O menorrhagia Supraventricular tachycardia History of traumatic fracture of hip Unsteady gait Hard of hearing Vision changes Anemia 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 Palliative care encounter Pulmonary hypertension Multiple rib fractures involving four or more ribs Hypertension S/P right hip fracture TIA (transient ischemic attack) Hyperlipidemia Atrial fibrillation CHF (congestive heart failure) LVEF 50-55%, diastolic dysfunction Diabetes Cataracts, bilateral Surgical History History of bilateral cataract extraction History of suprapubic catheter Status post right hip replacement Family History Other Diabetes Heart disease Hyperlipidemia Hypertension Stroke Social History Smoking/Tobacco Use Status: Former Tobacco Use Smoking risk assessment performed?: Yes Alcohol Intake: never Drug use: Never Substance use type: does not use Household members: none Housing: apartment Do you feel safe at home: Yes Do you feel safe in your relationship?: Yes Additional Social history: Lives alone[address] Does not drive.
--- NOTE | 2024-09-04 17:39 | DI.VRAD_ITS ---
PROCEDURE INFORMATION: Exam: XR Right Knee Exam date and time: 09/04/2024 4:30 PM Age: 74 years old Clinical indication: Other: Pain TECHNIQUE: Imaging protocol: Radiologic exam of the right knee. Views: 3 views. COMPARISON: CR XR KNEE RT 3V AP,LAT,NADEGE 01/14/2021 4:04 PM FINDINGS: Bones/joints: Three views of the right knee reveal no acute fracture or dislocation. No knee effusion is seen. There is an enthesophyte arising from the upper pole of the patella. Soft tissues: There is soft tissue swelling along the medial aspect of the knee. Vasculature: There is extensive atherosclerotic calcification in the distal superficial femoral artery and popliteal artery. IMPRESSION: Soft tissue swelling along the medial aspect of the knee. No acute fracture, dislocation, or effusion is seen. Dictated and Authenticated by: Chano Gilmore MD. Orderin Naa Zafar MD
[2024-09-04] MEDS: Acetaminophen 500 MG TAB PO (17:45)
[2024-09-04 18:21] VITALS: BP 132/64; PULSE 88; RESP 18; TEMP 36.5; O2SAT 96
== END 2024-09-04 18:36 | disposition home or self-care (01) ==
PROVIDERS: Emergency Provider Nurse Practitioner Family; PCP Physician Assistant
DX: S83.91XA Sprain of unspecified site of right knee, initial encounter (principal); X58.XXXA Exposure to other specified factors, initial encounter; Z59.811 Housing instability, housed, with risk of homelessness; Z59.10 Inadequate housing, unspecified; Z59.41 Food insecurity; Z59.82 Transportation insecurity; Z59.89 Other problems related to housing and economic circumstances; Z73.9 Problem related to life management difficulty, unspecified; Z60.8 Other problems related to social environment
CPT/HCPCS: 29505; 73562; 99283

== ENCOUNTER 2024-09-13 09:38 | Emergency (ER) | payer MEDICARE, MEDICAID, SELFPAY ==
[2024-09-13] VITALS (9 sets, daily range): BP systolic 119–169; BP diastolic 73–89; PULSE 80–110; RESP 11–20; TEMP 36.5; O2SAT 97–99
--- NOTE | 2024-09-13 10:31 | ED.GENADUL_ITS ---
Discharge Plan Disposition Patient Disposition: Home Discharge Details Clinical Impression: Food insecurity, Hypomagnesemia Primary Care Provider: Dean Camilo ED Provider: Paola Rajput Home Meds and New Rx's Prescriptions: Continued Jardiance 10 mg tablet 10 mg PO DAILY insulin lispro [Humalog KwikPen Insulin] 100 unit/mL insulin pen 12 unit SUBCUT QMEALS Patient Comments: INJECT 12 UNITS SUBCUTANEOUSLY DIRECTED WITH MEALS (DME) Depend [employer]wear For Women Lrg Misc See Rx Instructions .Route Qty: 100 11RF Rx Instructions: Depends pull up large magnesium oxide [MagOx] 400 MG tablet 400 mg PO DAILY Qty: 30 0RF omeprazole 20 MG capsule,delayed release(DR/EC) 20 mg PO DAILY Qty: 30 0RF metformin 500 mg tablet 500 mg PO BID atorvastatin 80 mg tablet 80 mg PO DAILY ciclopirox 0.77 % cream 1 applic TOPICAL PRN Patient Comments: APPLY TO AFFECTED AND SURROUNDING AREAS OF SKIN TOPICALLY TWO TIMES A DAY IN THE MORNING AND EVENING insulin glargine [Lantus Solostar U-100 Insulin] 100 unit/mL (3 mL) Insulin Pen 50 unit subcut HS Patient Comments: takes 50 units per patient cyanocobalamin (vitamin B-12) 1,000 mcg tablet 1,000 mcg PO DAILY Patient Comments: TAKE ONE TABLET BY MOUTH EVERY DAY metoprolol succinate 50 mg Tablet Extended Release 24 Hr 150 mg PO DAILY Qty: 90 0RF lisinopril 10 mg Tablet 10 mg PO DAILY Qty: 90 0RF diltiazem HCl 120 mg Capsule,Extended Release 24hr 120 mg PO DAILY Qty: 90 0RF Xarelto 15 mg Tablet 15 mg PO DAILY@1700 Qty: 90 0RF cefpodoxime 200 mg tablet 200 mg PO BID Qty: 10 0RF Rx Instructions: must administer with a meal/food aspirin [Children's Aspirin] 81 mg Tablet,Chewable 81 mg PO DAILY Qty: 0 0RF nystatin 100,000 unit/gram powder 1 applic topical BID Qty: 60 0RF Discharge Instructions Instructions: Hypomagnesemia Additional Instructions: Take your magnesium 2 tablets daily Please do not use your insulin if you are choosing not to eat as this will cause your blood sugar to become low Our career placement services counselor has contacted the [place] [facility] to be sure you have enough resources RCT should also be available to bring your for your shopping Please return should develop new or worsening complaints yes thank you Referrals: Dean Camilo [Primary Care Provider] - 2 days Discharge Data Discharge Date/Time-TO BE ENTERED AT DEPARTURE: 09/13/24 13:42 HPI General Date/Time Provider Initiated Documentation: 09/13/24 09:51 . HPI Narrative: 74-year-old female with CHF, UTI, indwelling Barber catheter, diabetes, CKD, atrial flutter on Xarelto, insulin-dependent, and hypertension. Reports low blood glucose this morning. Ran out of food 48 hours ago due to lack of transportation. Took an ambulance here. Has food at home but not interested in it. Unable to go to grocery store for 2 weeks due to lack of RCT assistance. manager client service secured RCT for grocery trip. Counselor on aging will be notified. Given sandwiches and food for tonight and tomorrow, and 2 meals in ED. Will follow up with PCP. Discussed not dosing insulin unless she eats. Return precautions reviewed. Expressed understanding and remained stable. No specific pain complaints or additional concerns. Related Data Home Medications ?Medication ?Instructions ?Recorded ?Confirmed magnesium oxide 400 mg (241.3 mg 400 mg PO DAILY #30 tabs 08/02/21 09/04/24 magnesium) tablet (MagOx) omeprazole 20 mg capsule,delayed 20 mg PO DAILY #30 caps 08/02/21 09/13/24 release empagliflozin 10 mg tablet 10 mg PO DAILY 10/16/21 09/13/24 (Jardiance) insulin lispro 100 unit/mL 12 unit subcut QMEALS 12/17/21 09/04/24 subcutaneous pen (Humalog KwikPen (U-100) Insulin) diaper,brief,adult,disposable #100 ea 09/30/22 09/04/24 (Depend Underwear For Women Large) aspirin 81 mg chewable tablet 81 mg PO DAILY #0 tabs 12/31/22 09/04/24 (Children's Aspirin) nystatin 100,000 unit/gram topical 1 applic topical BID #60 grams 05/12/23 09/04/24 powder atorvastatin 80 mg tablet 80 mg PO DAILY 02/25/24 09/13/24 ciclopirox 0.77 % topical cream 1 applic topical PRN 02/25/24 09/13/24 metformin 500 mg tablet 500 mg PO BID 02/25/24 09/13/24 insulin glargine 100 unit/mL (3 50 unit subcut HS 04/14/24 09/13/24 mL) subcutaneous pen (Lantus Solostar U-100 Insulin) cyanocobalamin (vitamin B-12) 1,000 mcg PO DAILY 04/15/24 09/13/24 1,000 mcg tablet diltiazem HCl 120 mg 120 mg PO DAILY #90 caps 04/16/24 09/13/24 capsule,extended release 24 hr lisinopril 10 mg tablet 10 mg PO DAILY #90 tabs 04/16/24 09/13/24 metoprolol succinate 50 mg 150 mg (3 x 50 mg) PO DAILY #90 04/16/24 09/13/24 tablet,extended release 24 hr tabs rivaroxaban 15 mg tablet (Xarelto) 15 mg PO DAILY@1700 #90 tabs 04/16/24 09/13/24 cefpodoxime 200 mg tablet 200 mg PO BID #10 tabs 05/28/24 09/04/24 Previous Rx's ?Medication ?Instructions ?Recorded magnesium oxide 400 mg (241.3 mg 400 mg PO DAILY #30 tabs 08/02/21 magnesium) tablet (MagOx) omeprazole 20 mg capsule,delayed 20 mg PO DAILY #30 caps 08/02/21 release diaper,brief,adult,disposable #100 ea 09/30/22 (Depend [employer]wear For Women Large) aspirin 81 mg chewable tablet 81 mg PO DAILY #0 tabs 12/31/22 (Children's Aspirin) nystatin 100,000 unit/gram topical 1 applic topical BID #60 grams 05/12/23 powder diltiazem HCl 120 mg 120 mg PO DAILY #90 caps 04/16/24 capsule,extended release 24 hr lisinopril 10 mg tablet 10 mg PO DAILY #90 tabs 04/16/24 metoprolol succinate 50 mg 150 mg (3 x 50 mg) PO DAILY #90 04/16/24 tablet,extended release 24 hr tabs rivaroxaban 15 mg tablet (Xarelto) 15 mg PO DAILY@1700 #90 tabs 04/16/24 cefpodoxime 200 mg tablet 200 mg PO BID #10 tabs 05/28/24 Allergies Allergy/AdvReac Type Severity Reaction Status Date / Time trazodone AdvReac Intermediate NIGHTMARES Verified 09/13/24 10:06 General Stated Complaint: Diabetes ARGENIS: 3 Exam Narrative Exam Narrative: General Appearance: Alert and oriented, no acute distress. Vital signs: Within normal limits. HEENT: Pupils equal, round, reactive to light and accommodation. Respiratory: Within normal limits. Cardiovascular: Regular cardiac rate and rhythm. Gastrointestinal: No rebound or guarding in abdomen. Skin: No visible trauma on skin. Neurological: Ambulatory with steady gait. Other observations: None. Course Vital Signs Vital signs: Vital Signs Temperature 36.5 C 09/13/24 09:40 Pulse 108 H 09/13/24 09:40 Respiratory Rate 17 09/13/24 09:40 Blood Pressure 169/89 H 09/13/24 09:40 Pulse Oximetry 99 09/13/24 09:40 Temperature 36.5 C 09/13/24 10:04 Temperature Source Oral 09/13/24 10:04 Pulse 94 H 09/13/24 10:04 Respiratory Rate 15 09/13/24 10:04 Blood Pressure 162/85 H 09/13/24 10:04 Blood Pressure Position Supine 09/13/24 10:04 Pulse Oximetry 97 09/13/24 10:04 Oxygen Delivery Method Room Air 09/13/24 10:04 Oxygen Flow Rate 0 09/13/24 09:40 Medical Decision Making Initial Assessment: 74-year-old female with history of CHF, UTI, indwelling Barber catheter, diabetes, chronic kidney disease, atrial flutter, on Xarelto, insulin-dependent with hypertension, presents with low blood glucose this morning due to insufficient food intake over the past 48 hours. Denies any specific pain complaints or additional complaints at this time. ED Course: - Patient alert and oriented, not in acute distress, no visible sign of trauma. - Cardiac rate rhythm regular. - No rebound or guarding to abdomen. - Ambulatory with steady gait. - Mild hypomagnesemia at 1.5. - CBC baseline for patient blood sugar 135. - Involved career placement services counselor and secured transportation for trip to grocery store. - Counselor on aging will be notified. - Given sandwiches and food for tonight and tomorrow, and 2 meals in ED. Final Assessment: Patient stable throughout encounter, hypoglycemia likely due to insufficient food intake. Provided food and discussed insulin dosing only if eating. Clinical Impression: - Hypoglycemia Disposition: - Discharge - Follow-Up: Follow-up with PCP Patient Education: Discussed not dosing insulin unless eating. Return precautions reviewed, patient expressed understanding. Quality:SDOH Health Related Social Needs: Health related social needs housing instability, house d, with risk of homelessness (Z59.811), inadequate housing (Z59.1), food insecurity (Z59.41), transportation insecurity (Z59.82), problems related to housing/economic circumstances (Z59.89), problems with daily activities (Z73.9), feeling lonely/isolated (Z60.8) [facility] All Active Problems (Updated 09/13/24 @ 11:52 by KATHLEEN Curry) Hypomagnesemia (Acute) Food insecurity (Acute) Right knee sprain (Acute) (HFpEF) heart failure with preserved ejection fraction (Acute) Hypomagnesemia (Acute) Acute UTI (Acute) Neuropathy due to type 2 diabetes mellitus (Acute) Onychomycosis (Acute) Fall (Acute) Syncope (Chronic) Diabetic hyperosmolar non-ketotic state (Acute) AMS (altered mental status) (Acute) Acute UTI (Acute) Acute hyperglycemia (Acute) Full code status (Acute) Advance care planning (Acute) Brain TIA (Acute) Vitamin B12 deficiency (Acute) CVA (cerebral vascular accident) (Chronic) Impaired instrumental activities of daily living (Acute) DNR (do not resuscitate) (Acute) Loneliness (Acute) Chronic kidney disease (CKD) (Chronic) Venous stasis dermatitis (Acute) Decreased activities of daily living (ADL) (Acute) Need for home health care (Acute) Nephrolithiasis (Chronic) Sacral decubitus ulcer, stage II (Acute) Wound of right lower extremity (Acute) Hyperglycemia (Acute) Trochanteric bursitis, right hip (Acute) Right ankle sprain (Acute) Hip pain, right (Acute) GI bleed (Acute) Fracture, lumbar vertebra, compression (Acute) PSVT (paroxysmal supraventricular tachycardia) (Acute) Poorly controlled diabetes mellitus (Chronic) Transient neurologic deficit (Acute) Fungal dermatitis (Acute) Atrial flutter (Acute) Vaginal bleeding, abnormal (Acute) Atrial fibrillation and flutter (Chronic) Diabetes mellitus type 2 in obese (Chronic) Fracture of femoral neck, right (Acute) Retention, urine (Chronic) Medical History Palliative care patient Beth infection Urinary retention (03/31/16) Infestation by bed bug Hx of malignant melanoma GERD (gastroesophageal reflux disease) H/O menorrhagia Supraventricular tachycardia History of traumatic fracture of hip Unsteady gait Hard of hearing Vision changes Anemia 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 Palliative care encounter Pulmonary hypertension Multiple rib fractures involving four or more ribs Hypertension S/P right hip fracture TIA (transient ischemic attack) Hyperlipidemia Atrial fibrillation CHF (congestive heart failure) LVEF 50-55%, diastolic dysfunction Diabetes Cataracts, bilateral Surgical History History of bilateral cataract extraction History of suprapubic catheter Status post right hip replacement Family History Other Diabetes Heart disease Hyperlipidemia Hypertension Stroke Social History Smoking/Tobacco Use Status: Former Tobacco Use Smoking risk assessment performed?: Yes Alcohol Intake: never Drug use: Never Substance use type: does not use Household members: none Housing: apartment Do you feel safe at home: Yes Do you feel safe in your relationship?: Yes Additional Social history: Lives alone[address] Does not drive.
[2024-09-13 10:43] LABS: Abs Immature Grans 0.03 10^3/uL (0.0-0.06); Absolute Basophil Count 0.07 10^3/uL (0.0-0.2); Absolute Eosinophil Count 0.14 10^3/uL (0.0-0.7); Absolute Lymphocyte Count 1.24 10^3/uL (1.2-3.4); Absolute Monocyte Count 0.79 10^3/uL (0.1-0.8); Absolute Neutrophil Count 7.38 10^3/uL (1.2-6.7); Basophils % 0.7 %; Eosinophils % 1.5 %; HGB 12.2 g/dL (11.2-15.7); Immature Grans % 0.3 %; Lymphocytes % 12.8 %; MCH 21.3 pg (27.0-33.0); MCHC 27.7 % (32.0-36.0); MCV 77 fL (80-95); MPV 9.1 fL (8.0-11.0); Monocytes % 8.2 %; Neutrophils % 76.5 %; Platelet Count 566 10^3/uL (130-400); RBC 5.72 10^6/uL (3.93-5.22); RDW 19.5 % (11.7-14.6); RDW-SD 51.8 fL; WBC 9.65 10^3/uL (4.4-10.8)
[2024-09-13 10:59] LABS: Anisocytosis 1+; Diff Comment RBC Morph Reviewed; Hypochromasia 1+; Microcytosis 1+
[2024-09-13 11:00] LABS: Poikilocytes 2+
[2024-09-13 11:01] LABS: ALT 28 U/L (14-59); AST 26 U/L (15-37); Albumin 3.4 g/dL (3.4-5.0); Alkaline Phosphatase 82 U/L (46-116); Anion Gap 8.9 mmol/L (3-11); BUN 14 mg/dL (7-18); Bilirubin, Total 0.4 mg/dL (0.2-1.0); CO2 26.1 mmol/L (21.0-32.0); CREATININE 1.1 mg/dL (0.55-1.02); Calcium 9.8 mg/dL (8.5-10.1); Chloride 103 mmol/L (98-107); Estimated GFR 52.08 (mL/min/1.73m2); Glucose 139 mg/dL (74-106); Magnesium 1.5 mg/dL (1.8-2.4); Potassium 4.7 mmol/L (3.5-5.1); Sodium 138 mmol/L (136-145); Total Protein 8.2 g/dL (6.4-8.2)
[2024-09-13 11:05] LABS: Hemoglobin A1C 11.2 % (<5.7)
[2024-09-13] MEDS: Magnesium Oxide 400 MG TAB 800 MG PO (11:39)
--- NOTE | 2024-09-13 14:31 | PDOC.CMIN ---
Date of service: 09/13/24 Time of Service: 14:31 Care Management Initial Assmt Advance Directives Advance Directives: Do you have an Advance Directive: N 07/08/22 13:33 AD On File at [facility]: N 07/08/22 13:33 Date Asked 09/13/24 09/13/24 10:00 AD Date Reviewed COLST On File at [facility] Yes 04/29/23 05:38 COLST Date Scanned 04/29/23 04/29/23 05:38 Care Team Visit Care Team Role Provider Type Dean Camilo Primary Care Provider NON-[facility] STAFF PHYSICIAN Maria Fernanda Easley Other Providers TABULATING CLERK Aidee Quigley Other Providers TABULATING CLERK Meenakshi Parrish Other Providers TABULATING CLERK Lili Orona RN Other Providers TABULATING CLERK Isis Kline Other Providers TABULATING CLERK KATHLEEN Curry 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 Social Determinants of Health Screening Will the Patient Participate in the Screening?: Declined to provide PFSH All Active Problems (Updated 09/13/24 @ 11:52 by KATHLEEN Curry) Hypomagnesemia (Acute) Food insecurity (Acute) Right knee sprain (Acute) (HFpEF) heart failure with preserved ejection fraction (Acute) Hypomagnesemia (Acute) Acute UTI (Acute) Neuropathy due to type 2 diabetes mellitus (Acute) Onychomycosis (Acute) Fall (Acute) Syncope (Chronic) Diabetic hyperosmolar non-ketotic state (Acute) AMS (altered mental status) (Acute) Acute UTI (Acute) Acute hyperglycemia (Acute) Full code status (Acute) Advance care planning (Acute) Brain TIA (Acute) Vitamin B12 deficiency (Acute) CVA (cerebral vascular accident) (Chronic) Impaired instrumental activities of daily living (Acute) DNR (do not resuscitate) (Acute) Loneliness (Acute) Chronic kidney disease (CKD) (Chronic) Venous stasis dermatitis (Acute) Decreased activities of daily living (ADL) (Acute) Need for home health care (Acute) Nephrolithiasis (Chronic) Sacral decubitus ulcer, stage II (Acute) Wound of right lower extremity (Acute) Hyperglycemia (Acute) Trochanteric bursitis, right hip (Acute) Right ankle sprain (Acute) Hip pain, right (Acute) GI bleed (Acute) Fracture, lumbar vertebra, compression (Acute) PSVT (paroxysmal supraventricular tachycardia) (Acute) Poorly controlled diabetes mellitus (Chronic) Transient neurologic deficit (Acute) Fungal dermatitis (Acute) Atrial flutter (Acute) Vaginal bleeding, abnormal (Acute) Atrial fibrillation and flutter (Chronic) Diabetes mellitus type 2 in obese (Chronic) Fracture of femoral neck, right (Acute) Retention, urine (Chronic) Medical History Palliative care patient Beth infection Urinary retention (03/31/16) Infestation by bed bug Hx of malignant melanoma GERD (gastroesophageal reflux disease) H/O menorrhagia Supraventricular tachycardia History of traumatic fracture of hip Unsteady gait Hard of hearing Vision changes Anemia 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 Palliative care encounter Pulmonary hypertension Multiple rib fractures involving four or more ribs Hypertension S/P right hip fracture TIA (transient ischemic attack) Hyperlipidemia Atrial fibrillation CHF (congestive heart failure) LVEF 50-55%, diastolic dysfunction Diabetes Cataracts, bilateral Surgical History History of bilateral cataract extraction History of suprapubic catheter Status post right hip replacement Family History Other Diabetes Heart disease Hyperlipidemia Hypertension Stroke Social History Smoking/Tobacco Use Status: Former Tobacco Use Smoking risk assessment performed?: Yes Alcohol Intake: never Drug use: Never Substance use type: does not use Household members: none Housing: apartment Do you feel safe at home: Yes Do you feel safe in your relationship?: Yes Additional Social history: Lives alone. [address] Does not drive.
--- NOTE | 2024-09-13 14:33 | PDOC.CMPRO ---
Date of service: 09/13/24 Time of Service: 14:35 Care Management Progress Note Progress Note Text Progress Note Text: was asked to see Hope in the ED regarding food, transportation insecurity. Hope was awake and sitting up in bed when CM arrived. She was pleasant and willing to engage in conversation. Hope lives alone and her closest family she maintains a relationship with is in [place]. Hope receives HH RN 1x a week on Thursday' and is affiliated with the [place] [facility] (Fred is her Assembly Instructions Writer at [facility]). Initially, Hope stated to CM that she has no food in her house that she can eat and [facility] refuses to transport her. After clarification, Hope informed that she has canned vegetables and canned meats. Per Hope, she does not like these foods which is why she has not eaten in 3 days. Per Hope, she uses the [facility] bus to travel throughout the community. She reported that sometimes [facility] will not transport her because she takes too long to get onto the bus. She stated that she has plenty of money for food, but she does her grocery shopping in [place], [place], as the local grocery stores are too expensive for the food she likes to eat. Hope said that [facility] bus picks her up on the corner of [address] and [address] in [facility] to go to [facility] for groceries, however she would miss the bus today due to being in the ED. CM educated Hope that [facility] private vehicles would help take her to the grocery store. Hope mentioned that she would like to have house cleaning weekly, and someone to take her grocery shopping 2x a month or someone to do it for her. CM got her a food bag from the kitchen, to help until she could make it to the grocery store again, educated her on [facility] volunteers who will grocery shop for her, and encouraged her to call [facility] when she got home to schedule a private car. CM educated Hope on [employer] and will follow up with her case checker at the [place] [facility]. Discharge Potential Discharge Needs: Other (Resumption of HH RN) Anticipated Barriers to Discharge: None Identified Patient/Family Education Needs: Review discharge instructions, discuss Ask Me Three Transportation: [facility] Plan: Social Determinants of Health Screening Will the Patient Participate in the Screening?: Declined to provide
== END 2024-09-13 13:42 | disposition home or self-care (01) ==
PROVIDERS: Emergency Provider Physician Assistant; PCP Physician Assistant
DX: E83.42 Hypomagnesemia (principal); E11.22 Type 2 diabetes mellitus with diabetic chronic kidney disease; I13.0 Hypertensive heart and chronic kidney disease with heart failure and stage 1 through stage 4 chronic kidney disease, or unspecified chronic kidney disease; N18.9 Chronic kidney disease, unspecified; N50.9 Disorder of male genital organs, unspecified; E78.5 Hyperlipidemia, unspecified; I48.91 Unspecified atrial fibrillation; Z86.73 Personal history of transient ischemic attack (TIA), and cerebral infarction without residual deficits; Z59.41 Food insecurity; Z79.84 Long term (current) use of oral hypoglycemic drugs; Z79.4 Long term (current) use of insulin; Z79.01 Long term (current) use of anticoagulants; Z96.0 Presence of urogenital implants; Z87.891 Personal history of nicotine dependence
CPT/HCPCS: 36415; 80053; 82962; 99283; 83036; 83735; 85025

== ENCOUNTER 2024-09-15 09:40 | Emergency (ER) | payer MEDICARE, MEDICAID, SELFPAY ==
--- NOTE | 2024-09-15 09:50 | ED.GENADUL_ITS ---
Discharge Plan Discharge Details Chief Complaint: Orthopedic Primary Care Provider: Dean Camilo ED Provider: Sonny Nunes Home Meds and New Rx's Prescriptions: No Action Jardiance 10 mg tablet 10 mg PO DAILY (DME) Depend Underwear For Women Lrg Misc See Rx Instructions .Route Qty: 100 11RF Rx Instructions: Depends pull up large magnesium oxide [MagOx] 400 MG tablet 400 mg PO DAILY Qty: 30 0RF omeprazole 20 MG capsule,delayed release(DR/EC) 20 mg PO DAILY Qty: 30 0RF metformin 500 mg tablet 500 mg PO BID atorvastatin 80 mg tablet 80 mg PO DAILY metoprolol succinate 50 mg Tablet Extended Release 24 Hr 150 mg PO DAILY Qty: 90 0RF lisinopril 10 mg Tablet 10 mg PO DAILY Qty: 90 0RF diltiazem HCl 120 mg Capsule,Extended Release 24hr 120 mg PO DAILY Qty: 90 0RF Xarelto 15 mg Tablet 15 mg PO DAILY@1700 Qty: 90 0RF calcium carbonate-vitamin D3 500 mg-3.125 mcg (125 unit) tablet 2 tab PO DAILY aspirin [Children's Aspirin] 81 mg Tablet,Chewable 81 mg PO DAILY Qty: 0 0RF HPI General Date/Time Provider Initiated Documentation: 09/15/24 09:50 . HPI Narrative: MDM This is an overall well-appearing normothermic and nontachycardic 74-year-old female with no new acute medical complaints requiring care management for which she will board in the ED following basic labs. Patient has no pain out of proportion to suggest necrotizing soft tissue infection. She has no nausea no vomiting to suggest ACS no intra-abdominal infection and she has a soft abdomen so I do not feel she requires an ECG nor a CAT scan of her abdomen. No cough to suggest pneumonia. No dysuria nor frequency or flank pain to suggest UTI so I did not send a urinalysis. She does have some right knee pain but is able to straight leg raise so not suspicious for quadriceps or patellar tendon disruption. She has intact range of motion and no fevers no erythema so not concern for septic joint. She does have some bilateral lower extremity mild erythema but this appears more consistent with chronic venous stasis rather than cellulitis so we will defer antibiotics. She is warm well-perfused feet so no concern for critical limb ischemia. She is not confused and has no focal neurological deficits to suggest CVA so do not feel that she requires a CT scan of her head. She did have an x-ray of her right knee several weeks ago and this was unremarkable. I spoke with Sunshine Kilpatrick from care management who had been in touch with the patient's care worker. There is reportedly a daughter who may live locally. Will provide patient with a regular diet and continue to monitor in the ED. 5 PM Patient remained in the emergency department. I had messaged care management but there is not yet a clear plan. I repeated the patient's chemistry and she had persistent but mild hyperkalemia with no significant ECG changes. She is not on any potassium sparing diuretic. If she is to remain in the emergency department overnight she may or may not benefit from a hospitalist consult given her history of diabetes. Will defer this decision and ultimate disposition to Dr. Ford pending reassessment by care management. HPI This is a 74-year-old female with a history of CHF UTI with indwelling Barber CKD atrial fibrillation on rivaroxaban insulin-dependent diabetes right emergency department via EMS after reportedly being evicted from her home this morning. Patient has had right knee and hip pain that is longstanding. The Sherriff reportedly call the ambulance to have the patient transported to the hospital. Patient reports over the area. She denies any nausea vomiting chest pain shortness of breath fevers dysuria and frequency. Exam General: Well-appearing in no acute distress speaking in complete sentences. Head: Normocephalic, atraumatic. Eye: Extraocular eye movements intact. No conjunctival injection. No scleral icterus. Ear, nose, mouth, throat: Grossly normal inspection. Normal voice, handling secretions normally. Neck: Trachea midline. Cardiovascular: Well-perfused distal extremities. Respiratory: Nonlabored respiration. Gastrointestinal: Nondistended abdomen. Musculoskeletal: No significant lower extremity pitting edema. Moving all 4 extremities spontaneously. Mild erythematous rash blanching to the distal tibia. Pelvis stable.She is able to straight leg raise bilaterally. She has no significant right knee effusion. No significant laxity valgus nor varus stress testing. Negative lever test. Skin: Normal for age and race, grossly normal temperature and turgor. No acute rash. Neurologic: Alert and appropriate, no apparent acute deficits. GCS 15. 5 out of 5 bilateral lower extremity strength. Psychiatric: Mood and manner are appropriate. Grooming and personal hygiene are appropriate. Related Data Home Medications ?Medication ?Instructions ?Recorded ?Confirmed magnesium oxide 400 mg (241.3 mg 400 mg PO DAILY #30 tabs 08/02/21 09/15/24 magnesium) tablet (MagOx) omeprazole 20 mg capsule,delayed 20 mg PO DAILY #30 caps 08/02/21 09/15/24 release empagliflozin 10 mg tablet 10 mg PO DAILY 10/16/21 09/15/24 (Jardiance) diaper,brief,adult,disposable #100 ea 09/30/22 09/15/24 (Depend Underwear For Women Large) aspirin 81 mg chewable tablet 81 mg PO DAILY #0 tabs 12/31/22 09/15/24 (Children's Aspirin) atorvastatin 80 mg tablet 80 mg PO DAILY 02/25/24 09/15/24 metformin 500 mg tablet 500 mg PO BID 02/25/24 09/15/24 diltiazem HCl 120 mg 120 mg PO DAILY #90 caps 04/16/24 09/15/24 capsule,extended release 24 hr lisinopril 10 mg tablet 10 mg PO DAILY #90 tabs 04/16/24 09/15/24 metoprolol succinate 50 mg 150 mg (3 x 50 mg) PO DAILY #90 04/16/24 09/15/24 tablet,extended release 24 hr tabs rivaroxaban 15 mg tablet (Xarelto) 15 mg PO DAILY@1700 #90 tabs 04/16/24 09/15/24 calcium 500 mg (as 2 tab PO DAILY 09/15/24 09/15/24 carbonate)-vitamin D3 3.125 mcg (125 unit) tablet Previous Rx's ?Medication ?Instructions ?Recorded magnesium oxide 400 mg (241.3 mg 400 mg PO DAILY #30 tabs 08/02/21 magnesium) tablet (MagOx) omeprazole 20 mg capsule,delayed 20 mg PO DAILY #30 caps 08/02/21 release diaper,brief,adult,disposable #100 ea 09/30/22 (Depend Underwear For Women Large) aspirin 81 mg chewable tablet 81 mg PO DAILY #0 tabs 12/31/22 (Children's Aspirin) diltiazem HCl 120 mg 120 mg PO DAILY #90 caps 04/16/24 capsule,extended release 24 hr lisinopril 10 mg tablet 10 mg PO DAILY #90 tabs 04/16/24 metoprolol succinate 50 mg 150 mg (3 x 50 mg) PO DAILY #90 04/16/24 tablet,extended release 24 hr tabs rivaroxaban 15 mg tablet (Xarelto) 15 mg PO DAILY@1700 #90 tabs 04/16/24 Allergies Allergy/AdvReac Type Severity Reaction Status Date / Time trazodone AdvReac Intermediate NIGHTMARES Verified 09/15/24 10:08 General ARGENIS: 3 Medical Decision Making Quality:SDOH Health Related Social Needs: Health related social needs inadequate housing (Z59.1) , food insecurity (Z59.41), material hardship(utilities) (Z59.12), transportation insecurity (Z59.82), problems related to housing/economic circumstances (Z59.89), feeling lonely/isolated (Z60.8) PFSH All Active Problems (Updated 09/13/24 @ 11:52 by KATHLEEN Curry) Hypomagnesemia (Acute) Food insecurity (Acute) Right knee sprain (Acute) (HFpEF) heart failure with preserved ejection fraction (Acute) Hypomagnesemia (Acute) Acute UTI (Acute) Neuropathy due to type 2 diabetes mellitus (Acute) Onychomycosis (Acute) Fall (Acute) Syncope (Chronic) Diabetic hyperosmolar non-ketotic state (Acute) AMS (altered mental status) (Acute) Acute UTI (Acute) Acute hyperglycemia (Acute) Full code status (Acute) Advance care planning (Acute) Brain TIA (Acute) Vitamin B12 deficiency (Acute) CVA (cerebral vascular accident) (Chronic) Impaired instrumental activities of daily living (Acute) DNR (do not resuscitate) (Acute) Loneliness (Acute) Chronic kidney disease (CKD) (Chronic) Venous stasis dermatitis (Acute) Decreased activities of daily living (ADL) (Acute) Need for home health care (Acute) Nephrolithiasis (Chronic) Sacral decubitus ulcer, stage II (Acute) Wound of right lower extremity (Acute) Hyperglycemia (Acute) Trochanteric bursitis, right hip (Acute) Right ankle sprain (Acute) Hip pain, right (Acute) GI bleed (Acute) Fracture, lumbar vertebra, compression (Acute) PSVT (paroxysmal supraventricular tachycardia) (Acute) Poorly controlled diabetes mellitus (Chronic) Transient neurologic deficit (Acute) Fungal dermatitis (Acute) Atrial flutter (Acute) Vaginal bleeding, abnormal (Acute) Atrial fibrillation and flutter (Chronic) Diabetes mellitus type 2 in obese (Chronic) Fracture of femoral neck, right (Acute) Retention, urine (Chronic) Medical History Palliative care patient Beth infection Urinary retention (03/31/16) Infestation by bed bug Hx of malignant melanoma GERD (gastroesophageal reflux disease) H/O menorrhagia Supraventricular tachycardia History of traumatic fracture of hip Unsteady gait Hard of hearing Vision changes Anemia 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 Palliative care encounter Pulmonary hypertension Multiple rib fractures involving four or more ribs Hypertension S/P right hip fracture TIA (transient ischemic attack) Hyperlipidemia Atrial fibrillation CHF (congestive heart failure) LVEF 50-55%, diastolic dysfunction Diabetes Cataracts, bilateral Surgical History History of bilateral cataract extraction History of suprapubic catheter Status post right hip replacement Family History Other Diabetes Heart disease Hyperlipidemia Hypertension Stroke Social History Smoking/Tobacco Use Status: Former Tobacco Use Smoking risk assessment performed?: Yes Alcohol Intake: never Drug use: Never Substance use type: does not use Household members: none Housing: apartment Do you feel safe at home: Yes Do you feel safe in your relationship?: Yes Additional Social history: Lives alone. [address] Does not drive.
[2024-09-15 09:58] VITALS: BP 158/74; PULSE 74; TEMP 36.9; O2SAT 95
--- NOTE | 2024-09-15 10:30 | DI.RAD_ITS ---
Exam(s) XR PELVIS AP EXAM: XR PELVIS AP CLINICAL HISTORY: Right hip pain. TECHNIQUE: 2D digital imaging was performed. COMPARISON: CR,XR XR HIP RT COMPLETE AP PELVIS from 11/30/2020 CR XR FEMUR RT from 09/15/2024 FINDINGS: Single AP view of the pelvis No evidence of acute fracture. There is a right hip prosthesis noted. Also fastener device the righ t greater trochanter level. Mild degenerative changes in the opposite-left hip. Pubic rami appear i ntact. IMPRESSION: No acute osseous findings in the pelvis. Right hip prosthesis. DATA REPOSITORY: RADIATION DOSE DELIVERED:
--- NOTE | 2024-09-15 10:30 | DI.RAD_ITS ---
Exam(s) XR FEMUR RT EXAM: XR FEMUR RT CLINICAL HISTORY: Right hip pain. TECHNIQUE: 2D digital imaging was performed. COMPARISON: No exams were available for comparison FINDINGS: Two views There is a right hip prosthesis which appears intact. There is also fastener device in the ipsilater al greater trochanter, most probably related to attachment site of gluteus medius tendon. No evidence of fracture or obvious loosening. Mild dystrophic calcifications noted off the lateral a spect of the prosthesis. Femoral stem component appears well situated. There are no fractures lower down in the femur. Calcification is noted in the femoral artery of the calf. IMPRESSION: Right hip prosthesis. No fractures. DATA REPOSITORY: RADIATION DOSE DELIVERED:
[2024-09-15 10:40] VITALS: RESP 14
[2024-09-15 11:33] LABS: Abs Immature Grans 0.03 10^3/uL (0.0-0.06); Absolute Basophil Count 0.07 10^3/uL (0.0-0.2); Absolute Eosinophil Count 0.12 10^3/uL (0.0-0.7); Absolute Lymphocyte Count 1.38 10^3/uL (1.2-3.4); Absolute Monocyte Count 0.64 10^3/uL (0.1-0.8); Absolute Neutrophil Count 4.19 10^3/uL (1.2-6.7); Basophils % 1.1 %; Eosinophils % 1.9 %; HCT 41.1 % (36.0-46.0); HGB 11.6 g/dL (11.2-15.7); Immature Grans % 0.5 %; Lymphocytes % 21.5 %; MCH 21.3 pg (27.0-33.0); MCHC 28.2 % (32.0-36.0); MCV 75 fL (80-95); RBC 5.45 10^6/uL (3.93-5.22); RDW 19.4 % (11.7-14.6); RDW-SD 51.2 fL; WBC 6.43 10^3/uL (4.4-10.8)
[2024-09-15 11:52] LABS: Anion Gap 8.7 mmol/L (3-11); BUN 18 mg/dL (7-18); CO2 29.3 mmol/L (21.0-32.0); CREATININE 1.1 mg/dL (0.55-1.02); Calcium 10.1 mg/dL (8.5-10.1); Chloride 103 mmol/L (98-107); Estimated GFR 52.08 (mL/min/1.73m2); Glucose 70 mg/dL (74-106); Potassium 5.3 mmol/L (3.5-5.1); Sodium 141 mmol/L (136-145)
--- NOTE | 2024-09-15 12:00 | RT.EKG_ITS ---
APPROVED REPORT Exam: Resting ECG Reason for Exam: hyper K Patient Location: E HR:82 bpm ECG Measurements Heart Rate 82 AXIS ND [id number] P [id number] QRSd 82 QRS 33 QT 370 T 44 QTc 432 Conclusion Atrial fibrillation...V-rate 68- 95, irreg A-activity Low voltage, extremity leads...all extremity leads <0.5mV No STEMI
[2024-09-15] MEDS: Calcium Gluconate 4.65 MEQ/10 ML VIAL 4.65 MG IVP (13:24)
[2024-09-15] MEDS: Normal Saline 100 ML (13:24)
[2024-09-15 14:56] VITALS: BP 102/82; PULSE 92; RESP 18
[2024-09-15 15:46] LABS: Anion Gap 11.5 mmol/L (3-11); BUN 19 mg/dL (7-18); CO2 23.5 mmol/L (21.0-32.0); CREATININE 1.2 mg/dL (0.55-1.02); Chloride 102 mmol/L (98-107); Estimated GFR 46.91 (mL/min/1.73m2); Glucose 151 mg/dL (74-106); Potassium 5.2 mmol/L (3.5-5.1); Sodium 137 mmol/L (136-145)
[2024-09-15 17:45] VITALS: BP 103/62; PULSE 82; O2SAT 98
--- NOTE | 2024-09-15 18:01 | PDOC.CMPRO ---
Date of service: 09/15/24 Time of Service: 18:01 Care Management Progress Note Progress Note Text Progress Note Text: RONNIE was asked to meet with Hope in the ED; she presented with back pain after being evicted and removed from her home today by . Hope was sitting up in bed when RONNIE met with her. She stated that she was kicked out today. She stated that she thinks there should be a place for her to go; she expressed interest in finding a new apartment. RONNIE explained that there are many steps to take in order for her to obtain a new apartment, which she expressed understanding of. During the conversation, her son, Sunil called, and she spoke to Sunil at length while RONNIE was in the room. Sunil encouraged her to stay with his sister, Hope's daughter, Beatriz, who lives locally ([place]). Hpoe was opposed to this idea at first, as Beatriz has five dogs, and she doesn't like that they bark a lot. She described to her son how she pays $900/month for a bill that she referred to as the farm deal. She stated that it was more important that she pay this bill than her rent. After talking with Sunil, RONNIE engaged in conversation with Hope again, discussing her options now that she is unhoused. Hope agreed that being out in the cold is not the best idea, and agreed that she would stay with Beatriz for a short period of time, while she looks for another place to live. RONNIE noted that Hope's only HIPAA contact is her daughter, Katharina, who lives in [place], per Hope. Hope provided verbal consent for RONNIE to speak with Sunil and Beatriz to discuss her discharge plan; an SHINGLE PACKER was in the room during this discussion. CM asked [facility] to update her HIPAA. Hope stated that she is independent; she is ambulatory and manages her own medications and personal care. She stated that she would benefit from support with grocery shopping. RONNIE spoke to Sunil, who reached out to Beatriz and left a message about their mother being in the ED, and needing a place to stay. Sunil stated that he lives in [place], and isn't able to come and get his mother tonight. RONNIE spoke to Hope Jones's [employer] family preservation caseworker, who stated that Hope has been in this eviction process for months, and that she was evicted due to not paying her rent; she allegedly owes more than $20k in back rent. CM attempted to contact her daughter, Beatriz, and left two messages. Hope has stayed with Beatriz in the past; Sunil felt that Beatriz would agree to have her stay there again. RONNIE will continue to follow. Hope's family contacts Sunil (son, [place]): [phone] Beatriz (daughter, [facility]): [phone] Katharina (daughter, [place]): [phone] Alek ([employer] family preservation caseworker): [phone] Social Determinants of Health Screening Social Determinants of Health last assessed: 09/15/24 Will the Patient Participate in the Screening?: Yes Do you worry about having a steady place to live?: no Problems where you live: inadequate lighting In the past 12 months, have you had to go without electric, gas, oil or water in your home?: yes Have you or anyone in your house had to go without enough food to eat?: yes 1. Within the past 12 months, we worried whether our food would run out before we got money to buy more.: Often true 2. Within the past 12 months, the food we bought just didn't last and we didn't have money to get more.: Often true Referred to:: Not Applicable ([employer] family preservation caseworker) Has lack of transportation kept you from medical appointments or from doing things needed for daily living?: yes Has anyone in your life made you feel unsafe or unsupported?: yes How hard is it for you to pay for the very basics like food, housing, medical care, and heating? Would you say it is:: Very hard Do you want help finding or keeping work or a job?: I do not need or want help If for any reason you need help with day-to-day activities such as bathing, preparing meals, shopping, managing finances, etc., do you get the help you need?: I don?t need any help How often do you feel lonely or isolated from those around you?: Always Do you speak a language other than Dutch at home?: No Does the patient want assistance with any of the above?: Yes Health Related Social Needs Health related social needs: inadequate housing (Z59.1), food insecurity (Z59.41), transportation insecurity (Z59.82), material hardship(utilities) (Z59.12), problems related to housing/economic circumstances (Z59.89) and feeling lonely/isolated (Z60.8)
--- NOTE | 2024-09-15 18:13 | NUR.NOTE ---
Nursing Note: Patient did not get on [facility] bus as she had requested. The bus has now finished its route for the day. Attempted to call daughter Katharina Busby listed in contacts with no answer.
[2024-09-15 20:06] VITALS: BP 101/65; PULSE 85; RESP 16; O2SAT 95
--- NOTE | 2024-09-15 20:11 | ED.PROG_ITS ---
Date of service: 09/15/24 Time of Service: 20:11 Medical Decision Making Unfortunately no family members called to common take the patient home so will need to be reassessed in the morning by care management again. Quality:SDOH Health Related Social Needs: Health related social needs inadequate housing (Z59.1) , food insecurity (Z59.41), transportation insecurity (Z59.82), material hardship(utilities) (Z59.12), problems related to housing/economic circumstances (Z59.89), feeling lonely/isolated (Z60.8) Discharge Plan Discharge Details Chief Complaint: Orthopedic Clinical Impression: Housing instability Primary Care Provider: Dean Camilo ED Provider: Guillermo Ford Home Meds and New Rx's Prescriptions: No Action Jardiance 10 mg tablet 10 mg PO DAILY (DME) Depend Underwear For Women Lrg Misc See Rx Instructions .Route Qty: 100 11RF Rx Instructions: Depends pull up large magnesium oxide [MagOx] 400 MG tablet 400 mg PO DAILY Qty: 30 0RF omeprazole 20 MG capsule,delayed release(DR/EC) 20 mg PO DAILY Qty: 30 0RF metformin 500 mg tablet 500 mg PO BID atorvastatin 80 mg tablet 80 mg PO DAILY metoprolol succinate 50 mg Tablet Extended Release 24 Hr 150 mg PO DAILY Qty: 90 0RF lisinopril 10 mg Tablet 10 mg PO DAILY Qty: 90 0RF diltiazem HCl 120 mg Capsule,Extended Release 24hr 120 mg PO DAILY Qty: 90 0RF Xarelto 15 mg Tablet 15 mg PO DAILY@1700 Qty: 90 0RF calcium carbonate-vitamin D3 500 mg-3.125 mcg (125 unit) tablet 2 tab PO DAILY aspirin [Children's Aspirin] 81 mg Tablet,Chewable 81 mg PO DAILY Qty: 0 0RF
--- NOTE | 2024-09-15 21:27 | NUR.NOTE ---
Nursing Note: pt brought to zone b for boarding. pt changed into paper scrubs, no bites or itching skin. pt refused shower even with hospital policy education. pt belongings packed into bags, no signs of bed bug infestation. pt hodge bag changed to leg bag to promote safe ambulation to BR and to promote pt comfort. walker given to pt, nurse observed ambulation to be more steady w/ walker vs cane. pt requested water, 16 oz water at pt bedside. pt reports having enough warm blankets and feels comfortable and safe in room.
--- NOTE | 2024-09-15 23:00 | ED.PROG_ITS ---
Date of service: 09/15/24 Time of Service: 23:00 Medical Decision Making This patient was signed out to me. Please see previous notes for H&P and initial eval. In brief, 74yo F presents for homelessness. No acute medical complaints. Medically cleared. No safe discharge plan at at this time as she has no place to stay. Signed out to me with plan to remain in the ED overnight with care management to see again in the morning. Overnight no acute events. Will be signed out to oncoming physician; plan remains as above. Quality:SDOH Health Related Social Needs: Health related social needs inadequate housing (Z59.1) , food insecurity (Z59.41), transportation insecurity (Z59.82), material hardship(utilities) (Z59.12), problems related to housing/economic circumstances (Z59.89), feeling lonely/isolated (Z60.8) Discharge Plan Discharge Details Chief Complaint: Orthopedic Clinical Impression: Housing instability Primary Care Provider: Dean Camilo ED Provider: Alicia Russell Home Meds and New Rx's Prescriptions: No Action Jardiance 10 mg tablet 10 mg PO DAILY (DME) Depend Underwear For Women Lrg Misc See Rx Instructions .Route Qty: 100 11RF Rx Instructions: Depends pull up large magnesium oxide [MagOx] 400 MG tablet 400 mg PO DAILY Qty: 30 0RF omeprazole 20 MG capsule,delayed release(DR/EC) 20 mg PO DAILY Qty: 30 0RF metformin 500 mg tablet 500 mg PO BID atorvastatin 80 mg tablet 80 mg PO DAILY metoprolol succinate 50 mg Tablet Extended Release 24 Hr 150 mg PO DAILY Qty: 90 0RF lisinopril 10 mg Tablet 10 mg PO DAILY Qty: 90 0RF diltiazem HCl 120 mg Capsule,Extended Release 24hr 120 mg PO DAILY Qty: 90 0RF Xarelto 15 mg Tablet 15 mg PO DAILY@1700 Qty: 90 0RF calcium carbonate-vitamin D3 500 mg-3.125 mcg (125 unit) tablet 2 tab PO DAILY aspirin [Children's Aspirin] 81 mg Tablet,Chewable 81 mg PO DAILY Qty: 0 0RF
[2024-09-16 00:37] VITALS: BP 124/74; PULSE 98; RESP 16; O2SAT 99
[2024-09-16 00:38] VITALS: BP 124/74; PULSE 98; RESP 16; O2SAT 99
[2024-09-16] MEDS: metFORMIN 500 MG TAB PO ×2 (07:12→18:47)
[2024-09-16] MEDS: Omeprazole 20 MG CAPCR PO (07:12)
[2024-09-16 07:19] VITALS: BP 115/74; PULSE 95; RESP 16; TEMP 36.6; O2SAT 94
[2024-09-16] MEDS: Magnesium Oxide 400 MG TAB PO (08:24)
[2024-09-16] MEDS: Atorvastatin 40 MG TAB 80 MG PO (08:24)
[2024-09-16] MEDS: Aspirin 81 MG CHEW PO (08:24)
[2024-09-16] MEDS: Calcium 600mg/Vit D 200U TAB 2 TAB PO (08:24)
[2024-09-16] MEDS: Empaglifozin 10 MG TAB PO (08:25)
[2024-09-16] MEDS: Metoprolol CR 50 MG TABCR 150 MG PO (08:25)
[2024-09-16] MEDS: dilTIAZem CD 120 MG CAPCR PO (08:25)
[2024-09-16] MEDS: Lisinopril 10 MG TAB PO (08:26)
--- NOTE | 2024-09-16 15:57 | W.EDPROG ---
Date of service: 09/16/24 Time of Service: 15:57 Medical Decision Making Patient homeless, here awaiting prison plan for safe discharge. Quality:SDOH Health Related Social Needs: Health related social needs inadequate housing (Z59.1), food insecurity (Z59.41), transportation insecurity (Z59.82), material hardship(utilities) (Z59.12), problems related to housing/economic circumstances (Z59.89), feeling lonely/isolated (Z60.8) Discharge Plan Discharge Details Chief Complaint: Orthopedic Clinical Impression: Housing instability Primary Care Provider: Dean Camilo ED Provider: Perry Greene Home Meds and New Rx's Prescriptions: No Action Jardiance 10 mg tablet 10 mg PO DAILY (DME) Depend Underwear For Women Lrg Misc See Rx Instructions .Route Qty: 100 11RF Rx Instructions: Depends pull up large magnesium oxide [MagOx] 400 MG tablet 400 mg PO DAILY Qty: 30 0RF omeprazole 20 MG capsule,delayed release(DR/EC) 20 mg PO DAILY Qty: 30 0RF metformin 500 mg tablet 500 mg PO BID atorvastatin 80 mg tablet 80 mg PO DAILY metoprolol succinate 50 mg Tablet Extended Release 24 Hr 150 mg PO DAILY Qty: 90 0RF lisinopril 10 mg Tablet 10 mg PO DAILY Qty: 90 0RF diltiazem HCl 120 mg Capsule,Extended Release 24hr 120 mg PO DAILY Qty: 90 0RF Xarelto 15 mg Tablet 15 mg PO DAILY@1700 Qty: 90 0RF calcium carbonate-vitamin D3 500 mg-3.125 mcg (125 unit) tablet 2 tab PO DAILY aspirin [Children's Aspirin] 81 mg Tablet,Chewable 81 mg PO DAILY Qty: 0 0RF
--- NOTE | 2024-09-16 17:46 | CMPROGNOTE_ITS ---
Date of service: 09/16/24 Time of Service: 17:46 Care Management Progress Note Progress Note Text Progress Note Text: RONNIE was asked to see Hope for help with finding housing. Hope was evicted from her apartment yesterday. She was brought to the ED by EMS, when the tool turret lathe set up operator called them for her due to c/o back pain. Hope has been housed in the ER since yesterday morning. Per reports Hope has not been paying her rent, and is in arrears near $30,000. 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 It is believed that she is the victim of scammers. CM sat with Hope while she called the housing dept of economic services. Hope was only partially able to answer the intake questions, due to not understanding the questions. CM helped with the call. Hope did not take her belongings with her yesterday and has no wallet or phone. She does not have her ID. Many of the hotels in the [facility] require ID, and those that do not are full. Housing dept searched the entire state for her. Housing dept [phone], but they are closed on weekends. It was recommended that Hope call 211 daily to look for a hotel room. RONNIE had attempted to call Hope's daughter, Beatriz, over a dozen times today. RONNIE was unable to leave a message. CM called the local tool turret lathe set up operator and asked for a wellness check on Beatriz. Per the tool turret lathe set up operator, Beatriz is fine. She stated to the tool turret lathe set up operator that she has no intentions of picking up her mother or helping her out in any way. RONNIE has also spoken with Hope's son, Sunil, a few times during the day. He lives in [place], and is unable to take his mom unless he has full Power of [employer] and can handle her finances. He was encouraged to call the [facility] for advice on that. Sunil questioned his mom's competency and asked that she be evaluated. This request was passed on to the ER provider. RONNIE also spoke to daughter, Katharina. Katharina lives in [place], but would be willing to take her mother in if her Mom could get to [place]. This was also discussed with Sunil, and CM strongly encouraged that he have a difficult talk with his sister. CM encouraged Sunil to pick his Mom up and take her to the airport, and arrange for Katharina to receive her Mom in [place]. CM also spoke with Hope's sister, who is unable to take Hope in as she lives in a rented room in a privately owned home. A Community Health Worker, from [employer], is meeting with the sterile supply technician of the building Hope was living in to retrieve some of her belongings, her purse, phone and medications. Once she has her ID, it is encouraged that she call 211. [employer] will pay for a taxi to wherever Hope ends up. Discharge Potential Discharge Needs: Other (Hope is not currently inpatient) Transportation: Other (taxi - [employer] will pay) Plan: Anticipate that Hope will find emergency housing tomorrow, once she has her ID and has called 211. She will transport via taxi. CM will continue to follow and support. Social Determinants of Health Screening Social Determinants of Health last assessed: 09/16/24 Will the Patient Participate in the Screening?: Yes Do you worry about having a steady place to live?: no Problems where you live: inadequate lighting In the past 12 months, have you had to go without electric, gas, oil or water in your home?: yes Have you or anyone in your house had to go without enough food to eat?: yes 1. Within the past 12 months, we worried whether our food would run out before we got money to buy more.: Often true 2. Within the past 12 months, the food we bought just didn't last and we didn't have money to get more.: Often true Referred to:: Not Applicable ([employer] case management coordinator) Has lack of transportation kept you from medical appointments or from doing things needed for daily living?: yes Has anyone in your life made you feel unsafe or unsupported?: yes How hard is it for you to pay for the very basics like food, housing, medical care, and heating? Would you say it is:: Very hard Do you want help finding or keeping work or a job?: I do not need or want help If for any reason you need help with day-to-day activities such as bathing, preparing meals, shopping, managing finances, etc., do you get the help you n eed?: I don?t need any help How often do you feel lonely or isolated from those around you?: Always Do you speak a language other than Tanzanian at home?: No Does the patient want assistance with any of the above?: Yes Health Related Social Needs Health related social needs: inadequate housing (Z59.1), food insecurity (Z59.41), transportation insecurity (Z59.82), material hardship(utilities) (Z59.12), problems related to housing/economic circumstances (Z59.89) and feeling lonely/isolated (Z60.8)
[2024-09-16] MEDS: Rivaroxaban 15 MG TABLET PO (18:57)
--- NOTE | 2024-09-16 22:37 | ED.PROG_ITS ---
Date of service: 09/16/24 Time of Service: 22:38 Medical Decision Making This patient was signed out to me. Please see previous notes for H&P and initial eval. In brief, 74yo F presents for homelessness. No acute medical complaints. Medically cleared. Remains in the ED with no safe discharge plan. Overnight no acute events. Will be signed out to oncoming physician; plan remains as above. Quality:SDOH Health Related Social Needs: Health related social needs inadequate housing (Z59.1) , food insecurity (Z59.41), transportation insecurity (Z59.82), material hardship(utilities) (Z59.12), problems related to housing/economic circumstances (Z59.89), feeling lonely/isolated (Z60.8) Discharge Plan Discharge Details Chief Complaint: Orthopedic Clinical Impression: Housing instability Primary Care Provider: Dean Camilo ED Provider: Alicia Russell Home Meds and New Rx's Prescriptions: No Action Jardiance 10 mg tablet 10 mg PO DAILY (DME) Depend Underwear For Women Lrg Misc See Rx Instructions .Route Qty: 100 11RF Rx Instructions: Depends pull up large magnesium oxide [MagOx] 400 MG tablet 400 mg PO DAILY Qty: 30 0RF omeprazole 20 MG capsule,delayed release(DR/EC) 20 mg PO DAILY Qty: 30 0RF metformin 500 mg tablet 500 mg PO BID atorvastatin 80 mg tablet 80 mg PO DAILY metoprolol succinate 50 mg Tablet Extended Release 24 Hr 150 mg PO DAILY Qty: 90 0RF lisinopril 10 mg Tablet 10 mg PO DAILY Qty: 90 0RF diltiazem HCl 120 mg Capsule,Extended Release 24hr 120 mg PO DAILY Qty: 90 0RF Xarelto 15 mg Tablet 15 mg PO DAILY@1700 Qty: 90 0RF calcium carbonate-vitamin D3 500 mg-3.125 mcg (125 unit) tablet 2 tab PO DAILY aspirin [Children's Aspirin] 81 mg Tablet,Chewable 81 mg PO DAILY Qty: 0 0RF
[2024-09-17] MEDS: Atorvastatin 40 MG TAB 80 MG PO (08:21)
[2024-09-17] MEDS: metFORMIN 500 MG TAB PO (08:21)
[2024-09-17] MEDS: Empaglifozin 10 MG TAB PO (08:21)
[2024-09-17] MEDS: Omeprazole 20 MG CAPCR PO (08:21)
[2024-09-17] MEDS: Calcium 600mg/Vit D 200U TAB 2 TAB PO (08:21)
[2024-09-17] MEDS: Magnesium Oxide 400 MG TAB PO (08:21)
[2024-09-17] MEDS: Aspirin 81 MG CHEW PO (08:21)
[2024-09-17] MEDS: dilTIAZem CD 120 MG CAPCR PO (08:21)
[2024-09-17] MEDS: Lisinopril 10 MG TAB PO (08:21)
[2024-09-17] MEDS: Metoprolol CR 50 MG TABCR 150 MG PO (08:22)
--- NOTE | 2024-09-17 08:30 | ED.PROG_ITS ---
Date of service: 09/17/24 Time of Service: 08:30 Medical Decision Making patient homeless and no safe discharge plan in place. care management working on this. Quality:SDOH Health Related Social Needs: Health related social needs inadequate housing (Z59.1) , food insecurity (Z59.41), transportation insecurity (Z59.82), material hardship(utilities) (Z59.12), problems related to housing/economic circumstances (Z59.89), feeling lonely/isolated (Z60.8) Discharge Plan Discharge Details Chief Complaint: Orthopedic Clinical Impression: Housing instability Primary Care Provider: Dean Camilo ED Provider: Syeda Dukes Home Meds and New Rx's Prescriptions: No Action Jardiance 10 mg tablet 10 mg PO DAILY (DME) Depend Underwear For Women Lrg Misc See Rx Instructions .Route Qty: 100 11RF Rx Instructions: Depends pull up large magnesium oxide [MagOx] 400 MG tablet 400 mg PO DAILY Qty: 30 0RF omeprazole 20 MG capsule,delayed release(DR/EC) 20 mg PO DAILY Qty: 30 0RF metformin 500 mg tablet 500 mg PO BID atorvastatin 80 mg tablet 80 mg PO DAILY metoprolol succinate 50 mg Tablet Extended Release 24 Hr 150 mg PO DAILY Qty: 90 0RF lisinopril 10 mg Tablet 10 mg PO DAILY Qty: 90 0RF diltiazem HCl 120 mg Capsule,Extended Release 24hr 120 mg PO DAILY Qty: 90 0RF Xarelto 15 mg Tablet 15 mg PO DAILY@1700 Qty: 90 0RF calcium carbonate-vitamin D3 500 mg-3.125 mcg (125 unit) tablet 2 tab PO DAILY aspirin [Children's Aspirin] 81 mg Tablet,Chewable 81 mg PO DAILY Qty: 0 0RF
[2024-09-17 08:32] VITALS: BP 120/68; PULSE 92; RESP 18; TEMP 36.8; O2SAT 97
--- NOTE | 2024-09-17 11:41 | PT.INIE ---
PT Notes Visit Reasons: [place]-Back Pain Inpatient Physical Therapy Evaluation Date: 09/17/2024] Referring Doctor: Syeda Hawley PT Orders: PT CONSULT: [] Precautions: standard, fall risk Patient Profile/Admitting Diagnosis: []74-year-old female preseted to ED 09/13/24 with CHF, UTI, indwelling Barber catheter, diabetes, CKD, atrial flutter on Xarelto, insulin-dependent, and hypertension. Pt is homeless, food insecurity and is awaiting safe housing. PMHX: []PFSH All Active Problems (Updated 09/13/24 @ 11:52 by KATHLEEN Curry) Hypomagnesemia (Acute) Food insecurity (Acute) Right knee sprain (Acute) (HFpEF) heart failure with preserved ejection fraction (Acute) Hypomagnesemia (Acute) Acute UTI (Acute) Neuropathy due to type 2 diabetes mellitus (Acute) Onychomycosis (Acute) Fall (Acute) Syncope (Chronic) Diabetic hyperosmolar non-ketotic state (Acute) AMS (altered mental status) (Acute) Acute UTI (Acute) Acute hyperglycemia (Acute) Full code status (Acute) Advance care planning (Acute) Brain TIA (Acute) Vitamin B12 deficiency (Acute) CVA (cerebral vascular accident) (Chronic) Impaired instrumental activities of daily living (Acute) DNR (do not resuscitate) (Acute) Loneliness (Acute) Chronic kidney disease (CKD) (Chronic) Venous stasis dermatitis (Acute) Decreased activities of daily living (ADL) (Acute) Need for home health care (Acute) Nephrolithiasis (Chronic) Sacral decubitus ulcer, stage II (Acute) Wound of right lower extremity (Acute) Hyperglycemia (Acute) Trochanteric bursitis, right hip (Acute) Right ankle sprain (Acute) Hip pain, right (Acute) GI bleed (Acute) Fracture, lumbar vertebra, compression (Acute) PSVT (paroxysmal supraventricular tachycardia) (Acute) Poorly controlled diabetes mellitus (Chronic) Transient neurologic deficit (Acute) Fungal dermatitis (Acute) Atrial flutter (Acute) Vaginal bleeding, abnormal (Acute) Atrial fibrillation and flutter (Chronic) Diabetes mellitus type 2 in obese (Chronic) Fracture of femoral neck, right (Acute) Retention, urine (Chronic) Medical History Palliative care patient Beth infection Urinary retention (03/31/16) Infestation by bed bug Hx of malignant melanoma GERD (gastroesophageal reflux disease) H/O menorrhagia Supraventricular tachycardia History of traumatic fracture of hip Unsteady gait Hard of hearing Vision changes Anemia 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 Palliative care encounter Pulmonary hypertension Multiple rib fractures involving four or more ribs Hypertension S/P right hip fracture TIA (transient ischemic attack) Hyperlipidemia Atrial fibrillation CHF (congestive heart failure) LVEF 50-55%, diastolic dysfunctionDiabetes Cataracts, bilateral Surgical History History of bilateral cataract extraction History of suprapubic catheter Status post right hip replacement Social History/Home Situation: Pt is homeless and has food insecurity, she has been in ED x 4 days Current Functional Limitations: Unsteady gait, had been using cane, states she had 4WRW but doesn't have it anymore, issued FWW Equipment Owned/DME:Issue FWW in ED Subjective: Objective: General Observation: Pt is in ED, laying in bed but sits up upon entering Mental Status: A and O x3 Pain: no c/o pain, sometimes she states right knee Vital Signs: monitored by nursing staff ROM: Right Upper Extremity: WFL Left Upper Extremity: WFL Right Lower Extremity: WFL Left Lower Extremity: WFL Strength: Right Upper Extremity: WFL Left Upper Extremity: WFL Right Lower Extremity: WFL Left Lower Extremity: WFL Sensation: Decreased sensation both LE to light touch Bed Mobility/Transfers: Independent with all transfers rolling in bed sit to stand stand to sit patient response to verbal cueing for safe hand placement for sit to stand to RW Gait: Ambulates with RW independently x 100 feet Balance: Static Sitting: Good Dynamic Sitting: Good Static Standing: Good able to stand without holding RW Dynamic Standing: Fair Special Tests: Mobility Limitations Standardized Measure [facility] AM-PAC 6 clicks Basic Mobility Inpatient Short Form: Raw Score: 24 standardized Score: CMS Score: 0 Informed Consent/Education: Patient instructed in purpose of PT consult and plan of care. Assessment: Patient is a 74 year old female referred to physical therapy services with the diagnosis of CHF, UTI, homeless and phobic food insecurity . Patient presents with clinical signs and symptoms consistent with as outlined in ED, as demonstrated by the following impairment level findings: Patient has increased fall risk due to unsteadiness with balance however we issue her a RW and she is able to move about reasonably well.. Impairments are contributing to the following functional limitations: AMPAC score. Patient is assessed as a Low 19610 complexity based on the following: History: As outlined Examination: as outlined Presentation: Stable Decision Making: Low Goals: Independent ambulation with FWW for improved stability. Goal is met Plan of Care/Treatment Plan: D/C with F WW for improved stability no need for skilled physical therapy DISCHARGE RECOMMENDATIONS: [] [] Home with no services , patient being discharged to hotel room that has been secured in [place][] TREATMENT CODE/TIME:88317 15' 11:45-12:00
--- NOTE | 2024-09-17 17:13 | CMDISCH_ITS ---
Date of service: 09/17/24 Time of Service: 11:00 LACE Index Scoring Tool Questions: Length of Stay (in days): 2 Was the patient admitted via the E.D.?: Yes Comorbidities: Cerebrovascular Disease, Diabetes w/o Complication, Congestive Heart Failure, Any Tumor and Liver or Renal Disease E.D. Visits: 8 Answers: Total Score: 14 Risk of Readmission: High Risk Care Management Discharge Plan Reason for Hospitalization: Hope was not admitted to the hospital but rather had an extended ED stay due to homelessness. Discharge Plan: Hope was evicted from her apartment on 09/15/24 by the [facility]'s dept. after many months of notices, court hearings and unpaid rent. She was brought to the ED when she complained of back pain. She was cleared medically however could not be discharged without a safe discharge plan. Hope remained for about 48 hours until a plan could be formulated. Today Hope was able to call 211 and secure a room at the [facility] in [place]. CM coordinated transportation with [facility] and she was transported at 2:30 pm. Patient/Family Education Needs: expectations, limitations Services Needed at Discharge: Transportation SDOH Health Related Social Needs: Health related social needs inadequate housing (Z59.1) , food insecurity (Z59.41), transportation insecurity (Z59.82), material hardship(utilities) (Z59.12), problems related to housing/economic circumstances (Z59.89), feeling lonely/isolated (Z60.8)
== END 2024-09-17 14:13 | disposition home or self-care (01) ==
PROVIDERS: Emergency Medicine; Emergency Provider Emergency Medicine; PCP Physician Assistant
DX: Z59.00 Homelessness unspecified (principal); Z59.41 Food insecurity; Z59.82 Transportation insecurity; Z59.12 Inadequate housing utilities; Z59.89 Other problems related to housing and economic circumstances; Z60.8 Other problems related to social environment; M25.551 Pain in right hip; M25.561 Pain in right knee; I50.9 Heart failure, unspecified; I48.91 Unspecified atrial fibrillation; E11.69 Type 2 diabetes mellitus with other specified complication; L89.151 Pressure ulcer of sacral region, stage 1
CPT/HCPCS: 00123; 36415; 36416; 73552; 80048; 82962; 93005; 96374; 97161; 99285; 72170; 85025; 93010; J0612